=== PATIENT | female | born 1955 | race Caucasian/White ===

== ENCOUNTER 2023-01-25 12:10 | Emergency (ER) | payer MEDICARE, OTHER, SELFPAY ==
[2023-01-25 12:13] VITALS: PULSE 81; RESP 20; TEMP 36.8; O2SAT 97; BMI 51.2
[2023-01-25 12:25] VITALS: BP 180/98
[2023-01-25 12:45] VITALS: O2SAT 97
[2023-01-25 12:46] VITALS: RESP 16; O2SAT 97
--- NOTE | 2023-01-25 12:47 | PC.NURSE ---
THIS NURSE ATTEMPTS TO ELEVATE LEGS IN BED PT REFUSES TO LAY DOWN DUE TO HIP PAIN PT REQUESTING TO SIT AT SIDE OF BED WHEELED CHAIR PLACED AND FEET ELEVATED
--- NOTE | 2023-01-25 14:23 | ED.GENADUL1 ---
HPI - General Adult General Chief complaint: Extremity Problem, Nontraumatic Stated complaint: leg swelling Time Seen by Provider: 01/25/23 14:23 Source: patient Mode of arrival: walk-in Limitations: no limitations History of Present Illness HPI narrative: Patient is a Chronic bilateral peripheral edema/venous stasis dermatitis. Patient is not happy with her physician. Patient sees Dr. Jordin Mathew, [facility]. . All systems are negative except as noted/marked. All systems reviewed and otherwise negative. . Nurses note and vital signs reviewed and patient is not hypoxic. General: The patient appears well and in no apparent distress. Patient is resting comfortably on cart. Patient is not toxic, lethargic, or listless Skin: Warm, dry, no pallor noted. There is no rash noted. No petechiae, purpura. Patient has chronic mild venous stasis dermatitis discoloration to bilateral lower extremities Head: Normocephalic, atraumatic Eye: Normal conjunctiva, no drainage, EOMI. PERRL Ears, Nose, Mouth, and Throat: oral mucosa is moist. Nares patent. Mouth without vesicles. Cardiovascular: Regular Rate and Rhythm, no murmur, gallop, rub Respiratory: Patient is in no distress, no accessory muscle use, lungs are clear to auscultation, no wheezing, rales or rhonchi Back: non-tender, no CVA tenderness bilaterally to percussion. No CT LS midline pain GI: soft, obese, no tenderness to palpation, no masses appreciated. No rebound, guarding, or rigidity noted. No flank pain bilateral, No distention Musculoskeletal: Patient has full range of motion of all of the extremities, no motor, sensory, or focal neurological deficits. Patient has chronic bilateral lower show many peripheral edema, left greater than right. Patient has no pain to the posterior aspect of bilateral posterior thighs, popliteal fossa, or bilateral calves. Patient has no evidence of cellulitis to bilateral lower extremities, no lymphangitis, pelvic from his or not warm, hot, no signs of infection or venous ulcers. Neurological: A&O x3, normal speech Psychiatric: Cooperative Related Data Home Medications Medication Instructions Recorded Confirmed atorvastatin 10 mg tablet 10 mg PO DAILY 01/25/23 01/25/23 cholecalciferol (vitamin D3) 125 125 mcg PO DAILY 01/25/23 01/25/23 mcg (5,000 unit) capsule esomeprazole magnesium 20 mg 20 mg PO DAILY 01/25/23 01/25/23 capsule,delayed release (Nexium) furosemide 20 mg tablet 20 mg PO DAILY 01/25/23 01/25/23 losartan 50 mg tablet (Cozaar) 50 mg PO DAILY 01/25/23 01/25/23 metoprolol tartrate 50 mg tablet 50 mg PO BID 01/25/23 01/25/23 multivitamin 1 tab PO DAILY 01/25/23 01/25/23 potassium chloride 10 mEq 10 meq PO DAILY 01/25/23 01/25/23 capsule,extended release Allergies Allergy/AdvReac Type Severity Reaction Status Date / Time fentanyl Allergy Intermediate Verified 01/25/23 12:18 Sulfa (Sulfonamide Allergy Intermediate Verified 01/25/23 12:18 Antibiotics) adhesive tape AdvReac Intermediate Verified 01/25/23 12:18 Exam Constitutional: Vital Signs, click to edit/add: Vital Signs - 24 hr 01/25/23 12:13 01/25/23 12:45 01/25/23 12:46 Temperature 98.2 F Pulse Rate [Monito r] 81 Respiratory Rate 20 16 Blood Pressure Pulse Oximetry 97 97 97 Oxygen Delivery Me thod Room Air Room Air 01/25/23 12:25 Temperature Pulse Rate [Monito r] Respiratory Rate Blood Pressure 180/98 H Pulse Oximetry Oxygen Delivery Me thod Course Vital Signs Vital signs: Vital Signs Temperature 98.2 F 01/25/23 12:13 Pulse Rate 81 01/25/23 12:13 Respiratory Rate 20 01/25/23 12:13 Pulse Oximetry 97 01/25/23 12:13 Temperature 98.2 F 01/25/23 12:13 Pulse Rate 81 01/25/23 12:13 Respiratory Rate 16 01/25/23 12:46 Blood Pressure 180/98 H 01/25/23 12:25 Pulse Oximetry 97 01/25/23 12:46 Oxygen Delivery Method Room Air 01/25/23 12:46 Medical Decision Making MDM Narrative Medical decision making narrative: Patient has chronic bilateral lower show any peripheral edema, chronic lower extremity venous stasis dermatitis. Patient was told to increase her Lasix 20 mg a day to 40 mg a day for the next 3-5 days. Patient is frustrated with her PCP, a new PCP list was given. Patient is only someone messaged her railway signal electrician through my chart to the [facility], she called a few times last week and was on hold for lengthy amount of time and gave up. Patient was encouraged to call again incident of the messaged to my chart to follow-up with her railway signal electrician they can have manage her chronic bilateral peripheral edema and venous stasis. No acute indication for any testing in the Emergency Room at this time, patient has multiple chronic complaints. Patient was told to come to the Emergency Room by her PCP and urgent care, but there is no acute symptoms today, these are all chronic ongoing issues that need to be medically managed. Patient agrees, thankful for help and encouragement increase Lasix for the next 3-5 days and follow-up Discharge Plan Discharge Chief Complaint: Extremity Problem, Nontraumatic Clinical Impression: Chronic venous stasis dermatitis Patient Disposition: Home, Self-Care Time of Disposition Decision: 14:26 Prescriptions / Home Meds: No Action losartan [Cozaar] 50 mg tablet 50 mg PO DAILY esomeprazole magnesium [Nexium] 20 mg capsule,delayed release(DR/EC) 20 mg PO DAILY metoprolol tartrate 50 mg tablet 50 mg PO BID atorvastatin 10 mg tablet 10 mg PO DAILY multivitamin Tablet 1 tab PO DAILY cholecalciferol (vitamin D3) 125 mcg (5,000 unit) capsule 125 mcg PO DAILY furosemide 20 mg tablet 20 mg PO DAILY potassium chloride 10 mEq capsule, extended release 10 meq PO DAILY Instructions: Stasis Dermatitis (ED), Edema (ED) Additional Instructions: Double dose of Lasix to 40 mg once a day For the next 3-5 days. Call your railway signal electrician today to make a follow-up appointment at the [facility]. Also sent another message through my chart tear railway signal electrician at the clinic clinic for follow-up to help with chronic bilateral peripheral edema. Stand Alone Forms: Portal Instructions Referrals: Sheila Terry MD [Primary Care Provider] - 1 week Discharge Date/Time: 01/25/23 14:32
== END 2023-01-25 14:32 | disposition home or self-care (01) ==
PROVIDERS: Emergency Provider Emergency Medicine; PCP Specialist
DX: I87.2 Venous insufficiency (chronic) (peripheral) (principal); Z79.899 Other long term (current) drug therapy
CPT/HCPCS: 99281

== ENCOUNTER 2023-04-23 07:23 | Emergency (ER) | payer MEDICARE, OTHER, SELFPAY ==
[2023-04-23 07:28] VITALS: BP 170/100; PULSE 70; RESP 18; TEMP 36.6; O2SAT 97; BMI 48.4
--- NOTE | 2023-04-23 07:40 | XR_ITS ---
The [address] [address] Patient Name: MINAL CAPUTO MRN: [id number] date: 1955 Sex: F Assigned Patient Location: ER Current Patient Location: ER Accession/Order Number: [id number] Exam Date: 04/23/2023 08:00 Report Date: 04/23/2023 08:23 At the request of: RICCO ROSEN Procedure: XR hip LT 2V w/ pelvis XR hip LT 2V w/ pelvis, 04/23/2023 8:00 AM EDT, OH001 INDICATION: pain COMPARISON: None. TECHNIQUE: 2 views of the hip obtained. An AP view of the pelvis included. FINDINGS: The osseous structures appear intact. There is normal alignment. There is marked narrowing of the left hip joint space with marginal osteophyte formation. There are no obvious blastic or lytic lesions. Note is made of marked levocurvature in the lower lumbar spine with evidence of posterior fusion at L4-L5. XR/XR hip LT 2V w/ pelvis IMPRESSION: No acute osseous injury with normal alignment. Advanced degenerative change in the left hip joint. Electronically authenticated by: BENITEZ LOPEZ Date: 04/23/2023 08:23
--- NOTE | 2023-04-23 07:43 | ED.LOWEXI1 ---
HPI - Extremity Injury (Lower) General Chief Complaint: Extremity Injury, Lower Stated Complaint: LOWER EXTREMITY PAIN LEFT HIP Time Seen by Provider: 04/23/23 07:43 Source: patient Mode of arrival: walk-in Limitations: no limitations History of Present Illness HPI Narrative: This document has been composed with a new electronic medical record and dragging voice recognition system. This document may not fully inaccurately reflect the entirety of the patient encounter.this patient's here with chief complaint of left hip pain. She's been fully evaluated by orthopedics at the [facility] roughly 1 year ago. They suggested that she needed surgery but unfortunately because of her obesity the were not able to perform the surgery and they advised her to lose weight. 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 She does not have pain acutely today in her low back there is no radiculopathy in her lumbar area she says the pain is primarily over the left lateral hip area. There is no tingling or numbness at this time in her leg. However she also has secondary complaint of pain in her neck that radiates down her right arm. That was also evaluated [facility] and they did not suggest surgery at that time. She's not had any new injuries to the neck area. She does take Celebrex daily basis. She does have a primary care doctor in the community. She has not been offered weight loss medications and I suggest that she talk to her primary care doctor about that possibility. Related Data Home Medications Medication Instructions Recorded Confirmed atorvastatin 10 mg tablet 10 mg PO DAILY 01/25/23 01/25/23 cholecalciferol (vitamin D3) 125 125 mcg PO DAILY 01/25/23 01/25/23 mcg (5,000 unit) capsule esomeprazole magnesium 20 mg 20 mg PO DAILY 01/25/23 01/25/23 capsule,delayed release (Nexium) furosemide 20 mg tablet 20 mg PO DAILY 01/25/23 01/25/23 losartan 50 mg tablet (Cozaar) 50 mg PO DAILY 01/25/23 01/25/23 metoprolol tartrate 50 mg tablet 50 mg PO BID 01/25/23 01/25/23 multivitamin 1 tab PO DAILY 01/25/23 01/25/23 potassium chloride 10 mEq 10 meq PO DAILY 01/25/23 01/25/23 capsule,extended release celecoxib 100 mg capsule (Celebrex) 100 mg PO DAILY 04/23/23 04/23/23 Allergies Allergy/AdvReac Type Severity Reaction Status Date / Time fentanyl Allergy Intermediate Verified 01/25/23 12:18 Sulfa (Sulfonamide Allergy Intermediate Verified 01/25/23 12:18 Antibiotics) adhesive tape AdvReac Intermediate Verified 01/25/23 12:18 PFSH PFSH Social History Smoking status: Never smoker Exam Narrative Exam Narrative: patient awake alert pleasant is able to stand and bear weight. Points to her lateral hip as being the area discomfort. She prefers to sit in a chair rather than on the bed. Overall she's pleasant cooperative she has a host of medical problems are being managed by her primary care doctor. She's had at least two back surgeries done at the [facility] and has been evaluated for her hip at that institution as well. Weight loss seems to be the main challenge and problem as able do surgery until she loses the wait. I suggested she talk to her primary care doctor about prescribing one of the new medications for weight loss and appetite suppression. They are exxtremely effective and may be helpful. Constitutional Vital Signs, click to edit/add: Last Vital Signs Temp 98 F 04/23/23 07:28 Pulse 70 04/23/23 07:28 Resp 18 04/23/23 07:28 BP 170/100 H 04/23/23 07:28 Pulse Ox 97 04/23/23 07:28 O2 Del Method Room Air 04/23/23 07:28 Course Vital Signs Vital signs: Vital Signs Temperature 98 F 04/23/23 07:28 Pulse Rate 70 04/23/23 07:28 Respiratory Rate 18 04/23/23 07:28 Blood Pressure 170/100 H 04/23/23 07:28 Pulse Oximetry 97 04/23/23 07:28 Oxygen Delivery Method Room Air 04/23/23 07:28 Temperature 98 F 04/23/23 07:28 Pulse Rate 70 04/23/23 07:28 Respiratory Rate 18 04/23/23 07:28 Blood Pressure 170/100 H 04/23/23 07:28 Pulse Oximetry 97 04/23/23 07:28 Oxygen Delivery Method Room Air 04/23/23 07:28 MDM - Extremity Injury (Lower) MDM Narrative Medical decision making narrative: x-rays were done to make sure there is no occult fracture in fact there is none. However she is bone on bone in that left hip joint. As discuss earlier on the advised her to follow up with PCP to consider weight loss medication so she is a candidate to have his hip fixed. She also has a history of stasis dermatitis with her legs and she's not wearing her support stockings, I suggested that she go to a medical supply house to get her stockings back on to prevent any developing cellulitis. Discharge Plan Discharge Chief Complaint: Extremity Injury, Lower Clinical Impression: Degenerative joint disease of left hip Patient Disposition: Home, Self-Care Time of Disposition Decision: 09:10 Prescriptions / Home Meds: No Action losartan [Cozaar] 50 mg tablet 50 mg PO DAILY esomeprazole magnesium [Nexium] 20 mg capsule,delayed release(DR/EC) 20 mg PO DAILY metoprolol tartrate 50 mg tablet 50 mg PO BID atorvastatin 10 mg tablet 10 mg PO DAILY multivitamin Tablet 1 tab PO DAILY cholecalciferol (vitamin D3) 125 mcg (5,000 unit) capsule 125 mcg PO DAILY furosemide 20 mg tablet 20 mg PO DAILY potassium chloride 10 mEq capsule, extended release 10 meq PO DAILY celecoxib [Celebrex] 100 mg capsule 100 mg PO DAILY Additional Instructions: prednisone burst for nine days. Off work today and tomorrow, follow-up with primary care doctor to discuss weight loss medication Stand Alone Forms: Portal Instructions Referrals: Physician,Non-Staff, [Primary Care Provider] - 1 week
== END 2023-04-23 09:17 | disposition home or self-care (01) ==
PROVIDERS: Emergency Provider Emergency Medicine Emergency Medical Services
DX: M16.12 Unilateral primary osteoarthritis, left hip (principal); E66.9 Obesity, unspecified; Z68.42 Body mass index [BMI] 45.0-49.9, adult; Z79.899 Other long term (current) drug therapy
CPT/HCPCS: 73502; 99283

== ENCOUNTER 2023-11-05 19:30 | Inpatient (IN) | payer MEDICARE, OTHER, SELFPAY ==
[2023-11-05] VITALS (21 sets, daily range): BP systolic 157–202; BP diastolic 61–85; PULSE 74–93; RESP 12–22; TEMP 36.6; O2SAT 90–97; BMI 48.5; BMI 26.0
--- NOTE | 2023-11-05 19:51 | XR_ITS ---
The [address] [address] Patient Name: MINAL CAPUTO MRN: [id number] date: 1955 Sex: F Assigned Patient Location: ER Current Patient Location: ER Accession/Order Number: [id number] Exam Date: 11/05/2023 19:58 Report Date: 11/05/2023 21:05 At the request of: TAWANA PALMA Procedure: XR chest 1V EXAM: XR chest 1V HISTORY: short of breath COMPARISON: 12/09/[address] chest and chest x-ray. TECHNIQUE: AP portable upright chest x-ray. FINDINGS: Assessment limited due to patient size and body habitus. Cardiac silhouette enlarged but unchanged. No definite infiltrate or edema seen lungs although lung base assessment compromised by overlying soft tissues. Appears similar to previous. MediPort catheter noted on the right tip probably in the area of the proximal SVC. No definite pleural effusion or pneumothorax. Slight spinal hardware/Valadez rods partially imaged similar to previous. XR/XR chest 1V IMPRESSION: Chest x-ray appears stable without new or increasing lung density or pleural effusion. Electronically authenticated by: GALLO VÁSQUEZ Date: 11/05/2023 21:05
--- NOTE | 2023-11-05 19:51 | ECG_ITS ---
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
--- NOTE | 2023-11-05 20:00 | ED.SOB1 ---
HPI - SOB/Dyspnea General Chief Complaint: Shortness of Breath/Dyspnea Stated Complaint: Low Oxygen Count Time Seen by Provider: 11/05/23 19:45 Source: patient Mode of arrival: Wheelchair Limitations: no limitations History of Present Illness HPI Narrative: past history of HTN, hyperlipidemia and breast CA. S/P left mastectomy 08/17. Has port in place and is receiving chemo. Chronic lower extremity edema bilat for past year or longer. Short of breath over past 4-5 days. Received infusion today. While there complained about increased effort to breathe and out patient CTA chest ordered. Patient called natasha and informed she has PE and now she presents to be seen. No chest pain or nausea.No fever. CTA report available and demonstrates filling defects are seen within lobar and segmental branches to the right upper and lower lobes. No saddle emboli Related Data Home Medications Medication Instructions Recorded Confirmed atorvastatin 10 mg tablet 10 mg PO DAILY 01/25/23 11/05/23 cholecalciferol (vitamin D3) 125 125 mcg PO DAILY 01/25/23 11/05/23 mcg (5,000 unit) capsule esomeprazole magnesium 20 mg 20 mg PO DAILY 01/25/23 11/05/23 capsule,delayed release (Nexium) furosemide 20 mg tablet 20 mg PO DAILY 01/25/23 11/05/23 losartan 50 mg tablet (Cozaar) 50 mg PO DAILY 01/25/23 11/05/23 metoprolol tartrate 50 mg tablet 50 mg PO BID 01/25/23 11/05/23 multivitamin 1 tab PO DAILY 01/25/23 11/05/23 potassium chloride 10 mEq 10 meq PO DAILY 01/25/23 11/05/23 capsule,extended release celecoxib 100 mg capsule (Celebrex) 100 mg PO DAILY 04/23/23 04/23/23 docusate sodium 100 mg capsule 100 mg PO DAILY 11/06/23 11/06/23 (Dulcolax Stool Softener (docusate)) Allergies Allergy/AdvReac Type Severity Reaction Status Date / Time fentanyl Allergy Intermediate Verified 11/05/23 19:42 Sulfa (Sulfonamide Allergy Intermediate Verified 11/05/23 19:42 Antibiotics) adhesive tape AdvReac Intermediate Verified 11/05/23 19:42 Review of Systems ROS Status of ROS 10 or more systems reviewed and unremarkable except as noted in history and below [facility] Medical History (Updated 11/06/23 @ 02:06 by Sofia Godfrey RN) Lymph node cancer ?C77.9 - Secondary and unspecified malignant neoplasm of lymph node, unspecified (ICD-10) Numbness and tingling of both lower extremities ?R20.0 - Anesthesia of skin (ICD-10) ?R20.2 - Paresthesia of skin (ICD-10) 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 - Postmastectomy lymphedema syndrome (ICD-10) Rheumatoid arthritis ?M06.9 - Rheumatoid arthritis, unspecified (ICD-10) Spinal stenosis ?M48.00 - Spinal stenosis, site unspecified (ICD-10) Kidney stones ?N20.0 - Calculus of kidney (ICD-10) Heart murmur ?R01.1 - Cardiac murmur, unspecified (ICD-10) Scoliosis ?M41.9 - Scoliosis, unspecified (ICD-10) Hyperlipemia ?E78.5 - Hyperlipidemia, unspecified (ICD-10) Obesity ?E66.9 - Obesity, unspecified (ICD-10) Borderline diabetes ?R73.03 - Prediabetes (ICD-10) Breast cancer ?C50.919 - Malignant neoplasm of unspecified site of unspecified female breast (ICD-10) Edema ?R60.9 - Edema, unspecified (ICD-10) GERD (gastroesophageal reflux disease) ?K21.9 - Gastro-esophageal reflux disease without esophagitis (ICD-10) COPD (chronic obstructive pulmonary disease) ?J44.9 - Chronic obstructive pulmonary disease, unspecified (ICD-10) HTN (hypertension) ?I10 - Essential (primary) hypertension (ICD-10) Surgical History (Updated 11/06/23 @ 01:32 by Sofia Godfrey RN) History of total left knee replacement ?Z96.652 - Presence of left artificial knee joint (ICD-10) History of total right knee replacement ?Z96.651 - Presence of right artificial knee joint (ICD-10) History of back surgery ?Z98.890 - Other specified postprocedural states (ICD-10) Family History (Updated 11/06/23 @ 01:37 by Sofia Godfrey RN) Father Family history of CHF (congestive heart failure) Family history of cancer Sister Family history of stroke Mother Family history of cancer Social History (Updated 11/05/23 @ 22:45 by Sofia Godfrey RN) Within the past year, how often did you have a drink containing alcohol: never Score interpretation: A score less than 3 is consistent with normal alcohol consumption. Smoking status: Never smoker Non-prescribed substance use: denies use Previous occupational history: none Known occupational exposures/hazards: No Highest level of school completed/degree received: some college, no degree Are you now , , , , never or living with a partner: don't know In a typical week, how many times do you talk on the telephone with family, friends, or neighbors: 3 or more times per week How often do you get together with friends or relatives: once per week How often do you attend zoroastrian or adventism services: never Do you belong to any clubs or organizations such as zoroastrian groups unions, [employer] or athletic groups, or school groups: no Total score: 1 Score interpretation: A score of less than or equal to 1 indicates the most socially isolated. Little interest or pleasure in doing things: not at all Feeling down, depressed, or hopeless: not at all Feel stressed/tense/nervous/anxious/difficulty sleeping: to some extent Life stressors: other Life stressor details: diagnosis with breast cancer Do you think of yourself as: decline to answer Gender Identity: decline to answer Exam Constitutional Vital Signs, click to edit/add: Last Vital Signs Temp 97.8 F 11/06/23 04:00 Pulse 67 11/06/23 06:00 Resp 20 11/06/23 04:00 BP 149/63 H 11/06/23 04:00 Pulse Ox 95 11/06/23 06:00 O2 Del Method Nasal Cannula 11/06/23 04:06 O2 Flow Rate 2 11/06/23 04:06 Common normals: no apparent distress (mild resp distress), oriented x3, alert and well nourished HENSD Common normals: normocephalic and head/scalp atraumatic Eye Common normals: EOMs intact bilaterally and conjunctivae normal Respiratory Common normals: normal respiratory effort (mild distress), no retractions, no use of accessory muscles and clear to auscultation bilaterally Cardio Common normals: regular rate, regular rhythm, S1 normal heart sound and S2 normal heart sound GI Common normals: Normal to inspection, nondistended, normoactive bowel sounds present and soft to palpation Extremity Other: bilat lower ext. swelling. Neuro Common normals: oriented x3, CN's II-XII intact bilaterally, moves all extremities, no focal motor deficits and no sensory deficits noted Psych Appearance: grossly normal Course Vital Signs Vital signs: Vital Signs Pulse Oximetry 90 L 11/05/23 19:38 Temperature 97.8 F 11/06/23 04:00 Pulse Rate 67 11/06/23 06:00 Respiratory Rate 20 11/06/23 04:00 Blood Pressure 149/63 H 11/06/23 04:00 Pulse Oximetry 95 11/06/23 06:00 Oxygen Delivery Method Nasal Cannula 11/06/23 04:06 Oxygen Delivery Flow Rate 2 11/06/23 04:06 MDM - SOB/Dyspnea MDM Narrative Medical decision making narrative: patient being treated for breast cancer. Receiving infusion. s/p left mastectomy 08/17. Short of breath past 4-5 days. At infusion center today informed them she was short of breath and out patient CTA ordered and returned positive for multiple PEs. She was called at home and presents here. CTA results obtained and confirm PEs. BP also elevated and treated with catapres. She does have chronic lower ext. edema for past year for which she is prescribed lasix. RBS 237 Troponin neg. Normal EKG. Heparin bolus and drip ordered. Hospitalist paged Lab Data Labs: Lab Results 11/05/23 Range/Units 20:00 WBC 9.1 (4.0-11.0) 10^3/uL RBC 3.69 L (4.20-5.40) 10^6/uL Hgb 11.3 L (12.0-16.0) g/dL Hct 35.5 L (36.0-48.0) % MCV 96.2 (81.0-99.0) fL MCH 30.6 (26.7-34.0) pg MCHC 31.8 (29.9-35.2) g/dL RDW 14.5 (11.0-15.0) % Plt Count 419 (150-450) 10^3/uL MPV 10.4 (9.5-13.5) fL Seg Neuts % (Manual) 82.0 Band Neutrophils % 3.0 (0-5) % Lymphocytes % (Manual) 6.0 L (20.5-60.0) % Atypical Lymphs % (Man) 4.0 % Monocytes % (Manual) 4.0 (1.7-12.0) % Eosinophils % (Manual) 0.0 L (0.9-7.0) % Basophils % (Manual) 0.0 L (0.2-2.0) % Promyelocytes % 1.0 Neutrophils # (Manual) 7.46 H (1.4-6.5) 10^3/uL Band Neutrophils # 0.3 (0.0-0.3) 10^3/uL Lymphocytes # (Manual) 0.54 L (1.20-3.80) 10^3/uL Abs Atypical Lymphs Man 0.36 Monocytes # (Manual) 0.36 (0.30-0.80) 10^3/uL Eosinophils # (Manual) 0.00 (0.00-0.70) 10^3/uL Basophils # (Manual) 0.00 (0.00-0.10) 10^3/uL Promyelocytes # 0.09 PT 10.8 (9.0-11.6) sec INR 1.02 APTT 28.5 (22.3-36.2) sec Sodium 141 (136-145) mmol/L Potassium 4.1 (3.5-5.1) mmol/L Chloride 106 (98-107) mmol/L Carbon Dioxide 23.4 (21.0-32.0) mmol/L Anion Gap 15.7 BUN 11.0 (7.0-18.0) mg/dL Creatinine 1.20 H (0.55-1.02) mg/dL Est GFR ( Amer) 54 L (>=60) Est GFR (Non-Af Amer) 45 L (>=60) BUN/Creatinine Ratio 9.2 Glucose 237 H (74-106) mg/dL Calcium 8.3 L (8.5-10.1) mg/dL Troponin I High Sens 14.5 (4.0-51.3) pg/mL Discharge Plan Discharge Chief Complaint: Shortness of Breath/Dyspnea Clinical Impression: Pulmonary embolism on right Patient Disposition: Admitted As Inpatient Discharge Date/Time: 11/05/23 21:54
--- NOTE | 2023-11-05 20:05 | PC.NURSE ---
Pt is s/p mastectomy August 17 and has started chemotherapy, receiving her second one today. She has been SOB and her Dr ordered a CTA of her chest, which she had done this morning after her chemo. She was called and told to go to the hospital as she has a PE.
[2023-11-05 20:11] LABS: Hematocrit 35.5 % (36.0-48.0); Hemoglobin 11.3 g/dL (12.0-16.0); Mean Corpuscular HGB Conc 31.8 g/dL (29.9-35.2); Mean Corpuscular Hemoglobin 30.6 pg (26.7-34.0); Mean Corpuscular Volume 96.2 fL (81.0-99.0); Mean Platelet Volume 10.4 fL (9.5-13.5); Platelet Count 419 10^3/uL (150-450); Red Blood Count 3.69 10^6/uL (4.20-5.40); Red Cell Distribution Width 14.5 % (11.0-15.0); White Blood Count 9.1 10^3/uL (4.0-11.0)
[2023-11-05 20:28] LABS: Anion Gap 15.7; BUN Creatinine Ratio 9.2; Calcium 8.3 mg/dL (8.5-10.1); Carbon Dioxide 23.4 mmol/L (21.0-32.0); Chloride 106 mmol/L (98-107); Estimated GFR (African America 54 (>=60); Estimated GFR (Non-African Ame 45 (>=60); Glucose 237 mg/dL (74-106); Potassium 4.1 mmol/L (3.5-5.1); Sodium 141 mmol/L (136-145); Troponin I High Sensitivity 14.5 pg/mL (4.0-51.3)
[2023-11-05 21:02] LABS: Atypical Lymphocytes Abs Man 0.36; Band Neutrophils Absolute 0.3 10^3/uL (0.0-0.3); Lymphocytes Absolute Manual 0.54 10^3/uL (1.20-3.80); Monocytes Absolute Manual 0.36 10^3/uL (0.30-0.80); Promyelocytes Absolute Manual 0.09; Segmented Neut Absolute Manual 7.46 10^3/uL (1.4-6.5)
[2023-11-05] MEDS: HEPARIN SODIUM (PORCINE) 5,000 UNIT/ML VIAL 6200 UNIT IV (21:06)
[2023-11-05] MEDS: HEPARIN SODIUM,PORCINE/D5W 25,000 UNIT/500 ML IV.SOLN 28.1159999999999997 UNIT IV (21:07)
[2023-11-05] MEDS: CLONIDINE HCL 0.1 MG TABLET 0.100000000000000006 MG PO (21:15)
[2023-11-05 22:04] LABS: INR 1.02; Partial Thromboplastin Time 28.5 sec (22.3-36.2); Prothrombin Time 10.8 sec (9.0-11.6)
[2023-11-05] MEDS: INSULIN ASPART 300 UNIT/3 ML PEN SUBQ (23:19)
[2023-11-05] MEDS: FAMOTIDINE/PF 20 MG/2 ML VIAL IV (23:19)
[2023-11-05] MEDS: 0.9 % SODIUM CHLORIDE 1,000 ML 75 ML IV (23:20)
[2023-11-05 23:26] LABS: Glucometer 236 mg/dL (74-106)
[2023-11-05 23:40] LABS: Bilirubin Urine NEGATIVE (NEGATIVE); Blood Urine NEGATIVE (NEGATIVE); Clarity Urine CLEAR (CLEAR); Color Urine YELLOW (YELLOW); Glucose Urine UA 500 mg/dL (NEGATIVE); Ketones Urine TRACE mg/dL (NEGATIVE); Leukocyte Esterase Urine NEGATIVE (NEGATIVE); Nitrite Urine NEGATIVE (NEGATIVE); Protein Urine TRACE mg/dL (NEG/TRACE); Specific Gravity Urine 1.025 (1.005-1.025); Urobilinogen Urine 0.2 EU/dL (0.2-1.0); pH Urine 5.5 (5.0-9.0)
[2023-11-05 23:51] LABS: Bacteria Urine NONE SEEN #/HPF (NONE SEEN); Mucus Urine NONE SEEN (NONE SEEN); RBC Urine NONE SEEN #/HPF (0-2); Squamous Epithelial Cell Urine MODERATE #/LPF (NONE/RARE); WBC Urine 0-2 #/HPF (NONE SEEN)
[2023-11-05] MEDS: HYDRALAZINE HCL 20 MG/ML VIAL 10 MG IVP (23:51)
[2023-11-05 23:52] LABS: Amorphous Sediment Urine FEW; Crystals Seen? None Seen #/HPF (None Seen)
[2023-11-05 23:53] LABS: Cast Seen? NONE SEEN #/LPF (NONE SEEN)
[2023-11-06] VITALS (118 sets, daily range): BP systolic 149–181; BP diastolic 63–79; PULSE 58–97; RESP 10–34; TEMP 36.4–36.9; O2SAT 84–99
[2023-11-06 03:32] LABS: Basophils Absolute Auto 0.1 10^3/uL (0.0-0.1); Basophils Percent Auto 0.5 % (0.2-2.0); Hematocrit 32.3 % (36.0-48.0); Hemoglobin 10.2 g/dL (12.0-16.0); Immature Granulocytes Abs Auto 0.65 10^3/uL (0.00-0.03); Immature Granulocytes Pct Auto 6.5 % (0.0-0.5); Lymphocytes Absolute Auto 0.9 10^3/uL (1.2-3.8); Lymphocytes Percent Auto 8.9 % (20.5-60.0); Mean Corpuscular HGB Conc 31.6 g/dL (29.9-35.2); Mean Corpuscular Hemoglobin 30.4 pg (26.7-34.0); Mean Corpuscular Volume 96.4 fL (81.0-99.0); Mean Platelet Volume 10.4 fL (9.5-13.5); Monocytes Absolute Auto 0.7 10^3/uL (0.3-0.8); Monocytes Percent Auto 7.1 % (1.7-12.0); Neutrophils Absolute Auto 7.7 10^3/uL (1.4-6.5); Platelet Count 419 10^3/uL (150-450); Red Blood Count 3.35 10^6/uL (4.20-5.40); Red Cell Distribution Width 14.3 % (11.0-15.0)
[2023-11-06 03:51] LABS: PCO2 VBG 41.8 mmHg (40.0-52.0); pH VBG 7.365 (7.330-7.430)
[2023-11-06 04:08] LABS: PTT Heparin Monitor 85.1 sec (48.2-68.6)
[2023-11-06 04:22] LABS: Alanine Aminotransferase 51 U/L (14-59); Albumin Globulin Ratio 0.7; Albumin Level 2.5 g/dL (3.4-5.0); Alkaline Phosphatase 112 U/L (46-116); Anion Gap 12.5; Aspartate Amino Transferase 25 U/L (15-37); BUN Creatinine Ratio 16.1; Bilirubin Total 0.3 mg/dL (0.2-1.0); Calcium 8.1 mg/dL (8.5-10.1); Carbon Dioxide 24.4 mmol/L (21.0-32.0); Chloride 108 mmol/L (98-107); Estimated GFR (African America >60 (>=60); Estimated GFR (Non-African Ame >60 (>=60); Globulin 3.4 g/dL; Glucose 237 mg/dL (74-106); Potassium 3.9 mmol/L (3.5-5.1); Sodium 141 mmol/L (136-145); Total Protein 5.9 g/dL (6.4-8.2); Troponin I High Sensitivity 9.3 pg/mL (4.0-51.3)
[2023-11-06 04:37] LABS: INR 1.13; Prothrombin Time 11.9 sec (9.0-11.6)
[2023-11-06 07:45] LABS: Glucometer 195 mg/dL (74-106)
--- NOTE | 2023-11-06 07:52 | US_ITS ---
The [address] [address] Patient Name: MINAL CAPUTO MRN: [id number] date: 1955 Sex: F Assigned Patient Location: ICU Current Patient Location: ICU Accession/Order Number: [id number] Exam Date: 11/06/2023 07:15 Report Date: 11/06/2023 18:52 At the request of: BARRINGTON BARBOSA Procedure: US venous doppler LE BI EXAM: US venous doppler LE BI HISTORY: R/o DVT; Hx Chronic leg edema/venous stasis COMPARISON: None. TECHNIQUE: Bilateral duplex venous ultrasound with compression right and left leg deep veins groin to calf. Saphenous vein also evaluated in the groin/proximal thigh area. FINDINGS: Right leg: Deep veins well visualized demonstrate normal color flow and are fully compressible without thrombus or occlusion. Normal appearance of the saphenous vein in the groin. No focal fluid collection. Left leg: Deep veins well visualized demonstrate normal color flow and are fully compressible without thrombus or occlusion. Normal flow and compressibility the saphenous vein in the groin to proximal thigh area. Subcutaneous edema noted without focal fluid collection. US/US venous doppler LE BI IMPRESSION: 1. Negative for DVT right or left leg. 2. Negative for saphenous thrombus right and left groin/ proximal thigh. 3. Subcutaneous edema left leg. Electronically authenticated by: GALLO VÁSQUEZ Date: 11/06/2023 18:52
[2023-11-06] MEDS: ATORVASTATIN CALCIUM 10 MG TABLET PO (09:21)
[2023-11-06] MEDS: OMEPRAZOLE 20 MG CAPSULE.DR PO (09:22)
[2023-11-06] MEDS: LOSARTAN POTASSIUM 50 MG TABLET PO ×2 (09:22→12:53)
[2023-11-06] MEDS: CHOLECALCIFEROL (VITAMIN D3) 125 MCG/5,000 UNIT TABLET PO (09:22)
[2023-11-06] MEDS: FUROSEMIDE 20 MG TABLET PO (09:23)
[2023-11-06] MEDS: POTASSIUM CHLORIDE 10 MEQ ER TABLET PO (09:23)
[2023-11-06] MEDS: METOPROLOL TARTRATE 50 MG TABLET PO ×2 (09:23→22:12)
[2023-11-06] MEDS: MULTIVITAMIN TABLET 1 TAB PO (09:23)
[2023-11-06] MEDS: FAMOTIDINE/PF 20 MG/2 ML VIAL IV ×2 (09:24→22:11)
--- NOTE | 2023-11-06 09:57 | CA_ITS ---
Patient Name: MINAL CAPUTO MR#: [id number] : 1955 Exam Date: 11/06/2023 Ordering Doctor: Shaikh Kianna Walker . ECHOCARDIOGRAM REPORT PROCEDURE: CA ECHO DOPPLER COMPLETE INDICATIONS: PE, assess for right heart strain COMPARISON: None. DESCRIPTION: COMPLETE ECHOCARDIOGRAM Real-time transthoracic echocardiography with 2D, M-mode, spectral and color flow Doppler performed. QUALITY: Technical quality was good. LEFT VENTRICLE: Normal chamber size. Thickened septal wall. LV EF: Global left ventricular systolic function is normal. Calculated left ventricular ejection fraction is 59%. No significant wall motion abnormalities. DIASTOLIC: Grade II diastolic dysfunction. ATRIAL SEPTUM: Inadequately seen. LEFT ATRIUM: Mild dilatation. RIGHT ATRIUM: Normal chamber size. RIGHT VENTRICLE: Normal chamber size. Normal right ventricular systolic function. TRICUSPID VALVE: Normal mobility and thickness. No stenosis with trivial regurgitation. Moderate pulmonary hypertension. RVSP 56mmHg MITRAL VALVE: Normal mobility and thickness. No evidence of mitral valve stenosis. Mild mitral regurgitation. AORTIC VALVE: Normal trileaflet appearance. No visible sclerosis. Normal leaflet mobility. No evidence of aortic valve stenosis. AORTIC ROOT: Normal diameter and appearance. PULMONIC VALVE: Normal thickness and mobility. No stenosis. Trivial regurgitation. PERICARDIUM: Anterior free space; trivial effusion versus fat pad. IVC: Mild dilatation. Measuring 2.3cm with no collapse. CONCLUSION: 1. Global left ventricular systolic function is normal; visually estimated ejection fraction is 55 to 60% 2. The right ventricle is normal in size and systolic function 3. Mild left atrial dilatation 4. Grade 2 diastolic dysfunction 5. Moderately elevated right ventricular systolic pressure; RVSP 56 mmHg 6. Mild mitral regurgitation 7. Anterior free space; trivial effusion versus fat pad Adult Echocardiography Procedure Report Left Ventricle LVEDD (3.7 - 5.6 cm): 4.24 cm LVESD (2.2 - 4.0 cm): 2.54 cm LVIVS thickness (0.6 - 1.2 cm): 1.39 cm LVPW thickness (0.5 - 1.0 cm): 1.07 cm e': 0.06 m/s E - e': 18.72 LVOT Max Gradient: 4.89 mm[Hg] LVOT Area (cm2): 1.11 m/s Peak Velocity (LVOT): 1.11 m/s Mean Velocity (LVOT): 0.76 m/s LVOT Diameter 1.89 cm Left Ventricular Ejection Fraction: 59.42 % Left Atrium LA Volume Index (2D A2C): 42.34 ml/m2 Left Atrium Systolic Dimension: 4.34 cm Mitral Valve MV E to A Ratio: 0.97 Mitral Valve A-Wave Peak Velocity: 1.07 m/s Mitral Valve E-Wave Peak Velocity: 1.03 m/s Right Ventricle RV Internal Diastolic Dimension: 3.19 cm Aorta AO Root Diam: 2.82 cm Ascending Ao Diam: 2.69 cm Aortic Valve AoV Area (Peak Donnie): 1.84 cm2, 1.84 cm2 AoV Area (VTI): 1.62 cm2, 1.62 cm2 Peak Velocity(Antegrade Flow): 1.69 m/s Peak Gradient(Antegrade Flow): 11.36 mm[Hg] Mean Velocity(Antegrade Flow): 1.17 m/s Mean Gradient(Antegrade Flow): 6.26 mm[Hg] Velocity Time Integral: 42.09 cm Tricuspid Valve Peak Velocity (Regurgitant Flow): 3.19 m/s, 2.90 m/s, 3.06 m/s Pulmonic Valve Mean Gradient: 3.98 mm[Hg] Mean Velocity: 0.94 m/s Peak Velocity: 1.41 m/s, 1.32 m/s Peak Gradient: 6.97 mm[Hg], 7.91 mm[Hg] Right Atrium Right Atrium Systolic Pressure: 37.63 ml, 37.63 ml Dictated by: Skyler Vaughan M.D. on 11/07/2023 at 09:35 Approved by: Skyler Vaughan M.D. on 11/07/2023 at 09:38
--- NOTE | 2023-11-06 10:01 | SWNOTE1 ---
SW received message from case management and pt is current with Efrain KHAN.
--- NOTE | 2023-11-06 10:21 | P.HP_ITS ---
HPI H&P: HPI History of Present Illness Chief complaint: Low Oxygen Count, PE Narrative: 68 y o female with hx of right breast cancer, s/p mastectomy in 08/17 and currently in treatment for it, had her 2nd dose of chemo yesterday and mentioned it to her oncologist that she is experiencing worsening SOB x 1-2 weeks. She got an outpatient CTA that showed multiple right pum embolism with pulm infarcation. She was instructed to go to ED. Patient presented to [facility] ED last night, her vitals were stable with no resp compromise and basic labs that were unremarkable. She was admitted acute Pulm Embolism and was started on IV heparin. Her pulse Ox was borderline low but no documentation of hypoxia in EMR. She is currently on RA. She reports shortness of breath at baseline that has worsened over past 1-2 weeks. Upon further questioning, she reported LLE swelling and mild erythema that had developed over past 1-2 weeks. patient denies prior hx of VTE but has fhx of factor 5 mutation. She denies CP, palpitations, leg pain. Opioid HPI Opioid Management Most Recent Opioid Data: Last Pain Assessment 11/06/23 07:46 Last ORT Total Score 0 11/05/23 22:10 Last ORT Risk Category Low Risk 11/05/23 22:10 Review of Systems ROS Status of ROS 10 or more systems reviewed and unremark able except as noted in history and below [facility] Medical History (Updated 11/06/23 @ 10:31 by Shaikh Aaron MD) Lymph node cancer ?C77.9 - Secondary and unspecified malignant neoplasm of lymph node, unspecified (ICD-10) Numbness and tingling of both lower extremities ?R20.0 - Anesthesia of skin (ICD-10) ?R20.2 - Paresthesia of skin (ICD-10) 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 - Postmastectomy lymphedema syndrome (ICD-10) Rheumatoid arthritis ?M06.9 - Rheumatoid arthritis, unspecified (ICD-10) Spinal stenosis ?M48.00 - Spinal stenosis, site unspecified (ICD-10) Kidney stones ?N20.0 - Calculus of kidney (ICD-10) Heart murmur ?R01.1 - Cardiac murmur, unspecified (ICD-10) Scoliosis ?M41.9 - Scoliosis, unspecified (ICD-10) Hyperlipemia ?E78.5 - Hyperlipidemia, unspecified (ICD-10) Obesity ?E66.9 - Obesity, unspecified (ICD-10) Borderline diabetes ?R73.03 - Prediabetes (ICD-10) Breast cancer ?C50.919 - Malignant neoplasm of unspecified site of unspecified female breast (ICD-10) Edema ?R60.9 - Edema, unspecified (ICD-10) GERD (gastroesophageal reflux disease) ?K21.9 - Gastro-esophageal reflux disease without esophagitis (ICD-10) COPD (chronic obstructive pulmonary disease) ?J44.9 - Chronic obstructive pulmonary disease, unspecified (ICD-10) HTN (hypertension) ?I10 - Essential (primary) hypertension (ICD-10) Surgical History (Updated 11/06/23 @ 01:32 by Sofia Godfrey RN) History of total left knee replacement ?Z96.652 - Presence of left artificial knee joint (ICD-10) History of total right knee replacement ?Z96.651 - Presence of right artificial knee joint (ICD-10) History of back surgery ?Z98.890 - Other specified postprocedural states (ICD-10) Family History (Updated 11/06/23 @ 01:37 by Sofia Godfrey RN) Father Family history of CHF (congestive heart failure) Family history of cancer Sister Family history of stroke Mother Family history of cancer Social History (Updated 11/05/23 @ 22:45 by Sofia Godfrey RN) Within the past year, how often did you have a drink containing alcohol: never Score interpretation: A score less than 3 is consistent with normal alcohol consumption. Smoking status: Never smoker Non-prescribed substance use: denies use Previous occupational history: none Known occupational exposures/hazards: No Highest level of school completed/degree received: some college, no degree Are you now , , , , never or living with a partner: don't know In a typical week, how many times do you talk on the telephone with family, friends, or neighbors: 3 or more times per week How often do you get together with friends or relatives: once per week How often do you attend orthodox or rastafari services: never Do you belong to any clubs or organizations such as orthodox groups unions, fraMeasureful or athletic groups, or school groups: no Total score: 1 Score interpretation: A score of less than or equal to 1 indicates the most socially isolated. Little interest or pleasure in doing things: not at all Feeling down, depressed, or hopeless: not at all Feel stressed/tense/nervous/anxious/difficulty sleeping: to some extent Life stressors: other Life stressor details: diagnosis with breast cancer Do you think of yourself as: decline to answer Gender Identity: decline to answer Meds Home Medications and Allergies Home Medications Medication Instructions Recorded Confirmed Type atorvastatin 10 mg tablet 10 mg PO DAILY 01/25/23 11/05/23 History cholecalciferol (vitamin D3) 125 125 mcg PO DAILY 01/25/23 11/05/23 History mcg (5,000 unit) capsule esomeprazole magnesium 20 mg 20 mg PO DAILY 01/25/23 11/05/23 History capsule,delayed release (Nexium) furosemide 20 mg tablet 20 mg PO DAILY 01/25/23 11/05/23 History losartan 50 mg tablet (Cozaar) 50 mg PO DAILY 01/25/23 11/05/23 History metoprolol tartrate 50 mg tablet 50 mg PO BID 01/25/23 11/05/23 History multivitamin 1 tab PO DAILY 01/25/23 11/05/23 History potassium chloride 10 mEq 10 meq PO DAILY 01/25/23 11/05/23 History capsule,extended release celecoxib 100 mg capsule (Celebrex) 100 mg PO DAILY 04/23/23 04/23/23 History docusate sodium 100 mg capsule 100 mg PO DAILY 11/06/23 11/06/23 History (Dulcolax Stool Softener (docusate)) Allergies Allergy/AdvReac Type Severity Reaction Status Date / Time fentanyl Allergy Intermediate Verified 11/05/23 19:42 Sulfa (Sulfonamide Allergy Intermediate Verified 11/05/23 19:42 Antibiotics) adhesive tape AdvReac Intermediate Verified 11/05/23 19:42 Exam Constitutional Vital Signs, click to edit/add: Last Vital Signs Temp 98.0 F 11/06/23 07:46 Pulse 84 11/06/23 09:50 Resp 27 H 11/06/23 09:50 BP 181/79 H 11/06/23 09:47 Pulse Ox 96 11/06/23 09:50 O2 Del Method Nasal Cannula 11/06/23 07:46 O2 Flow Rate 2 11/06/23 07:46 Documenting provider has reviewed patient's vital signs: yes Common normals: no apparent distress and oriented x3 Nutritional appearance: obese HENMT Common normals: normocephalic and head/scalp atraumatic Respiratory Common normals: normal respiratory effort, no use of accessory muscles and clear to auscultation bilaterally Effort & inspection: able to speak in complete sentences Cardio Common normals: no JVD, regular rate, regular rhythm, S1 normal heart sound and S2 normal heart sound GI Common normals: Normal to inspection, nondistended, normoactive bowel sounds present, soft to palpation, non-tender and no hepatosplenomegaly Extremity General: edema (+3 LLE edema, alongwith erythema) Neuro Common normals: oriented x3, CN's II-XII intact bilaterally, moves all extremities, no focal motor deficits and no sensory deficits noted Psych Common normals: mental status grossly normal, thought process normal, denies homicidal ideation and denies suicidal ideation Results Labs Labs: Short CBC 11/05/23 11/06/23 Range/Units 20:00 03:07 WBC 9.1 10.0 (4.0-11.0) 10^3/uL Hgb 11.3 L 10.2 L (12.0-16.0) g/dL Hct 35.5 L 32.3 L (36.0-48.0) % Plt Count 419 419 (150-450) 10^3/uL BMP 11/05/23 11/06/23 20:00 03:07 Sodium 141 141 Potassium 4.1 3.9 Chloride 106 108 H Carbon Dioxide 23.4 24.4 BUN 11.0 14.0 Creatinine 1.20 H 0.87 Glucose 237 H 237 H Calcium 8.3 L 8.1 L Liver Function 11/06/23 Range/Units 03:07 Total Bilirubin 0.3 (0.2-1.0) mg/dL AST 25 (15-37) U/L ALT 51 (14-59) U/L Alkaline Phosphatase 112 (46-116) U/L Albumin 2.5 L (3.4-5.0) g/dL Urine 11/05/23 Range/Units 22:15 Urine Color Yellow (YELLOW) Urine Clarity Clear (CLEAR) Urine pH 5.5 (5.0-9.0) Ur Specific [place] 1.025 (1.005-1.025) Urine Protein Trace (NEG/TRACE) mg/dL Urine Glucose (UA) 500 A (NEGATIVE) mg/dL ABG ABG results: 11/06/23 03:07 VBG pH 7.365 VBG pCO2 41.8 Assessment and Plan Assessment and Plan (1) Pulmonary embolism and infarction: Assessment and Plan: Multiple lobar, segmental filling defects in right upper and middle lobe with small area of pulm infarction. No evidence of right heart strain. Check BNP, Trop. ECHO to assess cardiac structure and r/o right heart strain On IV hepatin. Stable hemodynamics and no evidencce of resp compromise She has subjective sob and feels worse on minimal exertion C/w inpatient monitoring as high risk of mortality due to hx of cancer, multiple PEs, evidence of pulm infarction Possible d/c if remains hemodynamically stable. There is fhx of factor 5 mutation - will order to check if patient has it or not. LLE US was already performed - result pending. (2) Shortness of breath: Assessment and Plan: Due to PE. Borderline hypoxia on presentation with pulse ox down to 90s Improved from overnight. (3) Breast cancer, right: Assessment and Plan: S/p mastectoymy followed by lymph node resection on left. Currently in treatment. Received 2nd dose of chemo on 11/05/23 Qualifiers: Breast location: unspecified site of breast Estrogen receptor status: unspecified Patient sex: female Qualified Code(s): C50.911 - Malignant neoplasm of unspecified site of right female breast (4) HTN (hypertension): Assessment and Plan: Poorly controlled. Increased losartan to 100 mg. C/w lopressor. Qualifiers: Hypertension type: primary hypertension Qualified Code(s): I10 - Essential (primary) hypertension (5) GERD (gastroesophageal reflux disease): Assessment and Plan: Cw PPI Qualifiers: Esophagitis presence: without esophagitis Qualified Code(s): K21.9 - Gastro-esophageal reflux disease without esophagitis (6) Obesity: Assessment and Plan: Will benefit from weight loss. Outpatient treatment recommended Qualifiers: Obesity classification: unspecified obesity classification Obesity type: due to excess calories Serious obesity comorbidity presence: without serious comorbidity Qualified Code(s): E66.09 - Other obesity due to excess calories (7) Hyperlipemia: Assessment and Plan: C/w lipitor. Qualifiers: Hyperlipidemia type: unspecified Qualified Code(s): E78.5 - Hyperlipidemia, unspecified
[2023-11-06 10:24] LABS: PTT Heparin Monitor 96.5 sec (48.2-68.6)
--- NOTE | 2023-11-06 10:28 | PHOTOS ---
bilateral lower leg
[2023-11-06 11:05] LABS: Troponin I High Sensitivity 9.1 pg/mL (4.0-51.3)
--- NOTE | 2023-11-06 11:11 | W.PM.WC ---
Wound Consult Note Assessment and Plan (1) Pulmonary embolism and infarction: (2) Shortness of breath: (3) Breast cancer, right: Qualifiers: Breast location: unspecified site of breast Estrogen receptor status: unspecified Patient sex: female Qualified Code(s): C50.911 - Malignant neoplasm of unspecified site of right female breast (4) HTN (hypertension): Qualifiers: Hypertension type: primary hypertension Qualified Code(s): I10 - Essential (primary) hypertension (5) GERD (gastroesophageal reflux disease): Qualifiers: Esophagitis presence: without esophagitis Qualified Code(s): K21.9 - Gastro-esophageal reflux disease without esophagitis (6) Obesity: Qualifiers: Obesity type: due to excess calories Obesity classification: unspecified obesity classification Serious obesity comorbidity presence: without serious comorbidity Qualified Code(s): E66.09 - Other obesity due to excess calories (7) Hyperlipemia: Qualifiers: Hyperlipidemia type: unspecified Qualified Code(s): E78.5 - Hyperlipidemia, unspecified Plan Consult: Bilateral lower leg abrasions, redness, edema Consulted to see patient due to BLE abrasions. Patient currently sitting up in chair with legs elevated. Legs are dry, intact. No drainage or open ulcerations noted. Patient does have a red, warm patch of skin on her left lateral leg that is very dry and cracked. Recommendations: Moisturizer of choice to bilateral lower legs every shift. Keep legs elevated. No open ulcers noted. Will sign off for now. Please reconsult if any additional concerns arise. Carlos Eid, ROXYN, RN, CWON
--- NOTE | 2023-11-06 11:24 | CM.NOTE ---
Rounds made with Dr. Walker, discussed reason for hospital admission and educated pt on plan of care. Pt will have cardiac echo today. Discussed and educated pt on new medication that she will start, Eliquis. Pt provided card for 30 day free trial.
--- NOTE | 2023-11-06 11:26 | CM.NOTE ---
Important Message From Medicare discussed with pt, pt verbalizes understanding and signs paper. Original given to pt and copy placed in pt's chart.
[2023-11-06 12:59] LABS: Glucometer 137 mg/dL (74-106)
[2023-11-06 15:47] LABS: PTT Heparin Monitor 70.5 sec (48.2-68.6)
[2023-11-06] MEDS: HEPARIN SODIUM,PORCINE/D5W 25,000 UNIT/500 ML IV.SOLN 22 UNIT IV (15:50)
[2023-11-06] MEDS: FUROSEMIDE 20 MG/2 ML VIAL IVP (16:34)
--- NOTE | 2023-11-06 17:47 | PC.NURSE ---
Patient was sleeping with bilateral chest rise noted. SPO2 decreased to 82% while resting. 2LNC Oxygen was applied to patient and appropriate rise in SPO2 was noted. Patient states that she has been told that she needs to have a sleep study done but will not wear a mask. Will continue to monitor patient.
[2023-11-06 18:06] LABS: Glucometer 194 mg/dL (74-106)
--- NOTE | 2023-11-06 19:37 | RESP.RT ---
titrated down to 2L
[2023-11-06 21:48] LABS: PTT Heparin Monitor 58.1 sec (48.2-68.6)
[2023-11-06 22:19] LABS: Glucometer 141 mg/dL (74-106)
[2023-11-07] VITALS (26 sets, daily range): BP systolic 150–231; BP diastolic 65–91; PULSE 56–104; RESP 16–18; TEMP 36.7–36.9; O2SAT 84–99
--- NOTE | 2023-11-07 00:06 | PC.NURSE ---
Patient removed oxygen while up to bathroom. Upon returning to bed from bathroom, SPO2 83% when initially returning to bed. Oxygen reapplied at 2 LNC and SPO2 increased to 98% in 90 second timeframe. SOB resolved with rest. Denies chest pain or others symptoms during activity.
[2023-11-07 04:24] LABS: Basophils Percent Auto 0.3 % (0.2-2.0); Eosinophils Percent Auto 0.1 % (0.9-7.0); Hematocrit 31.6 % (36.0-48.0); Hemoglobin 9.9 g/dL (12.0-16.0); Immature Granulocytes Abs Auto 0.15 10^3/uL (0.00-0.03); Immature Granulocytes Pct Auto 1.5 % (0.0-0.5); Lymphocytes Absolute Auto 1.7 10^3/uL (1.2-3.8); Lymphocytes Percent Auto 17.1 % (20.5-60.0); Mean Corpuscular HGB Conc 31.3 g/dL (29.9-35.2); Mean Corpuscular Hemoglobin 30.1 pg (26.7-34.0); Mean Platelet Volume 10.1 fL (9.5-13.5); Monocytes Absolute Auto 0.4 10^3/uL (0.3-0.8); Monocytes Percent Auto 3.5 % (1.7-12.0); Neutrophils Absolute Auto 7.8 10^3/uL (1.4-6.5); Neutrophils Percent Auto 77.5 % (43.0-75.0); Platelet Count 488 10^3/uL (150-450); Red Blood Count 3.29 10^6/uL (4.20-5.40); Red Cell Distribution Width 14.5 % (11.0-15.0)
[2023-11-07 04:35] LABS: Alanine Aminotransferase 52 U/L (14-59); Albumin Globulin Ratio 0.8; Albumin Level 2.5 g/dL (3.4-5.0); Alkaline Phosphatase 103 U/L (46-116); Anion Gap 12.8; Aspartate Amino Transferase 22 U/L (15-37); BUN Creatinine Ratio 21.4; Bilirubin Total 0.2 mg/dL (0.2-1.0); Calcium 8.3 mg/dL (8.5-10.1); Carbon Dioxide 27.1 mmol/L (21.0-32.0); Chloride 105 mmol/L (98-107); Estimated GFR (African America >60 (>=60); Estimated GFR (Non-African Ame >60 (>=60); Glucose 140 mg/dL (74-106); Potassium 3.9 mmol/L (3.5-5.1); Sodium 141 mmol/L (136-145); Total Protein 5.5 g/dL (6.4-8.2)
[2023-11-07 04:38] LABS: PTT Heparin Monitor 66.4 sec (48.2-68.6)
[2023-11-07 07:36] LABS: Glucometer 139 mg/dL (74-106)
[2023-11-07] MEDS: ATORVASTATIN CALCIUM 10 MG TABLET PO (08:00)
[2023-11-07] MEDS: CHOLECALCIFEROL (VITAMIN D3) 125 MCG/5,000 UNIT TABLET PO (08:01)
[2023-11-07] MEDS: OMEPRAZOLE 20 MG CAPSULE.DR PO (08:01)
[2023-11-07] MEDS: POTASSIUM CHLORIDE 10 MEQ ER TABLET PO (08:01)
[2023-11-07] MEDS: MULTIVITAMIN TABLET 1 TAB PO (08:01)
[2023-11-07] MEDS: FUROSEMIDE 20 MG TABLET PO (08:01)
[2023-11-07] MEDS: METOPROLOL TARTRATE 50 MG TABLET PO ×2 (08:01→21:18)
[2023-11-07] MEDS: FAMOTIDINE/PF 20 MG/2 ML VIAL IV ×2 (09:03→21:18)
[2023-11-07] MEDS: LOSARTAN POTASSIUM 50 MG TABLET 100 MG PO (09:03)
[2023-11-07] MEDS: APIXABAN 5 MG TABLET 10 MG PO ×2 (09:28→21:20)
--- NOTE | 2023-11-07 10:18 | CM.NOTE ---
Rounds made with Dr. Walker, pt will discharge to home today. RN will do walk test to determine need for home oxygen. Pt is established with [facility] .
[2023-11-07] MEDS: FUROSEMIDE 40 MG/4 ML VIAL IVP ×2 (10:20→21:18)
--- NOTE | 2023-11-07 10:51 | P.IMPN_ITS ---
Progress Note: A&P Assessment and Plan (1) Pulmonary embolism and infarction: Assessment and Plan: Switched to PO eliquis. First dose given earlier today. No evidence of right heart strain on ECHO Normal Trop, BNP Provoked PE - has oncology following her - who will determine appropriate dura tion of anticoagulation . (2) Acute on chronic diastolic heart failure: Assessment and Plan: Grade 2 diastolic dysfunction - volume overload on exam, will start on IV lasix 40 q12. Monitor UO, daily weights. (3) Acute respiratory failure with hypoxia: Assessment and Plan: Hypoxic on ambulation - likely multifactorial and sec to PE and acute on chronic diastolic HF. Wean off O2 as tolerated Treat underlying CHF and PE (4) Shortness of breath: Assessment and Plan: Due to PE and acute CHF (5) Breast cancer, right: Assessment and Plan: S/p mastectomy, on chemo Qualifiers: Breast location: unspecified site of breast Estrogen receptor status: unspecified Patient sex: female Qualified Code(s): C50.911 - Malignant neoplasm of unspecified site of right female breast (6) HTN (hypertension): Assessment and Plan: Poorly controlled - Increaseed losartan to 100. Added aldactone. Qualifiers: Hypertension type: primary hypertension Qualified Code(s): I10 - Essential (primary) hypertension (7) GERD (gastroesophageal reflux disease): Assessment and Plan: C/w nexium Qualifiers: Esophagitis presence: without esophagitis Qualified Code(s): K21.9 - Gastro-esophageal reflux disease without esophagitis (8) Obesity: Qualifiers: Obesity classification: unspecified obesity classification Obesity type: due to excess calories Serious obesity comorbidity presence: without serious comorbidity Qualified Code(s): E66.09 - Other obesity due to excess calories (9) Hyperlipemia: Assessment and Plan: c/w statin Qualifiers: Hyperlipidemia type: unspecified Qualified Code(s): E78.5 - Hyperlipidemia, unspecified Plan Needs continued inpatient management, as hypoxic due to acute on chronic diastolic HF - requiring IV diuretics. Internal Medicine - PN: Subj Subjective Interval history: Seen and examined. Patient develops hypoxia with pulse Ox down to 82 % upon ambulation. She is still quite short of breath. She is complaining of b/l LE edema Exam Constitutional Vital Signs, click to edit/add: Last Vital Signs Temp 98.4 F 11/07/23 07:00 Pulse 71 11/07/23 08:00 Resp 16 11/07/23 08:00 BP 166/76 H 11/06/23 23:59 Pulse Ox 95 11/07/23 04:44 O2 Del Method Nasal Cannula 11/07/23 04:44 O2 Flow Rate 2 11/07/23 04:44 Common normals: no apparent distress, average body habitus and oriented x3 Nutritional appearance: obese HENMT Common normals: normocephalic and head/scalp atraumatic Eye Common normals: PERRL and EOMs intact bilaterally Respiratory Common normals: normal respiratory effort and no use of accessory muscles Auscultation: crackles and diminished lung sounds Cardio Common normals: no JVD, regular rate, regular rhythm, S1 normal heart sound and S2 normal heart sound GI Common normals: Normal to inspection, nondistended, normoactive bowel sounds present, soft to palpation, non-tender and no hepatosplenomegaly Extremity General: edema Neuro Common normals: oriented x3, moves all extremities, no focal motor deficits and no sensory deficits noted Psych Common normals: mental status grossly normal and thought process normal Internal Medicine - PN: Obj Da Labs Labs: Laboratory Results - last 24 hr 11/06/23 11/06/23 11/06/23 10:33 12:57 14:52 WBC RBC Hgb Hct MCV MCH MCHC RDW Plt Count MPV Neut % (Auto) Lymph % (Auto) [place] % (Auto) Eos % (Auto) Baso % (Auto) Neut # (Auto) Lymph # (Auto) [place] # (Auto) Eos # (Auto) Baso # (Auto) Abs Immat Gran (auto) Imm/Tot Granulo (auto) PTT (Heparin Absorb) 70.5 H* Sodium Potassium Chloride Carbon Dioxide Anion Gap BUN Creatinine Est GFR ( Amer) Est GFR (Non-Af Amer) BUN/Creatinine Ratio Glucose Calcium Total Bilirubin AST ALT Alkaline Phosphatase Troponin I High Sens 9.1 NT-Pro-B Natriuret Pep 598.0 Total Protein Albumin Globulin Albumin/Globulin Ratio POC Glucose 137 H 11/06/23 11/06/23 11/06/23 18:05 21:16 22:17 WBC RBC Hgb Hct MCV MCH MCHC RDW Plt Count MPV Neut % (Auto) Lymph % (Auto) [place] % (Auto) Eos % (Auto) Baso % (Auto) Neut # (Auto) Lymph # (Auto) [place] # (Auto) Eos # (Auto) Baso # (Auto) Abs Immat Gran (auto) Imm/Tot Granulo (auto) PTT (Heparin Absorb) 58.1 Sodium Potassium Chloride Carbon Dioxide Anion Gap BUN Creatinine Est GFR ( Amer) Est GFR (Non-Af Amer) BUN/Creatinine Ratio Glucose Calcium Total Bilirubin AST ALT Alkaline Phosphatase Troponin I High Sens NT-Pro-B Natriuret Pep Total Protein Albumin Globulin Albumin/Globulin Ratio POC Glucose 194 H 141 H 11/07/23 11/07/23 03:45 07:29 WBC 10.0 RBC 3.29 L Hgb 9.9 L Hct 31.6 L MCV 96.0 MCH 30.1 MCHC 31.3 RDW 14.5 Plt Count 488 H MPV 10.1 Neut % (Auto) 77.5 H Lymph % (Auto) 17.1 L [place] % (Auto) 3.5 Eos % (Auto) 0.1 L Baso % (Auto) 0.3 Neut # (Auto) 7.8 H Lymph # (Auto) 1.7 [place] # (Auto) 0.4 Eos # (Auto) 0.0 Baso # (Auto) 0.0 Abs Immat Gran (auto) 0.15 H Imm/Tot Granulo (auto) 1.5 H PTT (Heparin Absorb) 66.4 Sodium 141 Potassium 3.9 Chloride 105 Carbon Dioxide 27.1 Anion Gap 12.8 BUN 18.0 Creatinine 0.84 Est GFR ( Amer) >60 Est GFR (Non-Af Amer) >60 BUN/Creatinine Ratio 21.4 Glucose 140 H Calcium 8.3 L Total Bilirubin 0.2 AST 22 ALT 52 Alkaline Phosphatase 103 Troponin I High Sens NT-Pro-B Natriuret Pep Total Protein 5.5 L Albumin 2.5 L Globulin 3.0 Albumin/Globulin Ratio 0.8 POC Glucose 139 H
[2023-11-07] MEDS: SPIRONOLACTONE 25 MG TABLET 50 MG PO (11:05)
[2023-11-07 13:09] LABS: Glucometer 115 mg/dL (74-106)
[2023-11-07 16:03] LABS: Glucometer 248 mg/dL (74-106)
[2023-11-07 21:18] LABS: Glucometer 167 mg/dL (74-106)
--- NOTE | 2023-11-07 22:12 | RESP.RT ---
increased to 2 lpm
[2023-11-08] VITALS (16 sets, daily range): BP systolic 103–154; BP diastolic 52–85; PULSE 73–100; RESP 16–20; TEMP 36.6–36.9; O2SAT 85–97
[2023-11-08 04:58] LABS: Basophils Percent Auto 0.2 % (0.2-2.0); Eosinophils Percent Auto 0.5 % (0.9-7.0); Hematocrit 34.3 % (36.0-48.0); Hemoglobin 10.8 g/dL (12.0-16.0); Immature Granulocytes Abs Auto 0.04 10^3/uL (0.00-0.03); Immature Granulocytes Pct Auto 0.5 % (0.0-0.5); Lymphocytes Absolute Auto 1.8 10^3/uL (1.2-3.8); Lymphocytes Percent Auto 21.4 % (20.5-60.0); Mean Corpuscular HGB Conc 31.5 g/dL (29.9-35.2); Mean Corpuscular Hemoglobin 29.9 pg (26.7-34.0); Mean Platelet Volume 10.2 fL (9.5-13.5); Monocytes Absolute Auto 0.1 10^3/uL (0.3-0.8); Monocytes Percent Auto 0.7 % (1.7-12.0); Neutrophils Absolute Auto 6.4 10^3/uL (1.4-6.5); Neutrophils Percent Auto 76.7 % (43.0-75.0); Platelet Count 565 10^3/uL (150-450); Red Blood Count 3.61 10^6/uL (4.20-5.40); Red Cell Distribution Width 14.5 % (11.0-15.0); White Blood Count 8.3 10^3/uL (4.0-11.0)
[2023-11-08 05:11] LABS: Partial Thromboplastin Time 26.1 sec (22.3-36.2)
[2023-11-08 05:57] LABS: Alanine Aminotransferase 56 U/L (14-59); Albumin Globulin Ratio 0.9; Alkaline Phosphatase 116 U/L (46-116); Anion Gap 13.5; Aspartate Amino Transferase 18 U/L (15-37); BUN Creatinine Ratio 21.4; Bilirubin Total 0.4 mg/dL (0.2-1.0); Calcium 8.5 mg/dL (8.5-10.1); Carbon Dioxide 29.3 mmol/L (21.0-32.0); Chloride 101 mmol/L (98-107); Estimated GFR (African America >60 (>=60); Estimated GFR (Non-African Ame 56 (>=60); Globulin 3.2 g/dL; Glucose 123 mg/dL (74-106); Potassium 3.8 mmol/L (3.5-5.1); Sodium 140 mmol/L (136-145); Total Protein 6.2 g/dL (6.4-8.2)
[2023-11-08] MEDS: FUROSEMIDE 40 MG/4 ML VIAL IVP (09:11)
[2023-11-08] MEDS: FAMOTIDINE/PF 20 MG/2 ML VIAL IV (09:11)
[2023-11-08] MEDS: POTASSIUM CHLORIDE 10 MEQ ER TABLET PO (09:12)
[2023-11-08] MEDS: SPIRONOLACTONE 25 MG TABLET 50 MG PO (09:12)
[2023-11-08] MEDS: METOPROLOL TARTRATE 50 MG TABLET PO (09:13)
[2023-11-08] MEDS: LOSARTAN POTASSIUM 50 MG TABLET 100 MG PO (09:13)
[2023-11-08] MEDS: APIXABAN 5 MG TABLET 10 MG PO (09:13)
[2023-11-08] MEDS: ATORVASTATIN CALCIUM 10 MG TABLET PO (09:13)
[2023-11-08] MEDS: CHOLECALCIFEROL (VITAMIN D3) 125 MCG/5,000 UNIT TABLET PO (09:13)
[2023-11-08] MEDS: MULTIVITAMIN TABLET 1 TAB PO (09:13)
[2023-11-08] MEDS: OMEPRAZOLE 20 MG CAPSULE.DR PO (09:23)
--- NOTE | 2023-11-08 10:31 | P.DS_ITS ---
DS: Providers Provider Date of admission: 11/05/23 21:54 Primary care physician: Non-Staff Physician, Consults: 11/06/23 08:00 Consult to Wound Care ONCE Consulting Provider: Carlos Eid Reason for consultation: rash/abrasions to bilat lateral shins. reddened and edematous Attending physician on discharge: Shaikh Aaron Discharging clinician: Shaikh Aaron Anticipated date of discharge: 11/08/23 DS: Diagnosis Discharge Diagnosis (1) Pulmonary embolism and infarction: Assessment and plan: Provoked pulmonary embolism likely secondary to cancer. Stable for discharge on Eliquis. Follow-up with oncology as outpatient (2) Acute on chronic diastolic heart failure: Assessment and plan: New Diagnosis of diastolic dysfunction and heart failure. Patient required IV diuresis while inpatient. She is improved and feeling better from respiratory point of view. Her blood pressure is poorly controlled and will benefit from changing her blood pressure regimen. will also increase her Lasix from 20 mg to 40 mg once daily. (3) Acute respiratory failure with hypoxia: Assessment and plan: Not requiring oxygen at rest. I asked the nurses to do a six minute walk test to make sure she will not need oxygen on exertion. Secondary to pulmonary embolism and acute on chronic diastolic heart failure. Improved significantly from admission (4) Shortness of breath: Assessment and plan: Secondary to PE and acute on chronic diastolic heart failure. Improved. (5) Breast cancer, right: Assessment and plan: Status post mastectomy and axillary lymph node removal. Patient currently going [facility] and immunotherapy Qualifiers: Breast location: unspecified site of breast Estrogen receptor status: unspecified Patient sex: female Qualified Code(s): C50.911 - Malignant neoplasm of unspecified site of right female breast (6) HTN (hypertension): Assessment and plan: Poorly controlled. Will discharge on increased dose of losartan. Added Aldactone. Increase Lasix to 40 mg. Patient will need to follow-up with her PCP for management of her high blood pressure. Qualifiers: Hypertension type: primary hypertension Qualified Code(s): I10 - Essential (primary) hypertension (7) GERD (gastroesophageal reflux disease): Assessment and plan: Continue with Nexium Qualifiers: Esophagitis presence: without esophagitis Qualified Code(s): K21.9 - Gastro-esophageal reflux disease without esophagitis (8) Obesity: Assessment and plan: Patient would benefit from weight loss. Qualifiers: Obesity type: due to excess calories Obesity classification: unspecified obesity classification Serious obesity comorbidity presence: without serious comorbidity Qualified Code(s): E66.09 - Other obesity due to excess calories (9) Hyperlipemia: Assessment and plan: Continue with statin. Qualifiers: Hyperlipidemia type: unspecified Qualified Code(s): E78.5 - Hyperlipidemia, unspecified DS: Summary Hospital Course Hospital Course: 68-year-old female with history of breast cancer, currently undergoing chemotherapy and outpatient CTA chest and she reported shortness of breath to her oncologist. On CTA chest she was noted to have numerous pulmonary emboli involving her right lung. She was admitted through Emergency Room and was started on IV heparin drip. Patient will transition to by mouth Eliquis on 11/07/2023. 2-D echo was ordered to rule out right heart strain and revealed chronic diastolic dysfunction along with evidence of volume overload for which she was started on IV diuresis. Of note, patient was hypoxic during the course of admission requiring oxygen supplementation via nasal cannula has improved with IV diuresis and treatment of her pulmonary embolism. She is not needing oxygen at rest currently but I am waiting for a six minute walk test that will indicate whether she needs it on exertion or not. Patient's blood pressure is poorly controlled and her regimen was adjusted. She will need to follow with her PCP as outpatient. Patient educated on worrisome signs and symptoms that should prompt her to seek urgent medical care. She is stable medically for discharge. Follow-up with PCP in 1-2 weeks and follow-up [facility] oncology in 2-3 weeks. Status at Discharge Functional status at discharge: independent ambulation Overall status at discharge: patient is back to baseline Time Spent with Patient Time attestation: Total time spent providing and/or coordinating discharge services: Time spent: greater than 30 minutes Exam Constitutional Vital Signs, click to edit/add: Last Vital Signs Temp 98.5 F 11/08/23 09:00 Pulse 99 H 11/08/23 09:58 Resp 16 11/08/23 09:00 BP 103/52 11/08/23 09:13 Pulse Ox 92 L 11/08/23 09:00 O2 Del Method Room Air 11/08/23 09:00 O2 Flow Rate 2 11/08/23 05:13 Common normals: no apparent distress, average body habitus and oriented x3 Nutritional appearance: obese HENMT Common normals: normocephalic and head/scalp atraumatic Eye Common normals: PERRL and EOMs intact bilaterally Respiratory Common normals: normal respiratory effort and no use of accessory muscles Auscultation: crackles and diminished lung sounds Cardio Common normals: no JVD, regular rate, regular rhythm, S1 normal heart sound and S2 normal heart sound GI Common normals: Normal to inspection, nondistended, normoactive bowel sounds present, soft to palpation, non-tender and no hepatosplenomegaly Extremity General: edema Neuro Common normals: oriented x3, moves all extremities, no focal motor deficits and no sensory deficits noted Psych Common normals: mental status grossly normal and thought process normal DS: Data Data Completed and Pending Labs on day of discharge: Labs from last 24 hours 11/08/23 11/07/23 11/07/23 04:30 21:17 16:02 WBC 8.3 RBC 3.61 L Hgb 10.8 L Hct 34.3 L MCV 95.0 MCH 29.9 MCHC 31.5 RDW 14.5 Plt Count 565 H MPV 10.2 Neut % (Auto) 76.7 H Lymph % (Auto) 21.4 Stewart % (Auto) 0.7 L Eos % (Auto) 0.5 L Baso % (Auto) 0.2 Neut # (Auto) 6.4 Lymph # (Auto) 1.8 Stewart # (Auto) 0.1 L Eos # (Auto) 0.0 Baso # (Auto) 0.0 Abs Immat Gran (auto) 0.04 H Imm/Tot Granulo (auto) 0.5 APTT 26.1 Sodium 140 Potassium 3.8 Chloride 101 Carbon Dioxide 29.3 Anion Gap 13.5 BUN 21.0 H Creatinine 0.98 Est GFR ( Amer) >60 Est GFR (Non-Af Amer) 56 L BUN/Creatinine Ratio 21.4 Glucose 123 H Calcium 8.5 Total Bilirubin 0.4 AST 18 ALT 56 Alkaline Phosphatase 116 Total Protein 6.2 L Albumin 3.0 L Globulin 3.2 Albumin/Globulin Ratio 0.9 POC Glucose 167 H 248 H 11/07/23 13:05 WBC RBC Hgb Hct MCV MCH MCHC RDW Plt Count MPV Neut % (Auto) Lymph % (Auto) Stewart % (Auto) Eos % (Auto) Baso % (Auto) Neut # (Auto) Lymph # (Auto) Stewart # (Auto) Eos # (Auto) Baso # (Auto) Abs Immat Gran (auto) Imm/Tot Granulo (auto) APTT Sodium Potassium Chloride Carbon Dioxide Anion Gap BUN Creatinine Est GFR ( Amer) Est GFR (Non-Af Amer) BUN/Creatinine Ratio Glucose Calcium Total Bilirubin AST ALT Alkaline Phosphatase Total Protein Albumin Globulin Albumin/Globulin Ratio POC Glucose 115 H Discharge Plan Discharge Disposition: Home, Self-Care Discharge Medications: New spironolactone [Aldactone] 25 mg tablet 25 mg PO DAILY Qty: 30 0RF Eliquis 5 mg tablet 5 mg PO Q12H 30 Days Qty: 72 0RF Rx Instructions: use 2 pills twice a day for 6 days, take 1 pill twice a day for 24 days. Continued docusate sodium [Dulcolax Stool Softener (dss)] 100 mg capsule 100 mg PO DAILY folic acid 1 mg tablet esomeprazole magnesium [Nexium] 20 mg capsule,delayed release(DR/EC) 20 mg PO DAILY metoprolol tartrate 50 mg tablet 50 mg PO BID atorvastatin 10 mg tablet 10 mg PO DAILY multivitamin Tablet 1 tab PO DAILY cholecalciferol (vitamin D3) 125 mcg (5,000 unit) capsule 125 mcg PO DAILY potassium chloride 10 mEq capsule, extended release 10 meq PO DAILY Changed losartan [Cozaar] 50 mg tablet 100 mg PO DAILY Qty: 0 0RF furosemide 20 mg tablet 40 mg PO DAILY Qty: 0 0RF Discontinued celecoxib [Celebrex] 100 mg capsule 100 mg PO DAILY Activity: increase activity as tolerated Diet: advance to your usual diet Forms: Portal Instructions Follow Up Appointments: Follow up with Tristan at Dr. Jenkins's office 11/14/2023 3pm Follow up with Oncology in 2-3 weeks Needs outpatient cardiology follow up for new diagnosis of chronic diastolic HF - will defer to patient's PCP
--- NOTE | 2023-11-08 11:18 | CM.NOTE ---
Rounds made with Dr. Walker. Patient to have a walk test today and depending on that, plan is for pt to be discharged home today with or without O2. Patient is already established with Ef[facility]HAN
[2023-11-08] MEDS: HEPARIN SODIUM (PORCINE) PF LOCK FLUSH 500 UNIT/5 ML SYRINGE INJ (11:46)
--- NOTE | 2023-11-08 12:26 | SWNOTE1 ---
SW checked with nurse and pt does not need home oxygen, she did well with 6 minute walk test, only dropped to 91%. MATHIEU sent dc med rec and CRF to [facility].
--- NOTE | 2023-11-11 14:25 | CM.DCFOLLOWU ---
11/10- 1st attempt no answer
--- NOTE | 2023-11-12 12:45 | CM.DCFOLLOWU ---
Person spoke with: Yue How are you feeling? Still can't breathe and they should not of sent me home without oxygen. Discussed with pt about pulse ox- she has one at home and her oxygen levels decrease to low 80's. Talked with pt about returning to ER to get set-up with oxygen. pt states Not now Im not. How is your pain? No pain Did you understand your discharge instructions? Yes Do you have any questions about your discharge instructions? My medication, cholesterol medication does is incorrect. Discussed with pt to confirm at her PCP appt on Were you given any prescriptions at discharge? Yes Were you able to get your prescriptions filled? Yes Do you understand how to take your medications as ordered? Yes Do you have any questions about your follow up appointment and do you plan to keep your follow up appointment? No its scheduled Is there anything else that you would like to discuss? No Questions/Comments/Concerns/Other:
--- NOTE | 2023-11-12 14:51 | PC.NURSE ---
11/12/2023 1350 Contacted Yue with concerns from case management about her having a low SpO2 at home. Yue stated that she felt she was discharged to soon. I encouraged her to go to the emergency room for her SpO2 in the 70's where we could assist with getting her home oxygen. The risks of low SpO2 were also reviewed. She stated that she did not want to go and would talk to her home health provider tomorrow.
== END 2023-11-08 11:49 | disposition home health service (06) | DRG 175 ==
LOC: ER 21:37 → ICU 22:07 → MS 11-07 14:20
PROVIDERS: Nurse Practitioner Acute Care; Admitting Provider Internal Medicine; Emergency Provider Internal Medicine; Visit Provider Internal Medicine
DX: I26.94 Multiple subsegmental thrombotic pulmonary emboli without acute cor pulmonale (principal); I50.33 Acute on chronic diastolic (congestive) heart failure; J96.01 Acute respiratory failure with hypoxia; Z68.43 Body mass index [BMI] 50.0-59.9, adult; I11.0 Hypertensive heart disease with heart failure; E78.5 Hyperlipidemia, unspecified; R21 Rash and other nonspecific skin eruption; C50.911 Malignant neoplasm of unspecified site of right female breast; I97.2 Postmastectomy lymphedema syndrome; M06.9 Rheumatoid arthritis, unspecified; E66.09 Other obesity due to excess calories; K21.9 Gastro-esophageal reflux disease without esophagitis; J44.9 Chronic obstructive pulmonary disease, unspecified; S80.812A Abrasion, left lower leg, initial encounter; S80.811A Abrasion, right lower leg, initial encounter; X58.XXXA Exposure to other specified factors, initial encounter; Z96.652 Presence of left artificial knee joint; Z96.651 Presence of right artificial knee joint; Z82.3 Family history of stroke; Z82.49 Family history of ischemic heart disease and other diseases of the circulatory system; Z87.442 Personal history of urinary calculi; Z90.12 Acquired absence of left breast and nipple; Z79.899 Other long term (current) drug therapy; Z88.5 Allergy status to narcotic agent; Z88.2 Allergy status to sulfonamides; Z91.048 Other nonmedicinal substance allergy status; Z79.1 Long term (current) use of non-steroidal anti-inflammatories (NSAID); Z83.2 Family history of diseases of the blood and blood-forming organs and certain disorders involving the immune mechanism
CPT/HCPCS: 36415; 36591; 36592; 71045; 80048; 80053; 81001; 82800; 82948; 83880; 84484; 85007; 85025; 85027; 85610; 85730; 93005; 93306; 93970; 94761; 96365; 96366; 96375; 96376; 99285

== ENCOUNTER 2023-11-16 04:40 | Inpatient (IN) | payer MEDICARE, OTHER, SELFPAY ==
[2023-11-16] VITALS (32 sets, daily range): BP systolic 121–185; BP diastolic 61–83; PULSE 77–110; RESP 12–24; TEMP 36.8–39.4; O2SAT 93–99; BMI 48.5; BMI 49.0
--- OUTSIDE RECORDS SUMMARY | 2023-11-16 04:46 | XMS_ITS | CCD ---
Author Organization [facility] Care Team Providers Care Supervisor Title Name Role Phone DONTE MOFFETT Referring Unavailable DONTE MOFFETT Admitting Unavailable DONTE MOFFETT Attending Unavailable ADY ARAGON Consulting Unavailable DONTE MOFFETT Referring Unavailable DONTE MOFFETT Referring Unavailable Rita Amanda Primary Care Provider Gilma DO, Janet Flaquita Unavailable Debbie Ramirez Unavailable Rita Amanda Primary Care Provider Gilma DO, Janet Flaquita Unavailable HENRIK Perez Attending Provider LENA Benson Referring Provider [phone] Gilma, DO Janet G Primary Care Provider Dayanna Schumacher Unavailable Gilma, DO Janet G Primary Care Provider DO Kaylene Lilly Attending Provider DEEPA Schumacher Attending Provider Rita Amanda Primary Care Provider Gilma DO, Janet Flaquita Unavailable NO FAMILY, PHYSICIAN Primary Care Provider Unava ilable Gilma, DO Janet G Primary Care Provider DO Nikko Astorga Attending Provider Karen Parrish Unavailable GABBY GREY Consulting Unavailable EMMANUEL ., DR GERBER Admitting Unavailable MIS, DR PENALOZA Primary Care Unavailable EMMANUEL ., DR GERBER Attending Unavailable LUIS ., SHANKAR Consulting Unavailable LOUIE, TAWANA Consulting Unavailable RAM, YARI Consulting Unavailable SOLARES, RAKESH Consulting Unavailable SAID, CHRISTINE Consulting Unavailable Padma, Cristina Consulting Unavailable CUELLAR ., DR DONTE Patel Consulting [facility] DR PENALOZA Primary Care Unavailable CUELLAR ., DR DONTE Patel Admitting Unavailable CUELLAR ., DR DONTE Patel Attending Unavailable [facility], DR RICCO Anthony Consulting Unavailkathie SON, DONALDO Consulting Unavailable LAWRENCE LOPEZ Consulting Unavailable Janet Dillard DO Unavailable DO Janet Dillard Primary Care Provider DO Nikko Astorga Attending Provider [phone] Janet Dillard Primary Care Unavailable Kaylene Lilly Admitting Unavailable Kaylene Lilly Attending Unavailable Dayanna Schumacher Admitting Unavailable Dayanna Schumacher Attending Unavailable NO FAMILY, PHYSICIAN Primary Care Unavailable Nikko Astorga Admitting Unavailable Nikko Astorga Attending Unavailable Janet Dillard Primary Care Unavailable Nikko Astorga Admitting Unavailable Nikko Astorga Attending Unavailable Janet Dillard Primary Care Unavailable Sunny Jenkins MD Primary Care Provider [phone] BYRON MOORE Referring Unavailable SUNNY JENKINS Primary Care Unavailable GABBY URBINA Attending Unavailable SUNNY JENKINS Primary Care Unavailable KISHAN ASIF Referring Unavailable Sunny Jenkins MD Primary Care Provider Yvonne Baumann RN Unavailable [phone] Mitch Garcia MD Unavailable Catyh Templeton PA-C Unavailable [phone] Deepika Krueger Unavailable Unavailable PROVIDER, UNKNOWN Admitting Unavailable SUNNY JENKINS Primary Care Unavailable PROVIDER, UNKNOWN Attending Unavailable RITA AMANDA Primary Care UnavailNELL Bowman Referring Unavailable YOAN RIVAS Attending Unavailable LEO GERARD Attending Unavailable VIRGINIA, MUHAMID M Referring Unavailable VIRGINIA, MUHAMID M Primary Care Unavailable Monie RD, Nona Unavailable [phone] BRIANNA RENNER Referring Unavailable [place]IRGINIA, MUHAMID M Primary Care Unavailable KARAMLOU, MITCH Referring Unavailable [place]IRGINIA, MUHAMID M Primary Care Unavailable KARAMLOU, MITCH Referring Unavailable [place], MUHAMID M Primary Care Unavailable [place]IR[place]IA, MUHAMID M Primary Care Unavailable TREASURE, RITA CHA Primary Care Unavailabl e MICAH SON Attending Unavailable TREASURE, RITA CHA Primary Care Unavailabl e VIRGINIA, MUHAMID M Primary Care Unavailable GABBY URBINA Attending Unavailable ALHILLI, HEATHER Attending Unavailable VIRGINIA, MUHAMID M Primary Care Unavailable [place]IRGINIA, MUHAMID M Primary Care Unavailable IBIS KARUNAKARANGEL Referring Unava ilable VIRGINIA, MUHAMID M Primary Care Unavailable DARON, MITCH Attending Unavailable [place], MUHAMID M Primary Care Unavailable TREASURE, RITA CHA Primary Care Unavailabl e ALHILLI, HEATHER Attending Unavailable ALHILLI, HEATHER Admitting Unavailable ALHILLI, HEATHER Referring Unavailable TREASURE, RITA CHA Primary Care Unavailabl e PRINCESS BEGUM JR Referring Unavailable TREASURE, RITA CHA Primary Care Unavailabl e JOHN DC Referring Unavailable TREASURE, RITA CHA Primary Care Unavailabl e TREASURE, RITA CHA Primary Care Unavailabl e MENDOZA YANG Attending Unavailable TREASURE, RITA CHA Primary Care Unavailabl e ALHILLI, HEATHER Referring Unavailable TREASURE, RITA CHA Primary Care Unavailabl e ALHILLI, HEATHER Referring Unavailable TREASURE, RITA CHA Primary Care Unavailabl e ALHILLI, HEATHER Referring Unavailable TREASURE, RITA CHA Primary Care Unavailabl e PRINCESS BEGUM JR Referring Unavailable VIRGINIA, MUHAMID M Primary Care Unavailable MENDOZA YANG Attending Unavailable [place], MUHAMID M Primary Care Unavailable RADHA GARCIARA Attending Unavailable MENDOZA YANG Referring Unavailable [place], MUHAMID M Primary Care Unavailable TREASURE, RTIA CHA Primary Care Unavailabl e MENDOZA YANG Attending Unavailable RITA AMANDA Primary Care Unavailabl e EV CAI Attending Unavailable TREASURE, RITA CHA Primary Care Unavailabl e JOHN DC Referring Unavailable JOHN DC Attending Unavailable VIRGINIA, MUHAMID M Primary Care Unavailable YOKASTA, CATHY M Referring Unavailable NONA CANNON Attending Unavailabl e VIRGINIA, MUHAMID M Primary Care Unavailable VIRGINIA, MUHAMID M Primary Care Unavailable MITCH GARCIA Referring Unavailable [place]IRGINIA, MUHAMID M Primary Care Unavailable DANTE REHMAN LAW Attending Unavailable ALHILLI, HEATHER Referring Unavailable [place]IR[place]IA, MUHAMID M Primary Care Unavailable TREASURERITA SWANN Primary Care Unavailabl e ALHILLI, HEATHER Attending Unavailable ALHILLI, HEATHER Admitting Unavailable TREASURERITA SWANN Primary Care Unavailabl e ALHILLI, HEATHER Referring Unavailable TREASURERITA SWANN Primary Care Unavailabl e ALHILLI, HEATHER Attending Unavailable TREASURERITA SWANN CHA Primary Care Unavailabl e ALHILLI, HEATHER Referring Unavailable DANTE REHMAN LAW Attending Unavailable TREASURE, RITA CHA Primary Care Unavailabl e ALHILLI, HEATHER Referring Unavailable EBONI REHMANAG LAW Attending Unavailable VIRGINIA, MUHAMID M Primary Care Unavailable GABBY URBINA Attending Unavailable [place]IRGINIA, MUHAMID M Primary Care Unavailable BRIANNA RENNER Attending Unavailable VIRGINIA, MUHAMID M Primary Care Unavailable Unavailable Unavailable Unavailable Allergies Allergy Classification Reported Allergen(s) Allergy Type Date of Onset Reaction(s) Facility (20 sources) fentaNYL; Translations: [FENTANYL] Drug Allergy 04-01-20 18 Other: See Comments, Intolerance [facility] Repository (1 source) Penicillins; Translations: [PENICILLINS] Propensity to adverse reactions to drug (disorder) 03-08-20 07 [facility] Repository (20 sources) Sulfonamides (Antibiotic); Translations: [SULFA (SULFONAMIDE ANTIBIOTICS)] Propensity to adverse reactions to drug (disorder) 03-08-20 07 Unknown, Rash [facility] Repository (3 sources) OTHER; Translations: [OTHER] Propensity to adverse reactions (disorder) 05-06-20 07 [facility] Other [place] [facility] (20 sources) ADHESIVE BANDAGES [Other] Propensity to adverse reactions 05-06-20 [facility] Work Phone: (4 sources) Sulfacetamide Drug Allergy rash [facility] Other (1 source) Adhesive bandage Drug allergy (disorder) 12-04-19 [facility] Repository (1 source) Sulfonamides (Antibiotic) Drug allergy (disorder) 12-04-19 [facility] Repository (11 sources) Adhesive agent; Translations: [adhesive] Allergy to substance 02-29-20 Other (See Comments) [facility] (20 sources) Adhesive Tape-Silicones; Translations: [ADHESIVE TAPE-SILICONES] Drug Intolerance 07-29-20 [facility] Work Phone: Medications Current Medications Medication Drug Class(es) Dates Sig (Normalized) Sig (Original) acetaminophen 500 mg oral tablet (9 sources) Start: 07-16-2023 End: 09-01-2023 take 2 tablets by mouth every six hours as needed for pain acetaminophen (TYLENOL EXTRA STRENGTH) 500 mg tablet Take 2 tablets (1,000 mg total) by mouth every 6 (six) hours as needed for pain. 100 tablet 1 07/16/2023 Active Comment on above: Take 2 tablets by mo uth every 6 hours for 3 days, THEN 2 tablets every 6 hours as needed for pain. Do not take more than 4000mg in 24 hrs (includes Tylenol/Acetaminophen in other medications e.g. [place]). [id number] 200 actuat albuterol 0.09 mg/actuat metered dose inhaler (4 sources) beta2-Adrenergic Agonist Start: 12-03-2022 take 2 puff(s) by inhalation every four to six hours as needed Albuterol Sulfate HFA 108 (90 Base) MCG/ACT 2 puffs as needed Inhalation every 4-6 hours for 14 days Nov, Active Start: 06-17-2022 take 2 puff(s) by in halation every four hours as needed Albuterol Sulfate HFA 108 (90 Base) MCG/ACT 2 puffs as needed Inhalation every 4 hrs May, Active Start: 04-25-2019 Albuterol Sulf ate (2.5 MG/3ML) 0.083% 1 dose as directed Inhalation every 6 hrs Mar, Active apixaban 5 mg oral tablet (8 sources) Factor Xa Inhibitor Start: 11-11-2023 End: 02-09-2024 take 1 tablet by mouth twice daily apixaban (ELIQUIS) 5 mg tab(s) Take 1 tablet by mouth two times a day. 60 tablet 2 11/11/2023 02/09/2024 Active Start: 11-05-2023 take 2 tablets by mo uth twice daily, then take 1 tablet by mouth twice daily apixaban (ELIQUIS DVT-PE TREAT 30D START) 5 mg (74 tabs) tablets,dose pack tablet Indications: 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 (CMS-HCC) Take 2 tablets by mouth twice daily for 7 days, then take 1 tablet twice daily 74 tablet 0 11/05/2023 Active Start: 11-05-2023 End: 12-05-2023 take 2 tablets by mouth twice daily, then take 1 tablet by mouth twice daily apixaban (ELIQUIS DVT-PE TREAT D START) 5 mg (74 tabs) Take 2 tablets (10 mg) by mouth twice daily for 7 days. Then take 1 tablet (5 mg) by mouth twice daily for 23 days 74 tablet 0 11/05/2023 12/05/2023 Active Comment on above: Take 2 tablets (10 m g) by mouth twice daily for 7 days. Then take 1 tablet (5 mg) by mouth twice daily for 23 days Take 1 tablet by eamon two times a day. aspirin 81 mg delayed release oral tablet (1 source) Platelet Aggregation Inhibitor, Nonsteroidal Anti-inflammatory Drug Start: 03-31-20 End: 12-09-19 take 1 tablet by mouth twice daily aspirin, enteric coated (ECOTRIN LOW STRENGTH) 81 mg EC tablet Indications: Arthritis of both knees Take 1 tablet by mouth twice daily for 28 days. 56 tablet 0 03/31/2018 12/08/2021 Discontinued (Course of therapy completed) Comment on above: Take 1 tablet by eamon th twice daily for 28 days. atorvastatin 40 mg oral tablet (20 sources) HMG-CoA Reductase Inhibitor Start: 05-14-20 End: 11-01-19 24 take 1 tablet by mouth in the morning atorvastatin (LIPITOR) 40 mg tablet Indications: ASCVD (arteriosclerotic cardiovascular disease) Take 1 tablet (40 mg total) by mouth in the morning. 90 tablet 2 11/01/2023 Active Start: 02-28-2023 take 10 mg by mouth at bedtime Atorvastatin Active 10 MG PO Bedtime February 28, 2023 12:00am Start: 12-08-2021 End: 06-14-2022 take 1 tablet by mouth once daily atorvastatin (LIPITOR) 20 mg tablet Take 1 tablet by mouth once daily. 30 tablet 2 03/16/2022 Active Comment on above: Take 20 mg by mouth once daily. Take 1 tablet by eamon th once daily. benzonatate 100 mg oral capsule (2 sources) Non-narcotic Antitussive Start: take 1 capsule by mouth every eight hours Tessalon Perles 100 MG 1 capsule as needed Orally Three times a day for 7 days Nov, Active cefdinir 300 mg oral capsule (1 source) Cephalosporin Antibacterial Start: End: take 1 capsule by mouth in the morning, then take 1 capsule by mouth at bedtime cefDINIR (OMNICEF) 300 mg capsule Take 1 capsule (300 mg total) by mouth in the morning and 1 capsule (300 mg total) before bedtime. Do all this for 7 days. 14 capsule 0 10/09/2023 10/16/2023 Active cetirizine hydrochloride 10 mg oral tablet (12 sources) Histamine-1 Receptor Antagonist Start: take 1 tablet by mouth in the morning cetirizine (ZyrTEC) 10 mg tablet Take 1 tablet (10 mg total) by mouth in the morning. 30 tablet 1 10/09/2023 Active Comment on above: TAKE 1 TABLET (10 MG TOTAL) BY MOUTH IN THE MORNING cholecalciferol 0.125 mg oral tablet (8 sources) Vitamin D Start: take 1 tablet by mouth once daily Cholecalciferol (Vitamin D3) (Vitamin D3) 125 mcg (5,000 unit) Tablet Active 125 MCG PO Daily February 28, 2023 12:00am take 1 tablet by mouth in the mo rning cholecalciferol, vitamin D3, 5,000 units tablet Take 1 tablet (5,000 Units total) by mouth in the morning. 0 Active ciprofloxacin 500 mg oral tablet (6 sources) Quinolone Antimicrobial Start: 11-05-2023 End: 11-12-2023 take 1 tablet by mouth twice daily ciprofloxacin HCl (CIPRO) 500 mg tablet Take 1 tablet by mouth two times a day for 7 days. 14 tablet 0 11/05/2023 11/12/2023 Active Comment on above: Take 1 tablet by eamon two times a day for 7 days. dexamethasone 4 mg oral tablet (11 sources) Corticosteroid Start: 10-22-2023 End: 11-07-2023 dexAMETHasone (DECADRON) 4 mg tablet Take 1 tablet by mouth two times a day with meals for 2 days. Day 1 and 2 after chemo only 4 tablet 3 10/22/2023 11/07/2023 Active Start: 12-07-2022 DEXAMETHASONE Nov, 10 mg Comment on above: Take 1 tablet by eamon two times a day with meals for 2 days. Day 1 and 2 after chemo only dextromethorphan hydrobromide 1.5 mg/ml / pyrilamine maleate 1.5 mg/ml oral solution (2 sources) Uncompetitive A-qlisvh-V-aspartate Receptor Antagonist, Sigma-1 Agonist Start: 06-17-2022 Center DM 7.5-7.5 MG/5ML 10 ml Orally every 6-8 hours as needed for 8 days May, Active Start: 04-25-2019 Center DM 7.5- 7.5 MG/5ML 10 ml Orally every 6-8 hours as needed for 8 days Mar, Active doxycycline hyclate 100 mg oral tablet (2 sources) Tetracycline-class Drug Start: 12-07-2022 take 1 tablet by mouth every twelve hours Doxycycline Hyclate 100 MG 1 tablet Orally Twice a day for 10 day(s) Nov, Active Start: 04-25-2019 take 1 capsule by mo [facility] every twelve hours Doxycycline Monohydrate 100 MG 1 capsule Orally every 12 hrs for 10 days Mar, Active esomeprazole 20 mg delayed release oral capsule (20 sources) Proton Pump Inhibitor Start: 02-28-2023 take 1 capsule by mouth at bedtime Esomeprazole Magnesium (Nexium) 20 mg Capsule,Delayed Release(Dr/Ec) Active 20 MG PO Bedtime February 28, 2023 12:00am take 20 mg by mouth once daily e someprazole magnesium (NEXIUM ORAL) Take 20 mg by mouth once daily. 0 Active NexIUM Active Comment on above: Take 20 mg by mouth once daily. fluticasone propionate 0.05 mg/actuat metered dose nasal spray (8 sources) Corticosteroid Start: 08-12-20 End: 10-09-19 take 1 spray(s) nasal route in the morning fluticasone propionate (FLONASE) 50 mcg/actuation nasal spray SPRAY 1 SPRAY INTO EACH NOSTRIL IN THE MORNING 24 mL 1 10/09/2023 Active folic acid 1 mg oral tablet (20 sources) Start: 06-05-20 take 1 tablet by mouth once daily in the morning folic acid (FOLVITE) 1 mg tablet Take 1 tablet (1 mg total) by mouth in the morning. Except the days of taking methotrexate. 90 tablet 1 06/05/2023 Active Comment on above: Take 1 mg by mouth o nce daily. furosemide 20 mg oral tablet (20 sources) Loop Diuretic Start: 11-13-19 take 2 tablets by mouth once daily furosemide (LASIX) 20 mg tablet Take 2 tablets (40 mg total) by mouth daily. 90 tablet 3 11/13/2023 Active Start: 02-28-2023 End: 11-11-2023 take 20 mg by mouth once daily Furosemide Active 20 MG PO Daily February 28, 2023 12:00am Start: 03-13-2018 take 1 tablet by eamon th once daily furosemide (LASIX) 40 mg tablet Take 40 mg by mouth once daily. 0 03/13/2018 Active Comment on above: Take 40 mg by mouth once daily. 80 mg every other day. Take 40 mg by mouth once daily. letrozole 2.5 mg oral tablet (14 sources) Aromatase Inhibitor Start: 3 End: 4 take 1 tablet by mouth once daily letrozole (FEMARA) 2.5 mg chemo tablet Take 1 tablet by mouth daily 90 tablet 3 06/28/2023 06/22/2024 Active Comment on above: Take 1 tablet by eamon th once daily. methotrexate 2.5 mg oral tablet (20 sources) Folate Analog Metabolic Inhibitor Start: 4 methotrexate 2.5 mg chemo tablet TAKE 6 TABLETS ONCE A WEEK. 6 tablet 0 10/08/2023 Active Start: 07-22-2023 methotrexate 2 .5 mg tablet Take 15 mg by mouth every Saturday. 0 07/22/2023 Active Start: 07-22-2023 take 6 tablets by mo uth every week methotrexate 2.5 mg chemo tablet TAKE 6 TABLETS BY MOUTH ONCE WEEKLY 72 tablet 1 07/22/2023 Active Start: 07-22-2023 take 1 tablet by eamon th six times weekly methotrexate 2.5 mg tablet Take 2.5 mg by mouth six times a week. 0 07/22/2023 Active Comment on above: Take 2.5 mg by mouth six times a week. Take 15 mg by mouth every Saturday. methylPREDNISolone 4 mg oral tablet (13 sources) Corticosteroid Start: 06-17-20 methylPREDNISolone 4 MG as directed Orally Once a day for 6 days May, Active Start: 03-19-2022 methylPREDNISo lone (MEDROL DOSE-PACK) 4 mg Dose-Pack Indications: Cervical disc disorder with radiculopathy As Instructed per package 1 Package 0 03/19/2022 Active Start: 04-25-2019 Medrol (Stewart) 4 MG half of daily dose in the morning with food and the rest at night with food Orally Mar, Active Comment on above: As Instructed per olamide hahn metoprolol tartrate 50 mg oral tablet (20 sources) beta-Adrenergic Rajan Start: 02-28-2023 take 50 mg by mouth twice daily Metoprolol Tartrate Active 50 MG PO Twice daily February 28, 2023 12:00am Start: 06-01-2008 METOPROLOL 100 MG TAB Take 50 mg by mouth two times a day. 0 0 06/01/2008 Active Start: 06-01-2008 METOPROLOL 100 MG TAB Take one(1) tablet daily. 0 0 06/01/2008 Active take 0.5 tablet by m outh twice daily at mealtime Metoprolol Tartrate 100 MG 1/2 tablet with food Orally Twice a day Active Metoprolol Tartr ate Active Comment on above: Take one(1) tablet d aily. Take 50 mg by mouth two times a day. Multivitamin Adults - (4 sources) Multivitamin Otto lts - Orally Active Multivitamin preparation (1 source) Start: 02-29-20 take 1 tablet by mouth once daily Multivitamin Active 1 TAB PO Daily February 28, 2023 12:00am Nebulizer Machine & Supplies (1 source) Start: 04-25-20 Nebulizer Machine & Supplies As directed Mar, Active nystatin 100 unt/mg / triamcinolone acetonide 0.001 mg/mg topical ointment (7 sources) Polyene Antifungal, Corticosteroid Start: 05-14-20 nystatin-triamcinolo ne (MYCOLOG II) ointment Indications: Jessica infection Apply 1 Application topically in the morning and 1 Application before bedtime. 30 g 0 05/14/2023 Active pantoprazole 20 mg delayed release oral tablet (1 source) Proton Pump Inhibitor Start: 03-31-20 18 End: 12-09-19 take 1 tablet by mouth once daily pantoprazole DR (PROTONIX) 20 mg tablet Indications: Arthritis of both knees Take 1 tablet by mouth once daily for 14 days. 14 tablet 0 03/31/2018 12/08/2021 Discontinued (Course of therapy completed) Comment on above: Take 1 tablet by eamon th once daily for 14 days. perflutren lipid microspheres 1.3 mL in NaCl (PF) 0.9% 10 mL injection (DEFINITY) (16 sources) Start: 12-09-19 End: 03-09-20 perflutren lipid microspheres 1.3 mL in NaCl (PF) 0.9% 10 mL injection (DEFINITY) polyethylene glycol 3350 [id number] mg / potassium chloride 2970 mg / sodium bicarbonate 6740 mg / sodium chloride 5860 mg / sodium sulfate 62167 mg powder for oral solution (1 source) Osmotic Laxative Start: 09-19-19 End: 09-19-19 peg 3350-Electrolytes (GOLYTELY) 236-22.74-6.74 -5.86 gram suspension Indications: Screening for colon cancer Take 4,000 mL by mouth one time only for 1 dose. Refer to printed prep instructions from your provider. 4000 mL 0 09/19/2022 09/19/2022 Active Comment on above: Take 4,000 mL by eamon th one time only for 1 dose. Refer to printed prep instructions from your provider. potassium chloride 10 meq extended release oral tablet (20 sources) Start: 02-29-20 take 10 mEq by mouth once daily Potassium Chloride Active 10 MEQ PO Daily February 28, 2023 12:00am take 1 tablet by mouth [facility] chloride (K-DUR,KLOR-CON) 10 MEQ CR tablet Take 1 tablet (10 mEq total) by mouth in the morning and 1 tablet (10 mEq total) before bedtime. 0 Active take 1 tablet by mouth twice gayathri ly potassium chloride (K-TAB) 10 mEq tablet Take 10 mEq by mouth twice daily. 0 Active take 1 capsule by [facility] every twenty-four hours Potassium Chloride ER 10 MEQ 1 tablet wi th food Orally Once a day for 90 Active Comment on above: Take 10 mEq by mouth twice daily. Take 10 mEq by mouth once daily. 125 ml sodium chloride 9 mg/ml prefilled syringe (16 sources) Start: 12-08-2021 End: 03-09-2023 sodium chloride 0.9 % (flush) 10 mL (BD POSIFLUSH) triamcinolone acetonide 5 mg/ml topical cream (18 sources) Corticosteroid Start: 05-14-2023 triamcinolone (KENALOG) 0.5 % cream Indications: Contact dermatitis, unspecified contact dermatitis type, unspecified trigger Apply 1 Application topically in the morning and 1 Application before bedtime. 30 g 0 05/14/2023 Active Start: 09-06-2022 End: 09-06-2022 triamcinolone acetonide 40 m g injection (KeNALog 40) Start: 12-19-2021 End: 12-19-2021 triamcinolone acetonide 40 m g injection (KeNALog 40) Start: 12-31-2017 Kenalog -40 mg December, 10 mg Start: 03-20-2015 KENALOG - 10 m g Feb, 40 mg Vitamin D3 125 MCG (5000 UT) (3 sources) take 1 tablet by [facility] once daily Vitamin D3 125 MCG (5000 UT) 1 tablet Orally Once a day Active Vitamin D3 26585 UNIT (1 source) Vitamin D3 22401 UNIT 1 tablet Orally Active Completed/Discontinued Medications Medication Drug Class(es) Dates Sig (Normalized) Sig (Original) cefuroxime 500 mg oral tablet (2 sources) Cephalosporin Antibacterial Start: 08-12-2022 take 1 tablet by mouth every twelve hours Cefuroxime Axetil 500 MG 1 tablet Orally every 12 hrs for 7 days Jul, Not-Taking iv contrast (will be provided with radiology test) (4 sources) Start: 11-05-2023 End: 11-06-2023 iv contrast (will be provided with radiology test) CT Chest PE -Inject, intravenously, once for 1 dose.No IV access, insert saline lock prior to the beginning of sedation, infusion, injection of imaging exam. Discontinue saline lock post exam. If Pt. has a central line or IVAD, may access for administration according to line specific nursing protocol. Once exam is complete flush line and de-access according to line specific nursing protocol in the CT contrast administration guidelines link. 1 Each 0 11/05/2023 11/06/2023 Start: 11-05-2023 End: 11-06-2023 iv contrast (will be provide d with radiology test) CT Chest PE -Inject, intravenously, once for 1 dose.No IV access, insert saline lock prior to the beginning of sedation, infusion, injection of imaging exam. Discontinue saline lock post exam. If Pt. has a central line or IVAD, may access for administration according to line specific nursing protocol. Once exam is complete flush line and de-access according to line specific nursing protocol in the CT contrast administration guidelines link. 1 Each 0 11/05/2023 11/06/2023 Active Start: 07-17-2023 End: 07-17-2023 iv contrast (will be provide d with radiology test) Indications: Malignant neoplasm of left female breast, unspecified estrogen receptor status, unspecified site of breast (HCC) MRI Breast CATY Inject, intravenously, once for 1 dose. No IV access, insert saline lock prior to the beginning of sedation, infusion, injection of imaging exam. Discontinue saline lock post exam. If Pt has a central line or IVAD, may access for administration according to line specific nursing protocol. Once exam is complete flush line and de-access according to line specific nursing protocol in the MR contrast administration guidelines link 1 Each 0 07/17/2023 07/17/2023 Discontinued Comment on above: MRI Breast CATY Injec t, intravenously, once for 1 dose. No IV access, insert saline lock prior to the beginning of sedation, infusion, injection of imaging exam. Discontinue saline lock post exam. If Pt has a central line or IVAD, may access for administration according to line specific nursing protocol. Once exam is complete flush line and de-access according to line specific nursing protocol in the MR contrast administration guidelines link CT Chest PE -Inject, intravenously, once for 1 dose.No IV access, insert saline lock prior to the beginning of sedation, infusion, injection of imaging exam. Discontinue saline lock post exam. If Pt. has a central line or IVAD, may access for administration according to line specific nursing protocol. Once exam is complete flush line and de-access according to line specific nursing protocol in the CT contrast administration guidelines link. 10 ml lidocaine hydrochloride 10 mg/ml injection (2 sources) Antiarrhythmic, Amide Local Anesthetic Start: 09-06-2022 End: 09-06-2022 lidocaine (PF) 10 mg/mL (1 %) 4 mL injection (XYLOCAINE) Start: 12-19-2021 End: 12-19-2021 lidocaine (PF) 10 mg/mL (1 % ) 4 mL injection (XYLOCAINE) losartan potassium 50 mg oral tablet (20 sources) Angiotensin 2 Receptor Rajan Start: 08-24-2021 take 1 tablet by mouth once daily losartan (COZAAR) 50 mg tablet Take 50 mg by mouth once daily. 0 08/24/2021 Active Comment on above: Take 50 mg by mouth once daily. MULTIVITAMIN ORAL (20 sources) take 1 dose by mouth once daily MULTIVITAMIN ORAL Take 1 Dose by mouth once daily. 0 Active MULTIVITAMIN ORA L Take by mouth. 0 Suspended MULTIVITAMIN ORA L Take by mouth. 0 Active Comment on above: Take by mouth. Take 1 Dose by mouth once daily. naproxen 500 mg oral tablet (20 sources) Nonsteroidal Anti-inflammatory Drug Start: 2 take 1 tablet by mouth twice daily as needed naproxen (NAPROSYN) 500 mg tablet Indications: Cervical disc disorder with radiculopathy Take 1 tablet by mouth twice daily as needed. Take with food. 60 tablet 1 03/19/2022 Active Comment on above: Take 1 tablet by eamon th twice daily as needed. Take with food. ondansetron 8 mg oral tablet (20 sources) Serotonin-3 Receptor Antagonist Start: 4 take 1 tablet by mouth every eight hours as needed ondansetron (ZOFRAN) 8 mg tablet Take 1 tablet by mouth every 8 hours as needed for nausea/vomiting. 90 tablet 2 09/23/2023 Active Start: 07-30-2023 take 1 tablet by eamno th every eight hours as needed ondansetron (ZOFRAN) 4 mg tablet Take 1 tablet by mouth every 8 hours as needed for nausea/vomiting. 6 tablet 0 07/30/2023 Active Comment on above: Take 1 tablet by eamon th every 8 hours as needed for nausea/vomiting. oxyCODONE hydrochloride 5 mg oral tablet (2 sources) Opioid Agonist Start: 023 End: take 1 tablet by mouth every six hours as needed for pain oxyCODONE IR (ROXICODONE) 5 mg immediate release tablet Indications: Invasive lobular carcinoma of breast in female (HCC) Take 1 tablet by mouth every 6 hours as needed for pain for up to 7 days. 10 tablet 0 07/30/2023 08/06/2023 Comment on above: Take 1 tablet by eamon th every 6 hours as needed for pain for up to 7 days. phenazopyridine hydrochloride 200 mg oral tablet (2 sources) Start: take 1 tablet by mouth every eight hours Pyridium 200 MG 1 tablet after meals Orally Three times a day for 2 day(s) Jul, Not-Taking predniSONE 20 mg oral tablet (20 sources) Start: End: take 3 tablets by mouth once daily, then take 2 tablets by mouth once daily, then take 1 tablet by mouth once daily, then take 0.5 tablet by mouth once daily predniSONE (DELTASONE) 20 mg tablet Take 3 tablets by mouth once daily for 4 days, THEN 2 tablets once daily for 4 days, THEN 1 tablet once daily for 4 days, THEN 0.5 tablets once daily for 4 days. 26 tablet 0 10/07/2023 10/22/2023 Discontinued (Course of therapy completed) Start: 06-05-2023 predniSONE (DE LTASONE) 10 mg tablet 30 mg daily for 5 days, 20 mg daily for 5 days, 15 mg daily for 5 days, 10 mg daily for 5 days, 5 mg daily for 5 days 40 tablet 0 06/05/2023 Active Start: 12-03-2022 take 1 tablet by eamon th every twelve hours prednisone 20 MG 1 tablet Orally BID for 5 days Nov, Active Start: 09-26-2018 End: 03-19-2022 predniSONE (DELTASONE) 10 mg tablet Comment on above: Take 3 tablets by mo [facility] once daily for 4 days, THEN 2 tablets once daily for 4 days, THEN 1 tablet once daily for 4 days, THEN 0.5 tablets once daily for 4 days. prochlorperazine 10 mg oral tablet (20 sources) Phenothiazine Start: 024 take 1 tablet by mouth every six hours as needed prochlorperazine (COMPAZINE) 10 mg tablet Take 1 tablet by mouth every 6 hours as needed. 100 tablet 2 09/23/2023 Active Comment on above: Take 1 tablet by [facility] every 6 hours as needed. Problems Active Problems Problem Classification Problem Date Documented Date Episodic/Chronic Asthma (1 source) Unspecified asthma, uncomplicated; Translations: [UNSPECIFIED ASTHMA UNCOMPLICATED] Onset: 12-13-2022 Chronic Cancer of breast (20 sources) Malignant neoplasm of female breast; Translations: [Malignant neoplasm of unspecified site of left female breast] Onset: 06-28-2023 07-17-2023 Chronic Chronic obstructive pulmonary disease and bronchiectasis (20 sources) Chronic bronchitis; Translations: [Unspecified chronic bronchitis] Onset: 06-01-2020 Resolved: 04-02-2023 03-15-2022 Chronic Chronic obstructive pulmonary disease and bronchiectasis (2 sources) Bronchitis, not specified as acute or chronic Episodic Coronary atherosclerosis and other heart disease (1 source) Arteriosclerotic vascular disease; Translations: [Atherosclerotic heart disease of [place] coronary artery without angina pectoris] 11-01-2023 Chronic Diabetes mellitus with complications (1 source) Hyperglycemia due to type 2 diabetes mellitus; Translations: [Type 2 diabetes mellitus with hyperglycemia] Chronic Disorders of lipid metabolism (20 sources) Mixed hyperlipidemia; Translations: [Mixed hyperlipidemia] Onset: 03-19-2018 03-19-2018 Chronic Esophageal disorders (20 sources) Gastroesophageal reflux disease; Translations: [Gastro-esophageal reflux disease without esophagitis] Onset: 02-08-2022 03-15-2022 Chronic Essential hypertension (20 sources) Essential (primary) hypertension; Translations: [Essential hypertension] Onset: 12-13-2022 01-31-2023 Chronic Fever of unknown origin (1 source) Fever Onset: 10-09-2023 Episodic Heart valve disorders (20 sources) Rheumatic mitral valve disease, unspecified; Translations: [Mitral valve disorders] Onset: 05-08-2007 05-08-2007 Chronic Nonmalignant breast conditions (1 source) Other specified disorders of breast; Translations: [Other specified disorders of breast] Onset: 09-20-2023 Episodic Nonspecific chest pain (3 sources) Other chest pain; Translations: [Chest pain, unspecified] Onset: 03-15-2022 11-05-2023 Episodic Osteoarthritis (20 sources) Bilateral primary osteoarthritis of knee; Translations: [Primary gonarthrosis, bilateral] Onset: 12-23-2017 12-23-2017 Chronic Other aftercare (1 source) Other [facility] (current[facility] drug therapy; Translations: [OTH SNF CURRENT DRUG THERAPY] Onset: 12-13-2022 Episodic Other bone disease and musculoskeletal deformities (20 sources) Idiopathic kyphoscoliosis; Translations: [Other idiopathic scoliosis, site unspecified] Onset: 12-16-2007 12-16-2007 Chronic Other circulatory disease (1 source) Personal history of other diseases of the circulatory system; Translations: [PERSONAL HISTORY OTH DZ CIRC SYSTEM] Onset: 12-13-2022 Episodic Other connective tissue disease (1 source) Presence of artificial knee joint, bilateral; Translations: [Presence of artificial knee joint, bilateral] Onset: 05-19-2018 Chronic Other connective tissue disease (20 sources) History of total knee arthroplasty; Translations: [Presence of artificial knee joint, bilateral] Onset: 04-21-2018 04-21-2018 Chronic Other connective tissue disease (20 sources) History of bilateral total knee replacement; Translations: [Presence of artificial knee joint, bilateral] Onset: 05-19-2018 05-19-2018 Chronic Other connective tissue disease (10 sources) Weakness of right arm; Translations: [Other symptoms and signs involving the musculoskeletal system] Onset: 03-14-2022 Episodic Other diseases of veins and lymphatics (1 source) Lymphedema, not elsewhere classified; Translations: [Lymphedema] Onset: 09-20-2023 Chronic Other lower respiratory disease (1 source) Other disorders of lung; Translations: [OTHER DISORDERS OF LUNG] Onset: 12-13-2022 Episodic Other lower respiratory disease (1 source) Cough Onset: 10-09-2023 Episodic Other nervous system disorders (1 source) Other acute postprocedural pain; Translations: [Post-op pain] Onset: 09-04-2023 Episodic Other nutritional; endocrine; and metabolic disorders (20 sources) Obesity; Translations: [Obesity, unspecified] 05-06-2007 Chronic Other nutritional; endocrine; and metabolic disorders (20 sources) Body mass index 40+ - severely obese; Translations: [Morbid (severe) obesity due to excess calories] Onset: 12-23-2017 12-23-2017 Chronic Other nutritional; endocrine; and metabolic disorders (1 source) Obesity, unspecified; Translations: [OBESITY UNSPECIFIED] Onset: 03-15-2022 Chronic Other nutritional; endocrine; and metabolic disorders (2 sources) Body mass index (BMI) 50.0-59.9, adult; Translations: [BODY MASS INDEX BMI 50.0-59.9 ADULT] Onset: 03-15-2022 Chronic Other nutritional; endocrine; and metabolic disorders (20 sources) Morbid obesity; Translations: [Morbid (severe) obesity due to excess calories] Onset: 12-23-2017 07-26-2023 Chronic Other nutritional; endocrine; and metabolic disorders (1 source) Other specified hyperalimentation; Translations: [Other specified hyperalimentation] Onset: 07-26-2023 Chronic Other nutritional; endocrine; and metabolic disorders (1 source) Morbid (severe) obesity due to excess calories; Translations: [Morbid obesity with BMI of 50.0-59.9, adult (HCC)] Onset: 01-31-2023 Chronic Other upper respiratory disease (1 source) Pain in throat Onset: 10-09-2023 Episodic Other upper respiratory infections (5 sources) Acute upper respiratory infection, unspecified; Translations: [Recurrent acute sinusitis] Onset: 10-09-2023 Episodic Otitis media and related conditions (2 sources) Non-suppurative otitis media; Translations: [Unspecified nonsuppurative otitis media, right ear] Onset: 10-09-2023 10-09-2023 Episodic Pneumonia (except that caused by tuberculosis or sexually transmitted disease) (3 sources) Pneumonia, unspecified organism; Translations: [Human metapneumovirus pneumonia] Onset: 12-10-2022 Episodic Pulmonary heart disease (1 source) Pulmonary embolism; Translations: [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] 11-05-2023 Episodic Residual codes; unclassified (1 source) Personal history of other specified conditions; Translations: [PERSONAL HISTORY OTH SPEC CONDITION] Onset: 12-13-2022 Episodic Residual codes; unclassified (1 source) History of left mastectomy; Translations: [Acquired absence of left breast and nipple] 08-08-2023 Episodic Residual codes; unclassified (1 source) Other specified postprocedural states; Translations: [Post-operative state] Onset: 09-20-2023 Episodic Residual codes; unclassified (1 source) Postoperative state; Translations: [Other specified postprocedural states] 10-24-2023 Episodic Residual codes; unclassified (1 source) Generalized edema; Translations: [Generalized edema] Onset: 09-18-2023 Episodic Residual codes; unclassified (1 source) Edema, generalized; Translations: [Generalized edema] 11-05-2023 Episodic Residual codes; unclassified (1 source) Pain, unspecified; Translations: [Pain, unspecified] Onset: 02-24-2018 Rheumatoid arthritis and related disease (20 sources) Rheumatoid arthritis; Translations: [Rheumatoid arthritis, unspecified] Onset: 07-26-2023 07-26-2023 Chronic Thyroid disorders (6 sources) Thyroid nodule; Translations: [Nontoxic single thyroid nodule] Onset: 10-02-2022 Chronic Unclassified (20 sources) ASA CLASS II Onset: 05-06-2007 05-06-2007 Unclassified (1 source) CONTACT W/AND (SUSP) EXPOS COVID-19; Translations: [CONTACT W/AND (SUSP) EXPOS COVID-19] Onset: 12-13-2022 Unclassified (1 source) PERSONAL HISTORY OF COVID-19; Translations: [PERSONAL HISTORY OF COVID-19] Onset: 12-13-2022 Unclassified (1 source) Sinus Problem Onset: 10-09-2023 Past or Other Problems Problem Classification Problem Date Documented Date Episodic/Chronic Abdominal hernia (3 sources) Hiatal hernia; Translations: [Diaphragmatic hernia without obstruction or gangrene] Onset: 12-13-2022 Episodic Calculus of urinary tract (7 sources) Kidney stone; Translations: [Calculus of kidney] Onset: 07-06-2021 04-02-2023 Episodic Cardiac dysrhythmias (20 sources) Paroxysmal atrial fibrillation; Translations: [Paroxysmal atrial fibrillation] Onset: 12-08-2021 Resolved: 04-02-2023 Chronic Cardiac dysrhythmias (20 sources) Palpitations; Translations: [Palpitations] Onset: 02-05-2023 02-05-2023 Episodic Diabetes mellitus without complication (7 sources) Abnormal glucose level; Translations: [Other abnormal glucose] Onset: 04-24-2023 04-24-2023 Episodic Genitourinary symptoms and ill-defined conditions (3 sources) Dysuria; Translations: [Dysuria] Onset: 08-12-2022 Episodic Heart valve disorders (20 sources) Heart murmur; Translations: [Cardiac murmur, unspecified] Onset: 05-06-2007 05-06-2007 Episodic Immunizations and screening for infectious disease (1 source) Contact with and (suspected) exposure to other viral communicable diseases Onset: 07-07-2021 Resolved: 07-07-2021 Episodic Malaise and fatigue (1 source) Weakness; Translations: [WEAKNESS] Onset: 03-15-2022 Episodic Mood disorders (7 sources) Mood disorders Onset: 05-14-2023 05-14-2023 Nausea and vomiting (1 source) Nausea; Translations: [NAUSEA] Onset: 03-15-2022 Episodic Other connective tissue disease (20 sources) Other symptoms and signs involving the musculoskeletal system; Translations: [Other musculoskeletal symptoms referable to limbs] Onset: 03-14-2022 03-15-2022 Episodic Other lower respiratory disease (1 source) Shortness of breath; Translations: [SHORTNESS OF BREATH] Onset: 03-15-2022 Episodic Other lower respiratory disease (20 sources) Dyspnea on exertion; Translations: [Other forms of dyspnea] Onset: 01-31-2023 01-31-2023 Episodic Other lower respiratory disease (1 source) Dyspnea, unspecified; Translations: [Dyspnea, unspecified] Onset: 07-02-2022 Episodic Other lower respiratory disease (1 source) Other forms of dyspnea; Translations: [PETERSON (dyspnea on exertion)] Onset: 01-31-2023 Episodic Other nervous system disorders (20 sources) Acute postoperative pain; Translations: [Other acute postprocedural pain] Onset: 04-21-2018 04-21-2018 Episodic Other non-traumatic joint disorders (7 sources) Hip pain; Translations: [Pain in left hip] Onset: 04-24-2023 04-24-2023 Episodic Other nutritional; endocrine; and metabolic disorders (7 sources) Overweight; Translations: [Overweight] Onset: 04-24-2023 04-24-2023 Episodic Other screening for suspected conditions (not mental disorders or infectious disease) (9 sources) Patient encounter status; Translations: [Encounter for screening for malignant neoplasm of colon] Onset: 09-12-2020 Episodic Residual codes; unclassified (20 sources) Edema; Translations: [Edema, unspecified] Onset: 01-31-2023 01-31-2023 Episodic Residual codes; unclassified (7 sources) Edema of lower leg ; Translations: [Localized edema] Onset: 04-24-2023 04-24-2023 Episodic Residual codes; unclassified (7 sources) Generalized chronic body pains; Translations: [Pain, unspecified] Onset: 04-24-2023 04-24-2023 Episodic Residual codes; unclassified (1 source) Estrogen receptor positive status [ER+]; Translations: [Malignant neoplasm of left breast in female, estrogen receptor positive, unspecified site of breast (HCC)] Onset: 07-29-2023 Episodic Spondylosis; intervertebral disc disorders; other back problems (20 sources) Spinal stenosis other than cervical; Translations: [Spinal stenosis, site unspecified] Onset: 03-13-2022 05-06-2007 Episodic Unclassified (1 source) Cough R05.9 Unclassified (1 source) Contact with and (suspected) exposure to covid-19 Z20.822 Viral infection (1 source) COVID-19 Results Test Name Value Interpretation Reference Range Facility [facility] 11-11-2023 [facility] Normal [facility] 11-06-2023 [facility] Normal [facility] CBC W Auto Differential pane l (Bld)on 11-05-2023 Anisocytosis Ql (Bld) Present Normal [facility] Comment on above: Order Comment: Speci men Type: BLOOD SPECIMENOrdering Facility: [facility] Address: [address] [place] [address] Performed By: #### 5 7021-8 ####[facility] LABCLIA [id number] [place], [place] [id number] LABCL[facility] [id number] [place] [address] [place] Basophils (Bld) [#/Vol] 0.00 10*3/uL Normal <0.11 [facility] Comment on above: Order Comment: Speci men Type: BLOOD SPECIMENOrdering Facility: [facility] Address: [address] [place] [address] Performed By: #### 5 7021-8 ####[facility] LABCLIA [id number] [address] LABCLIA [id number] [place] [address] [place] Basophils/100 WBC (Bld) 0.0 % Normal [facility] Comment on above: Order Comment: Speci men Type: BLOOD SPECIMENOrdering Facility: [facility] Address: [address] [place] [address] Performed By: #### 5 7021-8 ####[facility] LABCLIA [id number] [address] LABCLIA [id number] [place] [address] [place] Differential cell count method Nom (Bld) Manual Normal [facility] Comment on above: Order Comment: Speci men Type: BLOOD SPECIMENOrdering Facility: [facility] Address: [address] [place] [address] Performed By: #### 5 7021-8 ####[facility] LABCLIA [id number] [address] LABCLIA [id number] [place] [address] [place] Eosinophils (Bld) [#/Vol] 0.06 10*3/uL Normal <0.46 [facility] Comment on above: Order Comment: Speci men Type: BLOOD SPECIMENOrdering Facility: [facility] Address: [address] [place] [address] Performed By: #### 5 7021-8 ####[facility] LABCLIA [id number] [place] [id number] LABCLIA [id number] [place] [address] [place] Eosinophils/100 WBC (Bld) 0.9 % Normal [facility] Comment on above: Order Comment: Speci men Type: BLOOD SPECIMENOrdering Facility: [facility] Address: [address] [place] [address] Performed By: #### 5 7021-8 ####[facility] LABCLIA [id number] [address] LABCLIA [id number] [place] [address] [place] Erythrocyte distribution width (RBC) [Ratio] 14.6 % Normal 11.5-15.0 [facility] Comment on above: Order Comment: Speci men Type: BLOOD SPECIMENOrdering Facility: [facility] Address: [address] [place] [address] Performed By: #### 5 7021-8 ####[facility] LABCLIA [id number] [address] LABCLIA [id number] [place] [address] [place] Giant platelets LM Ql (Bld) Occasional Normal [facility] Comment on above: Order Comment: Speci men Type: BLOOD SPECIMENOrdering Facility: [facility] Address: [address] [place] [address] Performed By: #### 5 7021-8 ####[facility] LABCLIA [id number] [address] LABCLIA [id number] [place] [address] [place] Hematocrit (Bld) [Volume fraction] 36.1 % Normal 36.0-46.0 [facility] Comment on above: Order Comment: Speci men Type: BLOOD SPECIMENOrdering Facility: [facility] Address: [address] [place] [address] Performed By: #### 5 7021-8 ####[facility] LABCLIA [id number] [address] LABCLIA [id number] [place] [address] [place] Hemoglobin (Bld) [Mass/Vol] 11.9 g/dL Normal 11.5-15.5 [facility] Comment on above: Order Comment: Speci men Type: BLOOD SPECIMENOrdering Facility: [facility] Address: [address] [place] [address] Performed By: #### 5 7021-8 ####[facility] LABCLIA [id number] [address] LABCLIA [id number] [place] [address] [place] Lymphocytes (Bld) [#/Vol] 1.82 10*3/uL Normal 1.00-4.00 [facility] Comment on above: Order Comment: Speci men Type: BLOOD SPECIMENOrdering Facility: [facility] Address: [address] [place] [address] Performed By: #### 5 7021-8 ####[facility] LABCLIA [id number] [address] LABCLIA [id number] [place] [address] [place] Lymphocytes/100 WBC (Bld) 26.1 % Normal [facility] Comment on above: Order Comment: Speci men Type: BLOOD SPECIMENOrdering Facility: [facility] Address: [address] [place] [address] Performed By: #### 5 7021-8 ####[facility] LABCLIA [id number] [address] LABCLIA [id number] [place] [address] [place] MCH (RBC) [Entitic mass] 30.7 pg Normal 26.0-34.0 [facility] Comment on above: Order Comment: Speci men Type: BLOOD SPECIMENOrdering Facility: [facility] Address: [address] [place] [address] Performed By: #### 5 7021-8 ####[facility] LABCLIA [id number] [address] LABCLIA [id number] [place] [address] [place] MCHC (RBC) [Mass/Vol] 33.0 g/dL Normal 30.5-36.0 [facility] Comment on above: Order Comment: Speci men Type: BLOOD SPECIMENOrdering Facility: [facility] Address: [address] [place] [address] Performed By: #### 5 7021-8 ####[facility] LABCLIA [id number] [address] LABCLIA [id number] [place] [address] [place] MCV (RBC) [Entitic vol] 93.3 fL Normal 80.0-100.0 [facility] Comment on above: Order Comment: Speci men Type: BLOOD SPECIMENOrdering Facility: [facility] Address: [address] [place] [address] Performed By: #### 5 7021-8 ####[facility] LABCLIA [id number] [address] LABCLIA [id number] [place] [address] [place] Metamyelocytes/100 WBC (Bld) 2.7 % Normal [facility] Comment on above: Order Comment: Speci men Type: BLOOD SPECIMENOrdering Facility: [facility] Address: [address] [place] [address] Performed By: #### 5 7021-8 ####[facility] LABCLIA [id number] [address] LABCLIA [id number] [place] [address] [place] Monocytes (Bld) [#/Vol] 0.38 10*3/uL Normal <0.87 [facility] Comment on above: Order Comment: Speci men Type: BLOOD SPECIMENOrdering Facility: [facility] Address: [address] [place] [address] Performed By: #### 5 7021-8 ####[facility] LABCLIA [id number] [address] LABCLIA [id number] [place] [address] [place] Monocytes/100 WBC (Bld) 5.4 % Normal [facility] Comment on above: Order Comment: Speci men Type: BLOOD SPECIMENOrdering Facility: [facility] Address: [address] [place] [address] Performed By: #### 5 7021-8 ####[facility] LABCLIA [id number] [address] LABCLIA [id number] [place] [address] [place] MYELO% 0.9 % Normal [facility] Comment on above: Order Comment: Speci men Type: BLOOD SPECIMENOrdering Facility: [facility] Address: [address] [place] [address] Performed By: #### 5 7021-8 ####[facility] LABCLIA [id number] [address] LABCLIA [id number] [place] [address] [place] Neutrophils (Bld) [#/Vol] 4.45 10*3/uL Normal 1.45-7.50 [facility] Comment on above: Order Comment: Speci men Type: BLOOD SPECIMENOrdering Facility: [facility] Address: [address] [place] [address] Performed By: #### 5 7021-8 ####[facility] LABCLIA [id number] [address] LABCLIA [id number] [place] [address] [place] Neutrophils/100 WBC (Bld) 64.0 % Normal [facility] Comment on above: Order Comment: Speci men Type: BLOOD SPECIMENOrdering Facility: [facility] Address: [address] [place] [address] Performed By: #### 5 7021-8 ####[facility] LABCLIA [id number] [address] LABCLIA [id number] [place] [address] [place] Nucleated RBC (Bld) [#/Vol] 10*3/uL Normal <0.01 [facility] Comment on above: Order Comment: Speci men Type: BLOOD SPECIMENOrdering Facility: [facility] Address: [address] [place] [address] Performed By: #### 5 7021-8 ####[facility] LABCLIA [id number] [address] LABCLIA [id number] [place] [address] [place] Nucleated RBC/100 WBC (Bld) [Ratio] 0.0 /100 WBC Normal [facility] Comment on above: Order Comment: Speci men Type: BLOOD SPECIMENOrdering Facility: [facility] Address: [address] [place] [address] Performed By: #### 5 7021-8 ####[facility] LABCLIA [id number] [address] LABCLIA [id number] [place] [address] [place] Ovalocytes LM Ql (Bld) Few Normal [facility] Comment on above: Order Comment: Speci men Type: BLOOD SPECIMENOrdering Facility: [facility] Address: [address] [place] [address] Performed By: #### 5 7021-8 ####[facility] LABCLIA [id number] [address] LABCLIA [id number] [place] [address] [place] Platelet mean volume (Bld) [Entitic vol] 10.3 fL Normal 9.0-12.7 [facility] Comment on above: Order Comment: Speci men Type: BLOOD SPECIMENOrdering Facility: [facility] Address: [address] [place] [address] Performed By: #### 5 7021-8 ####[facility] LABCLIA [id number] [address] LABCLIA [id number] [place] [address] [place] Platelets (Bld) [#/Vol] 382 10*3/uL Normal 150-400 [facility] Comment on above: Order Comment: Speci men Type: BLOOD SPECIMENOrdering Facility: [facility] Address: [address] [place] [address] Performed By: #### 5 7021-8 ####[facility] LABCLIA [id number] [address] LABCLIA [id number] [place] [address] [place] Platelets Estimate (Bld) [#/Vol] Adequate Normal [facility] Comment on above: Order Comment: Speci men Type: BLOOD SPECIMENOrdering Facility: [facility] Address: [address] [place] [address] Performed By: #### 5 7021-8 ####[facility] LABCLIA [id number] [place] [id number] LABCLIA [id number] [place] [address] [place] Polychromasia LM Ql (Bld) Slight Normal [facility] Comment on above: Order Comment: Speci men Type: BLOOD SPECIMENOrdering Facility: [facility] Address: [address] [place] [address] Performed By: #### 5 7021-8 ####[facility] LABCLIA [id number] [address] LABCLIA [id number] [place] [address] [place] RBC (Bld) [#/Vol] 3.87 10*6/uL Low 3.90-5.20 [facility] Comment on above: Order Comment: Speci men Type: BLOOD SPECIMENOrdering Facility: [facility] Address: [address] [place] [address] Performed By: #### 5 7021-8 ####[facility] LABCLIA [id number] [address] LABCLIA [id number] [place] [address] [place] RBC FRAGMENTS Few Abnormal None Seen [facility] Comment on above: Order Comment: Speci men Type: BLOOD SPECIMENOrdering Facility: [facility] Address: [address] [place] [address] Performed By: #### 5 7021-8 ####[facility] LABCLIA [id number] [address] LABCLIA [id number] [place] [address] [place] RED CELL MORPH Reviewed: see result s of individual morphologies Normal [facility] Comment on above: Order Comment: Speci men Type: BLOOD SPECIMENOrdering Facility: [facility] Address: [address] [place] [address] Performed By: #### 5 7021-8 ####[facility] LABCLIA [id number] [address] LABCLIA [id number] [place] [address] [place] WBC (Bld) [#/Vol] 6.96 10*3/uL Normal 3.70-11.00 [facility] Comment on above: Order Comment: Speci men Type: BLOOD SPECIMENOrdering Facility: [facility] Address: [address] [place] [address] Performed By: #### 5 7021-8 ####[facility] LABCLIA [id number] [place] [id number] LABCLIA [id number] [place] [address] [place] WBC Left Shift Ql (Bld) Present Normal [facility] Comment on above: Order Comment: Speci men Type: BLOOD SPECIMENOrdering Facility: [facility] Address: [address] [place] [address] Performed By: #### 5 7021-8 ####[facility] LABCLIA [id number] [place] [id number] LABCLIA [id number] [place] [address] [place] CNOVSPon 11-05-2023 CNOVSP Normal [facility] CNPNon 11-05-2023 CNPN Normal [facility] CT CTA CHESTon 11-05-[address] CTA CHEST CTA CHEST COMPARISON: 03/12/2016 HISTORY: Chest pain. TECHNIQUE: 100 mL of Omnipaque 350 nonionic contrast injected intravenously without reported complication. Thin section axial images of the thorax obtained with multiplanar reformatted 3-D MIP images of the thorax generated under concurrent physician supervision and reviewed. Automatic exposure control (AEC) was utilized. FINDINGS: Filling defects are seen within lobar and segmental branches to the right upper middle and lower lobe. No saddle emboli seen. Mean pulmonary artery is not dilated. There is some reflux into the hepatic veins which can be seen with right heart dysfunction There is no pleural pericardial effusion. Right lower lobe small focus of consolidation which could resent a small pulmonary infarction. Subsegmental atelectasis is seen. There is no pneumothorax IMPRESSION: Lobar and segmental pulmonary emboli to the right upper, middle, and lower lobe No evidence of right heart strain. Possible small pulmonary infarction right lower lobe Reflux into the hepatic veins which can be seen with right heart dysfunction. Main pulmonary artery is not dilated Results of the study were called to the patient's physician on 11/05/[address] scans at this facility use dose modulation, iterative reconstruction, and/or weight based dosing when appropriate to reduce radiation dose to as low as reasonably achievable. Finalized by Adelaide Garza DO on 11/05/2023 3:07 PM Normal [facility] Comprehensive metabolic 2000 panelon 11-05-2023 Albumin [Mass/Vol] 3.9 g/dL Normal 3.9-4.9 [facility] Comment on above: Order Comment: Speci men Type: BLOOD SPECIMENOrdering Facility: [facility] Address: [address] [place] [address] Performed By: #### 2 4323-8 ####[facility] LABCLIA [id number] [place] [address] ALP [Catalytic activity/Vol] 124 U/L High 34-123 [facility] Comment on above: Order Comment: Speci men Type: BLOOD SPECIMENOrdering Facility: [facility] Address: [address] [place] [address] Performed By: #### 2 4323-8 ####[facility] LABCLIA [id number] [place] [address] ALT [Catalytic activity/Vol] 29 U/L Normal 7-38 [facility] Comment on above: Order Comment: Speci men Type: BLOOD SPECIMENOrdering Facility: [facility] Address: [address] [place] [address] Performed By: #### 2 4323-8 ####[facility] LABCLIA [id number] [place] [address] Anion gap [Moles/Vol] 15 mmol/L Normal 9-18 [facility] Comment on above: Order Comment: Speci men Type: BLOOD SPECIMENOrdering Facility: [facility] Address: [address] [place] [address] Performed By: #### 2 4323-8 ####[facility] LABCLIA [id number] [place] [address] AST [Catalytic activity/Vol] 18 U/L Normal 13-35 [facility] Comment on above: Order Comment: Speci men Type: BLOOD SPECIMENOrdering Facility: [facility] Address: [address] [place] [address] Performed By: #### 2 4323-8 ####[facility] LABCLIA [id number] [place] [address] Bilirubin [Mass/Vol] 0.3 mg/dL Normal 0.2-1.3 [facility] Comment on above: Order Comment: Speci men Type: BLOOD SPECIMENOrdering Facility: [facility] Address: [address] [place] [address] Performed By: #### 2 4323-8 ####[facility] LABCLIA [id number] [place] [address] Calcium [Mass/Vol] 9.0 mg/dL Normal 8.5-10.2 [facility] Comment on above: Order Comment: Speci men Type: BLOOD SPECIMENOrdering Facility: [facility] Address: [address] [place] [address] Performed By: #### 2 4323-8 ####[facility] LABCLIA [id number] [place] [address] Chloride [Moles/Vol] 105 mmol/L Normal 97-105 [facility] Comment on above: Order Comment: Speci men Type: BLOOD SPECIMENOrdering Facility: [facility] Address: [address] [place] [address] Performed By: #### 2 4323-8 ####[facility] LABCLIA [id number] [place] [address] CO2 [Moles/Vol] 22 mmol/L Normal 22-30 [facility] Comment on above: Order Comment: Speci men Type: BLOOD SPECIMENOrdering Facility: [facility] Address: [address] [place] [address] Performed By: #### 2 4323-8 ####[facility] LABCLIA [id number] [place] [address] Creatinine [Mass/Vol] 0.90 mg/dL Normal 0.58-0.96 [facility] Comment on above: Order Comment: Speci men Type: BLOOD SPECIMENOrdering Facility: [facility] Address: [address] [place] [address] Performed By: #### 2 4323-8 ####[facility] LABCLIA [id number] [place] [address] Creatinine and Glomerular filtration rate.predicted panel (S/P/Bld) 69 mL/min/1.73m??? Normal >=60 [facility] Comment on above: Order Comment: Speci men Type: BLOOD SPECIMENOrdering Facility: [facility] Address: [address] [place] [address] Result Comment: Cristal mated Glomerular Filtration Rate (eGFR) is calculated using the 2020 CKD-EPI creatinine equation. This equation utilizes serum creatinine, sex, and age as parameters. The creatinine assay has traceable calibration to isotope dilution-mass spectrometry. Refer to KDIGO guidelines for clinical interpretation. In patients with unstable renal function, e.g. those with acute kidney injury, the eGFR may not accurately reflect actual GFR. Performed By: #### 2 4323-8 ####[facility] LABCLIA [id number] [place] [address] Glucose [Mass/Vol] 186 mg/dL High 74-99 [facility] Comment on above: Order Comment: Alison mccain Type: BLOOD SPECIMENOrdering Facility: [facility] Address: [address] [place] [address] Result Comment: The [place] Diabetes Association (ADA) provides guidance for cutoff values for fasting glucose and random glucose. The ADA defines fasting as no caloric intake for at least 8 hours. Fasting plasma glucose results between 100 to 125 mg/dL indicate increased risk for diabetes (prediabetes).Fasting plasma glucose results greater than or equal to 126 mg/dL meet the criteria for diagnosis of diabetes. In the absence of unequivocal hyperglycemia, results should be confirmed by repeat testing. In a patient with classic symptoms of hyperglycemia or hyperglycemic crisis, random plasma glucose results greater than or equal to 200 mg/dL meet the criteria for diagnosis of diabetes.Reference: Standards of Medical Care in Diabetes 2016, Canadian Diabetes Association. Diabetes Care. 2016.39(Suppl 1). Performed By: #### 2 4323-8 ####[facility] LABCLIA [id number] [place] [address] Potassium [Moles/Vol] 4.1 mmol/L Normal 3.7-5.1 [facility] Comment on above: Order Comment: Alison mccain Type: BLOOD SPECIMENOrdering Facility: [facility] Address: [address] [place] [address] Performed By: #### 2 4323-8 ####[facility] LABCLIA [id number] [place] [address] Protein [Mass/Vol] 6.4 g/dL Normal 6.3-8.0 [facility] Comment on above: Order Comment: Alison mccain Type: BLOOD SPECIMENOrdering Facility: [facility] Address: [address] [place] [address] Performed By: #### 2 4323-8 ####[facility] LABCLIA [id number] [place] [address] Sodium [Moles/Vol] 142 mmol/L Normal 136-144 [facility] Comment on above: Order Comment: Speci men Type: BLOOD SPECIMENOrdering Facility: [facility] Address: [address] [place] [address] Performed By: #### 2 4323-8 ####[facility] LABCLIA [id number] [place] [id number] Urea nitrogen [Mass/Vol] 12 mg/dL Normal 7-21 [facility] Comment on above: Order Comment: Speci men Type: BLOOD SPECIMENOrdering Facility: [facility] Address: [address] [place] [address] Performed By: #### 2 4323-8 ####[facility] LABCLIA [id number] [place] [id number] Albumin [Mass/Vol] 3.9 g/dL 3.9 - 4.9 g/dL [facility] ALP [Catalytic activity/Vol] 124 U/L High 34 - 123 U/L [facility] ALT [Catalytic activity/Vol] 29 U/L 7 - 38 U/L [facility] Anion gap [Moles/Vol] 15 mmol/L 9 - 18 mmol/L [facility] AST [Catalytic activity/Vol] 18 U/L 13 - 35 U/L [facility] Bilirubin [Mass/Vol] 0.3 mg/dL 0.2 - 1 .3 mg/dL [facility] Calcium [Mass/Vol] 9.0 mg/dL 8.5 - 10. 2 mg/dL [facility] Chloride [Moles/Vol] 105 mmol/L 97 - 10 5 mmol/L [facility] CO2 [Moles/Vol] 22 mmol/L 22 - 30 mmol/L [facility] Creatinine [Mass/Vol] 0.90 mg/dL 0.58 - 0.96 mg/dL [facility] Estimated Glomerular Filtration Rate 69 mL/min/1.73m >=60 mL/min/1.7 3m [facility] Glucose [Mass/Vol] 186 mg/dL High 74 - 99 mg/dL [facility] Potassium [Moles/Vol] 4.1 mmol/L 3.7 - 5.1 mmol/L [facility] Protein [Mass/Vol] 6.4 g/dL 6.3 - 8.0 g/dL [facility] Sodium [Moles/Vol] 142 mmol/L 136 - 144 mmol/L [facility] Urea nitrogen [Mass/Vol] 12 mg/dL 7 - 21 mg/dL [facility] CNPNon 10-25-2023 CNPN Normal [facility] CBC W Auto Differential pane l (Bld)on 10-22-2023 Basophils (Bld) [#/Vol] 0.04 10*3/uL Normal <0.11 [facility] Comment on above: Order Comment: Speci men Type: BLOOD SPECIMENOrdering Facility: [facility] Address: [address] [place] [address] Performed By: #### 5 7021-8 ####[facility] LABCLIA [id number] [place] [address] Basophils/100 WBC (Bld) 0.3 % Normal [facility] Comment on above: Order Comment: Speci men Type: BLOOD SPECIMENOrdering Facility: [facility] Address: [address] [place] [address] Performed By: #### 5 7021-8 ####[facility] LABCLIA [id number] [place] [address] Differential cell count method Nom (Bld) Auto Normal [facility] Comment on above: Order Comment: Speci men Type: BLOOD SPECIMENOrdering Facility: [facility] Address: [address] [place] [address] Performed By: #### 5 7021-8 ####[facility] LABCLIA [id number] [place] [address] Eosinophils (Bld) [#/Vol] 0.19 10*3/uL Normal <0.46 [facility] Comment on above: Order Comment: Speci men Type: BLOOD SPECIMENOrdering Facility: [facility] Address: [address] [place] [address] Performed By: #### 5 7021-8 ####[facility] LABCLIA [id number] [place] [address] Eosinophils/100 WBC (Bld) 1.6 % Normal [facility] Comment on above: Order Comment: Speci men Type: BLOOD SPECIMENOrdering Facility: [facility] Address: [address] [place] [address] Performed By: #### 5 7021-8 ####[facility] LABCLIA [id number] [place] [address] Erythrocyte distribution width (RBC) [Ratio] 14.3 % Normal 11.5-15.0 [facility] Comment on above: Order Comment: Speci men Type: BLOOD SPECIMENOrdering Facility: [facility] Address: [address] [place] [address] Performed By: #### 5 7021-8 ####[facility] LABCLIA [id number] [place] [address] Hematocrit (Bld) [Volume fraction] 42.8 % Normal 36.0-46.0 [facility] Comment on above: Order Comment: Speci men Type: BLOOD SPECIMENOrdering Facility: [facility] Address: [address] [place] [address] Performed By: #### 5 7021-8 ####[facility] LABCLIA [id number] [place] [address] Hemoglobin (Bld) [Mass/Vol] 14.0 g/dL Normal 11.5-15.5 [facility] Comment on above: Order Comment: Speci men Type: BLOOD SPECIMENOrdering Facility: [facility] Address: [address] [place] [address] Performed By: #### 5 7021-8 ####[facility] LABCLIA [id number] [place] [address] Immature granulocytes (Bld) [#/Vol] 0.05 10*3/uL Normal <0.10 [facility] Comment on above: Order Comment: Speci men Type: BLOOD SPECIMENOrdering Facility: [facility] Address: [address] [place] [address] Performed By: #### 5 7021-8 ####[facility] LABCLIA [id number] [place] [address] Immature granulocytes/100 WBC (Bld) 0.4 % Normal [facility] Comment on above: Order Comment: Speci men Type: BLOOD SPECIMENOrdering Facility: [facility] Address: [address] [place] [address] Performed By: #### 5 7021-8 ####[facility] LABCLIA [id number] [place] [address] Lymphocytes (Bld) [#/Vol] 2.04 10*3/uL Normal 1.00-4.00 [facility] Comment on above: Order Comment: Speci men Type: BLOOD SPECIMENOrdering Facility: [facility] Address: [address] [place] [address] Performed By: #### 5 7021-8 ####[facility] LABCLIA [id number] [place] [address] Lymphocytes/100 WBC (Bld) 16.8 % Normal [facility] Comment on above: Order Comment: Speci men Type: BLOOD SPECIMENOrdering Facility: [facility] Address: [address] [place] [address] Performed By: #### 5 7021-8 ####[facility] LABCLIA [id number] [place] [address] MCH (RBC) [Entitic mass] 30.8 pg Normal 26.0-34.0 [facility] Comment on above: Order Comment: Speci men Type: BLOOD SPECIMENOrdering Facility: [facility] Address: [address] [place] [address] Performed By: #### 5 7021-8 ####[facility] LABCLIA [id number] [place] [address] MCHC (RBC) [Mass/Vol] 32.7 g/dL Normal 30.5-36.0 [facility] Comment on above: Order Comment: Speci men Type: BLOOD SPECIMENOrdering Facility: [facility] Address: [address] [place] [address] Performed By: #### 5 7021-8 ####[facility] LABCLIA [id number] [place] [address] MCV (RBC) [Entitic vol] 94.1 fL Normal 80.0-100.0 [facility] Comment on above: Order Comment: Speci men Type: BLOOD SPECIMENOrdering Facility: [facility] Address: [address] [place] [address] Performed By: #### 5 7021-8 ####[facility] LABIA [id number] [place] [address] Monocytes (Bld) [#/Vol] 0.54 10*3/uL Normal <0.87 [facility] Comment on above: Order Comment: Speci men Type: BLOOD SPECIMENOrdering Facility: [facility] Address: [address] [place] [address] Performed By: #### 5 7021-8 ####[facility] LABCLIA [id number] [place] [address] Monocytes/100 WBC (Bld) 4.4 % Normal [facility] Comment on above: Order Comment: Speci men Type: BLOOD SPECIMENOrdering Facility: [facility] Address: [address] [place] [address] Performed By: #### 5 7021-8 ####[facility] LABCLIA [id number] [place] [address] Neutrophils (Bld) [#/Vol] 9.30 10*3/uL High 1.45-7.50 [facility] Comment on above: Order Comment: Speci men Type: BLOOD SPECIMENOrdering Facility: [facility] Address: [address] [place] [address] Performed By: #### 5 7021-8 ####[facility] LABCLIA [id number] [place] [address] Neutrophils/100 WBC (Bld) 76.5 % Normal [facility] Comment on above: Order Comment: Speci men Type: BLOOD SPECIMENOrdering Facility: [facility] Address: [address] [place] [address] Performed By: #### 5 7021-8 ####[facility] LABCLIA [id number] [place] [address] Nucleated RBC (Bld) [#/Vol] 10*3/uL Normal <0.01 [facility] Comment on above: Order Comment: Speci men Type: BLOOD SPECIMENOrdering Facility: [facility] Address: [address] [place] [address] Performed By: #### 5 7021-8 ####[facility] LABCLIA [id number] [place] [address] Nucleated RBC/100 WBC (Bld) [Ratio] 0.0 /100 WBC Normal [facility] Comment on above: Order Comment: Speci men Type: BLOOD SPECIMENOrdering Facility: [facility] Address: [address] [place] [address] Performed By: #### 5 7021-8 ####[facility] LABCLIA [id number] [place] [address] Platelet mean volume (Bld) [Entitic vol] 9.7 fL Normal 9.0-12.7 [facility] Comment on above: Order Comment: Speci men Type: BLOOD SPECIMENOrdering Facility: [facility] Address: [address] [place] [address] Performed By: #### 5 7021-8 ####[facility] LABCLIA [id number] [place] [address] Platelets (Bld) [#/Vol] 300 10*3/uL Normal 150-400 [facility] Comment on above: Order Comment: Speci men Type: BLOOD SPECIMENOrdering Facility: [facility] Address: [address] [place] [address] Performed By: #### 5 7021-8 ####[facility] LABCLIA [id number] [place] [address] RBC (Bld) [#/Vol] 4.55 10*6/uL Normal 3.90-5.20 [facility] Comment on above: Order Comment: Speci men Type: BLOOD SPECIMENOrdering Facility: [facility] Address: [address] [place] [address] Performed By: #### 5 7021-8 ####[facility] LABCLIA [id number] [place] [address] WBC (Bld) [#/Vol] 12.16 10*3/uL High 3.70-11.00 [facility] Comment on above: Order Comment: Speci men Type: BLOOD SPECIMENOrdering Facility: [facility] Address: [address] [place] [address] Performed By: #### 5 7021-8 ####[facility] LABCLIA [id number] [place] [address] Basophils (Bld) [#/Vol] 0.04 10*3/uL <0.11 k/uL [facility] Basophils/100 WBC (Bld) 0.3 % [facility] Differential cell count method Nom (Bld) Auto [facility] Eosinophils (Bld) [#/Vol] 0.19 10*3/uL <0.46 k/uL [facility] Eosinophils/100 WBC (Bld) 1.6 % [facility] Erythrocyte distribution width (RBC) [Ratio] 14.3 % 11.5 - 15.0 % [facility] Hematocrit (Bld) [Volume fraction] 42.8 % 36.0 - 46.0 % [facility] Hemoglobin (Bld) [Mass/Vol] 14.0 g/dL 11.5 - 15.5 g/dL [facility] Immature granulocytes (Bld) [#/Vol] 0.05 10*3/uL <0.10 k/uL [facility] Immature granulocytes/100 WBC (Bld) 0.4 % [facility] Lymphocytes (Bld) [#/Vol] 2.04 10*3/uL 1.00 - 4.00 k/uL [facility] Lymphocytes/100 WBC (Bld) 16.8 % [facility] MCH (RBC) [Entitic mass] 30.8 pg 26.0 - 34.0 pg [facility] MCHC (RBC) [Mass/Vol] 32.7 g/dL 30.5 - 36.0 g/dL [facility] MCV (RBC) [Entitic vol] 94.1 fL 80.0 - 100.0 fL [facility] Monocytes (Bld) [#/Vol] 0.54 10*3/uL <0.87 k/uL [facility] Monocytes/100 WBC (Bld) 4.4 % [facility] Neutrophils (Bld) [#/Vol] 9.30 10*3/uL High 1.45 - 7.50 k/uL [facility] Neutrophils/100 WBC (Bld) 76.5 % [facility] Nucleated RBC (Bld) [#/Vol] <0.01 k/uL [facility] Nucleated RBC/100 WBC (Bld) [Ratio] 0.0 /100 WBC [facility] Platelet mean volume (Bld) [Entitic vol] 9.7 fL 9.0 - 12.7 fL [facility] Platelets (Bld) [#/Vol] 300 10*3/uL 150 - 400 k/uL [facility] RBC (Bld) [#/Vol] 4.55 10*6/uL 3.90 - 5.20 m/uL [facility] WBC (Bld) [#/Vol] 12.16 10*3/uL High 3.70 - 11.00 k/uL [facility] CNCNPATEDon 10-22-2023 CNCNPATED Normal [facility] CNOVSPon 10-22-2023 CNOVSP Normal [facility] CNPNon 10-22-2023 CNPN Normal [facility] Comprehensive metabolic 2000 panelon 10-22-2023 Albumin [Mass/Vol] 4.1 g/dL Normal 3.9-4.9 [facility] Comment on above: Order Comment: Speci men Type: BLOOD SPECIMENOrdering Facility: [facility] Address: [address] [place] [address] Performed By: #### 2 4323-8 ####[facility] LABCLIA [id number] [place] [address] ALP [Catalytic activity/Vol] 117 U/L Normal 34-123 [facility] Comment on above: Order Comment: Speci men Type: BLOOD SPECIMENOrdering Facility: [facility] Address: [address] [place] [address] Performed By: #### 2 4323-8 ####[facility] LABCLIA [id number] [place] [address] ALT [Catalytic activity/Vol] 32 U/L Normal 7-38 [facility] Comment on above: Order Comment: Speci men Type: BLOOD SPECIMENOrdering Facility: [facility] Address: [address] [place] [address] Performed By: #### 2 4323-8 ####[facility] LABCLIA [id number] [place] [address] Anion gap [Moles/Vol] 11 mmol/L Normal 9-18 [facility] Comment on above: Order Comment: Speci men Type: BLOOD SPECIMENOrdering Facility: [facility] Address: [address] [place] [address] Performed By: #### 2 4323-8 ####[facility] LABCLIA [id number] [place] [address] AST [Catalytic activity/Vol] 17 U/L Normal 13-35 [facility] Comment on above: Order Comment: Speci men Type: BLOOD SPECIMENOrdering Facility: [facility] Address: [address] [place] [address] Performed By: #### 2 4323-8 ####[facility] LABCLIA [id number] [place] [address] Bilirubin [Mass/Vol] 0.8 mg/dL Normal 0.2-1.3 [facility] Comment on above: Order Comment: Speci men Type: BLOOD SPECIMENOrdering Facility: [facility] Address: [address] [place] [address] Performed By: #### 2 4323-8 ####[facility] LABCLIA [id number] [place] [address] Calcium [Mass/Vol] 9.5 mg/dL Normal 8.5-10.2 [facility] Comment on above: Order Comment: Speci men Type: BLOOD SPECIMENOrdering Facility: [facility] Address: [address] [place] [address] Performed By: #### 2 4323-8 ####[facility] LABCLIA [id number] [place] [address] Chloride [Moles/Vol] 108 mmol/L High 97-105 [facility] Comment on above: Order Comment: Speci men Type: BLOOD SPECIMENOrdering Facility: [facility] Address: [address] [place] [address] Performed By: #### 2 4323-8 ####[facility] LABCLIA [id number] [place] [address] CO2 [Moles/Vol] 27 mmol/L Normal 22-30 [facility] Comment on above: Order Comment: Speci men Type: BLOOD SPECIMENOrdering Facility: [facility] Address: [address] [place] [address] Performed By: #### 2 4323-8 ####[facility] LABCLIA [id number] [place] [address] Creatinine [Mass/Vol] 1.01 mg/dL High 0.58-0.96 [facility] Comment on above: Order Comment: Speci men Type: BLOOD SPECIMENOrdering Facility: [facility] Address: [address] [place] [address] Performed By: #### 2 4323-8 ####[facility] LABCLIA [id number] [place] [address] Creatinine and Glomerular filtration rate.predicted panel (S/P/Bld) 61 mL/min/1.73m??? Normal >=60 [facility] Comment on above: Order Comment: Alison men Type: BLOOD SPECIMENOrdering Facility: [facility] Address: [address] [place] [address] Result Comment: Cristal mated Glomerular Filtration Rate (eGFR) is calculated using the 2020 CKD-EPI creatinine equation. This equation utilizes serum creatinine, sex, and age as parameters. The creatinine assay has traceable calibration to isotope dilution-mass spectrometry. Refer to KDIGO guidelines for clinical interpretation. In patients with unstable renal function, e.g. those with acute kidney injury, the eGFR may not accurately reflect actual GFR. Performed By: #### 2 4323-8 ####[facility] LABCLIA [id number] [place] [address] Glucose [Mass/Vol] 130 mg/dL High 74-99 [facility] Comment on above: Order Comment: Alison mccain Type: BLOOD SPECIMENOrdering Facility: [facility] Address: [address] [place] [address] Result Comment: The [place] Diabetes Association (ADA) provides guidance for cutoff values for fasting glucose and random glucose. The ADA defines fasting as no caloric intake for at least 8 hours. Fasting plasma glucose results between 100 to 125 mg/dL indicate increased risk for diabetes (prediabetes).Fasting plasma glucose results greater than or equal to 126 mg/dL meet the criteria for diagnosis of diabetes. In the absence of unequivocal hyperglycemia, results should be confirmed by repeat testing. In a patient with classic symptoms of hyperglycemia or hyperglycemic crisis, random plasma glucose results greater than or equal to 200 mg/dL meet the criteria for diagnosis of diabetes.Reference: Standards of Medical Care in Diabetes 2016, Canadian Diabetes Association. Diabetes Care. 2016.39(Suppl 1). Performed By: #### 2 4323-8 ####[facility] LABCLIA [id number] [place] [address] Potassium [Moles/Vol] 4.2 mmol/L Normal 3.7-5.1 [facility] Comment on above: Order Comment: Speci men Type: BLOOD SPECIMENOrdering Facility: [facility] Address: [address] [place] [address] Performed By: #### 2 4323-8 ####[facility] LABCLIA [id number] [place] [address] Protein [Mass/Vol] 6.4 g/dL Normal 6.3-8.0 [facility] Comment on above: Order Comment: Speci men Type: BLOOD SPECIMENOrdering Facility: [facility] Address: [address] [place] [address] Performed By: #### 2 4323-8 ####[facility] LABCLIA [id number] [place] [address] Sodium [Moles/Vol] 146 mmol/L High 136-144 [facility] Comment on above: Order Comment: Speci men Type: BLOOD SPECIMENOrdering Facility: [facility] Address: [address] [place] [address] Performed By: #### 2 4323-8 ####[facility] LABCLIA [id number] [place] [address] Urea nitrogen [Mass/Vol] 21 mg/dL Normal 7-21 [facility] Comment on above: Order Comment: Speci men Type: BLOOD SPECIMENOrdering Facility: [facility] Address: [address] [place] [address] Performed By: #### 2 4323-8 ####[facility] LABCLIA [id number] [place] [address] Albumin [Mass/Vol] 4.1 g/dL 3.9 - 4.9 g/dL [facility] ALP [Catalytic activity/Vol] 117 U/L 34 - 123 U/L [facility] ALT [Catalytic activity/Vol] 32 U/L 7 - 38 U/L [facility] Anion gap [Moles/Vol] 11 mmol/L 9 - 18 mmol/L [facility] AST [Catalytic activity/Vol] 17 U/L 13 - 35 U/L [facility] Bilirubin [Mass/Vol] 0.8 mg/dL 0.2 - 1 .3 mg/dL [facility] Calcium [Mass/Vol] 9.5 mg/dL 8.5 - 10. 2 mg/dL [facility] Chloride [Moles/Vol] 108 mmol/L High 97 - 10 5 mmol/L [facility] CO2 [Moles/Vol] 27 mmol/L 22 - 30 mmol/L [facility] Creatinine [Mass/Vol] 1.01 mg/dL High 0.58 - 0.96 mg/dL [facility] Estimated Glomerular Filtration Rate 61 mL/min/1.73m >=60 mL/min/1.7 3m [facility] Glucose [Mass/Vol] 130 mg/dL High 74 - 99 mg/dL [facility] Potassium [Moles/Vol] 4.2 mmol/L 3.7 - 5.1 mmol/L [facility] Protein [Mass/Vol] 6.4 g/dL 6.3 - 8.0 g/dL [facility] Sodium [Moles/Vol] 146 mmol/L High 136 - 144 mmol/L [facility] Urea nitrogen [Mass/Vol] 21 mg/dL 7 - 21 mg/dL [facility] 10-14-2023 CNPN Normal [facility] 10-11-20[facility] 10-10-[address] [facility] ANES POSTPROC EVALon 024 ANES POSTPROC EVAL HNO ID: [id number] Author: VIRGILIO BALDWIN MD Service: Anesthesiology Author Type: Physician Type: Anesthesia Postprocedure Evaluation Filed: 09/27/2023 14:47 Note Text: POST ANESTHESIA EVALUATION NOTE : 1955 Procedure Summary Date: 09/27/23 Room / Location: IR01 / IR Anesthesia Start: 1323 Anesthesia Stop: 1445 Procedure: INSERTION PORT VENOUS ACCESS ADULT (Pending) Diagnosis: Invasive lobular carcinoma of breast in female (HCC) (Invasive lobular carcinoma of breast in female (HCC) [C50.919]) Surgeons: Hui Villafuerte MD Responsible Provider: Virgilio Baldwin MD Anesthesia Type: MAC ASA Status: 3 Anesthesia Type: MAC Last Vitals Vitals Value Taken Time BP 148/78 09/27/23 1440 Temp 36.1 ?C (97 ?F) 09/27/23 1432 Pulse 63 09/27/23 1447 Resp 13 09/27/23 1447 SpO2 99 % 09/27/23 1447 Vitals shown include unfiled device data. Post Anesthesia Patient Status Patient Evaluation: PACU. PACU/ICU Patient Condition: stable. Anticipated Disposition: phase 2 then home. Neurological Status: aware and responsive. Pulmonary Status: breathing comfortably on room air Airway Control: returned to baseline unsupported. Cardiovascular Status: stable. Pain Management: satisfactory to patient Postoperative Hydration: acceptable. Intraoperative Events: no significant anesthesia events Recommendation: continue current plan of care. Anesthesia Observations No Documentation SIGNATURE: Virgilio Baldwin MD PATIENT NAME: Minal Caputo DATE: September 27, 2023 TIME: 2:47 PM CSN: [id number] [facility] ANES PRE-OPon 09-27-2023 ANES PRE-OP HNO ID: [id number] Author: VIRGILIO BALDWIN MD Service: Anesthesiology Author Type: Physician Type: Anesthesia Preprocedure Evaluation Filed: 09/27/2023 12:47 Note Text: ANESTHESIOLOGY DAY OF SURGERY NOTE : 1955 Procedure Information Date/Time: 09/27/23 1300 Procedure: INSERTION PORT VENOUS ACCESS ADULT (Pending) Location: AV IR01 / AV IR Surgeons: Hui Villafuerte MD Estimated body mass index is 50.12 kg/m? as calculated from the following: Height as of this encounter: 157.5 cm (5' 2 ). Weight as of this encounter: 124.3 kg (274 lb). Most recent hematocrit and potassium results: Hematocrit 46.1 09/20/2023 Potassium 4.2 09/20/2023 Relevant Problems CARDIO (+) [place] (dyspnea on exertion) (+) Primary hypertension (+) Undiagnosed cardiac murmurs GI (+) GERD (gastroesophageal reflux disease) PULMONARY (+) COPD (chronic obstructive pulmonary disease) ([facility]) (+) [place] (dyspnea on exertion) Other (+) Arthritis of both knees (+) RA (rheumatoid arthritis) ([facility]) I - PHYSICAL EVALUATION AIRWAY Patient intubated: No. Tracheostomy tube not present Mallampati: II. TM distance: >3 FB. Neck ROM: full. Mouth opening: adequate. Short neck: no. Thick neck: no Beltran present: no DENTAL Normal dental observations. Dental findings: teeth intact. Additional exam findings: no II - ANESTHESIA PLAN ASA Score: 3 Anesthetic Plan: MAC NPO Status: adequate Beta Rajan Monitoring Plan Monitoring plan: Standard ASA. Post Procedure Analgesic Plan Postoperative analgesic plan: parenteral or oral opioids. Informed Consent Anesthetic risks, benefits, alternatives, personnel and consent discussed: yes. Patient / Responsible [employer] Party agrees to proceed: yes Patient / Surrogate agrees to blood products: blood products not planned Significant changes in the patient condition since the History and Physical, not otherwise documented in primary service progress note: no. Potential Anesthesia issues that may suggest increased risk of complications or contraindication to planned procedure: none. Vitals Value Taken Time BP 166/80 09/27/23 1242 Pulse 71 09/27/23 1242 Resp 16 09/27/23 1242 Temp 36.6 ?C (97.8 ?F) 09/27/23 1242 SpO2 97 % 09/27/23 1242 No current facility-administered medications on file as of 09/27/2023. Outpatient Medications as of 09/27/2023 Medication Sig - methotrexate 2.5 mg tablet Take 15 mg by mouth every Saturday. - folic acid 1 mg tablet Take 1 mg by mouth once daily. - losartan (COZAAR) 50 mg tablet Take 50 mg by mouth once daily. - esomeprazole magnesium (NEXIUM ORAL) Take 20 mg by mouth once daily. - furosemide (LASIX) 40 mg tablet Take 40 mg by mouth once daily. - METOPROLOL 100 MG TAB Take 50 mg by mouth two times a day. - [] acetaminophen (TYLENOL) 325 mg tablet Take 2 tablets by mouth every 6 hours for 5 days, THEN 2 tablets every 6 hours as needed for pain for up to 14 days. - atorvastatin (LIPITOR) 20 mg tablet Take 1 tablet by mouth once daily. - MULTIVITAMIN ORAL Take 1 Dose by mouth once daily. - potassium chloride (K-TAB) 10 mEq tablet Take 10 mEq by mouth once daily. I have interviewed and examined the patient. I have reviewed the medical record and/or the pre-anesthesia evaluation, pertinent labs, and test results. This contains updated information obtained within 48 hours of Surgery/Procedure. SIGNATURE: Virgilio Baldwin MD PATIENT NAME: Minal Caputo DATE: September 27, 2023 TIME: 12:47 PM CSN: [id number] [facility] CNPNon 09-27-2023 [facility] IR FLU GD ALE CVA PLACEon IR FLU GD ALE CVA PLACE * * *Final Report* * * DATE OF EXAM: Sep 27 2023 2:31PM [facility] 7444 - IR FLU GD ALE CVA PLACE / PROCEDURE REASON: breast cancer * * * * Physician Interpretation * * * * PROCEDURE: PORTED CATHETER INSERTION HISTORY: Left breast cancer; s/p resection. Needs this for chemotherapy CONSENT: Risks, benefits, treatment options, potential complications and personnel to be involved were discussed (including the risks of radiation exposure, contrast and anesthesia administration, and any equipment needed for the procedure to ensure best possible outcome) with the patient and all questions were answered and consent was obtained prior to procedure. MEDICATION RECONCILIATION: The patient's medications and allergies were reviewed in the electronic medical record and reconciled to the proposed procedure/treatment. SWATHI-PROCEDURE DISCUSSION: The appropriate elements of the pre-procedure discussion, safety check list and sign-out were performed. TIME OUT: A time out was performed immediately prior to procedure start with the nursing, and interventional team, correctly identifying the name, date of , procedure, anatomy (including marking of site and side if applicable), patient position, procedure consent form, relevant diagnostic and radiology test results, antibiotic administration if applicable, safety precautions, and procedure-specific equipment needs. Start of procedure: 1359 End of procedure: 1420 Patient position: Supine Anesthesia: MAC Intra-service time (monitoring for moderate sedation): MAC minutes Patient monitoring: MAC Local anesthesia: 2 % lidocaine ANTIBIOTICS: Ancef Antibiotic infusion start time: 1340 CONTRAST DOSE: None IMAGE GUIDANCE: Fluoroscopic and sonographic guidance was used. Ultrasound demonstrated patency of the target vein without filling defects. Access was obtained under direct sonographic visualization. A sonographic image of the vessel was obtained and placed into the permanent archive for documentation. FLUOROSCOPIC RADIATION SUMMARY: Plane A, Air Kerma: 11.0 mGy Dose Area Product (DAP): Fluoro Time: 0:36 min:sec Radiation dose exceed 5 Gy: No If radiation dose exceeded 5 Gy, was counseling and instructional brochure provided: N/A TECHNIQUE: The patient was prepped and draped using all elements of maximal sterile barrier technique (cap, mask, sterile gown, sterile gloves, a large sterile sheet, hand hygiene and cutaneous antisepsis), sterile ultrasound gel and sterile ultrasound probe covers. Sponge counts were made. After local anesthesia, access was obtained into the vein using a 21 G needle micropuncture set. Needle was exchanged over guide wire for a peel away sheath. Small incision and pocket was made for the reservoir. Hemostasis was obtained using gauze. The catheter was tunneled to the venous access site from the pocket. The catheter was trimmed to appropriate length and placed through the peel away sheath under fluoroscopic guidance. The catheter was connected to the reservoir. The reservoir was placed into the pocket and secured with absorbable sutures. The port was accessed and demonstrated good blood draw and flush. The port was flushed with saline without heparin. The pocket incision was closed with interrupted absorbable sutures and absorbable subcuticular suture. Exofin was used to close the skin and dressing was applied. Sponge count was verified and all sponge were accounted. [facility] Central Line Insertion checklist, attached to the Central Line-Associated Bloodstream Infection Prevention Policy, was utilized during this procedure. RESULT: Ultrasound demonstrated patency of the chosen vein. Tip of the catheter terminated in the distal superior vena cava-right atrial junction. ACCESS: Right internal jugular vein INDWELLING DEVICE: 8 F PowerPort by [employer] (distal valved) silicone catheter with pressure injectable titanium port. This catheter requires normal saline flushes. Recommend flush interval of 90 days when not being used. The patient tolerated the procedure well. There were no significant complications and no other complications during the procedure. CONCLUSION: The patient was comfortable and was transferred to the recovery room in stable condition. Estimated Blood Loss: Minimal Number and Type of Removed Specimens: None ATTENDING RADIOLOGIST: Hui Villafuerte M.D. FLOOR COVERING INSTALLER: None The procedure was performed by the: attending radiologist, without an life science research assistant. The attending radiologist performed the following procedural activities: Entire procedure IMPRESSION: SUCCESSFUL PLACEMENT OF PORTED CATHETER VIA RIGHT IJV. THE CATHETER IS READY FOR USE. PLEASE NOTE: This catheter requires normal saline flushes. Recommend flush interval of 90 days when not being used. Dance Coach: BEA Transcribe Date/Time: Sep 27 2023 2:34P Dictated b (more content not included)... Normal [facility] IR PORTOCATH PLACEMENTon IR PORTOCATH PLACEMENT * * *Final Report* * * DATE OF EXAM: Sep 27 2023 2:31PM [facility] 8966 - IR PORTOCATH PLACEMENT / PROCEDURE REASON: breast cancer * * * * Physician Interpretation * * * * PROCEDURE: PORTED CATHETER INSERTION HISTORY: Left breast cancer; s/p resection. Needs this for chemotherapy CONSENT: Risks, benefits, treatment options, potential complications and personnel to be involved were discussed (including the risks of radiation exposure, contrast and anesthesia administration, and any equipment needed for the procedure to ensure best possible outcome) with the patient and all questions were answered and consent was obtained prior to procedure. MEDICATION RECONCILIATION: The patient's medications and allergies were reviewed in the electronic medical record and reconciled to the proposed procedure/treatment. SWATHI-PROCEDURE DISCUSSION: The appropriate elements of the pre-procedure discussion, safety check list and sign-out were performed. TIME OUT: A time out was performed immediately prior to procedure start with the nursing, and interventional team, correctly identifying the name, date of , procedure, anatomy (including marking of site and side if applicable), patient position, procedure consent form, relevant diagnostic and radiology test results, antibiotic administration if applicable, safety precautions, and procedure-specific equipment needs. Start of procedure: 1359 End of procedure: 1420 Patient position: Supine Anesthesia: MAC Intra-service time (monitoring for moderate sedation): MAC minutes Patient monitoring: MAC Local anesthesia: 2 % lidocaine ANTIBIOTICS: Ancef Antibiotic infusion start time: 1340 CONTRAST DOSE: None IMAGE GUIDANCE: Fluoroscopic and sonographic guidance was used. Ultrasound demonstrated patency of the target vein without filling defects. Access was obtained under direct sonographic visualization. A sonographic image of the vessel was obtained and placed into the permanent archive for documentation. FLUOROSCOPIC RADIATION SUMMARY: Plane A, Air Kerma: 11.0 mGy Dose Area Product (DAP): Fluoro Time: 0:36 min:sec Radiation dose exceed 5 Gy: No If radiation dose exceeded 5 Gy, was counseling and instructional brochure provided: N/A TECHNIQUE: The patient was prepped and draped using all elements of maximal sterile barrier technique (cap, mask, sterile gown, sterile gloves, a large sterile sheet, hand hygiene and cutaneous antisepsis), sterile ultrasound gel and sterile ultrasound probe covers. Sponge counts were made. After local anesthesia, access was obtained into the vein using a 21 G needle micropuncture set. Needle was exchanged over guide wire for a peel away sheath. Small incision and pocket was made for the reservoir. Hemostasis was obtained using gauze. The catheter was tunneled to the venous access site from the pocket. The catheter was trimmed to appropriate length and placed through the peel away sheath under fluoroscopic guidance. The catheter was connected to the reservoir. The reservoir was placed into the pocket and secured with absorbable sutures. The port was accessed and demonstrated good blood draw and flush. The port was flushed with saline without heparin. The pocket incision was closed with interrupted absorbable sutures and absorbable subcuticular suture. Exofin was used to close the skin and dressing was applied. Sponge count was verified and all sponge were accounted. [facility] Central Line Insertion checklist, attached to the Central Line-Associated Bloodstream Infection Prevention Policy, was utilized during this procedure. RESULT: Ultrasound demonstrated patency of the chosen vein. Tip of the catheter terminated in the distal superior vena cava-right atrial junction. ACCESS: Right internal jugular vein INDWELLING DEVICE: 8 F PowerPort by [employer] - [facility] (distal valved) silicone catheter with pressure injectable titanium port. This catheter requires normal saline flushes. Recommend flush interval of 90 days when not being used. The patient tolerated the procedure well. There were no significant complications and no other complications during the procedure. CONCLUSION: The patient was comfortable and was transferred to the recovery room in stable condition. Estimated Blood Loss: Minimal Number and Type of Removed Specimens: None ATTENDING RADIOLOGIST: Hui Villafuerte M.D. FLOOR COVERING INSTALLER: None The procedure was performed by the: attending radiologist, without an life science research assistant. The attending radiologist performed the following procedural activities: Entire procedure IMPRESSION: SUCCESSFUL PLACEMENT OF PORTED CATHETER VIA RIGHT IJV. THE CATHETER IS READY FOR USE. PLEASE NOTE: This catheter requires normal saline flushes. Recommend flush interval of 90 days when not being used. Dance Coach: BEA Transcribe Date/Time: Sep 27 2023 2:34P Dictated by (more content not included)... [facility] IR US VASCULAR ACCESS GUIDEo n 09-27-2023 IR US VASCULAR ACCESS GUIDE * * *Final Report* * * DATE OF EXAM: Sep 27 2023 2:31PM [facility] 7765 - IR US VASCULAR ACCESS GUIDE / PROCEDURE REASON: breast cancer * * * * Physician Interpretation * * * * PROCEDURE: PORTED CATHETER INSERTION HISTORY: Left breast cancer; s/p resection. Needs this for chemotherapy CONSENT: Risks, benefits, treatment options, potential complications and personnel to be involved were discussed (including the risks of radiation exposure, contrast and anesthesia administration, and any equipment needed for the procedure to ensure best possible outcome) with the patient and all questions were answered and consent was obtained prior to procedure. MEDICATION RECONCILIATION: The patient's medications and allergies were reviewed in the electronic medical record and reconciled to the proposed procedure/treatment. SWATHI-PROCEDURE DISCUSSION: The appropriate elements of the pre-procedure discussion, safety check list and sign-out were performed. TIME OUT: A time out was performed immediately prior to procedure start with the nursing, and interventional team, correctly identifying the name, date of , procedure, anatomy (including marking of site and side if applicable), patient position, procedure consent form, relevant diagnostic and radiology test results, antibiotic administration if applicable, safety precautions, and procedure-specific equipment needs. Start of procedure: 1359 End of procedure: 1420 Patient position: Supine Anesthesia: MAC Intra-service time (monitoring for moderate sedation): MAC minutes Patient monitoring: MAC Local anesthesia: 2 % lidocaine ANTIBIOTICS: Ancef Antibiotic infusion start time: 1340 CONTRAST DOSE: None IMAGE GUIDANCE: Fluoroscopic and sonographic guidance was used. Ultrasound demonstrated patency of the target vein without filling defects. Access was obtained under direct sonographic visualization. A sonographic image of the vessel was obtained and placed into the permanent archive for documentation. FLUOROSCOPIC RADIATION SUMMARY: Plane A, Air Kerma: 11.0 mGy Dose Area Product (DAP): Fluoro Time: 0:36 min:sec Radiation dose exceed 5 Gy: No If radiation dose exceeded 5 Gy, was counseling and instructional brochure provided: N/A TECHNIQUE: The patient was prepped and draped using all elements of maximal sterile barrier technique (cap, mask, sterile gown, sterile gloves, a large sterile sheet, hand hygiene and cutaneous antisepsis), sterile ultrasound gel and sterile ultrasound probe covers. Sponge counts were made. After local anesthesia, access was obtained into the vein using a 21 G needle micropuncture set. Needle was exchanged over guide wire for a peel away sheath. Small incision and pocket was made for the reservoir. Hemostasis was obtained using gauze. The catheter was tunneled to the venous access site from the pocket. The catheter was trimmed to appropriate length and placed through the peel away sheath under fluoroscopic guidance. The catheter was connected to the reservoir. The reservoir was placed into the pocket and secured with absorbable sutures. The port was accessed and demonstrated good blood draw and flush. The port was flushed with saline without heparin. The pocket incision was closed with interrupted absorbable sutures and absorbable subcuticular suture. Exofin was used to close the skin and dressing was applied. Sponge count was verified and all sponge were accounted. [facility] Central Line Insertion checklist, attached to the Central Line-Associated Bloodstream Infection Prevention Policy, was utilized during this procedure. RESULT: Ultrasound demonstrated patency of the chosen vein. Tip of the catheter terminated in the distal superior vena cava-right atrial junction. ACCESS: Right internal jugular vein INDWELLING DEVICE: 8 F PowerPort by [employer] [place] (distal valved) silicone catheter with pressure injectable titanium port. This catheter requires normal saline flushes. Recommend flush interval of 90 days when not being used. The patient tolerated the procedure well. There were no significant complications and no other complications during the procedure. CONCLUSION: The patient was comfortable and was transferred to the recovery room in stable condition. Estimated Blood Loss: Minimal Number and Type of Removed Specimens: None ATTENDING RADIOLOGIST: Hui Villafuerte M.D. FLOOR COVERING INSTALLER: None The procedure was performed by the: attending radiologist, without an life science research assistant. The attending radiologist performed the following procedural activities: Entire procedure IMPRESSION: SUCCESSFUL PLACEMENT OF PORTED CATHETER VIA RIGHT IJV. THE CATHETER IS READY FOR USE. PLEASE NOTE: This catheter requires normal saline flushes. Recommend flush interval of 90 days when not being used. Dance Coach: PSCB Transcribe Date/Time: Sep 27 2023 2:34P Dictat (more content not included)... Normal [facility] HISTORY PHYSICALon HISTORY PHYSICAL Normal [facility] CNNURSEon 09-24-2023 CNNURSE Normal [facility] CNPNon 09-23-2023 CNPN Telephone (AVXRPR) -- MINAL CAPUTO ([id number]) 1955 F Date Time Provider Department 09/23/23 MASTER CROWLEY AVXRPR During your visit today, we recorded the following information about you: Master Crowley RN 09/23/2023 12:22 PM Signed You are scheduled for a Mediport Placement, On 09/27/2023. You are to arrive at 12:00 pm and Report to [facility]: Enter through [facility] entrance. Proceed to the 2nd floor Surgical Services Desk for check in. Diet: Do not eat any solid food after MIDNIGHT the day of/night before your procedure. You may drink clear liquids until 11:00 am, which means black coffee, apple juice, black tea, or water only. Medications: Ok to take your cardiac, blood pressure, anti-seizure, and chronic pain medications with a sip of water, please take prior to arrival. Bring your current medication list. Labs: Lab-work needs to be drawn? No. Roadability Machine Operator/Transportation: How will you be arriving for your procedure? Private car. You will need a responsible adult to accompany you to and from the procedure. Your interstate bus driver is required to stay with you until you are taken into the procedure room. If you have any questions please call [phone] Allergies As of Date: 09/23/2023 Noted Allergy Reaction FENTANYL 04/01/2018 5 - Intolerance Comments: Drop in RR and drop in pulse ox to 70% ADHESIVE TAPE-SILICONES 07/29/2023 2 - Rash SULFA (SULFONAMIDE ANTIBIOTICS) 03/08/2007 16 - Unknown Date Reviewed: 09/20/2023 Reviewed by: Jackelyn Beavers MA - Fully Assessed Reason for Visit: Radiology Pre Procedure Instructions [1506] Prescriptions as of 09/23/2023 - methotrexate 2.5 mg tablet Take 2.5 mg by mouth six times a week. - letrozole (FEMARA) 2.5 mg tablet Take 1 tablet by mouth once daily. - folic acid 1 mg tablet Take 1 mg by mouth once daily. - atorvastatin (LIPITOR) 20 mg tablet Take 1 tablet by mouth once daily. - losartan (COZAAR) 50 mg tablet Take 50 mg by mouth once daily. - esomeprazole magnesium (NEXIUM ORAL) Take 20 mg by mouth once daily. - furosemide (LASIX) 40 mg tablet Take 40 mg by mouth once daily. 80 mg every other day. - MULTIVITAMIN ORAL Take by mouth. - potassium chloride (K-TAB) 10 mEq tablet Take 10 mEq by mouth twice daily. - METOPROLOL 100 MG TAB Take one(1) tablet daily. Problem List As Of Date 09/23/2023 Noted Resolved SPINAL STENOSIS NOS [M48.00] Mixed hyperlipidemia [E78.2] Obesity, unspecified [E66.9] UNDIAGNOSED CARDIAC MURMURS [R01.1] 05/06/2007 ASA CLASS II [1001] 05/06/2007 Disorder of mitral valve [I05.9] 05/08/2007 Idiopathic scoliosis and kyphoscoliosis [M41.20]12/16/2007 Primary osteoarthritis of both knees [M17.0] 12/23/2017 Morbid obesity (HCC) [E66.01] 12/23/2017 Arthritis of both knees [M17.0] 02/24/2018 OA (osteoarthritis) of knee [M17.9] 03/31/2018 Acute post-operative pain [G89.18] 04/21/2018 S/P TKR (total knee replacement) using cement, *04/21/2018 H/O total knee replacement, bilateral [Z96.653] 05/19/2018 AF (paroxysmal atrial fibrillation) (HCC) [I48.*12/08/2021 03/14/2022 Right arm weakness [R29.898] 03/14/2022 Atrial tachycardia, paroxysmal (HCC) [I47.19] 03/14/2022 02/05/2023 Hypertensive urgency [I16.0] 03/14/2022 03/15/2022 COPD (chronic obstructive pulmonary disease) (H*03/14/2022 GERD (gastroesophageal reflux disease) [K21.9] 03/14/2022 Primary hypertension [I10] 01/31/2023 [place]ERSON (dyspnea on exertion) [R06.09] 01/31/2023 Edema [R60.9] 01/31/2023 Palpitations [R00.2] 02/05/2023 Invasive lobular carcinoma of breast in female *07/23/2023 RA (rheumatoid arthritis) (HCC) [M06.9] 07/26/2023 Obesity, Class III, BMI >= 40 [E66.01] 07/29/2023 Encounter Status:Closed by MASTER CROWLEY on 09/23/23 [facility] CNPN Normal [facility] CBC W Auto Differential pane l (Bld)on 09-20-2023 Basophils (Bld) [#/Vol] 0.04 10*3/uL Normal <0.11 [facility] Comment on above: Order Comment: Alison mccain Type: BLOOD SPECIMEN Ordering Facility: [facility] Address: [address] [place] [address] Performed By: #### 5 7021-8 #### [facility] CLIA [id number] [address] [place] [address] [place] Basophils/100 WBC (Bld) 0.5 % Normal [facility] Comment on above: Order Comment: Alison mccain Type: BLOOD SPECIMEN Ordering Facility: [facility] Address: [address] [place] [address] Performed By: #### 5 7021-8 #### [facility] CLIA [id number] [address] [place] [address] [place] Differential cell count method Nom (Bld) Auto Normal [facility] Comment on above: Order Comment: Speci men Type: BLOOD SPECIMEN Ordering Facility: [facility] Address: [address] [place] [address] Performed By: #### 5 7021-8 #### [facility] CLIA [id number] [address] [place] [address] [place] Eosinophils (Bld) [#/Vol] 0.28 10*3/uL Normal <0.46 [facility] Comment on above: Order Comment: Speci men Type: BLOOD SPECIMEN Ordering Facility: [facility] Address: [address] [place] [address] Performed By: #### 5 7021-8 #### [facility] CLIA [id number] [address] [place] [address] [place] Eosinophils/100 WBC (Bld) 3.7 % Normal [facility] Comment on above: Order Comment: Speci men Type: BLOOD SPECIMEN Ordering Facility: [facility] Address: [address] [place] [address] Performed By: #### 5 7021-8 #### [facility] CLIA [id number] [address] [place] [address] [place] Erythrocyte distribution width (RBC) [Ratio] 14.1 % Normal 11.5-15.0 [facility] Comment on above: Order Comment: Speci men Type: BLOOD SPECIMEN Ordering Facility: [facility] Address: [address] [place] [address] Performed By: #### 5 7021-8 #### [facility] CLIA [id number] [address] [place] [address] [place] Hematocrit (Bld) [Volume fraction] 46.1 % High 36.0-46.0 [facility] Comment on above: Order Comment: Speci men Type: BLOOD SPECIMEN Ordering Facility: [facility] Address: [address] [place] [address] Performed By: #### 5 7021-8 #### [facility] CLIA [id number] [address] [place] [address] [place] Hemoglobin (Bld) [Mass/Vol] 14.8 g/dL Normal 11.5-15.5 [facility] Comment on above: Order Comment: Speci men Type: BLOOD SPECIMEN Ordering Facility: [facility] Address: [address] [place] [address] Performed By: #### 5 7021-8 #### [facility] CLIA [id number] [address] [place] [address] [place] Immature granulocytes (Bld) [#/Vol] 0.04 10*3/uL Normal <0.10 [facility] Comment on above: Order Comment: Speci men Type: BLOOD SPECIMEN Ordering Facility: [facility] Address: [address] [place] [address] Performed By: #### 5 7021-8 #### [facility] CLIA [id number] [address] [place] [address] [place] Immature granulocytes/100 WBC (Bld) 0.5 % Normal [facility] Comment on above: Order Comment: Speci men Type: BLOOD SPECIMEN Ordering Facility: [facility] Address: [address] [place] [address] Performed By: #### 5 7021-8 #### [facility] CLIA [id number] [address] [place] [address] [place] Lymphocytes (Bld) [#/Vol] 1.63 10*3/uL Normal 1.00-4.00 [facility] Comment on above: Order Comment: Speci men Type: BLOOD SPECIMEN Ordering Facility: [facility] Address: [address] [place] [address] Performed By: #### 5 7021-8 #### [facility] CLIA [id number] [address] [place] [address] [place] Lymphocytes/100 WBC (Bld) 21.4 % Normal [facility] Comment on above: Order Comment: Speci men Type: BLOOD SPECIMEN Ordering Facility: [facility] Address: [address] [place] [address] Performed By: #### 5 7021-8 #### [facility] CLIA [id number] [address] [place] [address] [place] MCH (RBC) [Entitic mass] 31.1 pg Normal 26.0-34.0 [facility] Comment on above: Order Comment: Speci men Type: BLOOD SPECIMEN Ordering Facility: [facility] Address: [address] [place] [address] Performed By: #### 5 7021-8 #### [facility] CLIA [id number] [address] [place] [address] [place] MCHC (RBC) [Mass/Vol] 32.1 g/dL Normal 30.5-36.0 [facility] Comment on above: Order Comment: Speci men Type: BLOOD SPECIMEN Ordering Facility: [facility] Address: [address] [place] [address] Performed By: #### 5 7021-8 #### [facility] CLIA [id number] [address] [place] [address] [place] MCV (RBC) [Entitic vol] 96.8 fL Normal 80.0-100.0 [facility] Comment on above: Order Comment: Speci men Type: BLOOD SPECIMEN Ordering Facility: [facility] Address: [address] [place] [address] Performed By: #### 5 7021-8 #### [facility] CLIA [id number] [address] [place] [address] [place] Monocytes (Bld) [#/Vol] 0.52 10*3/uL Normal <0.87 [facility] Comment on above: Order Comment: Speci men Type: BLOOD SPECIMEN Ordering Facility: [facility] Address: [address] [place] [address] Performed By: #### 5 7021-8 #### [facility] CLIA [id number] [address] [place] [address] [place] Monocytes/100 WBC (Bld) 6.8 % Normal [facility] Comment on above: Order Comment: Speci men Type: BLOOD SPECIMEN Ordering Facility: [facility] Address: [address] [place] [address] Performed By: #### 5 7021-8 #### [facility] CLIA [id number] [address] [place] [address] [place] Neutrophils (Bld) [#/Vol] 5.11 10*3/uL Normal 1.45-7.50 [facility] Comment on above: Order Comment: Speci men Type: BLOOD SPECIMEN Ordering Facility: [facility] Address: [address] [place] [address] Performed By: #### 5 7021-8 #### [facility] CLIA [id number] [address] [place] [address] [place] Neutrophils/100 WBC (Bld) 67.1 % Normal [facility] Comment on above: Order Comment: Speci men Type: BLOOD SPECIMEN Ordering Facility: [facility] Address: [address] [place] [address] Performed By: #### 5 7021-8 #### [facility] CLIA [id number] [address] [place] [address] [place] Nucleated RBC (Bld) [#/Vol] 10*3/uL Normal <0.01 [facility] Comment on above: Order Comment: Speci men Type: BLOOD SPECIMEN Ordering Facility: [facility] Address: [address] [place] [address] Performed By: #### 5 7021-8 #### [facility] CLIA [id number] [address] [place] [address] [place] Nucleated RBC/100 WBC (Bld) [Ratio] 0.0 /100 WBC Normal [facility] Comment on above: Order Comment: Speci men Type: BLOOD SPECIMEN Ordering Facility: [facility] Address: [facility] [place] [address] Performed By: #### 5 7021-8 #### [facility] CLIA [id number] [address] [place] [address] [place] Platelet mean volume (Bld) [Entitic vol] 10.2 fL Normal 9.0-12.7 [facility] Comment on above: Order Comment: Speci men Type: BLOOD SPECIMEN Ordering Facility: [facility] Address: [address] [place] [address] Performed By: #### 5 7021-8 #### [facility] CLIA [id number] [address] [place] [address] [place] Platelets (Bld) [#/Vol] 304 10*3/uL Normal 150-400 [facility] Comment on above: Order Comment: Speci men Type: BLOOD SPECIMEN Ordering Facility: [facility] Address: [address] [place] [address] Performed By: #### 5 7021-8 #### [facility] CLIA [id number] [address] [place] [address] [place] RBC (Bld) [#/Vol] 4.76 10*6/uL Normal 3.90-5.20 [facility] Comment on above: Order Comment: Speci men Type: BLOOD SPECIMEN Ordering Facility: [facility] Address: [address] [place] [address] Performed By: #### 5 7021-8 #### [facility] CLIA [id number] [address] [place] [address] [place] WBC (Bld) [#/Vol] 7.62 10*3/uL Normal 3.70-11.00 [facility] Comment on above: Order Comment: Speci men Type: BLOOD SPECIMEN Ordering Facility: [facility] Address: [address] [place] [address] Performed By: #### 5 7021-8 #### [facility] CLIA [id number] [address] [place] [address] [place] CNOVon 09-20-2023 CNOV Office Visit ([facility] ) -- MINAL CAPUTO ([id number]) 1955 F Date Time Provider Department 09/20/23 11:00 AM GABBY URBINA During your visit today, we recorded the following information about you: Temperature 98.3 degrees Gabby Urbina MD 09/23/2023 10:48 AM Signed Plastic Surgery Note CC: Post op HPI: Minal is a 67 year old female, s/p: Date of Surgery: 09/04/2023 Surgery: Left axillary immediate lymphatic reconstruction with 2 lymphatics via an intussusception 0.4mm and 0.3 mm lymphatic into 1mm vein flow confirmed with milk test 22 modifier given the added complexity via the small size as well as surgical duration for these procedures as well as given the patient's body habitus. Adjacent tissue rearrangement left chest 34x4cm Time Postop: 16 days S: Pain control is good with medication. -Recording CASSIDY drain output x 1, more than 50 cc daily for 2 consecutive days. O: Left upper extremity w/ swelling, no evidence of hematoma or seroma Left breast incisions well approximated, no erythema, no drainage, no s/s of infection No symptoms or signs of infection Temp 36.8 ?C (98.3 ?F) (Temporal) LMP 08/26/2006 (Approximate) A/P: -Expected post operative course -Continue to record CASSIDY drain output. Criteria for removal is less than 20-25 cc daily for 2 consecutive days. -Shower regularly to keep the incisions clean and inspect for signs of infection. -Walking is encouraged, this helps reduce swelling and lowers the chance of blood clots. -Activity restrictions reviewed with patient. Okay to raise arm above head at 2 weeks if all drains have been removed and you do not have any wound healing issues. -No lifting/pushing/pulling greater than 10 lbs for 4 weeks after surgery. Do not perform construction assistant such as laundry and vacuuming. Do not perform yard work or gardening. -Continue to wear surgical bra for 6 weeks following surgery, okay for soft, front closing sports bra at 2 weeks. -No water submersion/baths until all incisions are fully healed, typically this takes 6 weeks. -Okay for tylenol alternating with ibuprofen for pain control (do not exceed 4 g tylenol in a 24 hour period, okay for ibuprofen 600-800 mg every 8 hours as needed for pain). -Okay for driving if you're not taking any narcotic pain medication and all drains have been removed and you feel you can safely maneuver a motor vehicle. -Okay to sleep on your back and lie flat, do not sleep on the surgical side 3-4 weeks after recent procedure. -Consult to lymphedema therapy placed. Please call [phone] to schedule, change, cancel or confirm an appointment. -Return to clinic in when CASSIDY drain meets criteria for removal, okay for home health to remove drain. -Follow up w/ Dr. Urbina in 4 weeks. -If experiencing wound complications or have any questions or concerns during business hours call [phone], option 3 or after hours (after 5 pm or on the weekend) call [phone] and ask for the plastic surgery resident / fellow director of physical education for further instructions. If you have increasing swelling or bruising, particularly one side greater than the other. If swelling and redness persists after a few days. If you have increased redness along the incision. If you have severe or increased pain not relieved by medication. If you have an oral temperature of 100.4 degrees or higher. If you have any yellow or greenish drainage from the incisions or notice a foul smell. If you have bleeding from the incisions that is difficult to control with light pressure. Clinically the patient is doing well. His drain does not quite meet criteria for removal. Will have the patient follow-up for drain removal or have this be removed by her home health team. Will begin referral to our lymphedema therapy team for observation management. Patient is no evidence of lymphedema at this time. However patient may benefit from a short duration of compression therapy to allow the lymphatic reconstruction to function. Patient can follow-up in 4 weeks. The patient is seen and examined by Dr. Urbina and the following reflects his service. Scribed by Elida Cordoba RN I agree with the Chief Complaint, ROS, and Past Histories independently gathered by the clinical support analyst and the remaining scribed note accurately describes my personal service to the patient. Referring Provider: BYRON JUNE [[id number]] Allergies As of Date: 09/20/2023 Noted Allergy Reaction FENTANYL 04/01/2018 5 - Intolerance Comments: Drop in RR and drop in pulse ox to 70% ADHESIVE TAPE-SILICONES 07/29/2023 2 - Rash SULFA (SULFONAMIDE ANTIBIOTICS) 03/08/2007 16 - Unknown Date Reviewed: 09/20/2023 Reviewed by: Jackelyn Beavers MA - Fully Assessed Reason for Visit: Post Op [174] Primary Visit Diagnosis:Lymphedema [I89.0] Other Visit (more content not included)... Normal [facility] CNPNon 09-20-2023 CNPN Normal [facility] metabolic 2000 panelon 09-20-2023 Albumin [Mass/Vol] 3.9 g/dL Normal 3.9-4.9 [facility] Comment on above: Order Comment: Speci men Type: BLOOD SPECIMEN Ordering Facility: [facility] Address: [address] [place] [address] Performed By: #### 2 4323-8 #### [facility] CLIA [id number] [address] [place] [address] [place] ALP [Catalytic activity/Vol] 124 U/L High 34-123 [facility] Comment on above: Order Comment: Speci men Type: BLOOD SPECIMEN Ordering Facility: [facility] Address: [address] [place] [address] Performed By: #### 2 4323-8 #### [facility] CLIA [id number] [address] [place] [address] [place] ALT [Catalytic activity/Vol] 37 U/L Normal 7-38 [facility] Comment on above: Order Comment: Speci men Type: BLOOD SPECIMEN Ordering Facility: [facility] Address: [address] [place] [address] Performed By: #### 2 4323-8 #### [facility] CLIA [id number] [address] [place] [address] [place] Anion gap [Moles/Vol] 17 mmol/L Normal 9-18 [facility] Comment on above: Order Comment: Speci men Type: BLOOD SPECIMEN Ordering Facility: [facility] Address: [address] [place] [address] Performed By: #### 2 4323-8 #### [facility] CLIA [id number] [address] [place] [address] [place] AST [Catalytic activity/Vol] 31 U/L Normal 13-35 [facility] Comment on above: Order Comment: Speci men Type: BLOOD SPECIMEN Ordering Facility: [facility] Address: [address] [place] [address] Performed By: #### 2 4323-8 #### [facility] CLIA [id number] [address] [place] [address] [place] Bilirubin [Mass/Vol] 0.4 mg/dL Normal 0.2-1.3 [facility] Comment on above: Order Comment: Speci men Type: BLOOD SPECIMEN Ordering Facility: [facility] Address: [address] [place] [address] Performed By: #### 2 4323-8 #### [facility] CLIA [id number] [address] [place] [address] [place] Calcium [Mass/Vol] 9.1 mg/dL Normal 8.5-10.2 [facility] Comment on above: Order Comment: Speci men Type: BLOOD SPECIMEN Ordering Facility: [facility] Address: [address] [place] [address] Performed By: #### 2 4323-8 #### [facility] CLIA [id number] [address] [place] [address] [place] Chloride [Moles/Vol] 104 mmol/L Normal 97-105 [facility] Comment on above: Order Comment: Speci men Type: BLOOD SPECIMEN Ordering Facility: [facility] Address: [address] [place] [address] Performed By: #### 2 4323-8 #### [facility] CLIA [id number] [address] [place] [address] [place] CO2 [Moles/Vol] 21 mmol/L Low 22-30 [facility] Comment on above: Order Comment: Speci men Type: BLOOD SPECIMEN Ordering Facility: [facility] Address: [address] [place] [address] Performed By: #### 2 4323-8 #### [facility] CLIA [id number] [address] [place] [address] [place] Creatinine [Mass/Vol] 0.82 mg/dL Normal 0.58-0.96 [facility] Comment on above: Order Comment: Alison mccain Type: BLOOD SPECIMEN Ordering Facility: [facility] Address: [address] [place] [address] Performed By: #### 2 4323-8 #### [facility] IA [id number] [address] [place] [address] [place] Creatinine and Glomerular filtration rate.predicted panel (S/P/Bld) 78 mL/min/1.73m??? Normal >=60 [facility] Comment on above: Order Comment: Alison mccain Type: BLOOD SPECIMEN Ordering Facility: [facility] Address: [address] [place] [address] Result Comment: [facility] Glomerular Filtration Rate (eGFR) is calculated using the 2020 CKD-EPI creatinine equation. This equation utilizes serum creatinine, sex, and age as parameters. The creatinine assay has traceable calibration to isotope dilution-mass spectrometry. Refer to KDIGO guidelines for clinical interpretation. In patients with unstable renal function, e.g. those with acute kidney injury, the eGFR may not accurately reflect actual GFR. Performed By: #### 2 4323-8 #### [facility] CLIA [id number] [address] [place] [address] [place] Glucose [Mass/Vol] 117 mg/dL High 74-99 [facility] Comment on above: Order Comment: Alison mccain Type: BLOOD SPECIMEN Ordering Facility: [facility] Address: [address] [place] [address] Result Comment: The Canadian Diabetes Association (ADA) provides guidance for cutoff values for fasting glucose and random glucose. The ADA defines fasting as no caloric intake for at least 8 hours. Fasting plasma glucose results between 100 to 125 mg/dL indicate increased risk for diabetes (prediabetes). Fasting plasma glucose results greater than or equal to 126 mg/dL meet the criteria for diagnosis of diabetes. In the absence of unequivocal hyperglycemia, results should be confirmed by repeat testing. In a patient with classic symptoms of hyperglycemia or hyperglycemic crisis, random plasma glucose results greater than or equal to 200 mg/dL meet the criteria for diagnosis of diabetes. Reference: Standards of Medical Care in Diabetes 2016, Canadian Diabetes Association. Diabetes Care. 2016.39(Suppl 1). Performed By: #### 2 4323-8 #### [facility] CLIA [id number] [address] [place] [address] [place] Potassium [Moles/Vol] 4.2 mmol/L Normal 3.7-5.1 [facility] Comment on above: Order Comment: Alison mccain Type: BLOOD SPECIMEN Ordering Facility: [facility] Address: [address] [place] [address] Performed By: #### 2 4323-8 #### [facility] CLIA [id number] [address] [place] [address] [place] Protein [Mass/Vol] 6.8 g/dL Normal 6.3-8.0 [facility] Comment on above: Order Comment: Alison mccain Type: BLOOD SPECIMEN Ordering Facility: [facility] Address: [address] [place] [address] Performed By: #### 2 4323-8 #### [facility] CLIA [id number] [address] [place] [address] [place] Sodium [Moles/Vol] 142 mmol/L Normal 136-144 [facility] Comment on above: Order Comment: Alison mccain Type: BLOOD SPECIMEN Ordering Facility: [facility] Address: [address] [place] [address] Performed By: #### 2 4323-8 #### [facility] CLIA [id number] [address] [place] [address] [place] Urea nitrogen [Mass/Vol] 9 mg/dL Normal 7-21 [facility] Comment on above: Order Comment: Alison mccain Type: BLOOD SPECIMEN Ordering Facility: [facility] Address: [address] [place] [address] Performed By: #### 2 4323-8 #### [facility] CLIA [id number] [address] [place] PT panel Coag (PPP)on 2023 INR Coag (PPP) [Relative time] 1.0 {INR} Normal 0.9-1.3 [facility] Comment on above: Order Comment: Alison mccain Type: BLOOD SPECIMEN Ordering Facility: [facility] Address: [address] [place] [address] Result Comment: Rosalinda min K Antagonist (VKA) Therapeutic Range: INR 2 to 3 (Target INR of 2.5) Note: For patients treated with VKA drugs, such as warfarin, the [employer] College [employer] 2012 Guideline recommends a therapeutic INR range of 2 to 3 (target INR of 2.5). This recommendation includes high-risk patients with antiphospholipid syndrome with previous arterial or venous thromboembolism, current-generation mechanical or bioprosthetic aortic heart valve replacement. Note: Patients with mechanical aortic valve replacement and additional risk factors for thromboembolic events (atrial fibrillation, previous thromboembolism, LV dysfunction, hypercoagulable conditions) or an older generation mechanical AVR (i.e., ball in-Cage) or any mechanical MVR should have a INR therapeutic range of 2.5 to 3.5 (target INR of 3). Mariusz GH, et al. Chest 2012, 141:7S-47S Tim RA, et al. [facility] 2017, 70: 252-289 Performed By: #### 3 4528-0 #### [facility] CLIA [id number] [address] [place] [address] [place] PT Coag (PPP) [Time] 10.9 s Normal 9.7-13.0 [facility] Comment on above: Order Comment: Alison mccain Type: BLOOD SPECIMEN Ordering Facility: [facility] Address: [address] [place] [address] Performed By: #### 3 4528-0 #### [facility] CLIA [id number] [address] [place] [address] [place] Natasha 09-19-2023 [facility] Telephone (AVXRPR) -- MINAL CAPUTO ([id number]) 1955 F Date Time Provider Department 09/19/23 [facility]BB[facility] JOLLY (RN) [facility] During your visit today, we recorded the following information about you: Abby Jolly RN 09/19/2023 1:27 PM Signed You are scheduled for a Port Placement, On 09/25/2023. You are to arrive at 1230 PM and Report to [facility]: Enter through [facility] entrance. Proceed to the 2nd floor Surgical Services Desk for check in. You can expect to be here for 4 hours. Diet: Do not eat any solid food after midnight the day of/night before your procedure. You may drink clear liquids until 1130 AM, which means black coffee, apple juice, black tea, or water only. Medications: Ok to take your cardiac, blood pressure, anti-seizure, and chronic pain medications with a sip of water, please take prior to arrival. Bring your current medication list. Special concerns: Do you have any attached medical devices? No Insulin pumps must be removed before entering the procedure room. Do you wear Neulasta Onpro? No. If yes, the device must be removed before entering the procedure room. Do you use CPAP or BPAP? No. Labs: Lab-work needs to be drawn? Yes, PT INR labs need to be drawn at least one day prior to procedure. Please bring a copy of the results if they are not done at a [facility] facility. . Roadability Machine Operator/Transportation: How will you be arriving for your procedure? Private car. If you have any questions, please call [phone] Allergies As of Date: 09/19/2023 Noted Allergy Reaction FENTANYL 04/01/2018 5 - Intolerance Comments: Drop in RR and drop in pulse ox to 70% ADHESIVE TAPE-SILICONES 07/29/2023 2 - Rash SULFA (SULFONAMIDE ANTIBIOTICS) 03/08/2007 16 - Unknown Date Reviewed: 09/17/2023 Reviewed by: Vannessa Liz MA - Fully Assessed Reason for Visit: Radiology Pre Procedure Instructions [1506] Prescriptions as of 09/19/2023 - acetaminophen (TYLENOL) 325 mg tablet Take 2 tablets by mouth every 6 hours for 5 days, THEN 2 tablets every 6 hours as needed for pain for up to 14 days. - methotrexate 2.5 mg tablet Take 2.5 mg by mouth six times a week. - letrozole (FEMARA) 2.5 mg tablet Take 1 tablet by mouth once daily. - folic acid 1 mg tablet Take 1 mg by mouth once daily. - atorvastatin (LIPITOR) 20 mg tablet Take 1 tablet by mouth once daily. - losartan (COZAAR) 50 mg tablet Take 50 mg by mouth once daily. - esomeprazole magnesium (NEXIUM ORAL) Take 20 mg by mouth once daily. - furosemide (LASIX) 40 mg tablet Take 40 mg by mouth once daily. 80 mg every other day. - MULTIVITAMIN ORAL Take by mouth. - potassium chloride (K-TAB) 10 mEq tablet Take 10 mEq by mouth twice daily. - METOPROLOL 100 MG TAB Take one(1) tablet daily. Problem List As Of Date 09/19/2023 Noted Resolved SPINAL STENOSIS NOS [M48.00] Mixed hyperlipidemia [E78.2] Obesity, unspecified [E66.9] UNDIAGNOSED CARDIAC MURMURS [R01.1] 05/06/2007 ASA CLASS II [1001] 05/06/2007 Disorder of mitral valve [I05.9] 05/08/2007 Idiopathic scoliosis and kyphoscoliosis [M41.20]12/16/2007 Primary osteoarthritis of both knees [M17.0] 12/23/2017 Morbid obesity (HCC) [E66.01] 12/23/2017 Arthritis of both knees [M17.0] 02/24/2018 OA (osteoarthritis) of knee [M17.9] 03/31/2018 Acute post-operative pain [G89.18] 04/21/2018 S/P TKR (total knee replacement) using cement, *04/21/2018 H/O total knee replacement, bilateral [Z96.653] 05/19/2018 AF (paroxysmal atrial fibrillation) (HCC) [I48.*12/08/2021 03/14/2022 Right arm weakness [R29.898] 03/14/2022 Atrial tachycardia, paroxysmal (HCC) [I47.19] 03/14/2022 02/05/2023 Hypertensive urgency [I16.0] 03/14/2022 03/15/2022 COPD (chronic obstructive pulmonary disease) (H*03/14/2022 GERD (gastroesophageal reflux disease) [K21.9] 03/14/2022 Primary hypertension [I10] 01/31/2023 [place]ERSON (dyspnea on exertion) [R06.09] 01/31/2023 Edema [R60.9] 01/31/2023 Palpitations [R00.2] 02/05/2023 Invasive lobular carcinoma of breast in female *07/23/2023 RA (rheumatoid arthritis) (HCC) [M06.9] 07/26/2023 Obesity, Class III, BMI >= 40 [E66.01] 07/29/2023 Encounter Status:Closed by ABBY [facility] CN[facility]SP[facility]-17-2023 CNOVSP [facility] CNPNon 09-17-2023 CNPN [facility] CNOVon 09-13-2023 CNOV [facility] CNOVSPon 09-13-2023 CNOVSP [facility] CNPNon 09-13-2023 [facility] Telephone (YADIRA) -- MINAL CAPUTO ([id number]) 1955 F Date Time Provider Department 09/13/23 STEVO OLIVA During your visit today, we recorded the following information about you: Stevo Oliva, ISELA 09/13/2023 1:42 PM Signed Was not able to leave a message her voice mail is not set up Allergies As of Date: 09/13/2023 Noted Allergy Reaction FENTANYL 04/01/2018 5 - Intolerance Comments: Drop in RR and drop in pulse ox to 70% ADHESIVE TAPE-SILICONES 07/29/2023 2 - Rash SULFA (SULFONAMIDE ANTIBIOTICS) 03/08/2007 16 - Unknown Date Reviewed: 09/13/2023 Reviewed by: Isadora Bowers LPN - Fully Assessed Reason for Visit: Post Op Follow Up [3947] Prescriptions as of 09/13/2023 - oxyCODONE IR (ROXICODONE) 5 mg immediate release tablet Take 1 tablet by mouth every 6 hours as needed for pain for up to 5 days. - acetaminophen (TYLENOL) 325 mg tablet Take 2 tablets by mouth every 6 hours for 5 days, THEN 2 tablets every 6 hours as needed for pain for up to 14 days. - ondansetron (ZOFRAN) 4 mg tablet Take 1 tablet by mouth every 8 hours as needed for nausea/vomiting. - methotrexate 2.5 mg tablet Take 2.5 mg by mouth six times a week. - letrozole (FEMARA) 2.5 mg tablet Take 1 tablet by mouth once daily. - folic acid 1 mg tablet Take 1 mg by mouth once daily. - naproxen (NAPROSYN) 500 mg tablet Take 1 tablet by mouth twice daily as needed. Take with food. - atorvastatin (LIPITOR) 20 mg tablet Take 1 tablet by mouth once daily. - losartan (COZAAR) 50 mg tablet Take 50 mg by mouth once daily. - esomeprazole magnesium (NEXIUM ORAL) Take 20 mg by mouth once daily. - furosemide (LASIX) 40 mg tablet Take 40 mg by mouth once daily. 80 mg every other day. - MULTIVITAMIN ORAL Take by mouth. - potassium chloride (K-TAB) 10 mEq tablet Take 10 mEq by mouth twice daily. - METOPROLOL 100 MG TAB Take one(1) tablet daily. Problem List As Of Date 09/13/2023 Noted Resolved SPINAL STENOSIS NOS [M48.00] Mixed hyperlipidemia [E78.2] Obesity, unspecified [E66.9] UNDIAGNOSED CARDIAC MURMURS [R01.1] 05/06/2007 ASA CLASS II [1001] 05/06/2007 Disorder of mitral valve [I05.9] 05/08/2007 Idiopathic scoliosis and kyphoscoliosis [M41.20]12/16/2007 Primary osteoarthritis of both knees [M17.0] 12/23/2017 Morbid obesity (HCC) [E66.01] 12/23/2017 Arthritis of both knees [M17.0] 02/24/2018 OA (osteoarthritis) of knee [M17.9] 03/31/2018 Acute post-operative pain [G89.18] 04/21/2018 S/P TKR (total knee replacement) using cement, *04/21/2018 H/O total knee replacement, bilateral [Z96.653] 05/19/2018 AF (paroxysmal atrial fibrillation) (HCC) [I48.*12/08/2021 03/14/2022 Right arm weakness [R29.898] 03/14/2022 Atrial tachycardia, paroxysmal (HCC) [I47.19] 03/14/2022 02/05/2023 Hypertensive urgency [I16.0] 03/14/2022 03/15/2022 COPD (chronic obstructive pulmonary disease) (H*03/14/2022 GERD (gastroesophageal reflux disease) [K21.9] 03/14/2022 Primary hypertension [I10] 01/31/2023 [place]ERSON (dyspnea on exertion) [R06.09] 01/31/2023 Edema [R60.9] 01/31/2023 Palpitations [R00.2] 02/05/2023 Invasive lobular carcinoma of breast in female *07/23/2023 RA (rheumatoid arthritis) (HCC) [M06.9] 07/26/2023 Obesity, Class III, BMI >= 40 [E66.01] 07/29/2023 Encounter Status:Closed by STEVO OLIVA on 09/13/23 [facility] Basic metabolic 2000 panelon 09-05-2023 Anion gap [Moles/Vol] 13 mmol/L Normal 9-18 [facility] Comment on above: Order Comment: Speci men Type: BLOOD SPECIMENOrdering Facility: [facility] Address: [address] [place] [address] Performed By: #### 2 4321-2 ####[facility] [id number] [facility] [address] [address] [place] Calcium [Mass/Vol] 8.7 mg/dL Normal 8.5-10.2 [facility] Comment on above: Order Comment: Speci men Type: BLOOD SPECIMENOrdering Facility: [facility] Address: [address] [place] [address] Performed By: #### 2 4321-2 ####[facility] [id number] [place] [address] [place] Chloride [Moles/Vol] 104 mmol/L Normal 97-105 [facility] Comment on above: Order Comment: Speci men Type: BLOOD SPECIMENOrdering Facility: [facility] Address: [address] [place] [address] Performed By: #### 2 4321-2 ####[facility] [id number] [place] [address] [place] CO2 [Moles/Vol] 24 mmol/L Normal 22-30 [facility] Comment on above: Order Comment: Speci men Type: BLOOD SPECIMENOrdering Facility: [facility] Address: [address] [place] [address] Performed By: #### 2 4321-2 ####[facility] [id number] [place] [address] [place] Creatinine [Mass/Vol] 1.04 mg/dL High 0.58-0.96 [facility] Comment on above: Order Comment: Speci men Type: BLOOD SPECIMENOrdering Facility: [facility] Address: [address] [place] [address] Performed By: #### 2 4321-2 ####[facility] [id number] [place] [address] [place] Creatinine and Glomerular filtration rate.predicted panel (S/P/Bld) 59 mL/min/1.73m??? Low >=60 [facility] Comment on above: Order Comment: Speci men Type: BLOOD SPECIMENOrdering Facility: [facility] Address: [address] [place] [address] Result Comment: Cristal [facility] Glomerular Filtration Rate (eGFR) is calculated using the 2020 CKD-EPI creatinine equation. This equation utilizes serum creatinine, sex, and age as parameters. The creatinine assay has traceable calibration to isotope dilution-mass spectrometry. Refer to KDIGO guidelines for clinical interpretation. In patients with unstable renal function, e.g. those with acute kidney injury, the eGFR may not accurately reflect actual GFR. Performed By: #### 2 4321-2 ####[facility] [id number] [place] [address] [place] Glucose [Mass/Vol] 169 mg/dL High 74-99 [facility] Comment on above: Order Comment: Alison mccain Type: BLOOD SPECIMENOrdering Facility: [facility] Address: [address] [place] [address] Result Comment: The Canadian Diabetes Association (ADA) provides guidance for cutoff values for fasting glucose and random glucose. The ADA defines fasting as no caloric intake for at least 8 hours. Fasting plasma glucose results between 100 to 125 mg/dL indicate increased risk for diabetes (prediabetes).Fasting plasma glucose results greater than or equal to 126 mg/dL meet the criteria for diagnosis of diabetes. In the absence of unequivocal hyperglycemia, results should be confirmed by repeat testing. In a patient with classic symptoms of hyperglycemia or hyperglycemic crisis, random plasma glucose results greater than or equal to 200 mg/dL meet the criteria for diagnosis of diabetes.Reference: Standards of Medical Care in Diabetes 2016, Canadian Diabetes Association. Diabetes Care. 2016.39(Suppl 1). Performed By: #### 2 4321-2 ####[facility] [id number] [place] [address] [place] Potassium [Moles/Vol] 4.2 mmol/L Normal 3.7-5.1 [facility] Comment on above: Order Comment: Speci men Type: BLOOD SPECIMENOrdering Facility: [facility] Address: [address] [place] [address] Performed By: #### 2 4321-2 ####[facility] [id number] [address] [address] [place] Sodium [Moles/Vol] 141 mmol/L Normal 136-144 [facility] Comment on above: Order Comment: Speci men Type: BLOOD SPECIMENOrdering Facility: [facility] Address: [address] [place] [address] Performed By: #### 2 4321-2 ####[facility] [id number] [place] [address] [place] Urea nitrogen [Mass/Vol] 17 mg/dL Normal 7-21 [facility] Comment on above: Order Comment: Speci men Type: BLOOD SPECIMENOrdering Facility: [facility] Address: [address] [place] [address] Performed By: #### 2 4321-2 ####[facility] LABIA [id number] [place] [address] [place] CBC panel Auto (Bld)on 09-05 Erythrocyte distribution width (RBC) [Ratio] 13.9 % Normal 11.5-15.0 [facility] Comment on above: Order Comment: Speci men Type: BLOOD SPECIMENOrdering Facility: [facility] Address: [address] [place] [address] Performed By: #### 5 8410-2 ####[facility] LABIA [id number] [place] [address] [place] Hematocrit (Bld) [Volume fraction] 39.4 % Normal 36.0-46.0 [facility] Comment on above: Order Comment: Speci men Type: BLOOD SPECIMENOrdering Facility: [facility] [facility] Address: [address] [place] [address] Performed By: #### 5 8410-2 ####[facility] LABCLIA [id number] [place] [address] [place] Hemoglobin (Bld) [Mass/Vol] 13.0 g/dL Normal 11.5-15.5 [facility] Comment on above: Order Comment: Speci men Type: BLOOD SPECIMENOrdering Facility: [facility] Address: [address] [place] [address] Performed By: #### 5 8410-2 ####[facility] LABIA [id number] [place] [address] [place] MCH (RBC) [Entitic mass] 31.0 pg Normal 26.0-34.0 [facility] Comment on above: Order Comment: Speci men Type: BLOOD SPECIMENOrdering Facility: [facility] Address: [address] [place] [address] Performed By: #### 5 8410-2 ####[facility] LABIA [id number] [place] [address] [place] MCHC (RBC) [Mass/Vol] 33.0 g/dL Normal 30.5-36.0 [facility] Comment on above: Order Comment: Speci men Type: BLOOD SPECIMENOrdering Facility: [facility] Address: [address] [place] [address] Performed By: #### 5 8410-2 ####[facility] [id number] [place] [address] [place] MCV (RBC) [Entitic vol] 93.8 fL Normal 80.0-100.0 [facility] Comment on above: Order Comment: Speci men Type: BLOOD SPECIMENOrdering Facility: [facility] Address: [address] [place] [address] Performed By: #### 5 8410-2 ####[facility] LABIA [id number] [place] [address] [place] Nucleated RBC (Bld) [#/Vol] 10*3/uL Normal <0.01 [facility] Comment on above: Order Comment: Speci men Type: BLOOD SPECIMENOrdering Facility: [facility] Address: [address] [place] [address] Performed By: #### 5 8410-2 ####[facility] LABIA [id number] [place] [address] [place] Platelet mean volume (Bld) [Entitic vol] 10.3 fL Normal 9.0-12.7 [facility] Comment on above: Order Comment: Speci men Type: BLOOD SPECIMENOrdering Facility: [facility] Address: [address] [place] [address] Performed By: #### 5 8410-2 ####[facility] LABCLIA [id number] [place] [address] [place] Platelets (Bld) [#/Vol] 276 10*3/uL Normal 150-400 [facility] Comment on above: Order Comment: Speci men Type: BLOOD SPECIMENOrdering Facility: [facility] Address: [address] [place] [address] Performed By: #### 5 8410-2 ####[facility] LABIA [id number] [place] [address] [place] RBC (Bld) [#/Vol] 4.20 10*6/uL Normal 3.90-5.20 [facility] Comment on above: Order Comment: Speci men Type: BLOOD SPECIMENOrdering Facility: [facility] Address: [address] [place] [address] Performed By: #### 5 8410-2 ####[facility] LABIA [id number] [place] [address] [place] WBC (Bld) [#/Vol] 13.45 10*3/uL High 3.70-11.00 [facility] Comment on above: Order Comment: Speci men Type: BLOOD SPECIMENOrdering Facility: [facility] Address: [address] [place] [address] Performed By: #### 5 8410-2 ####[facility] LABIA [id number] [place] [address] [place] ANES POSTPROC EVALon 024 ANES POSTPROC EVAL Normal [facility] ANES PRE-OPon 01-10-2024 ANES PRE-OP Normal [facility] BRIEF OP NOTon 09-04-2023 BRIEF OP NOT Normal [facility] NURSING PROGon 09-04-2023 NURSING PROG Normal [facility] OPERATIVE NOon 09-04-2023 OPERATIVE NO Normal [facility] SURGICAL PATHOLOGYon 024 CASE REPORT Normal [facility] Comment on above: Order Comment: Speci men Type: TISSUE SPECIMENOrdering Facility: [facility] Address: [address] [place] [address] Result Comment: Surg ica Pathology Report Case: [id number] Provider: Heather Castillo MD Collected: 09/04/2023 09:44 AMOrdering Location: Admitting Received: 09/04/2023 02:23 PMPathologist: Maria Alejandra Haro MDSpecimens: A) - AXILLARY CONTENTS LEFT B) - SKIN EXCISION, additional left breast skin Performed By: #### S ####[facility] [id number] [address] [place] CLINICAL HISTORY Normal [facility] Comment on above: Order Comment: Speci men Type: TISSUE SPECIMENOrdering Facility: [facility] Address: [address] [place] [address] Result Comment: Pre- op diagnosis:Invasive lobular carcinoma of breast in female (HCC) [C50.919] Performed By: #### S ####[facility] [id number] [address] [place] FINAL DIAGNOSIS Normal [facility] Comment on above: Order Comment: Speci men Type: TISSUE SPECIMENOrdering Facility: [facility] Address: [address] [place] [address] Result Comment: A. L eft axilla, dissection of axillary contents:- 25 out of 33 lymph nodes positive for metastatic carcinoma (25/33).- Largest tumor deposit measures 16 mm in greatest dimension.- Extranodal extension is present (greater than 2 mm).- Changes consistent with prior procedure site.B. Additional left breast skin, excision:- Skin and subcutaneous tissue with changes consistent with prior procedure site. Performed By: #### S ####[facility] LABCLIA [id number] [place] [address] [place] FINAL PERFORMING LAB Normal [facility] Comment on above: Order Comment: Speci men Type: TISSUE SPECIMENOrdering Facility: [facility] Address: [address] [place] [address] Result Comment: Diag nostic interpretation performed at [facility], [address] [address] CLIA# [id number] Director: Amor Eisenberg M.D. Performed By: #### S ####[facility] LABCLIA [id number] [address] [place] GROSS DESCRIPTION Normal [facility] Comment on above: Order Comment: Speci men Type: TISSUE SPECIMENOrdering Facility: [facility] Address: [address] [place] [address] Result Comment: A. A XILLARY CONTENTS LEFTReceived fresh labeled axillary contents left are multiple parker, soft fibroadipose tissue segments aggregating to 9 x 6.5 x 2.4 cm. Palpation and dissection reveals multiple possible lymph nodes ranging from 0.2 x 0.2 x 0.2 cm to 4 x 2.3 x 1.7 cm. Salvage Cutter sections, to include all possible lymph nodes, are submitted as follows:A1 10 intact possible lymph nodes;A2 6 intact possible lymph nodes;A3 5 intact possible lymph nodes;A41 bisected possible lymph nodes;A5 3 intact possible lymph nodes;A6 1 trisected possible lymph node;A7 1 trisected possible lymph node;A8 1 trisected possible lymph node;A9 1 bisected possible lymph node;A10 1 serially section possible lymph node;A 11 1 serially sectioned possible lymph node;A 12-A13 1 serially section possible lymph node;A 14 1 trisected possible lymph node;A 15 1 bisected possible lymph node;A 16 1 serially sectioned possible lymph node;A 17 1 serially section possible lymph node;A 18-A20 1 serially section possible lymph node;A 21 1 trisected possible lymph node;A22-A24 1 serially section possible lymph node.The specimen is removed from the patient 9:44 AM on 09/04/2023 and placed in formalin at 3:30 PM on 09/04/2023.B. SKIN EXCISIONReceived fresh labeled additional left breast skin is an unoriented segment of fibroadipose tissue, partially surfaced by lightly pigmented skin measuring 15.4 x 9.5 x 2 cm, weighing 158.3 g. The wrinkled skin surface is grossly unremarkable. Sectioning reveals parker, glistening predominantly fatty cut surfaces with some interspersing fibrous tissue. No lesions are grossly appreciated. Salvage Cutter sections, to include skin, are submitted in 2 cassettes. The specimen is removed from the patient 12:21 PM on 09/04/2023 and placed in formalin at 3:37 PM on 09/04/2023.Gross examination performed at [facility], [address] [place] [address] CLIA#[id number] September 04, 2023 3:38 PM Performed By: #### S ####[facility] [id number] [place] [address] [place] VENOUS BLOOD GASES WITH IONI ZED MAGNESIUMon 09-04-2023 Base excess Calc (BldV) [Moles/Vol] 0 mmol/L Normal 0-2 [facility] Comment on above: Order Comment: Speci men Type: VENOUS BLOOD SPECIMENOrdering Facility: [facility] Address: [address] [place] [address] Performed By: #### V ALLMG ####[facility] LABIA [id number] [place] [address] [place] Calcium.ionized (Bld) [Mass/Vol] 1.15 mmol/L Normal 1.08-1.30 [facility] Comment on above: Order Comment: Speci men Type: VENOUS BLOOD SPECIMENOrdering Facility: [facility] Address: [address] [place] [address] Performed By: #### V ALLMG ####[facility] LABIA [id number] [place] [address] [place] Calcium.ionized adjusted to pH 7.4 (BldA) [Moles/Vol] 1.11 mmol/L Normal 1.08-1.30 [facility] Comment on above: Order Comment: Speci men Type: VENOUS BLOOD SPECIMENOrdering Facility: [facility] Address: [address] [place] [address] Performed By: #### V ALLMG ####[facility] LABIA [id number] [place] [address] [place] Carboxyhemoglobin (BldV) [Mass fraction] 1.4 % Normal 0.0-2.0 [facility] Comment on above: Order Comment: Speci men Type: VENOUS BLOOD SPECIMENOrdering Facility: [facility] Address: [address] [place] [address] Result Comment: Carb oxyhemoglobin Reference Range for Smokers: 2.0-8.0% Performed By: #### V ALLMG ####[facility] LABCLIA [id number] [place] [address] [place] CO2 (BldV) [Partial pressure] 50 mm[Hg] Normal 42-55 [facility] Comment on above: Order Comment: Speci men Type: VENOUS BLOOD SPECIMENOrdering Facility: [facility] Address: [address] [place] [address] Performed By: #### V ALLMG ####[facility] LABCLIA [id number] [place] [address] [place] CO2 adjusted to patient's actual temperature (BldV) [Partial pressure] 50 mmHg Normal 42-55 [facility] Comment on above: Order Comment: Speci men Type: VENOUS BLOOD SPECIMENOrdering Facility: [facility] Address: [address] [place] [address] Performed By: #### V ALLMG ####[facility] LABCLIA [id number] [place] [address] [place] Glucose [Mass/Vol] 186 mg/dL High 60-105 [facility] Comment on above: Order Comment: Speci men Type: VENOUS BLOOD SPECIMENOrdering Facility: [facility] Address: [address] [place] [address] Performed By: #### V ALLMG ####[facility] LABCLIA [id number] [place] [address] [place] HCO3 (Bld) [Moles/Vol] 26 mmol/L Normal 24-28 [facility] Comment on above: Order Comment: Speci men Type: VENOUS BLOOD SPECIMENOrdering Facility: [facility] Address: [address] [place] [address] Performed By: #### V ALLMG ####[facility] LABCLIA [id number] [place] [address] [place] Hematocrit (Bld) [Volume fraction] 47.0 % High 36.0-46.0 [facility] Comment on above: Order Comment: Speci men Type: VENOUS BLOOD SPECIMENOrdering Facility: [facility] Address: [address] [place] [address] Performed By: #### V ALLMG ####[facility] LABCLIA [id number] [place] [address] [place] Hemoglobin (Bld) [Mass/Vol] 15.3 g/dL Normal 11.5-15.5 [facility] Comment on above: Order Comment: Speci men Type: VENOUS BLOOD SPECIMENOrdering Facility: [facility] Address: [address] [place] [address] Performed By: #### V ALLMG ####[facility] LABCLIA [id number] [place] [address] [place] Lactate [Moles/Vol] 2.4 mmol/L High 0.5-2.2 [facility] Comment on above: Order Comment: Speci men Type: VENOUS BLOOD SPECIMENOrdering Facility: [facility] Address: [address] [place] [address] Performed By: #### V ALLMG ####[facility] LABCLIA [id number] [place] [address] [place] Magnesium [Moles/Vol] 0.53 mmol/L Normal 0.45-0.60 [facility] Comment on above: Order Comment: Speci men Type: VENOUS BLOOD SPECIMENOrdering Facility: [facility] Address: [address] [place] [address] Performed By: #### V ALLMG ####[facility] LABCLIA [id number] [place] [address] [place] Methemoglobin (Bld) [Mass fraction] 0.8 % Normal 0.0-1.5 [facility] Comment on above: Order Comment: Speci men Type: VENOUS BLOOD SPECIMENOrdering Facility: [facility] Address: [address] [place] [address] Performed By: #### V ALLMG ####[facility] LABCLIA [id number] [place] [address] [place] Oxygen (BldV) [Partial pressure] 50 mm[Hg] High 35-45 [facility] Comment on above: Order Comment: Speci men Type: VENOUS BLOOD SPECIMENOrdering Facility: [facility] Address: [address] [place] [address] Performed By: #### V ALLMG ####[facility] LABCLIA [id number] [place] [address] [place] Oxygen adjusted to patient's actual temperature (BldV) [Partial pressure] 50 mmHg High 35-45 [facility] Comment on above: Order Comment: Speci men Type: VENOUS BLOOD SPECIMENOrdering Facility: [facility] Address: [address] [place] [address] Performed By: #### V ALLMG ####[facility] LABCLIA [id number] [place] [address] [place] Oxygen saturation in Venous blood 81 % Normal 60-85 [facility] Comment on above: Order Comment: Speci men Type: VENOUS BLOOD SPECIMENOrdering Facility: [facility] Address: [address] [place] [address] Performed By: #### V ALLMG ####[facility] LABCLIA [id number] [address] [address] [place] Oxyhemoglobin (BldV) [Mass fraction] 79 % Normal 60-85 [facility] Comment on above: Order Comment: Speci men Type: VENOUS BLOOD SPECIMENOrdering Facility: [facility] Address: [address] [place] [address] Performed By: #### V ALLMG ####[facility] LABCLIA [id number] [place] [address] [place] pH (BldV) 7.33 [pH] Normal 7.32-7.42 [facility] Comment on above: Order Comment: Speci men Type: VENOUS BLOOD SPECIMENOrdering Facility: [facility] Address: [address] [place] [address] Performed By: #### V ALLMG ####[facility] LABCLIA [id number] [place] [address] [place] pH adjusted to patient's actual temperature (BldV) 7.33 Normal 7.32-7.42 [facility] Comment on above: Order Comment: Speci men Type: VENOUS BLOOD SPECIMENOrdering Facility: [facility] Address: [address] [place] [address] Performed By: #### V ALLMG ####[facility] LABCLIA [id number] [place] [address] [place] Potassium [Moles/Vol] 3.7 mmol/L Normal 3.5-5.0 [facility] Comment on above: Order Comment: Speci men Type: VENOUS BLOOD SPECIMENOrdering Facility: [facility] Address: [address] [place] [address] Performed By: #### V ALLMG ####[facility] LABCLIA [id number] [place] [address] [place] Sodium [Moles/Vol] 138 mmol/L Normal 136-144 [facility] Comment on above: Order Comment: Speci men Type: VENOUS BLOOD SPECIMENOrdering Facility: [facility] Address: [address] [place] [address] Performed By: #### V ALLMG ####[facility] LABCLIA [id number] [place] [address] [place] CNOVon 08-29-2023 CNOV Normal [facility] CNPNon 08-16-2023 CNPN Normal [facility] CNPNon 08-12-2023 CNPN Normal [facility] CNPNon 08-09-2023 CNPN Normal [facility] CNOVon 08-06-2023 CNOV Normal [facility] CNOV Normal [facility] CNOVSPon 08-06-2023 CNOVSP Normal [facility] CASE MANAGEMon 07-30-2023 CASE MANAGEM Normal [facility] CASE MGT INIT ASSESon 2022 CASE MGT INIT ASSES Normal [facility] ANES POSTPROC EVALon 023 ANES POSTPROC EVAL Normal [facility] ANES PRE-OPon 07-29-2023 ANES PRE-OP Normal [facility] NM INJ SENT NODE BREAST LTon 07-29-2023 NM INJ SENT NODE BREAST LT Normal [facility] NM INJ SENTINEL NODE BREAST LEFTon 07-29-2023 [facility] NURSING PROGon 07-29-2023 NURSING PROG Normal [facility] OPERATIVE NOon 07-29-2023 OPERATIVE NO Normal [facility] SURGICAL PATHOLOGYon 023 BLOCK FOR ADDITIONAL BIOMARKERS/MOLECULAR STUDIES A7 Normal [facility] Comment on above: Order Comment: Speci men Type: TISSUE SPECIMENOrdering Facility: [facility] Address: [address] [place] [address] Performed By: #### S ####[facility] [id number] [address] [place] CASE REPORT Normal [facility] Comment on above: Order Comment: Speci men Type: TISSUE SPECIMENOrdering Facility: [facility] Address: [address] [place] [address] Result Comment: Surg ica Pathology Report Case: [id number] Provider: Heather Castillo MD Collected: 07/29/2023 11:29 AMOrdering Location: Admitting Received: 07/29/2023 11:57 AMPathologist: Saravanan Danielle MD, PhDSpecimens: A) - BREAST MASTECTOMY LEFT, stitch: one long lateral, one short superior, nipple anterior B) - SENTINEL LYMPH NODE LEFT, axillary node #1 C) - SENTINEL LYMPH NODE LEFT, axillary node #2 D) - SENTINEL LYMPH NODE LEFT, axillary node #3 E) - SENTINEL LYMPH NODE LEFT, axillary node #4 F) - BREAST MARGIN LEFT, medial breast tissue, long lateral, short superior G) - SKIN EXCISION, left breast skin Performed By: #### S ####[facility] LABIA [id number] [address] [place] CLINICAL HISTORY Normal [facility] Comment on above: Order Comment: Speci men Type: TISSUE SPECIMENOrdering Facility: [facility] Address: [address] [place] [address] Result Comment: Pre- op diagnosis:Invasive lobular carcinoma of breast in female (HCC) [C50.919] Performed By: #### S ####[facility] LABIA [id number] [address] [place] DIAGNOSIS COMMENT Normal [facility] Comment on above: Order Comment: Speci men Type: TISSUE SPECIMENOrdering Facility: [facility] Address: [address] [place] [address] Result Comment: The following immunohistochemical stains were performed to help establish the diagnosis:- Keratin AE1/3 (block E1): Highlights isolated tumor cells in lymph nodeThe preliminary findings were communicated to Dr. Celia Donaldson, Dr. Law Rehman, and Juliet Cai SEPARATOR OPERATOR by Dr. Saravanan Danielle via secure email on 16/07/2023 at 10:11 a.m.Laboratory Developed Test (LDT) Disclaimer:Performance characteristics of immunohistochemical, immunofluorescent and chromogenic in-situ hybridization tests have been determined by the performing laboratory within [facility]???s [facility] [place] ([facility], [facility], [facility], [facility], [facility], [facility], or [facility]) in a manner consistent with CLIA requirements. One or more of these tests have not been cleared or approved by the FDA. [facility] is regulated under CLIA as qualified to perform high-complexity testing. These tests are used for clinical purposes. They should not be regarded as investigational or for research. Positive and negative controls stain appropriately. Performed By: #### S ####[facility] LABCLIA [id number] [place] [address] [place] FINAL DIAGNOSIS Normal [facility] Comment on above: Order Comment: Speci men Type: TISSUE SPECIMENOrdering Facility: [facility] Address: [address] [place] [address] Result Comment: A. L eft breast, mastectomy:- Invasive lobular carcinoma, Angela grade 2, at least 63 mm, negative margins; see synoptic comment.- Lobular carcinoma in situ, classic type.- Atypical ductal hyperplasia, multifocal.- Complex sclerosing lesion, involved by invasive lobular carcinoma.- Fibrocystic changes, including usual ductal hyperplasia, apocrine metaplasia, columnar cell change, micropapillomas, and cysts.- Duct ectasia.- Nipple and skin, not involved by carcinoma.- Skeletal muscle, not involved by carcinoma.- Calcifications in association with atypical ductal hyperplasia and benign ducts.B. Left axillary sentinel lymph node #1, excision:Metastatic carcinoma in one lymph node, 14 mm, with extranodal extension (/).C. Left axillary sentinel lymph node #2, excision:Metastatic carcinoma in one lymph node, 4 mm (/).D. 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 Left axillary sentinel lymph node #4, excision:Isolated tumor cells in one lymph node (i+/1).F. Left breast, medial tissue, excision:Benign skin and fibroadipose tissue, negative for carcinoma.G. Left breast skin, excision:Benign skin, negative for carcinoma. Performed By: #### S ####[facility] LABCLIA [id number] [address] [place] FINAL PERFORMING LAB Normal [facility] Comment on above: Order Comment: Speci men Type: TISSUE SPECIMENOrdering Facility: [facility] Address: [address] [place] [address] Result Comment: Diag nostic interpretation performed at [facility], [address] [address] CLIA# [id number] Director: Amor Eisenberg M.D. Performed By: #### S ####[facility] LABIA [id number] [address] GROSS DESCRIPTION Normal [facility] Comment on above: Order Comment: Speci men Type: TISSUE SPECIMENOrdering Facility: [facility] Address: [address] [place] [address] Result Comment: A. B REAST MASTECTOMY LEFTReceived in formalin labeled breast mastectomy left is an oriented left mastectomy specimen weighing 1060 g and measuring 18.2 cm from medial to lateral by 14.8 cm from superior to inferior by 14.5 cm from anterior to posterior. The specimen is oriented per the requisition as short suture chacon the superior aspect and a long suture chacon the lateral aspect. There are no segments of muscle. There is an unremarkable excision of skin on the radial margin measuring 13.4 cm medial to lateral by 14.7 cm superior to inferior. The unremarkable nipple areolar complex measures 3.2 cm in greatest diameter. The inverted nipple measures 2 x 1.5 x 0.7 cm. The specimen is imaged to reveal no clips. The superior radial margin is inked blue, the inferior radial margin is inked green, the area under the nipple is inked orange, and the deep margin is inked black. The breast is serially sectioned to reveal 1 mass.The mass is stellate and firm, with cystic hemorrhage and necrosis, measuring 5.6 cm medial to lateral by 4.5 cm superior to inferior by 3.4 cm anterior to posterior. The mass is situated in the lower outer quadrant at the 4:00 region approximately 4 cm from the nipple. The lesion is 1 cm from the closest inferior radial margin, 1.4 cm from the deep margin, and 5.7 cm from the closest superior radial margin.The remaining breast parenchyma is soft adipose tissue with dense fibrous tissue. Dissection does not reveal any lymph nodes.The specimen was removed from patient on 07/29/2023 at 11:56 AM and was placed in formalin at 12:50 PM.Salvage Cutter sections are submitted as follows:A1-A13: mass in lower outer quadrant section along the longest linear dimension from lateral to medial (nonmarginal)A14: Mass to closest deep xvkcmhH37: Mass to closest inferior radial jkgdctI85: Closest superior radial rodrdxS91: Salvage Cutter slice lateral to mass (nonmarginal)A18: Salvage Cutter slice medial to mass (additional inferior radial margin)A19: Nonmarginal upper outer eoalftqqI41: Nonmarginal lower outer kdbqxmjfR72: Nonmarginal upper inner ghtmjdexS59: Nonmarginal lower inner pmbttvnyX32-I90: Nipple, entirely submittedGross examination performed at [facility], [address] [place] [address] CLIA#[id number] 07/30/23 11:06 AMAfter initial microscopic evaluation, additional sections are submitted as follows:A27-29 nonmarginal tissue directly lateral to mass, lower outer quadrant (submitted in sequence from most medial to most lateral)A30-32 nonmarginal tissue directly medial to mass, lower inner quadrant (submitted in sequence from most lateral to the most medial)[facility] August 01, 2023 4:10 PMGross examination performed at [facility], [address] [place], [place] [address]After microscopic evaluation, additional sections are submitted as follows:A33-A34: Consecutive sections medial to N35V03-Z04: Additional sections of posterior margin near iqaroM53-C66: Additional sections of anterior margin near tumor, inferior to skinGross examination performed at [facility], [address], [place] [id number] CLIA#[id number] 08/05/23 3:55 PMB. SENTINEL LYMPH NODE LEFTReceived in formalin labeled axillary node #1 is an excision of rubbery fibroadipose tissue measuring 5 x 3 x 2 cm with a lobulated, parker-pink, rubbery lymph node measuring 4.5 x 2 x 1.3 cm. The cut surfaces are rubbery and glistening.Entirely submitted as follows:B1-B4: Entire sectioned lymph nodeB5: Residual adipose tissueALM July 29, 2023 1:27 PMGross examination performed at [facility], [address] [place] [id number]. SENTINEL LYMPH NODE LEFTReceived in formalin labeled axillary node #2 is an excision of rubbery fibroadipose tissue measuring 3.6 x 3.4 x 1.5 cm with an ovoid, pink-yellow, rubbery lymph node measuring 3 x 2.1 x 0.4 cm. The cut surfaces are rubbery and glistening.Entirely submitted as follows:C1-C2: Entire sectioned lymph nodeC3: Residual adipose tissueALM July 29, 2023 1:30 PMGross examination performed at [facility], [address] [place] [id number]. SENTINEL LYMPH NODE LEFTReceived in formalin labeled axillary node #3 is an excision of rubbery fibroadipose tissue measuring 3.7 x 3 x 0.9 cm with an irregularly shaped, pink-yellow, rubbery lymph node measuring 2.1 x 1.8 x 1.1 cm. The cut surfaces are rubbery and glistening.Entirely submitted as follows:D1-D2: Entire sectioned lymph nodeD3: Residual adipose tissueALM July 29, 2023 1:32 PMGross examination performed at [facility], [address] [place] [id number]. SENTINEL LYMPH NODE LEFTReceived in formalin labeled axillary node #4 is an excision of rubbery fibroadipose tissue measuring 2.2 x 1.5 x 0.4 cm with an irregularly shaped, pink-yellow, rubbery lymph node measuring 1.4 x 1 x 0.6 cm. The cut surfaces are rubbery and glistening.Entirely submitted as follows:E1: Entire sectioned lymph nodeE2: Residual adipose tissueALM July 29, 2023 1:35 PMGross examination performed at [facility], [facility] [place] [id number]. BREAST MARGIN LEFTReceived in formalin labeled medial breast tissue is an oriented excision of fibroadipose tissue measuring 5.3 cm (medial-lateral) by 3 cm (anterior-posterior) by 2.3 cm (superior-inferior) and weighing 8.3 g. The specimen is partially surfaced on the anterior margin by a parker unremarkable skin ellipse measuring 4.5 cm (medial-lateral) by 1.3 cm (superior-inferior). The specimen is oriented per the requisition as short suture-superior and long suture-lateral. The specimen is inked as follows: Superior margin-blue, inferior margin-green, medial margin-orange, lateral margin-red, anterior margin-yellow, posterior margin-black. The specimen radiograph reveals no prior biopsy sites. The specimen is sectioned from medial to lateral into 10 slices.The cut surfaces are composed of soft unremarkable adipose tissue interspersed by minimal fibrous tissue. There are no masses or lesions.Entirely submitted as follows:F1: Slice 1 lateral marginF2: Slice 2 anterior, posterior, superior, inferior marginsF3: Slice 3 anterior, posterior, superior, inferior marginsF4: Slice 4 anterior, posterior, superior, inferior marginsF5: Slice 5 anterior, posterior, superior, inferior marginsF6: Slice 6 anterior, posterior, superior, inferior marginsF7: Slice 7 anterior, posterior, superior, inferior marginsF8: Slice 8 anterior, posterior, superior, inferior marginsF9: Slice 9 anterior, posterior, superior, inferior stsloumW61: Slice 10 lateral marginALM July 29, 2023 1:56 PMGross examination performed at [facility], [address] [place], [place] [address]W. SKIN EXCISIONReceived in formalin labeled left breast skin are multiple irregularly shaped, pink-parker, soft skin excisions aggregating to 3.5 x 2.3 x 0.4 cm. There are no obvious skin lesions. Salvage Cutter sections are submitted in cassettes G1-G2.BRUCE July 29, 2023 1:59 PMGross examination performed at [facility], [address] [place] [address] Performed By: #### S ####[facility] LABCLIA [id number] [facility] [id number] [address] [place] SYNOPTIC REPORT Normal [facility] Comment on above: Order Comment: Speci men Type: TISSUE SPECIMENOrdering Facility: [facility] Address: [address] [place] [address] Result Comment: INVA SIVE CARCINOMA OF THE BREAST: ResectionINVASIVE CARCINOMA OF THE BREAST: EXCISION - All [id number] Edition - Protocol posted: 11/14/2022SPECIMEN Procedure: Total mastectomy Specimen Laterality: LeftTUMOR Tumor Site: Lower outer quadrant to central Histologic Type: Invasive lobular carcinoma Histologic Grade (Angeal Histologic Score): Glandular (Acinar) / Tubular Differentiation: Score 3 Nuclear Pleomorphism: Score 2 Mitotic Rate: Score 1 Overall Grade: Grade 2 (scores of 6 or 7) Tumor Size: Greatest dimension of largest invasive focus (Millimeters): At least 63 mm Tumor Focality: Single focus of invasive carcinoma Ductal Carcinoma In Situ (DCIS): Not identified Lymphatic and / or Vascular Invasion: Present : Focal Microcalcifications: Present in non-neoplastic tissue Microcalcifications: Present in atypical ductal hyperplasia Treatment Effect in the Breast: No known presurgical therapyMARGINS Margin Status for Invasive Carcinoma: All margins negative for invasive carcinoma Distance from Invasive Carcinoma to Closest Margin: 5 mm Closest Margin(s) to Invasive Carcinoma: PosteriorREGIONAL LYMPH NODES Regional Lymph Node Status: : Tumor present in regional lymph node(s) Number of Lymph Nodes with Macrometastases: 3 Number of Lymph Nodes with Micrometastases: 0 Number of Lymph Nodes with Isolated Tumor Cells: 1 Size of Largest Charlie Metastatic Deposit: 18 mm Extranodal Extension: Present, greater than 2 mm Total Number of Lymph Nodes Examined (sentinel and non-sentinel): 4 Number of Refugio Nodes Examined: 4pTNM CLASSIFICATION (AJCC 8th Edition) Reporting of pT, pN, and (when applicable) pM categories is based on information available to the pathologist at the time the report is issued. As per the AJCC (Chapter 1, 8th Ed.) it is the managing physician???s responsibility to establish the final pathologic stage based upon all pertinent information, including but potentially not limited to this pathology report. pT Category: pT3 pN Category: pN1a N Suffix: (sn)SPECIAL STUDIES Testing Performed on (outside case, slides reviewed at the [facility]) Comment(s): Invasive lobular carcinoma is present in 21 consecutive sampled sections in the medial-lateral dimension, measuring at least 63 mm. Performed By: #### S ####[facility] LABCLIA [id number] [place] [address] [place] 25(OH)D3 [facility] 25-hydroxyvitamin D3 [Mass/Vol] 69.2 ng/mL Normal 31.0-80.0 [facility] Comment on above: Order Comment: Speci men Type: BLOOD SPECIMENOrdering Facility: [facility] Address: [address] [place] [address] Result Comment: Clas sification of 25 [place] Vitamin D status:Deficiency/Insufficiency: < or = 30 ng/ml.Sufficiency/Optimal Levels: 31-80 ng/mLToxicity: > 100 ng/mL.Test performed by chemiluminescent immunoassay. Performed By: #### 1 989-3 ####[facility] LABIA [id number] [place] [address] [place] CBC W Auto Differential pane l (Bld)on 07-26-2023 Basophils (Bld) [#/Vol] 0.03 10*3/uL Normal <0.11 [facility] Comment on above: Order Comment: Speci men Type: BLOOD SPECIMENOrdering Facility: [facility] Address: [address] [place] [address] Performed By: #### 5 7021-8 ####[facility] LABIA [id number] [place] [address] [place] Basophils/100 WBC (Bld) 0.4 % Normal [facility] Comment on above: Order Comment: Speci men Type: BLOOD SPECIMENOrdering Facility: [facility] Address: [address] [place] [address] Performed By: #### 5 7021-8 ####[facility] LABCLIA [id number] [place] [address] [place] Differential cell count method Nom (Bld) Auto Normal [facility] Comment on above: Order Comment: Speci men Type: BLOOD SPECIMENOrdering Facility: [facility] Address: [address] [place] [address] Performed By: #### 5 7021-8 ####[facility] LABCLIA [id number] [place] [address] [place] Eosinophils (Bld) [#/Vol] 0.21 10*3/uL Normal <0.46 [facility] Comment on above: Order Comment: Speci men Type: BLOOD SPECIMENOrdering Facility: [facility] Address: [address] [place] [address] Performed By: #### 5 7021-8 ####[facility] LABCLIA [id number] [place] [address] [place] Eosinophils/100 WBC (Bld) 2.5 % Normal [facility] Comment on above: Order Comment: Speci men Type: BLOOD SPECIMENOrdering Facility: [facility] Address: [address] [place] [address] Performed By: #### 5 7021-8 ####[facility] LABCLIA [id number] [place] [address] [place] Erythrocyte distribution width (RBC) [Ratio] 14.8 % Normal 11.5-15.0 [facility] Comment on above: Order Comment: Speci men Type: BLOOD SPECIMENOrdering Facility: [facility] Address: [address] [place] [address] Performed By: #### 5 7021-8 ####[facility] LABCLIA [id number] [place] [address] [place] Hematocrit (Bld) [Volume fraction] 43.2 % Normal 36.0-46.0 [facility] Comment on above: Order Comment: Speci men Type: BLOOD SPECIMENOrdering Facility: [facility] Address: [address] [place] [address] Performed By: #### 5 7021-8 ####[facility] LABCLIA [id number] [place] [address] [place] Hemoglobin (Bld) [Mass/Vol] 14.1 g/dL Normal 11.5-15.5 [facility] Comment on above: Order Comment: Speci men Type: BLOOD SPECIMENOrdering Facility: [facility] Address: [address] [place] [address] Performed By: #### 5 7021-8 ####[facility] LABCLIA [id number] [place] [address] [place] Immature granulocytes (Bld) [#/Vol] 0.03 10*3/uL Normal <0.10 [facility] Comment on above: Order Comment: Speci men Type: BLOOD SPECIMENOrdering Facility: [facility] Address: [address] [place] [address] Performed By: #### 5 7021-8 ####[facility] LABCLIA [id number] [place] [address] [place] Immature granulocytes/100 WBC (Bld) 0.4 % Normal [facility] Comment on above: Order Comment: Speci men Type: BLOOD SPECIMENOrdering Facility: [facility] Address: [address] [place] [address] Performed By: #### 5 7021-8 ####[facility] LABCLIA [id number] [place] [address] [place] Lymphocytes (Bld) [#/Vol] 1.90 10*3/uL Normal 1.00-4.00 [facility] Comment on above: Order Comment: Speci men Type: BLOOD SPECIMENOrdering Facility: [facility] Address: [address] [place] [address] Performed By: #### 5 7021-8 ####[facility] LABCLIA [id number] [place] [address] [place] Lymphocytes/100 WBC (Bld) 22.3 % Normal [facility] Comment on above: Order Comment: Speci men Type: BLOOD SPECIMENOrdering Facility: [facility] Address: [address] [place] [address] Performed By: #### 5 7021-8 ####[facility] LABIA [id number] [place] [address] [place] MCH (RBC) [Entitic mass] 30.9 pg Normal 26.0-34.0 [facility] Comment on above: Order Comment: Speci men Type: BLOOD SPECIMENOrdering Facility: [facility] Address: [address] [place] [address] Performed By: #### 5 7021-8 ####[facility] LABIA [id number] [place] [address] [place] MCHC (RBC) [Mass/Vol] 32.6 g/dL Normal 30.5-36.0 [facility] Comment on above: Order Comment: Speci men Type: BLOOD SPECIMENOrdering Facility: [facility] Address: [address] [place] [address] Performed By: #### 5 7021-8 ####[facility] LABIA [id number] [place] [address] [place] MCV (RBC) [Entitic vol] 94.7 fL Normal 80.0-100.0 [facility] Comment on above: Order Comment: Speci men Type: BLOOD SPECIMENOrdering Facility: [facility] Address: [address] [place] [address] Performed By: #### 5 7021-8 ####[facility] LABIA [id number] [place] [address] [place] Monocytes (Bld) [#/Vol] 0.65 10*3/uL Normal <0.87 [facility] Comment on above: Order Comment: Speci men Type: BLOOD SPECIMENOrdering Facility: [facility] Address: [address] [place] [address] Performed By: #### 5 7021-8 ####[facility] LABCLIA [id number] [place] [address] [place] Monocytes/100 WBC (Bld) 7.6 % Normal [facility] Comment on above: Order Comment: Speci men Type: BLOOD SPECIMENOrdering Facility: [facility] Address: [address] [place] [address] Performed By: #### 5 7021-8 ####[facility] LABCLIA [id number] [place] [address] [place] Neutrophils (Bld) [#/Vol] 5.69 10*3/uL Normal 1.45-7.50 [facility] Comment on above: Order Comment: Speci men Type: BLOOD SPECIMENOrdering Facility: [facility] Address: [address] [place] [address] Performed By: #### 5 7021-8 ####[facility] LABCLIA [id number] [place] [address] [place] Neutrophils/100 WBC (Bld) 66.8 % Normal [facility] Comment on above: Order Comment: Speci men Type: BLOOD SPECIMENOrdering Facility: [facility] Address: [address] [place] [address] Performed By: #### 5 7021-8 ####[facility] LABCLIA [id number] [place] [address] [place] Nucleated RBC (Bld) [#/Vol] 10*3/uL Normal <0.01 [facility] Comment on above: Order Comment: Speci men Type: BLOOD SPECIMENOrdering Facility: [facility] Address: [address] [place] [address] Performed By: #### 5 7021-8 ####[facility] LABCLIA [id number] [place] [address] [place] Nucleated RBC/100 WBC (Bld) [Ratio] 0.0 /100 WBC Normal [facility] Comment on above: Order Comment: Speci men Type: BLOOD SPECIMENOrdering Facility: [facility] Address: [address] [place] [address] Performed By: #### 5 7021-8 ####[facility] LABCLIA [id number] [place] [address] [place] Platelet mean volume (Bld) [Entitic vol] 10.1 fL Normal 9.0-12.7 [facility] Comment on above: Order Comment: Speci men Type: BLOOD SPECIMENOrdering Facility: [facility] Address: [address] [place] [address] Performed By: #### 5 7021-8 ####[facility] LABCLIA [id number] [place] [address] [place] Platelets (Bld) [#/Vol] 314 10*3/uL Normal 150-400 [facility] Comment on above: Order Comment: Speci men Type: BLOOD SPECIMENOrdering Facility: [facility] Address: [address] [place] [address] Performed By: #### 5 7021-8 ####[facility] LABCLIA [id number] [place] [address] [place] RBC (Bld) [#/Vol] 4.56 10*6/uL Normal 3.90-5.20 [facility] Comment on above: Order Comment: Speci men Type: BLOOD SPECIMENOrdering Facility: [facility] Address: [address] [place] [address] Performed By: #### 5 7021-8 ####[facility] LABCLIA [id number] [place] [address] [place] WBC (Bld) [#/Vol] 8.51 10*3/uL Normal 3.70-11.00 [facility] Comment on above: Order Comment: Speci men Type: BLOOD SPECIMENOrdering Facility: [facility] Address: [address] [place] [address] Performed By: #### 5 7021-8 ####[facility] LABCLIA [id number] [address] [address] [place] Comprehensive metabolic 2000 panelon 07-26-2023 Albumin [Mass/Vol] 4.2 g/dL Normal 3.9-4.9 [facility] Comment on above: Order Comment: Speci men Type: BLOOD SPECIMENOrdering Facility: [facility] Address: [address] [place] [address] Performed By: #### 2 4323-8 ####[facility] LABCLIA [id number] [place] [address] [place] ALP [Catalytic activity/Vol] 95 U/L Normal 34-123 [facility] Comment on above: Order Comment: Speci men Type: BLOOD SPECIMENOrdering Facility: [facility] Address: [address] [place] [address] Performed By: #### 2 4323-8 ####[facility] LABCLIA [id number] [place] [address] [place] ALT [Catalytic activity/Vol] 31 U/L Normal 7-38 [facility] Comment on above: Order Comment: Speci men Type: BLOOD SPECIMENOrdering Facility: [facility] Address: [address] [place] [address] Performed By: #### 2 4323-8 ####[facility] LABCLIA [id number] [place] [address] [place] Anion gap [Moles/Vol] 13 mmol/L Normal 9-18 [facility] Comment on above: Order Comment: Speci men Type: BLOOD SPECIMENOrdering Facility: [facility] Address: [address] [place] [address] Performed By: #### 2 4323-8 ####[facility] LABCLIA [id number] [place] [id number] [place] AST [Catalytic activity/Vol] 24 U/L Normal 13-35 [facility] Comment on above: Order Comment: Speci men Type: BLOOD SPECIMENOrdering Facility: [facility] Address: [address] [place] [address] Performed By: #### 2 4323-8 ####[facility] LABCLIA [id number] [place] [address] [place] Bilirubin [Mass/Vol] 0.5 mg/dL Normal 0.2-1.3 [facility] Comment on above: Order Comment: Speci men Type: BLOOD SPECIMENOrdering Facility: [facility] Address: [address] [place] [address] Performed By: #### 2 4323-8 ####[facility] LABCLIA [id number] [place] [address] [place] Calcium [Mass/Vol] 9.5 mg/dL Normal 8.5-10.2 [facility] Comment on above: Order Comment: Speci men Type: BLOOD SPECIMENOrdering Facility: [facility] Address: [address] [place] [address] Performed By: #### 2 4323-8 ####[facility] LABCLIA [id number] [place] [address] [place] Chloride [Moles/Vol] 104 mmol/L Normal 97-105 [facility] Comment on above: Order Comment: Speci men Type: BLOOD SPECIMENOrdering Facility: [facility] Address: [address] [place] [address] Performed By: #### 2 4323-8 ####[facility] LABCLIA [id number] [place] [address] [place] CO2 [Moles/Vol] 24 mmol/L Normal 22-30 [facility] Comment on above: Order Comment: Speci men Type: BLOOD SPECIMENOrdering Facility: [facility] Address: [address] [place] [address] Performed By: #### 2 4323-8 ####[facility] LABIA [id number] [place] [address] [place] Creatinine [Mass/Vol] 0.79 mg/dL Normal 0.58-0.96 [facility] Comment on above: Order Comment: Alison men Type: BLOOD SPECIMENOrdering Facility: [facility] Address: [address] [place] [address] Performed By: #### 2 4323-8 ####[facility] LABIA [id number] [place] [address] [place] Creatinine and Glomerular filtration rate.predicted panel (S/P/Bld) 82 mL/min/1.73m??? Normal >=60 [facility] Comment on above: Order Comment: Alison men Type: BLOOD SPECIMENOrdering Facility: [facility] Address: [address] [place] [address] Result Comment: Cristal mated Glomerular Filtration Rate (eGFR) is calculated using the 2020 CKD-EPI creatinine equation. This equation utilizes serum creatinine, sex, and age as parameters. The creatinine assay has traceable calibration to isotope dilution-mass spectrometry. Refer to KDIGO guidelines for clinical interpretation. In patients with unstable renal function, e.g. those with acute kidney injury, the eGFR may not accurately reflect actual GFR. Performed By: #### 2 4323-8 ####[facility] LABIA [id number] [place] [address] [place] Glucose [Mass/Vol] 101 mg/dL High 74-99 [facility] Comment on above: Order Comment: Joelbirgit men Type: BLOOD SPECIMENOrdering Facility: [facility] Address: [address] [place] [address] Result Comment: The [place] Diabetes Association (ADA) provides guidance for cutoff values for fasting glucose and random glucose. The ADA defines fasting as no caloric intake for at least 8 hours. Fasting plasma glucose results between 100 to 125 mg/dL indicate increased risk for diabetes (prediabetes).Fasting plasma glucose results greater than or equal to 126 mg/dL meet the criteria for diagnosis of diabetes. In the absence of unequivocal hyperglycemia, results should be confirmed by repeat testing. In a patient with classic symptoms of hyperglycemia or hyperglycemic crisis, random plasma glucose results greater than or equal to 200 mg/dL meet the criteria for diagnosis of diabetes.Reference: Standards of Medical Care in Diabetes 2016, Canadian Diabetes Association. Diabetes Care. 2016.39(Suppl 1). Performed By: #### 2 4323-8 ####[facility] LABCLIA [id number] [place] [address] [place] Potassium [Moles/Vol] 4.0 mmol/L Normal 3.7-5.1 [facility] Comment on above: Order Comment: Speci men Type: BLOOD SPECIMENOrdering Facility: [facility] Address: [address] [place] [address] Performed By: #### 2 4323-8 ####[facility] LABCLIA [id number] [place] [address] [place] Protein [Mass/Vol] 6.7 g/dL Normal 6.3-8.0 [facility] Comment on above: Order Comment: Speci men Type: BLOOD SPECIMENOrdering Facility: [facility] Address: [address] [place] [address] Performed By: #### 2 4323-8 ####[facility] LABCLIA [id number] [place] [address] [place] Sodium [Moles/Vol] 141 mmol/L Normal 136-144 [facility] Comment on above: Order Comment: Speci men Type: BLOOD SPECIMENOrdering Facility: [facility] Address: [address] [place] [address] Performed By: #### 2 4323-8 ####[facility] LABCLIA [id number] [place] [address] [place] Urea nitrogen [Mass/Vol] 15 mg/dL Normal 7-21 [facility] Comment on above: Order Comment: Speci men Type: BLOOD SPECIMENOrdering Facility: [facility] Address: [address] [place] [address] Performed By: #### 2 4323-8 ####[facility] LABCLIA [id number] [address] [id number] [address] [place] HISTORY PHYSICALon HISTORY PHYSICAL Normal [facility] MISC SEND OUT TST 1on 2022 REFERRAL LAB 1 [employer] Normal [facility] Comment on above: Order Comment: Speci men Type: BLOOD SPECIMENOrdering Facility: [facility] Address: [address] [place] [address] Performed By: #### M ISC1 ####NON-INTERFACED REF LABSCLIA SEE SCANNED RESULTS TEST 1 Multi Cancer Panel Normal [facility] Comment on above: Order Comment: Speci men Type: BLOOD SPECIMENOrdering Facility: [facility] Address: [address] [place] [address] Performed By: #### M ISC1 ####NON-INTERFACED REF LABSCLIA SEE SCANNED RESULTS TEST RESULTS 1 View results in Scan isela Documents link when available. Normal [facility] Comment on above: Order Comment: Speci men Type: BLOOD SPECIMENOrdering Facility: [facility] Address: [address] [place] [address] Performed By: #### M ISC1 ####NON-INTERFACED REF LABSCLIA SEE SCANNED RESULTS CNPNon 07-24-2023 CNPN Normal [facility] CNCNPATEDon 07-23-2023 CNCNPATED Normal [facility] CNOVon 07-23-2023 CNOV Normal [facility] CNOVSPon 07-23-2023 CNOVSP Normal [facility] CNPNon 07-23-2023 CNPN Normal [facility] TINO US AXILLA ONLY LTon 06-27 TINO US AXILLA ONLY LT Normal [facility] US AXILLA ONLY LEFTon 2022 [facility] OUTSIDE SURG PATH SLIDE REVI EWon 07-19-2023 CASE REPORT Normal [facility] Comment on above: Order Comment: Speci men Type: FORMALIN-FIXED PARAFFIN-EMBEDDED TISSUE SPECIMENOrdering Facility: AP Outside Review Address: , , Result Comment: Surg ical Pathology Report Case: [id number] Provider: Mendoza Yang MD Collected: 07/19/2023 04:11 PMOrdering Location: [facility] Received: 07/19/2023 04:10 PM [facility] LaboratoryPathologist: Arash Perez MDSpecimen: SLIDE(S), 9 SLIDES [id number] Performed By: #### L [id number] ####[facility] LABCLIA [id number] [address] DIAGNOSIS COMMENT Normal [facility] Comment on above: Order Comment: Speci kalyn Type: FORMALIN-FIXED PARAFFIN-EMBEDDED TISSUE SPECIMENOrdering Facility: AP Outside Review Address: , , Result Comment: Immu noperoxidase studies for estrogen receptor (ER), progesterone receptor (AR), and HER2 were performed at an outside institution and provided for review. Immunostain results for the invasive carcinoma cells are as follows:ER: POSITIVE (80%, strong)AR: POSITIVE (5%, moderate)HER2 IHC: NEGATIVE (0)Controls react as expected Performed By: #### L [id number] ####[facility] LABCLIA [id number] [address] FINAL DIAGNOSIS Normal [facility] Comment on above: Order Comment: Speci men Type: FORMALIN-FIXED PARAFFIN-EMBEDDED TISSUE SPECIMENOrdering Facility: AP Outside Review Address: , , Result Comment: aJiro lopez, left, core biopsy ([id number]; 06/19/2023):---Invasive lobular carcinoma, preliminary Delevan grade 1 (of 3), measuring at least 4.5 mm in greatest dimension.---Please see comment. Performed By: #### L [id number] ####[facility] LABCLIA [id number] [address] [address] [place] FINAL PERFORMING LAB Normal [facility] Comment on above: Order Comment: Speci men Type: FORMALIN-FIXED PARAFFIN-EMBEDDED TISSUE SPECIMENOrdering Facility: AP Outside Review Address: , , Result Comment: Diag nostic interpretation performed at [facility], [address] [facility] [address] CLIA# [id number] Director: Amor Eisenberg M.D. Performed By: #### L [id number] ####[facility] LABCLIA [id number] [place] [id number] [place] CNPNon 07-12-2023 CNPN Normal [facility] Activated partial thrombopla stin time (aPTT) in platelet poor plasma by coagulation aOrdered By: Janet Dillard on 02-28-2023 aPTT Coag (PPP) [Time] 27.6 s 25.1-36.5 [facility] Coagulation Profileon 2022 aPTT Coag (Bld) [Time] 27.6 s Normal 25.1-36.5 [facility] Comment on above: Result Comment: PERF ORMED BY: [address] [place] [address] PATHOLOGIST RETURNED TELE[employer]ONE EQUIPMENT APPRAISER SOLANGE ANN M.D. Performed By: #### P P, PLT #### [facility] [address] INR Coag (PPP) [Relative time] 1.0 {INR} Normal [facility] Comment on above: Result Comment: INR Therapeutic Range A) Pre- and Peroperative OAT started two weeks before surgery. NOT HIP SURGERY: 1.5 - 2.5 HIP SURGERY: 2 - 3 B) Primary and secondary prevention of venous THROMBOSIS: 2 - 3 C) Active venous thrombosis, pulmonary embolism and prevention of recurrent venous thrombosis: 2 - 3 D) Prevention of arterial thromboembolism including patients with mechanical heart valves: 3 - 4.5 Performed By: #### P P, PLT #### [facility] [address] PT Coag (PPP) [Time] 12.1 s Normal 9.0-12.9 [facility] Comment on above: Performed By: #### P P, PLT #### [address] [address] [facility] Lito 02-28-2023 L ------ Specimen: [id number] Received: 02/28/23 Status: MELODIE Larkindulce Num: [id number] Spec Type: Cytology Subm Dr: Pat Roberts MD Tissues: A FNA SLIDES PATH (RIGHT THYROID LOBE) Procedures: HE/2, -, DIFF QWIK/5, PAPSTN/6 Age/ Patient Sex Location Account Attending Physician Minal Caputo 67/F [id number] Nikko Astorga DO SPEC NUM: [id number] RECD: 02/28/23 STATUS: MELODIE BARTON NUM: [id number] KATERINE: 02/28/[address] [facility] [address]: Pat Roberts MD ENTERED: 02/28/[address] [facility] [address]: Nikko Astorga DO SPEC TYPE: Cytology DEPT: CNG ENTERED BY: [id number] RECV BY: [id number] ORDERED: HE/2, -, DIFF QWIK/5, PAPSTN/6 ORDERED: HE/2, -, DIFF QWIK/5, PAPSTN/6 Pathological Diagnosis Thyroid nodule, right ultrasound-guided FNA and cytology: - Acellular specimen without follicular cells/groups, nondiagnostic specimen due to insufficient cellularity - [place] category I (TBS I). Clinical Information Thyroid nodule; right thyroid lobe biopsy Gross Description Received is 25 ml of red, cloudy, fixed fluid for cytology said to have been obtained as right thyroid lobe biopsy. ThinPrep and cell block preparations are prepared for microscopic examination. (RS/tomasa) Immediate Evaluation Inadequate for diagnosis. Blood only. Negative for follicular cells. Additional material requested. Dr. Felipe was notified RKS at 11:58AM March 01, 2023 Specimen: [id number] Received: 02/28/23 Status: MELODIE Barton Num: [id number] Spec Type: Cytology Subm Dr: Pat Roberts MD Tissues: A FNA SLIDES PATH (RIGHT THYROID LOBE) Procedures: HE/2, -, DIFF QWIK/5, PAPSTN/6 Patient: ChiquitamauriceMinal brizuela Andres [id number] (Continued) Specimen: [id number] Received: 02/28/23 (Continued) Signed (signature on file) Tequila Sousa MD 03/01/23 1031 Specimen: [id number] Received: 02/28/23 Status: MELODIE Barton Num: [id number] Spec Type: Cytology Subm Dr: Pat Roberts MD Tissues: A FNA SLIDES PATH (RIGHT THYROID LOBE) Procedures: HE/2, -, DIFF QWIK/5, PAPSTN/6 Patient: Minal Caputo [id number] (Continued) Specimen: [id number] Received: 02/28/23 (Continued) Microscopic Description Two H E cell block slides reviewed. Ten smear slides and one ThinPrep slide received. Microscopic examination confirms the above diagnosis. CPT Codes 98445, 39234, 46669 Specimen: [id number] Received: 02/28/23 Status: MELODIE Barton Num: [id number] Spec Type: Cytology Subm Dr: Pat Roberts MD Tissues: A FNA SLIDES PATH (RIGHT THYROID LOBE) Procedures: HE/2, -, DIFF QWIK/5, PAPSTN/6 Patient: Minal Caputo [id number] (Continued) Signed (signature on file) Tequila Sousa MD 03/01/[address] [facility] - CoagulationOrde red By: Janet Dillard on 02-28-2023 PT Coag (PPP) [Time] 12.1 s 9.0-12.9 [facility] Platelet Counton 02-28-2023 Platelets (Bld) [#/Vol] 304 10*3/uL Normal 150-450 [facility] Comment on above: Result Comment: PERF ORMED BY: [place] [address] PATHOLOGIST RETURNED TELE[employer] EQUIPMENT APPRAISER SOLANGE ANN M.D. Performed By: #### P P, PLT #### [address] Platelet poor plasma interna tional normalized ratio (INR) by coagulation assay (relatOrdered By: Janet Dillard on 02-28-2023 INR Coag (PPP) [Relative time] 1.0 {INR} [facility] Comment on above: INR Therapeutic Rang e A) Pre- and Peroperative OAT started two weeks before surgery. NOT HIP SURGERY: 1.5 - 2.5 HIP SURGERY: 2 - 3B) Primary and secondary prevention of venous THROMBOSIS: 2 - 3C) Active venous thrombosis, pulmonary embolismand prevention of recurrent venous thrombosis: 2 - 3D) Prevention of arterial thromboembolismincluding patients with mechanical heart valves: 3 - 4.5 Platelets Auto (Bld) [#/Vol] Ordered By: Janet Dillard on 02-28-2023 Platelets (Bld) [#/Vol] 304 10*3/uL 150-450 [facility] US needle aspirationon 02-28 US needle aspiration [facility] [place] [id number] Ultrasound Report Signed Patient: Minal Caputo MR#: [id number] : 1955 Acct:[id number] Age/Sex: 67 / F ADM Date: 02/28/23 Loc: Room: Type: [facility] Attending Dr: Nikko Astorga DO Ordering Provider: Nikko Astorga DO Date of Service: 02/28/23 US/US needle aspiration: E04.1 Copies to: Nikko Astorga DO ULTRASOUND-GUIDED RIGHT THYROID NODULE BIOPSY CLINICAL DATA: Bilateral thyroid nodules on previous outside imaging COMPARISON: 03/29/2022 from [facility]. Real-time ultrasound evaluation of the thyroid was performed. There is a large, nearly isoechoic nodule at the midportion of the right thyroid lobe that has some smaller hypoechoic components. It measures at least 3.5 x 1.6 x 2.2 cm in size. There is prominent peripheral blood flow. At the inferior pole on the left there is a small residual hypoechoic nodular area measuring 8 x 6 x 6 mm. At the time of the comparison this area measured 2.0 x 1.6 x 1.2 cm. Because of the significant decrease in size of the left thyroid lesion, only the right nodule was biopsied. The procedure was discussed with the patient and consent was obtained. Following sterile preparation and local anesthesia with lidocaine, three 22-gauge fine-needle aspiration specimens were obtained under direct ultrasound visualization. Samples were submitted to pathology for preliminary analysis. The samples were predominantly blood. Two additional samples were subsequently obtained for cellblock. This lesion was previously biopsied October 02, 2022. At that time, there were similar results with predominantly blood and rare follicular groups. There were no immediate complications however patient was observed for a short period of time after the procedure due to elevated blood pressure. Patient did not take her blood pressure medication today. US/US needle aspiration IMPRESSION: STATUS POST ULTRASOUND-GUIDED BIOPSY OF A RIGHT THYROID NODULE. INTERVAL DECREASE IN SIZE OF NODULE SEEN PREVIOUSLY AT THE INFERIOR LEFT THYROID LOBE. Impression dictated by: Pat Roberts M.D.02/28/2023 3:33 PM Dictation Location: [place] [address] Tech: Betty Payne Transcribed By: ZULAY 02/28/23 1533 Dictated By: Pat Roberts MD 02/28/23 1524 Signed By: 02/28/23 1533 [facility] ANES POSTPROC EVALon 023 ANES POSTPROC EVAL HNO ID: [id number] Author: Suzanne Jacome MD Service: Anesthesiology Author Type: Anesthesiologist Type: Anesthesia Postprocedure Evaluation Filed: 02/11/2023 11:42 AM Note Text: POST ANESTHESIA EVALUATION NOTE : 1955 Procedure Summary Date: 02/11/23 Room / Location: Procedures Anesthesia Start: 1054 Anesthesia Stop: 1124 Procedures: COLONOSCOPY SCREENING EGD DIAGNOSTIC Diagnosis: Screening for colon cancer Gastroesophageal reflux disease, unspecified whether esophagitis present Hiatal hernia (High risk colon cancer surveillance: Personal history of colonic polyps) (Follow-up of gastro-esophageal reflux disease) Scheduled Providers: Princess Begum Jr., MD; Suzanne Jacome MD; Yoan Rivas APRN.DIETARY TECH; Judy Galdamez RN Responsible Provider: Suzanne Jacome MD Anesthesia Type: MAC ASA Status: 3 Anesthesia Type: MAC Last Vitals Vitals Value Taken Time BP 137/57 02/11/23 1132 Temp 36.1 ?C (97 ?F) 02/11/23 1122 HR SpO2 65 02/11/23 1132 Resp 13 02/11/23 1132 SpO2 94 % 02/11/23 1132 Post Anesthesia Patient Status Patient Evaluation: PACU. Neurological Status: aware and responsive. Pulmonary Status: breathing comfortably on room air Airway Control: returned to baseline unsupported. Cardiovascular Status: stable. Pain Management: clinically adequate Postoperative Hydration: acceptable. Intraoperative Events: no significant anesthesia events Post Operative Nausea/Vomiting Status: no significant post operative nausea or vomiting Recommendation: continue current plan of care. Anesthesia Observations No Documentation SIGNATURE: SUZANNE JACOME MD PATIENT NAME: Minal Caputo DATE: February 11, 2023 TIME: 11:41 AM CSN: [id number] [facility] ANES PRE-OPon 02-11-2023 ANE PRE-OP HNO ID: [id number] Author: Suzanne Jacome MD Service: Anesthesiology Author Type: Anesthesiologist Type: Anesthesia Preprocedure Evaluation Filed: 02/11/2023 10:02 AM Note Text: ANESTHESIOLOGY DAY OF SURGERY NOTE : 1955 Procedure Information Date/Time: 02/11/23 1030 Scheduled providers: Princess Begum Jr., MD; Suzanne Jacome MD; Yoan Rivas APRN.DIETARY TECH; Judy Galdamez RN Procedures: COLONOSCOPY SCREENING EGD DIAGNOSTIC Location: Procedures Estimated body mass index is 49.6 kg/m? as calculated from the following: Height as of 02/05/23: 160 cm (5' 3 ). Weight as of 02/05/23: 127 kg (280 lb). Most recent hematocrit and potassium results: Hematocrit 42.7 03/16/2022 Potassium 4.3 03/16/2022 Relevant Problems CARDIO (+) [place] (dyspnea on exertion) (+) Primary hypertension (+) Undiagnosed cardiac murmurs GI (+) GERD (gastroesophageal reflux disease) PULMONARY (+) COPD (chronic obstructive pulmonary disease) (HCC) (+) [place] (dyspnea on exertion) Musculoskeletal (+) Spinal stenosis, unspecified region other than cervical Other (+) Arthritis of both knees (+) Mitral valve disorders(424.0) (+) Morbid obesity with BMI of 50.0-59.9, adult (HCC) I - PHYSICAL EVALUATION AIRWAY Patient intubated: No. Tracheostomy tube not present Mallampati: II. TM distance: >3 FB. Neck ROM: full ROM without neurological symptoms. Mouth opening: adequate. Short neck: no. Thick neck: no DENTAL Normal dental observations. Dental findings: teeth intact. Additional exam findings: yes. CARDIOVASCULAR Rhythm: regular Rate: normal PULMONARY Breath sounds clear to auscultation. II - ANESTHESIA PLAN ASA Score: 3 Anesthetic Plan: MAC NPO Status: adequate Beta Rajan Monitoring Plan Monitoring plan: Standard ASA. Post Procedure Analgesic Plan Postoperative analgesic plan: parenteral or oral opioids and multimodal analgesia. Informed Consent Anesthetic risks, benefits, alternatives, personnel and consent discussed: yes. Patient / Responsible Green Party agrees to proceed: yes Patient / Surrogate agrees to blood products: blood products not planned DNR status not reviewed with patient and/or family prior to surgery. Significant changes in the patient condition since the History and Physical, not otherwise documented in primary service progress note: no. Potential Anesthesia issues that may suggest increased risk of complications or contraindication to planned procedure: none. No vitals data found for the desired time range. Outpatient Medications as of 02/11/2023 Medication Sig - naproxen (NAPROSYN) 500 mg tablet Take 1 tablet by mouth twice daily as needed. Take with food. - atorvastatin (LIPITOR) 20 mg tablet Take 1 tablet by mouth once daily. - losartan (COZAAR) 50 mg tablet Take 50 mg by mouth once daily. - esomeprazole magnesium (NEXIUM ORAL) Take 20 mg by mouth once daily. - furosemide (LASIX) 40 mg tablet Take 40 mg by mouth once daily. 80 mg every other day. - MULTIVITAMIN ORAL Take by mouth. - potassium chloride (K-TAB) 10 mEq tablet Take 10 mEq by mouth twice daily. - METOPROLOL 100 MG TAB Take one(1) tablet daily. Facility-Administered Medications as of 02/11/2023 Medication Dose Route Frequency - perflutren lipid microspheres 1.3 mL in NaCl (PF) 0.9% 10 mL injection (DEFINITY) INTRAVENOUS DIRECTED PRN - sodium chloride 0.9 % (flush) 10 mL (BD POSIFLUSH) 10 mL INTRAVENOUS DIRECTED PRN I have interviewed and examined the patient. I have reviewed the medical record and/or the pre-anesthesia evaluation, pertinent labs, and test results. This contains updated information obtained within 48 hours of Surgery/Procedure. SIGNATURE: SUZANNE JACOME MD PATIENT NAME: Minal Caputo DATE: February 11, 2023 TIME: 10:02 AM CSN: [id number] Normal [facility] Colonoscopyon 02-11-2023 Colonoscopy [facility] Gastrointestinal Endoscopy Patient Name: Minal Caputo Procedure Date: 02/11/2023 10:45 AM Date of : 1955 Admit Type: Outpatient Age: 67 Room: [place] [address] Gender: Female Note Status: Finalized Attending MD: Princess Begum Jr, MD Procedure: Colonoscopy Indications: High risk colon cancer surveillance: Personal history of colonic polyps Providers: Princess Begum Jr, MD Patient Profile: Last Colonoscopy: June 2016. Referring Physician: Nell Trujillo CNP (Referring MD) Medicines: Monitored Anesthesia Care Complications: No immediate complications. Requesting Provider: Procedure: Pre-Anesthesia Assessment: - Prior to the procedure, a History and Physical was performed, and patient medications and allergies were reviewed. The patient's tolerance of previous anesthesia was also reviewed. The risks and benefits of the procedure and the sedation options and risks were discussed with the patient. All questions were answered, and informed consent was obtained. Prior Anticoagulants: The patient has taken no anticoagulant or antiplatelet agents. ASA Grade Assessment: II - A patient with mild systemic disease. After reviewing the risks and benefits, the patient was deemed in satisfactory condition to undergo the procedure. After I obtained informed consent, the scope was passed under direct vision. Throughout the procedure, the patient's blood pressure, pulse, and oxygen saturations were monitored continuously. The Colonoscope was introduced through the anus and advanced to the cecum, identified by appendiceal orifice and ileocecal valve. The colonoscopy was performed with ease. The patient tolerated the procedure well. The quality of the bowel preparation was good. The ileocecal valve, appendiceal orifice, and rectum were photographed. Scope Withdrawal Time: 0 hours 6 minutes 32 seconds Moderate Sedation: MAC anesthesia was administered by the anesthesia team. Total Procedure Duration: 0 hours 9 minutes 40 seconds Findings: No masses on digital rectal exam Scattered diverticula were found in the entire colon. Non-bleeding internal hemorrhoids were found. The hemorrhoids were small. The exam was otherwise normal throughout the examined colon. Impression: - Diverticulosis in the entire examined colon. - Non-bleeding internal hemorrhoids. - No specimens collected. Recommendation: - Repeat colonoscopy in 10 years for screening purposes. - Patient has a contact number available for emergencies. The signs and symptoms of potential delayed complications were discussed with the patient. Return to normal activities tomorrow. Written discharge instructions were provided to the patient. - Continue present medications. - Resume previous diet. Procedure Code(s): --- Professional --- G0105, Colorectal cancer screening; colonoscopy on individual at high risk Diagnosis Code(s): --- Professional --- Z12.11, Encounter for screening for malignant neoplasm of colon Z86.010, Personal history of colonic polyps K64.8, Other hemorrhoids K57.30, Diverticulosis of large intestine without perforation or abscess without bleeding CPT copyright 2020 [employer]. All rights reserved. The codes documented in this report are preliminary and upon psychiatry resident review may be revised to meet current compliance requirements. Attending Participation: I personally performed the entire procedure. Scope In: 11:10:24 AM Scope Out: 11:20:04 AM MD Princess Schumacher Jr, MD 02/11/2023 11:22:51 AM This report has been signed electronically by Princess Begum Jr, MD Number of Addenda: 0 Note Initiated On: 02/11/2023 10:45 AM Estimated Blood Loss: Estimated blood loss: none. [facility] SURGICAL PATHOLOGYon 023 CASE REPORT [facility] Comment on above: Order Comment: Speci kalyn Type: TISSUE SPECIMEN Ordering Facility: [facility] Address: [address] [place] [address] Result Comment: Surg [facility] Pathology Report Case: [id number] Authorizing Provider: Princess Begum Jr., MD Collected: 02/11/2023 11:03 AM Ordering Location: Procedures Received: 02/11/2023 01:14 PM Pathologist: Davin Herzog MD Specimen: FUNDUS (STOMACH) BIOPSY, fundic gland polyps Performed By: #### S #### [employer] [facility] CLIA [id number] FINAL DIAGNOSIS Normal [facility] ital Comment on above: Order Comment: Speci men Type: TISSUE SPECIMEN Ordering Facility: [facility] Address: [address] Result Comment: Stom ach, polyps, biopsies: - Fundic gland polyps. JEL 02/12/2023 Performed By: #### S #### [employer] [facility] CLIA [id number] FINAL PERFORMING LAB [facility] Comment on above: Order Comment: Speci men Type: TISSUE SPECIMEN Ordering Facility: [facility] Address: [address] [place] [address] Result Comment: Diag nostic interpretation performed at [facility], [address] [place] [address] CLIA# [id number] [employer] Repairer: Jaleel Garza M.D. Performed By: #### S #### [facility] CLIA [id number] [address] [place] [address] GROSS DESCRIPTION Normal [facility] spital Comment on above: Order Comment: Speci men Type: TISSUE SPECIMEN Ordering Facility: [facility] Address: [address] [address] Result Comment: A. F UNDUS (STOMACH) BIOPSY Received in formalin are two pieces of parker, soft tissue aggregating to 0.7 x 0.2 x 0.2 cm. Totally submitted in one cassette. February 11, 2023 4:29 PM Gross examination performed at [facility], [address] [place] [address] Performed By: #### S #### [facility] CLIA [id number] [address] [place] [address] STATES OF [facility] Upper GI endoscopyon 023 Upper GI endoscopy [facility] Gastrointestinal Endoscopy Patient Name: Minal Caputo Procedure Date: 02/11/2023 10:48 AM Date of : 1955 Admit Type: Outpatient Age: 67 Room: [place] [address] Gender: Female Note Status: Finalized Attending MD: Princess Begum Jr, MD Procedure: Upper GI endoscopy Indications: Follow-up of gastro-esophageal reflux disease Providers: Princess Begum Jr, MD Referring Physician: Nell Trujillo CNP (Referring MD) Medicines: Monitored Anesthesia Care Complications: No immediate complications. Requesting Provider: Procedure: Pre-Anesthesia Assessment: - Prior to the procedure, a History and Physical was performed, and patient medications and allergies were reviewed. The patient's tolerance of previous anesthesia was also reviewed. The risks and benefits of the procedure and the sedation options and risks were discussed with the patient. All questions were answered, and informed consent was obtained. Prior Anticoagulants: The patient has taken no anticoagulant or antiplatelet agents. ASA Grade Assessment: II - A patient with mild systemic disease. After reviewing the risks and benefits, the patient was deemed in satisfactory condition to undergo the procedure. After obtaining informed consent, the endoscope was passed under direct vision. Throughout the procedure, the patient's blood pressure, pulse, and oxygen saturations were monitored continuously. The 3389 EGD was introduced through the mouth, and advanced to the second part of duodenum. The upper GI endoscopy was accomplished with ease. The patient tolerated the procedure well. Moderate Sedation: MAC anesthesia was administered by the anesthesia team. Total Procedure Duration: 0 hours 4 minutes 23 seconds Findings: A 3 cm hiatal hernia was present. The exam of the esophagus was otherwise normal. Multiple small sessile polyps were found in the gastric body. Biopsies were taken with a cold forceps for histology. The exam of the stomach was otherwise normal. The examined duodenum was normal. Impression: - 3 cm hiatal hernia. - Multiple gastric polyps. Biopsied. - Normal examined duodenum. Recommendation: - Await pathology results. Procedure Code(s): --- Professional --- 55150, Esophagogastroduodenoscopy , flexible, transoral; with biopsy, single or multiple Diagnosis Code(s): --- Professional --- K44.9, Diaphragmatic hernia without obstruction or gangrene K31.7, Polyp of stomach and duodenum K21.9, Gastro-esophageal reflux disease without esophagitis CPT copyright 2020 [employer]. All rights reserved. The codes documented in this report are preliminary and upon psychiatry resident review may be revised to meet current compliance requirements. Attending Participation: I personally performed the entire procedure. Scope In: 11:01:22 AM Scope Out: 11:05:45 AM MD Princess Schumacher Jr, MD 02/11/2023 11:08:03 AM This report has been signed electronically by Princess Begum Jr, MD Number of Addenda: 0 Note Initiated On: 02/11/2023 10:48 AM Estimated Blood Loss: Estimated blood loss: none. Normal [facility] CNOVon 02-07-2023 CNOV Normal [facility] CNOVon 02-05-2023 CNOV Normal [facility] ECG COMPLETEon 02-05-2023 ECG COMPLETE Normal [facility] HISTORY PHYSICALon 3 HISTORY PHYSICAL Normal [facility] CNPNon 01-30-2023 CNPN Normal [facility] HISTORY PHYSICALon 3 HISTORY PHYSICAL Normal [facility] CBC AUTO DIFFon 12-11-2022 BASO # 0.0 103/ul Normal 0[facility]0-0[facility]1 [facility] Comment on above: Performed By: #### C BC #### [facility] [address] [address] [address] Jessica Fall Basophils/100 WBC (Bld) 0.1 % Critically low 0.2-2.0 [facility] Comment on above: Performed By: #### C BC #### [facility] [address] [address] [address] Jessica Fall EO # 0.0 103/ul Normal 0.0-0.7 [facility] Comment on above: Performed By: #### C BC #### [facility] [address] [address] [address] Jessica Fall Eosinophils/100 WBC (Bld) 0.0 % Critically low 0.9-7.0 [facility] Comment on above: Performed By: #### C BC #### [facility] [address] [address] [address] Jessica Fall Erythrocyte distribution width (RBC) [Ratio] 13.9 % Normal 11.0-15.0 [facility] Comment on above: Performed By: #### C BC #### [facility] [address] [address] [address] Jessica Fall Hematocrit (Bld) [Volume fraction] 43.5 % Normal 36.0-48.0 [facility] Comment on above: Performed By: #### C BC #### [facility] [address] [place] [address] Dr. Jessica Fall Hemoglobin (Bld) [Mass/Vol] 14.6 g/dL Normal 12.0-16.0 [facility] Comment on above: Performed By: #### C BC #### [facility] [address] [address] [address] Jessica Fall IG # 0.18 10e3/ul Critically high 0.00-0.03 [facility] Comment on above: Performed By: #### C BC #### [facility] [address] [address] [address] Jessica Fall IG % 1.0 % Critically high 0.0-0.5 [facility] Comment on above: Performed By: #### C BC #### [facility] [address] [address] [address] Jessica Fall LYMPH # 1.5 103/ul Normal 1.2-3.8 [facility] Comment on above: Performed By: #### C BC #### [facility] [address] [place] [address] Dr. Jessica Fall Lymphocytes/100 WBC (Bld) 8.3 % Critically low 20.5-60.0 [facility] Comment on above: Performed By: #### C BC #### [facility] [address] [place] [address] Dr. Jessica Fall MANUAL DIFF REQ NO Normal [facility] Comment on above: Performed By: #### C BC #### [facility] [address] [place] [address] Dr. Jessica Fall MCH (RBC) [Entitic mass] 29.6 pg Normal 26.7-34.0 [facility] Comment on above: Performed By: #### C BC #### [facility] [address] [address] [address] Jessica Fall MCHC (RBC) [Mass/Vol] 33.6 g/dL Normal 29.9-35.2 [facility] Comment on above: Performed By: #### C BC #### [facility] [address] [place] [address] Dr. Jessica Fall MCV (RBC) [Entitic vol] 88.1 fL Normal 81.0-99.0 [facility] Comment on above: Performed By: #### C BC #### [facility] [address] [place], [place] [id number] Dr. Jessica Fall MONO # 0.7 103/ul Normal 0.3-0.8 [facility] Comment on above: Performed By: #### C BC #### [facility] [address] [place] [address] Dr. Jessica Fall Monocytes/100 WBC (Bld) 3.7 % Normal 1.7-12.0 [facility] Comment on above: Performed By: #### C BC #### [facility] [address] [place] [address] Dr. Jessica Fall NEUT # 15.6 103/ul Critically high 1.4-6.5 [facility] Comment on above: Performed By: #### C BC #### [facility] [address] [place] [address] Dr. Jessica Fall Neutrophils/100 WBC (Bld) 86.9 % Critically high 43.0-75.0 [facility] Comment on above: Performed By: #### C BC #### [facility] [address] [place] [address] Dr. Jessica Fall Platelet mean volume (Bld) [Entitic vol] 9.7 fL Normal 9.5-13.5 [facility] Comment on above: Performed By: #### C BC #### [facility] [address] [place] [address] Dr. Jessica Fall PLT 372 103/ul Normal 150-450 [facility] Comment on above: Performed By: #### C BC #### [facility] [address] [place] [address] Dr. Jessica Fall RBC 4.94 106/ul Normal 4.20-5.40 [facility] Comment on above: Performed By: #### C BC #### [facility] [address] [place] [address] Dr. Jessica Fall WBC 17.9 103/ul Critically high 4.0-11.0 [facility] Comment on above: Performed By: #### C BC #### [facility] [address] [place] [address] Dr. Jessica Fall PROF CHEM 8 (BAS METB)on Anion gap [Moles/Vol] 13.8 mmol/L Normal [facility] Comment on above: Performed By: #### B MP #### [facility] [address] [address] [address] Jessica Fall Calcium [Mass/Vol] 8.8 mg/dL Normal 8.5-10.1 [facility] Comment on above: Performed By: #### B MP #### [facility] [address] [address] [address] Jessica Fall Chloride [Moles/Vol] 104 mmol/L Normal 98-107 [facility] Comment on above: Performed By: #### B MP #### [facility] [address] [address] [address] Jessica Fall CO2 [Moles/Vol] 26.5 mmol/L Normal 21.0-32.0 [facility] Comment on above: Performed By: #### B MP #### [facility] [address] [place] [address] Dr. Jessica Fall Creatinine [Mass/Vol] 0.95 mg/dL Normal 0.55-1.02 [facility] Comment on above: Performed By: #### B MP #### [facility] [address] [place] [address] Dr. Jessica Fall EGFR-AF SPANISH >60 Normal >=60 [facility] Comment on above: Performed By: #### B MP #### [facility] [address] [address] [address] Jessica Fall EGFR-NON AF SPANISH 58 mL/min/1.73m2 Critically low >=60 [facility] Comment on above: Performed By: #### B MP #### [facility] [address] [address] [address] Jessica Fall Glucose [Mass/Vol] 246 mg/dL Critically high 74-106 [facility] Comment on above: Performed By: #### B MP #### [facility] [address] [address] [address] Jessica Fall Potassium [Moles/Vol] 4.3 mmol/L Normal 3.5-5.1 [facility] Comment on above: Performed By: #### B MP #### [facility] [address] [place] [address] Dr. Jessica Fall Sodium [Moles/Vol] 140 mmol/L Normal 136-145 [facility] Comment on above: Performed By: #### B MP #### [facility] [address] [place] [address] Dr. Jessica Fall Urea nitrogen [Mass/Vol] 19.0 mg/dL Critically high 7.0-18.0 [facility] Comment on above: Performed By: #### B MP #### [facility] [address] [place] [address] Dr. Jessica Fall Urea nitrogen/Creatinine [Mass ratio] 20.0 mg/mg Normal [facility] Comment on above: Performed By: #### B MP #### [facility] [address] [place] [address] Dr. Jessica Fall CBC AUTO DIFFon 12-10-2022 BASO # 0.0 103/ul Normal 0.0-0.1 [facility] Comment on above: Performed By: #### C BC #### [facility] [address] [place] [address] Dr. Jessica Fall Basophils/100 WBC (Bld) 0.2 % Normal 0.2-2.0 [facility] Comment on above: Performed By: #### C BC #### [facility] [address] [place] [address] Dr. Jessica Fall EO # 0.0 103/ul Normal 0.0-0.7 [facility] Comment on above: Performed By: #### C BC #### [facility] [address] [place] [address] Dr. Jessica Fall Eosinophils/100 WBC (Bld) 0.0 % Critically low 0.9-7.0 [facility] Comment on above: Performed By: #### C BC #### [facility] [address] [place] [address] Dr. Jessica Fall Erythrocyte distribution width (RBC) [Ratio] 14.2 % Normal 11.0-15.0 [facility] Comment on above: Performed By: #### C BC #### [facility] [address] [place] [address] Dr. Jessica Fall Hematocrit (Bld) [Volume fraction] 44.9 % Normal 36.0-48.0 [facility] Comment on above: Performed By: #### C BC #### [facility] [address] [place] [address] Dr. Jessica Fall Hemoglobin (Bld) [Mass/Vol] 14.9 g/dL Normal 12.0-16.0 [facility] Comment on above: Performed By: #### C BC #### [facility] [address] [place] [address] Dr. Jessica Fall IG # 0.08 10e3/ul Critically high 0.00-0.03 [facility] Comment on above: Performed By: #### C BC #### [facility] [address] [place] [address] Dr. Jessica Fall IG % 0.8 % Critically high 0.0-0.5 [facility] Comment on above: Performed By: #### C BC #### [facility] [address] [place] [address] Dr. Jessica Fall LYMPH # 1.3 103/ul Normal 1.2-3.8 [facility] Comment on above: Performed By: #### C BC #### [facility] [address] [place] [address] Dr. Jessica Fall Lymphocytes/100 WBC (Bld) 12.1 % Critically low 20.5-60.0 [facility] Comment on above: Performed By: #### C BC #### [facility] [address] [place] [address] Dr. Jessica Fall MANUAL DIFF REQ NO Normal [facility] Comment on above: Performed By: #### C BC #### [facility] [address] [place] [address] Dr. Jessica Fall MCH (RBC) [Entitic mass] 29.7 pg Normal 26.7-34.0 [facility] Comment on above: Performed By: #### C BC #### [facility] [address] [address] [address] Jessica Fall MCHC (RBC) [Mass/Vol] 33.2 g/dL Normal 29.9-35.2 [facility] Comment on above: Performed By: #### C BC #### [facility] [address] [address] [address] Jessica Fall MCV (RBC) [Entitic vol] 89.4 fL Normal 81.0-99.0 [facility] Comment on above: Performed By: #### C BC #### [facility] [address] [address] [address] Jessica Fall MONO # 0.1 103/ul Critically low 0.3-0.8 [facility] Comment on above: Performed By: #### C BC #### [facility] [address] [address] [address] Jessica Fall Monocytes/100 WBC (Bld) 1.2 % Critically low 1.7-12.0 [facility] Comment on above: Performed By: #### C BC #### [facility] [address] [place] [address] Dr. Jessica Fall NEUT # 8.9 103/ul Critically high 1.4-6.5 [facility] Comment on above: Performed By: #### C BC #### [facility] [address] [address] [address] Jessica Fall Neutrophils/100 WBC (Bld) 85.7 % Critically high 43.0-75.0 [facility] Comment on above: Performed By: #### C BC #### [facility] [address] [address] [address] Jessica Fall Platelet mean volume (Bld) [Entitic vol] 9.8 fL Normal 9.5-13.5 [facility] Comment on above: Performed By: #### C BC #### [facility] [address] [address] [address] Jessica Fall PLT 337 103/ul Normal 150-450 [facility] Comment on above: Performed By: #### C BC #### [facility] [address] [address] [address] Jessica Fall RBC 5.02 106/ul Normal 4.20-5.40 [facility] Comment on above: Performed By: #### C BC #### [facility] [address] [place] [address] Dr. Jessica Fall WBC 10.4 103/ul Normal 4.0-11.0 [facility] Comment on above: Performed By: #### C BC #### [facility] [address] [place] [address] Dr. Jessica Fall GLYCOHEMOGLOBIN A1Con 2022 ADA RECOMMENDATION SEE BELOW Normal [facility] Comment on above: Result Comment: ADA RECOMMENDED LIMIT 4.0 - 6.0 ADA THERAPEUTIC TARGET < 7.0 ACTION SUGGESTED > 7.0 Performed By: #### A 1C #### [facility] [address] [place] [address] Dr. Jessica Fall Glucose [Mass/Vol] 134 mg/dL Normal [facility] Comment on above: Performed By: #### A 1C #### [facility] [address] [place] [address] Dr. Jessica Fall HbA1c (Bld) [Mass fraction] 6.3 % Critically high 4.5-6.2 [facility] Comment on above: Performed By: #### A 1C #### [facility] [address] [place] [address] Dr. Jessica Fall PROF CHEM 8 (BAS METB)on Anion gap [Moles/Vol] 12.8 mmol/L [facility] Comment on above: Performed By: #### C BC #### [facility] [address] [place] [address] Dr. Jessica Fall Calcium [Mass/Vol] 8.8 mg/dL Normal 8.5-10.1 [facility] Comment on above: Performed By: #### C BC #### [facility] [address] [place] [address] Dr. Jessica Fall Chloride [Moles/Vol] 102 mmol/L Normal 98-107 [facility] Comment on above: Performed By: #### C BC #### [facility] [address] [place] [address] Dr. Jessica Fall CO2 [Moles/Vol] 26.2 mmol/L Normal 21.0-32.0 [facility] Comment on above: Performed By: #### C BC #### [facility] [address] [place] [address] Dr. Jessica Fall Creatinine [Mass/Vol] 1.01 mg/dL Normal 0.55-1.02 [facility] Comment on above: Performed By: #### C BC #### [facility] [address] [place] [address] Dr. Jessica Fall EGFR-AF SPANISH >60 Normal >=60 [facility] Comment on above: Performed By: #### C BC #### [facility] [address] [place] [address] Dr. Jessica Fall EGFR-NON AF SPANISH 55 mL/min/1.73m2 Critically low >=60 [facility] Comment on above: Performed By: #### C BC #### [facility] [address] [place] [address] Dr. Jessica Fall Glucose [Mass/Vol] 219 mg/dL Critically high 74-106 [facility] Comment on above: Performed By: #### C BC #### [facility] [address] [place] [address] Dr. Jessica Fall Potassium [Moles/Vol] 4.0 mmol/L Normal 3.5-5.1 [facility] Comment on above: Performed By: #### C BC #### [facility] [address] [place] [address] Dr. Jessica Fall Sodium [Moles/Vol] 137 mmol/L Normal 136-145 [facility] Comment on above: Performed By: #### C BC #### [facility] [address] [place] [address] Dr. Jessica Fall Urea nitrogen [Mass/Vol] 22.0 mg/dL Critically high 7.0-18.0 [facility] Comment on above: Performed By: #### C BC #### [facility] [address] [place] [address] Dr. Jessica Fall Urea nitrogen/Creatinine [Mass ratio] 21.8 mg/mg Normal [facility] Comment on above: Performed By: #### C BC #### [facility] [address] [place] [address] Dr. Jessica Fall BNPon 12-09-2022 Natriuretic peptide B (Bld) [Mass/Vol] 77.0 pg/mL Normal <=900.0 [facility] Comment on above: Performed By: #### C BC #### [facility] [address] [place] [address] Dr. Jessica Fall CBC AUTO DIFFon 12-09-2022 BASO # 0.1 103/ul Normal 0.0-0.1 [facility] Comment on above: Performed By: #### C BC #### [facility] [address] [place] [address] Dr. Jessica Fall Basophils/100 WBC (Bld) 0.5 % Normal 0.2-2.0 [facility] Comment on above: Performed By: #### C BC #### [facility] [address] [place] [address] Dr. Jessica Fall EO # 0.1 103/ul Normal 0.0-0.7 [facility] Comment on above: Performed By: #### C BC #### [facility] [address] [place] [address] Dr. Jessica Fall Eosinophils/100 WBC (Bld) 0.5 % Critically low 0.9-7.0 [facility] Comment on above: Performed By: #### C BC #### [facility] [address] [place] [address] Dr. Jessica Fall Erythrocyte distribution width (RBC) [Ratio] 14.1 % Normal 11.0-15.0 [facility] Comment on above: Performed By: #### C BC #### [facility] [address] [place] [address] Dr. Jessica Fall Hematocrit (Bld) [Volume fraction] 46.5 % Normal 36.0-48.0 [facility] Comment on above: Performed By: #### C BC #### [facility] [address] [place] [address] Dr. Jessica Fall Hemoglobin (Bld) [Mass/Vol] 15.6 g/dL Normal 12.0-16.0 [facility] Comment on above: Performed By: #### C BC #### [facility] [address] [place] [address] Dr. Jessica Fall IG # 0.07 10e3/ul Critically high 0.00-0.03 [facility] Comment on above: Performed By: #### C BC #### [facility] [address] [place] [address] Dr. Jessica Fall IG % 0.6 % Critically high 0.0-0.5 [facility] Comment on above: Performed By: #### C BC #### [facility] [address] [place] [address] Dr. Jessica Fall LYMPH # 4.5 103/ul Critically high 1.2-3.8 [facility] Comment on above: Performed By: #### C BC #### [facility] [address] [place] [address] Dr. Jessica Fall Lymphocytes/100 WBC (Bld) 40.1 % Normal 20.5-60.0 [facility] Comment on above: Performed By: #### C BC #### [facility] [address] [place] [address] Dr. Jessica Fall MANUAL DIFF REQ NO Normal [facility] Comment on above: Performed By: #### C BC #### [facility] [address] [place] [address] Dr. Jessica Fall MCH (RBC) [Entitic mass] 29.7 pg Normal 26.7-34.0 [facility] Comment on above: Performed By: #### C BC #### [facility] [address] [place] [address] Dr. Jessica Fall MCHC (RBC) [Mass/Vol] 33.5 g/dL Normal 29.9-35.2 [facility] Comment on above: Performed By: #### C BC #### [facility] [address] [place] [address] Dr. Jessica Fall MCV (RBC) [Entitic vol] 88.4 fL Normal 81.0-99.0 [facility] Comment on above: Performed By: #### C BC #### [facility] [address] [place] [address] Dr. Jessica Fall MONO # 0.8 103/ul Normal 0.3-0.8 [facility] Comment on above: Performed By: #### C BC #### [facility] [address] [place] [address] Dr. Jessica Fall Monocytes/100 WBC (Bld) 7.0 % Normal 1.7-12.0 [facility] Comment on above: Performed By: #### C BC #### [facility] [address] [place] [address] Dr. Jessica Fall NEUT # 5.8 103/ul Normal 1.4-6.5 [facility] Comment on above: Performed By: #### C BC #### [facility] [address] [place] [address] Dr. Jessica Fall Neutrophils/100 WBC (Bld) 51.3 % Normal 43.0-75.0 [facility] Comment on above: Performed By: #### C BC #### [facility] [address] [place] [address] Dr. Jessica Fall Platelet mean volume (Bld) [Entitic vol] 9.4 fL Critically low 9.5-13.5 [facility] Comment on above: Performed By: #### C BC #### [facility] [address] [place] [address] Dr. Jessica Fall PLT 354 103/ul Normal 150-450 [facility] Comment on above: Performed By: #### C BC #### [facility] [address] [place] [address] Dr. Jessica Fall RBC 5.26 106/ul Normal 4.20-5.40 [facility] Comment on above: Performed By: #### C BC #### [facility] [address] [address] [address] Jessica Fall WBC 11.3 103/ul Critically high 4.0-11.0 [facility] Comment on above: Performed By: #### C BC #### [facility] [address] [place], [place] [address] Dr. Jessica Fall CTA CHEST WO W CONon 023 CTA CHEST WO W CON EXAMINATION: CTA BASIM ST WO W CON HISTORY: SHORTNESS OF BREATH COMPARISON: None. TECHNIQUE: CT angiography of the pulmonary arteries following the administration of intravenous contrast. Coronal and sagittal MIP (maximum intensity projection) images were performed. Dose reduction techniques were achieved by using automated exposure control and/or adjustment of mA and/or kV according to patient size and/or use of iterative reconstruction technique. FINDINGS: VASCULATURE: No visible pulmonary arterial thrombus or attenuation. AORTA: Early calcification within the wall. No aneurysm or dissection. LUNGS/PLEURA: Left basilar atelectasis adjacent to a large hiatal hernia. Scattered fibrotic changes. No lobar or segmental consolidation.. YANETH: Normal. No mass or adenopathy. MEDIASTINUM: Normal. No mass or adenopathy. CARDIAC: No enlargement, pericardial thickening, or significant calcification. CHEST WALL: No mass or axillary adenopathy. LIMITED ABD: Limited images of the upper abdomen are unremarkable. BONES: Valadez rods bridge a right convexity thoracic scoliotic curve. No bony lesion or fracture. OTHER: Negative. CONCLUSION: Large hiatal hernia with associated left lower lobe atelectasis. No evidence for pulmonary embolism. Electronically authenticated by: Dharmesh LOPEZ Date: 2022-12-09 21:04 Normal [facility] INFLUENZA A AND B AGon 12-09 INFLUANEGH SEE BELOW Normal [facility] Comment on above: Result Comment: Nega tive for Flu A protein angiten. Infection due to Flu A cannot be ruled out. Flu A angiten in the sample may be below the detection limit of the test. Performed By: #### D DIM #### [facility] [address] [address] [address] Jessica Fall INFLUBNEGH SEE BELOW [facility] Comment on above: Result Comment: Nega tive for Flu B protein antigen. Infection due to Flu B cannot be ruled out. Flu B antigen in the sample may be below the detection limit of the test. Performed By: #### D DIM #### [facility] [address] [place] [address] Dr. Jessica Fall INFLUENZA A AG Negative Normal NEGATIVE SEE COMMENT [facility] Comment on above: Performed By: #### D DIM #### [facility] [address] [place] [address] Dr. Jessica Fall INFLUENZA B AG Negative Normal NEGATIVE SEE COMMENT [facility] Comment on above: Performed By: #### D DIM #### [facility] [address] [place] [address] Dr. Jessica Fall PROF CHEM 8 (BAS METB)on Anion gap [Moles/Vol] 15.6 mmol/L [facility] Comment on above: Performed By: #### C BC #### [facility] [address] [place] [address] Dr. Jessica Fall Calcium [Mass/Vol] 8.8 mg/dL Normal 8.5-10.1 [facility] Comment on above: Performed By: #### C BC #### [facility] [address] [place] [address] Dr. Jessica Fall Chloride [Moles/Vol] 104 mmol/L Normal 98-107 [facility] Comment on above: Performed By: #### C BC #### [facility] [address] [place] [address] Dr. Jessica Fall CO2 [Moles/Vol] 26.4 mmol/L Normal 21.0-32.0 [facility] Comment on above: Performed By: #### C BC #### [facility] [address] [place] [address] Dr. Jessica Fall Creatinine [Mass/Vol] 1.15 mg/dL Critically high 0.55-1.02 [facility] Comment on above: Performed By: #### C BC #### [facility] [address] [place] [address] Dr. Jessica Fall EGFR-AF SPANISH 57 mL/min/1.73m2 Critically low >=60 [facility] Comment on above: Performed By: #### C BC #### [facility] [address] [address] [address] Jessica Fall EGFR-NON AF SPANISH 47 mL/min/1.73m2 Critically low >=60 [facility] Comment on above: Performed By: #### C BC #### [facility] [address] [address] [address] Jessica Fall Glucose [Mass/Vol] 126 mg/dL Critically high 74-106 T [facility] Comment on above: Performed By: #### C BC #### [facility] [address] [place] [address] Dr. Jessica Fall Potassium [Moles/Vol] 4.0 mmol/L Normal 3.5-5.1 [facility] Comment on above: Performed By: #### C BC #### [facility] [address] [address] [address] Jessica Fall Sodium [Moles/Vol] 142 mmol/L Normal 136-145 [facility] Comment on above: Performed By: #### C BC #### [facility] [address] [place] [address] Dr. Jessica Fall Urea nitrogen [Mass/Vol] 25.0 mg/dL Critically high 7.0-18.0 [facility] Comment on above: Performed By: #### C BC #### [facility] [address] [place] [address] Dr. Jessica Fall Urea nitrogen/Creatinine [Mass ratio] 21.7 mg/mg [facility] Comment on above: Performed By: #### C BC #### [facility] [address] [place] [address] Dr. Jessica Fall RESPIRATORY PANEL PLUSon Adenovirus Not detected Normal NOT DETECTED [facility] Comment on above: Performed By: #### R SPLUS #### [facility] [address] [place] [address] Dr. Jessica Fall B. Parapertusis Not detected Normal NOT DETECTED [facility] Comment on above: Performed By: #### R SPLUS #### [facility] [address] [place] [address] Dr. Jessica Ferrara. Pertussis Not detected Normal NOT DETECTED [facility] Comment on above: Performed By: #### R SPLUS #### [facility] [address] [place] [address] Dr. Jessica Fall Chlamydia Pneumoniae Not detected Normal NOT DETECTED [facility] Comment on above: Performed By: #### R SPLUS #### [facility] [address] [place] [address] Dr. Jessica Fall Coronavirus 229E Not detected Normal NOT DETECTED [facility] Comment on above: Performed By: #### R SPLUS #### [facility] [address] [place] [address] Dr. Jessica Fall Coronavirus HKU1 Not detected Normal NOT DETECTED [facility] Comment on above: Performed By: #### R SPLUS #### [facility] [address] [place] [address] Dr. Jessica Fall Coronavirus NL63 Not detected Normal NOT DETECTED [facility] Comment on above: Performed By: #### R SPLUS #### [facility] [address] [place] [address] Dr. Jessica Fall Coronavirus OC43 Not detected Normal NOT DETECTED [facility] Comment on above: Performed By: #### R SPLUS #### [facility] [address] [place] [address] Dr. Jessica Fall Influenza A H1 Not detected Normal NOT DETECTED [facility] Comment on above: Performed By: #### R SPLUS #### [facility] [address] [place] [address] Dr. Jessica Fall Influenza A H1 2009 Not detected Normal NOT DETECTED [facility] Comment on above: Performed By: #### R SPLUS #### [facility] [address] [place] [address] Dr. Jessica Fall Influenza A H3 Not detected Normal NOT DETECTED [facility] Comment on above: Performed By: #### R SPLUS #### [facility] [address] [place] [address] Dr. Jessica Fall Influenza B Not detected Normal NOT DETECTED [facility] Comment on above: Performed By: #### R SPLUS #### [facility] [address] [place] [address] Dr. Jessica Fall Metapneumovirus Detected Abnormal NOT DETECTED [facility] Comment on above: Performed By: #### R SPLUS #### [facility] [address] [place] [address] Dr. Jessica Fall Mycoplas. Pneumoniae Not detected Normal NOT DETECTED [facility] Comment on above: Performed By: #### R SPLUS #### [facility] [address] [place] [address] Dr. Jessica Fall Parainfluenza 1 Not detected Normal NOT DETECTED [facility] Comment on above: Performed By: #### R SPLUS #### [facility] [address] [place] [address] Dr. Jessica Fall Parainfluenza 2 Not detected Normal NOT DETECTED [facility] Comment on above: Performed By: #### R SPLUS #### [facility] [address] [place] [address] Dr. Jessica Fall Parainfluenza 3 Not detected Normal NOT DETECTED [facility] Comment on above: Performed By: #### R SPLUS #### [facility] [address] [place] [address] Dr. Jessica Fall Parainfluenza 4 Not detected Normal NOT DETECTED [facility] Comment on above: Performed By: #### R SPLUS #### [facility] [address] [place] [address] Dr. Jessica Fall Rhino/Enterovirus Not detected Normal NOT DETECTED [facility] Comment on above: Performed By: #### R SPLUS #### [facility] [address] [place] [address] Dr. Jessica Fall RP2 Header 1 RESPIRATORY PANEL: VIRUSES Normal [facility] Comment on above: Performed By: #### R SPLUS #### [facility] [address] [place] [address] Dr. Jessica Fall RP2 Header 2 RESPIRATORY PANEL: BACTERIA Normal [facility] Comment on above: Performed By: #### R SPLUS #### [facility] [address] [place] [address] Dr. Jessica Fall RSV Not detected Normal NOT DETECTED [facility] Comment on above: Performed By: #### R SPLUS #### [facility] [address] [place] [address] Dr. Jessica Fall SARS-CoV-2 (COVID-19) RNA NORAH+probe Ql (Unsp spec) Not detected Normal NOT DETECTED [facility] Comment on above: Performed By: #### R SPLUS #### [facility] [address] [place] [address] Dr. Jessica Fall TROPONIN, HIGH SENSITIVITYon 12-09-2022 HSTROP 9.3 pg/mL Normal 4.0-51.3 [facility] Comment on above: Result Comment: CUT- OFF POINTS HAVE BEEN ESTABLISHED BASED ON THE FOURTH UNIVERSAL DEFINITIONS OF MYOCARDIAL INFARCTION. THE UPPER REFERENCE LIMIT (URL) OF TROPONIN, DEFINED THE 99TH PERCENTILE OF cTnI DISTRIBUTION IN A REFERENCE POPULATION, HAS BEEN CONFIRMED THE DECISION THRESHOLD FOR [place] DIAGNOSIS. Performed By: #### C BC #### [facility] [address] [place] [address] Dr. Jessica Fall XR CHEST 1 Von 12-09-2022 XR CHEST 1 V EXAM: XR CHEST 1 V HISTORY: cough COMPARISON: 03/13/2022 TECHNIQUE: AP portable study FINDINGS: Penetration is limited by body habitus. There is a left basilar infiltrate. The right lung is clear. Hazy density at the left lung base suggests a superimposed small left pleural effusion. Cardiomegaly is noted, stable in appearance. Valadez rods bridge a right convexity scoliotic curve of the lower thoracic spine. IMPRESSION: Cardiomegaly Left basilar infiltrate. Differential considerations include atelectasis versus pneumonia. Probable small left pleural effusion. Electronically authenticated by: Dharmesh LOPEZ Date: 2022-12-09 18:44 Normal [facility] COVID + FLU Quick Testingon 12-03-2022 SARS-CoV-2 (COVID-19) RNA NORAH+probe Ql (Unsp spec) Negative [facility] Other COVID + FLU Quick Testing Negative [facility] Other Lito 10-02-2022 L ------ Specimen: [id number] Received: 10/02/22 Status: MELODIE Barton Num: [id number] Spec Type: Cytology Subm Dr: Nikko Astorga DO Tissues: A FNA SLIDES NOPATH (RT THYROID NOD) B FNA SLIDES NOPATH (LT THYROID NOD) Procedures: HE/4, Cyto Int and Re/2, PAPSTN/34 Age/ Patient Sex Location Account Attending Physician Minal Caputo 66/F RONNY [id number] Nikko Astorga DO SPEC NUM: [id number] RECD: 10/02/22 STATUS: MELODIE BARTON NUM: [id number] KATERINE: 10/02/[address] [facility] [address]: Nikko Astorga DO ENTERED: 10/02/[address] [facility] DR: SPEC TYPE: Cytology DEPT: CNG ENTERED BY: [id number] RECV BY: [id number] ORDERED: HE/4, Cyto Int and Re/2, PAPSTN/34 ORDERED: HE/4, Cyto Int and Re/2, PAPSTN/34 Pathological Diagnosis A. Right thyroid, fine needle aspiration: - Nondiagnostic. - Predominantly blood, rare bland follicular group identified. - [place] Category I. B. Left thyroid, fine needle aspiration: - Nondiagnostic. - Virtually entirely blood, rare possible follicular group identified. - [place] Category I. Clinical Information Thyroid Nodule Gross Description Received is A. (right) 15 ml red cloudy unfixed fluid for cytology said to have been obtained as FNA (Fine Needle Aspiration)of Left Thyroid. ThinPrep and cell block preparations are prepared for microscopic examination. Also received are 16 smeared slides for microscopic examination.(WK/de) Received is B. (left) 15 ml red slightly cloudy unfixed fluid for cytology said to have been obtained as FNA (Fine Needle Aspiration) of Right Thyroid. ThinPrep and cell block Specimen: [id number] Received: 10/02/22 Status: MELODIE Barton Num: [id number] Spec Type: Cytology Subm Dr: Nikko Astorga DO Tissues: A FNA SLIDES NOPATH (RT THYROID NOD) B FNA SLIDES NOPATH (LT THYROID NOD) Procedures: HE/4, Cyto Int and Re/2, PAPSTN/34 Patient: Minal Caputo Andres [id number] (Continued) Specimen: [id number] Received: 10/02/22 (Continued) Gross Description (Continued) Signed (signature on file) Remberto Ayon MD 10/04/22 1538 Specimen: [id number] Received: 10/02/22 Status: MELODIE Barton Num: [id number] Spec Type: Cytology Subm Dr: Nikko Astorga DO Tissues: A FNA SLIDES TARAN (RT THYROID NOD) B FNA SLIDES NOPATH (LT THYROID NOD) Procedures: HE/4, Cyto Int and Re/2, PAPSTN/34 Patient: Minal Caputo [id number] (Continued) Specimen: [id number] Received: 10/02/22 (Continued) Gross Description (Continued) preparations are prepared for microscopic examination. Also received are 16 smeared slides for microscopic examination. (WK/nh) Microscopic Description A. Sixteen Pap stained smears, one Pap stained ThinPrep slide, and two H E stained cell block slides reviewed. B. Sixteen Pap stained smears, one Pap stained ThinPrep slide, and two H E stained cell block slides reviewed. Microscopic examination confirms the diagnosis. CPT Codes 90138 x 2, 05800 x 2 Specimen: [id number] Received: 10/02/22 Status: MELODIE Barton Num: [id number] Spec Type: Cytology Subm Dr: Nikko Astorga DO Tissues: A FNA SLIDES NOPATH (RT THYROID NOD) B FNA SLIDES NOPATH (LT THYROID NOD) Procedures: HE/4, Cyto Int and Re/2, PAPSTN/34 Patient: Mianl Caputo [id number] (Continued) Signed (signature on file) Remberto Ayon MD 10/04/22 1538 [facility] Urine Cultureon 08-12-2022 Bacteria identified Cx Nom (U) Reason for Exam Dysuria Urine ORGANISM: Escherichia coli (O:ESCCOL) Lyons Count >100,000 Aerobic JOSE Charge ([id number]) SUSCEPTIBILITY ORGANISM: O:ESCCOL ANTIBIOTIC INTERPRETATION JOSE Amikacin S <16 Amoxacillin/K Clavulanate S <8 Ampicillin S <8 Ampicillin/Sulbactam S <4 Aztreonam S <4 Cefazolin S <2 Cefepime S <2 Ceftazidime S <1 Ceftazidime/Avibactam S <4 Ceftolozane/Tazobactam S <2 Ceftriaxone S <1 Cefuroxime S <4 Ciprofloxacin S <0.25 Ertapenem S <0.5 Gentamicin S <2 Levofloxacin S <0.5 Meropenem S <1 Meropenem/Vaborbactam S <2 Nitrofurantoin S <32 Piperacillin/Tazobactam S <8 Tetracycline R >8 Tobramycin S <2 Trimethoprim/Sulfamethoxaz ole S <0.5 S = SUSCEPTIBLE I = INTERMEDIATE R = RESISTANT BLANK = DATA NOT AVAILABLE, OR DRUG NOT ADVISABLE OR TESTED R* = RESISTANCE DUE TO EXTENDED SPECTRUM BETA-LACTAMASES ESBL = EXTENDED SPECTRUM BETA-LACTAMASE TFG = THYMIDINE-DEPENDENT STRAIN LONNIE = BETA-LACTAMASE POSITIVE IB = INDUCIBLE BETA-LACTAMASE. APPEARS IN PLACE OF 'S' WITH SPECIES KNOWN TO POSSESS INDUCIBLE BETA-LACTAMASES. POTENTIALLY THEY MAY BECOME RESISTANT TO ALL B-LACTAM DRUGS. PERFORMED BY: [place] [address] PATHOLOGIST [employer]URNED [employer] APPRAISER SOLANGE ANN M.D. Normal [facility] Comment on above: Performed By: #### C UU #### [address] Urine culture routineOrdered By: DAYANNA SCHUMACHER on 08-12-2022 Bacteria identified Cx Nom (U) Escherichia coli [facility] ECH echo transthoracicon ECH echo transthoracic [facility] [place] [address] [place] [address] Echocardiogram Signed Patient: Minal Caputo MR#: [id number] : 1955 Acct:[id number] Age/Sex: 66 / F ADM Date: 07/02/22 Loc: Room: Type: [facility] Attending Dr: Kaylene Lilly DO Ordering Provider: Kaylene Lilly DO Date of Service: 07/02/2203/16/1546 ECH/ECH echo transthoracic: dyspnea;Dyspnea Copies to: Kaylene Fox MD Weight: 280 lb Performed By: Emerald Wallace RDCS BSA: 2.2 m2 HR: 82 Reason For Study: dyspnea;Dyspnea History: Afib. Murmur. HTN. HLD. COVID-19 (May 2022). Family history: Father-CHF. Interpretation Summary The left ventricular wall motion is normal. Mild concentric left ventricular hypertrophy. Ejection Fraction = 60-65%. A variety of Doppler measurements indicate impaired left ventricular relaxation, which is associated with grade I/IV or mild diastolic dysfunction. There is trace mitral regurgitation. There is no comparison study available. Procedure/Quality: A two-dimensional transthoracic echocardiogram with color flow and Doppler was performed. The study was technically good in quality. Left Ventricle: The left ventricular size is normal. Mild concentric left ventricular hypertrophy. Ejection Fraction = 60-65%. A variety of Doppler measurements indicate impaired left ventricular relaxation, which is associated with grade I/IV or mild diastolic dysfunction. The left ventricular wall motion is normal. Left Atrium: The left atrium appears normal in size. Right Atrium: The right atrium appears normal in size. Right Ventricle: The right ventricular size, thickness and function are normal. Aortic Valve: The aortic valve is normal in structure and function. No aortic regurgitation is present. Mitral Valve: The mitral valve is normal in structure and function. There is trace mitral regurgitation. Tricuspid Valve: The tricuspid valve is normal in structure and function. No tricuspid regurgitation. Pulmonic Valve: The pulmonic valve is normal in structure and function. Arteries: The aortic root is normal size. Pericardium/Pleura: No pericardial effusion seen. There is no pleural effusion. IVC/Hepatic Viens: The inferior vena cava is normal in size, with a normal collapsibility index. Measurements with Normals IVSd: 1.3 cm (0.7-1.1 cm)LVIDd: 3.4 cm (3.7-5.4 cm) LVPWd: 1.3 cm (0.7-1.1 cm)LVIDs: 2.2 cm (2.3-3.6 cm) LA dimension: 3.6 cm (2.3-4.0 cm)Ao root diam: 2.9 cm(2.0-3.6 cm) asc Aorta Diam: 3.2 cm(2.1-3.4cm) Doppler with Normals LV V1 max: 115.1 cm/sec (0.7-1.7m/s)MV E max tricia: 78.5 cm/sec(0.8-1.3m/s) MV A max tricia: 123.7 cm/sec(0.0-0.0m/s) MV E/A: 0.63 (<1.5) MMode/2D Measurements Calculations TAPSE: 1.9 cm FS: 33.4 % Ao root area: LVOT diam: 1.9 cm RV S Tricia: EDV(Teich): 6.7 cm2 LVOT area: 2.7 cm2 16.7 cm/sec 46.0 ml ESV(Teich): 16.9 ml EF(Teich): 63.3 % __ LVLd ap4: 7.4 cm SV(MOD-sp4): LAV(MOD-sp4): LA A2 area: 16.2 cm2 EDV(MOD-sp4): 29.8 ml 58.1 ml 54.1 ml LAV(MOD-sp2): LA A4 area: 21.5 cm2 LVLs ap4: 6.0 cm 40.6 ml LA length (vol): ESV(MOD-sp4): 6.5 cm 24.3 ml LA vol: 45.3 ml EF(MOD-sp4): 55.1 % LA vol index: 20.6 ml/m2 Doppler Measurements Calculations MV dec time: MV max PG: E/E' lat: 13.9 MV dec slope: 0.24 sec 32.0 mmHg E/E' med: 14.7 323.2 cm/sec2 __ Ao V2 max: LV V1 max PG: MR max tricia: RAP systole: 3.0 mmHg 136.3 cm/sec 5.3 mmHg 283.5 cm/sec Ao max PG: LV V1 mean PG: MR max P.4 mmHg 3.9 mmHg 32.2 mmHg Ao mean PG: LV V1 mean: 4.2 mmHg 96.1 cm/sec Ao V2 mean: LV V1 VTI: 20.6 cm 95.1 cm/sec Ao V2 VTI: 26.1 cm ANDRA(I,D): 2.1 cm2 ANDRA(V,D): 2.3 cm2 Transcribed By: BRIAN Performed At: 07/02/22 1556 Signed By: Kenzie Avina MD 07/02/[address] [facility] COVID Quick Testingon 2021 Result Positive [facility] Other XR HIP GENERAL 3V PELV/AP/LA T LEFTon 03-23-2022 [facility] CARDIAC JALEEL 3-6on 2 CK [Catalytic activity/Vol] 57 U/L Normal 26-192 [facility] Comment on above: Performed By: #### C BC #### [facility] [address] [address] [address] Jessica Fall CK.MB [Mass/Vol] 0.63 ng/mL Normal <=3.60 [facility] Comment on above: Performed By: #### C BC #### [facility] [address] [address] [address] Jessica Fall HSTROP 9.7 pg/mL Normal 4.0-51.3 [facility] Comment on above: Result Comment: CUT- OFF POINTS HAVE BEEN ESTABLISHED BASED ON THE FOURTH UNIVERSAL DEFINITIONS OF MYOCARDIAL INFARCTION. THE UPPER REFERENCE LIMIT (URL) OF TROPONIN, DEFINED THE 99TH PERCENTILE OF cTnI DISTRIBUTION IN A REFERENCE POPULATION, HAS BEEN CONFIRMED THE DECISION THRESHOLD FOR [place] DIAGNOSIS. Performed By: #### C BC #### [facility] [address] [address] [address] CSPINE WO CONon 2 CT CSPINE WO CON EXAM: CT CSPINE WO C ON 03/14/2022 12:42 AM EDT OH001 CLINICAL STATEMENT: pain COMPARISON: No prior studies are available at the time of dictation. TECHNIQUE: Helically acquired images were obtained of the cervical spine without contrast. AEC is utilized. 2D reformatted images were reviewed FINDINGS: Multilevel degenerative changes are noted. Posterior disc osteophyte complex with uncovertebral hypertrophy at C3-C4, C4-C5, C5-C6 and C6-C7. There is no acute fracture or subluxation. There is normal anatomic alignment. There is no prevertebral soft tissue swelling. Luschka joint and facet joint hypertrophy is noted. The visualized portions of the lung apices are clear. The visualized portions of the skull base are intact. IMPRESSION: Multilevel degenerative changes without evidence of acute fracture or subluxation. Posterior disc osteophyte complex with uncovertebral hypertrophy at C3-C4, C4-C5, C5-C6 and C6-C7. FOLLOW-UP: Follow-up as clinically indicated. Electronically authenticated by: CHRISTINE AVILES Date: 2022-03-14 01:54 Normal [facility] CT HEAD WO CONon 03-14-2022 CT HEAD WO CON EXAMINATION: CT HEAD WO CON HISTORY: WEAKNESS COMPARISON: None. TECHNIQUE: CT examination of the head without IV contrast. Dose reduction techniques were achieved by using automated exposure control and/or adjustment of mA and/or kV according to patient size and/or use of iterative reconstruction technique. FINDINGS: The cerebral sulci and ventricles are normal in size and shape. The density of the cerebrum, brainstem, and cerebellum is unremarkable. There is no evidence of intracranial hemorrhage, mass, or midline shift. No extra-axial fluid collection is seen. The brainstem and cerebellum are normal in appearance. There is mild mucosal thickening in the left sphenoid sinus. Otherwise, the visualized paranasal sinuses and mastoid air cells are clear. No skull abnormalities are identified. IMPRESSION: 1. No acute intracranial abnormality. Electronically authenticated by: Palomo RAM Date: 2022-03-14 03:31 Normal [facility] CT TSPINE WO CONon 2 CT TSPINE WO CON INDICATION: 66 years old; Female. Symptom/Location/Duration: Pain. TECHNIQUE: CT of the thoracic spine was performed. Axial, coronal, sagittal reformats were performed and reviewed. 3-D reformats were performed and reviewed for better evaluation of thoracic spine alignment. COMPARISON: Images from a CT the chest dated 03/12/2016. FINDINGS: POSTOPERATIVE CHANGES: There is redemonstration of extensive postoperative changes noted with diffuse fusion associated with Valadez ru fixation with laminar hooks. There is solid trabeculated bony fusion of the posterior elements as well as multilevel fusion across the disc spaces at the level of postsurgical change. Scoliosis is noted which is fused secondary to the postsurgical changes. Above and below the construct, there are expected degenerative changes with facet degeneration, disc space narrowing, endplate osteophyte formation, vacuum disc degeneration, and multilevel facet degeneration. These findings are all stable as compared to the prior study. No evidence of disruption of the construct is seen. The laminar hooks are in place at both ends of the construct. There is bony overgrowth covering the laminar hooks. Multilevel foraminal stenosis is seen secondary to the scoliosis. The appearance of the canal is unchanged although the cord is not evaluated in the CT examination. ALIGNMENT: Extensive scoliosis with postsurgical changes consistent with surgery and fusion. No acute subluxation. VERTEBRAE: No gross evidence of acute fracture is seen. No bone destruction is noted. No lytic or blastic lesions. DISC LEVELS: Disc are poorly evaluated due to the scoliosis. As noted in the post operative section, at the levels of fusion, the disc spaces are fused. Degenerative changes with disc space narrowing is seen above and below the fusion levels. SOFT TISSUES: Postsurgical changes in the posterior paraspinal soft tissues. There is worsened appearance of consolidation, scarring, or atelectasis in the left lower lobe associated with elevation of the hemidiaphragm. Cardiac enlargement is also noted. Vascular calcifications are seen. The study is not optimized for complete evaluation of the pulmonary parenchyma. OTHER: None. IMPRESSION: 1. Stable appearance of extensive postsurgical changes associated with scoliosis surgery with multilevel fusion and Valadez ru fixation. There is multiple levels of disc fusion. 2. Degenerative changes at multiple levels above and below the construct, consistent with long-standing fusion. 2. No fracture or bony displacement. Electronically authenticated by: RAKESH SOLARES Date: 2022-03-14 03:40 [facility] CHEST WO W CONon 022 CTA CHEST WO W CON EXAMINATION: CTA [facility] WO W CON HISTORY: CHEST PAIN, UNSPECIFIED , elevated d-dimer, posterior right chest and shoulder pain COMPARISON: CT abdomen pelvis 06/27/2021, CT thorax 03/12/2016 TECHNIQUE: Multi-planar CT images were created with IV contrast. Axial, Coronal, and Sagittal images. Dose reduction techniques were achieved by using automated exposure control and/or adjustment of mA and/or kV according to patient size and/or use of iterative reconstruction technique. 3-D reconstruction was performed on a separate workstation. FINDINGS: VASCULATURE: No pulmonary embolism or abnormal opacity. LUNGS: Mild passive atelectasis within posterior left lung base secondary to large hiatal hernia. PLEURA: No mass, effusion, or pneumothorax. YANETH: No mass or adenopathy. MEDIASTINUM: Large hiatal hernia within posterior mediastinum with majority of stomach and large amount of fat above the diaphragm. CARDIAC: No enlargement, pericardial effusion, or pericardial thickening. AORTA: No aneurysm or dissection. CHEST WALL: Bilateral thyroid nodules, largest on right, 1.5 cm. BONES: Scoliotic curvature thoracic spine with bilateral Valadez rods. LIMITED ABDOMEN: No suspicious findings. Limited images of the upper abdomen. OTHER: Negative. IMPRESSION: 1. No pulmonary embolism. 2. No acute pulmonary infiltrates. Mild passive atelectasis within left lung base secondary to a chronic large hiatal hernia. 3. Nonspecific bilateral thyroid nodules. Consider nonemergent ultrasound evaluation. Electronically authenticated by: GABBY GREY Date: 2022-03-13 22:22 Normal [facility] Covid-19 PCR (CVDTB)on 02-24 SARS-CoV-2 (COVID-19) RNA NORAH+probe Ql (Unsp spec) Not detected Normal NOT DETECTED [facility] Comment on above: Result Comment: When diagnostic testing is negative, the possibility of a false negative should be considered in the context of a patient's recent exposures and the presence of clinical signs and symptoms consistent with SARS-CoV-2. This test is not yet approved or cleared by the [place] FDA. When there are no FDA-approved or cleared tests available, and other criteria are met, FDA can make tests available under an emergency access mechanism called an Emergency Use Authorization (EUA). The EUA for this test is supported by the [employer] of Health and Human Service's declaration that circumstances exist to justify the emergency use of in vitro diagnostics for the detection and/or diagnosis of the virus that causes COVID-19. This EUA will remain in effect for the duration of the COVID-19 declaration justifying emergency of IVDs, unless it is terminated or revoked by the FDA (after which the test may no longer be used). Performed By: #### C VDTBH #### [facility] [address] [place] [address] Dr. Jessica Fall BNPon 03-13-2022 Natriuretic peptide B (Bld) [Mass/Vol] 87.0 pg/mL Normal <=900.0 [facility] Comment on above: Performed By: #### C MP, BNP, HSTROPN #### [facility] [address] [place] [address] Dr. Jessica Fall CARDIAC JALEEL 3-6on 2 CK [Catalytic activity/Vol] 61 U/L Normal 26-192 [facility] Comment on above: Performed By: #### D DIM #### [facility] [address] [place] [address] Dr. Jessica Fall CK.MB [Mass/Vol] 0.57 ng/mL Normal <=3.60 [facility] Comment on above: Performed By: #### D DIM #### [facility] [address] [place] [address] Dr. Jessica Fall HSTROP 8.9 pg/mL Normal 4.0-51.3 [facility] Comment on above: Result Comment: CUT- OFF POINTS HAVE BEEN ESTABLISHED BASED ON THE FOURTH UNIVERSAL DEFINITIONS OF MYOCARDIAL INFARCTION. THE UPPER REFERENCE LIMIT (URL) OF TROPONIN, DEFINED THE 99TH PERCENTILE OF cTnI DISTRIBUTION IN A REFERENCE POPULATION, HAS BEEN CONFIRMED THE DECISION THRESHOLD FOR [place] DIAGNOSIS. Performed By: #### D DIM #### [facility] [address] [place] [address] Dr. Jessica Fall CBC AUTO DIFFon 03-13-2022 BASO # 0.1 103/ul Normal 0.0-0.1 [facility] Comment on above: Performed By: #### C BC #### [facility] [address] [place] [address] Dr. Jessica Fall Basophils/100 WBC (Bld) 0.6 % Normal 0.2-2.0 [facility] Comment on above: Performed By: #### C BC #### [facility] [address] [place] [address] Dr. Jessica Fall EO # 0.2 103/ul Normal 0.0-0.7 [facility] Comment on above: Performed By: #### C BC #### [facility] [address] [place] [address] Dr. Jessica Fall Eosinophils/100 WBC (Bld) 2.6 % Normal 0.9-7.0 [facility] Comment on above: Performed By: #### C BC #### [facility] [address] [place] [address] Dr. Jessica Fall Erythrocyte distribution width (RBC) [Ratio] 13.3 % Normal 11.0-15.0 [facility] Comment on above: Performed By: #### C BC #### [facility] [address] [place] [address] Dr. Jessica Fall Hematocrit (Bld) [Volume fraction] 44.1 % Normal 36.0-48.0 [facility] Comment on above: Performed By: #### C BC #### [facility] [address] [place] [address] Dr. Jessica Fall Hemoglobin (Bld) [Mass/Vol] 14.6 g/dL Normal 12.0-16.0 [facility] Comment on above: Performed By: #### C BC #### [facility] [address] [place] [address] Dr. Jessica Fall IG # 0.02 10e3/ul Normal 0.00-0.03 [facility] Comment on above: Performed By: #### C BC #### [facility] [address] [place] [address] Dr. Jessica Fall IG % 0.2 % Normal 0.0-0.5 [facility] Comment on above: Performed By: #### C BC #### [facility] [address] [place] [address] Dr. Jessica Fall LYMPH # 2.5 103/ul Normal 1.2-3.8 [facility] Comment on above: Performed By: #### C BC #### [facility] [address] [place] [address] Dr. eJssica Fall Lymphocytes/100 WBC (Bld) 28.8 % Normal 20.5-60.0 [facility] Comment on above: Performed By: #### C BC #### [facility] [address] [place] [address] Dr. Jessica Fall MANUAL DIFF REQ NO Normal [facility] Comment on above: Performed By: #### C BC #### [facility] [address] [place] [address] Dr. Jessica Fall MCH (RBC) [Entitic mass] 30.2 pg Normal 26.7-34.0 [facility] Comment on above: Performed By: #### C BC #### [facility] [address] [place] [address] Dr. Jessica Fall MCHC (RBC) [Mass/Vol] 33.1 g/dL Normal 29.9-35.2 [facility] Comment on above: Performed By: #### C BC #### [facility] [address] [place] [address] Dr. Jessica Fall MCV (RBC) [Entitic vol] 91.1 fL Normal 81.0-99.0 [facility] Comment on above: Performed By: #### C BC #### [facility] [address] [place] [address] Dr. Jessica Fall MONO # 0.8 103/ul Normal 0.3-0.8 [facility] Comment on above: Performed By: #### C BC #### [facility] [address] [place] [address] Dr. Jessica Fall Monocytes/100 WBC (Bld) 8.8 % Normal 1.7-12.0 [facility] Comment on above: Performed By: #### C BC #### [facility] [address] [place] [address] Dr. Jessica Fall NEUT # 5.2 103/ul Normal 1.4-6.5 [facility] Comment on above: Performed By: #### C BC #### [facility] [address] [place] [address] Dr. Jessica Flal Neutrophils/100 WBC (Bld) 59.0 % Normal 43.0-75.0 [facility] Comment on above: Performed By: #### C BC #### [facility] [address] [place] [address] Dr. Jessica Fall Platelet mean volume (Bld) [Entitic vol] 10.1 fL Normal 9.5-13.5 [facility] Comment on above: Performed By: #### C BC #### [facility] [address] [address] [address] Jessica Fall PLT 301 103/ul Normal 150-450 [facility] Comment on above: Performed By: #### C BC #### [facility] [address] [place] [address] Dr. Jessica Fall RBC 4.84 106/ul Normal 4.20-5.40 [facility] Comment on above: Performed By: #### C BC #### [facility] [address] [place] [address] Dr. Jessica Fall WBC 8.8 103/ul Normal 4.0-11.0 [facility] Comment on above: Performed By: #### C BC #### [facility] [address] [place] [address] Dr. Jessica Fall D-DIMERon 03-13-2022 D-DIMER 0.82 mg/L FEU Critically high <=0.59 [facility] Comment on above: Performed By: #### D DIM #### [facility] [address] [place] [address] Dr. Jessica Fall D-DIMER COMMENTS SEE BELOW Normal [facility] Comment on above: Result Comment: Incr eases in D-Dimer concentration observed with thromboembolic events can be variable due to localization, size, and age of the thrombus. Therefore, a thromboembolic event cannot be diagnosed with certainty on the basis of the reference range. D-Dimers may also be elevated for a variety of disorders including: advanced age, , coronary disease, cancer, liver disease, infection, inflammation, hematoma, DIC, trauma, post-surgery, diabetes, thrombolytic or anticoagulant therapy, stress, and generalized hospitalization. Performed By: #### D DIM #### [facility] [address] [place] [address] Dr. Jessica Fall PROF 14(COMP METB)on 022 Albumin [Mass/Vol] 3.7 g/dL Normal 3.4-5.0 [facility] Comment on above: Performed By: #### C MP, BNP, HSTROPN #### [facility] [address] [place] [address] Dr. Jessica Fall Albumin/Globulin [Mass ratio] 1.1 {ratio} [facility] Comment on above: Performed By: #### C MP, BNP, HSTROPN #### [facility] [address] [place] [address] Dr. Jessica Fall ALP [Catalytic activity/Vol] 94 U/L Normal 46-116 [facility] Comment on above: Performed By: #### C MP, BNP, HSTROPN #### [facility] [address] [place] [address] Dr. Jessica Fall ALT [Catalytic activity/Vol] 50 U/L Normal 14-59 [facility] Comment on above: Performed By: #### C MP, BNP, HSTROPN #### [facility] [address] [place] [address] Dr. Jessica Fall Anion gap [Moles/Vol] 14.1 mmol/L [facility] Comment on above: Performed By: #### C MP, BNP, HSTROPN #### [facility] [address] [place] [address] Dr. Jessica Fall AST [Catalytic activity/Vol] 18 U/L Normal 15-37 [facility] Comment on above: Performed By: #### C MP, BNP, HSTROPN #### [facility] [address] [place] [address] Dr. Jessica Fall Bilirubin [Mass/Vol] 0.4 mg/dL Normal 0.2-1.0 [facility] Comment on above: Performed By: #### C MP, BNP, HSTROPN #### [facility] [address] [place] [address] Dr. Jessica Fall Calcium [Mass/Vol] 9.0 mg/dL Normal 8.5-10.1 [facility] Comment on above: Performed By: #### C MP, BNP, HSTROPN #### [facility] [address] [place] [address] Dr. Jessica Fall Chloride [Moles/Vol] 103 mmol/L Normal 98-107 [facility] Comment on above: Performed By: #### C MP, BNP, HSTROPN #### [facility] [address] [place] [address] Dr. Jessica Fall CO2 [Moles/Vol] 26.7 mmol/L Normal 21.0-32.0 [facility] Comment on above: Performed By: #### C MP, BNP, HSTROPN #### [facility] [address] [place] [address] Dr. Jessica Fall Creatinine [Mass/Vol] 1.17 mg/dL Critically high 0.55-1.02 [facility] Comment on above: Performed By: #### C MP, BNP, HSTROPN #### [facility] [address] [place] [address] Dr. Jessica Fall EGFR-AF SPANISH 56 mL/min/1.73m2 Critically low >=60 [facility] Comment on above: Performed By: #### C MP, BNP, HSTROPN #### [facility] [address] [place] [address] Dr. Jessica Fall EGFR-NON AF SPANISH 46 mL/min/1.73m2 Critically low >=60 [facility] Comment on above: Performed By: #### C MP, BNP, HSTROPN #### [facility] [address] [place] [address] Dr. Jessica Fall Globulin (S) [Mass/Vol] 3.4 g/dL [facility] Comment on above: Performed By: #### C MP, BNP, HSTROPN #### [facility] [address] [place] [address] Dr. Jessica Fall Glucose [Mass/Vol] 132 mg/dL Critically high 74-106 [facility] Comment on above: Performed By: #### C MP, BNP, HSTROPN #### [facility] [address] [place] [address] Dr. Jessica Fall Potassium [Moles/Vol] 3.8 mmol/L Normal 3.5-5.1 [facility] Comment on above: Performed By: #### C MP, BNP, HSTROPN #### [facility] [address] [place], [place] [id number] Dr. Jessica Fall Protein [Mass/Vol] 7.1 g/dL Normal 6.4-8.2 [facility] Comment on above: Performed By: #### C MP, BNP, HSTROPN #### [facility] [address] [place] [address] Dr. Jessica Fall Sodium [Moles/Vol] 140 mmol/L Normal 136-145 [facility] Comment on above: Performed By: #### C MP, BNP, HSTROPN #### [facility] [address] [address] [address] Jessica Fall Urea nitrogen [Mass/Vol] 17.0 mg/dL Normal 7.0-18.0 [facility] Comment on above: Performed By: #### C MP, BNP, HSTROPN #### [facility] [address] [place] [address] Dr. Jessica Fall Urea nitrogen/Creatinine [Mass ratio] 14.5 mg/mg [facility] Comment on above: Performed By: #### C MP, BNP, HSTROPN #### [facility] [address] [place] [address] Dr. Jessica Fall TROPONIN, HIGH SENSITIVITYon 03-13-2022 HSTROP 8.1 pg/mL Normal 4.0-51.3 [facility] Comment on above: Result Comment: CUT- OFF POINTS HAVE BEEN ESTABLISHED BASED ON THE FOURTH UNIVERSAL DEFINITIONS OF MYOCARDIAL INFARCTION. THE UPPER REFERENCE LIMIT (URL) OF TROPONIN, DEFINED THE 99TH PERCENTILE OF cTnI DISTRIBUTION IN A REFERENCE POPULATION, HAS BEEN CONFIRMED THE DECISION THRESHOLD FOR [place] DIAGNOSIS. Performed By: #### C MP, BNP, HSTROPN #### [facility] [address] [place] [address] Dr. Jessica Fall XR CHEST 1 Von 03-13-2022 XR CHEST 1 V EXAM: XR CHEST 1 V a t 1907 hours HISTORY: SHORTNESS OF BREATH COMPARISON: 11/18/2015 TECHNIQUE: AP upright portable chest x-ray FINDINGS: The study is technically limited, in part related to the patient's body habitus. The cardiac silhouette is enlarged without vascular congestion. The left lung base is obscured. The left upper and the right lung are clear. Scoliosis and hardware are noted in the spine. IMPRESSION: Limited study. The heart appears enlarged without overt cardiac decompensation. The left lung base is obscured. A definite infiltrate is not identified. Electronically authenticated by: CRISTINA FARIAS Date: 2022-03-13 19:44 Normal [facility] SCREENING MAMMOGRAM W/SULMA, BILATERAL*on 02-08-2022 SCREENING MAMMOGRAM W/SULMA, BILATERAL* COMPARISON: September 12, 2020, August 11, 2019 TECHNIQUE: 2D and 3D Tomosynthesis of the right and left breasts was performed. FINDINGS: Breast composition demonstrates scattered fibroglandular densities. RIGHT BREAST: Slight increase in size right outer periareolar 1.5 x 1.5 cm equal density mass, 5.5-6.0 cm from the nipple. Well-defined, irregular margins. No distortion or suspicious microcalcifications. LEFT BREAST: Increased distortion is seen about the identified left central breast asymmetry from the prior exam, current area of asymmetry also increased, 2.0 x 2.0 cm, epicenter 9 cm from the nipple. It is not clear whether this has been biopsied, as there are no interval examinations or history subsequent to the September 12, 2020 examination, which labeled as a Category 0 Incomplete Evaluation . No significant axillary lymphadenopathy. IMPRESSION: BIRADS 0: Additional imaging evaluation needed. Bilateral breast findings described above. If the patient's left breast has not had tissue sampling since the September 12, 2020 mammogram, at this time breast MRI may be of assistance to evaluate both breasts. Asymmetry: Visible on only one projection. Asymmetries that porcelain turner to be summation artifact are benign (BI-RADS 2). The BI-RADS [place] offers guidance regarding the other categories of asymmetries. Focal Asymmetry: Visible on two projections, involves less than one quadrant, lacks convex-outwards borders or is interspersed with fat. A solitary focal asymmetry (without architectural distortion, calcification, or underlying mass identified on diagnostic mammography and ultrasound) is assessed as BI-RADS 3 (likely benign). Developing Asymmetry: Focal asymmetry that is new, larger, or more conspicuous than on prior examinations. A developing asymmetry, unless shown to be characteristically benign such as a cyst on ultrasound, is assessed BI-RADS 4 (suspicious). An exception would be if there is a clear benign explanation, such as recent surgery, trauma, or infection at that site. Global Asymmetry: Visible on two projections, involves more than one quadrant. Global asymmetry, in the absence of palpable correlate, is assessed BI-RADS 2 (benign). Board Certified Radiologist. Accredited by the ACR and FDA. MAMMOGRAPHY IS VERY IMPORTANT TO YOUR HEALTH. THE CURRENT [place] [employer] GUIDELINES RECOMMENDS ANNUAL MAMMOGRAPHY BEGINNING AT AGE 40 THIS FACILITY USES A REMINDER SYSTEM TO ENSURE ALL PATIENTS RECEIVE REMINDER NOTIFICATIONS AT THE APPROPRIATE TIME BASED ON THE RECOMMENDATIONS OF THIS EXAM. Report reported and signed by Crow Tompkins on 02/09/2022 0728 Normal [facility] Specialist XR Chest 2 Views*on 08-24-20 XR Chest 2 Views* FINDINGS: Comparison made with prior examination of April 22, 2019. No new infiltrates, mass, or pulmonary edema. Mild linear density right peripheral/subpleural location of the mid/lower chest. Increased lung volumes consistent with COPD accentuated by thoracolumbar scoliosis. Thoracic scoliotic rods. IMPRESSION: COPD changes, mild increase in right lateral mid chest subsegmental atelectasis subpleural location may represent post-inflammatory sequela, appearance of which non-aggressive, unlikely acute Report reported and signed by Crow Tompkins on 08/28/2021 0724 Normal [facility] Specialist XR Hip Complete Left*on 07-28 XR Hip Complete Left* FINDINGS: Moderate bilateral superior medial hip joint space reduction is seen. Bilateral pincer deformities, left greater than right, with left sided acetabular overcoverage. No significant CAM deformities. Asymmetric thickening left femoral neck. No cortical or stress fracture is identified. Pelvic ring and sacral struts are intact. Soft tissues are relatively unremarkable. Lumbar scoliosis, distal fusion hardware. IMPRESSION: Moderate to severe osteoarthritis, left greater than the right Report reported and signed by Crow Tompkins on 08/28/2021 0727 Normal [facility] [employer] Inspector Reminderson 08-02-2021 Reminders - From: Jeannie Patten To: Yessi Brown; Sent: 07/03/2021 12:02:12 EST Show up: 07/17/2021 12:01:00 EST Subject: Reminder Message Reminder Message Please Remember to:_ PATIENT RELATED REMINDER:_ ( X ) Call Patient to schedule Renal US prior to next appointment at [facility] (08/02/2021) ( ) Ask Patient to ( ) Call Relative ( ) Schedule Patient ( ) Follow up on Results ( ) Other: PROVIDER RELATED REMINDER:_ ( ) Fire Alarm Technician ( ) Call Pharmacy ( ) Call Lab ( ) Other: Special Instructions:_ Comments:_ patient cancelled her 12-8 appointment and did not wish to reschedule, no need to track Normal [facility] COVID Quick Testingon 2020 Result Negative [employer]cam Other Coding Summary.on 07-07-2021 Coding Summary. CD:[id number] Gh0bWw +PGhlYWQ+UL8CEQPdG05kfKHcm T1OZ3hFTV4GNSTHWDXXWP5YNF9 koOT9HYbwR5IjbbLt ZxcyzPYjTI61UXn4XET7zHrgWM phvD7maMXqA2p1ElSrDU82hQ21 XPogHSHxWiI0RiUqdcyjbIJf T6cpKiBpaXEgKms+PHRhYmxlIH lsYXUkIPhyKXZwYsRfjTegRD8h Lb4sPAUfMCFpqGmmcKOjJbLn t9xyNKQmKSabIA0brDpzJ7RcmV B2EMOqz7p9Vl05mNB+PHRkIHN0 mXvjFQnef938AkLjg0zfSNF7 bSQqMJbqFIJ4O35kz4J0JLLaWL JpHMR6jKG7qV9teZdoiacmO3Gm cLRnFsK4YRK7iCCynI4guKsq edrfyE9wAey+I80KSF1PMVRNFE 0FRou6G6HaIsqshFB+YF21KNRx JP97tBDblTDsj3upbSz0GwEk CMBvCNI2gKnkANrzo8NdQEKaT2 7vtBHbr5X8LEUxyEutnBCjBrIc ySV3xT5qRHetmlqeo9wdnslk Vzggr9cmth45gJ66B65pWRljPK XfPTX1GHWfRYMjdUelrv4kvB0e Ii8+GWgdw6bap8clxZi1QbAm MIGzxzHmzGyuRWI7n2RxIw96C5 VgcKofl8BlLej6mq32oOGax4X0 iLE9UWvaNQCnjI5tRIipDwO5 XJOgVzXpiM47rFGrXJulPd2enN ywcKwoSN4wDOMsbfldUZQjsG9r HJIjyKVqmOdzUP0mPQStpdgf g210CtCuCNI2WOHppUYqG7OmnV 5sLzNyKDCiZHGnS5PcsSRoMAix C477FTcjKmO7WLRrkkCyB4Nf BOLjtQovZiV2i8F8Ci1Lk2Hcbz idMLM9GCbvOZSjNpWtKjLlJmA0 C1ZaVqv3VMYjhVvgTV9lY3Vg QXKsdhxasiifhVB0FBJaLFOdfN 14mMVvKKaeHr5fe5R8l656HCSs HQKmpO52Ae7eiLteNDZtwZIC cC4ozdcmz2zweezrSxVvYOJjRE m6WTm1XIDsrCupApWuQHS5DfB2 TOU3nSGedP4ncWgiqahkkQ2v Oyc+C31tmQ9mERI3CUS3xlhjAA XicmUpKT53LT63L2QcLbmwvTJg bGU+DXDyncGufDyoTC1aReFl j9seh4ErNRpsU0NdTPWwOLgpFy x7VKTwPXC5xEH0sU5zSHVsMJov s8A8sJU3I2CrnaIpya3bq4vm CMLnJFxwB43fwWLzu4Q5PRVwpE U0QTPgtPasJmErsH95Ksu+PGNv mIlkh8FuCvmol1otm3wkhQl4 JsXrNPFvtqOzyXptEPC7m2DsNr 01C17wAZsmYKVrQTAzZPAqIFEy xDdbah8hmH3wUk8+PGNvbCB3 oHX8gC5aNTKwDdB1MRynZ042Tn UluKIrWisaq4poa2eetPu6PoCf ICJaepEumZbmBOH5f6MtFw31 R38rODaaNGImTPKlMJEbLLJyvE piqp3adG6vFj6+TR6be5dgqi45 yZ97bZZ+UHVoTTX4tNkmEApm PIHefL9kTIfmPoW9KGSqRiClmM 94oMAiPVahUx6foMjdjBezYP0m WFIrxzldm574YfPgy3pmFEUv sHGeLTnaSIV0J05xj0V1ZBMyFB BhDUC4vFT8xJ9clRchgoxnuPEn sTydthNaeYhaPUquCXfcE232 IHRvcDsnPlBhdGllbnQgTmFtZT p8J5YrLdg8LVEowAzqUA9lrGHc HJbvXq8exPgqgCmiQW0iJIDr padyt538QlIak1wlCXPxaZBeQC kfBPT4K88kv6P8FTZhPEPeRZG3 vPP9yK5cxRygvwiijGZgrVzn txPmjMxcGPslUJeuC080BNPpzG uoCgFmadLyMKLfjPP9SJ71ZB46 bXNnr6F0qPX9P2QiJTUeslwa bxsyjIF9HRMfUKAwqL91Sy8dxJ plEh9iFYHjXDM7CDWzyJXeM5Gm mL3gPfRnDZDgUCEdI1YtlLEd NIvcO853HRunJrN8WSQswhCmE4 UuDMPcwLwcEnG1l6O0Jg3JH4W6 BF50LM03gMTkb7R3mID8R9It OUJklqpvdvcoeHM9TLXqDHMccA 87Xr0umHtuGb6zGUYwZNI9NCPl sTOfB7RkcX0nJzGfBLGhJIXl A3CxoYPrHPjwM327MDvjRyG9UD BlodNzA7QsYTRgdDxvTwK1j5K4 Em4MKRd8QK92QH85tRIjy2S6 oKC7M6XjBIMnmgtitrquhRL3UN KmDYGwkD39Ul2lbNzxNh7jUWAk NIN1XEPuzIAeG9QofD1fRkTf XKNdWTJuM3JkkAIjCDtrC981BQ obLyO6LHEkbiTgD4ZgUCJbdSis ZyX1g6W1Ih7SUWEyVA23WHK4 ySH0JD78AN88I7FjCfzqsVJgcG U+PHRhYmxlIHdpZHRoPScxMDAl DuSolQqpHB9kAb0uUPJbGDPp qMftnOCoHjAdq0xsPUCxAUvdLA 3gvQlcY1PdzGI7SSWfq4v8Nn60 B90uK8PjjQQ+TYMnqWZ3sNA5 sT3uDpIdQoZ4NQusY397ZcGfyT MiZjqda9zxg2lxrQn6NyN9QFGo fqJswXoeIJV9e1NdLc15I50t IHdpZHRoPSIxNSUiIHZhbGlnbj 7xpL4iOe8+ZWTzeTP0cMT0xM5z BmFqPsN2TFonR207TmHlvJZl Evowc4kcc2sfwDc5EpSaTHXcpe BipLwfKTU3q2FeGa79U1HzxVoa i5ViXps7xh26gGJjs5Z0tYU6 M7IcQHYrmjgybEFmkLudCT5tFZ ReyyayPVHmvB4eULDuP1b7RxRp VdZ4ROtaO5FzntN7HMIdgAGf CLecVDP1Z07xr8A3UKRgLUAoAR H6qEP6lJ8xrGkylxgzfDWvwXiz mvKfrOcvHOvzWUjmF876TTMp cEqkBERknW4tGYPkhJYowBnsPK 4wNTBpbjsnPldPTExFTlNMRUdF TCwgRElBTkEgSjwvdGQ+PHRk EIF4rPwkXHweQXYhwC4qBUCaG3 n6RuNkPwE3OSlxW7HpMRBirlsh Wa33nV8kJuVeKjY8GCzsH3Cb tpU4GNJwdAYnEOqxDQB6B86lh9 Z9SLAjZROhFIZ8cNJ5lM1yhPnv bjogbGVmdDsgdmVydGljYWwt EGoqJ911JLXbzWvzIiPjMzGdBx L6PQG9T6OuVmr5NXRmqYwrIN7j dKMvRJdsBf5gaOgivDmqNL3v FXTkvkeuNYGalR0mIMUmxUFwnJ hkZM5xZYSycutsf859PuDoAMH4 PJTkcSRcM1LdgT2oPoKzFJHg EUTlO4ZxvEDfECheY608VFhmBd J6YRDvwxLcH8IeLYUzwNhlUwR5 o8H2Jv68CmAPBAIvtlfuuAO+ HMBiVAM6mPqwVPleALPopK2xWW LgN7p5TgQbXoG9HKhdX6KfQXRx ekzhBw06zV9jEoAgBlL3OHrn B8AxdmU9FAAjqPKaKAevLEU4I3 8qv0X3XUXnMPXyGPT4nUZ9dE4k bGlnbjogbGVmdDsgdmVydGlj DGaiUGtuU570AABsxYowJxGaiL FsZTwvdGQ+OVBmBZG4bSgoZCid PNQavU2gTLNyV0j9EyZoYmZ1 HNwuB8PgVWKchzuyNi51gX5cIs ZtDbL0LRkkW7FuolR6AIHciGKw QSreNZV9A76bo0E1XUGcOJIj AXB8cIG0sR6yhWeyfjqzdIBhdO qlavPlcTwvCEtdFIqwW806APSs xCddKj1uy8BvfqW3nK3lIB32 PP50M2YhJvefcGJzoWH+PHRhYm xlIHdpZHRoPScxMDAlJyBzdHls FZ8sGl5kGERvQUJshSwkzODm RiQvu7shEGKuCBakYX2oxFlvP0 TezSF4GXWxb6o9Oh16Z13fP4Gw dXA+SEIwrEM4bNI7wL7bVnQu VmM3QRmbA934WwLijWSlCpawq0 lep1geeWb6NbPhCERhntUluSek ORX3g4FbFc17V96lSMmyGCLg EQCgVILxNLJbbKuntl9omG1oTp 8+ZRAmgFC2jVR4sW3iSqEqPyY8 PWgjS164RlIogZBqBkhgI51b Q0ByaPB+GHFlRid2IIEdpMsuRY 6moMCxSGqnZk5bIOS8VnNjUcWr WSzfT5WqXQRhukrpxevpfGT0 EHNnGOLjwG84Pr7liAkkDe6cKK LaFLC0UCPkiPFjD7XkrT1aQzHb BHQsNIVnL0WzkSMeQGiqG648 LQanNaU2OWOsapBmO8XlSABkeC zbQbR4j7F4Sz9AsLfkwAGrLW2k IlFmMSs4A2CuLto0PWBprQee NH3nsEAfJSonAq6yjYkcgGpvUM 3qJYNhpyxou651BvIcd8ywLGUk iFCjNTkbZIG1J08ve7T4MIYn ERVwXQE2kEC5aY3lnZgderagwM ZulEgutgMsgDitFEhiXUonF648 YLZoaOueKlIKXxu9V5RiOzn0 SRCzpJirCZ5ofMIfEWdbEn9ovI nfzHakFJ8nSVUuwpkld848LlXf r9uyOCQoeWLmLGfkHSU0P55r l5Q1TBMzPPEjXZO1tNY4fT1otF lnbjogbGVmdDsgdmVydGljYWwt NRdlC861LVOzvQiiYh8GZim2 X4ZuNaz9GUKktVgiCC9kiZWfZQ leMw2rgKelaJkwZA2jBWWxyftc p733VuTfy2alYRMxpODmBNey YEV8X94wk0D4NTGuCSCxMBW0kZ G1sW0mpZjlggflbNVptKtrlqVs jRszNCrfUOdyE739KKWgjUjf PlBheWVyOjwvdGQ+LT53rj81Z8 PqCjiaEpp1NIWkXMM6gDM9cO3v ONSlSDfml0F9oWK2W5SjhnCg ci1j (more content not included)... Normal [facility] Coding Summary. CD:[id number]:[id number] Gh0bWw +PGhlYWQ+EN2BYSRyD66ctAYek Y9BD0pLBX9RBYFWZJBODX2JEP1 zeRW3PNbbK4VsfbAw IupjkNMyVB76EHm2MBB9eJadVN eovQ4qpYJsF2w7MmIqZS93zN67 BShxRDEfTyC2XqXohtvyyUWo W4caQiPtwTCwPap+PHRhYmxlIH liCDKeISfgJQZaWeYzjXgwOB0j Mf9xSRVxAXOupXqoeYYuNbMc o3xiBNLaFCadML4scBvvD3DcvM J5MJCud4j6Ir23eLJ+PHRkIHN0 oPdoGKqqx464HmRqs2cjEOZ7 dPAfJJfgWIO1M46oe2W3MCQnSY UpJFM3hUC5wX1idClikceoU1Ny wWCgWsF9CFJ3kHNnvV9usPpz goqeaS2tOvc+Q55BSE8EXJVQMH 0DBgb1C9TaKdrcaVX+KI67XQWo EB35tOSegCFbp4fkzJq8YgOp PQUmPRN6eRegZGwax1EzZZDzY4 8ieNWjg9F3FZWjgOkqcKLrAuGq eAG6xT0rMJvltkixx3ssfvtb Hzarb3sutt70pM17A49uHEqqSD UrBCE8FTAqLPXezUskxf7kbV6x Ii8+FHxho5bqp8hbgUp3NuSj KETtwdRchGjqHIL6k1AuSb73T9 IpqMovw7KoZak4rp76cNMdq1W4 nXT1MPlbSETzoM0tNDqxOnU8 ZGPgBfEbiG13dNWbMTvdEs9qkI vniIbsYO8fPRWmaunaSQEwwC0r EOUfnPSfpVvmWA2tOXWomaiu n750HeCoOFZ6VSXnsZMeE2VxaZ 1zGeMuNKOkZFYcQ6XdmVHaCWll A497RNozIqR0CBKaunOsB0Mx DVFyvHkeGtS0a3P2Up5Jf5Cfga ihLTB4VQwlNLDzUzL3ZuAgVvU7 C3HeTyv1QNAvnOguPT5cW5Sv OFGydgiltqvxhPR4EPPlLDQnzD 49tUMtDKpwFm9ub0V6o968YBFb BLEqgP68Ym7bfGmrTWXkuJKV hV5zxiwls7maogoxNfAzCOFiQV z4VOo5NQBcuXbcLyLtQHR1ZoY8 UNC1iNWeuG1iaDgskkbiyG3f Oyc+K31zxW4cDEM3DKD2bgxeGB AxyaTwME74UK87M0ThSpggzBAo bGU+GCXgisKtmGrtPO6zPoMy g4ofj6UvEQdkM9VpAHEaVKgjEc c4LKJnQLZ8hVZ4oC5wGUSgNKmw j4S2gQT7A6BzipCjwn1xd1cg CPKuCSvrB55mnCPgq9C6FTWvnH E3WKEfuSvxWcMdaV83Tqy+PGNv sBxbu6GkDupcv9qul7bctJs2 JhZoLQQbkyRloUqhULH2f9YfYi 54E73oGWplBVGbWCLoXFWvYICz tWumbc9qlC3mGb0+PGNvbCB3 wAJ7xE8tIWEfPmV9XMqzV984Oq ZbbRUwDcazf9kql0yplEk5OfGk ECQsiaEcnVttFKO4h4LgBd78 W35zHEjbJZRvYUDxUQGvSAZqjG npsm6shU8tYz7+PG7sw6tera18 pW01qXM+JBZaUAT0bLhqQRnm RMKdsY4xCVpnSbX4PBHyNqXrfQ 74bLKsXCqoOd3vmXihyFlbEK1j GKRhmapqr581ZbUkz9ntZPVd lJDwTEdeWMY0X27dh3O3CUCkAS XwEVE1vXW2eN4dhApthgeuwBXk xApyfeHdxPfkJTzoTFghB834 IHRvcDsnPlBhdGllbnQgTmFtZT i7I3ZpOkk2RRDtpQnuMF7umIPb ZJerMc0weFlsmMmnEI4aUTFp xjpeg700UtLxy8hwBKBycVHtLH iyUIA7Z28fw1S7SIDoBBTzIUS3 hPT1hQ9qoOpjpqaglBGdnRbp jsKpzRrbQLgdNXpjX941FSPjjW uzGkVnjsNsYKTapMC2HS57CK93 rIVzc5T1bVD0R7IeZOUttefj tvjviUJ2QDCtSBQzvJ70Hh7dhQ yxQs2pIZIeVKY8SBQeuYMeS3Qo cD9zVvAtLLPwXZOeW3XedDJg DAajJ737KPrrVhY7FTCwkbCeS7 IyUIPlmDlnJaI1x4R3Ie5TS0W2 LE64NT78zTRsl1J5uIJ5L3Py KHHdkoaqyllgtSI6JFUxEMOuvP 20Ro7zfPmbDh6uRBXyEWT4JFWd jTOqA9NbaW6qBkCiLPYeEJKa X7PrsMUjNKorH885ODraSoK3SZ McbtLfB8SvCIOosYezAmH9r8O4 Ab4JKFa7IY77KO67qUAxg0J2 wIS8P2JbMRGbwlntzxkljWC1PI PnEVXwbD15Ky5usCefLe6lILTu KOG4ISRzvFJxG7MwyM7cQmYb PBDhLSPjW0SqjJSfUAitI199LV fxUgX3BMRbcgHaF6SxNWAotKvi CgF6m9O5Xy9WLQHoTZ02YWC9 iMC3TQ65NB98D4MvImpwhAQthS U+PHRhYmxlIHdpZHRoPScxMDAl SdRapLiiSV1mBe5sLUHfJEMd vSzjqSUmVfZbp5ljZCRtCBfgLH 9axGzaK6YvjZQ6DRInr7a4Bw43 Y33gP0SzvEL+QLHhjUN2vUM7 zN9bWsCaYzE1AUdxD210RbIyrH BwYxgzp7wdz3xofOz3OcT4MJQt igCtbSzzTKE1r4DwEy96I50n IHdpZHRoPSIxNSUiIHZhbGlnbj 9mxG2tUq4+VWTkbDB1eLT8cM7d FxLcTrO9BIugZ734EuUxwGHb Stott1lfd7uvkNl9HqSxPARavg LkvMkwGOU4y0XuOv91Y9ThsRji c7JgTyx6sj37sKWxo3Z1uVB2 O1IvWJNaohabbQObqKnmYF9tKD MkmxdlREJkbC7dTURjU5z2PrFn CvY7LOuqW8YlunM6XANdoJBl JYlvBYZ3C54co5X5KGVqVVXvEM T1zOR5yG5xaVzsiktaaFFhpFux wjHqnDgiCUhlGMcsB761WKWf tPwaEUDjhH4mKZQtjJAzvOfxHP 4wNTBpbjsnPldPTExFTlNMRUdF TCwgRElBTkEgSjwvdGQ+PHRk OWV5cXgbJYpyEBQwkK7gAIRuD0 f7ZvHhVdW1MGejK0GpVNTkxyxd Ey87dM7bOjMjXaX4RSsvG5Ms ymI9DOLgiRDpBTmrYSX4C04si3 L3GCMgNHOkNFR9dGP2nX0jzWbc bjogbGVmdDsgdmVydGljYWwt PMllY590BLTnuUirBmUaFlDrKy M6SAU4I9UyQhv3QEYmlSpoEO0e jJLvLKboQw2vpEblhPhtHB0n TAHxsdlsKMTtuR6uLFNzsHDknV ivCD4sNNQiicrml888NwUkBNF9 UTFsuPBkP5OkzO4mKzCwONZh CABzU0KujGRcBOroV044QSslLt P8ZHYmhtYuQ9MfILPshAmbUgA5 i2A2Xa64KqEPSQVtxhxjzUA+ JCUwSRK8eEzoIZfdTJWdvA7aOB LaJ1c7KeNlXdC4AJnhK4FaIZZq gxapSq57pC0zMaWwUyF0GOfb K9DwsbN7OMTvfKEmXTshHQM0K8 6zk0M9WEYvTHPsOEN3wJD1yE7n bGlnbjogbGVmdDsgdmVydGlj PSyuUJlyL088IFEzgCvaExJurV FsZTwvdGQ+OUXqFEK8iXqkDIlo LVJipX8lLWHwC4x4YkJiSjG3 UDcgZ8IaSVKsgajsVp32pR5oVs XlPtS1NImuV8GtfzD0FCFdzXYo QCpdTNJ3T25tf2A1BSEbTATr OKS3jCR9xZ7uvVvrkjxjsCCkvD uuiyFwaQtfICreWWfmB986QCCt aHveVl5dj1MxgpI1qL4pWB57 YI68O3AdGligqPOexZR+PHRhYm xlIHdpZHRoPScxMDAlJyBzdHls OC6dAe6eWZTdJFYfqLibaUMb HuGlj2ozYLLoLNaiAC5jbPsaG8 SuhVO1NKAvr3j0Av72F42eZ8Wt dXA+TLXzfCL0gWB8tV6kIuXj LgD7FLfyW147RuMdaWHmLcvxf1 xvv7kxsBk5IqPoQPJtfeXxyTkz SHA8q4AbNn68Y38zVOjfTKDc LSGdFUSyRIVltYqeuk6ypA6kLx 8+HBMvfND4mJQ8fE1dKkQwZtP0 NFdeM724AtHsuYHuInvxG87x Z1ZptCI+NTMjIvm2RSEftVahFB 7zvUWbOGwkYp1hERC6KcUeVfAf KDgpV6OlYDXdymmagvodoBM9 HRNsOELagA84Sn7krUzoHa5mRH PnFRL2BPXbvLTxN4QakY5fDuVy BOOhICBiB9OfxYLhLIfgS774 UYizEsC2YFFklgCwQ3FrFODvoW qrLyL3l1O0Mc4PlBcgaTAlGD9b QzSlPYp3A3DsQcy0OQOhmKdm EK0onQUcQRvpPf5abXcmgZxdQR 1cGXBrpgjns105ZgSch3fsXEWz nDIoQOqkISH8S28pz7P1VPJh BFMpBED4gTQ6yB5qhUvecfrefL TbrAjsjmKcyDyjPOfoBPkcD726 DOLteWcnMtFCAsl0Y0NqDcy0 FCPhkUiaQT2uqZQfRNtuWk8luC wvqYrgBD8mZYFdboclc609OmOg q7xyVXGsjZMcZRwwYVY3T18p g8K9NBVeSTAoTSE6eGV3iL3pwW lnbjogbGVmdDsgdmVydGljYWwt HQkfQ526JPOyfCraHg2MRpx0 O8AeQne6AWCjdShzEP1tiTKgCH zdEg8owOcjpIrsPE2cKMBfsvcj y799GfNxh5zkVQBzaKXsKKsp ITY2O93qe0S4YBYgPSLxWMU2oM W0yC3teBxpokjyeEQdcUbkdmLl eImxGLykSNcgF600VTOnfZjz PlBheWVyOjwvdGQ+AA87yd01L8 OhPklyYzh6PTOdPYG3yZS9xW9h DVIaKTiuy0G7aVH4F6AyarOt ci1j (more content not included)... Normal [facility] Coding Summary. CD:[id number] Gh0bWw +PGhlYWQ+JW1ERRUtS18cvVNev L0TE3zGEH3XDUQXAJFSEJ4QGS1 cjDY5SQpoD6GvigTg OaskeKXuLC08LKe6DVP5eYtdNZ qsjL9brOTyW2v6QvCqVP40fC43 DDsgMBUtYcE1CbOnmaiedSVs G3zlGsVygBJeVdd+PHRhYmxlIH biFJUhMFlsBDWiBgHqrNvcMP9d Kr5nZFJvVTOfePfscRPjDyOr i0wmLIWtMAcsYI0ulYxbT4QvuP E8KATld8x2Wh93lFD+PHRkIHN0 yGnkGWfkq534BhJgt2viCIT3 tDHgLBdcTFB9O13on8G6FPRpPW ZgTFM8aXL7nU1fcAuqftdwQ5Ws fKQxAdM2JST3zPNdcH2zwCls fsuscS9bKba+W49SQW0WIPVBET 7TUox6D4LrWczvkAV+CF85XYKq GZ69yAWkxEPxm8rbeUo2SsDo JMAiLEK8wGsgFUdml2YnBAIfF6 3qcEDxu3I3XMHyeMifrWSeQcCo aRU3uP4vVIgquzzrg7eqpzhw Bsxim1pneg73wR56E91tFEenDD AmAOB5COLdYGOyzBqpju0xcK9h Ii8+ZZxpj2miz5ybmYt2TgUi MEAskiLvkRjvDCE0s5RuMk98Q8 DycQusq9VhAlz9zz20zTCqa1V4 vEQ3QRerOUVzyF8mBMqqTaQ0 JYFyYnHlkM57xELtXBqeXq0hfK gnvIasKE6rZZQntdnpTMLkcH2r XIYynOTjpSeyNG0wFDCfaojv e059NxAmLRW5GPAnjJLtL0JbcB 3jWbKrSJEgJVAmF0PrlIKhMJyv K414JOgaLdA9GOGssaHoV2Oe VTQgbWfaKyO2v7E1Fq6Js1Uujv lwGHS5ASanCLHnLsJbTwNcWeV5 M2FtPzv6VECslZkyCM3pB5Sp UOAuggzoxxkbwYV1CGPdWGNmkK 15gTOlDUomBm1lm3L4g995BKGp XWAzdY74Oa2jeWvzMIRkhVDG yE6bztbqg6gsahuaBmCxNMYiQF g4VTk6MUWyuNfbWhCyZZK4LxG9 ZSE5hNVcpG9dsFzexbyepC2r Oyc+A11pdO3dIWP3PII3igzqGL BijdTwEX76ZO97Z5YlSofuhETg bGU+FOIlvhVbdFtoRT7yRsIi r8tbk2BgPMspA1PuIKIlGEjxYi n7ADNuMCN5tWA8mR9wWMTkMDen c7L1vDD9G1CsamBuur2wx4gc VUOxESzrD81vbQTfo1C2EGFmhK D3VIMwlGilHoRcmZ92Bns+PGNv xUqvh9BtWgnoo7pla2ihxKz6 RiFkVNPpfxTlfYzySHC1h5ExRp 60I68hIXhlBIItHPGeHMIlJUOu gPqesr7tsM6sSk7+PGNvbCB3 bKR6cW0bAXNtBsP7CFswY195Ye RmpBReOzmmz2blt8yhhQu9ZwSs ZOKfbvLmuFwgIEH7i1VaZi86 N38iBSlkIGJjNNBjXFFcYZGqfH rlkc9nvL2kXs8+WG5tf0iwlf24 cO38lZE+LKMzDTV9mHpwMZhu QEBttU3iHOhtVoN1DNEzGtUvzN 33eEJpHRojDc2ftTumjJcqRZ7e CQVbzrdix111TrWne1dqSFFn dSCjQBvpAHW9T59jt6Y8JXYzIC YtGQY5fYV6zW7mdUxpeudljQYi nMfgrbMjmXiuCGqvIAhoC345 IHRvcDsnPlBhdGllbnQgTmFtZT l8Q3BkVym3JFKhzBjrQU9enGMt XWuhRw4ypDnktPndQY7xZYNm bcsnp818HgGsd2mmOWHdmPAbQX uqRBL4D38oi0H5CWTfQYEsVBE5 lYG4vN5ouYndpsfheSNzvCkr goFdtUwkLSpxCYzeZ712EYNotX okGhAczuCsHOHivFE4JA57YV46 pKCgn9Y9zNW0Q5FkHMHefghc nlojhOS3KZJaTIHjaV40Ex5rsJ asGf0zBFMpGKD1ZTBdyDWhY8Vr aC5rCsFxBOFzGLPnL0OghAUu QLpnK807AQxcHgL1KYKojdCpW2 OeUIBshYgmHnL0m4D6Di3QM3F5 MW09YS24sBMrj6M0sPH9T2Oc YCEddwutgynyvNF5DAUgSLEpoB 27Lm0efMwtCb2uBLNkELX2KNOs eVUpX6MblX1fZfIhZBUdYLQn U5WewIUpUJfhN584BRjhCmY3MZ QmtcQsT7FdIONvpBazDsT5u6V9 Gb8TEMb0XI00FX10gXCgi4B1 uNP2G7QdCYEgrsypgibafVW8YW WgOERneQ59Kr3khFwiTe7jEFJb EWU7IMKodTKzF5SbkW0jJeEj BCFrOWUpW1IxoWXvZHdyE427OS flYxV5BKPlwxAiF1KxFUGsvLpp TcF5v6G8Qv9IYPAgBH13NHB0 aTM6AP60EY54K7AfWzexfEPczM U+PHRhYmxlIHdpZHRoPScxMDAl AvZznUyoDN7iTx3bFZUaJVYb vVoajLQdHnOfx8xoKYDhIAouYS 1juWakE8AtrGR0NKGfo6w8Cj92 J62vH8KkvTB+UQProPS7kRY2 yC1kYxCbGkY7HDpnR456ZaQpmE EmUfetw6kwi0ysaAc7OhY7IVRo uoNdeQnhNAR6v1IaWy71V99y IHdpZHRoPSIxNSUiIHZhbGlnbj 4peC6tQs5+LYQwqOP5gDP8jV4v YmGfWuJ5GRdbZ703UvWlpGRo Xsdne0anx7peiXk3LyFeGTFtfz JmbPrnETO1r0FoJh32E9UsvRqm f9AzGct2wy03rEMip9W7hUZ2 M6TtBHTiqmzanXSczDdiMX2dNY KyxuulKSXldJ7oADQzT5r9FoFw VyT9SEacP0VpraS6EZAsgTIs FYtnKKA1G84el4S2OROsOQVbPT M7cYT6zL7kdMcpkohhuIBajSzy icJxoTecKUreIPqvS454ZHPx tRuvRJFfbN5oOKXtoUTqkFqcTF 4wNTBpbjsnPldPTExFTlNMRUdF TCwgRElBTkEgSjwvdGQ+PHRk XEP7qXbsTGhgTVHxvM5aAFLrL0 v8SrHjRmQ6NSaqN2WjHOEhvgao Zo73hE7gPiPbJpT8JCqeR6Ic wbD7TJZjjAYfABzmSKL1G73zh2 X7DIWhDGArBQF5rRH3hA6feAvs bjogbGVmdDsgdmVydGljYWwt RUhqJ458VBDxbGrxRjUuOfPbYd V4DLV9O2TuRzs4XZUmySiaCR7z xBFbZEedUh5trChgkJehPR5k HHZbtfyvVWJtbR5kUQWijQFroM ofXW4gLRCyofuyj317PdMsEYA7 HYCioZAvU5AjzX6aFdZvOJFq WJIcS8ObxCFwGNetT565RYooUa J9RYFrkiFmA1AqBXMmaTisJfJ9 y9F8Rw95TuQVMOAflnsbzKP+ MLHeWVP9kMvlBUhkXMHqnX7yUG NqE5v4NrVgAoF2DBjrA4YyKXRq fehyMd40gP2bFxSjXsK6YRun C9FlbjS5SJVtjCQlQIsvSOL7B0 9ro8L5TETkBWKzLXC4nWK5yU9r bGlnbjogbGVmdDsgdmVydGlj JJmhZHktZ929WLLphEbqBuTeeV FsZTwvdGQ+JJNlHSD3pOmdATep OFPoyD2gIVDfI4s3YiLjIlG2 FLshH2CsNQZaeltpKc52eP7hYh JoOqF7GJmlB4JkogQ3RUPrwVXt EVscYYV6M65kn8P3FXDiHGPv YJB8gNS7fZ1zpLswxgkabXLgdM eikaMtoGsgEHumLFviF699DVDj sHdpQrLyWaOoORGpszanL5Fh ZTPCIRpxG1YuT7YmuPaxcPG+PC 79tt40R3FbMantGre4KDMsYFM1 lVX1sB8fAFYdREvld9N2hFD1 X1PbhsTnko1fs3giHTBePHcsM2 7piDAzv6D7JKJwnFE1JKGisXzr AqEtzF33Qcm+AKOgcUfqt3Dg Opryi8mto2kckVb9JrVpIAEsuz IyrIezMKF2o3BrIe72M06zQAej TBItEFYyBXHhWONsfFgizo0p cI4cQl1+HXUsqNH5sYZ2vX0gLy WfZgK7SMsyK848LbYyzYPfTbhf d3qzz3qtrXd1HiBfUDQdstTr wBwnRBS4k9WjMo59N9MfwUuvu6 CiMov6pl68yALng8Q0eNC5H8Ba KNThrcgifCJpzRcyQA9iVUEq zfqxFXFfbB8dRZHaF0i3OzIcGw X4ETrlA3BcihB9XDPsaWTmSIMo iICLoW1fthsuo1owkzdwCoGq JKJcUXq3MDd2GQKzoZumKiNoYF V5TgF3DEJ0yULvsU8krDxojenn aW1cGjq+LHa5g9vyzEMiSI2h iNZ1MB37AL09wNHdc1J0eAP3X1 IlVZMmwrbriwivzOT9PJAdPKHz pA87Jz5wqMhqXu0sVTHzHVD6 MFWkxSRrP4IpnQ7eDwRjJETbAL CyH9QsxOMwSHumM462CZauGcL3 UOCoajIfN5WaALFhqQdmZkH3 d7O7Qk5KNV87ZZ29SU22tAYul7 H6eKG9F3LoKKDhgirqhbnqkDH3 LHWsXSYzvQ09Gq3qrZzgVs6o YBIbAWM4NSCwiPZeB6SrsS5bAc BeUVWyEZLbI6ZiyPJvAZdjV701 VCfrCfI6DLZtjzLgO4ErHQJj iGxgXqT8h6M3Gb5RQz01ZT51SA 44vLJtc3R8fSW6R1RgCKPucsyf htlorYR5MHFtKGQspG44Is6a mVcfCp4hKDLmFWG8BVSqoHMkG2 LpjH7lQqXoYHHoVIHdE6OndKOt KMykM856UNwsHaW4BVNcznSd O4TpZOZyrVroCjF2f8S5Vx1WFH yazxa6C7CdQcziqIJ+QN26VMXw MN79qFTdoDJoe9pqyFt6FcNn MCUn (more content not included)... Normal [facility] Discharge Instructionson Discharge Instructions [id number]#[id number]:[address] [facility] Lab Reportson 06-30-2021 Lab Reports [id number]#[id number]:[address] [facility] Message from Medicare Message from Medicare [id number]#[id number]:[address] [facility] RAD - CT Reporton 06-30-2021 RAD - CT Report [id number]#1.00CD:[address] [facility] BMPon 06-29-2021 Anion gap [Moles/Vol] 15 mmol/L Normal 6-16 [facility] Comment on above: Performed By: #### 2 [id number], [id number] #### [facility] [address] [place] [address] Calcium [Mass/Vol] 8.6 mg/dL Low 8.9-11.1 [facility] Comment on above: Performed By: #### 2 [id number], [id number] #### [facility] [address] [place] [address] Chloride [Moles/Vol] 104 mmol/L Normal 101-111 [facility] Comment on above: Performed By: #### 2 [id number], [id number] #### [facility] [address] [place] [address] CO2 [Moles/Vol] 23 mmol/L Normal 21-31 [facility] Comment on above: Performed By: #### 2 [id number], [id number] #### [facility] [address] [place] [address] Creatinine [Mass/Vol] 1.0 mg/dL Normal 0.5-1.3 [facility] Comment on above: Performed By: #### 2 [id number], [id number] #### [facility] [address] [place] [address] Glucose [Mass/Vol] 107 mg/dL Normal 55-199 [facility] Comment on above: Result Comment: If t his glucose result represents a fasting glucose, interpretation should refer to the following reference range: 55-99 mg/dL Performed By: #### 2 [id number], [id number] #### [facility] [address] [place] [address] Potassium [Moles/Vol] 4.5 mmol/L Normal 3.5-5.3 [facility] Comment on above: Performed By: #### 2 [id number], [id number] #### [facility] [address] [place] [address] Sodium [Moles/Vol] 137 mmol/L Normal 135-145 [facility] Comment on above: Performed By: #### 2 [id number], [id number] #### [facility] [address] [place] [address] Urea nitrogen [Mass/Vol] 21 mg/dL Normal 5-21 [facility] Comment on above: Performed By: #### 2 [id number], [id number] #### [facility] [address] [place] [address] Urea nitrogen/Creatinine [Mass ratio] 21 No Units High 10-20 [facility] Comment on above: Performed By: #### 2 [id number], [id number] #### [facility] [address] [place] [address] Inpatient Clinical Summaryon 06-29-2021 Inpatient Clinical Summary [address] [address] Clinical Summary Person Information: Name: MINAL CAPUTO Age: 65 Years : 1955 Sex: Female PCP: EFREN AMANDA MD Marital Status: Race: White Ethnicity: Non- or Language: Singaporean Visit Id: Visit Reason: New onset afib Speciality: Acuity: Enc Type: Observation Med Service: Medical Arrival: 06/28/2021 15:07:59 Discharge: Dispo Type: Address: [address] [place] [id number] Provider Notes: Diagnosis: 1:Premature atrial beat; 2:Kidney stone; 3:COPD mixed type; 4:Hypertension; 5:Acid reflux; 6:DVT prophylaxis Problems Active Menopause Acid reflux Back pain Afib Kidney stone Feeling of incomplete bladder emptying Abdominal pain Hydronephrosis with obstructing calculus Hypertension COPD mixed type Arthritis Smoking Status: Never Smoker Functional Status: Sensory Deficits: History of Falls: Mobility Assistance Prior to Admission: Independent ADLs: Independent Current Level of Assistance for Self-Care/Mobility: Cognitive Status: Oriented x 3 Allergies sulfa drugs (Rash) Adhesive Bandage (Rash) fentaNYL (difficult to arouse) Measurements: Height: Weight: 129.6 kg Blood Pressure: 177 mmHg / 91 mmHg BMI: Procedures No Procedures Documented Immunizations No Immunizations Documented This Visit Final Med List: acetaminophen (acetaminophen 325 mg Tab) 2 Tablets By Mouth every 6 hours as needed Pain. atorvastatin (atorvastatin 20 mg Tab) 1 Tablets By Mouth every day. cholecalciferol (Vitamin D3) unknown dose By Mouth every day. docusate (Colace 100 mg Cap) 1 Capsules By Mouth 2 times a day. esomeprazole (Nexium 20 mg Cap-DR) 1 Capsules By Mouth every day. furosemide (furosemide 20 mg Tab) 1 Tablets By Mouth every day. metoprolol (metoprolol 100 mg ER Tab) 1 Tablets By Mouth every day. multivitamin with minerals (Multivitamins and Minerals) one tab By Mouth every day. potassium chloride (Klor Con 10 mEq Cap-ER) 1 Tablets By Mouth every day. tamsulosin 0.4 Milligram By Mouth every day. Care Team Members: Attending Physician: Terrell IVY MD Consulting Physician: Ignacio HATHAWAY, Judy Black Referring Physician: Follow up: With: Address: When: EFREN AMANDA [address] [place] [address] Business (1) Within 5 to 7 days Type Location Start [facility] Surgery [facility] Surgical Services 06/29/2021 5:00 PM 06/29/2021 5:46 PM Confirmed Patient Education Information: Kidney Stones, Subz-[id number]-Ooyl Normal [facility] Inpatient Patient Summaryon 06-29-2021 Inpatient Patient Summary [address] [address] Patient Discharge Instructions PERSON INFORMATION Name: MINAL CAPUTO Date of : 1955 Current Date: 06/29/2021 17:34:14 PHYSICIANS Admitting Physician: Terrell IVY MD Primary Care Physician: EFREN AMANDA MD PCP Comment: Discharge Diagnosis: 1:Premature atrial beat; 2:Kidney stone; 3:COPD mixed type; 4:Hypertension; 5:Acid reflux; 6:DVT prophylaxis Condition at Discharge: Improved MINAL CAPUTO has been given the following list of follow-up instructions, prescriptions, and patient education materials: PATIENT FOLLOW-UP INFORMATION Diet: Regular, Fat Modified- Low cholesterol, Low Sodium- 2000 mg Discharge Activity: Ambulate as tolerated, Activity as tolerated Discharge Restrictions: No restrictions Wound Care Instructions: Remove Your Dressing In Days Call Your Doctor For: IF UNABLE TO CONTACT YOUR PHYSICIAN AND YOU FEEL IT IS AN EMERGENCY, GO TO THE NEAREST EMERGENCY ROOM OR CALL 911 Home Treatment: Devices/Equipment: Special Services: Additional Instructions: Follow up with PCP Stay well hydrated with water Primary Care Physician to provide the following pending test results: Follow up: With: Address: When: EFREN AMANDA [address] [place] [address] Business (1) Within 5 to 7 days In the event that this physician does not participate in your insurance network, please consult with your insurance company to find a nearby participating provider. Type Location [facility] Surgical Services 06/29/2021 5:00 PM 06/29/2021 5:46 PM Confirmed Comment: IPATITO DIANA J, have received the attached patient education materials/instructions and have verbalized understanding: Patient Signature __ Date Clinican/Nurse Signature Date HERE ARE THE MEDICATION CHANGES THAT OCCURRED DURING YOUR HOSPITAL STAY New Medications Other Medications acetaminophen (acetaminophen 325 mg Tab) 2 Tablets By Mouth every 6 hours as needed Pain. Last Dose: N ext Dose: docusate (Colace 100 mg Cap) 1 Capsules By Mouth 2 times a day. Last Dose: N ext Dose: Medications to Continue with No Changes Other Medications atorvastatin (atorvastatin 20 mg Tab) 1 Tablets By Mouth every day. Last Dose: N ext Dose: cholecalciferol (Vitamin D3) unknown dose By Mouth every day. Last Dose: N ext Dose: esomeprazole (Nexium 20 mg Cap-DR) 1 Capsules By Mouth every day. Last Dose: N ext Dose: furosemide (furosemide 20 mg Tab) 1 Tablets By Mouth every day. Last Dose: N ext Dose: metoprolol (metoprolol 100 mg ER Tab) 1 Tablets By Mouth every day. Last Dose: N ext Dose: multivitamin with minerals (Multivitamins and Minerals) one tab By Mouth every day. Last Dose: N ext Dose: potassium chloride (Klor Con 10 mEq Cap-ER) 1 Tablets By Mouth every day. Last Dose: N ext Dose: tamsulosin 0.4 Milligram By Mouth every day. Last Dose: N ext Dose: No Longer Take the Following Medications acetaminophen-oxycodone (Percocet 5 mg-325 mg oral tablet) 1 Tablets By Mouth every 6 hours as needed as needed for pain. ketorolac unknown dose By Mouth every 6 hours as needed as needed for pain. Comment: MEDICATION LIST PROVIDED FOR YOU IS A LIST OF YOUR CURRENT MEDICATIONS. PLEASE CARRY THIS WITH YOU AT ALL TIMES. acetaminophen (acetaminophen 325 mg Tab) 2 Tablets By Mouth every 6 hours as needed Pain. atorvastatin (atorvastatin 20 mg Tab) 1 Tablets By Mouth every day. cholecalciferol (Vitamin D3) unknown dose By Mouth every day. docusate (Colace 100 mg Cap) 1 Capsules By Mouth 2 times a day. esomeprazole (Nexium 20 mg Cap-DR) 1 Capsules By Mouth every day. furosemide (furosemide 20 mg Tab) 1 Tablets By Mouth every day. metoprolol (metoprolol 100 mg ER Tab) 1 Tablets By Mouth every day. multivitamin with minerals (Multivitamins and Minerals) one tab By Mouth every day. potassium chloride (Klor Con 10 mEq Cap-ER) 1 Tablets By Mouth every day. tamsulosin 0.4 Milligram By Mouth every day. Pharmacy Information: Other: [facility] Comment: PATIENT EDUCATION INFORMATION Instructions: Kidney Stones Kidney stones are rock-like masses that form inside of the kidneys. Kidneys are organs that make pee (urine). A kidney stone may move into other parts of the u (more content not included)... Normal [facility] Interdisciplinary Note - Yariel e Manageron 06-29-2021 Interdisciplinary Note - Media Relations Associate RENAY spoke with patient in room. Patient is alert and oriented and participates in discharge planning. No family in room. Patient white board updated, and RENAY contact information provided. patient states Dr Cande saw her today and plan is to have surgery today as was planed yesterday when she was admitted. Patient verified PCP, insurance and DME. Patient lives alone and a friend or family will transport. she denies any needs at discharge. Will wait for urology for cysto with stent to be placed. [facility] Comment on above: Result Comment: Elec tronically Signed By: Teddy ESPANA, Tequila\.br\Date and Time Signed: 06/29/21 11:22 EDT Monitor Recordon 06-29-2021 Monitor Record [id number]#[id number]:127 [facility] Monitor Record [id number]#1.00CD:127 [facility] Monitor Record [id number]#1.00CD:127 [facility] Monitor Record [id number]#1.00CD:127 [facility] Monitor Record [id number]#1.00CD:127 [facility] Outside Recordson 06-29-2021 Outside Records [id number]#1.00CD:127 [facility] Patient Education - Texton 1 08-29-2020 Patient Education - Text Nephrology Kidney Stones Kidney stones are rock-like masses that form inside of the kidneys. Kidneys are organs that make pee (urine). A kidney stone may move into other parts of the urinary tract, including: ? The tubes that connect the kidneys to the bladder (ureters). ? The bladder. ? The tube that carries urine out of the body (urethra). Kidney stones can cause very bad pain and can block the flow of pee. The stone usually leaves your body (passes) through your pee. You may need to have a doctor take out the stone. What are the causes? Kidney stones may be caused by: ? A condition in which certain glands make too much parathyroid hormone (primary hyperparathyroidism). ? A buildup of a type of crystals in the bladder made of a chemical called uric acid. The body makes uric acid when you eat certain foods. ? Narrowing (stricture) of one or both of the ureters. ? A kidney blockage that you were born with. ? Past surgery on the kidney or the ureters, such as gastric bypass surgery. What increases the risk? You are more likely to develop this condition if: ? You have had a kidney stone in the past. ? You have a family history of kidney stones. ? You do not drink enough water. ? You eat a diet that is high in protein, salt (sodium), or sugar. ? You are overweight or very overweight (obese). What are the signs or symptoms? Symptoms of a kidney stone may include: ? Pain in the side of the belly, right below the ribs (flank pain). Pain usually spreads (radiates) to the groin. ? Needing to pee often or right away (urgently). ? Pain when going pee (urinating). ? Blood in your pee (hematuria). ? Feeling like you may vomit (nauseous). ? Vomiting. ? Fever and chills. How is this treated? Treatment depends on the size, location, and makeup of the kidney stones. The stones will often pass out of the body through peeing. You may need to: ? Drink more fluid to help pass the stone. In some cases, you may be given fluids through an IV tube put into one of your veins at the hospital. ? Take medicine for pain. ? Make changes in your diet to help keep kidney stones from coming back. Sometimes, medical procedures are needed to remove a kidney stone. This may involve: ? A procedure to break up kidney stones using a beam of light (laser) or shock waves. ? Surgery to remove the kidney stones. Follow these instructions at home: Medicines ? Take fesz-bni-qnutoqg and prescription medicines only as told by your doctor. ? Ask your doctor if the medicine prescribed to you requires you to avoid driving or using heavy machinery. Eating and drinking ? Drink enough fluid to keep your pee pale yellow. You may be told to drink at least 8?10 glasses of water each day. This will help you pass the stone. ? If told by your doctor, change your diet. This may include: ? Limiting how much salt you eat. ? Eating more fruits and vegetables. ? Limiting how much meat, poultry, fish, and eggs you eat. ? Follow instructions from your doctor about eating or drinking restrictions. General instructions ? Collect pee samples as told by your doctor. You may need to collect a pee sample: ? 24 hours after a stone comes out. ? 8?12 weeks after a stone comes out, and every 6?12 months after that. ? Strain your pee every time you pee (urinate), for as long as told. Use the strainer that your doctor recommends. ? Do not throw out the stone. Keep it so that it can be tested by your doctor. ? Keep all follow-up visits as told by your doctor. This is important. You may need follow-up tests. How is this prevented? To prevent another kidney stone: ? Drink enough fluid to keep your pee pale yellow. This is the best way to prevent kidney stones. ? Eat healthy foods. ? Avoid certain foods as told by your doctor. You may be told to eat less protein. ? Stay at a healthy weight. Where to find more information ? National Kidney Foundation (NKF): www.kidney.org ? [employer] (UCF): www.urologyhealth.org Contact a doctor if: ? You have pain that gets worse or does not get better with medicine. Get help right away if: ? You have a fever or chills. ? You get very bad pain. ? You get new pain in your belly (abdomen). ? You pass out (faint). ? You cannot pee. Summary ? Kidney stones are rock-like masses that form inside of the kidneys. ? Kidney stones can cause very bad pain and can block the flow of pee. ? The stones will often pass out of the body through peeing. ? Drink enough fluid to keep your pee pale yellow. This information is not intended to replace advice given to you by your health care provider. Make sure you discuss any questions you have with your health care provider. Document Released: 01/28/2009 Document Revised: 12/29/2019 Document Reviewed: 12/29/2019 Elsevier Patient Education ? 2019 [employer] [facility] Progress Note-Physicianon Progress Note-Physician Basic Information 65-year-old white female past medical history of obesity, COPD, hypertension, GERD and nephrolithiasis who was admitted as direct admission for possible A. fib. Patient was scheduled to have cystoscopy and possible stent for obstructing kidney stone. EKG read as having A. fib so she was directed to the hospital for admission. [1] Subjective Doing much better No more abdominal pain No nausea vomiting Review of Systems Constitutional: no fever, no chills, no sweats, no weakness Respiratory: no shortness of breath, no cough, no orthopnea, no wheezing Cardiovascular: no chest pain, no palpitations, no edema Additional ROS info: Except as noted in the above Review of Systems and in the History of Present Illness all other systems have been reviewed and are negative or noncontributory. Objective Vitals & Measurements T: 36.5 ?C (Oral) TMIN: 36.5 ?C (Oral) TMAX: 36.9 ?C (Oral) HR: 68(Apical) RR: 18 BP: 159/78 SpO2: 95% WT: 129.6 kg WT: 129.6 kg Intake & Output This visit (24 hour periods starting at 07:00 EDT) 06/29/21 * 06/28/21 06/27/21 Total Summary Intake mL -- 51 -- Output mL 600 200 -- Fluid Balance -600 -149 -- Intake (2) Sodium Chloride 0.9%, ceftriaxone mL -- 50 -- morphine mL -- 1 -- Total -- 51 -- Output (2) Urine Output Initial mL -- 200 -- Urine Voided mL 600 -- -- Total 600 200 -- Counts (0) * This column has not completed the indicated time period. Physical Exam General: alert, no acute distress Skin: warm, dry Head: no trauma, normocephalic Neck: Trachea midline, no adenopathy, no tenderness Eye: normal conjunctiva, sclera clear ENMT: TM's clear, oral mucosa moist, no pharyngeal erythema or exudate Cardiovascular: regular rate and rhythm, normal peripheral perfusion Respiratory: Lungs CTA, respirations non labored Chest wall: no deformity. Gastrointestinal: soft, non distended, no tenderness, no guarding. Back: No tenderness, Normal ROM, Normal alignment. Extremities: no deformity, no trauma Neurological: oriented x 4, LOC appropriate for age, CN II-XII intact, motor strength equal & normal bilaterally, sensation equal & normal bilaterally, speech normal Psychiatric: cooperative, affect appropriate for age, normal judgement, normal psychiatric thoughts. Lab Results WBC: 9.2 E9/L (06/28/21 16:48:00) RBC: 4.6 E12/L (06/28/21 16:48:00) HGB: 13.6 gm/dL (06/28/21 16:48:00) Hct: 41.3 % (06/28/21 16:48:00) MCV: 90 fL (06/28/21 16:48:00) MCH: 29.7 pg (06/28/21 16:48:00) MCHC: 32.9 gm/dL (06/28/21 16:48:00) RDW: 14.3 % High (06/28/21 16:48:00) Platelet: 300 E9/L (06/28/21 16:48:00) MPV: 7.7 fL (06/28/21 16:48:00) Neutro Auto: 72 % (06/28/21 16:48:00) Lymph Auto: 16.9 % (06/28/21 16:48:00) [place] Auto: 8.3 % (06/28/21 16:48:00) Eos Auto: 2.4 % (06/28/21 16:48:00) Basophil Auto: 0.4 % (06/28/21 16:48:00) Neutro Absolute: 6.6 E9/L (06/28/21 16:48:00) Lymph Absolute: 1.6 E9/L (06/28/21 16:48:00) [place] Absolute: 0.8 E9/L (06/28/21 16:48:00) Eos Absolute: 0.2 E9/L (06/28/21 16:48:00) Basophil Absolute: 0 E9/L (06/28/21 16:48:00) Glucose Lvl: 121 mg/dL (06/28/21 16:48:00) BUN: 25 mg/dL High (06/28/21 16:48:00) Creatinine: 1.5 mg/dL High (06/28/21 16:48:00) eGFR: 35 mL/min/1.73 m2 Low (06/28/21 16:48:00) eGFR AA: 42 mL/min/1.73 m2 Low (06/28/21 16:48:00) BUN/Creat Ratio: 17 (06/28/21 16:48:00) Sodium Lvl: 139 mmol/L (06/28/21 16:48:00) Potassium Lvl: 3.8 mmol/L (06/28/21 16:48:00) Chloride: 102 mmol/L (06/28/21 16:48:00) CO2: 27 mmol/L (06/28/21 16:48:00) AGAP: 14 mEq/L (06/28/21 16:48:00) Calcium Lvl: 8.7 mg/dL Low (06/28/21 16:48:00) Magnesium: 1.9 mg/dL (06/28/21 16:48:00) Troponin: 2.9 pg/mL Low (06/29/21 01:27:00) UA Spec Desc: Daniel (06/28/21 15:45:00) UA Color: Yellow2 (06/28/21 15:45:00) UA Clarity: Clear2 (06/28/21 15:45:00) UA Spec Grav: >=1.030 (06/28/21 15:45:00) UA pH: 5.5 (06/28/21 15:45:00) UA Protein: NEGATIVE1 (06/28/21 15:45:00) UA Glucose: NEGATIVE1 (06/28/21 15:45:00) UA Ketones: 1+ Abnormal (06/28/21 15:45:00) UA Bili: NEGATIVE1 (06/28/21 15:45:00) UA Blood: 2+ Abnormal (06/28/21 15:45:00) UA Nitrite: NEGATIVE1 (06/28/21 15:45:00) UA Urobilinogen: 0.2 (06/28/21 15:45:00) UA Leuk Est: NEGATIVE1 (06/28/21 15:45:00) UA RBC: 21-30 Abnormal (06/28/21 15:45:00) UA Squam Epithelial: 3-4 (06/28/21 15:45:00) UA WBC: 0-5 (06/28/21 15:45:00) UA Bacteria: Trace2 (06/28/21 15:45:00) UA CA Ox Crystal: Present (06/28/21 15:45:00) UA Amorph Ronel: Present (06/28/21 15:45:00) UA Mucous: 1+ (06/28/21 15:45:00) Images (06/28/2021 12:56 EDT XR Abdomen 1 View) IMPRESSION: No distinct collecting system calculi radiographically. EXAMINATION/TECHNIQUE: XR Abdomen 1 View HISTORY: Preoperative evaluation for left-sided kidney stone. COMPARISON: None RESULT: Limitations from patient body habitus and scoliosis. (more content not included)... Normal [facility] Comment on above: Result Comment: Elec tronically Signed By: CANDE HATHAWAY, Terrell\.br\Date and Time Signed: 06/29/21 11:13 EDT Troponin 6 Hr.on 06-29-2021 Troponin I.cardiac [Mass/Vol] 2.70 pg/mL Low 10.10-27.[address] [facility] Comment on above: Result Comment: The 95% CI (Confidence Interval) PPV (Positive Predictive Value) for myocardial infarction in females is 38 pg/mL, in males 51 pg/mL. The results should be used in conjunction with clinical conditions of myocardial infarction. (Access High Sensitivity Troponin I Instructions For Use, Compute[employer], March 2018) Performed By: #### 1 [id number] #### [facility] [address] [place] [address] Troponin 9 Hr.on 06-29-2021 Troponin I.cardiac [Mass/Vol] 2.90 pg/mL Low 10.10-27.[address] [facility] Comment on above: Result Comment: The 95% CI (Confidence Interval) PPV (Positive Predictive Value) for myocardial infarction in females is 38 pg/mL, in males 51 pg/mL. The results should be used in conjunction with clinical conditions of myocardial infarction. (Access High Sensitivity Troponin I Instructions For Use, [employer], March 2018) Performed By: #### 1 [id number] #### [facility] [address] [place] [address] US Renalon 06-29-2021 US Renal Exam Date/Time: 06/29/2021 15:04 EDT Reason for Exam: renal stones;Other (please specify) Report IMPRESSION: THERE ARE NO FOCAL LESIONS, THERE IS NO HYDRONEPHROSIS ON EITHER SIDE. CLINICAL HISTORY: renal stones. COMPARISON: NONE. COMMENT: The right kidney measures approximately 10.8 cm in length, with renal cortical thickness of approximately 1.4 cm. The left kidney measures approximately 10.8 cm in length, with renal cortical thickness of approximately 1.8 cm. Both kidneys have a normal sonographic appearance. No renal masses nor cysts are seen. There is no hydronephrosis. There are small bilateral hypoechoic areas which may represent nonobstructing intrarenal stones versus vascular calcifications. FINAL REPORT Dictated: 06/29/2021 3:30 pm Joseph Aquino MD, V. Signed (Electronic Signature): 06/29/2021 3:30 pm Signed by: Joseph Aquino MD, V. Transcribed by: BOOGIE Technologist: JOSE GUADALUPE Caceres [facility] XR Abdomen 1 Viewon 06-29-20 21 XR Abdomen 1 View Exam Date/Time: 06/29/2021 14:57 EDT Reason for Exam: Kidney stone Report IMPRESSION: THERE ARE NO ACUTE INTRA-ABDOMINAL CHANGES. CLINICAL HISTORY: Kidney stone COMPARISON: NONE. FINDINGS: The bowel gas pattern is unremarkable. There are no dilated loops of bowel. There is retained fecal material throughout the colon, constipation pattern There are no definite suspicious calcifications. Evaluation for renal stones is limited due to overlying bowel gas. There is severe thoracolumbar scoliosis. There has been prior Valadez ru fixation of the thoracic spine and there is fusion of the lower lumbar spine. FINAL REPORT Dictated: 06/29/2021 3:07 pm Joseph Aquino MD, V. Signed (Electronic Signature): 06/29/2021 3:07 pm Signed by: Joseph Aquino MD, V. Transcribed by: BOOGIE Technologist: CHECO Normal [facility] eGFRon 06-29-2021 GFR/1.73 sq M.predicted among blacks MDRD (S/P/Bld) [Vol rate/Area] mL/min/{1.73_m2} Normal >=59 [facility] Comment on above: Order Comment: Order added by Discern Expert. Result Comment: eGFR is race adjusted. AA=. Performed By: #### 2 [id number], [id number] #### [facility] [address] [place] [address] GFR/1.73 sq M.predicted among non-blacks MDRD (S/P/Bld) [Vol rate/Area] 55 mL/min/1.73 m2 Low >=59 [facility] Comment on above: Order Comment: Order added by Discern Expert. Result Comment: Market Editor renetta kidney disease could be indicated at eGFR's of less than 60 mL/min/1.73m2. Kidney failure is indicated at less than 15 mL/min/1.73m2. Performed By: #### 2 195064, [id number] #### [facility] [address] [place] [address] Ambulatory Clinical Summaryo n 06-28-2021 Ambulatory Clinical Summary {[id number]}CD: [id number] Normal [facility] Auto Diffon 06-28-2021 Basophils/100 WBC (Bld) 0.4 % Normal 0.0-2.0 [facility] Comment on above: Order Comment: Order Added by Discern Expert. Performed By: #### 2 537453, 7355342, 6028420, 17516072, 04591031, 8436581 ####[facility] [address] [place] [address] Basophils/Leukocytes Auto (Bld) [Pure # fraction] 0.0 E9/L Normal 0.0-0.2 [facility] Comment on above: Order Comment: Order Added by Discern Expert. Performed By: #### 2 743479, 8107000, 5214988, 27909826, 43915155, 2276427 ####[facility] [address] [place] [address] Eosinophils/100 WBC (Bld) 2.4 % Normal 0.0-8.0 [facility] Comment on above: Order Comment: Order Added by Discern Expert. Performed By: #### 2 329893, 3602109, 5615512, 77233398, 34972667, 1404189 ####[address] [address] Eosinophils/Leukocyt es Auto (Bld) [Pure # fraction] 0.2 E9/L Normal 0.0-0.5 [facility] Comment on above: Order Comment: Order Added by Discern Expert. Performed By: #### 2 014132, 4405655, 1335047, 53950428, 61624255, 2607383 ####[address] [address] Lymphocytes/100 WBC (Bld) 16.9 % Normal 14.0-50.0 [facility] Comment on above: Order Comment: Order Added by Discern Expert. Performed By: #### 2 086768, 0589424, 9642289, 68529443, 23255963, 7295056 ####[address] [address] Lymphocytes/Leukocyt es Auto (Bld) [Pure # fraction] 1.6 E9/L Normal 1.0-4.0 [facility] Comment on above: Order Comment: Order Added by Discern Expert. Performed By: #### 2 949178, 2625861, 1864013, 64628038, 11510581, 6772351 ####[address] [address] Monocytes/100 WBC (Bld) 8.3 % Normal 4.0-14.0 [facility] Comment on above: Order Comment: Order Added by Discern Expert. Performed By: #### 2 431806, 0797244, 2465984, 74502941, 55070934, 3554088 ####[address] [address] Monocytes/Leukocytes Auto (Bld) [Pure # fraction] 0.8 E9/L Normal 0.2-1.0 [facility] Comment on above: Order Comment: Order Added by Discern Expert. Performed By: #### 2 264379, 8430588, 5507089, 42479709, 28817942, 4950218 ####[facility] [address] [place] [address] Neutrophils/100 WBC (Bld) 72.0 % Normal 36.0-75.0 [facility] Comment on above: Order Comment: Order Added by Discern Expert. Performed By: #### 2 438268, 8801437, 2176435, 41221299, 57793243, 8643747 ####[facility] [address] [place] [address] Neutrophils/Leukocyt es Auto (Bld) [Pure # fraction] 6.6 E9/L Normal 2.0-7.5 [facility] Comment on above: Order Comment: Order Added by Discern Expert. Performed By: #### 2 690326, 5293800, 3358071, 75575037, 11241430, 2805166 ####[facility] [address] [place] [address] BMPon 06-28-2021 Creatinine [Mass/Vol] 1.5 mg/dL High 0.5-1.3 [facility] Comment on above: Performed By: #### 2 649198, 2668021, 9286041, 20340129, 44240768, 4223287 ####[facility] [address] [place] [address] Urea nitrogen [Mass/Vol] 25 mg/dL High 5-21 [facility] Comment on above: Performed By: #### 2 712016, 1508150, 1339705, 08833489, 18814021, 9945365 ####[facility] [address] [place] [address] Urea nitrogen/Creatinine [Mass ratio] 17 No Units Normal 10-20 [facility] Comment on above: Performed By: #### 2 410471, 1574342, 1294718, 25650914, 72803899, 0545589 ####[facility] [address] [place] [address] Anion gap [Moles/Vol] 14 mmol/L Normal 6-16 [facility] Comment on above: Performed By: #### 2 609978, 2420304, 6467808, 22326246, 97950523, 3942667 ####[facility] [address] [place] [address] Calcium [Mass/Vol] 8.7 mg/dL Low 8.9-11.1 [facility] Comment on above: Performed By: #### 2 687313, 6074151, 7147254, 04022149, 35408050, 1057263 ####[facility] [address] [facility] [place] [place] [address] Chloride [Moles/Vol] 102 mmol/L Normal 101-111 [facility] Comment on above: Performed By: #### 2 003279, 5508391, 4859195, 43464725, 59840123, 1516578 ####[facility] [address] [place] [place] [address] CO2 [Moles/Vol] 27 mmol/L Normal 21-31 [facility] Comment on above: Performed By: #### 2 970984, 2185938, 0872417, 57793679, 65943848, 9163045 ####[facility] [address] [facility] [place] [place] [address] Glucose [Mass/Vol] 121 mg/dL Normal 55-199 [facility] Comment on above: Result Comment: If t his glucose result represents a fasting glucose, interpretation should refer to the following reference range: 55-99 mg/dL Performed By: #### 2 400129, 8019522, 3403015, 20602645, 15604169, 5986351 ####[facility] [address] [place] [place] [address] Potassium [Moles/Vol] 3.8 mmol/L Normal 3.5-5.3 [facility] Comment on above: Performed By: #### 2 718583, 9268300, 7750802, 24083826, 86996726, 4297660 ####[facility] [address] [place] [address] Sodium [Moles/Vol] 139 mmol/L Normal 135-145 [facility] Comment on above: Performed By: #### 2 326992, 6462723, 2452099, 85894419, 43408906, 7503249 ####[facility] [address] [place] [address] BUNon 06-28-2021 Urea nitrogen [Mass/Vol] 25 mg/dL High 5-21 [facility] Comment on above: Performed By: #### 2 907270, 9176884, 9984571, 11957342, 6183269, 4985621 ####[facility] [address] [place] [address] CBC w/ Auto Diffon Erythrocyte distribution width (RBC) [Ratio] 14.3 % High 10.9-14.2 [facility] Comment on above: Performed By: #### 2 698975, 3970606, 8067175, 94726679, 05170334, 4902230 ####[facility] [address] [place] [address] Hematocrit (Bld) [Volume fraction] 41.3 % Normal 34.0-46.0 [facility] Comment on above: Performed By: #### 2 692824, 3459644, 4616733, 52140360, 55605480, 4994654 ####[facility] [address] [place] [address] Hemoglobin (Bld) [Mass/Vol] 13.6 g/dL Normal 12.0-16.0 [facility] Comment on above: Performed By: #### 2 385283, 6233600, 8548859, 17042501, 60689327, 2685150 ####[facility] [address] [place] [address] MCH (RBC) [Entitic mass] 29.7 pg Normal 27.0-34.0 [facility] Comment on above: Performed By: #### 2 433225, 8978109, 5525593, 01975329, 74126358, 1246003 ####[facility] [address] [place] [address] MCHC (RBC) [Mass/Vol] 32.9 g/dL Normal 31.4-36.0 [facility] Comment on above: Performed By: #### 2 802500, 8544677, 9477961, 08031440, 96296064, 1439901 ####[address] [address] MCV (RBC) [Entitic vol] 90.0 fL Normal 80.0-100.0 [facility] Comment on above: Performed By: #### 2 129703, 1242154, 8402104, 64426133, 24162400, 4908199 ####[address] [address] Platelet mean volume (Bld) [Entitic vol] 7.7 fL Normal 6.4-10.8 [facility] Comment on above: Performed By: #### 2 220184, 3681212, 5937216, 16464652, 56910951, 6859587 ####[address] [address] Platelets (Bld) [#/Vol] 300.0 E9/L Normal 150.0-500. 0 [facility] Comment on above: Performed By: #### 2 514314, 0094616, 3286036, 38803695, 30295757, 1829166 ####[address] [address] RBC (Bld) [#/Vol] 4.6 E12/L Normal 4.3-5.9 [facility] Comment on above: Performed By: #### 2 533566, 1051552, 5143140, 12996667, 01574395, 0487203 ####[address] [address] WBC corrected for nucl RBC Auto (Bld) [#/Vol] 9.2 E9/L Normal 4.0-11.0 [facility] Comment on above: Performed By: #### 2 386447, 2128272, 6739150, 33180279, 58007694, 5093624 ####[facility] [address] [place] [address] CBC w/Indiceson 06-28-2021 Erythrocyte distribution width (RBC) [Ratio] 14.2 % Normal 10.9-14.2 [facility] Comment on above: Performed By: #### 2 077480, 6518768, 8125032, 78346410, 7131260, 5512753 ####[address] [place] [address] Hematocrit (Bld) [Volume fraction] 44.1 % Normal 34.0-46.0 [facility] Comment on above: Performed By: #### 2 482278, 9952106, 9525385, 35795628, 1236290, 8320123 ####[address] [address] Hemoglobin (Bld) [Mass/Vol] 14.5 g/dL Normal 12.0-16.0 [facility] Comment on above: Performed By: #### 2 581991, 8732013, 5765779, 80054112, 2291806, 8860757 ####[address] [place] [address] MCH (RBC) [Entitic mass] 29.7 pg Normal 27.0-34.0 [facility] Comment on above: Performed By: #### 2 004864, 8216438, 2853211, 20696523, 8070635, 8879858 ####[address] [place] [address] MCHC (RBC) [Mass/Vol] 32.9 g/dL Normal 31.4-36.0 [facility] Comment on above: Performed By: #### 2 038750, 9304658, 3078952, 26648758, 4326212, 8259611 ####[facility] [address] [place] [address] MCV (RBC) [Entitic vol] 90.5 fL Normal 80.0-100.0 [facility] Comment on above: Performed By: #### 2 947839, 1811091, 6997793, 04945733, 3282461, 8423463 ####[address] [place] [address] Platelet mean volume (Bld) [Entitic vol] 7.9 fL Normal 6.4-10.8 [facility] Comment on above: Performed By: #### 2 [id number], 8146985, 2144557, [id number], 3072251, 8348864 ####[address] [address] Platelets (Bld) [#/Vol] 289.0 E9/L Normal 150.0-500. 0 [facility] Comment on above: Performed By: #### 2 925047, 8562178, 7344700, [id number], 3532846, 6336779 ####[address] [address] RBC (Bld) [#/Vol] 4.9 E12/L Normal 4.3-5.9 [facility] Comment on above: Performed By: #### 2 764121, 9636403, 3519093, 43784618, 8995202, 3898662 ####[address] [address] WBC corrected for nucl RBC Auto (Bld) [#/Vol] 9.5 E9/L Normal 4.0-11.0 [facility] Comment on above: Performed By: #### 2 193000, 0106861, 6635320, 57046269, 6956269, 4115495 ####[address] [place] [address] Consent for Procedure/Surger yon 06-28-2021 Consent for Procedure/Surgery [id number]:[address] [facility] Consultation Noteon 06-28-20 Consultation Note Patient: MINAL TAMAYO Age: 65 years Sex: Female : 1955 Associated Diagnoses: None Author: Ignacio HATHAWAY, Judy Black Basic Information Time Seen: Date & Time 06/28/2021 14:31:00. Source of history: Medical personnel, Medical record, Patient. History limitation: None. History of Present Illness 65 yo F with hx of nephrolithiasis who presented to the [facility] ER yesterday with LLQ pain and findings of a 6 mm L UVJ stone with mild hydronephrosis on CT scan 06/27/21. Labs wnl (Cr 1.0), afebrile, UA neg for UTI. She was scheduled for outpatient follow up next week but due to intractable pain despite toradol and percocet, she was seen in the [facility] office today for further evaluation. After discussion of treatment options, she elected to proceed with left ureteroscopy, laser lithotripsy, possible stent placement. However, pre-op EKG x 2 noted new onset Afib, HR 85. CXR wnl. She denies palpitations or chest pain but does note shortness of breath. Patient denies known cardiac hx and has never seen a hearing aid technician. Father hx CHF. Currently denies fever, chills, dysuria or flank pain. Last ate this AM. History of L URS, laser lithotripsy, stent by Dr Gallagher 11/2019. . Review of Systems Constitutional: No fever, No chills. Eye: No recent visual problem, No discharge. Ear/Nose/Mouth/Throat: No nasal congestion, No sore throat. Respiratory: Shortness of breath, No cough. Cardiovascular: No chest pain, No palpitations. Gastrointestinal: Nausea, No vomiting, No diarrhea, No constipation. Genitourinary: Negative except as documented in history of present illness, No dysuria, No hematuria, No urethral discharge. Hematology/Lymphatics: No bruising tendency, No bleeding tendency. Endocrine: No excessive thirst, No polyuria. Immunologic: Not immunocompromised, No recurrent fevers, No recurrent infections. Musculoskeletal: No back pain, No decreased range of motion. Integumentary: No rash, No abrasions. Neurologic: Alert and oriented X4, No confusion. Psychiatric: Anxiety, No depression. ROS reviewed as documented in chart Health Status Allergies: Allergic Reactions (Selected) Severity Not Documented Adhesive Bandage- Rash. FentaNYL- Unknown. Sulfa drugs- Rash., Allergies (3) Active Reaction Adhesive Bandage Rash fentaNYL Unknown sulfa drugs Rash Current medications: (Selected) Inpatient Medications Ordered Dilaudid 1 mg/mL injectable solution: 0.5 mg = 0.5 mL, Injection, IV Push, q20min PRN Pain 4-7, Routine, Start date 06/28/21 13:55:00 EDT, up to 2mg Lactated Ringers IV Marielena 1000 mL 1,000 mL: 1,000 mL, IV, 150 mL/hr, Routine, Start date 06/28/21 12:23:00 EDT, 6.7 hour(s), Total volume (mL): 1,000, 121 kg, 2.3, m2 cefazolin additive + Premix Sodium Chloride 0.9% 100 mL: 3 gram = 100 mL, Soln-IV, IV Piggyback, PREOP, Routine, Start date 06/28/21 13:41:00 EDT, 200 mL/hr, Infuse over 30 minute(s) ketorolac 15 mg/mL Inj: 15 mg = 1 mL, Injection, IV Push, q6hr PRN Pain for 5 day(s), Stop date 07/03/21 14:08:00 EST, Routine, Start date 06/28/21 14:09:00 EDT, 06/28/21 14:09:00 EDT Documented Medications Documented Klor Con 10 mEq Cap-ER: 10 mEq = 1 tab(s), Oral, Daily, Refills(s) 0, Prophylaxis Multivitamins and Minerals: one tab, Oral, Daily, Refill(s) 0 Nexium 20 mg Cap-DR: 20 mg = 1 cap(s), Oral, Daily, Refills(s) 0, Control of stomach acid Vitamin D3: unknown dose, Oral, Daily, Refills(s) 0, Prophylaxis atorvastatin 20 mg Tab: 20 mg = 1 tab(s), Oral, Daily, Refills(s) 0, High cholesterol furosemide 20 mg Tab: 20 mg = 1 tab(s), Oral, Daily, Refills(s) 0, diuretic/water pill ketorolac: unknown dose, Oral, q6hr, PRN as needed for pain metoprolol 100 mg ER Tab: 100 mg = 1 tab(s), Oral, Daily, Refills(s) 0, High blood pressure oxycodone: unknown dose, Oral, q12hr, PRN as needed for pain, Refills(s) 0 tamsulosin: unknown dose, Oral, Daily, Urinary discomfort, Medications (4) Active Scheduled: (1) ceFAZolin + Premix Sodium Chloride 0.9% Diluent 100 mL 3 gram 100 mL, IV Piggyback, PREOP Continuous: (1) Lactated Ringers 1,000 mL 1,000 mL, IV, 150 mL/hr PRN: (2) HYDROmorphone 1 mg/mL SOLN [F] 0.5 mg 0.5 mL, IV Push, q20min ketorolac 15 mg/mL Inj [F] 15 mg 1 mL, IV Push, q6hr Problem list: All Problems Abdominal pain / SNOMED CT 21851039 / Confirmed Arthritis / SNOMED CT 6761219 / Confirmed COPD mixed type / SNOMED CT 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 Normal [facility] Comment on above: Result Comment: Elec tronically Signed By: Ignacio HATHAWAY, Judy Acevedo.br\Date and Time Signed: 06/28/21 14:54 EDT Creatinineon 06-28-2021 Creatinine [Mass/Vol] 1.5 mg/dL High 0.5-1.3 [facility] Comment on above: Performed By: #### 2 875620, 5718547, 3496442, 49072586, 7456218, 6644229 ####[facility] [address] [place] [address] Glu Fastingon 06-28-2021 Glucose [Mass/Vol] 102 mg/dL High 55-99 [facility] Comment on above: Performed By: #### 2 712626, 4997551, 4931188, 20072270, 9610729, 9449558 ####[facility] [address] [place] [address] Immunization Recordson 06-28 Immunization Records [id number]:[address] [facility] Lyteson 06-28-2021 Anion gap [Moles/Vol] 15 mmol/L Normal 6-16 [facility] Comment on above: Performed By: #### 2 973279, 6790800, 5790880, 08003590, 1840467, 4224627 ####[facility] [address] [place] [address] Chloride [Moles/Vol] 101 mmol/L Normal 101-111 [facility] Comment on above: Performed By: #### 2 044066, 2620642, 0281431, 46018700, 6839390, 0658392 ####[facility] [address] [place] [address] CO2 [Moles/Vol] 27 mmol/L Normal 21-31 [facility] Comment on above: Performed By: #### 2 205584, 7724394, 3742589, 90364560, 4423381, 8067255 ####[facility] [address] [place] [address] Potassium [Moles/Vol] 3.7 mmol/L Normal 3.5-5.3 [facility] Comment on above: Performed By: #### 2 492173, 9248778, 0331602, 11807383, 8016378, 8536477 ####[facility] [address] [place] [address] Sodium [Moles/Vol] 139 mmol/L Normal 135-145 [facility] Comment on above: Performed By: #### 2 689718, 2426530, 0804610, 12317903, 1473673, 7085234 ####[facility] [address] [place] [address] Magnesiumon 06-28-2021 Magnesium [Mass/Vol] 1.9 mg/dL Normal 1.3-2.4 [facility] Comment on above: Performed By: #### 2 891716, 5606284, 2111853, 32024806, 49893931, 9112743 ####[facility] [address] [place] [address] Outside Radiologyon 06-28-20 Outside Radiology [id number]:[address] [facility] Patient Educationon 06-28-20 21 Patient Education Urology Hydronephrosis Hydronephrosis is the swelling of one or both kidneys due to a blockage that stops urine from flowing out of the body. Kidneys filter waste from the blood and produce urine. This condition can lead to kidney failure and may become life threatening if not treated promptly. What are the causes? Common causes of this condition include: ? Problems that occur when a baby is developing in the womb (congenital defect). These can include problems: ? In the kidneys. ? In the tubes that drain urine from the kidneys into the bladder (ureters). ? Kidney stones. ? Bladder infection. ? An enlarged prostate gland. ? Scar tissue from a previous surgery or injury. ? A blood clot. ? A tumor or cyst in the abdomen or pelvis. ? Cancer of the prostate, bladder, uterus, ovary, or colon. What are the signs or symptoms? Symptoms of this condition include: ? Pain or discomfort in your side (flank). ? Pain and swelling in your abdomen. ? Nausea and vomiting. ? Fever. ? Pain when passing urine. ? Feelings of urgency when you need to urinate. ? Urinating more often than normal. In some cases, you may not have any symptoms. How is this diagnosed? This condition may be diagnosed based on: ? Your symptoms and medical history. ? A physical exam. ? Blood and urine tests. ? Imaging tests, such as an ultrasound, CT scan, or MRI. ? A procedure in which a scope is inserted into the urethra and used to view parts of the urinary tract and bladder (cystoscopy). How is this treated? Treatment for this condition depends on where the blockage is, how long it has been there, and what caused it. The goal of treatment is to remove the blockage. Treatment may include: ? Antibiotic medicines to treat or prevent infection. ? A procedure to place a small, thin tube (stent) into a blocked ureter. The stent will keep the ureter open so that urine can drain through it. ? A nonsurgical procedure that crushes kidney stones with shock waves (extracorporeal shock wave lithotripsy). ? If kidney failure occurs, treatment may include dialysis or a kidney transplant. Follow these instructions at home: ? Take hhjx-qku-saxbiem and prescription medicines only as told by your health care provider. ? Rest and return to your normal activities as told by your health care provider. Ask your health care provider what activities are safe for you. ? Drink enough fluid to keep your urine pale yellow. ? If you were prescribed an antibiotic medicine, take it exactly as told by your health care provider. Do not stop taking the antibiotic even if you start to feel better. ? Keep all follow-up visits as told by your health care provider. This is important. Contact a health care provider if: ? You continue to have symptoms after treatment. ? You develop new symptoms. ? Your urine becomes cloudy or bloody. ? You have a fever. Get help right away if: ? You have severe flank or abdominal pain. ? You cannot drink fluids without vomiting. Summary ? Hydronephrosis is the swelling of one or both kidneys due to a blockage that stops urine from flowing out of the body. ? Hydronephrosis can lead to kidney failure and may become life threatening if not treated promptly. ? The goal of treatment is to treat the cause of the blockage. It may include insertion of stent into a blocked ureter, a procedure to treat kidney stones, and antibiotic medicines. ? Follow your health care provider's instructions for taking care of yourself at home, including instructions about drinking fluids, taking medicines, and limiting activities. This information is not intended to replace advice given to you by your health care provider. Make sure you discuss any questions you have with your health care provider. Document Released: 06/08/2008 Document Revised: 08/23/2018 Document Reviewed: 08/23/2018 [employer] Patient Education ? 2019 [employer] Normal [facility] Troponin 0 Hr.on 06-28-2021 Troponin I.cardiac [Mass/Vol] 2.70 pg/mL Low 10.10-27.[address] [facility] Comment on above: Result Comment: The 95% CI (Confidence Interval) PPV (Positive Predictive Value) for myocardial infarction in females is 38 pg/mL, in males 51 pg/mL. The results should be used in conjunction with clinical conditions of myocardial infarction. (Access High Sensitivity Troponin I Instructions For Use, [employer], March 2018) Performed By: #### 2 961048, 4015191, 4580784, 13794837, 22355531, 3399334 ####[facility] [address] [place] [address] Troponin 3 Hr.on 06-28-2021 Troponin I.cardiac [Mass/Vol] 3.00 pg/mL Low 10.10-27.[address] [facility] Comment on above: Result Comment: The 95% CI (Confidence Interval) PPV (Positive Predictive Value) for myocardial infarction in females is 38 pg/mL, in males 51 pg/mL. The results should be used in conjunction with clinical conditions of myocardial infarction. (Access High Sensitivity Troponin I Instructions For Use, [employer], March 2018) Performed By: #### 1 [id number] ####[facility] [address] [place] [address] UA With Cult Reflexon 2020 Bacteria LM Ql (Urine sed) TRACE Normal Trace [facility] Comment on above: Order Comment: Urina ry Catheter Insertion triggered Urinalysis With Culture Reflex order by discern. Performed By: #### 1 [id number] #### [facility] [address] [place] [address] Bilirubin Ql (U) Negative Normal Negative [facility] Comment on above: Order Comment: Urina ry Catheter Insertion triggered Urinalysis With Culture Reflex order by discern. Performed By: #### 1 0719162 #### [facility] [address] [place] [address] Calcium oxalate crystals LM Ql (Urine sed) Present Normal [facility] Comment on above: Order Comment: Urina ry Catheter Insertion triggered Urinalysis With Culture Reflex order by discern. Performed By: #### 1 7343689 #### [facility] [address] [place] [address] Clarity (U) CLEAR Normal Clear [facility] Comment on above: Order Comment: Urina ry Catheter Insertion triggered Urinalysis With Culture Reflex order by discern. Performed By: #### 1 7432519 #### [facility] [address] [place] [address] Color (U) YELLOW Normal Yellow [facility] Comment on above: Order Comment: Urina ry Catheter Insertion triggered Urinalysis With Culture Reflex order by discern. Performed By: #### 1 1163937 #### [facility] [address] [place] [address] Crystals LM Ql (Urine sed) Present Normal [facility] Comment on above: Order Comment: Urina ry Catheter Insertion triggered Urinalysis With Culture Reflex order by discern. Performed By: #### 1 7186777 #### [facility] [address] [place] [address] Epithelial cells.squamous LM.HPF (Urine sed) [#/Area] 3-4 Normal 0-2 [facility] Comment on above: Order Comment: Urina ry Catheter Insertion triggered Urinalysis With Culture Reflex order by discern. Performed By: #### 1 1762358 #### [facility] [address] [place] [address] Glucose Test strip (U) [Mass/Vol] Negative Normal Negative [facility] Comment on above: Order Comment: Urina ry Catheter Insertion triggered Urinalysis With Culture Reflex order by discern. Performed By: #### 1 [id number] #### [facility] [address] [place] [address] Hemoglobin Ql (U) 2+ Abnormal Negative [facility] Comment on above: Order Comment: Urina ry Catheter Insertion triggered Urinalysis With Culture Reflex order by discern. Performed By: #### 1 0595082 #### [facility] [address] [place] [address] Ketones (U) [Mass/Vol] 1+ Abnormal Negative [facility] Comment on above: Order Comment: Urina ry Catheter Insertion triggered Urinalysis With Culture Reflex order by discern. Performed By: #### 1 9786045 #### [facility] [address] [place] [address] [place].plasma/Lithi um.RBC (Bld) [Mass ratio] 21-30 Abnormal 0-3 [facility] Comment on above: Order Comment: Urina ry Catheter Insertion triggered Urinalysis With Culture Reflex order by discern. Performed By: #### 1 7000103 #### [facility] [address] [place] [address] Mucus Ql (Urine sed) 1+ Normal [facility] Comment on above: Order Comment: Urina ry Catheter Insertion triggered Urinalysis With Culture Reflex order by discern. Performed By: #### 1 [id number] #### [facility] [address] [place] [address] Nitrite Ql (U) Negative Normal Negative [facility] Comment on above: Order Comment: Urina ry Catheter Insertion triggered Urinalysis With Culture Reflex order by discern. Performed By: #### 1 [id number] #### [facility] [address] [place] [address] pH (U) 5.5 [pH] Invalid Interpretation Code 5.0-9.0 [facility] Comment on above: Order Comment: Urina ry Catheter Insertion triggered Urinalysis With Culture Reflex order by discern. Performed By: #### 1 [id number] #### [facility] [address] [place] [address] Protein (U) [Mass/Vol] Negative Normal Negative [facility] Comment on above: Order Comment: Urina ry Catheter Insertion triggered Urinalysis With Culture Reflex order by discern. Performed By: #### 1 [id number] #### [facility] [address] [place] [address] Specific gravity (U) [Rel density] >=1.030 Invalid Interpretation Code 1.005-1.[address] [facility] Comment on above: Order Comment: Urina ry Catheter Insertion triggered Urinalysis With Culture Reflex order by discern. Performed By: #### 1 [id number] #### [facility] [address] [place] [address] Type of Urine collection method Daniel Normal [facility] Comment on above: Order Comment: Urina ry Catheter Insertion triggered Urinalysis With Culture Reflex order by discern. Performed By: #### 1 [id number] #### [facility] [address] [place] [address] Urobilinogen Qn (U) 0.2 {Gerber'U}/dL Normal 0.0-1.0 [facility] Comment on above: Order Comment: Urina ry Catheter Insertion triggered Urinalysis With Culture Reflex order by discern. Performed By: #### 1 [id number] #### [facility] [address] [place] [address] WBC Auto Ql (U) Negative Normal Negative [facility] Comment on above: Order Comment: Urina ry Catheter Insertion triggered Urinalysis With Culture Reflex order by discern. Performed By: #### 1 [id number] #### [facility] [id number] WBC LM.HPF (Urine sed) [#/Area] 0-5 Normal 0-5 [facility] Comment on above: Order Comment: Urina ry Catheter Insertion triggered Urinalysis With Culture Reflex order by discern. Performed By: #### 1 [id number] #### [facility] [address] [place] [address] Urology Office/Clinic Noteon 06-28-2021 Urology Office/Clinic Note Chief Complaint Pt is here for kidney stone HPI Staff Minal is a 65 y.o. female here for hydronephrosis. Previous Dx: abdominal pain, feeling of incomplete bladder emptying, hydronephrosis w/ obstructing calculus, kidney stone. S/P cystoscopic removal of ureteric stent done on 12/15/19. CT done on 06/27/21 showed 6mm stone left ureteral vesicle junction w/ mild associated obstructive uropathy. Dysuria: denies Incomplete bladder emptying: denies Hematuria: denies Frequency: yes Urgency: yes Nocturia: 2x a night Stream: steady stream Leaking: denies Post void dripping: denies Wearing pads/ Depends: denies Urge incontinence: denies Stress incontinence: denies Incontinence without Sensory Awareness: denies Abdominal pain: denies Flank pain: left flank pain Sexual complaints: _ History of Present Illness staff HPI reviewed and agree. Review of Systems PHQ Score Initial Depression Screen Score: 0 no fever, chills, malaise, myalgia. no chest pain, palpitations, or SOB. Physical Exam Vitals & Measurements HR: 77(Peripheral) BP: 140/86 HT: 157.0 cm HT: 157 cm WT: 121.0 kg WT: 121 kg BMI: 49.09 General: nontoxic, appears in pain/uncomfortable Mouth: moist mucosa Lungs: normal respiratory effort Cardio: regular rate, good distal perfusion Abdomen: nondistended, no suprapubic distention or tenderness, + left CVA tenderness Neurologic: Grossly normal Skin: No rashes or suspicious lesions Assessment/Plan 1. Hydronephrosis with obstructing calculus (N13.2: Hydronephrosis with renal and ureteral calculous obstruction) 6mm L UVJ stone with hydro on CT yesterday [facility] ER. pt continues to have severe pain despite toradol and percocet. pt's last po intake was a cracker at 5 am and a few sips of water around 8 am. no fever today. UA in clinic shows blood only. case discussed with Dr Pierre (director of physical education MD). Will schedule cysto with possible stent placement, possible basket extraction, possible laser litho. The procedural risks, benefits, details, and treatment alternatives have been discussed with the patient. These include bleeding, infection, inability to break or retrieve all of the stone, injury to the ureter (the tube which connects the kidney to the bladder), injury to the kidney scarring of the ureter, and need for repeat procedures, among others. Full informed consent has been obtained. Will order General anesthesia. pt to proceed directly to [facility] for surgery. Ordered: Office Visit Level 5 Est 90619 Urnls Dip Stick Auto w/o Microscopy POC 47986 Follow-up With When Contact Information TREASURE HATHAWAY, EFREN [address] [address]- Additional Instructions: Patient Education Hydronephrosis Problem List/Past Medical History Ongoing Abdominal pain Arthritis COPD mixed type Feeling of incomplete bladder emptying Hydronephrosis with obstructing calculus Hypertension Kidney stone Historical No qualifying data Procedure/Surgical History Cystoscopic insertion of ureteric stent (12/04/2019), Arthroplasty of knee, Colonoscopy, Cystoscopy. Medications acetaminophen-hydrocodone 325 mg-5 mg oral tablet, Oral, q6hr atorvastatin 20 mg Tab, Oral, Daily furosemide 20 mg Tab, 20 mg= 1 tab(s), Oral, Daily Klor Con 10 mEq Cap-ER, Oral, BID Levsin 0.125 mg SL Tab, 0.125 mg= 1 tab(s), Oral, TID, 1 refills metoprolol 100 mg ER Tab, Oral, Daily Multivitamins and Minerals Nexium 20 mg Cap-DR, Oral, Daily [place] 325 mg-5 mg oral tablet, 1 tab(s), Oral, q6hr, PRN Vitamin D3 Allergies Adhesive Bandage (Unknown) fentaNYL (Unknown) sulfa drugs (Unknown) Social History Alcohol - Denies Alcohol Use, 12/04/2019 Tobacco - Denies Tobacco Use, 12/04/2019 Never (less than 100 in lifetime) Tobacco Use:. Never Smokeless Tobacco Use:., 06/28/2021 Never (less than 100 in lifetime) Tobacco Use:. Cigarettes, 12/04/2019 Family History Arthritis: Mother and Father. Cancer: Brother. Heart disease: Father. High cholesterol: Mother and Father. Hypertension: Mother and Father. Immunizations Vaccine Date Status Comments SARS-CoV-2 (COVID-19) Ad26 vaccine 11/23/2020 Recorded influenza virus vaccine, live, trivalent - Not Given Patient Refuses Lab Results Ambulatory Point of Care Results Bilirubin Urine Dipstick: 1+ Small (06/28/21 11:25:00) Blood Urine Dipstick: 2+ Moderate (06/28/21 11:25:00) Glucose Urine Dipstick: Negative (06/28/21 11:25:00) Ketones Urine Dipstick: Negative (06/28/21 11:25:00) Leukocytes Urine Dipstick: Negative (06/28/21 11:25:00) Nitrite Urine Dipstick: Negative (06/28/21 11:25:00) Protein Urine Dipstick: Trace (06/28/21 11:25:00) Specific [place] Urine Dipstick: >=1.030 (06/28/21 11:25:00) Urine Appearance Urine Dipstick: Clear (06/28/21 11:25:00) Urine Color Urine Dipstick: Yellow (06/28/21 11:25:00) Urobilinogen Urine Dipstick: Normal 0.2-1 EU/dl (06/28/21 11:25:00) pH Urine Dipstick: 5.5 (06/28/21 11:25:00) Normal [facility] Comment on above: Result Comment: Elec tronically Signed By: PERLA TOBIAS PA-C\Date and Time Signed: 06/28/21 11:50 EDT XR Abdomen 1 Viewon 06-28-20 XR Abdomen 1 View Exam Date/Time: 06/28/2021 12:56 EDT Reason for Exam: Kidney stone Report IMPRESSION: No distinct collecting system calculi radiographically. EXAMINATION/TECHNIQUE: XR Abdomen 1 View HISTORY: Preoperative evaluation for left-sided kidney stone. COMPARISON: None RESULT: Limitations from patient body habitus and scoliosis. No distinct collecting system calculi radiographically. Nonspecific nondilated bowel gas pattern. Elevation of the left hemidiaphragm. Right lung bases unremarkable. Severe levoscoliosis within the spine with postsurgical changes. Degenerative changes. No other significant abnormality. FINAL REPORT Dictated: 06/28/2021 2:42 pm Farooq Mendiola MD Signed (Electronic Signature): 06/28/2021 2:42 pm Signed by: Farooq Mendiola MD Transcribed by: BOOGIE Technologist: SHANI Normal [facility] XR Chest 2 Viewson XR Chest 2 Views Exam Date/Time: 06/28/2021 12:56 EDT Reason for Exam: P.A.T. Report IMPRESSION: NO EVIDENCE OF ACUTE CHEST DISEASE. CLINICAL HISTORY: P.A.T.. COMPARISON: 04/23/2005. COMMENT: The heart is normal in size. There is a hiatal hernia projecting into the left base medially. The mediastinum is otherwise unremarkable. There are mildly accentuated lung markings bilaterally. No superimposed infiltration nor pleural effusion is evident. There is thoracic dextroscoliosis. There is metallic surgical hardware associated with the thoracic spine. No significant change is noted when compared to the prior exam. FINAL REPORT Dictated: 06/28/2021 1:24 pm Remberto Garber M.D. Signed (Electronic Signature): 06/28/2021 1:24 pm Signed by: Remberto Garber M.D. Transcribed by: BOOGIE Technologist: SHANI Normal [facility] eGFRon 06-28-2021 GFR/1.73 sq M.predicted among blacks MDRD (S/P/Bld) [Vol rate/Area] 42 mL/min/1.73 m2 Low >=59 [facility] Comment on above: Order Comment: Order added by Discern Expert. Result Comment: eGFR is race adjusted. AA=. Performed By: #### 2 [id number], [id number], [id number], [id number], [id number], [id number] ####[facility] [address] [place] [address] GFR/1.73 sq M.predicted among non-blacks MDRD (S/P/Bld) [Vol rate/Area] 35 mL/min/1.73 m2 Low >=59 [facility] Comment on above: Order Comment: Order added by Discern Expert. Result Comment: Market Editor renetta kidney disease could be indicated at eGFR's of less than 60 mL/min/1.73m2. Kidney failure is indicated at less than 15 mL/min/1.73m2. Performed By: #### 2 [id number], [id number], [id number], [id number], [id number], [id number] ####[facility] [address] [place] [address] GFR/1.73 sq M.predicted among blacks MDRD (S/P/Bld) [Vol rate/Area] 42 mL/min/1.73 m2 Low >=59 [facility] Comment on above: Order Comment: Order added by Discern Expert. Result Comment: eGFR is race adjusted. AA=. Performed By: #### 2 [id number], [id number], [id number], [id number], [id number], [id number] ####[facility] [address] [place] [address] GFR/1.73 sq M.predicted among non-blacks MDRD (S/P/Bld) [Vol rate/Area] 35 mL/min/1.73 m2 Low >=59 [facility] Comment on above: Order Comment: Order added by Discern Expert. Result Comment: Market Editor renetta kidney disease could be indicated at eGFR's of less than 60 mL/min/1.73m2. Kidney failure is indicated at less than 15 mL/min/1.73m2. Performed By: #### 2 [id number], [id number], [id number], [id number], [id number], [id number] ####[facility] [address] [place] [address] XR KNEE 3V AP/LAT/MERCHANT L Ton 10-02-2018 XR KNEE 3V AP/LAT/MERCHANT LT * * *Final Report* * * DATE OF EXAM: Oct 02 2018 9:41AM LUX 5208 - XR KNEE 3V AP/LAT/MERCHANT LT / PROCEDURE REASON: H/O total knee replacement, bilateral * * * * Physician Interpretation * * * * Knee radiographs HISTORY: 62 years old Clinical information: H/O total knee replacement, bilateral bilateral knee arthroplasty TECHNIQUE: Images: XR KNEE 3V AP/LAT/MERCHANT RT, XR KNEE 3V AP/LAT/MERCHANT LT Comparison: May 19, 2018. Left knee RESULT: Knee arthroplasty. No perihardware osteolysis. No findings of hardware fracture. No osseous fracture or dislocation. Right knee RESULT: Knee arthroplasty. Threaded screws extending into the posterior medial tibial plateau. No perihardware osteolysis. No hardware fracture. No osseous fracture or dislocation. IMPRESSION: 1. Postsurgical change. No complication identified.. Dance Coach: PSCB Transcribe Date/Time: Oct 02 2018 10:08A Dictated by : JEANA HAWKINS MD This examination was interpreted and the report reviewed and electronically signed by: JEANA HAWKINS MD on Oct 02 2018 10:09AM EST [id number] [facility] XR KNEE 3V AP/LAT/MERCHANT R Ton 10-02-2018 XR KNEE 3V AP/LAT/MERCHANT RT * * *Final Report* * * DATE OF EXAM: Oct 02 2018 9:41AM LUX 5209 - XR KNEE 3V AP/LAT/MERCHANT RT / PROCEDURE REASON: H/O total knee replacement, bilateral * * * * Physician Interpretation * * * * Knee radiographs HISTORY: 62 years old Clinical information: H/O total knee replacement, bilateral bilateral knee arthroplasty TECHNIQUE: Images: XR KNEE 3V AP/LAT/MERCHANT RT, XR KNEE 3V AP/LAT/MERCHANT LT Comparison: May 19, 2018. Left knee RESULT: Knee arthroplasty. No perihardware osteolysis. No findings of hardware fracture. No osseous fracture or dislocation. Right knee RESULT: Knee arthroplasty. Threaded screws extending into the posterior medial tibial plateau. No perihardware osteolysis. No hardware fracture. No osseous fracture or dislocation. IMPRESSION: 1. Postsurgical change. No complication identified.. Dance Coach: BEA Transcribe Date/Time: Oct 02 2018 10:08A Dictated by : JEANA HAWKINS MD This examination was interpreted and the report reviewed and electronically signed by: JEANA HAWKINS MD on Oct 02 2018 10:09AM EST [id number] [facility] XR KNEE 3V AP/LAT/MERCHANT L Ton 05-19-2018 XR KNEE 3V AP/LAT/MERCHANT LT * * *Final Report* * * DATE OF EXAM: May 19 2018 10:00AM LUX 5208 - XR KNEE 3V AP/LAT/MERCHANT LT / PROCEDURE REASON: Presence of artificial knee joint, bilateral * * * * Physician Interpretation * * * * History: Artificial knee joint FINDINGS: AP, PA, merchant, and lateral views of both knees have been obtained. Patient has had placement of bilateral total knee arthroplasties, hardware intact and alignment satisfactory. No evidence of prosthetic loosening or acute bony abnormality is seen. Patient has had bilateral patellar resurfacing. There may be a small right suprapatellar effusion. IMPRESSION: Postsurgical changes without interval complication. Small right-sided joint effusion suspected. Dance Coach: BEA Transcribe Date/Time: May 19 2018 12:19P Dictated by : MAYITO MCDONALD MD This examination was interpreted and the report reviewed and electronically signed by: MAYITO MCDONALD MD on May 19 2018 12:26PM EST [id number] [facility] XR KNEE 3V AP/LAT/MERCHANT R Ton 05-19-2018 XR KNEE 3V AP/LAT/MERCHANT RT * * *Final Report* * * DATE OF EXAM: May 19 2018 10:00AM LUX 5209 - XR KNEE 3V AP/LAT/MERCHANT RT / PROCEDURE REASON: Presence of artificial knee joint, bilateral * * * * Physician Interpretation * * * * History: Artificial knee joint FINDINGS: AP, PA, merchant, and lateral views of both knees have been obtained. Patient has had placement of bilateral total knee arthroplasties, hardware intact and alignment satisfactory. No evidence of prosthetic loosening or acute bony abnormality is seen. Patient has had bilateral patellar resurfacing. There may be a small right suprapatellar effusion. IMPRESSION: Postsurgical changes without interval complication. Small right-sided joint effusion suspected. Dance Coach: BEA Transcribe Date/Time: May 19 2018 12:19P Dictated by : MAYITO MCDONALD MD This examination was interpreted and the report reviewed and electronically signed by: MAYITO MCDONALD MD on May 19 2018 12:26PM EST [id number] [facility] CASE MANAGEMon 04-03-2018 CASE MANAGEM HNO ID: [id number] Author: Tracie JulianRn) MALORIE Hancock Service: Care Management Author Type: Registered Nurse Type: Care Mgt Progress Note Filed: 04/03/2018 12:18 PM Note Text: CARE MANAGEMENT DISCHARGE NOTE SERVICE DATE: 04/03/2018 SERVICE TIME: 04-03-18 LOS: 1 day Admission Date: 03/31/2018 DISCHARGE ARRANGEMENT (list agency and phone number) FDC facility: Was an expedited discharge program used? No Provider: [facility] CAREGIVER ASSESSMENT: Caregiver is ready, willing and able to meet the patient's needs as recommended by the inter-professional team? Yes Patient's transition needs and plan for meeting these needs: going to SNF Does the patient have an acute stroke diagnosis, or has the patient had a stroke during this admission? No HANDOFF COMMUNICATION: Dr. Moffett via [employer] faxed DC instructions TRANSPORTATION ARRANGEMENTS: Mode of Transportation: [employer] Agency and Phone #: Javier Durant [phone] . Date of Trip: 04-03-18 Type of Service: BLS Non-emergency Is Patient Medicaid Pending: No Discussion of financial coverage occurred with Patient - she paid $402.00 up front via [employer] Card to Javier Durant . Bleach Machine Operator Location: [facility] Destination: [facility] Financial Care Management Responsibility: None Estimated Charge: N/A Approving Recreational Director: N/A ADDITIONAL CONTACT RESOURCES: Discharge Information Row Name Patient Update from 02/24/2018 in Orthopaedics Admission (Current) from 03/31/2018 in [facility] 5D Medical Follow-Up Appointment Specialty ? [facility] Provider Name ? Poornima Mcknight RN Address ? [address] [place] [address], [address], [facility] ? [place] [address] Phone Number ? [phone] Appointment Date ? 04/21/18 Appointment Time ? 2:00PM Additonal Instructions ? Patient should bring the following to appointment: Picture ID, Insurance Card, Copay (if applicable), Medications/Med List. Please provide a minimum of 24 hours' notice for cancelations/rescheduling. Needs Prior to Discharge: Ready for Discharge SIGNATURE: Tracie Hancock RN PATIENT NAME: Minal Caputo DATE: April 03, 2018 TIME: 12:13 PM PAGER/CONTACT #: [phone] [facility] CONSULT PROGon 04-03-2018 Protein mass conc HNO ID: [id number] Author: Jose Velasco (Pa) Service: Pain Management Author Type: Physician Demand Planner Type: Consult Progress Note Filed: 04/03/2018 10:49 AM Note Text: INPATIENT ACUTE PAIN MGMT PROGRESS NOTES Patient Name: Minal Caputo SERVICE DATE: April 03, 2018 SERVICE TIME: 10:46 AM PRIMARY SERVICE: Ortho and Spine Consult by Dr Moffett for acute post operative pain INTERVAL HPI: Is the patient having any pain? Yes LOCATION: bilateral knee PAIN SCALE: 0 on a scale of 0-10 PAIN CHARACTER: aching FREQUENCY: (How often does the pain occur?) occurs intermittently 62yr W F cc bilateral knee pain Post surgery Pain only with moving/walking PERTINENT ROS: denies fever, chills, diarrhea, constipation, nausea, vomiting, CP, SOB, weakness, numbness, tingling or loss of bladder bowel control Denies muscle tightness All other reviewed and negative other than HPI. PAST MEDICAL HISTORY Diagnosis Date - GERD (gastroesophageal reflux disease) - Hiatal hernia - HLD (hyperlipidemia) - HTN (hypertension) - Obesity, unspecified - Other and unspecified hyperlipidemia - Scoliosis - Spinal stenosis, unspecified region other than cervical PAST SURGICAL HISTORY Procedure Laterality Date - , CLASSIC, IN-HOSP CARE 1980 - [facility] AFTER DELIVERY - PAST SURGICAL HISTORY OF 1986 spinal instrumentation (Valadez rods) - PAST SURGICAL HISTORY OF 2006 lumbar laminectomy FAMILY HISTORY Problem Relation Age of Onset - Cancer Father prostate - Heart Father chf - Lipids Father - Lipids Mother - Hypertension Father Social History Marital status: Spouse name: Years of education: Number of children: Social History Main Topics Smoking status: Never Smoker Smokeless tobacco: Never Used Alcohol use: Yes Comment: socially- couple times per year Drug use: No MEDICATIONS: Current hospital medications: cyclobenzaprine 5 mg tab(s) (FLEXERIL) 5 mg ORAL TID PRN ketorolac 30 mg injection (TORADOL) 30 mg INTRAVENOUS q 6 H lidocaine 10 mg/mL (1 %) 1-2 mg injection (XYLOCAINE) 0.1-0.2 mL INTRADERMAL PRN lactated ringers infusion 5-30 mL/hr INTRAVENOUS CONTINUOUS atorvastatin 20 mg tab(s) (LIPITOR) 20 mg ORAL DAILY metoprolol tartrate (short acting) 50 mg tab(s) (LOPRESSOR) 50 mg ORAL q 12 H furosemide 40 mg tab(s) (LASIX) 40 mg ORAL DAILY potassium chloride ER 10 mEq tab(s) (K-DUR, KLOR-CON) 10 mEq ORAL BID 0.9% NaCl 2-10 mL 2-10 mL INTRAVENOUS q 12 H morphine 2 mg injection 2 mg INTRAVENOUS q 2 H PRN oxyCODONE IR 5-10 mg tab(s) (ROXICODONE) 5-10 mg ORAL q 3 H PRN acetaminophen 1,000 mg tab(s) (TYLENOL) 1,000 mg ORAL q 8 H ondansetron 4 mg tab(s) (ZOFRAN) 4 mg ORAL q 6 H PRN ondansetron (PF) 4 mg injection (ZOFRAN) 4 mg INTRAVENOUS q 6 H PRN metoclopramide HCl 10 mg injection (REGLAN) 10 mg INTRAVENOUS q 6 H PRN magnesium hydroxide 400 mg/5 mL 30 mL (MOM) 30 mL ORAL DAILY PRN bisacodyl EC 10 mg tab(s) (DULCOLAX) 10 mg ORAL DAILY aluminum-magnesium hydroxide-simethicone 200-200-20 mg/5 mL 30 mL (MAALOX,MYLANTA,MAG-AL PLUS) 30 mL ORAL q 2 H PRN ascorbic acid (vitamin C) 500 mg tab(s) (VITAMIN C) 500 mg ORAL BID w MEALS docusate sodium 100 mg cap(s) (COLACE) 100 mg ORAL BID aspirin, enteric coated 81 mg tab(s) (ASPIRIN, ENTERIC COATED) 81 mg ORAL BID PHYSICAL EXAM: Blood pressure 155/69, pulse 80, temperature 36.7 ?C (98 ?F), temperature source Oral, resp. rate 16, height 160 cm (5' 2.99 ), weight 117 kg (257 lb 15 oz), last menstrual period 08/26/2006, SpO2 96 %. There is no height or weight on file to calculate BMI. GENERAL: Morbidly Obese, Alert, Mild Distress, Cooperative SKIN: Skin color, texture, turgor normal. No rashes or lesions. HEAD/SINUSES: No significant findings EYES: PERRLA, EOMI Heart: RRR without murmur, gallop, or rubs. No ectopy Lungs: Lungs clear to auscultation. No wheezing, rhonchi, rales, lungs clear to auscultation, no wheezing or rhonchi Abdomen: Abdomen soft, non-tender. Bowel sounds normal. No masses, organomegaly EXTREMITIES: bandaged knees NEURO: Motor and Sensory intact DATA: Diagnostic tests reviewed for today's visit: Most recent labs Glucose (mg/dL) Date Value 04/02/2018 129 Potassium (mmol/L) Date Value 04/02/2018 4.1 Sodium (mmol/L) Date Value 04/02/2018 136 Chloride (mmol/L) Date Value 04/02/2018 100 CO2 (mmol/L) Date Value 04/02/2018 25 Creatinine (mg/dL) Date Value 04/02/2018 0.83 BUN (mg/dL) Date Value 04/02/2018 16 Anion Gap (mmol/L) Date Value 04/02/2018 11 Calcium (mg/dL) Date Value 04/02/2018 8.2 WBC (k/uL) Date Value 04/02/2018 12.08 (H) RBC (m/uL) Date Value 04/02/2018 3.37 (L) Hemoglobin (g/dL) Date Value 04/02/2018 10.2 (L) Hematocrit (%) Date Value 04/02/2018 31.7 (L) MCV (fL) Date Value 04/02/2018 94.1 MCH (pG) Date Value 04/02/2018 30.3 MCHC (g/dL) Date Value 04/02/2018 32.2 RDW-CV (%) Date Value 04/02/2018 13.9 Platelet Count (k/uL) Date Value 04/02/2018 263 MPV (fL) Date Value 04/02/2018 10.9 ASSESSMENT AND PLAN: 62 year old WF s/p Bilateral TKA pod2 Pain stable Impression Acute post operative pain Acute bilateral knee pain Plan Continue tylenol continue flexeril 5mg tid prn for muscle spasm continue oxyir prn continue iv toradol 30mg q 6hrs If no relief with iv toradol then add MScontin 15mg bid But so far, patient is not requesting an increase. Discuss with Dr. Figueroa SIGNATURE: Jose Velasco PA-C DATE: April 03, 2018 TIME: 10:46 AM [facility] NURSING PROGon 04-03-2018 Protein mass conc HNO ID: [id number] Author: Radha (Rn) France RN Service: Nursing Author Type: Registered Nurse Type: Nursing Progress Note Filed: 04/03/2018 3:07 PM Note Text: Nursing Progress Note Patient Name: Minal Caputo Patient Location: [facility]-[id number] Daily Note:Report called to LENIN Duncan at [phone] This note was completed by: Radha Hough, MALORIE [facility] PROGRESSon 04-03-2018 Protein mass conc HNO ID: [id number] Author: Elaine Weathers) Fredrick Service: Orthopaedic Surgery Author Type: Resident Type: Progress Notes Filed: 04/03/2018 8:50 AM Note Text: ORTHOPAEDIC SURGERY PROGRESS NOTE Procedure: Procedure(s) and Anesthesia Type: * ARTHROPLASTY REPLACE JOINT TOTAL KNEE BILATERAL - General (Date: 03/31/2018) Subjective: No complaints. Vitals: BP 155/69 Pulse 80 Temp 36.7 ?C (98 ?F) (Oral) Resp 16 Ht 160 cm (5' 2.99 ) Wt 117 kg (257 lb 15 oz) LMP 08/26/2006 (Approximate) SpO2 96% BMI 45.70 kg/m? Intake/Output Summary (Last 24 hours) at 04/03/18 0850 Last data filed at 04/02/18 1800 Gross per 24 hour Intake 360 ml Output 900 ml Net -540 ml Physical Examination: General: alert/oriented x3, in no apparent distress Lower Ext: LLE: 5/5 ankle plantar/dorsiflex/EHL RLE: 5/5 ankle plantar/dorsiflex/EHL SILT saphenous, sural, DP, SP, plantar Palp DP; <2sec CR Lab: CBC, Coags, BMP, Mg, Phos Recent Labs 04/02/18 0426 04/01/18 0450 WBC 12.08* 15.94* HB 10.2* 11.1* HCT 31.7* 34.0* PLT 263 290 NA 136 138 K 4.1 4.0 CHLOR 100 102 CO2 25 24 BUN 16 16 CREAT 0.83 0.86 GLUC 129* 152* CA 8.2* 8.3* Impression/Plan: POD3 s/p bilateral TKA - Physical Therapy: wbat - Diet: reg - Pain control: po - Dressing management: maintain - Daniel: n/a - DVT prophylaxis: IPCD and asa - Antibiotic: Periop - Case management for discharge planning - Disposition: Discharge to SNF today. Elaine Alcala MD Resident, Orthopaedic Surgery [id number] April 03, 2018 [facility] THERAPY NTon 04-03-2018 THERAPY NT HNO ID: [id number] Author: Elsa (Pt) Bradford Service: Physical Therapy Author Type: Physical Therapist Type: Therapy (PT/OT/Speech/Resp) Filed: 04/03/2018 2:28 PM Note Text: Physical Therapy Treatment SERVICE DATE: 04/03/2018 SERVICE TIME: 1134 to 1205 ROOM: [place] [address] Recommended Discharge Disposition: Subacute/SNF Justification For Post Acute Needs: Anticipate that patient will require daily (5x/wk) skilled therapy in a post-acute facility setting at the time of acute hospital discharge;Willing to participate;Living the community premorbidly Anticipated Discharge Needs: Undetermined Recommended Discharge Equipment: No equipment needs anticipated PT Recommendations to Nursing: Ambulate with device;To bathroom;In halls;OOB for Meals;With assist of 1 person Device: Wheeled Walker PT 6 Clicks Score: 15 Precautions/Activity Restrictions: Total Knee Replacement;Weight Bearing Restrictions;Lines/Tubes/D rains Extremity With Weight Bearing Restricted: Left Lower Extremity;Right Lower Extremity Left Lower Extremity Weight Bearing Status: WBAT Right Lower Extremity Weight Bearing Status: WBAT ASSESSMENT : Patient progressing as expected. Pt participated in supine and seated TKR exercises and OOB mobility this session. Pt required Min-Mod A x1 for all OOB mobility. Pt continues to require VC for posture and proper use of wheeled walker. Continue to recommend PT at SNF level to improve functional mobility and safety prior to returning home. Patient Disposition at Start of Session: Supine in Bed;Call Myers in Reach Patient Disposition at End of Session: OOB in Chair;Call Myers in Reach Tolerance Limited By Pain Physical Therapy Problem List: Pain;Safety Deficits;Impaired Self Care;Decreased Activity Tolerance;Decreased Range Of Motion;Decreased Strength;Functional Mobility Impairment;Balance Impaired Patient /Caregiver Goals: Go To Rehab Goals for Plan of Care: Able to perform HEP with: Set Up Rolling with: Minimal Assistance Transfer supine to/from sit with: Minimal Assistance Transfer sit to/from stand with: Minimal Assistance Ambulate with: Contact Guard Assistance Distance: 50 feet Device: Wheeled Walker Progress Toward Goals: Progressing as expected Due To: pain Rehab Potential: Good PLAN: Treatment Frequency (times per week): 7 Current admission Treatment Interventions: Education;Self Care / Home Management;Energy Conservation Training;Joint Mobility;Strengthening;Fun ctional Mobility Training;Balance Training;Modalities Modalities: Ice Plan of Care developed with: Patient TREATMENT INTERVENTIONS: Therapy Diagnosis: Reduced mobility-other Interventions Provided: Therapeutic Exercise (98250);Gait Training (03990) Therapeutic Exercise (62901) Treatment Minutes: 21 1 unit Skilled Intervention(s): Instruction in therapeutic exercise anti-embolitics and TKR exercises. Verbal and tactile cuing provided . Education in TKR precautions, HEP, POC, nonpharm pain management, and importance of repositioning/activity. Performed anti-embolitics and TKR exercises bilaterally ([id number]). Gait Training (76191) Treatment Minutes: 10 1 unit Skilled Intervention(s): Instruction in sit to stand technique with proper hand placement and body positioning at edge of bed/chair, Instruction in stand to sit technique with LE's touching chair/bed and reaching back for surface, Instruction in sequencing, gait pattern, Instruction in correction of gait deviations, Instruction in WB precautions and Instruction in use of equipment, cues for sequence and pattern Total Timed Code Treatment Minutes: 31 Total Treatment Time (minutes): 31 FUNCTIONAL G CODE: PT 6 Clicks Score: 15 (04/03/18 1134) $ Mobility: Walking and Moving Around Current Status (G8978): CL (04/01/18 1358) $ Mobility: Walking and Moving Around Goal Status (G8979): CK (04/01/18 1358) Based on clinical assessment and the score on the 6 Clicks Functional Assessment Tool, the G code and corresponding severity modifiers are documented above. Physician signature certifies treatment plan of care established above for the period of 04/03/2018 through 04/17/2018. SUBJECTIVE: Current Hospital Course: Chart reviewed and no significant medical updates relevant to therapy were noted Reason for Physical Therapy Consult : s/p B TKR Relevant Past Medical History: OA, HLD, HTN, obesity, lumbar stenosis, scoliosis s/p valadez rods 1987 Patient Report: I'm leaving here at 3, so I'll be out of your hair. Getting in/out of bed is getting easier. Home Environment Patient Lives With: Self/Alone Assistance Available: None Entry To Home: Stairs;With Rail Number Of Stairs Into Home: 3 Number Of Stairs To Bed/Bath: 0 Tub/Shower Type: walk in shower Laundry: on main floor Equipment Owned: Commode-Raised;Wheeled Walker;Shower Chair;Grab Bars-Shower;Hand Held Shower Prior Functional Level: Within Functional Limits (ambulated with crutches for community distances) OBJECTIVE: CURRENT FUNCTIONAL STATUS: Current Functional Mobility Assist Level Additional Information Rolling Minimal Assistance Supine to Sit Minimal Assistance (with elevated HOB) Sit to Supine Moderate Assistance (assist with B LE) Scooting Minimal Assistance (at EOB) Sit to Stand Moderate Assistance (elevated bed) Stand to Sit Minimal Assistance Bed to Chair Maximal Assistance ( from elevated HOB) Bed To Chair Transfer Type: Stand Pivot Bed To Chair Transfer Equipment: Wheeled Walker Toilet/Commode Maximal Assistance ( to/from elevated HOB) Gait Minimal Assistance Gait Device: Wheeled Walker Gait Distance (feet): 5 feet x 2 (forward x 5', backpedal x5') Stairs Curb Step Car Transfer Gait Deviations Right Lower Extremity: Weight bearing decreased;Stance time decreased;Heel strike during initial stance decreased;Push-off during terminal stance decreased;Knee flexion during stance increased;Step length decreased Gait Deviations Left Lower Extremity: Weight bearing decreased;Stance time decreased;Heel strike during initial stance decreased;Push-off during terminal stance decreased;Knee flexion during stance increased;Step length decreased General Gait Deviations: Za decreased;Step length decreased;Flexed trunk posture;Shuffling Gait;Difficulty changing direction/turning;Non-func tional gait speed Please see discipline specific clinical documentation flowsheet for complete details for this therapy evaluation/treatment. SIGNATURE: CRISTOPHER Rico PATIENT NAME: Minal Caputo DATE: April 03, 2018 TIME: 12:17 PM I reviewed and agree with the documentation corresponding to this therapy visit. SIGNATURE: Elsa Felder PT DATE: April 03, 2018 TIME: 2:28 PM [facility] Basic Metabolic Panlon 04-02 Anion gap molar conc 11 mmol/L Normal 05-13 [facility] Comment on above: Performed By: #### T SCR30 #### [place] [address] Calcium mass conc 8.2 mg/dL Low 8.5-10.2 [facility] Comment on above: Performed By: #### T SCR30 #### [place] [address] Chloride molar conc 100 mmol/L Normal 97-105 [facility] Comment on above: Performed By: #### T SCR30 #### [place] [address] CO2 molar conc 25 mmol/L Normal 22-30 [facility] Comment on above: Performed By: #### T SCR30 #### [place] [address] Creatinine mass conc 0.83 mg/dL Normal 0.58-0.96 [facility] Comment on above: Performed By: #### T SCR30 #### [place] [address] eGFR- Amer. >60 Normal >60 [facility] Comment on above: Performed By: #### T SCR30 #### [place] [address] GFR/1.73 sq M predicted among non-blacks MDRD vol rate/area (S/P/Bld) mL/min/{1.73_m2} Normal >60 [facility] Comment on above: Performed By: #### T SCR30 #### [place] [address] Glucose mass conc 129 mg/dL High 74-99 [facility] Comment on above: Performed By: #### T SCR30 #### [place] [address] Potassium molar conc 4.1 mmol/L Normal 3.7-5.1 [facility] Comment on above: Performed By: #### T SCR30 #### [place] [id number] Sodium molar conc 136 mmol/L Normal 136-144 [facility] Comment on above: Performed By: #### T SCR30 #### [place] [address] Urea nitrogen mass conc 16 mg/dL Normal 7-21 [facility] Comment on above: Performed By: #### T SCR30 #### [place] [address] CASE MANAGEMon 04-02-2018 CASE MANAGEM HNO ID: [id number] Author: Tracie (Rn) MALORIE Hancock Service: Care Management Author Type: Registered Nurse Type: Care Mgt Progress Note Filed: 04/02/2018 9:17 AM Note Text: CARE MANAGEMENT PROGRESS NOTE SERVICE DATE: 04/02/2018 SERVICE TIME: 9:16 am LOS: 1 day Observation letter given to Minal Patito on 04-01-18 SIGNATURE: Tracie Hancock RN PATIENT NAME: Minal Caputo DATE: April 02, 2018 TIME: 9:16 AM PAGER/CONTACT #: [phone] [facility] CBC and Differentialon 04-02 Abs Baso <0.03 Normal <0.11 [facility] Comment on above: Performed By: #### T SCR30 #### [place] [address] Abs [place] 1.54 k/uL High <0.87 [facility] Comment on above: Performed By: #### T SCR30 #### [place] [address] Abs Neut 7.77 k/uL High 1.45-7.50 [facility] Comment on above: Performed By: #### T SCR30 #### [place] [address] Basophils/100 WBC (Bld) 0.2 % [facility] Comment on above: Performed By: #### T SCR30 #### [place] [address] Eosinophils #/vol (Bld) 0.07 10*3/uL Normal <0.46 [facility] Comment on above: Performed By: #### T SCR30 #### [place] [address] Eosinophils/100 WBC (Bld) 0.6 % Normal [facility] Comment on above: Performed By: #### T SCR30 #### [place] [address] Erythrocyte distribution width Ratio (RBC) 13.9 % Normal 11.5-15.0 [facility] Comment on above: Performed By: #### T SCR30 #### [place] [address] Hematocrit Volume Fraction (Bld) 31.7 % Low 36.0-46.0 [facility] Comment on above: Performed By: #### T SCR30 #### [place] [address] Hemoglobin mass conc (Bld) 10.2 g/dL Low 11.5-15.5 [facility] Comment on above: Performed By: #### T SCR30 #### [place] [address] Lymphocytes #/vol (Bld) 2.68 10*3/uL Normal 1.00-4.00 [facility] Comment on above: Performed By: #### T SCR30 #### [place] [address] Lymphocytes/100 WBC (Bld) 22.2 % Normal [facility] Comment on above: Performed By: #### T SCR30 #### [place] [address] MCH Entitic mass (RBC) 30.3 pG Normal 26.0-34.0 [facility] Comment on above: Performed By: #### T SCR30 #### [place] [address] MCHC mass conc (RBC) 32.2 g/dL Normal 30.5-36.0 [facility] Comment on above: Performed By: #### T SCR30 #### [place] [address] MCV Entitic volume (RBC) 94.1 fL Normal 80.0-100.0 [facility] Comment on above: Performed By: #### T SCR30 #### [place] [address] Monocytes/100 WBC (Bld) 12.7 % Normal [facility] Comment on above: Performed By: #### T SCR30 #### [place] [address] Neutrophils/100 WBC (Bld) 64.3 % [facility] Comment on above: Performed By: #### T SCR30 #### [place] [address] NRBCs 0.0 /100 WBC Normal 0 [facility] Comment on above: Performed By: #### T SCR30 #### [place] [address] Platelet mean volume Entitic volume (Bld) 10.9 fL Normal 9.0-12.7 [facility] Comment on above: Performed By: #### T SCR30 #### [place] [address] Platelets #/vol (Bld) 263 10*3/uL Normal 150-400 [facility] Comment on above: Performed By: #### T SCR30 #### [place] [address] RBC #/vol (Bld) 3.37 10*6/uL Low 3.90-5.20 [facility] Comment on above: Performed By: #### T SCR30 #### [place] [address] WBC #/vol (Bld) 12.08 10*3/uL High 3.70-11.00 [facility] Comment on above: Performed By: #### T SCR30 #### [facility] [address] [place] [address] CONSULTon 04-02-2018 CONSULT HNO ID: [id number] Author: Jose Velasco (Pa) Service: Pain Management Author Type: Physician Demand Planner Type: Consults Filed: 04/02/2018 3:15 PM Note Text: INPATIENT ACUTE PAIN MGMT consult Patient Name: Minal Caputo SERVICE DATE: April 02, 2018 SERVICE TIME: 3:08 PM PRIMARY SERVICE: Ortho and Spine Consult by Dr Moffett for acute post operative pain INTERVAL HPI: Is the patient having any pain? Yes LOCATION: bilateral knee PAIN SCALE: 3 on a scale of 0-10 at rest but 10/10 while walking PAIN CHARACTER: aching FREQUENCY: (How often does the pain occur?) occurs constantly PERTINENT ROS: denies fever, chills, diarrhea, constipation, nausea, vomiting, CP, SOB, weakness, numbness, tingling or loss of bladder bowel control Denies muscle tightness All other reviewed and negative other than HPI. PAST MEDICAL HISTORY Diagnosis Date - GERD (gastroesophageal reflux disease) - Hiatal hernia - HLD (hyperlipidemia) - HTN (hypertension) - Obesity, unspecified - Other and unspecified hyperlipidemia - Scoliosis - Spinal stenosis, unspecified region other than cervical PAST SURGICAL HISTORY Procedure Laterality Date - , CLASSIC, IN-HOSP CARE 1980 - [facility] AFTER DELIVERY - PAST SURGICAL HISTORY OF 1986 spinal instrumentation (Valadez rods) - PAST SURGICAL HISTORY OF 2006 lumbar laminectomy FAMILY HISTORY Problem Relation Age of Onset - Cancer Father prostate - Heart Father chf - Lipids Father - Lipids Mother - Hypertension Father Social History Marital status: Spouse name: Years of education: Number of children: Social History Main Topics Smoking status: Never Smoker Smokeless tobacco: Never Used Alcohol use: Yes Comment: socially- couple times per year Drug use: No MEDICATIONS: Current hospital medications: cyclobenzaprine 10 mg tab(s) (FLEXERIL) 10 mg ORAL TID PRN lidocaine 10 mg/mL (1 %) 1-2 mg injection (XYLOCAINE) 0.1-0.2 mL INTRADERMAL PRN lactated ringers infusion 5-30 mL/hr INTRAVENOUS CONTINUOUS atorvastatin 20 mg tab(s) (LIPITOR) 20 mg ORAL DAILY metoprolol tartrate (short acting) 50 mg tab(s) (LOPRESSOR) 50 mg ORAL q 12 H furosemide 40 mg tab(s) (LASIX) 40 mg ORAL DAILY potassium chloride ER 10 mEq tab(s) (K-DUR, KLOR-CON) 10 mEq ORAL BID 0.9% NaCl 2-10 mL 2-10 mL INTRAVENOUS q 12 H morphine 2 mg injection 2 mg INTRAVENOUS q 2 H PRN oxyCODONE IR 5-10 mg tab(s) (ROXICODONE) 5-10 mg ORAL q 3 H PRN acetaminophen 1,000 mg tab(s) (TYLENOL) 1,000 mg ORAL q 8 H ondansetron 4 mg tab(s) (ZOFRAN) 4 mg ORAL q 6 H PRN ondansetron (PF) 4 mg injection (ZOFRAN) 4 mg INTRAVENOUS q 6 H PRN metoclopramide HCl 10 mg injection (REGLAN) 10 mg INTRAVENOUS q 6 H PRN magnesium hydroxide 400 mg/5 mL 30 mL (MOM) 30 mL ORAL DAILY PRN bisacodyl EC 10 mg tab(s) (DULCOLAX) 10 mg ORAL DAILY aluminum-magnesium hydroxide-simethicone 200-200-20 mg/5 mL 30 mL (MAALOX,MYLANTA,MAG-AL PLUS) 30 mL ORAL q 2 H PRN ascorbic acid (vitamin C) 500 mg tab(s) (VITAMIN C) 500 mg ORAL BID w MEALS docusate sodium 100 mg cap(s) (COLACE) 100 mg ORAL BID aspirin, enteric coated 81 mg tab(s) (ASPIRIN, ENTERIC COATED) 81 mg ORAL BID PHYSICAL EXAM: Blood pressure 160/73, pulse 90, temperature 37.1 ?C (98.8 ?F), temperature source Oral, resp. rate 18, height 160 cm (5' 2.99 ), weight 117 kg (257 lb 15 oz), last menstrual period 08/26/2006, SpO2 96 %. There is no height or weight on file to calculate BMI. GENERAL: Morbidly Obese, Alert, Mild Distress, Cooperative SKIN: Skin color, texture, turgor normal. No rashes or lesions. HEAD/SINUSES: No significant findings EYES: PERRLA, EOMI Heart: RRR without murmur, gallop, or rubs. No ectopy Lungs: Lungs clear to auscultation. No wheezing, rhonchi, rales, lungs clear to auscultation, no wheezing or rhonchi Abdomen: Abdomen soft, non-tender. Bowel sounds normal. No masses, organomegaly EXTREMITIES: bandaged knees NEURO: Motor and Sensory intact DATA: Diagnostic tests reviewed for today's visit: Most recent labs Glucose (mg/dL) Date Value 04/02/2018 129 Potassium (mmol/L) Date Value 04/02/2018 4.1 Sodium (mmol/L) Date Value 04/02/2018 136 Chloride (mmol/L) Date Value 04/02/2018 100 CO2 (mmol/L) Date Value 04/02/2018 25 Creatinine (mg/dL) Date Value 04/02/2018 0.83 BUN (mg/dL) Date Value 04/02/2018 16 Anion Gap (mmol/L) Date Value 04/02/2018 11 Calcium (mg/dL) Date Value 04/02/2018 8.2 WBC (k/uL) Date Value 04/02/2018 12.08 (H) RBC (m/uL) Date Value 04/02/2018 3.37 (L) Hemoglobin (g/dL) Date Value 04/02/2018 10.2 (L) Hematocrit (%) Date Value 04/02/2018 31.7 (L) MCV (fL) Date Value 04/02/2018 94.1 MCH (pG) Date Value 04/02/2018 30.3 MCHC (g/dL) Date Value 04/02/2018 32.2 RDW-CV (%) Date Value 04/02/2018 13.9 Platelet Count (k/uL) Date Value 04/02/2018 263 MPV (fL) Date Value 04/02/2018 10.9 ASSESSMENT AND PLAN: 62 year old WF s/p Bilateral TKA pod1 Pain not controlled Impression Acute post operative pain Acute bilateral knee pain Plan Continue tylenol Will decrease flexeril 5mg tid prn for muscle spasm continue oxyir prn Will add iv toradol 30mg q 6hrs If no relief with iv toradol then add MScontin 15mg bid Discuss with Dr. Walker SIGNATURE: Jose Vleasco PA-C DATE: April 02, 2018 TIME: 3:08 PM [facility] PROGRESSon 04-02-2018 Protein mass conc HNO ID: [id number] Author: Jennifer JulianMaster Ship-Bc) David Service: Hospital Medicine Author Type: Nurse Practitioner Type: Progress Notes Filed: 04/02/2018 4:25 PM Note Text: s/p BTKR POD#2 -pain issues; pain mgt consult -multicare team rounds in am -PT/OT -Needs SNF, d/c Thurs $ambulette? -wbc trending down, IS, needs lots of motivation To mobilize Anemia, acute blood loss -stable BP 160/73 Pulse 90 Temp 37.1 ?C (98.8 ?F) (Oral) Resp 18 Ht 160 cm (5' 2.99 ) Wt 117 kg (257 lb 15 oz) LMP 08/26/2006 (Approximate) SpO2 96% BMI 45.70 kg/m? WBC (k/uL) Date Value 04/02/2018 12.08 (H) RBC (m/uL) Date Value 04/02/2018 3.37 (L) Hemoglobin (g/dL) Date Value 04/02/2018 10.2 (L) Hematocrit (%) Date Value 04/02/2018 31.7 (L) MCV (fL) Date Value 04/02/2018 94.1 MCH (pG) Date Value 04/02/2018 30.3 MCHC (g/dL) Date Value 04/02/2018 32.2 RDW-CV (%) Date Value 04/02/2018 13.9 Platelet Count (k/uL) Date Value 04/02/2018 263 MPV (fL) Date Value 04/02/2018 10.9 Glucose (mg/dL) Date Value 04/02/2018 129 (H) BUN (mg/dL) Date Value 04/02/2018 16 Creatinine (mg/dL) Date Value 04/02/2018 0.83 Sodium (mmol/L) Date Value 04/02/2018 136 Potassium (mmol/L) Date Value 04/02/2018 4.1 Chloride (mmol/L) Date Value 04/02/2018 100 CO2 (mmol/L) Date Value 04/02/2018 25 Protein, Total (g/dL) Date Value 03/19/2018 6.8 Albumin (g/dL) Date Value 03/19/2018 4.2 Calcium (mg/dL) Date Value 04/02/2018 8.2 (L) Alkaline Phosphatase (U/L) Date Value 03/19/2018 107 Bilirubin, Total (mg/dL) Date Value 03/19/2018 0.5 AST (U/L) Date Value 03/19/2018 27 ALT (U/L) Date Value 03/19/2018 38 I spent 15 minutes in the visit, with more than 50% of the total [id number] time of the visit in counseling / coordination of care. [facility] Protein mass conc HNO ID: [id number] Author: Ady Aragon Service: General Internal Medicine Author Type: Physician Type: Progress Notes Filed: 04/02/2018 3:43 PM Note Text: INPATIENT PROGRESS NOTE SERVICE DATE: 04/02/2018 SERVICE TIME: 3:40 PM PRIMARY SERVICE: ortho Subjective CHIEF COMPLAINT: post op pain INTERVAL HPI: seen for medical follow up. Reporting bilateral knee pain. No SOB. No chest pain Current hospital medications: cyclobenzaprine 5 mg tab(s) (FLEXERIL) 5 mg ORAL TID PRN ketorolac 30 mg injection (TORADOL) 30 mg INTRAVENOUS q 6 H lidocaine 10 mg/mL (1 %) 1-2 mg injection (XYLOCAINE) 0.1-0.2 mL INTRADERMAL PRN lactated ringers infusion 5-30 mL/hr INTRAVENOUS CONTINUOUS atorvastatin 20 mg tab(s) (LIPITOR) 20 mg ORAL DAILY metoprolol tartrate (short acting) 50 mg tab(s) (LOPRESSOR) 50 mg ORAL q 12 H furosemide 40 mg tab(s) (LASIX) 40 mg ORAL DAILY potassium chloride ER 10 mEq tab(s) (K-DUR, KLOR-CON) 10 mEq ORAL BID 0.9% NaCl 2-10 mL 2-10 mL INTRAVENOUS q 12 H morphine 2 mg injection 2 mg INTRAVENOUS q 2 H PRN oxyCODONE IR 5-10 mg tab(s) (ROXICODONE) 5-10 mg ORAL q 3 H PRN acetaminophen 1,000 mg tab(s) (TYLENOL) 1,000 mg ORAL q 8 H ondansetron 4 mg tab(s) (ZOFRAN) 4 mg ORAL q 6 H PRN ondansetron (PF) 4 mg injection (ZOFRAN) 4 mg INTRAVENOUS q 6 H PRN metoclopramide HCl 10 mg injection (REGLAN) 10 mg INTRAVENOUS q 6 H PRN magnesium hydroxide 400 mg/5 mL 30 mL (MOM) 30 mL ORAL DAILY PRN bisacodyl EC 10 mg tab(s) (DULCOLAX) 10 mg ORAL DAILY aluminum-magnesium hydroxide-simethicone 200-200-20 mg/5 mL 30 mL (MAALOX,MYLANTA,MAG-AL PLUS) 30 mL ORAL q 2 H PRN ascorbic acid (vitamin C) 500 mg tab(s) (VITAMIN C) 500 mg ORAL BID w MEALS docusate sodium 100 mg cap(s) (COLACE) 100 mg ORAL BID aspirin, enteric coated 81 mg tab(s) (ASPIRIN, ENTERIC COATED) 81 mg ORAL BID Objective PHYSICAL EXAM: BP 160/73 Pulse 90 Temp (Src) 98.8 (Oral) Resp 18 Ht 5' 2.992 (1.60m) Wt 257 lb 15 oz (117.0kg) SpO2 96% LMP 08/26/2006 BMI 45.70 kg/(m2). Physical Exam Performed GENERAL: Mild Distress LUNGS: clear CARDIAC: Rhythm: regular rate and rhythm ABDOMEN: Soft, nontender DATA: Diagnostic tests reviewed for today's visit: Most recent labs Assessment/Plan Principal Problem: Arthritis of both knees POA: Unknown Assessment AND Plan: POD #2 HTN. BP up a bit today. Back on home meds Will continue to monitor and consider adjusting BP meds if needed Medication and Non-Pharmacologic VTE Prophylaxis/Anticoagulants Anticoagulant AND Antiplatelet Medications Start Dose Route Frequency Ordered Stop 04/01/18 0900 aspirin, enteric coated 81 mg tab(s) (ASPIRIN, ENTERIC COATED) (Orthopedic High Risk ) 81 mg ORAL 2 TIMES DAILY 03/31/182023 -- 03/31/18 0000 aspirin, enteric coated (ECOTRIN LOW STRENGTH) 81 mg EC tablet 81 mg ORAL 2 TIMES DAILY 03/31/18 1139 04/28/18 2359 03/31/18 2030 pneumatic compression stockings ([place]) 03/31/182029 activity - mobilize patient [place] 03/31/18 1030 graduated compression stockings ([place]) VTE Prophylaxis: VTE prophylaxis appropriate SIGNATURE: Ady Argaon MD PATIENT NAME: Minal Caputo DATE: April 02, 2018 TIME: 3:40 PM PAGER: [phone] [facility] Protein mass conc HNO ID: [id number] Author: Elaine Alcala Service: Orthopaedic Surgery Author Type: Resident Type: Progress Notes Filed: 04/03/2018 8:50 AM Note Text: ORTHOPAEDIC SURGERY PROGRESS NOTE Procedure: Procedure(s) and Anesthesia Type: * ARTHROPLASTY REPLACE JOINT TOTAL KNEE BILATERAL - General (Date: 03/31/2018) Subjective: No complaints. Vitals: BP 155/52 Pulse 86 Temp 36.9 ?C (98.4 ?F) (Oral) Resp 16 Ht 160 cm (5' 2.99 ) Wt 117 kg (257 lb 15 oz) LMP 08/26/2006 (Approximate) SpO2 95% BMI 45.70 kg/m? Intake/Output Summary (Last 24 hours) at 04/02/18 1037 Last data filed at 04/02/18 0800 Gross per 24 hour Intake 2340 ml Output 775 ml Net 1565 ml Physical Examination: General: alert/oriented x3, in no apparent distress Lower Ext: LLE: 5/5 ankle plantar/dorsiflex/EHL RLE: 5/5 ankle plantar/dorsiflex/EHL SILT saphenous, sural, DP, SP, plantar Palp DP; <2sec CR Lab: CBC, Coags, BMP, Mg, Phos Recent Labs 04/02/18 0426 04/01/18 0450 WBC 12.08* 15.94* HB 10.2* 11.1* HCT 31.7* 34.0* PLT 263 290 NA 136 138 K 4.1 4.0 CHLOR 100 102 CO2 25 24 BUN 16 16 CREAT 0.83 0.86 GLUC 129* 152* CA 8.2* 8.3* Impression/Plan: POD2 s/p bilateral TKA - Physical Therapy: wbat - Diet: reg - Pain control: po - Dressing management: maintain - Daniel: n/a - DVT prophylaxis: IPCD and asa - Antibiotic: Periop - Case management for discharge planning - Disposition: SNF today. Elaine Alcala MD Resident, Orthopaedic Surgery [id number] April 02, 2018 10:37 AM Normal [facility] THERAPY NTon 04-02-2018 THERAPY NT HNO ID: [id number] Author: Elsa (Pt) Bradford Service: Physical Therapy Author Type: Physical Therapist Type: Therapy (PT/OT/Speech/Resp) Filed: 04/02/2018 4:54 PM Note Text: Physical Therapy Treatment SERVICE DATE: 04/02/2018 SERVICE TIME: 1536 to 1610 ROOM: [place] [address] Recommended Discharge Disposition: Subacute/SNF Justification For Post Acute Needs: Anticipate that patient will require daily (5x/wk) skilled therapy in a post-acute facility setting at the time of acute hospital discharge;Willing to participate;Living the community premorbidly Anticipated Discharge Needs: Undetermined Recommended Discharge Equipment: No equipment needs anticipated PT Recommendations to Nursing: Ambulate with device;To bathroom;In halls;OOB for Meals;With assist of 1 person Device: Wheeled Walker PT 6 Clicks Score: 13 Precautions/Activity Restrictions: Total Knee Replacement;Weight Bearing Restrictions;Lines/Tubes/D rains Extremity With Weight Bearing Restricted: Left Lower Extremity;Right Lower Extremity Left Lower Extremity Weight Bearing Status: WBAT Right Lower Extremity Weight Bearing Status: WBAT ASSESSMENT : Patient willing to participate in OOB mobility this session. Pt demonstrates hesitancy to WB through BLE and inefficient use of BUE on wheeled walker. Pt required Mod/Max A x2 for all OOB mobility with frequent VC for posture, use of wheeled walker, and encouragement. Pt up in bedside chair at end of session. Continue to recommend PT at SNF level for improvement of functional mobility and safety prior to returning home. Patient Disposition at Start of Session: Supine in Bed;Call Myers in Reach Patient Disposition at End of Session: OOB in Chair;Call Myers in Reach Tolerance Limited By Pain Physical Therapy Problem List: Pain;Safety Deficits;Impaired Self Care;Decreased Strength;Decreased Activity Tolerance;Decreased Range Of Motion;Functional Mobility Impairment;Balance Impaired Patient /Caregiver Goals: Go To Rehab Goals for Plan of Care: Able to perform HEP with: Set Up Rolling with: Minimal Assistance Transfer supine to/from sit with: Minimal Assistance Transfer sit to/from stand with: Minimal Assistance Ambulate with: Contact Guard Assistance Distance: 50 feet Device: Wheeled Walker Progress Toward Goals: Progressing as expected Due To: pain Rehab Potential: Good PLAN: Treatment Frequency (times per week): 7 Current admission Treatment Interventions: Education;Self Care / Home Management;Energy Conservation Training;Joint Mobility;Strengthening;Fun ctional Mobility Training;Balance Training;Modalities Modalities: Ice Plan of Care developed with: Patient TREATMENT INTERVENTIONS: Therapy Diagnosis: Reduced mobility-other Interventions Provided: Therapeutic Exercise (75502);Therapeutic Activity (84304) Therapeutic Exercise (92442) Treatment Minutes: 14 1 unit Skilled Intervention(s): Instruction in therapeutic exercise seated TKR exercises. Verbal and tactile cuing provided . Education in HEP, POC, nonpharm pain management and importance of repositioning/activity. Performed seated TKR exercises ([id number]). Therapeutic Activity (97541) Treatment Minutes: 20 1 unit Skilled Intervention(s): Instructed patient in supine to sit pushing with upper extremities to sit up Instructed patient in sit to supine using safe, effective technique Instruction in stand to sit technique with lower extremities touching chair/bed and reaching back for surface Instruction in sit to and from stand technique with proper hand placement and body positioning at edge of bed/chair Education with commode/toilet transfer and management, stand-pivot transfer from EOB to chair with wheeled walker. Total Timed Code Treatment Minutes: 34 Total Treatment Time (minutes): 34 FUNCTIONAL G CODE: PT 6 Clicks Score: 13 (04/02/18 1536) $ Mobility: Walking and Moving Around Current Status (G8978): CL (04/01/18 1358) $ Mobility: Walking and Moving Around Goal Status (G8979): CK (04/01/18 1358) Based on clinical assessment and the score on the 6 Clicks Functional Assessment Tool, the G code and corresponding severity modifiers are documented above. Physician signature certifies treatment plan of care established above for the period of 04/02/2018 through 04/16/2018. SUBJECTIVE: Current Hospital Course: Chart reviewed and no significant medical updates relevant to therapy were noted Reason for Physical Therapy Consult : s/p B TKR Relevant Past Medical History: OA, HLD, HTN, obesity, lumbar stenosis, scoliosis s/p valadez rods 1987 Patient Report: The bed is more comfortable than the chair. Home Environment Patient Lives With: Self/Alone Assistance Available: None Entry To Home: Stairs;With Rail Number Of Stairs Into Home: 3 Number Of Stairs To Bed/Bath: 0 Tub/Shower Type: walk in shower Laundry: on main floor Equipment Owned: Commode-Raised;Wheeled Walker;Shower Chair;Grab Bars-Shower;Hand Held Shower Prior Functional Level: Within Functional Limits (ambulated with crutches for community distances) OBJECTIVE: CURRENT FUNCTIONAL STATUS: Current Functional Mobility Assist Level Additional Information Rolling Minimal Assistance Supine to Sit Moderate Assistance (LE management) Sit to Supine Moderate Assistance (assist with B LE) Scooting Minimal Assistance Sit to Stand Maximal Assistance (x2 from elevated HOB) Stand to Sit Minimal Assistance (x2) Bed to Chair Maximal Assistance (x2 from elevated HOB) Bed To Chair Transfer Type: Stand Pivot Bed To Chair Transfer Equipment: Wheeled Walker Toilet/Commode Maximal Assistance (x2 to/from elevated HOB) Gait Minimal Assistance (x2) Gait Device: Wheeled Walker Gait Distance (feet): 2 feet x 4 Stairs Curb Step Car Transfer Gait Deviations Right Lower Extremity: Weight bearing decreased;Stance time decreased;Heel strike during initial stance decreased;Push-off during terminal stance decreased;Knee flexion during stance increased;Step length decreased Gait Deviations Left Lower Extremity: Weight bearing decreased;Stance time decreased;Heel strike during initial stance decreased;Push-off during terminal stance decreased;Knee flexion during stance increased;Step length decreased General Gait Deviations: Za decreased;Step length decreased;Flexed trunk posture;Difficulty changing direction/turning;Non-func tional gait speed Please see discipline specific clinical documentation flowsheet for complete details for this therapy evaluation/treatment. SIGNATURE: CRISTOPHER Rico PATIENT NAME: Minal Caputo DATE: April 02, 2018 TIME: 4:25 PM I reviewed and agree with the documentation corresponding to this therapy visit. SIGNATURE: Elsa Felder, PT DATE: April 02, 2018 TIME: 4:53 PM [facility] THERAPY NT HNO ID: [id number] Author: Elsa Felder Service: Physical Therapy Author Type: Physical Therapist Type: Therapy (PT/OT/Speech/Resp) Filed: 04/02/2018 2:03 PM Note Text: Physical Therapy Treatment SERVICE DATE: 04/02/2018 SERVICE TIME: 1055 to 1118 ROOM: [address] Recommended Discharge Disposition: Subacute/SNF Justification For Post Acute Needs: Anticipate that patient will require daily (5x/wk) skilled therapy in a post-acute facility setting at the time of acute hospital discharge;Willing to participate;Living the community premorbidly Anticipated Discharge Needs: Undetermined Recommended Discharge Equipment: No equipment needs anticipated PT Recommendations to Nursing: Ambulate with device;To bathroom;In halls;OOB for Meals;With assist of 1 person Device: Wheeled Walker PT 6 Clicks Score: 13 Precautions/Activity Restrictions: Total Knee Replacement;Weight Bearing Restrictions;Lines/Tubes/D rains Extremity With Weight Bearing Restricted: Left Lower Extremity;Right Lower Extremity Left Lower Extremity Weight Bearing Status: WBAT Right Lower Extremity Weight Bearing Status: WBAT ASSESSMENT : Pt FOB elevated upon PT presentation, pt educated to keep FOB flat and legs straight when in bed. Pt only tolerated TKR bed exercises bilaterally this session. Patient declined OOB mobility this session, becoming tearful and stating I don't think I'm going to eat lunch. I don't feel good, I haven't slept, and I'm in a lot of pain and that she would get up later. Pt educated on importance of repositioning and OOB mobility for functional mobility progression and recovery. Continue to recommend PT at SNF level. Patient Disposition at Start of Session: Supine in Bed;Call Myers in Reach Patient Disposition at End of Session: Call Myers in Reach;SCDs (sidelying in bed) Tolerance Limited By Pain Physical Therapy Problem List: Pain;Safety Deficits;Impaired Self Care;Decreased Activity Tolerance;Decreased Range Of Motion;Decreased Strength;Functional Mobility Impairment;Balance Impaired Patient /Caregiver Goals: Go To Rehab Goals for Plan of Care: Able to perform HEP with: Set Up Rolling with: Minimal Assistance Transfer supine to/from sit with: Minimal Assistance Transfer sit to/from stand with: Minimal Assistance Ambulate with: Contact Guard Assistance Distance: 50 feet Device: Wheeled Walker Progress Toward Goals: Progressing slower than expected Due To: pain Rehab Potential: Good PLAN: Treatment Frequency (times per week): 7 Current admission Treatment Interventions: Education;Self Care / Home Management;Energy Conservation Training;Joint Mobility;Strengthening;Fun ctional Mobility Training;Balance Training;Modalities Modalities: Ice Plan of Care developed with: Patient TREATMENT INTERVENTIONS: Therapy Diagnosis: Reduced mobility-other Interventions Provided: Therapeutic Exercise (64986) Therapeutic Exercise (91087) Treatment Minutes: 23 2 units Skilled Intervention(s): Instruction in therapeutic exercise anti-embolitics and TKR exercises. Verbal and tactile cuing provided . Education in HEP, POC, nonpharm pain management, and importance of repositioning/activity. Performed anti-embolitics and supine TKR exercises ([id number] bilat). Total Timed Code Treatment Minutes: 23 Total Treatment Time (minutes): 23 FUNCTIONAL G CODE: PT 6 Clicks Score: 13 (04/02/18 1055) $ Mobility: Walking and Moving Around Current Status (G8978): CL (04/01/18 1358) $ Mobility: Walking and Moving Around Goal Status (G8979): CK (04/01/18 1358) Based on clinical assessment and the score on the 6 Clicks Functional Assessment Tool, the G code and corresponding severity modifiers are documented above. Physician signature certifies treatment plan of care established above for the period of 04/02/2018 through 04/16/2018. SUBJECTIVE: Current Hospital Course: Chart reviewed and no significant medical updates relevant to therapy were noted Reason for Physical Therapy Consult : s/p B TKR Relevant Past Medical History: OA, HLD, HTN, obesity, lumbar stenosis, scoliosis s/p valadez rods 1986 Patient Report: I don't know who lifted the legs of the bed up. I'll do it later. Home Environment Patient Lives With: Self/Alone Assistance Available: None Entry To Home: Stairs;With Rail Number Of Stairs Into Home: 3 Number Of Stairs To Bed/Bath: 0 Tub/Shower Type: walk in shower Laundry: on main floor Equipment Owned: Commode-Raised;Wheeled Walker;Shower Chair;Grab Bars-Shower;Hand Held Shower Prior Functional Level: Within Functional Limits (ambulated with crutches for community distances) OBJECTIVE: CURRENT FUNCTIONAL STATUS: Current Functional Mobility Assist Level Additional Information Rolling Minimal Assistance Supine to Sit Sit to Supine Scooting Sit to Stand Stand to Sit Bed to Chair Toilet/Commode Gait Stairs Curb Step Car Transfer Gait Deviations Right Lower Extremity: Weight bearing decreased;Stance time decreased;Step length decreased;Knee flexion during stance increased Gait Deviations Left Lower Extremity: Weight bearing decreased;Stance time decreased;Knee flexion during stance increased;Step length decreased General Gait Deviations: Za decreased;Flexed trunk posture;Shuffling Gait;Non-functional gait speed;Wide base of support Please see discipline specific clinical documentation flowsheet for complete details for this therapy evaluation/treatment. SIGNATURE: CRISTOPHER Rico PATIENT NAME: Minal Caputo DATE: April 02, 2018 TIME: 11:28 AM I reviewed and agree with the documentation corresponding to this therapy visit. SIGNATURE: Elsa Felder PT DATE: April 02, 2018 TIME: 2:02 PM [facility] THERAPY NT HNO ID: [id number] Author: Zacarias Reardon (Ot/L) Nasim Service: Occupational Therapy Author Type: Occupational Therapist Type: Therapy (PT/OT/Speech/Resp) Filed: 04/02/2018 9:45 AM Note Text: Occupational Therapy Treatment SERVICE DATE: 04/02/2018 SERVICE TIME: 853 to 921 ROOM: [place] [address] Recommended Discharge Disposition: Subacute/SNF Justification For Post Acute Needs: Living the community premorbidly;Medically complex;May not tolerate higher intensity programing;Anticipate that patient will require daily (5x/wk) skilled therapy in a post-acute facility setting at the time of acute hospital discharge Anticipated Discharge Needs: Undetermined Recommended Discharge Equipment: To Be Determined OT Recommendations to Nursing: ADL?s in chair;Bedside Commode for Toileting;OOB for meals;Edge of bed ADL?s;With assist of 2 people Equipment: Wheeled Walker OT 6 Clicks Score: 18 Precautions/Activity Restrictions: Total Knee Replacement;Weight Bearing Restrictions;Lines/Tubes/D rains Extremity With Weight Bearing Restricted: Left Lower Extremity;Right Lower Extremity Left Lower Extremity Weight Bearing Status: WBAT Right Lower Extremity Weight Bearing Status: WBAT ASSESSMENT: Patient presents with decreased pain tolerance, impaired sitting dynamic balance, standing static and dynamic balance impacting functional mobility and self-care. Patient will benefit from additional skilled OT services in the SNF setting to maximize independence with ADLs and self-care. Patient will require stretcher transfer via ambulette to the SNF setting due to increased fatigue and decreased strength. Patient Disposition at Start of Session: Supine in Bed;Call Myers in Reach;SCDs Patient Disposition at End of Session: OOB in Chair;Call Myers in Reach;SCDs Tolerated Full Session Occupational Therapy Problem List: Education Deficit;Pain;Safety Deficits;Decreased Activity Tolerance;Impaired Self Care;Decreased Strength;Functional Mobility Impairment;Balance Impaired Patient /Caregiver Goals: Go To Rehab Goals for Plan of Care: Lower Body Bathing with: Minimal Assistance Lower Body Dressing with: Minimal Assistance Toilet Hygiene with: Minimal Assistance Toilet Transfer with: Minimal Assistance Demonstrate Competence With Education with: Modified Independent Progress Toward Goals: Progressing slower than expected Due To: secondary to pain and lack of sleep Rehab Potential: Good PLAN: Treatment Frequency (times per week): 5 Current admission Treatment Interventions: Education;Self Care / Home Management;Energy Conservation Training;Functional Mobility Training;Balance Training;Pain Management Plan of Care developed with: Patient TREATMENT INTERVENTIONS: Therapy Diagnosis: Reduced mobility-other;Decreased activities of daily living (ADL) Interventions Provided: Therapeutic Activity (83474);Self Residential Management (67468) Self Residential Management (97469) Treatment Minutes: 14 1 unit Skilled Intervention(s): Educated patient on POC, and discharge plan. Educated patient on need for stretcher transfer to the SNF setting for safety. Facilitated patient completion of upper and lower body bathing and dressing while adhering to knee precautions. Educated patient on importance of functional mobility and positive benefits on pain management. Facilitated patient completion of rolling, supine to sit, EOB to BSC, and BSC to chair while adhering to post-op knee precautions. Total Timed Code Treatment Minutes: 28 Total Treatment Time (minutes): 28 FUNCTIONAL G CODE: OT 6 Clicks Score: 18 (04/02/18 0854) Self Care Current Status (G8987): CK (04/01/18 1125) Self Care Goal Status (G8988): CJ (04/01/18 1125) Based on clinical assessment and the score on the 6 Clicks Functional Assessment Tool, the G code and corresponding severity modifiers are documented above. SUBJECTIVE: Current Hospital Course: Chart reviewed and no significant medical updates relevant to therapy were noted Reason for Occupational Therapy Consult: s/p bilateral TKR Relevant Past Medical History: GERD, hiatal hernia, HLD, HTN, scoliosis, spinal stenosis, lumbar laminectomy Patient Report: Patient stated she did not sleep last night due to back pain. Home Environment Patient Lives With: Self/Alone Assistance Available: None Entry To Home: Stairs;With Rail Number Of Stairs Into Home: 3 Number Of Stairs To Bed/Bath: 0 Tub/Shower Type: walk in shower Laundry: on main floor Equipment Owned: Commode-Raised;Wheeled Walker;Shower Chair;Grab Bars-Shower;Hand Held Shower Prior Functional Level: Within Functional Limits (ambulated with crutches for community distances) OBJECTIVE: CURRENT FUNCTIONAL STATUS: Current Activities of Daily Living Assist Level Feeding Independent Grooming Independent Bathing Upper Body Independent Bathing Lower Body Maximal Assistance Dressing Upper Body Supervision Dressing Lower Body Maximal Assistance Toileting Maximal Assistance Functional Mobility Assist Level Rolling Minimal Assistance Supine to Sit Minimal Assistance Sit to Supine Maximal Assistance Scooting Contact Guard Assistance Sit to Stand Maximal Assistance Stand to Sit Contact Guard Assistance Bed to Chair Maximal Assistance Stand Pivot Wheeled Walker Toilet/Commode Maximal Assistance Functional Mobility Maximal Assistance Wheeled Walker Balance: Static Standing;Dynamic Standing Dynamic Sitting Balance: Stand By Assistance Static Standing Balance: Maximal Assistance Dynamic Standing Balance: Maximal Assistance Please see discipline specific clinical documentation flowsheet for complete details for this therapy evaluation/treatment. SIGNATURE: Teodora Quach/OT PATIENT NAME: Minal Caputo DATE: April 02, 2018 TIME: 9:35 AM I reviewed and agree with the documentation corresponding to this therapy visit. SIGNATURE: Zacarias Rouse OTR/L DATE: April 02, 2018 TIME: 9:43 AM Normal [facility] Basic Metabolic Panlon 04-01 Anion gap molar conc 12 mmol/L Normal 9-18 [facility] Comment on above: Performed By: #### C BC, BMP ####[place] [address] [address] Calcium mass conc 8.3 mg/dL Low 8.5-10.2 [facility] Comment on above: Performed By: #### C BC, BMP ####[place] [address] [address] Chloride molar conc 102 mmol/L Normal 97-105 [facility] Comment on above: Performed By: #### C BC, BMP ####[facility] CO2 molar conc 24 mmol/L Normal 22-30 [facility] Comment on above: Performed By: #### C BC, BMP ####[place] [id number] Creatinine mass conc 0.86 mg/dL Normal 0.58-0.96 [facility] Comment on above: Performed By: #### C BC, BMP ####[place] [id number] eGFR- Amer. >60 Normal >60 [facility] Comment on above: Performed By: #### C BC, BMP ####[place] [id number] GFR/1.73 sq M predicted among non-blacks MDRD vol rate/area (S/P/Bld) mL/min/{1.73_m2} Normal >60 [facility] Comment on above: Performed By: #### C BC, BMP ####[place] [id number] Glucose mass conc 152 mg/dL High 74-99 [facility] Comment on above: Performed By: #### C BC, BMP ####[place] [id number] Potassium molar conc 4.0 mmol/L Normal 3.7-5.1 [facility] Comment on above: Performed By: #### C BC, BMP ####[place] [id number] Sodium molar conc 138 mmol/L Normal 136-144 [facility] Comment on above: Performed By: #### C BC, BMP ####[place] [id number] Urea nitrogen mass conc 16 mg/dL Normal 7-21 [facility] Comment on above: Performed By: #### C BC, BMP ####[place] [id number] CASE MANAGEMon 04-01-2018 CASE MANAGEM HNO ID: [id number] Author: Tracie JulianRn) MALORIE Hancock Service: Care Management Author Type: Registered Nurse Type: Care Mgt Progress Note Filed: 04/01/2018 10:03 AM Note Text: MULTIDISCIPLINARY ROUNDS SERVICE DATE: 04/01/2018 ADMISSION DATE: 03/31/2018 SERVICE TIME: 10:02 AM ANTICIPATED D/C DATE: 04-03-18 Problem List: ACTIVE PROBLEM LIST Spinal Stenosis, Unspecified Region Other Than Cervical Mixed Hyperlipidemia Obesity, Unspecified 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), Idiopathic Primary Osteoarthritis of Both Knees Obesity, Class III, BMI >= 40 E66.01 Arthritis of Both Knees Oa (Osteoarthritis) of Knee Attendees Present at Rounds: Strap Cutter: Nurse Recreational Director/Demand Planner Nurse Recreational Director: Patient: Minal Caputo Pharmacy: Physical Therapy: Provider: Staff Nurse: Needs Discussed on Rounds: Mobility Pain Plan of Care Anticipated Discharge Disposition: home vs rehab TBD Last Vitals: BP 152/79 Pulse 84 Temp (Src) 99.3 (Oral) Resp 18 SpO2 96% LMP 08/26/2006 s/p ARTHROPLASTY REPLACE JOINT TOTAL KNEE BILATERAL (Bilateral) on 03-31-18 Nursing: Risk for Infection Intervention(s) Plan: Assess and Administer Medications;Assess Vital Signs;Assess Signs/Symptom of Infection;Maintain Hand Hygiene;Monitor Labs and Cultures;Provide Urinary Catheter Care Risk for Infection Goals/Outcomes: Patient Without Signs/Symptoms of Infections Risk For Infection Goal Target Achievement Date: 04/01/18 Knowledge Deficit Intervention(s) Plan: Encourage Verbalization of Questions and Concerns Knowledge Deficit Goals/Outcomes: Participate in Learning Process Knowledge Deficit Goal Target Achievement Date: 04/01/18 Mobility Goal Target Achievement Date: 04/01/18 Pain Intervention(s) Plan: Pain Assessment, Management, Reassessment Per Scoring Tool;Provide Quiet and Restful Environment;Review Current Medication and Medication History and Administer Medications as Ordered;Utilize Pain Modalities;Utilize Leisure Activities Pain Goals/Outcomes: Decrease in Pain Level per Scoring Tool;Patient Verbalizes Acceptable Level of Comfort and is Able to Carry Out Activities of Daily Living Pain Goal Target Achievement Date: 04/01/18 DOCUMENTED BY: Tracie Hancock RN PATIENT NAME: Minal Caputo DATE: April 01, 2018 TIME: 10:02 AM CSN: [id number] [facility] CASE MGT INIT [facility] 2017 CASE MGT INHELADIO MCCRACKEN HNO ID: [id number] Author: Tracie (Rn) MALORIE Hancock Service: Care Management Author Type: Registered Nurse Type: Care Mgt Initial Assessment Filed: 04/01/2018 10:12 AM Note Text: CARE MANAGEMENT: ASSESSMENT AND DISCHARGE PLAN SERVICE DATE: 04/01/2018 SERVICE TIME: 10:05 am PRIMARY CARE PHYSICIAN: Rita Amanda MD ADMISSION STATUS: Inpatient Needs Prior to Discharge: OT/PT Evaluation;Other: See Comment (home vs rehab TBD) 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 No Advance Directive: Current Advance Directive: None Health Literacy: 1. How often do you need to have someone help you when you read instructions, pamphlets, or other written material from your doctor or pharmacy? Never - 1 2. How confident are you filling out medical forms by yourself? Extremely - 1 If Patient scores > 3 on either question, the following interventions were put into place: Patient did not score > 3 FUNCTIONAL AND COGNITIVE/BEHAVIORAL PRIOR TO ADMISSION: Baseline Mental Status: Alert AND Oriented, Person, Place , Time and Situation Functional Status: Independent Does Patient Currently Receive Any Community Services or Home Care? None Equipment Prior to Admission: None Does have a wheeled walker to use at home Has the Patient Been in a Penitentiary Facility in the Past 30 days? No SOCIAL: Living Arrangement: Home Lives With: Alone Financial Resources: N/A Primary Contact: Extended Emergency Contact Information Primary Emergency Contact: Ivory Stokes Relation: Sister Supportive: Yes Other Important Patient Contacts: None Caregiver Assessment: Caregiver is ready, willing and able to meet the patient's needs as recommended by the inter-professional team? Yes Patient's transition needs and plan for meeting these needs: PT / OT evals Does the patient have an acute stroke diagnosis, or has the patient had a stroke during this admission? No Medication Adherence: I am convinced of the importance of my prescription medication: Agree completely - 0 I worry that my prescription medication will do more harm than good to me Disagree completely - 0 I feel financially burdened by my [id number]-nhhtwk expenses for my prescription medication: Disagree completely - 0 Patient is categorized as low risk < 2 Are you interested in bedside delivery of your medications? Yes if goes home Food Concerns: In the Last Month, Have You had Trouble Getting Food? No trouble getting food During the Last Month, Have You Worried Whether Your Food Would Run Out Before You Had Enough Money to Buy More? No Is the Patient Psychosocially Complex? No ASSESSMENT AND PLAN: Medical Needs: None Psychosocial Needs: None FREEDOM OF CHOICE EXPLAINED: Yes Minal Caputo Financial Disclosure Provided POTENTIAL TRANSITION PLANS Home Care Penitentiary Facility/Intermediate Care Facility To Be Determined Care Management Department will continue to follow. SIGNATURE: Tracie Hancock RN PATIENT NAME: Minal Caputo DATE: April 01, 2018 TIME: 10:05 AM PAGER/CONTACT #: [phone] [facility] CBCon 04-01-2018 Erythrocyte distribution width Ratio (RBC) 14.0 % Normal 11.5-15.0 [facility] Comment on above: Performed By: #### C BC, BMP ####[place] [id number] Hematocrit Volume Fraction (Bld) 34.0 % Low 36.0-46.0 [facility] Comment on above: Performed By: #### C BC, BMP ####[place] [id number] Hemoglobin mass conc (Bld) 11.1 g/dL Low 11.5-15.5 [facility] Comment on above: Performed By: #### C BC, BMP ####[address] MCH Entitic mass (RBC) 30.4 pG Normal 26.0-34.0 [facility] Comment on above: Performed By: #### C BC, BMP ####[address] MCHC mass conc (RBC) 32.6 g/dL Normal 30.5-36.0 [facility] Comment on above: Performed By: #### C BC, BMP ####[address] MCV Entitic volume (RBC) 93.2 fL Normal 80.0-100.0 [facility] Comment on above: Performed By: #### C BC, BMP ####[address] Platelet mean volume Entitic volume (Bld) 10.9 fL Normal 9.0-12.7 [facility] Comment on above: Performed By: #### C BC, BMP ####[address] Platelets #/vol (Bld) 290 10*3/uL Normal 150-400 [facility] Comment on above: Performed By: #### C BC, BMP ####[address] RBC #/vol (Bld) 3.65 10*6/uL Low 3.90-5.20 [facility] Comment on above: Performed By: #### C BC, BMP ####[address] WBC #/vol (Bld) 15.94 10*3/uL High 3.70-11.00 [facility] Comment on above: Performed By: #### C BC, BMP ####[address] CONSULTon 04-01-2018 CONSULT HNO ID: [id number] Author: Ady Aragon Service: General Internal Medicine Author Type: Physician Type: Consults Filed: 04/01/2018 8:57 AM Note Text: CONSULT: MEDICAL SERVICE SERVICE DATE: 04/01/2018 SERVICE TIME: 8:53 AM REASON FOR CONSULT: post op medical care REQUESTING PHYSICIAN: Uriel PRIMARY CARE PHYSICIAN: Rita Amanda MD Subjective Ms. Caputo is a 62 year old female who presents for bilateral TKA. I was asked to see the pt for post op medical care. Pt seen and chart reviewed. At this time, the pt reports post op pain. She has a past hx of HTn, hyperlipidemia. Currently she denies SOB. No chest pain. FUNCTIONAL STATUS: Independent PAST MEDICAL HISTORY Diagnosis Date - GERD (gastroesophageal reflux disease) - Hiatal hernia - HLD (hyperlipidemia) - HTN (hypertension) - Obesity, unspecified - Other and unspecified hyperlipidemia - Scoliosis - Spinal stenosis, unspecified region other than cervical PAST SURGICAL HISTORY Procedure Laterality Date - , CLASSIC, IN-HOSP CARE 1980 - [facility] AFTER DELIVERY - PAST SURGICAL HISTORY OF 1986 spinal instrumentation (Valadez rods) - PAST SURGICAL HISTORY OF 2006 lumbar laminectomy FAMILY HISTORY Problem Relation Age of Onset - Cancer Father prostate - Heart Father chf - Lipids Father - Lipids Mother - Hypertension Father Social History Substance Use Topics - Smoking status: Never Smoker - Smokeless tobacco: Never Used - Alcohol use Yes Comment: socially- couple times per year Prescriptions Prior to Admission: diclofenac, EC, (VOLTAREN) 75 mg EC tablet Disp: Rfl: 03/30/2018 at 1500 furosemide (LASIX) 40 mg tablet Disp: Rfl: 03/30/2018 at 1500 MULTIVITAMIN ORAL Take by mouth. Disp: Rfl: 03/30/2018 at 0800 potassium chloride (K-TAB) 10 mEq tablet Take 10 mEq by mouth twice daily. Disp: Rfl: 03/30/2018 at 0800 atorvastatin calcium(LIPITOR 20 MG TAB) Take one(1) tablet daily. Disp: 0 Rfl: 0 03/29/2018 at 2200 METOPROLOL 100 MG TAB Take one(1) tablet daily. Disp: 0 Rfl: 0 03/31/2018 at 1115 Current hospital medications: lidocaine 10 mg/mL (1 %) 1-2 mg injection (XYLOCAINE) 0.1-0.2 mL INTRADERMAL PRN lactated ringers infusion 5-30 mL/hr INTRAVENOUS CONTINUOUS atorvastatin 20 mg tab(s) (LIPITOR) 20 mg ORAL DAILY metoprolol tartrate (short acting) 50 mg tab(s) (LOPRESSOR) 50 mg ORAL q 12 H furosemide 40 mg tab(s) (LASIX) 40 mg ORAL DAILY potassium chloride ER 10 mEq tab(s) (K-DUR, KLOR-CON) 10 mEq ORAL BID NaCl 0.9% iv infusion 100 mL/hr INTRAVENOUS CONTINUOUS 0.9% NaCl 2-10 mL 2-10 mL INTRAVENOUS q 12 H morphine 2 mg injection 2 mg INTRAVENOUS q 2 H PRN oxyCODONE IR 5-10 mg tab(s) (ROXICODONE) 5-10 mg ORAL q 3 H PRN acetaminophen 1,000 mg tab(s) (TYLENOL) 1,000 mg ORAL q 8 H ondansetron 4 mg tab(s) (ZOFRAN) 4 mg ORAL q 6 H PRN ondansetron (PF) 4 mg injection (ZOFRAN) 4 mg INTRAVENOUS q 6 H PRN metoclopramide HCl 10 mg injection (REGLAN) 10 mg INTRAVENOUS q 6 H PRN magnesium hydroxide 400 mg/5 mL 30 mL (MOM) 30 mL ORAL DAILY PRN [START ON 04/02/2018] bisacodyl EC 10 mg tab(s) (DULCOLAX) 10 mg ORAL DAILY aluminum-magnesium hydroxide-simethicone 200-200-20 mg/5 mL 30 mL (MAALOX,MYLANTA,MAG-AL PLUS) 30 mL ORAL q 2 H PRN ascorbic acid (vitamin C) 500 mg tab(s) (VITAMIN C) 500 mg ORAL BID w MEALS docusate sodium 100 mg cap(s) (COLACE) 100 mg ORAL BID aspirin, enteric coated 81 mg tab(s) (ASPIRIN, ENTERIC COATED) 81 mg ORAL BID Allergies As of Date: 02/24/2018 Allergen Noted Reaction ADHESIVE BANDAGES [OTHER] 05/06/2007 Rash PENICILLINS 03/08/2007 Unknown SULFA (SULFONAMIDE ANTIBIOTICS) 03/08/2007 Fully Assessed 02/24/2018 COMPLETE REVIEW OF SYSTEMS: GENERAL: no recent illness RESPIRATORY: denies SOB CARDIOVASCULAR: no chest pain GI: No nausea, vomiting, or diarrhea : Daniel in place MUSCULOSKELETAL: positive for arthritis Objective PHYSICAL EXAM: Physical Exam Performed: GENERAL: Alert, no distress, cooperative HEAD/SINUSES: No significant findings OROPHARYNX: MM slt dry LUNGS: clear CARDIAC: Rhythm: regular rate and rhythm ABDOMEN: Soft, nontender BP 152/79 Pulse 84 Temp (Src) 99.3 (Oral) Resp 18 SpO2 96% LMP 08/26/2006 DATA: Diagnostic tests reviewed for today's visit: Most recent labs CBC with diff: WBC 15.94 04/01/2018 RBC 3.65 04/01/2018 Hemoglobin 11.1 04/01/2018 Hematocrit 34.0 04/01/2018 MCV 93.2 04/01/2018 MCH 30.4 04/01/2018 MCHC 32.6 04/01/2018 RDW-CV 14.0 04/01/2018 Platelet Count 290 04/01/2018 MPV 10.9 04/01/2018 Neut% 55.6 03/19/2018 Lymph% 31.7 03/19/2018 [place]% 6.4 03/19/2018 Eosin% 5.5 03/19/2018 Baso% 0.8 03/19/2018 Abs Neut (ANC) 4.39 03/19/2018 Abs [place] 0.51 03/19/2018 Abs Eosin 0.44 03/19/2018 Abs Baso 0.06 03/19/2018 Glucose (mg/dL) Date Value 04/01/2018 152 Potassium (mmol/L) Date Value 04/01/2018 4.0 Sodium (mmol/L) Date Value 04/01/2018 138 Chloride (mmol/L) Date Value 04/01/2018 102 CO2 (mmol/L) Date Value 04/01/2018 24 Creatinine (mg/dL) Date Value 04/01/2018 0.86 BUN (mg/dL) Date Value 04/01/2018 16 Anion Gap (mmol/L) Date Value 04/01/2018 12 Calcium (mg/dL) Date Value 04/01/2018 8.3 Impression/Recommendations Principal Problem: Arthritis of both knees POA: Unknown Assessment AND Plan: POD #1 Hx of HTN. Will monitor BP. Plan to continue Metoprolol. Hyperlipidemia. Will continue Statin. ASA for DVT prophylaxis. Will follow. Thanks. SIGNATURE: Ady Aragon MD PATIENT NAME: Minal Caputo DATE: April 01, 2018 TIME: 8:53 AM PAGER: [phone] [facility] NURSING PROGon 04-01-2018 Protein mass conc HNO ID: [id number] Author: Pat Newman (Acn) RN Service: (none) Author Type: Advance Clinical Nurse Type: Nursing Progress Note Filed: 04/01/2018 3:43 PM Note Text: Nursing Progress Note Patient Name: Minal Caputo Patient Location: /[id number] Daily Note: Reviewed isometric and incentive spirometry exercises, and she needs to be working on them every few hours throughout the day. Reviewed goals with the patient about getting up in chair today. Patient educated that her outcome will be based on her level of following through with the exercises to get a good outcome with the surgery. Patient also told the amount of time at rehab is also dependent on how well she does. Patient told also that the hospital does not pay for transportation to rehab. She will need to be able to go to in a car or that If not she will need to pay for transportation.patient aware she will go to rehab once the precert from the insurance comes through. Patient states she understands the plan of care. This note was completed by: Pat Newman RN [facility] Protein mass conc HNO ID: [id number] Author: Romana (Rn) MALORIE Goldman Service: (none) Author Type: Registered Nurse Type: Nursing Progress Note Filed: 03/31/2018 10:37 PM Note Text: Nursing Progress Note Patient Name: Minal Caputo Patient Location: [id number] Daily Note:2045 pt drowsy, pt VSS at this time. Pt placed on continuous pulse ox in room, on 3L/O2 at 97% NC. Pt has strong and equal p/p, no N/T, no N/V, with good sensation and pulse. Call light within reach. This note was completed by: Romana Goldman, RN [facility] PROGRESSon 04-01-2018 Protein mass conc HNO ID: [id number] Author: Jennifer Calvo ([facility]-) David Service: Hospital Medicine Author Type: Nurse Practitioner Type: Progress Notes Filed: 04/01/2018 5:11 PM Note Text: s/p BTKR. POD#1 -pain uncontrolled, added flexeril for pain control -multicare team rounds done in am -reeval daily for home vs rehab Isolated elevated WBC -cont mobilize AND IS Anemia, acute blood loss -stable/asymp PAST MEDICAL HISTORY Diagnosis Date - GERD (gastroesophageal reflux disease) - Hiatal hernia - HLD (hyperlipidemia) - HTN (hypertension) - Obesity, unspecified - Other and unspecified hyperlipidemia - Scoliosis - Spinal stenosis, unspecified region other than cervical BP 143/52 Pulse 79 Temp 37 ?C (98.6 ?F) (Oral) Resp 18 LMP 08/26/2006 (Approximate) SpO2 96% WBC (k/uL) Date Value 04/01/2018 15.94 (H) RBC (m/uL) Date Value 04/01/2018 3.65 (L) Hemoglobin (g/dL) Date Value 04/01/2018 11.1 (L) Hematocrit (%) Date Value 04/01/2018 34.0 (L) MCV (fL) Date Value 04/01/2018 93.2 MCH (pG) Date Value 04/01/2018 30.4 MCHC (g/dL) Date Value 04/01/2018 32.6 RDW-CV (%) Date Value 04/01/2018 14.0 Platelet Count (k/uL) Date Value 04/01/2018 290 MPV (fL) Date Value 04/01/2018 10.9 Glucose (mg/dL) Date Value 04/01/2018 152 (H) BUN (mg/dL) Date Value 04/01/2018 16 Creatinine (mg/dL) Date Value 04/01/2018 0.86 Sodium (mmol/L) Date Value 04/01/2018 138 Potassium (mmol/L) Date Value 04/01/2018 4.0 Chloride (mmol/L) Date Value 04/01/2018 102 CO2 (mmol/L) Date Value 04/01/2018 24 Protein, Total (g/dL) Date Value 03/19/2018 6.8 Albumin (g/dL) Date Value 03/19/2018 4.2 Calcium (mg/dL) Date Value 04/01/2018 8.3 (L) Alkaline Phosphatase (U/L) Date Value 03/19/2018 107 Bilirubin, Total (mg/dL) Date Value 03/19/2018 0.5 AST (U/L) Date Value 03/19/2018 27 ALT (U/L) Date Value 03/19/2018 38 I spent 15 minutes in the visit, with more than 50% of the total nyeq-ne-oerx time of the visit in counseling / coordination of care. [facility] Protein mass conc HNO ID: [id number] Author: Elaine Alcala Service: Orthopaedic Surgery Author Type: Resident Type: Progress Notes Filed: 04/01/2018 12:21 PM Note Text: ORTHOPAEDIC SURGERY PROGRESS NOTE April 01, 2018 12:21 PM Procedure: Procedure(s) and Anesthesia Type: * ARTHROPLASTY REPLACE JOINT TOTAL KNEE BILATERAL - General (Date: 03/31/2018) Subjective: Pain controlled, no nausea/vomiting, no chest pain, no shortness of breath. Vitals: BP (!) 149/47 Pulse 80 Temp 36.6 ?C (97.9 ?F) (Tympanic) Resp 18 LMP 08/26/2006 (Approximate) SpO2 97% Intake/Output Summary (Last 24 hours) at 04/01/18 1221 Last data filed at 04/01/18 1100 Gross per 24 hour Intake 4870 ml Output 965 ml Net 3905 ml Physical Examination: General: alert/oriented x3, in no apparent distress Lower Ext: LLE: 5/5 ankle plantar/dorsiflex/EHL RLE: 5/5 ankle plantar/dorsiflex/EHL SILT saphenous, sural, DP, SP, plantar Palp DP; <2sec CR Lab: CBC, Coags, BMP, Mg, Phos Recent Labs 04/01/18 0450 WBC 15.94* HB 11.1* HCT 34.0* PLT 290 NA 138 K 4.0 CHLOR 102 CO2 24 BUN 16 CREAT 0.86 GLUC 152* CA 8.3* Impression/Plan: POD 1 s/p bilateral TKA - Physical Therapy: wbat - Diet: reg - Pain control: po - Dressing management: maintain - Daniel: n/a - DVT prophylaxis: IPCD and asa - Antibiotic: Periop - Case management for discharge planning - Disposition: Home tomorrow. Elaine Alcala MD Resident, Orthopaedic Surgery [id number] 04/01/2018 12:21 PM Please page [phone]) from 5p-6a and on weekends for any issues. [facility] THERAPY NTon 04-01-2018 THERAPY NT HNO ID: [id number] Author: Elsa (Pt) Bradford Service: Physical Therapy Author Type: Physical Therapist Type: Therapy (PT/OT/Speech/Resp) Filed: 04/01/2018 4:00 PM Note Text: Physical Therapy Evaluation SERVICE DATE: 04/01/2018 SERVICE TIME: 1358 to 1501 ROOM: [id number] Recommended Discharge Disposition: Subacute/SNF Justification For Post Acute Needs: Anticipate that patient will require daily (5x/wk) skilled therapy in a post-acute facility setting at the time of acute hospital discharge;Willing to participate;Living the community premorbidly Recommended Discharge Equipment: No equipment needs anticipated PT Recommendations to Nursing: Ambulate with device;To bathroom;In halls;OOB for Meals;With assist of 1 person Device: Wheeled Walker PT 6 Clicks Score: 12 Precautions/Activity Restrictions: Total Knee Replacement;Weight Bearing Restrictions;Lines/Tubes/D rains Extremity With Weight Bearing Restricted: Left Lower Extremity;Right Lower Extremity Left Lower Extremity Weight Bearing Status: WBAT Right Lower Extremity Weight Bearing Status: WBAT ASSESSMENT :Pt presents with impaired tolerance to activity functional mobility and B knee strength/ROM following B TKR. Pt requires skilled PT for postop TKR education, exercises and progression of mobility. Pt required much encouragement and education to participate. Pt with FOB in flexion on arrival. Educated on importance of knee extension while in bed. Pt became tearful and reports she needs her knees flexed to reduce low back pain. Educated on nonpharm pain control technique and frequent repositioning. Towel placed behind back while in bed with HOB elevated approx 80*. Nurse notified of pt complaints. Pt required Max/Mod A of 2 persons for mobility. Much encouragement and increased time to complete sit to stand. Vcs for effective use of UE on walker for support and posture. Pt would benefit from continued PT at SNF level to progress HEP and independent mobility to facilitate safe return home. Patient Disposition at Start of Session: Supine in Bed Patient Disposition at End of Session: Supine in Bed;Call Myers in Reach Tolerance Limited By Pain Physical Therapy Problem List: Pain;Safety Deficits;Impaired Self Care;Decreased Activity Tolerance;Decreased Range Of Motion;Decreased Strength;Balance Impaired;Functional Mobility Impairment Patient /Caregiver Goals: Go To Rehab Goals for Plan of Care: Able to perform HEP with: Set Up Rolling with: Minimal Assistance Transfer supine to/from sit with: Minimal Assistance Transfer sit to/from stand with: Minimal Assistance Ambulate with: Contact Guard Assistance Distance: 50 feet Device: Wheeled Walker Rehab Potential: Good PLAN: Treatment Frequency (times per week): 7 Current admission Treatment Interventions: Education;Self Care / Home Management;Energy Conservation Training;Joint Mobility;Strengthening;Fun ctional Mobility Training;Balance Training Plan of Care developed with: Patient TREATMENT INTERVENTIONS: Therapy Diagnosis: Reduced mobility-other Interventions Provided: Evaluation;Therapeutic Exercise (25163);Therapeutic Activity (73637);Gait Training (05652) $ Evaluation-Low (07557) Billed Units: 1 unit Therapeutic Exercise (39203) Treatment Minutes: 20 1 unit Skilled Intervention(s): Instruction in therapeutic exercise supine TKR exercises Verbal and tactile cuing provided . Education in HEp and TKR booklet Therapeutic Activity (23014) Treatment Minutes: 10 1 unit Skilled Intervention(s): Instructed patient in supine to sit pushing with upper extremities to sit up Instructed patient in sit to supine using safe, effective technique Education with POC, precuations, nonpharm pain control techniques Gait Training (31280) Treatment Minutes: 10 1 unit Skilled Intervention(s): Instruction in sit to stand technique with proper hand placement and body positioning at edge of bed/chair, Instruction in stand to sit technique with LE's touching chair/bed and reaching back for surface, Instruction in sequencing, gait pattern, Instruction in correction of gait deviations, Instruction in use of equipment, cues for sequence and pattern and posture, balance, safety, equipment, benefits of mobility/repositioning and use of call light for staff assist as tolerated Total Timed Code Treatment Minutes: 40 Total Treatment Time (minutes): 63 FUNCTIONAL G CODE: PT 6 Clicks Score: 12 (04/01/18 9370) $ Mobility: Walking and Moving Around Current Status (G8978): CL (04/01/18 1358) $ Mobility: Walking and Moving Around Goal Status (G8979): CK (04/01/18 5141) Based on clinical assessment and the score on the 6 Clicks Functional Assessment Tool, the G code and corresponding severity modifiers are documented above. Physician signature certifies treatment plan of care established above for the period of 04/01/2018 through 04/15/2018. SUBJECTIVE: Current Hospital Course: Chart reviewed; 62 y.o female admitted 03/31/18 s/p B TKR Reason for Physical Therapy Consult : s/p B TKR Relevant Past Medical History: OA, HLD, HTN, obesity, lumbar stenosis, scoliosis s/p valadez rods 1986 Patient Report: I need to have something under my knees to help with my back pain What are you going to do about my back pain? Home Environment Patient Lives With: Self/Alone Assistance Available: None Entry To Home: Stairs;With Rail Number Of Stairs Into Home: 3 Number Of Stairs To Bed/Bath: 0 Tub/Shower Type: walk in shower Laundry: on main floor Equipment Owned: Commode-Raised;Wheeled Walker;Shower Chair;Grab Bars-Shower;Hand Held Shower Prior Functional Level: Within Functional Limits (ambulated with crutches for community distances) OBJECTIVE: CURRENT FUNCTIONAL STATUS: Current Functional Mobility Assist Level Additional Information Rolling Supine to Sit Maximal Assistance (increased time required with HOB elevated 80*) Sit to Supine Moderate Assistance (assist with B LE) Scooting Minimal Assistance (to scoot to EOb in sitting. increased time/effort required) Sit to Stand Maximal Assistance (x 2 persons. increased time and encouragement to complete) Stand to Sit Minimal Assistance (VCs for safe technique) Bed to Chair Toilet/Commode Gait Minimal Assistance (x 2 persons) Gait Device: Wheeled Walker Gait Distance (feet): 2 feet x 1 Stairs Curb Step Car Transfer Gait Deviations Right Lower Extremity: Weight bearing decreased;Stance time decreased;Step length decreased;Knee flexion during stance increased Gait Deviations Left Lower Extremity: Weight bearing decreased;Stance time decreased;Knee flexion during stance increased;Step length decreased General Gait Deviations: Za decreased;Flexed trunk posture;Shuffling Gait;Non-functional gait speed;Wide base of support Please see discipline specific clinical documentation flowsheet for complete details for this therapy evaluation/treatment. SIGNATURE: Elsa Felder PT PATIENT NAME: Minal Caputo DATE: April 01, 2018 TIME: 3:47 PM Physician signature certifies treatment plan of care established above for the period of 04/01/2018 through 04/15/2018. [facility] THERAPY NT HNO ID: [id number] Author: Zacarias JulianOt/L) Nasim Service: Occupational Therapy Author Type: Occupational Therapist Type: Therapy (PT/OT/Speech/Resp) Filed: 04/01/2018 1:22 PM Note Text: Occupational Therapy Evaluation SERVICE DATE: 04/01/2018 SERVICE TIME: 1125 to 1202 ROOM: [place] [address] Recommended Discharge Disposition: Subacute/SNF Justification For Post Acute Needs: Living the community premorbidly;Willing to participate;Motivated;May not tolerate higher intensity programing;Anticipate that patient will require daily (5x/wk) skilled therapy in a post-acute facility setting at the time of acute hospital discharge Recommended Discharge Equipment: To Be Determined OT Recommendations to Nursing: Encourage patient participation with in-bed ADL?s;Edge of bed ADL?s;With assist of 1 person Equipment: Wheeled Walker OT 6 Clicks Score: 17 Precautions/Activity Restrictions: Total Knee Replacement;Weight Bearing Restrictions;Lines/Tubes/D rains Extremity With Weight Bearing Restricted: Left Lower Extremity;Right Lower Extremity Left Lower Extremity Weight Bearing Status: WBAT Right Lower Extremity Weight Bearing Status: WBAT ASSESSMENT: Patient presents with decreased dynamic sitting balance, decreased activity tolerance, and decreased safety awareness impacting ability to complete ADLs and functional mobility tasks. Patient will benefit from additional skilled OT intervention in the SNF setting to maximize her independence with self-care and functional transfers. At this time, it is likely patient will require wheelchair ambulette for transition to SNF setting. Patient Disposition at Start of Session: Supine in Bed;Call Myers in Reach;SCDs Patient Disposition at End of Session: Supine in Bed;Call Myers in Reach;SCDs Tolerated Full Session Occupational Therapy Problem List: Pain;Education Deficit;Safety Deficits;Impaired Self Care;Decreased Activity Tolerance;Functional Mobility Impairment;Balance Impaired Patient /Caregiver Goals: Go To Rehab Goals for Plan of Care: Lower Body Bathing with: Minimal Assistance Lower Body Dressing with: Minimal Assistance Toilet Hygiene with: Minimal Assistance Toilet Transfer with: Minimal Assistance Demonstrate Competence With Education with: Modified Independent Progress Toward Goals: Progressing as expected Rehab Potential: Good PLAN: Treatment Frequency (times per week): 5 Current admission Treatment Interventions: Education;Self Care / Home Management;Energy Conservation Training;Functional Mobility Training;Balance Training;Pain Management Plan of Care developed with: Patient TREATMENT INTERVENTIONS: Therapy Diagnosis: Reduced mobility-other;Decreased activities of daily living (ADL) Interventions Provided: Evaluation;Self Residential Management (72497) $ Evaluation-Low (69460) Billed Units: 1 unit Self Residential Management (07675) Treatment Minutes: 22 1 unit Skilled Intervention(s): Educated patient on role of OT in acute setting, POC, and discharge plan. Educated patient, via therapist demonstration and handout on walker safety. Facilitated bed mobility tasks including rolling, and scooting. Facilitated patient attempt at sit to stand functional transfer without success this session. Facilitated patient completion of upper and lower body bathing and dressing while adhering to knee post-op precautions. Educated patient on importance of mobility, and it's positive impact on pain reduction in the future. Total Timed Code Treatment Minutes: 22 Total Treatment Time (minutes): 37 FUNCTIONAL G CODE: OT 6 Clicks Score: 17 (04/01/18 1125) Self Care Current Status (G8987): CK (04/01/18 1125) Self Care Goal Status (G8988): CJ (04/01/18 1125) Based on clinical assessment and the score on the 6 Clicks Functional Assessment Tool, the G code and corresponding severity modifiers are documented above. SUBJECTIVE: Current Hospital Course: Chart reviewed; see below Reason for Occupational Therapy Consult: s/p bilateral TKR Relevant Past Medical History: GERD, hiatal hernia, HLD, HTN, scoliosis, spinal stenosis, lumbar laminectomy Patient Report: patient reported in more pain when moving from supine to sit. Home Environment Patient Lives With: Self/Alone Assistance Available: None Entry To Home: Stairs;With Rail Number Of Stairs Into Home: 2 Number Of Stairs To Bed/Bath: 0 Tub/Shower Type: walk in shower Laundry: on main floor Equipment Owned: Commode-Raised;Wheeled Walker;Shower Chair;Grab Bars-Shower;Hand Held Shower Prior Functional Level: Within Functional Limits OBJECTIVE: CURRENT FUNCTIONAL STATUS: Current Activities of Daily Living Assist Level Feeding Independent Grooming Independent Bathing Upper Body Independent Bathing Lower Body Maximal Assistance Dressing Upper Body Modified Independent Dressing Lower Body Maximal Assistance Toileting Total Assistance (daniel) Functional Mobility Assist Level Rolling Minimal Assistance Supine to Sit Moderate Assistance Sit to Supine Maximal Assistance Scooting Contact Guard Assistance Sit to Stand (unable to acheive full stand with assist of 2) Stand to Sit Bed to Chair Toilet/Commode Functional Mobility Balance: Dynamic Sitting Dynamic Sitting Balance: Contact Guard Assistance Please see discipline specific clinical documentation flowsheet for complete details for this therapy evaluation/treatment. SIGNATURE: Teodora Quach/OT PATIENT NAME: Minal Caputo DATE: April 01, 2018 TIME: 12:49 PM I reviewed and agree with the documentation corresponding to this therapy visit. SIGNATURE: Zacarias Rouse OTR/L DATE: April 01, 2018 TIME: 1:22 PM [facility] THERAPY NT HNO ID: [id number] Author: Elsa Felder Service: Physical Therapy Author Type: Physical Therapist Type: Therapy (PT/OT/Speech/Resp) Filed: 04/01/2018 11:59 AM Note Text: PHYSICAL THERAPY MISSED VISIT SERVICE DATE: 04/01/2018 SERVICE TIME: 1145 to 1145 ROOM: [place] [address] Attempted Evaluation. Patient not seen due to Another service at bedside. OT bedside SIGNATURE: Elsa Felder, PT PATIENT NAME: Minal Caputo DATE: April 01, 2018 TIME: 11:58 AM [facility] ANES Angel 03-31-2018 ANES POST HNO ID: [id number] Author: Day Walker Service: Anesthesiology Author Type: Anesthesiologist Type: Anesthesia PostOp Filed: 03/31/2018 5:16 PM Note Text: POST ANESTHESIA EVALUATION NOTE SERVICE DATE: 03/31/2018 SERVICE TIME: 5:16 PM : 1955 Vitals: 03/31/18 1031 03/31/18 1651 Temp: 37.1 ?C (98.8 ?F) 37 ?C (98.6 ?F) 03/31/18 1250 03/31/18 1255 03/31/18 1651 03/31/18 1700 BP: 126/84 82/60 150/99 158/108 03/31/18 1250 03/31/18 1255 03/31/18 1651 03/31/18 1700 Pulse: 62 62 70 69 03/31/18 1250 03/31/18 1255 03/31/18 1651 03/31/18 1700 Resp: 16 16 16 16 03/31/18 1250 03/31/18 1255 03/31/18 1651 03/31/18 1700 SpO2: 98% 98% 100% 100% Validated Vital Signs: Yes POST ANES STATUS: No apparent anesthetic complications. The patient is appropriately hydrated with stable respiratory and cardiovascular status. Patient has safe and adequate airway control. The patient has appropriate pain relief and no significant post operative nausea or vomiting. The patient has achieved baseline mental status. Further assessment by Anesthesia Service: None Other Remarks: SIGNATURE: Day Walker MD PATIENT NAME: Minal Caputo DATE: March 31, 2018 TIME: 5:16 PM PAGER/CONTACT #: [facility] ANES PREOPon 03-31-2018 ANES PREOP HNO ID: [id number] Author: Skye An Service: Anesthesiology Author Type: Anesthesiologist Type: Anesthesia PreOp Filed: 03/31/2018 12:10 PM Note Text: ANESTHESIOLOGY DAY OF SURGERY NOTE SERVICE DATE: 03/31/2018 SERVICE TIME: 12:06 : 1955 Procedure(s) (LRB): ARTHROPLASTY REPLACE JOINT TOTAL KNEE BILATERAL (Bilateral) Surgeon(s): Donte Moffett Estimated body mass index is 47.17 kg/m? as calculated from the following: Height as of 03/19/18: 160 cm (5' 3 ). Weight as of 03/27/18: 120.8 kg (266 lb 4.8 oz). 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), Idiopathic Primary Osteoarthritis of Both Knees Obesity, Class III, BMI >= 40 E66.01 Arthritis of Both Knees Oa (Osteoarthritis) of Knee PAST MEDICAL HISTORY Diagnosis Date - GERD (gastroesophageal reflux disease) - Hiatal hernia - HLD (hyperlipidemia) - HTN (hypertension) - Obesity, unspecified - Other and unspecified hyperlipidemia - Scoliosis - Spinal stenosis, unspecified region other than cervical PAST SURGICAL HISTORY Procedure Laterality Date - , CLASSIC, IN-HOSP CARE 1980 - [facility] AFTER DELIVERY - PAST SURGICAL HISTORY OF 1986 spinal instrumentation (Valadez rods) - PAST SURGICAL HISTORY OF 2006 lumbar laminectomy FAMILY HISTORY Problem Relation Age of Onset - Cancer Father prostate - Heart Father chf - Lipids Father - Lipids Mother - Hypertension Father Social History: Social History Substance Use Topics - Smoking status: Never Smoker - Smokeless tobacco: Never Used - Alcohol use Yes Comment: socially- couple times per year No current facility-administered medications on file prior to encounter. Current Outpatient Prescriptions on File Prior to Encounter: MULTIVITAMIN ORAL Take by mouth. potassium chloride (K-TAB) 10 mEq tablet Take 10 mEq by mouth twice daily. atorvastatin calcium(LIPITOR 20 MG TAB) Take one(1) tablet daily. METOPROLOL 100 MG TAB Take one(1) tablet daily. Current Facility-Administered Medications: lidocaine 10 mg/mL (1 %) 1-2 mg injection (XYLOCAINE) 0.1-0.2 mL INTRADERMAL PRN Donte L [place] lactated ringers infusion 5-30 mL/hr INTRAVENOUS CONTINUOUS Donte L Uriel Last Rate: 30 mL/hr at 03/31/18 1150 30 mL/hr at 03/31/18 1150 celecoxib 200 mg cap(s) (CeleBREX) 200 mg ORAL Pre-Op Once Donte L [place] ceFAZolin 3 g in D5W 100 mL (ANCEF) 3 g INTRAVENOUS ONCE Donte L [place] Allergies: ALLERGIES Allergen Reactions - Adhesive Bandages [* Rash ADHESIVE BANDAGES.. RASH - Sulfa (Sulfonamide * DOS EXAM: Adequate NPO Status: Yes Anesthetic Risks, Benefits, Alternatives, Personnel and Consent Discussed: Yes Patient agrees to proceed: Yes Previous Anesthesia: No history of adverse event Airway Assessment: MP 3; Neck ROM: Full ROM without neurologic symptoms; Airway Evaluation: No significant abnormalities Symptoms of Sleep Apnea: None Dentition: Teeth intact Additional Physical Exam: Lungs: Patient health status unchanged since recent history and physical. See history and physical for exam findings. Cardiac: Patient health status unchanged since recent history and physical. See history and physical for exam findings. Additional Pertinent Findings: N/A Blood Products: Will accept Blood/Blood Products Anesthetic Plan: spinal vs general Anesthetic Monitoring: Standard ASA Monitors Pain Management Plan: Parenteral or Oral and Peripheral Nerve Block ASA Class: 3 Other Medical Problems: None Chronic Beta Rajan medication administered within 24 hours: yes I have interviewed and examined the patient. I have reviewed the medical record and/or the pre-anesthesia evaluation, pertinent labs, and test results. Significant changes in the patient's condition since the History and Physical, not otherwise documented in primary service progress notes: No This contains updated information obtained within 48 hours of Surgery/Procedure. SIGNATURE: Skye An MD PATIENT NAME: Minal Caputo DATE: March 31, 2018 TIME: 12:06 PM CSN: [id number] [facility] BRIEF OP NOTon 03-31-2018 BRIEF OP NOT HNO ID: [id number] Author: Donte Moffett Service: Orthopaedic Surgery Author Type: Physician Type: Brief Op Note Filed: 03/31/2018 4:59 PM Note Text: BRIEF OP NOTE LOG ID: [id number] Surgery/Procedure Date: 03/31/2018 Incision/Procedure Start Time: 1:54 PM Incision Close/Procedure End Time: 4:40 PM Surgeon(s)/Proceduralist(s ) and Demand Planner(s): Surgeon(s) and Role: * Donte Moffett - Primary * Elaine (Eddie Alcala - Resident - Assisting * Froylan (ResStan Walker - Resident - Assisting Procedure(s): bilateral TKAs Anesthesia: General Findings: DJD Estimated Blood Loss: 100 mls Specimens: None Complications: Fx medial tibial plateau right tibia Pre-Op/Pre-Procedure Diagnosis: As below Post-Op/Post-Procedure Diagnosis: Arthritis of both knees [M17.0] SIGNATURE: Elaine Alcala MD PATIENT NAME: Minal Fentongelacio DATE: March 31, 2018 TIME: 4:50 PM PAGER/CONTACT #: [facility] NURSING PROGon 03-31-2018 Protein mass conc HNO ID: [id number] Author: Amy JulianRn) MALORIE Mcdonnell Service: (none) Author Type: Registered Nurse Type: Nursing Progress Note Filed: 03/31/2018 6:33 PM Note Text: Nursing Progress Note Patient Name: [facility]inal Caputo [facility] Daily Note: Patient with decreased respirations and O2 sat of 70-80%'s. here nasal and oral airways inserted. Narcan given as ordered patient bagged at this time. 1758 Second dose of narcan given as ordered. Patient continues to be bagged by 1802 O2 sat remains 80'-90's third dose of Narcan given as ordered. 1814 More awake moaning Oral airway out per patient Nasal airway remains in place. 1803 O2 sat 90's respirations 10 to 12, fourth dose of Narcan given as ordered. 1830 Family in PACU to see patient and aware of delay in PACU for two hours. Patient shivering warm blankets applied. This note was completed by: Amy Mcdonnell RN [facility] Protein mass conc HNO ID: [id number] Author: Rosa JulianRn) Haroldo, MALORIE Service: Nursing Author Type: Registered Nurse Type: Nursing Progress Note Filed: 03/31/2018 4:54 PM Note Text: Discharge Status: Patient is Awakening, and is extubated. Skin condition was warm. Transported to recovery room via bed with siderails up. Accompanied by cartridge loader and resident. [facility] Protein mass conc HNO ID: [id number] Author: Rosa JulianRn) Haroldo, MALORIE Service: Nursing Author Type: Registered Nurse Type: Nursing Progress Note Filed: 03/31/2018 2:33 PM Note Text: Patient transported to the OR via cart, accompanied by /DR. AN. Level of consciousness: Alert and Oriented x 3 Emotional Status:Calm Sensory Impairments: No Language Barrier: No Mobility Impairments: Yes, BLOCKS IN PLACE Addressed any patient concerns regarding consents, OR environment, and anesthetics. Body temperature maintained by maintaining OR room temperature between 68-72 degrees F, providing patient with warm bath blankets, limiting areas of exposure and providing warm irrigation fluid. [facility] Protein mass conc HNO ID: [id number] Author: Lolis (Rn) MALORIE Jin Service: (none) Author Type: Registered Nurse Type: Nursing Progress Note Filed: 03/31/2018 11:48 AM Note Text: Nursing Progress Note Patient Name: Minal Caputo [facility] Daily Note: Pt aware of procedure. Alert and oriented x 3. Pt states just discomfort in bilateral knees while lying in the bed. 2+ dp/pt pulses to bilateral feet. Adequate push/pulls to bilateral feet. IV tolerated well. IV fluids running. Safety maintained. This note was completed by: Lolis Jin RN [facility] OPERATIVE NOon 03-31-2018 OPERATIVE NO HNO ID: [id number] Author: Donte Moffett Service: Orthopaedic Surgery Author Type: Physician Type: Operative Report Filed: 03/31/2018 5:40 PM Note Text: OPERATIVE/PROCEDURE REPORT LOG ID: [id number] Surgery/Procedure Date: 03/31/2018 Incision/Procedure Start Time: 1:54 PM Incision Close/Procedure End Time: 4:40 PM Surgeon(s)/Proceduralist(s ) and Demand Planner(s): Surgeon(s) and Role: * Donte Moffett - Primary * Elaine (Res) Fredrick - Resident - Assisting * Froylan (Res) Denise - Resident - Assisting Procedure(s): Procedure(s) (LRB): ARTHROPLASTY REPLACE JOINT TOTAL KNEE BILATERAL (Bilateral) Anesthesia: General Findings: The medial compartment was severely eburnated with bone loss on the posterior medial tibia and posterior medial femoral condyles Preop Diagnosis: Pre-Op Diagnosis Codes: * Arthritis of both knees [M17.0] Postop Diagnosis: Pre-Op Diagnosis Codes: * Arthritis of both knees [M17.0] IMPLANTS: Implant Name Type Inv. Item Serial No. Engineering Assistant Lot No. LRB Model Num No. Used CEMENT SIMPLEX P BONE RADIOPAQUE FULL DOSE - [id number] Cement / Putty CEMENT SIMPLEX P BONE RADIOPAQUE FULL DOSE ANTONI [id number] Right [id number] CEMENT SIMPLEX P BONE RADIOPAQUE FULL DOSE - [id number] Cement / Putty CEMENT SIMPLEX P BONE RADIOPAQUE FULL DOSE ANTONI [id number] Left [id number] BASEPLATE TRIATHLON 4 UNIVERSAL COCR TIBIAL TOTAL STABILIZE CEMENTED KNEE - [id number] Plate BASEPLATE TRIATHLON 4 UNIVERSAL COCR TIBIAL TOTAL STABILIZE CEMENTED KNEE STRY/[employer] [id number] Left [id number] 1 COMPONENT TRIATHLON 33MM X3 9MM PATELLAR SYMMETRIC KNEE SUPERIOR - [id number] Joint - Knee COMPONENT TRIATHLON 33MM X3 9MM PATELLAR SYMMETRIC KNEE SUPERIOR STRY/[employer] [id number] Left 2580-L-339 1 COMPONENT TRIATHLON 4 FEMORAL CEMENTED POSTERIOR STABILIZE KNEE LEFT - [id number] Joint COMPONENT TRIATHLON 4 FEMORAL CEMENTED POSTERIOR STABILIZE KNEE LEFT STRY/[employer] [id number] Left [id number] 1 INSERT TRIATHLON 4 X3 11MM TIBIAL BEARING POSTERIOR STABILIZE KNEE - [id number] Joint - Knee INSERT TRIATHLON 4 X3 11MM TIBIAL BEARING POSTERIOR STABILIZE KNEE STRY/[employer] [id number] Left [id number] 1 CEMENT SIMPLEX P BONE RADIOPAQUE FULL DOSE - [id number] Cement / Putty CEMENT SIMPLEX P BONE RADIOPAQUE FULL DOSE ANTONI [id number] Right [id number] 1 COMPONENT TRIATHLON 33MM X3 9MM PATELLAR SYMMETRIC KNEE SUPERIOR - [id number] Joint - Knee COMPONENT TRIATHLON 33MM X3 9MM PATELLAR SYMMETRIC KNEE SUPERIOR STRY/[employer] [id number] Right 8600-L-339 1 BASEPLATE TRIATHLON 4 UNIVERSAL COCR TIBIAL TOTAL STABILIZE CEMENTED KNEE - [id number] Plate BASEPLATE TRIATHLON 4 UNIVERSAL COCR TIBIAL TOTAL STABILIZE CEMENTED KNEE [facility] [id number] Right [id number] 1 COMPONENT TRIATHLON 4 FEMORAL CEMENTED POSTERIOR STABILIZE KNEE RIGHT - [id number] Joint - Knee COMPONENT TRIATHLON 4 FEMORAL CEMENTED POSTERIOR STABILIZE KNEE RIGHT [facility] [id number] Right [id number] 1 STEM TRIATHLON 12MM COCR 50MM FEMORAL CEMENTED TOTAL STABILIZED KNEE - [id number] Joint - Knee STEM TRIATHLON 12MM COCR 50MM FEMORAL CEMENTED TOTAL STABILIZED KNEE [facility] [id number] Right [id number] 1 SCREW LCP 6.5MM 8MM PARTIAL THREAD STAINLESS STEEL 45MM 32MM BONE LARGE - [id number] Screw SCREW LCP 6.5MM 8MM PARTIAL THREAD STAINLESS STEEL 45MM 32MM BONE LARGE SY[employer]ES INC SYNTHES [facility] Right 217.045 1 WASHER LCP 13MM 6.6MM STAINLESS STEEL ORTHOPEDIC 4.5-7.3MM SCREW NONSTERILE - [id number] Screw WASHER LCP 13MM 6.6MM STAINLESS STEEL ORTHOPEDIC 4.5-7.3MM SCREW NONSTERILE [employer] SYNTHES [facility] Right 219.99 2 SCREW LCP 6.5MM 8MM FULL THREAD STAINLESS STEEL 35MM BONE LARGE HEXAGONAL - [id number] Screw SCREW LCP 6.5MM 8MM FULL THREAD STAINLESS STEEL 35MM BONE LARGE HEXAGONAL [employer] INC SY[employer]THES [facility] Right 218.035 1 INSERT TRIATHLON 4 X3 9MM TIBIAL POSTERIOR STABILIZE KNEE - [id number] Joint - Knee INSERT TRIATHLON 4 X3 9MM TIBIAL POSTERIOR STABILIZE KNEE [facility] [id number] Right [id number] 1 PROBLEM LIST: ACTIVE PROBLEM LIST Spinal Stenosis, Unspecified Region Other Than Cervical Mixed Hyperlipidemia Obesity, Unspecified 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), Idiopathic Primary Osteoarthritis of Both Knees Obesity, Class III, BMI >= 40 E66.01 Arthritis of Both Knees Oa (Osteoarthritis) of Knee OPERATIVE INDICATIONS: The patient has a long history of progressivebilateralknee pain, arthritis, and degeneration. They have developed varus deformity in the bilateral knee from predominantly medial wear and bone loss. Non-operative treatment and Physical Therapy have been attempted , but have not improved or controlled the symptoms and pain that occurs during normal daily activities. Knee motion has also become limited and is restricting the patient. bilateraltotal knee arthroplasty was recommended. The risks, benefits and potential complications of the arthroplasty surgery were discussed with the patient in detail. Specific details of the surgical procedure, hospitalization, recovery, rehabilitation, and long-term precautions were also presented. Pre-operative teaching was provided. Implant/prosthesis selection was outlined, and the many options available were explained; the final choice will be made at the time of the procedure to match the anatomy and condition of the bone, ligaments, tendons, and muscles. The patient was seen by [facility] for pre-operative optimization, and risk assessment. Swathi-operative blood management and the potential for blood transfusion were discussed with risks and options clearly outlined. Understanding of all topics was conveyed to me by the patient pre-operatively, and patient consent was given to proceed with thebilateral total knee replacement. OPERATIVE PROCEDURE: The patient was taken to the operating room and after satisfactory general anesthesia, was placed supine on the operating table and the bilateral lower extremity was prepped and draped in the usual sterile fashion. The leg was elevated. It was exsanguinated with an Esmarch. The tourniquet was inflated to 300 mmHg. An 8 inch incision was made over the anterior aspect of the knee. Dissection was carried down to the extensor mechanism and a medial parapatellar arthrotomy was performed. The patella was everted. The knee was flexed. The medial and lateral menisci were excised. The anterior cruciate ligament was sectioned. An intramedullary ru was passed through a drill hole in the distal femur and the distal femur was cut in 6 degrees of valgus. The sizing guide was placed on the anterior distal femur and then the anterior, posterior, and chamfer cuts were made for the femoral component. stave cutter was used to remove notch bone.Attention was then turned to the tibia, which was subluxed forward with a Marshall retractor. The proximal tibia was cut to resect minimal bone from the more affected medial side. Template was inserted on the top of the tibia and then the center hole and keel slots were made for the tibial component. The medial tibial plateau was very sclerotic and sustained a non displaced fracture when broaching. Two 6.5 cancellous screws with washers were placed to buttress the plateau. We used a 50mm cemented stem on the right tibial component.The trials were inserted with a 9/11PS polyethylene insert and the knee was taken through a full range of motion and was stable. Attention was then turned to the patella, which was calipered, and 7.5 mm of bone were resected from the undersurface of the patella using the patellar reaming system set for a 33 patella. The trials were removed. The ends of the bone were pulsatile lavaged and dried and 2 batches of cement were mixed and all 3 components were cemented simultaneously with a 9/11PS polyethylene insert in place to allow pressurization of the cement as the cement was allowed to harden. All excess cement was removed and the final size 9/11PS poly was impacted on the top of the tibia. The wound was copiously irrigated with antibiotic solution and closure was begun. The tourniquet was deflated. All excess bleeding was cauterized. The extensor mechanism was repaired with an 0 suture. The subcutaneous tissues were closed with 2-0 suture. The skin was closed with subcuticular suture. Sterile dressing was applied. The patient was taken to the recovery room in satisfactory condition. The arthritis was primary osteoarthritis. Estimated Blood Loss: 250 mls Specimens: none Drains: None Complications: None The primary surgeon/proceduralist performed the procedure with assistance. I performed the procedure with assistance. The residents and PA assisted with exposure and closure. SIGNATURE: Donte Moffett MD PATIENT NAME: Minal Caputo DATE: March 31, 2018 TIME: 5:01 PM PAGER/CONTACT #: [facility] PT EDon 03-31-2018 PT ED HNO ID: [id number] Author: Karly JulianRnStan Mendoza RN Service: Nursing Author Type: Registered Nurse Type: Patient Education Filed: 03/31/2018 10:33 AM Note Text: PATIENT EDUCATION TOPIC: PROCEDURE / SURGERY: Pre-op Teaching: Logistics PATIENT NAME: Minal Caputo PATIENT LOCATION: -OPERATING ROOM [facility]/* READINESS TO LEARN COGNITIVE ABILITY: Alert and oriented MOTIVATION TO LEARN: Eager FAMILY SUPPORT: High - Very involved in pt care INSTRUCTION PROVIDED TO: Patient and family member PATIENT LEARNS BEST BY: Verbal Instruction FACTORS AFFECTING LEARNING: None PHYSICAL LIMITATIONS AFFECTING LEARNING: None LEARNING RESPONSE PATIENT/FAMILY RESPONSE: Verbalizes understanding of: PRE-OPERATIVE INSTRUCTIONS-Correct action to take to follow pre-operative instructions METHOD OF INSTRUCTION: Verbal instruction FOLLOW-UP PLAN: Complete - No need for follow-up INSTRUCTIONAL AIDS USED: NA SUPPLEMENTAL MATERIAL PROVIDED TO PATIENT: None REFERRAL (RECOMMENDATION): None Electronically Signed By: Karly Mendoza RN [facility] XR KNEE 2V AP/LAT RTon 03-31 XR KNEE 2V AP/LAT RT * * *Final Report* * * DATE OF EXAM: Mar 31 2018 6:05PM LUX [id number] - XR KNEE 2V AP/LAT RT / PROCEDURE REASON: Post-operative / post-procedure assessment, asymptomatic * * * * Physician Interpretation * * * * EXAMINATION: XR KNEE 2V AP/LAT RT CLINICAL HISTORY: Postop Comparison: 02/24/2018 RESULT: Total knee replacement is seen. Prosthetic components appear in good position and alignment. No fracture or loosening. Suprapatellar effusion is seen. Soft tissue air is consistent with recent surgery. IMPRESSION: Satisfactory postoperative right knee. Dance Coach: PSCB Transcribe Date/Time: Mar 31 2018 6:26P Dictated by : GARRETT REYES MD This examination was interpreted and the report reviewed and electronically signed by: GARRETT REYES MD on Mar 31 2018 6:27PM EST [id number] [facility] NURSING PROGon 03-26-2018 Protein mass conc HNO ID: [id number] Author: Poornima (Rn) MALORIE Vance Service: (none) Author Type: Registered Nurse Type: Nursing Progress Note Filed: 03/28/2018 9:32 AM Note Text: PACC Nurse Progress Note History AND Physical: PACC Visit Date: 03/19/18 Original HANDP Date: N/A ED visit Date: N/A Outside HANDP Scanned Date: N/A Labs Within Last 6 Months: CBC: Date 03/19/18 BMP/CMP: Date 03/19/18 STAAMP: Date 03/19/18 neg. TYPE AND SCREEN: Date 03/19/18 OTHER TEST: iron studies, ferritin, Date 03/19/18 acceptable labs Imaging Within Last 12 Months: X-ray knee 02/24/18 Cardiac Testing: EKG in last 12 Months: Yes: Date: 03/19/18, Comment: in epic Last Menstrual Period: LMP Date: N/A Postmenopausal >1yr: Yes, S/P Hysterectomy: N/A BMI Percentile (PEDS): 46 Risk Assessment: N/A Anesthesia Review: N/A Narrative: Awaiting allergy consult for pcn. appt. 03/27/18 730am Pre-op Considerations: N/A Chart Check: IN PROGRESS Jennifer Pack RN March 26, 2018 12:34 PM See epic encounters (03/27/18) for office visit with Dr. Roldan, note in [facility] includes the followin. Patient was informed of the skin testing result. Since she also has (-) oral challenge, she has no penicillin allergy Chart check complete. MGreiciusRN Normal [facility] Type and SCR (30D)on 018 ABO/RH(D) Positive [facility] Comment on above: Performed By: #### T [id number] #### [facility] [address] [place] [address] HOSPon 02-24-2018 HOSP Patient:Minal Caputo MRN: Height:5' 3 (1.6 m) Weight:266 lb 4.8 oz (120.793 kg) Outpatient Medications as of 03/31/18: aspirin, enteric coated (ECOTRIN LOW STRENGTH) 81 mg EC tablet docusate sodium (COLACE) 100 mg capsule meloxicam (MOBIC) 7.5 mg tablet oxyCODONE IR (ROXICODONE) 5 mg immediate release tablet pantoprazole DR (PROTONIX) 20 mg tablet diclofenac, EC, (VOLTAREN) 75 mg EC tablet furosemide (LASIX) 40 mg tablet MULTIVITAMIN ORAL potassium chloride (K-TAB) 10 mEq tablet atorvastatin calcium(LIPITOR 20 MG TAB) METOPROLOL 100 MG TAB Admission/Clinic Administered Medications as of 03/31/18: lidocaine 10 mg/mL (1 %) 1-2 mg injection (XYLOCAINE) lactated ringers infusion celecoxib 200 mg cap(s) (CeleBREX) ceFAZolin 3 g in D5W 100 mL (ANCEF) Problem List: Spinal stenosis, unspecified region other than cervical [M48.00] Mixed hyperlipidemia [E78.2] Obesity, unspecified [E66.9] Undiagnosed cardiac murmurs [R01.1] ASA CLASS II [1001] Mitral valve disorders(424.0) [I05.9] Scoliosis (and kyphoscoliosis), idiopathic [M41.20] Primary osteoarthritis of both knees [M17.0] Obesity, Class III, BMI >= 40 E66.01 [E66.01] Arthritis of both knees [M17.0] OA (osteoarthritis) of knee [M17.10] Allergies: ADHESIVE BANDAGES [Other] Sulfa (Sulfonamide Antibiotics) Date Verified: 03/31/18 Lab Values Lab Value Units Date High Low POTA* 3.9 mmol/L 03/19/2018 5.1 3.7 ADOLFO* 43.6 % 03/19/2018 46.0 36.0 Progress Notes ([facility]): Wilfredo Roldan MD 03/27/2018 1:26 PM Signed PATIENT NAME: Minal Caputo CCF: # [id number] DATE: 1955 AGE: [age] year old SEX: female DATE OF SERVICE: March 27, 2018 CONSULTING PHYSICIAN: Steff Ram PA-C REASON(S) FOR CONSULTATION: Evaluation of Penicillin Allergy Minal Caputo is a 62 year old year old female who presented with history of Penicillin Allergy when she was a baby . No information as to what medication was give and what kind of reaction occurred. She has since avoid taking penicillin and it's derivatives. 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 She is referred here for Penicillin testing before her bilateral knee replacement next Mar 31. PAST MEDICAL HISTORY Diagnosis Date - GERD (gastroesophageal reflux disease) - Hiatal hernia - HLD (hyperlipidemia) - HTN (hypertension) - Obesity, unspecified - Other and unspecified hyperlipidemia - Scoliosis - Spinal stenosis, unspecified region other than cervical PAST SURGICAL HISTORY Procedure Laterality Date - , CLASSIC, IN-HOSP CARE 1980 - [facility] AFTER DELIVERY - PAST SURGICAL HISTORY OF 1986 spinal instrumentation (Valadez rods) - PAST SURGICAL HISTORY OF 2006 lumbar laminectomy ALLERGIES: ALLERGIES Allergen Reactions - Adhesive Bandages [* Rash ADHESIVE BANDAGES.. RASH - Penicillins Hives - Sulfa (Sulfonamide * CURRENT MEDICATIONS: diclofenac, EC, (VOLTAREN) 75 mg EC tablet furosemide (LASIX) 40 mg tablet MULTIVITAMIN ORAL Take by mouth. potassium chloride (K-TAB) 10 mEq tablet Take 10 mEq by mouth twice daily. atorvastatin calcium(LIPITOR 20 MG TAB) Take one(1) tablet daily. METOPROLOL 100 MG TAB Take one(1) tablet daily. No current facility-administered medications on file prior to visit. Social History Marital status: Spouse name: Years of education: Number of children: Social History Main Topics Smoking status: Never Smoker Smokeless tobacco: Never Used Alcohol use: Yes Comment: socially- couple times per year Drug use: No FAMILY HISTORY Problem Relation Age of Onset - Cancer Father prostate - Heart Father chf - Lipids Father - Lipids Mother - Hypertension Father REVIEW OF SYSTEM: General: No weight loss or abnormal weight gain. no chillness or fevers. HEENT: Negative for significant headaches. No nose bleeds. Denies persistent sore throat. Neck: Negative for lumps, goiter. No pain. Resp: Denies for cough, wheezing and shortness of breath CV: Negative for palpitations and cyanosis. GI: Negative for nausea, vomiting, abdominal discomfort, blood in stools or change in bowel habits. (+) GERD. : Negative for dysuria, frequency. Neuro: Denies weakness, or dizziness. MusculoskeletalL: joints pain. to have knee replacement. Psych: Denies any anxiety or depression. Endocrine: Negative for cold or heat intolerance, polyuria, polydipsia and goiter. All other review of systems negative except for those listed above: PHYSICAL EXAMINATION: Blood pressure 138/80, pulse 69, resp. rate 20, weight 120.8 kg (266 lb 4.8 oz), last menstrual period 08/26/2006, SpO2 97 %. Appearance: well appearing, in no acute distress, alert Eyes: sclera non-icteric, conjunctiva non-injected. Ears: External ears normal. Canals clear. TM's normal. Nose: Nares normal. Septum midline. Mucosa normal. No drainage or sinus tenderness. Oropharynx: Lips, tongue normal. Oropharynx clear. Throat: No erythema Neck: supple, no adenopathy Lung: Good air exchange and normal breathing effort. Clear to auscultation Skin: Skin color, texture, turgor normal. No rashes or lesions. Rest of exam not done. LAB ANDDIAGNOSTIC STUDIES: Penicillin Allergy skin testing (-) - for test result please refer to nurse note. ASSESSMENT AND PLAN: (Z88.0) History of penicillin allergy (primary encounter diagnosis) Comment: History of Penicillin allergy as a baby with no detail information. (-) Penicillin allergy skin testing and oral challenge with Amoxacillin. Plan: 1. Patient was informed of the skin testing result. Since she also has (-) oral challenge, she has no penicillin allergy. However she was informed that the skin testing detects IgE mediated allergy and does not predict non-IgE mediated reaction. Patient voiced understanding. 2. Update patient's record to delete Penicillin allergy from her allergy list. All questions answered and patient/parents is agreeable to above plan. Will call if have any questions or problems. Follow-up PRN. Wilfredo Roldan MD Forwarded to: JAZZY Hernandez LPN 03/27/2018 10:47 AM Signed Penicillin G Sodium Lot #[id number] Exp. 03/27/18 [employer] NDC: 9103-7428-31 Prepen Lot #[id number] Exp. 06/13 [employer] NDC: 27248-852-80 0.9% Sodium chloride Inj Lot# [id number] Exp. 07/26/2019 [facility] NDC:9430-2227-96 Skin testing at 15 minute intervals. Prick test with undiluted Prepen, Penicillin G Sodium 10,000 u/ml, with Negative and Positive controls in right forearm. Intradermal injection 0.02ml Penicillin G Sodium 10,000 u/ml, undiluted Prepen,and Negative Control in right forearm. Patient tolerated procedure well. Denied any complaints. Testing: ? EPICUTANEOUS: Time applied: 0745 Time read: ??0800?Penicillin G 10,000 U/ml: ?0/0 ??Pre pen Undiluted: ?0/0 ??CONTROL: ?0/0 ??HISTAMINE: ?7/9? INTRADERMAL TESTING: Time applied: 0805 Time read: ?? 0820 Penicillin G 10,000 U/ml: ?0/0 Pre pen Undiluted: ?0/0 CONTROL: ?0/0 ORAL Antibiotic?Challenge ? Amoxicillin 250mg/5ml Lot: [id number] Exp: 04/03/2018 ? Given at 0830 Dose:?250 mg/5ml Observed for 60 minutes. Patient denies any symptoms of adverse reaction (rash/hives/itching/swelli ng/breathing difficulties). ? Patient was evaluated by physician and discharged from clinic at 0930. [facility] XR KNEE 4V AP/PA BOTH+LAT/ME R LTon 02-24-2018 XR KNEE 4V AP/PA BOTH+LAT/JENNA LT * * *Final Report* * * DATE OF EXAM: Feb 24 2018 7:55AM LUX 5202 - XR KNEE 4V AP/PA BOTH+LAT/JENNA LT / PROCEDURE REASON: Pain, unspecified * * * * Physician Interpretation * * * * History: Pain FINDINGS: AP, PA, and merchant views of both knees, and a lateral view of each knee have been obtained. There are moderate degenerative changes bilaterally. There is narrowing of the femoral-tibial joint space of each knee medially, slightly more pronounced on the left, with associated marginal spurring. There is bilateral femoral patellar narrowing with osteophyte formation. There is slight lateral tilt of each patella relative to the femur. No acute process is seen. There is no joint effusion. IMPRESSION: Degenerative changes with no acute process seen. Dance Coach: BEA Transcribe Date/Time: Feb 24 2018 11:07A Dictated by : MAYITO MCDONALD MD This examination was interpreted and the report reviewed and electronically signed by: MAYITO MCDONALD MD on Feb 24 2018 12:22PM EST [id number] [facility] XR KNEE 4V AP/PA BOTH+LAT/ME R RTon 02-24-2018 XR KNEE 4V AP/PA BOTH+LAT/JENNA RT * * *Final Report* * * DATE OF EXAM: Feb 24 2018 7:55AM LUX 5203 - XR KNEE 4V AP/PA BOTH+LAT/JENNA RT / PROCEDURE REASON: Pain, unspecified * * * * Physician Interpretation * * * * History: Pain FINDINGS: AP, PA, and merchant views of both knees, and a lateral view of each knee have been obtained. There are moderate degenerative changes bilaterally. There is narrowing of the femoral-tibial joint space of each knee medially, slightly more pronounced on the left, with associated marginal spurring. There is bilateral femoral patellar narrowing with osteophyte formation. There is slight lateral tilt of each patella relative to the femur. No acute process is seen. There is no joint effusion. IMPRESSION: Degenerative changes with no acute process seen. Dance Coach: PSCB Transcribe Date/Time: Feb 24 2018 11:07A Dictated by : MAYITO MCDONALD MD This examination was interpreted and the report reviewed and electronically signed by: MAYITO MCDONALD MD on Feb 24 2018 12:22PM EST [id number] [facility] No Panel Information [facility] Vital Signs Date Time Vital Sign Value Performing Clinician Facility 11-05-2023 10:44-0400 SaO2% (BldA) [Mass fraction] 90 % Brianna Renner APRN.ANESTHESIOLOGY RESIDENT Work Phone: [facility] 11-05-2023 10:42-0400 Diastolic blood pressure 77 mm[Hg] Chair Francine Work Phone: [facility] 11-05-2023 10:42-0400 Systolic blood pressure 143 mm[Hg] Chair Mcminn Work Phone: [facility] 11-05-2023 09:44-0400 Body height 153.8 cm Brianna Renner APRN.ANESTHESIOLOGY RESIDENT Work Phone: [facility] 11-05-2023 09:44-0400 Body temperature 97.3 [degF] Brianna Renner APRN.ANESTHESIOLOGY RESIDENT Work Phone: [facility] 11-05-2023 09:44-0400 Body weight 123.8 kg Brianna Renner APRN.ANESTHESIOLOGY RESIDENT Work Phone: [facility] 11-05-2023 09:44-0400 Diastolic blood pressure 78 mm[Hg] Brianna Renner SPRAYING MACHINE OPERATOR.ANESTHESIOLOGY RESIDENT Work Phone: [facility] 11-05-2023 09:44-0400 Heart rate 84 /min Brianna Renner SPRAYING MACHINE OPERATOR.ANESTHESIOLOGY RESIDENT Work Phone: [facility] 11-05-2023 09:44-0400 Respiratory rate 24 /min Brianna Renner SPRAYING MACHINE OPERATOR.ANESTHESIOLOGY RESIDENT Work Phone: [facility] 11-05-2023 09:44-0400 Systolic blood pressure 168 mm[Hg] Brianna Renner SPRAYING MACHINE OPERATOR.ANESTHESIOLOGY RESIDENT Work Phone: [facility] 10-23-2023 13:38-0500 Body temperature 97.9 [degF] [facility] [place] Work Phone: [facility] 10-23-2023 13:38-0500 Diastolic blood pressure 84 mm[Hg] [facility] Work Phone: [facility] 10-23-2023 13:38-0500 Heart rate 71 /min [facility] [place] Work Phone: [facility] 10-23-2023 13:38-0500 Respiratory rate 18 /min [facility] Work Phone: [facility] 10-23-2023 13:38-0500 SaO2% (BldA) [Mass fraction] 95 % [facility] Work Phone: [facility] 10-23-2023 13:38-0500 Systolic blood pressure 211 mm[Hg] [facility] [place] Work Phone: [facility] 10-22-2023 09:09-0500 Body height 153.8 cm Mitch Garcia MD Work Phone: [facility] 10-22-2023 09:09-0500 Body temperature 97.9 [degF] Mitch Garcia MD Work Phone: [facility] 10-22-2023 09:09-0500 Body weight 121.7 kg Mitch Garcia MD Work Phone: [facility] 10-22-2023 09:09-0500 Diastolic blood pressure 66 mm[Hg] Mitch Garcia MD Work Phone: [facility] 10-22-2023 09:09-0500 Heart rate 72 /min Mitch Garcia MD Work Phone: [facility] 10-22-2023 09:09-0500 Respiratory rate 16 /min Mitch Garcia MD Work Phone: [facility] 10-22-2023 09:09-0500 SaO2% (BldA) [Mass fraction] 95 % Mitch Garcia MD Work Phone: [facility] 10-22-2023 09:09-0500 Systolic blood pressure 185 mm[Hg] Mitch Garcia MD Work Phone: [facility] 10-09-2023 10:28-0500 Body height 157.5 cm Leo Gerard SPRAYING MACHINE OPERATOR-ANESTHESIOLOGY RESIDENT Work Phone: [facility] 10-09-2023 10:28-0500 Body mass index (BMI) [Ratio] 51.03 kg/m2 Leo Gerard SPRAYING MACHINE OPERATOR-ANESTHESIOLOGY RESIDENT Work Phone: [facility] 10-09-2023 10:28-0500 Body temperature 98.4 [degF] Leo Gerard SPRAYING MACHINE OPERATOR-ANESTHESIOLOGY RESIDENT Work Phone: [facility] 10-09-2023 10:28-0500 Body weight 126.55 kg Leo Gerard SPRAYING MACHINE OPERATOR-ANESTHESIOLOGY RESIDENT Work Phone: [facility] 10-09-2023 10:28-0500 Diastolic blood pressure 78 mm[Hg] Leo Gerard SPRAYING MACHINE OPERATOR-ANESTHESIOLOGY RESIDENT Work Phone: [facility] 10-09-2023 10:28-0500 Heart rate 83 /min Leo Gerard SPRAYING MACHINE OPERATOR-ANESTHESIOLOGY RESIDENT Work Phone: [facility] 10-09-2023 10:28-0500 SaO2% (BldA) [Mass fraction] 98 % Leo Gerard SPRAYING MACHINE OPERATOR-ANESTHESIOLOGY RESIDENT Work Phone: [facility] 10-09-2023 10:28-0500 Systolic blood pressure 158 mm[Hg] Leo Gerard APRN-ANESTHESIOLOGY RESIDENT Work Phone: [facility] 09-26-2023 08:04-0500 Body height 157.5 cm Pacc 1 Work Phone: [facility] 09-26-2023 08:04-0500 Body temperature 98.4 [degF] Pacc 1 Work Phone: [facility] 09-26-2023 08:04-0500 Body weight 124.5 kg Pacc 1 Work Phone: [facility] 09-26-2023 08:04-0500 Diastolic blood pressure 56 mm[Hg] Pacc 1 Work Phone: [facility] 09-26-2023 08:04-0500 Heart rate 74 /min Pacc 1 Work Phone: [facility] 09-26-2023 08:04-0500 Respiratory rate 20 /min Pacc 1 Work Phone: [facility] 09-26-2023 08:04-0500 SaO2% (BldA) [Mass fraction] 94 % Pacc 1 Work Phone: [facility] 09-26-2023 08:04-0500 Systolic blood pressure 152 mm[Hg] Pacc 1 Work Phone: [facility] 08-06-2023 08:35-0500 Body temperature 96.8 [degF] Mendoza Yang MD Work Phone: [facility] 08-06-2023 08:35-0500 Body weight 123.78 kg Mendoza Yang MD Work Phone: [facility] 08-06-2023 08:35-0500 Diastolic blood pressure 63 mm[Hg] Mendoza Yang MD Work Phone: [facility] 08-06-2023 08:35-0500 Heart rate 65 /min Mendoza Yang MD Work Phone: [facility] 08-06-2023 08:35-0500 Respiratory rate 20 /min Mendoza Yang MD Work Phone: [facility] 08-06-2023 08:35-0500 SaO2% (BldA) [Mass fraction] 96 % Mendoza Yang MD Work Phone: [facility] 08-06-2023 08:35-0500 Systolic blood pressure 169 mm[Hg] Mendoza Yang MD Work Phone: [facility] 07-26-2023 11:55-0500 Body height 160 cm Pacc 4 Work Phone: [facility] 07-26-2023 11:55-0500 Body temperature 97.81 [degF] Pacc 4 Work Phone: [facility] 07-26-2023 11:55-0500 Body weight 126.8 kg Pacc 4 Work Phone: [facility] 07-26-2023 11:55-0500 Diastolic blood pressure 74 mm[Hg] Pacc 4 Work Phone: [facility] 07-26-2023 11:55-0500 Heart rate 69 /min Pacc 4 Work Phone: [facility] 07-26-2023 11:55-0500 Respiratory rate 17 /min Pacc 4 Work Phone: [facility] 07-26-2023 11:55-0500 SaO2% (BldA) [Mass fraction] 95 % Pacc 4 Work Phone: [facility] 07-26-2023 11:55-0500 Systolic blood pressure 174 mm[Hg] Pacc 4 Work Phone: [facility] 02-28-2023 12:30-0400 Diastolic blood pressure 80 mm[Hg] DO Janet Dillard Work Phone: [facility] 02-28-2023 12:30-0400 Heart rate 62 /min DO Janet Gilma Work Phone: [facility] 02-28-2023 12:30-0400 Respiratory rate 16 /min DO Janet Gilma Work Phone: [facility] 02-28-2023 12:30-0400 SaO2% (BldA) [Mass fraction] 100 % DO Janet Gilma Work Phone: [facility] 02-28-2023 12:30-0400 Systolic blood pressure 184 mm[Hg] DO Janet Gilma Work Phone: [facility] 02-28-2023 09:53-0400 Body height 157.48 cm DO Janet Gilma Work Phone: [facility] 02-28-2023 09:53-0400 Body weight 127 kg DO Janet Gilma Work Phone: [facility] 12-07-2022 17:10-0400 Body height 154.94 cm Debbie Ramirez Other [employer] Other 12-07-2022 17:10-0400 Body mass index (BMI) [Ratio] 52.22 kg/m2 Debbie Ramirez Other [employer] Other 12-07-2022 17:10-0400 Body temperature 100 [degF] Debbie Ramirez Other [employer] Other 12-07-2022 17:10-0400 Body weight 125.38 kg Debbie Ramirez Other [employer] Other 12-07-2022 17:10-0400 Diastolic blood pressure 93 mm[Hg] Debbie Ramirez Other [employer] Other 12-07-2022 17:10-0400 Respiratory rate 20 /min Debbie Ramirez Other [employer] Other 12-07-2022 17:10-0400 SaO2% (BldA) [Mass fraction] 95 % Debbie Ramirez Other [employer] Other 12-07-2022 17:10-0400 Systolic blood pressure 142 mm[Hg] Debbie Ramirez Other [employer] Other 12-03-2022 18:30-0400 Body height 154.94 cm Karen Parrish Other [employer] Other 12-03-2022 18:30-0400 Body mass index (BMI) [Ratio] 52.9 kg/m2 Karen Parrish Other [employer] Other 12-03-2022 18:30-0400 Body temperature 100 [degF] Karen Parrish Other [employer] Other 12-03-2022 18:30-0400 Body weight 127.01 kg Karen Parrish Other [employer] Other 12-03-2022 18:30-0400 Diastolic blood pressure 97 mm[Hg] Karen Parrish Other [employer] Other 12-03-2022 18:30-0400 Respiratory rate 20 /min Karen Parrish Other [employer] Other 12-03-2022 18:30-0400 SaO2% (BldA) [Mass fraction] 93 % Karen Parrish Other [employer] Other 12-03-2022 18:30-0400 Systolic blood pressure 189 mm[Hg] Karen Parrish Other [employer] Other 06-17-2022 10:25-0400 Body height 154.94 cm Dayanna Endy Other [employer] Other 06-17-2022 10:25-0400 Body mass index (BMI) [Ratio] 52.9 kg/m2 Dayanna Mikeault Other [employer] Other 06-17-2022 10:25-0400 Body temperature 98.6 [degF] Dayanna Endy Other [employer] Other 06-17-2022 10:25-0400 Body weight 127.01 kg Dayanna Mikeault Other [employer] Other 06-17-2022 10:25-0400 Diastolic blood pressure 90 mm[Hg] Dayanna Endy Other [employer] Other 06-17-2022 10:25-0400 Respiratory rate 20 /min Dayanna Endy Other [employer] Other 06-17-2022 10:25-0400 SaO2% (BldA) [Mass fraction] 98 % Dayanna Endy Other [employer] Other 06-17-2022 10:25-0400 Systolic blood pressure 190 mm[Hg] Dayanna Endy Other [employer] Other 04-03-2022 13:17-0400 Body height 157.5 cm Shailesh Izquierdo MD Work Phone: [facility] 04-03-2022 13:17-0400 Body weight 127.01 kg Shailesh Izquierdo MD Work Phone: [facility] 03-19-2022 15:23-0400 Body weight 125.83 kg Alberto Monsalve DO Work Phone: [facility] 03-19-2022 15:23-0400 Diastolic blood pressure 81 mm[Hg] Alberto Mendis DO Work Phone: [facility] 03-19-2022 15:23-0400 Heart rate 104 /min Alberto Mendis DO Work Phone: [facility] 03-19-2022 15:23-0400 Systolic blood pressure 174 mm[Hg] Alberto Mendis DO Work Phone: [facility] 12-08-2021 08:25-0400 Body height 157.5 cm John Dc MD Work Phone: [facility] 12-08-2021 08:25-0400 Body weight 124.74 kg John Dc MD Work Phone: [facility] 12-08-2021 08:25-0400 Diastolic blood pressure 79 mm[Hg] John Dc MD Work Phone: [facility] 12-08-2021 08:25-0400 Heart rate 73 /min John Dc MD Work Phone: [facility] 12-08-2021 08:25-0400 Systolic blood pressure 128 mm[Hg] John Dc MD Work Phone: [facility] Encounters Encounter Date Encounter Type Care Provider Facility Start: 11-11-2023 Telephone encounter Yvonne Baumann RN Work Phone: Hematology/Oncology Comment on above: Care Coordination (H ospital d/c follow up call) Care Coordination (M edication update) Start: 11-06-2023 Telephone encounter Steph Rendon CMA [facility] Comment on above: Care Coordination (H ospital update) Start: 11-05-2023 End: 11-06-2023 ambulatory BRIANNA Lucas JUD [facility] Start: 11-05-2023 Telephone encounter Yvonne Baumann RN Work Phone: Hematology/Oncology Comment on above: Care Coordination (P E) Multiple subsegmenta l pulmonary emboli without acute cor pulmonale (CMS-HCC) (Primary Dx) Start: 11-05-2023 End: 11-05-2023 ambulatory [facility] Facility:[facility] Start: 11-05-2023 End: 11-05-2023 Patient encounter procedure Brianna Jud SPRAYING MACHINE OPERATOR.ANESTHESIOLOGY RESIDENT Work Phone: [facility] Start: 11-05-2023 End: 11-05-2023 ambulatory [facility] Francine Work Phone: Hematology/Oncology Comment on above: Invasive lobular car cinoma of breast in female (HCC) Invasive lobular car cinoma of breast in female (HCC) (Primary Dx) Chest pain, unspecif ied type (Primary Dx); Invasive lobular carcinoma of breast in female (HCC); Generalized edema Start: 11-01-2023 Refill Merary Resendiz CNA [facility] Comment on above: ASCVD (arteriosclero tic cardiovascular disease) Start: 10-24-2023 End: 10-24-2023 [facility] Start: 10-24-2023 End: 10-24-2023 Postop follow up visit related to original px Gabby Urbina MD Work Phone: Plastic Surgery Comment on above: Invasive lobular car cinoma of breast in female (HCC) (Primary Dx); Post-operative state Start: 10-23-2023 End: 10-23-2023 ambulatory MITCH GARCIA Facility:[facility] Start: 10-23-2023 End: 10-23-2023 ambulatory [facility] Mcminn Work Phone: Hematology/Oncology Comment on above: Invasive lobular car cinoma of breast in female (HCC) (Primary Dx) Start: 10-22-2023 End: 10-22-[address] RD Work Phone: Nutrition Therapy Comment on above: Nutrition Assessment Start: 10-22-2023 Telephone encounter Mitch beebe MD Work Phone: Hematology/Oncology Comment on above: Disability Madi Start: 10-22-2023 End: 10-22-2023 ambulatory MUROMANID M [place] Facility:[facility] Start: 10-22-2023 End: 10-22-2023 Patient encounter procedure Mitch Garcia MD Work Phone: [facility] Start: 10-22-2023 End: 10-22-2023 ambulatory [facility] Franc[place] Work Phone: Hematology/Oncology Comment on above: Invasive lobular car cinoma of breast in female (HCC) Invasive lobular car cinoma of breast in female (HCC) (Primary Dx) Start: 10-14-2023 Telephone encounter Yvonne Baumann RN Work Phone: Hematology/Oncology Comment on above: Care Coordination (T reatment reschedule) Start: 10-11-2023 Telephone encounter Mitch beebe MD Work Phone: Hematology/Oncology Comment on above: Lab Orders Start: 10-10-2023 Telephone encounter Kendal griffin RN Work Phone: Hematology/Oncology Comment on above: Care Coordination (C linical Information Request) Start: 10-09-2023 End: 10-09-2023 ambulatory [facility] Start: 10-09-2023 End: 10-09-2023 Office outpatient visit 10 minutes [facility] SPRAYING MACHINE OPERATOR-ANESTHESIOLOGY RESIDENT Work Phone: [facility] Comment on above: Right non-suppurativ e otitis media (Primary Dx); Acute recurrent sinusitis, unspecified location; Acute rhinitis Start: 10-07-2023 Telephone encounter Eliceo Mejia RN An mike Comment on above: Patient Question Start: 09-27-2023 End: 09-27-2023 ambulatory UNKNOWN PROVIDER [facility] Start: 09-27-2023 Telephone encounter Yvonne Baumann RN Work Phone: Hematology/Oncology Comment on above: Care Coordination (a ppointments) Start: 09-26-2023 End: 09-26-2023 ambulatory HUI ROBERTSSAMY Facility:[facility] Start: 09-26-2023 End: 09-26-2023 [facility] Work Phone: Pre Anesthesia Comment on above: Preoperative clearan ce (Primary Dx); Mixed hyperlipidemia; Primary hypertension; Palpitations; PETERSON (dyspnea on exertion); Disorder of mitral valve; Morbid obesity (HCC); Edema, unspecified type; Idiopathic scoliosis and kyphoscoliosis; Rheumatoid arthritis, involving unspecified site, unspecified whether rheumatoid factor present (HCC) Start: 09-26-2023 End: 09-26-2023 Preoperative state [facility] 1 Work Phone: [facility] Work Phone: Start: 09-25-2023 Telephone encounter Citlali Sanchez [facility] General Surgery Start: 09-24-2023 End: 10-25-2023 ambulatory [facility] Start: 09-20-2023 End: 09-21-2023 ambulatory BHARATHID M [place] Facility:[facility] Start: 09-18-2023 End: 09-19-2023 ambulatory [facility] Start: 09-17-2023 End: 09-17-2023 ambulatory MUROMANID M [place] Facility:[facility] Start: 09-13-2023 End: 09-14-2023 ambulatory MUHAMID M [place] Facility:[facility] Start: 09-13-2023 End: 09-13-2023 ambulatory HEATHER CASTILLO Facility:[facility] Start: 09-05-2023 End: 09-05-2023 ambulatory MUHAMID M [place] Facility:[facility] Start: 09-04-2023 End: 09-05-2023 ambulatory RITA AMANDA Facility:[facility] Start: 08-29-2023 End: 08-30-2023 ambulatory SUNNY JENKINS Facility:[facility] Start: 08-23-2023 Telephone encounter [facility] Start: 08-06-2023 End: 08-06-2023 ambulatory RITA AMANDA Facility:[facility] Start: 08-06-2023 End: 08-06-2023 Patient encounter procedure Ev Cai APRN.CNP Work Phone: Breast Center Comment on above: Invasive lobular car cinoma of left breast in female (HCC) (Primary Dx); S/P left mastectomy Start: 08-06-2023 End: 08-06-2023 ambulatory RITA AMANDA Facility:[facility] Start: 08-06-2023 End: 08-06-2023 ambulatory Mendoza Yang MD Work Phone: Hematology/Oncology Comment on above: Invasive lobular car cinoma of breast in female (HCC) (Primary Dx) Start: 08-06-2023 End: 08-06-2023 Patient encounter procedure Mendoza Yang MD Work Phone: [facility] Start: 07-30-2023 End: 07-30-2023 ambulatory RITA AMANDA Facility:[facility] Start: 07-29-2023 End: 07-30-2023 ambulatory RITA AMANDA Facility:[facility] Start: 07-29-2023 End: 07-29-2023 Patient encounter status Rita Amanda Work Phone: [facility] Start: 07-29-2023 End: 07-29-2023 Subsequent hospital visit by physician [facility] Work Phone: Molecular Imaging Comment on above: Invasive lobular car cinoma of breast in female (HCC) [C50.919] Start: 07-26-2023 End: 07-26-2023 ambulatory RITA AMANDA Facility:[facility] Start: 07-26-2023 Encounter for other preprocedural examination SUNNY JENKINS [facility] Start: 07-26-2023 End: 07-26-2023 [facility] Work Phone: Pre Anesthesia Comment on above: Preop examination (P rimary Dx); Mixed hyperlipidemia; Primary hypertension; Palpitations; PETERSON (dyspnea on exertion); Gastroesophageal reflux disease, unspecified whether esophagitis present; Disorder of mitral valve; Morbid obesity (HCC); Edema, unspecified type; Idiopathic scoliosis and kyphoscoliosis; Rheumatoid arthritis, involving unspecified site, unspecified whether rheumatoid factor present (HCC) Start: 07-26-2023 End: 07-26-2023 Preprocedural examination done [facility] Work Phone: [facility] Work Phone: Start: 07-24-2023 Telephone encounter Leatha tillman RN Work Phone: Breast [facility] Comment on above: Drop Count Associate - O ther (methotrexate) Start: 07-23-2023 End: 07-24-2023 ambulatory RITA AMANDA Facility:[facility] Start: 07-23-2023 End: 07-23-2023 Patient encounter procedure Dante Rehman MD Work Phone: Radiation Oncology Comment on above: Invasive lobular car cinoma of breast in female (HCC) (Primary Dx) Start: 07-23-2023 End: 07-23-2023 Subsequent hospital visit by physician [facility] Work Phone: Mammography Comment on above: Malignant neoplasm o f left female breast, unspecified estrogen receptor status, unspecified site of breast (HCC) [C50.912] Start: 07-17-2023 Orders Only Heather Castillo MD Work Phone: Breast Center Comment on above: Malignant neoplasm o f left female breast, unspecified estrogen receptor status, unspecified site of breast (HCC) (Primary Dx) Start: 07-12-2023 Telephone encounter Milton Mcintosh RN [facility] Start: 02-28-2023 End: 02-28-2023 ambulatory Nikko Astorga Facility:[facility] Start: 02-28-2023 End: 02-28-2023 Admission to same day surgery center DO Janet Dillard Work Phone: [facility] [place] Work Phone: Start: 02-28-2023 End: 02-28-2023 ambulatory DO Janet Dillard Work Phone: [facility] Work Phone: Start: 02-11-2023 ambulatory RITA FORD TREASURE Fa cility:[facility] Start: 02-08-2023 ambulatory Micah Albarran Son DO Work Phone: Orthopaedics Start: 02-08-2023 E-mail encounter fro m caregiver Micah Albarran Son DO Work Phone: [facility] Start: 02-07-2023 End: 02-07-2023 ambulatory RITAGABINO POWELLLER Facility:[facility] Start: 02-05-2023 End: 02-05-2023 ambulatory RITA CHAAvis AMANDA Facility:[facility] Start: 01-31-2023 End: 01-31-2023 ambulatory RITA AMANDA Facility:[facility] Start: 01-31-2023 Encounter for other preprocedural examination SUNNY JENKINS [facility] Start: 01-30-2023 Telephone encounter Elida jurado PA-C Work Phone: Pre Anesthesia Comment on above: Reschedule PACC Start: 01-29-2023 End: 01-29-2023 Evaluation and management of inpatient RITA POWELLLER Facility:[facility] Start: 01-29-2023 End: 01-29-2023 Admission to establishment [facility] [place] [facility] Work Phone: [facility] Start: 01-29-2023 End: 01-29-2023 ambulatory [facility] [place] [facility] Work Phone: Pre Anesthesia Comment on above: Canceled (CC cx: Equ ipment, Prep, Appropriateness) Start: 12-10-2022 End: 12-11-2022 Evaluation and management of inpatient DR DONTE CUELLAR . Facility: Start: 12-07-2022 End: 12-07-2022 ambulatory Debbie Ramirez Other [employer] Other Start: 12-07-2022 Office outpatient vi sit 15 minutes Debbie Ramirez [facility] Start: 12-03-2022 End: 12-03-2022 ambulatory aKren Parrish Other [employer] Other Start: 12-03-2022 Office outpatient vi sit 25 minutes Karen Parrish [facility] Start: 10-02-2022 End: 10-02-2022 ambulatory Nikko Astorga Facility:[facility] Start: 10-02-2022 End: 10-02-2022 ambulatory PHYSICIAN NO [facility] Work Phone: Start: 10-02-2022 End: 10-02-2022 Departed Referred PHYSICIAN [facility] [place] Work Phone: Start: 09-19-2022 End: 09-19-2022 ambulatory Nell Trujillo SPRAYING MACHINE OPERATOR.ANESTHESIOLOGY RESIDENT Work Phone: Gastroenterology Comment on above: Gastroesophageal ref lux disease, unspecified whether esophagitis present (Primary Dx); Screening for colon cancer; Hiatal hernia Start: 09-19-2022 End: 09-19-2022 Telemedicine consultation with patient Nell Trujillo SPRAYING MACHINE OPERATOR.ANESTHESIOLOGY RESIDENT Work Phone: [facility] Start: 09-06-2022 End: 09-06-2022 Patient encounter procedure Micah Son DO Work Phone: Orthopaedics Comment on above: 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 (Primary Dx) Start: 08-12-2022 End: 08-12-2022 ambulatory DO Janet Dillard Work Phone: [facility] Work Phone: Start: 08-12-2022 End: 08-12-2022 Departed Referred DO Janet Dillard Work Phone: [facility] [place] Start: 07-03-2022 ambulatory Facility:[facility] Start: 07-02-2022 End: 07-02-2022 ambulatory Janet Dillard Facility:[id number] Start: 07-02-2022 End: 07-02-2022 ambulatory DO Jnaet Dillard Work Phone: [facility] Work Phone: Start: 07-02-2022 End: 07-02-2022 Patient encounter procedure DO Janet Dillard Work Phone: [facility]Electrodiagnostics Start: 06-17-2022 End: 06-17-2022 ambulatory Dayanna Schumacher Other [employer] Other Start: 06-17-2022 Office outpatient vi sit 15 minutes Dayanna Schumacher [facility] Start: 05-02-2022 End: 05-02-2022 Patient encounter procedure HENRIK Perez Work Phone: [facility] [place] Start: 04-03-2022 End: 04-03-2022 Orders Only Lopez Salmon DO Work Phone: Neurology Comment on above: Thyroid nodule (Prim parker Dx) BMI 50.0-59.9, adult (HCC) (Primary Dx); Primary osteoarthritis of left hip; Type 2 diabetes mellitus with hyperglycemia, unspecified whether [facility] insulin use (HCC) Start: 03-29-2022 End: 03-29-2022 Subsequent hospital visit by physician [facility] Work Phone: [facility] Radiology Ultrasound Comment on above: Thyroid nodule [E04. 1] Start: 03-26-2022 Telephone encounter Lopez gurrola DO Work Phone: Neurology Comment on above: Orders Start: 03-23-2022 End: 03-23-2022 Orders Only Lopez Salmon DO Work Phone: Neurology Comment on above: Neck pain (Primary D x) 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 (Primary Dx) Start: 03-19-2022 End: 03-19-2022 Patient encounter procedure Alberto Monsalve DO Work Phone: Spine Medicine Comment on above: Cervical disc disord er with radiculopathy (Primary Dx); Weakness of right upper extremity Start: 03-15-2022 Orders Only Meño Cadena DO Work Phone: Endovascular Center Comment on above: Right arm weakness ( Primary Dx) Start: 03-13-2022 End: 03-14-2022 ambulatory GABBY Junior GALEASFLY Facility: Start: 12-19-2021 End: 12-19-2021 Patient encounter procedure Micah Son DO Work Phone: Orthopaedics Comment on above: 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 (Primary Dx) Start: 12-15-2021 Telephone encounter Nayan Yan DO Work Phone: [address] [place] [address] Comment on above: Results Start: 12-08-2021 End: 12-08-2021 ambulatory [facility] Work Phone: Cardiology Comment on above: Event (Zio patch) Start: 12-08-2021 End: 12-08-2021 Patient encounter procedure John Dc MD Work Phone: Cardiology Comment on above: AF (paroxysmal atria l fibrillation) (HCC) (Primary Dx) Start: 07-07-2021 End: 07-07-2021 ambulatory Debbie Ramirez Other [employer] Other Start: 07-07-2021 Nursing evaluation o f patient and report Debbie Ramirez [facility] Start: 10-02-2018 Patient encounter procedure [facility] Start: 05-19-2018 Patient encounter procedure [facility] Start: 03-31-2018 End: 04-03-2018 Patient encounter procedure [facility] Start: 02-24-2018 Patient encounter procedure [facility] Procedures Date Procedure Procedure Detail Performing Clinician Start: 11-05-2023 CBC + DIFF Mitch beebe MD Work Phone: Start: 11-05-2023 Comprehensive metabo lic panel Mitch Garcia MD Work Phone: Start: 10-22-2023 Blood count complete auto&auto difrntl wbc Cathy M Yokasta PURCELL Work Phone: Start: 07-29-2023 Lymphatics & lymph n odes imaging Heather Castillo MD Work Phone: Start: 07-23-2023 Us lmtd joint/oth no nvasc xtr strux r-t w/img Heather Castillo MD Work Phone: Start: 05-14-2023 Adult depression scr eening assessment Kalyani Rachel CMA Start: 04-24-2023 Lipid 1996 panel - S [place] or Plasma Milton Mcintosh RN Start: 02-11-2023 Colonoscopy Milton torres RN Start: 09-06-2022 Arthrocentesis aspir &/inj major jt/bursa w/us Micah D Say DO Work Phone: Start: 08-12-2022 Urine culture PHYSICIAN NO FAMILY Start: 03-29-2022 Us soft tissue head & neck real time imge docm Meño Cadena DO Work Phone: Start: 02-08-2022 Mammography Lopez gurrola DO Work Phone: Start: 12-19-2021 End: 12-19-2021 Arthrocentesis aspir&/inj major jt/bursa w/us Micah Avis Son DO Work Phone: Start: 09-12-2020 Mammography Meño rod DO Work Phone: Start: 03-19-2018 Antibody screen DONTE MARCOS Comment on above: Performed By: #### T [id number] #### [place] [id number] Start: 07-23-2016 Colonoscopy John torres MD Work Phone: Start: 01-10-2010 Adult depression scr eening assessment John Dc MD Work Phone: Plan of Treatment Date Care Activity Detail Author Start: 04-24-2028 Lipid 1996 panel - Serum or Plasma Lipid Screening [facility] Start: 04-24-2028 Lipid panel Lipid Screening [facility] Start: 02-12-2028 Colonoscopy Colonoscopy [facility] Start: 02-12-2028 Colorectal Cancer Screening Colorectal Cancer Screening [facility] Start: 02-12-2028 Screening for malignant neoplasm of colon [facility] Start: 11-09-2027 LIPID SCREEN LIPID SCREEN [facility] Start: 11-04-2026 Diabetes Screening Diabetes Screening [facility] Start: 10-22-2026 Diabetes Screening Diabetes Screening [facility] Start: 09-20-2026 Diabetes Screening Diabetes Screening [facility] Start: 07-26-2026 Diabetes Screening Diabetes Screening [facility] Start: 04-24-2026 Diabetes Screening Diabetes Screening [facility] Start: 11-08-2025 DIABETES SCREEN DIABETES SCREEN [facility] Start: 03-16-2025 DIABETES SCREEN DIABETES SCREEN [facility] Start: 03-15-2025 DIABETES SCREEN DIABETES SCREEN [facility] Start: 10-09-2024 Adult BMI Screening Adult BMI Screening [facility] Start: 10-09-2024 Tobacco Screening Tobacco Screening [facility] Start: 09-18-2024 Adult BMI Screening Adult BMI Screening [facility] Start: 08-07-2024 Adult BMI Screening Adult BMI Screening [facility] Start: 08-07-2024 Tobacco Screening Tobacco Screening [facility] Start: 05-19-2024 End: 05-19-2024 Patient encounter procedure 05/19/2024 3:30 PM EDT Office Visit [facility] [address] [place] [address] [place] [address] Sunny Jenkins MD [address] [facility] [place], [place] [address] [facility] Start: 05-14-2024 Depression Screening Depression Screening [facility] Start: 05-14-2024 Fall Risk Screening Fall Risk Screening [facility] Start: 05-14-2024 Medicare Annual Wellness Visit Medicare Annual Wellness Visit [facility] Start: 04-30-2024 Screening for malignant neoplasm of breast Mammogram Screening [facility] Start: 11-14-2023 End: 11-14-2023 Patient encounter procedure 11/14/2023 3:00 PM EDT Office Visit [facility] [address] [facility] [facility] [address] Leo Gerard, SPRAYING MACHINE OPERATOR-ANESTHESIOLOGY RESIDENT [address], [place] [address] [facility] Start: 11-11-2023 End: 02-10-2024 CBC W Auto Differential panel - Blood CBC + DIFF Lab Routine Chest pain, unspecified type Invasive lobular carcinoma of breast in female (HCC) Generalized edema Expected: 11/11/2023, Expires: 02/10/2024 [facility] Work Phone: Comment on above: Expected: 11/11/2023, Expires: Start: 11-11-2023 End: 02-10-2024 Comprehensive metabolic 2000 panel - Serum or Plasma COMP METABOLIC PANEL Lab Routine Chest pain, unspecified type Invasive lobular carcinoma of breast in female (HCC) Generalized edema Expected: 11/11/2023, Expires: 02/10/2024 [facility] Work Phone: Comment on above: Expected: 11/11/2023, Expires: Start: 11-05-2023 End: 02-04-2024 CBC W Auto Differential panel - Blood [facility] Work Phone: Comment on above: Expected: 11/05/2023 (Approximate), Expi res: 02/04/2024 Start: 11-05-2023 End: 02-04-2024 Comprehensive metabolic 2000 panel - Serum or Plasma COMP METABOLIC PANEL Lab Routine Invasive lobular carcinoma of breast in female (HCC) Expected: 11/05/2023 (Approximate), Expires: 02/04/2024 [facility] Work Phone: Comment on above: Expected: 11/05/2023 (Approximate), Expi res: 02/04/2024 Start: 10-08-2023 End: 10-08-2023 Patient encounter procedure 10/08/2023 9:00 AM EST Appointment [facility] [place] [address] Arrived [facility] Comment on above: Arrived Start: 08-26-2023 Advance Directive Discussion Advance Directive Discussion [facility] Start: 08-26-2023 Depression Assessment Depression Assessment [facility] Start: 04-26-2023 Covid-19 Vaccine () Covid-19 Vaccine () [facility] Start: 04-26-2023 Influenza vaccination [facility] Start: 02-28-2023 [facility] Start: 02-28-[address] [facility] Start: 02-08-2023 Mammography [facility] Start: 02-08-2023 Screening for malignant neoplasm of breast Mammogram Screening [facility] Start: 02-03-2023 COVID-19 VACCINE (4 - Booster for Romina series) COVID-19 VACCINE (4 - Booster for Romina series) [facility] Start: 08-26-2022 ADVANCE DIRECTIVE DISCUSSION ADVANCE DIRECTIVE DISCUSSION [facility] Start: 08-26-2022 DEPRESSION ASSESSMENT DEPRESSION ASSESSMENT [facility] Start: 04-26-2022 Influenza vaccination [facility] Start: 11-16-2021 COVID-19 VACCINE (3 - Booster for Romina series) COVID-19 VACCINE (3 - Booster for Romina series) [facility] Start: 09-13-2021 COVID-19 VACCINE (3 - Booster for Romina series) COVID-19 VACCINE (3 - Booster for Romina series) [facility] Start: 09-12-2021 Mammography MAMMOGRAM [facility] Start: 08-26-2021 ADVANCE DIRECTIVE DISCUSSION ADVANCE DIRECTIVE DISCUSSION [facility] Start: 07-23-2021 Colonoscopy COLONOSCOPY [facility] Start: 07-23-2021 COLORECTAL CANCER SCREENING COLORECTAL CANCER SCREENING [facility] Start: 04-02-2021 DIABETES SCREEN DIABETES SCREEN [facility] Start: 11-04-2019 BONE DENSITY BONE DENSITY [facility] Start: 11-04-2019 Bone Density Screening Bone Density Screening [facility] Start: 11-04-2019 PNEUMOVAX AGE 65 AND OVER WITH 5YR LOOKBACK (#1) PNEUMOVAX AGE 65 AND OVER WITH 5YR LOOKBACK (#1) [facility] Start: 11-04-2019 Screening for osteoporosis Bone Density Screening [facility] Start: 2014 RSV Vaccine (1 - 1-dose 60+ series) RSV Vaccine (1 - 1-dose 60+ series) [facility] Start: 01-10-2011 Adult depression screening assessment DEPRESSION SCREENING [facility] Start: 2004 SHINGRIX VACCINE (1 of 2) SHINGRIX VACCINE (1 of 2) [facility] Start: 11-04-1999 COLOGUARD (FIT-DNA) COLOGUARD (FIT-DNA) [facility] Start: 11-04-[address] COLONOGRAPHY [facility] Start: 11-04-1999 FECAL OCCULT BLOOD FECAL OCCULT BLOOD [facility] Start: 11-04-1999 LIPID SCREEN LIPID SCREEN [facility] Start: 11-04-1999 Screening for malignant neoplasm of colon [facility] Start: 11-04-1999 SIGMOIDOSCOPY SIGMOIDOSCOPY [facility] Start: 1994 Mammography MAMMOGRAM [facility] Start: 1994 Screening for malignant neoplasm of breast Mammogram Screening [facility] Start: 1984 Zoledronic acid therapy ALPHA-1 ANTITRYPSIN DEFICIENCY SCREENING [facility] Start: 1973 DTaP,Tdap and Td Vaccines (1 - Tdap) DTaP,Tdap and Td Vaccines (1 - Tdap) [facility] Start: 1973 Urine microalbumin profile [facility] Start: 1972 Adult BMI Follow Up Plan Adult BMI Follow Up Plan [facility] Start: 1972 ANNUAL PCP TEAM CHRONIC DISEASE VISIT ANNUAL PCP TEAM CHRONIC DISEASE VISIT [facility] Start: 1972 BP CONTROLLED (<130/80) BP CONTROLLED (<130/80) [facility] Start: 1972 HEPATITIS C SCREENING HEPATITIS C SCREENING [facility] Start: 1972 Hepatitis C screening Hepatitis C Screening [facility] Start: 1972 SPIROMETRY SPIROMETRY [facility] Start: 1960 PNEUMOCOCCAL: 65+ (1 - PCV) PNEUMOCOCCAL: 65+ (1 - PCV) [facility] Bacteria identified in Urine by Culture Urine Culture [facility] End: 12-04-2024 CTA Pulmonary arteries for pulmonary embolus W contrast IV CT CHEST W IVCON PE Radiology STAT Chest pain, unspecified type 1 Occurrences starting 11/05/2023 until 12/04/2024 [facility] Work Phone: Comment on above: 1 Occurrences starting 11/05/2023 until 12/04/2024 End: 12-08-2022 Echocardiography ECHO Cardiology Routine AF (paroxysmal atrial fibrillation) (HCC) 1 Occurrences starting 12/08/2021 until 12/08/2022 [facility] Work Phone: Comment on above: 1 Occurrences starting 12/08/2021 until 12/08/2022 End: 09-19-2023 EGD DIAGNOSTIC EGD DIAGNOSTIC Endoscopy Routine Gastroesophageal reflux disease, unspecified whether esophagitis present Hiatal hernia 1 Occurrences starting 09/19/2022 until 09/19/2023 [facility] Work Phone: Comment on above: 1 Occurrences starting 09/19/2022 until 09/19/2023 OUTSIDE VENDOR CARDI AC OUTPATIENT EXTENDED RHYTHM RECORDING (WITHOUT TELEMETRY) OUTSIDE VENDOR CARDIAC OUTPATIENT EXTENDED RHYTHM RECORDING (WITHOUT TELEMETRY) Holter Routine AF (paroxysmal atrial fibrillation) (HCC) Ordered: 12/08/2021 [facility] Work Phone: Comment on above: Ordered: 12/08/2021 Patient Education [facility] Need le Biopsy, Thyroid [facility] Work Phone: End: 09-19-2023 Screening colonoscopy COLONOSCOPY SCREENING Endoscopy Routine Screening for colon cancer 1 Occurrences starting 09/19/2022 until 09/19/2023 [facility] Work Phone: Comment on above: 1 Occurrences starting 09/19/2022 until 09/19/2023 End: 08-15-2024 US AXILLA ONLY LEFT US AXILLA ONLY LEFT Radiology Routine Malignant neoplasm of left female breast, unspecified estrogen receptor status, unspecified site of breast (HCC) 1 Occurrences starting 07/17/2023 until 08/15/2024 [facility] Work Phone: Comment on above: 1 Occurrences starting 07/17/2023 until 08/15/2024 US HIP-INJECTION LT (POC) KELLY USE ONLY US HIP-INJECTION LT (POC) KELLY USE ONLY Imaging Procedures Routine Primary osteoarthritis of left hip Ordered: 09/06/2022 [facility] Work Phone: Comment on above: Ordered: 09/06/2022 Us soft tissue head & neck real time imge docm US THYROID/PARATHYROID Radiology Routine Thyroid nodule 03/29/2022 4:34 PM EDT [facility] Work Phone: [facility] Immunizations Immunization Date Immunization Notes Care Provider Fa cility 12-09-2022 COVID-19, mRNA, LNP- S, PF, 100mcg/0.5mL Dose Kalyani Rachel [facility] 04-28-2022 zoster vaccine recombinant Kalyani Rachel [facility] 12-31-2021 pneumococcal polysaccharide vaccine, 23 valent Kalyanitesfaye Rachel [facility] 02-14-2021 pneumococcal conjuga te vaccine, 13 valent Kalyani Virginie [facility] 02-14-2021 zoster vaccine recombinant Kalyanitesfaye Rachel [facility] 08-04-2016 pneumococcal conjuga te vaccine, 13 valent Kalyani Virginie [facility] Payers Date Payer Category Payer Self-pay [id number] 2021 Unknown [employer] [facility] MEDICARE SUPPLEMENT [id number] 2021-Present [phone] [id number] [place] [address] [facility] [id number] 2021 Unknown [id number] 2021 Unknown [id number] 2019 Medicare MEDICARE MEDICAR E A AND B [id number] 2019-Present [phone] [address] [address] [place] [address] Medicare [id number] 2019 Medicare [id number] 1959 Medicare [id number] 1959 Unknown [id number] 1954 Unknown [id number] 1954 Unknown [id number] 1954 Unknown [id number] 1954 Unknown [id number] 1954 Unknown [id number] 1954 Unknown [id number] 1954 Unknown [id number] Unknown [id number] Unknown Hardik BC/BS [id number] Unknown [id number] Unknown [id number] Unknown [id number] Unknown [id number] Social History Date Type Detail Facility Tobacco smoking stat us KYIS Unknown if ever smoked [facility] Start: 1955 Sex Assigned At Female F [facility] Start: 04-03-2022 End: 04-02-2023 Tobacco smoking status NHIS Never smoked tobacco [facility] Start: 12-08-2021 End: 10-09-2023 Alcohol intake Current drinker of alcohol (finding) [facility] Start: 03-19-2018 History SDOH Alcohol Comment socially- couple times per year [facility] Start: 1955 Sex Assigned At Not on file [facility] Start: 11-28-2021 End: 04-03-2022 Exposure to SARS-CoV-2 (event) Not sure [facility] Start: 10-06-2020 End: 07-12-2023 Sex Assigned At [facility] Start: 03-14-2022 History SDOH Financial 5 [facility] Start: 03-14-2022 History SDOH Food Worry 1 [facility] Start: 03-14-2022 History SDOH Transpo rt Med 2 [facility] Start: 04-03-2022 End: 04-02-2023 Tobacco use and exposure Smokeless tobacco non-user [facility] Work Phone: Start: 10-06-2020 End: 07-12-2023 History of Social function [facility] How hard is it for y ou to pay for the very basics like food, housing, medical care, and heating Not hard at all [facility] (I/We) worried mignon er (my/our) food would run out before (I/we) got money to buy more. Never true [facility] In the past 12 month s, was there a time when you were not able to pay the mortgage or rent on time? No [facility] Start: 04-02-2023 Alcohol Comment rare [facility] Medical Equipment Procedure Code Equipment Code Equipment Origin al Text Equipment Identifier Dates Cement Simplex P Bone Radiopaque Full Dose - [id number] Start: 03-31-2018 Cement Simplex P Bone Radiopaque Full Dose - [id number] Start: 03-31-2018 Cement Simplex P Bone Radiopaque Full Dose - [id number] Start: 03-31-2018 Stem Triathlon 1 2mm Cocr 50mm Femoral Cemented Total Stabilized Knee - [id number] Start: 03-31-2018 Insert Triathlon 4 X3 9mm Tibial Posterior Stabilize Knee - [id number] Start: 03-31-2018 Component Triath lito 33mm X3 9mm Patellar Symmetric Knee Superior - [id number] Start: 03-31-2018 Insert Triathlon 4 X3 11mm Tibial Bearing Posterior Stabilize Knee - [id number] Start: 03-31-2018 Component Triath lito 33mm X3 9mm Patellar Symmetric Knee Superior - [id number] Start: 03-31-2018 Component Triath lito 4 Femoral Cemented Posterior Stabilize Knee Right - [id number] Start: 03-31-2018 Component Triath lito 4 Femoral Cemented Posterior Stabilize Knee Left - [id number] Start: 03-31-2018 Baseplate Triath lito 4 [place] Cocr Tibial Total Stabilize Cemented Knee - [id number] Start: 03-31-2018 Baseplate Triath lito 4 [place] Cocr Tibial Total Stabilize Cemented Knee - [id number] Start: 03-31-2018 Screw Lcp 6.5mm 8mm Partial Thread Stainless Steel 45mm 32mm Bone Large - [id number] Start: 03-31-2018 Washer Lcp 13mm 6.6mm Stainless Steel Orthopedic 4.5-7.3mm Screw Nonsterile - [id number] Start: 03-31-2018 Screw Lcp 6.5mm 8mm Full Thread Stainless Steel 35mm Bone Large Hexagonal - [id number] Start: 03-31-2018 Goals Date Patient Goal Desired Activity /State Clinical Notes 06-28-2021 to 11-11-2023 Telephone Encounter - Yvonne Baumann RN - 11/11/2023 3:51 PM EDTTelephone Encounter - Yvonne Baumann RN - 11/11/2023 3:00 PM EDTTelephone Encounter - Will CorralpalomoKELLEY - 11/11/2023 9:11 AM EDT Note Date & Type Note Facility 11-11-2023 Miscellaneous Notes Spoke with patient regarding her hospitalization. Pt states she was able to get eliquis filled from a month free voucher. Pt states her monthly copay will be >$500. Pt agreeable for a script to be sent to our pharmacy to see what they're able to do. Please sign script for pt Thanks Yvonne Baumann RN documented in this encounter [facility] 11-11-2023 Miscellaneous Notes DISCHARGE CALL BACK Today's date: November 11, 2023 Notified of Pt discharge by: previous telephone encounter Patient discharged on 11/08/23 from [facility] to Home Primary Cancer Diagnosis: Breast Cancer Admitting Diagnosis: PE, acute on chronic diastolic hear failure Discharge Summary/SBAR reviewed: Yes Handoff Discussed with Transitional Drop Count Associate: No, unavailable Psychosocial Risk Factors: None If patient discharged to SNF/Rehab Facility, phone call completed to reinforce discharge instructions and follow up: N/A Call Disposition: Called patient and spoke with patient Patient identified by name and date of . YES Patient with symptom issues: Yes, continues to have quite a bit of shortness of breath and her heart races at times. Pt states she feels this is maybe a little bit better, but not much. States she feels she was discharged way too soon. Pain: No=0 (pain 0 on a scale of 0-10). Is patient followed by Palliative Medicine? No Palliative Medicine follow up: N/A Any new barriers to care identified? No Any new referrals needed? No Social Work Follow-Up visit scheduled? No Does the patient need interventions yes or same day appointment: No will send new script of eliquis to pharmacy so they can begin authorization process. MEDICATION ADHERENCE Patient discharged with prescriptions? Yes, eliquis and spironolactone Discharge prescriptions filled: Yes Patient understands when to take prescriptions: Yes FOLLOW UP Patient scheduled for follow-up appointment within 5 business days of discharge? No, Other: previous appointment already scheduled for 11/19/23. Dr Garcia will not be in the office until 11/18. Patient reminded of follow-up appointment with [facility] provider, Dr Garcia on 11/19/23: Yes Discussed with pt how she is feeling as stated above. Pt will continue to monitor her symptoms and is aware that she will need to go back to the ER if her shortness of breath worsens at all. Pt has PCP follow up appointment on this week. PATIENT EDUCATION / REINFORCEMENT Patient verbalizes understanding of when to seek Medical Attention? YES Patient verbalizes understanding of after hours and weekend phone number? YES Yvnone Baumann RN documented in this encounter [facility] 11-11-2023 Miscellaneous Notes D/C summary scanned. Pt has been discharged. Nel: can you get d/c summary please. Thanks Yvonne Baumann RN Spoke with Harlan, bedside nurse. He states pt is doing well and is asking about a couple of meds. Med list reviewed with nurse. Nurse states pt did not receive any steroids yesterday or today post chemo infusion. No further questions Yvonne Baumann RN Spoke with Nery, bedside nurse who states pt is doing well. Pt currently on a heparin drip. Pt's sats are normal on room air. Denies any concerns at this time. Yvonne Baumann RN documented in this encounter [facility] 11-11-2023 Miscellaneous Notes Patient requesting refill. Patient stated [facility] requested her to double her current dose of 20 mg. Minal called to inform she is out of medication and needs this today. documented in this encounter [facility] 11-11-2023 Telephone encounter Note Patient requesting refill. Patient stated [facility] requested her to double her current dose of [address] [facility] 11-11-2023 Telephone encounter Note Minal called to inform she is out of medication and needs this today. [facility] 11-06-2023 Miscellaneous Notes ----- Message from Sunny Jenkins MD sent at 11/05/2023 8:24 PM EDT ----- Abnormal result. CT Angio concerning ofr segmental Pulmonary Embolism, patient should initiate Eliquis for a minimum of 3 months WALLACE. Please call and schedule appointment with any provider to review. I will prescribe the medicine which patient should start. SUNNY JENKINS MD Called patient and informed her. She stated understanding and also informed us she is currently in [facility] and was admitted. The nurse was in the room at the time I explained results and they went ahead and scheduled a SHEBA and at that time would like to discuss results. documented in this encounter [facility] 11-06-2023 Telephone encounter Note ----- Message from Sunny Jenkins MD sent at 11/05/2023 8:24 PM EDT ----- Abnormal result. CT Angio concerning ofr segmental Pulmonary Embolism, patient should initiate Eliquis for a minimum of 3 months WALLACE. Please call and schedule appointment with any provider to review. I will prescribe the medicine which patient should start. SUNNY JENKINS MD [facility] 11-06-2023 Telephone encounter Note Called patient and informed her. She stated understanding and also informed us she is currently in [facility] and was admitted. The nurse was in the room at the time I explained results and they went ahead and scheduled a SHEBA and at that time would like to discuss results. 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 Yvonne Baumann RN Dr Garcia received a call from radiologist stating pt has a PE on scan. Dr Garcia would like to start pt on Eliquis Please sign pending script. Yvonne Baumann RN documented in this encounter [facility] 11-05-2023 Note [facility] 11-05-2023 History of Present illness Narrative PATIENT NAME: Minal Caputo [facility] NO.: [id number] ATTENDING PHYSICIAN: Mitch Garcia MD DATE OF SERVICE: November 05, 2023 Some of the elements of this note have been copied from Dr. Garcia's previous progress note dated 10/22/2203. All the information has been reviewed carefully. Dear Dr. Mendoza Yang here is an update on a follow up visit on female Minal Caputo at the clinic October 22, 2023. Diagnosis: L Breast Cancer: pT3,N3,M0, Grade 2 ILC, 6.3 cm, LVI present, Margins Negative, ER 80%, AR 5% and Her-2 IHC-0. Germline testing 07/2023: A variant of uncertain significance (VUS) was detected in BAP1 (c.[id number]>T). ECHO 08/2023: EF 55-60% and normal wall motion. Treatment History: July 29, 2023: Left mastectomy and left axillary sentinel lymph node biopsy. Left axillary lymph node dissection, left axillary lymphatic or venous bypass, left axillary immediate lymphatic reconstruction with 2 lymphatics via an intussusception technique, September 04, 2023. DDAC started 10/22/2023. HPI: Minal Caputo is a 68 year old year old female here for follow up and continued treatment. Briefly, Minal felt a lump in her breast few months prior to her presentation. She did undergo a mammogram in January 2022 which demonstrated increased distortion about the left central breast, current area of asymmetry appeared to have increased. Last exam prior to that was in August 2020. No significant adenopathy was seen and an MRI and potential biopsy was recommended. A breast MRI was recommended. Left breast sonogram demonstrated distortion and shadowing 2 x 3 cm area at 4:00 location corresponding to the mammographic finding. Patient states that she had other things going on and since she had previous mammograms felt that no further workup was needed, until she felt a lump in her left breast. This led to additional workup including a diagnostic mammogram in April 2023. This demonstrated a persistent distortion deep central breast with greater fatty replacement. Patient underwent a left breast biopsy June 2023 which demonstrated a grade 1 invasive lobular carcinoma ER 80%, AR 5% and HER2/akash with IHC 0. A PET scan was subsequently completed on July 08, 2023 which demonstrated irregular FDG avid mass in the left breast. There are at least 3 FDG avid metastatic lymph nodes in the left axilla. There were no additional evidence of distant metastasis. An MRI of the breast was attempted but the examination was terminated. Of note a MammaPrint was also sent on the original biopsy which returned as luminal type A, low risk based on MammaPrint. The patient elected to transfer her care to the [facility] and underwent a L breast mastectomy and SLN biopsy on 07/29/2023/ Path demonstrated an invasive lobular carcinoma, grade 2, 6.3 cm, negative margins. Multifocal ADH, 4 sentinel lymph nodes 3 with macrometastasis and extranodal extension and 1 with an isolated tumor cell. After discussion the patient underwent completion left axillary dissection on 06/14/2024 and 25 out of 33 lymph nodes were positive for metastatic carcinoma, largest tumor deposit 16 mm with extranodal extension. Additional left breast skin without any abnormalities. Interval History: Minal Caputo returns for scheduled follow-up and cycle 2 Adriamycin and Cytoxan. After her last treatment she states that she had fevers for 10 to 11 days. Her highest fever being 103.5. She noticed increasing shortness of breath. Intermittent headaches. Bloating with constipation and takes medical last. She has heartburn. She takes Nexium twice daily. Today she questions why I am going through this . PAST MEDICAL HISTORY Diagnosis Date Atrial fibrillation (HCC) GERD (gastroesophageal reflux disease) Hiatal hernia HLD (hyperlipidemia) HTN (hypertension) Obesity, unspecified Other and unspecified hyperlipidemia Scoliosis Spinal stenosis, unspecified region other than cervical Social History Tobacco Use Smoking status: Never Smokeless tobacco: Never Vaping Use Vaping Use: Never used Substance Use Topics Alcohol use: Yes Comment: socially- couple times per year Drug use: Never FAMILY HISTORY Problem Relation Age of Onset Hypertension Mother Lipids Mother Cancer Father prostate Heart Father chf Lipids Father Hypertension Father Prostate Cancer Father 70 Rectal Cancer Sister 71 Stroke Sister 28 Breast Cancer Paternal Aunt 60 - 69 Difficulty with anesthesia No Family History Past medical, social and family history reviewed without any changes. REVIEW OF SYSTEMS General: No weight loss, malaise or fevers. No night sweats. HEENT: Negative for headaches, No changes in hearing or vision, no nose bleeds or other nasal problems. Respiratory: Negative for cough, wheezing and shortness of breath. Cardiovascular: Negative for chest pain, leg swelling and palpitations. GI: Negative for abdominal discomfort, blood in stools or black stools and change in bowel habits. : Negative for dysuria, frequency and incontinence. Musculoskeletal: Negative for joint pain or swelling, back pain, and muscle pain. Skin: Negative for lesions, rash, and itching. Hematology/Lymphology: Negative for prolonged bleeding, bruising easily, and swollen nodes. Neuro: Negative for numbness or tingling of hands/feet. No weakness. PHYSICAL EXAMINATION: BP 168/78 Pulse 84 Temp (Src) 97.3 (Temporal) Resp 24 Ht 5' .551 (1.54m) Wt 272 lb 14.9 oz (123.8kg) SpO2 92% LMP 08/26/2006 BMI 52.34 kg/(m^2). General appearance:ECOG PERFORMANCE STATUS: 0- Fully active, able to carry on all pre-disease performance w/o restriction. Patient in NAD. Exam limited to gross visualization where appropriate. Gen.: This is an age-appropriate patient in no acute distress. Head: Appears atraumatic with no visible lesions. Eyes: Pupils equally round and reactive to light, extraocular muscles are intact. Neck: Supple. Respiratory: Appears to be respiring comfortably. Neurologic: Nonfocal to gross visualization. Alert and oriented 3. Psychiatric: No evidence of inappropriate anxiety or depression. Skin: Visible areas of skin without rash, lesions, wounds or petechiae. LABS: Glucose (mg/dL) Date Value 11/05/2023 186 04/02/2018 129 Potassium (mmol/L) Date Value 11/05/2023 4.1 04/02/2018 4.1 Sodium (mmol/L) Date Value 11/05/2023 142 04/02/2018 136 Chloride (mmol/L) Date Value 11/05/2023 105 04/02/2018 100 CO2 (mmol/L) Date Value 11/05/2023 22 04/02/2018 25 Creatinine (mg/dL) Date Value 11/05/2023 0.90 04/02/2018 0.83 BUN (mg/dL) Date Value 11/05/2023 12 04/02/2018 16 Anion Gap (mmol/L) Date Value 11/05/2023 15 04/02/2018 11 Calcium (mg/dL) Date Value 04/02/2018 8.2 Calcium, Total (mg/dL) Date Value 11/05/2023 9.0 Protein, Total (g/dL) Date Value 11/05/2023 6.4 03/19/2018 6.8 Albumin (g/dL) Date Value 11/05/2023 3.9 03/19/2018 4.2 Bilirubin, Total (mg/dL) Date Value 11/05/2023 0.3 03/19/2018 0.5 Alkaline Phosphatase (U/L) Date Value 11/05/2023 124 03/19/2018 107 AST (U/L) Date Value 11/05/2023 18 03/19/2018 27 ALT (U/L) Date Value 11/05/2023 29 03/19/2018 38 WBC Date Value Ref Range Status 11/05/2023 6.96 3.70 - 11.00 k/uL Final RBC Date Value Ref Range Status 11/05/2023 3.87 (L) 3.90 - 5.20 m/uL Final Hemoglobin Date Value Ref Range Status 11/05/2023 11.9 11.5 - 15.5 g/dL Final Hematocrit Date Value Ref Range Status 11/05/2023 36.1 36.0 - 46.0 % Final MCV Date Value Ref Range Status 11/05/2023 93.3 80.0 - 100.0 fL Final MCH Date Value Ref Range Status 11/05/2023 30.7 26.0 - 34.0 pg Final MCHC Date Value Ref Range Status 11/05/2023 33.0 30.5 - 36.0 g/dL Final RDW-CV Date Value Ref Range Status 11/05/2023 14.6 11.5 - 15.0 % Final Platelet Count Date Value Ref Range Status 11/05/2023 382 150 - 400 k/uL Final MPV Date Value Ref Range Status 11/05/2023 10.3 9.0 - 12.7 fL Final Abs Neut (Segs + Bands) Date Value Ref Range Status 11/05/2023 4.45 1.45 - 7.50 k/uL Final Lymphocytes % Date Value Ref Range Status 11/05/2023 26.1 % Final Abs Lymph (Normal + Reactive) Date Value Ref Range Status 11/05/2023 1.82 1.00 - 4.00 k/uL Final Monocytes % Date Value Ref Range Status 11/05/2023 5.4 % Final Abs [place] Date Value Ref Range Status 11/05/2023 0.38 <0.87 k/uL Final Eosin% Date Value Ref Range Status 11/05/2023 0.9 % Final Abs Eosin Date Value Ref Range Status 11/05/2023 0.06 <0.46 k/uL Final Basophils % Date Value Ref Range Status 11/05/2023 0.0 % Final Abs Baso Date Value Ref Range Status 11/05/2023 0.00 <0.11 k/uL Final PATH: Left Breast Lumpectomy and SLN Biopsy 07/2023: INVASIVE CARCINOMA OF THE BREAST: Resection 8th Edition - Protocol posted: 11/14/2022 INVASIVE CARCINOMA OF THE BREAST: EXCISION - All Specimens SPECIMEN Procedure Total mastectomy Specimen Laterality Left TUMOR Tumor Site Lower outer quadrant to central Histologic Type Invasive lobular carcinoma Histologic Grade (Angela Histologic Score) Glandular (Acinar) / Tubular Differentiation Score 3 Nuclear Pleomorphism Score 2 Mitotic Rate Score 1 Overall Grade Grade 2 (scores of 6 or 7) Tumor Size Greatest dimension of largest invasive focus (Millimeters): At least 63 mm Tumor Focality Single focus of invasive carcinoma Ductal Carcinoma In Situ (DCIS) Not identified Lymphatic and / or Vascular Invasion Present Focal Microcalcifications Present in non-neoplastic tissue Present in atypical ductal hyperplasia Treatment Effect in the Breast No known presurgical therapy MARGINS Margin Status for Invasive Carcinoma All margins negative for invasive carcinoma Distance from Invasive Carcinoma to Closest Margin 5 mm Closest Margin(s) to Invasive Carcinoma Posterior REGIONAL LYMPH NODES Regional Lymph Node Status Tumor present in regional lymph node(s) Number of Lymph Nodes with Macrometastases 3 Number of Lymph Nodes with Micrometastases 0 Number of Lymph Nodes with Isolated Tumor Cells 1 Size of Largest Charlie Metastatic Deposit 18 mm Extranodal Extension Present, greater than 2 mm Total Number of Lymph Nodes Examined (sentinel and non-sentinel) 4 Number of [place] Nodes Examined 4 pTNM CLASSIFICATION (AJCC 8th Edition) Reporting of pT, pN, and (when applicable) pM categories is based on information available to the pathologist at the time the report is issued. As per the AJCC (Chapter 1, 8th Ed.) it is the managing physician s responsibility to establish the final pathologic stage based upon all pertinent information, including but potentially not limited to this pathology report. pT Category pT3 pN Category pN1a N Suffix (sn) Left Axillary Dissection 08/2023: A. Left axilla, dissection of axillary contents: - 25 out of 33 lymph nodes positive for metastatic carcinoma (25/33). - Largest tumor deposit measures 16 mm in greatest dimension. - Extranodal extension is present (greater than 2 mm). - Changes consistent with prior procedure site. Imaging: PET Scan 06/2023: * FDG avid left breast mass compatible with known primary breast malignancy with at least three mildly FDG avid metastatic lymph nodes in the left axilla. * No evidence of FDG avid distant metastatic disease. Assessment and Plan: Minal Caputo is a 68 year old year old female here for follow up and continued treatment. Postmenopausal female with a T3, N3, M0, invasive lobular carcinoma, grade 2, ER 80%, AR 5% and HER2/akash negative, IHC 0, cancer of the left breast. LVI was present. 28/37 lymph nodes were involved. She initially underwent a mastectomy and sentinel lymph node biopsy in July 2023 and had a completion axillary dissection on the left side in August 2023. Stated that at this time we would recommend adjuvant chemotherapy with Adriamycin and cyclophosphamide followed by weekly paclitaxel. We had a lengthy discussion in regards to hormonal therapy plus CDK 4 6 inhibitors as well. We also discussed the role of zoledronic acid. Here to continue DDAC and discussed adverse events in detail and she hasdsigned consent and proceed with therapy. Dex for delayed nausea as well. Will proceed with cycle 2 Adriamycin and Cytoxan. We will see her back in 2 weeks for follow-up and continued treatment. I discussed with Dr. Garcia patient's concerns regarding continued treatment. For the patient's intermittent fevers will prescribe Cipro 500 mg twice daily x 7 days. For her increasing shortness of breath we will also order a CT scan of her chest to rule out PE. Thank you for the kind referral. If there are any questions and or concerns please do not hesitate [facility] [phone]. Brianna eRnner APRN.NEY Hematology/Medical Oncology [facility] CC: Sunny Jenkins MD I spent a total of 30 minutes on the date of the service which included preparing to see the patient, [id number] patient care, completing clinical documentation, obtaining and/or reviewing separately obtained history, performing a medically appropriate examination, counseling and educating the patient/family/caregiver, ordering medications, tests, or procedures, independently interpreting results (not separately reported), and communicating results to the patient/family/caregiver. documented in this encounter [facility] 11-05-2023 Nurse Note Patient is very winded. She states that she is all the time now. Started a few days ago. documented in this encounter [facility] 11-01-2023 Miscellaneous Notes She requested a refill on her losartan, also. Which is not on the patient list. documented in this encounter [facility] 11-01-2023 Telephone encounter Note She requested a refill on her losartan, also. Which is not on the patient list. [facility] 10-24-2023 Note [facility] 10-24-2023 History of Present illness Narrative Plastic Surgery Note CC: Post op This visit was conducted as a virtual visit via phone call with the patient's consent. HPI: Minal is a 67 year old female, s/p: Date of Surgery: 09/04/2023 Surgery: Left axillary immediate lymphatic reconstruction with 2 lymphatics via an intussusception 0.4mm and 0.3 mm lymphatic into 1mm vein flow confirmed with milk test 22 modifier given the added complexity via the small size as well as surgical duration for these procedures as well as given the patient's body habitus. Adjacent tissue rearrangement left chest 34x4cm Patient states she went to lymphedema therapy a few weeks ago and the size comparison between her two arms were only slightly different per their measurements. Patient is having a hard time wearing her blank wrap, next week she is going to get measured for a lymphedema sleeve at therapy. Patient denies any heaviness in her arm. Patient has chemo treatment November 04, unknown when radiation is going to start. Time post op: 7 weeks S: Pain control is good Denies any heaviness feeling of arm O: Limited due to virtual visit Incisions seem to be healing well LMP 08/26/2006 (Approximate) A/P: -Expected post operative course -Patient to follow up with lymphedema therapist in a few months -Recommended patient holds off on getting fitted for a lymphedema sleeve at this time -Patient to reach out if she feels any pulling or heaviness in her arm -Continue massage and exercise -Discussed breast reconstruction would need to be at least 6 months post radiation therapy completion -Follow up: at conclusion of radiation therapy Exam is limited due to video visit. That being said incision is clean dry intact. Patient had a concern for a standing cone deformity. I discussed that I can be addressed at a later date after she completes her additional treatment which includes chemotherapy as well as radiation. She does not have any subjective symptoms of lymphedema. I encouraged her to delay her fitting of a compression sleeve as she may not need this at this time. I encouraged her to follow-up with her lymphedema team as well as us in 2 to 3 months for reassessment without any compression therapy at this time. She currently is asymptomatic. I encouraged her that if she feels a sensation of arm heaviness or swelling to reach out to us and her lymphedema therapy team sooner and we can reassess the need for compression garment at that time. Patient can follow-up with conclusion of her radiation therapy. The patient is seen and examined by Dr. Urbina and the following reflects his service. Scribed by Ivy Christina RN I agree with the Chief Complaint, ROS, and Past Histories independently gathered by the clinical support analyst and the remaining scribed note accurately describes my personal service to the patient. documented in this encounter [facility] 10-23-2023 Note [facility] 10-23-2023 Miscellaneous Notes Paperwork faex to Lydia @ [phone]. Viky Lowry STD paperwork for Lydia has been completed and placed in folder to be signed. Viky Lowry documented in this encounter [facility] 10-23-2023 History of Present illness Narrative SOCIAL WORK FOLLOW UP NOTE: [facility] Date of service:10/23/23 Minal Caputo is being seen for a follow up social work visit. Today's visit includes: patient TOPICS ADDRESSED: wig fitting PLAN: Continue follow up as needed Assigned SW listed in Care Team tab: Yes Patient was in today for a wig fitting. Patient was able to find a wig from the complementary wig bank. No other needs or concerns were identified. SW will remain available and will follow up as appropriate. BABS Canales documented in this encounter [facility] 10-22-2023 Note [facility] 10-22-2023 History of Present illness Narrative SOCIAL WORK FOLLOW UP NOTE: [facility] Date of service:10/22/23 Minal Caputo is being seen for a follow up social work visit. Today's visit includes: patient TOPICS ADDRESSED: wig fitting appointment PLAN: Continue follow up as needed F/U APPOINTMENT: 10/23/23 after Neulasta injection Assigned SW listed in Care Team tab: Yes SW met with Patient in the infusion room. Patient is interested in a wig fitting. Appointment made for 10/23. No other needs, questions or concerns were identified. SW will remain available and will follow up as appropriate. Deepika Jose, FURNITURE SERVICER-S documented in this encounter [facility] 10-22-2023 Note [facility] 10-22-2023 Note [facility] 10-22-2023 Note [facility] 10-22-2023 History of Present illness Narrative Summary: Doxorubicin administration Doxorubicin administered via right chest infusaport without complications. Doxorubicin administered via free flowing normal saline with positive blood return maintained throughout infusion. Pt denied any pain or discomfort at site. Lilia Cid RN,BSN,OCN documented in this encounter [facility] 10-22-2023 History of Present illness Narrative PATIENT NAME: Minal Caputo CLINIC NO.: [id number] ATTENDING PHYSICIAN: Mitch Garcia MD DATE OF SERVICE: October 22, 2023 Some of the elements of this note have been copied from my previous progress note dated 09/17/2203. All the information has been reviewed carefully. Dear Dr. Mendoza Yang here is an update on a follow up visit on female Minal Caputo at the clinic October 22, 2023 Diagnosis: L Breast Cancer: pT3,N3,M0, Grade 2 ILC, 6.3 cm, LVI present, Margins Negative, ER 80%, AR 5% and Her-2 IHC-0 Germline testing 07/2023: A variant of uncertain significance (VUS) was detected in BAP1 (c.[id number]>T). ECHO 08/2023: EF 55-60% and normal wall motion Treatment History: July 29, 2023: Left mastectomy and left axillary sentinel lymph node biopsy. Left axillary lymph node dissection, left axillary lymphatic or venous bypass, left axillary immediate lymphatic reconstruction with 2 lymphatics via an intussusception technique, September 04, 2023 DDAC started 10/22/2023 HPI: Minal Caputo is a 67 year old year old female here for follow up. Briefly, Minal felt a lump in her breast few months prior to her presentation. She did undergo a mammogram in January 2022 which demonstrated increased distortion about the left central breast, current area of asymmetry appeared to have increased. Last exam prior to that was in August 2020. No significant adenopathy was seen and an MRI and potential biopsy was recommended. A breast MRI was recommended. Left breast sonogram demonstrated distortion and shadowing 2 x 3 cm area at 4:00 location corresponding to the mammographic finding. Patient states that she had other things going on and since she had previous mammograms felt that no further workup was needed, until she felt a lump in her left breast. This led to additional workup including a diagnostic mammogram in April 2023. This demonstrated a persistent distortion deep central breast with greater fatty replacement. Patient underwent a left breast biopsy June 2023 which demonstrated a grade 1 invasive lobular carcinoma ER 80%, AR 5% and HER2/akash with IHC 0. A PET scan was subsequently completed on July 08, 2023 which demonstrated irregular FDG avid mass in the left breast. There are at least 3 FDG avid metastatic lymph nodes in the left axilla. There were no additional evidence of distant metastasis. An MRI of the breast was attempted but the examination was terminated. Of note a MammaPrint was also sent on the original biopsy which returned as luminal type A, low risk based on MammaPrint. The patient elected to transfer her care to the [facility] and underwent a L breast mastectomy and SLN biopsy on 07/29/2023/ Path demonstrated an invasive lobular carcinoma, grade 2, 6.3 cm, negative margins. Multifocal ADH, 4 sentinel lymph nodes 3 with macrometastasis and extranodal extension and 1 with an isolated tumor cell. After discussion the patient underwent completion left axillary dissection on 06/14/2024 and 25 out of 33 lymph nodes were positive for metastatic carcinoma, largest tumor deposit 16 mm with extranodal extension. Additional left breast skin without any abnormalities. Interval History: She is here to start Adjuvant chemo and doing well overall. Denies any diarrhea and also sinus infection has improved PAST MEDICAL HISTORY Diagnosis Date Atrial fibrillation (HCC) GERD (gastroesophageal reflux disease) Hiatal hernia HLD (hyperlipidemia) HTN (hypertension) Obesity, unspecified Other and unspecified hyperlipidemia Scoliosis Spinal stenosis, unspecified region other than cervical Social History Tobacco Use Smoking status: Never Smokeless tobacco: Never Vaping Use Vaping Use: Never used Substance Use Topics Alcohol use: Yes Comment: socially- couple times per year Drug use: Never FAMILY HISTORY Problem Relation Age of Onset Hypertension Mother Lipids Mother Cancer Father prostate Heart Father chf Lipids Father Hypertension Father Prostate Cancer Father 70 Rectal Cancer Sister 71 Stroke Sister 28 Breast Cancer Paternal Aunt 60 - 69 Difficulty with anesthesia No Family History Past medical, social and family history reviewed without any changes. REVIEW OF SYSTEMS GENERAL: No weight loss, malaise or fevers. No night sweats. HEENT: Negative for headaches, No changes in hearing or vision, no nose bleeds or other nasal problems. RESPIRATORY: Negative for cough, wheezing and shortness of breath CARDIOVASCULAR: Negative for chest pain, leg swelling and palpitations GI: Negative for abdominal discomfort, blood in stools or black stools and change in bowel habits : Negative for dysuria, frequency and incontinence MUSCULOSKELETAL: Negative for joint pain or swelling, back pain, and muscle pain. SKIN: Negative for lesions, rash, and itching. HEMATOLOGY/LYMPHOLOGY Negative for prolonged bleeding, bruising easily, and swollen nodes. NEURO: Negative for numbness or tingling of hands/feet. No weakness. PHYSICAL EXAMINATION: BP 185/66 Pulse 72 Temp (Src) 97.9 (Temporal) Resp 16 Ht 5' .551 [verified by 2 caregivers/ shoes off[ (1.54m) Wt 268 lb 4.8 oz (121.7kg) SpO2 95% LMP 08/26/2006 BMI 51.45 kg/(m^2). Wt 125.2 kg (276 lb 0.3 oz) BMI 50.47 kg/m2 Last 3 Encounter Wt Readings: Date: Wt: 09/17/2023 125.2 kg (276 lb 0.3 oz) 09/13/2023 124.4 kg (274 lb 4 oz) 08/29/2023 123.4 kg (272 lb) General appearance:ECOG PERFORMANCE STATUS: 0- Fully active, able to carry on all pre-disease performance w/o restriction. Patient in NAD. Skin: Skin color, texture, turgor normal. No rashes or lesions. Eyes: Anicteric sclera. Pupils are equally round and reactive to light. Extraocular movements are intact. Lymph Nodes: No cervical, supraclavicular, axillary or inguinal adenopathy. Oropharynx: Lips, mucosa, and tongue normal. Back: No pain to percussion. Negative SLR test Lungs clear to auscultation, No wheezing or rhonchi Heart: RRR without murmur, gallop, or rubs. Abdomen soft, non-tender. No masses, organomegaly Extremities: No deformities. No edema Neuro: Gait and speech normal. Reflexes normal and symmetric. Muscular strength intact. Sensation grossly intact. Rectal: Deferred : Deferred LABS: Glucose (mg/dL) Date Value 10/22/2023 130 04/02/2018 129 Potassium (mmol/L) Date Value 10/22/2023 4.2 04/02/2018 4.1 Sodium (mmol/L) Date Value 10/22/2023 146 04/02/2018 136 Chloride (mmol/L) Date Value 10/22/2023 108 04/02/2018 100 CO2 (mmol/L) Date Value 10/22/2023 27 04/02/2018 25 Creatinine (mg/dL) Date Value 10/22/2023 1.01 04/02/2018 0.83 BUN (mg/dL) Date Value 10/22/2023 21 04/02/2018 16 Anion Gap (mmol/L) Date Value 10/22/2023 11 04/02/2018 11 Calcium (mg/dL) Date Value 04/02/2018 8.2 Calcium, Total (mg/dL) Date Value 10/22/2023 9.5 Protein, Total (g/dL) Date Value 10/22/2023 6.4 03/19/2018 6.8 Albumin (g/dL) Date Value 10/22/2023 4.1 03/19/2018 4.2 Bilirubin, Total (mg/dL) Date Value 10/22/2023 0.8 03/19/2018 0.5 Alkaline Phosphatase (U/L) Date Value 10/22/2023 117 03/19/2018 107 AST (U/L) Date Value 10/22/2023 17 03/19/2018 27 ALT (U/L) Date Value 10/22/2023 32 03/19/2018 38 WBC Date Value Ref Range Status 10/22/2023 12.16 (H) 3.70 - 11.00 k/uL Final RBC Date Value Ref Range Status 10/22/2023 4.55 3.90 - 5.20 m/uL Final Hemoglobin Date Value Ref Range Status 10/22/2023 14.0 11.5 - 15.5 g/dL Final Hematocrit Date Value Ref Range Status 10/22/2023 42.8 36.0 - 46.0 % Final MCV Date Value Ref Range Status 10/22/2023 94.1 80.0 - 100.0 fL Final MCH Date Value Ref Range Status 10/22/2023 30.8 26.0 - 34.0 pg Final MCHC Date Value Ref Range Status 10/22/2023 32.7 30.5 - 36.0 g/dL Final RDW-CV Date Value Ref Range Status 10/22/2023 14.3 11.5 - 15.0 % Final Platelet Count Date Value Ref Range Status 10/22/2023 300 150 - 400 k/uL Final MPV Date Value Ref Range Status 10/22/2023 9.7 9.0 - 12.7 fL Final Abs Neut Date Value Ref Range Status 10/22/2023 9.30 (H) 1.45 - 7.50 k/uL Final Lymphocytes % Date Value Ref Range Status 10/22/2023 16.8 % Final Abs Lymph Date Value Ref Range Status 10/22/2023 2.04 1.00 - 4.00 k/uL Final Monocytes % Date Value Ref Range Status 10/22/2023 4.4 % Final Abs [place] Date Value Ref Range Status 10/22/2023 0.54 <0.87 k/uL Final Abs Eosin Date Value Ref Range Status 10/22/2023 0.19 <0.46 k/uL Final Basophils % Date Value Ref Range Status 10/22/2023 0.3 % Final Abs Baso Date Value Ref Range Status 10/22/2023 0.04 <0.11 k/uL Final PATH: L Breast Lumpectomy and SLN Biopsy 07/2023: INVASIVE CARCINOMA OF THE BREAST: Resection 8th Edition - Protocol posted: 11/14/2022 INVASIVE CARCINOMA OF THE BREAST: EXCISION - All Specimens SPECIMEN Procedure Total mastectomy Specimen Laterality Left TUMOR Tumor Site Lower outer quadrant to central Histologic Type Invasive lobular carcinoma Histologic Grade (Delevan Histologic Score) Glandular (Acinar) / Tubular Differentiation Score 3 Nuclear Pleomorphism Score 2 Mitotic Rate Score 1 Overall Grade Grade 2 (scores of 6 or 7) Tumor Size Greatest dimension of largest invasive focus (Millimeters): At least 63 mm Tumor Focality Single focus of invasive carcinoma Ductal Carcinoma In Situ (DCIS) Not identified Lymphatic and / or Vascular Invasion Present Focal Microcalcifications Present in non-neoplastic tissue Present in atypical ductal hyperplasia Treatment Effect in the Breast No known presurgical therapy MARGINS Margin Status for Invasive Carcinoma All margins negative for invasive carcinoma Distance from Invasive Carcinoma to Closest Margin 5 mm Closest Margin(s) to Invasive Carcinoma Posterior REGIONAL LYMPH NODES Regional Lymph Node Status Tumor present in regional lymph node(s) Number of Lymph Nodes with Macrometastases 3 Number of Lymph Nodes with Micrometastases 0 Number of Lymph Nodes with Isolated Tumor Cells 1 Size of Largest Charlie Metastatic Deposit 18 mm Extranodal Extension Present, greater than 2 mm Total Number of Lymph Nodes Examined (sentinel and non-sentinel) 4 Number of [place] Nodes Examined 4 pTNM CLASSIFICATION (AJCC 8th Edition) Reporting of pT, pN, and (when applicable) pM categories is based on information available to the pathologist at the time the report is issued. As per the AJCC (Chapter 1, 8th Ed.) it is the managing physician s responsibility to establish the final pathologic stage based upon all pertinent information, including but potentially not limited to this pathology report. pT Category pT3 pN Category pN1a N Suffix (sn) L Axillary Dissection 08/2023: A. Left axilla, dissection of axillary contents: - 25 out of 33 lymph nodes positive for metastatic carcinoma (25/33). - Largest tumor deposit measures 16 mm in greatest dimension. - Extranodal extension is present (greater than 2 mm). - Changes consistent with prior procedure site. Imaging: PET Scan 06/2023: * FDG avid left breast mass compatible with known primary breast malignancy with at least three mildly FDG avid metastatic lymph nodes in the left axilla. * No evidence of FDG avid distant metastatic disease. Assessment and Plan: Minal Caputo is a 67 year old year old female here for follow up. Postmenopausal female with a T3, N3, M0, invasive lobular carcinoma, grade 2, ER 80%, AR 5% and HER2/akash negative, IHC 0, cancer of the left breast. LVI was present. 28/37 lymph nodes were involved. She initially underwent a mastectomy and sentinel lymph node biopsy in July 2023 and had a completion axillary dissection on the left side in August 2023. Stated that at this time we would recommend adjuvant chemotherapy with Adriamycin and cyclophosphamide followed by weekly paclitaxel. We had a lengthy discussion in regards to hormonal therapy plus CDK 4 6 inhibitors as well. We also discussed the role of zoledronic acid. Here to start DDAC and discussed adverse events in detail and she has signed consent and proceed with therapy Dex for delayed nausea as well. Thank you for the kind referral. If there are any questions and or concerns please do not hesitate to contact me at [phone]. Mitch Garcia MD Hematology/Medical Oncology [facility] spent a total of 30 minutes on the date of the service which included preparing to see the patient, [id number] patient care, completing clinical documentation, obtaining and/or reviewing separately obtained history, performing a medically appropriate examination, and counseling and educating the patient/family/caregiver. CC: Sunny Jenkins MD documented in this encounter [facility] 10-22-2023 History of Present illness Narrative Oncology Nutrition Therapy Initial Assessment RECOMMENDED MALNUTRITION DIAGNOSIS: NO MALNUTRITION IDENTIFIED Nutriscore: Patient Score : 0 Nutrition Diagnosis: Behavioral-Environmental: Food and nutrition related knowledge deficit, related to, lack of prior exposure to information , as evidenced by client has no prior knowledge of need for food and nutrition - related information Nutrition Intervention: -encouraged weight maintenance during treatment -aim for at least 3 meals per day plus snack(s) as needed -aim for overall healthy balanced diet focusing on lean proteins, whole grains, beans/legumes, fruits, vegetables, low fat dairy foods, healthy fats -encouraged adequate hydration -aim for at least 60-64 ounces non-caffeine containing fluids -provider contact information provided for further questions/concerns Nutrition Monitoring & Evaluation: -PO Intake -Wt status -BM's -Biochemical Markers -Plan of care Patient's symptoms are: None Cancer Diagnosis: breast cancer Current Treatment: Adriamycin, Cytoxan, Neulasta, Zometa Previous Treatment(s): s/p mastectomy Brief visit with patient in treatment room. Today is her first chemotherapy. Pt denies any chewing/swallowing issues, denies current N/V/D/C. Pt denies food allergies/intolerances. Patient endorses good appetite and intakes. She is somewhat reluctant to discuss typical intakes. She does state she had a banana split yesterday. Reviewed with pt importance of adequate calories/protein and preserving lean muscle mass. Reviewed above interventions, problem solved with pt on ways to meet recommendations, and answered all of patient's questions. Thank you for allowing me to participate in the care of this pt. Readiness to Learn: Cognitive ability: Alert and oriented Motivation to learn: Interested Family support: High - Very involved in pt care Instruction provided to: Patient and family member Patient learns best by: Individual Instruction Factors affecting learning: None Physical limitations affecting learning: None Educational materials provided: none this visit Anthropometrics: Height: Last 1 Encounter Ht Readings: Date: Ht: 10/22/2023 153.8 cm (5' 0.55 ) Current weight: Last 1 Encounter Wt Readings: Date: Wt: 10/22/2023 121.7 kg (268 lb 4.8 oz) Estimated body mass index is 51.45 kg/m as calculated from the following: Height as of an earlier encounter on 10/22/23: 153.8 cm (5' 0.55 ). Weight as of an earlier encounter on 10/22/23: 121.7 kg (268 lb 4.8 oz). Resting Metabolic Rate: 1681 Weight Change: -3.5kg (2.8%) x 1 mo, not considered clinically significant Comments: weight fluctuations expected given diuretic therapy [facility] Body Weight: 46.9kg Estimated kilocalorie needs: 5821-6303 kilocalories determined by 30-35 kcal/kg Estimated protein needs: 47-70 grams determined by 1.0-1.5 g/kg [facility] weight Estimated fluid needs: ~2568-4904 milliliters based on 1 mL per kcal (unless otherwise indicated) Nutrition Focused Physical Exam: Unable to perform exam due to potential for patient discomfort (physical/emotional), will re-attempt during reassessment. Potential Signs of Inflammation: chronic condition Allergies: Fentanyl, Adhesive Tape-Silicones, and Sulfa (Sulfonamide Antibiotics) Medications: Current Outpatient Medications Medication Sig Dispense Refill predniSONE (DELTASONE) 20 mg tablet Take 3 tablets by mouth once daily for 4 days, THEN 2 tablets once daily for 4 days, THEN 1 tablet once daily for 4 days, THEN 0.5 tablets once daily for 4 days. 26 tablet 0 prochlorperazine (COMPAZINE) 10 mg tablet Take 1 tablet by mouth every 6 hours as needed. 100 tablet 2 ondansetron (ZOFRAN) 8 mg tablet Take 1 tablet by mouth every 8 hours as needed for nausea/vomiting. 90 tablet 2 methotrexate 2.5 mg tablet Take 15 mg by mouth every Saturday. folic acid 1 mg tablet Take 1 mg by mouth once daily. atorvastatin (LIPITOR) 20 mg tablet Take 1 tablet by mouth once daily. 30 tablet 2 losartan (COZAAR) 50 mg tablet Take 50 mg by mouth once daily. esomeprazole magnesium (NEXIUM ORAL) Take 20 mg by mouth once daily. furosemide (LASIX) 40 mg tablet Take 40 mg by mouth once daily. MULTIVITAMIN ORAL Take 1 Dose by mouth once daily. potassium chloride (K-TAB) 10 mEq tablet Take 10 mEq by mouth once daily. METOPROLOL 100 MG TAB Take 50 mg by mouth two times a day. 0 0 No current facility-administered medications for this visit. Need for Follow up: will continue to follow Referred by: Yokasta RILEY Billing Type: Initial Assess/15 min 1 unit Time Spent with Patient: 15 minutes Signed by: Nona Cannon MS, RDN, LD documented in this encounter [facility] 10-14-2023 Miscellaneous Notes Patient has been rescheduled to 10/22 and notified. Thanks! Nery Simeon Pt calls stating she's due to start treatment tomorrow but she needs to reschedule it because she's sick right now. Pt is audibly wheezing over the phone and short of breath. States she saw her PCP last week and was put on antibiotics. Pt notes that she is feeling a little better, but it's taking a while to fight what she has. Pt denies needs from our office stating she just needs to push her treatment back a week. PSS: please call pt and reschedule tomorrows appointments to next Saturday. Nel: please get records from PCP. Thanks Yvonne Baumann RN documented in this encounter [facility] 10-11-[address] labs for appt/tx on 10/15. Viky Lowry documented in this encounter [facility] 10-10-2023 Miscellaneous Notes Crystal from [facility] notes that they received an order from Dr Garcia for a compression sleeve. Requesting clinical documentation. Office notes from 09/20/23 (Plastic Surgery) and 09/17/23 (Dr Garcia) faxed to [phone]. Kendal Watts RN documented in this encounter [facility] 10-09-2023 History of Present illness Narrative Subjective Patient ID: Minal Caputo is a 67 y.o. female. LA Turner presents to the office for sick visit. Patient's past medical history is significant for right breast mass, positive for ILC grade 1 carcinoma, she is following with [facility] and will begin chemotherapy for invasive malignant neoplasm of left breast. Minal reports she was supposed to begin treatment today, but it was postponed until next week d/t illness. Following with rheumatology, currently on methotrexate. Minal states she is also currently on a steroid d/t rash from port insertion. Minal reports she has sinus infection, she states she gets one around this time every year. She reports she had low grade temperature, sinus pressure, some ear discomfort, cough, runny nose, post nasal drip, sore throat, myalgias for 3-4 days. Minal reports she is no longer having fever. Minal denies any recent sick contacts. The following portions of the patient's history were reviewed and updated as appropriate: allergies, current medications, past family history, past medical history, past social history, past surgical history, and problem list. Review of Systems Constitutional: Positive for fatigue and fever. HENT: Positive for congestion, postnasal drip, rhinorrhea, sinus pressure and sore throat. Respiratory: Positive for cough. Negative for chest tightness, shortness of breath and wheezing. Cardiovascular: Negative for chest pain and palpitations. Genitourinary: Negative. Musculoskeletal: Positive for arthralgias, back pain and myalgias. Neurological: Negative for syncope. Objective Physical Exam Vitals and nursing note reviewed. Constitutional: General: She is not in acute distress. Appearance: Normal appearance. She is not ill-appearing. HENT: Head: Normocephalic and atraumatic. Right Ear: Ear canal and external ear normal. Tympanic membrane is erythematous. Left Ear: Tympanic membrane, ear canal and external ear normal. Nose: Right Sinus: No maxillary sinus tenderness or frontal sinus tenderness. Left Sinus: No maxillary sinus tenderness or frontal sinus tenderness. Mouth/Throat: Pharynx: Posterior oropharyngeal erythema present. No oropharyngeal exudate. Comments: Mild erythema to posterior oropharynx. Eyes: Extraocular Movements: Extraocular movements intact. Conjunctiva/sclera: Conjunctivae normal. Pupils: Pupils are equal, round, and reactive to light. Neck: Vascular: No carotid bruit. Cardiovascular: Rate and Rhythm: Normal rate and regular rhythm. Pulses: Normal pulses. Heart sounds: Normal heart sounds. Musculoskeletal: Cervical back: Normal range of motion and neck supple. No rigidity or tenderness. Lymphadenopathy: Cervical: No cervical adenopathy. Skin: General: Skin is warm and dry. Findings: No erythema or rash. Neurological: Mental Status: She is alert. Assessment/Plan I recommend testing for covid/flu, Minal declines. However, she has redness to right ear, I will treat with antibiotic which will also treat sinusitis. She can also use flonase and zyrtec for the rhinitis. Minal will call the office if symptoms persist. Minal was seen today for sinus problem, fever, cough and sore throat. Diagnoses and all orders for this visit: Right non-suppurative otitis media Acute recurrent sinusitis, unspecified location Acute rhinitis Other orders - fluticasone propionate (FLONASE) 50 mcg/actuation nasal spray; SPRAY 1 SPRAY INTO EACH NOSTRIL IN THE MORNING - cetirizine (ZyrTEC) 10 mg tablet; Take 1 tablet (10 mg total) by mouth in the morning. - cefDINIR (OMNICEF) 300 mg capsule; Take 1 capsule (300 mg total) by mouth in the morning and 1 capsule (300 mg total) before bedtime. Do all this for 7 days. MIR Sheppard 10/09/23 1253 documented in this encounter [facility] 10-07-2023 Miscellaneous Notes Received call from Minal with concerns of extensive itching and redness around the port she had placed on September 27. Had patient send picture to IR coordinator email and reviewed image and concerns with Dr. Villafuerte, who originally placed port at [facility]. Dr. CLARK spoke with patient's oncologist, Dr. Garcia, and plan was put in place to postpone chemo treatment and take oral steroids for one week to see if rash and itching improves. Patient updated and agreeable to plan of care. documented in this encounter [facility] 09-27-2023 Miscellaneous Notes Patient is scheduled for her Neulasta injection on , 10/10 at 8:30am. I notified Deepika Garcia, who will meet with her during her treatment on Saturday, 10/09 to discuss wigs. ThanksYessi Pt is agreeable to coming in day 2 for neulasta injection. She would also like to schedule an appointment with Deepika on 10/09 during her treatment for a wig. PSS: please add pt to fast track schedule at 0830 on 10/10 for Neulast. Pt is aware. Please add pt to Deepika's schedule at some time on 10/09, possibly at 10 when she gets up and running for her treatment. She really wants to meet with Deepika at this visit so she can be fitted for a wig and Deepika can see her actual hair color to get something similar. Thanks Yvonne Baumann RN documented in this encounter [facility] 09-26-2023 Instructions Nell Martin PA-C - 09/26/2023 8:02 AM EST PATIENT PREOPERATIVE INSTRUCTIONS GiuseppecorbinLynda oscar* has scheduled you for your procedure at this surgery center: [facility]: [phone] --[id number] [place] [address]. Please enter through the entrance closest to [facility]. Please read below carefully for your personalized instructions. Dietary Restrictions: - No solid food after midnight. - You may have 12 ounces of clear liquids (water, clear juices such as apple juice or gatorade, carbonated beverages, clear tea, black coffee, jello) until 2 hours before scheduled arrival at facility. Medications: Unless instructed differently below, stay on all of your medications until your surgery. Approved medications to take the morning of surgery with a sip of water: METOPROLOL, NEXIUM PLEASE HOLD LOSARTAN FOR 24 HOURS PRIOR TO PROCEDURE If you start any new medications after today's visit, please contact the surgeon's office. Blood Thinning Medications: - Stop NSAIDS (Ibuprofen, Advil, Aleve, Motrin, Celebrex, Mobic, etc.) 7 days before surgery, as directed by your surgeon. - Stop Aspirin 7 days before surgery, as directed by your surgeon. - Stop Vitamin E, ALL multi-vitamins, herbals and dietary supplements 7 days before surgery. - You may take Tylenol (Acetaminophen) or any of your pain medications that do not contain aspirin or NSAIDS as needed. Important Reminders: - Candy, mints, and tobacco products are NOT permitted the morning of surgery. - Hearing aids, dentures and glasses may be worn the morning of surgery. - NO jewelry, body piercings, makeup, hairpins or contacts are to be worn the day of surgery. If you develop symptoms such as a fever, cold, or flu, or have other changes to your health within TWO DAYS of scheduled surgery or the morning of surgery, please contact the surgery center above. Personal Belongings: -Please have photo ID and insurance cards. -If you do not have a copy of advance directives on file with us, please bring a copy with you on the day of surgery. - Leave ALL valuables and money at home or with family members. For Outpatient Procedures: - YOU MUST HAVE A RESPONSIBLE STUNT WOMAN TAKE YOU HOME. A PRODUCER ASSISTANT OR TOOL KEEPER CANNOT BE MADE A RESPONSIBLE STUNT WOMAN. - We recommend that a responsible person stays with you overnight to take care of you. - You cannot stay in a hotel alone after outpatient surgery. You will not be permitted to have your surgery, if you do not have someone to take care of you. Arrival Time for Surgery: - The Surgery Center or hospital where you are having surgery will call the afternoon before surgery (or Saturday for Saturday surgery) with a scheduled arrival time. - If you have not heard by 4 pm, please contact the surgery center above. Please be aware that emergency situations arise, which may delay or change your surgical time. If this happens, we will notify you as soon as possible and regret any inconvenience. If you already have an Advance Directive, please fax a copy to [phone] or email to for it to be added to your chart. If you do not have an Advance Directive, you can find the appropriate form and more information at [email or web address]. We recommend that you complete the Advance Directive form found on the website and bring it with you the day of your surgery. It can be witnessed and scanned into your chart that day. documented in this encounter [facility] 09-26-2023 History and physical note HISTORY AND PHYSICAL EXAMINATION SERVICE DATE: 09/26/2023 SERVICE TIME: 8:11 AM PRIMARY CARE PHYSICIAN: Sunny Jenkins MD REASON FOR VISIT: Minal Caputo is a 67 year old female who is scheduled for Pending - INSERTION PORT VENOUS ACCESS ADULT at the request of Dr. Hui Villafuerte for consultation. My final recommendation will be communicated back to the requesting physician by way of shared medical record or letter. 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 Primary Osteoarthritis of Both Knees Morbid Obesity (Hcc) Arthritis of Both Knees Oa (Osteoarthritis) of Knee Acute Post-Operative Pain S/P Tkr (Total Knee Replacement) Using Cement, Bilateral H/O Total Knee Replacement, Bilateral Right Arm Weakness Copd (Chronic Obstructive Pulmonary Disease) (Hcc) Gerd (Gastroesophageal Reflux Disease) Primary Hypertension Peterson (Dyspnea On Exertion) Edema Palpitations Invasive Lobular Carcinoma of Breast in Female (Hcc) Ra (Rheumatoid Arthritis) (Hcc) Obesity, Class III, BMI >= 40 Subjective CHIEF COMPLAINT: Pre op exam HPI: Patient is a 67 year old female here for PACC. Patient with h/o abnormal mammogram with subsequent evaluation identifying invasive lobular carcinoma of breast in female. She is status post left mastectomy and left axillary lymph node biopsy on 07/29/2023 and status post left axillary lymph node dissection 09/04/2023. Patient has been recommended for procedure listed above; electing to proceed. PAST MEDICAL HISTORY Diagnosis Date Atrial fibrillation (HCC) GERD (gastroesophageal reflux disease) Hiatal hernia HLD (hyperlipidemia) HTN (hypertension) Obesity, unspecified Other and unspecified hyperlipidemia Scoliosis Spinal stenosis, unspecified region other than cervical PAST SURGICAL HISTORY Procedure Laterality Date , CLASSIC, IN-HOSP CARE 1980 COLONOSCOPY CURETTAGE EGD PAST SURGICAL HISTORY OF 1986 spinal instrumentation (Valadez rods) PAST SURGICAL HISTORY OF 2006 lumbar laminectomy PAST SURGICAL HISTORY OF hysteroscopy with removal of fibroid, cyst, polyps PAST SURGICAL HISTORY OF Bilateral total knee arthroplasty FAMILY HISTORY Problem Relation Age of Onset Hypertension Mother Lipids Mother Cancer Father prostate Heart Father chf Lipids Father Hypertension Father Prostate Cancer Father 70 Rectal Cancer Sister 71 Stroke Sister 28 Breast Cancer Paternal Aunt 60 - 69 Difficulty with anesthesia No Family History SOCIAL HISTORY: Social History Tobacco Use Smoking status: Never Smokeless tobacco: Never Vaping Use Vaping Use: Never used Substance Use Topics Alcohol use: Yes Comment: socially- couple times per year Drug use: Never Prior to Admission medications as of 09/26/23 0842 Medication Sig Last Dose Taking prochlorperazine (COMPAZINE) 10 mg tablet Take 1 tablet by mouth every 6 hours as needed. Yes ondansetron (ZOFRAN) 8 mg tablet Take 1 tablet by mouth every 8 hours as needed for nausea/vomiting. Yes methotrexate 2.5 mg tablet Take 15 mg by mouth every Saturday. Taking Yes folic acid 1 mg tablet Take 1 mg by mouth once daily. Taking Yes atorvastatin (LIPITOR) 20 mg tablet Take 1 tablet by mouth once daily. Yes losartan (COZAAR) 50 mg tablet Take 50 mg by mouth once daily. Taking Yes esomeprazole magnesium (NEXIUM ORAL) Take 20 mg by mouth once daily. Taking Yes furosemide (LASIX) 40 mg tablet Take 40 mg by mouth once daily. Taking Yes MULTIVITAMIN ORAL Take 1 Dose by mouth once daily. Taking Yes potassium chloride (K-TAB) 10 mEq tablet Take 10 mEq by mouth once daily. Taking Yes METOPROLOL 100 MG TAB Take 50 mg by mouth two times a day. Taking Yes No medication comments found. ALLERGIES Allergen Reactions Fentanyl Intolerance Drop in RR and drop in pulse ox to 70% Adhesive Tape-Silic* Rash Sulfa (Sulfonamide * Unknown COVID VACCINATION STATUS: Fully vaccinated REVIEW OF SYSTEMS: PAIN ASSESSMENT: General: No weight loss, malaise or fevers. Neuro: No history of TIA's, stroke, CORPORATE TUTOR tumor, impaired sensorium, hemiplegia, paraplegia or quadraplegia. No neurological symptoms or problems. Respiratory: No history of current cough or pneumonia in the past 6 weeks. 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 Endocrine: (+) borderline diabetic, thyroid nodule- monitored Hematology: No history of bleeding or clotting disorder. Pt is not taking anti-coagulation or platelet medications. No history of hematological symptoms or problems. Oncology: No history of CA metastasis, chemo within 30 days, or radiotherapy within 90 days. Has not lost 10% of body wt in 6 months. No history of oncological symptoms or problems. Psych: No history of psychiatric symptoms or problems. Musculoskeletal: Joint pain, RA Skin: Negative for lesions, rash and itching. Objective PHYSICAL EXAM: VITALS: BP 152/56 Pulse 74 Temp (Src) 98.4 (Temporal Artery) Resp 20 Ht 5' 2 (1.58m) Wt 274 lb 7.6 oz (124.5kg) SpO2 94% LMP 08/26/2006 BMI 50.19 kg/(m^2). General: Alert and oriented, No acute distress, Obese Skin: Normal color, no rash, no lesions. HEENT: EOM, pupils equal, round and reactive. Neck Supple Cardiovascular: Normal S1 & S2, 2/6 ANN MARIE at LSB. no rubs or gallops. No JVD. Pulse regular. Lungs: Normal breath sounds, no wheezes or crackles. Extremities: No deformity, or tenderness, no joint swelling or clubbing. +1 BLE edema No erythema or ulcers Neurological: Normal cognition and motor skills. Pulses: Carotid and radial pulses normal +2. Diagnostic tests reviewed for today's visit: Lab Value Units Date High Low HB 14.8 g/dL 09/20/2023 15.5 11.5 HCT 46.1 % 09/20/2023 46.0 36.0 WBC 7.62 k/uL 09/20/2023 11.00 3.70 PLT 304 k/uL 09/20/2023 400 150 NA 142 mmol/L 09/20/2023 144 136 K 4.2 mmol/L 09/20/2023 5.1 3.7 GLUC 117 mg/dL 09/20/2023 99 74 BUN 9 mg/dL 09/20/2023 21 7 CREAT 0.82 mg/dL 09/20/2023 0.96 0.58 PTSEC 10.9 sec 09/20/2023 13.0 9.7 INR 1.0 no uni* 09/20/2023 1.3 0.9 APTT No results within date range. ALT 37 U/L 09/20/2023 38 7 AST 31 U/L 09/20/2023 35 13 TBILI 0.4 mg/dL 09/20/2023 1.3 0.2 TSH No results within date range. Hemoglobin A1C (%) Date Value 03/14/2022 6.3 EKG Procedure Date : Feb 05 2023 13:26:17 Edit Date : Feb 06 2023 10:07:04 Diagnosis: NORMAL SINUS RHYTHM NORMAL ECG Type of Monitor: Extended Monitoring-Zio Patch Enrollment Dates: 12/08/2021-12/09/2021 Patient had a min HR of 60 bpm, max HR of 123 bpm, and avg HR of 82bpm. Predominant underlying rhythm was Sinus Rhythm. 1 run of Supraventricular Tachycardia occurred lasting 6 beats with a max rate of102 bpm (avg 93 bpm). Episode of Supraventricular Tachycardia may bepossible Atrial Tachycardia with variable block. Isolated SVEs were rare(<1.0%), SVE Couplets were rare (<1.0%), and SVE Triplets were rare(<1.0%). Isolated VEs were rare (<1.0%), and no VE Couplets or VETriplets were present. No AF. 0 patient triggered events ZioPatch monitoring rhythm strips and any patient triggered events were reviewed. I agree with findings summarized above. John Dc MD ECHO Obtained from outside source and scanned into [employer] Date: 09/18/2023 Result: LV systolic function normal with EF 55-60% FULL REPORT UNDER CARDIAC TAB, dated 09/23/2023 Assessment/Plan Mixed hyperlipidemia Assessment: Managed with Statin Monitored by PCP Primary hypertension Assessment: Managed with med, acceptable for surgery BP in office 09/26/2023: 152/56 Monitored by PCP Palpitations Assessment: evaluated for possible atrial fibrillation on metoprolol Follows with Dr. John Dc ( Cardiology, Last office visit 02/05/2023) :No additional treatment is needed at this time. Pt. is currently Asymptomatic PETERSON (dyspnea on exertion) Assessment: Chronic, denies any worsening from baseline Does not use any inhalers SpO2 94% on RA Disorder of mitral valve Assessment: trace mitral regurgitation per 08/2023 ECHO (+) systolic cardiac murmur Morbid obesity (HCC) Assessment: BMI 50.20 Edema Assessment: +1 BLE edema No erythema or ulcers Managed with Lasix Idiopathic scoliosis and kyphoscoliosis Assessment: s/p surgical correction, per 01/02/2023 CXR:Thoracic dextroscoliosis in fusion rods again noted RA (rheumatoid arthritis) (HCC) Assessment: sero positive RA methotrexate and folic acid Follows with Dr. Celia Lewis METS: Do light work around the house, such as dusting or washing dishes (2.70 METs) Take care of self; that is eating, dressing, bathing, using the toilet (2.75 METs) Limited most or all of the time (uses scooter, mobility device) ANESTHESIA FINDINGS: Intubation History: No history of difficult intubation Significant Anesthesia Considerations: difficulty with IV/Vein access Airway Exam: General : Obese appearance Mallampati Score is CLASS III ULBT: Class II - Lower incisors can bite the upper lip below the case line Neck: Short thick neck, FROM Distance from hyoid to mentum during neck extension is at least 3 finger breaths Mouth: Normal tongue size and Mouth opening greater than 2 finger breaths Dentition: Intact Airway History: No abnormal airway history PLAN This patient is optimally prepared for surgery. CONSULTS: Patient does not require consults for optimization at this time. The Following Tests/Procedures Have Been Initiated: Labs not indicated per PACC protocol, EKG not indicated per PACC protocol Planned Anesthetic: Per anesthesia choice Instructions Given to Patient: Instructions located in the after visit summary. Patient given verbal and written preop instructions and voices comprehension and compliance. SIGNATURE: Nell Martin PA-C PATIENT NAME: Minal Caputo DATE: September 26, 2023 TIME: 7:57 AM documented in this encounter [facility] 09-25-2023 Miscellaneous Notes Spoke with patient regarding NM HMT Molecular breast imaging localization test that Dr. Soto ordered on 07/10/23. Patient originally had it scheduled with [facility] on 08/08/23 but patient had cancelled it through her MyChart. Patient stated today that she went to [facility] instead and has already had a Mastectomy. Will inform Dr. Soto. documented in this encounter [facility] 09-25-2023 Telephone encounter Note Spoke with patient regarding NM HMT Molecular breast imaging localization test that Dr. Soto ordered on 07/10/23. Patient originally had it scheduled with [facility] on 08/08/23 but patient had cancelled it through her MyChart. Patient stated today that she went to [facility] instead and has already had a Mastectomy. Will inform Dr. Soto. [facility] 09-24-2023 Note [facility] 09-24-2023 Note [facility] 09-24-2023 Note [facility] 09-20-2023 Note HNO ID: [id number] Author: GABBY URBINA MD Service: ? Author Type: Physician Type: Progress Notes Filed: 09/23/2023 10:48 Note Text: Plastic Surgery Note CC: Post op HPI: Minal is a 67 year old female, s/p: Date of Surgery: 09/04/2023 Surgery: Left axillary immediate lymphatic reconstruction with 2 lymphatics via an intussusception 0.4mm and 0.3 mm lymphatic into 1mm vein flow confirmed with milk test 22 modifier given the added complexity via the small size as well as surgical duration for these procedures as well as given the patient's body habitus. Adjacent tissue rearrangement left chest 34x4cm Time Postop: 16 days S: Pain control is good with medication. -Recording CASSIDY drain output x 1, more than 50 cc daily for 2 consecutive days. O: Left upper extremity w/ swelling, no evidence of hematoma or seroma Left breast incisions well approximated, no erythema, no drainage, no s/s of infection No symptoms or signs of infection Temp 36.8 ?C (98.3 ?F) (Temporal) LMP 08/26/2006 (Approximate) A/P: -Expected post operative course -Continue to record CASSIDY drain output. Criteria for removal is less than 20-25 cc daily for 2 consecutive days. -Shower regularly to keep the incisions clean and inspect for signs of infection. -Walking is encouraged, this helps reduce swelling and lowers the chance of blood clots. -Activity restrictions reviewed with patient. Okay to raise arm above head at 2 weeks if all drains have been removed and you do not have any wound healing issues. -No lifting/pushing/pulling greater than 10 lbs for 4 weeks after surgery. Do not perform construction assistant such as laundry and vacuuming. Do not perform yard work or gardening. -Continue to wear surgical bra for 6 weeks following surgery, okay for soft, front closing sports bra at 2 weeks. -No water submersion/baths until all incisions are fully healed, typically this takes 6 weeks. -Okay for tylenol alternating with ibuprofen for pain control (do not exceed 4 g tylenol in a 24 hour period, okay for ibuprofen 600-800 mg every 8 hours as needed for pain). -Okay for driving if you're not taking any narcotic pain medication and all drains have been removed and you feel you can safely maneuver a motor vehicle. -Okay to sleep on your back and lie flat, do not sleep on the surgical side 3-4 weeks after recent procedure. -Consult to lymphedema therapy placed. Please call [phone] to schedule, change, cancel or confirm an appointment. -Return to clinic in when CASSIDY drain meets criteria for removal, okay for home health to remove drain. -Follow up w/ Dr. Urbina in 4 weeks. -If experiencing wound complications or have any questions or concerns during business hours call [phone], option 3 or after hours (after 5 pm or on the weekend) call [phone] and ask for the plastic surgery resident / fellow director of physical education for further instructions. If you have increasing swelling or bruising, particularly one side greater than the other. If swelling and redness persists after a few days. If you have increased redness along the incision. If you have severe or increased pain not relieved by medication. If you have an oral temperature of 100.4 degrees or higher. If you have any yellow or greenish drainage from the incisions or notice a foul smell. If you have bleeding from the incisions that is difficult to control with light pressure. Clinically the patient is doing well. His drain does not quite meet criteria for removal. Will have the patient follow-up for drain removal or have this be removed by her home health team. Will begin referral to our lymphedema therapy team for observation management. Patient is no evidence of lymphedema at this time. However patient may benefit from a short duration of compression therapy to allow the lymphatic reconstruction to function. Patient can follow-up in 4 weeks. The patient is seen and examined by Dr. Urbina and the following reflects his service. Scribed by Elida Cordoba RN I agree with the Chief Complaint, ROS, and Past Histories independently gathered by the clinical support analyst and the remaining scribed note accurately describes my personal service to the patient. [facility] 09-17-2023 Note [facility] 09-13-2023 Note [facility] 09-13-2023 Note [facility] 09-13-2023 Note [facility] 09-05-2023 Note [facility] 09-05-2023 Note [facility] 09-04-2023 Note HNO ID: [id number] Author: ELICEO ANDRADE RN Service: ? Author Type: Registered Nurse Type: Nursing Progress Note Filed: 09/04/2023 17:21 Note Text: Plastics paged about pt BP of 165/110. [facility] 09-04-2023 Note [facility] 09-04-2023 Note [facility] 08-29-2023 Note [facility] 08-29-2023 Note [facility] 08-23-2023 Miscellaneous Notes Doris from [facility] called into the office and just wanted to make you aware of pts blood pressure has been running between 150-180 for her diastolic number. And has also had increased edema in her legs. documented in this encounter [facility] 08-23-2023 Telephone encounter Note Doris from [facility] called into the office and just wanted to make you aware of pts blood pressure has been running between 150-180 for her diastolic number. And has also had increased edema in her legs. [facility] 08-06-2023 Note [facility] 08-06-2023 Note [facility] 08-06-2023 History of Present illness Narrative BREAST CANCER POST OPERATIVE FOLLOW-UP SERVICE DATE: 08/06/2023 SURGERY DATE: 07/29/2023 POSTOPERATIVE VISIT #1 SUBJECTIVE: Minal Caputo, 67 year old female presents today status post left breast mastectomy and left axillary sentinel lymph node biopsy. She was given oxycodone postoperatively and took 0 pills. She has not had much pain since surgery, she used Tylenol the day of surgery but has not needed anything since. She denies any erythema, fever, chills or other signs of infection. CASSIDY drain still putting out 60-80 cc daily. Pathology: SURGICAL PATHOLOGY: [id number] Order: [id number] Collected 07/29/2023 11:29 AM Status: Final result Visible to patient: No (scheduled for 08/11/2023 4:46 PM) Dx: Invasive lobular carcinoma of breast ... 0 Result Notes Component FINAL DIAGNOSIS A. Left breast, mastectomy: - Invasive lobular carcinoma, Angela grade 2, at least 63 mm, negative margins; see synoptic comment. - Lobular carcinoma in situ, classic type. - Atypical ductal hyperplasia, multifocal. - Complex sclerosing lesion, involved by invasive lobular carcinoma. - Fibrocystic changes, including usual ductal hyperplasia, apocrine metaplasia, columnar cell change, micropapillomas, and cysts. - Duct ectasia. - Nipple and skin, not involved by carcinoma. - Skeletal muscle, not involved by carcinoma. - Calcifications in association with atypical ductal hyperplasia and benign ducts. B. Left axillary sentinel lymph node #1, excision: Metastatic carcinoma in one lymph node, 14 mm, with extranodal extension (1/). C. Left axillary sentinel lymph node #2, excision: Metastatic carcinoma in one lymph node, 4 mm (1/). D. Left axillary sentinel lymph node #3, excision: Metastatic carcinoma in one lymph node, 18 mm, with extranodal extension (1/). E. Left axillary sentinel lymph node #4, excision: Isolated tumor cells in one lymph node (i+/1). F. Left breast, medial tissue, excision: Benign skin and fibroadipose tissue, negative for carcinoma. G. Left breast skin, excision: Benign skin, negative for carcinoma. Diagnosis Comment The following immunohistochemical stains were performed to help establish the diagnosis: - Keratin AE1/3 (block E1): Highlights isolated tumor cells in lymph node The preliminary findings were communicated to Dr. Celia Donaldson, Dr. Law Rehman, and Juliet Cai NP by Dr. Saravanan Danielle via secure email on 16/07/2023 at 10:11 a.m. Laboratory Developed Test (LDT) Disclaimer: Performance characteristics of immunohistochemical, immunofluorescent and chromogenic in-situ hybridization tests have been determined by the performing laboratory within [facility] [place] ([facility], [facility], [facility], [facility], [facility], [facility], or [facility]) in a manner consistent with CLIA requirements. One or more of these tests have not been cleared or approved by the FDA. [facility] is regulated under CLIA as qualified to perform high-complexity testing. These tests are used for clinical purposes. They should not be regarded as investigational or for research. Positive and negative controls stain appropriately. Block for additional Biomarkers/Molecular studies A7 Synoptic Report INVASIVE CARCINOMA OF THE BREAST: Resection 8th Edition - Protocol posted: 11/14/2022 INVASIVE CARCINOMA OF THE BREAST: EXCISION - All Specimens SPECIMEN Procedure Total mastectomy Specimen Laterality Left TUMOR Tumor Site Lower outer quadrant to central Histologic Type Invasive lobular carcinoma Histologic Grade (Angela Histologic Score) Glandular (Acinar) / Tubular Differentiation Score 3 Nuclear Pleomorphism Score 2 Mitotic Rate Score 1 Overall Grade Grade 2 (scores of 6 or 7) Tumor Size Greatest dimension of largest invasive focus (Millimeters): At least 63 mm Tumor Focality Single focus of invasive carcinoma Ductal Carcinoma In Situ (DCIS) Not identified Lymphatic and / or Vascular Invasion Present Focal Microcalcifications Present in non-neoplastic tissue Present in atypical ductal hyperplasia Treatment Effect in the Breast No known presurgical therapy MARGINS Margin Status for Invasive Carcinoma All margins negative for invasive carcinoma Distance from Invasive Carcinoma to Closest Margin 5 mm Closest Margin(s) to Invasive Carcinoma Posterior REGIONAL LYMPH NODES Regional Lymph Node Status Tumor present in regional lymph node(s) Number of Lymph Nodes with Macrometastases 3 Number of Lymph Nodes with Micrometastases 0 Number of Lymph Nodes with Isolated Tumor Cells 1 Size of Largest Charlie Metastatic Deposit 18 mm Extranodal Extension Present, greater than 2 mm Total Number of Lymph Nodes Examined (sentinel and non-sentinel) 4 Number of [place]ugio Nodes Examined 4 pTNM CLASSIFICATION (AJCC 8th Edition) Reporting of pT, pN, and (when applicable) pM categories is based on information available to the pathologist at the time the report is issued. As per the AJCC (Chapter 1, 8th Ed.) it is the managing physician s responsibility to establish the final pathologic stage based upon all pertinent information, including but potentially not limited to this pathology report. pT Category pT3 pN Category pN1a N Suffix (sn) SPECIAL STUDIES Testing Performed on (outside case, slides reviewed at the [facility]) Comment(s) Invasive lobular carcinoma is present in 21 consecutive sampled sections in the medial-lateral dimension, measuring at least 63 mm. OBJECTIVE: PHYSICAL EXAM: Incision healing without signs of infection. Extensive bruising superiorly to the incision. CASSIDY to suction. Output 60-80 cc. Serosanguinous drainage. POST OPERATIVE STATUS OR LEFT BREAST: Uncomplicated post-operative course, Assessment ASSESSMENT: Minal Caputo, 67 year old female, status post left breast mastectomy and left axillary sentinel lymph node biopsy. Doing well since surgery with minimal pain. Drain still putting out 60-80 cc of serosanguineous fluid, dressing changed. Discussed not wrapping herself as tight with the BLANK wrap or switching to a bra. Discussed pathology with patient and her friend. Discussed need for further surgery, agreed upon by Dr. Castillo. Patient signed consent in office. PLAN: Continue with previously scheduled consults. Seeing Dr. Yang and Dr. Rehman today. Reviewed pathology and need for additional surgery Discussed not wrapping her BLANK as tightly or switching to a bra Will touch base on Saturday to see how much output she is still having from her drain. Plan to have her return to clinic to have drain pulled once the output is less then 30 cc a day All questions were answered; patient has no further concerns. Ev Cai APRN.NEY documented in this encounter [facility] 08-06-2023 Note [facility] 08-06-2023 Nurse Note Reviewed and confirmed with patient that there were no changes in the the nursing assessment and vitals that were completed on August 06, 2023 during previous provider appointment. Shannan Schulz documented in this encounter [facility] 08-06-2023 Nurse Note Additional intake questions: Has the patient had fever, nausea, vomiting, diarrhea, constipation, fatigue for > 1 week? No Does the patient have a decreased appetite? No Does patient want to see a Manager [place]? No (yes to any of above refer patient to schedulers for dietitian appointment) ) Does patient have any new or increased numbness or tingling of extremities? No Is patient interested in fertility information? No Does patient need any prescription refills? No Does patient have an advanced directive in place? No, Patient referred to [facility] documented in this encounter [facility] 08-06-2023 History of Present illness Narrative BREAST CANCER FOLLOW UP NOTE SERVICE DATE: August 05, 2023 Oncology History Overview Note Prev callbacks, no prev biopsies. [place] a right breast lump few months prior to presentation 04/30/23: MMG (breast heterogenously dense). R breast, masses in the UO breast at anterior depth, central to the nipple at middle depth, and upper inner R breast at middle depth, stable and fluctuated compared to priors, favoring benign etiologies. Diffuse round and punctate calcs are not significantly changed compared to 2019. There is a large area of architectural disortion in the celtral left breast 6.0 x 5.4 x 4.0cm. There is redemonstration of diffuse round and and punctate calcs. 04/30/23: left breast US - left breast 4:00, region of a palpable abnormality, there is a 4.5 x 2.5 x 3.3cm irregular hypoechoic mass with angular margins and posterior acoustic shadowing. Imaging appears to indicate that this is approximately 1.2cm from the nipple. Other cysts are imaged. Also skin thickening anteriorly, axilla wasn't imaged 06/19/23: left breast core biopsy ILC grade 1, ER 80% AR 5% HER2 IHC 0 07/08/23: PET: fdg avid mass in left breast SUV max 4.5. Mildly fdg avid left axillary lymph nodes with max suv of 2.5. No other sites of fdg avid metastatic disease 07/23/23: US axilla left: negative study no LAD noted 07/29/23: left mastectomy at least 6cm of G2 ILC, assoc with classic LCIS. Margins pending, first 3 sentinel nodes are positive with STEVEN, 4th SLN with ITCs Invasive lobular carcinoma of breast in female (HCC) 07/23/2023 Initial Diagnosis Invasive lobular carcinoma of breast in female (HCC) 07/23/2023 Cancer Staged Staging form: Breast, AJCC 8th Edition - Clinical stage from 07/23/2023: Stage IB (cT2, cN0, cM0, G1, ER+, AR+, HER2-) - Signed by Mendoza Yang MD on 07/23/2023 08/06/2023 Cancer Staged Staging form: Breast, AJCC 8th Edition - Pathologic stage from 08/06/2023: pT3, pN1a, G2, ER+, AR+, HER2- - Signed by Mendoza Yang MD on 08/06/2023 HISTORY OF PRESENT ILLNESS: Minal is here with friend. She is here for a pt detected left breast ILC. No prev biopsies. Baseline needs a walker for short distances, wheelchair for long, due to need for hip replacement 2/2 likely osteoarthritis. REVIEW OF SYSTEMS: Negative unless noted PHYSICAL EXAM: BP 169/63 Pulse 65 Temp 36 C (96.8 F) (Temporal) Resp 20 Wt 123.8 kg (272 lb 14.2 oz) SpO2 96% BMI 48.34 kg/m2 Body mass index is 48.34 kg/m . Estimated body surface area is 2.35 meters squared as calculated from the following: Height as of 07/26/23: 160 cm (5' 3 ). Weight as of this encounter: 123.8 kg (272 lb 14.2 oz). ECO- Restricted in physically strenuous activity. Carries out light duty. GENERAL:well-nourished, healthy, alert and oriented x 3 SKIN:warm, dry, skin color, texture, turgor normal HEAD/EYES:normocephalic, atraumatic, and anicteric NECK:supple, symmetrical, no thyromegly LUNGS: Chest symmetrical with respirations, non labored HEART: regular rate and rhythm, No murmur asculated., and Equal peripheral pulses ABDOMEN: soft, nondistended. No hepatomegly., No masses MUSCULOSKELETALl: Upper extremities with normal range of motion, no lymphedema BREAST (LEFT): drain with serosanguinous discharge; surgical site is intact LABS: CBC Latest Ref Rng & Units 07/26/2023 WBC 3.70 - 11.00 k/uL 8.51 RBC 3.90 - 5.20 m/uL 4.56 HEMOGLOBIN 11.5 - 15.5 g/dL 14.1 HEMATOCRIT 36.0 - 46.0 % 43.2 MCV 80.0 - 100.0 fL 94.7 MCH 26.0 - 34.0 pg 30.9 MCHC 30.5 - 36.0 g/dL 32.6 RDW-CV 11.5 - 15.0 % 14.8 PLATELETS 150 - 400 k/uL 314 MPV 9.0 - 12.7 fL 10.1 BASO% % 0.4 ABS NEUT (ANC) 1.45 - 7.50 k/uL 5.69 ABS LYMPH 1.00 - 4.00 k/uL 1.90 ABS MONO <0.87 k/uL 0.65 ABS EOSIN <0.46 k/uL 0.21 ABS BASO <0.11 k/uL 0.03 NRBC /100 WBC 0.0 DIFF TYPE - - CMP Latest Ref Rng & Units 07/26/2023 SODIUM 136 - 144 mmol/L 141 POTASSIUM 3.7 - 5.1 mmol/L 4.0 CHLORIDE 97 - 105 mmol/L 104 CO2 22 - 30 mmol/L 24 GLUCOSE 74 - 99 mg/dL 101(H) BUN 7 - 21 mg/dL 15 CREATININE 0.58 - 0.96 mg/dL 0.79 EGFR >=60 mL/min/1.73m 82 EGFR-ALL OTHER RACES >60 . - EGFR- >60 - PROTEIN, TOTAL 6.3 - 8.0 g/dL 6.7 ALBUMIN 3.9 - 4.9 g/dL 4.2 CALCIUM, TOTAL 8.5 - 10.2 mg/dL 9.5 BILIRUBIN, TOTAL 0.2 - 1.3 mg/dL 0.5 AST 13 - 35 U/L 24 ALT 7 - 38 U/L 31 ALKALINE PHOSPHATASE 34 - 123 U/L 95 IMPRESSION: Minal Caputo is a 67 year old female diagnosed with STAGE: Cancer Staging Invasive lobular carcinoma of breast in female (HCC) Staging form: Breast, AJCC 8th Edition - Clinical stage from 07/23/2023: Stage IB (cT2, cN0, cM0, G1, ER+, AR+, HER2-) - Signed by Mendoza Yang MD on 07/23/2023 - Pathologic stage from 08/06/2023: pT3, pN1a, G2, ER+, AR+, HER2- - Signed by Mendoza Yang MD on 08/06/2023 PLAN: Stage IIIA pT3N1a? left ILC: - her final path is pending but we did receive email from path that tumor is around 6cm, margins pending finalization, and 3 SLNs involved, and ITCs in 4th lymph node - MP came back low on her biopsy. Noted - pts needs ax dissection, to be planned by surgery. Rad onc planning axillary charlie radiation likely - in terms of chemotherapy, I discussed with pt that she is unlikely to derive a great chemo benefit but I did have a long discussion about caveats of existing published data: robust randomized controlled data has historically featured up to 3 Lns (MINDACT with mammaprint, and Rxponder with oncotype) - we could consider it if she gets ax dissection for local therapy and if she had several involved lymph nodes (chemotherapy benefit in ABC trials with potential adriamycin addition). To be discussed postop - vit D 07/26/23 69.2 RTC: 1 week postop Mendoza Yang MD Associate Staff Breast Medical Oncology [facility] cc: Rita Amanda MD I spent a total of 45 minutes on the date of the service which included preparing to see the patient, [id number] patient care, completing clinical documentation, obtaining and/or reviewing separately obtained history, and performing a medically appropriate examination. documented in this encounter [facility] 07-30-2023 Note [facility] 07-29-2023 Note [facility] 07-29-2023 Note [facility] 07-29-2023 Note [facility] 07-29-2023 History of Present illness Narrative RADIOLOGY SERVICE PROGRESS NOTE SERVICE DATE: 07/29/2023 SERVICE TIME: 8:30 AM PATIENT IDENTITY VERIFICATION COMPLETED USING TWO (2) STANDARD IDENTIFIERS: Name and Date of confirmed by patient verbally and Name and Date of confirmed by identification band FALL SCREENING: Has the patient had 2 falls in the last year or 1 fall with injury or currently using an Ambulatory Assistive Device (Walker, Cane, Wheelchair, Crutches, etc.)? Yes, Patient High Risk for Falls What interventions were put in place to prevent falls during this visit? [place] Risk Wristband Applied and Instructed Patient to Call for Help if Needed PATIENT GENDER DATA: .female : No ALLERGIES: Reviewed and unchanged MEDICATIONS REVIEWED: Yes PATIENT RELEVANT IMPLANT DATA REVIEWED: Not Applicable CREATININE: Creatinine Date Value Ref Range Status 07/26/2023 0.79 0.58 - 0.96 mg/dL Final 03/16/2022 0.97 (H) 0.58 - 0.96 mg/dL Final 03/15/2022 0.92 0.58 - 0.96 mg/dL Final Estimated Glomerular Filtration Rate Date Value Ref Range Status 07/26/2023 82 >=60 mL/min/1.73m Final Comment: Estimated Glomerular Filtration Rate (eGFR) is calculated using the 2020 CKD-EPI creatinine equation. This equation utilizes serum creatinine, sex, and age as parameters. The creatinine assay has traceable calibration to isotope dilution-mass spectrometry. Refer to KDIGO guidelines for clinical interpretation. In patients with unstable renal function, e.g. those with acute kidney injury, the eGFR may not accurately reflect actual GFR. eGFR- Date Value Ref Range Status 04/02/2018 >60 >60 Final P.O.C.T. RESULTS: N/A July 29, [address] PERFORMED: No IV SITE: NM only - not applicable, oral or physician administered agents given to patient POST EXAM PIV STATUS: Not applicable PROCEDURE TYPE: NM INJECT: NM SENTINEL LYMPH NODE LEFT. 437 microcuries Tc99m SULFUR COLLOID . No other medications given.. INJECTED INTO LEFT BREAST BY DR VALENCIA ADMINISTRATION TIME: 8:22AM PATIENT DISCHARGED TO: Ambulatory patient, left [place] department area. A Diagnostic radioactive procedure has taken place, with no further precautions necessary other than routine body substance precautions. More information regarding radiation safety can be found using this link: [email or web address] SIGNATURE: RT Nick(R) PATIENT NAME: Minal Caputo DATE: July 29, 2023 TIME: 8:30 AM PAGER/CONTACT #: documented in this encounter [facility] 07-26-2023 History and physical note HISTORY AND PHYSICAL EXAMINATION SERVICE DATE: 07/26/2023 SERVICE TIME: 12:03 PM PRIMARY CARE PHYSICIAN: Rita Amanda MD REASON FOR VISIT: Minal Caputo is a 67 year old female who is scheduled for Procedure(s) (LRB): INTRAOPERATIVE ID OF SENTINEL LYMPH NODE(S) INCL'D INJECTION OF NON-RAD DYE WHEN PERFORMED (Left) BIOPSY NODE SENTINEL AXILLARY (Left) MASTECTOMY SIMPLE (Left) at the request of Dr. Heather Castillo for consultation. My final recommendation will be communicated back to the requesting physician by way of shared medical record or letter. Subjective CHIEF COMPLAINT: surgery HPI: Pt. presenting with history of abnormal mammogram with subsequent evaluation identifying Invasive lobular carcinoma of breast in female ; Pt. is recommended for surgery. Pt. currently denies any breast pain or skin changes; she reports left breast distortion and nipple displacement. PAST MEDICAL HISTORY Diagnosis Date Atrial fibrillation (HCC) GERD (gastroesophageal reflux disease) Hiatal hernia HLD (hyperlipidemia) HTN (hypertension) Obesity, unspecified Other and unspecified hyperlipidemia Scoliosis Spinal stenosis, unspecified region other than cervical PAST SURGICAL HISTORY Procedure Laterality Date , CLASSIC, IN-HOSP CARE 1980 COLONOSCOPY CURETTAGE EGD PAST SURGICAL HISTORY OF 1986 spinal instrumentation (Valadez rods) PAST SURGICAL HISTORY OF 2006 lumbar laminectomy PAST SURGICAL HISTORY OF hysteroscopy with removal of fibroid, cyst, polyps PAST SURGICAL HISTORY OF Bilateral total knee arthroplasty FAMILY HISTORY Problem Relation Age of Onset Hypertension Mother Lipids Mother Cancer Father prostate Heart Father chf Lipids Father Hypertension Father Prostate Cancer Father 70 Rectal Cancer Sister 71 Stroke Sister 28 Breast Cancer Paternal Aunt 60 - 69 Difficulty with anesthesia No Family History SOCIAL HISTORY: Social History Tobacco Use Smoking status: Never Smokeless tobacco: Never Vaping Use Vaping Use: Never used Substance Use Topics Alcohol use: Yes Comment: socially- couple times per year Drug use: No Prior to Admission medications as of 07/26/23 1214 Medication Sig Last Dose Taking atorvastatin (LIPITOR) 20 mg tablet Take 1 tablet by mouth once daily. Taking Yes losartan (COZAAR) 50 mg tablet Take 50 mg by mouth once daily. Taking Yes esomeprazole magnesium (NEXIUM ORAL) Take 20 mg by mouth once daily. Taking Yes furosemide (LASIX) 40 mg tablet Take 40 mg by mouth once daily. 80 mg every other day. Taking Yes MULTIVITAMIN ORAL Take by mouth. Taking Yes potassium chloride (K-TAB) 10 mEq tablet Take 10 mEq by mouth twice daily. Taking Yes METOPROLOL 100 MG TAB Take one(1) tablet daily. Taking Yes methotrexate 2.5 mg tablet Take 2.5 mg by mouth six times a week. Patient not taking: Reported on 07/26/2023 Not Taking letrozole (FEMARA) 2.5 mg tablet Take 1 tablet by mouth once daily. Patient not taking: Reported on 07/26/2023 Not Taking folic acid 1 mg tablet Take 1 mg by mouth once daily. Patient not taking: Reported on 07/26/2023 Not Taking naproxen (NAPROSYN) 500 mg tablet Take 1 tablet by mouth twice daily as needed. Take with food. Patient not taking: Reported on 07/26/2023 Not Taking No medication comments found. ALLERGIES Allergen Reactions Fentanyl Other: See Comments Drop in RR and drop in pulse ox to 70% Adhesive Bandages [* Rash ADHESIVE BANDAGES.. RASH Sulfa (Sulfonamide * COVID VACCINATION STATUS: Fully vaccinated REVIEW OF SYSTEMS: PAIN ASSESSMENT: General: No weight loss, malaise or fevers. Neuro: No history of TIA's, stroke, CORPORATE TUTOR tumor, impaired sensorium, hemiplegia, paraplegia or quadraplegia. No neurological symptoms or problems. Respiratory: No history of current cough or pneumonia in the past 6 weeks. 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 Endocrine: (+) borderline diabetic, thyroid nodule- monitored Hematology: No history of bleeding or clotting disorder. Pt is not taking anti-coagulation or platelet medications. No history of hematological symptoms or problems. Oncology: No history of CA metastasis, chemo within 30 days, or radiotherapy within 90 days. Has not lost 10% of body wt in 6 months. No history of oncological symptoms or problems. Psych: No history of psychiatric symptoms or problems. Musculoskeletal: Joint pain, RA Skin: Negative for lesions, rash and itching. Objective PHYSICAL EXAM: VITALS: BP 174/74 Pulse 69 Temp 97.8 Resp 17 Ht 5' 3 (1.60m) Wt 279 lb 8.7 oz (126.8kg) SpO2 95% LMP 08/26/2006 BMI 49.53 kg/(m^2). General: Alert and oriented, No acute distress, Obese Skin: Normal color, no rash, no lesions. HEENT: EOM, pupils equal, round and reactive. Oropharynx clear. Neck Supple Cardiovascular: Normal S1 & S2, 2/6 ANN MARIE at LSB. no rubs or gallops. No JVD. Pulse regular. Lungs: Normal breath sounds, no wheezes or crackles. Abdomen: Soft, non-tender, no rigidity. Extremities: No deformity, or tenderness, no joint swelling or clubbing. +1 BLE edema, chronic vascular discoloration to mid andujar No erythema or ulcers Neurological: Normal cognition and motor skills. LIM 5/5, Antalgic gait Pulses: Carotid and radial pulses normal +2. Diagnostic tests reviewed for today's visit: Lab Value Units Date High Low HB No results within date range. HCT No results within date range. WBC No results within date range. PLT No results within date range. NA No results within date range. K No results within date range. GLUC No results within date range. BUN No results within date range. CREAT No results within date range. PTSEC No results within date range. INR No results within date range. APTT No results within date range. ALT No results within date range. AST No results within date range. TBILI No results within date range. TSH No results within date range. Lab Value Units Date High Low HCGQT No results within date range. UHCG No results within date range. HCG, BODY* No results within date range. Lab Value Units Date High Low ABORHD No results within date range. ABSCREEN No results within date range. Hemoglobin A1C (%) Date Value 03/14/2022 6.3 Recent Results (from the past 8760 hour(s)) ECG COMPLETE Collection Time: 02/05/23 1:26 PM Result Value Ventricular Rate 68 Atrial Rate 68 P-R Interval 204 QRS Duration 80 QT Interval 418 QTC Calculation (Bazett) 444 Calculated P [place] 30 Calculated R [place] 13 Calculated T [place] 40 Impression NORMAL SINUS RHYTHM NORMAL ECG Confirmed by LAMINE ALY MD ([id number]) on 02/06/2023 10:07:03 AM Type of Monitor: Extended Monitoring-Zio Patch Enrollment Dates: 12/08/2021-12/09/2021 Patient had a min HR of 60 bpm, max HR of 123 bpm, and avg HR of 82bpm. Predominant underlying rhythm was Sinus Rhythm. 1 run of Supraventricular Tachycardia occurred lasting 6 beats with a max rate of102 bpm (avg 93 bpm). Episode of Supraventricular Tachycardia may bepossible Atrial Tachycardia with variable block. Isolated SVEs were rare(<1.0%), SVE Couplets were rare (<1.0%), and SVE Triplets were rare(<1.0%). Isolated VEs were rare (<1.0%), and no VE Couplets or VETriplets were present. No AF. 0 patient triggered events ZioPatch monitoring rhythm strips and any patient triggered events were reviewed. I agree with findings summarized above. John Dc MD CARE EVERYWHERE 07/02/2022 ECHO: Scan on 07/02/2022: ECHOCARDIOGRAM Interpretation Summary The left ventricular wall motion is normal. Mild concentric left ventricular hypertrophy. Ejection Fraction = 60-65%. A variety of Doppler measurements indicate impaired left ventricular relaxation, which is associated with grade I/IV or mild diastolic dysfunction. There is trace mitral regurgitation. There is no comparison study available. Procedure/Quality: A two-dimensional transthoracic echocardiogram with color flow and Doppler was performed. The study was technically good in quality. Left Ventricle: The left ventricular size is normal. Mild concentric left ventricular hypertrophy. Ejection Fraction = 60-65%. A variety of Doppler measurements indicate impaired left ventricular relaxation, which is associated with grade I/IV or mild diastolic dysfunction. The left ventricular wall motion is normal. Left Atrium: The left atrium appears normal in size. Right Atrium: The right atrium appears normal in size. Right Ventricle: The right ventricular size, thickness and function are normal. Aortic Valve: The aortic valve is normal in structure and function. No aortic regurgitation is present. Mitral Valve: The mitral valve is normal in structure and function. There is trace mitral regurgitation. Tricuspid Valve: The tricuspid valve is normal in structure and function. No tricuspid regurgitation. Pulmonic Valve: The pulmonic valve is normal in structure and function. Arteries: The aortic root is normal size. Pericardium/Pleura: No pericardial effusion seen. There is no pleural effusion. IVC/Hepatic Viens: The inferior vena cava is normal in size, with a normal collapsibility index. Measurements with Normals IVSd: 1.3 cm (0.7-1.1 cm)LVIDd: 3.4 cm (3.7-5.4 cm) LVPWd: 1.3 cm (0.7-1.1 cm)LVIDs: 2.2 cm (2.3-3.6 cm) LA dimension: 3.6 cm (2.3-4.0 cm)Ao root diam: 2.9 cm(2.0-3.6 cm) asc Aorta Diam: 3.2 cm(2.1-3.4cm) Assessment/Plan Mixed hyperlipidemia Assessment: Managed with Statin Monitored by PCP Primary hypertension Assessment: Managed with med, acceptable for surgery Date: BP: 07/26/2023 174/74 07/23/2023 181/84 02/11/2023 112/56 Monitored by PCP Palpitations Assessment: evaluated for possible atrial fibrillation on metoprolol Follows with Dr. John Dc ( Cardiology, Last office visit 02/05/2023) :No additional treatment is needed at this time. Pt. is currently Asymptomatic PETERSON (dyspnea on exertion) Assessment: Chronic, denies any worsening from baseline Does not use any inhalers RA 07/26/23 1155 SpO2: 95% GERD (gastroesophageal reflux disease) Assessment: Pt. reports symptoms controlled with medication Disorder of mitral valve Assessment: trace mitral regurgitation per 2021 ECHO (+) systolic cardiac murmur Morbid obesity (HCC) Assessment: Body mass index is 49.52 kg/m . Weight reduction encouraged. Edema Assessment: +1 BLE edema, chronic vascular discoloration to mid andujar No erythema or ulcers Managed with Lasix Idiopathic scoliosis and kyphoscoliosis Assessment: s/p surgical correction, per 01/02/2023 CXR:Thoracic dextroscoliosis in fusion rods again noted. RA (rheumatoid arthritis) ([facility]) Assessment: sero positive RA methotrexate and folic acid currently on hold Follows with Dr. Celia Lewis ( Rheumatology) METS: Walk indoors, such as around the house (1.75 METs) Do light work around the house, such as dusting or washing dishes (2.70 METs) Take care of self; that is eating, dressing, bathing, using the toilet (2.75 METs) Patient denies any chest pain or undue shortness of breath with the above physical activity. ANESTHESIA FINDINGS: Intubation History: No history of difficult intubation Significant Anesthesia Considerations: None Airway Exam: General : Obese appearance Mallampati Score is CLASS III ULBT: Class II - Lower incisors can bite the upper lip below the case line Neck: Short thick neck, FROM Distance from hyoid to mentum during neck extension is at least 3 finger breaths Mouth: Normal tongue size and Mouth opening greater than 2 finger breaths Dentition: Intact Airway History: No abnormal airway history 01/27/2023 Sleep Apnea Probability Snores loudly: No Tired, fatigued or sleepy in daytime: No Stops breathing or choking/gasping during sleep: No High blood pressure: Yes Sleep Apnea Probability Score: (Recommend sleep study) Sleep Apnea Probability Score 01/27/2023 Sleep Apnea Screen V2 56 (Recommend sleep study) PLAN This patient is optimally prepared for surgery. CONSULTS: Patient does not require consults for optimization at this time. The Following Tests/Procedures Have Been Initiated: labs per Surgeon( dated 07/23/2023) EKG not indicated per [facility] protocol See above for additional results Planned Anesthetic: Per anesthesia choice Instructions Given to Patient: Instructions located in the after visit summary. Patient given verbal and written preop instructions and voices comprehension and compliance. SIGNATURE: Maria M Mari APRN.CNP PATIENT NAME: Minal Caputo DATE: July 26, 2023 TIME: 12:03 PM documented in this encounter [facility] 07-26-2023 Instructions Maria M Mari APRN.CNP - 07/26/2023 11:17 AM EST PATIENT PREOPERATIVE INSTRUCTIONS Heather Castillo MD has scheduled you for your procedure at this surgery center: [facility] Scheduling Office: [phone] --[address] [place] [address]. Please read below carefully for your personalized instructions. Dietary Restrictions: - No solid food after midnight. - You may have 12 ounces of clear liquids (water, clear juices such as apple juice or gatorade, carbonated beverages, clear tea, black coffee -NO CREAM OR SUGAR ) until 4 hours before scheduled arrival at facility. Medications: Unless instructed differently below, stay on all of your prescription medications until your surgery. Approved medications to take the morning of surgery with a sip of water: METOPROLOL DO NOT TAKE YOUR losartan (COZAAR) THE NIGHT BEFORE OR MORNING OF SURGERY If you start any new medications after today's visit, please contact the surgeon's office. Blood Thinning Medications: - Stop NSAIDS (Ibuprofen, Advil, Aleve, Motrin, Celebrex, Mobic, etc.) 7 days before surgery, as directed by your surgeon. - Stop Aspirin 7 days before surgery, as directed by your surgeon. - Stop Vitamin E, ALL multi-vitamins, herbals and dietary supplements 7 days before surgery. - You may take Tylenol (Acetaminophen) or any of your pain medications that do not contain aspirin or NSAIDS as needed. Important Reminders: - Candy, mints, and tobacco products are NOT permitted the morning of surgery. - Hearing aids, dentures and glasses may be worn the morning of surgery. - NO jewelry, body piercings, makeup, hairpins or contacts are to be worn the day of surgery. If you develop symptoms such as a fever, cold, or flu, or have other changes to your health within TWO DAYS of scheduled surgery or the morning of surgery, please contact the surgery center above. Personal Belongings: -Please have photo ID and insurance cards. -If you do not have a copy of advance directives on file with us, please bring a copy with you on the day of surgery. - Leave ALL valuables and money at home or with family members. For Outpatient Procedures: - YOU MUST HAVE A RESPONSIBLE STUNT WOMAN TAKE YOU HOME. A PRODUCER ASSISTANT OR TOOL KEEPER CANNOT BE MADE A RESPONSIBLE STUNT WOMAN. - We recommend that a responsible person stays with you overnight to take care of you. - You cannot stay in a hotel alone after outpatient surgery. You will not be permitted to have your surgery, if you do not have someone to take care of you. Arrival Time for Surgery: - To obtain your arrival time for surgery, call your physician's office the day before your surgery. - If your surgery is scheduled for Saturday, call the Saturday before. Your surgeon s title closer will tell you what time to call the office. - If you have not reached the departmental title closer by 5 P.M., call [phone] after 5 P.M. the day before your surgery. Please be aware that emergency situations arise, which may delay or change your surgical time. If this happens, we will notify you as soon as possible and regret any inconvenience. If you already have an Advance Directive, please fax a copy to [phone] or email to for it to be added to your chart. If you do not have an Advance Directive, you can find the appropriate form and more information at [email or web address]. We recommend that you complete the Advance Directive form found on the website and bring it with you the day of your surgery. It can be witnessed and scanned into your chart that day. documented in this encounter [facility] 07-24-2023 Miscellaneous Notes Received call back from patient's remnants cutter. Recommend holding methotrexate 07/28 and resuming 08/04. Patient notified. Leatha York RN July 24, 2023 9:25 AM documented in this encounter [facility] 07-23-2023 Note [facility] 07-23-2023 Note [facility] 07-23-2023 Note [facility] 07-23-2023 Note [facility] 07-23-2023 Note [facility] 07-23-2023 Nurse Note Reviewed and confirmed with patient that there were no changes in the the nursing assessment and vitals that were completed on 07/23/2023 during previous provider appointment. Clarissa Tang LPN documented in this encounter [facility] 07-23-2023 History of Present illness Narrative Radiation Oncology - New Patient/Consult Note PATIENT NAME: Minal Caputo PATIENT REQUESTING PROVIDER: Heather Castillo MD DIAGNOSIS: 67 year old female with infiltrating lobular carcinoma of the Left breast, centrally located, clinical stage T2N0, ER-positive (80%), AR-positive (5%), and Her2/akash not amplified, s/p biopsy. Cancer Staging No matching staging information was found for the patient. HPI: 67 year old female who presents with above diagnosis, for an opinion regarding the role of radiation therapy in the management of the patient's disease. Final recommendations will be communicated back to the requesting physician by way of the shared medical record, or letter to requesting physician via US mail. The patient reports on self exam she was found to have located in the Left breast. Mammogram demonstrated: In the right breast, there are masses in the upper outer breast at anterior depth, central to the nipple at middle depth, and upper inner right breast at middle depth, which are stable and fluctuated compared to priors, favoring benign etiologies. Diffuse round and punctate calcifications are not significantly changed compared to 2019. There is a large area of architectural distortion/asymmetry in the central left breast measuring approximately 6.0 x 5.4 x 4.0 cm. There is redemonstration of diffuse round and punctate calcifications. Left breast ultrasound 04/30/2023: Limited imaging of the left breast provided for review. Of note, no images specifically identify the distance from the nipple at which they were obtained. At the left breast 4:00 axis, in the region of a palpable abnormality (indicated by the images), there is a 4.5 x 2.5 x 3.3 cm irregular, hypoechoic mass with angular margins and posterior acoustic shadowing. The imaging appears to indicate that this is approximately 1.2 cm from the nipple, although this is not definitively labeled. Other cysts are imaged. Additional hypoechoic areas are also imaged. The images provided are limited. It is likely that there is one large mass in the central breast, which is imaged at different times throughout the study from different areas. There is also skin thickening anteriorly. The axilla was not imaged. Left breast core biopsy on 06/19/2023 revealed: FINAL DIAGNOSIS A. Breast, left, core biopsy ([id number]; 06/19/2023): ---Invasive lobular carcinoma, preliminary Angela grade 1 (of 3), measuring at least 4.5 mm in greatest dimension. ---Please see comment. ER: POSITIVE (80%, strong) AR: POSITIVE (5%, moderate) HER2 IHC: NEGATIVE (0) Additional workup has included PET performed on 07/08/23 at OSH. This demonstrated: IMPRESSION: * FDG avid left breast mass compatible with known primary breast malignancy with at least three mildly FDG avid metastatic lymph nodes in the left axilla. * No evidence of FDG avid distant metastatic disease. The patient has been referred to us for consideration of radiotherapy options in the management of her disease. The patient denies any other masses, skin changes or nipple discharge. She otherwise feels well with no other complaints. Prior radiation therapy or collagen vascular disease: Yes- she has RA and takes MTX 2.5 once a week. status: Post-menopausal. ALLERGIES Allergen Reactions Fentanyl Other: See Comments Drop in RR and drop in pulse ox to 70% Adhesive Bandages [* Rash ADHESIVE BANDAGES.. RASH Sulfa (Sulfonamide * PAST MEDICAL HISTORY Diagnosis Date Atrial fibrillation (HCC) GERD (gastroesophageal reflux disease) Hiatal hernia HLD (hyperlipidemia) HTN (hypertension) Obesity, unspecified Other and unspecified hyperlipidemia Scoliosis Spinal stenosis, unspecified region other than cervical PAST SURGICAL HISTORY Procedure Laterality Date , CLASSIC, IN-HOSP CARE 1980 COLONOSCOPY CURETTAGE EGD PAST SURGICAL HISTORY OF 1986 spinal instrumentation (Valadez rods) PAST SURGICAL HISTORY OF 2006 lumbar laminectomy FAMILY HISTORY Problem Relation Age of Onset Hypertension Mother Lipids Mother Cancer Father prostate Heart Father chf Lipids Father Hypertension Father Prostate Cancer Father 70 Rectal Cancer Sister 71 Stroke Sister 28 Breast Cancer Paternal Aunt 60 - 69 Difficulty with anesthesia No Family History IRONWORKER APPRENTICE SHOP HISTORY: OB History T1 L0 SAB0 IAB0 Ectopic0 Multiple0 Live Births0 COMPLETE REVIEW OF SYSTEMS: See HPI. Complete ROS negative except as otherwise noted. PHYSICAL EXAM: General Appearance: Alert and oriented. No acute distress. HEENT: NCAT. Sclera anicteric. EOMI. Neck: Normal ROM. Chest: No respiratory distress. Musculoskeletal: No edema. Normal ROM in extremities. Neuro: Speech fluent. No focal deficits. Skin: No rashes noted ASSESSMENT AND PLAN: The clinical history, imaging findings, and pathology results were reviewed in detail with Minal Caputo and her family. The general treatment paradigm of Stage II breast cancer was discussed, with an emphasis on the role of radiation. We discussed the role of postoperative radiation therapy in the setting of a mastectomy versus breast conservation. She is going to proceed with a mastectomy without reconstruction. To provide further detail, the rationale, logistics, benefits, risks, side effects, and alternatives of radiotherapy were reviewed. We will see her again after surgery to review the pathology and finalize a radiation treatment plan. Emerald Nichols MD Radiation Oncology Resident PGY-3 Attending Note: I agree with the resident's finding and plan with the following revisions and/or additions. I have reviewed and affirmed the diagnosis. Planning on mastectomy. I discussed indications for PMRT. The logistics of radiation were discussed including acute, subacute, and chronic toxicities. The risks, benefits, alternatives, consent and personnel of radiation therapy were fully discussed with the patient. Dante Rehman MD Medical Decision Making: Problems: High: Illness/injury w/ threat to life/body function Data: Unique test result(s) reviewed: 3+ Independent interpretation of test from other physician/QHCP Risk: Moderate: Moderate risk from testing/treatment Medical Decision Making Level: 5 - High cc: Rita Amanda MD ([facility]) [address] [place] [address] Heather Castillo [address] [facility] [address] documented in this encounter [facility] 07-23-2023 Note [facility] 07-23-2023 History of Present illness Narrative Radiology Service Progress Note PATIENT NAME: Minal Caputo DATE OF SERVICE: July 23, 2023 TIME: 11:48 AM PATIENT IDENTITY VERIFICATION COMPLETED USING TWO (2) IDENTIFIERS: Name and Date of confirmed by patient verbally. FALL SCREENING: Has the patient had 2 falls in the last year or 1 fall with injury or currently using an Ambulatory Assistive Device (Walker, Cane, Wheelchair, Crutches, etc.)? No PATIENT GENDER DATA: Female. status: : No status: NO. PATIENT RELEVANT IMPLANT DATA REVIEWED: Yes RADIOLOGY DEPARTMENT: Mammography PERIPHERAL IV DATA: Not applicable SIGNED BY: RT Jeff(R) July 23, 2023 11:48 AM documented in this encounter [facility] 07-17-2023 Miscellaneous Notes Addended by: LEATHA YORK on: 07/17/2023 12:12 PM Modules accepted: Orders documented in this encounter [facility] 07-12-2023 Miscellaneous Notes July 12, 2023 Message sent to [employer], patient is interested in having done. Milton Mcintosh RN July 12, 2023 Requested imaging/path slides from: left detailed message requesting a callback for imaging FACILITY: [facility] [employer] [facility] [address] [place] [address] Pathology Request date: July 12, 2023 FEDEX#: [id number] breast imaging requested [facility] [address] [facility] [address] [place] [id number] July 12, 2023 Spoke with orlando Lynn via telephone and obtained the following information pertinent to upcoming appointment. Diagnosis: Final Pathologic Diagnosis Left breast core biopsy: INVASIVE MAMMARY CARCINOMA. Histologic Delevan grade 2 (tubule formation 3, nuclear pleomorphism 2, mitotic activity 1; total score 6/9). See comments. Date of Diagnosis: 06/19/23 [facility] [employer] [facility] [address] [place] [address] Referring Physician: Rita Amanda MD Breast MRI: patient was unable to complete due to being handicap was told to have a MBI Obstetric/Gynecological History: updated in chart Bra size 50B Medical History: updated in chart Surgical History: updated in chart Family History: updated in chart Family History Problem Relation Age of Onset Hypertension Mother Lipids Mother Cancer Father prostate Heart Father chf Lipids Father Hypertension Father Prostate Cancer Father 70 Rectal Cancer Sister 71 Stroke Sister 28 Breast Cancer Paternal Aunt 60 - 69 Difficulty with anesthesia No Family History Medication History: updated in chart Current Health History (past 2 weeks): Have you had any of the following symptoms: Unintentional weight loss no Headache no Vision Changes: no Chest Pain: no Shortness of Breath: no Cough: no Swelling in leg(s): no Ashkenazi Tenriism Decent? No History of genetic testing? No genetic testing done, patient is interested Message was sent to Jesus Otoole to add patient for an appointment. Notes/Comments: Milton Mcintosh RN July 12, 2023 documented in this encounter [facility] 02-08-2023 Miscellaneous Notes Greetings, Dr. Son reached out to Dr. Crow Sousa. He used to be with us as a total joint replacement doctor and moved his practice over to [facility]. He is willing to see you and do evaluation. His office number is [phone]. His office address is [place] [id number]. He does also go to a office on [address] in [place] just confirm with them what office you will be at. Let us know if there is anything else we can help you with. Stay safe and well. Thank you Leslie with Dr. Son documented in this encounter [facility] 02-07-2023 Note [facility] 02-05-2023 Note [facility] 01-30-2023 History and physical note Patient notes a recent ED visit. Her heart rate has been ranging from 23-127 bpm. She has been trying to get in to cardiology but was told there were no appointments until July 2023. I have called her hearing aid technician's office and have secured her an appointment for next week. She is aware of the appointment. Message sent to [facility] schedulers to cancel virtual [facility] appointment and reschedule to an in-person appointment. Patient also provided schedulers number. Thank you, Elida Craft PA-C [facility] documented in this encounter [facility] 01-30-2023 Miscellaneous Notes Rigoberto, Please cancel her virtual [facility] appointment and reschedule her for an in-person [facility] visit due to her significant heart rate variations of 23-127 bpm. I have helped secure her a cardiology appointment prior to her procedure. DOS: 02/11/2023 Thank you, Elida Craft PA-C [facility] documented in this encounter [facility] 12-07-2022 Evaluation note Encounter Date Diagnosis Assessment Notes Nov, Bronchitis (ICD-10 - J40) Acute bronchitis material was printed Drink plenty fluids, get plenty of rest. Take the doxycycline as prescribed until gone. Continue home medications as prescribed. Follow-up with your family physician if no improvement in 2 to 3 days. Go to the ER for worsening symptoms or concerns. [employer] Other 04-10-2023 Evaluation note* Encounter Date Diagnosis Assessment Notes Treatment Notes Treatment Clinical Notes Nov, Contact with and (suspected) exposure to covid-19 (ICD-10 - Z20.822) Nov, Viral URI with cough (ICD-10 - J06.9) Advised patient that rapid COVID/Influenza A/B test was negative today. Patient reports that she saw her PCP and was being treated as a COPD exacerbation. Advised that we will send in Rx of prednisone, albuterol inhaler, and Tessalon Perles to use as directed. Advised that often you do not get fevers with COPD exacerbations, advised that we will treat as viral URI. Advised that symptoms may last 7 to 10 days, antibiotics are not indicated at this time. Supportive care as directed, increase fluids and rest, Tylenol/Motrin as directed, OTC cough/cold remedies as directed on packaging, cool mist humidifier, throat lozenges. Discussed infection control practices such as good hand washing and mask wearing. Patient to follow up with PCP if symptoms persist or worsen despite treatment. Work note provided, may extend x1 day if needed. Immediate eval for SOB, difficulty breathing, chest pain, fevers that do not break with antipyretic or any other concerning symptoms as reviewed on patient education handout. Patient verbalizes understanding and is agreeable to treatment plan. Patient left in stable condition. [facility] Other 01-25-2023 Instructions* Patient Instructions* Nell Trujillo APRN.ANESTHESIOLOGY RESIDENT - 09/19/2022 7:13 AM EST Images from the original note were not included. Thank you for seeing me in clinic today. As we discussed, my recommendations are as follows: 1.EGD 2.Colonoscopy 3.Continue Nexium If you have any questions about the above treatment plan, please do not hesitate to call the officeor send me a [employer] message. Bowel Preparation Instructions for: Golytely, Nulytely, Trilyte or Colyte (polyethylene glycol 3350and electrolytes) IF YOU DO NOT FOLLOW THESE DIRECTIONS, YOUR COLONOSCOPY WILL BE CANCELLED. Barnes Instructions: Your bowel must be empty so that your doctor can clearly view your colon. Follow all of the instructions in this handout EXACTLY as they are written. Do NOT eat any solid food the ENTIRE day before your colonoscopy. Drink only clear liquids. Buy your bowel preparation at least 5 days before your colonoscopy. TRANSPORTATION on the Day of Your Exam A responsible person MUST be present with you at Check In prior to your colonoscopy and REMAIN in the endoscopy area until you are discharged. You are NOT ALLOWED to drive, take a taxi or bus, or leave the Endoscopy Center ALONE. If you do not have a responsible interstate bus driver (family member or friend) with you to take you home, your exam cannot be done with sedation and will be cancelled. Please bring a list of all of your current medications, including any Over-the Counter medications with you. Medications If you take insulin, diabetic medications or blood thinners such as Coumadin (warfarin), Plavix (clopidogrel), Ticlid (ticlopidine hydrochloride), Agrylin (anagrelide), Xarelto (Rivaroxaban), Pradaxa(Dabigatran), Eliquis (Apixaban), and Effient (Prasugrel). You MUST call the doctors who orders those medicines for instructions on altering the dosage before your colonoscopy. All other medications should be taken the day of the exam with a sip of water including ASPIRIN. Five (5) Days Before Your Colonoscopy Do NOT take medicines that stop diarrhea - such as Imodium, Kaopectate, or Pepto Bismol. Do NOT take fiber supplements - such as Metamucil, Citrucel, or Perdiem. Do NOT take products that contain iron - such as multi-vitamins (the label lists what is in the products). Do NOT take Vitamin E. Buy the prescription bowel preparation solution at your local pharmacy or drugstore pharmacy. 07/2019 Bowel Preparation Instructions for: Golytely, Nulytely, Trilyte or Colyte (polyethylene glycol 3350and electrolytes) Three (3) Days Before Your Colonoscopy Do NOT eat high-fiber foods - such as popcorn, beans, seeds (flax, sunflower, quinoa), multigrain bread, nuts, salad/vegetables, or fresh and dried fruit. One (1) Day Before Your Colonoscopy Only drink clear liquids the ENTIRE DAY before your colonoscopy. Do NOT eat any solid foods. Drink at least 8 ounces of clear liquids every hour after waking up. The clear liquids you can drink include: Clear Liquid (NO RED LIQUIDS) DO NOT DRINK Gatorade, Pedialyte or Powerade Clear broth or bouillon Coffee or tea (no milk or non-dairy creamer) Carbonated and non-carbonated soft drinks Conner-Aid or other fruit flavored drinks Strained fruit juices (no pulp) Jell-O, popsicles, hard candy Water Alcohol Milk or non-dairy creamers Noodles or vegetables in soup Juice with pulp Liquid you cannot see through Do not use tobacco/vaping products The bowel preparation solution will be consumed in two parts. Mix the solution the evening before your colonoscopy and refrigerate before drinking. You may add the flavor pack that came with the bowel preparation. Do NOT add ice, sugar or any other flavorings to the solution. Part 1 At 6:00 PM - Evening before your colonoscopy Drink an 8-oz glass of bowel preparation every 10 minutes for a total of 8 glasses. You may continue to drink clear liquids until midnight. Part 2 On the day of your colonoscopy you may drink clear liquids up to (three) 3 hours before your procedure. 4 1/2 hours before your colonoscopy Drink an 8-oz glass of bowel preparation every 10 minutes for a total of 8 glasses. Fifteen (15) minutes later, drink an 8-oz glass of clear liquids every 15 minutes for a total of 2 glasses. You may continue to drink clear liquids up to (three) 3 hours before your exam. 2 07/2019 [facility] History and physical note * Nell Trujillo APRN.CNP - 09/19/2022 7:00 AM EST DISTANCE HEALTH VISIT This Team Access Model visit is a virtual encounter. It required patient- provider interaction for the medical decision making as documented below. REASON FOR VISIT: GERD and screening for colon cancer HPI: Minal Caputo is a 66 year old female who presents for GERD and screening for colon cancer. She admits to longstanding history of heartburn and reflux that is well controlled on Nexium OTC 20 mg daily. Her last endoscopy was in 2016 and revealed a 3 cm hiatal hernia. She states she is very concerned regarding her hiatal hernia as she was told after her last endoscopy that it was very largeand she would eventually need surgery. She denies smoking and endorses social alcohol intake. She does take naproxen approximately 2-3 times per month. She is due for a colonoscopy for CRC screening. Her last colonoscopy was in 2016 and revealed hemorrhoids and benign polyps. She denies family history of colon cancer. She denies unintentional weightloss, hematochezia, melena, nausea and vomiting. Past Clinical Work-Up: COLON 07/23/2016: - Non-thrombosed external hemorrhoids and internal hemorrhoids (Grade I) found on perianal exam. - The examined portion of the ileum was normal. - One 4 mm polyp in the cecum. Resected and retrieved. - One 4 mm polyp in the ascending colon. Resected and retrieved. - Diverticulosis in the sigmoid colon, in the descending colon, at the splenic flexure, in the transverse colon, at the hepatic flexure, in the ascending colon and in the cecum. Path: 1. Cecal polyp, biopsy (A) - Colonic mucosa with intramucosal lymphoid aggregate (see comment). 2. Ascending colon polyp, biopsy (B) - Hyperplastic polyp. 3. Stomach, fundus, polyp, biopsy (C) - Fundic gland polyp, negative for dysplasia. LABS: Component Latest Ref Rng & Units 03/16/2022 WBC 3.70 - 11.00 k/uL 8.66 RBC 3.90 - 5.20 m/uL 4.65 Hemoglobin 11.5 - 15.5 g/dL 14.2 Hematocrit 36.0 - 46.0 % 42.7 MCV 80.0 - 100.0 fL 91.8 MCH 26.0 - 34.0 pg 30.5 MCHC 30.5 - 36.0 g/dL 33.3 RDW-CV 11.5 - 15.0 % 13.8 Platelet Count 150 - 400 k/uL 263 MPV 9.0 - 12.7 fL 9.9 Neut% % 44.7 Abs Neut (ANC) 1.45 - 7.50 k/uL 3.88 Lymph% % 44.0 Abs Lymph 1.00 - 4.00 k/uL 3.81 [place]% % 7.9 Abs [place] <0.87 k/uL 0.68 Eosin% % 2.4 Abs Eosin <0.46 k/uL 0.21 Baso% % 0.5 Abs Baso <0.11 k/uL 0.04 Immature Gran % % 0.5 IMMATURE GRANS (ABS) <0.10 k/uL 0.04 NRBC /100 WBC 0.0 Absolute nRBC <0.01 k/uL <0.01 DTYPE Auto Glucose 74 - 99 mg/dL 107 (H) BUN 7 - 21 mg/dL 24 (H) Creatinine 0.58 - 0.96 mg/dL 0.97 (H) Sodium 136 - 144 mmol/L 142 Potassium 3.7 - 5.1 mmol/L 4.3 Chloride 97 - 105 mmol/L 104 CO2 22 - 30 mmol/L 24 Anion Gap 9 - 18 mmol/L 14 Calcium 8.5 - 10.2 mg/dL 8.4 (L) eGFR >=60 mL/min/1.73m 64 ALLERGIES Allergen Reactions Fentanyl Other: See Comments Drop in RR and drop in pulse ox to 70% Adhesive Bandages [* Rash ADHESIVE BANDAGES.. RASH Sulfa (Sulfonamide * PAST MEDICAL HISTORY Diagnosis Date Atrial fibrillation (HCC) GERD (gastroesophageal reflux disease) Hiatal hernia HLD (hyperlipidemia) HTN (hypertension) Obesity, unspecified Other and unspecified hyperlipidemia Scoliosis Spinal stenosis, unspecified region other than cervical PAST SURGICAL HISTORY Procedure Laterality Date , CLASSIC, IN-HOSP CARE 1980 CURETTAGE PAST SURGICAL HISTORY OF 1986 spinal instrumentation (Valadez rods) PAST SURGICAL HISTORY OF 2006 lumbar laminectomy FAMILY HISTORY Problem Relation Age of Onset Hypertension Mother Lipids Mother Cancer Father prostate Heart Father chf Lipids Father Hypertension Father Social History Tobacco Use Smoking status: Never Smokeless tobacco: Never Vaping Use Vaping Use: Never used Substance Use Topics Alcohol use: Yes Comment: socially- couple times per year Drug use: No Current Outpatient Medications Medication Sig methylPREDNISolone (MEDROL DOSE-PACK) 4 mg Dose-Pack As Instructed per package naproxen (NAPROSYN) 500 mg tablet Take 1 tablet by mouth twice daily as needed. Take with food. atorvastatin (LIPITOR) 20 mg tablet Take 1 tablet by mouth once daily. losartan (COZAAR) 50 mg tablet Take 50 mg by mouth once daily. esomeprazole magnesium (NEXIUM ORAL) Take 20 mg by mouth once daily. furosemide (LASIX) 40 mg tablet MULTIVITAMIN ORAL Take by mouth. potassium chloride (K-TAB) 10 mEq tablet Take 10 mEq by mouth twice daily. METOPROLOL 100 MG TAB Take one(1) tablet daily. Current Facility-Administered Medications Medication Dose Route Frequency perflutren lipid microspheres 1.3 mL in NaCl (PF) 0.9% 10 mL injection (DEFINITY) INTRAVENOUS DIRECTED PRN sodium chloride 0.9 % (flush) 10 mL (BD POSIFLUSH) 10 mL INTRAVENOUS DIRECTED PRN I have confirmed and edited, if necessary, the PFSH obtained by others. REVIEW OF SYSTEMS: GENERAL: No weight loss, malaise or fevers RESPIRATORY: Negative for cough, wheezing and hemoptysis + SOB on exertion CARDIOVASCULAR: Negative for chest pain, leg swelling, hypertension, CHF or palpitations GI: No nausea, vomiting, or diarrhea PHYSICAL EXAM: Patient reported height 62 in and weight 280 lbs General - Normal, cooperative, in no acute distress, obese Able to interact verbally by video conference Psych - ORIENTATION: normal to time place, person and situation Mood/Affect: AFFECT AND MOOD: Normal Head/Neuro - Normal size and shape Facial appearance normal Pulmonary - respiratory effort normal Cardiovascular - patient describes extremities normal, warm, no cyanosis,no clubbing, and no edema Abdominal - Not performed Skin - abnormal lesions not visualized Motor - patient seen sitting with Normal appearing strength and coordination ASSESSMENT/PLAN: Ms. Caputo is a 66 year old female with a history of A. fib, GERD, HLD, HTN, obesity and scoliosis presents for colonoscopy consult and GERD. She admits that her GERD is well controlled on Nexium 20 mg OTC daily. She is requesting EGD for further evaluation of her hiatal hernia as she was told in the past that it is very large and will eventually require surgery. Her last EGD was in 2016 and revealed a 3 cm hiatal hernia. A colonoscopy was also ordered as she is due for CRC screening. Procedure/risks were discussed with the patient in great detail including the risk of sedation and bleeding. Patient is agreeable with proceeding and instructed to call with any questions or concerns. ASSESSMENT/PLAN: 1. Gastroesophageal reflux disease, unspecified whether esophagitis present - ICD9: 530.81, ICD10: K21.9 (primary diagnosis) - Discussed lifestyle modifications including losing weight, limiting caffeine, no meals three hours before sleep, and head of bed elevation - EGD DIAGNOSTIC -Continue Nexium 20 mg OTC daily 2. Screening for colon cancer - ICD9: V76.51, ICD10: Z12.11 - PEG 3350-ELECTROLYTES 236 GRAM-22.74 GRAM-6.74 GRAM-5.86 GRAM SOLUTION - COLONOSCOPY SCREENING 3. Hiatal hernia - ICD9: 553.3, ICD10: K44.9 - EGD DIAGNOSTIC -Continue Nexium 20 mg OTC daily I spent more than 30 minutes [id number] with the patient and over half the time was devoted to counseling and/or coordination of care. This note was dictated using [employer] speech recognition software and may contain some errors that were a result of the program not accurately transcribing what was dictated. Nell Trujillo APRN.CNP documented in this encounterChildren'S [facility] Rehabilitation01-12-2023 History of Present illness Narrative* Micah Son DO - 09/06/2022 3:10 PM ESTAssociated Order(s): Large Joint Arthro/Inj: L hip joint Post-Procedure Diagnose(s): Primary osteoarthritis of left hip Patient presents for a left hip injection. Large Joint Arthro/Inj: L hip joint Informed Consent Consent Obtained: Verbal [place] Protocol A moment to CARE was completed. SIGN IN Personnel directly involved with the procedure wore the appropriate PPE. Special Equipment: N/A Patient/Surrogate Stated/Verified: Patient name, Date of , Relevant allergies and Intended procedure TIME OUT Intended patient and procedure match the source document(s). Consent documented and matches the intended procedure. No relevant labs, photos, and/or imaging studies were applicable for review. Correct side/site marked and visible. Medications required for procedure verified. No fire risk assessment and interventions applicable. No implant(s) inserted. 09/06/2022 3:10 PM The procedure site was prepped in the usual sterile fashion. Site: L hip joint Details:Musculoskeletal ultrasound was utilized to successfully localize placement of the injectionneedle at the appropriate site. Ultrasound images demonstrating local vasculature and demonstratinginjection of solution were saved. Medications: 40 mg triamcinolone acetonide 40 mg/mL Anesthetics: 4 mL lidocaine (PF) 10 mg/mL (1 %) Outcome: Tolerated well, no immediate complications Post-injection instructions were reviewed with the patient and the patient voiced understanding of these instructions. SIGN OUT No specimen collected. No instruments, equipment or retained foreign bodies applicable. Post-procedure follow-up management communicated and Plan of Care Visit completed when applicable (M16.12) Primary osteoarthritis of left hip (primary encounter diagnosis) Micah Son DO 09/06/2022 documented in this encounterChildren'S [facility]10-23-2022 Evaluation note* Encounter Date Diagnosis Assessment Notes Treatment Notes Treatment Clinical Notes May, Cough (ICD-10 - R05.9) May, COVID-19 (ICD-10 - U07.1) Today you tested positive for the COVID virus. This mean you need to follow all CDC quarantine guidelines [email or web address] It is important to rest, increase fluids, and stay at home. Recommend contacting primary care provider and discussing best course of action if you have chronic health conditions. COVID POSITIVE education handout discharge instructions. given., Discharge Instructions for COVID-19 (Suspected or Confirmed ) material was printed May, Bronchitis (ICD-10 - J40) Take medications as directed. Rest and increase fluid intake. Take meds with food to prevent stomach upset. Use inhaler as needed for coughing spells and SOB. It is better to use inhaler a few times a day over the next 2-3 days. Follow up with primary care provider if symptoms do not improve with treatment plan, although it may take a few weeks for the cough to go away [employer] Other 08-09-2022 History of Present illness Narrative* Shailesh Izquierdo MD - 04/03/2022 1:24 PM EDT Patient presents with: Left Hip - New, Pain HPI: Location: Left Hip Duration: 1 year Intensity severe /10 Quality dull radiates to groin Better or Worse: worse with activity better with rest PAST MEDICAL HISTORY Diagnosis Date Atrial fibrillation (HCC) GERD (gastroesophageal reflux disease) Hiatal hernia HLD (hyperlipidemia) HTN (hypertension) Obesity, unspecified Other and unspecified hyperlipidemia Scoliosis Spinal stenosis, unspecified region other than cervical PAST SURGICAL HISTORY Procedure Laterality Date , CLASSIC, IN-HOSP CARE 1980 CURETTAGE PAST SURGICAL HISTORY OF 1986 spinal instrumentation (Valadez rods) PAST SURGICAL HISTORY OF 2006 lumbar laminectomy Current Outpatient Medications Medication Sig Dispense Refill methylPREDNISolone (MEDROL DOSE-PACK) 4 mg Dose-Pack As Instructed per package 1 Package 0 naproxen (NAPROSYN) 500 mg tablet Take 1 tablet by mouth twice daily as needed. Take with food. 60 tablet 1 atorvastatin (LIPITOR) 20 mg tablet Take 1 tablet by mouth once daily. 30 tablet 2 losartan (COZAAR) 50 mg tablet Take 50 mg by mouth once daily. esomeprazole magnesium (NEXIUM ORAL) Take 20 mg by mouth once daily. furosemide (LASIX) 40 mg tablet MULTIVITAMIN ORAL Take by mouth. potassium chloride (K-TAB) 10 mEq tablet Take 10 mEq by mouth twice daily. METOPROLOL 100 MG TAB Take one(1) tablet daily. 0 0 Current Facility-Administered Medications Medication Dose Route Frequency Provider Last Rate Last Admin perflutren lipid microspheres 1.3 mL in NaCl (PF) 0.9% 10 mL injection (DEFINITY) INTRAVENOUS DIRECTED PRN John Dc MD sodium chloride 0.9 % (flush) 10 mL (BD POSIFLUSH) 10 mL INTRAVENOUS DIRECTED PRN John Dc MD FAMILY HISTORY Problem Relation Age of Onset Hypertension Mother Lipids Mother Cancer Father prostate Heart Father chf Lipids Father Hypertension Father ROS: + for arthritis limp limb pain no fevers chills CP or SOB. PE: General: well developed well nourished appears stated age Resp: nonlabored Abd: nontender Left Hip: is stable on vexam ROM 5 to 90 degrees DF PF EHL intact DP PT 2 + Edema no Effusion no Gait: limp + severe uses a wheelchair Mood: euthymic Coordination: normal 04/03/22 1317 Weight: 127 kg (280 lb) Height: 157.5 cm (5' 2 ) Imaging: reveals severe left hip OA. I have reviewed and interpreted films personally Labs: Hemoglobin A1C (%) Date Value 03/14/2022 6.3 No results found for: CRP AP: 66 year old woman with severe left hip pain and osteoarthritis. I have asked the patient to consider serious weight loss before pursuing surgery due to risk of infection or early failure. documented in this encounterChildren'S [facility]08-04-2022 History of Present illness Narrative* Kristin Franz RDMS, RVT - 03/29/2022 4:15 PM EDT Radiology Service Progress Note PATIENT NAME: Minal Caputo DATE OF SERVICE: March 29, 2022 TIME: 4:31 PM PATIENT IDENTITY VERIFICATION COMPLETED USING TWO (2) IDENTIFIERS: Name and Date of confirmedby patient verbally and Name and Date of confirmed by identification band. FALL SCREENING: Has the patient had 2 falls in the last year or 1 fall with injury or currently using an Ambulatory Assistive Device (Walker, Cane, Wheelchair, Crutches, etc.)? Yes, Patient High Riskfor Falls What interventions were put in place to prevent falls during this visit? [place] Falls Risk Wristband Applied, Instructed Patient to Call for Help if Needed, Offered Assistance with Transfers/Clothing and Instructed Patient to Remain Seated (Not on Exam Table) Until Exam PATIENT GENDER DATA: Female. status: Unknown status: N/A PATIENT RELEVANT IMPLANT DATA REVIEWED: Not Applicable RADIOLOGY DEPARTMENT: Ultrasound PERIPHERAL IV DATA: Not applicable SIGNED BY: Kristin Franz RDMS, LUIS March 29, 2022 4:31 PM documented in this encounterChildren'S [facility] Rehabilitation08-01-2022 Miscellaneous Notes* Telephone Encounter - Nikko Brown - 03/26/2022 12:00 PM EDT Physical therapy order sent to [facility] via fax. documented in this encounterChildren'S [facility]07-29-2022 History of Present illness Narrative* Nayan Yan, - 03/23/2022 3:42 PM EDT SERVICE DATE: March 23, 2022 PCP: Rita Amanda MD Patient was self-referred. Subjective Patient ID: Minal is a 66 year old female. Here today with complaints of continued left hip pain. She unfortunately got short-term relief from her intra- articular corticosteroid injections. Her pain now is affecting all of her activities of daily living and she has marked difficulty in even going up and down stairs or getting up and out out of a chair. All of her pain is in her left groin. 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 Osteoarthritis of Both Knees Obesity, Class III, BMI >= 40 E66.01 Arthritis of Both Knees Oa (Osteoarthritis) of Knee Acute Post-Operative Pain S/P Tkr (Total Knee Replacement) Using Cement, Bilateral H/O Total Knee Replacement, Bilateral Right Arm Weakness Atrial Tachycardia, Paroxysmal (Hcc) Copd (Chronic Obstructive Pulmonary Disease) (Hcc) Gerd (Gastroesophageal Reflux Disease) PAST MEDICAL HISTORY Diagnosis Date Atrial fibrillation (HCC) GERD (gastroesophageal reflux disease) Hiatal hernia HLD (hyperlipidemia) HTN (hypertension) Obesity, unspecified Other and unspecified hyperlipidemia Scoliosis Spinal stenosis, unspecified region other than cervical PAST SURGICAL HISTORY Procedure Laterality Date , CLASSIC, IN-HOSP CARE 1980 CURETTAGE PAST SURGICAL HISTORY OF 1986 spinal instrumentation (Valadez rods) PAST SURGICAL HISTORY OF 2006 lumbar laminectomy FAMILY HISTORY Problem Relation Age of Onset Hypertension Mother Lipids Mother Cancer Father prostate Heart Father chf Lipids Father Hypertension Father Social History Tobacco Use Smoking status: Never Smoker Smokeless tobacco: Never Used Vaping Use Vaping Use: Never used Substance Use Topics Alcohol use: Yes Comment: socially- couple times per year Drug use: No ALLERGIES Allergen Reactions Fentanyl Other: See Comments Drop in RR and drop in pulse ox to 70% Adhesive Bandages [* Rash ADHESIVE BANDAGES.. RASH Sulfa (Sulfonamide * MEDICATIONS: methylPREDNISolone (MEDROL DOSE-PACK) 4 mg Dose-Pack As Instructed per package naproxen (NAPROSYN) 500 mg tablet Take 1 tablet by mouth twice daily as needed. Take with food. atorvastatin (LIPITOR) 20 mg tablet Take 1 tablet by mouth once daily. losartan (COZAAR) 50 mg tablet Take 50 mg by mouth once daily. esomeprazole magnesium (NEXIUM ORAL) Take 20 mg by mouth once daily. furosemide (LASIX) 40 mg tablet MULTIVITAMIN ORAL Take by mouth. potassium chloride (K-TAB) 10 mEq tablet Take 10 mEq by mouth twice daily. METOPROLOL 100 MG TAB Take one(1) tablet daily. Allergies, medications, past surgical history, family history and past medical history were reviewed per this encounter. Objective Ortho Exam alert pleasant female oriented x3. She has no increase in flexion its in from sitting position she cannot flex past 90. She has 10 degrees of internal and external rotation at 90 degrees flexion. Markedly positive for very Meño's noted. She has very little abduction and adduction. Neurovascular is otherwise intact into her left lower extremity with satisfactory range of motion of her knee and ankle. Assessment/Plan ASSESSMENT Diagnosis (M16.12) Primary osteoarthritis of left hip (primary encounter diagnosis) Plan: XR HIP GENERAL 3V PELV/AP/LAT LEFT, CONSULT TO ORTHOPAEDICS Office Visit on 03/23/22 XR HIP GENERAL 3V PELV/AP/LAT LEFT CONSULT TO ORTHOPAEDICS PLAN I recommend she be seen by an arthroplasty surgeon. FOLLOW-UP: Return Call to orthopedics. I reviewed the information obtained and documented by the me. I examined the patient and evaluated all available films and pertinent documents. We discussed the case and I agree with the plans as outlined in this note. SIGNATURE: Nayan Yan DO PATIENT NAME: Minal Caputo DATE: March 23, 2022 TIME: 3:48 PM documented in this encounterChildren'S [facility]07-25-2022 Instructions* Patient Instructions* Alberto Monsalve DO - 03/19/2022 4:28 PM EDT Do not take Naproxen or other NSAIDs while taking the oral steroid Medrol dose pack. Call [phone] to schedule appointment with Spine Surgery. documented in this encounterChildren'S [facility]07-25-2022 History of Present illness Narrative* Alberto Monsalve DO - 03/19/2022 3:37 PM EDT Images from the original note were not included. [facility] Spine Initial Exam SUBJECTIVE HISTORY OF PRESENT ILLNESS: Minal Caputo is a 66 year old female who presents with a chief complaint of neck and arm pain and is seen in consultation requested by Dr. Lopez Salmon for an opinion regarding cervical spine. My final recommendations will be communicated back to the requesting physician by way of shared medical record or letter via US mail. Pain began 03/12/22 located right shoulder blade without inciting event. The next day pain was radiating to the RUE and then developed weakness. Denies prior episodes. She was seen in local hospital 03/13/22 and transferred to [facility] on 03/14/22. Since then the right arm is not as weak, but he right hand is still weak. Difficulty holding pen or straightening fingers. Difficulty moving right hand and digits. Now has pain posterior neck distally, right shoulder blade, intermittent pain right arm posteriorlyshoulder to elbow, denies pain in forearm. Denies any left sided symptoms. Denies any balance impairment. She has plans to start PT, OT outpatient local to her next week. Denies bowel/bladder incontinence or saddle anesthesia. PAIN EVALUATION No data found in the last 1 encounters. Current Treatment: Medications none Therapies none Prior Treatment: Medications 125mg of solumedrol in the ED 03/13/22 Therapies none Prior spine interventions: -h/o lumbar injections prior to surgery Prior spine surgery: -05/07/07 Dr. Baker: L4-5 laminectomy and PSF -Thoracic scoliosis surgery Previously treated by: -Neurology Dr. Salmon while hospitalized February 2022. -Spine Surgery Dr. Baker. PMH: Scoliosis CTS right hand, wears resting splint at night A-fib HTN, HLD COPD h/o cancer: denies PSH: BL TKA 03/31/18 Dr. 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 Higher percentile rankings indicate better function/quality of life. 50th percentile is the average of the general population and indicates half of respondents had a worse score. Depression Screening: PHQ-9 01/10/2010 Score 4 PHQ-9 Self-Harm (Item 9) response options: 0 Not at all 1 Several days 2 More than half the days 3 Nearly every day PHQ-9 Levels: 0-4 No - mild depression 5-9 Mild depression 10-14 Moderate depression 15-19 Moderately severe depression 20-27 Severe depression ACTIVE PROBLEM LIST Spinal Stenosis, Unspecified Region Other Than Cervical Mixed Hyperlipidemia Obesity, unspecified Undiagnosed Cardiac Murmurs Asa Class II Mitral Valve Disorders(424.0) Idiopathic Scoliosis and Kyphoscoliosis Primary Osteoarthritis of Both Knees Obesity, Class III, BMI >= 40 E66.01 Arthritis of Both Knees Oa (Osteoarthritis) of Knee Acute Post-Operative Pain S/P Tkr (Total Knee Replacement) Using Cement, Bilateral H/O Total Knee Replacement, Bilateral Right Arm Weakness Atrial Tachycardia, Paroxysmal (Hcc) Copd (Chronic Obstructive Pulmonary Disease) (Hcc) Gerd (Gastroesophageal Reflux Disease) PAST MEDICAL HISTORY Diagnosis Date Atrial fibrillation (HCC) GERD (gastroesophageal reflux disease) Hiatal hernia HLD (hyperlipidemia) HTN (hypertension) Obesity, unspecified Other and unspecified hyperlipidemia Scoliosis Spinal stenosis, unspecified region other than cervical PAST SURGICAL HISTORY Procedure Laterality Date , CLASSIC, IN-HOSP CARE 1980 CURETTAGE PAST SURGICAL HISTORY OF 1986 spinal instrumentation (Valadez rods) PAST SURGICAL HISTORY OF 2006 lumbar laminectomy Social History Tobacco Use Smoking status: Never Smoker Smokeless tobacco: Never Used Vaping Use Vaping Use: Never used Substance Use Topics Alcohol use: Yes Comment: socially- couple times per year Drug use: No FAMILY HISTORY Problem Relation Age of Onset Hypertension Mother Lipids Mother Cancer Father prostate Heart Father chf Lipids Father Hypertension Father ALLERGIES Allergen Reactions Fentanyl Other: See Comments Drop in RR and drop in pulse ox to 70% Adhesive Bandages [* Rash ADHESIVE BANDAGES.. RASH Sulfa (Sulfonamide * CURRENT MEDICATIONS: atorvastatin (LIPITOR) 20 mg tablet Take 1 tablet by mouth once daily. losartan (COZAAR) 50 mg tablet Take 50 mg by mouth once daily. esomeprazole magnesium (NEXIUM ORAL) Take 20 mg by mouth once daily. furosemide (LASIX) 40 mg tablet MULTIVITAMIN ORAL Take by mouth. potassium chloride (K-TAB) 10 mEq tablet Take 10 mEq by mouth twice daily. METOPROLOL 100 MG TAB Take one(1) tablet daily. predniSONE (DELTASONE) 10 mg tablet REVIEW OF SYSTEMS: 14 systems reviewed and otherwise negative unless mentioned above. OBJECTIVE: PHYSICAL EXAM BP 174/81 Pulse 104 Wt 125.8 kg (277 lb 6.4 oz) LMP 08/26/2006 (Approximate) BMI 50.74 kg/m GENERAL APPEARANCE: Well nourished, well developed, and no apparent distress. NEURO PSYCH: Patient oriented to person, place, and time. Mood pleasant. Benign affect. CARDIOVASCULAR: Palpable pulses. No edema noted. RESPIRATORY: non-labored breathing, no grunting/flaring/retractions SKIN: Head, neck, trunk, and extremities dry, intact and without lesions. MUSCULOSKELETAL VISUAL INSPECTION Posture: normal posture and alignment PALPATION: tenderness to palpation midline cervicothoracic junction and right scapular region is severe SPINE ROM: CERVICAL ROM: WFL MUSCLE BULK: Normal and symmetrical in the upper & lower extremities. MUSCLE TONE: Normal. MOTOR: 4+/5 right wrist flexion and 5-/5 right wrist extension, both 5/5 on the left. 3/5 right hand seo professional strength, 5/5 on the left Remnants Cutter strength significantly weaker on right compare to le 5/5 bilateral shoulder abduction, elbow flexion, elbow extension, wrist extension, wrist flexion, digit abduction, seo professional strength. SENSORY: sensation intact to light touch BUE (notes from hospitalization February 2022 noted sensory loss right hand digits 1-3 and pinprick lateral arm) REFLEXES: 2+ bilateral UE, LE. LONG TRACT SIGNS: No Hoffmans. GAIT: Bent forward, Antalgic favoring LLE. Able to stand on toes and heels. Able to perform tandem gait. PERIPHERAL JOINT ROM: SHOULDER ROM: WFL L'HERMITTES SIGN: Negative. SPURLING'S TEST: Negative. Data Review: All images/reports listed below were personally reviewed by me unless otherwise indicated. [facility] records independently reviewed 03/15/22 MRI cervical spine wo contrast: Counting reference: Craniocervical junction. Anatomic Variants: None. Alignment: Straightening of the normal cervical lordosis. Craniocervical junction: Craniocervical junction is normal. Cord: The cervical spinal cord is within normal limits of signal intensity and morphology. No evidence of abnormal intradural enhancement following contrast administration. Bone marrow signal/fracture: No evidence of confluent abnormal marrow replacement or an acute fracture. Advanced multilevel endplate degenerative changes. Severe disc space narrowing most notable at C5-C6. Moderate C4 vertebral body height loss and mild C5 and C6 vertebral body height loss. T3 intraosseous hemangioma. Cervical soft tissues: The cervical prevertebral and paraspinal soft tissues are within normal limits. 3.5 cm right thyroid nodule. C2-C3: Canal and foramina are patent. C3-C4: Moderate spinal canal stenosis secondary to disc bulging, dorsal osteophytic endplate spurring and dorsal ligamentous buckling. Facet and uncovertebral joint degenerative changes contribute to moderate left greater than right foraminal stenosis. C4-C5: Mild spinal canal stenosis secondary to annular bulging indenting the ventral thecal sac. Moderate right and mild left foraminal stenosis C5-C6: Mild spinal canal stenosis secondary to left eccentric dorsal osteophytic endplate spurring. Mild to moderate bilateral foraminal stenosis. C6-C7: Mild spinal canal stenosis secondary to disc bulging with superimposed right central protrusion and dorsal osteophytic endplate spurring. Facet and uncovertebral joint degenerative changes contributes to severe right and mild to moderate left foraminal stenosis. C7-T1: Spinal canal is patent. Annular bulging indents the ventral thecal sac. Mild to moderate bilateral foraminal stenosis, greater on the right. Incompletely imaged thoracic scoliotic hardware. IMPRESSION: Cervical spondylosis with up to moderate spinal canal stenosis at C3-C4. Varying degrees of up to severe foraminal stenosis on the right at C6-C7. 3.5 cm right thyroid nodule. 03/15/22 CT brain wo contrast No evidence of an acute intracranial process. 10/02/18 XR knee bilateral: Left - Knee arthroplasty. No perihardware osteolysis. No findings of hardware fracture. No osseous fracture or dislocation. Right - Knee arthroplasty. Threaded screws extending into the posterior medial tibial plateau. No perihardware osteolysis.No hardware fracture. No osseous fracture or dislocation. ASSESSMENT/PLAN DIAGNOSIS: M50.10 Cervical disc disorder with radiculopathy (primary encounter diagnosis) R29.898 Weakness of right upper extremity ASSESSMENT: Minal Caputo is a 66 year old female with PMH of Scoliosis, Right CTS, Afib, COPD, presenting with pain and weakness. Pain is now distal posterior neck, right scapula, intermittently in right arm posteriorly shoulder to elbow, denies pain in forearm. Denies any left sided symptoms. She has weakness in the RUE. The right arm has been improving, but the right hand has not. Difficulty moving right hand, holding pen, straightening fingers. Exam showsRUE weakness, minimal proximally, but significant distally in right hand/digits. CVA could not be r/o as Pt could not tolerate lying with head flat for MRI brain. MRI cervcial spine shows multilevel stenosis, most notably moderate in central canal at C3-4 and severe foraminal at C6-7. Unclear if her weakness is due to cervical spine. Peripheral nerve involvement is possible. Workup and treatment options discussed with patient per plan below. PLAN: 1) Imaging/Diagnostic Studies: -Agree with EMG/NCS to evaluate for neuromuscular cause of weakness in RUE, test is already orderedand patient should schedule for test at least 2 weeks post symptom onset. -US thyroid is already ordered to investigate thyroid nodule seen on MRI cervical. Pt informed and instructed to complete. -MRI cervical spine reviewed -Imaging reviewed as above. 2) Therapy/Rehabilitation: -Agree with PT and OT, which patient states she is already scheduled to begin local to her. -Activities and exercise as tolerated. 3) Pharmacological Management: -Medrol dose pack. Do not use NSAIDs while taking Medrol. -Naproxen to trial after Medrol for 5-7 days then use PRN. Risks discussed. -Discussed option for Gabapentin, but patient defers at this time. 4) Spine/MSK Interventions: -Discussed option for DEBORA, but patient defers at this time. 5) Consultations: -Consult Neurosurgery for cervical spine and RUE weakness. Can postpone or cancel if RUE strength improves. -Patient instructed to get US thyroid and discuss findings with her PCP. 6) Follow -up: -As needed. -Patient instructed to call/seek urgent medical care with worsening of symptoms or change of neurological status. 7) Future treatment considerations: -Gabapentin -DEBORA I spent a total of 60 minutes on the date of the service which included preparing to see the patient, [id number] patient care, completing clinical documentation, obtaining and/or reviewing separately obtained history, performing a medically appropriate examination, counseling and educating the pat ient/family/caregiver, ordering medications, tests, or procedures, independently interpreting results (not separately reported), and communicating results to the patient/family/caregiver. SIGNATURE: Alberto Monsalve DO PATIENT NAME: Minal Caputo DATE: March 19, 2022 TIME: 3:37 PM [facility] History of Past illness Narrative* Problem Noted Date Resolved Date Hypertensive urgency 03/14/2022 03/15/2022 AF (paroxysmal atrial fibrillation) 12/08/2021 03/14/2022 documented as of this encounter (statuses as of 03/15/2022) [facility] of Past illness Narrative* Problem Noted Date Resolved Date Hypertensive urgency 03/14/2022 03/15/2022 AF (paroxysmal atrial fibrillation) 12/08/2021 03/14/2022 documented as of this encounter (statuses as of 03/23/2022) [facility] of Past illness Narrative* Problem Noted Date Resolved Date Hypertensive urgency 03/14/2022 03/15/2022 AF (paroxysmal atrial fibrillation) 12/08/2021 03/14/2022 documented as of this encounter (statuses as of 03/23/2022) [address]20-2022 History of Past illness Narrative* Problem Noted Date Resolved Date Hypertensive urgency 03/14/2022 03/15/2022 AF (paroxysmal atrial fibrillation) 12/08/2021 03/14/2022 documented as of this encounter (statuses as of 03/26/2022) [facility] of Past illness Narrative* Problem Noted Date Resolved Date Hypertensive urgency 03/14/2022 03/15/2022 AF (paroxysmal atrial fibrillation) 12/08/2021 03/14/2022 documented as of this encounter (statuses as of 03/30/2022) [address]20-2022 History of Past illness Narrative* Problem Noted Date Resolved Date Hypertensive urgency 03/14/2022 03/15/2022 AF (paroxysmal atrial fibrillation) 12/08/2021 03/14/2022 documented as of this encounter (statuses as of 04/03/2022) [address]20-2022 History of Past illness Narrative* Problem Noted Date Resolved Date Hypertensive urgency 03/14/2022 03/15/2022 AF (paroxysmal atrial fibrillation) 12/08/2021 03/14/2022 documented as of this encounter (statuses as of 04/03/2022) [address]20-2022 History of Past illness Narrative* Problem Noted Date Resolved Date Hypertensive urgency 03/14/2022 03/15/2022 AF (paroxysmal atrial fibrillation) 12/08/2021 03/14/2022 documented as of this encounter (statuses as of 04/05/2022) [address]20-2022 History of Past illness Narrative* Problem Noted Date Resolved Date Hypertensive urgency 03/14/2022 03/15/2022 AF (paroxysmal atrial fibrillation) 12/08/2021 03/14/2022 documented as of this encounter (statuses as of 09/06/2022) [facility] Past illness Narrative* Problem Noted Date Resolved Date Hypertensive urgency 03/14/2022 03/15/2022 AF (paroxysmal atrial fibrillation) 12/08/2021 03/14/2022 documented as of this encounter (statuses as of 09/19/2022) [address]20-2022 History of Past illness Narrative* Problem Noted Date Resolved Date Hypertensive urgency 03/14/2022 03/15/2022 AF (paroxysmal atrial fibrillation) 12/08/2021 03/14/2022 documented as of this encounter (statuses as of 01/30/2023) [facility] Past [facility] Narrative* Problem Noted Date Resolved Date Hypertensive urgency 03/14/2022 03/15/2022 AF (paroxysmal atrial fibrillation) 12/08/2021 03/14/2022 documented as of this encounter (statuses as of 01/30/2023) [address]20-2022 History of Past illness Narrative* Problem Noted Date Resolved Date Atrial tachycardia, paroxysmal 03/14/2022 0 02/05/2023 Last Assessment & Plan: Assessment: patient states that she had AFIB in past-- on Metoprolol Follows with Dr. Dc States HR 25-120 at home at pulse ox, denies chest pain or palpitations RRR on exam today Hypertensive urgency 03/14/2022 03/15/2022 AF (paroxysmal atrial fibrillation) 12/08/2021 03/14/2022 documented as of this encounter (statuses as of 02/08/2023) [address]20-2022 History of Past illness Narrative* Problem Noted Date Diagnosed Date Resolved Date Atrial tachycardia, paroxysmal 03/14/2022 02/05/2023 Last Assessment & Plan: Assessment: patient states that she had AFIB in past-- on Metoprolol Follows with Dr. Dao Ortiz HR 25-120 at home at pulse ox, denies chest pain or palpitations RRR on exam today Hypertensive urgency 03/14/2022 022 AF (paroxysmal atrial fibrillation) 12/08/2021 03/14/2022 documented as of this encounter (statuses as of 07/12/2023) [facility] Past illness Narrative* Problem Noted Date Diagnosed Date Resolved Date Atrial tachycardia, paroxysmal 03/14/2022 02/05/2023 Last Assessment & Plan: Assessment: patient states that she had AFIB in past-- on Metoprolol Follows with Dr. Dao Ortiz HR 25-120 at home at pulse ox, denies chest pain or palpitations RRR on exam today Hypertensive urgency 03/14/2022 022 AF (paroxysmal atrial fibrillation) 12/08/2021 03/14/2022 documented as of this encounter (statuses as of 07/17/2023) [facility] Past illness Narrative* Problem Noted Date Diagnosed Date Resolved Date Atrial tachycardia, paroxysmal 03/14/2022 02/05/2023 Last Assessment & Plan: Assessment: patient states that she had AFIB in past-- on Metoprolol Follows with Dr. Dao Ortiz HR 25-120 at home at pulse ox, denies chest pain or palpitations RRR on exam today Hypertensive urgency 03/14/2022 022 AF (paroxysmal atrial fibrillation) 12/08/2021 03/14/2022 documented as of this encounter (statuses as of 07/24/2023) [facility] Narrative* Problem Noted Date Diagnosed Date Resolved Date Atrial tachycardia, paroxysmal 03/14/2022 02/05/2023 Last Assessment & Plan: Assessment: patient states that she had AFIB in past-- on Metoprolol Follows with Dr. Dao Ortiz HR 25-120 at home at pulse ox, denies chest pain or palpitations RRR on exam today Hypertensive urgency 03/14/2022 022 AF (paroxysmal atrial fibrillation) 12/08/2021 03/14/2022 documented as of this encounter (statuses as of 07/24/2023) [facility] of Past illness Narrative* Problem Noted Date Diagnosed Date Resolved Date Atrial tachycardia, paroxysmal 03/14/2022 02/05/2023 Last Assessment & Plan: Assessment: patient states that she had AFIB in past-- on Metoprolol Follows with Dr. Dc States HR 25-120 at home at pulse ox, denies chest pain or palpitations RRR on exam today Hypertensive urgency 03/14/2022 022 AF (paroxysmal atrial fibrillation) 12/08/2021 03/14/2022 documented as of this encounter (statuses as of 07/24/2023) [facility] Past illness Narrative* Problem Noted Date Diagnosed Date Resolved Date Atrial tachycardia, paroxysmal 03/14/2022 02/05/2023 Last Assessment & Plan: Assessment: patient states that she had AFIB in past-- on Metoprolol Follows with Dr. Dc States HR 25-120 at home at pulse ox, denies chest pain or palpitations RRR on exam today Hypertensive urgency 03/14/2022 022 AF (paroxysmal atrial fibrillation) 12/08/2021 03/14/2022 documented as of this encounter (statuses as of 07/26/2023) [facility] Past illness Narrative* Problem Noted Date Diagnosed Date Resolved Date Atrial tachycardia, paroxysmal 03/14/2022 02/05/2023 Last Assessment & Plan: Assessment: patient states that she had AFIB in past-- on Metoprolol Follows with Dr. Dao Ortiz HR 25-120 at home at pulse ox, denies chest pain or palpitations RRR on exam today Hypertensive urgency 03/14/2022 022 AF (paroxysmal atrial fibrillation) 12/08/2021 03/14/2022 documented as of this encounter (statuses as of 07/30/2023) [facility] Past illness Narrative* Problem Noted Date Diagnosed Date Resolved Date Atrial tachycardia, paroxysmal 03/14/2022 02/05/2023 Last Assessment & Plan: Assessment: patient states that she had AFIB in past-- on Metoprolol Follows with Dr. Dc States HR 25-120 at home at pulse ox, denies chest pain or palpitations RRR on exam today Hypertensive urgency 03/14/2022 022 AF (paroxysmal atrial fibrillation) 12/08/2021 03/14/2022 documented as of this encounter (statuses as of 08/07/2023) [facility] Past illness Narrative* Problem Noted Date Diagnosed Date Resolved Date Atrial tachycardia, paroxysmal 03/14/2022 02/05/2023 Last Assessment & Plan: Assessment: patient states that she had AFIB in past-- on Metoprolol Follows with Dr. Dao Ortiz HR 25-120 at home at pulse ox, denies chest pain or palpitations RRR on exam today Hypertensive urgency 03/14/2022 022 AF (paroxysmal atrial fibrillation) 12/08/2021 03/14/2022 documented as of this encounter (statuses as of 08/09/2023) [facility] of Past illness Narrative* Problem Noted Date Diagnosed Date Resolved Date Atrial tachycardia, paroxysmal 03/14/2022 02/05/2023 Last Assessment & Plan: Assessment: patient states that she had AFIB in past-- on Metoprolol Follows with Dr. Dao Ortiz HR 25-120 at home at pulse ox, denies chest pain or palpitations RRR on exam today Hypertensive urgency 03/14/2022 022 AF (paroxysmal atrial fibrillation) 12/08/2021 03/14/2022 documented as of this encounter (statuses as of 09/26/2023) [address]20-2022 History of Past illness Narrative* Problem Noted Date Diagnosed Date Resolved Date Atrial tachycardia, paroxysmal 03/14/2022 02/05/2023 Last Assessment & Plan: Assessment: patient states that she had AFIB in past-- on Metoprolol Follows with Dr. Dao Ortiz HR 25-120 at home at pulse ox, denies chest pain or palpitations RRR on exam today Hypertensive urgency 03/14/2022 022 AF (paroxysmal atrial fibrillation) 12/08/2021 03/14/2022 documented as of this encounter (statuses as of 09/27/2023) [facility] Past illness Narrative* Problem Noted Date Diagnosed Date Resolved Date Atrial tachycardia, paroxysmal 03/14/2022 02/05/2023 Last Assessment & Plan: Assessment: patient states that she had AFIB in past-- on Metoprolol Follows with Dr. Dao Ortiz HR 25-120 at home at pulse ox, denies chest pain or palpitations RRR on exam today Hypertensive urgency 03/14/2022 022 AF (paroxysmal atrial fibrillation) 12/08/2021 03/14/2022 documented as of this encounter (statuses as of 10/08/2023) [facility] of Past illness Narrative* Problem Noted Date Diagnosed Date Resolved Date Atrial tachycardia, paroxysmal 03/14/2022 02/05/2023 Last Assessment & Plan: Assessment: patient states that she had AFIB in past-- on Metoprolol Follows with Dr. Dao Ortiz HR 25-120 at home at pulse ox, denies chest pain or palpitations RRR on exam today Hypertensive urgency 03/14/2022 022 AF (paroxysmal atrial fibrillation) 12/08/2021 03/14/2022 documented as of this encounter (statuses as of 10/10/2023) [facility] History of Past illness Narrative* Problem Noted Date Diagnosed Date Resolved Date Atrial tachycardia, paroxysmal 03/14/2022 02/05/2023 Last Assessment & Plan: Assessment: patient states that she had AFIB in past-- on Metoprolol Follows with Dr. Dao Ortiz HR 25-120 at home at pulse ox, denies chest pain or palpitations RRR on exam today Hypertensive urgency 03/14/2022 022 AF (paroxysmal atrial fibrillation) 12/08/2021 03/14/2022 documented as of this encounter (statuses as of 10/14/2023) [facility] of Past illness Narrative* Problem Noted Date Diagnosed Date Resolved Date Atrial tachycardia, paroxysmal 03/14/2022 02/05/2023 Last Assessment & Plan: Assessment: patient states that she had AFIB in past-- on Metoprolol Follows with Dr. Dc States HR 25-120 at home at pulse ox, denies chest pain or palpitations RRR on exam today Hypertensive urgency 03/14/2022 022 AF (paroxysmal atrial fibrillation) 12/08/2021 03/14/2022 documented as of this encounter (statuses as of 10/22/2023) [facility] of Past illness Narrative* Problem Noted Date Diagnosed Date Resolved Date Atrial tachycardia, paroxysmal 03/14/2022 02/05/2023 Last Assessment & Plan: Assessment: patient states that she had AFIB in past-- on Metoprolol Follows with Dr. Dc States HR 25-120 at home at pulse ox, denies chest pain or palpitations RRR on exam today Hypertensive urgency 03/14/2022 022 AF (paroxysmal atrial fibrillation) 12/08/2021 03/14/2022 documented as of this encounter (statuses as of 10/22/2023) [facility] of Past illness Narrative* Problem Noted Date Diagnosed Date Resolved Date Atrial tachycardia, paroxysmal 03/14/2022 02/05/2023 Last Assessment & Plan: Assessment: patient states that she had AFIB in past-- on Metoprolol Follows with Dr. Dao Ortiz HR 25-120 at home at pulse ox, denies chest pain or palpitations RRR on exam today Hypertensive urgency 03/14/2022 022 AF (paroxysmal atrial fibrillation) 12/08/2021 03/14/2022 documented as of this encounter (statuses as of 10/23/2023) [facility] of Past illness Narrative* Problem Noted Date Diagnosed Date Resolved Date Atrial tachycardia, paroxysmal 03/14/2022 02/05/2023 Last Assessment & Plan: Assessment: patient states that she had AFIB in past-- on Metoprolol Follows with Dr. Dc States HR 25-120 at home at pulse ox, denies chest pain or palpitations RRR on exam today Hypertensive urgency 03/14/2022 022 AF (paroxysmal atrial fibrillation) 12/08/2021 03/14/2022 documented as of this encounter (statuses as of 10/23/2023) [facility] of Past illness Narrative* Problem Noted Date Diagnosed Date Resolved Date Atrial tachycardia, paroxysmal 03/14/2022 02/05/2023 Last Assessment & Plan: Assessment: patient states that she had AFIB in past-- on Metoprolol Follows with Dr. Dao Ortiz HR 25-120 at home at pulse ox, denies chest pain or palpitations RRR on exam today Hypertensive urgency 03/14/2022 022 AF (paroxysmal atrial fibrillation) 12/08/2021 03/14/2022 documented as of this encounter (statuses as of 10/23/2023) [facility] Past illness Narrative* Problem Noted Date Diagnosed Date Resolved Date Atrial tachycardia, paroxysmal 03/14/2022 02/05/2023 Last Assessment & Plan: Assessment: patient states that she had AFIB in past-- on Metoprolol Follows with Dr. Dao Ortiz HR 25-120 at home at pulse ox, denies chest pain or palpitations RRR on exam today Hypertensive urgency 03/14/2022 022 AF (paroxysmal atrial fibrillation) 12/08/2021 03/14/2022 documented as of this encounter (statuses as of 10/24/2023) [address]20-2022 History of Past illness Narrative* Problem Noted Date Diagnosed Date Resolved Date Atrial tachycardia, paroxysmal 03/14/2022 02/05/2023 Last Assessment & Plan: Assessment: patient states that she had AFIB in past-- on Metoprolol Follows with Dr. Dao Ortiz HR 25-120 at home at pulse ox, denies chest pain or palpitations RRR on exam today Hypertensive urgency 03/14/2022 022 AF (paroxysmal atrial fibrillation) 12/08/2021 03/14/2022 documented as of this encounter (statuses as of 10/24/2023) [facility] of Past illness Narrative* Problem Noted Date Diagnosed Date Resolved Date Atrial tachycardia, paroxysmal 03/14/2022 02/05/2023 Last Assessment & Plan: Assessment: patient states that she had AFIB in past-- on Metoprolol Follows with Dr. Dao Ortiz HR 25-120 at home at pulse ox, denies chest pain or palpitations RRR on exam today Hypertensive urgency 03/14/2022 022 AF (paroxysmal atrial fibrillation) 12/08/2021 03/14/2022 documented as of this encounter (statuses as of 10/24/2023) [facility] of Past illness Narrative* Problem Noted Date Diagnosed Date Resolved Date Atrial tachycardia, paroxysmal 03/14/2022 02/05/2023 Last Assessment & Plan: Assessment: patient states that she had AFIB in past-- on Metoprolol Follows with Dr. Dao Ortiz HR 25-120 at home at pulse ox, denies chest pain or palpitations RRR on exam today Hypertensive urgency 03/14/2022 022 AF (paroxysmal atrial fibrillation) 12/08/2021 03/14/2022 documented as of this encounter (statuses as of 10/24/2023) [facility] of Past illness Narrative* Problem Noted Date Diagnosed Date Resolved Date Atrial tachycardia, paroxysmal 03/14/2022 02/05/2023 Last Assessment & Plan: Assessment: patient states that she had AFIB in past-- on Metoprolol Follows with Dr. Dao Ortiz HR 25-120 at home at pulse ox, denies chest pain or palpitations RRR on exam today Hypertensive urgency 03/14/2022 022 AF (paroxysmal atrial fibrillation) 12/08/2021 03/14/2022 documented as of this encounter (statuses as of 11/05/2023) [facility] Past illness Narrative* Problem Noted Date Diagnosed Date Resolved Date Atrial tachycardia, paroxysmal 03/14/2022 02/05/2023 Last Assessment & Plan: Assessment: patient states that she had AFIB in past-- on Metoprolol Follows with Dr. Dc States HR 25-120 at home at pulse ox, denies chest pain or palpitations RRR on exam today Hypertensive urgency 03/14/2022 022 AF (paroxysmal atrial fibrillation) 12/08/2021 03/14/2022 documented as of this encounter (statuses as of 11/05/2023) [facility] Past illness Narrative* Problem Noted Date Diagnosed Date Resolved Date Atrial tachycardia, paroxysmal 03/14/2022 02/05/2023 Last Assessment & Plan: Assessment: patient states that she had AFIB in past-- on Metoprolol Follows with Dr. Dc States HR 25-120 at home at pulse ox, denies chest pain or palpitations RRR on exam today Hypertensive urgency 03/14/2022 022 AF (paroxysmal atrial fibrillation) 12/08/2021 03/14/2022 documented as of this encounter (statuses as of 11/06/2023) [facility] History of Past illness Narrative* Problem Noted Date Diagnosed Date Resolved Date Atrial tachycardia, paroxysmal 03/14/2022 02/05/2023 Last Assessment & Plan: Assessment: patient states that she had AFIB in past-- on Metoprolol Follows with Dr. Dao Ortiz HR 25-120 at home at pulse ox, denies chest pain or palpitations RRR on exam today Hypertensive urgency 03/14/2022 022 AF (paroxysmal atrial fibrillation) 12/08/2021 03/14/2022 documented as of this encounter (statuses as of 11/06/2023) [facility] History of Past illness Narrative* Problem Noted Date Diagnosed Date Resolved Date Atrial tachycardia, paroxysmal 03/14/2022 02/05/2023 Last Assessment & Plan: Assessment: patient states that she had AFIB in past-- on Metoprolol Follows with Dr. Dc States HR 25-120 at home at pulse ox, denies chest pain or palpitations RRR on exam today Hypertensive urgency 03/14/2022 022 AF (paroxysmal atrial fibrillation) 12/08/2021 03/14/2022 documented as of this encounter (statuses as of 11/11/2023) [facility] History of Past illness Narrative* Problem Noted Date Diagnosed Date Resolved Date Atrial tachycardia, paroxysmal 03/14/2022 02/05/2023 Last Assessment & Plan: Assessment: patient states that she had AFIB in past-- on Metoprolol Follows with Dr. Dao Ortiz HR 25-120 at home at pulse ox, denies chest pain or palpitations RRR on exam today Hypertensive urgency 03/14/2022 022 AF (paroxysmal atrial fibrillation) 12/08/2021 03/14/2022 documented as of this encounter (statuses as of 11/12/2023) [facility] History of Past illness Narrative* Problem Noted Date Diagnosed Date Resolved Date Atrial tachycardia, paroxysmal 03/14/2022 02/05/2023 Last Assessment & Plan: Assessment: patient states that she had AFIB in past-- on Metoprolol Follows with Dr. Dao Ortiz HR 25-120 at home at pulse ox, denies chest pain or palpitations RRR on exam today Hypertensive urgency 03/14/2022 022 AF (paroxysmal atrial fibrillation) 12/08/2021 03/14/2022 documented as of this encounter (statuses as of 11/12/2023) [address]20-2022 History of Past illness Narrative* Problem Noted Date Diagnosed Date Resolved Date Atrial tachycardia, paroxysmal 03/14/2022 02/05/2023 Last Assessment & Plan: Assessment: patient states that she had AFIB in past-- on Metoprolol Follows with Dr. Dc States HR 25-120 at home at pulse ox, denies chest pain or palpitations RRR on exam today Hypertensive urgency 03/14/2022 022 AF (paroxysmal atrial fibrillation) 12/08/2021 03/14/2022 documented as of this encounter (statuses as of 11/12/2023) [facility] History of Present illness Narrative* Micah Son, DO - 12/19/2021 3:45 PM EDT Associated Order(s): Large Joint Arthro/Inj: L hip joint Post-Procedure Diagnose(s): Primary osteoarthritis of left hip Images from the original note were not included. Minal Caputo is a patient of Rita Amanda MD. CHIEF COMPLAINT: Minal Caputo is a 66 year old female who presents today for new evaluationof left hip pain. CONSULTATION NOTE Correspondence will be shared today via the [facility] electronic health record or through regular mail, where applicable. HISTORY OF PRESENT ILLNESS: PAIN EVALUATION 12/19/2021 1535 Pain Level: 0 more with standing Pain Location: Hip-Left Description: Aching;Sore;Dull Duration Units: Months Frequency: Intermittent Intervention/Comfort measure: Relaxation;Reposition I personally reviewed previous notes by the referring physician regarding this complaint. SOCIAL HISTORY: Tobacco Use: Never PHYSICAL EXAMINATION: Antalgic gait Pain with hip motion Unable to straighten leg CLINICAL IMPRESSION / ASSESSMENT: (M16.12) Primary osteoarthritis of left hip (primary encounter diagnosis) RECOMMENDATION / PLAN: Injection performed as detailed below in PROCEDURE NOTE Follow up: Per consulting physician. Large Joint Arthro/Inj: L hip joint Informed Consent Consent Obtained: Verbal [place] Protocol A moment to CARE was completed. SIGN IN Personnel directly involved with the procedure wore the appropriate PPE. Special Equipment: N/A Patient/Surrogate Stated/Verified: Patient name, Date of , Relevant allergies and Intended procedure TIME OUT Intended patient and procedure match the source document(s). Consent documented and matches the intended procedure. No relevant labs, photos, and/or imaging studies were applicable for review. Correct side/site marked and visible. Medications required for procedure verified. No fire risk assessment and interventions applicable. No implant(s) inserted. 12/19/2021 3:54 PM The procedure site was prepped in the usual sterile fashion. Site: L hip joint Details:Musculoskeletal ultrasound was utilized to successfully localize placement of the injectionneedle at the appropriate site. Ultrasound images demonstrating local vasculature and demonstratinginjection of solution were saved. Medications: 40 mg triamcinolone acetonide 40 mg/mL Anesthetics: 4 mL lidocaine (PF) 10 mg/mL (1 %) Outcome: Tolerated well, no immediate complications Post-injection instructions were reviewed with the patient and the patient voiced understanding of these instructions. SIGN OUT No specimen collected. No instruments, equipment or retained foreign bodies applicable. Post-procedure follow-up management communicated and Plan of Care Visit completed when applicable Micah Son DO [facility] Miscellaneous Notes* Telephone Encounter - Kristin Berry MA - 12/18/2021 1:38 PM EDT Left detailed message advising pt to keep follow up appt. * Telephone Encounter - Nayan Yan DO - 12/18/2021 12:21 PM EDT Yes she should get her hip injected * Telephone Encounter - Jaye Sauer - 12/15/2021 2:57 PM EDT Minal Caputo called today. : 1955 Allergies: Fentanyl, Adhesive Bandages [Other], and Sulfa (Sulfonamide Antibiotics) (home) [phone] (cell) Reason for call: patient checking to see if provider received disk with images from [facility] in [facility]. Please call to discuss if hip injections would be beneficial. Has appointment for injection this coming Tuesday 12/19 and wants to know if she should keep this appointment. Patient last appointment: Visit date not found The patients preferred pharmacy has been captured for this encounter? no Jaye Sauer documented [facility] this [facility] History of Present illness Narrative* Janine Canales - 12/08/2021 9:36 AM EDT EVENT MONITOR DISPOSABLE PATCH INSTRUCTIONS Patient Name: Minal Caputo Clinic Number: [id number] Skin prepped and cleansed with alcohol Patch secured to prepped area Monitor Activated Serial #: [id number] Patient Instructed: 1.) Prescribed order timeframe 2.) Bathing guidelines 3.) Usage of event button and diary documentation 4.) Return of monitor at the end of prescribed order 5.) Call with problems [phone] or [phone] ext. [phone] Patient expresses a good understanding of instructions Janine Canales documented in this encounterChildren[facility] History of Present illness Narrative* John Dc MD - 12/08/2021 8:15 AM EDT Images from the original note were not included. [facility] [place] Department of Cardiovascular Medicine SECTION OF CARDIAC PACING and ELECTROPHYSIOLOGY OUTPATIENT VISIT DATE December 08, 2021 OUTPATIENT VISIT TYPE NEW PRIMARY CARE PHYSICIAN: Rita Amanda MD ([facility]) [address] [place] [address] REFERRING PHYSICIAN: SELF CHIEF COMPLAINT: Self referral for possible AF on monitor HISTORY OF PRESENT ILLNESS/NURSING INTAKE HISTORY: Ms. Caputo is a 66 year old female who presents today who presents for evaluation of atrial fibrillation. She has a past medical history of obesity, COPD, hypertension, GERD, HLD, and atrial fibrillation. She presented to an OSH in 06/2021 for nephrolithiasis and was found to be in AF. She was directed to the hospital for admission (EKG unavailable). Per OSH note, unclear if she was in AF or SR w/ PACs. She has never had any testing or treatment for atrial fibrillation. She does not snore and has never been diagnosed with CHIKA. She reports SOB related to COPD. She denies chest pain, orthopnea, cough, edema, palpitations, PND, lightheadedness or syncope. PAST MEDICAL HISTORY Diagnosis Date Atrial fibrillation (HCC) GERD (gastroesophageal reflux disease) Hiatal hernia HLD (hyperlipidemia) HTN (hypertension) Obesity, unspecified Other and unspecified hyperlipidemia Scoliosis Spinal stenosis, unspecified region other than cervical PAST SURGICAL HISTORY Procedure Laterality Date , CLASSIC, IN-HOSP CARE 1980 CURETTAGE PAST SURGICAL HISTORY OF 1986 spinal instrumentation (Valadez rods) PAST SURGICAL HISTORY OF 2006 lumbar laminectomy SOCIAL HISTORY Social History Tobacco Use Smoking status: Never Smoker Smokeless tobacco: Never Used Vaping Use Vaping Use: Never used Substance Use Topics Alcohol use: Yes Comment: socially- couple times per year Drug use: No FAMILY HISTORY Problem Relation Age of Onset Hypertension Mother Lipids Mother Cancer Father prostate Heart Father chf Lipids Father Hypertension Father ALLERGIES: ALLERGIES Allergen Reactions Fentanyl Other: See Comments Drop in RR and drop in pulse ox to 70% Adhesive Bandages [* Rash ADHESIVE BANDAGES.. RASH Sulfa (Sulfonamide * MEDICATIONS: losartan (COZAAR) 50 mg tablet Take 50 mg by mouth once daily. esomeprazole magnesium (NEXIUM ORAL) Take 20 mg by mouth once daily. furosemide (LASIX) 40 mg tablet MULTIVITAMIN ORAL Take by mouth. potassium chloride (K-TAB) 10 mEq tablet Take 10 mEq by mouth twice daily. atorvastatin calcium(LIPITOR 20 MG TAB) Take 20 mg by mouth once daily. METOPROLOL 100 MG TAB Take one(1) tablet daily. predniSONE (DELTASONE) 10 mg tablet REVIEW OF SYSTEMS: General, constitutional: Weight loss or gain- No, Fever or chills-No, Weakness- No, Trouble sleeping-No. Head, Eyes, Ears, Mouth: Headache, head injury-No, Glasses or contact lenses-No, Pain-No, Impaired vision-No, Decreased hearing-No, Ringing in ears-No, Nose bleeds-No, Dental difficulties-No, Bleeding gums-No, Dentures-No. Neck: Swelling-No, Pain-No, Stiffness-No. Respiratory: Cough-No, Spitting up blood-No, Shortness of breath-No, Wheezing or asthma-No. Musculoskeletal: Muscle or joint pain or stiffness-No, Joint swelling-No. Gastrointestinal: Difficulty swallowing-No, Heartburn-No, Change in bowel habits-No, Blood in stool, Dark black stools-No. Neurological/Psychiatric: Weakness, paralysis-No, Numbness-No, Tingling-No, Tremor-No, Nervousness or anxiety-No, Depressed mood-No, Memory loss-No. Skin: Rash-No, Itching-No. Hematological: Easy bruising-No, Easy bleeding-No. Endocrine: Heat or cold intolerance-No, Excessive sweating-No, Frequent urination-No, Frequent thirst-No. Leo Ballrad RN PHYSICAL EXAMINATION: [facility] 08/26/2006 (Approximate) Physical Exam Constitutional: General: She is not in acute distress. Appearance: She is well-developed. She is not diaphoretic. HENT: Head: Normocephalic and atraumatic. Mouth/Throat: Pharynx: No oropharyngeal exudate. Eyes: General: No scleral icterus. Left eye: No discharge. Conjunctiva/sclera: Conjunctivae normal. Pupils: Pupils are equal, round, and reactive to light. Neck: Thyroid: No thyromegaly. Vascular: No JVD. Cardiovascular: Rate and Rhythm: Normal rate and regular rhythm. Pulses: Intact distal pulses. Heart sounds: Normal heart sounds. No murmur heard. No friction rub. No gallop. Pulmonary: Effort: Pulmonary effort is normal. No respiratory distress. Breath sounds: Normal breath sounds. No wheezing or rales. Chest: Chest wall: No tenderness. Abdominal: General: Bowel sounds are normal. There is no distension. Palpations: Abdomen is soft. Tenderness: There is no abdominal tenderness. There is no rebound. Musculoskeletal: General: No tenderness. Normal range of motion. Cervical back: Normal range of motion and neck supple. Skin: General: Skin is warm and dry. Findings: No erythema. Neurological: Mental Status: She is alert and oriented to person, place, and time. Cranial Nerves: No cranial nerve deficit. Coordination: Coordination normal. Psychiatric: Thought Content: Thought content normal. CARDIOVASCULAR MEDICINE TESTING: EKG: nsr IMPRESSION: Ms. Caputo is a 66 year old female who presents as self-referral with possible atrial fibrillation by EKG. Patient reports she presented for work-up with likely kidney stone and was told that she may have atrial fibrillation. EKG is not available for review at this time. Patient denies any associated symptoms and has never had heart rhythm or other cardiac problems. Plan to further evaluatewith 2-week event monitor and transthoracic echo. PLAN AND RECOMMENDATIONS: Orders Placed This Encounter OUTSIDE VENDOR CARDIAC OUTPATIENT EXTENDED RHYTHM RECORDING (WITHOUT TELEMETRY) Order Specific Question: Vendor Answer: [employer]IO Order Specific Question: ICD/Pacemaker? Answer: Yes Order Specific Question: Duration Answer: 14 Days losartan (COZAAR) 50 mg tablet Sig: Take 50 mg by mouth once daily. esomeprazole magnesium (NEXIUM ORAL) Sig: Take 20 mg by mouth once daily. perflutren lipid microspheres 1.3 mL in NaCl (PF) 0.9% 10 mL injection (DEFINITY) sodium chloride 0.9 % (flush) 10 mL (BD POSIFLUSH) ECHO Standing Status: Future Standing Expiration Date: 12/08/2022 Order Specific Question: Disease / Condition: Answer: Arrhythmia Order Specific Question: Indication: Answer: Sustained atrial fibrillation I personally interviewed, confirmed and edited the above information as obtained by others. CONTACT INFORMATION: John Dc MD documented in this encounterChildren[facility] Evaluation note* Encounter Date Diagnosis Assessment Notes Treatment Notes Treatment Clinical Notes Jun, Contact with and (suspected) exposure to other viral communicable diseases (ICD-10 - Z20.828) Jun, Other Additional time spent conducting pre-visit phone call, screening for symptoms, instructions on social distancing, application and removal of PPE, and cleaning of examination room, equipment and supplies was preformed. Patient education given for testing methodology and results. Patient care instructions given in writting by [facility] At Home document. [employer] Other 11-05-2021 NoteAdmission Information Admitting Physician - CANDE HATHAWAY, Terrell Consulting Physician - Ignacio HATHAWAY, Judy Black Admitting Diagnoses: obstructing kidney stone Hospital Course Significant Findings 65-year-old white female past medical history of obesity, COPD, hypertension, GERD and nephrolithiasis who was admitted as direct admission for possible A. fib. Patient was scheduled to have cystoscopy and possible stent for obstructing kidney stone. EKG read as having A. fib so she was directed [facility] for admission. Patient in the EKG looks normal sinus rhythm with some APCs. Patient complaining of left flank pain. Pain is sharp in nature. It is 10/10 intensity. Associated with nauseano vomiting. No gross hematuria. No fever chills. No diarrhea. Denies having chest pain. She is complaining of shortness of breath. No palpitations. She denies having cough. she was admitted for observation. Treated with IVF and pain medication. Urology was consulted. EKG sinus rhythm with APCs notafib. Toprol Xl was resumed. She passed her Stone and her pain resolved. She was dc home in stable condition Procedures and Treatment Provided none Physical Exam Vitals & Measurements T: 36.7 ?C (Oral) HR: 63(Monitored) RR: 16 BP: 177/91 SpO2: 97% Constitutional: no fever, no chills, no sweats, no weakness Skin: no Jaundice, no rash, no lesions, nopetechiae ENMT: no ear pain, no sore throat, no congestion, no hoarseness Respiratory: no shortness of breath, no cough, no orthopnea, no wheezing Cardiovascular: no chest pain, no palpitations, no edema Gastrointestinal: no nausea, no vomiting, no diarrhea, no GI bleeding Genitourinary: no dysuria, no hematuria, no discharge, no pain Musculoskeletal: no back pain, no trauma Neurologic: no headache, no dizziness, no numbness, no weakness Psychiatric: no sleeping problems, no irritability, no mood swings/depression. Heme/Lymph: no bleeding tendency, no bruising tendency, no petechiae, no swollen nodes Allergy/Immunologic: no seasonal allergies, no food allergies, no recurrent infections, no impairedimmunity Additional ROS info: Except as noted in the above Review of Systems and in the History of Present Illness all other systems have been reviewed and are negative or noncontributory. Discharge Plan Discharge Date/Time:06/29/2021 18:48 1. Premature atrial beat (I49.1: Atrial premature depolarization) 2. Kidney stone (N20.0: Calculus of kidney) 3. COPD mixed type (J44.9: Chronic obstructive pulmonary disease, unspecified) 4. Hypertension (I10: Essential (primary) hypertension) 5. Acid reflux (K21.9: Gastro-esophageal reflux disease without esophagitis) 6. DVT prophylaxis (Z29.9: Encounter for prophylactic measures, unspecified) Patient Discharge Condition good Discharge Disposition Home Discharge Medication List Prescriptions No active prescription medications Home acetaminophen 325 mg Tab, 650 mg= 2 tab(s), Oral, q6hr, PRN atorvastatin 20 mg Tab, 20 mg= 1 tab(s), Oral, Daily Colace 100 mg Cap, 100 mg= 1 cap(s), Oral, BID furosemide 20 mg Tab, 20 mg= 1 tab(s), Oral, Daily Klor Con 10 mEq Cap-ER, 10 mEq= 1 tab(s), Oral, Daily metoprolol 100 mg ER Tab, 100 mg= 1 tab(s), Oral, Daily Multivitamins and Minerals, one tab, Oral, Daily Nexium 20 mg Cap-DR, 20 mg= 1 cap(s), Oral, Daily tamsulosin, 0.4 mg, Oral, Daily Vitamin D3, unknown dose, Oral, Daily Follow-up With When Contact Information EFREN AMANDA Within 5 to 7 days [facility] [facility] (1) Additional Instructions: Patient Education Kidney Stones, [id number] [1] Admission H & P; Terrell IVY MD 06/28/2021 16:34 [facility] ShawComment [facility] above:Result Comment: Electronically Signed By: Terrell IVY MD\.br\Date and Time Signed: 06/30/21 14:[id number] NoteBasic Information Admit Date/Time:06/28/2021 16:05 Chief Complaint aFIB History of Present Illness 65-year-old white female past medical history of obesity, COPD, hypertension, GERD and nephrolithiasis who was admitted as direct admission for possible A. fib. Patient was scheduled to have cystoscopy and possible stent for obstructing kidney stone. EKG read as having A. fib so she was directed [facility] for admission. Patient in the EKG looks normal sinus rhythm with some APCs. Patient complaining of left flank pain. Pain is sharp in nature. It is 10/10 intensity. Associated with nauseano vomiting. No gross hematuria. No fever chills. No diarrhea. Denies having chest pain. She is complaining of shortness of breath. No palpitations. She denies having cough. Review of Systems Constitutional: no fever, no chills, no sweats, no weakness Skin: no Jaundice, no rash, no lesions, nopetechiae ENMT: no ear pain, no sore throat, no congestion, no hoarseness Respiratory: no shortness of breath, no cough, no orthopnea, no wheezing Cardiovascular: no chest pain, no palpitations, no edema Gastrointestinal: moderate nausea, no vomiting, no diarrhea, no GI bleeding Genitourinary: no dysuria, no hematuria, no discharge, no pain Musculoskeletal: no back pain, no trauma Neurologic: no headache, no dizziness, no numbness, no weakness Psychiatric: no sleeping problems, no irritability, no mood swings/depression. Heme/Lymph: no bleeding tendency, no bruising tendency, no petechiae, no swollen nodes Allergy/Immunologic: no seasonal allergies, no food allergies, no recurrent infections, no impairedimmunity Additional ROS info: Except as noted in the above Review of Systems and in the History of Present Illness all other systems have been reviewed and are negative or noncontributory. Physical Exam General: alert, no acute distress Skin: warm, dry Head: no trauma, normocephalic Neck: Trachea midline, no adenopathy, no tenderness Eye: normal conjunctiva, sclera clear ENMT: TM's clear, oral mucosa moist, no pharyngeal erythema or exudate Cardiovascular: regular rate and rhythm, normal peripheral perfusion Respiratory: Lungs CTA, respirations non labored Chest wall: no deformity. Gastrointestinal: soft, non distended, no tenderness, no guarding. Back: No tenderness, Normal ROM, Normal alignment. Extremities: no deformity, no trauma Neurological: oriented x 4, LOC appropriate for age, CN II-XII intact, motor strength equal & normal bilaterally, sensation equal & normal bilaterally, speech normal Psychiatric: cooperative, affect appropriate for age, normal judgement, normal psychiatric thoughts. Lab Results No qualifying data available. Diagnostic Results (06/28/2021 12:56 EDT XR Abdomen 1 View) IMPRESSION: No distinct collecting system calculi radiographically. EXAMINATION/TECHNIQUE: XR Abdomen 1 View HISTORY: Preoperative evaluation for left-sided kidney stone. COMPARISON: None RESULT: Limitations from patient body habitus and scoliosis. No distinct collecting system calculi radiographically. Nonspecific nondilated bowel gas pattern. Elevation of the left hemidiaphragm. Right lung bases unremarkable. Severe levoscoliosis within the spine with postsurgical changes. Degenerative changes. No other significant abnormality. [1] Assessment/Plan 1. Premature atrial beat (I49.1: Atrial premature depolarization) 23-hour observation Cardiac telemetry: Sinus rhythm with PVCs BMP stat Magnesium stat CBC stat Chest x-ray Repeat EKG Echocardiogram in the morning Troponin x3 Resume Toprol XL daily PPI 2. Kidney stone (N20.0: Calculus of kidney) Morphine IV every 4 hours Zofran IV every 4 hours Rocephin 1 g daily Urology consult 3. COPD mixed type (J44.9: Chronic obstructive pulmonary disease, unspecified) Albuterol and Atrovent nebulizer as needed 4. Hypertension (I10: Essential (primary) hypertension) Resume Toprol-XL daily PPI 5. Acid reflux (K21.9: Gastro-esophageal reflux disease without esophagitis) PPI 6. DVT prophylaxis (Z29.9: Encounter for prophylactic measures, unspecified) SCDs Orders: acetaminophen, 650 mg = 2 tab(s), Tab, Oral, q6hr PRN Pain, Routine, Start date 06/28/21 16:27:00 EDT, 06/28/21 16:27:00 EDT docusate, 100 mg = 1 cap(s), Cap, Oral, BID, Routine, Start date 06/28/21 21:00:00 EDT, 06/28/21 16:27:00 EDT morphine, 2 mg = 1 mL, Injection, IV Push, q4hr PRN Pain for 5 day(s), Stop date 07/03/21 16:26:00 EST, Routine, Start date 06/28/21 16:27:00 EDT, 06/28/21 16:27:00 EDT ondansetron, 4 mg = 2 mL, Injection, IV Push, q6hr PRN Nausea, Routine, Start date 06/28/21 16:27:00 EDT, 06/28/21 16:27:00 EDT senna, 17.2 mg = 2 tab(s), Tab, Oral, BID PRN Other (see comment), Routine, Start date 06/28/21 16:27:00 EDT, 06/28/21 16:27:00 EDT zolpidem, 5 mg = 1 tab(s), Tab, Oral, Bedtime PRN Sleep, Routine, Start date 06/28/21 16:27:00 EDT,06/28/21 16:27:00 ED (more content not included)...[facility]Result Comment: Electronically Signed By: CANDE HATHAWAY, Terrell\.br\Date and Time Signed: 06/28/21 16:[id number] Note [id number]:127[facility]* Diagnosis AF (paroxysmal atrial fibrillation) (HCC)- Primary Atrial fibrillation [facility] Diagnosis Paroxysmal atrial fibrillation (HCC)- Primary Atrial fibrillation [facility] Diagnosis Primary osteoarthritis of left hip- Primary Primary localized osteoarthrosis, pelvic region and thigh [facility]* Diagnosis Right arm weakness- Primary Other musculoskeletal symptoms referable to limbs [facility] Diagnosis Neck pain- Primary Cervicalgia [facility] Diagnosis Primary osteoarthritis of left hip- Primary Primary localized osteoarthrosis, pelvic region and thigh [facility] Diagnosis Thyroid nodule Nontoxic uninodular goiter [facility] Diagnosis Thyroid nodule- Primary Nontoxic uninodular goiter [facility]* Diagnosis BMI 50.0-59.9, adult (HCC)- Primary Body Mass Index 50.0-59.9, adult Primary osteoarthritis of left hip Primary localized osteoarthrosis, pelvic region and thigh Type 2 diabetes mellitus with hyperglycemia, unspecified whether [place] [facility] ([facility]) [facility] Diagnosis Cervical disc disorder with radiculopathy- Primary Brachial neuritis or radiculitis nos Weakness of right upper extremity Other musculoskeletal symptoms referable to limbs [facility]: Evaluation note* Diagnosis Primary osteoarthritis of left hip- Primary Primary localized osteoarthrosis, pelvic region and thigh [facility]* Diagnosis Gastroesophageal reflux disease, unspecified whether esophagitis present- Primary Screening for colon cancer Special screening for malignant neoplasms, colon Hiatal hernia Diaphragmatic hernia without mention of obstruction or gangrene [facility]* Diagnosis Onset Date Resolution Status Multiple thyroid nodules acu te [facility] Work Phone: Evaluation note* Diagnosis Malignant neoplasm of left female breast, unspecified estrogen receptor status, unspecified site of breast (HCC)- Primary [facility] Diagnosis Malignant neoplasm of left female breast, unspecified estrogen receptor status, unspecified site of breast (HCC) Invasive lobular carcinoma of breast in female (HCC) [facility]* Diagnosis Invasive lobular carcinoma of breast in female (HCC)- Primary Invasive lobular carcinoma of breast in female (HCC) [facility]* Diagnosis Preop examination- Primary Preoperative examination, unspecified Mixed hyperlipidemia Primary hypertension Unspecified essential hypertension Palpitations PETERSON (dyspnea on exertion) Other dyspnea and respiratory abnormality Gastroesophageal reflux disease, unspecified whether esophagitis present Disorder of mitral valve Mitral valve disorders Morbid obesity (HCC) Morbid obesity Edema, unspecified type 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), idiopathic Rheumatoid arthritis, involving unspecified site, unspecified whether rheumatoid factor present (HCC) Invasive lobular carcinoma of breast in female (HCC) [facility] Diagnosis Invasive lobular carcinoma of breast in female (HCC) Malignant neoplasm of left breast in female, estrogen receptor positive, unspecified site of breast (HCC) Pre-op testing Preoperative examination, unspecified [facility] Diagnosis Invasive lobular carcinoma of breast in female (HCC)- Primary [facility]* Diagnosis 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)- Primary S/P left mastectomy Acquired absence of breast and nipple Invasive lobular carcinoma of breast in female (HCC) [facility]* Diagnosis Preoperative clearance- Primary Preoperative examination, unspecified Mixed hyperlipidemia Primary hypertension Unspecified essential hypertension Palpitations PETERSON (dyspnea on exertion) Other dyspnea and respiratory abnormality Disorder of mitral valve Mitral valve disorders Morbid obesity (HCC) Morbid obesity Edema, unspecified type 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), idiopathic Rheumatoid arthritis, involving unspecified site, unspecified whether rheumatoid factor present (HCC) Invasive lobular carcinoma of breast in female (HCC) documented [facility]* Diagnosis Right non-suppurative otitis media- Primary Nonsuppurative otitis media, not specified as acute or chronic Acute recurrent sinusitis, unspecified location Acute rhinitis Acute nasopharyngitis (common cold) [facility]* Diagnosis Invasive lobular carcinoma of breast in female (HCC) [facility] Diagnosis Invasive lobular carcinoma of breast in female (HCC)- Primary [facility]* Diagnosis Invasive lobular carcinoma of breast in female (HCC) [facility]* Diagnosis Invasive lobular carcinoma of breast in female (HCC)- Primary [facility]* Diagnosis Invasive lobular carcinoma of breast in female (HCC)- Primary [facility]* Diagnosis Invasive lobular carcinoma of breast in female (HCC)- Primary Post-operative state Other postprocedural status [facility]* Diagnosis ASCVD (arteriosclerotic cardiovascular disease) Unspecified cardiovascular disease documented in this encounter [facility]* Diagnosis Invasive lobular carcinoma of breast in female (HCC)- Primary [facility] Diagnosis Invasive lobular carcinoma of breast in female (HCC) [facility]* Diagnosis Invasive lobular carcinoma of breast in female (HCC)- Primary [facility]* Diagnosis 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 (CMS-HCC)- Primary documented in this encounter [facility]* Diagnosis Chest pain, unspecified type- Primary Invasive lobular carcinoma of breast in female (HCC) Generalized edema Edema documented in this encounter [facility] Narrative - Reported* Type Description Date Medical History acid reflux Medical History Hypertension Medical History hypercholesterolemia Medical History Scoliosis Surgical History back surgery x2 Surgical History C section Surgical History kidney stone Surgical History knee replacement bilateral Hospitalization History see above [employer] Other InstructionsNot on filedocumented in this encounter [facility] filedocumented in this [facility] on filedocumented in this encounter [facility] on filedocumented in this [facility]ructionsNot on filedocumented in this encounter [facility] SystemReason for referral (narrative)* Outpatient Procedure (Routine) - Pending Review Specialty Diagnoses / Procedures Referred By Binu fontanez Referred To Contact [facility] Diagnoses AF (paroxysmal atrial fibrillation) (HCC) Procedures ECHO ECHO TTHRC R-T 2D W/WOM-MODE COMPL SPEC&COLR D John Dc MD [address] [place] [address] [address] Referral ID Status Reason Start Date Expiration Date Visits Requested Visits Authorized [id number] Pending Review Auto-Generat ed Referral 12/08/2021 12/08/2022 1 1 [facility] for referral (narrative)* Diagnostic Procedure Only (Routine) - Closed Specialty Diagnoses / Procedures Referred By Binu fontanez Referred To Contact [facility] Diagnoses Thyroid nodule Procedures US THYROID/PARATHYROID US SOFT TISSUE HEAD & NECK REAL TIME IMGE Lopez Servin DO [address] [place] [address] [facility] Referral ID Status Reason Start Date Expiration Date V isits Requested Visits Authorized [id number] Closed Auto-Generate d Referral 03/15/2022 04/14/2023 1 1 [facility] for referral (narrative)* Outpatient Procedure (Routine) - Authorized Specialty Diagnoses / Procedures Referred By Binu t Referred To Contact [facility] Diagnoses Gastroesophageal reflux disease, unspecified whether esophagitis present Hiatal hernia Procedures EGD DIAGNOSTIC ESOPHAGOGASTRODUODENOSC OPY TRANSORAL DIAGNOSTIC Nell Trujillo APRN.ANESTHESIOLOGY RESIDENT [address] [facility] [place] [address] [facility] [place] [address] [place] [address] Referral ID Status Reason Start Date Expiration Date Visits Requested Visits Authorized [id number] Authorized Auto-Generat ed Referral 09/19/2022 09/19/2023 1 1 * Outpatient Procedure (Routine) - Authorized Specialty Diagnoses / Procedures [facility] Referred To Contact [facility] Diagnoses Screening for colon cancer Procedures COLONOSCOPY SCREENING COLONOSCOPY FLX DX W/COLLJ SPEC WHEN PFRMD Nell Trujillo APRN.CNP [address] [facility] [place] [address] [facility] [address] [place] [address] Referral ID Status Reason Start Date Expiration Date Visits Requested Visits Authorized [id number] Authorized Auto-Generat ed Referral 09/19/2022 09/19/2023 1 1 [facility] for referral (narrative)* Diagnostic Procedure Only (Routine) - Pending Review Specialty Diagnoses / Procedures Referred By Binu t Referred To Contact [facility] Diagnoses Malignant neoplasm of left female breast, unspecified estrogen receptor status, unspecified site of breast (HCC) Procedures US AXILLA ONLY LEFT US LMTD JOINT/OTH NONVASC XTR STRUX R-T W/[place] [address] [place] [address] [facility] [address] [place] [address] Referral ID Status Reason Start Date Expiration Date Visits Requested Visits Authorized [id number] Pending Review Auto-Generat ed Referral 08/15/2024 1 1 [facility] for referral (narrative)* Diagnostic Procedure Only (Routine) - Closed Specialty Diagnoses / Procedures Referred By Binu fontanez Referred To Contact [facility] Diagnoses Malignant neoplasm of left female breast, unspecified estrogen receptor status, unspecified site of breast (HCC) Procedures US AXILLA ONLY LEFT US LMTD JOINT/OTH NONVASC XTR STRUX R-T W/[place] [address] [place] [address] [facility] [address] [place] [address] Referral ID Status Reason Start Date Expiration Date V isits Requested Visits Authorized [id number] Closed Auto-Generate d Referral 07/17/2023 08/15/2024 1 1 [facility] for visit Narrative* Diagnostic Procedure Only (Routine) - Closed Specialty Diagnoses / Procedures Referred By Binu fontanez Referred To Contact US IMAGING Diagnoses Thyroid nodule Procedures US THYROID/PARATHYROID US SOFT TISSUE HEAD & NECK REAL TIME IMGE Lopez Servin DO [address] [place] [address] [facility] Imaging Referral ID Status Reason Start Date Expiration Date V isits Requested Visits Authorized [id number] Closed Auto-Generate d Referral 03/15/2022 04/14/2023 1 1 [facility] Summary Purpose Family History No Family History Records FoundNo Family History Records FoundNo Family History Records FoundNo Family History Records FoundNo Family History Records FoundNo Family History Records FoundNo Family History Records FoundNo Family History Records FoundNo Family History Records FoundNo Family History Records FoundNo Family History Records Found Advance Directives Documents on File Type Date Recorded 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 Advance Directive(s) 12/22/2017 6:24 PM Documents on File Type Date Recorded 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 Advance Directive(s) 12/22/2017 6:24 PM Documents on File Type Date Recorded 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 Advance Directive(s) 03/15/2022 12:45 PM Advance Directive(s) 12/22/2017 6:24 PM Documents on File Type Date Recorded 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 Advance Directive(s) 03/15/2022 12:45 PM Advance Directive(s) 12/22/2017 6:24 PM Advance Directive Response Recorded Date/ Time Advance Directives No January 04 9:04am Advance Directive Response Recorded Date/ Time Advance Directives No June 28, 2022 10:08am Advance Directive Response Recorded Date/ Time Advance Directives No June 28, 2022 11:08am Hospital Course Note HNO ID: [id number] Author: Tam willis (Res) Fredrick Service: Orthopaedic Surgery Author Type: Resident Type: Discharge Summaries Filed: 04/03/2018 8:50 AM Note Text: DISCHARGE SUMMARY PATIENT NAME: Minal Caputo ADMISSION DATE: 03/31/2018 DISCHARGE DATE: April 03, 2018 Attending Physician: Donte Moffett Reason for Hospitalization: Principal Problem: Arthritis of both knees Active Problems: OA (osteoarthritis) of knee Resolved Problems: * No resolved hospital problems. * Admitting Diagnosis: Knee Advanced Degenerative Joint Disease Discharge Diagnosis: Same as admitting Operations During Hospitalization: bilateral TKAs Consultations: Physical Therapy Case Management Internal Medicine Hospital Course: Electively admitted for above surgery. Surgery without complication. PT/OT on the floor. PO Pain control obtained. Discharged after clearance from Medicine. Patient was hemodynamically stable postoperatively. Recent Labs: Relevant labs included: Hemoglobin (g/dL) Date Value (more content not included)... Assessments No Assessments Information Available Medications Administered Section Inactive Administered Medications - up to 3 most recent administrations Medication Order MAR Action Action Date Dose Rate Site lidocaine (PF) 10 mg/mL (1 %) 4 mL injection (XYLOCAINE) 4 mL, Injection - FOR ORTHO USE ONLY, ONE TIME INJECTION, 1 dose, Starting on Sat12/19/21 at 1554, Until Sat12/19/21 at 1554 Given 12/19/2021 3:54 PM EDT 4 mL triamcinolone acetonide 40 mg injection (KeNALog 40) 40 mg, Injection - FOR ORTHO USE ONLY, ONE TIME INJECTION, 1 dose, Starting on Sat12/19/21 at 1554, Until Sat12/19/21 at 1554 Given 12/19/2021 3:54 PM EDT 40 mg Inactive Administered Medications - up to 3 most recent administrations Medication Order MAR Action Action Date Dose Rate Site lidocaine (PF) 10 mg/mL (1 %) 4 mL injection (XYLOCAINE) 4 mL, Injection - FOR ORTHO USE ONLY, ONE TIME INJECTION, 1 dose, Starting on Sat09/06/22 at 1510, Until Sat09/06/22 at 1510 Given 09/06/2022 3:10 PM EST 4 mL Hi p, Left triamcinolone acetonide 40 mg injection (KeNALog 40) 40 mg, Injection - FOR ORTHO USE ONLY, ONE TIME INJECTION, 1 dose, Starting on Sat09/06/22 at 1510, Until Sat09/06/22 at 1510 Given 09/06/2022 3:10 PM EST 40 mg Hi p, Left Reason for Referral Specialty Diagnoses / Procedures Referred By Binu fontanez Referred To Contact CT IMAGING Diagnoses Chest pain, unspecified type Procedures CT CHEST W IVCON PE DIAGNOSTIC COMPUTED TOMOGRAPHY THORAX W/CONTRAST Brianna Renner, SPRAYING MACHINE OPERATOR.ANESTHESIOLOGY RESIDENT [address] [place] [address] [place] [address] [place] [address] Referral ID Status Reason Start Date Expiration Date Visits Requested Visits Authorized [id number] Pending Review Auto-Generat ed Referral 11/05/2023 12/04/2024 1 1 Specialty Diagnoses / Procedures Referred By Binu t Referred To Contact Diagnoses Cervical disc disorder with radiculopathy Weakness of right upper extremity Procedures CONSULT TO SPINE SURGERY OFFICE/OUTPATIENT [facility] 60-74 MINUTES Alberto Monsalve DO [address] [place] [address] Referral ID Status Reason Start Date Expiration Date Visits Requested Visits Authorized [id number] Authorized PCP Requested Referral 03/19/2022 03/19/2023 1 1 Specialty Diagnoses / Procedures Referred By Binu t Referred To Contact Nutrition Diagnoses BMI 50.0-59.9, adult (HCC) Type 2 diabetes mellitus with hyperglycemia, 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) Procedures CONSULT TO NUTRITION THERAPY OFFICE/OUTPATIENT [facility] 60-[place] [address] [place] [address] Referral ID Status Reason Start Date Expiration Date Visits Requested Visits Authorized [id number] Authorized PCP Requested Referral 04/03/2022 04/03/2023 1 1 Specialty Diagnoses / Procedures Referred By Contac t Referred To Contact Endocrinology Diagnoses Thyroid nodule Procedures CONSULT TO ENDOCRINOLOGY OFFICE/OUTPATIENT [facility] 60-74 MINUTES Lopez Salmon DO [address] [place] [address] Referral ID Status Reason Start Date Expiration Date Visits Requested Visits Authorized [id number] Authorized PCP Requested Referral 04/03/2022 04/03/2023 1 1 Specialty Diagnoses / Procedures Referred By Contac t Referred To Contact Orthopedics Diagnoses Primary osteoarthritis of left hip Procedures CONSULT TO ORTHOPAEDICS OFFICE/OUTPATIENT [facility] 60-74 MINUTES Nayan Yan DO [facility] [address] [place] [address] Referral ID Status Reason Start Date Expiration Date Visits Requested Visits Authorized [id number] Authorized PCP Requested Referral 03/23/2022 03/23/2023 1 1 Specialty Diagnoses / Procedures Referred By Contac t Referred To Contact XR IMAGING Diagnoses Primary osteoarthritis of left hip Procedures XR HIP GENERAL 3V PELV/AP/LAT LEFT RADEX HIP UNILATERAL WITH PELVIS 2-3 VIEWS Nayan Yan DO [facility] [place] [id number] Xr Imaging Referral ID Status Reason Start Date Expiration Date V isits Requested Visits Authorized [id number] Closed Auto-Generate d Referral 03/23/2022 04/22/2023 1 1 Specialty Diagnoses / Procedures Referred By Contac t Referred To Contact [facility] Diagnoses Neck pain Procedures CONSULT TO PHYSICAL THERAPY PHYSICAL THERAPY EVALUATION HIGH COMPLEX 45 MINS Lopez Salmon DO [address] [place] [address] [facility] [address] [address] Referral ID Status Reason Start Date Expiration Date Visits Requested Visits Authorized [id number] Authorized PCP Requested Referral Auto-Generate d Referral 03/23/2022 03/23/2023 99 99 Specialty Diagnoses / Procedures Referred By Contac t Referred To Contact [facility] Diagnoses Right arm weakness Procedures CONSULT TO SPIRAL WEAVER OCCUPATIONAL THERAPY EVAL HIGH COMPLEX 60 MINS Lopez Salmon DO [address] [place] [address] [facility] [address] [address] Referral ID Status Reason Start Date Expiration Date Visits Requested Visits Authorized [id number] Authorized PCP Requested Referral Auto-Generate d Referral 03/15/2022 03/15/2023 99 99 Specialty Diagnoses / Procedures Referred By Contac t Referred To Contact [facility] Diagnoses Right arm weakness Procedures CONSULT TO PHYSICAL THERAPY PHYSICAL THERAPY EVALUATION HIGH COMPLEX 45 MINS Lopez Salmon DO [address] [place] [address] [facility] [address] [address] Referral ID Status Reason Start Date Expiration Date Visits Requested Visits Authorized [id number] Authorized PCP Requested Referral Auto-Generate d Referral 03/15/2022 03/15/2023 99 99 Chief Complaint and Reason for Visit Chief Complaint R92.8 Chief Complaint R06.00 Chief Complaint R06.00 Dysuria Chief Complaint R30.0 Chief Complaint e04.1 Reason for Visit Multiple thyroid nod ules Additional Source Comments INFORMATION SOURCE (unrecogn ized section and content) DATE CREATED AUTHOR 10/15/2018 [facility] DATE CREATED AUTHOR AUTHOR'S ORGANIZ ATION 08/03/2021 [facility] DATE CREATED AUTHOR AUTHOR'S ORGANIZ ATION 02/10/2022 [facility] Specialist DATE CREATED AUTHOR AUTHOR'S ORGANIZ ATION 07/06/2022 [facility] DATE CREATED AUTHOR AUTHOR'S ORGANIZ ATION 12/13/2022 [facility] DATE CREATED AUTHOR AUTHOR'S ORGANIZ ATION 03/02/2023 [facility] DATE CREATED AUTHOR AUTHOR'S ORGANIZ ATION 09/23/2023 [facility] DATE CREATED AUTHOR AUTHOR'S ORGANIZ ATION 09/28/2023 [facility] DATE CREATED AUTHOR AUTHOR'S ORGANIZ ATION 10/11/2023 [facility] DATE CREATED AUTHOR AUTHOR'S ORGANIZ ATION 11/06/2023 [facility] DATE CREATED AUTHOR AUTHOR'S ORGANIZ ATION 11/13/2023 [facility] Source Comments (unrecognize d section and content) In the event this informatio n is protected by the Federal Confidentiality of Alcohol and Drug Abuse Patient Records regulations: The Federal rules restrict any use of the information to criminally investigate or prosecute any alcohol or drug abuse patient.[facility] the event this information is protected by the Federal Confidentiality of Alcohol and Drug Abuse Patient Records regulations: The Federal rules restrict any use of the information to criminally investigate or prosecute any alcohol or drug abuse patient.[facility] Rehabilitation[facility] the event this information is protected by the Federal Confidentiality of Alcohol and Drug Abuse Patient Records regulations: The Federal rules restrict any use of the information to criminally investigate or prosecute any alcohol or drug abuse patient.[facility] Rehabilitation[facility] the event this information is protected by the Federal Confidentiality of Alcohol and Drug Abuse Patient Records regulations: The Federal rules restrict any use of the information to criminally investigate or prosecute any alcohol or drug abuse patient.[facility] RehabilitationIn the event this information is protected by the Federal Confidentiality of Alcohol and Drug Abuse Patient Records regulations: The Federal rules restrict any use of the information to criminally investigate or prosecute any alcohol or drug abuse patient.[facility] RehabilitationIn the event this information is protected by the Federal Confidentiality of Alcohol and Drug Abuse Patient Records regulations: The Federal rules restrict any use of the information to criminally investigate or prosecute any alcohol or drug abuse patient.[facility] RehabilitationIn the event this information is protected by the Federal Confidentiality of Alcohol and Drug Abuse Patient Records regulations: The Federal rules restrict any use of the information to criminally investigate or prosecute any alcohol or drug abuse patient.[facility] RehabilitationIn the event this information is protected by the Federal Confidentiality of Alcohol and Drug Abuse Patient Records regulations: The Federal rules restrict any use of the information to criminally investigate or prosecute any alcohol or drug abuse patient.[facility] RehabilitationIn the event this information is protected by the Federal Confidentiality of Alcohol and Drug Abuse Patient Records regulations: The Federal rules restrict any use of the information to criminally investigate or prosecute any alcohol or drug abuse patient.[facility] RehabilitationIn the event this information is protected by the Federal Confidentiality of Alcohol and Drug Abuse Patient Records regulations: The Federal rules restrict any use of the information to criminally investigate or prosecute any alcohol or drug abuse patient.[facility] RehabilitationIn the event this information is protected by the Federal Confidentiality of Alcohol and Drug Abuse Patient Records regulations: The Federal rules restrict any use of the information to criminally investigate or prosecute any alcohol or drug abuse patient.[facility] RehabilitationIn the event this information is protected by the Federal Confidentiality of Alcohol and Drug Abuse Patient Records regulations: The Federal rules restrict any use of the information to criminally investigate or prosecute any alcohol or drug abuse patient.[facility] RehabilitationIn the event this information is protected by the Federal Confidentiality of Alcohol and Drug Abuse Patient Records regulations: The Federal rules restrict any use of the information to criminally investigate or prosecute any alcohol or drug abuse patient.[facility] RehabilitationIn the event this information is protected by the Federal Confidentiality of Alcohol and Drug Abuse Patient Records regulations: The Federal rules restrict any use of the information to criminally investigate or prosecute any alcohol or drug abuse patient.[facility] RehabilitationIn the event this information is protected by the Federal Confidentiality of Alcohol and Drug Abuse Patient Records regulations: The Federal rules restrict any use of the information to criminally investigate or prosecute any alcohol or drug abuse patient.[facility] RehabilitationIn the event this information is protected by the Federal Confidentiality of Alcohol and Drug Abuse Patient Records regulations: The Federal rules restrict any use of the information to criminally investigate or prosecute any alcohol or drug abuse patient.[facility] RehabilitationIn the event this information is protected by the Federal Confidentiality of Alcohol and Drug Abuse Patient Records regulations: The Federal rules restrict any use of the information to criminally investigate or prosecute any alcohol or drug abuse patient.[facility] RehabilitationIn the event this information is protected by the Federal Confidentiality of Alcohol and Drug Abuse Patient Records regulations: The Federal rules restrict any use of the information to criminally investigate or prosecute any alcohol or drug abuse patient.[facility] RehabilitationIn the event this information is protected by the Federal Confidentiality of Alcohol and Drug Abuse Patient Records regulations: The Federal rules restrict any use of the information to criminally investigate or prosecute any alcohol or drug abuse patient.[facility] RehabilitationIn the event this information is protected by the Federal Confidentiality of Alcohol and Drug Abuse Patient Records regulations: The Federal rules restrict any use of the information to criminally investigate or prosecute any alcohol or drug abuse patient.[facility] RehabilitationIn the event this information is protected by the Federal Confidentiality of Alcohol and Drug Abuse Patient Records regulations: The Federal rules restrict any use of the information to criminally investigate or prosecute any alcohol or drug abuse patient.[facility] RehabilitationIn the event this information is protected by the Federal Confidentiality of Alcohol and Drug Abuse Patient Records regulations: The Federal rules restrict any use of the information to criminally investigate or prosecute any alcohol or drug abuse patient.[facility] RehabilitationIn the event this information is protected by the Federal Confidentiality of Alcohol and Drug Abuse Patient Records regulations: The Federal rules restrict any use of the information to criminally investigate or prosecute any alcohol or drug abuse patient.[facility] RehabilitationIn the event this information is protected by the Federal Confidentiality of Alcohol and Drug Abuse Patient Records regulations: The Federal rules restrict any use of the information to criminally investigate or prosecute any alcohol or drug abuse patient.[facility] RehabilitationIn the event this information is protected by the Federal Confidentiality of Alcohol and Drug Abuse Patient Records regulations: The Federal rules restrict any use of the information to criminally investigate or prosecute any alcohol or drug abuse patient.[facility] RehabilitationIn the event this information is protected by the Federal Confidentiality of Alcohol and Drug Abuse Patient Records regulations: The Federal rules restrict any use of the information to criminally investigate or prosecute any alcohol or drug abuse patient.[facility] RehabilitationIn the event this information is protected by the Federal Confidentiality of Alcohol and Drug Abuse Patient Records regulations: The Federal rules restrict any use of the information to criminally investigate or prosecute any alcohol or drug abuse patient.[facility] RehabilitationIn the event this information is protected by the Federal Confidentiality of Alcohol and Drug Abuse Patient Records regulations: The Federal rules restrict any use of the information to criminally investigate or prosecute any alcohol or drug abuse patient.[facility] RehabilitationIn the event this information is protected by the Federal Confidentiality of Alcohol and Drug Abuse Patient Records regulations: The Federal rules restrict any use of the information to criminally investigate or prosecute any alcohol or drug abuse patient.[facility] RehabilitationIn the event this information is protected by the Federal Confidentiality of Alcohol and Drug Abuse Patient Records regulations: The Federal rules restrict any use of the information to criminally investigate or prosecute any alcohol or drug abuse patient.[facility] RehabilitationIn the event this information is protected by the Federal Confidentiality of Alcohol and Drug Abuse Patient Records regulations: The Federal rules restrict any use of the information to criminally investigate or prosecute any alcohol or drug abuse patient.[facility] RehabilitationIn the event this information is protected by the Federal Confidentiality of Alcohol and Drug Abuse Patient Records regulations: The Federal rules restrict any use of the information to criminally investigate or prosecute any alcohol or drug abuse patient.[facility] RehabilitationIn the event this information is protected by the Federal Confidentiality of Alcohol and Drug Abuse Patient Records regulations: The Federal rules restrict any use of the information to criminally investigate or prosecute any alcohol or drug abuse patient.[facility] RehabilitationIn the event this information is protected by the Federal Confidentiality of Alcohol and Drug Abuse Patient Records regulations: The Federal rules restrict any use of the information to criminally investigate or prosecute any alcohol or drug abuse patient.[facility] RehabilitationIn the event this information is protected by the Federal Confidentiality of Alcohol and Drug Abuse Patient Records regulations: The Federal rules restrict any use of the information to criminally investigate or prosecute any alcohol or drug abuse patient.[facility] RehabilitationIn the event this information is protected by the Federal Confidentiality of Alcohol and Drug Abuse Patient Records regulations: The Federal rules restrict any use of the information to criminally investigate or prosecute any alcohol or drug abuse patient.[facility] RehabilitationIn the event this information is protected by the Federal Confidentiality of Alcohol and Drug Abuse Patient Records regulations: The Federal rules restrict any use of the information to criminally investigate or prosecute any alcohol or drug abuse patient.[facility] RehabilitationIn the event this information is protected by the Federal Confidentiality of Alcohol and Drug Abuse Patient Records regulations: The Federal rules restrict any use of the information to criminally investigate or prosecute any alcohol or drug abuse patient.[facility] RehabilitationIn the event this information is protected by the Federal Confidentiality of Alcohol and Drug Abuse Patient Records regulations: The Federal rules restrict any use of the information to criminally investigate or prosecute any alcohol or drug abuse patient.[facility] RehabilitationIn the event this information is protected by the Federal Confidentiality of Alcohol and Drug Abuse Patient Records regulations: The Federal rules restrict any use of the information to criminally investigate or prosecute any alcohol or drug abuse patient.[facility] RehabilitationIn the event this information is protected by the Federal Confidentiality of Alcohol and Drug Abuse Patient Records regulations: The Federal rules restrict any use of the information to criminally investigate or prosecute any alcohol or drug abuse patient.[facility] RehabilitationIn the event this information is protected by the Federal Confidentiality of Alcohol and Drug Abuse Patient Records regulations: The Federal rules restrict any use of the information to criminally investigate or prosecute any alcohol or drug abuse patient.[facility] RehabilitationIn the event this information is protected by the Federal Confidentiality of Alcohol and Drug Abuse Patient Records regulations: The Federal rules restrict any use of the information to criminally investigate or prosecute any alcohol or drug abuse patient.[facility] RehabilitationIn the event this information is protected by the Federal Confidentiality of Alcohol and Drug Abuse Patient Records regulations: The Federal rules restrict any use of the information to criminally investigate or prosecute any alcohol or drug abuse patient.[facility] RehabilitationIn the event this information is protected by the Federal Confidentiality of Alcohol and Drug Abuse Patient Records regulations: The Federal rules restrict any use of the information to criminally investigate or prosecute any alcohol or drug abuse patient.[facility] RehabilitationIn the event this information is protected by the Federal Confidentiality of Alcohol and Drug Abuse Patient Records regulations: The Federal rules restrict any use of the information to criminally investigate or prosecute any alcohol or drug abuse patient.[facility] RehabilitationIn the event this information is protected by the Federal Confidentiality of Alcohol and Drug Abuse Patient Records regulations: The Federal rules restrict any use of the information to criminally investigate or prosecute any alcohol or drug abuse patient.[facility] RehabilitationIn the event this information is protected by the Federal Confidentiality of Alcohol and Drug Abuse Patient Records regulations: The Federal rules restrict any use of the information to criminally investigate or prosecute any alcohol or drug abuse patient.[facility] Care Teams (unrecognized sec tion and content) Team Status: Active Member Role Status Dates Janet Dillard , DO Primary Care Provider Active Team Status: Inactive Member Role Status Dates Janet Dillard , DO Primary Care Provider Active Nikko Astorga , DO Attending Provider Active Team Status: Inactive Member Role Status Dates DEEPA Ann Attending Provider Active Team Status: Inactive Member Role Status Dates Janet Dillard , DO Primary Care Provider Active Kaylene Lilly , DO Attending Provider Active Supervisor Title Relationship Specialty Start Date End Date Rita Amanda PCP - General 01/28/07 Janet Dillard, DO [address] [place] [address] Referring Family Practice 07/14/21 Supervisor Title Relationship Specialty Start Date End Date Rita Amanda PCP - General 01/28/07 Janet Dillard, DO [address] [place] [address] Referring Family Practice 07/14/21 Supervisor Title Relationship Specialty Start Date End Date Rita Amanda PCP - General 01/28/07 Janet Dillard, DO [address] [place] [address] Referring Family Practice 07/14/21 Supervisor Title Relationship Specialty Start Date End Date Rita Amanda PCP - General 01/28/07 Janet Dillard, DO [address] [place] [address] Referring Family Practice 07/14/21 Supervisor Title Relationship Specialty Start Date End Date Rita Amanda PCP - General 01/28/07 Janet Dillard, DO [address] [place] [address] Referring Family Practice 07/14/21 Supervisor Title Relationship Specialty Start Date End Date Rita Amanda PCP - General 01/28/07 Janet Dillard, DO [address] [place] [address] Referring Family Practice 07/14/21 Supervisor Title Relationship Specialty Start Date End Date Rita Amandad PCP - General 01/28/07 Janet Dillard, DO [address] [facility] [address] Referring Family Practice 07/14/21 Supervisor Title Relationship Specialty Start Date End Date Rita Amandad PCP - General 01/28/07 Janet Dillard, DO [address] [place] [address] Referring Family Practice 07/14/21 Supervisor Title Relationship Specialty Start Date End Date Kelly Amandatate Cha PCP - General 01/28/07 Janet Dillard, DO [address] [facility] [place] [address] Referring Family Practice 07/14/21 Supervisor Title Relationship Specialty Start Date End Date Rita Amandad PCP - General 01/28/07 Janet Dillard, DO [address] [place] [address] Referring Family Practice 07/14/21 Team Status: Inactive Member Role Status Dates HENRIK Haas Attending Provider Active Emily Benson APRN Referring Provider Active Janet Dillard DO Primary Care Provider Active Supervisor Title Relationship Specialty Start Date End Date Kelly Amandatate Cha PCP - General 01/28/07 Janet Dillard, DO [address] [place] [address] Referring Family Medicine 07/14/21 Supervisor Title Relationship Specialty Start Date End Date Rita Amanda PCP - General 01/28/07 Janet Dillard, DO [address] [place] [address] Referring Family Medicine 07/14/21 Team Status: Inactive Member Role Status Dates DEEPA Ann Attending Provider Active PHYSICIAN NO FAMILY Primary Care Provider Active Supervisor Title Relationship Specialty Start Date End Date Rita Amanda PCP - General 01/28/07 Janet Dillard, DO [address] [facility] [place] [address] Referring Family Medicine 07/14/21 Supervisor Title Relationship Specialty Start Date End Date Rita Amanda PCP - General 01/28/07 Janet Dillard, DO [address] [place] [address] Referring Family Medicine 07/14/21 Supervisor Title Relationship Specialty Start Date End Date Rita Amanda PCP - General 01/28/07 Janet Dillard, DO [address] [place] [address] Referring Family Medicine 07/14/21 Supervisor Title Relationship Specialty Start Date End Date Rita Amanda PCP - General 01/28/07 Janet Dillard, DO [address] [place] [address] Referring Family Medicine 07/14/21 Supervisor Title Relationship Specialty Start Date End Date Rita Amanda PCP - General 01/28/07 Janet Dillard, DO [address] [facility] [address] Referring Family Medicine 07/14/21 Supervisor Title Relationship Specialty Start Date End Date Rita Amanda PCP - General 01/28/07 Janet Dillard, DO [address] [place] [address] Referring Family Medicine 07/14/21 Supervisor Title Relationship Specialty Start Date End Date Rita Amanda PCP - General 01/28/07 Janet Dillard, DO [address] [place] [address] Referring Family Medicine 07/14/21 Supervisor Title Relationship Specialty Start Date End Date IngramRita swann PCP - General 01/28/07 Janet Dillard, DO [address] [facility] [address] Referring Family Medicine 07/14/21 Supervisor Title Relationship Specialty Start Date End Date Rita Amandad PCP - General 01/28/07 Janet Dillard, DO [address] [place] [address] Referring Family Medicine 07/14/21 Supervisor Title Relationship Specialty Start Date End Date IngramRita swann PCP - General 01/28/07 Janet Dillard DO [address] [facility] [place] [address] Referring Family Medicine 07/14/21 Supervisor Title Relationship Specialty Start Date End Date TreasureRita swannd PCP - General 01/28/07 Janet Dillard DO [address] [place] [address] Referring Family Medicine 07/14/21 Supervisor Title Relationship Specialty Start Date End Date Sunny Jenkins MD [address] [place] [address] PCP - General Internal Medicine 04/02/23 Supervisor Title Relationship Specialty Start Date End Date Sunny Jenkins MD [address] [place] [address] PCP - General Internal Medicine 04/02/23 Supervisor Title Relationship Specialty Start Date End Date Sunny Jenkins MD [address] [facility] [place] [address] PCP - General Internal Medicine 08/22/23 Janet Dillard DO [address] [place] [address] Referring Family Medicine 07/14/21 Yvonne Baumann RN [address] [place], [place] [id number] Specialty Drop Count Associate Hematology/Oncology 09/23/23 Mitch Garcia MD [address] [place] [address] Physician Hematology/Oncology 09/23/23 Cathy Templeton PA-C [address] [facility] [place] [address] Physician Demand Planner Hematology/Oncology 09/23/23 Deepika Garcia, DRY PLACER MACHINE OPERATOR Educational Diagnostician 09/24/23 Supervisor Title Relationship Specialty Start Date End Date Sunny Jenkins MD [address] [facility] [place] [address] PCP - General Internal Medicine 08/22/23 Janet Dillard DO [address] [place] [address] Referring Family Medicine 07/14/21 Yvonne Baumann RN [address] [facility] [place] [address] Specialty Drop Count Associate Hematology/Oncology 09/23/23 Mitch Garcia MD [address] [facility] [place] [address] Physician Hematology/Oncology 09/23/23 Cathy Templeton PA-C [address] [facility] [place] [address] Physician Demand Planner Hematology/Oncology 09/23/23 Deepika Garcia, [facility] Educational Diagnostician 09/24/23 Supervisor Title Relationship Specialty Start Date End Date Sunny Jenkins MD [address] [place] [address] PCP - General Internal Medicine 08/22/23 Janet Dillard DO [address] [place] [address] Referring Family Medicine 07/14/21 Yvonne Baumann RN [address] [facility] [place] [address] Specialty Drop Count Associate Hematology/Oncology 09/23/23 Mitch Garcia MD [address] [facility] [place] [address] Physician Hematology/Oncology 09/23/23 Cathy Templeton, PALeonelC [address] [facility] [place] [address] Physician Demand Planner Hematology/Oncology 09/23/23 Deepika Garcia, [facility] Educational Diagnostician 09/24/23 Supervisor Title Relationship Specialty Start Date End Date Sunny Jenkins MD [address] [place] [address] PCP - General Internal Medicine 04/02/23 Supervisor Title Relationship Specialty Start Date End Date Sunny Jenkins MD [address] [place] [address] PCP - General Internal Medicine 08/22/23 Janet Dillard DO [address] [place] [address] Referring Family Medicine 07/14/21 Yvonne Baumann RN [address] [facility] [place] [address] Specialty Drop Count Associate Hematology/Oncology 09/23/23 Mitch Garcia MD [address] [facility] [place] [address] Physician Hematology/Oncology 09/23/23 Cathy Templeton PA-C [address] [place] [address] [place] [address] Physician Demand Planner Hematology/Oncology 09/23/23 Deepika Garcia LSW Educational Diagnostician 09/24/[address] [place] [address] [place] [address] Registered Dietitian Nutrition 10/22/23 Supervisor Title Relationship Specialty Start Date End Date Sunny Jenkins MD [address] [place] [address] PCP - General Internal Medicine 08/22/23 Janet Dillard DO [address] [place] [address] Referring Family Medicine 07/14/21 Yvonne Baumann RN [address] [place] [address] Specialty Drop Count Associate Hematology/Oncology 09/23/23 Mitch Garcia MD [address] [facility] [place] [address] Physician Hematology/Oncology 09/23/23 Cathy Templeton PA-C [address] [place] [address] [place] [address] Physician Demand Planner Hematology/Oncology 09/23/23 Deepika Garcia, DRY PLACER MACHINE OPERATOR Educational Diagnostician 09/24/[address] [place] [address] Registered Dietitian Nutrition 10/22/23 Supervisor Title Relationship Specialty Start Date End Date Sunny Jenkins MD [address], [place], [place] [id number] PCP - General Internal Medicine 08/22/23 Janet Dillard DO [address] [place] [place], [place] [address] Referring Family Medicine 07/14/21 Yvonne Baumann RN [address] [place] [address] Specialty Drop Count Associate Hematology/Oncology 09/23/23 Mitch Garcia MD [address] [place] [address] [place] [address] Physician Hematology/Oncology 09/23/23 Cathy Templeton, PALeonelC [address] [place] [address] Physician Demand Planner Hematology/Oncology 09/23/23 Deepika Garcia, [facility] Educational Diagnostician 09/24/[address] [place] [address] Registered Dietitian Nutrition 10/22/23 Supervisor Title Relationship Specialty Start Date End Date Sunny Jenkins MD [address], [place] [address] PCP - General Internal Medicine 08/22/23 Janet Dillard DO [address] [facility] [place] [address] Referring Family Medicine 07/14/21 Yvonne Baumann, RN [address] [place] [address] Specialty Drop Count Associate Hematology/Oncology 09/23/23 Mitch Garcia MD [address] [place] [address] [place] [address] Physician Hematology/Oncology 09/23/23 Cathy Templeton, PA-C [address] [place] [address] [place], [place] [id number] Physician Demand Planner Hematology/Oncology 09/23/23 Deepika Garcia LSW Educational Diagnostician 09/24/[address] [place] [address] [place] [address] Registered Dietitian Nutrition 10/22/23 Supervisor Title Relationship Specialty Start Date End Date Sunny Jenkins MD [address] [facility] [place] [address] PCP - General Internal Medicine 08/22/23 Janet Dillard DO [address] [facility] [place] [address] Referring Family Medicine 07/14/21 Yvonne Baumann RN [address] [place] [address] Specialty Drop Count Associate Hematology/Oncology 09/23/23 Mitch Garcia MD [address] [place] [address] [place] [address] Physician Hematology/Oncology 09/23/23 Cathy Templeton PA-C [address] [place] [address] [place] [address] Physician Demand Planner Hematology/Oncology 09/23/23 Deepika Garcia, DRY PLACER MACHINE OPERATOR Educational Diagnostician 09/24/[address] [place] [address] Registered Dietitian Nutrition 10/22/23 Supervisor Title Relationship Specialty Start Date End Date Sunny Jenkins MD [address] [place] [address] PCP - General Internal Medicine 08/22/23 Janet Dillard DO [address] [place] [address] Referring Family Medicine 07/14/21 Yvonne Baumann, RN [address] [place] [address] Specialty Drop Count Associate Hematology/Oncology 09/23/23 Mitch Garcia MD [address] [place] [address] [place] [address] Physician Hematology/Oncology 09/23/23 Cathy Templeton PA-C [address] [place] [address] [place] [address] Physician Demand Planner Hematology/Oncology 09/23/23 Deepika Garcia LSW Educational Diagnostician 09/24/[address] [place] [address] [place] [address] Registered Dietitian Nutrition 10/22/23 Supervisor Title Relationship Specialty Start Date End Date Sunny Jenkins MD [address] [place], [place] [id number] PCP - General Internal Medicine 08/22/23 Janet Dillard DO [address] [place] [address] Referring Family Medicine 07/14/21 Yvonne Baumann RN [address] [facility] [place] [address] Specialty Drop Count Associate Hematology/Oncology 09/23/23 Mitch Garcia MD [address] [facility] [place] [address] Physician Hematology/Oncology 09/23/23 Cathy Templeton, VERNELLC [address] [facility] [place] [address] Physician Demand Planner Hematology/Oncology 09/23/23 Deepika Garcia LSW Educational Diagnostician 09/24/[address] [place], [place] [address] [facility] [place] [address] Registered Dietitian Nutrition 10/22/23 Supervisor Title Relationship Specialty Start Date End Date Sunny Jenkins MD [address] [place] [address] PCP - General Internal Medicine 08/22/23 Janet Dillard DO [address] [place] [address] Referring Family Medicine 07/14/21 Yvonne Baumann RN [address] [facility] [place] [address] Specialty Drop Count Associate Hematology/Oncology 09/23/23 Mitch Garcia MD [address] [place] [address] [place] [address] Physician Hematology/Oncology 09/23/23 Cathy Templeton PA-C [address] [place] [address] [place] [address] Physician Demand Planner Hematology/Oncology 09/23/23 Deepika Garcia LSW Educational Diagnostician 09/24/[address] [place] [address] Registered Dietitian Nutrition 10/22/23 Supervisor Title Relationship Specialty Start Date End Date Sunny Jenkins MD [address] [place], [place] [id number] PCP - General Internal Medicine 04/02/23 Supervisor Title Relationship Specialty Start Date End Date Sunny Jenkins MD [address] [place] [address] PCP - General Internal Medicine 08/22/23 Janet Dillard DO [address] [facility] [place] [address] Referring Family Medicine 07/14/21 Yvonne Baumann, RN [address] [place] [address] Specialty Drop Count Associate Hematology/Oncology 09/23/23 Mitch Garcia MD [address] [place] [address] [place] [address] Physician Hematology/Oncology 09/23/23 Cathy Templeton PA-C [address] [place] [address] [place] [address] Physician Demand Planner Hematology/Oncology 09/23/23 Deepika Garcia, DRY PLACER MACHINE OPERATOR Educational Diagnostician 09/24/[address] [place] [address] [place] [address] Registered Dietitian Nutrition 10/22/23 Supervisor Title Relationship Specialty Start Date End Date Sunny Jenkins MD [address] [place] [address] PCP - General Internal Medicine 08/22/23 Janet Dillard DO [address] [place], [place] [id number] Referring Family Medicine 07/14/21 Yvonne Baumann RN [address] [place], [place] [id number] Specialty Drop Count Associate Hematology/Oncology 09/23/23 Mitch Garcia MD [address] [place] [address] [place] [address] Physician Hematology/Oncology 09/23/23 Cathy Templeton PA-C [address] [place] [address] [place] [address] Physician Demand Planner Hematology/Oncology 09/23/23 Deepika Garcia, [facility] Educational Diagnostician 09/24/[address] [place] [address] [place] [address] Registered Dietitian Nutrition 10/22/23 Supervisor Title Relationship Specialty Start Date End Date Sunny Jenkins MD [address] [place] [place] [id number] PCP - General Internal Medicine 08/22/23 Janet Dillard DO [address] [place], [place] [id number] Referring Family Medicine 07/14/21 Yvonne Baumann, RN [address] [place] [address] [place] [address] Specialty Drop Count Associate Hematology/Oncology 09/23/23 Mitch Garcia MD [address] [place] [address] [place] [address] Physician Hematology/Oncology 09/23/23 Cathy Templeton, PA-C [address] [place] [address] [place] [address] Physician Demand Planner Hematology/Oncology 09/23/23 Deepika Garcia LSW Educational Diagnostician 09/24/[address] [place] [address] [place] [address] Registered Dietitian Nutrition 10/22/23 Supervisor Title Relationship Specialty Start Date End Date Sunny Jenkins MD [address] [place] [address] PCP - General Internal Medicine 04/02/23 Supervisor Title Relationship Specialty Start Date End Date Sunyn Jenkins MD [address] [place] [address] PCP - General Internal Medicine 04/02/23 Supervisor Title Relationship Specialty Start Date End Date Sunny Jenkins MD [address] [place] [id number] PCP - General Internal Medicine 08/22/23 Janet Dillard DO [address] [facility] [place] [address] Referring Family Medicine 07/14/21 Yvonne Baumann, RN [address] [place] [address] Specialty Drop Count Associate Hematology/Oncology 09/23/23 Mitch Garica MD [address] [place] [address] [place], [place] [id number] Physician Hematology/Oncology 09/23/23 Cathy Templeton PA-C [address] [place] [address] [place] [address] Physician Demand Planner Hematology/Oncology 09/23/23 Deepika Garcia LSW Educational Diagnostician 09/24/[address] [place] [address] [place] [address] Registered Dietitian Nutrition 10/22/23 Supervisor Title Relationship Specialty Start Date End Date Sunny Jenkins MD [address] [facility] [place] [address] PCP - General Internal Medicine 08/22/23 Janet Dillard DO [address] [facility] [place] [address] Referring Family Medicine 07/14/21 Yvonne Baumann RN [address] [place] [address] Specialty Drop Count Associate Hematology/Oncology 09/23/23 Mitch Garcia MD [address] [place] [address] [place] [address] Physician Hematology/Oncology 09/23/23 Cathy Templeton PA-C [address] [place] [address] [place] [address] Physician Demand Planner Hematology/Oncology 09/23/23 Deepika Garcia LSW Educational Diagnostician 09/24/[address] [place] [address] Registered Dietitian Nutrition 10/22/23 Reason for Visit (unrecogniz ed section and content) Reason Comments Event Zio patch Reason Comments Results Reason Comments Pain Reason Comments Established Patient Pain Reason Comments Orders Reason Comments New Pain Specialty Diagnoses / Procedures Referred By Contac t Referred To Contact Orthopedics Diagnoses Primary osteoarthritis of left hip Procedures CONSULT TO ORTHOPAEDICS OFFICE/OUTPATIENT NEW HIGH MDM 60-74 MINUTES Nayan Yan, [facility] [address] [place] [address] Referral ID Status Reason Start Date Expiration Date V isits Requested Visits Authorized [id number] Closed PCP Requested Referral 03/23/2022 03/23/2023 1 1 Reason Comments New Patient Evaluation Reason Comments Established Patient Left Hip Pain Reason Comments GERD Reason Comments Reschedule PACC Reason Comments Radiology Mammogram Specialty Diagnoses / Procedures Referred By Contac t Referred To Contact BR IMAGING Diagnoses Malignant neoplasm of left female breast, unspecified estrogen receptor status, unspecified site of breast (HCC) Procedures US AXILLA ONLY LEFT US LMTD JOINT/OTH NONVASC XTR STRUX R-T W/[place] [address] [place] [address] Br Imaging [address] [place] [address] Referral ID Status Reason Start Date Expiration Date V isits Requested Visits Authorized [id number] Closed Auto-Generate d Referral 07/17/2023 08/15/2024 1 1 Reason Comments Consult Reason Comments Drop Count Associate - Other methotrexate Reason Comments Radiology NM Reason Comments Established Patient Reason Comments Care Coordination appointments Reason Comments Patient Question Reason Comments Sinus Problem Fever Cough Sore Throat Reason Comments Care Coordination Clinical Information Request Reason Comments Care Coordination Treatment reschedule Reason Comments Breast Cancer OTV Reason Comments Nutrition Assessment Specialty Diagnoses / Procedures Referred By Contdanita t Referred To Contact Diagnoses Invasive lobular carcinoma of breast in female (HCC) Mitch Garcia MD [address] [facility] [place] [address] Adolfo Treat Francine [address] [place] [address] Referral ID Status Reason Start Date Expiration Date V isits Requested Visits Authorized [id number] Authorized 09/17/2023 12/16/2023 99 99 Reason Comments Disability Madi Reason Comments Post Op Reason Onset Date Comments Med Refill 11/01/2023 Reason Comments Lab Orders Reason Comments Care Coordination PE Reason Comments Breast Cancer Reason Comments Care Coordination Hospital update Reason Comments Care Coordination Hospital d/c follow up call Reason Comments Care Coordination Medication update Goals (unrecognized section and content) Goals may be documented in a n alternate section Inactive Administered Medications - up to 3 most recent administrations Administered Medications (un recognized section and content) Medication Order MAR Action Action Date Dose Rate Site cycloPHOSphamide 1,404 mg in NaCl 0.9% 345.2 mL (CYTOXAN) 1,404 mg (600 mg/m2 2.34 m2 Treatment Plan BSA from Recorded weight), INTRAVENOUS, Administer over 30 Minutes, ONCE, 1 dose, On Sat10/22/23 at 1030, EXP:_ 0130 10/23/23 Hazardous Chemotherapy Drug: Use appropriate PPE. New Bag/Syringe/Bottle 10/22/2023 11:52 AM EST 1,404 mg dexAMETHasone 10 mg in NaCl 0.9% 50 mL (DECADRON) 10 mg, INTRAVENOUS, ONCE, 1 dose, On Sat10/22/23 at 1030, Refrigerate. New Bag/Syringe/Bottle 10/22/2023 10:33 AM EST 10 mg DOXOrubicin 140.4 mg injection (ADRIAMYCIN) 140.4 mg (60 mg/m2 2.34 m2 Treatment Plan BSA from Recorded weight), INTRAVENOUS, ONCE, 1 dose, On Sat10/22/23 at 1030, CAUTION: vesicant -- EXP:0920 10/23/23 Administer total dose over 15 minutes. Hazardous Chemotherapy Drug: Use appropriate PPE. Antineoplastic Vesicant. Given 10/22/2023 11:29 AM EST 140.4 mg fosaprepitant 150 mg in NaCl 0.9% 250 mL (EMEND) 150 mg, INTRAVENOUS, Administer over 30 Minutes, ONCE, 1 dose, On Sat10/22/23 at 1030, Approximate Total Volume = 280 mL Mix in non-DEHP bag - Refrigerate New Bag/Syringe/Bottle 10/22/2023 10:52 AM EST 150 mg palonosetron 0.25 mg injection (ALOXI) 0.25 mg, INTRAVENOUS, ONCE, 1 dose, On Sat10/22/23 at 1030, Flush IV line with NS prior to and following administration. Given 10/22/2023 10:33 AM EST 0.25 mg Inactive Administered Medications - up to 3 most recent administrations Medication Order MAR Action Action Date Dose Rate Site pegfilgrastim-jmdb 6 mg injection (FULPHILA) 6 mg, SUBCUTANEOUS, ONCE, 1 dose, On Sat10/23/23 at 1400, Refrigerate - Protect From Light - Do Not Shake - Allow prefilled syringe to reach room temperature for at least 30 minutes prior to injection. Given 10/23/2023 1:48 PM EST 6 mg Arm, Right Inactive Administered Medications - up to 3 most recent administrations Medication Order MAR Action Action Date Dose Rate Site cycloPHOSphamide 1,404 mg in NaCl 0.9% 345.2 mL (CYTOXAN) 1,404 mg (600 mg/m2 2.34 m2 Treatment Plan BSA from Recorded weight), INTRAVENOUS, Administer over 30 Minutes, ONCE, 1 dose, On Sat11/05/23 at 1100, EXP: 1100 11/06/23 Hazardous Chemotherapy Drug: Use appropriate PPE. New Bag/Syringe/Bottle 11/05/2023 12:21 PM EDT 1,404 mg dexAMETHasone 10 mg in NaCl 0.9% 50 mL (DECADRON) 10 mg, INTRAVENOUS, ONCE, 1 dose, On Sat11/05/23 at 1100, Refrigerate. New Bag/Syringe/Bottle 11/05/2023 10:56 AM EDT 10 mg DOXOrubicin 140.4 mg injection (ADRIAMYCIN) 140.4 mg (60 mg/m2 2.34 m2 Treatment Plan BSA from Recorded weight), INTRAVENOUS, ONCE, 1 dose, On Sat11/05/23 at 1100, CAUTION: vesicant -- EXP: 1100 11/06/23 Administer total dose over 15 minutes. Hazardous Chemotherapy Drug: Use appropriate PPE. Antineoplastic Vesicant. Given 11/05/2023 12:00 PM EDT 140.4 mg fosaprepitant 150 mg in NaCl 0.9% 250 mL (EMEND) 150 mg, INTRAVENOUS, Administer over 30 Minutes, ONCE, 1 dose, On Sat11/05/23 at 1100, Approximate Total Volume = 280 mL Mix in non-DEHP bag - Refrigerate New Bag/Syringe/Bottle 11/05/2023 11:18 AM EDT 150 mg palonosetron 0.25 mg injection (ALOXI) 0.25 mg, INTRAVENOUS, ONCE, 1 dose, On Sat11/05/23 at 1100, Flush IV line with NS prior to and following administration. Given 11/05/2023 10:53 AM EDT 0.25 mg FOR RECORDS PERTAINING TO PATIENTS WHO ARE OR HAVE BEEN ENROLLED IN A CHEMICAL DEPENDENCY/SUBSTANCEABUSE PROGRAM, SOME INFORMATION MAY BE OMITTED. This clinical summary was aggregated from multiple sources. Caution should be exercised in using it in the provision of clinical care. This summary normalizes information from multiple sources, and as a consequence, information in this document may materially change the coding, format and clinical context of patient data. In addition, data may be omitted in some cases. CLINICAL DECISIONS SHOULD BE BASED ON THE PRIMARY CLINICAL RECORDS. [employer] [facility] provides no warranty or guarantee of the accuracy or completeness of information in this document.
[2023-11-16 05:01] LABS: Bilirubin Urine NEGATIVE (NEGATIVE); Blood Urine NEGATIVE (NEGATIVE); Clarity Urine CLEAR (CLEAR); Color Urine DK. YELLOW (YELLOW); Glucose Urine UA NEGATIVE (NEGATIVE); Ketones Urine NEGATIVE (NEGATIVE); Leukocyte Esterase Urine TRACE (NEGATIVE); Nitrite Urine POSITIVE (NEGATIVE); Protein Urine 30 mg/dL (NEG/TRACE); Specific Gravity Urine >=1.030 (1.005-1.025); Urine Microscopic Indicated YES; pH Urine 5.5 (5.0-9.0)
--- NOTE | 2023-11-16 05:05 | XR_ITS ---
The [address] [address] Patient Name: MINAL CAPUTO MRN: [id number] date: 1955 Sex: F Assigned Patient Location: ER Current Patient Location: Accession/Order Number: [id number] Exam Date: 11/16/2023 05:25 Report Date: 11/16/2023 05:50 At the request of: ROBINSON WHITEHEAD Procedure: XR chest 1V EXAMINATION: XR chest 1V HISTORY: Fever, chemotherapy COMPARISON: 11/05/2023 FINDINGS: Stable cardiomegaly. Stable left basilar airspace opacity. No pulmonary edema. No pneumothorax. Right-sided port with tip in the superior vena cava. Posterior fusion hardware in the spine. XR/XR chest 1V IMPRESSION: Stable airspace opacities in the left lung base which could represent atelectasis and less likely pneumonia/pleural effusion. No new airspace infiltrates. Electronically authenticated by: COURTNEY PISANO Date: 11/16/2023 05:50
--- NOTE | 2023-11-16 05:06 | ED_ITS ---
HPI - Fever General Chief Complaint: Fever Stated Complaint: FEVER Time Seen by Provider: 11/16/23 04:58 Source: patient Mode of arrival: walk-in Limitations: no limitations History of Present Illness HPI Narrative: 68-year-old female presents for fever. She states she has had it for a few days and she thinks she may have a UTI. She has had some burning and dysuria. No cough or chest pain or abdominal pain. No vomiting. She is undergoing chemotherapy. Related Data Home Medications ?Medication ?Instructions ?Recorded ?Confirmed atorvastatin 10 mg tablet 10 mg PO DAILY 01/25/23 11/16/23 cholecalciferol (vitamin D3) 125 125 mcg PO DAILY 01/25/23 11/16/23 mcg (5,000 unit) capsule esomeprazole magnesium 20 mg 20 mg PO DAILY 01/25/23 11/05/23 capsule,delayed release (Nexium) metoprolol tartrate 50 mg tablet 50 mg PO BID 01/25/23 11/16/23 multivitamin 1 tab PO DAILY 01/25/23 11/16/23 potassium chloride 10 mEq 10 meq PO DAILY 01/25/23 11/16/23 capsule,extended release folic acid 1 mg tablet 11/06/23 methotrexate sodium 2.5 mg tablet mg 11/16/23 Previous Rx's ?Medication ?Instructions ?Recorded apixaban 5 mg tablet (Eliquis) 5 mg PO Q12H 30 days #72 tabs 11/08/23 furosemide 20 mg tablet 40 mg (2 x 20 mg) PO DAILY #0 tabs 11/08/23 losartan 50 mg tablet (Cozaar) 100 mg (2 x 50 mg) PO DAILY #0 tabs 11/08/23 spironolactone 25 mg tablet 25 mg PO DAILY #30 tabs 11/08/23 (Aldactone) Allergies Allergy/AdvReac Type Severity Reaction Status Date / Time fentanyl Allergy Intermediate Verified 11/16/23 04:53 Sulfa (Sulfonamide Allergy Intermediate Verified 11/16/23 04:53 Antibiotics) adhesive tape AdvReac Intermediate Verified 11/16/23 04:53 Review of Systems ROS Narrative A ten point review of systems is negative except as noted above. [facility] Medical History (Updated 11/16/23 @ 06:27 by Giuseppe Mccurdy MD) Pulmonary embolism and infarction ?I26.99 - Other pulmonary embolism without acute cor pulmonale (ICD-10) Breast cancer, right ?C50.911 - Malignant neoplasm of unspecified site of right female breast (ICD-10) Pulmonary embolism on right ?I26.99 - Other pulmonary embolism without acute cor pulmonale (ICD-10) Lymph node cancer ?C77.9 - Secondary and unspecified malignant neoplasm of lymph node, unspecified (ICD-10) Numbness and tingling of both lower extremities ?R20.0 - Anesthesia of skin (ICD-10) ?R20.2 - Paresthesia of skin (ICD-10) 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 - Postmastectomy lymphedema syndrome (ICD-10) Rheumatoid arthritis ?M06.9 - Rheumatoid arthritis, unspecified (ICD-10) Spinal stenosis ?M48.00 - Spinal stenosis, site unspecified (ICD-10) Kidney stones ?N20.0 - Calculus of kidney (ICD-10) Heart murmur ?R01.1 - Cardiac murmur, unspecified (ICD-10) Scoliosis ?M41.9 - Scoliosis, unspecified (ICD-10) Hyperlipemia ?E78.5 - Hyperlipidemia, unspecified (ICD-10) Obesity ?E66.9 - Obesity, unspecified (ICD-10) Borderline diabetes ?R73.03 - Prediabetes (ICD-10) Breast cancer ?C50.919 - Malignant neoplasm of unspecified site of unspecified female breast (ICD-10) Edema ?R60.9 - Edema, unspecified (ICD-10) GERD (gastroesophageal reflux disease) ?K21.9 - Gastro-esophageal reflux disease without esophagitis (ICD-10) COPD (chronic obstructive pulmonary disease) ?J44.9 - Chronic obstructive pulmonary disease, unspecified (ICD-10) HTN (hypertension) ?I10 - Essential (primary) hypertension (ICD-10) Surgical History (Updated 11/06/23 @ 01:32 by Sofia Godfrey RN) History of total left knee replacement ?Z96.652 - Presence of left artificial knee joint (ICD-10) History of total right knee replacement ?Z96.651 - Presence of right artificial knee joint (ICD-10) History of back surgery ?Z98.890 - Other specified postprocedural states (ICD-10) Family History (Updated 11/06/23 @ 01:37 by Sofia Godfrey RN) Father Family history of CHF (congestive heart failure) Family history of cancer Sister Family history of stroke Mother Family history of cancer Social History (Updated 11/05/23 @ 22:45 by Sofia Godfrey RN) Within the past year, how often did you have a drink containing alcohol: never Score interpretation: A score less than 3 is consistent with normal alcohol consumption. Smoking status: Never smoker Non-prescribed substance use: denies use Previous occupational history: none Known occupational exposures/hazards: No Highest level of school completed/degree received: some college, no degree Are you now , , , , never or living with a partner: don't know In a typical week, how many times do you talk on the telephone with family, friends, or neighbors: 3 or more times per week How often do you get together with friends or relatives: once per week How often do you attend jehovah's witness or yazdanism services: never Do you belong to any clubs or organizations such as jehovah's witness groups unions, [employer] or athletic groups, or school groups: no Total score: 1 Score interpretation: A score of less than or equal to 1 indicates the most socially isolated. Little interest or pleasure in doing things: not at all Feeling down, depressed, or hopeless: not at all Feel stressed/tense/nervous/anxious/difficulty sleeping: to some extent Life stressors: other Life stressor details: diagnosis with breast cancer Do you think of yourself as: decline to answer Gender Identity: decline to answer Exam Narrative Exam Narrative: Nurses note and vital signs reviewed and patient is not hypoxic. General: The patient appears well and in no apparent distress. Patient is resting comfortably on cart. Skin: Warm, dry, no pallor noted. There is no rash noted. Port site in her right upper chest has no erythema. Head: Normocephalic, atraumatic Eye: Normal conjunctiva, no drainage Ears, Nose, Mouth, and Throat: oral mucosa is moist. Nares patent. Mouth without vesicles. Cardiovascular: Regular Rate and Rhythm Respiratory: Patient is in no distress, no accessory muscle use, lungs are clear to auscultation, no wheezing, rales or rhonchi Back: non-tender GI: Obese soft and nontender Musculoskeletal: The patient has no evidence of calf tenderness, no pitting edema, symmetrical pulses noted bilaterally Neurological: A&O, normal speech Psychiatric: Cooperative Constitutional Vital Signs, click to edit/add: Last Vital Signs Temp 98.7 F 11/16/23 04:44 Pulse 87 11/16/23 04:44 Resp 20 11/16/23 04:44 BP 142/61 H 11/16/23 04:44 Pulse Ox 99 11/16/23 04:44 O2 Del Method Room Air 11/16/23 04:44 Course Vital Signs Vital signs: Vital Signs Temperature 98.7 F 11/16/23 04:44 Pulse Rate 87 11/16/23 04:44 Respiratory Rate 20 11/16/23 04:44 Blood Pressure 142/61 H 11/16/23 04:44 Pulse Oximetry 99 11/16/23 04:44 Oxygen Delivery Method Room Air 11/16/23 04:44 Temperature 98.7 F 11/16/23 04:44 Pulse Rate 87 11/16/23 04:44 Respiratory Rate 20 11/16/23 04:44 Blood Pressure 142/61 H 11/16/23 04:44 Pulse Oximetry 99 11/16/23 04:44 Oxygen Delivery Method Room Air 11/16/23 04:44 MDM - Fever MDM Narrative Medical decision making narrative: .The patient has neutropenic fever and what appears to be a urinary tract infection. WBC is 1.0 with an ANC of 160. Blood cultures were obtained as well as a urine culture. I spoke to Dr. Melendrez on-call for her oncologist who recommends Zosyn. She is hemodynamically stable and is being admitted. Treatment diagnosis and disposition were discussed with the patient. Differential Diagnosis Differential diagnosis: Likely community acquired pneumonia, pyelonephritis, viral infection, sepsis, influenza and other (COVID, pneumonia, urinary tract infection) Lab Data Attestation: I reviewed the patient's lab results. Labs: Lab Results 11/16/23 11/16/23 Range/Units 04:50 05:20 WBC 1.0 L* (4.0-11.0) 10^3/uL RBC 3.18 L (4.20-5.40) 10^6/uL Hgb 9.9 L (12.0-16.0) g/dL Hct 30.3 L (36.0-48.0) % MCV 95.3 (81.0-99.0) fL MCH 31.1 (26.7-34.0) pg MCHC 32.7 (29.9-35.2) g/dL RDW 13.9 (11.0-15.0) % Plt Count 183 (150-450) 10^3/uL MPV 10.5 (9.5-13.5) fL Seg Neuts % (Manual) 16.0 Band Neutrophils % 4.0 (0-5) % Lymphocytes % (Manual) 58.0 (20.5-60.0) % Atypical Lymphs % (Man) 4.0 % Monocytes % (Manual) 6.0 (1.7-12.0) % Eosinophils % (Manual) 4.0 (0.9-7.0) % Basophils % (Manual) 6.0 H (0.2-2.0) % Metamyelocytes % 2.0 Neutrophils # (Manual) 0.16 L (1.4-6.5) 10^3/uL Band Neutrophils # 0.0 (0.0-0.3) 10^3/uL Lymphocytes # (Manual) 0.58 L (1.20-3.80) 10^3/uL Abs Atypical Lymphs Man 0.04 Monocytes # (Manual) 0.06 L (0.30-0.80) 10^3/uL Eosinophils # (Manual) 0.04 (0.00-0.70) 10^3/uL Basophils # (Manual) 0.06 (0.00-0.10) 10^3/uL Metamyelocytes # 0.02 Sodium 136 (136-145) mmol/L Potassium 3.6 (3.5-5.1) mmol/L Chloride 101 (98-107) mmol/L Carbon Dioxide 25.6 (21.0-32.0) mmol/L Anion Gap 13.0 BUN 10.0 (7.0-18.0) mg/dL Creatinine 0.93 (0.55-1.02) mg/dL Est GFR ( Amer) >60 (>=60) Est GFR (Non-Af Amer) 60 (>=60) BUN/Creatinine Ratio 10.8 Glucose 136 H (74-106) mg/dL Calcium 8.3 L (8.5-10.1) mg/dL Urine Color Dk. yellow (YELLOW) Urine Clarity Clear (CLEAR) Urine pH 5.5 (5.0-9.0) Ur Specific Campbell >=1.030 A (1.005-1.025) Urine Protein 30 A (NEG/TRACE) mg/dL Urine Glucose (UA) Negative (NEGATIVE) mg/dL Urine Ketones Negative (NEGATIVE) mg/dL Urine Occult Blood Negative (NEGATIVE) Urine Nitrite Positive A (NEGATIVE) Urine Bilirubin Negative (NEGATIVE) Urine Urobilinogen 1.0 (0.2-1.0) EU/dL Ur Leukocyte Esterase Trace A (NEGATIVE) Urine RBC 0-2 (0-2) #/HPF Urine WBC 10-20 A (NONE SEEN) #/HPF Ur Squamous Epith Cells Few A (NONE/RARE) #/LPF Urine Crystals Seen A (None Seen) #/HPF Amorphous Sediment Few Urine Bacteria Moderate A (NONE SEEN) #/HPF Urine Casts None seen (NONE SEEN) #/LPF Urine Mucus Moderate A (NONE SEEN) Urine Yeast Seen A (NONE SEEN) Ur Culture Indicated? Yes Influenza Type A Ag Negative Influenza Type B Ag Negative SARS-CoV-2 Ag (CV2AG) Negative (NEGATIVE) Imaging Data Chest x-ray: Radiologist's impression: ITS Impressions Chest X-Ray 11/16/23 05:05 IMPRESSION: Stable airspace opacities in the left lung base which could represent atelectasis and less likely pneumonia/pleural effusion. No new airspace infiltrates. Electronically authenticated by: COURTNEY PISANO Date: 11/16/2023 05:50 Discharge Plan Discharge Chief Complaint: Fever Clinical Impression: Urinary tract infection, Neutropenic fever Patient Disposition: Admitted as Observation Time of Disposition Decision: 06:27 Condition: Good
[2023-11-16 05:10] LABS: Amorphous Sediment Urine FEW; Bacteria Urine MODERATE #/HPF (NONE SEEN); Cast Seen? NONE SEEN #/LPF (NONE SEEN); Crystals Seen? Seen #/HPF (None Seen); Mucus Urine MODERATE (NONE SEEN); RBC Urine 0-2 #/HPF (0-2); Squamous Epithelial Cell Urine FEW #/LPF (NONE/RARE)
[2023-11-16 05:11] LABS: Urine Culture Indicated YES
[2023-11-16 05:42] LABS: Hematocrit 30.3 % (36.0-48.0); Hemoglobin 9.9 g/dL (12.0-16.0); Mean Corpuscular HGB Conc 32.7 g/dL (29.9-35.2); Mean Corpuscular Hemoglobin 31.1 pg (26.7-34.0); Mean Corpuscular Volume 95.3 fL (81.0-99.0); Mean Platelet Volume 10.5 fL (9.5-13.5); Platelet Count 183 10^3/uL (150-450); Red Blood Count 3.18 10^6/uL (4.20-5.40); Red Cell Distribution Width 13.9 % (11.0-15.0)
[2023-11-16 05:48] LABS: BUN Creatinine Ratio 10.8; Calcium 8.3 mg/dL (8.5-10.1); Carbon Dioxide 25.6 mmol/L (21.0-32.0); Chloride 101 mmol/L (98-107); Estimated GFR (African America >60 (>=60); Estimated GFR (Non-African Ame 60 (>=60); Glucose 136 mg/dL (74-106); Potassium 3.6 mmol/L (3.5-5.1); Sodium 136 mmol/L (136-145)
[2023-11-16 05:51] LABS: Influenza Virus A Antigen Negative; Influenza Virus B Antigen Negative; Internal Control Within Normal Limits; SARS-CoV-2 Ag NEGATIVE (NEGATIVE)
[2023-11-16 06:08] LABS: Basophils Abs Manual 0.06 10^3/uL (0.00-0.10); Eosinophils Absolute Manual 0.04 10^3/uL (0.00-0.70); Monocytes Absolute Manual 0.06 10^3/uL (0.30-0.80); Segmented Neut Absolute Manual 0.16 10^3/uL (1.4-6.5)
[2023-11-16 06:09] LABS: Atypical Lymphocytes Abs Man 0.04; Lymphocytes Absolute Manual 0.58 10^3/uL (1.20-3.80); Metamyelocytes Absolute Manual 0.02
--- NOTE | 2023-11-16 06:25 | ECG_ITS ---
[facility] Test Date: 2023-11-16 Pat Name: MINAL CAPUTO Department: Room: [facility] Gender: Female Manager Export: : 1955 Requested By: [id number] Order Number: [id number] Reading MD: MARIO NICOLE Measurements Intervals [place] Rate: 76 P: 129 KS: 200 QRS: 139 QRSD: 74 T: 127 QT: 380 QTc: 411 Interpretive Statements Sinus rhythm 3534 Lateral myocardial infarction, age undetermined 5120 Possible right ventricular hypertrophy 0101 Possible arm leads reversed, check lead requested 9150 abnormal ECG Electronically Signed On 11-17-2023 7:26:47 EDT by MARIO NICOLE
[2023-11-16] MEDS: PIPERACILLIN SODIUM/TAZOBACTAM 3.375 GM in 0.9 % SODIUM CHLORIDE 50 ML IV ×3 (06:48→21:32)
[2023-11-16 06:49] LABS: Lactate/Lactic Acid 2.5 mmol/L (0.4-2.0)
[2023-11-16 07:01] LABS: PROCALCITONIN <0.05 ng/mL (0.00-0.50)
--- NOTE | 2023-11-16 07:25 | P.HP_ITS ---
HPI H&P: HPI History of Present Illness Chief complaint: FEVER Neutropenic Fever UTI Narrative: patient is a 68-year-old female with past medical history of right breast cancer status post mastectomy and lymph node dissection and chemotherapy. Last chemotherapy was on 11/05/23. Since that time patient has been treated for a right pulmonary embolus and was placed on Eliquis. Patient notes that she started feeling bad again several days ago with some fevers but also some urina ry symptoms.. She presented to the Emergency Room last night with neutropenia with a white blood cell count of 1.0 and a positive urinalysis. Patient was admitted for neutropenic fever and urinary tract infection. Patient's viral cultures have been negative. The case was also discussed with Dr. Melendrez who is on-call for her oncologist. He recommended placing patient on Zosyn, and starting Neupogen. And fortunately we do not carry that medication here so it has to come from an outside facility and she will not receive her 1st dose until later this evening. He instructed to continue this daily until white blood cell count is greater than three. Patients temperature 102.4 sepsis protocol was initiated. Due to patient's history of congestive heart failure fluid bolus was not obtained but just started on a rate as I did not want to cause a acute congestive heart failure exacerbation. Lactate 2.1, another set of blood cultures obtained. Full viral panel pending. Patient just notes chills, no other issues or complaints other than she wants to go home. Opioid HPI Opioid Management Most Recent Opioid Data: Last Pain Assessment 11/16/23 15:50 Last MAR Pain Assessment 11/16/23 14:45 Last ORT Total Score 0 11/16/23 10:35 Last ORT Risk Category Low Risk 11/16/23 10:35 Review of Systems ROS Narrative ROS: a complete review of systems were reviewed with patient and are positive as below or listed in History of Chief Complaint. General:fever, chills, night sweats Head: no headache, trauma, visual changes, nausea or vomiting Skin: no reported rashes, itching or sores Eyes: no blurriness of vision Ears: no reported hearing loss, vertigo, earache, or tinnitus Throat: no sore throat, hoarseness, swelling of neck, or tongue pain Heart: no chest pain Lungs: no shortness of breath or cough GI: no diarrhea or vomiting/nausea Urinary: urinary urgency, frequency no pain Neuro: no numbness or tingling HEM: no bleeding issues or bruising ENDO: no thyroid problems Psych: no anxiety or depression PFSH PFSH Medical History (Updated 11/16/23 @ 16:23 by Suzanne Diez DO) Pulmonary embolism and infarction ?I26.99 - Other pulmonary embolism without acute cor pulmonale (ICD-10) Breast cancer, right ?C50.911 - Malignant neoplasm of unspecified site of right female breast (ICD-10) Pulmonary embolism on right ?I26.99 - Other pulmonary embolism without acute cor pulmonale (ICD-10) Lymph node cancer ?C77.9 - Secondary and unspecified malignant neoplasm of lymph node, unspecified (ICD-10) Numbness and tingling of both lower extremities ?R20.0 - Anesthesia of skin (ICD-10) ?R20.2 - Paresthesia of skin (ICD-10) 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 - Postmastectomy lymphedema syndrome (ICD-10) Rheumatoid arthritis ?M06.9 - Rheumatoid arthritis, unspecified (ICD-10) Spinal stenosis ?M48.00 - Spinal stenosis, site unspecified (ICD-10) Kidney stones ?N20.0 - Calculus of kidney (ICD-10) Heart murmur ?R01.1 - Cardiac murmur, unspecified (ICD-10) Scoliosis ?M41.9 - Scoliosis, unspecified (ICD-10) Hyperlipemia ?E78.5 - Hyperlipidemia, unspecified (ICD-10) Obesity ?E66.9 - Obesity, unspecified (ICD-10) Borderline diabetes ?R73.03 - Prediabetes (ICD-10) Breast cancer ?C50.919 - Malignant neoplasm of unspecified site of unspecified female breast (ICD-10) Edema ?R60.9 - Edema, unspecified (ICD-10) GERD (gastroesophageal reflux disease) ?K21.9 - Gastro-esophageal reflux disease without esophagitis (ICD-10) COPD (chronic obstructive pulmonary disease) ?J44.9 - Chronic obstructive pulmonary disease, unspecified (ICD-10) HTN (hypertension) ?I10 - Essential (primary) hypertension (ICD-10) Surgical History History of total left knee replacement ?Z96.652 - Presence of left artificial knee joint (ICD-10) History of total right knee replacement ?Z96.651 - Presence of right artificial knee joint (ICD-10) History of back surgery ?Z98.890 - Other specified postprocedural states (ICD-10) Family History Father Family history of CHF (congestive heart failure) Family history of cancer Family history of hypertension Sister Family history of stroke Mother Family history of cancer Family history of hypertension Social History Within the past year, how often did you have a drink containing alcohol: never Within the past year, how many standard drinks containing alcohol did you have on a typical day: 1 or 2 Within the past year, how often did you have six or more drinks on one occasion: never Total score: 0 Score interpretation: A score less than 3 is consistent with normal alcohol consumption. Smoking status: Never smoker Second hand tobacco smoke exposure: No Non-prescribed substance use: denies use Previous occupational history: none Known occupational exposures/hazards: No Highest level of school completed/degree received: some college, no degree Do you want help with school or training: No Are you now , , , , never or living with a partner: don't know In a typical week, how many times do you talk on the telephone with family, friends, or neighbors: 3 or more times per week How often do you get together with friends or relatives: once per week How often do you attend presybeterian or jainism services: never Do you belong to any clubs or organizations such as presybeterian groups unions, fraternal or athletic groups, or school groups: no Total score: 1 Score interpretation: A score of less than or equal to 1 indicates the most socially isolated. Little interest or pleasure in doing things: not at all Feeling down, depressed, or hopeless: not at all Feel stressed/tense/nervous/anxious/difficulty sleeping: to some extent Life stressors: other Life stressor details: diagnosis with breast cancer Due to disability, difficulty making decisions: No Do you think of yourself as: decline to answer Gender Identity: decline to answer Meds Home Medications and Allergies Home Medications ?Medication ?Instructions ?Recorded ?Confirmed ?Type cholecalciferol (vitamin D3) 125 125 mcg PO DAILY 01/25/23 11/16/23 History mcg (5,000 unit) capsule metoprolol tartrate 50 mg tablet 50 mg PO BID 01/25/23 11/16/23 History multivitamin 1 tab PO DAILY 01/25/23 11/16/23 History potassium chloride 10 mEq 10 meq PO DAILY 01/25/23 11/16/23 History capsule,extended release folic acid 1 mg tablet 1 mg PO .QD 11/06/23 11/16/23 History apixaban 5 mg tablet (Eliquis) 5 mg PO Q12H 30 days #72 tabs 11/08/23 11/16/23 Rx furosemide 20 mg tablet 40 mg (2 x 20 mg) PO DAILY #0 tabs 11/08/23 11/16/23 Rx spironolactone 25 mg tablet 25 mg PO DAILY #30 tabs 11/08/23 11/16/23 Rx (Aldactone) atorvastatin 40 mg tablet 40 mg PO .QHS 11/16/23 11/16/23 History losartan 50 mg tablet (Cozaar) 50 mg PO DAILY 11/16/23 11/16/23 History methotrexate sodium 2.5 mg tablet 15 mg PO .Saturday11/16/23 11/16/23 History Allergies Allergy/AdvReac Type Severity Reaction Status Date / Time fentanyl Allergy Intermediate Verified 11/16/23 04:53 Sulfa (Sulfonamide Allergy Intermediate Verified 11/16/23 04:53 Antibiotics) adhesive tape AdvReac Intermediate Verified 11/16/23 04:53 Exam Narrative Exam Narrative: General: Patient is alert, and oriented to person, place and time with normal affect, proper hygiene Head: atraumatic, acephalic Eyes: PERRLA, no nystagmus present, conjunctiva clear, no scleral icterus Ears: normal gross auditory acuity Heart: Normal rate and rhythm, no murmurs/rubs/gallops Lungs: no audible wheezes, crackles and normal breath sounds all lung harrell Musculoskeletal: no swelling bilateral lower extremities Neuro: CN II-X grossly intact Constitutional Vital Signs, click to edit/add: Last Vital Signs Temp 99.6 F 11/16/23 06:56 Pulse 78 11/16/23 06:50 Resp 24 11/16/23 06:50 BP 142/61 H 11/16/23 04:44 Pulse Ox 99 11/16/23 04:44 O2 Del Method Room Air 11/16/23 04:44 Results Labs Labs: Short CBC 11/16/23 Range/Units 05:20 WBC 1.0 L* (4.0-11.0) 10^3/uL Hgb 9.9 L (12.0-16.0) g/dL Hct 30.3 L (36.0-48.0) % Plt Count 183 (150-450) 10^3/uL BMP 11/16/23 05:20 Sodium 136 Potassium 3.6 Chloride 101 Carbon Dioxide 25.6 BUN 10.0 Creatinine 0.93 Glucose 136 H Calcium 8.3 L Urine 11/16/23 Range/Units 04:50 Urine Color Dk. yellow (YELLOW) Urine Clarity Clear (CLEAR) Urine pH 5.5 (5.0-9.0) Ur Specific [place] >=1.030 A (1.005-1.025) Urine Protein 30 A (NEG/TRACE) mg/dL Urine Glucose (UA) Negative (NEGATIVE) mg/dL Assessment and Plan Assessment and Plan (1) Neutropenic fever: Assessment and Plan: start Neupogen daily until WBC's >3, patient placed in neutropenic cautions. Continue Zosyn and added vancomycin. (2) Sepsis: Assessment and Plan: temp of 102, elevated lactate, broad-spectrum antibiotics initiated, started on IV fluids, not given fluid bolus secondary to history of congestive heart f ailure on recent echocardiogram. Lim cultures pending. acute Respiratory panel pending (3) Urinary tract infection: Assessment and Plan: awaiting urine culture Qualifiers: Urinary tract infection type: acute cystitis Hematuria presence: without hematuria Qualified Code(s): N30.00 - Acute cystitis without hematuria (4) Pulmonary embolism and infarction: Assessment and Plan: continue eliquis (5) Breast cancer, right: Assessment and Plan: has a port, currently undergoing chemotherapy Qualifiers: Breast location: unspecified site of breast Estrogen receptor status: unspecified Patient sex: female Qualified Code(s): C50.911 - Malignant neoplasm of unspecified site of right female breast (6) Hyperlipemia: Assessment and Plan: continue atorvastatin Qualifiers: Hyperlipidemia type: unspecified Qualified Code(s): E78.5 - Hyperlipidemia, unspecified (7) Obesity: Qualifiers: Obesity type: due to excess calories Obesity classification: unspecified obesity classification Serious obesity comorbidity presence: without serious comorbidity Qualified Code(s): E66.09 - Other obesity due to excess calories (8) GERD (gastroesophageal reflux disease): Assessment and Plan: continue home medications Qualifiers: Esophagitis presence: without esophagitis Qualified Code(s): K21.9 - Gastro-esophageal reflux disease without esophagitis (9) HTN (hypertension): Assessment and Plan: continue losartan, metoprolol, aldactone Qualifiers: Hypertension type: primary hypertension Qualified Code(s): I10 - Essential (primary) hypertension Plan patient is a full code Patient is in inpatient status, and is expected to cross 2 midnights for medically necessary hospital care mercedes gilbert
--- OUTSIDE RECORDS SUMMARY | 2023-11-16 08:01 | XMS_ITS | CCD ---
Author Organization [facility] Care Team Providers Care Line Runner Name Role Phone DONTE MOFFETT Referring Unavailable DONTE MOFFETT Admitting Unavailable DONTE MOFFETT Attending Unavailable ADY ARAGON Consulting Unavailable DONTE MOFFETT Referring Unavailable DONTE MOFFETT Referring Unavailable Rita Amanda Primary Care Provider Gilma DO, Janet Flaquita Unavailable Debbie Ramirez Unavailable Rita Amanda Primary Care Provider Gilma DO, Janet Flaquita Unavailable HENRIK Perez Attending Provider LENA Benson Referring Provider [phone] Gilma DO Janet G Primary Care Provider Dayanna Schumacher Unavailable Gilma, DO Janet G Primary Care Provider DO Kaylene Lilly Attending Provider DEEPA Schumacher Attending Provider [phone] Rita Amanda Primary Care Provider [phone] Gilma DO, Janet Flaquita Unavailable NO FAMILY, PHYSICIAN Primary Care Provider Unava ilable Gilma DO Janet G Primary Care Provider DO Nikko Astorga Attending Provider Karen Parrish Unavailable GABBY GREY Consulting Unavailable EMMANUEL ., DR GERBER Admitting Unavailable MISC, DR PENALOZA Primary Care Unavailable EMMANUEL ., DR GERBER Attending Unavailable LUIS ., SHANKAR Consulting Unavailable LOUIE, TAWANA Consulting Unavailable RAM, YARI Consulting Unavailable SOLARES, RAKESH Consulting Unavailable SAID, CHRISTINE Consulting Unavailable Nefcy, Cristina Consulting Unavailable CUELLAR ., DR DONTE Patel Consulting Unavailable MISC, DR PENALOZA Primary Care Unavailable CUELLAR ., DR DONTE Patel Admitting Unavailable CUELLAR ., DR DONTE Patel Attending Unavailable PETERECK, DR RICCO Anthony Consulting Unavailkathie SON, DONALDO Consulting Unavailable LAWRENCE LOPEZ Consulting Unavailable GilmaJanet saha DO Unavailable DO Janet Dillard Primary Care Provider DO Nikko Astorga Attending Provider [phone] Janet Dillard Primary Care Unavailable Kaylene Lilly Admitting Unavailable Kaylene Lilly Attending Unavailable Dayanna Schumacher Admitting Unavailable Dayanna Schumacher Attending Unavailable NO FAMILY, PHYSICIAN Primary Care Unavailable Nikko Astorga Admitting Unavailable Nikko Astorga Attending Unavailable Janet Dillard Primary Care Unavailable Nikko Astorga Admitting Unavailable Nikko Astorga Attending Unavailable Janet Dillard Primary Care Unavailable Sunny Jenkins MD Primary Care Provider BYRON MOORE Referring Unavailable VIRGINIASUNNY Johnson Primary Care Unavailable GABBY URBINA Attending Unavailable SUNNY JENKINS Primary Care Unavailable KISHAN ASIF Referring Unavailable Sunny Jenkins MD Primary Care Provider Pastor ESPANA, Yvonne Anthony Unavailable Mitch Garcia MD Unavailable [phone] Cathy Templeton PA-C Unavailable [phone] Deepika Krueger Unavailable Unavailable PROVIDER, UNKNOWN Admitting Unavailable SUNNY JENKINS Primary Care Unavailable PROVIDER, UNKNOWN Attending Unavailable RITA AMANDA Primary Care Unavailabl amanda TRUJILLO, NELL Referring Unavailable YOAN RIVAS Attending Unavailable Nona Cannon RD Unavailable BRIANNA RENNER Referring Unavailable VIRGINIA, MUHAMID M [...] Unavailable VIRGINIA, MUHAMID M Primary Care Unavailable KARUPPASAMY, KARUNAKARAVEL Referring Unava ilable VIRGINIA, MUHAMID M Primary Care Unavailable KARAMLOU, MITCH Attending Unavailable VIRGINIA, MUHAMID M Primary [...] RITA CHA Primary Care Unavailabl e ALHILLI, HEATEHR Referring Unavailable TREASURE, RITA CHA Primary Care Unavailabl e ALHILLI, HEATHER Referring Unavailable TREASURE, RITA CHA Primary Care Unavailabl e PRINCESS BEGUM JR Referring Unavailable VIRGINIA, MUHAMID M Primary Care Unavailable PHILIP YANGKA Attending Unavailable VIRGINIA, MUHAMID M Primary Care Unavailable KARAMLOU, MITCH Attending Unavailable PHILIP YANGKA Referring Unavailable VIRGINIA, MUHAMID M Primary Care Unavailable TREASURE, RITA CHA Primary Care Unavailabl e MENDOZA YANG Attending Unavailable TREASURE, RITA CHA Primary Care Unavailabl e EV CAI Attending Unavailable TREASURE, RITA CHA Primary Care Unavailabl e JOHN DC Referring Unavailable JOHN DC Attending Unavailable VIRGINIA, MUHAMID M Primary Care Unavailable YOKASTA CATHY M Referring Unavailable NONA CANNON Attending Unavailabl e VIRGINIA, MUHAMID M Primary Care Unavailable VIRGINIA, MUHAMID M Primary Care Unavailable MITCH GARCIA Referring Unavailable VIRGINIA, MUHAMID M Primary Care Unavailable DANTE REHMAN Attending Unavailable ALHILLI, HEATHER Referring Unavailable VIRGINIA, MUHAMID M Primary Care Unavailable RITA AMANDA Primary Care Unavailabl e ALHILLI, HEATHER Attending Unavailable ALHILLI, HEATHER Admitting Unavailable TREASURERITA CHA Primary Care Unavailabl e ALHILLI, HEATHER Referring Unavailable TREASURERITA CHA Primary Care Unavailabl e ALHILLI, HEATHER Attending Unavailable TREASURERITA CORDERO CHA Primary Care Unavailabl e ALHILLI, HEATHER Referring Unavailable DANTE REHMAN Attending Unavailable TREASURERITA CHA Primary Care Unavailabl e ALHILLI, HEATHER Referring Unavailable DANTE REHMAN Attending Unavailable VIRGINIA, MUHAMID M Primary Care Unavailable GABBY URBINA Attending Unavailable VIRGINIA, MUHAMID M Primary Care Unavailable BRIANNA RENNER Attending Unavailable VIRGINIA, MUHAMID M Primary Care Unavailable LEO GERARD Attending Unavailable VIRGINIA, MUHAMID M Referring Unavailable VIRGINIA, MUHAMID M Primary Care Unavailable LEO GERARD Attending Unavailable VIRGINIA, MUHAMID M Referring Unavailable VIRGINIA, MUHAMID M Primary Care Unavailable Unavailable Unavailable Unavailable Allergies Allergy Classification Reported Allergen(s) Allergy Type Date of Onset Reaction(s) Facility (20 sources) fentaNYL; Translations: [FENTANYL] Drug Allergy 04-01-20 18 Other: See Comments, Intolerance [facility] Repository (1 source) Penicillins; Translations: [PENICILLINS] Propensity to adverse reactions to drug (disorder) 03-08-[address] [facility] Repository (20 sources) Sulfonamides (Antibiotic); Translations: [SULFA (SULFONAMIDE ANTIBIOTICS)] Propensity to adverse reactions to drug (disorder) 03-08-20 07 Unknown, Rash [facility] Repository (3 sources) OTHER; Translations: [OTHER] Propensity to adverse reactions (disorder) 05-06-20 Other [place] Repository (20 sources) ADHESIVE BANDAGES [Other] Propensity to adverse reactions 05-06-20 [facility] Work Phone: (4 sources) Sulfacetamide Drug Allergy rash iMusician Other (1 source) Adhesive bandage Drug allergy (disorder) 12-04-19 [facility] Repository (1 source) Sulfonamides (Antibiotic) Drug allergy (disorder) 12-04-19 [facility] Repository (11 sources) Adhesive agent; Translations: [adhesive] Allergy to substance 02-29-20 Other (See Comments) [facility] (20 sources) Adhesive Tape-Silicones; Translations: [ADHESIVE TAPE-SILICONES] Drug Intolerance 07-29-20 [facility] Work Phone: Medications Current Medications Medication Drug [...] hrs (includes Tylenol/Acetaminophen in other medications e.g. [place]). [id number] 200 actuat albuterol 0.09 mg/actuat metered dose [...] Start: 11-05-2023 take 2 tablets by [facility] twice daily, then take 1 tablet by [...] TREAT 30D START) 5 mg (74 tabs) Take 2 [...] on above: Take 1 tablet by eamon twice daily for 28 days. atorvastatin 40 mg oral tablet (20 sources) HMG-CoA Reductase Inhibitor Start: 05-14-20 End: 11-01-19 take 1 tablet by mouth in the [...] Comment on above: Take 1 tablet by [facility] two times a day for 7 days. [...] Comment on above: Take 1 tablet by [facility] two times a day with meals for 2 days. Day 1 and 2 after chemo only dextromethorphan hydrobromide 1.5 mg/ml / pyrilamine maleate 1.5 mg/ml oral solution (2 sources) Uncompetitive X-pvscrc-O-aspartate Receptor Antagonist, Sigma-1 Agonist Start: 06-17-2022 [place] DM 7.5-7.5 MG/5ML 10 ml Orally every 6-8 hours as needed for 8 days May, Active Start: 04-25-2019 [place] DM 7.5- 7.5 MG/5ML 10 ml Orally every 6-8 hours as needed for 8 days Mar, Active doxycycline hyclate 100 mg oral tablet (2 sources) Tetracycline-class Drug Start: 12-07-2022 take 1 tablet by mouth every twelve hours Doxycycline Hyclate 100 MG 1 tablet Orally Twice a day for 10 day(s) Nov, Active Start: 04-25-2019 take 1 capsule by mo [facility] every twelve hours Doxycycline Monohydrate 100 MG [...] Start: 07-22-2023 take 6 tablets by mo alh every week methotrexate 2.5 mg chemo tablet TAKE 6 TABLETS BY MOUTH ONCE WEEKLY 72 tablet 1 07/22/2023 Active Start: 07-22-2023 take 1 tablet by eamon six times weekly methotrexate 2.5 mg tablet [...] (1 source) Proton Pump Inhibitor Start: 03-31-20 End: 12-09-19 take 1 tablet [...] 10 mL injection (DEFINITY) polyethylene glycol 3350 337999 mg / potassium chloride 2970 mg / sodium bicarbonate 6740 mg / sodium chloride 5860 mg / sodium sulfate 61958 mg powder for oral solution (1 source) [...] 1 tablet [facility] potassium chloride (K-DUR,KLOR-CON) 10 MEQ CR tablet Take 1 tablet (10 mEq total) by mouth in the morning and 1 tablet (10 mEq total) before bedtime. 0 Active take 1 tablet by mouth twice gayathri ly potassium chloride (K-TAB) 10 mEq tablet Take 10 mEq by mouth twice daily. 0 Active take 1 capsule by [facility] every twenty-four hours Potassium Chloride ER [...] UT) (3 sources) take 1 tablet by eamon once daily Vitamin D3 125 MCG (5000 UT) 1 tablet Orally Once a day Active Vitamin D3 51975 UNIT (1 source) Vitamin D3 67178 UNIT 1 tablet Orally Active Completed/Discontinued Medications [...] Active Start: 07-30-2023 take 1 tablet by eamon th every eight hours as needed ondansetron (ZOFRAN) 4 mg tablet Take 1 tablet by mouth every 8 hours as needed for nausea/vomiting. 6 tablet 0 07/30/2023 Active Comment on above: Take 1 tablet by eamon th every 8 hours as needed for nausea/vomiting. oxyCODONE hydrochloride 5 mg oral tablet (2 sources) Opioid Agonist Start: End: take 1 tablet by mouth every [...] on above: Take 3 tablets by mo [facility] once daily for 4 days, THEN 2 tablets once daily for 4 days, THEN 1 tablet once daily for 4 days, THEN 0.5 tablets once daily for 4 days. prochlorperazine 10 mg oral tablet (20 sources) Phenothiazine Start: take 1 tablet by mouth every six hours as needed prochlorperazine (COMPAZINE) 10 mg tablet Take 1 tablet by mouth every 6 hours as needed. 100 tablet 2 09/23/2023 Active Comment on above: Take 1 tablet by eamon every 6 hours as needed. 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] Onset: 12-13-2022 Episodic Other [...] [Morbid obesity with BMI of 50.0-59.9, adult ([facility])] Onset: 01-31-2023 Chronic Other upper respiratory disease [...] OF COVID-19] Onset: 12-13-2022 Unclassified (1 source) transistional care Onset: 11-14-2023 Unclassified (1 source) Sinus Problem Onset: 10-09-2023 [...] [Other abnormal glucose] Onset: 04-24-2023 04-24-2023 Episodic Heart valve disorders (20 sources) Heart [...] Test Name Value Interpretation Reference Range Facility [facility] 11-11-2023 [facility] Normal [facility] CBC W Auto Differential pane l (Bld)on 11-05-2023 Anisocytosis Ql (Bld) Present Normal [facility] Comment on above: Order Comment: Speci men Type: BLOOD SPECIMENOrdering Facility: [facility] Address: [address] [place] [address] Performed By: #### 5 7021-8 ####[facility] LABCLIA [id number] [place], [place] [address]GMKC[facility] LABCLIA [id number] [place] [address] [place] Basophils (Bld) [#/Vol] 0.00 10*3/uL Normal <0.11 [facility] Comment on above: Order Comment: Speci men Type: BLOOD SPECIMENOrdering Facility: [facility] Address: [address] [place] [address] Performed By: #### 5 7021-8 ####[facility] LABCLIA [id number] [address] LABCLIA [id number] [place] [address] [place] Basophils/100 WBC (Bld) 0.0 % Normal [facility] Comment on above: Order Comment: Speci men Type: BLOOD SPECIMENOrdering Facility: [facility] Address: [address] [place] [address] Performed By: #### 5 7021-8 ####[facility] LABCLIA [id number] [address] LABCLIA [id number] [place] [address] [place] Differential cell count method Nom (Bld) Manual Normal [facility] Comment on above: Order Comment: Speci men Type: BLOOD SPECIMENOrdering Facility: [facility] Address: [address] [place] [address] Performed By: #### 5 7021-8 ####[facility] LABCLIA [id number] [address] LABCLIA [id number] [place] [address] [place] Eosinophils (Bld) [#/Vol] 0.06 10*3/uL Normal <0.46 [facility] Comment on above: Order Comment: Speci men Type: BLOOD SPECIMENOrdering Facility: [facility] Address: [address] [place] [address] Performed By: #### 5 7021-8 ####[facility] LABCLIA [id number] [address] LABCLIA [id number] [place] [address] [place] Eosinophils/100 WBC (Bld) 0.9 % Normal [facility] Comment on above: Order Comment: Speci men Type: BLOOD SPECIMENOrdering Facility: [facility] Address: [address] [place] [address] Performed By: #### 5 7021-8 ####[facility] LABCLIA [id number] [address] LABCLIA [id number] [place] [address] [place] Erythrocyte distribution width (RBC) [Ratio] 14.6 % Normal 11.5-15.0 [facility] Comment on above: Order Comment: Speci men Type: BLOOD SPECIMENOrdering Facility: [facility] Address: [address] [place] [address] Performed By: #### 5 7021-8 ####[facility] LABCLIA [id number] [address] LABCLIA [id number] [place] [address] [place] Giant platelets LM Ql (Bld) Occasional Normal [facility] Comment on above: Order Comment: Speci men Type: BLOOD SPECIMENOrdering Facility: [facility] Address: [address] [place] [address] Performed By: #### 5 7021-8 ####[facility] LABCLIA [id number] [address] LABCLIA [id number] [place] [address] [place] Hematocrit (Bld) [Volume fraction] 36.1 % Normal 36.0-46.0 [facility] Comment on above: Order Comment: Speci men Type: BLOOD SPECIMENOrdering Facility: [facility] Address: [address] [place] [address] Performed By: #### 5 7021-8 ####[facility] LABCLIA [id number] [address] LABCLIA [id number] [place] [address] [place] Hemoglobin (Bld) [Mass/Vol] 11.9 g/dL Normal 11.5-15.5 [facility] Comment on above: Order Comment: Speci men Type: BLOOD SPECIMENOrdering Facility: [facility] Address: [address] [place] [address] Performed By: #### 5 7021-8 ####[facility] LABCLIA [id number] [address] LABCLIA [id number] [place] [address] [place] Lymphocytes (Bld) [#/Vol] 1.82 10*3/uL Normal 1.00-4.00 [facility] Comment on above: Order Comment: Speci men Type: BLOOD SPECIMENOrdering Facility: [facility] Address: [address] [place] [address] Performed By: #### 5 7021-8 ####[facility] LABCLIA [id number] [address] LABCLIA [id number] [place] [address] [place] Lymphocytes/100 WBC (Bld) 26.1 % Normal [facility] Comment on above: Order Comment: Speci men Type: BLOOD SPECIMENOrdering Facility: [facility] Address: [address] [place] [address] Performed By: #### 5 7021-8 ####[facility] LABCLIA [id number] [place] [id number] LABCLIA [id number] [place] [address] [place] MCH (RBC) [Entitic mass] 30.7 pg Normal 26.0-34.0 [facility] Comment on above: Order Comment: Speci men Type: BLOOD SPECIMENOrdering Facility: [facility] Address: [address] [place] [address] Performed By: #### 5 7021-8 ####[facility] LABCLIA [id number] [address] LABCLIA [id number] [place] [address] [place] MCHC (RBC) [Mass/Vol] 33.0 g/dL Normal 30.5-36.0 [facility] Comment on above: Order Comment: Speci men Type: BLOOD SPECIMENOrdering Facility: [facility] Address: [address] [place] [address] Performed By: #### 5 7021-8 ####[facility] LABCLIA [id number] [address] LABCLIA [id number] [place] [address] [place] MCV (RBC) [Entitic vol] 93.3 fL Normal 80.0-100.0 [facility] Comment on above: Order Comment: Speci men Type: BLOOD SPECIMENOrdering Facility: [facility] Address: [address] [place] [address] Performed By: #### 5 7021-8 ####[facility] LABCLIA [id number] [address] LABCLIA [id number] [place] [address] [place] Metamyelocytes/100 WBC (Bld) 2.7 % Normal [facility] Comment on above: Order Comment: Speci men Type: BLOOD SPECIMENOrdering Facility: [facility] Address: [address] [place] [address] Performed By: #### 5 7021-8 ####[facility] LABCLIA [id number] [address] LABCLIA [id number] [place] [address] [place] Monocytes (Bld) [#/Vol] 0.38 10*3/uL Normal <0.87 [facility] Comment on above: Order Comment: Speci men Type: BLOOD SPECIMENOrdering Facility: [facility] Address: [address] [place] [address] Performed By: #### 5 7021-8 ####[facility] LABCLIA [id number] [address] LABCLIA [id number] [place] [address] [place] Monocytes/100 WBC (Bld) 5.4 % Normal [facility] Comment on above: Order Comment: Speci men Type: BLOOD SPECIMENOrdering Facility: [facility] Address: [address] [place] [address] Performed By: #### 5 7021-8 ####[facility] LABCLIA [id number] [address] LABCLIA [id number] [place] [address] [place] MYELO% 0.9 % Normal [facility] Comment on above: Order Comment: Speci men Type: BLOOD SPECIMENOrdering Facility: [facility] Address: [address] [place] [address] Performed By: #### 5 7021-8 ####[facility] LABCLIA [id number] [address] [facility] LABCLIA [id number] [address] [address] [place] Neutrophils (Bld) [#/Vol] 4.45 10*3/uL Normal 1.45-7.50 [facility] Comment on above: Order Comment: Speci men Type: BLOOD SPECIMENOrdering Facility: [facility] Address: [address] [place] [address] Performed By: #### 5 7021-8 ####[facility] LABCLIA [id number] [address] LABCLIA [id number] [place] [address] [place] Neutrophils/100 WBC (Bld) 64.0 % Normal [facility] Comment on above: Order Comment: Speci men Type: BLOOD SPECIMENOrdering Facility: [facility] Address: [address] [place] [address] Performed By: #### 5 7021-8 ####[facility] LABCLIA [id number] [address] LABCLIA [id number] [place] [address] [place] Nucleated RBC (Bld) [#/Vol] 10*3/uL Normal <0.01 [facility] Comment on above: Order Comment: Speci men Type: BLOOD SPECIMENOrdering Facility: [facility] Address: [address] [place] [address] Performed By: #### 5 7021-8 ####[facility] LABCLIA [id number] [address] LABCLIA [id number] [place] [address] [place] Nucleated RBC/100 WBC (Bld) [Ratio] 0.0 /100 WBC Normal [facility] Comment on above: Order Comment: Speci men Type: BLOOD SPECIMENOrdering Facility: [facility] Address: [address] [place] [address] Performed By: #### 5 7021-8 ####[facility] LABCLIA [id number] [address] LABCLIA [id number] [place] [address] [place] Ovalocytes LM Ql (Bld) Few Normal [facility] Comment on above: Order Comment: Speci men Type: BLOOD SPECIMENOrdering Facility: [facility] Address: [address] [place] [address] Performed By: #### 5 7021-8 ####[facility] LABCLIA [id number] [address] LABCLIA [id number] [place] [address] [place] Platelet mean volume (Bld) [Entitic vol] 10.3 fL Normal 9.0-12.7 [facility] Comment on above: Order Comment: Speci men Type: BLOOD SPECIMENOrdering Facility: [facility] Address: [address] [place] [address] Performed By: #### 5 7021-8 ####[facility] LABCLIA [id number] [address] LABCLIA [id number] [place] [address] [place] Platelets (Bld) [#/Vol] 382 10*3/uL Normal 150-400 [facility] Comment on above: Order Comment: Speci men Type: BLOOD SPECIMENOrdering Facility: [facility] Address: [address] [place] [address] Performed By: #### 5 7021-8 ####[facility] LABCLIA [id number] [address] LABCLIA [id number] [place] [address] [place] Platelets Estimate (Bld) [#/Vol] Adequate Normal [facility] Comment on above: Order Comment: Speci men Type: BLOOD SPECIMENOrdering Facility: [facility] Address: [address] [place] [address] Performed By: #### 5 7021-8 ####[facility] LABCLIA [id number] [address] LABCLIA [id number] [place] [address] [place] Polychromasia LM Ql (Bld) Slight Normal [facility] Comment on above: Order Comment: Speci men Type: BLOOD SPECIMENOrdering Facility: [facility] Address: [address] [place] [address] Performed By: #### 5 7021-8 ####[facility] LABCLIA [id number] [address] LABCLIA [id number] [place] [address] [place] RBC (Bld) [#/Vol] 3.87 10*6/uL Low 3.90-5.20 [facility] Comment on above: Order Comment: Speci men Type: BLOOD SPECIMENOrdering Facility: [facility] Address: [address] [place] [address] Performed By: #### 5 7021-8 ####[facility] LABCLIA [id number] [address] LABCLIA [id number] [place] [address] [place] RBC FRAGMENTS Few Abnormal None Seen [facility] Comment on above: Order Comment: Speci men Type: BLOOD SPECIMENOrdering Facility: [facility] Address: [address] [place] [address] Performed By: #### 5 7021-8 ####[facility] LABCLIA [id number] [place] [id number] LABCLIA [id number] [place] [address] [place] RED CELL MORPH Reviewed: see result s of individual morphologies Normal [facility] Comment on above: Order Comment: Speci men Type: BLOOD SPECIMENOrdering Facility: [facility] Address: [address] [place] [address] Performed By: #### 5 7021-8 ####[facility] LABCLIA [id number] [address] LABCLIA [id number] [place] [address] [place] WBC (Bld) [#/Vol] 6.96 10*3/uL Normal 3.70-11.00 [facility] Comment on above: Order Comment: Speci men Type: BLOOD SPECIMENOrdering Facility: [facility] Address: [address] [place] [address] Performed By: #### 5 7021-8 ####[facility] LABCLIA [id number] [place] [id number] LABCLIA [id number] [place] [address] [place] WBC Left Shift Ql (Bld) Present Normal [facility] Comment on above: Order Comment: Speci men Type: BLOOD SPECIMENOrdering Facility: [facility] Address: [address] [place], [place] [address] Performed By: #### 5 7021-8 ####[facility] LABCLIA [id number] [place] [id number] LABCLIA [id number] [place] [address] [place] CNOVSPon 11-05-2023 CNOVSP Normal [facility] CNPNon 03-12-2024 CNPN Normal [facility] CT CTA CHESTon 11-05-2023 CT CTA [...] Garza DO on 11/05/2023 3:07 PM Normal [facility] Comprehensive metabolic 2000 panelon 11-05-2023 Albumin [Mass/Vol] 3.9 g/dL Normal 3.9-4.9 [facility] Comment on above: Order Comment: Speci men Type: BLOOD SPECIMENOrdering Facility: [facility] Address: [address] [place] [address] Performed By: #### 2 4323-8 ####[facility] LABIA [id number] [place] [address] ALP [Catalytic activity/Vol] 124 U/L High 34-123 [facility] Comment on above: Order Comment: Speci men Type: BLOOD SPECIMENOrdering Facility: [facility] Address: [address] [place] [address] Performed By: #### 2 4323-8 ####[facility] LABCLIA [id number] [place] [address] ALT [Catalytic activity/Vol] 29 U/L Normal 7-38 [facility] Comment on above: Order Comment: Speci men Type: BLOOD SPECIMENOrdering Facility: [facility] Address: [address] [place] [address] Performed By: #### 2 4323-8 ####[facility] LABCLIA [id number] [place] [address] Anion gap [Moles/Vol] 15 mmol/L Normal 9-18 [facility] Comment on above: Order Comment: Speci men Type: BLOOD SPECIMENOrdering Facility: [facility] Address: [address] [place] [address] Performed By: #### 2 4323-8 ####[facility] LABCLIA [id number] [place] [address] AST [Catalytic activity/Vol] 18 U/L Normal 13-35 [facility] Comment on above: Order Comment: Speci men Type: BLOOD SPECIMENOrdering Facility: [facility] Address: [address] [place] [address] Performed By: #### 2 4323-8 ####[facility] LABCLIA [id number] [place] [address] Bilirubin [Mass/Vol] 0.3 mg/dL Normal 0.2-1.3 [facility] Comment on above: Order Comment: Speci men Type: BLOOD SPECIMENOrdering Facility: [facility] Address: [address] [place] [address] Performed By: #### 2 4323-8 ####[facility] LABCLIA [id number] [place] [address] Calcium [Mass/Vol] 9.0 mg/dL Normal 8.5-10.2 [facility] Comment on above: Order Comment: Speci men Type: BLOOD SPECIMENOrdering Facility: [facility] Address: [address] [place] [address] Performed By: #### 2 4323-8 ####[facility] LABCLIA [id number] [place] [address] Chloride [Moles/Vol] 105 mmol/L Normal 97-105 [facility] Comment on above: Order Comment: Speci men Type: BLOOD SPECIMENOrdering Facility: [facility] Address: [address] [place] [address] Performed By: #### 2 4323-8 ####[facility] LABCLIA [id number] [place] [address] CO2 [Moles/Vol] 22 mmol/L Normal 22-30 [facility] Comment on above: Order Comment: Speci men Type: BLOOD SPECIMENOrdering Facility: [facility] Address: [address] [place] [address] Performed By: #### 2 4323-8 ####[facility] LABCLIA [id number] [place] [address] Creatinine [Mass/Vol] 0.90 mg/dL Normal 0.58-0.96 [facility] Comment on above: Order Comment: Speci men Type: BLOOD SPECIMENOrdering Facility: [facility] Address: [address] [place] [address] Performed By: #### 2 4323-8 ####[facility] LABCLIA [id number] [place] [address] Creatinine and Glomerular filtration rate.predicted panel (S/P/Bld) 69 mL/min/1.73m??? Normal >=60 [facility] Comment on above: Order Comment: Speci men Type: BLOOD SPECIMENOrdering Facility: [facility] Address: [address] [place] [address] Result Comment: Cristal mated Glomerular Filtration Rate [...] actual GFR. Performed By: #### 2 4323-8 ####[facility] LABCLIA [id number] [place] [address] Glucose [Mass/Vol] 186 mg/dL High 74-99 [facility] Comment on above: Order Comment: Speci men Type: BLOOD SPECIMENOrdering Facility: [facility] Address: [address] [place] [address] Result Comment: The [place] Diabetes Association (ADA) provides guidance for cutoff [...] Standards of Medical Care in Diabetes 2016, [place] [employer]. Diabetes Care. 2016.39(Suppl 1). Performed By: #### 2 4323-8 ####[facility] LABCLIA [id number] [place] [address] Potassium [Moles/Vol] 4.1 mmol/L Normal 3.7-5.1 [facility] Comment on above: Order Comment: Speci men Type: BLOOD SPECIMENOrdering Facility: [facility] Address: [address] [place] [address] Performed By: #### 2 4323-8 ####[facility] LABCLIA [id number] [place] [address] Protein [Mass/Vol] 6.4 g/dL Normal 6.3-8.0 [facility] Comment on above: Order Comment: Speci men Type: BLOOD SPECIMENOrdering Facility: [facility] Address: [address] [place] [address] Performed By: #### 2 4323-8 ####[facility] LABCLIA [id number] [place] [address] Sodium [Moles/Vol] 142 mmol/L Normal 136-144 [facility] Comment on above: Order Comment: Speci men Type: BLOOD SPECIMENOrdering Facility: [facility] Address: [address] [place] [address] Performed By: #### 2 4323-8 ####[facility] LABCLIA [id number] [place] [address] Urea nitrogen [Mass/Vol] 12 mg/dL Normal 7-21 [facility] Comment on above: Order Comment: Speci men Type: BLOOD SPECIMENOrdering Facility: [facility] Address: [address] [place] [address] Performed By: #### 2 4323-8 ####[facility] LABCLIA [id number] [place] [address] Albumin [Mass/Vol] 3.9 g/dL 3.9 - 4.9 g/dL ALP [Catalytic activity/Vol] 124 U/L High 34 - 123 U/L ALT [Catalytic activity/Vol] 29 U/L 7 - 38 U/L Anion gap [Moles/Vol] 15 mmol/L 9 - 18 mmol/L AST [Catalytic activity/Vol] 18 U/L 13 - 35 U/L Bilirubin [Mass/Vol] 0.3 mg/dL 0.2 - 1 .3 mg/dL Calcium [Mass/Vol] 9.0 mg/dL 8.5 - 10. 2 mg/dL Chloride [Moles/Vol] 105 mmol/L 97 - 10 5 mmol/L CO2 [Moles/Vol] 22 mmol/L 22 - 30 mmol/L Creatinine [Mass/Vol] 0.90 mg/dL 0.58 - 0.96 mg/dL Estimated Glomerular Filtration Rate 69 mL/min/1.73m >=60 mL/min/1.7 3m Glucose [Mass/Vol] 186 mg/dL High 74 - 99 mg/dL Potassium [Moles/Vol] 4.1 mmol/L 3.7 - 5.1 mmol/L Protein [Mass/Vol] 6.4 g/dL 6.3 - 8.0 g/dL Sodium [Moles/Vol] 142 mmol/L 136 - 144 mmol/L Urea nitrogen [Mass/Vol] 12 mg/dL 7 - 21 mg/dL CNPNon 10-25-2023 CNPN Normal [facility] CBC W Auto Differential pane l (Bld)on 10-22-2023 Basophils (Bld) [#/Vol] 0.04 10*3/uL Normal <0.11 [facility] Comment on above: Order Comment: Speci men Type: BLOOD SPECIMENOrdering Facility: [facility] Address: [address] [place] [address] Performed By: #### 5 7021-8 ####[facility] LABCLIA [id number] [place] [address] Basophils/100 WBC (Bld) 0.3 % Normal [facility] Comment on above: Order Comment: Speci men Type: BLOOD SPECIMENOrdering Facility: [facility] Address: [address] [place] [address] Performed By: #### 5 7021-8 ####[facility] LABCLIA [id number] [place] [address] Differential cell count method Nom (Bld) Auto Normal [facility] Comment on above: Order Comment: Speci men Type: BLOOD SPECIMENOrdering Facility: [facility] Address: [address] [place] [address] Performed By: #### 5 7021-8 ####[facility] LABCLIA [id number] [place] [address] Eosinophils (Bld) [#/Vol] 0.19 10*3/uL Normal <0.46 [facility] Comment on above: Order Comment: Speci men Type: BLOOD SPECIMENOrdering Facility: [facility] Address: [address] [place] [address] Performed By: #### 5 7021-8 ####[facility] LABCLIA [id number] [place] [address] Eosinophils/100 WBC (Bld) 1.6 % Normal [facility] Comment on above: Order Comment: Speci men Type: BLOOD SPECIMENOrdering Facility: [facility] Address: [address] [place] [address] Performed By: #### 5 7021-8 ####[facility] LABCLIA [id number] [place] [address] Erythrocyte distribution width (RBC) [Ratio] 14.3 % Normal 11.5-15.0 [facility] Comment on above: Order Comment: Speci men Type: BLOOD SPECIMENOrdering Facility: [facility] Address: [address] [place] [address] Performed By: #### 5 7021-8 ####[facility] LABCLIA [id number] [place] [address] Hematocrit (Bld) [Volume fraction] 42.8 % Normal 36.0-46.0 [facility] Comment on above: Order Comment: Speci men Type: BLOOD SPECIMENOrdering Facility: [facility] Address: [address] [place] [address] Performed By: #### 5 7021-8 ####[facility] LABCLIA [id number] [place] [address] Hemoglobin (Bld) [Mass/Vol] 14.0 g/dL Normal 11.5-15.5 [facility] Comment on above: Order Comment: Speci men Type: BLOOD SPECIMENOrdering Facility: [facility] Address: [address] [place] [address] Performed By: #### 5 7021-8 ####[facility] LABCLIA [id number] [place] [address] Immature granulocytes (Bld) [#/Vol] 0.05 10*3/uL Normal <0.10 [facility] Comment on above: Order Comment: Speci men Type: BLOOD SPECIMENOrdering Facility: [facility] Address: [address] [place] [address] Performed By: #### 5 7021-8 ####[facility] LABCLIA [id number] [place] [address] Immature granulocytes/100 WBC (Bld) 0.4 % Normal [facility] Comment on above: Order Comment: Speci men Type: BLOOD SPECIMENOrdering Facility: [facility] Address: [address] [place] [address] Performed By: #### 5 7021-8 ####[facility] LABCLIA [id number] [place] [address] Lymphocytes (Bld) [#/Vol] 2.04 10*3/uL Normal 1.00-4.00 [facility] Comment on above: Order Comment: Speci men Type: BLOOD SPECIMENOrdering Facility: [facility] Address: [address] [place] [address] Performed By: #### 5 7021-8 ####[facility] LABCLIA [id number] [place] [address] Lymphocytes/100 WBC (Bld) 16.8 % Normal [facility] Comment on above: Order Comment: Speci men Type: BLOOD SPECIMENOrdering Facility: [facility] Address: [address] [place] [address] Performed By: #### 5 7021-8 ####[facility] LABCLIA [id number] [place] [address] MCH (RBC) [Entitic mass] 30.8 pg Normal 26.0-34.0 [facility] Comment on above: Order Comment: Speci men Type: BLOOD SPECIMENOrdering Facility: [facility] Address: [address] [place] [address] Performed By: #### 5 7021-8 ####[facility] LABCLIA [id number] [place] [address] MCHC (RBC) [Mass/Vol] 32.7 g/dL Normal 30.5-36.0 [facility] Comment on above: Order Comment: Speci men Type: BLOOD SPECIMENOrdering Facility: [facility] Address: [address] [place] [address] Performed By: #### 5 7021-8 ####[facility] LABCLIA [id number] [place] [address] MCV (RBC) [Entitic vol] 94.1 fL Normal 80.0-100.0 [facility] Comment on above: Order Comment: Speci men Type: BLOOD SPECIMENOrdering Facility: [facility] Address: [address] [place] [address] Performed By: #### 5 7021-8 ####[facility] LABCLIA [id number] [place] [address] Monocytes (Bld) [#/Vol] 0.54 10*3/uL Normal <0.87 [facility] Comment on above: Order Comment: Speci men Type: BLOOD SPECIMENOrdering Facility: [facility] Address: [address] [place] [address] Performed By: #### 5 7021-8 ####[facility] LABCLIA [id number] [place] [address] Monocytes/100 WBC (Bld) 4.4 % Normal [facility] Comment on above: Order Comment: Speci men Type: BLOOD SPECIMENOrdering Facility: [facility] Address: [address] [place] [address] Performed By: #### 5 7021-8 ####[facility] LABCLIA [id number] [place] [address] Neutrophils (Bld) [#/Vol] 9.30 10*3/uL High 1.45-7.50 [facility] Comment on above: Order Comment: Speci men Type: BLOOD SPECIMENOrdering Facility: [facility] Address: [address] [place] [address] Performed By: #### 5 7021-8 ####[facility] LABCLIA [id number] [place] [address] Neutrophils/100 WBC (Bld) 76.5 % Normal [facility] Comment on above: Order Comment: Speci men Type: BLOOD SPECIMENOrdering Facility: [facility] Address: [address] [place] [address] Performed By: #### 5 7021-8 ####[facility] LABCLIA [id number] [place] [address] Nucleated RBC (Bld) [#/Vol] 10*3/uL Normal <0.01 [facility] Comment on above: Order Comment: Speci men Type: BLOOD SPECIMENOrdering Facility: [facility] Address: [address] [place] [address] Performed By: #### 5 7021-8 ####[facility] LABCLIA [id number] [place] [address] Nucleated RBC/100 WBC (Bld) [Ratio] 0.0 /100 WBC Normal [facility] Comment on above: Order Comment: Speci men Type: BLOOD SPECIMENOrdering Facility: [facility] Address: [address] [place] [address] Performed By: #### 5 7021-8 ####[facility] LABCLIA [id number] [place] [address] Platelet mean volume (Bld) [Entitic vol] 9.7 fL Normal 9.0-12.7 [facility] Comment on above: Order Comment: Speci men Type: BLOOD SPECIMENOrdering Facility: [facility] Address: [address] [place] [address] Performed By: #### 5 7021-8 ####[facility] LABCLIA [id number] [place] [address] Platelets (Bld) [#/Vol] 300 10*3/uL Normal 150-400 [facility] Comment on above: Order Comment: Speci men Type: BLOOD SPECIMENOrdering Facility: [facility] Address: [address] [place] [address] Performed By: #### 5 7021-8 ####[facility] LABCLIA [id number] [place] [address] RBC (Bld) [#/Vol] 4.55 10*6/uL Normal 3.90-5.20 [facility] Comment on above: Order Comment: Speci men Type: BLOOD SPECIMENOrdering Facility: [facility] Address: [address] [place] [address] Performed By: #### 5 7021-8 ####[facility] LABCLIA [id number] [place] [address] WBC (Bld) [#/Vol] 12.16 10*3/uL High 3.70-11.00 [facility] Comment on above: Order Comment: Speci men Type: BLOOD SPECIMENOrdering Facility: [facility] Address: [address] [place] [address] Performed By: #### 5 7021-8 ####[facility] LABCLIA [id number] [place] [address] Basophils (Bld) [#/Vol] 0.04 10*3/uL <0.11 k/uL Basophils/100 WBC (Bld) 0.3 % Differential cell count method Nom (Bld) Auto Eosinophils (Bld) [#/Vol] 0.19 10*3/uL <0.46 k/uL Eosinophils/100 WBC (Bld) 1.6 % Erythrocyte distribution width (RBC) [Ratio] 14.3 % 11.5 - 15.0 % Hematocrit (Bld) [Volume fraction] 42.8 % 36.0 - 46.0 % Hemoglobin (Bld) [Mass/Vol] 14.0 g/dL 11.5 - 15.5 g/dL Immature granulocytes (Bld) [#/Vol] 0.05 10*3/uL <0.10 k/uL Immature granulocytes/100 WBC (Bld) 0.4 % Lymphocytes (Bld) [#/Vol] 2.04 10*3/uL 1.00 - 4.00 k/uL Lymphocytes/100 WBC (Bld) 16.8 % MCH (RBC) [Entitic mass] 30.8 pg 26.0 - 34.0 pg MCHC (RBC) [Mass/Vol] 32.7 g/dL 30.5 - 36.0 g/dL MCV (RBC) [Entitic vol] 94.1 fL 80.0 - 100.0 fL Monocytes (Bld) [#/Vol] 0.54 10*3/uL <0.87 k/uL Monocytes/100 WBC (Bld) 4.4 % Neutrophils (Bld) [#/Vol] 9.30 10*3/uL High 1.45 - 7.50 k/uL Neutrophils/100 WBC (Bld) 76.5 % Nucleated RBC (Bld) [#/Vol] <0.01 k/uL Nucleated RBC/100 WBC (Bld) [Ratio] 0.0 /100 WBC Platelet mean volume (Bld) [Entitic vol] 9.7 fL 9.0 - 12.7 fL Platelets (Bld) [#/Vol] 300 10*3/uL 150 - 400 k/uL RBC (Bld) [#/Vol] 4.55 10*6/uL 3.90 - 5.20 m/uL WBC (Bld) [#/Vol] 12.16 10*3/uL High 3.70 - 11.00 k/uL CNCNPATEDon 10-22-2023 CNCNPATED Normal [facility] CNOVSPon 10-22-2023 CNOVSP Normal [facility] CNPNon 10-22-2023 CNPN Normal [facility] Comprehensive metabolic 2000 panelon 10-22-2023 Albumin [Mass/Vol] 4.1 g/dL Normal 3.9-4.9 [facility] Comment on above: Order Comment: Speci men Type: BLOOD SPECIMENOrdering Facility: [facility] Address: [address] [place] [address] Performed By: #### 2 4323-8 ####[facility] LABCLIA [id number] [place] [address] ALP [Catalytic activity/Vol] 117 U/L Normal 34-123 [facility] Comment on above: Order Comment: Speci men Type: BLOOD SPECIMENOrdering Facility: [facility] Address: [address] [place] [address] Performed By: #### 2 4323-8 ####[facility] LABCLIA [id number] [place] [address] ALT [Catalytic activity/Vol] 32 U/L Normal 7-38 [facility] Comment on above: Order Comment: Speci men Type: BLOOD SPECIMENOrdering Facility: [facility] Address: [address] [place] [address] Performed By: #### 2 4323-8 ####[facility] LABCLIA [id number] [place] [address] Anion gap [Moles/Vol] 11 mmol/L Normal 9-18 [facility] Comment on above: Order Comment: Speci men Type: BLOOD SPECIMENOrdering Facility: [facility] Address: [address] [place] [address] Performed By: #### 2 4323-8 ####[facility] LABIA [id number] [place] [address] AST [Catalytic activity/Vol] 17 U/L Normal 13-35 [facility] Comment on above: Order Comment: Speci men Type: BLOOD SPECIMENOrdering Facility: [facility] Address: [address] [place] [address] Performed By: #### 2 4323-8 ####[facility] LABCLIA [id number] [place] [address] Bilirubin [Mass/Vol] 0.8 mg/dL Normal 0.2-1.3 [facility] Comment on above: Order Comment: Speci men Type: BLOOD SPECIMENOrdering Facility: [facility] Address: [address] [place] [address] Performed By: #### 2 4323-8 ####[facility] LABCLIA [id number] [place] [address] Calcium [Mass/Vol] 9.5 mg/dL Normal 8.5-10.2 [facility] Comment on above: Order Comment: Speci men Type: BLOOD SPECIMENOrdering Facility: [facility] Address: [address] [place] [address] Performed By: #### 2 4323-8 ####[facility] LABCLIA [id number] [place] [address] Chloride [Moles/Vol] 108 mmol/L High 97-105 [facility] Comment on above: Order Comment: Speci men Type: BLOOD SPECIMENOrdering Facility: [facility] Address: [address] [place] [address] Performed By: #### 2 4323-8 ####[facility] LABCLIA [id number] [place] [address] CO2 [Moles/Vol] 27 mmol/L Normal 22-30 [facility] Comment on above: Order Comment: Speci men Type: BLOOD SPECIMENOrdering Facility: [facility] Address: [address] [place] [address] Performed By: #### 2 4323-8 ####[facility] LABCLIA [id number] [place] [address] Creatinine [Mass/Vol] 1.01 mg/dL High 0.58-0.96 [facility] Comment on above: Order Comment: Alison mccain Type: BLOOD SPECIMENOrdering Facility: [facility] Address: [address] [id number] Performed By: #### 2 4323-8 ####[facility] LABCLIA [id number] [place] [address] Creatinine and Glomerular filtration rate.predicted panel (S/P/Bld) 61 mL/min/1.73m??? Normal >=60 [facility] Comment on above: Order Comment: Specbirgit mccain Type: BLOOD SPECIMENOrdering Facility: [facility] Address: [address] [place] [address] Result Comment: Cristal mated Glomerular Filtration Rate [...] actual GFR. Performed By: #### 2 4323-8 ####[facility] LABCLIA [id number] [place] [address] Glucose [Mass/Vol] 130 mg/dL High 74-99 [facility] Comment on above: Order Comment: Alison kalyn Type: BLOOD SPECIMENOrdering Facility: [facility] Address: [address] [id number] Result Comment: The [place] [employer] (ADA) provides guidance for cutoff [...] Standards of Medical Care in Diabetes 2016, [place] [employer]. Diabetes Care. 2016.39(Suppl 1). Performed By: #### 2 4323-8 ####[facility] LABCLIA [id number] [place] [address] Potassium [Moles/Vol] 4.2 mmol/L Normal 3.7-5.1 [facility] Comment on above: Order Comment: Speci men Type: BLOOD SPECIMENOrdering Facility: [facility] Address: [address] [place] [address] Performed By: #### 2 4323-8 ####[facility] LABCLIA [id number] [place] [address] Protein [Mass/Vol] 6.4 g/dL Normal 6.3-8.0 [facility] Comment on above: Order Comment: Speci men Type: BLOOD SPECIMENOrdering Facility: [facility] Address: [address] [place] [address] Performed By: #### 2 4323-8 ####[facility] LABCLIA [id number] [place] [address] Sodium [Moles/Vol] 146 mmol/L High 136-144 [facility] Comment on above: Order Comment: Speci men Type: BLOOD SPECIMENOrdering Facility: [facility] Address: [address] [place] [address] Performed By: #### 2 4323-8 ####[facility] LABCLIA [id number] [place] [address] Urea nitrogen [Mass/Vol] 21 mg/dL Normal 7-21 [facility] Comment on above: Order Comment: Speci men Type: BLOOD SPECIMENOrdering Facility: [facility] Address: [address] [place] [address] Performed By: #### 2 4323-8 ####[facility] LABCLIA [id number] [place] [address] Albumin [Mass/Vol] 4.1 g/dL 3.9 - 4.9 g/dL ALP [Catalytic activity/Vol] 117 U/L 34 - 123 U/L ALT [Catalytic activity/Vol] 32 U/L 7 - 38 U/L Anion gap [Moles/Vol] 11 mmol/L 9 - 18 mmol/L AST [Catalytic activity/Vol] 17 U/L 13 - 35 U/L Bilirubin [Mass/Vol] 0.8 mg/dL 0.2 - 1 .3 mg/dL Calcium [Mass/Vol] 9.5 mg/dL 8.5 - 10. 2 mg/dL Chloride [Moles/Vol] 108 mmol/L High 97 - 10 5 mmol/L CO2 [Moles/Vol] 27 mmol/L 22 - 30 mmol/L Creatinine [Mass/Vol] 1.01 mg/dL High 0.58 - 0.96 mg/dL Estimated Glomerular Filtration Rate 61 mL/min/1.73m >=60 mL/min/1.7 3m Glucose [Mass/Vol] 130 mg/dL High 74 - 99 mg/dL Potassium [Moles/Vol] 4.2 mmol/L 3.7 - 5.1 mmol/L Protein [Mass/Vol] 6.4 g/dL 6.3 - 8.0 g/dL Sodium [Moles/Vol] 146 mmol/L High 136 - 144 mmol/L Urea nitrogen [Mass/Vol] 21 mg/dL 7 - 21 mg/dL CNPNon 10-14-2023 CNPN Normal [facility] CNPNon 10-11-2023 CNPN Normal [facility] CNPNon 10-10-2023 CNPN Normal [facility] CNPNon 10-07-2023 CNPN Normal [facility] ANES POSTPROC EVALon 024 ANES POSTPROC EVAL HNO ID: [id number] Author: VIRGILIO BALDWIN MD Service: Anesthesiology Author Type: Physician Type: Anesthesia Postprocedure Evaluation Filed: 09/27/2023 14:47 Note Text: POST ANESTHESIA EVALUATION NOTE : 1955 Procedure Summary Date: 09/27/23 Room / Location: AV IR01 / AV IR Anesthesia Start: 1323 Anesthesia Stop: 1445 [...] September 27, 2023 TIME: 2:47 PM CSN: [id number] [facility] ANES PRE-OPon 09-27-2023 ANES PRE-OP HNO ID: [id number] Author: VIRGILIO BALDWIN MD Service: Anesthesiology Author [...] PULMONARY (+) COPD (chronic obstructive pulmonary disease) ([facility]) (+) PETERSON (dyspnea on exertion) Other (+) Arthritis of both knees (+) RA (rheumatoid arthritis) ([facility]) I - PHYSICAL EVALUATION AIRWAY Patient [...] and consent discussed: yes. Patient / Responsible Republican agrees to proceed: yes Patient / Surrogate [...] September 27, 2023 TIME: 12:47 PM CSN: [id number] [facility] 09-27-2023 [facility] IR FLU GD ALE CVA PLACEon IR FLU GD ALE CVA PLACE * * *Final Report* * * DATE OF EXAM: Sep 27 2023 2:31PM A [id number] - IR FLU GD ALE CVA [...] verified and all sponge were accounted. The Central Line Insertion checklist, attached to the Central Line-Associated Bloodstream Infection Prevention Policy, was utilized during this procedure. RESULT: Ultrasound demonstrated patency of the chosen vein. Tip of the catheter terminated in the distal superior vena cava-right atrial junction. ACCESS: Right internal jugular vein INDWELLING DEVICE: 8 F PowerPort by [employer] [facility] (distal valved) silicone catheter with pressure [...] Specimens: None ATTENDING RADIOLOGIST: Hui Villafuerte M.D. DIRECTOR ADVERTISING: None The procedure was performed by the: attending radiologist, without an financial planning assistant. The attending radiologist performed the following procedural activities: Entire procedure IMPRESSION: SUCCESSFUL PLACEMENT OF PORTED CATHETER VIA RIGHT IJV. THE CATHETER IS READY FOR USE. PLEASE NOTE: This catheter requires normal saline flushes. Recommend flush interval of 90 days when not being used. Grass Farm Laborer: BEA Transcribe Date/Time: Sep 27 2023 2:34P Dictated b (more content not included)... Normal [facility] IR PORTOCATH PLACEMENTon IR PORTOCATH PLACEMENT * * *Final Report* * * DATE OF EXAM: Sep 27 2023 2:31PM [facility] 8966 - IR PORTOCATH PLACEMENT / PROCEDURE [...] verified and all sponge were accounted. The Central Line Insertion checklist, attached to the Central Line-Associated Bloodstream Infection Prevention Policy, was utilized during this procedure. RESULT: Ultrasound demonstrated patency of the chosen vein. Tip of the catheter terminated in the distal superior vena cava-right atrial junction. ACCESS: Right internal jugular vein INDWELLING DEVICE: 8 F PowerPort by [employer] [facility] (distal valved) silicone catheter with pressure injectable [...] Specimens: None ATTENDING RADIOLOGIST: Hui Villafuerte M.D. DIRECTOR ADVERTISING: None The procedure was performed by the: attending radiologist, without an financial planning assistant. The attending radiologist performed the following procedural activities: Entire procedure IMPRESSION: SUCCESSFUL PLACEMENT OF PORTED CATHETER VIA RIGHT IJV. THE CATHETER IS READY FOR USE. PLEASE NOTE: This catheter requires normal saline flushes. Recommend flush interval of 90 days when not being used. Grass Farm Laborer: BEA Transcribe Date/Time: Sep 27 2023 2:34P Dictated by (more content not included)... [facility] IR US VASCULAR ACCESS GUIDEo n 09-27-2023 IR US VASCULAR ACCESS GUIDE * * *Final Report* * * DATE OF EXAM: Sep 27 2023 2:31PM [facility] 7765 - IR US VASCULAR ACCESS GUIDE [...] verified and all sponge were accounted. The Central Line Insertion checklist, attached to the Central Line-Associated Bloodstream Infection Prevention Policy, was utilized during this procedure. RESULT: Ultrasound demonstrated patency of the chosen vein. Tip of the catheter terminated in the distal superior vena cava-right atrial junction. ACCESS: Right internal jugular vein INDWELLING DEVICE: 8 F PowerPort by [employer] [facility] (distal valved) silicone catheter with pressure injectable [...] Specimens: None ATTENDING RADIOLOGIST: Hui Villafuerte M.D. DIRECTOR ADVERTISING: None The procedure was performed by the: attending radiologist, without an financial planning assistant. The attending radiologist performed the following procedural activities: Entire procedure IMPRESSION: SUCCESSFUL PLACEMENT OF PORTED CATHETER VIA RIGHT IJV. THE CATHETER IS READY FOR USE. PLEASE NOTE: This catheter requires normal saline flushes. Recommend flush interval of 90 days when not being used. Grass Farm Laborer: BEA Transcribe Date/Time: Sep 27 2023 2:34P Dictat (more content not included)... Normal [facility] HISTORY PHYSICALon HISTORY PHYSICAL Normal [facility] CNNURSEon 09-24-2023 CNNURSE Normal [facility] CNPNon 09-23-2023 CNPN Telephone (AVXRPR) -- MINAL CAPUTO ([id number]) 1955 F Date Time Provider Department 09/23/23 MASTER CROWLEYXRFRED During your visit today, we recorded the following information about you: Master Crowley RN 09/23/2023 12:22 PM Signed You are scheduled for a Mediport Placement, On 09/27/2023. You are to arrive at 12:00 pm and Report to [facility]: Enter through [facility] entrance. Proceed [...] Labs: Lab-work needs to be drawn? No. Administrative Assistant Data Entry/Transportation: How will you be arriving for your procedure? Private car. You will need a responsible adult to accompany you to and from the procedure. Your oil transport driver is required to stay with you until you are taken into the procedure room. If you have any questions please call [phone] Allergies As of Date: 09/23/2023 Noted Allergy [...] Encounter Status:Closed by MASTER CROWLEY on 09/23/23 [facility] CNPN [facility] CBC W Auto Differential pane l (Bld)on 09-20-2023 Basophils (Bld) [#/Vol] 0.04 10*3/uL Normal <0.11 [facility] Comment on above: Order Comment: Speci men Type: BLOOD SPECIMEN Ordering Facility: [facility] Address: [address] [place] [address] Performed By: #### 5 7021-8 #### [facility] CLIA [id number] [address] [place] [address] [place] Basophils/100 WBC (Bld) 0.5 % Normal [facility] Comment on above: Order Comment: Speci men Type: BLOOD SPECIMEN Ordering Facility: [facility] Address: [address] [place] [address] Performed By: #### 5 7021-8 #### [facility] CLIA [id number] [address] [place] [address] [place] Differential cell count method Nom (Bld) Auto Normal [facility] Comment on above: Order Comment: Speci men Type: BLOOD SPECIMEN Ordering Facility: [facility] Address: [address] [place] [address] Performed By: #### 5 7021-8 #### [facility] CLIA [id number] [address] [place] [address] [place] Eosinophils (Bld) [#/Vol] 0.28 10*3/uL Normal <0.46 [facility] Comment on above: Order Comment: Speci men Type: BLOOD SPECIMEN Ordering Facility: [facility] Address: [address] [place] [address] Performed By: #### 5 7021-8 #### [facility] CLIA [id number] [address] [place] [address] [place] Eosinophils/100 WBC (Bld) 3.7 % Normal [facility] Comment on above: Order Comment: Speci men Type: BLOOD SPECIMEN Ordering Facility: [facility] Address: [address] [place] [address] Performed By: #### 5 7021-8 #### [facility] CLIA [id number] [address] [place] [address] [place] Erythrocyte distribution width (RBC) [Ratio] 14.1 % Normal 11.5-15.0 [facility] Comment on above: Order Comment: Speci men Type: BLOOD SPECIMEN Ordering Facility: [facility] Address: [address] [place] [address] Performed By: #### 5 7021-8 #### [facility] CLIA [id number] [address] [place] [address] [place] Hematocrit (Bld) [Volume fraction] 46.1 % High 36.0-46.0 [facility] Comment on above: Order Comment: Speci men Type: BLOOD SPECIMEN Ordering Facility: [facility] Address: [address] [place] [address] Performed By: #### 5 7021-8 #### [facility] CLIA [id number] [address] [place] [address] [place] Hemoglobin (Bld) [Mass/Vol] 14.8 g/dL Normal 11.5-15.5 [facility] Comment on above: Order Comment: Speci men Type: BLOOD SPECIMEN Ordering Facility: [facility] Address: [address] [place] [address] Performed By: #### 5 7021-8 #### [facility] CLIA [id number] [address] [place] [address] [place] Immature granulocytes (Bld) [#/Vol] 0.04 10*3/uL Normal <0.10 [facility] Comment on above: Order Comment: Speci men Type: BLOOD SPECIMEN Ordering Facility: [facility] Address: [address] [place] [address] Performed By: #### 5 7021-8 #### [facility] CLIA [id number] [address] [place] [address] [place] Immature granulocytes/100 WBC (Bld) 0.5 % Normal [facility] Comment on above: Order Comment: Speci men Type: BLOOD SPECIMEN Ordering Facility: [facility] Address: [address] [place] [address] Performed By: #### 5 7021-8 #### [facility] CLIA [id number] [address] [place] [address] [place] Lymphocytes (Bld) [#/Vol] 1.63 10*3/uL Normal 1.00-4.00 [facility] Comment on above: Order Comment: Speci men Type: BLOOD SPECIMEN Ordering Facility: [facility] Address: [address] [place] [address] Performed By: #### 5 7021-8 #### [facility] CLIA [id number] [address] [place] [address] [place] Lymphocytes/100 WBC (Bld) 21.4 % Normal [facility] Comment on above: Order Comment: Speci men Type: BLOOD SPECIMEN Ordering Facility: [facility] Address: [address] [place] [address] Performed By: #### 5 7021-8 #### [facility] CLIA [id number] [address] [place] [address] [place] MCH (RBC) [Entitic mass] 31.1 pg Normal 26.0-34.0 [facility] Comment on above: Order Comment: Speci men Type: BLOOD SPECIMEN Ordering Facility: [facility] Address: [address] [place] [address] Performed By: #### 5 7021-8 #### [facility] CLIA [id number] [address] [place] [address] [place] MCHC (RBC) [Mass/Vol] 32.1 g/dL Normal 30.5-36.0 [facility] Comment on above: Order Comment: Speci men Type: BLOOD SPECIMEN Ordering Facility: [facility] Address: [address] [place] [address] Performed By: #### 5 7021-8 #### [facility] CLIA [id number] [address] [place] [address] [place] MCV (RBC) [Entitic vol] 96.8 fL Normal 80.0-100.0 [facility] Comment on above: Order Comment: Speci men Type: BLOOD SPECIMEN Ordering Facility: [facility] Address: [address] [place] [address] Performed By: #### 5 7021-8 #### [facility] CLIA [id number] [address] [place] [address] [place] Monocytes (Bld) [#/Vol] 0.52 10*3/uL Normal <0.87 [facility] Comment on above: Order Comment: Speci men Type: BLOOD SPECIMEN Ordering Facility: [facility] Address: [facility] [place] [address] Performed By: #### 5 7021-8 #### [facility] CLIA [id number] [address] [place] [address] [place] Monocytes/100 WBC (Bld) 6.8 % Normal [facility] Comment on above: Order Comment: Speci men Type: BLOOD SPECIMEN Ordering Facility: [facility] Address: [address] [place] [address] Performed By: #### 5 7021-8 #### [facility] CLIA [id number] [address] [place] [address] [place] Neutrophils (Bld) [#/Vol] 5.11 10*3/uL Normal 1.45-7.50 [facility] Comment on above: Order Comment: Speci men Type: BLOOD SPECIMEN Ordering Facility: [facility] Address: [address] [place] [address] Performed By: #### 5 7021-8 #### [facility] CLIA [id number] [address] [place] [address] [place] Neutrophils/100 WBC (Bld) 67.1 % Normal [facility] Comment on above: Order Comment: Speci men Type: BLOOD SPECIMEN Ordering Facility: [facility] Address: [address] [place] [address] Performed By: #### 5 7021-8 #### [facility] CLIA [id number] [address] [place] [address] [place] Nucleated RBC (Bld) [#/Vol] 10*3/uL Normal <0.01 [facility] Comment on above: Order Comment: Speci men Type: BLOOD SPECIMEN Ordering Facility: [facility] Address: [address] [place] [address] Performed By: #### 5 7021-8 #### [facility] CLIA [id number] [address] [place] [address] [place] Nucleated RBC/100 WBC (Bld) [Ratio] 0.0 /100 WBC Normal [facility] Comment on above: Order Comment: Speci men Type: BLOOD SPECIMEN Ordering Facility: [facility] Address: [address] [place] [address] Performed By: #### 5 7021-8 #### [facility] CLIA [id number] [address] [place] [address] [place] Platelet mean volume (Bld) [Entitic vol] 10.2 fL Normal 9.0-12.7 [facility] Comment on above: Order Comment: Alison mccain Type: BLOOD SPECIMEN Ordering Facility: [facility] Address: [address] [place] [address] Performed By: #### 5 7021-8 #### [facility] CLIA [id number] [address] [place] [address] [place] Platelets (Bld) [#/Vol] 304 10*3/uL Normal 150-400 [facility] Comment on above: Order Comment: Joeli kalyn Type: BLOOD SPECIMEN Ordering Facility: [facility] Address: [address] [place] [address] Performed By: #### 5 7021-8 #### [facility] CLIA [id number] [address] [place] [address] [place] RBC (Bld) [#/Vol] 4.76 10*6/uL Normal 3.90-5.20 [facility] Comment on above: Order Comment: Joeli kalyn Type: BLOOD SPECIMEN Ordering Facility: [facility] Address: [address] [place] [address] Performed By: #### 5 7021-8 #### [facility] CLIA [id number] [address] [place] [address] [place] WBC (Bld) [#/Vol] 7.62 10*3/uL Normal 3.70-11.00 [facility] Comment on above: Order Comment: Joeli men Type: BLOOD SPECIMEN Ordering Facility: [facility] Address: [address] [place] [address] Performed By: #### 5 7021-8 #### [facility] CLIA [id number] [address] [place] [address] [place] CNOVon 09-20-2023 CNOV Office Visit (PLAS ) -- MINAL CAPUTO ([id number]) 1955 F Date Time Provider Department 09/20/23 [...] 4 weeks after surgery. 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 Do not [...] -Consult to lymphedema therapy placed. Please call [phone] to schedule, change, cancel or confirm an appointment. -Return to clinic in when CASSIDY drain meets criteria for removal, okay for home health to remove drain. -Follow up w/ Dr. Urbina in 4 weeks. -If experiencing wound complications or have any questions or concerns during business hours call [phone], option 3 or after hours (after 5 pm or on the weekend) call [phone] and ask for the plastic surgery resident / fellow home service demonstrator for further instructions. If you have increasing [...] Past Histories independently gathered by the clinical academic support assistant and the remaining scribed note accurately describes my personal service to the patient. Referring Provider: BYRON JUNE [[id number]] Allergies As of Date: 09/20/2023 Noted Allergy [...] Other Visit (more content not included)... Normal [facility] CNPNon 09-20-2023 CNPN Normal [facility] metabolic 2000 panelon 09-20-2023 Albumin [Mass/Vol] 3.9 g/dL Normal 3.9-4.9 [facility] Comment on above: Order Comment: Speci men Type: BLOOD SPECIMEN Ordering Facility: [facility] Address: [address] [place] [address] Performed By: #### 2 4323-8 #### [facility] CLIA [id number] [address] [place] [address] [place] ALP [Catalytic activity/Vol] 124 U/L High 34-123 [facility] Comment on above: Order Comment: Speci men Type: BLOOD SPECIMEN Ordering Facility: [facility] Address: [address] [place] [address] Performed By: #### 2 4323-8 #### [facility] CLIA [id number] [address] [place] [address] [place] ALT [Catalytic activity/Vol] 37 U/L Normal 7-38 [facility] Comment on above: Order Comment: Speci men Type: BLOOD SPECIMEN Ordering Facility: [facility] Address: [address] [place] [address] Performed By: #### 2 4323-8 #### [facility] CLIA [id number] [address] [place] [address] [place] Anion gap [Moles/Vol] 17 mmol/L Normal 9-18 [facility] Comment on above: Order Comment: Speci men Type: BLOOD SPECIMEN Ordering Facility: [facility] Address: [address] [place] [address] Performed By: #### 2 4323-8 #### [facility] CLIA [id number] [address] [place] [address] [place] AST [Catalytic activity/Vol] 31 U/L Normal 13-35 [facility] Comment on above: Order Comment: Speci men Type: BLOOD SPECIMEN Ordering Facility: [facility] Address: [address] [place] [address] Performed By: #### 2 4323-8 #### [facility] CLIA [id number] [address] [place] [address] [place] Bilirubin [Mass/Vol] 0.4 mg/dL Normal 0.2-1.3 [facility] Comment on above: Order Comment: Speci men Type: BLOOD SPECIMEN Ordering Facility: [facility] Address: [address] [place] [address] Performed By: #### 2 4323-8 #### [facility] CLIA [id number] [address] [place] [address] [place] Calcium [Mass/Vol] 9.1 mg/dL Normal 8.5-10.2 [facility] Comment on above: Order Comment: Speci men Type: BLOOD SPECIMEN Ordering Facility: [facility] Address: [address] [place] [address] Performed By: #### 2 4323-8 #### [facility] CLIA [id number] [address] [place] [address] [place] Chloride [Moles/Vol] 104 mmol/L Normal 97-105 [facility] Comment on above: Order Comment: Speci men Type: BLOOD SPECIMEN Ordering Facility: [facility] Address: [address] [place] [address] Performed By: #### 2 4323-8 #### [facility] CLIA [id number] [address] [place] [address] [place] CO2 [Moles/Vol] 21 mmol/L Low 22-30 [facility] Comment on above: Order Comment: Speci men Type: BLOOD SPECIMEN Ordering Facility: [facility] Address: [address] [place] [address] Performed By: #### 2 4323-8 #### [facility] CLIA [id number] [address] [place] [address] [place] Creatinine [Mass/Vol] 0.82 mg/dL Normal 0.58-0.96 [facility] Comment on above: Order Comment: Alison kalyn Type: BLOOD SPECIMEN Ordering Facility: [facility] Address: [address] [place] [address] Performed By: #### 2 4323-8 #### [facility] CLIA [id number] [address] [place] [address] [place] Creatinine and Glomerular filtration rate.predicted panel (S/P/Bld) 78 mL/min/1.73m??? Normal >=60 [facility] Comment on above: Order Comment: Alison kalyn Type: BLOOD SPECIMEN Ordering Facility: [facility] Address: [address] [place] [address] Result Comment: Cristal mated Glomerular Filtration Rate [...] GFR. Performed By: #### 2 4323-8 #### [facility] CLIA [id number] [address] [place] [address] [place] Glucose [Mass/Vol] 117 mg/dL High 74-99 [facility] Comment on above: Order Comment: Alison kalyn Type: BLOOD SPECIMEN Ordering Facility: [facility] Address: [address] [place] [address] Result Comment: The [place] [employer] (ADA) provides guidance for cutoff [...] Standards of Medical Care in Diabetes 2016, [place] [employer]. Diabetes Care. 2016.39(Suppl 1). Performed By: #### 2 4323-8 #### [facility] CLIA [id number] [address] [place] [address] [place] Potassium [Moles/Vol] 4.2 mmol/L Normal 3.7-5.1 [facility] Comment on above: Order Comment: Alison mccain Type: BLOOD SPECIMEN Ordering Facility: [facility] Address: [address] [place] [address] Performed By: #### 2 4323-8 #### [facility] CLIA [id number] [address] [place] [address] [place] Protein [Mass/Vol] 6.8 g/dL Normal 6.3-8.0 [facility] Comment on above: Order Comment: Alison mccain Type: BLOOD SPECIMEN Ordering Facility: [facility] Address: [address] [place] [address] Performed By: #### 2 4323-8 #### [facility] CLIA [id number] [address] [place] [address] [place] Sodium [Moles/Vol] 142 mmol/L Normal 136-144 [facility] Comment on above: Order Comment: Alison mccain Type: BLOOD SPECIMEN Ordering Facility: [facility] Address: [address] [place] [address] Performed By: #### 2 4323-8 #### [facility] CLIA [id number] [address] [place] [address] [place] Urea nitrogen [Mass/Vol] 9 mg/dL Normal 7-21 [facility] Comment on above: Order Comment: Alison mccain Type: BLOOD SPECIMEN Ordering Facility: [facility] Address: [address] [place] [address] Performed By: #### 2 4323-8 #### [facility] CLIA [id number] [address] [place] [address] [place] PT panel Coag (PPP)on 2023 INR Coag (PPP) [Relative time] 1.0 {INR} Normal 0.9-1.3 [facility] Comment on above: Order Comment: Alison mccain Type: BLOOD SPECIMEN Ordering Facility: [facility] Address: [address] [place] [address] Result Comment: Rosalinda min K Antagonist (VKA) Therapeutic Range: INR 2 to 3 (Target INR of 2.5) Note: For patients treated with VKA drugs, such as warfarin, the [place] [employer] 2012 Guideline recommends [...] GH, et al. Chest 2012, 141:7S-47S Tim RA et al. [facility] 2017, 70: 252-289 Performed By: #### 3 4528-0 #### [facility] CLIA [id number] [address] [place] [address] STATES [facility] PT Coag (PPP) [Time] 10.9 s Normal 9.7-13.0 [facility] Comment on above: Order Comment: Alison mccain Type: BLOOD SPECIMEN Ordering Facility: [facility] Address: [address] [place] [address] Performed By: #### 3 4528-0 #### [facility] CLIA [id number] [address] [place] [address] [place] CNPDanii 09-19-2023 CNPN Telephone (AVXRPR) -- MINAL CAPUTO ([id number]) 1955 F Date Time Provider Department 09/19/23 ABBY JOLLY (RN) [facility] During your visit today, we recorded the following information about you: Abby Jolly RN 09/19/2023 1:27 PM Signed You are scheduled for a Port Placement, On 09/25/2023. You are to arrive at 1230 PM and Report to [facility]: Enter through [facility] entrance. Proceed [...] if they are not done at a facility. . Administrative Assistant Data Entry/Transportation: How will you be arriving for your procedure? Private car. If you have any questions, please call [phone] Allergies As of Date: 09/19/2023 Noted Allergy [...] by ABBY JOLLY on 09/19/23 [facility] CNPN [facility]23 C[facility]N [facility] CNOVon 09-13-2023 CNOV [facility] CN[facility]SPon 09-13-[facility] 09-13-2023 [facility] Telephone (YADIRA) -- MINAL CAPUTO ([id number]) 1955 F Date Time Provider Department 09/13/23 STEVO OLIVA During your visit today, we recorded the following information about you: Stevo Oliva, PSS 09/13/2023 1:42 PM Signed Was not able [...] Encounter Status:Closed by STEVO OLIVA on 09/13/23 [facility] Basic metabolic 2000 panelon 09-05-2023 Anion gap [Moles/Vol] 13 mmol/L Normal 9-18 [facility] Comment on above: Order Comment: Speci men Type: BLOOD SPECIMENOrdering Facility: [facility] Address: [address] [place] [address] Performed By: #### 2 4321-2 ####[facility] LABCLIA [id number] [facility] [id number] [address] [place] Calcium [Mass/Vol] 8.7 mg/dL Normal 8.5-10.2 [facility] Comment on above: Order Comment: Speci men Type: BLOOD SPECIMENOrdering Facility: [facility] Address: [address] [place] [address] Performed By: #### 2 4321-2 ####[facility] LABCLIA [id number] [place] [address] [place] Chloride [Moles/Vol] 104 mmol/L Normal 97-105 [facility] Comment on above: Order Comment: Speci men Type: BLOOD SPECIMENOrdering Facility: [facility] Address: [address] [place] [address] Performed By: #### 2 4321-2 ####[facility] LABCLIA [id number] [place] [address] [place] CO2 [Moles/Vol] 24 mmol/L Normal 22-30 [facility] Comment on above: Order Comment: Speci men Type: BLOOD SPECIMENOrdering Facility: [facility] Address: [address] [place] [address] Performed By: #### 2 4321-2 ####[facility] LABCLIA [id number] [place] [address] [place] Creatinine [Mass/Vol] 1.04 mg/dL High 0.58-0.96 [facility] Comment on above: Order Comment: Speci men Type: BLOOD SPECIMENOrdering Facility: [facility] Address: [address] [place] [address] Performed By: #### 2 4321-2 ####[facility] LABCLIA [id number] [place] [address] [place] Creatinine and Glomerular filtration rate.predicted panel (S/P/Bld) 59 mL/min/1.73m??? Low >=60 [facility] Comment on above: Order Comment: Speci men Type: BLOOD SPECIMENOrdering Facility: [facility] Address: [address] [place] [address] Result Comment: Cristal mated Glomerular Filtration Rate [...] actual GFR. Performed By: #### 2 4321-2 ####[facility] LABIA [id number] [place] [address] [place] Glucose [Mass/Vol] 169 mg/dL High 74-99 [facility] Comment on above: Order Comment: Speci men Type: BLOOD SPECIMENOrdering Facility: [facility] Address: [address] [place] [address] Result Comment: The [place] Diabetes Association (ADA) provides guidance for cutoff [...] Standards of Medical Care in Diabetes 2016, [place] [employer]. Diabetes Care. 2016.39(Suppl 1). Performed By: #### 2 4321-2 ####[facility] LABIA [id number] [place] [address] [place] Potassium [Moles/Vol] 4.2 mmol/L Normal 3.7-5.1 [facility] Comment on above: Order Comment: Speci men Type: BLOOD SPECIMENOrdering Facility: [facility] Address: [address] [place] [address] Performed By: #### 2 4321-2 ####[facility] LABIA [id number] [place] [id number] [place] Sodium [Moles/Vol] 141 mmol/L Normal 136-144 [facility] Comment on above: Order Comment: Speci men Type: BLOOD SPECIMENOrdering Facility: [facility] Address: [address] [place] [address] Performed By: #### 2 4321-2 ####[facility] LABCLIA [id number] [place] [address] [place] Urea nitrogen [Mass/Vol] 17 mg/dL Normal 7-21 [facility] Comment on above: Order Comment: Speci men Type: BLOOD SPECIMENOrdering Facility: [facility] Address: [address] [place] [address] Performed By: #### 2 4321-2 ####[facility] LABCLIA [id number] [place] [address] [place] CBC panel Auto (Bld)on 09-05 Erythrocyte distribution width (RBC) [Ratio] 13.9 % Normal 11.5-15.0 [facility] Comment on above: Order Comment: Speci men Type: BLOOD SPECIMENOrdering Facility: [facility] Address: [address] [place] [address] Performed By: #### 5 8410-2 ####[facility] LABCLIA [id number] [place] [address] [place] Hematocrit (Bld) [Volume fraction] 39.4 % Normal 36.0-46.0 [facility] Comment on above: Order Comment: Speci men Type: BLOOD SPECIMENOrdering Facility: [facility] Address: [address] [place] [address] Performed By: #### 5 8410-2 ####[facility] LABCLIA [id number] [place] [address] [place] Hemoglobin (Bld) [Mass/Vol] 13.0 g/dL Normal 11.5-15.5 [facility] Comment on above: Order Comment: Speci men Type: BLOOD SPECIMENOrdering Facility: [facility] Address: [address] [place] [address] Performed By: #### 5 8410-2 ####[facility] LABIA [id number] [place] [address] [place] MCH (RBC) [Entitic mass] 31.0 pg Normal 26.0-34.0 [facility] Comment on above: Order Comment: Speci men Type: BLOOD SPECIMENOrdering Facility: [facility] Address: [address] [place] [address] Performed By: #### 5 8410-2 ####[facility] LABIA [id number] [place] [address] [place] MCHC (RBC) [Mass/Vol] 33.0 g/dL Normal 30.5-36.0 [facility] Comment on above: Order Comment: Speci men Type: BLOOD SPECIMENOrdering Facility: [facility] Address: [address] [place] [address] Performed By: #### 5 8410-2 ####[facility] LABIA [id number] [place] [address] [place] MCV (RBC) [Entitic vol] 93.8 fL Normal 80.0-100.0 [facility] Comment on above: Order Comment: Speci men Type: BLOOD SPECIMENOrdering Facility: [facility] Address: [address] [place] [address] Performed By: #### 5 8410-2 ####[facility] LABCLIA [id number] [place] [address] [place] Nucleated RBC (Bld) [#/Vol] 10*3/uL Normal <0.01 [facility] Comment on above: Order Comment: Speci men Type: BLOOD SPECIMENOrdering Facility: [facility] Address: [address] [place] [address] Performed By: #### 5 8410-2 ####[facility] LABCLIA [id number] [place] [address] [place] Platelet mean volume (Bld) [Entitic vol] 10.3 fL Normal 9.0-12.7 [facility] Comment on above: Order Comment: Speci men Type: BLOOD SPECIMENOrdering Facility: [facility] Address: [address] [place] [address] Performed By: #### 5 8410-2 ####[facility] LABIA [id number] [place] [address] [place] Platelets (Bld) [#/Vol] 276 10*3/uL Normal 150-400 [facility] Comment on above: Order Comment: Speci men Type: BLOOD SPECIMENOrdering Facility: [facility] Address: [address] [place] [address] Performed By: #### 5 8410-2 ####[facility] LABIA [id number] [place] [address] [place] RBC (Bld) [#/Vol] 4.20 10*6/uL Normal 3.90-5.20 [facility] Comment on above: Order Comment: Speci men Type: BLOOD SPECIMENOrdering Facility: [facility] Address: [address] [place] [address] Performed By: #### 5 8410-2 ####[facility] LABIA [id number] [place] [address] [place] WBC (Bld) [#/Vol] 13.45 10*3/uL High 3.70-11.00 [facility] Comment on above: Order Comment: Speci men Type: BLOOD SPECIMENOrdering Facility: [facility] Address: [address] [place] [address] Performed By: #### 5 8410-2 ####[facility] LABIA [id number] [place] [address] [place] ANES POSTPROC EVALon 024 ANES POSTPROC EVAL Normal [facility] ANES PRE-OPon 09-04-2023 ANES PRE-OP Normal [facility] BRIEF OP NOTon 09-04-2023 BRIEF OP NOT Normal [facility] NURSING PROGon 09-04-2023 NURSING PROG Normal [facility] OPERATIVE NOon 09-04-2023 OPERATIVE NO Normal [facility] SURGICAL PATHOLOGYon 024 CASE REPORT Normal [facility] Comment on above: Order Comment: Speci men Type: TISSUE SPECIMENOrdering Facility: [facility] Address: [address] [place] [address] Result Comment: Surg ical Pathology Report Case: [id number] Provider: Heather Castillo MD Collected: 09/04/2023 09:44 AMOrdering Location: Admitting Received: 09/04/2023 02:23 PMPathologist: Maria Alejandra Haro MDSpecimens: A) - AXILLARY CONTENTS LEFT B) - SKIN EXCISION, additional left breast skin Performed By: #### S ####[facility] LABIA [id number] [place] [address] [place] CLINICAL HISTORY Normal [facility] Comment on above: Order Comment: Alison mccain Type: TISSUE SPECIMENOrdering Facility: [facility] Address: [address] [place] [address] Result Comment: Pre- op diagnosis:Invasive lobular carcinoma of breast in female (HCC) [C50.919] Performed By: #### S ####[facility] LABCLIA [id number] [place] [address] [place] FINAL DIAGNOSIS Normal [facility] Comment on above: Order Comment: Speci kalyn Type: TISSUE SPECIMENOrdering Facility: [facility] Address: [address] [place] [address] Result Comment: A. L eft axilla, dissection [...] prior procedure site. Performed By: #### S ####[facility] LABCLIA [id number] [address] OF [facility] FINAL PERFORMING LAB Normal [facility] Comment on above: Order Comment: Speci men Type: TISSUE SPECIMENOrdering Facility: [facility] Address: [address] [place] [address] Result Comment: Diag nostic interpretation performed at , [facility] [place] [address] CLIA# [id number] Director: Amor Eisenberg M.D. Performed By: #### S ####[facility] LABCLIA [id number] [address] GROSS DESCRIPTION Normal [facility] Comment on above: Order Comment: Speci men Type: TISSUE SPECIMENOrdering Facility: [facility] Address: [address] [place] [address] Result Comment: A. A XILLARY CONTENTS LEFTReceived fresh labeled axillary contents left are multiple parekr, soft fibroadipose tissue segments aggregating to 9 x 6.5 x 2.4 cm. Palpation and dissection reveals multiple possible lymph nodes ranging from 0.2 x 0.2 x 0.2 cm to 4 x 2.3 x 1.7 cm. [employer]ning [employer]airer sections, to include all possible lymph nodes, [...] fibrous tissue. No lesions are grossly appreciated. [employer] Awning [employer]airer sections, to include skin, are submitted in 2 cassettes. The specimen is removed from the patient 12:21 PM on 09/04/2023 and placed in formalin at 3:37 PM on 09/04/2023.Gross examination performed at , [facility] [place] [address] CLIA#[id number] September 04, 2023 3:38 PM Performed By: #### S ####[facility] [id number] [place] [address] [place] VENOUS BLOOD GASES WITH IONI ZED MAGNESIUMon 09-04-2023 Base excess Calc (BldV) [Moles/Vol] 0 mmol/L Normal 0-2 [facility] Comment on above: Order Comment: Speci men Type: VENOUS BLOOD SPECIMENOrdering Facility: [facility] Address: [address] [place] [address] Performed By: #### V ALLMG ####[facility] LABIA [id number] [place] [address] [place] Calcium.ionized (Bld) [Mass/Vol] 1.15 mmol/L Normal 1.08-1.30 [facility] Comment on above: Order Comment: Speci men Type: VENOUS BLOOD SPECIMENOrdering Facility: [facility] Address: [address] [place] [address] Performed By: #### V ALLMG ####[facility] LABCLIA [id number] [place] [address] [place] Calcium.ionized adjusted to pH 7.4 (BldA) [Moles/Vol] 1.11 mmol/L Normal 1.08-1.30 [facility] Comment on above: Order Comment: Speci men Type: VENOUS BLOOD SPECIMENOrdering Facility: [facility] Address: [address] [place] [address] Performed By: #### V ALLMG ####[facility] LABCLIA [id number] [place] [address] [place] Carboxyhemoglobin (BldV) [Mass fraction] 1.4 % Normal 0.0-2.0 [facility] Comment on above: Order Comment: Speci men Type: VENOUS BLOOD SPECIMENOrdering Facility: [facility] Address: [address] [place] [address] Result Comment: Carb oxyhemoglobin Reference Range for Smokers: 2.0-8.0% Performed By: #### V ALLMG ####[facility] LABCLIA [id number] [place] [address] [place] CO2 (BldV) [Partial pressure] 50 mm[Hg] Normal 42-55 [facility] Comment on above: Order Comment: Speci men Type: VENOUS BLOOD SPECIMENOrdering Facility: [facility] Address: [address] [place] [address] Performed By: #### V ALLMG ####[facility] LABCLIA [id number] [place] [address] [place] CO2 adjusted to patient's actual temperature (BldV) [Partial pressure] 50 mmHg Normal 42-55 [facility] Comment on above: Order Comment: Speci men Type: VENOUS BLOOD SPECIMENOrdering Facility: [facility] Address: [address] [place] [address] Performed By: #### V ALLMG ####[facility] LABCLIA [id number] [place] [address] [place] Glucose [Mass/Vol] 186 mg/dL High 60-105 [facility] Comment on above: Order Comment: Speci men Type: VENOUS BLOOD SPECIMENOrdering Facility: [facility] Address: [address] [place] [address] Performed By: #### V ALLMG ####[facility] LABCLIA [id number] [place] [address] [place] HCO3 (Bld) [Moles/Vol] 26 mmol/L Normal 24-28 [facility] Comment on above: Order Comment: Speci men Type: VENOUS BLOOD SPECIMENOrdering Facility: [facility] Address: [address] [place] [address] Performed By: #### V ALLMG ####[facility] LABCLIA [id number] [place] [address] [place] Hematocrit (Bld) [Volume fraction] 47.0 % High 36.0-46.0 [facility] Comment on above: Order Comment: Speci men Type: VENOUS BLOOD SPECIMENOrdering Facility: [facility] Address: [address] [place] [address] Performed By: #### V ALLMG ####[facility] LABCLIA [id number] [place] [address] [place] Hemoglobin (Bld) [Mass/Vol] 15.3 g/dL Normal 11.5-15.5 [facility] Comment on above: Order Comment: Speci men Type: VENOUS BLOOD SPECIMENOrdering Facility: [facility] Address: [address] [place] [address] Performed By: #### V ALLMG ####[facility] LABCLIA [id number] [place] [address] [place] Lactate [Moles/Vol] 2.4 mmol/L High 0.5-2.2 [facility] Comment on above: Order Comment: Speci men Type: VENOUS BLOOD SPECIMENOrdering Facility: [facility] Address: [address] [place] [address] Performed By: #### V ALLMG ####[facility] LABCLIA [id number] [place] [address] [place] Magnesium [Moles/Vol] 0.53 mmol/L Normal 0.45-0.60 [facility] Comment on above: Order Comment: Speci men Type: VENOUS BLOOD SPECIMENOrdering Facility: [facility] Address: [address] [place] [address] Performed By: #### V ALLMG ####[facility] LABCLIA [id number] [place] [address] [place] Methemoglobin (Bld) [Mass fraction] 0.8 % Normal 0.0-1.5 [facility] Comment on above: Order Comment: Speci men Type: VENOUS BLOOD SPECIMENOrdering Facility: [facility] Address: [address] [place] [address] Performed By: #### V ALLMG ####[facility] LABCLIA [id number] [place] [address] [place] Oxygen (BldV) [Partial pressure] 50 mm[Hg] High 35-45 [facility] Comment on above: Order Comment: Speci men Type: VENOUS BLOOD SPECIMENOrdering Facility: [facility] Address: [address] [place] [address] Performed By: #### V ALLMG ####[facility] LABCLIA [id number] [place] [address] [place] Oxygen adjusted to patient's actual temperature (BldV) [Partial pressure] 50 mmHg High 35-45 [facility] Comment on above: Order Comment: Speci men Type: VENOUS BLOOD SPECIMENOrdering Facility: [facility] Address: [address] [place] [address] Performed By: #### V ALLMG ####[facility] LABCLIA [id number] [place] [address] [place] Oxygen saturation in Venous blood 81 % Normal 60-85 [facility] Comment on above: Order Comment: Speci men Type: VENOUS BLOOD SPECIMENOrdering Facility: [facility] Address: [address] [place] [address] Performed By: #### V ALLMG ####[facility] LABCLIA [id number] [place] [address] [place] Oxyhemoglobin (BldV) [Mass fraction] 79 % Normal 60-85 [facility] Comment on above: Order Comment: Speci men Type: VENOUS BLOOD SPECIMENOrdering Facility: [facility] Address: [address] [place] [address] Performed By: #### V ALLMG ####[facility] LABCLIA [id number] [place] [address] [place] pH (BldV) 7.33 [pH] Normal 7.32-7.42 [facility] Comment on above: Order Comment: Speci men Type: VENOUS BLOOD SPECIMENOrdering Facility: [facility] Address: [address] [place] [address] Performed By: #### V ALLMG ####[facility] LABCLIA [id number] [place] [address] [place] pH adjusted to patient's actual temperature (BldV) 7.33 Normal 7.32-7.42 [facility] Comment on above: Order Comment: Speci men Type: VENOUS BLOOD SPECIMENOrdering Facility: [facility] Address: [address] [place] [address] Performed By: #### V ALLMG ####[facility] LABCLIA [id number] [place] [address] [place] Potassium [Moles/Vol] 3.7 mmol/L Normal 3.5-5.0 [facility] Comment on above: Order Comment: Speci men Type: VENOUS BLOOD SPECIMENOrdering Facility: [facility] Address: [facility] [place] [address] Performed By: #### V ALLMG ####[facility] LABCLIA [id number] [place] [address] [place] Sodium [Moles/Vol] 138 mmol/L Normal 136-144 [facility] Comment on above: Order Comment: Speci men Type: VENOUS BLOOD SPECIMENOrdering Facility: [facility] Address: [address] [place] [address] Performed By: #### V ALLMG ####[facility] LABCLIA [id number] [place] [address] [place] CNOVon 08-29-2023 CNOV Normal [facility] CNPNon 08-16-2023 CNPN Normal [facility] CNPNon 08-12-2023 CNPN Normal [facility] CNPNon 08-09-2023 CNPN Normal [facility] CNOVon 08-06-2023 CNOV Normal [facility] CNOV Normal [facility] CNOVSPon 08-06-2023 CNOVSP Normal [facility] CASE MANAGEMon 07-30-2023 CASE MANAGEM Normal [facility] CASE MGT INIT ASSESon 2022 CASE MGT INIT ASSES Normal [facility] ANES POSTPROC EVALon 023 ANES POSTPROC EVAL Normal [facility] ANES PRE-OPon 07-29-2023 ANES PRE-OP Normal [facility] NM INJ SENT NODE BREAST LTon 07-29-2023 NM INJ SENT NODE BREAST LT Normal [facility] NM INJ SENTINEL NODE BREAST LEFTon 07-29-2023 NURSING PROGon 07-29-2023 NURSING PROG Normal [facility] OPERATIVE NOon 07-29-2023 OPERATIVE NO Normal [facility] SURGICAL PATHOLOGYon 023 BLOCK FOR ADDITIONAL BIOMARKERS/MOLECULAR STUDIES A7 Normal [facility] Comment on above: Order Comment: Speci men Type: TISSUE SPECIMENOrdering Facility: [facility] Address: [address] [place] [address] Performed By: #### S ####[facility] LABCLIA [id number] [place] [address] [place] CASE REPORT Normal [facility] Comment on above: Order Comment: Speci men Type: TISSUE SPECIMENOrdering Facility: [facility] Address: [address] [place] [address] Result Comment: Surg ica Pathology Report Case: [id number] Provider: Heather Castillo MD Collected: 07/29/2023 11:29 [...] left breast skin Performed By: #### S ####[facility] LABIA [id number] [place] [address] [place] CLINICAL HISTORY Normal [facility] Comment on above: Order Comment: Speci men Type: TISSUE SPECIMENOrdering Facility: [facility] Address: [address] [place] [address] Result Comment: Pre- op diagnosis:Invasive lobular carcinoma of breast in female (HCC) [C50.919] Performed By: #### S ####[facility] LABIA [id number] [place] [address] [place] DIAGNOSIS COMMENT Normal [facility] Comment on above: Order Comment: Speci men Type: TISSUE SPECIMENOrdering Facility: [facility] Address: [address] [place] [address] Result Comment: The following immunohistochemical stains were performed to help establish the diagnosis:- Keratin AE1/3 (block E1): Highlights isolated tumor cells in lymph nodeThe preliminary findings were communicated to Dr. Celia Donaldson, Dr. Sandro Rehman, and Juliet Cai NP by Dr. Saravanan Danielle via secure email on 16/07/2023 at 10:11 a.m.Laboratory Developed Test (LDT) Disclaimer:Performance characteristics of immunohistochemical, immunofluorescent and chromogenic in-situ hybridization tests have been determined by the performing laboratory within ???s [facility] [place] ([facility], [facility], [facility], [facility], [facility], [facility], or [facility]) in a manner consistent with CLIA requirements. One or more of these tests have not been cleared or approved by the FDA. [facility] is regulated under CLIA as qualified to perform high-complexity testing. These tests are used for clinical purposes. They should not be regarded as investigational or for research. Positive and negative controls stain appropriately. Performed By: #### S ####[facility] LABCLIA [id number] [place] [address] [place] FINAL DIAGNOSIS Normal [facility] Comment on above: Order Comment: Speci men Type: TISSUE SPECIMENOrdering Facility: [facility] Address: [address] [place] [address] Result Comment: A. L eft breast, mastectomy:- [...] lymph node, 14 mm, with extranodal extension (08/26).C. Left axillary sentinel lymph node #2, excision:Metastatic carcinoma in one lymph node, 4 mm (1/1).D. Left axillary sentinel lymph node #3, excision:Metastatic carcinoma in one lymph node, 18 mm, with extranodal extension (1/1).E. Left axillary sentinel lymph node #4, excision:Isolated tumor cells in one lymph node (i+/1).F. Left breast, medial tissue, excision:Benign skin and fibroadipose tissue, negative for carcinoma.G. Left breast skin, excision:Benign skin, negative for carcinoma. Performed By: #### S ####[facility] LABCLIA [id number] [address] OF [facility] FINAL PERFORMING LAB Normal [facility] Comment on above: Order Comment: Speci men Type: TISSUE SPECIMENOrdering Facility: [facility] Address: [address] [place] [address] Result Comment: Diag nostic interpretation performed at , [address] [address] CLIA# [id number] Director: Amor Eisenberg M.D. Performed By: #### S ####[facility] [id number] [address] GROSS DESCRIPTION Normal [facility] Comment on above: Order Comment: Speci men Type: TISSUE SPECIMENOrdering Facility: [facility] Address: [address] [place] [address] Result Comment: A. B REAST MASTECTOMY LEFTReceived [...] and was placed in formalin at 12:50 PM.[employer] Awning [employer]airer sections are submitted as follows:A1-A13: mass in lower outer quadrant section along the longest linear dimension from lateral to medial (nonmarginal)A14: Mass to closest deep exjfpcZ70: Mass to closest inferior radial getesiD63: Closest superior radial xzujgbD86: Fabric Awning Repairer slice lateral to mass (nonmarginal)A18: Fabric Awning Repairer slice medial to mass (additional inferior radial margin)A19: Nonmarginal upper outer jtsexemuV71: Nonmarginal lower outer eychbmihN67: Nonmarginal upper inner mhsfhtoyR64: Nonmarginal lower inner axhekwwtS20-M74: Nipple, entirely submittedGross examination performed at [facility], [facility] [place]#[id number] 07/30/23 11:06 AMAfter initial microscopic evaluation, additional sections are submitted as follows:A27-29 nonmarginal tissue directly lateral to mass, lower outer quadrant (submitted in sequence from most medial to most lateral)A30-32 nonmarginal tissue directly medial to mass, lower inner quadrant (submitted in sequence from most lateral to the most medial)[facility] August 01, 2023 4:10 PMGross examination performed at , [facility] [place] [address]After microscopic evaluation, additional sections are submitted as follows:A33-A34: Consecutive sections medial to Z39S20-E34: Additional sections of posterior margin near rjbzjC36-E11: Additional sections of anterior margin near tumor, inferior to skinGross examination performed at [facility], [facility] [place] [address] CLIA#[id number] 08/05/23 3:55 PMB. SENTINEL LYMPH NODE LEFTReceived [...] 29, 2023 1:27 PMGross examination performed at , [facility] [place], [place] [address]C. SENTINEL LYMPH NODE LEFTReceived in formalin labeled axillary node #2 is an excision of rubbery fibroadipose tissue measuring 3.6 x 3.4 x 1.5 cm with an ovoid, pink-yellow, rubbery lymph node measuring 3 x 2.1 x 0.4 cm. The cut surfaces are rubbery and glistening.Entirely submitted as follows:C1-C2: Entire sectioned lymph nodeC3: Residual adipose tissueALM July 29, 2023 1:30 PMGross examination performed at , [facility] [facility], [place] [address]D. SENTINEL LYMPH NODE LEFTReceived in formalin labeled [...] 29, 2023 1:32 PMGross examination performed at , [facility] [place], [place] [address]E. SENTINEL LYMPH NODE LEFTReceived in formalin labeled [...] 29, 2023 1:35 PMGross examination performed at , [facility], [place] [address]A. BREAST MARGIN LEFTReceived in formalin labeled medial [...] marginsF9: Slice 9 anterior, posterior, superior, inferior shkwjgmE93: Slice 10 lateral marginALM July 29, 2023 1:56 PMGross examination performed at , [address] [place], [place] [address]U. SKIN EXCISIONReceived in formalin labeled left breast skin are multiple irregularly shaped, pink-parker, soft skin excisions aggregating to 3.5 x 2.3 x 0.4 cm. There are no obvious skin lesions. [employer]airer sections are submitted in cassettes G1-G2.BRUCE July 29, 2023 1:59 PMGross examination performed at , [address] [place] [address] Performed By: #### S ####[facility] LABCLIA [id number] [address]YA[id number] [address] [place] SYNOPTIC REPORT Normal [facility] Comment on above: Order Comment: Speci men Type: TISSUE SPECIMENOrdering Facility: [facility] Address: [address] [place] [address] Result Comment: INVA SIVE CARCINOMA OF THE BREAST: ResectionINVASIVE CARCINOMA OF THE BREAST: EXCISION - All Uvznybxna4sn Edition - Protocol posted: 11/14/2022SPECIMEN Procedure: Total mastectomy Specimen Laterality: LeftTUMOR Tumor Site: Lower outer quadrant to central Histologic Type: Invasive lobular carcinoma Histologic Grade (Angela Histologic Score): Glandular (Acinar) / Tubular Differentiation: [...] Examined (sentinel and non-sentinel): 4 Number of [place] Nodes Examined: 4pTNM CLASSIFICATION (AJCC 8th Edition) [...] on (outside case, slides reviewed at the ) Comment(s): Invasive lobular carcinoma is present in 21 consecutive sampled sections in the medial-lateral dimension, measuring at least 63 mm. Performed By: #### S ####[facility] LABIA [id number] [place] [address] [place] 25(OH)D3 [facility] 2022 25-hydroxyvitamin D3 [Mass/Vol] 69.2 ng/mL Normal 31.0-80.0 [facility] Comment on above: Order Comment: Speci men Type: BLOOD SPECIMENOrdering Facility: [facility] Address: [address] [place] [address] Result Comment: Clas sification of 25 [place] Vitamin D status:Deficiency/Insufficiency: < or = 30 ng/ml.Sufficiency/Optimal Levels: 31-80 ng/mLToxicity: > 100 ng/mL.Test performed by chemiluminescent immunoassay. Performed By: #### 1 989-3 ####[facility] [id number] [place] [address] [place] CBC W Auto Differential pane l (Bld)on 07-26-2023 Basophils (Bld) [#/Vol] 0.03 10*3/uL Normal <0.11 [facility] Comment on above: Order Comment: Speci men Type: BLOOD SPECIMENOrdering Facility: [facility] Address: [address] [place] [address] Performed By: #### 5 7021-8 ####[facility] [id number] [place] [address] [place] Basophils/100 WBC (Bld) 0.4 % Normal [facility] Comment on above: Order Comment: Speci men Type: BLOOD SPECIMENOrdering Facility: [facility] Address: [address] [place] [address] Performed By: #### 5 7021-8 ####[facility] LABCLIA [id number] [place] [address] [place] Differential cell count method Nom (Bld) Auto Normal [facility] Comment on above: Order Comment: Speci men Type: BLOOD SPECIMENOrdering Facility: [facility] Address: [address] [place] [address] Performed By: #### 5 7021-8 ####[facility] LABCLIA [id number] [place] [address] [place] Eosinophils (Bld) [#/Vol] 0.21 10*3/uL Normal <0.46 [facility] Comment on above: Order Comment: Speci men Type: BLOOD SPECIMENOrdering Facility: [facility] Address: [address] [place] [address] Performed By: #### 5 7021-8 ####[facility] LABCLIA [id number] [place] [address] [place] Eosinophils/100 WBC (Bld) 2.5 % Normal [facility] Comment on above: Order Comment: Speci men Type: BLOOD SPECIMENOrdering Facility: [facility] Address: [address] [place] [address] Performed By: #### 5 7021-8 ####[facility] LABCLIA [id number] [place] [address] [place] Erythrocyte distribution width (RBC) [Ratio] 14.8 % Normal 11.5-15.0 [facility] Comment on above: Order Comment: Speci men Type: BLOOD SPECIMENOrdering Facility: [facility] Address: [address] [place] [address] Performed By: #### 5 7021-8 ####[facility] LABCLIA [id number] [place] [address] [place] Hematocrit (Bld) [Volume fraction] 43.2 % Normal 36.0-46.0 [facility] Comment on above: Order Comment: Speci men Type: BLOOD SPECIMENOrdering Facility: [facility] Address: [address] [place] [address] Performed By: #### 5 7021-8 ####[facility] LABCLIA [id number] [place] [address] [place] Hemoglobin (Bld) [Mass/Vol] 14.1 g/dL Normal 11.5-15.5 [facility] Comment on above: Order Comment: Speci men Type: BLOOD SPECIMENOrdering Facility: [facility] Address: [address] [place] [address] Performed By: #### 5 7021-8 ####[facility] LABIA [id number] [place] [address] [place] Immature granulocytes (Bld) [#/Vol] 0.03 10*3/uL Normal <0.10 [facility] Comment on above: Order Comment: Speci men Type: BLOOD SPECIMENOrdering Facility: [facility] Address: [address] [place] [address] Performed By: #### 5 7021-8 ####[facility] LABIA [id number] [place] [address] [place] Immature granulocytes/100 WBC (Bld) 0.4 % Normal [facility] Comment on above: Order Comment: Speci men Type: BLOOD SPECIMENOrdering Facility: [facility] Address: [address] [place] [address] Performed By: #### 5 7021-8 ####[facility] LABIA [id number] [place] [address] [place] Lymphocytes (Bld) [#/Vol] 1.90 10*3/uL Normal 1.00-4.00 [facility] Comment on above: Order Comment: Speci men Type: BLOOD SPECIMENOrdering Facility: [facility] Address: [address] [place] [address] Performed By: #### 5 7021-8 ####[facility] LABCLIA [id number] [place] [address] [place] Lymphocytes/100 WBC (Bld) 22.3 % Normal [facility] Comment on above: Order Comment: Speci men Type: BLOOD SPECIMENOrdering Facility: [facility] Address: [address] [place] [address] Performed By: #### 5 7021-8 ####[facility] LABCLIA [id number] [place] [address] [place] MCH (RBC) [Entitic mass] 30.9 pg Normal 26.0-34.0 [facility] Comment on above: Order Comment: Speci men Type: BLOOD SPECIMENOrdering Facility: [facility] Address: [address] [place] [address] Performed By: #### 5 7021-8 ####[facility] LABIA [id number] [place] [address] [place] MCHC (RBC) [Mass/Vol] 32.6 g/dL Normal 30.5-36.0 [facility] Comment on above: Order Comment: Speci men Type: BLOOD SPECIMENOrdering Facility: [facility] Address: [address] [place] [address] Performed By: #### 5 7021-8 ####[facility] LABIA [id number] [place] [address] [place] MCV (RBC) [Entitic vol] 94.7 fL Normal 80.0-100.0 [facility] Comment on above: Order Comment: Speci men Type: BLOOD SPECIMENOrdering Facility: [facility] Address: [address] [place] [address] Performed By: #### 5 7021-8 ####[facility] LABIA [id number] [place] [address] [place] Monocytes (Bld) [#/Vol] 0.65 10*3/uL Normal <0.87 [facility] Comment on above: Order Comment: Speci men Type: BLOOD SPECIMENOrdering Facility: [facility] Address: [address] [place] [address] Performed By: #### 5 7021-8 ####[facility] LABCLIA [id number] [place] [address] [place] Monocytes/100 WBC (Bld) 7.6 % Normal [facility] Comment on above: Order Comment: Speci men Type: BLOOD SPECIMENOrdering Facility: [facility] Address: [address] [place] [address] Performed By: #### 5 7021-8 ####[facility] LABCLIA [id number] [place] [address] [place] Neutrophils (Bld) [#/Vol] 5.69 10*3/uL Normal 1.45-7.50 [facility] Comment on above: Order Comment: Speci men Type: BLOOD SPECIMENOrdering Facility: [facility] Address: [address] [place] [address] Performed By: #### 5 7021-8 ####[facility] LABCLIA [id number] [place] [address] [place] Neutrophils/100 WBC (Bld) 66.8 % Normal [facility] Comment on above: Order Comment: Speci men Type: BLOOD SPECIMENOrdering Facility: [facility] Address: [address] [place] [address] Performed By: #### 5 7021-8 ####[facility] LABCLIA [id number] [place] [address] [place] Nucleated RBC (Bld) [#/Vol] 10*3/uL Normal <0.01 [facility] Comment on above: Order Comment: Speci men Type: BLOOD SPECIMENOrdering Facility: [facility] Address: [address] [place] [address] Performed By: #### 5 7021-8 ####[facility] LABCLIA [id number] [place] [address] [place] Nucleated RBC/100 WBC (Bld) [Ratio] 0.0 /100 WBC Normal [facility] Comment on above: Order Comment: Speci men Type: BLOOD SPECIMENOrdering Facility: [facility] Address: [address] [place] [address] Performed By: #### 5 7021-8 ####[facility] LABCLIA [id number] [place] [address] [place] Platelet mean volume (Bld) [Entitic vol] 10.1 fL Normal 9.0-12.7 [facility] Comment on above: Order Comment: Speci men Type: BLOOD SPECIMENOrdering Facility: [facility] Address: [address] [place] [address] Performed By: #### 5 7021-8 ####[facility] LABIA [id number] [place] [address] [place] Platelets (Bld) [#/Vol] 314 10*3/uL Normal 150-400 [facility] Comment on above: Order Comment: Speci men Type: BLOOD SPECIMENOrdering Facility: [facility] Address: [address] [place] [address] Performed By: #### 5 7021-8 ####[facility] LABIA [id number] [place] [address] [place] RBC (Bld) [#/Vol] 4.56 10*6/uL Normal 3.90-5.20 [facility] Comment on above: Order Comment: Speci men Type: BLOOD SPECIMENOrdering Facility: [facility] Address: [address] [place] [address] Performed By: #### 5 7021-8 ####[facility] LABIA [id number] [place] [address] [place] WBC (Bld) [#/Vol] 8.51 10*3/uL Normal 3.70-11.00 [facility] Comment on above: Order Comment: Speci men Type: BLOOD SPECIMENOrdering Facility: [facility] Address: [address] [place] [address] Performed By: #### 5 7021-8 ####[facility] LABCLIA [id number] [place] [address] [place] Comprehensive metabolic 2000 panelon 07-26-2023 Albumin [Mass/Vol] 4.2 g/dL Normal 3.9-4.9 [facility] Comment on above: Order Comment: Speci men Type: BLOOD SPECIMENOrdering Facility: [facility] Address: [address] [place] [address] Performed By: #### 2 4323-8 ####[facility] LABCLIA [id number] [place] [address] [place] ALP [Catalytic activity/Vol] 95 U/L Normal 34-123 [facility] Comment on above: Order Comment: Speci men Type: BLOOD SPECIMENOrdering Facility: [facility] Address: [address] [place] [address] Performed By: #### 2 4323-8 ####[facility] LABCLIA [id number] [place] [address] [place] ALT [Catalytic activity/Vol] 31 U/L Normal 7-38 [facility] Comment on above: Order Comment: Speci men Type: BLOOD SPECIMENOrdering Facility: [facility] Address: [address] [place] [address] Performed By: #### 2 4323-8 ####[facility] LABCLIA [id number] [place] [address] [place] Anion gap [Moles/Vol] 13 mmol/L Normal 9-18 [facility] Comment on above: Order Comment: Speci men Type: BLOOD SPECIMENOrdering Facility: [facility] Address: [address] [place] [address] Performed By: #### 2 4323-8 ####[facility] LABCLIA [id number] [place] [address] [place] AST [Catalytic activity/Vol] 24 U/L Normal 13-35 [facility] Comment on above: Order Comment: Speci men Type: BLOOD SPECIMENOrdering Facility: [facility] Address: [address] [place] [address] Performed By: #### 2 4323-8 ####[facility] LABCLIA [id number] [place] [address] [place] Bilirubin [Mass/Vol] 0.5 mg/dL Normal 0.2-1.3 [facility] Comment on above: Order Comment: Speci men Type: BLOOD SPECIMENOrdering Facility: [facility] Address: [address] [place] [address] Performed By: #### 2 4323-8 ####[facility] LABCLIA [id number] [place] [address] [place] Calcium [Mass/Vol] 9.5 mg/dL Normal 8.5-10.2 [facility] Comment on above: Order Comment: Speci men Type: BLOOD SPECIMENOrdering Facility: [facility] Address: [address] [place] [address] Performed By: #### 2 4323-8 ####[facility] LABCLIA [id number] [place] [address] [place] Chloride [Moles/Vol] 104 mmol/L Normal 97-105 [facility] Comment on above: Order Comment: Speci men Type: BLOOD SPECIMENOrdering Facility: [facility] Address: [address] [place] [address] Performed By: #### 2 4323-8 ####[facility] LABCLIA [id number] [place] [address] [place] CO2 [Moles/Vol] 24 mmol/L Normal 22-30 [facility] Comment on above: Order Comment: Speci men Type: BLOOD SPECIMENOrdering Facility: [facility] Address: [address] [place] [address] Performed By: #### 2 4323-8 ####[facility] LABCLIA [id number] [place] [address] [place] Creatinine [Mass/Vol] 0.79 mg/dL Normal 0.58-0.96 [facility] Comment on above: Order Comment: Speci men Type: BLOOD SPECIMENOrdering Facility: [facility] Address: [address] [place] [address] Performed By: #### 2 4323-8 ####[facility] LABCLIA [id number] [place] [address] [place] Creatinine and Glomerular filtration rate.predicted panel (S/P/Bld) 82 mL/min/1.73m??? Normal >=60 [facility] Comment on above: Order Comment: Speci men Type: BLOOD SPECIMENOrdering Facility: [facility] Address: [address] [place] [address] Result Comment: Cristal mated Glomerular Filtration Rate [...] actual GFR. Performed By: #### 2 4323-8 ####[facility] LABCLIA [id number] [place] [address] [place] Glucose [Mass/Vol] 101 mg/dL High 74-99 [facility] Comment on above: Order Comment: Speci men Type: BLOOD SPECIMENOrdering Facility: [facility] Address: [address] [place] [address] Result Comment: The [place] [employer] (ADA) provides guidance for cutoff [...] Standards of Medical Care in Diabetes 2016, [place] [employer]. Diabetes Care. 2016.39(Suppl 1). Performed By: #### 2 4323-8 ####[facility] LABCLIA [id number] [place] [address] [place] Potassium [Moles/Vol] 4.0 mmol/L Normal 3.7-5.1 [facility] Comment on above: Order Comment: Speci men Type: BLOOD SPECIMENOrdering Facility: [facility] Address: [address] [place] [address] Performed By: #### 2 4323-8 ####[facility] LABCLIA [id number] [place] [address] [place] Protein [Mass/Vol] 6.7 g/dL Normal 6.3-8.0 [facility] Comment on above: Order Comment: Speci men Type: BLOOD SPECIMENOrdering Facility: [facility] Address: [address] [place] [address] Performed By: #### 2 4323-8 ####[facility] LABCLIA [id number] [place] [address] [place] Sodium [Moles/Vol] 141 mmol/L Normal 136-144 [facility] Comment on above: Order Comment: Speci men Type: BLOOD SPECIMENOrdering Facility: [facility] Address: [address] [place] [address] Performed By: #### 2 4323-8 ####[facility] LABCLIA [id number] [place] [address] [place] Urea nitrogen [Mass/Vol] 15 mg/dL Normal 7-21 [facility] Comment on above: Order Comment: Speci men Type: BLOOD SPECIMENOrdering Facility: [facility] Address: [address] [place] [address] Performed By: #### 2 4323-8 ####[facility] LABCLIA [id number] [place] [id number] [place] HISTORY PHYSICALon HISTORY PHYSICAL Normal [facility] MISC SEND OUT TST 1on 2022 REFERRAL LAB 1 [employer] Normal [facility] Comment on above: Order Comment: Speci men Type: BLOOD SPECIMENOrdering Facility: [facility] Address: [address] [place] [address] Performed By: #### M ISC1 ####NON-INTERFACED REF LABSCLIA SEE SCANNED RESULTS TEST 1 Multi Cancer Panel Normal [facility] Comment on above: Order Comment: Speci men Type: BLOOD SPECIMENOrdering Facility: [facility] Address: [address] [place] [address] Performed By: #### M ISC1 ####NON-INTERFACED REF LABSCLIA SEE SCANNED RESULTS TEST RESULTS 1 View results in Scan isela Documents link when available. Normal [facility] Comment on above: Order Comment: Speci men Type: BLOOD SPECIMENOrdering Facility: [facility] Address: [address] [place] [address] Performed By: #### M [id number] ####NON-INTERFACED REF LABSCLIA SEE SCANNED RESULTS CNPNon 07-24-2023 CNPN Normal [facility] CNCNPATEDon 07-23-2023 CNCNPATED Normal [facility] CNOVon 07-23-2023 CNOV Normal [facility] CNOVSPon 07-23-2023 CNOVSP Normal [facility] CNPNon 07-23-2023 CNPN Normal [facility] TINO US AXILLA ONLY LTon 11-2 TINO US AXILLA ONLY LT Normal [facility] US AXILLA ONLY LEFTon 2022 OUTSIDE SURG PATH SLIDE REVI EWon 07-19-2023 CASE REPORT Normal [facility] Comment on above: Order Comment: Alison mccain Type: FORMALIN-FIXED PARAFFIN-EMBEDDED TISSUE SPECIMENOrdering Facility: AP Outside Review Address: , , Result Comment: Surg ical Pathology Report Case: [id number] Provider: Mendoza Yang MD Collected: 07/19/2023 04:11 PMOrdering Location: [facility] Received: 07/19/2023 04:10 PM [facility] LaboratoryPathologist: Arash Perez MDSpecimen: SLIDE(S), 9 SLIDES [id number] Performed By: #### L [id number] ####[facility] [id number] [address] DIAGNOSIS COMMENT Normal [facility] Comment on above: Order Comment: Alison mccain Type: FORMALIN-FIXED PARAFFIN-EMBEDDED TISSUE SPECIMENOrdering Facility: AP Outside Review Address: , , Result Comment: Immu noperoxidase studies for estrogen receptor (ER), progesterone receptor (MA), and HER2 were performed at an outside institution and provided for review. Immunostain results for the invasive carcinoma cells are as follows:ER: POSITIVE (80%, strong)MA: POSITIVE (5%, moderate)HER2 IHC: NEGATIVE (0)Controls react as expected Performed By: #### L [id number] ####[facility] LABIA [id number] [address] OF [facility] FINAL DIAGNOSIS Normal [facility] Comment on above: Order Comment: Speci men Type: FORMALIN-FIXED PARAFFIN-EMBEDDED TISSUE SPECIMENOrdering Facility: AP Outside Review Address: , , Result Comment: nereyda Monreal, core biopsy ([id number]; 06/19/2023):---Invasive lobular carcinoma, preliminary Angela grade 1 (of 3), measuring at least 4.5 mm in greatest dimension.---Please see comment. Performed By: #### L [id number] ####[facility] LABCLIA [id number] [address] STATES OF [facility] FINAL PERFORMING LAB Normal [facility] Comment on above: Order Comment: Speci men Type: FORMALIN-FIXED PARAFFIN-EMBEDDED TISSUE SPECIMENOrdering Facility: Outside Review Address: , , Result Comment: Diag nostic interpretation performed at , [address] [address] CLIA# [id number] Director: Amor Eisenberg M.D. Performed By: #### L [id number] ####[facility] LABCLIA [id number] [address] CNPNon 07-12-2023 CNPN Normal [facility] Activated partial thrombopla stin time (aPTT) in platelet poor plasma by coagulation aOrdered By: Janet Dillard on 02-28-2023 aPTT Coag (PPP) [Time] 27.6 s 25.1-36.5 [facility] Coagulation Profileon 2022 aPTT Coag (Bld) [Time] 27.6 s Normal 25.1-36.5 [facility] Comment on above: Result Comment: PERF ORMED BY: [address] [place] [address] PATHOLOGIST [employer] SOLANGE ANN M.D. Performed By: #### P P, PLT #### [address] INR Coag (PPP) [Relative time] 1.0 {INR} Normal [facility] Comment on above: Result Comment: INR [...] Performed By: #### P P, PLT #### [facility] [address] [place] [address] [place] PT Coag (PPP) [Time] 12.1 s Normal 9.0-12.9 [facility] Comment on above: Performed By: #### P P, PLT #### [facility] [address] [place] [address] [place] Lito 02-28-2023 L ------ Specimen: [id number] Received: 02/28/23 Status: MELODIE Barton Num: [id number] Spec Type: Cytology Subm Dr: Pat Roberts MD Tissues: A FNA SLIDES PATH (RIGHT THYROID LOBE) Procedures: HE/2, -, DIFF QWIK/5, PAPSTN/6 Age/ Patient Sex Location Account Attending Physician Minal Caputo 67/F [id number] Nikko Astorga DO SPEC NUM: [id number] RECD: 02/28/23 STATUS: MELODIE BARTON NUM: [id number] KATERINE: 02/28/23 [facility] DR: Pat Roberts MD ENTERED: 02/28/23 [facility] DR: Nikko Astorga DO SPEC TYPE: Cytology DEPT: CNG ENTERED BY: [id number] RECV BY: [id number] ORDERED: HE/2, -, DIFF QWIK/5, PAPSTN/6 ORDERED: HE/2, -, DIFF QWIK/5, PAPSTN/6 Pathological Diagnosis Thyroid nodule, right ultrasound-guided FNA and cytology: - Acellular specimen without follicular cells/groups, nondiagnostic specimen due to insufficient cellularity - [place] category I (TBS I). Clinical Information Thyroid [...] [id number] Received: 02/28/23 Status: MELODIE Barton Num: [id number] Spec Type: Cytology Subm Dr: Pat Roberts MD Tissues: A FNA SLIDES PATH (RIGHT THYROID LOBE) Procedures: HE/2, -, DIFF QWIK/5, PAPSTN/6 Patient: NessalucieMinal [id number] (Continued) Specimen: [id number] Received: 02/28/23 (Continued) Signed (signature on file) Tequila Sousa MD 03/01/23 1031 Specimen: [id number] Received: 02/28/23 Status: MELODIE Barton Num: [id number] Spec Type: Cytology Subm Dr: Pat Roberts MD Tissues: A FNA SLIDES PATH (RIGHT THYROID LOBE) Procedures: HE/2, -, DIFF QWIK/5, PAPSTN/6 Patient: Minal Caputo [id number] (Continued) Specimen: [id number] Received: 02/28/23 (Continued) Microscopic Description Two H E cell block slides reviewed. Ten smear slides and one ThinPrep slide received. Microscopic examination confirms the above diagnosis. CPT Codes 71113, 04984, 68900 Specimen: [id number] Received: 02/28/23 Status: MELODIE Barton Num: [id number] Spec Type: Cytology Subm Dr: Pat Roberts MD Tissues: A FNA SLIDES PATH (RIGHT THYROID LOBE) Procedures: HE/2, -, DIFF QWIK/5, PAPSTN/6 Patient: Minal Caputo [id number] (Continued) Signed (signature on file) Tequila Sousa MD 03/01/[address] [facility] Laboratory - CoagulationOrde red By: Janet Dillard on 02-28-2023 PT Coag (PPP) [Time] 12.1 s 9.0-12.9 [facility] Platelet Counton 02-28-2023 Platelets (Bld) [#/Vol] 304 10*3/uL Normal 150-450 [facility] Comment on above: Result Comment: PERF ORMED BY: [place] [address] PATHOLOGIST [employer] SOLANGE ANN M.D. Performed By: #### P P, PLT #### [address] Platelet poor plasma interna tional normalized ratio (INR) by coagulation assay (relatOrdered By: Janet Dillard on 02-28-2023 INR Coag (PPP) [Relative time] 1.0 {INR} [facility] Comment on above: INR Therapeutic Rang [...] Platelets (Bld) [#/Vol] 304 10*3/uL 150-450 [facility] US needle aspirationon 02-28 US needle aspiration [facility] [place] [address] [place] [address] Ultrasound Report Signed Patient: Minal Caputo MR#: [id number] : 1955 Acct:[id number] Age/Sex: 67 / F ADM Date: 02/28/23 Loc: Room: Type: [facility] Attending Dr: Nikko Astorga DO Ordering Provider: Nikko Astorga DO Date of Service: 02/28/23 US/US needle aspiration: E04.1 Copies to: Nikko Astorga DO ULTRASOUND-GUIDED RIGHT THYROID NODULE BIOPSY CLINICAL DATA: Bilateral thyroid nodules on previous outside imaging COMPARISON: 03/29/2022 from . Real-time ultrasound evaluation of the thyroid was [...] Pat Roberts M.D.02/28/2023 3:33 PM Dictation Location: [place] [address] Tech: Betty Payne Transcribed By: ZULAY 02/28/23 1533 Dictated By: Pat Roberts MD 02/28/23 1524 Signed By: 02/28/23 1533 [facility] ANES POSTPROC EVALon 023 ANES POSTPROC EVAL HNO ID: [id number] Author: Suzanne Jacome MD Service: Anesthesiology Author [...] Jr., MD; Suzanne Jacome MD; Yoan Rivas APRN.CHANNEL MARKETING MANAGER; Judy Galdamez RN Responsible Provider: Suzanne Jacome [...] February 11, 2023 TIME: 11:41 AM CSN: [id number] [facility] ANES PRE-OPon 02-11-2023 ANES PRE-OP HNO ID: [id number] Author: Suzanne Jacome MD Service: Anesthesiology Author Type: Anesthesiologist Type: Anesthesia Preprocedure Evaluation Filed: 02/11/2023 10:02 AM Note Text: ANESTHESIOLOGY DAY OF SURGERY NOTE : 1955 Procedure Information Date/Time: 02/11/23 1030 Scheduled providers: Princess Begum Jr., MD; Suzanne Jacome MD; Yoan Rivas APRN.CHANNEL MARKETING MANAGER; Judy Galdamez RN Procedures: COLONOSCOPY SCREENING EGD [...] and consent discussed: yes. Patient / Responsible Republican agrees to proceed: yes Patient / Surrogate [...] February 11, 2023 TIME: 10:02 AM CSN: [id number] Normal [facility] Colonoscopyon 02-11-2023 Colonoscopy [facility] Gastrointestinal Endoscopy Patient Name: Minal Caputo Procedure Date: 02/11/2023 10:45 AM Date of : 1955 Admit Type: Outpatient Age: 67 Room: [facility] 02 Gender: Female Note Status: Finalized Attending MD: [...] or abscess without bleeding CPT copyright 2020 [employer]. All rights reserved. The codes documented in this report are preliminary and upon medical records coder review may be revised to meet current compliance requirements. Attending Participation: I personally performed the entire procedure. Scope In: 11:10:24 AM Scope Out: 11:20:04 AM MD Princess Schumacher Jr, MD 02/11/2023 11:22:51 AM This report has been signed electronically by Princess Begum Jr, MD Number of Addenda: 0 Note Initiated On: 02/11/2023 10:45 AM Estimated Blood Loss: Estimated blood loss: none. [facility] SURGICAL PATHOLOGYon 023 CASE REPORT [facility] Comment on above: Order Comment: Speci men Type: TISSUE SPECIMEN [facility] Address: [address] [place] [address] Result Comment: Surg ica Pathology Report Case: [id number] Authorizing Provider: Princess Begum Jr., MD Collected: 02/11/2023 11:03 AM Ordering Location: Procedures Received: 02/11/2023 01:14 PM Pathologist: Davin Herzog MD Specimen: FUNDUS (STOMACH) BIOPSY, fundic gland polyps Performed By: #### S #### [facility] CLIA [id number] [address] [place] [address] FINAL DIAGNOSIS Normal [facility] Comment on above: Order Comment: Speci men Type: TISSUE SPECIMEN [facility] Address: [address] [place] [address] Result Comment: Stom ach, polyps, biopsies: - Fundic gland polyps. JEL 02/12/2023 Performed By: #### S #### [facility] CLIA [id number] [address] [place] [address] STATES OF [place] FINAL PERFORMING LAB Normal [facility] Comment on above: Order Comment: Speci men Type: TISSUE SPECIMEN [facility] Address: [address] [address] Result Comment: Diag nostic interpretation performed at [facility], [address] [place] [address] CLIA# [id number] Overhead Worker: Jaleel Garza M.D. Performed By: #### S #### [facility] CLIA [id number] [address] [place] [address] GROSS DESCRIPTION Normal [facility] Comment on above: Order Comment: Speci men Type: TISSUE SPECIMEN [facility] Address: [address] [place] [address] Result Comment: A. F UNDUS (STOMACH) BIOPSY Received in formalin are two pieces of parker, soft tissue aggregating to 0.7 x 0.2 x 0.2 cm. Totally submitted in one cassette. February 11, 2023 4:29 PM Gross examination performed at , [address] [place] [address] Performed By: #### S #### [facility] CLIA [id number] [address] [place] [address] OF [place] Upper GI endoscopyon -19-2 023 Upper GI endoscopy [facility] Gastrointestinal Endoscopy Patient Name: Minal Caputo Procedure Date: 02/11/2023 10:48 AM Date of : 1955 Admit Type: Outpatient Age: 67 Room: [facility] 02 Gender: Female Note Status: Finalized Attending MD: [...] pathology results. Procedure Code(s): --- Professional --- 14267, Esophagogastroduodenoscopy , flexible, transoral; with biopsy, single or multiple Diagnosis Code(s): --- Professional --- K44.9, Diaphragmatic hernia without obstruction or gangrene K31.7, Polyp of stomach and duodenum K21.9, Gastro-esophageal reflux disease without esophagitis CPT copyright 202 [employer]. All rights reserved. The codes documented in this report are preliminary and upon medical records coder review may be revised to meet current compliance requirements. Attending Participation: I personally performed the entire procedure. Scope In: 11:01:22 AM Scope Out: 11:05:45 AM MD Princess Schumacher Jr, MD 02/11/2023 11:08:03 AM This report has been signed electronically by Princess Begum Jr, MD Number of Addenda: 0 Note Initiated On: 02/11/2023 10:48 AM Estimated Blood Loss: Estimated blood loss: none. [facility] 02-07-2023 CNOV Normal [facility] CNOVon 02-05-2023 CNOV Normal [facility] ECG COMPLETEon 02-05-2023 ECG COMPLETE Normal [facility] HISTORY PHYSICALon 3 HISTORY PHYSICAL Normal [facility] CNPNon 01-30-2023 CNPN Normal [facility] HISTORY PHYSICALon 3 HISTORY PHYSICAL Normal [facility] CBC AUTO DIFFon 12-11-2022 BASO # 0.0 103/ul Normal 0.0-0.1 [facility] Comment on above: Performed By: #### C BC #### [facility] [address] [address] [address] Jessica Fall Basophils/100 WBC (Bld) 0.1 % Critically low 0.2-2.0 [facility] Comment on above: Performed By: #### C BC #### [facility] [address] [address] [address] Jessica Fall EO # 0.0 103/ul Normal 0.0-0.7 [facility] Comment on above: Performed By: #### C BC #### [facility] [address] [address] [address] Jessica Fall Eosinophils/100 WBC (Bld) 0.0 % Critically low 0.9-7.0 [facility] Comment on above: Performed By: #### C BC #### [facility] [address] [address] [address] Jessica Fall Erythrocyte distribution width (RBC) [Ratio] 13.9 % Normal 11.0-15.0 [facility] Comment on above: Performed By: #### C BC #### [facility] [address] [address] [address] Jessica Fall Hematocrit (Bld) [Volume fraction] 43.5 % Normal 36.0-48.0 [facility] Comment on above: Performed By: #### C BC #### [facility] [address] [address] [address] Jessica Fall Hemoglobin (Bld) [Mass/Vol] 14.6 g/dL Normal 12.0-16.0 [facility] Comment on above: Performed By: #### C BC #### [facility] [address] [place] [address] Dr. Jessica Fall IG # 0.18 10e3/ul Critically high 0.00-0.03 [facility] Comment on above: Performed By: #### C BC #### [facility] [address] [place] [address] Dr. Jessica Fall IG % 1.0 % Critically high 0.0-0.5 [facility] Comment on above: Performed By: #### C BC #### [facility] [address] [place] [address] Dr. Jessica Fall LYMPH # 1.5 103/ul Normal 1.2-3.8 [facility] Comment on above: Performed By: #### C BC #### [facility] [address] [place] [address] Dr. Jessica Fall Lymphocytes/100 WBC (Bld) 8.3 % Critically low 20.5-60.0 [facility] Comment on above: Performed By: #### C BC #### [facility] [address] [place] [address] Dr. Jessica Fall MANUAL DIFF REQ NO Normal [facility] Comment on above: Performed By: #### C BC #### [facility] [address] [place] [address] Dr. Jessica Fall MCH (RBC) [Entitic mass] 29.6 pg Normal 26.7-34.0 [facility] Comment on above: Performed By: #### C BC #### [facility] [address] [place] [address] Dr. Jessica Fall MCHC (RBC) [Mass/Vol] 33.6 g/dL Normal 29.9-35.2 [facility] Comment on above: Performed By: #### C BC #### [facility] [address] [place] [address] Dr. Jessica Fall MCV (RBC) [Entitic vol] 88.1 fL Normal 81.0-99.0 [facility] Comment on above: Performed By: #### C BC #### [facility] [address] [address] [address] Jessica Fall MONO # 0.7 103/ul Normal 0.3-0.8 [facility] Comment on above: Performed By: #### C BC #### [facility] [address] [place] [address] Dr. Jessica Fall Monocytes/100 WBC (Bld) 3.7 % Normal 1.7-12.0 [facility] Comment on above: Performed By: #### C BC #### [facility] [address] [place] [address] Dr. Jessica Fall NEUT # 15.6 103/ul Critically high 1.4-6.5 [facility] Comment on above: Performed By: #### C BC #### [facility] [address] [place] [address] Dr. Jessica Fall Neutrophils/100 WBC (Bld) 86.9 % Critically high 43.0-75.0 [facility] Comment on above: Performed By: #### C BC #### [facility] [address] [place] [address] Dr. Jessica Fall Platelet mean volume (Bld) [Entitic vol] 9.7 fL Normal 9.5-13.5 [facility] Comment on above: Performed By: #### C BC #### [facility] [address] [place] [address] Dr. Jessica Fall PLT 372 103/ul Normal 150-450 [facility] Comment on above: Performed By: #### C BC #### [facility] [address] [place] [address] Dr. Jessica Fall RBC 4.94 106/ul Normal 4.20-5.40 [facility] Comment on above: Performed By: #### C BC #### [facility] [address] [place] [address] Dr. Jessica Fall WBC 17.9 103/ul Critically high 4.0-11.0 [facility] Comment on above: Performed By: #### C BC #### [facility] [address] [address] [address] Jessica Fall PROF CHEM 8 (BAS METB)on Anion gap [Moles/Vol] 13.8 mmol/L Normal [facility] Comment on above: Performed By: #### B MP #### [facility] [address] [address] [address] Jessica Fall Calcium [Mass/Vol] 8.8 mg/dL Normal 8.5-10.1 [facility] Comment on above: Performed By: #### B MP #### [facility] [address] [address] [address] Jessica Fall Chloride [Moles/Vol] 104 mmol/L Normal 98-107 [facility] Comment on above: Performed By: #### B MP #### [facility] [address] [address] [address] Jessica Fall CO2 [Moles/Vol] 26.5 mmol/L Normal 21.0-32.0 [facility] Comment on above: Performed By: #### B MP #### [facility] [address] [address] [address] Jessica Fall Creatinine [Mass/Vol] 0.95 mg/dL Normal 0.55-1.02 [facility] Comment on above: Performed By: #### B MP #### [facility] [address] [address] [address] Jessica Fall EGFR-AF CYMRAES >60 Normal >=60 [facility] Comment on above: Performed By: #### B MP #### [facility] [address] [address] [address] Jessica Fall EGFR-NON AF CYMRAES 58 mL/min/1.73m2 Critically low >=60 [facility] Comment on above: Performed By: #### B MP #### [facility] [address] [address] [address] Jessica Fall Glucose [Mass/Vol] 246 mg/dL Critically high 74-106 [facility] Comment on above: Performed By: #### B MP #### [facility] [address] [address] [address] Jessica Fall Potassium [Moles/Vol] 4.3 mmol/L Normal 3.5-5.1 [facility] Comment on above: Performed By: #### B MP #### [facility] [address] [place] [address] Dr. Jessica Fall Sodium [Moles/Vol] 140 mmol/L Normal 136-145 [facility] Comment on above: Performed By: #### B MP #### [facility] [address] [place] [address] Dr. Jessica Fall Urea nitrogen [Mass/Vol] 19.0 mg/dL Critically high 7.0-18.0 [facility] Comment on above: Performed By: #### B MP #### [facility] [address] [place] [address] Dr. Jessica Fall Urea nitrogen/Creatinine [Mass ratio] 20.0 mg/mg Normal [facility] Comment on above: Performed By: #### B MP #### [facility] [address] [place] [address] Dr. Jessica Fall CBC AUTO DIFFon 12-10-2022 BASO # 0.0 103/ul Normal 0.0-0.1 [facility] Comment on above: Performed By: #### C BC #### [facility] [address] [place] [address] Dr. Jessica Fall Basophils/100 WBC (Bld) 0.2 % Normal 0.2-2.0 [facility] Comment on above: Performed By: #### C BC #### [facility] [address] [place] [address] Dr. Jessica Fall EO # 0.0 103/ul Normal 0.0-0.7 [facility] Comment on above: Performed By: #### C BC #### [facility] [address] [place] [address] Dr. Jessica Fall Eosinophils/100 WBC (Bld) 0.0 % Critically low 0.9-7.0 [facility] Comment on above: Performed By: #### C BC #### [facility] [address] [place] [address] Dr. Jessica Fall Erythrocyte distribution width (RBC) [Ratio] 14.2 % Normal 11.0-15.0 [facility] Comment on above: Performed By: #### C BC #### [facility] [address] [place] [address] Dr. Jessica Fall Hematocrit (Bld) [Volume fraction] 44.9 % Normal 36.0-48.0 [facility] Comment on above: Performed By: #### C BC #### [facility] [address] [place] [address] Dr. Jessica Fall Hemoglobin (Bld) [Mass/Vol] 14.9 g/dL Normal 12.0-16.0 [facility] Comment on above: Performed By: #### C BC #### [facility] [address] [place] [address] Dr. Jessica Fall IG # 0.08 10e3/ul Critically high 0.00-0.03 [facility] Comment on above: Performed By: #### C BC #### [facility] [address] [place] [address] Dr. Jessica Fall IG % 0.8 % Critically high 0.0-0.5 [facility] Comment on above: Performed By: #### C BC #### [facility] [address] [place] [address] Dr. Jessica Fall LYMPH # 1.3 103/ul Normal 1.2-3.8 [facility] Comment on above: Performed By: #### C BC #### [facility] [address] [place] [address] Dr. Jessica Fall Lymphocytes/100 WBC (Bld) 12.1 % Critically low 20.5-60.0 [facility] Comment on above: Performed By: #### C BC #### [facility] [address] [place] [address] Dr. Jessica Fall MANUAL DIFF REQ NO Normal [facility] Comment on above: Performed By: #### C BC #### [facility] [address] [place], [place] [address] Dr. Jessica Fall MCH (RBC) [Entitic mass] 29.7 pg Normal 26.7-34.0 [facility] Comment on above: Performed By: #### C BC #### [facility] [address] [place] [address] Dr. Jessica Fall MCHC (RBC) [Mass/Vol] 33.2 g/dL Normal 29.9-35.2 [facility] Comment on above: Performed By: #### C BC #### [facility] [address] [place] [address] Dr. Jessica Fall MCV (RBC) [Entitic vol] 89.4 fL Normal 81.0-99.0 [facility] Comment on above: Performed By: #### C BC #### [facility] [address] [place] [address] Dr. Jessica Fall MONO # 0.1 103/ul Critically low 0.3-0.8 [facility] Comment on above: Performed By: #### C BC #### [facility] [address] [place] [address] Dr. Jessica Fall Monocytes/100 WBC (Bld) 1.2 % Critically low 1.7-12.0 [facility] Comment on above: Performed By: #### C BC #### [facility] [address] [place] [address] Dr. Jessica Fall NEUT # 8.9 103/ul Critically high 1.4-6.5 [facility] Comment on above: Performed By: #### C BC #### [facility] [address] [place] [address] Dr. Jessica Fall Neutrophils/100 WBC (Bld) 85.7 % Critically high 43.0-75.0 [facility] Comment on above: Performed By: #### C BC #### [facility] [address] [place] [address] Dr. Jessica Fall Platelet mean volume (Bld) [Entitic vol] 9.8 fL Normal 9.5-13.5 [facility] Comment on above: Performed By: #### C BC #### [facility] [address] [address] [address] Jessica Fall PLT 337 103/ul Normal 150-450 [facility] Comment on above: Performed By: #### C BC #### [facility] [address] [address] [address] Jessica Fall RBC 5.02 106/ul Normal 4.20-5.40 [facility] Comment on above: Performed By: #### C BC #### [facility] [address] [address] [address] Jessica Fall WBC 10.4 103/ul Normal 4.0-11.0 [facility] Comment on above: Performed By: #### C BC #### [facility] [address] [place] [address] Dr. Jessica Fall GLYCOHEMOGLOBIN A1Con 2022 ADA RECOMMENDATION SEE BELOW Normal [facility] Comment on above: Result Comment: ADA RECOMMENDED LIMIT 4.0 - 6.0 ADA THERAPEUTIC TARGET < 7.0 ACTION SUGGESTED > 7.0 Performed By: #### A 1C #### [facility] [address] [place] [address] Dr. Jessica Fall Glucose [Mass/Vol] 134 mg/dL Normal [facility] Comment on above: Performed By: #### A 1C #### [facility] [address] [place] [address] Dr. Jessica Fall HbA1c (Bld) [Mass fraction] 6.3 % Critically high 4.5-6.2 [facility] Comment on above: Performed By: #### A 1C #### [facility] [address] [place] [address] Dr. Jessica Fall PROF CHEM 8 (BAS METB)on Anion gap [Moles/Vol] 12.8 mmol/L Normal [facility] Comment on above: Performed By: #### C BC #### [facility] [address] [place] [address] Dr. Jessica Fall Calcium [Mass/Vol] 8.8 mg/dL Normal 8.5-10.1 [facility] Comment on above: Performed By: #### C BC #### [facility] [address] [address] [address] Jessica Fall Chloride [Moles/Vol] 102 mmol/L Normal 98-107 [facility] Comment on above: Performed By: #### C BC #### [facility] [address] [address] [address] Jessica Fall CO2 [Moles/Vol] 26.2 mmol/L Normal 21.0-32.0 [facility] Comment on above: Performed By: #### C BC #### [facility] [address] [address] [address] Jessica Fall Creatinine [Mass/Vol] 1.01 mg/dL Normal 0.55-1.02 [facility] Comment on above: Performed By: #### C BC #### [facility] [address] [place] [address] Dr. Jessica Fall EGFR-AF CYMRAES >60 Normal >=60 [facility] Comment on above: Performed By: #### C BC #### [facility] [address] [address] [address] Jessica Fall EGFR-NON AF CYMRAES 55 mL/min/1.73m2 Critically low >=60 [facility] Comment on above: Performed By: #### C BC #### [facility] [address] [address] [address] Jessica Fall Glucose [Mass/Vol] 219 mg/dL Critically high 74-106 [facility] Comment on above: Performed By: #### C BC #### [facility] [address] [address] [address] Jessica Fall Potassium [Moles/Vol] 4.0 mmol/L Normal 3.5-5.1 [facility] Comment on above: Performed By: #### C BC #### [facility] [address] [address] [address] Jessica Fall Sodium [Moles/Vol] 137 mmol/L Normal 136-145 [facility] Comment on above: Performed By: #### C BC #### [facility] [address] [place] [address] Dr. Jessica Fall Urea nitrogen [Mass/Vol] 22.0 mg/dL Critically high 7.0-18.0 [facility] Comment on above: Performed By: #### C BC #### [facility] [address] [place] [address] Dr. Jessica Fall Urea nitrogen/Creatinine [Mass ratio] 21.8 mg/mg Normal [facility] Comment on above: Performed By: #### C BC #### [facility] [address] [place] [address] Dr. Jessica Fall BNPon 12-09-2022 Natriuretic peptide B (Bld) [Mass/Vol] 77.0 pg/mL Normal <=900.0 [facility] Comment on above: Performed By: #### C BC #### [facility] [address] [place] [address] Dr. Jessica Fall CBC AUTO DIFFon 12-09-2022 BASO # 0.1 103/ul Normal 0.0-0.1 [facility] Comment on above: Performed By: #### C BC #### [facility] [address] [place] [address] Dr. Jessica Fall Basophils/100 WBC (Bld) 0.5 % Normal 0.2-2.0 [facility] Comment on above: Performed By: #### C BC #### [facility] [address] [place] [address] Dr. Jessica Fall EO # 0.1 103/ul Normal 0.0-0.7 [facility] Comment on above: Performed By: #### C BC #### [facility] [address] [place] [address] Dr. Jessica Fall Eosinophils/100 WBC (Bld) 0.5 % Critically low 0.9-7.0 [facility] Comment on above: Performed By: #### C BC #### [facility] [address] [place] [address] Dr. Jessica Fall Erythrocyte distribution width (RBC) [Ratio] 14.1 % Normal 11.0-15.0 [facility] Comment on above: Performed By: #### C BC #### [facility] [address] [address] [address] Jessica Fall Hematocrit (Bld) [Volume fraction] 46.5 % Normal 36.0-48.0 [facility] Comment on above: Performed By: #### C BC #### [facility] [address] [place] [address] Dr. Jessica Fall Hemoglobin (Bld) [Mass/Vol] 15.6 g/dL Normal 12.0-16.0 [facility] Comment on above: Performed By: #### C BC #### [facility] [address] [place] [address] Dr. Jessica Fall IG # 0.07 10e3/ul Critically high 0.00-0.03 [facility] Comment on above: Performed By: #### C BC #### [facility] [address] [place] [address] Dr. Jessica Fall IG % 0.6 % Critically high 0.0-0.5 [facility] Comment on above: Performed By: #### C BC #### [facility] [address] [place] [address] Dr. Jessica Fall LYMPH # 4.5 103/ul Critically high 1.2-3.8 [facility] Comment on above: Performed By: #### C BC #### [facility] [address] [place] [address] Dr. Jessica Fall Lymphocytes/100 WBC (Bld) 40.1 % Normal 20.5-60.0 [facility] Comment on above: Performed By: #### C BC #### [facility] [address] [place] [address] Dr. Jessica Fall MANUAL DIFF REQ NO Normal [facility] Comment on above: Performed By: #### C BC #### [facility] [address] [place] [address] Dr. Jessica Fall MCH (RBC) [Entitic mass] 29.7 pg Normal 26.7-34.0 [facility] Comment on above: Performed By: #### C BC #### [facility] [address] [address] [address] Jessica Flal MCHC (RBC) [Mass/Vol] 33.5 g/dL Normal 29.9-35.2 [facility] Comment on above: Performed By: #### C BC #### [facility] [address] [address] [address] Jessica Fall MCV (RBC) [Entitic vol] 88.4 fL Normal 81.0-99.0 [facility] Comment on above: Performed By: #### C BC #### [facility] [address] [address] [address] Jessica Fall MONO # 0.8 103/ul Normal 0.3-0.8 [facility] Comment on above: Performed By: #### C BC #### [facility] [address] [place] [address] Dr. Jessica Fall Monocytes/100 WBC (Bld) 7.0 % Normal 1.7-12.0 [facility] Comment on above: Performed By: #### C BC #### [facility] [address] [place] [address] Dr. Jessica Fall NEUT # 5.8 103/ul Normal 1.4-6.5 [facility] Comment on above: Performed By: #### C BC #### [facility] [address] [place] [address] Dr. Jessica Fall Neutrophils/100 WBC (Bld) 51.3 % Normal 43.0-75.0 [facility] Comment on above: Performed By: #### C BC #### [facility] [address] [place] [address] Dr. Jessica Fall Platelet mean volume (Bld) [Entitic vol] 9.4 fL Critically low 9.5-13.5 [facility] Comment on above: Performed By: #### C BC #### [facility] [address] [place] [address] Dr. Jessica Fall PLT 354 103/ul Normal 150-450 [facility] Comment on above: Performed By: #### C BC #### [facility] [address] [place], [place] [address] Dr. Jessica Fall RBC 5.26 106/ul Normal 4.20-5.40 [facility] Comment on above: Performed By: #### C BC #### [facility] [address] [place], [place] [address] Dr. Jessica Fall WBC 11.3 103/ul Critically high 4.0-11.0 [facility] Comment on above: Performed By: #### C BC #### [facility] [address] [place], [place] [address] Dr. Jessica Fall CTA CHEST WO W [...] Dharmesh LOPEZ Date: 2022-12-09 21:04 Normal [facility] INFLUENZA A AND B AGon 12-09 INFLUANEGH SEE BELOW Normal [facility] Comment on above: Result Comment: Nega tive for Flu A protein angiten. Infection due to Flu A cannot be ruled out. Flu A angiten in the sample may be below the detection limit of the test. Performed By: #### D DIM #### [facility] [address] [place] [address] Dr. Jessica Fall [facility] SEE BELOW Normal [facility] Comment on above: Result Comment: Nega tive for Flu B protein antigen. Infection due to Flu B cannot be ruled out. Flu B antigen in the sample may be below the detection limit of the test. Performed By: #### D DIM #### [facility] [address] [place] [address] Dr. Jessica Fall INFLUENZA A AG Negative Normal NEGATIVE SEE COMMENT [facility] Comment on above: Performed By: #### D DIM #### [facility] [address] [place] [address] Dr. Jessica Fall INFLUENZA B AG Negative Normal NEGATIVE SEE COMMENT [facility] Comment on above: Performed By: #### D DIM #### [facility] [address] [place] [address] Dr. Jsesica Fall PROF CHEM 8 (BAS METB)on Anion gap [Moles/Vol] 15.6 mmol/L Normal [facility] Comment on above: Performed By: #### C BC #### [facility] [address] [place] [address] Dr. Jessica Fall Calcium [Mass/Vol] 8.8 mg/dL Normal 8.5-10.1 [facility] Comment on above: Performed By: #### C BC #### [facility] [address] [place] [address] Dr. Jessica Fall Chloride [Moles/Vol] 104 mmol/L Normal 98-107 [facility] Comment on above: Performed By: #### C BC #### [facility] [address] [place] [address] Dr. Jessica Fall CO2 [Moles/Vol] 26.4 mmol/L Normal 21.0-32.0 [facility] Comment on above: Performed By: #### C BC #### [facility] [address] [place] [address] Dr. Jessica Fall Creatinine [Mass/Vol] 1.15 mg/dL Critically high 0.55-1.02 [facility] Comment on above: Performed By: #### C BC #### [facility] [address] [address] [address] Jessica Fall EGFR-AF CYMRAES 57 mL/min/1.73m2 Critically low >=60 [facility] Comment on above: Performed By: #### C BC #### [facility] [address] [address] [address] Jessica Fall EGFR-NON AF CYMRAES 47 mL/min/1.73m2 Critically low >=60 [facility] Comment on above: Performed By: #### C BC #### [facility] [address] [address] [address] Jessica Fall Glucose [Mass/Vol] 126 mg/dL Critically high 74-106 [facility] Comment on above: Performed By: #### C BC #### [facility] [address] [address] [address] Jessica Fall Potassium [Moles/Vol] 4.0 mmol/L Normal 3.5-5.1 [facility] Comment on above: Performed By: #### C BC #### [facility] [address] [address] [address] Jessica Fall Sodium [Moles/Vol] 142 mmol/L Normal 136-145 [facility] Comment on above: Performed By: #### C BC #### [facility] [address] [address] [address] Jessica Fall Urea nitrogen [Mass/Vol] 25.0 mg/dL Critically high 7.0-18.0 [facility] Comment on above: Performed By: #### C BC #### [facility] [address] [address] [address] Jessica Fall Urea nitrogen/Creatinine [Mass ratio] 21.7 mg/mg Normal [facility] Comment on above: Performed By: #### C BC #### [facility] [address] [address] [address] Jessica Fall RESPIRATORY PANEL PLUSon Adenovirus Not detected Normal NOT DETECTED [facility] Comment on above: Performed By: #### R SPLUS #### [facility] [address] [place] [address] Dr. Jessica Thomas Parapertusis Not detected Normal NOT DETECTED [facility] Comment on above: Performed By: #### R SPLUS #### [facility] [address] [place] [address] Dr. Jessica Thomas Pertussis Not detected Normal NOT DETECTED [facility] Comment on above: Performed By: #### R SPLUS #### [facility] [address] [place] [address] Dr. Jessica Fall Chlamydia Pneumoniae Not detected Normal NOT DETECTED [facility] Comment on above: Performed By: #### R SPLUS #### [facility] [address] [place] [address] Dr. Jessica Fall Coronavirus 229E Not detected Normal NOT DETECTED [facility] Comment on above: Performed By: #### R SPLUS #### [facility] [address] [place] [address] Dr. Jessica Fall Coronavirus HKU1 Not detected Normal NOT DETECTED [facility] Comment on above: Performed By: #### R SPLUS #### [facility] [address] [place] [address] Dr. Jessica Fall Coronavirus NL63 Not detected Normal NOT DETECTED [facility] Comment on above: Performed By: #### R SPLUS #### [facility] [address] [place] [address] Dr. Jessica Fall Coronavirus OC43 Not detected Normal NOT DETECTED [facility] Comment on above: Performed By: #### R SPLUS #### [facility] [address] [place] [address] Dr. Jessica Fall Influenza A H1 Not detected Normal NOT DETECTED [facility] Comment on above: Performed By: #### R SPLUS #### [facility] [address] [place] [address] Dr. Jessica Fall Influenza A H1 2009 Not detected Normal NOT DETECTED [facility] Comment on above: Performed By: #### R SPLUS #### [facility] [address] [place] [address] Dr. Jessica Fall Influenza A H3 Not detected Normal NOT DETECTED [facility] Comment on above: Performed By: #### R SPLUS #### [facility] [address] [place] [address] Dr. Jessica Fall Influenza B Not detected Normal NOT DETECTED [facility] Comment on above: Performed By: #### R SPLUS #### [facility] [address] [place] [address] Dr. Jessica Fall Metapneumovirus Detected Abnormal NOT DETECTED [facility] Comment on above: Performed By: #### R SPLUS #### [facility] [address] [place] [address] Dr. Jessica Fall Mycoplas. Pneumoniae Not detected Normal NOT DETECTED [facility] Comment on above: Performed By: #### R SPLUS #### [facility] [address] [place] [address] Dr. Jessica Fall Parainfluenza 1 Not detected Normal NOT DETECTED [facility] Comment on above: Performed By: #### R SPLUS #### [facility] [address] [place] [address] Dr. Jessica Fall Parainfluenza 2 Not detected Normal NOT DETECTED [facility] Comment on above: Performed By: #### R SPLUS #### [facility] [address] [place] [address] Dr. Jessica Fall Parainfluenza 3 Not detected Normal NOT DETECTED [facility] Comment on above: Performed By: #### R SPLUS #### [facility] [address] [place] [address] Dr. Jessica Fall Parainfluenza 4 Not detected Normal NOT DETECTED [facility] Comment on above: Performed By: #### R SPLUS #### [facility] [address] [place] [address] Dr. Jessica Fall Rhino/Enterovirus Not detected Normal NOT DETECTED [facility] Comment on above: Performed By: #### R SPLUS #### [facility] [address] [place] [address] Dr. Jessica Fall RP2 Header 1 RESPIRATORY PANEL: VIRUSES Normal [facility] Comment on above: Performed By: #### R SPLUS #### [facility] [address] [address] [address] Jessica Fall RP2 Header 2 RESPIRATORY PANEL: BACTERIA Normal [facility] Comment on above: Performed By: #### R SPLUS #### [facility] [address] [place] [address] Dr. Jessica Fall RSV Not detected Normal NOT DETECTED [facility] Comment on above: Performed By: #### R SPLUS #### [facility] [address] [place] [address] Dr. Jessica Fall SARS-CoV-2 (COVID-19) RNA NORAH+probe Ql (Unsp spec) Not detected Normal NOT DETECTED [facility] Comment on above: Performed By: #### R SPLUS #### [facility] [address] [place] [address] Dr. Jessica Fall TROPONIN, HIGH SENSITIVITYon 12-09-2022 HSTROP 9.3 pg/mL Normal 4.0-51.3 [facility] Comment on above: Result Comment: CUT- OFF POINTS HAVE BEEN ESTABLISHED BASED ON THE FOURTH UNIVERSAL DEFINITIONS OF MYOCARDIAL INFARCTION. THE UPPER REFERENCE LIMIT (URL) OF TROPONIN, DEFINED THE 99TH PERCENTILE OF cTnI DISTRIBUTION IN A REFERENCE POPULATION, HAS BEEN CONFIRMED THE DECISION THRESHOLD FOR PR DIAGNOSIS. Performed By: #### C BC #### [facility] [address] [place] [address] Dr. Jessica Fall XR CHEST 1 Von [...] Dharmesh LOPEZ Date: 2022-12-09 18:44 Normal [facility] COVID + FLU Quick Testingon 12-03-2022 SARS-CoV-2 (COVID-19) RNA NORAH+probe Ql (Unsp spec) Negative [employer] Other COVID + FLU Quick Testing Negative [employer] Other Lito 10-02-2022 L ------ Specimen: [id number] Received: 10/02/22 Status: MELODIE Larkindulce Num: [id number] Spec Type: Cytology Subm Dr: Nikko Astorga DO Tissues: A FNA SLIDES NOPATH (RT THYROID NOD) B FNA SLIDES NOPATH (LT THYROID NOD) Procedures: HE/4, Cyto Int and Re/2, PAPSTN/34 Age/ Patient Sex Location Account Attending Physician Minal Caputo 66/F RONNY [id number] Nikko Astorga DO SPEC NUM: [id number] RECD: 10/02/22 STATUS: MELODIE BARTON NUM: [id number] KATERINE: 10/02/22 [facility] DR: Nikko Astorga DO ENTERED: 10/02/22 [facility] DR: SPEC TYPE: Cytology DEPT: CNG ENTERED BY: [id number] RECV BY: [id number] ORDERED: HE/4, Cyto Int and Re/2, PAPSTN/34 ORDERED: HE/4, Cyto Int and Re/2, PAPSTN/34 Pathological Diagnosis A. Right thyroid, fine needle aspiration: - Nondiagnostic. - Predominantly blood, rare bland follicular group identified. - [place] Category I. B. Left thyroid, fine needle aspiration: - Nondiagnostic. - Virtually entirely blood, rare possible follicular group identified. - [place] Category I. Clinical Information Thyroid Nodule Gross Description Received is A. (right) 15 ml red cloudy unfixed fluid for cytology said to have been obtained as FNA (Fine Needle Aspiration)of Left Thyroid. ThinPrep and cell block preparations are prepared for microscopic examination. Also received are 16 smeared slides for microscopic examination.(WK/nh) Received is B. (left) 15 ml red slightly cloudy unfixed fluid for cytology said to have been obtained as FNA (Fine Needle Aspiration) of Right Thyroid. ThinPrep and cell block Specimen: [id number] Received: 10/02/22 Status: MELODIE Barton Num: [id number] Spec Type: Cytology Subm Dr: Nikko Astorga DO Tissues: A FNA SLIDES NOPATH (RT THYROID NOD) B FNA SLIDES NOPATH (LT THYROID NOD) Procedures: HE/4, Cyto Int and Re/2, PAPSTN/34 Patient: Minal Caputo Andres [id number] (Continued) Specimen: [id number] Received: 10/02/22 (Continued) Gross Description (Continued) Signed (signature on file) Remberto Ayon MD 10/04/22 1538 Specimen: [id number] Received: 10/02/22 Status: MELODIE Barton Num: [id number] Spec Type: Cytology Subm Dr: Nikko Astorga DO Tissues: A FNA SLIDES NOPATH (RT THYROID NOD) B FNA SLIDES NOPATH (LT THYROID NOD) Procedures: HE/4, Cyto Int and Re/2, PAPSTN/34 Patient: Minal Caputo [id number] (Continued) Specimen: [id number] Received: 10/02/22 (Continued) Gross [...] Microscopic examination confirms the diagnosis. CPT Codes 32765 x 2, 32978 x 2 Specimen: [id number] Received: 10/02/22 Status: MELODIE Barton Num: [id number] Spec Type: Cytology Subm Dr: Nikko Astorga DO Tissues: A FNA SLIDES NOPATH (RT THYROID NOD) B FNA SLIDES NOPATH (LT THYROID NOD) Procedures: HE/4, Cyto Int and Re/2, PAPSTN/34 Patient: Minal Caputo [id number] (Continued) Signed (signature on file) Remberto Ayon MD 10/04/22 1538 [facility] Urine Cultureon 08-12-2022 Bacteria identified Cx Nom (U) Reason for Exam Dysuria Urine ORGANISM: Escherichia coli (O:ESCCOL) [place] Count >100,000 Aerobic JOSE Charge (NMIC56) SUSCEPTIBILITY [...] RESISTANT TO ALL B-LACTAM DRUGS. PERFORMED BY: [place] [address] PATHOLOGIST [employer] SOLANGE ANN M.D. [facility] Comment on above: Performed By: #### C UU #### [address] Urine culture routineOrdered By: DAYANNA SCHUMACHER on 08-12-2022 Bacteria identified Cx Nom (U) Escherichia coli [facility] ECH echo transthoracicon ECH echo transthoracic [facility] [place] [address] [place] [address] Echocardiogram Signed Patient: Minal Caputo MR#: [id number] : 1955 Acct:[id number] Age/Sex: 66 / F ADM Date: 07/02/22 Loc: Room: Type: [facility] Attending Dr: Kaylene Lilly DO Ordering Provider: [...] 2.1 cm2 ANDRA(V,D): 2.3 cm2 Transcribed By: SCV Performed At: 07/02/22 1556 Signed By: Kenzie Avina MD 07/02/22 1729 [facility] COVID Quick Testingon 2021 Result Positive [employer] Other XR HIP GENERAL 3V PELV/AP/LA T LEFTon 03-23-2022 CARDIAC JALEEL 3-6on 2 CK [Catalytic activity/Vol] 57 U/L Normal 26-192 [facility] Comment on above: Performed By: #### C BC #### [facility] [address] [address] [address] Jessica Fall CK.MB [Mass/Vol] 0.63 ng/mL Normal <=3.60 [facility] Comment on above: Performed By: #### C BC #### [facility] [address] [address] [address] Jessica Fall HSTROP 9.7 pg/mL Normal 4.0-51.3 [facility] Comment on above: Result Comment: CUT- OFF POINTS HAVE BEEN ESTABLISHED BASED ON THE FOURTH UNIVERSAL DEFINITIONS OF MYOCARDIAL INFARCTION. THE UPPER REFERENCE LIMIT (URL) OF TROPONIN, DEFINED THE 99TH PERCENTILE OF cTnI DISTRIBUTION IN A REFERENCE POPULATION, HAS BEEN CONFIRMED THE DECISION THRESHOLD FOR PR DIAGNOSIS. Performed By: #### C BC #### [facility] [address] [address] [address] CSPINE WO CONon [...] CHRISTINE AVILES Date: 2022-03-14 01:54 Normal [facility] CT HEAD WO CONon 03-14-2022 CT [...] Palomo RAM Date: 2022-03-14 03:31 Normal [facility] CT TSPINE WO CONon 2 CT [...] by: RAKESH SOLARES Date: 2022-03-14 03:40 Normal [facility] CTA CHEST WO W CONon 022 CTA CHEST WO W CON EXAMINATION: CTA BASIM ST WO W CON HISTORY: CHEST PAIN, [...] GABBY GREY Date: 2022-03-13 22:22 Normal [facility] Covid-19 PCR (CVDTBH)on 02-24 SARS-CoV-2 (COVID-19) RNA NORAH+probe Ql (Unsp spec) Not detected Normal NOT DETECTED [facility] Comment on above: Result Comment: When [...] for this test is supported by the Instructor Modeling of Health and Human Service's declaration that [...] longer be used). Performed By: #### C VDTB #### [facility] [address] [place] [address] Dr. Jessica Fall BNPon 03-13-2022 Natriuretic peptide B (Bld) [Mass/Vol] 87.0 pg/mL Normal <=900.0 [facility] Comment on above: Performed By: #### C MP, BNP, HSTROPN #### [facility] [address] [place] [address] Dr. Jessica Fall CARDIAC JALEEL 3-6on 2 CK [Catalytic activity/Vol] 61 U/L Normal 26-192 [facility] Comment on above: Performed By: #### D DIM #### [facility] [address] [place] [address] Dr. Jessica Fall CK.MB [Mass/Vol] 0.57 ng/mL Normal <=3.60 [facility] Comment on above: Performed By: #### D DIM #### [facility] [address] [place] [address] Dr. Jessica Fall HSTROP 8.9 pg/mL Normal 4.0-51.3 [facility] Comment on above: Result Comment: CUT- OFF POINTS HAVE BEEN ESTABLISHED BASED ON THE FOURTH UNIVERSAL DEFINITIONS OF MYOCARDIAL INFARCTION. THE UPPER REFERENCE LIMIT (URL) OF TROPONIN, DEFINED THE 99TH PERCENTILE OF cTnI DISTRIBUTION IN A REFERENCE POPULATION, HAS BEEN CONFIRMED THE DECISION THRESHOLD FOR PR DIAGNOSIS. Performed By: #### D DIM #### [facility] [address] [place] [address] Dr. Jessica Fall CBC AUTO DIFFon 03-13-2022 BASO # 0.1 103/ul Normal 0.0-0.1 [facility] Comment on above: Performed By: #### C BC #### [facility] [address] [place] [address] Dr. Jessica Fall Basophils/100 WBC (Bld) 0.6 % Normal 0.2-2.0 [facility] Comment on above: Performed By: #### C BC #### [facility] [address] [place] [address] Dr. Jessica Fall EO # 0.2 103/ul Normal 0.0-0.7 [facility] Comment on above: Performed By: #### C BC #### [facility] [address] [place] [address] Dr. Jessica Fall Eosinophils/100 WBC (Bld) 2.6 % Normal 0.9-7.0 [facility] Comment on above: Performed By: #### C BC #### [facility] [address] [place] [address] Dr. Jessica Fall Erythrocyte distribution width (RBC) [Ratio] 13.3 % Normal 11.0-15.0 [facility] Comment on above: Performed By: #### C BC #### [facility] [address] [place] [address] Dr. Jessica Fall Hematocrit (Bld) [Volume fraction] 44.1 % Normal 36.0-48.0 [facility] Comment on above: Performed By: #### C BC #### [facility] [address] [place] [address] Dr. Jessica Fall Hemoglobin (Bld) [Mass/Vol] 14.6 g/dL Normal 12.0-16.0 [facility] Comment on above: Performed By: #### C BC #### [facility] [address] [place] [address] Dr. Jessica Fall IG # 0.02 10e3/ul Normal 0.00-0.03 [facility] Comment on above: Performed By: #### C BC #### [facility] [address] [place] [address] Dr. Jessica Fall IG % 0.2 % Normal 0.0-0.5 [facility] Comment on above: Performed By: #### C BC #### [facility] [address] [place] [address] Dr. Jessica Fall LYMPH # 2.5 103/ul Normal 1.2-3.8 [facility] Comment on above: Performed By: #### C BC #### [facility] [address] [place] [address] Dr. Jessica Fall Lymphocytes/100 WBC (Bld) 28.8 % Normal 20.5-60.0 [facility] Comment on above: Performed By: #### C BC #### [facility] [address] [place] [address] Dr. Jessica Fall MANUAL DIFF REQ NO Normal [facility] Comment on above: Performed By: #### C BC #### [facility] [address] [place] [address] Dr. Jessica Fall MCH (RBC) [Entitic mass] 30.2 pg Normal 26.7-34.0 [facility] Comment on above: Performed By: #### C BC #### [facility] [address] [place] [address] Dr. Jessica Fall MCHC (RBC) [Mass/Vol] 33.1 g/dL Normal 29.9-35.2 [facility] Comment on above: Performed By: #### C BC #### [facility] [address] [place] [address] Dr. Jessica Fall MCV (RBC) [Entitic vol] 91.1 fL Normal 81.0-99.0 [facility] Comment on above: Performed By: #### C BC #### [facility] [address] [place] [address] Dr. Jessica Fall MONO # 0.8 103/ul Normal 0.3-0.8 [facility] Comment on above: Performed By: #### C BC #### [facility] [address] [place] [address] Dr. Jessica Fall Monocytes/100 WBC (Bld) 8.8 % Normal 1.7-12.0 [facility] Comment on above: Performed By: #### C BC #### [facility] [address] [place] [address] Dr. Jessica Fall NEUT # 5.2 103/ul Normal 1.4-6.5 [facility] Comment on above: Performed By: #### C BC #### [facility] [address] [place] [address] Dr. Jessica Fall Neutrophils/100 WBC (Bld) 59.0 % Normal 43.0-75.0 [facility] Comment on above: Performed By: #### C BC #### [facility] [address] [place] [address] Dr. Jessica Fall Platelet mean volume (Bld) [Entitic vol] 10.1 fL Normal 9.5-13.5 [facility] Comment on above: Performed By: #### C BC #### [facility] [address] [place] [address] Dr. Jessica Fall PLT 301 103/ul Normal 150-450 [facility] Comment on above: Performed By: #### C BC #### [facility] [address] [place] [address] Dr. Jessica Fall RBC 4.84 106/ul Normal 4.20-5.40 [facility] Comment on above: Performed By: #### C BC #### [facility] [address] [place] [address] Dr. Jessica Fall WBC 8.8 103/ul Normal 4.0-11.0 [facility] Comment on above: Performed By: #### C BC #### [facility] [address] [place] [address] Dr. Jessica Fall D-DIMERon 03-13-2022 D-DIMER 0.82 mg/L FEU Critically high <=0.59 [facility] Comment on above: Performed By: #### D DIM #### [facility] [address] [place] [address] Dr. Jessica Fall D-DIMER COMMENTS SEE BELOW Normal [facility] Comment on above: Result Comment: Incr eases [...] hospitalization. Performed By: #### D DIM #### [facility] [address] [place] [address] Dr. Jessica Fall PROF 14(COMP METB)on 022 Albumin [Mass/Vol] 3.7 g/dL Normal 3.4-5.0 [facility] Comment on above: Performed By: #### C MP, BNP, HSTROPN #### [facility] [address] [address] [address] Jessica Fall Albumin/Globulin [Mass ratio] 1.1 {ratio} Normal [facility] Comment on above: Performed By: #### C MP, BNP, HSTROPN #### [facility] [address] [address] [address] Jessica Fall ALP [Catalytic activity/Vol] 94 U/L Normal 46-116 [facility] Comment on above: Performed By: #### C MP, BNP, HSTROPN #### [facility] [address] [place] [address] Dr. Jessica Fall ALT [Catalytic activity/Vol] 50 U/L Normal 14-59 [facility] Comment on above: Performed By: #### C MP, BNP, HSTROPN #### [facility] [address] [place] [address] Dr. Jessica Fall Anion gap [Moles/Vol] 14.1 mmol/L Normal [facility] Comment on above: Performed By: #### C MP, BNP, HSTROPN #### [facility] [address] [place] [address] Dr. Jessica Fall AST [Catalytic activity/Vol] 18 U/L Normal 15-37 [facility] Comment on above: Performed By: #### C MP, BNP, HSTROPN #### [facility] [address] [place] [address] Dr. Jessica Fall Bilirubin [Mass/Vol] 0.4 mg/dL Normal 0.2-1.0 [facility] Comment on above: Performed By: #### C MP, BNP, HSTROPN #### [facility] [address] [place] [address] Dr. Jessica Fall Calcium [Mass/Vol] 9.0 mg/dL Normal 8.5-10.1 [facility] Comment on above: Performed By: #### C MP, BNP, HSTROPN #### [facility] [address] [place] [address] Dr. Jessica Fall Chloride [Moles/Vol] 103 mmol/L Normal 98-107 [facility] Comment on above: Performed By: #### C MP, BNP, HSTROPN #### [facility] [address] [place] [address] Dr. Jessica Fall CO2 [Moles/Vol] 26.7 mmol/L Normal 21.0-32.0 [facility] Comment on above: Performed By: #### C MP, BNP, HSTROPN #### [facility] [address] [place] [address] Dr. eJssica Fall Creatinine [Mass/Vol] 1.17 mg/dL Critically high 0.55-1.02 [facility] Comment on above: Performed By: #### C MP, BNP, HSTROPN #### [facility] [address] [place] [address] Dr. Jessica Fall EGFR-AF CYMRAES 56 mL/min/1.73m2 Critically low >=60 [facility] Comment on above: Performed By: #### C MP, BNP, HSTROPN #### [facility] [address] [place] [address] Dr. Jessica Fall EGFR-NON AF CYMRAES 46 mL/min/1.73m2 Critically low >=60 [facility] Comment on above: Performed By: #### C MP, BNP, HSTROPN #### [facility] [address] [place] [address] Dr. Jessica Fall Globulin (S) [Mass/Vol] 3.4 g/dL Normal [facility] Comment on above: Performed By: #### C MP, BNP, HSTROPN #### [facility] [address] [place] [address] Dr. Jessica Fall Glucose [Mass/Vol] 132 mg/dL Critically high 74-106 [facility] Comment on above: Performed By: #### C MP, BNP, HSTROPN #### [facility] [address] [place] [address] Dr. Jessica Fall Potassium [Moles/Vol] 3.8 mmol/L Normal 3.5-5.1 [facility] Comment on above: Performed By: #### C MP, BNP, HSTROPN #### [facility] [address] [address] [address] Jessica Fall Protein [Mass/Vol] 7.1 g/dL Normal 6.4-8.2 [facility] Comment on above: Performed By: #### C MP, BNP, HSTROPN #### [facility] [address] [address] [address] Jessica Fall Sodium [Moles/Vol] 140 mmol/L Normal 136-145 [facility] Comment on above: Performed By: #### C MP, BNP, HSTROPN #### [facility] [address] [place] [address] Dr. Jessica Fall Urea nitrogen [Mass/Vol] 17.0 mg/dL Normal 7.0-18.0 [facility] Comment on above: Performed By: #### C MP, BNP, HSTROPN #### [facility] [address] [address] [address] Jessica Fall Urea nitrogen/Creatinine [Mass ratio] 14.5 mg/mg Normal [facility] Comment on above: Performed By: #### C MP, BNP, HSTROPN #### [facility] [address] [place] [address] Dr. Jessica Fall TROPONIN, HIGH SENSITIVITYon 03-13-2022 HSTROP 8.1 pg/mL Normal 4.0-51.3 [facility] Comment on above: Result Comment: CUT- OFF POINTS HAVE BEEN ESTABLISHED BASED ON THE FOURTH UNIVERSAL DEFINITIONS OF MYOCARDIAL INFARCTION. THE UPPER REFERENCE LIMIT (URL) OF TROPONIN, DEFINED THE 99TH PERCENTILE OF cTnI DISTRIBUTION IN A REFERENCE POPULATION, HAS BEEN CONFIRMED THE DECISION THRESHOLD FOR PR DIAGNOSIS. Performed By: #### C MP, BNP, HSTROPN #### [facility] [address] [place] [address] Dr. Jessica Fall XR CHEST 1 Von [...] CRISTINA FARIAS Date: 2022-03-13 19:44 Normal [facility] SCREENING MAMMOGRAM W/SULMA, BILATERAL*on 02-08-2022 SCREENING [...] Visible on only one projection. Asymmetries that engine turner to be summation artifact are benign (BI-RADS 2). The BI-RADS [place] offers guidance regarding the other categories of [...] VERY IMPORTANT TO YOUR HEALTH. THE CURRENT [employer] OF [employer] AND N[employer] COMPREHENSIVE CANC[employer] NETWORK GUIDELINES RECOMMENDS ANNUAL MAMMOGRAPHY BEGINNING AT AGE 40 THIS FACILITY USES A REMINDER SYSTEM TO ENSURE ALL PATIENTS RECEIVE REMINDER NOTIFICATIONS AT THE APPROPRIATE TIME BASED ON THE RECOMMENDATIONS OF THIS EXAM. Report reported and signed by Crow Tompkins on 02/09/2022 0728 Normal [facility] Direct Sales Professional XR Chest 2 Views*on 08-24-20 21 XR Chest 2 Views* FINDINGS: Comparison made [...] by Crow Tompkins on 08/28/2021 0724 Normal [facility] Direct Sales Professional XR Hip Complete Left*on 07-28 XR Hip [...] by Crow Tompkins on 08/28/2021 0727 Normal [facility] Direct Sales Professional Reminderson 08-02-2021 Reminders - From: Jeannie Patten To: Yessi Brown; Sent: 07/03/2021 12:02:12 EST Show up: 07/17/2021 12:01:00 EST Subject: Reminder Message Reminder Message Please Remember to:_ PATIENT RELATED REMINDER:_ ( X ) Call Patient to schedule Renal US prior to next appointment at [facility] (08/02/2021) ( ) Ask Patient to ( ) Call Relative ( ) Schedule Patient ( ) Follow up on Results ( ) Other: PROVIDER RELATED REMINDER:_ ( ) 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 [id number] Gh0bWw +PGhlYWQ+DL9OMNJwR07thZKkk S0MG8tCFG5XLTZINEOUMS1PZW7 yeRU1ZXjwX3BtgbHr RldpnUOzKG01HEb5HNO7jGafZQ lhjU5odGPvP8i0WrBbVQ45uH12 HYqcJMPiPnO4EqPyhymqoPPm N5flVtZoyWIgWsw+PHRhYmxlIH lnZKUiZIvrFYRpHdYgiFqhBT6o Po4uYTRlRISxbIbjxFEiSbVb p5kzHTDlTUsfVD4dhGgsD4RtgR X0KZXas0y2Jx52uIW+PHRkIHN0 xFxwNShjn008JwUrv8xoPKR1 cSTgUJviPKG7Q18nj7O9SVNsDX AaSLT9yLV1gL2phCshioxiZ6Zr sMDyUmT5OXE1dWMwzI1zwQct kwgfzW6yYgm+F05FSM6FHSAJYB 0SZal4E8YgRlfhfHW+WQ84KGTs TI26bQXjoSEsi6eyoQz7ZbZl QJZjTJA8qXvyAIfui5RnPKTiT9 2oaTDqo4O1ZYNsoDdkiTCtGcHd qML9aE4dIZsjwrtwv4lsudtr Huzrc4qbqz09aP54P28hPRhzUH QaMLC3ZQYwHSFdcYfldq9eiC8a Ii8+DTtjd2acs1mjyPc3QoEe BMCskaBfiYroHBU4c6MpYd74S1 BrbFndn6KnFhm2cv36qJCjw2W5 mGB5ULgjLFCkgY4sKKntDsO3 ANJhTxXzdB14gWUdGCubVu9uiF kmmLfcYR3fHQGazzleWESnxC1r DIDjlGCmyDwzZM0zYDQdsthp t305BkTqRIY8GIOmrYZgB3NvuZ 0hZkLyYNUvDVZsT6SkaAQpJWua O053EVzeSgG9TFGdqxQqN7Vb JBWbvTlsQaI1r3L4Wk2Oe4Bofj ohFQJ9OZcyXLKeReIjRvRkMpP1 F1IiFwc0JDXyrWhzQD1bY8Jx XTEogzitbgkymPG8HLZlMVHxnI 98dKNyZFpgSv0uy4J6b911XISt BEDljR95Em2ulXijUICmlBAQ cU7qndttc0yuxvuaTdUdVNGoBN y6ALa3FXKmfYgzXpUpVTF8WmB6 FQC7fVKtwL7qzNinpadllQ4w Oyc+L62bqG8jXSH2EXC8wvjwAD CrquReKH26HE99N7QcKmorgNDi bGU+SMUugqIviRusKD7iEwQh q4nsu8MhOCyuA4QxZSMpXNisHy g8JSTeLCQ3hZA5hX6oCYZaCPho k9F7rQN5F4JhnfNzxy6iq9ta MVJlNDonN76ovFXsa4C5HPLaxJ H0TOHsnYciEqQaqQ45Kfv+PGNv zNzjk5JeDnqku2jfh4jwuUo9 EhZfGLZqqxExqUvrRVP4v2SyXn 28L07zOOlkAMMbLBGsUBLtIHEu qHmxfu1alY5ePh5+PGNvbCB3 vFS6jX1vDYQwQlA3KZtsN708Rg SkpHFfFkbir4unl0uitIq6SjLe LFJuyfVcqNtcWXN8c6MyMn61 N66sIQssSHWqABYyMIFoYDUbwR rgpb5rbT6zXh1+NH4ir2xdwh68 pJ87jGQ+YYBwVPG9zRxmFTfn VRQcsR7lHZwoAvN8YBMxEsVreX 52mFZeWIyoTm7jnEkdjYmtHD3i XLHsshlht294AeBwc2pdIDYp xZGkHMchYUC9C13ls3A1QSYcNC XeBTU3eHA7rR7afAdxfgrghIUb lJkoiiSjsVyaCFptDVoxT776 IHRvcDsnPlBhdGllbnQgTmFtZT j7A6ViBal3LQLreKzjOT9kgFCt FTvxJo8jlCsgzLauIN8vVPDe ttrcv670EfNur8abWHXplSZnOK utWNA2O81dc7I0VQNeRSJuFAJ2 iQI2dY9teBisbxfhiJLtzYgh jbLsiTcuREjgKNnlP440VXYuvB dwGySkyaTeNZTrmAZ6KJ57ZO00 pANsm1B8nMG6R2YaFUWzbzpi flxvtKS2ZKDoGNYybH16Lx7ofF dlBw4qTNFuZNB9SZGwtVMhE4Ms zK0dWsHeNJUrDBYlS3EkgOKh RPscV008GYbtFhM8KWZpnrXlF3 DwRQPyiMmxKeT0s3L2Ub1BT6P3 CN10HH55kURnq8H4xRR9J9Tl JHYeleurawxwcQR8HNIaWTInnC 37Hm9gwYvnYa6nNOZhDGG7IKEb kPAqC7UtvU0uWjQeIFObRSEv P1XrdHDqNCcoP563DMkgOyC9HA JlyhOiV4YdHMLclEgfPjQ3k3Y6 Cm3TZQo0JX96AO29kHGmc6B6 eUR3S6EgFFOlueyfqsnlhYW5AG WlVERgtC76Yd2kmCkwIx1yRZWp OZA2QWUpcDVeG2WxaG1nEoRs MAUnBJObY2ZsdDRdRYmrG606NF ahAwT7BMDuxeZdW1FsCKKjxVht AkL2c2W9Xh3GKPRuMU01EHA8 hBM1KY34ND55F2OqKxllpWTzmU U+PHRhYmxlIHdpZHRoPScxMDAl UkKmsDgxHS8uFj8bQPAyLGXk mLvosFYlEzSvw5eoZSPkLNltNE 2szKrwN6RcxUH5EKScd2o0Ea99 J84zW0RyqUE+BFLtwYF1gYT9 gC3aTzWkCpW0FGvqT741RfFbgL ZxKtreh5sdp1ftlXa2DoL9CVYx asAxxMuaJCT3e1MfLb77W94p IHdpZHRoPSIxNSUiIHZhbGlnbj 8jtL9aXr6+RLCteLJ6sGV5eO6n YwLbBhA8BUauB280IwGgzJZu Oivak5jmn8kbvAs7XqHqXFFskv AhcKwdALD0o4ZpOp61M5HmnVmn c2LzPij4hd51dKFoi3L9aKZ3 N9XmUTWoiobflAVsyEkkUR0eHO HrngprWUUyjV0pPXEmZ3f5KeXu OhH1QQhmJ8FadrE1UUFwxFDu MHebEBH3H62xo6P7DMPzXDMlJC M9qIO8sT4voVmkywoccERjpSea lgZqjOjyQPsvRBioR423QWRs bCkoEVUndM0mFJJrdUDvgXlpXP 4wNTBpbjsnPldPTExFTlNMRUdF TCwgRElBTkEgSjwvdGQ+PHRk NNB8nDtgFYeqRPGlxN6oJHCsG1 w0FjRuVkU5UJbvS3JwBAGaxsrs Ph95sT0pJcHoKdZ2IFjdR9Eo bgI8UAXceBZuHQkxKYB7Y30fa5 G2PCWkDECqUKM3nYA1xP9kbQwq bjogbGVmdDsgdmVydGljYWwt EAesF969YBDbtThwDxJnHbUzRb A5ROA5Y5GgLaj4UXGktNxhJW3e fRVjVFctMj7knMglwWvhWF1j OBLsmqrlVZJqdX0jIPXogEMwbH wvCE6mYGArgwpeb931OvAhKTO0 NYNxkZMrI7CtjG1jGbCnPCRt BOOgE3MquUKoBKdzV271CUcxXa E2INBkjbZtT3MrTLEyrDxuDnK5 d9L7Sa39IvFUBNQbnwoyuMZ+ QPVgAGN8eOedJZdyLAUrdX6sIQ LdO8p0FpJvOuN2BPvoC3HgYQGp rmbmNo19fE7kEmMpIjH0KNvx K8EeqdR2RPVltYKjYGckGHD1D1 8kv3T9YCNdROMwHHJ9iMW5cU8l bGlnbjogbGVmdDsgdmVydGlj GAwbUEncA833TMAurLcpYtOzoO FsZTwvdGQ+GKHpZMS5gRpxDRpm PCIieX2jEAPjZ3l8TqQnDsG4 MOoeV5TqUILvexzdYv75mR9nVk CoJdE5PHnkH1JkitF4JRXqbLMy YUcnULM5K47ah8P8RTGoBFJe RHB6sKW4iX2cjDgrkagidNVnpM kunhNjhXvkYZhdZZqbY109QEEy gBiuTr0su0WtbfE7wA6lVU18 RZ07S2QjYrzmvZIjzEH+PHRhYm xlIHdpZHRoPScxMDAlJyBzdHls PO1uPj6qHYAdZECxwRdmzLTf ZtXoh0icAPYgXNgwDX6vcQvcC2 OfeJA9YXAlp7p7Vf00E57yO4Fj dXA+WHYhcMU6cGV9oI9qZkRr VzF1CGahE425CiDpdUDvBwgau5 fxj0pbxSe7JiDfJUOvaeAjhUdp OAJ7f1UbIi05D63rYYcxUFBz VFLoCXFyPUOnnYxlic3gcY8hQf 8+YFIcyJH4sKY7sB7gDnZhGrN7 WZqsA647CgUpeIEtYbvgV51a D8EadQB+RBJcMvc3HKYzoSbtBM 7faTBiBQhiSd9dFEW5ZbDhKgXm DNwzU4XfDXMyszyqmntlcEI6 SGKzMEGzaC88Tj5ivFmcIi2vYR XgSTC5QQMlqYNxH3LlzO0rMgPr QUKnLVVnZ4FpqSHpIXpoO377 BKtyZaJ4WFLnjgJiV9IzQHGrvR edTjW3n9A3Ob5PrBpchKEzRC0c WlTmTBm6U0YbBdk1RLEclPyn RD8bnCMyAEkqSv4uaIyirSzhUY 5eHWOzxhojo348AhPyf5ivBKRk tRPlAKnlJBN6Q30vt2H8NUQe ODZgFMS0xQA5pZ7ddJycxwanuT InnMdsidLtoHgvIExoSBmdG260 LFLcgZeuKdODGsl9Q8LoUax9 CWMduUdcJZ3xyPAbMZcqRt6idC tvoQpcOY5lIBXtplskr410OeBu q9hzSCYyvHUhYFadRYA6L91a b5B7KVDxHRQkDAR1eUF7hN0clD lnbjogbGVmdDsgdmVydGljYWwt PWzjE917SWSemXksWf8LJqb1 X6TwXnu9YDDrbJztTQ9rqXPlUI dgAw3fpRvnaPjuLF3gRZMkfgql j177DlXci1dyZIXzcDQzYGjp PKC6F09dm3V2YIZfGLDrHXP1mU W4qT6ocZnvzbpbsANnzRivznEn xCozMUczGQlxU468CFGwzFak PlBheWVyOjwvdGQ+GT60wq21S1 ZeSplkJkj6PXMoWEH4tJE7qV6p HGFxXIibp1K9wND2U9AxwuTk ci1j (more content not included)... Normal [facility] Coding Summary. [id number] Gh0bWw +PGhlYWQ+LE3JBJPiT76gsLJcx I5KI0sDLR1SLMMCNWWNYR0ONB5 pvVE7QPaoS5DrpdRz BqwkjELxWU69GRo4HGU3mIqpHA vqvN7msMUuA0k1DuEeKC25gK49 ENjfWGJzQdS8RtGmbouuwRAn S0jpZwToaHCaDae+PHRhYmxlIH afYLXeTIerEZTsAgHruOvwAM4l Tq0pFUHfFEUgaAupaKVwUjUk e6quNEBrHFmwZH1mcFiiJ7CjpD Z7XEIss7l7Cc19xPN+PHRkIHN0 wQgtVHrjc918JtUlv4ngJYH0 hZIuKApiPUX9L49nu7G2BSWsNT SvABQ0xNC7bO8chJekjhkiY2Lp mHVlIfJ8CLV8uRSfsY7nwSaz niixdI3dHne+S46RDB4JXENWNP 5QHuz1F6PcNwnzdJE+WA21NPBd OE39pFMorYPqz4tmpYh3RrAl MZIhJJS9wCgcQXpvh8PwIPUeB5 9rwUAmd9Q8CWIpqXvwhIGwPtUc fKP1aQ2nRCxuudnoe7poenzj Nresu3qfbp78hM30R36wSBxvXV QmSHX9VKKpPOSrbLxaov8mfO1f Ii8+AZyxd0vkp6qjrEq4OaXl PGCfdyRkbZkaZRQ2f6DiFd68O3 XqvKpou2HfNlr9le36hWGhb1S4 tKE5GPyrOOFzbK4nZSvrDdV7 AKAfDfArzO91mMOhZNsfRe0rrM peoDckLZ1rGAZdiynqCJXljJ0o SWAhkJGnrTdsNE4xRWQbsqme p019XrQqGKY3CVQeiSAuS6JtrS 0xMiDcFQXbBOHhU7ZphILcWHzg C873YBwlAkG9AOUytnEqF4Xi FRWvlRndXyE0h7K7Ig8Gl2Zmlj wlOPN6VMkpSMYwXiX8ZcJgHeR0 T1ZrAlo8FNVqdEllAJ4fB3Dz JCHkrmtgliifsWX8GFDiWZLtuJ 47zDQlZCfaSj1ps7D3g671XBOg QIExkJ95Bt4ndDnzLZWbkALI fT7zwasdz0mguhorWlRhSACdKF a5UZa2MQLnqSdoClGkJWX1NvI2 DFN2bORhfA2xdNqxxcekuR0l Oyc+N42udQ7vJXK3YSL4ugkqYF KilxXsTF10ZD51M4DwIdnknZBy bGU+YTFldzPwlBnpIK0nNjAq z0nwg2LuYWelA1LaCXMhXYmyNb q3JMWpGVI5tYM3rF2lBYBcHWdd u9N3pYT2R0TaciKvac1eh6gc WBVuYTrjM22mtIMyf6H9WDLbjA U0IRHuiLabLpZeuI73Okx+PGNv aKtkx1NvJgkgr5vss3kjuHw7 AcAbVUYamnEtvGaiMMF0l4BwCq 63T45uUIkzVYJkRMEeHSHrSFGh sVbcyx2pzG3tGf8+PGNvbCB3 mIW5zD3zQTOyHcC4QBroB212Sg CvlGCaTujio4buj0dsaOq5JvWd HAJqyuSixFijMQF7l5ElXb97 V39uHZhaESAwFONdSMReIAKukB zbpy6fzS5kYr4+AK1pn7bucd87 tK79eCV+LSLaFSW0aVrlOPtv KHBhnT9nLMupYpQ0KKRnYwEpuV 37fKKsYDrsHn2izOwseSrjRQ5n PHLcyrncm751KuImc7jdXBWa lBAwONpeMOR5Y09pt7T5AZLcJI RkSIR2zHM7tP5aiHcyuxfnfGUy uGssxoUiqEyeOVhwKWphT128 IHRvcDsnPlBhdGllbnQgTmFtZT s6A2MqDws2JXSbkRtkNZ6joZEs RMetBb5pkNiubSqaWS5jAXSg szqsc406FdBqn1ulCIEedKYtZL jiFAY4Q27xg7C9DGAdDDKiDNT6 vXM5fH3nfZhbvolezOKwpYfx kgJkaRhiLQyyLBzmJ922XLQgmD xpLcSzplYdMYJbdLV0FB53BH53 lDGjc5L0gWV8T0ErKRJwkxsm gjbjcLP2MMLiHWSdpF66Iq3woU afYb4zPORoRER6YMLynSYpX2Gh aQ5gVvVfUCDfESNzZ9VhvGHf ZWxvI482MJetRsX7FZElfjGgP5 XiTIHifLeiOhP4a6O2Ip2NG0S9 DA49QX07dPBjx4Y0cJW3R6Ba YIWbwretdwdrtJD6RAJbQWZgvZ 92Vd5pfVlwKn6iVEPhEON2XEMi mXFqS2GnoV4nSnGsIYNaGLAj A1CwxQHdLHmmD935UYztJqI3ZF MfyfOzS0LbDUDqvKcuTrN9o0C4 Zm0HYEm3PZ32VH57tCLxj8D6 yIV7K0QoTODrldsthobxuDK5QU SyPDIjtH61Mx9xnFqcJb8pTTQs MOS9VRMcyEFoR4MzsM1cAeZz NYDbAEAbJ6HvgOScRAbfI829PK yjEmH5YLEytxTvT2XqLMIkwLjr DxF7r1U1Xt7PXWJbJQ36VRY3 qQT4AT72PV74S7FbIcnmlWEofY U+PHRhYmxlIHdpZHRoPScxMDAl CaWcqTguKG6cVm8eFMTzIWNg vNlwfZZkNwIqn2gpNHCpUCkoJR 6ipXiiQ2BfrBL1XMUnb3e5Zs56 N10mQ4NtwZS+XDLkeCR5wPT5 mD1gDvRhOnJ4ZDktA002BvKctN VoShwsn5tqt1yuiQt1HqB3ASKh xkIufPhnKCX2x4LnOx38T47n IHdpZHRoPSIxNSUiIHZhbGlnbj 2otH6nHl1+QIEgjKR0oFB5sQ2v AoClHxX0EUbsR528DkFzrSGz Lqyna8fwg7snyCl1JiRsNINcbo GvbKoaBRB9r2RvHb36N4IpoWhn s0YtZjv2xn42uUClx4Y8iPZ3 B2SgTFWkvdwanZGasPwmKV8xTH VohssxUALjiF4wOSPyI6e5AxVt LhO7HAznH3QsnjO7EOQsfKHy VNmaPQO9T90vj8B9WDTwEIClGC Y5aAQ4nM0xvAmnjlmyoISqhHil wfLayOnrJGwcWKzsX347NEMi kXrzGZApfO4pUNZwjXRwkKkhUX 4wNTBpbjsnPldPTExFTlNMRUdF TCwgRElBTkEgSjwvdGQ+PHRk MIQ7nYbqPIscZWHngZ5tKUGpY1 i6LhJfZgU4MXjuA8IrYKYepeiu Sv69xU6wUoTeMjG3DIhfQ0Hm vhK3KGAdzVLmHDobNQC5Y54hx5 T4RVCwATSwELK1cNW8zL6cfKws bjogbGVmdDsgdmVydGljYWwt LNpzY247RQNzuFgjQbYfEdZsQg S4JNE0Y0CnQcl1WURcdLjkBB2e yWZzTWimIb8maJazzOveRL3r TGCixcfuYIXtvC0zLBBxsVSkuN naUE1nDZMylqgvr029RqAlLYA7 KDUqnOFlT5AgjC3vFxOoMPZm APCtJ4MafLQcIBilA938SQivYx N5FTGliaTvR7KlJXJmaJlbBzC6 g1E0Zr66XiPWGDLqsmqjqFU+ DYFvIQG4xEqgNRofBKTqkS1hWS WbP7n5RiHmWjK8KLhxY3ApJKNd uyniDj04fG1rEcYkUrB0SWqp D3SvxdF2EXHcgDTuZYkiDEU0V1 5ug7V3ZSIrCKJgYRL4iOM5qG6n bGlnbjogbGVmdDsgdmVydGlj MFmuBOsmC850ACJhmErbEdCnbQ FsZTwvdGQ+TTXgDQQ8eCioKJey CPYozU1rFEIlK5f4QzXpFnO9 LHewP2WuFSLnglomDk47fQ0bEv ChCtU3FTehO3TeakO7CECvbVYp LEgxWHJ0M26im9Z6ZKNfPNOl OBI1wPU6zH6cfUagmxzcdSThlW djpjTrzDgbHHeqEXtgB772AIKy mRtmDa5xv6TswaL5xM6ePB13 IT74X0XiAydirUSnwWT+PHRhYm xlIHdpZHRoPScxMDAlJyBzdHls MP3xJq2ePLEpOVRwmPejsFXk UwEuw6ddIXPpNRrtRQ2jfVrjS2 AstZU2WVKjb6q4Ro81J25zV3Il dXA+UVVxjWY9jFD9wP6bJdRu QgS3YBmkL031UrWjbVKbZhvdt8 gkt6rwbBr7HlEcCDAzlbOcjZko DDS5n5OmTg98N88fAWlzNREc SEJpGVXeFHMjeAatnb1bcG2nKw 8+DQOyuRR6fOK8fO5pXcLmOgF8 VSksY364NlBclXZlWfaqK59e L8NobZA+UCIaKcb0WRXhlDlwWY 7jwIEjUHutJg2qZYB1VoEyUuLs EAjdJ2OjPOPesncaptdcsCH5 JWCyHNVenX62Sg8rqPzqJm2dWB BwCLR6RUApqOOxN8NunC9tJvGj RGTaALOfQ1QlwIJiUOcrK411 SFgkHrA4PVZkosOeN9SeRRVboU snSuK2r4B6Wu6EzZtdzCNbQF3i IpGuIXa1C9UdPgr2OALsoHwn UI9niHNcXQxtSj1zoWpetEjmZU 2aGPIwlojsm476BxAxi5erKOTc wOZpHHtdLLX9M88tz8E8ZATg WQJlGMR8qKY5lA6ahIpcchwpxN ZthOuwnaDefMqeVGjzXEthL274 VYMivZruZpRBKhk3E8NcNln1 JJIgeRqvAX1hgLPeURkyNj6nyJ hgjZydYW4sVHYpdqjbp325NdRr u7ojMFEsfTFyHTlmAXJ4J47t p4X0QNWwIPQcQRE0wRC4tN5weO lnbjogbGVmdDsgdmVydGljYWwt DMplV365SXSzoNukPf4QWak5 O2IeJik7PZAwrLfvIG4edRXfCL xqBp9nqPdyuMagCP4wVVGwkyby b187IdTpn0qoONVcsUItIKro UQV5B22rz1M1DXSoFTIyHVM5lC B4pU3ygYvphwvxlUWokZgdavLv pTjhHKjzFJjxU386HMLslFeg PlBheWVyOjwvdGQ+CN39an00S9 OlSvlkTtb6QFQxKFQ6zZZ7hK4j UVEvXXovu4T5iRY5I6TyviZp ci1j (more content not included)... Normal [facility] Coding Summary. CD:[id number] Gh0bWw +PGhlYWQ+DK5UVADjL32ciOBgq C7DL8tYXW2UBXPKDMJHPE9KFW9 klMM8XXllE5UjxdIp LnovsHPzKT61AWi4AAY4kZokJS czkX0aqFKoP7z5LrPxEA43xK28 IWpyMDRuEpN4ChYgqyttrSFg E6inJhJyzYRvOoh+PHRhYmxlIH doOHVwGAyzWYMwFbFeiHtkCU4z Tc5eQSPlVPWrfTmraUCnQpWd q5lfDKUxGTvaAD0irNxpA5KohW O6ZBWno0x4Kw72wHU+PHRkIHN0 uJbzMIeyi337KiZat0umREJ8 tLMeTWicOTJ2B94cc7J2COYmSH VaGDJ3xRK1uW4qsRvldpnzJ1Ii uFCgHoO0LUX6oWHefX3atYxy ldeedR2cSfl+M35MPP0XEDMBYP 1GSxb9M5VoNbbxtMO+EO42GCYh XM64hXQokPSbx6kyjDr5SoNg GHKnMBE6pCvlKBnfs8MyEDFpP6 2wdEXwi3A1SUVphMzorQWvNxAs bQZ5eX7zUXbgokpkp6zzjyla Ihqll3tiiu96hP36O25iBKsrKP GbRIK8OKJhEMGhrJdrtw7kqQ1a Ii8+ORpdm6iml7lfnSl5VqTp PFSgbnPnlMtpYNZ0k2WhTs98U2 JuiKbaj2IxYgo2zo87kFKhn8O8 hIS3DZeyPCKxzG6oNNdiVxK9 WNVeCcNfqH67yOUpWQwwNn4skX mmpImgMG1gVIPxbrtoQFBhyV6e NJMtoBPcjMyiTQ6wWMYrqlby b388HqJgCWW1SRTkjOPfR3EecI 5iDfDsGPVkGCKrZ2MloNFwSOhf H420DIbbVgH4UFXyuxMgD2Se SUJfvUynHuX3x3W7La5Mu7Agii voATM2HQhaEDSlIoTtFwAeEgF2 T9ToFzp9NXCsvMbdVU8eE1Wn UIGhytcqrgandCS5NJWiHZJypF 33hCUsLAgwAc5cr2E4z497JAOc UGYgkG79Tx5lwLgpAAXaiHEH jR8jvnwim7txvpueDuEaJJMiOA k3HYg6GIBltTasMpKuDVP3YpK5 HLS4hSPlgQ7ifDipjelukC1o Oyc+S76stH1lRDJ0KEC5iienNW UuqyXsWP41XW81D5RwBpffgVXr bGU+ECEhenYusWgaMS9iAkRl d8osf2GmVEieF0NuAVFmNJlxTh c7YNGdOOX7fBD6aS8yTKQxESre v8C0pLA8B2DqjyIfkr1xu0dr TYVuXRxiS34wrJJvi2V2JITsoZ Z0PLEcbEscOlBjnV86Gcz+PGNv iZlps3UyCafoz3jza1rekYp6 IvUtEPWnjsEqoWtuLIA4y6MrYj 49J92qWYyzJDStMCLlEGWqOFOi hTnyyh7uaH3wQe1+PGNvbCB3 wAL5kJ8uCCNfKeZ5XRxfI055Px XciPRkEklxe9hes6voaBg2SpWk VTZrkfLlhYqmNYD5b7ThCx01 V05zFWpwHBJdXCSxKBQsEBZbdU vope7fiC7gKf3+PQ4ba6aczn02 pQ26lII+ONEsYRI8fYnhIJeo AXAscK2eKUdlXvR6KEKbGtRjdR 73gHKgQKmrWc9kkBjqtNrzBT0d PIImmdkny726EyJbi8icSTWa dAVvUReaVLC9Z78op9F8XSSoAE LsAEI5lHT8mS9plHzavfhoyVRc bZqnpaSuvKcjXGpxIQnuF463 IHRvcDsnPlBhdGllbnQgTmFtZT x0V7EaKcl3GOBagIgoNF3vgFOb QLhfFj5xpAoktQwhAI6vIMLx xlqrj499RcBbt4bdJHDpwWQxDX obFHD5M22zd9K7SJSwAGRrQJP7 wVC7bX7buMcyheqmgGSfeZkt tfJcaVsfIFboTZzoY553KOPluL zxKcMqgtYwLNIpbPH2OO38PU37 uHGrv9F2aDI9F8PaRMKghzdz jpooxNV5XTZpKIQqjD44Zc2hhI zgBr8qTEDdPNO4RHXhuDLhO0Zo pM6rIiIsNWNmZFJvV5OazPSv JTxaJ248KSiyChU8QYPctvDwW5 IvWMSseOnlAmX8r1M5Rp4FL3Z4 ZG59IT23pZIdb0T5nGW1Q8Ix VYRcwzdtapqliYJ4SWNpCOEroQ 20Kl4qeQjaSy5rLULyATR3CTMs cAVyT9HrhZ1oEoWuXIOdTQUx R6NveXDsWYkaN600GZygIfP7QM UdnaHnH0DwICDlvWxeZrE2g8J3 Ag0TSVi7IH73WE92lERbr3Z8 nVG6B9ZlMSIbkqvrsgtkdKI3FK IgOABasO51An3ntIhqSp3fAIDx EDC8VLRsuZWwY4JivL7qYiYg ZUEwUIVoI0FvlOWmTUugA298LH jdBnS1FTTyxrFdG9CrEOYhuXng MuM4l7J6Sx1SUOLfBH13HPS6 yUA9AS99RS59T1QpNzcokIEesN U+PHRhYmxlIHdpZHRoPScxMDAl EfZfyYljZO0sWx5lNHDqOXEm aNiyoCHnKtDwp5dwEFWtFGyyGL 7wgKryB0IanHU9WCOwb4j5Gy41 B26pC2KozUM+YMUahQQ6kWY9 iY3oJjKvPmL7FOsiD559EdNojQ HfSnzwe0gva4wrxRs2HlX7PZVd hgShnSutXTT8l9FqSn82D99w IHdpZHRoPSIxNSUiIHZhbGlnbj 8lfN5iAl2+FAIheUT1oQJ0iC8t WgWvIxW7KEvfR401MjBdxUJx Ngfbc3ryd6pxfJo7KrXbABEpof AedCunEUM7r1KeEn43W8JgtNub e5IkJgs0tu53gEHbd8T3yIG4 H4SoDWFgtkjzeECueZktQT6hFP FrpmbjFTRqdQ0dJQTyB5z4XgWp MfN4VRppP2VocgJ0YGDuyYFh EBhuZRE3L07ia1U9CBLxMOSpKK M6oPV4zT1zuBcnnuypeGRaqTfa zxEgwHfwXHicPScnL710MSJw pRvvGMDftV1tHHAzpPFepEhxGY 4wNTBpbjsnPldPTExFTlNMRUdF TCwgRElBTkEgSjwvdGQ+PHRk XAV2oVcePFjqDEWdxY7oRSNxI1 z6RmNeClG1XNxdS7IcXRZwpxtb Wg53tF6uYwOrRjD0DTvoY7Jy nuG5BUKptEZxVNlxHAK4D35bb7 G6OJVqEQRrGPE0iUH6dR3oiDja bjogbGVmdDsgdmVydGljYWwt SQdhT495CJEbeWerKhSaNrFtYz Z3BGY0S9KvQhx1VDSpfGumDH7c xWTlZMxnHs0acMlaxRemGK4x AVObltttKJAqpX6kRJJbmLLvfO amFH5mOJWctanic343QtHwFBX4 GGWcoLTfA7AfaO4hHvNoHBZf SOLwE7PzrAWcJGmmB839IQufMa K7RBJhcbVpW4GpPGJshOdbYdF1 m8R2Sv54LlICTNGjmvzpsQF+ SBPrINH0xSjdDSjfUBOycJ0pJV YpM8q9AhCoMcJ7KLzqN0KaWHFw hbfnUs60aY4gQnUrArJ0NWqm D9PfxaJ8QPPubUKlEWtrOAQ2U0 5wf4P8ULHgMPJhVEL5bEO9rI5a bGlnbjogbGVmdDsgdmVydGlj QXqpBVlxP420WQZzbWhvIbDekV FsZTwvdGQ+RTStWMR5eCcoFDng CBZxxV0hQATbJ6c2BdBeIxR5 JEsjF6PfQPFtjkfnLf78eY5fEk BdFnO3HBmzI0KkmkO8OQVwzDNo BUzbNWY5I57zu4G9AUJvJDQd ZVE4gQT9kY7zxKnynhicuMVxdP zrloBezZxhCLniZBkwE199VPBu dJbkXjQkNoFvAZXluhfuI3Dg AJMMZWhxI7RkL7YxzZsgvOV+PC 42rr82X6VcXmyqQgy8WPNrIFY0 dNP3nV0tYFDbURbec0R2bOL7 Z2IkbiMnca7ia0qeZGVrWNqjT3 9jpIMoh4K1QVTagPT0CYEflThi KuPxyW03Eka+TPIicRzln1Kl Nspia8qxc8wvoIa5PdAcFQUdmb OowLnaRUZ6c1ZkNt93I51hDTiz XIYvFARsWZAoQEHfbXhjfw3v vP2xCi9+JGRnrLQ2vFD1yJ3rQx UjUrJ7BMmqE487UgFgkCYiSard w7osu4odpIb9RpDzBOMdkvKt tFyzGXJ5z9NgEz10B1MvhEhhr3 AuTxy4lh68zEUls6O3hFD6X0Ix FDUitqdqjHUyoStcHU6vQESc zvlyQGNodL8gYXMrZ9w1RrCqNz N5PGocY5FzyiF9JXUeoYLfZPFf cKHMbY7xvmvhd0csvkvcExIt BYBwKNq1VDd1LDOmhRbbDgCdHS C9DtG9BTM4fFEnxM7rlNpgkrgu aA5pTvz+EEw3p7mguKMbQD8s iIP7PA98FY10zGQri8I0dTL0F1 CuHCYmuachvaxigAN1MJVkVQEl kQ05Nd2nwTorId9zSASsYFP6 AOAwjDEnP2NhbV9yYaLiLPTaGY TyT6MeaPFdROcfO485DQzpGlQ3 ZHGjleJbI7SvKUOpxFdfFeA9 m2K8Vv3QHU82VA39OX24xVWqx3 M1lNI0Z5CbTHRnljmkvrkzdAZ4 XFChZBUwiU02Jk2mdRclDs3d KTJlEJA6FPTofPGyM4HabZ4dSm RsXQLfMDBhZ9CehTNkVDdbG158 TYjxKlV2REIhywSwC2KwZXIy eWsnDhR1c2E3Xh8OUl15SD74NG 89uMHpn5Z5rHN0Z8HsHCTlnidx bmnmrPW4LYPuIYEgnN20Cg7z cCyxUo8pNBEgAUY7TBHiaTMyI7 WltA4sOaMkUSIkKWUaL0LxbSTj YHgkH293WKwlRbJ0FCCvdcGo D3RiWLXyfRtoDdG6i8N7Nj1FAD rijvy7T4NiEoxomLN+FM48OUEs IO24lJYmzTNdq7gfaTo5UdLy MCUn (more content not included)... Normal [facility] Discharge Instructionson Discharge Instructions [id number]#[id number]:127 Normal [facility] Lab Reportson 06-30-2021 Lab Reports [id number]#1.00CD:127 Normal [facility] Message from Medicareon Message from Medicare [id number]#1.00CD:127 Normal [facility] RAD - CT Reporton 06-30-2021 RAD - CT Report [id number]#1.00CD:127 Normal [facility] BMPon 06-29-2021 Anion gap [Moles/Vol] 15 mmol/L Normal 6-16 [facility] Comment on above: Performed By: #### 2 [id number], [id number] #### [facility] [address] [place] [address] Calcium [Mass/Vol] 8.6 mg/dL Low 8.9-11.1 [facility] Comment on above: Performed By: #### 2 786021, [id number] #### [facility] [address] [place] [address] Chloride [Moles/Vol] 104 mmol/L Normal 101-111 [facility] Comment on above: Performed By: #### 2 749159, [id number] #### [facility] [address] [place] [address] CO2 [Moles/Vol] 23 mmol/L Normal 21-31 [facility] Comment on above: Performed By: #### 2 687594, [id number] #### [facility] [address] [place] [address] Creatinine [Mass/Vol] 1.0 mg/dL Normal 0.5-1.3 [facility] Comment on above: Performed By: #### 2 549351, [id number] #### [facility] [address] [place] [address] Glucose [Mass/Vol] 107 mg/dL Normal 55-199 [facility] Comment on above: Result Comment: If t his glucose result represents a fasting glucose, interpretation should refer to the following reference range: 55-99 mg/dL Performed By: #### 2 627510, [id number] #### [facility] [address] [place] [address] Potassium [Moles/Vol] 4.5 mmol/L Normal 3.5-5.3 [facility] Comment on above: Performed By: #### 2 199147, [id number] #### [facility] [address] [place] [address] Sodium [Moles/Vol] 137 mmol/L Normal 135-145 [facility] Comment on above: Performed By: #### 2 750519, [id number] #### [facility] [address] [place] [address] Urea nitrogen [Mass/Vol] 21 mg/dL Normal 5-21 [facility] Comment on above: Performed By: #### 2 554683, [id number] #### [facility] [address] [place] [address] Urea nitrogen/Creatinine [Mass ratio] 21 No Units High 10-20 [facility] Comment on above: Performed By: #### 2 322812, [id number] #### [facility] [address] [place] [address] Inpatient Clinical Summaryon 06-29-2021 Inpatient Clinical Summary [address] [address] Clinical Summary Person Information: Name: MINAL CAPUTO Age: 65 Years : 1955 Sex: Female PCP: EFREN AMANDA MD Marital Status: Race: White Ethnicity: Non- or Language: Irish Visit Id: Visit Reason: New onset afib Speciality: Acuity: Enc Type: Observation Med Service: Medical Arrival: 06/28/2021 15:07:59 Discharge: Dispo Type: Address: [address] [place] [id number] Provider Notes: Diagnosis: 1:Premature atrial beat; 2:Kidney [...] day. Care Team Members: Attending Physician: Terrell CASTELLON MD Consulting Physician: Judy Pierre MD Referring Physician: Follow up: With: Address: When: EFREN AMANDA [address] [address] Business (1) Within 5 to 7 days Type Location Start [facility] Services 06/29/2021 5:00 PM 06/29/2021 5:46 PM Confirmed Patient Education Information: Kidney Stones, Jvsc-bu-Klpe Normal [facility] Inpatient Patient Summaryon 06-29-2021 Inpatient Patient Summary [address] [address] Patient Discharge Instructions PERSON INFORMATION Name: MINAL CAPUTO Date of : 1955 Current Date: 06/29/2021 17:34:14 PHYSICIANS Admitting Physician: BIJU HATHAWAY, Terrell Primary Care Physician: EFREN AMANDA MD PCP Comment: Discharge Diagnosis: 1:Premature atrial beat; 2:Kidney stone; 3:COPD mixed type; 4:Hypertension; 5:Acid reflux; 6:DVT prophylaxis Condition at Discharge: Improved MINAL CAPUTO Andres has been given the following list of [...] Follow up: With: Address: When: EFREN AMANDA [address] [place] [address] Business (1) Within 5 to 7 days In the event that this physician does not participate in your insurance network, please consult with your insurance company to find a nearby participating provider. Type Location [facility] Surgical Services 06/29/2021 5:00 PM 06/29/2021 5:46 PM Confirmed Comment: PATITO Hightower DIANA J, have received the attached patient [...] By Mouth every day. Pharmacy Information: Other: [facility] Comment: PATIENT EDUCATION INFORMATION Instructions: Kidney Stones Kidney stones are rock-like masses that form inside of the kidneys. Kidneys are organs that make pee (urine). A kidney stone may move into other parts of the u (more content not included)... Normal [facility] Interdisciplinary Note - Yariel e Manageron 06-29-2021 Interdisciplinary Note - Clinical Tech CRM spoke with patient in room. Patient is alert and oriented and participates in discharge planning. No family in room. Patient white board updated, and CRM contact information provided. patient states Dr Castellon saw her today and plan is to have surgery today as was planed yesterday when she was admitted. Patient verified PCP, insurance and DME. Patient lives alone and a friend or family will transport. she denies any needs at discharge. Will wait for urology for cysto with stent to be placed. [facility] Comment on above: Result Comment: Elec tronically Signed By: Teddy ESPANA, Tequila\.br\Date and Time Signed: 06/29/21 11:22 EDT Monitor Recordon 06-29-2021 Monitor Record [id number]#1.00CD:127 [facility] Monitor Record [id number]#1.00CD:127 [facility] Monitor Record [id number]#1.00CD:127 [facility] Monitor Record [id number]#1.00CD:127 [facility] Monitor Record [id number]#1.00CD:127 [facility] Outside Recordson 06-29-2021 Outside Records [id number]#1.00CD:127 [facility] Patient Education - [employer] 1 08-29-2020 Patient [...] these instructions at home: Medicines ? Take xfyp-psi-hdmyhjj and prescription medicines only as told by [...] Reviewed: 12/29/2019 Elsevier Patient Education ? 2019 [employer] Nicki Tracy [facility] Progress Note-Physicianon Progress Note-Physician Basic Information 65-year-old [...] 16:48:00) Lymph Auto: 16.9 % (06/28/21 16:48:00) [place] Auto: 8.3 % (06/28/21 16:48:00) Eos Auto: 2.4 % (06/28/21 16:48:00) Basophil Auto: 0.4 % (06/28/21 16:48:00) Neutro Absolute: 6.6 E9/L (06/28/21 16:48:00) Lymph Absolute: 1.6 E9/L (06/28/21 16:48:00) [place] Absolute: 0.8 E9/L (06/28/21 16:48:00) Eos Absolute: [...] and scoliosis. (more content not included)... Normal [facility] Comment on above: Result Comment: Elec tronically Signed By: BIJU HATHAWAY, Terrell\.br\Date and Time Signed: 06/29/21 11:13 EDT Troponin 6 Hr.on 06-29-2021 Troponin I.cardiac [Mass/Vol] 2.70 pg/mL Low 10.10-27.1 0 [facility] Comment on above: Result Comment: The 95% CI (Confidence Interval) PPV (Positive Predictive Value) for myocardial infarction in females is 38 pg/mL, in males 51 pg/mL. The results should be used in conjunction with clinical conditions of myocardial infarction. (Access High Sensitivity Troponin I Instructions For Use, Lucky Oyster, March 2018) Performed By: #### 1 [id number] #### [facility] [address] [place] [address] Troponin 9 Hr.on 06-29-2021 Troponin I.cardiac [Mass/Vol] 2.90 pg/mL Low 10.10-27.1 0 [facility] Comment on above: Result Comment: The 95% CI (Confidence Interval) PPV (Positive Predictive Value) for myocardial infarction in females is 38 pg/mL, in males 51 pg/mL. The results should be used in conjunction with clinical conditions of myocardial infarction. (Access High Sensitivity Troponin I Instructions For Use, Lucky Oyster, March 2018) Performed By: #### 1 [id number] #### [facility] [address] [place] [address] US Renalon 06-29-2021 US Renal Exam Date/Time: [...] Transcribed by: BOOGIE Technologist: JOSE GUADALUPE Caceres [facility] XR Abdomen 1 Viewon 06-29-20 21 XR [...] V. Transcribed by: BOOGIE Technologist: CHECO Normal [facility] eGFRon 06-29-2021 GFR/1.73 sq M.predicted among blacks MDRD (S/P/Bld) [Vol rate/Area] mL/min/{1.73_m2} Normal >=59 [facility] Comment on above: Order Comment: Order added by Discern Expert. Result Comment: eGFR is race adjusted. AA=. Performed By: #### 2 204139, [id number] #### [facility] [address] [place] [address] GFR/1.73 sq M.predicted among non-blacks MDRD (S/P/Bld) [Vol rate/Area] 55 mL/min/1.73 m2 Low >=59 [facility] Comment on above: Order Comment: Order added by Discern Expert. Result Comment: Yard Assistant renetta kidney disease could be indicated at eGFR's of less than 60 mL/min/1.73m2. Kidney failure is indicated at less than 15 mL/min/1.73m2. Performed By: #### 2 928134, [id number] #### [facility] [address] [place] [address] Ambulatory Clinical Summaryo n 06-28-2021 Ambulatory Clinical Summary {[id number]}CD: [id number] Normal [facility] Auto Diffon 06-28-2021 Basophils/100 WBC (Bld) 0.4 % Normal 0.0-2.0 [facility] Comment on above: Order Comment: Order Added by Discern Expert. Performed By: #### 2 611664, 2538550, 0995110, 45578034, 46164590, 0090867 ####[facility] [address] [place] [address] Basophils/Leukocytes Auto (Bld) [Pure # fraction] 0.0 E9/L Normal 0.0-0.2 [facility] Comment on above: Order Comment: Order Added by Discern Expert. Performed By: #### 2 109916, 7092583, 4840946, 07349434, 38503728, 5305039 ####[facility] [address] [place] [address] Eosinophils/100 WBC (Bld) 2.4 % Normal 0.0-8.0 [facility] Comment on above: Order Comment: Order Added by Discern Expert. Performed By: #### 2 166428, 7276492, 7329917, 73033806, 31192028, 9975659 ####[facility] [address] [place] [address] Eosinophils/Leukocyt es Auto (Bld) [Pure # fraction] 0.2 E9/L Normal 0.0-0.5 [facility] Comment on above: Order Comment: Order Added by Discern Expert. Performed By: #### 2 559784, 4945689, 6618600, 70890061, 21177354, 6024418 ####[address] [address] Lymphocytes/100 WBC (Bld) 16.9 % Normal 14.0-50.0 [facility] Comment on above: Order Comment: Order Added by Discern Expert. Performed By: #### 2 620926, 2841102, 3084033, 81769897, 90588481, 2075860 ####[address] [address] Lymphocytes/Leukocyt es Auto (Bld) [Pure # fraction] 1.6 E9/L Normal 1.0-4.0 [facility] Comment on above: Order Comment: Order Added by Discern Expert. Performed By: #### 2 742361, 1370736, 6257220, 46242965, 77605410, 3827879 ####[facility] [address] [place] [address] Monocytes/100 WBC (Bld) 8.3 % Normal 4.0-14.0 [facility] Comment on above: Order Comment: Order Added by Discern Expert. Performed By: #### 2 570595, 1879178, 5236558, 18854991, 16129460, 6039676 ####[facility] [address] [place] [address] Monocytes/Leukocytes Auto (Bld) [Pure # fraction] 0.8 E9/L Normal 0.2-1.0 [facility] Comment on above: Order Comment: Order Added by Discern Expert. Performed By: #### 2 637152, 1423842, 0564867, 95208029, 39173698, 3094606 ####[facility] [address] [place] [address] Neutrophils/100 WBC (Bld) 72.0 % Normal 36.0-75.0 [facility] Comment on above: Order Comment: Order Added by Discern Expert. Performed By: #### 2 405244, 5664300, 2997415, 14337631, 66114771, 1768883 ####[facility] [address] [place] [address] Neutrophils/Leukocyt es Auto (Bld) [Pure # fraction] 6.6 E9/L Normal 2.0-7.5 [facility] Comment on above: Order Comment: Order Added by Discern Expert. Performed By: #### 2 344759, 1654910, 1514210, 72395079, 57296560, 9177212 ####[facility] [address] [place] [address] BMPon 06-28-2021 Creatinine [Mass/Vol] 1.5 mg/dL High 0.5-1.3 [facility] Comment on above: Performed By: #### 2 814157, 7671239, 9009769, 93438677, 72734044, 0856125 ####[facility] [address] [place] [address] Urea nitrogen [Mass/Vol] 25 mg/dL High 5-21 [facility] Comment on above: Performed By: #### 2 872619, 1831980, 8763296, 84207832, 72350666, 7278311 ####[facility] [address] [place] [address] Urea nitrogen/Creatinine [Mass ratio] 17 No Units Normal 10-20 [facility] Comment on above: Performed By: #### 2 452545, 1334887, 6067787, 85564797, 32994683, 0093144 ####[facility] [address] [place] [address] Anion gap [Moles/Vol] 14 mmol/L Normal 6-16 [facility] Comment on above: Performed By: #### 2 982491, 1310956, 3134450, 64031635, 92234988, 7674063 ####[facility] [address] [place] [address] Calcium [Mass/Vol] 8.7 mg/dL Low 8.9-11.1 [facility] Comment on above: Performed By: #### 2 274352, 9101507, 7024936, 70149346, 46158024, 7610361 ####[facility] [address] [place] [address] Chloride [Moles/Vol] 102 mmol/L Normal 101-111 [facility] Comment on above: Performed By: #### 2 766468, 6998594, 8859788, 47493094, 33390446, 2194658 ####[facility] [address] [place] [address] CO2 [Moles/Vol] 27 mmol/L Normal 21-31 [facility] Comment on above: Performed By: #### 2 069341, 2078366, 2858703, 66325179, 05136205, 5467757 ####[facility] [address] [place] [address] Glucose [Mass/Vol] 121 mg/dL Normal 55-199 [facility] Comment on above: Result Comment: If t his glucose result represents a fasting glucose, interpretation should refer to the following reference range: 55-99 mg/dL Performed By: #### 2 794406, 3531364, 2837216, 02327294, 11197524, 5755864 ####[facility] [address] [facility] [place] [address] Potassium [Moles/Vol] 3.8 mmol/L Normal 3.5-5.3 [facility] Comment on above: Performed By: #### 2 620392, 1798821, 1400068, 95931834, 42826779, 5092414 ####[facility] [address] [place] [address] Sodium [Moles/Vol] 139 mmol/L Normal 135-145 [facility] Comment on above: Performed By: #### 2 239144, 4418024, 1403786, 50950870, 55410384, 7164672 ####[facility] [address] [place] [address] BUNon 06-28-2021 Urea nitrogen [Mass/Vol] 25 mg/dL High 5-21 [facility] Comment on above: Performed By: #### 2 898232, 1781399, 2506231, 06126562, 9381244, 3259182 ####[facility] [address] [place] [address] CBC w/ Auto Diffon Erythrocyte distribution width (RBC) [Ratio] 14.3 % High 10.9-14.2 [facility] Comment on above: Performed By: #### 2 275312, 2206932, 3284820, 46557922, 60876725, 4358321 ####[facility] [address] [place] [address] Hematocrit (Bld) [Volume fraction] 41.3 % Normal 34.0-46.0 [facility] Comment on above: Performed By: #### 2 300015, 8172391, 4690120, 93173196, 25811103, 4322232 ####[facility] [address] [place] [address] Hemoglobin (Bld) [Mass/Vol] 13.6 g/dL Normal 12.0-16.0 [facility] Comment on above: Performed By: #### 2 080735, 7492351, 7825936, 41080415, 97130434, 6423872 ####[facility] [address] [place] [address] MCH (RBC) [Entitic mass] 29.7 pg Normal 27.0-34.0 [facility] Comment on above: Performed By: #### 2 744241, 1825319, 6064635, 37196289, 04690235, 1529300 ####[facility] [address] [place] [address] MCHC (RBC) [Mass/Vol] 32.9 g/dL Normal 31.4-36.0 [facility] Comment on above: Performed By: #### 2 087183, 5269407, 9978144, 77428455, 84778903, 0614044 ####[address] [place] [address] MCV (RBC) [Entitic vol] 90.0 fL Normal 80.0-100.0 [facility] Comment on above: Performed By: #### 2 502317, 4410894, 0914969, 60038828, 91449474, 2900291 ####[address] [address] Platelet mean volume (Bld) [Entitic vol] 7.7 fL Normal 6.4-10.8 [facility] Comment on above: Performed By: #### 2 267747, 3123055, 9797277, 12230653, 68129538, 4346896 ####[address] [address] Platelets (Bld) [#/Vol] 300.0 E9/L Normal 150.0-500. 0 [facility] Comment on above: Performed By: #### 2 631742, 1101231, 8400613, 73085776, 12081309, 2194390 ####[address] [address] RBC (Bld) [#/Vol] 4.6 E12/L Normal 4.3-5.9 [facility] Comment on above: Performed By: #### 2 281922, 1358760, 5007072, 29958528, 98376153, 6728995 ####[facility] [address] [place] [address] WBC corrected for nucl RBC Auto (Bld) [#/Vol] 9.2 E9/L Normal 4.0-11.0 [facility] Comment on above: Performed By: #### 2 734312, 3138781, 1018183, 45719669, 85980953, 7749524 ####[address] [place] [address] CBC w/Indiceson 06-28-2021 Erythrocyte distribution width (RBC) [Ratio] 14.2 % Normal 10.9-14.2 [facility] Comment on above: Performed By: #### 2 828929, 4440669, 6788804, 92677795, 0007606, 5797457 ####[address] [address] Hematocrit (Bld) [Volume fraction] 44.1 % Normal 34.0-46.0 [facility] Comment on above: Performed By: #### 2 499566, 5524309, 0779064, 58734728, 7028162, 3194524 ####[address] [address] Hemoglobin (Bld) [Mass/Vol] 14.5 g/dL Normal 12.0-16.0 [facility] Comment on above: Performed By: #### 2 821141, 5520867, 4544898, 53645376, 3583961, 1072117 ####[facility] [address] [place] [address] MCH (RBC) [Entitic mass] 29.7 pg Normal 27.0-34.0 [facility] Comment on above: Performed By: #### 2 578014, 7623599, 8591080, 62585290, 3029304, 1355372 ####[address] [place] [address] MCHC (RBC) [Mass/Vol] 32.9 g/dL Normal 31.4-36.0 [facility] Comment on above: Performed By: #### 2 495652, 4641396, 2125057, 08116921, 3999068, 5049596 ####[address] [place] [address] MCV (RBC) [Entitic vol] 90.5 fL Normal 80.0-100.0 [facility] Comment on above: Performed By: #### 2 640184, 3551372, 6761597, 59636677, 1141738, 5604486 ####[address] [place] [address] Platelet mean volume (Bld) [Entitic vol] 7.9 fL Normal 6.4-10.8 [facility] Comment on above: Performed By: #### 2 772179, 2129257, 1637656, 65873520, 0444503, 9576606 ####[address] [address] Platelets (Bld) [#/Vol] 289.0 E9/L Normal 150.0-500. 0 [facility] Comment on above: Performed By: #### 2 962085, 7741054, 7816406, 92688540, 2466482, 2336894 ####[address] [address] RBC (Bld) [#/Vol] 4.9 E12/L Normal 4.3-5.9 [facility] Comment on above: Performed By: #### 2 321945, 7839958, 2038364, 96838765, 6825735, 4276643 ####[address] [place] [address] WBC corrected for nucl RBC Auto (Bld) [#/Vol] 9.5 E9/L Normal 4.0-11.0 [facility] Comment on above: Performed By: #### 2 358365, 5512534, 3610255, 73941889, 0985985, 9440934 ####[address] [address] Consent for Procedure/Surger yon 06-28-2021 Consent for Procedure/Surgery [id number]:127 Normal [facility] Consultation Noteon 06-28-20 Consultation Note Patient: MINAL TAMAYO Age: 65 years Sex: Female : 1955 Associated Diagnoses: None Author: Ignacio HATHAWAY, Judy Black Basic Information Time Seen: Date & Time 06/28/2021 14:31:00. Source of history: Medical personnel, Medical record, Patient. History limitation: None. History of Present Illness 65 yo F with hx of nephrolithiasis who presented to the [facility] ER yesterday with LLQ pain and findings [...] cardiac hx and has never seen a asset availability leader. Father hx CHF. Currently denies fever, chills, [...] All Problems Abdominal pain / SNOMED CT 05243896 / Confirmed Arthritis / SNOMED CT 6241808 / Confirmed COPD mixed type / SNOMED CT 73157905 / Confirmed Feeling of incomplete bladder emptying / SNOMED CT 740744484 / Confirmed Hydronephrosis with obstructing calculus / SNOMED CT 52639557 / Confirmed Hypertension / SNOMED CT 0157840370 / Confirmed Kidney stone / SNOMED CT 343156430 / Confirmed left kidney, Active Problems (7) Abdominal pain Arthritis COPD mixed type Feeling of incomplete bladder emptying Hydronephrosis with obstructing calculus Hypertension Kidney stone Histories Past Medical History: No active or resolved past medical his (more content not included)... Normal [facility] Comment on above: Result Comment: Elec tronically Signed By: Ignacio HATHAWAY, Judy Black\.br\Date and Time Signed: 06/28/21 14:54 EDT Creatinineon 06-28-2021 Creatinine [Mass/Vol] 1.5 mg/dL High 0.5-1.3 [facility] Comment on above: Performed By: #### 2 132485, 6048081, 8378629, 05167106, 4376926, 0830458 ####[facility] [address] [place] [address] Glu Fastingon 06-28-2021 Glucose [Mass/Vol] 102 mg/dL High 55-99 [facility] Comment on above: Performed By: #### 2 447000, 2477001, 9851513, 56189920, 6572747, 0795224 ####[facility] [address] [place] [address] Immunization Recordson 06-28 Immunization Records [id number]#[id number]:127 Normal [facility] Lyteson 06-28-2021 Anion gap [Moles/Vol] 15 mmol/L Normal 6-16 [facility] Comment on above: Performed By: #### 2 530319, 8538299, 6146452, 74503432, 9146696, 2130492 ####[facility] [address] [place] [address] Chloride [Moles/Vol] 101 mmol/L Normal 101-111 [facility] Comment on above: Performed By: #### 2 973328, 5838464, 5485427, 55375555, 1860622, 5178953 ####[facility] [address] [place] [address] CO2 [Moles/Vol] 27 mmol/L Normal 21-31 [facility] Comment on above: Performed By: #### 2 534593, 9650436, 6478966, 24709301, 3007643, 0463286 ####[facility] [address] [place] [address] Potassium [Moles/Vol] 3.7 mmol/L Normal 3.5-5.3 [facility] Comment on above: Performed By: #### 2 933168, 9398573, 0623102, 64928430, 0749510, 2117313 ####[facility] [address] [place] [address] Sodium [Moles/Vol] 139 mmol/L Normal 135-145 [facility] Comment on above: Performed By: #### 2 606677, 7062255, 1079650, 38871083, 2338099, 1593054 ####[facility] [address] [place] [address] Magnesiumon 06-28-2021 Magnesium [Mass/Vol] 1.9 mg/dL Normal 1.3-2.4 [facility] Comment on above: Performed By: #### 2 017286, 5082439, 8218265, 17558656, 77798024, 4258107 ####[facility] [address] [place] [address] Outside Radiologyon 06-28-20 Outside Radiology [id number]#[id number]:127 Normal [facility] Patient Educationon 06-28-20 21 Patient Education Urology [...] Follow these instructions at home: ? Take gjtj-wxy-wcjeyvw and prescription medicines only as told by [...] 06/08/2008 Document Revised: 08/23/2018 Document Reviewed: 08/23/2018 [employer] Patient Education ? 2019 [employer] Normal [facility] Troponin 0 Hr.on 06-28-2021 Troponin I.cardiac [Mass/Vol] 2.70 pg/mL Low 10.10-27.1 0 [facility] Comment on above: Result Comment: The 95% CI (Confidence Interval) PPV (Positive Predictive Value) for myocardial infarction in females is 38 pg/mL, in males 51 pg/mL. The results should be used in conjunction with clinical conditions of myocardial infarction. (Access High Sensitivity Troponin I Instructions For Use, [employer], March 2018) Performed By: #### 2 544962, 5794833, 2258899, 60421645, 05505721, 6749012 ####[facility] [address] [place] [address] Troponin 3 Hr.on 06-28-2021 Troponin I.cardiac [Mass/Vol] 3.00 pg/mL Low 10.10-27.1 0 [facility] Comment on above: Result Comment: The 95% CI (Confidence Interval) PPV (Positive Predictive Value) for myocardial infarction in females is 38 pg/mL, in males 51 pg/mL. The results should be used in conjunction with clinical conditions of myocardial infarction. (Access High Sensitivity Troponin I Instructions For Use, [employer], March 2018) Performed By: #### 1 5587789 ####[facility] [address] [place] [address] UA With Cult Reflexon 2020 Bacteria LM Ql (Urine sed) TRACE Normal Trace [facility] Comment on above: Order Comment: Urina ry Catheter Insertion triggered Urinalysis With Culture Reflex order by discern. Performed By: #### 1 9302297 #### [facility] [address] [place] [address] Bilirubin Ql (U) Negative Normal Negative [facility] Comment on above: Order Comment: Urina ry Catheter Insertion triggered Urinalysis With Culture Reflex order by discern. Performed By: #### 1 9682124 #### [facility] [address] [place] [address] Calcium oxalate crystals LM Ql (Urine sed) Present Normal [facility] Comment on above: Order Comment: Urina ry Catheter Insertion triggered Urinalysis With Culture Reflex order by discern. Performed By: #### 1 3098771 #### [facility] [address] [place] [address] Clarity (U) CLEAR Normal Clear [facility] Comment on above: Order Comment: Urina ry Catheter Insertion triggered Urinalysis With Culture Reflex order by discern. Performed By: #### 1 5711001 #### [facility] [address] [place] [address] Color (U) YELLOW Normal Yellow [facility] Comment on above: Order Comment: Urina ry Catheter Insertion triggered Urinalysis With Culture Reflex order by discern. Performed By: #### 1 0806998 #### [facility] [address] [place] [address] Crystals LM Ql (Urine sed) Present Normal [facility] Comment on above: Order Comment: Urina ry Catheter Insertion triggered Urinalysis With Culture Reflex order by discern. Performed By: #### 1 2692352 #### [facility] [address] [place] [address] Epithelial cells.squamous LM.HPF (Urine sed) [#/Area] 3-4 Normal 0-2 [facility] Comment on above: Order Comment: Urina ry Catheter Insertion triggered Urinalysis With Culture Reflex order by discern. Performed By: #### 1 5133963 #### [facility] [address] [place] [address] Glucose Test strip (U) [Mass/Vol] Negative Normal Negative [facility] Comment on above: Order Comment: Urina ry Catheter Insertion triggered Urinalysis With Culture Reflex order by discern. Performed By: #### 1 0771818 #### [facility] [address] [place] [address] Hemoglobin Ql (U) 2+ Abnormal Negative [facility] Comment on above: Order Comment: Urina ry Catheter Insertion triggered Urinalysis With Culture Reflex order by discern. Performed By: #### 1 8051739 #### [facility] [address] [place] [address] Ketones (U) [Mass/Vol] 1+ Abnormal Negative [facility] Comment on above: Order Comment: Urina ry Catheter Insertion triggered Urinalysis With Culture Reflex order by discern. Performed By: #### 1 7034341 #### [facility] [address] [place] [address] [place].plasma/Lithi um.RBC (Bld) [Mass ratio] 21-30 Abnormal 0-3 [facility] Comment on above: Order Comment: Urina ry Catheter Insertion triggered Urinalysis With Culture Reflex order by discern. Performed By: #### 1 7404671 #### [facility] [address] [place] [address] Mucus Ql (Urine sed) 1+ Normal [facility] Comment on above: Order Comment: Urina ry Catheter Insertion triggered Urinalysis With Culture Reflex order by discern. Performed By: #### 1 4184522 #### [facility] [address] [place] [address] Nitrite Ql (U) Negative Normal Negative [facility] Comment on above: Order Comment: Urina ry Catheter Insertion triggered Urinalysis With Culture Reflex order by discern. Performed By: #### 1 2741298 #### [facility] [address] [place] [address] pH (U) 5.5 [pH] Invalid Interpretation Code 5.0-9.0 [facility] Comment on above: Order Comment: Urina ry Catheter Insertion triggered Urinalysis With Culture Reflex order by discern. Performed By: #### 1 4252751 #### [facility] [address] [place] [address] Protein (U) [Mass/Vol] Negative Normal Negative [facility] Comment on above: Order Comment: Urina ry Catheter Insertion triggered Urinalysis With Culture Reflex order by discern. Performed By: #### 1 5152628 #### [facility] [address] [place] [address] Specific gravity (U) [Rel density] >=1.030 Invalid Interpretation Code 1.005-1.03 0 [facility] Comment on above: Order Comment: Urina ry Catheter Insertion triggered Urinalysis With Culture Reflex order by discern. Performed By: #### 1 9856395 #### [facility] [address] [place] [address] Type of Urine collection method Daniel Normal [facility] Comment on above: Order Comment: Urina ry Catheter Insertion triggered Urinalysis With Culture Reflex order by discern. Performed By: #### 1 1891175 #### [facility] [address] [place] [address] Urobilinogen Qn (U) 0.2 {Gerber'U}/dL Normal 0.0-1.0 [facility] Comment on above: Order Comment: Urina ry Catheter Insertion triggered Urinalysis With Culture Reflex order by discern. Performed By: #### 1 6839605 #### [facility] [address] WBC Auto Ql (U) Negative Normal Negative [facility] Comment on above: Order Comment: Urina ry Catheter Insertion triggered Urinalysis With Culture Reflex order by discern. Performed By: #### 1 8972861 #### [facility] [address] [place] [address] WBC LM.HPF (Urine sed) [#/Area] 0-5 Normal 0-5 [facility] Comment on above: Order Comment: Urina ry Catheter Insertion triggered Urinalysis With Culture Reflex order by discern. Performed By: #### 1 8502086 #### [facility] [address] [place] [address] Urology Office/Clinic Noteon 06-28-2021 Urology Office/Clinic Note [...] UVJ stone with hydro on CT yesterday [facility] ER. pt continues to have severe pain despite toradol and percocet. pt's last po intake was a cracker at 5 am and a few sips of water around 8 am. no fever today. UA in clinic shows blood only. case discussed with Dr Pierre (home service demonstrator MD). Will schedule cysto with possible stent [...] General anesthesia. pt to proceed directly to [facility] for surgery. Ordered: Office Visit Level 5 Est 40642 Urnls Dip Stick Auto w/o Microscopy POC 87695 Follow-up With When Contact Information EFREN AMANDA MD [address] [place] [address]- Additional Instructions: Patient Education Hydronephrosis Problem List/Past [...] Minerals Nexium 20 mg Cap-DR, Oral, Daily [place] 325 mg-5 mg oral tablet, 1 tab(s), [...] Protein Urine Dipstick: Trace (06/28/21 11:25:00) Specific Keller Urine Dipstick: >=1.030 (06/28/21 11:25:00) Urine Appearance Urine Dipstick: Clear (06/28/21 11:25:00) Urine Color Urine Dipstick: Yellow (06/28/21 11:25:00) Urobilinogen Urine Dipstick: Normal 0.2-1 EU/dl (06/28/21 11:25:00) pH Urine Dipstick: 5.5 (06/28/21 11:25:00) Normal [facility] Comment on above: Result Comment: Elec tronically [...] FINAL REPORT Dictated: 06/28/2021 2:42 pm Farooq Medniola MD. Signed (Electronic Signature): 06/28/2021 2:42 pm Signed by: Farooq Mendiola MD Transcribed by: BOOGIE Technologist: SHANI Normal [facility] XR Chest 2 Viewson XR Chest 2 [...] M.D. Transcribed by: BOOGIE Technologist: SHANI Normal [facility] eGFRon 06-28-2021 GFR/1.73 sq M.predicted among blacks MDRD (S/P/Bld) [Vol rate/Area] 42 mL/min/1.73 m2 Low >=59 [facility] Comment on above: Order Comment: Order added by Discern Expert. Result Comment: eGFR is race adjusted. AA=. Performed By: #### 2 768773, 5390445, 6075266, 62204478, 95303601, 6695926 ####[facility] [address] [place] [address] GFR/1.73 sq M.predicted among non-blacks MDRD (S/P/Bld) [Vol rate/Area] 35 mL/min/1.73 m2 Low >=59 [facility] Comment on above: Order Comment: Order added by Discern Expert. Result Comment: Yard Assistant renetta kidney disease could be indicated at eGFR's of less than 60 mL/min/1.73m2. Kidney failure is indicated at less than 15 mL/min/1.73m2. Performed By: #### 2 852235, 0787316, 3198469, 60278079, 78401808, 1751197 ####[facility] [address] [place] [address] GFR/1.73 sq M.predicted among blacks MDRD (S/P/Bld) [Vol rate/Area] 42 mL/min/1.73 m2 Low >=59 [facility] Comment on above: Order Comment: Order added by Discern Expert. Result Comment: eGFR is race adjusted. AA=. Performed By: #### 2 194387, 8353421, 1288176, 36496432, 9037997, 2802017 ####[facility] [address] [place] [address] GFR/1.73 sq M.predicted among non-blacks MDRD (S/P/Bld) [Vol rate/Area] 35 mL/min/1.73 m2 Low >=59 [facility] Comment on above: Order Comment: Order added by Discern Expert. Result Comment: Yard Assistant renetta kidney disease could be indicated at eGFR's of less than 60 mL/min/1.73m2. Kidney failure is indicated at less than 15 mL/min/1.73m2. Performed By: #### 2 929100, 4467059, 3585057, 54817545, 3865996, 0887119 ####[facility] [address] [place] [address] XR KNEE 3V AP/LAT/MERCHANT L Ton 10-02-2018 [...] IMPRESSION: 1. Postsurgical change. No complication identified.. Grass Farm Laborer: BEA Transcribe Date/Time: Oct 02 2018 10:08A Dictated by : JEANA HAWKINS MD This examination was interpreted and the report reviewed and electronically signed by: JEANA HAWKINS MD on Oct 02 2018 10:09AM EST [id number] [facility] XR KNEE 3V AP/LAT/MERCHANT R Ton [...] IMPRESSION: 1. Postsurgical change. No complication identified.. 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 Small right-sided joint effusion suspected. Grass Farm Laborer: PSCAlem Transcribe Date/Time: May 19 2018 12:19P Dictated by : MAYITO MCDONALD MD This examination was interpreted and the report reviewed and electronically signed by: MAYITO MCDONALD MD on May 19 2018 12:26PM EST [id number] [facility] XR KNEE 3V AP/LAT/MERCHANT R Ton [...] interval complication. Small right-sided joint effusion suspected. Grass Farm Laborer: [facility] Transcribe Date/Time: May 19 2018 12:19P Dictated by : MAYITO MCDONALD MD This examination was interpreted and the report reviewed and electronically signed by: MAYITO MCDONALD MD on May 19 2018 12:26PM EST [id number] [facility] CASE MANAGEMon 04-03-2018 CASE MANAGEM HNO ID: [id number] Author: Tracie (Rn) MALORIE Hancock Service: Care Management Author Type: Registered Nurse Type: Care Mgt Progress Note Filed: 04/03/2018 12:18 PM Note Text: CARE MANAGEMENT DISCHARGE NOTE SERVICE DATE: 04/03/2018 SERVICE TIME: 04-03-18 LOS: 1 day Admission Date: 03/31/2018 DISCHARGE ARRANGEMENT (list agency and phone number) alf facility: Was an expedited discharge program used? No Provider: [facility] CAREGIVER ASSESSMENT: Caregiver is ready, willing and able to meet the patient's needs as recommended by the inter-professional team? Yes Patient's transition needs and plan for meeting these needs: going to SNF Does the patient have an acute stroke diagnosis, or has the patient had a stroke during this admission? No HANDOFF COMMUNICATION: Dr. Moffett via [employer] faxed DC instructions TRANSPORTATION ARRANGEMENTS: Mode of Transportation: [employer] and Phone #: Javier Durant [phone] . Date of Trip: 04-03-18 Type of Service: BLS Non-emergency Is Patient Medicaid Pending: No Discussion of financial coverage occurred with Patient - she paid $402.00 up front via [employer] Card to Javier Durant . Computer Systems Technology Instructor Location: [facility] Financial Care Management Responsibility: None Estimated Charge: N/A Approving Steam And Power Superintendent: N/A ADDITIONAL CONTACT RESOURCES: Discharge Information Row Name Patient Update from 02/24/2018 in Orthopaedics Admission (Current) from 03/31/2018 in [facility] 5D Medical Follow-Up Appointment Specialty ? Christianity Ortho Provider Name ? Poornima Mcknight RN Address ? [address] [place] [address], [address], [facility] ? [place] [address] Phone Number ? [phone] Appointment Date ? 04/21/18 Appointment Time ? 2:00PM Additonal Instructions ? Patient should bring the following to appointment: Picture ID, Insurance Card, Copay (if applicable), Medications/Med List. Please provide a minimum of 24 hours' notice for cancelations/rescheduling. Needs Prior to Discharge: Ready for Discharge SIGNATURE: Tracie Hancock RN PATIENT NAME: Minal Caputo DATE: April 03, 2018 TIME: 12:13 PM PAGER/CONTACT #: [phone] [facility] CONSULT PROGon 04-03-2018 Protein mass conc HNO ID: [id number] Author: Jose Velasco (Pa) Service: Pain Management Author Type: Physician Mortgage Or Loan Underwriter Type: Consult Progress Note Filed: 04/03/2018 10:49 [...] - , CLASSIC, IN-HOSP CARE 1980 - [facility] AFTER DELIVERY - PAST SURGICAL HISTORY [...] DATE: April 03, 2018 TIME: 10:46 AM [facility] NURSING PROGon 04-03-2018 Protein mass conc HNO ID: [id number] Author: Radha (Rn) MALORIE Hough Service: Nursing Author Type: Registered Nurse Type: Nursing Progress Note Filed: 04/03/2018 3:07 PM Note Text: Nursing Progress Note Patient Name: Minal Caputo Patient Location: [id number] Daily Note:Report called to LENIN Duncan at [phone] This note was completed by: Radha Hough RN [facility] PROGRESSon 04-03-2018 Protein mass conc HNO ID: [id number] Author: Elaine Weathers) Fredrick Service: Orthopaedic Surgery [...] today. Elaine Alcala MD Resident, Orthopaedic Surgery [id number] April 03, 2018 [facility] THERAPY NTon 04-03-2018 THERAPY NT HNO ID: [id number] Author: Elsa (Pt) Bradford Service: Physical Therapy Author Type: Physical Therapist Type: Therapy (PT/OT/Speech/Resp) Filed: 04/03/2018 2:28 PM Note Text: Physical Therapy Treatment SERVICE DATE: 04/03/2018 SERVICE TIME: 1134 to 1205 ROOM: [place] [address] Recommended Discharge Disposition: Subacute/SNF Justification For Post [...] Diagnosis: Reduced mobility-other Interventions Provided: Therapeutic Exercise (71428);Gait Training (45417) Therapeutic Exercise (36244) Treatment Minutes: 21 1 unit Skilled Intervention(s): Instruction in therapeutic exercise anti-embolitics and TKR exercises. Verbal and tactile cuing provided . Education in TKR precautions, HEP, POC, nonpharm pain management, and importance of repositioning/activity. Performed anti-embolitics and TKR exercises bilaterally ([id number]). Gait Training (92038) Treatment Minutes: 10 1 unit Skilled Intervention(s): [...] scoliosis s/p valadez rods 1986 Patient Report: I'm leaving here at 3, [...] DATE: April 03, 2018 TIME: 2:28 PM [facility] Basic Metabolic Panlon 04-02 Anion gap molar conc 11 mmol/L Normal 9-18 [facility] Comment on above: Performed By: #### [address] #### [place] [address] Calcium mass conc 8.2 mg/dL Low 8.5-10.2 [facility] Comment on above: Performed By: #### T [address] #### [place] [address] Chloride molar conc 100 mmol/L Normal 97-105 [facility] Comment on above: Performed By: #### T [address] #### [place] [address] CO2 molar conc 25 mmol/L Normal 22-30 [facility] Comment on above: Performed By: #### [address] #### [place] [address] Creatinine mass conc 0.83 mg/dL Normal 0.58-0.96 [facility] Comment on above: Performed By: #### [address] #### [place] [address] eGFR- Amer. >60 Normal >60 [facility] Comment on above: Performed By: #### T [address] #### [place] [address] GFR/1.73 sq M predicted among non-blacks MDRD vol rate/area (S/P/Bld) mL/min/{1.73_m2} Normal >60 [facility] Comment on above: Performed By: #### [address] #### [place] [address] Glucose mass conc 129 mg/dL High 74-99 [facility] Comment on above: Performed By: #### T [address] #### [place] [address] Potassium molar conc 4.1 mmol/L Normal 3.7-5.1 [facility] Comment on above: Performed By: #### T [address] #### [place] [address] Sodium molar conc 136 mmol/L Normal 136-144 [facility] Comment on above: Performed By: #### T SCR30 #### [place] [address] Urea nitrogen mass conc 16 mg/dL Normal 7-21 [facility] Comment on above: Performed By: #### T SCR30 #### [place] [address] CASE MANAGEMon 04-02-2018 CASE MANAGEM HNO ID: [id number] Author: Tracie (Rn) MALORIE Hancock Service: Care Management Author Type: Registered Nurse Type: Care Mgt Progress Note Filed: 04/02/2018 9:17 AM Note Text: CARE MANAGEMENT PROGRESS NOTE SERVICE DATE: 04/02/2018 SERVICE TIME: 9:16 am LOS: 1 day Observation letter given to Minal Caputo on 04-01-18 SIGNATURE: Tracie Hancock RN PATIENT NAME: Minal Caputo DATE: April 02, 2018 TIME: 9:16 AM PAGER/CONTACT #: [phone] [facility] CBC and Differentialon 04-02 Abs Baso <0.03 Normal <0.11 [facility] Comment on above: Performed By: #### T SCR30 #### [place] [address] Abs [place] 1.54 k/uL High <0.87 [facility] Comment on above: Performed By: #### T SCR30 #### [place] [address] Abs Neut 7.77 k/uL High 1.45-7.50 [facility] Comment on above: Performed By: #### T SCR30 #### [place] [address] Basophils/100 WBC (Bld) 0.2 % [facility] Comment on above: Performed By: #### T SCR30 #### [place] [address] Eosinophils #/vol (Bld) 0.07 10*3/uL Normal <0.46 [facility] Comment on above: Performed By: #### T SCR30 #### [place] [address] Eosinophils/100 WBC (Bld) 0.6 % Normal [facility] Comment on above: Performed By: #### T SCR30 #### [place] [address] Erythrocyte distribution width Ratio (RBC) 13.9 % Normal 11.5-15.0 [facility] Comment on above: Performed By: #### T SCR30 #### [place] [address] Hematocrit Volume Fraction (Bld) 31.7 % Low 36.0-46.0 [facility] Comment on above: Performed By: #### T SCR30 #### [place] [address] Hemoglobin mass conc (Bld) 10.2 g/dL Low 11.5-15.5 [facility] Comment on above: Performed By: #### T SCR30 #### [place] [address] Lymphocytes #/vol (Bld) 2.68 10*3/uL Normal 1.00-4.00 [facility] Comment on above: Performed By: #### T SCR30 #### [place] [address] Lymphocytes/100 WBC (Bld) 22.2 % Normal [facility] Comment on above: Performed By: #### T SCR30 #### [place] [address] MCH Entitic mass (RBC) 30.3 pG Normal 26.0-34.0 [facility] Comment on above: Performed By: #### T SCR30 #### [place] [address] MCHC mass conc (RBC) 32.2 g/dL Normal 30.5-36.0 [facility] Comment on above: Performed By: #### T SCR30 #### [place] [address] MCV Entitic volume (RBC) 94.1 fL Normal 80.0-100.0 [facility] Comment on above: Performed By: #### T SCR30 #### [place] [address] Monocytes/100 WBC (Bld) 12.7 % Normal [facility] Comment on above: Performed By: #### T SCR30 #### [place] [address] Neutrophils/100 WBC (Bld) 64.3 % Normal [facility] Comment on above: Performed By: #### T SCR30 #### [place] [address] NRBCs 0.0 /100 WBC Normal 0 [facility] Comment on above: Performed By: #### T SCR30 #### [place] [address] Platelet mean volume Entitic volume (Bld) 10.9 fL Normal 9.0-12.7 [facility] Comment on above: Performed By: #### T SCR30 #### [place] [address] Platelets #/vol (Bld) 263 10*3/uL Normal 150-400 [facility] Comment on above: Performed By: #### T SCR30 #### [place] [address] RBC #/vol (Bld) 3.37 10*6/uL Low 3.90-5.20 [facility] Comment on above: Performed By: #### T SCR30 #### [place] [address] WBC #/vol (Bld) 12.08 10*3/uL High 3.70-11.00 [facility] Comment on above: Performed By: #### T SCR30 #### [facility] [address] [address] CONSULTon 04-02-2018 CONSULT HNO ID: [id number] Author: Jose Velasco (Pa) Service: Pain Management Author Type: Physician Mortgage Or Loan Underwriter Type: Consults Filed: 04/02/2018 3:15 PM Note [...] - , CLASSIC, IN-HOSP CARE 1980 - [facility] AFTER DELIVERY - PAST SURGICAL HISTORY [...] bid Discuss with Dr. Walker SIGNATURE: Jose Velasco PA-C DATE: April 02, 2018 TIME: 3:08 PM [facility] PROGRESSon 04-02-2018 Protein mass conc HNO ID: [id number] Author: Jennifer Calvo ([facility]-) David Service: Hospital Medicine Author Type: Nurse [...] with more than 50% of the total rysd-ve-rrnh time of the visit in counseling / coordination of care. [facility] Protein mass conc HNO ID: [id number] Author: Ady Aragon Service: General Internal Medicine [...] ) 81 mg ORAL 2 TIMES DAILY 03/31/184 -- 03/31/18 0000 aspirin, enteric coated (ECOTRIN LOW STRENGTH) 81 mg EC tablet 81 mg ORAL 2 TIMES DAILY 03/31/18 1139 04/28/18 2359 03/31/182029 pneumatic compression stockings (wy,az) 03/31/18 2030 activity - mobilize patient (wy,az) 03/31/18 1030 graduated compression stockings ([place] VTE Prophylaxis: VTE prophylaxis appropriate SIGNATURE: Ady Aragon MD PATIENT NAME: Minal Caputo DATE: April 02, 2018 TIME: 3:40 PM PAGER: [phone] [facility] Protein mass conc HNO ID: [id number] Author: Elaine Alcala Service: Orthopaedic Surgery Author [...] today. Elaine Alcala MD Resident, Orthopaedic Surgery [id number] April 02, 2018 10:37 AM [facility] THERAPY NTon 04-02-2018 THERAPY NT HNO ID: [id number] Author: Elsa (Pt) Bradford Service: Physical Therapy Author Type: Physical Therapist Type: Therapy (PT/OT/Speech/Resp) Filed: 04/02/2018 4:54 PM Note Text: Physical Therapy Treatment SERVICE DATE: 04/02/2018 SERVICE TIME: 1536 to 1610 ROOM: [place] [address] Recommended Discharge Disposition: Subacute/SNF Justification For Post [...] Diagnosis: Reduced mobility-other Interventions Provided: Therapeutic Exercise (24560);Therapeutic Activity (66041) Therapeutic Exercise (31452) Treatment Minutes: 14 1 unit Skilled Intervention(s): Instruction in therapeutic exercise seated TKR exercises. Verbal and tactile cuing provided . Education in HEP, POC, nonpharm pain management and importance of repositioning/activity. Performed seated TKR exercises ([id number]). Therapeutic Activity (04563) Treatment Minutes: 20 1 unit Skilled Intervention(s): [...] Felder PT DATE: April 02, 2018 TIME: 4:53 PM [facility] THERAPY NT HNO ID: [id number] Author: Elsa Felder Service: Physical Therapy Author Type: Physical Therapist Type: Therapy (PT/OT/Speech/Resp) Filed: 04/02/2018 2:03 PM Note Text: Physical Therapy Treatment SERVICE DATE: 04/02/2018 SERVICE TIME: 1055 to 1118 ROOM: [place] [address] Recommended Discharge Disposition: Subacute/SNF Justification For Post [...] Diagnosis: Reduced mobility-other Interventions Provided: Therapeutic Exercise (26049) Therapeutic Exercise (63707) Treatment Minutes: 23 2 units Skilled Intervention(s): Instruction in therapeutic exercise anti-embolitics and TKR exercises. Verbal and tactile cuing provided . Education in HEP, POC, nonpharm pain management, and importance of repositioning/activity. Performed anti-embolitics and supine TKR exercises ([id number] bilat). Total Timed Code Treatment Minutes: 23 [...] DATE: April 02, 2018 TIME: 2:02 PM [facility] THERAPY NT HNO ID: [id number] Author: Zacarias Reardon (Ot/L) Nasim Service: Occupational Therapy Author Type: Occupational Therapist Type: Therapy (PT/OT/Speech/Resp) Filed: 04/02/2018 9:45 AM Note Text: Occupational Therapy Treatment SERVICE DATE: 04/02/2018 SERVICE TIME: 853 to 921 ROOM: [place] [address] Recommended Discharge Disposition: Subacute/SNF Justification For Post [...] daily living (ADL) Interventions Provided: Therapeutic Activity (03117);Self Assisted Management (58441) Self Assisted Management (92226) Treatment Minutes: 14 1 unit Skilled Intervention(s): [...] details for this therapy evaluation/treatment. SIGNATURE: Teodora Quach/OMAR PATIENT NAME: Minal Caputo DATE: April 02, 2018 TIME: 9:35 AM I reviewed and agree with the documentation corresponding to this therapy visit. SIGNATURE: LAMAR English/Belle DATE: April 02, 2018 TIME: 9:43 AM Normal [facility] Basic Metabolic Panlon 04-01 Anion gap molar conc 12 mmol/L Normal 9-18 [facility] Comment on above: Performed By: #### C GUIDO BMP ####[place] [address] [phone] Calcium mass conc 8.3 mg/dL Low 8.5-10.2 [facility] Comment on above: Performed By: #### C GUIDO BMP ####[place] [address] [phone] Chloride molar conc 102 mmol/L Normal 97-105 [facility] Comment on above: Performed By: #### C GUIDO BMP ####[place] [address] CO2 molar conc 24 mmol/L Normal 22-30 [facility] Comment on above: Performed By: #### C BC, BMP ####[place] [id number] Creatinine mass conc 0.86 mg/dL Normal 0.58-0.96 [facility] Comment on above: Performed By: #### C BC, BMP ####[place] [id number] eGFR- Amer. >60 Normal >60 [facility] Comment on above: Performed By: #### C BC, BMP ####[place] [id number] GFR/1.73 sq M predicted among non-blacks MDRD vol rate/area (S/P/Bld) mL/min/{1.73_m2} Normal >60 [facility] Comment on above: Performed By: #### C BC, BMP ####[place] [id number] Glucose mass conc 152 mg/dL High 74-99 [facility] Comment on above: Performed By: #### C BC, BMP ####[place] [id number] Potassium molar conc 4.0 mmol/L Normal 3.7-5.1 [facility] Comment on above: Performed By: #### C BC, BMP ####[place] [id number] Sodium molar conc 138 mmol/L Normal 136-144 [facility] Comment on above: Performed By: #### C BC, BMP ####[place] [id number] Urea nitrogen mass conc 16 mg/dL Normal 7-21 [facility] Comment on above: Performed By: #### C BC, BMP ####[place] [id number] CASE MANAGEMon 04-01-2018 CASE MANAGEM HNO ID: [id number] Author: Tracie (Rn) MALORIE Hancock Service: Care [...] (Osteoarthritis) of Knee Attendees Present at Rounds: Retirement Consultant: Nurse Steam And Power Superintendent/Mortgage Or Loan Underwriter Nurse Steam And Power Superintendent: Patient: Minal Caputo Pharmacy: Physical Therapy: Provider: [...] April 01, 2018 TIME: 10:02 AM CSN: [id number] [facility] CASE MGT INIT Alison 2017 CASE MGT INIT KAYKAY HNO ID: [id number] Author: Tracie JulianRn) MALORIE Hancock Service: Care Management Author Type: Registered Nurse Type: Care Mgt Initial Assessment Filed: 04/01/2018 10:12 AM Note Text: CARE MANAGEMENT: ASSESSMENT AND DISCHARGE PLAN SERVICE DATE: 04/01/2018 SERVICE TIME: 10:05 am PRIMARY CARE PHYSICIAN: Rita Amanda MD ADMISSION STATUS: Inpatient Needs Prior to Discharge: OT/PT Evaluation;Other: See Comment (home vs rehab TBD) 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 No [...] 0 I feel financially burdened by my [id number] expenses for my prescription medication: Disagree completely [...] Disclosure Provided POTENTIAL TRANSITION PLANS Home Care Group Home Facility/Intermediate Care Facility To Be Determined Care Management Department will continue to follow. SIGNATURE: Tracie Hancock RN PATIENT NAME: Minal Caputo DATE: April 01, 2018 TIME: 10:05 AM PAGER/CONTACT #: [phone] Normal [facility] CBCon 04-01-2018 Erythrocyte distribution width Ratio (RBC) 14.0 % Normal 11.5-15.0 [facility] Comment on above: Performed By: #### C GUIDO, BMP ####[place] [id number] Hematocrit Volume Fraction (Bld) 34.0 % Low 36.0-46.0 [facility] Comment on above: Performed By: #### C BC, BMP ####[place] [id number] Hemoglobin mass conc (Bld) 11.1 g/dL Low 11.5-15.5 [facility] Comment on above: Performed By: #### C BC, BMP ####[place] [id number] MCH Entitic mass (RBC) 30.4 pG Normal 26.0-34.0 [facility] Comment on above: Performed By: #### C BC, BMP ####[place] [id number] MCHC mass conc (RBC) 32.6 g/dL Normal 30.5-36.0 [facility] Comment on above: Performed By: #### C BC, BMP ####[address] MCV Entitic volume (RBC) 93.2 fL Normal 80.0-100.0 [facility] Comment on above: Performed By: #### C BC, BMP ####[place] [id number] Platelet mean volume Entitic volume (Bld) 10.9 fL Normal 9.0-12.7 [facility] Comment on above: Performed By: #### C BC, BMP ####[address] Platelets #/vol (Bld) 290 10*3/uL Normal 150-400 [facility] Comment on above: Performed By: #### C BC, BMP ####[address] RBC #/vol (Bld) 3.65 10*6/uL Low 3.90-5.20 [facility] Comment on above: Performed By: #### C BC, BMP ####[address] WBC #/vol (Bld) 15.94 10*3/uL High 3.70-11.00 [facility] Comment on above: Performed By: #### C BC, BMP ####[address] CONSULTon 04-01-2018 CONSULT HNO ID: [id number] Author: Ady Aragon Service: General Internal Medicine [...] - , CLASSIC, IN-HOSP CARE 1980 - [facility] AFTER DELIVERY - PAST SURGICAL HISTORY [...] 04/01/2018 Neut% 55.6 03/19/2018 Lymph% 31.7 03/19/2018 [place]% 6.4 03/19/2018 Eosin% 5.5 03/19/2018 Baso% 0.8 03/19/2018 Abs Neut (ANC) 4.39 03/19/2018 Abs [place] 0.51 03/19/2018 Abs Eosin 0.44 03/19/2018 Abs [...] April 01, 2018 TIME: 8:53 AM PAGER: [phone] [facility] NURSING PROGon 04-01-2018 Protein mass conc HNO ID: [id number] Author: Pat Newman (Acn) RN Service: (none) Author Type: Advance Clinical Nurse Type: Nursing Progress Note Filed: 04/01/2018 3:43 PM Note Text: Nursing Progress Note Patient Name: Minal Caputo Patient Location: / Daily Note: Reviewed isometric and incentive spirometry [...] care. This note was completed by: Pat Newman, RN [facility] Protein mass conc HNO ID: [id number] Author: Romana Goldman RN Service: (none) Author Type: Registered Nurse Type: Nursing Progress Note Filed: 03/31/2018 10:37 PM Note Text: Nursing Progress Note Patient Name: Minal Caputo Patient Location: / Daily Note:2045 pt drowsy, pt VSS at this time. Pt placed on continuous pulse ox in room, on 3L/O2 at 97% NC. Pt has strong and equal p/p, no N/T, no N/V, with good sensation and pulse. Call light within reach. This note was completed by: Romana Goldman RN [facility] PROGRESSon 04-01-2018 Protein mass conc HNO ID: [id number] Author: Jennifer Calvo ([employer]-) David Service: Hospital Medicine Author Type: Nurse [...] with more than 50% of the total uhel-gm-cydn time of the visit in counseling / coordination of care. [facility] Protein mass conc HNO ID: [id number] Author: Elaine Alcala Service: Orthopaedic Surgery Author [...] tomorrow. Elaine Alcala MD Resident, Orthopaedic Surgery [id number] 04/01/2018 12:21 PM Please page 2BONE ([phone]) from 5p-6a and on weekends for any issues. [facility] THERAPY NTon 04-01-2018 THERAPY NT HNO ID: [id number] Author: Elsa (Pt) Bradford Service: Physical Therapy Author Type: Physical Therapist Type: Therapy (PT/OT/Speech/Resp) Filed: 04/01/2018 4:00 PM Note Text: Physical Therapy Evaluation SERVICE DATE: 04/01/2018 SERVICE TIME: 1358 to 1501 ROOM: [place] [address] Recommended Discharge Disposition: Subacute/SNF Justification For Post [...] Diagnosis: Reduced mobility-other Interventions Provided: Evaluation;Therapeutic Exercise (18206);Therapeutic Activity (05361);Gait Training (51016) $ Evaluation-Low (12338) Billed Units: 1 unit Therapeutic Exercise (18227) Treatment Minutes: 20 1 unit Skilled Intervention(s): Instruction in therapeutic exercise supine TKR exercises Verbal and tactile cuing provided . Education in HEp and TKR booklet Therapeutic Activity (40029) Treatment Minutes: 10 1 unit Skilled Intervention(s): Instructed patient in supine to sit pushing with upper extremities to sit up Instructed patient in sit to supine using safe, effective technique Education with POC, precuations, nonpharm pain control techniques Gait Training (24741) Treatment Minutes: 10 1 unit Skilled Intervention(s): [...] CODE: PT 6 Clicks Score: 12 (04/01/18 1358) $ Mobility: Walking and Moving Around Current [...] for the period of 04/01/2018 through 04/15/2018. [facility] THERAPY NT HNO ID: [id number] Author: Zacarias Reardon (Ot/L) Nasim Service: Occupational Therapy Author Type: Occupational Therapist Type: Therapy (PT/OT/Speech/Resp) Filed: 04/01/2018 1:22 PM Note Text: Occupational Therapy Evaluation SERVICE DATE: 04/01/2018 SERVICE TIME: 1125 to 1202 ROOM: [place] [address] Recommended Discharge Disposition: Subacute/SNF Justification For Post [...] of daily living (ADL) Interventions Provided: Evaluation;Self Assisted Management (20050) $ Evaluation-Low (64218) Billed Units: 1 unit Self Assisted Management (67124) Treatment Minutes: 22 1 unit Skilled Intervention(s): [...] CODE: OT 6 Clicks Score: 17 (04/01/18 112) Self Care Current Status (G8987): CK (04/01/18 112) Self Care Goal Status (G8988): CJ (04/01/18 112) Based on clinical assessment and the score [...] documentation corresponding to this therapy visit. SIGNATURE: LAMAR English/Belle DATE: April 01, 2018 TIME: 1:22 PM [facility] THERAPY NT HNO ID: [id number] Author: Elsa JulianPtStan Felder Service: Physical Therapy Author Type: Physical Therapist Type: Therapy (PT/OT/Speech/Resp) Filed: 04/01/2018 11:59 AM Note Text: PHYSICAL THERAPY MISSED VISIT SERVICE DATE: 04/01/2018 SERVICE TIME: 1145 to 1145 ROOM: [place] [address] Attempted Evaluation. Patient not seen due to Another service at bedside. OT bedside SIGNATURE: Elsa Felder PT PATIENT NAME: Minal Caputo DATE: April 01, 2018 TIME: 11:58 AM [facility] ANES Angel 03-31-2018 ANES POST HNO ID: [id number] Author: Day Walker Service: Anesthesiology Author Type: [...] 31, 2018 TIME: 5:16 PM PAGER/CONTACT #: [facility] ANES PREOPon 03-31-2018 ANES PREOP HNO ID: [id number] Author: Skye An Service: Anesthesiology Author Type: [...] - , CLASSIC, IN-HOSP CARE 1980 - [facility] AFTER DELIVERY - PAST SURGICAL HISTORY OF [...] (XYLOCAINE) 0.1-0.2 mL INTRADERMAL PRN Donte L Onley lactated ringers infusion 5-30 mL/hr INTRAVENOUS CONTINUOUS Donte L Onley Last Rate: 30 mL/hr at 03/31/18 1150 30 mL/hr at 03/31/18 1150 celecoxib 200 mg cap(s) (CeleBREX) 200 mg ORAL Pre-Op Once Donte L Uriel ceFAZolin 3 g in D5W 100 mL (ANCEF) 3 g INTRAVENOUS ONCE Donte L Onley Allergies: ALLERGIES Allergen Reactions - Adhesive Bandages [...] March 31, 2018 TIME: 12:06 PM CSN: [id number] [facility] BRIEF OP NOTon 03-31-2018 BRIEF OP NOT HNO ID: [id number] Author: Donte Moffett Service: Orthopaedic Surgery Author Type: Physician Type: Brief Op Note Filed: 03/31/2018 4:59 PM Note Text: BRIEF OP NOTE LOG ID: [id number] Surgery/Procedure Date: 03/31/2018 Incision/Procedure Start Time: 1:54 PM Incision Close/Procedure End Time: 4:40 PM Surgeon(s)/Proceduralist(s ) and Mortgage Or Loan Underwriter(s): Surgeon(s) and Role: * Donte Moffett - Primary * Elaine Alcala - Resident - Assisting * Froylan Walker - Resident - Assisting Procedure(s): bilateral TKAs Anesthesia: General Findings: DJD Estimated Blood Loss: 100 mls Specimens: None Complications: Fx medial tibial plateau right tibia Pre-Op/Pre-Procedure Diagnosis: As below Post-Op/Post-Procedure Diagnosis: Arthritis of both knees [M17.0] SIGNATURE: Elaine Alcala MD PATIENT NAME: Minal Caputo DATE: March 31, 2018 TIME: 4:50 PM PAGER/CONTACT #: [facility] NURSING PROGon 03-31-2018 Protein mass conc HNO ID: [id number] Author: Amy JulianRn) MALORIE Mcdonnell Service: (none) Author Type: Registered Nurse Type: Nursing Progress Note Filed: 03/31/2018 6:33 PM Note Text: Nursing Progress Note Patient Name: [facility]inal Caputo [facility] [place] Daily Note: Patient with decreased respirations and [...] note was completed by: Amy Mcdonnell RN [facility] Protein mass conc HNO ID: [id number] Author: Rosa JulianRn) MALORIE Zarco Service: Nursing Author Type: Registered Nurse Type: Nursing Progress Note Filed: 03/31/2018 4:54 PM Note Text: Discharge Status: Patient is Awakening, and is extubated. Skin condition was warm. Transported to recovery room via bed with siderails up. Accompanied by bistro attendant and resident. [facility] Protein mass conc HNO ID: [id number] Author: Rosa JulianRn) ZarcoMALORIE rodas Service: Nursing Author Type: Registered Nurse Type: [...] of exposure and providing warm irrigation fluid. [facility] Protein mass conc HNO ID: [id number] Author: Lolis JulianRn) MALORIE Jin Service: (none) Author Type: Registered Nurse Type: Nursing Progress Note Filed: 03/31/2018 11:48 AM Note Text: Nursing Progress Note Patient Name: Minal Caputo [facility] Daily Note: Pt aware of procedure. Alert and oriented x 3. Pt states just discomfort in bilateral knees while lying in the bed. 2+ dp/pt pulses to bilateral feet. Adequate push/pulls to bilateral feet. IV tolerated well. IV fluids running. Safety maintained. This note was completed by: Lolis Jin RN [facility] OPERATIVE NOon 03-31-2018 OPERATIVE NO HNO ID: [id number] Author: Donte Moffett Service: Orthopaedic Surgery Author Type: Physician Type: Operative Report Filed: 03/31/2018 5:40 PM Note Text: OPERATIVE/PROCEDURE REPORT LOG ID: [id number] Surgery/Procedure Date: 03/31/2018 Incision/Procedure Start Time: 1:54 PM Incision Close/Procedure End Time: 4:40 PM Surgeon(s)/Proceduralist(s ) and Mortgage Or Loan Underwriter(s): Surgeon(s) and Role: * Donte Moffett - [...] Implant Name Type Inv. Item Serial No. Envelope Press Operator Lot No. LRB Model Num No. Used CEMENT SIMPLEX P BONE RADIOPAQUE FULL DOSE - [id number] Cement / Putty CEMENT SIMPLEX P BONE RADIOPAQUE FULL DOSE ANTONI [id number] Right [id number] CEMENT SIMPLEX P BONE RADIOPAQUE FULL DOSE - [id number] Cement / Putty CEMENT SIMPLEX P BONE RADIOPAQUE FULL DOSE ANTONI [id number] Left [id number] BASEPLATE TRIATHLON 4 UNIVERSAL COCR TIBIAL TOTAL STABILIZE CEMENTED KNEE - [id number] Plate BASEPLATE TRIATHLON 4 UNIVERSAL COCR TIBIAL TOTAL STABILIZE CEMENTED KNEE STRY/[employer] [id number] Left [id number] COMPONENT TRIATHLON 33MM X3 9MM PATELLAR SYMMETRIC KNEE SUPERIOR - [id number] Joint - Knee COMPONENT TRIATHLON 33MM X3 9MM PATELLAR SYMMETRIC KNEE SUPERIOR STRY/[employer] [id number] Left [id number] COMPONENT TRIATHLON 4 FEMORAL CEMENTED POSTERIOR STABILIZE KNEE LEFT - [id number] Joint COMPONENT TRIATHLON 4 FEMORAL CEMENTED POSTERIOR STABILIZE KNEE LEFT STRY/[employer] [id number] Left [id number] INSERT TRIATHLON 4 X3 11MM TIBIAL BEARING POSTERIOR STABILIZE KNEE - [id number] Joint - Knee INSERT TRIATHLON 4 X3 11MM TIBIAL BEARING POSTERIOR STABILIZE KNEE STRY/[facility] [id number] Left [id number] 1 CEMENT SIMPLEX P BONE RADIOPAQUE FULL DOSE - [id number] Cement / Putty CEMENT SIMPLEX P BONE RADIOPAQUE FULL DOSE ANTONI [id number] Right [id number] COMPONENT TRIATHLON 33MM X3 9MM PATELLAR SYMMETRIC KNEE SUPERIOR - [id number] Joint - Knee COMPONENT TRIATHLON 33MM X3 9MM PATELLAR SYMMETRIC KNEE SUPERIOR STRY/[facility] [id number] Right [id number] BASEPLATE TRIATHLON 4 UNIVERSAL COCR TIBIAL TOTAL STABILIZE CEMENTED KNEE - [id number] Plate BASEPLATE TRIATHLON 4 UNIVERSAL COCR TIBIAL TOTAL STABILIZE CEMENTED KNEE [facility] [id number] Right [id number] 1 COMPONENT TRIATHLON 4 FEMORAL CEMENTED POSTERIOR STABILIZE KNEE RIGHT - [id number] Joint - Knee COMPONENT TRIATHLON 4 FEMORAL CEMENTED POSTERIOR STABILIZE KNEE RIGHT [facility] [id number] Right [id number] 1 STEM TRIATHLON 12MM COCR 50MM FEMORAL CEMENTED TOTAL STABILIZED KNEE - [id number] Joint - Knee STEM TRIATHLON 12MM COCR 50MM FEMORAL CEMENTED TOTAL STABILIZED KNEE [facility] [id number] Right [id number] 1 SCREW LCP 6.5MM 8MM PARTIAL THREAD STAINLESS STEEL 45MM 32MM BONE LARGE - [id number] Screw SCREW LCP 6.5MM 8MM PARTIAL THREAD STAINLESS STEEL 45MM 32MM BONE LARGE [employer] Right 217.045 1 WASHER LCP 13MM 6.6MM ST[employer] 4.5-7.3MM SCREW NONSTERILE - [id number] Screw WASHER LCP 13MM 6.6MM ST[employer] 4.5-7.3MM SCREW NONSTERILE [employer] Right 219.99 2 SCREW LCP 6.5MM 8MM FULL THREAD STAINLESS STEEL 35MM BONE LARGE HEXAGONAL - [id number] Screw SCREW LCP 6.5MM 8MM FULL THREAD STAINLESS STEEL 35MM BONE LARGE HEXAGONAL [employer] Right 218.035 1 INSERT TRIATHLON 4 X3 9MM TIBIAL POSTERIOR STABILIZE KNEE - [id number] Joint - Knee INSERT TRIATHLON 4 X3 9MM TIBIAL POSTERIOR STABILIZE KNEE [facility] [id number] Right [id number] 1 PROBLEM LIST: ACTIVE PROBLEM LIST Spinal [...] cuts were made for the femoral component. rubber cutter and shape carver was used to remove notch bone.Attention was [...] 31, 2018 TIME: 5:01 PM PAGER/CONTACT #: [facility] PT EDon 03-31-2018 PT ED HNO ID: [id number] Author: Karly (Rn) MALORIE Mendoza Service: Nursing Author Type: Registered Nurse Type: Patient Education Filed: 03/31/2018 10:33 AM Note Text: PATIENT EDUCATION TOPIC: PROCEDURE / SURGERY: Pre-op Teaching: Logistics PATIENT NAME: Minal Caputo PATIENT LOCATION: [facility] RO[facility] POOL/L* READINESS TO LEARN COGNITIVE ABILITY: Alert and [...] None Electronically Signed By: Karly Mendoza RN [facility] XR KNEE 2V AP/LAT RTon 03-31 [...] recent surgery. IMPRESSION: Satisfactory postoperative right knee. Grass Farm Laborer: PSCAlem Transcribe Date/Time: Mar 31 2018 6:26P Dictated by : GARRETT REYES MD This examination was interpreted and the report reviewed and electronically signed by: GARRETT REYES MD on Mar 31 2018 6:27PM EST [id number] [facility] NURSING PROGon 03-26-2018 Protein mass conc HNO ID: [id number] Author: Poornima (Rn) MALORIE Vance Service: (none) [...] 12 Months: Yes: Date: 03/19/18, Comment: in [facility] Last Menstrual Period: LMP Date: N/A Postmenopausal >1yr: Yes, S/P Hysterectomy: N/A BMI Percentile (PEDS): 46 Risk Assessment: N/A Anesthesia Review: N/A Narrative: Awaiting allergy consult for pcn. appt. 03/27/18 730am Pre-op Considerations: N/A Chart Check: IN PROGRESS Jennifer Pack RN March 26, 2018 12:34 PM See epic encounters (03/27/18) for office visit with Dr. Roldan, note in [facility] includes the followin. Patient was informed of the skin testing result. Since she also has (-) oral challenge, she has no penicillin allergy Chart check complete. MGreiciusRN [facility] Type and SCR (30D)on 018 ABO/RH(D) Positive [facility] Comment on above: Performed By: #### T SCR30 #### [facility] [address] [id number] HOSPon 02-24-2018 HOSP Patient:Minal Caputo MRN: Height:5' [...] % 03/19/2018 46.0 36.0 Progress Notes ([facility] SHERRI): Wilfredo Roldan MD 03/27/2018 1:26 PM Signed PATIENT NAME: Minal Caputo CCF: # [id number] DATE: 1955 AGE: [age] year old SEX: [...] history of reaction to sulfa that she pediatric cns out in hives. She is referred here [...] - , CLASSIC, IN-HOSP CARE 1980 - DANDC AFTER DELIVERY - PAST SURGICAL HISTORY OF [...] Wilfredo Roldan MD Forwarded to: JAZZY Hernandez ROD MILL OPERATOR 03/27/2018 10:47 AM Signed Penicillin G Sodium Lot #[id number] Exp. 03/27/18 [facility] NDC: 3694-6117-61 Prepen Lot #[id number] Exp. 06/13 [employer] NDC: 58978-599-15 0.9% Sodium chloride Inj Lot# [id number] Exp. 07/26/2019 [facility] NDC:3828-7191-71 Skin testing at 15 minute intervals. Prick [...] ?0/0 ORAL Antibiotic?Challenge ? Amoxicillin 250mg/5ml Lot: [id number] Exp: 04/03/2018 ? Given at 0830 Dose:?250 mg/5ml Observed for 60 minutes. Patient denies any symptoms of adverse reaction (rash/hives/itching/swelli ng/breathing difficulties). ? Patient was evaluated by physician and discharged from clinic at 0930. [facility] XR KNEE 4V AP/PA BOTH+LAT/ME R [...] Degenerative changes with no acute process seen. Grass Farm Laborer: PSCB Transcribe Date/Time: Feb 24 2018 11:07A Dictated by : MAYITO MCDONALD MD This examination was interpreted and the report reviewed and electronically signed by: MAYITO MCDONALD MD on Feb 24 2018 12:22PM EST [id number] [facility] XR KNEE 4V AP/PA BOTH+LAT/ME R [...] Degenerative changes with no acute process seen. Grass Farm Laborer: BEA Transcribe Date/Time: Feb 24 2018 11:07A Dictated by : MAYITO MCDONALD MD This examination was interpreted and the report reviewed and electronically signed by: MAYITO MCDONALD MD on Feb 24 2018 12:22PM EST [id number] [facility] No Panel Information Vital Signs Date Time Vital Sign Value Performing Clinician Facility 11-05-2023 10:44-0400 SaO2% (BldA) [Mass fraction] 90 % Brianna Renner APRN.NEY Work Phone: 11-05-2023 10:42-0400 Diastolic blood pressure 77 mm[Hg] [facility] Work Phone: 11-05-2023 10:42-0400 Systolic blood pressure 143 mm[Hg] [facility] Work Phone: 11-05-2023 09:44-0400 Body height 153.8 cm Brianna Renner APRN.CNP Work Phone: 11-05-2023 09:44-0400 Body temperature 97.3 [degF] Brianna Renner APRN.CNP Work Phone: 11-05-2023 09:44-0400 Body weight 123.8 kg Brianna Renner BACK TENDER PAPER MACHINE.DIETARY SERVICES DIRECTOR Work Phone: 11-05-2023 09:44-0400 Diastolic blood pressure 78 mm[Hg] Brianna Renner BACK TENDER PAPER MACHINE.DIETARY SERVICES DIRECTOR Work Phone: 11-05-2023 09:44-0400 Heart rate 84 /min Brianna Renner BACK TENDER PAPER MACHINE.DIETARY SERVICES DIRECTOR Work Phone: 11-05-2023 09:44-0400 Respiratory rate 24 /min Brianna Renner BACK TENDER PAPER MACHINE.DIETARY SERVICES DIRECTOR Work Phone: 11-05-2023 09:44-0400 Systolic blood pressure 168 mm[Hg] Brianna Renner BACK TENDER PAPER MACHINE.DIETARY SERVICES DIRECTOR Work Phone: 10-23-2023 13:38-0500 Body temperature 97.9 [degF] [facility] [place] Work Phone: 10-23-2023 13:38-0500 Diastolic blood pressure 84 mm[Hg] [facility] [place] Work Phone: 10-23-2023 13:38-0500 Heart rate 71 /min [facility] [place] Work Phone: 10-23-2023 13:38-0500 Respiratory rate 18 /min [facility] [place] Work Phone: 10-23-2023 13:38-0500 SaO2% (BldA) [Mass fraction] 95 % [facility] [place] Work Phone: 10-23-2023 13:38-0500 Systolic blood pressure 211 mm[Hg] [facility] Work Phone: 10-22-2023 09:09-0500 Body height 153.8 cm Mitch Garcia MD Work Phone: 10-22-2023 09:09-0500 Body temperature 97.9 [degF] Mitch Garcia MD Work Phone: 10-22-2023 09:09-0500 Body weight 121.7 kg Mitch Garcia MD Work Phone: 10-22-2023 09:09-0500 Diastolic blood pressure 66 mm[Hg] Mitch Garcia MD Work Phone: 10-22-2023 09:09-0500 Heart rate 72 /min Mitch Garcia MD Work Phone: 10-22-2023 09:09-0500 Respiratory rate 16 /min Mitch Garcia MD Work Phone: 10-22-2023 09:09-0500 SaO2% (BldA) [Mass fraction] 95 % Mitch Garcia MD Work Phone: 10-22-2023 09:09-0500 Systolic blood pressure 185 mm[Hg] Mitch Garcia MD Work Phone: 10-09-2023 10:28-0500 Body height 157.5 cm Leo Gerard APRN-DIETARY SERVICES DIRECTOR Work Phone: [facility] 10-09-2023 10:28-0500 Body mass index (BMI) [Ratio] 51.03 kg/m2 Leo Gerard APRN-DIETARY SERVICES DIRECTOR Work Phone: [facility] 10-09-2023 10:28-0500 Body temperature 98.4 [degF] Leo Gerard APRN-DIETARY SERVICES DIRECTOR Work Phone: [facility] 10-09-2023 10:28-0500 Body weight 126.55 kg Leo Gerard APRN-DIETARY SERVICES DIRECTOR Work Phone: [facility] 10-09-2023 10:28-0500 Diastolic blood pressure 78 mm[Hg] Leo Gerard APRN-DIETARY SERVICES DIRECTOR Work Phone: [facility] 10-09-2023 10:28-0500 Heart rate 83 /min Leo Gerard BACK TENDER PAPER MACHINE-DIETARY SERVICES DIRECTOR Work Phone: [facility] 10-09-2023 10:28-0500 SaO2% (BldA) [Mass fraction] 98 % Leo Gerard BACK TENDER PAPER MACHINE-DIETARY SERVICES DIRECTOR Work Phone: [facility] 10-09-2023 10:28-0500 Systolic blood pressure 158 mm[Hg] Leo Gerard BACK TENDER PAPER MACHINE-DIETARY SERVICES DIRECTOR Work Phone: [facility] 09-26-2023 08:04-0500 Body height 157.5 cm Pacc 1 Work Phone: 09-26-2023 08:04-0500 Body temperature 98.4 [degF] Pacc 1 Work Phone: 09-26-2023 08:04-0500 Body weight 124.5 kg Pacc 1 Work Phone: 09-26-2023 08:04-0500 Diastolic blood pressure 56 mm[Hg] Pacc 1 Work Phone: 09-26-2023 08:04-0500 Heart rate 74 /min P[facility] 1 Work Phone: 09-26-2023 08:04-0500 Respiratory rate 20 /min P[facility] 1 Work Phone: 09-26-2023 08:04-0500 SaO2% (BldA) [Mass fraction] 94 % [facility] 1 Work Phone: 09-26-2023 08:04-0500 Systolic blood pressure 152 mm[Hg] Pacc 1 Work Phone: 08-06-2023 08:35-0500 Body temperature 96.8 [degF] Mendoza Yang MD Work Phone: 08-06-2023 08:35-0500 Body weight 123.78 kg Mendoza Yang MD Work Phone: 08-06-2023 08:35-0500 Diastolic blood pressure 63 mm[Hg] Mendoza Yang MD Work Phone: 08-06-2023 08:35-0500 Heart rate 65 /min Mendoza Yang MD Work Phone: 08-06-2023 08:35-0500 Respiratory rate 20 /min Mendoza Yang MD Work Phone: 08-06-2023 08:35-0500 SaO2% (BldA) [Mass fraction] 96 % Mendoza Yang MD Work Phone: 08-06-2023 08:35-0500 Systolic blood pressure 169 mm[Hg] Mendoza Yang MD Work Phone: 07-26-2023 11:55-0500 Body height 160 cm Pacc 4 Work Phone: 07-26-2023 11:55-0500 Body temperature 97.81 [degF] Pacc 4 Work Phone: 07-26-2023 11:55-0500 Body weight 126.8 kg Pacc 4 Work Phone: 07-26-2023 11:55-0500 Diastolic blood pressure 74 mm[Hg] Pacc 4 Work Phone: 07-26-2023 11:55-0500 Heart rate 69 /min Pacc 4 Work Phone: 07-26-2023 11:55-0500 Respiratory rate 17 /min Pacc 4 Work Phone: 07-26-2023 11:55-0500 SaO2% (BldA) [Mass fraction] 95 % Pacc 4 Work Phone: 07-26-2023 11:55-0500 Systolic blood pressure 174 mm[Hg] Pacc 4 Work Phone: 02-28-2023 12:30-0400 Diastolic blood pressure 80 mm[Hg] DO Janet Gilma Work Phone: [facility] 02-28-2023 12:30-0400 Heart rate 62 /min DO Janet Gilma Work Phone: [facility] 02-28-2023 12:30-0400 Respiratory rate 16 /min DO Janet Gilma Work Phone: [facility] 02-28-2023 12:30-0400 SaO2% (BldA) [Mass fraction] 100 % DO Janet Gilma Work Phone: [facility] 02-28-2023 12:30-0400 Systolic blood pressure 184 mm[Hg] DO Janet Gilma Work Phone: [facility] 02-28-2023 09:53-0400 Body height 157.48 cm DO Janet Gilma Work Phone: [facility] 02-28-2023 09:53-0400 Body weight 127 kg DO Janet Gilma Work Phone: [facility] 12-07-2022 17:10-0400 Body height 154.94 cm Debbie Ramirez Other [employer] Other 12-07-2022 17:10-0400 Body mass index (BMI) [Ratio] 52.22 kg/m2 Debbie Ramirez Other [employer] Other 12-07-2022 17:10-0400 Body temperature 100 [degF] Debbie Ramirez Other [employer] Other 12-07-2022 17:10-0400 Body weight 125.38 kg Debbie Ramirez Other [employer] Other 12-07-2022 17:10-0400 Diastolic blood pressure 93 mm[Hg] Debbie Ramirez Other [employer] Other 12-07-2022 17:10-0400 Respiratory rate 20 /min Debbie Ramirez Other [employer] Other 12-07-2022 17:10-0400 SaO2% (BldA) [Mass fraction] 95 % Debbie Ramirez Other [employer] Other 12-07-2022 17:10-0400 Systolic blood pressure 142 mm[Hg] Debbie Ramirez Other [employer] Other 12-03-2022 18:30-0400 Body height 154.94 cm Karen Parrish Other [employer] Other 12-03-2022 18:30-0400 Body mass index (BMI) [Ratio] 52.9 kg/m2 Karen Parrish Other [employer] Other 12-03-2022 18:30-0400 Body temperature 100 [degF] Karen Parrish Other [employer] Other 12-03-2022 18:30-0400 Body weight 127.01 kg Karen Parrish Other [employer] Other 12-03-2022 18:30-0400 Diastolic blood pressure 97 mm[Hg] Karen Parrish Other [employer] Other 12-03-2022 18:30-0400 Respiratory rate 20 /min Karen Parrish Other [employer] Other 12-03-2022 18:30-0400 SaO2% (BldA) [Mass fraction] 93 % Karen Parrish Other [employer] Other 12-03-2022 18:30-0400 Systolic blood pressure 189 mm[Hg] Karen Parrish Other [employer] Other 06-17-2022 10:25-0400 Body height 154.94 cm Dayanna Mikeault Other [employer] Other 06-17-2022 10:25-0400 Body mass index (BMI) [Ratio] 52.9 kg/m2 Dayanna Endy Other [employer] Other 06-17-2022 10:25-0400 Body temperature 98.6 [degF] Dayanna Endy Other [employer] Other 06-17-2022 10:25-0400 Body weight 127.01 kg Dayanna Mikeault Other [employer] Other 06-17-2022 10:25-0400 Diastolic blood pressure 90 mm[Hg] Dayanna Endy Other [employer] Other 06-17-2022 10:25-0400 Respiratory rate 20 /min Dayanna Endy Other [employer] Other 06-17-2022 10:25-0400 SaO2% (BldA) [Mass fraction] 98 % Dayanna Endy Other [employer] Other 06-17-2022 10:25-0400 Systolic blood pressure 190 mm[Hg] Dayanna Endy Other [employer] Other 04-03-2022 13:17-0400 Body height 157.5 cm Shailesh Izquierdo MD Work Phone: 04-03-2022 13:17-0400 Body weight 127.01 kg Shailesh Izquierdo MD Work Phone: 03-19-2022 15:23-0400 Body weight 125.83 kg Alberto Monsalve DO Work Phone: 03-19-2022 15:23-0400 Diastolic blood pressure 81 mm[Hg] Alberto Monsalve DO Work Phone: 03-19-2022 15:23-0400 Heart rate 104 /min Alberto Monsalve DO Work Phone: 03-19-2022 15:23-0400 Systolic blood pressure 174 mm[Hg] Alberto Monsalve DO Work Phone: 12-08-2021 08:25-0400 Body height 157.5 cm John Dc MD Work Phone: 12-08-2021 08:25-0400 Body weight 124.74 kg John Dc MD Work Phone: 12-08-2021 08:25-0400 Diastolic blood pressure 79 mm[Hg] John Dc MD Work Phone: 12-08-2021 08:25-0400 Heart rate 73 /min John Dc MD Work Phone: 12-08-2021 08:25-0400 Systolic blood pressure 128 mm[Hg] John Dc MD Work Phone: Encounters Encounter Date Encounter Type Care Provider Facility Start: 11-14-2023 End: 11-14-2023 ambulatory [facility] Start: 11-11-2023 Telephone encounter Yvonne Baumann RN Work Phone: Hematology/Oncology Comment on above: Care Coordination (H ospital d/c follow up call) Care Coordination (M edication update) Start: 11-06-2023 Telephone encounter Steph Rendon CMA [facility] Comment on above: Care Coordination (H ospital update) Start: 11-05-2023 End: 11-06-2023 ambulatory BRIANNA RENNER [facility] Start: 11-05-2023 Telephone encounter Yvonne Baumann RN Work Phone: Hematology/Oncology Comment on above: Care Coordination (P E) Multiple subsegmenta l pulmonary emboli without acute cor pulmonale (CMS-HCC) (Primary Dx) Start: 11-05-2023 End: 11-05-2023 ambulatory SUNNY Lucas [facility] Facility:[facility] Start: 11-05-2023 End: 11-05-2023 Patient encounter procedure Brianna Renner APRN.CNP Work Phone: [facility] Start: 11-05-2023 End: 11-05-2023 [...] cardiovascular disease) Start: 10-24-2023 End: 10-24-2023 ambulatory SUNNY Zavala [facility] Facility:[facility] Start: 10-24-2023 End: 10-24-2023 Postop follow up visit related to original px Gabby Urbina MD Work Phone: Plastic Surgery Comment on above: Invasive lobular car cinoma of breast in female (HCC) (Primary Dx); Post-operative state Start: 10-23-2023 End: 10-23-2023 ambulatory MITCH GARCIA Facility:[facility] Start: 10-23-2023 End: 10-23-2023 ambulatory [facility] [place] [place] Work Phone: Hematology/Oncology Comment on above: Invasive lobular car cinoma of breast in female (HCC) (Primary Dx) Start: 10-22-2023 End: 10-22-[address] Work Phone: Nutrition Therapy Comment on above: Nutrition Assessment Start: 10-22-2023 Telephone encounter Mitch beebe MD Work Phone: Hematology/Oncology Comment on above: Disability Madi Start: 10-22-2023 End: 10-22-2023 ambulatory [place]HAMID M [place] Facility:[facility] Start: 10-22-2023 End: 10-22-2023 Patient encounter procedure Mitch Garcia MD Work Phone: [facility] Start: 10-22-2023 End: 10-22-2023 ambulatory [facility] [place] [place] Work Phone: Hematology/Oncology Comment on above: Invasive [...] Information Request) Start: 10-09-2023 End: 10-09-2023 ambulatory [facility] Start: 10-09-2023 End: 10-09-2023 Office outpatient visit 10 minutes [facility] BACK TENDER PAPER MACHINE-DIETARY SERVICES DIRECTOR Work Phone: [facility] Comment on above: Right non-suppurativ e otitis media (Primary Dx); Acute recurrent sinusitis, unspecified location; Acute rhinitis Start: 10-07-2023 Telephone encounter Eliceo Roberts mike Comment on above: Patient Question Start: 09-27-2023 End: 09-27-2023 ambulatory UNKNOWN PROVIDER Facility[facility] Start: 09-27-2023 Telephone encounter Yvonne Baumann RN Work Phone: Hematology/Oncology Comment on above: Care Coordination (a ppointments) Start: 09-26-2023 End: 09-26-2023 ambulatory KARUNAKARAVEL KARUPPASAMY Facility:[facility] Start: 09-26-2023 End: 09-26-2023 [facility] Work Phone: Pre Anesthesia Comment on above: Preoperative clearan ce (Primary Dx); Mixed hyperlipidemia; Primary hypertension; Palpitations; PETERSON (dyspnea on exertion); Disorder of mitral valve; Morbid obesity (HCC); Edema, unspecified type; Idiopathic scoliosis and kyphoscoliosis; Rheumatoid arthritis, involving unspecified site, unspecified whether rheumatoid factor present (HCC) Start: 09-26-2023 End: 09-26-[address] [facility] 1 Work Phone: Work Phone: Start: 09-25-2023 Telephone encounter [facility] General Surgery Start: 09-24-2023 End: 10-25-2023 ambulatory [facility] Start: 09-20-2023 End: 09-21-2023 ambulatory [facility] Facility:[facility] Start: 09-18-2023 End: 09-19-2023 ambulatory [facility] Start: 09-17-2023 End: 09-17-2023 ambulatory [facility] Facility:[facility] Start: 09-13-2023 End: 09-14-2023 ambulatory [facility] [place] Facility:[facility] Start: 09-13-2023 End: 09-13-2023 ambulatory HEATHER CASTILLO Facility:[facility] Start: 09-05-2023 End: 09-05-2023 ambulatory SUNNY Lucas [place] Facility:[facility] Start: 09-04-2023 End: 09-05-2023 ambulatory RITA CHAAvis AMANDA Facility:[facility] Start: 08-29-2023 End: 08-30-2023 ambulatory SUNNY Zavala [place] Facility:[facility] Start: 08-23-2023 Telephone encounter [facility] Start: 08-06-2023 End: 08-06-2023 ambulatory RITA CHAAvis AMANDA Facility:[facility] Start: 08-06-2023 End: 08-06-2023 Patient encounter procedure Ev Cai APRN.CNP Work Phone: Breast Center Comment on above: Invasive lobular car cinoma of left breast in female (HCC) (Primary Dx); S/P left mastectomy Start: 08-06-2023 End: 08-06-2023 ambulatory RITA AMANDA Facility:[facility] Start: 08-06-2023 End: 08-06-2023 ambulatory Mendoza Yang MD Work Phone: Hematology/Oncology Comment on above: Invasive lobular car cinoma of breast in female (HCC) (Primary Dx) Start: 08-06-2023 End: 08-06-2023 Patient encounter procedure Mendoza Yang MD Work Phone: [facility] Start: 07-30-2023 End: 07-30-2023 ambulatory RITA AMANDA Facility:[facility] Start: 07-29-2023 End: 07-30-2023 ambulatory RITA AMANDA Facility:[facility] Start: 07-29-2023 End: 07-29-2023 Patient encounter status Rita Amanda Work Phone: Start: 07-29-2023 End: 07-29-2023 Subsequent hospital visit by physician [facility] Work Phone: Molecular Imaging Comment on above: Invasive lobular car cinoma of breast in female (HCC) [C50.919] Start: 07-26-2023 End: 07-26-2023 ambulatory RITA AMANDA Facility:[facility] Start: 07-26-2023 Encounter for other preprocedural examination ALISSAANISA JENKINS [facility] Start: 07-26-2023 End: 07-26-2023 PAT [facility] 4 Work Phone: Pre Anesthesia Comment on above: Preop examination (P rimary Dx); Mixed hyperlipidemia; Primary hypertension; Palpitations; PETERSON (dyspnea on exertion); Gastroesophageal reflux disease, unspecified whether esophagitis present; Disorder of mitral valve; Morbid obesity (HCC); Edema, unspecified type; Idiopathic scoliosis and kyphoscoliosis; Rheumatoid arthritis, involving unspecified site, unspecified whether rheumatoid factor present (HCC) Start: 07-26-2023 End: 07-26-2023 Preprocedural examination done [facility] Work Phone: Work Phone: Start: 07-24-2023 Telephone encounter Leatha tillman RN Work Phone: Breast Center Comment on above: 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 Start: 07-23-2023 End: 07-23-2023 Patient encounter procedure [...] (HCC) (Primary Dx) Start: 07-12-2023 Telephone encounter Cymbre Arnaldo RN Breast Center Start: 02-28-2023 End: 02-28-2023 ambulatory Nikko Astorga Facility:[facility] Start: 02-28-2023 End: 02-28-2023 Admission to same day surgery center DO Janet Dillard Work Phone: [facility] [place] Work Phone: Start: 02-28-2023 End: 02-28-2023 ambulatory DO Janet Dillard Work Phone: [facility] Work Phone: Start: 02-11-2023 ambulatory RITA CHAAvis AMANDA Fa cility:[facility] Start: 02-08-2023 ambulatory Micah Son DO Work Phone: Orthopaedics Start: 02-08-2023 E-mail encounter fro m caregiver Micah Albarran Son DO Work Phone: NAYAN HO[facility] Start: 02-07-2023 End: 02-07-2023 ambulatory RITA CHAAvis AMANDA Facility:[facility] Start: 02-05-2023 End: 02-05-2023 ambulatory RITA CHAAivs AMANDA Facility:[facility] Start: 01-31-2023 End: 01-31-2023 ambulatory RITA CHAAvis AMANDA Facility:[facility] Start: 01-31-2023 Encounter for other preprocedural examination SUNNY JENKINS [facility] Start: 01-30-2023 Telephone encounter Elida jurado PA-C Work Phone: Pre Anesthesia Comment on above: Reschedule [facility] Start: 01-29-2023 End: 01-29-2023 Evaluation and management of inpatient RITA CHAAvis AMANDA Facility:[facility] Start: 01-29-2023 End: 01-29-2023 Admission to establishment [facility] [place] [facility] Work Phone: [facility] Start: 01-29-2023 End: 01-29-2023 ambulatory [facility] [place] [facility] Work Phone: Pre Anesthesia Comment on above: Canceled (CC cx: Equ ipment, Prep, Appropriateness) Start: 12-10-2022 End: 12-11-2022 Evaluation and management of inpatient DR DONTE CUELLAR . Facility: Start: 12-07-2022 End: 12-07-2022 ambulatory Debbie Ramirez Other [facility] [employer] Other Start: 12-07-2022 Office outpatient vi sit 15 minutes Debbie Ramirez [facility] Start: 12-03-2022 End: 12-03-2022 ambulatory Karen Parrish Other [facility] [employer] Other Start: 12-03-2022 Office outpatient vi sit 25 minutes Karen Parrish [facility] Start: 10-02-2022 End: 10-02-2022 ambulatory Nikko Astorga Facility:[facility] Start: 10-02-2022 End: 10-02-2022 ambulatory PHYSICIAN NO [facility] Work Phone: Start: 10-02-2022 End: 10-02-2022 Departed Referred PHYSICIAN NO [facility] [place] Work Phone: Start: 09-19-2022 End: 09-19-2022 ambulatory Nell Ronnie BACK TENDER PAPER MACHINE.DIETARY SERVICES DIRECTOR Work Phone: Gastroenterology Comment on above: Gastroesophageal ref lux disease, unspecified whether esophagitis present (Primary Dx); Screening for colon cancer; Hiatal hernia Start: 09-19-2022 End: 09-19-2022 Telemedicine consultation with patient Nell Trujillo BACK TENDER PAPER MACHINE.DIETARY SERVICES DIRECTOR Work Phone: [facility] Start: 09-06-2022 End: 09-06-2022 Patient encounter procedure Micah Son DO Work Phone: Orthopaedics Comment on above: 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 (Primary Dx) Start: 08-12-2022 End: 08-12-2022 ambulatory DO Janet Dillard Work Phone: [facility] Work Phone: Start: 08-12-2022 End: 08-12-2022 Departed Referred DO Janet Dillard Work Phone: [facility] [place] Start: 07-03-2022 ambulatory Facility:[facility] Start: 07-02-2022 End: 07-02-2022 ambulatory Janet G Gilma Facility:[id number] Start: 07-02-2022 End: 07-02-2022 ambulatory DO Janet Raj Dillard Work Phone: [facility] Work Phone: Start: 07-02-2022 End: 07-02-2022 Patient encounter procedure DO Janet Dillard Work Phone: [facility]-Electrodiagnostics Start: 06-17-2022 End: 06-17-2022 ambulatory Dayanna Schumacher Other [employer] Other Start: 06-17-2022 Office outpatient vi sit 15 minutes Dayanna Schumacher [facility] Start: 05-02-2022 End: 05-02-2022 Patient encounter procedure HENRIK Perez Work Phone: [facility] [place] Start: 04-03-2022 End: 04-03-2022 Orders Only Lopez Salmon DO Work Phone: Neurology Comment on above: Thyroid nodule (Prim parker Dx) BMI 50.0-59.9, adult (HCC) (Primary Dx); Primary osteoarthritis of left hip; Type 2 diabetes mellitus with hyperglycemia, unspecified whether retirement insulin use (HCC) Start: 03-29-2022 End: 03-29-2022 Subsequent hospital visit by physician [facility] Work Phone: [facility] Radiology Ultrasound Comment on above: Thyroid [...] Dx) Start: 03-13-2022 End: 03-14-2022 ambulatory GABBY GREY Facility: Start: 12-19-2021 End: 12-19-2021 Patient encounter procedure Micah Son DO Work Phone: Orthopaedics Comment on above: 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 (Primary Dx) Start: 12-15-2021 Telephone encounter Nayan Yan DO Work Phone: [address] [place] [address] Comment on above: Results Start: 12-08-2021 End: 12-08-2021 ambulatory [facility] Work Phone: Cardiology Comment on above: Event (Zio patch) Start: 12-08-2021 End: 12-08-2021 Patient encounter procedure John Dc MD Work Phone: Cardiology Comment on above: AF (paroxysmal atria l fibrillation) (HCC) (Primary Dx) Start: 07-07-2021 End: 07-07-2021 ambulatory Debbie Ramirez Other [employer] Other Start: 07-07-2021 Nursing evaluation o f patient and report Debbie Ramirez [facility] Start: 10-02-2018 Patient encounter procedure [facility] Start: 05-19-2018 Patient encounter procedure [facility] Start: 03-31-2018 End: 04-03-2018 Patient encounter procedure [facility] Start: 02-24-2018 Patient encounter procedure DONTE Odonnell [facility] Procedures Date Procedure Procedure Detail Performing Clinician Start: 11-05-2023 CBC + DIFF Mitch beebe MD Work Phone: Start: 11-05-2023 Comprehensive metabo lic panel Mitch Garcia MD Work Phone: Start: 10-22-2023 Blood count complete auto&auto difrntl wbc Cathy Lucas Templeton PA-C Work Phone: Start: 07-29-2023 Lymphatics & lymph n odes imaging Heather Castillo MD Work Phone: Start: 07-23-2023 Us lmtd joint/oth no nvasc xtr strux r-t w/img Heather Castillo MD Work Phone: Start: 05-14-2023 Adult depression scr eening assessment Kalyani Rachel CMA Start: 04-24-2023 Lipid 1996 panel - S [place] or Plasma Cymbre Arnaldo RN Start: 02-11-2023 Colonoscopy Cymbre Brennen torres RN Start: 09-06-2022 Arthrocentesis aspir &/inj major jt/bursa w/us Micah Son DO Work Phone: Start: 08-12-2022 Urine culture PHYSICIAN NO FAMILY Start: 03-29-2022 Us soft tissue head & neck real time imge docm Meño Cadena DO Work Phone: Start: 02-08-2022 Mammography Lopez gurrola DO Work Phone: Start: 12-19-2021 End: 12-19-2021 Arthrocentesis aspir&/inj major jt/bursa w/us Micah Son DO Work Phone: Start: 09-12-2020 Mammography Meño rod DO Work Phone: Start: 03-19-2018 Antibody screen DONTE MEEK DOLLY Comment on above: Performed By: #### T SCR30 #### [address] [address] Start: 07-23-2016 Colonoscopy John torres MD Work Phone: Start: 01-10-2010 Adult depression scr eening assessment John Dc MD Work Phone: Plan of Treatment Date Care Activity Detail Author Start: 04-24-2028 Lipid 1996 panel - Serum or Plasma Lipid Screening Start: 04-24-2028 Lipid panel Lipid Screening Start: 02-12-2028 Colonoscopy Colonoscopy Start: 02-12-2028 Colorectal Cancer Screening Colorectal Cancer Screening Start: 02-12-2028 Screening for malignant neoplasm of colon Start: 11-09-2027 LIPID SCREEN LIPID SCREEN Start: 11-04-2026 Diabetes Screening Diabetes Screening Start: 10-22-2026 Diabetes Screening Diabetes Screening Start: 09-20-2026 Diabetes Screening Diabetes Screening Start: 07-26-2026 Diabetes Screening Diabetes Screening Start: 04-24-2026 Diabetes Screening Diabetes Screening Start: 11-08-2025 DIABETES SCREEN DIABETES SCREEN Start: 03-16-2025 DIABETES SCREEN DIABETES SCREEN Start: 03-15-2025 DIABETES SCREEN DIABETES SCREEN Start: 10-09-2024 Adult BMI Screening Adult BMI Screening [facility] Start: 10-09-2024 Tobacco Screening Tobacco Screening [facility] Start: 09-18-2024 Adult BMI Screening Adult BMI Screening [facility] Start: 08-07-2024 Adult BMI Screening Adult BMI Screening [facility] Start: 08-07-2024 Tobacco Screening Tobacco Screening [facility] Start: 05-19-2024 End: 05-19-2024 Patient encounter procedure 05/19/2024 3:30 PM EDT Office Visit [facility] [address] [place] [address] [place] [address] Sunny Jenkins MD [address], [place] [address] [facility] Start: 05-14-2024 Depression Screening Depression Screening [facility] Start: 05-14-2024 Fall Risk Screening Fall Risk Screening [facility] Start: 05-14-2024 Medicare Annual Wellness Visit Medicare Annual Wellness Visit [facility] Start: 04-30-2024 Screening for malignant neoplasm of breast Mammogram Screening Start: 11-14-2023 End: 11-14-2023 Patient encounter procedure 11/14/2023 3:00 PM EDT Office Visit [facility] [address] [place] [address] Leo Gerard, BACK TENDER PAPER MACHINE-DIETARY SERVICES DIRECTOR [address] [place] [address], [place] [address] [facility] Start: 11-11-2023 End: 02-10-2024 CBC W Auto Differential panel - Blood CBC + DIFF Lab Routine Chest pain, unspecified type Invasive lobular carcinoma of breast in female (HCC) Generalized edema Expected: 11/11/2023, Expires: 02/10/2024 [facility] Work Phone: Comment on above: Expected: 11/11/2023, Expires: 4 Start: 11-11-2023 End: 02-10-2024 Comprehensive metabolic 2000 panel - Serum or Plasma COMP METABOLIC PANEL Lab Routine Chest pain, unspecified type Invasive lobular carcinoma of breast in female (HCC) Generalized edema Expected: 11/11/2023, Expires: 02/10/2024 [facility] Work Phone: Comment on above: Expected: 11/11/2023, Expires: 4 Start: 11-05-2023 End: 02-04-2024 CBC W Auto Differential panel - Blood [facility] Work Phone: Comment on above: Expected: 11/05/2023 (Approximate), Expi res: 02/04/2024 Start: 11-05-2023 End: 02-04-2024 Comprehensive metabolic 2000 panel - Serum or Plasma COMP METABOLIC PANEL Lab Routine Invasive lobular carcinoma of breast in female (HCC) Expected: 11/05/2023 (Approximate), Expires: 02/04/2024 [facility] Work Phone: Comment on above: Expected: 11/05/2023 (Approximate), Expi res: 02/04/2024 Start: 10-08-2023 End: 10-08-2023 Patient encounter procedure 10/08/2023 9:00 AM EST Appointment [facility] [address] [place] [id number] Arrived [facility] Comment on above: Arrived Start: 08-26-2023 Advance Directive Discussion Advance Directive Discussion Start: 08-26-2023 Depression Assessment Depression Assessment Start: 04-26-2023 Covid-19 Vaccine () Covid-19 Vaccine () Start: 04-26-2023 Influenza vaccination Start: 02-28-2023 [facility] Start: 02-28-[address] [facility] Start: 02-08-2023 Mammography Start: 02-08-2023 Screening for malignant neoplasm of breast Mammogram Screening Start: 02-03-2023 COVID-19 VACCINE (4 - Booster for Romina series) COVID-19 VACCINE (4 - Booster for Romina series) Start: 08-26-2022 ADVANCE DIRECTIVE DISCUSSION ADVANCE DIRECTIVE DISCUSSION Start: 08-26-2022 DEPRESSION ASSESSMENT DEPRESSION ASSESSMENT Start: 04-26-2022 Influenza vaccination Start: 11-16-2021 COVID-19 VACCINE (3 - Booster for Romina series) COVID-19 VACCINE (3 - Booster for Romina series) Start: 09-13-2021 COVID-19 VACCINE (3 - Booster for Romina series) COVID-19 VACCINE (3 - Booster for Romina series) Start: 09-12-2021 Mammography MAMMOGRAM Start: 08-26-2021 ADVANCE DIRECTIVE DISCUSSION ADVANCE DIRECTIVE DISCUSSION Start: 07-23-2021 Colonoscopy COLONOSCOPY Start: 07-23-2021 COLORECTAL CANCER SCREENING COLORECTAL CANCER SCREENING Start: 04-02-2021 DIABETES SCREEN DIABETES SCREEN Start: 11-04-2019 BONE DENSITY BONE DENSITY Start: 11-04-2019 Bone Density Screening Bone Density Screening [facility] Start: 11-04-2019 PNEUMOVAX AGE 65 AND OVER WITH 5YR LOOKBACK (#1) PNEUMOVAX AGE 65 AND OVER WITH 5YR LOOKBACK (#1) Start: 11-04-2019 Screening for osteoporosis Bone Density Screening Start: 2014 RSV Vaccine (1 - 1-dose 60+ series) RSV Vaccine (1 - 1-dose 60+ series) Start: 01-10-2011 Adult depression screening assessment DEPRESSION SCREENING Start: 2004 SHINGRIX VACCINE (1 of 2) SHINGRIX VACCINE (1 of 2) [facility] Start: 11-04-1999 COLOGUARD (FIT-DNA) COLOGUARD (FIT-DNA) Start: 11-04-[address] COLONOGRAPHY Start: 11-04-1999 FECAL OCCULT BLOOD FECAL OCCULT BLOOD Start: 11-04-1999 LIPID SCREEN LIPID SCREEN Start: 11-04-1999 Screening for malignant neoplasm of colon Start: 11-04-1999 SIGMOIDOSCOPY SIGMOIDOSCOPY Start: 1994 Mammography MAMMOGRAM Start: 1994 Screening for malignant neoplasm of breast Mammogram Screening Start: 1984 Zoledronic acid therapy ALPHA-1 ANTITRYPSIN DEFICIENCY SCREENING Start: 1973 DTaP,Tdap and Td Vaccines (1 - Tdap) DTaP,Tdap and Td Vaccines (1 - Tdap) [facility] Start: 1973 Urine microalbumin profile Start: 1972 Adult BMI Follow Up Plan Adult BMI Follow Up Plan [facility] Start: 1972 ANNUAL PCP TEAM CHRONIC DISEASE VISIT ANNUAL PCP TEAM CHRONIC DISEASE VISIT Start: 1972 BP CONTROLLED (<130/80) BP CONTROLLED (<130/80) [facility] Start: 1972 HEPATITIS C SCREENING HEPATITIS C SCREENING Start: 1972 Hepatitis C screening Hepatitis C Screening Start: 1972 SPIROMETRY SPIROMETRY Start: 1960 PNEUMOCOCCAL: 65+ (1 - PCV) PNEUMOCOCCAL: 65+ (1 - PCV) Bacteria identified in Urine by Culture Urine Culture [facility] End: 12-04-2024 CTA Pulmonary arteries for pulmonary embolus W contrast IV CT CHEST W IVCON PE Radiology STAT Chest pain, unspecified type 1 Occurrences starting 11/05/2023 until 12/04/2024 [facility] Work Phone: Comment on above: 1 Occurrences starting 11/05/2023 until 12/04/2024 End: 12-08-2022 Echocardiography ECHO Cardiology Routine AF (paroxysmal atrial fibrillation) (HCC) 1 Occurrences starting 12/08/2021 until 12/08/2022 [facility] Work Phone: Comment on above: 1 Occurrences starting 12/08/2021 until 12/08/2022 End: 09-19-2023 EGD DIAGNOSTIC EGD DIAGNOSTIC Endoscopy Routine Gastroesophageal reflux disease, unspecified whether esophagitis present Hiatal hernia 1 Occurrences starting 09/19/2022 until 09/19/2023 [facility] Work Phone: Comment on above: 1 Occurrences starting 09/19/2022 until 09/19/2023 OUTSIDE VENDOR CARDI AC OUTPATIENT EXTENDED RHYTHM RECORDING (WITHOUT TELEMETRY) OUTSIDE VENDOR CARDIAC OUTPATIENT EXTENDED RHYTHM RECORDING (WITHOUT TELEMETRY) Holter Routine AF (paroxysmal atrial fibrillation) (HCC) Ordered: 12/08/2021 [facility] Work Phone: Comment on above: Ordered: 12/08/2021 Patient Education [facility] Need le Biopsy, Thyroid [facility] Work Phone: End: 09-19-2023 Screening colonoscopy COLONOSCOPY SCREENING Endoscopy Routine Screening for colon cancer 1 Occurrences starting 09/19/2022 until 09/19/2023 [facility] Work Phone: Comment on above: 1 Occurrences starting 09/19/2022 until 09/19/2023 End: 08-15-2024 US AXILLA ONLY LEFT US AXILLA ONLY LEFT Radiology Routine Malignant neoplasm of left female breast, unspecified estrogen receptor status, unspecified site of breast (HCC) 1 Occurrences starting 07/17/2023 until 08/15/2024 [facility] Work Phone: Comment on above: 1 Occurrences starting 07/17/2023 until 08/15/2024 US HIP-INJECTION LT (POC) KELLY USE ONLY US HIP-INJECTION LT (POC) KELLY USE ONLY Imaging Procedures Routine Primary osteoarthritis of left hip Ordered: 09/06/2022 [facility] Work Phone: Comment on above: Ordered: 09/06/2022 Us soft tissue head & neck real time imge docm US THYROID/PARATHYROID Radiology Routine Thyroid nodule 03/29/2022 4:34 PM EDT [facility] Work Phone: [facility] Immunizations Immunization Date Immunization Notes Care Provider Lucian bonds 12-09-2022 COVID-19, mRNA, LNP- S, PF, 100mcg/0.5mL Dose Kalyani Rachel [facility] 04-28-2022 zoster vaccine recombinant Kalyani Rachel [facility] 12-31-2021 pneumococcal polysaccharide vaccine, 23 valent Kalyani Rachel [facility] 02-14-2021 pneumococcal conjuga te vaccine, 13 valent Kalyani Rachel [facility] 02-14-2021 zoster vaccine recombinant Kalyani Rachel [facility] 08-04-2016 pneumococcal conjuga te vaccine, 13 valent Kalyani Rachel [facility] Payers Date Payer Category Payer Self-pay [id number] 2021 Unknown [employer] SUPPLEMENT [id number] 2021-Present [phone] [id number] [employer] [facility] [place] [address] Indemnity [id number] 2021 Unknown [id number] 2021 Unknown [id number] 2019 Medicare MEDICARE MEDICAR E A AND B [id number] 2019-Present [phone] [place] [address] Medicare [id number] 2019 Medicare [id number]. [id number] 1959 Medicare [id number] 1959 Unknown [id number] 1954 Unknown [id number] 1954 Unknown [id number] 1954 Unknown [id number] 1954 Unknown [id number] [id number] 1954 Unknown [id number] [id number] 1954 Unknown [id number] [id number] 1954 Unknown [id number] 1954 Unknown [id number] [id number] Unknown [id number] Unknown Hardik BC/BS [id number] Unknown [id number] Unknown [id number] Unknown [id number] Unknown [id number] Social History Date Type Detail Facility Tobacco smoking stat us NEIS Unknown if ever smoked [facility] Start: 1955 Sex Assigned At Female F [facility] Start: 04-03-2022 End: 04-02-2023 Tobacco smoking status NHIS Never smoked tobacco Start: 12-08-2021 End: 10-09-2023 Alcohol intake Current drinker of alcohol (finding) Start: 03-19-2018 History SDOH Alcohol Comment socially- couple times per year Start: 1955 Sex Assigned At Not on file [facility] Start: 11-28-2021 End: 04-03-2022 Exposure to SARS-CoV-2 (event) Not sure Start: 10-06-2020 End: 07-12-2023 Sex Assigned At Start: 03-14-2022 History SDOH Financial 5 Start: 03-14-2022 History SDOH Food Worry 1 Start: 03-14-2022 History SDOH Transpo rt Med 2 Start: 04-03-2022 End: 04-02-2023 Tobacco use and exposure Smokeless tobacco non-user Work Phone: Start: 10-06-2020 End: 07-12-2023 History of Social function How hard is it for y ou to pay for the very basics like food, housing, medical care, and heating Not hard at all (I/We) worried wheth er (my/our) food would run out before (I/we) got money to buy more. Never true In the past 12 month s, was there a time when you were not able to pay the mortgage or rent on time? No Start: 04-02-2023 Alcohol Comment rare [facility] Medical Equipment Procedure Code Equipment Code Equipment Origin al Text Equipment Identifier Dates Cement Simplex P Bone Radiopaque Full Dose - [id number] Start: 03-31-2018 Cement Simplex P Bone Radiopaque Full Dose - [id number] Start: 03-31-2018 Cement Simplex P Bone Radiopaque Full Dose - [id number] Start: 03-31-2018 Stem Triathlon 1 2mm Cocr 50mm Femoral Cemented Total Stabilized Knee - [id number] Start: 03-31-2018 Insert Triathlon 4 X3 9mm Tibial Posterior Stabilize Knee - [id number] Start: 03-31-2018 Component Triath lito 33mm X3 9mm Patellar Symmetric Knee Superior - [id number] Start: 03-31-2018 Insert Triathlon 4 X3 11mm Tibial Bearing Posterior Stabilize Knee - [id number] Start: 03-31-2018 Component Triath lito 33mm X3 9mm Patellar Symmetric Knee Superior - [id number] Start: 03-31-2018 Component Triath lito 4 Femoral Cemented Posterior Stabilize Knee Right - [id number] Start: 03-31-2018 Component Triath lito 4 Femoral Cemented Posterior Stabilize Knee Left - [id number] Start: 03-31-2018 Baseplate Triath lito 4 [place] Cocr Tibial Total Stabilize Cemented Knee - [id number] Start: 03-31-2018 Baseplate Triath lito 4 [place] Cocr Tibial Total Stabilize Cemented Knee - [id number] Start: 03-31-2018 Screw Lcp 6.5mm 8mm Partial Thread Stainless Steel 45mm 32mm Bone Large - [id number] Start: 03-31-2018 Washer Lcp 13mm 6.6mm Stainless Steel Orthopedic 4.5-7.3mm Screw Nonsterile - [id number] Start: 03-31-2018 Screw Lcp 6.5mm 8mm Full Thread Stainless Steel 35mm Bone Large Hexagonal - [id number] Start: 03-31-2018 Goals Date Patient Goal Desired Activity /State Clinical Notes 06-28-2021 to 11-11-2023 Telephone Encounter - Yvonne Baumann RN - 11/11/2023 3:51 PM EDTTelephone Encounter - Yvonne Baumann RN - 11/11/2023 3:00 PM EDTTelephone Encounter - Will Dean CMA - 11/11/2023 9:11 AM EDT Note Date [...] Yvonne Baumann RN documented in this encounter 11-11-2023 Miscellaneous Notes DISCHARGE CALL BACK Today's date: November 11, 2023 Notified of Pt discharge by: previous telephone encounter Patient discharged on 11/08/23 [facility] [place] Primary Cancer Diagnosis: Breast Cancer Admitting Diagnosis: PE, acute on chronic diastolic hear failure Discharge Summary/SBAR reviewed: Yes Handoff Discussed with [employer] Electric Refrigerator Servicer: No, unavailable Psychosocial Risk Factors: None If [...] 11/18. Patient reminded of follow-up appointment with [facility] provider, Dr Garcia on 11/19/23: Yes Discussed [...] after hours and weekend phone number? YES Yvonne Baumann RN documented in this encounter 11-11-2023 Miscellaneous Notes D/C summary scanned. Pt has been discharged. Nel: can you get d/c summary please. Thanks Yvonne Baumann RN Spoke with Harlan bedside nurse. He states pt is doing well and is asking about a couple of meds. Med list reviewed with nurse. Nurse states pt did not receive any steroids yesterday or today post chemo infusion. No further questions Yvonne Baumann RN Spoke with Nery bedside nurse who states pt is doing well. Pt currently on a heparin drip. Pt's sats are normal on room air. Denies any concerns at this time. Yvonne Baumann RN documented in this encounter 11-11-2023 Miscellaneous Notes Patient requesting refill. Patient stated [facility] requested her to double her current dose of 20 mg. Mnial called to inform she is out of medication and needs this today. documented in this encounter [facility] 11-11-2023 Telephone encounter Note Patient requesting refill. Patient stated [facility] requested her to double her current dose of 20 mg. [facility] 11-11-2023 Telephone encounter Note Minal called to inform she is out of medication and needs this today. [facility] 11-06-2023 Miscellaneous Notes ----- Message from [...] also informed us she is currently in [facility] and was admitted. The nurse was in the room at the time I explained results and they went ahead and scheduled a SHEBA and at that time would like to discuss results. documented in this encounter [facility] 11-06-2023 Telephone encounter Note ----- Message from Sunny Jenkins MD sent at 11/05/2023 8:24 PM EDT ----- Abnormal result. CT Angio concerning ofr segmental Pulmonary Embolism, patient should initiate Eliquis for a minimum of 3 months WALLACE. Please call and schedule appointment with any provider to review. I will prescribe the medicine which patient should start. SUNNY JENKINS MD [facility] 11-06-2023 Telephone encounter Note Called patient and informed her. She stated understanding and also informed us she is currently in [facility] and was admitted. The nurse was in the room at the time I explained results and they went ahead and scheduled a SHEBA and at that time would like to discuss results. [facility] 11-05-2023 Miscellaneous Notes Pt notified of scan results and will picker medication today. Yvonne G Egan, RN Dr Garcia received a call from radiologist stating pt has a PE on scan. Dr Garcia would like to start pt on Eliquis Please sign pending script. Yvonne Baumann RN documented in this encounter 11-05-2023 Note [facility] 11-05-2023 History of Present illness Narrative PATIENT NAME: Minal Caputo CLINIC NO.: [id number] ATTENDING PHYSICIAN: Mitch Garcia MD DATE OF [...] cm, LVI present, Margins Negative, ER 80%, MA 5% and Her-2 IHC-0. Germline testing 07/2023: [...] grade 1 invasive lobular carcinoma ER 80%, MA 5% and HER2/akash with IHC 0. A [...] elected to transfer her care to the [facility] and underwent a L breast mastectomy and [...] Range Status 11/05/2023 5.4 % Final Abs [place] Date Value Ref Range Status 11/05/2023 0.38 [...] Examined (sentinel and non-sentinel) 4 Number of [place] Nodes Examined 4 pTNM CLASSIFICATION (AJCC 8th [...] invasive lobular carcinoma, grade 2, ER 80%, MA 5% and HER2/akash negative, IHC 0, cancer [...] please do not hesitate to contact Mitch Giuseppeyelenadusty, [facility] [phone]. Brianna Renner APRN.NEY Hematology/Medical Oncology [facility] CC: Sunny Jenkins MD I spent a total of 30 minutes on the date of the service which included preparing to see the patient, [id number] patient care, completing clinical documentation, obtaining and/or reviewing separately obtained history, performing a medically appropriate examination, counseling and educating the patient/family/caregiver, ordering medications, tests, or procedures, independently interpreting results (not separately reported), and communicating results to the patient/family/caregiver. documented in this encounter 11-05-2023 Nurse Note Patient is very winded. She states that she is all the time now. Started a few days ago. documented in this encounter 11-01-2023 Miscellaneous Notes She requested a refill on her losartan, also. Which is not on the patient list. documented in this encounter [facility] 11-01-2023 Telephone encounter Note She requested a refill on her losartan, also. Which is not on the patient list. [facility] 10-24-2023 Note [facility] 10-24-2023 History of Present illness Narrative [...] Past Histories independently gathered by the clinical academic support assistant and the remaining scribed note accurately describes my personal service to the patient. documented in this encounter 10-23-2023 Note [facility] 10-23-2023 Miscellaneous Notes Paperwork faex to Lydia @ [phone]. Viky Lowry STD paperwork for Lydia has been completed and placed in folder to be signed. Viky Lowry documented in this encounter 10-23-2023 History of Present illness Narrative SOCIAL WORK FOLLOW UP NOTE: [facility] Date of service:10/23/23 Minal Campos Nessalucie is being seen for a follow up [...] appropriate. BABS Canales documented in this encounter 10-22-2023 Note [facility] 10-22-2023 History of Present illness Narrative SOCIAL WORK FOLLOW UP NOTE: [facility] Date of service:10/22/23 Minal Porrasbrandonlucie is being seen for a follow up [...] appropriate. BABS Canales documented in this encounter 10-22-2023 Note [facility] 10-22-2023 Note [facility] 10-22-2023 Note [facility] 10-22-2023 History of Present illness Narrative Summary: Doxorubicin administration Doxorubicin administered via right chest infusaport without complications. Doxorubicin administered via free flowing normal saline with positive blood return maintained throughout infusion. Pt denied any pain or discomfort at site. Lilia Cid RN,BSN,OCN documented in this encounter 10-22-2023 History of Present illness Narrative PATIENT NAME: Minal Caputo CLINIC NO.: [id number] ATTENDING PHYSICIAN: Mitch Garcia MD DATE OF [...] cm, LVI present, Margins Negative, ER 80%, MA 5% and Her-2 IHC-0 Germline testing 07/2023: [...] grade 1 invasive lobular carcinoma ER 80%, MA 5% and HER2/akash with IHC 0. A [...] elected to transfer her care to the [facility] and underwent a L breast mastectomy and [...] Range Status 10/22/2023 4.4 % Final Abs [place] Date Value Ref Range Status 10/22/2023 0.54 [...] Examined (sentinel and non-sentinel) 4 Number of [place] Nodes Examined 4 pTNM CLASSIFICATION (AJCC 8th [...] invasive lobular carcinoma, grade 2, ER 80%, MA 5% and HER2/akash negative, IHC 0, cancer [...] do not hesitate to contact me at [phone]. Mitch Garcia MD Hematology/Medical Oncology [facility] Hightower spent a total of 30 minutes on the date of the service which included preparing to see the patient, [id number] patient care, completing clinical documentation, obtaining and/or reviewing separately obtained history, performing a medically appropriate examination, and counseling and educating the patient/family/caregiver. CC: Sunny Jenkins MD documented in this encounter 10-22-2023 History of Present illness Narrative Oncology [...] Comments: weight fluctuations expected given diuretic therapy [place] Body Weight: 46.9kg Estimated kilocalorie needs: 8309-0204 kilocalories determined by 30-35 kcal/kg Estimated protein needs: 47-70 grams determined by 1.0-1.5 g/kg [place] weight Estimated fluid needs: ~8834-1415 milliliters based on 1 mL per kcal [...] MS, RDN, LD documented in this encounter 10-14-2023 Miscellaneous Notes Patient has been rescheduled [...] please get records from PCP. Thanks Yvonne Baumann, RN documented in this encounter 10-11-[address] labs for appt/tx on 10/15. Viky Lowry documented in this encounter 10-10-2023 Miscellaneous Notes Crystal from [facility] notes that they received an order from Dr Garcia for a compression sleeve. Requesting clinical documentation. Office notes from 09/20/23 (Plastic Surgery) and 09/17/23 (Dr Garcia) faxed to [phone]. Kendal Watts RN documented in this encounter 10-09-2023 History of Present illness Narrative Subjective Patient ID: Minal Caputo is a 67 y.o. female. LA Turner presents to the office for sick visit. Patient's past medical history is significant for right breast mass, positive for ILC grade 1 carcinoma, she is following with and will begin chemotherapy for invasive malignant [...] this for 7 days. MIR Sheppard 10/09/23 6411 documented in this encounter [facility] 10-07-2023 Miscellaneous Notes Received call from Minal with concerns of extensive itching and redness around the port she had placed on September 27. Had patient send picture to IR coordinator email and reviewed image and concerns with Dr. Villafuerte, who originally placed port at [place]. Dr. CLARK spoke with patient's oncologist, Dr. Garcia, and plan was put in place to postpone chemo treatment and take oral steroids for one week to see if rash and itching improves. Patient updated and agreeable to plan of care. documented in this encounter 09-27-2023 Miscellaneous Notes Patient is scheduled for her Neulasta injection on , 10/10 at 8:30am. I notified Deepika Garcia, who will meet with her during her treatment on Saturday, 10/09 to discuss wigs. Thanks, Yessi Caban Pt is agreeable to coming in day [...] Yvonne Baumann RN documented in this encounter 09-26-2023 Instructions Nell Martin PA-C - 09/26/2023 8:02 AM EST PATIENT PREOPERATIVE INSTRUCTIONS Lynda Villafuerte* has scheduled you for your procedure at this surgery center: [facility]: [phone] --[address] [place] [address]. Please enter through the entrance closest to [...] Procedures: - YOU MUST HAVE A RESPONSIBLE POCKET MAKER TAKE YOU HOME. A TELETRAY OPERATOR OR COIL FINISHER CANNOT BE MADE A RESPONSIBLE POCKET MAKER. - We recommend that a responsible person [...] Advance Directive, please fax a copy to [phone] or email to for it to be [...] chart that day. documented in this encounter 09-26-2023 History and physical note HISTORY AND [...] fevers. Neuro: No history of TIA's, stroke, PATENT ENGINEER tumor, impaired sensorium, hemiplegia, paraplegia or quadraplegia. [...] or incontinence,, stones or chronic kidney disease JOB LITHOGRAPHER: See HPI : N/A, Patient's last menstrual [...] Obtained from outside source and scanned into [employer] Date: 09/18/2023 Result: LV systolic function normal [...] TIME: 7:57 AM documented in this encounter 09-25-2023 Miscellaneous Notes Spoke with patient regarding NM HMT Molecular breast imaging localization test that Dr. Soto ordered on 07/10/23. Patient originally had it scheduled with [facility] on 08/08/23 but patient had cancelled it through her MyChart. Patient stated today that she went to instead and has already had a Mastectomy. Will inform Dr. Soto. documented in this encounter [facility] 09-25-2023 Telephone encounter Note Spoke with patient regarding NM HMT Molecular breast imaging localization test that Dr. Soto ordered on 07/10/23. Patient originally had it scheduled with [facility] on 08/08/23 but patient had cancelled it through her MyChart. Patient stated today that she went to instead and has already had a Mastectomy. Will inform Dr. Soto. [facility] 09-24-2023 Note [facility] 09-24-2023 Note [facility] 09-24-2023 Note [facility] 09-20-2023 Note HNO ID: [id number] Author: GABBY URBINA MD Service: ? Author [...] 4 weeks after surgery. 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 Do not [...] -Consult to lymphedema therapy placed. Please call [phone] to schedule, change, cancel or confirm an appointment. -Return to clinic in when CASSIDY drain meets criteria for removal, okay for home health to remove drain. -Follow up w/ Dr. Urbina in 4 weeks. -If experiencing wound complications or have any questions or concerns during business hours call [phone], option 3 or after hours (after 5 pm or on the weekend) call [phone] and ask for the plastic surgery resident / fellow home service demonstrator for further instructions. If you have increasing [...] Past Histories independently gathered by the clinical academic support assistant and the remaining scribed note accurately describes my personal service to the patient. [facility] 09-17-2023 Note [facility] 09-13-2023 Note [facility] 09-13-2023 Note [facility] 09-13-2023 Note [facility] 09-05-2023 Note [facility] 09-05-2023 Note [facility] 09-04-2023 Note HNO ID: [id number] Author: ELICEO ANDRADE RN Service: ? Author Type: Registered Nurse Type: Nursing Progress Note Filed: 09/04/2023 17:21 Note Text: Plastics paged about pt BP of 165/110. [facility] 09-04-2023 Note [facility] 09-04-2023 Note [facility] 08-29-2023 Note [facility] 08-29-2023 Note [facility] 08-23-2023 Miscellaneous Notes Doris from Home Health called into the office and just wanted to make you aware of pts blood pressure has been running between 150-180 for her diastolic number. And has also had increased edema in her legs. documented in this encounter [facility] 08-23-2023 Telephone encounter Note [place] from Home Health called into the office and just wanted to make you aware of pts blood pressure has been running between 150-180 for her diastolic number. And has also had increased edema in her legs. [facility] 08-06-2023 Note [facility] 08-06-2023 Note [facility] 08-06-2023 History of Present illness Narrative [...] out 60-80 cc daily. Pathology: SURGICAL PATHOLOGY: [id number] Order: [id number] Collected 07/29/2023 11:29 AM Status: Final result Visible to patient: No (scheduled for 08/11/2023 4:46 PM) Dx: Invasive lobular carcinoma of breast ... 0 Result Notes Component FINAL DIAGNOSIS A. Left breast, mastectomy: - Invasive lobular carcinoma, [place] grade 2, at least 63 mm, negative [...] were communicated to Dr. Celia Donaldson, Dr. Sandro Rehman, and Juliet Cai NP by Dr. Saravanan Danielle via secure email on 16/07/2023 at 10:11 a.m. Laboratory Developed Test (LDT) Disclaimer: Performance characteristics of immunohistochemical, immunofluorescent and chromogenic in-situ hybridization tests have been determined by the performing laboratory within [facility] Pathology and Laboratory Medicine [place] ([facility], [facility], [facility], [facility], [facility], [facility], or [facility]) in a manner consistent with CLIA [...] Examined (sentinel and non-sentinel) 4 Number of [place] Nodes Examined 4 pTNM CLASSIFICATION (AJCC 8th [...] on (outside case, slides reviewed at the ) Comment(s) Invasive lobular carcinoma is present in [...] patient has no further concerns. Ev Cai APRN.CNP documented in this encounter 08-06-2023 Note [facility] 08-06-2023 Nurse Note Reviewed and confirmed with patient that there were no changes in the the nursing assessment and vitals that were completed on August 06, 2023 during previous provider appointment. Shannan Schulz documented in this encounter 08-06-2023 Nurse Note Additional intake questions: Has the patient had fever, nausea, vomiting, diarrhea, constipation, fatigue for > 1 week? No Does the patient have a decreased appetite? No Does patient want to see a Hardwood Floor Installer? No (yes to any of above refer patient to schedulers for dietitian appointment) ) Does patient have any new or increased numbness or tingling of extremities? No Is patient interested in fertility information? No Does patient need any prescription refills? No Does patient have an advanced directive in place? No, Patient referred to [facility] documented in this encounter 08-06-2023 History of Present illness Narrative BREAST CANCER FOLLOW UP NOTE SERVICE DATE: August 05, 2023 Oncology History Overview Note Prev callbacks, no prev biopsies. [place] a right breast lump few months prior [...] core biopsy ILC grade 1, ER 80% MA 5% HER2 IHC 0 07/08/23: PET: fdg [...] Stage IB (cT2, cN0, cM0, G1, ER+, MA+, HER2-) - Signed by Mendoza Yang MD on 07/23/2023 08/06/2023 Cancer Staged Staging form: Breast, AJCC 8th Edition - Pathologic stage from 08/06/2023: pT3, pN1a, G2, ER+, MA+, HER2- - Signed by Mendoza Yang MD [...] Stage IB (cT2, cN0, cM0, G1, ER+, MA+, HER2-) - Signed by Mendoza Yang MD on 07/23/2023 - Pathologic stage from 08/06/2023: pT3, pN1a, G2, ER+, MA+, HER2- - Signed by Mendoza Yang MD [...] Yang MD Associate Staff Breast Medical Oncology [facility] cc: Rita Amanda MD I spent a total of 45 minutes on the date of the service which included preparing to see the patient, [id number] patient care, completing clinical documentation, obtaining and/or reviewing separately obtained history, and performing a medically appropriate examination. documented in this encounter 07-30-2023 Note [facility] 07-29-2023 Note [facility] 07-29-2023 Note [facility] 07-29-2023 Note [facility] 07-29-2023 History of Present illness Narrative [...] 8:22AM PATIENT DISCHARGED TO: Ambulatory patient, left [place] department area. A Diagnostic radioactive procedure has taken place, with no further precautions necessary other than routine body substance precautions. More information regarding radiation safety can be found using this link: [email or web address] SIGNATURE: RT Nick(Junior) PATIENT NAME: Minal Caputo DATE: July 29, 2023 TIME: 8:30 AM PAGER/CONTACT #: documented in this encounter 07-26-2023 History and physical note HISTORY AND [...] fevers. Neuro: No history of TIA's, stroke, PATENT ENGINEER tumor, impaired sensorium, hemiplegia, paraplegia or quadraplegia. [...] or incontinence,, stones or chronic kidney disease JOB LITHOGRAPHER: See HPI : N/A, Patient's last menstrual [...] 418 QTC Calculation (Bazett) 444 Calculated P [place] 30 Calculated R [place] 13 Calculated T [place] 40 Impression NORMAL SINUS RHYTHM NORMAL ECG Confirmed by LAMINE ALY MD ([id number]) on 02/06/2023 10:07:03 AM Type of Monitor: [...] fusion rods again noted. RA (rheumatoid arthritis) ([facility]) Assessment: sero positive RA methotrexate and [...] TIME: 12:03 PM documented in this encounter 07-26-2023 Instructions Maria M Mari APRN.NEY - 07/26/2023 11:17 AM EST PATIENT PREOPERATIVE INSTRUCTIONS Heather Castillo MD has scheduled you for your procedure at this surgery center: [facility] Scheduling Office: [phone] --[address] [place] [address]. Please read below carefully for your personalized [...] Procedures: - YOU MUST HAVE A RESPONSIBLE POCKET MAKER TAKE YOU HOME. A TELETRAY OPERATOR OR COIL FINISHER CANNOT BE MADE A RESPONSIBLE POCKET MAKER. - We recommend that a responsible person [...] call the Saturday before. Your surgeon s solar lab technician will tell you what time to call the office. - If you have not reached the departmental solar lab technician by 5 P.M., call [phone] after 5 P.M. the day before your surgery. Please be aware that emergency situations arise, which may delay or change your surgical time. If this happens, we will notify you as soon as possible and regret any inconvenience. If you already have an Advance Directive, please fax a copy to [phone] or email to for it to be [...] chart that day. documented in this encounter 07-24-2023 Miscellaneous Notes Received call back from patient's fabric awning repairer. Recommend holding methotrexate 07/28 and resuming 08/04. Patient notified. Leatha York RN July 24, 2023 9:25 AM documented in this encounter 07-23-2023 Note [facility] 07-23-2023 Note [facility] 07-23-2023 Note [facility] 07-23-2023 Note [facility] 07-23-2023 Note [facility] 07-23-2023 Nurse Note Reviewed and confirmed with patient that there were no changes in the the nursing assessment and vitals that were completed on 07/23/2023 during previous provider appointment. Clarissa Tang LPN documented in this encounter 07-23-2023 History of Present illness Narrative Radiation Oncology - New Patient/Consult Note PATIENT NAME: Minal Caputo PATIENT REQUESTING PROVIDER: Heather Castillo MD DIAGNOSIS: 67 year old female with infiltrating lobular carcinoma of the Left breast, centrally located, clinical stage T2N0, ER-positive (80%), MA-positive (5%), and Her2/akash not amplified, s/p biopsy. [...] FINAL DIAGNOSIS A. Breast, left, core biopsy ([id number]; 06/19/2023): ---Invasive lobular carcinoma, preliminary Angela grade 1 (of 3), measuring at least 4.5 mm in greatest dimension. ---Please see comment. ER: POSITIVE (80%, strong) MA: POSITIVE (5%, moderate) HER2 IHC: NEGATIVE (0) [...] 68 Difficulty with anesthesia No Family History JOB LITHOGRAPHER HISTORY: OB History T1 L0 SAB0 IAB0 [...] 5 - High cc: Rita Amanda MD ([facility]) [address] [place] [address] Heather KitchenLynda [address] [facility] [id number] documented in this encounter 07-23-2023 Note [facility] 07-23-2023 History of Present illness Narrative [...] 2023 11:48 AM documented in this encounter 07-17-2023 Miscellaneous Notes Addended by: LEATHA YORK on: 07/17/2023 12:12 PM Modules accepted: Orders documented in this encounter 07-12-2023 Miscellaneous Notes July 12, 2023 Message sent to [employer], patient is interested in having done. Milton Mcintosh RN July 12, 2023 Requested imaging/path slides from: left detailed message requesting a callback for imaging [facility] [address] [place] [address] Pathology Request date: July 12, 2023 FEDEX#: [id number] breast imaging requested [facility] [address] [place] [address] July 12, 2023 Spoke with orlando Lynn via telephone and obtained the following information pertinent to upcoming appointment. Diagnosis: Final Pathologic Diagnosis Left breast core biopsy: INVASIVE MAMMARY CARCINOMA. Histologic Angela grade 2 (tubule formation 3, nuclear pleomorphism 2, mitotic activity 1; total score 6/9). See comments. Date of Diagnosis: 06/19/23 Institution/Location of Diagnosis: [facility] [address] [place] [address] Referring Physician: Rita Amanda MD Breast MRI: [...] Cough: no Swelling in leg(s): no Ashkenazi Sabianist Decent? No History of genetic testing? No genetic testing done, patient is interested Message was sent to Jesus Otoole to add patient for an appointment. Notes/Comments: Milton Mcintosh RN July 12, 2023 documented in this encounter 02-08-2023 Miscellaneous Notes Greetings, Dr. Son reached out to Dr. Crow Sousa. He used to be with us as a total joint replacement doctor and moved his practice over to [facility]. He is willing to see you and do evaluation. His office number is [phone]. His office address is [place] [id number]. He does also go to a office on [address] in [place] just confirm with them what office you will be at. Let us know if there is anything else we can help you with. Stay safe and well. Thank you Leslie with Dr. Son documented in this encounter 02-07-2023 Note [facility] 02-05-2023 Note [facility] 01-30-2023 History and physical note Patient notes a recent ED visit. Her heart rate has been ranging from 23-127 bpm. She has been trying to get in to cardiology but was told there were no appointments until July 2023. 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 She is aware of the appointment. Message sent to [facility] schedulers to cancel virtual [facility] appointment and reschedule to an in-person appointment. Patient also provided schedulers number. Thank you, Elida Craft PA-C [facility] documented in this encounter 01-30-2023 Miscellaneous Notes Rigoberto, Please cancel her virtual [facility] appointment and reschedule her for an in-person [facility] visit due to her significant heart rate variations of 23-127 bpm. I have helped secure her a cardiology appointment prior to her procedure. DOS: 02/11/2023 Thank you, Elida Craft PA-C [facility] documented in this encounter 12-07-2022 Evaluation note Encounter Date Diagnosis Assessment Notes Nov, Bronchitis (ICD-10 - J40) Acute bronchitis material was printed Drink plenty fluids, get plenty of rest. Take the doxycycline as prescribed until gone. Continue home medications as prescribed. Follow-up with your family physician if no improvement in 2 to 3 days. Go to the ER for worsening symptoms or concerns. [employer] [facility] 04-10-2023 Evaluation note* Encounter Date Diagnosis [...] treatment plan. Patient left in stable condition. [employer] [facility] 01-25-2023 Instructions* Patient Instructions* Nell Trujillo APRN.DIETARY SERVICES DIRECTOR - 09/19/2022 7:13 AM EST Images from the original note were not included. Thank you for seeing me in clinic today. As we discussed, my recommendations are as follows: 1.EGD 2.Colonoscopy 3.Continue Nexium If you have any questions about the above treatment plan, please do not hesitate to call the officeor send me a [employer] message. Bowel Preparation Instructions for: Golytely, Nulytely, [...] If you do not have a responsible oil transport driver (family member or friend) with you [...] your exam. 2 07/2019 documented in this encounter01-25-2023 History and physical note * Nell Trujillo [...] mg daily. Her last endoscopy was in 2015 and revealed a 3 cm hiatal hernia. [...] CRC screening. Her last colonoscopy was in 2015 and revealed hemorrhoids and benign polyps. She [...] Abs Lymph 1.00 - 4.00 k/uL 3.81 [place]% % 7.9 Abs [place] <0.87 k/uL 0.68 [place]% % 2.4 Abs [...] daily I spent more than 30 minutes aqqb-ht-mvgb with the patient and over half the time was devoted to counseling and/or coordination of care. This note was dictated using Server[employer]ilot speech recognition software and may contain some errors that were a result of the program not accurately transcribing what was dictated. Nell Trujillo APRN.CNP documented in this encounter01-12-2023 History of Present illness Narrative* Micah Son DO - 09/06/2022 3:10 PM ESTAssociated Order(s): Large Joint Arthro/Inj: L hip joint Post-Procedure Diagnose(s): Primary osteoarthritis of left hip Patient presents for a left hip injection. Large Joint Arthro/Inj: L hip joint Informed Consent Consent Obtained: Verbal [place] Protocol A moment to CARE was completed. [...] Micah Son DO 09/06/2022 documented in this encounter10-23-2022 Evaluation note* Encounter Date Diagnosis Assessment Notes Treatment Notes Treatment Clinical Notes May, Cough (ICD-10 - R05.9) May, COVID-19 (ICD-10 - U07.1) Today you tested positive for the COVID virus. This mean you need to follow all CDC quarantine guidelines found at [email or web address] v. It is important to rest, increase [...] weeks for the cough to go away [employer] Other 08-09-2022 History of Present illness Narrative* [...] Procedure Laterality Date , CLASSIC, IN-HOSP CARE 1981 CURETTAGE PAST SURGICAL HISTORY OF 1986 spinal [...] infection or early failure. [place] [address] History of Present illness Narrative* Kristin Franz [...] Not applicable SIGNED BY: Kristin Franz RDMS, RVT March 29, 2022 4:31 PM documented in this encounter08-01-2022 Miscellaneous Notes* Telephone Encounter - Nikko Brown - 03/26/2022 12:00 PM EDT Physical therapy order sent to [facility] via fax. documented in this encounter07-29-2022 History of Present illness Narrative* Nayan Yan DO - 03/23/2022 3:42 PM EDT SERVICE DATE: [...] 2022 TIME: 3:48 PM documented in this encounter07-25-2022 Instructions* Patient Instructions* Alberto Monsalve DO - 03/19/2022 4:28 PM EDT Do not take Naproxen or other NSAIDs while taking the oral steroid Medrol dose pack. Call [phone] to schedule appointment with Spine Surgery. documented in this encounter07-25-2022 History of Present illness Narrative* Alberto Monsalve DO - 03/19/2022 3:37 PM EDT Images from the original note were not included. [facility] [place] [facility] Medical [...] in local hospital 03/13/22 and transferred to [facility] on 03/14/22. Since then the right arm [...] L4-5 laminectomy and PSF -Thoracic scoliosis surgery 1990s Previously treated by: -Neurology Dr. Salmon while hospitalized February 2022. -Spine Surgery Dr. Baker. PMH: Scoliosis CTS right hand, wears resting splint at night A-fib HTN, HLD COPD h/o cancer: denies PSH: BL TKA 03/31/18 Dr. 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 3/5 right hand power transmission engineer strength, 5/5 on the left Salesperson [employer] strength significantly weaker on right compare to le 5/5 bilateral shoulder abduction, elbow flexion, elbow extension, wrist extension, wrist flexion, digit abduction, power transmission engineer strength. SENSORY: sensation intact to light touch [...] which included preparing to see the patient, [id number] patient care, completing clinical documentation, obtaining and/or reviewing separately obtained history, performing a medically appropriate examination, counseling and educating the pat ient/family/caregiver, ordering medications, tests, or procedures, independently interpreting results (not separately reported), and communicating results to the patient/family/caregiver. SIGNATURE: Alberto Monsalve DO PATIENT NAME: Minal Caputo DATE: March 19, 2022 TIME: 3:37 PM documented in this encounter07-20-2022 History of Past illness Narrative* Problem Noted Date Resolved Date Hypertensive urgency 03/14/2022 03/15/2022 AF (paroxysmal atrial fibrillation) 12/08/2021 03/14/2022 documented as of this encounter (statuses as of 03/15/2022) 07-20-2022 History of Past illness Narrative* Problem Noted Date Resolved Date Hypertensive urgency 03/14/2022 03/15/2022 AF (paroxysmal atrial fibrillation) 12/08/2021 03/14/2022 documented as of this encounter (statuses as of 03/23/2022) 07-20-2022 History of Past illness Narrative* Problem Noted Date Resolved Date Hypertensive urgency 03/14/2022 03/15/2022 AF (paroxysmal atrial fibrillation) 12/08/2021 03/14/2022 documented as of this encounter (statuses as of 03/23/2022) 07-20-2022 History of Past illness Narrative* Problem Noted Date Resolved Date Hypertensive urgency 03/14/2022 03/15/2022 AF (paroxysmal atrial fibrillation) 12/08/2021 03/14/2022 documented as of this encounter (statuses as of 03/26/2022) 07-20-2022 History of Past illness Narrative* Problem Noted Date Resolved Date Hypertensive urgency 03/14/2022 03/15/2022 AF (paroxysmal atrial fibrillation) 12/08/2021 03/14/2022 documented as of this encounter (statuses as of 03/30/2022) 07-20-2022 History of Past illness Narrative* Problem Noted Date Resolved Date Hypertensive urgency 03/14/2022 03/15/2022 AF (paroxysmal atrial fibrillation) 12/08/2021 03/14/2022 documented as of this encounter (statuses as of 04/03/2022) [address]20-2022 History of Past illness Narrative* Problem Noted Date Resolved Date Hypertensive urgency 03/14/2022 03/15/2022 AF (paroxysmal atrial fibrillation) 12/08/2021 03/14/2022 documented as of this encounter (statuses as of 04/03/2022) [address]20-2022 History of Past illness Narrative* Problem Noted Date Resolved Date Hypertensive urgency 03/14/2022 03/15/2022 AF (paroxysmal atrial fibrillation) 12/08/2021 03/14/2022 documented as of this encounter (statuses as of 04/05/2022) [address]20-2022 History of Past illness Narrative* Problem Noted Date Resolved Date Hypertensive urgency 03/14/2022 03/15/2022 AF (paroxysmal atrial fibrillation) 12/08/2021 03/14/2022 documented as of this encounter (statuses as of 09/06/2022) [address]20-2022 History of Past illness Narrative* Problem Noted Date Resolved Date Hypertensive urgency 03/14/2022 03/15/2022 AF (paroxysmal atrial fibrillation) 12/08/2021 03/14/2022 documented as of this encounter (statuses as of 09/19/2022) [address]20-2022 History of Past illness Narrative* Problem Noted Date Resolved Date Hypertensive urgency 03/14/2022 03/15/2022 AF (paroxysmal atrial fibrillation) 12/08/2021 03/14/2022 documented as of this encounter (statuses as of 01/30/2023) [address]20-2022 History of Past illness Narrative* Problem Noted Date Resolved Date Hypertensive urgency 03/14/2022 03/15/2022 AF (paroxysmal atrial fibrillation) 12/08/2021 03/14/2022 documented as of this encounter (statuses as of 01/30/2023) [address]20-2022 History of Past illness Narrative* Problem [...] of this encounter (statuses as of 02/08/2023) 07-20-2022 History of Past illness Narrative* Problem Noted [...] of this encounter (statuses as of 07/12/2023) 07-20-2022 History of Past illness Narrative* Problem Noted [...] of this encounter (statuses as of 07/17/2023) 07-20-2022 History of Past illness Narrative* Problem Noted [...] of this encounter (statuses as of 07/24/2023) [address]20-2022 History of Past illness Narrative* Problem [...] of this encounter (statuses as of 07/24/2023) 07-20-2022 History of Past illness Narrative* Problem Noted [...] of this encounter (statuses as of 07/24/2023) 07-20-2022 History of Past illness Narrative* Problem Noted [...] of this encounter (statuses as of 07/26/2023) [address]20-2022 History of Past illness Narrative* Problem [...] of this encounter (statuses as of 07/30/2023) [address]20-2022 History of Past illness Narrative* Problem [...] of this encounter (statuses as of 08/07/2023) [address]20-2022 History of Past illness Narrative* Problem [...] of this encounter (statuses as of 08/09/2023) [address]20-2022 History of Past illness Narrative* Problem [...] of this encounter (statuses as of 09/26/2023) [address]20-2022 History of Past illness Narrative* Problem [...] of this encounter (statuses as of 09/27/2023) 07-20-2022 History of Past illness Narrative* Problem Noted [...] of this encounter (statuses as of 10/08/2023) [address]20-2022 History of Past illness Narrative* Problem [...] of this encounter (statuses as of 10/10/2023) [address]20-2022 History of Past illness Narrative* Problem [...] of this encounter (statuses as of 10/14/2023) [address]20-2022 History of Past illness Narrative* Problem [...] of this encounter (statuses as of 10/22/2023) [address]20-2022 History of Past illness Narrative* Problem [...] of this encounter (statuses as of 10/22/2023) [address]20-2022 History of Past illness Narrative* Problem [...] of this encounter (statuses as of 10/23/2023) [address]20-2022 History of Past illness Narrative* Problem [...] of this encounter (statuses as of 10/23/2023) [address]20-2022 History of Past illness Narrative* Problem [...] of this encounter (statuses as of 10/23/2023) [address]20-2022 History of Past illness Narrative* Problem [...] of this encounter (statuses as of 10/24/2023) [address]20-2022 History of Past illness Narrative* Problem [...] of this encounter (statuses as of 10/24/2023) 07-20-2022 History of Past illness Narrative* Problem Noted [...] of this encounter (statuses as of 10/24/2023) 07-20-2022 History of Past illness Narrative* Problem Noted [...] of this encounter (statuses as of 10/24/2023) [address]20-2022 History of Past illness Narrative* Problem [...] of this encounter (statuses as of 11/05/2023) [address]20-2022 History of Past illness Narrative* Problem [...] of this encounter (statuses as of 11/05/2023) [address]20-2022 History of Past illness Narrative* Problem [...] of this encounter (statuses as of 11/06/2023) [address]20-2022 History of Past illness Narrative* Problem [...] of this encounter (statuses as of 11/06/2023) [address]20-2022 History of Past illness Narrative* Problem [...] of this encounter (statuses as of 11/11/2023) [address]20-2022 History of Past illness Narrative* Problem [...] of this encounter (statuses as of 11/12/2023) [address]20-2022 History of Past illness Narrative* Problem [...] of this encounter (statuses as of 11/12/2023) 07-20-2022 History of Past illness Narrative* Problem Noted [...] of this encounter (statuses as of 11/12/2023) 04-26-2022 History of Present illness Narrative* Micah Son, [...] Correspondence will be shared today via the [employer] electronic health record or through regular mail, [...] hip joint Informed Consent Consent Obtained: Verbal [place] Protocol A moment to CARE was completed. [...] Plan of Care Visit completed when applicable iMcah Son DO documented in this encounter04-25-2022 Miscellaneous Notes* Telephone Encounter - Kristin Berry [...] Bandages [Other], and Sulfa (Sulfonamide Antibiotics) (home) [phone] (cell) Reason for call: patient checking to see if provider received disk with images from [facility] in [facility]. Please call to discuss if hip injections would be beneficial. Has appointment for injection this coming Tuesday 12/19 and wants to know if she should keep this appointment. Patient last appointment: Visit date not found The patients preferred pharmacy has been captured for this encounter? no Jaye Sauer documented in this encounter04-15-2022 History of Present illness Narrative* Janine Canales - 12/08/2021 9:36 AM EDT EVENT MONITOR DISPOSABLE PATCH INSTRUCTIONS Patient Name: Minal Caputo Clinic Number: [id number] Skin prepped and cleansed with alcohol Patch secured to prepped area Monitor Activated Serial #: [id number] Patient Instructed: 1.) Prescribed order timeframe 2.) Bathing guidelines 3.) Usage of event button and diary documentation 4.) Return of monitor at the end of prescribed order 5.) Call with problems [phone] or [phone] ext. [phone] Patient expresses a good understanding of instructions Janine Canales documented in this encounter04-15-2022 History of Present illness Narrative* John Dc MD - 12/08/2021 8:15 AM EDT Images from the original note were not included. [facility] [place] Department of Cardiovascular Medicine SECTION OF CARDIAC PACING and ELECTROPHYSIOLOGY OUTPATIENT VISIT DATE December 08, 2021 OUTPATIENT VISIT TYPE NEW PRIMARY CARE PHYSICIAN: Rita Amanda MD (Dr) [address] [place] [address] REFERRING PHYSICIAN: SELF CHIEF COMPLAINT: Self referral [...] Excessive sweating-No, Frequent urination-No, Frequent thirst-No. Leo Ballard RN PHYSICAL EXAMINATION: [facility] 08/26/2006 (Approximate) Physical Exam Constitutional: General: She [...] INFORMATION: John Dc MD documented in this encounter11-12-2021 Evaluation note* Encounter Date Diagnosis Assessment Notes [...] Patient care instructions given in writting by [facility] Care At Home document. [employer] Other 11-05-2021 NoteAdmission Information Admitting Physician - Terrell CASTELLON MD Consulting Physician - Judy Pierre MD Admitting Diagnoses: obstructing kidney stone Hospital Course Significant Findings 65-year-old white female past medical history of obesity, COPD, hypertension, GERD and nephrolithiasis who was admitted as direct admission for possible A. fib. Patient was scheduled to have cystoscopy and possible stent for obstructing kidney stone. EKG read as having A. fib so she was directed [facility] for admission. Patient in the EKG [...] EFREN AMANDA Within 5 to [address] [address]- [facility] (1) Additional Instructions: Patient Education Kidney Stones, [id number] [1] Admission H & P; Terrell CASTELLON MD 06/28/2021 16:34 EDTFFostoria City HospitalComment on above:Result Comment: Electronically Signed By: Terrell CASTELLON MD\.br\Date and Time Signed: 06/30/21 14:[id number] NoteBasic Information Admit Date/Time:06/28/2021 16:05 Chief Complaint aFIB History of Present Illness 65-year-old white female past medical history of obesity, COPD, hypertension, GERD and nephrolithiasis who was admitted as direct admission for possible A. fib. Patient was scheduled to have cystoscopy and possible stent for obstructing kidney stone. EKG read as having A. fib so she was directed [facility] for admission. Patient in the EKG [...] 16:27:00 EDT,06/28/21 16:27:00 ED (more content not included)...[facility]Result Comment: Electronically Signed By: BIJU HATHAWAY, Terrell\.br\Date and Time Signed: 06/28/21 16:[id number] Note [id number]:127[facility] Evaluation [facility]* Diagnosis AF (paroxysmal atrial fibrillation) (HCC)- Primary Atrial fibrillation documented in this encounter [facility]* Diagnosis Paroxysmal atrial fibrillation (HCC)- Primary Atrial fibrillation [facility] Diagnosis Primary osteoarthritis of left hip- Primary Primary localized osteoarthrosis, pelvic region and thigh [facility] this encounter [facility]* Diagnosis Right arm weakness- Primary Other musculoskeletal symptoms referable to limbs documented in this encounter [facility]* Diagnosis Neck pain- Primary Cervicalgia documented in this encounter [facility]* Diagnosis Primary osteoarthritis of left hip- Primary Primary localized osteoarthrosis, pelvic region and thigh documented in this encounter [facility]* Diagnosis Thyroid nodule Nontoxic uninodular goiter documented in this encounter [facility]* Diagnosis Thyroid nodule- Primary Nontoxic uninodular goiter [facility] BMI 50.0-59.9, adult (HCC)- Primary Body Mass Index 50.0-59.9, adult Primary osteoarthritis of left hip Primary localized osteoarthrosis, pelvic region and thigh Type 2 diabetes mellitus with hyperglycemia, unspecified whether retirement insulin use (HCC) documented in this encounter Evaluation note* Diagnosis Cervical disc disorder with radiculopathy- Primary Brachial neuritis or radiculitis nos Weakness of right upper extremity Other musculoskeletal symptoms referable to limbs [facility] this [facility] noteNo [facility] information [facility] Work Phone: Evaluation note* Diagnosis Primary osteoarthritis of left hip- Primary Primary localized osteoarthrosis, pelvic region and thigh [facility]* Diagnosis Gastroesophageal reflux disease, unspecified whether esophagitis present- Primary Screening for colon cancer Special screening for malignant neoplasms, colon Hiatal hernia Diaphragmatic hernia without mention of obstruction or gangrene [facility]* Diagnosis Onset Date Resolution Status Multiple thyroid nodules acu te [facility] Work Phone: Evaluation note* Diagnosis Malignant neoplasm of left female breast, unspecified estrogen receptor status, unspecified site of breast (HCC)- Primary documented in this encounter Evaluation note* Diagnosis Malignant neoplasm of left female breast, unspecified estrogen receptor status, unspecified site of breast (HCC) Invasive lobular carcinoma of breast in female (HCC) documented in this encounter [facility]* Diagnosis Invasive lobular carcinoma of breast in female (HCC)- Primary Invasive lobular carcinoma of breast in female (HCC) [facility]* Diagnosis Preop examination- Primary Preoperative [...] in female (HCC) [facility] Invasive lobular carcinoma of breast in female (HCC) Malignant neoplasm of left breast in female, estrogen receptor positive, unspecified site of breast (HCC) Pre-op testing Preoperative examination, unspecified [facility]* Diagnosis Invasive lobular carcinoma of breast in female (HCC)- Primary [facility]* Diagnosis 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)- Primary S/P left mastectomy Acquired absence of breast and nipple Invasive lobular carcinoma of breast in female (HCC) [facility]* Diagnosis Preoperative clearance- Primary Preoperative examination, [...] in female (HCC) documented in this encounter Evaluation note* Diagnosis Right non-suppurative otitis media- Primary Nonsuppurative otitis media, not specified as acute or chronic Acute recurrent sinusitis, unspecified location Acute rhinitis Acute nasopharyngitis (common cold) [facility] Diagnosis Invasive lobular carcinoma of breast in female (HCC) [facility] Diagnosis Invasive lobular carcinoma of breast in female (HCC)- Primary [facility] Diagnosis Invasive lobular carcinoma of breast in female (HCC) [facility]* Diagnosis Invasive lobular carcinoma of breast in female (HCC)- Primary [facility] Diagnosis Invasive lobular carcinoma of breast in female (HCC)- Primary [facility]* Diagnosis Invasive lobular carcinoma of breast in female (HCC)- Primary Post-operative state Other postprocedural status [facility]* Diagnosis ASCVD (arteriosclerotic cardiovascular disease) Unspecified cardiovascular disease [facility]* Diagnosis Invasive lobular carcinoma of breast in female (HCC)- Primary [facility]* Diagnosis Invasive lobular carcinoma of breast in female (HCC) documented in this encounter [facility]* Diagnosis Invasive lobular carcinoma of breast in female (HCC)- Primary [facility] encounter [facility]* Diagnosis 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 (CMS-HCC)- Primary [facility] this encounter [facility]* Diagnosis Chest pain, unspecified type- Primary Invasive lobular carcinoma of breast in female (HCC) Generalized edema Edema documented in this encounter [facility] general Narrative - Reported* Type Description Date Medical History acid reflux Medical History Hypertension Medical History hypercholesterolemia Medical History Scoliosis Surgical History back surgery x2 Surgical History C section Surgical History kidney stone Surgical History knee replacement bilateral Hospitalization History see above [employer] Other InstructionsNot on filedocumented in this encounter [facility] filedocumented in [facility] encounter [facility] on filedocumented in this encounter [facility]Not on filedocumented in this encounter [facility] on filedocumented in this [facility] SystemInstructionsNot on filedocumented in this encounter [facility] Outpatient Procedure (Routine) - Pending Review Specialty Diagnoses / Procedures Referred By Binu fontanez Referred To [facility] Diagnoses AF (paroxysmal atrial fibrillation) (HCC) Procedures ECHO ECHO TTHRC R-T 2D W/WOM-MODE COMPL SPEC&COLR D John Dc MD [address] [place] [address] Formerly Named [facility] Vascular [address] [address] Referral ID Status Reason Start Date Expiration Date Visits Requested Visits Authorized [id number] Pending Review Auto-Generat ed Referral 12/08/2021 12/08/2022 1 1 [facility] Diagnostic Procedure Only (Routine) - Closed Specialty Diagnoses / Procedures Referred By Binu fontanez Referred To Contact [facility] Diagnoses Thyroid nodule Procedures US THYROID/PARATHYROID US SOFT TISSUE HEAD & NECK REAL TIME IMGE Lopez Servin DO [address] [place] [address] Us Imaging Referral ID Status Reason Start Date Expiration Date V isits Requested Visits Authorized [id number] Closed Auto-Generate d Referral 03/15/2022 04/14/2023 1 1 [facility] for referral (narrative)* Outpatient Procedure (Routine) - Authorized Specialty Diagnoses / Procedures [facility] Referred To Contact [facility] [place] Diagnoses Gastroesophageal reflux disease, unspecified whether esophagitis present Hiatal hernia Procedures EGD DIAGNOSTIC ESOPHAGOGASTRODUODENOSC OPY TRANSORAL DIAGNOSTIC Nell Trujillo APRN.DIETARY SERVICES DIRECTOR [address] [facility] [place] [address] [facility] [address] [place] [id number] Referral ID Status Reason Start Date Expiration Date Visits Requested Visits Authorized [id number] Authorized Auto-Generat ed Referral 09/19/2022 09/19/2023 1 1 * Outpatient Procedure (Routine) - Authorized Specialty Diagnoses / Procedures Referred By Binu t Referred To Contact [facility] [place] Diagnoses Screening for colon cancer Procedures COLONOSCOPY SCREENING COLONOSCOPY FLX DX W/COLLJ SPEC WHEN PFRMD Nell Trujillo APRN.DIETARY SERVICES DIRECTOR [address] [place] [address] [facility] [address] [place] [id number] Referral ID Status Reason Start Date Expiration Date Visits Requested Visits Authorized [id number] Authorized Auto-Generat ed Referral 09/19/2022 09/19/2023 1 1 [facility] for referral (narrative)* Diagnostic Procedure Only (Routine) - Pending Review Specialty Diagnoses / Procedures Referred By Binu t Referred To Contact [facility] Diagnoses Malignant neoplasm of left female breast, unspecified estrogen receptor status, unspecified site of breast (HCC) Procedures US AXILLA ONLY LEFT US LMTD JOINT/OTH NONVASC XTR STRUX R-T W/[place] [address] [place] [address] [facility] [address] [place] [address] Referral ID Status Reason Start Date Expiration Date Visits Requested Visits Authorized [id number] Pending Review Auto-Generat ed Referral 08/15/2024 1 1 [facility] for referral (narrative)* Diagnostic Procedure Only (Routine) - Closed Specialty Diagnoses / Procedures Referred By Binu fontanez Referred To Contact BR IMAGING Diagnoses Malignant neoplasm of left female breast, unspecified estrogen receptor status, unspecified site of breast (HCC) Procedures US AXILLA ONLY LEFT US LMTD JOINT/OTH NONVASC XTR STRUX R-T W/[place] [address] [place] [address] [facility] [address] [place] [address] Referral ID Status Reason Start Date Expiration Date V isits Requested Visits Authorized [id number] Closed Auto-Generate d Referral 07/17/2023 08/15/2024 1 1 [facility] for visit Narrative* Diagnostic Procedure Only (Routine) - Closed Specialty Diagnoses / Procedures Referred By Binu fontanez Referred To Contact US IMAGING Diagnoses Thyroid nodule Procedures US THYROID/PARATHYROID US SOFT TISSUE HEAD & NECK REAL TIME IMGE Lopez Servin DO [address] [place] [address] [facility] Referral ID Status Reason Start Date Expiration Date V isits Requested Visits Authorized [id number] Closed Auto-Generate d Referral 03/15/2022 04/14/2023 1 1 Summary Purpose Family History No Family History Records FoundNo Family History Records FoundNo Family History Records FoundNo Family History Records FoundNo Family History Records FoundNo Family History Records FoundNo Family History Records FoundNo Family History Records FoundNo Family History Records FoundNo Family History Records FoundNo Family History Records Found Advance Directives No Advanced Directives Records FoundDocuments on File Type Date Recorded 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 Awning Repairer Expl anation Advance Directive(s) 12/22/2017 6:24 PM Documents on File Type Date Recorded 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 Awning Repairer Expl anation Advance Directive(s) 12/22/2017 6:24 PM Documents on File Type Date Recorded 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 Awning Repairer Expl anation Advance Directive(s) 03/15/2022 12:45 PM Advance Directive(s) 12/22/2017 6:24 PM Documents on File Type Date Recorded 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 Awning Repairer Expl anation Advance Directive(s) 03/15/2022 12:45 PM Advance Directive(s) 12/22/2017 6:24 PM Advance Directive Response Recorded Date/ Time Advance Directives No January 04 9:04am Advance Directive Response Recorded Date/ Time Advance Directives No June 28, 2022 10:08am Advance Directive Response Recorded Date/ Time Advance Directives No June 28, 2022 11:08am Hospital Course Note HNO ID: [id number] Author: Tam willis (Benoit) Fredrick Service: Orthopaedic Surgery Author Type: Resident [...] Relevant labs included: Hemoglobin (g/dL) Date Value 08 (more content not included)... Assessments No Assessments [...] ONE TIME INJECTION, 1 dose, Starting on Talisha 09/06/22 at 1510, Until Talisha 09/06/22 at 1510 Given 09/06/2022 3:10 PM EST 4 mL Hi p, Left triamcinolone acetonide 40 mg injection (KeNALog 40) 40 mg, Injection - FOR ORTHO USE ONLY, ONE TIME INJECTION, 1 dose, Starting on Talisha 09/06/22 at 1510, Until Talisha 09/06/22 at 1510 Given 09/06/2022 3:10 PM EST 40 mg Hi p, Left Reason for Referral Specialty Diagnoses / Procedures Referred By Binu fontanez Referred To Contact CT IMAGING Diagnoses Chest pain, unspecified type Procedures CT CHEST W IVCON PE DIAGNOSTIC COMPUTED TOMOGRAPHY THORAX W/CONTRAST Brianna Renner, BACK TENDER PAPER MACHINE.[address] [place] [address] Ct Imaging [id number] Referral ID Status Reason Start Date Expiration Date Visits Requested Visits Authorized [id number] Pending Review Auto-Generat ed Referral 11/05/2023 12/04/2024 1 1 Specialty Diagnoses / Procedures Referred By Binu fontanez Referred To Contact Diagnoses Cervical disc disorder with radiculopathy Weakness of right upper extremity Procedures CONSULT TO SPINE SURGERY OFFICE/OUTPATIENT [facility] 60-74 MINUTES Alberto Monsalve, DO [address] [place] [address] Referral ID Status Reason Start Date Expiration Date Visits Requested Visits Authorized [id number] Authorized PCP Requested Referral 03/19/2022 03/19/2023 1 1 Specialty Diagnoses / Procedures Referred By Contac t Referred To Contact Nutrition Diagnoses BMI 50.0-59.9, adult (HCC) Type 2 diabetes mellitus with hyperglycemia, unspecified whether retirement insulin use (HCC) Procedures CONSULT TO NUTRITION THERAPY OFFICE/OUTPATIENT [facility] 60-[place] [address] [place] [address] Referral ID Status Reason Start Date Expiration Date Visits Requested Visits Authorized [id number] Authorized PCP Requested Referral 04/03/2022 04/03/2023 1 1 Specialty Diagnoses / Procedures Referred By Contac t Referred To Contact Endocrinology Diagnoses Thyroid nodule Procedures CONSULT TO ENDOCRINOLOGY OFFICE/OUTPATIENT [facility] 60-74 MINUTES Lopez Salmon DO [address] [place] [address] Referral ID Status Reason Start Date Expiration Date Visits Requested Visits Authorized [id number] Authorized PCP Requested Referral 04/03/2022 04/03/2023 1 1 Specialty Diagnoses / Procedures Referred By Contac t Referred To Contact Orthopedics Diagnoses Primary osteoarthritis of left hip Procedures CONSULT TO ORTHOPAEDICS OFFICE/OUTPATIENT [facility] 60-74 MINUTES Nayan Yan, [facility] [address] [place] [address] Referral ID Status Reason Start Date Expiration Date Visits Requested Visits Authorized [id number] Authorized PCP Requested Referral 03/23/2022 03/23/2023 1 1 Specialty Diagnoses / Procedures Referred By Contac t Referred To Contact XR IMAGING Diagnoses Primary osteoarthritis of left hip Procedures XR HIP GENERAL 3V PELV/AP/LAT LEFT RADEX HIP UNILATERAL WITH PELVIS 2-3 VIEWS Nayan Yan DO [facility] [address] [place] [address] Xr Imaging Referral ID Status Reason Start Date Expiration Date V isits Requested Visits Authorized [id number] Closed Auto-Generate d Referral 03/23/2022 04/22/2023 1 1 Specialty Diagnoses / Procedures Referred By Contac t Referred To Contact [facility] Diagnoses Neck pain Procedures CONSULT TO PHYSICAL THERAPY PHYSICAL THERAPY EVALUATION HIGH COMPLEX 45 MINS Lopez Salmon DO [address] [place] [address] [facility] [place] [phone] Referral ID Status Reason Start Date Expiration Date Visits Requested Visits Authorized [id number] Authorized PCP Requested Referral Auto-Generate d Referral 03/23/2022 03/23/2023 99 99 Specialty Diagnoses / Procedures Referred By Contac t Referred To Contact [facility] Diagnoses Right arm weakness Procedures CONSULT TO HR SPECIALIST OCCUPATIONAL THERAPY EVAL HIGH COMPLEX 60 MINS Lopez Salmon, [address] [place] [address] [place] [phone] Referral ID Status Reason Start Date Expiration Date Visits Requested Visits Authorized [id number] Authorized PCP Requested Referral Auto-Generate d Referral 03/15/2022 03/15/2023 99 99 Specialty Diagnoses / Procedures Referred By Contac t Referred To Contact [facility] Diagnoses Right arm weakness Procedures CONSULT TO PHYSICAL THERAPY PHYSICAL THERAPY EVALUATION HIGH COMPLEX 45 MINS Lopez Salmon, DO [address] [place] [address] [address] Referral ID Status Reason Start Date Expiration Date Visits Requested Visits Authorized [id number] Authorized PCP Requested Referral Auto-Generate d Referral 03/15/2022 03/15/2023 99 99 Chief Complaint and Reason for Visit Chief Complaint R92.8 Chief Complaint R06.00 Chief Complaint R06.00 Dysuria Chief Complaint R30.0 Chief Complaint e04.1 Reason for Visit Multiple thyroid nod ules Additional Source Comments INFORMATION SOURCE (unrecogn ized section and content) DATE CREATED AUTHOR 10/15/2018 [facility] DATE CREATED AUTHOR AUTHOR'S ORGANIZ ATION 08/03/2021 [facility] DATE CREATED AUTHOR AUTHOR'S ORGANIZ ATION 02/10/2022 [facility] dical Specialist DATE CREATED AUTHOR AUTHOR'S ORGANIZ ATION 07/06/2022 [facility] Center DATE CREATED AUTHOR AUTHOR'S ORGANIZ ATION 12/13/2022 [facility] DATE CREATED AUTHOR AUTHOR'S ORGANIZ ATION 03/02/2023 [facility] DATE CREATED AUTHOR AUTHOR'S ORGANIZ ATION 09/23/2023 [facility] DATE CREATED AUTHOR AUTHOR'S ORGANIZ ATION 09/28/2023 [facility] DATE CREATED AUTHOR AUTHOR'S ORGANIZ ATION 11/06/2023 [facility] DATE CREATED AUTHOR AUTHOR'S ORGANIZ ATION 11/13/2023 [facility] DATE CREATED AUTHOR AUTHOR'S ORGANIZ ATION 11/16/2023 [facility] Source Comments (unrecognize d section and content) In the event this informatio n is protected by the Federal Confidentiality of Alcohol and Drug Abuse Patient Records regulations: The Federal rules restrict any use of the information to criminally investigate or prosecute any alcohol or drug abuse patient.In the event this information is protected by the Federal Confidentiality of Alcohol and Drug Abuse Patient Records regulations: The Federal rules restrict any use of the information to criminally investigate or prosecute any alcohol or drug abuse patient.In the event this information is protected by the Federal Confidentiality of Alcohol and Drug Abuse Patient Records regulations: The Federal rules restrict any use of the information to criminally investigate or prosecute any alcohol or drug abuse patient.In the event this information is protected by the Federal Confidentiality of Alcohol and Drug Abuse Patient Records regulations: The Federal rules restrict any use of the information to criminally investigate or prosecute any alcohol or drug abuse patient.In the event this information is protected by the Federal Confidentiality of Alcohol and Drug Abuse Patient Records regulations: The Federal rules restrict any use of the information to criminally investigate or prosecute any alcohol or drug abuse patient.In the event this information is protected by the Federal Confidentiality of Alcohol and Drug Abuse Patient Records regulations: The Federal rules restrict any use of the information to criminally investigate or prosecute any alcohol or drug abuse patient.In the event this information is protected by the Federal Confidentiality of Alcohol and Drug Abuse Patient Records regulations: The Federal rules restrict any use of the information to criminally investigate or prosecute any alcohol or drug abuse patient.In the event this information is protected by the Federal Confidentiality of Alcohol and Drug Abuse Patient Records regulations: The Federal rules restrict any use of the information to criminally investigate or prosecute any alcohol or drug abuse patient.In the event this information is protected by the Federal Confidentiality of Alcohol and Drug Abuse Patient Records regulations: The Federal rules restrict any use of the information to criminally investigate or prosecute any alcohol or drug abuse patient.In the event this information is protected by the Federal Confidentiality of Alcohol and Drug Abuse Patient Records regulations: The Federal rules restrict any use of the information to criminally investigate or prosecute any alcohol or drug abuse patient.In the event this information is protected by the Federal Confidentiality of Alcohol and Drug Abuse Patient Records regulations: The Federal rules restrict any use of the information to criminally investigate or prosecute any alcohol or drug abuse patient.In the event this information is protected by the Federal Confidentiality of Alcohol and Drug Abuse Patient Records regulations: The Federal rules restrict any use of the information to criminally investigate or prosecute any alcohol or drug abuse patient.In the event this information is protected by the Federal Confidentiality of Alcohol and Drug Abuse Patient Records regulations: The Federal rules restrict any use of the information to criminally investigate or prosecute any alcohol or drug abuse patient.In the event this information is protected by the Federal Confidentiality of Alcohol and Drug Abuse Patient Records regulations: The Federal rules restrict any use of the information to criminally investigate or prosecute any alcohol or drug abuse patient.In the event this information is protected by the Federal Confidentiality of Alcohol and Drug Abuse Patient Records regulations: The Federal rules restrict any use of the information to criminally investigate or prosecute any alcohol or drug abuse patient.In the event this information is protected by the Federal Confidentiality of Alcohol and Drug Abuse Patient Records regulations: The Federal rules restrict any use of the information to criminally investigate or prosecute any alcohol or drug abuse patient.In the event this information is protected by the Federal Confidentiality of Alcohol and Drug Abuse Patient Records regulations: The Federal rules restrict any use of the information to criminally investigate or prosecute any alcohol or drug abuse patient.In the event this information is protected by the Federal Confidentiality of Alcohol and Drug Abuse Patient Records regulations: The Federal rules restrict any use of the information to criminally investigate or prosecute any alcohol or drug abuse patient.In the event this information is protected by the Federal Confidentiality of Alcohol and Drug Abuse Patient Records regulations: The Federal rules restrict any use of the information to criminally investigate or prosecute any alcohol or drug abuse patient.In the event this information is protected by the Federal Confidentiality of Alcohol and Drug Abuse Patient Records regulations: The Federal rules restrict any use of the information to criminally investigate or prosecute any alcohol or drug abuse patient.In the event this information is protected by the Federal Confidentiality of Alcohol and Drug Abuse Patient Records regulations: The Federal rules restrict any use of the information to criminally investigate or prosecute any alcohol or drug abuse patient.In the event this information is protected by the Federal Confidentiality of Alcohol and Drug Abuse Patient Records regulations: The Federal rules restrict any use of the information to criminally investigate or prosecute any alcohol or drug abuse patient.In the event this information is protected by the Federal Confidentiality of Alcohol and Drug Abuse Patient Records regulations: The Federal rules restrict any use of the information to criminally investigate or prosecute any alcohol or drug abuse patient.In the event this information is protected by the Federal Confidentiality of Alcohol and Drug Abuse Patient Records regulations: The Federal rules restrict any use of the information to criminally investigate or prosecute any alcohol or drug abuse patient.In the event this information is protected by the Federal Confidentiality of Alcohol and Drug Abuse Patient Records regulations: The Federal rules restrict any use of the information to criminally investigate or prosecute any alcohol or drug abuse patient.In the event this information is protected by the Federal Confidentiality of Alcohol and Drug Abuse Patient Records regulations: The Federal rules restrict any use of the information to criminally investigate or prosecute any alcohol or drug abuse patient.In the event this information is protected by the Federal Confidentiality of Alcohol and Drug Abuse Patient Records regulations: The Federal rules restrict any use of the information to criminally investigate or prosecute any alcohol or drug abuse patient.In the event this information is protected by the Federal Confidentiality of Alcohol and Drug Abuse Patient Records regulations: The Federal rules restrict any use of the information to criminally investigate or prosecute any alcohol or drug abuse patient.In the event this information is protected by the Federal Confidentiality of Alcohol and Drug Abuse Patient Records regulations: The Federal rules restrict any use of the information to criminally investigate or prosecute any alcohol or drug abuse patient.In the event this information is protected by the Federal Confidentiality of Alcohol and Drug Abuse Patient Records regulations: The Federal rules restrict any use of the information to criminally investigate or prosecute any alcohol or drug abuse patient.In the event this information is protected by the Federal Confidentiality of Alcohol and Drug Abuse Patient Records regulations: The Federal rules restrict any use of the information to criminally investigate or prosecute any alcohol or drug abuse patient.In the event this information is protected by the Federal Confidentiality of Alcohol and Drug Abuse Patient Records regulations: The Federal rules restrict any use of the information to criminally investigate or prosecute any alcohol or drug abuse patient.In the event this information is protected by the Federal Confidentiality of Alcohol and Drug Abuse Patient Records regulations: The Federal rules restrict any use of the information to criminally investigate or prosecute any alcohol or drug abuse patient.In the event this information is protected by the Federal Confidentiality of Alcohol and Drug Abuse Patient Records regulations: The Federal rules restrict any use of the information to criminally investigate or prosecute any alcohol or drug abuse patient.In the event this information is protected by the Federal Confidentiality of Alcohol and Drug Abuse Patient Records regulations: The Federal rules restrict any use of the information to criminally investigate or prosecute any alcohol or drug abuse patient.In the event this information is protected by the Federal Confidentiality of Alcohol and Drug Abuse Patient Records regulations: The Federal rules restrict any use of the information to criminally investigate or prosecute any alcohol or drug abuse patient.In the event this information is protected by the Federal Confidentiality of Alcohol and Drug Abuse Patient Records regulations: The Federal rules restrict any use of the information to criminally investigate or prosecute any alcohol or drug abuse patient.In the event this information is protected by the Federal Confidentiality of Alcohol and Drug Abuse Patient Records regulations: The Federal rules restrict any use of the information to criminally investigate or prosecute any alcohol or drug abuse patient.In the event this information is protected by the Federal Confidentiality of Alcohol and Drug Abuse Patient Records regulations: The Federal rules restrict any use of the information to criminally investigate or prosecute any alcohol or drug abuse patient.In the event this information is protected by the Federal Confidentiality of Alcohol and Drug Abuse Patient Records regulations: The Federal rules restrict any use of the information to criminally investigate or prosecute any alcohol or drug abuse patient.In the event this information is protected by the Federal Confidentiality of Alcohol and Drug Abuse Patient Records regulations: The Federal rules restrict any use of the information to criminally investigate or prosecute any alcohol or drug abuse patient.In the event this information is protected by the Federal Confidentiality of Alcohol and Drug Abuse Patient Records regulations: The Federal rules restrict any use of the information to criminally investigate or prosecute any alcohol or drug abuse patient.In the event this information is protected by the Federal Confidentiality of Alcohol and Drug Abuse Patient Records regulations: The Federal rules restrict any use of the information to criminally investigate or prosecute any alcohol or drug abuse patient.In the event this information is protected by the Federal Confidentiality of Alcohol and Drug Abuse Patient Records regulations: The Federal rules restrict any use of the information to criminally investigate or prosecute any alcohol or drug abuse patient.In the event this information is protected by the Federal Confidentiality of Alcohol and Drug Abuse Patient Records regulations: The Federal rules restrict any use of the information to criminally investigate or prosecute any alcohol or drug abuse patient.In the event this information is protected by the Federal Confidentiality of Alcohol and Drug Abuse Patient Records regulations: The Federal rules restrict any use of the information to criminally investigate or prosecute any alcohol or drug abuse patient.In the event this information is protected by the Federal Confidentiality of Alcohol and Drug Abuse Patient Records regulations: The Federal rules restrict any use of the information to criminally investigate or prosecute any alcohol or drug abuse patient.In the event this information is protected by the Federal Confidentiality of Alcohol and Drug Abuse Patient Records regulations: The Federal rules restrict any use of the information to criminally investigate or prosecute any alcohol or drug abuse patient. Care Teams (unrecognized sec tion and content) Team Status: Active Member Role Status Dates Janet Dillard DO Primary Care Provider Active Team Status: Inactive Member Role Status Dates Jante G Gilma , DO Primary Care Provider Active Nikko Astorga , DO Attending Provider Active Team Status: Inactive Member Role Status Dates DEEPA Ann Attending Provider Active Team Status: Inactive Member Role Status Dates Janet Dillard , DO Primary Care Provider Active Kaylene Lilly , DO Attending Provider Active Line Runner Relationship Specialty Start Date End Date Rita Amanda PCP - General 01/28/07 Janet Dillard, DO [address] [place] [address] Referring Family Practice 07/14/21 Line Runner Relationship Specialty Start Date End Date Rita Amanda PCP - General 01/28/07 Janet Dillard, DO [address] [place] [address] Referring Family Practice 07/14/21 Line Runner Relationship Specialty Start Date End Date Rita Amnada PCP - General 01/28/07 Janet Dillard, DO [address] [place] [address] Referring Family Practice 07/14/21 Line Runner Relationship Specialty Start Date End Date Rita Amanda PCP - General 01/28/07 Janet Dillard, DO [address] [place] [address] Referring Family Practice 07/14/21 Line Runner Relationship Specialty Start Date End Date Rita Amanda PCP - General 01/28/07 Janet Dillard, DO [address] [place] [address] Referring Family Practice 07/14/21 Line Runner Relationship Specialty Start Date End Date Treasure Rita Cha PCP - General 01/28/07 Janet Dillard, DO [address] [facility] [place] [address] Referring Family Practice 07/14/21 Line Runner Relationship Specialty Start Date End Date Rita Amanda PCP - General 01/28/07 Janet Dillard, DO [address] [place] [address] Referring Family Practice 07/14/21 Line Runner Relationship Specialty Start Date End Date Rita Amanda PCP - General 01/28/07 Janet Dillard, DO [address] [place] [address] Referring Family Practice 07/14/21 Line Runner Relationship Specialty Start Date End Date Rita Amanda PCP - General 01/28/07 Janet Dillard, DO [address] [place] [address] Referring Family Practice 07/14/21 Line Runner Relationship Specialty Start Date End Date Rita Amanda PCP - General 01/28/07 Janet Dillard, DO [address] [place] [address] Referring Family Practice 07/14/21 Team Status: Inactive Member Role Status Dates Lorenza Perez , TECHNICAL SERVICES CONSULTANT-C Attending Provider Active Emily Benson , BACK TENDER PAPER MACHINE Referring Provider Active Janet Dillard , Primary Care Provider Active Line Runner Relationship Specialty Start Date End Date Rita Amanda PCP - General 01/28/07 Janet Dillard, DO [address] [place] [address] Referring Family Medicine 07/14/21 Line Runner Relationship Specialty Start Date End Date Rita Amanda PCP - General 01/28/07 Janet Dillard, DO [address] [place] [address] Referring Family Medicine 07/14/21 Team Status: Inactive Member Role Status EDEPA Bowen Attending Provider Active PHYSICIAN NO [facility] Primary Care Provider Active Line Runner Relationship Specialty Start Date End Date Voca Rita Cha PCP - General 01/28/07 Janet Dillard, DO [address] [place] [address] Referring Family Medicine 07/14/21 Line Runner Relationship Specialty Start Date End Date Rita Amanda PCP - General 01/28/07 Janet Dillard, DO [address] [place] [address] Referring Family Medicine 07/14/21 Line Runner Relationship Specialty Start Date End Date Rita Amanda PCP - General 01/28/07 Janet Dillard, DO [address] [place] [address] Referring Family Medicine 07/14/21 Line Runner Relationship Specialty Start Date End Date Rita Amanda PCP - General 01/28/07 Janet Dillard, DO [address] [facility] [place] [address] Referring Family Medicine 07/14/21 Line Runner Relationship Specialty Start Date End Date Rita Amanda PCP - General 01/28/07 Janet Dillard, DO [address] [place] [address] Referring Family Medicine 07/14/21 Line Runner Relationship Specialty Start Date End Date Rita Amanda PCP - General 01/28/07 Janet Dillard, DO [address] [place] [address] Referring Family Medicine 07/14/21 Line Runner Relationship Specialty Start Date End Date Rita Amandad PCP - General 01/28/07 Janet Dillard, DO [address] [facility] [place] [address] Referring Family Medicine 07/14/21 Line Runner Relationship Specialty Start Date End Date Rita Amandad PCP - General 01/28/07 Janet Dillard, DO [address] [facility] [place] [address] Referring Family Medicine 07/14/21 Line Runner Relationship Specialty Start Date End Date Riat Amanda PCP - General 01/28/07 Janet Dillard, DO [address] [facility] [place] [address] Referring Family Medicine 07/14/21 Line Runner Relationship Specialty Start Date End Date Rita Amanda PCP - General 01/28/07 Janet Dillard, DO [address] [place] [place] [address] Referring Family Medicine 07/14/21 Line Runner Relationship Specialty Start Date End Date Rita Amanda PCP - General 01/28/07 Janet Dillard, DO [address] [facility] [place] [address] Referring Family Medicine 07/14/21 Line Runner Relationship Specialty Start Date End Date Sunny Jenkins MD [address] [place] [address] PCP - General Internal Medicine 04/02/23 Line Runner Relationship Specialty Start Date End Date Sunny Jenkins MD [address] [place] [address] PCP - General Internal Medicine 04/02/23 Line Runner Relationship Specialty Start Date End Date Sunny Jenkins MD [address] [place] [address] PCP - General Internal Medicine 08/22/23 Janet Dillard DO [address] [place] [address] Referring Family Medicine 07/14/21 Yvonne Baumann, RN [address] [place] [address] Specialty Electric Refrigerator Servicer Hematology/Oncology 09/23/23 Mitch Garcia MD [address] [place] [address] Physician Hematology/Oncology 09/23/23 Cathy Templeton, PALeonelC [address] [place] [address] Physician Mortgage Or Loan Underwriter Hematology/Oncology 09/23/23 Deepika Garcia LSW Social And Human Services Assistant 09/24/23 Line Runner Relationship Specialty Start Date End Date Sunny Jenkins MD [address] [place] [address] PCP - General Internal Medicine 08/22/23 Janet Dillard, [address] [facility] [place] [address] Referring Family Medicine 07/14/21 Yvonne Baumann, RN [address] [place] [address] Specialty Electric Refrigerator Servicer Hematology/Oncology 09/23/23 Mitch Garcia MD [address] [place] [address] Physician Hematology/Oncology 09/23/23 Cathy Templeton PA-C [address] [place] [address] [place] [address] Physician Mortgage Or Loan Underwriter Hematology/Oncology 09/23/23 Deepika Garcia LSW Social And Human Services Assistant 09/24/23 Line Runner Relationship Specialty Start Date End Date Sunny Jenkins MD [address], [place] [address] PCP - General Internal Medicine 08/22/23 Janet Dillard DO [address] [place], [place] [address] Referring Family Medicine 07/14/21 Yvonne Baumann, RN [address] [facility] [place] [address] Specialty Electric Refrigerator Servicer Hematology/Oncology 09/23/23 Mitch Garcia MD [address] [place] [address] Physician Hematology/Oncology 09/23/23 Cathy Templeton PA-C [address] [place] [address] [place] [address] Physician Mortgage Or Loan Underwriter Hematology/Oncology 09/23/23 Deepika Garcia LSW Social And Human Services Assistant 09/24/23 Line Runner Relationship Specialty Start Date End Date Sunny Jenkins MD [address], [place] [address] PCP - General Internal Medicine 04/02/23 Line Runner Relationship Specialty Start Date End Date Sunny Jenkins MD [address] [place] [address] PCP - General Internal Medicine 08/22/23 Janet Dillard DO [address] [place] [address] Referring Family Medicine 07/14/21 Yvonne Baumann, RN [address] [facility] [place] [address] Specialty Electric Refrigerator Servicer Hematology/Oncology 09/23/23 Mitch Garcia MD [address] [place] [address] [place] [address] Physician Hematology/Oncology 09/23/23 Cathy Templeton, PA-C [address] [place] [address] [place] [address] Physician Mortgage Or Loan Underwriter Hematology/Oncology 09/23/23 Deepika Garcia LSW Social And Human Services Assistant 09/24/[address] [place] [address] [place] [address] Registered Dietitian Nutrition 10/22/23 Line Runner Relationship Specialty Start Date End Date Sunny Jenkins MD [address] [place] [address] PCP - General Internal Medicine 08/22/23 Janet Dillard DO [address] [place], [place] [address] Referring Family Medicine 07/14/21 Yvonne Baumann RN [address] [facility] [place] [address] Specialty Electric Refrigerator Servicer Hematology/Oncology 09/23/23 Mitch Garcia MD [address] [facility] [place] [address] Physician Hematology/Oncology 09/23/23 Cathy Templeton PA-C [address] [facility] [place] [address] Physician Mortgage Or Loan Underwriter Hematology/Oncology 09/23/23 Deepika Garcia, STORE SALES CONSULTANT Social And Human Services Assistant 09/24/[address] [facility] [place] [address] Registered Dietitian Nutrition 10/22/23 Line Runner Relationship Specialty Start Date End Date Sunny Jenkins MD [address] [facility] [place] [address] PCP - General Internal Medicine 08/22/23 Janet Dillard DO [address] [place] [address] Referring Family Medicine 07/14/21 Yvonne Baumann, RN [address] [facility] [place] [address] Specialty Electric Refrigerator Servicer Hematology/Oncology 09/23/23 Mitch Garcia MD [address] [facility] [place] [address] Physician Hematology/Oncology 09/23/23 Cathy Templeton PA-C [address] [facility] [place] [address] Physician Mortgage Or Loan Underwriter Hematology/Oncology 09/23/23 Deepika Garcia, STORE SALES CONSULTANT Social And Human Services Assistant 09/24/[address] [facility] [place] [address] Registered Dietitian Nutrition 10/22/23 Line Runner Relationship Specialty Start Date End Date Sunny Jenkins MD [address] [place] [address] PCP - General Internal Medicine 08/22/23 Janet Dillard DO [address] [place] [address] Referring Family Medicine 07/14/21 Yvonne Baumann, RN [address] [facility] [place] [address] Specialty Electric Refrigerator Servicer Hematology/Oncology 09/23/23 Mitch Garcia MD [address] [place] [address] [place] [address] Physician Hematology/Oncology 09/23/23 Cathy Templeton, PALeonelC [address] [place] [address] [place] [address] Physician Mortgage Or Loan Underwriter Hematology/Oncology 09/23/23 Deepika Garcia LSW Social And Human Services Assistant 09/24/[address] [place] [address] [place] [address] Registered Dietitian Nutrition 10/22/23 Line Runner Relationship Specialty Start Date End Date Sunny Jenkins MD [address] [place] [address] PCP - General Internal Medicine 08/22/23 Janet Dillard DO [address] [place] [address] Referring Family Medicine 07/14/21 Yvonne Baumann RN [address] [facility] [place] [address] Specialty Electric Refrigerator Servicer Hematology/Oncology 09/23/23 Mitch Garcia MD [address] [place] [address] Physician Hematology/Oncology 09/23/23 Cathy Templeton PA-C [address] [place] [address] [place] [address] Physician Mortgage Or Loan Underwriter Hematology/Oncology 09/23/23 Deepika Garcia LSW Social And Human Services Assistant 09/24/[address] [facility] [place] [address] Registered Dietitian Nutrition 10/22/23 Line Runner Relationship Specialty Start Date End Date Sunny Jenkins MD [address] [place] [address] PCP - General Internal Medicine 08/22/23 Janet Dillard DO [address] [place] [address] Referring Family Medicine 07/14/21 Yvonne Baumann RN [address] [facility] [place] [address] Specialty Electric Refrigerator Servicer Hematology/Oncology 09/23/23 Mitch Garcia MD [address] [facility] [place] [address] Physician Hematology/Oncology 09/23/23 Cathy Templeton PA-C [address] [place] [address] [place] [address] Physician Mortgage Or Loan Underwriter Hematology/Oncology 09/23/23 Deepika Garcia LSW Social And Human Services Assistant 09/24/[address] [facility] [place] [address] Registered Dietitian Nutrition 10/22/23 Line Runner Relationship Specialty Start Date End Date Sunny Jenkins MD [address], [place], [place] [address] PCP - General Internal Medicine 08/22/23 Janet Dillard DO [address] [place], [place] [address] Referring Family Medicine 07/14/21 Yvonne Baumann, RN [address] [facility] [address] [place], [place] [address] Specialty Electric Refrigerator Servicer Hematology/Oncology 09/23/23 Mitch Garcia MD [address] [place], [place] [address]ry [facility] [place] [address] Physician Hematology/Oncology 09/23/23 Cathy Templeton, PALeonelC [address] [facility] [place] [address] Physician Mortgage Or Loan Underwriter Hematology/Oncology 09/23/23 Deepika Garcia [facility] Social And Human Services Assistant 09/24/[address] [facility] [place] [address] Registered Dietitian Nutrition 10/22/23 Line Runner Relationship Specialty Start Date End Date Sunny Jenkins MD [address], [place] [id number] PCP - General Internal Medicine 08/22/23 Janet Dillard DO [address] [facility] [place], [place] [address] Referring Family Medicine 07/14/21 Yvonne Baumann, MALORIE [address] [facility] [place] [address] Specialty Electric Refrigerator Servicer Hematology/Oncology 09/23/23 Mitch Garcia MD [address] [place] [address] [place] [address] Physician Hematology/Oncology 09/23/23 Cathy Templeton, PA-C [address] [place] [address] [place] [address] Physician Mortgage Or Loan Underwriter Hematology/Oncology 09/23/23 Deepika Garcia LSW Social And Human Services Assistant 09/24/[address] [place] [address] [place] [address] Registered Dietitian Nutrition 10/22/23 Line Runner Relationship Specialty Start Date End Date Sunny Jenkins MD [address] [place] [address] PCP - General Internal Medicine 04/02/23 Line Runner Relationship Specialty Start Date End Date Sunny Jenkins MD [address] [place] [address] PCP - General Internal Medicine 08/22/23 Janet Dillard DO [address] [facility] [place], [place] [address] Referring Family Medicine 07/14/21 Yvonne Baumann RN [address] [facility] [place] [address] Specialty Electric Refrigerator Servicer Hematology/Oncology 09/23/23 Mitch Garcia MD [address] [facility] [place] [address] Physician Hematology/Oncology 09/23/23 Cathy Templeton PA-C [address] [facility] [place] [address] Physician Mortgage Or Loan Underwriter Hematology/Oncology 09/23/23 Deepika Garcia, STORE SALES CONSULTANT Social And Human Services Assistant 09/24/[address] [place] [address] [place] [address] Registered Dietitian Nutrition 10/22/23 Line Runner Relationship Specialty Start Date End Date Sunny Jenkins MD [address] [facility] [place] [address] PCP - General Internal Medicine 08/22/23 Janet Dillard DO [address] [place] [address] Referring Family Medicine 07/14/21 Yvonne Baumann, RN [address] [facility] [place] [address] Specialty Electric Refrigerator Servicer Hematology/Oncology 09/23/23 Mitch Garcia MD [address] [place] [address] [place] [address] Physician Hematology/Oncology 09/23/23 Cathy Templeton PA-C [address] [facility] [place] [address] Physician Mortgage Or Loan Underwriter Hematology/Oncology 09/23/23 Deepika Garcia, STORE SALES CONSULTANT Social And Human Services Assistant 09/24/[address] [place] [address] [place] [address] Registered Dietitian Nutrition 10/22/23 Line Runner Relationship Specialty Start Date End Date Sunny Jenkins MD [address] [place] [address] PCP - General Internal Medicine 08/22/23 Janet Dillard DO [address] [place], [place] [address] Referring Family Medicine 07/14/21 Yvonne Baumann, RN [address] [facility] [place] [address] Specialty Electric Refrigerator Servicer Hematology/Oncology 09/23/23 Mitch Garcia MD [address] [place] [address] [place] [id number] Physician Hematology/Oncology 09/23/23 Cathy Templeton, PA-C [address] [place] [address] [place] [address] Physician Mortgage Or Loan Underwriter Hematology/Oncology 09/23/23 Deepika Garcia LSW Social And Human Services Assistant 09/24/[address] [place] [address] [place] [address] Registered Dietitian Nutrition 10/22/23 Line Runner Relationship Specialty Start Date End Date Sunny Jenkins MD [address] [place], [place] [id number] PCP - General Internal Medicine 04/02/23 Line Runner Relationship Specialty Start Date End Date Sunny Jenkins MD [address] [place], [place] [address] PCP - General Internal Medicine 04/02/23 Line Runner Relationship Specialty Start Date End Date Sunny Jenkins MD [address] [place] [address] PCP - General Internal Medicine 08/22/23 Janet Dillard DO [address] [place] [address] Referring Family Medicine 07/14/21 Yvonne Baumann, RN [address] [facility] [place] [address] Specialty Electric Refrigerator Servicer Hematology/Oncology 09/23/23 Mitch Garcia MD [address] [place] [address] [place] [address] Physician Hematology/Oncology 09/23/23 Cathy Templeton, JAZZY [address] [place] [address] [place] [address] Physician Mortgage Or Loan Underwriter Hematology/Oncology 09/23/23 Deepika Garcia LSW Social And Human Services Assistant 09/24/[address] [place] [address] [place] [address] Registered Dietitian Nutrition 10/22/23 Line Runner Relationship Specialty Start Date End Date Sunny Jenkins MD [address] [place] [address] PCP - General Internal Medicine 08/22/23 Janet Dillard DO [address] [place] [address] Referring Family Medicine 07/14/21 Yvonne Baumann, RN [address] [place] [address] [place] [address] Specialty Electric Refrigerator Servicer Hematology/Oncology 09/23/23 Mitch Garcia MD [address] [place] [address] [place] [address] Physician Hematology/Oncology 09/23/23 Cathy Templeton, VERNELLC [address] [place] [address] [place] [address] Physician Mortgage Or Loan Underwriter Hematology/Oncology 09/23/23 Deepika Garcia LSW Social And Human Services Assistant 09/24/[address] [place] [address] [place] [address] Registered Dietitian Nutrition 10/22/23 Reason for Visit [...] NEW HIGH MDM 60-74 MINUTES Nayan Yan, [facility] [address] [place] [address] Referral ID Status Reason Start Date Expiration Date V isits Requested Visits Authorized [id number] Closed PCP Requested Referral 03/23/2022 03/23/2023 1 [...] XTR STRUX R-T W/[place] [address] [place] [address] [facility] Imaging [address] [place] [address] Referral ID Status Reason Start Date Expiration Date V isits Requested Visits Authorized [id number] Closed Auto-Generate d Referral 07/17/2023 08/15/2024 1 1 Reason Comments Consult Reason Comments Electric Refrigerator Servicer - Other methotrexate Reason Comments Radiology NM Reason Comments Established Patient Reason Comments Care Coordination appointments Reason Comments Patient Question Reason Comments Sinus Problem Fever Cough Sore Throat Reason Comments Care Coordination Clinical Information Request Reason Comments Care Coordination Treatment reschedule Reason Comments Breast Cancer OTV Reason Comments Nutrition Assessment Specialty Diagnoses / Procedures Referred By Contac t Referred To Contact Diagnoses Invasive lobular carcinoma of breast in female (HCC) Mitch Garcia MD [address] [place] [address] Adolfo Treat [facility] [address] [facility] [place] [address] Referral ID Status Reason Start Date Expiration Date V isits Requested Visits Authorized [id number] Authorized 09/17/2023 12/16/2023 99 99 Reason Comments [...] 1 dose, On Sat10/22/23 at 1030, EXP:_ 01310/23/23 Hazardous Chemotherapy Drug: Use appropriate PPE. New [...] On Sat10/22/23 at 1030, CAUTION: vesicant -- EXP:0910/23/23 Administer total dose over 15 minutes. Hazardous [...] BE BASED ON THE PRIMARY CLINICAL RECORDS. [employer] provides no warranty or guarantee of the accuracy or completeness of information in this document.
--- NOTE | 2023-11-16 08:44 | PC.NURSE ---
ppatient refused tico hose and states she was told not to wear tioc hose due to previous blood clot
[2023-11-16 08:53] LABS: Lactate/Lactic Acid 2.3 mmol/L (0.4-2.0)
[2023-11-16] MEDS: APIXABAN 5 MG TABLET PO ×2 (10:26→21:32)
[2023-11-16] MEDS: OMEPRAZOLE 40 MG CAPSULE.DR PO (10:26)
[2023-11-16 12:08] LABS: Lactate/Lactic Acid 2.4 mmol/L (0.4-2.0)
[2023-11-16] MEDS: ACETAMINOPHEN 325 MG TABLET 650 MG PO ×3 (13:55→23:55)
[2023-11-16] MEDS: LACTATED RINGER'S SOLUTION 1,000 ML 125 ML IV (14:26)
[2023-11-16 15:08] LABS: Lactate/Lactic Acid 2.1 mmol/L (0.4-2.0)
[2023-11-16 15:17] LABS: PROCALCITONIN <0.05 ng/mL (0.00-0.50)
--- NOTE | 2023-11-16 15:44 | PC.NURSE ---
1445 patient temperature recheck is 102.9. ice packs placed under armpits and groin. cold wash cloth applied to forehead. patient only has sheet on at this time. physician notified. no new orders at this time.
[2023-11-16] MEDS: FILGRASTIM 480 MCG/1.6 ML VIAL SUBQ (15:53)
[2023-11-16] MEDS: FOLIC ACID 1 MG TABLET PO (15:56)
[2023-11-16 16:25] LABS: Adenovirus NOT DETECTED (NOT DETECTE); Bordetella parapertussis NOT DETECTED (NOT DETECTE); Coronavirus 229E NOT DETECTED (NOT DETECTE); Coronavirus HKU1 NOT DETECTED (NOT DETECTE); Coronavirus NL63 NOT DETECTED (NOT DETECTE); Coronavirus OC43 NOT DETECTED (NOT DETECTE); Human Metapneumovirus NOT DETECTED (NOT DETECTE); Human Rhinovirus/Enterovirus NOT DETECTED (NOT DETECTE); Influenza A NOT DETECTED (NOT DETECTE); Influenza B NOT DETECTED (NOT DETECTE); Mycoplasma pneumoniae NOT DETECTED (NOT DETECTE); Parainfluenza Virus 1 NOT DETECTED (NOT DETECTE); Parainfluenza Virus 2 NOT DETECTED (NOT DETECTE); Parainfluenza Virus 3 NOT DETECTED (NOT DETECTE); Parainfluenza Virus 4 NOT DETECTED (NOT DETECTE); Respiratory Syncytial Virus NOT DETECTED (NOT DETECTE); SARS-CoV-2 NOT DETECTED (NOT DETECTE)
[2023-11-16 18:08] LABS: Lactate/Lactic Acid 0.9 mmol/L (0.4-2.0)
[2023-11-16] MEDS: VANCOMYCIN HCL 1,000 MG in 0.9 % SODIUM CHLORIDE 250 ML 250 MG IV (18:11)
--- NOTE | 2023-11-16 19:01 | PC.NURSE ---
patient refusing ice packs. patient covered up with only sheet.
[2023-11-16] MEDS: METOPROLOL TARTRATE 50 MG TABLET PO (21:31)
[2023-11-16] MEDS: ATORVASTATIN CALCIUM 40 MG TABLET PO (21:32)
[2023-11-17] VITALS (28 sets, daily range): BP systolic 120–150; BP diastolic 64–73; PULSE 74–92; RESP 16–22; TEMP 36.8–38.8; O2SAT 92–94
[2023-11-17] MEDS: VANCOMYCIN HCL 1,000 MG in 0.9 % SODIUM CHLORIDE 250 ML 250 MG IV ×2 (04:45→17:50)
[2023-11-17 05:25] LABS: Hematocrit 27.9 % (36.0-48.0); Mean Corpuscular HGB Conc 32.3 g/dL (29.9-35.2); Mean Corpuscular Hemoglobin 30.3 pg (26.7-34.0); Mean Corpuscular Volume 93.9 fL (81.0-99.0); Mean Platelet Volume 10.7 fL (9.5-13.5); Platelet Count 147 10^3/uL (150-450); Red Blood Count 2.97 10^6/uL (4.20-5.40); Red Cell Distribution Width 13.8 % (11.0-15.0); White Blood Count 1.6 10^3/uL (4.0-11.0)
[2023-11-17 05:42] LABS: Alanine Aminotransferase 24 U/L (14-59); Albumin Globulin Ratio 0.8; Albumin Level 2.5 g/dL (3.4-5.0); Alkaline Phosphatase 80 U/L (46-116); Anion Gap 13.9; Aspartate Amino Transferase 10 U/L (15-37); BUN Creatinine Ratio 7.9; Bilirubin Total 0.5 mg/dL (0.2-1.0); Carbon Dioxide 25.9 mmol/L (21.0-32.0); Chloride 101 mmol/L (98-107); Estimated GFR (African America >60 (>=60); Estimated GFR (Non-African Ame 54 (>=60); Globulin 3.1 g/dL; Glucose 113 mg/dL (74-106); Potassium 3.8 mmol/L (3.5-5.1); Sodium 137 mmol/L (136-145); Total Protein 5.6 g/dL (6.4-8.2)
[2023-11-17] MEDS: PIPERACILLIN SODIUM/TAZOBACTAM 3.375 GM in 0.9 % SODIUM CHLORIDE 50 ML IV ×3 (05:52→21:55)
[2023-11-17] MEDS: OMEPRAZOLE 40 MG CAPSULE.DR PO (06:06)
[2023-11-17 06:55] LABS: Segmented Neut Absolute Manual 0.12 10^3/uL (1.4-6.5)
[2023-11-17 06:56] LABS: Atypical Lymphocytes Abs Man 0.11; Band Neutrophils Absolute 0.1 10^3/uL (0.0-0.3); Eosinophils Absolute Manual 0.04 10^3/uL (0.00-0.70); Lymphocytes Absolute Manual 0.92 10^3/uL (1.20-3.80); Monocytes Absolute Manual 0.32 10^3/uL (0.30-0.80)
[2023-11-17] MEDS: FUROSEMIDE 20 MG TABLET 40 MG PO (08:39)
[2023-11-17] MEDS: LOSARTAN POTASSIUM 50 MG TABLET PO (08:39)
[2023-11-17] MEDS: SPIRONOLACTONE 25 MG TABLET PO (08:39)
[2023-11-17] MEDS: METOPROLOL TARTRATE 50 MG TABLET PO ×2 (08:39→21:55)
[2023-11-17] MEDS: POTASSIUM CHLORIDE 10 MEQ ER TABLET PO (08:39)
[2023-11-17] MEDS: ACETAMINOPHEN 325 MG TABLET 650 MG PO ×2 (08:39→14:23)
[2023-11-17] MEDS: APIXABAN 5 MG TABLET PO ×2 (08:39→21:55)
[2023-11-17] MEDS: CHOLECALCIFEROL (VITAMIN D3) 125 MCG/5,000 UNIT TABLET PO (08:40)
--- NOTE | 2023-11-17 08:44 | P.PN_ITS ---
Progress Note: Subjective Subjective Interval history: Patient overall feeling better today. Still with fever off and on overnight but improvement this morning. She denies any n/v/d. No current complaints. Did get dose of Neupogen last evening. WBC's up to 1.6 from 1.0 this morning. Exam Narrative Exam Narrative: General: Patient is alert, and oriented to person, place and time with normal affect, proper hygiene Head: atraumatic, acephalic Eyes: PERRLA, no nystagmus present, conjunctiva clear, no scleral icterus Ears: normal gross auditory acuity Heart: Normal rate and rhythm, no murmurs/rubs/gallops Lungs: no audible wheezes, crackles and normal breath sounds all lung harrell Musculoskeletal: 1 + swelling bilateral lower extremities Neuro: CN II-X grossly intact Constitutional Vital Signs, click to edit/add: Last Vital Signs Temp 101.8 F H 11/17/23 08:39 Pulse 92 H 11/17/23 08:00 Resp 22 11/17/23 08:00 BP 149/73 H 11/17/23 08:00 Pulse Ox 92 L 11/17/23 08:00 O2 Del Method Room Air 11/17/23 08:00 Progress Note: Objective Labs Labs: Short CBC 11/17/23 Range/Units 04:35 WBC 1.6 L (4.0-11.0) 10^3/uL Hgb 9.0 L (12.0-16.0) g/dL Hct 27.9 L (36.0-48.0) % Plt Count 147 L (150-450) 10^3/uL BMP 11/17/23 04:35 Sodium 137 Potassium 3.8 Chloride 101 Carbon Dioxide 25.9 BUN 8.0 Creatinine 1.01 Glucose 113 H Calcium 8.0 L Liver Function 11/17/23 Range/Units 04:35 Total Bilirubin 0.5 (0.2-1.0) mg/dL AST 10 L (15-37) U/L ALT 24 (14-59) U/L Alkaline Phosphatase 80 (46-116) U/L Albumin 2.5 L (3.4-5.0) g/dL Progress Note: A&P Assessment and Plan (1) Neutropenic fever: Assessment and Plan: Neupogen daily until WBC's >3, patient placed in neutropenic cautions. Continue Zosyn and vancomycin. awaiting cultures. (2) Sepsis: Assessment and Plan: temp of 102 yesterday, elevated lactate which is now normal range, broad- spectrum antibiotics initiated, started on IV fluids, not given fluid bolus secondary to history of congestive heart failure on recent echocardiogram. Lim cultures pending. acute Respiratory panel negative (3) Urinary tract infection: Assessment and Plan: awaiting urine culture; so far E.coli Qualifiers: Hematuria presence: without hematuria Urinary tract infection type: acute cystitis Qualified Code(s): N30.00 - Acute cystitis without hematuria (4) Pulmonary embolism and infarction: Assessment and Plan: continue eliquis (5) Breast cancer, right: Assessment and Plan: has a port, currently undergoing chemotherapy; will call her oncologist and discuss tomorrow. Qualifiers: Breast location: unspecified site of breast Estrogen receptor status: unspecified Patient sex: female Qualified Code(s): C50.911 - Malignant neoplasm of unspecified site of right female breast (6) Hyperlipemia: Assessment and Plan: continue atorvastatin Qualifiers: Hyperlipidemia type: unspecified Qualified Code(s): E78.5 - Hyperlipidemia, unspecified (7) Obesity: Assessment and Plan: ications Qualifiers: Obesity classification: unspecified obesity classification Obesity type: due to excess calories Serious obesity comorbidity presence: without serious comorbidity Qualified Code(s): E66.09 - Other obesity due to excess calories (8) GERD (gastroesophageal reflux disease): Assessment and Plan: continue home meds Qualifiers: Esophagitis presence: without esophagitis Qualified Code(s): K21.9 - Gastro-esophageal reflux disease without esophagitis (9) HTN (hypertension): Assessment and Plan: continue losartan, metoprolol, aldactone Qualifiers: Hypertension type: primary hypertension Qualified Code(s): I10 - Essential (primary) hypertension Plan continue eliquis patient is a full code
--- NOTE | 2023-11-17 08:49 | PC.NURSE ---
patient temperature 101.8. tylenol given. attempted to remove blankets from patient and admin ice packs to help reduce temperature. patient refused ice packs and to have her blanket removed. pt states give me the tylenol and more blankets so i can sweat it out thats what i do at home. video games storywriter and RN educated patient on potential risks of prolonged increased temperature and encouraged patient to at least remove blanket and keep sheet on if pt doesnt want ice packs. pt states she will get dressed in sweat pants and swet shirt if blanket is removed. notified physician. no new orders at this time.
[2023-11-17] MEDS: METHOTREXATE SODIUM 2.5 MG TABLET 15 MG PO (09:27)
[2023-11-17 13:40] LABS: A. calcoaceticus-baumannii Cpx NOT DETECTED (NOT DETECTE); Bacteroides fragilis NOT DETECTED (NOT DETECTE); Candida albicans NOT DETECTED (NOT DETECTE); Candida auris NOT DETECTED (NOT DETECTE); Candida glabrata NOT DETECTED (NOT DETECTE); Candida krusei NOT DETECTED (NOT DETECTE); Candida parapsilosis NOT DETECTED (NOT DETECTE); Candida tropicalis NOT DETECTED (NOT DETECTE); Cryptococcus neoformans/gattii NOT DETECTED (NOT DETECTE); Enterobacter cloacae complex NOT DETECTED (NOT DETECTE); Enterobacterales NOT DETECTED (NOT DETECTE); Enterococcus faecalis NOT DETECTED (NOT DETECTE); Enterococcus faecium NOT DETECTED (NOT DETECTE); Haemophilus influenzae NOT DETECTED (NOT DETECTE); Klebsiella aerogenes NOT DETECTED (NOT DETECTE); Klebsiella pneumoniae group NOT DETECTED (NOT DETECTE); Listeria monocytogenes NOT DETECTED (NOT DETECTE); Neisseria meningitidis NOT DETECTED (NOT DETECTE); Proteus spp. NOT DETECTED (NOT DETECTE); Pseudomonas aeruginosa NOT DETECTED (NOT DETECTE); Salmonella spp. NOT DETECTED (NOT DETECTE); Serratia marcescens NOT DETECTED (NOT DETECTE); Staphylococcus lugdunensis NOT DETECTED (NOT DETECTE); Stenotrophomonas maltophilia NOT DETECTED (NOT DETECTE); Streptococcus agalactiae NOT DETECTED (NOT DETECTE); Streptococcus pneumoniae NOT DETECTED (NOT DETECTE); Streptococcus pyogenes NOT DETECTED (NOT DETECTE); Streptococcus spp. NOT DETECTED (NOT DETECTE)
[2023-11-17 14:53] LABS: mecA/C DETECTED (NOT DETECTE)
[2023-11-17 14:54] LABS: Source BLOOD; Staphylococcus epidermidis DETECTED (NOT DETECTE); Staphylococcus spp. DETECTED (NOT DETECTE)
[2023-11-17] MEDS: FILGRASTIM 480 MCG/1.6 ML VIAL SUBQ (15:42)
[2023-11-17] MEDS: ATORVASTATIN CALCIUM 40 MG TABLET PO (21:55)
[2023-11-18] VITALS (18 sets, daily range): BP systolic 112–152; BP diastolic 66–75; PULSE 73–94; RESP 16; TEMP 36.5–37.3; O2SAT 91–94
[2023-11-18 04:35] LABS: Basophils Absolute Auto 0.1 10^3/uL (0.0-0.1); Basophils Percent Auto 2.1 % (0.2-2.0); Eosinophils Absolute Auto 0.1 10^3/uL (0.0-0.7); Eosinophils Percent Auto 2.1 % (0.9-7.0); Hematocrit 31.2 % (36.0-48.0); Hemoglobin 10.2 g/dL (12.0-16.0); Immature Granulocytes Abs Auto 0.04 10^3/uL (0.00-0.03); Immature Granulocytes Pct Auto 1.4 % (0.0-0.5); Lymphocytes Absolute Auto 0.7 10^3/uL (1.2-3.8); Lymphocytes Percent Auto 24.6 % (20.5-60.0); Mean Corpuscular HGB Conc 32.7 g/dL (29.9-35.2); Mean Corpuscular Hemoglobin 30.6 pg (26.7-34.0); Mean Corpuscular Volume 93.7 fL (81.0-99.0); Mean Platelet Volume 10.4 fL (9.5-13.5); Monocytes Absolute Auto 0.2 10^3/uL (0.3-0.8); Monocytes Percent Auto 7.8 % (1.7-12.0); Neutrophils Absolute Auto 1.7 10^3/uL (1.4-6.5); Platelet Count 152 10^3/uL (150-450); Red Blood Count 3.33 10^6/uL (4.20-5.40); Red Cell Distribution Width 14.1 % (11.0-15.0); White Blood Count 2.8 10^3/uL (4.0-11.0)
[2023-11-18 04:47] LABS: Alanine Aminotransferase 22 U/L (14-59); Albumin Globulin Ratio 0.8; Albumin Level 2.4 g/dL (3.4-5.0); Alkaline Phosphatase 79 U/L (46-116); Anion Gap 11.5; Aspartate Amino Transferase 12 U/L (15-37); BUN Creatinine Ratio 7.7; Bilirubin Total 0.4 mg/dL (0.2-1.0); Calcium 8.1 mg/dL (8.5-10.1); Carbon Dioxide 28.9 mmol/L (21.0-32.0); Chloride 104 mmol/L (98-107); Estimated GFR (African America >60 (>=60); Estimated GFR (Non-African Ame 53 (>=60); Globulin 3.1 g/dL; Glucose 105 mg/dL (74-106); Potassium 3.4 mmol/L (3.5-5.1); Sodium 141 mmol/L (136-145); Total Protein 5.5 g/dL (6.4-8.2)
[2023-11-18 05:05] LABS: Vancomycin Trough 9.9 ug/mL (5.0-20.0)
[2023-11-18] MEDS: VANCOMYCIN HCL 1,000 MG in 0.9 % SODIUM CHLORIDE 250 ML 250 MG IV (05:10)
[2023-11-18] MEDS: PIPERACILLIN SODIUM/TAZOBACTAM 3.375 GM in 0.9 % SODIUM CHLORIDE 50 ML IV ×3 (06:40→22:08)
[2023-11-18] MEDS: OMEPRAZOLE 40 MG CAPSULE.DR PO (06:40)
[2023-11-18] MEDS: FUROSEMIDE 20 MG TABLET 40 MG PO (08:10)
[2023-11-18] MEDS: FOLIC ACID 1 MG TABLET PO (08:10)
[2023-11-18] MEDS: SPIRONOLACTONE 25 MG TABLET PO (08:10)
[2023-11-18] MEDS: APIXABAN 5 MG TABLET PO ×2 (08:10→22:08)
[2023-11-18] MEDS: POTASSIUM CHLORIDE 10 MEQ ER TABLET PO (08:10)
[2023-11-18] MEDS: CHOLECALCIFEROL (VITAMIN D3) 125 MCG/5,000 UNIT TABLET PO (08:10)
[2023-11-18] MEDS: METOPROLOL TARTRATE 50 MG TABLET PO ×2 (08:10→22:08)
[2023-11-18] MEDS: LOSARTAN POTASSIUM 50 MG TABLET PO (08:10)
--- NOTE | 2023-11-18 08:36 | PM.PN ---
Progress Note: Subjective Subjective Interval history: Patient overall feeling better today. afebrile overnight. She denies any n/v/d. No current complaints. continues to get daily Neupogen. WBC's up to 2.8. Exam Narrative Exam Narrative: General: Patient is alert, and oriented to person, place and time with normal affect, proper hygiene Head: atraumatic, acephalic Eyes: PERRLA, no nystagmus present, conjunctiva clear, no scleral icterus Ears: normal gross auditory acuity Heart: Normal rate and rhythm, no murmurs/rubs/gallops Lungs: no audible wheezes, crackles and normal breath sounds all lung harrell Musculoskeletal: 1 + swelling bilateral lower extremities Neuro: CN II-X grossly intact Constitutional Vital Signs, click to edit/add: Last Vital Signs Temp 98.7 F 11/18/23 08:00 Pulse 77 11/18/23 08:00 Resp 16 11/18/23 08:00 BP 140/75 11/18/23 08:00 Pulse Ox 93 L 11/18/23 08:00 O2 Del Method Room Air 11/18/23 08:00 Progress Note: Objective Labs Labs: Short CBC 11/18/23 Range/Units 04:20 WBC 2.8 L (4.0-11.0) 10^3/uL Hgb 10.2 L (12.0-16.0) g/dL Hct 31.2 L (36.0-48.0) % Plt Count 152 (150-450) 10^3/uL BMP 11/18/23 04:20 Sodium 141 Potassium 3.4 L Chloride 104 Carbon Dioxide 28.9 BUN 8.0 Creatinine 1.04 H Glucose 105 Calcium 8.1 L Liver Function 11/18/23 Range/Units 04:20 Total Bilirubin 0.4 (0.2-1.0) mg/dL AST 12 L (15-37) U/L ALT 22 (14-59) U/L Alkaline Phosphatase 79 (46-116) U/L Albumin 2.4 L (3.4-5.0) g/dL Progress Note: A&P Assessment and Plan (1) Neutropenic fever: Assessment and Plan: Neupogen daily until WBC's >3, patient placed in neutropenic cautions. Continue Zosyn and vancomycin. awaiting cultures. (2) Sepsis: Assessment and Plan: resolved. Qualifiers: Sepsis type: Escherichia coli Sepsis acute organ dysfunction status: without acute organ dysfunction Qualified Code(s): A41.51 - Sepsis due to Escherichia coli [E. coli] (3) Urinary tract infection: Assessment and Plan: E.coli Qualifiers: Hematuria presence: without hematuria Urinary tract infection type: acute cystitis Qualified Code(s): N30.00 - Acute cystitis without hematuria (4) Pulmonary embolism and infarction: Assessment and Plan: continue eliquis (5) Breast cancer, right: Assessment and Plan: has a port, currently undergoing chemotherapy, spoke with MALORIE Russell of Dr. Garcia her hem/onc doctor. They are on board with plan. Qualifiers: Breast location: unspecified site of breast Estrogen receptor status: unspecified Patient sex: female Qualified Code(s): C50.911 - Malignant neoplasm of unspecified site of right female breast (6) Hyperlipemia: Assessment and Plan: continue atorvastatin Qualifiers: Hyperlipidemia type: unspecified Qualified Code(s): E78.5 - Hyperlipidemia, unspecified (7) Obesity: Qualifiers: Obesity classification: unspecified obesity classification Obesity type: due to excess calories Serious obesity comorbidity presence: without serious comorbidity Qualified Code(s): E66.09 - Other obesity due to excess calories (8) GERD (gastroesophageal reflux disease): Assessment and Plan: continue home meds Qualifiers: Esophagitis presence: without esophagitis Qualified Code(s): K21.9 - Gastro-esophageal reflux disease without esophagitis (9) HTN (hypertension): Assessment and Plan: continue losartan, metoprolol, aldactone Qualifiers: Hypertension type: primary hypertension Qualified Code(s): I10 - Essential (primary) hypertension Plan continue eliquis patient is a full code
--- NOTE | 2023-11-18 11:43 | CM.NOTE ---
Rounds made with Dr. Diez, no discharge today. Dr. Diez will speak with pt's oncologist for further recommendations.
--- NOTE | 2023-11-18 11:49 | CM.NOTE ---
Important Message From Medicare discussed with pt, pt verbalizes understanding and signs paper. Original given to pt and copy placed in pt's chart.
--- NOTE | 2023-11-18 16:04 | PT.DAILY ---
Physical Therapy Daily Note PT Daily Note/Assess Start: 11/18/23 16:01 Freq: Status: Active Protocol: Document 11/18/23 16:01 MARIA ANTONIA (Rec: 11/18/23 16:04 MARIA ANTONIA [id number]) Visit Not Completed Visit Not Completed Visit Not Completed Due to: Pt refusing Other Reason Visit Not Completed Pt refused 2x today. States I DON'T NEED THAT. Follow up tomorrow - if still uncooperative plan dc from PT case load? Physical Therapy Daily Note/Assessment Time In/Time Out Time In 16:00 Time Out 16:00 GG. Functional Abilities and Goals-Complete for Swing Bed Patients Only [id number]. Self-Care [id number]. Mobility
[2023-11-18] MEDS: FILGRASTIM 480 MCG/1.6 ML VIAL SUBQ (17:09)
[2023-11-18] MEDS: VANCOMYCIN HCL 1,250 MG in 0.9 % SODIUM CHLORIDE 250 ML 250 MG IV (17:09)
[2023-11-18] MEDS: ATORVASTATIN CALCIUM 40 MG TABLET PO (22:07)
[2023-11-19] VITALS (11 sets, daily range): BP systolic 129–146; BP diastolic 74–81; PULSE 78–90; RESP 16–18; TEMP 36.7–36.8; O2SAT 94–95
[2023-11-19] MEDS: VANCOMYCIN HCL 1,250 MG in 0.9 % SODIUM CHLORIDE 250 ML 250 MG IV (04:56)
[2023-11-19 05:26] LABS: Hematocrit 29.4 % (36.0-48.0); Hemoglobin 9.5 g/dL (12.0-16.0); Mean Corpuscular HGB Conc 32.3 g/dL (29.9-35.2); Mean Corpuscular Hemoglobin 30.3 pg (26.7-34.0); Mean Corpuscular Volume 93.6 fL (81.0-99.0); Mean Platelet Volume 10.3 fL (9.5-13.5); Platelet Count 239 10^3/uL (150-450); Red Blood Count 3.14 10^6/uL (4.20-5.40); Red Cell Distribution Width 14.4 % (11.0-15.0); White Blood Count 8.8 10^3/uL (4.0-11.0)
[2023-11-19 06:00] LABS: Eosinophils Absolute Manual 0.08 10^3/uL (0.00-0.70); Monocytes Absolute Manual 0.44 10^3/uL (0.30-0.80); Promyelocytes Absolute Manual 0.08
[2023-11-19 06:01] LABS: Hypochromasia 2+; Schistocytes 3+; Toxic Granulation 4+
[2023-11-19 06:18] LABS: Alanine Aminotransferase 24 U/L (14-59); Albumin Globulin Ratio 0.9; Albumin Level 2.7 g/dL (3.4-5.0); Alkaline Phosphatase 101 U/L (46-116); Anion Gap 13.1; Aspartate Amino Transferase 17 U/L (15-37); BUN Creatinine Ratio 9.5; Bilirubin Total 0.3 mg/dL (0.2-1.0); Calcium 8.3 mg/dL (8.5-10.1); Carbon Dioxide 26.6 mmol/L (21.0-32.0); Chloride 105 mmol/L (98-107); Estimated GFR (African America 56 (>=60); Estimated GFR (Non-African Ame 46 (>=60); Globulin 3.1 g/dL; Glucose 113 mg/dL (74-106); Potassium 3.7 mmol/L (3.5-5.1); Sodium 141 mmol/L (136-145); Total Protein 5.8 g/dL (6.4-8.2)
[2023-11-19] MEDS: PIPERACILLIN SODIUM/TAZOBACTAM 3.375 GM in 0.9 % SODIUM CHLORIDE 50 ML IV (06:24)
[2023-11-19] MEDS: OMEPRAZOLE 40 MG CAPSULE.DR PO (06:35)
--- NOTE | 2023-11-19 06:56 | PC.NURSE ---
pt had a 6 beat run of V-tach at 0637. pt has no complaints of pain or discomfort. Pt in sinus rhythm HR 77. Dr. Diez aware
--- NOTE | 2023-11-19 08:48 | P.DS_ITS ---
DS: Providers Provider Date of admission: 11/16/23 07:55 Primary care physician: Non-Staff Physician, Admitting clinician: Suzanne Diez Consults: 11/16/23 07:16 Physical Therapy Eval and Treat Routine Reason for consultation: weakness Has provider been notified: No Discharging clinician: Suzanne Diez DS: Diagnosis Discharge Diagnosis (1) Neutropenic fever: (2) Sepsis: Qualifiers: Sepsis acute organ dysfunction status: without acute organ dysfunction Sepsis type: Escherichia coli Qualified Code(s): A41.51 - Sepsis due to Escherichia coli [E. coli] (3) Pulmonary embolism and infarction: (4) Hyperlipemia: Qualifiers: Hyperlipidemia type: unspecified Qualified Code(s): E78.5 - Hyperlipidemia, unspecified (5) Obesity: Qualifiers: Obesity classification: unspecified obesity classification Obesity type: due to excess calories Serious obesity comorbidity presence: without seri ous comorbidity Qualified Code(s): E66.09 - Other obesity due to excess calories (6) GERD (gastroesophageal reflux disease): Qualifiers: Esophagitis presence: without esophagitis Qualified Code(s): K21.9 - Gastro-esophageal reflux disease without esophagitis (7) HTN (hypertension): Qualifiers: Hypertension type: primary hypertension Qualified Code(s): I10 - Essential (primary) hypertension (8) Breast cancer, left breast: Qualifiers: Breast location: unspecified site of breast Estrogen receptor status: unspecified (9) Sepsis due to Staphylococcus epidermidis: (10) E-coli UTI: DS: Summary Hospital Course Hospital Course: patient is a 68-year-old female with past medical history of left breast cancer status post mastectomy and lymph node dissection and chemotherapy. Last chemotherapy was on 11/05/23. Since that time patient has been treated for a right pulmonary embolus and was placed on Eliquis. Patient notes that she started feeling bad again several days ago with some fevers but also some urinary symptoms.. She presented to the Emergency Room and found to have neutropenia with a white blood cell count of 1.0 and a positive urinalysis. Patient was admitted for neutropenic fever and urinary tract infection. Patient's viral cultures have been negative. The case was also discussed with Dr. Melendrez who is on-call for her oncologist. He recommended placing patient on Zosyn, and starting Neupogen. Patients temperature 102.4 sepsis protocol was initiated. Due to patient's history of congestive heart failure fluid bolus was not obtained but just started on a rate as I did not want to cause a acute congestive heart failure exacerbation. Lactate 2.1, another set of blood cultures obtained. Full viral panel negative, Also started on Vancomycin. At the time of discharge patient's WBC's are 8.8 from the daily Neupogen, she has remained afebrile. She has no complaints on exam. Her Urine is growing out Ecoli sensitive to Cefzolin and will placed on 500mg BID x 10 days. Blood cultures are negative 3/ with one growing methicillin resistant staph epi, sensitive to tetracyclines. I feel this is a contaminant but given her immunocompromised s elizabeth will place on doxycycline as well at 100mg BID x 10 days. I have discussed all plan of care with Dr. Garcia's (hem/onc) nurse Yvonne and they will contact patient for a follow up appt next week. She will have a follow up also with her PCP. She is to resume all other home medications. Please return to the ER with any worsening signs or symptoms. Status at Discharge Overall status at discharge: patient is back to baseline Time Spent with Patient Time attestation: Total time spent providing and/or coordinating discharge services: Time spent: greater than 30 minutes Exam Narrative Exam Narrative: General: Patient is alert, and oriented to person, place and time with normal affect, proper hygiene Head: atraumatic, acephalic Eyes: PERRLA, no nystagmus present, conjunctiva clear, no scleral icterus Ears: normal gross auditory acuity Heart: Normal rate and rhythm, no murmurs/rubs/gallops Lungs: no audible wheezes, crackles and normal breath sounds all lung harrell Musculoskeletal: 1 + swelling bilateral lower extremities Neuro: CN II-X grossly intact Constitutional Vital Signs, click to edit/add: Last Vital Signs Temp 98.3 F 11/19/23 07:24 Pulse 90 11/19/23 08:00 Resp 18 11/19/23 07:26 BP 146/81 H 11/19/23 07:24 Pulse Ox 94 L 11/19/23 07:24 O2 Del Method Room Air 11/19/23 07:24 DS: Data Data Completed and Pending Labs on day of discharge: Labs from last 24 hours 11/19/23 05:06 WBC 8.8 RBC 3.14 L Hgb 9.5 L Hct 29.4 L MCV 93.6 MCH 30.3 MCHC 32.3 RDW 14.4 Plt Count 239 MPV 10.3 Seg Neuts % (Manual) 66.0 Band Neutrophils % 11.0 H Lymphocytes % (Manual) 16.0 L Monocytes % (Manual) 5.0 Eosinophils % (Manual) 1.0 Basophils % (Manual) 0.0 L Promyelocytes % 1.0 Neutrophils # (Manual) 5.80 Band Neutrophils # 1.0 H Lymphocytes # (Manual) 1.40 Monocytes # (Manual) 0.44 Eosinophils # (Manual) 0.08 Basophils # (Manual) 0.00 Promyelocytes # 0.08 Toxic Granulation 4+ Hypochromasia 2+ Schistocytes 3+ Sodium 141 Potassium 3.7 Chloride 105 Carbon Dioxide 26.6 Anion Gap 13.1 BUN 11.0 Creatinine 1.16 H Est GFR ( Amer) 56 L Est GFR (Non-Af Amer) 46 L BUN/Creatinine Ratio 9.5 Glucose 113 H Calcium 8.3 L Total Bilirubin 0.3 AST 17 ALT 24 Alkaline Phosphatase 101 Total Protein 5.8 L Albumin 2.7 L Globulin 3.1 Albumin/Globulin Ratio 0.9 Preliminary micro results at discharge 11/16/23 14:39 - Preliminary Blood NO GROWTH AT 36-48 HOURS. FINAL TO FOLLOW. 11/16/23 14:32 Blood Culture Result 1 - Preliminary Blood NO GROWTH AT 36-48 HOURS. FINAL TO FOLLOW. 11/16/23 05:32 - Preliminary Blood NO GROWTH AT 36-48 HOURS. FINAL TO FOLLOW. 11/16/23 05:20 Blood Culture Result 1 - Preliminary Blood NO GROWTH AT 36-48 HOURS. FINAL TO FOLLOW. Discharge Plan Discharge Disposition: Home Health Service Condition: Good Discharge Medications: New doxycycline hyclate 100 mg tablet 100 mg PO BID 10 Days Qty: 20 0RF cefprozil 500 mg tablet 500 mg PO BID 10 Days Qty: 20 0RF Continued folic acid 1 mg tablet 1 mg PO .QD Rx Instructions: EXCEPT ON SATURDAY spironolactone [Aldactone] 25 mg tablet 25 mg PO DAILY Qty: 30 0RF Eliquis 5 mg tablet 5 mg PO Q12H 30 Days Qty: 72 0RF Rx Instructions: use 2 pills twice a day for 6 days, take 1 pill twice a day for 24 days. furosemide 20 mg tablet 40 mg PO DAILY Qty: 0 0RF metoprolol tartrate 50 mg tablet 50 mg PO BID multivitamin Tablet 1 tab PO DAILY cholecalciferol (vitamin D3) 125 mcg (5,000 unit) capsule 125 mcg PO DAILY potassium chloride 10 mEq capsule, extended release 10 meq PO DAILY methotrexate sodium 2.5 mg tablet 15 mg PO .SATURDAY losartan [Cozaar] 50 mg tablet 50 mg PO DAILY atorvastatin 40 mg tablet 40 mg PO .QHS Activity: increase activity as tolerated Diet: advance to your usual diet Print Language: Chinese Forms: Portal Instructions Follow Up Appointments: November 20 @ 11:30am with Dr. Jenkins [phone] Dr. Garcia office will call patient for follow up next week Discharge location: Home with Home Health
[2023-11-19] MEDS: FUROSEMIDE 20 MG TABLET 40 MG PO (09:49)
[2023-11-19] MEDS: APIXABAN 5 MG TABLET PO (09:50)
[2023-11-19] MEDS: FOLIC ACID 1 MG TABLET PO (09:50)
[2023-11-19] MEDS: POTASSIUM CHLORIDE 10 MEQ ER TABLET PO (09:50)
[2023-11-19] MEDS: CHOLECALCIFEROL (VITAMIN D3) 125 MCG/5,000 UNIT TABLET PO (09:50)
[2023-11-19] MEDS: SPIRONOLACTONE 25 MG TABLET PO (09:50)
[2023-11-19] MEDS: LOSARTAN POTASSIUM 50 MG TABLET PO (09:50)
[2023-11-19] MEDS: METOPROLOL TARTRATE 50 MG TABLET PO (09:50)
--- NOTE | 2023-11-19 10:55 | SWNOTE1 ---
SW received message from case management and pt is current with [facility] . Pt did refuse physical therapy on 11/18/23, but did work with them on 11/16/23 but voiced she felt she did not need any further therapy. SW to resume her skilled nurse at home with [facility] at discharge.
--- NOTE | 2023-11-19 11:47 | CM.NOTE ---
Rounds made with Dr. Diez, pt will discharge to home today and f/u with PCP and oncology. Pt will continue with [facility] at discharge.
--- NOTE | 2023-11-19 12:55 | SWNOTE1 ---
Pt is current with [facility]. SW sent face sheet, ED note, physician notes, dc summary, dc med rec, and PT notes to [facility]. Pt will resume her home health.
--- NOTE | 2023-11-20 12:39 | CM.DCFOLLOWU ---
Person spoke with: Yue How are you feeling? Still having low grade fevers How is your pain? No pain Did you understand your discharge instructions? Yes Do you have any questions about your discharge instructions? No Were you given any prescriptions at discharge? Yes Were you able to get your prescriptions filled? Yes Do you understand how to take your medications as ordered? Yes Do you have any questions about your follow up appointment and do you plan to keep your follow up appointment? No and yes will keep appt Is there anything else that you would like to discuss? No Questions/Comments/Concerns/Other:
== END 2023-11-19 14:23 | disposition home health service (06) | DRG 871 ==
LOC: ER 06:38 → MS 07:58
PROVIDERS: Admitting Provider Family Medicine; Emergency Provider Emergency Medicine; Visit Provider Family Medicine
DX: A41.9 Sepsis, unspecified organism (principal); I26.99 Other pulmonary embolism without acute cor pulmonale; N30.00 Acute cystitis without hematuria; Z68.42 Body mass index [BMI] 45.0-49.9, adult; B96.20 Unspecified Escherichia coli [E. coli] as the cause of diseases classified elsewhere; C50.912 Malignant neoplasm of unspecified site of left female breast; D70.9 Neutropenia, unspecified; E78.5 Hyperlipidemia, unspecified; E66.09 Other obesity due to excess calories; I11.0 Hypertensive heart disease with heart failure; I50.9 Heart failure, unspecified; J44.9 Chronic obstructive pulmonary disease, unspecified; K21.9 Gastro-esophageal reflux disease without esophagitis; M06.9 Rheumatoid arthritis, unspecified; M48.00 Spinal stenosis, site unspecified; Z95.828 Presence of other vascular implants and grafts; Z79.01 Long term (current) use of anticoagulants; Z79.899 Other long term (current) drug therapy; Z90.12 Acquired absence of left breast and nipple; Z87.442 Personal history of urinary calculi; Z96.653 Presence of artificial knee joint, bilateral; Z98.890 Other specified postprocedural states
CPT/HCPCS: 0202U; 36415; 36591; 71045; 80048; 80053; 80202; 81001; 83605; 84145; 85007; 85025; 85027; 87040; 87086; 87150; 87186; 87804; 87811; 93005; 94761; 96365; 96366; 96367; 96368; 97161; 97530; 99285; J1442; J3370

== ENCOUNTER 2024-01-08 10:46 | Emergency (ER) | payer MEDICARE, OTHER, SELFPAY ==
[2024-01-08 10:51] VITALS: BP 167/69; PULSE 104; TEMP 36.3; O2SAT 95; BMI 47.6
--- NOTE | 2024-01-08 10:59 | CT_ITS ---
The [address] [address] Patient Name: MINAL CAPUTO MRN: [id number] date: 1955 Sex: F Assigned Patient Location: ER Current Patient Location: Accession/Order Number: [id number] Exam Date: 01/08/2024 11:39 Report Date: 01/08/2024 12:29 At the request of: NENO MANN Procedure: CT abdomen pelvis w con EXAM: CT abdomen pelvis w con HISTORY: rlq abd pain, breast ca COMPARISON: None. TECHNIQUE: Following intravenous administration of 99 mL Omnipaque 350, axial soft tissue windows of the abdomen and pelvis were sagittal reformats. CT dose reduction technique was used including Automated Exposure Control. Findings: Partially visualized right breast lesion. Partially visualized large hiatal hernia. ABDOMEN: There is fatty infiltration of the liver. The gallbladder, spleen, pancreas, and adrenal glands are unremarkable. Minimal nonspecific bilateral perinephric fat stranding. Punctate nonobstructing bilateral renal stones. No renal collecting system dilatation. Left renal low-attenuation lesions, too small to characterize. The visualized portions of the bilateral ureters are nondilated. Evaluation of the bowel is limited given the absence of oral contrast. There are colonic diverticula. There is mild stranding of the fat adjacent to a diverticulum involving the descending colon concerning for acute diverticulitis. There are similar findings involving a diverticulum involving the proximal transverse colon. No bowel obstruction. The appendix is nondilated. The aorta is normal caliber. Mild atherosclerotic disease. No enlarged abdominal lymph nodes or free abdominal fluid. Small to moderate fat-containing umbilicus hernia. Pelvis: Unremarkable bladder. Off the uterus is present and unremarkable within the limits of CT. No enlarged pelvic lymph nodes or free pelvic fluid. No aggressive sclerotic or lytic osseous lesions. L4-L5 fusion. Severe levoconvex scoliosis with multilevel degenerative spondylosis. CT/CT abdomen pelvis w con IMPRESSION: 1. Acute diverticulitis 2. Nonobstructing bilateral renal stones. 3. Fatty liver. 4. Large hiatal hernia. 5. Other nonemergent findings, as described above. Electronically authenticated by: JAVI NG Date: 01/08/2024 12:29
--- NOTE | 2024-01-08 10:59 | ECG_ITS ---
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
--- NOTE | 2024-01-08 11:08 | ED.ABDPAIN1 ---
HPI - Abdominal Pain General Chief Complaint: Abdominal Pain Stated Complaint: ABDOMINAL PAIN Time Seen by Provider: 01/08/24 10:47 Source: patient Mode of arrival: Wheelchair Limitations: no limitations History of Present Illness HPI narrative: Patient presents to ED Complaining of right-sided abdominal pain. She said it started yesterday and it has been worsening into today. Slight nausea but no vomiting. The pain is in the right side and gets worse with deep breathing. Patient has a history of breast cancer and she is undergoing chemo. She however did not have her chemo yesterday because she has a cyst in her vaginal area that they are going to I&D, so they skipped chemo this week. She said that is not really bothering her and that it is not the reason for her emergency room visit today however the right-sided abdominal pain is pretty uncomfortable. She does still have her gallbladder and her appendix. She denies diarrhea or constipation. No blood in the stool. She has a port in her right chest. Patient reports feeling bloated and reports abdominal distention Related Data Home Medications ?Medication ?Instructions ?Recorded ?Confirmed cholecalciferol (vitamin D3) 125 125 mcg PO DAILY 01/25/23 11/16/23 mcg (5,000 unit) capsule metoprolol tartrate 50 mg tablet 50 mg PO BID 01/25/23 11/16/23 multivitamin 1 tab PO DAILY 01/25/23 11/16/23 potassium chloride 10 mEq 10 meq PO DAILY 01/25/23 11/16/23 capsule,extended release folic acid 1 mg tablet 1 mg PO .QD 11/06/23 11/16/23 atorvastatin 40 mg tablet 40 mg PO .QHS 11/16/23 11/16/23 losartan 50 mg tablet (Cozaar) 50 mg PO DAILY 11/16/23 11/16/23 methotrexate sodium 2.5 mg tablet 15 mg PO .Saturday11/16/23 11/16/23 Previous Rx's ?Medication ?Instructions ?Recorded apixaban 5 mg tablet (Eliquis) 5 mg PO Q12H 30 days #72 tabs 11/08/23 furosemide 20 mg tablet 40 mg (2 x 20 mg) PO DAILY #0 tabs 11/08/23 spironolactone 25 mg tablet 25 mg PO DAILY #30 tabs 11/08/23 (Aldactone) cefprozil 500 mg tablet 500 mg PO BID 10 days #20 tabs 11/19/23 doxycycline hyclate 100 mg tablet 100 mg PO BID 10 days #20 tabs 11/19/23 ciprofloxacin HCl 500 mg tablet 500 mg PO BID 10 days #20 tabs 01/08/24 (Cipro) fluconazole 150 mg tablet 150 mg PO Q3D 2 doses #2 tabs 01/08/24 metronidazole 500 mg tablet 500 mg PO Q12H 10 days #20 tabs 01/08/24 oxycodone-acetaminophen 5 mg-325 1 tab PO Q6H #14 tabs 01/08/24 mg tablet (Percocet) Allergies Allergy/AdvReac Type Severity Reaction Status Date / Time fentanyl Allergy Intermediate Verified 11/16/23 04:53 Sulfa (Sulfonamide Allergy Intermediate Verified 11/16/23 04:53 Antibiotics) adhesive tape AdvReac Intermediate Verified 11/16/23 04:53 Review of Systems ROS Status of ROS 10 or more systems reviewed and unremarkable except as noted in history and below [facility] Medical History (Updated 01/08/24 @ 13:06 by Meliza Negrete DO) Breast cancer, left breast ?C50.912 - Malignant neoplasm of unspecified site of left female breast (ICD-10) Pulmonary embolism and infarction ?I26.99 - Other pulmonary embolism without acute cor pulmonale (ICD-10) Pulmonary embolism on right ?I26.99 - Other pulmonary embolism without acute cor pulmonale (ICD-10) Lymph node cancer ?C77.9 - Secondary and unspecified malignant neoplasm of lymph node, unspecified (ICD-10) Numbness and tingling of both lower extremities ?R20.0 - Anesthesia of skin (ICD-10) ?R20.2 - Paresthesia of skin (ICD-10) 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 - Postmastectomy lymphedema syndrome (ICD-10) Rheumatoid arthritis ?M06.9 - Rheumatoid arthritis, unspecified (ICD-10) Spinal stenosis ?M48.00 - Spinal stenosis, site unspecified (ICD-10) Kidney stones ?N20.0 - Calculus of kidney (ICD-10) Heart murmur ?R01.1 - Cardiac murmur, unspecified (ICD-10) Scoliosis ?M41.9 - Scoliosis, unspecified (ICD-10) Hyperlipemia ?E78.5 - Hyperlipidemia, unspecified (ICD-10) Obesity ?E66.9 - Obesity, unspecified (ICD-10) Borderline diabetes ?R73.03 - Prediabetes (ICD-10) Breast cancer ?C50.919 - Malignant neoplasm of unspecified site of unspecified female breast (ICD-10) Edema ?R60.9 - Edema, unspecified (ICD-10) GERD (gastroesophageal reflux disease) ?K21.9 - Gastro-esophageal reflux disease without esophagitis (ICD-10) COPD (chronic obstructive pulmonary disease) ?J44.9 - Chronic obstructive pulmonary disease, unspecified (ICD-10) HTN (hypertension) ?I10 - Essential (primary) hypertension (ICD-10) Surgical History (Updated 11/16/23 @ 19:07 by Perla Ayers LPN) History of mastectomy ?Z90.10 - Acquired absence of unspecified breast and nipple (ICD-10) History of total left knee replacement ?Z96.652 - Presence of left artificial knee joint (ICD-10) History of total right knee replacement ?Z96.651 - Presence of right artificial knee joint (ICD-10) History of back surgery ?Z98.890 - Other specified postprocedural states (ICD-10) Family History Father Family history of CHF (congestive heart failure) Family history of cancer Family history of hypertension Sister Family history of stroke Mother Family history of cancer Family history of hypertension Social History Within the past year, how often did you have a drink containing alcohol: never Within the past year, how many standard drinks containing alcohol did you have on a typical day: 1 or 2 Within the past year, how often did you have six or more drinks on one occasion: never Total score: 0 Score interpretation: A score less than 3 is consistent with normal alcohol consumption. Smoking status: Never smoker Second hand tobacco smoke exposure: No Non-prescribed substance use: denies use Previous occupational history: none Known occupational exposures/hazards: No Highest level of school completed/degree received: some college, no degree Do you want help with school or training: No Are you now , , , , never or living with a partner: don't know In a typical week, how many times do you talk on the telephone with family, friends, or neighbors: 3 or more times per week How often do you get together with friends or relatives: once per week How often do you attend gnosticist or anabaptism services: never Do you belong to any clubs or organizations such as gnosticist groups unions, fraternal or athletic groups, or school groups: no Total score: 1 Score interpretation: A score of less than or equal to 1 indicates the most socially isolated. Little interest or pleasure in doing things: not at all Feeling down, depressed, or hopeless: not at all Feel stressed/tense/nervous/anxious/difficulty sleeping: to some extent Life stressors: other Life stressor details: diagnosis with breast cancer Due to disability, difficulty making decisions: No Do you think of yourself as: decline to answer Gender Identity: decline to answer Exam Narrative Exam Narrative: Time Seen: [] Vital Signs: [Per nurse's notes.] General: [Alert] Skin: [Warm, dry, no rash.] Head: [Normocephalic, atraumatic.] Neck: [Supple, trachea midline.] Eye: [Pupils are equal, round and reactive to light, extraocular movements are intact, normal conjunctiva.] Ears, nose, mouth and throat: oral mucosa moist. Cardiovascular: [Regular rate and rhythm, no murmur.] Respiratory: [Lungs are clear to auscultation, respirations are non-labored, breath sounds are equal.] Chest wall: [No tenderness, no deformity.] Gastrointestinal: [Soft, Tenderness in the right upper quadrant and right lower quadrant of her abdomen., Mildly distended, normal bowel sounds.] MSK: 5 out of 5 muscle strength x 4 extremities no calf pain or edema Lymphatics: [No lymphadenopathy.] Psychiatric: [Cooperative, appropriate mood & affect.] Neurological: [Alert and oriented to person, place, time, and situation, no focal neurological deficit observed.] Constitutional Vital Signs, click to edit/add: Last Vital Signs Temp 97.4 F L 01/08/24 10:51 Pulse 83 01/08/24 12:22 Resp 18 01/08/24 12:22 BP 151/83 H 01/08/24 12:22 Pulse Ox 97 01/08/24 12:22 O2 Del Method Room Air 01/08/24 12:22 Course Vital Signs Vital signs: Vital Signs Temperature 97.4 F L 01/08/24 10:51 Pulse Rate 104 H 01/08/24 10:51 Respiratory Rate 18 01/08/24 10:51 Blood Pressure 167/69 H 01/08/24 10:51 Pulse Oximetry 95 01/08/24 10:51 Oxygen Delivery Method Room Air 01/08/24 10:51 Temperature 97.4 F L 01/08/24 10:51 Pulse Rate 83 01/08/24 12:22 Respiratory Rate 18 01/08/24 12:22 Blood Pressure 151/83 H 01/08/24 12:22 Pulse Oximetry 97 01/08/24 12:22 Oxygen Delivery Method Room Air 01/08/24 12:22 MDM - Abdominal Pain MDM Narrative Medical decision making narrative: Patient's labs are nonacute. Patient CT scan shows acute diverticulitis. I told her to call her oncologist right away to inform them that she will need to be on antibiotics. She also does get yeast infection so I will send her home with Diflucan. I will also send her home with something for pain. She is to return to ED if worsening pain nausea vomiting fevers or shaking chills. Patient is comfortable care plan for home. Differential Diagnosis Differential diagnosis: Likely abdominal pain, acute appendicitis, calculus of kidney, diverticulitis, gastroenteritis and small bowel obstruction Medical Records Attestation: I reviewed the patient's medical records. Lab Data Attestation: I reviewed the patient's lab results. Labs: Lab Results 01/08/24 Range/Units 11:00 WBC 5.8 (4.0-11.0) 10^3/uL RBC 3.38 L (4.20-5.40) 10^6/uL Hgb 11.0 L (12.0-16.0) g/dL Hct 32.9 L (36.0-48.0) % MCV 97.3 (81.0-99.0) fL MCH 32.5 (26.7-34.0) pg MCHC 33.4 (29.9-35.2) g/dL RDW 17.6 H (11.0-15.0) % Plt Count 325 (150-450) 10^3/uL MPV 9.7 (9.5-13.5) fL Neut % (Auto) 69.9 (43.0-75.0) % Lymph % (Auto) 19.0 L (20.5-60.0) % Summers % (Auto) 7.2 (1.7-12.0) % Eos % (Auto) 2.9 (0.9-7.0) % Baso % (Auto) 0.5 (0.2-2.0) % Neut # (Auto) 4.1 (1.4-6.5) 10^3/uL Lymph # (Auto) 1.1 L (1.2-3.8) 10^3/uL Summers # (Auto) 0.4 (0.3-0.8) 10^3/uL Eos # (Auto) 0.2 (0.0-0.7) 10^3/uL Baso # (Auto) 0.0 (0.0-0.1) 10^3/uL Abs Immat Gran (auto) 0.03 (0.00-0.03) 10^3/uL Imm/Tot Granulo (auto) 0.5 (0.0-0.5) % Sodium 138 (136-145) mmol/L Potassium 3.9 (3.5-5.1) mmol/L Chloride 101 (98-107) mmol/L Carbon Dioxide 28.4 (21.0-32.0) mmol/L Anion Gap 12.5 BUN 19.0 H (7.0-18.0) mg/dL Creatinine 1.14 H (0.55-1.02) mg/dL Est GFR ( Amer) 57 L (>=60) Est GFR (Non-Af Amer) 47 L (>=60) BUN/Creatinine Ratio 16.7 Glucose 133 H (74-106) mg/dL Calcium 9.2 (8.5-10.1) mg/dL Total Bilirubin 0.8 (0.2-1.0) mg/dL AST 18 (15-37) U/L ALT 36 (14-59) U/L Alkaline Phosphatase 94 (46-116) U/L Total Protein 6.7 (6.4-8.2) g/dL Albumin 3.1 L (3.4-5.0) g/dL Globulin 3.6 g/dL Albumin/Globulin Ratio 0.9 Lipase 36.0 (16.0-77.0) U/L Imaging Data CT scan - abdomen: Radiologist's impression: ITS Impressions Abdomen/Pelvis CT 01/08/24 10:59 IMPRESSION: 1. Acute diverticulitis 2. Nonobstructing bilateral renal stones. 3. Fatty liver. 4. Large hiatal hernia. 5. Other nonemergent findings, as described above. Electronically authenticated by: JAVI NG Date: 01/08/2024 12:29 ECG Data Attestation: I personally reviewed and interpreted this ECG as follows: Interpretation: EKG INTERPRETATION Time: []1056 Rate: []95 Rhythm: _ [] ST segments: _ [] T waves: _ [] Ectopy: _ [] P wave/LA interval: _ [] QRS interval: _ [] QT interval: _ [] Comparison: _ [] Comparison EKG date: [] Performed by: [self]Normal sinus rhythm no acute ST elevation or depression normal axis Discharge Plan Discharge Stand Alone Forms: Portal Instructions Chief Complaint: Abdominal Pain Clinical Impression: Diverticulitis Patient Disposition: Home, Self-Care Time of Disposition Decision: 13:06 Condition: Good Mode of Transportation: Private Vehicle Prescriptions / Home Meds: New oxycodone-acetaminophen [Percocet] 5-325 mg tablet 1 tab PO Q6H Qty: 14 0RF ciprofloxacin HCl [Cipro] 500 mg tablet 500 mg PO BID 10 Days Qty: 20 0RF metronidazole 500 mg tablet 500 mg PO Q12H 10 Days Qty: 20 0RF fluconazole 150 mg tablet 150 mg PO Q3D Qty: 2 0RF No Action folic acid 1 mg tablet 1 mg PO .QD Rx Instructions: EXCEPT ON SATURDAY spironolactone [Aldactone] 25 mg tablet 25 mg PO DAILY Qty: 30 0RF Eliquis 5 mg tablet 5 mg PO Q12H 30 Days Qty: 72 0RF Rx Instructions: use 2 pills twice a day for 6 days, take 1 pill twice a day for 24 days. furosemide 20 mg tablet 40 mg PO DAILY Qty: 0 0RF metoprolol tartrate 50 mg tablet 50 mg PO BID multivitamin Tablet 1 tab PO DAILY cholecalciferol (vitamin D3) 125 mcg (5,000 unit) capsule 125 mcg PO DAILY potassium chloride 10 mEq capsule, extended release 10 meq PO DAILY methotrexate sodium 2.5 mg tablet 15 mg PO .SATURDAY losartan [Cozaar] 50 mg tablet 50 mg PO DAILY atorvastatin 40 mg tablet 40 mg PO .QHS doxycycline hyclate 100 mg tablet 100 mg PO BID 10 Days Qty: 20 0RF cefprozil 500 mg tablet 500 mg PO BID 10 Days Qty: 20 0RF Print Language: [place] Instructions: Diverticulitis (ED) Referrals: Sunny Jenkins ND [Primary Care Provider] - 1 week
[2024-01-08 11:10] LABS: Basophils Percent Auto 0.5 % (0.2-2.0); Eosinophils Absolute Auto 0.2 10^3/uL (0.0-0.7); Eosinophils Percent Auto 2.9 % (0.9-7.0); Hematocrit 32.9 % (36.0-48.0); Immature Granulocytes Abs Auto 0.03 10^3/uL (0.00-0.03); Immature Granulocytes Pct Auto 0.5 % (0.0-0.5); Lymphocytes Absolute Auto 1.1 10^3/uL (1.2-3.8); Mean Corpuscular HGB Conc 33.4 g/dL (29.9-35.2); Mean Corpuscular Hemoglobin 32.5 pg (26.7-34.0); Mean Corpuscular Volume 97.3 fL (81.0-99.0); Mean Platelet Volume 9.7 fL (9.5-13.5); Monocytes Absolute Auto 0.4 10^3/uL (0.3-0.8); Monocytes Percent Auto 7.2 % (1.7-12.0); Neutrophils Absolute Auto 4.1 10^3/uL (1.4-6.5); Neutrophils Percent Auto 69.9 % (43.0-75.0); Platelet Count 325 10^3/uL (150-450); Red Blood Count 3.38 10^6/uL (4.20-5.40); Red Cell Distribution Width 17.6 % (11.0-15.0); White Blood Count 5.8 10^3/uL (4.0-11.0)
[2024-01-08] MEDS: 0.9 % SODIUM CHLORIDE 1,000 ML 1000 ML IV (11:15)
[2024-01-08] MEDS: KETOROLAC TROMETHAMINE 30 MG/ML VIAL 15 MG IVP (11:15)
[2024-01-08] MEDS: ONDANSETRON PF 4 MG/2 ML VIAL IV (11:15)
[2024-01-08 11:29] LABS: Alanine Aminotransferase 36 U/L (14-59); Albumin Globulin Ratio 0.9; Albumin Level 3.1 g/dL (3.4-5.0); Alkaline Phosphatase 94 U/L (46-116); Anion Gap 12.5; Aspartate Amino Transferase 18 U/L (15-37); BUN Creatinine Ratio 16.7; Bilirubin Total 0.8 mg/dL (0.2-1.0); Calcium 9.2 mg/dL (8.5-10.1); Carbon Dioxide 28.4 mmol/L (21.0-32.0); Chloride 101 mmol/L (98-107); Estimated GFR (African America 57 (>=60); Estimated GFR (Non-African Ame 47 (>=60); Globulin 3.6 g/dL; Glucose 133 mg/dL (74-106); Potassium 3.9 mmol/L (3.5-5.1); Sodium 138 mmol/L (136-145); Total Protein 6.7 g/dL (6.4-8.2)
[2024-01-08 12:22] VITALS: BP 151/83; PULSE 83; O2SAT 97
[2024-01-08] MEDS: HEPARIN SODIUM (PORCINE) PF LOCK FLUSH 500 UNIT/5 ML SYRINGE IV (14:01)
[2024-01-08 14:05] VITALS: BP 155/57; PULSE 77; O2SAT 96
== END 2024-01-08 14:05 | disposition home or self-care (01) ==
PROVIDERS: Emergency Provider Emergency Medicine; PCP Student in an Organized Health Care Education/Training Program
DX: K57.32 Diverticulitis of large intestine without perforation or abscess without bleeding (principal); C50.912 Malignant neoplasm of unspecified site of left female breast; M06.9 Rheumatoid arthritis, unspecified; M41.9 Scoliosis, unspecified; E78.5 Hyperlipidemia, unspecified; R73.03 Prediabetes; E66.9 Obesity, unspecified; K21.9 Gastro-esophageal reflux disease without esophagitis; J44.9 Chronic obstructive pulmonary disease, unspecified; I10 Essential (primary) hypertension; Z90.10 Acquired absence of unspecified breast and nipple; Z87.442 Personal history of urinary calculi; Z79.899 Other long term (current) drug therapy; Z86.711 Personal history of pulmonary embolism; Z96.652 Presence of left artificial knee joint; Z98.890 Other specified postprocedural states; Z79.01 Long term (current) use of anticoagulants; Z68.42 Body mass index [BMI] 45.0-49.9, adult
CPT/HCPCS: 36415; 74177; 80053; 83690; 85025; 93005; 96374; 96375; 99285; Q9967

== ENCOUNTER 2024-05-04 15:50 | Emergency (ER) | payer MEDICARE, OTHER, SELFPAY ==
[2024-05-04 15:54] VITALS: BP 170/79; PULSE 88; TEMP 36.6; O2SAT 100; BMI 50.3
--- NOTE | 2024-05-04 16:07 | ED_ITS ---
HPI - Abdominal Pain General Chief Complaint: Abdominal Pain Stated Complaint: Abdominal Pain Time Seen by Provider: 05/04/24 15:59 Source: patient Mode of arrival: walk-in Limitations: no limitations History of Present Illness HPI narrative: 68 year old female presents to the ED for LLQ pain. Onset was 1-2 days ago. Denies fever, emesis, diarrhea, urinary sx. Reports chills. She has concern for diverticulitis. She is driving today which limits her pain treatment options here. Related Data Home Medications ?Medication ?Instructions ?Recorded ?Confirmed cholecalciferol (vitamin D3) 125 125 mcg PO DAILY 01/25/23 11/16/23 mcg (5,000 unit) capsule metoprolol tartrate 50 mg tablet 50 mg PO BID 01/25/23 11/16/23 multivitamin 1 tab PO DAILY 01/25/23 11/16/23 potassium chloride 10 mEq 10 meq PO DAILY 01/25/23 11/16/23 capsule,extended release folic acid 1 mg tablet 1 mg PO .QD 11/06/23 11/16/23 atorvastatin 40 mg tablet 40 mg PO .QHS 11/16/23 11/16/23 losartan 50 mg tablet (Cozaar) 50 mg PO DAILY 11/16/23 11/16/23 methotrexate sodium 2.5 mg tablet 15 mg PO .Saturday11/16/23 11/16/23 Previous Rx's ?Medication ?Instructions ?Recorded apixaban 5 mg tablet (Eliquis) 5 mg PO Q12H 30 days #72 tabs 11/08/23 furosemide 20 mg tablet 40 mg (2 x 20 mg) PO DAILY #0 tabs 11/08/23 spironolactone 25 mg tablet 25 mg PO DAILY #30 tabs 11/08/23 (Aldactone) cefprozil 500 mg tablet 500 mg PO BID 10 days #20 tabs 11/19/23 doxycycline hyclate 100 mg tablet 100 mg PO BID 10 days #20 tabs 11/19/23 ciprofloxacin HCl 500 mg tablet 500 mg PO BID 10 days #20 tabs 01/08/24 (Cipro) fluconazole 150 mg tablet 150 mg PO Q3D 2 doses #2 tabs 01/08/24 metronidazole 500 mg tablet 500 mg PO Q12H 10 days #20 tabs 01/08/24 oxycodone-acetaminophen 5 mg-325 1 tab PO Q6H #14 tabs 01/08/24 mg tablet (Percocet) ciprofloxacin HCl 500 mg tablet 500 mg PO Q12H 10 days #20 tabs 05/04/24 (Cipro) metronidazole 500 mg tablet 500 mg PO Q8H 10 days #30 tabs 05/04/24 oxycodone-acetaminophen 5 mg-325 1 tab PO Q8H PRN pain 4 days #12 05/04/24 mg tablet (Percocet) tabs Allergies Allergy/AdvReac Type Severity Reaction Status Date / Time fentanyl Allergy Intermediate Verified 11/16/23 04:53 Sulfa (Sulfonamide Allergy Intermediate Verified 11/16/23 04:53 Antibiotics) adhesive tape AdvReac Intermediate Verified 11/16/23 04:53 Review of Systems ROS Constitutional Reports: chills; Denies: fever Cardiovascular Denies: chest pain Respiratory Denies: shortness of breath or cough Gastrointestinal Reports: abdominal pain and nausea; Denies: vomiting, diarrhea or blood in stool Genitourinary Denies: painful urination, urinary frequency or urinary urgency Musculoskeletal Denies: back pain or neck pain Integumentary/Breast Denies: rash Neurological Denies: headache PFSH PFSH Medical History (Updated 05/04/24 @ 20:47 by Lucille Mooney) Breast cancer, left breast ?C50.912 - Malignant neoplasm of unspecified site of left female breast (ICD- 10) Pulmonary embolism and infarction ?I26.99 - Other pulmonary embolism without acute cor pulmonale (ICD-10) Pulmonary embolism on right ?I26.99 - Other pulmonary embolism without acute cor pulmonale (ICD-10) Lymph node cancer ?C77.9 - Secondary and unspecified malignant neoplasm of lymph node, un specified (ICD-10) Numbness and tingling of both lower extremities ?R20.0 - Anesthesia of skin (ICD-10) ?R20.2 - Paresthesia of skin (ICD-10) 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 - Postmastectomy lymphedema syndrome (ICD-10) Rheumatoid arthritis ?M06.9 - Rheumatoid arthritis, unspecified (ICD-10) Spinal stenosis ?M48.00 - Spinal stenosis, site unspecified (ICD-10) Kidney stones ?N20.0 - Calculus of kidney (ICD-10) Heart murmur ?R01.1 - Cardiac murmur, unspecified (ICD-10) Scoliosis ?M41.9 - Scoliosis, unspecified (ICD-10) Hyperlipemia ?E78.5 - Hyperlipidemia, unspecified (ICD-10) Obesity ?E66.9 - Obesity, unspecified (ICD-10) Borderline diabetes ?R73.03 - Prediabetes (ICD-10) Breast cancer ?C50.919 - Malignant neoplasm of unspecified site of unspecified female breast (ICD-10) Edema ?R60.9 - Edema, unspecified (ICD-10) GERD (gastroesophageal reflux disease) ?K21.9 - Gastro-esophageal reflux disease without esophagitis (ICD-10) COPD (chronic obstructive pulmonary disease) ?J44.9 - Chronic obstructive pulmonary disease, unspecified (ICD-10) HTN (hypertension) ?I10 - Essential (primary) hypertension (ICD-10) Surgical History (Updated 11/16/23 @ 19:07 by Perla Ayers LPN) History of mastectomy ?Z90.10 - Acquired absence of unspecified breast and nipple (ICD-10) History of total left knee replacement ?Z96.652 - Presence of left artificial knee joint (ICD-10) History of total right knee replacement ?Z96.651 - Presence of right artificial knee joint (ICD-10) History of back surgery ?Z98.890 - Other specified postprocedural states (ICD-10) Family History Father Family history of CHF (congestive heart failure) Family history of cancer Family history of hypertension Sister Family history of stroke Mother Family history of cancer Family history of hypertension Social History Within the past year, how often did you have a drink containing alcohol: never Within the past year, how many standard drinks containing alcohol did you have on a typical day: 1 or 2 Within the past year, how often did you have six or more drinks on one occasion: never Total score: 0 Score interpretation: A score less than 3 is consistent with normal alcohol consumption. Smoking status: Never smoker Second hand tobacco smoke exposure: No Non-prescribed substance use: denies use Previous occupational history: none Known occupational exposures/hazards: No Highest level of school completed/degree received: some college, no degree Do you want help with school or training: No Are you now , , , , never or living with a partner: don't know In a typical week, how many times do you talk on the telephone with family, friends, or neighbors: 3 or more times per week How often do you get together with friends or relatives: once per week How often do you attend presybeterian or gnosticism services: never Do you belong to any clubs or organizations such as [employer] groups unions, [employer] or athletic groups, or school groups: no Total score: 1 Score interpretation: A score of less than or equal to 1 indicates the most socially isolated. Little interest or pleasure in doing things: not at all Feeling down, depressed, or hopeless: not at all Feel stressed/tense/nervous/anxious/difficulty sleeping: to some extent Life stressors: other Life stressor details: diagnosis with breast cancer Due to disability, difficulty making decisions: No Do you think of yourself as: decline to answer Gender Identity: decline to answer Exam Constitutional Vital Signs, click to edit/add: Last Vital Signs Temp 97.9 F 05/04/24 15:54 Pulse 88 05/04/24 15:54 Resp 18 05/04/24 15:54 BP 170/79 H 05/04/24 15:54 Pulse Ox 100 05/04/24 15:54 Common normals: no apparent distress and oriented x3 General appearance: cooperative HENMT Mouth: oral and palatal mucosa normal and lip normal Eye Common normals: conjunctivae normal and no scleral icterus Neck & C-Spine Common normals: supple Chest Chest: symmetrical chest wall rise Respiratory Common normals: normal respiratory effort Effort & inspection: symmetric chest movement Cardio Common normals: regular rate and regular rhythm GI Common normals: soft to palpation Auscultation: normoactive bowel sounds Palpation: tender Details: LLQ Neuro Common normals: oriented x3 and moves all extremities Sensorium/orientation: awake and alert Speech: speech normal Course Vital Signs Vital signs: Vital Signs Temperature 97.9 F 05/04/24 15:54 Pulse Rate 88 05/04/24 15:54 Respiratory Rate 18 05/04/24 15:54 Blood Pressure 170/79 H 05/04/24 15:54 Pulse Oximetry 100 05/04/24 15:54 Temperature 97.9 F 05/04/24 15:54 Pulse Rate 88 05/04/24 15:54 Respiratory Rate 18 05/04/24 15:54 Blood Pressure 170/79 H 05/04/24 15:54 Pulse Oximetry 100 05/04/24 15:54 MDM - Abdominal Pain MDM Narrative Medical decision making narrative: WBC count was 11, BUN 19, creatinine 1.42. CT scan was pending; there was a delay with the results. The patient no longer wanted to be in the ED. She left AMA. The benefits of staying and risks of leaving were explained to the patient; she declined to stay and wait for the results. She was advised prescriptions would be sent to her pharmacy for antibiotics if indicated. CT scan report was reviewed after the patient's departure. It showed acute diverticulitis. OARRS was reviewed. Prescriptions were sent to her pharmacy for Cipro, Flagyl, and Percocet. She was called an notified of the results. Differential Diagnosis Differential diagnosis: Likely abdominal pain, calculus of kidney, diverticulitis, gastroenteritis and small bowel obstruction Medical Records Attestation: I reviewed the patient's medical records. Lab Data Attestation: I reviewed the patient's lab results. Labs: Lab Results 05/04/24 Range/Units 16:21 WBC 11.0 (4.0-11.0) 10^3/uL RBC 3.92 L (4.20-5.40) 10^6/uL Hgb 12.0 (12.0-16.0) g/dL Hct 37.9 (36.0-48.0) % MCV 96.7 (81.0-99.0) fL MCH 30.6 (26.7-34.0) pg MCHC 31.7 (29.9-35.2) g/dL RDW 13.4 (11.0-15.0) % Plt Count 329 (150-450) 10^3/uL MPV 9.0 L (9.5-13.5) fL Neut % (Auto) 71.1 (43.0-75.0) % Lymph % (Auto) 9.5 L (20.5-60.0) % Valley % (Auto) 12.8 H (1.7-12.0) % Eos % (Auto) 5.8 (0.9-7.0) % Baso % (Auto) 0.5 (0.2-2.0) % Neut # (Auto) 7.8 H (1.4-6.5) 10^3/uL Lymph # (Auto) 1.0 L (1.2-3.8) 10^3/uL Valley # (Auto) 1.4 H (0.3-0.8) 10^3/uL Eos # (Auto) 0.6 (0.0-0.7) 10^3/uL Baso # (Auto) 0.1 (0.0-0.1) 10^3/uL Abs Immat Gran (auto) 0.03 (0.00-0.03) 10^3/uL Imm/Tot Granulo (auto) 0.3 (0.0-0.5) % Sodium 141 (136-145) mmol/L Potassium 4.1 (3.5-5.1) mmol/L Chloride 106 (98-107) mmol/L Carbon Dioxide 26.2 (21.0-32.0) mmol/L Anion Gap 12.9 BUN 19.0 H (7.0-18.0) mg/dL Creatinine 1.42 H (0.55-1.02) mg/dL Est GFR ( Amer) 44 L (>=60) Est GFR (Non-Af Amer) 37 L (>=60) BUN/Creatinine Ratio 13.4 Glucose 116 H (74-106) mg/dL Calcium 8.8 (8.5-10.1) mg/dL Total Bilirubin 0.6 (0.2-1.0) mg/dL AST 17 (15-37) U/L ALT 27 (14-59) U/L Alkaline Phosphatase 124 H (46-116) U/L Total Protein 6.3 L (6.4-8.2) g/dL Albumin 3.4 (3.4-5.0) g/dL Globulin 2.9 g/dL Albumin/Globulin Ratio 1.[address] scan - abdomen: Attestation: I have reviewed the pertinent imaging results. Radiologist's impression: ITS Impressions Abdomen/Pelvis CT 05/04/24 17:23 IMPRESSION: 1. Acute focal sigmoid diverticulitis. No abscess or free air perforation at this time. No complicating features. Recommend treatment and follow-up with follow-up endoscopy in approximately 2 months after symptoms have resolved. 2. Other stable chronic findings as discussed above. Electronically authenticated by: BARTOLO OQUENDO Date: 05/04/2024 21:30 Discharge Plan Discharge Stand Alone Forms: Portal Instructions Chief Complaint: Abdominal Pain Clinical Impression: Abdominal pain, Left against medical advice Patient Disposition: Left Against Medical Advice Time of Disposition Decision: 21:01 Condition: Good Mode of Transportation: Private Vehicle Prescriptions / Home Meds: New ciprofloxacin HCl [Cipro] 500 mg tablet 500 mg PO Q12H 10 Days Qty: 20 0RF metronidazole 500 mg tablet 500 mg PO Q8H 10 Days Qty: 30 0RF oxycodone-acetaminophen [Percocet] 5-325 mg tablet 1 tab PO Q8H PRN (Reason: pain) 4 Days Qty: 12 0RF No Action folic acid 1 mg tablet 1 mg PO .QD Rx Instructions: EXCEPT ON SATURDAY spironolactone [Aldactone] 25 mg tablet 25 mg PO DAILY Qty: 30 0RF Eliquis 5 mg tablet 5 mg PO Q12H 30 Days Qty: 72 0RF Rx Instructions: use 2 pills twice a day for 6 days, take 1 pill twice a day for 24 days. furosemide 20 mg tablet 40 mg PO DAILY Qty: 0 0RF metoprolol tartrate 50 mg tablet 50 mg PO BID multivitamin Tablet 1 tab PO DAILY cholecalciferol (vitamin D3) 125 mcg (5,000 unit) capsule 125 mcg PO DAILY potassium chloride 10 mEq capsule, extended release 10 meq PO DAILY methotrexate sodium 2.5 mg tablet 15 mg PO .SATURDAY losartan [Cozaar] 50 mg tablet 50 mg PO DAILY atorvastatin 40 mg tablet 40 mg PO .QHS doxycycline hyclate 100 mg tablet 100 mg PO BID 10 Days Qty: 20 0RF cefprozil 500 mg tablet 500 mg PO BID 10 Days Qty: 20 0RF oxycodone-acetaminophen [Percocet] 5-325 mg tablet 1 tab PO Q6H Qty: 14 0RF ciprofloxacin HCl [Cipro] 500 mg tablet 500 mg PO BID 10 Days Qty: 20 0RF metronidazole 500 mg tablet 500 mg PO Q12H 10 Days Qty: 20 0RF fluconazole 150 mg tablet 150 mg PO Q3D Qty: 2 0RF Print Language: Danish Referrals: Sunny Jenkins ND [Primary Care Provider] - 1 week
[2024-05-04 16:28] LABS: Basophils Absolute Auto 0.1 10^3/uL (0.0-0.1); Basophils Percent Auto 0.5 % (0.2-2.0); Eosinophils Absolute Auto 0.6 10^3/uL (0.0-0.7); Eosinophils Percent Auto 5.8 % (0.9-7.0); Hematocrit 37.9 % (36.0-48.0); Immature Granulocytes Abs Auto 0.03 10^3/uL (0.00-0.03); Immature Granulocytes Pct Auto 0.3 % (0.0-0.5); Lymphocytes Percent Auto 9.5 % (20.5-60.0); Mean Corpuscular HGB Conc 31.7 g/dL (29.9-35.2); Mean Corpuscular Hemoglobin 30.6 pg (26.7-34.0); Mean Corpuscular Volume 96.7 fL (81.0-99.0); Monocytes Absolute Auto 1.4 10^3/uL (0.3-0.8); Monocytes Percent Auto 12.8 % (1.7-12.0); Neutrophils Absolute Auto 7.8 10^3/uL (1.4-6.5); Neutrophils Percent Auto 71.1 % (43.0-75.0); Platelet Count 329 10^3/uL (150-450); Red Blood Count 3.92 10^6/uL (4.20-5.40); Red Cell Distribution Width 13.4 % (11.0-15.0)
[2024-05-04] MEDS: 0.9 % SODIUM CHLORIDE 1,000 ML 100 ML IV (16:37)
[2024-05-04 16:43] LABS: Alanine Aminotransferase 27 U/L (14-59); Albumin Globulin Ratio 1.2; Albumin Level 3.4 g/dL (3.4-5.0); Alkaline Phosphatase 124 U/L (46-116); Anion Gap 12.9; Aspartate Amino Transferase 17 U/L (15-37); BUN Creatinine Ratio 13.4; Bilirubin Total 0.6 mg/dL (0.2-1.0); Calcium 8.8 mg/dL (8.5-10.1); Carbon Dioxide 26.2 mmol/L (21.0-32.0); Chloride 106 mmol/L (98-107); Estimated GFR (African America 44 (>=60); Estimated GFR (Non-African Ame 37 (>=60); Globulin 2.9 g/dL; Glucose 116 mg/dL (74-106); Potassium 4.1 mmol/L (3.5-5.1); Sodium 141 mmol/L (136-145); Total Protein 6.3 g/dL (6.4-8.2)
--- NOTE | 2024-05-04 17:23 | CT_ITS ---
The [address] [address] Patient Name: MINAL CAPUTO MRN: [id number] date: 1955 Sex: F Assigned Patient Location: ER Current Patient Location: ED.MAIN Accession/Order Number: [id number] Exam Date: 05/04/2024 17:10 Report Date: 05/04/2024 21:30 At the request of: CAREN MAZARIEGOS Procedure: CT abdomen pelvis w con CT OF THE ABDOMEN AND PELVIS WITH CONTRAST: 05/04/2024 5:10 PM EDT CLINICAL HISTORY: Left lower quadrant pain. COMPARISONS: 01/08/2024. TECHNIQUE: Thin section axial CT images were obtained from the lung bases to the pubis symphysis. This CT exam was performed using one or more of the following dose reduction techniques: Automated exposure control, adjustment of the mA and/or kV according to patient size, or use of iterative reconstruction technique. Thin section coronal and sagittal images were reconstructed from the axial data set. All images were reviewed and interpreted. CONTRAST: 100 mL Omnipaque 300 FINDINGS: LUNG BASES: Moderate to large sliding-type hiatal hernia. Stomach displays cephalad to the left lower lobe. Stable from previous. LIVER: Hepatic steatosis. Tiny cystic lesion right hepatic lobe, too small to characterize measuring 4 mm statistically benign. Liver otherwise negative. GALLBLADDER: Normal. BILIARY TREE: No ductal dilatation. PANCREAS: Normal. SPLEEN: Normal. ADRENALS: Normal. KIDNEYS: There are 2 tiny subcentimeter cysts within the left kidney, anterior mid to lower pole unchanged dating back to 01/08/2024. Both kidneys otherwise unremarkable. No hydronephrosis. No intrarenal or ureteral calculi are seen currently. URINARY BLADDER: Grossly unremarkable. PELVIC STRUCTURES: Unremarkable. SMALL BOWEL: No evidence of obstruction, gross mass, or inflammatory change. LARGE BOWEL: There is scattered mostly descending and sigmoid diverticulosis with findings of acute focal diverticulitis within the proximal sigmoid colon left lower quadrant with some pericolonic inflammation along the mesenteric border with inflamed diverticuli and focal wall thickening. Remainder of large bowel both proximal and distal to this area otherwise unremarkable. Area of focal inflammation extends approximately 3 cm in length. No large bowel obstruction. APPENDIX: No active disease with normal appendix. LYMPH NODES: No pathologically enlarged lymph nodes identified. PERITONEUM: No intraperitoneal free air. No free intraperitoneal fluid. MESENTERY: Unremarkable. RETROPERITONEUM: The retroperitoneum is unremarkable. AORTA: Normal in caliber. BODY WALL: No body wall mass. OSSEOUS STRUCTURES: Severe levoscoliotic curvature of the lumbar spine with the lower lumbar spine fixation hardware posterior L4-5 and lower thoracic posterior fixation hardware. Fused facet joints. No acute fracture. No lytic or blastic bone lesion. CT/CT abdomen pelvis w con IMPRESSION: 1. Acute focal sigmoid diverticulitis. No abscess or free air perforation at this time. No complicating features. Recommend treatment and follow-up with follow-up endoscopy in approximately 2 months after symptoms have resolved. 2. Other stable chronic findings as discussed above. Electronically authenticated by: BARTOLO OQUENDO Date: 05/04/2024 21:30
[2024-05-04] MEDS: HEPARIN SODIUM (PORCINE) PF LOCK FLUSH 500 UNIT/5 ML SYRINGE IV (21:14)
[2024-05-04] MEDS: OXYCODONE HCL/ACETAMINOPHEN 5MG/325MG 1 TAB PO (21:15)
--- NOTE | 2024-05-04 21:54 | PC.NURSE ---
Pt left AMA while this nurse was in another patient's room Shoshana ESPANA discharged pt as well as had her sign AMA paperwork and medicated her At this time her CT results have populated, Dr. Rodriguez called and spoke with the pt giving her test results while Vonda VANCE sent prescriptions electronically to pt's pharmacy Pt made aware of this by Dr. Rodriguez
== END 2024-05-04 21:55 | disposition left against medical advice (07) ==
PROVIDERS: Nurse Practitioner Family; Emergency Provider Emergency Medicine; PCP Student in an Organized Health Care Education/Training Program
DX: R10.32 Left lower quadrant pain (principal); K57.32 Diverticulitis of large intestine without perforation or abscess without bleeding; Z53.29 Procedure and treatment not carried out because of patient's decision for other reasons
CPT/HCPCS: 36415; 74177; 80053; 85025; 99285; J1642; Q9967

== ENCOUNTER 2024-07-25 15:52 | Emergency (ER) | payer MEDICARE, OTHER, SELFPAY ==
[2024-07-25] VITALS (30 sets, daily range): BP systolic 120–176; BP diastolic 66–79; PULSE 71–101; TEMP 36.7; O2SAT 96–99; BMI 51.2
--- OUTSIDE RECORDS SUMMARY | 2024-07-25 16:04 | XMS_ITS | CCD ---
Author Organization [facility] Care Team Providers Care Multi Sensor Operator Name Role Phone DONTE TREVINO Referring Unavailable DONTE TREVINO Admitting Unavailable DONTE TREVINO Attending Unavailable ADY BRIZUELA Consulting Unavailable DONTE TREVINO Referring Unavailable DONTE TREVINO Referring Unavailable Rita Amanda Primary Care Provider Gilma DO, Janet Flaquita Unavailable Debbie Ramirez Unavailable Rita Amanda Primary Care Provider Gilma DO, Janet Flaquita Unavailable [phone] HENRIK Perez Attending Provider LENA Benson Referring Provider Gilma DO Janet G Primary Care Provider Dayanna Schumacher Unavailable Gilma, DO Janet G Primary Care Provider DO Kaylene Lilly Attending Provider [phone] DEEPA Schumacher Attending Provider [phone] Rita Amanda Primary Care Provider [phone] Gilma DO, Janet Flaquita Unavailable [phone] NO FAMILY, PHYSICIAN Primary Care Provider Unava ilable Gilma DO Janet G Primary Care Provider DO Nikko Astorga Attending Provider Karen Parrish Unavailable GABBY GREY Consulting Unavailable EMMANUEL Blakely, DR GERBER Admitting Unavailable MIS, DR PENALOZA Primary Care Unavailable EMMANUEL ., DR GERBER Attending Unavailable LUIS ., FAVIOLA Consulting Unavailable LOUIE, TAWANA Consulting Unavailable RAM, YARI Consulting Unavailable SOLARES, RAKESH Consulting Unavailable TRACI, CHRISTINE Consulting Unavailable Padma, Cristina Consulting Unavailable CUELLAR ., DR DONTE Patel Consulting Unavailable MISC, DR PENALOZA Primary Care Unavailable CUELLAR ., DR DONTE Patel Admitting Unavailable CUELLAR ., DR DONTE Patel Attending Unavailable JESSIKA, DR RICCO Anthony Consulting Unavailkathie SON, DONALDO Consulting Unavailable LAWRENCE LOPEZ Consulting Unavailable Janet Dillard DO Unavailable DO Janet Dillard Primary Care Provider DO Nikko Astorga Attending Provider [phone] Sunny Jenkins MD Primary Care Provider BYRON MOORE Referring Unavailable SUNNY JENKINS Primary Care Unavailable GABBY COBIAN Attending Unavailable SUNNY JENKINS Primary Care Unavailable MUNA ASIF Referring Unavailable Sunny Jenkins MD Primary Care Provider Yvonne Baumann RN Unavailable Mitch Neri MD Unavailable [phone] Cathy Templeton PA-C Unavailable [phone] Deepika Krueger Unavailable Unavailable PROVIDER, UNKNOWN Admitting Unavailable SUNNY JENKINS Primary Care Unavailable PROVIDER, UNKNOWN Attending Unavailable RITA AMANDA Primary Care UnavailNELL Bowman Referring Unavailable YOAN RIVAS Attending Unavailable Nona Cannon RD Unavailable Sunny Jenkins MD Primary Care Provider Sunny Jenkins MD Primary Care Provider MADAY PRIETO Attending Unavailable MITCH NERI Referring Unavailable CATHY TEMPLETON Referring Unavailable Yvonne Baumann RN Unavailable [phone] Cathy Templeton PA-C Unavailable Nia Snider RN Unavailable Unavailable Gregory Sunny HATHAWAY Primary Care Provider [phone] Rita Amanda Primary Care Provider Josef Austin Attending Unavailable Josef Austin Admitting Unavailable Gregory, Muhamid Primary Care Unavailable LEO GERARD Attending Unavailable GREGORY, MUHAMID M Referring Unavailable GREGORY, MUHAMID M Primary Care Unavailable LEO GERARD Attending Unavailable GREGORY, MUHAMID M Referring Unavailable GREGORY, MUHAMID M Primary Care Unavailable LEO GERARD Attending Unavailable GREGORY, MUHAMID M Referring Unavailable GREGORY, MUHAMID M Primary Care Unavailable GREGORY, MUHAMID M Attending Unavailable GREGORY, MUHAMID M Referring Unavailable GREGORY, MUHAMID M Primary Care Unavailable GREGORY, MUHAMID M Attending Unavailable GREGORY, MUHAMID M Referring Unavailable GREGORY, MUHAMID M Primary Care Unavailable GREGORY, MUHAMID M Attending Unavailable GREGORY, MUHAMID M Referring Unavailable GREGORY, MUHAMID M Primary Care Unavailable BRIANNA RENNER Referring Unavailable GREGORY, MUHAMID M Primary Care Unavailable CATHY TEMPLETON Referring Unavailable GREGORY, MUHAMID M Primary Care Unavailable GREGORY, MUHAMID M Referring Unavailable GREGORY, MUHAMID M Primary Care Unavailable OLLIE APONTE Attending Unavailable GREGORY, MUHAMID M Referring Unavailable GREGORY, MUHAMID M Primary Care Unavailable OLLIE APONTE Referring Unavailable GREGORY, MUHAMID M Primary Care Unavailable GREGORY, MUHAMID M Attending Unavailable GREGORY, MUHAMID M Referring Unavailable GREGORY, MUHAMID M Primary Care Unavailable MADYSONAMCHARLEE MITCH Referring Unavailable GREGORY, MUHAMID M Primary Care Unavailable FRANCESCO MITCH Referring Unavailable GREGORY, MUHAMID M Primary Care Unavailable GREGORY, MUHAMID M Attending Unavailable GREGORY, MUHAMID M Referring Unavailable GREGORY, MUHAMID M Primary Care Unavailable GREGORY, MUHAMID M Referring Unavailable GREGORY, MUHAMID M Primary Care Unavailable GREGORY, MUHAMID M Referring Unavailable GREGORY, MUHAMID M Primary Care Unavailable GREGORY, MUHAMID M Primary Care Unavailable JOHANNE FITZGERALD Referring Unavailable GREGORY, MUHAMID M Primary Care Unavailable GREGORY, MUHAMID M Primary Care Unavailable GREGORY, MUHAMID M Primary Care Unavailable FITZGERALD, JOHANNE Referring Unavailable FITZGERALDPEACEA Attending Unavailable GREGORY, MUHAMID M Primary Care Unavailable MADYSONAMLOU, MITCH Attending Unavailable GREGORY, MUHAMID M Primary Care Unavailable KARAMLOU, MITCH Referring Unavailable GREGORY, MUHAMID M Primary Care Unavailable TREASURE, RITA CHA Primary Care Unavailabl e TREASURE, RITA CHA Primary Care Unavailabl e MENDOZA YANG Attending Unavailable CATHY TEMPLETON Attending Unavailable KARAMLOU, MITCH Referring Unavailable GREGORY, MUHAMID M Primary Care Unavailable KARAMLOU, MITCH Referring Unavailable GREGORY, MUHAMID M Primary Care Unavailable KARAMLOU, MITCH Attending Unavailable KARAMLOU, MITCH Referring Unavailable GREGORY, MUHAMID M Primary Care Unavailable KARAMLOU, MITCH Referring Unavailable GREGORY, MUHAMID M Primary Care Unavailable KARAMLOU, MITCH Referring Unavailable GREGORY, MUHAMID M Primary Care Unavailable GREGORY, MUHAMID M Primary Care Unavailable FITZGERALD, JOHANNE Referring Unavailable FITZGERALDPEACEA Attending Unavailable FITZGERALD, JOHANNE Admitting Unavailable GREGORY, MUHAMID M Primary Care Unavailable FITZGERALD, JOHANNE Referring Unavailable PHILLIP FITZGERALDAPURNA Attending Unavailable FITZGERALD, JOHANNE Admitting Unavailable RITA AMANDA Primary Care Unavailabl e AL-HILLI, HEATHER Attending Unavailable AL-HILLI, HEATHER Admitting Unavailable TREASURERITA SWANN CHA Primary Care Unavailabl e AL-HILLI, HEATHER Attending Unavailable AL-HILLI, HEATHER Admitting Unavailable AL-HILLI, HEATHER Referring Unavailable GREGORY, MUHAMID M Primary Care Unavailable GREGORY, MUHAMID M Primary Care Unavailable BRIANNA RENNER Attending Unavailable GREGORY, MUHAMID M Primary Care Unavailable EV CAI Attending Unavailable AL-HILLI, HEATHER Referring Unavailable GREGORY, MUHAMID M Primary Care Unavailable GREGORY, MUHAMID M Primary Care Unavailable FITZGERALD, JOHANNE Referring Unavailable KARAMLOU, MITCH Attending Unavailable AL-HILLI, HEATHER Referring Unavailable DANTE REHMAN Attending Unavailable GREGORY, MUHAMID M Primary Care Unavailable GREGORY, MUHAMID M Primary Care Unavailable MENDOZA YANG Attending Unavailable GREGORY, MUHAMID M Primary Care Unavailable JOSEF AUSTIN Attending Unavailable GREGORY, MUHAMID M Primary Care Unavailable RITA AMANDA Primary Care Unavailabl e EV CAI Attending Unavailable RITA AMANDA Primary Care Unavailabl e AL-CHLOEI, HEATHER Referring Unavailable DANTE REHMAN Attending Unavailable GREGORY, MUHAMID M Primary Care Unavailable JOSEF AUSTIN Attending Unavailable GREGORY, MUHAMID M Primary Care Unavailable JOSEF AUSTIN Attending Unavailable AL-HILLI, HEATHER Attending Unavailable GREGORY, MUHAMID M Primary Care Unavailable MADYSON VILLAFUERTEUNAPINKY Referring Unava ilable GREGORY, MUHAMID M Primary Care Unavailable GREGORY, MUHAMID M Primary Care Unavailable GREGORY, MUHAMID M Primary Care Unavailable MITCH NERI Attending Unavailable CATHY TEMPLETON Referring Unavailable GREGORY, MUHAMID M Primary Care Unavailable NONA CANNON Attending Unavailabl e GREGORY, MUHAMID M Primary Care Unavailable FRANCESCO MITCH Referring Unavailable GREGORY, MUHAMID M Primary Care Unavailable GREGORY, MUHAMID M Primary Care Unavailable GABBY COBIAN Attending Unavailable GREGORY, MUHAMID M Primary Care Unavailable BRIANNA RENNER Attending Unavailable GREGORY, MUHAMID M Primary Care Unavailable GREGORY, MUHAMID M Primary Care Unavailable GREGORY, MUHAMID M Primary Care Unavailable GREGORY, MUHAMID M Primary Care Unavailable GREGORY, MUHAMID M Primary Care Unavailable GREGORY, MUHAMID M Primary Care Unavailable GREGORY, MUHAMID M Primary Care Unavailable LASHIN, OSSAMA M Referring Unavailable LASHIN, OSSAMA M Attending Unavailable GREGORY, MUHAMID M Primary Care Unavailable RADHA NERIRA Attending Unavailable GABBY COBIAN Attending Unavailable GREGORY, MUHAMID M Primary Care Unavailable GREGORY, MUHAMID M Primary Care Unavailable MITCH NERI Attending Unavailable CARAU, MITCH Referring Unavailable GREGORY, MUHAMID M Primary Care Unavailable MADYSONAMLOU MITCH Referring Unavailable GREGORY, MUHAMID M Primary Care Unavailable GREGORY, MUHAMID M Primary Care Unavailable GREGORY, MUHAMID M Primary Care Unavailable GREGORY, MUHAMID M Primary Care Unavailable GREGORY, MUHAMID M Primary Care Unavailable GREGORY, MUHAMID M Primary Care Unavailable GREGORY, MUHAMID M Primary Care Unavailable MITCH NERI Attending Unavailable GREGORY, MUHAMID M Primary Care Unavailable NONA CANNON Attending Unavailabl e GREGORY, MUHAMID M Primary Care Unavailable GREGORY, MUHAMID M Primary Care Unavailable MENDOZA YANG Referring Unavailable MITCH NERI Attending Unavailable TREASURERITA SWANN CHA Primary Care Unavailabl e AL-HILLI, HEATHER Referring Unavailable TREASURERITA CHA Primary Care Unavailabl e AL-HILLI, HEATHER Referring Unavailable TREASURE, RITA CHA Primary Care Unavailabl e AL-HILLI, HEATHER Referring Unavailable GREGORY, MUHAMID M Primary Care Unavailable CATHY TEMPLETON Attending Unavailable GREGORY, MUHAMID M Primary Care Unavailable GREGORY, MUHAMID M Primary Care Unavailable GREGORY, MUHAMID M Primary Care Unavailable RAKESH PALMA Attending Unavailable LIA, JOHANNE Referring Unavailable GREGORY, MUHAMID M Primary Care Unavailable GREGORY, MUHAMID M Primary Care Unavailable GREGORY, MUHAMID M Primary Care Unavailable MITCH NERI Attending Unavailable GREGORY, MUHAMID M Primary Care Unavailable GREGORY, MUHAMID M Primary Care Unavailable GREGORY, MUHAMID M Primary Care Unavailable JOSEF AUSTIN Attending Unavailable GREGORY, MUHAMID M Primary Care Unavailable GREGORY, MUHAMID M Primary Care Unavailable GREGORY, MUHAMID M Primary Care Unavailable JHOANNE FITZGERALD Attending Unavailable GREGORY, MUHAMID M Primary Care Unavailable GREGORY, MUHAMID M Primary Care Unavailable GREGORY, MUHAMID M Primary Care Unavailable LIA, JOHANNE Referring Unavailable RAKESH PALMA Attending Unavailable GREGORY, MUHAMID M Primary Care Unavailable RAKESH PALMA Attending Unavailable LIA, JOHANNE Referring Unavailable GREGORY, MUHAMID M Primary Care Unavailable SANDY MCGREGOR Referring Unavailable GREGORY, MUHAMID M Primary Care Unavailable RAKESH PALMA Attending Unavailable JOHANNE FITZGERALD Referring Unavailable GREGORY, MUHAMID M Primary Care Unavailable FRANCESCO MITHC Referring Unavailable GREGORY, MUHAMID M Primary Care Unavailable JOSEF AUSTIN Attending Unavailable FRANCESCO MITCH Referring Unavailable GREGORY, MUHAMID M Primary Care Unavailable GREGORY, MUHAMID M Primary Care Unavailable NORMANJOSEF Attending Unavailable GREGORY, MUHAMID M Primary Care Unavailable SELF Referring Unavailable KARAMLOU, MITCH Attending Unavailable GREGORY, MUHAMID M Primary Care Unavailable GREGORY, MUHAMID M Primary Care Unavailable KARAMLOU, MITCH Referring Unavailable SANDY MCGREGOR Attending Unavailable GREGORY, MUHAMID M Primary Care Unavailable KARAMLOU, MITCH Referring Unavailable GREGORY, MUHAMID M Primary Care Unavailable GREGORY, MUHAMID M Primary Care Unavailable SELF Referring Unavailable KARAMLOU, MITCH Referring Unavailable GREGORY, MUHAMID M Primary Care Unavailable GREGORY, MUHAMID M Primary Care Unavailable FITZGERALD, JOHANNE Referring Unavailable Unavailable Unavailable Unavailable Allergies Allergy Classification Reported Allergen(s) Allergy Type Date of Onset Reaction(s) Facility Opioid [facility]onists (4 sources) fentaNYL Drug Allergy 04-01-20 18 Intolerance [facility] Sulfonamides (antibiotic) (4 sources) Sulfonamides (Antibiotic) Drug Allergy 03-08-20 07 [facility] (20 sources) fentaNYL; Translations: [FENTANYL] Drug Allergy 04-01-20 18 Other: See Comments, Intolerance [facility] (1 source) Penicillins; Translations: [PENICILLINS] Propensity to adverse reactions to drug (disorder) 03-08-20 07 [facility] (20 sources) Sulfonamides (Antibiotic); Translations: [SULFA (SULFONAMIDE ANTIBIOTICS)] Propensity to adverse reactions to drug (disorder) 03-08-20 07 Unknown, Rash [facility] (3 sources) OTHER; Translations: [OTHER] Propensity to adverse reactions (disorder) 05-06-20 07 [facility] (20 sources) ADHESIVE BANDAGES [Other] Propensity to adverse reactions 05-06-[address] [facility] Work Phone: (5 sources) Sulfacetamide Drug Allergy 01-06-20 24 [facility] (1 source) Adhesive bandage Drug allergy (disorder) 12-04-19 20 [facility] (1 source) Sulfonamides (Antibiotic) Drug allergy (disorder) 12-04-19 [facility] (20 sources) Adhesive agent; Translations: [adhesive] Allergy to substance 02-29-20 23 Other (See Comments) [facility] (20 sources) Adhesive Tape-Silicones; Translations: [ADHESIVE TAPE-SILICONES] Drug Intolerance 07-29-20 Rash [facility] Work Phone: (1 source) Sulfacetamide Drug Allergy 01-06-20 24 [facility] Medications Current Medications Medication Drug Class(es) Dates Sig (Normalized) Sig (Original) acetaminophen 500 mg oral tablet (19 sources) Start: 07-16-2023 End: 09-01-2023 take 2 [...] hrs (includes Tylenol/Acetaminophen in other medications e.g. [facility]). [id number] 200 actuat albuterol 0.09 mg/actuat metered dose [...] directed Inhalation every 6 hrs Mar, Active anastrozole 1 mg oral tablet (20 sources) Aromatase Inhibitor Start: 04-21-2024 End: 07-20-2024 take 1 tablet by mouth once daily anastrozole (ARIMIDEX) 1 mg tablet TAKE 1 TABLET BY MOUTH EVERY DAY 90 tablet 07/20/2024 Active apixaban 5 mg oral tablet (20 sources) Factor Xa Inhibitor Start: 11-11-2023 End: 06-10-2024 take 1 tablet by mouth in the morning, then take 1 tablet by mouth at bedtime apixaban (ELIQUIS) 5 mg tablet Indications: 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 (CMS-HCC) Take 1 tablet (5 mg total) by mouth in the morning and 1 tablet (5 mg total) before bedtime. Do all this for 180 days. 180 tablet 1 12/13/2023 06/10/2024 Active Start: 11-05-2023 End: 12-03-2023 take 2 tablets by mouth twice daily, then take 1 tablet by mouth twice daily apixaban (ELIQUIS DVT-PE TREAT 30D START) 5 mg (74 tabs) Take 2 tablets (10 mg) by mouth twice daily for 7 days. Then take 1 tablet (5 mg) by mouth twice daily for 23 days 74 tablet 0 11/05/2023 12/03/2023 Discontinued (Duplicate Entry) Start: 11-05-2023 take 2 tablets by mo [facility] twice daily, then take 1 tablet by [...] for 23 days [facility] 81 mg [...] eamon twice daily for 28 days. atorvastatin 10 mg oral tablet (20 sources) HMG-CoA Reductase Inhibitor Start: 01-06-20 take 40 mg by mouth at bedtime Atorvastatin Active 40 MG PO Bedtime January 06, 2024 10:24am Start: 05-14-2023 End: 11-01-2023 take 1 tablet by mouth in the morning atorvastatin (LIPITOR) 40 mg tablet Indications: ASCVD (arteriosclerotic cardiovascular disease) Take 1 tablet (40 mg total) by mouth in the morning. 90 tablet 2 11/01/2023 Active Start: 02-28-2023 End: 01-06-2024 take 10 mg by mouth at bedtime Atorvastatin Discontinued 10 MG PO Bedtime February 28, 2023 12:00am January 06, 2024 10:27am Start: 12-08-2021 End: 06-14-2022 take 1 tablet by mouth once daily atorvastatin (LIPITOR) 20 mg tablet Take 1 tablet by mouth once daily. 30 tablet 2 03/16/2022 Active Comment on above: Take 20 mg by mouth once daily. Take 1 tablet by eamon once daily. benoxinate hydrochloride 4 mg/ml / fluorescein sodium 3 mg/ml ophthalmic solution (5 sources) Diagnostic Dye Start: 07-14-2024 End: 07-14-2024 fluorescein-benoxi fela 0.3-0.4 % 1 Drop (FLURESS) Start: 06-23-2024 End: 06-23-2024 fluorescein-benoxinate 0.3-0 .4 % 1 Drop (FLURESS) Start: 06-18-2024 End: 06-18-2024 fluorescein-benoxinate 0.3-0 .4 % 1 Drop (FLURESS) Start: 06-09-2024 End: 06-09-2024 fluorescein-benoxinate 0.3-0 .4 % 1 Drop (FLURESS) benzonatate 100 mg oral capsule (2 sources) Non-narcotic Antitussive Start: 12-03-2022 take 1 capsule by mouth every eight hours Tessalon Perles 100 MG 1 capsule as needed Orally Three times a day for 7 days Nov, Active cefdinir 300 mg oral capsule (1 source) Cephalosporin Antibacterial Start: 10-09-2023 End: 10-16-2023 take 1 capsule by mouth in the morning, then take 1 capsule by mouth at bedtime cefDINIR (OMNICEF) 300 mg capsule Take 1 capsule (300 mg total) by mouth in the morning and 1 capsule (300 mg total) before bedtime. Do all this for 7 days. 14 capsule 0 10/09/2023 10/16/2023 Active cholecalciferol 0.125 mg oral tablet (20 sources) Vitamin D Start: 02-28-2023 take 1 tablet by mouth once daily Cholecalciferol (Vitamin D3) (Vitamin D3) 125 mcg (5,000 unit) Tablet Active 125 MCG PO Daily February 28, 2023 12:00am take 1 tablet by mouth in the mo rning cholecalciferol, vitamin D3, 5,000 units tablet Take 1 tablet (5,000 Units total) by mouth in the morning. Active take 1 tablet by mouth once ankur y cholecalciferol (VITAMIN D-3) 5,000 unit tab Take 5,000 Units by mouth once daily. Active dexamethasone 4 mg oral tablet (11 sources) Corticosteroid Start: 10-22-2023 End: 11-07-2023 dexAMETHasone (DECADRON) 4 mg tablet Take 1 tablet by mouth two times a day with meals for 2 days. Day 1 and 2 after chemo only 4 tablet 3 10/22/2023 11/07/2023 Active Start: 12-07-2022 DEXAMETHASONE Nov, 10 mg Comment on above: Take 1 tablet by eamon th two times a day with meals for 2 days. Day 1 and 2 after chemo only dextromethorphan hydrobromide 1.5 mg/ml / pyrilamine maleate 1.5 mg/ml oral solution (2 sources) Uncompetitive K-owtlfw-V-aspartate Receptor Antagonist, Sigma-1 Agonist Start: 06-17-2022 [place] DM 7.5-7.5 MG/5ML 10 ml Orally every 6-8 hours as needed for 8 days May, Active Start: 04-25-2019 [place] DM 7.5- 7.5 MG/5ML 10 ml Orally every 6-8 hours as needed for 8 days Mar, Active esomeprazole 20 mg delayed release oral capsule (20 sources) Proton Pump Inhibitor Start: 02-28-2023 take 1 capsule by mouth at bedtime Esomeprazole Magnesium (Nexium) 20 mg Capsule,Delayed Release(Dr/Ec) Active 20 MG PO Bedtime February 28, 2023 12:00am take 20 mg by mouth once daily e someprazole magnesium (NEXIUM ORAL) Take 20 mg by mouth once daily. Active NexIUM Active Comment on above: Take 20 mg by mouth once daily. fluconazole 150 mg oral tablet (20 sources) Azole Antifungal Start: 01-06-2024 End: 02-17-2024 fluconazole (DIFLUCAN) 150 mg tablet TAKE 1 TABLET BY MOUTH EVERY 3 DAYS 01/06/2024 Active Start: 01-06-2024 take 150 mg by mouth once ankur y Fluconazole Active 150 MG PO Daily January 06, 2024 12:00am Start: 11-27-2023 End: 01-14-2024 fluconazole (DIFLUCAN) 100 m g tablet Take 150 mg by mouth as directed. Every 3 days 0 11/27/2023 01/14/2024 Discontinued Start: 11-27-2023 End: 12-11-2023 take 1 tablet by mouth in the morning fluconazole (DIFLUCAN) 100 mg tablet TAKE 1 TABLET (100 MG TOTAL) BY MOUTH IN THE MORNING FOR 14 DAYS. 0 11/27/2023 Active Comment on above: TAKE 1 TABLET (100 M G TOTAL) BY MOUTH IN THE MORNING FOR 14 DAYS. fluticasone propionate 0.05 mg/actuat metered dose nasal spray (11 sources) Corticosteroid Start: 08-12-20 End: 10-09-19 take 1 spray(s) nasal route in the morning fluticasone propionate (FLONASE) 50 mcg/actuation nasal spray SPRAY 1 SPRAY INTO EACH NOSTRIL IN THE MORNING 24 mL 1 10/09/2023 Active folic acid 1 mg oral tablet (20 sources) Start: 06-05-20 End: 03-03-20 take 1 tablet by mouth once daily in the morning folic acid (FOLVITE) 1 mg tablet TAKE 1 TABLET BY MOUTH IN THE MORNING. EXCEPT THE DAYS OF TAKING METHOTREXATE. 90 tablet 1 12/31/2023 Active Comment on above: Take 1 mg by mouth o nce daily. furosemide 20 mg oral tablet (20 sources) Loop Diuretic Start: 12-13-19 take 1 tablet by mouth twice daily before mealtime furosemide (LASIX) 20 mg tablet Indications: Edema, unspecified type Take 1 tablet (20 mg total) by mouth 2 (two) times a day before meals. 180 tablet 1 12/13/2023 Active Start: 11-14-2023 End: 11-28-2023 take 1 tablet by mouth twice daily before mealtime furosemide (LASIX) 40 mg tablet Indications: Diuresis Take 1 tablet (40 mg total) by mouth 2 (two) times a day before meals for 14 days. 28 tablet 0 11/14/2023 11/28/2023 Active Start: 11-13-2023 take 2 tablets by mo [facility] once daily furosemide (LASIX) 20 mg tablet Take 2 tablets (40 mg total) by mouth daily. 90 tablet 3 11/13/2023 Active Start: 03-13-2018 End: 11-11-2023 take 1 tablet by mouth once daily furosemide (LASIX) 20 mg tablet Take 20 mg by mouth once daily. 03/13/2018 Active Start: 03-13-2018 take 1 tablet by eamon once daily furosemide (LASIX) 40 mg tablet Take 40 mg by mouth once daily. 0 03/13/2018 Active Comment on above: Take 40 mg by mouth once daily. 80 mg every other day. Take 40 mg by mouth once daily. lactobacillus acidophilus [id number] unt oral tablet (20 sources) Lactobacillus ac idophilus 500 million cell tablet Take by mouth daily. Active End: 03-03-2024 Lactobacillus acidophilus (A CIDOPHILUS ORAL) Take 20 Billion Units by mouth once daily. 03/03/2024 Discontinued (Discontinued by Patient) End: 03-03-2024 Lactobacillus acidophilus (A CIDOPHILUS ORAL) Take 20 Billion Units by mouth once daily. 0 03/03/2024 Discontinued (Discontinued by Patient) Lactobacillus ac idophilus (ACIDOPHILUS ORAL) Take 20 Billion Units by mouth once daily. 0 Active letrozole 2.5 mg oral tablet (20 sources) Aromatase Inhibitor Start: 06-28-2023 End: 06-22-2024 take 1 tablet by mouth once daily letrozole (FEMARA) 2.5 mg chemo tablet Take 1 tablet by mouth daily 90 tablet 3 06/28/2023 06/22/2024 Active Comment on above: Take 1 tablet by eamon once daily. losartan potassium 50 mg oral tablet (20 sources) Angiotensin 2 Receptor Rajan Start: 07-22-2024 take 1 tablet by mouth in the morning losartan (COZAAR) 50 mg tablet Indications: Hypertension, unspecified type Take 1 tablet (50 mg total) by mouth in the morning. 180 tablet 2 07/22/2024 Active Start: 08-24-2021 End: 07-22-2024 take 1 tablet by mouth in the morning losartan (COZAAR) 50 mg tablet Indications: Hypertension, unspecified type Take 1 tablet (50 mg total) by mouth in the morning. 180 tablet 2 01/28/2024 07/22/2024 Discontinued (Reorder) Comment on above: Take 50 mg by mouth once daily. methotrexate 2.5 mg/ml oral solution (20 sources) Folate Analog Metabolic Inhibitor Start: take 2.5 mg by mouth every week Methotrexate Active 2.5 MG PO every week January 06, 2024 12:00am Start: 10-08-2023 methotrexate 2 .5 mg chemo tablet TAKE 6 TABLETS ONCE A WEEK. 6 tablet 10/08/2023 Active Start: 07-22-2023 End: 03-03-2024 methotrexate 2.5 mg tablet T xiao 15 mg by mouth every Saturday. 07/22/2023 03/03/2024 Discontinued (Discontinued by Patient) Start: 07-22-2023 take 6 tablets by mo [facility] every week methotrexate 2.5 mg chemo tablet TAKE 6 TABLETS BY MOUTH ONCE WEEKLY 72 tablet 1 07/22/2023 Active Start: 07-22-2023 take 1 tablet [address] [facility] six times weekly methotrexate 2.5 mg tablet [...] oral tablet (20 sources) beta-Adrenergic Rajan Start: 4 End: 4 take 1 tablet by mouth in the morning, then take 1 tablet by mouth at bedtime metoprolol tartrate (LOPRESSOR) 50 mg tablet Indications: Hypertension, unspecified type Take 1 tablet (50 mg total) by mouth in the morning and 1 tablet (50 mg total) before bedtime. 180 tablet 2 06/04/2024 Active Start: 02-28-2023 take 50 mg by mouth twice ankur y Metoprolol Tartrate Active 50 MG PO Twice [...] sources) Multivitamin Otto lts - Orally Active MULTIVITAMIN ORAL (20 sources) take 1 dose by mouth once daily MULTIVITAMIN ORAL Take 1 Dose by mouth once daily. Active take 1 dose by mouth once daily MULTIVITAMIN ORAL Take 1 Dose by mouth once daily. 0 Active MULTIVITAMIN ORA L Take by mouth. 0 Suspended MULTIVITAMIN ORA L Take by mouth. 0 Active Comment on above: Take by mouth. Take 1 Dose by mouth once daily. Multivitamin preparation (2 sources) Start: 02-29-20 23 take 1 tablet by mouth once daily Multivitamin Active 1 TAB PO Daily February 28, 2023 12:00am naproxen 500 mg oral tablet (20 sources) Nonsteroidal Anti-inflammatory Drug Start: 04-13-20 24 End: 07-16-20 24 take 1 tablet by mouth at bedtime naproxen (NAPROSYN) 500 mg tablet Indications: Hip pain, unspecified laterality TAKE 1 TABLET (500 MG TOTAL) BY MOUTH IN THE MORNING AND BEFORE BEDTIME 60 tablet 2 07/16/2024 Active Start: 03-19-2022 take 1 tablet by eamon th twice daily as needed naproxen (NAPROSYN) 500 mg tablet Indications: Cervical disc disorder with radiculopathy Take 1 tablet by mouth twice daily as needed. Take with food. 60 tablet 1 03/19/2022 Active NAPROXEN ORAL Ta ke by mouth two times a day. Active NAPROXEN ORAL Ta ke by mouth two times a day. 0 Active Comment on above: Take 1 tablet by eamon th twice daily as needed. Take with food. Nebulizer Machine & Supplies (1 source) Start: Nebulizer Machine & Supplies As directed Mar, Active nystatin 100 unt/mg / triamcinolone acetonide 0.001 mg/mg topical ointment (17 sources) Polyene Antifungal, Corticosteroid Start: nystatin-triamcinol one (MYCOLOG II) ointment Indications: Jessica infection Apply 1 Application topically in the morning and 1 Application before bedtime. 30 g 05/14/2023 Active pantoprazole 20 mg delayed release oral tablet (1 source) Proton Pump Inhibitor Start: End: take 1 tablet by mouth once daily [...] 10 mL injection (DEFINITY) (16 sources) Start: End: perflutren lipid microspheres 1.3 mL in NaCl (PF) 0.9% 10 mL injection (DEFINITY) polyethylene glycol 3350 102750 mg / potassium chloride 2970 mg / sodium bicarbonate 6740 mg / sodium chloride 5860 mg / sodium sulfate 98177 mg powder for oral solution (1 source) Osmotic Laxative Start: End: peg 3350-Electrolytes (GOLYTELY) 236-22.74-6.74 -5.86 gram suspension Indications: Screening for colon cancer Take 4,000 mL by mouth one time only for 1 dose. Refer to printed prep instructions from your provider. 4000 mL 0 09/19/2022 09/19/2022 Active Comment on above: Take 4,000 mL by eamon th one time only for 1 dose. Refer to printed prep instructions from your provider. microencapsulated potassium chloride 10 meq extended release oral tablet (20 sources) Start: End: take 1 tablet by mouth in the morning KLOR-CON M10 10 mEq CR tablet Indications: Edema, unspecified type TAKE 1 TABLET (10 MEQ TOTAL) BY MOUTH IN THE MORNING AND 1 TABLET (10 MEQ TOTAL) BEFORE BEDTIME. 180 tablet 1 06/21/2024 Active Start: 11-14-2023 End: 11-14-2023 take 1 tablet by mouth in the morning potassium chloride (K-TAB,KLOR-CON) 10 MEQ CR tablet Take 1 tablet (10 mEq total) by mouth in the morning and 1 tablet (10 mEq total) before bedtime. 30 tablet 2 11/14/2023 Active Start: 02-28-2023 take 10 mEq by mouth once daily Potassium Chloride Active 10 MEQ PO Daily February 28, 2023 12:00am take 1 tablet by eamon twice daily potassium chloride (K-TAB) 10 mEq tablet Take 10 mEq by mouth twice daily. 0 Active take 1 capsule by mo [facility] every twenty-four hours Potassium Chloride ER 10 MEQ 1 tablet with food Orally Once a day for 90 Active Comment on above: Take 10 mEq by mouth twice daily. Take 10 mEq by mouth once daily. prednisoLONE acetate 10 mg/ml ophthalmic suspension (20 sources) Corticosteroid Start: 06-02-2024 prednisoLONE acetate (PRED FORTE) 1 % ophthalmic suspension Use 1 Drop in the right eye as directed. Starting TOMORROW place one drop in operative eye four times a day. 06/17/2024 Active predniSONE 5 mg oral tablet (20 sources) Start: 06-10-2024 predniSONE 5 mg tablets,dose pack Indications: Seropositive rheumatoid arthritis (CMS-HCC) , Hip pain, unspecified laterality , Polyarthralgia One tab in the morning and one evening in the evening. 60 each 06/10/2024 Active Start: 10-07-2023 End: 10-23-2023 take 3 tablets by mouth once daily, [...] Start: 12-03-2022 take 1 tablet by eamon every twelve hours prednisone 20 MG 1 tablet Orally BID for 5 days Nov, Active Start: 09-26-2018 End: 03-19-2022 predniSONE (DELTASONE) 10 mg tablet Comment on above: Take 3 tablets by mo [facility] once daily for 4 days, THEN 2 tablets once daily for 4 days, THEN 1 tablet once daily for 4 days, THEN 0.5 tablets once daily for 4 days. ribociclib (4 sources) Start: Ribociclib 400 mg/day (200 mg X 2) tablets (KISQALI) Indications: Invasive lobular carcinoma of breast in female (HCC) Take 2 tablets (400 mg) by mouth once daily for 21 days. Then take a 7-day rest period to complete a 28-day treatment cycle. Discard after 60 days from fill date. 21 tablet 3 07/16/2024 Active 125 ml sodium chloride 9 mg/ml prefilled syringe (16 sources) Start: End: sodium chloride 0.9 % (flush) 10 mL (BD POSIFLUSH) spironolactone 25 mg oral tablet (20 sources) Aldosterone Antagonist Start: take 1 tablet by mouth in the morning spironolactone (ALDACTONE) 25 mg tablet Indications: Edema, unspecified type Take 1 tablet (25 mg total) by mouth in the morning. 90 tablet 2 12/13/2023 Active Comment on above: Take 1 tablet by eamon th every afternoon. triamcinolone acetonide 5 mg/ml topical cream (20 sources) Corticosteroid Start: 023 triamcinolone (KENALOG) 0.5 % cream Indications: Contact [...] (3 sources) take 1 tablet by eamon th once daily Vitamin D3 125 MCG (5000 UT) 1 tablet Orally Once a day Active Vitamin D3 18445 UNIT (1 source) Vitamin D3 33469 UNIT 1 tablet Orally Active Completed/Discontinued Medications Medication Drug Class(es) Dates Sig (Normalized) Sig (Original) abemaciclib 100 mg oral tablet (20 sources) Start: 06-03-2024 End: 07-16-2024 take 1 tablet by mouth twice daily abemaciclib (VERZENIO) 100 mg tablet Take 1 tablet (100 mg) by mouth two times a day. 60 tablet 5 06/03/2024 07/16/2024 Discontinued Start: 04-21-2024 End: 06-03-2024 take 1 tablet by mouth twice daily abemaciclib (VERZENIO) 150 mg tablet Take 1 tablet (150 mg) by mouth two times a day. 56 tablet 5 04/21/2024 06/03/2024 Discontinued betamethasone 0.5 mg/ml / clotrimazole 10 mg/ml topical cream (18 sources) Azole Antifungal, Corticosteroid Start: 11-27-2023 End: 01-14-2024 clotrimazole-betamethasone (LOTRISONE) cream two times a day. 0 11/27/2023 01/14/2024 Discontinued (Discontinued by Patient) Start: 11-27-2023 End: 12-11-2023 clotrimazole-betamethasone ( LOTRISONE) cream Apply 1 Application topically in the morning and 1 Application before bedtime. Do all this for 14 days. Apply to affected area 2 times daily. 15 g 1 11/27/2023 12/11/2023 Active Comment on above: two times a day. cefprozil 500 mg oral tablet (3 sources) Cephalosporin Antibacterial Start: 11-19-19 End: 12-03-19 take 1 tablet by mouth every twelve hours cefprozil (CEFZIL) 500 mg tablet Take 1 tablet by mouth every 12 hours. 0 11/19/2023 12/03/2023 Discontinued (Discontinued by Patient) Comment on above: Take 1 tablet by eamon th every 12 hours. cefuroxime 500 mg oral tablet (2 sources) Cephalosporin Antibacterial Start: 08-12-20 take 1 tablet by mouth every twelve hours Cefuroxime Axetil 500 MG 1 tablet Orally every 12 hrs for 7 days Jul, Not-Taking cephalexin 500 mg oral capsule (4 sources) Cephalosporin Antibacterial Start: 01-06-20 End: 01-14-20 cephALEXin (KEFLEX) 500 mg capsule cetirizine hydrochloride 10 mg oral tablet (20 sources) Histamine-1 Receptor Antagonist Start: 10-09-19 End: 01-14-20 take 1 tablet by mouth in the morning cetirizine (ZYRTEC) 10 mg tablet TAKE 1 TABLET (10 MG TOTAL) BY MOUTH IN THE MORNING 0 10/09/2023 01/14/2024 Discontinued (Discontinued by Patient) Comment on above: TAKE 1 TABLET (10 MG TOTAL) BY MOUTH IN THE MORNING ciprofloxacin 500 mg oral tablet (20 sources) Quinolone Antimicrobial Start: 01-08-20 End: 05-19-20 take 1 tablet by mouth every twelve hours ciprofloxacin HCl (CIPRO) 500 mg tablet Take 1 tablet by mouth every 12 hours. 01/08/2024 02/17/2024 Discontinued (Course of therapy completed) Start: 11-05-2023 End: 11-12-2023 take 1 tablet by mouth twice daily ciprofloxacin HCl (CIPRO) 500 mg tablet Take 1 tablet by mouth two times a day for 7 days. 14 tablet 0 11/05/2023 11/12/2023 Active Comment on above: Take 1 tablet by eamon two times a day for 7 days. dexAMETHasone 10 mg in NaCl 0.9% 50 mL (DECADRON) (1 source) Start: 12-31-19 End: 12-31-19 dexAMETHasone 10 mg in NaCl 0.9% 50 mL (DECADRON) diphenhydrAMINE (1 source) Histamine-1 Receptor Antagonist Start: 12-31-19 End: 12-31-19 diphenhydrAMINE 25 mg injection (BENADRYL) doxycycline hyclate 100 mg oral tablet (5 sources) Tetracycline-class Drug Start: 11-19-19 End: 12-03-19 take 1 tablet by mouth every twelve hours doxycycline (VIBRA-TABS) 100 mg tablet Take 1 tablet by mouth every 12 hours. 0 11/19/2023 12/03/2023 Discontinued (Discontinued by Patient) Start: 12-07-2022 take 1 tablet by eamon every twelve hours Doxycycline Hyclate 100 MG 1 tablet Orally Twice a day for 10 day(s) Nov, Active Start: 04-25-2019 take 1 capsule by [facility] every twelve hours Doxycycline Monohydrate 100 MG 1 capsule Orally every 12 hrs for 10 days Mar, Active take 1 capsule by mo [facility] in the morning, then take 1 capsule by mouth at bedtime doxycycline (VIBRAMYCIN) 100 mg capsule Take 1 capsule (100 mg total) by mouth in the morning and 1 capsule (100 mg total) before bedtime. 0 Active Comment on above: Take [address] [facility] every 12 hours. ergocalciferol, vitamin D2, (VITAMIN D2 ORAL) (20 sources) End: 02-17-2024 ergocalciferol, vitamin D2, (VITAMIN D2 ORAL) Take by mouth. 02/17/2024 Discontinued (Erroneous entry) End: 02-17-2024 ergocalciferol, vitamin D2, (VITAMIN D2 ORAL) Take by mouth. 0 02/17/2024 Discontinued (Erroneous entry) ergocalciferol, vitamin D2, (VITAMIN D2 ORAL) Take by mouth. 0 Active Comment on above: Take by mouth. 2 ml famotidine 10 mg/ml injection (1 source) Histamine-2 Receptor Antagonist Start: 12-31-2023 End: 12-31-2023 famotidine 20 mg injection (PEPCID) Start: 12-31-2023 End: 12-31-2023 famotidine 20 mg injection ( PEPCID) iv contrast (will be provide d with radiology test) (4 sources) Start: 11-05-2023 [...] (1 % ) 4 mL injection (XYLOCAINE) metroNIDAZOLE 500 mg oral tablet (20 sources) Nitroimidazole Antimicrobial Start: 01-08-2024 End: 03-23-2024 take 1 tablet by mouth every twelve hours metroNIDAZOLE (FLAGYL) 500 mg tablet Take 1 tablet by mouth every 12 hours. 01/08/2024 03/23/2024 Discontinued End: 05-19-2024 take 1 tablet by mouth every eight hours metroNIDAZOLE (FLAGYL) 500 mg tablet Take 500 mg by mouth every 8 hours. 05/19/2024 Discontinued ondansetron 8 mg oral tablet (20 sources) Serotonin-3 Receptor Antagonist Start: 09-23-2023 End: 12-25-2023 take 1 tablet by mouth every eight hours as needed ondansetron (ZOFRAN) 8 mg tablet Take 1 tablet by mouth every 8 hours as needed for nausea/vomiting. 90 tablet 2 09/23/2023 12/25/2023 Discontinued (Course of therapy completed) Start: 07-30-2023 take 1 tablet by eamon th every eight hours as needed ondansetron (ZOFRAN) 4 mg tablet Take 1 tablet by mouth every 8 hours as needed for nausea/vomiting. 6 tablet 0 07/30/2023 Active Comment on above: Take 1 tablet by eamon th every 8 hours as needed for nausea/vomiting. oxyCODONE hydrochloride 5 mg oral tablet (2 sources) Opioid Agonist Start: 2022 End: 2022 take 1 tablet by mouth every six [...] for pain for up to 7 days. PACLitaxel 179.2 mg in NaCl 0.9% 304.8667 mL (TAXOL) (1 source) Start: 2023 End: 2023 PACLitaxel 179.2 mg in NaCl 0.9% 304.8667 mL (TAXOL) phenazopyridine hydrochloride 200 mg oral tablet (2 sources) Start: 2021 take 1 tablet by mouth every eight hours Pyridium 200 MG 1 tablet after meals Orally Three times a day for 2 day(s) Jul, Not-Taking prochlorperazine 10 mg oral tablet (20 sources) Phenothiazine Start: 2023 End: 2023 take 1 tablet by mouth every six hours as needed prochlorperazine (COMPAZINE) 10 mg tablet Take 1 tablet by mouth every 6 hours as needed. 100 tablet 2 09/23/2023 12/25/2023 Discontinued (Course of therapy completed) Comment on above: Take 1 tablet by eamon th every 6 hours as needed. zoledronic acid 3.5 mg in NaCl 0.9% 100 mL (ZOMETA) (1 source) Start: 2023 End: 2023 3.5 mg, INTRAVENOUS, Administer over 15 Minutes, ONCE, 1 dose, On Sat04/21/24 at 1130, Hazardous Potential Reproductive Risk Drug: Use appropriate PPE. Refrigerate. Problems Active Problems Problem Classification Problem Date Documented Date Episodic/Chronic Asthma (1 source) Unspecified asthma, uncomplicated; Translations: [UNSPECIFIED ASTHMA UNCOMPLICATED] Onset: 12-13-2022 Chronic Cancer of breast (20 sources) Malignant neoplasm of female breast; Translations: [Malignant neoplasm of unspecified site of left female breast] Onset: 06-28-2023 07-17-2023 Chronic Cataract (20 sources) Bilateral senile combined form cataracts of eyes; Translations: [Combined forms of age-related cataract, bilateral] Onset: 06-02-2024 03-23-2024 Chronic Chronic kidney disease (20 sources) Chronic kidney disease stage 3A ; Translations: [Stage 3a chronic kidney disease] Onset: 12-24-2023 12-24-2023 Chronic Chronic obstructive pulmonary disease and bronchiectasis (20 sources) Chronic bronchitis; Translations: [Unspecified chronic bronchitis] Onset: 06-01-2020 Resolved: 04-02-2023 03-15-2022 Chronic Chronic obstructive pulmonary disease and bronchiectasis (2 sources) Bronchitis, not specified as acute or chronic Episodic Congestive heart failure; nonhypertensive (1 source) Diastolic dysfunction; Translations: [Acute on chronic diastolic (congestive) heart failure] 11-17-2023 Chronic Coronary atherosclerosis and other heart disease (1 source) Arteriosclerotic vascular disease; Translations: [Atherosclerotic heart disease of [place] coronary artery without angina pectoris] 11-01-2023 Chronic Diabetes mellitus with complications (1 source) Hyperglycemia due to type 2 diabetes mellitus; Translations: [Type 2 diabetes mellitus with hyperglycemia] Chronic Disorders of lipid metabolism (20 sources) Mixed hyperlipidemia; Translations: [Mixed hyperlipidemia] Onset: 03-19-2018 03-19-2018 Chronic Diverticulosis and diverticulitis (1 source) Diverticulitis; Translations: [Diverticulitis of intestine, part unspecified, without perforation or abscess without bleeding] 01-14-2024 Chronic Esophageal disorders (20 sources) Gastroesophageal reflux disease; Translations: [Gastro-esophageal reflux disease without esophagitis] Onset: 02-08-2022 03-15-2022 Chronic Essential hypertension (20 sources) Essential (primary) hypertension; Translations: [Essential hypertension] Onset: 12-13-2022 01-31-2023 Chronic Heart valve disorders (20 sources) Rheumatic mitral valve disease, unspecified; Translations: [Mitral valve disorders] Onset: 05-08-2007 05-08-2007 Chronic Mycoses (5 sources) Candidiasis; Translations: [Candidiasis, unspecified] 11-27-2023 Episodic Osteoarthritis (20 sources) Bilateral primary osteoarthritis of knee; Translations: [Primary gonarthrosis, bilateral] Onset: 12-23-2017 12-23-2017 Chronic Other aftercare (1 source) 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; Translations: [OTH LONGTERM CURRENT DRUG THERAPY] Onset: 12-13-2022 Episodic Other aftercare (1 source) Post-discharge follow-up; Translations: [Encounter for follow-up examination after completed treatment for conditions other than malignant neoplasm] 11-17-2023 Episodic Other aftercare (1 source) Surgical follow-up; Translations: [Encounter for follow-up examination after completed treatment for conditions other than malignant neoplasm] 06-03-2024 Episodic Other bone disease and musculoskeletal deformities [...] Episodic Other diseases of veins and lymphatics (2 sources) Lymphedema, not elsewhere classified; Translations: [Lymphedema] Onset: 09-20-2023 Chronic Other eye disorders (20 sources) H/O: L cataract extraction; Translations: [Cataract extraction status, left eye] Onset: 06-09-2024 06-09-2024 Episodic Other eye disorders (18 sources) H/O: R cataract extraction; Translations: [Cataract extraction status, right eye] Onset: 06-18-2024 4 Episodic Other eye disorders (1 source) Cataract extraction status, right eye; Translations: [Status post cataract surgery, right] Onset: 06-18-2024 Episodic Other eye disorders (1 source) Cataract extraction status, left eye; Translations: [Status post cataract surgery, left] Onset: 06-09-2024 Episodic Other inflammatory condition of skin (1 source) Intertrigo; Translations: [Erythema intertrigo] 11-27-2023 Episodic Other liver diseases (1 source) Enzyme level - finding; Translations: [Elevated transaminase level] 01-21-2024 Episodic Other lower respiratory disease (1 source) Other disorders of lung; Translations: [OTHER DISORDERS OF LUNG] Onset: 12-13-2022 Episodic Other non-traumatic joint disorders (1 source) Multiple joint pain; Translations: [Pain in unspecified joint] 06-10-2024 Episodic Other non-traumatic joint disorders (1 source) Pain in unspecified hip; Translations: [Pain in unspecified hip] Onset: 06-10-2024 Episodic Other non-traumatic joint disorders (1 source) Pain in unspecified joint; Translations: [Pain in unspecified joint] Onset: 06-10-2024 Episodic Other nutritional; endocrine; and metabolic disorders [...] nutritional; endocrine; and metabolic disorders (1 source) Body mass index (BMI) 50.0-59.9, adult; Translations: [BODY MASS INDEX BMI 50.0-59.9 ADULT] Onset: 03-15-2022 Chronic Other nutritional; endocrine; and metabolic disorders (20 sources) Morbid obesity; Translations: [Morbid (severe) obesity due to excess calories] Onset: 12-23-2017 07-26-2023 Chronic Other nutritional; endocrine; and metabolic disorders (2 sources) Morbid (severe) obesity due to excess calories; Translations: [Morbid (severe) obesity due to excess calories] Onset: 04-02-2023 Chronic Other nutritional; endocrine; and metabolic disorders (1 source) Other specified hyperalimentation; Translations: [Other specified hyperalimentation] Onset: 07-26-2023 Chronic Otitis media and related conditions (3 sources) Non-suppurative otitis media; Translations: [Unspecified nonsuppurative otitis media, right ear] Onset: 10-09-2023 10-09-2023 Episodic Pneumonia (except that caused by tuberculosis or sexually transmitted disease) (3 sources) Pneumonia, unspecified organism; Translations: [Human metapneumovirus pneumonia] Onset: 12-10-2022 Episodic Pulmonary heart disease (20 sources) Pulmonary embolism; Translations: [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] Onset: 11-05-2023 11-05-2023 Episodic Residual codes; unclassified (1 source) Personal history of other specified conditions; Translations: [PERSONAL HISTORY OTH SPEC CONDITION] Onset: 12-13-2022 Episodic Residual codes; unclassified (2 sources) History of left mastectomy; Translations: [Acquired absence of left breast and nipple] 08-08-2023 Episodic Residual codes; unclassified (1 source) Other specified postprocedural states; Translations: [Post-operative state] Onset: 09-20-2023 Episodic Residual codes; unclassified (1 source) Postoperative state; Translations: [Other specified postprocedural states] 10-24-2023 Episodic Residual codes; unclassified (2 sources) Edema, generalized; Translations: [Generalized edema] 11-05-2023 Episodic Residual codes; unclassified (1 source) Postmenopausal state; Translations: [Asymptomatic menopausal state] 03-03-2024 Episodic Residual codes; unclassified (1 source) Pain, unspecified; Translations: [Pain, unspecified] Onset: 02-24-2018 Rheumatoid arthritis and related disease (20 sources) Rheumatoid arthritis; Translations: [Rheumatoid arthritis, unspecified] Onset: 07-26-2023 07-26-2023 Chronic Skin and subcutaneous tissue infections (3 sources) Abscess of groin; Translations: [Cutaneous abscess of groin] 01-07-2024 Episodic Thyroid disorders (20 sources) Thyroid nodule; Translations: [Nontoxic single thyroid nodule] Onset: 05-18-2024 Chronic Unclassified (20 sources) ASA CLASS II Onset: 05-06-2007 05-06-2007 Unclassified (1 source) CONTACT W/AND (SUSP) EXPOS COVID-19; Translations: [CONTACT W/AND (SUSP) EXPOS COVID-19] Onset: 12-13-2022 Unclassified (1 source) PERSONAL HISTORY OF COVID-19; Translations: [PERSONAL HISTORY OF COVID-19] Onset: 12-13-2022 Unclassified (1 source) Annual Exam Onset: 06-10-2024 Unclassified (1 source) Results Onset: 04-13-2024 Unclassified (2 sources) 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; Translations: [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] Onset: 01-28-2024 Unclassified (1 source) transistional care Onset: 11-14-2023 Unclassified (1 source) Sinus Problem Onset: 10-09-2023 Past or Other Problems Problem Classification Problem Date Documented Date Episodic/Chronic Abdominal hernia (3 sources) Hiatal hernia; Translations: [Diaphragmatic hernia without obstruction or gangrene] Onset: 12-13-2022 Episodic Calculus of urinary tract (17 sources) Kidney stone; Translations: [Calculus of kidney] Onset: 07-06-2021 04-02-2023 Episodic Cardiac dysrhythmias (20 sources) Paroxysmal atrial fibrillation; Translations: [Paroxysmal atrial fibrillation] Onset: 12-08-2021 Resolved: 04-02-2023 Chronic Cardiac dysrhythmias (20 sources) Palpitations; Translations: [Palpitations] Onset: 02-05-2023 02-05-2023 Episodic Diabetes mellitus without complication (17 sources) Abnormal glucose level; Translations: [Other abnormal glucose] Onset: 04-24-2023 04-24-2023 Episodic Fever of unknown origin (1 source) Fever Onset: 10-09-2023 Episodic Genitourinary symptoms and ill-defined conditions (4 sources) Dysuria; Translations: [Dysuria] Onset: 11-14-2023 11-17-2023 Episodic Heart valve disorders (20 sources) Heart murmur; Translations: [Cardiac murmur, unspecified] Onset: 05-06-2007 05-06-2007 Episodic Hypertension with complications and secondary hypertension (20 sources) Hypertensive urgency ; Translations: [Hypertensive urgency] Onset: 03-14-2022 Resolved: 03-15-2022 03-15-2022 Chronic Immunizations and screening for infectious disease (1 source) Contact with and (suspected) exposure to other viral communicable diseases Onset: 07-07-2021 Resolved: 07-07-2021 Episodic Malaise and fatigue (1 source) Weakness; Translations: [WEAKNESS] Onset: 03-15-2022 Episodic Mood disorders (17 sources) Mood disorders Onset: 05-14-2023 Resolved: 06-10-2024 05-14-2023 Nausea and vomiting (1 source) Nausea; Translations: [NAUSEA] Onset: 03-15-2022 Episodic Nonmalignant breast conditions (4 sources) Other specified disorders of breast; Translations: [Lump in right breast] Onset: 09-20-2023 01-14-2024 Episodic Nonspecific chest pain (4 sources) Other chest pain; Translations: [Chest pain] Onset: 03-15-2022 11-05-2023 Episodic Other connective tissue disease (20 sources) Other symptoms and signs involving the musculoskeletal system; Translations: [Other musculoskeletal symptoms referable to limbs] Onset: 03-14-2022 03-15-2022 Episodic Other inflammatory condition of skin (1 source) Erythema intertrigo; Translations: [Erythema intertrigo] Onset: 11-27-2023 Episodic Other lower respiratory disease (1 source) Shortness of breath; Translations: [SHORTNESS OF BREATH] Onset: 03-15-2022 Episodic Other lower respiratory disease (20 sources) Dyspnea on exertion; Translations: [Other forms of dyspnea] Onset: 01-31-2023 01-31-2023 Episodic Other lower respiratory disease (1 source) Cough Onset: 10-09-2023 Episodic Other lower respiratory disease (1 source) Other forms of dyspnea; Translations: [PETERSON (dyspnea on exertion)] Onset: 01-31-2023 Episodic Other nervous system disorders (20 sources) Acute postoperative pain; Translations: [Other acute postprocedural pain] Onset: 04-21-2018 04-21-2018 Episodic Other nervous system disorders (1 source) Other acute postprocedural pain; Translations: [Post-op pain] Onset: 09-04-2023 Episodic Other non-traumatic joint disorders (19 sources) Hip pain; Translations: [Pain in left hip] Onset: 04-24-2023 04-24-2023 Episodic Other nutritional; endocrine; and metabolic disorders (17 sources) Overweight; Translations: [Overweight] Onset: 04-24-2023 04-24-2023 Episodic Other screening for suspected conditions (not mental disorders or infectious disease) (20 sources) Patient encounter status; Translations: [Encounter for screening for malignant neoplasm of colon] Onset: 09-12-2020 Episodic Other upper respiratory disease (1 source) Pain in throat Onset: 10-09-2023 Episodic Other upper respiratory infections (5 sources) Acute upper respiratory infection, unspecified; Translations: [Recurrent acute sinusitis] Onset: 10-09-2023 Episodic Residual codes; unclassified (20 sources) Edema; Translations: [Edema, unspecified] Onset: 01-31-2023 01-31-2023 Episodic Residual codes; unclassified (17 sources) Edema of lower leg ; Translations: [Localized edema] Onset: 04-24-2023 04-24-2023 Episodic Residual codes; unclassified (17 sources) Generalized chronic body pains; Translations: [Pain, unspecified] Onset: 04-24-2023 04-24-2023 Episodic Residual codes; unclassified (1 source) Generalized edema; Translations: [Generalized edema] Onset: 09-18-2023 Episodic Residual codes; unclassified (1 source) Acquired absence of left breast and nipple; 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, left] Onset: 12-24-2023 Episodic Residual codes; unclassified (1 source) Estrogen [...] Test Name Value Interpretation Reference Range Facility CNNURSEon 07-17-2024 CNNURSE Normal [facility] CNOVSPon 07-16-2024 CNOVSP Normal [facility] CNOVon 07-15-2024 CNOV Normal [facility] CYTOLOGY NON-GYNon CASE REPORT Normal [facility] Comment on above: Order Comment: Speci men Type: SPECIMEN OBTAINED BY ASPIRATIONOrdering Facility: [facility] Address: [address] [place] [address] Result Comment: [facility] Cytology Report Case: [id number] Provider: Sandy Mcgregor MD, PhD Collected: 07/15/2024 02:32 PMOrdering Location: Endocrinology Received: 07/15/2024 03:30 PMPathologist: Torri Nunez MDSpecimen: Thyroid, Right, Lobe, Mid Performed By: #### C YTONON ####[facility] LABCLIA [id number] [place] [address] [place] CLINICAL HISTORY Thyroid Nodules Normal [facility] Comment on above: Order Comment: Speci men Type: SPECIMEN OBTAINED BY ASPIRATIONOrdering Facility: [facility] Address: [address] [place] [address] Result Comment: Destiny ma sample received Performed By: #### C YTONON ####[facility] LABCLIA [id number] [address] [place] FINAL DIAGNOSIS Normal [facility] Comment on above: Order Comment: Speci men Type: SPECIMEN OBTAINED BY ASPIRATIONOrdering Facility: [facility] Address: [address] [place] [address] Result Comment: A - Thyroid, Right Lobe, Fine Needle Aspirate - Mid Non-diagnostic aspirate sample. Insufficient thyroid follicular epithelial cells present for evaluation.The following cell blocks were associated with this case:A1 Cell Block, Alcohol Fixed Performed By: #### C YTONON ####[facility] LABCLIA [id number] [address] [place] FINAL PERFORMING LAB Normal [facility] Comment on above: Order Comment: Speci men Type: SPECIMEN OBTAINED BY ASPIRATIONOrdering Facility: [facility] Address: [address] [place] [address] Result Comment: Tech nical component, block press operator screening performed at [facility], [address] [place] [address] CLIA# [id number] interpretation performed at [facility], [address] [place] [address] CLIA# [id number] Director: Amor Eisenberg M.D. Performed By: #### C YTONON ####[facility] LABIA [id number] [address] GROSS DESCRIPTION Normal [facility] Comment on above: Order Comment: Speci men Type: SPECIMEN OBTAINED BY ASPIRATIONOrdering Facility: [facility] Address: [address] [place] [address] Result Comment: A. T hyroid, Right, Lobe30 cc hazy pink fluid with particles. ThinPrep and Cell Block prepared and 2 smears. Afirma sample received Performed By: #### C YTONON ####[facility] LABCLIA [id number] [address] [place] FNA BIOPSYon 07-15-2024 Sandy Mcgregor MD , PhD 07/15/2024 2:41 PM [facility] BIOPSY Referring Physician: Sandy Mcgregor MD, P* Primary Care Physician: Sunny Jenkins MD Patient on anti-platelet or anticoagulant drugs: No. The risks, benefits and anticipated outcomes of the procedure, the risks and benefits of the alternatives to the procedure, and the roles and tasks of the personnel to be involved, were discussed with the patient. Informed Consent Consent Obtained: Written [place] Protocol A moment to CARE was completed. SIGN IN Personnel directly involved with the procedure wore the appropriate PPE. Patient/Surrogate Stated/Verified: Patient name, Date of and Intended procedure TIME OUT Intended patient and procedure match the source document(s). Consent documented and matches the intended procedure. Relevant labs, photos, and/or imaging studies have been reviewed. She was positioned in decubitus with neck in extension. The skin was prepped in the usual aseptic manner. Procedure: Fine Needle Aspiration of 1 Thyroid Nodule(s). The first nodule is located in the middle right lobe. The second nodule is located in the middle left lobe. Ice pack used to numb the skin overlying the area of the nodule. through target nodule using 25 G needle(s) with ultrasound guidance. Aspirate character: a small drop of blood. Afirma sample sent. Pressure was held on to the area until hemostasis was obtained. Band aid applied to the area. Outcome: tolerated well, no immediate complications Was told to go the emergency room if there is severe pain or swelling in the neck area. Follow up will be determined once FNA cytology results are available. Follow up with referring physician. [facility] US THYROID FNA (POC) ENDO US E ONLYon 07-15-2024 [facility] Basic metabolic 2000 panelon 07-14-2024 Anion gap [Moles/Vol] 15 mmol/L Normal 8-15 [facility] Comment on above: Order Comment: Speci men Type: BLOOD SPECIMENOrdering Facility: [facility] Address: [address] [place] [address] Performed By: #### 2 4321-2 ####[facility] [id number] [place] [address] [place] Calcium [Mass/Vol] 9.8 mg/dL Normal 8.5-10.2 [facility] Comment on above: Order Comment: Speci men Type: BLOOD SPECIMENOrdering Facility: [facility] Address: [address] [place] [address] Performed By: #### 2 4321-2 ####[facility] LABIA [id number] [place] [address] [place] Chloride [Moles/Vol] 103 mmol/L Normal 98-107 [facility] Comment on above: Order Comment: Speci men Type: BLOOD SPECIMENOrdering Facility: [facility] Address: [address] [place] [address] Performed By: #### 2 4321-2 ####[facility] LABCLIA [id number] [place] [address] [place] CO2 [Moles/Vol] 23 mmol/L Normal 22-30 [facility] Comment on above: Order Comment: Speci men Type: BLOOD SPECIMENOrdering Facility: [facility] Address: [address] [place] [address] Performed By: #### 2 4321-2 ####[facility] LABCLIA [id number] [place] [address] [place] Creatinine [Mass/Vol] 1.72 mg/dL High 0.58-0.96 [facility] Comment on above: Order Comment: Speci men Type: BLOOD SPECIMENOrdering Facility: [facility] Address: [address] [place] [address] Performed By: #### 2 4321-2 ####[facility] LABCLIA [id number] [place] [address] [place] Creatinine and Glomerular filtration rate.predicted panel (S/P/Bld) 32 mL/min/1.73m??? Low >=60 [facility] Comment on above: Order Comment: Speci men Type: BLOOD SPECIMENOrdering Facility: [facility] Address: [address] [place] [address] Result Comment: Cristal mated Glomerular Filtration Rate [...] actual GFR. Performed By: #### 2 4321-2 ####[facility] LABCLIA [id number] [place] [address] [place] Glucose [Mass/Vol] 149 mg/dL High 74-99 [facility] Comment on above: Order Comment: Speci men Type: BLOOD SPECIMENOrdering Facility: [facility] Address: [address] [place] [address] Result Comment: The [place] Diabetes Association (ADA) provides guidance for cutoff [...] Standards of Medical Care in Diabetes 2016, [place] [employer]. Diabetes Care. 2016.39(Suppl 1). Performed By: #### 2 4321-2 ####[facility] LABCLIA [id number] [place] [address] [place] Potassium [Moles/Vol] 4.5 mmol/L Normal 3.7-5.1 [facility] Comment on above: Order Comment: Speci men Type: BLOOD SPECIMENOrdering Facility: [facility] Address: [address] [place] [address] Performed By: #### 2 4321-2 ####[facility] LABCLIA [id number] [place] [address] [place] Sodium [Moles/Vol] 141 mmol/L Normal 136-144 [facility] Comment on above: Order Comment: Speci men Type: BLOOD SPECIMENOrdering Facility: [facility] Address: [address] [place] [address] Performed By: #### 2 4321-2 ####[facility] LABCLIA [id number] [place] [address] [place] Urea nitrogen [Mass/Vol] 20 mg/dL Normal 7-21 [facility] Comment on above: Order Comment: Speci men Type: BLOOD SPECIMENOrdering Facility: [facility] Address: [address] [place] [address] Performed By: #### 2 4321-2 ####[facility] LABCLIA [id number] [place] [address] [place] CBC W Auto Differential pane l (Bld)on 07-06-2024 Basophils (Bld) [#/Vol] 0.03 10*3/uL [place] Basophils/100 WBC (Bld) 0.5 % [facility] Differential cell count method Nom (Bld) Auto [facility] Eosinophils (Bld) [#/Vol] 0.38 10*3/uL [place] Eosinophils/100 WBC (Bld) 6.9 % [facility] Erythrocyte distribution width (RBC) [Ratio] 15.8 % High 11.5 - 15.0 % [facility] Hematocrit (Bld) [Volume fraction] 33.9 % Low 36.0 - 46.0 % [facility] Hemoglobin (Bld) [Mass/Vol] 11.4 g/dL Low 11.5 - 15.5 g/dL [facility] Immature granulocytes (Bld) [#/Vol] 0.03 10*3/uL [place] Immature granulocytes/100 WBC (Bld) 0.5 % [facility] Interpretation and review of laboratory results Abnormal [facility] Lymphocytes (Bld) [#/Vol] 0.94 10*3/uL Low [facility] Lymphocytes/100 WBC (Bld) 17.1 % [facility] MCH (RBC) [Entitic mass] 32.8 pg 26.0 - 34.0 pg [facility] MCHC (RBC) [Mass/Vol] 33.6 g/dL 30.5 - 36.0 g/dL [facility] MCV (RBC) [Entitic vol] 97.4 fL 80.0 - 100.0 fL [facility] Monocytes (Bld) [#/Vol] 0.25 10*3/uL [place] Monocytes/100 WBC (Bld) 4.5 % [facility] Neutrophils (Bld) [#/Vol] 3.87 10*3/uL [facility] Neutrophils/100 WBC (Bld) 70.5 % [facility] Nucleated RBC (Bld) [#/Vol] NINF [facility] Nucleated RBC/100 WBC (Bld) [Ratio] 0.0 % /100 WBC [facility] Platelet mean volume (Bld) [Entitic vol] 8.9 fL Low 9.0 - 12.7 fL [facility] Platelets (Bld) [#/Vol] 255 10*3/uL [facility] RBC (Bld) [#/Vol] 3.48 10*6/uL Low 3.90 - 5.20 m/uL [facility] WBC (Bld) [#/Vol] 5.50 10*3/uL [facility] Basophils (Bld) [#/Vol] 0.03 10*3/uL Normal <0.11 [facility] Comment on above: Order Comment: Speci men Type: BLOOD SPECIMENOrdering Facility: [facility] Address: [address] [place] [address] Performed By: #### 5 7021-8 ####[facility] LABCLIA [id number] [place] [address] Basophils/100 WBC (Bld) 0.5 % Normal [facility] Comment on above: Order Comment: Speci men Type: BLOOD SPECIMENOrdering Facility: [facility] Address: [address] [place] [address] Performed By: #### 5 7021-8 ####[facility] LABCLIA [id number] [place] [address] Differential cell count method Nom (Bld) Auto Normal [facility] Comment on above: Order Comment: Speci men Type: BLOOD SPECIMENOrdering Facility: [facility] Address: [address] [place] [address] Performed By: #### 5 7021-8 ####[facility] LABCLIA [id number] [place] [address] Eosinophils (Bld) [#/Vol] 0.38 10*3/uL Normal <0.46 [facility] Comment on above: Order Comment: Speci men Type: BLOOD SPECIMENOrdering Facility: [facility] Address: [address] [place] [address] Performed By: #### 5 7021-8 ####[facility] LABCLIA [id number] [place] [address] Eosinophils/100 WBC (Bld) 6.9 % Normal [facility] Comment on above: Order Comment: Speci men Type: BLOOD SPECIMENOrdering Facility: [facility] Address: [address] [place] [address] Performed By: #### 5 7021-8 ####[facility] LABCLIA [id number] [place] [address] Erythrocyte distribution width (RBC) [Ratio] 15.8 % High 11.5-15.0 [facility] Comment on above: Order Comment: Speci men Type: BLOOD SPECIMENOrdering Facility: [facility] Address: [address] [place] [address] Performed By: #### 5 7021-8 ####[facility] LABCLIA [id number] [place] [address] Hematocrit (Bld) [Volume fraction] 33.9 % Low 36.0-46.0 [facility] Comment on above: Order Comment: Speci men Type: BLOOD SPECIMENOrdering Facility: [facility] Address: [address] [place] [address] Performed By: #### 5 7021-8 ####[facility] LABCLIA [id number] [place] [address] Hemoglobin (Bld) [Mass/Vol] 11.4 g/dL Low 11.5-15.5 [facility] Comment on above: Order Comment: Speci men Type: BLOOD SPECIMENOrdering Facility: [facility] Address: [address] [place] [address] Performed By: #### 5 7021-8 ####[facility] LABCLIA [id number] [place] [address] Immature granulocytes (Bld) [#/Vol] 0.03 10*3/uL Normal <0.10 [facility] Comment on above: Order Comment: Speci men Type: BLOOD SPECIMENOrdering Facility: [facility] Address: [address] [place] [address] Performed By: #### 5 7021-8 ####[facility] LABCLIA [id number] [place] [address] Immature granulocytes/100 WBC (Bld) 0.5 % Normal [facility] Comment on above: Order Comment: Speci men Type: BLOOD SPECIMENOrdering Facility: [facility] Address: [address] [place] [address] Performed By: #### 5 7021-8 ####[facility] LABCLIA [id number] [place] [address] Lymphocytes (Bld) [#/Vol] 0.94 10*3/uL Low 1.00-4.00 [facility] Comment on above: Order Comment: Speci men Type: BLOOD SPECIMENOrdering Facility: [facility] Address: [address] [place] [address] Performed By: #### 5 7021-8 ####[facility] LABCLIA [id number] [place] [address] Lymphocytes/100 WBC (Bld) 17.1 % Normal [facility] Comment on above: Order Comment: Speci men Type: BLOOD SPECIMENOrdering Facility: [facility] Address: [address] [place] [address] Performed By: #### 5 7021-8 ####[facility] LABCLIA [id number] [place] [address] MCH (RBC) [Entitic mass] 32.8 pg Normal 26.0-34.0 [facility] Comment on above: Order Comment: Speci men Type: BLOOD SPECIMENOrdering Facility: [facility] Address: [address] [place] [address] Performed By: #### 5 7021-8 ####[facility] LABCLIA [id number] [place] [address] MCHC (RBC) [Mass/Vol] 33.6 g/dL Normal 30.5-36.0 [facility] Comment on above: Order Comment: Speci men Type: BLOOD SPECIMENOrdering Facility: [facility] Address: [address] [place] [address] Performed By: #### 5 7021-8 ####[facility] LABCLIA [id number] [place] [address] MCV (RBC) [Entitic vol] 97.4 fL Normal 80.0-100.0 [facility] Comment on above: Order Comment: Speci men Type: BLOOD SPECIMENOrdering Facility: [facility] Address: [address] [place] [address] Performed By: #### 5 7021-8 ####[facility] LABCLIA [id number] [place] [address] Monocytes (Bld) [#/Vol] 0.25 10*3/uL Normal <0.87 [facility] Comment on above: Order Comment: Speci men Type: BLOOD SPECIMENOrdering Facility: [facility] Address: [address] [place] [address] Performed By: #### 5 7021-8 ####[facility] LABCLIA [id number] [place] [address] Monocytes/100 WBC (Bld) 4.5 % Normal [facility] Comment on above: Order Comment: Speci men Type: BLOOD SPECIMENOrdering Facility: [facility] Address: [address] [place] [address] Performed By: #### 5 7021-8 ####[facility] LABCLIA [id number] [place] [address] Neutrophils (Bld) [#/Vol] 3.87 10*3/uL Normal 1.45-7.50 [facility] Comment on above: Order Comment: Speci men Type: BLOOD SPECIMENOrdering Facility: [facility] Address: [address] [place] [address] Performed By: #### 5 7021-8 ####[facility] LABCLIA [id number] [place] [address] Neutrophils/100 WBC (Bld) 70.5 % Normal [facility] Comment on above: Order Comment: Speci men Type: BLOOD SPECIMENOrdering Facility: [facility] Address: [address] [place] [address] Performed By: #### 5 7021-8 ####[facility] LABCLIA [id number] [place] [address] Nucleated RBC (Bld) [#/Vol] 10*3/uL Normal <0.01 [facility] Comment on above: Order Comment: Speci men Type: BLOOD SPECIMENOrdering Facility: [facility] Address: [address] [place] [address] Performed By: #### 5 7021-8 ####[facility] LABCLIA [id number] [place] [address] Nucleated RBC/100 WBC (Bld) [Ratio] 0.0 /100 WBC Normal [facility] Comment on above: Order Comment: Speci men Type: BLOOD SPECIMENOrdering Facility: [facility] Address: [address] [place] [address] Performed By: #### 5 7021-8 ####[facility] LABCLIA [id number] [place] [address] Platelet mean volume (Bld) [Entitic vol] 8.9 fL Low 9.0-12.7 [facility] Comment on above: Order Comment: Speci men Type: BLOOD SPECIMENOrdering Facility: [facility] Address: [address] [place] [address] Performed By: #### 5 7021-8 ####[facility] LABCLIA [id number] [place] [address] Platelets (Bld) [#/Vol] 255 10*3/uL Normal 150-400 [facility] Comment on above: Order Comment: Speci men Type: BLOOD SPECIMENOrdering Facility: [facility] Address: [address] [place] [address] Performed By: #### 5 7021-8 ####[facility] LABIA [id number] [place] [address] RBC (Bld) [#/Vol] 3.48 10*6/uL Low 3.90-5.20 [facility] Comment on above: Order Comment: Speci men Type: BLOOD SPECIMENOrdering Facility: [facility] Address: [address] [place] [address] Performed By: #### 5 7021-8 ####[facility] LABCLIA [id number] [place] [address] WBC (Bld) [#/Vol] 5.50 10*3/uL Normal 3.70-11.00 [facility] Comment on above: Order Comment: Speci men Type: BLOOD SPECIMENOrdering Facility: [facility] Address: [address] [place] [address] Performed By: #### 5 7021-8 ####[facility] LABIA [id number] [place] [address] CYSTATIN Con 07-06-2024 Cystatin C [Mass/Vol] 1.66 mg/L High 0.61 - 0.95 mg/L [facility] Cystatin C eGFR 36 Low - PINF [facility] Comment on above: Estimated Glomerular Filtration Rate (eGFR) is calculated using the 2012 CKD-EPI cystatin C equation. This equation utilizes serum cystatin C, sex, and age as parameters. The cystatin C assay has traceable calibration to the ERM-DA471/IF reference material. Refer to KDIGO guidelines for clinical interpretation. In patients with unstable renal function, e.g. those with acute kidney injury, the eGFR may not accurately reflect actual GFR. Interpretation and review of laboratory results Abnormal [facility] Cystatin C [Mass/Vol] 1.66 mg/L High 0.61-0.95 [facility] Comment on above: Order Comment: Speci kalyn Type: BLOOD SPECIMENOrdering Facility: [facility] Address: [address] [place] [address] Performed By: #### C YSTC ####[facility] LABCLIA [id number] [address] [facility] CYSTATIN C EGFR 36 mL/min/1.73m??? Low >=60 C [facility] Comment on above: Order Comment: Speci men Type: BLOOD SPECIMENOrdering Facility: [facility] Address: [address] [place] [address] Result Comment: Cristal mated Glomerular Filtration Rate (eGFR) is calculated using the 2012 CKD-EPI cystatin C equation. This equation utilizes serum cystatin C, sex, and age as parameters. The cystatin C assay has traceable calibration to the ERM-DA471/[facility] reference material. Refer to KDIGO guidelines for clinical interpretation. In patients with unstable renal function, e.g. those with acute kidney injury, the eGFR may not accurately reflect actual GFR. Performed By: #### C YSTC ####[facility] LABCLIA [id number] [address] [place] Comprehensive metabolic 2000 panelOrdered By: Jennifer Rosa on 07-06-2024 Albumin [Mass/Vol] 4.0 g/dL 3.9 - 4.9 g/dL [facility] ALP [Catalytic activity/Vol] 75 U/L 34 - 123 U/L [facility] ALT [Catalytic activity/Vol] 11 U/L 7 - 38 U/L [facility] Anion gap [Moles/Vol] 14 mmol/L 8 - 15 mmol/L [facility] AST [Catalytic activity/Vol] 10 U/L Low 13 - 35 U/L [facility] Bilirubin [Mass/Vol] 0.3 mg/dL 0.2 - 1 .3 mg/dL [facility] Calcium [Mass/Vol] 9.5 mg/dL 8.5 - 10. 2 mg/dL [facility] Chloride [Moles/Vol] 108 mmol/L High 98 - 10 7 mmol/L [facility] CO2 [Moles/Vol] 21 mmol/L Low 22 - 30 mmol/L [facility] Creatinine [Mass/Vol] 2.17 mg/dL High 0.58 - 0.96 mg/dL [facility] GFR/1.73 sq M.predicted among non-blacks MDRD (S/P/Bld) [Vol rate/Area] 24 mL/min/{1.73_m2} Low - PINF [facility] Comment on above: Estimated Glomerular Filtration Rate (eGFR) is calculated using the 2020 CKD-EPI creatinine equation. This equation utilizes serum creatinine, sex, and age as parameters. The creatinine assay has traceable calibration to isotope dilution-mass spectrometry. Refer to KDIGO guidelines for clinical interpretation. In patients with unstable renal function, e.g. those with acute kidney injury, the eGFR may not accurately reflect actual GFR. Glucose [Mass/Vol] 127 mg/dL High 74 - 99 mg/dL [facility] Comment on above: The [place] Diabete s Association (ADA) provides guidance for cutoff values [...] Standards of Medical Care in Diabetes 2016, [place] Diabetes Association. Diabetes Care. 2016.39(Suppl 1). Interpretation and review of laboratory results Abnormal [facility] Potassium [Moles/Vol] 4.4 mmol/L 3.7 - 5.1 mmol/L [facility] Protein [Mass/Vol] 6.7 g/dL 6.3 - 8.0 g/dL [facility] Sodium [Moles/Vol] 143 mmol/L 136 - 144 mmol/L [facility] Urea nitrogen [Mass/Vol] 28 mg/dL High 7 - 21 mg/dL [facility] Comprehensive metabolic 2000 panelon 07-06-2024 Albumin [Mass/Vol] 4.0 g/dL Normal 3.9-4.9 [facility] Comment on above: Order Comment: Speci men Type: BLOOD SPECIMENOrdering Facility: [facility] Address: [address] [place] [address] Performed By: #### 2 4323-8 ####[facility] LABCLIA [id number] [place] [address] ALP [Catalytic activity/Vol] 75 U/L Normal 34-123 [facility] Comment on above: Order Comment: Speci men Type: BLOOD SPECIMENOrdering Facility: [facility] Address: [address] [place] [address] Performed By: #### 2 4323-8 ####[facility] LABCLIA [id number] [place] [address] ALT [Catalytic activity/Vol] 11 U/L Normal 7-38 [facility] Comment on above: Order Comment: Speci men Type: BLOOD SPECIMENOrdering Facility: [facility] Address: [address] [place] [address] Performed By: #### 2 4323-8 ####[facility] LABCLIA [id number] [place] [address] Anion gap [Moles/Vol] 14 mmol/L Normal 8-15 [facility] Comment on above: Order Comment: Speci men Type: BLOOD SPECIMENOrdering Facility: [facility] Address: [address] [place] [address] Performed By: #### 2 4323-8 ####[facility] LABCLIA [id number] [place] [address] AST [Catalytic activity/Vol] 10 U/L Low 13-35 [facility] Comment on above: Order Comment: Speci men Type: BLOOD SPECIMENOrdering Facility: [facility] Address: [address] [place] [address] Performed By: #### 2 4323-8 ####[facility] LABCLIA [id number] [place] [address] Bilirubin [Mass/Vol] 0.3 mg/dL Normal 0.2-1.3 [facility] Comment on above: Order Comment: Speci men Type: BLOOD SPECIMENOrdering Facility: [facility] Address: [address] [place] [address] Performed By: #### 2 4323-8 ####[facility] LABCLIA [id number] [place] [address] Calcium [Mass/Vol] 9.5 mg/dL Normal 8.5-10.2 [facility] Comment on above: Order Comment: Speci men Type: BLOOD SPECIMENOrdering Facility: [facility] Address: [address] [place] [address] Performed By: #### 2 4323-8 ####[facility] LABCLIA [id number] [place] [address] Chloride [Moles/Vol] 108 mmol/L High 98-107 [facility] Comment on above: Order Comment: Speci men Type: BLOOD SPECIMENOrdering Facility: [facility] Address: [address] [place] [address] Performed By: #### 2 4323-8 ####[facility] LABCLIA [id number] [place] [address] CO2 [Moles/Vol] 21 mmol/L Low 22-30 [facility] Comment on above: Order Comment: Speci men Type: BLOOD SPECIMENOrdering Facility: [facility] Address: [address] [place] [address] Performed By: #### 2 4323-8 ####[facility] LABCLIA [id number] [place] [address] Creatinine [Mass/Vol] 2.17 mg/dL High 0.58-0.96 [facility] Comment on above: Order Comment: Speci men Type: BLOOD SPECIMENOrdering Facility: [facility] Address: [address] [place] [address] Performed By: #### 2 4323-8 ####[facility] LABCLIA [id number] [place] [address] Creatinine and Glomerular filtration rate.predicted panel (S/P/Bld) 24 mL/min/1.73m??? Low >=60 [facility] Comment on above: Order Comment: Speci men Type: BLOOD SPECIMENOrdering Facility: [facility] Address: [address] [place] [address] Result Comment: Cristal mated Glomerular Filtration Rate [...] actual GFR. Performed By: #### 2 4323-8 ####[facility] LABIA [id number] [place] [address] Glucose [Mass/Vol] 127 mg/dL High 74-99 [facility] Comment on above: Order Comment: Speci men Type: BLOOD SPECIMENOrdering Facility: [facility] Address: [address] [place] [address] Result Comment: The [place] Diabetes Association (ADA) provides guidance for cutoff [...] Standards of Medical Care in Diabetes 2016, [place] Diabetes Association. Diabetes Care. 2016.39(Suppl 1). Performed By: #### 2 4323-8 ####[facility] LABIA [id number] [place] [address] Potassium [Moles/Vol] 4.4 mmol/L Normal 3.7-5.1 [facility] Comment on above: Order Comment: Speci men Type: BLOOD SPECIMENOrdering Facility: [facility] Address: [address] [place] [address] Performed By: #### 2 4323-8 ####[facility] LABCLIA [id number] [place] [address] Protein [Mass/Vol] 6.7 g/dL Normal 6.3-8.0 [facility] Comment on above: Order Comment: Speci men Type: BLOOD SPECIMENOrdering Facility: [facility] Address: [address] [place] [address] Performed By: #### 2 4323-8 ####[facility] LABCLIA [id number] [place] [address] Sodium [Moles/Vol] 143 mmol/L Normal 136-144 [facility] Comment on above: Order Comment: Speci men Type: BLOOD SPECIMENOrdering Facility: [facility] Address: [address] [place] [address] Performed By: #### 2 4323-8 ####[facility] LABCLIA [id number] [place] [address] Urea nitrogen [Mass/Vol] 28 mg/dL High 7-21 [facility] Comment on above: Order Comment: Speci men Type: BLOOD SPECIMENOrdering Facility: [facility] Address: [address] [place] [address] Performed By: #### 2 4323-8 ####[facility] LABCLIA [id number] [place] [address] CNPNon 06-23-2024 CNPN Normal [facility] US THYROID/PARATHYROIDon US THYROID/PARATHYROID Normal [facility] ANES POSTPROC EVALon 024 ANES POSTPROC EVAL Normal [facility] ANES PRE-OPon 06-17-2024 ANES PRE-OP Normal [facility] OPERATIVE NOon 06-17-2024 OPERATIVE NO Normal [facility] CNOVSPon 06-03-2024 CNOVSP Normal [facility] CNPNon 06-03-2024 CNPN Normal [facility] ANES POSTPROC EVALon 024 ANES POSTPROC EVAL Normal [facility] ANES PRE-OPon 06-02-2024 ANES PRE-OP Normal [facility] OPERATIVE NOon 06-02-2024 OPERATIVE NO Normal [facility] CBC W Auto Differential pane l (Bld)on 06-01-2024 Basophils (Bld) [#/Vol] 0.04 10*3/[facility] Basophils/100 WBC (Bld) 0.9 % [facility] Differential cell count method Nom (Bld) Auto [facility] Eosinophils (Bld) [#/Vol] 0.43 10*3/uL [place] Eosinophils/100 WBC (Bld) 9.8 % [facility] Erythrocyte distribution width (RBC) [Ratio] 14.0 % 11.5 - 15.0 % [facility] Hematocrit (Bld) [Volume fraction] 36.5 % 36.0 - 46.0 % [facility] Hemoglobin (Bld) [Mass/Vol] 12.1 g/dL 11.5 - 15.5 g/dL [facility] Immature granulocytes (Bld) [#/Vol] [facility] Immature granulocytes/100 WBC (Bld) 0.5 % [facility] Interpretation and review of laboratory results Abnormal [facility] Lymphocytes (Bld) [#/Vol] 0.92 10*3/uL Low [facility] Lymphocytes/100 WBC (Bld) 20.9 % [facility] MCH (RBC) [Entitic mass] 31.6 pg 26.0 - 34.0 pg [facility] MCHC (RBC) [Mass/Vol] 33.2 g/dL 30.5 - 36.0 g/dL [facility] MCV (RBC) [Entitic vol] 95.3 fL 80.0 - 100.0 fL [facility] Monocytes (Bld) [#/Vol] 0.24 10*3/uL [facility] Monocytes/100 WBC (Bld) 5.5 % [facility] Neutrophils (Bld) [#/Vol] 2.75 10*3/uL [facility] Neutrophils/100 WBC (Bld) 62.4 % [facility] Nucleated RBC (Bld) [#/Vol] NINF [facility] Nucleated RBC/100 WBC (Bld) [Ratio] 0.0 % /100 WBC [facility] Platelet mean volume (Bld) [Entitic vol] 9.0 fL 9.0 - 12.7 fL [facility] Platelets (Bld) [#/Vol] 237 10*3/uL [facility] RBC (Bld) [#/Vol] 3.83 10*6/uL Low 3.90 - 5.20 m/uL [facility] WBC (Bld) [#/Vol] 4.40 10*3/uL [facility] Basophils (Bld) [#/Vol] 0.04 10*3/uL Normal <0.11 [facility] Comment on above: Order Comment: Speci men Type: BLOOD SPECIMENOrdering Facility: [facility] Address: [address] [place] [address] Performed By: #### 5 7021-8 ####[facility] LABCLIA [id number] [place] [address] Basophils/100 WBC (Bld) 0.9 % Normal [facility] Comment on above: Order Comment: Speci men Type: BLOOD SPECIMENOrdering Facility: [facility] Address: [address] [place] [address] Performed By: #### 5 7021-8 ####[facility] LABCLIA [id number] [place] [address] Differential cell count method Nom (Bld) Auto Normal [facility] Comment on above: Order Comment: Speci men Type: BLOOD SPECIMENOrdering Facility: [facility] Address: [address] [place] [address] Performed By: #### 5 7021-8 ####[facility] LABCLIA [id number] [place] [address] Eosinophils (Bld) [#/Vol] 0.43 10*3/uL Normal <0.46 [facility] Comment on above: Order Comment: Speci men Type: BLOOD SPECIMENOrdering Facility: [facility] Address: [address] [place] [address] Performed By: #### 5 7021-8 ####[facility] LABCLIA [id number] [place] [address] Eosinophils/100 WBC (Bld) 9.8 % Normal [facility] Comment on above: Order Comment: Speci men Type: BLOOD SPECIMENOrdering Facility: [facility] Address: [address] [place] [address] Performed By: #### 5 7021-8 ####[facility] LABCLIA [id number] [place] [address] Erythrocyte distribution width (RBC) [Ratio] 14.0 % Normal 11.5-15.0 [facility] Comment on above: Order Comment: Speci men Type: BLOOD SPECIMENOrdering Facility: [facility] Address: [address] [place] [address] Performed By: #### 5 7021-8 ####[facility] LABCLIA [id number] [place] [address] Hematocrit (Bld) [Volume fraction] 36.5 % Normal 36.0-46.0 [facility] Comment on above: Order Comment: Speci men Type: BLOOD SPECIMENOrdering Facility: [facility] Address: [address] [place] [address] Performed By: #### 5 7021-8 ####[facility] LABCLIA [id number] [place] [address] Hemoglobin (Bld) [Mass/Vol] 12.1 g/dL Normal 11.5-15.5 [facility] Comment on above: Order Comment: Speci men Type: BLOOD SPECIMENOrdering Facility: [facility] Address: [address] [place] [address] Performed By: #### 5 7021-8 ####[facility] LABCLIA [id number] [place] [address] Immature granulocytes (Bld) [#/Vol] 10*3/uL Normal <0.10 [facility] Comment on above: Order Comment: Speci men Type: BLOOD SPECIMENOrdering Facility: [facility] Address: [address] [place] [address] Performed By: #### 5 7021-8 ####[facility] LABCLIA [id number] [place] [address] Immature granulocytes/100 WBC (Bld) 0.5 % Normal [facility] Comment on above: Order Comment: Speci men Type: BLOOD SPECIMENOrdering Facility: [facility] Address: [address] [place] [address] Performed By: #### 5 7021-8 ####[facility] LABCLIA [id number] [place] [address] Lymphocytes (Bld) [#/Vol] 0.92 10*3/uL Low 1.00-4.00 [facility] Comment on above: Order Comment: Speci men Type: BLOOD SPECIMENOrdering Facility: [facility] Address: [address] [place] [address] Performed By: #### 5 7021-8 ####[facility] LABCLIA [id number] [place] [address] Lymphocytes/100 WBC (Bld) 20.9 % Normal [facility] Comment on above: Order Comment: Speci men Type: BLOOD SPECIMENOrdering Facility: [facility] Address: [address] [place] [address] Performed By: #### 5 7021-8 ####[facility] LABCLIA [id number] [place] [address] MCH (RBC) [Entitic mass] 31.6 pg Normal 26.0-34.0 [facility] Comment on above: Order Comment: Speci men Type: BLOOD SPECIMENOrdering Facility: [facility] Address: [address] [place] [address] Performed By: #### 5 7021-8 ####[facility] LABCLIA [id number] [place] [address] MCHC (RBC) [Mass/Vol] 33.2 g/dL Normal 30.5-36.0 [facility] Comment on above: Order Comment: Speci men Type: BLOOD SPECIMENOrdering Facility: [facility] Address: [address] [place] [address] Performed By: #### 5 7021-8 ####[facility] LABCLIA [id number] [place] [address] MCV (RBC) [Entitic vol] 95.3 fL Normal 80.0-100.0 [facility] Comment on above: Order Comment: Speci men Type: BLOOD SPECIMENOrdering Facility: [facility] Address: [address] [place] [address] Performed By: #### 5 7021-8 ####[facility] LABCLIA [id number] [place] [address] Monocytes (Bld) [#/Vol] 0.24 10*3/uL Normal <0.87 [facility] Comment on above: Order Comment: Speci men Type: BLOOD SPECIMENOrdering Facility: [facility] Address: [address] [place] [address] Performed By: #### 5 7021-8 ####[facility] LABCLIA [id number] [place] [address] Monocytes/100 WBC (Bld) 5.5 % Normal [facility] Comment on above: Order Comment: Speci men Type: BLOOD SPECIMENOrdering Facility: [facility] Address: [address] [place] [address] Performed By: #### 5 7021-8 ####[facility] LABCLIA [id number] [place] [address] Neutrophils (Bld) [#/Vol] 2.75 10*3/uL Normal 1.45-7.50 [facility] Comment on above: Order Comment: Speci men Type: BLOOD SPECIMENOrdering Facility: [facility] Address: [address] [place] [address] Performed By: #### 5 7021-8 ####[facility] LABCLIA [id number] [place] [address] Neutrophils/100 WBC (Bld) 62.4 % Normal [facility] Comment on above: Order Comment: Speci men Type: BLOOD SPECIMENOrdering Facility: [facility] Address: [address] [place] [address] Performed By: #### 5 7021-8 ####[facility] LABCLIA [id number] [place] [address] Nucleated RBC (Bld) [#/Vol] 10*3/uL Normal <0.01 [facility] Comment on above: Order Comment: Speci men Type: BLOOD SPECIMENOrdering Facility: [facility] Address: [address] [place] [address] Performed By: #### 5 7021-8 ####[facility] LABCLIA [id number] [place] [address] Nucleated RBC/100 WBC (Bld) [Ratio] 0.0 /100 WBC Normal [facility] Comment on above: Order Comment: Speci men Type: BLOOD SPECIMENOrdering Facility: [facility] Address: [address] [place] [address] Performed By: #### 5 7021-8 ####[facility] LABCLIA [id number] [place] [address] Platelet mean volume (Bld) [Entitic vol] 9.0 fL Normal 9.0-12.7 [facility] Comment on above: Order Comment: Speci men Type: BLOOD SPECIMENOrdering Facility: [facility] Address: [address] [place] [address] Performed By: #### 5 7021-8 ####[facility] LABCLIA [id number] [place] [address] Platelets (Bld) [#/Vol] 237 10*3/uL Normal 150-400 [facility] Comment on above: Order Comment: Speci men Type: BLOOD SPECIMENOrdering Facility: [facility] Address: [address] [place] [address] Performed By: #### 5 7021-8 ####[facility] LABCLIA [id number] [place] [address] RBC (Bld) [#/Vol] 3.83 10*6/uL Low 3.90-5.20 [facility] Comment on above: Order Comment: Speci men Type: BLOOD SPECIMENOrdering Facility: [facility] Address: [address] [place] [address] Performed By: #### 5 7021-8 ####[facility] LABCLIA [id number] [place] [address] WBC (Bld) [#/Vol] 4.40 10*3/uL Normal 3.70-11.00 [facility] Comment on above: Order Comment: Speci men Type: BLOOD SPECIMENOrdering Facility: [facility] Address: [address] [place] [address] Performed By: #### 5 7021-8 ####[facility] LABCLIA [id number] [place] [address] Comprehensive metabolic 2000 panelOrdered By: Lebron Pederson on 06-01-2024 Albumin [Mass/Vol] 4.0 g/dL 3.9 - 4.9 g/dL [facility] ALP [Catalytic activity/Vol] 90 U/L 34 - 123 U/L [facility] ALT [Catalytic activity/Vol] 18 U/L 7 - 38 U/L [facility] Anion gap [Moles/Vol] 8 mmol/L 8 - 15 mmol/L [facility] AST [Catalytic activity/Vol] 17 U/L 13 - 35 U/L [facility] Bilirubin [Mass/Vol] 0.3 mg/dL 0.2 - 1 .3 mg/dL [facility] Calcium [Mass/Vol] 9.8 mg/dL 8.5 - 10. 2 mg/dL [facility] Chloride [Moles/Vol] 104 mmol/L 98 - 10 7 mmol/L [facility] CO2 [Moles/Vol] 26 mmol/L 22 - 30 mmol/L [facility] Creatinine [Mass/Vol] 1.92 mg/dL High 0.58 - 0.96 mg/dL [facility] GFR/1.73 sq M.predicted among non-blacks MDRD (S/P/Bld) [Vol rate/Area] 28 mL/min/{1.73_m2} Low - PINF [facility] Comment on above: Estimated Glomerular Filtration Rate (eGFR) is calculated using the 2020 CKD-EPI creatinine equation. This equation utilizes serum creatinine, sex, and age as parameters. The creatinine assay has traceable calibration to isotope dilution-mass spectrometry. Refer to KDIGO guidelines for clinical interpretation. In patients with unstable renal function, e.g. those with acute kidney injury, the eGFR may not accurately reflect actual GFR. Glucose [Mass/Vol] 146 mg/dL High 74 - 99 mg/dL [facility] Comment on above: The [place] Diabete s Association (ADA) provides guidance for cutoff values [...] Standards of Medical Care in Diabetes 2016, [place] [employer]. Diabetes Care. 2016.39(Suppl 1). Interpretation and review of laboratory results Abnormal [facility] Potassium [Moles/Vol] 4.5 mmol/L 3.7 - 5.1 mmol/L [facility] Protein [Mass/Vol] 6.7 g/dL 6.3 - 8.0 g/dL [facility] Sodium [Moles/Vol] 138 mmol/L 136 - 144 mmol/L [facility] Urea nitrogen [Mass/Vol] 29 mg/dL High 7 - 21 mg/dL [facility] Comprehensive metabolic 2000 panelon 06-01-2024 Albumin [Mass/Vol] 4.0 g/dL Normal 3.9-4.9 [facility] Comment on above: Order Comment: Speci men Type: BLOOD SPECIMENOrdering Facility: [facility] Address: [address] [place] [address] Performed By: #### 2 4323-8 ####[facility] LABCLIA [id number] [place] [address] ALP [Catalytic activity/Vol] 90 U/L Normal 34-123 [facility] Comment on above: Order Comment: Speci men Type: BLOOD SPECIMENOrdering Facility: [facility] Address: [address] [place] [address] Performed By: #### 2 4323-8 ####[facility] LABCLIA [id number] [place] [address] ALT [Catalytic activity/Vol] 18 U/L Normal 7-38 [facility] Comment on above: Order Comment: Speci men Type: BLOOD SPECIMENOrdering Facility: [facility] Address: [address] [place] [address] Performed By: #### 2 4323-8 ####[facility] LABCLIA [id number] [place] [address] Anion gap [Moles/Vol] 8 mmol/L Normal 8-15 [facility] Comment on above: Order Comment: Speci men Type: BLOOD SPECIMENOrdering Facility: [facility] Address: [address] [place] [address] Performed By: #### 2 4323-8 ####[facility] LABCLIA [id number] [place] [address] AST [Catalytic activity/Vol] 17 U/L Normal 13-35 [facility] Comment on above: Order Comment: Speci men Type: BLOOD SPECIMENOrdering Facility: [facility] Address: [address] [place] [address] Performed By: #### 2 4323-8 ####[facility] LABCLIA [id number] [place] [address] Bilirubin [Mass/Vol] 0.3 mg/dL Normal 0.2-1.3 [facility] Comment on above: Order Comment: Speci men Type: BLOOD SPECIMENOrdering Facility: [facility] Address: [address] [place] [address] Performed By: #### 2 4323-8 ####[facility] LABCLIA [id number] [place] [address] Calcium [Mass/Vol] 9.8 mg/dL Normal 8.5-10.2 [facility] Comment on above: Order Comment: Speci men Type: BLOOD SPECIMENOrdering Facility: [facility] Address: [address] [place] [address] Performed By: #### 2 4323-8 ####[facility] LABCLIA [id number] [place] [address] Chloride [Moles/Vol] 104 mmol/L Normal 98-107 [facility] Comment on above: Order Comment: Speci men Type: BLOOD SPECIMENOrdering Facility: [facility] Address: [address] [place] [address] Performed By: #### 2 4323-8 ####[facility] LABCLIA [id number] [place] [address] CO2 [Moles/Vol] 26 mmol/L Normal 22-30 [facility] Comment on above: Order Comment: Speci men Type: BLOOD SPECIMENOrdering Facility: [facility] Address: [address] [place] [address] Performed By: #### 2 4323-8 ####[facility] LABCLIA [id number] [place] [address] Creatinine [Mass/Vol] 1.92 mg/dL High 0.58-0.96 [facility] Comment on above: Order Comment: Alison mccain Type: BLOOD SPECIMENOrdering Facility: [facility] Address: [address] [place], [place] [id number] Performed By: #### 2 4323-8 ####[facility] LABCLIA [id number] [place] [address] Creatinine and Glomerular filtration rate.predicted panel (S/P/Bld) 28 mL/min/1.73m??? Low >=60 [facility] Comment on above: Order Comment: Alison mccain Type: BLOOD SPECIMENOrdering Facility: [facility] Address: [address] [place] [address] Result Comment: Cristal mated Glomerular Filtration Rate [...] actual GFR. Performed By: #### 2 4323-8 ####[facility] LABCLIA [id number] [place] [address] Glucose [Mass/Vol] 146 mg/dL High 74-99 [facility] Comment on above: Order Comment: Alison mccain Type: BLOOD SPECIMENOrdering Facility: [facility] Address: [address] [place], [place] [address] Result Comment: The [place] Diabetes Association (ADA) provides guidance for cutoff [...] Standards of Medical Care in Diabetes 2016, [place] Diabetes Association. Diabetes Care. 2016.39(Suppl 1). Performed By: #### 2 4323-8 ####[facility] LABCLIA [id number] [place] [address] Potassium [Moles/Vol] 4.5 mmol/L Normal 3.7-5.1 [facility] Comment on above: Order Comment: Speci men Type: BLOOD SPECIMENOrdering Facility: [facility] Address: [address] [place] [address] Performed By: #### 2 4323-8 ####[facility] LABCLIA [id number] [place] [address] Protein [Mass/Vol] 6.7 g/dL Normal 6.3-8.0 [facility] Comment on above: Order Comment: Speci men Type: BLOOD SPECIMENOrdering Facility: [facility] Address: [address] [place] [address] Performed By: #### 2 4323-8 ####[facility] LABCLIA [id number] [place] [address] Sodium [Moles/Vol] 138 mmol/L Normal 136-144 [facility] Comment on above: Order Comment: Speci men Type: BLOOD SPECIMENOrdering Facility: [facility] Address: [address] [place] [address] Performed By: #### 2 4323-8 ####[facility] LABCLIA [id number] [place] [address] Urea nitrogen [Mass/Vol] 29 mg/dL High 7-21 [facility] Comment on above: Order Comment: Speci men Type: BLOOD SPECIMENOrdering Facility: [facility] Address: [address] [place] [address] Performed By: #### 2 4323-8 ####[facility] LABCLIA [id number] [place] [address] TSH SerPl-aCncon 06-01-2024 TSH Qn 4.750 m[IU]/L High 0.270-4.20 0 [facility] Comment on above: Order Comment: Speci men Type: BLOOD SPECIMENOrdering Facility: [facility] Address: [address] [place] [address] Performed By: #### 3 016-3 ####[facility] LABCLIA [id number] [place] [address] [place] HISTORY PHYSICALon HISTORY PHYSICAL Normal [facility] CNCNPATEDon 05-15-2024 CNCNPATED Normal [facility] CBC W Auto Differential pane l (Bld)on 05-05-2024 Basophils (Bld) [#/Vol] 0.04 10*3/uL Normal <0.11 [facility] Comment on above: Order Comment: Speci men Type: BLOOD SPECIMENOrdering Facility: [facility] Address: [address] [place] [address] Performed By: #### 5 7021-8 ####[facility] LABCLIA [id number] [place] [address] [place] Basophils/100 WBC (Bld) 0.6 % Normal [facility] Comment on above: Order Comment: Speci men Type: BLOOD SPECIMENOrdering Facility: [facility] Address: [address] [place] [address] Performed By: #### 5 7021-8 ####[facility] LABCLIA [id number] [place] [address] [place] Differential cell count method Nom (Bld) Auto Normal [facility] Comment on above: Order Comment: Speci men Type: BLOOD SPECIMENOrdering Facility: [facility] Address: [address] [place] [address] Performed By: #### 5 7021-8 ####[facility] LABCLIA [id number] [place] [address] [place] Eosinophils (Bld) [#/Vol] 0.48 10*3/uL High <0.46 [facility] Comment on above: Order Comment: Speci men Type: BLOOD SPECIMENOrdering Facility: [facility] Address: [address] [place] [address] Performed By: #### 5 7021-8 ####[facility] LABCLIA [id number] [place] [address] [place] Eosinophils/100 WBC (Bld) 6.9 % Normal [facility] Comment on above: Order Comment: Speci men Type: BLOOD SPECIMENOrdering Facility: [facility] Address: [address] [place] [address] Performed By: #### 5 7021-8 ####[facility] LABCLIA [id number] [place] [address] [place] Erythrocyte distribution width (RBC) [Ratio] 13.4 % Normal 11.5-15.0 [facility] Comment on above: Order Comment: Speci men Type: BLOOD SPECIMENOrdering Facility: [facility] Address: [address] [place] [address] Performed By: #### 5 7021-8 ####[facility] LABCLIA [id number] [place] [address] [place] Hematocrit (Bld) [Volume fraction] 37.0 % Normal 36.0-46.0 [facility] Comment on above: Order Comment: Speci men Type: BLOOD SPECIMENOrdering Facility: [facility] Address: [address] [place] [address] Performed By: #### 5 7021-8 ####[facility] LABCLIA [id number] [place] [address] [place] Hemoglobin (Bld) [Mass/Vol] 11.8 g/dL Normal 11.5-15.5 [facility] Comment on above: Order Comment: Speci men Type: BLOOD SPECIMENOrdering Facility: [facility] Address: [address] [place] [address] Performed By: #### 5 7021-8 ####[facility] LABCLIA [id number] [place] [address] [place] Immature granulocytes (Bld) [#/Vol] 10*3/uL Normal <0.10 [facility] Comment on above: Order Comment: Speci men Type: BLOOD SPECIMENOrdering Facility: [facility] Address: [address] [place] [address] Performed By: #### 5 7021-8 ####[facility] LABCLIA [id number] [address] [place] Immature granulocytes/100 WBC (Bld) 0.3 % Normal [facility] Comment on above: Order Comment: Speci men Type: BLOOD SPECIMENOrdering Facility: [facility] Address: [address] [place] [address] Performed By: #### 5 7021-8 ####[facility] LABCLIA [id number] [place] [address] [place] Lymphocytes (Bld) [#/Vol] 1.07 10*3/uL Normal 1.00-4.00 [facility] Comment on above: Order Comment: Speci men Type: BLOOD SPECIMENOrdering Facility: [facility] Address: [address] [place] [address] Performed By: #### 5 7021-8 ####[facility] LABCLIA [id number] [place] [address] [place] Lymphocytes/100 WBC (Bld) 15.4 % Normal [facility] Comment on above: Order Comment: Speci men Type: BLOOD SPECIMENOrdering Facility: [facility] Address: [address] [place] [address] Performed By: #### 5 7021-8 ####[facility] LABCLIA [id number] [place] [address] [place] MCH (RBC) [Entitic mass] 31.1 pg Normal 26.0-34.0 [facility] Comment on above: Order Comment: Speci men Type: BLOOD SPECIMENOrdering Facility: [facility] Address: [address] [place] [address] Performed By: #### 5 7021-8 ####[facility] LABCLIA [id number] [place] [address] [place] MCHC (RBC) [Mass/Vol] 31.9 g/dL Normal 30.5-36.0 [facility] Comment on above: Order Comment: Speci men Type: BLOOD SPECIMENOrdering Facility: [facility] Address: [address] [place] [address] Performed By: #### 5 7021-8 ####[facility] LABIA [id number] [place] [address] [place] MCV (RBC) [Entitic vol] 97.4 fL Normal 80.0-100.0 [facility] Comment on above: Order Comment: Speci men Type: BLOOD SPECIMENOrdering Facility: [facility] Address: [address] [place] [address] Performed By: #### 5 7021-8 ####[facility] LABIA [id number] [place] [address] [place] Monocytes (Bld) [#/Vol] 0.97 10*3/uL High <0.87 [facility] Comment on above: Order Comment: Speci men Type: BLOOD SPECIMENOrdering Facility: [facility] Address: [address] [place] [address] Performed By: #### 5 7021-8 ####[facility] LABCLIA [id number] [address] [place] Monocytes/100 WBC (Bld) 13.9 % Normal [facility] Comment on above: Order Comment: Speci men Type: BLOOD SPECIMENOrdering Facility: [facility] Address: [address] [place] [address] Performed By: #### 5 7021-8 ####[facility] LABCLIA [id number] [place] [address] [place] Neutrophils (Bld) [#/Vol] 4.38 10*3/uL Normal 1.45-7.50 [facility] Comment on above: Order Comment: Speci men Type: BLOOD SPECIMENOrdering Facility: [facility] Address: [address] [place] [address] Performed By: #### 5 7021-8 ####[facility] LABCLIA [id number] [place] [address] [place] Neutrophils/100 WBC (Bld) 62.9 % Normal [facility] Comment on above: Order Comment: Speci men Type: BLOOD SPECIMENOrdering Facility: [facility] Address: [address] [place] [address] Performed By: #### 5 7021-8 ####[facility] LABCLIA [id number] [place] [address] [place] Nucleated RBC (Bld) [#/Vol] 10*3/uL Normal <0.01 [facility] Comment on above: Order Comment: Speci men Type: BLOOD SPECIMENOrdering Facility: [facility] Address: [address] [place] [address] Performed By: #### 5 7021-8 ####[facility] LABCLIA [id number] [place] [address] [place] Nucleated RBC/100 WBC (Bld) [Ratio] 0.0 /100 WBC Normal [facility] Comment on above: Order Comment: Speci men Type: BLOOD SPECIMENOrdering Facility: [facility] Address: [address] [place] [address] Performed By: #### 5 7021-8 ####[facility] LABCLIA [id number] [place] [address] [place] Platelet mean volume (Bld) [Entitic vol] 9.8 fL Normal 9.0-12.7 [facility] Comment on above: Order Comment: Speci men Type: BLOOD SPECIMENOrdering Facility: [facility] Address: [address] [place] [address] Performed By: #### 5 7021-8 ####[facility] LABIA [id number] [place] [address] [place] Platelets (Bld) [#/Vol] 318 10*3/uL Normal 150-400 [facility] Comment on above: Order Comment: Speci men Type: BLOOD SPECIMENOrdering Facility: [facility] Address: [address] [place] [address] Performed By: #### 5 7021-8 ####[facility] LABIA [id number] [place] [address] [place] RBC (Bld) [#/Vol] 3.80 10*6/uL Low 3.90-5.20 [facility] Comment on above: Order Comment: Speci men Type: BLOOD SPECIMENOrdering Facility: [facility] Address: [address] [place] [address] Performed By: #### 5 7021-8 ####[facility] LABIA [id number] [place] [address] [place] WBC (Bld) [#/Vol] 6.96 10*3/uL Normal 3.70-11.00 [facility] Comment on above: Order Comment: Speci men Type: BLOOD SPECIMENOrdering Facility: [facility] Address: [address] [place] [address] Performed By: #### 5 7021-8 ####[facility] LABCLIA [id number] [place] [id number] [place] CNOVon 05-05-2024 CNOV Normal [facility] metabolic 2000 panelon 05-05-2024 Albumin [Mass/Vol] 3.6 g/dL Low 3.9-4.9 [facility] Comment on above: Order Comment: Speci men Type: BLOOD SPECIMENOrdering Facility: [facility] Address: [address] [place] [address] Performed By: #### 2 4323-8 ####[facility] LABCLIA [id number] [place] [address] [place] ALP [Catalytic activity/Vol] 111 U/L Normal 34-123 [facility] Comment on above: Order Comment: Speci men Type: BLOOD SPECIMENOrdering Facility: [facility] Address: [address] [place] [address] Performed By: #### 2 4323-8 ####[facility] LABCLIA [id number] [place] [address] [place] ALT [Catalytic activity/Vol] 20 U/L Normal 7-38 [facility] Comment on above: Order Comment: Speci men Type: BLOOD SPECIMENOrdering Facility: [facility] Address: [address] [place] [address] Performed By: #### 2 4323-8 ####[facility] LABCLIA [id number] [place] [address] [place] Anion gap [Moles/Vol] 12 mmol/L Normal 8-15 [facility] Comment on above: Order Comment: Speci men Type: BLOOD SPECIMENOrdering Facility: [facility] Address: [address] [place] [address] Performed By: #### 2 4323-8 ####[facility] LABCLIA [id number] [place] [address] [place] AST [Catalytic activity/Vol] 18 U/L Normal 13-35 [facility] Comment on above: Order Comment: Speci men Type: BLOOD SPECIMENOrdering Facility: [facility] Address: [address] [place] [address] Performed By: #### 2 4323-8 ####[facility] LABCLIA [id number] [place] [address] [place] Bilirubin [Mass/Vol] 0.3 mg/dL Normal 0.2-1.3 [facility] Comment on above: Order Comment: Speci men Type: BLOOD SPECIMENOrdering Facility: [facility] Address: [address] [place] [address] Performed By: #### 2 4323-8 ####[facility] LABCLIA [id number] [place] [address] [place] Calcium [Mass/Vol] 8.6 mg/dL Normal 8.5-10.2 [facility] Comment on above: Order Comment: Speci men Type: BLOOD SPECIMENOrdering Facility: [facility] Address: [address] [place] [address] Performed By: #### 2 4323-8 ####[facility] LABCLIA [id number] [place] [address] [place] Chloride [Moles/Vol] 104 mmol/L Normal 98-107 [facility] Comment on above: Order Comment: Speci men Type: BLOOD SPECIMENOrdering Facility: [facility] Address: [address] [place] [address] Performed By: #### 2 4323-8 ####[facility] LABCLIA [id number] [place] [address] [place] CO2 [Moles/Vol] 23 mmol/L Normal 22-30 [facility] Comment on above: Order Comment: Speci men Type: BLOOD SPECIMENOrdering Facility: [facility] Address: [address] [place] [address] Performed By: #### 2 4323-8 ####[facility] LABCLIA [id number] [place] [address] [place] Creatinine [Mass/Vol] 1.13 mg/dL High 0.58-0.96 [facility] Comment on above: Order Comment: Alison mccain Type: BLOOD SPECIMENOrdering Facility: [facility] Address: [address] [place] [address] Performed By: #### 2 4323-8 ####[facility] LABCLIA [id number] [place] [address] [place] Creatinine and Glomerular filtration rate.predicted panel (S/P/Bld) 53 mL/min/1.73m??? Low >=60 [facility] Comment on above: Order Comment: Alison mccain Type: BLOOD SPECIMENOrdering Facility: [facility] Address: [address] [place] [address] Result Comment: Cristal mated Glomerular Filtration Rate [...] actual GFR. Performed By: #### 2 4323-8 ####[facility] LABCLIA [id number] [place] [address] [place] Glucose [Mass/Vol] 147 mg/dL High 74-99 [facility] Comment on above: Order Comment: Alison mccain Type: BLOOD SPECIMENOrdering Facility: [facility] Address: [address] [place] [address] Result Comment: The [place] Diabetes Association (ADA) provides guidance for cutoff [...] Standards of Medical Care in Diabetes 2016, [place] [employer]. Diabetes Care. 2016.39(Suppl 1). Performed By: #### 2 4323-8 ####[facility] LABCLIA [id number] [place] [address] [place] Potassium [Moles/Vol] 4.3 mmol/L Normal 3.7-5.1 [facility] Comment on above: Order Comment: Speci men Type: BLOOD SPECIMENOrdering Facility: [facility] Address: [address] [place] [address] Performed By: #### 2 4323-8 ####[facility] LABCLIA [id number] [place] [address] [place] Protein [Mass/Vol] 6.0 g/dL Low 6.3-8.0 [facility] Comment on above: Order Comment: Speci men Type: BLOOD SPECIMENOrdering Facility: [facility] Address: [address] [place] [address] Performed By: #### 2 4323-8 ####[facility] LABCLIA [id number] [place] [address] [place] Sodium [Moles/Vol] 139 mmol/L Normal 136-144 [facility] Comment on above: Order Comment: Speci men Type: BLOOD SPECIMENOrdering Facility: [facility] Address: [address] [place] [address] Performed By: #### 2 4323-8 ####[facility] LABCLIA [id number] [place] [address] [place] Urea nitrogen [Mass/Vol] 15 mg/dL Normal 7-21 [facility] Comment on above: Order Comment: Speci men Type: BLOOD SPECIMENOrdering Facility: [facility] Address: [address] [place] [address] Performed By: #### 2 4323-8 ####[facility] LABCLIA [id number] [place] [address] [place] CNPNon 04-30-2024 CNPN Normal [facility] 25(OH)D3 Elizabethl-Michael 2023 25-hydroxyvitamin D3 [Mass/Vol] 62.4 ng/mL Normal 31.0-80.0 [facility] Comment on above: Order Comment: Speci men Type: BLOOD SPECIMENOrdering Facility: [facility] Address: [facility] [address] [place] [address] Result Comment: Clas sification of 25 [place] Vitamin D status:Deficiency/Insufficiency: < or = 30 ng/ml.Sufficiency/Optimal Levels: 31-80 ng/mLToxicity: > 100 ng/mL.Test performed by chemiluminescent immunoassay. Performed By: #### 1 989-3 ####[facility] LABCLIA [id number] [place] [address] [place] 25-hydroxyvitamin D3 [Mass/V ol]on 04-21-2024 Interpretation and review of laboratory results Normal [facility] The reference range interval was based on an analysis of samples from healthy adults and may not pertain to children from 0-18 years old. [facility] CBC W Auto Differential pane l (Bld)on 04-21-2024 Basophils (Bld) [#/Vol] 0.05 10*3/uL [place] Basophils/100 WBC (Bld) 0.8 % [facility] Differential cell count method Nom (Bld) Auto [facility] Eosinophils (Bld) [#/Vol] 0.68 10*3/uL [facility] Eosinophils/100 WBC (Bld) 10.6 % [facility] Erythrocyte distribution width (RBC) [Ratio] 13.3 % 11.5 - 15.0 % [facility] Hematocrit (Bld) [Volume fraction] 39.4 % 36.0 - 46.0 % [facility] Hemoglobin (Bld) [Mass/Vol] 13.0 g/dL 11.5 - 15.5 g/dL [facility] Immature granulocytes (Bld) [#/Vol] NINF [facility] Immature granulocytes/100 WBC (Bld) 0.3 % [facility] Interpretation and review of laboratory results Abnormal [facility] Lymphocytes (Bld) [#/Vol] 0.86 10*3/uL Low [facility] Lymphocytes/100 WBC (Bld) 13.4 % [facility] MCH (RBC) [Entitic mass] 31.8 pg 26.0 - 34.0 pg [facility] MCHC (RBC) [Mass/Vol] 33.0 g/dL 30.5 - 36.0 g/dL [facility] MCV (RBC) [Entitic vol] 96.3 fL 80.0 - 100.0 fL [facility] Monocytes (Bld) [#/Vol] 0.50 10*3/uL [facility] Monocytes/100 WBC (Bld) 7.8 % [facility] Neutrophils (Bld) [#/Vol] 4.33 10*3/uL [facility] Neutrophils/100 WBC (Bld) 67.1 % [facility] Nucleated RBC (Bld) [#/Vol] NINF [facility] Nucleated RBC/100 WBC (Bld) [Ratio] 0.0 % /100 WBC [facility] Platelet mean volume (Bld) [Entitic vol] 9.0 fL 9.0 - 12.7 fL [facility] Platelets (Bld) [#/Vol] 320 10*3/uL [facility] RBC (Bld) [#/Vol] 4.09 10*6/uL 3.90 - 5.20 m/uL [facility] WBC (Bld) [#/Vol] 6.44 10*3/uL [facility] Basophils (Bld) [#/Vol] 0.05 10*3/uL Normal <0.11 [facility] Comment on above: Order Comment: Speci men Type: BLOOD SPECIMENOrdering Facility: [facility] Address: [address] [place] [address] Performed By: #### 5 7021-8 ####[facility] LABORATORYCLIA [id number] [place] [id number] [place] [facility] Basophils/100 WBC (Bld) 0.8 % Normal [facility] Comment on above: Order Comment: Speci men Type: BLOOD SPECIMENOrdering Facility: [facility] Address: [address] [place] [address] Performed By: #### 5 7021-8 ####[facility] LABORATORYIA [id number] [place] [address] [place] Differential cell count method Nom (Bld) Auto Normal [facility] Comment on above: Order Comment: Speci men Type: BLOOD SPECIMENOrdering Facility: [facility] Address: [address] [place] [address] Performed By: #### 5 7021-8 ####[facility] [id number] [facility] [place] [address] [place] Eosinophils (Bld) [#/Vol] 0.68 10*3/uL High <0.46 [facility] Comment on above: Order Comment: Speci men Type: BLOOD SPECIMENOrdering Facility: [facility] Address: [address] [place] [address] Performed By: #### 5 7021-8 ####[facility]ITAL[facility] [id number] [place] [address] [place] Eosinophils/100 WBC (Bld) 10.6 % Normal [facility] Comment on above: Order Comment: Speci men Type: BLOOD SPECIMENOrdering Facility: [facility] Address: [address] [place] [address] Performed By: #### 5 7021-8 ####[facility]ITAL[facility] [id number] [place] [address] [place] Erythrocyte distribution width (RBC) [Ratio] 13.3 % Normal 11.5-15.0 [facility] Comment on above: Order Comment: Speci men Type: BLOOD SPECIMENOrdering Facility: [facility] Address: [address] [place] [address] Performed By: #### 5 7021-8 ####[facility] [id number] [place] [address] [place] Hematocrit (Bld) [Volume fraction] 39.4 % Normal 36.0-46.0 [facility] Comment on above: Order Comment: Speci men Type: BLOOD SPECIMENOrdering Facility: [facility] Address: [address] [place] [address] Performed By: #### 5 7021-8 ####[facility] [id number] [place] [address] [place] Hemoglobin (Bld) [Mass/Vol] 13.0 g/dL Normal 11.5-15.5 [facility] Comment on above: Order Comment: Speci men Type: BLOOD SPECIMENOrdering Facility: [facility] Address: [address] [place] [address] Performed By: #### 5 7021-8 ####[facility] [id number] [place] [address] [place] Immature granulocytes (Bld) [#/Vol] 10*3/uL Normal <0.10 [facility] Comment on above: Order Comment: Speci men Type: BLOOD SPECIMENOrdering Facility: [facility] Address: [address] [place] [address] Performed By: #### 5 7021-8 ####[facility] [id number] [place] [address] [place] [place] Immature granulocytes/100 WBC (Bld) 0.3 % Normal [facility] Comment on above: Order Comment: Speci men Type: BLOOD SPECIMENOrdering Facility: [facility] Address: [address] [place] [address] Performed By: #### 5 7021-8 ####[facility] [id number] [place] [address] [place] Lymphocytes (Bld) [#/Vol] 0.86 10*3/uL Low 1.00-4.00 [facility] Comment on above: Order Comment: Speci men Type: BLOOD SPECIMENOrdering Facility: [facility] Address: [address] [place] [address] Performed By: #### 5 7021-8 ####[facility] LABORATORYIA [id number] [place] [address] [place] Lymphocytes/100 WBC (Bld) 13.4 % Normal [facility] Comment on above: Order Comment: Speci men Type: BLOOD SPECIMENOrdering Facility: [facility] Address: [address] [place] [address] Performed By: #### 5 7021-8 ####[facility] [id number] [place] [address] [place] MCH (RBC) [Entitic mass] 31.8 pg Normal 26.0-34.0 [facility] Comment on above: Order Comment: Speci men Type: BLOOD SPECIMENOrdering Facility: [facility] Address: [address] [place] [address] Performed By: #### 5 7021-8 ####[facility] [id number] [place] [address] [place] MCHC (RBC) [Mass/Vol] 33.0 g/dL Normal 30.5-36.0 [facility] Comment on above: Order Comment: Speci men Type: BLOOD SPECIMENOrdering Facility: [facility] Address: [address] [place] [address] Performed By: #### 5 7021-8 ####[facility] [id number] [place] [address] [place] MCV (RBC) [Entitic vol] 96.3 fL Normal 80.0-100.0 [facility] Comment on above: Order Comment: Speci men Type: BLOOD SPECIMENOrdering Facility: [facility] Address: [address] [place] [address] Performed By: #### 5 7021-8 ####[facility] [id number] [place] [id number] [place] Monocytes (Bld) [#/Vol] 0.50 10*3/uL Normal <0.87 [facility] Comment on above: Order Comment: Speci men Type: BLOOD SPECIMENOrdering Facility: [facility] Address: [address] [place] [address] Performed By: #### 5 7021-8 ####[facility] [id number] [place] [address] [place] Monocytes/100 WBC (Bld) 7.8 % Normal [facility] Comment on above: Order Comment: Speci men Type: BLOOD SPECIMENOrdering Facility: [facility] Address: [address] [place] [address] Performed By: #### 5 7021-8 ####[facility] [id number] [place] [address] [place] Neutrophils (Bld) [#/Vol] 4.33 10*3/uL Normal 1.45-7.50 [facility] Comment on above: Order Comment: Speci men Type: BLOOD SPECIMENOrdering Facility: [facility] Address: [address] [place] [address] Performed By: #### 5 7021-8 ####[facility] [id number] [facility] [place] [address] [place] Neutrophils/100 WBC (Bld) 67.1 % Normal [facility] Comment on above: Order Comment: Speci men Type: BLOOD SPECIMENOrdering Facility: [facility] Address: [address] [place] [address] Performed By: #### 5 7021-8 ####[facility] [id number] [place] [address] [place] Nucleated RBC (Bld) [#/Vol] 10*3/uL Normal <0.01 [facility] Comment on above: Order Comment: Speci men Type: BLOOD SPECIMENOrdering Facility: [facility] Address: [address] [place] [address] Performed By: #### 5 7021-8 ####[facility] [id number] [place] [address] [place] Nucleated RBC/100 WBC (Bld) [Ratio] 0.0 /100 WBC Normal [facility] Comment on above: Order Comment: Speci men Type: BLOOD SPECIMENOrdering Facility: [facility] Address: [address] [place] [address] Performed By: #### 5 7021-8 ####[facility] [id number] [place] [address] [place] Platelet mean volume (Bld) [Entitic vol] 9.0 fL Normal 9.0-12.7 [facility] Comment on above: Order Comment: Speci men Type: BLOOD SPECIMENOrdering Facility: [facility] Address: [address] [place] [address] Performed By: #### 5 7021-8 ####[facility] [id number] [place] [address] [place] Platelets (Bld) [#/Vol] 320 10*3/uL Normal 150-400 [facility] Comment on above: Order Comment: Speci men Type: BLOOD SPECIMENOrdering Facility: [facility] Address: [address] [place] [address] Performed By: #### 5 7021-8 ####[facility] [id number] [place] [address] [place] RBC (Bld) [#/Vol] 4.09 10*6/uL Normal 3.90-5.20 [facility] Comment on above: Order Comment: Speci men Type: BLOOD SPECIMENOrdering Facility: [facility] Address: [address] [place] [address] Performed By: #### 5 7021-8 ####[facility] [id number] [place] [address] [place] WBC (Bld) [#/Vol] 6.44 10*3/uL Normal 3.70-11.00 [facility] Comment on above: Order Comment: Speci men Type: BLOOD SPECIMENOrdering Facility: [facility] Address: [address] [place] [address] Performed By: #### 5 7021-8 ####[facility] LABORATORYCLIA [id number] [facility] [place] [address] [place] CNOVSPon 04-21-2024 CNOVSP Normal [facility] CNPNon 04-21-2024 CNPN Normal [facility] Comprehensive metabolic 2000 panelon 04-21-2024 Albumin [Mass/Vol] 3.8 g/dL Low 3.9 - 4.9 g/dL [facility] ALP [Catalytic activity/Vol] 117 U/L 34 - 123 U/L [facility] ALT [Catalytic activity/Vol] 23 U/L 7 - 38 U/L [facility] Anion gap [Moles/Vol] 12 mmol/L 8 - 15 mmol/L [facility] AST [Catalytic activity/Vol] 20 U/L 13 - 35 U/L [facility] Bilirubin [Mass/Vol] 0.4 mg/dL 0.2 - 1 .3 mg/dL [facility] Calcium [Mass/Vol] 9.2 mg/dL 8.5 - 10. 2 mg/dL [facility] Chloride [Moles/Vol] 102 mmol/L 98 - 10 7 mmol/L [facility] CO2 [Moles/Vol] 28 mmol/L 22 - 30 mmol/L [facility] Creatinine [Mass/Vol] 1.13 mg/dL High 0.58 - 0.96 mg/dL [facility] GFR/1.73 sq M.predicted among non-blacks MDRD (S/P/Bld) [Vol rate/Area] 53 mL/min/{1.73_m2} Low - PINF [facility] Comment on above: Estimated Glomerular Filtration Rate (eGFR) is calculated using the 2020 CKD-EPI creatinine equation. This equation utilizes serum creatinine, sex, and age as parameters. The creatinine assay has traceable calibration to isotope dilution-mass spectrometry. Refer to KDIGO guidelines for clinical interpretation. In patients with unstable renal function, e.g. those with acute kidney injury, the eGFR may not accurately reflect actual GFR. Glucose [Mass/Vol] 148 mg/dL High 74 - 99 mg/dL [facility] Comment on above: The [place] Diabete s Association (ADA) provides guidance for cutoff values [...] Standards of Medical Care in Diabetes 2016, [place] Diabetes Association. Diabetes Care. 2016.39(Suppl 1). Interpretation and review of laboratory results Abnormal [facility] Potassium [Moles/Vol] 4.6 mmol/L 3.7 - 5.1 mmol/L [facility] Protein [Mass/Vol] 6.4 g/dL 6.3 - 8.0 g/dL [facility] Sodium [Moles/Vol] 142 mmol/L 136 - 144 mmol/L [facility] Urea nitrogen [Mass/Vol] 23 mg/dL High 7 - 21 mg/dL [facility] Albumin [Mass/Vol] 3.8 g/dL Low 3.9-4.9 [facility] Comment on above: Order Comment: Speci men Type: BLOOD SPECIMENOrdering Facility: [facility] Address: [address] [place] [address] Performed By: #### 2 4323-8 ####[facility] [id number] [place] [address] [place] ALP [Catalytic activity/Vol] 117 U/L Normal 34-123 [facility] Comment on above: Order Comment: Speci men Type: BLOOD SPECIMENOrdering Facility: [facility] Address: [address] [place] [address] Performed By: #### 2 4323-8 ####[facility] [id number] [place] [address] [place] ALT [Catalytic activity/Vol] 23 U/L Normal 7-38 [facility] Comment on above: Order Comment: Speci men Type: BLOOD SPECIMENOrdering Facility: [facility] Address: [address] [place] [address] Performed By: #### 2 4323-8 ####[facility] [id number] [place] [address] [place] Anion gap [Moles/Vol] 12 mmol/L Normal 8-15 [facility] Comment on above: Order Comment: Speci men Type: BLOOD SPECIMENOrdering Facility: [facility] Address: [address] [place] [address] Performed By: #### 2 4323-8 ####[facility] [id number] [place] [address] [place] AST [Catalytic activity/Vol] 20 U/L Normal 13-35 [facility] Comment on above: Order Comment: Speci men Type: BLOOD SPECIMENOrdering Facility: [facility] Address: [address] [place] [address] Performed By: #### 2 4323-8 ####[facility] [id number] [place] [address] [place] Bilirubin [Mass/Vol] 0.4 mg/dL Normal 0.2-1.3 [facility] Comment on above: Order Comment: Speci men Type: BLOOD SPECIMENOrdering Facility: [facility] Address: [address] [place] [address] Performed By: #### 2 4323-8 ####[facility] [id number] [place] [address] [place] Calcium [Mass/Vol] 9.2 mg/dL Normal 8.5-10.2 [facility] Comment on above: Order Comment: Speci men Type: BLOOD SPECIMENOrdering Facility: [facility] Address: [address] [place] [address] Performed By: #### 2 4323-8 ####[facility] [id number] [place] [address] [place] Chloride [Moles/Vol] 102 mmol/L Normal 98-107 [facility] Comment on above: Order Comment: Speci men Type: BLOOD SPECIMENOrdering Facility: [facility] Address: [address] [place] [address] Performed By: #### 2 4323-8 ####[facility] [id number] [place] [address] [place] CO2 [Moles/Vol] 28 mmol/L Normal 22-30 [facility] Comment on above: Order Comment: Speci men Type: BLOOD SPECIMENOrdering Facility: [facility] Address: [address] [place] [address] Performed By: #### 2 4323-8 ####[facility] [id number] [place] [address] [place] Creatinine [Mass/Vol] 1.13 mg/dL High 0.58-0.96 [facility] Comment on above: Order Comment: Speci men Type: BLOOD SPECIMENOrdering Facility: [facility] Address: [address] [place] [address] Performed By: #### 2 4323-8 ####[facility] [id number] [place] [address] [place] Creatinine and Glomerular filtration rate.predicted panel (S/P/Bld) 53 mL/min/1.73m??? Low >=60 [facility] Comment on above: Order Comment: Speci men Type: BLOOD SPECIMENOrdering Facility: [facility] Address: [address] [place] [address] Result Comment: Cristal mated Glomerular Filtration Rate [...] actual GFR. Performed By: #### 2 4323-8 ####[facility] LABORATORYIA [id number] [facility] [place] [address] [place] Glucose [Mass/Vol] 148 mg/dL High 74-99 [facility] Comment on above: Order Comment: Alison mccain Type: BLOOD SPECIMENOrdering Facility: [facility] Address: [address] [place] [address] Result Comment: The [place] Diabetes Association (ADA) provides guidance for cutoff [...] Standards of Medical Care in Diabetes 2016, [place] Diabetes Association. Diabetes Care. 2016.39(Suppl 1). Performed By: #### 2 4323-8 ####[facility] [id number] [place] [address] [place] Potassium [Moles/Vol] 4.6 mmol/L Normal 3.7-5.1 [facility] Comment on above: Order Comment: Alison mccain Type: BLOOD SPECIMENOrdering Facility: [facility] Address: [address] [place], [place] [address] Performed By: #### 2 4323-8 ####[facility] [id number] [place] [address] [place] Protein [Mass/Vol] 6.4 g/dL Normal 6.3-8.0 [facility] Comment on above: Order Comment: Alison mccain Type: BLOOD SPECIMENOrdering Facility: [facility] Address: [address] [place] [address] Performed By: #### 2 4323-8 ####[facility] [id number] [place] [address] [place] Sodium [Moles/Vol] 142 mmol/L Normal 136-144 [facility] Comment on above: Order Comment: Joeli men Type: BLOOD SPECIMENOrdering Facility: [facility] Address: [address] [place] [address] Performed By: #### 2 4323-8 ####[facility] LABORATORYCLIA [id number] [facility] [place] [address] [place] Urea nitrogen [Mass/Vol] 23 mg/dL High 7-21 [facility] Comment on above: Order Comment: Speci men Type: BLOOD SPECIMENOrdering Facility: [facility] Address: [address] [address] Performed By: #### 2 4323-8 ####[facility] LABORATORYCLIA [id number] [facility] [place] [address] [place] VITAMIN D 25 HYDROXYon 04-21 25-hydroxyvitamin D3 [Mass/Vol] 62.4 ng/mL 31.0 - 80.0 ng/mL [facility] Comment on above: Classification of 25 [place] Vitamin D status: Deficiency/Insufficiency: < or = 30 ng/ml. Sufficiency/Optimal Levels: 31-80 ng/mL Toxicity: > 100 ng/mL. Test performed by chemiluminescent immunoassay. CORNEAL TOPOGRAPHY PENTACAM OU (BOTH EYES)on 03-23-2024 [facility] Radiology Study observation (narrative) [facility] OCT MACULA CIRRUS OU (BOTH E YES)on 03-23-2024 [facility] Radiology Study observation (narrative) [facility] CNOVon 03-19-2024 CNOV Normal [facility] CNOVon 03-11-2024 CNOV Normal [facility] CNPNon 03-04-2024 CNPN Normal [facility] CBC W Auto Differential pane l (Bld)on 03-03-2024 Basophils (Bld) [#/Vol] 0.04 10*3/[facility] Basophils/100 WBC (Bld) 0.5 % [facility] Differential cell count method Nom (Bld) Auto [facility] Eosinophils (Bld) [#/Vol] 0.55 10*3/uL High NINF [facility] Eosinophils/100 WBC (Bld) 7.1 % [facility] Erythrocyte distribution width (RBC) [Ratio] 13.0 % 11.5 - 15.0 % [facility] Hematocrit (Bld) [Volume fraction] 41.7 % 36.0 - 46.0 % [facility] Hemoglobin (Bld) [Mass/Vol] 13.5 g/dL 11.5 - 15.5 g/dL [facility] Immature granulocytes (Bld) [#/Vol] NINF [facility] Immature granulocytes/100 WBC (Bld) 0.3 % [facility] Interpretation and review of laboratory results Abnormal [facility] Lymphocytes (Bld) [#/Vol] 1.93 10*3/uL [facility] Lymphocytes/100 WBC (Bld) 25.1 % [facility] MCH (RBC) [Entitic mass] 32.2 pg 26.0 - 34.0 pg [facility] MCHC (RBC) [Mass/Vol] 32.4 g/dL 30.5 - 36.0 g/dL [facility] MCV (RBC) [Entitic vol] 99.5 fL 80.0 - 100.0 fL [facility] Monocytes (Bld) [#/Vol] 0.65 10*3/uL NINF [facility] Monocytes/100 WBC (Bld) 8.4 % [facility] Neutrophils (Bld) [#/Vol] 4.51 10*3/uL [facility] Neutrophils/100 WBC (Bld) 58.6 % [facility] Nucleated RBC (Bld) [#/Vol] NINF [facility] Nucleated RBC/100 WBC (Bld) [Ratio] 0.0 % /100 WBC [facility] Platelet mean volume (Bld) [Entitic vol] 9.6 fL 9.0 - 12.7 fL [facility] Platelets (Bld) [#/Vol] 291 10*3/uL [facility] RBC (Bld) [#/Vol] 4.19 10*6/uL 3.90 - 5.20 m/uL [facility] WBC (Bld) [#/Vol] 7.70 10*3/uL [facility] Basophils (Bld) [#/Vol] 0.04 10*3/uL Normal <0.11 [facility] Comment on above: Order Comment: Speci men Type: BLOOD SPECIMENOrdering Facility: [facility] Address: [address] [place] [address] Performed By: #### 5 7021-8 ####[facility] LABCLIA [id number] [place] [address] Basophils/100 WBC (Bld) 0.5 % Normal [facility] Comment on above: Order Comment: Speci men Type: BLOOD SPECIMENOrdering Facility: [facility] Address: [address] [place] [address] Performed By: #### 5 7021-8 ####[facility] LABCLIA [id number] [place] [address] Differential cell count method Nom (Bld) Auto Normal [facility] Comment on above: Order Comment: Speci men Type: BLOOD SPECIMENOrdering Facility: [facility] Address: [address] [place] [address] Performed By: #### 5 7021-8 ####[facility] LABCLIA [id number] [place] [address] Eosinophils (Bld) [#/Vol] 0.55 10*3/uL High <0.46 [facility] Comment on above: Order Comment: Speci men Type: BLOOD SPECIMENOrdering Facility: [facility] Address: [address] [place] [address] Performed By: #### 5 7021-8 ####[facility] LABCLIA [id number] [place] [address] Eosinophils/100 WBC (Bld) 7.1 % Normal [facility] Comment on above: Order Comment: Speci men Type: BLOOD SPECIMENOrdering Facility: [facility] Address: [address] [place] [address] Performed By: #### 5 7021-8 ####[facility] LABCLIA [id number] [place] [address] Erythrocyte distribution width (RBC) [Ratio] 13.0 % Normal 11.5-15.0 [facility] Comment on above: Order Comment: Speci men Type: BLOOD SPECIMENOrdering Facility: [facility] Address: [address] [place] [address] Performed By: #### 5 7021-8 ####[facility] LABCLIA [id number] [place] [address] Hematocrit (Bld) [Volume fraction] 41.7 % Normal 36.0-46.0 [facility] Comment on above: Order Comment: Speci men Type: BLOOD SPECIMENOrdering Facility: [facility] Address: [address] [place] [address] Performed By: #### 5 7021-8 ####[facility] LABCLIA [id number] [place] [address] Hemoglobin (Bld) [Mass/Vol] 13.5 g/dL Normal 11.5-15.5 [facility] Comment on above: Order Comment: Speci men Type: BLOOD SPECIMENOrdering Facility: [facility] Address: [address] [place] [address] Performed By: #### 5 7021-8 ####[facility] LABCLIA [id number] [place] [address] Immature granulocytes (Bld) [#/Vol] 10*3/uL Normal <0.10 [facility] Comment on above: Order Comment: Speci men Type: BLOOD SPECIMENOrdering Facility: [facility] Address: [address] [place] [address] Performed By: #### 5 7021-8 ####[facility] LABCLIA [id number] [place] [address] Immature granulocytes/100 WBC (Bld) 0.3 % Normal [facility] Comment on above: Order Comment: Speci men Type: BLOOD SPECIMENOrdering Facility: [facility] Address: [address] [place] [address] Performed By: #### 5 7021-8 ####[facility] LABCLIA [id number] [place] [address] Lymphocytes (Bld) [#/Vol] 1.93 10*3/uL Normal 1.00-4.00 [facility] Comment on above: Order Comment: Speci men Type: BLOOD SPECIMENOrdering Facility: [facility] Address: [address] [place] [address] Performed By: #### 5 7021-8 ####[facility] LABCLIA [id number] [place] [address] Lymphocytes/100 WBC (Bld) 25.1 % Normal [facility] Comment on above: Order Comment: Speci men Type: BLOOD SPECIMENOrdering Facility: [facility] Address: [address] [place] [address] Performed By: #### 5 7021-8 ####[facility] LABCLIA [id number] [place] [address] MCH (RBC) [Entitic mass] 32.2 pg Normal 26.0-34.0 [facility] Comment on above: Order Comment: Speci men Type: BLOOD SPECIMENOrdering Facility: [facility] Address: [address] [place] [address] Performed By: #### 5 7021-8 ####[facility] LABCLIA [id number] [place] [address] MCHC (RBC) [Mass/Vol] 32.4 g/dL Normal 30.5-36.0 [facility] Comment on above: Order Comment: Speci men Type: BLOOD SPECIMENOrdering Facility: [facility] Address: [address] [place] [address] Performed By: #### 5 7021-8 ####[facility] LABCLIA [id number] [place] [address] MCV (RBC) [Entitic vol] 99.5 fL Normal 80.0-100.0 [facility] Comment on above: Order Comment: Speci men Type: BLOOD SPECIMENOrdering Facility: [facility] Address: [address] [place] [address] Performed By: #### 5 7021-8 ####[facility] LABCLIA [id number] [place] [address] Monocytes (Bld) [#/Vol] 0.65 10*3/uL Normal <0.87 [facility] Comment on above: Order Comment: Speci men Type: BLOOD SPECIMENOrdering Facility: [facility] Address: [address] [place] [address] Performed By: #### 5 7021-8 ####[facility] LABCLIA [id number] [place] [address] Monocytes/100 WBC (Bld) 8.4 % Normal [facility] Comment on above: Order Comment: Speci men Type: BLOOD SPECIMENOrdering Facility: [facility] Address: [address] [place] [address] Performed By: #### 5 7021-8 ####[facility] LABCLIA [id number] [place] [address] Neutrophils (Bld) [#/Vol] 4.51 10*3/uL Normal 1.45-7.50 [facility] Comment on above: Order Comment: Speci men Type: BLOOD SPECIMENOrdering Facility: [facility] Address: [address] [place] [address] Performed By: #### 5 7021-8 ####[facility] LABCLIA [id number] [place] [address] Neutrophils/100 WBC (Bld) 58.6 % Normal [facility] Comment on above: Order Comment: Speci men Type: BLOOD SPECIMENOrdering Facility: [facility] Address: [address] [place] [address] Performed By: #### 5 7021-8 ####[facility] LABIA [id number] [place] [address] Nucleated RBC (Bld) [#/Vol] 10*3/uL Normal <0.01 [facility] Comment on above: Order Comment: Speci men Type: BLOOD SPECIMENOrdering Facility: [facility] Address: [address] [place] [address] Performed By: #### 5 7021-8 ####[facility] LABCLIA [id number] [place] [address] Nucleated RBC/100 WBC (Bld) [Ratio] 0.0 /100 WBC Normal [facility] Comment on above: Order Comment: Speci men Type: BLOOD SPECIMENOrdering Facility: [facility] Address: [address] [place] [address] Performed By: #### 5 7021-8 ####[facility] LABCLIA [id number] [place] [address] Platelet mean volume (Bld) [Entitic vol] 9.6 fL Normal 9.0-12.7 [facility] Comment on above: Order Comment: Speci men Type: BLOOD SPECIMENOrdering Facility: [facility] Address: [address] [place] [address] Performed By: #### 5 7021-8 ####[facility] LABCLIA [id number] [place] [address] Platelets (Bld) [#/Vol] 291 10*3/uL Normal 150-400 [facility] Comment on above: Order Comment: Speci men Type: BLOOD SPECIMENOrdering Facility: [facility] Address: [address] [place] [address] Performed By: #### 5 7021-8 ####[facility] LABCLIA [id number] [place] [address] RBC (Bld) [#/Vol] 4.19 10*6/uL Normal 3.90-5.20 [facility] Comment on above: Order Comment: Speci men Type: BLOOD SPECIMENOrdering Facility: [facility] Address: [address] [place] [address] Performed By: #### 5 7021-8 ####[facility] LABCLIA [id number] [place] [address] WBC (Bld) [#/Vol] 7.70 10*3/uL Normal 3.70-11.00 [facility] Comment on above: Order Comment: Speci men Type: BLOOD SPECIMENOrdering Facility: [facility] Address: [address] [place] [address] Performed By: #### 5 7021-8 ####[facility] LABCLIA [id number] [place] [address] CNOVSPon 03-03-2024 CNOVSP Normal [facility] CNPNon 03-03-2024 CNPN Normal [facility] Comprehensive metabolic 2000 panelon 03-03-2024 Albumin [Mass/Vol] 4.4 g/dL Normal 3.9-4.9 [facility] Comment on above: Order Comment: Speci men Type: BLOOD SPECIMENOrdering Facility: [facility] Address: [address] [place] [address] Performed By: #### 2 4323-8 ####[facility] LABCLIA [id number] [place] [address] ALP [Catalytic activity/Vol] 113 U/L Normal 34-123 [facility] Comment on above: Order Comment: Speci men Type: BLOOD SPECIMENOrdering Facility: [facility] Address: [address] [place] [address] Performed By: #### 2 4323-8 ####[facility] LABCLIA [id number] [place] [address] ALT [Catalytic activity/Vol] 35 U/L Normal 7-38 [facility] Comment on above: Order Comment: Speci men Type: BLOOD SPECIMENOrdering Facility: [facility] Address: [address] [place] [address] Performed By: #### 2 4323-8 ####[facility] LABCLIA [id number] [place] [address] Anion gap [Moles/Vol] 12 mmol/L Normal 8-15 [facility] Comment on above: Order Comment: Speci men Type: BLOOD SPECIMENOrdering Facility: [facility] Address: [address] [place] [address] Performed By: #### 2 4323-8 ####[facility] LABCLIA [id number] [place] [address] AST [Catalytic activity/Vol] 24 U/L Normal 13-35 [facility] Comment on above: Order Comment: Speci men Type: BLOOD SPECIMENOrdering Facility: [facility] Address: [address] [place] [address] Performed By: #### 2 4323-8 ####[facility] LABCLIA [id number] [place] [address] Bilirubin [Mass/Vol] 0.3 mg/dL Normal 0.2-1.3 [facility] Comment on above: Order Comment: Speci men Type: BLOOD SPECIMENOrdering Facility: [facility] Address: [address] [place] [address] Performed By: #### 2 4323-8 ####[facility] LABCLIA [id number] [place] [address] Calcium [Mass/Vol] 10.2 mg/dL Normal 8.5-10.2 [facility] Comment on above: Order Comment: Speci men Type: BLOOD SPECIMENOrdering Facility: [facility] Address: [address] [place] [address] Performed By: #### 2 4323-8 ####[facility] LABCLIA [id number] [place] [address] Chloride [Moles/Vol] 107 mmol/L Normal 98-107 [facility] Comment on above: Order Comment: Speci men Type: BLOOD SPECIMENOrdering Facility: [facility] Address: [address] [place] [address] Performed By: #### 2 4323-8 ####[facility] LABCLIA [id number] [place] [address] CO2 [Moles/Vol] 27 mmol/L Normal 22-30 [facility] Comment on above: Order Comment: Speci men Type: BLOOD SPECIMENOrdering Facility: [facility] Address: [address] [place] [address] Performed By: #### 2 4323-8 ####[facility] LABCLIA [id number] [place] [address] Creatinine [Mass/Vol] 1.25 mg/dL High 0.58-0.96 [facility] Comment on above: Order Comment: Speci men Type: BLOOD SPECIMENOrdering Facility: [facility] Address: [address] [place] [address] Performed By: #### 2 4323-8 ####[facility] LABCLIA [id number] [place] [address] Creatinine and Glomerular filtration rate.predicted panel (S/P/Bld) 47 mL/min/1.73m??? Low >=60 [facility] Comment on above: Order Comment: Speci men Type: BLOOD SPECIMENOrdering Facility: [facility] Address: [address] [place] [address] Result Comment: Cristal mated Glomerular Filtration Rate [...] actual GFR. Performed By: #### 2 4323-8 ####[facility] LABCLIA [id number] [place] [address] Glucose [Mass/Vol] 113 mg/dL High 74-99 [facility] Comment on above: Order Comment: Speci men Type: BLOOD SPECIMENOrdering Facility: [facility] Address: [address] [place] [address] Result Comment: The [place] Diabetes Association (ADA) provides guidance for cutoff [...] Standards of Medical Care in Diabetes 2016, [place] [employer]. Diabetes Care. 2016.39(Suppl 1). Performed By: #### 2 4323-8 ####[facility] LABCLIA [id number] [place] [address] Potassium [Moles/Vol] 4.9 mmol/L Normal 3.7-5.1 [facility] Comment on above: Order Comment: Speci men Type: BLOOD SPECIMENOrdering Facility: [facility] Address: [address] [place] [address] Performed By: #### 2 4323-8 ####[facility] LABCLIA [id number] [place] [address] Protein [Mass/Vol] 6.9 g/dL Normal 6.3-8.0 [facility] Comment on above: Order Comment: Speci men Type: BLOOD SPECIMENOrdering Facility: [facility] Address: [address] [place] [address] Performed By: #### 2 4323-8 ####[facility] LABCLIA [id number] [place] [address] Sodium [Moles/Vol] 146 mmol/L High 136-144 [facility] Comment on above: Order Comment: Speci men Type: BLOOD SPECIMENOrdering Facility: [facility] Address: [address] [place] [address] Performed By: #### 2 4323-8 ####[facility] LABCLIA [id number] [place] [address] Urea nitrogen [Mass/Vol] 19 mg/dL Normal 7-21 [facility] Comment on above: Order Comment: Speci men Type: BLOOD SPECIMENOrdering Facility: [facility] Address: [place] [address] Performed By: #### 2 4323-8 ####[facility] LABCLIA [id number] [place] [address] CT CTA CHESTon 02-15-[address] CTA CHEST CLINICAL HISTORY: A 68-year-old female with the history of the multiple segmental pulmonary emboli and COPD. Complaining of shortness of breath. High probability of PE. The PE is suspected. TECHNIQUE: Multidetector spiral CT scan of chest is performed by using PE protocol . Patient received 100 cc of Omnipaque [address] pulmonary angiogram is performed. Multiplanar and 3-D reconstruction images are reformatted. COMPARISON: Comparison is made with the CT pulmonary angiogram of the 11/05/2023. FINDINGS: There is satisfactory opacification of the pulmonary arteries and their branches. There is no evidence of filling defects in the pulmonary arteries and their branches to suggest pulmonary embolization. The thoracic aorta is normal in caliber without evidence of dissection. Great vessels of the aortic arch are patent. The heart is normal in size. There is no evidence of pericardial effusion. Both lungs are free of pulmonary infiltrates or acute pulmonary pathology. There is no vascular congestion. Minimal atelectasis is seen in the left lower lung field. There is a large hiatal hernia. No mediastinal lymphadenopathy seen. Central tracheobronchial tree is unremarkable. Scan continued through the upper abdomen demonstrates no focal mass or acute pathology. Fatty infiltration of the liver. There is a severe scoliosis in the thoracolumbar spine with spinal fusion surgery by rods and and clips. IMPRESSION: 1. No evidence of pulmonary embolization on CT pulmonary angiogram . 2. No evidence of dissection or aneurysm of the thoracic aorta. 3. No evidence of pulmonary infiltrates or acute pulmonary pathology is seen. Minimal left lower lobe atelectasis. 4. Large hiatal hernia. All CT scans at this facility use dose modulation, iterative reconstruction, and/or weight based dosing when appropriate to reduce radiation dose to as low as reasonably achievable. Finalized by Joshua Son MD on 02/15/2024 8:48 PM Normal [facility] CNPNon 02-13-2024 CNPN Normal [facility] CNCNPATEDon 02-07-2024 CNCNPATED Normal [facility] CNOVon 02-07-2024 CNOV Normal [facility] CNPNon 02-06-2024 CNPN Normal [facility] BI MAMMOGRAM DIAGNOSTIC SULMA SYNTHESIS RIGHTon 01-24-2024 BI MAMMOGRAM DIAGNOSTIC TOMOSYNTHESIS RIGHT This is a summary report. The complete report is available in the patient's medical record. If you cannot access the medical record, please contact the sending organization for a detailed fax or copy. EXAMINATION: BI MAMMOGRAM DIAGNOSTIC TOMOSYNTHESIS RIGHT CLINICAL HISTORY:mamm COMPARISON: April 30, 2023. RESULT: Digital and 3D tomosynthesis mammography of the right breast was performed Density: Scattered fibroglandular density [2] No persistent distortion with associated mass within the right breast. Please see ultrasound report. IMPRESSION: BIRADS 2 - Benign. Follow-up: Routine Screening Mamm Board Certified Radiologists. Accredited by the ACR and FDA. MAMMOGRAPHY IS VERY IMPORTANT TO YOUR HEALTH. THE [employer] GUIDELINES RECOMMEND THAT WOMEN 40 YEARS OF AGE AND OLDER SHOULD HAVE A MAMMOGRAM EVERY YEAR. A REMINDER LETTER WILL BE SENT AT THE APPROPRIATE TIME. THIS FACILITY UTILIZES A REMINDER SYSTEM TO ENSURE ALL PATIENTS RECEIVE REMINDER NOTIFICATIONS AT THE APPROPRIATE TIME BASED ON THE RECOMMENDATIONS OF THIS EXAM. THIS INCLUDES REMINDERS FOR ROUTINE SCREENING MAMMOGRAMS, DIAGNOSTIC MAMMOGRAMS IN WHICH THE PATIENT IS ASKED TO RETURN FOR ADDITIONAL VIEWS, OR OTHER BREAST IMAGING INTERVENTIONS WHEN APPROPRIATE. THE PATIENT WILL BE PLACED IN THE APPROPRIATE REMINDER SYSTEM INCLUDING A REMINDER AT THE APPROPRIATE TIME FOR ANY PENDING ADDITIONAL VIEWS. TRANSCRIBED BY: ELECTRONICALLY SIGNED BY: Crow Tompkins MD Normal Not Available BI US BREAST LIMITED RIGHTon 01-24-2024 BI US BREAST LIMITED RIGHT This is a summary report. The complete report is available in the patient's medical record. If you cannot access the medical record, please contact the sending organization for a detailed fax or copy. FINDINGS: Sonographic evaluation of the right breast was performed, correlation made with the same day mammogram and prior mammogram and ultrasound of April 30, 2023. Benign cysts account for the mammogram findings, largest 9 o'clock 1.5 x 1.8 x 1.0 cm. No suspicious nodule. IMPRESSION: BIRADS 2 - Benign TRANSCRIBED BY: ELECTRONICALLY SIGNED BY: Crow Tompkins MD Normal Not Available CNPNon 01-22-2024 CNPN Normal [facility] BILIRUBIN, CONJUGATEDon 12-25 Bilirubin.conjugated [Mass/Vol] mg/dL [facility] mg/dL [facility] Bilirub Conj SerPl-mCncon Bilirubin.conjugated [Mass/Vol] mg/dL Normal <0.2 [facility] Comment on above: Order Comment: Speci men Type: BLOOD SPECIMENOrdering Facility: [facility] Address: [address] [place] [address] Performed By: #### 1 5152-2, 47200-4 ####[facility] LABCLIA [id number] [place] [address] Bilirubin.conjugated [Mass/V ol]on 01-21-2024 Interpretation and review of laboratory results Normal [facility] CBC W Auto Differential pane l (Bld)on 01-21-2024 Basophils (Bld) [#/Vol] 0.03 10*3/uL [place] Basophils/100 WBC (Bld) 0.5 % [facility] Differential cell count method Nom (Bld) Auto [facility] Eosinophils (Bld) [#/Vol] 0.13 10*3/uL [place] Eosinophils/100 WBC (Bld) 2.0 % [facility] Erythrocyte distribution width (RBC) [Ratio] 18.0 % High 11.5 - 15.0 % [facility] Hematocrit (Bld) [Volume fraction] 38.5 % 36.0 - 46.0 % [facility] Hemoglobin (Bld) [Mass/Vol] 12.5 g/dL 11.5 - 15.5 g/dL [facility] Immature granulocytes (Bld) [#/Vol] 0.03 10*3/uL [place] Immature granulocytes/100 WBC (Bld) 0.5 % [facility] Interpretation and review of laboratory results Abnormal [facility] Lymphocytes (Bld) [#/Vol] 1.59 10*3/uL [facility] Lymphocytes/100 WBC (Bld) 24.9 % [facility] MCH (RBC) [Entitic mass] 32.1 pg 26.0 - 34.0 pg [facility] MCHC (RBC) [Mass/Vol] 32.5 g/dL 30.5 - 36.0 g/dL [facility] MCV (RBC) [Entitic vol] 99.0 fL 80.0 - 100.0 fL [facility] Monocytes (Bld) [#/Vol] 0.52 10*3/uL [place] Monocytes/100 WBC (Bld) 8.2 % [facility] Neutrophils (Bld) [#/Vol] 4.08 10*3/uL [facility] Neutrophils/100 WBC (Bld) 63.9 % [facility] Nucleated RBC (Bld) [#/Vol] [facility] Nucleated RBC/100 WBC (Bld) [Ratio] 0.0 % /100 WBC [facility] Platelet mean volume (Bld) [Entitic vol] 9.0 fL 9.0 - 12.7 fL [facility] Platelets (Bld) [#/Vol] 449 10*3/uL High [facility] RBC (Bld) [#/Vol] 3.89 10*6/uL Low 3.90 - 5.20 m/uL [facility] WBC (Bld) [#/Vol] 6.38 10*3/uL [facility] Basophils (Bld) [#/Vol] 0.03 10*3/uL Normal <0.11 [facility] Comment on above: Order Comment: Speci men Type: BLOOD SPECIMENOrdering Facility: [facility] Address: [address] [place] [address] Performed By: #### 5 7021-8 ####[facility] LABCLIA [id number] [place] [address] Basophils/100 WBC (Bld) 0.5 % Normal [facility] Comment on above: Order Comment: Speci men Type: BLOOD SPECIMENOrdering Facility: [facility] Address: [address] [place] [address] Performed By: #### 5 7021-8 ####[facility] LABCLIA [id number] [place] [address] Differential cell count method Nom (Bld) Auto Normal [facility] Comment on above: Order Comment: Speci men Type: BLOOD SPECIMENOrdering Facility: [facility] Address: [address] [place] [address] Performed By: #### 5 7021-8 ####[facility] LABCLIA [id number] [place] [address] Eosinophils (Bld) [#/Vol] 0.13 10*3/uL Normal <0.46 [facility] Comment on above: Order Comment: Speci men Type: BLOOD SPECIMENOrdering Facility: [facility] Address: [address] [place] [address] Performed By: #### 5 7021-8 ####[facility] LABCLIA [id number] [place] [address] Eosinophils/100 WBC (Bld) 2.0 % Normal [facility] Comment on above: Order Comment: Speci men Type: BLOOD SPECIMENOrdering Facility: [facility] Address: [address] [place] [address] Performed By: #### 5 7021-8 ####[facility] LABCLIA [id number] [place] [address] Erythrocyte distribution width (RBC) [Ratio] 18.0 % High 11.5-15.0 [facility] Comment on above: Order Comment: Speci men Type: BLOOD SPECIMENOrdering Facility: [facility] Address: [address] [place] [address] Performed By: #### 5 7021-8 ####[facility] LABCLIA [id number] [place] [address] Hematocrit (Bld) [Volume fraction] 38.5 % Normal 36.0-46.0 [facility] Comment on above: Order Comment: Speci men Type: BLOOD SPECIMENOrdering Facility: [facility] Address: [address] [place] [address] Performed By: #### 5 7021-8 ####[facility] LABCLIA [id number] [place] [address] Hemoglobin (Bld) [Mass/Vol] 12.5 g/dL Normal 11.5-15.5 [facility] Comment on above: Order Comment: Speci men Type: BLOOD SPECIMENOrdering Facility: [facility] Address: [address] [place] [address] Performed By: #### 5 7021-8 ####[facility] LABCLIA [id number] [place] [address] Immature granulocytes (Bld) [#/Vol] 0.03 10*3/uL Normal <0.10 [facility] Comment on above: Order Comment: Speci men Type: BLOOD SPECIMENOrdering Facility: [facility] Address: [address] [place] [address] Performed By: #### 5 7021-8 ####[facility] LABCLIA [id number] [place] [address] Immature granulocytes/100 WBC (Bld) 0.5 % Normal [facility] Comment on above: Order Comment: Speci men Type: BLOOD SPECIMENOrdering Facility: [facility] Address: [address] [place] [address] Performed By: #### 5 7021-8 ####[facility] LABCLIA [id number] [place] [address] Lymphocytes (Bld) [#/Vol] 1.59 10*3/uL Normal 1.00-4.00 [facility] Comment on above: Order Comment: Speci men Type: BLOOD SPECIMENOrdering Facility: [facility] Address: [address] [place] [address] Performed By: #### 5 7021-8 ####[facility] LABCLIA [id number] [place] [address] Lymphocytes/100 WBC (Bld) 24.9 % Normal [facility] Comment on above: Order Comment: Speci men Type: BLOOD SPECIMENOrdering Facility: [facility] Address: [address] [place] [address] Performed By: #### 5 7021-8 ####[facility] LABCLIA [id number] [place] [address] MCH (RBC) [Entitic mass] 32.1 pg Normal 26.0-34.0 [facility] Comment on above: Order Comment: Speci men Type: BLOOD SPECIMENOrdering Facility: [facility] Address: [address] [place] [address] Performed By: #### 5 7021-8 ####[facility] LABIA [id number] [place] [address] MCHC (RBC) [Mass/Vol] 32.5 g/dL Normal 30.5-36.0 [facility] Comment on above: Order Comment: Speci men Type: BLOOD SPECIMENOrdering Facility: [facility] Address: [address] [place] [address] Performed By: #### 5 7021-8 ####[facility] LABIA [id number] [place] [address] MCV (RBC) [Entitic vol] 99.0 fL Normal 80.0-100.0 [facility] Comment on above: Order Comment: Speci men Type: BLOOD SPECIMENOrdering Facility: [facility] Address: [address] [place] [address] Performed By: #### 5 7021-8 ####[facility] LABIA [id number] [place] [address] Monocytes (Bld) [#/Vol] 0.52 10*3/uL Normal <0.87 [facility] Comment on above: Order Comment: Speci men Type: BLOOD SPECIMENOrdering Facility: [facility] Address: [address] [place] [address] Performed By: #### 5 7021-8 ####[facility] LABCLIA [id number] [place] [address] Monocytes/100 WBC (Bld) 8.2 % Normal [facility] Comment on above: Order Comment: Speci men Type: BLOOD SPECIMENOrdering Facility: [facility] Address: [address] [place] [address] Performed By: #### 5 7021-8 ####[facility] LABCLIA [id number] [place] [address] Neutrophils (Bld) [#/Vol] 4.08 10*3/uL Normal 1.45-7.50 [facility] Comment on above: Order Comment: Speci men Type: BLOOD SPECIMENOrdering Facility: [facility] Address: [address] [place] [address] Performed By: #### 5 7021-8 ####[facility] LABCLIA [id number] [place] [address] Neutrophils/100 WBC (Bld) 63.9 % Normal [facility] Comment on above: Order Comment: Speci men Type: BLOOD SPECIMENOrdering Facility: [facility] Address: [address] [place] [address] Performed By: #### 5 7021-8 ####[facility] LABCLIA [id number] [place] [address] Nucleated RBC (Bld) [#/Vol] 10*3/uL Normal <0.01 [facility] Comment on above: Order Comment: Speci men Type: BLOOD SPECIMENOrdering Facility: [facility] Address: [address] [place] [address] Performed By: #### 5 7021-8 ####[facility] LABIA [id number] [place] [address] Nucleated RBC/100 WBC (Bld) [Ratio] 0.0 /100 WBC Normal [facility] Comment on above: Order Comment: Speci men Type: BLOOD SPECIMENOrdering Facility: [facility] Address: [address] [place] [address] Performed By: #### 5 7021-8 ####[facility] LABCLIA [id number] [place] [address] Platelet mean volume (Bld) [Entitic vol] 9.0 fL Normal 9.0-12.7 [facility] Comment on above: Order Comment: Speci men Type: BLOOD SPECIMENOrdering Facility: [facility] Address: [address] [place] [address] Performed By: #### 5 7021-8 ####[facility] LABCLIA [id number] [place] [address] Platelets (Bld) [#/Vol] 449 10*3/uL High 150-400 [facility] Comment on above: Order Comment: Speci men Type: BLOOD SPECIMENOrdering Facility: [facility] Address: [address] [place] [address] Performed By: #### 5 7021-8 ####[facility] LABCLIA [id number] [place] [address] RBC (Bld) [#/Vol] 3.89 10*6/uL Low 3.90-5.20 [facility] Comment on above: Order Comment: Speci men Type: BLOOD SPECIMENOrdering Facility: [facility] Address: [address] [place] [address] Performed By: #### 5 7021-8 ####[facility] LABCLIA [id number] [place] [address] WBC (Bld) [#/Vol] 6.38 10*3/uL Normal 3.70-11.00 [facility] Comment on above: Order Comment: Speci men Type: BLOOD SPECIMENOrdering Facility: [facility] Address: [address] [place] [address] Performed By: #### 5 7021-8 ####[facility] LABCLIA [id number] [place] [address] CNOVSPon 01-21-2024 CNOVSP Normal [facility] CNPNon 01-21-2024 CNPN Normal [facility] Comprehensive metabolic 2000 panelOrdered By: Faviola Moreno on 01-21-2024 Albumin [Mass/Vol] 4.3 g/dL 3.9 - 4.9 g/dL [facility] ALP [Catalytic activity/Vol] 97 U/L 34 - 123 U/L [facility] ALT [Catalytic activity/Vol] 83 U/L High 7 - 38 U/L [facility] Anion gap [Moles/Vol] 11 mmol/L 9 - 18 mmol/L [facility] AST [Catalytic activity/Vol] 47 U/L High 13 - 35 U/L [facility] Bilirubin [Mass/Vol] 0.4 mg/dL 0.2 - 1 .3 mg/dL [facility] Calcium [Mass/Vol] 10.2 mg/dL 8.5 - 10. 2 mg/dL [facility] Chloride [Moles/Vol] 104 mmol/L 97 - 10 5 mmol/L [facility] [facility] CO2 [Moles/Vol] 25 mmol/L 22 - 30 mmol/L [facility] Creatinine [Mass/Vol] 1.13 mg/dL High 0.58 - 0.96 mg/dL [facility] GFR/1.73 sq M.predicted among non-blacks MDRD (S/P/Bld) [Vol rate/Area] 53 mL/min/{1.73_m2} Low - PINF [facility] Comment on above: Estimated Glomerular Filtration Rate (eGFR) is calculated using the 2020 CKD-EPI creatinine equation. This equation utilizes serum creatinine, sex, and age as parameters. The creatinine assay has traceable calibration to isotope dilution-mass spectrometry. Refer to KDIGO guidelines for clinical interpretation. In patients with unstable renal function, e.g. those with acute kidney injury, the eGFR may not accurately reflect actual GFR. Glucose [Mass/Vol] 154 mg/dL High 74 - 99 mg/dL [facility] Comment on above: The [place] Diabete s Association (ADA) provides guidance for cutoff values [...] Standards of Medical Care in Diabetes 2016, [place] Diabetes Association. Diabetes Care. 2016.39(Suppl 1). Interpretation and review of laboratory results Abnormal [facility] Potassium [Moles/Vol] 4.2 mmol/L 3.7 - 5.1 mmol/L [facility] Protein [Mass/Vol] 7.1 g/dL 6.3 - 8.0 g/dL [facility] Sodium [Moles/Vol] 140 mmol/L 136 - 144 mmol/L [facility] Urea nitrogen [Mass/Vol] 17 mg/dL 7 - 21 mg/dL [facility] Comprehensive metabolic 2000 panelon 01-21-2024 Albumin [Mass/Vol] 4.3 g/dL Normal 3.9-4.9 [facility] Comment on above: Order Comment: Speci men Type: BLOOD SPECIMENOrdering Facility: [facility] Address: [address] [place] [address] Performed By: #### 1 5152-2, 34032-6 ####[facility] LABCLIA [id number] [place] [address] ALP [Catalytic activity/Vol] 97 U/L Normal 34-123 [facility] Comment on above: Order Comment: Speci men Type: BLOOD SPECIMENOrdering Facility: [facility] Address: [address] [place] [address] Performed By: #### 1 5152-2, 60659-1 ####[facility] LABCLIA [id number] [place] [address] ALT [Catalytic activity/Vol] 83 U/L High 7-38 [facility] Comment on above: Order Comment: Speci men Type: BLOOD SPECIMENOrdering Facility: [facility] Address: [address] [place] [address] Performed By: #### 1 5152-2, ####[facility] LABCLIA [id number] [place] [address] Anion gap [Moles/Vol] 11 mmol/L Normal 9-18 [facility] Comment on above: Order Comment: Speci men Type: BLOOD SPECIMENOrdering Facility: [facility] Address: [address] [place] [address] Performed By: #### 1 5152-2, ####[facility] LABCLIA [id number] [place] [address] AST [Catalytic activity/Vol] 47 U/L High 13-35 [facility] Comment on above: Order Comment: Speci men Type: BLOOD SPECIMENOrdering Facility: [facility] Address: [address] [place] [address] Performed By: #### 1 5152-2, ####[facility] LABCLIA [id number] [place] [address] Bilirubin [Mass/Vol] 0.4 mg/dL Normal 0.2-1.3 [facility] Comment on above: Order Comment: Speci men Type: BLOOD SPECIMENOrdering Facility: [facility] Address: [address] [place] [address] Performed By: #### 1 5152-2, ####[facility] LABCLIA [id number] [place] [address] Calcium [Mass/Vol] 10.2 mg/dL Normal 8.5-10.2 [facility] Comment on above: Order Comment: Speci men Type: BLOOD SPECIMENOrdering Facility: [facility] Address: [address] [place] [address] Performed By: #### 1 5152-2, ####[facility] LABCLIA [id number] [place] [address] Chloride [Moles/Vol] 104 mmol/L Normal 97-105 [facility] Comment on above: Order Comment: Speci men Type: BLOOD SPECIMENOrdering Facility: [facility] Address: [address] [place] [address] Performed By: #### 1 5152-2, ####[facility] LABCLIA [id number] [place] [address] CO2 [Moles/Vol] 25 mmol/L Normal 22-30 [facility] Comment on above: Order Comment: Speci men Type: BLOOD SPECIMENOrdering Facility: [facility] Address: [address] [place] [address] Performed By: #### 1 5152-2, ####[facility] LABCLIA [id number] [place] [address] Creatinine [Mass/Vol] 1.13 mg/dL High 0.58-0.96 [facility] Comment on above: Order Comment: Speci men Type: BLOOD SPECIMENOrdering Facility: [facility] Address: [address] [place] [address] Performed By: #### 1 5152-2, 30390-4 ####[facility] LABCLIA [id number] [place] [address] Creatinine and Glomerular filtration rate.predicted panel (S/P/Bld) 53 mL/min/1.73m??? Low >=60 [facility] Comment on above: Order Comment: Speci men Type: BLOOD SPECIMENOrdering Facility: [facility] Address: [address] [place] [address] Result Comment: Cristal mated Glomerular Filtration Rate [...] accurately reflect actual GFR. Performed By: #### 1 5152-2, 97309-9 ####[facility] LABCLIA [id number] [place] [address] Glucose [Mass/Vol] 154 mg/dL High 74-99 [facility] Comment on above: Order Comment: Speci men Type: BLOOD SPECIMENOrdering Facility: [facility] Address: [address] [place], [place] [id number] Result Comment: The [place] Diabetes Association (ADA) provides guidance for cutoff [...] Standards of Medical Care in Diabetes 2016, [place] Diabetes Association. Diabetes Care. 2016.39(Suppl 1). Performed By: #### 1 5152-2, 81975-1 ####[facility] LABCLIA [id number] [place] [address] Potassium [Moles/Vol] 4.2 mmol/L Normal 3.7-5.1 [facility] Comment on above: Order Comment: Speci men Type: BLOOD SPECIMENOrdering Facility: [facility] Address: [address] [place] [address] Performed By: #### 1 5152-2, 04871-5 ####[facility] LABCLIA [id number] [place] [address] Protein [Mass/Vol] 7.1 g/dL Normal 6.3-8.0 [facility] Comment on above: Order Comment: Speci men Type: BLOOD SPECIMENOrdering Facility: [facility] Address: [address] [place], [place] [address] Performed By: #### 1 5152-2, 03415-9 ####[facility] LABCLIA [id number] [place] [address] Sodium [Moles/Vol] 140 mmol/L Normal 136-144 [facility] Comment on above: Order Comment: Speci men Type: BLOOD SPECIMENOrdering Facility: [facility] Address: [address] [place] [address] Performed By: #### 1 5152-2, 32879-7 ####[facility] LABCLIA [id number] [place] [address] Urea nitrogen [Mass/Vol] 17 mg/dL Normal 7-21 [facility] Comment on above: Order Comment: Speci men Type: BLOOD SPECIMENOrdering Facility: [facility] Address: [address] [place] [address] Performed By: #### 1 5152-2, 74572-7 ####[facility] LABCLIA [id number] [place] [address] Ferritin SerPl-[facility] Serviceson 2023 Ferritin [Mass/Vol] 292.0 ng/mL High 14.7-205.1 [facility] Comment on above: Order Comment: Speci men Type: BLOOD SPECIMENOrdering Facility: [facility] Address: [address] [place] [address] Performed By: #### 5 0190-8, 2276-4 ####[facility] LABCLIA [id number] [place] [address] [place] HBV core Ab Ser Qlon 024 HBV core Ab Ql (S) Negative Normal Negative [facility] Comment on above: Order Comment: Speci men Type: BLOOD SPECIMENOrdering Facility: [facility] Address: [address] [place] [address] Result Comment: No e vidence of current or past infection with Hepatitis B virus. Should recent infection be suspected, repeat testing may be considered 3-4 weeks after this draw. Performed By: #### 2 2322-2, 5195-3, 77550-1 ####[facility] LABCLIA [id number] [place] [address] [place] HBV surface Ab Ql (S)on 12-25 HBV surface Ab Qn (S) <8.00 Normal [facility] Comment on above: Order Comment: Speci men Type: BLOOD SPECIMENOrdering Facility: [facility] Address: [address] [place] [address] Result Comment: <8 m IU/mL: No serological evidence of immunity to Hepatitis B Virus.>/= 8 to <12 mIU/mL: No serological evidence of immunity to Hepatitis B Virus.>/= 12 mIU/mL: Consistent with serological evidence of immunity to Hepatitis B Virus. Performed By: #### 2 2322-2, 5195-3, 87400-9 ####[facility] LABCLIA [id number] [place] [address] [place] HBV surface Ab Ser Qlon 12-25 HBV surface Ab Ql (S) Negative Normal [facility] Comment on above: Order Comment: Speci men Type: BLOOD SPECIMENOrdering Facility: [facility] Address: [address] [place] [address] Result Comment: No s erological evidence of immunity to Hepatitis B Virus. Performed By: #### 2 2322-2, 5195-3, 17615-5 ####[facility] LABCLIA [id number] [place] [address] [place] HBV surface Ag Ser Qlon 12-25 HBV surface Ag Ql (S) Negative Normal Negative [facility] Comment on above: Order Comment: Speci men Type: BLOOD SPECIMENOrdering Facility: [facility] Address: [address] [place] [address] Performed By: #### 2 2322-2, 5195-3, 16553-4 ####[facility] LABCLIA [id number] [place] [address] [place] HCV Ab Ser Qlon 05-28-2024 HCV Ab Ql (S) Negative Normal Negative [facility] Comment on above: Order Comment: Speci men Type: BLOOD SPECIMENOrdering Facility: [facility] Address: [address] [place] [address] Result Comment: The result suggests no evidence of active infection with Hepatitis C virus. Should recent infection be suspected, repeat testing may be considered 4-6 weeks after this draw. Performed By: #### 1 6128-1 ####[facility] LABCLIA [id number] [place] [address] [place] Iron and Iron binding capaci ty panelon 01-21-2024 Iron [Mass/Vol] 97 ug/dL Normal 41-186 [facility] Comment on above: Order Comment: Speci men Type: BLOOD SPECIMENOrdering Facility: [facility] Address: [address] [place] [address] Performed By: #### 5 0190-8, 6-4 ####[facility] LABCLIA [id number] [place] [address] [place] Iron binding capacity [Mass/Vol] 267 ug/dL Normal 232-386 [facility] Comment on above: Order Comment: Speci men Type: BLOOD SPECIMENOrdering Facility: [facility] Address: [address] [place] [address] Performed By: #### 5 0190-8, 6-4 ####[facility] LABCLIA [id number] [place] [address] [place] Iron/TIBC [Molar ratio] 36.3 % Normal 15.0-57.0 [facility] Comment on above: Order Comment: Speci men Type: BLOOD SPECIMENOrdering Facility: [facility] Address: [address] [place] [address] Performed By: #### 5 0190-8, 6-4 ####[facility] LABCLIA [id number] [place] [address] [place] COMPREHENSIVE METABOLIC PANE Lito 01-17-2024 Albumin [Mass/Vol] 4.0 g/dL Normal 3.2-5.3 [facility] Comment on above: Performed By: #### C MP #### [facility] ([id number]) [address], [address] [place] [address] ALP [Catalytic activity/Vol] 82 U/L Normal 39-130 [facility] Comment on above: Performed By: #### C MP #### [facility] ([id number]) [address], [address] [place] [address] ALT [Catalytic activity/Vol] 107 U/L High 0-31 [facility] Comment on above: Performed By: #### C MP #### [facility] ([id number]) [address], [address] [place] [address] Anion gap [Moles/Vol] 12 mmol/L Normal 5-15 [facility] Comment on above: Performed By: #### C MP #### [facility] ([id number]) [address], [address] [place] [address] AST [Catalytic activity/Vol] 46 U/L High 0-41 [facility] Comment on above: Performed By: #### C MP #### [facility] ([id number]) [address], [address] [place] [address] Bilirubin [Mass/Vol] 0.3 mg/dL Normal 0.3-1.2 [facility] Comment on above: Performed By: #### C MP #### [facility] ([id number]) [address], [address] [place] [address] Calcium [Mass/Vol] 9.3 mg/dL Normal 8.5-10.5 [facility] Comment on above: Performed By: #### C MP #### [facility] ([id number]) [address], [address] [place] [address] Chloride [Moles/Vol] 104 mmol/L Normal 98-109 [facility] Comment on above: Performed By: #### C MP #### [facility] ([id number]) [address] [place] [address] CO2 [Moles/Vol] 25 mmol/L Normal 22-32 [facility] Comment on above: Performed By: #### C MP #### [facility] ([id number]) [address] [place] [address] Creatinine [Mass/Vol] 1.08 mg/dL High 0.40-1.00 [facility] Comment on above: Result Comment: METH OD TRACEABLE TO IDMS STANDARD Performed By: #### C MP #### [facility] ([id number]) [address] [place] [address] GFR/1.73 sq M.predicted among non-blacks MDRD (S/P/Bld) [Vol rate/Area] 56 mL/min/{1.73_m2} Low >59 [facility] Comment on above: Result Comment: Reported eGFR is based on the CKD-EPI 2020 equation that does not use a race coefficient. Performed By: #### C MP #### [facility] ([id number]) [address], [address] [place] [address] Glucose [Mass/Vol] 134 mg/dL High 65-99 [facility] Comment on above: Performed By: #### C MP #### [facility] ([id number]) [address] [place] [address] Potassium [Moles/Vol] 4.0 mmol/L Normal 3.5-5.0 [facility] Comment on above: Performed By: #### C MP #### [facility] ([id number]) [address] [place] [address] Protein [Mass/Vol] 6.6 g/dL Normal 6.0-8.0 [facility] Comment on above: Performed By: #### C MP #### [facility] ([id number]) [address], [address] [place] [address] Sodium [Moles/Vol] 141 mmol/L Normal 134-146 [facility] Comment on above: Performed By: #### C MP #### [facility] ([id number]) [address] [place] [address] Urea nitrogen [Mass/Vol] 14 mg/dL Normal 5-27 [facility] Comment on above: Performed By: #### C MP #### [facility] ([id number]) [address], [address] [place] [address] CNPNon 01-15-2024 CNPN Normal [facility] CBC W Auto Differential pane l (Bld)on 01-14-2024 Basophils (Bld) [#/Vol] 0.04 10*3/uL [place] Basophils/100 WBC (Bld) 0.9 % [facility] Differential cell count method Nom (Bld) Auto [facility] Eosinophils (Bld) [#/Vol] 0.13 10*3/uL [place] Eosinophils/100 WBC (Bld) 3.0 % [facility] Erythrocyte distribution width (RBC) [Ratio] 17.6 % High 11.5 - 15.0 % [facility] Hematocrit (Bld) [Volume fraction] 35.4 % Low 36.0 - 46.0 % [facility] Hemoglobin (Bld) [Mass/Vol] 11.4 g/dL Low 11.5 - 15.5 g/dL [facility] Immature granulocytes (Bld) [#/Vol] [facility] Immature granulocytes/100 WBC (Bld) 0.5 % [facility] Interpretation and review of laboratory results Abnormal [facility] Lymphocytes (Bld) [#/Vol] 1.27 10*3/uL [facility] Lymphocytes/100 WBC (Bld) 28.9 % [facility] MCH (RBC) [Entitic mass] 31.6 pg 26.0 - 34.0 pg [facility] MCHC (RBC) [Mass/Vol] 32.2 g/dL 30.5 - 36.0 g/dL [facility] MCV (RBC) [Entitic vol] 98.1 fL 80.0 - 100.0 fL [facility] Monocytes (Bld) [#/Vol] 0.35 10*3/uL [facility] Monocytes/100 WBC (Bld) 8.0 % [facility] Neutrophils (Bld) [#/Vol] 2.58 10*3/uL [facility] Neutrophils/100 WBC (Bld) 58.7 % [facility] Nucleated RBC (Bld) [#/Vol] NINF [facility] Nucleated RBC/100 WBC (Bld) [Ratio] 0.0 % /100 WBC [facility] Platelet mean volume (Bld) [Entitic vol] 9.4 fL 9.0 - 12.7 fL [facility] Platelets (Bld) [#/Vol] 397 10*3/uL [facility] RBC (Bld) [#/Vol] 3.61 10*6/uL Low 3.90 - 5.20 m/uL [facility] WBC (Bld) [#/Vol] 4.39 10*3/uL [facility] Basophils (Bld) [#/Vol] 0.04 10*3/uL Normal <0.11 [facility] Comment on above: Order Comment: Speci men Type: BLOOD SPECIMENOrdering Facility: [facility] Address: [address] [place] [address] Performed By: #### 5 7021-8 ####[facility] LABCLIA [id number] [place] [address] Basophils/100 WBC (Bld) 0.9 % Normal [facility] Comment on above: Order Comment: Speci men Type: BLOOD SPECIMENOrdering Facility: [facility] Address: [address] [place] [address] Performed By: #### 5 7021-8 ####[facility] LABCLIA [id number] [place] [address] Differential cell count method Nom (Bld) Auto Normal [facility] Comment on above: Order Comment: Speci men Type: BLOOD SPECIMENOrdering Facility: [facility] Address: [address] [place] [address] Performed By: #### 5 7021-8 ####[facility] LABCLIA [id number] [place] [address] Eosinophils (Bld) [#/Vol] 0.13 10*3/uL Normal <0.46 [facility] Comment on above: Order Comment: Speci men Type: BLOOD SPECIMENOrdering Facility: [facility] Address: [address] [place] [address] Performed By: #### 5 7021-8 ####[facility] LABCLIA [id number] [place] [address] Eosinophils/100 WBC (Bld) 3.0 % Normal [facility] Comment on above: Order Comment: Speci men Type: BLOOD SPECIMENOrdering Facility: [facility] Address: [address] [place] [address] Performed By: #### 5 7021-8 ####[facility] LABCLIA [id number] [place] [address] Erythrocyte distribution width (RBC) [Ratio] 17.6 % High 11.5-15.0 [facility] Comment on above: Order Comment: Speci men Type: BLOOD SPECIMENOrdering Facility: [facility] Address: [address] [place] [address] Performed By: #### 5 7021-8 ####[facility] LABCLIA [id number] [place] [address] Hematocrit (Bld) [Volume fraction] 35.4 % Low 36.0-46.0 [facility] Comment on above: Order Comment: Speci men Type: BLOOD SPECIMENOrdering Facility: [facility] Address: [address] [place] [address] Performed By: #### 5 7021-8 ####[facility] LABCLIA [id number] [place] [address] Hemoglobin (Bld) [Mass/Vol] 11.4 g/dL Low 11.5-15.5 [facility] Comment on above: Order Comment: Speci men Type: BLOOD SPECIMENOrdering Facility: [facility] Address: [address] [place] [address] Performed By: #### 5 7021-8 ####[facility] LABCLIA [id number] [place] [address] Immature granulocytes (Bld) [#/Vol] 10*3/uL Normal <0.10 [facility] Comment on above: Order Comment: Speci men Type: BLOOD SPECIMENOrdering Facility: [facility] Address: [address] [place] [address] Performed By: #### 5 7021-8 ####[facility] LABCLIA [id number] [place] [address] Immature granulocytes/100 WBC (Bld) 0.5 % Normal [facility] Comment on above: Order Comment: Speci men Type: BLOOD SPECIMENOrdering Facility: [facility] Address: [address] [place] [address] Performed By: #### 5 7021-8 ####[facility] LABCLIA [id number] [place] [address] Lymphocytes (Bld) [#/Vol] 1.27 10*3/uL Normal 1.00-4.00 [facility] Comment on above: Order Comment: Speci men Type: BLOOD SPECIMENOrdering Facility: [facility] Address: [address] [place] [address] Performed By: #### 5 7021-8 ####[facility] LABCLIA [id number] [place] [address] Lymphocytes/100 WBC (Bld) 28.9 % Normal [facility] Comment on above: Order Comment: Speci men Type: BLOOD SPECIMENOrdering Facility: [facility] Address: [address] [place] [address] Performed By: #### 5 7021-8 ####[facility] LABCLIA [id number] [place] [address] MCH (RBC) [Entitic mass] 31.6 pg Normal 26.0-34.0 [facility] Comment on above: Order Comment: Speci men Type: BLOOD SPECIMENOrdering Facility: [facility] Address: [address] [place] [address] Performed By: #### 5 7021-8 ####[facility] LABCLIA [id number] [place] [address] MCHC (RBC) [Mass/Vol] 32.2 g/dL Normal 30.5-36.0 [facility] Comment on above: Order Comment: Speci men Type: BLOOD SPECIMENOrdering Facility: [facility] Address: [address] [place] [address] Performed By: #### 5 7021-8 ####[facility] LABCLIA [id number] [place] [address] MCV (RBC) [Entitic vol] 98.1 fL Normal 80.0-100.0 [facility] Comment on above: Order Comment: Speci men Type: BLOOD SPECIMENOrdering Facility: [facility] Address: [address] [place] [address] Performed By: #### 5 7021-8 ####[facility] LABCLIA [id number] [place] [address] Monocytes (Bld) [#/Vol] 0.35 10*3/uL Normal <0.87 [facility] Comment on above: Order Comment: Speci men Type: BLOOD SPECIMENOrdering Facility: [facility] Address: [address] [place] [address] Performed By: #### 5 7021-8 ####[facility] LABCLIA [id number] [place] [address] Monocytes/100 WBC (Bld) 8.0 % Normal [facility] Comment on above: Order Comment: Speci men Type: BLOOD SPECIMENOrdering Facility: [facility] Address: [address] [place] [address] Performed By: #### 5 7021-8 ####[facility] LABCLIA [id number] [place] [address] Neutrophils (Bld) [#/Vol] 2.58 10*3/uL Normal 1.45-7.50 [facility] Comment on above: Order Comment: Speci men Type: BLOOD SPECIMENOrdering Facility: [facility] Address: [address] [place] [address] Performed By: #### 5 7021-8 ####[facility] LABCLIA [id number] [place] [address] Neutrophils/100 WBC (Bld) 58.7 % Normal [facility] Comment on above: Order Comment: Speci men Type: BLOOD SPECIMENOrdering Facility: [facility] Address: [address] [place] [address] Performed By: #### 5 7021-8 ####[facility] LABCLIA [id number] [place] [address] Nucleated RBC (Bld) [#/Vol] 10*3/uL Normal <0.01 [facility] Comment on above: Order Comment: Speci men Type: BLOOD SPECIMENOrdering Facility: [facility] Address: [address] [place] [address] Performed By: #### 5 7021-8 ####[facility] LABCLIA [id number] [place] [address] Nucleated RBC/100 WBC (Bld) [Ratio] 0.0 /100 WBC Normal [facility] Comment on above: Order Comment: Speci men Type: BLOOD SPECIMENOrdering Facility: [facility] Address: [address] [place] [address] Performed By: #### 5 7021-8 ####[facility] LABCLIA [id number] [place] [address] Platelet mean volume (Bld) [Entitic vol] 9.4 fL Normal 9.0-12.7 [facility] Comment on above: Order Comment: Speci men Type: BLOOD SPECIMENOrdering Facility: [facility] Address: [address] [place] [address] Performed By: #### 5 7021-8 ####[facility] LABIA [id number] [place] [address] Platelets (Bld) [#/Vol] 397 10*3/uL Normal 150-400 [facility] Comment on above: Order Comment: Speci men Type: BLOOD SPECIMENOrdering Facility: [facility] Address: [address] [place] [address] Performed By: #### 5 7021-8 ####[facility] LABIA [id number] [place] [address] RBC (Bld) [#/Vol] 3.61 10*6/uL Low 3.90-5.20 [facility] Comment on above: Order Comment: Speci men Type: BLOOD SPECIMENOrdering Facility: [facility] Address: [address] [place] [address] Performed By: #### 5 7021-8 ####[facility] LABIA [id number] [place] [address] WBC (Bld) [#/Vol] 4.39 10*3/uL Normal 3.70-11.00 [facility] Comment on above: Order Comment: Speci men Type: BLOOD SPECIMENOrdering Facility: [facility] Address: [address] [place] [address] Performed By: #### 5 7021-8 ####[facility] LABIA [id number] [place] [address] CNOVSPon 01-14-2024 CNOVSP Normal [facility] metabolic 2000 panelOrdered By: Lebron Pederson on 01-14-2024 Albumin [Mass/Vol] 3.9 g/dL 3.9 - 4.9 g/dL [facility] ALP [Catalytic activity/Vol] 91 U/L 34 - 123 U/L [facility] ALT [Catalytic activity/Vol] 139 U/L High 7 - 38 U/L [facility] Anion gap [Moles/Vol] 11 mmol/L 9 - 18 mmol/L [facility] AST [Catalytic activity/Vol] 118 U/L High 13 - 35 U/L [facility] Bilirubin [Mass/Vol] 0.2 mg/dL 0.2 - 1 .3 mg/dL [facility] Calcium [Mass/Vol] 9.6 mg/dL 8.5 - 10. 2 mg/dL [facility] Chloride [Moles/Vol] 103 mmol/L 97 - 10 5 mmol/L [facility] CO2 [Moles/Vol] 24 mmol/L 22 - 30 mmol/L [facility] Creatinine [Mass/Vol] 1.15 mg/dL High 0.58 - 0.96 mg/dL [facility] GFR/1.73 sq M.predicted among non-blacks MDRD (S/P/Bld) [Vol rate/Area] 52 mL/min/{1.73_m2} Low - PINF [facility] Comment on above: Estimated Glomerular Filtration Rate (eGFR) is calculated using the 2020 CKD-EPI creatinine equation. This equation utilizes serum creatinine, sex, and age as parameters. The creatinine assay has traceable calibration to isotope dilution-mass spectrometry. Refer to KDIGO guidelines for clinical interpretation. In patients with unstable renal function, e.g. those with acute kidney injury, the eGFR may not accurately reflect actual GFR. Glucose [Mass/Vol] 169 mg/dL High 74 - 99 mg/dL [facility] Comment on above: The [place] Diabete s Association (ADA) provides guidance for cutoff values [...] Standards of Medical Care in Diabetes 2016, [place] Diabetes Association. Diabetes Care. 2016.39(Suppl 1). Interpretation and review of laboratory results Abnormal [facility] Potassium [Moles/Vol] 4.3 mmol/L 3.7 - 5.1 mmol/L [facility] Protein [Mass/Vol] 6.4 g/dL 6.3 - 8.0 g/dL [facility] Sodium [Moles/Vol] 138 mmol/L 136 - 144 mmol/L [facility] Urea nitrogen [Mass/Vol] 16 mg/dL 7 - 21 mg/dL [facility] Comprehensive metabolic 2000 panelon 01-14-2024 Albumin [Mass/Vol] 3.9 g/dL Normal 3.9-4.9 [facility] Comment on above: Order Comment: Speci men Type: BLOOD SPECIMENOrdering Facility: [facility] Address: [address] [place] [address] Performed By: #### 2 4323-8 ####[facility] LABCLIA [id number] [place] [address] ALP [Catalytic activity/Vol] 91 U/L Normal 34-123 [facility] Comment on above: Order Comment: Speci men Type: BLOOD SPECIMENOrdering Facility: [facility] Address: [address] [place] [address] Performed By: #### 2 4323-8 ####[facility] LABCLIA [id number] [place] [address] ALT [Catalytic activity/Vol] 139 U/L High 7-38 [facility] Comment on above: Order Comment: Speci men Type: BLOOD SPECIMENOrdering Facility: [facility] Address: [address] [place] [address] Performed By: #### 2 4323-8 ####[facility] LABCLIA [id number] [place] [address] Anion gap [Moles/Vol] 11 mmol/L Normal 9-18 [facility] Comment on above: Order Comment: Speci men Type: BLOOD SPECIMENOrdering Facility: [facility] Address: [address] [place] [address] Performed By: #### 2 4323-8 ####[facility] LABCLIA [id number] [place] [address] AST [Catalytic activity/Vol] 118 U/L High 13-35 [facility] Comment on above: Order Comment: Speci men Type: BLOOD SPECIMENOrdering Facility: [facility] Address: [address] [place] [address] Performed By: #### 2 4323-8 ####[facility] LABCLIA [id number] [place] [address] Bilirubin [Mass/Vol] 0.2 mg/dL Normal 0.2-1.3 [facility] Comment on above: Order Comment: Speci men Type: BLOOD SPECIMENOrdering Facility: [facility] Address: [address] [place] [address] Performed By: #### 2 4323-8 ####[facility] LABCLIA [id number] [place] [address] Calcium [Mass/Vol] 9.6 mg/dL Normal 8.5-10.2 [facility] Comment on above: Order Comment: Speci men Type: BLOOD SPECIMENOrdering Facility: [facility] Address: [address] [place] [address] Performed By: #### 2 4323-8 ####[facility] LABCLIA [id number] [place] [address] Chloride [Moles/Vol] 103 mmol/L Normal 97-105 [facility] Comment on above: Order Comment: Speci men Type: BLOOD SPECIMENOrdering Facility: [facility] Address: [address] [place] [address] Performed By: #### 2 4323-8 ####[facility] LABCLIA [id number] [place] [address] CO2 [Moles/Vol] 24 mmol/L Normal 22-30 [facility] Comment on above: Order Comment: Speci men Type: BLOOD SPECIMENOrdering Facility: [facility] Address: [address] [place] [address] Performed By: #### 2 4323-8 ####[facility] LABCLIA [id number] [place] [address] Creatinine [Mass/Vol] 1.15 mg/dL High 0.58-0.96 [facility] Comment on above: Order Comment: Speci men Type: BLOOD SPECIMENOrdering Facility: [facility] Address: [address] [place] [address] Performed By: #### 2 4323-8 ####[facility] LABCLIA [id number] [place] [address] Creatinine and Glomerular filtration rate.predicted panel (S/P/Bld) 52 mL/min/1.73m??? Low >=60 [facility] Comment on above: Order Comment: Speci men Type: BLOOD SPECIMENOrdering Facility: [facility] Address: [address] [place] [address] Result Comment: Cristal mated Glomerular Filtration Rate [...] actual GFR. Performed By: #### 2 4323-8 ####[facility] LABCLIA [id number] [place] [address] Glucose [Mass/Vol] 169 mg/dL High 74-99 [facility] Comment on above: Order Comment: Speci men Type: BLOOD SPECIMENOrdering Facility: [facility] Address: [address] [place] [address] Result Comment: The [place] Diabetes Association (ADA) provides guidance for cutoff [...] Standards of Medical Care in Diabetes 2016, [place] Diabetes Association. Diabetes Care. 2016.39(Suppl 1). Performed By: #### 2 4323-8 ####[facility] LABCLIA [id number] [place] [address] Potassium [Moles/Vol] 4.3 mmol/L Normal 3.7-5.1 [facility] Comment on above: Order Comment: Speci men Type: BLOOD SPECIMENOrdering Facility: [facility] Address: [address] [place] [address] Performed By: #### 2 4323-8 ####[facility] LABCLIA [id number] [place] [address] Protein [Mass/Vol] 6.4 g/dL Normal 6.3-8.0 [facility] Comment on above: Order Comment: Speci men Type: BLOOD SPECIMENOrdering Facility: [facility] Address: [address] [place] [address] Performed By: #### 2 4323-8 ####[facility] LABCLIA [id number] [place] [address] Sodium [Moles/Vol] 138 mmol/L Normal 136-144 [facility] Comment on above: Order Comment: Speci men Type: BLOOD SPECIMENOrdering Facility: [facility] Address: [address] [place] [address] Performed By: #### 2 4323-8 ####[facility] LABCLIA [id number] [place] [address] Urea nitrogen [Mass/Vol] 16 mg/dL Normal 7-21 [facility] Comment on above: Order Comment: Speci men Type: BLOOD SPECIMENOrdering Facility: [facility] Address: [address] [place] [address] Performed By: #### 2 4323-8 ####[facility] LABCLIA [id number] [place] [address] CBC W Auto Differential pane l (Bld)on 01-07-2024 Basophils (Bld) [#/Vol] 0.03 10*3/uL [place] Basophils/100 WBC (Bld) 0.4 % [facility] Differential cell count method Nom (Bld) Auto [facility] Eosinophils (Bld) [#/Vol] 0.24 10*3/uL [place] Eosinophils/100 WBC (Bld) 3.2 % [facility] Erythrocyte distribution width (RBC) [Ratio] 18.1 % High 11.5 - 15.0 % [facility] Hematocrit (Bld) [Volume fraction] 33.5 % Low 36.0 - 46.0 % [facility] Hemoglobin (Bld) [Mass/Vol] 11.0 g/dL Low 11.5 - 15.5 g/dL [facility] Immature granulocytes (Bld) [#/Vol] 0.03 10*3/uL [place] Immature granulocytes/100 WBC (Bld) 0.4 % [facility] Interpretation and review of laboratory results Abnormal [facility] Lymphocytes (Bld) [#/Vol] 0.98 10*3/uL Low [facility] Lymphocytes/100 WBC (Bld) 13.0 % [facility] MCH (RBC) [Entitic mass] 31.9 pg 26.0 - 34.0 pg [facility] MCHC (RBC) [Mass/Vol] 32.8 g/dL 30.5 - 36.0 g/dL [facility] MCV (RBC) [Entitic vol] 97.1 fL 80.0 - 100.0 fL [facility] Monocytes (Bld) [#/Vol] 0.31 10*3/uL [place] Monocytes/100 WBC (Bld) 4.1 % [facility] Neutrophils (Bld) [#/Vol] 5.93 10*3/uL [facility] Neutrophils/100 WBC (Bld) 78.9 % [facility] Nucleated RBC (Bld) [#/Vol] NINF [facility] Nucleated RBC/100 WBC (Bld) [Ratio] 0.0 % /100 WBC [facility] Platelet mean volume (Bld) [Entitic vol] 9.8 fL 9.0 - 12.7 fL [facility] Platelets (Bld) [#/Vol] 320 10*3/uL [facility] RBC (Bld) [#/Vol] 3.45 10*6/uL Low 3.90 - 5.20 m/uL [facility] WBC (Bld) [#/Vol] 7.52 10*3/uL [facility] Basophils (Bld) [#/Vol] 0.03 10*3/uL Normal <0.11 [facility] Comment on above: Order Comment: Speci men Type: BLOOD SPECIMENOrdering Facility: [facility] Address: [address] [place] [address] Performed By: #### 5 7021-8 ####[facility] LABCLIA [id number] [place] [address] Basophils/100 WBC (Bld) 0.4 % Normal [facility] Comment on above: Order Comment: Speci men Type: BLOOD SPECIMENOrdering Facility: [facility] Address: [address] [place] [address] Performed By: #### 5 7021-8 ####[facility] LABCLIA [id number] [place] [address] Differential cell count method Nom (Bld) Auto Normal [facility] Comment on above: Order Comment: Speci men Type: BLOOD SPECIMENOrdering Facility: [facility] Address: [address] [place] [address] Performed By: #### 5 7021-8 ####[facility] LABCLIA [id number] [place] [address] Eosinophils (Bld) [#/Vol] 0.24 10*3/uL Normal <0.46 [facility] Comment on above: Order Comment: Speci men Type: BLOOD SPECIMENOrdering Facility: [facility] Address: [address] [place] [address] Performed By: #### 5 7021-8 ####[facility] LABCLIA [id number] [place] [address] Eosinophils/100 WBC (Bld) 3.2 % Normal [facility] Comment on above: Order Comment: Speci men Type: BLOOD SPECIMENOrdering Facility: [facility] Address: [address] [place] [address] Performed By: #### 5 7021-8 ####[facility] LABCLIA [id number] [place] [address] Erythrocyte distribution width (RBC) [Ratio] 18.1 % High 11.5-15.0 [facility] Comment on above: Order Comment: Speci men Type: BLOOD SPECIMENOrdering Facility: [facility] Address: [address] [place] [address] Performed By: #### 5 7021-8 ####[facility] LABCLIA [id number] [place] [address] Hematocrit (Bld) [Volume fraction] 33.5 % Low 36.0-46.0 [facility] Comment on above: Order Comment: Speci men Type: BLOOD SPECIMENOrdering Facility: [facility] Address: [address] [place] [address] Performed By: #### 5 7021-8 ####[facility] LABCLIA [id number] [place] [address] Hemoglobin (Bld) [Mass/Vol] 11.0 g/dL Low 11.5-15.5 [facility] Comment on above: Order Comment: Speci men Type: BLOOD SPECIMENOrdering Facility: [facility] Address: [address] [place] [address] Performed By: #### 5 7021-8 ####[facility] LABCLIA [id number] [place] [address] Immature granulocytes (Bld) [#/Vol] 0.03 10*3/uL Normal <0.10 [facility] Comment on above: Order Comment: Speci men Type: BLOOD SPECIMENOrdering Facility: [facility] Address: [address] [place] [address] Performed By: #### 5 7021-8 ####[facility] LABCLIA [id number] [place] [address] Immature granulocytes/100 WBC (Bld) 0.4 % Normal [facility] Comment on above: Order Comment: Speci men Type: BLOOD SPECIMENOrdering Facility: [facility] Address: [address] [place] [address] Performed By: #### 5 7021-8 ####[facility] LABIA [id number] [place] [address] Lymphocytes (Bld) [#/Vol] 0.98 10*3/uL Low 1.00-4.00 [facility] Comment on above: Order Comment: Speci men Type: BLOOD SPECIMENOrdering Facility: [facility] Address: [address] [place] [address] Performed By: #### 5 7021-8 ####[facility] LABCLIA [id number] [place] [address] Lymphocytes/100 WBC (Bld) 13.0 % Normal [facility] Comment on above: Order Comment: Speci men Type: BLOOD SPECIMENOrdering Facility: [facility] Address: [address] [place] [address] Performed By: #### 5 7021-8 ####[facility] LABIA [id number] [place] [address] MCH (RBC) [Entitic mass] 31.9 pg Normal 26.0-34.0 [facility] Comment on above: Order Comment: Speci men Type: BLOOD SPECIMENOrdering Facility: [facility] Address: [address] [place] [address] Performed By: #### 5 7021-8 ####[facility] LABCLIA [id number] [place] [address] MCHC (RBC) [Mass/Vol] 32.8 g/dL Normal 30.5-36.0 [facility] Comment on above: Order Comment: Speci men Type: BLOOD SPECIMENOrdering Facility: [facility] Address: [address] [place] [address] Performed By: #### 5 7021-8 ####[facility] LABCLIA [id number] [place] [address] MCV (RBC) [Entitic vol] 97.1 fL Normal 80.0-100.0 [facility] Comment on above: Order Comment: Speci men Type: BLOOD SPECIMENOrdering Facility: [facility] Address: [address] [place] [address] Performed By: #### 5 7021-8 ####[facility] LABCLIA [id number] [place] [address] Monocytes (Bld) [#/Vol] 0.31 10*3/uL Normal <0.87 [facility] Comment on above: Order Comment: Speci men Type: BLOOD SPECIMENOrdering Facility: [facility] Address: [address] [place] [address] Performed By: #### 5 7021-8 ####[facility] LABCLIA [id number] [place] [address] Monocytes/100 WBC (Bld) 4.1 % Normal [facility] Comment on above: Order Comment: Speci men Type: BLOOD SPECIMENOrdering Facility: [facility] Address: [address] [place] [address] Performed By: #### 5 7021-8 ####[facility] LABCLIA [id number] [place] [address] Neutrophils (Bld) [#/Vol] 5.93 10*3/uL Normal 1.45-7.50 [facility] Comment on above: Order Comment: Speci men Type: BLOOD SPECIMENOrdering Facility: [facility] Address: [address] [place] [address] Performed By: #### 5 7021-8 ####[facility] LABCLIA [id number] [place] [address] Neutrophils/100 WBC (Bld) 78.9 % Normal [facility] Comment on above: Order Comment: Speci men Type: BLOOD SPECIMENOrdering Facility: [facility] Address: [address] [place] [address] Performed By: #### 5 7021-8 ####[facility] LABCLIA [id number] [place] [address] Nucleated RBC (Bld) [#/Vol] 10*3/uL Normal <0.01 [facility] Comment on above: Order Comment: Speci men Type: BLOOD SPECIMENOrdering Facility: [facility] Address: [address] [place] [address] Performed By: #### 5 7021-8 ####[facility] LABCLIA [id number] [place] [address] Nucleated RBC/100 WBC (Bld) [Ratio] 0.0 /100 WBC Normal [facility] Comment on above: Order Comment: Speci men Type: BLOOD SPECIMENOrdering Facility: [facility] Address: [address] [place] [address] Performed By: #### 5 7021-8 ####[facility] LABCLIA [id number] [place] [address] Platelet mean volume (Bld) [Entitic vol] 9.8 fL Normal 9.0-12.7 [facility] Comment on above: Order Comment: Speci men Type: BLOOD SPECIMENOrdering Facility: [facility] Address: [address] [place] [address] Performed By: #### 5 7021-8 ####[facility] LABCLIA [id number] [place] [address] Platelets (Bld) [#/Vol] 320 10*3/uL Normal 150-400 [facility] Comment on above: Order Comment: Speci men Type: BLOOD SPECIMENOrdering Facility: [facility] Address: [address] [place] [address] Performed By: #### 5 7021-8 ####[facility] LABIA [id number] [place] [address] RBC (Bld) [#/Vol] 3.45 10*6/uL Low 3.90-5.20 [facility] Comment on above: Order Comment: Speci men Type: BLOOD SPECIMENOrdering Facility: [facility] Address: [address] [place] [address] Performed By: #### 5 7021-8 ####[facility] LABIA [id number] [place] [address] WBC (Bld) [#/Vol] 7.52 10*3/uL Normal 3.70-11.00 [facility] Comment on above: Order Comment: Speci men Type: BLOOD SPECIMENOrdering Facility: [facility] Address: [address] [place] [address] Performed By: #### 5 7021-8 ####[facility] LABIA [id number] [place] [address] CNOVSPon 01-07-2024 CNOVSP Normal [facility] CNPNon 01-07-2024 CNPN Normal [facility] Comprehensive metabolic 2000 panelOrdered By: Jennifer Rosa on 01-07-2024 Albumin [Mass/Vol] 4.0 g/dL 3.9 - 4.9 g/dL [facility] ALP [Catalytic activity/Vol] 100 U/L 34 - 123 U/L [facility] ALT [Catalytic activity/Vol] 29 U/L 7 - 38 U/L [facility] Anion gap [Moles/Vol] 9 mmol/L 9 - 18 mmol/L [facility] AST [Catalytic activity/Vol] 16 U/L 13 - 35 U/L [facility] Bilirubin [Mass/Vol] 0.4 mg/dL 0.2 - 1 .3 mg/dL [facility] Calcium [Mass/Vol] 9.7 mg/dL 8.5 - 10. 2 mg/dL [facility] Chloride [Moles/Vol] 101 mmol/L 97 - 10 5 mmol/L [facility] CO2 [Moles/Vol] 28 mmol/L 22 - 30 mmol/L [facility] Creatinine [Mass/Vol] 1.23 mg/dL High 0.58 - 0.96 mg/dL [facility] GFR/1.73 sq M.predicted among non-blacks MDRD (S/P/Bld) [Vol rate/Area] 48 mL/min/{1.73_m2} Low - PINF [facility] Comment on above: Estimated Glomerular Filtration Rate (eGFR) is calculated using the 2020 CKD-EPI creatinine equation. This equation utilizes serum creatinine, sex, and age as parameters. The creatinine assay has traceable calibration to isotope dilution-mass spectrometry. Refer to KDIGO guidelines for clinical interpretation. In patients with unstable renal function, e.g. those with acute kidney injury, the eGFR may not accurately reflect actual GFR. Glucose [Mass/Vol] 154 mg/dL High 74 - 99 mg/dL [facility] Comment on above: The [place] Diabete s Association (ADA) provides guidance for cutoff values [...] Standards of Medical Care in Diabetes 2016, [place] [employer]. Diabetes Care. 2016.39(Suppl 1). Interpretation and review of laboratory results Abnormal [facility] Potassium [Moles/Vol] 4.5 mmol/L 3.7 - 5.1 mmol/L [facility] Protein [Mass/Vol] 6.8 g/dL 6.3 - 8.0 g/dL [facility] Sodium [Moles/Vol] 138 mmol/L 136 - 144 mmol/L [facility] Urea nitrogen [Mass/Vol] 25 mg/dL High 7 - 21 mg/dL [facility] Comprehensive metabolic 2000 panelon 01-07-2024 Albumin [Mass/Vol] 4.0 g/dL Normal 3.9-4.9 [facility] Comment on above: Order Comment: Speci men Type: BLOOD SPECIMENOrdering Facility: [facility] Address: [address] [place] [address] Performed By: #### 2 4323-8 ####[facility] LABCLIA [id number] [place] [address] ALP [Catalytic activity/Vol] 100 U/L Normal 34-123 [facility] Comment on above: Order Comment: Speci men Type: BLOOD SPECIMENOrdering Facility: [facility] Address: [address] [place] [address] Performed By: #### 2 4323-8 ####[facility] LABCLIA [id number] [place] [address] ALT [Catalytic activity/Vol] 29 U/L Normal 7-38 [facility] Comment on above: Order Comment: Speci men Type: BLOOD SPECIMENOrdering Facility: [facility] Address: [address] [place] [address] Performed By: #### 2 4323-8 ####[facility] LABCLIA [id number] [place] [address] Anion gap [Moles/Vol] 9 mmol/L Normal 9-18 [facility] Comment on above: Order Comment: Speci men Type: BLOOD SPECIMENOrdering Facility: [facility] Address: [address] [place] [address] Performed By: #### 2 4323-8 ####[facility] LABCLIA [id number] [place] [address] AST [Catalytic activity/Vol] 16 U/L Normal 13-35 [facility] Comment on above: Order Comment: Speci men Type: BLOOD SPECIMENOrdering Facility: [facility] Address: [address] [place] [address] Performed By: #### 2 4323-8 ####[facility] LABCLIA [id number] [place] [address] Bilirubin [Mass/Vol] 0.4 mg/dL Normal 0.2-1.3 [facility] Comment on above: Order Comment: Speci men Type: BLOOD SPECIMENOrdering Facility: [facility] Address: [address] [place] [address] Performed By: #### 2 4323-8 ####[facility] LABCLIA [id number] [place] [address] Calcium [Mass/Vol] 9.7 mg/dL Normal 8.5-10.2 [facility] Comment on above: Order Comment: Speci men Type: BLOOD SPECIMENOrdering Facility: [facility] Address: [address] [place] [address] Performed By: #### 2 4323-8 ####[facility] LABCLIA [id number] [place] [address] Chloride [Moles/Vol] 101 mmol/L Normal 97-105 [facility] Comment on above: Order Comment: Speci men Type: BLOOD SPECIMENOrdering Facility: [facility] Address: [address] [place] [address] Performed By: #### 2 4323-8 ####[facility] LABCLIA [id number] [place] [address] CO2 [Moles/Vol] 28 mmol/L Normal 22-30 [facility] Comment on above: Order Comment: Speci men Type: BLOOD SPECIMENOrdering Facility: [facility] Address: [address] [place] [address] Performed By: #### 2 4323-8 ####[facility] LABCLIA [id number] [place] [address] Creatinine [Mass/Vol] 1.23 mg/dL High 0.58-0.96 [facility] Comment on above: Order Comment: Alison mccain Type: BLOOD SPECIMENOrdering Facility: [facility] Address: [address] [place] [address] Performed By: #### 2 4323-8 ####[facility] LABIA [id number] [place] [address] Creatinine and Glomerular filtration rate.predicted panel (S/P/Bld) 48 mL/min/1.73m??? Low >=60 [facility] Comment on above: Order Comment: Alison mccain Type: BLOOD SPECIMENOrdering Facility: [facility] Address: [address] [place] [address] Result Comment: Cristal mated Glomerular Filtration Rate [...] actual GFR. Performed By: #### 2 4323-8 ####[facility] LABCLIA [id number] [place] [address] Glucose [Mass/Vol] 154 mg/dL High 74-99 [facility] Comment on above: Order Comment: Alison mccain Type: BLOOD SPECIMENOrdering Facility: [facility] Address: [address] [place] [address] Result Comment: The [place] Diabetes Association (ADA) provides guidance for cutoff [...] Standards of Medical Care in Diabetes 2016, [place] Diabetes Association. Diabetes Care. 2016.39(Suppl 1). Performed By: #### 2 4323-8 ####[facility] LABCLIA [id number] [place] [address] Potassium [Moles/Vol] 4.5 mmol/L Normal 3.7-5.1 [facility] Comment on above: Order Comment: Speci men Type: BLOOD SPECIMENOrdering Facility: [facility] Address: [address] [place] [address] Performed By: #### 2 4323-8 ####[facility] LABCLIA [id number] [place] [address] Protein [Mass/Vol] 6.8 g/dL Normal 6.3-8.0 [facility] Comment on above: Order Comment: Speci men Type: BLOOD SPECIMENOrdering Facility: [facility] Address: [address] [place] [address] Performed By: #### 2 4323-8 ####[facility] LABCLIA [id number] [place] [address] Sodium [Moles/Vol] 138 mmol/L Normal 136-144 [facility] Comment on above: Order Comment: Speci men Type: BLOOD SPECIMENOrdering Facility: [facility] Address: [address] [place] [address] Performed By: #### 2 4323-8 ####[facility] LABCLIA [id number] [place] [address] Urea nitrogen [Mass/Vol] 25 mg/dL High 7-21 [facility] Comment on above: Order Comment: Speci men Type: BLOOD SPECIMENOrdering Facility: [facility] Address: [address] [place] [address] Performed By: #### 2 4323-8 ####[facility] LABCLIA [id number] [place] [address] CBC W Auto Differential pane l (Bld)on 12-31-2023 Basophils (Bld) [#/Vol] 0.03 10*3/uL [place] Basophils/100 WBC (Bld) 0.5 % [facility] Differential cell count method Nom (Bld) Auto [facility] Eosinophils (Bld) [#/Vol] 0.21 10*3/uL [place] Eosinophils/100 WBC (Bld) 3.8 % [facility] Erythrocyte distribution width (RBC) [Ratio] 18.6 % High 11.5 - 15.0 % [facility] Hematocrit (Bld) [Volume fraction] 36.5 % 36.0 - 46.0 % [facility] Hemoglobin (Bld) [Mass/Vol] 12.2 g/dL 11.5 - 15.5 g/dL [facility] Immature granulocytes (Bld) [#/Vol] 0.03 10*3/uL [place] Immature granulocytes/100 WBC (Bld) 0.5 % [facility] Interpretation and review of laboratory results Abnormal [facility] Lymphocytes (Bld) [#/Vol] 1.16 10*3/uL [facility] Lymphocytes/100 WBC (Bld) 20.9 % [facility] MCH (RBC) [Entitic mass] 32.0 pg 26.0 - 34.0 pg [facility] MCHC (RBC) [Mass/Vol] 33.4 g/dL 30.5 - 36.0 g/dL [facility] MCV (RBC) [Entitic vol] 95.8 fL 80.0 - 100.0 fL [facility] Monocytes (Bld) [#/Vol] 0.44 10*3/uL [place] Monocytes/100 WBC (Bld) 7.9 % [facility] Neutrophils (Bld) [#/Vol] 3.68 10*3/uL [facility] Neutrophils/100 WBC (Bld) 66.4 % [facility] Nucleated RBC (Bld) [#/Vol] [place] Nucleated RBC/100 WBC (Bld) [Ratio] 0.0 % /100 WBC [facility] Platelet mean volume (Bld) [Entitic vol] 9.2 fL 9.0 - 12.7 fL [facility] Platelets (Bld) [#/Vol] 320 10*3/uL [facility] RBC (Bld) [#/Vol] 3.81 10*6/uL Low 3.90 - 5.20 m/uL [facility] WBC (Bld) [#/Vol] 5.55 10*3/uL [facility] Basophils (Bld) [#/Vol] 0.03 10*3/uL Normal <0.11 [facility] Comment on above: Order Comment: Speci men Type: BLOOD SPECIMENOrdering Facility: [facility] Address: [address] [place] [address] Performed By: #### 5 7021-8 ####[facility] LABCLIA [id number] [place] [address] Basophils/100 WBC (Bld) 0.5 % Normal [facility] Comment on above: Order Comment: Speci men Type: BLOOD SPECIMENOrdering Facility: [facility] Address: [address] [place] [address] Performed By: #### 5 7021-8 ####[facility] LABCLIA [id number] [place] [address] Differential cell count method Nom (Bld) Auto Normal [facility] Comment on above: Order Comment: Speci men Type: BLOOD SPECIMENOrdering Facility: [facility] Address: [address] [place] [address] Performed By: #### 5 7021-8 ####[facility] LABCLIA [id number] [place] [address] Eosinophils (Bld) [#/Vol] 0.21 10*3/uL Normal <0.46 [facility] Comment on above: Order Comment: Speci men Type: BLOOD SPECIMENOrdering Facility: [facility] Address: [address] [place] [address] Performed By: #### 5 7021-8 ####[facility] LABCLIA [id number] [place] [address] Eosinophils/100 WBC (Bld) 3.8 % Normal [facility] Comment on above: Order Comment: Speci men Type: BLOOD SPECIMENOrdering Facility: [facility] Address: [address] [place] [address] Performed By: #### 5 7021-8 ####[facility] LABCLIA [id number] [place] [address] Erythrocyte distribution width (RBC) [Ratio] 18.6 % High 11.5-15.0 [facility] Comment on above: Order Comment: Speci men Type: BLOOD SPECIMENOrdering Facility: [facility] Address: [address] [place] [address] Performed By: #### 5 7021-8 ####[facility] LABCLIA [id number] [place] [address] Hematocrit (Bld) [Volume fraction] 36.5 % Normal 36.0-46.0 [facility] Comment on above: Order Comment: Speci men Type: BLOOD SPECIMENOrdering Facility: [facility] Address: [address] [place] [address] Performed By: #### 5 7021-8 ####[facility] LABCLIA [id number] [place] [address] Hemoglobin (Bld) [Mass/Vol] 12.2 g/dL Normal 11.5-15.5 [facility] Comment on above: Order Comment: Speci men Type: BLOOD SPECIMENOrdering Facility: [facility] Address: [address] [place] [address] Performed By: #### 5 7021-8 ####[facility] LABCLIA [id number] [place] [address] Immature granulocytes (Bld) [#/Vol] 0.03 10*3/uL Normal <0.10 [facility] Comment on above: Order Comment: Speci men Type: BLOOD SPECIMENOrdering Facility: [facility] Address: [address] [place] [address] Performed By: #### 5 7021-8 ####[facility] LABCLIA [id number] [place] [address] Immature granulocytes/100 WBC (Bld) 0.5 % Normal [facility] Comment on above: Order Comment: Speci men Type: BLOOD SPECIMENOrdering Facility: [facility] Address: [address] [place] [address] Performed By: #### 5 7021-8 ####[facility] LABCLIA [id number] [place] [address] Lymphocytes (Bld) [#/Vol] 1.16 10*3/uL Normal 1.00-4.00 [facility] Comment on above: Order Comment: Speci men Type: BLOOD SPECIMENOrdering Facility: [facility] Address: [address] [place] [address] Performed By: #### 5 7021-8 ####[facility] LABCLIA [id number] [place] [address] Lymphocytes/100 WBC (Bld) 20.9 % Normal [facility] Comment on above: Order Comment: Speci men Type: BLOOD SPECIMENOrdering Facility: [facility] Address: [address] [place] [address] Performed By: #### 5 7021-8 ####[facility] LABCLIA [id number] [place] [address] MCH (RBC) [Entitic mass] 32.0 pg Normal 26.0-34.0 [facility] Comment on above: Order Comment: Speci men Type: BLOOD SPECIMENOrdering Facility: [facility] Address: [address] [place] [address] Performed By: #### 5 7021-8 ####[facility] LABCLIA [id number] [place] [address] MCHC (RBC) [Mass/Vol] 33.4 g/dL Normal 30.5-36.0 [facility] Comment on above: Order Comment: Speci men Type: BLOOD SPECIMENOrdering Facility: [facility] Address: [address] [place] [address] Performed By: #### 5 7021-8 ####[facility] LABCLIA [id number] [place] [address] MCV (RBC) [Entitic vol] 95.8 fL Normal 80.0-100.0 [facility] Comment on above: Order Comment: Speci men Type: BLOOD SPECIMENOrdering Facility: [facility] Address: [address] [place] [address] Performed By: #### 5 7021-8 ####[facility] LABCLIA [id number] [place] [address] Monocytes (Bld) [#/Vol] 0.44 10*3/uL Normal <0.87 [facility] Comment on above: Order Comment: Speci men Type: BLOOD SPECIMENOrdering Facility: [facility] Address: [address] [place] [address] Performed By: #### 5 7021-8 ####[facility] LABCLIA [id number] [place] [address] Monocytes/100 WBC (Bld) 7.9 % Normal [facility] Comment on above: Order Comment: Speci men Type: BLOOD SPECIMENOrdering Facility: [facility] Address: [address] [place] [address] Performed By: #### 5 7021-8 ####[facility] LABCLIA [id number] [place] [address] Neutrophils (Bld) [#/Vol] 3.68 10*3/uL Normal 1.45-7.50 [facility] Comment on above: Order Comment: Speci men Type: BLOOD SPECIMENOrdering Facility: [facility] Address: [address] [place] [address] Performed By: #### 5 7021-8 ####[facility] LABCLIA [id number] [place] [address] Neutrophils/100 WBC (Bld) 66.4 % Normal [facility] Comment on above: Order Comment: Speci men Type: BLOOD SPECIMENOrdering Facility: [facility] Address: [address] [place] [address] Performed By: #### 5 7021-8 ####[facility] LABCLIA [id number] [place] [address] Nucleated RBC (Bld) [#/Vol] 10*3/uL Normal <0.01 [facility] Comment on above: Order Comment: Speci men Type: BLOOD SPECIMENOrdering Facility: [facility] Address: [address] [place] [address] Performed By: #### 5 7021-8 ####[facility] LABCLIA [id number] [place] [address] Nucleated RBC/100 WBC (Bld) [Ratio] 0.0 /100 WBC Normal [facility] Comment on above: Order Comment: Speci men Type: BLOOD SPECIMENOrdering Facility: [facility] Address: [address] [place] [address] Performed By: #### 5 7021-8 ####[facility] LABCLIA [id number] [place] [address] Platelet mean volume (Bld) [Entitic vol] 9.2 fL Normal 9.0-12.7 [facility] Comment on above: Order Comment: Speci men Type: BLOOD SPECIMENOrdering Facility: [facility] Address: [address] [place] [address] Performed By: #### 5 7021-8 ####[facility] LABCLIA [id number] [place] [address] Platelets (Bld) [#/Vol] 320 10*3/uL Normal 150-400 [facility] Comment on above: Order Comment: Speci men Type: BLOOD SPECIMENOrdering Facility: [facility] Address: [address] [place], [place] [address], [place] [address] Performed By: #### 5 7021-8 ####[facility] LABCLIA [id number] [place] [address] RBC (Bld) [#/Vol] 3.81 10*6/uL Low 3.90-5.20 [facility] Comment on above: Order Comment: Speci men Type: BLOOD SPECIMENOrdering Facility: [facility] Address: [address] [place], [place] [address]K[place] [address] Performed By: #### 5 7021-8 ####[facility] LABCLIA [id number] [place] [address] WBC (Bld) [#/Vol] 5.55 10*3/uL Normal 3.70-11.00 [facility] Comment on above: Order Comment: Speci men Type: BLOOD SPECIMENOrdering Facility: [facility] Address: [address] [place], [place] [address] [address] Performed By: #### 5 7021-8 ####[facility] LABCLIA [id number] [place] [address] Comprehensive metabolic 2000 panelOrdered By: Jennifer Rosa on 12-31-2023 Albumin [Mass/Vol] 4.1 g/dL 3.9 - 4.9 g/dL [facility] ALP [Catalytic activity/Vol] 99 U/L 34 - 123 U/L [facility] ALT [Catalytic activity/Vol] 37 U/L 7 - 38 U/L [facility] Anion gap [Moles/Vol] 10 mmol/L 9 - 18 mmol/L [facility] AST [Catalytic activity/Vol] 22 U/L 13 - 35 U/L [facility] Bilirubin [Mass/Vol] 0.6 mg/dL 0.2 - 1 .3 mg/dL [facility] Calcium [Mass/Vol] 9.3 mg/dL 8.5 - 10. 2 mg/dL [facility] Chloride [Moles/Vol] 103 mmol/L 97 - 10 5 mmol/L [facility] CO2 [Moles/Vol] 27 mmol/L 22 - 30 mmol/L [facility] Creatinine [Mass/Vol] 1.16 mg/dL High 0.58 - 0.96 mg/dL [facility] GFR/1.73 sq M.predicted among non-blacks MDRD (S/P/Bld) [Vol rate/Area] 51 mL/min/{1.73_m2} Low - PINF [facility] Comment on above: Estimated Glomerular Filtration Rate (eGFR) is calculated using the 2020 CKD-EPI creatinine equation. This equation utilizes serum creatinine, sex, and age as parameters. The creatinine assay has traceable calibration to isotope dilution-mass spectrometry. Refer to KDIGO guidelines for clinical interpretation. In patients with unstable renal function, e.g. those with acute kidney injury, the eGFR may not accurately reflect actual GFR. Glucose [Mass/Vol] 131 mg/dL High 74 - 99 mg/dL [facility] Comment on above: The [place] Diabete s Association (ADA) provides guidance for cutoff values [...] Standards of Medical Care in Diabetes 2016, [place] Diabetes Association. Diabetes Care. 2016.39(Suppl 1). Interpretation and review of laboratory results Abnormal [facility] Potassium [Moles/Vol] 4.1 mmol/L 3.7 - 5.1 mmol/L [facility] Protein [Mass/Vol] 6.5 g/dL 6.3 - 8.0 g/dL [facility] Sodium [Moles/Vol] 140 mmol/L 136 - 144 mmol/L [facility] Urea nitrogen [Mass/Vol] 23 mg/dL High 7 - 21 mg/dL [facility] Comprehensive metabolic 2000 panelon 12-31-2023 Albumin [Mass/Vol] 4.1 g/dL Normal 3.9-4.9 [facility] Comment on above: Order Comment: Speci men Type: BLOOD SPECIMENOrdering Facility: [facility] Address: [address] [place] [id number] Performed By: #### 2 4323-8 ####[facility] LABCLIA [id number] [place] [address] ALP [Catalytic activity/Vol] 99 U/L Normal 34-123 [facility] Comment on above: Order Comment: Speci men Type: BLOOD SPECIMENOrdering Facility: [facility] Address: [address] [place] [address] Performed By: #### 2 4323-8 ####[facility] LABCLIA [id number] [place] [address] ALT [Catalytic activity/Vol] 37 U/L Normal 7-38 [facility] Comment on above: Order Comment: Speci men Type: BLOOD SPECIMENOrdering Facility: [facility] Address: [address] [place] [address] Performed By: #### 2 4323-8 ####[facility] LABCLIA [id number] [place] [address] Anion gap [Moles/Vol] 10 mmol/L Normal 9-18 [facility] Comment on above: Order Comment: Speci men Type: BLOOD SPECIMENOrdering Facility: [facility] Address: [address] [place] [address] Performed By: #### 2 4323-8 ####[facility] LABCLIA [id number] [place] [address] AST [Catalytic activity/Vol] 22 U/L Normal 13-35 [facility] Comment on above: Order Comment: Speci men Type: BLOOD SPECIMENOrdering Facility: [facility] Address: [address] [place] [address] Performed By: #### 2 4323-8 ####[facility] LABCLIA [id number] [place] [address] Bilirubin [Mass/Vol] 0.6 mg/dL Normal 0.2-1.3 [facility] Comment on above: Order Comment: Speci men Type: BLOOD SPECIMENOrdering Facility: [facility] Address: [address] [place] [address] Performed By: #### 2 4323-8 ####[facility] LABCLIA [id number] [place] [address] Calcium [Mass/Vol] 9.3 mg/dL Normal 8.5-10.2 [facility] Comment on above: Order Comment: Speci men Type: BLOOD SPECIMENOrdering Facility: [facility] Address: [address] [place] [address] Performed By: #### 2 4323-8 ####[facility] LABCLIA [id number] [place] [address] Chloride [Moles/Vol] 103 mmol/L Normal 97-105 [facility] Comment on above: Order Comment: Speci men Type: BLOOD SPECIMENOrdering Facility: [facility] Address: [address] [place] [address] Performed By: #### 2 4323-8 ####[facility] LABCLIA [id number] [place] [address] CO2 [Moles/Vol] 27 mmol/L Normal 22-30 [facility] Comment on above: Order Comment: Speci men Type: BLOOD SPECIMENOrdering Facility: [facility] Address: [address] [place] [address] Performed By: #### 2 4323-8 ####[facility] LABCLIA [id number] [place] [address] Creatinine [Mass/Vol] 1.16 mg/dL High 0.58-0.96 [facility] Comment on above: Order Comment: Speci men Type: BLOOD SPECIMENOrdering Facility: [facility] Address: [address] [place] [address] Performed By: #### 2 4323-8 ####[facility] LABCLIA [id number] [place] [address] Creatinine and Glomerular filtration rate.predicted panel (S/P/Bld) 51 mL/min/1.73m??? Low >=60 [facility] Comment on above: Order Comment: Alison mccain Type: BLOOD SPECIMENOrdering Facility: [facility] Address: [address] [place] [address] Result Comment: Cristal mated Glomerular Filtration Rate [...] actual GFR. Performed By: #### 2 4323-8 ####[facility] LABCLIA [id number] [place] [address] Glucose [Mass/Vol] 131 mg/dL High 74-99 [facility] Comment on above: Order Comment: Alison mccain Type: BLOOD SPECIMENOrdering Facility: [facility] Address: [address] [place] [address] Result Comment: The [place] Diabetes Association (ADA) provides guidance for cutoff [...] Standards of Medical Care in Diabetes 2016, [place] Diabetes [employer]. Diabetes Care. 2016.39(Suppl 1). Performed By: #### 2 4323-8 ####[facility] LABCLIA [id number] [place] [address] Potassium [Moles/Vol] 4.1 mmol/L Normal 3.7-5.1 [facility] Comment on above: Order Comment: Speci men Type: BLOOD SPECIMENOrdering Facility: [facility] Address: [address] [place] [address] Performed By: #### 2 4323-8 ####[facility] LABCLIA [id number] [place] [address] Protein [Mass/Vol] 6.5 g/dL Normal 6.3-8.0 [facility] Comment on above: Order Comment: Speci men Type: BLOOD SPECIMENOrdering Facility: [facility] Address: [address] [place] [address] Performed By: #### 2 4323-8 ####[facility] LABCLIA [id number] [place] [address] Sodium [Moles/Vol] 140 mmol/L Normal 136-144 [facility] Comment on above: Order Comment: Speci men Type: BLOOD SPECIMENOrdering Facility: [facility] Address: [address] [place] [address] Performed By: #### 2 4323-8 ####[facility] LABCLIA [id number] [place] [address] Urea nitrogen [Mass/Vol] 23 mg/dL High 7-21 [facility] Comment on above: Order Comment: Speci men Type: BLOOD SPECIMENOrdering Facility: [facility] Address: [address] [place] [address] Performed By: #### 2 4323-8 ####[facility] LABCLIA [id number] [place] [address] CBC W Auto Differential pane l (Bld)on 12-24-2023 Basophils (Bld) [#/Vol] 0.04 10*3/uL [place] Basophils/100 WBC (Bld) 0.7 % [facility] Differential cell count method Nom (Bld) Auto [facility] Eosinophils (Bld) [#/Vol] 0.18 10*3/uL [place] Eosinophils/100 WBC (Bld) 3.0 % [facility] Erythrocyte distribution width (RBC) [Ratio] 18.4 % High 11.5 - 15.0 % [facility] Hematocrit (Bld) [Volume fraction] 35.8 % Low 36.0 - 46.0 % [facility] Hemoglobin (Bld) [Mass/Vol] 11.9 g/dL 11.5 - 15.5 g/dL [facility] Immature granulocytes (Bld) [#/Vol] NINF [facility] [facility] Immature granulocytes/100 WBC (Bld) 0.3 % [facility] Interpretation and review of laboratory results Abnormal [facility] Lymphocytes (Bld) [#/Vol] 1.25 10*3/uL [facility] Lymphocytes/100 WBC (Bld) 20.6 % [facility] MCH (RBC) [Entitic mass] 31.6 pg 26.0 - 34.0 pg [facility] MCHC (RBC) [Mass/Vol] 33.2 g/dL 30.5 - 36.0 g/dL [facility] MCV (RBC) [Entitic vol] 95.2 fL 80.0 - 100.0 fL [facility] Monocytes (Bld) [#/Vol] 0.57 10*3/uL NINF [facility] Monocytes/100 WBC (Bld) 9.4 % [facility] Neutrophils (Bld) [#/Vol] 4.02 10*3/uL [facility] Neutrophils/100 WBC (Bld) 66.0 % [facility] Nucleated RBC (Bld) [#/Vol] NINF [facility] Nucleated RBC/100 WBC (Bld) [Ratio] 0.0 % /100 WBC [facility] Platelet mean volume (Bld) [Entitic vol] 9.2 fL 9.0 - 12.7 fL [facility] Platelets (Bld) [#/Vol] 322 10*3/uL [facility] RBC (Bld) [#/Vol] 3.76 10*6/uL Low 3.90 - 5.20 m/uL [facility] WBC (Bld) [#/Vol] 6.08 10*3/uL [facility] Basophils (Bld) [#/Vol] 0.04 10*3/uL Normal <0.11 [facility] Comment on above: Order Comment: Speci men Type: BLOOD SPECIMENOrdering Facility: [facility] Address: [address] [place] [address] Performed By: #### 5 7021-8 ####[facility] LABCLIA [id number] [place] [address] Basophils/100 WBC (Bld) 0.7 % Normal [facility] Comment on above: Order Comment: Speci men Type: BLOOD SPECIMENOrdering Facility: [facility] Address: [address] [place] [address] Performed By: #### 5 7021-8 ####[facility] LABCLIA [id number] [place] [address] Differential cell count method Nom (Bld) Auto Normal [facility] Comment on above: Order Comment: Speci men Type: BLOOD SPECIMENOrdering Facility: [facility] Address: [address] [place] [address] Performed By: #### 5 7021-8 ####[facility] LABCLIA [id number] [place] [address] Eosinophils (Bld) [#/Vol] 0.18 10*3/uL Normal <0.46 [facility] Comment on above: Order Comment: Speci men Type: BLOOD SPECIMENOrdering Facility: [facility] Address: [address] [place] [address] Performed By: #### 5 7021-8 ####[facility] LABCLIA [id number] [place] [address] Eosinophils/100 WBC (Bld) 3.0 % Normal [facility] Comment on above: Order Comment: Speci men Type: BLOOD SPECIMENOrdering Facility: [facility] Address: [address] [place] [address] Performed By: #### 5 7021-8 ####[facility] LABCLIA [id number] [place] [address] Erythrocyte distribution width (RBC) [Ratio] 18.4 % High 11.5-15.0 [facility] Comment on above: Order Comment: Speci men Type: BLOOD SPECIMENOrdering Facility: [facility] Address: [address] [place] [address] Performed By: #### 5 7021-8 ####[facility] LABCLIA [id number] [place] [address] Hematocrit (Bld) [Volume fraction] 35.8 % Low 36.0-46.0 [facility] Comment on above: Order Comment: Speci men Type: BLOOD SPECIMENOrdering Facility: [facility] Address: [address] [place] [address] Performed By: #### 5 7021-8 ####[facility] LABCLIA [id number] [place] [address] Hemoglobin (Bld) [Mass/Vol] 11.9 g/dL Normal 11.5-15.5 [facility] Comment on above: Order Comment: Speci men Type: BLOOD SPECIMENOrdering Facility: [facility] Address: [address] [place] [address] Performed By: #### 5 7021-8 ####[facility] LABCLIA [id number] [place] [address] Immature granulocytes (Bld) [#/Vol] 10*3/uL Normal <0.10 [facility] Comment on above: Order Comment: Speci men Type: BLOOD SPECIMENOrdering Facility: [facility] Address: [address] [place] [address] Performed By: #### 5 7021-8 ####[facility] LABCLIA [id number] [place] [address] Immature granulocytes/100 WBC (Bld) 0.3 % Normal [facility] Comment on above: Order Comment: Speci men Type: BLOOD SPECIMENOrdering Facility: [facility] Address: [address] [place] [address] Performed By: #### 5 7021-8 ####[facility] LABCLIA [id number] [place] [address] Lymphocytes (Bld) [#/Vol] 1.25 10*3/uL Normal 1.00-4.00 [facility] Comment on above: Order Comment: Speci men Type: BLOOD SPECIMENOrdering Facility: [facility] Address: [address] [place] [address] Performed By: #### 5 7021-8 ####[facility] LABCLIA [id number] [place] [address] Lymphocytes/100 WBC (Bld) 20.6 % Normal [facility] Comment on above: Order Comment: Speci men Type: BLOOD SPECIMENOrdering Facility: [facility] Address: [address] [place] [address] Performed By: #### 5 7021-8 ####[facility] LABCLIA [id number] [place] [address] MCH (RBC) [Entitic mass] 31.6 pg Normal 26.0-34.0 [facility] Comment on above: Order Comment: Speci men Type: BLOOD SPECIMENOrdering Facility: [facility] Address: [address] [place] [address] Performed By: #### 5 7021-8 ####[facility] LABCLIA [id number] [place] [address] MCHC (RBC) [Mass/Vol] 33.2 g/dL Normal 30.5-36.0 [facility] Comment on above: Order Comment: Speci men Type: BLOOD SPECIMENOrdering Facility: [facility] Address: [address] [place] [address] Performed By: #### 5 7021-8 ####[facility] LABIA [id number] [place] [address] MCV (RBC) [Entitic vol] 95.2 fL Normal 80.0-100.0 [facility] Comment on above: Order Comment: Speci men Type: BLOOD SPECIMENOrdering Facility: [facility] Address: [address] [place] [address] Performed By: #### 5 7021-8 ####[facility] LABCLIA [id number] [place] [address] Monocytes (Bld) [#/Vol] 0.57 10*3/uL Normal <0.87 [facility] Comment on above: Order Comment: Speci men Type: BLOOD SPECIMENOrdering Facility: [facility] Address: [address] [place] [address] Performed By: #### 5 7021-8 ####[facility] LABCLIA [id number] [place] [address] Monocytes/100 WBC (Bld) 9.4 % Normal [facility] Comment on above: Order Comment: Speci men Type: BLOOD SPECIMENOrdering Facility: [facility] Address: [address] [place] [address] Performed By: #### 5 7021-8 ####[facility] LABCLIA [id number] [place] [address] Neutrophils (Bld) [#/Vol] 4.02 10*3/uL Normal 1.45-7.50 [facility] Comment on above: Order Comment: Speci men Type: BLOOD SPECIMENOrdering Facility: [facility] Address: [address] [place] [address] Performed By: #### 5 7021-8 ####[facility] LABCLIA [id number] [place] [address] Neutrophils/100 WBC (Bld) 66.0 % Normal [facility] Comment on above: Order Comment: Speci men Type: BLOOD SPECIMENOrdering Facility: [facility] Address: [address] [place] [address] Performed By: #### 5 7021-8 ####[facility] LABCLIA [id number] [place] [address] Nucleated RBC (Bld) [#/Vol] 10*3/uL Normal <0.01 [facility] Comment on above: Order Comment: Speci men Type: BLOOD SPECIMENOrdering Facility: [facility] Address: [address] [place] [address] Performed By: #### 5 7021-8 ####[facility] LABCLIA [id number] [place] [address] Nucleated RBC/100 WBC (Bld) [Ratio] 0.0 /100 WBC Normal [facility] Comment on above: Order Comment: Speci men Type: BLOOD SPECIMENOrdering Facility: [facility] Address: [address] [place] [address] Performed By: #### 5 7021-8 ####[facility] LABCLIA [id number] [place] [address] Platelet mean volume (Bld) [Entitic vol] 9.2 fL Normal 9.0-12.7 [facility] Comment on above: Order Comment: Speci men Type: BLOOD SPECIMENOrdering Facility: [facility] Address: [address] [place] [address] Performed By: #### 5 7021-8 ####[facility] LABIA [id number] [place] [address] Platelets (Bld) [#/Vol] 322 10*3/uL Normal 150-400 [facility] Comment on above: Order Comment: Speci men Type: BLOOD SPECIMENOrdering Facility: [facility] Address: [address] [place] [address] Performed By: #### 5 7021-8 ####[facility] LABIA [id number] [place] [address] RBC (Bld) [#/Vol] 3.76 10*6/uL Low 3.90-5.20 [facility] Comment on above: Order Comment: Speci men Type: BLOOD SPECIMENOrdering Facility: [facility] Address: [address] [place] [address] Performed By: #### 5 7021-8 ####[facility] LABCLIA [id number] [place] [address] WBC (Bld) [#/Vol] 6.08 10*3/uL Normal 3.70-11.00 [facility] Comment on above: Order Comment: Speci men Type: BLOOD SPECIMENOrdering Facility: [facility] Address: [address] [place], [place] [address] [address] Performed By: #### 5 7021-8 ####[facility] LABCLIA [id number] [place] [address] CNOVSPon 12-24-2023 CNOVSP Normal [facility] Comprehensive metabolic 2000 panelOrdered By: Lebron Pederson on 12-24-2023 Albumin [Mass/Vol] 4.1 g/dL 3.9 - 4.9 g/dL [facility] ALP [Catalytic activity/Vol] 98 U/L 34 - 123 U/L [facility] ALT [Catalytic activity/Vol] 39 U/L High 7 - 38 U/L [facility] Anion gap [Moles/Vol] 12 mmol/L 9 - 18 mmol/L [facility] AST [Catalytic activity/Vol] 26 U/L 13 - 35 U/L [facility] Bilirubin [Mass/Vol] 0.4 mg/dL 0.2 - 1 .3 mg/dL [facility] Calcium [Mass/Vol] 9.4 mg/dL 8.5 - 10. 2 mg/dL [facility] Chloride [Moles/Vol] 104 mmol/L 97 - 10 5 mmol/L [facility] CO2 [Moles/Vol] 27 mmol/L 22 - 30 mmol/L [facility] Creatinine [Mass/Vol] 1.12 mg/dL High 0.58 - 0.96 mg/dL [facility] GFR/1.73 sq M.predicted among non-blacks MDRD (S/P/Bld) [Vol rate/Area] 53 mL/min/{1.73_m2} Low - PINF [facility] Comment on above: Estimated Glomerular Filtration Rate (eGFR) is calculated using the 2020 CKD-EPI creatinine equation. This equation utilizes serum creatinine, sex, and age as parameters. The creatinine assay has traceable calibration to isotope dilution-mass spectrometry. Refer to KDIGO guidelines for clinical interpretation. In patients with unstable renal function, e.g. those with acute kidney injury, the eGFR may not accurately reflect actual GFR. Glucose [Mass/Vol] 152 mg/dL High 74 - 99 mg/dL [facility] Comment on above: The [place] Diab[employer] s Association (ADA) provides guidance for cutoff values [...] Standards of Medical Care in Diabetes 2016, [place] [employer]. Diabetes Care. 2016.39(Suppl 1). Interpretation and review of laboratory results Abnormal [facility] Potassium [Moles/Vol] 4.0 mmol/L 3.7 - 5.1 mmol/L [facility] Protein [Mass/Vol] 6.7 g/dL 6.3 - 8.0 g/dL [facility] Sodium [Moles/Vol] 143 mmol/L 136 - 144 mmol/L [facility] Urea nitrogen [Mass/Vol] 23 mg/dL High 7 - 21 mg/dL [facility] Comprehensive metabolic 2000 panelon 12-24-2023 Albumin [Mass/Vol] 4.1 g/dL Normal 3.9-4.9 [facility] Comment on above: Order Comment: Speci kalyn Type: BLOOD SPECIMENOrdering Facility: [facility] Address: [address] [place] [address] Performed By: #### 2 4323-8 ####[facility] LABCLIA [id number] [place] [address] ALP [Catalytic activity/Vol] 98 U/L Normal 34-123 [facility] Comment on above: Order Comment: Joeli kalyn Type: BLOOD SPECIMENOrdering Facility: [facility] Address: [address] [place] [address] Performed By: #### 2 4323-8 ####[facility] LABCLIA [id number] [place] [address] ALT [Catalytic activity/Vol] 39 U/L High 7-38 [facility] Comment on above: Order Comment: Speci men Type: BLOOD SPECIMENOrdering Facility: [facility] Address: [address] [place] [address] Performed By: #### 2 4323-8 ####[facility] LABCLIA [id number] [place] [address] Anion gap [Moles/Vol] 12 mmol/L Normal 9-18 [facility] Comment on above: Order Comment: Speci men Type: BLOOD SPECIMENOrdering Facility: [facility] Address: [address] [place] [address] Performed By: #### 2 4323-8 ####[facility] LABCLIA [id number] [place] [address] AST [Catalytic activity/Vol] 26 U/L Normal 13-35 [facility] Comment on above: Order Comment: Speci men Type: BLOOD SPECIMENOrdering Facility: [facility] Address: [address] [place] [address] Performed By: #### 2 4323-8 ####[facility] LABCLIA [id number] [place] [address] Bilirubin [Mass/Vol] 0.4 mg/dL Normal 0.2-1.3 [facility] Comment on above: Order Comment: Speci men Type: BLOOD SPECIMENOrdering Facility: [facility] Address: [address] [place], [place] [address] Performed By: #### 2 4323-8 ####[facility] LABCLIA [id number] [place] [address] Calcium [Mass/Vol] 9.4 mg/dL Normal 8.5-10.2 [facility] Comment on above: Order Comment: Speci men Type: BLOOD SPECIMENOrdering Facility: [facility] Address: [address] [place] [address] Performed By: #### 2 4323-8 ####[facility] LABCLIA [id number] [place] [address] Chloride [Moles/Vol] 104 mmol/L Normal 97-105 [facility] Comment on above: Order Comment: Speci men Type: BLOOD SPECIMENOrdering Facility: [facility] Address: [address] [place] [address] Performed By: #### 2 4323-8 ####[facility] LABCLIA [id number] [place] [address] CO2 [Moles/Vol] 27 mmol/L Normal 22-30 [facility] Comment on above: Order Comment: Speci men Type: BLOOD SPECIMENOrdering Facility: [facility] Address: [address] [place] [address] Performed By: #### 2 4323-8 ####[facility] LABCLIA [id number] [place] [address] Creatinine [Mass/Vol] 1.12 mg/dL High 0.58-0.96 [facility] Comment on above: Order Comment: Speci men Type: BLOOD SPECIMENOrdering Facility: [facility] Address: [address] [place] [address] Performed By: #### 2 4323-8 ####[facility] LABCLIA [id number] [place] [address] Creatinine and Glomerular filtration rate.predicted panel (S/P/Bld) 53 mL/min/1.73m??? Low >=60 [facility] Comment on above: Order Comment: Speci men Type: BLOOD SPECIMENOrdering Facility: [facility] Address: [address] [place] [address] Result Comment: Cristal mated Glomerular Filtration Rate [...] actual GFR. Performed By: #### 2 4323-8 ####[facility] LABCLIA [id number] [place] [address] Glucose [Mass/Vol] 152 mg/dL High 74-99 [facility] Comment on above: Order Comment: Speci men Type: BLOOD SPECIMENOrdering Facility: [facility] Address: [address] [place] [address] Result Comment: The [place] Diabetes Association (ADA) provides guidance for cutoff [...] Standards of Medical Care in Diabetes 2016, [place] Diabetes Association. Diabetes Care. 2016.39(Suppl 1). Performed By: #### 2 4323-8 ####[facility] LABCLIA [id number] [place] [address] Potassium [Moles/Vol] 4.0 mmol/L Normal 3.7-5.1 [facility] Comment on above: Order Comment: Speci men Type: BLOOD SPECIMENOrdering Facility: [facility] Address: [address] [place] [address] Performed By: #### 2 4323-8 ####[facility] LABCLIA [id number] [place] [address] Protein [Mass/Vol] 6.7 g/dL Normal 6.3-8.0 [facility] Comment on above: Order Comment: Speci men Type: BLOOD SPECIMENOrdering Facility: [facility] Address: [address] [place] [address] Performed By: #### 2 4323-8 ####[facility] LABCLIA [id number] [place] [address] Sodium [Moles/Vol] 143 mmol/L Normal 136-144 [facility] Comment on above: Order Comment: Speci men Type: BLOOD SPECIMENOrdering Facility: [facility] Address: [address] [place] [address] Performed By: #### 2 4323-8 ####[facility] LABCLIA [id number] [place] [address] Urea nitrogen [Mass/Vol] 23 mg/dL High 7-21 [facility] Comment on above: Order Comment: Speci men Type: BLOOD SPECIMENOrdering Facility: [facility] Address: [address] [place] [address] Performed By: #### 2 4323-8 ####[facility] LABCLIA [id number] [place] [address] CBC W Auto Differential pane l (Bld)on 12-10-2023 Basophils (Bld) [#/Vol] 0.06 10*3/uL <0.11 k/uL [facility] Basophils/100 WBC (Bld) 0.8 % [facility] Differential cell count method Nom (Bld) Auto [facility] Eosinophils (Bld) [#/Vol] 0.69 10*3/uL High <0.46 k/uL [facility] Eosinophils/100 WBC (Bld) 9.1 % [facility] Erythrocyte distribution width (RBC) [Ratio] 16.7 % High 11.5 - 15.0 % [facility] Hematocrit (Bld) [Volume fraction] 33.6 % Low 36.0 - 46.0 % [facility] Hemoglobin (Bld) [Mass/Vol] 11.0 g/dL Low 11.5 - 15.5 g/dL [facility] Immature granulocytes (Bld) [#/Vol] 0.04 10*3/uL <0.10 k/uL [facility] Immature granulocytes/100 WBC (Bld) 0.5 % [facility] Lymphocytes (Bld) [#/Vol] 1.35 10*3/uL 1.00 - 4.00 k/uL [facility] Lymphocytes/100 WBC (Bld) 17.9 % [facility] MCH (RBC) [Entitic mass] 30.6 pg 26.0 - 34.0 pg [facility] MCHC (RBC) [Mass/Vol] 32.7 g/dL 30.5 - 36.0 g/dL [facility] MCV (RBC) [Entitic vol] 93.6 fL 80.0 - 100.0 fL [facility] Monocytes (Bld) [#/Vol] 0.32 10*3/uL <0.87 k/uL [facility] Monocytes/100 WBC (Bld) 4.2 % [facility] Neutrophils (Bld) [#/Vol] 5.10 10*3/uL 1.45 - 7.50 k/uL [facility] Neutrophils/100 WBC (Bld) 67.5 % [facility] Nucleated RBC (Bld) [#/Vol] <0.01 k/uL [facility] Nucleated RBC/100 WBC (Bld) [Ratio] 0.0 /100 WBC [facility] Platelet mean volume (Bld) [Entitic vol] 9.9 fL 9.0 - 12.7 fL [facility] Platelets (Bld) [#/Vol] 335 10*3/uL 150 - 400 k/uL [facility] RBC (Bld) [#/Vol] 3.59 10*6/uL Low 3.90 - 5.20 m/uL [facility] WBC (Bld) [#/Vol] 7.56 10*3/uL 3.70 - 11.00 k/uL [facility] Basophils (Bld) [#/Vol] 0.06 10*3/uL Normal <0.11 [facility] Comment on above: Order Comment: Speci men Type: BLOOD SPECIMENOrdering Facility: [facility] Address: [address] [place] [address] Performed By: #### 5 7021-8 ####[facility] LABCLIA [id number] [place] [address] Basophils/100 WBC (Bld) 0.8 % Normal [facility] Comment on above: Order Comment: Speci men Type: BLOOD SPECIMENOrdering Facility: [facility] Address: [address] [place] [address] Performed By: #### 5 7021-8 ####[facility] LABCLIA [id number] [place] [address] Differential cell count method Nom (Bld) Auto Normal [facility] Comment on above: Order Comment: Speci men Type: BLOOD SPECIMENOrdering Facility: [facility] Address: [address] [place] [address] Performed By: #### 5 7021-8 ####[facility] LABCLIA [id number] [place] [address] Eosinophils (Bld) [#/Vol] 0.69 10*3/uL High <0.46 [facility] Comment on above: Order Comment: Speci men Type: BLOOD SPECIMENOrdering Facility: [facility] Address: [address] [place] [address] Performed By: #### 5 7021-8 ####[facility] LABCLIA [id number] [place] [address] Eosinophils/100 WBC (Bld) 9.1 % Normal [facility] Comment on above: Order Comment: Speci men Type: BLOOD SPECIMENOrdering Facility: [facility] Address: [address] [place] [address] Performed By: #### 5 7021-8 ####[facility] LABCLIA [id number] [place] [address] Erythrocyte distribution width (RBC) [Ratio] 16.7 % High 11.5-15.0 [facility] Comment on above: Order Comment: Speci men Type: BLOOD SPECIMENOrdering Facility: [facility] Address: [address] [place] [address] Performed By: #### 5 7021-8 ####[facility] LABCLIA [id number] [place] [address] Hematocrit (Bld) [Volume fraction] 33.6 % Low 36.0-46.0 [facility] Comment on above: Order Comment: Speci men Type: BLOOD SPECIMENOrdering Facility: [facility] Address: [address] [place] [address] Performed By: #### 5 7021-8 ####[facility] LABCLIA [id number] [place] [address] Hemoglobin (Bld) [Mass/Vol] 11.0 g/dL Low 11.5-15.5 [facility] Comment on above: Order Comment: Speci men Type: BLOOD SPECIMENOrdering Facility: [facility] Address: [address] [place] [address] Performed By: #### 5 7021-8 ####[facility] LABCLIA [id number] [place] [address] Immature granulocytes (Bld) [#/Vol] 0.04 10*3/uL Normal <0.10 [facility] Comment on above: Order Comment: Speci men Type: BLOOD SPECIMENOrdering Facility: [facility] Address: [address] [place] [address] Performed By: #### 5 7021-8 ####[facility] LABCLIA [id number] [place] [address] Immature granulocytes/100 WBC (Bld) 0.5 % Normal [facility] Comment on above: Order Comment: Speci men Type: BLOOD SPECIMENOrdering Facility: [facility] Address: [address] [place] [address] Performed By: #### 5 7021-8 ####[facility] LABIA [id number] [place] [address] Lymphocytes (Bld) [#/Vol] 1.35 10*3/uL Normal 1.00-4.00 [facility] Comment on above: Order Comment: Speci men Type: BLOOD SPECIMENOrdering Facility: [facility] Address: [address] [place] [address] Performed By: #### 5 7021-8 ####[facility] LABCLIA [id number] [place] [address] Lymphocytes/100 WBC (Bld) 17.9 % Normal [facility] Comment on above: Order Comment: Speci men Type: BLOOD SPECIMENOrdering Facility: [facility] Address: [address] [place] [address] Performed By: #### 5 7021-8 ####[facility] LABCLIA [id number] [place] [address] MCH (RBC) [Entitic mass] 30.6 pg Normal 26.0-34.0 [facility] Comment on above: Order Comment: Speci men Type: BLOOD SPECIMENOrdering Facility: [facility] Address: [address] [place] [address] Performed By: #### 5 7021-8 ####[facility] LABCLIA [id number] [place] [address] MCHC (RBC) [Mass/Vol] 32.7 g/dL Normal 30.5-36.0 [facility] Comment on above: Order Comment: Speci men Type: BLOOD SPECIMENOrdering Facility: [facility] Address: [address] [place] [address] Performed By: #### 5 7021-8 ####[facility] LABCLIA [id number] [place] [address] MCV (RBC) [Entitic vol] 93.6 fL Normal 80.0-100.0 [facility] Comment on above: Order Comment: Speci men Type: BLOOD SPECIMENOrdering Facility: [facility] Address: [address] [place] [address] Performed By: #### 5 7021-8 ####[facility] LABCLIA [id number] [place] [address] Monocytes (Bld) [#/Vol] 0.32 10*3/uL Normal <0.87 [facility] Comment on above: Order Comment: Speci men Type: BLOOD SPECIMENOrdering Facility: [facility] Address: [address] [place] [address] Performed By: #### 5 7021-8 ####[facility] LABCLIA [id number] [place] [address] Monocytes/100 WBC (Bld) 4.2 % Normal [facility] Comment on above: Order Comment: Speci men Type: BLOOD SPECIMENOrdering Facility: [facility] Address: [address] [place] [address] Performed By: #### 5 7021-8 ####[facility] LABCLIA [id number] [place] [address] Neutrophils (Bld) [#/Vol] 5.10 10*3/uL Normal 1.45-7.50 [facility] Comment on above: Order Comment: Speci men Type: BLOOD SPECIMENOrdering Facility: [facility] Address: [address] [place] [address] Performed By: #### 5 7021-8 ####[facility] LABCLIA [id number] [place] [address] Neutrophils/100 WBC (Bld) 67.5 % Normal [facility] Comment on above: Order Comment: Speci men Type: BLOOD SPECIMENOrdering Facility: [facility] Address: [address] [place] [address] Performed By: #### 5 7021-8 ####[facility] LABCLIA [id number] [place] [address] Nucleated RBC (Bld) [#/Vol] 10*3/uL Normal <0.01 [facility] Comment on above: Order Comment: Speci men Type: BLOOD SPECIMENOrdering Facility: [facility] Address: [address] [place] [address] Performed By: #### 5 7021-8 ####[facility] LABCLIA [id number] [place] [address] Nucleated RBC/100 WBC (Bld) [Ratio] 0.0 /100 WBC Normal [facility] Comment on above: Order Comment: Speci men Type: BLOOD SPECIMENOrdering Facility: [facility] Address: [address] [place] [address] Performed By: #### 5 7021-8 ####[facility] LABCLIA [id number] [place] [address] Platelet mean volume (Bld) [Entitic vol] 9.9 fL Normal 9.0-12.7 [facility] Comment on above: Order Comment: Speci men Type: BLOOD SPECIMENOrdering Facility: [facility] Address: [address] [place] [address] Performed By: #### 5 7021-8 ####[facility] LABCLIA [id number] [place] [address] Platelets (Bld) [#/Vol] 335 10*3/uL Normal 150-400 [facility] Comment on above: Order Comment: Speci men Type: BLOOD SPECIMENOrdering Facility: [facility] Address: [address] [place] [address] Performed By: #### 5 7021-8 ####[facility] LABCLIA [id number] [place] [address] RBC (Bld) [#/Vol] 3.59 10*6/uL Low 3.90-5.20 [facility] Comment on above: Order Comment: Speci men Type: BLOOD SPECIMENOrdering Facility: [facility] Address: [address] [place] [address] Performed By: #### 5 7021-8 ####[facility] LABCLIA [id number] [place] [address] WBC (Bld) [#/Vol] 7.56 10*3/uL Normal 3.70-11.00 [facility] Comment on above: Order Comment: Speci men Type: BLOOD SPECIMENOrdering Facility: [facility] Address: [address] [place] [address] Performed By: #### 5 7021-8 ####[facility] LABCLIA [id number] [place] [address] CNOVSPon 12-10-2023 CNOVSP Normal [facility] Comprehensive metabolic 2000 panelon 12-10-2023 Albumin [Mass/Vol] 4.0 g/dL 3.9 - 4.9 g/dL [facility] ALP [Catalytic activity/Vol] 101 U/L 34 - 123 U/L [facility] ALT [Catalytic activity/Vol] 28 U/L 7 - 38 U/L [facility] Anion gap [Moles/Vol] 12 mmol/L 9 - 18 mmol/L [facility] AST [Catalytic activity/Vol] 17 U/L 13 - 35 U/L [facility] Bilirubin [Mass/Vol] 0.3 mg/dL 0.2 - 1 .3 mg/dL [facility] Calcium [Mass/Vol] 10.0 mg/dL 8.5 - 10. 2 mg/dL [facility] Chloride [Moles/Vol] 107 mmol/L High 97 - 10 5 mmol/L [facility] CO2 [Moles/Vol] 24 mmol/L 22 - 30 mmol/L [facility] Creatinine [Mass/Vol] 1.25 mg/dL High 0.58 - 0.96 mg/dL [facility] Estimated Glomerular Filtration Rate 47 mL/min/1.73m Low >=60 mL/min/1.7 3m [facility] Glucose [Mass/Vol] 159 mg/dL High 74 - 99 mg/dL [facility] Potassium [Moles/Vol] 5.0 mmol/L 3.7 - 5.1 mmol/L [facility] Protein [Mass/Vol] 6.6 g/dL 6.3 - 8.0 g/dL [facility] Sodium [Moles/Vol] 143 mmol/L 136 - 144 mmol/L [facility] Urea nitrogen [Mass/Vol] 28 mg/dL High 7 - 21 mg/dL [facility] Albumin [Mass/Vol] 4.0 g/dL Normal 3.9-4.9 [facility] Comment on above: Order Comment: Speci men Type: BLOOD SPECIMENOrdering Facility: [facility] Address: [address] [place] [address] Performed By: #### 2 4323-8 ####[facility] LABCLIA [id number] [place] [address] ALP [Catalytic activity/Vol] 101 U/L Normal 34-123 [facility] Comment on above: Order Comment: Speci men Type: BLOOD SPECIMENOrdering Facility: [facility] Address: [address] [place] [address] Performed By: #### 2 4323-8 ####[facility] LABCLIA [id number] [place] [address] ALT [Catalytic activity/Vol] 28 U/L Normal 7-38 [facility] Comment on above: Order Comment: Speci men Type: BLOOD SPECIMENOrdering Facility: [facility] Address: [address] [place] [address] Performed By: #### 2 4323-8 ####[facility] LABCLIA [id number] [place] [address] Anion gap [Moles/Vol] 12 mmol/L Normal 9-18 [facility] Comment on above: Order Comment: Speci men Type: BLOOD SPECIMENOrdering Facility: [facility] Address: [address] [place] [address] Performed By: #### 2 4323-8 ####[facility] LABCLIA [id number] [place] [address] AST [Catalytic activity/Vol] 17 U/L Normal 13-35 [facility] Comment on above: Order Comment: Speci men Type: BLOOD SPECIMENOrdering Facility: [facility] Address: [address] [place] [address] Performed By: #### 2 4323-8 ####[facility] LABCLIA [id number] [place] [address] Bilirubin [Mass/Vol] 0.3 mg/dL Normal 0.2-1.3 [facility] Comment on above: Order Comment: Speci men Type: BLOOD SPECIMENOrdering Facility: [facility] Address: [address] [place] [address] Performed By: #### 2 4323-8 ####[facility] LABCLIA [id number] [place] [address] Calcium [Mass/Vol] 10.0 mg/dL Normal 8.5-10.2 [facility] Comment on above: Order Comment: Speci men Type: BLOOD SPECIMENOrdering Facility: [facility] Address: [address] [place] [address] Performed By: #### 2 4323-8 ####[facility] LABCLIA [id number] [place] [address] Chloride [Moles/Vol] 107 mmol/L High 97-105 [facility] Comment on above: Order Comment: Speci men Type: BLOOD SPECIMENOrdering Facility: [facility] Address: [address] [place] [address] Performed By: #### 2 4323-8 ####[facility] LABCLIA [id number] [place] [address] CO2 [Moles/Vol] 24 mmol/L Normal 22-30 [facility] Comment on above: Order Comment: Speci men Type: BLOOD SPECIMENOrdering Facility: [facility] Address: [address] [place] [address] Performed By: #### 2 4323-8 ####[facility] LABCLIA [id number] [place] [address] Creatinine [Mass/Vol] 1.25 mg/dL High 0.58-0.96 [facility] Comment on above: Order Comment: Speci men Type: BLOOD SPECIMENOrdering Facility: [facility] Address: [address] [place] [address] Performed By: #### 2 4323-8 ####[facility] LABCLIA [id number] [place] [address] Creatinine and Glomerular filtration rate.predicted panel (S/P/Bld) 47 mL/min/1.73m??? Low >=60 [facility] Comment on above: Order Comment: Alison mccain Type: BLOOD SPECIMENOrdering Facility: [facility] Address: [address] [place] [address] Result Comment: Cristal mated Glomerular Filtration Rate [...] actual GFR. Performed By: #### 2 4323-8 ####[facility] LABCLIA [id number] [place] [address] Glucose [Mass/Vol] 159 mg/dL High 74-99 [facility] Comment on above: Order Comment: Alison mccain Type: BLOOD SPECIMENOrdering Facility: [facility] Address: [address] [place] [address] Result Comment: The [place] [employer] (ADA) provides guidance for cutoff [...] Standards of Medical Care in Diabetes 2016, [place] [employer]. Diabetes Care. 2016.39(Suppl 1). Performed By: #### 2 4323-8 ####[facility] LABCLIA [id number] [place] [address] Potassium [Moles/Vol] 5.0 mmol/L Normal 3.7-5.1 [facility] Comment on above: Order Comment: Speci men Type: BLOOD SPECIMENOrdering Facility: [facility] Address: [address] [place] [address] Performed By: #### 2 4323-8 ####[facility] LABCLIA [id number] [place] [address] Protein [Mass/Vol] 6.6 g/dL Normal 6.3-8.0 [facility] Comment on above: Order Comment: Speci men Type: BLOOD SPECIMENOrdering Facility: [facility] Address: [address] [place] [address] Performed By: #### 2 4323-8 ####[facility] LABCLIA [id number] [place] [address] Sodium [Moles/Vol] 143 mmol/L Normal 136-144 [facility] Comment on above: Order Comment: Speci men Type: BLOOD SPECIMENOrdering Facility: [facility] Address: [address] [place] [address] Performed By: #### 2 4323-8 ####[facility] LABCLIA [id number] [place] [address] Urea nitrogen [Mass/Vol] 28 mg/dL High 7-21 [facility] Comment on above: Order Comment: Speci men Type: BLOOD SPECIMENOrdering Facility: [facility] Address: [address] [place] [address] Performed By: #### 2 4323-8 ####[facility] LABIA [id number] [place] [address] CNPNon 12-09-2023 CNPN Normal [facility] CBC W Auto Differential pane l (Bld)on 12-03-2023 Basophils (Bld) [#/Vol] 0.11 10*3/uL High <0.11 k/uL [facility] Basophils/100 WBC (Bld) 1.9 % [facility] Differential cell count method Nom (Bld) Auto [facility] Eosinophils (Bld) [#/Vol] 0.21 10*3/uL <0.46 k/uL [facility] Eosinophils/100 WBC (Bld) 3.6 % [facility] Erythrocyte distribution width (RBC) [Ratio] 16.6 % High 11.5 - 15.0 % [facility] Hematocrit (Bld) [Volume fraction] 33.9 % Low 36.0 - 46.0 % [facility] Hemoglobin (Bld) [Mass/Vol] 11.3 g/dL Low 11.5 - 15.5 g/dL [facility] Immature granulocytes (Bld) [#/Vol] 0.03 10*3/uL <0.10 k/uL [facility] Immature granulocytes/100 WBC (Bld) 0.5 % [facility] Lymphocytes (Bld) [#/Vol] 1.19 10*3/uL 1.00 - 4.00 k/uL [facility] Lymphocytes/100 WBC (Bld) 20.4 % [facility] MCH (RBC) [Entitic mass] 31.0 pg 26.0 - 34.0 pg [facility] MCHC (RBC) [Mass/Vol] 33.3 g/dL 30.5 - 36.0 g/dL [facility] MCV (RBC) [Entitic vol] 92.9 fL 80.0 - 100.0 fL [facility] Monocytes (Bld) [#/Vol] 0.54 10*3/uL <0.87 k/uL [facility] Monocytes/100 WBC (Bld) 9.2 % [facility] Neutrophils (Bld) [#/Vol] 3.76 10*3/uL 1.45 - 7.50 k/uL [facility] Neutrophils/100 WBC (Bld) 64.4 % [facility] Nucleated RBC (Bld) [#/Vol] <0.01 k/uL [facility] Nucleated RBC/100 WBC (Bld) [Ratio] 0.0 /100 WBC [facility] Platelet mean volume (Bld) [Entitic vol] 9.3 fL 9.0 - 12.7 fL [facility] Platelets (Bld) [#/Vol] 556 10*3/uL High 150 - 400 k/uL [facility] RBC (Bld) [#/Vol] 3.65 10*6/uL Low 3.90 - 5.20 m/uL [facility] WBC (Bld) [#/Vol] 5.84 10*3/uL 3.70 - 11.00 k/uL [facility] Basophils (Bld) [#/Vol] 0.11 10*3/uL High <0.11 [facility] Comment on above: Order Comment: Speci men Type: BLOOD SPECIMENOrdering Facility: [facility] Address: [address] [place] [address] Performed By: #### 5 7021-8 ####[facility] LABCLIA [id number] [place] [address] Basophils/100 WBC (Bld) 1.9 % Normal [facility] Comment on above: Order Comment: Speci men Type: BLOOD SPECIMENOrdering Facility: [facility] Address: [address] [place] [address] Performed By: #### 5 7021-8 ####[facility] LABCLIA [id number] [place] [address] Differential cell count method Nom (Bld) Auto Normal [facility] Comment on above: Order Comment: Speci men Type: BLOOD SPECIMENOrdering Facility: [facility] Address: [address] [place] [address] Performed By: #### 5 7021-8 ####[facility] LABCLIA [id number] [place] [address] Eosinophils (Bld) [#/Vol] 0.21 10*3/uL Normal <0.46 [facility] Comment on above: Order Comment: Speci men Type: BLOOD SPECIMENOrdering Facility: [facility] Address: [address] [place] [address] Performed By: #### 5 7021-8 ####[facility] LABCLIA [id number] [place] [address] Eosinophils/100 WBC (Bld) 3.6 % Normal [facility] Comment on above: Order Comment: Speci men Type: BLOOD SPECIMENOrdering Facility: [facility] Address: [address] [place] [address] Performed By: #### 5 7021-8 ####[facility] LABCLIA [id number] [place] [address] Erythrocyte distribution width (RBC) [Ratio] 16.6 % High 11.5-15.0 [facility] Comment on above: Order Comment: Speci men Type: BLOOD SPECIMENOrdering Facility: [facility] Address: [address] [place] [address] Performed By: #### 5 7021-8 ####[facility] LABCLIA [id number] [place] [address] Hematocrit (Bld) [Volume fraction] 33.9 % Low 36.0-46.0 [facility] Comment on above: Order Comment: Speci men Type: BLOOD SPECIMENOrdering Facility: [facility] Address: [address] [place] [address] Performed By: #### 5 7021-8 ####[facility] LABCLIA [id number] [place] [address] Hemoglobin (Bld) [Mass/Vol] 11.3 g/dL Low 11.5-15.5 [facility] Comment on above: Order Comment: Speci men Type: BLOOD SPECIMENOrdering Facility: [facility] Address: [address] [place] [address] Performed By: #### 5 7021-8 ####[facility] LABCLIA [id number] [place] [address] Immature granulocytes (Bld) [#/Vol] 0.03 10*3/uL Normal <0.10 [facility] Comment on above: Order Comment: Speci men Type: BLOOD SPECIMENOrdering Facility: [facility] Address: [address] [place] [address] Performed By: #### 5 7021-8 ####[facility] LABCLIA [id number] [place] [address] Immature granulocytes/100 WBC (Bld) 0.5 % Normal [facility] Comment on above: Order Comment: Speci men Type: BLOOD SPECIMENOrdering Facility: [facility] Address: [address] [place] [address] Performed By: #### 5 7021-8 ####[facility] LABCLIA [id number] [place] [address] Lymphocytes (Bld) [#/Vol] 1.19 10*3/uL Normal 1.00-4.00 [facility] Comment on above: Order Comment: Speci men Type: BLOOD SPECIMENOrdering Facility: [facility] Address: [address] [place] [address] Performed By: #### 5 7021-8 ####[facility] LABCLIA [id number] [place] [address] Lymphocytes/100 WBC (Bld) 20.4 % Normal [facility] Comment on above: Order Comment: Speci men Type: BLOOD SPECIMENOrdering Facility: [facility] Address: [address] [place] [address] Performed By: #### 5 7021-8 ####[facility] LABCLIA [id number] [place] [address] MCH (RBC) [Entitic mass] 31.0 pg Normal 26.0-34.0 [facility] Comment on above: Order Comment: Speci men Type: BLOOD SPECIMENOrdering Facility: [facility] Address: [address] [place] [address] Performed By: #### 5 7021-8 ####[facility] LABIA [id number] [place] [address] MCHC (RBC) [Mass/Vol] 33.3 g/dL Normal 30.5-36.0 [facility] Comment on above: Order Comment: Speci men Type: BLOOD SPECIMENOrdering Facility: [facility] Address: [address] [place] [address] Performed By: #### 5 7021-8 ####[facility] LABIA [id number] [place] [address] MCV (RBC) [Entitic vol] 92.9 fL Normal 80.0-100.0 [facility] Comment on above: Order Comment: Speci men Type: BLOOD SPECIMENOrdering Facility: [facility] Address: [address] [place] [address] Performed By: #### 5 7021-8 ####[facility] LABIA [id number] [place] [address] Monocytes (Bld) [#/Vol] 0.54 10*3/uL Normal <0.87 [facility] Comment on above: Order Comment: Speci men Type: BLOOD SPECIMENOrdering Facility: [facility] Address: [address] [place] [address] Performed By: #### 5 7021-8 ####[facility] LABIA [id number] [place] [address] Monocytes/100 WBC (Bld) 9.2 % Normal [facility] Comment on above: Order Comment: Speci men Type: BLOOD SPECIMENOrdering Facility: [facility] Address: [address] [place] [address] Performed By: #### 5 7021-8 ####[facility] LABIA [id number] [place] [address] Neutrophils (Bld) [#/Vol] 3.76 10*3/uL Normal 1.45-7.50 [facility] Comment on above: Order Comment: Speci men Type: BLOOD SPECIMENOrdering Facility: [facility] Address: [address] [place] [address] Performed By: #### 5 7021-8 ####[facility] LABIA [id number] [place] [address] Neutrophils/100 WBC (Bld) 64.4 % Normal [facility] Comment on above: Order Comment: Speci men Type: BLOOD SPECIMENOrdering Facility: [facility] Address: [address] [place] [address] Performed By: #### 5 7021-8 ####[facility] LABCLIA [id number] [place] [address] Nucleated RBC (Bld) [#/Vol] 10*3/uL Normal <0.01 [facility] Comment on above: Order Comment: Speci men Type: BLOOD SPECIMENOrdering Facility: [facility] Address: [address] [place] [address] Performed By: #### 5 7021-8 ####[facility] LABCLIA [id number] [place] [address] Nucleated RBC/100 WBC (Bld) [Ratio] 0.0 /100 WBC Normal [facility] Comment on above: Order Comment: Speci men Type: BLOOD SPECIMENOrdering Facility: [facility] Address: [address] [place] [address] Performed By: #### 5 7021-8 ####[facility] LABCLIA [id number] [place] [address] Platelet mean volume (Bld) [Entitic vol] 9.3 fL Normal 9.0-12.7 [facility] Comment on above: Order Comment: Speci men Type: BLOOD SPECIMENOrdering Facility: [facility] Address: [address] [place] [address] Performed By: #### 5 7021-8 ####[facility] LABCLIA [id number] [place] [address] Platelets (Bld) [#/Vol] 556 10*3/uL High 150-400 [facility] Comment on above: Order Comment: Speci men Type: BLOOD SPECIMENOrdering Facility: [facility] Address: [address] [place] [address] Performed By: #### 5 7021-8 ####[facility] LABCLIA [id number] [place] [address] RBC (Bld) [#/Vol] 3.65 10*6/uL Low 3.90-5.20 [facility] Comment on above: Order Comment: Speci men Type: BLOOD SPECIMENOrdering Facility: [facility] Address: [address] [place] [address] Performed By: #### 5 7021-8 ####[facility] LABCLIA [id number] [place] [address] WBC (Bld) [#/Vol] 5.84 10*3/uL Normal 3.70-11.00 [facility] Comment on above: Order Comment: Speci men Type: BLOOD SPECIMENOrdering Facility: [facility] Address: [address] [place] [address] Performed By: #### 5 7021-8 ####[facility] LABIA [id number] [place] [address] CNNURSEon 12-03-2023 CNNURSE Normal [facility] CNOVSPon 12-03-2023 CNOVSP Normal [facility] Comprehensive metabolic 2000 panelon 12-03-2023 Albumin [Mass/Vol] 4.4 g/dL 3.9 - 4.9 g/dL [facility] ALP [Catalytic activity/Vol] 104 U/L 34 - 123 U/L [facility] ALT [Catalytic activity/Vol] 31 U/L 7 - 38 U/L [facility] Anion gap [Moles/Vol] 13 mmol/L 9 - 18 mmol/L [facility] AST [Catalytic activity/Vol] 25 U/L 13 - 35 U/L [facility] Bilirubin [Mass/Vol] 0.3 mg/dL 0.2 - 1 .3 mg/dL [facility] Calcium [Mass/Vol] 10.0 mg/dL 8.5 - 10. 2 mg/dL [facility] Chloride [Moles/Vol] 100 mmol/L 97 - 10 5 mmol/L [facility] CO2 [Moles/Vol] 27 mmol/L 22 - 30 mmol/L [facility] Creatinine [Mass/Vol] 1.59 mg/dL High 0.58 - 0.96 mg/dL [facility] Estimated Glomerular Filtration Rate 35 mL/min/1.73m Low >=60 mL/min/1.7 3m [facility] Glucose [Mass/Vol] 156 mg/dL High 74 - 99 mg/dL [facility] Potassium [Moles/Vol] 4.4 mmol/L 3.7 - 5.1 mmol/L [facility] Protein [Mass/Vol] 7.0 g/dL 6.3 - 8.0 g/dL [facility] Sodium [Moles/Vol] 140 mmol/L 136 - 144 mmol/L [facility] Urea nitrogen [Mass/Vol] 33 mg/dL High 7 - 21 mg/dL [facility]. [facility] Albumin [Mass/Vol] 4.4 g/dL Normal 3.9-4.9 [facility] Comment on above: Order Comment: Speci men Type: BLOOD SPECIMENOrdering Facility: [facility] Address: [address] [place] [address] Performed By: #### 2 4323-8 ####[facility] LABCLIA [id number] [place] [address] ALP [Catalytic activity/Vol] 104 U/L Normal 34-123 [facility] Comment on above: Order Comment: Speci men Type: BLOOD SPECIMENOrdering Facility: [facility] Address: [address] [place] [address] Performed By: #### 2 4323-8 ####[facility] LABCLIA [id number] [place] [address] ALT [Catalytic activity/Vol] 31 U/L Normal 7-38 [facility] Comment on above: Order Comment: Speci men Type: BLOOD SPECIMENOrdering Facility: [facility] Address: [address] [place] [address] Performed By: #### 2 4323-8 ####[facility] LABCLIA [id number] [place] [address] Anion gap [Moles/Vol] 13 mmol/L Normal 9-18 [facility] Comment on above: Order Comment: Speci men Type: BLOOD SPECIMENOrdering Facility: [facility] Address: [address] [place] [address] Performed By: #### 2 4323-8 ####[facility] LABCLIA [id number] [place] [address] AST [Catalytic activity/Vol] 25 U/L Normal 13-35 [facility] Comment on above: Order Comment: Speci men Type: BLOOD SPECIMENOrdering Facility: [facility] Address: [address] [place] [address] Performed By: #### 2 4323-8 ####[facility] LABCLIA [id number] [place] [address] Bilirubin [Mass/Vol] 0.3 mg/dL Normal 0.2-1.3 [facility] Comment on above: Order Comment: Speci men Type: BLOOD SPECIMENOrdering Facility: [facility] Address: [address] [place] [address] Performed By: #### 2 4323-8 ####[facility] LABCLIA [id number] [place] [address] Calcium [Mass/Vol] 10.0 mg/dL Normal 8.5-10.2 [facility] Comment on above: Order Comment: Speci men Type: BLOOD SPECIMENOrdering Facility: [facility] Address: [address] [place] [address] Performed By: #### 2 4323-8 ####[facility] LABCLIA [id number] [place] [address] Chloride [Moles/Vol] 100 mmol/L Normal 97-105 [facility] Comment on above: Order Comment: Speci men Type: BLOOD SPECIMENOrdering Facility: [facility] Address: [address] [place] [address] Performed By: #### 2 4323-8 ####[facility] LABCLIA [id number] [place] [address] CO2 [Moles/Vol] 27 mmol/L Normal 22-30 [facility] Comment on above: Order Comment: Speci men Type: BLOOD SPECIMENOrdering Facility: [facility] Address: [address] [place] [address] Performed By: #### 2 4323-8 ####[facility] LABCLIA [id number] [place] [address] Creatinine [Mass/Vol] 1.59 mg/dL High 0.58-0.96 [facility] Comment on above: Order Comment: Speci men Type: BLOOD SPECIMENOrdering Facility: [facility] Address: [address] [place] [address] Performed By: #### 2 4323-8 ####[facility] LABCLIA [id number] [place] [address] Creatinine and Glomerular filtration rate.predicted panel (S/P/Bld) 35 mL/min/1.73m??? Low >=60 [facility] Comment on above: Order Comment: Speci men Type: BLOOD SPECIMENOrdering Facility: [facility] Address: [address] [place] [address] Result Comment: Cristal mated Glomerular Filtration Rate [...] actual GFR. Performed By: #### 2 4323-8 ####[facility] LABCLIA [id number] [place] [address] Glucose [Mass/Vol] 156 mg/dL High 74-99 [facility] Comment on above: Order Comment: Speci men Type: BLOOD SPECIMENOrdering Facility: [facility] Address: [address] [place] [address] Result Comment: The [place] Diabetes Association (ADA) provides guidance for cutoff [...] Standards of Medical Care in Diabetes 2016, [place] Diabetes Association. Diabetes Care. 2016.39(Suppl 1). Performed By: #### 2 4323-8 ####[facility] LABCLIA [id number] [place] [address] Potassium [Moles/Vol] 4.4 mmol/L Normal 3.7-5.1 [facility] Comment on above: Order Comment: Speci men Type: BLOOD SPECIMENOrdering Facility: [facility] Address: [address] [place] [address] Performed By: #### 2 4323-8 ####[facility] LABCLIA [id number] [place] [address] Protein [Mass/Vol] 7.0 g/dL Normal 6.3-8.0 [facility] Comment on above: Order Comment: Speci men Type: BLOOD SPECIMENOrdering Facility: [facility] Address: [address] [place] [address] Performed By: #### 2 4323-8 ####[facility] LABCLIA [id number] [place] [address] Sodium [Moles/Vol] 140 mmol/L Normal 136-144 [facility] Comment on above: Order Comment: Speci men Type: BLOOD SPECIMENOrdering Facility: [facility] Address: [address] [place] [address] Performed By: #### 2 4323-8 ####[facility] LABCLIA [id number] [place] [id number] Urea nitrogen [Mass/Vol] 33 mg/dL High 7-21 [facility] Comment on above: Order Comment: Speci men Type: BLOOD SPECIMENOrdering Facility: [facility] Address: [address] [place], [place] [address] Performed By: #### 2 4323-8 ####[facility] LABCLIA [id number] [place] [id number] CBC W Auto Differential pane l (Bld)on 11-26-2023 Basophils (Bld) [#/Vol] 0.07 10*3/uL <0.11 k/uL [facility] Basophils/100 WBC (Bld) 1.0 % [facility] Differential cell count method Nom (Bld) Auto [facility] Eosinophils (Bld) [#/Vol] 0.05 10*3/uL <0.46 k/uL [facility] Eosinophils/100 WBC (Bld) 0.7 % [facility] Erythrocyte distribution width (RBC) [Ratio] 16.2 % High 11.5 - 15.0 % [facility] Hematocrit (Bld) [Volume fraction] 32.4 % Low 36.0 - 46.0 % [facility] Hemoglobin (Bld) [Mass/Vol] 10.6 g/dL Low 11.5 - 15.5 g/dL [facility] Immature granulocytes (Bld) [#/Vol] 0.04 10*3/uL <0.10 k/uL [facility] Immature granulocytes/100 WBC (Bld) 0.6 % [facility] Lymphocytes (Bld) [#/Vol] 1.04 10*3/uL 1.00 - 4.00 k/uL [facility] Lymphocytes/100 WBC (Bld) 15.2 % [facility] MCH (RBC) [Entitic mass] 30.6 pg 26.0 - 34.0 pg [facility] MCHC (RBC) [Mass/Vol] 32.7 g/dL 30.5 - 36.0 g/dL [facility] MCV (RBC) [Entitic vol] 93.6 fL 80.0 - 100.0 fL [facility] Monocytes (Bld) [#/Vol] 0.47 10*3/uL <0.87 k/uL [facility] Monocytes/100 WBC (Bld) 6.9 % [facility] Neutrophils (Bld) [#/Vol] 5.18 10*3/uL 1.45 - 7.50 k/uL [facility] Neutrophils/100 WBC (Bld) 75.6 % [facility] Nucleated RBC (Bld) [#/Vol] <0.01 k/uL [facility] Nucleated RBC/100 WBC (Bld) [Ratio] 0.0 /100 WBC [facility] Platelet mean volume (Bld) [Entitic vol] 9.0 fL 9.0 - 12.7 fL [facility] Platelets (Bld) [#/Vol] 513 10*3/uL High 150 - 400 k/uL [facility] RBC (Bld) [#/Vol] 3.46 10*6/uL Low 3.90 - 5.20 m/uL [facility] WBC (Bld) [#/Vol] 6.85 10*3/uL 3.70 - 11.00 k/uL [facility] Basophils (Bld) [#/Vol] 0.07 10*3/uL Normal <0.11 [facility] Comment on above: Order Comment: Speci men Type: BLOOD SPECIMENOrdering Facility: [facility] Address: [address] [place] [address] Performed By: #### 5 7021-8 ####[facility] LABCLIA [id number] [place] [address] Basophils/100 WBC (Bld) 1.0 % Normal [facility] Comment on above: Order Comment: Speci men Type: BLOOD SPECIMENOrdering Facility: [facility] Address: [address] [place] [address] Performed By: #### 5 7021-8 ####[facility] LABCLIA [id number] [place] [address] Differential cell count method Nom (Bld) Auto Normal [facility] Comment on above: Order Comment: Speci men Type: BLOOD SPECIMENOrdering Facility: [facility] Address: [address] [place] [address] Performed By: #### 5 7021-8 ####[facility] LABCLIA [id number] [place] [address] Eosinophils (Bld) [#/Vol] 0.05 10*3/uL Normal <0.46 [facility] Comment on above: Order Comment: Speci men Type: BLOOD SPECIMENOrdering Facility: [facility] Address: [address] [place] [address] Performed By: #### 5 7021-8 ####[facility] LABCLIA [id number] [place] [address] Eosinophils/100 WBC (Bld) 0.7 % Normal [facility] Comment on above: Order Comment: Speci men Type: BLOOD SPECIMENOrdering Facility: [facility] Address: [address] [place] [address] Performed By: #### 5 7021-8 ####[facility] LABCLIA [id number] [place] [address] Erythrocyte distribution width (RBC) [Ratio] 16.2 % High 11.5-15.0 [facility] Comment on above: Order Comment: Speci men Type: BLOOD SPECIMENOrdering Facility: [facility] Address: [address] [place] [address] Performed By: #### 5 7021-8 ####[facility] LABCLIA [id number] [place] [address] Hematocrit (Bld) [Volume fraction] 32.4 % Low 36.0-46.0 [facility] Comment on above: Order Comment: Speci men Type: BLOOD SPECIMENOrdering Facility: [facility] Address: [address] [place] [address] Performed By: #### 5 7021-8 ####[facility] LABCLIA [id number] [place] [address] Hemoglobin (Bld) [Mass/Vol] 10.6 g/dL Low 11.5-15.5 [facility] Comment on above: Order Comment: Speci men Type: BLOOD SPECIMENOrdering Facility: [facility] Address: [address] [place] [address] Performed By: #### 5 7021-8 ####[facility] LABCLIA [id number] [place] [address] Immature granulocytes (Bld) [#/Vol] 0.04 10*3/uL Normal <0.10 [facility] Comment on above: Order Comment: Speci men Type: BLOOD SPECIMENOrdering Facility: [facility] Address: [address] [place] [address] Performed By: #### 5 7021-8 ####[facility] LABCLIA [id number] [place] [address] Immature granulocytes/100 WBC (Bld) 0.6 % Normal [facility] Comment on above: Order Comment: Speci men Type: BLOOD SPECIMENOrdering Facility: [facility] Address: [address] [place] [address] Performed By: #### 5 7021-8 ####[facility] LABCLIA [id number] [place] [address] Lymphocytes (Bld) [#/Vol] 1.04 10*3/uL Normal 1.00-4.00 [facility] Comment on above: Order Comment: Speci men Type: BLOOD SPECIMENOrdering Facility: [facility] Address: [address] [place] [address] Performed By: #### 5 7021-8 ####[facility] LABCLIA [id number] [place] [address] Lymphocytes/100 WBC (Bld) 15.2 % Normal [facility] Comment on above: Order Comment: Speci men Type: BLOOD SPECIMENOrdering Facility: [facility] Address: [address] [place] [address] Performed By: #### 5 7021-8 ####[facility] LABCLIA [id number] [place] [address] MCH (RBC) [Entitic mass] 30.6 pg Normal 26.0-34.0 [facility] Comment on above: Order Comment: Speci men Type: BLOOD SPECIMENOrdering Facility: [facility] Address: [address] [place] [address] Performed By: #### 5 7021-8 ####[facility] LABCLIA [id number] [place] [address] MCHC (RBC) [Mass/Vol] 32.7 g/dL Normal 30.5-36.0 [facility] Comment on above: Order Comment: Speci men Type: BLOOD SPECIMENOrdering Facility: [facility] Address: [address] [place] [address] Performed By: #### 5 7021-8 ####[facility] LABIA [id number] [place] [address] MCV (RBC) [Entitic vol] 93.6 fL Normal 80.0-100.0 [facility] Comment on above: Order Comment: Speci men Type: BLOOD SPECIMENOrdering Facility: [facility] Address: [address] [place] [address] Performed By: #### 5 7021-8 ####[facility] LABIA [id number] [place] [address] Monocytes (Bld) [#/Vol] 0.47 10*3/uL Normal <0.87 [facility] Comment on above: Order Comment: Speci men Type: BLOOD SPECIMENOrdering Facility: [facility] Address: [address] [place] [address] Performed By: #### 5 7021-8 ####[facility] LABIA [id number] [place] [address] Monocytes/100 WBC (Bld) 6.9 % Normal [facility] Comment on above: Order Comment: Speci men Type: BLOOD SPECIMENOrdering Facility: [facility] Address: [address] [place] [address] Performed By: #### 5 7021-8 ####[facility] LABCLIA [id number] [place] [address] Neutrophils (Bld) [#/Vol] 5.18 10*3/uL Normal 1.45-7.50 [facility] Comment on above: Order Comment: Speci men Type: BLOOD SPECIMENOrdering Facility: [facility] Address: [address] [place] [address] Performed By: #### 5 7021-8 ####[facility] LABCLIA [id number] [place] [address] Neutrophils/100 WBC (Bld) 75.6 % Normal [facility] Comment on above: Order Comment: Speci men Type: BLOOD SPECIMENOrdering Facility: [facility] Address: [address] [place] [address] Performed By: #### 5 7021-8 ####[facility] LABCLIA [id number] [place] [address] Nucleated RBC (Bld) [#/Vol] 10*3/uL Normal <0.01 [facility] Comment on above: Order Comment: Speci men Type: BLOOD SPECIMENOrdering Facility: [facility] Address: [address] [place] [address] Performed By: #### 5 7021-8 ####[facility] LABCLIA [id number] [place] [address] Nucleated RBC/100 WBC (Bld) [Ratio] 0.0 /100 WBC Normal [facility] Comment on above: Order Comment: Speci men Type: BLOOD SPECIMENOrdering Facility: [facility] Address: [address] [place] [address] Performed By: #### 5 7021-8 ####[facility] LABCLIA [id number] [place] [address] Platelet mean volume (Bld) [Entitic vol] 9.0 fL Normal 9.0-12.7 [facility] Comment on above: Order Comment: Speci men Type: BLOOD SPECIMENOrdering Facility: [facility] Address: [address] [place] [address] Performed By: #### 5 7021-8 ####[facility] LABCLIA [id number] [place] [address] Platelets (Bld) [#/Vol] 513 10*3/uL High 150-400 [facility] Comment on above: Order Comment: Speci men Type: BLOOD SPECIMENOrdering Facility: [facility] Address: [address] [place] [address] Performed By: #### 5 7021-8 ####[facility] LABIA [id number] [place] [address] RBC (Bld) [#/Vol] 3.46 10*6/uL Low 3.90-5.20 [facility] Comment on above: Order Comment: Speci men Type: BLOOD SPECIMENOrdering Facility: [facility] Address: [address] [place] [address] Performed By: #### 5 7021-8 ####[facility] LABIA [id number] [place] [address] WBC (Bld) [#/Vol] 6.85 10*3/uL Normal 3.70-11.00 [facility] Comment on above: Order Comment: Speci men Type: BLOOD SPECIMENOrdering Facility: [facility] Address: [address] [place] [address] Performed By: #### 5 7021-8 ####[facility] LABIA [id number] [place] [address] CNCNPATEDon 11-26-2023 CNCNPATED Normal [facility] CNOVSPon 11-26-2023 CNOVSP Normal [facility] Comprehensive metabolic 2000 panelon 11-26-2023 Albumin [Mass/Vol] 4.1 g/dL 3.9 - 4.9 g/dL [facility] ALP [Catalytic activity/Vol] 105 U/L 34 - 123 U/L [facility] ALT [Catalytic activity/Vol] 24 U/L 7 - 38 U/L [facility] Anion gap [Moles/Vol] 14 mmol/L 9 - 18 mmol/L [facility] AST [Catalytic activity/Vol] 20 U/L 13 - 35 U/L [facility] Bilirubin [Mass/Vol] 0.2 mg/dL 0.2 - 1 .3 mg/dL [facility] Calcium [Mass/Vol] 10.0 mg/dL 8.5 - 10. 2 mg/dL [facility] Chloride [Moles/Vol] 105 mmol/L 97 - 10 5 mmol/L [facility] CO2 [Moles/Vol] 28 mmol/L 22 - 30 mmol/L [facility] Creatinine [Mass/Vol] 1.35 mg/dL High 0.58 - 0.96 mg/dL [facility] Estimated Glomerular Filtration Rate 43 mL/min/1.73m Low >=60 mL/min/1.7 3m [facility] Glucose [Mass/Vol] 160 mg/dL High 74 - 99 mg/dL [facility] Potassium [Moles/Vol] 4.5 mmol/L 3.7 - 5.1 mmol/L [facility] Protein [Mass/Vol] 6.5 g/dL 6.3 - 8.0 g/dL [facility] Sodium [Moles/Vol] 147 mmol/L High 136 - 144 mmol/L [facility] Urea nitrogen [Mass/Vol] 18 mg/dL 7 - 21 mg/dL [facility] Albumin [Mass/Vol] 4.1 g/dL Normal 3.9-4.9 [facility] Comment on above: Order Comment: Speci men Type: BLOOD SPECIMENOrdering Facility: [facility] Address: [address] [place] [address] Performed By: #### 2 4323-8 ####[facility] LABCLIA [id number] [place] [address] ALP [Catalytic activity/Vol] 105 U/L Normal 34-123 [facility] Comment on above: Order Comment: Speci men Type: BLOOD SPECIMENOrdering Facility: [facility] Address: [address] [place] [address] Performed By: #### 2 4323-8 ####[facility] LABCLIA [id number] [place] [address] ALT [Catalytic activity/Vol] 24 U/L Normal 7-38 [facility] Comment on above: Order Comment: Speci men Type: BLOOD SPECIMENOrdering Facility: [facility] Address: [address] [place] [address] Performed By: #### 2 4323-8 ####[facility] LABCLIA [id number] [place] [address] Anion gap [Moles/Vol] 14 mmol/L Normal 9-18 [facility] Comment on above: Order Comment: Speci men Type: BLOOD SPECIMENOrdering Facility: [facility] Address: [address] [place] [address] Performed By: #### 2 4323-8 ####[facility] LABCLIA [id number] [place] [address] AST [Catalytic activity/Vol] 20 U/L Normal 13-35 [facility] Comment on above: Order Comment: Speci men Type: BLOOD SPECIMENOrdering Facility: [facility] Address: [address] [place] [address] Performed By: #### 2 4323-8 ####[facility] LABCLIA [id number] [place] [address] Bilirubin [Mass/Vol] 0.2 mg/dL Normal 0.2-1.3 [facility] Comment on above: Order Comment: Speci men Type: BLOOD SPECIMENOrdering Facility: [facility] Address: [address] [place] [address] Performed By: #### 2 4323-8 ####[facility] LABCLIA [id number] [place] [address] Calcium [Mass/Vol] 10.0 mg/dL Normal 8.5-10.2 [facility] Comment on above: Order Comment: Speci men Type: BLOOD SPECIMENOrdering Facility: [facility] Address: [address] [place] [address] Performed By: #### 2 4323-8 ####[facility] LABCLIA [id number] [place] [address] Chloride [Moles/Vol] 105 mmol/L Normal 97-105 [facility] Comment on above: Order Comment: Speci men Type: BLOOD SPECIMENOrdering Facility: [facility] Address: [address] [place] [address] Performed By: #### 2 4323-8 ####[facility] LABCLIA [id number] [place] [address] CO2 [Moles/Vol] 28 mmol/L Normal 22-30 [facility] Comment on above: Order Comment: Speci men Type: BLOOD SPECIMENOrdering Facility: [facility] Address: [address] [place] [address] Performed By: #### 2 4323-8 ####[facility] LABCLIA [id number] [place] [address] Creatinine [Mass/Vol] 1.35 mg/dL High 0.58-0.96 [facility] Comment on above: Order Comment: Speci men Type: BLOOD SPECIMENOrdering Facility: [facility] Address: [address] [place] [address] Performed By: #### 2 4323-8 ####[facility] LABCLIA [id number] [place] [address] Creatinine and Glomerular filtration rate.predicted panel (S/P/Bld) 43 mL/min/1.73m??? Low >=60 [facility] Comment on above: Order Comment: Speci men Type: BLOOD SPECIMENOrdering Facility: [facility] Address: [address] [place] [address] Result Comment: Cristal mated Glomerular Filtration Rate (eGFR) is calculated using the 2021 CKD-EPI creatinine equation. This equation utilizes serum creatinine, sex, and age as parameters. The creatinine assay has traceable calibration to isotope dilution-mass spectrometry. Refer to KDIGO guidelines for clinical interpretation. In patients with unstable renal function, e.g. those with acute kidney injury, the eGFR may not accurately reflect actual GFR. Performed By: #### 2 4323-8 ####[facility] LABCLIA [id number] [place] [address] Glucose [Mass/Vol] 160 mg/dL High 74-99 [facility] Comment on above: Order Comment: Speci men Type: BLOOD SPECIMENOrdering Facility: [facility] Address: [address] [place], [place] [address] Result Comment: The [place] [employer] (ADA) provides guidance for cutoff [...] Standards of Medical Care in Diabetes 2016, [place] [employer]. Diabetes Care. 2016.39(Suppl 1). Performed By: #### 2 4323-8 ####[facility] LABCLIA [id number] [place] [address] Potassium [Moles/Vol] 4.5 mmol/L Normal 3.7-5.1 [facility] Comment on above: Order Comment: Speci men Type: BLOOD SPECIMENOrdering Facility: [facility] Address: [address] [place] [address] Performed By: #### 2 4323-8 ####[facility] LABCLIA [id number] [place] [address] Protein [Mass/Vol] 6.5 g/dL Normal 6.3-8.0 [facility] Comment on above: Order Comment: Speci men Type: BLOOD SPECIMENOrdering Facility: [facility] Address: [address] [place] [address] Performed By: #### 2 4323-8 ####[facility] LABCLIA [id number] [place] [address] Sodium [Moles/Vol] 147 mmol/L High 136-144 [facility] Comment on above: Order Comment: Speci men Type: BLOOD SPECIMENOrdering Facility: [facility] Address: [address] [place], [place] [id number] Performed By: #### 2 4323-8 ####[facility] LABCLIA [id number] [place] [address] Urea nitrogen [Mass/Vol] 18 mg/dL Normal 7-21 [facility] Comment on above: Order Comment: Speci men Type: BLOOD SPECIMENOrdering Facility: [facility] Address: [address] [place] [address] Performed By: #### 2 4323-8 ####[facility] LABCLIA [id number] [place] [address] CNPNon 11-21-2023 CNPN Normal [facility] CNPNon 11-18-2023 CNPN Normal [facility] CNPNon 11-11-2023 CNPN Normal [facility] CNPNon 11-06-2023 CNPN Normal [facility] CBC W Auto Differential pane l (Bld)on 11-05-2023 Anisocytosis Ql (Bld) Present Normal [facility] Comment on above: Order Comment: Speci men Type: BLOOD SPECIMENOrdering Facility: [facility] Address: [address] [address] Performed By: #### 5 7021-8 ####[facility] LABCLIA [id number] [place], [place] [address] LABCLIA [id number] [place] [address] [place] Basophils (Bld) [#/Vol] 0.00 10*3/uL Normal <0.11 [facility] Comment on above: Order Comment: Speci men Type: BLOOD SPECIMENOrdering Facility: [facility] Address: [address] [place] [address] Performed By: #### 5 7021-8 ####[facility] LABCLIA [id number] [address] LABCLIA [id number] [place] [address] [place] Basophils/100 WBC (Bld) 0.0 % Normal [facility] Comment on above: Order Comment: Speci men Type: BLOOD SPECIMENOrdering Facility: [facility] Address: [address] [place] [address] Performed By: #### 5 7021-8 ####[facility] LABCLIA [id number] [address] LABCLIA [id number] [place] [address] [place] Differential cell count method Nom (Bld) Manual Normal [facility] Comment on above: Order Comment: Speci men Type: BLOOD SPECIMENOrdering Facility: [facility] Address: [address] [place] [address] Performed By: #### 5 7021-8 ####[facility] LABCLIA [id number] [address] LABCLIA [id number] [place] [address] [place] Eosinophils (Bld) [#/Vol] 0.06 10*3/uL Normal <0.46 [facility] Comment on above: Order Comment: Speci men Type: BLOOD SPECIMENOrdering Facility: [facility] Address: [address] [place] [address] Performed By: #### 5 7021-8 ####[facility] LABCLIA [id number] [place] [id number] LABCLIA [id number] [place] [address] [place] Eosinophils/100 WBC (Bld) 0.9 % Normal [facility] Comment on above: Order Comment: Speci men Type: BLOOD SPECIMENOrdering Facility: [facility] Address: [address] [place] [address] Performed By: #### 5 7021-8 ####[facility] LABCLIA [id number] [address] LABCLIA [id number] [place] [address] [place] Erythrocyte distribution width (RBC) [Ratio] 14.6 % Normal 11.5-15.0 [facility] Comment on above: Order Comment: Speci men Type: BLOOD SPECIMENOrdering Facility: [facility] Address: [address] [place] [address] Performed By: #### 5 7021-8 ####[facility] LABCLIA [id number] [address] LABCLIA [id number] [place] [address] [place] Giant platelets LM Ql (Bld) Occasional Normal [facility] Comment on above: Order Comment: Speci men Type: BLOOD SPECIMENOrdering Facility: [facility] Address: [address] [place] [address] Performed By: #### 5 7021-8 ####[facility] LABCLIA [id number] [address] LABCLIA [id number] [place] [address] [place] Hematocrit (Bld) [Volume fraction] 36.1 % Normal 36.0-46.0 [facility] Comment on above: Order Comment: Speci men Type: BLOOD SPECIMENOrdering Facility: [facility] Address: [address] [place] [address] Performed By: #### 5 7021-8 ####[facility] LABCLIA [id number] [address] LABCLIA [id number] [place] [address] [place] Hemoglobin (Bld) [Mass/Vol] 11.9 g/dL Normal 11.5-15.5 [facility] Comment on above: Order Comment: Speci men Type: BLOOD SPECIMENOrdering Facility: [facility] Address: [address] [place] [address] Performed By: #### 5 7021-8 ####[facility] LABCLIA [id number] [address] LABCLIA [id number] [place] [address] [place] Lymphocytes (Bld) [#/Vol] 1.82 10*3/uL Normal 1.00-4.00 [facility] Comment on above: Order Comment: Speci men Type: BLOOD SPECIMENOrdering Facility: [facility] Address: [address] [place] [address] Performed By: #### 5 7021-8 ####[facility] LABCLIA [id number] [address] LABCLIA [id number] [place] [address] [place] Lymphocytes/100 WBC (Bld) 26.1 % Normal [facility] Comment on above: Order Comment: Speci men Type: BLOOD SPECIMENOrdering Facility: [facility] Address: [address] [place] [address] Performed By: #### 5 7021-8 ####[facility] LABCLIA [id number] [place] [id number] LABCLIA [id number] [place] [address] [place] MCH (RBC) [Entitic mass] 30.7 pg Normal 26.0-34.0 [facility] Comment on above: Order Comment: Speci men Type: BLOOD SPECIMENOrdering Facility: [facility] Address: [address] [place] [address] Performed By: #### 5 7021-8 ####[facility] LABCLIA [id number] [address] LABCLIA [id number] [place] [address] [place] MCHC (RBC) [Mass/Vol] 33.0 g/dL Normal 30.5-36.0 [facility] Comment on above: Order Comment: Speci men Type: BLOOD SPECIMENOrdering Facility: [facility] Address: [address] [place] [address] Performed By: #### 5 7021-8 ####[facility] LABCLIA [id number] [address] LABCLIA [id number] [place] [address] [place] MCV (RBC) [Entitic vol] 93.3 fL Normal 80.0-100.0 [facility] Comment on above: Order Comment: Speci men Type: BLOOD SPECIMENOrdering Facility: [facility] Address: [address] [place] [address] Performed By: #### 5 7021-8 ####[facility] LABCLIA [id number] [address] LABCLIA [id number] [place] [address] [place] Metamyelocytes/100 WBC (Bld) 2.7 % Normal [facility] Comment on above: Order Comment: Speci men Type: BLOOD SPECIMENOrdering Facility: [facility] Address: [address] [place] [address] Performed By: #### 5 7021-8 ####[facility] LABCLIA [id number] [address] LABCLIA [id number] [place] [address] [place] Monocytes (Bld) [#/Vol] 0.38 10*3/uL Normal <0.87 [facility] Comment on above: Order Comment: Speci men Type: BLOOD SPECIMENOrdering Facility: [facility] Address: [address] [place] [address] Performed By: #### 5 7021-8 ####[facility] LABCLIA [id number] [address] LABCLIA [id number] [place] [address] [place] Monocytes/100 WBC (Bld) 5.4 % Normal [facility] Comment on above: Order Comment: Speci men Type: BLOOD SPECIMENOrdering Facility: [facility] Address: [address] [place] [address] Performed By: #### 5 7021-8 ####[facility] LABCLIA [id number] [address] LABCLIA [id number] [place] [address] [place] MYELO% 0.9 % Normal [facility] Comment on above: Order Comment: Speci men Type: BLOOD SPECIMENOrdering Facility: [facility] Address: [address] [place] [address] Performed By: #### 5 7021-8 ####[facility] LABCLIA [id number] [address] LABCLIA [id number] [place] [address] [place] Neutrophils (Bld) [#/Vol] 4.45 10*3/uL Normal 1.45-7.50 [facility] Comment on above: Order Comment: Speci men Type: BLOOD SPECIMENOrdering Facility: [facility] Address: [address] [place] [address] Performed By: #### 5 7021-8 ####[facility] LABCLIA [id number] [address] LABCLIA [id number] [place] [address] [place] Neutrophils/100 WBC (Bld) 64.0 % Normal [facility] Comment on above: Order Comment: Speci men Type: BLOOD SPECIMENOrdering Facility: [facility] Address: [address] [place] [address] Performed By: #### 5 7021-8 ####[facility] LABCLIA [id number] [address] LABCLIA [id number] [place] [address] [place] Nucleated RBC (Bld) [#/Vol] 10*3/uL Normal <0.01 [facility] Comment on above: Order Comment: Speci men Type: BLOOD SPECIMENOrdering Facility: [facility] Address: [address] [place] [address] Performed By: #### 5 7021-8 ####[facility] LABCLIA [id number] [address] LABCLIA [id number] [place] [address] [place] Nucleated RBC/100 WBC (Bld) [Ratio] 0.0 /100 WBC Normal [facility] Comment on above: Order Comment: Speci men Type: BLOOD SPECIMENOrdering Facility: [facility] Address: [address] [place] [address] Performed By: #### 5 7021-8 ####[facility] LABCLIA [id number] [address] LABCLIA [id number] [place] [address] [place] Ovalocytes LM Ql (Bld) Few Normal [facility] Comment on above: Order Comment: Speci men Type: BLOOD SPECIMENOrdering Facility: [facility] Address: [address] [place] [address] Performed By: #### 5 7021-8 ####[facility] LABCLIA [id number] [address] LABCLIA [id number] [place] [address] [place] Platelet mean volume (Bld) [Entitic vol] 10.3 fL Normal 9.0-12.7 [facility] Comment on above: Order Comment: Speci men Type: BLOOD SPECIMENOrdering Facility: [facility] Address: [address] [place] [address] Performed By: #### 5 7021-8 ####[facility] LABCLIA [id number] [address] LABCLIA [id number] [place] [address] [place] Platelets (Bld) [#/Vol] 382 10*3/uL Normal 150-400 [facility] Comment on above: Order Comment: Speci men Type: BLOOD SPECIMENOrdering Facility: [facility] Address: [address] [place] [address] Performed By: #### 5 7021-8 ####[facility] LABCLIA [id number] [address] LABCLIA [id number] [place] [address] [place] Platelets Estimate (Bld) [#/Vol] Adequate Normal [facility] Comment on above: Order Comment: Speci men Type: BLOOD SPECIMENOrdering Facility: [facility] Address: [address] [place] [address] Performed By: #### 5 7021-8 ####[facility] LABCLIA [id number] [address] LABCLIA [id number] [place] [address] [place] Polychromasia LM Ql (Bld) Slight Normal [facility] Comment on above: Order Comment: Speci men Type: BLOOD SPECIMENOrdering Facility: [facility] Address: [address] [place] [address] Performed By: #### 5 7021-8 ####[facility] LABCLIA [id number] [address] LABCLIA [id number] [place] [address] [place] RBC (Bld) [#/Vol] 3.87 10*6/uL Low 3.90-5.20 [facility] Comment on above: Order Comment: Speci men Type: BLOOD SPECIMENOrdering Facility: [facility] Address: [address] [place] [address] Performed By: #### 5 7021-8 ####[facility] LABCLIA [id number] [address] LABCLIA [id number] [place] [address] [place] RBC FRAGMENTS Few Abnormal None Seen [facility] Comment on above: Order Comment: Speci men Type: BLOOD SPECIMENOrdering Facility: [facility] Address: [address] [place] [address] Performed By: #### 5 7021-8 ####[facility] LABCLIA [id number] [address] [facility] LABCLIA [id number] [place] [address] [place] RED CELL MORPH Reviewed: see result s of individual morphologies Normal [facility] Comment on above: Order Comment: Speci men Type: BLOOD SPECIMENOrdering Facility: [facility] Address: [address] [place] [address] Performed By: #### 5 7021-8 ####[facility] LABCLIA [id number] [address] LABCLIA [id number] [place] [address] [place] WBC (Bld) [#/Vol] 6.96 10*3/uL Normal 3.70-11.00 [facility] Comment on above: Order Comment: Speci men Type: BLOOD SPECIMENOrdering Facility: [facility] Address: [address] [place] [address] Performed By: #### 5 7021-8 ####[facility] LABCLIA [id number] [address] LABCLIA [id number] [place] [address] [place] WBC Left Shift Ql (Bld) Present Normal [facility] Comment on above: Order Comment: Speci men Type: BLOOD SPECIMENOrdering Facility: [facility] Address: [address] [place] [address] Performed By: #### 5 7021-8 ####[facility] LABCLIA [id number] [address] LABCLIA [id number] [place] [address] [place] CNOVSPon 11-05-2023 CNOVSP Normal [facility] CNPNon 11-05-2023 CNPN Normal [facility] CT CTA CHESTon 11-05-2023 CT CTA [...] Garza DO on 11/05/2023 3:07 PM Normal [facility] Comprehensive metabolic 2000 panelon 11-05-2023 Albumin [Mass/Vol] 3.9 g/dL 3.9 - 4.9 g/dL [facility] ALP [Catalytic activity/Vol] 124 U/L High 34 - 123 U/L [facility] ALT [Catalytic activity/Vol] 29 U/L 7 - 38 U/L [facility] Anion gap [Moles/Vol] 15 mmol/L 9 - 18 mmol/L [facility] AST [Catalytic activity/Vol] 18 U/L 13 - 35 U/L [facility] Bilirubin [Mass/Vol] 0.3 mg/dL 0.2 - 1 .3 mg/dL [facility] Calcium [Mass/Vol] 9.0 mg/dL 8.5 - 10. 2 mg/dL [facility] Chloride [Moles/Vol] 105 mmol/L 97 - 10 5 mmol/L [facility] CO2 [Moles/Vol] 22 mmol/L 22 - 30 mmol/L [facility] Creatinine [Mass/Vol] 0.90 mg/dL 0.58 - 0.96 mg/dL [facility] Estimated Glomerular Filtration Rate 69 mL/min/1.73m >=60 mL/min/1.7 3m [facility] Glucose [Mass/Vol] 186 mg/dL High 74 - 99 mg/dL [facility] Potassium [Moles/Vol] 4.1 mmol/L 3.7 - 5.1 mmol/L [facility] Protein [Mass/Vol] 6.4 g/dL 6.3 - 8.0 g/dL [facility] Sodium [Moles/Vol] 142 mmol/L 136 - 144 mmol/L [facility] Urea nitrogen [Mass/Vol] 12 mg/dL 7 - 21 mg/dL [facility] Albumin [Mass/Vol] 3.9 g/dL Normal 3.9-4.9 [facility] Comment on above: Order Comment: Speci men Type: BLOOD SPECIMENOrdering Facility: [facility] Address: [address] [place] [address] Performed By: #### 2 4323-8 ####[facility] LABCLIA [id number] [place] [address] ALP [Catalytic activity/Vol] 124 U/L High 34-123 [facility] Comment on above: Order Comment: Speci men Type: BLOOD SPECIMENOrdering Facility: [facility] Address: [address] [place] [address] Performed By: #### 2 4323-8 ####[facility] LABCLIA [id number] [place] [address] ALT [Catalytic activity/Vol] 29 U/L Normal 7-38 [facility] Comment on above: Order Comment: Speci men Type: BLOOD SPECIMENOrdering Facility: [facility] Address: [address] [place] [address] Performed By: #### 2 4323-8 ####[facility] LABCLIA [id number] [place] [address] Anion gap [Moles/Vol] 15 mmol/L Normal 9-18 [facility] Comment on above: Order Comment: Speci men Type: BLOOD SPECIMENOrdering Facility: [facility] Address: [address] [place] [address] Performed By: #### 2 4323-8 ####[facility] LABCLIA [id number] [place] [address] AST [Catalytic activity/Vol] 18 U/L Normal 13-35 [facility] Comment on above: Order Comment: Speci men Type: BLOOD SPECIMENOrdering Facility: [facility] Address: [address] [place] [address] Performed By: #### 2 4323-8 ####[facility] LABCLIA [id number] [place] [address] Bilirubin [Mass/Vol] 0.3 mg/dL Normal 0.2-1.3 [facility] Comment on above: Order Comment: Speci men Type: BLOOD SPECIMENOrdering Facility: [facility] Address: [address] [place] [address] Performed By: #### 2 4323-8 ####[facility] LABCLIA [id number] [place] [address] Calcium [Mass/Vol] 9.0 mg/dL Normal 8.5-10.2 [facility] Comment on above: Order Comment: Speci men Type: BLOOD SPECIMENOrdering Facility: [facility] Address: [address] [place] [address] Performed By: #### 2 4323-8 ####[facility] LABCLIA [id number] [place] [address] Chloride [Moles/Vol] 105 mmol/L Normal 97-105 [facility] Comment on above: Order Comment: Speci men Type: BLOOD SPECIMENOrdering Facility: [facility] Address: [address] [place] [address] Performed By: #### 2 4323-8 ####[facility] LABCLIA [id number] [place] [address] CO2 [Moles/Vol] 22 mmol/L Normal 22-30 [facility] Comment on above: Order Comment: Speci men Type: BLOOD SPECIMENOrdering Facility: [facility] Address: [address] [place] [address] Performed By: #### 2 4323-8 ####[facility] LABIA [id number] [place] [address] Creatinine [Mass/Vol] 0.90 mg/dL Normal 0.58-0.96 [facility] Comment on above: Order Comment: Speci men Type: BLOOD SPECIMENOrdering Facility: [facility] Address: [address] [place] [address] Performed By: #### 2 4323-8 ####[facility] LABIA [id number] [place] [address] Creatinine and Glomerular filtration rate.predicted panel (S/P/Bld) 69 mL/min/1.73m??? Normal >=60 [facility] Comment on above: Order Comment: Speci men Type: BLOOD SPECIMENOrdering Facility: [facility] Address: [address] [place] [address] Result Comment: Cristal mated Glomerular Filtration Rate [...] actual GFR. Performed By: #### 2 4323-8 ####[facility] LABIA [id number] [place] [address] Glucose [Mass/Vol] 186 mg/dL High 74-99 [facility] Comment on above: Order Comment: Speci men Type: BLOOD SPECIMENOrdering Facility: [facility] Address: [address] [place] [address] Result Comment: The [place] [employer] (ADA) provides guidance for cutoff [...] Standards of Medical Care in Diabetes 2016, [place] [employer]. Diabetes Care. 2016.39(Suppl 1). Performed By: #### 2 4323-8 ####[facility] LABCLIA [id number] [place] [address] Potassium [Moles/Vol] 4.1 mmol/L Normal 3.7-5.1 [facility] Comment on above: Order Comment: Speci men Type: BLOOD SPECIMENOrdering Facility: [facility] Address: [address] [place] [address] Performed By: #### 2 4323-8 ####[facility] LABCLIA [id number] [place] [address] Protein [Mass/Vol] 6.4 g/dL Normal 6.3-8.0 [facility] Comment on above: Order Comment: Speci men Type: BLOOD SPECIMENOrdering Facility: [facility] Address: [address] [place] [address] Performed By: #### 2 4323-8 ####[facility] LABCLIA [id number] [place] [address] Sodium [Moles/Vol] 142 mmol/L Normal 136-144 [facility] Comment on above: Order Comment: Speci men Type: BLOOD SPECIMENOrdering Facility: [facility] Address: [address] [place] [address] Performed By: #### 2 4323-8 ####[facility] LABCLIA [id number] [place] [address] Urea nitrogen [Mass/Vol] 12 mg/dL Normal 7-21 [facility] Comment on above: Order Comment: Speci men Type: BLOOD SPECIMENOrdering Facility: [facility]: [address] [address] Performed By: #### 2 4323-8 ####[facility] LABCLIA [id number] [place] [address] CNPNon 10-25-2023 CNPN Normal [facility] CBC W Auto Differential pane l (Bld)on 10-22-2023 Basophils (Bld) [#/Vol] 0.04 10*3/uL <0.11 k/uL [facility] Basophils/100 WBC (Bld) 0.3 % [facility] Differential cell count method Nom (Bld) Auto [facility] Eosinophils (Bld) [#/Vol] 0.19 10*3/uL <0.46 k/uL [facility] Eosinophils/100 WBC (Bld) 1.6 % [facility] Erythrocyte distribution width (RBC) [Ratio] 14.3 % 11.5 - 15.0 % [facility] Hematocrit (Bld) [Volume fraction] 42.8 % 36.0 - 46.0 % [facility] Hemoglobin (Bld) [Mass/Vol] 14.0 g/dL 11.5 - 15.5 g/dL [facility] Immature granulocytes (Bld) [#/Vol] 0.05 10*3/uL <0.10 k/uL [facility] Immature granulocytes/100 WBC (Bld) 0.4 % [facility] Lymphocytes (Bld) [#/Vol] 2.04 10*3/uL 1.00 - 4.00 k/uL [facility] Lymphocytes/100 WBC (Bld) 16.8 % [facility] MCH (RBC) [Entitic mass] 30.8 pg 26.0 - 34.0 pg [facility] MCHC (RBC) [Mass/Vol] 32.7 g/dL 30.5 - 36.0 g/dL [facility] MCV (RBC) [Entitic vol] 94.1 fL 80.0 - 100.0 fL [facility] Monocytes (Bld) [#/Vol] 0.54 10*3/uL <0.87 k/uL [facility] Monocytes/100 WBC (Bld) 4.4 % [facility] Neutrophils (Bld) [#/Vol] 9.30 10*3/uL High 1.45 - 7.50 k/uL [facility] Neutrophils/100 WBC (Bld) 76.5 % [facility] Nucleated RBC (Bld) [#/Vol] <0.01 k/uL [facility] Nucleated RBC/100 WBC (Bld) [Ratio] 0.0 /100 WBC [facility] Platelet mean volume (Bld) [Entitic vol] 9.7 fL 9.0 - 12.7 fL [facility] Platelets (Bld) [#/Vol] 300 10*3/uL 150 - 400 k/uL [facility] RBC (Bld) [#/Vol] 4.55 10*6/uL 3.90 - 5.20 m/uL [facility] WBC (Bld) [#/Vol] 12.16 10*3/uL High 3.70 - 11.00 k/uL [facility] Basophils (Bld) [#/Vol] 0.04 10*3/uL Normal <0.11 [facility] Comment on above: Order Comment: Speci men Type: BLOOD SPECIMENOrdering Facility: [facility] Address: [address] [place] [address] Performed By: #### [id number] 7021-8 ####[facility] LABCLIA [id number] [place] [address] Basophils/100 WBC (Bld) 0.3 % Normal [facility] Comment on above: Order Comment: Speci men Type: BLOOD SPECIMENOrdering Facility: [facility] Address: [address] [place] [address] Performed By: #### [id number] 7021-8 ####[facility] LABCLIA [id number] [place] [address] Differential cell count method Nom (Bld) Auto Normal [facility] Comment on above: Order Comment: Speci men Type: BLOOD SPECIMENOrdering Facility: [facility] Address: [address] [place], [place] [address] Performed By: #### 5 7021-8 ####[facility] LABCLIA [id number] [place] [address] Eosinophils (Bld) [#/Vol] 0.19 10*3/uL Normal <0.46 [facility] Comment on above: Order Comment: Speci men Type: BLOOD SPECIMENOrdering Facility: [facility] Address: [address] [place] [address] Performed By: #### 5 7021-8 ####[facility] LABCLIA [id number] [place] [address] Eosinophils/100 WBC (Bld) 1.6 % Normal [facility] Comment on above: Order Comment: Speci men Type: BLOOD SPECIMENOrdering Facility: [facility] Address: [address] [place] [address] Performed By: #### 5 7021-8 ####[facility] LABCLIA [id number] [place] [address] Erythrocyte distribution width (RBC) [Ratio] 14.3 % Normal 11.5-15.0 [facility] Comment on above: Order Comment: Speci men Type: BLOOD SPECIMENOrdering Facility: [facility] Address: [address] [place] [address] Performed By: #### 5 7021-8 ####[facility] LABCLIA [id number] [place] [address] Hematocrit (Bld) [Volume fraction] 42.8 % Normal 36.0-46.0 [facility] Comment on above: Order Comment: Speci men Type: BLOOD SPECIMENOrdering Facility: [facility] Address: [address] [place] [address] Performed By: #### 5 7021-8 ####[facility] LABCLIA [id number] [place] [address] Hemoglobin (Bld) [Mass/Vol] 14.0 g/dL Normal 11.5-15.5 [facility] Comment on above: Order Comment: Speci men Type: BLOOD SPECIMENOrdering Facility: [facility] Address: [address] [place] [address] Performed By: #### 5 7021-8 ####[facility] LABCLIA [id number] [place] [address] Immature granulocytes (Bld) [#/Vol] 0.05 10*3/uL Normal <0.10 [facility] Comment on above: Order Comment: Speci men Type: BLOOD SPECIMENOrdering Facility: [facility] Address: [address] [place] [address] Performed By: #### 5 7021-8 ####[facility] LABCLIA [id number] [place] [address] Immature granulocytes/100 WBC (Bld) 0.4 % Normal [facility] Comment on above: Order Comment: Speci men Type: BLOOD SPECIMENOrdering Facility: [facility] Address: [address] [place] [address] Performed By: #### 5 7021-8 ####[facility] LABCLIA [id number] [place] [address] Lymphocytes (Bld) [#/Vol] 2.04 10*3/uL Normal 1.00-4.00 [facility] Comment on above: Order Comment: Speci men Type: BLOOD SPECIMENOrdering Facility: [facility] Address: [address] [place] [address] Performed By: #### 5 7021-8 ####[facility] LABCLIA [id number] [place] [address] Lymphocytes/100 WBC (Bld) 16.8 % Normal [facility] Comment on above: Order Comment: Speci men Type: BLOOD SPECIMENOrdering Facility: [facility] Address: [address] [place] [address] Performed By: #### 5 7021-8 ####[facility] LABCLIA [id number] [place] [address] MCH (RBC) [Entitic mass] 30.8 pg Normal 26.0-34.0 [facility] Comment on above: Order Comment: Speci men Type: BLOOD SPECIMENOrdering Facility: [facility] Address: [address] [place] [address] Performed By: #### 5 7021-8 ####[facility] LABIA [id number] [place] [address] MCHC (RBC) [Mass/Vol] 32.7 g/dL Normal 30.5-36.0 [facility] Comment on above: Order Comment: Speci men Type: BLOOD SPECIMENOrdering Facility: [facility] Address: [address] [place] [address] Performed By: #### 5 7021-8 ####[facility] LABIA [id number] [place] [address] MCV (RBC) [Entitic vol] 94.1 fL Normal 80.0-100.0 [facility] Comment on above: Order Comment: Speci men Type: BLOOD SPECIMENOrdering Facility: [facility] Address: [address] [place] [address] Performed By: #### 5 7021-8 ####[facility] LABIA [id number] [place] [address] Monocytes (Bld) [#/Vol] 0.54 10*3/uL Normal <0.87 [facility] Comment on above: Order Comment: Speci men Type: BLOOD SPECIMENOrdering Facility: [facility] Address: [address] [place] [address] Performed By: #### 5 7021-8 ####[facility] LABIA [id number] [place] [address] Monocytes/100 WBC (Bld) 4.4 % Normal [facility] Comment on above: Order Comment: Speci men Type: BLOOD SPECIMENOrdering Facility: [facility] Address: [address] [place] [address] Performed By: #### 5 7021-8 ####[facility] LABCLIA [id number] [place] [address] Neutrophils (Bld) [#/Vol] 9.30 10*3/uL High 1.45-7.50 [facility] Comment on above: Order Comment: Speci men Type: BLOOD SPECIMENOrdering Facility: [facility] Address: [address] [place] [address] Performed By: #### 5 7021-8 ####[facility] LABCLIA [id number] [place] [address] Neutrophils/100 WBC (Bld) 76.5 % Normal [facility] Comment on above: Order Comment: Speci men Type: BLOOD SPECIMENOrdering Facility: [facility] Address: [address] [place] [address] Performed By: #### 5 7021-8 ####[facility] LABCLIA [id number] [place] [address] Nucleated RBC (Bld) [#/Vol] 10*3/uL Normal <0.01 [facility] Comment on above: Order Comment: Speci men Type: BLOOD SPECIMENOrdering Facility: [facility] Address: [address] [place] [address] Performed By: #### 5 7021-8 ####[facility] LABCLIA [id number] [place] [address] Nucleated RBC/100 WBC (Bld) [Ratio] 0.0 /100 WBC Normal [facility] Comment on above: Order Comment: Speci men Type: BLOOD SPECIMENOrdering Facility: [facility] Address: [address] [place] [address] Performed By: #### 5 7021-8 ####[facility] LABCLIA [id number] [place] [address] Platelet mean volume (Bld) [Entitic vol] 9.7 fL Normal 9.0-12.7 [facility] Comment on above: Order Comment: Speci men Type: BLOOD SPECIMENOrdering Facility: [facility] Address: [address] [place] [address] Performed By: #### 5 7021-8 ####[facility] LABIA [id number] [place] [address] Platelets (Bld) [#/Vol] 300 10*3/uL Normal 150-400 [facility] Comment on above: Order Comment: Speci men Type: BLOOD SPECIMENOrdering Facility: [facility] Address: [address] [place] [address] Performed By: #### 5 7021-8 ####[facility] [id number] [place] [address] RBC (Bld) [#/Vol] 4.55 10*6/uL Normal 3.90-5.20 [facility] Comment on above: Order Comment: Speci men Type: BLOOD SPECIMENOrdering Facility: [facility] Address: [address] [place] [address] Performed By: #### 5 7021-8 ####[facility] LABIA [id number] [place] [address] WBC (Bld) [#/Vol] 12.16 10*3/uL High 3.70-11.00 [facility] Comment on above: Order Comment: Speci men Type: BLOOD SPECIMENOrdering Facility: [facility] Address: [address] [place] [address] Performed By: #### 5 7021-8 ####[facility] LABIA [id number] [place] [address] CNCNPATEDon 10-22-2023 CNCNPATED Normal [facility] CNOVSPon 10-22-2023 CNOVSP Normal [facility] CNPNon 10-22-2023 CNPN Normal [facility] Comprehensive metabolic 2000 panelon 10-22-2023 Albumin [Mass/Vol] 4.1 g/dL 3.9 - 4.9 g/dL [facility] ALP [Catalytic activity/Vol] 117 U/L 34 - 123 U/L [facility] ALT [Catalytic activity/Vol] 32 U/L 7 - 38 U/L [facility] Anion gap [Moles/Vol] 11 mmol/L 9 - 18 mmol/L [facility] AST [Catalytic activity/Vol] 17 U/L 13 - 35 U/L [facility] Bilirubin [Mass/Vol] 0.8 mg/dL 0.2 - 1 .3 mg/dL [facility] Calcium [Mass/Vol] 9.5 mg/dL 8.5 - 10. 2 mg/dL [facility] Chloride [Moles/Vol] 108 mmol/L High 97 - 10 5 mmol/L [facility] CO2 [Moles/Vol] 27 mmol/L 22 - 30 mmol/L [facility] Creatinine [Mass/Vol] 1.01 mg/dL High 0.58 - 0.96 mg/dL [facility] Estimated Glomerular Filtration Rate 61 mL/min/1.73m >=60 mL/min/1.7 3m [facility] Glucose [Mass/Vol] 130 mg/dL High 74 - 99 mg/dL [facility] Potassium [Moles/Vol] 4.2 mmol/L 3.7 - 5.1 mmol/L [facility] Protein [Mass/Vol] 6.4 g/dL 6.3 - 8.0 g/dL [facility] Sodium [Moles/Vol] 146 mmol/L High 136 - 144 mmol/L [facility] Urea nitrogen [Mass/Vol] 21 mg/dL 7 - 21 mg/dL [facility] Albumin [Mass/Vol] 4.1 g/dL Normal 3.9-4.9 [facility] Comment on above: Order Comment: Speci men Type: BLOOD SPECIMENOrdering Facility: [facility] Address: [address] [place] [address] Performed By: #### 2 4323-8 ####[facility] LABCLIA [id number] [place] [address] ALP [Catalytic activity/Vol] 117 U/L Normal 34-123 [facility] Comment on above: Order Comment: Speci men Type: BLOOD SPECIMENOrdering Facility: [facility] Address: [address] [place] [address] Performed By: #### 2 4323-8 ####[facility] LABCLIA [id number] [place] [address] ALT [Catalytic activity/Vol] 32 U/L Normal 7-38 [facility] Comment on above: Order Comment: Speci men Type: BLOOD SPECIMENOrdering Facility: [facility] Address: [address] [place] [address] Performed By: #### 2 4323-8 ####[facility] LABCLIA [id number] [place] [address] Anion gap [Moles/Vol] 11 mmol/L Normal 9-18 [facility] Comment on above: Order Comment: Speci men Type: BLOOD SPECIMENOrdering Facility: [facility] Address: [address] [place] [address] Performed By: #### 2 4323-8 ####[facility] LABCLIA [id number] [place] [address] AST [Catalytic activity/Vol] 17 U/L Normal 13-35 [facility] Comment on above: Order Comment: Speci men Type: BLOOD SPECIMENOrdering Facility: [facility] Address: [address] [place] [address] Performed By: #### 2 4323-8 ####[facility] LABCLIA [id number] [place] [address] Bilirubin [Mass/Vol] 0.8 mg/dL Normal 0.2-1.3 [facility] Comment on above: Order Comment: Speci men Type: BLOOD SPECIMENOrdering Facility: [facility] Address: [address] [place] [address] Performed By: #### 2 4323-8 ####[facility] LABCLIA [id number] [place] [address] Calcium [Mass/Vol] 9.5 mg/dL Normal 8.5-10.2 [facility] Comment on above: Order Comment: Speci men Type: BLOOD SPECIMENOrdering Facility: [facility] Address: [address] [place] [address] Performed By: #### 2 4323-8 ####[facility] LABCLIA [id number] [place] [address] Chloride [Moles/Vol] 108 mmol/L High 97-105 [facility] Comment on above: Order Comment: Speci men Type: BLOOD SPECIMENOrdering Facility: [facility] Address: [address] [place] [address] Performed By: #### 2 4323-8 ####[facility] LABCLIA [id number] [place] [address] CO2 [Moles/Vol] 27 mmol/L Normal 22-30 [facility] Comment on above: Order Comment: Speci men Type: BLOOD SPECIMENOrdering Facility: [facility] Address: [address] [place] [address] Performed By: #### 2 4323-8 ####[facility] LABCLIA [id number] [place] [address] Creatinine [Mass/Vol] 1.01 mg/dL High 0.58-0.96 [facility] Comment on above: Order Comment: Speci men Type: BLOOD SPECIMENOrdering Facility: [facility] Address: [address] [place] [address] Performed By: #### 2 4323-8 ####[facility] LABCLIA [id number] [place] [address] Creatinine and Glomerular filtration rate.predicted panel (S/P/Bld) 61 mL/min/1.73m??? Normal >=60 [facility] Comment on above: Order Comment: Speci men Type: BLOOD SPECIMENOrdering Facility: [facility] Address: [address] [place] [address] Result Comment: Cristal mated Glomerular Filtration Rate [...] actual GFR. Performed By: #### 2 4323-8 ####[facility] LABCLIA [id number] [place] [address] Glucose [Mass/Vol] 130 mg/dL High 74-99 [facility] Comment on above: Order Comment: Speci men Type: BLOOD SPECIMENOrdering Facility: [facility] Address: [address] [place] [id number] Result Comment: The [place] Diabetes Association (ADA) provides guidance for cutoff [...] Standards of Medical Care in Diabetes 2016, [place] [employer]. Diabetes Care. 2016.39(Suppl 1). Performed By: #### 2 4323-8 ####[facility] LABCLIA [id number] [place] [address] Potassium [Moles/Vol] 4.2 mmol/L Normal 3.7-5.1 [facility] Comment on above: Order Comment: Joeli kalyn Type: BLOOD SPECIMENOrdering Facility: [facility] Address: [address] [place] [address] Performed By: #### 2 4323-8 ####[facility] LABCLIA [id number] [place] [address] Protein [Mass/Vol] 6.4 g/dL Normal 6.3-8.0 [facility] Comment on above: Order Comment: Speci men Type: BLOOD SPECIMENOrdering Facility: [facility] Address: [address] [place] [address] Performed By: #### 2 4323-8 ####[facility] LABCLIA [id number] [place] [address] Sodium [Moles/Vol] 146 mmol/L High 136-144 [facility] Comment on above: Order Comment: Speci men Type: BLOOD SPECIMENOrdering Facility: [facility] Address: [address] [place] [address] Performed By: #### 2 4323-8 ####[facility] LABCLIA [id number] [place] [address] Urea nitrogen [Mass/Vol] 21 mg/dL Normal 7-21 [facility] Comment on above: Order Comment: Speci men Type: BLOOD SPECIMENOrdering Facility: [facility] Address: [address] [place] [address] Performed By: #### 2 4323-8 ####[facility] LABCLIA [id number] [place] [address] CNPNon 10-14-2023 CNPN Normal [facility] CNPNon 10-11-2023 CNPN Normal [facility] CNPNon 10-10-2023 CNPN Normal [facility] CNPNon 10-07-2023 CNPN Normal [facility] ANES POSTPROC EVALon 024 ANES POSTPROC EVAL HNO ID: [id number] Author: VIRGILIO [place] MD Service: Anesthesiology Author [...] September 27, 2023 TIME: 2:47 PM CSN: [id number] [facility] ANES PRE-OPon 09-27-2023 ANES PRE-OP HNO ID: [id number] Author: VIRGILIO [place] MD Service: Anesthesiology Author [...] PULMONARY (+) COPD (chronic obstructive pulmonary disease) ([facility]) (+) [place] (dyspnea on exertion) Other (+) Arthritis of both knees (+) RA (rheumatoid arthritis) ([facility]) I - PHYSICAL EVALUATION AIRWAY Patient intubated: [...] and consent discussed: yes. Patient / Responsible [employer] Party agrees to proceed: yes Patient / [...] September 27, 2023 TIME: 12:47 PM CSN: [id number] [facility] IR FLU GD ALE CVA PLACEon IR FLU GD ALE CVA PLACE * * *Final Report* * * DATE OF EXAM: Sep 27 2023 2:31PM [facility] 7444 - IR FLU GD ALE CVA [...] verified and all sponge were accounted. The [facility] Central Line Insertion checklist, attached to the Central Line-Associated Bloodstream Infection Prevention Policy, was utilized during this procedure. RESULT: Ultrasound demonstrated patency of the chosen vein. Tip of the catheter terminated in the distal superior vena cava-right atrial junction. ACCESS: Right internal jugular vein INDWELLING DEVICE: 8 F PowerPort by [facility] (distal valved) silicone catheter with pressure injectable [...] Specimens: None ATTENDING RADIOLOGIST: Hui Villafuerte M.D. THIRD RIGGER: None The procedure was performed by the: attending radiologist, without an client account assistant. The attending radiologist performed the following procedural activities: Entire procedure IMPRESSION: SUCCESSFUL PLACEMENT OF PORTED CATHETER VIA RIGHT IJV. THE CATHETER IS READY FOR USE. PLEASE NOTE: This catheter requires normal saline flushes. Recommend flush interval of 90 days when not being used. Home Visitor: BEA Transcribe Date/Time: Sep 27 2023 2:34P Dictated b (more content not included)... Normal [facility] IR PORTOCATH PLACEMENTon IR PORTOCATH PLACEMENT * * *Final Report* * * DATE OF EXAM: Sep 27 2023 2:31PM [facility] 8966 - IR PORTOCATH PLACEMENT / [...] verified and all sponge were accounted. The [facility] Central Line Insertion checklist, attached to the Central Line-Associated Bloodstream Infection Prevention Policy, was utilized during this procedure. RESULT: Ultrasound demonstrated patency of the chosen vein. Tip of the catheter terminated in the distal superior vena cava-right atrial junction. ACCESS: Right internal jugular vein INDWELLING DEVICE: 8 F PowerPort by [facility] (distal valved) silicone catheter with pressure injectable [...] Specimens: None ATTENDING RADIOLOGIST: Hui Villafuerte M.D. THIRD RIGGER: None The procedure was performed by the: attending radiologist, without an client account assistant. The attending radiologist performed the following procedural activities: Entire procedure IMPRESSION: SUCCESSFUL PLACEMENT OF PORTED CATHETER VIA RIGHT IJV. THE CATHETER IS READY FOR USE. PLEASE NOTE: This catheter requires normal saline flushes. Recommend flush interval of 90 days when not being used. Home Visitor: BEA Transcribe Date/Time: Sep 27 2023 2:34P Dictated by (more content not included)... [facility] IR US VASCULAR ACCESS GUIDEo n 09-27-2023 IR US VASCULAR ACCESS GUIDE * * *Final Report* * * DATE OF EXAM: Sep 27 2023 2:31PM [facility] 7765 - IR US VASCULAR ACCESS [...] verified and all sponge were accounted. The [facility] Central Line Insertion checklist, attached to the Central Line-Associated Bloodstream Infection Prevention Policy, was utilized during this procedure. RESULT: Ultrasound demonstrated patency of the chosen vein. Tip of the catheter terminated in the distal superior vena cava-right atrial junction. ACCESS: Right internal jugular vein INDWELLING DEVICE: 8 F PowerPort by [facility] (distal valved) silicone catheter with [...] Specimens: None ATTENDING RADIOLOGIST: Hui Villafuerte M.D. THIRD RIGGER: None The procedure was performed by the: attending radiologist, without an client account assistant. The attending radiologist performed the following procedural activities: Entire procedure IMPRESSION: SUCCESSFUL PLACEMENT OF PORTED CATHETER VIA RIGHT IJV. THE CATHETER IS READY FOR USE. PLEASE NOTE: This catheter requires normal saline flushes. Recommend flush interval of 90 days when not being used. Home Visitor: BEA Transcribe Date/Time: Sep 27 2023 2:34P Dictat (more content not included)... Normal [facility] HISTORY PHYSICALon HISTORY PHYSICAL Normal Clevelan krista [facility] CNNURSEon 09-24-2023 CNNURSE Normal [facility] CNPNon 09-23-2023 CNPN Telephone (AVXRPR) -- MINAL CAPUTO ([id number]) 1955 F Date Time Provider Department 09/23/23 MASTER CROWLEY AVXRFRED During your visit today, we recorded the following information about you: Master Crowley RN 09/23/2023 12:22 PM Signed You are scheduled for a Mediport Placement, On 09/27/2023. You are to arrive at 12:00 pm and Report to [facility]: Enter through [facility] entrance. Proceed to [...] Labs: Lab-work needs to be drawn? No. Lead Injection Mold Technician/Transportation: How will you be arriving for your procedure? Private car. You will need a responsible adult to accompany you to and from the procedure. Your tanker truck driver is required to stay with you until you are taken into the procedure room. If you have any questions please call [phone] Allergies As of Date: 09/23/2023 Noted Allergy [...] Encounter Status:Closed by MASTER CROWLEY on 09/23/23 [facility] CNPN Normal [facility] CBC W Auto Differential pane l (Bld)on 09-20-2023 Basophils (Bld) [#/Vol] 0.04 10*3/uL Normal <0.11 [facility] Comment on above: Order Comment: Alison mccain Type: BLOOD SPECIMEN [facility] Address: [address] [place] [address] Performed By: #### 5 7021-8 #### [facility] CLIA [id number] [address] [place] [address] [place] Basophils/100 WBC (Bld) 0.5 % Normal [facility] Comment on above: Order Comment: Alison mccain Type: BLOOD SPECIMEN [facility] Address: [address] [place] [address] Performed By: #### 5 7021-8 #### [facility] CLIA [id number] [address] [place] [address] [place] Differential cell count method Nom (Bld) Auto Normal [facility] Comment on above: Order Comment: Speci men Type: BLOOD SPECIMEN [facility] Address: [address] [place] [address] Performed By: #### 5 7021-8 #### [facility] CLIA [id number] [address] [place] [address] [place] Eosinophils (Bld) [#/Vol] 0.28 10*3/uL Normal <0.46 [facility] Comment on above: Order Comment: Speci men Type: BLOOD SPECIMEN [facility] Address: [address] [place] [address] Performed By: #### 5 7021-8 #### [facility] CLIA [id number] [address] [place] [address] [place] Eosinophils/100 WBC (Bld) 3.7 % Normal [facility] Comment on above: Order Comment: Speci men Type: BLOOD SPECIMEN [facility] Address: [address] [place] [address] Performed By: #### 5 7021-8 #### [facility] CLIA [id number] [address] [place] [address] [place] Erythrocyte distribution width (RBC) [Ratio] 14.1 % Normal 11.5-15.0 [facility] Comment on above: Order Comment: Speci men Type: BLOOD SPECIMEN [facility] Address: [address] [place] [address] Performed By: #### 5 7021-8 #### [facility] CLIA [id number] [address] [place] [address] [place] Hematocrit (Bld) [Volume fraction] 46.1 % High 36.0-46.0 [facility] Comment on above: Order Comment: Speci men Type: BLOOD SPECIMEN [facility] Address: [address] [place] [address] Performed By: #### 5 7021-8 #### [facility] CLIA [id number] [address] [address] [place] Hemoglobin (Bld) [Mass/Vol] 14.8 g/dL Normal 11.5-15.5 [facility] Comment on above: Order Comment: Speci men Type: BLOOD SPECIMEN Ordering Facility: [facility] Address: [address] [place] [address] Performed By: #### 5 7021-8 #### [facility] CLIA [id number] [address] [place] [address] [place] Immature granulocytes (Bld) [#/Vol] 0.04 10*3/uL Normal <0.10 [facility] Comment on above: Order Comment: Speci men Type: BLOOD SPECIMEN Ordering Facility: [facility] Address: [address] [place] [address] Performed By: #### 5 7021-8 #### [facility] CLIA [id number] [address] [place] [address] [place] Immature granulocytes/100 WBC (Bld) 0.5 % Normal [facility] Comment on above: Order Comment: Speci men Type: BLOOD SPECIMEN Ordering Facility: [facility] Address: [address] [place] [address] Performed By: #### 5 7021-8 #### [facility] CLIA [id number] [address] [place] [address] [place] Lymphocytes (Bld) [#/Vol] 1.63 10*3/uL Normal 1.00-4.00 [facility] Comment on above: Order Comment: Speci men Type: BLOOD SPECIMEN Ordering Facility: [facility] Address: [address] [place] [address] Performed By: #### 5 7021-8 #### [facility] CLIA [id number] [address] [place] [address] [place] Lymphocytes/100 WBC (Bld) 21.4 % Normal [facility] Comment on above: Order Comment: Speci men Type: BLOOD SPECIMEN Ordering Facility: [facility] Address: [address] [place] [address] Performed By: #### 5 7021-8 #### [facility] CLIA [id number] [address] [place] [address] [place] MCH (RBC) [Entitic mass] 31.1 pg Normal 26.0-34.0 [facility] Comment on above: Order Comment: Speci men Type: BLOOD SPECIMEN Ordering Facility: [facility] Address: [address] [place] [address] Performed By: #### 5 7021-8 #### [facility] CLIA [id number] [address] [place] [address] [place] MCHC (RBC) [Mass/Vol] 32.1 g/dL Normal 30.5-36.0 [facility] Comment on above: Order Comment: Speci men Type: BLOOD SPECIMEN Ordering Facility: [facility] Address: [address] [place] [address] Performed By: #### 5 7021-8 #### [facility] IA [id number] [address] [place] [address] [place] MCV (RBC) [Entitic vol] 96.8 fL Normal 80.0-100.0 [facility] Comment on above: Order Comment: Speci men Type: BLOOD SPECIMEN Ordering Facility: [facility] Address: [address] [place] [address] Performed By: #### 5 7021-8 #### [facility] IA [id number] [address] [place] [address] [place] Monocytes (Bld) [#/Vol] 0.52 10*3/uL Normal <0.87 [facility] Comment on above: Order Comment: Speci men Type: BLOOD SPECIMEN Ordering Facility: [facility] Address: [address] [place] [address] Performed By: #### 5 7021-8 #### [facility] CLIA [id number] [address] [place] [address] [place] Monocytes/100 WBC (Bld) 6.8 % Normal [facility] Comment on above: Order Comment: Speci men Type: BLOOD SPECIMEN Ordering Facility: [facility] Address: [address] [place] [address] Performed By: #### 5 7021-8 #### [facility] CLIA [id number] [address] [place] [address] [place] Neutrophils (Bld) [#/Vol] 5.11 10*3/uL Normal 1.45-7.50 [facility] Comment on above: Order Comment: Speci men Type: BLOOD SPECIMEN Ordering Facility: [facility] Address: [address] [place] [address] Performed By: #### 5 7021-8 #### [facility] CLIA [id number] [address] [place] [address] [place] Neutrophils/100 WBC (Bld) 67.1 % Normal [facility] Comment on above: Order Comment: Speci men Type: BLOOD SPECIMEN Ordering Facility: [facility] Address: [address] [place] [address] Performed By: #### 5 7021-8 #### [facility] CLIA [id number] [address] [place] [address] [place] Nucleated RBC (Bld) [#/Vol] 10*3/uL Normal <0.01 [facility] Comment on above: Order Comment: Speci men Type: BLOOD SPECIMEN Ordering Facility: [facility] Address: [address] [place] [address] Performed By: #### 5 7021-8 #### [facility] CLIA [id number] [address] [place] [address] [place] Nucleated RBC/100 WBC (Bld) [Ratio] 0.0 /100 WBC Normal [facility] Comment on above: Order Comment: Speci men Type: BLOOD SPECIMEN Ordering Facility: [facility] Address: [address] [place] [address] Performed By: #### 5 7021-8 #### [facility] CLIA [id number] [address] [place] [address] [place] Platelet mean volume (Bld) [Entitic vol] 10.2 fL Normal 9.0-12.7 [facility] Comment on above: Order Comment: Speci men Type: BLOOD SPECIMEN Ordering Facility: [facility] Address: [address] [place] [address] Performed By: #### 5 7021-8 #### [facility] CLIA [id number] [address] [place] [address] [place] Platelets (Bld) [#/Vol] 304 10*3/uL Normal 150-400 [facility] Comment on above: Order Comment: Speci men Type: BLOOD SPECIMEN Ordering Facility: [facility] Address: [address] [place] [address] Performed By: #### 5 7021-8 #### [facility] IA [id number] [address] [place] [address] [place] RBC (Bld) [#/Vol] 4.76 10*6/uL Normal 3.90-5.20 [facility] Comment on above: Order Comment: Speci men Type: BLOOD SPECIMEN Ordering Facility: [facility] Address: [address] [place] [address] Performed By: #### 5 7021-8 #### [facility] IA [id number] [address] [place] [address] [place] WBC (Bld) [#/Vol] 7.62 10*3/uL Normal 3.70-11.00 [facility] Comment on above: Order Comment: Speci men Type: BLOOD SPECIMEN Ordering Facility: [facility] Address: [address] [place] [address] Performed By: #### 5 7021-8 #### [facility] IA [id number] [address] [place] [address] OF [place]RIAN CNOVon 09-20-2023 CNOV Office Visit ([facility] ) -- MINAL CAPUTO ([id number]) 1955 F Date Time Provider Department 09/20/23 11:00 AM GABBY COBIAN During your visit today, we recorded the following information about you: Temperature 98.3 degrees Gabby Cobian MD 09/23/2023 10:48 AM Signed Plastic Surgery [...] 4 weeks after surgery. Do not perform medical assistant secretary such as laundry and vacuuming. Do not [...] -Consult to lymphedema therapy placed. Please call [phone] to schedule, change, cancel or confirm an appointment. -Return to clinic in when CASSIDY drain meets criteria for removal, okay for home health to remove drain. -Follow up w/ Dr. Cobian in 4 weeks. -If experiencing wound complications or have any questions or concerns during business hours call [phone], option 3 or after hours (after 5 pm or on the weekend) call [phone] and ask for the plastic surgery resident / fellow cotton presser for further instructions. If you have increasing [...] patient is seen and examined by Dr. Cobian and the following reflects his service. Scribed by Elida Cordoba RN I agree with the Chief Complaint, ROS, and Past Histories independently gathered by the clinical network support engineer and the remaining scribed note accurately describes my personal service to the patient. Referring Provider: BYRON JUNE [[id number]] Allergies As of Date: 09/20/2023 Noted Allergy [...] Other Visit (more content not included)... Normal [facility] CNPNon 09-20-2023 CNPN Normal [facility] metabolic 2000 panelon 09-20-2023 Albumin [Mass/Vol] 3.9 g/dL Normal 3.9-4.9 [facility] Comment on above: Order Comment: Speci men Type: BLOOD SPECIMEN Ordering Facility: [facility] Address: [address] [place] [address] Performed By: #### 2 4323-8 #### [facility] CLIA [id number] [address] [place] [address] [place] ALP [Catalytic activity/Vol] 124 U/L High 34-123 [facility] Comment on above: Order Comment: Speci men Type: BLOOD SPECIMEN Ordering Facility: [facility] Address: [address] [place] [address] Performed By: #### 2 4323-8 #### [facility] CLIA [id number] [address] [place] [address] [place] ALT [Catalytic activity/Vol] 37 U/L Normal 7-38 [facility] Comment on above: Order Comment: Speci men Type: BLOOD SPECIMEN Ordering Facility: [facility] Address: [address] [place] [address] Performed By: #### 2 4323-8 #### [facility] CLIA [id number] [address] [place] [address] [place] Anion gap [Moles/Vol] 17 mmol/L Normal 9-18 [facility] Comment on above: Order Comment: Speci men Type: BLOOD SPECIMEN Ordering Facility: [facility] Address: [address] [place] [address] Performed By: #### 2 4323-8 #### [facility] CLIA [id number] [address] [place] [address] [place] AST [Catalytic activity/Vol] 31 U/L Normal 13-35 [facility] Comment on above: Order Comment: Speci men Type: BLOOD SPECIMEN Ordering Facility: [facility] Address: [address] [place] [address] Performed By: #### 2 4323-8 #### [facility] CLIA [id number] [address] [place] [address] [place] Bilirubin [Mass/Vol] 0.4 mg/dL Normal 0.2-1.3 [facility] Comment on above: Order Comment: Speci men Type: BLOOD SPECIMEN Ordering Facility: [facility] Address: [address] [place] [address] Performed By: #### 2 4323-8 #### [facility] CLIA [id number] [address] [place] [address] [place] Calcium [Mass/Vol] 9.1 mg/dL Normal 8.5-10.2 [facility] Comment on above: Order Comment: Speci men Type: BLOOD SPECIMEN Ordering Facility: [facility] Address: [address] [place] [address] Performed By: #### 2 4323-8 #### [facility] CLIA [id number] [address] [place] [address] [place] Chloride [Moles/Vol] 104 mmol/L Normal 97-105 [facility] Comment on above: Order Comment: Speci men Type: BLOOD SPECIMEN Ordering Facility: [facility] Address: [address] [place] [address] Performed By: #### 2 4323-8 #### [facility] CLIA [id number] [address] [place] [address] [place] CO2 [Moles/Vol] 21 mmol/L Low 22-30 [facility] Comment on above: Order Comment: Speci men Type: BLOOD SPECIMEN Ordering Facility: [facility] Address: [address] [place] [address] Performed By: #### 2 4323-8 #### [facility] CLIA [id number] [address] [place] [address] [place] Creatinine [Mass/Vol] 0.82 mg/dL Normal 0.58-0.96 [facility] Comment on above: Order Comment: Alison mccain Type: BLOOD SPECIMEN Ordering Facility: [facility] Address: [address] [place] [address] Performed By: #### 2 4323-8 #### [facility] CLIA [id number] [address] [place] [address] [place] Creatinine and Glomerular filtration rate.predicted panel (S/P/Bld) 78 mL/min/1.73m??? Normal >=60 [facility] Comment on above: Order Comment: Alison mccain Type: BLOOD SPECIMEN Ordering Facility: [facility] Address: [address] [place] [address] Result Comment: Cristal [facility] Glomerular Filtration Rate (eGFR) is calculated using [...] GFR. Performed By: #### 2 4323-8 #### [facility] CLIA [id number] [address] [place] [address] [place] Glucose [Mass/Vol] 117 mg/dL High 74-99 [facility] Comment on above: Order Comment: Alison mccain Type: BLOOD SPECIMEN Ordering Facility: [facility] Address: [address] [place] [address] Result Comment: The [place] Diabetes Association (ADA) provides guidance for cutoff [...] Standards of Medical Care in Diabetes 2016, [place] [employer]. Diabetes Care. 2016.39(Suppl 1). Performed By: #### 2 4323-8 #### [facility] CLIA [id number] [address] [place] [address] [place] Potassium [Moles/Vol] 4.2 mmol/L Normal 3.7-5.1 [facility] Comment on above: Order Comment: Alison mccain Type: BLOOD SPECIMEN Ordering Facility: [facility] Address: [address] [place] [address] Performed By: #### 2 4323-8 #### [facility] CLIA [id number] [address] [place] [address] [place] Protein [Mass/Vol] 6.8 g/dL Normal 6.3-8.0 [facility] Comment on above: Order Comment: Joeli men Type: BLOOD SPECIMEN Ordering Facility: [facility] Address: [address] [place] [address] Performed By: #### 2 4323-8 #### [facility] CLIA [id number] [address] [place] [address] [place] Sodium [Moles/Vol] 142 mmol/L Normal 136-144 [facility] Comment on above: Order Comment: Joeli men Type: BLOOD SPECIMEN Ordering Facility: [facility] Address: [address] [place] [address] Performed By: #### 2 4323-8 #### [facility] CLIA [id number] [address] [place] [address] [place] Urea nitrogen [Mass/Vol] 9 mg/dL Normal 7-21 [facility] Comment on above: Order Comment: Joeli men Type: BLOOD SPECIMEN Ordering Facility: [facility] Address: [address] [place] [address] Performed By: #### 2 4323-8 #### [facility] CLIA [id number] [address] [place] [address] [place] PT panel Coag (PPP)on 2023 INR Coag (PPP) [Relative time] 1.0 {INR} Normal 0.9-1.3 [facility] Comment on above: Order Comment: Alison mccain Type: BLOOD SPECIMEN Ordering Facility: [facility] Address: [address] [place] [address] Result Comment: Rosalinda min K Antagonist (VKA) Therapeutic Range: INR 2 to 3 (Target INR of 2.5) Note: For patients treated with VKA drugs, such as warfarin, the [place] [employer] 2012 Guideline recommends [...] 2.5 to 3.5 (target INR of 3). Mahamedtt GH, et al. Chest 2012, 141:7S-47S Tim RA, et al. [facility] 2017, 70: 252-289 Performed By: #### 3 4528-0 #### [facility] IA [id number] [address] [place] [address] [place] PT Coag (PPP) [Time] 10.9 s Normal 9.7-13.0 [facility] Comment on above: Order Comment: Alison mccain Type: BLOOD SPECIMEN Ordering Facility: [facility] Address: [address] [place] [id number] Performed By: #### 3 4528-0 #### [facility] IA [id number] [address] [place] [address] [place] Natasha 09-19-2023 [facility] Telephone (AVXRPR) -- PATITOMINAL Andres ([id number]) 1955 F Date Time Provider Department 09/19/23 ABBY JOLLY (RN) AVXRKS During your visit today, we recorded the following information about you: Abby Jolly RN 09/19/2023 1:27 PM Signed You are scheduled for a Port Placement, On 09/25/2023. You are to arrive at 1230 PM and Report to [facility]: Enter through [facility] entrance. Proceed to [...] if they are not done at a [facility] facility. . Lead Injection Mold Technician/Transportation: How will you be arriving for your procedure? Private car. If you have any questions, please call [phone] Allergies As of Date: 09/19/2023 Noted Allergy [...] Encounter Status:Closed by ABBY JOLLY on 09/19/23 [facility] CNOVSPon 09-17-2023 CNOVSP [facility] CNPNon 09-17-2023 [facility]N [facility] CNOVon 09-13-2023 CNOV [facility]2023 [facility] Telephone (YADIRA) -- MINAL CAPUTO ([id number]) 1955 F Date Time Provider Department 09/13/23 [...] Encounter Status:Closed by STEVO OLIVA on 09/13/23 [facility] Basic metabolic 2000 panelon 09-05-2023 Anion gap [Moles/Vol] 13 mmol/L Normal 9-18 [facility] Comment on above: Order Comment: Alison mccain Type: BLOOD SPECIMENOrdering Facility: [facility] Address: [address] [place] [address] Performed By: #### 2 4321-2 ####[facility] [id number] [facility] [id number] [address] [place] Calcium [Mass/Vol] 8.7 mg/dL Normal 8.5-10.2 [facility] Comment on above: Order Comment: Speci men Type: BLOOD SPECIMENOrdering Facility: [facility] Address: [address] [place] [address] Performed By: #### 2 4321-2 ####[facility] [id number] [place] [address] [place] Chloride [Moles/Vol] 104 mmol/L Normal 97-105 [facility] Comment on above: Order Comment: Speci men Type: BLOOD SPECIMENOrdering Facility: [facility] Address: [address] [place] [address] Performed By: #### 2 4321-2 ####[facility] [id number] [place] [address] [place] CO2 [Moles/Vol] 24 mmol/L Normal 22-30 [facility] Comment on above: Order Comment: Speci men Type: BLOOD SPECIMENOrdering Facility: [facility] Address: [address] [place] [address] Performed By: #### 2 4321-2 ####[facility] [id number] [place] [address] [place] Creatinine [Mass/Vol] 1.04 mg/dL High 0.58-0.96 [facility] Comment on above: Order Comment: Speci men Type: BLOOD SPECIMENOrdering Facility: [facility] Address: [address] [place] [address] Performed By: #### 2 4321-2 ####[facility] [id number] [place] [address] [place] Creatinine and Glomerular filtration rate.predicted panel (S/P/Bld) 59 mL/min/1.73m??? Low >=60 [facility] Comment on above: Order Comment: Speci men Type: BLOOD SPECIMENOrdering Facility: [facility] Address: [address] [place] [address] Result Comment: Cristal mated Glomerular Filtration Rate [...] actual GFR. Performed By: #### 2 4321-2 ####[facility] [id number] [place] [address] [place] Glucose [Mass/Vol] 169 mg/dL High 74-99 [facility] Comment on above: Order Comment: Alison mccain Type: BLOOD SPECIMENOrdering Facility: [facility] Address: [address] [place] [address] Result Comment: The [place] Diabetes Association (ADA) provides guidance for cutoff [...] Standards of Medical Care in Diabetes 2016, [place] [employer]. Diabetes Care. 2016.39(Suppl 1). Performed By: #### 2 4321-2 ####[facility] [id number] [place] [address] [place] Potassium [Moles/Vol] 4.2 mmol/L Normal 3.7-5.1 [facility] Comment on above: Order Comment: Alison mccain Type: BLOOD SPECIMENOrdering Facility: [facility] Address: [address] [place] [address] Performed By: #### 2 4321-2 ####[facility] [id number] [place] [id number] [place] Sodium [Moles/Vol] 141 mmol/L Normal 136-144 [facility] Comment on above: Order Comment: Speci men Type: BLOOD SPECIMENOrdering Facility: [facility] Address: [address] [place] [address] Performed By: #### 2 4321-2 ####[facility] [id number] [place] [address] [place] Urea nitrogen [Mass/Vol] 17 mg/dL Normal 7-21 [facility] Comment on above: Order Comment: Speci men Type: BLOOD SPECIMENOrdering Facility: [facility] Address: [address] [place] [address] Performed By: #### 2 4321-2 ####[facility] [id number] [place] [address] [place] CBC panel Auto (Bld)on 09-05 Erythrocyte distribution width (RBC) [Ratio] 13.9 % Normal 11.5-15.0 [facility] Comment on above: Order Comment: Speci men Type: BLOOD SPECIMENOrdering Facility: [facility] Address: [address] [place] [address] Performed By: #### 5 8410-2 ####[facility] [id number] [place] [address] [place] Hematocrit (Bld) [Volume fraction] 39.4 % Normal 36.0-46.0 [facility] Comment on above: Order Comment: Speci men Type: BLOOD SPECIMENOrdering Facility: [facility] Address: [address] [place] [address] Performed By: #### 5 8410-2 ####[facility] [id number] [place] [address] [place] Hemoglobin (Bld) [Mass/Vol] 13.0 g/dL Normal 11.5-15.5 [facility] Comment on above: Order Comment: Speci men Type: BLOOD SPECIMENOrdering Facility: [facility] Address: [address] [place] [address] Performed By: #### 5 8410-2 ####[facility] [id number] [place] [address] [place] MCH (RBC) [Entitic mass] 31.0 pg Normal 26.0-34.0 [facility] Comment on above: Order Comment: Speci men Type: BLOOD SPECIMENOrdering Facility: [facility] Address: [address] [place] [address] Performed By: #### 5 8410-2 ####[facility] [id number] [place] [address] [place] MCHC (RBC) [Mass/Vol] 33.0 g/dL Normal 30.5-36.0 [facility] Comment on above: Order Comment: Speci men Type: BLOOD SPECIMENOrdering Facility: [facility] Address: [address] [place] [address] Performed By: #### 5 8410-2 ####[facility] [id number] [place] [address] [place] MCV (RBC) [Entitic vol] 93.8 fL Normal 80.0-100.0 [facility] Comment on above: Order Comment: Speci men Type: BLOOD SPECIMENOrdering Facility: [facility] Address: [address] [place] [address] Performed By: #### 5 8410-2 ####[facility] [id number] [place] [address] [place] Nucleated RBC (Bld) [#/Vol] 10*3/uL Normal <0.01 [facility] Comment on above: Order Comment: Speci men Type: BLOOD SPECIMENOrdering Facility: [facility] Address: [address] [place] [address] Performed By: #### 5 8410-2 ####[facility] [id number] [place] [address] [place] Platelet mean volume (Bld) [Entitic vol] 10.3 fL Normal 9.0-12.7 [facility] Comment on above: Order Comment: Speci men Type: BLOOD SPECIMENOrdering Facility: [facility] Address: [address] [place] [address] Performed By: #### 5 8410-2 ####[facility] [id number] [place] [address] [place] Platelets (Bld) [#/Vol] 276 10*3/uL Normal 150-400 [facility] Comment on above: Order Comment: Speci men Type: BLOOD SPECIMENOrdering Facility: [facility] Address: [address] [place] [address] Performed By: #### 5 8410-2 ####[facility]IA [id number] [place] [address] [place] RBC (Bld) [#/Vol] 4.20 10*6/uL Normal 3.90-5.20 [facility] Comment on above: Order Comment: Speci men Type: BLOOD SPECIMENOrdering Facility: [facility] [facility] Address: [address] [place] [address] Performed By: #### 5 8410-2 ####[facility] LABIA [id number] [place] [address] [place] WBC (Bld) [#/Vol] 13.45 10*3/uL High 3.70-11.00 [facility] Comment on above: Order Comment: Speci men Type: BLOOD SPECIMENOrdering Facility: [facility] Address: [address] [place] [address] Performed By: #### 5 8410-2 ####[facility] LABCLIA [id number] [place] [address] [place] ANES POSTPROC EVALon 024 ANES POSTPROC EVAL Normal [facility] ANES PRE-OPon 09-04-2023 ANES PRE-OP Normal [facility] BRIEF OP NOTon 09-04-2023 BRIEF OP NOT Normal [facility] NURSING PROGon 09-04-2023 NURSING PROG Normal [facility] OPERATIVE NOon 09-04-2023 OPERATIVE NO Normal [facility] SURGICAL PATHOLOGYon 024 CASE REPORT Normal [facility] Comment on above: Order Comment: Speci men Type: TISSUE SPECIMENOrdering Facility: [facility] Address: [address] [place] [address] Result Comment: Surg ica Pathology Report Case: [id number] Provider: Heather Castillo MD Collected: 09/04/2023 09:44 AMOrdering Location: Admitting Received: 09/04/2023 02:23 PMPathologist: Maria Alejandra Haro MDSpecimens: A) - AXILLARY CONTENTS LEFT B) - SKIN EXCISION, additional left breast skin Performed By: #### S ####[facility] [id number] [place] [address] [place] CLINICAL HISTORY Normal [facility] Comment on above: Order Comment: Speci men Type: TISSUE SPECIMENOrdering Facility: [facility] Address: [address] [place] [address] Result Comment: Pre- op diagnosis:Invasive lobular carcinoma of breast in female (HCC) [C50.919] Performed By: #### S ####[facility] [id number] [address] [place] FINAL DIAGNOSIS Normal [facility] Comment on above: Order Comment: Speci men Type: TISSUE SPECIMENOrdering Facility: [facility] Address: [address] [place] [address] Result Comment: A. L eft axilla, dissection [...] prior procedure site. Performed By: #### S ####[facility] LABCLIA [id number] [place] [address] [place] FINAL PERFORMING LAB Normal [facility] Comment on above: Order Comment: Speci men Type: TISSUE SPECIMENOrdering Facility: [facility] Address: [address] [place] [address] Result Comment: Diag nostic interpretation performed at [facility], [address] [place] [address] CLIA# [id number] Director: Amor Eisenberg M.D. Performed By: #### S ####[facility] LABCLIA [id number] [address] STATES [facility] GROSS DESCRIPTION Normal [facility] Comment on above: Order Comment: Speci men Type: TISSUE SPECIMENOrdering Facility: [facility] Address: [address] [place] [address] Result Comment: A. A XILLARY CONTENTS LEFTReceived fresh labeled axillary contents left are multiple parker, soft fibroadipose tissue segments aggregating to 9 x 6.5 x 2.4 cm. Palpation and dissection reveals multiple possible lymph nodes ranging from 0.2 x 0.2 x 0.2 cm to 4 x 2.3 x 1.7 cm. [employer] sections, to include all possible lymph nodes, [...] fibrous tissue. No lesions are grossly appreciated. [employer] sections, to include skin, are submitted in 2 cassettes. The specimen is removed from the patient 12:21 PM on 09/04/2023 and placed in formalin at 3:37 PM on 09/04/2023.Gross examination performed at [facility], [facility] [address] CLIA#[id number] September 04, 2023 3:38 PM Performed By: #### S ####[facility] LABIA [id number] [place] [address] [place] VENOUS BLOOD GASES WITH IONI ZED MAGNESIUMon 09-04-2023 Base excess Calc (BldV) [Moles/Vol] 0 mmol/L Normal 0-2 [facility] Comment on above: Order Comment: Speci men Type: VENOUS BLOOD SPECIMENOrdering Facility: [facility] Address: [address] [place] [address] Performed By: #### V ALLMG ####[facility] LABCLIA [id number] [place] [address] [place] Calcium.ionized (Bld) [Mass/Vol] 1.15 mmol/L Normal 1.08-1.30 [facility] Comment on above: Order Comment: Speci men Type: VENOUS BLOOD SPECIMENOrdering Facility: [facility] Address: [address] [place] [address] Performed By: #### V ALLMG ####[facility] LABCLIA [id number] [place] [address] [place] Calcium.ionized adjusted to pH 7.4 (BldA) [Moles/Vol] 1.11 mmol/L Normal 1.08-1.30 [facility] Comment on above: Order Comment: Speci men Type: VENOUS BLOOD SPECIMENOrdering Facility: [facility] Address: [address] [place] [address] Performed By: #### V ALLMG ####[facility] LABIA [id number] [place] [address] [place] Carboxyhemoglobin (BldV) [Mass fraction] 1.4 % Normal 0.0-2.0 [facility] Comment on above: Order Comment: Speci men Type: VENOUS BLOOD SPECIMENOrdering Facility: [facility] Address: [address] [place] [address] Result Comment: Carb oxyhemoglobin Reference Range for Smokers: 2.0-8.0% Performed By: #### V ALLMG ####[facility] [id number] [place] [address] [place] CO2 (BldV) [Partial pressure] 50 mm[Hg] Normal 42-55 [facility] Comment on above: Order Comment: Speci men Type: VENOUS BLOOD SPECIMENOrdering Facility: [facility] Address: [address] [place] [address] Performed By: #### V ALLMG ####[facility] LABIA [id number] [place] [address] [place] CO2 adjusted to patient's actual temperature (BldV) [Partial pressure] 50 mmHg Normal 42-55 [facility] Comment on above: Order Comment: Speci men Type: VENOUS BLOOD SPECIMENOrdering Facility: [facility] Address: [address] [place] [address] Performed By: #### V ALLMG ####[facility] [id number] [place] [address] [place] Glucose [Mass/Vol] 186 mg/dL High 60-105 [facility] Comment on above: Order Comment: Speci men Type: VENOUS BLOOD SPECIMENOrdering Facility: [facility] Address: [address] [place] [address] Performed By: #### V ALLMG ####[facility] LABCLIA [id number] [place] [address] [place] HCO3 (Bld) [Moles/Vol] 26 mmol/L Normal 24-28 [facility] Comment on above: Order Comment: Speci men Type: VENOUS BLOOD SPECIMENOrdering Facility: [facility] Address: [address] [place] [address] Performed By: #### V ALLMG ####[facility] LABCLIA [id number] [place] [address] [place] Hematocrit (Bld) [Volume fraction] 47.0 % High 36.0-46.0 [facility] Comment on above: Order Comment: Speci men Type: VENOUS BLOOD SPECIMENOrdering Facility: [facility] Address: [address] [place] [address] Performed By: #### V ALLMG ####[facility] LABCLIA [id number] [place] [address] [place] Hemoglobin (Bld) [Mass/Vol] 15.3 g/dL Normal 11.5-15.5 [facility] Comment on above: Order Comment: Speci men Type: VENOUS BLOOD SPECIMENOrdering Facility: [facility] Address: [address] [place] [address] Performed By: #### V ALLMG ####[facility] LABCLIA [id number] [place] [address] [place] Lactate [Moles/Vol] 2.4 mmol/L High 0.5-2.2 [facility] Comment on above: Order Comment: Speci men Type: VENOUS BLOOD SPECIMENOrdering Facility: [facility] Address: [address] [place] [address] Performed By: #### V ALLMG ####[facility] LABCLIA [id number] [place] [address] [place] Magnesium [Moles/Vol] 0.53 mmol/L Normal 0.45-0.60 [facility] Comment on above: Order Comment: Speci men Type: VENOUS BLOOD SPECIMENOrdering Facility: [facility] Address: [address] [place] [address] Performed By: #### V ALLMG ####[facility] LABCLIA [id number] [place] [address] [place] Methemoglobin (Bld) [Mass fraction] 0.8 % Normal 0.0-1.5 [facility] Comment on above: Order Comment: Speci men Type: VENOUS BLOOD SPECIMENOrdering Facility: [facility] Address: [address] [place] [address] Performed By: #### V ALLMG ####[facility] LABCLIA [id number] [place] [address] [place] Oxygen (BldV) [Partial pressure] 50 mm[Hg] High 35-45 [facility] Comment on above: Order Comment: Speci men Type: VENOUS BLOOD SPECIMENOrdering Facility: [facility] Address: [address] [place] [address] Performed By: #### V ALLMG ####[facility] LABCLIA [id number] [place] [address] [place] Oxygen adjusted to patient's actual temperature (BldV) [Partial pressure] 50 mmHg High 35-45 [facility] Comment on above: Order Comment: Speci men Type: VENOUS BLOOD SPECIMENOrdering Facility: [facility] Address: [address] [place] [address] Performed By: #### V ALLMG ####[facility] LABCLIA [id number] [place] [address] [place] Oxygen saturation in Venous blood 81 % Normal 60-85 [facility] Comment on above: Order Comment: Speci men Type: VENOUS BLOOD SPECIMENOrdering Facility: [facility] Address: [address] [place] [address] Performed By: #### V ALLMG ####[facility] LABCLIA [id number] [address] [address] [place] Oxyhemoglobin (BldV) [Mass fraction] 79 % Normal 60-85 [facility] Comment on above: Order Comment: Speci men Type: VENOUS BLOOD SPECIMENOrdering Facility: [facility] Address: [address] [place] [address] Performed By: #### V ALLMG ####[facility] LABCLIA [id number] [place] [address] [place] pH (BldV) 7.33 [pH] Normal 7.32-7.42 [facility] Comment on above: Order Comment: Speci men Type: VENOUS BLOOD SPECIMENOrdering Facility: [facility] Address: [address] [place] [address] Performed By: #### V ALLMG ####[facility] LABCLIA [id number] [place] [address] [place] pH adjusted to patient's actual temperature (BldV) 7.33 Normal 7.32-7.42 [facility] Comment on above: Order Comment: Speci men Type: VENOUS BLOOD SPECIMENOrdering Facility: [facility] Address: [address] [place] [address] Performed By: #### V ALLMG ####[facility] LABCLIA [id number] [place] [address] [place] Potassium [Moles/Vol] 3.7 mmol/L Normal 3.5-5.0 [facility] Comment on above: Order Comment: Speci men Type: VENOUS BLOOD SPECIMENOrdering Facility: [facility] Address: [address] [place] [address] Performed By: #### V ALLMG ####[facility] LABCLIA [id number] [place] [address] [place] Sodium [Moles/Vol] 138 mmol/L Normal 136-144 [facility] Comment on above: Order Comment: Speci men Type: VENOUS BLOOD SPECIMENOrdering Facility: [facility] Address: [address] [place] [address] Performed By: #### V ALLMG ####[facility] LABCLIA [id number] [place] [address] [place] CNOVon 08-29-2023 CNOV Normal [facility] CNPNon 08-16-2023 CNPN Normal [facility] CNPNon 08-12-2023 CNPN Normal [facility] CNPNon 08-09-2023 CNPN Normal [facility] CNOVon 08-06-2023 CNOV Normal [facility] CNOV Normal [facility] CNOVSPon 08-06-2023 CNOVSP Normal [facility] CASE MANAGEMon 07-30-2023 CASE MANAGEM Normal [facility] CASE MGT INIT ASSESon 2022 CASE MGT INIT ASSES Normal [facility] ANES POSTPROC EVALon 023 ANES POSTPROC EVAL Normal [facility] ANES PRE-OPon 07-29-2023 ANES PRE-OP Normal [facility] NM INJ SENT NODE BREAST LTon 07-29-2023 NM INJ SENT NODE BREAST LT Normal [facility] NM INJ SENTINEL NODE BREAST LEFTon 07-29-2023 [facility] NURSING PROGon 07-29-2023 NURSING PROG Normal [facility] OPERATIVE NOon 07-29-2023 OPERATIVE NO Normal [facility] SURGICAL PATHOLOGYon 023 BLOCK FOR ADDITIONAL BIOMARKERS/MOLECULAR STUDIES A7 Normal [facility] Comment on above: Order Comment: Speci men Type: TISSUE SPECIMENOrdering Facility: [facility] Address: [address] [place] [address] Performed By: #### S ####[facility] LABCLIA [id number] [place] [address] [place] CASE REPORT Normal [facility] Comment on above: Order Comment: Speci men Type: TISSUE SPECIMENOrdering Facility: [facility] Address: [address] [place] [address] Result Comment: Surg ica Pathology Report Case: [id number] Provider: Heather Castillo MD Collected: 07/29/2023 11:29 [...] left breast skin Performed By: #### S ####[facility] [id number] [place] [address] [place] CLINICAL HISTORY Normal [facility] Comment on above: Order Comment: Speci men Type: TISSUE SPECIMENOrdering Facility: [facility] Address: [address] [place] [address] Result Comment: Pre- op diagnosis:Invasive lobular carcinoma of breast in female (HCC) [C50.919] Performed By: #### S ####[facility] [id number] [place] [address] [place] DIAGNOSIS COMMENT Normal [facility] Comment on above: Order Comment: Speci men Type: TISSUE SPECIMENOrdering Facility: [facility] Address: [address] [place] [address] Result Comment: The following immunohistochemical stains were performed to help establish the diagnosis:- Keratin AE1/3 (block E1): Highlights isolated tumor cells in lymph nodeThe preliminary findings were communicated to Dr. Celia Donaldson, Dr. Sandro Rehman, and Juliet Cai SURFACE BOSS by Dr. Saravanan Danielle via secure email on 16/07/2023 at 10:11 a.m.Laboratory Developed Test (LDT) Disclaimer:Performance characteristics of immunohistochemical, immunofluorescent and chromogenic in-situ hybridization tests have been determined by the performing laboratory within [facility]???s [facility] Pathology and Laboratory Medicine [place] ([facility], [facility], [facility], [facility], [facility], [facility], or [facility]) in a manner consistent with CLIA requirements. One or more of these tests have not been cleared or approved by the FDA. [facility] is regulated under CLIA as qualified to perform high-complexity testing. These tests are used for clinical purposes. They should not be regarded as investigational or for research. Positive and negative controls stain appropriately. Performed By: #### S ####[facility] LABCLIA [id number] [facility] [id number] [place] [address] [place] FINAL DIAGNOSIS Normal [facility] Comment on above: Order Comment: Speci men Type: TISSUE SPECIMENOrdering Facility: [facility] Address: [address] [place] [address] Result Comment: A. L eft breast, mastectomy:- [...] carcinoma in one lymph node, 4 mm (08/26).D. 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 Left axillary sentinel lymph node #4, excision:Isolated tumor cells in one lymph node (i+/1).F. Left breast, medial tissue, excision:Benign skin and fibroadipose tissue, negative for carcinoma.G. Left breast skin, excision:Benign skin, negative for carcinoma. Performed By: #### S ####[facility] LABCLIA [id number] [address] STATES OF [facility] FINAL PERFORMING LAB Normal [facility] Comment on above: Order Comment: Speci men Type: TISSUE SPECIMENOrdering Facility: [facility] Address: [address] [place] [address] Result Comment: Diag nostic interpretation performed at [facility], [address] [address] CLIA# [id number] Director: Amor Eisenberg M.D. Performed By: #### S ####[facility] LABCLIA [id number] [address] GROSS DESCRIPTION Normal [facility] Comment on above: Order Comment: Speci men Type: TISSUE SPECIMENOrdering Facility: [facility] Address: [address] [place] [address] Result Comment: A. B REAST MASTECTOMY LEFTReceived [...] and was placed in formalin at 12:50 PM.[employer] sections are submitted as follows:A1-A13: mass in lower outer quadrant section along the longest linear dimension from lateral to medial (nonmarginal)A14: Mass to closest deep adhbsuT47: Mass to closest inferior radial nikyniX08: Closest superior radial vazuhkH06: [employer] slice lateral to mass (nonmarginal)A18: [employer] slice medial to mass (additional inferior radial margin)A19: Nonmarginal upper outer wtbqknqsS48: Nonmarginal lower outer vmefksnbY97: Nonmarginal upper inner irrdrutwS92: Nonmarginal lower inner dvgwulkgO34-U05: Nipple, entirely submittedGross examination performed at [facility], [address] [place] [address] CLIA#[id number] 07/30/23 11:06 AMAfter initial microscopic evaluation, additional sections are submitted as follows:A27-29 nonmarginal tissue directly lateral to mass, lower outer quadrant (submitted in sequence from most medial to most lateral)A30-32 nonmarginal tissue directly medial to mass, lower inner quadrant (submitted in sequence from most lateral to the most medial)[facility] August 01, 2023 4:10 PMGross examination performed at [facility], [address] [place], [place] [address]After microscopic evaluation, additional sections are submitted as follows:A33-A34: Consecutive sections medial to U43R07-E05: Additional sections of posterior margin near tubqxO84-G40: Additional sections of anterior margin near tumor, inferior to skinGross examination performed at [facility], [address], [place] [address] CLIA#[id number] 08/05/23 3:55 PMB. SENTINEL LYMPH NODE LEFTReceived [...] 29, 2023 1:27 PMGross examination performed at [facility], [address] [place], [place] [address]C. SENTINEL LYMPH NODE LEFTReceived in formalin labeled axillary node #2 is an excision of rubbery fibroadipose tissue measuring 3.6 x 3.4 x 1.5 cm with an ovoid, pink-yellow, rubbery lymph node measuring 3 x 2.1 x 0.4 cm. The cut surfaces are rubbery and glistening.Entirely submitted as follows:C1-C2: Entire sectioned lymph nodeC3: Residual adipose tissueALM July 29, 2023 1:30 PMGross examination performed at [facility], [address] [place], [place] [address]D. SENTINEL LYMPH NODE LEFTReceived in formalin labeled [...] 29, 2023 1:32 PMGross examination performed at [facility], [employer] [place] [id number]. SENTINEL LYMPH NODE LEFTReceived in formalin labeled [...] 29, 2023 1:35 PMGross examination performed at [facility], [employer] [place] [id number]. BREAST MARGIN LEFTReceived in formalin labeled medial [...] marginsF9: Slice 9 anterior, posterior, superior, inferior jjmjgulN07: Slice 10 lateral marginALM July 29, 2023 1:56 PMGross examination performed at [facility], [address] [place], [place] [address]Q. SKIN EXCISIONReceived in formalin labeled left breast skin are multiple irregularly shaped, pink-parker, soft skin excisions aggregating to 3.5 x 2.3 x 0.4 cm. There are no obvious skin lesions. [employer] sections are submitted in cassettes G1-G2.BRUCE July 29, 2023 1:59 PMGross examination performed at [facility], [place] [address] Performed By: #### S ####[facility] LABCLIA [id number] [address] [id number] [address] [place] SYNOPTIC REPORT Normal [facility] Comment on above: Order Comment: Speci men Type: TISSUE SPECIMENOrdering Facility: [facility] Address: [address] [place] [address] Result Comment: INVA SIVE CARCINOMA OF THE BREAST: ResectionINVASIVE CARCINOMA OF THE BREAST: EXCISION - All Poqnlpfve0yl Edition - Protocol posted: 11/14/2022SPECIMEN Procedure: Total [...] Examined (sentinel and non-sentinel): 4 Number of Kirby Nodes Examined: 4pTNM CLASSIFICATION (AJCC 8th Edition) [...] on (outside case, slides reviewed at the [facility]) Comment(s): Invasive lobular carcinoma is present in 21 consecutive sampled sections in the medial-lateral dimension, measuring at least 63 mm. Performed By: #### S ####[facility] LABIA [id number] [place] [address] [place] 25(OH)D3 [facility] 20[facility] 25-hydroxyvitamin D3 [Mass/Vol] 69.2 ng/mL Normal 31.0-80.0 [facility] Comment on above: Order Comment: Speci men Type: BLOOD SPECIMENOrdering Facility: [facility] Address: [address] [place] [address] Result Comment: Clas sification of 25 [place] Vitamin D status:Deficiency/Insufficiency: < or = 30 ng/ml.Sufficiency/Optimal Levels: 31-80 ng/mLToxicity: > 100 ng/mL.Test performed by chemiluminescent immunoassay. Performed By: #### 1 989-3 ####[facility] [id number] [place] [address] [place] CBC W Auto Differential pane l (Bld)on 07-26-2023 Basophils (Bld) [#/Vol] 0.03 10*3/uL Normal <0.11 [facility] Comment on above: Order Comment: Speci men Type: BLOOD SPECIMENOrdering Facility: [facility] Address: [address] [place] [address] Performed By: #### 5 7021-8 ####[facility] LABIA [id number] [place] [address] [place] Basophils/100 WBC (Bld) 0.4 % Normal [facility] Comment on above: Order Comment: Speci men Type: BLOOD SPECIMENOrdering Facility: [facility] Address: [address] [place] [address] Performed By: #### 5 7021-8 ####[facility] LABCLIA [id number] [place] [address] [place] Differential cell count method Nom (Bld) Auto Normal [facility] Comment on above: Order Comment: Speci men Type: BLOOD SPECIMENOrdering Facility: [facility] Address: [address] [place] [address] Performed By: #### 5 7021-8 ####[facility] LABCLIA [id number] [place] [address] [place] Eosinophils (Bld) [#/Vol] 0.21 10*3/uL Normal <0.46 [facility] Comment on above: Order Comment: Speci men Type: BLOOD SPECIMENOrdering Facility: [facility] Address: [address] [place] [address] Performed By: #### 5 7021-8 ####[facility] LABCLIA [id number] [place] [address] [place] Eosinophils/100 WBC (Bld) 2.5 % Normal [facility] Comment on above: Order Comment: Speci men Type: BLOOD SPECIMENOrdering Facility: [facility] Address: [address] [place] [address] Performed By: #### 5 7021-8 ####[facility] LABCLIA [id number] [place] [address] [place] Erythrocyte distribution width (RBC) [Ratio] 14.8 % Normal 11.5-15.0 [facility] Comment on above: Order Comment: Speci men Type: BLOOD SPECIMENOrdering Facility: [facility] Address: [address] [place] [address] Performed By: #### 5 7021-8 ####[facility] LABCLIA [id number] [place] [address] [place] Hematocrit (Bld) [Volume fraction] 43.2 % Normal 36.0-46.0 [facility] Comment on above: Order Comment: Speci men Type: BLOOD SPECIMENOrdering Facility: [facility] Address: [address] [place] [address] Performed By: #### 5 7021-8 ####[facility] LABCLIA [id number] [place] [address] [place] Hemoglobin (Bld) [Mass/Vol] 14.1 g/dL Normal 11.5-15.5 [facility] Comment on above: Order Comment: Speci men Type: BLOOD SPECIMENOrdering Facility: [facility] Address: [address] [place] [address] Performed By: #### 5 7021-8 ####[facility] LABCLIA [id number] [place] [address] [place] Immature granulocytes (Bld) [#/Vol] 0.03 10*3/uL Normal <0.10 [facility] Comment on above: Order Comment: Speci men Type: BLOOD SPECIMENOrdering Facility: [facility] Address: [address] [place] [address] Performed By: #### 5 7021-8 ####[facility] LABCLIA [id number] [place] [address] [place] Immature granulocytes/100 WBC (Bld) 0.4 % Normal [facility] Comment on above: Order Comment: Speci men Type: BLOOD SPECIMENOrdering Facility: [facility] Address: [address] [place] [address] Performed By: #### 5 7021-8 ####[facility] LABCLIA [id number] [place] [address] [place] Lymphocytes (Bld) [#/Vol] 1.90 10*3/uL Normal 1.00-4.00 [facility] Comment on above: Order Comment: Speci men Type: BLOOD SPECIMENOrdering Facility: [facility] Address: [address] [place] [address] Performed By: #### 5 7021-8 ####[facility] LABCLIA [id number] [place] [address] [place] Lymphocytes/100 WBC (Bld) 22.3 % Normal [facility] Comment on above: Order Comment: Speci men Type: BLOOD SPECIMENOrdering Facility: [facility] Address: [address] [place] [address] Performed By: #### 5 7021-8 ####[facility] LABCLIA [id number] [place] [address] [place] MCH (RBC) [Entitic mass] 30.9 pg Normal 26.0-34.0 [facility] Comment on above: Order Comment: Speci men Type: BLOOD SPECIMENOrdering Facility: [facility] Address: [address] [place] [address] Performed By: #### 5 7021-8 ####[facility] LABCLIA [id number] [place] [address] [place] MCHC (RBC) [Mass/Vol] 32.6 g/dL Normal 30.5-36.0 [facility] Comment on above: Order Comment: Speci men Type: BLOOD SPECIMENOrdering Facility: [facility] Address: [address] [place] [address] Performed By: #### 5 7021-8 ####[facility] LABIA [id number] [place] [address] [place] MCV (RBC) [Entitic vol] 94.7 fL Normal 80.0-100.0 [facility] Comment on above: Order Comment: Speci men Type: BLOOD SPECIMENOrdering Facility: [facility] Address: [address] [place] [address] Performed By: #### 5 7021-8 ####[facility] LABCLIA [id number] [place] [address] [place] Monocytes (Bld) [#/Vol] 0.65 10*3/uL Normal <0.87 [facility] Comment on above: Order Comment: Speci men Type: BLOOD SPECIMENOrdering Facility: [facility] Address: [address] [place] [address] Performed By: #### 5 7021-8 ####[facility] LABCLIA [id number] [place] [address] [place] Monocytes/100 WBC (Bld) 7.6 % Normal [facility] Comment on above: Order Comment: Speci men Type: BLOOD SPECIMENOrdering Facility: [facility] Address: [address] [place] [address] Performed By: #### 5 7021-8 ####[facility] LABCLIA [id number] [place] [address] [place] Neutrophils (Bld) [#/Vol] 5.69 10*3/uL Normal 1.45-7.50 [facility] Comment on above: Order Comment: Speci men Type: BLOOD SPECIMENOrdering Facility: [facility] Address: [address] [place] [address] Performed By: #### 5 7021-8 ####[facility] LABCLIA [id number] [place] [address] [place] Neutrophils/100 WBC (Bld) 66.8 % Normal [facility] Comment on above: Order Comment: Speci men Type: BLOOD SPECIMENOrdering Facility: [facility] Address: [address] [place] [address] Performed By: #### 5 7021-8 ####[facility] LABCLIA [id number] [place] [address] [place] Nucleated RBC (Bld) [#/Vol] 10*3/uL Normal <0.01 [facility] Comment on above: Order Comment: Speci men Type: BLOOD SPECIMENOrdering Facility: [facility] Address: [address] [place] [address] Performed By: #### 5 7021-8 ####[facility] LABCLIA [id number] [place] [address] [place] Nucleated RBC/100 WBC (Bld) [Ratio] 0.0 /100 WBC Normal [facility] Comment on above: Order Comment: Speci men Type: BLOOD SPECIMENOrdering Facility: [facility] Address: [address] [place] [address] Performed By: #### 5 7021-8 ####[facility] LABIA [id number] [place] [address] [place] Platelet mean volume (Bld) [Entitic vol] 10.1 fL Normal 9.0-12.7 [facility] Comment on above: Order Comment: Speci men Type: BLOOD SPECIMENOrdering Facility: [facility] Address: [address] [place] [address] Performed By: #### 5 7021-8 ####[facility] LABIA [id number] [place] [address] [place] Platelets (Bld) [#/Vol] 314 10*3/uL Normal 150-400 [facility] Comment on above: Order Comment: Speci men Type: BLOOD SPECIMENOrdering Facility: [facility] Address: [address] [place] [address] Performed By: #### 5 7021-8 ####[facility] LABIA [id number] [place] [address] [place] RBC (Bld) [#/Vol] 4.56 10*6/uL Normal 3.90-5.20 [facility] Comment on above: Order Comment: Speci men Type: BLOOD SPECIMENOrdering Facility: [facility] Address: [address] [place] [address] Performed By: #### 5 7021-8 ####[facility] LABCLIA [id number] [place] [address] [place] WBC (Bld) [#/Vol] 8.51 10*3/uL Normal 3.70-11.00 [facility] Comment on above: Order Comment: Speci men Type: BLOOD SPECIMENOrdering Facility: [facility] Address: [address] [place] [address] Performed By: #### 5 7021-8 ####[facility] LABCLIA [id number] [address] [address] [place] Comprehensive metabolic 2000 panelon 07-26-2023 Albumin [Mass/Vol] 4.2 g/dL Normal 3.9-4.9 [facility] Comment on above: Order Comment: Speci men Type: BLOOD SPECIMENOrdering Facility: [facility] Address: [address] [place] [address] Performed By: #### 2 4323-8 ####[facility] LABCLIA [id number] [place] [address] [place] ALP [Catalytic activity/Vol] 95 U/L Normal 34-123 [facility] Comment on above: Order Comment: Speci men Type: BLOOD SPECIMENOrdering Facility: [facility] Address: [address] [place] [address] Performed By: #### 2 4323-8 ####[facility] LABCLIA [id number] [place] [address] [place] ALT [Catalytic activity/Vol] 31 U/L Normal 7-38 [facility] Comment on above: Order Comment: Speci men Type: BLOOD SPECIMENOrdering Facility: [facility] Address: [address] [place] [address] Performed By: #### 2 4323-8 ####[facility] LABCLIA [id number] [place] [id number] [place] Anion gap [Moles/Vol] 13 mmol/L Normal 9-18 [facility] Comment on above: Order Comment: Speci men Type: BLOOD SPECIMENOrdering Facility: [facility] Address: [address] [place] [address] Performed By: #### 2 4323-8 ####[facility] LABCLIA [id number] [address] [address] [place] AST [Catalytic activity/Vol] 24 U/L Normal 13-35 [facility] Comment on above: Order Comment: Speci men Type: BLOOD SPECIMENOrdering Facility: [facility] Address: [address] [place] [address] Performed By: #### 2 4323-8 ####[facility] LABCLIA [id number] [place] [address] [place] Bilirubin [Mass/Vol] 0.5 mg/dL Normal 0.2-1.3 [facility] Comment on above: Order Comment: Speci men Type: BLOOD SPECIMENOrdering Facility: [facility] Address: [address] [place] [address] Performed By: #### 2 4323-8 ####[facility] LABCLIA [id number] [place] [address] [place] Calcium [Mass/Vol] 9.5 mg/dL Normal 8.5-10.2 [facility] Comment on above: Order Comment: Speci men Type: BLOOD SPECIMENOrdering Facility: [facility] Address: [address] [place] [address] Performed By: #### 2 4323-8 ####[facility] LABCLIA [id number] [place] [address] [place] Chloride [Moles/Vol] 104 mmol/L Normal 97-105 [facility] Comment on above: Order Comment: Speci men Type: BLOOD SPECIMENOrdering Facility: [facility] Address: [address] [place] [address] Performed By: #### 2 4323-8 ####[facility] LABCLIA [id number] [place] [id number] [place] CO2 [Moles/Vol] 24 mmol/L Normal 22-30 [facility] Comment on above: Order Comment: Speci men Type: BLOOD SPECIMENOrdering Facility: [facility] Address: [address] [place] [address] Performed By: #### 2 4323-8 ####[facility] LABIA [id number] [place] [address] [place] Creatinine [Mass/Vol] 0.79 mg/dL Normal 0.58-0.96 [facility] Comment on above: Order Comment: Speci men Type: BLOOD SPECIMENOrdering Facility: [facility] Address: [address] [place] [address] Performed By: #### 2 4323-8 ####[facility] LABIA [id number] [place] [address] [place] Creatinine and Glomerular filtration rate.predicted panel (S/P/Bld) 82 mL/min/1.73m??? Normal >=60 [facility] Comment on above: Order Comment: Speci men Type: BLOOD SPECIMENOrdering Facility: [facility] Address: [address] [place] [address] Result Comment: Cristal mated Glomerular Filtration Rate [...] actual GFR. Performed By: #### 2 4323-8 ####[facility] LABIA [id number] [place] [address] [place] Glucose [Mass/Vol] 101 mg/dL High 74-99 [facility] Comment on above: Order Comment: Speci men Type: BLOOD SPECIMENOrdering Facility: [facility] Address: [address] [place] [address] Result Comment: The [employer] Association (ADA) provides guidance for cutoff [...] Standards of Medical Care in Diabetes 2016, [employer]. Diabetes Care. 2016.39(Suppl 1). Performed By: #### 2 4323-8 ####[facility] LABCLIA [id number] [place] [address] [place] Potassium [Moles/Vol] 4.0 mmol/L Normal 3.7-5.1 [facility] Comment on above: Order Comment: Alison mccain Type: BLOOD SPECIMENOrdering Facility: [facility] Address: [address] [place] [address] Performed By: #### 2 4323-8 ####[facility] LABCLIA [id number] [place] [address] [place] Protein [Mass/Vol] 6.7 g/dL Normal 6.3-8.0 [facility] Comment on above: Order Comment: Alison mccain Type: BLOOD SPECIMENOrdering Facility: [facility] Address: [address] [place] [address] Performed By: #### 2 4323-8 ####[facility] LABCLIA [id number] [place] [address] [place] Sodium [Moles/Vol] 141 mmol/L Normal 136-144 [facility] Comment on above: Order Comment: Alison mccain Type: BLOOD SPECIMENOrdering Facility: [facility] Address: [address] [place] [address] Performed By: #### 2 4323-8 ####[facility] LABCLIA [id number] [place] [address] [place] Urea nitrogen [Mass/Vol] 15 mg/dL Normal 7-21 [facility] Comment on above: Order Comment: Speci men Type: BLOOD SPECIMENOrdering Facility: [facility] Address: [address] [place] [address] Performed By: #### 2 4323-8 ####[facility] LABCLIA [id number] [facility] HOSPITALKrista [facility]OS[facility]ITALK [id number] [id number] [place] HISTORY PHYSICALon HISTORY PHYSICAL Normal [facility] MISC SEND OUT TST 1on 2022 REFERRAL LAB 1 [facility] Normal [facility] Comment on above: Order Comment: Speci men Type: BLOOD SPECIMENOrdering Facility: [facility] Address: [address] [place] [address] Performed By: #### M ISC1 ####NON-INTERFACED REF LABSCLIA SEE SCANNED RESULTS TEST 1 Multi Cancer Panel Normal [facility] Comment on above: Order Comment: Speci men Type: BLOOD SPECIMENOrdering Facility: [facility] Address: [address] [place] [address] Performed By: #### M ISC1 ####NON-INTERFACED REF LABSCLIA SEE SCANNED RESULTS TEST RESULTS 1 View results in Scan isela Documents link when available. Normal [facility] Comment on above: Order Comment: Speci men Type: BLOOD SPECIMENOrdering Facility: [facility] Address: [address] [place] [address] Performed By: #### M ISC1 ####NON-INTERFACED REF LABSCLIA SEE SCANNED RESULTS US AXILLA ONLY LEFTon 2022 [facility] Activated partial thrombopla stin time (aPTT) in platelet poor plasma by coagulation aOrdered By: Janet Dillard on 02-28-2023 aPTT Coag (PPP) [Time] 27.6 s 25.1-36.5 [facility] - CoagulationOrde red By: Janet Dillard on 02-28-2023 PT Coag (PPP) [Time] 12.1 s 9.0-12.9 [facility] Platelet poor plasma interna tional normalized ratio (INR) by coagulation assay (relatOrdered By: Janet Dillard on 02-28-2023 INR Coag (PPP) [Relative time] 1.0 {INR} [facility] Comment on above: INR Therapeutic Rang [...] 02-28-2023 Platelets (Bld) [#/Vol] 304 10*3/uL 150-450 [facility] ANES POSTPROC EVALon 023 ANES POSTPROC EVAL HNO ID: [id number] Author: Suzanne Gutierrez MD Service: Anesthesiology Author Type: Anesthesiologist Type: [...] (Follow-up of gastro-esophageal reflux disease) Scheduled Providers: Lincoln Jordan Jr., MD; Suzanne Gutierrez MD; Yoan Rivas APRN.CLINICAL EDUCATION SPECIALIST; Judy Galdamez RN Responsible Provider: Suzanne Gutierrez MD Anesthesia Type: MAC ASA Status: 3 [...] care. Anesthesia Observations No Documentation SIGNATURE: SUZANNE GUTIERREZ MD PATIENT NAME: Minal Caputo DATE: February 11, 2023 TIME: 11:41 AM CSN: [id number] [facility] ANES PRE-OPon 02-11-2023 ANES PRE-OP HNO ID: [id number] Author: Suzanne Gutierrez MD Service: Anesthesiology Author Type: Anesthesiologist Type: Anesthesia Preprocedure Evaluation Filed: 02/11/2023 10:02 AM Note Text: ANESTHESIOLOGY DAY OF SURGERY NOTE : 1955 Procedure Information Date/Time: 02/11/23 1030 Scheduled providers: Lincoln Jordan Jr., MD; Suzanne Gutierrez MD; Yoan Rivas APRN.CLINICAL EDUCATION SPECIALIST; Judy Galdamez RN Procedures: COLONOSCOPY SCREENING EGD [...] and consent discussed: yes. Patient / Responsible [employer] Party agrees to proceed: yes Patient / [...] within 48 hours of Surgery/Procedure. SIGNATURE: SUZANNE GUTIERREZ MD PATIENT NAME: Minal Caputo DATE: February 11, 2023 TIME: 10:02 AM CSN: [id number] Normal [facility] Colonoscopyon 02-11-2023 Colonoscopy [facility] Gastrointestinal Endoscopy Patient Name: Minal Caputo Procedure Date: 02/11/2023 10:45 AM Date of : 1955 Admit Type: Outpatient Age: 67 Room: [place] [address] Gender: Female Note Status: Finalized Attending MD: Lincoln Jordan Jr, MD Procedure: Colonoscopy Indications: High risk colon cancer surveillance: Personal history of colonic polyps Providers: Lincoln Jordan Jr, MD Patient Profile: Last Colonoscopy: June [...] or abscess without bleeding CPT copyright 2020 [employer]. All rights reserved. The codes documented in this report are preliminary and upon funeral home attendant review may be revised to meet current compliance requirements. Attending Participation: I personally performed the entire procedure. Scope In: 11:10:24 AM Scope Out: 11:20:04 AM MD Lincoln Schumacher Jr, MD 02/11/2023 11:22:51 AM This report has been signed electronically by Lincoln Jordan Jr, MD Number of Addenda: 0 Note Initiated On: 02/11/2023 10:45 AM Estimated Blood Loss: Estimated blood loss: none. [facility] SURGICAL PATHOLOGYon 023 CASE REPORT [facility] Comment on above: Order Comment: Speci kalyn Type: TISSUE SPECIMEN [facility] Address: [address] [place] [address] Result Comment: Surg [facility] Pathology Report Case: [id number] Authorizing Provider: Lincoln Jordan Jr., MD Collected: 02/11/2023 11:03 AM Ordering Location: Procedures Received: 02/11/2023 01:14 PM Pathologist: Davin Herzog MD Specimen: FUNDUS (STOMACH) BIOPSY, fundic gland polyps Performed By: #### S #### [facility] CLIA [id number] [address] [place] [address] OF [facility] FINAL DIAGNOSIS Normal [facility] Comment on above: Order Comment: Speci men Type: TISSUE SPECIMEN [facility] Address: [address] [place] [address] Result Comment: Stom ach, polyps, biopsies: - Fundic gland polyps. JEL 02/12/2023 Performed By: #### S #### [facility] CLIA [id number] [address] [place] [address] OF [facility] FINAL PERFORMING LAB Normal [facility] Comment on above: Order Comment: Speci men Type: TISSUE SPECIMEN [facility] Address: [address] [place] [address] Result Comment: Diag nostic interpretation performed at [facility], [address] [place] [address] CLIA# [id number] Lithographer Helper: Jaleel Garza M.D. Performed By: #### S #### [facility] CLIA [id number] [address] [place] [address] GROSS DESCRIPTION Normal [facility] spital Comment on above: Order Comment: Speci men Type: TISSUE SPECIMEN [facility] Address: [address] [place] [address] Result Comment: A. F UNDUS (STOMACH) BIOPSY Received in formalin are two pieces of parker, soft tissue aggregating to 0.7 x 0.2 x 0.2 cm. Totally submitted in one cassette. February 11, 2023 4:29 PM Gross examination performed at [facility], [address] [place] [address] Performed By: #### S #### [facility] CLIA [id number] [address] [place] [address] Upper GI endoscopyon 023 Upper GI endoscopy [facility] Gastrointestinal Endoscopy Patient Name: Minal Caputo Procedure Date: 02/11/2023 10:48 AM Date of : 1955 Admit Type: Outpatient Age: 67 Room: [place] [address] Gender: Female Note Status: Finalized Attending MD: Lincoln Jordan Jr, MD Procedure: Upper GI endoscopy Indications: Follow-up of gastro-esophageal reflux disease Providers: Lincoln Jordan Jr, MD Referring Physician: Nell Trujillo CNP [...] pathology results. Procedure Code(s): --- Professional --- 65179, Esophagogastroduodenoscopy , flexible, transoral; with biopsy, single or multiple Diagnosis Code(s): --- Professional --- K44.9, Diaphragmatic hernia without obstruction or gangrene K31.7, Polyp of stomach and duodenum K21.9, Gastro-esophageal reflux disease without esophagitis CPT copyright 2020 [employer]. All rights reserved. The codes documented in this report are preliminary and upon funeral home attendant review may be revised to meet current compliance requirements. Attending Participation: I personally performed the entire procedure. Scope In: 11:01:22 AM Scope Out: 11:05:45 AM MD Lincoln Schumacher Jr, MD 02/11/2023 11:08:03 AM This report has been signed electronically by Lincoln Jordan Jr, MD Number of Addenda: 0 Note Initiated On: 02/11/2023 10:48 AM Estimated Blood Loss: Estimated blood loss: none. Normal [facility] CBC AUTO DIFFon 12-11-2022 BASO # 0.0 103/ul Normal 0.0-0.1 [facility] Comment on above: Performed By: #### C BC #### [facility] [address] [place] [address] Dr. Jessica Fall Basophils/100 WBC (Bld) 0.1 % Critically low 0.2-2.0 [facility] Comment on above: Performed By: #### C BC #### [facility] [address] [place] [address] Dr. Jessica Fall EO # 0.0 103/ul Normal 0.0-0.7 [facility] Comment on above: Performed By: #### C BC #### [facility] [address] [place] [address] Dr. Jessica Fall Eosinophils/100 WBC (Bld) 0.0 % Critically low 0.9-7.0 [facility] Comment on above: Performed By: #### C BC #### [facility] [address] [place] [address] Dr. Jessica Fall Erythrocyte distribution width (RBC) [Ratio] 13.9 % Normal 11.0-15.0 [facility] Comment on above: Performed By: #### C BC #### [facility] [address] [place] [address] Dr. Jessica Fall Hematocrit (Bld) [Volume fraction] 43.5 % Normal 36.0-48.0 [facility] Comment on above: Performed By: #### C BC #### [facility] [address] [place] [address] Dr. Jessica Fall Hemoglobin (Bld) [Mass/Vol] 14.6 g/dL Normal 12.0-16.0 [facility] Comment on above: Performed By: #### C BC #### [facility] [address] [place] [address] Dr. Jessica Fall IG # 0.18 10e3/ul Critically high 0.00-0.03 [facility] Comment on above: Performed By: #### C BC #### [facility] [address] [place] [address] Dr. Jessica Fall IG % 1.0 % Critically high 0.0-0.5 [facility] Comment on above: Performed By: #### C BC #### [facility] [address] [place] [address] Dr. Jessica Fall LYMPH # 1.5 103/ul Normal 1.2-3.8 [facility] Comment on above: Performed By: #### C BC #### [facility] [address] [place] [address] Dr. Jessica Fall Lymphocytes/100 WBC (Bld) 8.3 % Critically low 20.5-60.0 [facility] Comment on above: Performed By: #### C BC #### [facility] [address] [place] [address] Dr. Jessica Fall MANUAL DIFF REQ NO Normal [facility] Comment on above: Performed By: #### C BC #### [facility] [address] [place] [address] Dr. Jessica Fall MCH (RBC) [Entitic mass] 29.6 pg Normal 26.7-34.0 [facility] Comment on above: Performed By: #### C BC #### [facility] [address] [place] [address] Dr. Jessica Fall MCHC (RBC) [Mass/Vol] 33.6 g/dL Normal 29.9-35.2 [facility] Comment on above: Performed By: #### C BC #### [facility] [address] [place] [address] Dr. Jessica Fall MCV (RBC) [Entitic vol] 88.1 fL Normal 81.0-99.0 [facility] Comment on above: Performed By: #### C BC #### [facility] [address] [place] [address] Dr. Jessica Fall MONO # 0.7 103/ul Normal 0.3-0.8 [facility] Comment on above: Performed By: #### C BC #### [facility] [address] [place] [address] Dr. Jessica Fall Monocytes/100 WBC (Bld) 3.7 % Normal 1.7-12.0 [facility] Comment on above: Performed By: #### C BC #### [facility] [address] [address] [address] Jessica Fall NEUT # 15.6 103/ul Critically high 1.4-6.5 [facility] Comment on above: Performed By: #### C BC #### [facility] [address] [place] [address] Dr. Jessica Fall Neutrophils/100 WBC (Bld) 86.9 % Critically high 43.0-75.0 [facility] Comment on above: Performed By: #### C BC #### [facility] [address] [place] [address] Dr. Jessica Fall Platelet mean volume (Bld) [Entitic vol] 9.7 fL Normal 9.5-13.5 [facility] Comment on above: Performed By: #### C BC #### [facility] [address] [place] [address] Dr. Jessica Fall PLT 372 103/ul Normal 150-450 [facility] Comment on above: Performed By: #### C BC #### [facility] [address] [place] [address] Dr. Jessica Fall RBC 4.94 106/ul Normal 4.20-5.40 [facility] Comment on above: Performed By: #### C BC #### [facility] [address] [place] [address] Dr. Jessica Fall WBC 17.9 103/ul Critically high 4.0-11.0 [facility] Comment on above: Performed By: #### C BC #### [facility] [address] [place] [address] Dr. Jessica Fall PROF CHEM 8 (BAS METB)on Anion gap [Moles/Vol] 13.8 mmol/L Normal [facility] Comment on above: Performed By: #### B MP #### [facility] [address] [address] [address] Jessica Fall Calcium [Mass/Vol] 8.8 mg/dL Normal 8.5-10.1 [facility] Comment on above: Performed By: #### B MP #### [facility] [address] [address] [address] Jessica Fall Chloride [Moles/Vol] 104 mmol/L Normal 98-107 [facility] Comment on above: Performed By: #### B MP #### [facility] [address] [address] [address] Jessica Fall CO2 [Moles/Vol] 26.5 mmol/L Normal 21.0-32.0 [facility] Comment on above: Performed By: #### B MP #### [facility] [address] [address] [address] Jessica Fall Creatinine [Mass/Vol] 0.95 mg/dL Normal 0.55-1.02 [facility] Comment on above: Performed By: #### B MP #### [facility] [address] [address] [address] Jessica Fall EGFR-AF MAURITIAN >60 Normal >=60 [facility] Comment on above: Performed By: #### B MP #### [facility] [address] [address] [address] Jessica Fall EGFR-NON AF MAURITIAN 58 mL/min/1.73m2 Critically low >=60 [facility] Comment on above: Performed By: #### B MP #### [facility] [address] [address] [address] Jessica Fall Glucose [Mass/Vol] 246 mg/dL Critically high 74-106 [facility] Comment on above: Performed By: #### B MP #### [facility] [address] [address] [address] Jessica Fall Potassium [Moles/Vol] 4.3 mmol/L Normal 3.5-5.1 [facility] Comment on above: Performed By: #### B MP #### [facility] [address] [place] [address] Dr. Jessica Fall Sodium [Moles/Vol] 140 mmol/L Normal 136-145 [facility] Comment on above: Performed By: #### B MP #### [facility] [address] [place] [address] Dr. Jessica Fall Urea nitrogen [Mass/Vol] 19.0 mg/dL Critically high 7.0-18.0 [facility] Comment on above: Performed By: #### B MP #### [facility] [address] [place] [address] Dr. Jessica Fall Urea nitrogen/Creatinine [Mass ratio] 20.0 mg/mg Normal [facility] Comment on above: Performed By: #### B MP #### [facility] [address] [place] [address] Dr. Jessica Fall CBC AUTO DIFFon 12-10-2022 BASO # 0.0 103/ul Normal 0.0-0.1 [facility] Comment on above: Performed By: #### C BC #### [facility] [address] [place] [address] Dr. Jessica Fall Basophils/100 WBC (Bld) 0.2 % Normal 0.2-2.0 [facility] Comment on above: Performed By: #### C BC #### [facility] [address] [place] [address] Dr. Jessica Fall EO # 0.0 103/ul Normal 0.0-0.7 [facility] Comment on above: Performed By: #### C BC #### [facility] [address] [place] [address] Dr. Jessica Fall Eosinophils/100 WBC (Bld) 0.0 % Critically low 0.9-7.0 [facility] Comment on above: Performed By: #### C BC #### [facility] [address] [place] [address] Dr. Jessica Fall Erythrocyte distribution width (RBC) [Ratio] 14.2 % Normal 11.0-15.0 [facility] Comment on above: Performed By: #### C BC #### [facility] [address] [address] [address] Jessica Fall Hematocrit (Bld) [Volume fraction] 44.9 % Normal 36.0-48.0 [facility] Comment on above: Performed By: #### C BC #### [facility] [address] [place] [address] Dr. Jessica Fall Hemoglobin (Bld) [Mass/Vol] 14.9 g/dL Normal 12.0-16.0 [facility] Comment on above: Performed By: #### C BC #### [facility] [address] [place] [address] Dr. Jessica Fall IG # 0.08 10e3/ul Critically high 0.00-0.03 [facility] Comment on above: Performed By: #### C BC #### [facility] [address] [place] [address] Dr. Jessica Fall IG % 0.8 % Critically high 0.0-0.5 [facility] Comment on above: Performed By: #### C BC #### [facility] [address] [place] [address] Dr. Jessica Fall LYMPH # 1.3 103/ul Normal 1.2-3.8 [facility] Comment on above: Performed By: #### C BC #### [facility] [address] [place] [address] Dr. Jessica Fall Lymphocytes/100 WBC (Bld) 12.1 % Critically low 20.5-60.0 [facility] Comment on above: Performed By: #### C BC #### [facility] [address] [place] [address] Dr. Jessica Fall MANUAL DIFF REQ NO Normal [facility] Comment on above: Performed By: #### C BC #### [facility] [address] [place] [address] Dr. Jessica Fall MCH (RBC) [Entitic mass] 29.7 pg Normal 26.7-34.0 [facility] Comment on above: Performed By: #### C BC #### [facility] [address] [address] [address] Jessica Fall MCHC (RBC) [Mass/Vol] 33.2 g/dL Normal 29.9-35.2 [facility] Comment on above: Performed By: #### C BC #### [facility] [address] [address] [address] Jessica Fall MCV (RBC) [Entitic vol] 89.4 fL Normal 81.0-99.0 [facility] Comment on above: Performed By: #### C BC #### [facility] [address] [address] [address] Jessica Fall MONO # 0.1 103/ul Critically low 0.3-0.8 [facility] Comment on above: Performed By: #### C BC #### [facility] [address] [address] [address] Jessica Fall Monocytes/100 WBC (Bld) 1.2 % Critically low 1.7-12.0 [facility] Comment on above: Performed By: #### C BC #### [facility] [address] [address] [address] Jessica Fall NEUT # 8.9 103/ul Critically high 1.4-6.5 [facility] Comment on above: Performed By: #### C BC #### [facility] [address] [address] [address] Jessica Fall Neutrophils/100 WBC (Bld) 85.7 % Critically high 43.0-75.0 [facility] Comment on above: Performed By: #### C BC #### [facility] [address] [address] [address] Jessica Fall Platelet mean volume (Bld) [Entitic vol] 9.8 fL Normal 9.5-13.5 [facility] Comment on above: Performed By: #### C BC #### [facility] [address] [address] [address] Jessica Fall PLT 337 103/ul Normal 150-450 [facility] Comment on above: Performed By: #### C BC #### [facility] [address] [address] [address] Jessica Fall RBC 5.02 106/ul Normal 4.20-5.40 [facility] Comment on above: Performed By: #### C BC #### [facility] [address] [address] [address] Jessica Fall WBC 10.4 103/ul Normal 4.0-11.0 [facility] Comment on above: Performed By: #### C BC #### [facility] [address] [place] [address] Dr. Jessica Fall GLYCOHEMOGLOBIN A1Con 2022 ADA RECOMMENDATION SEE BELOW Normal [facility] Comment on above: Result Comment: ADA RECOMMENDED LIMIT 4.0 - 6.0 ADA THERAPEUTIC TARGET < 7.0 ACTION SUGGESTED > 7.0 Performed By: #### A 1C #### [facility] [address] [place] [address] Dr. Jessica Fall Glucose [Mass/Vol] 134 mg/dL Normal [facility] Comment on above: Performed By: #### A 1C #### [facility] [address] [place] [address] Dr. Jessica Fall HbA1c (Bld) [Mass fraction] 6.3 % Critically high 4.5-6.2 [facility] Comment on above: Performed By: #### A 1C #### [facility] [address] [place] [address] Dr. Jessica Fall PROF CHEM 8 (BAS METB)on Anion gap [Moles/Vol] 12.8 mmol/L Normal [facility] Comment on above: Performed By: #### C BC #### [facility] [address] [place] [address] Dr. Jessica Fall Calcium [Mass/Vol] 8.8 mg/dL Normal 8.5-10.1 [facility] Comment on above: Performed By: #### C BC #### [facility] [address] [place] [address] Dr. Jessica Fall Chloride [Moles/Vol] 102 mmol/L Normal 98-107 [facility] Comment on above: Performed By: #### C BC #### [facility] [address] [address] [address] Jessica Fall CO2 [Moles/Vol] 26.2 mmol/L Normal 21.0-32.0 [facility] Comment on above: Performed By: #### C BC #### [facility] [address] [address] [address] Jessica Fall Creatinine [Mass/Vol] 1.01 mg/dL Normal 0.55-1.02 [facility] Comment on above: Performed By: #### C BC #### [facility] [address] [address] [address] Jessica Fall EGFR-AF MAURITIAN >60 Normal >=60 [facility] Comment on above: Performed By: #### C BC #### [facility] [address] [address] [address] Jessica Fall EGFR-NON AF MAURITIAN 55 mL/min/1.73m2 Critically low >=60 [facility] Comment on above: Performed By: #### C BC #### [facility] [address] [address] [address] Jessica Fall Glucose [Mass/Vol] 219 mg/dL Critically high 74-106 [facility] Comment on above: Performed By: #### C BC #### [facility] [address] [address] [address] Jessica Fall Potassium [Moles/Vol] 4.0 mmol/L Normal 3.5-5.1 [facility] Comment on above: Performed By: #### C BC #### [facility] [address] [address] [address] Jessica Fall Sodium [Moles/Vol] 137 mmol/L Normal 136-145 [facility] Comment on above: Performed By: #### C BC #### [facility] [address] [address] [address] Jessica Fall Urea nitrogen [Mass/Vol] 22.0 mg/dL Critically high 7.0-18.0 [facility] Comment on above: Performed By: #### C BC #### [facility] [address] [place] [address] Dr. Jessica Fall Urea nitrogen/Creatinine [Mass ratio] 21.8 mg/mg Normal [facility] Comment on above: Performed By: #### C BC #### [facility] [address] [place] [address] Dr. Jessica Fall BNPon 12-09-2022 Natriuretic peptide B (Bld) [Mass/Vol] 77.0 pg/mL Normal <=900.0 [facility] Comment on above: Performed By: #### C BC #### [facility] [address] [place] [address] Dr. Jessica Fall CBC AUTO DIFFon 12-09-2022 BASO # 0.1 103/ul Normal 0.0-0.1 [facility] Comment on above: Performed By: #### C BC #### [facility] [address] [place] [address] Dr. Jessica Fall Basophils/100 WBC (Bld) 0.5 % Normal 0.2-2.0 [facility] Comment on above: Performed By: #### C BC #### [facility] [address] [place] [address] Dr. Jessica Fall EO # 0.1 103/ul Normal 0.0-0.7 [facility] Comment on above: Performed By: #### C BC #### [facility] [address] [place] [address] Dr. Jessica Fall Eosinophils/100 WBC (Bld) 0.5 % Critically low 0.9-7.0 [facility] Comment on above: Performed By: #### C BC #### [facility] [address] [place] [address] Dr. Jessica Fall Erythrocyte distribution width (RBC) [Ratio] 14.1 % Normal 11.0-15.0 [facility] Comment on above: Performed By: #### C BC #### [facility] [address] [place] [address] Dr. Jessica Fall Hematocrit (Bld) [Volume fraction] 46.5 % Normal 36.0-48.0 [facility] Comment on above: Performed By: #### C BC #### [facility] [address] [address] [address] Jessica Fall Hemoglobin (Bld) [Mass/Vol] 15.6 g/dL Normal 12.0-16.0 [facility] Comment on above: Performed By: #### C BC #### [facility] [address] [address] [address] Jessica Fall IG # 0.07 10e3/ul Critically high 0.00-0.03 [facility] Comment on above: Performed By: #### C BC #### [facility] [address] [place] [address] Dr. Jessica Fall IG % 0.6 % Critically high 0.0-0.5 [facility] Comment on above: Performed By: #### C BC #### [facility] [address] [place] [address] Dr. Jessica Fall LYMPH # 4.5 103/ul Critically high 1.2-3.8 [facility] Comment on above: Performed By: #### C BC #### [facility] [address] [place] [address] Dr. Jessica Fall Lymphocytes/100 WBC (Bld) 40.1 % Normal 20.5-60.0 [facility] Comment on above: Performed By: #### C BC #### [facility] [address] [place] [address] Dr. Jessica Fall MANUAL DIFF REQ NO Normal [facility] Comment on above: Performed By: #### C BC #### [facility] [address] [place] [address] Dr. Jessica Fall MCH (RBC) [Entitic mass] 29.7 pg Normal 26.7-34.0 [facility] Comment on above: Performed By: #### C BC #### [facility] [address] [place] [address] Dr. Jessica Fall MCHC (RBC) [Mass/Vol] 33.5 g/dL Normal 29.9-35.2 [facility] Comment on above: Performed By: #### C BC #### [facility] [address] [address] [address] Jessica Fall MCV (RBC) [Entitic vol] 88.4 fL Normal 81.0-99.0 [facility] Comment on above: Performed By: #### C BC #### [facility] [address] [address] [address] Jessica Fall MONO # 0.8 103/ul Normal 0.3-0.8 [facility] Comment on above: Performed By: #### C BC #### [facility] [address] [address] [address] Jessica Fall Monocytes/100 WBC (Bld) 7.0 % Normal 1.7-12.0 [facility] Comment on above: Performed By: #### C BC #### [facility] [address] [place] [address] Dr. Jessica Fall NEUT # 5.8 103/ul Normal 1.4-6.5 [facility] Comment on above: Performed By: #### C BC #### [facility] [address] [place] [address] Dr. Jessica Fall Neutrophils/100 WBC (Bld) 51.3 % Normal 43.0-75.0 [facility] Comment on above: Performed By: #### C BC #### [facility] [address] [place] [address] Dr. Jessica Fall Platelet mean volume (Bld) [Entitic vol] 9.4 fL Critically low 9.5-13.5 [facility] Comment on above: Performed By: #### C BC #### [facility] [address] [place] [address] Dr. Jessica Fall PLT 354 103/ul Normal 150-450 [facility] Comment on above: Performed By: #### C BC #### [facility] [address] [address] [address] Jessica Fall RBC 5.26 106/ul Normal 4.20-5.40 [facility] Comment on above: Performed By: #### C BC #### [facility] [address] [place], [place] [address] Dr. Jessica Fall WBC 11.3 103/ul Critically high 4.0-11.0 [facility] Comment on above: Performed By: #### C BC #### [facility] [address] [place], [place] [address] Dr. Jessica Fall CTA CHEST WO W [...] Dharmesh LOPEZ Date: 2022-12-09 21:04 Normal [facility] INFLUENZA A AND B AGon 12-09 INFLUANEGH SEE BELOW Normal [facility] Comment on above: Result Comment: Nega tive for Flu A protein angiten. Infection due to Flu A cannot be ruled out. Flu A angiten in the sample may be below the detection limit of the test. Performed By: #### D DIM #### [facility] [address] [place], [place] [address] Dr. Jessica Fall INFLUBNEGH SEE BELOW Normal [facility] Comment on above: Result Comment: Nega tive for Flu B protein antigen. Infection due to Flu B cannot be ruled out. Flu B antigen in the sample may be below the detection limit of the test. Performed By: #### D DIM #### [facility] [address] [place] [address] Dr. Jessica Fall INFLUENZA A AG Negative Normal NEGATIVE SEE COMMENT [facility] Comment on above: Performed By: #### D DIM #### [facility] [address] [place] [address] Dr. Jessica Fall INFLUENZA B AG Negative Normal NEGATIVE SEE COMMENT [facility] Comment on above: Performed By: #### D DIM #### [facility] [address] [place] [address] Dr. Jessica Fall PROF CHEM 8 (BAS METB)on Anion gap [Moles/Vol] 15.6 mmol/L Normal [facility] Comment on above: Performed By: #### C BC #### [facility] [address] [place] [address] Dr. Jessica Fall Calcium [Mass/Vol] 8.8 mg/dL Normal 8.5-10.1 [facility] Comment on above: Performed By: #### C BC #### [facility] [address] [place] [address] Dr. Jessica Fall Chloride [Moles/Vol] 104 mmol/L Normal 98-107 [facility] Comment on above: Performed By: #### C BC #### [facility] [address] [place] [address] Dr. Jessica Fall CO2 [Moles/Vol] 26.4 mmol/L Normal 21.0-32.0 [facility] Comment on above: Performed By: #### C BC #### [facility] [address] [place] [address] Dr. Jessica Fall Creatinine [Mass/Vol] 1.15 mg/dL Critically high 0.55-1.02 [facility] Comment on above: Performed By: #### C BC #### [facility] [address] [place] [address] Dr. Jessica Fall EGFR-AF MAURITIAN 57 mL/min/1.73m2 Critically low >=60 [facility] Comment on above: Performed By: #### C BC #### [facility] [address] [address] [address] Jessica Fall EGFR-NON AF MAURITIAN 47 mL/min/1.73m2 Critically low >=60 [facility] Comment on above: Performed By: #### C BC #### [facility] [address] [address] [address] Jessica Fall Glucose [Mass/Vol] 126 mg/dL Critically high 74-106 [facility] Comment on above: Performed By: #### C BC #### [facility] [address] [address] [address] Jessica Fall Potassium [Moles/Vol] 4.0 mmol/L Normal 3.5-5.1 [facility] Comment on above: Performed By: #### C BC #### [facility] [address] [address] [address] Jessica Fall Sodium [Moles/Vol] 142 mmol/L Normal 136-145 [facility] Comment on above: Performed By: #### C BC #### [facility] [address] [address] [address] Jessica Fall Urea nitrogen [Mass/Vol] 25.0 mg/dL Critically high 7.0-18.0 [facility] Comment on above: Performed By: #### C BC #### [facility] [address] [address] [address] Jessica Fall Urea nitrogen/Creatinine [Mass ratio] 21.7 mg/mg Normal [facility] Comment on above: Performed By: #### C BC #### [facility] [address] [address] [address] Jessica Fall RESPIRATORY PANEL PLUSon Adenovirus Not detected Normal NOT DETECTED [facility] Comment on above: Performed By: #### R SPLUS #### [facility] [address] [address] [address] Jessica Fall B. Parapertusis Not detected Normal NOT DETECTED [facility] Comment on above: Performed By: #### R SPLUS #### [facility] [address] [place] [address] Dr. Jessica Thomas Pertussis Not detected Normal NOT DETECTED [facility] Comment on above: Performed By: #### R SPLUS #### [facility] [address] [place] [address] Dr. Jessica Fall Chlamydia Pneumoniae Not detected Normal NOT DETECTED [facility] Comment on above: Performed By: #### R SPLUS #### [facility] [address] [place] [address] Dr. Jessica Fall Coronavirus 229E Not detected Normal NOT DETECTED [facility] Comment on above: Performed By: #### R SPLUS #### [facility] [address] [place] [address] Dr. Jessica Fall Coronavirus HKU1 Not detected Normal NOT DETECTED [facility] Comment on above: Performed By: #### R SPLUS #### [facility] [address] [place] [address] Dr. Jessica Fall Coronavirus NL63 Not detected Normal NOT DETECTED [facility] Comment on above: Performed By: #### R SPLUS #### [facility] [address] [place] [address] Dr. Jessica Fall Coronavirus OC43 Not detected Normal NOT DETECTED [facility] Comment on above: Performed By: #### R SPLUS #### [facility] [address] [place] [address] Dr. Jessica Fall Influenza A H1 Not detected Normal NOT DETECTED [facility] Comment on above: Performed By: #### R SPLUS #### [facility] [address] [place] [address] Dr. Jessica Fall Influenza A H1 2009 Not detected Normal NOT DETECTED [facility] Comment on above: Performed By: #### R SPLUS #### [facility] [address] [place] [address] Dr. Jessica Fall Influenza A H3 Not detected Normal NOT DETECTED [facility] Comment on above: Performed By: #### R SPLUS #### [facility] [address] [place] [address] Dr. Jessica Fall Influenza B Not detected Normal NOT DETECTED [facility] Comment on above: Performed By: #### R SPLUS #### [facility] [address] [place] [address] Dr. Jessica Fall Metapneumovirus Detected Abnormal NOT DETECTED [facility] Comment on above: Performed By: #### R SPLUS #### [facility] [address] [place] [address] Dr. Jessica Fall Mycoplas. Pneumoniae Not detected Normal NOT DETECTED [facility] Comment on above: Performed By: #### R SPLUS #### [facility] [address] [place] [address] Dr. Jessica Fall Parainfluenza 1 Not detected Normal NOT DETECTED [facility] Comment on above: Performed By: #### R SPLUS #### [facility] [address] [place] [address] Dr. Jessica Fall Parainfluenza 2 Not detected Normal NOT DETECTED [facility] Comment on above: Performed By: #### R SPLUS #### [facility] [address] [place] [address] Dr. Jessica Fall Parainfluenza 3 Not detected Normal NOT DETECTED [facility] Comment on above: Performed By: #### R SPLUS #### [facility] [address] [place] [address] Dr. Jessica Fall Parainfluenza 4 Not detected Normal NOT DETECTED [facility] Comment on above: Performed By: #### R SPLUS #### [facility] [address] [place] [address] Dr. Jessica Fall Rhino/Enterovirus Not detected Normal NOT DETECTED [facility] Comment on above: Performed By: #### R SPLUS #### [facility] [address] [place] [address] Dr. Jessica POP Header 1 RESPIRATORY PANEL: VIRUSES Normal [facility] Comment on above: Performed By: #### R SPLUS #### [facility] [address] [place] [address] Dr. Jessica POP Header 2 RESPIRATORY PANEL: BACTERIA Normal [facility] Comment on above: Performed By: #### R SPLUS #### [facility] [address] [address] [address] Jessica Fall RSV Not detected Normal NOT DETECTED [facility] Comment on above: Performed By: #### R SPLUS #### [facility] [address] [place], [place] [address] Dr. Jessica Fall SARS-CoV-2 (COVID-19) RNA NORAH+probe Ql (Unsp spec) Not detected Normal NOT DETECTED [facility] Comment on above: Performed By: #### R SPLUS #### [facility] [address] [address] [address] Jessica Fall TROPONIN, HIGH SENSITIVITYon 12-09-2022 HSTROP 9.3 pg/mL Normal 4.0-51.3 [facility] Comment on above: Result Comment: CUT- OFF POINTS HAVE BEEN ESTABLISHED BASED ON THE FOURTH UNIVERSAL DEFINITIONS OF MYOCARDIAL INFARCTION. THE UPPER REFERENCE LIMIT (URL) OF TROPONIN, DEFINED THE 99TH PERCENTILE OF cTnI DISTRIBUTION IN A REFERENCE POPULATION, HAS BEEN CONFIRMED THE DECISION THRESHOLD FOR IN DIAGNOSIS. Performed By: #### C BC #### [facility] [address] [address] [address] Jessica Fall XR CHEST 1 Von [...] by: Dharmesh LOPEZ Date: 2022-12-09 18:44 Normal [facility] COVID + FLU Quick Testingon 12-03-2022 SARS-CoV-2 (COVID-19) RNA NORAH+probe Ql (Unsp spec) Negative [employer] Other COVID + FLU Quick Testing Negative [employer] Other Urine culture routineOrdered By: DAYANNA SCHUMACHER on 08-12-2022 Bacteria identified Cx Nom (U) Escherichia coli [facility] COVID Quick Testingon 2021 Result Positive [employer] Other XR HIP GENERAL 3V PELV/AP/LA T LEFTon 03-23-2022 [facility] XR Pelvis and Hip - left AP and Lateral frogon 03-23-2022 IMPRESSION: No appreciable change in the advanced left hip degenerative arthritis. Home Visitor: [employer] Transcribe Date/Time: Mar 23 2022 4:32P Dictated by : LESA LESTER MD This examination was interpreted and the report reviewed and electronically signed by: LESA LSETER MD on Mar 23 2022 4:34PM EST [email or web address]_US E_DIVISION OF RADIOLOGY * * *Final Report* * * DATE OF EXAM: Mar 23 2022 4:02PM [id number] 5351 - XR HIP 3V PELV+ AP/LAT LT / PROCEDURE REASON: Primary osteoarthritis of left hip * * * * Physician Interpretation * * * * HISTORY: Primary osteoarthritis of left hip . TECHNIQUE: XR HIP 3V PELV+ AP/LAT LT Laterality: LEFT Number of different views (projections): 3 COMPARISON: Outside radiographs dated 08/24/2021 RESULT: There is partial visualization of the spinal fusion hardware. There is no acute fracture or dislocation. There has been no appreciable change in the left hip degenerative arthritis with marked joint space narrowing and marginal osteophytes. No other significant abnormality. [email or web address] E_DIVISION OF RADIOLOGY Provider, Chance Holliday - 03/23/2022 * * *Final Report* * * DATE OF EXAM: Mar 23 2022 4:02PM LZX 5351 - XR HIP 3V PELV+ AP/LAT LT / PROCEDURE REASON: Primary osteoarthritis of left hip * * * * Physician Interpretation * * * * HISTORY: Primary osteoarthritis of left hip . TECHNIQUE: XR HIP 3V PELV+ AP/LAT LT Laterality: LEFT Number of different views (projections): 3 COMPARISON: Outside radiographs dated 08/24/2021 RESULT: There is partial visualization of the spinal fusion hardware. There is no acute fracture or dislocation. There has been no appreciable change in the left hip degenerative arthritis with marked joint space narrowing and marginal osteophytes. No other significant abnormality. IMPRESSION IMPRESSION: No appreciable change in the advanced left hip degenerative arthritis. Home Visitor: [employer] Transcribe Date/Time: Mar 23 2022 4:32P Dictated by : LESA LESTER MD This examination was interpreted and the report reviewed and electronically signed by: LESA LESTER MD on Mar 23 2022 4:34PM EST [facility] Radiology Study observation (narrative) [facility] XR Pelvis and Hip - left AP and Lateral frogOrdered By: Ccf Provider on 03-23-2022 [facility] CARDIAC JALEEL 3-6on 2 CK [Catalytic activity/Vol] 57 U/L Normal 26-192 [facility] Comment on above: Performed By: #### C BC #### [facility] [address] [place] [address] Dr. Jessica Fall CK.MB [Mass/Vol] 0.63 ng/mL Normal <=3.60 [facility] Comment on above: Performed By: #### C BC #### [facility] [address] [address] [address] Jessica Fall HSTROP 9.7 pg/mL Normal 4.0-51.3 [facility] Comment on above: Result Comment: CUT- OFF POINTS HAVE BEEN ESTABLISHED BASED ON THE FOURTH UNIVERSAL DEFINITIONS OF MYOCARDIAL INFARCTION. THE UPPER REFERENCE LIMIT (URL) OF TROPONIN, DEFINED THE 99TH PERCENTILE OF cTnI DISTRIBUTION IN A REFERENCE POPULATION, HAS BEEN CONFIRMED THE DECISION THRESHOLD FOR IN DIAGNOSIS. Performed By: #### C BC #### [facility] [address] [address] [address] CSPINE WO CONon 2 CT CSPINE WO CON EXAM: CT VLADISLAV WO C ON 03/14/2022 12:42 AM EDT [...] by: CHRISTINE AVILES Date: 2022-03-14 01:54 Normal [facility] CT HEAD WO CONon 03-14-2022 CT [...] by: Palomo RAM Date: 2022-03-14 03:31 Normal [facility] CT TSPINE WO CONon 2 CT [...] by: RAKESH SOLARES Date: 2022-03-14 03:40 Normal [facility] CTA CHEST WO W CONon 022 [...] GABBY GREY Date: 2022-03-13 22:22 Normal [facility] Covid-19 PCR (CVDTB)on 02-24 SARS-CoV-2 (COVID-19) RNA NORAH+probe Ql (Unsp spec) Not detected Normal NOT DETECTED [facility] Comment on above: Result Comment: When diagnostic [...] for this test is supported by the [place] of [employer] and Human Service's declaration that [...] used). Performed By: #### C VDTBH #### [facility] [address] [place] [address] Dr. Jessica Fall BNPon 03-13-2022 Natriuretic peptide B (Bld) [Mass/Vol] 87.0 pg/mL Normal <=900.0 [facility] Comment on above: Performed By: #### C MP, BNP, HSTROPN #### [facility] [address] [place] [address] Dr. Jessica Fall CARDIAC JALEEL 3-6on 2 CK [Catalytic activity/Vol] 61 U/L Normal 26-192 [facility] Comment on above: Performed By: #### D DIM #### [facility] [address] [place] [address] Dr. Jessica Fall CK.MB [Mass/Vol] 0.57 ng/mL Normal <=3.60 [facility] Comment on above: Performed By: #### D DIM #### [facility] [address] [place] [address] Dr. Jessica Fall HSTROP 8.9 pg/mL Normal 4.0-51.3 [facility] Comment on above: Result Comment: CUT- OFF POINTS HAVE BEEN ESTABLISHED BASED ON THE FOURTH UNIVERSAL DEFINITIONS OF MYOCARDIAL INFARCTION. THE UPPER REFERENCE LIMIT (URL) OF TROPONIN, DEFINED THE 99TH PERCENTILE OF cTnI DISTRIBUTION IN A REFERENCE POPULATION, HAS BEEN CONFIRMED THE DECISION THRESHOLD FOR IN DIAGNOSIS. Performed By: #### D DIM #### [facility] [address] [place] [address] Dr. Jessica Fall CBC AUTO DIFFon 03-13-2022 BASO # 0.1 103/ul Normal 0.0-0.1 [facility] Comment on above: Performed By: #### C BC #### [facility] [address] [place] [address] Dr. Jessica Fall Basophils/100 WBC (Bld) 0.6 % Normal 0.2-2.0 [facility] Comment on above: Performed By: #### C BC #### [facility] [address] [place] [address] Dr. Jessica Fall EO # 0.2 103/ul Normal 0.0-0.7 [facility] Comment on above: Performed By: #### C BC #### [facility] [address] [place] [address] Dr. Jessica Fall Eosinophils/100 WBC (Bld) 2.6 % Normal 0.9-7.0 [facility] Comment on above: Performed By: #### C BC #### [facility] [address] [place] [address] Dr. Jessica Fall Erythrocyte distribution width (RBC) [Ratio] 13.3 % Normal 11.0-15.0 [facility] Comment on above: Performed By: #### C BC #### [facility] [address] [place] [address] Dr. Jessica Fall Hematocrit (Bld) [Volume fraction] 44.1 % Normal 36.0-48.0 [facility] Comment on above: Performed By: #### C BC #### [facility] [address] [place] [address] Dr. Jessica Fall Hemoglobin (Bld) [Mass/Vol] 14.6 g/dL Normal 12.0-16.0 [facility] Comment on above: Performed By: #### C BC #### [facility] [address] [place] [address] Dr. Jessica Fall IG # 0.02 10e3/ul Normal 0.00-0.03 [facility] Comment on above: Performed By: #### C BC #### [facility] [address] [place] [address] Dr. Jessica Fall IG % 0.2 % Normal 0.0-0.5 [facility] Comment on above: Performed By: #### C BC #### [facility] [address] [place] [address] Dr. Jessica Fall LYMPH # 2.5 103/ul Normal 1.2-3.8 [facility] Comment on above: Performed By: #### C BC #### [facility] [address] [place] [address] Dr. Jessica Fall Lymphocytes/100 WBC (Bld) 28.8 % Normal 20.5-60.0 [facility] Comment on above: Performed By: #### C BC #### [facility] [address] [place] [address] Dr. Jessica Fall MANUAL DIFF REQ NO [facility] Comment on above: Performed By: #### C BC #### [facility] [address] [place] [address] Dr. Jessica Fall MCH (RBC) [Entitic mass] 30.2 pg Normal 26.7-34.0 [facility] Comment on above: Performed By: #### C BC #### [facility] [address] [place] [address] Dr. Jessica Fall MCHC (RBC) [Mass/Vol] 33.1 g/dL Normal 29.9-35.2 [facility] Comment on above: Performed By: #### C BC #### [facility] [address] [place] [address] Dr. Jessica Fall MCV (RBC) [Entitic vol] 91.1 fL Normal 81.0-99.0 [facility] Comment on above: Performed By: #### C BC #### [facility] [address] [place] [address] Dr. Jessica Fall MONO # 0.8 103/ul Normal 0.3-0.8 [facility] Comment on above: Performed By: #### C BC #### [facility] [address] [place] [address] Dr. Jessica Fall Monocytes/100 WBC (Bld) 8.8 % Normal 1.7-12.0 [facility] Comment on above: Performed By: #### C BC #### [facility] [address] [place] [address] Dr. Jessica Fall NEUT # 5.2 103/ul Normal 1.4-6.5 [facility] Comment on above: Performed By: #### C BC #### [facility] [address] [address] [address] Jessica Fall Neutrophils/100 WBC (Bld) 59.0 % Normal 43.0-75.0 [facility] Comment on above: Performed By: #### C BC #### [facility] [address] [address] [address] Jessica Fall Platelet mean volume (Bld) [Entitic vol] 10.1 fL Normal 9.5-13.5 [facility] Comment on above: Performed By: #### C BC #### [facility] [address] [place] [address] Dr. Jessica Fall PLT 301 103/ul Normal 150-450 [facility] Comment on above: Performed By: #### C BC #### [facility] [address] [place] [address] Dr. Jessica Fall RBC 4.84 106/ul Normal 4.20-5.40 [facility] Comment on above: Performed By: #### C BC #### [facility] [address] [address] [address] Jessica Fall WBC 8.8 103/ul Normal 4.0-11.0 [facility] Comment on above: Performed By: #### C BC #### [facility] [address] [place] [address] Dr. Jessica Fall D-DIMERon 03-13-2022 D-DIMER 0.82 mg/L FEU Critically high <=0.59 [facility] Comment on above: Performed By: #### D DIM #### [facility] [address] [place] [address] Dr. Jessica Fall D-DIMER COMMENTS SEE BELOW Normal [facility] Comment on above: Result Comment: Incr [...] hospitalization. Performed By: #### D DIM #### [facility] [address] [place] [address] Dr. Jessica Fall PROF 14(COMP METB)on 022 Albumin [Mass/Vol] 3.7 g/dL Normal 3.4-5.0 [facility] Comment on above: Performed By: #### C MP, BNP, HSTROPN #### [facility] [address] [place] [address] Dr. Jessica Fall Albumin/Globulin [Mass ratio] 1.1 {ratio} Normal [facility] Comment on above: Performed By: #### C MP, BNP, HSTROPN #### [facility] [address] [place] [address] Dr. Jessica Fall ALP [Catalytic activity/Vol] 94 U/L Normal 46-116 [facility] Comment on above: Performed By: #### C MP, BNP, HSTROPN #### [facility] [address] [place] [address] Dr. Jessica Fall ALT [Catalytic activity/Vol] 50 U/L Normal 14-59 [facility] Comment on above: Performed By: #### C MP, BNP, HSTROPN #### [facility] [address] [place] [address] Dr. Jessica Fall Anion gap [Moles/Vol] 14.1 mmol/L Normal [facility] Comment on above: Performed By: #### C MP, BNP, HSTROPN #### [facility] [address] [place] [address] Dr. Jessica Fall AST [Catalytic activity/Vol] 18 U/L Normal 15-37 [facility] Comment on above: Performed By: #### C MP, BNP, HSTROPN #### [facility] [address] [place] [address] Dr. Jessica Fall Bilirubin [Mass/Vol] 0.4 mg/dL Normal 0.2-1.0 [facility] Comment on above: Performed By: #### C MP, BNP, HSTROPN #### [facility] [address] [place] [address] Dr. Jessica Fall Calcium [Mass/Vol] 9.0 mg/dL Normal 8.5-10.1 [facility] Comment on above: Performed By: #### C MP, BNP, HSTROPN #### [facility] [address] [place] [address] Dr. Jessica Fall Chloride [Moles/Vol] 103 mmol/L Normal 98-107 [facility] Comment on above: Performed By: #### C MP, BNP, HSTROPN #### [facility] [address] [place] [address] Dr. Jessica Fall CO2 [Moles/Vol] 26.7 mmol/L Normal 21.0-32.0 [facility] Comment on above: Performed By: #### C MP, BNP, HSTROPN #### [facility] [address] [place] [address] Dr. Jessica Fall Creatinine [Mass/Vol] 1.17 mg/dL Critically high 0.55-1.02 [facility] Comment on above: Performed By: #### C MP, BNP, HSTROPN #### [facility] [address] [place] [address] Dr. Jessica Fall EGFR-AF MAURITIAN 56 mL/min/1.73m2 Critically low >=60 [facility] Comment on above: Performed By: #### C MP, BNP, HSTROPN #### [facility] [address] [place] [address] Dr. Jessica Fall EGFR-NON AF MAURITIAN 46 mL/min/1.73m2 Critically low >=60 [facility] Comment on above: Performed By: #### C MP, BNP, HSTROPN #### [facility] [address] [place] [address] Dr. Jessica Fall Globulin (S) [Mass/Vol] 3.4 g/dL Normal [facility] Comment on above: Performed By: #### C MP, BNP, HSTROPN #### [facility] [address] [place] [address] Dr. Jessica Fall Glucose [Mass/Vol] 132 mg/dL Critically high 74-106 [facility] Comment on above: Performed By: #### C MP, BNP, HSTROPN #### [facility] [address] [place] [address] Dr. Jessica Fall Potassium [Moles/Vol] 3.8 mmol/L Normal 3.5-5.1 [facility] Comment on above: Performed By: #### C MP, BNP, HSTROPN #### [facility] [address] [place] [address] Dr. Jessica Fall Protein [Mass/Vol] 7.1 g/dL Normal 6.4-8.2 [facility] Comment on above: Performed By: #### C MP, BNP, HSTROPN #### [facility] [address] [place] [address] Dr. Jessica Fall Sodium [Moles/Vol] 140 mmol/L Normal 136-145 [facility] Comment on above: Performed By: #### C MP, BNP, HSTROPN #### [facility] [address] [place] [address] Dr. Jessica Fall Urea nitrogen [Mass/Vol] 17.0 mg/dL Normal 7.0-18.0 [facility] Comment on above: Performed By: #### C MP, BNP, HSTROPN #### [facility] [address] [place] [address] Dr. Jessica Fall Urea nitrogen/Creatinine [Mass ratio] 14.5 mg/mg Normal [facility] Comment on above: Performed By: #### C MP, BNP, HSTROPN #### [facility] [address] [place] [address] Dr. Jessica Fall TROPONIN, HIGH SENSITIVITYon 03-13-2022 HSTROP 8.1 pg/mL Normal 4.0-51.3 [facility] Comment on above: Result Comment: CUT- OFF POINTS HAVE BEEN ESTABLISHED BASED ON THE FOURTH UNIVERSAL DEFINITIONS OF MYOCARDIAL INFARCTION. THE UPPER REFERENCE LIMIT (URL) OF TROPONIN, DEFINED THE 99TH PERCENTILE OF cTnI DISTRIBUTION IN A REFERENCE POPULATION, HAS BEEN CONFIRMED THE DECISION THRESHOLD FOR IN DIAGNOSIS. Performed By: #### C MP, BNP, HSTROPN #### [facility] [address] [place], [place] [address] Dr. Jessica Fall XR CHEST 1 Von [...] CRISTINA FARIAS Date: 2022-03-13 19:44 Normal [facility] SCREENING MAMMOGRAM W/SLUMA, BILATERAL*on 02-08-2022 SCREENING MAMMOGRAM W/SULMA, BILATERAL* COMPARISON: [...] Visible on only one projection. Asymmetries that last turner to be summation artifact are benign (BI-RADS 2). The BI-RADS [place] offers guidance regarding the other categories of [...] VERY IMPORTANT TO YOUR HEALTH. THE CURRENT [place] [employer] AND [employer] GUIDELINES RECOMMENDS ANNUAL MAMMOGRAPHY BEGINNING AT AGE 40 THIS FACILITY USES A REMINDER SYSTEM TO ENSURE ALL PATIENTS RECEIVE REMINDER NOTIFICATIONS AT THE APPROPRIATE TIME BASED ON THE RECOMMENDATIONS OF THIS EXAM. Report reported and signed by Crow Tompkins on 02/09/2022 0728 Normal [facility] Gunnery/Ordnance Officer XR Chest 2 Views*on 08-24-20 21 XR [...] Crow Tompkins on 08/28/2021 0724 Normal [facility] Gunnery/Ordnance Officer XR Hip Complete Left*on 07-28 XR Hip [...] Crow Tompkins on 08/28/2021 0727 Normal [facility] Gunnery/Ordnance Officer Reminderson 08-02-2021 Reminders - From: Jeannie Patten To: Yessi Brown; Sent: 07/03/2021 12:02:12 EST Show up: 07/17/2021 12:01:00 EST Subject: Reminder Message Reminder Message Please Remember to:_ PATIENT RELATED REMINDER:_ ( X ) Call Patient to schedule Renal US prior to next appointment at [facility] (08/02/2021) ( ) Ask Patient to ( ) Call Relative ( ) Schedule Patient ( ) Follow up on Results ( ) Other: PROVIDER RELATED REMINDER:_ ( ) 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 [id number] Gh0bWw +PGhlYWQ+TM5UOQRjF87nuSYeq S0TG8nVEV4KTBFYOCXQRS6TEL0 fpTL9QEikK9MbdhEv YhagqWPiRC69JUl3HGC5sWwcXG nvgH1qhEDiU5h4ZlQfHN51cW59 DTzrMKCoWrD0WoWflgkruVVg G9abCaJvoFOsYsw+PHRhYmxlIH siSBEhZGfcBOJzCrLkkRauTC1q Ms1pZKPqRYUlkIfxpPBaCaBf h8enNFXpTMbdYN5cnBgiY3UnsO G2UMTbl0a5Fr94mSG+PHRkIHN0 gPxcASglz274NmVye5qlFND0 oOVvVOzwATR6S59jr6L8PPWkXG KrGAO2oRZ1rY6apQieoahbO5Ng zWKhDkA3WGU5yUQbpZ5yqBid sltacC0uZnd+O78QBO8OREAZHX 4FSlg1K5VhBcmxgHV+FB70YLUs TG83qGNdsHUjo9hgrYb1EzMm FHSdQYP9jZwcSYaoa6MrWUZaF7 5znBZed5D3LRThvIamyRXjQmWr qTU6hL4cUEphzcbld3fxkddn Jewjw4posp81kB13A91eRNnrOQ LlWNI8DBNtHIFfkVroni5wlS9f Ii8+SMtaf0hdt5zkkLe2DvJw NMTvmjGhfYswWHC7g8KdAl04Z3 WgeSqfi6DrHxc1wz26nQWmk3O9 oMR5PGikFJBwbS9rZLhkSbO4 TBOmIlExoI69pZMmNBeqKi5udP tgeDhqMC1zEQHqwnzxXZOftR1h VLIxdDTahUhxSX7qULWabafc o145GiUdGFL3NUYtwIEgO7XshJ 9jIpDeEXJhTEBhX2GbsFOsDPqm E909KRzgTfZ6QYSnhyPkO0Dj MTDvnImkToZ8b9I5Uu8Hx8Kskq nzNIE3VVdbUYHkOuXeUtHzOoU0 X4XhHgr2IFAuqTzvFL7cU1Fm MWRnpcvveacjbLB9ZVAyNTFoiL 08cFNlDHmdTi2tx2Z1q124OXJg TACvfT12Wq8bhRixSCPwnEET wG5zuladc4rpgvvfTjFqHEIjZP e5XRd7PCYdoVhhEjSjJOL8FtC2 YVM9zCScyM9xuGrygcqxtL0i Oyc+U65kgP6yZKR8PDQ7crsjJW VdifJmTX12JW59U2KkZrbnzNYd bGU+WPHmbvHdxNuhMO2nLzBl b5xfb3AkGYqwV5DvCPOcBHbjKe s6TZFrQJV8xUT9uN0vKXHySPly x7K4mLY9C8GsoeJogq1eg3nc CIRxDXugP82srUVds1O3TASnwH V3HRXroWhiLdTcjY78Rkl+PGNv fKmko9PdZzcxj3oqw4spiIg0 SvNkMZIewxWvnEfdXWQ2r0UwWr 54A21kPZltEAOnTIKzQVWrZLDg uZxiwm1hyH9qSz7+PGNvbCB3 iRS7tF0vKZPkQaM8QDtdE233Tc XmuJIpOsgis5bbq8myhSh9SnTv YIGxfiWesCaaHTF4p1OqUx83 J34oXHolSETvDDQyFBGsVCGhuD hodf0asA8ySv2+BZ6hz0qlzj82 gR50wIC+BNVbGOE7fFjbXAkh DCOwcZ6cBXwyMrS0TIGdKyMofV 28wDYrKQntRd6yrLcukDdnFZ6v XNDwbzjep824XmIvz5kjVEQf tHKxJAmqTZF2F38jj6J1KKImJO BaNIP7tQF7hS0gtIhjlitlnLLw zBlhufVgmUodNIenPFvfS003 IHRvcDsnPlBhdGllbnQgTmFtZT u9G6XqMum1ADPwjUdiQJ5chEHe JQaxMl5irRzmxYfsKN6qQBJm uatif972IqCpu0clNAMiyNYhON oeZGD0E03uk2O9FTMnLXFfFEL7 rNM4rH1nvDwetxhemYBmaSrg sfBrhAelTTbnUBuhR414EGAgkH gvYiWeujHgPTQdvQU6YE38SO90 kOCun5M2aSL8I9IqHDZuepte ychepHL4NMBqGLTnoE83Cl7ueA kfOf9xFHNkBOF6GZDzvBHwG7Tw iM0tLwRiZCFtRPSdD6UexRYe YOwaY868ZRubYnH4PIGkjxVjR1 FrEXNtnLbjNfY3z9F9Bi5UB5U9 YR69OL87vGKlr8C5wPW6N7Ii SNOulctubskptVN0FDIwENWisC 30Xd3rdQraFi3lSCSyULQ1PFZy mJSmY4NtzE2gPwFjDMYyFBRi Y2YokOYtRWjgD631UZeyVdI4TJ UphcInF8OnNBAimAgpIpV9n9S2 Rp6JWVg9ES90FS48jTKwk6Y5 jJI5G5NsKYYkvbyncvnkiPO2VP ElQPIinC75Ui9vnFkuSk4qNOHs VJP2BFCukCMnZ3PkeK9yMkIg CAZkWCIeB6NuyPRxOQwkQ967UE atArF8TWMncnNcK6WvOLBzqMuh IxU6u2U5Jg4TQQOgUE33USP7 wPG1HY80QW89Y1XvAgysvDOfhR U+PHRhYmxlIHdpZHRoPScxMDAl OwKgyKavGJ8gGl5xENOyTPCw oOajyLXyAqWhh1omQJZhTQhfDX 7ssGkdI2KydEN7HRZes4z5Fp71 E70tN7UpjKQ+BSTcaUW5cUA8 iG9eQuXgDcA4EIzwX384ZiWlkA XkCepru8vyo7dntTv6SnX9BQLv cySkxSthYNH5r3JtOo40B67d IHdpZHRoPSIxNSUiIHZhbGlnbj 0aiY3cGx4+THIltHR9tMC7dK5b SgFdQoC0YRwpU850CjGbtBUp Siqdb5fqt2jkvQc7AdSgPYJado EfyCxuYTM9n0RlBt51Y9QusJqx s5VeHzj5cj06iKOji9I7nIX5 X9JyFLOauczucGObnCtqHZ2fRZ OrxrkqKUJclR9nCPGhZ8n1FyLi TpY4MKvbK4IuvmC5XQWaaBFq YOafYCY7K74ze6L7PZRuBSMhDI G6dRC3cG3itHenzjabgJTtxUkv arTvnOfbOXwgSZuxV336MYVf gTacKTRpfD7rBIGncOAucOjsRA 4wNTBpbjsnPldPTExFTlNMRUdF TCwgRElBTkEgSjwvdGQ+PHRk TES7xDwzROolBFTlvQ4eSJItM3 e3GrOeFrN1XHdiC9SsXGRbuzrc Zk09eJ5hOeMrYjG8BMsqS8Wp xkO9JRVxoJHrETanRVG5F75jk5 S5BWZdFQMoWUD1zLK1vQ7xuToo bjogbGVmdDsgdmVydGljYWwt ICyuK048HLPhwTqmKnVmKvLzIn T5JUD0T8SaGsw0BERavRnmGB3h xFPkRMaoSu9lbWqnnTuzGP1f UONfohohWTZtpP9oINPffKTesL ljWQ4sAAAdbnywr192ClPuTER8 OXMuiGYiL8JtpB2jBhJhHDIi VKLfD4FfdSGwQQjaJ659WQomMs M0HBSdryQrA8CwRLMweEbzClZ7 h1X4Eq63HzMUXKEewgodxWE+ TUJeXJM8lYllBHaeBHYaoB0vCO LdP1t1DsSxFgT5OOdqP4IbGTYy wfgjAj79gP4tOqFjCzZ9YMtz D0XqbsJ7OBAevXNhBJdaINT6Z6 9nn5D8EQMeSENbVFO3rEL5lV6j bGlnbjogbGVmdDsgdmVydGlj AHapJDmaG235PXTmxUpcTiIofT FsZTwvdGQ+QEHlZJI3bGnfZRuk VRAdgV6yDWLiS6d2ZvHqPqY1 TQdxT4PvLRLmudmzYz19lI4mDx BgBiD0YUnxB0XwegZ8CAZwgQBv RMjcUWM5H63cf6C0TBMuFRSe AYW6uGY4wN7ilPcrlibaaQGrfI ytkkHyfOnvXBxxZKiiK559SAXu wJidKx3xq9TrlqP2lP6nWS79 TL14O7WuZdvvbYNkeDG+PHRhYm xlIHdpZHRoPScxMDAlJyBzdHls TV7fOp7pMRDfYLCfuPycmOEn GwKve8hhXDRqCCfiQT1crFvtX7 AqiJE7ETGvu2r5As46T57wB4Iv dXA+KCHkgRC6cLT2aT8qVmQi WwZ4TRmsM325NhPlsSTyAhnnq2 aoh9skzZv1GxOeRDKwgzDswFdp RAL4h8LvTm56U06hYGbsBWZm ICIaANUxUTNpoHbmnl1xjD3uTo 8+VEMwhQI2iWL4bB4wQbTtBrL6 FMxpL701TsFxfPRrPeygK87v W6ViqOQ+RWEhEoc0JKGwgAvoCH 9jrJJoCYslVo3lRHV1XrZeIgZx SOryU1CnAHOvorrzqgmhmAT3 KZFyTDUfpG06Aa8afWxqSo6mHA GxTIF8PASwmRAhD3UwlH4mUbMz QQCoEGMkF5JdhEKrTWecA106 LCtqFmU7UFBboyZaE5UfDOVxjN hnFdI8r2W0Bw3CmUqaaGGtUT3y YzUmYVl9N6TrTha1TKFthTrw RZ7glVReMEkaRt7bjCkeqPckJO 6dGLPfivgtf849FuBgu2beCBXg nUCeEOhzWLL5E06hj5M9YSUh PVDrHTI6vSL3hN0anBkzkcvxuJ JucXevuyFzzLvyGAixVShnY998 WUMuuWfqDfEYEcm0D6AuEgn3 LZGtmKskZV4tsQOiDYmgEc3pzV dfqGeyII6aAYOjqjlfv705ElCw f1jkSUIlwAAlVMkwXMZ9N81j k5B2EMLfMIGxFLK8eGT8kW7uxB lnbjogbGVmdDsgdmVydGljYWwt ACyuY956ZYHtwDxsFt8JPhx4 V8ZzZhp6CKXetKdbSK2jvDVpKH hfBq7igAxftQwlZU1uDACnxiev i537LhXrn7yrCMEivBMvJQiu JAC9N80fu0L6RQFkMSVzXOJ3bE S2hU2qhRlghpsrsGUegCubxaUt cUiiKJwtVDwaG872IZRxxGvb PlBheWVyOjwvdGQ+TP40uh30O5 CzAwhqGsm0MBLkAXK1zRD9lE6u DIVsPGslx0W1sVT0W0YypiXc ci1j (more content not included)... [facility] Coding Summary. CD:[id number]:[id number] Gh0bWw +PGhlYWQ+ES8NFGOuY91ueKRav Y8VI5lNUY8LAZWQALBWST7PHN2 ocHL6ZOmbY5BgnqHb XiplwWGkAY36POh4KDZ5cNfjXX zgaR5hjYHlP8h8XfXxEJ33pA66 KEssCJDqGdH5RwWsuvccpHQg P1ybUvUzpMLaEja+PHRhYmxlIH stYLShTMxrLSYeJlMqeNxwHL0s Zv3vOHVyRVTlaTebcFEfVgXu w8utKYGbJUekHU4ysIapW5GipM X8ZPOzm2k2Gm62bBC+PHRkIHN0 iRvcQGypo212VwMtk4wgRPD9 dEMqDDigLSV6Y28uj3M8XXWuAY ExODA9oKA0sA9zgZbfcbfoD4Rb eHIvUfG4LPG0yXLoyI4yqEla rmcaeA3mVly+H14NKB9UFRWHQF 7ZDkh6T1McPpheyPG+HZ39LRNo GP68tJCbaEJdy6tkaGg8XlWg NIPqSPE0fZwuUWpho1ZwMHMlF1 2yhNKeb4L9UVVeoCditOUtFzDe oIH0gM7zTAxrumday3fxzlgd Biwsh9fmbf79xO32D56eABgdEI QsFUQ9MONtYHLzhAyqrf3gkD9r Ii8+MXkgz8tdk2zpoYd5BiAa MVThxpBjzRcsCCN2k0EaZx84U0 NwqUknv4OeGdx8fc03bULvl5I2 hOP2TEjhXOXkyA4hAIwoRoA3 TIVvKhUswF98wTQgANbpUu7ckQ wfhRwaRK9mLIQbqcduPCGzwO6p GGQuePFywDphSA4qQLJudjqp o860ZaPvFRY5ZYCjsZXlP5DiqV 0lBhJuJSKgZCLuU3LdrXKqXIbu V299PNcqZaZ9IYOrgbTwB1Nt KUMegRmmAfY2f4R9Ie5Li2Adso toFOF4ZUrvSIEbExE6NmMwBwZ5 X8HdMvj3UWZwnNtgGB0kM9Ox UURbiddkafaojRZ3NRDyGLNesM 69pWPsYNdcPp0un2L4n711PEVq SFKxxG99Iv2dqBcoXDXlhNZS vU4gzcbds6nwjwqsFsNoSETxXZ j8UAa8GUYdkAbnOeJiFTQ9WeP8 JXY6cKXijE6gzFkeiphmzN1y Oyc+I58kmB0dXCS5PTN9mvvkFD PubhWmTN19TW73T4KqTlmyvWQe bGU+AXYslpLwmVzfDO6yVwXc t6ifu7CoLEkxO7HcALYcPAgpNe b6UEMdZCF2lEI0mN6oGWWtDCtj s9X1tBN4M6DawkSlns2qx4pt JXEkYUnfG58quFMvn5L4ZTGhiV Z7ZVXuwUqgJsPblU95Onk+PGNv bWujw0AeEifho1gdo5rzpYz6 OkEmOHTpdoLqiJngLCL0y4QeZa 43O04kGMlcVMBuCXGlRTWyMOZk vSzois1ppC3gYd0+PGNvbCB3 gUU6eF8cFVJxSxQ6XHnwI494Vs VugTBpEtzzs5gxn5frhQf2BpZy SSTijrTuoSvhORW5t8WpKl02 E91uQRiiGGIoMEOmRZRyOKSuyW xexb5ymM5vZd1+SG2ta6xdfr36 tH08sZK+BNCxYBN6hOhcPYta UZHupL6vTNnxWfC7TPMtAjNjrZ 82eSRtKWpaMl1orLlyiLpbZA3q WPEsuhjov721FeXvb1brGRIe dNWzYOcoGJK1H50lx1K7EBIyBT XnXQN0gMK2xU8gsVzmbpjabKNm bEgvyoPcnDbsIPjuNKktH621 IHRvcDsnPlBhdGllbnQgTmFtZT i6J4PdVgu0NCUlxEhrVK7oaOQv RJiwEe5vhFejjQvjJG0tNCZz ojsyl985FmOsy1geMUAwyKCcSL mvLWR0X14wk7R4OTEoLXYcUQF9 tWE0xY4lsUnxxjzwgPVlxNic clEyiRwlZVblMPcpF781IILvqU cdKmLqplGiALDuhCZ5PV16OI24 pFKux5A3cQB1S7FcEUYfryqb usafnOC8VDRvYMKqbY19Lr9tlB jsTi7dXUFlTSB7MKMsfQYrQ3Nd tL4dWvJdMKUgWYBzV7QcjPCz NUsbL478RPbeCiR5IFQaetSkC4 DkVRQvpByvBwL1p3V2Ys1OT5Y2 KC54TU96aFIqy3H2cBN0T7Ad IVXrbxaphvomxMP0JDSpRDPuaL 84Wj0faQveUi0zWUXrOPN7EMYp cXUvH6KvcA1fLiJzZGLlQWFn K0QvhVCiGDrxX759TRqlCrZ5SL RdqxVaF3QmMHWesIteVgA0j5G4 Th9KVSl5JK88IY79lQJzx1H9 oAC5T9CfPUGvgcsrqdcbeBF4DF JnNBFmtK96Wl5kwPjsXe2yBWOw SKS4HGSawTAiY5NcyU9xTxJm KDMzHDFlQ9DoiUNzACpgV100WV nxWkF5OUThtoMmB5HpSRIthHgg PwR1z1Z0Nx1QDIGaZB40ACH6 wUN4DE82LL64E6QvKttvqBDmgO U+PHRhYmxlIHdpZHRoPScxMDAl JtKwoNrkLJ3qTi3nHBBjIHWv gJwwyHVmHvVjn8kwZUSvDFtmXV 9xjXjmR1SkpPG6BLWcd2c0Yl92 N36kI6SmrOW+RCCddHV1pPI8 tG2fCxFeZyI6HKtqB714QcCkrR TvAxepb6qzi8fdnPk5OrM4WWKw gpExkVzbSFU2q3QzRs17M60u IHdpZHRoPSIxNSUiIHZhbGlnbj 1wdX1uFd7+AVVfzBM4yCT4wN4e GoRvHjX4XNtgW764UzSjfDRy Qbiuo3yxd9pgdNo7VhUmTTOtyk RwoZmsHSP4q1XpYt43L5AczTqs o0DuYma8su55qFQtf7Q3fKH7 X5OpBJIcxgdvxHFlmYbtNF6oZJ OwnkzsHFCkgH0hYMAzN9x5QlQv ShP5ZVuvK2UspxV3CSAoxMFs MFzeMAI8A03cv9T8NINfLUVoSC T9tGJ0rK6hjAzoiiuqfXYqsAny eiEveXkgRTisSVxjT498LRTz qEmeVWKdlN7tYJTweDFbgIarKO 4wNTBpbjsnPldPTExFTlNMRUdF TCwgRElBTkEgSjwvdGQ+PHRk CIE7uMjoVQscQEQhiT6eBIAnB3 r0VrPeEqQ5RFygN3EwJYZegxil Au83bN2gNdJxLuR4VCxgY7Qw rhR4NMDynBDnWApsYHP3U66mi3 O2QCTqKNFkOPD0pRM4cG3ouEie bjogbGVmdDsgdmVydGljYWwt CYxdY126VQYdvAiqMkLwKdWrJg F1JPX7A5OsKdz1LLJqzWcvIK8c wLUxGWnwPw9koXtvyDhqWR6n QCWonjsxTXFtgF8bPJYufLBeaT rhOY8mSTUsnpmnq857MtBqALJ4 UKPklYOtF0NsdY5pOiExAYMw SLEwQ6SxwJKtCZjnZ317FIyqXn L7YFKugqZoS1VxOJIomSgfHfG6 g6D8Hd76QnIBTGCymjryeOO+ BOIjCZQ2zMnrGFsgCCFalR6sSP JmE1s0VxPgArF0FKkwI2JgDCXw oidzCz82gX6jZuXhRoI1FRbo S3BtsqZ5FJJfzQUeOCnuAOX2P7 9yk6Q7FDNwWSRfIIQ5lKF3yF8d bGlnbjogbGVmdDsgdmVydGlj HEluIIxhQ835PCPcuJeePcMfuD FsZTwvdGQ+EZQfJAI7iKoeVBli UEKswO0xUFEmL8b2KbXtXkC1 PRemP3KeOAYryjfnXw32fA9sUe RpTaE5CKjoN7UihhZ3UJCvbVZk AFvaLXB0J19mj0X1CHHeNDUr KQV3eNV7sH7xcRakptehhGApbN qaltWsoBnfSLinEXezK351QSNu wYolXm4yq1MivgI0sM0jWW98 ID14B5JzSnwacFZfePT+PHRhYm xlIHdpZHRoPScxMDAlJyBzdHls QO6gNe4aYZIkAWJakTckrPTv HpVnv6qdFRCoVPpnFX9ajXmbZ7 StbOJ7CYAgs3a4Nn51L08vI2Px dXA+CFQsaHB7hKL9dO3xUqUv WbO3LNdgU675DpVssTLkMgogy4 qoj4wozGa0YvXgRWSibrXjiXcz DHE1s0AcKf46B22kYBqyTVHm JKXiMWMmEXCuaPfjde5rgZ8pYz 8+BMNzsHR4hWJ0wS2lSqCzXxZ4 XTawG710QwOeqMDfAmqyW92s Y1BpoCH+CIDrZwk6CXEsmXqgFK 8ptISfXXsbUb8vAZW3KnQpIpIg OLabS9OeVEPjpkqwzwpyuHY8 CNXoJZUshR22Da6qiFrcMn1ySR PqRQQ1NJRsjNHwQ4MkwR8uChOh LAMoWEMpG8RuhJXmKEybP829 WGciKgH9QTGiupOkR2NvZMCjhA mvDwM8s5F6Wb4LeRkloNJqCL2l DmFaYXn0H6TzRut3IADqsXms TV8kpWAfPOuvBi5rhTvydQrhKC 0xHQSxnxbrd148RlEta6jcJUCf lMKhRKouTYS3Y81zj0C2VUCx HQFeDFG0xOZ9zB5ucRuwlhqzcY GdvWasrdJoeOjxTImtZMohY386 ZZHjsRjqHgEFHfk3W6RsBcf5 CCJpiIseFZ5lwPXfXDgbUe8suQ krdMoyTF0uKGBkvldwd374IcVw m8ytYFGgkHKhEHcmAKC0D22b e7J8YLWpATVlWQY3fOL2lF3iyR lnbjogbGVmdDsgdmVydGljYWwt VYlvJ199PXStqVatCg0GTuf1 L9YeShh0VJYksIrrEF7gbRKtLW nqLt3avIdbzJojAQ1nQNTbnpmw u795BsRic9gpTVZqeGUlDAxo XQJ6D27ds1H7MENtWZNaQZZ9aH H2fF6zoRcgdfcqhARwaGyfitRb bWtkEBboAUmvY602HGVaxKru PlBheWVyOjwvdGQ+UY84au30Q8 IkHfwnFvf3CQEcIOJ9tRC7oJ3i INLeSOvyd3Y9tID0E4DrzpDh ci1j (more content not included)... [facility] Coding Summary. CD:[id number] Gh0bWw +PGhlYWQ+PJ8YAOBlI61izDFfr Y1CM4jIXT7BNCGXSTSNVX4VFD3 owKL2EWqtN3UxoxWs QozcxAQqZG51KFq6CIM7vZdsJE yetI8xwWBbG6d6VbUlGW86xM22 HNzcTCTsMgN9CjBqwkuzjVZs J4lqXnNpfGEvRzg+PHRhYmxlIH mfDWFwLAtoEWCrXkThfTbcTJ4h Bj5sORYcVNJlkTcjmBSqVuSe n2yjNLChWXvxYY6qmUtfO0XymX P4RTLmf0r1Lm18fES+PHRkIHN0 aMhbNKlvs724VnOcp5srDSU4 hVJgIFwnDIK6D33rk6X2LRBeGI ItIMD6kGS3uI9wlOmtkpyiP4Ob pTCjGcR7QVP1aSDmfS3ctJjb dwaubJ3jHrm+J09YUX8DJLQUHY 3ISsb0K7ToMccwgIR+ZN71QPLy MK93kLOogBMcg9itvBi2JxEn WAHvZRG8wKqfGMqzb2ZpXYWrX6 5tdZLlh8L3OWPwmGnjsMXpLzLc iJI6uL2pOGrszbrhy5gasprt Nncgw7zduj25dJ66M63dBEdsUE DlZCV9UCVtNYMdaDluvy4vzU7g Ii8+UOkiz2arr3qjuCo7EmAt GJQhjqSftUjmJGC2u8EtDd74J0 UnuVuuz0BeEje9yk14pWYzn4R0 mCL6TNttCKXpoT5zVXrhLqM8 XKBzYfHkpT73hTVeEXnlJk3giY afqOheGG9gJPUzhxhmZTHrdH2a JVDlfTLapDbaXX2kBGHabexw s925KnQlZDR6EOExoZOnB9UojW 8aTwPcCNJnUBSoA4GfgLShFFec S110PGunOzJ4AISuajSdU6Jy DLCalKxnChH0s0K4Rh9Ho8Mpng bmXGD2DHraTCLfGbAdIpNlGvV1 S6OwHxb3YVBhgVogPW6mL4Ri JODkojbztozajYP5GJMuKLQoxT 33oRNiERwcIe2kj8O2o973YRKi XOTbcF54Bi0jdZudGZStsFCI iD1fxwstx0kgeefmIoGyODSlOA y4GPe3SWThqYplGbAgEWU3UxQ6 BZA8hXMtfM8agZgkyowjeB0p Oyc+H71dkS8qQMV0YDY6sxwwJV NepcTnUN65TS26I3HnHvsgzICd bGU+CBVhxxIrjUgoYB4sQhGy p1zyl2LoWLfeK5WwJEQeTIjcAn p2RPQgHWA7kHW2sA0pMUUnFGsx d1X4nXT8Y0LkexMwzm9tp2ju AUYrHRydX99noKRrp2U2BWOnqK F1CFDehAngUiAjlE77Wyy+PGNv aZewh2RzEzpqk0ljj2ialUf9 VnWiKXJbjzHjvWlcCAQ3u1YtLp 53R42kHWooCWDwSCBoDGBhYZJi mBuhub2ugI8xUa9+PGNvbCB3 lQM0gX9pKXVxTrJ9NHhbD119Jo OasTAaKjsry1kra2gckTs9MwHx GMFhqpNipBrqCSJ7s9MkZh78 N34pIBdyBBOvOAJwQXKzGNKzqT aozu0nmP2wAt5+WR0ru0zdur07 uJ12pSI+TNVuGYX1vAonDUly VRWbzZ0oOMzdSnH5SWQiQpLenQ 57dVQaEMleZr2tvXcaaIhqOX9s EKWtrgiun716UrYir0fuPXGd sSIfFFxhMZH1Q28kd4A3HYPaNK QhAJL0yEF3eM7txAjwkkhjkCKn dXkyszEvsXemJEhyRBeaI630 IHRvcDsnPlBhdGllbnQgTmFtZT v6Q2VlJoe7ABSnaOqxTN8qpUPp WAebSm5gsFxgjZhkJJ6bIVZm olzjh874UyWyz8gnJNHmdUIxFJ qoCZK6F05xw4L3JDTyMYKmDAW6 gZH0uH3gdXzcdusluVOawGrk rnAtyNfnFHrbTBzkD040APFeyN yjTnUgmoOePJObnQT6VS56LL93 nIVcz7Q3lVG0X8BiNSAffqpv llsdjFO7FYAfQASmbW99Ze6raR wlFr2sLROhZMF3HZStjRCuF1Oi vJ8vQyOoLLOlENVqB5YxkNBn JUobZ715NTzuEwK7JDVzrnSbR9 HzPRUbuHzoDjL8u4P1Lp4GS3Y0 GK41JG35pTPwk6Z4eVW6L3Of XDBebkrjpuejtED5WSXrOCTygL 85Ep8ugBfxXs6vGFVyCSR8UYVc iSRhY4VgvF7cDwPxSJYoTERc R3LelGUqLCzgI987AOgxVhI9NO NqwaUkH8LtHQHrcKrqNsK5x9P3 Dh7HUZg6YP20CV92wSExm2P1 vAR4I1LfBOHchalpyrnzmUE6UT YdGWAbqH86Xc8rtZfhIy7wQSHu UZS6PYUetLAyB1HeqG6eXmTl VMAeZJZpF9WmzSAiNUyuG951AW nsRhK1NFTdtxGwD2QcNUQgtWou UvB4h2M4Rs2RLRZeAI73XAK1 gCM9RS57QT14D8JzSodxrNXfgE U+PHRhYmxlIHdpZHRoPScxMDAl WrKxmLmgZN8aAs1mDADpJDAl jZpqmKUrDsVnd5qgLJSvSAlyZC 5ljJheG0NmpGB1HNAni2z6Lr66 Z13jX1HrrQC+CQZakJT4dBC9 qS8jKqWvIaL3KZgnR984AbCtsC AgAmdgf1xcp5nafNp9IyG6AEQa xxMnfThkDPH9z2AhAb07V47u IHdpZHRoPSIxNSUiIHZhbGlnbj 0siC0rIu8+OIFpwOU4tVD5rX8f XjRoWtE1SBzmY137CaXycDOr Lbmxm4hye8nhvRd3ViOrMGHfot AkwMtqPQA9s4YgDo08O0OiwPsx i5XwGhd1dg77cTSdm9X4wLK4 K5LsTDKyiykjcUCklBtzNJ6cVD UigjylTZZkiI9hSHKtF5c0GxMa CyJ4OVdkQ4UtdhE7OIUsnYNt KAknSXB4Y08wu9I0VWCsCMEyDK F1cWP2lK3ksIroxvttrDMiwFcm ayIpdPduWDmwBYacZ625YOWg sGmjMNOhzG5kZSEgjFNbzWreUP 4wNTBpbjsnPldPTExFTlNMRUdF TCwgRElBTkEgSjwvdGQ+PHRk ZTO8pAxfACvwFVJjaZ3pKNUsF4 e5UyNkBpL2VJldM5EeLDNcesth Sw32pO8gAgJcOoV9VSaiI7Co mgG9EDOzaQOdJCfiVGY0S26sh3 R1UDHpPTVuJBH1tCZ5qF6wwKih bjogbGVmdDsgdmVydGljYWwt WStoD757WMBisMitFlRiYzMsYd I6VNF9O5PxVhg8KCNlsDwcKE9y bFInMNibJk1qgGgwbZckIL5c HVCvyvgqYNHlzV8cHLAqcBRdbG paMH9kSJUflpcsl497OzEhZTR6 WXUpcAOcP3DpoN1wJaYdYHTc MPJcG6GalGVqWGdzP339TSzhBl L5QPTwobMcE7FuSXYmkTpmUqD8 c9K7Am29OfNDMHYjnkjkyXM+ WGEbLIC9gRhhUDfxTSWqgI5vHC FuJ0e8GxDvHxZ4IWpfK0QbMVXf dxihJx10cZ6fUaWfVlH2EYhz H4OrlqD8CHNieTPpEXpdGRN2A7 8ls5Y0AYIdTZJvZIY2tSH4aI4u bGlnbjogbGVmdDsgdmVydGlj DXfmYOtwO629VDWuuMbrSeXifS FsZTwvdGQ+PCOnZGZ5uCyqNGbj QRRdtJ4gOOBcR8o5OnVmTsY2 LCphY7AmRJJwbvnpUl80dM6xNe CoTtQ5DByqD1IoupF7TCMbfQPc PEvxDNP7S41ms5H3UNLlTFIa NEC3yGT8mU1wkZvnbgxfmCUeeR vynaYfxRisMVknKTjmV256QEQy iQjlHsYrXeCrKSOmjjguP9Xw UEWIXHlwW6GtV4TdqYypgAZ+PC 74ph53O6UfCnmaSjg3RIEnEVO9 gSZ5mT5eWVSpVMdqz1D9xFC3 O9ZqykZqrp7be1jgDIOgKQsoZ7 4wwKBrc9I1APHfcZP4MFEwoYkg JtMoiW41Qhx+MROcjZfyg0Cq Hxsuv7rgz8feiPk2WzGoNIUckl LhySouFHB0w3SdVt14H09zGOnk KBStWNOlRHVxHXTpwXvwec1v sO4eXm3+LCUzsHF3zJD1xE4uYg GoDlA0TMauD541SjSakCDcSour u3quv4oyxBy5SvZzMZNwroCi gFhsRJN8r7BrAw73X9NweFipr4 PuDsj3nh47xNSyu8D6eZZ6V0Uz JOAsubzvpWVqcDfyJQ4eAWHo ntvwUEAbxK0mTSQcB5h1YeFjIi J5UWfoF4BxiuZ0VRNqsZZaNVSq jIJJvP3yosdpe9iacwpfAqYk LNJjBFq5FAa6EQVaqHntReYhYL F7IrK2NYF4rTTnuY9gtOqneekg xD0xGkn+WYb2k3njiBJtUW9r rHL9CF59JU13qBPkj1V5lCO2M3 JmUIViqotueofrfHU8XTYnKYNx jO50Sm0tcCmxQg6pISNwIJB3 CAYmxGKzG5AfeE3yGvAbOJXmYC NmP2ApzEPcGIgsH824IPwqCxM8 PGPujlRzT4LrVYNkkKgtVaU8 j7H8Iq5FSS55GB33RN10dBUig6 M1eOZ3D3OiXWOdjjapplsnhQJ9 UIRhLSMibF36Jd1dpRtoZm4a YPJuCUJ8NVIbxINeU4JsfF5bFd BnFXSzDUPaG8XafZVgLIqxD370 IPewNmP0VTZhqwMtW5MoPVRy mCzhRiW1x0F5Wf6EHc13TW58AQ 81nYRkm5N9pYD5T3EaVSKnprns vljtjQT2BTGwCNEqdH53Iw6q tGppEz3wUPXpHPH0VESuyXLkU2 YadT3iDuPdJCPuBAYhD7PtyNQo CYifE148OPcdUjG0TMBzjsEk E1PzHPYkbXhbWnP2d4C5Fe7HSL riolu1S8HlUrpwyKQ+SJ95KUMa VP67lPDtqVJhs4valQn2BuHr Bhavani (more content not included)... Normal [facility] Discharge Instructionson Discharge Instructions [id number]#1.00CD:127 Normal [facility] Lab Reportson 06-30-2021 Lab Reports [id number]#1.00CD:127 Normal [facility] Message from Medicareon Message from Medicare [id number]#1.00CD:127 Normal [facility] RAD - CT Reporton 06-30-2021 RAD - CT Report [id number]#1.00CD:127 Normal [facility] BMPon 06-29-2021 Anion gap [Moles/Vol] 15 mmol/L Normal 6-16 [facility] Comment on above: Performed By: #### 2 [id number], [id number] #### [facility] [address] [place] [address] Calcium [Mass/Vol] 8.6 mg/dL Low 8.9-11.1 [facility] Comment on above: Performed By: #### 2 362593, [id number] #### [facility] [address] [place] [address] Chloride [Moles/Vol] 104 mmol/L Normal 101-111 [facility] Comment on above: Performed By: #### 2 898398, [id number] #### [facility] [address] [place] [address] CO2 [Moles/Vol] 23 mmol/L Normal 21-31 [facility] Comment on above: Performed By: #### 2 116896, [id number] #### [facility] [address] [place] [address] Creatinine [Mass/Vol] 1.0 mg/dL Normal 0.5-1.3 [facility] Comment on above: Performed By: #### 2 712496, [id number] #### [facility] [address] [place] [address] Glucose [Mass/Vol] 107 mg/dL Normal 55-199 [facility] Comment on above: Result Comment: If t his glucose result represents a fasting glucose, interpretation should refer to the following reference range: 55-99 mg/dL Performed By: #### 2 295885, [id number] #### [facility] [address] [place] [address] Potassium [Moles/Vol] 4.5 mmol/L Normal 3.5-5.3 [facility] Comment on above: Performed By: #### 2 961703, [id number] #### [facility] [address] [place] [address] Sodium [Moles/Vol] 137 mmol/L Normal 135-145 [facility] Comment on above: Performed By: #### 2 858234, [id number] #### [facility] [address] [place] [address] Urea nitrogen [Mass/Vol] 21 mg/dL Normal 5-21 [facility] Comment on above: Performed By: #### 2 932330, [id number] #### [facility] [address] [place] [address] Urea nitrogen/Creatinine [Mass ratio] 21 No Units High 10-20 [facility] Comment on above: Performed By: #### 2 857734, [id number] #### [facility] [address] [place] [address] Inpatient Clinical Summaryon 06-29-2021 Inpatient Clinical Summary [address] [address] Clinical Summary Person Information: Name: MINAL CAPUTO Age: 65 Years : 1955 Sex: Female PCP: EFREN AMANDA MD Marital Status: Race: White Ethnicity: Non- or Language: Taiwanese Visit Id: Visit Reason: New onset afib Speciality: Acuity: Enc Type: Observation Med Service: Medical Arrival: 06/28/2021 15:07:59 Discharge: Dispo Type: Address: [address] [place] [id number] Provider Notes: Diagnosis: 1:Premature atrial beat; 2:Kidney [...] Attending Physician: Terrell IVY MD Consulting Physician: Judy Pierre MD Referring Physician: Follow up: With: Address: When: EFREN AMANDA [address] [place], [place] [id number] Business (1) Within 5 to 7 days Type Location Start [facility] 06/29/2021 5:00 PM 06/29/2021 5:46 PM Confirmed Patient Education Information: Kidney Stones, Wbwh-sc-Npbi Normal [facility] Inpatient Patient Summaryon 06-29-2021 Inpatient Patient Summary [address] [address] Patient Discharge Instructions PERSON INFORMATION [...] Follow up: With: Address: When: EFREN AMANDA [address] [place], [place] [id number] Business (1) Within 5 to 7 days In the event that this physician does not participate in your insurance network, please consult with your insurance company to find a nearby participating provider. Type Location [facility] 06/29/2021 [...] Mouth every day. Pharmacy Information: Other: [facility] Comment: PATIENT EDUCATION INFORMATION Instructions: Kidney Stones Kidney stones are rock-like masses that form inside of the kidneys. Kidneys are organs that make pee (urine). A kidney stone may move into other parts of the u (more content not included)... Normal [facility] Interdisciplinary Note - Yariel e Manageron 06-29-2021 Interdisciplinary Note - Monitoring Engineer CRM spoke with patient in room. Patient is alert and oriented and participates in discharge planning. No family in room. Patient white board updated, and CRM contact information provided. patient states Dr Changsilvanodevante saw her today and plan is to have surgery today as was planed yesterday when she was admitted. Patient verified PCP, insurance and DME. Patient lives alone and a friend or family will transport. she denies any needs at discharge. Will wait for urology for cysto with stent to be placed. [facility] Comment on above: Result Comment: Elec tronically Signed By: Teddy ESPANA, Tequila\.br\Date and Time Signed: 06/29/21 11:22 EDT Monitor Recordon 06-29-2021 Monitor Record [id number]#1.00CD:127 [facility] Monitor Record [id number]#1.00CD:127 [facility] Monitor Record [id number]#1.00CD:127 [facility] Monitor Record [id number]#1.00CD:127 [facility] Monitor Record [id number]#1.00CD:127 [facility] Outside Recordson 06-29-2021 Outside Records [id number]#1.00CD:127 [facility] Patient Education - [employer] 1 08-29-2020 Patient [...] these instructions at home: Medicines ? Take oqvl-aqt-owfjwhd and prescription medicines only as told by [...] 01/28/2009 Document Revised: 12/29/2019 Document Reviewed: 12/29/2019 [employer] Patient Education ? 2019 [place]. [facility] Progress Note-Physicianon Progress Note-Physician Basic [...] 16:48:00) Lymph Auto: 16.9 % (06/28/21 16:48:00) [place] Auto: 8.3 % (06/28/21 16:48:00) Eos Auto: 2.4 % (06/28/21 16:48:00) Basophil Auto: 0.4 % (06/28/21 16:48:00) Neutro Absolute: 6.6 E9/L (06/28/21 16:48:00) Lymph Absolute: 1.6 E9/L (06/28/21 16:48:00) [place] Absolute: 0.8 E9/L (06/28/21 16:48:00) Eos Absolute: [...] pg/mL Low (06/29/21 01:27:00) UA Spec Desc: Merino (06/28/21 15:45:00) UA Color: Yellow2 (06/28/21 15:45:00) [...] and scoliosis. (more content not included)... Normal [facility] Comment on above: Result Comment: Elec tronically Signed By: BIJU HATHAWAY, Terrell\.br\Date and Time Signed: 06/29/21 11:13 EDT Troponin 6 Hr.on 06-29-2021 Troponin I.cardiac [Mass/Vol] 2.70 pg/mL Low 10.10-27.1 0 [facility] Comment on above: Result Comment: The 95% CI (Confidence Interval) PPV (Positive Predictive Value) for myocardial infarction in females is 38 pg/mL, in males 51 pg/mL. The results should be used in conjunction with clinical conditions of myocardial infarction. (Access High Sensitivity Troponin I Instructions For Use, Rosalee Washington, March 2018) Performed By: #### 1 [id number] #### [facility] [address] [place] [address] Troponin 9 Hr.on 06-29-2021 Troponin I.cardiac [Mass/Vol] 2.90 pg/mL Low 10.10-27.1 0 [facility] Comment on above: Result Comment: The 95% CI (Confidence Interval) PPV (Positive Predictive Value) for myocardial infarction in females is 38 pg/mL, in males 51 pg/mL. The results should be used in conjunction with clinical conditions of myocardial infarction. (Access High Sensitivity Troponin I Instructions For Use, Rosalee Sumeet, March 2018) Performed By: #### 1 [id number] #### [facility] [address] [place] [address] US Renalon 06-29-2021 US Renal Exam Date/Time: [...] by: Joseph Aquino MD, V. Transcribed by: OBOGIE Technologist: JOSE GUADALUPE Caceres [facility] XR Abdomen 1 Viewon [...] V. Transcribed by: BOOGIE Technologist: CHECO Normal [facility] eGFRon 06-29-2021 GFR/1.73 sq M.predicted among blacks MDRD (S/P/Bld) [Vol rate/Area] mL/min/{1.73_m2} Normal >=59 [facility] Comment on above: Order Comment: Order added by Discern Expert. Result Comment: eGFR is race adjusted. AA=. Performed By: #### 2 471789, [id number] #### [facility] [address] [place] [address] GFR/1.73 sq M.predicted among non-blacks MDRD (S/P/Bld) [Vol rate/Area] 55 mL/min/1.73 m2 Low >=59 [facility] Comment on above: Order Comment: Order added by Discern Expert. Result Comment: [employer] renetta kidney disease could be indicated at eGFR's of less than 60 mL/min/1.73m2. Kidney failure is indicated at less than 15 mL/min/1.73m2. Performed By: #### 2 338631, [id number] #### [facility] [address] [place] [address] Ambulatory Clinical Summaryo n 06-28-2021 Ambulatory Clinical Summary {[id number]}CD: [id number] Normal [facility] Auto Diffon 06-28-2021 Basophils/100 WBC (Bld) 0.4 % Normal 0.0-2.0 [facility] Comment on above: Order Comment: Order Added by Discern Expert. Performed By: #### 2 587582, 6455043, 6573474, [id number], [id number], [id number] ####[address] [address] Basophils/Leukocytes Auto (Bld) [Pure # fraction] 0.0 E9/L Normal 0.0-0.2 [facility] Comment on above: Order Comment: Order Added by Discern Expert. Performed By: #### 2 005194, 1947873, 3003666, [id number], [id number], [id number] ####[address] [address] Eosinophils/100 WBC (Bld) 2.4 % Normal 0.0-8.0 [facility] Comment on above: Order Comment: Order Added by Discern Expert. Performed By: #### 2 067623, 6688418, 0645991, 06810088, [id number], [id number] ####[address] [address] Eosinophils/Leukocyt es Auto (Bld) [Pure # fraction] 0.2 E9/L Normal 0.0-0.5 [facility] Comment on above: Order Comment: Order Added by Discern Expert. Performed By: #### 2 946164, 9492496, 9871767, [id number], [id number], 4606930 ####[address] [address] Lymphocytes/100 WBC (Bld) 16.9 % Normal 14.0-50.0 [facility] Comment on above: Order Comment: Order Added by Discern Expert. Performed By: #### 2 413783, 2813275, 2371550, 57297732, 33312854, 1316835 ####[address] [address] Lymphocytes/Leukocyt es Auto (Bld) [Pure # fraction] 1.6 E9/L Normal 1.0-4.0 [facility] Comment on above: Order Comment: Order Added by Discern Expert. Performed By: #### 2 234101, 7338018, 5735058, 77821547, [id number], 2000134 ####[address] [place] [address] Monocytes/100 WBC (Bld) 8.3 % Normal 4.0-14.0 [facility] Comment on above: Order Comment: Order Added by Discern Expert. Performed By: #### 2 487973, 9496992, 3308070, [id number], [id number], 9632880 ####[address] [address] Monocytes/Leukocytes Auto (Bld) [Pure # fraction] 0.8 E9/L Normal 0.2-1.0 [facility] Comment on above: Order Comment: Order Added by Discern Expert. Performed By: #### 2 684946, 6914186, 6087269, 44662267, 23703751, 5973841 ####[address] [address] [address] Neutrophils/100 WBC (Bld) 72.0 % Normal 36.0-75.0 [facility] Comment on above: Order Comment: Order Added by Discern Expert. Performed By: #### 2 800110, 8026352, 6503248, 76896473, 52059368, 2466662 ####[address] [address] Neutrophils/Leukocyt es Auto (Bld) [Pure # fraction] 6.6 E9/L Normal 2.0-7.5 [facility] Comment on above: Order Comment: Order Added by Discern Expert. Performed By: #### 2 073848, 6586926, 4496936, 57477066, 32063909, 5371763 ####[facility] [address] [place] [address] BMPon 06-28-2021 Creatinine [Mass/Vol] 1.5 mg/dL High 0.5-1.3 [facility] Comment on above: Performed By: #### 2 883239, 1943327, 2671337, 30126263, 58125735, 1714280 ####[address] [address] Urea nitrogen [Mass/Vol] 25 mg/dL High 5-21 [facility] Comment on above: Performed By: #### 2 231778, 8346874, 4932558, 77026648, 92730342, 9968753 ####[facility] [address] [place] [address] Urea nitrogen/Creatinine [Mass ratio] 17 No Units Normal 10-20 [facility] Comment on above: Performed By: #### 2 660332, 7120518, 5747246, 46776734, 96043881, 8221423 ####[facility] [address] [place] [address] Anion gap [Moles/Vol] 14 mmol/L Normal 6-16 [facility] Comment on above: Performed By: #### 2 018830, 5401213, 3577441, 84194293, 74554942, 5236701 ####[facility] [address] [place] [address] Calcium [Mass/Vol] 8.7 mg/dL Low 8.9-11.1 [facility] Comment on above: Performed By: #### 2 515736, 6011852, 5332395, 65390720, 57696122, 7800095 ####[facility] [address] [place] [address] Chloride [Moles/Vol] 102 mmol/L Normal 101-111 [facility] Comment on above: Performed By: #### 2 081620, 9222470, 9796289, 68153195, 30335418, 5480263 ####[facility] [address] [place] [place] [address] CO2 [Moles/Vol] 27 mmol/L Normal 21-31 [facility] Comment on above: Performed By: #### 2 504929, 8817846, 7930576, 25407896, 53406601, 6882479 ####[facility] [address] [place] [address] Glucose [Mass/Vol] 121 mg/dL Normal 55-199 [facility] Comment on above: Result Comment: If t his glucose result represents a fasting glucose, interpretation should refer to the following reference range: 55-99 mg/dL Performed By: #### 2 279547, 3577993, 0522306, 33010900, 00482605, 2167903 ####[facility] [address] [place] [address] Potassium [Moles/Vol] 3.8 mmol/L Normal 3.5-5.3 [facility] Comment on above: Performed By: #### 2 641431, 3039231, 2474837, 98834476, 20327496, 6635015 ####[facility] [address] [place] [address] Sodium [Moles/Vol] 139 mmol/L Normal 135-145 [facility] Comment on above: Performed By: #### 2 888178, 7846247, 6001860, 66362816, 47412728, 2040367 ####[facility] [address] [place] [address] BUNon 06-28-2021 Urea nitrogen [Mass/Vol] 25 mg/dL High 5-21 [facility] Comment on above: Performed By: #### 2 613538, 6902674, 9448643, 25904544, 6960077, 6424574 ####[facility] [address] [place] [address] CBC w/ Auto Diffon Erythrocyte distribution width (RBC) [Ratio] 14.3 % High 10.9-14.2 [facility] Comment on above: Performed By: #### 2 146283, 4136164, 2497047, 07612901, 90373324, 7787795 ####[facility] [address] [place] [address] Hematocrit (Bld) [Volume fraction] 41.3 % Normal 34.0-46.0 [facility] Comment on above: Performed By: #### 2 142052, 9529579, 0184826, 67590130, 96541087, 1692054 ####[facility] [address] [place] [address] Hemoglobin (Bld) [Mass/Vol] 13.6 g/dL Normal 12.0-16.0 [facility] Comment on above: Performed By: #### 2 268372, 0106701, 8949533, 33734050, 10138919, 6523739 ####[address] [address] MCH (RBC) [Entitic mass] 29.7 pg Normal 27.0-34.0 [facility] Comment on above: Performed By: #### 2 151554, 5680643, 2001885, 23465785, 82830646, 9780561 ####[address] [address] MCHC (RBC) [Mass/Vol] 32.9 g/dL Normal 31.4-36.0 [facility] Comment on above: Performed By: #### 2 043707, 4024687, 0002337, 46277103, 00560150, 7792844 ####[address] [address] MCV (RBC) [Entitic vol] 90.0 fL Normal 80.0-100.0 [facility] Comment on above: Performed By: #### 2 327419, 6877887, 3477894, 62615140, 23607021, 5664014 ####[address] [address] Platelet mean volume (Bld) [Entitic vol] 7.7 fL Normal 6.4-10.8 [facility] Comment on above: Performed By: #### 2 555970, 0879968, 2238171, 18663293, 34976261, 7387324 ####[address] [address] Platelets (Bld) [#/Vol] 300.0 E9/L Normal 150.0-500. 0 [facility] Comment on above: Performed By: #### 2 719140, 2065411, 8283370, 44687582, 33603675, 0396844 ####[facility] [address] [place] [address] RBC (Bld) [#/Vol] 4.6 E12/L Normal 4.3-5.9 [facility] Comment on above: Performed By: #### 2 087771, 0587739, 7680912, 81530819, 51815922, 5470238 ####[address] [place] [address] WBC corrected for nucl RBC Auto (Bld) [#/Vol] 9.2 E9/L Normal 4.0-11.0 [facility] Comment on above: Performed By: #### 2 223475, 4875660, 8883990, 80538876, 59663420, 3747725 ####[address] [address] CBC w/Indiceson 06-28-2021 Erythrocyte distribution width (RBC) [Ratio] 14.2 % Normal 10.9-14.2 [facility] Comment on above: Performed By: #### 2 937077, 5791845, 2821123, 26093357, 0566473, 5335274 ####[address] [address] Hematocrit (Bld) [Volume fraction] 44.1 % Normal 34.0-46.0 [facility] Comment on above: Performed By: #### 2 179988, 5519718, 3711497, 35445450, 8308668, 3186115 ####[address] [place] [address] Hemoglobin (Bld) [Mass/Vol] 14.5 g/dL Normal 12.0-16.0 [facility] Comment on above: Performed By: #### 2 298154, 2903465, 5778349, 73993564, 6653368, 7773386 ####[address] [place] [address] MCH (RBC) [Entitic mass] 29.7 pg Normal 27.0-34.0 [facility] Comment on above: Performed By: #### 2 074978, 8381206, 2027708, 10281638, 0870532, 9475814 ####[address] [address] MCHC (RBC) [Mass/Vol] 32.9 g/dL Normal 31.4-36.0 [facility] Comment on above: Performed By: #### 2 387073, 9378559, 6391276, 68610441, 4162380, 6449557 ####[address] [address] MCV (RBC) [Entitic vol] 90.5 fL Normal 80.0-100.0 [facility] Comment on above: Performed By: #### 2 775423, 4121942, 6734001, 74752226, 7747247, 7203197 ####[address] [address] Platelet mean volume (Bld) [Entitic vol] 7.9 fL Normal 6.4-10.8 [facility] Comment on above: Performed By: #### 2 203681, 3510685, 9960172, 69435656, 3765188, 9331456 ####[address] [address] Platelets (Bld) [#/Vol] 289.0 E9/L Normal 150.0-500. 0 [facility] Comment on above: Performed By: #### 2 098448, 2408708, 8067470, 59491770, 9447703, 9582667 ####[address] [address] RBC (Bld) [#/Vol] 4.9 E12/L Normal 4.3-5.9 [facility] Comment on above: Performed By: #### 2 965069, 7263129, 1755964, 68025129, 7418846, 9265705 ####[facility] [address] [place] [address] WBC corrected for nucl RBC Auto (Bld) [#/Vol] 9.5 E9/L Normal 4.0-11.0 [facility] Comment on above: Performed By: #### 2 889078, 3606637, 9023312, 02932905, 0368784, 6737034 ####[facility] [address] [place] [address] Consent for Procedure/Surger yon 06-28-2021 Consent for Procedure/Surgery [id number]:127 Normal [facility] Consultation Noteon 06-28-20 Consultation Note Patient: MINAL TAMAYO Age: 65 years Sex: Female : 1955 Associated Diagnoses: None Author: Ignacio HAHTAWAY, Judy Black Basic Information Time Seen: Date & Time 06/28/2021 14:31:00. Source of history: Medical personnel, Medical record, Patient. History limitation: None. History of Present Illness 65 yo F with hx of nephrolithiasis who presented to the [facility] ER yesterday with LLQ pain and findings [...] cardiac hx and has never seen a inbound sales manager. Father hx CHF. Currently denies fever, chills, [...] All Problems Abdominal pain / SNOMED CT 05071808 / Confirmed Arthritis / SNOMED CT 7126367 / Confirmed COPD mixed type / SNOMED CT 84681151 / Confirmed Feeling of incomplete bladder emptying / SNOMED CT 612544003 / Confirmed Hydronephrosis with obstructing calculus / SNOMED CT 23940534 / Confirmed Hypertension / SNOMED CT 9087872332 / Confirmed Kidney stone / SNOMED CT 185860964 / Confirmed left kidney, Active Problems (7) Abdominal pain Arthritis COPD mixed type Feeling of incomplete bladder emptying Hydronephrosis with obstructing calculus Hypertension Kidney stone Histories Past Medical History: No active or resolved past medical his (more content not included)... Normal [facility] Comment on above: Result Comment: Elec tronically Signed By: Ignacio HATHAWAY, Judy Acevedo.br\Date and Time Signed: 06/28/21 14:54 EDT Creatinineon 06-28-2021 Creatinine [Mass/Vol] 1.5 mg/dL High 0.5-1.3 [facility] Comment on above: Performed By: #### 2 201623, 0848341, 3120524, 15521181, 5013902, 8926095 ####[facility] [address] [place] [address] Glu Fastingon 06-28-2021 Glucose [Mass/Vol] 102 mg/dL High 55-99 [facility] Comment on above: Performed By: #### 2 090678, 5406363, 0292982, 84000585, 9619752, 6156237 ####[facility] [address] [place] [address] Immunization Recordson 06-28 Immunization Records [id number]:127 Normal [facility] Lyteson 06-28-2021 Anion gap [Moles/Vol] 15 mmol/L Normal 6-16 [facility] Comment on above: Performed By: #### 2 689547, 4206448, 4583267, 01179902, 8200219, 7278492 ####[facility] [address] [place] [address] Chloride [Moles/Vol] 101 mmol/L Normal 101-111 [facility] Comment on above: Performed By: #### 2 577098, 7277857, 2667923, 37428352, 6815754, 7881700 ####[facility] [address] [place] [address] CO2 [Moles/Vol] 27 mmol/L Normal 21-31 [facility] Comment on above: Performed By: #### 2 004784, 3916568, 5164263, 69751385, 8418337, 9987054 ####[facility] [address] [place] [address] Potassium [Moles/Vol] 3.7 mmol/L Normal 3.5-5.3 [facility] Comment on above: Performed By: #### 2 630744, 7668102, 1704875, 98100090, 6614499, 0946680 ####[facility] [address] [place] [address] Sodium [Moles/Vol] 139 mmol/L Normal 135-145 [facility] Comment on above: Performed By: #### 2 613436, 5178466, 7382854, 81298230, 1684262, 7736103 ####[facility] [address] [place] [address] Magnesiumon 06-28-2021 Magnesium [Mass/Vol] 1.9 mg/dL Normal 1.3-2.4 [facility] Comment on above: Performed By: #### 2 085241, 3625010, 2248369, 01881067, 57854070, 2005490 ####[facility] [address] [place] [address] Outside Radiologyon 06-28-20 21 Outside Radiology [id number]:127 Normal [facility] Patient Educationon 06-28-20 21 [...] Follow these instructions at home: ? Take zgwl-qao-ubepbjk and prescription medicines only as told by [...] 06/08/2008 Document Revised: 08/23/2018 Document Reviewed: 08/23/2018 [employer] Patient Education ? 2019 [place]. Normal [facility] Troponin 0 Hr.on 06-28-2021 Troponin I.cardiac [Mass/Vol] 2.70 pg/mL Low 10.10-27.1 0 [facility] Comment on above: Result Comment: The 95% CI (Confidence Interval) PPV (Positive Predictive Value) for myocardial infarction in females is 38 pg/mL, in males 51 pg/mL. The results should be used in conjunction with clinical conditions of myocardial infarction. (Access High Sensitivity Troponin I Instructions For Use, bubl, March 2018) Performed By: #### 2 345640, 2715907, 2050806, 27857873, 46002408, 2753449 ####[facility] [address] [place] [address] Troponin 3 Hr.on 06-28-2021 Troponin I.cardiac [Mass/Vol] 3.00 pg/mL Low 10.10-27.1 0 [facility] Comment on above: Result Comment: The 95% CI (Confidence Interval) PPV (Positive Predictive Value) for myocardial infarction in females is 38 pg/mL, in males 51 pg/mL. The results should be used in conjunction with clinical conditions of myocardial infarction. (Access High Sensitivity Troponin I Instructions For Use, bubl, March 2018) Performed By: #### 1 8079512 ####[facility] [address] [place] [address] UA With Cult Reflexon 2020 Bacteria LM Ql (Urine sed) TRACE Normal Trace [facility] Comment on above: Order Comment: Urina ry Catheter Insertion triggered Urinalysis With Culture Reflex order by discern. Performed By: #### 1 8801149 #### [facility] [address] [place] [address] Bilirubin Ql (U) Negative Normal Negative [facility] Comment on above: Order Comment: Urina ry Catheter Insertion triggered Urinalysis With Culture Reflex order by discern. Performed By: #### 1 7685403 #### [facility] [address] [place] [address] Calcium oxalate crystals LM Ql (Urine sed) Present Normal [facility] Comment on above: Order Comment: Urina ry Catheter Insertion triggered Urinalysis With Culture Reflex order by discern. Performed By: #### 1 3696449 #### [facility] [address] [place] [address] Clarity (U) CLEAR Normal Clear [facility] Comment on above: Order Comment: Urina ry Catheter Insertion triggered Urinalysis With Culture Reflex order by discern. Performed By: #### 1 9056559 #### [facility] [address] [place] [address] Color (U) YELLOW Normal Yellow [facility] Comment on above: Order Comment: Urina ry Catheter Insertion triggered Urinalysis With Culture Reflex order by discern. Performed By: #### 1 6041163 #### [facility] [address] [place] [address] Crystals LM Ql (Urine sed) Present Normal [facility] Comment on above: Order Comment: Urina ry Catheter Insertion triggered Urinalysis With Culture Reflex order by discern. Performed By: #### 1 0153960 #### [facility] [address] [place] [address] Epithelial cells.squamous LM.HPF (Urine sed) [#/Area] 3-4 Normal 0-2 [facility] Comment on above: Order Comment: Urina ry Catheter Insertion triggered Urinalysis With Culture Reflex order by discern. Performed By: #### 1 1998432 #### [facility] [address] [place] [address] Glucose Test strip (U) [Mass/Vol] Negative Normal Negative [facility] Comment on above: Order Comment: Urina ry Catheter Insertion triggered Urinalysis With Culture Reflex order by discern. Performed By: #### 1 0518483 #### [facility] [address] [place] [address] Hemoglobin Ql (U) 2+ Abnormal Negative [facility] Comment on above: Order Comment: Urina ry Catheter Insertion triggered Urinalysis With Culture Reflex order by discern. Performed By: #### 1 8075874 #### [facility] [address] [place] [address] Ketones (U) [Mass/Vol] 1+ Abnormal Negative [facility] Comment on above: Order Comment: Urina ry Catheter Insertion triggered Urinalysis With Culture Reflex order by discern. Performed By: #### 1 8240776 #### [facility] [address] [place] [address] [place].plasma/Lithi um.RBC (Bld) [Mass ratio] 21-30 Abnormal 0-3 [facility] Comment on above: Order Comment: Urina ry Catheter Insertion triggered Urinalysis With Culture Reflex order by discern. Performed By: #### 1 7953862 #### [facility] [address] [place] [address] Mucus Ql (Urine sed) 1+ Normal [facility] Comment on above: Order Comment: Urina ry Catheter Insertion triggered Urinalysis With Culture Reflex order by discern. Performed By: #### 1 8204371 #### [facility] [address] [place] [address] Nitrite Ql (U) Negative Normal Negative [facility] Comment on above: Order Comment: Urina ry Catheter Insertion triggered Urinalysis With Culture Reflex order by discern. Performed By: #### 1 7074572 #### [facility] [address] [place] [address] pH (U) 5.5 [pH] Invalid Interpretation Code 5.0-9.0 [facility] Comment on above: Order Comment: Urina ry Catheter Insertion triggered Urinalysis With Culture Reflex order by discern. Performed By: #### 1 2558535 #### [facility] [address] [place] [address] Protein (U) [Mass/Vol] Negative Normal Negative [facility] Comment on above: Order Comment: Urina ry Catheter Insertion triggered Urinalysis With Culture Reflex order by discern. Performed By: #### 1 0409702 #### [facility] [address] [place] [address] Specific gravity (U) [Rel density] >=1.030 Invalid Interpretation Code 1.005-1.03 0 [facility] Comment on above: Order Comment: Urina ry Catheter Insertion triggered Urinalysis With Culture Reflex order by discern. Performed By: #### 1 0955995 #### [facility] [address] [place] [address] Type of Urine collection method Merino Normal [facility] Comment on above: Order Comment: Urina ry Catheter Insertion triggered Urinalysis With Culture Reflex order by discern. Performed By: #### 1 6269586 #### [facility] [address] [place] [address] Urobilinogen Qn (U) 0.2 {Gerber'U}/dL Normal 0.0-1.0 [facility] Comment on above: Order Comment: Urina ry Catheter Insertion triggered Urinalysis With Culture Reflex order by discern. Performed By: #### 1 1777496 #### [facility] [address] [place] [address] WBC Auto Ql (U) Negative Normal Negative [facility] Comment on above: Order Comment: Urina ry Catheter Insertion triggered Urinalysis With Culture Reflex order by discern. Performed By: #### 1 3517434 #### [facility] [address] [place] [address] WBC LM.HPF (Urine sed) [#/Area] 0-5 Normal 0-5 [facility] Comment on above: Order Comment: Urina ry Catheter Insertion triggered Urinalysis With Culture Reflex order by discern. Performed By: #### 1 7684231 #### [facility] [address] [place] [address] Urology Office/Clinic Noteon 06-28-2021 Urology Office/Clinic Note [...] UVJ stone with hydro on CT yesterday [facility] ER. pt continues to have severe pain despite toradol and percocet. pt's last po intake was a cracker at 5 am and a few sips of water around 8 am. no fever today. UA in clinic shows blood only. case discussed with Dr Pierre (cotton presser MD). Will schedule cysto with possible stent [...] General anesthesia. [place] [facility] [place]. Ordered: Office Visit Level 5 Est 95394 Urnls Dip Stick Auto w/o Microscopy POC 50558 Follow-up With When Contact Information EFREN AMANDA MD [address] [facility] [address] [place] [address]- Additional Instructions: Patient Education Hydronephrosis Problem List/Past [...] Minerals Nexium 20 mg Cap-DR, Oral, Daily Marshall 325 mg-5 mg oral tablet, 1 tab(s), [...] Protein Urine Dipstick: Trace (06/28/21 11:25:00) Specific [place] Urine Dipstick: >=1.030 (06/28/21 11:25:00) Urine Appearance Urine Dipstick: Clear (06/28/21 11:25:00) Urine Color Urine Dipstick: Yellow (06/28/21 11:25:00) Urobilinogen Urine Dipstick: Normal 0.2-1 EU/dl (06/28/21 11:25:00) pH Urine Dipstick: 5.5 (06/28/21 11:25:00) Normal [facility] Comment on above: Result Comment: Elec tronically Signed By: PERLA TOBIAS PA-C.aubrey\Date and Time Signed: 06/28/21 11:50 EDT XR [...] abnormality. FINAL REPORT Dictated: 06/28/2021 2:42 pm Marlena HATHAWAY, Farooq Wellington Signed (Electronic Signature): 06/28/2021 2:42 pm Signed by: Farooq Mendiola MD Transcribed by: BOOGIE Technologist: SHANI Normal [facility] XR Chest 2 Viewson [...] M.D. Transcribed by: BOOGIE Technologist: SHANI Normal [facility] eGFRon 06-28-2021 GFR/1.73 sq M.predicted among blacks MDRD (S/P/Bld) [Vol rate/Area] 42 mL/min/1.73 m2 Low >=59 [facility] Comment on above: Order Comment: Order added by Discern Expert. Result Comment: eGFR is race adjusted. AA=. Performed By: #### 2 803419, 8065247, 4257378, 69742172, 69403997, 4477093 ####[facility] [address] [place] [address] GFR/1.73 sq M.predicted among non-blacks MDRD (S/P/Bld) [Vol rate/Area] 35 mL/min/1.73 m2 Low >=59 [facility] Comment on above: Order Comment: Order added by Discern Expert. Result Comment: [employer] renetta kidney disease could be indicated at eGFR's of less than 60 mL/min/1.73m2. Kidney failure is indicated at less than 15 mL/min/1.73m2. Performed By: #### 2 862746, 6876426, 9521000, 19447664, 66751707, 2613205 ####[facility] [address] [place] [address] GFR/1.73 sq M.predicted among blacks MDRD (S/P/Bld) [Vol rate/Area] 42 mL/min/1.73 m2 Low >=59 [facility] Comment on above: Order Comment: Order added by Discern Expert. Result Comment: eGFR is race adjusted. AA=. Performed By: #### 2 036294, 1042276, 8530006, 58369522, 1849349, 6582339 ####[facility] [address] [place] [address] GFR/1.73 sq M.predicted among non-blacks MDRD (S/P/Bld) [Vol rate/Area] 35 mL/min/1.73 m2 Low >=59 [facility] Comment on above: Order Comment: Order added by Discern Expert. Result Comment: [employer] renetta kidney disease could be indicated at eGFR's of less than 60 mL/min/1.73m2. Kidney failure is indicated at less than 15 mL/min/1.73m2. Performed By: #### 2 924424, 0109374, 6759698, 03319472, 8639986, 0807906 ####[facility] [address] [place] [address] XR KNEE 3V AP/LAT/MERCHANT L Ton 10-02-2018 [...] IMPRESSION: 1. Postsurgical change. No complication identified.. Home Visitor: [facility] Transcribe Date/Time: Oct 02 2018 10:08A Dictated by : JEANA HAWKINS MD This examination was interpreted and the report reviewed and electronically signed by: JEANA HAWKNIS MD on Oct 02 2018 10:09AM EST [id number] 3V AP/LAT/MERCHANT R Ton [...] IMPRESSION: 1. Postsurgical change. No complication identified.. Home Visitor: [facility] Transcribe Date/Time: Oct 02 2018 10:08A Dictated by : JEANA HAWKINS MD This examination was interpreted and the report reviewed and electronically signed by: JEANA HAWKINS MD on Oct 02 2018 10:09AM EST [id number] XR KNEE 3V AP/LAT/MERCHANT L Ton [...] interval complication. Small right-sided joint effusion suspected. Home Visitor: [facility] Transcribe Date/Time: May 19 2018 12:19P Dictated by : MAYITO MCDONALD MD This examination was interpreted and the report reviewed and electronically signed by: MAYITO MCDONALD MD on May 19 2018 12:26PM EST [id number] [facility] XR KNEE 3V AP/LAT/MERCHANT R [...] interval complication. Small right-sided joint effusion suspected. Home Visitor: [facility] Transcribe Date/Time: May 19 2018 12:19P Dictated by : MAYITO MCDONALD MD This examination was interpreted and the report reviewed and electronically signed by: MAYITO MCDONALD MD on May 19 2018 12:26PM EST [id number] [facility] CASE MANAGEMon 04-03-2018 CASE MANAGEM HNO ID: [id number] Author: Tracie JulianRn) PRINCE Hancock Service: Care Management Author Type: Registered Nurse Type: Care Mgt Progress Note Filed: 04/03/2018 12:18 PM Note Text: CARE MANAGEMENT DISCHARGE NOTE SERVICE DATE: 04/03/2018 SERVICE TIME: 04-03-18 LOS: 1 day Admission Date: 03/31/2018 DISCHARGE ARRANGEMENT (list agency and phone number) [facility] facility: Was an expedited discharge program used? No Provider: [facility] CAREGIVER ASSESSMENT: Caregiver is ready, willing and able to meet the patient's needs as recommended by the inter-professional team? Yes Patient's transition needs and plan for meeting these needs: going to SNF Does the patient have an acute stroke diagnosis, or has the patient had a stroke during this admission? No HANDOFF COMMUNICATION: Dr. Trevino via [employer] faxed DC instructions TRANSPORTATION ARRANGEMENTS: Mode of Transportation: [email or web address] Transportation Agency and Phone #: Javier Durant [phone] . Date of Trip: 04-03-18 Type of Service: BLS Non-emergency Is Patient Medicaid Pending: No Discussion of financial coverage occurred with Patient - she paid $402.00 up front via [email or web address] Card to Javier Carleen . Tile Ditcher Location: [facility] Destination: [facility] Financial Care Management Responsibility: None Estimated Charge: N/A Approving Mustanger: N/A ADDITIONAL CONTACT RESOURCES: Discharge Information Row Name Patient Update from 02/24/2018 in Orthopaedics Admission (Current) from 03/31/[address] [facility] 5D Medical Follow-Up Appointment Specialty ? [facility] Provider Name ? Poornima Mcknight RN Address ? [address] [place] [address], [facility] ? [place] [address] Phone Number ? [phone] Appointment Date ? 04/21/18 Appointment Time ? 2:00PM Additonal Instructions ? Patient should bring the following to appointment: Picture ID, Insurance Card, Copay (if applicable), Medications/Med List. Please provide a minimum of 24 hours' notice for cancelations/rescheduling. Needs Prior to Discharge: Ready for Discharge SIGNATURE: Tracie Hancock RN PATIENT NAME: Minal Caputo DATE: April 03, 2018 TIME: 12:13 PM PAGER/CONTACT #: [phone] [facility] CONSULT PROGon 04-03-2018 Protein mass conc HNO ID: [id number] Author: Jose Velasco (Pa) Service: Pain Management Author Type: Physician Fws Faculty Assistant Type: Consult Progress Note Filed: 04/03/2018 10:49 AM Note Text: INPATIENT ACUTE PAIN MGMT PROGRESS NOTES Patient Name: Minal Caputo SERVICE DATE: April 03, 2018 SERVICE TIME: 10:46 AM PRIMARY SERVICE: Ortho and Spine Consult by Dr Trevino for acute post operative pain INTERVAL HPI: [...] DATE: April 03, 2018 TIME: 10:46 AM [facility] NURSING PROGon 04-03-2018 Protein mass conc HNO ID: [id number] Author: Radha Spring) PRINCE Hough Service: Nursing Author Type: Registered Nurse Type: Nursing Progress Note Filed: 04/03/2018 3:07 PM Note Text: Nursing Progress Note Patient Name: Minal Caputo Patient Location: [address]/[id number]- Daily Note:Report called to LENIN Duncan at [phone] This note was completed by: Radha Hough RN [facility] PROGRESSon 04-03-2018 Protein mass conc HNO ID: [id number] Author: Elaine Alcala Service: Orthopaedic Surgery Author [...] control: po - Dressing management: maintain - Merino: n/a - DVT prophylaxis: IPCD and asa - Antibiotic: Periop - Case management for discharge planning - Disposition: Discharge to SNF today. Elaine lAcala MD Resident, Orthopaedic Surgery [id number] April 03, 2018 [facility] THERAPY NTon 04-03-2018 THERAPY NT HNO ID: [id number] Author: Elsa (Pt) Bradford Service: Physical Therapy Author Type: Physical Therapist Type: Therapy (PT/OT/Speech/Resp) Filed: 04/03/2018 2:28 PM Note Text: Physical Therapy Treatment SERVICE DATE: 04/03/2018 SERVICE TIME: 1134 to 1205 ROOM: [place] [address] Recommended Discharge Disposition: Subacute/SNF Justification For Post [...] at Start of Session: Supine in Bed;Call Meyrs in Reach Patient Disposition at End of [...] Diagnosis: Reduced mobility-other Interventions Provided: Therapeutic Exercise (31385);Gait Training (07913) Therapeutic Exercise (49132) Treatment Minutes: 21 1 unit Skilled Intervention(s): Instruction in therapeutic exercise anti-embolitics and TKR exercises. Verbal and tactile cuing provided . Education in TKR precautions, HEP, POC, nonpharm pain management, and importance of repositioning/activity. Performed anti-embolitics and TKR exercises bilaterally ([id number]). Gait Training (12799) Treatment Minutes: 10 1 unit Skilled Intervention(s): [...] Moving Around Current Status (G8978): CL (04/01/18 3295) $ Mobility: Walking and Moving Around Goal Status (G8979): CK (04/01/18 2110) Based on clinical assessment and the score [...] complete details for this therapy evaluation/treatment. SIGNATURE: Rupesh Anthony, SPT PATIENT NAME: Minal Caputo DATE: April 03, 2018 TIME: 12:17 PM I reviewed and agree with the documentation corresponding to this therapy visit. SIGNATURE: Elsa Felder, PT DATE: April 03, 2018 TIME: 2:[address] [facility] Basic Metabolic Panlon 04-02 Anion gap molar conc 11 mmol/L Normal -18 [facility] Comment on above: Performed By: #### T SCR30 #### [place] [address] Calcium mass conc 8.2 mg/dL Low 8.5-10.2 [facility] Comment on above: Performed By: #### T SCR30 #### [place] [address] Chloride molar conc 100 mmol/L Normal 97-105 [facility] Comment on above: Performed By: #### T SCR30 #### [place] [address] CO2 molar conc 25 mmol/L Normal 22-30 [facility] Comment on above: Performed By: #### T SCR30 #### [place] [address] Creatinine mass conc 0.83 mg/dL Normal 0.58-0.96 [facility] Comment on above: Performed By: #### T SCR30 #### [place] [address] eGFR- Amer. >60 Normal >60 [facility] Comment on above: Performed By: #### T SCR30 #### [place] [address] GFR/1.73 sq M predicted among non-blacks MDRD vol rate/area (S/P/Bld) mL/min/{1.73_m2} Normal >60 [facility] Comment on above: Performed By: #### T SCR30 #### [place] [address] Glucose mass conc 129 mg/dL High 74-99 [facility] Comment on above: Performed By: #### T SCR30 #### [place] [address] Potassium molar conc 4.1 mmol/L Normal 3.7-5.1 [facility] Comment on above: Performed By: #### T SCR30 #### [place] [address] Sodium molar conc 136 mmol/L Normal 136-144 [facility] Comment on above: Performed By: #### T SCR30 #### [place] [address] Urea nitrogen mass conc 16 mg/dL Normal 7-21 [facility] Comment on above: Performed By: #### T SCR30 #### [place] [address] CASE MANAGEMon 04-02-2018 CASE MANAGEM HNO ID: [id number] Author: Tracie (Rn) PRINCE Hancock Service: Care Management Author Type: Registered Nurse Type: Care Mgt Progress Note Filed: 04/02/2018 9:17 AM Note Text: CARE MANAGEMENT PROGRESS NOTE SERVICE DATE: 04/02/2018 SERVICE TIME: 9:16 am LOS: 1 day Observation letter given to Minal Caputo on 04-01-18 SIGNATURE: Tracie Hancock RN PATIENT NAME: Minal Caputo DATE: April 02, 2018 TIME: 9:16 AM PAGER/CONTACT #: [phone] [facility] CBC and Differentialon 04-02 Abs Baso <0.03 Normal <0.11 [facility] Comment on above: Performed By: #### T SCR30 #### [place] [address] Abs [place] 1.54 k/uL High <0.87 [facility] Comment on above: Performed By: #### T SCR30 #### [place] [address] Abs Neut 7.77 k/uL High 1.45-7.50 [facility] Comment on above: Performed By: #### T SCR30 #### [place] [address] Basophils/100 WBC (Bld) 0.2 % Normal [facility] Comment on above: Performed By: #### T SCR30 #### [place] [address] Eosinophils #/vol (Bld) 0.07 10*3/uL Normal <0.46 [facility] Comment on above: Performed By: #### T SCR30 #### [place] [address] Eosinophils/100 WBC (Bld) 0.6 % Normal [facility] Comment on above: Performed By: #### T SCR30 #### [place] [address] Erythrocyte distribution width Ratio (RBC) 13.9 % Normal 11.5-15.0 [facility] Comment on above: Performed By: #### T SCR30 #### [place] [address] Hematocrit Volume Fraction (Bld) 31.7 % Low 36.0-46.0 [facility] Comment on above: Performed By: #### T SCR30 #### [place] [address] Hemoglobin mass conc (Bld) 10.2 g/dL Low 11.5-15.5 [facility] Comment on above: Performed By: #### T SCR30 #### [place] [address] Lymphocytes #/vol (Bld) 2.68 10*3/uL Normal 1.00-4.00 [facility] Comment on above: Performed By: #### T SCR30 #### [place] [address] Lymphocytes/100 WBC (Bld) 22.2 % Normal [facility] Comment on above: Performed By: #### T SCR30 #### [place] [address] MCH Entitic mass (RBC) 30.3 pG Normal 26.0-34.0 [facility] Comment on above: Performed By: #### T SCR30 #### [place] [address] MCHC mass conc (RBC) 32.2 g/dL Normal 30.5-36.0 [facility] Comment on above: Performed By: #### T SCR30 #### [place] [address] MCV Entitic volume (RBC) 94.1 fL Normal 80.0-100.0 [facility] Comment on above: Performed By: #### T SCR30 #### [place] [address] Monocytes/100 WBC (Bld) 12.7 % Normal [facility] Comment on above: Performed By: #### T SCR30 #### [place] [address] Neutrophils/100 WBC (Bld) 64.3 % Normal [facility] Comment on above: Performed By: #### T SCR30 #### [place] [address] NRBCs 0.0 /[address] [facility] Comment on above: Performed By: #### T SCR30 #### [place] [address] Platelet mean volume Entitic volume (Bld) 10.9 fL Normal 9.0-12.7 [facility] Comment on above: Performed By: #### T SCR30 #### [place] [address] Platelets #/vol (Bld) 263 10*3/uL Normal 150-400 [facility] Comment on above: Performed By: #### T SCR30 #### [address] RBC #/vol (Bld) 3.37 10*6/uL Low 3.90-5.20 [facility] Comment on above: Performed By: #### T SCR30 #### [address] WBC #/vol (Bld) 12.08 10*3/uL High 3.70-11.00 [facility] Comment on above: Performed By: #### T SCR30 #### [address] CONSULTon 04-02-2018 CONSULT HNO ID: [id number] Author: Jose Velasco (Pa) Service: Pain Management Author Type: Physician Fws Faculty Assistant Type: Consults Filed: 04/02/2018 3:15 PM Note Text: INPATIENT ACUTE PAIN MGMT consult Patient Name: Minal Caputo SERVICE DATE: April 02, 2018 SERVICE TIME: 3:08 PM PRIMARY SERVICE: Ortho and Spine Consult by Dr Trevino for acute post operative pain INTERVAL HPI: [...] (Valadez rods) - PAST SURGICAL HISTORY OF 2007 lumbar laminectomy FAMILY HISTORY Problem Relation Age [...] DATE: April 02, 2018 TIME: 3:08 PM [facility] PROGRESSon 04-02-2018 Protein mass conc HNO ID: [id number] Author: Jennifer Calvo (Service Tester-) David Service: Hospital Medicine Author Type: Nurse [...] with more than 50% of the total qkeb-ff-vfna time of the visit in counseling / coordination of care. [facility] Protein mass conc HNO ID: [id number] Author: Ady Brizuela Service: General Internal Medicine Author Type: Physician [...] 1139 04/28/18 2359 03/31/182029 pneumatic compression stockings (ma,ct) 03/31/18 2030 activity - mobilize patient ([place]) 03/31/18 1030 graduated compression stockings ([place]) VTE Prophylaxis: VTE prophylaxis appropriate SIGNATURE: Ady Brizuela MD PATIENT NAME: Minal Caputo DATE: April 02, 2018 TIME: 3:40 PM PAGER: [phone] [facility] Protein mass conc HNO ID: [id number] Author: Elaine Alcala Service: Orthopaedic Surgery Author [...] control: po - Dressing management: maintain - Merino: n/a - DVT prophylaxis: IPCD and asa - Antibiotic: Periop - Case management for discharge planning - Disposition: SNF today. Elaine Alcala MD Resident, Orthopaedic Surgery [id number] April 02, 2018 10:37 AM [facility] THERAPY NTon 04-02-2018 THERAPY NT HNO ID: [id number] Author: Elsa (Pt) Bradford Service: Physical Therapy Author Type: Physical Therapist Type: Therapy (PT/OT/Speech/Resp) Filed: 04/02/2018 4:54 PM Note Text: Physical Therapy Treatment SERVICE DATE: 04/02/2018 SERVICE TIME: 1536 to 1610 ROOM: [place] [address] Recommended Discharge Disposition: Subacute/SNF Justification For Post [...] Diagnosis: Reduced mobility-other Interventions Provided: Therapeutic Exercise (27121);Therapeutic Activity (51983) Therapeutic Exercise (67878) Treatment Minutes: 14 1 unit Skilled Intervention(s): Instruction in therapeutic exercise seated TKR exercises. Verbal and tactile cuing provided . Education in HEP, POC, nonpharm pain management and importance of repositioning/activity. Performed seated TKR exercises ([id number]). Therapeutic Activity (73775) Treatment Minutes: 20 1 unit Skilled Intervention(s): [...] CODE: PT 6 Clicks Score: 13 (04/02/18 6116) $ Mobility: Walking and Moving Around Current Status (G8978): CL (04/01/18 1358) $ Mobility: Walking and Moving Around Goal Status (G8979): CK (04/01/18 3878) Based on clinical assessment and the score [...] scoliosis s/p valadez rods 1986 Patient Report: The bed is more comfortable [...] DATE: April 02, 2018 TIME: 4:53 PM [facility] THERAPY NT HNO ID: [id number] Author: Elsa (Pt) Bradford Service: Physical Therapy Author Type: Physical Therapist Type: Therapy (PT/OT/Speech/Resp) Filed: 04/02/2018 2:03 PM Note Text: Physical Therapy Treatment SERVICE DATE: 04/02/2018 SERVICE TIME: 1055 to 1118 ROOM: [place] [address] Recommended Discharge Disposition: Subacute/SNF Justification For Post [...] Diagnosis: Reduced mobility-other Interventions Provided: Therapeutic Exercise (47791) Therapeutic Exercise (68067) Treatment Minutes: 23 2 units Skilled Intervention(s): Instruction in therapeutic exercise anti-embolitics and TKR exercises. Verbal and tactile cuing provided . Education in HEP, POC, nonpharm pain management, and importance of repositioning/activity. Performed anti-embolitics and supine TKR exercises ([id number] bilat). Total Timed Code Treatment Minutes: 23 [...] DATE: April 02, 2018 TIME: 2:02 PM [facility] THERAPY NT HNO ID: [id number] Author: Zacarias JulianOt/Mychal Rouse Service: Occupational Therapy Author Type: Occupational Therapist Type: Therapy (PT/OT/Speech/Resp) Filed: 04/02/2018 9:45 AM Note Text: Occupational Therapy Treatment SERVICE DATE: 04/02/2018 SERVICE TIME: 853 ROOM: [place] [address] Recommended Discharge Disposition: Subacute/SNF Justification For Post [...] daily living (ADL) Interventions Provided: Therapeutic Activity (52267);Self Snf Management (28464) Self Snf Management (52933) Treatment Minutes: 14 1 unit Skilled Intervention(s): [...] CODE: OT 6 Clicks Score: 18 (04/02/18 0822) Self Care Current Status (G8987): CK (04/01/18 [...] complete details for this therapy evaluation/treatment. SIGNATURE: Aide Sheehan S/OT PATIENT NAME: Minal Caputo DATE: April 02, 2018 TIME: 9:35 AM I reviewed and agree with the documentation corresponding to this therapy visit. SIGNATURE: LAMAR English/Belle DATE: April 02, 2018 TIME: 9:43 AM [facility] Basic Metabolic Panlon 04-01 Anion gap molar conc 12 mmol/L Normal 05-13 [facility] Comment on above: Performed By: #### C BC, BMP ####[place] [id number] Calcium mass conc 8.3 mg/dL Low 8.5-10.2 [facility] Comment on above: Performed By: #### C BC, BMP ####[place] [id number] Chloride molar conc 102 mmol/L Normal 97-105 [facility] Comment on above: Performed By: #### C BC, BMP ####[place] [id number] CO2 molar conc 24 mmol/L Normal 22-30 [facility] Comment on above: Performed By: #### C BC, BMP ####[place] [id number] Creatinine mass conc 0.86 mg/dL Normal 0.58-0.96 [facility] Comment on above: Performed By: #### C BC, BMP ####[place] [id number] eGFR- Amer. >60 Normal >60 [facility] Comment on above: Performed By: #### C BC, BMP ####[place] [id number] GFR/1.73 sq M predicted among non-blacks MDRD vol rate/area (S/P/Bld) mL/min/{1.73_m2} Normal >60 [facility] Comment on above: Performed By: #### C BC, BMP ####[place] [id number] Glucose mass conc 152 mg/dL High 74-99 [facility] Comment on above: Performed By: #### C BC, BMP ####[place] [id number] Potassium molar conc 4.0 mmol/L Normal 3.7-5.1 [facility] Comment on above: Performed By: #### C BC, BMP ####[place] [id number] Sodium molar conc 138 mmol/L Normal 136-144 [facility] Comment on above: Performed By: #### C BC, BMP ####[facility] [phone] Urea nitrogen mass conc 16 mg/dL Normal 7- [facility] Comment on above: Performed By: #### C BC, BMP ####[facility] [phone] CASE MANAGEMon 04-01-2018 CASE MANAGEM HNO ID: [id number] Author: Tracie (Rn) PRINCE Hancock Service: Care Management Author Type: Registered [...] (Osteoarthritis) of Knee Attendees Present at Rounds: Clinical Leader: Nurse Mustanger/Fws Faculty Assistant Nurse Mustanger: Patient: Minal Caputo Pharmacy: Physical Therapy: Provider: [...] April 01, 2018 TIME: 10:02 AM CSN: [id number] [facility] HNO ID: [id number] Author: Tracie (Prince) PRINCE Hancock Service: Care Management Author Type: Registered Nurse Type: Care Mgt Initial Assessment Filed: 04/01/2018 10:12 AM Note Text: CARE MANAGEMENT: ASSESSMENT AND DISCHARGE PLAN SERVICE DATE: 04/01/2018 SERVICE TIME: 10:05 am PRIMARY CARE PHYSICIAN: Rita Amanda MD ADMISSION STATUS: Inpatient Needs Prior to Discharge: OT/PT Evaluation;Other: See Comment (home vs rehab TBD) 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 No [...] 0 I feel financially burdened by my [place] expenses for my prescription medication: Disagree completely [...] Disclosure Provided POTENTIAL TRANSITION PLANS Home Care [facility] Facility/Intermediate Care Facility To Be Determined Care Management Department will continue to follow. SIGNATURE: Tracie Hancock RN PATIENT NAME: Minal Caputo DATE: April 01, 2018 TIME: 10:05 AM PAGER/CONTACT #: [phone] [facility] CBCon 04-01-2018 Erythrocyte distribution width Ratio (RBC) 14.0 % Normal 11.5-15.0 [facility] Comment on above: Performed By: #### C GUIDO BMP ####[facility] [phone] Hematocrit Volume Fraction (Bld) 34.0 % Low 36.0-46.0 [facility] Comment on above: Performed By: #### C GUIDO BMP ####[facility] [phone] Hemoglobin mass conc (Bld) 11.1 g/dL Low 11.5-15.5 [facility] Comment on above: Performed By: #### C BC, BMP ####[address] MCH Entitic mass (RBC) 30.4 pG Normal 26.0-34.0 [facility] Comment on above: Performed By: #### C BC, BMP ####[address] MCHC mass conc (RBC) 32.6 g/dL Normal 30.5-36.0 [facility] Comment on above: Performed By: #### C BC, BMP ####[address] MCV Entitic volume (RBC) 93.2 fL Normal 80.0-100.0 [facility] Comment on above: Performed By: #### C BC, BMP ####[address] Platelet mean volume Entitic volume (Bld) 10.9 fL Normal 9.0-12.7 [facility] Comment on above: Performed By: #### C BC, BMP ####[address] Platelets #/vol (Bld) 290 10*3/uL Normal 150-400 [facility] Comment on above: Performed By: #### C BC, BMP ####[address] RBC #/vol (Bld) 3.65 10*6/uL Low 3.90-5.20 [facility] Comment on above: Performed By: #### C BC, BMP ####[address] WBC #/vol (Bld) 15.94 10*3/uL High 3.70-11.00 [facility] Comment on above: Performed By: #### C BC, BMP ####[address] [phone] CONSULTon 04-01-2018 CONSULT HNO ID: [id number] Author: Ady Brizuela Service: General Internal Medicine Author Type: Physician [...] - , CLASSIC, IN-HOSP CARE 1980 - [facility] AFTER DELIVERY - PAST SURGICAL HISTORY OF [...] GI: No nausea, vomiting, or diarrhea : Merino in place MUSCULOSKELETAL: positive for arthritis Objective [...] 04/01/2018 Neut% 55.6 03/19/2018 Lymph% 31.7 03/19/2018 [place]% 6.4 03/19/2018 Eosin% 5.5 03/19/2018 Baso% 0.8 03/19/2018 Abs Neut (ANC) 4.39 03/19/2018 Abs [place] 0.51 03/19/2018 Abs Eosin 0.44 03/19/2018 Abs [...] DVT prophylaxis. Will follow. Thanks. SIGNATURE: Ady Brizuela MD PATIENT NAME: Minal Caputo DATE: April 01, 2018 TIME: 8:53 AM PAGER: [phone] [facility] NURSING PROGon 04-01-2018 Protein mass conc HNO ID: [id number] Author: Pat Newman (Acn) RN Service: (none) Author Type: Advance Clinical Nurse Type: Nursing Progress Note Filed: 04/01/2018 3:43 PM Note Text: Nursing Progress Note Patient Name: Minal Caputo Patient Location: [address]/[place] [address] Daily Note: Reviewed isometric and incentive spirometry [...] note was completed by: Pat Newman RN [facility] Protein mass conc HNO ID: [id number] Author: Romana Goldman RN Service: (none) Author Type: Registered Nurse Type: Nursing Progress Note Filed: 03/31/2018 10:37 PM Note Text: Nursing Progress Note Patient Name: Minal Caputo Patient [facility]: [id number]- Daily Note:2045 pt drowsy, pt VSS at this time. Pt placed on continuous pulse ox in room, on 3L/O2 at 97% NC. Pt has strong and equal p/p, no N/T, no N/V, with good sensation and pulse. Call light within reach. This note was completed by: Romana Goldman RN [facility] PROGRESSon 04-01-2018 Protein mass conc HNO ID: [id number] Author: Jennifer Calvo (Service Tester-) David Service: Hospital Medicine Author Type: Nurse [...] with more than 50% of the total nxlu-sk-wpnw time of the visit in counseling / coordination of care. [facility] Protein mass conc HNO ID: [id number] Author: Elaine Alcala Service: Orthopaedic Surgery Author [...] control: po - Dressing management: maintain - Merino: n/a - DVT prophylaxis: IPCD and asa - Antibiotic: Periop - Case management for discharge planning - Disposition: Home tomorrow. Elaine Alcala MD Resident, Orthopaedic Surgery [id number] 04/01/2018 12:21 PM Please page 2BONE ([phone]) from 5p-6a and on weekends for any issues. [facility] THERAPY NTon 04-01-2018 THERAPY NT HNO ID: [id number] Author: Elsa (PtStan Felder Service: Physical Therapy Author Type: Physical Therapist Type: Therapy (PT/OT/Speech/Resp) Filed: 04/01/2018 4:00 PM Note Text: Physical Therapy Evaluation SERVICE DATE: 04/01/2018 SERVICE TIME: 1358 to 1501 ROOM: [place] [address] Recommended Discharge Disposition: Subacute/SNF Justification For Post [...] Diagnosis: Reduced mobility-other Interventions Provided: Evaluation;Therapeutic Exercise (59805);Therapeutic Activity (38940);Gait Training (40778) $ Evaluation-Low (42463) Billed Units: 1 unit Therapeutic Exercise (74350) Treatment Minutes: 20 1 unit Skilled Intervention(s): Instruction in therapeutic exercise supine TKR exercises Verbal and tactile cuing provided . Education in HEp and TKR booklet Therapeutic Activity (64826) Treatment Minutes: 10 1 unit Skilled Intervention(s): Instructed patient in supine to sit pushing with upper extremities to sit up Instructed patient in sit to supine using safe, effective technique Education with POC, precuations, nonpharm pain control techniques Gait Training (39555) Treatment Minutes: 10 1 unit Skilled Intervention(s): [...] for the period of 04/01/2018 through 04/15/2018. [facility] THERAPY NT HNO ID: [id number] Author: Zacarias JulianOt/LStan Rouse Service: Occupational Therapy Author Type: Occupational Therapist Type: Therapy (PT/OT/Speech/Resp) Filed: 04/01/2018 1:22 PM Note Text: Occupational Therapy Evaluation SERVICE DATE: 04/01/2018 SERVICE TIME: 1125 to 1202 ROOM: [place] [address] Recommended Discharge Disposition: Subacute/SNF Justification For Post [...] of daily living (ADL) Interventions Provided: Evaluation;Self Snf Management (52096) $ Evaluation-Low (31824) Billed Units: 1 unit Self Snf Management (16411) Treatment Minutes: 22 1 unit Skilled Intervention(s): [...] G CODE: OT 6 Clicks Score: 17 (04/01/181124) Self Care Current Status (G8987): CK (04/01/181124) Self Care Goal Status (G8988): CJ (04/01/181124) Based on clinical assessment and the score [...] Lower Body Maximal Assistance Toileting Total Assistance (merino) Functional Mobility Assist Level Rolling Minimal Assistance [...] complete details for this therapy evaluation/treatment. SIGNATURE: Aide Sheehan S/OT PATIENT NAME: Minal Caputo DATE: April 01, 2018 TIME: 12:49 PM I reviewed and agree with the documentation corresponding to this therapy visit. SIGNATURE: LAMAR English/Belle DATE: April 01, 2018 TIME: 1:22 PM [facility] THERAPY NT HNO ID: [id number] Author: Elsa (PtStan Felder Service: Physical Therapy Author Type: Physical Therapist Type: Therapy (PT/OT/Speech/Resp) Filed: 04/01/2018 11:59 AM Note Text: PHYSICAL THERAPY MISSED VISIT SERVICE DATE: 04/01/2018 SERVICE TIME: 1145 to 1145 ROOM: [id number]-5X-570G- Attempted Evaluation. Patient not seen due to Another service at bedside. OT bedside SIGNATURE: Elsa Felder PT PATIENT NAME: Minal Caputo DATE: April 01, 2018 TIME: 11:58 AM [facility] ANES Angel 03-31-2018 ANES POST HNO ID: [id number] Author: Day Walker Service: Anesthesiology Author Type: [...] 31, 2018 TIME: 5:16 PM PAGER/CONTACT #: [facility] ANES PREOPon 03-31-2018 ANES PREOP HNO ID: [id number] Author: Skye An Service: Anesthesiology Author Type: Anesthesiologist Type: Anesthesia PreOp Filed: 03/31/2018 12:10 PM Note Text: ANESTHESIOLOGY DAY OF SURGERY NOTE SERVICE DATE: 03/31/2018 SERVICE TIME: 12:06 : 1955 Procedure(s) (LRB): ARTHROPLASTY REPLACE JOINT TOTAL KNEE BILATERAL (Bilateral) Surgeon(s): Donte Trevino Estimated body mass index is 47.17 kg/m? [...] - , CLASSIC, IN-HOSP CARE 1980 - [facility] AFTER DELIVERY - PAST SURGICAL HISTORY OF [...] injection (XYLOCAINE) 0.1-0.2 mL INTRADERMAL PRN Donte Trevino lactated ringers infusion 5-30 mL/hr INTRAVENOUS CONTINUOUS Donte Belle Goode Last Rate: 30 mL/hr at 03/31/18 1150 30 mL/hr at 03/31/18 1150 celecoxib 200 mg cap(s) (CeleBREX) 200 mg ORAL Pre-Op Once Donte L Goode ceFAZolin 3 g in D5W 100 mL (ANCEF) 3 g INTRAVENOUS ONCE Donte Belle Goode Allergies: ALLERGIES Allergen Reactions - Adhesive Bandages [...] March 31, 2018 TIME: 12:06 PM CSN: [id number] [facility] BRIEF OP NOTon 03-31-2018 BRIEF OP NOT HNO ID: [id number] Author: Donte Trevino Service: Orthopaedic Surgery Author Type: Physician Type: Brief Op Note Filed: 03/31/2018 4:59 PM Note Text: BRIEF OP NOTE LOG ID: [id number] Surgery/Procedure Date: 03/31/2018 Incision/Procedure Start Time: 1:54 PM Incision Close/Procedure End Time: 4:40 PM Surgeon(s)/Proceduralist(s ) and Fws Faculty Assistant(s): Surgeon(s) and Role: * Donte Trevino - Primary * Elaine Alcala - Resident [...] 31, 2018 TIME: 4:50 PM PAGER/CONTACT #: [facility] NURSING PROGon 03-31-2018 Protein mass conc HNO ID: [id number] Author: Amy JulianRn) PRINCE Mcdonnell Service: (none) Author Type: Registered Nurse Type: Nursing Progress Note Filed: 03/31/2018 6:33 PM Note Text: Nursing Progress Note Patient Name: Minal Caputo [facility] Daily Note: Patient with decreased respirations and O2 sat of 70-80%'s. here nasal and oral airways inserted. Narcan given as ordered patient bagged at this time. 175 Second dose of narcan given as ordered. Patient continues to be bagged by 180 O2 sat remains 80'-90's third dose of Narcan given as ordered. 1813 More awake moaning Oral airway out per patient Nasal airway remains in place. 180 O2 sat 90's respirations 10 to 12, fourth dose of Narcan given as ordered. 183 Family in PACU to see patient and aware of delay in PACU for two hours. Patient shivering warm blankets applied. This note was completed by: Amy Mcdonnell RN [facility] Protein mass conc HNO ID: [id number] Author: Rosa JulianRn) PRINCE Zarco Service: Nursing Author Type: Registered Nurse Type: Nursing Progress Note Filed: 03/31/2018 4:54 PM Note Text: Discharge Status: Patient is Awakening, and is extubated. Skin condition was warm. Transported to recovery room via bed with siderails up. Accompanied by automation engineering manager and resident. [facility] Protein mass conc HNO ID: [id number] Author: Rosa (Rn) PRINCE Zarco Service: Nursing Author Type: Registered Nurse [...] of exposure and providing warm irrigation fluid. [facility] Protein mass conc HNO ID: [id number] Author: Lolis JulianRn) PRINCE Jin Service: (none) Author Type: Registered Nurse Type: Nursing Progress Note Filed: 03/31/2018 11:48 AM Note Text: Nursing Progress Note Patient Name: Minal Caputo Patient Location: -OPERATING ROOM [place]/* Daily Note: Pt aware of procedure. Alert and oriented x 3. Pt states just discomfort in bilateral knees while lying in the bed. 2+ dp/pt pulses to bilateral feet. Adequate push/pulls to bilateral feet. IV tolerated well. IV fluids running. Safety maintained. This note was completed by: Lolis Jin RN [facility] OPERATIVE NOon 03-31-2018 OPERATIVE NO HNO ID: [id number] Author: Donte Trevino Service: Orthopaedic Surgery Author Type: Physician Type: Operative Report Filed: 03/31/2018 5:40 PM Note Text: OPERATIVE/PROCEDURE REPORT LOG ID: [id number] Surgery/Procedure Date: 03/31/2018 Incision/Procedure Start Time: 1:54 PM Incision Close/Procedure End Time: 4:40 PM Surgeon(s)/Proceduralist(s ) and Fws Faculty Assistant(s): Surgeon(s) and Role: * Donte Trevino - Primary * Elaine (Res) Fredrick - [...] Implant Name Type Inv. Item Serial No. National Sales Associate Lot No. LRB Model Num No. Used CEMENT SIMPLEX P BONE RADIOPAQUE FULL DOSE - [id number] Cement / Putty CEMENT SIMPLEX P BONE RADIOPAQUE FULL DOSE ANTONI [id number] Right [id number] CEMENT SIMPLEX P BONE RADIOPAQUE FULL DOSE - [id number] Cement / Putty CEMENT SIMPLEX P BONE RADIOPAQUE FULL DOSE ANTONI [id number] Left [id number] BASEPLATE TRIATHLON 4 UNIVERSAL COCR TIBIAL TOTAL STABILIZE CEMENTED KNEE - [id number] Plate BASEPLATE TRIATHLON 4 UNIVERSAL COCR TIBIAL TOTAL STABILIZE CEMENTED KNEE STRY/[employer] [id number] Left [id number] COMPONENT TRIATHLON 33MM X3 9MM PATELLAR SYMMETRIC KNEE SUPERIOR - [id number] Joint - Knee COMPONENT TRIATHLON 33MM X3 9MM PATELLAR SYMMETRIC KNEE SUPERIOR STRY/[employer] [id number] Left 5550-L-339 1 COMPONENT TRIATHLON 4 FEMORAL CEMENTED POSTERIOR STABILIZE KNEE LEFT - [id number] Joint COMPONENT TRIATHLON 4 FEMORAL CEMENTED POSTERIOR STABILIZE KNEE LEFT STRY/[employer] [id number] Left [id number] 1 INSERT TRIATHLON 4 X3 11MM TIBIAL BEARING POSTERIOR STABILIZE KNEE - [id number] Joint - Knee INSERT TRIATHLON 4 X3 11MM TIBIAL BEARING POSTERIOR STABILIZE KNEE STRY/[employer] [id number] Left [id number] 1 CEMENT SIMPLEX P BONE RADIOPAQUE FULL DOSE - [id number] Cement / Putty CEMENT SIMPLEX P BONE RADIOPAQUE FULL DOSE ANTONI [id number] Right [id number] 1 COMPONENT TRIATHLON 33MM X3 9MM PATELLAR SYMMETRIC KNEE SUPERIOR - [id number] Joint - Knee COMPONENT TRIATHLON 33MM X3 9MM PATELLAR SYMMETRIC KNEE SUPERIOR STRY/[employer] [id number] Right 5550-L-339 1 BASEPLATE TRIATHLON 4 UNIVERSAL COCR TIBIAL TOTAL STABILIZE CEMENTED KNEE - [id number] Plate BASEPLATE TRIATHLON 4 UNIVERSAL COCR TIBIAL TOTAL STABILIZE CEMENTED KNEE STRY/[employer] [id number] Right [id number] 1 COMPONENT TRIATHLON 4 FEMORAL CEMENTED POSTERIOR STABILIZE KNEE RIGHT - [id number] Joint - Knee COMPONENT TRIATHLON 4 FEMORAL CEMENTED POSTERIOR STABILIZE KNEE RIGHT STRY/[employer] [id number] Right [id number] 1 STEM TRIATHLON 12MM COCR 50MM FEMORAL CEMENTED TOTAL STABILIZED KNEE - [id number] Joint - Knee STEM TRIATHLON 12MM COCR 50MM FEMORAL CEMENTED TOTAL STABILIZED KNEE STRY/[employer] [id number] Right [id number] 1 SCREW LCP 6.5MM 8MM PARTIAL THREAD STAINLESS STEEL 45MM 32MM BONE LARGE - [id number] Screw SCREW LCP 6.5MM 8MM PARTIAL THREAD STAINLESS STEEL 45MM 32MM BONE LARGE [employer] Right 217.045 1 WASHER LCP 13MM 6.6MM STAINLESS STEEL ORTHOPEDIC 4.5-7.3MM SCREW NONSTERILE - [id number] Screw WASHER LCP 13MM 6.6MM STAINLESS STEEL ORTHOPEDIC 4.5-7.3MM SCREW NONSTERILE [employer] Right 219.99 2 SCREW LCP 6.5MM 8MM FULL THREAD STAINLESS STEEL 35MM BONE LARGE HEXAGONAL - [id number] Screw SCREW LCP 6.5MM 8MM FULL THREAD STAINLESS STEEL 35MM BONE LARGE HEXAGONAL [employer] Right 218.035 1 INSERT TRIATHLON 4 X3 9MM TIBIAL POSTERIOR STABILIZE KNEE - [id number] Joint - Knee INSERT TRIATHLON 4 X3 9MM TIBIAL POSTERIOR STABILIZE KNEE STRY/[employer] [id number] Right [id number] 1 PROBLEM LIST: ACTIVE PROBLEM LIST Spinal [...] cuts were made for the femoral component. rib cutter was used to remove notch bone.Attention [...] assisted with exposure and closure. SIGNATURE: Donte Trevino MD PATIENT NAME: Minal Caputo DATE: March 31, 2018 TIME: 5:01 PM PAGER/CONTACT #: [facility] PT EDon 03-31-2018 PT ED HNO ID: [id number] Author: Karly JulianRn) PRINCE Mendoza Service: Nursing Author Type: Registered Nurse [...] None Electronically Signed By: Karly Mendoza RN [facility] XR KNEE 2V AP/LAT RTon [...] recent surgery. IMPRESSION: Satisfactory postoperative right knee. Home Visitor: PSCB Transcribe Date/Time: Mar 31 2018 6:26P Dictated by : GARRETT REYES MD This examination was interpreted and the report reviewed and electronically signed by: GARRETT REYES MD on Mar 31 2018 6:27PM EST [id number] [facility] NURSING PROGon 03-26-2018 Protein mass conc HNO ID: [id number] Author: Poornima JulianRnStan Vance RN Service: (none) Author Type: Registered Nurse [...] office visit with Dr. Roldan, [facility] includes the followin. Patient was informed of the skin testing result. Since she also has (-) oral challenge, she has no penicillin allergy Chart check complete. MGreiciusRN Normal [facility] Type and SCR (30D)on 018 ABO/RH(D) Positive Normal [facility] Comment on above: Performed By: #### T SCR30 #### 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 She is referred here [...] - , CLASSIC, IN-HOSP CARE 1980 - [facility] AFTER DELIVERY - PAST SURGICAL HISTORY OF [...] 10:47 AM Signed Penicillin G Sodium Lot #[id number] Exp. 03/27/18 [employer] NDC: 5444-8457-76 Prepen Lot #[id number] Exp. 06/13 [employer] NDC: 67711-811-83 0.9% Sodium chloride Inj Lot# [id number] Exp. 07/26/2019 [facility] NDC:1096-1272-65 Skin testing at 15 minute intervals. Prick [...] ?0/0 ORAL Antibiotic?Challenge ? Amoxicillin 250mg/5ml Lot: [id number] Exp: 04/03/2018 ? Given at 0830 Dose:?250 mg/5ml Observed for 60 minutes. Patient denies any symptoms of adverse reaction (rash/hives/itching/swelli ng/breathing difficulties). ? Patient was evaluated by physician and discharged from clinic at 0930. [facility] XR KNEE 4V AP/PA BOTH+LAT/ME [...] Degenerative changes with no acute process seen. Home Visitor: BEA Transcribe Date/Time: Feb 24 2018 11:07A Dictated by : MAYITO MCDONALD MD This examination was interpreted and the report reviewed and electronically signed by: MAYITO MCDONALD MD on Feb 24 2018 12:22PM EST [id number] [facility] XR KNEE 4V AP/PA BOTH+LAT/ME [...] Degenerative changes with no acute process seen. Home Visitor: BEA Transcribe Date/Time: Feb 24 2018 11:07A Dictated by : MAYITO MCDONALD MD This examination was interpreted and the report reviewed and electronically signed by: MAYITO MCDONALD MD on Feb 24 2018 12:22PM EST [id number] [facility] No Panel Information [facility] Vital Signs Date Time Vital Sign Value Performing Clinician Facility 07-16-2024 08:33-0500 Body height 157.5 cm Mitch Neri MD Work Phone: [facility] 07-16-2024 08:33-0500 Body mass index (BMI) [Ratio] 51.33 kg/m2 Mitch Neri MD Work Phone: [facility] 07-16-2024 08:33-0500 Body temperature 98.1 [degF] Mitch Neri MD Work Phone: [facility] 07-16-2024 08:33-0500 Body weight 127.3 kg Mitch Neri MD Work Phone: [facility] 07-16-2024 08:33-0500 Diastolic blood pressure 42 mm[Hg] Mitch Neri MD Work Phone: [facility] 07-16-2024 08:33-0500 Heart rate 73 /min Mitch Neri MD Work Phone: [facility] 07-16-2024 08:33-0500 Respiratory rate 18 /min Mitch Neri MD Work Phone: [facility] 07-16-2024 08:33-0500 SaO2% (BldA) [Mass fraction] 99 % Mitch Neri MD Work Phone: [facility] 07-16-2024 08:33-0500 Systolic blood pressure 121 mm[Hg] Mitch Neri MD Work Phone: [facility] 07-15-2024 14:03-0500 Diastolic blood pressure 72 mm[Hg] Sandy Mcrgegor MD, PhD Work Phone: [facility] 07-15-2024 14:03-0500 Heart rate 77 /min Sandy Mcgregor MD, PhD Work Phone: [facility] 07-15-2024 14:03-0500 Systolic blood pressure 126 mm[Hg] Sandy Mcgregor MD, PhD Work Phone: [facility] 06-10-2024 09:21-0400 Body height 157.5 cm Sunny Jenkins MD Work Phone: [facility] 06-10-2024 09:21-0400 Body mass index (BMI) [Ratio] 50.85 kg/m2 Sunny Jenkins MD Work Phone: [facility] 06-10-2024 09:21-0400 Body temperature 98.2 [degF] Sunny Jenkins MD Work Phone: [facility] 06-10-2024 09:21-0400 Body weight 126.1 kg Sunny Jenkins MD Work Phone: [facility] 06-10-2024 09:21-0400 Diastolic blood pressure 68 mm[Hg] Sunny Jenkins MD Work Phone: [facility] 06-10-2024 09:21-0400 Heart rate 72 /min Sunny Jenkins MD Work Phone: [facility] 06-10-2024 09:21-0400 SaO2% (BldA) [Mass fraction] 98 % Sunny Jenkins MD Work Phone: [facility] 06-10-2024 09:21-0400 Systolic blood pressure 128 mm[Hg] Sunny Jenkins MD Work Phone: [facility] 06-03-2024 13:03-0400 Body height 157.5 cm Mitch Neri MD Work Phone: [facility] 06-03-2024 13:03-0400 Body mass index (BMI) [Ratio] 50.12 kg/m2 Mitch Neri MD Work Phone: [facility] 06-03-2024 13:03-0400 Body temperature 97.9 [degF] Mitch Neri MD Work Phone: [facility] 06-03-2024 13:03-0400 Body weight 124.3 kg Mitch Neri MD Work Phone: [facility] 06-03-2024 13:03-0400 Diastolic blood pressure 83 mm[Hg] Mitch Neri MD Work Phone: [facility] 06-03-2024 13:03-0400 Heart rate 72 /min Mitch Neri MD Work Phone: [facility] 06-03-2024 13:03-0400 Respiratory rate 18 /min Mitch Neri MD Work Phone: [facility] 06-03-2024 13:03-0400 SaO2% (BldA) [Mass fraction] 96 % Mitch Neri MD Work Phone: [facility] 06-03-2024 13:03-0400 Systolic blood pressure 142 mm[Hg] Mitch Neri MD Work Phone: [facility] 05-19-2024 14:01-0400 Body height 157.5 cm Pacc 1 Work Phone: [facility] 05-19-2024 14:01-0400 Body mass index (BMI) [Ratio] 50.81 kg/m2 Pacc 1 Work Phone: [facility] 05-19-2024 14:01-0400 Body temperature 98.2 [degF] Pacc 1 Work Phone: [facility] 05-19-2024 14:01-0400 Body weight 126 kg Pacc 1 Work Phone: [facility] 05-19-2024 14:01-0400 Diastolic blood pressure 82 mm[Hg] Pacc 1 Work Phone: [facility] 05-19-2024 14:01-0400 Heart rate 81 /min Pacc 1 Work Phone: [facility] 05-19-2024 14:01-0400 Respiratory rate 16 /min Pacc 1 Work Phone: [facility] 05-19-2024 14:01-0400 SaO2% (BldA) [Mass fraction] 96 % Pacc 1 Work Phone: [facility] 05-19-2024 14:01-0400 Systolic blood pressure 145 mm[Hg] Pacc 1 Work Phone: [facility] 05-05-2024 14:06-0400 Body mass index (BMI) [Ratio] 54.87 kg/m2 Sandy Mcgregor MD, PhD Work Phone: [facility] 05-05-2024 14:06-0400 Body weight 128.1 kg Sandy Mcgregor MD, PhD Work Phone: [facility] 05-05-2024 14:06-0400 Diastolic blood pressure 56 mm[Hg] Sandy Mcgregor MD, PhD Work Phone: [facility] 05-05-2024 14:06-0400 Heart rate 72 /min Sandy Mcgregor MD, PhD Work Phone: [facility] 05-05-2024 14:06-0400 Systolic blood pressure 120 mm[Hg] Sandy Mcgregor MD, PhD Work Phone: [facility] 04-21-2024 09:37-0400 Body height 152.8 cm Mitch Neri MD Work Phone: [facility] 04-21-2024 09:37-0400 Body mass index (BMI) [Ratio] 54.25 kg/m2 Mitch Neri MD Work Phone: [facility] 04-21-2024 09:37-0400 Body temperature 97.7 [degF] Mitch Neri MD Work Phone: [facility] 04-21-2024 09:37-0400 Body weight 126.65 kg Mitch Neri MD Work Phone: [facility] 04-21-2024 09:37-0400 Diastolic blood pressure 64 mm[Hg] Mitch Neri MD Work Phone: [facility] 04-21-2024 09:37-0400 Heart rate 78 /min Mitch Neri MD Work Phone: [facility] 04-21-2024 09:37-0400 Respiratory rate 18 /min Mitch Neri MD Work Phone: [facility] 04-21-2024 09:37-0400 SaO2% (BldA) [Mass fraction] 95 % Mitch Neri MD Work Phone: [facility] 04-21-2024 09:37-0400 Systolic blood pressure 141 mm[Hg] Mitch Neri MD Work Phone: [facility] 03-19-2024 09:01-0400 Body mass index (BMI) [Ratio] 52.73 kg/m2 Josef Austin MD Work Phone: [facility] 03-19-2024 09:01-0400 Body temperature 97.2 [degF] Josef Austin MD Work Phone: [facility] 03-19-2024 09:01-0400 Body weight 123.1 kg Josef Austin MD Work Phone: [facility] 03-19-2024 09:01-0400 Diastolic blood pressure 71 mm[Hg] Josef Austin MD Work Phone: [facility] 03-19-2024 09:01-0400 Heart rate 72 /min Josef Austin MD Work Phone: [facility] 03-19-2024 09:01-0400 Respiratory rate 18 /min Josef Austin MD Work Phone: [facility] 03-19-2024 09:01-0400 SaO2% (BldA) [Mass fraction] 99 % Josef Austin MD Work Phone: [facility] 03-19-2024 09:01-0400 Systolic blood pressure 159 mm[Hg] Josef Austin MD Work Phone: [facility] 03-11-2024 09:16-0400 Body mass index (BMI) [Ratio] 52.47 kg/m2 Josef Austin MD Work Phone: [facility] 03-11-2024 09:16-0400 Body temperature 97.9 [degF] Josef Austin MD Work Phone: [facility] 03-11-2024 09:16-0400 Body weight 122.5 kg Josef Austin MD Work Phone: [facility] 03-11-2024 09:16-0400 Diastolic blood pressure 80 mm[Hg] Josef Austin MD Work Phone: [facility] 03-11-2024 09:16-0400 Heart rate 70 /min Josef Austin MD Work Phone: [facility] 03-11-2024 09:16-0400 Respiratory rate 18 /min Josef Austin MD Work Phone: [facility] 03-11-2024 09:16-0400 SaO2% (BldA) [Mass fraction] 98 % Josef Austin MD Work Phone: [facility] 03-11-2024 09:16-0400 Systolic blood pressure 141 mm[Hg] Josef Austin MD Work Phone: [facility] 03-03-2024 15:58-0400 Body height 152.8 cm Mitch Neri MD Work Phone: [facility] 03-03-2024 15:58-0400 Body mass index (BMI) [Ratio] 52.85 kg/m2 Mitch Neri MD Work Phone: [facility] 03-03-2024 15:58-0400 Body temperature 98.01 [degF] Mitch Neri MD Work Phone: [facility] 03-03-2024 15:58-0400 Body weight 123.4 kg Mitch Neri MD Work Phone: [facility] 03-03-2024 15:58-0400 Diastolic blood pressure 83 mm[Hg] Mitch Neri MD Work Phone: [facility] 03-03-2024 15:58-0400 Heart rate 71 /min Mitch Neri MD Work Phone: [facility] 03-03-2024 15:58-0400 Respiratory rate 16 /min Mitch Neri MD Work Phone: [facility] 03-03-2024 15:58-0400 SaO2% (BldA) [Mass fraction] 96 % Mitch Neri MD Work Phone: [facility] 03-03-2024 15:58-0400 Systolic blood pressure 157 mm[Hg] Mitch Neri MD Work Phone: [facility] 02-07-2024 10:06-0400 Body mass index (BMI) [Ratio] 51.61 kg/m2 Josef Austin MD Work Phone: [facility] 02-07-2024 10:06-0400 Body temperature 96.91 [degF] Josef Austin MD Work Phone: [facility] 02-07-2024 10:06-0400 Body weight 120.5 kg Josef Austin MD Work Phone: [facility] 02-07-2024 10:06-0400 Diastolic blood pressure 57 mm[Hg] Josef Austin MD Work Phone: [facility] 02-07-2024 10:06-0400 Heart rate 75 /min Josef Austin MD Work Phone: [facility] 02-07-2024 10:06-0400 Respiratory rate 18 /min Josef Austin MD Work Phone: [facility] 02-07-2024 10:06-0400 SaO2% (BldA) [Mass fraction] 96 % Josef Austin MD Work Phone: [facility] 02-07-2024 10:06-0400 Systolic blood pressure 105 mm[Hg] Josef Austin MD Work Phone: [facility] 01-21-2024 13:53-0400 Body height 152.8 cm Mitch Neri MD Work Phone: [facility] 01-21-2024 13:53-0400 Body mass index (BMI) [Ratio] 51.14 kg/m2 Mitch Neri MD Work Phone: [facility] 01-21-2024 13:53-0400 Body temperature 97.7 [degF] Mitch Neri MD Work Phone: [facility] 01-21-2024 13:53-0400 Body weight 119.4 kg Mitch Neri MD Work Phone: [facility] 01-21-2024 13:53-0400 Diastolic blood pressure 75 mm[Hg] Mitch Neri MD Work Phone: [facility] 01-21-2024 13:53-0400 Heart rate 109 /min Mitch Neri MD Work Phone: [facility] 01-21-2024 13:53-0400 Respiratory rate 16 /min Mitch Neri MD Work Phone: [facility] 01-21-2024 13:53-0400 SaO2% (BldA) [Mass fraction] 98 % Mitch Neri MD Work Phone: [facility] 01-21-2024 13:53-0400 Systolic blood pressure 131 mm[Hg] Mitch Neri MD Work Phone: [facility] 01-14-2024 12:55-0400 Body height 152.8 cm Cathy Yokasta PA-C Work Phone: [facility] 01-14-2024 12:55-0400 Body mass index (BMI) [Ratio] 51.57 kg/m2 Cathy Yokasta PA-C Work Phone: [facility] 01-14-2024 12:55-0400 Body temperature 97.7 [degF] Cathy Yokasta PA-C Work Phone: [facility] 01-14-2024 12:55-0400 Body weight 120.4 kg Cathy Yokasta PA-C Work Phone: [facility] 01-14-2024 12:55-0400 Diastolic blood pressure 71 mm[Hg] Cathy Yokasta PA-C Work Phone: [facility] 01-14-2024 12:55-0400 Heart rate 82 /min Cathy Yokasta PA-C Work Phone: [facility] 01-14-2024 12:55-0400 Respiratory rate 16 /min Cathy Yokasta PA-C Work Phone: [facility] 01-14-2024 12:55-0400 SaO2% (BldA) [Mass fraction] 100 % Cathy Yokasta PA-C Work Phone: [facility] 01-14-2024 12:55-0400 Systolic blood pressure 128 mm[Hg] Cathy Yokasta PA-C Work Phone: [facility] 01-07-2024 12:51-0400 Body mass index (BMI) [Ratio] 51.05 kg/m2 Mitch Neri MD Work Phone: [facility] 01-07-2024 12:51-0400 Body temperature 97.9 [degF] Mitch Neri MD Work Phone: [facility] 01-07-2024 12:51-0400 Body weight 119.2 kg Mitch Neri MD Work Phone: [facility] 01-07-2024 12:51-0400 Diastolic blood pressure 44 mm[Hg] Mitch Neri MD Work Phone: [facility] 01-07-2024 12:51-0400 Heart rate 86 /min Mitch Neri MD Work Phone: [facility] 01-07-2024 12:51-0400 Respiratory rate 18 /min Mitch Neri MD Work Phone: [facility] 01-07-2024 12:51-0400 SaO2% (BldA) [Mass fraction] 97 % Mitch Neri MD Work Phone: [facility] 01-07-2024 12:51-0400 Systolic blood pressure 116 mm[Hg] Mitch Neri MD Work Phone: [facility] 01-06-2024 10:20-0400 Body height 157.48 cm [facility] 01-06-2024 10:20-0400 Body mass index (BMI) [Ratio] 47.7 kg/m2 [facility] 01-06-2024 10:20-0400 Body temperature 97.2 [degF] [facility] 01-06-2024 10:20-0400 Body weight 118.44 kg [facility] 01-06-2024 10:20-0400 Diastolic blood pressure 91 mm[Hg] [facility] 01-06-2024 10:20-0400 Heart rate 118 /min [facility] 01-06-2024 10:20-0400 Respiratory rate 20 /min [facility] 01-06-2024 10:20-0400 SaO2% (BldA) [Mass fraction] 98 % [facility] 01-06-2024 10:20-0400 Systolic blood pressure 146 mm[Hg] [facility] 12-31-2023 11:20-0400 Body temperature 98.29 [degF] Chair Francine Work Phone: [facility] 12-31-2023 11:20-0400 Diastolic blood pressure 82 mm[Hg] Chair Francine Work Phone: [facility] 12-31-2023 11:20-0400 Heart rate 75 /min Chair Butterfield Work Phone: [facility] 12-31-2023 11:20-0400 Respiratory rate 16 /min Chair Francine Work Phone: [facility] 12-31-2023 11:20-0400 SaO2% (BldA) [Mass fraction] 94 % Chair Francine Work Phone: [facility] 12-31-2023 11:20-0400 Systolic blood pressure 120 mm[Hg] Chair Butterfield Work Phone: [facility] 12-24-2023 10:01-0400 Body height 152.8 cm Mitch Neri MD Work Phone: [facility] 12-24-2023 10:01-0400 Body mass index (BMI) [Ratio] 51.01 kg/m2 Mitch Neri MD Work Phone: [facility] 12-24-2023 10:01-0400 Body temperature 97.11 [degF] Mitch Neri MD Work Phone: [facility] 12-24-2023 10:01-0400 Body weight 119.1 kg Mitch Neri MD Work Phone: [facility] 12-24-2023 10:01-0400 Diastolic blood pressure 60 mm[Hg] Mitch Neri MD Work Phone: [facility] 12-24-2023 10:01-0400 Heart rate 72 /min Mitch Neri MD Work Phone: [facility] 12-24-2023 10:01-0400 Respiratory rate 16 /min Mitch Neri MD Work Phone: [facility] 12-24-2023 10:01-0400 SaO2% (BldA) [Mass fraction] 96 % Mitch Neri MD Work Phone: [facility] 12-24-2023 10:01-0400 Systolic blood pressure 129 mm[Hg] Mitch Neri MD Work Phone: [facility] 12-10-2023 09:51-0400 Body height 152.8 cm Brianna Renner COOKER TENDER.[employer]CI[employer] Work Phone: [facility] 12-10-2023 09:51-0400 Body temperature 97.81 [degF] Brianna Renner APRN.HOTEL CONCIERGE Work Phone: [facility] 12-10-2023 09:51-0400 Body weight 118.1 kg Brianna Renner APRN.HOTEL CONCIERGE Work Phone: [facility] 12-10-2023 09:51-0400 Diastolic blood pressure 80 mm[Hg] Brianna Renner COOKER TENDER.[employer] CONCIER[employer] Work Phone: [facility] 12-10-2023 09:51-0400 Heart rate 97 /min Brianna Renner COOKER TENDER.[employer]CI[employer] Work Phone: [facility] 12-10-2023 09:51-0400 Respiratory rate 18 /min Brianna Renner COOKER TENDER.[employer]CI[employer] Work Phone: [facility] 12-10-2023 09:51-0400 SaO2% (BldA) [Mass fraction] 95 % Brianna Renner COOKER TENDER.[employer]CI[employer] Work Phone: [facility] 12-10-2023 09:51-0400 Systolic blood pressure 133 mm[Hg] Brianna Renner COOKER TENDER.[employer]CI[employer] Work Phone: [facility] 12-03-2023 10:35-0400 Body height 152.8 cm Cathy Yokasta PA-C Work Phone: [facility] 12-03-2023 10:35-0400 Body temperature 97.39 [degF] Cathy Yokasta PA-C Work Phone: [facility] 12-03-2023 10:35-0400 Body weight 117.5 kg Cathy Yokasta PA-C Work Phone: [facility] 12-03-2023 10:35-0400 Diastolic blood pressure 67 mm[Hg] Cathy Yokasta PA-C Work Phone: [facility] 12-03-2023 10:35-0400 Heart rate 77 /min Cathy Yokasta PA-C Work Phone: [facility] 12-03-2023 10:35-0400 Respiratory rate 16 /min Cathy Yokasta PA-C Work Phone: [facility] 12-03-2023 10:35-0400 SaO2% (BldA) [Mass fraction] 95 % Cathy Yokasta PA-C Work Phone: [facility] 12-03-2023 10:35-0400 Systolic blood pressure 137 mm[Hg] Cathy Templeton PA-C Work Phone: [facility] 11-27-2023 14:54-0400 Body height 157.5 cm Leo Gerard COOKER TENDER-[employer]CI[employer]GE Work Phone: [facility] 11-27-2023 14:54-0400 Body mass index (BMI) [Ratio] 48.05 kg/m2 Leo Gerard [employer] TENDER[employer] Work Phone: [facility] 11-27-2023 14:54-0400 Body temperature 99 [degF] Leo Gerard C[employer] TENDER[employer]CI[employer]GE Work Phone: [facility] 11-27-2023 14:54-0400 Body weight 119.2 kg Leo Gerard [employer] TENDER[employer] Work Phone: [facility] 11-27-2023 14:54-0400 Diastolic blood pressure 78 mm[Hg] Leo Gerard [employer] TENDER[employer]CI[employer]GE Work Phone: [facility] 11-27-2023 14:54-0400 Heart rate 75 /min Leo Gerard [employer] T[employer]ER[employer] Work Phone: [facility] 11-27-2023 14:54-0400 SaO2% (BldA) [Mass fraction] 96 % Leo Gerard [employer] T[employer]ER[employer] Work Phone: [facility] 11-27-2023 14:54-0400 Systolic blood pressure 138 mm[Hg] Leo Gerard COOKER TENDER[employer]CI[employer] Work Phone: [facility] 11-26-2023 11:14-0400 Body height 153.8 cm Mitch Neri MD Work Phone: [facility] 11-26-2023 11:14-0400 Body temperature 98.01 [degF] Mitch Neri MD Work Phone: [facility] 11-26-2023 11:14-0400 Body weight 119.7 kg Mitch Neri MD Work Phone: [facility] 11-26-2023 11:14-0400 Diastolic blood pressure 60 mm[Hg] Mitch Neri MD Work Phone: [facility] 11-26-2023 11:14-0400 Heart rate 84 /min Mitch Neri MD Work Phone: [facility] 11-26-2023 11:14-0400 Respiratory rate 16 /min Mitch Neri MD Work Phone: [facility] 11-26-2023 11:140400 SaO2% (BldA) [Mass fraction] 98 % Mitch Neri MD Work Phone: [facility] 11-26-2023 11:14-0400 Systolic blood pressure 123 mm[Hg] Mitch Neri MD Work Phone: [facility] 11-14-2023 15:19-0400 Body height 157.5 cm Leo Gerard [employer] T[employer]ER[employer] Work Phone: [facility] 11-14-2023 15:19-0400 Body mass index (BMI) [Ratio] 49.01 kg/m2 Leo Gerard COOK[employer] TENDER[employer] Work Phone: [facility] 11-14-2023 15:19-0400 Body temperature 98.2 [degF] Leo Gerard COOKER TENDER[employer]CIER[employer] Work Phone: [facility] 11-14-2023 15:19-0400 Body weight 121.56 kg Leo Gerard C[employer] TENDER[employer] Work Phone: [facility] 11-14-2023 15:19-0400 Diastolic blood pressure 80 mm[Hg] Leo Gerard COOK[employer] TENDER[employer] Work Phone: [facility] 11-14-2023 15:19-0400 Heart rate 82 /min Leo Gerard [employer] T[employer]ER[employer] Work Phone: [facility] 11-14-2023 15:19-0400 SaO2% (BldA) [Mass fraction] 93 % Leo Gerard COOK[employer] T[employer]ER[employer] Work Phone: [facility] 11-14-2023 15:19-0400 Systolic blood pressure 140 mm[Hg] Leo Gerard C[employer] TENDER[employer]CIER[employer] Work Phone: [facility] 11-05-2023 10:44-0400 SaO2% (BldA) [Mass fraction] 90 % Brianna Renner APRN.HOTEL CONCIERGE Work Phone: [facility] 11-05-2023 10:42-0400 Diastolic blood pressure 77 mm[Hg] Chair Francine Work Phone: [facility] 11-05-2023 10:42-0400 Systolic blood pressure 143 mm[Hg] Chair Francine Work Phone: [facility] 11-05-2023 09:44-0400 Body height 153.8 cm Brianna Renner APRN.H[employer] CONCIERGE Work Phone: [facility] 11-05-2023 09:44-0400 Body temperature 97.3 [degF] Brianna Renner APRN.HOTEL CONCIERGE Work Phone: [facility] 11-05-2023 09:44-0400 Body weight 123.8 kg Brianna Renner APRN.HOTEL CONCIERGE Work Phone: [facility] 11-05-2023 09:44-0400 Diastolic blood pressure 78 mm[Hg] Brianna Renner APRN.HOTEL CONCIERGE Work Phone: [facility] 11-05-2023 09:44-0400 Heart rate 84 /min Brianna Renner APRN.HOTEL CONCIERGE Work Phone: [facility] 11-05-2023 09:44-0400 Respiratory rate 24 /min Brianna Renner APRN.HOT[employer] CONCIERGE Work Phone: [facility] 11-05-2023 09:44-0400 Systolic blood pressure 168 mm[Hg] Brianna Renner APRN.CNP Work Phone: [facility] 10-23-2023 13:38-0500 Body temperature 97.9 [degF] Lab[facility] [place] Work Phone: [facility] 10-23-2023 13:38-0500 Diastolic blood pressure 84 mm[Hg] [facility] [place] Work Phone: [facility] 10-23-2023 13:38-0500 Heart rate 71 /min Lab[facility] [place] Work Phone: [facility] 10-23-2023 13:38-0500 Respiratory rate 18 /min [facility] [place] Work Phone: [facility] 10-23-2023 13:38-0500 SaO2% (BldA) [Mass fraction] 95 % [facility] [place] Work Phone: [facility] 10-23-2023 13:38-0500 Systolic blood pressure 211 mm[Hg] [facility] [place] Work Phone: [facility] 10-22-2023 09:09-0500 Body height 153.8 cm Mitch Neri MD Work Phone: [facility] 10-22-2023 09:09-0500 Body temperature 97.9 [degF] Mitch Neri MD Work Phone: [facility] 10-22-2023 09:09-0500 Body weight 121.7 kg Mitch Neri MD Work Phone: [facility] 10-22-2023 09:09-0500 Diastolic blood pressure 66 mm[Hg] Mitch Neri MD Work Phone: [facility] 10-22-2023 09:09-0500 Heart rate 72 /min Mitch Neri MD Work Phone: [facility] 10-22-2023 09:09-0500 Respiratory rate 16 /min Mitch Neri MD Work Phone: [facility] 10-22-2023 09:09-0500 SaO2% (BldA) [Mass fraction] 95 % Mitch Neri MD Work Phone: [facility] 10-22-2023 09:09-0500 Systolic blood pressure 185 mm[Hg] Mitch Neri MD Work Phone: [facility] 10-09-2023 10:28-0500 Body height 157.5 cm Leo Gerard C[employer] TENDER-[employer]GE Work Phone: [facility] 10-09-2023 10:28-0500 Body mass index (BMI) [Ratio] 51.03 kg/m2 Leo Gerard COOKER TENDER-[employer] CON[employer]ERGE Work Phone: [facility] 10-09-2023 10:28-0500 Body temperature 98.4 [degF] Leo Emersons COOKER TENDER-[employer] CONCIERGE Work Phone: [facility] 10-09-2023 10:28-0500 Body weight 126.55 kg Leo Emersons C[employer] TENDER[employer]ERGE Work Phone: [facility] 10-09-2023 10:28-0500 Diastolic blood pressure 78 mm[Hg] Leo Gerard COOKER TENDER-H[employer] CONCIERGE Work Phone: [facility] 10-09-2023 10:28-0500 Heart rate 83 /min Leo Gerard COOK[employer] TENDER[employer] Work Phone: [facility] 10-09-2023 10:28-0500 SaO2% (BldA) [Mass fraction] 98 % Leo Gerard COOK[employer] TENDER[employer]CIERGE Work Phone: [facility] 10-09-2023 10:28-0500 Systolic blood pressure 158 mm[Hg] Leo Gerard COOKER TENDER-H[employer] CONCIERGE Work Phone: [facility] 09-26-2023 08:04-0500 Body height 157.5 cm [facility] 1 Work Phone: [facility] 09-26-2023 08:04-0500 Body temperature 98.4 [degF] Pacc 1 Work Phone: [facility] 09-26-2023 08:04-0500 Body weight 124.5 kg Pacc 1 Work Phone: [facility] 09-26-2023 08:04-0500 Diastolic blood pressure 56 mm[Hg] Pacc 1 Work Phone: [facility] 09-26-2023 08:04-0500 Heart rate 74 /min Pacc 1 Work Phone: [facility] 09-26-2023 08:04-0500 Respiratory rate 20 /min Pacc 1 Work Phone: [facility] 09-26-2023 08:04-0500 SaO2% (BldA) [Mass fraction] 94 % Pacc 1 Work Phone: [facility] 09-26-2023 08:04-0500 Systolic blood pressure 152 mm[Hg] Pacc 1 Work Phone: [facility] 08-06-2023 08:35-0500 Body temperature 96.8 [degF] Mendoza Yang MD Work Phone: [facility] 08-06-2023 08:35-0500 Body weight 123.78 kg Mendoza Yang MD Work Phone: [facility] 08-06-2023 08:35-0500 Diastolic blood pressure 63 mm[Hg] Mendoza Yang MD Work Phone: [facility] 08-06-2023 08:35-0500 Heart rate 65 /min Mendoza Yang MD Work Phone: [facility] 08-06-2023 08:35-0500 Respiratory rate 20 /min Mendoza Yang MD Work Phone: [facility] 08-06-2023 08:35-0500 SaO2% (BldA) [Mass fraction] 96 % Mendoza Yang MD Work Phone: [facility] 08-06-2023 08:35-0500 Systolic blood pressure 169 mm[Hg] Mendoza Yang MD Work Phone: [facility] 07-26-2023 11:55-0500 Body height 160 cm Pacc 4 Work Phone: [facility] 07-26-2023 11:55-0500 Body temperature 97.81 [degF] Pacc 4 Work Phone: [facility] 07-26-2023 11:55-0500 Body weight 126.8 kg Pacc 4 Work Phone: [facility] 07-26-2023 11:55-0500 Diastolic blood pressure 74 mm[Hg] Pacc 4 Work Phone: [facility] 07-26-2023 11:55-0500 Heart rate 69 /min Pacc 4 Work Phone: [facility] 07-26-2023 11:55-0500 Respiratory rate 17 /min Pacc 4 Work Phone: [facility] 07-26-2023 11:55-0500 SaO2% (BldA) [Mass fraction] 95 % Pacc 4 Work Phone: [facility] 07-26-2023 11:55-0500 Systolic blood pressure 174 mm[Hg] Pacc 4 Work Phone: [facility] 02-28-2023 12:30-0400 Diastolic blood pressure 80 mm[Hg] DO Janet Gilma Work Phone: [facility] 02-28-2023 12:30-0400 Heart rate 62 /min DO Janet Gilma Work Phone: [facility] 02-28-2023 12:30-0400 Respiratory rate 16 /min DO Janet Gilma Work Phone: [facility] 02-28-2023 12:30-0400 SaO2% (BldA) [Mass fraction] 100 % DO Janet Gilma Work Phone: [facility] 02-28-2023 12:30-0400 Systolic blood pressure 184 mm[Hg] DO Janet Gilma Work Phone: [facility] 02-28-2023 09:53-0400 Body height 157.48 cm DO Janet Gilma Work Phone: [facility] 02-28-2023 09:53-0400 Body weight 127 kg DO Janet Gilma Work Phone: [facility] 12-07-2022 17:10-0400 Body height 154.94 cm Debbie Ashley Other [employer] Other 12-07-2022 17:10-0400 Body mass index (BMI) [Ratio] 52.22 kg/m2 Dbebie Ashley Other [employer] Other 12-07-2022 17:10-0400 Body temperature 100 [degF] Debbie Ashley Other [employer] Other 12-07-2022 17:10-0400 Body weight 125.38 kg Debbie Antoinemond Other [employer] Other 12-07-2022 17:10-0400 Diastolic blood pressure 93 mm[Hg] Debbie Ashley Other [employer] Other 12-07-2022 17:10-0400 Respiratory rate 20 /min Debbie Ashley Other [employer] Other 12-07-2022 17:10-0400 SaO2% (BldA) [Mass fraction] 95 % Debbie Ashley Other [employer] Other 12-07-2022 17:10-0400 Systolic blood pressure 142 mm[Hg] Debbie Ramirez Other [employer] Other 12-03-2022 18:30-0400 Body height 154.94 cm Karen Parrish Other [employer] Other 12-03-2022 18:30-0400 Body mass index (BMI) [Ratio] 52.9 kg/m2 Karen Parrish Other [employer] Other 12-03-2022 18:30-0400 Body temperature 100 [degF] Karen Parrish Other [employer] Other 12-03-2022 18:30-0400 Body weight 127.01 kg Karen Parrish Other [employer] Other 12-03-2022 18:30-0400 Diastolic blood pressure 97 mm[Hg] Karen Parrish Other [employer] Other 12-03-2022 18:30-0400 Respiratory rate 20 /min Karen Parrish Other [employer] Other 12-03-2022 18:30-0400 SaO2% (BldA) [Mass fraction] 93 % Karen Parrish Other [employer] Other 12-03-2022 18:30-0400 Systolic blood pressure 189 mm[Hg] Karen Parrish Other [employer] Other 06-17-2022 10:25-0400 Body height 154.94 cm Dayanna Schumacher Other [employer] Other 06-17-2022 10:25-0400 Body mass index (BMI) [Ratio] 52.9 kg/m2 Dayanna Schumacher Other [employer] Other 06-17-2022 10:25-0400 Body temperature 98.6 [degF] Dayanna Schumacher Other [employer] Other 06-17-2022 10:25-0400 Body weight 127.01 kg Dayanna Schumacher Other [employer] Other 06-17-2022 10:25-0400 Diastolic blood pressure 90 mm[Hg] Dayanna Schumacher Other [employer] Other 06-17-2022 10:25-0400 Respiratory rate 20 /min Dayanna Schumacher Other [employer] Other 06-17-2022 10:25-0400 SaO2% (BldA) [Mass fraction] 98 % Dayanna Schumacher Other [employer] Other 06-17-2022 10:25-0400 Systolic blood pressure 190 mm[Hg] Dayanna Schumacher Other [employer] Other 04-03-2022 13:17-0400 Body height 157.5 cm Shailesh Izquierdo MD Work Phone: [facility] 04-03-2022 13:17-0400 Body weight 127.01 kg Shailesh Izquierdo MD Work Phone: [facility] 03-19-2022 15:23-0400 Body weight 125.83 kg Alberto Monsalve DO Work Phone: [facility] 03-19-2022 15:23-0400 Diastolic blood pressure 81 mm[Hg] Alberto Monsalve DO Work Phone: [facility] 03-19-2022 15:23-0400 Heart rate 104 /min Alberto Monsalve DO Work Phone: [facility] 03-19-2022 15:23-0400 Systolic blood pressure 174 mm[Hg] Alberto Monsalve DO Work Phone: [facility] 12-08-2021 08:25-0400 Body height 157.5 cm John Dc MD Work Phone: [facility] 12-08-2021 08:25-0400 Body weight 124.74 kg John Dc MD Work Phone: [facility] 12-08-2021 08:25-0400 Diastolic blood pressure 79 mm[Hg] John Dc MD Work Phone: [facility] 12-08-2021 08:25-0400 Heart rate 73 /min John Dc MD Work Phone: [facility] 12-08-2021 08:25-0400 Systolic blood pressure 128 mm[Hg] John Dc MD Work Phone: [facility] Encounters Encounter Date Encounter Type Care Provider Facility Start: 07-22-2024 End: 07-22-2024 Refill Sunny Jenkins MD Work Phone: [facility] Comment on above: Hypertension, unspec ified type Start: 07-18-2024 End: 07-20-2024 Refill Mitch Neri MD Work Phone: Hematology Comment on above: Refill Request Start: 07-17-2024 End: 07-17-2024 ambulatory MITCH NERI Facility:[facility] Start: 07-17-2024 Encounter for other preprocedural examination SUNNY JENKINS [facility] Start: 07-17-2024 End: 07-17-2024 Nursing evaluation of patient and report Irma Solano Work Phone: Hematology/Oncology Comment on above: Pre-op testing Start: 07-17-2024 End: 07-17-2024 Patient encounter status Irma Solano Work Phone: [facility] Start: 07-16-2024 End: 07-16-2024 ambulatory Muna Fox [facility] Start: 07-16-2024 End: 07-16-2024 Patient encounter procedure Mitch Neri MD Work Phone: Hematology Comment on above: Invasive lobular car cinoma of breast in female (HCC) (Primary Dx) SPP Oral Oncology/he matology - Treatment Referral (Kisqali 400 mg); Insurance Authorization ([place] pending) Start: 07-15-2024 End: 07-15-2024 ambulatory SUNNY JENKINS Facility:[facility] Start: 07-15-2024 End: 07-15-2024 Patient encounter procedure Sandy Mcgregor MD, PhD Work Phone: Endocrinology Comment on above: Multiple thyroid nod ules (Primary Dx) Start: 07-14-2024 End: 07-14-2024 Patient encounter procedure Rakesh Palma OD Work Phone: Ophthalmology Comment on above: Status post cataract surgery, right (Primary Dx); Status post cataract surgery, left Start: 07-14-2024 End: 07-14-2024 ambulatory Rheu Chair 2 Peg Work Phone: Infusion Comment on above: Invasive lobular car cinoma of breast in female (HCC) Start: 07-11-2024 End: 07-16-2024 Refill Sunny Jenkins MD Work Phone: [facility] Comment on above: Hip pain, unspecifie d laterality Start: 07-06-2024 End: 07-07-2024 Patient encounter procedure Mitch Neri MD Work Phone: Hematology Comment on above: Bloodwork results Start: 07-06-2024 End: 07-07-2024 ambulatory Lab/[facility] Escamilla Work Phone: Hematology/Oncology Comment on above: Invasive lobular car cinoma of breast in female (HCC) Start: 06-30-2024 End: 07-01-2024 ambulatory Sandy Mcgregor MD, PhD Work Phone: Endocrinology Comment on above: Thyroid ultrasound Start: 06-23-2024 End: 06-23-2024 Telephone encounter Marlee Myers RN Hematology Comment on above: Results; Orders Start: 06-23-2024 End: 06-23-2024 ambulatory SUNNY Lucas [facility] Facility:[facility] Start: 06-23-2024 End: 06-23-2024 Patient encounter procedure Rakesh Palma OD Work Phone: Ophthalmology Comment on above: Status post cataract surgery, right (Primary Dx); Status post cataract surgery, left Start: 06-21-2024 End: 06-21-2024 Refill Sunny Jenkins MD Work Phone: [facility] Comment on above: Edema, unspecified t ype Start: 06-18-2024 End: 06-18-2024 Subsequent hospital visit by physician [facility] Comment on above: Multiple thyroid nod ules [E04.2] Start: 06-18-2024 End: 06-18-2024 ambulatory Poonam Oglesby RT(R) Radiology Comment on above: Radiology US Start: 06-18-2024 End: 06-18-2024 Patient encounter procedure Rakesh Palma OD Work Phone: Ophthalmology Comment on above: Status post cataract surgery, right (Primary Dx); Status post cataract surgery, left Start: 06-17-2024 End: 06-17-2024 ambulatory SUNNY Saunders [facility] Facility:[facility] Start: 06-10-2024 End: 06-14-2024 Telephone encounter Merary Resendiz CNA [facility] Comment on above: Referral Start: 06-10-2024 End: 06-10-2024 Patient encounter procedure Sunny Jenkins MD Work Phone: [facility] Comment on above: Medicare annual well ness visit, subsequent (Primary Dx); Seropositive rheumatoid arthritis ([facility]); Hip pain, unspecified laterality; Polyarthralgia Start: 06-10-2024 End: 06-10-2024 ambulatory ANISA Saunders [facility] Start: 06-10-2024 Encounter for genera l adult medical examination without abnormal findings [facility] Start: 06-09-2024 End: 06-09-2024 ambulatory [facility] Facility:[facility] Start: 06-09-2024 End: 06-09-2024 Patient encounter procedure Rakesh Palma OD Work Phone: Ophthalmology Comment on above: Status post cataract surgery, left (Primary Dx); Combined forms of age-related cataract of right eye Start: 06-03-2024 End: 06-04-2024 Telephone encounter Nia Snider RN Hematology Comment on above: Medication Dosage Ad justment (Verzenio) Hypertension, unspec ified type Start: 06-03-2024 End: 06-03-2024 Patient encounter procedure Mitch Neri MD Work Phone: Hematology Comment on above: Invasive lobular car cinoma of breast in female (HCC) (Primary Dx) Start: 06-03-2024 End: 06-03-2024 ambulatory [facility] Facility:[facility] Start: 06-03-2024 End: 06-03-2024 ambulatory [facility] Facility:[facility] Start: 06-03-2024 End: 06-03-2024 Patient encounter procedure Johanne Fitzgerald MD Work Phone: Ophthalmology Comment on above: Follow-up examinatio n following surgery (Primary Dx) Start: 06-02-2024 End: 06-02-2024 ambulatory [facility] Facility:[facility] Start: 06-01-2024 End: 06-01-2024 Refill Kalyani Rachel [facility] Comment on above: Hypertension, unspec ified type Invasive lobular car cinoma of breast in female (HCC) (Primary Dx); Multiple thyroid nodules Start: 05-27-2024 ambulatory Josfe Austin Facility:[facility] Start: 05-26-2024 ambulatory [facility] Start: 05-19-2024 Encounter for other preprocedural examination [facility] Start: 05-19-2024 End: 05-19-2024 PAT [facility] 1 Work Phone: Pre Anesthesia Comment on above: Pre-op evaluation (P rimary Dx); Morbid obesity (HCC); Multiple thyroid nodules; Pulmonary embolism, other, unspecified chronicity, unspecified whether acute cor pulmonale present (HCC); Invasive lobular carcinoma of breast in female (HCC); Primary hypertension; Mixed hyperlipidemia; Palpitations; PETERSON (dyspnea on exertion); Disorder of mitral valve; Rheumatoid arthritis, involving unspecified site, unspecified whether rheumatoid factor present (HCC); Gastroesophageal reflux disease, unspecified whether esophagitis present Combined forms of ag e-related cataract of both eyes (Primary Dx) Start: 05-19-2024 End: 05-19-2024 Preprocedural examination done [facility] 1 Work Phone: [facility] Work Phone: Start: 05-15-2024 End: 05-15-2024 ambulatory Chemo Ed [facility] Rej Hematology Start: 05-15-2024 End: 05-15-2024 Patient encounter procedure Chemo Rej Hematology Comment on above: Oral Anti-cancer Age nt Education (Verzenio) Start: 05-05-2024 End: 05-05-2024 Patient encounter procedure Sandy Mcgregor MD, PhD Work Phone: Endocrinology Comment on above: Multiple thyroid nod ules (Primary Dx) Start: 05-05-2024 End: 05-05-2024 ambulatory Rheu Chair 4 Peg Work Phone: Infusion Comment on above: Invasive lobular car cinoma of breast in female (HCC) Start: 04-30-2024 End: 05-07-2024 Telephone encounter Josef Austin MD Work Phone: Radiation Oncology Comment on above: medical records Start: 04-23-2024 End: 04-24-2024 ambulatory Mitch Neri MD Work Phone: Hematology Start: 04-23-2024 End: 04-24-2024 Patient encounter procedure Mitch Neri MD Work Phone: Hematology Comment on above: Verzimio prescriptio n Start: 04-22-2024 End: 04-22-2024 ambulatory Muna [facility] Plan[facility]ef[facility] Start: 04-22-2024 End: 04-22-2024 Patient encounter procedure Muna Ruddy [facility] Comment on above: SPP Oral Oncology/he matology - Treatment Referral (Verzenio 150mg); Insurance Authorization ([place] pending) Start: 04-21-2024 End: 04-22-2024 Telephone encounter Isadora Wright RN Radiation Oncology Comment on above: Patient Update (Post Radiation Nurse Call ) Start: 04-21-2024 End: 04-21-2024 ambulatory Treatment 11 Adolfo Rej Work Phone: Hematology Start: 04-21-2024 End: 04-21-2024 Patient encounter procedure Mitch Neri MD Work Phone: Hematology Comment on above: Invasive lobular car cinoma of breast in female (HCC) (Primary Dx) Invasive lobular car cinoma of breast in female (HCC) (Primary Dx); Body mass index (BMI) 50.0-59.9, adult (HCC) Start: 04-13-2024 End: 04-13-2024 ambulatory [facility] Start: 03-24-2024 Patient encounter procedure Josef Austin MD Work Phone: Radiation Oncology Start: 03-24-2024 Radiation Oncology Note Josef velazco MD Work Phone: Radiation Oncology Comment on above: Completion Note Start: 03-24-2024 End: 03-24-2024 ambulatory [facility] Facility:[facility] Start: 03-23-2024 End: 03-23-2024 [facility] Facility:[facility] Start: 03-23-2024 End: 03-23-2024 Patient encounter procedure Johanne Fitzgerald MD Work Phone: Ophthalmology Comment on above: Combined forms of ag e-related cataract of both eyes (Primary Dx) Start: 03-23-2024 End: 03-23-2024 ambulatory [facility] Facility:[facility] Start: 03-20-2024 End: 03-20-2024 ambulatory MUHAMID M GREGORY Facility:[facility] Start: 03-19-2024 End: 03-19-2024 Patient encounter procedure Josef Austin MD Work Phone: Radiation Oncology Comment on above: Invasive lobular car cinoma of breast in female (HCC) (Primary Dx) Start: 03-19-2024 End: 03-19-2024 ambulatory MUHAMID M GREGORY Facility:[facility] Start: 03-18-2024 End: 03-18-2024 ambulatory MUHAMID M GREGORY Facility:[facility] Start: 03-17-2024 End: 03-17-2024 ambulatory MUHAMID M GREGORY Facility:[facility] Start: 03-16-2024 End: 03-16-2024 ambulatory MUHAMID M GREGORY Facility:[facility] Start: 03-13-2024 End: 03-13-2024 ambulatory MUHAMID M GREGORY Facility:[facility] Start: 03-12-2024 End: 03-12-2024 ambulatory MUHAMID M GREGORY Facility:[facility] Start: 03-11-2024 End: 03-11-2024 Patient encounter procedure Josef Austin MD Work Phone: Radiation Oncology Comment on above: Invasive lobular car cinoma of breast in female (HCC) (Primary Dx) Start: 03-11-2024 End: 03-11-2024 ambulatory JOSEF AUSTIN Facility:[facility] Start: 03-10-2024 End: 03-10-2024 ambulatory MUHAMID M GREGORY Facility:[facility] Start: 03-09-2024 End: 03-09-2024 ambulatory MUHAMID M GREGORY Facility:[facility] Start: 03-06-2024 End: 03-06-2024 ambulatory MUHAMID M GREGORY Facility:[facility] Start: 03-05-2024 End: 03-05-2024 ambulatory MUHAMID M GREGORY Facility:[facility] Start: 03-04-2024 Telephone encounter Yvonne Baumann RN Work Phone: Hematology/Oncology Comment on above: Care Coordination (T ransition of care) Start: 03-04-2024 End: 03-04-2024 ambulatory [facility] Facility:[facility] Start: 03-03-2024 End: 03-03-2024 Patient encounter procedure Mitch Neri MD Work Phone: Hematology/Oncology Start: 03-03-2024 End: 03-03-2024 ambulatory Lab/Port Adolfo Escamilla Work Phone: Hematology/Oncology Comment on above: Invasive lobular car cinoma of breast in female (HCC) Invasive lobular car cinoma of breast in female (HCC) (Primary Dx); Body mass index (BMI) 50.0-59.9, adult (HCC); Encounter for screening for osteoporosis; Asymptomatic postmenopausal status Start: 03-03-2024 Telephone encounter Mitch beebe MD Work Phone: Cancer [facility] Comment on above: Appointment Start: 02-13-2024 Telephone encounter Josef Austin MD Work Phone: Radiation Oncology Start: 02-12-2024 End: 02-12-2024 ambulatory [facility] Start: 02-11-2024 End: 03-26-2024 ambulatory OLLIE A[facility] Start: 02-07-2024 End: 02-10-2024 ambulatory Windy Jiang [facility] Radiation Oncology Comment on above: Patient Education Start: 02-07-2024 End: 02-07-2024 Patient encounter procedure Josef Austin MD Work Phone: Radiation Oncology Comment on above: Invasive lobular car cinoma of breast in female (HCC) (Primary Dx) Start: 02-07-2024 Radiation Oncology Note Josef velazco MD Work Phone: Radiation Oncology Comment on above: Simulation Note Treatment Planning Start: 02-07-2024 End: 02-07-2024 Subsequent hospital visit by physician Josef Austin MD Work Phone: Radiology Pet CT Start: 02-06-2024 Telephone encounter Yvonne Baumann RN Work Phone: Hematology/Oncology Comment on above: Care Coordination (C hange in treatment plan) Start: 01-29-2024 ambulatory Mitch Neri MD Work Phone: Hematology/Oncology Comment on above: Question on my radia tion schedule Start: 01-28-2024 End: 01-28-[address] [facility] Start: 01-28-2024 End: 01-28-[address] [facility] Start: 01-28-2024 End: 01-28-2024 ambulatory [facility] Start: 01-24-2024 End: 01-24-2024 ambulatory CATHY TEMPLETON Not Available Start: 01-22-2024 Telephone encounter Yvonne Baumann RN Work Phone: Hematology/Oncology Comment on above: Care Coordination (L ab results) Start: 01-21-2024 End: 01-21-2024 Patient encounter procedure Mitch Neri MD Work Phone: Hematology/Oncology Start: 01-21-2024 End: 01-21-2024 ambulatory Lab/Port [facility]fo Butterfield Work Phone: Hematology/Oncology Comment on above: Mass of right breast , unspecified quadrant; Invasive lobular carcinoma of breast in female (HCC); Other abnormal and inconclusive findings on diagnostic imaging of breast; Elevated transaminase level Invasive lobular car cinoma of breast in female (HCC) (Primary Dx) Couple of questions Start: 01-21-2024 Telephone encounter Mitch beebe MD Work Phone: Cancer [facility] Comment on above: Referral Information (Radiation) Start: 01-17-2024 End: 01-17-2024 ambulatory CATHY TEMPLETON [facility] Start: 01-15-2024 Telephone encounter Yvonne Baumann RN Work Phone: Hematology/Oncology Comment on above: Care Coordination (G eneral surgery consult) Start: 01-15-2024 End: 01-15-2024 ambulatory MADAY PRIETO Not Available Start: 01-14-2024 End: 01-14-2024 Office outpatient visit 25 minutes Cathy Templeton PA-C Work Phone: Hematology/Oncology Comment on above: Invasive lobular car cinoma of breast in female (HCC) (Primary Dx); Mass of right breast, unspecified quadrant; Other abnormal and inconclusive findings on diagnostic imaging of breast; Jessica infection; Diverticulitis; Cutaneous abscess of groin Start: 01-14-2024 End: 01-14-2024 ambulatory Lab/Port Ad[facility]fo Francine Work Phone: Hematology/Oncology Comment on above: Invasive lobular car cinoma of breast in female (HCC) (Primary Dx); Cutaneous abscess of groin Start: 01-07-2024 Telephone encounter Mitch beebe MD Work Phone[facility] Comment on above: Referral Information Start: 01-07-2024 End: 01-07-2024 Patient encounter procedure Mitch Neri MD Work Phone: Hematology/Oncology Start: 01-07-2024 End: 01-07-2024 ambulatory Lab/[facility]fo Francine Work Phone: Hematology/Oncology Comment on above: Invasive lobular car cinoma of breast in female (HCC) Invasive lobular car cinoma of breast in female (HCC) (Primary Dx); Cutaneous abscess of groin Start: 01-06-2024 End: 01-06-[address] [facility] Work Phone: Start: 01-06-2024 End: 01-06-2024 Patient encounter procedure [facility] Alex Work Phone: Start: 12-31-2023 Chart abstracting Mary awan RN Work Phone: Hematology/Oncology Comment on above: Research (IRB [id number] Informed Consent) Start: 12-31-2023 End: 01-01-2024 ambulatory Chair 20 Francine Work Phone: Hematology/Oncology Comment on above: Invasive lobular car cinoma of breast in female (HCC) (Primary Dx) Start: 12-24-2023 End: 12-24-2023 ambulatory Ev Cai COOKER TENDER.HOTEL CONCIERGE Work Phone: [facility] Comment on above: Invasive lobular car cinoma of breast in female (HCC) (Primary Dx); S/P mastectomy, left Start: 12-24-2023 End: 12-24-2023 Telemedicine consultation with patient Ev Cai COOKER TENDER[employer] CONCIERGE Work Phone: [facility] Start: 12-24-2023 End: 12-24-2023 Patient encounter procedure Mitch Neri MD Work Phone: Hematology/Oncology Start: 12-24-2023 End: 12-24-2023 ambulatory Lab/[facility]fo Francine Work Phone: Hematology/Oncology Comment on above: Invasive lobular car cinoma of breast in female (HCC); Jessica infection Invasive lobular car cinoma of breast in female (HCC) (Primary Dx); Stage 3a chronic kidney disease (HCC) Start: 12-24-2023 End: 12-24-2023 ambulatory EV CAI Facility:[facility] Start: 12-10-2023 End: 12-10-2023 Patient encounter procedure Brianna Renner APRN.HOTEL CONCIERGE Work Phone: FR[facility] Start: 12-10-2023 End: 12-10-2023 ambulatory Lab/Port Ad[facility]fo Francine Work Phone: Hematology/Oncology Comment on above: Invasive lobular car cinoma of breast in female (HCC) Invasive lobular car cinoma of breast in female (HCC) (Primary Dx); Jessica infection Start: 12-09-2023 Telephone encounter Yvonne Baumann RN Work Phone: Hematology/Oncology Comment on above: Care Coordination (C 1D1 treatment follow up call) Care Coordination (C linical update) Start: 12-03-2023 End: 12-03-2023 ambulatory Chair Melissa Escamilla Work Phone: Hematology/Oncology Comment on above: Invasive lobular car cinoma of breast in female (HCC) (Primary Dx) Start: 12-03-2023 End: 12-03-2023 Nursing evaluation of patient and report Yvonne Baumann RN Work Phone: Hematology/Oncology Comment on above: Invasive lobular car cinoma of breast in female (HCC) (Primary Dx) Start: 12-03-2023 End: 12-03-2023 Office outpatient visit 25 minutes Cathy Templeton PA-C Work Phone: Hematology/Oncology Comment on above: Invasive lobular car cinoma of breast in female (HCC) (Primary Dx); Jessica infection Start: 12-03-2023 End: 12-03-2023 ambulatory Lab/[facility] Ad[facility]fo Butterfield Work Phone: Hematology/Oncology Comment on above: Invasive lobular car cinoma of breast in female (HCC) Start: 11-27-2023 End: 11-27-2023 Office outpatient visit 10 minutes Leo Gerard COOKER TENDER-HOTEL CONCIERGE Work Phone: [facility] Comment on above: Intertrigo (Primary Dx); Jessica infection Start: 11-27-2023 End: 11-27-2023 ambulatory [facility] Start: 11-26-2023 End: 11-26-[address]ona [address] RD Work Phone: Nutrition Therapy Comment on above: Nutrition Assessment Start: 11-26-2023 End: 11-26-2023 Patient encounter procedure Mitch Neri MD Work Phone: [employer] Start: 11-26-2023 End: 11-26-2023 ambulatory Lab/[facility] Ad[facility]fo Francine Work Phone: Hematology/Oncology Comment on above: Chest pain, unspecif ied type; Invasive lobular carcinoma of breast in female (HCC); Generalized edema Invasive lobular car cinoma of breast in female (HCC) (Primary Dx) Start: 11-19-2023 Telephone encounter Merary Resendiz [facility] Comment on above: HomeHealth Start: 11-14-2023 End: 11-14-2023 Transitional care manage srvc 7 day discharge Leo Gerard COOKER TENDER-HOTEL CONCIERGE Work Phone: [facility] Comment on above: Multiple subsegmenta l pulmonary emboli without acute cor pulmonale (CMS-HCC) (Primary Dx); Diuresis; Hospital discharge follow-up; Diastolic dysfunction with acute on chronic heart failure (CMS-HCC); Primary hypertension; Primary invasive malignant neoplasm of female breast, left (CMS-HCC) Start: 11-14-2023 End: 11-14-2023 ambulatory [facility] Start: 11-11-2023 Telephone encounter Yvonne Baumann RN Work Phone: Hematology/Oncology Comment on above: Care Coordination (H ospital d/c follow up call) Care Coordination (M edication update) Start: 11-06-2023 Telephone encounter [facility] Comment on above: Care Coordination (H ospital update) Start: 11-05-2023 End: 11-05-2023 ambulatory BRIANNA RENNER [facility] Start: 11-05-2023 Telephone encounter Yvonne Baumann RN Work Phone: Hematology/Oncology Comment on above: Care Coordination (P E) Multiple subsegmenta l pulmonary emboli without acute cor pulmonale ([facility]-HCC) (Primary Dx) Start: 11-05-2023 End: 11-05-2023 Patient encounter procedure Brianna Renner COOKER TENDER.HOTEL CONCIERGE Work Phone: FRANCINE Start: 11-05-2023 End: 11-05-2023 [...] tic cardiovascular disease) Start: 10-24-2023 End: 10-24-2023 Postop follow up visit related to original px Gabby Cobian MD Work Phone: Plastic Surgery Comment on above: Invasive lobular car cinoma of breast in female (HCC) (Primary Dx); Post-operative state Start: 10-24-2023 End: 10-24-2023 ambulatory SUNNY Saunders GREGORY Facility:[facility] Start: 10-23-2023 End: 10-23-2023 ambulatory Lab/[facility] Ad[facility]fo Butterfield Work Phone: Hematology/Oncology Comment on above: Invasive lobular car cinoma of breast in female (HCC) (Primary Dx) Start: 10-22-2023 End: 10-22-[address] Work Phone: Nutrition Therapy Comment on above: Nutrition Assessment Start: 10-22-2023 Telephone encounter Mitch beebe MD Work Phone: Hematology/Oncology Comment on above: Disability Madi Start: 10-22-2023 End: 10-22-2023 Patient encounter procedure Mitch Neri MD Work Phone: [employer] Start: 10-22-2023 End: 10-22-2023 ambulatory Lab/Port Adolfo Butterfield Work Phone: Hematology/Oncology Comment on above: Invasive [...] linical Information Request) Start: 10-09-2023 End: 10-09-2023 Office outpatient visit 10 minutes Leo Gerard APRN-HOTEL CONCIERGE Work Phone: [facility] Comment on above: Right non-suppurativ e otitis media (Primary Dx); Acute recurrent sinusitis, unspecified location; Acute rhinitis Start: 10-09-2023 End: 10-09-2023 ambulatory [facility] Start: 10-07-2023 Telephone encounter Eliceo Roberts mike Comment on above: Patient Question Start: 09-27-2023 End: 09-27-2023 ambulatory UNKNOWN PROVIDER Facility:[facility] Start: 09-27-2023 Telephone encounter Yvonne Baumann RN Work Phone: Hematology/Oncology Comment on above: Care Coordination (a ppointments) Start: 09-26-2023 End: 09-26-2023 [facility] 1 Work Phone: Pre Anesthesia Comment on above: Preoperative clearan ce (Primary Dx); Mixed hyperlipidemia; Primary hypertension; Palpitations; PETERSON (dyspnea on exertion); Disorder of mitral valve; Morbid obesity (HCC); Edema, unspecified type; Idiopathic scoliosis and kyphoscoliosis; Rheumatoid arthritis, involving unspecified site, unspecified whether rheumatoid factor present ([facility]) Start: 09-26-2023 End: 09-26-2023 Preoperative state [facility] 1 Work Phone: [facility] Work Phone: Start: 09-25-2023 Telephone encounter [facility] Start: 09-24-2023 End: 10-25-2023 ambulatory [facility] Start: 09-20-2023 End: 09-21-2023 ambulatory [facility] Facility:[facility] Start: 09-18-2023 End: 09-18-2023 ambulatory [facility] Start: 09-17-2023 End: 09-17-2023 ambulatory [facility] Facility:[facility] Start: 09-13-2023 End: 09-14-2023 ambulatory [facility] Facility:[facility] Start: 09-13-2023 End: 09-13-2023 ambulatory HEATHER TAPIA Facility:[facility] Start: 09-05-2023 End: 09-05-2023 ambulatory SUNNY JENKINS Facility:[facility] Start: 09-04-2023 End: 09-05-2023 ambulatory RITA AMANDA Facility:[facility] Start: 08-29-2023 End: 08-29-2023 ambulatory GABBY COBIAN Facility:[facility] Start: 08-23-2023 Telephone [facility] Start: 08-06-2023 End: 08-06-2023 ambulatory RITA AMANDA Facility:[facility] Start: 08-06-2023 End: 08-06-2023 Patient encounter procedure Ev Cai APRN.CNP Work Phone: Breast Center Comment on above: Invasive lobular car cinoma of left breast in female (HCC) (Primary Dx); S/P left mastectomy Start: 08-06-2023 End: 08-06-2023 ambulatory Mendoza Yang MD Work Phone: Hematology/Oncology Comment on above: Invasive lobular car cinoma of breast in female (HCC) (Primary Dx) Start: 08-06-2023 End: 08-06-2023 Patient encounter procedure Mendoza Yang MD Work Phone: [facility] Start: 07-30-2023 End: 07-30-2023 ambulatory RITA AMANDA Facility:[facility] Start: 07-29-2023 End: 07-29-2023 Patient encounter status Rita Amanda Work Phone: [facility] Start: 07-29-2023 End: 07-29-2023 Subsequent hospital visit by physician [employer] Work Phone: Molecular Imaging Comment on above: Invasive lobular car cinoma of breast in female (HCC) [C50.919] Start: 07-29-2023 End: 07-30-2023 ambulatory RITA AMANDA Facility:[facility] Start: 07-26-2023 Encounter for other preprocedural examination SUNNY JENKINS [facility] Start: 07-26-2023 End: 07-26-2023 [place] [id number] Work Phone: Pre Anesthesia Comment on above: Preop examination (P rimary Dx); Mixed hyperlipidemia; Primary hypertension; Palpitations; PETERSON (dyspnea on exertion); Gastroesophageal reflux disease, unspecified whether esophagitis present; Disorder of mitral valve; Morbid obesity (HCC); Edema, unspecified type; Idiopathic scoliosis and kyphoscoliosis; Rheumatoid arthritis, involving unspecified site, unspecified whether rheumatoid factor present (HCC) Start: 07-26-2023 End: 07-26-2023 Preprocedural examination done [facility] Work Phone: [facility] Work Phone: Start: 07-24-2023 Telephone encounter Leatha tillman RN Work Phone: Breast Center Comment on above: Automatic Glove Former - O ther (methotrexate) Start: 07-23-2023 End: 07-23-2023 Patient encounter procedure [...] Start: 07-12-2023 Telephone encounter Milton Mcintosh RN Breast Center Start: 02-28-2023 End: 02-28-2023 Admission to same day surgery center DO Janet Dillard Work Phone: [facility] [place] Work Phone: Start: 02-28-2023 End: 02-28-2023 ambulatory DO Janet Dillard Work Phone: [facility] Work Phone: Start: 02-11-2023 ambulatory RITA AMANDA Facility:[facility] Start: 02-08-2023 ambulatory Micah Son DO Work Phone: Orthopaedics Start: 02-08-2023 E-mail encounter jacqui saunders caregiver Micah Son DO Work Phone: [facility] Start: 01-30-2023 Telephone encounter Elida jurado PA-C Work Phone: Pre Anesthesia Comment on above: Reschedule PACC Start: 01-29-2023 End: 01-29-2023 Admission to establishment [facility] Work Phone: [facility] Start: 01-29-2023 End: 01-29-2023 ambulatory P[facility] Work Phone: Pre Anesthesia Comment on above: Canceled (CC cx: Equ ipment, Prep, Appropriateness) Start: 12-10-2022 End: 12-11-2022 Evaluation and management of inpatient DR DONTE CUELLAR . Facility: Start: 12-07-2022 End: 12-07-2022 ambulatory Debbie Ramirez Other [employer] Other Start: 12-07-2022 Office outpatient vi sit 15 minutes Debbie Ramirez [facility] Start: 12-03-2022 End: 12-03-2022 ambulatory Karen Parrish Other [employer] Other Start: 12-03-2022 Office outpatient vi sit 25 minutes Karen Parrish [facility] Start: 10-02-2022 End: 10-02-[address] [facility] Work Phone: Start: 10-02-2022 End: 10-02-2022 Departed Referred PHYSICIAN NO [facility] [place] Work Phone: Start: 09-19-2022 End: 09-19-2022 ambulatory Nell Trujillo COOKER TENDER[employer]EL CONCIERGE Work Phone: Gastroenterology Comment on above: Gastroesophageal ref lux disease, unspecified whether esophagitis present (Primary Dx); Screening for colon cancer; Hiatal hernia Start: 09-19-2022 End: 09-19-2022 Telemedicine consultation with patient Nell Trujillo APRN.HOTEL CONCIERGE Work Phone: [facility] Start: 09-06-2022 End: 09-06-2022 Patient encounter procedure Micah Son DO Work Phone: Orthopaedics Comment on above: 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 (Primary Dx) Start: 08-12-2022 End: 08-12-2022 ambulatory DO Janet G Gilma Work Phone: [facility] Work Phone: Start: 08-12-2022 End: 08-12-2022 Departed Referred DO Janet Gilma Work Phone: [facility] [place] Start: 07-03-2022 ambulatory Facility:U Start: 07-02-2022 ambulatory Facility:[id number] Start: 07-02-2022 End: 07-02-2022 ambulatory DO Janet G Gilma Work Phone: [facility] Work Phone: Start: 07-02-2022 End: 07-02-2022 Patient encounter procedure DO Janet Gilma Work Phone: [facility]Electro[facility] Start: 06-17-2022 End: 06-17-2022 ambulatory Dayanna Schumacher Other [employer] Other Start: 06-17-2022 Office outpatient vi sit 15 minutes Dayanna Schumacher [facility] Start: 05-02-2022 End: 05-02-2022 Patient encounter procedure HENRIK Perez Work Phone: [facility] [place] Start: 04-03-2022 End: 04-03-2022 Orders Only Lopez Salmon DO Work Phone: Neurology Comment on above: Thyroid nodule (Prim parker Dx) BMI 50.0-59.9, adult (HCC) (Primary Dx); Primary osteoarthritis of left hip; Type 2 diabetes mellitus with hyperglycemia, 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 1] Start: 03-26-2022 Telephone encounter Lopez Alyse galileo DO Work Phone: Neurology Comment on above: Orders Start: 03-23-2022 End: 03-23-2022 Orders Only Lopez Salmon DO Work Phone: Neurology Comment on above: Neck pain (Primary D x) 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 (Primary Dx) 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 [M16.12] Start: 03-19-2022 End: 03-19-2022 Patient encounter procedure [...] Telephone encounter Nayan Yan DO Work Phone: [address] [place] [address] Comment on above: Results Start: 12-08-2021 End: 12-08-2021 ambulatory Arrhythmia Monitoring Lab Work Phone: Cardiology Comment on above: Event (Zio patch) Start: 12-08-2021 End: 12-08-2021 Patient encounter procedure John Dc MD Work Phone: Cardiology Comment on above: AF (paroxysmal atria l fibrillation) (HCC) (Primary Dx) Start: 07-07-2021 End: 07-07-2021 ambulatory Debbie Ramirez Other [employer] Other Start: 07-07-2021 Nursing evaluation o f patient and report Debbie Ramirez [facility] Start: 10-02-2018 Patient encounter procedure [facility] Start: 05-19-2018 Patient encounter procedure [facility] Start: 03-31-2018 End: 04-03-2018 Patient encounter procedure [facility] Start: 02-24-2018 Patient encounter procedure [facility] Procedures Date Procedure Procedure Detail Performing Clinician Start: 07-17-2024 Ecg routine ecg w/le ast 12 lds i&r only Heather Castillo MD Work Phone: Start: 07-15-2024 Fine needle aspirati on bx w/us gdn 1st lesion Sandy Mcgregor MD, PhD Work Phone: Start: 07-15-2024 Us soft tissue head & neck real time imge docm Sandy Mcgregor MD, PhD Work Phone: Start: 07-06-2024 Blood count complete auto&auto difrntl wbc Mitch Neri MD Work Phone: Start: 06-10-2024 Adult depression scr eening assessment Sunny Jenkins MD Work Phone: Start: 06-01-2024 Blood count complete auto&auto difrntl wbc Mitch Neri MD Work Phone: Start: 04-21-2024 Blood count complete auto&auto difrntl wbc Mitch Neri MD Work Phone: Start: 03-23-2024 End: 03-23-2024 Computerized ophthalmic imaging retina Johanne Fitzgerald MD Work Phone: Start: 03-03-2024 Blood count complete auto&auto difrntl wbc Mitch Neri MD Work Phone: Start: 01-28-2024 Follow-up visit Follow-up BHARATHMARIA A Saunders GREGORY Start: 01-21-2024 Bilirubin direct Cathy Templeton PA-C Work Phone: Start: 01-14-2024 Blood count complete auto&auto difrntl wbc Mitch Neri MD Work Phone: Start: 01-07-2024 Blood count complete auto&auto difrntl wbc Mitch Neri MD Work Phone: Start: 12-31-2023 Blood count complete auto&auto difrntl wbc Mitch Neri MD Work Phone: Start: 12-24-2023 Blood count complete auto&auto difrntl wbc Brianna Renner COOKER TENDER.HOTEL CONCIERGE Work Phone: Start: 12-10-2023 Blood count complete auto&auto difrntl wbc Cathy Templeton PA-C Work Phone: Start: 12-03-2023 Blood count complete auto&auto difrntl wbc Mitch Neri MD Work Phone: Start: 11-26-2023 Blood count complete auto&auto difrntl wbc Brianna Renner COOKER TENDER.HOTEL CONCIERGE Work Phone: Start: 11-05-2023 CBC + DIFF Mitch beebe MD Work Phone: Start: 11-05-2023 Comprehensive metabo lic panel Mitch Neri MD Work Phone: Start: 10-22-2023 Blood count complete auto&auto difrntl wbc Cathy Templeton PA-C Work Phone: Start: 07-29-2023 Lymphatics & lymph n odes imaging Heather Castillo MD Work Phone: Start: 07-23-2023 Us lmtd joint/oth no nvasc xtr strux r-t w/img Heather Castillo MD Work Phone: Start: 05-14-2023 Adult depression scr eening assessment Kalyani Rachel MANUFACTURING ANALYST Start: 04-24-2023 Lipid 1996 panel - S [place] or Plasma Cymbre Arnaldo RN Start: 02-11-2023 Colonoscopy Cymbre Brennen torres RN Start: 09-06-2022 Arthrocentesis aspir &/inj major jt/bursa w/us Micah D Son DO Work Phone: Start: 08-12-2022 Urine culture PHYSICIAN NO FAMILY Start: 03-29-2022 Us soft tissue head & neck real time imge docm Meño Cadena DO Work Phone: Start: 03-23-2022 Radex hip unilateral with pelvis 2-3 views Nayan Yan DO Work Phone: Start: 02-08-2022 Mammography Lopez gurrola DO Work Phone: Start: 12-19-2021 End: 12-19-2021 Arthrocentesis aspir&/inj major jt/bursa w/us Micah D Son DO Work Phone: Start: 09-12-2020 Mammography Meño rod DO Work Phone: Start: 03-19-2018 Antibody screen DONTE MARCOS Comment on above: Performed By: #### T [id number] #### [place] [address] Start: 07-23-2016 Colonoscopy John torres MD Work Phone: Start: 01-10-2010 Adult depression scr eening assessment John Dc MD Work Phone: Plan of Treatment Date Care Activity Detail Author Start: 04-24-2028 Lipid 1996 panel - Serum or Plasma Lipid Screening [facility] Start: 04-24-2028 Lipid panel Lipid Screening [facility] Start: 02-12-2028 Colonoscopy Colonoscopy [facility] Start: 02-12-2028 Colorectal Cancer Screening Colorectal Cancer Screening [facility] Start: 02-12-2028 Screening for malignant neoplasm of colon [facility] Start: 11-09-2027 LIPID SCREEN LIPID SCREEN [facility] Start: 07-14-2027 Diabetes Screening Diabetes Screening [facility] Start: 07-06-2027 Diabetes Screening Diabetes Screening [facility] Start: 06-01-2027 Diabetes Screening Diabetes Screening [facility] Start: 05-05-2027 Diabetes Screening Diabetes Screening [facility] Start: 04-21-2027 Diabetes Screening Diabetes Screening [facility] Start: 03-03-2027 Diabetes Screening Diabetes Screening [facility] Start: 01-20-2027 Diabetes Screening Diabetes Screening [facility] Start: 01-16-2027 Diabetes Screening Diabetes Screening [facility] Start: 01-13-2027 Diabetes Screening Diabetes Screening [facility] Start: 01-06-2027 Diabetes Screening Diabetes Screening [facility] Start: 12-30-2026 Diabetes Screening Diabetes Screening [facility] Start: 12-23-2026 Diabetes Screening Diabetes Screening [facility] Start: 12-09-2026 Diabetes Screening Diabetes Screening [facility] Start: 12-02-2026 Diabetes Screening Diabetes Screening [facility] Start: 11-25-2026 Diabetes Screening Diabetes Screening [facility] Start: 11-04-2026 Diabetes Screening Diabetes Screening [facility] Start: 10-22-2026 Diabetes Screening Diabetes Screening [facility] Start: 09-20-2026 Diabetes Screening Diabetes Screening [facility] Start: 07-26-2026 Diabetes Screening Diabetes Screening [facility] Start: 04-24-2026 Diabetes Screening Diabetes Screening [facility] Start: 11-08-2025 DIABETES SCREEN DIABETES SCREEN [facility] Start: 07-16-2025 BP Controlled (<130/80) BP Controlled (<130/80) [facility] Start: 07-15-2025 BP Controlled (<130/80) BP Controlled (<130/80) [facility] Start: 07-14-2025 Creatinine measurement Serum Creatinine [facility] Start: 07-06-2025 Complete blood count Hemoglobin/Hematocrit [facility] Start: 07-06-2025 Creatinine measurement Serum Creatinine [facility] Start: 06-10-2025 Adult BMI Screening Adult BMI Screening [facility] Start: 06-10-2025 Depression Screening Depression Screening [facility] Start: 06-10-2025 Fall Risk Screening Fall Risk Screening [facility] Start: 06-10-2025 Medicare Annual Wellness Visit Medicare Annual Wellness Visit [facility] Start: 06-10-2025 Tobacco Screening Tobacco Screening [facility] Start: 06-01-2025 Complete blood count Hemoglobin/Hematocrit [facility] Start: 06-01-2025 Creatinine measurement Serum Creatinine [facility] Start: 05-05-2025 BP Controlled (<130/80) BP Controlled (<130/80) [facility] Start: 05-05-2025 Complete blood count Hemoglobin/Hematocrit [facility] Start: 05-05-2025 Creatinine measurement Serum Creatinine [facility] Start: 05-05-2025 End: 08-04-2025 Thyrotropin [Units/volume] in Serum or Plasma THYROID STIMULATING HORMONE Lab Routine Multiple thyroid nodules Expected: 05/05/2025, Expires: 08/04/2025 [facility] Work Phone: Comment on above: Expected: 05/05/2025, Expires: Start: 04-21-2025 Complete blood count Hemoglobin/Hematocrit [facility] Start: 04-21-2025 Creatinine measurement Serum Creatinine [facility] Start: 04-13-2025 Tobacco Screening Tobacco Screening [facility] Start: 03-16-2025 DIABETES SCREEN DIABETES SCREEN [facility] Start: 03-15-2025 DIABETES SCREEN DIABETES SCREEN [facility] Start: 03-03-2025 Complete blood count Hemoglobin/Hematocrit [facility] Start: 03-03-2025 Creatinine measurement Serum Creatinine [facility] Start: 02-06-2025 BP Controlled (<130/80) BP Controlled (<130/80) [facility] Start: 01-27-2025 Adult BMI Screening Adult BMI Screening [facility] Start: 01-20-2025 Complete blood count Hemoglobin/Hematocrit [facility] Start: 01-20-2025 Creatinine measurement Serum Creatinine [facility] Start: 01-16-2025 Creatinine measurement Serum Creatinine [facility] Start: 01-13-2025 BP Controlled (<130/80) BP Controlled (<130/80) [facility] Start: 01-13-2025 Complete blood count Hemoglobin/Hematocrit [facility] Start: 01-13-2025 Creatinine measurement Serum Creatinine [facility] Start: 01-06-2025 BP Controlled (<130/80) BP Controlled (<130/80) [facility] Start: 01-06-2025 Complete blood count Hemoglobin/Hematocrit [facility] Start: 01-06-2025 Creatinine measurement Serum Creatinine [facility] Start: 12-30-2024 Complete blood count Hemoglobin/Hematocrit [facility] Start: 12-30-2024 Creatinine measurement Serum Creatinine [facility] Start: 12-23-2024 BP Controlled (<130/80) BP Controlled (<130/80) [facility] Start: 12-23-2024 Complete blood count Hemoglobin/Hematocrit [facility] Start: 12-23-2024 Creatinine measurement Serum Creatinine [facility] Start: 11-26-2024 Adult BMI Screening Adult BMI Screening [facility] Start: 11-26-2024 Tobacco Screening Tobacco Screening [facility] Start: 11-25-2024 BP Controlled (<130/80) BP Controlled (<130/80) [facility] Start: 11-16-2024 Tobacco Screening Tobacco Screening [facility] Start: 11-13-2024 Adult BMI Screening Adult BMI Screening [facility] Start: 10-09-2024 Adult BMI Screening Adult BMI Screening [facility] Start: 10-09-2024 Tobacco Screening Tobacco Screening [facility] Start: 09-18-2024 Adult BMI Screening Adult BMI Screening [facility] Start: 09-14-2024 End: 09-14-2024 Patient encounter procedure 09/14/2024 2:00 PM EST Office Visit Radiation Oncology [address] [facility] [place] [address] Josef Austin MD [address] [address] 6 month rv Radiation Oncology Comment on above: 6 month rv Start: 09-10-2024 End: 09-10-2024 Patient encounter procedure 09/10/2024 10:15 AM EST Office Visit [facility] [address] [place] [address] [place] [id number] Sunny Jenkins MD [address] [facility] [place], [place] [id number] [facility] Start: 09-08-2024 End: 09-08-2024 Patient encounter procedure 09/08/2024 8:20 AM EST Appointment Radiology [address] [place] [address] Encounter for screening for osteoporosis [Z13.820] Radiology Comment on above: Encounter for screening for osteoporosis [Z13.820] Start: 08-12-2024 End: 08-12-2024 Patient encounter procedure 08/12/2024 8:40 AM EST Office Visit Endocrinology [address] [place] [address] Sandy Mcgregor MD, PhD [address] [place] [address] Biopsy Endocrinology Comment on above: Biopsy Start: 08-07-2024 Adult BMI Screening Adult BMI Screening [facility] Start: 08-07-2024 Tobacco Screening Tobacco Screening [facility] Start: 08-06-2024 End: 11-05-2024 CBC W Auto Differential panel - Blood COMPLETE BLOOD COUNT AND DIFFERENTIAL Lab Routine Invasive lobular carcinoma of breast in female (HCC) Expected: 08/06/2024 (Approximate), Expires: 11/05/2024 [facility] Comment on above: Expected: 08/06/2024 (Approximate), Expi res: 11/05/2024 Start: 08-06-2024 End: 11-05-2024 Comprehensive metabolic 2000 panel - Serum or Plasma COMPREHENSIVE METABOLIC PANEL Lab Routine Invasive lobular carcinoma of breast in female (HCC) Expected: 08/06/2024 (Approximate), Expires: 11/05/2024 [facility] Comment on above: Expected: 08/06/2024 (Approximate), Expi res: 11/05/2024 Start: 08-06-2024 End: 08-06-2024 Patient encounter procedure 08/06/2024 9:45 AM EST Visit (SP) Office Hematology [address] [place] [address] Mitch Neri MD [address] [place] [address] Schedule Office visit with Dr Culver in 3 weeks Hematology Comment on above: Schedule Office visit with Dr Culver in 3 wee ks Start: 07-21-2024 End: 07-21-2024 Patient encounter procedure 07/21/2024 10:00 AM EST Office Visit [facility] Ophthalmology [address] [place] [address] Rakesh Palma, OD [address] [address] 1 MONTH Ophthalmology Comment on above: 1 MONTH Start: 07-17-2024 End: 07-17-2024 Nursing evaluation of patient and report 07/17/2024 9:15 AM EST Nurse Visit Hematology/Oncology [address] [place] [address] Irma Solano Nurse Adolfo [address] [place] [address] EKG wallace per staff message-[facility] patient Hematology/Oncology Comment on above: EKG wallace per staff message-[facility] patient Start: 07-16-2024 End: 07-16-2024 Patient encounter procedure 07/16/2024 1:45 PM EST Visit (SP) Office Hematology [address] [place] [address] Mitch Neri MD [address] [place] [address] MD exam and labs prior to the visit in 6 weeks Hematology Comment on above: MD exam and labs prior to the visit in 6 weeks Start: 07-16-2024 End: 07-16-2024 Patient encounter procedure Hematology Comment on above: MD exam and labs prior to the visit in 6 weeks BREAST CA Start: 07-15-2024 End: 10-14-2024 CBC W Auto Differential panel - Blood COMPLETE BLOOD COUNT AND DIFFERENTIAL Lab Routine Invasive lobular carcinoma of breast in female (HCC) Expected: 07/15/2024 (Approximate), Expires: 10/14/2024 [facility] Comment on above: Expected: 07/15/2024 (Approximate), Expi res: 10/14/2024 Start: 07-15-2024 End: 10-14-2024 Comprehensive metabolic 2000 panel - Serum or Plasma COMPREHENSIVE METABOLIC PANEL Lab Routine Invasive lobular carcinoma of breast in female (HCC) Expected: 07/15/2024 (Approximate), Expires: 10/14/2024 [facility] Comment on above: Expected: 07/15/2024 (Approximate), Expi res: 10/14/2024 Start: 07-15-2024 End: 07-15-2024 Patient encounter procedure 07/15/2024 2:00 PM EST Office Visit Endocrinology [address] [place] [address] Sandy Mcgregor MD, PhD [address] [place] [address] ok per 06/23 [facility] Comment on above: ok per 06/23 encounter [facility] Start: 07-14-2024 End: 07-14-2024 Patient encounter procedure 07/14/2024 3:30 PM EST Office Visit [facility] Ophthalmology [address] [place] [address] Rakesh Palma, OD [address] [place] [address] 1 MONTH Ophthalmology Comment on above: 1 MONTH Start: 07-09-2024 End: 07-09-2024 Telemedicine consultation with patient 07/09/2024 7:45 AM EST Telemedicine [facility] [address] [facility] [place] [address] Sunny Jenkins MD [address] [facility] [place], [place] [phone] [facility] Start: 06-23-2024 End: 06-23-2024 Patient encounter procedure 06/23/2024 10:30 AM EDT Office Visit [facility] Ophthalmology [address] [place] [address] Rakesh Palma, OD [address] [facility] [place] [address] 1 WEEK Ophthalmology Comment on above: 1 WEEK Start: 06-18-2024 End: 06-18-2024 Patient encounter procedure Ophthalmolog y Comment on above: 1 DAY Multiple thyroid nod ules [E04.2] Checked Start: 06-17-2024 End: 06-17-2024 Admission to same day surgery center Ambulatory Surgery Comment on above: PHACOEMULSIFICATION CATARACT IMPLANT INT RAOCULAR LENS W/O ENDOSCOPIC CYCLOPHOTOCOAGULATION Start: 06-17-2024 End: 06-17-2024 Oph bmtry prtl coher intrfrmtry io lens pwr louise [facility] Start: 06-17-2024 Subsequent hospital visit by physician Ambulatory Surgery Comment on above: 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 Comment on above: Expected: 06/10/2024 (Approximate), Expi res: 09/09/2024 Start: 06-10-2024 End: 09-09-2024 CYSTATIN C CYSTATIN C Lab Routine Invasive lobular carcinoma of breast in female (HCC) Expected: 06/10/2024 (Approximate), Expires: 09/09/2024 [facility] Work Phone: Comment on above: Expected: 06/10/2024 (Approximate), Expi res: 09/09/2024 Start: 06-10-2024 End: 06-10-2024 Patient encounter procedure 06/10/2024 9:30 AM EDT Office Visit [facility] [address] [place] [address] [place] [phone] Sunny Jenkins MD [address] [facility] [place], [place] [phone] [facility] Start: 06-09-2024 End: 06-09-2024 Patient encounter procedure 06/09/2024 10:30 AM EDT Office Visit [facility] Ophthalmology [address] [place] [address] Rakesh Palma, OD [address] [facility] [address] 1 WEEK Ophthalmology Comment on above: 1 WEEK Start: 06-03-2024 End: 06-03-2024 Patient encounter procedure 06/03/2024 1:30 PM EDT Visit (SP) Office Hematology [address] [place] [address] Mitch Neri MD [address] [place] [address] BREAST CA Hematology Comment on above: BREAST CA Start: 06-03-2024 End: 06-03-2024 Patient encounter procedure Ophthalmolog y Comment on above: 1 DAY 1 DAY POST OP Catara ct: Left eye (OS) then Right eye (OD) Start: 06-02-2024 End: 06-02-2024 Admission to same day surgery center Ambulatory Surgery Comment on above: PHACOEMULSIFICATION CATARACT IMPLANT INT RAOCULAR LENS W/O ENDOSCOPIC CYCLOPHOTOCOAGULATION Start: 06-02-2024 End: 06-02-2024 Oph bmtry prtl coher intrfrmtry io lens pwr louise [facility] Start: 06-02-2024 Subsequent hospital visit by physician Ambulatory Surgery Comment on above: 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 Neri in 4 weeks Hematology Comment on above: Follow up with Dr. Neri in 4 weeks Start: 05-19-2024 End: 05-19-2024 Patient encounter procedure [facility] Comment on above: thyroid nodule, 4mm Cataract: Left eye ( OS) then Right eye (OD) Start: 05-19-2024 End: 05-19-2024 Anesthesia consultation 05/19/2024 2:20 PM EDT PAT Pre Anesthesia [address] [place] [address] 1, Pacc [place] [address] [place] [address] Cataract: Left eye (OS) then Right eye (OD) Pre Anesthesia Comment on above: Cataract: Left eye (OS) then Right eye ( OD) Start: 05-19-2024 End: 08-18-2024 CBC W Auto Differential panel - Blood COMPLETE BLOOD COUNT AND DIFFERENTIAL Lab Routine Invasive lobular carcinoma of breast in female (HCC) Expected: 05/19/2024 (Approximate), Expires: 08/18/2024 [facility] Work Phone: Comment on above: Expected: 05/19/2024 (Approximate), Expi res: 08/18/2024 Start: 05-19-2024 End: 08-18-2024 Comprehensive metabolic 2000 panel - Serum or Plasma COMPREHENSIVE METABOLIC PANEL Lab Routine Invasive lobular carcinoma of breast in female (HCC) Expected: 05/19/2024 (Approximate), Expires: 08/18/2024 [facility] Comment on above: Expected: 05/19/2024 (Approximate), Expi res: 08/18/2024 Start: 05-15-2024 End: 05-15-2024 Patient encounter procedure 05/15/2024 12:00 PM EDT Education Hematology [address] [facility] [place] [address] Schedule chemo teach with Nia for Verzenio Hematology Comment on above: Schedule chemo teach with Nia for Verz bashir Start: 05-14-2024 Depression Screening Depression Screening [facility] Start: 05-14-2024 Fall Risk Screening Fall Risk Screening [facility] Start: 05-14-2024 Medicare Annual Wellness Visit Medicare Annual Wellness Visit [facility] Start: 05-05-2024 End: 05-05-2024 Patient encounter procedure 05/05/2024 3:00 PM EDT Office Visit Endocrinology [address] [place] [address] Sandy Mcgregor MD, PhD [address] [place] [address] thyroid nodule, 4mm Endocrinology Comment on above: thyroid nodule, 4mm Start: 04-30-2024 Screening for malignant neoplasm of breast Mammogram Screening [facility] Start: 04-26-2024 Covid-19 Vaccine ( season) Covid-19 Vaccine ( season) [facility] Start: 04-26-2024 Covid-19 Vaccine ( season) Covid-19 Vaccine ( season) [facility] Start: 04-26-2024 Influenza vaccination [facility] Start: 04-21-2024 End: 07-21-2024 25-hydroxyvitamin D3 [Mass/volume] in Serum or Plasma VITAMIN D 25 HYDROXY Lab Routine Invasive lobular carcinoma of breast in female (HCC) Body mass index (BMI) 50.0-59.9, adult (HCC) Expected: 04/21/2024 (Approximate), Expires: 07/21/2024 [facility] Comment on above: Expected: 04/21/2024 (Approximate), Expi res: 07/21/2024 Start: 04-21-2024 End: 07-21-2024 CBC W Auto Differential panel - Blood COMPLETE BLOOD COUNT AND DIFFERENTIAL Lab Routine Invasive lobular carcinoma of breast in female (HCC) Expected: 04/21/2024 (Approximate), Expires: 07/21/2024 [facility] Work Phone: Comment on above: Expected: 04/21/2024 (Approximate), Expi res: 07/21/2024 Start: 04-21-2024 End: 07-21-2024 Comprehensive metabolic 2000 panel - Serum or Plasma COMPREHENSIVE METABOLIC PANEL Lab Routine Invasive lobular carcinoma of breast in female (HCC) Expected: 04/21/2024 (Approximate), Expires: 07/21/2024 [facility] Comment on above: Expected: 04/21/2024 (Approximate), Expi res: 07/21/2024 Start: 04-21-2024 End: 04-21-2024 Patient encounter procedure 04/21/2024 10:00 AM EDT Infusion Center Hematology [address] [place] [address] [facility] Comment on above: [facility] Start: 04-21-2024 End: 04-21-2024 Follow-up encounter 04/21/2024 9:45 AM EDT Visit (SP) Office Hematology [address] [place] [address] Mitch Neri MD [address] [place] [address] 7 week follow up Hematology Comment on above: 7 week follow up Start: 03-24-2024 End: 03-24-2024 Patient encounter procedure Radiation On cology Comment on above: RPM Lt CW [facility] [facility] Start: 03-23-2024 End: 03-23-2024 Patient encounter procedure 03/23/2024 8:45 AM EDT Appointment Radiation Oncology [address] [place] [address] RPM Lt CW Radiation Oncology Comment on above: RPM Lt CW Start: 03-20-2024 End: 03-20-2024 Patient encounter procedure 03/20/2024 8:45 AM EDT Appointment Radiation Oncology [address] [place] [address] RPM Lt CW Radiation Oncology Comment on above: RPM Lt CW Start: 03-19-2024 End: 03-19-2024 Patient encounter procedure 03/19/2024 8:45 AM EDT Appointment Radiation Oncology [address] [place] [address] RPM Lt CW Radiation Oncology Comment on above: RPM Lt CW Start: 03-18-2024 End: 03-18-2024 Patient encounter procedure Radiation On cology Comment on above: RPM Lt CW Location: [facility] Start: 03-17-2024 End: 03-17-2024 Patient encounter procedure 03/17/2024 8:45 AM EDT Appointment Radiation Oncology [address] [place] [address] RPM Lt CW Radiation Oncology Comment on above: RPM Lt CW Start: 03-16-2024 End: 03-16-2024 Patient encounter procedure 03/16/2024 8:45 AM EDT Appointment Radiation Oncology [address] [place] [address] RPM Lt CW Radiation Oncology Comment on above: RPM Lt CW Start: 03-13-2024 End: 03-13-2024 Patient encounter procedure 03/13/2024 8:45 AM EDT Appointment Radiation Oncology [address] [place] [address] RPM Lt CW Radiation Oncology Comment on above: RPM Lt CW Start: 03-12-2024 End: 03-12-2024 Patient encounter procedure 03/12/2024 8:45 AM EDT Appointment Radiation Oncology [address] [place] [address] RPM Lt CW Radiation Oncology Comment on above: RPM Lt CW Start: 03-11-2024 End: 03-11-2024 Patient encounter procedure Radiation On cology Comment on above: RPM Lt CW Location: [facility] Start: 03-10-2024 End: 03-10-2024 Patient encounter procedure 03/10/2024 8:45 AM EDT Appointment Radiation Oncology [address] [place] [address] RPM Lt CW Radiation Oncology Comment on above: RPM Lt CW Start: 03-09-2024 End: 03-09-2024 Patient encounter procedure 03/09/2024 8:45 AM EDT Appointment Radiation Oncology [address] [place] [place] [address] RPM Lt CW Radiation Oncology Comment on above: RPM Lt CW Start: 03-06-2024 End: 03-06-2024 Patient encounter procedure 03/06/2024 8:45 AM EDT Appointment Radiation Oncology [address] [place] [place] [address] RPM Lt CW Radiation Oncology Comment on above: RPM Lt CW Start: 03-05-2024 End: 03-05-2024 Patient encounter procedure 03/05/2024 8:45 AM EDT Appointment Radiation Oncology [address] [place] [place] [address] RPM Lt CW Radiation Oncology Comment on above: RPM Lt CW Start: 03-04-2024 End: 03-04-2024 Patient encounter procedure 03/04/2024 8:45 AM EDT Appointment Radiation Oncology [address] [place] [place] [address] RPM Lt CW Radiation Oncology Comment on above: RPM Lt CW Start: 03-03-2024 End: 03-03-2024 Follow-up encounter Hematology/Oncology Comment on above: 6 week follow up labs Start: 03-03-2024 End: 03-03-2024 Patient encounter procedure Radiation On cology Comment on above: NEW START RPM LT BREAST IMRT RPM LT BREAST - would like am Start: 03-03-2024 End: 06-02-2024 CBC W Auto Differential panel - Blood COMPLETE BLOOD COUNT AND DIFFERENTIAL Lab Routine Invasive lobular carcinoma of breast in female (HCC) Expected: 03/03/2024 (Approximate), Expires: 06/02/2024 [facility] Work Phone: Comment on above: Expected: 03/03/2024 (Approximate), Expi res: 06/02/2024 Start: 03-03-2024 End: 06-02-2024 Comprehensive metabolic 2000 panel - Serum or Plasma [facility] Comment on above: Expected: 03/03/2024 (Approximate), Expi res: 06/02/2024 Start: 02-20-2024 End: 02-20-2024 Patient encounter procedure Radiation On cology Comment on above: NEW START LEFT BREAST RPM NEW START LEFT RPM B REAST-wants mornings Start: 02-07-2024 End: 02-07-2024 Patient encounter procedure 02/07/2024 10:00 AM EDT Office Visit Radiation Oncology [address] [place] [place] [address] Josef Austin MD [address] [place] [place] [address] Dr francesco lott breast cancer Radiation Oncology Comment on above: Dr francesco lott breast cancer Start: 01-28-2024 End: 01-28-2024 Patient encounter procedure 01/28/2024 8:15 AM EDT Office Visit [facility] [address] [place] [address] [place] [address] Sunny Jenkins MD [address], [place] [address] [facility] Start: 01-21-2024 End: 01-21-2024 Follow-up encounter Hematology/Oncology Comment on above: 1 WEEK FOLLOW UP CHEMOTX TAXOL Start: 01-14-2024 End: 04-14-2024 CBC W Auto Differential panel - Blood [facility] Work Phone: Comment on above: Expected: 01/14/2024 (Approximate), Expi res: 04/14/2024 Expected: 01/14/2024 , Expires: 04/14/2024 Start: 01-14-2024 End: 04-14-2024 Comprehensive metabolic 2000 panel - Serum or Plasma COMPREHENSIVE METABOLIC PANEL Lab Routine Mass of right breast, unspecified quadrant Invasive lobular carcinoma of breast in female (HCC) Other abnormal and inconclusive findings on diagnostic imaging of breast Expected: 01/14/2024, Expires: 04/14/2024 [facility] Comment on above: Expected: 01/14/2024, Expires: Start: 01-14-2024 End: 01-14-2024 Follow-up encounter Hematology/Oncology Comment on above: 1 WEEK FOLLOW UP CHEMOTX TAXOL Start: 01-07-2024 End: 01-07-2024 Follow-up encounter Hematology/Oncology Comment on above: 2 WEEK FOLLOW UP CHEMOTX TAXOL Start: 12-31-2023 End: 12-31-2023 Follow-up encounter 12/31/2023 11:30 AM EDT Infusion Center Hematology/Oncology [address] [place] [address] [place] [address] 2 WEEK FOLLOW UP CHEMOTX TAXOL Hematology/Oncology Comment on above: 2 WEEK FOLLOW UP CHEMOTX TAXOL Start: 12-12-2023 End: 03-12-2024 CBC W Auto Differential panel - Blood COMPLETE BLOOD COUNT AND DIFFERENTIAL Lab Routine Invasive lobular carcinoma of breast in female (HCC) Jessica infection Expected: 12/12/2023, Expires: 03/12/2024 [facility] Work Phone: Comment on above: Expected: 12/12/2023, Expires: Start: 12-12-2023 End: 03-12-2024 Comprehensive metabolic 2000 panel - Serum or Plasma COMPREHENSIVE METABOLIC PANEL Lab Routine Invasive lobular carcinoma of breast in female (HCC) Jessica infection Expected: 12/12/2023, Expires: 03/12/2024 [facility] Work Phone: Comment on above: Expected: 12/12/2023, Expires: Start: 12-10-2023 End: 03-10-2024 CBC W Auto Differential panel - Blood CBC + DIFF Lab Routine Invasive lobular carcinoma of breast in female (HCC) Expected: 12/10/2023, Expires: 03/10/2024 [facility] Work Phone: Comment on above: Expected: 12/10/2023, Expires: 4 Start: 12-10-2023 End: 03-10-2024 Comprehensive metabolic 2000 panel - Serum or Plasma COMP METABOLIC PANEL Lab Routine Invasive lobular carcinoma of breast in female (HCC) Expected: 12/10/2023, Expires: 03/10/2024 [facility] Work Phone: Comment on above: Expected: 12/10/2023, Expires: 4 Start: 12-03-2023 End: 03-03-2024 CBC W Auto Differential panel - Blood CBC + DIFF Lab Routine Invasive lobular carcinoma of breast in female (HCC) Expected: 12/03/2023 (Approximate), Expires: 03/03/2024 [facility] Work Phone: Comment on above: Expected: 12/03/2023 (Approximate), Expi res: 03/03/2024 Start: 12-03-2023 End: 03-03-2024 Comprehensive metabolic 2000 panel - Serum or Plasma COMP METABOLIC PANEL Lab Routine Invasive lobular carcinoma of breast in female (HCC) Expected: 12/03/2023 (Approximate), Expires: 03/03/2024 [facility] Work Phone: Comment on above: Expected: 12/03/2023 (Approximate), Expi res: 03/03/2024 Start: 11-28-2023 End: 11-13-2024 Basic metabolic 2000 panel - Serum or Plasma Basic Metabolic Panel Lab Routine Diuresis Expected: 11/28/2023 (Approximate), Expires: 11/13/2024 [facility] Work Phone: Comment on above: Expected: 11/28/2023 (Approximate), Expi res: 11/13/2024 Start: 11-14-2023 End: 11-14-2023 Patient encounter procedure 11/14/2023 3:00 PM EDT Office Visit [facility] [address] [place] [phone] Leo Gerard APRN-HOTEL CONCIERGE [address] [place] [address], [place] [address] [facility] Start: 11-11-2023 End: 02-10-2024 CBC W Auto Differential panel - Blood CBC + DIFF Lab Routine Chest pain, unspecified type Invasive lobular carcinoma of breast in female (HCC) Generalized edema Expected: 11/11/2023, Expires: 02/10/2024 [facility] Work Phone: Comment on above: Expected: 11/11/2023, Expires: Start: 11-11-2023 End: 02-10-2024 Comprehensive metabolic 2000 panel - Serum or Plasma COMP METABOLIC PANEL Lab Routine Chest pain, unspecified type Invasive lobular carcinoma of breast in female (HCC) Generalized edema Expected: 11/11/2023, Expires: 02/10/2024 [facility] Work Phone: Comment on above: Expected: 11/11/2023, Expires: Start: 11-05-2023 End: 02-04-2024 CBC W Auto Differential panel - Blood [facility] Work Phone: Comment on above: Expected: 11/05/2023 (Approximate), Expi res: 02/04/2024 Start: 11-05-2023 End: 02-04-2024 Comprehensive metabolic 2000 panel - Serum or Plasma COMP METABOLIC PANEL Lab Routine Invasive lobular carcinoma of breast in female (HCC) Expected: 11/05/2023 (Approximate), Expires: 02/04/2024 [facility] Work Phone: Comment on above: Expected: 11/05/2023 (Approximate), Expi res: 02/04/2024 Start: 10-08-2023 End: 10-08-2023 Patient encounter procedure 10/08/2023 9:00 AM EST Appointment [facility] [address] [place] [address] Arrived [facility] Comment on above: Arrived Start: 08-26-2023 Advance Directive Discussion Advance Directive Discussion [facility] Start: 08-26-2023 Behavioral Health Screening Behavioral Health Screening [facility] Start: 08-26-2023 Depression Assessment Depression Assessment [facility] Start: 04-26-2023 Covid-19 Vaccine () Covid-19 Vaccine () [facility] Start: 04-26-2023 Influenza vaccination [facility] Start: 02-28-2023 [facility] Start: 02-28-2023 [facility] Start: 02-08-2023 Mammography [facility] Start: 02-08-2023 Screening for malignant neoplasm of breast Mammogram Screening [facility] Start: 02-03-2023 COVID-19 VACCINE (4 - Booster for Romina series) COVID-19 VACCINE (4 - Booster for Romina series) [facility] Start: 08-26-2022 ADVANCE DIRECTIVE DISCUSSION ADVANCE DIRECTIVE DISCUSSION [facility] Start: 08-26-2022 DEPRESSION ASSESSMENT DEPRESSION ASSESSMENT [facility] Start: 04-26-2022 Influenza vaccination [facility] Start: 11-16-2021 COVID-19 VACCINE (3 - Booster for Romina series) COVID-19 VACCINE (3 - Booster for Romina series) [facility] Start: 09-13-2021 COVID-19 VACCINE (3 - Booster for Romina series) COVID-19 VACCINE (3 - Booster for Romina series) [facility] Start: 09-12-2021 Mammography MAMMOGRAM [facility] Start: 08-26-2021 ADVANCE DIRECTIVE DISCUSSION ADVANCE DIRECTIVE DISCUSSION [facility] Start: 07-23-2021 Colonoscopy COLONOSCOPY [facility] Start: 07-23-2021 COLORECTAL CANCER SCREENING COLORECTAL CANCER SCREENING [facility] Start: 04-02-2021 DIABETES SCREEN DIABETES SCREEN [facility] Start: 11-04-2019 BONE DENSITY BONE DENSITY [facility] Start: 11-04-2019 Bone Density Screening Bone Density Screening [facility] Start: 11-04-2019 PNEUMOVAX AGE 65 AND OVER WITH 5YR LOOKBACK (#1) PNEUMOVAX AGE 65 AND OVER WITH 5YR LOOKBACK (#1) [facility] Start: 11-04-2019 Screening for osteoporosis Bone Density Screening [facility] Start: 2014 RSV Vaccine (1 - 1-dose 60+ series) RSV Vaccine (1 - 1-dose 60+ series) [facility] Start: 2014 RSV Vaccine (1 - Risk 60-74 years 1-dose series) RSV Vaccine (1 - Risk 60-74 years 1-dose series) [facility] Start: 01-10-2011 Adult depression screening assessment DEPRESSION SCREENING [facility] Start: 2004 SHINGRIX VACCINE (1 of 2) SHINGRIX VACCINE (1 of 2) [facility] Start: 11-04-1999 COLOGUARD (FIT-DNA) COLOGUARD (FIT-DNA) [facility] Start: 11-04-[address] COLONOGRAPHY [facility] Start: 11-04-1999 FECAL OCCULT BLOOD FECAL OCCULT BLOOD [facility] Start: 11-04-1999 LIPID SCREEN LIPID SCREEN [facility] Start: 11-04-1999 Screening for malignant neoplasm of colon [facility] Start: 11-04-1999 SIGMOIDOSCOPY SIGMOIDOSCOPY [facility] Start: 1994 Mammography MAMMOGRAM [facility] Start: 1994 Screening for malignant neoplasm of breast Mammogram Screening [facility] Start: 1984 Zoledronic acid therapy ALPHA-1 ANTITRYPSIN DEFICIENCY SCREENING [facility] Start: 1973 DTaP,Tdap and Td Vaccines (1 - Tdap) DTaP,Tdap and Td Vaccines (1 - Tdap) [facility] Start: 1973 [facility]rine microalbumin profile [facility] Start: 1972 Adult BMI Follow Up Plan Adult BMI Follow Up Plan [facility] Start: 1972 ANNUAL PCP TEAM CHRONIC DISEASE VISIT ANNUAL PCP TEAM CHRONIC DISEASE VISIT [facility] Start: 1972 Anxiety Screening Anxiety Screening [facility] Start: 1972 BP CONTROLLED (<130/80) BP CONTROLLED (<130/80) [facility] Start: 1972 Depression Screening Depression Screening [facility] Start: 1972 HEPATITIS C SCREENING HEPATITIS C SCREENING [facility] Start: 1972 Hepatitis C screening Hepatitis C Screening [facility] Start: 1972 SPIROMETRY SPIROMETRY [facility] Start: 1965 Screening for malignant neoplasm of cervix Cervical Cancer Screening [facility] Start: 1960 PNEUMOCOCCAL: 65+ (1 - PCV) PNEUMOCOCCAL: 65+ (1 - PCV) [facility] Bacteria identified in Urine by Culture Urine Culture [facility] Basic metabolic 2000 panel - Serum or Plasma BASIC METABOLIC PANEL Lab Routine Invasive lobular carcinoma of breast in female (HCC) 07/14/2024 3:52 PM EST [facility] Work Phone: End: 04-02-2025 BD DXA TRABECULAR BONE SCORE (TBS) BD DXA TRABECULAR BONE SCORE (TBS) Radiology Routine Encounter for screening for osteoporosis Asymptomatic postmenopausal status 1 Occurrences starting 03/03/2024 until 04/02/2025 [facility] Comment on above: 1 Occurrences starting 03/03/2024 until 04/02/2025 End: 12-23-2024 CBC W Auto Differential panel - Blood COMPLETE BLOOD COUNT AND DIFFERENTIAL Lab Routine Invasive lobular carcinoma of breast in female (HCC) Once per week for 2 Occurrences starting 12/24/2023 until 12/23/2024 [facility] Work Phone: Comment on above: Once per week for 2 Occurrences starting 12/24/2023 until 12/23/2024 CBC W Auto Different ial panel - Blood COMPLETE BLOOD COUNT AND DIFFERENTIAL Lab Routine Invasive lobular carcinoma of breast in female (HCC) 05/05/2024 3:22 PM EDT [facility] Work Phone: Chronic hepatitis differentiation between hepatitis B and C virus panel - Serum or Plasma HEP REMOTE PANEL BL Lab Routine Invasive lobular carcinoma of breast in female (HCC) Elevated transaminase level 01/21/2024 1:46 PM EDT [facility] End: 12-23-2024 Comprehensive metabolic 2000 panel - Serum or Plasma COMPREHENSIVE METABOLIC PANEL Lab Routine Invasive lobular carcinoma of breast in female (HCC) Once per week for 2 Occurrences starting 12/24/2023 until 12/23/2024 [facility] Comment on above: Once per week for 2 Occurrences starting 12/24/2023 until 12/23/2024 Comprehensive metabo lic 2000 panel - Serum or Plasma COMPREHENSIVE METABOLIC PANEL Lab Routine Invasive lobular carcinoma of breast in female (HCC) 05/05/2024 3:22 PM EDT [facility] End: 12-04-2024 CTA Pulmonary arteries for pulmonary embolus W contrast IV CT CHEST W IVCON PE Radiology STAT Chest pain, unspecified type 1 Occurrences starting 11/05/2023 until 12/04/2024 [facility] Work Phone: Comment on above: 1 Occurrences starting 11/05/2023 until 12/04/2024 CYTOLOGY NON-BUNCH BREAKER CYTOLOGY NON-GY N Lab Routine Multiple thyroid nodules 07/15/2024 2:32 PM EST [facility] Work Phone: End: 04-02-2025 DXA Skeletal system.axial Views for bone density and vertebral fracture DXA-AXIAL SKELETON WITH VFA Radiology Routine Encounter for screening for osteoporosis Asymptomatic postmenopausal status 1 Occurrences starting 03/03/2024 until 04/02/2025 [facility] Comment on above: 1 Occurrences starting 03/03/2024 until 04/02/2025 End: 07-16-2025 ECG COMPLETE ECG COMPLETE ECG Routine Invasive lobular carcinoma of breast in female (HCC) 1 Occurrences starting 07/16/2024 until 07/16/2025 [facility] Work Phone: Comment on above: 1 Occurrences starting 07/16/2024 until 07/16/2025 ECG COMPLETE ECG COMPLETE ECG Routine Pre-op testing 07/17/2024 9:25 AM EST [facility] Work Phone: End: 12-08-2022 Echocardiography ECHO Cardiology Routine AF (paroxysmal atrial fibrillation) (HCC) 1 Occurrences starting 12/08/2021 until 12/08/2022 [facility] Work Phone: Comment on above: 1 Occurrences starting 12/08/2021 until 12/08/2022 End: 09-19-2023 EGD DIAGNOSTIC EGD DIAGNOSTIC Endoscopy Routine Gastroesophageal reflux disease, unspecified whether esophagitis present Hiatal hernia 1 Occurrences starting 09/19/2022 until 09/19/2023 [facility] Work Phone: Comment on above: 1 Occurrences starting 09/19/2022 until 09/19/2023 Ferritin [Mass/volum e] in Serum or Plasma FERRITIN Lab Routine Invasive lobular carcinoma of breast in female (HCC) Elevated transaminase level 01/21/2024 1:46 PM EDT [facility] Hepatitis B virus co re Ab [Presence] in Serum HEPATITIS B CORE ANTIBODY TOTAL Lab Routine Invasive lobular carcinoma of breast in female (HCC) Elevated transaminase level 01/21/2024 1:46 PM EDT [facility] Hepatitis B virus guido rface Ab [Presence] in Serum HEPATITIS B SURFACE ANTIBODY Lab Routine Invasive lobular carcinoma of breast in female (HCC) Elevated transaminase level 01/21/2024 1:46 PM EDT [facility] Hepatitis B virus guido rface Ag [Presence] in Serum HEPATITIS B SURFACE ANTIGEN Lab Routine Invasive lobular carcinoma of breast in female (HCC) Elevated transaminase level 01/21/2024 1:46 PM EDT [facility] Hepatitis C virus Ab [Presence] in Serum HEPATITIS C ANTIBODY IA WITH CONFIRMATION Lab Routine Invasive lobular carcinoma of breast in female (HCC) Elevated transaminase level 01/21/2024 1:46 PM EDT [facility] IOL BIOMETRY W/ IOL CALC OU (BOTH EYES) IOL BIOMETRY W/ IOL CALC OU (BOTH EYES) OPHT Imaging Routine Combined forms of age-related cataract of both eyes 05/19/2024 2:38 PM EDT [facility] Work Phone: Iron and Iron bindin g capacity panel - Serum or Plasma IRON AND TIBC Lab Routine Invasive lobular carcinoma of breast in female (HCC) Elevated transaminase level 01/21/2024 1:46 PM EDT [facility] Work Phone: End: 02-12-2025 MG Breast - right Diagnostic for implant TINO DIAGNOSTIC RIGHT Radiology Routine Mass of right breast, unspecified quadrant Invasive lobular carcinoma of breast in female (HCC) Other abnormal and inconclusive findings on diagnostic imaging of breast 1 Occurrences starting 01/14/2024 until 02/12/2025 [facility] Work Phone: Comment on above: 1 Occurrences starting 01/14/2024 until 02/12/2025 OUTSIDE VENDOR CARDI AC OUTPATIENT EXTENDED RHYTHM RECORDING (WITHOUT TELEMETRY) OUTSIDE VENDOR CARDIAC OUTPATIENT EXTENDED RHYTHM RECORDING (WITHOUT TELEMETRY) Holter Routine AF (paroxysmal atrial fibrillation) (HCC) Ordered: 12/08/2021 [facility] Work Phone: Comment on above: Ordered: 12/08/2021 Patient Education [facility] Need le Biopsy, Thyroid [facility] Work Phone: End: 09-19-2023 Screening colonoscopy COLONOSCOPY SCREENING Endoscopy Routine Screening for colon cancer 1 Occurrences starting 09/19/2022 until 09/19/2023 [facility] Work Phone: Comment on above: 1 Occurrences starting 09/19/2022 until 09/19/2023 Thyrotropin [Units/v olume] in Serum or Plasma THYROID STIMULATING HORMONE Lab Routine Multiple thyroid nodules 06/01/2024 1:56 PM EDT [facility] Work Phone: End: 08-15-2024 US AXILLA ONLY LEFT US AXILLA ONLY LEFT Radiology Routine Malignant neoplasm of left female breast, unspecified estrogen receptor status, unspecified site of breast (HCC) 1 Occurrences starting 07/17/2023 until 08/15/2024 [facility] Work Phone: Comment on above: 1 Occurrences starting 07/17/2023 until 08/15/2024 End: 02-12-2025 US Breast - right limited US BREAST LTD RIGHT Radiology Routine Mass of right breast, unspecified quadrant Invasive lobular carcinoma of breast in female (HCC) Other abnormal and inconclusive findings on diagnostic imaging of breast 1 Occurrences starting 01/14/2024 until 02/12/2025 [facility] Comment on above: 1 Occurrences starting 01/14/2024 until 02/12/2025 US HIP-INJECTION LT (POC) KELLY USE ONLY US HIP-INJECTION LT (POC) KELLY USE ONLY Imaging Procedures Routine Primary osteoarthritis of left hip Ordered: 09/06/2022 [facility] Work Phone: Comment on above: Ordered: 09/06/2022 Us soft tissue head & neck real time imge docm US THYROID/PARATHYROID Radiology Routine Thyroid nodule 03/29/2022 4:34 PM EDT [facility] Work Phone: End: 06-04-2025 US Thyroid gland US THYROID/PARATHYROID Radiology Routine Multiple thyroid nodules 1 Occurrences starting 05/05/2024 until 06/04/2025 [facility] Comment on above: 1 Occurrences starting 05/05/2024 until 06/04/2025 US Thyroid gland US THYROID/PARA THYROID Radiology Routine Multiple thyroid nodules 06/18/2024 11:24 AM EDT [facility] Work Phone: [facility] Immunizations Immunization Date Immunization Notes Care Provider Lucian bonds 12-09-2022 COVID-19, mRNA, LNP- S, PF, 100mcg/0.5mL Dose Kalyani Rachel [facility] 04-28-2022 zoster vaccine recombinant Kalyani Rachel [facility] 12-31-2021 pneumococcal polysaccharide vaccine, 23 valent Kalyani Rachel [facility] 02-14-2021 pneumococcal conjuga te vaccine, 13 valent Kalyani Rachel [facility] 02-14-2021 zoster vaccine recombinant Kalyani Rachel [facility] 08-04-2016 pneumococcal conjuga te vaccine, 13 valent Kalyani Rachel [facility] Payers Date Payer Category Payer Self-pay [id number] 2021 Managed Care Other (unspecified) [facility] [id number] 2021 Unknown [facility] [place] MEDICARE SUPPLEMENT [id number] 2021-Present [phone] [address] [place] [address] Indemnity [id number] 2021 Unknown [id number] 2021 Unknown [id number] 2019 Medicare MEDICARE MEDICAR E A AND B [id number] 2019-Present [phone] [facility] [id number] [place] [address] Medicare [id number]. [id number] 2019 Medicare [id number] 1.13.159.2. [id number] 1959 Medicare [id number] 2.16.840.1.012182.19 1959 Unknown [id number] 2.16.840.1.191991.19 1954 Unknown [id number] 2.16.840.1.857419.3.579.2. 356 1954 Unknown [id number] 2.16.840.1.169132.3.579.2. 593 1954 Unknown [id number] 2.16.840.1.579935.3.579.2. 593 1954 Unknown [id number] 2.16.840.1.493364.3.579.2. 1259 1954 Unknown [id number] 2.16.840.1.905869.3.579.2. 1259 1954 Unknown [id number] 2.16.840.1.806552.3.579.2. 1259 1954 Unknown [id number] 2.16.840.1.790113.3.579.2. 1286 1954 Unknown [id number] 2.16.840.1.032759.3.579.2. 1286 1954 Unknown [id number] 2.16.840.1.588132.3.579.2. 1286 1954 Unknown [id number] 2.16.840.1.503292.3.579.2. 1286 1954 Unknown [id number] 2.16.840.1.088131.3.579.2. 1286 1954 Unknown [id number] 2.16.840.1.649514.3.579.2. 1285 1954 Unknown [id number] 2.16.840.1.957044.3.579.2. 1285 1954 Unknown [id number] 2.16.840.1.481373.3.579.2. 1285 1954 Unknown [id number] 2.16.840.1.198713.3.579.2. 1285 1954 Unknown [id number] 2.16.840.1.886359.3.579.2. 1285 1954 Unknown [id number] 2.16.840.1.852215.3.579.2. 1285 1954 Unknown [id number] 2.16840.1.693554.3.579.2. 1285 1954 Unknown [id number] 2.840.1.808331.3.579.2. 1285 1954 Unknown [id number] 2.16.840.1.653570.3.579.2. 1285 1954 Unknown [id number] 2.16840.1.247833.3.579.2. 1285 1954 Unknown [id number] 2.16840.1.569231.3.579.2. 1285 1954 Unknown [id number] 2.16840.1.632706.3.579.2. 128 Unknown [id number] Unknown Hardik BC/BS [id number] Unknown [id number] 2.16840.1.530395.3.579.2. 531 Social History Date Type Detail Facility Tobacco smoking stat [facility] Unknown if ever smoked [facility] Start: 1955 Sex Assigned At Female F [facility] Start: 04-03-2022 End: 04-02-2023 Tobacco smoking status NHIS Never smoked tobacco [facility] Start: 12-08-2021 End: 06-10-2024 Alcohol intake Current drinker of alcohol (finding) [facility] Start: 03-19-2018 History SDOH Alcohol Comment socially- couple times per year [facility] Start: 1955 Sex Assigned At Not on file C [facility] Start: 11-28-2021 End: 04-03-2022 Exposure to SARS-CoV-2 (event) Not sure [facility] Start: 10-06-2020 End: 07-12-2023 Sex Assigned At [facility] Start: 03-14-2022 History SDOH Financial 5 [facility] Start: 03-14-2022 History SDOH Food Worry 1 [facility] Start: 03-14-2022 History SDOH Transpo rt Med 2 [facility] Start: 04-03-2022 End: 04-02-2023 Tobacco use and exposure Smokeless tobacco non-user [facility] Work Phone: Start: 10-06-2020 End: 07-12-2023 History of Social function [facility] How hard is it for y ou to pay for the very basics like food, housing, medical care, and heating Not hard at all [facility] (I/We) worried wheth er (my/our) food would run out before (I/we) got money to buy more. Never true [facility] In the past 12 month s, was there a time when you were not able to pay the mortgage or rent on time? No [facility] Start: 04-02-2023 Alcohol Comment rare [facility] Start: 03-31-2015 Sex Female (finding) [facility] Medical Equipment Procedure Code Equipment Code Equipment Origin al Text Equipment Identifier Dates Cement Simplex P Bone Radiopaque Full Dose - [id number] Start: 03-31-2018 Cement Simplex P Bone Radiopaque Full Dose - [id number] Start: 03-31-2018 Cement Simplex P Bone Radiopaque Full Dose - [id number] Start: 03-31-2018 Stem Triathlon 1 2mm Cocr 50mm Femoral Cemented Total Stabilized Knee - [id number] Start: 03-31-2018 Insert Triathlon 4 X3 9mm Tibial Posterior Stabilize Knee - [id number] Start: 03-31-2018 Component Triath lito 33mm X3 9mm Patellar Symmetric Knee Superior - [id number] Start: 03-31-2018 Insert Triathlon 4 X3 11mm Tibial Bearing Posterior Stabilize Knee - [id number] Start: 03-31-2018 Component Triath lito 33mm X3 9mm Patellar Symmetric Knee Superior - [id number] Start: 03-31-2018 Component Triath lito 4 Femoral Cemented Posterior Stabilize Knee Right - [id number] Start: 03-31-2018 Component Triath lito 4 Femoral Cemented Posterior Stabilize Knee Left - [id number] Start: 03-31-2018 Baseplate Triath lito 4 [place] Cocr Tibial Total Stabilize Cemented Knee - [id number] Start: 03-31-2018 Baseplate Triath lito 4 [place] Cocr Tibial Total Stabilize Cemented Knee - [id number] Start: 03-31-2018 Screw Lcp 6.5mm 8mm Partial Thread Stainless Steel 45mm 32mm Bone Large - [id number] Start: 03-31-2018 Washer Lcp 13mm 6.6mm Stainless Steel Orthopedic 4.5-7.3mm Screw Nonsterile - [id number] Start: 03-31-2018 Screw Lcp 6.5mm 8mm Full Thread Stainless Steel 35mm Bone Large Hexagonal - [id number] Start: 03-31-2018 Cca0t0.165 [place] on [facility] - [id number] Start: 06-02-2024 Cca0t0.130 [place] on [facility] - [id number] Start: 06-17-2024 Goals Date Patient Goal Desired Activity /State Clinical Notes 06-28-2021 to 07-17-2024 Laura Lowry MA - 07/17/2024 10:29 AM Halle Deutsch - 07/16/2024 3:30 PM ESTPatient Mitch Graham MD - 07/16/2024 9:05 AM Sandy Edwards MD, PhD - 07/15/2024 2:06 PM EST Note Date & Type Note Facility 07-17-2024 Note HNO ID: [id number] Author: LAURA LOWRY MA Service: ? Author Type: Repairer [employer] Type: Progress Notes Filed: 07/17/2024 10:31 Note Text: Patient identified by 2 identifiers. EKG performed as ordered. Laura Lowry MA [facility] 07-17-2024 History of Presen t illness Narrative Patient identified by 2 identifiers. EKG performed as ordered. Laura Lowry MA documented in this encounter [facility] 07-16-2024 History of Presen t illness Narrative Images from the original note were not included. [facility] received prescription(s) for Kisqali from Dr. Neri's office. Benefits investigation was conducted, indicating that a prior authorization is required by patient's insurance plan with [employer]. Encounter will be updated once prior authorization has been submitted by [facility]. Halle Serrato [facility], Oncology P: / F: documented in this encounter [facility] 07-16-2024 Note [facility] 07-16-2024 Note [facility] 07-16-2024 Note [facility] 07-16-2024 Note [facility] 07-16-2024 Instructions Cinthia Mcintosh LPN - 07/16/2024 9:21 AM EST Schedule EKG wallace (francine) Schedule EKG 1 week after you start Schedule Office visit with Dr Culver in 3 weeks documented in this encounter [facility] 07-16-2024 Note [facility] 07-16-2024 History of Presen t illness Narrative PATIENT NAME: Minal Caputo [facility] NO.: [id number] ATTENDING PHYSICIAN: Mitch Neri MD DATE OF SERVICE: July 16, 2024 Some of the elements of this note have been copied from my previous progress note dated 06/03/2024. All the information has been reviewed carefully. Dear Dr. Mendoza Yang here is an update on a follow up visit on female Minal Caputo at the clinic July 16, 2024 Diagnosis: L Breast Cancer: pT3,N3,M0, Grade 2 ILC, 6.3 cm, LVI present, Margins Negative, ER 80%, KS 5% and Her-2 IHC-0 Germline testing 07/2023: [...] intussusception technique, September 04, 2023 DDAC started 10/22/2023, second cycle 11/05/2023 both complicated by neutropenic fever. After discussion switched to weekly taxol 12/03/2023, requested time off due to fungal skin infection and resumed 12/31/2023-course was again complicated by diverticulitis. After lengthy discussion with the patient elected to stop further chemo. Only received 2 weeks of Taxol in total. PE 11/05/2023 on Eliquis-completed 3 months of anticoagulation. 5. Radiation L chest wall and regional nodes 03/03/2024-03/24/2024 6. Zometa q 6 months started 04/21/2024-next September 2024 7. Arimdex 04/2024 8. Verzinio End of April 2024- required dose reduction due to GI AE.-- 100 mg PO BID- 05/2024- Stopped 06/2024 due to diarrhea. 9. Ribociclib 400 mg 21 out of 28 days started June 2020 HPI: Minal Caputo is a 68 year [...] grade 1 invasive lobular carcinoma ER 80%, KS 5% and HER2/akash with IHC 0. A [...] to transfer her care to the [facility] and underwent a L breast mastectomy [...] skin without any abnormalities. Interval History: She states that she could not tolerate the lower dose Verzenio. She continues to have diarrhea and abdominal cramping. She stopped the Verzenio approximately 3 to 4 days ago and since then she actually states that she is starting to feel better. She denies any nausea or vomiting. She denies any abdominal pain. She did have her thyroid nodule biopsied recently and the results are currently pending. PAST MEDICAL HISTORY Diagnosis Date Atrial fibrillation (HCC) Diverticulitis GERD (gastroesophageal reflux disease) Hiatal hernia HLD (hyperlipidemia) HTN (hypertension) Obesity, unspecified Other and unspecified hyperlipidemia Scoliosis Spinal stenosis, unspecified region other than cervical UTI (urinary tract infection) Social History Tobacco Use Smoking status: Never Smokeless tobacco: Never Vaping Use Vaping status: Never Used Substance Use Topics Alcohol use: Yes Comment: socially- couple times per year Drug use: Never FAMILY HISTORY Problem Relation Age of Onset Cancer Father prostate Heart Father chf Lipids Father Hypertension Father Prostate Cancer Father 70 Cataract Mother Hypertension Mother Lipids Mother Glaucoma Sister Rectal Cancer Sister 71 Stroke Sister 28 Cataract Brother Breast Cancer Paternal Aunt 60 - 69 Macular Degen Other Difficulty with anesthesia No Family History Blindness No Family History Amblyopia No Family History Strabismus No Family History Past medical, social and [...] of hands/feet. No weakness. PHYSICAL EXAMINATION: BP 121/42 Pulse 73 Temp (Src) 98.1 (Temporal Artery) Resp 18 Ht 5' 2 (1.58m) Wt 280 lb 10.3 oz (127.3kg) SpO2 99% LMP 08/26/2006 BMI 51.32 kg/(m^2). Wt 125.2 kg (276 lb 0.3 [...] : Deferred LABS: Glucose (mg/dL) Date Value 07/14/2024 149 04/02/2018 129 Potassium (mmol/L) Date Value 07/14/2024 4.5 04/02/2018 4.1 Sodium (mmol/L) Date Value 07/14/2024 141 04/02/2018 136 Chloride (mmol/L) Date Value 07/14/2024 103 04/02/2018 100 CO2 (mmol/L) Date Value 07/14/2024 23 04/02/2018 25 Creatinine (mg/dL) Date Value 07/14/2024 1.72 04/02/2018 0.83 BUN (mg/dL) Date Value 07/14/2024 20 04/02/2018 16 Anion Gap (mmol/L) Date Value 07/14/2024 15 04/02/2018 11 Calcium (mg/dL) Date Value 04/02/2018 8.2 Calcium, Total (mg/dL) Date Value 07/14/2024 9.8 Protein, Total (g/dL) Date Value 07/06/2024 6.7 03/19/2018 6.8 Albumin (g/dL) Date Value 07/06/2024 4.0 03/19/2018 4.2 Bilirubin, Total (mg/dL) Date Value 07/06/2024 0.3 03/19/2018 0.5 Alkaline Phosphatase (U/L) Date Value 07/06/2024 75 03/19/2018 107 AST (U/L) Date Value 07/06/2024 10 03/19/2018 27 ALT (U/L) Date Value 07/06/2024 11 03/19/2018 38 WBC Date Value Ref Range Status 07/06/2024 5.50 3.70 - 11.00 k/uL Final RBC Date Value Ref Range Status 07/06/2024 3.48 (L) 3.90 - 5.20 m/uL Final Hemoglobin Date Value Ref Range Status 07/06/2024 11.4 (L) 11.5 - 15.5 g/dL Final Hematocrit Date Value Ref Range Status 07/06/2024 33.9 (L) 36.0 - 46.0 % Final MCV Date Value Ref Range Status 07/06/2024 97.4 80.0 - 100.0 fL Final MCH Date Value Ref Range Status 07/06/2024 32.8 26.0 - 34.0 pg Final MCHC Date Value Ref Range Status 07/06/2024 33.6 30.5 - 36.0 g/dL Final RDW-CV Date Value Ref Range Status 07/06/2024 15.8 (H) 11.5 - 15.0 % Final Platelet Count Date Value Ref Range Status 07/06/2024 255 150 - 400 k/uL Final MPV Date Value Ref Range Status 07/06/2024 8.9 (L) 9.0 - 12.7 fL Final Abs Neut Date Value Ref Range Status 07/06/2024 3.87 1.45 - 7.50 k/uL Final Lymphocytes % Date Value Ref Range Status 07/06/2024 17.1 % Final Abs Lymph Date Value Ref Range Status 07/06/2024 0.94 (L) 1.00 - 4.00 k/uL Final Monocytes % Date Value Ref Range Status 07/06/2024 4.5 % Final Abs [place] Date Value Ref Range Status 07/06/2024 0.25 <0.87 k/uL Final Eosin% Date Value Ref Range Status 11/05/2023 0.9 % Final Abs Eosin Date Value Ref Range Status 07/06/2024 0.38 <0.46 k/uL Final Basophils % Date Value Ref Range Status 07/06/2024 0.5 % Final Abs Baso Date Value Ref Range Status 07/06/2024 0.03 <0.11 k/uL Final PATH: L Breast Lumpectomy and SLN Biopsy 07/2023: INVASIVE CARCINOMA OF THE BREAST: Resection 8th Edition - Protocol posted: 11/14/2022 INVASIVE CARCINOMA OF THE BREAST: EXCISION - All Specimens SPECIMEN Procedure Total mastectomy Specimen Laterality Left TUMOR Tumor Site Lower outer quadrant to central Histologic Type Invasive lobular carcinoma Histologic Grade ([place] Histologic Score) Glandular (Acinar) / Tubular Differentiation [...] Examined (sentinel and non-sentinel) 4 Number of Kirby Nodes Examined 4 pTNM CLASSIFICATION (AJCC 8th [...] evidence of FDG avid distant metastatic disease. Mammogram R Breast 12/2023 and US: Negative. Assessment and Plan: Minal Caputo is a 67 year old year old female here for follow up. Postmenopausal female with a T3, N3, M0, invasive lobular carcinoma, grade 2, ER 80%, KS 5% and HER2/akash negative, IHC 0, cancer [...] also discussed the role of zoledronic acid. She started DDAC 10/22/2023 and has had a very hard time with both cycles and is very apprehensive about continuing chemo. I did discuss her hig risk disease and at this time will stop AC and she has agreed to transition to weekly Taxol, which she started 12/02/2022 but she has requested 2 weeks off due to skin fungal infections. I did discuss the rational for dose intensity in managing curative breast cancer to her, She resumed weekly paclitaxel again on 12/31/2023. She was again seen in the emergency room with acute diverticulitis shortly after the chemotherapy. We discussed her course with chemotherapy at great length. She has complications after each cycle of chemotherapy and therefore she has been receiving the chemotherapy rather inconsistently. Certainly she is at high risk with a number of nodes however, she also has invasive lobular carcinoma as well. With her poor tolerance overall of chemotherapy and the fact that the chemotherapy cannot be given on routine cycles we discussed and both agreed to stopping further chemotherapy and her last cycle of weekly Taxol which she only received 2 doses was 12/31/2023. She completed L breast and regional radiation 03/24/2024 Discussed adjuvant hormonal therapy with AI and also Trang in great length discussed the adverse events associated with an aromatase inhibitor including. Bone loss, fracture, vaginal dryness as well as arthralgia. We also discussed the side effects associated with Verzenio including diarrhea and leukopenia and a risk of thrombosis. All her questions were answered to her satisfaction. She was started on anastrozole early April 2024 and appears to be tolerating it well. 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 twice daily. She was unable to tolerate the 100 mg p.o. twice daily and would like to discuss an alternate option. I did discuss the rationale for the addition of the CDK 4/6 inhibitor because of her high normal volume. At this point we will stop the Verzenio and will proceed with Ribociclib at 400 mg 21/out of 28 days for 3 years. I did discuss the side effects of Ribociclib including the risk of thromboembolism, interstitial pneumonitis as well as leukopenia. She understands the requirement for EKG prior to starting therapy and during therapy to monitor her QT interval. Will schedule patient for a bone density study. This has not been completed as of yet. Acute diverticulitis-patient has had diverticulitis in the past improved on antibiotics. 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 PE Completed 3 months of NOAC and was felt to be provoked. CTA 01/2024 was negative Monitor creatinine.. Follow-up on LFTs-resolved Continue PT for lymphedema Started Zometa q 6 months 04/21/2024-next dose September 2024 See back in 3 weeks for follow-up and will also arrange for Ribociclib teaching. Thank you for the kind referral. If there are any questions and or concerns please do not hesitate to contact me at [phone]. Mitch Neri MD Hematology/Medical Oncology [facility] I spent a total of 30 minutes on the date of the service which included preparing to see the patient, [id number] patient care, completing clinical documentation, obtaining and/or reviewing separately obtained history, performing a medically appropriate examination, and counseling and educating the patient/family/caregiver. CC: Sunny Jenkins MD documented in this encounter [facility] 07-15-2024 Note [facility] 07-15-2024 Procedure note Associated Ord er(s): FNA BIOPSY Post-Procedure Diagnose(s): Multiple thyroid nodules FNA BIOPSY Referring Physician: Sandy Mcgregor MD, P* Primary Care Physician: Sunny Jenkins MD Patient on anti-platelet or anticoagulant drugs: No. The risks, benefits and anticipated outcomes of the procedure, the risks and benefits of the alternatives to the procedure, and the roles and tasks of the personnel to be involved, were discussed with the patient. Informed Consent Consent Obtained: Written [place] Protocol A moment to CARE was completed. SIGN IN Personnel directly involved with the procedure wore the appropriate PPE. Patient/Surrogate Stated/Verified: Patient name, Date of and Intended procedure TIME OUT Intended patient and procedure match the source document(s). Consent documented and matches the intended procedure. Relevant labs, photos, and/or imaging studies have been reviewed. She was positioned in decubitus with neck in extension. The skin was prepped in the usual aseptic manner. Procedure: Fine Needle Aspiration of 1 Thyroid Nodule(s). The first nodule is located in the middle right lobe. The second nodule is located in the middle left lobe. Ice pack used to numb the skin overlying the area of the nodule. through target nodule using 25 G needle(s) with ultrasound guidance. Aspirate character: a small drop of blood. Afirma sample sent. Pressure was held on to the area until hemostasis was obtained. Band aid applied to the area. Outcome: tolerated well, no immediate complications Was told to go the emergency room if there is severe pain or swelling in the neck area. Follow up will be determined once FNA cytology results are available. Follow up with referring physician. [facility] 07-15-2024 Procedure note Associated Ord er(s): FNA BIOPSY Post-Procedure Diagnose(s): Multiple thyroid nodules FNA BIOPSY Referring Physician: Sandy Mcgregor MD, P* Primary Care Physician: Sunny Jenkins MD Patient on anti-platelet or anticoagulant drugs: No. The risks, benefits and anticipated outcomes of the procedure, the risks and benefits of the alternatives to the procedure, and the roles and tasks of the personnel to be involved, were discussed with the patient. Informed Consent Consent Obtained: Written [place] Protocol A moment to CARE was completed. SIGN IN Personnel directly involved with the procedure wore the appropriate PPE. Patient/Surrogate Stated/Verified: Patient name, Date of and Intended procedure TIME OUT Intended patient and procedure match the source document(s). Consent documented and matches the intended procedure. Relevant labs, photos, and/or imaging studies have been reviewed. She was positioned in decubitus with neck in extension. The skin was prepped in the usual aseptic manner. Procedure: Fine Needle Aspiration of 1 Thyroid Nodule(s). The first nodule is located in the middle right lobe. The second nodule is located in the middle left lobe. Ice pack used to numb the skin overlying the area of the nodule. through target nodule using 25 G needle(s) with ultrasound guidance. Aspirate character: a small drop of blood. Afirma sample sent. Pressure was held on to the area until hemostasis was obtained. Band aid applied to the area. Outcome: tolerated well, no immediate complications Was told to go the emergency room if there is severe pain or swelling in the neck area. Follow up will be determined once FNA cytology results are available. Follow up with referring physician. documented in this encounter [facility] 07-15-2024 Nurse Note UNIVERSAL PROTOCOL / SAFETY CHECKLIST Procedure to be Performed: .Fine needle aspiration of the Right thyroid nodule. Sign In: A Moment of CARE was completed. Personnel directly involved with the procedure wore the appropriate PPE (Personal Protective Equipment). Patient/Surrogate Stated/Verified: PATIENT VERIFIED(optional for EMERGENT procedures): Patient name, Date of , Relevant allergies, and The intended procedure Time Out Communication: Intended patient and procedure match the source documents. Consent documented and matches the intended procedure. Relevant labs, photos, and/or imaging studies have been reviewed. Correct side/site marked and visible. No medications required for procedure. Fire risk assessed and interventions discussed. No implant(s) inserted. Sign Out: SIGN OUT (optional for EMERGENT procedures): All specimen containers correctly labeled. All instruments, equipment, possible retained foreign bodies accounted for. Post-procedure follow-up management communicated and Plan of Care Visit completed when applicable. Elsa Moore MA [facility] 07-15-2024 Nurse Note UNIVERSAL PROTOCOL / SAFETY CHECKLIST Procedure to be Performed: .Fine needle aspiration of the Right thyroid nodule. Sign In: A Moment of CARE was completed. Personnel directly involved with the procedure wore the appropriate PPE (Personal Protective Equipment). Patient/Surrogate Stated/Verified: PATIENT VERIFIED(optional for EMERGENT procedures): Patient name, Date of , Relevant allergies, and The intended procedure Time Out Communication: Intended patient and procedure match the source documents. Consent documented and matches the intended procedure. Relevant labs, photos, and/or imaging studies have been reviewed. Correct side/site marked and visible. No medications required for procedure. Fire risk assessed and interventions discussed. No implant(s) inserted. Sign Out: SIGN OUT (optional for EMERGENT procedures): All specimen containers correctly labeled. All instruments, equipment, possible retained foreign bodies accounted for. Post-procedure follow-up management communicated and Plan of Care Visit completed when applicable. Elsa Moore MA documented in this encounter [facility] 07-14-2024 Note [facility] 07-14-2024 History of Presen t illness Narrative (Z98.41) Status post cataract surgery, right (primary encounter diagnosis) Comment: 4-5 weeks S/ P PEIOL OD pt happy with improved vision Plan: spec rx given warned symptoms of PCO Follow up in 12 months FULL exam here or in [place] with Dr Millan (Z98.42) Status post cataract surgery, left Comment: 4-5 weeks S/ P PEIOL Os pt reports blur in left without correction discussed cause as uncorrected astigmatism Plan: spec rx given warned symptoms of PCO Follow up in 12 months FULL exam here or in [place] with Dr Millan I have confirmed and edited as necessary the relevant ophthalmic history, ROS, and the neuro exam findings as obtained by others. I have seen and examined this patient. I have discussed the case and the management of this patient's care with the Resident/Fellow, if applicable. I also have reviewed and agree with the assessment and plan as stated above and agree with all of its relevant components. Rakesh Palma OD July 14, 2024 4:46 PM documented in this encounter [facility] 07-07-2024 Telephone encounter Note Spoke with patient to encourage po intake, stop Verzenio-pt states she has stopped last night already and feels better today-will plan on BMP lab 07/15 while at [place] appt and have results for 07/[address] Neri. [facility] 07-07-2024 Miscellaneous Notes Spoke with patient to encourage po intake, stop Verzenio-pt states she has stopped last night already and feels better today-will plan on BMP lab 07/15 while at [place] appt and have results for 07/[address] Neri. I think that she is pre-renal and I have asked her to stop the Verzinio and push fluids and check Creat next week again, I think that she is seeing me 07/16 and we can do labs then documented in this encounter [facility] 07-07-2024 Telephone encounter Note I think that she is pre-renal and I have asked her to stop the Verzinio and push fluids and check Creat next week again, I think that she is seeing me 07/16 and we can do labs then [facility] 07-01-2024 Telephone encounter Note Please see phone encounter 06/23/24 [facility] 07-01-2024 Miscellaneous Notes Please see phone encounter 06/23/24 documented in this encounter [facility] 06-23-2024 Telephone encounter Note Patient was seen by Dr. Mcgregor for thyroid nodules in April 2024. Please advise if he can place FNA order so we can schedule. Otherwise, providers are booking far out for another consult. [facility] 06-23-2024 Miscellaneous Notes Patient was seen by Dr. Mcgregor for thyroid nodules in April 2024. Please advise if he can place FNA order so we can schedule. Otherwise, providers are booking far out for another consult. Care Coordination Triage Note [facility] Situation: Results US thyroid/parathyroid Background: Disease, current pertinent medications/treatments Invasive lobular carcinoma of breast in female Verzenio 100 mg Started Zometa q 6 months 04/21/2024-next dose September 2024 RN made call back to contact number for patient. Discussed results from US and need for biopsy follow up with endocrinology. Impression IMPRESSION: Thyroid nodule(s) is/are present. Fine needle aspiration is recommended if not previously performed. TI-RADS Category: TR4 ACR Recommendation: TI-RADS 4 nodule. FNA is recommended. ACR recommendations are strictly based on the size and imaging appearance at the time of the exam and do not consider stability or previous biopsy results. Recommendations: Per Francesco, patient directed to: -Referral to endocrinology placed to expect biopsy of nodule -Placed scheduling request Patient expressed understanding and agreeable to plan. Office contact number provided. Marlee Myers RN June 23, 2024 11:50 AM Please schedule referral to endocrinology [facility] for biopsy of thyroid nodule found on US. Please notify patient of day/time of appointment, she is expecting a call. documented in this encounter [facility] 06-23-2024 Note [facility] 06-23-2024 History of Presen t illness Narrative (Z98.41) Status post cataract surgery, right (primary encounter diagnosis) Comment 6 days post op cat surgery OD aim plano pt happy with vision Plan follow precautions shield hs, no water in eye, no pressure on eye, no heavy exertion for 2 more days USE PA qid for 2 more days then taper 321 qweekly Follow up in 3 week refract and vata (Z98.42) Status post cataract surgery, left Comment: 3 weeks Post cataract surgery OS healing well pt report achy feeling no inflammation observe no any fb tracking Plan:use PA qid x 2 days and then taper 321 q weekly same schedule as with OD Follow up in 3 weeks Discussed with patient she will need rx to correct astigmatism I have confirmed and edited as necessary the relevant ophthalmic history, ROS, and the neuro exam findings as obtained by others. I have seen and examined this patient. I have discussed the case and the management of this patient's care with the Resident/Fellow, if applicable. I also have reviewed and agree with the assessment and plan as stated above and agree with all of its relevant components. Rakesh Palma, OD June 23, 2024 12:01 PM documented in this encounter [facility] 06-23-2024 Telephone encounter Note Care Coordination Triage Note [facility] [place] Situation: Results US thyroid/parathyroid Background: Disease, current pertinent medications/treatments Invasive lobular carcinoma of breast in female Verzenio 100 mg Started Zometa q 6 months 04/21/2024-next dose September 2024 RN made call back to contact number for patient. Discussed results from US and need for biopsy follow up with endocrinology. Impression IMPRESSION: Thyroid nodule(s) is/are present. Fine needle aspiration is recommended if not previously performed. TI-RADS Category: TR4 ACR Recommendation: TI-RADS 4 nodule. FNA is recommended. ACR recommendations are strictly based on the size and imaging appearance at the time of the exam and do not consider stability or previous biopsy results. Recommendations: Per Francesco, patient directed to: -Referral to endocrinology placed to expect biopsy of nodule -Placed scheduling request Patient expressed understanding and agreeable to plan. Office contact number provided. Marlee Myers RN June 23, 2024 11:50 AM [facility] 06-23-2024 Telephone encounter Note Please schedule referral to endocrinology [facility] for biopsy of thyroid nodule found on US. Please notify patient of day/time of appointment, she is expecting a call. [facility] 06-18-2024 Note [facility] 06-18-2024 History of Presen t illness Narrative (Z98.41) Status post cataract surgery, right (primary encounter diagnosis) Comment 1 days post op cat surgery OD aim plano pt happy with vision Plan follow precautions shield hs, no water in eye, no pressure on eye, no heavy exertion Start PA qid for 1 week then taper 321 qweekly Warned of SS of RD and infection Follow up in 1 week vata (Z98.42) Status post cataract surgery, left Comment: 2 weeks Post cataract surgery OS healing well pt happy with vision Plan: follow tapering schedule with PA a Follow up in 1 week I have confirmed and edited as necessary the relevant ophthalmic history, ROS, and the neuro exam findings as obtained by others. I have seen and examined this patient. I have discussed the case and the management of this patient's care with the Resident/Fellow, if applicable. I also have reviewed and agree with the assessment and plan as stated above and agree with all of its relevant components. Rakesh Palma OD June 18, 2024 11:30 AM documented in this encounter [facility] 06-18-2024 Note [facility] 06-18-2024 History of Presen t illness Narrative Radiology Service Progress Note PATIENT NAME: Minal Caputo DATE OF SERVICE: June 18, 2024 TIME: 11:18 AM PATIENT IDENTITY VERIFICATION COMPLETED USING TWO [...] this visit? [place] Risk Wristband Applied PATIENT GENDER DATA: Female. status: : No status: NO. PATIENT RELEVANT IMPLANT DATA REVIEWED: Not Applicable PATIENT PRESENTS WITH AN IMPLANTABLE OR ATTACHED BLOW TORCH OPERATOR: No RADIOLOGY DEPARTMENT: Ultrasound PERIPHERAL IV DATA: Not applicable SIGNED BY: Poonam Oglesby RDMS, RVT June 18, 2024 11:18 AM documented in this encounter [facility] 06-10-2024 Miscellaneous Notes Minal called to inform provider a new referral for core PT is needed. She stated she talked to provider about it in her appointment. documented in this encounter [facility] 06-10-2024 Telephone encounter Note Minal called to inform provider a new referral for core PT is needed. She stated she talked to provider about it in her appointment. [facility] 06-10-2024 History of Presen t illness Narrative Images from the original note were not included. [address] [place] [id number] Subjective: Minal Caputo is a 68 y.o. female who presents for a Medicare Annual Wellness exam. The following portions of the patient's history were reviewed and updated as appropriate: Health Risk Assessment, allergies, past medical history, past surgical history, social history, family history, and immunization history Lifestyle Assessment Do you smoke or use smokeless tobacco?: No If you smoke or use smokeless tobacco, are you ready to quit?: NA Are you exposed to secondhand smoke?: No On average, how many drinks of alcohol do you consume in a week?: None Do you exercise for 30 or more minutes on average at least 3 days a week?: (!) Never Do you have any tooth, denture, or oral problems?: No Do you snore or has anyone told you that you snore?: No Do you try to eat a balanced diet?: Yes Do you have difficulty performing any of these activities? (check all that apply): (!) Dressing, Getting out of a chair, Walking Do you have difficulty performing any of these activities? (check all that apply): (!) Shopping Fall Risk Fall Risk Assessment Completed?: Yes Have you fallen in the past year?: No Are you worried about falling?: No Do you feel unsteady when standing or walking?: No Risk Stratification: Low Risk Depression Screening Little interest or pleasure in doing things: (!) Nearly every day Feeling down, depressed, or hopeless: Not at all Trouble falling or staying asleep, or sleeping too much: Not at all Feeling tired or having little energy: Not at all Poor appetite or overeating: Not at all Feeling bad about yourself - or that you are a failure or have let yourself or your family down: Not at all Trouble concentrating on things, such as reading the newspaper or watching television: Not at all Moving or speaking so slowly that other people could have noticed. Or the opposite - being so fidgety or restless that you have been moving around a lot more than usual: Not at all Thoughts that you would be better off , or of hurting yourself in some way: Not at all PEG Scale What number best describes your pain on average in the past week?: 5 What number best describes how, during the past week, pain has interfered with your enjoyment of life?: 10 - Completely interferes What number best describes how, during the past week, pain has interfered with your general activity?: 10 - Completely interferes PEG Pain Total Score: 8.33 Safety Assessment Do you have throw rugs on the floor?: (!) Yes Do you feel safe at your home?: Yes Do you feel unsteady when walking?: No Are you having difficulty with driving?: No Do you have trouble seeing?: No What assistive device do you use? (check all that apply): (!) Raised toilet seat, Cane, Walker, Wheelchair Hearing Assessment Do you strain or struggle to hear/understand conversations?: No Do you have trouble hearing the television or radio when others do not?: No Does your family ever voice concerns about your hearing?: No Do you wear hearing aid/s?: No Personal Health During the past 4 weeks, how would you rate your overall health?: (!) Fair Do you understand how to take all of your medications?: Yes How confident are you that you can control and manage most of your health problems?: (!) Somewhat confident In the past 12 months, how many times have you been hospitalized?: (!) 2 or more End of Life Planning Do you have a living will?: Yes Do you have a durable power of finance attorney?: Yes Cognitive Screening Do you have trouble remembering or recalling facts or events?: No Do family members or caregivers report that you have difficulty remembering things?: No Vitals: Vitals: 06/10/24 0921 BP: 128/68 Pulse: 72 Temp: 36.8 C (98.2 F) SpO2: 98% Body mass index is 50.85 kg/m . History: Patient Active Problem List Diagnosis Date Noted Seropositive rheumatoid arthritis ([facility]) 01/28/2024 Cancer of overlapping sites of left breast ([facility]) 07/04/2023 Abnormal glucose 04/24/2023 Severely overweight 04/24/2023 Lower leg edema 04/24/2023 Chronic left hip pain 04/24/2023 Chronic generalized pain 04/24/2023 Spinal stenosis 04/02/2023 Arthritis 04/02/2023 Hypertension 04/02/2023 GERD (gastroesophageal reflux disease) 02/08/2022 Calculus of kidney 07/06/2021 Abnormal mammogram of left breast 09/12/2020 Severe obesity (BMI >= 40) ([facility]) 09/24/2019 Primary osteoarthritis of both knees 12/23/2017 Past Medical History: Diagnosis Date Allergic Arthritis Back pain Breast cancer ([facility]) 06/26/2023 COPD (chronic obstructive pulmonary disease) ([facility]) GERD (gastroesophageal reflux disease) Heart murmur History of blood clots HTN (hypertension) Hyperlipidemia Kidney stones Obesity Pneumonia Primary invasive malignant neoplasm of female breast, left ([facility]) 06/28/2023 Recurrent UTI Rheumatoid arthritis ([facility]) Scoliosis Varicella Visual impairment glasses Past Surgical History: Procedure Laterality Date BACK SURGERY x2 SECTION COLONOSCOPY JOINT REPLACEMENT REPLACEMENT TOTAL KNEE BILATERAL SPINE SURGERY Family History Problem Relation Age of Onset Arthritis Mother Hypertension Mother Prostate cancer Father Arthritis Father Heart disease Father Hypertension Father Heart failure Father Cancer Sister Stroke Sister Rectal cancer Sister Breast cancer Paternal Aunt Diabetes Paternal Aunt Social History Tobacco Use Smoking status: Never Smokeless tobacco: Never Substance Use Topics Alcohol use: Yes Comment: rare Allergies: Allergies Allergen Reactions Adhesive Other (See Comments) Fentanyl Sulfa (Sulfonamide Antibiotics) Rash Current Outpatient Medications Medication Sig Dispense Refill abemaciclib (VERZENIO) 100 mg chemo tablet Take 1 tablet by mouth 2 (two) times a day acetaminophen (TYLENOL EXTRA STRENGTH) 500 mg tablet Take 2 tablets (1,000 mg total) by mouth every 6 (six) hours as needed for pain. 100 tablet 1 anastrozole (ARIMIDEX) 1 mg chemo tablet Take 1 tablet by mouth daily apixaban (ELIQUIS) 5 mg tablet Take 1 tablet (5 mg total) by mouth in the morning and 1 tablet (5 mg total) before bedtime. Do all this for 180 days. 180 tablet 1 atorvastatin (LIPITOR) 40 mg tablet Take 1 tablet (40 mg total) by mouth in the morning. 90 tablet 2 cholecalciferol, vitamin D3, 5,000 units tablet Take 1 tablet (5,000 Units total) by mouth in the morning. fluconazole (DIFLUCAN) 150 mg tablet TAKE 1 TABLET BY MOUTH EVERY 3 DAYS fluconazole (DIFLUCAN) 150 mg tablet Take 1 tablet (150 mg total) by mouth every third day. folic acid (FOLVITE) 1 mg tablet TAKE 1 TABLET BY MOUTH IN THE MORNING. EXCEPT THE DAYS OF TAKING METHOTREXATE. 90 tablet 1 furosemide (LASIX) 20 mg tablet Take 1 tablet (20 mg total) by mouth 2 (two) times a day before meals. 180 tablet 1 Lactobacillus acidophilus 500 million cell tablet Take by mouth daily. losartan (COZAAR) 50 mg tablet Take 1 tablet (50 mg total) by mouth in the morning. 180 tablet 2 methotrexate 2.5 mg chemo tablet TAKE 6 TABLETS ONCE A WEEK. 6 tablet 0 metoprolol tartrate (LOPRESSOR) 50 mg tablet Take 1 tablet (50 mg total) by mouth in the morning and 1 tablet (50 mg total) before bedtime. 180 tablet 2 naproxen (NAPROSYN) 500 mg tablet Take 1 tablet (500 mg total) by mouth in the morning and 1 tablet (500 mg total) before bedtime. 60 tablet 2 nystatin-triamcinolone (MYCOLOG II) ointment Apply 1 Application topically in the morning and 1 Application before bedtime. 30 g 0 potassium chloride (K-TAB,KLOR-CON) 10 MEQ CR tablet Take 1 tablet (10 mEq total) by mouth in the morning and 1 tablet (10 mEq total) before bedtime. 180 tablet 1 spironolactone (ALDACTONE) 25 mg tablet Take 1 tablet (25 mg total) by mouth in the morning. 90 tablet 2 letrozole (FEMARA) 2.5 mg chemo tablet Take 1 tablet by mouth daily (Patient not taking: Reported on 06/10/2024) 90 tablet 3 predniSONE 5 mg tablets,dose pack One tab in the morning and one evening in the evening. 60 each 0 No current facility-administered medications for this visit. Immunization History Administered Date(s) Administered COVID-19 Vaccine, vector-nr, [id number], PF, 0.5mL 11/23/2020 COVID-19, mRNA, LNP-S, PF, 100mcg/0.5mL Dose 07/19/2021, 12/09/2022 Pneumococcal Conjugate 13-Valent 08/04/2016, 02/14/2021 Pneumococcal Polysaccharide 12/31/2021 Zoster Vaccine Recombinant 02/14/2021, 04/28/2022 Cognitive Screening; Clock Drawing Test: Normal Sensory Screening: No results found. Review of Systems: Review of Systems Constitutional: Positive for activity change and fatigue. Negative for appetite change, chills and fever. Respiratory: Negative for cough, chest tightness, shortness of breath and wheezing. Cardiovascular: Negative for chest pain and palpitations. Gastrointestinal: Negative for abdominal pain, nausea and vomiting. Genitourinary: Negative for dysuria, frequency, hematuria and urgency. Musculoskeletal: Positive for arthralgias, back pain and myalgias. Neurological: Positive for weakness. Negative for tremors, seizures and facial asymmetry. Psychiatric/Behavioral: Positive for dysphoric mood. All other systems reviewed and are negative. Objective: Physical Exam Vitals reviewed. Constitutional: General: She is not in acute distress. Appearance: Normal appearance. Eyes: Extraocular Movements: Extraocular movements intact. Pupils: Pupils are equal, round, and reactive to light. Cardiovascular: Rate and Rhythm: Normal rate and regular rhythm. Pulses: Normal pulses. Heart sounds: Normal heart sounds. Pulmonary: Effort: Pulmonary effort is normal. No respiratory distress. Breath sounds: Normal breath sounds. No wheezing or rhonchi. Abdominal: General: Bowel sounds are normal. There is no distension. Palpations: Abdomen is soft. There is no mass. Tenderness: There is no abdominal tenderness. There is no right CVA tenderness, left CVA tenderness or guarding. Musculoskeletal: Cervical back: Normal range of motion and neck supple. Neurological: Mental Status: She is alert and oriented to person, place, and time. Mental status is at baseline. Hospital Outpatient Visit on 01/17/2024 Component Date Value Ref Range Status Sodium 01/17/2024 141 134 - 146 mmol/L Final Potassium, Bld 01/17/2024 4.0 3.5 - 5.0 mmol/L Final Chloride 01/17/2024 104 98 - 109 mmol/L Final CO2 01/17/2024 25 22 - 32 mmol/L Final Anion gap 01/17/2024 12 5 - 15 mmol/L Final BUN 01/17/2024 14 5 - 27 mg/dL Final Creatinine 01/17/2024 1.08 (H) 0.40 - 1.00 mg/dL Final METHOD TRACEABLE TO IDMS STANDARD Glucose 01/17/2024 134 (H) 65 - 99 mg/dL Final Calcium 01/17/2024 9.3 8.5 - 10.5 mg/dL Final Total Protein 01/17/2024 6.6 6.0 - 8.0 g/dL Final Albumin 01/17/2024 4.0 3.2 - 5.3 g/dL Final Alkaline Phosphatase 01/17/2024 82 39 - 130 U/L Final AST 01/17/2024 46 (H) 0 - 41 U/L Final ALT 01/17/2024 107 (H) 0 - 31 U/L Final Total bilirubin 01/17/2024 0.3 0.3 - 1.2 mg/dL Final eGFR (CKD-EPI)non-race dependent 01/17/2024 56 (L) >59 ml/min/1.73sq.m Final Comment: Reported eGFR is based on the CKD-EPI 2020 equation that does not use a race coefficient. Assessment/Plan: Minal Caputo has been seen for a well visit today. Preventative recommendations were reviewed. Any chronic conditions that have been addressed include those listed below. CARE TEAM: -PCP -Oncology - [facility] - Breast Ca and Thyroid nodules - Personalized Prevention Plan Services: Specialty Evaluation Advised:N/A Preventative Programs Recommended: N/A Prevention Counseling and Education Materials:Staying Healthy: Medicare's Preventive Services ([facility]) Diseases: Breast Cancer: What you need to know (CDC), Know the Facts about Heart Disease (CDC), and Osteoporosis: The bone thief ([facility]) Immunizations: Understanding how vaccines work (CDC) Nutrition: Healthy eating after 50 ([facility]) and Common questions ([facility]) Activity/Exercise/Safety/Misc: Road to Independent Driving ([employer]) The above recommendations were discussed with patient Minal was seen today for annual exam. Diagnoses and all orders for this visit: Medicare annual wellness visit, subsequent Seropositive rheumatoid arthritis ([facility]) - predniSONE 5 mg tablets,dose pack; One tab in the morning and one evening in the evening. Hip pain, unspecified laterality - predniSONE 5 mg tablets,dose pack; One tab in the morning and one evening in the evening. Polyarthralgia - predniSONE 5 mg tablets,dose pack; One tab in the morning and one evening in the evening. Female with complicated medical history, currently following Oncology [facility] for breast cancer. She is primarily fixated on her hiatal hernia and hip arthritis which she has had assessed proximally 2 years ago, was reminded to work on losing weight before surgery could be offered, subsequently breast cancer has been diagnosed. Endorses reasonable sleep. Patient was struggling with coping, We had extensive discussion today regarding mood, motivation and her options available to dress her knee and hip pain. She was unwilling to [place] referrals or consult services to consider her options. Refused any pain control medicine. Refused any mood stabilizing medicine. Ultimately settled on prednisone to help with polyarthralgia Patient will follow with Rheumatology in the near future as well to re-initiate DMARDs when safe. There are no Patient Instructions on file for this visit. SNUNY JENKINS MD 06/10/24 documented in this encounter [facility] 06-09-2024 Note [facility] 06-09-2024 History of Presen t illness Narrative (Z98.42) Status post cataract surgery, left (primary encounter diagnosis) Comment: 1 week S/P PEIOL OS healing well pt happy with improved vision Plan: advised follow tapering schedule with PA 3-2-1 (H25.811) Combined forms of age-related cataract of right eye Comment: advanced cataract Plan follow up next Saturday for cat sx OD aim plano I have confirmed and edited as necessary the relevant ophthalmic history, ROS, and the neuro exam findings as obtained by others. I have seen and examined this patient. I have discussed the case and the management of this patient's care with the Resident/Fellow, if applicable. I also have reviewed and agree with the assessment and plan as stated above and agree with all of its relevant components. Rakesh Palma, TRIXIE June 09, 2024 11:23 AM documented in this encounter [facility] 06-03-2024 Instructions Yvonne Marsh LPN - 06/03/2024 2:49 PM EDT Labs in [facility] in 1 week MD exam and labs prior to the visit in 6 weeks documented in this encounter [facility] 06-03-2024 Telephone encounter Note Faxed new verzenio rx with dose reduction along with OV notes today hem/onc for Verzenio 100mg tablet BID to [facility] pharmacy at fax: [phone]. [facility] 06-03-2024 Miscellaneous Notes Faxed new verzenio rx with dose reduction along with OV notes today hem/onc for Verzenio 100mg tablet BID to [facility] pharmacy at fax: [phone]. documented in this encounter [facility] 06-03-2024 Note [facility] 06-03-2024 History of Presen t illness Narrative PATIENT NAME: Minal Porrasbrandonlucie CLINIC NO.: [id number] ATTENDING PHYSICIAN: Mitch Neri MD DATE OF SERVICE: June 03, 2024 Some of the elements of this note have been copied from my previous progress note dated 04/21/2024. All the information has been reviewed carefully. Dear Dr. Mendoza Yang here is an update on a follow up visit on female Minal Caputo at the clinic June 03, 2024 Diagnosis: L Breast Cancer: pT3,N3,M0, Grade 2 ILC, 6.3 cm, LVI present, Margins Negative, ER 80%, KS 5% and Her-2 IHC-0 Germline testing 07/2023: [...] intussusception technique, September 04, 2023 DDAC started 10/22/2023, second cycle 11/05/2023 both complicated by neutropenic fever. After discussion switched to weekly taxol 12/03/2023, requested time off due to fungal skin infection and resumed 12/31/2023-course was again complicated by diverticulitis. After lengthy discussion with the patient elected to stop further chemo. Only received 2 weeks of Taxol in total. PE 11/05/2023 on Eliquis 5. Radiation L chest wall and regional nodes 03/03/2024-03/24/2024 6. Zometa q 6 months started 04/21/2024 7. Arimdex 04/2024 8. Verzinio End of April 2024- required dose reduction due to GI AE.-- 100 mg PO BID- 05/2024 HPI: Minal Caputo is a 68 year [...] grade 1 invasive lobular carcinoma ER 80%, KS 5% and HER2/akash with IHC 0. A [...] to transfer her care to the [facility] and underwent a L breast mastectomy [...] breast skin without any abnormalities. Interval History: Since starting the Verzenio she has noted increasing bloating as well as increasing softer stool 4-6 times per day. She denies nausea vomiting fevers or chills. She believes that she is drinking plenty. Denies any nausea or vomiting. Denies any abdominal pains. Denies any fevers. PAST MEDICAL HISTORY Diagnosis Date Atrial fibrillation (HCC) Diverticulitis GERD (gastroesophageal reflux disease) Hiatal hernia HLD (hyperlipidemia) HTN (hypertension) Obesity, unspecified Other and unspecified hyperlipidemia Scoliosis Spinal stenosis, unspecified region other than cervical UTI (urinary tract infection) Social History Tobacco Use Smoking status: Never Smokeless tobacco: Never Vaping Use Vaping status: Never Used Substance Use Topics Alcohol use: Yes Comment: socially- couple times per year Drug use: Never FAMILY HISTORY Problem Relation Age of Onset Cancer Father prostate Heart Father chf Lipids Father Hypertension Father Prostate Cancer Father 70 Cataract Mother Hypertension Mother Lipids Mother Glaucoma Sister Rectal Cancer Sister 71 Stroke Sister 28 Cataract Brother Breast Cancer Paternal Aunt 60 - 69 Macular Degen Other Difficulty with anesthesia No Family History Blindness No Family History Amblyopia No Family History Strabismus No Family History Past medical, social and [...] tingling of hands/feet. No weakness. PHYSICAL EXAMINATION: LMP 08/26/2006 Wt 125.2 kg (276 lb 0.3 oz) [...] : Deferred LABS: Glucose (mg/dL) Date Value 06/01/2024 146 04/02/2018 129 Potassium (mmol/L) Date Value 06/01/2024 4.5 04/02/2018 4.1 Sodium (mmol/L) Date Value 06/01/2024 138 04/02/2018 136 Chloride (mmol/L) Date Value 06/01/2024 104 04/02/2018 100 CO2 (mmol/L) Date Value 06/01/2024 26 04/02/2018 25 Creatinine (mg/dL) Date Value 06/01/2024 1.92 04/02/2018 0.83 BUN (mg/dL) Date Value 06/01/2024 29 04/02/2018 16 Anion Gap (mmol/L) Date Value 06/01/2024 8 04/02/2018 11 Calcium (mg/dL) Date Value 04/02/2018 8.2 Calcium, Total (mg/dL) Date Value 06/01/2024 9.8 Protein, Total (g/dL) Date Value 06/01/2024 6.7 03/19/2018 6.8 Albumin (g/dL) Date Value 06/01/2024 4.0 03/19/2018 4.2 Bilirubin, Total (mg/dL) Date Value 06/01/2024 0.3 03/19/2018 0.5 Alkaline Phosphatase (U/L) Date Value 06/01/2024 90 03/19/2018 107 AST (U/L) Date Value 06/01/2024 17 03/19/2018 27 ALT (U/L) Date Value 06/01/2024 18 03/19/2018 38 WBC Date Value Ref Range Status 06/01/2024 4.40 3.70 - 11.00 k/uL Final RBC Date Value Ref Range Status 06/01/2024 3.83 (L) 3.90 - 5.20 m/uL Final Hemoglobin Date Value Ref Range Status 06/01/2024 12.1 11.5 - 15.5 g/dL Final Hematocrit Date Value Ref Range Status 06/01/2024 36.5 36.0 - 46.0 % Final MCV Date Value Ref Range Status 06/01/2024 95.3 80.0 - 100.0 fL Final MCH Date Value Ref Range Status 06/01/2024 31.6 26.0 - 34.0 pg Final MCHC Date Value Ref Range Status 06/01/2024 33.2 30.5 - 36.0 g/dL Final RDW-CV Date Value Ref Range Status 06/01/2024 14.0 11.5 - 15.0 % Final Platelet Count Date Value Ref Range Status 06/01/2024 237 150 - 400 k/uL Final MPV Date Value Ref Range Status 06/01/2024 9.0 9.0 - 12.7 fL Final Abs Neut Date Value Ref Range Status 06/01/2024 2.75 1.45 - 7.50 k/uL Final Lymphocytes % Date Value Ref Range Status 06/01/2024 20.9 % Final Abs Lymph Date Value Ref Range Status 06/01/2024 0.92 (L) 1.00 - 4.00 k/uL Final Monocytes % Date Value Ref Range Status 06/01/2024 5.5 % Final Abs [place] Date Value Ref Range Status 06/01/2024 0.24 <0.87 k/uL Final Eosin% Date Value Ref Range Status 11/05/2023 0.9 % Final Abs Eosin Date Value Ref Range Status 06/01/2024 0.43 <0.46 k/uL Final Basophils % Date Value Ref Range Status 06/01/2024 0.9 % Final Abs Baso Date Value Ref Range Status 06/01/2024 0.04 <0.11 k/uL Final PATH: L Breast [...] Examined (sentinel and non-sentinel) 4 Number of Kirby Nodes Examined 4 pTNM CLASSIFICATION (AJCC 8th [...] evidence of FDG avid distant metastatic disease. Mammogram R Breast 12/2023 and US: Negative. Assessment and Plan: Minal Caputo is a 67 year old year old female here for follow up. Postmenopausal female with a T3, N3, M0, invasive lobular carcinoma, grade 2, ER 80%, KS 5% and HER2/akash negative, IHC 0, cancer [...] also discussed the role of zoledronic acid. She started DDAC 10/22/2023 and has had a very hard time with both cycles and is very apprehensive about continuing chemo. I did discuss her hig risk disease and at this time will stop AC and she has agreed to transition to weekly Taxol, which she started 12/02/2022 but she has requested 2 weeks off due to skin fungal infections. I did discuss the rational for dose intensity in managing curative breast cancer to her, She resumed weekly paclitaxel again on 12/31/2023. She was again seen in the emergency room with acute diverticulitis shortly after the chemotherapy. We discussed her course with chemotherapy at great length. She has complications after each cycle of chemotherapy and therefore she has been receiving the chemotherapy rather inconsistently. Certainly she is at high risk with a number of nodes however, she also has invasive lobular carcinoma as well. With her poor tolerance overall of chemotherapy and the fact that the chemotherapy cannot be given on routine cycles we discussed and both agreed to stopping further chemotherapy and her last cycle of weekly Taxol which she only received 2 doses was 12/31/2023. She completed L breast and regional radiation 03/24/2024 Discussed adjuvant hormonal therapy with AI and also Trang in great length discussed the adverse events associated with an aromatase inhibitor including. Bone loss, fracture, vaginal dryness as well as arthralgia. We also discussed the side effects associated with Verzenio including diarrhea and leukopenia and a risk of thrombosis. All her questions were answered to her satisfaction. She was started on anastrozole early April 2024 and appears to be tolerating it well. 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 twice daily. We also discussed symptomatic management of her diarrhea. Will schedule patient for a bone density study. This has not been completed as of yet. Acute diverticulitis-patient has had diverticulitis in the past improved on antibiotics. 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 PE Completed 3 months of NOAC and was felt to be provoked. CTA 01/2024 was negative Increasing creatinine, related to diarrhea. Suggested increase p.o. hydration. It also could be secondary to the Verzenio. As mentioned increase hydration, repeat labs along with Cystatin C in 1 week. Follow-up on LFTs-resolved Continue PT for lymphedema Started Zometa q 6 months 04/21/2024-next dose September 2024 See back in 6 weeks and labs next week. Thank you for the kind referral. If there are any questions and or concerns please do not hesitate to contact me at [phone]. Mitch Neri MD Hematology/Medical Oncology [facility] Francine Katja spent a total of 30 minutes on the date of the service which included preparing to see the patient, [id number] patient care, completing clinical documentation, obtaining and/or reviewing separately obtained history, performing a medically appropriate examination, and counseling and educating the patient/family/caregiver. CC: Sunny Jenkins MD documented in this encounter [facility] 06-03-2024 Note [facility] 06-03-2024 History of Presen t illness Narrative S/P Cataract Surgery with a Posterior Chamber lens implant left eye , AIM PLANO -- Doing Well Pred 1% -- one drop in the operated eye four times a day X 1 week, then three times a day X 1 week, then twice a day X 1 week, then once a day X 1 week, and then D/C No heavy lifting or swimming X two weeks. Wear the protective shield on the operated eye while sleeping X 1 week. Call if any increase in pain, redness or blurred vision develops. I have confirmed and edited as necessary the relevant HPI, ophthalmic history, ROS, and the neuro exam findings as obtained by others. I have seen and examined Minal Caputo. I have discussed the case and the management of this patient's care with the Resident/Fellow, if applicable. I also have reviewed and agree with the assessment and plan as stated above and agree with all of its relevant components. documented in this encounter [facility] 06-03-2024 Miscellaneous Notes Patient called and left voicemail requesting a refill on metoprolol tartrate 50 mg to [facility] pharmacy in [place]. Pended in chart. documented in this encounter [facility] 06-03-2024 Telephone encounter Note Patient called and left voicemail requesting a refill on metoprolol tartrate 50 mg to [facility] pharmacy in [place]. Pended in chart. [facility] 05-19-2024 Note [facility] 05-19-2024 History of Presen t illness Narrative Confirmed Aim: [place] Patient wishes to proceed plano both eyes, understands she will need glasses for near vision. Prior Refractive surgery No Written pre-op instructions regarding eye drops and care reviewed with patient. MARISA Valentine May 19, 2024 2:38 PM documented in this encounter [facility] 05-19-2024 History and physical note Images from the original note were not included. [facility] HISTORY AND PHYSICAL EXAMINATION SERVICE DATE: 05/19/2024 SERVICE TIME: 1:58 PM PRIMARY CARE PHYSICIAN: Sunny Jenkins MD REASON FOR VISIT: Minal Caputo is a 68 year old female who is scheduled for at the request of Dr. Johanne Fitzgerald for consultation. My final recommendation will be communicated back to the requesting physician by way of shared medical record or letter. Assessment Morbid obesity (HCC) Assessmet Body mass index is 50.81 kg/m . Multiple thyroid nodules Assessment: Following with Dr. Mcgregor incidental finding on CT during breast cancer work up. Low risk history for thyroid CA Pulmonary embolism (HCC) Assessment: PE 11/05/2023 was on Eliquis for 3 months Invasive lobular carcinoma of breast in female (HCC) Assessment: History of Left mastectomy with chemo and radiation Radiation L chest wall and regional nodes 03/03/2024-03/24/2024 . Zometa q 6 months started 04/21/2024 Arimdex 04/2024 Verzinio 04/2024 Following with oncology Primary hypertension Assessment: Stable on medication Today 145/82 To take medication morning of surgery Mixed hyperlipidemia Assessment: stable on medication Palpitations Assessment: evaluated for possible atrial fibrillation on metoprolol Follows with Dr. John Dc ( Cardiology, Last office visit 02/05/2023) :No additional treatment is needed at this time. Pt. is currently Asymptomatic PETERSON (dyspnea on exertion) Assessment: Chronic, denies any worsening from baseline Does not use any inhalers, no O2 RA at 96& Clear lungs sounds Disorder of mitral valve Assessment: trace mitral regurgitation per 08/2023 ECHO (+) systolic cardiac murmur RA (rheumatoid arthritis) ([facility]) Assessment: sero positive RA methotrexate and folic acid Follows with Dr. Celia Lewis GERD (gastroesophageal reflux disease) Assessment: stable on Nexium Richardson Activity Status Index: METS: Walk indoors, such as around the house (1.75 METs) Do light work around the house, such as dusting or washing dishes (2.70 METs) Take care of self; that is eating, dressing, bathing, using the toilet (2.75 METs) Walk a block or two on level ground (2.75 METs) DASI Score: 9.95 Patient is limited most or all of the time (uses scooter, mobility device) (walks with walker). Clinical Frailty Scale: 4. Apparently vulnerable STOP-Bang Score: Has or is being treated for high blood pressure BMI greater than 35 kg/m^2 Patient over 50 years old Has a large neck Denies snoring loudly Denies feeling tired, fatigued, or sleepy during the daytime Has not been observed to stop breathing or choking/gasping during sleep Non-male patient STOP-Bang Score: 4 [id number] Score: Age: 65-74 Sex: female CHF history: No Hypertension history: Yes Stroke/TIA/thromboembolism history: No Vascular disease history: No Diabetes history: No [id number] Score: 3 ARISCAT Score: Age: 51-80 Preoperative SpO2: >=96% Respiratory infection in the last month: No Preoperative anemia: No Surgical incision: peripheral Duration of surgery: <2 hrs Emergency procedure: No ARISCAT Score: 3 ANESTHESIA FINDINGS: Intubation History: No history of difficult intubation. No abnormal airway history Significant Anesthesia Considerations: none Airway History: No history of difficult airway No abnormal airway history I - PHYSICAL EVALUATION AIRWAY Patient intubated: No. Tracheostomy tube not present Mallampati: II. TM distance: >3 FB. Neck ROM: limited extension. Mouth opening: adequate. Short neck: yes. Thick neck: yes Lip Bite Test: I Microretrognathia/Micronagthia/R ecessed Chin: No DENTAL Dental findings: teeth intact. II - ANESTHESIA PLAN Anesthetic plan additional comments: *PACC/TCI - anesthesia choice. Beta Rajan Monitoring Plan Post Procedure Analgesic Plan Prepared for surgery: This patient is optimally prepared for surgery CONSULTS: Patient does not require consults for optimization at this time. The Following Tests/Procedures Have Been Initiated: Labs not indicated per PACC protocol, EKG not indicated per PACC protocol Planned Anesthetic: Per anesthesia choice Subjective CHIEF COMPLAINT: Bilateral change of vision HPI: 68 year old female with bilateral change of vision that has been ongoing for 6 months. Patient states she has :blurred Vision,decreased vision,dryness,flashes,floaters, itching . No alleviating factors. NO pain today REVIEW OF SYSTEMS: PAIN ASSESSMENT: General: No weight loss, malaise or fevers. Neuro: No history of TIA's, stroke, CONTROL SUPERVISOR tumor, impaired sensorium, hemiplegia, paraplegia or quadraplegia. No neurological symptoms or problems. Respiratory: Positive for Chronic PETERSON, Negative for Asthma, Bronchitis, Current cough, Tobacco Use, URI < 2 weeks, Wheezing Cardiovascular: Positive for HTN, HLD +Palpitations History of PE was on Eliquis for 3 months no history of angina, CHF, IN, cardiac surgery or stents. Denies rest pain, gangrene or revascularization/amputation for PVD GI: Positive for GERD, Hiatal hernia , Negative for Abdominal pain, Hepatitis, Liver disease, IBS, Colon cancer, Rectal cancer : No difficulty urinating, nocturia > 1 time per night or hematuria, Positive for history of kidney stones BUNCH BREAKER: Negative for abnormal vaginal bleeding, abnormal vaginal discharge. : Denies, Patient's last menstrual period was 08/26/2006 (approximate). Endocrine: + Thyroid Nodules No history of diabetes. Has not taken steroids within the past 30 days. No history of endocrinological symptoms or problems. Hematology: No history of bleeding or clotting disorder. Pt is not taking anti-coagulation or platelet medications. No history of hematological symptoms or problems. Oncology: History of Breast CA s/p mastectomy with chemo and radiation on Arimidex Psych: No history of psychiatric symptoms or problems. Musculoskeletal: Back pain and Joint pain Skin: Negative for lesions, rash and itching. The patient has the following: ACTIVE PROBLEM LIST Spinal Stenosis, Unspecified Region Other Than Cervical Mixed Hyperlipidemia Obesity, unspecified Undiagnosed Cardiac Murmurs Disorder of Mitral Valve Idiopathic Scoliosis and [...] (Hcc) Obesity, Class III, BMI >= 40 Stage 3a Chronic Kidney Disease (Hcc) Multiple Thyroid Nodules Pulmonary Embolism (Hcc) Covid Immunization Dates Overdue - Covid-19 Vaccine () Overdue since 04/26/2024 12/09/2022 Imm Admin: COVID-19 original vaccine, full dose, monovalent (MODERNA) 07/19/2021 Imm Admin: COVID-19 original vaccine, full dose, monovalent (MODERNA) 11/23/2020 Imm Admin: COVID-19 vaccine (ROMINA) PAST MEDICAL HISTORY Diagnosis Date Atrial fibrillation (HCC) Diverticulitis GERD (gastroesophageal reflux disease) Hiatal hernia HLD (hyperlipidemia) HTN (hypertension) Obesity, unspecified Other and unspecified hyperlipidemia Scoliosis Spinal stenosis, unspecified region other than cervical UTI (urinary tract infection) PAST SURGICAL HISTORY Procedure Laterality Date , CLASSIC, IN-HOSP CARE 1980 COLONOSCOPY CURETTAGE EGD MASTECTOMY, SIMPLE, COMPLETE Left PAST SURGICAL HISTORY OF 1986 spinal instrumentation (Valadez rods) PAST SURGICAL HISTORY OF 2006 lumbar laminectomy PAST SURGICAL HISTORY OF hysteroscopy with removal of fibroid, cyst, polyps PAST SURGICAL HISTORY OF Bilateral total knee arthroplasty [place] FAMILY HISTORY Problem Relation Age of Onset Cancer Father prostate Heart Father chf Lipids Father Hypertension Father Prostate Cancer Father 70 Cataract Mother Hypertension Mother Lipids Mother Glaucoma Sister Rectal Cancer Sister 71 Stroke Sister 28 Cataract Brother Breast Cancer Paternal Aunt 60 - 69 Macular Degen Other Difficulty with anesthesia No Family History Blindness No Family History Amblyopia No Family History Strabismus No Family History Social History Tobacco Use Smoking status: Never Smokeless tobacco: Never Vaping Use Vaping status: Never Used Substance Use Topics Alcohol use: Yes Comment: socially- couple times per year Drug use: Never Prior to Admission medications as of 05/19/24 1415 Medication Sig Last Dose Taking anastrozole (ARIMIDEX) 1 mg tablet Take 1 tablet by mouth once daily. Taking Yes abemaciclib (VERZENIO) 150 mg tablet Take 1 tablet (150 mg) by mouth two times a day. Taking Yes NAPROXEN ORAL Take by mouth two times a day. Taking Yes cholecalciferol (VITAMIN D-3) 5,000 unit tab Take 5,000 Units by mouth once daily. Taking Yes spironolactone (ALDACTONE) 25 mg tablet Take 1 tablet by mouth every afternoon. Taking Yes atorvastatin (LIPITOR) 20 mg tablet Take 1 tablet by mouth once daily. Patient taking differently: Take 40 mg by mouth once daily. Taking Yes losartan (COZAAR) 50 mg tablet Take 50 mg by mouth once daily. Taking Yes esomeprazole magnesium (NEXIUM ORAL) Take 20 mg by mouth once daily. Taking Yes furosemide (LASIX) 20 mg tablet Take 20 mg by mouth once daily. [...] Adhesive Tape-Silic* Rash Sulfa (Sulfonamide * Unknown Objective PHYSICAL EXAM: VITALS: BP 145/82 Pulse 81 Temp 98.2 Resp 16 Ht 5' 2 (1.58m) Wt 277 lb 12.5 oz (126.0kg) SpO2 96% LMP 08/26/2006 BMI 50.79 kg/(m^2). General: Alert and oriented, No acute distress, Morbidly obese Skin: Normal color, no rash, no lesions. Cardiovascular: Pulse regular. 2/6 mid systolic low pitched blowing murmur URSB and ULSB Lungs: Normal breath sounds, no wheezes or crackles. Abdomen: Soft, non-tender, no rigidity., Positive bowel sounds Extremities: No deformity, no edema or tenderness, no joint swelling or clubbing. Neurological: Abnormal gait walks with walker Pulses: Carotid and radial pulses normal +2. Diagnostic tests reviewed for today's visit: Lab Value Units Date High Low HB 11.8 g/dL 05/05/2024 15.5 11.5 HCT 37.0 % 05/05/2024 46.0 36.0 WBC 6.96 k/uL 05/05/2024 11.00 3.70 PLT 318 k/uL 05/05/2024 400 150 NA 139 mmol/L 05/05/2024 144 136 K 4.3 mmol/L 05/05/2024 5.1 3.7 GLUC 147 mg/dL 05/05/2024 99 74 BUN 15 mg/dL 05/05/2024 21 7 CREAT 1.13 mg/dL 05/05/2024 0.96 0.58 PTSEC No results within date range. INR No results within date range. APTT No results within date range. ALT 20 U/L 05/05/2024 38 7 AST 18 U/L 05/05/2024 35 13 TBILI 0.3 mg/dL 05/05/2024 1.3 0.2 TSH No results within date range. Lab Value Units Date High Low HCGQT No results within date range. UHCG No results within date range. HCG, BODY* No results within date range. Lab Value Units Date High Low ABORHD No results within date range. ABSCREEN No results within date range. Hemoglobin A1C (%) Date Value 03/14/2022 6.3 Expand All Collapse All HISTORY AND PHYSICAL EXAMINATION SERVICE DATE: 09/26/2023 [...] above; electing to proceed. PAST MEDICAL HISTORY PAST MEDICAL HISTORY Diagnosis Date Atrial fibrillation (HCC) GERD (gastroesophageal reflux disease) Hiatal hernia HLD (hyperlipidemia) HTN (hypertension) Obesity, unspecified Other and unspecified hyperlipidemia Scoliosis Spinal stenosis, unspecified region other than cervical PAST SURGICAL HISTORY PAST SURGICAL HISTORY Procedure Laterality Date , CLASSIC, IN-HOSP CARE 1980 COLONOSCOPY CURETTAGE EGD PAST SURGICAL HISTORY OF 1986 spinal instrumentation (Valadez rods) PAST SURGICAL HISTORY OF 2006 lumbar laminectomy PAST SURGICAL HISTORY OF hysteroscopy with removal of fibroid, cyst, polyps PAST SURGICAL HISTORY OF Bilateral total knee arthroplasty FAMILY HISTORY FAMILY HISTORY Problem Relation Age of Onset Hypertension Mother Lipids Mother Cancer Father prostate Heart Father chf Lipids Father Hypertension Father Prostate Cancer Father 70 Rectal Cancer Sister 71 Stroke Sister 28 Breast Cancer Paternal Aunt 60 - 69 Difficulty with anesthesia No Family History SOCIAL HISTORY: SOCIAL HISTORY Social History Tobacco Use Smoking [...] Taking Yes No medication comments found. ALLERGIES ALLERGIES Allergen Reactions Fentanyl Intolerance Drop in RR and drop in pulse ox to 70% Adhesive Tape-Silic* Rash Sulfa (Sulfonamide * Unknown COVID VACCINATION STATUS: Fully vaccinated REVIEW OF SYSTEMS: PAIN ASSESSMENT: General: No weight loss, malaise or fevers. Neuro: No history of TIA's, stroke, CONTROL SUPERVISOR tumor, impaired sensorium, hemiplegia, paraplegia or quadraplegia. [...] or incontinence,, stones or chronic kidney disease BUNCH BREAKER: See HPI : N/A, Patient's last menstrual [...] Obtained from outside source and scanned into Epic Date: 09/18/2023 Result: LV systolic function normal with EF 55-60% FULL REPORT UNDER CARDIAC TAB, dated 09/23/2023 All in Epic Instructions Given to Patient: Instructions located in the after visit summary. Patient given verbal and written preop instructions and voices comprehension and compliance. SIGNATURE: Mary Lou Singh APRN.CNP PATIENT NAME: Minal Caputo DATE: 05/19/2024 TIME: 2:02 PM [facility] 05-19-2024 History and physical note Images from the original note were not included. [facility] HISTORY AND PHYSICAL EXAMINATION SERVICE DATE: 05/19/2024 SERVICE TIME: 1:58 PM PRIMARY CARE PHYSICIAN: Sunny Jenkins MD REASON FOR VISIT: Minal Caputo is a 68 year old female who is scheduled for at the request of Dr. Johanne Fitzgerald for consultation. My final recommendation will be communicated back to the requesting physician by way of shared medical record or letter. Assessment Morbid obesity (HCC) Assessmet Body mass index is 50.81 kg/m . Multiple thyroid nodules Assessment: Following with Dr. Mcgrgeor incidental finding on CT during breast cancer work up. Low risk history for thyroid CA Pulmonary embolism (HCC) Assessment: PE 11/05/2023 was on Eliquis for 3 months Invasive lobular carcinoma of breast in female (HCC) Assessment: History of Left mastectomy with chemo and radiation Radiation L chest wall and regional nodes 03/03/2024-03/24/2024 . Zometa q 6 months started 04/21/2024 Arimdex 04/2024 Verzinio 04/2024 Following with oncology Primary hypertension Assessment: Stable on medication Today 145/82 To take medication morning of surgery Mixed hyperlipidemia Assessment: stable on medication Palpitations Assessment: evaluated for possible atrial fibrillation on metoprolol Follows with Dr. John Dc ( Cardiology, Last office visit 02/05/2023) :No additional treatment is needed at this time. Pt. is currently Asymptomatic PETERSON (dyspnea on exertion) Assessment: Chronic, denies any worsening from baseline Does not use any inhalers, no O2 RA at 96& Clear lungs sounds Disorder of mitral valve Assessment: trace mitral regurgitation per 08/2023 ECHO (+) systolic cardiac murmur RA (rheumatoid arthritis) (HCC) Assessment: sero positive RA methotrexate and folic acid Follows with Dr. Celia Lewis GERD (gastroesophageal reflux disease) Assessment: stable on Nexium Richardson Activity Status Index: METS: Walk indoors, such as around the house (1.75 METs) Do light work around the house, such as dusting or washing dishes (2.70 METs) Take care of self; that is eating, dressing, bathing, using the toilet (2.75 METs) Walk a block or two on level ground (2.75 METs) DASI Score: 9.95 Patient is limited most or all of the time (uses scooter, mobility device) (walks with walker). Clinical Frailty Scale: 4. Apparently vulnerable STOP-Bang Score: Has or is being treated for high blood pressure BMI greater than 35 kg/m^2 Patient over 50 years old Has a large neck Denies snoring loudly Denies feeling tired, fatigued, or sleepy during the daytime Has not been observed to stop breathing or choking/gasping during sleep Non-male patient STOP-Bang Score: 4 [id number] Score: Age: 65-74 Sex: female CHF history: No Hypertension history: Yes Stroke/TIA/thromboembolism history: No Vascular disease history: No Diabetes history: No [id number] Score: 3 ARISCAT Score: Age: 51-80 Preoperative SpO2: >=96% Respiratory infection in the last month: No Preoperative anemia: No Surgical incision: peripheral Duration of surgery: <2 hrs Emergency procedure: No ARISCAT Score: 3 ANESTHESIA FINDINGS: Intubation History: No history of difficult intubation. No abnormal airway history Significant Anesthesia Considerations: none Airway History: No history of difficult airway No abnormal airway history I - PHYSICAL EVALUATION AIRWAY Patient intubated: No. Tracheostomy tube not present Mallampati: II. TM distance: >3 FB. Neck ROM: limited extension. Mouth opening: adequate. Short neck: yes. Thick neck: yes Lip Bite Test: I Microretrognathia/Micronagthia/R ecessed Chin: No DENTAL Dental findings: teeth intact. II - ANESTHESIA PLAN Anesthetic plan additional comments: *PACC/TCI - anesthesia choice. Beta Rajan Monitoring Plan Post Procedure Analgesic Plan Prepared for surgery: This patient is optimally prepared for surgery CONSULTS: Patient does not require consults for optimization at this time. The Following Tests/Procedures Have Been Initiated: Labs not indicated per PACC protocol, EKG not indicated per PACC protocol Planned Anesthetic: Per anesthesia choice Subjective CHIEF COMPLAINT: Bilateral change of vision HPI: 68 year old female with bilateral change of vision that has been ongoing for 6 months. Patient states she has :blurred Vision,decreased vision,dryness,flashes,floaters, itching . No alleviating factors. NO pain today REVIEW OF SYSTEMS: PAIN ASSESSMENT: General: No weight loss, malaise or fevers. Neuro: No history of TIA's, stroke, CONTROL SUPERVISOR tumor, impaired sensorium, hemiplegia, paraplegia or quadraplegia. No neurological symptoms or problems. Respiratory: Positive for Chronic PETERSON, Negative for Asthma, Bronchitis, Current cough, Tobacco Use, URI < 2 weeks, Wheezing Cardiovascular: Positive for HTN, HLD +Palpitations History of PE was on Eliquis for 3 months no history of angina, CHF, IN, cardiac surgery or stents. Denies rest pain, gangrene or revascularization/amputation for PVD GI: Positive for GERD, Hiatal hernia , Negative for Abdominal pain, Hepatitis, Liver disease, IBS, Colon cancer, Rectal cancer : No difficulty urinating, nocturia > 1 time per night or hematuria, Positive for history of kidney stones BUNCH BREAKER: Negative for abnormal vaginal bleeding, abnormal vaginal discharge. : Denies, Patient's last menstrual period was 08/26/2006 (approximate). Endocrine: + Thyroid Nodules No history of diabetes. Has not taken steroids within the past 30 days. No history of endocrinological symptoms or problems. Hematology: No history of bleeding or clotting disorder. Pt is not taking anti-coagulation or platelet medications. No history of hematological symptoms or problems. Oncology: History of Breast CA s/p mastectomy with chemo and radiation on Arimidex Psych: No history of psychiatric symptoms or problems. Musculoskeletal: Back pain and Joint pain Skin: Negative for lesions, rash and itching. The patient has the following: ACTIVE PROBLEM LIST Spinal Stenosis, Unspecified Region Other Than Cervical Mixed Hyperlipidemia Obesity, unspecified Undiagnosed Cardiac Murmurs Disorder of Mitral Valve Idiopathic Scoliosis and [...] (Hcc) Obesity, Class III, BMI >= 40 Stage 3a Chronic Kidney Disease (Hcc) Multiple Thyroid Nodules Pulmonary Embolism (Hcc) Covid Immunization Dates Overdue - Covid-19 Vaccine ( season) Overdue since 04/26/2024 12/09/2022 Imm Admin: COVID-19 original vaccine, full dose, monovalent (MODERNA) 07/19/2021 Imm Admin: COVID-19 original vaccine, full dose, monovalent (MODERNA) 11/23/2020 Imm Admin: COVID-19 vaccine ([employer]) PAST MEDICAL HISTORY Diagnosis Date Atrial fibrillation (HCC) Diverticulitis GERD (gastroesophageal reflux disease) Hiatal hernia HLD (hyperlipidemia) HTN (hypertension) Obesity, unspecified Other and unspecified hyperlipidemia Scoliosis Spinal stenosis, unspecified region other than cervical UTI (urinary tract infection) PAST SURGICAL HISTORY Procedure Laterality Date , CLASSIC, IN-HOSP CARE 1980 COLONOSCOPY CURETTAGE EGD MASTECTOMY, SIMPLE, COMPLETE Left PAST SURGICAL HISTORY OF 1986 spinal instrumentation (Valadez rods) PAST SURGICAL HISTORY OF 2006 lumbar laminectomy PAST SURGICAL HISTORY OF hysteroscopy with removal of fibroid, cyst, polyps PAST SURGICAL HISTORY OF Bilateral total knee arthroplasty PORT FAMILY HISTORY Problem Relation Age of Onset Cancer Father prostate Heart Father chf Lipids Father Hypertension Father Prostate Cancer Father 70 Cataract Mother Hypertension Mother Lipids Mother Glaucoma Sister Rectal Cancer Sister 71 Stroke Sister 28 Cataract Brother Breast Cancer Paternal Aunt 60 - 69 Macular Degen Other Difficulty with anesthesia No Family History Blindness No Family History Amblyopia No Family History Strabismus No Family History Social History Tobacco Use Smoking status: Never Smokeless tobacco: Never Vaping Use Vaping status: Never Used Substance Use Topics Alcohol use: Yes Comment: socially- couple times per year Drug use: Never Prior to Admission medications as of 05/19/24 0965 Medication Sig Last Dose Taking anastrozole (ARIMIDEX) 1 mg tablet Take 1 tablet by mouth once daily. Taking Yes abemaciclib (VERZENIO) 150 mg tablet Take 1 tablet (150 mg) by mouth two times a day. Taking Yes NAPROXEN ORAL Take by mouth two times a day. Taking Yes cholecalciferol (VITAMIN D-3) 5,000 unit tab Take 5,000 Units by mouth once daily. Taking Yes spironolactone (ALDACTONE) 25 mg tablet Take 1 tablet by mouth every afternoon. Taking Yes atorvastatin (LIPITOR) 20 mg tablet Take 1 tablet by mouth once daily. Patient taking differently: Take 40 mg by mouth once daily. Taking Yes losartan (COZAAR) 50 mg tablet Take 50 mg by mouth once daily. Taking Yes esomeprazole magnesium (NEXIUM ORAL) Take 20 mg by mouth once daily. Taking Yes furosemide (LASIX) 20 mg tablet Take 20 mg by mouth once daily. [...] Adhesive Tape-Silic* Rash Sulfa (Sulfonamide * Unknown Objective PHYSICAL EXAM: VITALS: BP 145/82 Pulse 81 Temp 98.2 Resp 16 Ht 5' 2 (1.58m) Wt 277 lb 12.5 oz (126.0kg) SpO2 96% LMP 08/26/2006 BMI 50.79 kg/(m^2). General: Alert and oriented, No acute distress, Morbidly obese Skin: Normal color, no rash, no lesions. Cardiovascular: Pulse regular. 2/6 mid systolic low pitched blowing murmur URSB and ULSB Lungs: Normal breath sounds, no wheezes or crackles. Abdomen: Soft, non-tender, no rigidity., Positive bowel sounds Extremities: No deformity, no edema or tenderness, no joint swelling or clubbing. Neurological: Abnormal gait walks with walker Pulses: Carotid and radial pulses normal +2. Diagnostic tests reviewed for today's visit: Lab Value Units Date High Low HB 11.8 g/dL 05/05/2024 15.5 11.5 HCT 37.0 % 05/05/2024 46.0 36.0 WBC 6.96 k/uL 05/05/2024 11.00 3.70 PLT 318 k/uL 05/05/2024 400 150 NA 139 mmol/L 05/05/2024 144 136 K 4.3 mmol/L 05/05/2024 5.1 3.7 GLUC 147 mg/dL 05/05/2024 99 74 BUN 15 mg/dL 05/05/2024 21 7 CREAT 1.13 mg/dL 05/05/2024 0.96 0.58 PTSEC No results within date range. INR No results within date range. APTT No results within date range. ALT 20 U/L 05/05/2024 38 7 AST 18 U/L 05/05/2024 35 13 TBILI 0.3 mg/dL 05/05/2024 1.3 0.2 TSH No results within date range. Lab Value Units Date High Low HCGQT No results within date range. UHCG No results within date range. HCG, BODY* No results within date range. Lab Value Units Date High Low ABORHD No results within date range. ABSCREEN No results within date range. Hemoglobin A1C (%) Date Value 03/14/2022 6.3 Expand All Collapse All HISTORY AND PHYSICAL EXAMINATION SERVICE DATE: 09/26/2023 [...] above; electing to proceed. PAST MEDICAL HISTORY PAST MEDICAL HISTORY Diagnosis Date Atrial fibrillation (HCC) GERD (gastroesophageal reflux disease) Hiatal hernia HLD (hyperlipidemia) HTN (hypertension) Obesity, unspecified Other and unspecified hyperlipidemia Scoliosis Spinal stenosis, unspecified region other than cervical PAST SURGICAL HISTORY PAST SURGICAL HISTORY Procedure Laterality Date , CLASSIC, IN-HOSP CARE 1980 COLONOSCOPY CURETTAGE EGD PAST SURGICAL HISTORY OF 1986 spinal instrumentation (Valadez rods) PAST SURGICAL HISTORY OF 2006 lumbar laminectomy PAST SURGICAL HISTORY OF hysteroscopy with removal of fibroid, cyst, polyps PAST SURGICAL HISTORY OF Bilateral total knee arthroplasty FAMILY HISTORY FAMILY HISTORY Problem Relation Age of Onset Hypertension Mother Lipids Mother Cancer Father prostate Heart Father chf Lipids Father Hypertension Father Prostate Cancer Father 70 Rectal Cancer Sister 71 Stroke Sister 28 Breast Cancer Paternal Aunt 60 - 69 Difficulty with anesthesia No Family History SOCIAL HISTORY: SOCIAL HISTORY Social History Tobacco Use Smoking [...] Taking Yes No medication comments found. ALLERGIES ALLERGIES Allergen Reactions Fentanyl Intolerance Drop in RR and drop in pulse ox to 70% Adhesive Tape-Silic* Rash Sulfa (Sulfonamide * Unknown COVID VACCINATION STATUS: Fully vaccinated REVIEW OF SYSTEMS: PAIN ASSESSMENT: General: No weight loss, malaise or fevers. Neuro: No history of TIA's, stroke, CONTROL SUPERVISOR tumor, impaired sensorium, hemiplegia, paraplegia or quadraplegia. [...] or incontinence,, stones or chronic kidney disease BUNCH BREAKER: See HPI : N/A, Patient's last menstrual [...] Obtained from outside source and scanned into [facility] Date: 09/18/2023 Result: LV systolic function normal with EF 55-60% FULL REPORT UNDER CARDIAC TAB, dated 09/23/2023 All in Epic Instructions Given to Patient: Instructions located in the after visit summary. Patient given verbal and written preop instructions and voices comprehension and compliance. SIGNATURE: Mary Lou Singh APRN.CNP PATIENT NAME: Minal Caputo DATE: 05/19/2024 TIME: 2:02 PM documented in this encounter [facility] 05-19-2024 Instructions Mary Lou Singh APRN.CNP - 05/19/2024 2:15 PM EDT Images from the original note were not included. [facility] PATIENT PREOPERATIVE INSTRUCTIONS Johanne Fitzgerald MD has scheduled you for your procedure at this surgery center: [facility]: [phone] --[address] [facility] [address]. Please read below carefully for your personalized instructions. Arrival Time for Surgery: - The Surgery [...] as soon as possible and regret any inconvenience Dietary Restrictions: - No solid food after midnight. - You may have 12 ounces of clear liquids (water, clear juices such as apple juice or gatorade, carbonated beverages, clear tea, black coffee, jello) until 2 hours before scheduled arrival at facility. - no milk / coffee creamer - no pulp juices Medications: Unless instructed differently below, stay on all of your medications until your surgery. Approved medications to take the morning of surgery with a sip of water: Losartan(Cozaar), Atorvastatin(Lipitor), Metoprolol and Nexium If you start any new medications after today's visit, please contact the surgeon's office. Blood Thinning Medications: You do not need to hold blood thinners for cataract surgery Important Reminders: - If you are prescribed inhalers for breathing, continue using them. - Candy, mints, and tobacco products are NOT permitted the morning of surgery. - Hearing aids and glasses may be worn the morning of surgery. - NO jewelry, body piercings, makeup, hairpins or contacts are to be worn the day of surgery. - You may wear your partials/dentures, but you may be asked to remove them prior to you're procedure If you develop symptoms such as a [...] Procedures: - YOU MUST HAVE A RESPONSIBLE OIL FIELD TESTER TAKE YOU HOME. A MAGNETIC TESTER OR WAGE AND SALARY ADMINISTRATOR CANNOT BE MADE A RESPONSIBLE OIL FIELD TESTER. - We recommend that a responsible person stays with you overnight to take care of you. - You cannot stay in a hotel alone after outpatient surgery. You will not be permitted to have your surgery, if you do not have someone to take care of you. If you already have an Advance Directive, please fax a copy to [phone] or email to for it to be [...] and scanned into your chart that day. Mary Lou Singh APRN.HOTEL CONCIERGE documented in this encounter [facility] 05-15-2024 Note [facility] 05-15-2024 History of Presen t illness Narrative ORAL ANTI-CANCER AGENTS EDUCATION patient called today for oral medication education of Verzenio, anastrozole for Breast Cancer Anticipated/Scheduled start date: tbd abemaciclib (VERZENIO) 150 mg tablet 56 tablet 5 04/21/2024 -- Sig: Take 1 tablet (150 mg) by mouth two times a day anastrozole (ARIMIDEX) 1 mg tablet 90 tablet 0 04/21/2024 07/20/2024 Sig: Take 1 tablet by mouth once daily. enrolled to receive free Verzenio through the [employer] with approval dates 05/14/24 through 08/25/24. [employer] program contact number is [phone]. The medication will now ship through their contracted dispensing pharmacy, [facility], phone number [phone]. READINESS TO LEARN Cognitive Ability: Alert and oriented Motivation to Learn: Interested Family Support: Unable to assess - Family not present Instruction Provided to: Patient Patient learns best by: Individual Instruction Verbal Instruction Factors affecting learning: None Physical limitation affecting learning: None BARNES ASSESSMENT: 1.) Verified that patient knows that the oral agents are for cancer and are taken by mouth. Yes 2.) Medication review completed during visit. Yes 3.) Patient is able to swallow pills. Yes 4.) Patient is able to read the drug label/information. Yes 5.) Patient is able to open the medication bottles and packages. Yes 6.) Has patient taken other pills for cancer? No 7.) Is patient experiencing any symptoms that would affect their ability to keep down pills, for example nausea or vomiting? No 8.) Verified that patient understands prescription delivery, benefit investigation and refill process. Yes DRUG-SPECIFIC EDUCATION: 1.) Verified patient knows the drug name. Yes 2.) Verified patient understands the dose and schedule of oral anti cancer agent. Yes 3.) Verified patient knows what to do if a medication dose is missed. Yes 4.) Verified patient understands where to store the drug. Yes 5.) Verified patient understands potential side effects and how to manage them. Yes -reviewed diarrhea management in detail 6.)Verified patient understands handling precautions of oral anti cancer agent. Yes 7.) Verified patient was given written instructions and understands when and whom to call with questions. Yes 8.) Verified patient understands where and how to return drug. Yes 9.) Verified patient received drug specific adult education handout and neutropenic wallet card Yes EVALUATE: The patient demonstrated an understanding of all the above education using the teach-back method. Yes Instructed to call us with any questions, concerns, and/or unresolved symptoms. Will continue to follow up and provide reinforcement of teaching topics as needed. 05/21/[address] Neri labs day prior-will need to move appt due to pt not having medication yet -06/03/24 pt will come after eye appt in [place] as follow up to cataract surgery (Dr. Neri aware) and have labs done in day prior to appt Called [facility] pharmacy [phone] states they just received rx from [facility] [place] and will take 3 business days to contact patient for shipment which is done overnight once account is set up Nia Snider RN documented in this encounter [facility] 05-07-2024 Telephone encounter Note Addended office note faxed as requested. Windy Jiang RN [facility] 05-07-2024 Miscellaneous Notes Addended office note faxed as requested. Windy Jiang RN Emma, with [employer] [facility], called requesting Dr. Norman santamaria his last office note to include that Minal has been diagnosed with lymphedema in order for her insurance to cover the compression sleeve. Please fax the addended office note to [phone] ATTN: Emma. Thanks Windy Jiang RN documented in this encounter [facility] 05-05-2024 Note [facility] 05-05-2024 History of Presen t illness Narrative Ms. Caputo is here today at the request of SELF for my opinion regarding a thyroid problem. Reason for visit: thyroid nodules Radiological imaging with contrast dyes within last 3 months? no Previous laboratory results: Vitamin D 25 Hydroxy (ng/mL) Date Value 04/21/2024 62.4 07/26/2023 69.2 HPI: Minal Caputo is a 68 year old female who is presenting today May 05, 2024 for a Thyroid problem. Thyroid nodules incidentally noted on CT scan during work up for metastatic breast cancer. No thyroid activity noted on PET scan (May 2023). No follow up thyroid US. She saw ENT attempted FNA of 2 hypoechoic nodules in left and right lobes of the thyroid. No pathology report available. Patient reports that she was informed the FNA cytology was insufficient for diagnosis. Neck pressure symptoms. No H/O exposure to ionizing radiation to the head and neck. No H/O Thyroid cancer in one or more first degree relatives. No H/O Prior Thyroid surgery. No Review of Systems: GENERAL: Weight: increased, about 23 lbs since November 2023. ENT: dysphagia about 2 weeks ago. Thyroid Pain: no, Mass Effect: No CV: no palpitations or chest pain. Resp: No cough, hemoptysis, asthma, recent chest infection, wheezing Gyne: Menopause Eyes: No, Dryness, Itching, tearing, and diplopia Skin: Negative M/S: muscle aches Neuro: negative PAST MEDICAL HISTORY No date: Atrial fibrillation (HCC) No date: Diverticulitis No date: GERD (gastroesophageal reflux disease) No date: Hiatal hernia No date: HLD (hyperlipidemia) No date: HTN (hypertension) No date: Obesity, unspecified No date: Other and unspecified hyperlipidemia No date: Scoliosis No date: Spinal stenosis, unspecified region other than cervical No date: UTI (urinary tract infection) Social History: Social History Tobacco Use Smoking status: Never Smokeless tobacco: Never Vaping Use Vaping status: Never Used Substance Use Topics Alcohol use: Yes Comment: socially- couple times per year Drug use: Never FAMILY HISTORY Problem Relation Age of Onset Cancer Father prostate Heart Father chf Lipids Father Hypertension Father Prostate Cancer Father 70 Cataract Mother Hypertension Mother Lipids Mother Glaucoma Sister Rectal Cancer Sister 71 Stroke Sister 28 Cataract Brother Breast Cancer Paternal Aunt 60 - 69 Macular Degen Other Difficulty with anesthesia No Family History Blindness No Family History Amblyopia No Family History Strabismus No Family History Family Hx: Father and sister took thyroid medication. Current Outpatient Medications Medication Sig ciprofloxacin HCl (CIPRO) 500 mg tablet Take 500 mg by mouth every 12 hours. metroNIDAZOLE (FLAGYL) 500 mg tablet Take 500 mg by mouth every 8 hours. anastrozole (ARIMIDEX) 1 mg tablet Take 1 tablet by mouth once daily. abemaciclib (VERZENIO) 150 mg tablet Take 1 tablet (150 mg) by mouth two times a day. NAPROXEN ORAL Take by mouth two times a day. cholecalciferol (VITAMIN D-3) 5,000 unit tab Take 5,000 Units by mouth once daily. spironolactone (ALDACTONE) 25 mg tablet Take 1 tablet by mouth every afternoon. atorvastatin (LIPITOR) 20 mg tablet Take 1 tablet by mouth once daily. (Patient taking differently: Take 40 mg by mouth once daily.) losartan (COZAAR) 50 mg tablet Take 50 mg by mouth once daily. esomeprazole magnesium (NEXIUM ORAL) Take 20 mg by mouth once daily. furosemide (LASIX) 20 mg tablet Take 20 mg by mouth once daily. MULTIVITAMIN ORAL Take 1 Dose by mouth once daily. potassium chloride (K-TAB) 10 mEq tablet Take 10 mEq by mouth once daily. METOPROLOL 100 MG TAB Take 50 mg by mouth two times a day. No current facility-administered medications for this visit. Physical Exam BP 120/56 Pulse 72 Wt 128.1 kg (282 lb 6.6 oz) LMP 08/26/2006 (Approximate) BMI 54.87 kg/m Body mass index is 54.87 kg/m . APPEARANCE: Well appearing, alert, in no acute distress, well-hydrated, well nourished. EYES no thyroid eye signs THYROID No goiter NEURO Awake, alert and oriented x 3 and No involuntary motions. SKIN color, texture, turgor normal, no rashes or lesions Impression and Recommendations: (E04.2) Multiple thyroid nodules (primary encounter diagnosis) Comment: incidental finding on CT during breast cancer work up. Low risk history for thyroid CA Plan: THYROID STIMULATING HORMONE, US THYROID Further management will be determined after results are available. Follow up TBD Sandy Mcgregor MD, PhD documented in this encounter [facility] 04-30-2024 Telephone encounter Note Emma, with [facility] [facility], called requesting Dr. Norman byrdend his last office note to include that Minal has been diagnosed with lymphedema in order for her insurance to cover the compression sleeve. Please fax the addended office note to [phone] ATTN: Emma. Thanks Windy Jiang RN [facility] 04-22-2024 History of Presen t illness Narrative Images from the original note were not included. [facility] received prescription(s) for Verzenio from Dr. Neri's office. Benefits investigation was conducted, indicating that a prior authorization is required by patient's insurance plan with [employer]. Encounter will be updated once prior authorization has been submitted by [facility]. [facility] P: / F: documented in this encounter [facility] 04-22-2024 Note [facility] 04-22-2024 Note [facility] 04-22-2024 Note [facility] 04-22-2024 Note [facility] 04-22-2024 Note [facility] 04-21-2024 Telephone encounter Note Call placed to pt to check status post XRT. Pt states her skin is doing very well. She has dryness, but not anymore than her other skin. She denies redness, open areas or peeling. She does continue to have some fatigue. Other than that, pt is doing well. She had infusion and a visit with Dr Neri today who she follows closely. She will see our office in 6 months and call with questions in between. Isadora Wright RN [facility] 04-21-2024 Miscellaneous Notes Call placed to pt to check status post XRT. Pt states her skin is doing very well. She has dryness, but not anymore than her other skin. She denies redness, open areas or peeling. She does continue to have some fatigue. Other than that, pt is doing well. She had infusion and a visit with Dr Neri today who she follows closely. She will see our office in 6 months and call with questions in between. Isadora Wright, RN documented in this encounter [facility] 04-21-2024 Instructions Yvonne Marsh LPN - 04/21/2024 10:16 AM EDT Reschedule bone density from [facility] to [facility] Schedule chemo teach with Nia for Verzenio Follow up with Dr. Neri in 4 weeks Labs prior documented in this encounter [facility] 04-21-2024 Note [facility] 04-21-2024 History of Presen t illness Narrative PATIENT NAME: Minal Fentontrevonlucie CLINIC NO.: [id number] ATTENDING PHYSICIAN: Mitch Neri MD DATE OF SERVICE: April 21, 2024 Some of the elements of this note have been copied from my previous progress note dated 03/03/2024. All the information has been reviewed carefully. Dear Dr. Mendoza Yang here is an update on a follow up visit on female Minal Caputo at the clinic April 21, 2024 Diagnosis: L Breast Cancer: pT3,N3,M0, Grade 2 ILC, 6.3 cm, LVI present, Margins Negative, ER 80%, KS 5% and Her-2 IHC-0 Germline testing 07/2023: [...] intussusception technique, September 04, 2023 DDAC started 10/22/2023, second cycle 11/05/2023 both complicated by neutropenic fever. After discussion switched to weekly taxol 12/03/2023, requested time off due to fungal skin infection and resumed 12/31/2023-blood course was again complicated by diverticulitis. After lengthy discussion with the patient elected to stop further chemo. Only received 2 weeks of Taxol in total. PE 11/05/2023 on Eliquis 5. Radiation L chest wall and regional nodes 03/03/2024-03/24/2024 6. Zometa q 6 months started 04/21/2024 7. Arimdex 04/2024 8. Verzinio 04/2024 HPI: Minal Caputo is a 68 year [...] grade 1 invasive lobular carcinoma ER 80%, KS 5% and HER2/akash with IHC 0. A [...] to transfer her care to the [facility] and underwent a L breast mastectomy [...] skin without any abnormalities. Interval History: She still gets tired but has been eating better and also scheduled to start PT in 2-3 weeks. She did see lymphedema clinic and they will send her an arm sleeve as well. Denies any rashes and also denies any BAHENA and or abdominal pain. Still with some neuropathy in the legs as well. PAST MEDICAL HISTORY No date: Atrial fibrillation (HCC) No date: Diverticulitis No date: GERD (gastroesophageal reflux disease) No date: Hiatal hernia No date: HLD (hyperlipidemia) No date: HTN (hypertension) No date: Obesity, unspecified No date: Other and unspecified hyperlipidemia No date: Scoliosis No date: Spinal stenosis, unspecified region other than cervical No date: UTI (urinary tract infection) Social History Tobacco Use Smoking status: Never Smokeless tobacco: Never Vaping Use Vaping status: Never Used Substance Use Topics Alcohol use: Yes Comment: socially- couple times per year Drug use: Never FAMILY HISTORY Problem Relation Age of Onset Cancer Father prostate Heart Father chf Lipids Father Hypertension Father Prostate Cancer Father 70 Cataract Mother Hypertension Mother Lipids Mother Glaucoma Sister Rectal Cancer Sister 71 Stroke Sister 28 Cataract Brother Breast Cancer Paternal Aunt 60 - 69 Macular Degen Other Difficulty with anesthesia No Family History Blindness No Family History Amblyopia No Family History Strabismus No Family History Past medical, social and [...] of hands/feet. No weakness. PHYSICAL EXAMINATION: BP 141/64 Pulse 78 Temp (Src) 97.7 (Temporal Artery) Resp 18 Ht 5' .157 (1.53m) Wt 279 lb 3.4 oz (126.7kg) SpO2 95% LMP 08/26/2006 BMI 54.24 kg/(m^2). Wt 125.2 kg (276 lb 0.3 [...] : Deferred LABS: Glucose (mg/dL) Date Value 03/03/2024 113 04/02/2018 129 Potassium (mmol/L) Date Value 03/03/2024 4.9 04/02/2018 4.1 Sodium (mmol/L) Date Value 03/03/2024 146 04/02/2018 136 Chloride (mmol/L) Date Value 03/03/2024 107 04/02/2018 100 CO2 (mmol/L) Date Value 03/03/2024 27 04/02/2018 25 Creatinine (mg/dL) Date Value 03/03/2024 1.25 04/02/2018 0.83 BUN (mg/dL) Date Value 03/03/2024 19 04/02/2018 16 Anion Gap (mmol/L) Date Value 03/03/2024 12 04/02/2018 11 Calcium (mg/dL) Date Value 04/02/2018 8.2 Calcium, Total (mg/dL) Date Value 03/03/2024 10.2 Protein, Total (g/dL) Date Value 03/03/2024 6.9 03/19/2018 6.8 Albumin (g/dL) Date Value 03/03/2024 4.4 03/19/2018 4.2 Bilirubin, Total (mg/dL) Date Value 03/03/2024 0.3 03/19/2018 0.5 Alkaline Phosphatase (U/L) Date Value 03/03/2024 113 03/19/2018 107 AST (U/L) Date Value 03/03/2024 24 03/19/2018 27 ALT (U/L) Date Value 03/03/2024 35 03/19/2018 38 WBC Date Value Ref Range Status 03/03/2024 7.70 3.70 - 11.00 k/uL Final RBC Date Value Ref Range Status 03/03/2024 4.19 3.90 - 5.20 m/uL Final Hemoglobin Date Value Ref Range Status 03/03/2024 13.5 11.5 - 15.5 g/dL Final Hematocrit Date Value Ref Range Status 03/03/2024 41.7 36.0 - 46.0 % Final MCV Date Value Ref Range Status 03/03/2024 99.5 80.0 - 100.0 fL Final MCH Date Value Ref Range Status 03/03/2024 32.2 26.0 - 34.0 pg Final MCHC Date Value Ref Range Status 03/03/2024 32.4 30.5 - 36.0 g/dL Final RDW-CV Date Value Ref Range Status 03/03/2024 13.0 11.5 - 15.0 % Final Platelet Count Date Value Ref Range Status 03/03/2024 291 150 - 400 k/uL Final MPV Date Value Ref Range Status 03/03/2024 9.6 9.0 - 12.7 fL Final Abs Neut Date Value Ref Range Status 03/03/2024 4.51 1.45 - 7.50 k/uL Final Lymphocytes % Date Value Ref Range Status 03/03/2024 25.1 % Final Abs Lymph Date Value Ref Range Status 03/03/2024 1.93 1.00 - 4.00 k/uL Final Monocytes % Date Value Ref Range Status 03/03/2024 8.4 % Final Abs [place] Date Value Ref Range Status 03/03/2024 0.65 <0.87 k/uL Final Eosin% Date Value Ref Range Status 11/05/2023 0.9 % Final Abs Eosin Date Value Ref Range Status 03/03/2024 0.55 (H) <0.46 k/uL Final Basophils % Date Value Ref Range Status 03/03/2024 0.5 % Final Abs Baso Date Value Ref Range Status 03/03/2024 0.04 <0.11 k/uL Final PATH: L Breast Lumpectomy and SLN Biopsy 07/2023: INVASIVE CARCINOMA OF THE BREAST: Resection 8th Edition - Protocol posted: 11/14/2022 INVASIVE CARCINOMA OF THE BREAST: EXCISION - All Specimens SPECIMEN Procedure Total mastectomy Specimen Laterality Left TUMOR Tumor Site Lower outer quadrant to central Histologic Type Invasive lobular carcinoma Histologic Grade ([place] Histologic Score) Glandular (Acinar) / Tubular Differentiation [...] Examined (sentinel and non-sentinel) 4 Number of Kirby Nodes Examined 4 pTNM CLASSIFICATION (AJCC 8th [...] invasive lobular carcinoma, grade 2, ER 80%, KS 5% and HER2/akash negative, IHC 0, cancer [...] also discussed the role of zoledronic acid. She started DDAC 10/22/2023 and has had a very hard time with both cycles and is very apprehensive about continuing chemo. I did discuss her hig risk disease and at this time will stop AC and she has agreed to transition to weekly Taxol, which she started 12/02/2022 but she has requested 2 weeks off due to skin fungal infections. I did discuss the rational for dose intensity in managing curative breast cancer to her, She resumed weekly paclitaxel again on 12/31/2023. She was again seen in the emergency room with acute diverticulitis shortly after the chemotherapy. We discussed her course with chemotherapy at great length. She has complications after each cycle of chemotherapy and therefore she has been receiving the chemotherapy rather inconsistently. Certainly she is at high risk with a number of nodes however, she also has invasive lobular carcinoma as well. With her poor tolerance overall of chemotherapy and the fact that the chemotherapy cannot be given on routine cycles we discussed and both agreed to stopping further chemotherapy and her last cycle of weekly Taxol which she only received 2 doses was 12/31/2023. She completed L breast and regional radiation 03/24/2024 Discussed adjuvant hormonal therapy with AI and also Trang in great length discussed the adverse events associated with an aromatase inhibitor including. Bone loss, fracture, vaginal dryness as well as arthralgia. We also discussed the side effects associated with Verzenio including diarrhea and leukopenia and a risk of thrombosis. All her questions were answered to her satisfaction. Will arrange for Verzenio teach. Will also make sure that she gets her baseline bone density which she has not obtained yet. Will try to schedule this at [facility] for her Will schedule patient for a bone density study. Groin abscess resolved on Cipro, which of course was completed Acute diverticulitis-patient has had diverticulitis in the past improved on antibiotics. 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 PE Completed 3 months of NOAC and was felt to be provoked. CTA 01/2024 was negative Monitor Renal Function-stable Follow-up on LFTs-Labs pending today Continue PT for lymphedema Start Zometa q 6 months 04/21/2024 See back in 4 weeks for follow up and arrange verklebernio teach as well. Thank you for the kind referral. If there are any questions and or concerns please do not hesitate to contact me at [phone]. Mitch Neri MD Hematology/Medical Oncology [facility] Francine Katja spent a total of 30 minutes on the date of the service which included preparing to see the patient, [id number] patient care, completing clinical documentation, obtaining and/or reviewing separately obtained history, performing a medically appropriate examination, and counseling and educating the patient/family/caregiver. CC: Sunny Jenkins MD documented in this encounter [facility] 04-21-2024 Note HNO ID: [id number] Author: RANDELL BURNETT MA Service: ? Author Type: Repairer [employer] Type: Progress Notes Filed: 04/21/2024 10:20 Note Text: [facility] 03-24-2024 History of Presen t illness Narrative [facility] Radiation Oncology Department RADIATION ONCOLOGY - COMPLETION NOTE PATIENT: MINAL CAPUTO: 1955 DATES OF TREATMENT: 03/03/2024 to 03/24/24 DIAGNOSIS: Ms. Caputo is a 68-year-old woman with locally advanced breast cancer, [id number], arising from the left breast status post left mastectomy and axillary lymph node dissection on 07/29/2023 and 09/04/[address] Castillo. Pathology revealed a 6.3 cm intermediate grade primary tumor as well as 25+ positive lymph nodes in the axilla with extranodal extension. Started postoperative systemic therapy under the care of Dr. Neri however was discontinued after his second cycle due to poor tolerance of multiple hospitalizations. AREA TREATED: Left Chestwall and Regional Lymph Nodes DELIVERED DOSE: 4,256 cGy in 16 fractions, 2 Harrell, VMAT IMRT, 6MV with daily CBCT guidance TOTAL: 4,256 delivered cGy in 16 fractions ELAPSED TIME: 21 days. CLINICAL SUMMARY: The patient tolerated course of postmastectomy radiation therapy well with mild treatment related fatigue and dermatitis as expected. No other significant issues. The patient was able to complete treatment as intended without break interruption or modification of prescription plan. The patient will be evaluated in 3-4 weeks for postradiation follow-up and follow with Dr. Neri as scheduled for continue evaluation and systemic therapy recommendations. Staff Physician Josef Austin M.D. / WST 2:56 AM Electronically Signed cc: Mitch Neri MD ([facility]) Sunny Jenkins MD [address] [facility] [id number] [address] documented in this encounter [facility] 03-24-2024 Note [facility] 03-23-2024 Note Date of Procedure 03/23/2024. Veterinary Epidemiologist Information Tourist Information Assistant: MARYANNE. Difficult saving and sending . Interpretation Right Eye Normal foveal contour. Left Eye Normal foveal contour. [facility] 03-23-2024 Note Date of Procedure 03/23/2024. Interval Change Right Eye Intial . Left Eye Intial . [facility] 03-23-2024 Note [facility] 03-23-2024 History of Presen t illness Narrative Combined Cataract both eyes - patient wishes to proceed with surgery both eyes Cataract Presurgical Documentation Cataract: Left eye (OS) then Right eye (OD) Aim: -2.25 both eyes Defers Toric + Family H/o Fuchs, protect endothelium Current Visual Acuity Right Eye Distance CC 20/30 Left Eye Distance CC 20/30 Best Corrected Vision Right Eye 20/25 Best Corrected Vision Left Eye 20/25 Glare Testing: Right Eye High 20/50 Left Eye High 20/60 Visual Function: Minal Caputo states that the decline in vision from the cataract impedes her abilities as listed in the HPI, as well as other activities of daily living. Minal Caputo has confirmed that she is no longer able to function adequately on a day-to-day basis because of her current visual condition. Further, it is my medical opinion that the cataract is the primary cause, or at least a significantly contributory cause of her visual dysfunction. With uncomplicated cataract surgery and lens implantation, it is my expectation that her visual function and quality of life will improve, significantly. The risks, benefits, alternatives, personnel and complications of cataract surgery with lens implantation were discussed with Minal Caputo in detail. she appeared to understand and asked that I proceed with plans for surgery. Johanne Fitzgerald MD March 23, 2024 documented in this encounter [facility] 03-19-2024 Note [facility] 03-19-2024 History of Presen t illness Narrative Radiation Oncology - On Treatment Review (OTR) Note PATIENT NAME: Minal Caputo PATIENT Josef Austin MD documented in this encounter [facility] 03-11-2024 Note [facility] 03-11-2024 History of Presen t illness Narrative RADIATION ONCOLOGY- ON TREATMENT REVIEW (OTR) NOTE PATIENT NAME: Minal Caputo PATIENT Signed by: Josef Austin MD documented in this encounter [facility] 03-11-2024 Nurse Note Status: Post-menopausal. [facility] 03-11-2024 Nurse Note Status: Post-menopausal. documented in this encounter [facility] 03-05-2024 Telephone encounter Note Patient called back and is scheduled per below [facility] 03-05-2024 Miscellaneous Notes Patient called back and is scheduled per below LVM/LMC to schedule FU in [address] Neri and Andres, and then a Bone Density Scan. Images from the original note were not included. Swapna: Please contact patient to schedule. Thank you! Nery Siemon documented in this encounter [facility] 03-04-2024 Telephone encounter Note Care Coordination Handoff Report [facility] Situation: Patient is transferring her full care from Dr. Neri in [place] to [place] Next Appointment scheduled: 04/21/24 Background: Diagnosis: Breast Cancer Treatment Regimen (refer to [place] Plan) currently receiving radiation therapy. Received 2 cycles of AC and 2 treatments of Taxol. She did not tolerate treatment very well and they were very inconsistent. Assessment: Ambulation: with walker Patient Education Completed: yes Recommendations: Special Considerations: pt's last treatment was 12/31/23 and currently receiving radiation. Pt is considered high risk for recurrence. CC name/pager/phone number: Yvonne [phone] Yvonne Baumann RN [facility] Work Phone: 03-04-2024 Miscellaneous Notes Care Coordination Handoff Report [facility] Situation: Patient is transferring her full care from Dr. Neri in [place] to [place] Next Appointment scheduled: 04/21/24 Background: Diagnosis: Breast Cancer Treatment Regimen (refer to [place] Plan) currently receiving radiation therapy. Received 2 cycles of AC and 2 treatments of Taxol. She did not tolerate treatment very well and they were very inconsistent. Assessment: Ambulation: with walker Patient Education Completed: yes Recommendations: Special Considerations: pt's last treatment was 12/31/23 and currently receiving radiation. Pt is considered high risk for recurrence. [facility] name/pager/phone number: Yvonne [phone] Yvonne Baumann RN documented in this encounter [facility] 03-04-2024 Telephone encounter Note LVM/LMC to schedule FU in [address] Neri and Andres, and then a Bone Density Scan. [facility] 03-03-2024 Telephone encounter Note Images from the original note were not included. [place]: Please contact patient to schedule. Thank you! Nery Simeon [facility] 03-03-2024 Instructions Mitch Neri MD - 03/03/2024 4:30 PM EDT BONE MINERAL DENSITY PATIENT INSTRUCTIONS ========= Bone mineral density testing measures the amount of calcium in certain parts of your bones. This information determines how strong your bones are. The test is used to detect osteoporosis, a disease in which the bone's mineral content and density are low, increasing a person's risk of fractures. The lumbar spine (lower back) and the hip are the skeletal sites usually examined. For the test, remember that: 1. You cannot take this test if you are . 2. Eat a normal diet on the day of the test. 3. Take your medications as you normally would. 4. DO NOT take calcium supplements (such as Tums) for 24 hours before the test. 5. On the day of the test, leave valuables (jewelry or credit cards) at home. 6. The test should be performed prior to oral, rectal or IV contrast studies, or at least 7 days after any of these studies. For the test, you may be asked to wear a hospital gown. You will lie on your back, on a padded table, in a comfortable position. Generally, you can resume your usual activities immediately. documented in this encounter [facility] 03-03-2024 Note [facility] 03-03-2024 History of Presen t illness Narrative [id number] ATTENDING PHYSICIAN: Mitch Neri MD DATE OF SERVICE: March 03, 2024 Some of the elements of this note have been copied from my previous progress note dated 01/21/2024. All the information has been reviewed carefully. Dear Dr. Mendoza Yang here is an update on a follow up visit on female Minal Caputo at the clinic March 03, 2024 Diagnosis: L Breast Cancer: pT3,N3,M0, Grade 2 ILC, 6.3 cm, LVI present, Margins Negative, ER 80%, KS 5% and Her-2 IHC-0 Germline testing 07/2023: [...] intussusception technique, September 04, 2023 DDAC started 10/22/2023, second cycle 11/05/2023 both complicated by neutropenic fever. After discussion switched to weekly taxol 12/03/2023, requested erin eoff due to fungal skin infection and resumed 12/31/2023-blood course was again complicated by diverticulitis. After lengthy discussion with the patient elected to stop further chemo. PE 11/05/2023 on Eliquis 5. Radiation HPI: Minal Caputo is a 68 year [...] grade 1 invasive lobular carcinoma ER 80%, KS 5% and HER2/akash with IHC 0. A [...] to transfer her care to the [facility] and underwent a L breast mastectomy [...] breast skin without any abnormalities. Interval History: Overall she states that she is feeling better. She has regained strength. She just darted the radiation therapy today. No further episodes of abdominal pain or diverticulitis. PAST MEDICAL HISTORY Diagnosis Date Atrial fibrillation (HCC) Diverticulitis GERD (gastroesophageal reflux disease) Hiatal hernia HLD (hyperlipidemia) HTN (hypertension) Obesity, unspecified Other and unspecified hyperlipidemia Scoliosis Spinal stenosis, unspecified region other than cervical UTI (urinary tract infection) Social History Tobacco Use Smoking status: Never [...] of hands/feet. No weakness. PHYSICAL EXAMINATION: BP 157/83 Pulse 71 Temp (Src) 98 (Temporal) Resp 16 Ht 5' .157 (1.53m) Wt 272 lb 0.8 oz (123.4kg) SpO2 96% LMP 08/26/2006 BMI 52.85 kg/(m^2). Wt 125.2 kg (276 lb 0.3 [...] : Deferred LABS: Glucose (mg/dL) Date Value 01/21/2024 154 04/02/2018 129 Potassium (mmol/L) Date Value 01/21/2024 4.2 04/02/2018 4.1 Sodium (mmol/L) Date Value 01/21/2024 140 04/02/2018 136 Chloride (mmol/L) Date Value 01/21/2024 104 04/02/2018 100 CO2 (mmol/L) Date Value 01/21/2024 25 04/02/2018 25 Creatinine (mg/dL) Date Value 01/21/2024 1.13 04/02/2018 0.83 BUN (mg/dL) Date Value 01/21/2024 17 04/02/2018 16 Anion Gap (mmol/L) Date Value 01/21/2024 11 04/02/2018 11 Calcium (mg/dL) Date Value 04/02/2018 8.2 Calcium, Total (mg/dL) Date Value 01/21/2024 10.2 Protein, Total (g/dL) Date Value 01/21/2024 7.1 03/19/2018 6.8 Albumin (g/dL) Date Value 01/21/2024 4.3 03/19/2018 4.2 Bilirubin, Total (mg/dL) Date Value 01/21/2024 0.4 03/19/2018 0.5 Alkaline Phosphatase (U/L) Date Value 01/21/2024 97 03/19/2018 107 AST (U/L) Date Value 01/21/2024 47 03/19/2018 27 ALT (U/L) Date Value 01/21/2024 83 03/19/2018 38 WBC Date Value Ref Range Status 03/03/2024 7.70 3.70 - 11.00 k/uL Final RBC Date Value Ref Range Status 03/03/2024 4.19 3.90 - 5.20 m/uL Final Hemoglobin Date Value Ref Range Status 03/03/2024 13.5 11.5 - 15.5 g/dL Final Hematocrit Date Value Ref Range Status 03/03/2024 41.7 36.0 - 46.0 % Final MCV Date Value Ref Range Status 03/03/2024 99.5 80.0 - 100.0 fL Final MCH Date Value Ref Range Status 03/03/2024 32.2 26.0 - 34.0 pg Final MCHC Date Value Ref Range Status 03/03/2024 32.4 30.5 - 36.0 g/dL Final RDW-CV Date Value Ref Range Status 03/03/2024 13.0 11.5 - 15.0 % Final Platelet Count Date Value Ref Range Status 03/03/2024 291 150 - 400 k/uL Final MPV Date Value Ref Range Status 03/03/2024 9.6 9.0 - 12.7 fL Final Abs Neut Date Value Ref Range Status 03/03/2024 4.51 1.45 - 7.50 k/uL Final Lymphocytes % Date Value Ref Range Status 03/03/2024 25.1 % Final Abs Lymph Date Value Ref Range Status 03/03/2024 1.93 1.00 - 4.00 k/uL Final Monocytes % Date Value Ref Range Status 03/03/2024 8.4 % Final Abs [place] Date Value Ref Range Status 03/03/2024 0.65 <0.87 k/uL Final Eosin% Date Value Ref Range Status 11/05/2023 0.9 % Final Abs Eosin Date Value Ref Range Status 03/03/2024 0.55 (H) <0.46 k/uL Final Basophils % Date Value Ref Range Status 03/03/2024 0.5 % Final Abs Baso Date Value Ref Range Status 03/03/2024 0.04 <0.11 k/uL Final PATH: L Breast Lumpectomy and SLN Biopsy 07/2023: INVASIVE CARCINOMA OF THE BREAST: Resection 8th Edition - Protocol posted: 11/14/2022 INVASIVE CARCINOMA OF THE BREAST: EXCISION - All Specimens SPECIMEN Procedure Total mastectomy Specimen Laterality Left TUMOR Tumor Site Lower outer quadrant to central Histologic Type Invasive lobular carcinoma Histologic Grade ([place] Histologic Score) Glandular (Acinar) / Tubular Differentiation [...] Examined (sentinel and non-sentinel) 4 Number of Kirby Nodes Examined 4 pTNM CLASSIFICATION (AJCC 8th [...] invasive lobular carcinoma, grade 2, ER 80%, KS 5% and HER2/akash negative, IHC 0, cancer [...] also discussed the role of zoledronic acid. She started DDAC 10/22/2023 and has had a very hard time with both cycles and is very apprehensive about continuing chemo. I did discuss her hig risk disease and at this time will stop AC and she has agreed to transition to weekly Taxol, which she started 12/02/2022 but she has requested 2 weeks off due to skin fungal infections. I did discuss the rational for dose intensity in managing curative breast cancer to her, She resumed weekly paclitaxel again on 12/31/2023. She was again seen in the emergency room with acute diverticulitis shortly after the chemotherapy. We discussed her course with chemotherapy at great length. She has complications after each cycle of chemotherapy and therefore she has been receiving the chemotherapy rather inconsistently. Certainly she is at high risk with a number of nodes however, she also has invasive lobular carcinoma as well. With her poor tolerance overall of chemotherapy and the fact that the chemotherapy cannot be given on routine cycles we discussed and both agreed to stopping further chemotherapy, proceeding with radiation therapy. She has started radiation therapy today March 03, 2024 and has elected to follow at [facility] for radiation rather than closer to home. She is much more comfortable with this decision. We did discuss the role of bisphosphonates, aromatase inhibitors as well as CDK 4 6 inhibitors after completion of radiation therapy. Will schedule patient for a bone density study. Groin abscess resolved on Cipro Acute diverticulitis-patient has had diverticulitis in the past improved on antibiotics. 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 PE continue NOAC Monitor Renal Function-stable Follow-up on LFTs-Labs pending today Has seen PT for lymphedema See patient back in clinic after completion of radiation. Thank you for the kind referral. If there are any questions and or concerns please do not hesitate to contact me at [phone]. Mitch Neri MD Hematology/Medical Oncology [facility] I spent a total of 30 minutes on the date of the service which included preparing to see the patient, [id number] patient care, completing clinical documentation, obtaining and/or reviewing separately obtained history, performing a medically appropriate examination, and counseling and educating the patient/family/caregiver. CC: Sunny Jenkins MD documented in this encounter [facility] 02-13-2024 Telephone encounter Note Sent information over for emerald. Will call to check on it. [facility] 02-13-2024 Miscellaneous Notes Sent information over for emerald. Will call to check on it. Minal called stating she and Dr. Austin discussed referral to the lymphedema clinic. She would like the appointment scheduled at [facility]. She provided their fax [phone]. Dr. Austin order is pending your approval. Yvonne will you please schedule per patient request. She does prefer a.m. appointments but will take any time that is offered. Thanks Windy Jiang RN documented in this encounter [facility] 02-13-2024 Telephone encounter Note Minal called stating she and Dr. Austin discussed referral to the lymphedema clinic. She would like the appointment scheduled at [facility]. She provided their fax [phone]. Dr. Austin order is pending your approval. Yvonne will you please schedule per patient request. She does prefer a.m. appointments but will take any time that is offered. Thanks Windy Jiang RN [facility] 02-07-2024 Note [facility] 02-07-2024 History of Presen t illness Narrative Images from the original note were not included. Radiation Oncology - New Patient/Consult Note PATIENT NAME: Minal Caputo PATIENT Signed: Josef Austin MD I spent a total of 60 minutes on the date of the service which included preparing to see the patient, [id number] patient care, and counseling and educating the patient/family/caregiver. This document has been created with the use of voice recognition technology. It may contain inaccuracies, misspellings, inaccurate syntax or inappropriate word context that are a result of the inadequacies/shortcomings of said technology/software. documented in this encounter [facility] 02-07-2024 Nurse Note Radiation Therapy - Patient Education Note PATIENT NAME: Minal Caputo PATIENT February 07, 2024 [facility] FACILITY/LOCATION: [facility] READINESS TO LEARN Cognitive Ability: Alert and oriented Motivation to learn: Interested Family Support: Unable to assess - Family not present Instruction provide to: Patient Patient learns best by: Multiple Methods Factors effecting learning: None Physical limitations effecting learning: None LEARNING RESPONSE Diagnosis: Pt simulated today for radiation therapy to left chest wall. Education Topic/Teaching Points: Radiation therapy, Side effects, and OTV: Method of instruction: Written instruction/Handouts Verbal instruction Patient /Family response: Patient verbalized understanding of radiation treatments, side effects, OTV, and transportation. Follow-up plan: Patient instructed to call with any further issues Recommend - Recommend continued instruction and follow up as directed Contact information given. Supplemental material: Informational handouts on Breast packet, Fatigue, and Skin changes. Referral (recommendation): None, Pt denied need for social work, van service, and accountancy professor. Patient has an Onbody or Implanted device: No Signed by: Windy Jiang RN [facility] 02-07-2024 Nurse Note Radiation Therapy - Patient Education Note PATIENT NAME: Minal Caputo PATIENT February 07, 2024 [facility] FACILITY/LOCATION: [facility] READINESS TO LEARN Cognitive Ability: Alert and oriented Motivation to learn: Interested Family Support: Unable to assess - Family not present Instruction provide to: Patient Patient learns best by: Multiple Methods Factors effecting learning: None Physical limitations effecting learning: None LEARNING RESPONSE Diagnosis: Pt simulated today for radiation therapy to left chest wall. Education Topic/Teaching Points: Radiation therapy, Side effects, and OTV: Method of instruction: Written instruction/Handouts Verbal instruction Patient /Family response: Patient verbalized understanding of radiation treatments, side effects, OTV, and transportation. Follow-up plan: Patient instructed to call with any further issues Recommend - Recommend continued instruction and follow up as directed Contact information given. Supplemental material: Informational handouts on Breast packet, Fatigue, and Skin changes. Referral (recommendation): None, Pt denied need for social work, van service, and accountancy professor. Patient has an Onbody or Implanted device: No Signed by: Windy Jiang RN documented in this encounter [facility] 02-07-2024 Nurse Note Pacemaker/Defibrillator?N Previous Cancer(s)?N Previous Radiation?N Lupus/Scleroderma?N On body monitoring device?N [facility] 02-07-2024 Nurse Note Pacemaker/Defibrillator?N Previous Cancer(s)?N Previous Radiation?N Lupus/Scleroderma?N On body monitoring device?N documented in this encounter [facility] 02-07-2024 History of Presen t illness Narrative MINAL CAPUTO [id number] 02/07/2024 [facility] Radiation Oncology Department SIMULATION NOTE DATE OF SIMULATION: 02/07/2024 THERAPIST: Vonda Hewitt MACHINE: [employer]us DIAGNOSIS: Malignant neoplasm of [id number] AREA: left cw CONTRAST: None Consent in Epic: Yes PATIENT POSITION: Supine. FIXATION DEVICE: In order to achieve accurate and reproducible treatments, the patient is immobilized with the orfit AIO system and RPM. Custom vacbag used. A time-out was conducted and recorded by the therapist. CT scan was completed for target localization and planning. Field arrangement will be determined after plan has been completed. The patient is scheduled for a verification simulation on the treatment machine to ensure proper set-up and field arrangement is correct prior to the first treatment of primary and boost harrell if applicable. Patient education will be completed per nursing. Electronically Signed Josef Austin M.D. / TANYA 48:54 AM documented in this encounter [facility] 02-07-2024 History of Presen t illness Narrative MINAL CAPUTO [id number] 02/07/2024 [facility] Department of Radiation Oncology Treatment Planning Note For reasons stated in the consult note, Minal Caputo is a candidate for radiation therapy. Based on review and interpretation of the relevant diagnostic studies together with the exam findings, Minal Caputo was simulated on 02/07/2024 at which time the target volume and/or requisite harrell were delineated, as indicated in the simulation note, to be treated according to the prescription. An ITV was created from all the phases of respiratory motion captured by the 4DCT image sets. Motion management allowed for design of patient specific planning target volume and reduced the radiation exposure to normal tissues. The treatment target and organs at risk were contoured on the simulation scan. Special consideration to these and other structures was given in light of the potential for increased toxicities. After reviewing multiple treatment plans with dosimetry, the best plan was approved to deliver the prescribed course of radiation to the target area using inverse planning to allow for the best isodose distribution, treating to the 98.2% isodose line with 6MV and 2 harrell. Custom MLC asym jaws for IMRT were the treatment devices used to shape/modify the beams. Limiting dose to normal tissue was confirmed upon review of the calculated dose volume histogram. IMRT planning was used because it best met the dose/volume constraints for the organs at risk for this patient, better than what could be achieved using conventional or 3D planning. The specific dose requirements for the PTV, organs at risk and dose-volume histograms are contained in this treatment plan and/or elsewhere in the medical record. A completed summary of this plan dated 03/02/2024 incorporated herein by reference includes dose, beam arrangements, energy, blocking, isodose distribution, and/or ports and DVH. Electronically Signed Josef Austin M.D. 44:34 AM documented in this encounter [facility] 02-07-2024 Note [facility] 02-07-2024 Note [facility] 02-06-2024 Telephone encounter Note Nel: can you get records from Vannessa Turk please Thanks Yvonne Baumann RN [facility] Work Phone: 02-06-2024 Miscellaneous Notes Nel: can you get records from Vannessa Turk please Thanks Yvonne Baumann RN Patient is called and scheduled for tommorow. Can you please assist in getting Minal scheduled for radiation therapy here? See note from Yvonne Baumann below. Thanks, Yessi Caban Pt calls stating she is scheduled to start radiation at [facility], however she has changed her mind and would like to come here instead. Please schedule [facility] as back on 01/20 Dr Neri had recommended radiation therapy [facility]. Thanks Yvonne Baumann RN documented in this encounter [facility] 02-06-2024 Telephone encounter Note Patient is called and scheduled for tommorow. [facility] 02-06-2024 Telephone encounter Note Can you please assist in getting Minal scheduled for radiation therapy here? See note from Yvonne Baumann below. Yessi Chris [facility] 02-06-2024 Telephone encounter Note Pt calls stating she is scheduled to start radiation at [facility], however she has changed her mind and would like to come here instead. Please schedule [facility] as back on 01/20 Dr Neri had recommended radiation therapy [facility]. Thanks Yvonne Baumann RN [facility] 01-29-2024 Telephone encounter Note Called [facility] spoke with Lolis. Patient saw Dr Aponte on 01/27 and is scheduled for a SIM and follow up on 02/09. Vonda Ballesteros [facility] 01-29-[address] [facility] spoke with Lolis. Patient saw Dr Aponte on 01/27 and is scheduled for a SIM and follow up on 02/09. Vonda Ballesteros Records faxed to Vannessa Turk. Nel: Information ready for you. Vonda Ballesteros Radiation Referral [facility] Tobi Neumann/Alin: Can you please refer patient and follow up? Closer to home for patient. Thanks! Nery Simeon documented in this encounter [facility] 01-22-2024 Telephone encounter Note Pt notified Yvonne Baumann RN [facility] Work Phone: 01-22-2024 Miscellaneous Notes Pt notified Yvonne Baumann RN ----- Message from Mitch Neri MD sent at 01/21/2024 3:35 PM EDT ----- Please let her know that LFT's are better documented in this encounter [facility] 01-22-2024 Telephone encounter Note ----- Message from Mitch Neri MD sent at 01/21/2024 3:35 PM EDT ----- Please let her know that LFT's are better [facility] 01-22-2024 Telephone encounter Note Records faxed to Vannessa Turk. [facility] 01-22-2024 Telephone encounter Note Nel: Information ready for you. Vonda Ballesteros [facility] 01-21-2024 Telephone encounter Note Radiation Referral [facility] Tobi Neumann/Alin: Can you please refer patient and follow up? Closer to home for patient. Thanks! Nery Simeon [facility] 01-21-2024 Note [facility] 01-21-2024 History of Presen t illness Narrative [facility] [id number] ATTENDING PHYSICIAN: Mitch Neri MD DATE OF SERVICE: January 21, 2024 Some of the elements of this note have been copied from my previous progress note dated 01/07/2024. All the information has been reviewed carefully. Dear Dr. Mendoza Yang here is an update on a follow up visit on female Minal Caputo at the clinic January 21, 2024 Diagnosis: L Breast Cancer: pT3,N3,M0, Grade 2 ILC, 6.3 cm, LVI present, Margins Negative, ER 80%, KS 5% and Her-2 IHC-0 Germline testing 07/2023: [...] intussusception technique, September 04, 2023 DDAC started 10/22/2023, second cycle 11/05/2023 both complicated by neutropenic fever. After discussion switched to weekly taxol 12/03/2023, requested erin eoff due to fungal skin infection and resumed 12/31/2023-blood course was again complicated by diverticulitis. After lengthy discussion with the patient elected to stop further chemo. PE 11/05/2023 on Eliquis HPI: Minal Caputo is a 68 year [...] grade 1 invasive lobular carcinoma ER 80%, KS 5% and HER2/akash with IHC 0. A [...] to transfer her care to the [facility] and underwent a L breast mastectomy [...] skin without any abnormalities. Interval History: She was seen in the ER again had a CT scan which demonstrated acute diverticulitis. Patient was placed on antibiotics including Cipro which has helped substantially. She has no fevers no abdominal pain or diarrhea. The groin lesion which was bothering her has resolved as well. The rash also is improving. She also had elevated LFTs, repeat tests are currently pending. She denies any recent changes to medications. On her CT there was also some questionable abnormality in the right breast and she is scheduled for imaging this week of the right breast. PAST MEDICAL HISTORY Diagnosis Date Atrial fibrillation (HCC) Diverticulitis GERD (gastroesophageal reflux disease) Hiatal hernia HLD (hyperlipidemia) HTN (hypertension) Obesity, unspecified Other and unspecified hyperlipidemia Scoliosis Spinal stenosis, unspecified region other than cervical UTI (urinary tract infection) Social History Tobacco Use Smoking status: Never [...] of hands/feet. No weakness. PHYSICAL EXAMINATION: BP 131/75 Pulse 109 Temp (Src) 97.7 (Temporal) Resp 16 Ht 5' .157 (1.53m) Wt 263 lb 3.7 oz (119.4kg) SpO2 98% LMP 08/26/2006 BMI 51.14 kg/(m^2). Wt 125.2 kg (276 lb 0.3 [...] : Deferred LABS: Glucose (mg/dL) Date Value 01/14/2024 169 04/02/2018 129 Potassium (mmol/L) Date Value 01/14/2024 4.3 04/02/2018 4.1 Sodium (mmol/L) Date Value 01/14/2024 138 04/02/2018 136 Chloride (mmol/L) Date Value 01/14/2024 103 04/02/2018 100 CO2 (mmol/L) Date Value 01/14/2024 24 04/02/2018 25 Creatinine (mg/dL) Date Value 01/14/2024 1.15 04/02/2018 0.83 BUN (mg/dL) Date Value 01/14/2024 16 04/02/2018 16 Anion Gap (mmol/L) Date Value 01/14/2024 11 04/02/2018 11 Calcium (mg/dL) Date Value 04/02/2018 8.2 Calcium, Total (mg/dL) Date Value 01/14/2024 9.6 Protein, Total (g/dL) Date Value 01/14/2024 6.4 03/19/2018 6.8 Albumin (g/dL) Date Value 01/14/2024 3.9 03/19/2018 4.2 Bilirubin, Total (mg/dL) Date Value 01/14/2024 0.2 03/19/2018 0.5 Alkaline Phosphatase (U/L) Date Value 01/14/2024 91 03/19/2018 107 AST (U/L) Date Value 01/14/2024 118 03/19/2018 27 ALT (U/L) Date Value 01/14/2024 139 03/19/2018 38 WBC Date Value Ref Range Status 01/21/2024 6.38 3.70 - 11.00 k/uL Final RBC Date Value Ref Range Status 01/21/2024 3.89 (L) 3.90 - 5.20 m/uL Final Hemoglobin Date Value Ref Range Status 01/21/2024 12.5 11.5 - 15.5 g/dL Final Hematocrit Date Value Ref Range Status 01/21/2024 38.5 36.0 - 46.0 % Final MCV Date Value Ref Range Status 01/21/2024 99.0 80.0 - 100.0 fL Final MCH Date Value Ref Range Status 01/21/2024 32.1 26.0 - 34.0 pg Final MCHC Date Value Ref Range Status 01/21/2024 32.5 30.5 - 36.0 g/dL Final RDW-CV Date Value Ref Range Status 01/21/2024 18.0 (H) 11.5 - 15.0 % Final Platelet Count Date Value Ref Range Status 01/21/2024 449 (H) 150 - 400 k/uL Final MPV Date Value Ref Range Status 01/21/2024 9.0 9.0 - 12.7 fL Final Abs Neut Date Value Ref Range Status 01/21/2024 4.08 1.45 - 7.50 k/uL Final Lymphocytes % Date Value Ref Range Status 01/21/2024 24.9 % Final Abs Lymph Date Value Ref Range Status 01/21/2024 1.59 1.00 - 4.00 k/uL Final Monocytes % Date Value Ref Range Status 01/21/2024 8.2 % Final Abs [place] Date Value Ref Range Status 01/21/2024 0.52 <0.87 k/uL Final Eosin% Date Value Ref Range Status 11/05/2023 0.9 % Final Abs Eosin Date Value Ref Range Status 01/21/2024 0.13 <0.46 k/uL Final Basophils % Date Value Ref Range Status 01/21/2024 0.5 % Final Abs Baso Date Value Ref Range Status 01/21/2024 0.03 <0.11 k/uL Final PATH: L Breast Lumpectomy and SLN Biopsy 07/2023: INVASIVE CARCINOMA OF THE BREAST: Resection 8th Edition - Protocol posted: 11/14/2022 INVASIVE CARCINOMA OF THE BREAST: EXCISION - All Specimens SPECIMEN Procedure Total mastectomy Specimen Laterality Left TUMOR Tumor Site Lower outer quadrant to central Histologic Type Invasive lobular carcinoma Histologic Grade ([place] Histologic Score) Glandular (Acinar) / Tubular Differentiation [...] Examined (sentinel and non-sentinel) 4 Number of Kirby Nodes Examined 4 pTNM CLASSIFICATION (AJCC 8th [...] invasive lobular carcinoma, grade 2, ER 80%, KS 5% and HER2/akash negative, IHC 0, cancer [...] also discussed the role of zoledronic acid. She started DDAC 10/22/2023 and has had a very hard time with both cycles and is very apprehensive about continuing chemo. I did discuss her hig risk disease and at this time will stop AC and she has agreed to transition to weekly Taxol, which she started 12/02/2022 but she has requested 2 weeks off due to skin fungal infections. I did discuss the rational for dose intensity in managing curative breast cancer to her, She resumed weekly paclitaxel again on 12/31/2023. She was again seen in the emergency room with acute diverticulitis shortly after the chemotherapy. We discussed her course with chemotherapy at great length. She has complications after each cycle of chemotherapy and therefore she has been receiving the chemotherapy rather inconsistently. Certainly she is at high risk with a number of nodes however, she also has invasive lobular carcinoma as well. With her poor tolerance overall of chemotherapy and the fact that the chemotherapy cannot be given on routine cycles we discussed and both agreed to stopping further chemotherapy, proceeding with radiation therapy. She would like to receive radiation closer to home in [place]. After radiation therapy we will proceed with hormonal therapy with an aromatase inhibitor plus a CDK 4 6 inhibitor. Groin abscess resolved on Cipro Acute diverticulitis-patient has had diverticulitis in the past improved on antibiotics. Monitor grade 1 neurotoxicity. PE continue NOAC Monitor Renal Function-stable Follow-up on LFTs Suggested PT follow up for lymphedema as well. Refer to Rad onc and see back in 5 weeks Thank you for the kind referral. If there are any questions and or concerns please do not hesitate to contact me at [phone]. Mitch Neri MD Hematology/Medical Oncology [facility] I spent a total of 30 minutes on the date of the service which included preparing to see the patient, [id number] patient care, completing clinical documentation, obtaining and/or reviewing separately obtained history, performing a medically appropriate examination, and counseling and educating the patient/family/caregiver. CC: Sunny Jenkins MD documented in this encounter [facility] 01-15-2024 Telephone encounter Note Note scanned. [facility] 01-15-2024 Miscellaneous Notes Note scanned. Pt is scheduled to see Dr Prieto today at 1 for abscess in her groin. Nel: can you keep an eye on records please. Thanks Yvonne Baumann RN documented in this encounter [facility] 01-15-2024 Telephone encounter Note Pt is scheduled to see Dr Prieto today at 1 for abscess in her groin. Nel: can you keep an eye on records please. Thanks Yvonne Baumann RN [facility] Work Phone: 01-14-2024 Note [facility] 01-14-2024 History of Presen t illness Narrative PATIENT NAME: Minal Caputo [facility] NO.: [id number] ATTENDING PHYSICIAN: Mitch Neri MD DATE OF SERVICE: January 14, 2024 (Elements copied from Dr. Neri's note dated January 07, 2024, have been reviewed and updated where appropriate, and all reflect current assessment and medical decision making during today's encounter, January 14, 2024) CC: Follow up Diagnosis: L Breast Cancer: pT3,N3,M0, Grade 2 ILC, 6.3 cm, LVI present, Margins Negative, ER 80%, KS 5% and Her-2 IHC-0 Germline testing 07/2023: [...] intussusception technique, September 04, 2023 DDAC started 10/22/2023, second cycle 11/05/2023 both complicated by neutropenic fever. After discussion switched to weekly taxol 12/03/2023, requested time off due to fungal skin infection and resumed 12/31/2023, held again 01/07/2024 due to abscess in groin PE 11/05/2023 on Eliquis HPI: Minal Caputo is a 68 year [...] grade 1 invasive lobular carcinoma ER 80%, KS 5% and HER2/akash with IHC 0. A [...] to transfer her care to the [facility] and underwent a L breast mastectomy [...] skin without any abnormalities. Interval History: Minal returns today. She was in the ER on Saturday for Diverticulitis. She was having abdominal pain. No fevers. She is now on cipro and flagyl . She is now also on nystatin cream for her yeast infection which is improving. Her right groin abscess is less pink. It is not draining. She is scheduled to see surgery tomorrow for the groin abscess. Review of CT imaging from ER visit notes partial view of right breast mass. Patient unaware of any mass in her right breast. No images to review. PAST MEDICAL HISTORY Diagnosis Date Atrial fibrillation [...] or swelling, back pain, and muscle pain. SKIN:+right groin mass HEMATOLOGY/LYMPHOLOGY Negative for prolonged bleeding, bruising easily, and swollen nodes. NEURO: Negative for numbness or tingling of hands/feet. No weakness. PHYSICAL EXAMINATION: BP 128/71 Pulse 82 Temp (Src) 97.7 (Temporal) Resp 16 Ht 5' .157 (1.53m) Wt 265 lb 6.9 oz (120.4kg) SpO2 100% LMP 08/26/2006 BMI 51.57 kg/(m^2). ECOG PERFORMANCE STATUS: 0- Fully active, able to carry on all pre-disease performance w/o restriction. General: Alert and oriented, no distress, pleasant and cooperative. Heart: Regular, normal S1 and S2, no murmurs, rubs, or gallops Lungs: Clear to auscultation bilaterally Abdomen: Benign Extremities: Feet/ankles without edema, posterior tibial pulses full and symmetrical Skin: right inner thigh/groin area with opened areas x 2. Appear erythematous and open. Possibly draining. Breast; right breast without palpable mass LABS: Glucose (mg/dL) Date Value 01/14/2024 169 04/02/2018 129 Potassium (mmol/L) Date Value 01/14/2024 4.3 04/02/2018 4.1 Sodium (mmol/L) Date Value 01/14/2024 138 04/02/2018 136 Chloride (mmol/L) Date Value 01/14/2024 103 04/02/2018 100 CO2 (mmol/L) Date Value 01/14/2024 24 04/02/2018 25 Creatinine (mg/dL) Date Value 01/14/2024 1.15 04/02/2018 0.83 BUN (mg/dL) Date Value 01/14/2024 16 04/02/2018 16 Anion Gap (mmol/L) Date Value 01/14/2024 11 04/02/2018 11 Calcium (mg/dL) Date Value 04/02/2018 8.2 Calcium, Total (mg/dL) Date Value 01/14/2024 9.6 Protein, Total (g/dL) Date Value 01/14/2024 6.4 03/19/2018 6.8 Albumin (g/dL) Date Value 01/14/2024 3.9 03/19/2018 4.2 Bilirubin, Total (mg/dL) Date Value 01/14/2024 0.2 03/19/2018 0.5 Alkaline Phosphatase (U/L) Date Value 01/14/2024 91 03/19/2018 107 AST (U/L) Date Value 01/14/2024 118 03/19/2018 27 ALT (U/L) Date Value 01/14/2024 139 03/19/2018 38 WBC Date Value Ref Range Status 01/14/2024 4.39 3.70 - 11.00 k/uL Final RBC Date Value Ref Range Status 01/14/2024 3.61 (L) 3.90 - 5.20 m/uL Final Hemoglobin Date Value Ref Range Status 01/14/2024 11.4 (L) 11.5 - 15.5 g/dL Final Hematocrit Date Value Ref Range Status 01/14/2024 35.4 (L) 36.0 - 46.0 % Final MCV Date Value Ref Range Status 01/14/2024 98.1 80.0 - 100.0 fL Final MCH Date Value Ref Range Status 01/14/2024 31.6 26.0 - 34.0 pg Final MCHC Date Value Ref Range Status 01/14/2024 32.2 30.5 - 36.0 g/dL Final RDW-CV Date Value Ref Range Status 01/14/2024 17.6 (H) 11.5 - 15.0 % Final Platelet Count Date Value Ref Range Status 01/14/2024 397 150 - 400 k/uL Final MPV Date Value Ref Range Status 01/14/2024 9.4 9.0 - 12.7 fL Final Abs Neut Date Value Ref Range Status 01/14/2024 2.58 1.45 - 7.50 k/uL Final Lymphocytes % Date Value Ref Range Status 01/14/2024 28.9 % Final Abs Lymph Date Value Ref Range Status 01/14/2024 1.27 1.00 - 4.00 k/uL Final Monocytes % Date Value Ref Range Status 01/14/2024 8.0 % Final Abs [place] Date Value Ref Range Status 01/14/2024 0.35 <0.87 k/uL Final Eosin% Date Value Ref Range Status 11/05/2023 0.9 % Final Abs Eosin Date Value Ref Range Status 01/14/2024 0.13 <0.46 k/uL Final Basophils % Date Value Ref Range Status 01/14/2024 0.9 % Final Abs Baso Date Value Ref Range Status 01/14/2024 0.04 <0.11 k/uL Final PATH: L Breast [...] Examined (sentinel and non-sentinel) 4 Number of Kirby Nodes Examined 4 pTNM CLASSIFICATION (AJCC 8th [...] invasive lobular carcinoma, grade 2, ER 80%, KS 5% and HER2/akash negative, IHC 0, cancer [...] also discussed the role of zoledronic acid. She started DDAC 10/22/2023 and has had a very hard time with both cycles and is very apprehensive about continuing chemo. I did discuss her hig risk disease and at this time will stop AC and she has agreed to transition to weekly Taxol, which she started 12/02/2022 but she has requested 2 weeks off due to skin fungal infections. I did discuss the rational for dose intensity in managing curative breast cancer to her, She resumed weekly paclitaxel again on 12/31/2023. Now with possible abscess in the groin and diverticulitis. I recommended she see surgery tomorrow as planned for the abscess. Finish antibiotics for her diverticulitis. Return in 1 week to potentially resume treatment. Monitor grade 1 neurotoxicity. PE continue NOAC Monitor Renal Function-stable Ct abnormality in right breast--imaging from recent ER visit shows partial right breast lesion in the report. I do not have the images to review and no mass palpable. Will request images and order mammogram and ultrasound to further examine. Cathy Templeton PA-C CC: Sunny Jenkins MD I spent a total of 33 minutes on the date of the service which included preparing to see the patient, [id number] patient care, completing clinical documentation, obtaining and/or reviewing separately obtained history, performing a medically appropriate examination, counseling and educating the patient/family/caregiver, ordering medications, tests, or procedures, communicating with other HCPs (not separately reported), independently interpreting results (not separately reported), communicating results to the patient/family/caregiver, and care coordination (not separately reported). documented in this encounter [facility] 01-09-2024 Telephone encounter Note [facility]. Patient is scheduled to see Dr Prieto on 01/14 @ 1:30. Vonda Ballesteros [facility] 01-09-2024 Miscellaneous Notes Called [facility] office. Patient is scheduled to see Dr Prieto on 01/14 @ 1:30. Vonda Ballesteros Records faxed to Dr. Valenzuela. Nel: Information ready for you. Vonda Ballesteros Return for Dr. Chen Morris WALLACE skin abscess Nel/Alin: Can you please refer patient and follow up? She will be a new patient. Thanks! Nery Simeon documented in this encounter [facility] 01-08-2024 Telephone encounter Note Records faxed to Dr. Valenzuela. [facility] 01-08-2024 Telephone encounter Note Nel: Information ready for you. Vonda Ballesteros [facility] 01-07-2024 Telephone encounter Note Return for Dr. Chen Morris WALLACE skin abscess Nel/Alin: Can you please refer patient and follow up? She will be a new patient. Thanks! Nery Simeon [facility] 01-07-2024 Note [facility] 01-07-2024 History of Presen t illness Narrative PATIENT NAME: Minal Caputo CLINIC NO.: [id number] ATTENDING PHYSICIAN: Mitch Neri MD DATE OF SERVICE: January 07, 2024 Some of the elements of this note have been copied from my previous progress note dated 12/24/2023. All the information has been reviewed carefully. Dear Dr. Mendoza Yang here is an update on a follow up visit on female Minal Caputo at the clinic January 07, 2024 Diagnosis: L Breast Cancer: pT3,N3,M0, Grade 2 ILC, 6.3 cm, LVI present, Margins Negative, ER 80%, KS 5% and Her-2 IHC-0 Germline testing 07/2023: [...] intussusception technique, September 04, 2023 DDAC started 10/22/2023, second cycle 11/05/2023 both complicated by neutropenic fever. After discussion switched to weekly taxol 12/03/2023, requested erin eoff due to fungal skin infection and resumed 12/31/2023 PE 11/05/2023 on Eliquis HPI: Minal Caputo is a 68 year [...] grade 1 invasive lobular carcinoma ER 80%, KS 5% and HER2/akash with IHC 0. A [...] to transfer her care to the [facility] and underwent a L breast mastectomy [...] skin without any abnormalities. Interval History: She was switched to Keflex and nystatin for her abdominal skin infection. She also has an ongoing pain in her groin with some minimal drainage. She denies any fever chills night sweats. She also has grade 1 neurotoxicity in her lower extremities. PAST MEDICAL HISTORY Diagnosis Date Atrial fibrillation [...] of hands/feet. No weakness. PHYSICAL EXAMINATION: BP 116/44 Pulse 86 Temp (Src) 97.9 (Temporal) Resp 18 Wt 262 lb 12.6 oz (119.2kg) SpO2 97% LMP 08/26/2006 Wt 125.2 kg (276 lb 0.3 oz) [...] : Deferred LABS: Glucose (mg/dL) Date Value 12/31/2023 131 04/02/2018 129 Potassium (mmol/L) Date Value 12/31/2023 4.1 04/02/2018 4.1 Sodium (mmol/L) Date Value 12/31/2023 140 04/02/2018 136 Chloride (mmol/L) Date Value 12/31/2023 103 04/02/2018 100 CO2 (mmol/L) Date Value 12/31/2023 27 04/02/2018 25 Creatinine (mg/dL) Date Value 12/31/2023 1.16 04/02/2018 0.83 BUN (mg/dL) Date Value 12/31/2023 23 04/02/2018 16 Anion Gap (mmol/L) Date Value 12/31/2023 10 04/02/2018 11 Calcium (mg/dL) Date Value 04/02/2018 8.2 Calcium, Total (mg/dL) Date Value 12/31/2023 9.3 Protein, Total (g/dL) Date Value 12/31/2023 6.5 03/19/2018 6.8 Albumin (g/dL) Date Value 12/31/2023 4.1 03/19/2018 4.2 Bilirubin, Total (mg/dL) Date Value 12/31/2023 0.6 03/19/2018 0.5 Alkaline Phosphatase (U/L) Date Value 12/31/2023 99 03/19/2018 107 AST (U/L) Date Value 12/31/2023 22 03/19/2018 27 ALT (U/L) Date Value 12/31/2023 37 03/19/2018 38 WBC Date Value Ref Range Status 01/07/2024 7.52 3.70 - 11.00 k/uL Final RBC Date Value Ref Range Status 01/07/2024 3.45 (L) 3.90 - 5.20 m/uL Final Hemoglobin Date Value Ref Range Status 01/07/2024 11.0 (L) 11.5 - 15.5 g/dL Final Hematocrit Date Value Ref Range Status 01/07/2024 33.5 (L) 36.0 - 46.0 % Final MCV Date Value Ref Range Status 01/07/2024 97.1 80.0 - 100.0 fL Final MCH Date Value Ref Range Status 01/07/2024 31.9 26.0 - 34.0 pg Final MCHC Date Value Ref Range Status 01/07/2024 32.8 30.5 - 36.0 g/dL Final RDW-CV Date Value Ref Range Status 01/07/2024 18.1 (H) 11.5 - 15.0 % Final Platelet Count Date Value Ref Range Status 01/07/2024 320 150 - 400 k/uL Final MPV Date Value Ref Range Status 01/07/2024 9.8 9.0 - 12.7 fL Final Abs Neut Date Value Ref Range Status 01/07/2024 5.93 1.45 - 7.50 k/uL Final Lymphocytes % Date Value Ref Range Status 01/07/2024 13.0 % Final Abs Lymph Date Value Ref Range Status 01/07/2024 0.98 (L) 1.00 - 4.00 k/uL Final Monocytes % Date Value Ref Range Status 01/07/2024 4.1 % Final Abs [place] Date Value Ref Range Status 01/07/2024 0.31 <0.87 k/uL Final Eosin% Date Value Ref Range Status 11/05/2023 0.9 % Final Abs Eosin Date Value Ref Range Status 01/07/2024 0.24 <0.46 k/uL Final Basophils % Date Value Ref Range Status 01/07/2024 0.4 % Final Abs Baso Date Value Ref Range Status 01/07/2024 0.03 <0.11 k/uL Final PATH: L Breast Lumpectomy [...] Examined (sentinel and non-sentinel) 4 Number of Kirby Nodes Examined 4 pTNM CLASSIFICATION (AJCC 8th [...] invasive lobular carcinoma, grade 2, ER 80%, KS 5% and HER2/akash negative, IHC 0, cancer [...] also discussed the role of zoledronic acid. She started DDAC 10/22/2023 and has had a very hard time with both cycles and is very apprehensive about continuing chemo. I did discuss her hig risk disease and at this time will stop AC and she has agreed to transition to weekly Taxol, which she started 12/02/2022 but she has requested 2 weeks off due to skin fungal infections. I did discuss the rational for dose intensity in managing curative breast cancer to her, She resumed weekly paclitaxel again on 12/31/2023. Now with possible abscess in the groin. Will need to hold therapy. I will have her see general surgery right away to see if drainage is required. Monitor grade 1 neurotoxicity. PE continue NOAC Monitor Renal Function-stable See back next week for consideration of chemo. This has been rather difficult and I am not sure if she is going to be able to stay on schedule and complete her chemotherapy with the multitude of complication as she is currently experiencing. Thank you for the kind referral. If there are any questions and or concerns please do not hesitate to contact me at [phone]. Mitch Neri MD Hematology/Medical Oncology [facility] I spent a total of 30 minutes on the date of the service which included preparing to see the patient, [id number] patient care, completing clinical documentation, obtaining and/or reviewing separately obtained history, performing a medically appropriate examination, and counseling and educating the patient/family/caregiver. CC: Sunny Jenkins MD documented in this encounter [facility] 12-31-2023 History of Presen t illness Narrative Summary: IRB [id number] Informed Consent CASE [id number] ([id number]): Tissue and Body Fluid Analysis from Patients with Cancer and Other Risk- Associated Lesions Patient seen in clinic for informed consent of the above mentioned protocol. Patient agrees to participate in the above mentioned research study. The patient has signed a copy of the informed consent. Patient has contact information for the study team and Dr. Mitch Neri M.D. See consent note in Epic. Mary Mckay, MSN, RN Clinical Research Nurse documented in this encounter [facility] 12-31-2023 Note [facility] 12-24-2023 Note [facility] 12-24-2023 History of Presen t illness Narrative PATIENT NAME: Minal Caputo CLINIC NO.: [id number] ATTENDING PHYSICIAN: Mitch Neri MD DATE OF SERVICE: December 24, 2023 Some of the elements of this note have been copied from my previous progress note dated 11/30/2023. All the information has been reviewed carefully. Dear Dr. Mendoza Yang here is an update on a follow up visit on female Minal Caputo at the clinic December 24, 2023 Diagnosis: L Breast Cancer: pT3,N3,M0, Grade 2 ILC, 6.3 cm, LVI present, Margins Negative, ER 80%, KS 5% and Her-2 IHC-0 Germline testing 07/2023: [...] intussusception technique, September 04, 2023 DDAC started 10/22/2023, second cycle 11/05/2023 both complicated by neutropenic fever. After discussion switched to weekly taxol 12/03/2023 PE 11/05/2023 on Eliquis HPI: Minal Caputo is a 67 year [...] grade 1 invasive lobular carcinoma ER 80%, KS 5% and HER2/akash with IHC 0. A [...] to transfer her care to the [facility] and underwent a L breast mastectomy [...] skin without any abnormalities. Interval History: She wanted another week off the chemo as her fungal infection is improving. Grade 1 neuropathy and overall feeling better. PAST MEDICAL HISTORY Diagnosis Date Atrial fibrillation [...] of hands/feet. No weakness. PHYSICAL EXAMINATION: BP 129/60 Pulse 72 Temp (Src) 97.1 (Temporal) Resp 16 Ht 5' .157 (1.53m) Wt 262 lb 9.1 oz (119.1kg) SpO2 96% LMP 08/26/2006 BMI 51.01 kg/(m^2). Wt 125.2 kg (276 lb 0.3 [...] : Deferred LABS: Glucose (mg/dL) Date Value 12/24/2023 152 04/02/2018 129 Potassium (mmol/L) Date Value 12/24/2023 4.0 04/02/2018 4.1 Sodium (mmol/L) Date Value 12/24/2023 143 04/02/2018 136 Chloride (mmol/L) Date Value 12/24/2023 104 04/02/2018 100 CO2 (mmol/L) Date Value 12/24/2023 27 04/02/2018 25 Creatinine (mg/dL) Date Value 12/24/2023 1.12 04/02/2018 0.83 BUN (mg/dL) Date Value 12/24/2023 23 04/02/2018 16 Anion Gap (mmol/L) Date Value 12/24/2023 12 04/02/2018 11 Calcium (mg/dL) Date Value 04/02/2018 8.2 Calcium, Total (mg/dL) Date Value 12/24/2023 9.4 Protein, Total (g/dL) Date Value 12/24/2023 6.7 03/19/2018 6.8 Albumin (g/dL) Date Value 12/24/2023 4.1 03/19/2018 4.2 Bilirubin, Total (mg/dL) Date Value 12/24/2023 0.4 03/19/2018 0.5 Alkaline Phosphatase (U/L) Date Value 12/24/2023 98 03/19/2018 107 AST (U/L) Date Value 12/24/2023 26 03/19/2018 27 ALT (U/L) Date Value 12/24/2023 39 03/19/2018 38 WBC Date Value Ref Range Status 12/24/2023 6.08 3.70 - 11.00 k/uL Final RBC Date Value Ref Range Status 12/24/2023 3.76 (L) 3.90 - 5.20 m/uL Final Hemoglobin Date Value Ref Range Status 12/24/2023 11.9 11.5 - 15.5 g/dL Final Hematocrit Date Value Ref Range Status 12/24/2023 35.8 (L) 36.0 - 46.0 % Final MCV Date Value Ref Range Status 12/24/2023 95.2 80.0 - 100.0 fL Final MCH Date Value Ref Range Status 12/24/2023 31.6 26.0 - 34.0 pg Final MCHC Date Value Ref Range Status 12/24/2023 33.2 30.5 - 36.0 g/dL Final RDW-CV Date Value Ref Range Status 12/24/2023 18.4 (H) 11.5 - 15.0 % Final Platelet Count Date Value Ref Range Status 12/24/2023 322 150 - 400 k/uL Final MPV Date Value Ref Range Status 12/24/2023 9.2 9.0 - 12.7 fL Final Abs Neut Date Value Ref Range Status 12/24/2023 4.02 1.45 - 7.50 k/uL Final Lymphocytes % Date Value Ref Range Status 12/24/2023 20.6 % Final Abs Lymph Date Value Ref Range Status 12/24/2023 1.25 1.00 - 4.00 k/uL Final Monocytes % Date Value Ref Range Status 12/24/2023 9.4 % Final Abs [place] Date Value Ref Range Status 12/24/2023 0.57 <0.87 k/uL Final Eosin% Date Value Ref Range Status 11/05/2023 0.9 % Final Abs Eosin Date Value Ref Range Status 12/24/2023 0.18 <0.46 k/uL Final Basophils % Date Value Ref Range Status 12/24/2023 0.7 % Final Abs Baso Date Value Ref Range Status 12/24/2023 0.04 <0.11 k/uL Final PATH: L Breast [...] Examined (sentinel and non-sentinel) 4 Number of [place] Nodes Examined 4 pTNM CLASSIFICATION (AJCC 8th [...] invasive lobular carcinoma, grade 2, ER 80%, KS 5% and HER2/akash negative, IHC 0, cancer [...] also discussed the role of zoledronic acid. She started DDAC 10/22/2023 and has had a very hard time with both cycles and is very apprehensive about continuing chemo. I did discuss her hig risk disease and at this time will stop AC and she has agreed to transition to weekly Taxol, which she started 12/02/2022 but she has requested 2 weeks off due to skin fungal infections. I did discuss the rational for dose intensity in managing curative breast cancer to her,. See back next week for chemo PE continue NOAC Monitor Renal Function Thank you for the kind referral. If there are any questions and or concerns please do not hesitate to contact me at [phone]. Mitch Neri MD Hematology/Medical Oncology [facility] I spent a total of 30 minutes on the date of the service which included preparing to see the patient, [id number] patient care, completing clinical documentation, obtaining and/or reviewing separately obtained history, performing a medically appropriate examination, and counseling and educating the patient/family/caregiver. CC: Sunny Jenkins MD documented in this encounter [facility] 12-24-2023 Note [facility] 12-24-2023 History of Presen t illness Narrative FOLLOW UP I have communicated my name and active licensure. The patient's identity and physical location were verified at the time of this visit. Either the patient or their legal technical account representative has been informed of the risks and benefits of -- and alternatives to -- treatment through a remote evaluation and consents to proceed with the evaluation remotely. HPI: Minal Caputo is a 68 year old female with a history of left breast ILC ER+, KS low positive and HER2 negative, diagnosed in 06/2023. On 07/29/2023 she underwent a left breast mastectomy and left axillary sentinel lymph node biopsy with . Final pathology yielded; left breast 63 mm of ILC, grade 2, 3 lymph nodes with metastatic carcinoma and one with ITCs. She returned to the OR on 09/04/2023 for left axillary dissection in combination with Dr. Cobian for LVB, final pathology yielded; 25 out of 33 lymph nodes positive for metastatic carcinoma with the largest deposit measuring 16 mm. She elected to proceed with adjuvant chemotherapy closer to home with plans to complete radiation therapy after. She presents today virtually for a three month surgical follow up. She started adjuvant chemo at home but was only able to tolerate two treatments then was hospitalized twice, once for a PE and once for low WBC. She is now on Eliquis for he PE, plan for 3-6 months. Her oncologist at home then started her on weekly treatments x 12 weeks. She had one treatment and then had a bad yeast infection that is still being treated. Plan is to resume treatments once this is resolved. She will then proceed with radiation therapy also closer to home. Today she denies any new masses, skin changes, nipple discharge or inversion. She denies any arm swelling and states her ROM is back to normal. PAST MEDICAL HISTORY Diagnosis Date Atrial fibrillation [...] SURGICAL HISTORY OF Bilateral total knee arthroplasty REVIEW OF SYSTEMS: GENERAL: No weight loss, malaise or fevers NECK: Negative for lumps, goiter, pain and significant neck swelling RESPIRATORY: Negative for cough, hemoptysis, wheezing, COPD, dyspnea or shortness of breath CARDIOVASCULAR: Negative for chest pain, leg swelling, hypertension, CHF or palpitations GI: No nausea, vomiting, or diarrhea +constipation after treatments : No history of dysuria, frequency or incontinence BUNCH BREAKER: Negative for abnormal vaginal bleeding, abnormal vaginal discharge MUSCULOSKELETAL: Negative for joint pain or swelling, back pain or muscle pain SKIN: Negative for lesions, rash, and itching HEMATOLOGY/LYMPHOLOGY: Negative for prolonged bleeding, bruising easily or swollen nodes ENDOCRINE: Negative for cold or heat intolerance, polyuria, polydipsia and goiter PHYSICAL EXAM: Deferred due to virtual visit ASSESSMENT/PLAN: Minal Caputo is a 68 year old female who presents virtually today for three month surgical follow up. She has a history of left breast ILC ER+, KS low positive and HER2 negative, diagnosed in 06/2023. On 07/29/2023 she underwent a left breast mastectomy and left axillary sentinel lymph node biopsy with . Final pathology yielded; left breast 63 mm of ILC, grade 2, 3 lymph nodes with metastatic carcinoma and one with ITCs. She returned to the OR on 09/04/2023 for left axillary dissection in combination with Dr. Cobian for LVB, final pathology yielded; 25 out of 33 lymph nodes positive for metastatic carcinoma with the largest deposit measuring 16 mm. She began adjuvant chemotherapy closer to home but has had some complications including a PE for which she is now on Eliquis. Plan is for her to proceed with adjuvant radiation therapy also closer to home once chemo is complete. She has no concerns today, no palpable masses, skin changes, nipple discharge or inversion. She denies any arm swelling and states her ROM is back to normal. She will continue with treatments at home and follow up with us as needed. Breast awareness discussed Continue treatments with medical oncology closer to home Proceed with radiation therapy once chemotherapy is complete also closer to home Return to the breast center as needed with any new or worsening symptoms or concerns. I spent a total of 20 minutes on the date of the service which included preparing to see the patient, completing clinical documentation, obtaining and/or reviewing separately obtained history, and counseling and educating the patient/family/caregiver. Ev Cai APRN.NEY documented in this encounter [facility] 12-24-2023 Evaluation note Diagnosis Invasive lobular carcinoma of breast in female (HCC)- Primary Stage 3a chronic kidney disease (HCC) documented in this encounter [facility] History of Present illness Narrative* Brianna Renner APRN.CNP - 12/10/2023 9:58 AM EDT PATIENT NAME: Minal Caputo [facility] NO.: [id number] ATTENDING PHYSICIAN: Mitch Neri MD DATE OF SERVICE: December 10, 2023 (Elements copied from Cathy Templeton's note dated December 03, 2023, have been reviewed and updated whereappropriate, and all reflect current assessment and medical decision making during today's encounter, December 10, 2023.) Cc: Follow up and Taxol. Diagnosis: Left Breast Cancer: pT3,N3,M0, Grade 2 ILC, 6.3 cm, LVI present, Margins Negative, ER 80%, KS 5% and Her-2 IHC-0 Germline testing 07/2023: [...] intussusception technique, September 04, 2023. DDAC started 10/22/2023, second cycle 11/05/2023 both complicated by neutropenic fever and discontinued after cycle 2. PE 11/05/2023 on Eliquis. December 03, 2023 weekly taxol started. HPI: Minal Caputo is a 68 year old year old female here for follow up and treatment. Briefly, Minal felt a lump in [...] her left breast. This led to additional workupincluding a diagnostic mammogram in April 2023. This demonstrated a persistent distortion deep central breast with greater fatty replacement. Patient underwent a left breast biopsy June 2023 which demonstrated a grade 1 invasive lobular carcinoma ER 80%, KS 5% and HER2/akash with IHC 0. A [...] to transfer her care to the [facility] and underwent a L breast mastectomy and SLN biopsy on 07/29/2023/ Path demonstrated an invasive lobular carcinoma, grade 2, 6.3 cm, negative margins. Multifocal ADH, 4 sentinel lymph nodes 3 with macrometastasis and extranodal extension and 1 with an isolated tumor cell. After discussion the patient underwent completion left axillarydissection on 06/14/2024 and 25 out of 33 lymph nodes were positive for metastatic carcinoma, largest tumor deposit 16 mm with extranodal extension. Additional left breast skin without any abnormalities. Interval History: Minal Caputo returns for follow-up and continued treatment. She is here for treatment with Taxol. She has an ongoing problem with yeast infection. She denies fevers, chills and signs/symptoms of infection. No bleeding or abnormal bruising. She is eating and drinking well. She is tearful and wishes she never started chemotherapy. PAST MEDICAL HISTORY Diagnosis Date Atrial fibrillation [...] of hands/feet. No weakness. PHYSICAL EXAMINATION: BP 133/80 Pulse 97 Temp (Src) 97.8 (Temporal) Resp 18 Ht 5' .157 (1.53m) Wt 260 lb 5.8 oz (118.1kg) SpO2 95% LMP 08/26/2006 BMI 50.58 kg/(m^2). ECOG PERFORMANCE STATUS: 0- Fully active, able to carry on all pre-disease performance w/o restriction. General: Alert and oriented, no distress, pleasant and cooperative. Using a walker. Heart: Regular, normal S1 and S2, no murmurs, rubs or gallops. Lungs: Clear to auscultation bilaterally. Abdomen: Benign. Extremities: Feet/ankles without edema, posterior tibial pulses full and symmetrical. Skin: Red, yeast rash at waistline. LABS: Glucose (mg/dL) Date Value 12/10/2023 159 04/02/2018 129 Potassium (mmol/L) Date Value 12/10/2023 5.0 04/02/2018 4.1 Sodium (mmol/L) Date Value 12/10/2023 143 04/02/2018 136 Chloride (mmol/L) Date Value 12/10/2023 107 04/02/2018 100 CO2 (mmol/L) Date Value 12/10/2023 24 04/02/2018 25 Creatinine (mg/dL) Date Value 12/10/2023 1.25 04/02/2018 0.83 BUN (mg/dL) Date Value 12/10/2023 28 04/02/2018 16 Anion Gap (mmol/L) Date Value 12/10/2023 12 04/02/2018 11 Calcium (mg/dL) Date Value 04/02/2018 8.2 Calcium, Total (mg/dL) Date Value 12/10/2023 10.0 Protein, Total (g/dL) Date Value 12/10/2023 6.6 03/19/2018 6.8 Albumin (g/dL) Date Value 12/10/2023 4.0 03/19/2018 4.2 Bilirubin, Total (mg/dL) Date Value 12/10/2023 0.3 03/19/2018 0.5 Alkaline Phosphatase (U/L) Date Value 12/10/2023 101 03/19/2018 107 AST (U/L) Date Value 12/10/2023 17 03/19/2018 27 ALT (U/L) Date Value 12/10/2023 28 03/19/2018 38 WBC Date Value Ref Range Status 12/10/2023 7.56 3.70 - 11.00 k/uL Final RBC Date Value Ref Range Status 12/10/2023 3.59 (L) 3.90 - 5.20 m/uL Final Hemoglobin Date Value Ref Range Status 12/10/2023 11.0 (L) 11.5 - 15.5 g/dL Final Hematocrit Date Value Ref Range Status 12/10/2023 33.6 (L) 36.0 - 46.0 % Final MCV Date Value Ref Range Status 12/10/2023 93.6 80.0 - 100.0 fL Final MCH Date Value Ref Range Status 12/10/2023 30.6 26.0 - 34.0 pg Final MCHC Date Value Ref Range Status 12/10/2023 32.7 30.5 - 36.0 g/dL Final RDW-CV Date Value Ref Range Status 12/10/2023 16.7 (H) 11.5 - 15.0 % Final Platelet Count Date Value Ref Range Status 12/10/2023 335 150 - 400 k/uL Final MPV Date Value Ref Range Status 12/10/2023 9.9 9.0 - 12.7 fL Final Abs Neut Date Value Ref Range Status 12/10/2023 5.10 1.45 - 7.50 k/uL Final Lymphocytes % Date Value Ref Range Status 12/10/2023 17.9 % Final Abs Lymph Date Value Ref Range Status 12/10/2023 1.35 1.00 - 4.00 k/uL Final Monocytes % Date Value Ref Range Status 12/10/2023 4.2 % Final Abs [place] Date Value Ref Range Status 12/10/2023 0.32 <0.87 k/uL Final Eosin% Date Value Ref Range Status 11/05/2023 0.9 % Final Abs Eosin Date Value Ref Range Status 12/10/2023 0.69 (H) <0.46 k/uL Final Basophils % Date Value Ref Range Status 12/10/2023 0.8 % Final Abs Baso Date Value Ref Range Status 12/10/2023 0.06 <0.11 k/uL Final PATH: Left Breast Lumpectomy [...] Examined (sentinel and non-sentinel) 4 Number of Kirby Nodes Examined 4 pTNM CLASSIFICATION (AJCC 8th Edition) Reporting of pT, pN, and (when applicable) pM categories is based on information available to the pathologist at the time the report is issued. As per the AJCC (Chapter 1, 8th Ed.) it is the managingphysician s responsibility to establish the final pathologic [...] invasive lobular carcinoma, grade 2, ER 80%, KS 5% and HER2/akash negative, IHC 0, cancer [...] also discussed the role of zoledronic acid. She started DDAC 10/22/2023 and has had a very hard time with both cycles and is very apprehensive about continuing chemo. She has high risk disease and this has been discussed with her. At this time will have elected to stop AC and she has agreed to transition to weekly Taxol. WE reviewed the potential risks of Taxol, including neuropathy, infusion reaction, GI side effects and arthralgia. Patient has consented to treatment and will begin today. Hold treatment today as she doesn't want to proceed. She will return as scheduled. PE continue NOAC Brianna Renner APRN.[employer] CC: Sunny Jenkins MD I spent a total of 30 minutes on the date of the service which included preparing to see the patient, [id number] patient care, completing clinical documentation, obtaining and/or reviewing separately obtained history, performing a medically appropriate examination, counseling and educating the pat ient/family/caregiver, ordering medications, tests, or procedures, independently interpreting results (not separately reported), and communicating results to the patient/family/caregiver. documented in this encounterJ.W. [facility]04-15-2024 Miscellaneous Notes* Telephone Encounter - Mitch Neri MD - 12/09/2023 12:16 PM EDT Thanks for the update * Telephone Encounter - Yvonne Baumann RN - 12/09/2023 11:43 AM EDT Call placed to pt to follow up after treatment last week. Pt states she has some numbness in her fingertips and toes. States she has cramping in her toes, feet, and lower legs mainly when she's sitting down. States her toes go up in the air and it's hard to get them down, she has to force her heel down stop it. Pt states the lower extremity edema that she usually has is much better. Yeast infection is bad again. States she has a couple of fluconazole pills left, is going to get a refill of her cream today. Notes she's having stomach pain on left side of abdomen and bloating. Denies nausea/vomiting. Had constipation but began taking stool softener and had a BM yesterday. Please advise Yvonne Baumann RN documented in this encounterJ.W. [facility]04-15-2024 Miscellaneous Notes* Telephone Encounter - Yvonne Baumann RN - 12/09/2023 11:36 AM EDT CYCLE 1/DAY 1 POST TREATMENT CALL Today's date: December 09, 2023 Treatment Regimen: taxol [id number] Date: 12/03/23 Called patient to follow-up on symptom management. Spoke with patient SYMPTOM ASSESSMENT Neuro: Numbness/Weakness/Tingling pt states she has some numbness in her fingertips and toes. States she has cramping in her toes, feet, and lower legs mainly when she's sitting down. States her toes go up in the air and it's hard to get them down, she has to force her heel down stop it. Pt states the lower extremity edema that she usually has is much better. CV/Resp: Shortness of breath no changes, with activity and Edema: in bilateral lower extremities is much better now GI/: Appetite: has to force herself to eat, Fluid intake: good, Constipation: yes, last BM yesterday andis now taking stool softener, and denies nausea/vomiting, yeast infection is bad again. States she has a couple of fluconazole pills left, is going to get a refill of her cream today. Integument: None Activity: Patient reported decreased energy level Pain: stomach pain on left abdomen and bloating, cramping in her lower legs, feet, and toes bilaterally Fever: No Chills: No Any new referrals needed? No Reinforced CURRENT treatment education based on current and anticipated symptoms. Discussed port/line care and patient verbalizes understanding: Yes Patient instructed to contact office or after hours Hematology/Oncology fellow for: temperature ? 100.4; questions or concerns. Patient verbalized understanding of when to seek medical attention and after hours number protocol. Yvonne Baumann RN documented in this encounterJ.W. [facility]04-09-2024 NoteBethesda [facility]04-09-[facility] History of Present illness Narrative* Yvonne Baumann RN - 12/03/2023 12:29 PM EDT ONCOLOGY PATIENT EDUCATION NOTE TOPIC: Chemotherapy, Medications: taxol READINESS TO LEARN: COGNITIVE ABILITY: Alert and oriented MOTIVATION TO LEARN: Interested FAMILY SUPPORT: High - Very involved in pt care INSTRUCTION PROVIDED TO: Patient and sister INSTRUCTION PROVIDED BY: Nurse Coordinator PATIENT LEARNS BEST BY: Multiple Methods FACTORS AFFECTING LEARNING: None PHYSICAL LIMITATIONS AFFECTING LEARNING: None LEARNING RESPONSE DIAGNOSIS: breast cancer METHOD OF INSTRUCTION: Individual instruction Written instruction - handouts Verbal instruction PATIENT/FAMILY RESPONSE: Verbalizes understanding of: CHEMOTHERAPY-Regimen, toxicity and side effects INFECTION MANAGEMENT-Signs and symptoms of an infection and importance of contacting the physician MEDICAL REGIMEN-Importance of following prescribed medical regimen MEDICATION PRESCRIBED-Accurate knowledge of prescribed medication prior to discharge MEDICATION ROUTE-Correct route for administration of the prescribed medication MEDICATION SIDE EFFECTS-Side effects associated with the medication that warrant a call to the physician PATIENT SAFETY PRINCIPLES SYMPTOM MANAGEMENT-Correct actions to take to manage symptoms associated with his/her disease/illness WORSENING CONDITION-Signs and symptoms of a worsening condition that warrant a call to the physician Information received as demonstrated by interest and questions FOLLOW UP PLAN: Patient instructed to call with any further issues Recommend - Recommend continued instruction and follow up as directed Follow up phone call. Contact information given. SUPPLEMENTAL MATERIAL: Written material was provided at this visit with the following information: - Chemotherapy education was provided by a pharmacist NO - Side effect management information was provided/discussed including but not limited to: abdominaldiscomfort, anemia, appetite changes, arthralgia, bowel habit changes, chest pain, diet, electrolyte disturbances, fatigue, fluid retention, hair loss, headache, hypersensitivity reaction, infection,mucositis, myalgia, nausea/vomitting, neutropenia, peripheral neuropathy, rash, risk for DVT, shortness of breath, skin changes, taste changes, thrombocytopenia YES - Provided important phone numbers and contacts during and after hours. YES - Provided information on symptoms that require immediate assistance. YES - Provided Chemotherapy when to call handouts YES - Preventing infection. YES - Treatment schedule and confirmation of appointment times. YES - Available support groups. NA - The importance of contraception during the course of chemotherapy NA - Neutropenic fever protocol discussed with patient, which included the importance of reporting anyfever of 100.4F (38.0C) or greater to the healthcare team as noted on the provided wallet card and/or magnet. YES - Pt has my journey binder at home from previous treatment - Pt has antiemetics at home from previous treatment Time Spent: 20 minutes REFERRAL (RECOMMENDATION): N/A Yvonne Baumann, RN documented in this encounterJ.W. [facility]04-09-2024 History of Present illness Narrative* Cathy Templeton PA-C - 12/03/2023 11:00 AM EDT PATIENT NAME: Minal Campos [facility] NO.: [id number] ATTENDING PHYSICIAN: Mitch Neri MD DATE OF SERVICE: December 03, 2023 (Elements copied from Dr. Neri's note dated November 30, 2023, have been reviewed and updated whereappropriate, and all reflect current assessment and medical decision making during today's encounter, December 03, 2023) Cc: Follow up to start taxol Diagnosis: L Breast Cancer: pT3,N3,M0, Grade 2 ILC, 6.3 cm, LVI present, Margins Negative, ER 80%, KS 5% and Her-2 IHC-0 Germline testing 07/2023: [...] intussusception technique, September 04, 2023 DDAC started 10/22/2023, second cycle 11/05/2023 both complicated by neutropenic fever and discontinued after cycle 2 PE 11/05/2023 on Eliquis December 03, 2023 weekly taxol started. HPI: Minal Caputo is a 67 year [...] her left breast. This led to additional workupincluding a diagnostic mammogram in April 2023. This demonstrated a persistent distortion deep central breast with greater fatty replacement. Patient underwent a left breast biopsy June 2023 which demonstrated a grade 1 invasive lobular carcinoma ER 80%, KS 5% and HER2/akash with IHC 0. A [...] to transfer her care to the [facility] and underwent a L breast mastectomy and SLN biopsy on 07/29/2023/ Path demonstrated an invasive lobular carcinoma, grade 2, 6.3 cm, negative margins. Multifocal ADH, 4 sentinel lymph nodes 3 with macrometastasis and extranodal extension and 1 with an isolated tumor cell. After discussion the patient underwent completion left axillarydissection on 06/14/2024 and 25 out of 33 lymph nodes were positive for metastatic carcinoma, largest tumor deposit 16 mm with extranodal extension. Additional left breast skin without any abnormalities. Interval History: Minal is here to start Taxol weekly. Her AC was discontinued early after poor tolerance to the 2 cycles she did have. She remains on NOAC as well. She does report a yeast infection at her waistline that she reports she has had off and on for years with her PCP treating it with clortrimazole and betamethasone cream and diflucan 100 mg. PAST MEDICAL HISTORY Diagnosis Date Atrial fibrillation [...] swelling, back pain, and muscle pain. SKIN: +yeast infection HEMATOLOGY/LYMPHOLOGY Negative for prolonged bleeding, bruising easily, and swollen nodes. NEURO: Negative for numbness or tingling of hands/feet. No weakness. PHYSICAL EXAMINATION: BP 137/67 Pulse 77 Temp (Src) 97.4 (Axillary) Resp 16 Ht 5' .157 [verified 2 caregivers-pt unable to stand straight-shoes off[ (1.53m) Wt 259 lb 0.7 oz (117.5kg) SpO2 95% LMP 08/26/2006 BMI 50.33 kg/(m^2). ECOG PERFORMANCE STATUS: 0- Fully active, able to carry on all pre-disease performance w/o restriction. General: Alert and oriented, no distress, pleasant and cooperative. Using a walker Heart: Regular, normal S1 and S2, no murmurs, rubs, or gallops Lungs: Clear to auscultation bilaterally Abdomen: Benign Extremities: Feet/ankles without edema, posterior tibial pulses full and symmetrical Skin: red, yeast rash at waistline LABS: Glucose (mg/dL) Date Value 11/26/2023 160 04/02/2018 129 Potassium (mmol/L) Date Value 11/26/2023 4.5 04/02/2018 4.1 Sodium (mmol/L) Date Value 11/26/2023 147 04/02/2018 136 Chloride (mmol/L) Date Value 11/26/2023 105 04/02/2018 100 CO2 (mmol/L) Date Value 11/26/2023 28 04/02/2018 25 Creatinine (mg/dL) Date Value 11/26/2023 1.35 04/02/2018 0.83 BUN (mg/dL) Date Value 11/26/2023 18 04/02/2018 16 Anion Gap (mmol/L) Date Value 11/26/2023 14 04/02/2018 11 Calcium (mg/dL) Date Value 04/02/2018 8.2 Calcium, Total (mg/dL) Date Value 11/26/2023 10.0 Protein, Total (g/dL) Date Value 11/26/2023 6.5 03/19/2018 6.8 Albumin (g/dL) Date Value 11/26/2023 4.1 03/19/2018 4.2 Bilirubin, Total (mg/dL) Date Value 11/26/2023 0.2 03/19/2018 0.5 Alkaline Phosphatase (U/L) Date Value 11/26/2023 105 03/19/2018 107 AST (U/L) Date Value 11/26/2023 20 03/19/2018 27 ALT (U/L) Date Value 11/26/2023 24 03/19/2018 38 WBC Date Value Ref Range Status 12/03/2023 5.84 3.70 - 11.00 k/uL Final RBC Date Value Ref Range Status 12/03/2023 3.65 (L) 3.90 - 5.20 m/uL Final Hemoglobin Date Value Ref Range Status 12/03/2023 11.3 (L) 11.5 - 15.5 g/dL Final Hematocrit Date Value Ref Range Status 12/03/2023 33.9 (L) 36.0 - 46.0 % Final MCV Date Value Ref Range Status 12/03/2023 92.9 80.0 - 100.0 fL Final MCH Date Value Ref Range Status 12/03/2023 31.0 26.0 - 34.0 pg Final MCHC Date Value Ref Range Status 12/03/2023 33.3 30.5 - 36.0 g/dL Final RDW-CV Date Value Ref Range Status 12/03/2023 16.6 (H) 11.5 - 15.0 % Final Platelet Count Date Value Ref Range Status 12/03/2023 556 (H) 150 - 400 k/uL Final MPV Date Value Ref Range Status 12/03/2023 9.3 9.0 - 12.7 fL Final Abs Neut Date Value Ref Range Status 12/03/2023 3.76 1.45 - 7.50 k/uL Final Lymphocytes % Date Value Ref Range Status 12/03/2023 20.4 % Final Abs Lymph Date Value Ref Range Status 12/03/2023 1.19 1.00 - 4.00 k/uL Final Monocytes % Date Value Ref Range Status 12/03/2023 9.2 % Final Abs [place] Date Value Ref Range Status 12/03/2023 0.54 <0.87 k/uL Final Eosin% Date Value Ref Range Status 11/05/2023 0.9 % Final Abs Eosin Date Value Ref Range Status 12/03/2023 0.21 <0.46 k/uL Final Basophils % Date Value Ref Range Status 12/03/2023 1.9 % Final Abs Baso Date Value Ref Range Status 12/03/2023 0.11 (H) <0.11 k/uL Final PATH: L Breast Lumpectomy and SLN Biopsy 07/2023: INVASIVE CARCINOMA OF THE BREAST: Resection 8th Edition - Protocol posted: 11/14/2022 INVASIVE CARCINOMA OF THE BREAST: EXCISION - All Specimens SPECIMEN Procedure Total mastectomy Specimen Laterality Left TUMOR Tumor Site Lower outer quadrant to central Histologic Type Invasive lobular carcinoma Histologic Grade ([place] Histologic Score) Glandular (Acinar) / Tubular Differentiation [...] Examined (sentinel and non-sentinel) 4 Number of [place] Nodes Examined 4 pTNM CLASSIFICATION (AJCC 8th Edition) Reporting of pT, pN, and (when applicable) pM categories is based on information available to the pathologist at the time the report is issued. As per the AJCC (Chapter 1, 8th Ed.) it is the managingphysician s responsibility to establish the final pathologic [...] invasive lobular carcinoma, grade 2, ER 80%, KS 5% and HER2/akash negative, IHC 0, cancer [...] also discussed the role of zoledronic acid. She started DDAC 10/22/2023 and has had a very hard time with both cycles and is very apprehensive about continuing chemo. She has high risk disease and this has been discussed with her. At this time will have elected to stop AC and she has agreed to transition to weekly Taxol. WE reviewed the potential risks of Taxol, including neuropathy, infusion reaction, GI side effects and arthralgia. Patient has consented to treatment and will begin today. She will return in 1 week for week 2. PE continue NOAC Cathy Templeton PA-C CC: Sunny Jenkins MD I spent a total of 30 minutes on the date of the service which included preparing to see the patient, [id number] patient care, completing clinical documentation, obtaining and/or reviewing separately obtained history, performing a medically appropriate examination, counseling and educating the pat ient/family/caregiver, ordering medications, tests, or procedures, independently interpreting results (not separately reported), and communicating results to the patient/family/caregiver. documented in this encounterJ.W. [facility]04-09-2024 NoteBethesda North Hospital04-03-2024 History of Present illness Narrative* Leo Gerard, LENA- H[employer]EL CONCIERGE - 11/27/2023 2:45 PM EDT Images from the original note were not included. Subjective Patient ID: Minal Caputo is a 68 y.o. female. HPI Minal Caputo reports to the clinic today for a same-day visit for intertrigo. She reports therash has persisted for over a week with no relief. Typically, she takes oral Fluconazole every 3 days and applies her Mycolog ointment and the yeast clears up. (The flucanozole was prescribed by her vania baldwin PCP at [facility]). She has currently taken Fluconazole on Saturday and once today. Minal feels that due to her antibiotics, the yeast infection is not clearing up this time with her routine therapy. She still has two doses of her antibiotic left but she feels that her UTI has cleared. Patient requests to discontinue her antibiotic at this time. Patient declines prescription for Nystatin powderas she reports it gets everywhere and dislikes the method of application. Patient reports extremediscomfort with her open sores from her intertrigo and is willing to try another topical or oral method. She reports her chemo had to get push back until next week, as oncology would like the opportun ity for this to heal. The following portions of the patient's history were reviewed and updated as appropriate: allergies, current medications, past family history, past medical history, past social history, past surgicalhistory, problem list, and medication reconciliation was completed including current medication andpost discharge medication. Review of Systems Constitutional: Negative. HENT: Negative. Eyes: Negative. Respiratory: Negative. Cardiovascular: Negative. Gastrointestinal: Negative. Endocrine: Negative. Genitourinary: Negative. Musculoskeletal: Negative. Skin: Positive for rash. Groin both sides, tummy fold; burning sensation Allergic/Immunologic: Negative. Neurological: Negative. Hematological: Negative. Psychiatric/Behavioral: Negative. Objective Physical Exam Vitals and nursing note reviewed. Exam conducted with a voice coach present. Constitutional: Appearance: Normal appearance. HENT: Head: Normocephalic and atraumatic. Right Ear: Tympanic membrane, ear canal and external ear normal. Left Ear: Tympanic membrane, ear canal and external ear normal. Nose: Nose normal. Mouth/Throat: Mouth: Mucous membranes are moist. Pharynx: Oropharynx is clear. Eyes: Extraocular Movements: Extraocular movements intact. Conjunctiva/sclera: Conjunctivae normal. Pupils: Pupils are equal, round, and reactive to light. Cardiovascular: Rate and Rhythm: Normal rate and regular rhythm. Pulses: Normal pulses. Heart sounds: Normal heart sounds. Pulmonary: Effort: Pulmonary effort is normal. Breath sounds: Normal breath sounds. Abdominal: General: Abdomen is flat. Palpations: Abdomen is soft. Musculoskeletal: General: Normal range of motion. Cervical back: Normal range of motion and neck supple. Skin: General: Skin is warm and dry. Capillary Refill: Capillary refill takes less than 2 seconds. Findings: Erythema and rash present. Comments: Intertrigo in bilateral groin area and under stomach folds Neurological: General: No focal deficit present. Mental Status: She is alert and oriented to person, place, and time. Psychiatric: Mood and Affect: Mood normal. Behavior: Behavior normal. Thought Content: Thought content normal. Judgment: Judgment normal. Assessment/Plan 1.) Discontinue Doxycycline and Cefzil antibiotics (Pt Request) 2.) RX for daily flucanozole and lotrisone sent into patient pharmacy 3.) Next appointment 01/28/24 4.) Minal will call the office if symptoms are not improving. Minal was seen today for open sores. Diagnoses and all orders for this visit: Intertrigo Jessica infection Other orders - fluconazole (DIFLUCAN) 100 mg tablet; Take 1 tablet (100 mg total) by mouth in the morning for 14days. - clotrimazole-betamethasone (LOTRISONE) cream; Apply 1 Application topically in the morning and 1 Application before bedtime. Do all this for 14 days. Apply to affected area 2 times daily. MIR Sheppard 11/27/23 [id number] documented in this encounterMercy [facility] Hospital04-02-2024 History of Present illness Narrative* Suzie Johns RN - 11/26/2023 12:00 PM EDT Pt is not getting treatment today. Pt was de-accessed and sent home. Suzie Johns RN documented in this encounterJ.W. [facility]04-02-2024 NoteHNO ID: [id number] Author: SUZIE JOHNS RN Service: ? Author Type: Registered Nurse Type: Progress Notes Filed: 11/26/2023 12:02 Note Text: Pt is not getting treatment today. Pt was de-accessed and sent home. Suzie Johns, PRINCEBethesda North Hospital04-02-2024 NoteBethesda North Hospital04-02-2024 History of Present illness Narrative* Mitch Neri MD - 11/26/2023 11:42 AM EDT PATIENT NAME: Minal Caputo CLINIC NO.: [id number] ATTENDING PHYSICIAN: Mitch Neri MD DATE OF SERVICE: November 30, 2023 Some of the elements of this note have been copied from my previous progress note dated 10/22/2023. All the information has been reviewed carefully. Dear Dr. Mendoza Yang here is an update on a follow up visit on female Minal Caputo at the clinic November 30, 2023 Diagnosis: L Breast Cancer: pT3,N3,M0, Grade 2 ILC, 6.3 cm, LVI present, Margins Negative, ER 80%, KS 5% and Her-2 IHC-0 Germline testing 07/2023: [...] intussusception technique, September 04, 2023 DDAC started 10/22/2023, second cycle 11/05/2023 both complicated by neutropenic fever. PE 11/05/2023 on Eliquis HPI: Minal Caputo is a 67 year [...] her left breast. This led to additional workupincluding a diagnostic mammogram in April 2023. This demonstrated a persistent distortion deep central breast with greater fatty replacement. Patient underwent a left breast biopsy June 2023 which demonstrated a grade 1 invasive lobular carcinoma ER 80%, KS 5% and HER2/akash with IHC 0. A [...] to transfer her care to the [facility] and underwent a L breast mastectomy and SLN biopsy on 07/29/2023/ Path demonstrated an invasive lobular carcinoma, grade 2, 6.3 cm, negative margins. Multifocal ADH, 4 sentinel lymph nodes 3 with macrometastasis and extranodal extension and 1 with an isolated tumor cell. After discussion the patient underwent completion left axillarydissection on 06/14/2024 and 25 out of 33 lymph nodes were positive for metastatic carcinoma, largest tumor deposit 16 mm with extranodal extension. Additional left breast skin without any abnormalities. Interval History: Patient with significant fatigue and also admitted after both cycles of AC with neutropenic fevers andalso PE 11/05/2023 and breathing has improved on a NOAC. PAST MEDICAL HISTORY Diagnosis Date Atrial fibrillation [...] of hands/feet. No weakness. PHYSICAL EXAMINATION: BP 123/60 Pulse 84 Temp (Src) 98 (Temporal) Resp 16 Ht 5' .551 (1.54m) Wt 263 lb 14.3 oz(119.7kg) SpO2 98% LMP 08/26/2006 BMI 50.60 kg/(m^2). Wt 125.2 kg (276 lb 0.3 [...] : Deferred LABS: Glucose (mg/dL) Date Value 11/26/2023 160 04/02/2018 129 Potassium (mmol/L) Date Value 11/26/2023 4.5 04/02/2018 4.1 Sodium (mmol/L) Date Value 11/26/2023 147 04/02/2018 136 Chloride (mmol/L) Date Value 11/26/2023 105 04/02/2018 100 CO2 (mmol/L) Date Value 11/26/2023 28 04/02/2018 25 Creatinine (mg/dL) Date Value 11/26/2023 1.35 04/02/2018 0.83 BUN (mg/dL) Date Value 11/26/2023 18 04/02/2018 16 Anion Gap (mmol/L) Date Value 11/26/2023 14 04/02/2018 11 Calcium (mg/dL) Date Value 04/02/2018 8.2 Calcium, Total (mg/dL) Date Value 11/26/2023 10.0 Protein, Total (g/dL) Date Value 11/26/2023 6.5 03/19/2018 6.8 Albumin (g/dL) Date Value 11/26/2023 4.1 03/19/2018 4.2 Bilirubin, Total (mg/dL) Date Value 11/26/2023 0.2 03/19/2018 0.5 Alkaline Phosphatase (U/L) Date Value 11/26/2023 105 03/19/2018 107 AST (U/L) Date Value 11/26/2023 20 03/19/2018 27 ALT (U/L) Date Value 11/26/2023 24 03/19/2018 38 WBC Date Value Ref Range Status 11/26/2023 6.85 3.70 - 11.00 k/uL Final RBC Date Value Ref Range Status 11/26/2023 3.46 (L) 3.90 - 5.20 m/uL Final Hemoglobin Date Value Ref Range Status 11/26/2023 10.6 (L) 11.5 - 15.5 g/dL Final Hematocrit Date Value Ref Range Status 11/26/2023 32.4 (L) 36.0 - 46.0 % Final MCV Date Value Ref Range Status 11/26/2023 93.6 80.0 - 100.0 fL Final MCH Date Value Ref Range Status 11/26/2023 30.6 26.0 - 34.0 pg Final MCHC Date Value Ref Range Status 11/26/2023 32.7 30.5 - 36.0 g/dL Final RDW-CV Date Value Ref Range Status 11/26/2023 16.2 (H) 11.5 - 15.0 % Final Platelet Count Date Value Ref Range Status 11/26/2023 513 (H) 150 - 400 k/uL Final MPV Date Value Ref Range Status 11/26/2023 9.0 9.0 - 12.7 fL Final Abs Neut Date Value Ref Range Status 11/26/2023 5.18 1.45 - 7.50 k/uL Final Lymphocytes % Date Value Ref Range Status 11/26/2023 15.2 % Final Abs Lymph Date Value Ref Range Status 11/26/2023 1.04 1.00 - 4.00 k/uL Final Monocytes % Date Value Ref Range Status 11/26/2023 6.9 % Final Abs [place] Date Value Ref Range Status 11/26/2023 0.47 <0.87 k/uL Final Eosin% Date Value Ref Range Status 11/05/2023 0.9 % Final Abs Eosin Date Value Ref Range Status 11/26/2023 0.05 <0.46 k/uL Final Basophils % Date Value Ref Range Status 11/26/2023 1.0 % Final Abs Baso Date Value Ref Range Status 11/26/2023 0.07 <0.11 k/uL Final PATH: L Breast Lumpectomy and SLN Biopsy 07/2023: INVASIVE CARCINOMA OF THE BREAST: Resection 8th Edition - Protocol posted: 11/14/2022 INVASIVE CARCINOMA OF THE BREAST: EXCISION - All Specimens SPECIMEN Procedure Total mastectomy Specimen Laterality Left TUMOR Tumor Site Lower outer quadrant to central Histologic Type Invasive lobular carcinoma Histologic Grade ([place] Histologic Score) Glandular (Acinar) / Tubular Differentiation [...] Examined (sentinel and non-sentinel) 4 Number of Kirby Nodes Examined 4 pTNM CLASSIFICATION (AJCC 8th Edition) Reporting of pT, pN, and (when applicable) pM categories is based on information available to the pathologist at the time the report is issued. As per the AJCC (Chapter 1, 8th Ed.) it is the managingphysician s responsibility to establish the final pathologic [...] invasive lobular carcinoma, grade 2, ER 80%, KS 5% and HER2/akash negative, IHC 0, cancer [...] also discussed the role of zoledronic acid. She started DDAC 10/22/2023 and has had a very hard time with both cycles and is very apprehensive about continuing chemo. I did discuss her hig risk disease and at this time will stop AC and she has agreed to transition to weekly Taxol. Will start next week PE continue NOAC See back nexty week to start Taxol and she will also get teaching as well Thank you for the kind referral. If there are any questions and or concerns please do not hesitate to contact me at [phone]. Mitch Neri MD Hematology/Medical Oncology [facility] I spent a total of 30 minutes on the date of the service which included preparing to see the patient, [id number] patient care, completing clinical documentation, obtaining and/or reviewing separately obtained history, performing a medically appropriate examination, and counseling and educating the patient/family/caregiver. CC: Sunny Jenkins MD documented in this encounterJ.W. [facility]04-02-2024 [facility]04-02-2024 History of Present illness Narrative* Nona Cannon RD - 11/26/2023 11:24 AM EDT Oncology Nutrition Therapy Reassessment Per PSS, patient did not receive treatment today, but did go back to infusion to visit nursing and another patient. Briefly spoke to patient who denies needs at this time and requested follow up at later date. Signed by: Nona Cannon MS, RDN, LD documented in this encounterJ.W. Ruby [facility] Hospital03-26-2024 Miscellaneous Notes* Telephone Encounter - Merary Resendiz CNA - 11/19/2023 4:20 PM EDT Shanel [facility] requested a verbal order to continue Fdc and provider will follow patient? * Telephone Encounter - Sunny Jenkins MD - 11/19/2023 4:20 PM EDT Ok to follow Please call and notify Thanks, SUNNY JENKINS MD 11/20/23 * Telephone Encounter - Merary Resendiz CNA - 11/19/2023 4:20 PM EDT Notified. documented in this encounterMercy [facility] Hospital03-26-2024 Telephone encounter Note* Telephone Encounter - Merary Resendiz CNA - 11/19/2023 4:20 PM EDT Shanel [facility] requested a verbal order to continue Fdc and provider will follow patient? [facility]03-26-[facility] Telephone encounter Note* Telephone Encounter - Sunny Jenkins MD - 11/19/2023 4:20 PM EDT Ok to follow Please call and notify Thanks, SUNNY JENKINS MD 11/20/23 [facility]03-26-20[facility] Telephone encounter Note* Telephone Encounter - Merary Resendiz CNA - 11/19/2023 4:20 PM EDT Notified. [facility]03-21-20[facility] History of Present illness Narrative* MIR Sheppard - 11/14/2023 3:00 PM EDT Subjective Patient ID: Minal Caputo is a 68 y.o. female. The patient is here today for discharge follow up from hospital. Transition of Care Med Rec completed? Yes Discharged medications: Medications have been reviewed and reconciled with the most recent facilitydischarge document. HPI Minal presents to the office for hospital discharge follow up. She was admitted to [facility] on 11/05/2023 for provoked pulmonary embolism likely secondary to cancer. She was also newly diagnosed with diastolic dysfunction and heart failure. She was previously on 20 mg of lasix once da\taurus, but it was increased to 40 mg once daily at discharge from [place]. She was also sent home on 2 tablets of eliquis BID for 7 days, then to continue on one tablet BID for [address] Jenkins recommendedtreatment for at least 3 months. So she will need rx sent when she is d/t to have it filled. CTA chest noted numerous pulmonary embolism to right lung. concerning ofr segmental Pulmonary Embolism. In which she was on heparin drip and then initiated on Eliquis. Echo indicated chronic diastolic dysfunction along with evidenced of volume overload and she was onIV diuresis while in the hospital. EF 59%. When asked if she has followed with cardiology, she reports she followed with them in the past but they did nothing . She is following with Dr. Kramer at [facility] for oncology. She is status post masectomy and axillary lymph node removal and is currently undergoing chemo therapy. Reports next Chemo treatment is Saturday. First 4 treatments every 2 weeks, then weekly. Then she will begin radiation. She continues feeling SOB, since PE. She continues to have some pressure to her chest that occurs throughout the day. She has been taking tylenol PRN. No new concerns today, she would just like to reevaluate lungs at some point to see if the clots have dissolved. The following portions of the patient's history were reviewed and updated as appropriate: allergies, current medications, past family history, past medical history, past social history, past surgicalhistory, problem list, and medication reconciliation was completed including current medication andpost discharge medication. Review of Systems Constitutional: Positive for fatigue and fever. Reports low grade temperature is baseline since starting chemo Respiratory: Positive for shortness of breath. Cardiovascular: Positive for leg swelling. Gastrointestinal: Positive for constipation. Negative for nausea. Neurological: Positive for light-headedness and headaches. Negative for dizziness and syncope. Objective Physical Exam Vitals (Pulse ox 93% RA) and nursing note reviewed. Constitutional: Appearance: Normal appearance. HENT: Head: Normocephalic and atraumatic. Eyes: Extraocular Movements: Extraocular movements intact. Pupils: Pupils are equal, round, and reactive to light. Cardiovascular: Rate and Rhythm: Normal rate and regular rhythm. Pulses: Normal pulses. Heart sounds: Normal heart sounds. No murmur heard. Pulmonary: Effort: Pulmonary effort is normal. Breath sounds: Normal breath sounds. Abdominal: General: Bowel sounds are normal. Palpations: Abdomen is soft. Musculoskeletal: Cervical back: Normal range of motion and neck supple. Right lower le+ Edema present. Left lower le+ Edema present. Skin: Capillary Refill: Capillary refill takes less than 2 seconds. Findings: No erythema or rash. Neurological: Mental Status: She is alert and oriented to person, place, and time. Assessment/Plan Records reviewed. She will let us know when she is almost out of the Eliquis to send in 3 months worth of eliquis 5 mg BID. Coupon card provided today along with [facility] # for support d/t medicare. . She has 2+ pitting edema and SOB, possibly related to CHF, increase Lasix to 40 mg bid for 2 weeks,then resume 40 mg once daily. Labs ordered to be completed when she finishes this two weeks of increased lasix. She will monitor BP and weight. Continue to FU with specialist including cardiology. FU with PCP in 2-3 months. Minal was seen today for transistional care. Diagnoses and all orders for this visit: 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 ([facility]) Diuresis - furosemide (LASIX) 40 mg tablet; Take 1 tablet (40 mg total) by mouth 2 (two) times a day before meals for 14 days. - Basic Metabolic Panel; Future Hospital discharge follow-up Diastolic dysfunction with acute on chronic heart failure (CMS-HCC) Primary hypertension Primary invasive malignant neoplasm of female breast, left ([facility]-H[facility]) Other orders - potassium chloride (K-TAB,KLOR-CON) 10 MEQ CR tablet; Take 1 tablet (10 mEq total) by mouth in the morning and 1 tablet (10 mEq total) before bedtime. MIR Sheppard 11/17/23 [id number] documented in this encounterProMedica Health [id number] Miscellaneous Notes* Telephone Encounter - Yvonne Baumann RN - 11/11/2023 3:51 PM EDT Spoke with patient regarding her hospitalization. Pt states she was able to get eliquis filled froma month free voucher. Pt states her monthly copay will be >$500. Pt agreeable for a script to besent to our pharmacy to see what they're able to do. Please sign script for pt Thanks Yvonne Baumann RN documented in this encounterJ.W. Ruby [facility]03-18-2024 Miscellaneous Notes* Telephone Encounter - Yvonne Baumann RN - 11/11/2023 3:00 PM EDT DISCHARGE CALL BACK Today's date: November 11, 2023 Notified of Pt discharge by: previous telephone encounter [place] [facility] [place] Primary Cancer Diagnosis: Breast Cancer Admitting Diagnosis: PE, acute on chronic diastolic hear failure Discharge Summary/SBAR reviewed: Yes Handoff Discussed with Transitional Automatic Glove Former: No, unavailable Psychosocial Risk Factors: None If [...] appointment: No will send new script of [facility] so they can begin authorization process. MEDICATION ADHERENCE Patient discharged with prescriptions? Yes, eliquis and spironolactone Discharge prescriptions filled: Yes Patient understands when to take prescriptions: Yes FOLLOW UP Patient scheduled for follow-up appointment within 5 business days of discharge? No, Other: previous appointment already scheduled for 11/19/23. Dr Neri will not be in the office until 11/18. Patient reminded of follow-up appointment with [facility] provider, Dr Neri on 11/19/23: Yes Discussed with pt how [...] YES Yvonne Baumann RN documented in this encounterJ.W. Ruby [facility] Hospital03-18-2024 Miscellaneous Notes* Telephone Encounter - Perla Marlow - 11/11/2023 12:41 PM EDT D/C summary scanned. * Telephone Encounter - Yvonne Baumann RN - 11/11/2023 11:54 AM EDT Pt has been discharged. Nel: can you get d/c summary please. Thanks Yvonne Baumann RN * Telephone Encounter - Yvonne Baumann RN - 11/07/2023 1:05 PM EDT Spoke with Harlan, bedside nurse. He states pt is doing well and is asking about a couple of meds. Med list reviewed with nurse. Nurse states pt did not receive any steroids yesterday or today post chemo infusion. No further questions Yvonne Baumann RN * Telephone Encounter - Yvonne Baumann RN - 11/06/2023 9:20 AM EDT Spoke with Nery, bedside nurse who states pt is doing well. Pt currently on a heparin drip. Pt's sats are normal on room air. Denies any concerns at this time. Yvonne Baumann RN documented in this encounterJ.W. Ruby [facility] Hospital03-18-2024 Miscellaneous Notes* Telephone Encounter - Will Dean CMA - 11/11/2023 9:11 AM EDT Patient requesting refill. Patient stated [facility] requested her to double her current dose of 20 mg. * Telephone Encounter - Merary Resendiz CNA - 11/11/2023 9:11 AM EDT Minal called to inform she is out of medication and needs this today. documented in this encounterMercy Memorial Hospital03-18-2024 Telephone encounter Note* Telephone Encounter - Will Dean CMA - 11/11/2023 9:11 AM EDT Patient requesting refill. Patient stated [facility] requested her to double her current dose of 20 mg. [facility]03-18-2024 Telephone encounter Note* Telephone Encounter - Merary Resendiz CNA - 11/11/2023 9:11 AM EDT Minal called to inform she is out of medication and needs this today. [facility]03-13-2024 Miscellaneous Notes* Telephone Encounter - Steph Rendon CMA - 11/06/2023 9:51 AM EDT ----- Message from uSnny Jenkins MD sent at 11/05/2023 8:24 PM EDT ----- Abnormal result. CT Angio concerning ofr segmental Pulmonary Embolism, patient should initiate Eliquis for a minimumof 3 months WALLACE. Please call and schedule appointment with any provider to review. I will prescribe the medicine which patient should start. SUNNY JENKINS MD * Telephone Encounter - Steph Rendon CMA - 11/06/2023 9:51 AM EDT Called patient and informed her. She stated understanding and also informed us she is currently in [facility] and was admitted. The nurse was in the room at the time I explained results and they went ahead and scheduled a SHEBA and at that time would like to discuss results. documented in this encounterAv[facility] [employer] [id number] Telephone encounter Note* Telephone Encounter - Steph Rendon CMA - 11/06/2023 9:51 AM EDT ----- Message from Sunny Jenkins MD sent at 11/05/2023 8:24 PM EDT ----- Abnormal result. CT Angio concerning ofr segmental Pulmonary Embolism, patient should initiate Eliquis for a minimumof 3 months W[place]ACE. Please call and schedule appointment with any provider to review. I will prescribe the medicine which patient should start. SUNNY JENKINS MD [facility]03-13-2024 Telephone encounter Note* Telephone Encounter - Steph Rendon CMA - 11/06/2023 9:51 AM EDT Called patient and informed her. She stated understanding and also informed us she is currently in [facility] and was admitted. The nurse was in the room at the time I explained results and they went ahead and scheduled a SHEBA and at that time would like to discuss results. [facility]03-12-2024 Miscellaneous Notes* Telephone Encounter - Yvonne Baumann RN - 11/05/2023 4:11 PM EDT Pt notified of scan results and will pick up attendant medication today. Yvonne Baumann RN * Telephone Encounter - Yvonne Baumann RN - 11/05/2023 3:[address] Neir received a call from radiologist stating pt has a PE on scan. Dr Neri would like tostart pt on Eliquis Please sign pending script. Yvonne Baumann RN documented in this encounterJ.W. Ruby [facility] Hospital03-12-2024 NoteBethesda North Hospital03-12-2024 History of Present illness Narrative* Brianna Renner APRN.HOTEL CONCIERGE - 11/05/2023 9:56 AM EDT PATIENT NAME: Minal Caputo CLINIC NO.: [id number] ATTENDING PHYSICIAN: Mitch Neri MD DATE OF SERVICE: November 05, 2023 Some of the elements of this note have been copied from Dr. Neri's previous progress note date10/22/2203. All the information has been reviewed carefully. Dear Dr. Mendoza Yang here is an update on a follow up visit on female Minal Caputo at the clinic October 22, 2023. Diagnosis: L Breast Cancer: pT3,N3,M0, Grade 2 ILC, 6.3 cm, LVI present, Margins Negative, ER 80%, KS 5% and Her-2 IHC-0. Germline testing 07/2023: [...] her left breast. This led to additional workupincluding a diagnostic mammogram in April 2023. This demonstrated a persistent distortion deep central breast with greater fatty replacement. Patient underwent a left breast biopsy June 2023 which demonstrated a grade 1 invasive lobular carcinoma ER 80%, KS 5% and HER2/akash with IHC 0. A [...] to [facility] and underwent a L breast mastectomy and SLN biopsy on 07/29/2023/ Path demonstrated an invasive lobular carcinoma, grade 2, 6.3 cm, negative margins. Multifocal ADH, 4 sentinel lymph nodes 3 with macrometastasis and extranodal extension and 1 with an isolated tumor cell. After discussion the patient underwent completion left axillarydissection on 06/14/2024 and 25 out of 33 lymph nodes were positive for metastatic carcinoma, largest tumor deposit 16 mm with extranodal extension. Additional left breast skin without any abnormalities. Interval History: Minal Caputo returns for scheduled follow-up and cycle 2 Adriamycin and Cytoxan. After her last treatment she states that she had fevers for 10 to 11 days. Her highest feverbeing 103.5. She noticed increasing shortness of breath. [...] Range Status 11/05/2023 5.4 % Final Abs [place] Date Value Ref Range Status 11/05/2023 0.38 [...] Histologic Type Invasive lobular carcinoma Histologic Grade ([place] Histologic Score) Glandular (Acinar) / Tubular Differentiation [...] Examined (sentinel and non-sentinel) 4 Number of Kirby Nodes Examined 4 pTNM CLASSIFICATION (AJCC 8th Edition) Reporting of pT, pN, and (when applicable) pM categories is based on information available to the pathologist at the time the report is issued. As per the AJCC (Chapter 1, 8th Ed.) it is the managingphysician s responsibility to establish the final pathologic [...] invasive lobular carcinoma, grade 2, ER 80%, KS 5% and HER2/akash negative, IHC 0, cancer [...] in detail and she hasdsigned consent and proceedwith therapy. Dex for delayed nausea as well. Will proceed with cycle 2 Adriamycin and Cytoxan. We will see her back in 2 weeks for follow-up andcontinued treatment. I discussed with Dr. Neri patient's concerns regarding continued treatment. For the patient's intermittent fevers will prescribe Cipro 500 mg twice daily x 7 days. For her increasing shortness of breath we will also order a CT scan of her chest to rule out PE. Thank you for the kind referral. If there are any questions and or concerns please do not hesitate to contact Mitch Neri [facility] [phone]. Brianna Renner APRN.NEY Hematology/Medical Oncology [facility] CC: Sunny Jenkins MD I spent a total of 30 minutes on the date of the service which included preparing to see the patient, [id number] patient care, completing clinical documentation, obtaining and/or reviewing separately obtained history, performing a medically appropriate examination, counseling and educating the pat ient/family/caregiver, ordering medications, tests, or procedures, independently interpreting results (not separately reported), and communicating results to the patient/family/caregiver. documented in this encounterJ.W. Ruby [facility] Hospital03-12-2024 Nurse Note* Kortney Ho - 11/05/2023 9:50 AM EDT Patient is very winded. She states that she is all the time now. Started a few days ago. documented in this encounterJ.W. Ruby [facility] Hospital03-08-2024 Miscellaneous Notes* Telephone Encounter - Merary Resendiz CNA - 11/01/2023 9:30 AM EST She requested a refill on her losartan, also. Which is not on the patient list. documented in this encounterMercy Memorial Hospital03-08-2024 Telephone encounter Note* Telephone Encounter - Merary Resendiz CNA - 11/01/2023 9:30 AM EST She requested a refill on her losartan, also. Which is not on the patient list. [facility]02-29-20[facility] History of Present illness Narrative* Gabby Cobian MD - 10/24/2023 10:15 AM EST Plastic Surgery Note CC: Post op This visit was conducted as a virtual visit via phone call with the patient's consent. HPI: Minal is a 67 year old female, s/p: Date of Surgery: 09/04/2023 Surgery: Left axillary immediate lymphatic reconstruction with 2 lymphatics via an intussusception 0.4mm and0.3 mm lymphatic into 1mm vein flow confirmed with milk test 22 modifier given the added complexityvia the small size as well as surgical duration for these procedures as well as given the patient'sbody habitus. Adjacent tissue rearrangement left chest 34x4cm [...] as well as radiation. She does not haveany subjective symptoms of lymphedema. I encouraged her [...] patient is seen and examined by Dr. Cobian and the following reflects his service. Scribed by Ivy Christina RN I agree with the Chief Complaint, ROS, and Past Histories independently gathered by the clinical network support engineer and the remaining scribed note accurately describes my personal service to the patient. documented in this encounterJ.W. Ruby [facility] Hospital02-29-2024 NoteBethesda North Hospital02-28-2024 Miscellaneous Notes* Telephone Encounter - Laura Lowry - 10/23/2023 4:40 PM EST Paperwork faex to Lydia @ [phone]. Laura Lowry * Telephone Encounter - Laura Lowry - 10/22/2023 11:18 AM EST STD paperwork for Guardian has been completed and placed in folder to be signed. Laura Lowry documented in this encounterJ.W. Ruby [facility] Hospital02-28-2024 [facility]02-[facility] History of Present illness Narrative* Deepika Garcia LSW - 10/23/2023 3:51 PM EST SOCIAL WORK FOLLOW UP NOTE: [facility] Date of service:10/23/23 Minal Caputo [...] as appropriate. BABS Canales documented in this encounterJ.W. Ruby [facility] Hospital02-27-2024 [facility]02-27-20[facility] History of Present illness Narrative* Deepika Garcia LSW - 10/22/2023 4:04 PM EST SOCIAL WORK FOLLOW UP NOTE: [facility] Date of service:10/22/23 Minal Caputo [...] as appropriate. BABS Canales documented in this encounterJ.W. Ruby [facility] Hospital02-27-2024 NoteBethesda North Hospital02-27-2024 History of Present illness Narrative* Nell Cid RN - 10/22/2023 10:07 AM ESTSummary: Doxorubicin administration Doxorubicin administered via right chest infusaport without complications. Doxorubicin administeredvia free flowing normal saline with positive blood return maintained throughout infusion. Pt deniedany pain or discomfort at site. N Palak RN,BSN,OCN documented in this encounterJ.W. Ruby [facility] Hospital02-27-2024 NoteBethesda North Hospital02-27-2024 History of Present illness Narrative* Mitch Neri MD - 10/22/2023 9:38 AM EST PATIENT NAME: Minal Caputo CLINIC NO.: [id number] ATTENDING PHYSICIAN: Mitch Neri MD DATE OF SERVICE: October 22, 2023 [...] cm, LVI present, Margins Negative, ER 80%, KS 5% and Her-2 IHC-0 Germline testing 07/2023: [...] her left breast. This led to additional workupincluding a diagnostic mammogram in April 2023. This demonstrated a persistent distortion deep central breast with greater fatty replacement. Patient underwent a left breast biopsy June 2023 which demonstrated a grade 1 invasive lobular carcinoma ER 80%, KS 5% and HER2/akash with IHC 0. A [...] to transfer her care to the [facility] and underwent a L breast mastectomy and SLN biopsy on 07/29/2023/ Path demonstrated an invasive lobular carcinoma, grade 2, 6.3 cm, negative margins. Multifocal ADH, 4 sentinel lymph nodes 3 with macrometastasis and extranodal extension and 1 with an isolated tumor cell. After discussion the patient underwent completion left axillarydissection on 06/14/2024 and 25 out of 33 [...] 16 Ht 5' .551 [verified by 2 caregivers/shoes off[ (1.54m) Wt 268 lb 4.8 oz [...] Range Status 10/22/2023 4.4 % Final Abs [place] Date Value Ref Range Status 10/22/2023 0.54 [...] Histologic Type Invasive lobular carcinoma Histologic Grade (Colchester Histologic Score) Glandular (Acinar) / Tubular Differentiation [...] Examined (sentinel and non-sentinel) 4 Number of Kirby Nodes Examined 4 pTNM CLASSIFICATION (AJCC 8th Edition) Reporting of pT, pN, and (when applicable) pM categories is based on information available to the pathologist at the time the report is issued. As per the AJCC (Chapter 1, 8th Ed.) it is the managingphysician s responsibility to establish the final pathologic [...] invasive lobular carcinoma, grade 2, ER 80%, KS 5% and HER2/akash negative, IHC 0, cancer [...] do not hesitate to contact me at [phone]. Mitch Neri MD Hematology/Medical Oncology [facility] Hightower spent a total of 30 minutes on the date of the service which included preparing to see the patient, aqoi-ai-aowy patient care, completing clinical documentation, obtaining and/or reviewing separately obtained history, performing a medically appropriate examination, and counseling and educating the patient/family/caregiver. CC: Sunny Jenkins MD documented in this encounterJ.W. [facility]02-27-2024 NoteBethesda North Hospital02-27-2024 History of Present illness Narrative* Nona Cannon RD - 10/22/2023 9:32 AM EST Oncology Nutrition Therapy Initial Assessment RECOMMENDED MALNUTRITION [...] Comments: weight fluctuations expected given diuretic therapy Liberty Body Weight: 46.9kg Estimated kilocalorie needs: 2385-3276 kilocalories determined by 30-35 kcal/kg Estimated protein needs: 47-70 grams determined by 1.0-1.5 g/kg Liberty weight Estimated fluid needs: ~5384-3348 milliliters based on 1 mL per kcal [...] Cannon MS, RDN, LD documented in this encounterJ.W. Ruby [facility] Hospital02-19-2024 Miscellaneous Notes* Telephone Encounter - Nery Simeon - 10/14/2023 10:14 AM EST Patient has been rescheduled to 10/22 and notified. Thanks! Nery Simeon * Telephone Encounter - Yvonne Baumann RN - 10/14/2023 9:27 AM EST Pt calls stating she's due to start treatment tomorrow but she needs to reschedule it because she'ssick right now. Pt is audibly wheezing over [...] Thanks Yvonne Baumann, RN documented in this encounterJ.W. Ruby [facility] Hospital02-16-2024 Miscellaneous Notes* Telephone Encounter - Laura Lowry - 10/11/2023 12:[address] labs for appt/tx on 10/15. Laura Lowry documented in this encounterJ.W. Ruby [facility] Hospital02-15-2024 Miscellaneous Notes* Telephone Encounter - Kendal Watts RN - 10/10/2023 2:56 PM EST Crystal from [facility] notes that they received an order from Dr Neri for a compression sleeve. Requesting clinical documentation. Office notes from 09/20/23 (Plastic Surgery) and 09/17/23 (Dr Neri) faxed to [phone]. Kendal Watts RN documented in this encounterJ.W. Ruby Memorial Hospital02-14-2024 History of Present illness Narrative* MIR Sheppard - 10/09/2023 10:30 AM EST Subjective Patient ID: Minal Caputo is a 67 y.o. female. LA Turner presents to the office for sick visit. Patient's past medical history is significant for right breast mass, positive for ILC grade 1 carcinoma, she is [facility] and will begin chemotherapy for invasive malignant neoplasm of left breast. Minal reports she was supposed to begin treatment today, but it was postponed until next week d/t illness. Following with rheumatology, currently on methotrexate. Minal states sheis also currently on a steroid d/t rash from port insertion. Minal reports she has sinus infection,she states she gets one around this time [...] past medical history, past social history, past surgicalhistory, and problem list. Review of Systems Constitutional: [...] spray; SPRAY 1 SPRAY INTO EACH NOSTRIL INTHE MORNING - cetirizine (ZyrTEC) 10 mg tablet; Take 1 tablet (10 mg total) by mouth in the morning. - cefDINIR (OMNICEF) 300 mg capsule; Take 1 capsule (300 mg total) by mouth in the morning and 1 capsule (300 mg total) before bedtime. Do all this for 7 days. MIR Sheppard 10/09/23 [id number] documented in this encounterMercy Memorial Hospital02-12-2024 Miscellaneous Notes* Telephone Encounter - Eliceo Mejia RN - 10/07/2023 9:37 AM EST Received call from Minal with concerns of extensive itching and redness around the port she had placed on September 27. Had patient send picture to IR coordinator email and reviewed image and concerns with Dr. Villafuerte, who originally placed port at [place]. Dr. CLARK spoke with patient's oncologist, Dr. Neri, and plan was put in place to postpone chemo treatment and take oral steroids for one week to see if rash and itching improves. Patient updated and agreeable to plan of care. documented in this encounterJ.W. Ruby [facility] Hospital02-02-2024 Miscellaneous Notes* Telephone Encounter - Yessi Caban - 09/27/2023 9:48 AM EST Patient is scheduled for her Neulasta injection on , 10/10 at 8:30am. I notified Deepika Garcia, who will meet with her during her treatment on Saturday, 10/09 to discuss wigs. ThanksYessi * Telephone Encounter - Yvonne Baumann RN - 09/27/2023 9:07 AM EST Pt is agreeable to coming in day [...] Thanks Yvonne Baumann RN documented in this encounterJ.W. Ruby [facility] Hospital02-01-2024 Instructions* Patient Instructions* Nell Martin PA-C - 09/26/2023 8:02 AM EST PATIENT PREOPERATIVE INSTRUCTIONS Lynda Villafuerte* has scheduled you for your procedure at this surgery center: [facility]: [phone] --[address] [place] [address]. Please enter through the entrance closest to [...] Procedures: - YOU MUST HAVE A RESPONSIBLE OIL FIELD TESTER TAKE YOU HOME. A MAGNETIC TESTER OR WAGE AND SALARY ADMINISTRATOR CANNOT BE MADE A RESPONSIBLE OIL FIELD TESTER. - We recommend that a responsible person stays with you overnight to take care of you. - You cannot stay in a hotel alone after outpatient surgery. You will not be permitted to have yoursurgery, if you do not have someone to [...] Advance Directive, please fax a copy to [phone] or email to for it to be added to your chart. If you do not have an Advance Directive, you can find the appropriate form and more information at [email or web address]. We recommend that youcomplete the Advance Directive form found on the website and bring it with you the day of your surgery. It can be witnessed and scanned into your chart that day. documented in this encounterJ.W. Ruby [facility] Hospital02-01-2024 History and physical note * Nell Martin PA-C - 09/26/2023 7:57 AM EST HISTORY AND PHYSICAL EXAMINATION SERVICE DATE: 09/26/2023 [...] fevers. Neuro: No history of TIA's, stroke, CONTROL SUPERVISOR tumor, impaired sensorium, hemiplegia, paraplegia or quadraplegia. [...] or incontinence,, stones or chronic kidney disease BUNCH BREAKER: See HPI : N/A, Patient's last menstrual period was 08/26/2006 (approximate). Endocrine: (+) borderline diabetic, thyroid nodule- monitored Hematology: No history of bleeding or clotting disorder. Pt is not taking anti- coagulation or platelet medications. No history of hematological [...] Obtained from outside source and scanned into [facility] Date: 09/18/2023 Result: LV systolic function normal [...] fusion rods again noted RA (rheumatoid arthritis) ([facility]) Assessment: sero positive RA methotrexate and folic [...] 2023 TIME: 7:57 AM documented in this encounterJ.W. Ruby [facility] Hospital01-31-2024 Miscellaneous Notes* Telephone Encounter - Citlali Sanchez CMA - 09/25/2023 9:59 AM EST Spoke with patient regarding NM HMT Molecular breast imaging localization test that Dr. Soto ordered on 07/10/23. Patient originally had it scheduled with [facility] on 08/08/23 but patient had cancelled it through her MyChart. Patient stated today that she [facility] and has already had a Mastectomy. Will inform Dr. Soto. documented in this encounterMercy Memorial Hospital01-31-2024 Telephone encounter Note* Telephone Encounter - Citlali Sanchez CMA - 09/25/2023 9:59 AM EST Spoke with patient regarding NM HMT Molecular breast imaging localization test that Dr. Soto ordered on 07/10/23. Patient originally had it scheduled with [facility] on 08/08/23 but patient had cancelled it through her MyChart. Patient stated today that she [facility] and has already had a Mastectomy. Will inform Dr. Soto. [facility]01-30-2024 NoteBethesda North Hospital01-30-2024 Note [facility]01-30-2024 NoteBethesda North Hospital01-26-2024 NoteHNO ID: [id number] Author: GABBY COBIAN MD Service: ? Author Type: Physician Type: [...] 4 weeks after surgery. Do not perform medical assistant secretary such as laundry and vacuuming. Do not [...] -Consult to lymphedema therapy placed. Please call [phone] to schedule, change, cancel or confirm an appointment. -Return to clinic in when CASSIDY drain meets criteria for removal, okay for home health to remove drain. -Follow up w/ Dr. Cobian in 4 weeks. -If experiencing wound complications or have any questions or concerns during business hours call [phone], option 3 or after hours (after 5 pm or on the weekend) call [phone] and ask for the plastic surgery resident / fellow cotton presser for further instructions. If you have increasing [...] patient is seen and examined by Dr. Cobian and the following reflects his service. Scribed by Elida Cordoba RN I agree with the Chief Complaint, ROS, and Past Histories independently gathered by the clinical network support engineer and the remaining scribed note accurately describes my personal service to the patient.[facility]01-23-2024 Note [facility]01-19-2024 NoteBethesda North Hospital01-19-2024 NoteBethesda North Hospital01-19-2024 NoteBethes[facility] North Hospital 09-05-2023 NoteBethesda North Hospital01-11-2024 NoteBethesda North Hospital01-10-2024 NoteHNO ID: [id number] Author: ELICEO ANDRADE RN Service: ? Author Type: Registered Nurse Type: Nursing Progress Note Filed: 09/04/2023 17:21 Note Text: Plastics paged about pt BP of 165/110.[facility]01-10-2024 Note [facility]01-10-2024 NoteBethes[facility] North Hospital01-04-2024 NoteBethesda North Hospital01-04-2024 NoteBethes[facility] North Hospital 08-23-2023 Miscellaneous Notes* Telephone Encounter - Kalyani Rachel CMA - 08/23/2023 10:13 AM EST Doris from [facility] called into the office and just wanted to make you aware of pts blood pressure has been running between 150-180 for her diastolic number. And has also had increased edema in herlegs. documented in this encounterMercy Memorial Hospital12-29-2023 Telephone encounter Note* Telephone Encounter - Kalyani Rachel CMA - 08/23/2023 10:13 AM EST Doris from [facility] called into the office and just wanted to make you aware of pts blood pressure has been running between 150-180 for her diastolic number. And has also had increased edema in herlegs. [facility] [employer] [id number] NoteBethesda North Hospital12-12-2023 History of Present illness Narrative* Ev Cai APRN.[facility] - 08/06/2023 10:45 AM EST BREAST CANCER POST OPERATIVE FOLLOW-UP SERVICE DATE: 08/06/2023 SURGERY DATE: 07/29/2023 POSTOPERATIVE VISIT #1 SUBJECTIVE: Minal Caputo, 67 year old female presents today status post left breast mastectomy and leftaxillary sentinel lymph node biopsy. She was given oxycodone postoperatively and took 0 pills. She has not had much pain since surgery, she used Tylenol the day of surgery but has not needed anything since. She denies any erythema, fever, chills or other signs of infection. CASSIDY drain still putting out 60-80 cc daily. Pathology: SURGICAL PATHOLOGY: [id number] Order: [id number] Collected 07/29/2023 11:29 AM Status: Final result Visible to patient: No (scheduled for 08/11/2023 4:46 PM) Dx: Invasive lobular carcinoma of breast ... 0 Result Notes Component FINAL DIAGNOSIS A. Left breast, mastectomy: - Invasive lobular carcinoma, [place] grade 2, at least 63 mm, negative [...] lymph node, 14 mm, with extranodal extension (/). C. Left axillary sentinel lymph node #2, excision: Metastatic carcinoma in one lymph node, 4 mm (1/). D. Left axillary sentinel lymph node #3, excision: Metastatic carcinoma in one lymph node, 18 mm, with extranodal extension (/). E. Left axillary sentinel lymph node #4, [...] been determined by the performing laboratory within [facility] s [facility] Pathology and Laboratory Medicine [place] ([facility], [facility], [facility], [facility], [facility], [facility], or [facility]) in a manner consistent with CLIA requirements. One or more of these tests have not been cleared or approved by the FDA. [facility] is regulated under CLIA as qualified to perform high-complexity testing. These tests are used for clinical purposes. They should not be regarded as invest igational or for research. Positive and negative controls [...] Examined (sentinel and non-sentinel) 4 Number of Kirby Nodes Examined 4 pTNM CLASSIFICATION (AJCC 8th Edition) Reporting of pT, pN, and (when applicable) pM categories is based on information available to the pathologist at the time the report is issued. As per the AJCC (Chapter 1, 8th Ed.) it is the managingphysician s responsibility to establish the final pathologic stage based upon all pertinent information, including but potentially not limited to this pathology report. pT Category pT3 pN Category pN1a N Suffix (sn) SPECIAL STUDIES Testing Performed on (outside case, slides reviewed at the [facility]) Comment(s) Invasive lobular carcinoma is present in [...] minimal pain. Drain still putting out 60-80 ccof serosanguineous fluid, dressing changed. Discussed not wrapping [...] concerns. Ev Cai APRN.NEY documented in this encounterJ.W. Ruby [facility] Hospital12-12-2023 [facility]12-12-2023 Nurse Note* Shannan Schulz - 08/06/2023 8:42 AM EST Reviewed and confirmed with patient that there were no changes in the the nursing assessment and vitals that were completed on August 06, 2023 during previous provider appointment. Shannan Schulz documented in this encounterJ.W. Ruby Memorial Hospital12-12-2023 Nurse Note* Shannan Schulz - 08/06/2023 8:33 AM EST Additional intake questions: Has the patient had fever, nausea, vomiting, diarrhea, constipation, fatigue for > 1 week? No Does the patient have a decreased appetite? No Does patient want to see a Head Holder? No (yes to any of above refer patient to schedulers for dietitian appointment) ) Does patient have any new or increased numbness or tingling of extremities? No Is patient interested in fertility information? No Does patient need any prescription refills? No Does patient have an advanced directive in place? No, Patient referred to [facility] documented in this encounterJ.W. Ruby [facility] Hospital12-12-2023 History of Present illness Narrative* Mendoza Yagn MD - 08/06/2023 8:30 AM EST BREAST CANCER FOLLOW UP NOTE SERVICE DATE: August 05, 2023 Oncology History Overview Note Prev callbacks, no prev biopsies. [place] a right breast lump few months prior [...] abnormality, there is a 4.5 x 2.5 x3.3cm irregular hypoechoic mass with angular margins and posterior acoustic shadowing. Imaging appears to indicate that this is approximately 1.2cm from the nipple. Other cysts are imaged. Also skin t hickening anteriorly, axilla wasn't imaged 06/19/23: left breast core biopsy ILC grade 1, ER 80% KS 5% HER2 IHC 0 07/08/23: PET: fdg [...] Stage IB (cT2, cN0, cM0, G1, ER+, KS+, HER2-) - Signed by Mendoza Yang MD on 07/23/2023 08/06/2023 Cancer Staged Staging form: Breast, AJCC 8th Edition - Pathologic stage from 08/06/2023: pT3, pN1a, G2, ER+, KS+, HER2- - Signed by Mendoza Yang MD [...] Stage IB (cT2, cN0, cM0, G1, ER+, KS+, HER2-) - Signed by Mendoza Yang MD on 07/23/2023 - Pathologic stage from 08/06/2023: pT3, pN1a, G2, ER+, KS+, HER2- - Signed by Mendoza Yang MD [...] trials with potential adriamycin addition). To be discussedpostop - vit D 07/26/23 69.2 RTC: 1 week postop Mendoza Yang MD Associate Staff Breast Medical Oncology [facility] cc: Rita Amanda MD I spent a total of 45 minutes on the date of the service which included preparing to see the patient, [id number] patient care, completing clinical documentation, obtaining and/or reviewing separately obtained history, and performing a medically appropriate examination. documented in this encounterJ.W. Ruby [facility] Hospital12-12-2023 NoteBethesda North Hospital12-05-2023 NoteBethesda North Hospital12-04-2023 NoteBethes[facility] North Hospital12-04-2023 NoteBethesda North Hospital12-04-2023 History of Present illness Narrative* Giovani Gardner, RT(R) - 07/29/2023 7:30 AM EST RADIOLOGY SERVICE PROGRESS NOTE SERVICE DATE: 07/29/2023 [...] creatinine assay has traceable calibration to isotope dilution- mass spectrometry. Refer to KDIGO guidelines for clinical interpretation. In patients with unstable renal function, e.g. those with acute kidney injury, the eGFRmay not accurately reflect actual GFR. eGFR- Date [...] 8:22AM PATIENT DISCHARGED TO: Ambulatory patient, left [place] department area. A Diagnostic radioactive procedure has taken place, with no further precautions necessary other than routine body substance precautions. More information regarding radiation safety can be found usingthis link: [email or web address] SIGNATURE: RT Nick(Junior) PATIENT NAME: Minal Caputo DATE: July 29, 2023 TIME: 8:30 AM PAGER/CONTACT #: documented in this encounterJ.W. Ruby [facility] Hospital12-04-2023 NoteBethesda North Hospital12-01-2023 History and physical note* Maria M Mari APRN.[facility] - 07/26/2023 11:50 AM EST HISTORY AND PHYSICAL EXAMINATION SERVICE DATE: 07/26/2023 [...] is recommended for surgery. Pt. currently denies anybreast pain or skin changes; she reports left [...] fevers. Neuro: No history of TIA's, stroke, CONTROL SUPERVISOR tumor, impaired sensorium, hemiplegia, paraplegia or quadraplegia. [...] or incontinence,, stones or chronic kidney disease BUNCH BREAKER: See HPI : N/A, Patient's last menstrual period was 08/26/2006 (approximate). Endocrine: (+) borderline diabetic, thyroid nodule- monitored Hematology: No history of bleeding or clotting disorder. Pt is not taking anti- coagulation or platelet medications. No history of hematological [...] 418 QTC Calculation (Bazett) 444 Calculated P [place] 30 Calculated R [place] 13 Calculated T [place] 40 Impression NORMAL SINUS RHYTHM NORMAL ECG Confirmed by LAMINE ALY MD ([id number]) on 02/06/2023 10:07:03 AM Type of Monitor: [...] fusion rods again noted. RA (rheumatoid arthritis) ([facility]) Assessment: sero positive RA methotrexate and folic [...] 2023 TIME: 12:03 PM documented in this encounterJ.W. Ruby Memorial Hospital12-01-2023 Instructions* Patient Instructions* Maria M Mari APRN.CNP - 07/26/2023 11:17 AM EST PATIENT PREOPERATIVE INSTRUCTIONS Heather Castillo MD has scheduled you for your procedure at this surgery center: [facility] [place] [facility] Scheduling Office: [phone] --[address] [place] [address]. Please read below carefully for your personalized [...] Procedures: - YOU MUST HAVE A RESPONSIBLE OIL FIELD TESTER TAKE YOU HOME. A MAGNETIC TESTER OR WAGE AND SALARY ADMINISTRATOR CANNOT BE MADE A RESPONSIBLE OIL FIELD TESTER. - We recommend that a responsible person stays with you overnight to take care of you. - You cannot stay in a hotel alone after outpatient surgery. You will not be permitted to have yoursurgery, if you do not have someone to take care of you. Arrival Time for Surgery: - To obtain your arrival time for surgery, call your physician's office the day before your surgery. - If your surgery is scheduled for Saturday, call the Saturday before. Your surgeon s residential treatment staff will tell you what time to call the office. - If you have not reached the departmental residential treatment staff by 5 P.M., call [phone] after 5 P.M. the day before your surgery. Please be aware that emergency situations arise, which may delay or change your surgical time. If this happens, we will notify you as soon as possible and regret any inconvenience. If you already have an Advance Directive, please fax a copy to [phone] or email to for it to be added to your chart. If you do not have an Advance Directive, you can find the appropriate form and more information at [email or web address]. We recommend that youcomplete the Advance Directive form found on the website and bring it with you the day of your surgery. It can be witnessed and scanned into your chart that day. documented in this encounterJ.W. Ruby Memorial Hospital11-29-2023 Miscellaneous Notes* Telephone Encounter - Leatha Ignacio RN - 07/24/2023 9:24 AM EST Received call back from patient's procurement cost coordinator. Recommend holding methotrexate 07/28 and resuming 08/04. Patient notified. Leatha Ignacio RN July 24, 2023 9:25 AM documented in this encounterJ.W. Ruby Memorial Hospital11-28-2023 Nurse Note* Clarissa Tang LPN - 07/23/2023 12:31 PM EST Reviewed and confirmed with patient that there were no changes in the the nursing assessment and vitals that were completed on 07/23/2023 during previous provider appointment. Clarissa Tang LPN documented in this encounterJ.W. Ruby Memorial Hospital11-28-2023 History of Present illness Narrative* Dante Rehmna MD - 07/23/2023 12:00 PM EST Radiation Oncology - New Patient/Consult Note PATIENT NAME: Minal Caputo PATIENT REQUESTING PROVIDER: Heather Castillo MD DIAGNOSIS: 67 year old female with infiltrating lobular carcinoma of the Left breast, centrally located, clinical stage T2N0, ER-positive (80%), KS-positive (5%), and Her2/akash not amplified, s/p biopsy. [...] FINAL DIAGNOSIS A. Breast, left, core biopsy ([id number]; 06/19/2023): ---Invasive lobular carcinoma, preliminary Angela grade 1 (of 3), measuring at least 4.5 mm in greatest dimension. ---Please see comment. ER: POSITIVE (80%, strong) KS: POSITIVE (5%, moderate) HER2 IHC: NEGATIVE (0) [...] 68 Difficulty with anesthesia No Family History BUNCH BREAKER HISTORY: OB History T1 L0 SAB0 IAB0 [...] imaging findings, and pathology results were reviewed indetail with Minal Caputo and her family. The [...] radiotherapy were reviewed. We will see her againafter surgery to review the pathology and finalize [...] 5 - High cc: Rita Amanda MD ([facility]) [facility] [place] [address] Heather Castillo [id number] [facility] [id number] documented in this encounterJ.W. Ruby Memorial Hospital11-28-2023 History of Present illness Narrative* Nell Rosa, (R) - 07/23/2023 10:00 AM EST Radiology Service Progress Note PATIENT NAME: Minal Caputo DATE OF SERVICE: July 23, 2023 TIME: 11:48 AM PATIENT IDENTITY VERIFICATION COMPLETED USING TWO (2) IDENTIFIERS: Name and Date of confirmedby patient verbally. FALL SCREENING: Has the patient [...] 23, 2023 11:48 AM documented in this encounterJ.W. Ruby [facility] Hospital11-22-2023 Miscellaneous Notes* Addendum Note - Leatha Ignacio RN - 07/17/2023 12:12 PM ESTAddended by: LEATHA IGNACIO on: 07/17/2023 12:12 PM Modules accepted: Orders documented in this encounterJ.W. [facility]11-17-2023 Miscellaneous Notes* Telephone Encounter - Milton Mcintosh RN - 07/12/2023 10:37 AM EST July 12, 2023 Message sent to [employer], patient is interested in having done. Milton Mcintosh RN * Telephone Encounter - Milton Mcintosh RN - 07/12/2023 10:25 AM EST July 12, 2023 Requested imaging/path slides from: left detailed message requesting a callback for imaging [facility]AC[facility] [address] [place] [address] Pathology Request date: July 12, 2023 FEDEX#: [id number] breast imaging requested [facility] [address] [place] [address] * Telephone Encounter - Milton Mcintosh RN - 07/12/2023 10:08 AM EST July 12, 2023 Spoke with orlando Lynn via telephone and obtained the following information pertinent to upcoming appointment. Diagnosis: Final Pathologic Diagnosis Left breast core biopsy: INVASIVE MAMMARY CARCINOMA. Histologic [place] grade 2 (tubule formation 3, nuclear pleomorphism 2, mitotic activity 1; total score 6/9). See comments. Date of Diagnosis: 06/19/23 Institution/Location of Diagnosis: [facility] [address] [place] [address] Referring Physician: Rita Amanda MD Breast MRI: [...] Cough: no Swelling in leg(s): no Ashkenazi Scientologist Decent? No History of genetic testing? No genetic testing done, patient is interested Message was sent to Jesus Otoole to add patient for an appointment. Notes/Comments: Milton Mcintosh RN July 12, 2023 documented in this encounterJ.W. Ruby [facility] Hospital06-16-2023 Miscellaneous Notes* Telephone Encounter - Leslie Forrester MA - 02/08/2023 8:53 AM EDT Greetings, Dr. Son reached out to Dr. Crow Sousa. He used to be with us as a total joint replacement doctor and moved his practice over to [facility]. He is willing to see you and do evaluation. His office number is [phone]. His office address is [address] [place] [address]. He does also go to a office on [address] in [place] just confirm with them what office you will be at. Let us know if there is anything else we can help you with. Stay safe and well. Thank you Leslie with Dr. Son documented in this encounterJ.W. Ruby [facility] Hospital06-07-2023 History and physical note * Elida Craft PA-C - 01/30/2023 5:51 AM EDT Patient notes a recent ED visit. Her heart rate has been ranging from 23-127 bpm. She has been trying to get in to cardiology but was told there were no appointments until July 2023. I have called her inbound sales manager's office and have secured her an appointment for next week. She is aware of the appointment. Message sent to PACC schedulers to cancel virtual PACC appointment and reschedule to an in-person appointment. Patient also provided schedulers number. Thank you, Elida Craft PA-C PACC documented in this encounterJ.W. Ruby [facility] Hospital06-07-2023 Miscellaneous Notes* Telephone Encounter - Elida Craft PA-C - 01/30/2023 5:48 AM EDT Rigoberto, Please cancel her virtual PACC appointment and reschedule her for an in-person PACC visit due to her significant heart rate variations of 23-127 bpm. I have helped secure her a cardiology appointment prior to her procedure. DOS: 02/11/2023 Thank you, Elida Craft PA-C PACC documented in this [facility]04-14-2023 Evaluation note* Encounter Date Diagnosis Assessment Notes Treatment Notes Treatment Clinical Notes Nov,3 Bronchitis (ICD-10 - J40) Acute bronchitis material was printed Drink plenty fluids, get plenty of rest. Take the doxycycline as prescribed until gone. Continue home medications as prescribed. Follow-up with your family physician if no improvement in 2 to 3 days. Go to the ER for worsening symptoms or concerns. [employer] Other 04-10-2023 Evaluation note* Encounter Date Diagnosis [...] treatment plan. Patient left in stable condition. [employer] Other 01-25-2023 Instructions* Patient Instructions* Nell Trujillo APRN.CNP - 09/19/2022 7:13 AM EST Images from the original note were not included. Thank you for seeing me in clinic today. As we discussed, my recommendations are as follows: 1.EGD 2.Colonoscopy 3.Continue Nexium If you have any questions about the above treatment plan, please do not hesitate to call the officeor send me a [employer] message. Bowel Preparation Instructions for: Golytely, Nulytely, [...] If you do not have a responsible tanker truck driver (family member or friend) with you [...] your exam. 2 07/2019 documented in this encounterJ.W. Ruby [facility] Hospital01-25-2023 History and physical note * Nell Trujillo [...] Abs Lymph 1.00 - 4.00 k/uL 3.81 [place]% % 7.9 Abs [place] <0.87 k/uL 0.68 Eosin% % 2.4 Abs [...] daily I spent more than 30 minutes [id number] with the patient and over half the time was devoted to counseling and/or coordination of care. This note was dictated using Aisle50 speech recognition software and may contain some errors that were a result of the program not accurately transcribing what was dictated. Nell Trujillo APRN.NEY documented in this encounterJ.W. Ruby [facility] Hospital01-12-2023 History of Present illness Narrative* Micah Son DO - 09/06/2022 3:10 PM ESTAssociated Order(s): Large Joint Arthro/Inj: L hip joint Post-Procedure Diagnose(s): Primary osteoarthritis of left hip Patient presents for a left hip injection. Large Joint Arthro/Inj: L hip joint Informed Consent Consent Obtained: Verbal [place] Protocol A moment to CARE was completed. [...] Micah Son DO 09/06/2022 documented in this encounterJ.W. Ruby [facility] Hospital10-23-2022 Evaluation note* Encounter Date Diagnosis Assessment Notes Treatment Notes Treatment Clinical Notes May, Cough (ICD-10 - R05.9) May, COVID-19 (ICD-10 - U07.1) Today you tested positive for the COVID virus. This mean you need to follow all CDC quarantine guidelines found at coronavirus.[place].go v. It is important to rest, increase [...] weeks for the cough to go away [employer] Other 08-09-2022 History of Present illness Narrative* [...] infection or early failure. documented in this encounterJ.W. Ruby [facility] Hospital08-04-2022 History of Present illness Narrative* Kristin Franz [...] 29, 2022 4:31 PM documented in this encounterJ.W. Ruby [facility] Hospital08-01-2022 Miscellaneous Notes* Telephone Encounter - Nikko Brown - 03/26/2022 12:00 PM EDT Physical therapy order sent to [facility] via fax. documented in this encounterJ.W. Ruby [facility] Hospital07-29-2022 History of Present illness Narrative* Nayan Yan, DO - 03/23/2022 3:42 PM EDT SERVICE [...] 2022 TIME: 3:48 PM documented in this encounterJ.W. Ruby [facility] Hospital07-25-2022 Instructions* Patient Instructions* Alberto Monsalve DO - 03/19/2022 4:28 PM EDT Do not take Naproxen or other NSAIDs while taking the oral steroid Medrol dose pack. Call [phone] to schedule appointment with Spine Surgery. documented in this encounterJ.W. Ruby [facility] Hospital07-25-2022 History of Present illness Narrative* Alberto Monsalve DO - 03/19/2022 3:37 PM EDT Images from the original note were not included. [facility] [...] in local hospital 03/13/22 and transferred to [facility] on 03/14/22. Since then the right arm [...] cancer: denies PSH: BL TKA 03/31/18 Dr. Trevino See below Social Alcohol: occasional Tobacco: denies [...] 5/5 on the left. 3/5 right hand sample wrapper strength, 5/5 on the left Business Development Director strength significantly weaker on right compare to le 5/5 bilateral shoulder abduction, elbow flexion, elbow extension, wrist extension, wrist flexion, digit abduction, sample wrapper strength. SENSORY: sensation intact to light touch [...] disc disorder with radiculopathy (primary encounter diagnosis) R29.892 Weakness of right upper extremity ASSESSMENT: Minal [...] which included preparing to see the patient, [id number] patient care, completing clinical documentation, obtaining and/or reviewing separately obtained history, performing a medically appropriate examination, counseling and educating the pat ient/family/caregiver, ordering medications, tests, or procedures, independently interpreting results (not separately reported), and communicating results to the patient/family/caregiver. SIGNATURE: Alberto Monsalve DO PATIENT NAME: Minal Caputo DATE: March 19, 2022 TIME: 3:37 PM documented in this encounterJ.W. Ruby [facility] Hospital07-20-2022 History of Past illness Narrative* Problem Noted Date Resolved Date Hypertensive urgency 03/14/2022 03/15/2022 AF (paroxysmal atrial fibrillation) 12/08/2021 03/14/2022 documented as of this encounter (statuses as of 03/15/2022) [facility] of Past illness Narrative* Problem Noted Date Resolved Date Hypertensive urgency 03/14/2022 03/15/2022 AF (paroxysmal atrial fibrillation) 12/08/2021 03/14/2022 documented as of this encounter (statuses as of 03/23/2022) [facility] of Past illness Narrative* Problem Noted Date Resolved Date Hypertensive urgency 03/14/2022 03/15/2022 AF (paroxysmal atrial fibrillation) 12/08/2021 03/14/2022 documented as of this encounter (statuses as of 03/23/2022) [facility] of Past illness Narrative* Problem Noted Date Resolved Date Hypertensive urgency 03/14/2022 03/15/2022 AF (paroxysmal atrial fibrillation) 12/08/2021 03/14/2022 documented as of this encounter (statuses as of 03/26/2022) [facility] of Past illness Narrative* Problem Noted Date Resolved Date Hypertensive urgency 03/14/2022 03/15/2022 AF (paroxysmal atrial fibrillation) 12/08/2021 03/14/2022 documented as of this encounter (statuses as of 03/30/2022) [address]20-2022 History of Past illness Narrative* Problem Noted Date Resolved Date Hypertensive urgency 03/14/2022 03/15/2022 AF (paroxysmal atrial fibrillation) 12/08/2021 03/14/2022 documented as of this encounter (statuses as of 04/03/2022) [address]20-2022 History of Past illness Narrative* Problem Noted Date Resolved Date Hypertensive urgency 03/14/2022 03/15/2022 AF (paroxysmal atrial fibrillation) 12/08/2021 03/14/2022 documented as of this encounter (statuses as of 04/03/2022) [address]20-2022 History of Past illness Narrative* Problem Noted Date Resolved Date Hypertensive urgency 03/14/2022 03/15/2022 AF (paroxysmal atrial fibrillation) 12/08/2021 03/14/2022 documented as of this encounter (statuses as of 04/05/2022) [address]20-2022 History of Past illness Narrative* Problem Noted Date Resolved Date Hypertensive urgency 03/14/2022 03/15/2022 AF (paroxysmal atrial fibrillation) 12/08/2021 03/14/2022 documented as of this encounter (statuses as of 09/06/2022) [address]20-2022 History of Past illness Narrative* Problem Noted Date Resolved Date Hypertensive urgency 03/14/2022 03/15/2022 AF (paroxysmal atrial fibrillation) 12/08/2021 03/14/2022 documented as of this encounter (statuses as of 09/19/2022) [address]20-2022 History of Past illness Narrative* Problem Noted Date Resolved Date Hypertensive urgency 03/14/2022 03/15/2022 AF (paroxysmal atrial fibrillation) 12/08/2021 03/14/2022 documented as of this encounter (statuses as of 01/30/2023) [address]20-2022 History of Past illness Narrative* Problem Noted Date Resolved Date Hypertensive urgency 03/14/2022 03/15/2022 AF (paroxysmal atrial fibrillation) 12/08/2021 03/14/2022 documented as of this encounter (statuses as of 01/30/2023) [address]20-2022 History of Past illness Narrative* Problem [...] of this encounter (statuses as of 02/08/2023) [facility] of Past illness Narrative* Problem Noted [...] of this encounter (statuses as of 07/12/2023) [facility] of Past illness Narrative* Problem Noted [...] of this encounter (statuses as of 07/17/2023) [address]20-2022 History of Past illness Narrative* Problem [...] of this encounter (statuses as of 07/24/2023) [facility] Narrative* Problem Noted [...] of this encounter (statuses as of 07/24/2023) [facility] Past illness Narrative* Problem Noted [...] of this encounter (statuses as of 07/24/2023) [facility] of Past illness Narrative* Problem Noted [...] of this encounter (statuses as of 07/26/2023) [facility] Narrative* Problem Noted [...] of this encounter (statuses as of 07/30/2023) [facility] illness Narrative* Problem Noted [...] of this encounter (statuses as of 08/07/2023) [facility] Narrative* Problem Noted [...] of this encounter (statuses as of 08/09/2023) [address]20-2022 History of Past illness Narrative* Problem [...] of this encounter (statuses as of 09/26/2023) [address]20-2022 History of Past illness Narrative* Problem [...] of this encounter (statuses as of 09/27/2023) [facility] Narrative* Problem Noted [...] of this encounter (statuses as of 10/08/2023) [address]20-[address]22 History of Past illness Narrative* Problem [...] of this encounter (statuses as of 10/10/2023) [facility] Narrative* Problem Noted [...] of this encounter (statuses as of 10/14/2023) [facility] Narrative* Problem Noted [...] of this encounter (statuses as of 10/22/2023) [facility] Narrative* Problem Noted [...] of this encounter (statuses as of 10/22/2023) [facility] Narrative* Problem Noted [...] of this encounter (statuses as of 10/23/2023) [facility] Narrative* Problem Noted [...] of this encounter (statuses as of 10/23/2023) [facility] Narrative* Problem Noted [...] of this encounter (statuses as of 10/23/2023) [address]20-[address]22 History of Past illness Narrative* Problem [...] of this encounter (statuses as of 10/24/2023) [facility] Narrative* Problem Noted [...] of this encounter (statuses as of 10/24/2023) [facility] Narrative* Problem Noted [...] of this encounter (statuses as of 10/24/2023) [address]20-[address]22 History of Past illness Narrative* Problem [...] of this encounter (statuses as of 10/24/2023) [facility] Narrative* Problem Noted [...] of this encounter (statuses as of 11/05/2023) [facility] Narrative* Problem Noted [...] of this encounter (statuses as of 11/05/2023) [facility] Narrative* Problem Noted [...] of this encounter (statuses as of 11/06/2023) [facility] Narrative* Problem Noted [...] of this encounter (statuses as of 11/06/2023) [facility] of Past [facility] Narrative* Problem Noted Date Diagnosed Date Resolved Date Atrial tachycardia, paroxysmal 03/14/2022 02/05/2023 Last Assessment & Plan: Assessment: patient states that she had AFIB in past-- on Metoprolol Follows with Dr. Dao Oritz HR 25-120 at home at [facility], denies chest pain or palpitations RRR on exam today Hypertensive urgency 03/14/2022 022 AF (paroxysmal atrial fibrillation) 12/08/2021 03/14/2022 documented as of this encounter (statuses as of 11/11/2023) [facility] Narrative* Problem Noted [...] of this encounter (statuses as of 11/12/2023) [facility] Narrative* Problem Noted [...] of this encounter (statuses as of 11/12/2023) [facility] Narrative* Problem Noted [...] of this encounter (statuses as of 11/12/2023) [facility] Narrative* Problem Noted [...] as of this encounter (statuses as of 11/26/2023) [facility] Narrative* Problem Noted [...] as of this encounter (statuses as of 11/30/2023) [facility] Narrative* Problem Noted [...] as of this encounter (statuses as of 12/04/2023) [facility] Narrative* Problem Noted [...] as of this encounter (statuses as of 12/04/2023) [facility] Narrative* Problem Noted [...] as of this encounter (statuses as of 12/04/2023) [facility] Narrative* Problem Noted [...] as of this encounter (statuses as of 12/04/2023) [facility] Narrative* Problem Noted [...] as of this encounter (statuses as of 12/10/2023) [facility] Narrative* Problem Noted [...] as of this encounter (statuses as of 12/10/2023) [facility] Narrative* Problem Noted [...] as of this encounter (statuses as of 12/13/2023) [facility] History of Present illness Narrative* Micah Son, [...] Correspondence will be shared today via the [facility] electronic health record or through regular [...] hip joint Informed Consent Consent Obtained: Verbal [place] Protocol A moment to CARE was completed. [...] applicable Micah Son DO documented in this encounterJ.W. Ruby [facility] Hospital04-25-2022 Miscellaneous Notes* Telephone Encounter - Kristin Berry [...] Bandages [Other], and Sulfa (Sulfonamide Antibiotics) (home) [phone] (cell) Reason for call: patient checking to see if provider received disk with images from [facility] in [facility]. Please call to discuss if hip injections would be beneficial. Has appointment for injection this coming Tuesday 12/19 and wants to know if she should keep this appointment. Patient last appointment: Visit date not found The patients preferred pharmacy has been captured for this encounter? no Jaye Sauer documented in this encounterJ.W. Ruby [facility]04-15-2022 History of Present illness Narrative* Janine Canales - 12/08/2021 9:36 AM EDT EVENT MONITOR DISPOSABLE PATCH INSTRUCTIONS Patient Name: Minal Caputo Clinic Number: [id number] Skin prepped and cleansed with alcohol Patch secured to prepped area Monitor Activated Serial #: [id number] Patient Instructed: 1.) Prescribed order timeframe 2.) Bathing guidelines 3.) Usage of event button and diary documentation 4.) Return of monitor at the end of prescribed order 5.) Call with problems [phone] or [phone]. [phone] Patient expresses a good understanding of instructions Janine Canales documented in this encounterJ.W. Ruby [facility]04-15-2022 History of Present illness Narrative* John Dc MD - 12/08/2021 8:15 AM EDT Images from the original note were not included. [facility] [place] Department of Cardiovascular Medicine SECTION OF CARDIAC PACING and ELECTROPHYSIOLOGY OUTPATIENT VISIT DATE December 08, 2021 OUTPATIENT VISIT TYPE NEW PRIMARY CARE PHYSICIAN: Rita Amanda MD ([facility]) [address] [place] [id number] REFERRING PHYSICIAN: SELF CHIEF COMPLAINT: Self referral [...] Frequent thirst-No. Leo Ballard RN PHYSICAL EXAMINATION: [facility] 08/26/2006 (Approximate) Physical Exam Constitutional: General: She [...] INFORMATION: John Dc MD documented in this encounterJ.W. Ruby [facility] Hospital11-12-2021 Evaluation note* Encounter Date Diagnosis Assessment Notes [...] Patient care instructions given in writting by [facility] Care At Home document. [employer] Other 11-05-2021 NoteAdmission Information Admitting Physician - Terrell IVY MD Consulting Physician - Judy Pierre MD Admitting Diagnoses: obstructing kidney stone Hospital Course Significant Findings 65-year-old white female past medical history of obesity, COPD, hypertension, GERD and nephrolithiasis who was admitted as direct admission for possible A. fib. Patient was scheduled to have cystoscopy and possible stent for obstructing kidney stone. EKG read as having A. fib so she was directed [facility] for admission. Patient in the EKG [...] Within 5 to 7 days [facility] [address]- Business (1) Additional Instructions: Patient Education Kidney Stones, [id number] [1] Admission H & P; Terrell IVY MD 06/28/2021 16:34 [facility]Comment [facility]:Result Comment: Electronically Signed By: Terrell IVY MD\.br\Date and Time Signed: 06/30/21 14:[id number] NoteBasic Information Admit Date/Time:06/28/2021 16:05 Chief Complaint aFIB History of Present Illness 65-year-old white female past medical history of obesity, COPD, hypertension, GERD and nephrolithiasis who was admitted as direct admission for possible A. fib. Patient was scheduled to have cystoscopy and possible stent for obstructing kidney stone. EKG read as having A. fib so she was directed [facility] for admission. Patient in the EKG [...] 16:27:00 EDT,06/28/21 16:27:00 ED (more content not included)...[facility]:Result Comment: Electronically Signed By: BIJU HATHAWAY, Terrell\.br\Date and Time Signed: 06/28/21 16:[id number] Note [id number]:127[facility]* Diagnosis AF (paroxysmal atrial fibrillation) (HCC)- Primary Atrial fibrillation documented in this encounter [facility]* Diagnosis Paroxysmal atrial fibrillation (HCC)- Primary Atrial fibrillation documented in this encounter [facility]* Diagnosis Primary osteoarthritis of left hip- Primary Primary localized osteoarthrosis, pelvic region and thigh documented in this encounter [facility]* Diagnosis Right arm weakness- Primary Other musculoskeletal symptoms referable to limbs [facility] Neck pain- Primary Cervicalgia [facility] Diagnosis Primary osteoarthritis of left hip- Primary Primary localized osteoarthrosis, pelvic region and thigh documented in this encounter [facility]* Diagnosis Thyroid nodule Nontoxic uninodular goiter [facility] Diagnosis Thyroid nodule- Primary Nontoxic uninodular goiter [facility]* Diagnosis BMI 50.0-59.9, adult (HCC)- Primary Body Mass Index 50.0-59.9, adult Primary osteoarthritis of left hip Primary localized osteoarthrosis, pelvic region and thigh Type 2 diabetes mellitus with hyperglycemia, unspecified whether nursing home insulin use (HCC) documented in this encounter [facility]* Diagnosis Cervical disc disorder with radiculopathy- Primary Brachial neuritis or radiculitis nos Weakness of right upper extremity Other musculoskeletal symptoms referable to limbs documented in this encounter [facility] HospitalEvaluation noteNo assessment information availablePomerene Hospital Ctr Work Phone: evaluation note* Diagnosis Primary osteoarthritis of left hip- Primary Primary localized osteoarthrosis, pelvic region and thigh [facility] Diagnosis Gastroesophageal reflux disease, unspecified whether esophagitis present- Primary Screening for colon cancer Special screening for malignant neoplasms, colon Hiatal hernia Diaphragmatic hernia without mention of obstruction or gangrene [facility] Diagnosis Onset Date Resolution Status Multiple thyroid nodules acu te [facility] Work Phone: evaluation note* Diagnosis Malignant neoplasm of left female breast, unspecified estrogen receptor status, unspecified site of breast (HCC)- Primary [facility] Diagnosis Malignant neoplasm of left female breast, unspecified estrogen receptor status, unspecified site of breast (HCC) Invasive lobular carcinoma of breast in female (HCC) [facility] Diagnosis Invasive lobular carcinoma of breast in female (HCC)- Primary Invasive lobular carcinoma of breast in female (HCC) [facility] Diagnosis Preop examination- Primary Preoperative examination, [...] in female (HCC) [facility] Diagnosis Invasive lobular carcinoma of breast in female (HCC) Malignant neoplasm of left breast in female, estrogen receptor positive, unspecified site of breast (HCC) Pre-op testing Preoperative examination, unspecified 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)- Primary S/P left mastectomy Acquired absence of breast and nipple Invasive lobular carcinoma of breast in female (HCC) [facility] Preoperative clearance- Primary Preoperative [...] in female (HCC) [facility] Right non-suppurative otitis media- Primary Nonsuppurative otitis media, not specified as acute or chronic Acute recurrent sinusitis, unspecified location Acute rhinitis Acute nasopharyngitis (common cold) [facility] Invasive lobular carcinoma of breast in female (HCC) [facility] Invasive lobular carcinoma of breast in female (HCC)- Primary [facility] Diagnosis Invasive lobular carcinoma of breast in female (HCC) [facility] Diagnosis Invasive lobular carcinoma of breast in female (HCC)- Primary [facility] Diagnosis Invasive lobular carcinoma of breast in female (HCC)- Primary [facility] Diagnosis Invasive lobular carcinoma of breast in female (HCC)- Primary Post-operative state Other postprocedural status [facility] Diagnosis ASCVD (arteriosclerotic cardiovascular disease) Unspecified cardiovascular disease [facility] Diagnosis Invasive lobular carcinoma of breast in female (HCC)- Primary [facility] Diagnosis Invasive lobular carcinoma of breast in female (HCC) [facility] Diagnosis Invasive lobular carcinoma of breast in female (HCC)- Primary [facility] Diagnosis 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 (CMS-HCC)- Primary [facility] Diagnosis Chest pain, unspecified type- Primary Invasive lobular carcinoma of breast in female (HCC) Generalized edema Edema [facility] Diagnosis 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 (CMS-HCC)- Primary Diuresis Polyuria Hospital discharge follow-up Other follow-up examination Diastolic dysfunction with acute on chronic heart failure (CMS-HCC) Primary hypertension Unspecified essential hypertension Primary invasive malignant neoplasm of female breast, left (CMS-HCC) [facility] Diagnosis Chest pain, unspecified type Invasive lobular carcinoma of breast in female (HCC) Generalized edema Edema [facility] Invasive lobular carcinoma of breast in female (HCC)- Primary [facility] Diagnosis Intertrigo- Primary Other specified erythematous condition Jessica infection Candidiasis of unspecified site [facility] Diagnosis Invasive lobular carcinoma of breast in female (HCC)- Primary [facility] Diagnosis Invasive lobular carcinoma of breast in female (HCC) [facility] Diagnosis Invasive lobular carcinoma of breast in female (HCC)- Primary Jessica infection Candidiasis of unspecified site [facility] Diagnosis Invasive lobular carcinoma of breast in female (HCC)- Primary [facility] Diagnosis Invasive lobular carcinoma of breast in female (HCC)- Primary [facility] Diagnosis Invasive lobular carcinoma of breast in female (HCC) [facility] Diagnosis Invasive lobular carcinoma of breast in female (HCC)- Primary Jessica infection Candidiasis of unspecified site [facility] Diagnosis Invasive lobular carcinoma of breast in female (HCC) Jessica infection Candidiasis of unspecified site [facility] Diagnosis Invasive lobular carcinoma of breast in female (HCC)- Primary S/P mastectomy, left [facility] Diagnosis Invasive lobular carcinoma of breast in female (HCC)- Primary [facility] Diagnosis Invasive lobular carcinoma of breast in female (HCC) [facility] Diagnosis Invasive lobular carcinoma of breast in female (HCC)- Primary Cutaneous abscess of groin Cellulitis and abscess of trunk [facility] Diagnosis Invasive lobular carcinoma of breast in female (HCC)- Primary Cutaneous abscess of groin Cellulitis and abscess of trunk [facility] Diagnosis Invasive lobular carcinoma of breast in female (HCC)- Primary Mass of right breast, unspecified quadrant Other abnormal and inconclusive findings on diagnostic imaging of breast Jessica infection Candidiasis of unspecified site Diverticulitis Diverticulitis of colon (without mention of hemorrhage) Cutaneous abscess of groin Cellulitis and abscess of trunk [facility] Diagnosis Mass of right breast, unspecified quadrant Invasive lobular carcinoma of breast in female (HCC) Other abnormal and inconclusive findings on diagnostic imaging of breast Elevated transaminase level Nonspecific elevation of levels of transaminase or lactic acid dehydrogenase (LDH) [facility] Diagnosis Invasive lobular carcinoma of breast in female (HCC)- Primary [facility] Diagnosis Invasive lobular carcinoma of breast in female (HCC)- Primary [facility] Diagnosis Invasive lobular carcinoma of breast in female (HCC)- Primary [facility] Diagnosis Invasive lobular carcinoma of breast in female (HCC) [facility] Diagnosis Invasive lobular carcinoma of breast in female (HCC)- Primary Body mass index (BMI) 50.0-59.9, adult ([facility]) Encounter for screening for osteoporosis Special screening for osteoporosis Asymptomatic postmenopausal status [facility] Diagnosis Combined forms of age-related cataract of both eyes- Primary Other and combined forms of senile cataract [facility] Diagnosis Invasive lobular carcinoma of breast in female (HCC)- Primary [facility] Diagnosis Pre-op evaluation- Primary Preoperative examination, unspecified Atrial tachycardia, paroxysmal ([facility]) Paroxysmal supraventricular tachycardia Primary hypertension Unspecified essential hypertension Mixed hyperlipidemia Gastroesophageal reflux disease, unspecified whether esophagitis present Morbid obesity with BMI of 50.0-59.9, adult ([facility]) Morbid obesity PETERSON (dyspnea on exertion) Other dyspnea and respiratory abnormality Preop examination- Primary Preoperative examination, unspecified Mixed [...] site, unspecified whether rheumatoid factor present (HCC) Preoperative clearance- Primary Preoperative examination, unspecified Mixed hyperlipidemia Primary hypertension Unspecified essential hypertension Palpitations PETERSON (dyspnea on exertion) Other dyspnea and respiratory abnormality Disorder of mitral valve Mitral valve disorders Morbid obesity (HCC) Morbid obesity Edema, unspecified type 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), idiopathic Rheumatoid arthritis, involving unspecified site, unspecified whether rheumatoid factor present ([facility]) Invasive lobular carcinoma of breast in female ([facility])- Primary Combined forms of age-related cataract of both eyes Other and combined forms of senile cataract Combined forms of age-related cataract of both eyes Other and combined forms of senile cataract [facility] Diagnosis Pre-op evaluation- Primary Preoperative examination, unspecified Atrial tachycardia, paroxysmal (HCC) Paroxysmal supraventricular tachycardia Primary hypertension Unspecified essential hypertension Mixed hyperlipidemia Gastroesophageal reflux disease, unspecified whether esophagitis present Morbid obesity with BMI of 50.0-59.9, adult ([facility]) Morbid obesity PETERSON (dyspnea on exertion) Other dyspnea and respiratory abnormality Preop examination- Primary Preoperative examination, unspecified Mixed [...] site, unspecified whether rheumatoid factor present (HCC) Preoperative clearance- Primary Preoperative examination, unspecified Mixed [...] Invasive lobular carcinoma of breast in female ([facility])- Primary Body mass index (BMI) 50.0-59.9, adult (HCC) Combined forms of age-related cataract of both eyes Other and combined forms of senile cataract Combined forms of age-related cataract of both eyes Other and combined forms of senile cataract documented in this encounter [facility] note* Diagnosis Pre-op evaluation- Primary Preoperative examination, unspecified Atrial tachycardia, paroxysmal (HCC) Paroxysmal supraventricular tachycardia Primary hypertension Unspecified essential hypertension Mixed hyperlipidemia Gastroesophageal reflux disease, unspecified whether esophagitis present Morbid obesity with BMI of 50.0-59.9, adult (HCC) Morbid obesity PETERSON (dyspnea on exertion) Other dyspnea and respiratory abnormality Preop examination- Primary Preoperative examination, unspecified Mixed hyperlipidemia Primary hypertension Unspecified essential hypertension Palpitations PETERSON (dyspnea on exertion) Other dyspnea and respiratory abnormality Gastroesophageal reflux disease, unspecified whether esophagitis present Disorder of mitral valve Mitral valve disorders Morbid obesity (HCC) Morbid obesity Edema, unspecified type 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), idiopathic Rheumatoid arthritis, involving unspecified site, unspecified whether rheumatoid factor present ([facility]) Preoperative clearance- Primary Preoperative examination, unspecified Mixed hyperlipidemia Primary hypertension Unspecified essential hypertension Palpitations PETERSON (dyspnea on exertion) Other dyspnea and respiratory abnormality Disorder of mitral valve Mitral valve disorders Morbid obesity (HCC) Morbid obesity Edema, unspecified type 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), idiopathic Rheumatoid arthritis, involving unspecified site, unspecified whether rheumatoid factor present ([facility]) Invasive lobular carcinoma of breast in female ([facility])- Primary Combined forms of age-related cataract of both eyes Other and combined forms of senile cataract Combined forms of age-related cataract of both eyes Other and combined forms of senile cataract documented in this encounter [facility] note* Diagnosis Pre-op evaluation- Primary Preoperative examination, unspecified Atrial tachycardia, paroxysmal (HCC) Paroxysmal supraventricular tachycardia Primary hypertension Unspecified essential hypertension Mixed hyperlipidemia Gastroesophageal reflux disease, unspecified whether esophagitis present Morbid obesity with BMI of 50.0-59.9, adult ([facility]) Morbid obesity PETERSON (dyspnea on exertion) Other dyspnea and respiratory abnormality Preop examination- Primary Preoperative examination, unspecified Mixed [...] site, unspecified whether rheumatoid factor present (HCC) Preoperative clearance- Primary Preoperative examination, unspecified Mixed hyperlipidemia Primary hypertension Unspecified essential hypertension Palpitations PETERSON (dyspnea on exertion) Other dyspnea and respiratory abnormality Disorder of mitral valve Mitral valve disorders Morbid obesity (HCC) Morbid obesity Edema, unspecified type 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), idiopathic Rheumatoid arthritis, involving unspecified site, unspecified whether rheumatoid factor present (HCC) Multiple thyroid nodules- Primary Nontoxic multinodular goiter Combined forms of age-related cataract of both eyes Other and combined forms of senile cataract Combined forms of age-related cataract of both eyes Other and combined forms of senile cataract [facility] Diagnosis Pre-op evaluation- Primary Preoperative examination, unspecified Atrial tachycardia, paroxysmal (HCC) Paroxysmal supraventricular tachycardia Primary hypertension Unspecified essential hypertension Mixed hyperlipidemia Gastroesophageal reflux disease, unspecified whether esophagitis present Morbid obesity with BMI of 50.0-59.9, adult (HCC) Morbid obesity PETERSON (dyspnea on exertion) Other dyspnea and respiratory abnormality Preop examination- Primary Preoperative examination, unspecified Mixed [...] site, unspecified whether rheumatoid factor present (HCC) Preoperative clearance- Primary Preoperative examination, unspecified Mixed [...] lobular carcinoma of breast in female (HCC) Combined forms of age-related cataract of both eyes Other and combined forms of senile cataract Combined forms of age-related cataract of both eyes Other and combined forms of senile cataract [facility] Diagnosis Pre-op evaluation- Primary Preoperative examination, unspecified Atrial tachycardia, paroxysmal (HCC) Paroxysmal supraventricular tachycardia Primary hypertension Unspecified essential hypertension Mixed hyperlipidemia Gastroesophageal reflux disease, unspecified whether esophagitis present Morbid obesity with BMI of 50.0-59.9, adult (HCC) Morbid obesity PETERSON (dyspnea on exertion) Other dyspnea and respiratory abnormality Preop examination- Primary Preoperative examination, unspecified Mixed [...] site, unspecified whether rheumatoid factor present (HCC) Preoperative clearance- Primary Preoperative examination, unspecified Mixed hyperlipidemia Primary hypertension Unspecified essential hypertension Palpitations PETERSON (dyspnea on exertion) Other dyspnea and respiratory abnormality Disorder of mitral valve Mitral valve disorders Morbid obesity (HCC) Morbid obesity Edema, unspecified type 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), idiopathic Rheumatoid arthritis, involving unspecified site, unspecified whether rheumatoid factor present (HCC) Pre-op evaluation- Primary Preoperative examination, unspecified Morbid obesity (HCC) Morbid obesity Multiple thyroid nodules Nontoxic multinodular goiter Pulmonary embolism, other, unspecified chronicity, unspecified whether acute cor pulmonale present (HCC) Invasive lobular carcinoma of breast in female (HCC) Primary hypertension Unspecified essential hypertension Mixed hyperlipidemia Palpitations PETERSON (dyspnea on exertion) Other dyspnea and respiratory abnormality Disorder of mitral valve Mitral valve disorders Rheumatoid arthritis, involving unspecified site, unspecified whether rheumatoid factor present (HCC) Gastroesophageal reflux disease, unspecified whether esophagitis present Combined forms of age-related cataract of both eyes Other and combined forms of senile cataract Combined forms of age-related cataract of both eyes Other and combined forms of senile cataract * Assessment & Plan Note - Mary Lou Singh APRN.CNP - 05/18/2024 8:47 AM EDTAssociated Problem(s): GERD (gastroesophageal reflux disease) Assessment: stable on Nexium * Assessment & Plan Note - Mary Lou Singh APRN.CNP - 05/18/2024 8:46 AM EDTAssociated Problem(s): RA (rheumatoid arthritis) (HCC) Assessment: sero positive RA methotrexate and folic acid Follows with Dr. Celia Lewis * Assessment & Plan Note - Mary Lou Singh APRN.CNP - 05/18/2024 8:46 AM EDTAssociated Problem(s): Disorder of mitral valve Assessment: trace mitral regurgitation per 08/2023 ECHO (+) systolic cardiac murmur * Assessment & Plan Note - Mary Lou Singh APRN.CNP - 05/18/2024 8:46 AM EDTAssociated Problem(s): PETERSON (dyspnea on exertion) Assessment: Chronic, denies any worsening from baseline Does not use any inhalers, no O2 RA at 96& Clear lungs sounds * Assessment & Plan Note - Mary Lou Singh APRN.CNP - 05/18/2024 8:46 AM EDTAssociated Problem(s): Palpitations Assessment: evaluated for possible atrial fibrillation on metoprolol Follows with Dr. John Dc ( Cardiology, Last office visit 02/05/2023) :No additional treatment is needed at this time. Pt. is currently Asymptomatic * Assessment & Plan Note - Mary Lou Singh APRN.CNP - 05/18/2024 8:44 AM EDTAssociated Problem(s): Mixed hyperlipidemia Assessment: stable on medication * Assessment & Plan Note - Mary Lou Singh APRN.CNP - 05/18/2024 8:44 AM EDTAssociated Problem(s): Primary hypertension Assessment: Stable on medication Today 145/82 To take medication morning of surgery * Assessment & Plan Note - Mary Lou Singh APRN.CNP - 05/18/2024 8:43 AM EDTAssociated Problem(s): Invasive lobular carcinoma of breast in female (HCC) Assessment: History of Left mastectomy with chemo and radiation Radiation L chest wall and regional nodes 03/03/2024-03/24/2024 . Zometa q 6 months started 04/21/2024 Arimdex 04/2024 Verzinio 04/2024 Following with oncology * Assessment & Plan Note - Mary Lou Singh APRN.CNP - 05/18/2024 8:41 AM EDTAssociated Problem(s): Pulmonary embolism (HCC) Assessment: PE 11/05/2023 was on Eliquis for 3 months * Assessment & Plan Note - Mary Lou Singh APRN.CNP - 05/18/2024 8:39 AM EDTAssociated Problem(s): Multiple thyroid nodules Assessment: Following with Dr. Mcgregor incidental finding on CT during breast cancer work up. Low risk history for thyroid CA * Assessment & Plan Note - Mary Lou Singh APRN.CNP - 05/18/2024 8:39 AM EDTAssociated Problem(s): Morbid obesity (HCC) Assessmet Body mass index is 50.81 kg/m . [facility]* Diagnosis Pre-op evaluation- Primary Preoperative examination, unspecified Atrial tachycardia, paroxysmal (HCC) Paroxysmal supraventricular tachycardia Primary hypertension Unspecified essential hypertension Mixed hyperlipidemia Gastroesophageal reflux disease, unspecified whether esophagitis present Morbid obesity with BMI of 50.0-59.9, adult (HCC) Morbid obesity PETERSON (dyspnea on exertion) Other dyspnea and respiratory abnormality Preop examination- Primary Preoperative examination, unspecified Mixed [...] site, unspecified whether rheumatoid factor present (HCC) Preoperative clearance- Primary Preoperative examination, unspecified Mixed hyperlipidemia Primary hypertension Unspecified essential hypertension Palpitations PETERSON (dyspnea on exertion) Other dyspnea and respiratory abnormality Disorder of mitral valve Mitral valve disorders Morbid obesity (HCC) Morbid obesity Edema, unspecified type 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), idiopathic Rheumatoid arthritis, involving unspecified site, unspecified whether rheumatoid factor present (HCC) Pre-op evaluation- Primary Preoperative examination, unspecified Morbid obesity (HCC) Morbid obesity Multiple thyroid nodules Nontoxic multinodular goiter Pulmonary embolism, other, unspecified chronicity, unspecified whether acute cor pulmonale present (HCC) Invasive lobular carcinoma of breast in female (HCC) Primary hypertension Unspecified essential hypertension Mixed hyperlipidemia Palpitations PETERSON (dyspnea on exertion) Other dyspnea and respiratory abnormality Disorder of mitral valve Mitral valve disorders Rheumatoid arthritis, involving unspecified site, unspecified whether rheumatoid factor present (HCC) Gastroesophageal reflux disease, unspecified whether esophagitis present Combined forms of age-related cataract of both eyes- Primary Other and combined forms of senile cataract Combined forms of age-related cataract of both eyes Other and combined forms of senile cataract Combined forms of age-related cataract of both eyes Other and combined forms of senile cataract [facility] Primary osteoarthritis of left hip Primary localized osteoarthrosis, pelvic region and thigh Pre-op evaluation- Primary Preoperative examination, unspecified Atrial tachycardia, paroxysmal (HCC) Paroxysmal supraventricular tachycardia Primary hypertension Unspecified essential hypertension Mixed hyperlipidemia Gastroesophageal reflux disease, unspecified whether esophagitis present Morbid obesity with BMI of 50.0-59.9, adult (HCC) Morbid obesity PETERSON (dyspnea on exertion) Other dyspnea and respiratory abnormality Preop examination- Primary Preoperative examination, unspecified Mixed [...] site, unspecified whether rheumatoid factor present (HCC) Preoperative clearance- Primary Preoperative examination, unspecified Mixed hyperlipidemia Primary hypertension Unspecified essential hypertension Palpitations PETERSON (dyspnea on exertion) Other dyspnea and respiratory abnormality Disorder of mitral valve Mitral valve disorders Morbid obesity (HCC) Morbid obesity Edema, unspecified type 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), idiopathic Rheumatoid arthritis, involving unspecified site, unspecified whether rheumatoid factor present (HCC) Pre-op evaluation- Primary Preoperative examination, unspecified Morbid obesity (HCC) Morbid obesity Multiple thyroid nodules Nontoxic multinodular goiter Pulmonary embolism, other, unspecified chronicity, unspecified whether acute cor pulmonale present (HCC) Invasive lobular carcinoma of breast in female (HCC) Primary hypertension Unspecified essential hypertension Mixed hyperlipidemia Palpitations PETERSON (dyspnea on exertion) Other dyspnea and respiratory abnormality Disorder of mitral valve Mitral valve disorders Rheumatoid arthritis, involving unspecified site, unspecified whether rheumatoid factor present (HCC) Gastroesophageal reflux disease, unspecified whether esophagitis present Combined forms of age-related cataract of both eyes Other and combined forms of senile cataract Combined forms of age-related cataract of both eyes Other and combined forms of senile cataract [facility], unspecified type [facility] Pre-op evaluation- Primary Preoperative examination, unspecified Atrial tachycardia, paroxysmal (HCC) Paroxysmal supraventricular tachycardia Primary hypertension Unspecified essential hypertension Mixed hyperlipidemia Gastroesophageal reflux disease, unspecified whether esophagitis present Morbid obesity with BMI of 50.0-59.9, adult (HCC) Morbid obesity PETERSON (dyspnea on exertion) Other dyspnea and respiratory abnormality Preop examination- Primary Preoperative examination, unspecified Mixed [...] site, unspecified whether rheumatoid factor present (HCC) Preoperative clearance- Primary Preoperative examination, unspecified Mixed hyperlipidemia Primary hypertension Unspecified essential hypertension Palpitations PETERSON (dyspnea on exertion) Other dyspnea and respiratory abnormality Disorder of mitral valve Mitral valve disorders Morbid obesity (HCC) Morbid obesity Edema, unspecified type 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), idiopathic Rheumatoid arthritis, involving unspecified site, unspecified whether rheumatoid factor present (HCC) Pre-op evaluation- Primary Preoperative examination, unspecified Morbid obesity (HCC) Morbid obesity Multiple thyroid nodules Nontoxic multinodular goiter Pulmonary embolism, other, unspecified chronicity, unspecified whether acute cor pulmonale present (HCC) Invasive lobular carcinoma of breast in female (HCC) Primary hypertension Unspecified essential hypertension Mixed hyperlipidemia Palpitations PETERSON (dyspnea on exertion) Other dyspnea and respiratory abnormality Disorder of mitral valve Mitral valve disorders Rheumatoid arthritis, involving unspecified site, unspecified whether rheumatoid factor present (HCC) Gastroesophageal reflux disease, unspecified whether esophagitis present Invasive lobular carcinoma of breast in female (HCC)- Primary Multiple thyroid nodules Nontoxic multinodular goiter Combined forms of age-related cataract of both eyes Other and combined forms of senile cataract Combined forms of age-related cataract of both eyes Other and combined forms of senile cataract [facility] Pre-op evaluation- Primary Preoperative examination, unspecified Atrial tachycardia, paroxysmal (HCC) Paroxysmal supraventricular tachycardia Primary hypertension Unspecified essential hypertension Mixed hyperlipidemia Gastroesophageal reflux disease, unspecified whether esophagitis present Morbid obesity with BMI of 50.0-59.9, adult (HCC) Morbid obesity PETERSON (dyspnea on exertion) Other dyspnea and respiratory abnormality Preop examination- Primary Preoperative examination, unspecified Mixed [...] site, unspecified whether rheumatoid factor present (HCC) Preoperative clearance- Primary Preoperative examination, unspecified Mixed hyperlipidemia Primary hypertension Unspecified essential hypertension Palpitations PETERSON (dyspnea on exertion) Other dyspnea and respiratory abnormality Disorder of mitral valve Mitral valve disorders Morbid obesity (HCC) Morbid obesity Edema, unspecified type 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), idiopathic Rheumatoid arthritis, involving unspecified site, unspecified whether rheumatoid factor present (HCC) Pre-op evaluation- Primary Preoperative examination, unspecified Morbid obesity (HCC) Morbid obesity Multiple thyroid nodules Nontoxic multinodular goiter Pulmonary embolism, other, unspecified chronicity, unspecified whether acute cor pulmonale present (HCC) Invasive lobular carcinoma of breast in female (HCC) Primary hypertension Unspecified essential hypertension Mixed hyperlipidemia Palpitations PETERSON (dyspnea on exertion) Other dyspnea and respiratory abnormality Disorder of mitral valve Mitral valve disorders Rheumatoid arthritis, involving unspecified site, unspecified whether rheumatoid factor present (HCC) Gastroesophageal reflux disease, unspecified whether esophagitis present Follow-up examination following surgery- Primary Follow-up examination, following unspecified surgery Combined forms of age-related cataract of both eyes Other and combined forms of senile cataract [facility] Pre-op evaluation- Primary Preoperative examination, unspecified Atrial tachycardia, paroxysmal (HCC) Paroxysmal supraventricular tachycardia Primary hypertension Unspecified essential hypertension Mixed hyperlipidemia Gastroesophageal reflux disease, unspecified whether esophagitis present Morbid obesity with BMI of 50.0-59.9, adult (HCC) Morbid obesity PETERSON (dyspnea on exertion) Other dyspnea and respiratory abnormality Preop examination- Primary Preoperative examination, unspecified Mixed [...] site, unspecified whether rheumatoid factor present (HCC) Preoperative clearance- Primary Preoperative examination, unspecified Mixed hyperlipidemia Primary hypertension Unspecified essential hypertension Palpitations PETERSON (dyspnea on exertion) Other dyspnea and respiratory abnormality Disorder of mitral valve Mitral valve disorders Morbid obesity (HCC) Morbid obesity Edema, unspecified type 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), idiopathic Rheumatoid arthritis, involving unspecified site, unspecified whether rheumatoid factor present (HCC) Pre-op evaluation- Primary Preoperative examination, unspecified Morbid obesity (HCC) Morbid obesity Multiple thyroid nodules Nontoxic multinodular goiter Pulmonary embolism, other, unspecified chronicity, unspecified whether acute cor pulmonale present (HCC) Invasive lobular carcinoma of breast in female (HCC) Primary hypertension Unspecified essential hypertension Mixed hyperlipidemia Palpitations PETERSON (dyspnea on exertion) Other dyspnea and respiratory abnormality Disorder of mitral valve Mitral valve disorders Rheumatoid arthritis, involving unspecified site, unspecified whether rheumatoid factor present (HCC) Gastroesophageal reflux disease, unspecified whether esophagitis present Invasive lobular carcinoma of breast in female (HCC)- Primary Combined forms of age-related cataract of both eyes Other and combined forms of senile cataract [facility] Diagnosis Hypertension, unspecified type [facility] Diagnosis Pre-op evaluation- Primary Preoperative examination, unspecified Atrial tachycardia, paroxysmal (HCC) Paroxysmal supraventricular tachycardia Primary hypertension Unspecified essential hypertension Mixed hyperlipidemia Gastroesophageal reflux disease, unspecified whether esophagitis present Morbid obesity with BMI of 50.0-59.9, adult (HCC) Morbid obesity PETERSON (dyspnea on exertion) Other dyspnea and respiratory abnormality Preop examination- Primary Preoperative examination, unspecified Mixed [...] site, unspecified whether rheumatoid factor present (HCC) Preoperative clearance- Primary Preoperative examination, unspecified Mixed hyperlipidemia Primary hypertension Unspecified essential hypertension Palpitations PETERSON (dyspnea on exertion) Other dyspnea and respiratory abnormality Disorder of mitral valve Mitral valve disorders Morbid obesity (HCC) Morbid obesity Edema, unspecified type 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), idiopathic Rheumatoid arthritis, involving unspecified site, unspecified whether rheumatoid factor present (HCC) Pre-op evaluation- Primary Preoperative examination, unspecified Morbid obesity (HCC) Morbid obesity Multiple thyroid nodules Nontoxic multinodular goiter Pulmonary embolism, other, unspecified chronicity, unspecified whether acute cor pulmonale present ([facility]) Invasive lobular carcinoma of breast in female ([facility]) Primary hypertension Unspecified essential hypertension Mixed hyperlipidemia Palpitations PETERSON (dyspnea on exertion) Other dyspnea and respiratory abnormality Disorder of mitral valve Mitral valve disorders Rheumatoid arthritis, involving unspecified site, unspecified whether rheumatoid factor present (HCC) Gastroesophageal reflux disease, unspecified whether esophagitis present Status post cataract surgery, left- Primary Combined forms of age-related cataract of right eye Other and combined forms of senile cataract Combined forms of age-related cataract of both eyes Other and combined forms of senile cataract [facility] Diagnosis Medicare annual wellness visit, subsequent- Primary Seropositive rheumatoid arthritis ([facility]) Hip pain, unspecified laterality Polyarthralgia Pain in joint, multiple sites [facility] Diagnosis Spinal stenosis, unspecified spinal region- Primary Seropositive rheumatoid arthritis ([facility]) Right non-suppurative otitis media Nonsuppurative otitis media, not specified as acute or chronic Primary osteoarthritis of both knees [facility]* Diagnosis Pre-op evaluation- Primary Preoperative examination, unspecified Atrial tachycardia, paroxysmal ([facility]) Paroxysmal supraventricular tachycardia Primary hypertension Unspecified essential hypertension Mixed hyperlipidemia Gastroesophageal reflux disease, unspecified whether esophagitis present Morbid obesity with BMI of 50.0-59.9, adult ([facility]) Morbid obesity PETERSON (dyspnea on exertion) Other dyspnea and respiratory abnormality Preop examination- Primary Preoperative examination, unspecified Mixed hyperlipidemia Primary hypertension Unspecified essential hypertension Palpitations PETERSON (dyspnea on exertion) Other dyspnea and respiratory abnormality Gastroesophageal reflux disease, unspecified whether esophagitis present Disorder of mitral valve Mitral valve disorders Morbid obesity (HCC) Morbid obesity Edema, unspecified type 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), idiopathic Rheumatoid arthritis, involving unspecified site, unspecified whether rheumatoid factor present ([facility]) Preoperative clearance- Primary Preoperative examination, unspecified Mixed hyperlipidemia Primary hypertension Unspecified essential hypertension Palpitations PETERSON (dyspnea on exertion) Other dyspnea and respiratory abnormality Disorder of mitral valve Mitral valve disorders Morbid obesity (HCC) Morbid obesity Edema, unspecified type 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), idiopathic Rheumatoid arthritis, involving unspecified site, unspecified whether rheumatoid factor present (HCC) Pre-op evaluation- Primary Preoperative examination, unspecified Morbid obesity (HCC) Morbid obesity Multiple thyroid nodules Nontoxic multinodular goiter Pulmonary embolism, other, unspecified chronicity, unspecified whether acute cor pulmonale present (HCC) Invasive lobular carcinoma of breast in female (HCC) Primary hypertension Unspecified essential hypertension Mixed hyperlipidemia Palpitations PETERSON (dyspnea on exertion) Other dyspnea and respiratory abnormality Disorder of mitral valve Mitral valve disorders Rheumatoid arthritis, involving unspecified site, unspecified whether rheumatoid factor present (HCC) Gastroesophageal reflux disease, unspecified whether esophagitis present Multiple thyroid nodules Nontoxic multinodular goiter [facility] Diagnosis Pre-op evaluation- Primary Preoperative examination, unspecified Atrial tachycardia, paroxysmal (HCC) Paroxysmal supraventricular tachycardia Primary hypertension Unspecified essential hypertension Mixed hyperlipidemia Gastroesophageal reflux disease, unspecified whether esophagitis present Morbid obesity with BMI of 50.0-59.9, adult (HCC) Morbid obesity PETERSON (dyspnea on exertion) Other dyspnea and respiratory abnormality Preop examination- Primary Preoperative examination, unspecified Mixed [...] site, unspecified whether rheumatoid factor present (HCC) Preoperative clearance- Primary Preoperative examination, unspecified Mixed hyperlipidemia Primary hypertension Unspecified essential hypertension Palpitations PETERSON (dyspnea on exertion) Other dyspnea and respiratory abnormality Disorder of mitral valve Mitral valve disorders Morbid obesity (HCC) Morbid obesity Edema, unspecified type 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), idiopathic Rheumatoid arthritis, involving unspecified site, unspecified whether rheumatoid factor present (HCC) Pre-op evaluation- Primary Preoperative examination, unspecified Morbid obesity (HCC) Morbid obesity Multiple thyroid nodules Nontoxic multinodular goiter Pulmonary embolism, other, unspecified chronicity, unspecified whether acute cor pulmonale present (HCC) Invasive lobular carcinoma of breast in female (HCC) Primary hypertension Unspecified essential hypertension Mixed hyperlipidemia Palpitations PETERSON (dyspnea on exertion) Other dyspnea and respiratory abnormality Disorder of mitral valve Mitral valve disorders Rheumatoid arthritis, involving unspecified site, unspecified whether rheumatoid factor present (HCC) Gastroesophageal reflux disease, unspecified whether esophagitis present Status post cataract surgery, right- Primary Status post cataract surgery, left [facility] Diagnosis Edema, unspecified type [facility] Diagnosis Pre-op evaluation- Primary Preoperative examination, unspecified Atrial tachycardia, paroxysmal (HCC) Paroxysmal supraventricular tachycardia Primary hypertension Unspecified essential hypertension Mixed hyperlipidemia Gastroesophageal reflux disease, unspecified whether esophagitis present Morbid obesity with BMI of 50.0-59.9, adult (HCC) Morbid obesity PETERSON (dyspnea on exertion) Other dyspnea and respiratory abnormality Preop examination- Primary Preoperative examination, unspecified Mixed [...] site, unspecified whether rheumatoid factor present (HCC) Preoperative clearance- Primary Preoperative examination, unspecified Mixed hyperlipidemia Primary hypertension Unspecified essential hypertension Palpitations PETERSON (dyspnea on exertion) Other dyspnea and respiratory abnormality Disorder of mitral valve Mitral valve disorders Morbid obesity (HCC) Morbid obesity Edema, unspecified type 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), idiopathic Rheumatoid arthritis, involving unspecified site, unspecified whether rheumatoid factor present (HCC) Pre-op evaluation- Primary Preoperative examination, unspecified Morbid obesity (HCC) Morbid obesity Multiple thyroid nodules Nontoxic multinodular goiter Pulmonary embolism, other, unspecified chronicity, unspecified whether acute cor pulmonale present (HCC) Invasive lobular carcinoma of breast in female (HCC) Primary hypertension Unspecified essential hypertension Mixed hyperlipidemia Palpitations PETERSON (dyspnea on exertion) Other dyspnea and respiratory abnormality Disorder of mitral valve Mitral valve disorders Rheumatoid arthritis, involving unspecified site, unspecified whether rheumatoid factor present (HCC) Gastroesophageal reflux disease, unspecified whether esophagitis present Status post cataract surgery, right- Primary Status post cataract surgery, left documented in this encounter [facility]* Diagnosis Pre-op evaluation- Primary Preoperative examination, unspecified Atrial tachycardia, paroxysmal (HCC) Paroxysmal supraventricular tachycardia Primary hypertension Unspecified essential hypertension Mixed hyperlipidemia Gastroesophageal reflux disease, unspecified whether esophagitis present Morbid obesity with BMI of 50.0-59.9, adult (HCC) Morbid obesity PETERSON (dyspnea on exertion) Other dyspnea and respiratory abnormality Preop examination- Primary Preoperative examination, unspecified Mixed [...] site, unspecified whether rheumatoid factor present (HCC) Preoperative clearance- Primary Preoperative examination, unspecified Mixed hyperlipidemia Primary hypertension Unspecified essential hypertension Palpitations PETERSON (dyspnea on exertion) Other dyspnea and respiratory abnormality Disorder of mitral valve Mitral valve disorders Morbid obesity (HCC) Morbid obesity Edema, unspecified type 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), idiopathic Rheumatoid arthritis, involving unspecified site, unspecified whether rheumatoid factor present (HCC) Pre-op evaluation- Primary Preoperative examination, unspecified Morbid obesity (HCC) Morbid obesity Multiple thyroid nodules Nontoxic multinodular goiter Pulmonary embolism, other, unspecified chronicity, unspecified whether acute cor pulmonale present (HCC) Invasive lobular carcinoma of breast in female (HCC) Primary hypertension Unspecified essential hypertension Mixed hyperlipidemia Palpitations PETERSON (dyspnea on exertion) Other dyspnea and respiratory abnormality Disorder of mitral valve Mitral valve disorders Rheumatoid arthritis, involving unspecified site, unspecified whether rheumatoid factor present (HCC) Gastroesophageal reflux disease, unspecified whether esophagitis present Invasive lobular carcinoma of breast in female ([facility]) [facility] Diagnosis Pre-op evaluation- Primary Preoperative examination, unspecified Atrial tachycardia, paroxysmal (HCC) Paroxysmal supraventricular tachycardia Primary hypertension Unspecified essential hypertension Mixed hyperlipidemia Gastroesophageal reflux disease, unspecified whether esophagitis present Morbid obesity with BMI of 50.0-59.9, adult (HCC) Morbid obesity PETERSON (dyspnea on exertion) Other dyspnea and respiratory abnormality Preop examination- Primary Preoperative examination, unspecified Mixed [...] site, unspecified whether rheumatoid factor present (HCC) Preoperative clearance- Primary Preoperative examination, unspecified Mixed hyperlipidemia Primary hypertension Unspecified essential hypertension Palpitations PETERSON (dyspnea on exertion) Other dyspnea and respiratory abnormality Disorder of mitral valve Mitral valve disorders Morbid obesity (HCC) Morbid obesity Edema, unspecified type 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), idiopathic Rheumatoid arthritis, involving unspecified site, unspecified whether rheumatoid factor present (HCC) Pre-op evaluation- Primary Preoperative examination, unspecified Morbid obesity (HCC) Morbid obesity Multiple thyroid nodules Nontoxic multinodular goiter Pulmonary embolism, other, unspecified chronicity, unspecified whether acute cor pulmonale present (HCC) Invasive lobular carcinoma of breast in female (HCC) Primary hypertension Unspecified essential hypertension Mixed hyperlipidemia Palpitations PETERSON (dyspnea on exertion) Other dyspnea and respiratory abnormality Disorder of mitral valve Mitral valve disorders Rheumatoid arthritis, involving unspecified site, unspecified whether rheumatoid factor present (HCC) Gastroesophageal reflux disease, unspecified whether esophagitis present Invasive lobular carcinoma of breast in female (HCC) [facility] Pre-op evaluation- Primary Preoperative examination, unspecified Atrial tachycardia, paroxysmal (HCC) Paroxysmal supraventricular tachycardia Primary hypertension Unspecified essential hypertension Mixed hyperlipidemia Gastroesophageal reflux disease, unspecified whether esophagitis present Morbid obesity with BMI of 50.0-59.9, adult (HCC) Morbid obesity PETERSON (dyspnea on exertion) Other dyspnea and respiratory abnormality Preop examination- Primary Preoperative examination, unspecified Mixed [...] site, unspecified whether rheumatoid factor present (HCC) Preoperative clearance- Primary Preoperative examination, unspecified Mixed hyperlipidemia Primary hypertension Unspecified essential hypertension Palpitations PETERSON (dyspnea on exertion) Other dyspnea and respiratory abnormality Disorder of mitral valve Mitral valve disorders Morbid obesity (HCC) Morbid obesity Edema, unspecified type 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), idiopathic Rheumatoid arthritis, involving unspecified site, unspecified whether rheumatoid factor present (HCC) Pre-op evaluation- Primary Preoperative examination, unspecified Morbid obesity (HCC) Morbid obesity Multiple thyroid nodules Nontoxic multinodular goiter Pulmonary embolism, other, unspecified chronicity, unspecified whether acute cor pulmonale present (HCC) Invasive lobular carcinoma of breast in female (HCC) Primary hypertension Unspecified essential hypertension Mixed hyperlipidemia Palpitations PETERSON (dyspnea on exertion) Other dyspnea and respiratory abnormality Disorder of mitral valve Mitral valve disorders Rheumatoid arthritis, involving unspecified site, unspecified whether rheumatoid factor present (HCC) Gastroesophageal reflux disease, unspecified whether esophagitis present Status post cataract surgery, right- Primary Status post cataract surgery, left documented in this encounter [facility] note* Diagnosis Pre-op evaluation- Primary Preoperative examination, unspecified Atrial tachycardia, paroxysmal (HCC) Paroxysmal supraventricular tachycardia Primary hypertension Unspecified essential hypertension Mixed hyperlipidemia Gastroesophageal reflux disease, unspecified whether esophagitis present Morbid obesity with BMI of 50.0-59.9, adult (HCC) Morbid obesity PETERSON (dyspnea on exertion) Other dyspnea and respiratory abnormality Preop examination- Primary Preoperative examination, unspecified Mixed [...] site, unspecified whether rheumatoid factor present (HCC) Preoperative clearance- Primary Preoperative examination, unspecified Mixed hyperlipidemia Primary hypertension Unspecified essential hypertension Palpitations PETERSON (dyspnea on exertion) Other dyspnea and respiratory abnormality Disorder of mitral valve Mitral valve disorders Morbid obesity (HCC) Morbid obesity Edema, unspecified type 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), idiopathic Rheumatoid arthritis, involving unspecified site, unspecified whether rheumatoid factor present (HCC) Pre-op evaluation- Primary Preoperative examination, unspecified Morbid obesity (HCC) Morbid obesity Multiple thyroid nodules Nontoxic multinodular goiter Pulmonary embolism, other, unspecified chronicity, unspecified whether acute cor pulmonale present (HCC) Invasive lobular carcinoma of breast in female (HCC) Primary hypertension Unspecified essential hypertension Mixed hyperlipidemia Palpitations PETERSON (dyspnea on exertion) Other dyspnea and respiratory abnormality Disorder of mitral valve Mitral valve disorders Rheumatoid arthritis, involving unspecified site, unspecified whether rheumatoid factor present (HCC) Gastroesophageal reflux disease, unspecified whether esophagitis present Multiple thyroid nodules- Primary Nontoxic multinodular goiter documented in this encounter [facility] note* Diagnosis Pre-op evaluation- Primary Preoperative examination, unspecified Atrial tachycardia, paroxysmal (HCC) Paroxysmal supraventricular tachycardia Primary hypertension Unspecified essential hypertension Mixed hyperlipidemia Gastroesophageal reflux disease, unspecified whether esophagitis present Morbid obesity with BMI of 50.0-59.9, adult (HCC) Morbid obesity PETERSON (dyspnea on exertion) Other dyspnea and respiratory abnormality Preop examination- Primary Preoperative examination, unspecified Mixed [...] site, unspecified whether rheumatoid factor present (HCC) Preoperative clearance- Primary Preoperative examination, unspecified Mixed hyperlipidemia Primary hypertension Unspecified essential hypertension Palpitations PETERSON (dyspnea on exertion) Other dyspnea and respiratory abnormality Disorder of mitral valve Mitral valve disorders Morbid obesity (HCC) Morbid obesity Edema, unspecified type 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), idiopathic Rheumatoid arthritis, involving unspecified site, unspecified whether rheumatoid factor present (HCC) Pre-op evaluation- Primary Preoperative examination, unspecified Morbid obesity (HCC) Morbid obesity Multiple thyroid nodules Nontoxic multinodular goiter Pulmonary embolism, other, unspecified chronicity, unspecified whether acute cor pulmonale present (HCC) Invasive lobular carcinoma of breast in female (HCC) Primary hypertension Unspecified essential hypertension Mixed hyperlipidemia Palpitations PETERSON (dyspnea on exertion) Other dyspnea and respiratory abnormality Disorder of mitral valve Mitral valve disorders Rheumatoid arthritis, involving unspecified site, unspecified whether rheumatoid factor present (HCC) Gastroesophageal reflux disease, unspecified whether esophagitis present Invasive lobular carcinoma of breast in female (HCC)- Primary [facility] Diagnosis Pre-op evaluation- Primary Preoperative examination, unspecified Atrial tachycardia, paroxysmal (HCC) Paroxysmal supraventricular tachycardia Primary hypertension Unspecified essential hypertension Mixed hyperlipidemia Gastroesophageal reflux disease, unspecified whether esophagitis present Morbid obesity with BMI of 50.0-59.9, adult (HCC) Morbid obesity PETERSON (dyspnea on exertion) Other dyspnea and respiratory abnormality Preop examination- Primary Preoperative examination, unspecified Mixed [...] site, unspecified whether rheumatoid factor present (HCC) Preoperative clearance- Primary Preoperative examination, unspecified Mixed hyperlipidemia Primary hypertension Unspecified essential hypertension Palpitations PETERSON (dyspnea on exertion) Other dyspnea and respiratory abnormality Disorder of mitral valve Mitral valve disorders Morbid obesity (HCC) Morbid obesity Edema, unspecified type 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), idiopathic Rheumatoid arthritis, involving unspecified site, unspecified whether rheumatoid factor present (HCC) Pre-op evaluation- Primary Preoperative examination, unspecified Morbid obesity (HCC) Morbid obesity Multiple thyroid nodules Nontoxic multinodular goiter Pulmonary embolism, other, unspecified chronicity, unspecified whether acute cor pulmonale present (HCC) Invasive lobular carcinoma of breast in female (HCC) Primary hypertension Unspecified essential hypertension Mixed hyperlipidemia Palpitations PETERSON (dyspnea on exertion) Other dyspnea and respiratory abnormality Disorder of mitral valve Mitral valve disorders Rheumatoid arthritis, involving unspecified site, unspecified whether rheumatoid factor present (HCC) Gastroesophageal reflux disease, unspecified whether esophagitis present Invasive lobular carcinoma of breast in female (HCC)- Primary [facility] Hip pain, unspecified laterality [facility] Diagnosis Pre-op evaluation- Primary Preoperative examination, unspecified Atrial tachycardia, paroxysmal (HCC) Paroxysmal supraventricular tachycardia Primary hypertension Unspecified essential hypertension Mixed hyperlipidemia Gastroesophageal reflux disease, unspecified whether esophagitis present Morbid obesity with BMI of 50.0-59.9, adult ([facility]) Morbid obesity PETERSON (dyspnea on exertion) Other dyspnea and respiratory abnormality Preop examination- Primary Preoperative examination, unspecified Mixed [...] site, unspecified whether rheumatoid factor present (HCC) Preoperative clearance- Primary Preoperative examination, unspecified Mixed hyperlipidemia Primary hypertension Unspecified essential hypertension Palpitations PETERSON (dyspnea on exertion) Other dyspnea and respiratory abnormality Disorder of mitral valve Mitral valve disorders Morbid obesity (HCC) Morbid obesity Edema, unspecified type 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), idiopathic Rheumatoid arthritis, involving unspecified site, unspecified whether rheumatoid factor present (HCC) Pre-op evaluation- Primary Preoperative examination, unspecified Morbid obesity (HCC) Morbid obesity Multiple thyroid nodules Nontoxic multinodular goiter Pulmonary embolism, other, unspecified chronicity, unspecified whether acute cor pulmonale present (HCC) Invasive lobular carcinoma of breast in female (HCC) Primary hypertension Unspecified essential hypertension Mixed hyperlipidemia Palpitations PETERSON (dyspnea on exertion) Other dyspnea and respiratory abnormality Disorder of mitral valve Mitral valve disorders Rheumatoid arthritis, involving unspecified site, unspecified whether rheumatoid factor present (HCC) Gastroesophageal reflux disease, unspecified whether esophagitis present Pre-op testing Preoperative examination, unspecified [facility] Diagnosis Hypertension, unspecified type [facility] - [facility]orted* Type Description Date Medical History acid reflux Medical History Hypertension Medical History hypercholesterolemia Medical History Scoliosis Surgical History back surgery x2 Surgical History C section Surgical History kidney stone Surgical History knee replacement bilateral Hospitalization History see above [employer] Other InstructionsNot on filedocumented in this encounter [facility] on filedocumented in this [facility] filedocumented in [facility] filedocumented in [facility] filedocumented in [facility]* Attachments The following attachments cannot be sent through Care Everywhere. * Heart Failure, Adult (Taiwanese) [facility] on file documented in this [facility]ructionsNot on file documented in this [facility] SystemInstructionsNot on file documented in this [facility] System[facility]ructionsNot on file documented in this [facility] SystemInstructionsNot on file documented in this [facility] SystemInstructionsNot on file documented in this encounter[facility] SystemInstructionsNot on file documented in [facility] SystemReason for referral (narrative)* Outpatient Procedure (Routine) - Pending Review Specialty Diagnoses / Procedures Referred By Binu fontanez Referred To [facility] Diagnoses AF (paroxysmal atrial fibrillation) (HCC) Procedures ECHO ECHO TTHRC R-T 2D W/WOM-MODE COMPL SPEC&COLR D John Dc MD [address] [place] [address] [facility] [place] [address] [place] [address] Referral ID Status Reason Start Date Expiration Date Visits Requested Visits Authorized [id number] Pending Review Auto-Generat ed Referral 12/08/2021 12/08/2022 1 1 [facility] for [facility] (narrative)* Diagnostic Procedure Only (Routine) - Closed Specialty Diagnoses / Procedures Referred By Contac t Referred To Contact US IMAGING Diagnoses Thyroid nodule Procedures US THYROID/PARATHYROID US SOFT TISSUE HEAD & NECK REAL TIME IMGE Lopez Servin DO [address] [place] [address] [facility] Imaging Referral ID Status Reason Start Date Expiration Date V isits Requested Visits Authorized [id number] Closed Auto-Generate d Referral 03/15/2022 04/14/2023 1 1 [facility] for referral (narrative)* Outpatient Procedure (Routine) - Authorized Specialty Diagnoses / Procedures Referred By Contac t Referred To Contact [facility] Diagnoses Gastroesophageal reflux disease, unspecified whether esophagitis present Hiatal hernia Procedures EGD DIAGNOSTIC ESOPHAGOGASTRODUODENOSC OPY TRANSORAL DIAGNOSTIC Nell Trujillo APRN.CNP [address] [place] [address] [place] [address] [facility] [address] [place] [address] Referral ID Status Reason Start Date Expiration Date Visits Requested Visits Authorized [id number] Authorized Auto-Generat ed Referral 09/19/2022 09/19/2023 1 1 * Outpatient Procedure (Routine) - Authorized Specialty Diagnoses / Procedures Referred By Contac t Referred To Contact [facility] Diagnoses Screening for colon cancer Procedures COLONOSCOPY SCREENING COLONOSCOPY FLX DX W/COLLJ SPEC WHEN Nell Castillo APRN.CNP [address] [place] [address] [facility] [address] [place] [address] Referral ID Status Reason Start Date Expiration Date Visits Requested Visits Authorized [id number] Authorized Auto-Generat ed Referral 09/19/2022 09/19/2023 [address] [facility] for referral (narrative)* Diagnostic Procedure Only (Routine) - Pending Review Specialty Diagnoses / Procedures Referred By Binu fontanez Referred To Contact BR IMAGING Diagnoses Malignant neoplasm of left female breast, unspecified estrogen receptor status, unspecified site of breast (HCC) Procedures US AXILLA ONLY LEFT US LMTD JOINT/OTH NONVASC XTR STRUX R-T W/[place] [address] [place] [id number] [facility] [address] [place] [id number] Referral ID Status Reason Start Date Expiration Date Visits Requested Visits Authorized [id number] Pending Review Auto-Generat ed Referral 08/15/2024 [address] [facility] for referral (narrative)* Diagnostic Procedure Only (Routine) - Closed Specialty Diagnoses / Procedures Referred By Binu fontanez Referred To Contact BR [facility] Diagnoses Malignant neoplasm of left female breast, unspecified estrogen receptor status, unspecified site of breast (HCC) Procedures US AXILLA ONLY LEFT US LMTD JOINT/OTH NONVASC XTR STRUX R-T W/[place] [address] [place] [address] [facility] [address] [place] [address] Referral ID Status Reason Start Date Expiration Date V isits Requested Visits Authorized [id number] Closed Auto-Generate d Referral 07/17/2023 08/15/2024 1 1 [facility] for [facility] (narrative)* Diagnostic Procedure Only (Routine) - Pending Review Specialty Diagnoses / Procedures Referred By Contac t Referred To Contact BR [facility] Diagnoses Mass of right breast, unspecified quadrant Invasive lobular carcinoma of breast in female (HCC) Other abnormal and inconclusive findings on diagnostic imaging of breast Procedures US BREAST LTD RIGHT US BREAST UNI REAL TIME WITH IMAGE LIMITED Cathy Templeton PA-C [address] [place] [address] [place] [address] [facility] [address] [address] Referral ID Status Reason Start Date Expiration Date Visits Requested Visits Authorized [id number] Pending Review Auto-Generat ed Referral 01/14/2024 02/12/2025 1 1 * Diagnostic Procedure Only (Routine) - Pending Review Specialty Diagnoses / Procedures Referred By Contac t Referred To Contact [facility] Diagnoses Mass of right breast, unspecified quadrant Invasive lobular carcinoma of breast in female (HCC) Other abnormal and inconclusive findings on diagnostic imaging of breast Procedures TINO DIAGNOSTIC RIGHT DIAGNOSTIC MAMMOGRAPHY COMPUTER-AIDED DETCJ UNI Cathy Templeton PA-C [address] [place] [address] [facility] [address] [place] [address] Referral ID Status Reason Start Date Expiration Date Visits Requested Visits Authorized [id number] Pending Review Auto-Generat ed Referral 01/14/2024 02/12/2025 1 1 [facility] for referral (narrative)* Diagnostic Procedure Only (Routine) - Pending Review Specialty Diagnoses / Procedures Referred By Contac t Referred To Contact XR IMAGING Diagnoses Encounter for screening for osteoporosis Asymptomatic postmenopausal status Procedures DXA-AXIAL SKELETON WITH VFA DXA BONE DENSITY STUDY AXIAL SKELETON Mitch Neri MD [address] [place] [address] [place] [address] Referral ID Status Reason Start Date Expiration Date Visits Requested Visits Authorized [id number] Pending Review Auto-Generat ed Referral 03/03/2024 04/02/2025 1 1 [facility] for referral (narrative)* Diagnostic Procedure Only (Routine) - Authorized Specialty Diagnoses / Procedures Referred By Contac t Referred To Contact US IMAGING Diagnoses Multiple thyroid nodules Procedures US THYROID/PARATHYROID US SOFT TISSUE HEAD & NECK REAL TIME IMGE Sandy Hillman MD, PhD [address] [place] [address] [place] [address] Referral ID Status Reason Start Date Expiration Date Visits Requested Visits Authorized [id number] Authorized Auto-Generat ed Referral 05/05/2024 06/04/2025 1 1 [facility] for referral (narrative)* Diagnostic Procedure Only (Routine) - Closed Specialty Diagnoses / Procedures Referred By Contac t Referred To Contact XR IMAGING Diagnoses Primary osteoarthritis of left hip Procedures XR HIP GENERAL 3V PELV/AP/LAT LEFT RADEX HIP UNILATERAL WITH PELVIS 2-3 VIEWS Nayan Yan, [address] [place] [address] [place] [address] Referral ID Status Reason Start Date Expiration Date V isits Requested Visits Authorized [id number] Closed Auto-Generate d Referral 03/23/2022 04/22/2023 1 1 [facility] for referral (narrative)* Outpatient Procedure (Routine) - New Request Specialty Diagnoses / Procedures Referred By Contac t Referred To [facility] Diagnoses Invasive lobular carcinoma of breast in female (HCC) Procedures ECG COMPLETE ECG ROUTINE ECG W/LEAST 12 LDS W/I&R Mitch Neri MD [address] [place] [address] [address] [place] [address] Referral ID Status Reason Start Date Expiration Date Visits Requested Visits Authorized [id number] New Request Auto-Generat ed Referral 4 07/16/2025 1 1 * Outpatient Procedure (Routine) - New Request Specialty Diagnoses / Procedures Referred By Contac t Referred To [facility] Diagnoses Invasive lobular carcinoma of breast in female (HCC) Procedures ECG COMPLETE ECG ROUTINE ECG W/LEAST 12 LDS W/I&R Mitch Neri MD [address] [place] [address] [address] [address] [place] [address] Referral ID Status Reason Start Date Expiration Date Visits Requested Visits Authorized [id number] New Request Auto-Generat ed Referral 4 07/16/2025 1 1 [facility] for visit Narrative* Diagnostic Procedure Only (Routine) - Closed Specialty Diagnoses / Procedures Referred By Contac t Referred To Contact US IMAGING Diagnoses Thyroid nodule Procedures US THYROID/PARATHYROID US SOFT TISSUE HEAD & NECK REAL TIME IMGE Lopez Servin DO [address] [place] [address] Us Imaging Referral ID Status Reason Start Date Expiration Date V isits Requested Visits Authorized [id number] Closed Auto-Generate d Referral 03/15/2022 04/14/2023 1 1 [facility] for visit Narrative* Diagnostic Procedure Only (Routine) - Closed Specialty Diagnoses / Procedures Referred By Contac t Referred To Contact XR IMAGING Diagnoses Primary osteoarthritis of left hip Procedures XR HIP GENERAL 3V PELV/AP/LAT LEFT RADEX HIP UNILATERAL WITH PELVIS 2-3 VIEWS Nayan Yan, DO [address] [place] [address] [place] [address] Referral ID Status Reason Start Date Expiration Date V isits Requested Visits Authorized [id number] Closed Auto-Generate d Referral 03/23/2022 04/22/2023 1 1 [facility] for visit Narrative* Diagnostic Procedure Only (Routine) - Closed Specialty Diagnoses / Procedures Referred By Contac t Referred To Contact [facility] IMAG[facility] Diagnoses Multiple thyroid nodules Procedures US THYROID/PARATHYROID US SOFT TISSUE HEAD & NECK REAL TIME IMGE Sandy Hillman MD, PhD [address] [place] [address] [place] [address] Referral ID Status Reason Start Date Expiration Date V isits Requested Visits Authorized [id number] Closed Auto-Generate d Referral 05/05/2024 06/04/2025 1 1 [facility] for visit Narrative* Outpatient Procedure (Routine) - Closed Specialty Diagnoses / Procedures Referred By Contac t Referred To [facility] Diagnoses Pre-op testing Procedures ECG COMPLETE ECG ROUTINE ECG W/LEAST 12 LDS W/I&[place] [address] [place] [address] [facility] [place] [address] [place] [address] Referral ID Status Reason Start Date Expiration Date V isits Requested Visits Authorized [id number] Closed Auto-Generate d Referral 07/23/2023 07/22/2024 1 1 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 Advance Directive(s) 12/22/2017 6:24 PM Documents on File Type Date Recorded Patient Informatica Architect Expl anation Advance Directive(s) 03/15/2022 12:45 PM Advance Directive(s) 12/22/2017 6:24 PM Documents on File Type Date Recorded Patient Informatica Architect Expl 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 Advance Directive(s) 03/15/2022 12:45 PM Advance Directive(s) 12/22/2017 6:24 PM Advance Directive Response Recorded Date/ Time Advance Directives No January 04 9:04am Advance Directive Response Recorded Date/ Time Advance Directives No June 28, 2022 10:08am Advance Directive Response Recorded Date/ Time Advance Directives No June 28, 2022 11:08am Hospital Course Note HNO ID: [id number] Author: Tam willis (Res) Fredrick Service: Orthopaedic Surgery Author Type: Resident Type: Discharge Summaries Filed: 04/03/2018 8:50 AM Note Text: DISCHARGE SUMMARY PATIENT NAME: Minal Caputo ADMISSION DATE: 03/31/2018 DISCHARGE DATE: April 03, 2018 Attending Physician: Donte Trevino Reason for Hospitalization: Principal Problem: Arthritis of [...] Referral Specialty Diagnoses / Procedures Referred By Contac t Referred To Contact [facility] Diagnoses Invasive lobular carcinoma of breast in female (HCC) Procedures CONSULT TO LYMPHEDEMA THERAPY OFFICE/OUTPATIENT [facility] 60 MINUTES Josef Austin MD [address] [place] [address] [facility] [place] [address] Referral ID Status Reason Start Date Expiration Date Visits Requested Visits Authorized [id number] Authorized Auto-Generat ed Referral 02/13/2024 02/12/2025 99 99 Specialty Diagnoses / Procedures Referred By Contac t Referred To Contact Radiation Oncology Diagnoses Invasive lobular carcinoma of breast in female (HCC) Procedures RAD/ONC CONSULT OFFICE/OUTPATIENT [facility] 60 MINUTES Mitch Neri MD [address] [place] [address] Referral ID Status Reason Start Date Expiration Date Visits Requested Visits Authorized [id number] Authorized PCP Requested Referral 01/21/2024 01/20/2025 1 1 Specialty Diagnoses / Procedures Referred By Contac t Referred To Contact General Surgery Diagnoses Cutaneous abscess of groin Procedures CONSULT TO GENERAL SURGERY OFFICE/OUTPATIENT [facility] 60 MINUTES Mitch Neri MD [address] [place] [address] Referral ID Status Reason Start Date Expiration Date Visits Requested Visits Authorized [id number] Authorized PCP Requested Referral 01/07/2024 01/06/2025 1 1 Specialty Diagnoses / Procedures Referred By Contac t Referred To Contact CT IMAGING Diagnoses Chest pain, unspecified type Procedures CT CHEST W IVCON PE DIAGNOSTIC COMPUTED TOMOGRAPHY THORAX W/CONTRAST Brianna Renner, [employer].[address] [place] [address] [facility] [place] [address] Referral ID Status Reason Start Date Expiration Date Visits Requested Visits Authorized [id number] Pending Review Auto-Generat ed Referral 11/05/2023 12/04/2024 1 1 Specialty Diagnoses / Procedures Referred By Contac t Referred To Contact Diagnoses Cervical disc disorder with radiculopathy Weakness of right upper extremity Procedures CONSULT TO SPINE SURGERY OFFICE/OUTPATIENT [facility] 60-74 MINUTES Alberto Monsalve DO [address] [place] [phone] Referral ID Status Reason Start Date Expiration Date Visits Requested Visits Authorized [id number] Authorized PCP Requested Referral 03/19/2022 03/19/2023 1 1 Specialty Diagnoses / Procedures Referred By Contac t Referred To Contact Nutrition Diagnoses BMI 50.0-59.9, adult (HCC) Type 2 diabetes mellitus with hyperglycemia, 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) Procedures CONSULT TO NUTRITION THERAPY OFFICE/OUTPATIENT [facility] 60-[place] [address] [place] [address] Referral ID Status Reason Start Date Expiration Date Visits Requested Visits Authorized [id number] Authorized PCP Requested Referral 04/03/2022 04/03/2023 1 1 Specialty Diagnoses / Procedures Referred By Contac t Referred To Contact Endocrinology Diagnoses Thyroid nodule Procedures CONSULT TO ENDOCRINOLOGY OFFICE/OUTPATIENT [facility] 60-74 MINUTES Lopez Salmon DO [address] [place] [address] Referral ID Status Reason Start Date Expiration Date Visits Requested Visits Authorized [id number] Authorized PCP Requested Referral 04/03/2022 04/03/2023 1 1 Specialty Diagnoses / Procedures Referred By Contac t Referred To Contact Orthopedics Diagnoses Primary osteoarthritis of left hip Procedures CONSULT TO ORTHOPAEDICS OFFICE/OUTPATIENT [facility] 60-74 MINUTES Nayan Yan, DO [address] [place] [address] Referral ID Status Reason Start Date Expiration Date Visits Requested Visits Authorized [id number] Authorized PCP Requested Referral 03/23/2022 03/23/2023 1 1 Specialty Diagnoses / Procedures Referred By Contac t Referred To Contact XR IMAGING Diagnoses Primary osteoarthritis of left hip Procedures XR HIP GENERAL 3V PELV/AP/LAT LEFT RADEX HIP UNILATERAL WITH PELVIS 2-3 VIEWS Nayan Yan, DO [address] [place] [address] Xr Imaging Referral ID Status Reason Start Date Expiration Date V isits Requested Visits Authorized [id number] Closed Auto-Generate d Referral 03/23/2022 04/22/2023 1 1 Specialty Diagnoses / Procedures Referred By Contac t Referred To Contact [facility] Diagnoses Neck pain Procedures CONSULT TO PHYSICAL THERAPY PHYSICAL THERAPY EVALUATION HIGH COMPLEX 45 MINS Lopez Salmon DO [address] [place] [address] [facility] [address] [address] Referral ID Status Reason Start Date Expiration Date Visits Requested Visits Authorized [id number] Authorized PCP Requested Referral Auto-Generate d Referral 03/23/2022 03/23/2023 99 99 Specialty Diagnoses / Procedures Referred By Contac t Referred To Contact [facility] Diagnoses Right arm weakness Procedures CONSULT TO DIAL MARKER OCCUPATIONAL THERAPY EVMA HIGH COMPLEX 60 MINS Lopez Salmon DO [address] [place] [address] [facility] [address] [address] Referral ID Status Reason Start Date Expiration Date Visits Requested Visits Authorized [id number] Authorized PCP Requested Referral Auto-Generate d Referral 03/15/2022 03/15/2023 99 99 Specialty Diagnoses / Procedures Referred By Contac t Referred To Contact [facility] Diagnoses Right arm weakness Procedures CONSULT TO PHYSICAL THERAPY PHYSICAL THERAPY EVALUATION HIGH COMPLEX 45 MINS Luis Antonio, Lopez, DO [address] [place] [address] [facility] [place] [address] [place] [address] Referral ID Status Reason Start Date Expiration Date Visits Requested Visits Authorized [id number] Authorized PCP Requested Referral Auto-Generate d Referral 03/15/2022 03/15/2023 99 99 Chief Complaint and Reason for Visit Chief Complaint R92.8 Chief Complaint R06.00 Chief Complaint R06.00 Dysuria Chief Complaint R30.0 Chief Complaint e04.1 Reason for Visit Multiple thyroid nod ules Chief Complaint yeast infection Additional Source Comments INFORMATION SOURCE (unrecogn ized section and content) DATE CREATED AUTHOR 10/15/2018 [facility] DATE CREATED AUTHOR AUTHOR'S ORGANIZ ATION 08/03/2021 [facility] DATE CREATED AUTHOR AUTHOR'S ORGANIZ ATION 02/10/2022 [facility] DATE CREATED AUTHOR AUTHOR'S ORGANIZ ATION 07/06/2022 [facility] DATE CREATED AUTHOR AUTHOR'S ORGANIZ ATION 12/13/2022 [facility] DATE CREATED AUTHOR AUTHOR'S ORGANIZ ATION 09/23/2023 [facility] DATE CREATED AUTHOR AUTHOR'S ORGANIZ ATION 09/28/2023 [facility] DATE CREATED AUTHOR AUTHOR'S ORGANIZ ATION 01/28/2024 [facility] DATE CREATED AUTHOR AUTHOR'S ORGANIZ ATION 05/27/2024 [facility] DATE CREATED AUTHOR AUTHOR'S ORGANIZ ATION 06/12/2024 [facility] DATE CREATED AUTHOR AUTHOR'S ORGANIZ ATION 06/12/2024 [facility] DATE CREATED AUTHOR AUTHOR'S ORGANIZ ATION 07/24/2024 [facility] Source Comments (unrecognize d section and content) In the event this informatio n is protected by the Federal Confidentiality of Alcohol and Drug Abuse Patient Records regulations: The Federal rules restrict any use of the information to criminally investigate or prosecute any alcohol or drug abuse patient.[facility] the event this information is protected by the Federal Confidentiality of Alcohol and Drug Abuse Patient Records regulations: The Federal rules restrict any use of the information to criminally investigate or prosecute any alcohol or drug abuse patient.[facility] HospitalIn the event this information is protected by the Federal Confidentiality of Alcohol and Drug Abuse Patient Records regulations: The Federal rules restrict any use of the information to criminally investigate or prosecute any alcohol or drug abuse patient.[facility] HospitalIn the event this information is protected by the Federal Confidentiality of Alcohol and Drug Abuse Patient Records regulations: The Federal rules restrict any use of the information to criminally investigate or prosecute any alcohol or drug abuse patient.[facility] HospitalIn the event this information is protected by the Federal Confidentiality of Alcohol and Drug Abuse Patient Records regulations: The Federal rules restrict any use of the information to criminally investigate or prosecute any alcohol or drug abuse patient.[facility] HospitalIn the event this information is protected by the Federal Confidentiality of Alcohol and Drug Abuse Patient Records regulations: The Federal rules restrict any use of the information to criminally investigate or prosecute any alcohol or drug abuse patient.[facility] HospitalIn the event this information is protected by the Federal Confidentiality of Alcohol and Drug Abuse Patient Records regulations: The Federal rules restrict any use of the information to criminally investigate or prosecute any alcohol or drug abuse patient.[facility] HospitalIn the event this information is protected by the Federal Confidentiality of Alcohol and Drug Abuse Patient Records regulations: The Federal rules restrict any use of the information to criminally investigate or prosecute any alcohol or drug abuse patient.[facility] HospitalIn the event this information is protected by the Federal Confidentiality of Alcohol and Drug Abuse Patient Records regulations: The Federal rules restrict any use of the information to criminally investigate or prosecute any alcohol or drug abuse patient.[facility] HospitalIn the event this information is protected by the Federal Confidentiality of Alcohol and Drug Abuse Patient Records regulations: The Federal rules restrict any use of the information to criminally investigate or prosecute any alcohol or drug abuse patient.[facility] HospitalIn the event this information is protected by the Federal Confidentiality of Alcohol and Drug Abuse Patient Records regulations: The Federal rules restrict any use of the information to criminally investigate or prosecute any alcohol or drug abuse patient.[facility] HospitalIn the event this information is protected by the Federal Confidentiality of Alcohol and Drug Abuse Patient Records regulations: The Federal rules restrict any use of the information to criminally investigate or prosecute any alcohol or drug abuse patient.[facility] HospitalIn the event this information is protected by the Federal Confidentiality of Alcohol and Drug Abuse Patient Records regulations: The Federal rules restrict any use of the information to criminally investigate or prosecute any alcohol or drug abuse patient.[facility] HospitalIn the event this information is protected by the Federal Confidentiality of Alcohol and Drug Abuse Patient Records regulations: The Federal rules restrict any use of the information to criminally investigate or prosecute any alcohol or drug abuse patient.[facility] HospitalIn the event this information is protected by the Federal Confidentiality of Alcohol and Drug Abuse Patient Records regulations: The Federal rules restrict any use of the information to criminally investigate or prosecute any alcohol or drug abuse patient.[facility] HospitalIn the event this information is protected by the Federal Confidentiality of Alcohol and Drug Abuse Patient Records regulations: The Federal rules restrict any use of the information to criminally investigate or prosecute any alcohol or drug abuse patient.[facility] HospitalIn the event this information is protected by the Federal Confidentiality of Alcohol and Drug Abuse Patient Records regulations: The Federal rules restrict any use of the information to criminally investigate or prosecute any alcohol or drug abuse patient.[facility] HospitalIn the event this information is protected by the Federal Confidentiality of Alcohol and Drug Abuse Patient Records regulations: The Federal rules restrict any use of the information to criminally investigate or prosecute any alcohol or drug abuse patient.[facility] HospitalIn the event this information is protected by the Federal Confidentiality of Alcohol and Drug Abuse Patient Records regulations: The Federal rules restrict any use of the information to criminally investigate or prosecute any alcohol or drug abuse patient.[facility] HospitalIn the event this information is protected by the Federal Confidentiality of Alcohol and Drug Abuse Patient Records regulations: The Federal rules restrict any use of the information to criminally investigate or prosecute any alcohol or drug abuse patient.[facility] HospitalIn the event this information is protected by the Federal Confidentiality of Alcohol and Drug Abuse Patient Records regulations: The Federal rules restrict any use of the information to criminally investigate or prosecute any alcohol or drug abuse patient.[facility] HospitalIn the event this information is protected by the Federal Confidentiality of Alcohol and Drug Abuse Patient Records regulations: The Federal rules restrict any use of the information to criminally investigate or prosecute any alcohol or drug abuse patient.[facility] HospitalIn the event this information is protected by the Federal Confidentiality of Alcohol and Drug Abuse Patient Records regulations: The Federal rules restrict any use of the information to criminally investigate or prosecute any alcohol or drug abuse patient.[facility] HospitalIn the event this information is protected by the Federal Confidentiality of Alcohol and Drug Abuse Patient Records regulations: The Federal rules restrict any use of the information to criminally investigate or prosecute any alcohol or drug abuse patient.[facility] HospitalIn the event this information is protected by the Federal Confidentiality of Alcohol and Drug Abuse Patient Records regulations: The Federal rules restrict any use of the information to criminally investigate or prosecute any alcohol or drug abuse patient.[facility] HospitalIn the event this information is protected by the Federal Confidentiality of Alcohol and Drug Abuse Patient Records regulations: The Federal rules restrict any use of the information to criminally investigate or prosecute any alcohol or drug abuse patient.[facility] HospitalIn the event this information is protected by the Federal Confidentiality of Alcohol and Drug Abuse Patient Records regulations: The Federal rules restrict any use of the information to criminally investigate or prosecute any alcohol or drug abuse patient.[facility] HospitalIn the event this information is protected by the Federal Confidentiality of Alcohol and Drug Abuse Patient Records regulations: The Federal rules restrict any use of the information to criminally investigate or prosecute any alcohol or drug abuse patient.[facility] HospitalIn the event this information is protected by the Federal Confidentiality of Alcohol and Drug Abuse Patient Records regulations: The Federal rules restrict any use of the information to criminally investigate or prosecute any alcohol or drug abuse patient.[facility] HospitalIn the event this information is protected by the Federal Confidentiality of Alcohol and Drug Abuse Patient Records regulations: The Federal rules restrict any use of the information to criminally investigate or prosecute any alcohol or drug abuse patient.[facility] HospitalIn the event this information is protected by the Federal Confidentiality of Alcohol and Drug Abuse Patient Records regulations: The Federal rules restrict any use of the information to criminally investigate or prosecute any alcohol or drug abuse patient.[facility] HospitalIn the event this information is protected by the Federal Confidentiality of Alcohol and Drug Abuse Patient Records regulations: The Federal rules restrict any use of the information to criminally investigate or prosecute any alcohol or drug abuse patient.[facility] HospitalIn the event this information is protected by the Federal Confidentiality of Alcohol and Drug Abuse Patient Records regulations: The Federal rules restrict any use of the information to criminally investigate or prosecute any alcohol or drug abuse patient.[facility] HospitalIn the event this information is protected by the Federal Confidentiality of Alcohol and Drug Abuse Patient Records regulations: The Federal rules restrict any use of the information to criminally investigate or prosecute any alcohol or drug abuse patient.[facility] HospitalIn the event this information is protected by the Federal Confidentiality of Alcohol and Drug Abuse Patient Records regulations: The Federal rules restrict any use of the information to criminally investigate or prosecute any alcohol or drug abuse patient.[facility] HospitalIn the event this information is protected by the Federal Confidentiality of Alcohol and Drug Abuse Patient Records regulations: The Federal rules restrict any use of the information to criminally investigate or prosecute any alcohol or drug abuse patient.[facility] HospitalIn the event this information is protected by the Federal Confidentiality of Alcohol and Drug Abuse Patient Records regulations: The Federal rules restrict any use of the information to criminally investigate or prosecute any alcohol or drug abuse patient.[facility] HospitalIn the event this information is protected by the Federal Confidentiality of Alcohol and Drug Abuse Patient Records regulations: The Federal rules restrict any use of the information to criminally investigate or prosecute any alcohol or drug abuse patient.[facility] HospitalIn the event this information is protected by the Federal Confidentiality of Alcohol and Drug Abuse Patient Records regulations: The Federal rules restrict any use of the information to criminally investigate or prosecute any alcohol or drug abuse patient.[facility] HospitalIn the event this information is protected by the Federal Confidentiality of Alcohol and Drug Abuse Patient Records regulations: The Federal rules restrict any use of the information to criminally investigate or prosecute any alcohol or drug abuse patient.[facility] HospitalIn the event this information is protected by the Federal Confidentiality of Alcohol and Drug Abuse Patient Records regulations: The Federal rules restrict any use of the information to criminally investigate or prosecute any alcohol or drug abuse patient.[facility] HospitalIn the event this information is protected by the Federal Confidentiality of Alcohol and Drug Abuse Patient Records regulations: The Federal rules restrict any use of the information to criminally investigate or prosecute any alcohol or drug abuse patient.[facility] HospitalIn the event this information is protected by the Federal Confidentiality of Alcohol and Drug Abuse Patient Records regulations: The Federal rules restrict any use of the information to criminally investigate or prosecute any alcohol or drug abuse patient.[facility] HospitalIn the event this information is protected by the Federal Confidentiality of Alcohol and Drug Abuse Patient Records regulations: The Federal rules restrict any use of the information to criminally investigate or prosecute any alcohol or drug abuse patient.[facility] HospitalIn the event this information is protected by the Federal Confidentiality of Alcohol and Drug Abuse Patient Records regulations: The Federal rules restrict any use of the information to criminally investigate or prosecute any alcohol or drug abuse patient.[facility] HospitalIn the event this information is protected by the Federal Confidentiality of Alcohol and Drug Abuse Patient Records regulations: The Federal rules restrict any use of the information to criminally investigate or prosecute any alcohol or drug abuse patient.[facility] HospitalIn the event this information is protected by the Federal Confidentiality of Alcohol and Drug Abuse Patient Records regulations: The Federal rules restrict any use of the information to criminally investigate or prosecute any alcohol or drug abuse patient.[facility] HospitalIn the event this information is protected by the Federal Confidentiality of Alcohol and Drug Abuse Patient Records regulations: The Federal rules restrict any use of the information to criminally investigate or prosecute any alcohol or drug abuse patient.[facility] HospitalIn the event this information is protected by the Federal Confidentiality of Alcohol and Drug Abuse Patient Records regulations: The Federal rules restrict any use of the information to criminally investigate or prosecute any alcohol or drug abuse patient.[facility] HospitalIn the event this information is protected by the Federal Confidentiality of Alcohol and Drug Abuse Patient Records regulations: The Federal rules restrict any use of the information to criminally investigate or prosecute any alcohol or drug abuse patient.[facility] HospitalIn the event this information is protected by the Federal Confidentiality of Alcohol and Drug Abuse Patient Records regulations: The Federal rules restrict any use of the information to criminally investigate or prosecute any alcohol or drug abuse patient.[facility] HospitalIn the event this information is protected by the Federal Confidentiality of Alcohol and Drug Abuse Patient Records regulations: The Federal rules restrict any use of the information to criminally investigate or prosecute any alcohol or drug abuse patient.[facility] HospitalIn the event this information is protected by the Federal Confidentiality of Alcohol and Drug Abuse Patient Records regulations: The Federal rules restrict any use of the information to criminally investigate or prosecute any alcohol or drug abuse patient.[facility] HospitalIn the event this information is protected by the Federal Confidentiality of Alcohol and Drug Abuse Patient Records regulations: The Federal rules restrict any use of the information to criminally investigate or prosecute any alcohol or drug abuse patient.[facility] HospitalIn the event this information is protected by the Federal Confidentiality of Alcohol and Drug Abuse Patient Records regulations: The Federal rules restrict any use of the information to criminally investigate or prosecute any alcohol or drug abuse patient.[facility] HospitalIn the event this information is protected by the Federal Confidentiality of Alcohol and Drug Abuse Patient Records regulations: The Federal rules restrict any use of the information to criminally investigate or prosecute any alcohol or drug abuse patient.[facility] HospitalIn the event this information is protected by the Federal Confidentiality of Alcohol and Drug Abuse Patient Records regulations: The Federal rules restrict any use of the information to criminally investigate or prosecute any alcohol or drug abuse patient.[facility] HospitalIn the event this information is protected by the Federal Confidentiality of Alcohol and Drug Abuse Patient Records regulations: The Federal rules restrict any use of the information to criminally investigate or prosecute any alcohol or drug abuse patient.[facility] HospitalIn the event this information is protected by the Federal Confidentiality of Alcohol and Drug Abuse Patient Records regulations: The Federal rules restrict any use of the information to criminally investigate or prosecute any alcohol or drug abuse patient.[facility] HospitalIn the event this information is protected by the Federal Confidentiality of Alcohol and Drug Abuse Patient Records regulations: The Federal rules restrict any use of the information to criminally investigate or prosecute any alcohol or drug abuse patient.[facility] HospitalIn the event this information is protected by the Federal Confidentiality of Alcohol and Drug Abuse Patient Records regulations: The Federal rules restrict any use of the information to criminally investigate or prosecute any alcohol or drug abuse patient.[facility] HospitalIn the event this information is protected by the Federal Confidentiality of Alcohol and Drug Abuse Patient Records regulations: The Federal rules restrict any use of the information to criminally investigate or prosecute any alcohol or drug abuse patient.[facility] HospitalIn the event this information is protected by the Federal Confidentiality of Alcohol and Drug Abuse Patient Records regulations: The Federal rules restrict any use of the information to criminally investigate or prosecute any alcohol or drug abuse patient.[facility] HospitalIn the event this information is protected by the Federal Confidentiality of Alcohol and Drug Abuse Patient Records regulations: The Federal rules restrict any use of the information to criminally investigate or prosecute any alcohol or drug abuse patient.[facility] HospitalIn the event this information is protected by the Federal Confidentiality of Alcohol and Drug Abuse Patient Records regulations: The Federal rules restrict any use of the information to criminally investigate or prosecute any alcohol or drug abuse patient.[facility] HospitalIn the event this information is protected by the Federal Confidentiality of Alcohol and Drug Abuse Patient Records regulations: The Federal rules restrict any use of the information to criminally investigate or prosecute any alcohol or drug abuse patient.[facility] HospitalIn the event this information is protected by the Federal Confidentiality of Alcohol and Drug Abuse Patient Records regulations: The Federal rules restrict any use of the information to criminally investigate or prosecute any alcohol or drug abuse patient.[facility] HospitalIn the event this information is protected by the Federal Confidentiality of Alcohol and Drug Abuse Patient Records regulations: The Federal rules restrict any use of the information to criminally investigate or prosecute any alcohol or drug abuse patient.[facility] HospitalIn the event this information is protected by the Federal Confidentiality of Alcohol and Drug Abuse Patient Records regulations: The Federal rules restrict any use of the information to criminally investigate or prosecute any alcohol or drug abuse patient.[facility] HospitalIn the event this information is protected by the Federal Confidentiality of Alcohol and Drug Abuse Patient Records regulations: The Federal rules restrict any use of the information to criminally investigate or prosecute any alcohol or drug abuse patient.[facility] HospitalIn the event this information is protected by the Federal Confidentiality of Alcohol and Drug Abuse Patient Records regulations: The Federal rules restrict any use of the information to criminally investigate or prosecute any alcohol or drug abuse patient.[facility] HospitalIn the event this information is protected by the Federal Confidentiality of Alcohol and Drug Abuse Patient Records regulations: The Federal rules restrict any use of the information to criminally investigate or prosecute any alcohol or drug abuse patient.[facility] HospitalIn the event this information is protected by the Federal Confidentiality of Alcohol and Drug Abuse Patient Records regulations: The Federal rules restrict any use of the information to criminally investigate or prosecute any alcohol or drug abuse patient.[facility] HospitalIn the event this information is protected by the Federal Confidentiality of Alcohol and Drug Abuse Patient Records regulations: The Federal rules restrict any use of the information to criminally investigate or prosecute any alcohol or drug abuse patient.[facility] HospitalIn the event this information is protected by the Federal Confidentiality of Alcohol and Drug Abuse Patient Records regulations: The Federal rules restrict any use of the information to criminally investigate or prosecute any alcohol or drug abuse patient.[facility] HospitalIn the event this information is protected by the Federal Confidentiality of Alcohol and Drug Abuse Patient Records regulations: The Federal rules restrict any use of the information to criminally investigate or prosecute any alcohol or drug abuse patient.[facility] HospitalIn the event this information is protected by the Federal Confidentiality of Alcohol and Drug Abuse Patient Records regulations: The Federal rules restrict any use of the information to criminally investigate or prosecute any alcohol or drug abuse patient.[facility] HospitalIn the event this information is protected by the Federal Confidentiality of Alcohol and Drug Abuse Patient Records regulations: The Federal rules restrict any use of the information to criminally investigate or prosecute any alcohol or drug abuse patient.[facility] HospitalIn the event this information is protected by the Federal Confidentiality of Alcohol and Drug Abuse Patient Records regulations: The Federal rules restrict any use of the information to criminally investigate or prosecute any alcohol or drug abuse patient.[facility] HospitalIn the event this information is protected by the Federal Confidentiality of Alcohol and Drug Abuse Patient Records regulations: The Federal rules restrict any use of the information to criminally investigate or prosecute any alcohol or drug abuse patient.[facility] HospitalIn the event this information is protected by the Federal Confidentiality of Alcohol and Drug Abuse Patient Records regulations: The Federal rules restrict any use of the information to criminally investigate or prosecute any alcohol or drug abuse patient.[facility] HospitalIn the event this information is protected by the Federal Confidentiality of Alcohol and Drug Abuse Patient Records regulations: The Federal rules restrict any use of the information to criminally investigate or prosecute any alcohol or drug abuse patient.[facility] HospitalIn the event this information is protected by the Federal Confidentiality of Alcohol and Drug Abuse Patient Records regulations: The Federal rules restrict any use of the information to criminally investigate or prosecute any alcohol or drug abuse patient.[facility] HospitalIn the event this information is protected by the Federal Confidentiality of Alcohol and Drug Abuse Patient Records regulations: The Federal rules restrict any use of the information to criminally investigate or prosecute any alcohol or drug abuse patient.[facility] HospitalIn the event this information is protected by the Federal Confidentiality of Alcohol and Drug Abuse Patient Records regulations: The Federal rules restrict any use of the information to criminally investigate or prosecute any alcohol or drug abuse patient.[facility] HospitalIn the event this information is protected by the Federal Confidentiality of Alcohol and Drug Abuse Patient Records regulations: The Federal rules restrict any use of the information to criminally investigate or prosecute any alcohol or drug abuse patient.[facility] HospitalIn the event this information is protected by the Federal Confidentiality of Alcohol and Drug Abuse Patient Records regulations: The Federal rules restrict any use of the information to criminally investigate or prosecute any alcohol or drug abuse patient.[facility] HospitalIn the event this information is protected by the Federal Confidentiality of Alcohol and Drug Abuse Patient Records regulations: The Federal rules restrict any use of the information to criminally investigate or prosecute any alcohol or drug abuse patient.[facility] HospitalIn the event this information is protected by the Federal Confidentiality of Alcohol and Drug Abuse Patient Records regulations: The Federal rules restrict any use of the information to criminally investigate or prosecute any alcohol or drug abuse patient.[facility] HospitalIn the event this information is protected by the Federal Confidentiality of Alcohol and Drug Abuse Patient Records regulations: The Federal rules restrict any use of the information to criminally investigate or prosecute any alcohol or drug abuse patient.[facility] HospitalIn the event this information is protected by the Federal Confidentiality of Alcohol and Drug Abuse Patient Records regulations: The Federal rules restrict any use of the information to criminally investigate or prosecute any alcohol or drug abuse patient.[facility] HospitalIn the event this information is protected by the Federal Confidentiality of Alcohol and Drug Abuse Patient Records regulations: The Federal rules restrict any use of the information to criminally investigate or prosecute any alcohol or drug abuse patient.[facility] HospitalIn the event this information is protected by the Federal Confidentiality of Alcohol and Drug Abuse Patient Records regulations: The Federal rules restrict any use of the information to criminally investigate or prosecute any alcohol or drug abuse patient.[facility] HospitalIn the event this information is protected by the Federal Confidentiality of Alcohol and Drug Abuse Patient Records regulations: The Federal rules restrict any use of the information to criminally investigate or prosecute any alcohol or drug abuse patient.[facility] HospitalIn the event this information is protected by the Federal Confidentiality of Alcohol and Drug Abuse Patient Records regulations: The Federal rules restrict any use of the information to criminally investigate or prosecute any alcohol or drug abuse patient.[facility] HospitalIn the event this information is protected by the Federal Confidentiality of Alcohol and Drug Abuse Patient Records regulations: The Federal rules restrict any use of the information to criminally investigate or prosecute any alcohol or drug abuse patient.[facility] HospitalIn the event this information is protected by the Federal Confidentiality of Alcohol and Drug Abuse Patient Records regulations: The Federal rules restrict any use of the information to criminally investigate or prosecute any alcohol or drug abuse patient.[facility] HospitalIn the event this information is protected by the Federal Confidentiality of Alcohol and Drug Abuse Patient Records regulations: The Federal rules restrict any use of the information to criminally investigate or prosecute any alcohol or drug abuse patient.[facility] HospitalIn the event this information is protected by the Federal Confidentiality of Alcohol and Drug Abuse Patient Records regulations: The Federal rules restrict any use of the information to criminally investigate or prosecute any alcohol or drug abuse patient.[facility] HospitalIn the event this information is protected by the Federal Confidentiality of Alcohol and Drug Abuse Patient Records regulations: The Federal rules restrict any use of the information to criminally investigate or prosecute any alcohol or drug abuse patient.[facility] HospitalIn the event this information is protected by the Federal Confidentiality of Alcohol and Drug Abuse Patient Records regulations: The Federal rules restrict any use of the information to criminally investigate or prosecute any alcohol or drug abuse patient.[facility] HospitalIn the event this information is protected by the Federal Confidentiality of Alcohol and Drug Abuse Patient Records regulations: The Federal rules restrict any use of the information to criminally investigate or prosecute any alcohol or drug abuse patient.[facility] HospitalIn the event this information is protected by the Federal Confidentiality of Alcohol and Drug Abuse Patient Records regulations: The Federal rules restrict any use of the information to criminally investigate or prosecute any alcohol or drug abuse patient.[facility] HospitalIn the event this information is protected by the Federal Confidentiality of Alcohol and Drug Abuse Patient Records regulations: The Federal rules restrict any use of the information to criminally investigate or prosecute any alcohol or drug abuse patient.[facility] HospitalIn the event this information is protected by the Federal Confidentiality of Alcohol and Drug Abuse Patient Records regulations: The Federal rules restrict any use of the information to criminally investigate or prosecute any alcohol or drug abuse patient.[facility] HospitalIn the event this information is protected by the Federal Confidentiality of Alcohol and Drug Abuse Patient Records regulations: The Federal rules restrict any use of the information to criminally investigate or prosecute any alcohol or drug abuse patient.[facility] HospitalIn the event this information is protected by the Federal Confidentiality of Alcohol and Drug Abuse Patient Records regulations: The Federal rules restrict any use of the information to criminally investigate or prosecute any alcohol or drug abuse patient.[facility] HospitalIn the event this information is protected by the Federal Confidentiality of Alcohol and Drug Abuse Patient Records regulations: The Federal rules restrict any use of the information to criminally investigate or prosecute any alcohol or drug abuse patient.[facility] HospitalIn the event this information is protected by the Federal Confidentiality of Alcohol and Drug Abuse Patient Records regulations: The Federal rules restrict any use of the information to criminally investigate or prosecute any alcohol or drug abuse patient.[facility] HospitalIn the event this information is protected by the Federal Confidentiality of Alcohol and Drug Abuse Patient Records regulations: The Federal rules restrict any use of the information to criminally investigate or prosecute any alcohol or drug abuse patient.[facility] HospitalIn the event this information is protected by the Federal Confidentiality of Alcohol and Drug Abuse Patient Records regulations: The Federal rules restrict any use of the information to criminally investigate or prosecute any alcohol or drug abuse patient.[facility] HospitalIn the event this information is protected by the Federal Confidentiality of Alcohol and Drug Abuse Patient Records regulations: The Federal rules restrict any use of the information to criminally investigate or prosecute any alcohol or drug abuse patient.[facility] HospitalIn the event this information is protected by the Federal Confidentiality of Alcohol and Drug Abuse Patient Records regulations: The Federal rules restrict any use of the information to criminally investigate or prosecute any alcohol or drug abuse patient.[facility] HospitalIn the event this information is protected by the Federal Confidentiality of Alcohol and Drug Abuse Patient Records regulations: The Federal rules restrict any use of the information to criminally investigate or prosecute any alcohol or drug abuse patient.[facility] HospitalIn the event this information is protected by the Federal Confidentiality of Alcohol and Drug Abuse Patient Records regulations: The Federal rules restrict any use of the information to criminally investigate or prosecute any alcohol or drug abuse patient.[facility] HospitalIn the event this information is protected by the Federal Confidentiality of Alcohol and Drug Abuse Patient Records regulations: The Federal rules restrict any use of the information to criminally investigate or prosecute any alcohol or drug abuse patient.[facility] HospitalIn the event this information is protected by the Federal Confidentiality of Alcohol and Drug Abuse Patient Records regulations: The Federal rules restrict any use of the information to criminally investigate or prosecute any alcohol or drug abuse patient.[facility] HospitalIn the event this information is protected by the Federal Confidentiality of Alcohol and Drug Abuse Patient Records regulations: The Federal rules restrict any use of the information to criminally investigate or prosecute any alcohol or drug abuse patient.[facility] HospitalIn the event this information is protected by the Federal Confidentiality of Alcohol and Drug Abuse Patient Records regulations: The Federal rules restrict any use of the information to criminally investigate or prosecute any alcohol or drug abuse patient.[facility] HospitalIn the event this information is protected by the Federal Confidentiality of Alcohol and Drug Abuse Patient Records regulations: The Federal rules restrict any use of the information to criminally investigate or prosecute any alcohol or drug abuse patient.[facility] HospitalIn the event this information is protected by the Federal Confidentiality of Alcohol and Drug Abuse Patient Records regulations: The Federal rules restrict any use of the information to criminally investigate or prosecute any alcohol or drug abuse patient.[facility] HospitalIn the event this information is protected by the Federal Confidentiality of Alcohol and Drug Abuse Patient Records regulations: The Federal rules restrict any use of the information to criminally investigate or prosecute any alcohol or drug abuse patient.[facility] HospitalIn the event this information is protected by the Federal Confidentiality of Alcohol and Drug Abuse Patient Records regulations: The Federal rules restrict any use of the information to criminally investigate or prosecute any alcohol or drug abuse patient.[facility] Care Teams (unrecognized sec tion and content) [...] Inactive Member Role Status Dates Janet Dillard DO Primary Care Provider Active Kaylene Lilly DO Attending Provider Active Multi Sensor Operator Relationship Specialty Start Date End Date Rita Amanda PCP - General 01/28/07 Janet Dillard, DO [address] [place] [address] Referring Family Practice 07/14/21 Multi Sensor Operator Relationship Specialty Start Date End Date Rita Amanda PCP - General 01/28/07 Janet Dillard, DO [address] [place] [address] Referring Family Practice 07/14/21 Multi Sensor Operator Relationship Specialty Start Date End Date Rita Amanda PCP - General 01/28/07 Janet Dillard, DO [address] [place] [address] Referring Family Practice 07/14/21 Multi Sensor Operator Relationship Specialty Start Date End Date Rita Amanda PCP - General 01/28/07 Janet Dillard, DO [address] [place] [address] Referring Family Practice 07/14/21 Multi Sensor Operator Relationship Specialty Start Date End Date Rita Amanda PCP - General 01/28/07 Janet Dillard, DO [address] [place] [address] Referring Family Practice 07/14/21 Multi Sensor Operator Relationship Specialty Start Date End Date Kelly Amandanathan Semaj PCP - General 01/28/07 Janet Dillard, DO [address] [place] [address] Referring Family Practice 07/14/21 Multi Sensor Operator Relationship Specialty Start Date End Date Kelly Amandatate Cha PCP - General 01/28/07 Janet Dillard, DO [address] [place] [address] Referring Family Practice 07/14/21 Multi Sensor Operator Relationship Specialty Start Date End Date Treasure Rita Cha PCP - General 01/28/07 Janet Dillard, DO [address] [facility] [place] [address] Referring Family Practice 07/14/21 Multi Sensor Operator Relationship Specialty Start Date End Date Treasure Rita Cha PCP - General 01/28/07 Janet Dillard, DO [address] [place] [place] [address] Referring Family Practice 07/14/21 Multi Sensor Operator Relationship Specialty Start Date End Date Kelly Amandatate Cha PCP - General 01/28/07 Janet Dillard, DO [address] [place] [address] Referring Family Practice 07/14/21 Team Status: Inactive Member Role Status Dates HENRIK Haas Attending Provider Active Emily Benson APRN Referring Provider Active Janet Dillard DO Primary Care Provider Active Multi Sensor Operator Relationship Specialty Start Date End Date Rita Amanda PCP - General 01/28/07 Janet Dillard, DO [address] [place] [address] Referring Family Medicine 07/14/21 Multi Sensor Operator Relationship Specialty Start Date End Date Rita Amanda PCP - General 01/28/07 Janet Dillard, DO [address] [place] [address] Referring Family Medicine 07/14/21 Team Status: Inactive Member Role Status Dates DEEPA Ann Attending Provider Active [facility] Primary Care Provider Active Multi Sensor Operator Relationship Specialty Start Date End Date Rita Amanda PCP - General 01/28/07 Janet Dillard, DO [address] [place] [address] Referring Family Medicine 07/14/21 Multi Sensor Operator Relationship Specialty Start Date End Date Rita Amanda PCP - General 01/28/07 Janet Dillard, DO [address] [place] [address] Referring Family Medicine 07/14/21 Multi Sensor Operator Relationship Specialty Start Date End Date Rita Amanda PCP - General 01/28/07 Janet Dillard, DO [address] [place] [address] Referring Family Medicine 07/14/21 Multi Sensor Operator Relationship Specialty Start Date End Date Rita Amanda PCP - General 01/28/07 Janet Dillard DO [address] [place] [address] Referring Family Medicine 07/14/21 Multi Sensor Operator Relationship Specialty Start Date End Date Rita Amandad PCP - General 01/28/07 Janet Dillard, DO [address] [place] [address] Referring Family Medicine 07/14/21 Multi Sensor Operator Relationship Specialty Start Date End Date CastellaRita swannd PCP - General 01/28/07 Janet Dillard, DO [address] [place] [address] Referring Family Medicine 07/14/21 Multi Sensor Operator Relationship Specialty Start Date End Date Rita Amandad PCP - General 01/28/07 Janet Dillard, DO [address] [place] [address] Referring Family Medicine 07/14/21 Multi Sensor Operator Relationship Specialty Start Date End Date Rita Amandad PCP - General 01/28/07 Janet Dillard, DO [address] [place] [facility] [place] [address] Referring Family Medicine 07/14/21 Multi Sensor Operator Relationship Specialty Start Date End Date Rita Amanda PCP - General 01/28/07 Janet Dillard, DO [address] [place] [address] Referring Family Medicine 07/14/21 Multi Sensor Operator Relationship Specialty Start Date End Date Rita Amanda PCP - General 01/28/07 Janet Dillard DO [address] [facility] [place] [address] Referring Family Medicine 07/14/21 Multi Sensor Operator Relationship Specialty Start Date End Date Rita Amanda PCP - General 01/28/07 Janet Dillard DO [address] [place] [address] Referring Family Medicine 07/14/21 Multi Sensor Operator Relationship Specialty Start Date End Date Sunny Jenkins MD [address] [place] [address] PCP - General Internal Medicine 04/02/23 Multi Sensor Operator Relationship Specialty Start Date End Date Sunny Jenkins MD [address] [place] [address] PCP - General Internal Medicine 04/02/23 Multi Sensor Operator Relationship Specialty Start Date End Date Sunny Jenkins MD [address] [place] [address] PCP - General Internal Medicine 08/22/23 Janet Dilladr DO [address] [facility] [place] [address] Referring Family Medicine 07/14/21 Yvonne Baumann, RN [address] [facility] [place] [address] Specialty Automatic Glove Former Hematology/Oncology 09/23/23 Mitch Neri MD [address] [place] [address] Physician Hematology/Oncology 09/23/23 Cathy Templeton, VERNELLC [address] [facility] [place] [address] Physician Fws Faculty Assistant Hematology/Oncology 09/23/23 Deepika Garcia LSW Platen Press Operator 09/24/23 Multi Sensor Operator Relationship Specialty Start Date End Date Sunny Jenkins MD [address] [facility] [place] [place] [address] PCP - General Internal Medicine 08/22/23 Janet Dillard DO [address] [facility] [place] [address] Referring Family Medicine 07/14/21 Yvonne Baumann RN [address] [facility] [place] [address] Specialty Automatic Glove Former Hematology/Oncology 09/23/23 Mitch Neri MD [address] [facility] [place] [address] Physician Hematology/Oncology 09/23/23 Cathy Templeton PA-C [address] [place] [address] [place] [address] Physician Fws Faculty Assistant Hematology/Oncology 09/23/23 Deepika Garcia LSW Platen Press Operator 09/24/23 Multi Sensor Operator Relationship Specialty Start Date End Date Sunny Jenkins MD [address] [place] [address] PCP - General Internal Medicine 08/22/23 Janet Dillard DO [address] [place], [place] [address] Referring Family Medicine 07/14/21 Yvonne Baumann RN [address] [facility] [place] [address] Specialty Automatic Glove Former Hematology/Oncology 09/23/23 Mitch Neri MD [address] [facility] [place] [address] Physician Hematology/Oncology 09/23/23 Cathy Templeton PA-C [address] [facility] [place] [address] Physician Fws Faculty Assistant Hematology/Oncology 09/23/23 Deepika Garcia LSW Platen Press Operator 09/24/23 Multi Sensor Operator Relationship Specialty Start Date End Date Sunny Jenkins MD [address] [place] [address] PCP - General Internal Medicine 04/02/23 Multi Sensor Operator Relationship Specialty Start Date End Date Sunny Jenkins MD [address] [place] [address] PCP - General Internal Medicine 08/22/23 Janet Dillard DO [address] [facility] [place], [place] [address] Referring Family Medicine 07/14/21 Yvonne Baumann, RN [address] [facility] [place] [address] Specialty Automatic Glove Former Hematology/Oncology 09/23/23 Mitch Neri MD [address] [facility] [place], [place] [address] Physician Hematology/Oncology 09/23/23 Cathy Templeton, PA-C [address] [facility] [place] [address] Physician Fws Faculty Assistant Hematology/Oncology 09/23/23 Deepika Garcia LSW Platen Press Operator 09/24/[address] [place], [place] [address] [facility] [place] [address] Registered Dietitian Nutrition 10/22/23 Multi Sensor Operator Relationship Specialty Start Date End Date Sunny Jenkins MD [address], [place], [place] [id number] PCP - General Internal Medicine 08/22/23 Janet Dillard DO [address] [facility] [place] [address] Referring Family Medicine 07/14/21 Yvonne Baumann, RN [address] [facility] [place] [address] Specialty Automatic Glove Former Hematology/Oncology 09/23/23 Mitch Neri MD [address] [facility] [place] [address] Physician Hematology/Oncology 09/23/23 Cathy Templeton PA-C [address] [place] [address] [place] [address] Physician Fws Faculty Assistant Hematology/Oncology 09/23/23 Deepika Garcia, C APPLICATION DEVELOPER Platen Press Operator 09/24/[address] [place] [address] [place] [address] Registered Dietitian Nutrition 10/22/23 Multi Sensor Operator Relationship Specialty Start Date End Date Sunny Jenkins MD [address] [facility] [place], [place] [id number] PCP - General Internal Medicine 08/22/23 Janet Dillard DO [address] [place] [address] Referring Family Medicine 07/14/21 Yvonne Baumann, RN [address] [place] [address] Specialty Automatic Glove Former Hematology/Oncology 09/23/23 Mitch Neri MD [address] [place] [address] [place] [address] Physician Hematology/Oncology 09/23/23 Cathy Templeton PA-C [address] [place] [address] [place] [address] Physician Fws Faculty Assistant Hematology/Oncology 09/23/23 Deepika Garcia, C APPLICATION DEVELOPER Platen Press Operator 09/24/[address] [place] [address] [place] [address] Registered Dietitian Nutrition 10/22/23 Multi Sensor Operator Relationship Specialty Start Date End Date Sunny Jenkins MD [address] [place] [address] PCP - General Internal Medicine 08/22/23 Janet Dillard DO [address] [facility] [place] [address] Referring Family Medicine 07/14/21 Yvonne Baumann, RN [address] [facility] [place] [address] Specialty Automatic Glove Former Hematology/Oncology 09/23/23 Mitch Neri MD [address] [place] [address] [place] [address] Physician Hematology/Oncology 09/23/23 Cathy Templeton, PA-C [address] [place] [address] [place] [address] Physician Fws Faculty Assistant Hematology/Oncology 09/23/23 Deepika Garcia LSW Platen Press Operator 09/24/[address] [place] [address] [place] [address] Registered Dietitian Nutrition 10/22/23 Multi Sensor Operator Relationship Specialty Start Date End Date Sunny Jenkins MD [address] [place] [address] PCP - General Internal Medicine 08/22/23 Janet Dillard DO [address] [place] [address] Referring Family Medicine 07/14/21 Yvonne Baumann RN 417 [facility] [place] [address] Specialty Automatic Glove Former Hematology/Oncology 09/23/23 Mitch Neri MD 417 [facility] [place] [address] Physician Hematology/Oncology 09/23/23 Cathy Templeton PA-C [address] [place] [address] [place] [address] Physician Fws Faculty Assistant Hematology/Oncology 09/23/23 Deepika Garcia, C APPLICATION DEVELOPER Platen Press Operator 09/24/[address] [place] [address] [place] [address] Registered Dietitian Nutrition 10/22/23 Multi Sensor Operator Relationship Specialty Start Date End Date Sunny Jenkins MD 605 [facility] [place], [place] [id number] PCP - General Internal Medicine 08/22/23 Janet Dillard DO [address] [place] [place], [place] 96[address] Referring Family Medicine 07/14/21 Yvonne Baumann, RN [address] [facility] [place] [address] Specialty Automatic Glove Former Hematology/Oncology 09/23/23 Mitch Neri MD [address] [place] [address] [place] [address] Physician Hematology/Oncology 09/23/23 Cathy Templeton PA-C [address] [place] [address] [place] [address] Physician Fws Faculty Assistant Hematology/Oncology 09/23/23 Deepika Garcia, C APPLICATION DEVELOPER Platen Press Operator 09/24/[address] [facility] [place] [address] Registered Dietitian Nutrition 10/22/23 Multi Sensor Operator Relationship Specialty Start Date End Date Sunny Jenkins MD [address] [place] [address] PCP - General Internal Medicine 08/22/23 Janet Dillard DO [address] [place] [address] Referring Family Medicine 07/14/21 Yvonne Baumann RN [address] [facility] [place] [address] Specialty Automatic Glove Former Hematology/Oncology 09/23/23 Mitch Neri MD [address] [place] [address] [place] [address] Physician Hematology/Oncology 09/23/23 Cathy Templeton, PA-C [address] [place] [address] [place] [address] Physician Fws Faculty Assistant Hematology/Oncology 09/23/23 Deepika Garcia LSW Platen Press Operator 09/24/[address] [place] [address] [place] [address] Registered Dietitian Nutrition 10/22/23 Multi Sensor Operator Relationship Specialty Start Date End Date Sunny Jenkins MD [address] [place] [address] PCP - General Internal Medicine 08/22/23 Janet Dillard DO [address] [place] [address] Referring Family Medicine 07/14/21 Yvonne Baumann, RN [address] [facility] [place] [address] Specialty Automatic Glove Former Hematology/Oncology 09/23/23 Mitch Neri MD [address] [facility] [place] [address] Physician Hematology/Oncology 09/23/23 Cathy Templeton, PA-C [address] [facility] [place] [address] Physician Fws Faculty Assistant Hematology/Oncology 09/23/23 Deepika Garcia LSW Platen Press Operator 09/24/[address] [facility] [place] [address] Registered Dietitian Nutrition 10/22/23 Multi Sensor Operator Relationship Specialty Start Date End Date Sunny Jenkins MD [address] [place], [place] [id number] PCP - General Internal Medicine 04/02/23 Multi Sensor Operator Relationship Specialty Start Date End Date Sunny Jenkins MD [address] [place] [address] PCP - General Internal Medicine 08/22/23 Janet Dillard DO [address] [place] 2015920 Referring Family Medicine 07/14/21 Yvonne Baumann RN [address] [facility] [place] [address] Specialty Automatic Glove Former Hematology/Oncology 09/23/23 Mitch Neri MD 417 [facility] [place] [address] Physician Hematology/Oncology 09/23/23 Cathy Templeton PA-C [address] [facility] [address] [place], [place] 6143070 Physician Fws Faculty Assistant Hematology/Oncology 09/23/23 Deepika Garcia, C APPLICATION DEVELOPER Platen Press Operator 09/24/[address] [place] [address] [place] [address] Registered Dietitian Nutrition 10/22/23 Multi Sensor Operator Relationship Specialty Start Date End Date Sunny Jenkins MD [address] [facility] [place], [place] [id number] PCP - General Internal Medicine 08/22/23 Janet Dillard DO [address] [place] [address] Referring Family Medicine 07/14/21 Yvonne Baumann, RN [address] [facility] [address] [place], [place] 4719470 Specialty Automatic Glove Former Hematology/Oncology 09/23/23 Mitch Neri MD [address] [facility] [place] [address] Physician Hematology/Oncology 09/23/23 Cathy Templeton PA-C [address] [facility] [place] [address] Physician Fws Faculty Assistant Hematology/Oncology 09/23/23 Deepika Garcia, C APPLICATION DEVELOPER Platen Press Operator 09/24/[address] [facility] [place] [address] Registered Dietitian Nutrition 10/22/23 Multi Sensor Operator Relationship Specialty Start Date End Date Sunny Jenkins MD [address] [place], [place] 5976220 PCP - General Internal Medicine 08/22/23 Janet DillardDO [address] [place], [place] 5050920 Referring Family Medicine 07/14/21 Yvonne Baumann RN [address] [facility] [place] [address] Specialty Automatic Glove Former Hematology/Oncology 09/23/23 Mitch Neri MD [address] [place] [address] [place] [address] Physician Hematology/Oncology 09/23/23 Cathy Templeton PAShlomo [address] [place] [address] [address] [place], [place] 4818470 Physician Fws Faculty Assistant Hematology/Oncology 09/23/23 Deepika Garcia LSW Platen Press Operator 09/24/[address] [place] [address] [place] [address] Registered Dietitian Nutrition 10/22/23 Multi Sensor Operator Relationship Specialty Start Date End Date Sunny Jenkins MD [address] [place] [address] PCP - General Internal Medicine 04/02/23 Multi Sensor Operator Relationship Specialty Start Date End Date Sunny Jenkins MD [address] [place], [place] [id number] PCP - General Internal Medicine 04/02/23 Multi Sensor Operator Relationship Specialty Start Date End Date Sunny Jenkins MD [address] [place] [address] PCP - General Internal Medicine 08/22/23 Janet Dillard DO [address] [facility] [place] [address] Referring Family Medicine 07/14/21 Yvonne Baumann, RN 417 [facility] [place] [address] Specialty Automatic Glove Former Hematology/Oncology 09/23/23 Mitch Neri MD [address] [place] [address] [place] [address] Physician Hematology/Oncology 09/23/23 Cathy Templeton, PA-C [address] [place] [address] [place] [address] Physician Fws Faculty Assistant Hematology/Oncology 09/23/23 Deepika Garcia LSW Platen Press Operator 09/24/[address] [place] [address] [place] [address] Registered Dietitian Nutrition 10/22/23 Multi Sensor Operator Relationship Specialty Start Date End Date Sunny Jenkins MD [address] [place] [address] PCP - General Internal Medicine 08/22/23 Janet Dillard DO [address] [place] [address] Referring Family Medicine 07/14/21 Yvonne Baumann RN 417 [facility] [place] [address] Specialty Automatic Glove Former Hematology/Oncology 09/23/23 Mitch Neri MD [address] [place] [address] [place] [address] Physician Hematology/Oncology 09/23/23 Cathy Templeton PA-C [address] [place] [address] [place] [address] Physician Fws Faculty Assistant Hematology/Oncology 09/23/23 Deepika Garcia LSW Platen Press Operator 09/24/[address] [place] [address] [place] [address] Registered Dietitian Nutrition 10/22/23 Multi Sensor Operator Relationship Specialty Start Date End Date Sunny Jenkins MD [address] [place] [address] PCP - General Internal Medicine 04/02/23 Multi Sensor Operator Relationship Specialty Start Date End Date Sunny Jenkins MD [address] [place] [address] PCP - General Internal Medicine 04/02/23 Multi Sensor Operator Relationship Specialty Start Date End Date Sunny Jenkins MD [address] [place] [address] PCP - General Internal Medicine 04/02/23 Multi Sensor Operator Relationship Specialty Start Date End Date Sunny Jenkins MD [address] [place] [address] PCP - General Internal Medicine 08/22/23 Janet Dillard DO [address] [place], [place] 5334120 Referring Family Medicine 07/14/21 Yvonne Baumann RN [address] [facility] [place] [address] Specialty Automatic Glove Former Hematology/Oncology 09/23/23 Mitch Neri MD [address] [facility] [place] [address] Physician Hematology/Oncology 09/23/23 Cathy Templeton PA-C [address] [place] [address] [place] [address] Physician Fws Faculty Assistant Hematology/Oncology 09/23/23 Deepika Garcia LSW Platen Press Operator 09/24/[address] [place] [address] [place] [address] Registered Dietitian Nutrition 10/22/23 Multi Sensor Operator Relationship Specialty Start Date End Date Sunny Jenkins MD [address] [place], [place] [id number] PCP - General Internal Medicine 08/22/23 Janet Dillard DO [address] [place], [place] 5363620 Referring Family Medicine 07/14/21 Yvonne Baumann RN [address] [facility] [place] [address] Specialty Automatic Glove Former Hematology/Oncology 09/23/23 Mitch Neri MD 417 [facility] [place] [address] Physician Hematology/Oncology 09/23/23 Cathy Templeton PA-C [address] [place] [address] [place] [address] Physician Fws Faculty Assistant Hematology/Oncology 09/23/23 Deepika Garcia LSW Platen Press Operator 09/24/[address] [place] [address] [place] [address] Registered Dietitian Nutrition 10/22/23 Multi Sensor Operator Relationship Specialty Start Date End Date Sunny Jenkins MD [address] [place] [address] PCP - General Internal Medicine 08/22/23 Janet Dillard DO [address] [place], [place] 1954120 Referring Family Medicine 07/14/21 Yvonne Baumann RN [address] [place] [address] [address] [place], [facility] Specialty Automatic Glove Former Hematology/Oncology 09/23/23 Mitch Neri MD [address] [place] [address] [place] [id number] Physician Hematology/Oncology 09/23/23 Cathy Templeton, PALeonelC [address] [place] [address] [place] [address] Physician Fws Faculty Assistant Hematology/Oncology 09/23/23 Deepika Garcia LSW Platen Press Operator 09/24/[address] [place] [address] [place] [address] Registered Dietitian Nutrition 10/22/23 Multi Sensor Operator Relationship Specialty Start Date End Date Sunny Jenkins MD [address] [place] [address] PCP - General Internal Medicine 08/22/23 Janet Dillard DO 1479 [facility], [place] 2594220 Referring Family Medicine 07/14/21 Yvonne Baumann, RN [address] [facility] [place] [address] Specialty Automatic Glove Former Hematology/Oncology 09/23/23 Mitch Neri MD [address] [facility] [place] [address] Physician Hematology/Oncology 09/23/23 Cathy Templeton, PALeonelC [address] [place], [place] [address] [place] [address] Physician Fws Faculty Assistant Hematology/Oncology 09/23/23 Deepika Garcia LSW Platen Press Operator 09/24/[address] [place], [place] [address] [place] [address] Registered Dietitian Nutrition 10/22/23 Multi Sensor Operator Relationship Specialty Start Date End Date Sunny Jenkins MD [address], [place] [address] PCP - General Internal Medicine 08/22/23 Janet Dillard DO [address] [facility] [place] [address] Referring Family Medicine 07/14/21 Yvonne Baumann, PRINCE [address] [facility] [place] [address] Specialty Automatic Glove Former Hematology/Oncology 09/23/23 Mitch Neri MD [address] [facility] [place] [address] Physician Hematology/Oncology 09/23/23 Cathy Templeton PA-C [address] [facility] [place] [address] Physician Fws Faculty Assistant Hematology/Oncology 09/23/23 Deepika Garcia, C APPLICATION DEVELOPER Platen Press Operator 09/24/[address] [facility] [address] [place], [place] 5286570 Registered Dietitian Nutrition 10/22/23 Multi Sensor Operator Relationship Specialty Start Date End Date Sunny Jenkins MD [address] [place] [address] [place], [place] [id number] PCP - General Internal Medicine 08/22/23 Janet Dillard DO [address] [place] [address] Referring Family Medicine 07/14/21 Yvonne Baumann, RN [address] [facility] [place] [address] Specialty Automatic Glove Former Hematology/Oncology 09/23/23 Mitch Neri MD [address] [facility] [place] [address] Physician Hematology/Oncology 09/23/23 Cathy Templeton PA-C [address] [facility] [place] [address] Physician Fws Faculty Assistant Hematology/Oncology 09/23/23 Deepika Garcia, C APPLICATION DEVELOPER Platen Press Operator 09/24/[address] [place] [place] [address] Registered Dietitian Nutrition 10/22/23 Multi Sensor Operator Relationship Specialty Start Date End Date Sunny Jenkins MD [address] [place] [address] PCP - General Internal Medicine 08/22/23 Janet Dillard DO [address] [place] [address] Referring Family Medicine 07/14/21 Yovnne Baumann, RN [address] [place] [address] [place] [address] Specialty Automatic Glove Former Hematology/Oncology 09/23/23 Mitch Neri MD [address] [place] [address] [place] [address] Physician Hematology/Oncology 09/23/23 Cathy Templeton, PA-C [address] [place] [address] [place] [address] Physician Fws Faculty Assistant Hematology/Oncology 09/23/23 Deepika Garcia LSW Platen Press Operator 09/24/[address] [place] [address] [place] [address] Registered Dietitian Nutrition 10/22/23 Team Status: Inactive Member Role Status Dates Janet Dillard DO Primary Care Provider Active Start: January 06, 2024 End: January 06, 2024 Citlali Strickland APRN Attending Provider Active Start: January 06, 2024 End: January 06, 2024 Multi Sensor Operator Relationship Specialty Start Date End Date Sunny Jenkins MD [address] [place], [place] [id number] PCP - General Internal Medicine 08/22/23 Janet Dillard DO [address] [place], [place] 0037820 Referring Family Medicine 07/14/21 Yvonne Baumann RN [address] [facility] [place] [address] Specialty Automatic Glove Former Hematology/Oncology 09/23/23 Mitch Neri MD 417 [facility] [place] [address] Physician Hematology/Oncology 09/23/23 Ctahy Templeton PA-C [address] [place] [address] [place] [address] Physician Fws Faculty Assistant Hematology/Oncology 09/23/23 Deepika Garcia LSW Platen Press Operator 09/24/[address] [place] [address] [place] [address] Registered Dietitian Nutrition 10/22/23 Multi Sensor Operator Relationship Specialty Start Date End Date Sunny Jenkins MD [address] [place] [facility], [place] 3824120 PCP - General Internal Medicine 08/22/23 Janet Dillard DO [address] [place], [place] [address]23[address]20 Referring Family Medicine 07/14/21 Yvonne Baumann RN [address] [facility] [place] [address] Specialty Automatic Glove Former Hematology/Oncology 09/23/23 Mitch eNri MD [address] [facility] [place] [address] Physician Hematology/Oncology 09/23/23 Cathy Templeton PA-C [address] [place] [address] [place] [address] Physician Fws Faculty Assistant Hematology/Oncology 09/23/23 Deepika Garcia LSW Platen Press Operator 09/24/[address] [place] [address] [place] [address] Registered Dietitian Nutrition 10/22/23 Multi Sensor Operator Relationship Specialty Start Date End Date Sunny Jenkins MD [address] [place] [address] PCP - General Internal Medicine 08/22/23 Janet Dillard DO [address] [place], [place] 8712120 Referring Family Medicine 07/14/21 Yvonne Baumann RN [address] [place] [place] [address] Specialty Automatic Glove Former Hematology/Oncology 09/23/23 Mitch Neri MD [address] [place] [address] [place] 2638170 Physician Hematology/Oncology 09/23/23 Cathy Templeton, PA-C [address] [place] [address] [place] [address] Physician Fws Faculty Assistant Hematology/Oncology 09/23/23 Deepika Garcia LSW Platen Press Operator 09/24/[address] [place] [address] [place] [address] Registered Dietitian Nutrition 10/22/23 Multi Sensor Operator Relationship Specialty Start Date End Date Sunny Jenkins MD [address] [place] [address] PCP - General Internal Medicine 08/22/23 Janet Dillard DO 1479 [facility] [place], [place] 61496[address] Referring Family Medicine 07/14/21 Yvonne Baumann, RN [address] [facility] [place] [address] Specialty Automatic Glove Former Hematology/Oncology 09/23/23 Mitch Neri MD [address] [facility] [place] [address] Physician Hematology/Oncology 09/23/23 Cathy Templeton, PALeonelC [address] [place], [place] [address] [address] [place], [place] [address]45[address]70 Physician Fws Faculty Assistant Hematology/Oncology 09/23/23 Deepika Garcia LSW Platen Press Operator 09/24/[address] [place], [place] [address] [place] [address] Registered Dietitian Nutrition 10/22/23 Multi Sensor Operator Relationship Specialty Start Date End Date Sunny Jenkins MD [address], [place] [address] PCP - General Internal Medicine 08/22/23 Janet Dillard DO [address] [facility] [place] [address] Referring Family Medicine 07/14/21 Yvonne Baumann, PRINCE [address] [facility] [place] [address] Specialty Automatic Glove Former Hematology/Oncology 09/23/23 Mitch Neri MD 417 [facility] [place] [address] Physician Hematology/Oncology 09/23/23 Cathy Templeton PA-C [address] [facility] [place] [address] Physician Fws Faculty Assistant Hematology/Oncology 09/23/23 Deepika Garcia, C APPLICATION DEVELOPER Platen Press Operator 09/24/[address] [facility] [address] [place], [place] 7999970 Registered Dietitian Nutrition 10/22/23 Multi Sensor Operator Relationship Specialty Start Date End Date Sunny Jenkins MD [address] [place] [address] [id number] PCP - General Internal Medicine 08/22/23 Janet Dillard DO [address] [place], [place] 1435820 Referring Family Medicine 07/14/21 Yvonne Baumann, RN [address] [facility] [place] [address] Specialty Automatic Glove Former Hematology/Oncology 09/23/23 Mitch Neri MD [address] [facility] [place] [address] Physician Hematology/Oncology 09/23/23 Cathy Templeton PA-C [address] [facility] [place] [address] Physician Fws Faculty Assistant Hematology/Oncology 09/23/23 Deepika Garcia, C APPLICATION DEVELOPER Platen Press Operator 09/24/[address] [facility] [place] [address] Registered Dietitian Nutrition 10/22/23 Multi Sensor Operator Relationship Specialty Start Date End Date Sunny Jenkins MD [address] [place] [address] PCP - General Internal Medicine 08/22/23 Janet Dillard DO [address] [place] [address] Referring Family Medicine 07/14/21 Yvonne Baumann, RN 417 [facility] [place] [address] Specialty Automatic Glove Former Hematology/Oncology 09/23/23 Mitch Neri MD [address] [place] [address] [place] [address] Physician Hematology/Oncology 09/23/23 Cathy Templeton, PA-C [address] [place] [address] [place] [address] Physician Fws Faculty Assistant Hematology/Oncology 09/23/23 Deepika Garcia LSW Platen Press Operator 09/24/[address] [place] [address] [place] [address] Registered Dietitian Nutrition 10/22/23 Multi Sensor Operator Relationship Specialty Start Date End Date Sunny Jenkins MD [address] [place] [address] PCP - General Internal Medicine 08/22/23 Janet Dillard DO [address] [place] [address] Referring Family Medicine 07/14/21 Yvonne Baumann RN 417 [facility] [place] [address] Specialty Automatic Glove Former Hematology/Oncology 09/23/23 Mitch Neri MD 417 [facility] [place] [address] Physician Hematology/Oncology 09/23/23 Cathy Templeton PA-C [address] [facility] [place] [address] Physician Fws Faculty Assistant Hematology/Oncology 09/23/23 Deepika Garcia, C APPLICATION DEVELOPER Platen Press Operator 09/24/[address] [facility] [place] [address] Registered Dietitian Nutrition 10/22/23 Multi Sensor Operator Relationship Specialty Start Date End Date Sunny Jenkins MD [address] [facility] [address], [place], [place] [id number] PCP - General Internal Medicine 08/22/23 Janet Dillard DO [address] [place] [address] Referring Family Medicine 07/14/21 Yvonne Baumann, RN [address] [place] [address] Specialty Automatic Glove Former Hematology/Oncology 09/23/23 Mitch Neri MD [address] [place] [address] [place] [address] Physician Hematology/Oncology 09/23/23 Cathy Templeton PA-C [address] [facility] [place] [address] Physician Fws Faculty Assistant Hematology/Oncology 09/23/23 Deepika Garcia, C APPLICATION DEVELOPER Platen Press Operator 09/24/[address] [place] [address] [place] [address] Registered Dietitian Nutrition 10/22/23 Multi Sensor Operator Relationship Specialty Start Date End Date Sunny Jenkins MD [address] [place] [address] PCP - General Internal Medicine 08/22/23 Janet Dillard DO [address] [facility] [place] [address] Referring Family Medicine 07/14/21 Yvonne Baumann, RN [address] [place] [address] Specialty Automatic Glove Former Hematology/Oncology 09/23/23 Mitch Neri MD [address] [place] [address] [place] [address] Physician Hematology/Oncology 09/23/23 Cathy Templeton, PA-C [address] [place] [address] [place] [address] Physician Fws Faculty Assistant Hematology/Oncology 09/23/23 Deepika Garcia LSW Platen Press Operator 09/24/[address] [place] [address] [place] [address] Registered Dietitian Nutrition 10/22/23 Multi Sensor Operator Relationship Specialty Start Date End Date Sunny Jenkins MD [address] [place] [address] PCP - General Internal Medicine 08/22/23 Janet Dillard DO [address] [place], [place] [id number] Referring Family Medicine 07/14/21 Yvonne Baumann RN [address] [facility] [place] [address] Specialty Automatic Glove Former Hematology/Oncology 09/23/23 Mitch Neri MD 417 [facility] [place] [address] Physician Hematology/Oncology 09/23/23 Cathy Templeton PA-C [address] [place] [address] [place] [address] Physician Fws Faculty Assistant Hematology/Oncology 09/23/23 Deepika Garcia LSW Platen Press Operator 09/24/[address] [facility] [place] [address] Registered Dietitian Nutrition 10/22/23 Multi Sensor Operator Relationship Specialty Start Date End Date Sunny Jenkins MD [address] [place] [address] PCP - General Internal Medicine 08/22/23 Janet Dillard DO [address] [place] [address] Referring Family Medicine 07/14/21 Yvonne Baumann RN [address] [facility] [place] [address] Specialty Automatic Glove Former Hematology/Oncology 09/23/23 04/21/24 Mitch Neri MD [address] [facility] [place] [address] Physician Hematology/Oncology 09/23/23 Cathy Templeton PA-C [address] [place] [address] [place] [address] Physician Fws Faculty Assistant Hematology/Oncology 09/23/23 Deepika Garcia, C APPLICATION DEVELOPER Platen Press Operator 09/24/[address] [place] [address] Registered Dietitian Nutrition 10/22/23 Nia Snider, PRINCE Specialty Automatic Glove Former Hematology/Oncology 04/22/24 Multi Sensor Operator Relationship Specialty Start Date End Date Sunny Jenkins MD [address], [place] [address] PCP - General Internal Medicine 08/22/23 Janet Dillard DO [address] [place] [address] Referring Family Medicine 07/14/21 Mitch Neri MD [address] [place] [address] [place] [address] Physician Hematology/Oncology 09/23/23 Deepika Garcia, C APPLICATION DEVELOPER Platen Press Operator 09/24/[address] [place] [address] [place] [address] Registered Dietitian Nutrition 10/22/23 Nia Snider, PRINCE Specialty Automatic Glove Former Hematology/Oncology 04/22/24 Multi Sensor Operator Relationship Specialty Start Date End Date Sunny Jenkins MD [address], [place] [address] PCP - General Internal Medicine 08/22/23 Janet Dillard DO [address] [place] [address] Referring Family Medicine 07/14/21 Yvonne Baumann RN [address] [place] [address] [place] [address] Specialty Automatic Glove Former Hematology/Oncology 09/23/23 04/21/24 Mitch Neri MD [address] [place] [address] Physician Hematology/Oncology 09/23/23 Cathy Templeton, PA-C [address] [place] [address] [place] [address] Physician Fws Faculty Assistant Hematology/Oncology 09/23/23 Deepika Garcia LSW Platen Press Operator 09/24/[address] [place] [address] [place] [address] Registered Dietitian Nutrition 10/22/23 Multi Sensor Operator Relationship Specialty Start Date End Date Sunny Jenkins MD [address] [place] [address] PCP - General Internal Medicine 08/22/23 Janet Dillard DO [address] [place], [place] [address] Referring Family Medicine 07/14/21 Mitch Neri MD [address] [place] [address] Physician Hematology/Oncology 09/23/23 Deepika Garcia LSW Platen Press Operator 09/24/[address] [place] [address] [place] [address] Registered Dietitian Nutrition 10/22/23 Nia Snider RN Specialty Automatic Glove Former Hematology/Oncology 04/22/24 Multi Sensor Operator Relationship Specialty Start Date End Date Sunny Jenkins MD [address] [place] [address] PCP - General Internal Medicine 08/22/23 Janet Dillard DO [address] [place] [address] Referring Family Medicine 07/14/21 Mitch Neri MD 417 [facility] [place] [address] Physician Hematology/Oncology 09/23/23 Deepika Garcia, C APPLICATION DEVELOPER Platen Press Operator 09/24/[address] [facility] [place] [address] Registered Dietitian Nutrition 10/22/23 Nia Snider, RN Specialty Automatic Glove Former Hematology/Oncology 04/22/24 Multi Sensor Operator Relationship Specialty Start Date End Date Sunny Jenkins MD [address] [place] [address] PCP - General Internal Medicine 08/22/23 Janet Dillard DO [address] [place] [address] Referring Family Medicine 07/14/21 Mitch Neri MD 417 [facility] [place] [address] Physician Hematology/Oncology 09/23/23 Deepika Garcia, C APPLICATION DEVELOPER Platen Press Operator 09/24/[address] [facility] [place] [address] Registered Dietitian Nutrition 10/22/23 Nia Snider, PRINCE Specialty Automatic Glove Former Hematology/Oncology 04/22/24 Multi Sensor Operator Relationship Specialty Start Date End Date Sunny Jenkins MD [address] [facility] [place] [address] PCP - General Internal Medicine 08/22/23 Janet Dillard DO [address] [facility] [place] [address] Referring Family Medicine 07/14/21 Mitch Neri MD [address] [place] [address] [place] [address] Physician Hematology/Oncology 09/23/23 Deepika Garcia, C APPLICATION DEVELOPER Platen Press Operator 09/24/[address] [place] [address] [place] [address] Registered Dietitian Nutrition 10/22/23 Nia Snider, PRINCE Specialty Automatic Glove Former Hematology/Oncology 04/22/24 Multi Sensor Operator Relationship Specialty Start Date End Date Sunny Jenkins MD [address] [facility] [place] [address] PCP - General Internal Medicine 08/22/23 Janet Dillard DO [address] [facility] [place] [address] Referring Family Medicine 07/14/21 Mitch Neri MD [address] [place] [address] [place] [address] Physician Hematology/Oncology 09/23/23 Deepika Garcia, C APPLICATION DEVELOPER Platen Press Operator 09/24/[address] [place] [address] [place] [address] Registered Dietitian Nutrition 10/22/23 Nia Snider, RN Specialty Automatic Glove Former Hematology/Oncology 04/22/24 Multi Sensor Operator Relationship Specialty Start Date End Date Sunny Jenkins MD [address] [place] [address] PCP - General Internal Medicine 08/22/23 Janet Dillard DO [address] [facility] [place] [address] Referring Family Medicine 07/14/21 Mitch Neri MD [address] [place] [address] [place] [address] Physician Hematology/Oncology 09/23/23 Deepika Garcia LSW Platen Press Operator 09/24/[address] [place] [address] [place] [address] Registered Dietitian Nutrition 10/22/23 Nia Snider, RN Specialty Automatic Glove Former Hematology/Oncology 04/22/24 Multi Sensor Operator Relationship Specialty Start Date End Date Rita Amanda PCP - General 01/28/07 08/21/23 Janet Dillard DO [address] [facility] [place] [address] Referring Family Medicine 07/14/21 Multi Sensor Operator Relationship Specialty Start Date End Date Sunny Jenkins MD [address] [facility] [place] [address] PCP - General Internal Medicine 08/22/23 Janet Dillard DO [address] [facility] [place] [address] Referring Family Medicine 07/14/21 Mitch Neri MD [address] [facility] [address] Physician Hematology/Oncology 09/23/23 Deepika Garcia, C APPLICATION DEVELOPER Platen Press Operator 09/24/[address] [facility] [place] [address] Registered Dietitian Nutrition 10/22/23 Nia Snider, PRINCE Specialty Automatic Glove Former Hematology/Oncology 04/22/24 Multi Sensor Operator Relationship Specialty Start Date End Date Sunny Jenkins MD [address] [facility] [place] [address] PCP - General Internal Medicine 08/22/23 Janet Dillard DO [address] [facility] [place] [address] Referring Family Medicine 07/14/21 Mitch Neri MD [address] [facility] [address] Physician Hematology/Oncology 09/23/23 Deepika Garcia, C APPLICATION DEVELOPER Platen Press Operator 09/24/[address] [facility] [place] [address] Registered Dietitian Nutrition 10/22/23 Nia Snider, PRINCE Specialty Automatic Glove Former Hematology/Oncology 04/22/24 Multi Sensor Operator Relationship Specialty Start Date End Date Sunny Jenkins MD [address] [facility] [place] [address] PCP - General Internal Medicine 08/22/23 Janet Dillard DO [address] [facility] [place] [address] Referring Family Medicine 07/14/21 Mitch Neri MD 417 [facility] [place] [address] Physician Hematology/Oncology 09/23/23 Deepika Garcia, C APPLICATION DEVELOPER Platen Press Operator 09/24/[address] [facility] [place] [address] Registered Dietitian Nutrition 10/22/23 Nia Snider, PRINCE Specialty Automatic Glove Former Hematology/Oncology 04/22/24 Multi Sensor Operator Relationship Specialty Start Date End Date Sunny Jenkins MD [address] [place] [address] PCP - General Internal Medicine 04/02/23 Multi Sensor Operator Relationship Specialty Start Date End Date Sunny Jenkins MD [address] [facility] [place] [address] PCP - General Internal Medicine 08/22/23 Janet Dillard DO [address] [facility] [place] [address] Referring Family Medicine 07/14/21 Mitch Neri MD [address] [facility] [place] [address] Physician Hematology/Oncology 09/23/23 Deepika Garcia, C APPLICATION DEVELOPER Platen Press Operator 09/24/[address] [facility] [place] [address] Registered Dietitian Nutrition 10/22/23 Nia Snider, RN Specialty Automatic Glove Former Hematology/Oncology 04/22/24 Multi Sensor Operator Relationship Specialty Start Date End Date Sunny Jenkins MD [address] [place] [address] PCP - General Internal Medicine 04/02/23 Multi Sensor Operator Relationship Specialty Start Date End Date Sunny Jenkins MD [address] [place] [address] PCP - General Internal Medicine 04/02/23 Multi Sensor Operator Relationship Specialty Start Date End Date Sunny Jenkins MD [address] [facility] [place] [address] PCP - General Internal Medicine 08/22/23 Janet Dillard DO [address] [place] [address] Referring Family Medicine 07/14/21 Mtich Neri MD [address] [place] [address] [place] [address] Physician Hematology/Oncology 09/23/23 Deepika Garcia LSW Platen Press Operator 09/24/[address] [facility] [place] [address] Registered Dietitian Nutrition 10/22/23 Nia Snider, RN Specialty Automatic Glove Former Hematology/Oncology 04/22/24 Multi Sensor Operator Relationship Specialty Start Date End Date Sunny Jenkins MD [address] [facility] [place] [address] PCP - General Internal Medicine 08/22/23 Janet Dillard DO [address] [facility] [place] [address] Referring Family Medicine 07/14/21 Mitch Neri MD [address] [facility] [place] [address] Physician Hematology/Oncology 09/23/23 Deepika Garcia, C APPLICATION DEVELOPER Platen Press Operator 09/24/[address] [facility] [place] [address] Registered Dietitian Nutrition 10/22/23 Nia Snider, PRINCE Specialty Automatic Glove Former Hematology/Oncology 04/22/24 Multi Sensor Operator Relationship Specialty Start Date End Date Sunny Jenkins MD [address] [facility] [place] [address] PCP - General Internal Medicine 08/22/23 Janet Dillard DO 14[address] [facility] [place], [place] [address] Referring Family Medicine 07/14/21 Mitch Neri MD [address] [facility] [place] [address] Physician Hematology/Oncology 09/23/23 Deepika Garcia, C APPLICATION DEVELOPER Platen Press Operator 09/24/[address] [facility] [place] [address] Registered Dietitian Nutrition 10/22/23 Nia Snider, PRINCE Specialty Automatic Glove Former Hematology/Oncology 04/22/24 Multi Sensor Operator Relationship Specialty Start Date End Date Sunny Jenkins MD [address] [facility] [place] [address] PCP - General Internal Medicine 04/02/23 Multi Sensor Operator Relationship Specialty Start Date End Date Sunny Jenkins MD [address] [facility] [place] [address] PCP - General Internal Medicine 08/22/23 Janet Dillard DO [address] [facility] [place] [address] Referring Family Medicine 07/14/21 Mitch Neri MD [address] [place] [address] [place] [address] Physician Hematology/Oncology 09/23/23 Deepika Garcia LSW Platen Press Operator 09/24/[address] [place] [address] [place] [address] Registered Dietitian Nutrition 10/22/23 Nia Snider, PRINCE Specialty Automatic Glove Former Hematology/Oncology 04/22/24 Multi Sensor Operator Relationship Specialty Start Date End Date Sunny Jenkins MD [address] [facility] [place], [place] [address] PCP - General Internal Medicine 08/22/23 Janet Dillard DO [address] [facility] [place], [place] [address] Referring Family Medicine 07/14/21 Mitch Neri MD [address] [place] [address] [place] [address] Physician Hematology/Oncology 09/23/23 Deepika Garcia LSW Platen Press Operator 09/24/[address] [facility] [place] [address] Registered Dietitian Nutrition 10/22/23 Nia Snider, RN Specialty Automatic Glove Former Hematology/Oncology 04/22/24 Multi Sensor Operator Relationship Specialty Start Date End Date Sunny Jenkins MD [address] [place] [address] PCP - General Internal Medicine 08/22/23 Janet Dillard DO [address] [place], [place] [address] Referring Family Medicine 07/14/21 Mitch Neri MD [address] [facility] [place] [address] Physician Hematology/Oncology 09/23/23 Deepika Garcia, C APPLICATION DEVELOPER Platen Press Operator 09/24/[address] [facility] [place] [address] Registered Dietitian Nutrition 10/22/23 Nia Snider, RN Specialty Automatic Glove Former Hematology/Oncology 04/22/24 Multi Sensor Operator Relationship Specialty Start Date End Date Sunny Jenkins MD [address] [facility] [place] [address] PCP - General Internal Medicine 08/22/23 Janet Dillard DO [address] [place], [place] [address] Referring Family Medicine 07/14/21 Mitch Neri MD 417 [facility] [place] [address] Physician Hematology/Oncology 09/23/23 Deepika Garcia, C APPLICATION DEVELOPER Platen Press Operator 09/24/[address] [place], [place] [address] [place] [address] Registered Dietitian Nutrition 10/22/23 Nia Snider, RN Specialty Automatic Glove Former Hematology/Oncology 04/22/24 Multi Sensor Operator Relationship Specialty Start Date End Date Sunny Jenkins MD [address] [place] [address] PCP - General Internal Medicine 08/22/23 Janet Dillard DO [address] [place], [place] [address] Referring Family Medicine 07/14/21 Mitch Neri MD [address] [place] [address] [place] [address] Physician Hematology/Oncology 09/23/23 Deepika Garcia, C APPLICATION DEVELOPER Platen Press Operator 09/24/[address] [place] [address] [place] [address] Registered Dietitian Nutrition 10/22/23 Nia Snider, RN Specialty Automatic Glove Former Hematology/Oncology 04/22/24 Multi Sensor Operator Relationship Specialty Start Date End Date Sunny Jenkins MD [address] [place] [address] PCP - General Internal Medicine 08/22/23 Janet Dillard DO [address] [place], [place] [address] Referring Family Medicine 07/14/21 Mitch Neri MD [address] [place] [address] [place] [address] Physician Hematology/Oncology 09/23/23 Deepika Garcia LSW Platen Press Operator 09/24/[address] [place] [place] [address] Registered Dietitian Nutrition 10/22/23 Nia Snider, RN Specialty Automatic Glove Former Hematology/Oncology 04/22/24 Multi Sensor Operator Relationship Specialty Start Date End Date Sunny Jenkins MD [address], [place] [address] PCP - General Internal Medicine 04/02/23 Multi Sensor Operator Relationship Specialty Start Date End Date Sunny Jenkins MD [address] [place] [address] PCP - General Internal Medicine 08/22/23 Janet Dillard DO [address] [place] [address] Referring Family Medicine 07/14/21 Mitch Neri MD [address] [facility] [place] [address] Physician Hematology/Oncology 09/23/23 Deepika Garcia LSW Platen Press Operator 09/24/[address] [place] [address] Registered Dietitian Nutrition 10/22/23 Nia Snider, PRINCE Specialty Automatic Glove Former Hematology/Oncology 04/22/24 Reason for Visit (unrecogniz ed section and content) Reason Comments Event Zio patch Reason Comments Results Reason Comments Pain Reason Comments Established Patient Pain Reason Comments Orders Reason Comments New Pain Specialty Diagnoses / Procedures Referred By Contac t Referred To Contact Orthopedics Diagnoses Primary osteoarthritis of left hip Procedures CONSULT TO ORTHOPAEDICS OFFICE/OUTPATIENT NEW HIGH MDM 60-74 MINUTES Nayan Yan, [facility] [address] [place] [address] Referral ID Status Reason Start Date Expiration Date V isits Requested Visits Authorized [id number] Closed PCP Requested Referral 03/23/2022 03/23/2023 1 1 Reason Comments New Patient Evaluation Reason Comments Established Patient Left Hip Pain Reason Comments GERD Reason Comments Reschedule PACC Reason Comments Radiology Mammogram Specialty Diagnoses / Procedures [facility] To [facility] Diagnoses Malignant neoplasm of left female breast, unspecified estrogen receptor status, unspecified site of breast (HCC) Procedures US AXILLA ONLY LEFT US LMTD JOINT/OTH NONVASC XTR STRUX R-T W/[place] [address] [place] [address] [facility] [address] [place] [address] Referral ID Status Reason Start Date Expiration Date V isits Requested Visits Authorized [id number] Closed Auto-Generate d Referral 07/17/2023 08/15/2024 1 1 Reason Comments Consult Reason Comments Automatic Glove Former - Other methotrexate Reason Comments Radiology NM Reason Comments Established Patient Reason Comments Care Coordination appointments Reason Comments Patient Question Reason Comments Sinus Problem Fever Cough Sore Throat Reason Comments Care Coordination Clinical Information Request Reason Comments Care Coordination Treatment reschedule Reason Comments Breast Cancer OTV Reason Comments Nutrition Assessment Specialty Diagnoses / Procedures Referred By [facility] Referred To Contact Diagnoses Invasive lobular carcinoma of breast in female (HCC) Mitch Neri MD [address] [place] [address] Adolfo Treat [address] [place] [address] Referral ID Status Reason Start Date Expiration Date V isits Requested Visits Authorized [id number] Authorized 09/17/2023 12/16/2023 99 99 Reason Comments Disability Madi Reason Comments Post Op Reason Onset Date Comments Med Refill 11/01/2023 Reason Comments Lab Orders Reason Comments Care Coordination PE Reason Comments Breast Cancer Reason Comments Care Coordination Hospital update Reason Comments Care Coordination Hospital d/c follow up call Reason Comments Care Coordination Medication update Reason Comments transistional care Reason Onset Date Comments HomeHealth 11/19/2023 Reason Comments open sores Reason Comments Breast Cancer 1 week follow up Reason Comments First Time Treatment Education Reason Comments Care Coordination C1D1 treatment follo w up call Reason Comments Care Coordination Clinical update Reason Comments Breast Cancer Reason Comments Follow Up Reason Comments Research IRB [id number] Case11 z15 Informed Consent Reason Comments Referral Information Reason Comments Breast Cancer OTV Reason Comments Care Coordination General surgery cons ult Reason Comments CVAD Access Reason Comments Breast Cancer OTV Reason Comments Care Coordination Lab results Reason Comments Referral Information Radiation Reason Comments Care Coordination Change in treatment plan Reason Comments Patient Education Reason Comments Breast Cancer Follow up Reason Comments Care Coordination Transition of care Reason Comments Appointment Reason Comments Cataract Evaluation Reason Comments Radiotherapy On-treatment Visit Reason Comments Breast Cancer Treatment visit Referral ID Status Reason Start Date Expiration Date V isits Requested Visits Authorized [id number] Authorized 03/03/2024 06/01/2024 99 99 Reason Onset Date Comments SPP Oral Oncology/hematology - Treatment Referra l 04/22/2024 Verzenio 150mg Insurance Authorization 04/22/2024 PA pendi ng Reason Comments Patient Update Post Radiation Nurse Call Reason Comments New Patient Reason Comments Blood Draw (CVAD) Reason Comments medical records Reason Comments Oral Anti-cancer Agent Education Verzeni o Reason Comments Pre-Op Visit Reason Comments Pre-Op Exam Reason Comments Post-Op Visit Reason Comments Medication Dosage Adjustment Verzenio Reason Comments Post-op Cataract OS Reason Comments Annual Exam MAW Reason Onset Date Comments Referral 06/10/2024 Reason Comments Post-op Cataract OD Reason Comments Radiology US Reason Comments Med Refill Reason Comments Post-op (Ophthalmology) Both Eyes Reason Comments Results Orders Reason Comments Thyroid Problem Reason Comments Established Patient Reason Onset Date Comments SPP Oral Oncology/hematology - Treatment Referra l 07/16/2024 Kisqali 400 mg Insurance Authorization 07/16/2024 PA pendi ng Reason Comments Refill Request Reason Onset Date Comments Med Refill 07/22/2024 Goals (unrecognized section and content) Goals may [...] 1 dose, On Sat11/05/23 at 1100, EXP: 109911/06/23 Hazardous Chemotherapy Drug: Use appropriate PPE. New [...] Sat11/05/23 at 1100, CAUTION: vesicant -- EXP: 109911/06/23 Administer total dose over 15 minutes. Hazardous [...] Given 11/05/2023 10:53 AM EDT 0.25 mg Inactive Administered Medications - up to 3 most recent administrations Medication Order MAR Action Action Date Dose Rate Site dexAMETHasone 10 mg in NaCl 0.9% 50 mL (DECADRON) 10 mg, INTRAVENOUS, ONCE, 1 dose, On Sat12/03/23 at 1200, Administer 30 minutes prior to infusion. Refrigerate. New Bag/Syringe/Bottle 12/03/2023 11:44 AM EDT 10 mg diphenhydrAMINE 25 mg injection (BENADRYL) 25 mg, INTRAVENOUS, ONCE, 1 dose, On Sat12/03/23 at 1200, Give prior to chemotherapy. Given 12/03/2023 11:44 AM EDT 25 mg famotidine 20 mg injection (PEPCID) 20 mg, INTRAVENOUS, ONCE, 1 dose, On Sat12/03/23 at 1200, Give prior to chemotherapy. REFRIGERATE Given 12/03/2023 11:44 AM EDT 20 mg PACLitaxel 180 mg in NaCl 0.9% 305 mL (TAXOL) 180 mg (rounded from 187.2 mg = 80 mg/m2 2.34 m2 Treatment Plan BSA from Recorded weight), INTRAVENOUS, Administer over 1 Hours, ONCE, 1 dose, On Sat12/03/23 at 1200, EXP: 12/04/2023 1740 RT Hazardous Chemotherapy Drug: Use appropriate PPE. Antineoplastic Irritant with Vesicant Potential. Administer with non-DEHP 0.2 micron filter and tubing. New Bag/Syringe/Bottle 12/03/2023 12:19 PM EDT 180 mg FOR RECORDS PERTAINING TO PATIENTS WHO [...] BE BASED ON THE PRIMARY CLINICAL RECORDS. [employer] provides no warranty or guarantee of the accuracy or completeness of information in this document.
--- NOTE | 2024-07-25 16:05 | ECG_ITS ---
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
--- NOTE | 2024-07-25 16:05 | XR_ITS ---
The [address] [address] Patient Name: MINAL CAPUTO MRN: [id number] date: 1955 Sex: F Assigned Patient Location: ER Current Patient Location: Accession/Order Number: [id number] Exam Date: 07/25/2024 16:22 Report Date: 07/25/2024 17:34 At the request of: LUIS VILLA Procedure: XR chest 1V EXAM: CHEST X-RAY HISTORY: Chest pain. Left mastectomy with breast cancer COMPARISON: 11/16/2023 TECHNIQUE: 1 view chest is submitted for review. FINDINGS: Lines and tubes: Port-A-Cath is seen on the right. The lungs are hyperexpanded. No infiltrate. No effusion. The cardiac silhouette is enlarged.. Pulmonary vascularity is unremarkable. Osseous structures demonstrate postoperative changes of the spine from scoliosis. XR/XR chest 1V IMPRESSION: 1. Cardiomegaly with pulmonary edema and trace effusions. 2. Hyperexpanded lungs which can be seen in the setting of COPD. 3. Airspace opacities lung bases. Please correlate for pneumonia versus atelectasis. Electronically authenticated by: NAYAN SOLARES Date: 07/25/2024 17:34
--- NOTE | 2024-07-25 16:15 | ED_ITS ---
HPI HPI - General Adult General Chief complaint: Upper Respiratory Infection Stated complaint: diff breathing Time Seen by Provider: 07/25/24 16:05 Source: patient Mode of arrival: Wheelchair Limitations: no limitations History of Present Illness HPI narrative: 68-year-old female presents to the emergency department with complaint of not feeling well over the past 2-3 days. Patient complains of sinus pressure, nasal drainage, posterior nasal drip. She has had progressively worsening shortness of breath. States she does have history of PE, is not on any anticoagulants. Patient has history of breast cancer and has completed chemo and radiation therapies. Denies any known fevers, chest pain, cough. Quality:?As above Severity:?Moderate Timing:?As above, constant, worsening Context: Normal setting and activity? Modifying factors:?Worse with exertion Associated symptoms: As a Related Data Home Medications ?Medication ?Instructions ?Recorded ?Confirmed cholecalciferol (vitamin D3) 125 125 mcg PO DAILY 01/25/23 11/16/23 mcg (5,000 unit) capsule metoprolol tartrate 50 mg tablet 50 mg PO BID 01/25/23 11/16/23 multivitamin 1 tab PO DAILY 01/25/23 11/16/23 potassium chloride 10 mEq 10 meq PO DAILY 01/25/23 11/16/23 capsule,extended release folic acid 1 mg tablet 1 mg PO .QD 11/06/23 11/16/23 atorvastatin 40 mg tablet 40 mg PO .QHS 11/16/23 11/16/23 losartan 50 mg tablet (Cozaar) 50 mg PO DAILY 11/16/23 11/16/23 methotrexate sodium 2.5 mg tablet 15 mg PO .Saturday11/16/23 11/16/23 Previous Rx's ?Medication ?Instructions ?Recorded apixaban 5 mg tablet (Eliquis) 5 mg PO Q12H 30 days #72 tabs 11/08/23 furosemide 20 mg tablet 40 mg (2 x 20 mg) PO DAILY #0 tabs 11/08/23 spironolactone 25 mg tablet 25 mg PO DAILY #30 tabs 11/08/23 (Aldactone) cefprozil 500 mg tablet 500 mg PO BID 10 days #20 tabs 11/19/23 doxycycline hyclate 100 mg tablet 100 mg PO BID 10 days #20 tabs 11/19/23 ciprofloxacin HCl 500 mg tablet 500 mg PO BID 10 days #20 tabs 01/08/24 (Cipro) fluconazole 150 mg tablet 150 mg PO Q3D 2 doses #2 tabs 01/08/24 metronidazole 500 mg tablet 500 mg PO Q12H 10 days #20 tabs 01/08/24 oxycodone-acetaminophen 5 mg-325 1 tab PO Q6H #14 tabs 01/08/24 mg tablet (Percocet) ciprofloxacin HCl 500 mg tablet 500 mg PO Q12H 10 days #20 tabs 05/04/24 (Cipro) metronidazole 500 mg tablet 500 mg PO Q8H 10 days #30 tabs 05/04/24 oxycodone-acetaminophen 5 mg-325 1 tab PO Q8H PRN pain 4 days #12 05/04/24 mg tablet (Percocet) tabs chlorpheniramine-dextromethorphan 1 tab PO Q6H PRN sinus symptoms 07/25/24 4 mg-30 mg tablet (Coricidin HBP #14 tabs Cough and Cold) doxycycline hyclate 100 mg capsule 100 mg PO BID 7 days #14 caps 07/25/24 Allergies Allergy/AdvReac Type Severity Reaction Status Date / Time fentanyl Allergy Intermediate Verified 11/16/23 04:53 Sulfa (Sulfonamide Allergy Intermediate Verified 11/16/23 04:53 Antibiotics) adhesive tape AdvReac Intermediate Verified 11/16/23 04:53 Opioid HPI Opioid Management Most Recent Opioid Data: Last Pain Scale 8 01/08/24 11:24 01/08/24 Last ORT Total Score 0 11/16/23 10:35 11/16/23 Last ORT Risk Category Low Risk 11/16/23 10:35 11/16/23 Review of Systems ROS Narrative Constitutional: Denies fever, chills, fatigue HENT: + sinus pressure, rhinorrhea, post nasal drip. Denies ear pain, sore throat, diff swallowing, voice change Eyes: Denies discharge, eye redness Respiratory: + shortness of breath. Denies cough Cardiovascular: Denies chest pain, palpitations MS: + leg pain (chronic, unchanged). Feel left arm may have some increased edema. GI: Denies abd pain, n/v Neuro: + headache PFSH PFSH Medical History Breast cancer, left breast ?C50.912 - Malignant neoplasm of unspecified site of left female breast (ICD- 10) Pulmonary embolism and infarction ?I26.99 - Other pulmonary embolism without acute cor pulmonale (ICD-10) Pulmonary embolism on right ?I26.99 - Other pulmonary embolism without acute cor pulmonale (ICD-10) Lymph node cancer ?C77.9 - Secondary and unspecified malignant neoplasm of lymph node, unspecified (ICD-10) Numbness and tingling of both lower extremities ?R20.0 - Anesthesia of skin (ICD-10) ?R20.2 - Paresthesia of skin (ICD-10) 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 - Postmastectomy lymphedema syndrome (ICD-10) Rheumatoid arthritis ?M06.9 - Rheumatoid arthritis, unspecified (ICD-10) Spinal stenosis ?M48.00 - Spinal stenosis, site unspecified (ICD-10) Kidney stones ?N20.0 - Calculus of kidney (ICD-10) Heart murmur ?R01.1 - Cardiac murmur, unspecified (ICD-10) Scoliosis ?M41.9 - Scoliosis, unspecified (ICD-10) Hyperlipemia ?E78.5 - Hyperlipidemia, unspecified (ICD-10) Obesity ?E66.9 - Obesity, unspecified (ICD-10) Borderline diabetes ?R73.03 - Prediabetes (ICD-10) Breast cancer ?C50.919 - Malignant neoplasm of unspecified site of unspecified female breast (ICD-10) Edema ?R60.9 - Edema, unspecified (ICD-10) GERD (gastroesophageal reflux disease) ?K21.9 - Gastro-esophageal reflux disease without esophagitis (ICD-10) COPD (chronic obstructive pulmonary disease) ?J44.9 - Chronic obstructive pulmonary disease, unspecified (ICD-10) HTN (hypertension) ?I10 - Essential (primary) hypertension (ICD-10) Surgical History History of mastectomy ?Z90.10 - Acquired absence of unspecified breast and nipple (ICD-10) History of total left knee replacement ?Z96.652 - Presence of left artificial knee joint (ICD-10) History of total right knee replacement ?Z96.651 - Presence of right artificial knee joint (ICD-10) History of back surgery ?Z98.890 - Other specified postprocedural states (ICD-10) Family History Father Family history of CHF (congestive heart failure) Family history of cancer Family history of hypertension Sister Family history of stroke Mother Family history of cancer Family history of hypertension Social History Within the past year, how often did you have a drink containing alcohol: never Within the past year, how many standard drinks containing alcohol did you have on a typical day: 1 or 2 Within the past year, how often did you have six or more drinks on one occasion: never Total score: 0 Score interpretation: A score less than 3 is consistent with normal alcohol consumption. Smoking status: Never smoker Second hand tobacco smoke exposure: No Non-prescribed substance use: denies use Previous occupational history: none Known occupational exposures/hazards: No Highest level of school completed/degree received: some college, no degree Do you want help with school or training: No Are you now , , , , never or living with a partner: don't know In a typical week, how many times do you talk on the telephone with family, friends, or neighbors: 3 or more times per week How often do you get together with friends or relatives: once per week How often do you attend congregation or denominational services: never Do you belong to any clubs or organizations such as congregation groups unions, fraternal or athletic groups, or school groups: no Total score: 1 Score interpretation: A score of less than or equal to 1 indicates the most socially isolated. Little interest or pleasure in doing things: not at all Feeling down, depressed, or hopeless: not at all Feel stressed/tense/nervous/anxious/difficulty sleeping: to some extent Life stressors: other Life stressor details: diagnosis with breast cancer Due to disability, difficulty making decisions: No Do you think of yourself as: decline to answer Gender Identity: decline to answer Exam Narrative Exam Narrative: Vital signs noted Nurses notes reviewed CONST:? Nontoxic, well appearing, well nourished, in no distress.? HENT: normocephalic, atraumatic.? Normal hearing.? + retracted left TM. No erythema, injection bilat. Normal appearing ext ears, canals. No nasal discharge.? + Posterior oropharyngeal streaking consistent with postnasal drip. Moist mucous membranes, no edema, exudate.? No trismus, maintaining own secretions. EYES: No injection, discharge NECK: supple, no lymphadenopathy CV: normal rate, regular rhythm, no murmur RESP: normal effort, speaking in complete sentences. Lung sounds clear and equal bilat.? No wheezes, rales, rhonchi? NEURO: A&Ox3, steady gait, normal station SKIN: intact, warm, dry, no pallor PSYCHIATRIC: normal mood, affect Constitutional Vital Signs, click to edit/add: Last Vital Signs Temp 98.0 F 07/25/24 15:59 Pulse 73 07/25/24 19:10 Resp 18 07/25/24 19:10 BP 133/66 07/25/24 19:01 Pulse Ox 96 07/25/24 19:10 O2 Del Method Room Air 07/25/24 15:59 Course Vital Signs Vital signs: Vital Signs Temperature 98.0 F 07/25/24 15:59 Pulse Rate 79 07/25/24 15:59 Respiratory Rate 24 H 07/25/24 15:59 Blood Pressure 158/76 H 07/25/24 15:59 Pulse Oximetry 99 07/25/24 15:59 Oxygen Delivery Method Room Air 07/25/24 15:59 Temperature 98.0 F 07/25/24 15:59 Pulse Rate 73 07/25/24 19:10 Respiratory Rate 18 07/25/24 19:10 Blood Pressure 133/66 07/25/24 19:01 Pulse Oximetry 96 07/25/24 19:10 Oxygen Delivery Method Room Air 07/25/24 15:59 Medical Decision Making [facility] Narrative Medical decision making narrative: This is a pleasant 68-year-old female who presented to the emergency department with complaint of sinus pressure and shortness of breath. History of PE in the past, not anticoagulated. Patient with history of breast cancer for which she completed chemotherapy and radiation. Denies chest pain, cough. On arrival, afebrile, vital signs are stable. On exam, nontoxic, well-appearing patient in no distress. Her left TM is retracted, otherwise no injection, erythema noted. Right TM was clear. Throat had posterior oropharyngeal streaking consistent with Post nasal drip. Heart regular rate and rhythm. Lung sounds clear and equal bilaterally. EKG performed which showed no acute or concerning changes IV access established through her port, labs are drawn and sent. Labs reveal no leukocytosis, worsening anemia, thrombocytopenia, electrolyte imbalance. She does have some mild elevation of her creatinine to 1.41. It is improved compared to 05/04/2024 when she was 18 and 1.42, respectively. COVID screen was negative. D-dimer elevated 0.73. Chest x-ray imaging, per radiologist reveals no acute or concerning changes CT chest imaging, per radiologist reveals no large central pulmonary embolism with limited evaluation of the lobar, interlobar, segmental and subsegmental pulmonary arteries due to suboptimal contrast bolus. Patient remained stable during course. She was not tachycardic or hypoxic. Discussed with patient results, plan, and disposition. She is agreeable with plan. Favor sinusitis, nonspecific shortness of breath PE, pneumonia less likely based on imaging History and record review Additional records reviewed: Prior labs: See MDM narrative above Management Independent interpretation: Imaging: Chest x-ray: No infiltrate, edema or other acute findings Additional tests and interventions ECG: See below IV fluids: Hydration Diagnostic testing considered but not performed: Troponins as patient did not have chest pain, lung sounds were clear, vital signs are stable, no concerning changes on EKG. Reevaluation: Vital signs in acceptable range Disposition ? The patient was discharged. Plan: Patient will be discharged to home. Condition at time of disposition: stable Prescription for doxycycline, Coricidin sent to her pharmacy Advised to follow up with primary provider. Advised to return for any wo rsening and/or development of new, concerning signs or symptoms Admission was considered, but she was negative for PE, pneumonia and had stable vital signs. PLEASE NOTE: Portions of the medical record may have been produced using electronic principal examiner and may contain errors with respect to translation of words which may not have been identified prior to finalization of the chart. Medical Records Medical records reviewed: Yes I reviewed the patient's medical records Lab Data Lab results reviewed: Yes I reviewed the patient's lab results Labs: Lab Results 07/25/24 07/25/24 Range/Units 16:05 16:20 WBC 6.3 (4.0-11.0) 10^3/uL RBC 3.38 L (4.20-5.40) 10^6/uL Hgb 11.1 L (12.0-16.0) g/dL Hct 33.3 L (36.0-48.0) % MCV 98.5 (81.0-99.0) fL MCH 32.8 (26.7-34.0) pg MCHC 33.3 (29.9-35.2) g/dL RDW 16.1 H (11.0-15.0) % Plt Count 383 (150-450) 10^3/uL MPV 8.8 L (9.5-13.5) fL Neut % (Auto) 62.8 (43.0-75.0) % Lymph % (Auto) 16.6 L (20.5-60.0) % Miner % (Auto) 13.4 H (1.7-12.0) % Eos % (Auto) 5.8 (0.9-7.0) % Baso % (Auto) 1.1 (0.2-2.0) % Neut # (Auto) 3.9 (1.4-6.5) 10^3/uL Lymph # (Auto) 1.0 L (1.2-3.8) 10^3/uL Miner # (Auto) 0.8 (0.3-0.8) 10^3/uL Eos # (Auto) 0.4 (0.0-0.7) 10^3/uL Baso # (Auto) 0.1 (0.0-0.1) 10^3/uL Abs Immat Gran (auto) 0.02 (0.00-0.03) 10^3/uL Imm/Tot Granulo (auto) 0.3 (0.0-0.5) % PT 10.8 (9.0-11.6) sec INR 1.02 APTT 24.2 (22.3-36.2) sec D-Dimer 0.73 H* (<=0.59) mg/L FEU Sodium 142 (136-145) mmol/L Potassium 4.2 (3.5-5.1) mmol/L Chloride 105 (98-107) mmol/L Carbon Dioxide 26.1 (21.0-32.0) mmol/L Anion Gap 15.1 BUN 15.0 (7.0-18.0) mg/dL Creatinine 1.41 H (0.55-1.02) mg/dL Est GFR ( Amer) 45 L (>=60 mL/min/1.73m^2) Est GFR (Non-Af Amer) 37 L (>=60 mL/min/1.73m^2) BUN/Creatinine Ratio 10.6 Glucose 126 H (74-106) mg/dL Calcium 8.6 (8.5-10.1) mg/dL Magnesium 2.2 (1.8-2.4) mg/dL Total Bilirubin 0.4 (0.2-1.0) mg/dL AST 16 (15-37) U/L ALT 25 (14-59) U/L Alkaline Phosphatase 86 (46-116) U/L Troponin I High Sens 11.9 (4.0-51.3) pg/mL Total Protein 6.5 (6.4-8.2) g/dL Albumin 3.2 L (3.4-5.0) g/dL Globulin 3.3 g/dL Albumin/Globulin Ratio 1.0 SARS-CoV-2 Ag (CV2AG) Negative (NEGATIVE) Imaging Data Chest x-ray, CT chest: Radiologist's impression: ITS Impressions Chest X-Ray 07/25/24 16:05 IMPRESSION: 1. Cardiomegaly with pulmonary edema and trace effusions. 2. Hyperexpanded lungs which can be seen in the setting of COPD. 3. Airspace opacities lung bases. Please correlate for pneumonia versus atelectasis. Electronically authenticated by: NAYAN SOLARES Date: 07/25/2024 17:[address] 07/25/24 17:08 IMPRESSION: 1. No large central pulmonary embolism with limited evaluation of the lobar, interlobar, segmental and subsegmental pulmonary arteries due to suboptimal contrast bolus. 2. Otherwise evidence of acute intrathoracic abnormality. 3. Large hiatal hernia containing most of the stomach. Associated segmental subsegmental atelectasis of the left lower lobe. Electronically authenticated by: DAMIAN LLOYD Date: 07/25/2024 19:12 ECG Data Attestation: I personally reviewed and interpreted this ECG as follows: (EKG performed at 1605 hrs. reveals sinus rhythm at 75 bpm. No ischemia, ectopy, ST elevation noted. No other additional concerning changes noted. Normal axis.) Discharge Plan Discharge Chief Complaint: Upper Respiratory Infection Clinical Impression: Shortness of breath Sinusitis Qualifiers: Sinusitis location: pansinusitis Chronicity: acute Recurrence: not specified as recurrent Qualified Code(s): J01.40 - Acute pansinusitis, unspecified Patient Disposition: Home, Self-Care Time of Disposition Decision: 19:40 Condition: Good Mode of Transportation: Private Vehicle Prescriptions / Home Meds: New doxycycline hyclate 100 mg capsule 100 mg PO BID 7 Days Qty: 14 0RF Coricidin HBP Cough and Cold 4-30 mg tablet 1 tab PO Q6H PRN (Reason: sinus symptoms) Qty: 14 0RF No Action folic acid 1 mg tablet 1 mg PO .QD Rx Instructions: EXCEPT ON SATURDAY spironolactone [Aldactone] 25 mg tablet 25 mg PO DAILY Qty: 30 0RF Eliquis 5 mg tablet 5 mg PO Q12H 30 Days Qty: 72 0RF Rx Instructions: use 2 pills twice a day for 6 days, take 1 pill twice a day for 24 days. furosemide 20 mg tablet 40 mg PO DAILY Qty: 0 0RF ciprofloxacin HCl [Cipro] 500 mg tablet 500 mg PO Q12H 10 Days Qty: 20 0RF metronidazole 500 mg tablet 500 mg PO Q8H 10 Days Qty: 30 0RF oxycodone-acetaminophen [Percocet] 5-325 mg tablet 1 tab PO Q8H PRN (Reason: pain) 4 Days Qty: 12 0RF metoprolol tartrate 50 mg tablet 50 mg PO BID multivitamin Tablet 1 tab PO DAILY cholecalciferol (vitamin D3) 125 mcg (5,000 unit) capsule 125 mcg PO DAILY potassium chloride 10 mEq capsule, extended release 10 meq PO DAILY methotrexate sodium 2.5 mg tablet 15 mg PO .SATURDAY losartan [Cozaar] 50 mg tablet 50 mg PO DAILY atorvastatin 40 mg tablet 40 mg PO .QHS doxycycline hyclate 100 mg tablet 100 mg PO BID 10 Days Qty: 20 0RF cefprozil 500 mg tablet 500 mg PO BID 10 Days Qty: 20 0RF oxycodone-acetaminophen [Percocet] 5-325 mg tablet 1 tab PO Q6H Qty: 14 0RF ciprofloxacin HCl [Cipro] 500 mg tablet 500 mg PO BID 10 Days Qty: 20 0RF metronidazole 500 mg tablet 500 mg PO Q12H 10 Days Qty: 20 0RF fluconazole 150 mg tablet 150 mg PO Q3D Qty: 2 0RF Print Language: Georgian Instructions: Sinusitis (ED), Shortness of Breath (ED) Referrals: Sunny Jenkins ND [Primary Care Provider] - 1 week Discharge Date/Time: 07/25/24 20:00
[2024-07-25 16:25] LABS: Basophils Absolute Auto 0.1 10^3/uL (0.0-0.1); Basophils Percent Auto 1.1 % (0.2-2.0); Eosinophils Absolute Auto 0.4 10^3/uL (0.0-0.7); Eosinophils Percent Auto 5.8 % (0.9-7.0); Hematocrit 33.3 % (36.0-48.0); Hemoglobin 11.1 g/dL (12.0-16.0); Immature Granulocytes Abs Auto 0.02 10^3/uL (0.00-0.03); Immature Granulocytes Pct Auto 0.3 % (0.0-0.5); Lymphocytes Percent Auto 16.6 % (20.5-60.0); Mean Corpuscular HGB Conc 33.3 g/dL (29.9-35.2); Mean Corpuscular Hemoglobin 32.8 pg (26.7-34.0); Mean Corpuscular Volume 98.5 fL (81.0-99.0); Mean Platelet Volume 8.8 fL (9.5-13.5); Monocytes Absolute Auto 0.8 10^3/uL (0.3-0.8); Monocytes Percent Auto 13.4 % (1.7-12.0); Neutrophils Absolute Auto 3.9 10^3/uL (1.4-6.5); Neutrophils Percent Auto 62.8 % (43.0-75.0); Platelet Count 383 10^3/uL (150-450); Red Blood Count 3.38 10^6/uL (4.20-5.40); Red Cell Distribution Width 16.1 % (11.0-15.0); White Blood Count 6.3 10^3/uL (4.0-11.0)
[2024-07-25 16:35] LABS: Magnesium 2.2 mg/dL (1.8-2.4)
[2024-07-25 16:40] LABS: Partial Thromboplastin Time 24.2 sec (22.3-36.2)
[2024-07-25 16:40] LABS: Internal Control Within Normal Limits; SARS-CoV-2 Ag NEGATIVE (NEGATIVE)
[2024-07-25 16:42] LABS: Alanine Aminotransferase 25 U/L (14-59); Albumin Level 3.2 g/dL (3.4-5.0); Alkaline Phosphatase 86 U/L (46-116); Anion Gap 15.1; Aspartate Amino Transferase 16 U/L (15-37); BUN Creatinine Ratio 10.6; Bilirubin Total 0.4 mg/dL (0.2-1.0); Calcium 8.6 mg/dL (8.5-10.1); Carbon Dioxide 26.1 mmol/L (21.0-32.0); Chloride 105 mmol/L (98-107); Estimated GFR (African America 45 (>=60 mL/min/1.73m^2); Estimated GFR (Non-African Ame 37 (>=60 mL/min/1.73m^2); Globulin 3.3 g/dL; Glucose 126 mg/dL (74-106); Potassium 4.2 mmol/L (3.5-5.1); Sodium 142 mmol/L (136-145); Total Protein 6.5 g/dL (6.4-8.2)
[2024-07-25 16:44] LABS: Troponin I High Sensitivity 11.9 pg/mL (4.0-51.3)
[2024-07-25 17:07] LABS: INR 1.02; Prothrombin Time 10.8 sec (9.0-11.6)
[2024-07-25 17:08] LABS: D Dimer 0.73 mg/L FEU (<=0.59)
--- NOTE | 2024-07-25 17:08 | CT_ITS ---
The [address] [address] Patient Name: MINAL CAPUTO MRN: [id number] date: 1955 Sex: F Assigned Patient Location: ER Current Patient Location: Accession/Order Number: [id number] Exam Date: 07/25/2024 17:35 Report Date: 07/25/2024 19:12 At the request of: RAKESH QUEVEDO Procedure: CT chest w con EXAM: CT chest w con HISTORY: elevated d-dimer, short of breath COMPARISON: 11/05/2023 TECHNIQUE: CT angiography of the pulmonary arteries following the administration of intravenous contrast. Coronal and sagittal MIP (maximum intensity projection) images were performed. Dose reduction techniques were achieved by using automated exposure control and/or adjustment of mA and/or kV according to patient size and/or use of iterative reconstruction technique. FINDINGS: The study is technically limited for the diagnosis of pulmonary embolism within the lobar, interlobar, segmental and subsegmental pulmonary arteries. TUBES AND IMPLANTS: Right IJ approach central venous catheter tip seen at the cavoatrial junction. Thoracolumbar spinal rods. CHEST WALL AND LOWER NECK: Right chest wall bilateral port . Postsurgical changes of left mastectomy and axillary lymph node dissection. BONES: Severe dextroconvex scoliosis. UPPER ABDOMEN: No acute findings MEDIASTINUM AND YANETH: Large hiatal hernia containing most of the stomach. AORTA: No aneurysm or dissection. PULMONARY ARTERIES: No large central pulmonary embolism. HEART: Mild cardiomegaly CORONARY ARTERIES: No coronary artery calcifications. LUNG AND AIRWAYS: Segmental/subsegmental atelectasis of the left lower lobe PLEURA: Unremarkable. CT/CT chest w con IMPRESSION: 1. No large central pulmonary embolism with limited evaluation of the lobar, interlobar, segmental and subsegmental pulmonary arteries due to suboptimal contrast bolus. 2. Otherwise evidence of acute intrathoracic abnormality. 3. Large hiatal hernia containing most of the stomach. Associated segmental subsegmental atelectasis of the left lower lobe. Electronically authenticated by: DAMIAN LLOYD Date: 07/25/2024 19:12
[2024-07-25] MEDS: 0.9 % SODIUM CHLORIDE 500 ML IV (17:55)
[2024-07-25] MEDS: HEPARIN SODIUM (PORCINE) PF LOCK FLUSH 500 UNIT/5 ML SYRINGE 250 UNIT IV (19:52)
== END 2024-07-25 20:00 | disposition home or self-care (01) ==
PROVIDERS: Physician Assistant; Emergency Provider Emergency Medicine; PCP Student in an Organized Health Care Education/Training Program
DX: J01.40 Acute pansinusitis, unspecified (principal); R06.02 Shortness of breath; Z86.711 Personal history of pulmonary embolism; Z85.3 Personal history of malignant neoplasm of breast; Z90.12 Acquired absence of left breast and nipple; Z92.21 Personal history of antineoplastic chemotherapy; Z92.3 Personal history of irradiation; Z96.652 Presence of left artificial knee joint; Z96.651 Presence of right artificial knee joint
CPT/HCPCS: 36415; 71045; 71260; 80053; 83735; 84484; 85025; 85378; 85610; 85730; 87811; 93005; 99285; J1642; Q9967

== ENCOUNTER 2024-10-19 09:59 | Observation (INO) | payer MEDICARE, OTHER, SELFPAY ==
[2024-10-19] VITALS (9 sets, daily range): BP systolic 113–130; BP diastolic 49–90; PULSE 61–83; TEMP 36.9–37.2; O2SAT 92–97; BMI 50.3; BMI 49.6
--- NOTE | 2024-10-19 10:43 | ED.GENADUL1 ---
HPI HPI - General Adult General Chief complaint: Upper Respiratory Infection Stated complaint: SOB, COUGH Time Seen by Provider: 10/19/24 10:34 Source: patient Mode of arrival: Wheelchair Limitations: no limitations History of Present Illness HPI narrative: The patient is a 68-year-old female with history of breast cancer and she has been in remission since last year, is coming to us with almost 4 to 5 days history of shortness of breath associated with diarrhea and decreased p.o. intake, the patient lives by herself she has not been able to get up and eat or drink She has been feeling weak and tired The patient also have a cough that is productive Related Data Home Medications ?Medication ?Instructions ?Recorded ?Confirmed cholecalciferol (vitamin D3) 125 125 mcg PO DAILY 01/25/23 10/19/24 mcg (5,000 unit) capsule metoprolol tartrate 50 mg tablet 50 mg PO BID 01/25/23 10/19/24 multivitamin 1 tab PO DAILY 01/25/23 10/19/24 potassium chloride 10 mEq 10 meq PO DAILY 01/25/23 10/19/24 capsule,extended release atorvastatin 40 mg tablet 40 mg PO .QHS 11/16/23 10/19/24 losartan 50 mg tablet (Cozaar) 50 mg PO DAILY 11/16/23 10/19/24 letrozole 2.5 mg tablet 2.5 mg PO QDAY 10/19/24 10/19/24 naproxen 500 mg tablet 500 mg PO Q12H PRN pain 10/19/24 10/19/24 ribociclib 400 mg/day (200 mg x 2) 400 mg PO Q24H 10/19/24 10/19/24 tablets (Kisqali) Previous Rx's ?Medication ?Instructions ?Recorded furosemide 20 mg tablet 40 mg (2 x 20 mg) PO DAILY #0 tabs 11/08/23 spironolactone 25 mg tablet 25 mg PO DAILY #30 tabs 11/08/23 (Aldactone) Allergies Allergy/AdvReac Type Severity Reaction Status Date / Time Sulfa (Sulfonamide Allergy Intermediate Hives Verified 10/19/24 10:18 Antibiotics) adhesive tape AdvReac Intermediate Rash Verified 10/19/24 10:18 fentanyl AdvReac Intermediate bradycardia Verified 10/19/24 10:18 Opioid HPI Opioid Management Most Recent Opioid Data: Last Pain Scale 8 01/08/24 11:24 01/08/24 Last ORT Total Score 0 11/16/23 10:35 11/16/23 Last ORT Risk Category Low Risk 11/16/23 10:35 11/16/23 Review of Systems ROS Status of ROS 10 or more systems reviewed and unremarkable except as noted in history and below [facility] Medical History Breast cancer, left breast ?C50.912 - Malignant neoplasm of unspecified site of left female breast (ICD-10) Pulmonary embolism and infarction ?I26.99 - Other pulmonary embolism without acute cor pulmonale (ICD-10) Pulmonary embolism on right ?I26.99 - Other pulmonary embolism without acute cor pulmonale (ICD-10) Lymph node cancer ?C77.9 - Secondary and unspecified malignant neoplasm of lymph node, unspecified (ICD-10) Numbness and tingling of both lower extremities ?R20.0 - Anesthesia of skin (ICD-10) ?R20.2 - Paresthesia of skin (ICD-10) 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 - Postmastectomy lymphedema syndrome (ICD-10) Rheumatoid arthritis ?M06.9 - Rheumatoid arthritis, unspecified (ICD-10) Spinal stenosis ?M48.00 - Spinal stenosis, site unspecified (ICD-10) Kidney stones ?N20.0 - Calculus of kidney (ICD-10) Heart murmur ?R01.1 - Cardiac murmur, unspecified (ICD-10) Scoliosis ?M41.9 - Scoliosis, unspecified (ICD-10) Hyperlipemia ?E78.5 - Hyperlipidemia, unspecified (ICD-10) Obesity ?E66.9 - Obesity, unspecified (ICD-10) Borderline diabetes ?R73.03 - Prediabetes (ICD-10) Breast cancer ?C50.919 - Malignant neoplasm of unspecified site of unspecified female breast (ICD-10) Edema ?R60.9 - Edema, unspecified (ICD-10) GERD (gastroesophageal reflux disease) ?K21.9 - Gastro-esophageal reflux disease without esophagitis (ICD-10) COPD (chronic obstructive pulmonary disease) ?J44.9 - Chronic obstructive pulmonary disease, unspecified (ICD-10) HTN (hypertension) ?I10 - Essential (primary) hypertension (ICD-10) Surgical History History of mastectomy ?Z90.10 - Acquired absence of unspecified breast and nipple (ICD-10) History of total left knee replacement ?Z96.652 - Presence of left artificial knee joint (ICD-10) History of total right knee replacement ?Z96.651 - Presence of right artificial knee joint (ICD-10) History of back surgery ?Z98.890 - Other specified postprocedural states (ICD-10) Family History Father Family history of CHF (congestive heart failure) Family history of cancer Family history of hypertension Sister Family history of stroke Mother Family history of cancer Family history of hypertension Social History Within the past year, how often did you have a drink containing alcohol: never Within the past year, how many standard drinks containing alcohol did you have on a typical day: 1 or 2 Within the past year, how often did you have six or more drinks on one occasion: never Total score: 0 Score interpretation: A score less than 3 is consistent with normal alcohol consumption. Smoking status: Never smoker Second hand tobacco smoke exposure: No Non-prescribed substance use: denies use Previous occupational history: none Known occupational exposures/hazards: No Highest level of school completed/degree received: some college, no degree Do you want help with school or training: No Are you now , , , , never or living with a partner: don't know In a typical week, how many times do you talk on the telephone with family, friends, or neighbors: 3 or more times per week How often do you get together with friends or relatives: once per week How often do you attend anabaptism or jain services: never Do you belong to any clubs or organizations such as anabaptism groups unions, fraternal or athletic groups, or school groups: no Total score: 1 Score interpretation: A score of less than or equal to 1 indicates the most socially isolated. Little interest or pleasure in doing things: not at all Feeling down, depressed, or hopeless: not at all Feel stressed/tense/nervous/anxious/difficulty sleeping: to some extent Life stressors: other Life stressor details: diagnosis with breast cancer Due to disability, difficulty making decisions: No Do you think of yourself as: decline to answer Gender Identity: decline to answer Exam Narrative Exam Narrative: Nurses notes and vital signs reviewed and patient is not hypoxic. General: Weak and tired Skin: Warm, dry, no pallor noted. No rash. Head: Normocephalic, atraumatic. Neck: Supple, non-tender. Eye: Pupils are equal, round and EOMI. No scleral icterus. Ears, Nose, Mouth, and Throat: TM are clear, no nasal mucosal hypertrophy. Oral mucosa is moist, no posterior oropharynx erythema, uvula is mid-line Cardiovascular: Regular Rate and Rhythm without murmur, gallop or rub. Respiratory: Decreased air entry in the bases Back: No midline thoracic or lumbar vertebral tenderness. No CVA tenderness Musculoskeletal: normal ROM, no calf or popliteal tenderness, no lower extremity edema/swelling GI: Abdomen is soft, non-distended. Normal bowel sounds. No masses appreciated. No tenderness to palpation. No rebound, guarding, or rigidity noted. Neurological: A&O x4. No cranial nerve dysfunction observed. Constitutional Vital Signs, click to edit/add: Last Vital Signs Temp 98.9 F 10/19/24 10:10 Pulse 10/19/24 10:10 Resp 10/19/24 10:10 BP 115/65 10/19/24 10:10 Pulse Ox 94 L 10/19/24 10:10 O2 Del Method Room Air 10/19/24 10:10 Course Vital Signs Vital signs: Vital Signs Temperature 98.9 F 10/19/24 10:10 Pulse Rate 10/19/24 10:10 Respiratory Rate 10/19/24 10:10 Blood Pressure 115/65 10/19/24 10:10 Pulse Oximetry 94 L 10/19/24 10:10 Oxygen Delivery Method Room Air 10/19/24 10:10 Temperature 98.9 F 10/19/24 10:10 Pulse Rate 10/19/24 10:10 Respiratory Rate 10/19/24 10:10 Blood Pressure 115/65 10/19/24 10:10 Pulse Oximetry 94 L 10/19/24 10:10 Oxygen Delivery Method Room Air 10/19/24 10:10 Medical Decision Making MDM Narrative Medical decision making narrative: Patient EKG in the ER showing sinus rhythm with a heart rate of [address] elevation or depression CBC shows leukopenia which mostly secondary to viral infection Chemistry showing acute kidney injury with a creatinine of 2.3 Chest x-ray showed no infiltrate but the patient have some inflammatory reaction bilaterally which mostly secondary to influenza Patient was started on IV fluid 500 cc right now and she will be admitted for observation specially with the fact that she could by itself to be at risk of more deterioration Patient case was discussed with and she agreed to admit the patient for further evaluation Lab Data Labs: Lab Results 10/19/24 10/19/24 Range/Units 10:25 11:15 WBC 2.4 L (4.0-11.0) 10^3/uL RBC 3.67 L (4.20-5.40) 10^6/uL Hgb 12.0 (12.0-16.0) g/dL Hct 35.5 L (36.0-48.0) % MCV 96.7 (81.0-99.0) fL MCH 32.7 (26.7-34.0) pg MCHC 33.8 (29.9-35.2) g/dL RDW 15.9 H (11.0-15.0) % Plt Count 211 (150-450) 10^3/uL MPV 9.2 L (9.5-13.5) fL Neut % (Auto) 65.7 (43.0-75.0) % Lymph % (Auto) 24.4 (20.5-60.0) % [place] % (Auto) 6.2 (1.7-12.0) % Eos % (Auto) 2.9 (0.9-7.0) % Baso % (Auto) 0.8 (0.2-2.0) % Neut # (Auto) 1.6 (1.4-6.5) 10^3/uL Lymph # (Auto) 0.6 L (1.2-3.8) 10^3/uL [place] # (Auto) 0.2 L (0.3-0.8) 10^3/uL Eos # (Auto) 0.1 (0.0-0.7) 10^3/uL Baso # (Auto) 0.0 (0.0-0.1) 10^3/uL Abs Immat Gran (auto) 0.00 (0.00-0.03) 10^3/uL Imm/Tot Granulo (auto) 0.0 (0.0-0.5) % Sodium 135 L (136-145) mmol/L Potassium 4.4 (3.5-5.1) mmol/L Chloride 99 (98-107) mmol/L Carbon Dioxide 26.1 (21.0-32.0) mmol/L Anion Gap 14.3 BUN 22.0 H (7.0-18.0) mg/dL Creatinine 2.37 H (0.55-1.02) mg/dL Est GFR ( Amer) 25 L (>=60 mL/min/1.73m^2) Est GFR (Non-Af Amer) 20 L (>=60 mL/min/1.73m^2) BUN/Creatinine Ratio 9.3 Glucose 110 H (74-106) mg/dL Calcium 8.7 (8.5-10.1) mg/dL Total Bilirubin 0.5 (0.2-1.0) mg/dL AST 24 (15-37) U/L ALT 25 (14-59) U/L Alkaline Phosphatase 86 (46-116) U/L Troponin I High Sens 9.7 (4.0-51.3) pg/mL NT-Pro-B Natriuret Pep 67.0 (<=900.0) pg/mL Total Protein 6.9 (6.4-8.2) g/dL Albumin 3.3 L (3.4-5.0) g/dL Globulin 3.6 g/dL Albumin/Globulin Ratio 0.9 Influenza Type A Ag Positive A Influenza Type B Ag Negative SARS-CoV-2 Ag (CV2AG) Negative (NEGATIVE) Discharge Plan Discharge Chief Complaint: Upper Respiratory Infection Clinical Impression: BEVERLY (acute kidney injury), Flu, Shortness of breath Prescriptions / Home Meds: No Action spironolactone [Aldactone] 25 mg tablet 25 mg PO DAILY Qty: 30 0RF furosemide 20 mg tablet 40 mg PO DAILY Qty: 0 0RF letrozole 2.5 mg tablet 2.5 mg PO QDAY Kisqali 400 mg/day (200 mg x 2) tablet 400 mg PO Q24H Rx Instructions: Pt takes for 3 weeks then is 1week off naproxen 500 mg tablet 500 mg PO Q12H PRN (Reason: pain) metoprolol tartrate 50 mg tablet 50 mg PO BID multivitamin Tablet 1 tab PO DAILY cholecalciferol (vitamin D3) 125 mcg (5,000 unit) capsule 125 mcg PO DAILY potassium chloride 10 mEq capsule, extended release 10 meq PO DAILY losartan [Cozaar] 50 mg tablet 50 mg PO DAILY atorvastatin 40 mg tablet 40 mg PO .[facility] Print Language: Czech Referrals: Sunny Jenkins ND [Primary Care Provider] - 1 week
[2024-10-19 11:08] LABS: Influenza Virus A Antigen Positive; Influenza Virus B Antigen Negative; Internal Control Within Normal Limits; SARS-CoV-2 Ag NEGATIVE (NEGATIVE)
[2024-10-19 11:28] LABS: Basophils Percent Auto 0.8 % (0.2-2.0); Eosinophils Absolute Auto 0.1 10^3/uL (0.0-0.7); Eosinophils Percent Auto 2.9 % (0.9-7.0); Hematocrit 35.5 % (36.0-48.0); Lymphocytes Absolute Auto 0.6 10^3/uL (1.2-3.8); Lymphocytes Percent Auto 24.4 % (20.5-60.0); Mean Corpuscular HGB Conc 33.8 g/dL (29.9-35.2); Mean Corpuscular Hemoglobin 32.7 pg (26.7-34.0); Mean Corpuscular Volume 96.7 fL (81.0-99.0); Mean Platelet Volume 9.2 fL (9.5-13.5); Monocytes Absolute Auto 0.2 10^3/uL (0.3-0.8); Monocytes Percent Auto 6.2 % (1.7-12.0); Neutrophils Absolute Auto 1.6 10^3/uL (1.4-6.5); Neutrophils Percent Auto 65.7 % (43.0-75.0); Platelet Count 211 10^3/uL (150-450); Red Blood Count 3.67 10^6/uL (4.20-5.40); Red Cell Distribution Width 15.9 % (11.0-15.0); White Blood Count 2.4 10^3/uL (4.0-11.0)
[2024-10-19 11:52] LABS: Alanine Aminotransferase 25 U/L (14-59); Albumin Globulin Ratio 0.9; Albumin Level 3.3 g/dL (3.4-5.0); Alkaline Phosphatase 86 U/L (46-116); Anion Gap 14.3; Aspartate Amino Transferase 24 U/L (15-37); BUN Creatinine Ratio 9.3; Bilirubin Total 0.5 mg/dL (0.2-1.0); Calcium 8.7 mg/dL (8.5-10.1); Carbon Dioxide 26.1 mmol/L (21.0-32.0); Chloride 99 mmol/L (98-107); Estimated GFR (African America 25 (>=60 mL/min/1.73m^2); Estimated GFR (Non-African Ame 20 (>=60 mL/min/1.73m^2); Globulin 3.6 g/dL; Glucose 110 mg/dL (74-106); Potassium 4.4 mmol/L (3.5-5.1); Sodium 135 mmol/L (136-145); Total Protein 6.9 g/dL (6.4-8.2)
--- NOTE | 2024-10-19 12:02 | ECG_ITS ---
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
[2024-10-19 12:27] LABS: Troponin I High Sensitivity 9.7 pg/mL (4.0-51.3)
[2024-10-19] MEDS: 0.9 % SODIUM CHLORIDE 1,000 ML 500 ML IV (12:57)
--- NOTE | 2024-10-19 14:46 | P.HP_ITS ---
HPI H&P: HPI History of Present Illness Chief complaint: SOB, COUGH ACUTE KIDNEY INJURY FLU A Narrative: patient is a 68-year-old female with past medical history of left breast cancer status post mastectomy and lymph node dissection and chemotherapy, had a PE about a year ago, [facility]. Also history of CHF, and HTN. She continues to see Dr. Kramer for her hem/onc doctor. She currently takes Letrozole and Kisqali daily. She started with a fever 103 on saturday. Then diarrhea and increased shortness of breath, cough. She came to the ER today for her symptoms. ER findings: positive for influenza A, Cr 2.37, WBC's 2.4. BP 115/65, HR 68, 94% on room air. She was given IV fluid bolus and admitted for acute Kidney injury, dehydration and acute Influenza A. Opioid HPI Opioid Management Most Recent Pain and Opioid Data: Last Pain Scale 0 10/19/24 14:23 10/19/24 Last Pain Assessment 10/19/24 14:23 Last ORT Total Score 0 10/19/24 13:33 10/19/24 Last ORT Risk Category Low Risk 10/19/24 13:33 10/19/24 Review of Systems ROS Narrative ROS: a complete review of systems were reviewed with patient and are positive as below or listed in History of Chief Complaint. General: no fever, chills, night sweats Head: no headache, trauma, visual changes, nausea or vomiting Skin: no reported rashes, itching or sores Eyes: no blurriness of vision Ears: no reported hearing loss, vertigo, earache, or tinnitus Throat: no sore throat, hoarseness, swelling of neck, or tongue pain Heart: no chest pain Lungs:shortness of breath and cough GI: diarrhea and vomiting/nausea Urinary: no urinary urgency, frequency or pain Neuro: no numbness or tingling HEM: no bleeding issues or bruising ENDO: no thyroid problems Psych: no anxiety or depression PFSH PFS Medical History Breast cancer, left breast ?C50.912 - Malignant neoplasm of unspecified site of left female breast (ICD- 10) Pulmonary embolism and infarction ?I26.99 - Other pulmonary embolism without acute cor pulmonale (ICD-10) Pulmonary embolism on right ?I26.99 - Other pulmonary embolism without acute cor pulmonale (ICD-10) Lymph node cancer ?C77.9 - Secondary and unspecified malignant neoplasm of lymph node, unspecified (ICD-10) Numbness and tingling of both lower extremities ?R20.0 - Anesthesia of skin (ICD-10) ?R20.2 - Paresthesia of skin (ICD-10) 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 - Postmastectomy lymphedema syndrome (ICD-10) Rheumatoid arthritis ?M06.9 - Rheumatoid arthritis, unspecified (ICD-10) Spinal stenosis ?M48.00 - Spinal stenosis, site unspecified (ICD-10) Kidney stones ?N20.0 - Calculus of kidney (ICD-10) Heart murmur ?R01.1 - Cardiac murmur, unspecified (ICD-10) Scoliosis ?M41.9 - Scoliosis, unspecified (ICD-10) Hyperlipemia ?E78.5 - Hyperlipidemia, unspecified (ICD-10) Obesity ?E66.9 - Obesity, unspecified (ICD-10) Borderline diabetes ?R73.03 - Prediabetes (ICD-10) Breast cancer ?C50.919 - Malignant neoplasm of unspecified site of unspecified female breast (ICD-10) Edema ?R60.9 - Edema, unspecified (ICD-10) GERD (gastroesophageal reflux disease) ?K21.9 - Gastro-esophageal reflux disease without esophagitis (ICD-10) COPD (chronic obstructive pulmonary disease) ?J44.9 - Chronic obstructive pulmonary disease, unspecified (ICD-10) HTN (hypertension) ?I10 - Essential (primary) hypertension (ICD-10) Surgical History History of mastectomy ?Z90.10 - Acquired absence of unspecified breast and nipple (ICD-10) History of total left knee replacement ?Z96.652 - Presence of left artificial knee joint (ICD-10) History of total right knee replacement ?Z96.651 - Presence of right artificial knee joint (ICD-10) History of back surgery ?Z98.890 - Other specified postprocedural states (ICD-10) Family History Father Family history of CHF (congestive heart failure) Family history of cancer Family history of hypertension Sister Family history of stroke Mother Family history of cancer Family history of hypertension Social History Within the past year, how often did you have a drink containing alcohol: never Within the past year, how many standard drinks containing alcohol did you have on a typical day: 1 or 2 Within the past year, how often did you have six or more drinks on one occasion: never Total score: 0 Score interpretation: A score less than 3 is consistent with normal alcohol consumption. Smoking status: Never smoker Second hand tobacco smoke exposure: No Non-prescribed substance use: denies use Previous occupational history: none Known occupational exposures/hazards: No Highest level of school completed/degree received: high school graduate Do you want help with school or training: No Are you now , , , , never or living with a partner: don't know In a typical week, how many times do you talk on the telephone with family, friends, or neighbors: 3 or more times per week How often do you get together with friends or relatives: once per week How often do you attend scientology or congregational services: never Do you belong to any clubs or organizations such as scientology groups unions, fraternal or athletic groups, or school groups: no Total score: 1 Score interpretation: A score of less than or equal to 1 indicates the most socially isolated. Little interest or pleasure in doing things: not at all Feeling down, depressed, or hopeless: not at all Feel stressed/tense/nervous/anxious/difficulty sleeping: to some extent Life stressors: other Life stressor details: diagnosis with breast cancer Due to disability, difficulty making decisions: No Do you think of yourself as: straight/heterosexual Gender Identity: female Meds Home Medications and Allergies Home Medications ?Medication ?Instructions ?Recorded ?Confirmed ?Type cholecalciferol (vitamin D3) 125 125 mcg PO DAILY 01/25/23 10/19/24 History mcg (5,000 unit) capsule metoprolol tartrate 50 mg tablet 50 mg PO BID 01/25/23 10/19/24 History multivitamin 1 tab PO DAILY 01/25/23 10/19/24 History potassium chloride 10 mEq 10 meq PO DAILY 01/25/23 10/19/24 History capsule,extended release furosemide 20 mg tablet 40 mg (2 x 20 mg) PO DAILY #0 tabs 11/08/23 10/19/24 Rx spironolactone 25 mg tablet 25 mg PO DAILY #30 tabs 11/08/23 10/19/24 Rx (Aldactone) atorvastatin 40 mg tablet 40 mg PO .QHS 11/16/23 10/19/24 History losartan 50 mg tablet (Cozaar) 50 mg PO DAILY 11/16/23 10/19/24 History letrozole 2.5 mg tablet 2.5 mg PO QDAY 10/19/24 10/19/24 History naproxen 500 mg tablet 500 mg PO Q12H PRN pain 10/19/24 10/19/24 History ribociclib 400 mg/day (200 mg x 2) 400 mg PO Q24H 10/19/24 10/19/24 History tablets (Kisqali) Allergies Allergy/AdvReac Type Severity Reaction Status Date / Time Sulfa (Sulfonamide Allergy Intermediate Hives Verified 10/19/24 10:18 Antibiotics) adhesive tape AdvReac Intermediate Rash Verified 10/19/24 10:18 fentanyl AdvReac Intermediate bradycardia Verified 10/19/24 10:18 Exam Narrative Exam Narrative: General: Patient is alert, and oriented to person, place and time with normal affect, proper hygiene Skin: no visible rashes, or ulcers Head: atraumatic, acephalic Eyes: PERRLA, no nystagmus present, conjunctiva clear, no scleral icterus Ears: normal gross auditory acuity Heart: Normal rate and rhythm, no murmurs/rubs/gallops Lungs: no audible wheezes, crackles and normal breath sounds all lung harrell Abdomen: Normal audible bowel sounds, no distension, No palpable masses, no organomegaly, no rebound/guarding/ or rigidity Musculoskeletal: no swelling bilateral lower extremities Neuro: CN II-X grossly intact, normal sensation upper and lower extremities Constitutional Vital Signs, click to edit/add: Last Vital Signs Temp 98.5 F 10/19/24 13:41 Pulse 63 10/19/24 13:41 Resp 22 H 10/19/24 13:41 BP 113/49 10/19/24 13:41 Pulse Ox 97 10/19/24 13:41 O2 Del Method Room Air 10/19/24 13:41 Results Labs Labs: Short CBC 10/19/24 Range/Units 11:15 WBC 2.4 L (4.0-11.0) 10^3/uL Hgb 12.0 (12.0-16.0) g/dL Hct 35.5 L (36.0-48.0) % Plt Count 211 (150-450) 10^3/uL BMP 10/19/24 11:15 Sodium 135 L Potassium 4.4 Chloride 99 Carbon Dioxide 26.1 BUN 22.0 H Creatinine 2.37 H Glucose 110 H Calcium 8.7 Liver Function 10/19/24 Range/Units 11:15 Total Bilirubin 0.5 (0.2-1.0) mg/dL AST 24 (15-37) U/L ALT 25 (14-59) U/L Alkaline Phosphatase 86 (46-116) U/L Albumin 3.3 L (3.4-5.0) g/dL Assessment and Plan Assessment and Plan (1) Influenza A: Assessment and Plan: CrCl 44, start tamiflu 30mg BID. Monitor respiratory and the need for oxygen. PRN Duonebs. Chest Xray negative for secondary pneumonia. 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 Will treat with IVF, recheck in the morning. (3) Breast cancer, left breast: Assessment and Plan: continue letrozole and kisqali Qualifiers: Breast location: unspecified site of breast Estrogen receptor status: unspecified Patient sex: female Qualified Code(s): C50.912 - Malignant neoplasm of unspecified site of left female breast (4) Obesity: Assessment and Plan: would benefit from weight reduction Qualifiers: Obesity type: due to excess calories Obesity classification: unspecified obesity classification Serious obesity comorbidity presence: without serious comorbidity Qualified Code(s): E66.09 - Other obesity due to excess calories (5) HTN (hypertension): Assessment and Plan: continue losartan, metoprolol, lasix and spironolactone. Qualifiers: Hypertension type: primary hypertension Qualified Code(s): I10 - Essential (primary) hypertension Plan Patient is a full code continue heparin for DVT prophylaxis Patient admitted for observation, Given immunocompromised status, has high change of decompensation with influenza A. Is not expected to cross 2 midnights for her hospital necessary treatment.
[2024-10-19] MEDS: LACTATED RINGER'S SOLUTION 1,000 ML 50 ML IV (15:11)
[2024-10-19] MEDS: OSELTAMIVIR PHOSPHATE 30 MG CAPSULE PO ×2 (15:11→21:40)
[2024-10-19] MEDS: HEPARIN SODIUM (PORCINE) 5,000 UNIT/ML VIAL 5000 UNIT SUBQ (15:11)
[2024-10-19] MEDS: ATORVASTATIN CALCIUM 40 MG TABLET PO (21:40)
[2024-10-19] MEDS: METOPROLOL TARTRATE 50 MG TABLET PO (21:40)
[2024-10-20] VITALS (8 sets, daily range): BP systolic 110–125; BP diastolic 53–76; PULSE 67–89; TEMP 37.1–38.3; O2SAT 91
[2024-10-20] MEDS: phenoL 88 SPRAY/177 ML BOTTLE MM (02:39)
[2024-10-20] MEDS: HEPARIN SODIUM (PORCINE) 5,000 UNIT/ML VIAL 5000 UNIT SUBQ (02:40)
[2024-10-20 05:54] LABS: Eosinophils Absolute Auto 0.1 10^3/uL (0.0-0.7); Hematocrit 31.5 % (36.0-48.0); Hemoglobin 10.4 g/dL (12.0-16.0); Immature Granulocytes Abs Auto 0.02 10^3/uL (0.00-0.03); Lymphocytes Absolute Auto 0.6 10^3/uL (1.2-3.8); Lymphocytes Percent Auto 29.4 % (20.5-60.0); Mean Corpuscular Hemoglobin 32.1 pg (26.7-34.0); Mean Corpuscular Volume 97.2 fL (81.0-99.0); Mean Platelet Volume 9.1 fL (9.5-13.5); Monocytes Absolute Auto 0.1 10^3/uL (0.3-0.8); Neutrophils Absolute Auto 1.2 10^3/uL (1.4-6.5); Neutrophils Percent Auto 57.6 % (43.0-75.0); Platelet Count 179 10^3/uL (150-450); Red Blood Count 3.24 10^6/uL (4.20-5.40)
[2024-10-20] MEDS: ACETAMINOPHEN 500 MG TABLET 1000 MG PO (06:06)
[2024-10-20 06:35] LABS: Alanine Aminotransferase 30 U/L (14-59); Albumin Globulin Ratio 0.8; Albumin Level 2.7 g/dL (3.4-5.0); Alkaline Phosphatase 74 U/L (46-116); Anion Gap 11.4; Aspartate Amino Transferase 21 U/L (15-37); BUN Creatinine Ratio 10.3; Bilirubin Total 0.5 mg/dL (0.2-1.0); Calcium 7.7 mg/dL (8.5-10.1); Carbon Dioxide 25.8 mmol/L (21.0-32.0); Chloride 102 mmol/L (98-107); Estimated GFR (African America 33 (>=60 mL/min/1.73m^2); Estimated GFR (Non-African Ame 27 (>=60 mL/min/1.73m^2); Globulin 3.2 g/dL; Glucose 123 mg/dL (74-106); Potassium 4.2 mmol/L (3.5-5.1); Sodium 135 mmol/L (136-145); Total Protein 5.9 g/dL (6.4-8.2)
--- NOTE | 2024-10-20 07:40 | P.DS_ITS ---
DS: Providers Provider Date of admission: 10/19/24 13:24 Primary care physician: Sunny Jenkins ND Attending physician on admission: Suzanne Diez Discharging clinician: Suzanne Diez DS: Diagnosis Discharge Diagnosis (1) Influenza A: (2) BEVERLY (acute kidney injury): (3) Breast cancer, left breast: Qualifiers: Breast location: unspecified site of breast Estrogen receptor status: unspecified Patient sex: female Qualified Code(s): C50.912 - Malignant neoplasm of unspecified site of left female breast (4) Obesity: Qualifiers: Obesity classification: unspecified obesity classification Obesity type: due to excess calories Serious obesity comorbidity presence: without serious comorbidity Qualified Code(s): E66.09 - Other obesity due to excess calories (5) HTN (hypertension): Qualifiers: Hypertension type: primary hypertension Qualified Code(s): I10 - Essential (primary) hypertension DS: Summary Hospital Course Hospital Course: Patient is a 68-year-old female with past medical history of left breast cancer status post mastectomy and lymph node dissection and chemotherapy, had a PE about a year ago, since off eliquis. Also history of CHF, and HTN. She continues to see Dr. Kramer for her hem/onc doctor. She currently takes Letrozole and Kisqali daily. She started with a fever 103 on saturday. Then diarrhea and increased shortness of breath, cough. She came to the ER yesterday for her symptoms. ER findings: positive for influenza A, Cr 2.37, WBC's 2.4. BP 115/65, HR 68, 94% on room air. She was given IV fluid bolus and admitted for acute Kidney injury, dehydration and acute Influenza A. She was started on Tamiflu 30mg BID due to renal impairment and continued on IVF. Cr this morning is much improved to 1.84. She did have a fever of 101 last night. She is 91% on room air, she is in no acute distress this morning. She denies any n/v/d overnight. She wishes to go home. I discussed that she may continue to have fevers as is part of the influenza course. She should complete the full 5 day course of Tamiflu. I discussed that she call her hem/on doctor and let them know she was diagnosed with the flu. She may return to the ER with any worsening signs or symptoms. Patient will be discharged home today with Tamiflu and instructions for symptomatic treatment. Status at Discharge Functional status at discharge: independent ambulation Overall status at discharge: patient is progressing back to baseline Time Spent with Patient Time attestation: Total time spent providing and/or coordinating discharge services: Time spent: greater than 30 minutes Exam Narrative Exam Narrative: General: Patient is alert, and oriented to person, place and time with normal affect, proper hygiene Skin: no visible rashes, or ulcers Head: atraumatic, acephalic Eyes: PERRLA, no nystagmus present, conjunctiva clear, no scleral icterus Ears:normal gross auditory acuity Heart: Normal rate and rhythm, no murmurs/rubs/gallops Lungs: no audible wheezes, crackles on the left Abdomen: Normal audible bowel sounds, no distension, No palpable masses, no organomegaly, no rebound/guarding/ or rigidity Musculoskeletal: mild swelling bilateral lower extremities around the ankles Neuro: CN II-X grossly intact Constitutional Vital Signs, click to edit/add: Last Vital Signs Temp 101.0 F H 10/20/24 06:06 Pulse 70 10/20/24 06:00 Resp 20 10/20/24 04:00 BP 125/74 10/20/24 04:00 Pulse Ox 91 L 10/20/24 06:00 O2 Del Method Room Air 10/20/24 04:00 DS: Data Data Completed and Pending Labs on day of discharge: Labs from last 24 hours 10/20/24 10/19/24 10/19/24 05:30 11:15 10:25 WBC 2.0 L 2.4 L RBC 3.24 L 3.67 L Hgb 10.4 L 12.0 Hct 31.5 L 35.5 L MCV 97.2 96.7 MCH 32.1 32.7 MCHC 33.0 33.8 RDW 16.0 H 15.9 H Plt Count 179 211 MPV 9.1 L 9.2 L Neut % (Auto) 57.6 65.7 Lymph % (Auto) 29.4 24.4 [place] % (Auto) 7.0 6.2 Eos % (Auto) 4.0 2.9 Baso % (Auto) 1.0 0.8 Neut # (Auto) 1.2 L 1.6 Lymph # (Auto) 0.6 L 0.6 L [place] # (Auto) 0.1 L 0.2 L Eos # (Auto) 0.1 0.1 Baso # (Auto) 0.0 0.0 Abs Immat Gran (auto) 0.02 0.00 Imm/Tot Granulo (auto) 1.0 H 0.0 Sodium 135 L 135 L Potassium 4.2 4.4 Chloride 102 99 Carbon Dioxide 25.8 26.1 Anion Gap 11.4 14.3 BUN 19.0 H 22.0 H Creatinine 1.84 H 2.37 H Est GFR ( Amer) 33 L 25 L Est GFR (Non-Af Amer) 27 L 20 L BUN/Creatinine Ratio 10.3 9.3 Glucose 123 H 110 H Calcium 7.7 L 8.7 Total Bilirubin 0.5 0.5 AST 21 24 ALT 30 25 Alkaline Phosphatase 74 86 Troponin I High Sens 9.7 NT-Pro-B Natriuret Pep 67.0 Total Protein 5.9 L 6.9 Albumin 2.7 L 3.3 L Globulin 3.2 3.6 Albumin/Globulin Ratio 0.8 0.9 Influenza Type A Ag Positive A Influenza Type B Ag Negative SARS-CoV-2 Ag (CV2AG) Negative Discharge Plan Discharge Disposition: Home, Self-Care Discharge Medications: New oseltamivir 30 mg Capsule 30 mg PO BID 5 Days Qty: 10 0RF Continued spironolactone [Aldactone] 25 mg tablet 25 mg PO DAILY Qty: 30 0RF furosemide 20 mg tablet 40 mg PO DAILY Qty: 0 0RF letrozole 2.5 mg tablet 2.5 mg PO QDAY Kisqali 400 mg/day (200 mg x 2) tablet 400 mg PO Q24H Rx Instructions: Pt takes for 3 weeks then is 1week off naproxen 500 mg tablet 500 mg PO Q12H PRN (Reason: pain) metoprolol tartrate 50 mg tablet 50 mg PO BID multivitamin Tablet 1 tab PO DAILY cholecalciferol (vitamin D3) 125 mcg (5,000 unit) capsule 125 mcg PO DAILY potassium chloride 10 mEq capsule, extended release 10 meq PO DAILY losartan [Cozaar] 50 mg tablet 50 mg PO DAILY atorvastatin 40 mg tablet 40 mg PO .QHS Activity: increase activity as tolerated and resume usual activities as tolerated Diet: advance to your usual diet Print Language: Vietnamese Patient Instructions: Oseltamivir (By mouth), Influenza (DC) Activity Restrictions/Additional Instructions: May take tylenol for fever; Please complete Tamiflu duration. Forms: Portal Instructions Follow Up Appointments: Follow up with Oncology as scheduled and PCP within 5-7 days
--- NOTE | 2024-10-21 14:37 | CM.DCFOLLOWU ---
Person spoke with:patient How are you feeling?alright, no fever, some diarrhea now How is your pain? none Did you understand your discharge instructions?yes Do you have any questions about your discharge instructions? no Were you given any prescriptions at discharge? yes Were you able to get your prescriptions filled?yes Do you understand how to take your medications as ordered? yes Do you have any questions about your follow up appointment and do you plan to keep your follow up appointment? no questions, reviewed follow ups Is there anything else that you would like to discuss? no Questions/Comments/Concerns/Other: N/A
== END 2024-10-20 08:32 | disposition home or self-care (01) ==
LOC: ER 11:08 → MS 13:28
PROVIDERS: Admitting Provider Family Medicine; Emergency Provider Emergency Medicine; PCP Student in an Organized Health Care Education/Training Program; Visit Provider Family Medicine
DX: E86.0 Dehydration (principal); N17.9 Acute kidney failure, unspecified; J10.1 Influenza due to other identified influenza virus with other respiratory manifestations; Z85.3 Personal history of malignant neoplasm of breast; Z96.653 Presence of artificial knee joint, bilateral; Z90.10 Acquired absence of unspecified breast and nipple; R06.02 Shortness of breath; Z86.711 Personal history of pulmonary embolism; Z92.21 Personal history of antineoplastic chemotherapy; I11.0 Hypertensive heart disease with heart failure; I50.9 Heart failure, unspecified; Z79.899 Other long term (current) drug therapy; E66.09 Other obesity due to excess calories; R50.9 Fever, unspecified; Z68.42 Body mass index [BMI] 45.0-49.9, adult
CPT/HCPCS: 36415; 36591; 71045; 80053; 83880; 84484; 85025; 87804; 87811; 93005; 94667; 96360; 96361; 96372; 99285; G0378; J1644

== ENCOUNTER 2025-04-19 08:26 | Emergency (ER) | payer MEDICARE, OTHER, SELFPAY ==
--- OUTSIDE RECORDS SUMMARY | 2025-04-05 10:00 | XMS_ITS | Encounter Summary ---
Author Organization [facility] Address [address] [place] [id number] Care Team Providers Care Gasoline Finisher Name Role Phone Janet Dillard DO Unavailable Unavailabl Sunny Stone MD Primary Care Provider Mitch Garcia MD Unavailable [phone] Deepika Garcia Unavailable Unavailable Nona Lomax RD Unavailable [phone] Nia Snider RN Unavailable Unavailable Source Comments In the event this information is protected by the Federal Confidentiality of Alcohol and Drug AbusePatient Records regulations: The Federal rules restrict any use of the information to criminally investigate or prosecute any alcohol or drug abuse patient.[facility] Encounter Details Date Type Department Care Team (Latest Contact Info) Description 04/05/2025 10:[address] [facility] Hematology/Oncology [address] [place] [address] [place] [address] Invasive lobular carcinoma of breast in female (HCC) (Primary Dx) Social History Tobacco Use Types Packs/Day Years Used Date Smoking Tobacco: Never Smokeless Tobacco: Never Alcohol Use Standard Drinks/Week Comments Yes 0 (1 standard drink = 0.6 oz pure alcohol) socially- couple times per year Overall Financial Resource Strain (CARDIA) Answe r Date Recorded How hard is it for you to pa y for the very basics like food, housing, medical care, and heating? Not hard at all 07/30/2023 PHQ-2 Answer Date Recorded PHQ-2 score 0 02/11/2025 Hunger Vital Sign Answer Date Recorded Within the past 12 months, y ou worried that your food would run out before you got the money to buy more. Never true 07/30/20 23 Within the past 12 months, t he food you bought just didn't last and you didn't have money to get more. Never true 07/30/2023 PRAPARE - Transportation Answer Date Re corded In the past 12 months, has l ack of transportation kept you from medical appointments or from getting medications? No 12/2022 In the past 12 months, has l ack of transportation kept you from meetings, work, or from getting things needed for daily living? No 07/30/2023 Housing Stability Vital Sign Answer Rafa e Recorded In the last 12 months, was t here a time when you were not able to pay the mortgage or rent on time? No 07/30/2023 Number of Places Lived in the Last Year Not on f ile 07/30/2023 In the last 12 months, was t here a time when you did not have a steady place to sleep or slept in a mcc (including now)? No 07/30/2023 Area Deprivation Index Answer Date Joaquin rded National Score (1-100), lower number is lower ri sk 92 01/29/2023 State Score (1-10), lower number is lower risk 9 01/29/2023 Data from: https://www.neighborhoodatlas.medicine.[facility].edu/. Last address used for calculation Armando Mayen 01/29/2023 Comments No Sex and Gender Information Value Date Recorded Sex Assigned at Female 08/14/2024 10:40 AM EST Legal Sex Female 8:08 AM EST Gender Identity Not on file Sexual Orientation Straight 08/14/2024 10 :40 AM EST documented as of this encounter Functional Status * Are you deaf or do you have serious difficulty hearing? Answer Date of Assessment Author No 09/05/2023 8:47 AM Belle Sandoval RN * Are you blind or do you have serious difficulty seeing, even when wearing glasses? Answer Date of Assessment Author No 09/05/2023 8:47 AM Belle Sandoval RN * Do you have serious difficulty walking or climbing stairs? Answer Date of Assessment Author No 09/05/2023 8:47 AM Belle Sandoval RN * Do you have difficulty dressing or bathing? Answer Date of Assessment Author No 09/05/2023 8:47 AM Belle Sandoval RN * Because of a physical, mental, or emotional condition, do you have difficulty doing errands alone such as visiting a doctor's office or shopping? Answer Date of Assessment Author No 09/05/2023 8:47 AM Belle Sandoval RN documented as of this encounter Mental Status * Because of a physical, mental, or emotional condition, do you have serious difficulty concentrating, remembering, or making decisions? Answer Entry Date Author No 09/05/2023 8:47 AM Belle Sandoval RN documented in this encounter Progress Notes * Halina Hunter RN - 04/05/2025 10:06 AM EDT Pt came in for Activase, however port gave great blood return immediately and flushed with ease. Noneed for activase at this time. Halina Hunter RN documented in this encounter Plan of Treatment Upcoming Encounters Date Type Department Care Team (Late st Contact Info) Description 05/10/2025 7:15 AM EDT Specialty [id number] [place] [address] Pharmacist, [facility] [address] [place] [address] [place] [address] Refill - Kisqali [28DS] C005/1705/17/2025 8:00 AM EDT Procedure Pulmonary Lab [address] [place] [address] Dyspnea and respiratory abnormalities [R06.00, R06.89] 05/17/2025 8:15 AM EDT Procedure Pulmonary Lab [address] [facility] [place] [address] Dyspnea and respiratory abnormalities [R06.00, R06.89] 05/17/2025 8:30 AM EDT Office Visit Pulmonary Medicine [address] [facility] [place] [address] Dayanna Alatorre APRN.EQUIPMENT TECHNICIAN [address] [facility] [place] [address] Return in about 1 month (around 05/17/2025). 06/10/2025 1:30 PM EDT Appointment Procedures [address] [place] [address] Debbie Gunn MD [address] [place], [place] [id number] 07/07/2025 9:00 AM [facility] Infusion Center Hematology/Oncolo gy [address] [place] [address] lab 07/14/2025 9:30 AM [facility] Hematology [address] [place] [address] Mitch Garcia MD [address] [place] [address] Schedule labs prior to Virtual visit with DR Garcia 07/15/2025 9:00 AM [facility] Hematology/Oncolo gy [address] [place] [address] Prolia injection day after RADHA virtual visit per staff message 08/23/2025 10:00 AM EST Office Visit Kidney Medicine [address] [place] [address] Shante Carroll APRN.EQUIPMENT TECHNICIAN [address] [facility] [place] [address] 6 month follow up 11/01/2025 2:00 PM EDT Office Visit Rheumatology [address] [facility] [place] [id number] Nany Bustillos MD [address] [place] [address] RA documented as of this encounter Visit Diagnoses Diagnosis Invasive lobular carcinoma of breast in female (HCC)- Primary documented in this encounter Care Teams Gasoline Finisher Relationship Specialty Start Date End Date Sunny Jenkins MD PCP - General Internal Medicine 08/22/23 Janet Dillard DO Referring Family Medicine 07/14/21 Mitch Garcia MD [address] [place] [address] [place] [address] Physician Hematology/Oncology 09/23/23 Deepika Garcia LSW Older Adult Social Work Specialist 09/24/[address] [place] [address] [place] [address] Registered Dietitian Nutrition 10/22/23 Nia Snider, MALORIE Specialty [facility] Spinner Hematology/Oncology 04/22/24 documented as of this encounter
--- OUTSIDE RECORDS SUMMARY | 2025-04-05 13:00 | XMS_ITS | Encounter Summary ---
Author Organization [facility] Sys tem Address [id number] [address] 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 Name Role Phone Sunny Jenkins MD Primary Care Provider [phone] Reason for Visit * Reason Comments sinus infection Encounter Details Date Type Department Care Team (Late st Contact Info) Description 04/05/2025 1:00 PM EDT Office Visit [facility] [address] [place] [address] [address] [address] Julian Mathew, DO [address] [facility], [address] [place] [address] Acute recurrent pansinusitis (Primary Dx); Vaginal candidiasis; Yeast dermatitis Social History Tobacco Use Types Packs/Day Years Used Date Smoking Tobacco: Never Smokeless Tobacco: Never Tobacco Cessation:Counseling Given: Not Answered Alcohol Use Standard Drinks/Week Comments Not Currently 0 (1 standard drink = 0.6 oz pur e alcohol) rare Overall Financial Resource Strain (CARDIA) Answe r Date Recorded How hard is it for you to pa y for the very basics like food, housing, medical care, and heating? Not hard at all 04/05/2025 PHQ-2 Answer Date Recorded Total Score 0 04/05/2025 PRAPARE - Transportation Answer Date Re corded In the past 12 months, has l ack of transportation kept you from medical appointments or from getting medications? No 03/26 In the past 12 months, has l ack of transportation kept you from meetings, work, or from getting things needed for daily living? No 04/05/2025 Housing Instability Answer Date Recorde d Are you worried or concerned that in the next two months you may not have stable housing that you own, rent or stay in as a part of a household? No 04/05/2025 Childcare Answer Date Recorded Childcare Unknown 02/04/2019 Employment Answer Date Recorded Employment Unknown 02/04/2019 Hunger Screening Answer Date Recorded Within the past 12 months we worried whether our food would run out before we got money to buy more. Never True 04/05/2025 Within the past 12 months th e food we bought just didn't last and we didn't have money to get more. Never True 04/05/2025 Purpose - Life Answer Date Recorded Purpose and direction in life Unknown Comments No Sex and Gender Information Value Date Recorded Sex Assigned at Not on file Legal Sex Female 11:30 AM EDT Gender Identity Not on file Sexual Orientation Not on file documented as of this encounter Last Filed Vital Signs Vital Sign Reading Time Taken Comments Blood Pressure 134/72 04/05/2025 1:07 PM EDT Pulse 66 04/05/2025 1:07 PM EDT Temperature 36.9 C (98.4 F) 04/05/2025 1:07 PM EDT Respiratory Rate - - Oxygen Saturation 96% 04/05/2025 1:07 PM EDT Inhaled Oxygen Concentration - - Weight 120.5 kg (265 lb 9.6 oz) 04/05/2025 1:07 PM EDT Height - - Body Mass Index 48.58 06/10/2024 9:21 AM EDT documented in this encounter Patient Instructions * Patient Instructions* Julian Mathew DO - 04/05/2025 1:00 PM EDT Symptoms consistent with acute sinusitis. Start on antibiotic Cefdinir 300 mg 1 capsule twice dailyfor 7 days. documented in this encounter Progress Notes * Julian Mathew DO - 04/05/2025 1:00 PM EDT Images from the original note were not included. [facility] [address] [place] [address] [place] [address] Patient: Yue Solomon Date of : 1955 Encounter Date: 04/05/2025 Subjective: Chief Complaint Chief Complaint Patient presents with sinus infection History of Present Illness Yue Solomon is a 69 y.o. female, Established patient, that presents to the office for sinus symptoms. History provided by patient. Sinusitis This is a new problem. Episode onset: 1-2 weeks ago with worsening symptom. Cough so severe that she was not able to have EDG Saturday. Maximum temperature: [place] low grade fever. Associated symptoms include congestion, coughing (Primarily dry cough with rare episodes of cleat milky drainage), sinus pr essure, a sore throat and swollen glands. Pertinent negatives include no chills or ear pain. (Having pain on right side of jaw, pressure around eyes, post nasal drainage ) Review of Systems Review of Systems Constitutional: Negative for chills. HENT: Positive for congestion, sinus pressure and sore throat. Negative for ear pain. Respiratory: Positive for cough (Primarily dry cough with rare episodes of cleat milky drainage). Genitourinary: Patient states that she does get yeast infections commonly after antibiotics Skin: Positive for rash (patient states that she has a rash under her skin folds along the left side of her abdomen which she gets repeatedly she uses nystatin cream to help with itching and irritation). Vital Signs BP 134/72 (BP Site: Left Arm, BP Postition: Sitting) Pulse 66 Temp 36.9 ??C (98.4 ??F) (Oral) Wt 120.5 kg (265 lb 9.6 oz) SpO2 96% BMI 48.58 kg/m?? Physical Exam Physical Exam Vitals reviewed. Constitutional: General: She is not in acute distress. Appearance: She is not ill-appearing or toxic-appearing. Comments: Ambulates with assistance of walker with wheels HENT: Head: Normocephalic and atraumatic. Salivary Glands: Right salivary gland is not diffusely enlarged or tender. Left salivary gland is not diffusely enlarged or tender. Comments: Hyper nasal voice Right Ear: No middle ear effusion. Tympanic membrane is not bulging. Left Ear: A middle ear effusion (mucoid) is present. Tympanic membrane is bulging. Tympanic membrane is not erythematous. Nose: Right Sinus: Maxillary sinus tenderness present. No frontal sinus tenderness. Left Sinus: No maxillary sinus tenderness or frontal sinus tenderness. Mouth/Throat: Lips: [place]. No lesions. Comments: Due to positioning and body habitus unable to see pharynx Cardiovascular: Rate and Rhythm: Normal rate and regular rhythm. Heart sounds: No murmur heard. Pulmonary: Effort: No accessory muscle usage or respiratory distress. Breath sounds: Normal breath sounds. No decreased breath sounds, wheezing, rhonchi or rales. Musculoskeletal: Cervical back: Neck supple. Lymphadenopathy: Cervical: No cervical adenopathy. Past Medical, Family, Surgery and Social History Past Medical History: Diagnosis Date Allergic Arthritis Back pain Breast cancer ([facility]) 06/26/2023 Cataract COPD (chronic obstructive pulmonary disease) ([facility]) GERD (gastroesophageal reflux disease) Heart murmur History of blood clots HTN (hypertension) Hyperlipidemia Kidney stones Obesity Pneumonia Primary invasive malignant neoplasm of female breast, left ([facility]) 06/28/2023 Recurrent UTI Rheumatoid arthritis ([facility]) Scoliosis Shingles Varicella Visual impairment glasses Past Surgical History: Procedure Laterality Date BACK SURGERY x2 BREAST BIOPSY SECTION COLONOSCOPY EYE SURGERY JOINT REPLACEMENT LYMPH NODE BIOPSY REPLACEMENT TOTAL KNEE BILATERAL SPINE SURGERY Family History Problem Relation Age of Onset Arthritis Mother Hypertension Mother Prostate cancer Father Arthritis Father Heart disease Father Hypertension Father Heart failure Father Cancer Sister Stroke Sister Rectal cancer Sister Breast cancer Paternal Aunt Diabetes Paternal Aunt Social History Socioeconomic History Marital status: Spouse name: Not on file Number of children: Not on file Years of education: Not on file Highest education level: Not on file Occupational History Not on file Tobacco Use Smoking status: Never Smokeless tobacco: Never Vaping Use Vaping status: Never Used Substance and Sexual Activity Alcohol use: Not Currently Comment: rare Drug use: Never Sexual activity: Not Currently Partners: Male control/protection: None Other Topics Concern Not on file Social History Narrative Not on file Social Drivers of Health Financial Resource Strain: Low Risk (04/05/2025) Overall Financial Resource Strain (CARDIA) Difficulty of Paying Living Expenses: Not hard at all Food Insecurity: No Food Insecurity (04/05/2025) Hunger Screening Food Insecurity - Worry: Never True Food Insecurity - Inability: Never True Transportation Needs: No Transportation Needs (04/05/2025) PRAPARE - Transportation Lack of Transportation (Medical): No Lack of Transportation (Non-Medical): No Physical Activity: Not on file Stress: Not on file Social Connections: Not on file Interpersonal Safety: Not on file Housing Instability: Low Risk (04/05/2025) Housing Instability Housing Instability: No Allergies and Current Medications Allergies Allergen Reactions Adhesive Other (See Comments) Fentanyl Adhesive Tape-Silicones Rash Sulfa (Sulfonamide Antibiotics) Rash Current Outpatient Medications on File Prior to Visit Medication Sig acetaminophen (TYLENOL EXTRA STRENGTH) 500 mg tablet Take 2 tablets (1,000 mg total) by mouth every6 (six) hours as needed for pain. atorvastatin (LIPITOR) 40 mg tablet TAKE 1 TABLET (40 MG TOTAL) BY MOUTH IN THE MORNING cholecalciferol, vitamin D3, 5,000 units tablet Take 1 tablet (5,000 Units total) by mouth in the morning. folic acid (FOLVITE) 1 mg tablet TAKE 1 TABLET BY MOUTH IN THE MORNING. EXCEPT THE DAYS OF TAKING METHOTREXATE. furosemide (LASIX) 20 mg tablet TAKE 1 TABLET BY MOUTH 2 TIMES A DAY BEFORE MEALS. KLOR-CON M10 10 mEq CR tablet TAKE 1 TABLET (10 MEQ TOTAL) BY MOUTH IN THE MORNING AND 1 TABLET (10MEQ TOTAL) BEFORE BEDTIME. Lactobacillus acidophilus 500 million cell tablet Take by mouth in the morning. losartan (COZAAR) 50 mg tablet Take 1 tablet (50 mg total) by mouth in the morning. methotrexate 2.5 mg chemo tablet TAKE 6 TABLETS ONCE A WEEK. metoprolol tartrate (LOPRESSOR) 50 mg tablet Take 1 tablet (50 mg total) by mouth in the morning and 1 tablet (50 mg total) before bedtime. naproxen (NAPROSYN) 500 mg tablet TAKE 1 TABLET (500 MG TOTAL) BY MOUTH IN THE MORNING AND BEFORE BEDTIME nystatin-triamcinolone (MYCOLOG II) ointment Apply 1 Application topically in the morning and 1 Application before bedtime. predniSONE 5 mg tablets,dose pack One tab in the morning and one evening in the evening. spironolactone (ALDACTONE) 25 mg tablet TAKE 1 TABLET (25 MG TOTAL) BY MOUTH IN THE MORNING No current facility-administered medications on file prior to visit. Labs and Imaging Lab Results Component Value Date WBC 6.0 07/16/2023 HGB 14.2 07/16/2023 HCT 42.2 07/16/2023 PLT 296 07/16/2023 CHOL 215 (H) 04/24/2023 TRIG 103 04/24/2023 HDL 63 04/24/2023 ALT 107 (H) 01/17/2024 AST 46 (H) 01/17/2024 K 4.0 01/17/2024 CL 104 01/17/2024 CREATININE 1.08 (H) 01/17/2024 BUN 14 01/17/2024 CO2 25 01/17/2024 TSH 4.64 04/24/2023 HGBA1C 6.3 (H) 04/24/2023 CT angiogram chest CLINICAL HISTORY: A 68-year-old female with the [...] evidence of dissection. Great vessels of the aorticarch are patent. The heart is normal in [...] low as reasonably achievable. Finalized by Joshua Deal MD on 02/15/2024 8:48 PM Assessment/Plan: 1. Acute recurrent pansinusitis - cefDINIR (OMNICEF) 300 mg capsule; Take 1 capsule (300 mg total) by mouth in the morning and 1 capsule (300 mg total) before bedtime. Do all this for 7 days. Dispense: 14 capsule; Refill: 0 2. Vaginal candidiasis - fluconazole (DIFLUCAN) 150 mg tablet; Take 1 tablet (150 mg total) by mouth every 3 (three) days for 2 doses. Start at end of antibiotic Dispense: 2 tablet; Refill: 0 3. Yeast dermatitis - nystatin (MYCOSTATIN) cream; Apply 1 Application topically in the morning and 1 Application before bedtime. Dispense: 30 g; Refill: 1 Patient Instructions Symptoms consistent with acute sinusitis. Start on antibiotic Cefdinir 300 mg 1 capsule twice dailyfor 7 days. Discussed with patient management for recurrent sinusitis which could include referral to ENT for further evaluation or referral to java web engineer to see if certain allergens causing recurrent symptoms Due to history of recurrent vaginal candidiasis prescribed fluconazole 150 mg 1 tablet every 3 daysx2 doses to take at the end of antibiotics course. Apply nystatin cream topically to area of skin irritation twice daily until resolved Follow-up: For acute sinusitis follow-up as needed. Keep June 22, 2025 appointment - Julian Mathew DO 04/05/25 1:42 PM documented in this encounter Plan of Treatment Upcoming Encounters Date Type Department Care Team (Late st Contact Info) Description 06/22/2025 9:00 AM EDT Office Visit [facility] [address] [place] [address] [place] [address] Sunny Jenkins MD [address] [place] [address] [place], [place] [id number] documented as of this encounter Visit Diagnoses Diagnosis Acute recurrent pansinusitis- Primary Vaginal candidiasis Candidiasis of vulva and vagina Yeast dermatitis documented in this encounter Additional Health Concerns Assessment Noted Time PHQ-9 Depression Total Score: 0 04/05/20 25 1:05 PM EDT documented as of this encounter Care Teams Die Casting Machine Maintainer Relationship Specialty Start Date End Date Sunny Jenkins MD [address], [facility] [place] [address] PCP - General Internal Medicine 04/02/23 documented as of this encounter
--- OUTSIDE RECORDS SUMMARY | 2025-04-13 14:30 | XMS_ITS | Encounter Summary ---
Author Organization [facility] Address [address] [place] [address] Care Team Providers Care Occupational Health And Safety Officer Name Role Phone Janet Dillard DO Unavailable Unavailabl Sunny Stone MD Primary Care Provider [phone] Mitch Garcia MD Unavailable [phone] Deepika Garcia COKE PRODUCTION HEATER Unavailable Unavailable Nona Lomax RD Unavailable [phone] Nia Snider RN Unavailable Unavailable Source Comments In the event this information is protected by the Federal Confidentiality of Alcohol and Drug AbusePatient Records regulations: The Federal rules restrict any use of the information to criminally investigate or prosecute any alcohol or drug abuse patient.[facility] Reason for Referral * Physical Therapy/Occupational Therapy (Routine) - Pending Review Specialty Diagnoses / Procedures Referred By Binu t Referred To Contact [facility] Diagnoses Invasive lobular carcinoma of breast in female (HCC) Procedures PHYSICAL THERAPY EVALUATION HIGH COMPLEX 45 MINS OCCUPATIONAL THERAPY EVAL HIGH COMPLEX 60 MINS Mitch Garcia MD [address] [place] [address] Phone: tel: fax: [facility] [address] [place] [address] Referral ID Status Reason Start Date Expiration Date Visits Requested Visits Authorized [id number] Pending Review Auto-Generat ed Referral 04/13/2025 07/12/2025 99 99 Scheduling Instructions For an appointment call [facility]: [phone]. The geek squad agent will assist you in selecting the location and specialty service that will best meet your needs. Order Date: 04/13/2025 Ordering Provider: Cinthia Mcintosh LPN (Signed Electronically in To8to) Reason for Visit * Reason Comments Established Patient Encounter Details Date Type Department Care Team (Latest Contact Info) Description 04/13/2025 2:30 PM EDT Visit (SP) Office Hematology [address] [place] [address] Mitch Garcia MD [address] [place] [address] Invasive lobular carcinoma of breast in female (HCC) (Primary Dx); Bilateral leg edema; Osteopenia of multiple sites Social History Tobacco Use Types Packs/Day Years [...] place to sleep or slept in a fpc (including now)? No 07/30/2023 Area Deprivation Index Answer Date Joaquin rded National Score (1-100), lower number is lower ri sk 92 01/29/2023 State Score (1-10), lower number is lower risk 9 01/29/2023 Data from: https://www.neighborhoodatlas.medicine.[facility].edu/. Last address used for calculation [address] [place] [address] 01/29/2023 Comments No Sex and Gender Information Value Date Recorded Sex Assigned at Female 08/14/2024 10:40 AM EST Legal Sex Female 8:08 AM EST Gender Identity Not on file Sexual Orientation Straight 08/14/2024 10 :40 AM EST documented as of this encounter Last Filed Vital Signs Vital Sign Reading Time Taken Comments Blood Pressure 151/53 04/13/2025 2:43 PM EDT Pulse 72 04/13/2025 2:43 PM EDT Temperature 36.4 C (97.6 F) 04/13/2025 2:43 PM EDT Respiratory Rate 18 04/13/2025 2:43 PM EDT Oxygen Saturation 98% 04/13/2025 2:43 PM EDT Inhaled Oxygen Concentration - - Weight 120 kg (264 lb 7.1 oz) 04/13/2025 2:43 PM EDT Height 157.5 cm (5' 2 ) 04/13/2025 2:43 PM EDT Body Mass Index 48.37 04/13/2025 2:43 PM EDT documented in this encounter Functional Status * Are you deaf or do you have serious difficulty hearing? Answer Date of Assessment Author No 09/05/2023 8:47 AM EST Belle Xiong RN * Are you blind or do [...] Belle Sandoval RN documented in this encounter Patient Instructions * Patient Instructions* Cinthia Mcintosh LPN - 04/13/2025 3:19 PM EDT Schedule labs prior to Virtual visit with DR Garcia 2 months Schedule proliainjection in [place] next day documented in this encounter Progress Notes * Mitch Garcia MD - 04/13/2025 2:41 PM EDT PATIENT NAME: Yue Solomon CLINIC NO.: [id number] ATTENDING PHYSICIAN: Mitch Garcia MD DATE OF SERVICE: April 13, 2025 Some of the elements of this note have been copied from my previous progress note dated 12/30/2024. All the information has been reviewed carefully. Dear Dr. Mendoza Yang here is an update on a follow up visit on female Yue Solomon at the clinic April 13, 2025 Diagnosis: L Breast Cancer: pT3,N3,M0, Grade 2 ILC, 6.3 cm, LVI present, Margins Negative, ER 80%, OK 5% and Her-2 IHC-0 Germline testing 07/2023: A variant of uncertain significance (VUS) was detected in BAP1 (c.1421C>T). ECHO 08/2023: EF 55-60% and normal wall motion Bone mineral density September 2024- normal BMD Treatment History: July 29, 2023: Left mastectomy [...] Zometa q 6 months started 04/21/2024-next September 2024, held secondary to renal function. Resumed 12/30/2024- Switch to Prolia in 06/2025 due to renal functikon 7. Arimdex 04/2024- Stopped 07/2024 due to arthralgia 8. Verzinio End of April 2024- required dose reduction due to GI AE.-- 100 mg PO BID- 05/2024- Stopped 06/2024 due to diarrhea. 9. Ribociclib 400 mg 21 out of 28 days started June 2024 10. Letrozole 08/2024 after resolution of arthralgia from the Arimidex. HPI: Yue Solomon is a 68 year old year old female here for follow up. Briefly, Yue felt a lump in her breast few [...] grade 1 invasive lobular carcinoma ER 80%, OK 5% and HER2/akash with IHC 0. A [...] elected to transfer her care to the [facility] and underwent a L breast mastectomy [...] without any abnormalities. Interval History: She is doing OK with the Femara and also the Kisquali. Denies any nausea and alden denies any diarrhea. She denies any Shortness of Breath and also denies ay rashes. Denies any bony pain. She has beenoff her MTX and wondering if she needs to restart that with her RA. PAST MEDICAL HISTORY Diagnosis Date Atrial fibrillation [...] Abdomen soft, non-tender. No masses, organomegaly Extremities: R arm lymphedema Jake yeahand lower thoracic family yeah no problem also lymphedema yeah in the R axilla Neuro: Gait and speech normal. Reflexes normal and symmetric. Muscular strength intact. Sensation grossly intact. Rectal: Deferred : Deferred LABS: Glucose (mg/dL) Date Value 03/30/2025 140 04/02/2018 129 Potassium (mmol/L) Date Value 03/30/2025 4.5 04/02/2018 4.1 Sodium (mmol/L) Date Value 03/30/2025 137 04/02/2018 136 Chloride (mmol/L) Date Value 03/30/2025 101 04/02/2018 100 CO2 (mmol/L) Date Value 03/30/2025 25 04/02/2018 25 Creatinine (mg/dL) Date Value 03/30/2025 1.48 04/02/2018 0.83 BUN (mg/dL) Date Value 03/30/2025 18 04/02/2018 16 Anion Gap (mmol/L) Date Value 03/30/2025 11 04/02/2018 11 Calcium (mg/dL) Date Value 04/02/2018 8.2 Calcium, Total (mg/dL) Date Value 03/30/2025 9.5 Protein, Total (g/dL) Date Value 03/30/2025 6.9 03/19/2018 6.8 Albumin (g/dL) Date Value 03/30/2025 4.0 03/19/2018 4.2 Bilirubin, Total (mg/dL) Date Value 03/30/2025 0.6 03/19/2018 0.5 Alkaline Phosphatase (U/L) Date Value 03/30/2025 105 03/19/2018 107 AST (U/L) Date Value 03/30/2025 15 03/19/2018 27 ALT (U/L) Date Value 03/30/2025 19 03/19/2018 38 WBC Date Value Ref Range Status 03/30/2025 3.64 (L) 3.70 - 11.00 k/uL Final RBC Date Value Ref Range Status 03/30/2025 3.67 (L) 3.90 - 5.20 m/uL Final Hemoglobin Date Value Ref Range Status 03/30/2025 12.8 11.5 - 15.5 g/dL Final Hematocrit Date Value Ref Range Status 03/30/2025 38.1 36.0 - 46.0 % Final MCV Date Value Ref Range Status 03/30/2025 103.8 (H) 80.0 - 100.0 fL Final MCH Date Value Ref Range Status 03/30/2025 34.9 (H) 26.0 - 34.0 pg Final MCHC Date Value Ref Range Status 03/30/2025 33.6 30.5 - 36.0 g/dL Final RDW-CV Date Value Ref Range Status 03/30/2025 14.6 11.5 - 15.0 % Final Platelet Count Date Value Ref Range Status 03/30/2025 346 150 - 400 k/uL Final MPV Date Value Ref Range Status 03/30/2025 9.0 9.0 - 12.7 fL Final Abs Neut Date Value Ref Range Status 03/30/2025 2.59 1.45 - 7.50 k/uL Final Lymphocytes % Date Value Ref Range Status 03/30/2025 21.2 % Final Abs Lymph Date Value Ref Range Status 03/30/2025 0.77 (L) 1.00 - 4.00 k/uL Final Monocytes % Date Value Ref Range Status 03/30/2025 4.9 % Final Abs Loíza Date Value Ref Range Status 03/30/2025 0.18 <0.87 k/uL Final Eosin% Date Value Ref Range Status 11/05/2023 0.9 % Final Abs Eosin Date Value Ref Range Status 03/30/2025 0.05 <0.46 k/uL Final Basophils % Date Value Ref Range Status 03/30/2025 1.1 % Final Abs Baso Date Value Ref Range Status 03/30/2025 0.04 <0.11 k/uL Final PATH: L Breast [...] Isolated Tumor Cells 1 Size of Largest [place] Metastatic Deposit 18 mm Extranodal Extension Present, greater than 2 mm Total Number of Lymph Nodes Examined (sentinel and non-sentinel) 4 Number of Clawson Nodes Examined 4 pTNM CLASSIFICATION (AJCC 8th Edition) Reporting of pT, pN, and (when applicable) pM categories is based on information available to the pathologist at the time the report is issued. As per the AJCC (Chapter 1, 8th Ed.) it is the managingphysician???s responsibility to establish the final pathologic stage [...] 12/2023 and US: Negative. Assessment and Plan: Yue Solomon is a 67 year old year old female here for follow up. Postmenopausal female with a T3, N3, M0, invasive lobular carcinoma, grade 2, ER 80%, OK 5% and HER2/akash negative, IHC 0, cancer [...] Taxol which she only received 2 doses was12/31/2023. She completed L breast and regional radiation 03/24/2024 Discussed adjuvant hormonal therapy with AI and also Trang in great length discussed the adverseevents associated with an aromatase inhibitor including. Bone loss, fracture, vaginal dryness as well as arthralgia. We also discussed the side effects associated with Verzenio including diarrhea andleukopenia and a risk of thrombosis. All her questions were answered to her satisfaction. She was started on anastrozole early April 2024 and she was having significant arthralgias. Arimidex was stopped in July 2024. Her symptoms almost nearly resolved and after lengthy discussionshe started letrozole August 2024, tolerating well thus far.. Verzenio was started later due to patient reproductive healthcare assistant program in late April 2024 at 150 mg twice daily however, she is having increasing GI adverse events and at this point I suggested reducing the dose to 100 mg p.o. twice daily. Shewas unable to tolerate the 100 mg p.o. twice daily and would like to discuss an alternate option. Idid discuss the rationale for the addition of the CDK 4/6 inhibitor. Her Verzenio was stopped in June 2024 and she was switched to Ribociclib. EKG monitoring did not reveal any QTc prolongation.Continue Femara and also Kisquali. Acute diverticulitis-patient has had diverticulitis in the past improved on antibiotics. No furtherepisodes since stopping chemotherapy Monitor grade 1 neurotoxicity. PE Completed 3 months of NOAC and was felt to be provoked. CTA 01/2024 was negative Monitor creatinine-will refer to nephrology. Follow-up on LFTs-resolved Continue PT for lymphedema - Started Zometa q 6 months 04/21/2024-Held September 2024 dose and resume 12/30/2024 - Next dose in 3 months, but will transition to Prolia given the renal function CRI- Following nephrology Hiatal Hernia- Refer to Dr. Bari Odonnell Hip osteoarthritis- Ortho referral and encouraged weight loss RA- re-establish care with Rheum Will see patient back in 3 months and follow up on labs and also Zometa. Thank you for the kind referral. If there are any questions and or concerns please do not hesitate to contact me at [phone]. Mitch Garcia MD Hematology/Medical Oncology [facility] spent a total of 30 minutes on the date of the service which included preparing to see the patient, [id number] patient care, completing clinical documentation, obtaining and/or reviewing separately obtained history, performing a medically appropriate examination, and counseling and educating the patient/family/caregiver. CC: Sunny Jenkins MD documented in this encounter Plan of Treatment Upcoming Encounters Date Type Department Care Team (Late st Contact Info) Description 05/10/2025 7:15 AM EDT Specialty Pharmacy [facility] [address] [place], [place] [id number]-[address] [place] [address] Pharmacist, [facility] [address] [place] [address] [place] [address] Refill - Kisqali [28DS] C09/22 05/17/2025 8:00 AM EDT Procedure Pulmonary Lab [address] [facility] [place] [address] Dyspnea and respiratory abnormalities [R06.00, R06.89] 05/17/2025 8:15 AM EDT Procedure Pulmonary Lab [address] [facility] [place] [address] Dyspnea and respiratory abnormalities [R06.00, R06.89] 05/17/2025 8:30 AM EDT Office Visit Pulmonary Medicine [address] [facility] [place] [address] Dayanna Alatorre, FORESTRY SUPERVISOR.ROLL CARRIER [address] [facility] [place] [address] Return in about 1 month (around 05/17/2025). 06/10/2025 1:30 PM EDT Appointment Procedures [address] [place] [address] Debbie Gunn MD [address] [place], [place] [id number] 07/07/2025 9:00 AM [facility] Infusion Center Hematology/Oncolo gy [address] [place] [address] lab 07/14/2025 9:30 AM [facility] Hematology [address] [place] [address] Mitch Garcia MD [address] [place] [address] Schedule labs prior to Virtual visit with DR Garcia 07/15/2025 9:00 AM [facility] Infusion Center Hematology/Oncolo gy [address] [place] [address] Prolia injection day after RADHA virtual visit per staff message 08/23/2025 10:00 AM EST Office Visit Kidney Medicine [address] [place] [address] Shante Carroll APRN.ROLL CARRIER [address] [facility] [place] [address] 6 month follow up 11/01/2025 2:00 PM EDT Office Visit Rheumatology [address] [place], [place] [id number] Nany Bustillos MD [address] [place] [address] RA Scheduled Orders Name Type Priority Associated Diagnoses Orde r Schedule COMPLETE BLOOD COUNT AND DIFFERENTIAL Lab Routine Invasive lobular carcinoma of breast in female (HCC) Expected: 07/14/2025 (Approximate), Expires: 10/13/2025 COMPREHENSIVE METABOLIC PANEL Lab Routine Invasive lobular carcinoma of breast in female (HCC) Expected: 07/14/2025 (Approximate), Expires: 10/13/2025 Scheduled Referrals Name Type Priority Associated Diagnoses Orde r Schedule CONSULT TO LYMPHEDEMA THERAPY Referral Routine Invasive lobular carcinoma of breast in female (HCC) 1 Occurrences starting 04/13/2025 documented as of this encounter Visit Diagnoses Diagnosis Invasive lobular carcinoma of breast in female (HCC)- Primary Bilateral leg edema Edema Osteopenia of multiple sites documented in this encounter Care Teams Occupational Health And Safety Officer Relationship Specialty Start Date End Date Sunny Jenkins MD PCP - General Internal Medicine 08/22/23 Janet Dillard DO Referring Family Medicine 07/14/21 Mitch Garcia MD [address] [place] [address] [place] [address] Physician Hematology/Oncology 09/23/23 Deepika Garcia LSW Crosscutter 09/24/[address] [place] [address] Registered Dietitian Nutrition 10/22/23 Nia Snider, MALORIE Specialty Hull Line Crew Member Hematology/Oncology 04/22/24 documented as of this encounter
--- OUTSIDE RECORDS SUMMARY | 2025-04-16 07:30 | XMS_ITS | Encounter Summary ---
Author Organization [facility] Address [facility] [place] [address] Care Team Providers Care Para Operator Name Role Phone Janet Dillard DO Unavailable Unavailabl Sunny Stone MD Primary Care Provider [phone] Mitch Garcia MD Unavailable Deepika Garcia Unavailable Unavailable Noan Lomax RD Unavailable [phone] Nia Snider RN Unavailable Unavailable Source Comments In the event this information is protected by the Federal Confidentiality of Alcohol and Drug AbusePatient Records regulations: The Federal rules restrict any use of the information to criminally investigate or prosecute any alcohol or drug abuse patient.[facility] Reason for Visit * Reason Comments Spirometry * Outpatient Procedure (Routine) - Closed Specialty Diagnoses / Procedures Referred By Contac t Referred To Contact [facility] Diagnoses Dyspnea, unspecified type Procedures SPIROMETRY WITH DILATOR IF OBSTRUCTED BRNCDILAT RSPSE SPMTRY PRE&POST-BRNCDILAT ADMN Boom Mcintosh MD [address] [place] [address] Phone: tel: fax: [facility] [address] [place] [address] Referral ID Status Reason Start Date Expiration Date V isits Requested Visits Authorized [id number] Closed Auto-Generate d Referral 04/14/2025 05/14/2026 1 1 Encounter Details Date Type Department Care Team (Late st Contact Info) Description 04/16/2025 7:30 AM EDT Procedure Pulmonary Lab [address] [place], [place] [id number] Spirometry Social History Tobacco Use Types Packs/Day Years [...] place to sleep or slept in a retirement (including now)? No 07/30/2023 Area Deprivation Index Answer Date Joaquin rded National Score (1-100), lower number is lower ri sk 92 01/29/2023 State Score (1-10), lower number is lower risk 9 01/29/2023 Data from: https://www.neighborhoodatlas.medicine.[facility]/. Last address used for calculation [place] 01/29/2023 Comments No Sex and Gender Information [...] Belle Sandoval RN documented in this encounter Plan of Treatment Upcoming Encounters Date Type Department Care Team (Late st Contact Info) Description 05/10/2025 7:15 AM EDT Specialty Pharmacy [facility] [address] [place], [place] [address]-[address] [place] [address] Pharmacist, [facility] [address] [place] [address] Refill - Kisqali [28DS] C005/1705/17/2025 8:00 AM EDT Procedure Pulmonary Lab [address] [place] [address] Dyspnea and respiratory abnormalities [R06.00, R06.89] 05/17/2025 8:15 AM EDT Procedure Pulmonary Lab [address] [place] [address] Dyspnea and respiratory abnormalities [R06.00, R06.89] 05/17/2025 8:30 AM EDT Office Visit Pulmonary Medicine [address] [place] [address] Dayanna Alatorre, HOSTESS HOST.IMPREGNATING HELPER [address] [facility] [place] [address] Return in about 1 month (around 05/17/2025). 06/10/2025 1:30 PM EDT Appointment Procedures [address] [place] [address] Debbie Gunn MD [address] [place], [place] [id number] 07/07/2025 9:00 AM [facility] Infusion Center Hematology/Oncolo gy [address] [place] [address] lab 07/14/2025 9:30 AM [facility] Hematology [address] [place] [address] Mitch Garcia MD [address] [place] [address] Schedule labs prior to Virtual visit with DR Garcia 07/15/2025 9:00 AM [facility] Infusion Center Hematology/Oncolo gy [address] [place] [address] Prolia injection day after RADHA virtual visit per staff message 08/23/2025 10:00 AM EST Office Visit Kidney Medicine [address] [place] [address] Shante Carroll, HOSTESS HOST.IMPREGNATING HELPER [address] [facility] [place] [address] 6 month follow up 11/01/2025 2:00 PM EDT Office Visit Rheumatology [address] [place], [place] [id number] Nany Bustillos MD [address] [facility] [address] [place] [id number] RA documented as of this encounter Procedures Procedure Name Priority Date/Time Associated Diagnosis Comments SPIROMETRY WITH DILATOR IF OBSTRUCTED Routine 04/16/2025 7:25 AM EDT Dyspnea, unspecified type documented in this encounter Results * SPIROMETRY WITH DILATOR IF OBSTRUCTED (04/16/2025 7:25 AM EDT) FVC PRE (L) 2.06 L PULMONAR Y FUNCTION LAB FVC PREDICTED (L) 2.42 L PULMONARY FUNCTION LAB FVC LLN (L) 1.71 L PULMONAR Y FUNCTION LAB FVC ULN (L) 3.15 L PULMONAR Y FUNCTION LAB FEV1 PRE (L) 1.62 L PULMONA RY FUNCTION LAB FEV1 PREDICTED (L) 1.91 L PULMONARY FUNCTION LAB FEV1 LLN (L) 1.33 L PULMONA RY FUNCTION LAB FEV1 ULN (L) 2.45 L PULMONA RY FUNCTION LAB FEV1/FVC PRE (%) 79 % PULMONARY FUNCTION LAB FEV1/FVC PREDICTED (%) 79 % PULMONARY FUNCTION LAB FEV1/FVC LLN (%) 66 % PULMONARY FUNCTION LAB FEF25% PRE (L/S) 4.14 L/S PULMONARY FUNCTION LAB FEF75% PRE (L/S0 0.45 L/S PULMONARY FUNCTION LAB FEF75% PREDICTED (L/S) 0.41 L/S PULMONARY FUNCTION LAB FEF75% LLN (L/S) 0.15 L/S PULMONARY FUNCTION LAB FEF75% ULN (L/S) 1.09 L/S PULMONARY FUNCTION LAB JOH96-85% PRE (L/S) 1.53 L/S PULMONARY FUNCTION LAB IUD94-20% PREDICTED (L/S) 1.74 L/S PULMONARY FUNCTION LAB HLW16-54% LLN (L/S) 0.80 L/S PULMONARY FUNCTION LAB PEF PRE (L/S) 4.16 L/S PULMON SHANICE FUNCTION LAB PEF LLN (L/S) 3.61 L/S PULMON SHANICE FUNCTION LAB PEF ULN (L/S) 6.72 L/S PULMON SHANICE FUNCTION LAB FET PRE (S) 6.41 S PULMONAR Y FUNCTION LAB 04/16/2025 7:25 AM EDT Narrative PULMONARY FUNCTION LAB - 04/16/2025 9:54 AM EDT [place] [facility] [address] [place] [address] Test Date: 2025-04-16 Pat Name: YUE CAPUTO Department: Room: Gender: Female Labourers: : 1955 Requested By: Melonie Paz MD Order Number: [id number] [place] MD: Melonie Paz MD Interpretive Statements Current ATS/ERS acceptability and repeatability standards for spirometry met. Start of test and EOFE criteria met. //FP IMPRESSION: Spirometry is normal. Electronically Signed On 04-16-2025 09:54:21 EDT by Melonie Paz MD ID: [id number] Name: YUE CAPUTO Race: White Ht: 61.02 in Wt: 260.59 lbs Age: 69 Gender: Female : 1955 Dx: Dyspnea and respiratory abnormalities_ Smoking Hx: Non-smoker Doctor: BOOM MCINTOSH Test Date: 04/16/2025 Site: [facility] Tech: Leonard Cornejo PRE-BRONCH POST-BRONCH Mookie LLN Pred ULN %Pred ZScore Mookie %Pred %Chg ZScore SPIROMETRY FVC 2.06 1.71 2.42 3.15 84 -0.84 FEV1 1.62 1.33 1.91 2.45 84 -0.84 FEV1/FVC 0.79 0.66 0.79 0.90 98 -0.12 FEFMax 4.16 3.61 5.17 6.72 80 -1.06 FEF50 2.52 1.24 2.85 4.46 88 -0.34 FIF50 2.48 FEF50/FIF50 1.01 90-100 FIVC 1.98 FEF91-45 1.53 0.80 1.74 3.07 87 -0.32 ExpiredTime 6.41 TimeToFEFMax 0.13 LESLEY 0.10 VolExtrap% 5 Comments: Current ATS/ERS acceptability and repeatability standards for spirometry met. Start of test and EOFE criteria met. //FP us Boom Mcintosh MD SCHEDULED PROCEDURES Final Resul t PULMONARY FUNCTION LAB [address] [place] [address] documented in this encounter Visit Diagnoses Diagnosis Dyspnea, unspecified type- Primary documented in this encounter Care Teams Para Operator Relationship Specialty Start Date End Date Sunny Jenkins MD PCP - General Internal Medicine 08/22/23 Janet Dillard DO Referring Family Medicine 07/14/21 Mitch Garcia MD [address] [place] [address] Physician Hematology/Oncology 09/23/23 Deepika Garcia LSW Fire Suppression Captain 09/24/[address] [place] [address] [place] [address] Registered Dietitian Nutrition 10/22/23 Nia Snider, MALORIE Specialty Marking Machine Tender Hematology/Oncology 04/22/24 documented as of this encounter
--- OUTSIDE RECORDS SUMMARY | 2025-04-16 08:00 | XMS_ITS | Encounter Summary ---
Author Organization [facility] Address [facility] [place] [address] Care Team Providers Care Locomotive Engineer Name Role Phone Janet Dillard DO Unavailable Unavailabl Sunny Stone MD Primary Care Provider [phone] Mitch Garcia MD Unavailable [phone] Deepika Garcia Unavailable Unavailable Nona Lomax RD Unavailable [phone] Nia Snider RN Unavailable Unavailable Source Comments In the event this information is protected by the Federal Confidentiality of Alcohol and Drug AbusePatient Records regulations: The Federal rules restrict any use of the information to criminally investigate or prosecute any alcohol or drug abuse patient.[facility] Reason for Referral * Outpatient Procedure (Routine) - Authorized Specialty Diagnoses / Procedures Referred By Contac t Referred To Contact [facility] Diagnoses Dyspnea and respiratory abnormalities Procedures LUNG DIFFUSION CAPACITY (DLCO) DIFFUSING CAPACITY Jules Mcintosh MD [address] [place] [address] Phone: tel: fax: [facility] [address] [place] [id number] Referral ID Status Reason Start Date Expiration Date Visits Requested Visits Authorized [id number] Authorized Auto-Generat ed Referral 04/16/2025 05/16/2026 1 1 * Outpatient Procedure (Routine) - Authorized Specialty Diagnoses / Procedures Referred By Contac t Referred To Contact [facility] Diagnoses Dyspnea and respiratory abnormalities Procedures LUNG VOLUMES Jules Mcintosh MD [address] [place] [address] Phone: tel: fax: [facility] [address] [place] [address] Referral ID Status Reason Start Date Expiration Date Visits Requested Visits Authorized [id number] Authorized Auto-Generat ed Referral 04/16/2025 05/16/2026 1 1 Reason for Visit * Reason Comments Difficulty Breathing Encounter Details Date Type Department Care Team (Latest Contact Info) Description 04/16/2025 8:00 AM EDT Office Visit Pulmonary Medicine [address] [place] [address] Jules Mcintosh MD [address] [place] [address] Dyspnea and respiratory abnormalities (Primary Dx); Hiatal hernia; Other idiopathic scoliosis, unspecified spinal region; Class 3 severe obesity with body mass index (BMI) of 45.0 to 49.9 in adult, unspecified obesity type, unspecified whether serious comorbidity present (HCC) Social History Tobacco Use Types Packs/Day Years Used Date Smoking Tobacco: Never Smokeless Tobacco: Never Tobacco Cessation:Counseling Given: Not Answered Alcohol Use Standard Drinks/Week Comments Yes 0 [...] is lower risk 9 01/29/2023 Data from: https://www.neighborhoodatlas.medicine.[facility].edu/. Last address used for calculation Armando Mayen 01/29/2023 Comments No Sex and Gender Information Value Date Recorded Sex Assigned at Female 08/14/2024 10:40 AM EST Legal Sex Female 8:08 AM EST Gender Identity Not on file Sexual Orientation Straight 08/14/2024 10 :40 AM EST documented as of this encounter Last Filed Vital Signs Vital Sign Reading Time Taken Comments Blood Pressure 149/63 04/16/2025 7:46 AM EDT Pulse 81 04/16/2025 7:46 AM EDT Temperature - - Respiratory Rate - - Oxygen Saturation 98% 04/16/2025 7:46 AM EDT Inhaled Oxygen Concentration - - Weight 118.2 kg (260 lb 9.3 oz) 04/16/2025 7:46 AM EDT Height 157.5 cm (5' 2 ) 04/16/2025 7:46 AM EDT Body Mass Index 47.66 04/16/2025 7:46 AM EDT documented in this encounter Functional Status [...] this encounter Patient Instructions * Patient Instructions* Jules Mcintosh MD - 04/16/2025 8:10 AM EDT Today we discussed your breathing and your breathing test today, we will check a couple more in depth breathing tests and have you come back in 1 month. documented in this encounter H&P Notes * Jules Mcintosh MD - 04/16/2025 8:00 AM EDT Images from the original note were not included. . [facility] Note Ms. Solomon is a 69 year old female who presents to the [facility]. Consultation requested by Dr. Gómez Weston for an opinion regarding dyspnea.. My final recommendations/evaluation will be communicated back to the requesting physician by way of shared medical record or letter via US mail. HPI: 69 year old female with L Breast Cancer s/p Mastectomy and RT, RA, Scoliosis, Hiatal Hernia, H/O Provoked PE s/p anticoagulation, and GERD that presents for an eval of difficulty breathing . Recording using ambient [employer] software for draft documentation of the visit was discussed with the patient/authorized automobile sales representative; all questions welcomed and answered. Patient/authorized automobile sales representative agreed to proceed Yue reports a 15-year history of dyspnea, which has progressively worsened. She experiences dyspnea after taking a few steps and even while talking on the phone. She also reports post-nasal drip and throat clearing due to allergies. She denies wheezing, hemoptysis, or a history of asthma. She hasnot used inhalers in the past. She also denies any known lung issues during childhood, but notes that she was unable to participate in long-distance running due to scoliosis. She has a history of a PE, which she attributes to chemotherapy. She was on anticoagulation therapyfor 3 months and denies any other thromboembolic events. She also denies any calf pain. She has a history of a hiatal hernia, which she believes is affecting her lung capacity. She is scheduled for an esophagram. She also has a history of GERD, which is currently well-controlled. She has a history of scoliosis, which she believes is affecting her lung capacity. She also has a history of bilateral knee replacements and is awaiting hip replacement surgery. She reports that her physical activity is limited due to hip pain. She was previously very active, participating in softball, volleyball, bowling, downhill skiing, and walking regularly. She has not been able to participate in these activities for the past 20 years due to knee and hip pain. She reports bilateral lower extremity edema and wears compression socks. She attributes the edema to her knee and hip issues and denies any known cardiac etiology. She denies any history of smoking, e-cigarette use, or vaping. She has a family history of scoliosis, with two cousins affected, one of whom has a collapsed lung due to scoliosis. She denies any known family history of lung issues. She notes some coughing related to sinus drainage but denies any wheezing. Past Medical History: PAST MEDICAL HISTORY Diagnosis Date Atrial fibrillation (HCC) Diverticulitis GERD (gastroesophageal reflux disease) Hiatal hernia HLD (hyperlipidemia) HTN (hypertension) Obesity, unspecified Other and unspecified hyperlipidemia Scoliosis Spinal stenosis, unspecified region other than cervical UTI (urinary tract infection) Past Surgical History: PAST SURGICAL HISTORY Procedure Laterality Date , CLASSIC, IN-HOSP CARE 1980 COLONOSCOPY CURETTAGE EGD MASTECTOMY, SIMPLE, COMPLETE Left PAST SURGICAL HISTORY OF 1986 spinal instrumentation (Valadez rods) PAST SURGICAL HISTORY OF 2006 lumbar laminectomy PAST SURGICAL HISTORY OF hysteroscopy with removal of fibroid, cyst, polyps PAST SURGICAL HISTORY OF Bilateral total knee arthroplasty [place] Work and Social Histories: SOCIAL HISTORY[1] No e cigarettes or vaping Occupation/Exposures: 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 nystatin (MYCOSTATIN) cream Apply 1 application to affected area. ribociclib (KISQALI) 400 mg/day (200 mg x 2) tab Take 2 tablets (400 mg) by mouth once daily for 21days on, then 7 days off to complete a 28-day treatment cycle. Discard after 60 days from fill date. letrozole (FEMARA) 2.5 mg tablet TAKE 1 TABLET BY MOUTH EVERY DAY cholecalciferol (VITAMIN D-3) 5,000 unit tab Take [...] MG TAB Take 50 mg by mouth once daily. PHYSICAL EXAM: BP 149/63 Pulse 81 Ht 5' 2 (1.58m) Wt 260 lb 9.3 oz (118.2kg) SpO2 98% LMP 08/26/2006 BMI 47.65 kg/(m^2). GEN: Alert, comfortable, sitting up in chair, no distress CV: RRR PULM: CTAB, no wheezing or crackles Labs / Imaging / Diagnostic Studies: All radiography listed below personally reviewed by me Data Reviewed from [facility] (in addition to that noted in HPI, and Past histories above): PFT: 04/16/25: Nl anu CT Chest 02/13/24: IMPRESSION: 1. No evidence of pulmonary embolization on CT pulmonary angiogram . 2. No evidence of dissection or aneurysm of the thoracic aorta. 3. No evidence of pulmonary infiltrates or acute pulmonary pathology is seen. Minimal left lower lobe atelectasis. 4. Large hiatal hernia. Echo 11/11/23: Narrative Left Ventricle: Systolic function is normal with an ejection fractionof 55-60%.Normal left ventricular size and systolic function. No significantly abnormal stenotic or regurgitant flows are presentLeft VentricleLeft ventricle appears normal in size. Wall thickness is normal. Systolic function is normal with an ejection fraction of 55-60%. No obvious regional wall motion abnormalities. Normal diastolic function is present. Lateral E' is 6.42 cm/s. Medial E' is 6.31 cm/s.Right VentricleRight ventricle was not well visualized. Systolic function is normal. Normal tricuspid annular plane systolic excursion. Normal systolic excursion velocity by TDI (>9.5 cm/s).Left AtriumLeft atrium volume index is normal. The left atrial volume index is 29.3 mL/m2. The pulmonary veins have normal venous flow.Right AtriumRight atrium was not well visualized.IVC/SVCIVC is not well visualized.Mitral ValveThe mitral valve was not well visualized. There is trace regurgitation. There is no evidence of mitral valve stenosis.Tricuspid ValveThe tricuspid valve was not well visualized. There is trace to mild regurgitation. There is no evidence of tricuspid valve stenosis.Aortic ValveThe aortic valve was not well visualized. There is sclerosis. There is no regurgitation or stenosis.Pulmonic ValveThe pulmonic valve was not well visualized. There is no evidence of pulmonic valve stenosis.Ascending AortaThe aortic root is normal in size.PericardiumPericardium was not well visualized.Study DetailsA complete echo was performed using complete 2D, color flow Doppler and spectral Doppler. Definity study was performed. Overall the study quality was adequate. The study had technical difficulties. The study was difficult due to patient's body habitus and poor acoustic windows. Patient had recent left breast mastectomy and left lymph node surgery with drain tube present. Assessment: Ms. Solomon is a 69 year old female who presents to [facility]. 1. Dyspnea and respiratory abnormalities (R06.00) 2. Hiatal hernia (K44.9) 3. Other idiopathic scoliosis, unspecified spinal region (M41.20) Chronic, progressively worsening dyspnea over 15 years, with significant functional limitation. Recent spirometry is normal, and CT chest from January 2024 shows no intrinsic lung pathology. Etiology ofdyspnea is likely multifactorial, with contributions from severe scoliosis, large hiatal hernia, and deconditioning due to musculoskeletal limitations. - Ordered full pulmonary function testing, including lung volumes, to further evaluate for restrictive or other patterns not detected on screening spirometry. - Educated patient that while hiatal hernia and scoliosis may contribute to dyspnea, normal spirometry and imaging suggest no major intrinsic lung disease; explained that surgical repair of the hernia is unlikely to fully resolve dyspnea, and that deconditioning and musculoskeletal factors are significant contributors. - Advised that increased physical activity and weight loss would provide the most benefit for dyspnea, but acknowledged current limitations due to hip pathology. - Follow-up with CURING ROOM WORKER after completion of full PFTs to review results and reassess. - Will communicate findings and assessment to Dr. Weston. 4. Class 3 severe obesity with body mass index (BMI) of 45.0 to 49.9 in adult, unspecified obesity type, unspecified whether serious comorbidity present (HCC) (E66.813) Obesity is a significant barrier to hip replacement surgery and is likely contributing to dyspnea and deconditioning. - Discussed the potential benefits of weight loss for improving dyspnea and enabling hip surgery; acknowledged the challenges posed by current physical limitations. - Discussed the possibility of weight loss medications; patient noted that prior consideration was interrupted by cancer diagnosis. I spent a total of 35 minutes on the date of the service which included preparing to see the patient, [id number] patient care, completing clinical documentation, obtaining and/or reviewing separately obtained history, performing a medically appropriate examination, counseling and educating the pat ient/family/caregiver, and ordering medications, tests, or procedures. Jules Mcintosh MD Pulmonary Critical Care Staff [1] Social History Tobacco Use Smoking status: Never Smokeless tobacco: Never Vaping Use Vaping status: Never Used Substance Use Topics Alcohol use: Yes Comment: socially- couple times per year Drug use: Never documented in this encounter Plan of Treatment Upcoming Encounters Date Type Department Care Team (Late st Contact Info) Description 05/10/2025 7:15 AM EDT Specialty Pharmacy [facility] [address] [place], [place] [id number][address] [place] [address] Pharmacist, [facility] [address] [place] [address] [address] [place], [place] [id number] Refill - Kisqali [28DS] C005/1705/17/2025 8:00 AM EDT Procedure Pulmonary Lab [address] [place] [address] Dyspnea and respiratory abnormalities [R06.00, R06.89] 05/17/2025 8:15 AM EDT Procedure Pulmonary Lab [address] [facility] [place] [address] Dyspnea and respiratory abnormalities [R06.00, R06.89] 05/17/2025 8:30 AM EDT Office Visit Pulmonary Medicine [address] [facility] [place] [address] Dayanna Alatorre APRN.MANAGER BANKING [address] [place] [address] Return in about 1 month (around 05/17/2025). 06/10/2025 1:30 PM EDT Appointment Procedures [address] [place] [address] Debbie Gunn MD [facility] [address] [place], [place] [id number] 07/07/2025 9:00 AM [facility] Infusion Center Hematology/Oncolo gy [address] [facility] [place] [address] lab 07/14/2025 9:30 AM EST [facility] Hematology [address] [place] [address] Mitch Garcia MD [address] [facility] [place] [address] Schedule labs prior to Virtual visit with DR Garcia 07/15/2025 9:00 AM [facility] Center Hematology/Oncolo gy [address] [place] [address] Prolia injection day after RADHA virtual visit per staff message 08/23/2025 10:00 AM EST Office Visit Kidney Medicine [address] [place] [address] Shante Carroll APRN.MANAGER BANKING [address] [facility] [place] [address] 6 month follow up 11/01/2025 2:00 PM EDT Office Visit Rheumatology [address] [facility] [place], [place] [id number] Nany Bustillos MD [address] [place] [address] RA Scheduled Orders Name Type Priority Associated Diagnoses Orde r Schedule LUNG VOLUMES PFT Routine Dyspnea and respiratory abnormalities 1 Occurrences starting 04/16/2025 until 05/16/2026 LUNG DIFFUSION CAPACITY (DLCO) PFT Routine Dyspnea and respiratory abnormalities 1 Occurrences starting 04/16/2025 until 05/16/2026 documented as of this encounter Visit Diagnoses Diagnosis Dyspnea and respiratory abnormalities- Primary Other dyspnea and respiratory abnormality Hiatal hernia Diaphragmatic hernia without mention of obstruction or gangrene Other idiopathic scoliosis, unspecified spinal region Class 3 severe obesity with body mass index (BMI) of 45.0 to 49.9 in adult, unspecified obesity type, unspecified whether serious comorbidity present (HCC) documented in this encounter Care Teams Locomotive Engineer Relationship Specialty Start Date End Date Sunny Jenkins MD PCP - General Internal Medicine 08/22/23 Janet Dillard DO Referring Family Medicine 07/14/21 Mitch Garcia MD [address] [facility] [place] [address] Physician Hematology/Oncology 09/23/23 Deepika Garcia LSW Floor Renovator 09/24/[address] [facility] [place] [address] Registered Dietitian Nutrition 10/22/23 Nia Snider, RN Specialty Broadcaster Hematology/Oncology 04/22/24 documented as of this encounter
[2025-04-19 08:31] VITALS: BP 138/56; PULSE 71; TEMP 36.6; O2SAT 97; BMI 48.5
--- OUTSIDE RECORDS SUMMARY | 2025-04-19 08:33 | XMS_ITS | Encounter Summary ---
Author Organization [facility] Address [address] [place] [address] Care Team Providers Care Single End Sewer Name Role Phone Janet Dillard DO Unavailable Unavailabl Sunny Stone MD Primary Care Provider [phone] Yvonne Baumann RN Unavailable [phone] Mitch Garcia MD Unavailable [phone] Hilda TempletonC Unavailable [phone] Deepika Garcia Unavailable Unavailable Nona Lomax RD Unavailable [phone] Nia Snider RN Unavailable Unavailable Source Comments In the event this information is protected by the Federal Confidentiality of Alcohol and Drug AbusePatient Records regulations: The Federal rules restrict any use of the information to criminally investigate or prosecute any alcohol or drug abuse patient.[facility] Encounter Details Date Type Department Care Team (Latest Contact Info) Description 11/19/2023 H&P External-NonCCF Provider, External, PA-C Do not enter address information under generic External Provider. Social History Tobacco Use Types Packs/Day Years [...] PHQ-2 Answer Date Recorded PHQ-2 score 0 08/05/2023 Hunger Vital Sign Answer Date Recorded Within [...] place to sleep or slept in a longterm (including now)? No 07/30/2023 Area Deprivation Index Answer Date Joaquin rded National Score (1-100), lower number is lower ri sk 92 01/29/2023 State Score (1-10), lower number is lower risk 9 01/29/2023 Data from: https://www.neighborhoodatlas.medicine.[employer].edu/. Last address used for calculation Armando Mayen [...] AM EDT Specialty Pharmacy [facility] [address] [place], [place] [address] [place] [address] Pharmacist, [facility] [address] [place] [phone] Refill - Kisqali [28DS] C005/1705/17/2025 8:00 AM EDT Procedure Pulmonary Lab [address] [place] [address] Dyspnea and respiratory abnormalities [R06.00, R06.89] 05/17/2025 8:15 AM EDT Procedure Pulmonary Lab [address] [place] [address] Dyspnea and respiratory abnormalities [R06.00, R06.89] 05/17/2025 8:30 AM EDT Office Visit Pulmonary Medicine [address] [place] [address] Dayanna Alatorre, WATCH ASSEMBLY INSPECTOR.CONNIE SCRATCHER [address] [place] [address] Return in about 1 month (around 05/17/2025). 06/10/2025 1:30 PM EDT Appointment Procedures [address] [place] [address] Debbie Gunn MD [address] [facility] [address] [place], [place] [phone]- 07/07/2025 9:00 AM [facility] Infusion Center Hematology/Oncolo gy [address] [facility] [place] [address] lab 07/14/2025 9:30 AM [facility] [address] Hematology [address] [place] [address] Mitch Garcia MD [address] [place] [address] Schedule labs prior to Virtual visit with DR Garcia 07/15/2025 9:00 AM [facility] Center Hematology/Oncolo gy [address] [facility] [place] [address] Prolia injection day after RADHA virtual visit per staff message 08/23/2025 10:00 AM EST Office Visit Kidney Medicine [address] [place] [address] Shante Carroll, WATCH ASSEMBLY INSPECTOR.CONNIE SCRATCHER [address] [facility] [place] [address] 6 month follow up 11/01/2025 2:00 PM EDT Office Visit Rheumatology [address] [facility] [place] [address] Nany Bustillos MD [address] [place] [address] RA documented as of this encounter Visit Diagnoses Not on filedocumented in this encounter Care Teams Single End Sewer Relationship Specialty Start Date End Date Sunny Jenkins MD PCP - General Internal Medicine 08/22/23 Janet Dillard DO Referring Family Medicine 07/14/21 Yvonne Baumann RN [address] [place] [address] [place] [address] Specialty Director Staffing Hematology/Oncology 09/23/23 04/21/24 Mitch Garcia MD [address] [place] [address] [place] [address] Physician Hematology/Oncology 09/23/23 Hilda Templeton PALeonelC [address] [place] [address] [place] [address] Physician Stem Lead Former Hematology/Oncology 09/23/23 Deepika Garcia LSW Sql Programmer 09/24/[address] [place] [address] [place] [address] Registered Dietitian Nutrition 10/22/23 Nia Snider, MALORIE Specialty Director Staffing Hematology/Oncology 04/22/24 documented as of this encounter
--- OUTSIDE RECORDS SUMMARY | 2025-04-19 08:33 | XMS_ITS | Encounter Summary ---
Author Organization [facility] Address [address] [place] [address] Care Team Providers Care Business Operations Manager Name Role Phone Janet Dillard DO Unavailable Unavailabl Sunny Stone MD Primary Care Provider [phone] Mitch Garcia MD Unavailable [phone] Deepika Garcia Unavailable Unavailable Nona Lomax RD Unavailable [phone] Nia Snider RN Unavailable Unavailable Source Comments In the event this information is protected by the Federal Confidentiality of Alcohol and Drug AbusePatient Records regulations: The Federal rules restrict any use of the information to criminally investigate or prosecute any alcohol or drug abuse patient.[facility] Encounter Details Date Type Department Care Team (Late st Contact Info) Description 01/06/2025 Patient [facility] HB-3 [address] [place] [address] Jackelyn Groevr RPh At your next appointment, choose [facility]. Social History Tobacco Use Types Packs/Day Years [...] PHQ-2 Answer Date Recorded PHQ-2 score 0 12/29/2024 Hunger Vital Sign Answer Date Recorded Within [...] place to sleep or slept in a chcf (including now)? No 07/30/2023 Area Deprivation Index Answer Date Joaquin rded National Score (1-100), lower number is lower ri sk 92 01/29/2023 State Score (1-10), lower number is lower risk 9 01/29/2023 Data from: https://www.neighborhoodatlas.medicine.[facility].edu/. Last address used for calculation Armando Mayen [...] AM EDT Specialty Pharmacy [facility] [address] [place], [place] [address]-[address] [place] [address] Pharmacist, [facility] [address] [place] [address] Refill - Kisqali [28DS] C005/1705/17/2025 8:00 AM EDT Procedure Pulmonary Lab [address] [place] [address] Dyspnea and respiratory abnormalities [R06.00, R06.89] 05/17/2025 8:15 AM EDT Procedure Pulmonary Lab [address] [place] [address] Dyspnea and respiratory abnormalities [R06.00, R06.89] 05/17/2025 8:30 AM EDT Office Visit Pulmonary Medicine [address] [place], [place] [id number] Dayanna Alatorre APRN.J2EE SOFTWARE ENGINEER [address] [facility] [place] [address] Return in about 1 month (around 05/17/2025). 06/10/2025 1:30 PM EDT Appointment Procedures [address] [place] [address] Debbie Gunn MD [address] [facility] [address] [place], [place] [address] 07/07/2025 9:00 AM [facility] Infusion Center Hematology/Oncolo gy [address] [place] [address] lab 07/14/2025 9:30 AM [facility] Hematology [address] [place] [address] Mitch Garcia MD [address] [place] [address] Schedule labs prior to Virtual visit with DR Garcia 07/15/2025 9:00 AM [facility] Hematology/Oncolo gy [address] [place] [address] Prolia injection day after RADHA virtual visit per staff message 08/23/2025 10:00 AM EST Office Visit Kidney Medicine [address] [place] [address] Shante Carroll APRN.J2EE SOFTWARE ENGINEER [address] [facility] [place] [address] 6 month follow up 11/01/2025 2:00 PM EDT Office Visit Rheumatology [address] [place] [address] Nany Bustillos MD [address] [facility] [place] [address] RA documented as of this encounter Visit Diagnoses Not on filedocumented in this encounter Care Teams Business Operations Manager Relationship Specialty Start Date End Date Sunny Jenkins MD PCP - General Internal Medicine 08/22/23 Janet Dillard DO Referring Family Medicine 07/14/21 Mtich Garcia MD [address] [facility] [place] [address] Physician Hematology/Oncology 09/23/23 Deepika Garcia LSW Plant Reliability Engineer 09/24/[address] [place] [address] [place] [address] Registered Dietitian Nutrition 10/22/23 Nia Snider, RN Specialty Carbon Paper Machine Operator Hematology/Oncology 04/22/24 documented as of this encounter
--- OUTSIDE RECORDS SUMMARY | 2025-04-19 08:33 | XMS_ITS | Encounter Summary ---
Author Organization [facility] Address [address] [place] [address] Care Team Providers Care Tank Storage Supervisor Name Role Phone Chris Amanda Primary Care Provider [phone] Janet Dillard DO Unavailable UnavailSunny Coates MD Primary Care Provider [phone] Yvonne Baumann RN Unavailable [phone] Mitch Garcia MD Unavailable [phone] Hilda TempletonC Unavailable [phone] Deepika Garcia Unavailable Unavailable Nona Lomax RD Unavailable [phone] Nia Snider RN Unavailable Unavailable Source Comments In the event this information is protected by the Federal Confidentiality of Alcohol and Drug AbusePatient Records regulations: The Federal rules restrict any use of the information to criminally investigate or prosecute any alcohol or drug abuse patient.[facility] Encounter Details Date Type Department Care Team (Late st Contact Info) Description 04/03/2022 Patient Msg Neurology [address] [place] [address] Lopez Salmon DO [address] [place] [address] [place] thyroid Social History Tobacco Use Types Packs/Day Years [...] care, and heating? Not hard at all 03/14/2022 PHQ-2 Answer Date Recorded PHQ2 Score 0 03/31/2018 Hunger Vital Sign Answer Date Recorded Within the past 12 months, y ou worried that your food would run out before you got the money to buy more. Never true 03/14/20 22 Within the past 12 months, t he food you bought just didn't last and you didn't have money to get more. Never true 03/14/2022 PRAPARE - Transportation Answer Date Re corded In the past 12 months, has l ack of transportation kept you from medical appointments or from getting medications? No 02/24 In the past 12 months, has l ack of transportation kept you from meetings, work, or from getting things needed for daily living? No 03/14/2022 Housing Stability Vital Sign Answer Rafa e Recorded In the last 12 months, was t here a time when you were not able to pay the mortgage or rent on time? No 03/14/2022 In the last 12 months, how many places have you lived? 1 03/14/2022 In the last 12 months, was t here a time when you did not have a steady place to sleep or slept in a long-term (including now)? No 03/14/2022 Area Deprivation Index Answer Date Joaquin rded National Score (1-100), lower number is lower ri sk 84 03/23/2022 State Score (1-10), lower number is lower risk N ot on file 03/23/2022 Data from: https://www.neighborhoodatlas.medicine.[facility].edu/. Last address used for calculation Armando You Avmichell 03/23/2022 Comments No Sex and Gender Information Value Date Recorded Sex Assigned at Female 08/14/2024 10:40 AM EST Legal Sex Female 8:08 AM EST Gender Identity Not on file Sexual Orientation Straight 08/14/2024 10 :40 AM EST COVID-19 Exposure Response Date Recorded In the last 10 days, have yo u been in contact with someone who was confirmed or suspected to have Coronavirus/COVID-19? No / Unsure 04/03/2022 12:20 PM EDT documented as of this encounter Functional Status * Are you deaf or do you have serious difficulty hearing? Answer Date of Assessment Author No 03/16/2022 3:33 PM EDT Michell Coffey RN * Are you blind or do you have serious difficulty seeing, even when wearing glasses? Answer Date of Assessment Author No 03/16/2022 3:33 PM EDT Michell Coffey RN * Do you have serious difficulty walking or climbing stairs? Answer Date of Assessment Author No 03/16/2022 3:33 PM Michell Ferrara RN * Do you have difficulty dressing or bathing? Answer Date of Assessment Author No 03/16/2022 3:33 PM EDMichell Zapata RN * Because of a physical, mental, or emotional condition, do you have difficulty doing errands alone such as visiting a doctor's office or shopping? Answer Date of Assessment Author No 03/16/2022 3:33 PM Michell Ferrara RN documented as of this encounter Mental Status * Because of a physical, mental, or emotional condition, do you have serious difficulty concentrating, remembering, or making decisions? Answer Entry Date Author No 03/16/2022 3:33 PM EDMichell Zapata RN documented in this encounter Plan of Treatment Upcoming Encounters Date Type Department Care Team (Late st Contact Info) Description 05/10/2025 7:15 AM EDT Specialty Pharmacy [facility] [address] [place] [address] Pharmacist, [facility] [address] [place] [address] Refill - Kisqali [28DS] C005/1705/17/2025 8:00 AM EDT Procedure Pulmonary Lab [address] [facility] [place] [address] Dyspnea and respiratory abnormalities [R06.00, R06.89] 05/17/2025 8:15 AM EDT Procedure Pulmonary Lab [address] [facility] [place] [address] Dyspnea and respiratory abnormalities [R06.00, R06.89] 05/17/2025 8:30 AM EDT Office Visit Pulmonary Medicine [address] [facility] [place] [address] Dayanna Alatorre APRN.THEATER TEACHER [address] [place] [address] Return in about 1 month (around 05/17/2025). 06/10/2025 1:30 PM EDT Appointment Procedures [address] [place] [address] Debbie Gunn MD [address] [facility] [facility] [address] 07/07/2025 9:00 AM [facility] Infusion Center Hematology/Oncolo gy [address] [facility] [place] [address] lab 07/14/2025 9:30 AM [facility] Hematology [address] [place] [address] Mitch Garcia MD [address] [place] [address] Schedule labs prior to Virtual visit with DR Garcia 07/15/2025 9:00 AM [facility] Infusion Center Hematology/Oncolo gy [address] [facility] [place] [address] Prolia injection day after RADHA virtual visit per staff message 08/23/2025 10:00 AM EST Office Visit Kidney Medicine [address] [place] [address] Shante Carroll APRN.THEATER TEACHER [address] [facility] [place] [address] 6 month follow up 11/01/2025 2:00 PM EDT Office Visit Rheumatology [address] [facility] [address] [place], [place] [address] Nany Bustillos MD [address] [facility] [place] [address] RA documented as of this encounter Visit Diagnoses Not on filedocumented in this encounter Care Teams Tank Storage Supervisor Relationship Specialty Start Date End Date Chris Amanda PCP - General 01/28/07 08/21/23 Sunny Jenkins MD PCP - General Internal Medicine 08/22/23 Janet Dillard DO Referring Family Medicine 07/14/21 Yvonne Baumann RN [address] [place] [address] [place] [address] Specialty Abap Developer Hematology/Oncology 09/23/23 04/21/24 Mitch Garcia MD [address] [place] [address] [place] [address] Physician Hematology/Oncology 09/23/23 Hilda Templeton, PA-C [address] [place] [address] [place] [address] Physician Wireless Sales Representative Hematology/Oncology 09/23/23 Deepika Garcia LSW Acting Teacher 09/24/[address] [place] [address] [place] [address] Registered Dietitian Nutrition 10/22/23 Nia Snider, MALORIE Specialty Abap Developer Hematology/Oncology 04/22/24 documented as of this encounter
--- OUTSIDE RECORDS SUMMARY | 2025-04-19 08:33 | XMS_ITS | Encounter Summary ---
Author Organization [facility] Address [address] [place] [address] Care Team Providers Care Case Folder Name Role Phone Janet Dillard DO Unavailable Unavailabl Sunny Stone MD Primary Care Provider [phone] Yvonne Baumann RN Unavailable [phone] Mitch Garcia MD Unavailable [phone] Hilda TempletonC Unavailable [phone] Deepika Garcia Unavailable Unavailable Nona Lomax RD Unavailable [phone] Nia Snider RN Unavailable Unavailable Source Comments In the event this information is protected by the Federal Confidentiality of Alcohol and Drug AbusePatient Records regulations: The Federal rules restrict any use of the information to criminally investigate or prosecute any alcohol or drug abuse patient.[facility] Encounter Details Date Type Department Care Team (Latest Contact Info) Description 11/06/2023 H&P External-NonCCF Provider, External, PA-C Do not [...] place to sleep or slept in a fci (including now)? No 07/30/2023 Area Deprivation Index [...] AM EDT Specialty Pharmacy [facility] [address] [place], [place] 683364-[address] [place] [address] Pharmacist, [facility] [address] [place] [address] [id number] Refill - Kisqali [28DS] C005/1705/17/2025 8:00 AM EDT Procedure Pulmonary Lab [address] [place] [address] Dyspnea and respiratory abnormalities [R06.00, R06.89] 05/17/2025 8:15 AM EDT Procedure Pulmonary Lab [address] [place] [address] Dyspnea and respiratory abnormalities [R06.00, R06.89] 05/17/2025 8:30 AM EDT Office Visit Pulmonary Medicine [address] [place] [address] Dayanna Alatorre, PARKING ENFORCEMENT SPECIALIST.LABORER POLE CREW [address] [place] [address] Return in about 1 month (around 05/17/2025). 06/10/2025 1:30 PM EDT Appointment Procedures [address] [place] [address] Debbie Gunn MD [address] [facility] [address] [place], [place] [address] 415- 07/07/2025 9:00 AM [facility] Infusion Center Hematology/Oncolo gy [address] [place] [address] lab 07/14/2025 9:30 AM [facility] Hematology [address] [place] [address] Mitch Garcia MD [address] [place] [address] Schedule labs prior to Virtual visit with DR Garcia 07/15/2025 9:00 AM [facility] Hematology/Oncolo gy [address] [facility] [place] [address] Prolia injection day after RADHA virtual visit per staff message 08/23/2025 10:00 AM EST Office Visit Kidney Medicine [address] [place] [address] Shante Carroll, PARKING ENFORCEMENT SPECIALIST.LABORER POLE CREW [address] [facility] [place] [address] 6 month follow up 11/01/2025 2:00 PM EDT Office Visit Rheumatology [address] [place] [address] Nany Bustillos MD [address] [place] [address] RA documented as of this encounter Visit Diagnoses Not on filedocumented in this encounter Care Teams Case Folder Relationship Specialty Start Date End Date Sunny Jenkins MD PCP - General Internal Medicine 08/22/23 Janet Dillard DO Referring Family Medicine 07/14/21 Yvonne Baumann RN [address] [place] [address] [place] [address] Specialty Blow Mold Technician Hematology/Oncology 09/23/23 04/21/24 Mitch Garcia MD [address] [place] [address] [place] [address] Physician Hematology/Oncology 09/23/23 Hilda Templeton PALeonelC [address] [place] [address] [place] [address] Physician Certified Pharmacy Tech Hematology/Oncology 09/23/23 Deepika Garcia LSW Oral And Maxillofacial Surgery Resident 09/24/[address] [place] [address] [place] [address] Registered Dietitian Nutrition 10/22/23 Nia Snider, MALORIE Specialty Blow Mold Technician Hematology/Oncology 04/22/24 documented as of this encounter
--- OUTSIDE RECORDS SUMMARY | 2025-04-19 08:33 | XMS_ITS | Clinical Summary ---
Author Organization [facility] Address [address] [place] [address] Phone Care Team Providers Care Professional Athlete Name Role Phone Unavailable Primary Care Provider Unavailabl e Social History Tobacco Use Types Packs/Day Years Used Date Smoking Tobacco: Never Assessed Comments Unknown Sex and Gender Information Value Date Recorded Sex Assigned at Not on file Legal Sex Female 9:52 AM EST Gender Identity Not on file Sexual Orientation Not on file Plan of Treatment Health Maintenance Due Date Last Done Comments CT Colonography 1954 Colonoscopy 1954 Colorectal Cancer Screening 1954 FIT-DNA (Cologuard) 1954 FIT 1954 Lipid Panel 1954 Sigmoidoscopy 1954 Yearly Adult Physical 1954 MMR Vaccines (1 of 1 - Stand jen series) 11/04/1955 Hepatitis C Screening 1972 DTaP/Tdap/Td Vaccines (1 - Tdap) 1976 Mammogram 1994 Pneumococcal Vaccine (1 of 1 - PCV) 2004 Zoster Vaccines (1 of 2) 2004 Bone Density Scan 11/04/2019 COVID-19 Vaccine (1 - 2023-2 5 season) 2024 Influenza Vaccine (#1) 2025 RSV High Risk: (Elderly (60+ ) or Population) (1 - 1-dose 75+ series) 2029 HIB Vaccines Aged Out No longer eligi ble based on patient's age to complete this topic HPV Vaccines Aged Out No longer eligi ble based on patient's age to complete this topic Hepatitis A Vaccines Aged Out No long er eligible based on patient's age to complete this topic Hepatitis B Vaccines Aged Out No long er eligible based on patient's age to complete this topic IPV Vaccines Aged Out No longer eligi ble based on patient's age to complete this topic Meningococcal Vaccine Aged Out No pravin daniela eligible based on patient's age to complete this topic Rotavirus Vaccines Aged Out No longer eligible based on patient's age to complete this topic
--- OUTSIDE RECORDS SUMMARY | 2025-04-19 08:33 | XMS_ITS | Encounter Summary ---
Author Organization [facility] Address [address] [place] [address] Phone Care Team Providers Care Care Clinician Name Role Phone Unavailable Primary Care Provider Unavailabl e Encounter Details Date Type Department Care Team (Late st Contact Info) Description 03/16/2022 Orders Only [facility] [address] [place] [address] Conversion, Onbase Social History Tobacco Use Types Packs/Day Years Used Date Smoking Tobacco: Never Assessed Comments Unknown Sex and Gender Information Value Date Recorded Sex Assigned at Not on file Legal Sex Female 9:52 AM EST Gender Identity Not on file Sexual Orientation Not on file documented as of this encounter Plan of Treatment Scheduled Orders Name Type Priority Associated Diagnoses Orde r Schedule OUTSIDE LAB SCAN Lab Ordered: 03/16/2022 documented as of this encounter Visit Diagnoses Not on filedocumented in this encounter
--- OUTSIDE RECORDS SUMMARY | 2025-04-19 08:33 | XMS_ITS | Encounter Summary ---
Author Organization [facility] Address [address] [place] [address] Care Team Providers Care Reclamation Worker Name Role Phone Janet Dillard DO Unavailable Unavailabl Sunny Stone MD Primary Care Provider [phone] Mitch Garcia MD Unavailable [phone] Deepika Garcia OUTPATIENT COORDINATOR Unavailable Unavailable Nona Lomax RD Unavailable [phone] Nia Snider RN Unavailable Unavailable Source Comments In the event this information is protected by the Federal Confidentiality of Alcohol and Drug AbusePatient Records regulations: The Federal rules restrict any use of the information to criminally investigate or prosecute any alcohol or drug abuse patient.[facility] Encounter Details Date Type Department Care Team (Late st Contact Info) Description 09/08/2024 Get Medical Advice Hematology [address] [facility] [place] [address] Mitch Garcia MD [address] [place] [address] Called to jury duty Social History Tobacco Use Types Packs/Day Years [...] PHQ-2 Answer Date Recorded PHQ-2 score 0 06/01/2024 Hunger Vital Sign Answer Date Recorded Within [...] is lower risk 9 01/29/2023 Data from: https://www.neighborhoodatlas.medicine.[facility].edu/. Last address used for calculation Armando Mayen [...] AM EDT Specialty Pharmacy [facility] [address] [place], [place] [address]-[address] [place] [address] Pharmacist, [facility] [address] [place] [address] Refill - Kisqali [28DS] C005/1705/17/2025 8:00 AM EDT Procedure Pulmonary Lab [address] [place] [address] Dyspnea and respiratory abnormalities [R06.00, R06.89] 05/17/2025 8:15 AM EDT Procedure Pulmonary Lab [address] [place] [address] Dyspnea and respiratory abnormalities [R06.00, R06.89] 05/17/2025 8:30 AM EDT Office Visit Pulmonary Medicine [address] [facility] [place] [place] [address] Dayanna Alatorre, TELLER.ABALONE DIVER [address] [facility] [place] [place] [address] Return in about 1 month (around 05/17/2025). 06/10/2025 1:30 PM EDT Appointment Procedures [address] [place] [address] Debbie Gunn MD [address] [facility] [place] [address] 07/07/2025 9:00 AM [facility] Infusion Center Hematology/Oncolo gy [address] [facility] [address] [place] [address] lab 07/14/2025 9:30 AM EST [facility] Hematology [address] [place] [address] Mitch Garcia MD [address] [place] [address] Schedule labs prior to Virtual visit with DR Garcia 07/15/2025 9:00 AM [facility] Hematology/Oncolo gy [address] [facility] [address] [place] [address] Prolia injection day after RADHA virtual visit per staff message 08/23/2025 10:00 AM EST Office Visit Kidney Medicine [address] [place] [address] Shante Carroll, TELLER.ABALONE DIVER [address] [facility] [place] [address] 6 month follow up 11/01/2025 2:00 PM EDT Office Visit Rheumatology [address] [facility] [place], [place] [id number] Nany Bustillos MD [address] [facility] [place] [address] RA documented as of this encounter Visit Diagnoses Not on filedocumented in this encounter Care Teams Reclamation Worker Relationship Specialty Start Date End Date Sunny Jenkins MD PCP - General Internal Medicine 08/22/23 Janet Dillard DO Referring Family Medicine 07/14/21 Mitch Garcia MD [address] [facility] [place] [address] Physician Hematology/Oncology 09/23/23 Deepika Garcia LSW Sweatband Perforator 09/24/[address] [facility] [place] [address] Registered Dietitian Nutrition 10/22/23 Nia Snider, RN Specialty Karate Teacher Hematology/Oncology 04/22/24 documented as of this encounter
--- OUTSIDE RECORDS SUMMARY | 2025-04-19 08:33 | XMS_ITS | Encounter Summary ---
Author Organization [facility] Address [address] [place] [address] Care Team Providers Care Retort Condenser Attendant Name Role Phone Janet Dillard DO Unavailable Unavailabl Sunny Stone MD Primary Care Provider [phone] Mitch Garcia MD Unavailable [phone] Deepika Garcia Unavailable Unavailable Nona Lomax RD Unavailable [phone] Nia Snider RN Unavailable Unavailable Source Comments In the event this information is protected by the Federal Confidentiality of Alcohol and Drug AbusePatient Records regulations: The Federal rules restrict any use of the information to criminally investigate or prosecute any alcohol or drug abuse patient.[facility] Encounter Details Date Type Department Care Team (Late st Contact Info) Description 08/12/2024 Patient Msg Nuclear Medicine [address] [place] [address] Provider, [facility]cf Scheduling Social History Tobacco Use Types Packs/Day Years [...] place to sleep or slept in a nursing home (including now)? No 07/30/2023 Area Deprivation Index Answer Date Joaquin rded National Score (1-100), lower number is lower ri sk 92 01/29/2023 State Score (1-10), lower number is lower risk 9 01/29/2023 Data from: https://www.neighborhoodatlas.medicine.[facility].edu/. Last address used for calculation Armando [...] Author No 09/05/2023 8:47 AM EST Belle Xiong, RN * Are you blind or do [...] AM EDT Specialty Pharmacy [facility] [address] [place] [address] Drive [address] [place] [address] Pharmacist, [facility] [address] [place] [address] Refill - Kisqali [28DS] C005/1705/17/2025 8:00 AM EDT Procedure Pulmonary Lab 5700 [place] [address] Dyspnea and respiratory abnormalities [R06.00, R06.89] 05/17/2025 8:15 AM EDT Procedure Pulmonary Lab 5700 [place] [address] Dyspnea and respiratory abnormalities [R06.00, R06.89] 05/17/2025 8:30 AM EDT Office Visit Pulmonary Medicine 57[address] [place] [address] Dayanna Alatorre APRN.BODY MAKE UP ARTIST [address] [place] [address] Return in about 1 month (around 05/17/2025). 06/10/2025 1:30 PM EDT Appointment Procedures [address] [place] [address] Debbie Gunn MD [address] [facility] [address] 07/07/2025 9:00 AM [facility] Infusion Center Hematology/Oncolo gy [address] [place] [address] lab 07/14/2025 9:[address] [facility] Hematology [address] [place] [address] Mitch Garcia MD 417 [place] [address] Schedule labs prior to Virtual visit with DR Garcia 07/15/2025 9:00 AM [facility] Infusion Center Hematology/Oncolo gy [address] [facility] [place] [address] Prolia injection day after RADHA virtual visit per staff message 08/23/2025 10:00 AM EST Office Visit Kidney Medicine [address] [place] [address] Shante Carroll APRN.BODY MAKE UP ARTIST [address] [facility] [address] 6 month follow up 11/01/2025 2:00 PM EDT Office Visit Rheumatology 5700 [facility] [place] [address] Nany Bustillos MD [address]00 [place] [address] RA documented as of this encounter Visit Diagnoses Not on filedocumented in this encounter Care Teams Retort Condenser Attendant Relationship Specialty Start Date End Date Sunny Jenkins MD PCP - General Internal Medicine 08/22/23 Janet Dillard DO Referring Family Medicine 07/14/21 Mitch Garcia MD [address] [facility] [place] [address] Physician Hematology/Oncology 09/23/23 Deepika Garcia LSW Technician Test Systems 09/24/[address] [place] [address] [place] [address] Registered Dietitian Nutrition 10/22/23 Nia Snider, MALORIE Specialty Occupational Therapy Asst Hematology/Oncology 04/22/24 documented as of this encounter
--- OUTSIDE RECORDS SUMMARY | 2025-04-19 08:33 | XMS_ITS | Encounter Summary ---
Author Organization [facility] Address [address] [place] [address] Care Team Providers Care Surveyor Mine Name Role Phone Janet Dillard DO Unavailable Unavailabl Sunny Stone MD Primary Care Provider [phone] Mitch Garcia MD Unavailable [phone] Deepika Garcia Unavailable Unavailable Nona Lomax RD Unavailable [phone] Nia Snider RN Unavailable Unavailable Source Comments In the event this information is protected by the Federal Confidentiality of Alcohol and Drug AbusePatient Records regulations: The Federal rules restrict any use of the information to criminally investigate or prosecute any alcohol or drug abuse patient.[facility] Encounter Details Date Type Department Care Team (Late st Contact Info) Description 01/06/2025 Patient [facility] HB-3 [address] [place] [address] Jackelyn Grover RPh At your next appointment, choose [facility]. Social History Tobacco Use Types Packs/Day [...] place to sleep or slept in a usp (including now)? No 07/30/2023 Area Deprivation Index Answer Date Joaquin rded National Score (1-100), lower number is lower ri sk 92 01/29/2023 State Score (1-10), lower number is lower risk 9 01/29/2023 Data from: https://www.neighborhoodatlas.medicine.[facility].edu/. Last address used for calculation Armando [...] AM EDT Specialty Pharmacy [facility] [address] [place], [place] 331904-[address] [place] [address] Pharmacist, [facility] [address] [place] [address] Refill - Kisqali [28DS] C005/1705/17/2025 8:00 AM EDT Procedure Pulmonary Lab [address] [place] [address] Dyspnea and respiratory abnormalities [R06.00, R06.89] 05/17/2025 8:15 AM EDT Procedure Pulmonary Lab [address] [place] [address] Dyspnea and respiratory abnormalities [R06.00, R06.89] 05/17/2025 8:30 AM EDT Office Visit Pulmonary Medicine [address] [place], [place] [id number] Dayanna Alatorre APRN.DREDGE MATE [address] [facility] [place] [address] Return in about 1 month (around 05/17/2025). 06/10/2025 1:30 PM EDT Appointment Procedures [address] [place] [address] Debbie Gunn MD [address] [facility] [address] [place], [place] [address] 07/07/2025 9:00 AM [facility] Infusion Center Hematology/Oncolo gy [address] [facility] [place] [address] lab 07/14/2025 9:30 AM [facility] Hematology [address] [place] [address] Mitch Garcia MD [address] [place] [address] Schedule labs prior to Virtual visit with DR Gacria 07/15/2025 9:00 AM [facility] Center Hematology/Oncolo gy [address] [facility] [address] Prolia injection day after RADHA virtual visit per staff message 08/23/2025 10:00 AM EST Office Visit Kidney Medicine [address] [place] [address] Shante Carroll APRN.DREDGE MATE [address] [facility] [place] [address] 6 month follow up 11/01/2025 2:00 PM EDT Office Visit Rheumatology 5700 [facility] [place] [address] Nany Bustillos MD [address] [facility] [place] [address] RA documented as of this encounter Visit Diagnoses Not on filedocumented in this encounter Care Teams Surveyor Mine Relationship Specialty Start Date End Date Sunny Jenkins MD PCP - General Internal Medicine 08/22/23 Janet Dillard DO Referring Family Medicine 07/14/21 Mitch Garcia MD [address] [facility] [place] [address] Physician Hematology/Oncology 09/23/23 Deepika Garcia LSW Collection Systems Consultant 09/24/[address] [place] [address] [place] [address] Registered Dietitian Nutrition 10/22/23 Nia Snider, RN Specialty Quality Director Hematology/Oncology 04/22/24 documented as of this encounter
--- OUTSIDE RECORDS SUMMARY | 2025-04-19 08:33 | XMS_ITS | Encounter Summary ---
Author Organization [facility] Address [address] [place] [address] Care Team Providers Care Psychologist Chief Name Role Phone Janet Dillard DO Unavailable Unavailabl Sunny Stone MD Primary Care Provider [phone] Mitch Garcia MD Unavailable [phone] Deepika Garcia Unavailable Unavailable Nona Lomax RD Unavailable Nia Snider RN Unavailable Unavailable Source Comments In the event this information is protected by the Federal Confidentiality of Alcohol and Drug AbusePatient Records regulations: The Federal rules restrict any use of the information to criminally investigate or prosecute any alcohol or drug abuse patient.[facility] Encounter Details Date Type Department Care Team (Late st Contact Info) Description 09/01/2024 Patient Msg Hematology [address] [place] [address] Provider, Ccf Hilariosqali plan Social History Tobacco Use Types Packs/Day Years [...] place to sleep or slept in a detention (including now)? No 07/30/2023 Area Deprivation Index Answer Date Joaquin rded National Score (1-100), lower number is lower ri sk 92 01/29/2023 State Score (1-10), lower number is lower risk 9 01/29/2023 Data from: https://www.neighborhoodatlas.medicine.[facility].edu/. Last address used for calculation Armando You Avmichell 01/29/2023 Comments No Sex and Gender Information [...] AM EDT Specialty Pharmacy [facility] [address] [place] [address] Drive 4[address] [place] [address] Pharmacist, [facility] [address] [place] [address] Refill - Kisqali [28DS] C005/1705/17/2025 8:00 AM EDT Procedure Pulmonary Lab 5700 [place] [address] Dyspnea and respiratory abnormalities [R06.00, R06.89] 05/17/2025 8:15 AM EDT Procedure Pulmonary Lab 5700 [place] [address] Dyspnea and respiratory abnormalities [R06.00, R06.89] 05/17/2025 8:30 AM EDT Office Visit Pulmonary Medicine [address] [place] [address] Dayanna Alatorre APRN.INDUSTRIAL TECHNOLOGY EDUCATION TEACHER 5700 [place] [address] Return in about 1 month (around 05/17/2025). 06/10/2025 1:30 PM EDT Appointment Procedures [address] [place] [address] Debbie Gunn MD [address] [place] [address] 07/07/2025 9:00 AM [facility] Hematology/Oncolo gy [address] [place] [place] [address] lab 07/14/2025 9:[address] [facility] Hematology [address] [place] [address] Mitch Garcia MD 417 [place] [address] Schedule labs prior to Virtual visit with DR Garcia 07/15/2025 9:00 AM [facility] Hematology/Oncolo gy [address] [place] [address] Prolia injection day after RADHA virtual visit per staff message 08/23/2025 10:00 AM EST Office Visit Kidney Medicine [address] [place] [address] Shante Carroll APRN.INDUSTRIAL TECHNOLOGY EDUCATION TEACHER [address] [facility] [place] [address] 6 month follow up 11/01/2025 2:00 PM EDT Office Visit Rheumatology 5700 [place], [place] 454[address]53 Nany Bustillos MD 5700 [place], [place] 8265853 RA documented as of this encounter Visit Diagnoses Not on filedocumented in this encounter Care Teams Psychologist Chief Relationship Specialty Start Date End Date Sunny Jenkins MD PCP - General Internal Medicine 08/22/23 Janet Dillard DO Referring Family Medicine 07/14/21 Mitch Garcia MD [address] [facility] [place] [address] Physician Hematology/Oncology 09/23/23 Deepika Garcia LSW Deputy Insurance Commissioner 09/24/[address] [place] [address] [place] [address] Registered Dietitian Nutrition 10/22/23 Nia Snider, MALORIE Specialty Travel Rn Or Hematology/Oncology 04/22/24 documented as of this encounter
--- OUTSIDE RECORDS SUMMARY | 2025-04-19 08:33 | XMS_ITS | Encounter Summary ---
Author Organization [facility] Address [address] [place] [address] Care Team Providers Care Donor Services Manager Name Role Phone Janet Dillard DO Unavailable Unavailabl Sunny Stone MD Primary Care Provider [phone] Mitch Garcia MD Unavailable Deepika Garcia Unavailable Unavailable Nona Lomax RD Unavailable [phone] Nia Snider RN Unavailable Unavailable Source Comments In the event this information is protected by the Federal Confidentiality of Alcohol and Drug AbusePatient Records regulations: The Federal rules restrict any use of the information to criminally investigate or prosecute any alcohol or drug abuse patient.[facility] Reason for Visit * Reason Comments Radiology Pre Procedure Instructions Encounter Details Date Type Department Care Team (Late st Contact Info) Description 08/24/2024 Telephone [facility] [address] [place] [address] Kishan Barrios, aviation engineer Pre Procedure Instructions Social History Tobacco Use Types Packs/Day Years [...] place to sleep or slept in a custodial (including now)? No 07/30/2023 Area Deprivation Index Answer Date Joaquin rded National Score (1-100), lower number is lower ri sk 92 01/29/2023 State Score (1-10), lower number is lower risk 9 01/29/2023 Data from: https://www.neighborhoodatlas.medicine.[facility].edu/. Last address used for calculation Armando Mayen [...] Belle Sandoval RN documented in this encounter Miscellaneous Notes * Telephone Encounter - Kishan Barrios RN - 08/24/2024 9:06 AM EST You are scheduled for a Thyroid Biopsy, On 09/01/24. You are to arrive at 1130 am and Report to [facility] First Floor Radiology Registration Desk. You can expect to be here for 4-8 hours. Diet: You may eat. Medications: Ok to take your cardiac, blood pressure, anti-seizure, and chronic pain medications with a sip of water, please take prior to arrival. Bring your current medication list. Labs: Lab-work needs to be drawn? No.. Molder Shoulder Pad/Transportation: How will you be arriving for your procedure? Private car. You will need a responsible adult to accompany you to and from the procedure. Your armored car driver is required to stay with you until you are taken into the procedure room. Questions: [phone] documented in this encounter Plan of Treatment Upcoming Encounters Date Type Department Care Team (Late st Contact Info) Description 05/10/2025 7:15 AM EDT Specialty Pharmacy [facility] [address] [facility] [address] [place] [address] Pharmacist, [facility] [address] [place] [address] [place] [id number] Refill - Kisqali [28DS] C005/1705/17/2025 8:00 AM EDT Procedure Pulmonary Lab 5700 [facility] [place] [address] Dyspnea and respiratory abnormalities [R06.00, R06.89] 05/17/2025 8:15 AM EDT Procedure Pulmonary Lab [address]00 [place] [address] Dyspnea and respiratory abnormalities [R06.00, R06.89] 05/17/2025 8:30 AM EDT Office Visit Pulmonary Medicine 5700 [facility] [place] [address] Dayanna Alatorre APRN.LAST SAWYER [address] [place] [address] Return in about 1 month (around 05/17/2025). 06/10/2025 1:30 PM EDT Appointment Procedures [address] [place] [address] Debbie Gunn MD [address] [facility] [place] [address] 07/07/2025 9:00 AM EST Infusion Center Hematology/Oncolo gy [address] [address] lab 07/14/2025 9:30 AM EST [facility] H[facility] [address] [place] [address] Mitch Garcia MD 417 [place] [address] Schedule labs prior to Virtual visit with DR Garcia 07/15/2025 9:00 AM EST Infusion Center Hematology/Oncolo gy [address] [place] [address] Prolia injection day after RADHA virtual visit per staff message 08/23/2025 10:00 AM EST Office Visit Kidney Medicine [address] [facility] [place] [address] Shante Carroll APRN.LAST SAWYER [address] [facility] [place] [address] 6 month follow up 11/01/2025 2:00 PM EDT Office Visit Rheumatology 5700 [facility] [place] [address] Nany Bustillos MD 5700 [facility] [place] [address] RA documented as of this encounter Visit Diagnoses Not on filedocumented in this encounter Care Teams Donor Services Manager Relationship Specialty Start Date End Date Sunny Jenkins MD PCP - General Internal Medicine 08/22/23 Janet Dillard DO Referring Family Medicine 07/14/21 Mitch Garcia MD [address] [place] [address] [place] [address] Physician Hematology/Oncology 09/23/23 Deepika Garcia LSW Gambreler 09/24/[address] [place] [address] [place] [address] Registered Dietitian Nutrition 10/22/23 Nia Snider, RN Specialty Director Of Sports Performance Hematology/Oncology 04/22/24 documented as of this encounter
--- OUTSIDE RECORDS SUMMARY | 2025-04-19 08:34 | XMS_ITS | Encounter Summary ---
Author Organization [facility] Address [address] [place] [address] Care Team Providers Care Services Executive Name Role Phone Janet Dillard DO Primary Care Provider Janet Dillard DO Unavailable [phone] Unallocated, Noms Provider MD Primary Care Provi gaurang Janet Dillard DO Unavailable [phone] Encounter Details Date Type Department Care Team (Late st Contact Info) Description 03/01/2023 Abstract [facility] Family Medicine [address] [place] [address] Janet Dillard DO [address] [phone] Social History Tobacco Use Types Packs/Day Years Used Date Smoking Tobacco: Never Smokeless Tobacco: Never Comments Unknown Sex and Gender Information Value Date Recorded Sex Assigned at Not on file Legal Sex Female 7:36 PM EDT Gender Identity Not on file Sexual Orientation Not on file documented as of this encounter Plan of Treatment Not on file documented as of this encounter Visit Diagnoses Not on filedocumented in this encounter Care Teams Services Executive Relationship Specialty Start Date End Date Janet Dillard DO PCP - General Family Medicine 01/16/23 04/02/23 Janet Dillard DO 17[address] [facility] [address] [place] [phone] PCP - ACO Reach 01/17/23 10/01/24 Unallocated, Noms Provider, [place] [address] PCP - General 04/03/23 Janet Dillard, 1715 [facility] [address] [place] [address] PCP - ACO Reach 10/09/24 11/26/24 documented as of this encounter
--- OUTSIDE RECORDS SUMMARY | 2025-04-19 08:34 | XMS_ITS | Encounter Summary ---
Author Organization [facility] Address [address] [place] [address] Care Team Providers Care Global Sourcing Manager Name Role Phone Janet Dillard DO Unavailable Unavailabl Sunny Stone MD Primary Care Provider [phone] Yvonne Baumann RN Unavailable [phone] Mitch Garcia MD Unavailable [phone] Hilda Templeton PA-C Unavailable [phone] Deepika Garcia ACCESS SERVICE REPRESENTATIVE Unavailable Unavailable Nona Lomax RD Unavailable [phone] Nia Snider RN Unavailable Unavailable Source Comments In the event this information is protected by the Federal Confidentiality of Alcohol and Drug AbusePatient Records regulations: The Federal rules restrict any use of the information to criminally investigate or prosecute any alcohol or drug abuse patient.[facility] Encounter Details Date Type Department Care Team (Late st Contact Info) Description 03/04/2024 Patient Msg Hematology [address] [place] [address] Provider, Ccf Schedule Hematology Appointments Social History Tobacco Use Types Packs/Day Years [...] PHQ-2 Answer Date Recorded PHQ-2 score 0 03/02/2024 Hunger Vital Sign Answer Date Recorded Within [...] place to sleep or slept in a intermediate (including now)? No 07/30/2023 Area Deprivation Index Answer Date Joaquin rded National Score (1-100), lower number is lower ri sk 92 01/29/2023 State Score (1-10), lower number is lower risk 9 01/29/2023 Data from: https://www.neighborhoodatlas.medicine.[facility].edu/. Last address used for calculation Armando [...] AM EDT Specialty Pharmacy [facility] [address] [place], [place] [address]-b-100 [place] [address] Pharmacist, Specialty[facility] [address] [place] [address] Refill - Kisqali [28DS] C005/1705/17/2025 8:00 AM EDT Procedure Pulmonary Lab [address] [facility] [place] [address] Dyspnea and respiratory abnormalities [R06.00, R06.89] 05/17/2025 8:15 AM EDT Procedure Pulmonary Lab [address] [facility] [place] [address] Dyspnea and respiratory abnormalities [R06.00, R06.89] 05/17/2025 8:30 AM EDT Office Visit Pulmonary Medicine 5700 [facility] [place] [place] [address] Dayanna Alatorre, BLASTING COAL MINER.MICROFICHE DUPLICATOR 57[address] [facility] [place] [place] [address] Return in about 1 month (around 05/17/2025). 06/10/2025 1:30 PM EDT Appointment Procedures [address] [place] [address] Debbie Gunn MD [address] [facility] [address] [place], [place] [address] 07/07/2025 9:00 AM [facility] Hematology/Oncolo gy [address] [facility] [address] lab 07/14/2025 9:30 AM EST [facility] Hematology [address] [place] [address] Mitch Garcia MD [address] [place] [address] Schedule labs prior to Virtual visit with DR Garcia 07/15/2025 9:[address] [facility] Center Hematology/Oncolo gy [address] [facility] [address] Prolia injection day after RADHA virtual visit per staff message 08/23/2025 10:00 AM EST Office Visit Kidney Medicine [address] [place] [address] Shante Carroll, BLASTING COAL MINER.MICROFICHE DUPLICATOR [address] [facility] [place] [address] 6 month follow up 11/01/2025 2:00 PM EDT Office Visit Rheumatology 5700 [facility] [place], [place] [address] Nany Bustillos MD 5700 [facility] [address] RA documented as of this encounter Visit Diagnoses Not on filedocumented in this encounter Care Teams Global Sourcing Manager Relationship Specialty Start Date End Date Sunny Jenkins MD PCP - General Internal Medicine 08/22/23 Janet Dillard DO Referring Family Medicine 07/14/21 Yvonne Baumann RN [address] [place] [address] [place] [address] Specialty Vacuum Applicator Operator Hematology/Oncology 09/23/23 04/21/24 Mitch Garcia MD [address] [place] [address] [place] [address] Physician Hematology/Oncology 09/23/23 Hilda Templeton, PA-C [address] [place] [address] [place] [address] Physician Joss House Keeper Hematology/Oncology 09/23/23 Deepika Garcia LSW Fish Housekeeper 09/24/[address] [place] [address] [place] [address] Registered Dietitian Nutrition 10/22/23 Nia Snider, RN Specialty Vacuum Applicator Operator Hematology/Oncology 04/22/24 documented as of this encounter
--- OUTSIDE RECORDS SUMMARY | 2025-04-19 08:34 | XMS_ITS | Encounter Summary ---
Author Organization [facility] Address [address] [place] [address] Care Team Providers Care Fighting Vehicle Infantryman Name Role Phone Chris Amanda Primary Care Provider [phone] Janet Dillard DO Unavailable UnavailSunny Coates MD Primary Care Provider [phone] Yvonne Baumann RN Unavailable [phone] Mitch Garcia MD Unavailable [phone] Hilda TempletonC Unavailable [phone] Deepika Garcia Unavailable Unavailable Nona Lomax RD Unavailable [phone] Nia Snider RN Unavailable Unavailable Source Comments In the event this information is protected by the Federal Confidentiality of Alcohol and Drug AbusePatient Records regulations: The Federal rules restrict any use of the information to criminally investigate or prosecute any alcohol or drug abuse patient.[facility] Encounter Details Date Type Department Care Team (Late st Contact Info) Description 05/22/2016 Patient Msg Medical Records [address] [place] [address] Provider, [facility] Procedure Social History Tobacco Use Types Packs/Day Years Used Date Smoking Tobacco: Never Alcohol Use Standard Drinks/Week Comments No 0 (1 standard drink = 0.6 oz pur e alcohol) socially Comments No Sex and Gender Information Value Date Recorded Sex Assigned at Female 08/14/2024 10:40 AM EST Legal Sex Female 8:08 AM EST Gender Identity Not on file Sexual Orientation Straight 08/14/2024 10 :40 AM EST documented as of this encounter Plan of Treatment Upcoming Encounters Date Type Department Care Team (Late st Contact Info) Description 05/10/2025 7:15 AM EDT Specialty Pharmacy [facility] [address] [place] [address] Pharmacist, [facility] [address] [place] [address] [address] [place] [id number] Refill - Kisqali [28DS] C005/1705/17/2025 8:00 AM EDT Procedure Pulmonary Lab [address] [place] [address] Dyspnea and respiratory abnormalities [R06.00, R06.89] 05/17/2025 8:15 AM EDT Procedure Pulmonary Lab [address] [facility] [place] [address] Dyspnea and respiratory abnormalities [R06.00, R06.89] 05/17/2025 8:30 AM EDT Office Visit Pulmonary Medicine [address] [place] [address] Dayanna Alatorre APRN.SWAT TEAM MEMBER [address] [place] [address] Return in about 1 month (around 05/17/2025). 06/10/2025 1:30 PM EDT Appointment Procedures [address] [facility] [place] [address] Debbie Gunn MD [address] [place], [place] [id number] 07/07/2025 9:00 AM EST Infusion Center Hematology/Oncolo gy [address] [place] [address] [place] [address] lab 07/14/2025 9:30 AM EST [facility] Hematology [address] [place] [address] Mitch Garcia MD [address] [facility] [address] Schedule labs prior to Virtual visit with DR Garcia 07/15/2025 9:00 AM EST Infusion Center Hematology/Oncolo gy [address] [place] [address] [place] [address] Prolia injection day after RADHA virtual visit per staff message 08/23/2025 10:00 AM EST Office Visit Kidney Medicine [address] [place] [address] Shante Carroll APRN.SWAT TEAM MEMBER [address] [facility] [place] [address] 6 month follow up 11/01/2025 2:00 PM EDT Office Visit Rheumatology [address] [place] [address] Nany Bustillos MD [address] [place] [address] RA documented as of this encounter Visit Diagnoses Not on filedocumented in this encounter Additional Health Concerns Infection Onset Date Last Indicated Resolved Time COVID-19 Rule-Out 03/14/2022 03/14/2022 03/14/2022 4:49 PM EDT documented as of this encounter Care Teams Fighting Vehicle Infantryman Relationship Specialty Start Date End Date Chris Amanda PCP - General 01/28/07 08/21/23 Sunny Jenkins MD PCP - General Internal Medicine 08/22/23 Janet Dillard DO Referring Family Medicine 07/14/21 Yvonne Baumann RN [address] [place] [address] [place] [address] Specialty Combination Presser Hematology/Oncology 09/23/23 04/21/24 Mitch Garcia MD [address] [place] [address] [place] [address] Physician Hematology/Oncology 09/23/23 Hilda Templeton, PA-C [address] [place] [address] [place] [address] Physician Photograph Developer Hematology/Oncology 09/23/23 Deepika Garcia LSW Grease Maker Head 09/24/[address] [place] [address] [place] [address] Registered Dietitian Nutrition 10/22/23 Nia Snider, MALORIE Specialty Combination Presser Hematology/Oncology 04/22/24 documented as of this encounter
--- OUTSIDE RECORDS SUMMARY | 2025-04-19 08:34 | XMS_ITS ---
Author Organization [facility] Address [address] [place] [address] Care Team Providers Care Front Desk Manager Name Role Phone Janet Dillard DO Unavailable UnavailSunny Coates MD Primary Care Provider [phone] Mitch Garcia MD Unavailable Deepika Garcia Unavailable Unavailable Nona Lomax RD Unavailable [phone] Nia Snider RN Unavailable Unavailable Active Problems * This document contains information received from the source organization and may not represent a complete record from that organization. Problem Noted Date Diagnosed Date Osteopenia 04/13/2025 Status post cataract surgery, right 06/18/2024 Status post cataract surgery, left 06/09/2024 Combined forms of age-related cataract of right eye 06/09/2024 Multiple thyroid nodules 05/18/2024 Assessment & Plan (05/18/2024 8:39 AM EDT): Assessment: Following with Dr. Bob incidental finding on CT during breast cancer work up. Low risk history for thyroid CA Stage 3a chronic kidney disease 12/24/2023 Assessment & Plan (03/19/2025 10:49 AM EDT): Assessment: BUN Date Value Ref Range Status 12/24/2024 18 7 - 21 mg/dL Final Currently stable Pulmonary embolism 11/05/2023 Assessment & Plan (03/19/2025 10:48 AM EDT): Assessment: PE 11/05/2023 was on Eliquis for 3 months Assessment & Plan (05/19/2024 2:19 PM EDT): Assessment: PE 11/05/2023 was on Eliquis for 3 months Obesity, Class III, BMI >= 40 07/29/2023 RA (rheumatoid arthritis) 07/26/2023 Assessment & Plan (03/19/2025 10:48 AM EDT): Assessment: Follows with Dr. Celia Lewis Assessment & Plan (05/18/2024 8:46 AM EDT): Assessment: sero positive RA methotrexate and folic acid Follows with Dr. Celia Lewis Assessment & Plan (09/26/2023 8:42 AM EST): Assessment: sero positive RA methotrexate and folic acid Follows with Dr. Celia Lewis Assessment & Plan (07/26/2023 12:12 PM EST): Assessment: sero positive RA methotrexate and folic acid currently on hold Follows with Dr. Celia Lewis ( Rheumatology) Invasive lobular carcinoma of breast in female 1 09/22/2022 Cancer Staging:Clinical stage from 07/23/2023:Stage IB(cT2, cN0, cM0, G1, ER+, WV+, HER2-) - Signed by Mendoza Yang MD on 07/23/2023 Pathologic stage from 08/06/2023: pT3, pN3, G2, ER+, WV+, HER2- - Signed by Mendoza Yang MD on 09/12/2023 Assessment & Plan (05/18/2024 8:43 AM EDT): Assessment: History of Left mastectomy with chemo and radiation Radiation L chest wall and regional nodes 03/03/2024-03/24/2024 . Zometa q 6 months started 04/21/2024 Arimdex 04/2024 Verzinio 04/2024 Following with oncology Palpitations 02/05/2023 Assessment & Plan (03/19/2025 10:47 AM EDT): Assessment: evaluated for possible atrial fibrillation on metoprolol Follows with Dr. John Dc ( Cardiology,) currently stable Assessment & Plan (05/18/2024 8:46 AM EDT): Assessment: evaluated for possible atrial fibrillation on metoprolol Follows with Dr. John Dc ( Cardiology, Last office visit 02/05/2023) :No additional treatment is needed at this time. Pt. is currently Asymptomatic Assessment & Plan (09/26/2023 8:39 AM EST): Assessment: evaluated for possible atrial fibrillation on metoprolol Follows with Dr. John Dc ( Cardiology, Last office visit 02/05/2023) :No additional treatment is needed at this time. Pt. is currently Asymptomatic Assessment & Plan (07/26/2023 12:14 PM EST): Assessment: evaluated for possible atrial fibrillation on metoprolol Follows with Dr. John Dc ( Cardiology, Last office visit 02/05/2023) :No additional treatment is needed at this time. Pt. is currently Asymptomatic Primary hypertension 01/31/2023 Assessment & Plan (03/19/2025 10:47 AM EDT): Assessment: takes Metoprolol,Losartan last BP in epic of 02/23/25 156/70 Assessment & Plan (05/19/2024 2:17 PM EDT): Assessment: Stable on medication Today 145/82 To take medication morning of surgery Assessment & Plan (09/26/2023 8:39 AM EST): Assessment: Managed with med, acceptable for surgery BP in office 09/26/2023: 152/56 Monitored by PCP Assessment & Plan (07/26/2023 12:06 PM EST): Assessment: Managed with med, acceptable for surgery Date: BP: 07/26/2023 174/74 07/23/2023 181/84 02/11/2023 112/56 Monitored by PCP Assessment & Plan (01/31/2023 1:06 PM EDT): Assessment: managed on mediation, monitored By PCP BP 146/72 GLOVER (dyspnea on exertion) 01/31/2023 Assessment & Plan (05/19/2024 2:17 PM EDT): Assessment: Chronic, denies any worsening from baseline Does not use any inhalers, no O2 RA at 96& Clear lungs sounds Assessment & Plan (09/26/2023 8:40 AM EST): Assessment: Chronic, denies any worsening from baseline Does not use any inhalers SpO2 94% on RA Assessment & Plan (07/26/2023 12:07 PM EST): Assessment: Chronic, denies any worsening from baseline Does not use any inhalers RA 07/26/23 1155 SpO2: 95% Assessment & Plan (01/31/2023 1:12 PM EDT): Assessment: states increased GLOVER over last few months In wheelchair at visit Lungs CTA, SpO2 95% at rest + orthopnea- sleeps in recliner Edema 01/31/2023 Assessment & Plan (09/26/2023 8:41 AM EST): Assessment: +1 BLE edema No erythema or ulcers Managed with Lasix Assessment & Plan (07/26/2023 12:10 PM EST): Assessment: +1 BLE edema, chronic vascular discoloration to mid andujar No erythema or ulcers Managed with Lasix Assessment & Plan (02/07/2023 8:08 AM EDT): Assessment: 2+ bilateral lower ext edema On Lasix States went to ED at [place] 01/28 ( records requested) for edema and was advised to increase Lasix and follow up with cardiology. Saw Dr. Dc 02/05- note in Epic No JVD noted Right arm weakness 03/14/2022 COPD (chronic obstructive pulmonary disease) Assessment & Plan (03/19/2025 10:45 AM EDT): Assessment: states was told by irrigation system operator that she had SURGERY TECHNICIAN but another told her she did not have it Does not use use inhaler Currently stable Assessment & Plan (01/31/2023 1:08 PM EDT): Assessment: states was told by irrigation system operator that she had SURGERY TECHNICIAN but another told her she did not have it Does use inhaler + GLOVER and orthopnea GERD (gastroesophageal reflux disease) 2 Assessment & Plan (03/19/2025 10:45 AM EDT): Assessment: trace mitral regurgitation per 08/2023 ECHO (+) systolic cardiac murmur Assessment & Plan (05/18/2024 8:47 AM EDT): Assessment: stable on Nexium Assessment & Plan (07/26/2023 12:08 PM EST): Assessment: Pt. reports symptoms controlled with medication Assessment & Plan (01/31/2023 1:10 PM EDT): Assessment: On nexium + hiatal hernia H/O total knee replacement, bilateral 05/19/2018 Acute post-operative pain 04/21/2018 S/P TKR (total knee replacement) using cement, b ilateral 04/21/2018 OA (osteoarthritis) of knee 03/31/2018 Arthritis of both knees 02/24/2018 Overview (02/24/2018): Added automatically from request for surgery [id number] Primary osteoarthritis of both knees 12/23/2017 Morbid obesity 12/23/2017 Assessment & Plan (03/19/2025 10:46 AM EDT): Assessment: BMI 48.8 Assessment & Plan (05/19/2024 2:15 PM EDT): Assessmet Body mass index is 50.81 kg/m . Assessment & Plan (09/26/2023 8:41 AM EST): Assessment: BMI 50.20 Assessment & Plan (07/26/2023 12:10 PM EST): Assessment: Body mass index is 49.52 kg/m . Weight reduction encouraged. Assessment & Plan (01/31/2023 1:10 PM EDT): Assessment: Body mass index is 52.13 kg/m . Idiopathic scoliosis and kyphoscoliosis 12/16/19 08 Assessment & Plan (09/26/2023 8:41 AM EST): Assessment: s/p surgical correction, per 01/02/2023 CXR:Thoracic dextroscoliosis in fusion rods again noted Assessment & Plan (07/26/2023 12:11 PM EST): Assessment: s/p surgical correction, per 01/02/2023 CXR:Thoracic dextroscoliosis in fusion rods again noted. Disorder of mitral valve 05/08/2007 Assessment & Plan (03/19/2025 10:45 AM EDT): Assessment: trace mitral regurgitation per 08/2023 ECHO (+) systolic cardiac murmur Assessment & Plan (05/18/2024 8:46 AM EDT): Assessment: trace mitral regurgitation per 08/2023 ECHO (+) systolic cardiac murmur Assessment & Plan (09/26/2023 8:40 AM EST): Assessment: trace mitral regurgitation per 08/2023 ECHO (+) systolic cardiac murmur Assessment & Plan (07/26/2023 12:09 PM EST): Assessment: trace mitral regurgitation per 2021 ECHO (+) systolic cardiac murmur Assessment & Plan (01/31/2023 1:09 PM EDT): Assessment: Trace mitral regurg on ECHO + systolic murmur Undiagnosed cardiac murmurs 05/06/2007 Spinal stenosis, unspecified region other than c ervical Mixed hyperlipidemia Assessment & Plan (03/19/2025 10:46 AM EDT): Assessment: takes Lipitor,stable Assessment & Plan (05/18/2024 8:44 AM EDT): Assessment: stable on medication Assessment & Plan (09/26/2023 8:38 AM EST): Assessment: Managed with Statin Monitored by PCP Assessment & Plan (07/26/2023 12:05 PM EST): Assessment: Managed with Statin Monitored by PCP Assessment & Plan (01/31/2023 1:09 PM EDT): Assessment: On statin, managed by PCP Obesity, unspecified Current Treatment and Therapy Plans Activase* Plan Start Date:04/05/2025 Plan Provider:Mitch Garcia MD Linked Problems Invasive lobular carcinoma o f breast in female (HCC) Treatment Medications No medications scheduled. AMB BONE MODIFYING AGENT: $$$$ - Q180D IF CrCl IS LESS THAN 30 ML/MIN - DENOSUMAB* Plan Start Date:07/13/2025 Plan Provider:Mitch Garcia MD Linked Problems Osteopenia of multiple sites Invasive lobular carcinoma of breast in female (HCC) Treatment Medications Current Day (Day 1 , Cycle 1 - Planned for 07/13/2025) Next Day (Day 1, Cycle 2 - Planned for 01/09/2026) denosumab (PROLIA) denosumab 60 mg inje ction (PROLIA) denosumab 60 mg injection (PROLIA) Past Treatment and Therapy Plans NON-CHEMO 1 Plan Name Start Date Discontinue Date Treatment Medications Discontinue Reason Plan Provider Cycles AMB BONE MODIFYING AGENT: $ - Q6 MONTHS IF CRCL IS GREATER THAN 30 ML/MIN 04/21/2024 04/13/2025 zoledronic acid (ZOMETA)zoledr onic acid iv piggyback (ZOMETA) Other Mitch Garcia MD 2 of 6 cycles started ONCOLOGY REGIMEN Plan Name Start Date Discontinue Date Treatment Medications Discontinue Reason Plan Provider Cycles AMB AC DOSE DENSE - DOXORUBICIN 60 CYCLOPHOSPHAMIDE 600 D1-Q14D THEN WEEKLY PACLITAXEL X12 10/22/19 24 03/03/2024 cyclophosphamide iv piggyback (CYTOXAN)DOXOrubi sheila (ADRIAMYCIN)fosap repitant (EMEND)PACLitaxel iv piggyback (TAXOL)palonosetr on (ALOXI)pegfilgras erin-jmdb (FULPHILA) Treatment Complete Mitch Garcia MD 3 of 3 cycles started AMB AC DOSE DENSE - DOXORUBICIN 60 CYCLOPHOSPHAMIDE 600 D1-Q14D THEN WEEKLY PACLITAXEL X12 4 09/13/2023 cyclophosphamide iv piggyback (CYTOXAN)DOXOrubi sheila (ADRIAMYCIN)fosap repitant (EMEND)PACLitaxel iv piggyback (TAXOL)palonosetr on (ALOXI)pegfilgras erin (NEULASTA ONPRO) Mendoza March MD Treatment not started Lifetime Dose Tracking * Chemical Lifetime Dose Automatic Entry Manual Entr y doxorubicin 122.622 mg/m2 (280.8 mg) 122.622 mg/m2 (2 80.8 mg) 0 mg/m2 (0 mg) Resolved Problems Problem Noted Date Diagnosed Date Resolved Date Atrial tachycardia, paroxysmal 03/14/2022 02/05/2023 Assessment & Plan (01/31/2023 1:05 PM EDT): Assessment: patient states that she had AFIB in past-- on Metoprolol Follows with Dr. Dc States HR 25-120 at home at pulse ox, denies chest pain or palpitations RRR on exam today Hypertensive urgency 03/14/2022 022 AF (paroxysmal atrial fibrillation) 12/08/2021 03/14/2022
--- OUTSIDE RECORDS SUMMARY | 2025-04-19 08:34 | XMS_ITS | Encounter Summary ---
Author Organization [facility] Address [address] [place] [address] Care Team Providers Care Supervisor Aircraft Cleaning Name Role Phone Chris Amanda Primary Care Provider [phone] Janet Dillard DO Unavailable UnavailSunny Coates MD Primary Care Provider [phone] Yvonne Baumann RN Unavailable [phone] Mitch Garcia MD Unavailable [phone] Hilda TempletonC Unavailable [phone] Deepika Garcia Unavailable Unavailable Nona Lomax RD Unavailable [phone] Nia Snider RN Unavailable Unavailable Source Comments In the event this information is protected by the Federal Confidentiality of Alcohol and Drug AbusePatient Records regulations: The Federal rules restrict any use of the information to criminally investigate or prosecute any alcohol or drug abuse patient.[facility] Encounter Details Date Type Department Care Team (Late st Contact Info) Description 06/14/2022 Patient Msg Orthopaedics [address] [place] [address] Micah Deal DO [address] [place] [address] Request an Appointment Social History Tobacco Use Types Packs/Day Years [...] place to sleep or slept in a senior living (including now)? No 03/14/2022 Area Deprivation Index Answer Date Joaquin rded National Score (1-100), lower number is lower ri sk 84 03/23/2022 State Score (1-10), lower number is lower risk N ot on file 03/23/2022 Data from: https://www.neighborhoodatlas.medicine.[facility].edu/. Last address used for calculation [address] 03/23/2022 Comments No Sex and Gender Information [...] of Assessment Author No 03/16/2022 3:33 PM Amanda Ferrara RN * Are you blind or do you have serious difficulty seeing, even when wearing glasses? Answer Date of Assessment Author No 03/16/2022 3:33 PM Amanda Ferrara RN * Do you have serious difficulty walking or climbing stairs? Answer Date of Assessment Author No 03/16/2022 3:33 PM Yee Ferrara RN * Do you have difficulty dressing or bathing? Answer Date of Assessment Author No 03/16/2022 3:33 PM Amanda Ferrara RN * Because of a physical, mental, or emotional condition, do you have difficulty doing errands alone such as visiting a doctor's office or shopping? Answer Date of Assessment Author No 03/16/2022 3:33 PM Amanda Ferrara RN documented as of this encounter Mental Status * Because of a physical, mental, or emotional condition, do you have serious difficulty concentrating, remembering, or making decisions? Answer Entry Date Author No 03/16/2022 3:33 PM Amanda Ferrara RN documented in this encounter Plan of Treatment Upcoming Encounters Date Type Department Care Team (Late st Contact Info) Description 05/10/2025 7:15 AM EDT Specialty Pharmacy [facility] [address] [place] [address] Pharmacist, Specialtygroup [address] [place] [address] [place] [address] Refill - Kisqali [28DS] C005/1705/17/2025 8:00 AM EDT Procedure Pulmonary Lab [address] [place] [address] Dyspnea and respiratory abnormalities [R06.00, R06.89] 05/17/2025 8:15 AM EDT Procedure Pulmonary Lab [address] [facility] [address] Dyspnea and respiratory abnormalities [R06.00, R06.89] 05/17/2025 8:30 AM EDT Office Visit Pulmonary Medicine [address] [facility] [address] Dayanna Aaltorre APRN.TWISTER FRAME TENDER [address] [facility] [place] [address] Return in about 1 month (around 05/17/2025). 06/10/2025 1:30 PM EDT Appointment Procedures [address] [place] [address] Debbie Gunn MD [address] [place], [place] [id number] 07/07/2025 9:00 AM [facility] Infusion Center Hematology/Oncolo gy [address] [facility] [place] [address] lab 07/14/2025 9:30 AM [facility] Hematology [address] [place] [address] Mitch Garcia MD [address] [place] [address] Schedule labs prior to Virtual visit with DR Garcia 07/15/2025 9:00 AM [facility] Infusion Center Hematology/Oncolo gy [address] [facility] [place] [address] Prolia injection day after RADHA virtual visit per staff message 08/23/2025 10:00 AM EST Office Visit Kidney Medicine [address] [place] [address] Shante Carroll APRN.TWISTER FRAME TENDER [address] [facility] [place] [address] 6 month follow up 11/01/2025 2:00 PM EDT Office Visit Rheumatology [address] [facility] [place] [id number] Nany Bustillos MD [address] [place] [address] RA documented as of this encounter Visit Diagnoses Not on filedocumented in this encounter Care Teams Supervisor Aircraft Cleaning Relationship Specialty Start Date End Date Chris Amanda PCP - General 01/28/07 08/21/23 Sunny Jenkins MD PCP - General Internal Medicine 08/22/23 Janet Dillard DO Referring Family Medicine 07/14/21 Yvonne Baumann RN [address] [place] [address] [place] [address] Specialty Schedule Planning Manager Hematology/Oncology 09/23/23 04/21/24 Mitch Garcia MD [address] [place] [address] [place] [address] Physician Hematology/Oncology 09/23/23 Hilda Templeton, PA-C [address] [place] [address] [place] [address] Physician Biomedical Field Service Engineer Hematology/Oncology 09/23/23 Deepika Garcia LSW Nurse Private Duty 09/24/[address] [place] [address] [place] [address] Registered Dietitian Nutrition 10/22/23 Nia Snider, MALORIE Specialty Schedule Planning Manager Hematology/Oncology 04/22/24 documented as of this encounter
--- OUTSIDE RECORDS SUMMARY | 2025-04-19 08:34 | XMS_ITS | Encounter Summary ---
Author Organization [facility] Address [address] [place] [address] Care Team Providers Care Commercial Relationship Manager Name Role Phone Janet Dillard DO Primary Care Provider [phone] Janet Dillard DO Unavailable [phone] Unallocated, Noms Provider MD Primary Care Provi gaurang Janet Dillard DO Unavailable [phone] Encounter Details Date Type Department Care Team (Late st Contact Info) Description 02/28/2023 External Result Encounter [facility] External Department Unsolicited MereisabellaNikko, DO [address] [place] [address] Social History Tobacco Use Types Packs/Day Years Used Date Smoking Tobacco: Never Smokeless Tobacco: Never Comments Unknown Sex and Gender Information Value Date Recorded Sex Assigned at Not on file Legal Sex Female 7:36 PM EDT Gender Identity Not on file Sexual Orientation Not on file documented as of this encounter Plan of Treatment Not on file documented as of this encounter Procedures Procedure Name Priority Date/Time Associated Diagnosis Comments US NEEDLE ASPIRATION 02/28/2023 3:24 PM EDT documented in this encounter Results * US NEEDLE ASPIRATION (02/28/2023 3:24 PM EDT) Anatomical Region Laterality Modality Radiographic Citlalli ging 02/28/2023 3:24 PM EDT Impressions 03/04/2023 3:39 PM EDT STATUS POST ULTRASOUND-GUIDED BIOPSY OF A RIGHT THYROID NODULE. INTERVAL DECREASE IN SIZE OF NODULE SEEN PREVIOUSLY AT THE INFERIOR LEFT THYROID LOBE. Impression dictated by: Pat Roberts M.D.02/28/2023 3:33 PM Dictation Location: [place] [address] Tech: Betty Payne Transcribed By: ZULAY 02/28/23 1533 Dictated By: Pat Roberts MD 02/28/23 1524 Signed By: <Electronically signed by MD Pat Roberts in OV> 02/28/23 1533 Narrative 03/04/2023 3:39 PM EDT [facility] [address] Ultrasound Report Signed Patient: Yue Solomon MR#: [id number] : 1955 Acct:[id number] Age/Sex: 67 / F ADM Date: 02/28/23 Loc: Room: Type: [facility] Attending Dr: Nikko Astorga DO Ordering Provider: Nikko Astorga DO Date of Service: 02/28/23 US/US needle aspiration: E04.1 Copies to: Nikko Astorga DO ULTRASOUND-GUIDED RIGHT THYROID NODULE BIOPSY CLINICAL DATA: Bilateral thyroid nodules on previous outside imaging COMPARISON: 03/29/2022 from [facility]. Real-time ultrasound evaluation of the thyroid was [...] blood pressure medication today. US/US needle aspiration Procedure Note Radiology, Radiologist, - 03/04/2023 [facility] [place] [address] Ultrasound Report Signed Patient: Yue Solomon JMR#: [id number] : 5Acct:[id number] Age/Sex: 67 / FADM Date: 02/28/23 Loc: Room:Type: [facility] Attending Dr: Nikko Astorga DO Ordering Provider: Nikko Astorga DO Date of Service: 02/28/23 US/US needle aspiration: E04.1 Copies to: Nikko Astorga DO ULTRASOUND-GUIDED RIGHT THYROID NODULE BIOPSY CLINICAL DATA: Bilateral thyroid nodules on previous outside imaging COMPARISON: 03/29/2022 from [facility]. Real-time ultrasound evaluation of the thyroid was performed. There is alarge, nearly isoechoic nodule at the midportion of the right thyroid lobe that has some smallerhypoechoic components. It measures at least 3.5 x 1.6 x 2.2 cm in size. There is prominentperipheral blood flow. At the inferior pole on the left there is a small residual hypoechoic nodulararea measuring 8 x 6 x 6 mm. At the time of the comparison this area measured 2.0 x 1.6 x 1.2 cm.Because of the significant decrease in size of the left thyroid lesion, only the right nodule wasbiopsied. The procedure was discussed with the patient and consent was obtained.Following sterile preparation and local anesthesia with lidocaine, three 84-arypgoujz-hlshoy aspiration specimens were obtained under direct ultrasound visualization. Samples weresubmitted to pathology for preliminary analysis. The samples were predominantly blood. Twoadditional samples were subsequently obtained for cellblock. This lesion was previously biopsiedFe2022. At that time, there were similar results with predominantly blood and rarefollicular groups. There were no immediate complications however patient was observed for a short period oftime after the procedure due to elevated blood pressure. Patient did not take her blood pressuremedication today. US/US needle aspiration IMPRESSION: STATUS POST ULTRASOUND-GUIDED BIOPSY OF A RIGHT THYROID NODULE. INTERVAL DECREASE IN SIZE OF NODULE SEEN PREVIOUSLY AT THE INFERIOR LEFTTHYROID LOBE. Impression dictated by: Pat Roberts M.D.02/28/2023 3:33 PM Dictation Location: [place] [address] Tech: Betty Payne Transcribed By: ZULAY 02/28/23 1533 Dictated By: Pat Roberts MD 02/28/23 1524 Signed By: <Electronically signed by MD Pat Roberts in OV> 02/28/23 1533 us Nikko Astorga DO IMG XR PROCEDURES Final Res ult documented in this encounter Visit Diagnoses Not on filedocumented in this encounter Care Teams Commercial Relationship Manager Relationship Specialty Start Date End Date Janet Dillard DO PCP - General Family Medicine 01/16/23 04/02/23 Janet Dillard DO [address] [facility] [address] [place] [address] PCP - ACO Reach 01/17/23 10/01/24 Unallocated, Noms Provider, MD Kimber [facility] [place] [address] PCP - General 04/03/23 Janet Dillard DO [address] [facility] [address] [place] [id number] PCP - ACO Reach 10/09/24 11/26/24 documented as of this encounter
--- OUTSIDE RECORDS SUMMARY | 2025-04-19 08:34 | XMS_ITS | Clinical Summary ---
Author Organization [facility] Address [address] [place] [address] Care Team Providers Care Gear Nicker Name Role Phone Unallocated, [facility] Provider MD Primary Care Provi gaurang Allergies Active Allergy Reactions Criticality Noted Date Comments Fentanyl Unknown Medium 04/01/2018 Drop in RR and drop in pulse ox to 70% Sulfa Antibiotics Hives,Rash,Unknown Low 03/08/2007 Wound Dressing Adhesive Rash Low 05/06/2007 ADHESIVE BANDAGES.. RASH Medications losartan (Cozaar) 50 MG tabletIndication s:Primary hypertension Take 1 tablet (50 mg) by mouth in the morning. 90 tablet 3 3 Active esomeprazole (NexIUM) [address] capsule Take 20 mg by mouth in the morning. Take before meals. Active Cholecalciferol (Vitamin D3) 483913 UNIT/GM powder Take 1 capsule by mouth 1 (one) time each day at the same time. Active furosemide (Lasix) 20 MG tablet Take 20 mg by mouth in the morning. Active metoprolol tartrate (Lopressor) 100 MG tablet Take 100 mg by mouth every 12 (twelve) hours. Active potassium chloride CR (Klor-Con) 10 MEQ ER tablet Take 10 mEq by mouth in the morning. Active acetaminophen (Tylenol) 500 MG tablet Take 1,000 mg by mouth every 6 (six) hours if needed 3 Active apixaban (Eliquis) 5 MG tablet Take 5 mg by mouth in the morning and 5 mg in the evening. 4 Active ciprofloxacin (Cipro) 500 MG tablet Take 500 mg by mouth in the morning and 500 mg before bedtime. 4 Active metroNIDAZOLE (Flagyl) 500 MG tablet Take 1 tablet by mouth every 12 (twelve) hours 4 Active folic acid (Folvite) 1 MG tablet TAKE 1 TABLET BY MOUTH IN THE MORNING. EXCEPT THE DAYS OF TAKING METHOTREXATE. Active nystatin-triamci nolone (Mycolog II) ointment Apply 1 Application topically in the morning and 1 Application in the evening. 3 Active spironolactone (Aldactone) 25 MG tablet Take 25 mg by mouth Daily Active atorvastatin (Lipitor) 40 MG tablet 4 Active methotrexate 2.5 MG tablet TAKE 6 TABLETS BY MOUTH ONE TIME PER WEEK Active nystatin (Mycostatin) ointment APPLY TOPICALLY 3 TIMES A DAY FOR 10 DAYS 4 Active Active Problems Problem Noted Date Diagnosed Date Skin abscess 01/15/2024 Encounters Date Type Department Care Team Description 03/05/2025 9:00 AM EDT Ancillary Procedure [facility] [address] [facility] [address] [place] [phone] Encounter for screening mammogram for malignant neoplasm of breast 03/05/2025 Travel 03/04/2025 Travel from Last 3 Months Family History Medical History Relation Name Comments CVA Father Heart failure Father Prostate cancer Father Stroke Father Heart disease Father's Brother Heart failure Father's Brother Breast cancer Father's Sister COVID Father's Sister DJD Mother Pneumonia Mother Char Disease Sibling No Known Problems Sister 1 sister C VA . older sister HTN, stroke Colon polyps Neg Hx Ovarian cancer Neg Hx Relation Name Status Comments Brother 3 brothers Daughter Alive 1 daughter Father Father's Brother Father's Sister Mother Sibling Sister 4 sisters Social History Tobacco Use Types Packs/Day Years Used Date Smoking Tobacco: Never Smokeless Tobacco: Never Tobacco Cessation:Counseling Given: Not Answered Alcohol Use Standard Drinks/Week Comments Never 0 (1 standard drink = 0.6 oz pure alcohol) caffeine intake : 1-2 cups per day , soda/pop Comments No Sex and Gender Information Value Date Recorded Sex Assigned at Not on file Legal Sex Female 7:36 PM EDT Gender Identity Not on file Sexual Orientation Not on file Last Filed Vital Signs Vital Sign Reading Time Taken Comments Blood Pressure 156/82 12/27/2022 12:00 PM EDT Pulse - - Temperature - - Respiratory Rate - - Oxygen Saturation - - Inhaled Oxygen Concentration - - Weight 118 kg (260 lb) 01/15/2024 1:27 PM EDT Height 157.5 cm (5' 2 ) 01/15/2024 1:27 PM EDT Body Mass Index 47.55 01/15/2024 1:27 PM EDT Plan of Treatment Health Maintenance Due Date Last Done Comments CT Colonography 1955 FIT-DNA 1955 FIT 1955 FOBT 1955 Sigmoidoscopy 1955 Influenza Vaccine (#1) 2025 Colonoscopy 02/11/2033 02/11/2023, 01/24, 02/11/2023, Additional history exists Colorectal Cancer Screening 02/11/2033 Pneumococcal Vaccine: 65+ Years Completed 12/31/2021, 02/14/2021, 08/04/2016 Mammogram Discontinued 03/05/2025, 12/26, 04/30/2023, Additional history exists Procedures Procedure Name Priority Date/Time Associated Diagnosis Comments BI MAMMOGRAM SCREENING TOMOSYNTHESIS RIGHT Routine 03/05/2025 9:25 AM EDT Encounter for screening mammogram for malignant neoplasm of breast COLONOSCOPY Routine 07/23/2016 12:00 PM EST from Last 3 Months or Most Recently Relevant to Health Maintenance Results * Right screening mammogram with tomosynthesis (03/05/2025 9:25 AM EDT) Anatomical Region Laterality Modality Breast Right Mammography 03/05/2025 1:15 PM EDT Impressions 03/05/2025 1:25 PM EDT No specific evidence of malignancy seen in the right breast. BIRADS 2 - Benign Findings DENSITY: The breasts are heterogeneously dense, which may obscure small masses. FOLLOW-UP: Routine Screening Mammogram Board Certified Radiologists. Accredited by the ACR and FDA. MAMMOGRAPHY IS VERY IMPORTANT TO YOUR HEALTH. THE [place] [employer] SOCIET[employer] GUIDELINES RECOMMEND THAT WOMEN 40 YEARS OF AGE AND OLDER SHOULD HAVE A MAMMOGRAM EVERY YEAR. A REMINDER LETTER WILL BE SENT AT THE APPROPRIATE TIME. ELECTRONICALLY SIGNED BY: Yusuf Staton M.D. Narrative 03/05/2025 1:25 PM EDT EXAMINATION: BI MAMMOGRAM SCREENING TOMOSYNTHESIS RIGHT CLINICAL HISTORY: screening TECHNIQUE: Diagnostic digital mammogram study of the right breast was performed with 2D and 3D tomosynthesis imaging. Study was compared to the diagnostic mammogram study of the right breast dated 01/24/2024 and ultrasound study of the right breast dated 01/24/2024. FINDINGS: A few asymmetric densities are noted which appear similar to the prior study. Largest asymmetric density is noted laterally, similar to the prior study and compatible with a cyst when correlated with the ultrasound study. Mild scattered benign-appearing calcifications. No evidence of interval dominant spiculated mass, grouped microcalcifications or skin thickening which would be suggestive of malignancy. Procedure Note Yusuf Staton MD - 03/05/2025 EXAMINATION: BI MAMMOGRAM SCREENING TOMOSYNTHESIS RIGHT CLINICAL HISTORY: screening TECHNIQUE: Diagnostic digital mammogram study of the right breast wasperformed with 2D and 3D tomosynthesis imaging. Study was compared to thediagnostic mammogram study of the right breast dated 01/24/2024 andultrasound study of the right breast dated 01/24/2024. FINDINGS: A few asymmetric densities are noted which appear similar to theprior study. Largest asymmetric density is noted laterally, similar to theprior study and compatible with a cyst when correlated with the ultrasoundstudy. Mild scattered benign-appearing calcifications. No evidence of interval dominant spiculated mass, groupedmicrocalcifications or skin thickening which would be suggestive ofmalignancy. IMPRESSION: No specific evidence of malignancy seen in the right breast. BIRADS 2 - Benign Findings DENSITY: The breasts are heterogeneously dense, which may obscure smallmasses. FOLLOW-UP: Routine Screening Mammogram Board Certified Radiologists. Accredited by the ACR and FDA. MAMMOGRAPHY IS VERY IMPORTANT TO YOUR HEALTH. THE [place] CANCER SOCIETYGUIDELINES RECOMMEND THAT WOMEN 40 YEARS OF AGE AND OLDER SHOULD HAVE AMAMMOGRAM EVERY YEAR. A REMINDER LETTER WILL BE SENT AT THE APPROPRIATE TIME. ELECTRONICALLY SIGNED BY: Yusuf Staton M.D. us Jesi Gerard MD IMG BI PROCEDURES Final Resul t * Colonoscopy (07/23/2016 12:00 PM EST) Anatomical Region Laterality Modality Endoscopy 07/23/2016 12:0 0 PM EST Narrative 07/23/2016 12:00 PM EST PERFORMED AT [facility] LOCATION:[id number] Procedure Note CONVERSION, GENERIC - 01/10/2023 PERFORMED AT [facility] LOCATION:[id number] Chris Amanda ENDOSCOPY PROCEDURE ORDERABLES Final Result from Last 3 Months or Most Recently Relevant to Health Maintenance Insurance MEDICARE [place] Advance Directives Documents on File Type Date Recorded Patient Rn Case Mgr Expl anation Advance Directives and Living Will 04/08/2018 2018-04-08 full code Care Teams Gear Nicker Relationship Specialty Start Date End Date Unallocated, Noms Provider, [address] [place], [place] [id number] PCP - General 04/03/23
--- OUTSIDE RECORDS SUMMARY | 2025-04-19 08:34 | XMS_ITS | Encounter Summary ---
Author Organization [facility] Address [address] [place] [address] Care Team Providers Care Slip Sheeter Name Role Phone Chris Amanda Primary Care Provider [phone] Janet Dillard DO Unavailable UnavailSunny Coates MD Primary Care Provider [phone] Yvonne Baumann RN Unavailable [phone] Mitch Garcia MD Unavailable [phone] Hilda TempletonC Unavailable [phone] Deepika Garcia Unavailable Unavailable Nona Lomax RD Unavailable [phone] Nia Snider RN Unavailable Unavailable Source Comments In the event this information is protected by the Federal Confidentiality of Alcohol and Drug AbusePatient Records regulations: The Federal rules restrict any use of the information to criminally investigate or prosecute any alcohol or drug abuse patient.[facility] Encounter Details Date Type Department Care Team (Late st Contact Info) Description 02/08/2023 GI Preprocedure Call [facility] Surgery [address] [place] [address] Treasure[employer] [address] [place] [address] Social History Tobacco Use Types Packs/Day Years [...] slept in a usp (including now)? No 03/14/2022 Area Deprivation Index Answer Date Joaquin rded National Score (1-100), lower number is lower ri sk 92 01/29/2023 State Score (1-10), lower number is lower risk 9 01/29/2023 Data from: https://www.neighborhoodatlas.medicine.[facility].edu/. Last address used for calculation Armando You Tiarra 01/29/2023 Comments No Sex and Gender Information [...] of Assessment Author No 03/16/2022 3:33 PM Aamnda Ferrara RN * Do you have serious difficulty walking or climbing stairs? Answer Date of Assessment Author No 03/16/2022 3:33 PM Amanda Ferrara RN * Do you have difficulty [...] AM EDT Specialty Pharmacy [facility] [id number] [place] [address] Pharmacist, [facility] [address] [place] [address] [place] [address] Refill - Kisqali [28DS] C005/1705/17/2025 8:00 AM EDT Procedure Pulmonary Lab [address] [place] [address] Dyspnea and respiratory abnormalities [R06.00, R06.89] 05/17/2025 8:15 AM EDT Procedure Pulmonary Lab [address] [facility] [address] Dyspnea and respiratory abnormalities [R06.00, R06.89] 05/17/2025 8:30 AM EDT Office Visit Pulmonary Medicine [address] [facility] [place] [address] Dayanna Alatorre APRN.PAPER AND PRINTS RESTORER [address] [facility] [address] Return in about 1 month (around 05/17/2025). 06/10/2025 1:30 PM EDT Appointment Procedures [address] [place] [address] Debbie Gunn MD [address] [place] [address] [address] [place], [place] [id number] 07/07/2025 9:00 AM [facility] Infusion Center Hematology/Oncolo gy [address] [facility] [address] [place] [address] lab 07/14/2025 9:30 AM [facility] Hematology [address] [place] [address] Mitch Garcia MD [address] [place] [address] Schedule labs prior to Virtual visit with DR Garcia 07/15/2025 9:00 AM [facility] Hematology/Oncolo gy [address] [facility] [place] [address] Prolia injection day after RADHA virtual visit per staff message 08/23/2025 10:00 AM EST Office Visit Kidney Medicine [address] [place] [address] Shante Carroll APRN.PAPER AND PRINTS RESTORER [address] [facility] [place] [address] 6 month follow up 11/01/2025 2:00 PM EDT Office Visit Rheumatology [address] [facility] [place] [id number] Nany Bustillos MD [address] [place] [address] RA documented as of this encounter Visit Diagnoses Not on filedocumented in this encounter Care Teams Slip Sheeter Relationship Specialty Start Date End Date Chris Amanda PCP - General 01/28/07 08/21/23 Sunny Jenkins MD PCP - General Internal Medicine 08/22/23 Janet Dillard DO Referring Family Medicine 07/14/21 Yvonne Baumann RN [address] [place] [address] [place] [address] Specialty Implant Polisher Hematology/Oncology 09/23/23 04/21/24 Mitch Garcia MD [address] [place] [address] [place] [address] Physician Hematology/Oncology 09/23/23 Hilda Templeton, PA-C [address] [place] [address] [place] [address] Physician News Operations Manager Hematology/Oncology 09/23/23 Deepika Garcia LSW Regional Economist 09/24/[address] [place] [address] [place] [address] Registered Dietitian Nutrition 10/22/23 Nia Snider, MALORIE Specialty Implant Polisher Hematology/Oncology 04/22/24 documented as of this encounter
--- OUTSIDE RECORDS SUMMARY | 2025-04-19 08:34 | XMS_ITS | Encounter Summary ---
Author Organization [facility] Address [address] [place] [address] Care Team Providers Care Bottle Washing Machine Operator Name Role Phone Chris Amanda Primary Care Provider [phone] Janet Dillard DO Unavailable UnavailSunny Coates MD Primary Care Provider [phone] Yvonne Baumann RN Unavailable [phone] Mitch Garcia MD Unavailable [phone] Hilda Templeton-C Unavailable [phone] Deepika Garcia Unavailable Unavailable Nona Lomax RD Unavailable [phone] Nia Snider RN Unavailable Unavailable Source Comments In the event this information is protected by the Federal Confidentiality of Alcohol and Drug AbusePatient Records regulations: The Federal rules restrict any use of the information to criminally investigate or prosecute any alcohol or drug abuse patient.[facility] Encounter Details Date Type Department Care Team (Late st Contact Info) Description 01/18/2023 Patient Msg Gastroenterology [address] [place] [address] Provider, [facility] prep instructions Social History Tobacco Use Types Packs/Day Years [...] place to sleep or slept in a halfway (including now)? No 03/14/2022 Area Deprivation Index Answer Date Joaquin rded National Score (1-100), lower number is lower ri sk 84 09/07/2022 State Score (1-10), lower number is lower risk N ot on file 09/07/2022 Data from: https://www.neighborhoodatlas.medicine.[facility].edu/. Last address used for calculation Armando You Avmcihell 09/07/2022 Comments No Sex and Gender Information Value [...] 03/16/2022 3:33 PM Michell Ferrara RN * Are you blind or do you have serious difficulty seeing, even when wearing glasses? Answer Date of Assessment Author No 03/16/2022 3:33 PM Michell Ferrara RN * Do you have serious difficulty walking or climbing stairs? Answer Date of Assessment Author No 03/16/2022 3:33 PM Michell Ferrara RN * Do you have difficulty dressing or bathing? Answer Date of Assessment Author No 03/16/2022 3:33 PM Michell Ferrara RN * Because of a physical, [...] Entry Date Author No 03/16/2022 3:33 PM Michell Ferrara RN documented in this encounter Plan of Treatment Upcoming Encounters Date Type Department Care Team (Late st Contact Info) Description 05/10/2025 7:15 AM EDT Specialty Pharmacy [facility] [address] [place], [place] [id number] [place] [address] Pharmacist, [facility]ty[facility] [address] [place] [address] [place] [address] Refill - Kisqali [28DS] C005/1705/17/2025 8:00 AM EDT Procedure Pulmonary Lab [address] [place], [place] [id number] Dyspnea and respiratory abnormalities [R06.00, R06.89] 05/17/2025 8:15 AM EDT Procedure Pulmonary Lab [address] [place], [place] [id number] Dyspnea and respiratory abnormalities [R06.00, R06.89] 05/17/2025 8:30 AM EDT Office Visit Pulmonary Medicine [address] [place] [address] Dayanna Alatorre APRN.CONTROL SYSTEM MANAGER [address] [facility] [place] [id number] Return in about 1 month (around 05/17/2025). 06/10/2025 1:30 PM EDT Appointment Procedures [address] [place] [address] Debbie Gunn MD [address] [place] [address] 07/07/2025 9:00 AM [facility] Hematology/Oncolo gy [address] [facility] [place] [address] lab 07/14/2025 9:30 AM [facility] Hematology [address] [place] [address] Mitch Garcia MD [address] [place] [address] Schedule labs prior to Virtual visit with DR Garcia 07/15/2025 9:00 AM [facility] Hematology/Oncolo gy [address] [facility] [place] [address] Prolia injection day after RADHA virtual visit per staff message 08/23/2025 10:00 AM EST Office Visit Kidney Medicine [address] [place] [address] Shante Carroll, SENIOR SYSTEMS ARCHITECT.CONTROL SYSTEM MANAGER [address] [facility] [place] [address] 6 month follow up 11/01/2025 2:00 PM EDT Office Visit Rheumatology [address] [facility] [place] [address] Nany Bustillos MD [address] [facility] [address] RA documented as of this encounter Visit Diagnoses Not on filedocumented in this encounter Care Teams Bottle Washing Machine Operator Relationship Specialty Start Date End Date Chris Amanda PCP - General 01/28/07 08/21/23 Sunny Jenkins MD PCP - General Internal Medicine 08/22/23 Janet Dillard DO Referring Family Medicine 07/14/21 Yvonne Baumann RN [address] [place] [address] [place] [address] Specialty Parts Coordinator Hematology/Oncology 09/23/23 04/21/24 Mitch Garcia MD [address] [place] [address] [place] [address] Physician Hematology/Oncology 09/23/23 Hilda Templeton, PA-C [address] [place] [address] [place] [address] Physician Traffic Engineer Hematology/Oncology 09/23/23 Deepika Garcia LSW Milk Deliverer 09/24/[address] [place] [address] [place] [address] Registered Dietitian Nutrition 10/22/23 Nia Snider, MALORIE Specialty Parts Coordinator Hematology/Oncology 04/22/24 documented as of this encounter
--- OUTSIDE RECORDS SUMMARY | 2025-04-19 08:34 | XMS_ITS | Encounter Summary ---
Author Organization [facility] Address [address] [place] [address] Care Team Providers Care Loss Prevention Representative Name Role Phone Chris Amanda Primary Care Provider [phone] Janet Dillard DO Unavailable UnavailSunny Coates MD Primary Care Provider [phone] Yvonne Baumann RN Unavailable [phone] Mitch Garcia MD Unavailable [phone] Hilda Templeton-C Unavailable [phone] Deepika Garcia Unavailable Unavailable Nona Lomax RD Unavailable [phone] Nia Snider RN Unavailable Unavailable Source Comments In the event this information is protected by the Federal Confidentiality of Alcohol and Drug AbusePatient Records regulations: The Federal rules restrict any use of the information to criminally investigate or prosecute any alcohol or drug abuse patient.[facility] Encounter Details Date Type Department Care Team (Late st Contact Info) Description 01/07/2023 Patient Msg Gastroenterology [address] [id number] Provider, Kaylenef KASEY COLONOSCOPY PREPARATION Social History Tobacco Use Types Packs/Day Years [...] place to sleep or slept in a group home (including now)? No 03/14/2022 Area Deprivation Index Answer Date Joaquin rded National Score (1-100), lower number is lower ri sk 84 09/07/2022 State Score (1-10), lower number is lower risk N ot on file 09/07/2022 Data from: https://www.neighborhoodatlas.medicine.[facility].edu/. Last address used for calculation Armando You Avmichell 09/07/2022 Comments No Sex and Gender Information [...] AM EDT Specialty Pharmacy [facility] [address] [place], [place] [address]164[address] [place] [address] Pharmacist, [facility]ty[facility] [address] [place] [address] [place] [address] Refill - Kisqali [28DS] C005/1705/17/2025 8:00 AM EDT Procedure Pulmonary Lab [address] [place], [place] [id number] Dyspnea and respiratory abnormalities [R06.00, R06.89] 05/17/2025 8:15 AM EDT Procedure Pulmonary Lab [address] [place], [place] [id number] Dyspnea and respiratory abnormalities [R06.00, R06.89] 05/17/2025 8:30 AM EDT Office Visit Pulmonary Medicine 57[address] [facility] [place] [address] Dayanna Alatorre APRN.MOTOR MECHANIC [address] [facility] [address] Return in about 1 month (around 05/17/2025). 06/10/2025 1:30 PM EDT Appointment Procedures [address] [place] [address] Debbie Gunn MD [address] [place] [address] 07/07/2025 9:00 AM [facility] Hematology/Oncolo gy [address] [facility] [facility] [place] [address] lab 07/14/2025 9:30 AM [facility] Hematology [address] [place] [address] Mitch Garcia MD [address] [place] [address] Schedule labs prior to Virtual visit with DR Garcia 07/15/2025 9:00 AM [facility] Hematology/Oncolo gy [address] [facility] [place] [address] Prolia injection day after RADHA virtual visit per staff message 08/23/2025 10:00 AM EST Office Visit Kidney Medicine [address] [place] [address] Shante Carroll, WELLNESS GUIDE.MOTOR MECHANIC [address] [facility] [place] [address] 6 month follow up 11/01/2025 2:00 PM EDT Office Visit Rheumatology 5700 [facility] [place] [address] Nany Bustillos MD [address] [facility] [place] [address] RA documented as of this encounter Visit Diagnoses Not on filedocumented in this encounter Care Teams Loss Prevention Representative Relationship Specialty Start Date End Date Chris Amanda PCP - General 01/28/07 08/21/23 Sunny Jenkins MD PCP - General Internal Medicine 08/22/23 Janet Dillard DO Referring Family Medicine 07/14/21 Yvonne Baumann RN [address] [place] [address] [place] [address] Specialty Cross Country Coach Hematology/Oncology 09/23/23 04/21/24 Mitch Garcia MD [address] [place] [address] [place] [address] Physician Hematology/Oncology 09/23/23 Hilda Templeton, PA-C [address] [place] [address] [place] [address] Physician Financial Accountant Hematology/Oncology 09/23/23 Deepika Garcia LSW Spot Welder Body Assembly 09/24/[address] [place] [address] [place] [address] Registered Dietitian Nutrition 10/22/23 Nia Snider, MALORIE Specialty Cross Country Coach Hematology/Oncology 04/22/24 documented as of this encounter
--- OUTSIDE RECORDS SUMMARY | 2025-04-19 08:34 | XMS_ITS | Encounter Summary ---
Author Organization [facility] Address [address] [place] [address] Care Team Providers Care Roofer Applicator Name Role Phone Janet Dillard DO Primary Care Provider Janet Dillard DO Unavailable Unallocated, Noms Provider MD Primary Care Provi gaurang Janet Dillard DO Unavailable [phone] Encounter Details Date Type Department Care Team (Late st Contact Info) Description 03/15/2023 Abstract [facility] Otolaryngology [address] [place] [address] Nikko Astorga DO [address] [place] [address] Social History Tobacco Use Types Packs/Day Years Used Date Smoking Tobacco: Never Smokeless Tobacco: Never Alcohol Use Standard Drinks/Week Comments Never 0 (1 standard drink = 0.6 oz pure alcohol) caffeine intake : 1-2 cups per day , soda/pop Comments Unknown Sex and Gender Information Value Date Recorded Sex Assigned at Not on file Legal Sex Female 7:36 PM EDT Gender Identity Not on file Sexual Orientation Not on file COVID-19 Exposure Response Date Recorded In the last 10 days, have yo u been in contact with someone who was confirmed or suspected to have Coronavirus/COVID-19? No / Unsure 03/11/2023 9:37 PM EDT documented as of this encounter Plan of Treatment Not on file documented as of this encounter Visit Diagnoses Not on filedocumented in this encounter Care Teams Roofer Applicator Relationship Specialty Start Date End Date Janet Dillard DO PCP - General Family Medicine 01/16/23 04/02/23 Janet Dillard DO [address] [facility] [address] [place] [address] PCP - ACO Reach 01/17/23 10/01/24 Unallocated, Noms Provider, [place] [address] PCP - General 04/03/23 Janet Dillard DO [address] [facility] [address] [place] [address] PCP - ACO Reach 10/09/24 11/26/24 documented as of this encounter
--- OUTSIDE RECORDS SUMMARY | 2025-04-19 08:34 | XMS_ITS | Encounter Summary ---
Author Organization [facility] Address [address] [place] [address] Care Team Providers Care Deck Scaler Name Role Phone Janet Dillard DO Unavailable [phone] Unallocated, Noms Provider Primary Care Provi gaurang Janet Dillard DO Unavailable [phone] Encounter Details Date Type Department Care Team (Late st Contact Info) Description 11/08/2023 Orders Only [facility] [address] [place] [address] Shaikh Walker MD [address] [place] [address] Social History Tobacco Use Types Packs/Day Years [...] Procedure Name Priority Date/Time Associated Diagnosis Comments SCANNED LABS Routine 11/08/2023 10:28 AM EDT documented in this encounter Results * SCANNED LABS (11/08/2023 10:28 AM EDT) us Shaikh Aaron [facility] CHG PERFORMABLES Final Resu lt documented in this encounter Visit Diagnoses Not on filedocumented in this encounter Care Teams Deck Scaler Relationship Specialty Start Date End Date Janet Dillard DO [address] [facility] [address] [place] [phone] PCP - ACO Reach 01/17/23 10/01/24 Unallocated, Noms Provider, [facility] [place] [address] PCP - General 04/03/23 Janet Dillard DO [address] [facility] [address] [place] [address] PCP - ACO Reach 10/09/24 11/26/24 documented as of this encounter
--- OUTSIDE RECORDS SUMMARY | 2025-04-19 08:34 | XMS_ITS | Encounter Summary ---
Author Organization [facility] Address [address] [place] [address] Care Team Providers Care Play Writer Name Role Phone Janet Dillard DO Unavailable Unavailabl Sunny Stone MD Primary Care Provider [phone] Mitch Garcia MD Unavailable [phone] Deepika Garcia DECK MATE Unavailable Unavailable Nona Lomax RD Unavailable [phone] Nia Snider RN Unavailable Unavailable Source Comments In the event this information is protected by the Federal Confidentiality of Alcohol and Drug AbusePatient Records regulations: The Federal rules restrict any use of the information to criminally investigate or prosecute any alcohol or drug abuse patient.[facility] Encounter Details Date Type Department Care Team (Late st Contact Info) Description 03/19/2025 Get Medical Advice Hematology [address] [place] [address] Mitch Garcia MD [address] [place] [address] Bloodwork? Social History Tobacco Use Types Packs/Day Years [...] place to sleep or slept in a fdc (including now)? No 07/30/2023 Area Deprivation Index Answer Date Joaquin rded National Score (1-100), lower number is lower ri sk 92 01/29/2023 State Score (1-10), lower number is lower risk 9 01/29/2023 Data from: https://www.neighborhoodatlas.medicine.[facility].edu/. Last address used for calculation Armando [...] encounter Miscellaneous Notes * Telephone Encounter - Mitch Garcia MD - 03/19/2025 12:20 PM EDT No other testing just thgelabs documented in this encounter Plan of Treatment Upcoming Encounters Date Type Department Care Team (Late st Contact Info) Description 05/10/2025 7:15 AM EDT Specialty Pharmacy [facility] [address] [place] [address] Pharmacist, [facility] [address] [place] [address] [place] [address] Refill - Kisqali [28DS] C09/22 05/17/2025 8:00 AM EDT Procedure Pulmonary Lab 5700 [place] [address] Dyspnea and respiratory abnormalities [R06.00, R06.89] 05/17/2025 8:15 AM EDT Procedure Pulmonary Lab [address] [facility] [place] [address] Dyspnea and respiratory abnormalities [R06.00, R06.89] 05/17/2025 8:30 AM EDT Office Visit Pulmonary Medicine [address] [facility] [place] [address] Dayanna Alatorre APRN.BALLET PROFESSOR [address] [facility] [place] [address] Return in about 1 month (around 05/17/2025). 06/10/2025 1:30 PM EDT Appointment Procedures [address] [place] [address] Debbie Gunn MD [address] [facility] [address] [place], [place] [address] 07/07/2025 9:00 AM [facility] Hematology/Oncolo gy [address] [facility] [address] lab 07/14/2025 9:30 AM [facility] Hematology [address] [place] [address] Mitch Garcia MD [address] [place] [address] Schedule labs prior to Virtual visit with DR Garcia 07/15/2025 9:00 AM [facility] Hematology/Oncolo gy [address] [facility] [place] [address] Prolia injection day after RADHA virtual visit per staff message 08/23/2025 10:00 AM EST Office Visit Kidney Medicine [address] [place] [address] Shante Carroll APRN.BALLET PROFESSOR [address] [place] [address] 6 month follow up 11/01/2025 2:00 PM EDT Office Visit Rheumatology 57[address] [facility] [place] [id number] Nany Bustillos MD [address] [place] [address] RA documented as of this encounter Visit Diagnoses Not on filedocumented in this encounter Care Teams Play Writer Relationship Specialty Start Date End Date Sunny Jenkins MD PCP - General Internal Medicine 08/22/23 Janet Dillard DO Referring Family Medicine 07/14/21 Mitch Garcia MD [address] [place] [address] [place] [address] Physician Hematology/Oncology 09/23/23 Deepika Garcia LSW Rn Ccu 09/24/[address] [place] [address] [place] [address] Registered Dietitian Nutrition 10/22/23 Nia Snider, MALORIE Specialty Roll Trucker Hematology/Oncology 04/22/24 documented as of this encounter
--- OUTSIDE RECORDS SUMMARY | 2025-04-19 08:34 | XMS_ITS | Encounter Summary ---
Author Organization [facility] Address [address] [place] [address] Care Team Providers Care Scrap Charger Name Role Phone Chris Amanda Primary Care Provider [phone] Janet Dillard DO Unavailable UnavailSunny Coates MD Primary Care Provider [phone] Yvonne Baumann RN Unavailable [phone] Mitch Garcia MD Unavailable [phone] Hilda Templeton-C Unavailable [phone] Deepika Garcia Unavailable Unavailable Nona Lomax RD Unavailable [phone] Nia Snider RN Unavailable Unavailable Source Comments In the event this information is protected by the Federal Confidentiality of Alcohol and Drug AbusePatient Records regulations: The Federal rules restrict any use of the information to criminally investigate or prosecute any alcohol or drug abuse patient.[facility] Encounter Details Date Type Department Care Team (Late st Contact Info) Description 07/19/2023 Lab Requisition [facility] Laboratory [address] [place] [address] Mendoza Yang MD [address] [place] [address] Person encountering health services to consult on behalf of another person Social History Tobacco Use Types Packs/Day Years [...] is lower risk 9 01/29/2023 Data from: https://www.neighborhoodatlas.medicine.[facility].edu/. Last address used for calculation Armando You Josemichell 01/29/2023 Comments No Sex and Gender Information [...] AM EDT Specialty Pharmacy [facility] [address] [facility] [address] [place] [address] Pharmacist, [facility] [address] [place] [address] [place] [address] Refill - Kisqali [28DS] C005/1705/17/2025 8:00 AM EDT Procedure Pulmonary Lab 5700 [place] [address] Dyspnea and respiratory abnormalities [R06.00, R06.89] 05/17/2025 8:15 AM EDT Procedure Pulmonary Lab [address] [facility] [place] [address] Dyspnea and respiratory abnormalities [R06.00, R06.89] 05/17/2025 8:30 AM EDT Office Visit Pulmonary Medicine [address] [facility] [address] Dayanna Alatorre APRN.PARANORMAL INVESTIGATOR [address] [facility] [place] [address] Return in about 1 month (around 05/17/2025). 06/10/2025 1:30 PM EDT Appointment Procedures [address] [place] [address] Debbie Gunn MD [address] [facility] [address] [place], [place] [address] 07/07/2025 9:00 AM [facility] Infusion Center Hematology/Oncolo gy [address] [facility] [place] [address] lab 07/14/2025 9:30 AM [facility] Hematology [address] [place] [address] Mitch Garcia MD [address] [place] [address] Schedule labs prior to Virtual visit with DR Garcia 07/15/2025 9:00 AM [facility] Hematology/Oncolo gy [address] [facility] [place] [address] Prolia injection day after RADHA virtual visit per staff message 08/23/2025 10:00 AM EST Office Visit Kidney Medicine [address] [place] [address] Shante Carroll APRN.PARANORMAL INVESTIGATOR [address] [facility] [place] [address] 6 month follow up 11/01/2025 2:00 PM EDT Office Visit Rheumatology 5700 [facility] [address] Nany Bustillos MD [address]40 [place] [address] RA documented as of this encounter Procedures Procedure Name Priority Date/Time Associated Diagnosis Comments OUTSIDE SURG PATH SLIDE REVIEW Routine 07/19/2023 4:11 PM EST Person encountering health services to consult on behalf of another person documented in this encounter Results * OUTSIDE SURG PATH SLIDE REVIEW (07/19/2023 4:11 PM EST) Case Report Surgical Pathology Report Case: [id number] Authorizing Provider: Mendoza Yang MD Collected: 07/19/2023 04:11 PM Ordering Location: [facility] Received: 07/19/2023 04:10 PM [facility] Pathologist: Arash Perez MD Specimen: SLIDE(S), 9 SLIDES [id number] 07/22/2023 12:22 PM EST [facility] FINAL DIAGNOSIS A. Breast, left, core biopsy ([id number]; 06/19/2023): ---Invasive lobular carcinoma, preliminary [place] grade 1 (of 3), measuring at least 4.5 mm in greatest dimension. ---Please see comment. 07/22/2023 12:22 PM [facility] at 1222 EST Diagnosis Comment Immunoperoxidase studies for estrogen receptor (ER), progesterone receptor (PA), and HER2 were performed at an outside institution and provided for review. Immunostain results for the invasive carcinoma cells are as follows: ER: POSITIVE (80%, strong) PA: POSITIVE (5%, moderate) HER2 IHC: NEGATIVE (0) Controls react as expected 07/22/2023 12:22 PM [facility] Performing Lab Diagnostic interpretation performed at [facility], [address] [place] [address] CLIA# [id number] Furnace Reliner: Amor Eisenberg M.D. 07/22/2023 12:22 PM EST [facility] Blocks or Slides MICROSCOPE SLIDE / Unknown 07/19/2023 4:11 PM EST 07/19/2023 4:10 PM EST Mendoza Yang MD SURGICAL PATHOLOGY Final Result [facility] [address] [place] [address], documented in this encounter Visit Diagnoses Diagnosis Person encountering health services to consult on behalf of another person Other person consulting on behalf of another person documented in this encounter Care Teams Scrap Charger Relationship Specialty Start Date End Date Treasure Chris Semaj PCP - General 01/28/07 08/21/23 Sunny Jenkins MD PCP - General Internal Medicine 08/22/23 Janet Dillard DO Referring Family Medicine 07/14/21 Yvonne Baumann RN [address] [place] [address] [place] [address] Specialty Utility Bill Collection Clerk Hematology/Oncology 09/23/23 04/21/24 Mitch Garcia MD [address] [place] [address] [place] [address] Physician Hematology/Oncology 09/23/23 Hilda Templeton PA-C [address] [place] [address] [address] [place], [place] [id number] Physician Nurse Aide Hematology/Oncology 09/23/23 Deepika Garcia LSW Tire Layer 09/24/[address] [place] [address] [place] [address] Registered Dietitian Nutrition 10/22/23 Nia Snider, RN Specialty Utility Bill Collection Clerk Hematology/Oncology 04/22/24 documented as of this encounter
--- OUTSIDE RECORDS SUMMARY | 2025-04-19 08:34 | XMS_ITS | Encounter Summary ---
Author Organization [facility] Address [address] [place] [address] Care Team Providers Care Wash Oil Pump Operator Name Role Phone Janet Dillard DO Unavailable [phone] Unallocated, Noms Provider Primary Care Provi gaurang Janet Dillard DO Unavailable [phone] Encounter Details Date Type Department Care Team (Late st Contact Info) Description 04/24/2023 Abstract [facility] Family Medicine [address] [place] [phone] Janet Dillard DO [address] [facility] [address] [place] [address] Social History Tobacco Use Types Packs/Day Years [...] on filedocumented in this encounter Care Teams Wash Oil Pump Operator Relationship Specialty Start Date End Date Janet Dillard DO [address] [facility] 200 [place] [address] PCP - ACO Reach 01/17/23 10/01/24 Unallocated, Noms Provider, [place] [address] PCP - General 04/03/23 Janet Dillard DO [address] [facility] 200 [place] [address] PCP - ACO Reach 10/09/24 11/26/24 documented as of this encounter
--- OUTSIDE RECORDS SUMMARY | 2025-04-19 08:34 | XMS_ITS | Encounter Summary ---
Author Organization [facility] Address [address] [place] [address] Care Team Providers Care Client Success Specialist Name Role Phone Janet Dillard DO Primary Care Provider [phone] Janet Dillard DO Unavailable [phone] Unallocated, Noms Provider MD Primary Care Provi gaurang Janet Dillard DO Unavailable [phone] Encounter Details Date Type Department Care Team (Late st Contact Info) Description 01/17/2023 Orders Only [facility] Otolaryngology [address] [facility] [place] [phone] Ban Gil MA Thyroid nodule (Primary Dx) Social History Tobacco Use Types [...] Type Priority Associated Diagnoses Orde r Schedule US thyroid Imaging Routine Thyroid nodule Expected: 01/31/2023 (Approximate), Expires: 01/18/2024 documented as of this encounter Visit Diagnoses Diagnosis Thyroid nodule- Primary Nontoxic uninodular goiter documented in this encounter Care Teams Client Success Specialist Relationship Specialty Start Date End Date Janet Dillard DO PCP - General Family Medicine 01/16/23 04/02/23 Janet Dillard DO [address] [facility] [address] [place] [address] PCP - ACO Reach 01/17/23 10/01/24 Unallocated, Noms Provider, [place] [address] PCP - General 04/03/23 Janet Dillard, [address] [facility] [address] [place] [address] PCP - ACO Reach 10/09/24 11/26/24 documented as of this encounter
--- OUTSIDE RECORDS SUMMARY | 2025-04-19 08:34 | XMS_ITS | Encounter Summary ---
Author Organization [facility] Address [address] [place] [address] Care Team Providers Care Raw Stock Dyeing Machine Tender Name Role Phone Chris Amanda Primary Care Provider [phone] Janet Dillard DO Unavailable UnavailSunny Coates MD Primary Care Provider [phone] Yvonne Baumann RN Unavailable [phone] Mitch Garcia MD Unavailable [phone] Hilda Templeton-C Unavailable [phone] Deepika Garcia Unavailable Unavailable Nona Lomax RD Unavailable [phone] Nia Snider RN Unavailable Unavailable Source Comments In the event this information is protected by the Federal Confidentiality of Alcohol and Drug AbusePatient Records regulations: The Federal rules restrict any use of the information to criminally investigate or prosecute any alcohol or drug abuse patient.[facility] Encounter Details Date Type Department Care Team (Late st Contact Info) Description 07/16/2016 Abstract Thoracic Clinic [address] [place] [address] Smith Perez MD [address] [place] [address] Social History Tobacco Use Types Packs/Day Years [...] EDT Specialty Pharmacy [facility] [address] [place] [address] Pharmacist, [facility]ty[facility] [address] [place] [address] [place] [address] Refill - Kisqali [28DS] C005/1705/17/2025 8:00 AM EDT Procedure Pulmonary Lab [address] [place] [address] Dyspnea and respiratory abnormalities [R06.00, R06.89] 05/17/2025 8:15 AM EDT Procedure Pulmonary Lab [address] [place] [address] Dyspnea and respiratory abnormalities [R06.00, R06.89] 05/17/2025 8:30 AM EDT Office Visit Pulmonary Medicine [address] [place] [address] Dayanna Alatorre APRN.CHEMISTRY SPECIALIST [address] [place] [address] Return in about 1 month (around 05/17/2025). 06/10/2025 1:30 PM EDT Appointment Procedures [address] [place] [address] Debbie Gunn MD [address] [facility] [address] [place], [place] [id number] 07/07/2025 9:00 AM EST Infusion Center Hematology/Oncolo gy [address] [facility] [address] lab 07/14/2025 9:30 AM [facility] Hematology [address] [place] [address] Mitch Garcia MD [address] [facility] [place] [address] Schedule labs prior to Virtual visit with DR Garcia 07/15/2025 9:00 AM [facility] Center Hematology/Oncolo gy [address] [facility] [address] Prolia injection day after RADHA virtual visit per staff message 08/23/2025 10:00 AM EST Office Visit Kidney Medicine [address] [place] [address] Shante Carroll APRN.CHEMISTRY SPECIALIST [address] [facility] [place] [address] 6 month follow up 11/01/2025 2:00 PM EDT Office Visit Rheumatology [address] [place], [place] [id number] Nany Bustillos MD [address] [place] [address] RA documented as of this encounter Visit Diagnoses Not on filedocumented in this encounter Additional Health Concerns Infection Onset Date Last Indicated Resolved Time COVID-19 Rule-Out 03/14/2022 03/14/2022 03/14/2022 4:49 PM EDT documented as of this encounter Care Teams Raw Stock Dyeing Machine Tender Relationship Specialty Start Date End Date Chris Amanda PCP - General 01/28/07 08/21/23 Sunny Jenkins MD PCP - General Internal Medicine 08/22/23 Janet Dillard DO Referring Family Medicine 07/14/21 Yvonne Baumann, RN [address] [place] [address] [place] [address] Specialty Corporation Lawyer Hematology/Oncology 09/23/23 04/21/24 Mitch Garcia MD [address] [place] [address] [place] [address] Physician Hematology/Oncology 09/23/23 Hilda Templeton PALeonelC [address] [place] [address] [place] [address] Physician Automotive Refinisher Hematology/Oncology 09/23/23 Deepika Garcia LSW Pad Tufter 09/24/[address] [place] [address] [place] [address] Registered Dietitian Nutrition 10/22/23 Nia Snider, RN Specialty Corporation Lawyer Hematology/Oncology 04/22/24 documented as of this encounter
--- OUTSIDE RECORDS SUMMARY | 2025-04-19 08:34 | XMS_ITS | Encounter Summary ---
Author Organization [facility] Address [address] [place] [address] Care Team Providers Care Prop Attendant Name Role Phone Janet Dillard DO Unavailable Unavailabl Sunny Stone MD Primary Care Provider [phone] Mitch Garcia MD Unavailable [phone] Deepika Garcia Unavailable Unavailable Nona Lomax RD Unavailable [phone] Nia Snider RN Unavailable Unavailable Source Comments In the event this information is protected by the Federal Confidentiality of Alcohol and Drug AbusePatient Records regulations: The Federal rules restrict any use of the information to criminally investigate or prosecute any alcohol or drug abuse patient.[facility] Encounter Details Date Type Department Care Team (Late st Contact Info) Description 03/19/2025 Patient Msg Pre Anesthesia [address] [place], [place] [id number] Hellen Matias APRN.WEB MANAGER [address] [place] [address] Pre Op Instructions Social History Tobacco Use Types Packs/Day [...] risk 9 01/29/2023 Data from: https://www.neighborhoodatlas.medicine.[facility].edu/. Last address used for calculation Armando [...] AM EDT Specialty Pharmacy [facility] [address] [place], [place] 570514-[address] [place] [address] Pharmacist, Specialtygroup [address] [place] [address] [place] [address] Refill - Kisqali [28DS] C005/1705/17/2025 8:00 AM EDT Procedure Pulmonary Lab [address] [facility] [place] [address] Dyspnea and respiratory abnormalities [R06.00, R06.89] 05/17/2025 8:15 AM EDT Procedure Pulmonary Lab [address] [facility] [place] [address] Dyspnea and respiratory abnormalities [R06.00, R06.89] 05/17/2025 8:30 AM EDT Office Visit Pulmonary Medicine [address] [facility] [place] [address] Dayanna Alatorre, LENA.BOAT JOINER [address] [facility] [place] [address] Return in about 1 month (around 05/17/2025). 06/10/2025 1:30 PM EDT Appointment Procedures [address] [place] [address] Debbie Gunn MD [address] [place] [address] [place] [address] 07/07/2025 9:00 AM [facility] Infusion Center Hematology/Oncolo gy [address] [facility] [place] [address] lab 07/14/2025 9:30 AM EST [facility] Hematology [address] [place] [address] Mitch Garcia MD [address] [place] [address] Schedule labs prior to Virtual visit with DR Garcia 07/15/2025 9:00 AM [facility] Infusion Center Hematology/Oncolo gy [address] [facility] [place] [address] Prolia injection day after RADHA virtual visit per staff message 08/23/2025 10:00 AM EST Office Visit Kidney Medicine [address] [place] [address] Shante Carroll, PILOT TEACHER.BOAT JOINER [address] [facility] [place] [place] [address] 6 month follow up 11/01/2025 2:00 PM EDT Office Visit Rheumatology [address] [facility] [place] [address] Nany Bustillos MD [address] [facility] [place] [address] RA documented as of this encounter Visit Diagnoses Not on filedocumented in this encounter Care Teams Prop Attendant Relationship Specialty Start Date End Date Sunny Jenkins MD PCP - General Internal Medicine 08/22/23 Janet Dillard DO Referring Family Medicine 07/14/21 Mitch Garcia MD [address] [place] [address] [place] [address] Physician Hematology/Oncology 09/23/23 Deepika Garcia LSW Preliminary School Psychologist 09/24/[address] [place] [address] [place] [address] Registered Dietitian Nutrition 10/22/23 Nia Snider, RN Specialty Mineralogy Teacher Hematology/Oncology 04/22/24 documented as of this encounter
--- OUTSIDE RECORDS SUMMARY | 2025-04-19 08:34 | XMS_ITS | Encounter Summary ---
Author Organization [facility] Address [address] [place] [address] Care Team Providers Care Supervisor Kosher Dietary Service Name Role Phone Janet Dillard DO Primary Care Provider [phone] Janet Dillard DO Unavailable [phone] Unallocated, Noms Provider MD Primary Care Provi gaurang Janet Dillard DO Unavailable [phone] Encounter Details Date Type Department Care Team (Late st Contact Info) Description 03/13/2023 Abstract [facility] Otol[facility] [address] [place] [phone] Nikko Astorga DO [address] [place] [address] Social History Tobacco Use Types Packs/Day Years [...] filedocumented in this encounter Care Teams Supervisor Kosher Dietary Service Relationship Specialty Start Date End Date Janet Dillard DO PCP - General Family Medicine 01/16/23 04/02/23 Janet Dillard DO [address] [facility] [address] [place] [phone] PCP - ACO Reach 01/17/23 10/01/24 Unallocated, Noms Provider, [place] [address] PCP - General 04/03/23 Janet Dillard DO [address] [facility] [address] [place] [address] PCP - ACO Reach 10/09/24 11/26/24 documented as of this encounter
--- OUTSIDE RECORDS SUMMARY | 2025-04-19 08:34 | XMS_ITS | Encounter Summary ---
Author Organization [facility] Address [address] [place] [address] Care Team Providers Care Drafting Layout Man Name Role Phone Janet Dillard DO Primary Care Provider Janet Dillard DO Unavailable [phone] Unallocated, Noms Provider MD Primary Care Provi gaurang Janet Dillard DO Unavailable [phone] Encounter Details Date Type Department Care Team (Late st Contact Info) Description 03/05/2023 Abstract [facility] Family Medicine [address] [place] [address] Janet Dillard DO [address] [phone] Social History Tobacco Use Types Packs/Day Years [...] on filedocumented in this encounter Care Teams Drafting Layout Man Relationship Specialty Start Date End Date Janet Dillard DO PCP - General Family Medicine 01/16/23 04/02/23 Janet Dillard DO [address] [facility] [address] [place] [phone] PCP - ACO Reach 01/17/23 10/01/24 Unallocated, Noms Provider, [place] [address] PCP - General 04/03/23 Janet Dillard, [address] [facility] [address] [place] [address] PCP - ACO Reach 10/09/24 11/26/24 documented as of this encounter
--- OUTSIDE RECORDS SUMMARY | 2025-04-19 08:34 | XMS_ITS | Encounter Summary ---
Author Organization [facility] tem Address [id number] [address] [place] [address] Care Team Providers Care City Maintenance Manager Name Role Phone Sunny Jenkins MD Primary Care Provider [phone] Encounter Details Date Type Department Care Team (Late st Contact Info) Description 04/30/2023 Telephone [facility] Physicians Family Medicine [address] [place] [address] [place] [address] Will Dean CMA Social History Tobacco Use Types Packs/Day Years Used Date Smoking Tobacco: Never Smokeless Tobacco: Never Alcohol Use Standard Drinks/Week Comments Yes 0 (1 standard drink = 0.6 oz pur e alcohol) rare PHQ-2 Answer Date Recorded Total Score 0 04/24/2023 Childcare Answer Date Recorded Childcare Unknown 02/04/2019 Employment Answer Date Recorded Employment Unknown 02/04/2019 Purpose - Life Answer Date Recorded Purpose and direction in life Unknown Comments Unknown Sex and Gender Information Value Date Recorded Sex Assigned at Not on file Legal Sex Female 11:30 AM EDT Gender Identity Not on file Sexual Orientation Not on file documented as of this encounter Miscellaneous Notes * Telephone Encounter - Will Dean CMA - 04/30/2023 10:32 AM EDT Patient called into office requesting prescription for Naproxen, not on current medication list. Stated that she thinks it was from ED or [facility]. Patient stated she takes it for her hip. Pain scale is a 10 while walking. Please send to [facility] pharmacy is applicable. * Telephone Encounter - Sunny Jenkins MD - 04/30/2023 10:32 AM EDT Rx/order sent to pharmacy Please call and notify patient. SUNNY Chris MD 05/06/23 * Telephone Encounter - Will Dean CMA - 04/30/2023 10:32 AM EDT Patient was called and notified. documented in this encounter Plan of Treatment Upcoming Encounters Date Type Department Care Team (Late st Contact Info) Description 06/22/2025 9:00 AM EDT Office Visit [facility] [address] [place] [phone] Sunny Jenkins MD [address] [place] [address] documented as of this encounter Visit Diagnoses Not on filedocumented in this encounter Additional Health Concerns Assessment Noted Time PHQ-9 Depression Total Score: 0 04/24/20 23 7:45 AM EDT documented as of this encounter Care Teams City Maintenance Manager Relationship Specialty Start Date End Date Sunny Jenkins MD [address] [place] [address] PCP - General Internal Medicine 04/02/23 documented as of this encounter
--- OUTSIDE RECORDS SUMMARY | 2025-04-19 08:34 | XMS_ITS | Encounter Summary ---
Author Organization [facility] Address [address] [place] [address] Care Team Providers Care Lithographic Photographer Name Role Phone Chris Amanda Primary Care Provider [phone] Janet Dillard DO Unavailable UnavailSunny Coates MD Primary Care Provider [phone] Yovnne Baumann RN Unavailable [phone] Mitch Garcia MD Unavailable [phone] Hilda TempletonC Unavailable [phone] Deepika Garcia Unavailable Unavailable Nona Lomax RD Unavailable [phone] Nia Snider RN Unavailable Unavailable Source Comments In the event this information is protected by the Federal Confidentiality of Alcohol and Drug AbusePatient Records regulations: The Federal rules restrict any use of the information to criminally investigate or prosecute any alcohol or drug abuse patient.[facility] Encounter Details Date Type Department Care Team (Late st Contact Info) Description 08/09/2023 Patient [employer] [facility] [address] [place] [address] Jesus Otoole, [place] [address] [place] [address] Genetic Test Result Social History Tobacco Use Types Packs/Day Years [...] in a senior living (including now)? No 07/30/2023 Area Deprivation Index Answer Date Joaquin rded National Score (1-100), lower number is lower ri sk 92 01/29/2023 State Score (1-10), lower number is lower risk 9 01/29/2023 Data from: https://www.neighborhoodatlas.medicine.[facility].edu/. Last address used for calculation [address] 01/29/2023 Comments No Sex and Gender Information Value Date Recorded Sex Assigned at Female 08/14/2024 10:40 AM EST Legal Sex Female 8:08 AM EST Gender Identity Not on file Sexual Orientation Straight 08/14/2024 10 :40 AM EST documented as of this encounter Functional Status * Are you deaf or do you have serious difficulty hearing? Answer Date of Assessment Author No 07/30/2023 11:49 AM Cassia Sandoval RN * Are you blind or do you have serious difficulty seeing, even when wearing glasses? Answer Date of Assessment Author No 07/30/2023 11:49 AM Cassia Sandoval RN * Do you have serious difficulty walking or climbing stairs? Answer Date of Assessment Author No 07/30/2023 11:49 AM Cassia Sandoval RN * Do you have difficulty dressing or bathing? Answer Date of Assessment Author No 07/30/2023 11:49 AM Cassia Sandoval RN * Because of a physical, mental, or emotional condition, do you have difficulty doing errands alone such as visiting a doctor's office or shopping? Answer Date of Assessment Author No 07/30/2023 11:49 AM Cassia Sandoval RN documented as of this encounter Mental Status * Because of a physical, mental, or emotional condition, do you have serious difficulty concentrating, remembering, or making decisions? Answer Entry Date Author No 07/30/2023 11:49 AM Cassia Sandoval RN documented in this encounter Plan of Treatment Upcoming Encounters Date Type Department Care Team (Late st Contact Info) Description 05/10/2025 7:15 AM EDT Specialty Pharmacy [facility] [address] [place] [address] [address] [place] [address] Pharmacist, Specialtygroup [address] [place] [address] Refill - Kisqali [28DS] C005/1705/17/2025 8:00 AM EDT Procedure Pulmonary Lab 5700 [place] [address] Dyspnea and respiratory abnormalities [R06.00, R06.89] 05/17/2025 8:15 AM EDT Procedure Pulmonary Lab [address] [facility] [place] [address] Dyspnea and respiratory abnormalities [R06.00, R06.89] 05/17/2025 8:30 AM EDT Office Visit Pulmonary Medicine [address] [facility] [place] [address] Dayanna Alatorre APRN.HOSPITAL AIDE [address] [facility] [place] [address] Return in about 1 month (around 05/17/2025). 06/10/2025 1:30 PM EDT Appointment Procedures [address] [place] [address] Debbie Gunn MD [address] [place] [address] [place], [place] [id number] 07/07/2025 9:00 AM [facility] Center Hematology/Oncolo gy [address] [facility] [place] [address] lab 07/14/2025 9:30 AM [facility] Hematology [address] [place] [address] Mitch Garcia MD [address] [place] [address] Schedule labs prior to Virtual visit with DR Garcia 07/15/2025 9:00 AM [facility] Hematology/Oncolo gy [address] [facility] [place] [address] Prolia injection day after RADHA virtual visit per staff message 08/23/2025 10:00 AM EST Office Visit Kidney Medicine [address] [place] [address] Shante Carroll, CLIENT MANAGER.HOSPITAL AIDE [address] [facility] [place] [address] 6 month follow up 11/01/2025 2:00 PM EDT Office Visit Rheumatology [address] [facility] [place], [place] [phone] Nany Bustillos MD [address] [place], [place] [address] RA documented as of this encounter Visit Diagnoses Not on filedocumented in this encounter Care Teams Lithographic Photographer Relationship Specialty Start Date End Date Chris Amanda PCP - General 01/28/07 08/21/23 Sunny Jenkins MD PCP - General Internal Medicine 08/22/23 Janet Dillard DO Referring Family Medicine 07/14/21 Yvonne Baumann RN [address] [place] [address] [place] [address] Specialty Profiler Hand Hematology/Oncology 09/23/23 04/21/24 Mitch Garcia MD [address] [place] [address] [place] [address] Physician Hematology/Oncology 09/23/23 Hilda Templeton, PA-C [address] [place] [address] [place] [address] Physician Body Builder Apprentice Hematology/Oncology 09/23/23 Deepika Garcia LSW Gas Turbine Powerplant Mechanic 09/24/[address] [place] [address] [place] [address] Registered Dietitian Nutrition 10/22/23 Nia Snider, MALORIE Specialty Profiler Hand Hematology/Oncology 04/22/24 documented as of this encounter
--- OUTSIDE RECORDS SUMMARY | 2025-04-19 08:34 | XMS_ITS | Encounter Summary ---
Author Organization [facility] Address [address] [place] [address] Care Team Providers Care Mental Measurements Teacher Name Role Phone Chris Amanda Primary Care Provider [phone] Janet Dillard DO Unavailable UnavailSunny Coates MD Primary Care Provider [phone] Yvonne Baumann RN Unavailable [phone] Mitch Garcia MD Unavailable [phone] Hilda TempletonC Unavailable [phone] Deepika Garcia Unavailable Unavailable Nona Lomax RD Unavailable [phone] Nia Snider RN Unavailable Unavailable Source Comments In the event this information is protected by the Federal Confidentiality of Alcohol and Drug AbusePatient Records regulations: The Federal rules restrict any use of the information to criminally investigate or prosecute any alcohol or drug abuse patient.[facility] Encounter Details Date Type Department Care Team (Late st Contact Info) Description 05/11/2016 Patient Msg Medical Records [address] [place] [address] Provider, [facility] Procedure Social [...] EDT Specialty Pharmacy [facility] [address] [facility] [address] [place] [address] Pharmacist, Specialtygroup [address] [place] [address] [address] [place] [id number] Refill - Kisqali [28DS] C005/1705/17/2025 8:00 AM EDT Procedure Pulmonary Lab [address] [place] [address] Dyspnea and respiratory abnormalities [R06.00, R06.89] 05/17/2025 8:15 AM EDT Procedure Pulmonary Lab [address] [facility] [place] [address] Dyspnea and respiratory abnormalities [R06.00, R06.89] 05/17/2025 8:30 AM EDT Office Visit Pulmonary Medicine [address] [place] [address] Dayanna Alatorre APRN.AMERICAN INDIAN POLICY SPECIALIST [address] [place] [address] Return in about 1 month (around 05/17/2025). 06/10/2025 1:30 PM EDT Appointment Procedures [address] [place] [address] Debbie Gunn MD [address] [facility] [address] [place], [place] [id number] 07/07/2025 9:00 AM EST Infusion Center Hematology/Oncolo gy [address] [place] [address] [place] [address] lab 07/14/2025 9:30 AM EST [facility] Hematology [address] [place] [address] Mitch Garcia MD [address] [facility] [place] [address] Schedule labs prior to Virtual visit with DR Garcia 07/15/2025 9:00 AM EST Infusion Center Hematology/Oncolo gy [address] [place] [address] [place] [address] Prolia injection day after RADHA virtual visit per staff message 08/23/2025 10:00 AM EST Office Visit Kidney Medicine [address] [place] [address] Shante Carroll APRN.AMERICAN INDIAN POLICY SPECIALIST [address] [facility] [address] 6 month follow up 11/01/2025 2:00 PM EDT Office Visit Rheumatology 5700 [place] [address] Nany Bustillos MD [address]00 [place] [address] RA documented as of this encounter Visit Diagnoses Not on filedocumented in this encounter Additional Health Concerns Infection Onset Date Last Indicated Resolved Time COVID-19 Rule-Out 03/14/2022 03/14/2022 03/14/2022 4:49 PM EDT documented as of this encounter Care Teams Mental Measurements Teacher Relationship Specialty Start Date End Date Chris Amanda PCP - General 01/28/07 08/21/23 Sunny Jenkins MD PCP - General Internal Medicine 08/22/23 Janet Dillard DO Referring Family Medicine 07/14/21 Yvonne Baumann RN [address] [place] [address] [place] [address] Specialty Tire Changer Hematology/Oncology 09/23/23 04/21/24 Mitch Garcia MD [address] [place] [address] [place] [address] Physician Hematology/Oncology 09/23/23 Hilda Templeton, PA-C [address] [place] [address] [place] [address] Physician Non Licensed Nuclear Plant Operator Hematology/Oncology 09/23/23 Deepika Garcia LSW Process Development Manager 09/24/[address] [place] [address] [place] [address] Registered Dietitian Nutrition 10/22/23 Nia Snider, MALORIE Specialty Tire Changer Hematology/Oncology 04/22/24 documented as of this encounter
--- OUTSIDE RECORDS SUMMARY | 2025-04-19 08:34 | XMS_ITS | Encounter Summary ---
Author Organization [facility] Address [address] [place] [address] Care Team Providers Care Manager Respiratory Name Role Phone Chris Amanda Primary Care Provider [phone] Janet Dillard DO Unavailable UnavailSunny Coates MD Primary Care Provider [phone] Yvonne Baumann RN Unavailable [phone] Mitch Garcia MD Unavailable [phone] Hilda Templeton-C Unavailable [phone] Deepika Garcia Unavailable Unavailable Nona Lomax RD Unavailable [phone] Nia Snider RN Unavailable Unavailable Source Comments In the event this information is protected by the Federal Confidentiality of Alcohol and Drug AbusePatient Records regulations: The Federal rules restrict any use of the information to criminally investigate or prosecute any alcohol or drug abuse patient.[facility] Encounter Details Date Type Department Care Team (Late st Contact Info) Description 02/02/2018 Get Medical Advice Orthopaedics [address] [id number] Chidi Garcia PA-C [address] [place] [address] RE: Visit Follow Up Question Social History Tobacco Use Types Packs/Day Years [...] EDT Specialty Pharmacy [facility] [address] [place] [address] [id number] [place], [place] [id number] Pharmacist, [facility] [address] [place] [address] [place] [address] Refill - Kisqali [28DS] C005/1705/17/2025 8:00 AM EDT Procedure Pulmonary Lab [address] [place] [address] Dyspnea and respiratory abnormalities [R06.00, R06.89] 05/17/2025 8:15 AM EDT Procedure Pulmonary Lab [address] [place] [address] Dyspnea and respiratory abnormalities [R06.00, R06.89] 05/17/2025 8:30 AM EDT Office Visit Pulmonary Medicine [address] [place] [address] Dayanna Alatorre APRN.RETAIL CONSULTANT [address] [place], [place] [id number] Return in about 1 month (around 05/17/2025). 06/10/2025 1:30 PM EDT Appointment Procedures [address] [facility] [address] Debbie Gunn MD [address] [facility] [address] [place], [place] [id number] 07/07/2025 9:00 AM EST Infusion Center Hematology/Oncolo gy [address] [facility] [place] [address] lab 07/14/2025 9:30 AM EST [facility] Hematology [address] [place] [address] Mitch Garcia MD [address] [place] [address] Schedule labs prior to Virtual visit with DR Garcia 07/15/2025 9:00 AM EST Infusion Center Hematology/Oncolo gy [address] [facility] [place] [address] Prolia injection day after RADHA virtual visit per staff message 08/23/2025 10:00 AM EST Office Visit Kidney Medicine [address] [place] [address] Shante Carroll, LENA.RETAIL CONSULTANT [address] [facility] [place] [address] 6 month follow up 11/01/2025 2:00 PM EDT Office Visit Rheumatology 5700 [place] [address] Nany Bustillos MD [address] [place] [address] RA documented as of this encounter Visit Diagnoses Not on filedocumented in this encounter Additional Health Concerns Infection Onset Date Last Indicated Resolved Time COVID-19 Rule-Out 03/14/2022 03/14/2022 03/14/2022 4:49 PM EDT documented as of this encounter Care Teams Manager Respiratory Relationship Specialty Start Date End Date Chris Amanda PCP - General 01/28/07 08/21/23 Sunny Jenkins MD PCP - General Internal Medicine 08/22/23 Janet Dillard DO Referring Family Medicine 07/14/21 Yvonne Baumann, RN [address] [place] [address] [place] [address] Specialty Fire Prevention Chief Hematology/Oncology 09/23/23 04/21/24 Mitch Garcia MD [address] [place] [address] [place] [address] Physician Hematology/Oncology 09/23/23 Hilda Templeton, PA-C [address] [place] [address] [place] [address] Physician Digester Operator Hematology/Oncology 09/23/23 Deepika Garcia LSW Equity Analyst 09/24/[address] [place] [address] [place] [address] Registered Dietitian Nutrition 10/22/23 Nia Snider, RN Specialty Fire Prevention Chief Hematology/Oncology 04/22/24 documented as of this encounter
--- OUTSIDE RECORDS SUMMARY | 2025-04-19 08:34 | XMS_ITS | Encounter Summary ---
Author Organization [facility] Address [address] [place] [address] Care Team Providers Care Securities Counselor Name Role Phone Chris Amanda Primary Care Provider [phone] Janet Dillard DO Unavailable UnavailSunny Coates MD Primary Care Provider [phone] Yvonne Baumann RN Unavailable [phone] Mitch Garcia MD Unavailable [phone] Hilda TempletonC Unavailable [phone] Deepika Garcia Unavailable Unavailable Nona Lomax RD Unavailable [phone] Nia Snider RN Unavailable Unavailable Source Comments In the event this information is protected by the Federal Confidentiality of Alcohol and Drug AbusePatient Records regulations: The Federal rules restrict any use of the information to criminally investigate or prosecute any alcohol or drug abuse patient.[facility] Encounter Details Date Type Department Care Team (Late st Contact Info) Description 05/22/2016 Patient Msg Medical Records [address] [place] [address] Provider, [facility] Procedure Social [...] EDT Specialty Pharmacy [facility] [address] [place] [address] Pharmacist, [facility] [address] [place] [address] [address] [place] [id number] Refill - Kisqali [28DS] C005/1705/17/2025 8:00 AM EDT Procedure Pulmonary Lab [address] [place] [address] Dyspnea and respiratory abnormalities [R06.00, R06.89] 05/17/2025 8:15 AM EDT Procedure Pulmonary Lab [address] [facility] [place] [address] Dyspnea and respiratory abnormalities [R06.00, R06.89] 05/17/2025 8:30 AM EDT Office Visit Pulmonary Medicine [address] [place] [address] Dayanna Alatorre APRN.MANNEQUIN MAKER [address] [place] [address] Return in about 1 month (around 05/17/2025). 06/10/2025 1:30 PM EDT Appointment Procedures [address] [facility] [place] [address] Debbie Gunn MD [address] [facility] [address] [place], [place] [id number] 07/07/2025 9:00 AM EST Infusion Center Hematology/Oncolo gy [address] [place] [address] [place] [address] lab 07/14/2025 9:30 AM EST [facility] Hematology [address] [place] [address] Mitch Garcia MD [address] [facility] [place] [address] Schedule labs prior to Virtual visit with DR Garcia 07/15/2025 9:00 AM EST Infusion Center Hematology/Oncolo gy [address] [place] [address] [place] [address] Prolia injection day after RADHA virtual visit per staff message 08/23/2025 10:00 AM EST Office Visit Kidney Medicine [address] [place] [address] Shante Craroll APRN.MANNEQUIN MAKER [address] [facility] [place] [address] 6 month follow up 11/01/2025 2:00 PM EDT Office Visit Rheumatology 57[address] [place] [address] Nany Bustillos MD [address] [place] [address] RA documented as of this encounter Visit Diagnoses Not on filedocumented in this encounter Additional Health Concerns Infection Onset Date Last Indicated Resolved Time COVID-19 Rule-Out 03/14/2022 03/14/2022 03/14/2022 4:49 PM EDT documented as of this encounter Care Teams Securities Counselor Relationship Specialty Start Date End Date Chris Amanda PCP - General 01/28/07 08/21/23 Sunny Jenkins MD PCP - General Internal Medicine 08/22/23 Janet Dillard DO Referring Family Medicine 07/14/21 Yvonne Baumann RN [address] [place] [address] [place] [address] Specialty Software Packaging Engineer Hematology/Oncology 09/23/23 04/21/24 Mitch Garcia MD [address] [place] [address] [place] [address] Physician Hematology/Oncology 09/23/23 Hilda Templeton, PA-C [address] [place] [address] [place] [address] Physician Volunteer Fire Fighter Hematology/Oncology 09/23/23 Deepika Garcia LSW Plastics Scientist 09/24/[address] [place] [address] [place] [address] Registered Dietitian Nutrition 10/22/23 Nia Snider, MALORIE Specialty Software Packaging Engineer Hematology/Oncology 04/22/24 documented as of this encounter
--- OUTSIDE RECORDS SUMMARY | 2025-04-19 08:34 | XMS_ITS | Clinical Summary ---
Author Organization [employer] Address [facility] [id number] [address] [place] [address] Care Team Providers Care Commercial Representative Name Role Phone Sunny Jenkins MD Primary Care Provider [phone] Allergies Active Allergy Reactions Criticality Noted Date Comments Adhesive Other (See Comments) 04/02/2023 Adhesive Tape-Silicones Rash Low 07/29/2023 Fentanyl 12/20/2018 Sulfa (Sulfonamide Antibiotics) Rash Low 11/25 Medications cholecalciferol, vitamin D3, 5,000 units tablet Take 1 tablet (5,000 Units total) by mouth in the morning. Active nystatin-triamcin olone (MYCOLOG II) ointmentIndicatio ns:Jessica infection Apply 1 Application topically in the morning and 1 Application before bedtime. 30 g 023 Active acetaminophen (TYLENOL EXTRA STRENGTH) 500 mg tablet Take 2 tablets (1,000 mg total) by mouth every 6 (six) hours as needed for pain. 100 tablet 1 023 Active methotrexate 2.5 mg chemo tablet TAKE 6 TABLETS ONCE A WEEK. 6 tablet 024 Active folic acid (FOLVITE) 1 mg tablet TAKE 1 TABLET BY MOUTH IN THE MORNING. EXCEPT THE DAYS OF TAKING METHOTREXATE. 90 tablet 1 024 Active Lactobacillus acidophilus 500 million cell tablet Take by mouth in the morning. Active metoprolol tartrate (LOPRESSOR) 50 mg tabletIndications :Hypertension, unspecified type Take 1 tablet (50 mg total) by mouth in the morning and 1 tablet (50 mg total) before bedtime. 180 tablet 2 024 Active predniSONE 5 mg tablets,dose packIndications:S eropositive rheumatoid arthritis (CMS-HCC),Hip pain, unspecified laterality,Polyar thralgia One tab in the morning and one evening in the evening. 60 each 024 Active losartan (COZAAR) 50 mg tabletIndications :Hypertension, unspecified type Take 1 tablet (50 mg total) by mouth in the morning. 180 tablet 2 024 Active atorvastatin (LIPITOR) 40 mg tabletIndications :ASCVD (arteriosclerotic cardiovascular disease) TAKE 1 TABLET (40 MG TOTAL) BY MOUTH IN THE MORNING 90 tablet 2 024 Active spironolactone (ALDACTONE) 25 mg tabletIndications :Edema, unspecified type TAKE 1 TABLET (25 MG TOTAL) BY MOUTH IN THE MORNING 90 tablet 2 025 Active naproxen (NAPROSYN) 500 mg tabletIndications :Hip pain, unspecified laterality TAKE 1 TABLET (500 MG TOTAL) BY MOUTH IN THE MORNING AND BEFORE BEDTIME 60 tablet 2 025 Active KLOR-CON M10 10 mEq CR tabletIndications :Edema, unspecified type TAKE 1 TABLET (10 MEQ TOTAL) BY MOUTH IN THE MORNING AND 1 TABLET (10 MEQ TOTAL) BEFORE BEDTIME. 180 tablet 1 025 Active furosemide (LASIX) 20 mg tabletIndications :Edema, unspecified type TAKE 1 TABLET BY MOUTH 2 TIMES A DAY BEFORE MEALS. 180 tablet 1 025 Active nystatin (MYCOSTATIN) creamIndications: Yeast dermatitis Apply 1 Application topically in the morning and 1 Application before bedtime. 30 g 1 Active cefDINIR (OMNICEF) 300 mg capsuleIndication s:Acute recurrent pansinusitis Take 1 capsule (300 mg total) by mouth in the morning and 1 capsule (300 mg total) before bedtime. Do all this for 7 days. 14 capsule 025 2024 Active fluconazole (DIFLUCAN) 150 mg tablet 2024 Discontinued fluconazole (DIFLUCAN) 150 mg tablet Take 1 tablet (150 mg total) by mouth every third day. 2024 Discontinued cefDINIR (OMNICEF) 300 mg capsuleIndication s:Acute recurrent pansinusitis Take 1 capsule (300 mg total) by mouth in the morning and 1 capsule (300 mg total) before bedtime. Do all this for 7 days. 14 capsule 025 2024 Discontinued(R eorder) fluconazole (DIFLUCAN) 150 mg tabletIndications :Vaginal candidiasis Take 1 tablet (150 mg total) by mouth every 3 (three) days for 2 doses. Start at end of antibiotic 2 tablet 025 2024 Active Problems Problem Noted Date Diagnosed Date Seropositive rheumatoid arthritis 01/28/2024 Cancer of overlapping sites of left breast 07/04 Cancer Staging:Pathologic stage from 01/24/2024:Stage IIIA(pT3, pN3a, cM0, G2, ER+, SD+, HER2-) - Signed by Brittany Aponte MD on 01/24/2024 Abnormal glucose 04/24/2023 Severely overweight 04/24/2023 Lower leg edema 04/24/2023 Chronic left hip pain 04/24/2023 Chronic generalized pain 04/24/2023 Spinal stenosis 04/02/2023 Arthritis 04/02/2023 Hypertension 04/02/2023 GERD (gastroesophageal reflux disease) 2 Overview (04/02/2023): Last Assessment & Plan: Assessment: On nexium + hiatal hernia Calculus of kidney 07/06/2021 Overview (04/02/2023): left kidney Abnormal mammogram of left breast 09/12/2020 Severe obesity (BMI >= 40) 09/24/2019 Primary osteoarthritis of both knees 12/23/2017 Resolved Problems Problem Noted Date Diagnosed Date Resolved Date Atrial fibrillation 04/02/2023 04/02/20 23 COPD (chronic obstructive pulmonary disease) 0 04/02/2023 Overview (04/02/2023): Last Assessment & Plan: Assessment: states was told by snowboard instructor that she had SENIOR NET APPLICATION DEVELOPER but another told her she did not have it Does use inhaler + GLOVER and orthopnea Encounters Date Type Department Care Team Description 04/12/2025 Orders Only [facility] [address] [phone] Julian Mathew, Acute recurrent pansinusitis 04/12/2025 [facility] [address] [phone] Merary Resendiz CNA Sinusitis 04/05/2025 1:00 PM EDT Office Visit [facility] Medicine [address] [place] [phone] Julian Mathew, Acute recurrent pansinusitis (Primary Dx); Vaginal candidiasis; Yeast dermatitis 04/05/2025 Travel 03/30/2025 Orders Only [facility] [address] [place] [phone] Merary Resendiz CNA Encounter for screening mammogram for malignant neoplasm of breast 02/17/2025 Telephone [facility] [address] [phone] Cristina Kent CNA 02/16/2025 [facility] [address] [place] [phone] Jesi Gerard APRN-NEY Encounter for screening mammogram for malignant neoplasm of breast (Primary Dx) 02/16/2025 Telephone [facility] Medicine [address] [place] [phone] Emerald Myers CMA 01/20/2025 Refill [facility] Family Medicine [address] [place] [phone] Sunny Jenkins MD Edema, unspecified type from Last 3 Months Immunizations Immunization Administration Dates Next Due COVID-19, mRNA, LNP-S, PF, 100mcg/0.5mL Dose Pneumococcal Conjugate 13-Valent 02/14/2021,12 Pneumococcal Polysaccharide 12/31/2021 Zoster Vaccine Recombinant 04/28/2022,02/14/2021 Family History Medical History Relation Name Comments Arthritis Father Dad Heart disease Father Dad Heart failure Father Dad Hypertension Father Dad Prostate cancer Father Dad Arthritis Mother Mom Hypertension Mother Mom Breast cancer Paternal Aunt Aunt Diabetes Paternal Aunt Aunt Cancer Sister Sister Rectal cancer Sister Sister Stroke Sister Sister Relation Name Status Comments Father Dad Mother Mom Paternal Aunt Aunt Sister Sister Alive Social History Tobacco Use Types Packs/Day Years [...] F) 04/05/2025 1:07 PM EDT Respiratory Rate 18 01/28/2024 10:3 2 AM EDT Oxygen Saturation 96% 04/05/2025 1:07 PM EDT Inhaled Oxygen Concentration - - Weight 120.5 kg (265 lb 9.6 oz) 04/05/2025 1:07 PM EDT Height 157.5 cm (5' 2 ) 06/10/2024 9:21 AM EDT Body Mass Index 48.58 06/10/2024 9:21 AM EDT Plan of Treatment Upcoming Encounters Date Type Department Care Team (Late st Contact Info) Description 06/22/2025 9:00 AM EDT Office Visit [facility] Family Medicine [address] [place] [phone] Sunny Jenkins MD [address], [place] [address] Health Maintenance Due Date Last Done Comments Statin Use: Cardiovascular 1955 Adult BMI Follow Up Plan 1972 DTaP,Tdap and Td Vaccines (1 - Tdap) 1973 COVID-19 Vaccine ( - season) 2024 12/09/2022, 07/19/2021, 11/23/2020 Influenza Vaccine 04/26/2025 Fall Risk Screening 06/10/2025 06/10/2024 Medicare Annual Wellness Visit 06/10/2025 06/10/2024 , 05/14/2023 Adult BMI Screening 04/05/2026 04/05/2025 Depression Screening 04/05/2026 04/05/2025 Tobacco Screening 04/05/2026 04/05/2025 Zoster (Shingles) Vaccine Completed 04/28/2022, Medical Devices Not on file Procedures Procedure Name Priority Date/Time Associated Diagnosis Comments MAMM SCREENING BILATERAL W CAD Routine 03/30/2025 11:36 AM EDT Encounter for screening mammogram for malignant neoplasm of breast from Last 3 Months Results * Mammography screening bilateral with CAD (03/30/2025 11:36 AM EDT) Anatomical Region Laterality Modality Breast Bilateral Mammography Jesi Gerard PAPER COUNTER-LENO SEWER IMG MAMMOGRAPHY ORDERAB LES Final Result from Last 3 Months Insurance MEDIC[place] [id number] Care Teams Commercial Representative Relationship Specialty Start Date End Date Sunny Jenkins MD [address] [facility] [place] [address] PCP - General Internal Medicine 04/02/23
--- OUTSIDE RECORDS SUMMARY | 2025-04-19 08:34 | XMS_ITS | Encounter Summary ---
Author Organization [employer] [facility] tem Address [id number] [address] [place] [address] Care Team Providers Care Balancer Name Role Phone Sunny Jenkins MD Primary Care Provider [phone] Encounter Details Date Type Department Care Team (Late st Contact Info) Description 07/11/2023 Orders Only [facility] - Medical Oncology [address] [place] [phone] Juan David Good MD [address] [place] [address] [address] [place] [address] [id number] Social History Tobacco Use Types Packs/Day Years Used Date Smoking Tobacco: Never Smokeless Tobacco: Never Alcohol Use Standard Drinks/Week Comments Yes 0 (1 standard drink = 0.6 oz pur e alcohol) rare PHQ-2 Answer Date Recorded Total Score 3 05/14/2023 Childcare Answer Date Recorded Childcare Unknown 02/04/2019 [...] Description 06/22/2025 9:00 AM EDT Office Visit [facility] Family Medicine [address] [place] [address] [place] [phone] Sunny Jenkins MD [address] [facility] [phone] documented as of this encounter Visit Diagnoses Not on filedocumented in this encounter Additional Health Concerns Assessment Noted Time PHQ-9 Depression Total Score: 3 05/14/20 23 3:00 PM EDT documented as of this encounter Care Teams Balancer Relationship Specialty Start Date End Date Sunny Jenkins MD [address] [facility] [address] PCP - General Internal Medicine 04/02/23 documented as of this encounter
--- OUTSIDE RECORDS SUMMARY | 2025-04-19 08:34 | XMS_ITS | Encounter Summary ---
Author Organization [facility] Address [address] [place] [address] Care Team Providers Care Hand Splitter Name Role Phone Janet Dillard DO Unavailable Unavailabl Sunny Stone MD Primary Care Provider [phone] Yvonne Baumann RN Unavailable [phone] Mitch Garcia MD Unavailable [phone] Hilda Templeton PA-C Unavailable [phone] Deepika Garcia SENIOR DATA WAREHOUSE ARCHITECT Unavailable Unavailable Nona Lomax RD Unavailable [phone] Nia Snider RN Unavailable Unavailable Source Comments In the event this information is protected by the Federal Confidentiality of Alcohol and Drug AbusePatient Records regulations: The Federal rules restrict any use of the information to criminally investigate or prosecute any alcohol or drug abuse patient.[facility] Encounter Details Date Type Department Care Team (Late st Contact Info) Description 02/26/2024 Get Medical Advice Radiation Oncology [address] [place] [address] Josef Austin MD [address] [place] [address] Radiation schedule Social History Tobacco Use Types Packs/Day Years [...] slept in a halfway (including now)? No 07/30/2023 Area Deprivation Index Answer Date Joaquin rded National Score (1-100), lower number is lower ri sk 92 01/29/2023 State Score (1-10), lower number is lower risk 9 01/29/2023 Data from: https://www.neighborhoodatlas.medicine.[facility].edu/. Last address used for calculation Armando You [...] AM EDT Specialty Pharmacy [facility] [address] [place], [place] [id number]-[id number] [place] [address] Pharmacist, [facility]ty[facility] [address] [place] [address] [place] [address] Refill - Kisqali [28DS] C005/1705/17/2025 8:00 AM EDT Procedure Pulmonary Lab [address] [place] [address] Dyspnea and respiratory abnormalities [R06.00, R06.89] 05/17/2025 8:15 AM EDT Procedure Pulmonary Lab [address] [place] [address] Dyspnea and respiratory abnormalities [R06.00, R06.89] 05/17/2025 8:30 AM EDT Office Visit Pulmonary Medicine [address] [facility] [place] [address] Dayanna Alatorre APRN.CLAIM CLINICIAN [address] [place] [address] Return in about 1 month (around 05/17/2025). 06/10/2025 1:30 PM EDT Appointment Procedures [address] [place] [address] Debbie Gunn MD [address] [facility] [address] [place], [place] [phone]- 07/07/2025 9:00 AM [facility] Center Hematology/Oncolo gy [address] [place] [address] lab 07/14/2025 9:30 AM [facility] Hematology [address] [place] [address] Mitch Garcia MD [address] [place] [address] Schedule labs prior to Virtual visit with DR Garcia 07/15/2025 9:00 AM [facility] Center Hematology/Oncolo gy [address] [facility] [address] Prolia injection day after RADHA virtual visit per staff message 08/23/2025 10:00 AM EST Office Visit Kidney Medicine [address] [place] [address] Shante Carroll, SUPERVISOR BACKFILLING.CLAIM CLINICIAN [address] [facility] [place] [address] 6 month follow up 11/01/2025 2:00 PM EDT Office Visit Rheumatology [address] [place] [address] Nany Bustillos MD [address] [facility] [place] [address] RA documented as of this encounter Visit Diagnoses Not on filedocumented in this encounter Care Teams Hand Splitter Relationship Specialty Start Date End Date Sunny Jenkins MD PCP - General Internal Medicine 08/22/23 Janet Dillard DO Referring Family Medicine 07/14/21 Yvonne Baumann, RN [address] [place] [address] [address] [place], [place] [phone] Specialty Pillar Worker Hematology/Oncology 09/23/23 04/21/24 Mitch Garcia MD [address] [place] [address] [place] [address] Physician Hematology/Oncology 09/23/23 Hilda Templeton, PA-C [address] [place] [address] [place] [address] Physician Barber Or Beauty Shop Manager Hematology/Oncology 09/23/23 Deepika Garcia LSW Spindle Maker 09/24/[address] [place] [address] [place] [address] Registered Dietitian Nutrition 10/22/23 Nia Snider, MALORIE Specialty Pillar Worker Hematology/Oncology 04/22/24 documented as of this encounter
--- OUTSIDE RECORDS SUMMARY | 2025-04-19 08:35 | XMS_ITS | Encounter Summary ---
Author Organization [facility] Address [address] [place] [id number] Care Team Providers Care Table Tender Name Role Phone Janet Dillard DO Unavailable Unavailabl Sunny Stone MD Primary Care Provider [phone] Yvonne Baumann RN Unavailable [phone] Mitch Garcia MD Unavailable [phone] Hilda Templeton PA-C Unavailable [phone] Deepika Garcia Unavailable Unavailable Nona Lomax RD Unavailable [phone] Nia Snider RN Unavailable Unavailable Source Comments In the event this information is protected by the Federal Confidentiality of Alcohol and Drug AbusePatient Records regulations: The Federal rules restrict any use of the information to criminally investigate or prosecute any alcohol or drug abuse patient.[facility] Encounter Details Date Type Department Care Team (Late st Contact Info) Description 04/20/2024 Patient Msg Hematology [address] [place] [address] Provider, [facility] Social History Tobacco Use Types Packs/Day Years [...] place to sleep or slept in a care home (including now)? No 07/30/2023 Area Deprivation Index Answer Date Joaquin rded National Score (1-100), lower number is lower ri sk 92 01/29/2023 State Score (1-10), lower number is lower risk 9 01/29/2023 Data from: https://www.neighborhoodatlas.medicine.[facility].edu/. Last address used for calculation [...] of Assessment Author No 09/05/2023 8:47 AM Cassia Sandoval RN * Do you [...] EDT Specialty [facility] [address] [place], [place] [id number] [place] [address] Pharmacist, [facility] [address] [place] [id number] Refill - Kisqali [28DS] 05/17/2025 8:00 AM EDT Procedure Pulmonary Lab [address] [place] [address] Dyspnea and respiratory abnormalities [R06.00, R06.89] 05/17/2025 8:15 AM EDT Procedure Pulmonary Lab [address] [place] [address] Dyspnea and respiratory abnormalities [R06.00, R06.89] 05/17/2025 8:30 AM EDT Office Visit Pulmonary Medicine [address] [place] [address] Dayanna Alatorre, LENA.SALES REPRESENTATIVE [employer] [address] [facility] [address] Return in about 1 month (around 05/17/2025). 06/10/2025 1:30 PM EDT Appointment Procedures [address] [place] [address] Debbie Gunn MD [address] [place] [address] 07/07/2025 9:00 AM [facility]fusion [facility] Hematology/Oncolo gy [address] [place] [address] lab 07/14/2025 9:30 AM [facility] Hematology [id number] [place] [id number] Mitch Garcia MD [address] [place] [address] Schedule labs prior to Virtual visit with DR Garcia 07/15/2025 9:00 AM [facility] Hematology/Oncolo gy [address] [place] [address] Prolia injection day after RADHA virtual visit per staff message 08/23/2025 10:00 AM EST Office Visit Kidney Medicine [id number] [place] [id number] Shante Carroll, CHEF UNDER.SAL[employer] REPRESENT[employer] [address] [facility] [place] [address] 6 month follow up 11/01/2025 2:00 PM EDT Office Visit Rheumatology [address] [facility] [place], [place] [id number] Nany Bustillos MD [address] [facility] [address] RA documented as of this encounter Visit Diagnoses Not on filedocumented in this encounter Care Teams Table Tender Relationship Specialty Start Date End Date Sunny Jenkins MD PCP - General Internal Medicine 08/22/23 Janet Dillard DO Referring Family Medicine 07/14/21 Yvonne Baumann RN [address] [place] [address] [place] [address] Specialty Game Agent Hematology/Oncology 09/23/23 04/21/24 Mitch Garcia MD [address] [place] [address] [place], [place] [id number] Physician Hematology/Oncology 09/23/23 Hilda Templeton, PA-C [address] [place] [address] [place] [address] Physician Product Test Engineer Hematology/Oncology 09/23/23 Deepika Garcia LSW Business Dean 09/24/[address] [place] [address] [place] [address] Registered Dietitian Nutrition 10/22/23 Nia Snider, RN Specialty Game Agent Hematology/Oncology 04/22/24 documented as of this encounter
--- OUTSIDE RECORDS SUMMARY | 2025-04-19 08:35 | XMS_ITS | Clinical Summary ---
Author Organization [facility] Address [address] [place] [address] Care Team Providers Care Living Coach Name Role Phone Janet Dillard DO Unavailable UnavailSunny Coates MD Primary Care Provider Mitch Garcia MD Unavailable [phone] Deepika Garcia CHILD ABUSE WORKER Unavailable Unavailable Nona Lomax RD Unavailable Nia Snider RN Unavailable Unavailable Allergies Active Allergy Reactions Criticality Noted Date Comments Adhesive Tape-Silicones Rash 07/29/2023 Fentanyl Intolerance High 04/01/2018 Drop in RR and drop in pulse ox to 70% Sulfa (Sulfonamide Antibiotics) Unknown 03/08/2007 Medications * This document contains information received from the source organization and may not represent a complete record from that organization. METOPROLOL 100 MG TAB Take 50 mg by mouth once daily. 0 0 06/01/20 08 Active MULTIVITAMIN ORAL Take 1 Dose by mouth once daily. Active potassium chloride (K-TAB) 10 mEq tablet Take 10 mEq by mouth once daily. Active furosemide (LASIX) 20 mg tablet Take 20 mg by mouth once daily. 03/13/20 18 Active losartan (COZAAR) 50 mg tablet Take 50 mg by mouth once daily. 08/24/20 21 Active esomeprazole magnesium (NEXIUM ORAL) Take 20 mg by mouth once daily. Active atorvastatin (LIPITOR) 20 mg tablet Take 1 tablet by mouth once daily. 30 tablet 2 03/16/20 22 Active spironolacton e (ALDACTONE) 25 mg tablet Take 1 tablet by mouth every afternoon. 11/08/19 24 Active cholecalcifer ol (VITAMIN D-3) 5,000 unit tab Take 5,000 Units by mouth once daily. Active letrozole (FEMARA) 2.5 mg tablet TAKE 1 TABLET BY MOUTH EVERY DAY 90 tablet 1 10/20/19 25 Active ribociclib (KISQALI) 400 mg/day (200 mg x 2) tabIndication s:Invasive lobular carcinoma of breast in female (HCC) Take 2 tablets (400 mg) by mouth once daily for 21 days on, then 7 days off to complete a 28-day treatment cycle. Discard after 60 days from fill date. 42 tablet 3 5 11:39 AM EDT 04/10/20 25 Active cefdinir (OMNICEF) 300 mg capsule Take 300 mg by mouth. 04/12/20 25 025 Active nystatin (MYCOSTATIN) cream Apply 1 application to affected area. 04/05/20 25 Active NAPROXEN ORAL Take by mouth two times a day. 025 Discontinued(Co urse of therapy completed) ribociclib (KISQALI) 400 mg/day (200 mg x 2) tabIndication s:Invasive lobular carcinoma of breast in female (HCC) Take 2 tablets (400 mg) by mouth once daily for 21 days on, then 7 days off to complete a 28-day treatment cycle. Discard after 60 days from fill date. 42 tablet 3 5 11:18 AM EDT 12/22/19 25 025 Discontinued Active Problems Problem Noted Date Diagnosed Date Osteopenia 04/13/2025 [...] On Lasix States went to ED at [place] 01/28 ( records requested) for edema and was advised to increase Lasix and follow up with cardiology. Saw Dr. Dc 02/05- note in Epic No JVD noted Right arm weakness 03/14/2022 COPD (chronic obstructive pulmonary disease) Assessment & Plan (03/19/2025 10:45 AM EDT): Assessment: states was told by greens cutter that she had MOBILE PARAMEDICAL EXAMINER but another told her she did not have it Does not use use inhaler Currently stable Assessment & Plan (01/31/2023 1:08 PM EDT): Assessment: states was told by greens cutter that she had MOBILE PARAMEDICAL EXAMINER but another told her she did not have it Does use inhaler + GLOVER and orthopnea GERD (gastroesophageal reflux disease) Assessment & Plan (03/19/2025 10:45 AM [...] (02/24/2018): Added automatically from request for surgery [id number] Primary osteoarthritis of both knees 12/23/2017 Morbid [...] On statin, managed by PCP Obesity, unspecified Resolved Problems Problem Noted Date Diagnosed Date Resolved Date Atrial tachycardia, paroxysmal 03/14/2022 02/05/2023 Assessment & Plan (01/31/2023 1:05 PM EDT): Assessment: patient states that she had AFIB in past-- on Metoprolol Follows with Dr. Dc States HR 25-120 at home at pulse ox, denies chest pain or palpitations RRR on exam today Hypertensive urgency 03/14/2022 07 022 AF (paroxysmal atrial fibrillation) 12/08/2021 03/14/2022 Encounters Date Type Department Care Team Description 04/16/2025 8:00 AM EDT Office Visit Pulmonary Medicine [address] [place] [address] Boom Mcintosh MD Dyspnea and respiratory abnormalities (Primary Dx); Hiatal hernia; Other idiopathic scoliosis, unspecified spinal region; Class 3 severe obesity with body mass index (BMI) of 45.0 to 49.9 in adult, unspecified obesity type, unspecified whether serious comorbidity present ([facility]) 04/16/2025 7:30 AM EDT Procedure Pulmonary Lab [address] [place] [address] Spirometry 04/14/2025 Orders Only Respiratory [place] [address] [place] [address] Boom Mcintosh MD Dyspnea, unspecified type (Primary Dx) 04/13/2025 2:30 PM EDT Visit (SP) Office Hematology [address] [place] [address] Mitch Garcia MD Invasive lobular carcinoma of breast in female (HCC) (Primary Dx); Bilateral leg edema; Osteopenia of multiple sites 04/13/2025 Travel 04/12/2025 Specialty Pharmacy [facility] [address] [place] [address] Muna Fox, [facility] SPP Oral Oncology/hematology - Medication Refill (Kisqali) 04/09/2025 Refill Hematology [address] [place] [address] Mitch Garcia MD Refill Request 04/05/2025 10:00 AM EDT Infusion Center Hematology/Oncolog y [address] [facility] [place] [place] [address] Invasive lobular carcinoma of breast in female (HCC) (Primary Dx) 04/01/2025 8:38 AM EDT - 04/01/2025 11:59 PM EDT Hospital Encounter [facility] Radiology Ultrasound [address] [place] [address] Stage 3 chronic kidney disease, unspecified whether stage 3a or 3b CKD (HCC) [N18.30] Discharge Disposition: Home 04/01/2025 GI Preprocedure Call [facility] Surgery [address] [place] [address] Chris Timmons DO 03/30/2025 8:30 AM EDT Infusion Center Hematology/Oncolog y [address] [facility] [place] [address] Invasive lobular carcinoma of breast in female (HCC) 03/30/2025 Telephone Hematology [address] [place] [address] Mitch Garcia MD Orders (THAT SPECIAL WOMAN (Mastectomy Supplies) ) 03/30/2025 Telephone Hematology/Oncolog y [address] [facility] [place] [address] Perla Salazar, MALORIE Orders 03/26/2025 Telephone Hematology [address] [place] [address] Mitch Garcia MD permision for fitting/DME 03/19/2025 10:30 AM EDT PAT Pre Anesthesia [address] [facility] [address] [place] [address] Pre-op evaluation (Primary Dx); Primary hypertension; Chronic obstructive pulmonary disease, unspecified COPD type (HCC); Gastroesophageal reflux disease, unspecified whether esophagitis present; Stage 3a chronic kidney disease (HCC); Rheumatoid arthritis, involving unspecified site, unspecified whether rheumatoid factor present (HCC); Pulmonary embolism, other, unspecified chronicity, unspecified whether acute cor pulmonale present (HCC); Palpitations; Morbid obesity (HCC); Mixed hyperlipidemia; Disorder of mitral valve 03/19/2025 Get Medical Advice Hematology [address] [place] [address] Mitch Garcia MD Bloodwork? 03/19/2025 Patient Msg Pre Anesthesia [address] [facility] [address] [place] [address] Hellen Matias APRN.TIE CUTTER Pre Op Instructions 03/17/2025 Travel 03/16/2025 Patient Msg Gastroenterology [address] [place] [address] Provider, [facility] Prep Instructions 03/15/2025 Specialty Pharmacy [facility] [address] [place] [address] Muna Fox RP SPP Oral Oncology/hematology - Medication Refill (Kisqali ) 03/05/2025 11:30 AM EDT Office Visit Plastic Surgery [address] [place] [id number] Andres Man MD Inclusion cyst (Primary Dx) 03/04/2025 Telephone Plastic Surgery [address] [place] [address] Andres Man MD Reschedule Post-op 02/23/2025 10:00 AM EDT - 02/23/2025 11:07 AM EDT Surgery [facility] Surgery [address] [place] [address] Andres Man MD EXCISION BENIGN LESION FROM EARS 1.1 - 2.0 CM 02/23/2025 9:09 AM EDT - 02/23/2025 10:45 AM EDT Hospital Encounter [facility] Surgery [address] [place] [address] Andres Man MD Inclusion cyst [L72.0] Discharge Disposition: Home 02/23/2025 Travel 02/22/2025 Results Follow-Up Kidney Medicine [address] [place] [address] Yue Negro DO 02/19/2025 8:20 AM EDT Office Visit Kidney Medicine [address] [place] [address] Yue Negro DO Stage 3 chronic kidney disease, unspecified whether stage 3a or 3b CKD (HCC) (Primary Dx); Primary hypertension; Invasive lobular carcinoma of breast in female (HCC); Abnormal finding of blood chemistry, unspecified 02/17/2025 Telephone General Surgery [address] [address] [place] [address] Gómez Weston MD Orders; Cement Cutter - Other 02/15/2025 11:10 AM EDT Office Visit General Surgery [address] [place], [place] [address] [place] [address] Gómez Weston MD Difficulty breathing (Primary Dx); Hiatal hernia; Class 3 severe obesity due to excess calories with body mass index (BMI) of 50.0 to 59.9 in adult, unspecified whether serious comorbidity present (HCC); Gastroesophageal reflux disease without esophagitis 02/15/2025 9:45 AM EDT - 02/15/2025 11:59 PM EDT Hospital Encounter Radiology [address] [place] [address] Pain in left hip [M25.552] Discharge Disposition: Home 02/15/2025 9:45 AM EDT Office Visit Orthopaedics [address] [place] [address] Micah Deal DO Primary osteoarthritis of left hip (Primary Dx); Pain in left hip 02/15/2025 9:15 AM EDT Office Visit Plastic Surgery [address] [place] [address] Andres Man MD Painful scar (Primary Dx); Excess skin; Inclusion cyst 02/15/2025 Specialty Pharmacy [facility] [address] [place] [address] Muna Fox RPh SPP Oral Oncology/hematology - Medication Refill (Kisqali ) 02/15/2025 Orders Only Plastic Surgery [address] [place] [address] Andres Man MD Inclusion cyst (Primary Dx) 02/11/2025 Travel 01/19/2025 Specialty Pharmacy [facility] [address] [place] [address] Muna Fox RPh SPP Oral Oncology/hematology - Medication Refill (Kisqali ) from Last 3 Months Immunizations Immunization Administration Dates Next Due COVID-19 original vaccine, f ull dose, monovalent (MODERNA) 12/09/2022 pneumococcal conjugate (PCV1 3) vaccine, 13 valent (PREVNAR 13) 02/14/2021,08/04/2016 pneumococcal polysaccharide (PPV23) vaccine, 23 valent (PNEUMOVAX 23) 12/31/2021 zoster (RZV) vaccine, recombinant (SHINGRIX) 10/2021,02/14/2021 Family History Medical History Relation Comments Cataract Brother Cancer Father prostate Heart Father chf Hypertension Father Lipids Father Prostate Cancer Father Cataract Mother Hypertension Mother Lipids Mother Macular Degen Other Breast Cancer Paternal Aunt Glaucoma Sister Rectal Cancer Sister Stroke Sister Amblyopia No Family History Blindness No Family History Difficulty with anesthesia No Family History Strabismus No Family History Relation Status Comments Brother Father Mother Other Paternal Aunt Sister Alive Social History Tobacco Use Types [...] place to sleep or slept in a jail (including now)? No 07/30/2023 Area Deprivation Index [...] Orientation Straight 08/14/2024 10 :40 AM EST Last Filed Vital Signs Vital Sign Reading Time Taken Comments Blood Pressure 149/63 04/16/2025 7:46 AM EDT Pulse 81 04/16/2025 7:46 AM EDT Temperature 36.4 C (97.6 F) 04/13/2025 2:43 PM EDT Respiratory Rate 18 04/13/2025 2:43 PM EDT Oxygen Saturation 98% 04/16/2025 7:46 AM EDT Inhaled Oxygen Concentration - - Weight 118.2 kg (260 lb 9.3 oz) 04/16/2025 7:46 AM EDT Height 157.5 cm (5' 2 ) 04/16/2025 7:46 AM EDT Body Mass Index 47.66 04/16/2025 7:46 AM EDT Plan of Treatment Upcoming Encounters Date Type Department Care Team (Late st Contact Info) Description 05/10/2025 7:15 AM EDT Specialty Pharmacy [facility] [address] [place], [place] [phone] [place], [place] [id number] Pharmacist, [facility] [address] [place] [address] [place], [place] [id number] Refill - Kisqali [28DS] C005/1705/17/2025 8:00 AM EDT Procedure Pulmonary Lab [address] [place], [place] [address] Dyspnea and respiratory abnormalities [R06.00, R06.89] 05/17/2025 8:15 AM EDT Procedure Pulmonary Lab [address] [facility] [place] [address] Dyspnea and respiratory abnormalities [R06.00, R06.89] 05/17/2025 8:30 AM EDT Office Visit Pulmonary Medicine [address] [facility] [place] [address] Dayanna Alatorre APRN.CUPOLA TAPPER HELPER [address] [place], [place] [phone] Return in about 1 month (around 05/17/2025). 06/10/2025 1:30 PM EDT Appointment Procedures [address] [facility] [place] [address] Debbie Gunn MD [address] [facility] [address] [place], [place] [id number] 07/07/2025 9:00 AM EST Infusion Center Hematology/Oncolo gy [address] [place] [address] lab 07/14/2025 9:30 AM EST [facility] Hematology [address] [place] [address] Mitch Garcia MD [address] [place] [address] Schedule labs prior to Virtual visit with DR Garcia 07/15/2025 9:00 AM EST Infusion Center Hematology/Oncolo gy [address] [facility] [place] [address] Prolia injection day after RADHA virtual visit per staff message 08/23/2025 10:00 AM EST Office Visit Kidney Medicine [address] [place] [address] Shante Carroll APRN.CUPOLA TAPPER HELPER [address] [facility] [place] [address] 6 month follow up 11/01/2025 2:00 PM EDT Office Visit Rheumatology [address] [facility] [place] [address] Nany Bustillos MD [address] [place] [address] RA Health Maintenance Due Date Last Done Comments Annual PCP Team Chronic Dise ase Visit 1972 Anxiety Screening 1972 Depression Screening 1972 DTaP,Tdap,Td Vaccine (1 - Tdap) 1973 CT Colonography 11/04/1999 Cologuard (FIT-DNA) 11/04/1999 Fecal Occult Blood 11/04/1999 Sigmoidoscopy 11/04/1999 RSV Vaccine (1 - Risk 60-74 years 1-dose series) 2014 Medicare Annual Wellness Visit 10/25/2019 Bone Density Screening 11/04/2019 Advance Directive Discussion 08/26/2024 Influenza Vaccine (#1) 2025 Hemoglobin/Hematocrit 03/30/2026 03/30/2025 , 12/24/2024, 09/11/2024, Additional history exists Mammogram Screening 03/30/2026 03/30/2025, 03/30/2025, 03/05/2025, Additional history exists Serum Creatinine 03/30/2026 03/30/2025, 08/2024, 09/11/2024, Additional history exists Colonoscopy 02/12/2028 02/11/2023, 06/27, 07/23/2016, Additional history exists Colorectal Cancer Screening 02/12/2028 Diabetes Screening 03/30/2028 03/30/2025, 0 12/24/2024, 09/11/2024, Additional history exists Lipid Screening 04/24/2028 04/24/2023, 11/08/2022 Pneumococcal Vaccine: 50+ Completed 2021, 02/14/2021, 08/04/2016 Shingrix Vaccine Completed 04/28/2022, 02/14/2021 Hepatitis C Screening Completed 01/21/2024 Medical Devices Implanted Type Area Embossed Or Impressed Lettering Painter Device Identifier Shelf Expiration Date Model / Serial / Lot Cement Simplex P Bone Radiopaque Full Dose - [id number] Implanted:Qty : 1 on 03/31/2018 at [facility] Cement / Putty Right: Bone - Knee ANTONI 08/25/2020 [id number] / / [id number] Cement Simplex P Bone Radiopaque Full Dose - [id number] Implanted:Qty : 2 on 03/31/2018 at [facility] Cement / Putty Left: Bone - Knee ANTONI 08/25/2020 [id number] / / [id number] Cement Simplex P Bone Radiopaque Full Dose - [id number] Implanted:Qty : 1 on 03/31/2018 at [facility] Cement / Putty Right: Bone - Knee ANTONI 08/25/2020 [id number] / / [id number] Cca0t0.165 [facility] [id number] Implanted:Qty : 1 on 06/02/2024 by Johanne Shepherd MD at [facility] Intraocular Lens Left: Eye [employer] 11/27/2026 CCA0T0.165 / [id number] Cca0t0.130 Nito Kaba - [id number] Implanted:Qty : 1 on 06/17/2024 at [facility] Intraocular Lens Right: Eye [employer] 11/10/2026 CCA0T0.130 / [id number] / Stem Triathlon 12mm Cocr 50mm Femoral Cemented Total Stabilized Knee - [id number] Implanted:Qty : 1 on 03/31/2018 at [facility] Joint - Knee Right: Bone - Knee [employer] 03/02/2023 [id number] / / [id number] Insert Triathlon 4 X3 9mm Tibial Posterior Stabilize Knee - [id number] Implanted:Qty : 1 on 03/31/2018 at [facility] Joint - Knee Right: Bone - Knee [employer] 09/04/2022 [id number] / / [id number] Component Triathlon 33mm X3 9mm Patellar Symmetric Knee Superior - [id number] Implanted:Qty : 1 on 03/31/2018 at [facility] Joint - Knee Left: Bone - Knee [employer] 10/06/2022 [id number]-[id number]-339 / / [id number] Insert Triathlon 4 X3 11mm Tibial Bearing Posterior Stabilize Knee - [id number] Implanted:Qty : 1 on 03/31/2018 at [facility] Joint - Knee Left: Bone - Knee [employer] 09/11/2022 [id number] / / [id number] Component Triathlon 33mm X3 9mm Patellar Symmetric Knee Superior - [id number] Implanted:Qty : 1 on 03/31/2018 at [facility] Joint - Knee Right: Bone - Knee [employer] 08/08/2022 5550-L-339 / / [id number] Component Triathlon 4 Femoral Cemented Posterior Stabilize Knee Right - [id number] Implanted:Qty : 1 on 03/31/2018 at [facility] Joint - Knee Right: Bone - Knee [employer] 01/07/2023 [id number] / / [id number] Component Triathlon 4 Femoral Cemented Posterior Stabilize Knee Left - [id number] Implanted:Qty : 1 on 03/31/2018 at [facility] Joint Left: Bone - Knee [employer] 12/27/2022 [id number] / / [id number] Baseplate Triathlon 4 Venetia Cocr Tibial Total Stabilize Cemented Knee - [id number] Implanted:Qty : 1 on 03/31/2018 at [facility] Plate Left: Bone - Knee [employer] 02/19/2023 [id number] / / [id number] Baseplate Triathlon 4 Venetia Cocr Tibial Total Stabilize Cemented Knee - [id number] Implanted:Qty : 1 on 03/31/2018 at [facility] Plate Right: Bone - Knee [employer] 01/27/2023 [id number] / / [id number] Screw Lcp 6.5mm 8mm Partial Thread Stainless Steel 45mm 32mm Bone Large - [id number] Implanted:Qty : 1 on 03/31/2018 at [facility] Screw Right: Bone - Knee [employer] [id number] / / Washer Lcp 13mm 6.6mm Stainless Steel Orthopedic 4.5-7.3mm Screw Nonsterile - [id number] Implanted:Qty : 2 on 03/31/2018 at [facility] Screw Right: Bone - Knee [employer] 219.99 / / Screw Lcp 6.5mm 8mm Full Thread Stainless Steel 35mm Bone Large Hexagonal - [id number] Implanted:Qty : 1 on 03/31/2018 at [facility] Screw Right: Bone - Knee [employer] 218.035 / / Procedures Procedure Name Priority Date/Time Associated Diagnosis Comments SPIROMETRY WITH DILATOR IF OBSTRUCTED Routine 04/16/2025 7:25 AM EDT Dyspnea, unspecified type US KIDNEY/BLADDER Routine 04/01/2025 9:2 9 AM EDT Stage 3 chronic kidney disease, unspecified whether stage 3a or 3b CKD (HCC) COMPREHENSIVE METABOLIC PANEL Routine 03/30/2025 9:12 AM EDT Invasive lobular carcinoma of breast in female (HCC) CBC + DIFF Routine 03/30/2025 9:11 AM EDT Invasive lobular carcinoma of breast in female (HCC) PT ED DIGESTIVE DISEASE 03/03/2025 PT ED PATIENT INFORMATION 03/03/2025 SURGICAL PATHOLOGY Routine 02/23/2025 10 :06 AM EDT Inclusion cyst INT REPAIR FACE,EAR,EYE 2.6-5CM 02/23/2025 9:30 AM EDT Inclusion cyst REM LESION FACE,EAR,EYE 1.1-2 CM 02/23/2025 9:30 AM EDT Inclusion cyst PROTEIN CREATININE RATIO Routine 02/19/2025 9:01 AM EDT Stage 3 chronic kidney disease, unspecified whether stage 3a or 3b CKD (HCC) Primary hypertension ALBUMIN/CREATININE RATIO, URINE Routine 02/19/2025 9:01 AM EDT Stage 3 chronic kidney disease, unspecified whether stage 3a or 3b CKD (HCC) Primary hypertension UA DIP, URINE (POC) Routine 02/19/2025 8:22 AM EDT ARTHROCENTESIS ASPIR&/INJ MAJOR JT/BURSA W/US Routine 02/15/2025 2:17 PM EDT Primary osteoarthritis of left hip US HIP-INJECTION LT (POC) KELLY USE ONLY Routine 02/15/2025 10:19 AM EDT Primary osteoarthritis of left hip XR HIP GENERAL 3V PELV/AP/LAT LEFT Routine 02/15/2025 10:02 AM EDT Pain in left hip HEPATITIS C ANTIBODY IA WITH CONFIRMATION Routine 01/21/2024 1:46 PM EDT Invasive lobular carcinoma of breast in female (HCC) Elevated transaminase level COLONOSCOPY SCREENING Routine 02/11/2023 10:45 AM EDT Screening for colon cancer from Last 3 Months or Most Recently Relevant to Health Maintenance Results * SPIROMETRY WITH DILATOR IF OBSTRUCTED [...] ULN (L/S) 1.09 L/S PULMONARY FUNCTION LAB HMQ61-14% PRE (L/S) 1.53 L/S PULMONARY FUNCTION LAB UCZ08-01% PREDICTED (L/S) 1.74 L/S PULMONARY FUNCTION LAB VJW13-03% LLN (L/S) 0.80 L/S PULMONARY FUNCTION LAB PEF PRE (L/S) 4.16 L/S PULMON SHANICE FUNCTION LAB PEF LLN (L/S) 3.61 L/S PULMON SHANICE FUNCTION LAB PEF ULN (L/S) 6.72 L/S PULMON SHANICE FUNCTION LAB FET PRE (S) 6.41 S PULMONAR Y FUNCTION LAB 04/16/2025 7:25 AM EDT Narrative PULMONARY FUNCTION LAB - 04/16/2025 9:54 AM EDT [facility] [address] [facility] [place], [place] [address] Test Date: 2025-04-16 Pat Name: YUE CAPUTO Department: Room: Gender: Female Real Estate Developer: : 1955 Requested By: Melonie Paz MD Order Number: [id number] Reading MD: Melonie Paz MD Interpretive Statements Current ATS/ERS acceptability and repeatability standards for spirometry met. Start of test and EOFE criteria met. //FP IMPRESSION: Spirometry is normal. Electronically Signed On 04-16-2025 09:54:21 EDT by Melonie Paz MD ID: [id number] Name: YUE CAPUTO Race: White Ht: 61.02 in Wt: 260.59 lbs Age: 69 Gender: Female : 1955 Dx: Dyspnea and respiratory abnormalities_ Smoking Hx: Non-smoker Doctor: BOOM MCINTOSH Test Date: 04/16/2025 Site: [facility] Tech: Leonard Cornejo PRE-BRONCH POST-BRONCH Mookie LLN Pred ULN %Pred ZScore Mookie %Pred %Chg ZScore SPIROMETRY FVC 2.06 1.71 2.42 3.15 84 -0.84 FEV1 1.62 1.33 1.91 2.45 84 -0.84 FEV1/FVC 0.79 0.66 0.79 0.90 98 -0.12 FEFMax 4.16 3.61 5.17 6.72 80 -1.06 FEF50 2.52 1.24 2.85 4.46 88 -0.34 FIF50 2.48 FEF50/FIF50 1.01 90-100 FIVC 1.98 IMT77-87 1.53 0.80 1.74 3.07 87 -0.32 ExpiredTime 6.41 TimeToFEFMax 0.13 LESLEY 0.10 VolExtrap% 5 Comments: Current ATS/ERS acceptability and repeatability standards for spirometry met. Start of test and EOFE criteria met. //FP us Boom Mcintosh MD SCHEDULED PROCEDURES Final Resul t PULMONARY FUNCTION LAB [address] [place] [address] * US KIDNEY/BLADDER (04/01/2025 9:29 AM EDT) Anatomical Region Laterality Modality Abdomen Ultrasound 04/01/2025 9:29 AM EDT Impressions 04/04/2025 12:20 PM EDT IMPRESSION: No hydronephrosis. Software Engineer Mobile: BEA Transcribe Date/Time: Apr 04 2025 12:16P Dictated by : LINDA MARCIAL MD This examination was interpreted and the report reviewed and electronically signed by: LINDA MARCIAL MD on Apr 04 2025 12:18PM EST Narrative 04/04/2025 12:20 PM EDT * * *Final Report* * * DATE OF EXAM: Apr 01 2025 9:29AM [facility] 1055 - US KIDNEY/BLADDER / PROCEDURE REASON: Stage 3 chronic kidney disease, unspecified whether stage 3a or 3b CKD (HCC) * * * * Physician Interpretation * * * * EXAMINATION: RENAL ULTRASOUND CLINICAL HISTORY: Stage 3 chronic kidney disease, unspecified whether stage 3a or 3b CKD (HCC) TECHNIQUE: Sonography of the kidneys and urinary bladder was performed. Images were obtained and stored in a permanent archive. MQ: [id number] COMPARISON: Outside hospital CT 01/08/2024 RESULT: Right Kidney: -Renal length: 9.3 cm -Parenchyma: Normal parenchymal echogenicity. Normal parenchymal thickness. -Collecting system: No hydronephrosis. -Calculus: No echogenic, shadowing calculus. -Lesion: None. Left Kidney: -Renal length: 10.3 cm -Parenchyma: Normal parenchymal echogenicity. Normal parenchymal thickness. -Collecting system: No hydronephrosis. -Calculus: No echogenic, shadowing calculus. -Lesion: None. Bladder: Normal sonographic appearance. Procedure Note Provider, [facility] - 04/04/2025 * * *Final Report* * * DATE OF EXAM: Apr 01 2025 9:29AM [facility] 1055 - US KIDNEY/BLADDER / PROCEDURE REASON: Stage 3 chronic kidney disease, unspecified whether stage 3a or 3b CKD (HCC) * * * * Physician Interpretation * * * * EXAMINATION: RENAL ULTRASOUND CLINICAL HISTORY: Stage 3 chronic kidney disease, unspecified whether stage 3a or 3b CKD (HCC) TECHNIQUE: Sonography of the kidneys and urinary bladder was performed. Images were obtained and stored in a permanent archive. MQ: [id number] COMPARISON: Outside hospital CT 01/08/2024 RESULT: Right Kidney: -Renal length: 9.3 cm -Parenchyma: Normal parenchymal echogenicity. Normal parenchymal thickness. -Collecting system: No hydronephrosis. -Calculus: No echogenic, shadowing calculus. -Lesion: None. Left Kidney: -Renal length: 10.3 cm -Parenchyma: Normal parenchymal echogenicity. Normal parenchymal thickness. -Collecting system: No hydronephrosis. -Calculus: No echogenic, shadowing calculus. -Lesion: None. Bladder: Normal sonographic appearance. IMPRESSION IMPRESSION: No hydronephrosis. Software Engineer Mobile: PSCB Transcribe Date/Time: Apr 04 2025 12:16P Dictated by : LINDA MARCIAL MD This examination was interpreted and the report reviewed and electronically signed by: LINDA AMRCIAL MD on Apr 04 2025 12:18PM EST us Yue Negro DO US-PAMA Final Result * (ABNORMAL) COMPREHENSIVE METABOLIC PANEL (03/30/2025 9:12 AM EDT) Protein, Total 6.9 6.3 - 8.0 g/dL 03/30/2025 10:31 AM EDT [facility] Albumin 4.0 3.9 - 4.9 g/dL 03/30/2025 10:31 AM EDT [facility] Calcium, Total 9.5 8.5 - 10.2 mg/dL 03/30/2025 10:31 AM EDT [facility] Bilirubin, Total 0.6 0.2 - 1.3 mg/dL 03/30/2025 10:31 AM EDT [facility] Alkaline Phosphatase 105 34 - 123 U/L 03/30/2025 10:31 AM EDT [facility] AST 15 13 - 35 U/L 03/30/2025 10:31 AM EDT [facility] ALT 19 7 - 38 U/L 03/30/2025 10:31 AM EDT [facility] Glucose 140(H) 74 - 99 mg/dL 03/30/2025 10:31 AM [facility] Comment: The [place] Diabetes Association (ADA) provides guidance for cutoff [...] Standards of Medical Care in Diabetes 2016, [place] Diabetes Association. Diabetes Care. 2016.39(Suppl 1). BUN 18 7 - 21 mg/dL 03/30/2025 10:31 AM [facility] Creatinine 1.48(H) 0.58 - 0.96 mg/dL 03/30/2025 10:31 AM [facility] Sodium 137 136 - 144 mmol/L 03/30/2025 10:31 AM [facility] Potassium 4.5 3.7 - 5.1 mmol/L 03/30/2025 10:31 AM [facility] Chloride 101 98 - 107 mmol/L 03/30/2025 10:31 AM [facility] CO2 25 22 - 30 mmol/L 03/30/2025 10:31 AM [facility] Anion Gap 11 8 - 15 mmol/L 03/30/2025 10:31 AM [facility] Estimated Glomerular Filtration Rate 38(L) >=60 mL/min/1. 73m 03/30/2025 10:31 AM [facility] Comment:Estimated Glomerular Filtration Rate (eGFR) is calculated using the 2020 CKD-EPI creatinine equation. This equation utilizes serum creatinine, sex, and age as parameters. The creatinine assay has traceable calibration to isotope dilution- mass spectrometry. Refer to KDIGO guidelines for clinical interpretation. In patients with unstable renal function, e.g. those with acute kidney injury, the eGFR may not accurately reflect actual GFR. Blood BLOOD SPECIMEN / Unknown Venipuncture / Unknown 03/30/2025 9:12 AM EDT 03/30/2025 9:12 AM EDT us Mitch Garcia MD LABORATORY Final Result [facility] [address] [place] [address] * (ABNORMAL) COMPLETE BLOOD COUNT AND DIFFERENTIAL (03/30/2025 9:11 AM EDT) WBC 3.64(L) 3.70 - 11.00 k/uL 03/30/2025 9:33 AM EDT [facility] RBC 3.67(L) 3.90 - 5.20 m/uL 03/30/2025 9:33 AM EDT [facility] Hemoglobin 12.8 11.5 - 15.5 g/dL 03/30/2025 9:33 AM EDT [facility] Hematocrit 38.1 36.0 - 46.0 % 03/30/2025 9:33 AM EDT [facility] MCV 103.8(H) 80.0 - 100.0 fL 03/30/2025 9:33 AM EDT [facility] MCH 34.9(H) 26.0 - 34.0 pg 03/30/2025 9:33 AM EDT [facility] MCHC 33.6 30.5 - 36.0 g/dL 03/30/2025 9:33 AM EDT [facility] RDW-CV 14.6 11.5 - 15.0 % 03/30/2025 9:33 AM EDT [facility] Platelet Count 346 150 - 400 k/uL 03/30/2025 9:33 AM EDT [facility] MPV 9.0 9.0 - 12.7 fL 03/30/2025 9:33 AM EDT [facility] Neutrophils % 71.1 % 03/30/2025 9:33 AM EDT [facility] Abs Neut 2.59 1.45 - 7.50 k/uL 03/30/2025 9:33 AM EDT [facility] Lymphocytes % 21.2 % 03/30/2025 9:33 AM EDT [facility] Abs Lymph 0.77(L) 1.00 - 4.00 k/uL 03/30/2025 9:33 AM EDT [facility] Monocytes % 4.9 % 03/30/2025 9:33 AM EDT [facility] Abs Sheridan 0.18 <0.87 k/uL 03/30/2025 9:33 AM EDT [facility] Eosinophils % 1.4 % 03/30/2025 9:33 AM EDT [facility] Abs Eosin 0.05 <0.46 k/uL 03/30/2025 9:33 AM EDT [facility] Basophils % 1.1 % 03/30/2025 9:33 AM EDT [facility] Abs Baso 0.04 <0.11 k/uL 03/30/2025 9:33 AM EDT [facility] Immature Granulocytes % 0.3 % 03/30/2025 9:33 AM EDT [facility] Abs Immature Gran <0.03 <0.10 k/uL 03/30/2025 9:33 AM EDT [facility] NRBC 0.0 /100 WBC 03/30/2025 9:33 AM EDT [facility] Absolute nRBC <0.01 <0.01 k/uL 03/30/2025 9:33 AM EDT [facility] Diff Type Auto 03/30/2025 9:33 AM T [facility] Blood BLOOD SPECIMEN / Unknown Venipuncture / Unknown 03/30/2025 9:11 AM EDT 03/30/2025 9:12 AM EDT us Mitch Garcia MD LABORATORY Final Result [facility] [address] [place] [address] * PT ED PATIENT INFORMATION (03/03/2025) 03/03/2025 Narrative ANGELITA - 04/03/2025 Provider UMBEL your patient YUE CAPUTO has not started their Angelita program, time has . Angelita program: PATIENT SAFETY INSTRUCTIONS FOR HEALTHCARE SETTINGS us Chris Timmons DO ANGELITA Final Result Performing Organization Address [facility] Co de Phone Number ANGELITA * PT ED DIGESTIVE DISEASE (03/03/2025) 03/03/2025 Narrative ANGELITA - 04/03/2025 Provider UMBEL your patient YUE CAPUTO has not started their Angelita program, time has . Angelita program: UPPER GI ENDOSCOPY (EGD) us Chris Timmons DO ANGELITA Final Result Performing Organization Address [facility] Co de Phone Number ANGELITA * SURGICAL PATHOLOGY (02/23/2025 10:06 AM EDT) Case Report Surgical Pathology Report Case: [id number] Authorizing Provider: Andres Man MD Collected: 02/23/2025 10:06 AM Ordering Location: [facility] Surgery Received: 02/23/2025 10:10 AM Pathologist: Rosa Whyte MD Specimen: Cyst, Skin, Excision, cyst - left cheek 02/28/2025 11:21 PM EDT [facility] FINAL DIAGNOSIS A. Skin, left cheek, excision: - Epidermal inclusion cyst. MP/kr 02/25/2025 02/28/2025 11:21 PM EDT [facility] at 2321 EDT Gross Description A. Cyst, Skin, Excision Received in formalin is an unoriented elliptical segment of skin and subcutaneous tissue measuring 2.1 x 2.0 x 1.5 cm. The skin surface is grossly unremarkable. The specimen does resemble a ruptured cyst. A insurance service representative section is submitted in one cassette. BC February 23, 2025 1:31 PM Gross examination performed at [facility], [address] [place] [address] 02/28/2025 11:21 PM EDT [facility] Clinical History Pre-op diagnosis: Inclusion cyst [L72.0] 02/28/2025 11:21 PM EDT [facility] Performing Lab Diagnostic interpretation performed at: [facility], [address] [place] [address], [facility] [place] [address] CLIA# [id number] Teacher Theater Arts: Amor Eisenberg MD 02/28/2025 11:21 PM EDT [facility] Disclaimer Laboratory Developed Test (LDT) Disclaimer: Performance characteristics of immunohistochemica l, immunofluorescent, and chromogenic in-situ hybridization tests have been determined by the performing laboratory within [facility]'s [facility] Pathology and Laboratory Medicine Department ([facility], [facility], [facility], [facility], [facility], [facility], or [facility]) in a manner consistent with CLIA requirements. One or more of these tests may not have been cleared or approved by the FDA. [facility] is regulated under CLIA as qualified to perform high-complexity testing. These tests are used for clinical purposes. These should not be regarded as investigational or for research. Positive and negative controls stain appropriately. 02/28/2025 11:21 PM EDT [facility] Tissue EXCISION OF SKIN CYST / Unknown 02/23/2025 10:06 AM EDT 02/23/2025 10:10 AM EDT Comment:Pre-op diagnosis: Inclusion cyst [L72.0] J Adryan Man MD SURGICAL PATHOLOGY Final Re sult [facility] [address] [place] [address] Desk [place] [id number], [place] * (ABNORMAL) PROTEIN / CREATININE RATIO (02/19/2025 9:01 AM EDT) Protein, Urine Random 8 0 - 20 mg/dL 02/19/2025 7:33 PM EDT [facility] Creatinine, Ur Random (UCRR) 52.7 20.0 - 300.0 mg/dL 02/19/2025 7:33 PM EDT [facility] Protein/Creat Ratio 0.15(H) <0.15 mg/mg 02/19/2025 7:33 PM EDT [facility] Comment: Adult Proteinuria Categories: <0.15 mg/mg is considered normal to mildly increased 0.15 - 0.50 mg/mg is considered moderately increased >0.50 mg/mg is considered severely increased KDIGO. (2013). KDIGO 2012 Clinical Practice Guideline for the Evaluation and Management of Chronic Kidney Disease. Official Journal of the International Society of Nephrology, 3(1), 1-150. Urine URINE SPECIMEN / Unknown Non Blood / Unknown 02/19/2025 9:01 AM EDT 02/19/2025 11:29 AM EDT us Yue Negro DO LABORATORY Final Result [facility] [address] [facility] [place] [id number], [place] * ALBUMIN/CREATININE RATIO, URINE (02/19/2025 9:01 AM EDT) Creatinine, Ur Random (UCRR) 52.7 20.0 - 300.0 mg/dL 02/19/2025 7:33 PM EDT [facility] Albumin, Urine Random <12.0 mg/L 02/19/2025 7:33 PM EDT [facility] Albumin/Creat Ratio <23 <30 mg/g 02/19/2025 7:33 PM EDT [facility] Comment: Adult Male and Female Nephrotic Criteria: <30 mg/g is considered normal to mildly increased 30-300 mg/g is considered moderately increased >300 mg/g is considered severely increased KDIGO. (2013). KDIGO 2012 Clinical Practice Guideline for the Evaluation and Management of Chronic Kidney Disease. Official Journal of the International Society of Nephrology, 3(1), 1-150. Urine URINE SPECIMEN / Unknown Non Blood / Unknown 02/19/2025 9:01 AM EDT 02/19/2025 11:29 AM EDT us Yue Deitzer DO LABORATORY Final Result Performing Organization Address City/[facility]/ZIP Co de Phone Number [facility] [address] [address], [place] * (ABNORMAL) UA DIP, URINE (POC) (02/19/2025 8:22 AM EDT) GLUCOSE UA (POCT) Negative Negative mg/dL [facility] BILIRUBIN UA (POCT) Negative Negative [facility] KETONE UA (POCT) Negative Negative mg/dL [facility] SPECIFIC GRAVITY UA (POCT) 1.015 1.005 - 1.030 [facility] HEMOGLOBIN/BLOOD UA (POCT) Negative Negative [facility] PH UA (POCT) 5.5 4.5 - 8.0 [facility] PROTEIN UA (POCT) Negative Negative mg/dL [facility] UROBILINOGEN UA (POCT) 0.2 Normal E.U./dL [facility] NITRITE UA (POCT) Negative Negative [facility] LEUKOCYTES UA (POCT) Small(A) Negative [facility] COLOR UA (POCT) Yellow [facility] CLARITY UA (POCT) Clear [facility] 02/19/2025 8:22 AM EDT Narrative [facility] POINT OF CARE - 02/19/2025 8:22 AM EDT Location:[facility], [address], [place], [place], [address] us Yue Deitzer DO POC TESTING Final Result [facility] POINT OF CARE [facility] [address] [place], [place] * ARTHROCENTESIS ASPIR&/INJ MAJOR JT/BURSA W/US (02/15/2025 2:17 PM EDT) Narrative Micah Deal, - 02/15/2025 2:17 PM EDT Micah Deal, DO 02/15/2025 2:18 PM Large Joint Arthro/Inj: L hip joint 02/15/2025 2:17 PM The procedure site was prepped in the usual sterile fashion. Site: L hip joint Details:Musculoskeletal ultrasound was utilized to successfully localize placement of the injection needle at the appropriate site. Ultrasound images demonstrating local vasculature and demonstrating injection of solution were saved. Medications: 40 mg triamcinolone acetonide 40 mg/mL Anesthetics: 4 mL lidocaine (PF) 10 mg/mL (1 %) Outcome: Tolerated well, no immediate complications Post-injection instructions were reviewed with the patient and the patient voiced understanding of these instructions. Informed Consent Consent Obtained: Verbal Venetia Protocol A moment to CARE was completed. SIGN IN Personnel directly involved with the procedure wore the appropriate PPE. Special Equipment: N/A Patient/Surrogate Stated/Verified: Patient name, Date of , Relevant allergies and Intended procedure TIME OUT Relevant labs, photos, and/or imaging studies have been reviewed. Correct side/site marked and visible. Medications required for procedure verified. No fire risk assessment and interventions applicable. No implant(s) inserted. SIGN OUT No specimen collected. All instruments, equipment, possible retained foreign bodies accounted for. The post-procedure POC has been communicated to the patient or surrogate. No post-procedure POC communication to the patient's multidisciplinary team (including the bedside nurse for hospitalized patients) applicable. us Micah Deal DO PROCEDURE Final Result * US HIP-INJECTION LT (POC) KELLY USE ONLY (02/15/2025 10:19 AM EDT) 02/15/2025 10:1 9 AM EDT us Micah Deal DO IMAGES Final Result [facility] * XR HIP GENERAL 3V PELV/AP/LAT LEFT (02/15/2025 10:02 AM EDT) Anatomical Region Laterality Modality Hip Other 02/15/2025 10:0 2 AM EDT Impressions 02/15/2025 1:09 PM EDT IMPRESSION: Severe left hip osteoarthritis, progressed since 2021. Software Engineer Mobile: BEA Transcribe Date/Time: Feb 15 2025 1:05P Dictated by : ABUNDIO VILLA MD This examination was interpreted and the report reviewed and electronically signed by: ABUNDIO VILLA MD on Feb 15 2025 1:07PM EST Narrative 02/15/2025 1:09 PM EDT * * *Final Report* * * DATE OF EXAM: Feb 15 2025 10:02AM AFR [id number] - XR HIP 3V PELV+ AP/LAT LT / PROCEDURE REASON: Pain in left hip * * * * Physician Interpretation * * * * EXAMINATION: XR HIP 3V PELV+ AP/LAT LT PATIENT/TECHNOLOGIST PROVIDED HISTORY: CHRONIC LEFT HIP PAIN CLINICAL INFORMATION ( PROVIDED BY ORDERING CLINICIAN) : Pain in left hip TECHNIQUE: XR HIP 3V PELV+ AP/LAT LT COMPARISON: 03/23/2022 RESULT: No acute fracture or dislocation. Severe degenerative change of the left hip has progressed since 2021. Mild degenerative change of the right hip. Mild to moderate degenerative change of the SI joints and pubic symphysis. Postoperative and degenerative changes in the lower lumbar spine, incompletely assessed. Procedure Note Provider, [facility] - 02/15/2025 * * *Final Report* * * DATE OF EXAM: Feb 15 2025 10:02AM AFR [id number] - XR HIP 3V PELV+ AP/LAT LT / PROCEDURE REASON: Pain in left hip * * * * Physician Interpretation * * * * EXAMINATION: XR HIP 3V PELV+ AP/LAT LT PATIENT/TECHNOLOGIST PROVIDED HISTORY: CHRONIC LEFT HIP PAIN CLINICAL INFORMATION ( PROVIDED BY ORDERING CLINICIAN) : Pain in left hip TECHNIQUE: XR HIP 3V PELV+ AP/LAT LT COMPARISON: 03/23/2022 RESULT: No acute fracture or dislocation. Severe degenerative change of the left hip has progressed since 2021. Mild degenerative change of the right hip. Mild to moderate degenerative change of the SI joints and pubic symphysis. Postoperative and degenerative changes in the lower lumbar spine, incompletely assessed. IMPRESSION IMPRESSION: Severe left hip osteoarthritis, progressed since 2021. Software Engineer Mobile: PSCB Transcribe Date/Time: Feb 15 2025 1:05P Dictated by : ABUNDIO VILLA MD This examination was interpreted and the report reviewed and electronically signed by: ABUNDIO VILLA MD on Feb 15 2025 1:07PM EST Micah Deal DO RAD-PAMA Final Result * HEPATITIS C ANTIBODY IA WITH CONFIRMATION (01/21/2024 1:46 PM EDT) Hep C Antibody IA Negative Negative 01/22/2024 2:21 PM EDT [facility] Comment:The result suggests no evidence of active infection with Hepatitis C virus. Should recent infection be suspected, repeat testing may be considered 4-6 weeks after this draw. Blood BLOOD SPECIMEN / Unknown Port - Continuous Access Dev. / Unknown 01/21/2024 1:46 PM EDT 01/21/2024 1:48 PM EDT Hilda Templeton PA-C LABORATORY Final Result [facility] [address] * COLONOSCOPY SCREENING (02/11/2023 10:45 AM EDT) Anatomical Region Laterality Modality Other 02/11/2023 10:4 5 AM EDT Narrative 02/11/2023 11:26 AM EDT [facility] Gastrointestinal Endoscopy Patient Name: Yue Caputo Procedure Date: 02/11/2023 10:45 AM Date of : 1955 Admit Type: Outpatient Age: 67 Room: [place] [address] Gender: Female Note Status: Finalized Attending MD: [...] or abscess without bleeding CPT copyright 2020 [employer]. All rights reserved. The codes documented in this report are preliminary and upon night filler review may be revised to meet current compliance requirements. Attending Participation: I personally performed the entire procedure. Scope In: 11:10:24 AM Scope Out: 11:20:04 AM MD Lincoln Schumacher Jr, MD 02/11/2023 11:22:51 AM This report has been signed electronically by Lincoln Jordan Jr, MD Number of Addenda: 0 Note Initiated On: 02/11/2023 10:45 AM Estimated Blood Loss: Estimated blood loss: none. us Nell Pack HASHER MACHINE OPERATOR.CUPOLA TAPPER HELPER DIGESTIVE DISEASE Final Res ult from Last 3 Months or Most Recently Relevant to Health Maintenance Insurance MEDICARE [facility] [place] [id number] Care Teams Living Coach Relationship Specialty Start Date End Date Sunny Jenkins MD PCP - General Internal Medicine 08/22/23 Janet Dillard DO Referring Family Medicine 07/14/21 Mitch Garcia MD [address] [facility] [place] [address] Physician Hematology/Oncology 09/23/23 Deepika Garcia LSW Finish Mixer 09/24/[address] [place] [address] [place] [address] Registered Dietitian Nutrition 10/22/23 Nia Snider, RN Specialty Cement Cutter Hematology/Oncology 04/22/24
--- OUTSIDE RECORDS SUMMARY | 2025-04-19 08:35 | XMS_ITS | Encounter Summary ---
Author Organization [facility] Address [address] [place] [address] Care Team Providers Care Instrumentation And Control Technician Name Role Phone Janet Dillard DO Unavailable Unavailabl Sunny Stone MD Primary Care Provider [phone] Mitch Garcia MD Unavailable [phone] Deepika Garcia Unavailable Unavailable Nona Lomax RD Unavailable [phone] Nia Snider RN Unavailable Unavailable Source Comments In the event this information is protected by the Federal Confidentiality of Alcohol and Drug AbusePatient Records regulations: The Federal rules restrict any use of the information to criminally investigate or prosecute any alcohol or drug abuse patient.[facility] Encounter Details Date Type Department Care Team (Late st Contact Info) Description 04/01/2025 GI Preprocedure Call [facility] Surgery [address] [place] [address] [place] [address] [place] [address] Social History Tobacco Use Types Packs/Day Years [...] place to sleep or slept in a correction (including now)? No 07/30/2023 Area Deprivation Index Answer Date Joaquin rded National Score (1-100), lower number is lower ri sk 92 01/29/2023 State Score (1-10), lower number is lower risk 9 01/29/2023 Data from: https://www.neighborhoodatlas.medicine.[facility].edu/. Last address used for calculation Armando Mayen [...] AM EDT Specialty [facility] [address] [place], [place] [address]134-b-100 [place] [address] Pharmacist, [facility] [address] [place] [address] Refill - Kisqali [28DS] C005/1705/17/2025 8:00 AM EDT Procedure Pulmonary Lab [address] [facility] [place] [address] Dyspnea and respiratory abnormalities [R06.00, R06.89] 05/17/2025 8:15 AM EDT Procedure Pulmonary Lab [address] [facility] [place] [address] Dyspnea and respiratory abnormalities [R06.00, R06.89] 05/17/2025 8:30 AM EDT Office Visit Pulmonary Medicine [address] [facility] [place] [address] Dayanna Alatorre, CUT OFF SAWYER SHINGLE MILL.COILED COIL INSPECTOR [address] [facility] [place] [address] Return in about 1 month (around 05/17/2025). 06/10/2025 1:30 PM EDT Appointment Procedures [address] [place] [address] Debbie Gunn MD [address] [place] [address] 07/07/2025 9:00 AM [facility] Infusion Center Hematology/Oncolo gy [address] [place] [address] lab 07/14/2025 9:30 AM EST [facility] Hematology [address] [place] [address] Mitch Garcia MD [address] [place] [address] Schedule labs prior to Virtual visit with DR Garcia 07/15/2025 9:00 AM EST [facility] Hematology/Oncolo gy [address] [place] [address] Prolia injection day after RADHA virtual visit per staff message 08/23/2025 10:00 AM EST Office Visit Kidney Medicine [address] [place] [address] Shante Carroll, CUT OFF [employer] MILL.COILED COIL INSPECTOR [address] [facility] [place] [address] 6 month follow up 11/01/2025 2:00 PM EDT Office Visit Rheumatology 5700 [facility] [place] [address] Nany Bustillos MD [address] [facility] [place] [address] RA documented as of this encounter Visit Diagnoses Not on filedocumented in this encounter Care Teams Instrumentation And Control Technician Relationship Specialty Start Date End Date Sunny Jenkins MD PCP - General Internal Medicine 08/22/23 Janet Dillard DO Referring Family Medicine 07/14/21 Mitch Garcia MD [address] [facility] [place] [address] Physician Hematology/Oncology 09/23/23 Deepika Garcia LSW Electrical Drafter 09/24/[address] [place] [address] Registered Dietitian Nutrition 10/22/23 Nia Snider, RN Specialty Graphics Programmer Hematology/Oncology 04/22/24 documented as of this encounter
--- OUTSIDE RECORDS SUMMARY | 2025-04-19 08:35 | XMS_ITS | Encounter Summary ---
Author Organization [facility] Address [address] [place] [address] Care Team Providers Care Occupational Health Manager Name Role Phone Janet Dillard DO Unavailable Unavailabl Sunny Stone MD Primary Care Provider [phone] Mitch Garcia MD Unavailable [phone] Deepika Garcia Unavailable Unavailable Nona Lomax RD Unavailable [phone] Nia Snider RN Unavailable Unavailable Source Comments In the event this information is protected by the Federal Confidentiality of Alcohol and Drug AbusePatient Records regulations: The Federal rules restrict any use of the information to criminally investigate or prosecute any alcohol or drug abuse patient.[facility] Encounter Details Date Type Department Care Team (Late st Contact Info) Description 03/16/2025 Patient Msg Gastroenterology [address] [place] [address] Provider, [facility] EGD Prep Instructions Social History Tobacco Use Types Packs/Day [...] place to sleep or slept in a penitentiary (including now)? No 07/30/2023 Area Deprivation Index Answer Date Joaquin rded National Score (1-100), lower number is lower ri sk 92 01/29/2023 State Score (1-10), lower number is lower risk 9 01/29/2023 Data from: https://www.neighborhoodatlas.medicine.[facility].edu/. Last address used for calculation Armando [...] AM EDT Specialty Pharmacy [facility] [address] [place], [place] [address]13024-b-100 [place] [address] Pharmacist, [facility] [address] [place] [address] Refill - Kisqali [28DS] C005/1705/17/2025 8:00 AM EDT Procedure Pulmonary Lab 5700 [place] [address] Dyspnea and respiratory abnormalities [R06.00, R06.89] 05/17/2025 8:15 AM EDT Procedure Pulmonary Lab 5700 [place] [address] Dyspnea and respiratory abnormalities [R06.00, R06.89] 05/17/2025 8:30 AM EDT Office Visit Pulmonary Medicine 5700 [place] [address] Dayanna Alatorre, TRANSIT BUS DRIVER.RESISTANCE WELDING MACHINE OPERATOR 5700 [place] [address] Return in about 1 month (around 05/17/2025). 06/10/2025 1:30 PM EDT Appointment Procedures [address] [place] [address] Debbie Gunn MD [address] [address] 07/07/2025 9:00 AM [facility] Infusion Center Hematology/Oncolo gy [address] [place] [address] lab 07/14/2025 9:30 AM EST [facility] Hematology [address] [place] [address] Mitch Garcia MD 417 [place] [address] Schedule labs prior to Virtual visit with DR Garcia 07/15/2025 9:00 AM [facility] Infusion Center Hematology/Oncolo gy [address] [place] [address] Prolia injection day after RADHA virtual visit per staff message 08/23/2025 10:00 AM EST Office Visit Kidney Medicine [address] [place] [address] Shante Carroll APRN.RESISTANCE WELDING MACHINE OPERATOR [address] [facility] [place] [address] 6 month follow up 11/01/2025 2:00 PM EDT Office Visit Rheumatology 57[address] [facility] [place] [address] Nany Bustillos MD [address] [facility] [place] [address] RA documented as of this encounter Visit Diagnoses Not on filedocumented in this encounter Care Teams Occupational Health Manager Relationship Specialty Start Date End Date Sunny Jenkins MD PCP - General Internal Medicine 08/22/23 Janet Dillard DO Referring Family Medicine 07/14/21 Mitch Garcia MD [address] [place] [address] Physician Hematology/Oncology 09/23/23 Deepika Garcia LSW Manager Country 09/24/[address] [place] [address] [place] [address] Registered Dietitian Nutrition 10/22/23 Nia Snider, MALORIE Specialty Warranty Clerk Hematology/Oncology 04/22/24 documented as of this encounter
--- OUTSIDE RECORDS SUMMARY | 2025-04-19 08:35 | XMS_ITS | Encounter Summary ---
Author Organization [facility] Address [facility] [place] [address] Care Team Providers Care Bureau Director Name Role Phone Janet Dillard DO Unavailable Unavailabl Sunny Stone MD Primary Care Provider [phone] Mitch Garcia MD Unavailable [phone] Deepika Garcia Unavailable Unavailable Nona Lomax RD Unavailable [phone] Nia Snider RN Unavailable Unavailable Source Comments In the event this information is protected by the Federal Confidentiality of Alcohol and Drug AbusePatient Records regulations: The Federal rules restrict any use of the information to criminally investigate or prosecute any alcohol or drug abuse patient.[facility] Reason for Referral * Outpatient Procedure (Routine) - Closed Specialty Diagnoses / Procedures Referred By Contac t Referred To Contact [facility] Diagnoses Dyspnea, unspecified type Procedures SPIROMETRY WITH DILATOR IF OBSTRUCTED BRNCDILAT RSPSE SPMTRY PRE&POST-BRNCDILAT ADMN Boom Mcintosh MD [address] [place] [address] Phone: tel: fax: [facility] [place] [address] [place] [address] Referral ID Status Reason Start Date Expiration Date V isits Requested Visits Authorized [id number] Closed Auto-Generate d Referral 04/14/2025 05/14/2026 1 1 Encounter Details Date Type Department Care Team (Late st Contact Info) Description 04/14/2025 Orders Only [facility] [place] [address] [place] [address] Boom Mcintosh MD [address] [place] [address] Dyspnea, unspecified type (Primary Dx) Social History Tobacco Use Types [...] is lower risk 9 01/29/2023 Data from: https://www.neighborhoodatlas.medicine.[facility].edu/. Last address used for [...] AM EDT Specialty Pharmacy [facility] [address] [place] [address] Pharmacist, [facility] [address] [facility] [place] [address] Refill - Dalia [28DS] C005/1705/17/2025 8:00 AM EDT Procedure Pulmonary Lab [address] [facility] [place] [address] Dyspnea and respiratory abnormalities [R06.00, R06.89] 05/17/2025 8:15 AM EDT Procedure Pulmonary Lab [address] [facility] [place] [address] Dyspnea and respiratory abnormalities [R06.00, R06.89] 05/17/2025 8:30 AM EDT Office Visit Pulmonary Medicine [address] [facility] [place] [address] Dayanna Alatorre APRN.CATALOG LIBRARIAN [address] [facility] [place] [address] Return in about 1 month (around 05/17/2025). 06/10/2025 1:30 PM EDT Appointment Procedures [address] [place] [address] Debbie Gunn MD [address] [place] [address] [place], [place] [id number] 07/07/2025 9:00 AM [facility] Hematology/Oncolo gy [address] [place] [address] lab 07/14/2025 9:30 AM [facility] Hematology [address] [place] [address] Mitch Garcia MD 417 [place] [address] Schedule labs prior to Virtual visit with DR Garcia 07/15/2025 9:00 AM [facility] Hematology/Oncolo gy [address] [facility] [place] [address] Prolia injection day after RADHA virtual visit per staff message 08/23/2025 10:00 AM EST Office Visit Kidney Medicine [address] [facility] [place] [address] Shante Carroll APRN.CATALOG LIBRARIAN [address] [facility] [place] [address] 6 month follow up 11/01/2025 2:00 PM EDT Office Visit Rheumatology [address] [facility] [place] [address] Nany Bustillos MD [address] [place] [address] RA documented as of this encounter Results * SPIROMETRY WITH DILATOR [...] ULN (L/S) 1.09 L/S PULMONARY FUNCTION LAB QHK57-02% PRE (L/S) 1.53 L/S PULMONARY FUNCTION LAB DUJ21-85% PREDICTED (L/S) 1.74 L/S PULMONARY FUNCTION LAB FGY94-62% LLN (L/S) 0.80 L/S PULMONARY FUNCTION LAB PEF PRE (L/S) 4.16 L/S PULMON SHANICE FUNCTION LAB PEF LLN (L/S) 3.61 L/S PULMON SHANICE FUNCTION LAB PEF ULN (L/S) 6.72 L/S PULMON SHANICE FUNCTION LAB FET PRE (S) 6.41 S PULMONAR Y FUNCTION LAB 04/16/2025 7:25 AM EDT Narrative PULMONARY FUNCTION LAB - 04/16/2025 9:54 AM EDT [place] [facility] [address] [facility] [address] [place], [place] [address] Test Date: 2025-04-16 Pat Name: YUE BARTONNIMISHAHE Department: Room: Gender: Female Campaign Marketing Manager: : 1955 Requested By: Melonie Paz MD Order Number: [id number] [place] MD: Melonie Paz MD Interpretive Statements Current ATS/ERS acceptability and repeatability standards for spirometry met. Start of test and EOFE criteria met. //FP IMPRESSION: Spirometry is normal. Electronically Signed On 04-16-2025 09:54:21 EDT by Melonie Paz MD ID: [id number] Name: YUE CAPUTO Race: White Ht: 61.02 in Wt: 260.59 lbs Age: 69 Gender: Female : 1955 Dx: Dyspnea and respiratory abnormalities_ Smoking Hx: Non-smoker Doctor: BOOM MCINTOSH Test Date: 04/16/2025 Site: [facility] Tech: Leonard Cornejo PRE-BRONCH POST-BRONCH Mookie LLN Pred ULN %Pred ZScore Mookie %Pred %Chg ZScore SPIROMETRY FVC 2.06 1.71 2.42 3.15 84 -0.84 FEV1 1.62 1.33 1.91 2.45 84 -0.84 FEV1/FVC 0.79 0.66 0.79 0.90 98 -0.12 FEFMax 4.16 3.61 5.17 6.72 80 -1.06 FEF50 2.52 1.24 2.85 4.46 88 -0.34 FIF50 2.48 FEF50/FIF50 1.01 90-100 FIVC 1.98 UMJ21-49 1.53 0.80 1.74 3.07 87 -0.32 ExpiredTime 6.41 TimeToFEFMax 0.13 LESLEY 0.10 VolExtrap% 5 Comments: Current ATS/ERS acceptability and repeatability standards for spirometry met. Start of test and EOFE criteria met. //FP us Boom Mcintosh MD SCHEDULED PROCEDURES Final Resul t PULMONARY FUNCTION LAB [address] [place] [address] documented in this encounter Visit Diagnoses Diagnosis Dyspnea, unspecified type- Primary Dyspnea, unspecified type- Primary documented in this encounter Care Teams Bureau Director Relationship Specialty Start Date End Date Sunny Jenkins MD PCP - General Internal Medicine 08/22/23 Janet Dillard DO Referring Family Medicine 07/14/21 Mitch Garcia MD [address] [facility] [place] [address] Physician Hematology/Oncology 09/23/23 Deepika Garcia LSW Direct Mail Coordinator 09/24/[address] [facility] [facility] [place] [address] Registered Dietitian Nutrition 10/22/23 Nia Snider, MALORIE Specialty [place] Hematology/Oncology 04/22/24 documented as of this encounter
--- OUTSIDE RECORDS SUMMARY | 2025-04-19 08:35 | XMS_ITS | Encounter Summary ---
Author Organization [facility] Address [id number] [place] [address] Care Team Providers Care Poultry And Fish Butcher Name Role Phone Sunny Jenkins MD Primary Care Provider [phone] Encounter Details Date Type Department Care Team (Late st Contact Info) Description 12/11/2023 [facility] [address] [place] [address] Will Dean CMA Social History [...] got money to buy more. Never True 07/16/2023 Within the past 12 months th e food we bought just didn't last and we didn't have money to get more. Never True 07/16/2023 Purpose - Life Answer Date Recorded Purpose and direction in life Unknown Comments No Sex and Gender Information Value Date Recorded Sex Assigned at Not on file Legal Sex Female 11:30 AM EDT Gender Identity Not on file Sexual Orientation Not on file documented as of this encounter Miscellaneous Notes * Telephone Encounter - Will Dean CMA - 12/11/2023 9:04 AM EDT [facility] into [facility] stating that her prescription for ibrexafungerp is too costly for her to pick up man. Can something else be called in for her yeast infection please. Please advise? * Telephone Encounter - MIR Sheppard - 12/11/2023 9:04 AM EDT New rx sent * Telephone Encounter - Will Dean CMA - 12/11/2023 9:04 AM EDT Patient was called and notified. documented in this encounter Plan of Treatment Upcoming Encounters Date Type Department Care Team (Late st Contact Info) Description 06/22/2025 9:00 AM EDT Office Visit [facility] [address] [place] [phone] Sunny Jenkins MD [address] [place] [address] documented as of this encounter Visit Diagnoses Not on filedocumented in this encounter Additional Health Concerns Assessment Noted Time PHQ-9 Depression Total Score: 3 05/14/20 23 3:00 PM EDT documented as of this encounter Care Teams Poultry And Fish Butcher Relationship Specialty Start Date End Date Sunny Jenkins MD [address] [place] [address] PCP - General Internal Medicine 04/02/23 documented as of this encounter
--- OUTSIDE RECORDS SUMMARY | 2025-04-19 08:35 | XMS_ITS | Encounter Summary ---
Author Organization [facility] Address [address] [place] [address] Care Team Providers Care Real Estate Agency Licensee Name Role Phone Janet Dillard DO Unavailable Unavailabl Sunny Stone MD Primary Care Provider [phone] Mitch Garcia MD Unavailable [phone] Deepika Garcia FREIGHT RATE SPECIALIST Unavailable Unavailable Nona Lomax RD Unavailable [phone] Nia Snider RN Unavailable Unavailable Source Comments In the event this information is protected by the Federal Confidentiality of Alcohol and Drug AbusePatient Records regulations: The Federal rules restrict any use of the information to criminally investigate or prosecute any alcohol or drug abuse patient.[facility] Reason for Visit * Reason Comments Orders THAT [facility] WOMAN ( Mastectomy Supplies) Encounter Details Date Type Department Care Team (Late st Contact Info) Description 03/30/2025 Telephone [facility]ematology [address] [facility] [place], [place] [address] Mitch Garcia MD [address] [place] [address] Orders (THAT SPECIAL WOMAN (Mastectomy Supplies) ) Social History Tobacco Use Types Packs/Day Years [...] is lower risk 9 01/29/2023 Data from: https://www.neighborhoodatlas.medicine.[facility].edu/. Last address used for calculation Armando You [...] encounter Miscellaneous Notes * Telephone Encounter - Michelle Norton MA - 03/30/2025 1:18 PM EDT [employer] [facility] [address] [place] [address] Prescription sign and faxed back. Prescription sent to scanning. documented in this encounter Plan of Treatment Upcoming Encounters Date Type Department Care Team (Late st Contact Info) Description 05/10/2025 7:15 AM EDT Specialty Pharmacy [facility] [address] [place], [place] [address]164-b-100 [place] [address] Pharmacist, [facility] [address] [place] [address] [place] [address] Refill - Kisqali [28DS] C005/1705/17/2025 8:00 AM EDT Procedure Pulmonary Lab [address] [facility] [place] [address] Dyspnea and respiratory abnormalities [R06.00, R06.89] 05/17/2025 8:15 AM EDT Procedure Pulmonary Lab [address] [facility] [place] [address] Dyspnea and respiratory abnormalities [R06.00, R06.89] 05/17/2025 8:30 AM EDT Office Visit Pulmonary Medicine [address] [facility] [place] [address] Dayanna Alatorre APRN.POSTAL TRANSPORTATION CLERK [address] [facility] [place] [address] Return in about 1 month (around 05/17/2025). 06/10/2025 1:30 PM EDT Appointment Procedures [address] [place] [address] Debbie Gunn MD [address] [address] [place], [place] [address] 07/07/2025 9:00 AM [facility] Infusion Center Hematology/Oncolo gy [address] [place] [address] lab 07/14/2025 9:30 AM [facility] Hematology [address] [place] [address] Mitch Garcia MD [address] [place] [address] Schedule labs prior to Virtual visit with DR Garcia 07/15/2025 9:00 AM [facility] Infusion Center Hematology/Oncolo gy [address] [place] [address] Prolia injection day after RADHA virtual visit per staff message 08/23/2025 10:00 AM EST Office Visit Kidney Medicine [address] [place] [address] Shante Carroll, ASSOCIATE GENETICS PROFESSOR.POSTAL TRANSPORTATION CLERK [address] [facility] [place] [address] 6 month follow up 11/01/2025 2:00 PM EDT Office Visit Rheumatology [address] [place] [address] Nany Bustillos MD [address] [facility] [address] [facility] [address] [place], [place] [address] RA documented as of this encounter Visit Diagnoses Not on filedocumented in this encounter Care Teams Real Estate Agency Licensee Relationship Specialty Start Date End Date Sunny Jenkins MD PCP - General Internal Medicine 08/22/23 Janet Dillard DO Referring Family Medicine 07/14/21 Mitch Garcia MD [address] [place] [address] [place] [address] Physician Hematology/Oncology 09/23/23 Deepika Garcia LSW Hr Associate 09/24/[address] [place] [address] [place] [address] Registered Dietitian Nutrition 10/22/23 Nia Snider, MALORIE Specialty Bioinformatics Specialist Hematology/Oncology 04/22/24 documented as of this encounter
--- OUTSIDE RECORDS SUMMARY | 2025-04-19 08:35 | XMS_ITS | Encounter Summary ---
Author Organization [facility] Address [address] [place] [address] Care Team Providers Care Biscuit Packer Name Role Phone Janet Dillard DO Unavailable Unavailabl Sunny Stone MD Primary Care Provider [phone] Mitch Garcia MD Unavailable [phone] Deepika Garcia Unavailable Unavailable Nona Lomax RD Unavailable [phone] Nia Snider RN Unavailable Unavailable Source Comments In the event this information is protected by the Federal Confidentiality of Alcohol and Drug AbusePatient Records regulations: The Federal rules restrict any use of the information to criminally investigate or prosecute any alcohol or drug abuse patient.[facility] Encounter Details Date Type Department Care Team (Latest Contact Info) Description 04/13/2025 Travel Social History Tobacco Use Types Packs/Day Years [...] place to sleep or slept in a skilled nursing (including now)? No 07/30/2023 Area Deprivation Index [...] AM EDT Specialty Pharmacy [facility] [address] [place] [address] [address] [place] [address] Pharmacist, [facility] [address] [place] [address] Refill - Kisqali [28DS] 05/17/2025 8:00 AM EDT Procedure Pulmonary Lab [address] [place] [address] Dyspnea and respiratory abnormalities [R06.00, R06.89] 05/17/2025 8:15 AM EDT Procedure Pulmonary Lab [address] [place] [address] Dyspnea and respiratory abnormalities [R06.00, R06.89] 05/17/2025 8:30 AM EDT Office Visit Pulmonary Medicine [address] [place] [address] Dayanna Alatorre APRN.STUDY ABROAD ADVISOR [address] [place] [address] Return in about 1 month (around 05/17/2025). 06/10/2025 1:30 PM EDT Appointment Procedures [address] [place] [address] Debbie Gunn MD [address] [place], [place] [id number] 07/07/2025 9:00 AM [facility] Hematology/Oncolo gy [address] [place] [address] lab 07/14/2025 9:30 AM [facility] Hematology [address] [place] [address] Mitch Garcia MD [address] [place] [address] Schedule labs prior to Virtual visit with DR Garcia 07/15/2025 9:00 AM [facility] Hematology/Oncolo gy [address] [place] [address] Prolia injection day after RADHA virtual visit per staff message 08/23/2025 10:00 AM EST Office Visit Kidney Medicine [address] [place] [address] Shante Carroll APRN.STUDY ABROAD ADVISOR [address] [facility] [place] [address] 6 month follow up 11/01/2025 2:00 PM EDT Office Visit Rheumatology 57[address] [facility] [place], [place] [id number] Nany Bustillos MD [address] [place] [address] RA documented as of this encounter Visit Diagnoses Not on filedocumented in this encounter Care Teams Biscuit Packer Relationship Specialty Start Date End Date Sunny Jenkins MD PCP - General Internal Medicine 08/22/23 Janet Dillard DO Referring Family Medicine 07/14/21 Mitch Garcia MD [address] [facility] [place] [address] Physician Hematology/Oncology 09/23/23 Deepika Garcia LSW Early Childhood Education Worker 09/24/[address] [place] [address] Registered Dietitian Nutrition 10/22/23 Nia Snider, MALORIE Specialty Flow Nurse Hematology/Oncology 04/22/24 documented as of this encounter
--- OUTSIDE RECORDS SUMMARY | 2025-04-19 08:35 | XMS_ITS | Encounter Summary ---
Author Organization [facility] Address [address] [place] [address] Care Team Providers Care Light Industrial Name Role Phone Chris Amanda Primary Care Provider [phone] Janet Dillard DO Unavailable UnavailSunny Coates MD Primary Care Provider [phone] Yvonne Baumann RN Unavailable [phone] Mitch Garcia MD Unavailable [phone] Hilda Templeton-C Unavailable [phone] Deepika Garcia Unavailable Unavailable Nona Lomax RD Unavailable [phone] Nia Snider RN Unavailable Unavailable Source Comments In the event this information is protected by the Federal Confidentiality of Alcohol and Drug AbusePatient Records regulations: The Federal rules restrict any use of the information to criminally investigate or prosecute any alcohol or drug abuse patient.[facility] Encounter Details Date Type Department Care Team (Late st Contact Info) Description 03/19/2022 Patient Msg Neurology [address] [place] [address] Provider, [facility] Requested [facility]G Appointment Social History Tobacco Use Types Packs/Day [...] N ot on file 03/23/2022 Data from: https://www.neighborhoodatlas.medicine.[facility].edu/. Last address used for calculation Armando Mayen 03/23/2022 Comments No Sex and Gender Information Value Date Recorded Sex Assigned at Female 08/14/2024 10:40 AM EST Legal Sex Female 8:08 AM EST Gender Identity Not on file Sexual Orientation Straight 08/14/2024 10 :40 AM EST COVID-19 Exposure Response Date Recorded In the last 10 days, have gerardo monaco been in contact with someone who was confirmed or suspected to have Coronavirus/COVID-19? No / Unsure 03/19/2022 3:17 PM EDT documented as of this encounter Functional Status * Are you deaf or do you have serious difficulty hearing? Answer Date of Assessment Author No 03/16/2022 3:33 PM EDT Amanda Coffey RN * Are you blind or do you have serious difficulty seeing, even when wearing glasses? Answer Date of Assessment Author No 03/16/2022 3:33 PM EDT Amanda Coffey RN * Do you have serious difficulty walking or climbing stairs? Answer Date of Assessment Author No 03/16/2022 3:33 PM EDT Aamnda Coffey RN * Do you have difficulty dressing or bathing? Answer Date of Assessment Author No 03/16/2022 3:33 PM EDT Amanda Coffey RN * Because of a physical, mental, or emotional condition, do you have difficulty doing errands alone such as visiting a doctor's office or shopping? Answer Date of Assessment Author No 03/16/2022 3:33 PM EDT Amanda Coffey RN documented as of this encounter Mental Status * Because of a physical, mental, or emotional condition, do you have serious difficulty concentrating, remembering, or making decisions? Answer Entry Date Author No 03/16/2022 3:33 PM EDAmanda Zapata RN documented in this encounter Plan of Treatment Upcoming Encounters Date Type Department Care Team (Late st Contact Info) Description 05/10/2025 7:15 AM EDT Specialty Pharmacy [facility] [address] AC[address] [place] [address] Pharmacist, [facility] [address] [place] [address] [place] [address] Refill - Kisqali [28DS] 05/17/2025 8:00 AM EDT Procedure Pulmonary Lab [address] [facility] [place] [address] Dyspnea and respiratory abnormalities [R06.00, R06.89] 05/17/2025 8:15 AM EDT Procedure Pulmonary Lab [address] [facility] [address] Dyspnea and respiratory abnormalities [R06.00, R06.89] 05/17/2025 8:30 AM EDT Office Visit Pulmonary Medicine [address] [facility] [place] [address] Dayanna Alatorre MANAGEMENT AIDE.WAREHOUSE COORDINATOR [address] [facility] [address] Return in about 1 month (around 05/17/2025). 06/10/2025 1:30 PM EDT Appointment Procedures [address] [place] [address] Debbie Gunn MD [address] [place], [place] [id number] 07/07/2025 9:00 AM [facility] Infusion Center Hematology/Oncolo gy [address] [place] [address] lab 07/14/2025 9:30 AM [facility] Hematology [address] [place] [address] Mitch Garcia MD [address] [place] [address] Schedule labs prior to Virtual visit with DR Garcia 07/15/2025 9:00 AM [facility] Infusion Center Hematology/Oncolo gy [address] [place] [address] Prolia injection day after RADHA virtual visit per staff message 08/23/2025 10:00 AM EST Office Visit Kidney Medicine [address] [place] [address] Shante Carroll, MANAGEMENT AIDE.WAREHOUSE COORDINATOR [address] [facility] [place] [address] 6 month follow up 11/01/2025 2:00 PM EDT Office Visit Rheumatology [address] [facility] [place] [address] Nany Bustillos MD [address] [facility] [address] [place], [place] [id number] RA documented as of this encounter Visit Diagnoses Not on filedocumented in this encounter Care Teams Light Industrial Relationship Specialty Start Date End Date TreasureChris PCP - General 01/28/07 08/21/23 Sunny Jenkins MD PCP - General Internal Medicine 08/22/23 Janet Dillard DO Referring Family Medicine 07/14/21 Yvonne Baumann RN [address] [place] [address] Specialty Sheet Metal Apprentice Hematology/Oncology 09/23/23 04/21/24 Mitch Garcia MD [address] [place] [address] [place] [address] Physician Hematology/Oncology 09/23/23 Hilda Templeton PALeonelC [address] [place] [address] [place] [address] Physician Police Magistrate Hematology/Oncology 09/23/23 Deepika Garcia LSW Car Parker 09/24/[address] [place] [address] Registered Dietitian Nutrition 10/22/23 Nia Snider, MALORIE Specialty Sheet Metal Apprentice Hematology/Oncology 04/22/24 documented as of this encounter
--- OUTSIDE RECORDS SUMMARY | 2025-04-19 08:35 | XMS_ITS | Encounter Summary ---
Author Organization [facility] Address [address] [place] [address] Care Team Providers Care Stem Setter Name Role Phone Janet Dillard DO Unavailable Unavailabl Sunny Stone MD Primary Care Provider [phone] Mitch Garcia MD Unavailable [phone] Deepika Garcia STOCKROOM SUPERVISOR Unavailable Unavailable Nona Lomax RD Unavailable [phone] Nia Snider RN Unavailable Unavailable Source Comments In the event this information is protected by the Federal Confidentiality of Alcohol and Drug AbusePatient Records regulations: The Federal rules restrict any use of the information to criminally investigate or prosecute any alcohol or drug abuse patient.[facility] Reason for Visit * Reason Comments Refill Request Encounter Details Date Type Department Care Team (Late st Contact Info) Description 04/09/2025 Refill Hematology [address] [place] [address] Mitch Garcia MD [address] [place] [address] Refill Request Social History Tobacco Use Types Packs/Day Years [...] in a group home (including now)? No 07/30/2023 Area Deprivation [...] AM EDT Specialty Pharmacy [facility] [address] [place], [place] 377564-b-100 [place] [address] Pharmacist, [facility] [address] [place] [address] Refill - Kisqali [28DS] C005/1705/17/2025 8:00 AM EDT Procedure Pulmonary Lab [address] [place] [address] Dyspnea and respiratory abnormalities [R06.00, R06.89] 05/17/2025 8:15 AM EDT Procedure Pulmonary Lab [address] [place] [address] Dyspnea and respiratory abnormalities [R06.00, R06.89] 05/17/2025 8:30 AM EDT Office Visit Pulmonary Medicine [address] [facility] [place] [address] Dayanna Alatorre APRN.MACHINE HAND [address] [facility] [place] [address] Return in about 1 month (around 05/17/2025). 06/10/2025 1:30 PM EDT Appointment Procedures [address] [place] [address] Debbie Gunn MD [address] [place] [address] 07/07/2025 9:00 AM [facility] Infusion Center Hematology/Oncolo gy [address] [facility] [place] [address] lab 07/14/2025 9:30 AM EST [facility] Hematology [address] [place] [address] Mitch Garcia MD [address] [place] [address] Schedule labs prior to Virtual visit with DR Garcia 07/15/2025 9:00 AM [facility] Infusion Center Hematology/Oncolo gy [address] [place] [address] Prolia injection day after RADHA virtual visit per staff message 08/23/2025 10:00 AM EST Office Visit Kidney Medicine [address] [place] [address] Shante Carroll, OVERCASTER.MACHINE HAND [address] [facility] [place] [address] 6 month follow up 11/01/2025 2:00 PM EDT Office Visit Rheumatology 5700 [facility] [place] [id number] Nany Bustillos MD [address] [facility] [address] RA documented as of this encounter Visit Diagnoses Diagnosis Invasive lobular carcinoma of breast in female (HCC) documented in this encounter Care Teams Stem Setter Relationship Specialty Start Date End Date Gregory, Muhamid M, MD PCP - General Internal Medicine 08/22/23 Janet Dillard DO Referring Family Medicine 07/14/21 Mitch Garcia MD [address] [place] [address] [place] [address] Physician Hematology/Oncology 09/23/23 Deepika Garcia LSW News Operations Manager 09/24/[address] [place] [address] [place] [address] Registered Dietitian Nutrition 10/22/23 Nia Snider, RN Specialty Showroom Manager Hematology/Oncology 04/22/24 documented as of this encounter
--- OUTSIDE RECORDS SUMMARY | 2025-04-19 08:35 | XMS_ITS | Encounter Summary ---
Author Organization [facility] Address [facility] [place] [address] Care Team Providers Care Electric System Operator Name Role Phone Janet Dillard DO Unavailable Unavailabl Sunny Stone MD Primary Care Provider Mitch Garcia MD Unavailable [phone] Deepika Garcia Unavailable Unavailable Nona Lomax RD Unavailable [phone] Nia Snider RN Unavailable Unavailable Source Comments In the event this information is protected by the Federal Confidentiality of Alcohol and Drug AbusePatient Records regulations: The Federal rules restrict any use of the information to criminally investigate or prosecute any alcohol or drug abuse patient.[facility] Encounter Details Date Type Department Care Team (Late st Contact Info) Description 02/22/2025 Results Follow-Up Kidney Medicine [address] [place], [place] [id number] Yue Negro DO [address] [place] [address] Social History Tobacco Use Types Packs/Day Years [...] place to sleep or slept in a assisted (including now)? No 07/30/2023 Area Deprivation Index Answer Date Joaquin rded National Score (1-100), lower number is lower ri sk 92 01/29/2023 State Score (1-10), lower number is lower risk 9 01/29/2023 Data from: https://www.neighborhoodatlas.medicine.[facility].edu/. Last address used for calculation Armando Mayen [...] AM EDT Specialty Pharmacy [facility] [address] [place], [place] 131114-b-100 [place] [address] Pharmacist, [facility] [address] [place] [address] Refill - Kisqali [28DS] C005/1705/17/2025 8:00 AM EDT Procedure Pulmonary Lab [address] [place] [address] Dyspnea and respiratory abnormalities [R06.00, R06.89] 05/17/2025 8:15 AM EDT Procedure Pulmonary Lab [address] [place] [address] Dyspnea and respiratory abnormalities [R06.00, R06.89] 05/17/2025 8:30 AM EDT Office Visit Pulmonary Medicine [address] [place] [address] Dayanna Alatorre, LENA.CHAIN OFFBEARER [address] [facility] [place] [address] Return in about 1 month (around 05/17/2025). 06/10/2025 1:30 PM EDT Appointment Procedures [address] [place] [address] Debbie Gunn MD [address] [place] [address] [place] [address] 07/07/2025 9:00 AM [facility] Infusion Center Hematology/Oncolo gy [address] [facility] [place] [address] lab 07/14/2025 9:30 AM [facility] Hematology [address] [place] [address] Mitch Garcia MD [address] [place] [address] Schedule labs prior to Virtual visit with DR Garcia 07/15/2025 9:00 AM [facility] Hematology/Oncolo gy [address] [facility] [place] [address] Prolia injection day after RADHA virtual visit per staff message 08/23/2025 10:00 AM EST Office Visit Kidney Medicine [address] [place] [address] Shante Carroll, MOVIE ACTOR.CHAIN OFFBEARER [address] [facility] [place] [address] 6 month follow up 11/01/2025 2:00 PM EDT Office Visit Rheumatology 5700 [facility] [place] [address] Nany Bustillos MD [address] [facility] [place] [address] RA documented as of this encounter Visit Diagnoses Not on filedocumented in this encounter Care Teams Electric System Operator Relationship Specialty Start Date End Date Sunny Jenkins MD PCP - General Internal Medicine 08/22/23 Janet Dillard DO Referring Family Medicine 07/14/21 Mitch Garcia MD [address] [place] [address] [place] [address] Physician Hematology/Oncology 09/23/23 Deepika Garcia LSW Residential Housekeeper 09/24/[address] [place] [address] [place] [address] Registered Dietitian Nutrition 10/22/23 Nia Snider, RN Specialty Chute Man Hematology/Oncology 04/22/24 documented as of this encounter
--- OUTSIDE RECORDS SUMMARY | 2025-04-19 08:35 | XMS_ITS | Encounter Summary ---
Author Organization [facility] Address [id number] [address] [place] [address] Care Team Providers Care Chief Privacy Officer Name Role Phone Sunny Jenkins MD Primary Care Provider [phone] Reason for Visit * Reason Comments Med Refill Encounter Details Date Type Department Care Team (Late st Contact Info) Description 10/04/2023 Refill [facility] Rheumatology [address] [id number] Celia Lewis MD [address] [address] Social History Tobacco Use Types Packs/Day Years [...] encounter Miscellaneous Notes * Telephone Encounter - Rajani Guerrero CMA - 10/04/2023 12:36 PM EST Please review RX request as Dr. Lewis is out of office until 10/10/23. 1 week supply pended. documented in this encounter Plan of Treatment Upcoming Encounters Date Type Department Care Team (Late st Contact Info) Description 06/22/2025 9:00 AM EDT Office Visit [facility] Family Medicine [address] [place] [address] Sunny Jenkins MD [address] [facility] [place] [address] documented as of this encounter Visit Diagnoses Not on filedocumented in this encounter Additional Health Concerns Assessment Noted Time PHQ-9 Depression Total Score: 3 05/14/20 23 3:00 PM EDT documented as of this encounter Care Teams Chief Privacy Officer Relationship Specialty Start Date End Date Sunny Jenkins MD [address] [facility] [place] [address] PCP - General Internal Medicine 04/02/23 documented as of this encounter
--- OUTSIDE RECORDS SUMMARY | 2025-04-19 08:35 | XMS_ITS | Encounter Summary ---
Author Organization [facility] Address [address] [place] [address] Care Team Providers Care Advertising Assistant Name Role Phone Janet Dillard DO Unavailable Unavailabl Sunny Stone MD Primary Care Provider [phone] Mitch Garcia MD Unavailable [phone] Deepika Garcia Unavailable Unavailable Nona Lomax RD Unavailable [phone] Nia Snider RN Unavailable Unavailable Source Comments In the event this information is protected by the Federal Confidentiality of Alcohol and Drug AbusePatient Records regulations: The Federal rules restrict any use of the information to criminally investigate or prosecute any alcohol or drug abuse patient.[facility] Reason for Visit * Reason Onset Date Comments SPP Oral Oncology/hematology - Medication Refill 04/12/2025 Dahliaqisabel Encounter Details Date Type Department Care Team (Latest Contact Info) Description 04/12/2025 Specialty Pharmacy [facility] [address] [place] [address] Muna Fox RPh SPP Oral Oncology/hematology - Medication Refill (Kisqali) Social History Tobacco Use Types Packs/Day Years [...] documented in this encounter Progress Notes * Citlali Negrete - 04/12/2025 9:26 AM EDT [facility] Refill Assessment Medication(s): Kisqali Reviewed encounter notes since last specialty review. TE 04/12 with external provider reports sinusitis. Cefdinir prescribed. No interaction with Kisqali noted. OV note on 04/13 reviewed. Patient reports she is doing well with Kisqali/Letrozole. She was wondering if she needs to restart Methotrexate for her RA. Advised to follow up with rheumatology. Labs reviewed. Creatinine Date Value Ref Range Status 03/30/2025 1.48 (H) 0.58 - 0.96 mg/dL Final 12/24/2024 1.25 (H) 0.58 - 0.96 mg/dL Final 09/11/2024 1.74 (H) 0.58 - 0.96 mg/dL Final 07/14/2024 1.72 (H) 0.58 - 0.96 mg/dL Final Slight elevation in SrCr noted. Estimated CrCl ~44 mL/min. Will continue to monitor. No dose adjustment needed at this time. Next clinic visit scheduled 07/14. Kisqali Cycles (21 days on / 7 days off): C1D1 - 1 C2D1 - 2 C3D1 - 3 C4D1 - 4 C5D1 - 5 C6D1 - 6 C7D1 - 6 C8D1 - 7 C9D1 - 8 C10D1- 9 ALLERGIES Allergen Reactions Fentanyl Intolerance Drop in RR and drop in pulse ox to 70% Adhesive Tape-Silic* Rash Sulfa (Sulfonamide * Unknown Patient's current medication list and adherence status to current therapy were reviewed by Specialty Pharmacy clinical pharmacist to identify any new drug interactions or non-compliance to therapy. Therapy continues to be appropriate for disease, patient response, and medical condition. Verification of therapeutic benefit and effectiveness with current therapy was completed. Adverse events, barriers in adherence, and side effects were assessed and addressed if applicable. Will proceed with refill with no changes in therapy - patient progressing towards achieving therapeutic goals based on medication- specific laboratory parameters, disease state markers and outcomes. Office/provider notes have been reviewed prior to dispensing the medication. Suzanne Hung [facility] PharmD, [facility] Clinical Pharmacist, Oncology [facility] P: , F: Pool: P [facility] Pool #: [id number] Vehicle Insurance Agent Assessment Patient confirmed: Yes Med/dose confirmed: Yes Supplies needed: No supplies needed Missed doses: No Estimated days supply on hand: 0 Next cycle/dose due: 04/19/25 Copay amount: 0 Delivery method: FedEx Signature required: Waived on patient request Delivery address: [address] [place], [place] [id number] Delivery date: 04/15/25 Questions or concerns for the pharmacist?: No Did you have any side effects believed to be related to this medication, that resulted in hospitalization?: No Current Outpatient Medications on File Prior to Visit Medication Sig ribociclib (KISQALI) 400 mg/day (200 mg x [...] Take 50 mg by mouth once daily. No current facility-administered medications on file prior to visit. [facility] SPECIALTY CLINICAL ASSESSMENT - HEMATOLOGY ONCOLOGY V6: Ivent complete: No Assessment to use: Refill Lab monitoring inclusive of CBC, Chem-7, and other labs as pertinent for therapy: Yes Chemo cycle timing assessment: Yes Assessment of injection issues: N/A Current medication list (including drug interaction assessment): Yes Experience of adverse reactions to the medication: Yes Date of influenza vaccination reminder: 08/28/2024 Date of most recent vaccination assessment: 08/28/2024 Treatment Plan Information: Diagnosis: T3, N3, M0, invasive lobular carcinoma, grade 2, ER 80%, AR 5% and HER2/akash negative, IHC 0 Previous treatment(s): - L breast mastectomy - DDAC (2 cycles c/b neutropenic fever) - Taxol (2 weeks c/b infection and diverticulitis) - RT (03/03/24-03/24/24) - Verzenio (04/2024 - 05/2024 d/t diarrhea) - Arimidex (04/2024 - current) Treatment Plan: Ribociclib + Anastrozole Medication: Kisqali (ribociclib) Sig: Take 2 tablets (400 mg) by mouth once daily for 21 days on, followed by 7 days off. - Dose adjustments: eGFR <30 mL/min or CP class B or C Administration: - Take with or with out food, at about the same time each day - morning is preferred (as QT prolongation risk may be increased when it is taken in the evening d/t bradycardia which naturally occurs during sleep) - Avoid grapefruit - Swallow whole - If a dose is missed, do not administer an additional dose that day Storage: refrigerated in original package. Throw out any remaining tablets after 60 days if stored at room temp Supportive care: - Mod- high emetic potential: anti- emetic therapy recommended Side Effects/Warnings: include but are not limited to alopecia, skin rash, diarrhea > constipation, decreased appetite, gastroenteritis, stomatitis, N/V (moderate), fatigue, arthralgia, elevated SCr Warnings include but not limited to: - BMS - especially neutropenia - G3/4 common (median onset G2 or higher ~16 days, median recovery from G3 or higher ~12 days) - QT prolongation - initiate treatment only if QTcF <450 - Derm Toxicity - Hepatobiliary toxicity: AST/ALT elevations observed (med onset ~85 days, resolution ~22 days) - Pulmonary toxicity Monitoring: - CBC (baseline, every 2 weeks for 2 cycles, beginning of next 4 cycles, and PRN) - LFTs (baseline, every 2 weeks x 2 cycles, beginning of next 4 cycles, and PRN) - Serum electrolytes (K, Mg, Ca, Phos - baseline, before first 6 cycles, and PRN) - ECG (prior to tx, day 14 of cycle 1; before cycle 2, and PRN) - S/S derm toxicity, ILD/pneumonitis - Monitor adherence - Hep B screening Baseline: - ANC 3.87 - eGFR 32 - ALT 11, AST 10 - ECG (07/17/24) QTc 433 - Hep B (01/21/24): Hep B Surf Ab (-), Core Ab (-), Surf Ag (-) Drug-Drug Interactions: 08/28/24 [C] Atorvastatin: ribociclib may increase the serum concentration of atorvastatin - monitor for increased adverse effects (myopathy) Vaccine Recommendations: Td, RSV, covid, flu Est. Tx Plan Start Date: No information available Estimated Start Date Info: Per Dr. Garcia's discretion Est. Estimated Treatment Duration: 3 years Citlali Negrete documented in this encounter Plan of Treatment Upcoming Encounters Date Type Department Care Team (Late st Contact Info) Description 05/10/2025 7:15 AM EDT Specialty Pharmacy [facility] [address] [facility] [address] [place] [address] Pharmacist, [facility] [address] [place] [address] [place] [address] Refill - Kisqali [28DS] C005/1705/17/2025 8:00 AM EDT Procedure Pulmonary Lab [address] [facility] [place] [address] Dyspnea and respiratory abnormalities [R06.00, R06.89] 05/17/2025 8:15 AM EDT Procedure Pulmonary Lab [address] [facility] [place] [address] Dyspnea and respiratory abnormalities [R06.00, R06.89] 05/17/2025 8:30 AM EDT Office Visit Pulmonary Medicine [address] [facility] [place] [address] Dayanna Alatorre APRN.HARPOONER [address] [place] [address] Return in about 1 month (around 05/17/2025). 06/10/2025 1:30 PM EDT Appointment Procedures [address] [place] [address] Debbie Gunn MD [address] [facility] [place] [address] 07/07/2025 9:[address] [facility] Hematology/Oncolo gy [address] [facility] [place] [address] lab 07/14/2025 9:30 AM [facility] Hematology [address] [place] [address] Mitch Garcia MD [address] [place] [address] Schedule labs prior to Virtual visit with DR Garcia 07/15/2025 9:00 AM EST Infusion Center Hematology/Oncolo gy [address] [facility] [place] [place] [address] Prolia injection day after RADHA virtual visit per staff message 08/23/2025 10:00 AM EST Office Visit Kidney Medicine [address] [facility] [place] [address] Shante Carroll APRN.HARPOONER [address] [facility] [place] [address] 6 month follow up 11/01/2025 2:00 PM EDT Office Visit Rheumatology [address] [facility] [address] Nany Bsutillos MD [address] [facility] [address] RA documented as of this encounter Visit Diagnoses Diagnosis Invasive lobular carcinoma of breast in female (HCC)- Primary documented in this encounter Care Teams Advertising Assistant Relationship Specialty Start Date End Date Sunny Jenkins MD PCP - General Internal Medicine 08/22/23 Janet Dillard DO Referring Family Medicine 07/14/21 Mitch Garcia MD [address] [place] [address] [place] [address] Physician Hematology/Oncology 09/23/23 Deepika Garcia LSW Creative Intern 09/24/[address] [place] [address] [place] [address] Registered Dietitian Nutrition 10/22/23 Nia Snider, [facility] Chaplain Hematology/Oncology 04/22/24 documented as of this encounter
--- OUTSIDE RECORDS SUMMARY | 2025-04-19 08:35 | XMS_ITS | Encounter Summary ---
Author Organization [employer] tem Address [id number] [address] [place] [address] Care Team Providers Care Advertising Editor Name Role Phone Sunny Jenkins MD Primary Care Provider [phone] Encounter Details Date Type Department Care Team (Late st Contact Info) Description 11/19/2023 [facility]phone [facility] [address] [place] [address] [place] [address] Sunny Jenkins MD [address] [place] [address] Social History Tobacco Use Types Packs/Day Years [...] encounter Miscellaneous Notes * Telephone Encounter - Lizet Zapata - 11/19/2023 11:14 AM EDT Update* Ritu - please contact for SHEBA. Did not mean to sent to PCP. Patient being discharged from the [facility] 11/19/2023. Patient scheduled for SHEBA appointment with Dr. Jenkins on 11/21/2023 at 11:45 AM. Please contact for SHEBA. Thank you * Telephone Encounter - Ritu Martinez RN - 11/19/2023 11:14 AM EDT Thanks, I wrote it on my list for tomorrow. * Telephone Encounter - Lizet Zapata - 11/19/2023 11:14 AM EDT Called patient to confirm upcoming SHEBA appointment. Patient stated she was not familiar that appointment was scheduled and she does not feel that appointment is needed at this time. Patient elected to cancel appointment. documented in this encounter Plan of Treatment Upcoming Encounters Date Type Department Care Team (Late st Contact Info) Description 06/22/2025 9:00 AM EDT Office Visit [facility] [address] [place] [phone] Sunny Jenkins MD [address] [place] [address] documented as of this encounter Visit Diagnoses Not on filedocumented in this encounter Additional Health Concerns Assessment Noted Time PHQ-9 Depression Total Score: 3 05/14/20 23 3:00 PM EDT documented as of this encounter Care Teams Advertising Editor Relationship Specialty Start Date End Date Sunny Jenkins MD [address], [facility] [place] [address] PCP - General Internal Medicine 04/02/23 documented as of this encounter
--- OUTSIDE RECORDS SUMMARY | 2025-04-19 08:35 | XMS_ITS | Encounter Summary ---
Author Organization [employer] [facility] tem Address [id number] [address] [place] [address] Care Team Providers Care Cream Maker Name Role Phone Sunny Coleman MD Primary Care Provider [phone] Encounter Details Date Type Department Care Team (Late st Contact Info) Description 08/02/2023 [facility] [address] [place] [address] [place] [address] Will Dean CMA Social History [...] Telephone Encounter - Will Dean CMA - 08/02/2023 1:12 PM EST Patient just had mastectomy, is having lots of swelling. Home care is wondering if she should be taking a baby Asprin to help prevent blood clot? Patient is currently unable to wear compression stockings. Please advise * Telephone Encounter - Sunny Coleman MD - 08/02/2023 1:12 PM EST Unclear where swelling is occurring? Legs at mastectomy surgical site? If swelling is one sided on leg, I would like a same day appointment to assess. If swelling is improving since procedure I have no concern. Asprin is insufficient to prevent a DVT, so dont recommended starting that for the swelling. Any questions/concerns other than above we can setup a same day phone call. Thanks, SUNNY COLEMAN MD 08/04/23 * Telephone Encounter - Will Dean CMA - 08/02/2023 1:12 PM EST Patient was called for clarification, no answer and voicemail not set up yet. Home health was also called for clarification, no answer lvm for her to call office. * Telephone Encounter - Will Dean CMA - 08/02/2023 1:12 PM EST Home health called back with clarification of swelling, she stated that the patients bilateral extremities are swelling. Patient was called to set up same day appointment and no answer. Unable to lvm. * Telephone Encounter - Will Dean CMA - 08/02/2023 1:12 PM EST Patient scheduled 08/07/2023. Addition to bilateral edema, rash covering body patient thinks is from laundry detergent from hospital. documented in this encounter Plan of Treatment Upcoming Encounters Date Type Department Care Team (Late st Contact Info) Description 06/22/2025 9:00 AM EDT Office Visit [facility] [address] [place] [phone] Sunny Coleman MD [address] [place], [place] [id number] documented as of this encounter Visit Diagnoses Not on filedocumented in this encounter Additional Health Concerns Assessment Noted Time PHQ-9 Depression Total Score: 3 05/14/20 23 3:00 PM EDT documented as of this encounter Care Teams Cream Maker Relationship Specialty Start Date End Date Sunny Coleman MD [address] [place], [place] [phone] PCP - General Internal Medicine 04/02/23 documented as of this encounter
--- OUTSIDE RECORDS SUMMARY | 2025-04-19 08:35 | XMS_ITS | Encounter Summary ---
Author Organization [employer] Address [facility][id number] [address] [place] [address] Care Team Providers Care Equipment Manager Name Role Phone Sunny Jenkins MD Primary Care Provider [phone] Encounter Details Date Type Department Care Team (Late st Contact Info) Description 11/11/2023 [facility] [address] [place] [address] [address] Will Dean CMA Social History [...] Encounter - Will Dean CMA - 11/11/2023 12:04 PM EDT FYI Home care called to re-instate care, patient went into the hospital and has since been discharged. Patient is a current and up to date patient of provider. GEORGINA gave the okay for provider to follow for home care orders. * Telephone Encounter - Sunny Jenkins MD - 11/11/2023 12:04 PM EDT No action needed, Sounds appropriate. Thanks documented in this encounter Plan of Treatment Upcoming Encounters Date Type Department Care Team (Late st Contact Info) Description 06/22/2025 9:00 AM EDT Office Visit [facility] [address] [place] [phone] Sunny Jenkins MD [address] [place] [address] documented as of this encounter Visit Diagnoses Not on filedocumented in this encounter Additional Health Concerns Assessment Noted Time PHQ-9 Depression Total Score: 3 05/14/20 23 3:00 PM EDT documented as of this encounter Care Teams Equipment Manager Relationship Specialty Start Date End Date Sunny Jenkins MD [address] [facility] [place] [address] PCP - General Internal Medicine 04/02/23 documented as of this encounter
--- OUTSIDE RECORDS SUMMARY | 2025-04-19 08:35 | XMS_ITS | Encounter Summary ---
Author Organization [facility] Address [address] [place] [address] Care Team Providers Care Naturalization Examiner Name Role Phone Janet Dillard DO Unavailable Unavailabl Sunny Stone MD Primary Care Provider Yvonne Baumann RN Unavailable [phone] Mitch Garcia MD Unavailable [phone] Hilda Templeton PA-C Unavailable [phone] Deepika Garcia Unavailable Unavailable Nona Lomax RD Unavailable [phone] Nia Snider RN Unavailable Unavailable Source Comments In the event this information is protected by the Federal Confidentiality of Alcohol and Drug AbusePatient Records regulations: The Federal rules restrict any use of the information to criminally investigate or prosecute any alcohol or drug abuse patient.[facility] Encounter Details Date Type Department Care Team (Late st Contact Info) Description 10/16/2023 Patient Msg Dermatology [facility] Pl[facility] [place] [address] [place] [address] Provider, [facility] APPOINTMENT Social History Tobacco Use Types Packs/Day Years [...] lower risk 9 01/29/2023 Data from: https://www.neighborhoodatlas.medicine.[facility].edu/. Last address used for calculation Armando [...] AM EDT Specialty Pharmacy [facility] [address] [place], [place] [address] [place] [address] Pharmacist, [facility] [address] [place] [address] Refill - Kisqali [28DS] C005/1705/17/2025 8:00 AM EDT Procedure Pulmonary Lab [address] [place] [address] Dyspnea and respiratory abnormalities [R06.00, R06.89] 05/17/2025 8:15 AM EDT Procedure Pulmonary Lab [address] [place] [address] Dyspnea and respiratory abnormalities [R06.00, R06.89] 05/17/2025 8:30 AM EDT Office Visit Pulmonary Medicine [address] [place] [address] Dayanna Alatorre, LENA.BASEBALL CLUB MANAGER [address] [facility] [place] [address] Return in about 1 month (around 05/17/2025). 06/10/2025 1:30 PM EDT Appointment Procedures [address] [place] [address] Debbie uGnn MD [address] [place] [address] [place] [address] 07/07/2025 9:00 AM [facility] Infusion Center Hematology/Oncolo gy [address] [facility] [address] lab 07/14/2025 9:30 AM [facility] Hematology [address] [place] [address] Mitch Garcia MD [address] [place] [address] Schedule labs prior to Virtual visit with DR Garcia 07/15/2025 9:00 AM [facility] Hematology/Oncolo gy [address] [facility] [place] [address] Prolia injection day after RADHA virtual visit per staff message 08/23/2025 10:00 AM EST Office Visit Kidney Medicine [address] [place] [address] Shante [place], POWERHOUSE ELECTRICIAN APPRENTICE.BASEBALL CLUB MANAGER [address] [facility] [place] [address] 6 month follow up 11/01/2025 2:00 PM EDT Office Visit Rheumatology [address] [facility] [address] Nany Bustillos MD [address] [facility] [place] [address] RA documented as of this encounter Visit Diagnoses Not on filedocumented in this encounter Care Teams Naturalization Examiner Relationship Specialty Start Date End Date Sunny Jenkins MD PCP - General Internal Medicine 08/22/23 Janet Dillard DO Referring Family Medicine 07/14/21 Yvonne Baumann RN [address] [place] [address] [place] [address] Specialty Pattern Hanger Hematology/Oncology 09/23/23 04/21/24 Mitch Garcia MD [address] [place] [address] [place] [address] Physician Hematology/Oncology 09/23/23 Hilda Templeton PA-C [address] [place] [address] [place] [address] Physician Granulator Hematology/Oncology 09/23/23 Deepika Garcia LSW Wash House Supervisor 09/24/[address] [place] [address] [place] [address] Registered Dietitian Nutrition 10/22/23 Nia Snider, RN Specialty Pattern Hanger Hematology/Oncology 04/22/24 documented as of this encounter
--- OUTSIDE RECORDS SUMMARY | 2025-04-19 08:35 | XMS_ITS | Encounter Summary ---
Author Organization [facility] Address [address] [place] [address] Care Team Providers Care Farm Crew Member Name Role Phone Janet Dillard DO Unavailable Unavailabl Sunny Stone MD Primary Care Provider [phone] Mitch Garcia MD Unavailable [phone] Deepika Garcia Unavailable Unavailable Nona Lomax RD Unavailable [phone] Nia Snider RN Unavailable Unavailable Source Comments In the event this information is protected by the Federal Confidentiality of Alcohol and Drug AbusePatient Records regulations: The Federal rules restrict any use of the information to criminally investigate or prosecute any alcohol or drug abuse patient.[facility] Reason for Visit * Reason Comments Orders Encounter Details Date Type Department Care Team (Late st Contact Info) Description 03/30/2025 Telephone Hematology/Oncology [address] [place] [address] [place] [address] Perla Salazar, MALORIE Orders Social History Tobacco Use Types Packs/Day Years [...] is lower risk 9 01/29/2023 Data from: https://www.neighborhoodatlas.medicine.[facility].edu/. Last address used for calculation Armando Mayen [...] encounter Miscellaneous Notes * Telephone Encounter - Perla Salazar RN - 04/01/2025 4:33 PM EDT Sure thing! Thanks. PHARM: can you enter this for RADHA? Perla Salazar RN * Telephone Encounter - Mitch Garcia MD - 03/30/2025 10:56 PM EDT Rufino Singh pharmacy place orders. Thans * Telephone Encounter - Perla Salazar RN - 03/30/2025 11:52 AM EDT Pt in for port draw today at the [facility]. Unable to get blood return even with repositioning. Reviewed with patient need for activase and procedure. Pt agreeable to come next week to get activase. RADHA: Please place orders. Pt coming 04/05/25 to [place] office. Thanks. Perla Salazar, RN documented in this encounter Plan of Treatment Upcoming Encounters Date Type Department Care Team (Late st Contact Info) Description 05/10/2025 7:15 AM EDT Specialty Pharmacy [facility] [address] [place] [address] AC4-[id number] [place] [address] Pharmacist, [facility] [address] [place] [address] [place] [id number] Refill - Kisqali [28DS] C005/1705/17/2025 8:00 AM EDT Procedure Pulmonary Lab [address] [place] [address] Dyspnea and respiratory abnormalities [R06.00, R06.89] 05/17/2025 8:15 AM EDT Procedure Pulmonary Lab 5700 [place] [address] Dyspnea and respiratory abnormalities [R06.00, R06.89] 05/17/2025 8:30 AM EDT Office Visit Pulmonary Medicine 5700 [place] [address] Dayanna Alatorre APRN.STITCHER TAPE CONTROLLED MACHINE [address] [place] [address] Return in about 1 month (around 05/17/2025). 06/10/2025 1:30 PM EDT Appointment Procedures [address] [place] [address] Debbie Gunn MD [address] [facility] [place] [address] 07/07/2025 9:00 AM EST Infusion Center Hematology/Oncolo gy [address] [address] lab 07/14/2025 9:30 AM EST [facility] Hematology [address] [place] [address] Mitch Garcia MD [address] [place] [address] Schedule labs prior to Virtual visit with DR Garcia 07/15/2025 9:00 AM EST Infusion Center Hematology/Oncolo gy [address] [place] [address] Prolia injection day after RADHA virtual visit per staff message 08/23/2025 10:00 AM EST Office Visit Kidney Medicine [address] [facility] [place] [address] Shante Carroll APRN.STITCHER TAPE CONTROLLED MACHINE [address] [facility] [place] [address] 6 month follow up 11/01/2025 2:00 PM EDT Office Visit Rheumatology [address] [facility] [address] Nany Bustillos MD [address] [facility] [place], [place] [address] RA documented as of this encounter Visit Diagnoses Not on filedocumented in this encounter Care Teams Farm Crew Member Relationship Specialty Start Date End Date Sunny Jenkins MD PCP - General Internal Medicine 08/22/23 Janet Dillard DO Referring Family Medicine 07/14/21 Mitch Garcia MD [address] [place] [address] [place] [address] Physician Hematology/Oncology 09/23/23 Deepika Garcia LSW Nursery Manager 09/24/[address] [place] [address] [place] [address] Registered Dietitian Nutrition 10/22/23 Nia Snider, RN Specialty Pipe Smoking Machine Operator Hematology/Oncology 04/22/24 documented as of this encounter
--- OUTSIDE RECORDS SUMMARY | 2025-04-19 08:36 | XMS_ITS | Encounter Summary ---
Author Organization [employer] [facility] tem Address [facility]-[id number] [address] [place] [address] Care Team Providers Care Lawn Mower Operator Name Role Phone Sunny Jenkins MD Primary Care Provider Encounter Details Date Type Department Care Team (Late st Contact Info) Description 12/19/2023 [facility]phone [facility] [address] [place] [address] Will Dean CMA Social History [...] Telephone Encounter - Will Dean CMA - 12/19/2023 10:23 AM EDT Patient is requesting refill of her Lotrisone cream for her yeast infection please. Initial prescription ended. Please send to [facility] in [place] * Telephone Encounter - MIR Sheppard - 12/19/2023 10:23 AM EDT I did not see it in her past meds. I sent in a new rx. * Telephone Encounter - Will Dean CMA - 12/19/2023 10:23 AM EDT Patient called and notified documented in this encounter Plan of Treatment Upcoming Encounters Date Type Department Care Team (Late st Contact Info) Description 06/22/2025 9:00 AM EDT Office Visit [facility] [address] [place] [address] [place] [address] Sunny Jenkins MD 605 [place] [address] documented as of this encounter Visit Diagnoses Not on filedocumented in this encounter Additional Health Concerns Assessment Noted Time PHQ-9 Depression Total Score: 3 05/14/20 23 3:00 PM EDT documented as of this encounter Care Teams Lawn Mower Operator Relationship Specialty Start Date End Date Sunny Jenkins MD 605 [place] [address] PCP - General Internal Medicine 04/02/23 documented as of this encounter
--- OUTSIDE RECORDS SUMMARY | 2025-04-19 08:36 | XMS_ITS | Encounter Summary ---
Author Organization [facility] Address [address] [place] [address] Care Team Providers Care Booking Prizer Name Role Phone Janet Dillard DO Unavailable Unavailabl Sunny Stone MD Primary Care Provider [phone] Yvonne Baumann RN Unavailable [phone] Mitch Garcia MD Unavailable [phone] Hilda Templeton PA-C Unavailable [phone] Deepika Garcia Unavailable Unavailable Nona Lomax RD Unavailable [phone] Nia Snider RN Unavailable Unavailable Source Comments In the event this information is protected by the Federal Confidentiality of Alcohol and Drug AbusePatient Records regulations: The Federal rules restrict any use of the information to criminally investigate or prosecute any alcohol or drug abuse patient.[facility] Encounter Details Date Type Department Care Team (Late st Contact Info) Description 09/19/2023 Patient [facility] Radiology Procedure [address] [facility] [place] [address] Provider, [facility] You are scheduled for a Port Placement, On 09/25/2023. Social History Tobacco Use Types Packs/Day Years [...] https://www.neighborhoodatlas.medicine.[place].edu/. Last address used for calculation Armando You [...] AM EDT Specialty Pharmacy [facility] [address] [place] [address] AC4-b-100 [place] [address] Pharmacist, [facility] [address] [place] [address] Refill - Kisqali [28DS] C005/1705/17/2025 8:00 AM EDT Procedure Pulmonary Lab 5700 [place] [address] Dyspnea and respiratory abnormalities [R06.00, R06.89] 05/17/2025 8:15 AM EDT Procedure Pulmonary Lab 5700 [place] [address] Dyspnea and respiratory abnormalities [R06.00, R06.89] 05/17/2025 8:30 AM EDT Office Visit Pulmonary Medicine [address] [place] [address] Dayanna Alatorre APRN.LEGAL COUNSEL [address] [place] [address] Return in about 1 month (around 05/17/2025). 06/10/2025 1:30 PM EDT Appointment Procedures [address] [place] [address] Debbie Gunn MD [address] [facility] [place] [address] 07/07/2025 9:00 AM [facility] Infusion Center Hematology/Oncolo gy [address] [facility] [place] [address] lab 07/14/2025 9:30 AM [facility] Hematology [address] [place] [address] Mitch Garcia MD [address] [place] [address] Schedule labs prior to Virtual visit with DR Garcia 07/15/2025 9:00 AM [facility] Infusion Center Hematology/Oncolo gy [address] [facility] [place] [address] Prolia injection day after RADHA virtual visit per staff message 08/23/2025 10:00 AM EST Office Visit Kidney Medicine [address] [place] [address] Shante Carroll, MARKETING DATABASE COORDINATOR.LEGAL COUNSEL [address] [facility] [place] [address] 6 month follow up 11/01/2025 2:00 PM EDT Office Visit Rheumatology 5700 [facility] [place] [address] Nany Bustillos MD [address] [facility] [place] [address] RA documented as of this encounter Visit Diagnoses Not on filedocumented in this encounter Care Teams Booking Prizer Relationship Specialty Start Date End Date Gregory, Muhamid M, MD PCP - General Internal Medicine 08/22/23 Janet Dillard DO Referring Family Medicine 07/14/21 Yvonne Baumann, RN [address] [place] [address] [place] [address] Specialty Renovation Plant Supervisor Hematology/Oncology 09/23/23 04/21/24 Mitch Garcia MD [address] [place] [address] [place] [address] Physician Hematology/Oncology 09/23/23 Hilda Templeton PALeonelC [address] [place] [address] [place] [address] Physician Preventive Maintenance Engineer Hematology/Oncology 09/23/23 Deepika Garcia LSW Transliterator 09/24/[address] [place] [address] [place] [address] Registered Dietitian Nutrition 10/22/23 Nia Snider, MALORIE Specialty Renovation Plant Supervisor Hematology/Oncology 04/22/24 documented as of this encounter
--- OUTSIDE RECORDS SUMMARY | 2025-04-19 08:36 | XMS_ITS | Encounter Summary ---
Author Organization [employer] Address [id number] [address] [place] [address] Care Team Providers Care Auto Clocks Repairer Name Role Phone Sunny Jenkins MD Primary Care Provider Encounter Details Date Type Department Care Team (Late st Contact Info) Description 04/12/2025 Orders Only [facility] [address] [place] [address] [place] [address] Julian Mathew, DO [address], [address], [place] [address] Acute recurrent pansinusitis Social History Tobacco Use Types Packs/Day Years Used Date Smoking Tobacco: Never Smokeless Tobacco: Never Alcohol Use Standard Drinks/Week Comments Not Currently [...] Office Visit [facility] [address] [place] [address] Sunny Jenkins MD 605 [place], [place] [address] documented as of this encounter Visit Diagnoses Diagnosis Acute recurrent pansinusitis documented in this encounter Additional Health Concerns Assessment Noted Time PHQ-9 Depression Total Score: 0 04/05/20 25 1:05 PM EDT documented as of this encounter Care Teams Auto Clocks Repairer Relationship Specialty Start Date End Date Sunny Jenkins MD [address] [facility] [place], [place] [address] PCP - General Internal Medicine 04/02/23 documented as of this encounter
--- OUTSIDE RECORDS SUMMARY | 2025-04-19 08:36 | XMS_ITS | Encounter Summary ---
Author Organization [facility] Address [address] [place] [address] Care Team Providers Care Classics Professor Name Role Phone Janet Dillard DO Unavailable Unavailabl Sunny Stone MD Primary Care Provider [phone] Yvonne Baumann RN Unavailable [phone] Mitch Garcia MD Unavailable [phone] Hilda TempletonC Unavailable [phone] Deepika Garcia Unavailable Unavailable Nona Lomax RD Unavailable [phone] Nia Snider RN Unavailable Unavailable Source Comments In the event this information is protected by the Federal Confidentiality of Alcohol and Drug AbusePatient Records regulations: The Federal rules restrict any use of the information to criminally investigate or prosecute any alcohol or drug abuse patient.[facility] Encounter Details Date Type Department Care Team (Latest Contact Info) Description 10/14/2023 H&P External-NonCCF Provider, External, PA-C Do not [...] place to sleep or slept in a long term (including now)? No 07/30/2023 Area Deprivation Index Answer Date Joauqin rded National Score (1-100), lower number is [...] EDT Specialty Pharmacy [facility] [address] [place], [place] 561654-b-100 [place] [address] Pharmacist, [facility]ty[facility] [address] [place] [id number] Refill - Kisqali [28DS] C005/1705/17/2025 8:00 AM EDT Procedure Pulmonary Lab 5700 [place] [address] Dyspnea and respiratory abnormalities [R06.00, R06.89] 05/17/2025 8:15 AM EDT Procedure Pulmonary Lab [address] [place] [address] Dyspnea and respiratory abnormalities [R06.00, R06.89] 05/17/2025 8:30 AM EDT Office Visit Pulmonary Medicine 5700 [place] [address] Dayanna Alatorre, PHYSICAL EDUCATION TEACHER.DIRECTOR AIRPORT [address] [place] [address] Return in about 1 month (around 05/17/2025). 06/10/2025 1:30 PM EDT Appointment Procedures [address] [place] [address] Debbie Gunn MD [address] [facility] [address] [place], [place] [address] [phone] 07/07/2025 9:00 AM [facility] Infusion Center Hematology/Oncolo gy [address] [facility] [place] [address] lab 07/14/2025 9:30 AM [facility] Hematology [address] [place] [address] Mitch Garcia MD [address] [place] [address] Schedule labs prior to Virtual visit with DR Garcia 07/15/2025 9:00 AM [facility] Hematology/Oncolo gy [address] [place] [address] Prolia injection day after RADHA virtual visit per staff message 08/23/2025 10:00 AM EST Office Visit Kidney Medicine [address] [place] [address] Shante Carroll, PHYSICAL EDUCATION TEACHER.DIRECTOR AIRPORT [address] [facility] [place] [address] 6 month follow up 11/01/2025 2:00 PM EDT Office Visit Rheumatology 5700 [facility] [place] [address] Nany Bustillos MD [address] [place] [address] RA documented as of this encounter Visit Diagnoses Not on filedocumented in this encounter Care Teams Classics Professor Relationship Specialty Start Date End Date Sunny Jenkins MD PCP - General Internal Medicine 08/22/23 Janet Dillard DO Referring Family Medicine 07/14/21 Yvonne Baumann RN [address] [place] [address] [place] [address] Specialty Automation Engineering Technician Hematology/Oncology 09/23/23 04/21/24 Mitch Garcia MD [address] [place] [address] [place] [address] Physician Hematology/Oncology 09/23/23 Hilda Templeton PALeonelC [address] [place] [address] [place] [address] Physician Sustainability Executive Director Hematology/Oncology 09/23/23 Deepika Garcia LSW Laborer Beam House 09/24/[address] [place] [address] [place] [address] Registered Dietitian Nutrition 10/22/23 Nia Snider, MALORIE Specialty Automation Engineering Technician Hematology/Oncology 04/22/24 documented as of this encounter
--- OUTSIDE RECORDS SUMMARY | 2025-04-19 08:36 | XMS_ITS | Encounter Summary ---
Author Organization [employer] Address [facility][id number] [address] [place] [address] Care Team Providers Care Embossing Tool Setter Name Role Phone Sunny Jenkins MD Primary Care Provider [phone] Encounter Details Date Type Department Care Team (Late st Contact Info) Description 02/10/2024 Telephone [facility] Rhe[facility] 57[address] [facility] [address] [place] [address] Mike Elliott CMA Social History Tobacco Use Types Packs/Day [...] got money to buy more. Never True 01/28/2024 Within the past 12 months th e food we bought just didn't last and we didn't have money to get more. Never True 01/28/2024 Purpose - Life Answer Date Recorded Purpose and direction in life Unknown Comments No Sex and Gender Information Value Date Recorded Sex Assigned at Not on file Legal Sex Female 11:30 AM EDT Gender Identity Not on file Sexual Orientation Not on file documented as of this encounter Miscellaneous Notes * Telephone Encounter - Mike Elliott CMA - 02/10/2024 11:03 AM EDT Patient is on methotrexate. Patient has been diagnosed breast cancer. Radiology doctor told her to discontinue the methotrexate and a different one recommended not to stop it, maybe cut it down. Would you please advise. * Telephone Encounter - Rajani Guerrero CMA - 02/10/2024 11:03 AM EDT Please review message for patient as Dr. Lewis is out of office until 03/02/24. * Telephone Encounter - Errol Barry MD - 02/10/2024 11:03 AM EDT Images from the original note were not included. I reviewed this patient's chart in detail. There is a previous telephone encounter from 01/28/24 regarding this concern. The patient's radiation oncology nurse called on behalf of Dr. Brittany Aponte (radiation oncology doctor) and asked if Dr. Lewis would be agreeable to having the patient stop methotrexate 3-4 weeks prior to radiation and 1 month after it is completed. Dr. Lewis reviewed this message and said that this plan was OK from his standpoint. He noted that if the patient had worsening pain during this period of time she should then contact our office. I copied a screenshot of the encounter below for reference. I don't believe his final recommendations were ever communicated back to the patient or the radiation oncology clinic. Please update the patient and the radiation oncology office of Dr. Lewis's message on 01/28/24. Errol Barry MD, MPH * Telephone Encounter - Leatha Pepper CNA - 02/10/2024 11:03 AM EDT I spoke with Pat on behalf of Dr. Brittany Aponte (radiation oncology) & she stated the patient did not want to undergo radiation. I then called the patient to get information on if she is stillusing MTX (patient is not) and she gave me information on new radiology oncologist ; Dr. Josef Fitzgerald [facility]. I spoke directly to Dr. Austin & he was agreeable to patient holding off onMTX. Dr. Austin stated if patient is having any arthritic flares she could be prescribed a low does of MTX, being that it shouldn't interfere with radiation. * Telephone Encounter - Zeny Urbina CMA - 02/10/2024 11:03 AM EDT Please review results for patient as Dr. Lewis is out of office until 03/02/24 * Telephone Encounter - Errol Barry MD - 02/10/2024 11:03 AM EDT Sounds good, thank you for the update on this. I don't think we need to take further action at thistime unless the patient has issues with increased arthritis symptoms. But it also sounds like her Radiation Oncologist is also prepared to step in and resume methotrexate should she have a flare. Errol Barry MD, MPH documented in this encounter Plan of Treatment Upcoming Encounters Date Type Department Care Team (Late st Contact Info) Description 06/22/2025 9:00 AM EDT Office Visit [facility] [address] [place] [address] [place] [address] Sunny Jenkins MD [address] [facility] [place] [address] documented as of this encounter Visit Diagnoses Not on filedocumented in this encounter Additional Health Concerns Assessment Noted Time PHQ-9 Depression Total Score: 3 05/14/20 23 3:00 PM EDT documented as of this encounter Care Teams Embossing Tool Setter Relationship Specialty Start Date End Date Sunny Jenkins MD [address] [facility] [place] [address] PCP - General Internal Medicine 04/02/23 documented as of this encounter
--- OUTSIDE RECORDS SUMMARY | 2025-04-19 08:36 | XMS_ITS | Encounter Summary ---
Author Organization [employer] [facility] tem Address [facility]-[id number] [address] [place] [address] Care Team Providers Care Pockets And Pieces Necktie Operator Name Role Phone Sunny Coleman MD Primary Care Provider [phone] Encounter Details Date Type Department Care Team (Late st Contact Info) Description 12/12/2023 [facility] [address] [place] [address] Will Dean CMA Social History [...] Telephone Encounter - Will Dean CMA - 12/12/2023 1:13 PM EDT Patient called into office looking to see if provider would like her to continue taking Eliques. She stated it was initially prescribed medication while in the hospital for her blood clot. Prescription does not have and refills and she is out. Please advise * Telephone Encounter - Sunny Coleman MD - 12/12/2023 1:13 PM EDT NEED TO CONTINUE MEDICATION Rx/order sent to pharmacy Please call and notify patient. Thanks, SUNNY COLEMAN MD 12/13/23 * Telephone Encounter - Will Dean CMA - 12/12/2023 1:13 PM EDT Patient was called and notified documented in this encounter Plan of Treatment Upcoming Encounters Date Type Department Care Team (Late st Contact Info) Description 06/22/2025 9:00 AM EDT Office Visit [facility] [address] [place] [phone] Sunny Coleman MD 605 [place] [address] documented as of this encounter Visit Diagnoses Not on filedocumented in this encounter Additional Health Concerns Assessment Noted Time PHQ-9 Depression Total Score: 3 05/14/20 23 3:00 PM EDT documented as of this encounter Care Teams Pockets And Pieces Necktie Operator Relationship Specialty Start Date End Date Sunny Coleman MD 605 [place] [address] PCP - General Internal Medicine 04/02/23 documented as of this encounter
--- OUTSIDE RECORDS SUMMARY | 2025-04-19 08:36 | XMS_ITS | Encounter Summary ---
Author Organization [employer] tem Address [id number] [address] [place] [address] Care Team Providers Care Electrician Apprentice Powerhouse Name Role Phone Sunny Jenkins MD Primary Care Provider [phone] Encounter Details Date Type Department Care Team (Late Contact Info) Description 11/14/2023 Orders Only [facility] [address] [place] [address] [place] [address] External, Scanning Provider Social History Tobacco Use Types Packs/Day Years [...] Encounters Date Type Department Care Team (Late Contact Info) Description 06/22/2025 9:00 AM EDT Office Visit [facility] [address] [place] [address] Sunny Jenkins MD 605 [place], [place] [phone] documented as of this encounter Procedures Procedure Name Priority Date/Time Associated Diagnosis Comments ECHO DOPPLER Routine 11/05/2023 1:57 PM EDT documented in this encounter Visit Diagnoses Not on filedocumented in this encounter Additional Health Concerns Assessment Noted Time PHQ-9 Depression Total Score: 3 05/14/20 3:00 PM EDT documented as of this encounter Care Teams Electrician Apprentice Powerhouse Relationship Specialty Start Date End Date Sunny Jenkins MD [address] [place] [address] PCP - General Internal Medicine 04/02/23 documented as of this encounter
--- OUTSIDE RECORDS SUMMARY | 2025-04-19 08:36 | XMS_ITS | Encounter Summary ---
Author Organization [employer] Address [id number] [address] [place] [address] Care Team Providers Care Show Jumping Instructor Name Role Phone Sunny Jenkins MD Primary Care Provider [phone] Encounter Details Date Type Department Care Team (Late Contact Info) Description 02/17/2025 Telephone [facility] Family Medicine [address] [place] [address] [address] Cristina Kent CNA Social History Tobacco Use Types Packs/Day Years Used Date Smoking Tobacco: Never Smokeless Tobacco: Never Alcohol Use Standard Drinks/Week Comments Yes 0 (1 standard drink = 0.6 oz pur e alcohol) rare PHQ-2 Answer Date Recorded Total Score 3 06/10/2024 Childcare Answer Date Recorded Childcare Unknown 02/04/2019 [...] Family Medicine [address] [place] [address] Sunny Jenkins MD [address] [place] [address] documented as of this encounter Visit Diagnoses Not on filedocumented in this encounter Additional Health Concerns Assessment Noted Time PHQ-9 Depression Total Score: 3 06/10/20 24 9:00 AM EDT documented as of this encounter Care Teams Show Jumping Instructor Relationship Specialty Start Date End Date Sunny Jenkins MD [address] [facility] [place] [address] PCP - General Internal Medicine 04/02/23 documented as of this encounter
--- OUTSIDE RECORDS SUMMARY | 2025-04-19 08:36 | XMS_ITS | Encounter Summary ---
Author Organization [facility] Address [address] [place] [address] Care Team Providers Care Lead Generation Marketing Manager Name Role Phone Janet Dillard DO Unavailable Unavailabl Sunny Stone MD Primary Care Provider [phone] Yvonne Baumann RN Unavailable [phone] Mitch Garcia MD Unavailable [phone] Hilda Templeton PA-C Unavailable [phone] Deepika Garcia Unavailable Unavailable Nona Lomax RD Unavailable [phone] Nia Snider RN Unavailable Unavailable Source Comments In the event this information is protected by the Federal Confidentiality of Alcohol and Drug AbusePatient Records regulations: The Federal rules restrict any use of the information to criminally investigate or prosecute any alcohol or drug abuse patient.[facility] Encounter Details Date Type Department Care Team (Late st Contact Info) Description 09/23/2023 Patient [facility] Radiology Procedure [address] [facility] [place] [address] Provider, [facility] You are scheduled for a Mediport Placement, On 09/27/2023. Social History Tobacco Use Types Packs/Day Years [...] lower risk 9 01/29/2023 Data from: https://www.neighborhoodatlas.medicine.[facility].edu/. Last address used for [...] AM EDT Specialty Pharmacy [facility] [address] [place], [place] 641344-[address] [place], [place] [id number] Pharmacist, [facility] [address] [place] [address] Refill - Kisqali [28DS] C005/1705/17/2025 8:00 AM EDT Procedure Pulmonary Lab [address] [place] [address] Dyspnea and respiratory abnormalities [R06.00, R06.89] 05/17/2025 8:15 AM EDT Procedure Pulmonary Lab [address] [place] [address] Dyspnea and respiratory abnormalities [R06.00, R06.89] 05/17/2025 8:30 AM EDT Office Visit Pulmonary Medicine [address] [facility] [place] [address] Dayanna Alatorre APRN.VITREO RETINAL SURGEON [address] [facility] [place] [place] [address] Return in about 1 month (around 05/17/2025). 06/10/2025 1:30 PM EDT Appointment Procedures [address] [place] [address] Debbie Gunn MD [address] [place] [address] [place] [address] 07/07/2025 9:00 AM [facility] Infusion Center Hematology/Oncolo gy [address] [facility] [address] [place] [address] lab 07/14/2025 9:30 AM [facility] Hematology [address] [place] [address] Mitch Garcia MD [address] [place] [address] Schedule labs prior to Virtual visit with DR Garcia 07/15/2025 9:00 AM [facility] Center Hematology/Oncolo gy [address] [place] [address] Prolia injection day after RADHA virtual visit per staff message 08/23/2025 10:00 AM EST Office Visit Kidney Medicine [address] [place] [address] Shante Carroll, UNION CONTRACT REPRESENTATIVE.VITREO RETINAL SURGEON [address] [facility] [place] [address] 6 month follow up 11/01/2025 2:00 PM EDT Office Visit Rheumatology [address] [facility] [place] [address] Nany Bustillos MD [address] [facility] [place] [address] RA documented as of this encounter Visit Diagnoses Not on filedocumented in this encounter Care Teams Lead Generation Marketing Manager Relationship Specialty Start Date End Date Gregory, Muhamid M, MD PCP - General Internal Medicine 08/22/23 Janet Dillard DO Referring Family Medicine 07/14/21 Yvonne Baumann, RN [address] [place] [address] [place] [address] Specialty Parts Sales Associate Hematology/Oncology 09/23/23 04/21/24 Mitch Garcia MD [address] [place] [address] [place] [address] Physician Hematology/Oncology 09/23/23 Hilda Templeton PALeonelC [address] [place] [address] [place] [address] Physician Zigzag Topstitcher Hematology/Oncology 09/23/23 Deepika Garcia LSW Manager Mining 09/24/[address] [place] [address] [place] [address] Registered Dietitian Nutrition 10/22/23 Nia Snider, MALORIE Specialty Parts Sales Associate Hematology/Oncology 04/22/24 documented as of this encounter
--- OUTSIDE RECORDS SUMMARY | 2025-04-19 08:36 | XMS_ITS | Encounter Summary ---
Author Organization [employer] Address [id number] [address] [place] [address] Care Team Providers Care Arresting Gear Operator Name Role Phone Sunny Jenkins MD Primary Care Provider [phone] Encounter Details Date Type Department Care Team (Late Contact Info) Description 01/10/2024 Orders Only [facility] Family Medicine [address] [place] [address] External, Scanning Provider Social History [...] Family Medicine [address] [address] Sunny Jenkins MD [address] [place], [place] [address] documented as of this encounter Procedures Procedure Name Priority Date/Time Associated Diagnosis Comments ELECTROCARDIOGRAM REPORT Routine 024 12:36 PM EDT documented in this encounter Visit Diagnoses Not on filedocumented in this encounter Additional Health Concerns Assessment Noted Time PHQ-9 Depression Total Score: 3 05/14/20 23 3:00 PM EDT documented as of this encounter Care Teams Arresting Gear Operator Relationship Specialty Start Date End Date Sunny Jenkins MD [address] [place] [address] PCP - General Internal Medicine 04/02/23 documented as of this encounter
--- OUTSIDE RECORDS SUMMARY | 2025-04-19 08:36 | XMS_ITS | Encounter Summary ---
Author Organization [employer] Address [facility][id number] [address] [place] [address] Care Team Providers Care Ironer Machine Name Role Phone Sunny Jenkins MD Primary Care Provider [phone] Encounter Details Date Type Department Care Team (Late Contact Info) Description 02/03/2024 Orders Only [facility] Oncology - Radiation Oncology [address] [place] [phone] Ref Prov, [place] [address] Social History Tobacco Use Types Packs/Day Years [...] Family Medicine [address] [place] [address] [place] [address] Sunny Jenkins MD [address], [place], [place] [address] documented as of this encounter Procedures Procedure Name Priority Date/Time Associated Diagnosis Comments SURGICAL PATHOLOGY Routine 02/03/2024 12:30 PM EDT SURGICAL PATHOLOGY Routine 02/03/2024 12:09 PM EDT SURGICAL PATHOLOGY Routine 02/03/2024 12:01 PM EDT EXTERNAL LAB ORDERS / RESULTS Routine 02/03/2024 11:59 AM EDT SURGICAL PATHOLOGY Routine 02/03/2024 11:[address] ABDOMEN AND PELVIS W CONT Routine 02/03/2024 11:[address] CHEST W CONT Routine 02/03/2024 11:51 AM EDT documented in this encounter Results * Surgical Pathology (02/03/2024 12:30 PM EDT) us Not In System Ref Prov PATHOLOGY/CYTOLOGY ORDERA BLES Final Result * Surgical Pathology (02/03/2024 12:09 PM EDT) us Not In System Ref Prov PATHOLOGY/CYTOLOGY ORDERA BLES Final Result * Surgical Pathology (02/03/2024 12:01 PM EDT) us Not In System Ref Prov PATHOLOGY/CYTOLOGY ORDERA BLES Final Result * External Lab Orders / Results (02/03/2024 11:59 AM EDT) us Not In System Ref Prov LAB ORDERABLES Final Res ult * Surgical Pathology (02/03/2024 11:55 AM EDT) us Not In System Ref Prov PATHOLOGY/CYTOLOGY ORDERA BLES Final Result * CT abdomen and pelvis with contrast (02/03/2024 11:53 AM EDT) Anatomical Region Laterality Modality Body, Abdomen, Body Covera N/A Compu tico Tomography us Not In System Ref Prov IMG CT ORDERABLES Final R esult * CT chest with contrast (02/03/2024 11:51 AM EDT) Anatomical Region Laterality Modality Body, Lung, Chest, Body Covera N/A C omputed Tomography us Not In System Ref Prov IMG CT ORDERABLES Final R esult documented in this encounter Visit Diagnoses Not on filedocumented in this encounter Additional Health Concerns Assessment Noted Time PHQ-9 Depression Total Score: 3 05/14/20 23 3:00 PM EDT documented as of this encounter Care Teams Ironer Machine Relationship Specialty Start Date End Date Sunny Jenkins MD [address] [facility] [address] [facility] [place] [place] [address] PCP - General Internal Medicine 04/02/23 documented as of this encounter
--- OUTSIDE RECORDS SUMMARY | 2025-04-19 08:36 | XMS_ITS | Encounter Summary ---
Author Organization [employer] Address [id number] [address] [place] [address] Care Team Providers Care Customer Support Representative Name Role Phone Sunny Jenkins MD Primary Care Provider [phone] Encounter Details Date Type Department Care Team (Late st Contact Info) Description 01/28/2024 Telephone [facility] Rheumatology [address] [facility] [address] [place] [address] Leatha Pepper CNA Social History Tobacco Use Types Packs/Day [...] encounter Miscellaneous Notes * Telephone Encounter - Leatha Pepper CNA - 01/28/2024 11:26 AM EDT Pat (radiation nurse) from [facility] called on behalf Dr. Brittany Aponte. Pat stated due to possible radiation Dr. Aponte wants the patient to stop using methotrexate 3-4 weeks prior & 1 month after it is completed. Pat asked would Dr. Barry be agreeable with these changes? Any question give their office a call at [phone]. * Telephone Encounter - Errol Barry MD - 01/28/2024 11:26 AM EDT I reviewed this patient's chart, and I believe she follows with Dr. Lewis. Could we route this question to him to review? Thanks- Errol Barry MD, MPH documented in this encounter Plan of Treatment Upcoming Encounters Date Type Department Care Team (Late st Contact Info) Description 06/22/2025 9:00 AM EDT Office Visit [facility] Family Medicine [address] [place] [phone] Sunny Jenkins MD [address] [place] [address] documented as of this encounter Visit Diagnoses Not on filedocumented in this encounter Additional Health Concerns Assessment Noted Time PHQ-9 Depression Total Score: 3 05/14/20 23 3:00 PM EDT documented as of this encounter Care Teams Customer Support Representative Relationship Specialty Start Date End Date Sunny Jenkins MD [address] [place] [address] PCP - General Internal Medicine 04/02/23 documented as of this encounter
--- OUTSIDE RECORDS SUMMARY | 2025-04-19 08:36 | XMS_ITS | Encounter Summary ---
Author Organization [facility] Address [facility][id number] [address] [place] [address] Care Team Providers Care Gasoline Locomotive Crane Operator Name Role Phone Sunny Jenkins MD Primary Care Provider [phone] Reason for Visit * Reason Onset Date Comments Sinusitis 04/12/2025 Encounter Details Date Type Department Care Team (Late st Contact Info) Description 04/12/2025 Telephone [facility] Family Medicine [address] [place] [address] [place] [address] Merary Resendiz CNA Sinusitis Social History Tobacco Use Types Packs/Day Years [...] encounter Miscellaneous Notes * Telephone Encounter - Merary Resendiz CNA - 04/12/2025 8:17 AM EDT Patient was seen on 04/05/2025 for sinusitis and stated she finished antibiotic and would like another antibiotic due still not feeling better. Please advise. * Telephone Encounter - Julian Mathew DO - 04/12/2025 8:17 AM EDT Prescription for cefdinir 300 mg 1 capsule twice daily for 7 days additionally sent into pharmacy to continue to take medication to help with symptoms. Please let patient know. Thank you * Telephone Encounter - Cristina Kent CNA - 04/12/2025 8:17 AM EDT Spoke with patient, she verbalized understanding documented in this encounter Plan of Treatment Upcoming Encounters Date Type Department Care Team (Late st Contact Info) Description 06/22/2025 9:00 AM EDT Office Visit [facility] Family Medicine [address] [place] [address] Sunny Jenkins MD [address] [place] [address] documented as of this encounter Visit Diagnoses Not on filedocumented in this encounter Additional Health Concerns Assessment Noted Time PHQ-9 Depression Total Score: 0 04/05/20 25 1:05 PM EDT documented as of this encounter Care Teams Gasoline Locomotive Crane Operator Relationship Specialty Start Date End Date Sunny Jenkins MD [address] [facility] [place] [place], [place] [address] PCP - General Internal Medicine 04/02/23 documented as of this encounter
--- OUTSIDE RECORDS SUMMARY | 2025-04-19 08:36 | XMS_ITS | Encounter Summary ---
Author Organization [facility] Address [address] [place] [address] Care Team Providers Care Ecological Risk Assessor Name Role Phone Janet Dillard DO Unavailable Unavailabl Sunny Stone MD Primary Care Provider [phone] Mitch Garcia MD Unavailable [phone] Deepika Garcia Unavailable Unavailable Nona Lomax RD Unavailable [phone] Nia Snider RN Unavailable Unavailable Source Comments In the event this information is protected by the Federal Confidentiality of Alcohol and Drug AbusePatient Records regulations: The Federal rules restrict any use of the information to criminally investigate or prosecute any alcohol or drug abuse patient.[facility] Encounter Details Date Type Department Care Team (Late st Contact Info) Description 07/07/2024 Patient [facility] HB-3 [address] [place] [address] Jackelyn Grover RPh At your next appointment, choose [facility]. Social History Tobacco Use Types [...] place to sleep or slept in a half-way (including now)? No 07/30/2023 Area Deprivation Index Answer Date Joaquin rded National Score (1-100), lower number is lower ri sk 92 01/29/2023 State Score (1-10), lower number is lower risk 9 01/29/2023 Data from: https://www.neighborhoodatlas.medicine.[facility].edu/. Last address used for calculation Armando Mayen [...] AM EDT Specialty Pharmacy [facility] [address] [place], [place] [address]-[address] [place] [address] Pharmacist, [facility] [address] [place] [address] Refill - Kisqali [28DS] C005/1705/17/2025 8:00 AM EDT Procedure Pulmonary Lab [address] [place] [address] Dyspnea and respiratory abnormalities [R06.00, R06.89] 05/17/2025 8:15 AM EDT Procedure Pulmonary Lab [address] [place] [address] Dyspnea and respiratory abnormalities [R06.00, R06.89] 05/17/2025 8:30 AM EDT Office Visit Pulmonary Medicine [address] [place], [place] [phone] Dayanna Alatorre APRN.TELECOMMUNICATIONS ANALYST [address] [place] [place] [address] Return in about 1 month (around 05/17/2025). 06/10/2025 1:30 PM EDT Appointment Procedures [address] [place] [address] Debbie Gunn MD [address] [facility] [facility] [address] [place], [place] [address] 07/07/2025 9:00 AM [facility] Infusion Center Hematology/Oncolo gy [address] [place] [address] lab 07/14/2025 9:30 AM [facility] Hematology [address] [place] [address] Mitch Garcia MD [address] [place] [address] Schedule labs prior to Virtual visit with DR Garcia 07/15/2025 9:00 AM [facility] Center Hematology/Oncolo gy [address] [place] [address] Prolia injection day after RADHA virtual visit per staff message 08/23/2025 10:00 AM EST Office Visit Kidney Medicine [address] [place] [address] Shante Carroll APRN.TELECOMMUNICATIONS ANALYST [address] [facility] [place] [address] 6 month follow up 11/01/2025 2:00 PM EDT Office Visit Rheumatology 5700 [facility] [place] [address] Nany Bustillos MD [address] [facility] [place] [address] RA documented as of this encounter Visit Diagnoses Not on filedocumented in this encounter Care Teams Ecological Risk Assessor Relationship Specialty Start Date End Date Sunny Jenkins MD PCP - General Internal Medicine 08/22/23 Janet Dillard DO Referring Family Medicine 07/14/21 Mitch Garcia MD [address] [facility] [place] [address] Physician Hematology/Oncology 09/23/23 Deepika Garcia LSW Button Inspector 09/24/[address] [place] [address] [place] [address] Registered Dietitian Nutrition 10/22/23 Nia Snider, RN Specialty Mechanic Driver Hematology/Oncology 04/22/24 documented as of this encounter
--- OUTSIDE RECORDS SUMMARY | 2025-04-19 08:36 | XMS_ITS | Encounter Summary ---
Author Organization [facility] Address [address] [place] [address] Care Team Providers Care Training Assistant Name Role Phone Chris Amanda Primary Care Provider [phone] Janet Dillard DO Unavailable UnavailSunny Coates MD Primary Care Provider [phone] Yvonne Baumann RN Unavailable [phone] Mitch Garcia MD Unavailable [phone] Hilda Templeton-C Unavailable [phone] Deepika Garcia Unavailable Unavailable Nona Lomax RD Unavailable [phone] Nia Snider RN Unavailable Unavailable Source Comments In the event this information is protected by the Federal Confidentiality of Alcohol and Drug AbusePatient Records regulations: The Federal rules restrict any use of the information to criminally investigate or prosecute any alcohol or drug abuse patient.[facility] Encounter Details Date Type Department Care Team (Late st Contact Info) Description 03/26/2019 Patient Msg Orthopaedics [address] [address] Sheila Trevino MD [address] [place] [id number] Appointment Cancellation Request Social History Tobacco Use Types Packs/Day Years Used Date Smoking Tobacco: Never Smokeless Tobacco: Never Alcohol Use Standard Drinks/Week Comments Yes 0 (1 standard drink = 0.6 oz pure alcohol) socially- couple times per year PHQ-2 Answer Date Recorded PHQ2 Score 0 03/31/2018 Comments No Sex and Gender Information Value Date Recorded Sex Assigned at Female 08/14/2024 10:40 AM EST Legal Sex Female 8:08 AM EST Gender Identity Not on file Sexual Orientation Straight 08/14/2024 10 :40 AM EST documented as of this encounter Functional Status * Are you deaf or do you have serious difficulty hearing? Answer Date of Assessment Author No 04/03/2018 3:28 PM EDT Leisa Hough RN * Are you blind or do you have serious difficulty seeing, even when wearing glasses? Answer Date of Assessment Author No 04/03/2018 3:28 PM EDT Leisa Hough RN * Do you have serious difficulty walking or climbing stairs? Answer Date of Assessment Author Yes 04/03/2018 3:28 PM EDT Leisa Hough RN * Do you have difficulty dressing or bathing? Answer Date of Assessment Author No 04/03/2018 3:28 PM EDT Leisa Hough RN * Because of a physical, mental, or emotional condition, do you have difficulty doing errands alone such as visiting a doctor's office or shopping? Answer Date of Assessment Author No 04/03/2018 3:28 PM EDT Leisa Hough RN documented as of this encounter Mental Status * Because of a physical, mental, or emotional condition, do you have serious difficulty concentrating, remembering, or making decisions? Answer Entry Date Author No 04/03/2018 3:28 PM EDT Leisa Hough RN documented in this encounter Plan of Treatment Upcoming Encounters Date Type Department Care Team (Late st Contact Info) Description 05/10/2025 7:15 AM EDT Specialty Pharmacy [facility] [address] [place] [address] [place] [address] Pharmacist, [facility] 1 [address] [facility] [address] [place] [address] Refill - Dalia [28DS] C005/1705/17/2025 8:00 AM EDT Procedure Pulmonary Lab [address] [facility] [place] [address] Dyspnea and respiratory abnormalities [R06.00, R06.89] 05/17/2025 8:15 AM EDT Procedure Pulmonary Lab [address] [facility] [place] [address] Dyspnea and respiratory abnormalities [R06.00, R06.89] 05/17/2025 8:30 AM EDT Office Visit Pulmonary Medicine [address] [facility] [place] [address] Dayanna Alatorre APRN.TUBE MAKER [address] [facility] [place] [address] Return in about 1 month (around 05/17/2025). 06/10/2025 1:30 PM EDT Appointment Procedures [address] [place] [address] Debbie Gunn MD [address] [facility] [place] [address] 07/07/2025 9:00 AM [facility] Infusion Center Hematology/Oncolo gy [address] [facility] [address] lab 07/14/2025 9:30 AM [facility] Hematology [address] [place] [address] Mitch Garcia MD [address] [place] [address] Schedule labs prior to Virtual visit with DR Garcia 07/15/2025 9:00 AM [facility] Infusion Center Hematology/Oncolo gy [address] [facility] [facility] [address] Prolia injection day after RADHA virtual visit per staff message 08/23/2025 10:00 AM EST Office Visit Kidney Medicine [address] [facility] [place] [address] Shante Carroll APRN.TUBE MAKER [address] [facility] [place] [address] 6 month follow up 11/01/2025 2:00 PM EDT Office Visit Rheumatology [address] [facility] [place] [address] Nany Bustillos MD [address] [facility] [place] [facility] [place] [address] RA documented as of this encounter Visit Diagnoses Not on filedocumented in this encounter Additional Health Concerns Infection Onset Date Last Indicated Resolved Time COVID-19 Rule-Out 03/14/2022 03/14/2022 03/14/2022 4:49 PM EDT documented as of this encounter Care Teams Training Assistant Relationship Specialty Start Date End Date Chris Amanda PCP - General 01/28/07 08/21/23 Sunny Jenkins MD PCP - General Internal Medicine 08/22/23 Janet Dillard DO Referring Family Medicine 07/14/21 Yvonne Baumann RN [address] [facility] [place] [address] Specialty Repair Operator Hematology/Oncology 09/23/23 04/21/24 Mitch Garcia MD [address] [place] [address] [place] [address] Physician Hematology/Oncology 09/23/23 Hilda Templeton, PALeonelC [address] [facility] [place] [address] Physician Greige Goods Inspector Hematology/Oncology 09/23/23 Deepika Garcia LSW Pneumatic Tester Mechanic 09/24/[address] [place] [address] [place] [address] Registered Dietitian Nutrition 10/22/23 Nia Snider, RN Specialty Repair Operator Hematology/Oncology 04/22/24 documented as of this encounter
--- OUTSIDE RECORDS SUMMARY | 2025-04-19 08:36 | XMS_ITS | Encounter Summary ---
Author Organization [employer] tem Address [facility] [id number] [address] [place] [address] Care Team Providers Care Metallographic Technician Name Role Phone Sunny Jenkins MD Primary Care Provider [phone] Encounter Details Date Type Department Care Team (Late Contact Info) Description 01/09/2024 Telephone [facility] [address] [place] [address] [place] [address] Will Dean, KELLEY Social History Tobacco Use Types Packs/Day Years [...] Family Medicine [address] [place] [address] Sunny Jenkins MD [address] [place] [address] documented as of this encounter Visit Diagnoses Not on filedocumented in this encounter Additional Health Concerns Assessment Noted Time PHQ-9 Depression Total Score: 3 05/14/20 23 3:00 PM EDT documented as of this encounter Care Teams Metallographic Technician Relationship Specialty Start Date End Date Sunny Jenkins MD [address] [place] [address] PCP - General Internal Medicine 04/02/23 documented as of this encounter
--- OUTSIDE RECORDS SUMMARY | 2025-04-19 08:36 | XMS_ITS | Encounter Summary ---
Author Organization [employer] tem Address [facility] [place]-[id number] [address] [place] [address] Care Team Providers Care Supervisor Stage Carpentry Name Role Phone Sunny Jenkins MD Primary Care Provider [phone] Encounter Details Date Type Department Care Team (Latest Contact Info) Description 04/05/2025 Travel Social History Tobacco Use Types Packs/Day [...] [facility] [address] [place] [address] Sunny Jenkins MD [address] [facility] [address] documented as of this encounter Visit Diagnoses Not on filedocumented in this encounter Additional Health Concerns Assessment Noted Time PHQ-9 Depression Total Score: 0 04/05/20 25 1:05 PM EDT documented as of this encounter Care Teams Supervisor Stage Carpentry Relationship Specialty Start Date End Date Sunny Jenkins MD [address] [place] [address] PCP - General Internal Medicine 04/02/23 documented as of this encounter
--- OUTSIDE RECORDS SUMMARY | 2025-04-19 08:36 | XMS_ITS | Encounter Summary ---
Author Organization [employer] tem Address [id number] [address] [place] [address] Care Team Providers Care Well Drill Operator Rotary Drill Name Role Phone Sunny Jenkins MD Primary Care Provider [phone] Encounter Details Date Type Department Care Team (Late st Contact Info) Description 12/30/2023 Telephone [facility] [address] [place] [address] [place] [address] Steph Rendon CMA Social History Tobacco Use Types Packs/Day [...] encounter Miscellaneous Notes * Telephone Encounter - Steph Rendon CMA - 12/30/2023 10:55 AM EDT Patient called stating she has been fighting a UTI now for a month and still having symptoms and can't get rid of it. She has done two rounds of medication and has missed two of her chemo treatments.She doesn't know what to do. They told her she has to do treatment tomorrow. Please advise? * Telephone Encounter - Sunny Jenkins MD - 12/30/2023 10:55 AM EDT Patient should set up an appointment to further evaluate. In person with plans for pelvic exam. It may not be a UTI and needs a provider to assess. Can put in with emily if prefers female provider or obgyn consult if needed. ThanksSUNNY MD 12/30/23 * Telephone Encounter - Steph Rendon CMA - 12/30/2023 10:55 AM EDT Called patient and explained. She states its a yeast infection not UTI but does not understand why she needs the exam but would call back to schedule. documented in this encounter Plan of Treatment Upcoming Encounters Date Type Department Care Team (Late st Contact Info) Description 06/22/2025 9:00 AM EDT Office Visit [facility] [address] [place] [address] Sunny Jenkins MD [address] [facility] [address] [place] [address] documented as of this encounter Visit Diagnoses Not on filedocumented in this encounter Additional Health Concerns Assessment Noted Time PHQ-9 Depression Total Score: 3 05/14/20 23 3:00 PM EDT documented as of this encounter Care Teams Well Drill Operator Rotary Drill Relationship Specialty Start Date End Date Sunny Jenkins MD [address] [facility] [place] [address] PCP - General Internal Medicine 04/02/23 documented as of this encounter
--- OUTSIDE RECORDS SUMMARY | 2025-04-19 08:36 | XMS_ITS | Encounter Summary ---
Author Organization [facility] [employer] tem Address [facility] [id number] [address] [place] [address] Care Team Providers Care Gas Engineer Name Role Phone Sunny Jenkins MD Primary Care Provider [phone] Reason for Referral * Physical Therapy (Routine) - Closed Specialty Diagnoses / Procedures Referred By Contdanita t Referred To Contact Rehabilitation Diagnoses Lymphedema Sunny Jenkins MD [address] [place] [address] Phone: tel: fax: Referral ID Status Reason Start Date Expiration Date V isits Requested Visits Authorized [id number] Closed Specialty Services Required 08/12/2024 02/10/2025 1 1 Encounter Details Date Type Department Care Team (Late st Contact Info) Description 08/12/2024 Orders Only [facility] [address] [place] [address] Sunny Jenkins MD [address] [place] [address] Lymphedema (Primary Dx) Social History Tobacco Use Types [...] Office Visit [facility] [address] [place] [phone] Sunny Jenkins MD [address] [place], [place] [id number] Scheduled Referrals Name Type Priority Associated Diagnoses Order Schedule Ambulatory referral to Physical Therapy ([facility]) Outpatient Referral Routine Lymphedema 1 Occurrences starting 08/12/2024 until 08/12/2025 documented as of this encounter Visit Diagnoses Diagnosis Lymphedema- Primary Other noninfectious lymphedema documented in this encounter Additional Health Concerns Assessment Noted Time PHQ-9 Depression Total Score: 3 06/10/20 24 9:00 AM EDT documented as of this encounter Care Teams Gas Engineer Relationship Specialty Start Date End Date Sunny Jenkins MD [address] [place] [address] PCP - General Internal Medicine 04/02/23 documented as of this encounter
--- OUTSIDE RECORDS SUMMARY | 2025-04-19 08:36 | XMS_ITS | Encounter Summary ---
Author Organization [employer] tem Address [facility]-[id number] [address] [place] [address] Care Team Providers Care Monogram And Letter Paster Name Role Phone Sunny Jenkins MD Primary Care Provider [phone] Encounter Details Date Type Department Care Team (Late Contact Info) Description 08/04/2024 Orders Only [facility] [address] [place] [phone] External, Scanning Provider Social History Tobacco Use [...] Family Medicine [address] [address] Sunny Jenkins MD [address] [place], [place] [id number] documented as of this encounter Visit Diagnoses Not on filedocumented in this encounter Additional Health Concerns Assessment Noted Time PHQ-9 Depression Total Score: 3 06/10/20 24 9:00 AM EDT documented as of this encounter Care Teams Monogram And Letter Paster Relationship Specialty Start Date End Date Sunny Jenkins MD [address] [place] [address] PCP - General Internal Medicine 04/02/23 documented as of this encounter
--- OUTSIDE RECORDS SUMMARY | 2025-04-19 08:36 | XMS_ITS | Encounter Summary ---
Author Organization [facility] Address [facility] [id number] [address] [place] [address] Care Team Providers Care Risk Intern Name Role Phone Sunny Jenkins MD Primary Care Provider [phone] Encounter Details Date Type Department Care Team (Late st Contact Info) Description 01/09/2024 Telephone [facility] [address] [place] [address] Will Dean CMA Social History [...] Telephone Encounter - Will Dean CMA - 01/09/2024 11:55 AM EDT Home health called into [place] line with chief complaints by the patient of right upper quadrant pain. She stated patient had a bowel movement yestersay and is experiencing bloating, cramping and is in agreat deal of pain. Nurse notated that patient is currently on a riund of Keflex antibiotics but was not specific on who/what put her on this. Nurse also wanted noted patient did not have her chemo yesterday either. Please advise * Telephone Encounter - MIR Sheppard - 01/09/2024 11:55 AM EDT Recent labs reviewed from earlier this month. I can place an order for CT scan but it would not be urgent. If she is having a lot of pain, ER would be the best option. * Telephone Encounter - Will Dean CMA - 01/09/2024 11:55 AM EDT Patient was called to give notification about the CT scan and ER if pain persists. She explained she is feeling much better but there is still some pain. Patient stated she had been in the ER at [facility] 01/08/2024 (records requested) and was diagnosed with diverticulitis.Patient had questioned being on two doses of antibiotics and if she should be on them both at the same time. She did state that she had a ct preformed at that time also with [place]. Chemo was not preformed due to her having a cyst like area on her abdomen that the Oncologist wanted to be lanced before patient received her next round of chemo. (The with holding of the chemo was not due to her being in any kind of pain) Both records are requested and will be uploaded for provider. * Telephone Encounter - MIR Sheppard - 01/09/2024 11:55 AM EDT Thank you. documented in this encounter Plan of Treatment Upcoming Encounters Date Type Department Care Team (Late st Contact Info) Description 06/22/2025 9:00 AM EDT Office Visit [facility] [address] [place] [address] Sunny Jenkins MD [address] [place] [address] documented as of this encounter Visit Diagnoses Not on filedocumented in this encounter Additional Health Concerns Assessment Noted Time PHQ-9 Depression Total Score: 3 05/14/20 23 3:00 PM EDT documented as of this encounter Care Teams Risk Intern Relationship Specialty Start Date End Date Sunny Jenkins MD [address] [facility] [place] [address] PCP - General Internal Medicine 04/02/23 documented as of this encounter
--- OUTSIDE RECORDS SUMMARY | 2025-04-19 08:36 | XMS_ITS | Encounter Summary ---
Author Organization [facility] Address [address] [place] [address] Care Team Providers Care Chemical Technician Name Role Phone Chris Amanda Primary Care Provider [phone] Janet Dillard DO Unavailable UnavailSunny Coates MD Primary Care Provider [phone] Yvonne Baumann RN Unavailable [phone] Mitch Garcia MD Unavailable [phone] Hilda Templeton PA-C Unavailable [phone] Deepika Garcia Unavailable Unavailable Nona Lomax RD Unavailable [phone] Nia Snider RN Unavailable Unavailable Source Comments In the event this information is protected by the Federal Confidentiality of Alcohol and Drug AbusePatient Records regulations: The Federal rules restrict any use of the information to criminally investigate or prosecute any alcohol or drug abuse patient.[facility] Reason for Visit * Reason Comments Radiology XR Encounter Details Date Type Department Care Team (Late st Contact Info) Description 03/23/2022 Radiology Radiology [address] [place] [address] Codie Rice, RT(R) Radiology XR Social History Tobacco Use Types Packs/Day Years [...] place to sleep or slept in a alf (including now)? No 03/14/2022 Area Deprivation Index Answer Date Joaquin rded National Score (1-100), lower number is lower ri sk 84 03/23/2022 State Score (1-10), lower number is lower risk N ot on file 03/23/2022 Data from: https://www.neighborhoodatlas.medicine.[facility].edu/. Last address used for calculation Armando [...] suspected to have Coronavirus/COVID-19? No / Unsure 03/23/2022 3:54 PM EDT documented as of this encounter [...] 3:33 PM EDT Michell Coffey RN * Because of a physical, mental, or emotional condition, do you have difficulty doing errands alone such as visiting a doctor's office or shopping? Answer Date of Assessment Author No 03/16/2022 3:33 PM Yee Ferrara RN documented as of this encounter Mental Status * Because of a physical, mental, or emotional condition, do you have serious difficulty concentrating, remembering, or making decisions? Answer Entry Date Author No 03/16/2022 3:33 PM Michell Ferrara RN documented in this encounter Progress Notes * Codie Rice, RT(R) - 03/23/2022 4:01 PM EDT Radiology Service Progress Note PATIENT NAME: Yue Solomon DATE OF SERVICE: March 23, 2022 TIME: 4:01 PM PATIENT IDENTITY VERIFICATION COMPLETED USING TWO [...] IMPLANT DATA REVIEWED: Not Applicable RADIOLOGY DEPARTMENT: General X-ray: Exam(s) Completed: Pelvis X-Ray: Pelvis with Hip Right PERIPHERAL IV DATA: Not applicable SIGNED BY: Codie Rice RT(R) March 23, 2022 4:01 PM documented in this encounter Plan of Treatment Upcoming Encounters Date Type Department Care Team (Late st Contact Info) Description 05/10/2025 7:15 AM EDT Specialty Pharmacy [facility] [address] [place], [place] [address]-b-[address] [place] [address] Pharmacist, [facility] [address] [place] [address] [address] [place], [place] [id number] Refill - Kisqali [28DS] C005/1705/17/2025 8:00 AM EDT Procedure Pulmonary Lab [address] [facility] [place] [place] [address] Dyspnea and respiratory abnormalities [R06.00, R06.89] 05/17/2025 8:15 AM EDT Procedure Pulmonary Lab [address] [facility] [place] [address] Dyspnea and respiratory abnormalities [R06.00, R06.89] 05/17/2025 8:30 AM EDT Office Visit Pulmonary Medicine [address] [place] [address] Dayanna Alatorre APRN.GLUE JOINTER OPERATOR [address] [facility] [place] [address] Return in about 1 month (around 05/17/2025). 06/10/2025 1:30 PM EDT Appointment Procedures [address] [place] [address] Debbie Gunn MD [address] [facility] [address] [place], [place] [id number] 07/07/2025 9:00 AM EST Infusion Center Hematology/Oncolo gy [address] [place] [address] lab 07/14/2025 9:30 AM [facility] [address] [place] [address] Mitch Garcia MD [address] [facility] [place] [address] Schedule labs prior to Virtual visit with DR Garcia 07/15/2025 9:00 AM [facility] Hematology/Oncolo gy [address] [place] [address] Prolia injection day after RADHA virtual visit per staff message 08/23/2025 10:00 AM EST Office Visit Kidney Medicine [address] [place] [address] Shante Carroll APRN.GLUE JOINTER OPERATOR [address] [facility] [place] [address] 6 month follow up 11/01/2025 2:00 PM EDT Office Visit Rheumatology [address] [place] [address] Nany Bustillos MD [address] [place] [address] RA documented as of this encounter Visit Diagnoses Not on filedocumented in this encounter Care Teams Chemical Technician Relationship Specialty Start Date End Date Chris Amanda PCP - General 01/28/07 08/21/23 Sunny Jenkins MD PCP - General Internal Medicine 08/22/23 Janet Dillard DO Referring Family Medicine 07/14/21 Yvonne Baumann, RN [address] [place] [address] Specialty Correctional Maintenance Technician Hematology/Oncology 09/23/23 04/21/24 Mitch Garcia MD [address] [facility] [place] [address] Physician Hematology/Oncology 09/23/23 Hilda Templeton PA-C [address] [place] [address] [place] [address] Physician Mold Clamper Hematology/Oncology 09/23/23 Deepika Garcia LSW Clinical Medical Assistant 09/24/[address] [place] [address] [place] [address] Registered Dietitian Nutrition 10/22/23 Nia Snider, RN Specialty Correctional Maintenance Technician Hematology/Oncology 04/22/24 documented as of this encounter
--- NOTE | 2025-04-19 08:41 | XR_ITS ---
The [address] [address] Patient Name: MINAL CAPUTO MRN: [id number] date: 1955 Sex: F Assigned Patient Location: ER Current Patient Location: ER Accession/Order Number: [id number] Exam Date: 04/19/2025 09:00 Report Date: 04/19/2025 09:18 At the request of: JUAN CARLOS CARDENAS DO Procedure: XR hip LT min 2V LEFT HIP - 2 views: CLINICAL HISTORY: Chronic increasing left hip pain after feeling a pop this morning. H/o OA COMPARISON: 04/23/[address] 05/04/2024 AP and frog-lateral views were obtained. There is osteopenia. There is no acute fracture or dislocation. There is increasing narrowing at the superior hip joint space. There is subchondral sclerosis and cystic change. There is also hypertrophy at the periphery of the femoral head and superior acetabulum. Mild sclerosis is again noted at the SI joint. There is levoscoliotic curvature as well as postoperative and degenerative changes involving the lower imaged lumbar spine. There are no significant soft tissue abnormalities. XR/XR hip LT min 2V IMPRESSION: INCREASING DEGENERATIVE CHANGES. NO ACUTE BONY INJURY. Impression dictated by: Pat Roberts M.D. 04/19/2025 9:18 AM Dictation Location: GIVTED Electronically authenticated by: [id number] Y Date: 04/19/2025 09:18
[2025-04-19] MEDS: HYDROCODONE/ACET 5-325 MG TABLET 2 TAB PO (08:47)
--- OUTSIDE RECORDS SUMMARY | 2025-04-19 08:48 | XMS_ITS | CCD ---
Author Organization [facility] Care Team Providers Care Advertising Solicitor Name Role Phone DONTE TREVINO Referring Unavailable DONTE TREVINO Admitting Unavailable DONTE TREVINO Attending Unavailable ADY BRIZUELA Consulting Unavailable DONTE TREVINO Referring Unavailable DONTE TREVINO Referring Unavailable Rita Amanda Primary Care Provider Gilma DO, Janet Flaquita Unavailable Debbie Ramirez Unavailable Rita Amanda Primary Care Provider Gilma DO, Janet Flaquita Unavailable HENRIK Perez Attending Provider LENA Benson Referring Provider Gilma, DO Janet G Primary Care Provider Dayanna Schumacher Unavailable Gilma, DO Janet G Primary Care Provider DO Kaylene Lilly Attending Provider [phone] DEEPA Schumacher Attending Provider [phone] Rita Amanda Primary Care Provider [phone] Gilma DO, Janet Flaquita Unavailable [phone] NO FAMILY, PHYSICIAN Primary Care Provider Unava ilable Gilma, DO Janet G Primary Care Provider [phone] DO Nikko Astorga Attending Provider Karen Parrish [...] CUELLAR ., DR DONTE Patel Attending Unavailable REINECK, DR RICCO Anthony Consulting Unavailkathie SON, DONALDO Consulting Unavailable LAWRENCE LOPEZ Consulting Unavailable Janet Dillard DO Unavailable DO Janet Dillard Primary Care Provider [phone] DO Nikko Astorga Attending Provider BYRON MOORE Referring Unavailable GREGORY, ALISSAHAMID M Primary Care Unavailable GABBY COBIAN Attending Unavailable GREGORY, BHARATHID M Primary Care Unavailable MUNA ASIF Referring Unavailable Gregory Sunny HATHAWAY Primary Care Provider Yvonne Baumann RN Unavailable Mitch Neri MD Unavailable [phone] Cathy Templeton PA-C Unavailable [phone] Deepika Krueger Unavailable Unavailable Monie VELAZQUEZ, Nona Unavailable Sunny Jenkins MD Primary Care Provider Sunny Jenkins MD Primary Care Provider Yvonne Baumann RN Unavailable Cathy Templeton PA-C Unavailable [phone] Nia Snider RN Unavailable Unavailable Sunny Jenkins MD Primary Care Provider Rita Amanda Primary Care Provider BRIANNA RENNER Referring Unavailable GREGORYALISSAHAMMARIA A M Primary Care Unavailable CATHY TEMPLETON Referring Unavailable GREGORYSUNNY Primary Care Unavailable GREGORY, MUHAMID M Referring Unavailable GREGORY, MUHAMID M Primary Care Unavailable OLLIE APONTE Attending Unavailable GREGORY, MUHAMID M Referring Unavailable GREGORY, MUHAMID M Primary Care Unavailable OLLIE APONTE Referring Unavailable GREGORY, MUHAMID M Primary Care Unavailable GREGORY, MUHAMID M Attending Unavailable GREGORY, MUHAMID M Referring Unavailable GREGORY, MUHAMID M Primary Care Unavailable MADYSONAMLOU, MITCH Referring Unavailable GREGORY, MUHAMID M Primary Care Unavailable MADYSONAMLOMITCH Fishman Referring Unavailable GREGORY, MUHAMID M Primary Care Unavailable GREGORY, MUHAMID M Attending Unavailable GREGORY, MUHAMID M Referring Unavailable GREGORY, MUHAMID M Primary Care Unavailable GREGORY, MUHAMID M Referring Unavailable GREGORY, MUHAMID M Primary Care Unavailable GREGORY, MUHAMID M Referring Unavailable GREGORY, MUHAMID M Primary Care Unavailable Gregory Sunny HATHAWAY Primary Care Provider RADHA CABRERA Attending Unavailable RADHA CABRERA Admitting Unavailable GREGORY, MUHAMID M Primary Care Unavailable Gregory Sunny HATHAWAY Primary Care Provider Gregory Sunny HATHAWAY Attending Provider Mitch Neri MD Attending Provider Unavailabl e Gregory Sunny HATHAWAY Primary Care Provider Mitch Neri MD Attending Provider Unavailabl e Gregory Sunny HATHAWAY Attending Provider Gregory, Muhamid Primary Care Unavailable Mitch Neri Attending Unavailable Mitch Neri Admitting Unavailable Gregory, Muhamid Primary Care Unavailable Gregory, Muhamid Admitting Unavailable Gregory, Muhamid Attending Unavailable Gregory, Muhamid Primary Care Unavailable Josef Austin Attending Unavailable Josef Austin Admitting Unavailable Gregory Sunny HATHAWAY Primary Care Provider Janet Dillard DO Unavailable Unavailabl e Gregory Sunny HATHAWAY Primary Care Provider LEO GERARD Referring Unavailable MINAL KHANNA Referring Unavailable GREGORY, MUHAMID M Primary Care Unavailable GREGORY, MUHAMID M Primary Care Unavailable Andres MANN Admitting Unavailable Andres MANN Attending Unavailable GREGORY, MUHAMID M Attending Unavailable GREGORY, MUHAMID M Referring Unavailable GREGORY, MUHAMID M Primary Care Unavailable GREGORY, MUHAMID M Attending Unavailable GREGORY, MUHAMID M Referring Unavailable GREGORY, MUHAMID M Primary Care Unavailable RAKESH LAMB Attending Unavailable GREGORY, MUHAMID M Referring Unavailable GREGORY, MUHAMID M Primary Care Unavailable RAKESH PALMA Attending Unavailable LIA, JOHANNE Referring Unavailable GREGORY, MUHAMID M Primary Care Unavailable GREGORY, MUHAMID M Primary Care Unavailable GREGORY, MUHAMID M Primary Care Unavailable KARAMLOU, MITCH Referring Unavailable GREGORY, MUHAMID M Primary Care Unavailable GREGORY, MUHAMID M Primary Care Unavailable KARAMLOU, MITCH Referring Unavailable MINAL KHANNA Attending Unavailable GREGORY, MUHAMID M Primary Care Unavailable SELF Referring Unavailable GREGORY, MUHAMID M Primary Care Unavailable KARAMLOU, MITCH Referring Unavailable GREGORY, MUHAMID M Primary Care Unavailable KARAMLOU, MITCH Referring Unavailable Andres MANN Attending Unavailable GREGORY, MUHAMID M Primary Care Unavailable KARAMLOU, MITCH Referring Unavailable GREGORY, MUHAMID M Primary Care Unavailable SELF Referring Unavailable Andres MANN Attending Unavailable GREGORY, MUHAMID M Primary Care Unavailable RITA BARBOSA Referring Unavailable GREGORY, MUHAMID M Primary Care Unavailable KARAMLOU, MITCH Referring Unavailable GREGORY, MUHAMID M Primary Care Unavailable SANDY MCGREGOR M Attending Unavailable GREGORY, MUHAMID M Primary Care Unavailable KARAMLOU, MITCH Referring Unavailable GREGORY, MUHAMID M Primary Care Unavailable RAKESH PALMA Attending Unavailable JOHANNE FITZGERALD Referring Unavailable GREGORY, MUHAMID M Primary Care Unavailable GREGORY, MUHAMID M Primary Care Unavailable ELSIEN, MEIRAMA M Attending Unavailable LASHIN, OSSAMA M Referring Unavailable GREGORY, MUHAMID M Primary Care Unavailable KARAMLOU, MITCH Referring Unavailable GREGORY, MUHAMID M Primary Care Unavailable SELF Referring Unavailable KARAMLOU, MITCH Attending Unavailable GREGORY, MUHAMID M Primary Care Unavailable MICAH SON Attending Unavailable KARAMLOU, MITCH Referring Unavailable GREGORY, MUHAMID M Primary Care Unavailable MICAH SON Avis Referring Unavailable GREGORY, MUHAMID M Primary Care Unavailable GÓMEZ BAKER Attending Unavailable KARAMLOU, MITCH Referring Unavailable GREGORY, MUHAMID M Primary Care Unavailable KARAMLOU, MITCH Attending Unavailable GREGORY, MUHAMID M Primary Care Unavailable PEACE FITZGERALDA Attending Unavailable LIA, JOHANNE Referring Unavailable FITZGERALD, JOHANNE Admitting Unavailable FITZGERALD, JOHANNE Admitting Unavailable FITZGERALD, JOHANNE Attending Unavailable FITZGERALD, JOHANNE Referring Unavailable GREGORY, MUHAMID M Primary Care Unavailable GREGORY, MUHAMID M Primary Care Unavailable KARAMLOU, MITCH Referring Unavailable GREGORY, MUHAMID M Primary Care Unavailable KARAMLOU, MITCH Attending Unavailable KARAMLOU, MITCH Referring Unavailable GREGORY, MUHAMID M Primary Care Unavailable GREGORY, MUHAMID M Primary Care Unavailable LASHIN, MEIRAMA M Attending Unavailable LASMEIR GREYAMA M Referring Unavailable GREGORY, MUHAMID M Primary Care Unavailable KARAMLOU, MITCH Referring Unavailable KARAMLOU, MITCH Referring Unavailable GREGORY, MUHAMID M Primary Care Unavailable GREGORY, MUHAMID M Primary Care Unavailable GREGORY, MUHAMID M Primary Care Unavailable KARAMLOU, MITCH Attending Unavailable KARAMLOU, MITCH Referring Unavailable GREGORY, MUHAMID M Primary Care Unavailable GREGORY, MUHAMID M Primary Care Unavailable KARAMLOU, MITCH Attending Unavailable GREGORY, MUHAMID M Primary Care Unavailable PEACE FITZGERALDA Attending Unavailable LIA, JOHANNE Referring Unavailable KARAMLOU, MITCH Attending Unavailable GREGORY, MUHAMID M Primary Care Unavailable FITZGERALD, JOHANNE Referring Unavailable GREGORY, MUHAMID M Primary Care Unavailable FITZGERALD, JOHANNE Referring Unavailable RAKESH PALMA Attending Unavailable GREGORY, MUHAMID M Primary Care Unavailable KARAMLOU, MITCH Referring Unavailable SIERRA ATKINS Attending Unavailable GREGORY, MUHAMID M Primary Care Unavailable GREGORY, MUHAMID M Primary Care Unavailable FITZGERALD, JOHANNE Referring Unavailable GREGORY, MUHAMID M Primary Care Unavailable GREGORY, MUHAMID M Primary Care Unavailable GREGORY, MUHAMID M Primary Care Unavailable GÓMEZ BAKER Referring Unavailable GREGORY, MUHAMID M Primary Care Unavailable GÓMEZ BAKER Referring Unavailable BOOM TIM Attending Unavailable RAKESH PALMA Attending Unavailable FITZGERALD, JOHANNE Referring Unavailable GREGORY, MUHAMID M Primary Care Unavailable GREGORY, MUHAMID M Primary Care Unavailable JOHANNE FITZGERALD Referring Unavailable MITCH NERI Attending Unavailable GREGORY, MUHAMID M Primary Care Unavailable GREGORY, MUHAMID M Primary Care Unavailable SANDY MCGREGOR Referring Unavailable Unavailable Unavailable Unavailable Allergies Allergy Classification Reported Allergen(s) Allergy Type Date of Onset Reaction(s) Facility Opioid Agonists (4 sources) fentaNYL Drug Allergy 04-01-20 18 Intolerance [facility] Sulfonamides (antibiotic) (4 sources) Sulfonamides (Antibiotic) Drug Allergy 03-08-20 07 Unknown [facility] (20 sources) fentaNYL; Translations: [FENTANYL] Drug Allergy 04-01-20 Other: See Comments, Intolerance [facility] (1 source) Penicillins; Translations: [PENICILLINS] Propensity to adverse reactions to drug (disorder) 03-08-[address] [facility] (20 sources) Sulfonamides (Antibiotic); Translations: [SULFA (SULFONAMIDE ANTIBIOTICS)] Propensity to adverse reactions to drug (disorder) 03-08-20 07 Unknown, Rash [facility] (1 source) OTHER; Translations: [OTHER] Propensity to adverse reactions (disorder) 05-06-[address] [facility] (20 sources) ADHESIVE BANDAGES [Other] Propensity to adverse reactions 05-06-20 07 [facility] Work Phone: (7 sources) Sulfacetamide Drug Allergy 01-06-20 [facility] (1 source) Adhesive bandage Drug allergy (disorder) 12-04-19 20 [facility] (1 source) Sulfonamides (Antibiotic) Drug allergy (disorder) 12-04-19 20 [facility] (20 sources) Adhesive agent; Translations: [ADHESIVE] Allergy to substance 02-29-20 Other (See Comments) [facility] (20 sources) Adhesive Tape-Silicones; Translations: [ADHESIVE TAPE-SILICONES] Drug Intolerance 07-29-20 [facility] Work Phone: (1 source) Sulfacetamide Drug Allergy 01-06-20 [facility] Repository Medications Current Medications Medication Drug Class(es) Dates Sig (Normalized) Sig (Original) [id number] 200 actuat albuterol 0.09 mg/actuat metered dose [...] End: 06-10-2024 take 1 tablet by mouth twice daily Apixaban (Eliquis) 5 mg tablet Active 5 MG PO Twice daily January 06, 2024 12:00am Start: 11-05-2023 End: 12-13-2023 take 2 tablets by mouth twice daily, then take 1 tablet by mouth twice daily apixaban (ELIQUIS DVT-PE TREAT 30D START) 5 mg (74 tabs) tablets,dose pack tablet Indications: 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 (CMS-HCC) Take 2 tablets by mouth twice daily for 7 days, then take 1 tablet twice daily 74 tablet 11/05/2023 12/13/2023 Discontinued Start: 11-05-2023 take 2 tablets by [facility] twice daily, then take 1 tablet by mouth twice daily apixaban (ELIQUIS DVT-PE TREAT 30D START) 5 mg (74 tabs) tablets,dose pack tablet Indications: 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 two times a day. aspirin 81 mg delayed release oral tablet (1 source) Platelet Aggregation Inhibitor, Nonsteroidal Anti-inflammatory Drug Start: 03-31-20 End: 12-09-19 22 take 1 tablet by mouth twice daily [...] sources) HMG-CoA Reductase Inhibitor Start: 01-06-20 take 4 tablets by mouth at bedtime Atorvastatin 10 mg tablet Active 40 MG PO Bedtime January 06, 2024 10:24am Start: 01-06-2024 take 40 mg by mouth at bedtime Atorvastatin Active 40 MG PO Bedtime January 06, 2024 10:24am Start: 05-14-2023 End: 07-26-2024 take 1 tablet by mouth in the morning atorvastatin (LIPITOR) 40 mg tablet Indications: ASCVD (arteriosclerotic cardiovascular disease) TAKE 1 TABLET (40 MG TOTAL) BY MOUTH IN THE MORNING 90 tablet 2 07/26/2024 Active Start: 02-28-2023 End: 01-06-2024 take 1 tablet by mouth at bedtime Atorvastatin 10 mg Tablet Discontinued 10 MG PO Bedtime February 28, [...] Nov, Active cefdinir 300 mg oral capsule (8 sources) Cephalosporin Antibacterial Start: 04-05-2025 End: 04-19-2025 cefdinir (OMNICEF) 300 mg capsule Take 300 mg by mouth. 04/12/2025 04/19/2025 Active Start: 10-09-2023 End: 10-16-2023 take 1 capsule [...] 2023 12:00am take 1 tablet by mouth once ankur y cholecalciferol (VITAMIN D-3) 5,000 unit tab Take 5,000 Units by mouth once daily. Active take 1 tablet by mouth in the mo rning cholecalciferol, vitamin D3, 5,000 units tablet Take 1 tablet (5,000 Units total) by mouth in the morning. Active dexamethasone 4 mg oral tablet (11 [...] 1.5 mg/ml oral solution (2 sources) Uncompetitive F-uhxqjx-W-aspartate Receptor Antagonist, Sigma-1 Agonist Start: 06-17-2022 [place] DM 7.5-7.5 MG/5ML 10 ml Orally every 6-8 hours as needed for 8 days May, Active Start: 04-25-2019 [place] DM 7.5- 7.5 MG/5ML 10 ml Orally every 6-8 hours as needed for 8 days Mar, Active esomeprazole 20 mg delayed release oral capsule (20 sources) Proton Pump Inhibitor Start: 02-28-2023 End: 01-28-2024 take 1 capsule by mouth at bedtime [...] (20 sources) Azole Antifungal Start: 01-06-2024 End: 04-09-2025 fluconazole (DIFLUCAN) 150 mg tablet Indications: Vaginal candidiasis Take 1 tablet (150 mg total) by mouth every 3 (three) days for 2 doses. Start at end of antibiotic 2 tablet 04/05/2025 04/09/2025 Active Start: 01-06-2024 End: 04-05-2025 take 1 tablet by mouth once daily Fluconazole 150 mg tablet Active 150 MG PO Daily January 06, 2024 12:00am Start: 01-06-2024 take 1 tablet by eamon th once daily Fluconazole 100 mg tablet Active 100 MG PO Daily 7 January 06, 2024 12:00am Start: 11-27-2023 End: 12-25-2023 take 1 tablet by mouth in the morning fluconazole (DIFLUCAN) 100 mg tablet Take 1 tablet (100 mg total) by mouth in the morning for 14 days. 14 tablet 12/11/2023 12/25/2023 Active Start: 11-27-2023 End: 01-14-2024 fluconazole (DIFLUCAN) 100 m g tablet Take 150 mg by mouth as directed. Every 3 days 0 11/27/2023 01/14/2024 Discontinued Comment on above: TAKE 1 TABLET (100 M G TOTAL) BY MOUTH IN THE MORNING FOR 14 DAYS. fluticasone propionate 0.05 mg/actuat metered dose nasal spray (19 sources) Corticosteroid Start: 08-12-20 End: 01-28-20 24 take 1 spray(s) nasal route in the morning fluticasone propionate (FLONASE) 50 mcg/actuation nasal spray SPRAY 1 SPRAY INTO EACH NOSTRIL IN THE MORNING 24 mL 1 10/09/2023 Active folic acid 1 mg oral tablet (20 sources) Start: 06-05-20 End: 03-03-20 24 take 1 tablet by mouth once daily in the morning folic acid (FOLVITE) 1 mg tablet TAKE 1 TABLET BY MOUTH IN THE MORNING. EXCEPT THE DAYS OF TAKING METHOTREXATE. 90 tablet 1 12/31/2023 Active Comment on above: Take 1 mg by mouth o nce daily. furosemide 20 mg oral tablet (20 sources) Loop Diuretic Start: 12-13-19 End: 01-21-20 take 1 tablet by mouth twice daily before mealtime furosemide (LASIX) 20 mg tablet Indications: Edema, unspecified type TAKE 1 TABLET BY MOUTH 2 TIMES A DAY BEFORE MEALS. 180 tablet 1 01/20/2025 Active Start: 11-14-2023 End: 11-28-2023 take 1 tablet by mouth twice daily before mealtime furosemide (LASIX) 40 mg tablet Indications: Diuresis Take 1 tablet (40 mg total) by mouth 2 (two) times a day before meals for 14 days. 28 tablet 0 11/14/2023 11/28/2023 Active Start: 11-13-2023 End: 12-13-2023 take 2 tablets by mouth once daily furosemide (LASIX) 20 mg tablet Take 2 tablets (40 mg total) by mouth daily. 90 tablet 3 11/13/2023 12/13/2023 Discontinued (Reorder) Start: 03-13-2018 End: 11-11-2023 take 1 tablet [...] mg by mouth once daily. lactobacillus acidophilus [id number] unt oral tablet (20 sources) Lactobacillus ac idophilus 500 million cell tablet Take by mouth in the morning. Active Lactobacillus ac idophilus 500 million cell tablet [...] oral tablet (20 sources) Aromatase Inhibitor Start: 10-20-2024 take 1 tablet by mouth once daily letrozole (FEMARA) 2.5 mg tablet TAKE 1 TABLET BY MOUTH EVERY DAY 90 tablet 1 10/20/2024 Active Start: 09-28-2024 take 1 tablet by eamon th once daily letrozole (FEMARA) 2.5 mg tablet Take 1 tablet by mouth once daily. 30 tablet 09/28/2024 Active Start: 06-28-2023 End: 06-22-2024 take 1 tablet by mouth once daily letrozole (FEMARA) 2.5 mg chemo tablet Take 1 tablet by mouth daily 90 tablet 3 06/28/2023 06/22/2024 Active Comment on above: Take 1 tablet by eamon th once daily. losartan potassium 50 mg oral tablet (20 sources) Angiotensin 2 Receptor Rajan Start: End: take 1 tablet by mouth once daily losartan (COZAAR) 50 mg tablet Take 50 mg by mouth once daily. 08/24/2021 Active Comment on above: Take 50 mg by mouth once daily. methotrexate 2.5 mg/ml oral solution (20 sources) Folate Analog Metabolic Inhibitor Start: 4 take 2.5 mg by mouth every week Methotrexate 2.5 mg/mL solution Active 2.5 MG PO every week January 06, 2024 12:00am Start: 01-06-2024 take 2.5 mg by mouth every wee k Methotrexate Active 2.5 MG PO every week January 06, 2024 12:00am Start: 10-08-2023 methotrexate 2 .5 mg chemo tablet TAKE 6 TABLETS ONCE A WEEK. 6 tablet 10/08/2023 Active Start: 07-22-2023 End: 03-03-2024 methotrexate 2.5 mg tablet T xiao 15 mg by mouth every Saturday. 07/22/2023 03/03/2024 Discontinued (Discontinued by Patient) Start: 07-22-2023 take 6 tablets by mo mth every week methotrexate 2.5 mg chemo tablet [...] Active Comment on above: As Instructed per ramesh hahn metoprolol tartrate 50 mg oral tablet (20 sources) beta-Adrenergic Rajan Start: 3 End: 4 take 1 tablet by mouth in the morning, then take 1 tablet by mouth at bedtime metoprolol tartrate (LOPRESSOR) 50 mg tablet Indications: Hypertension, unspecified type Take 1 tablet (50 mg total) by mouth in the morning and 1 tablet (50 mg total) before bedtime. 180 tablet 2 06/04/2024 Active Start: 06-01-2008 METOPROLOL 100 MG TAB Take 50 mg by mouth once daily. 0 0 06/01/2008 Active Start: 06-01-2008 METOPROLOL [...] once daily. Multivitamin preparation (2 sources) Start: 02-28-2023 take 1 tablet by mouth once daily Multivitamin Active 1 TAB PO Daily February 28, 2023 12:00am Multivitamin Tablet (2 sources) Start: 02-28-2023 take 1 tablet by mouth once daily Multivitamin Tablet Active 1 TAB PO Daily February 28, 2023 12:00am Start: 02-28-2023 take 1 tablet by eamon th once daily Multivitamin Tablet Active 1 TAB PO Daily February 27, 2023 11:00pm naproxen 500 mg oral tablet (20 sources) Nonsteroidal Anti-inflammatory Drug Start: 03-19-2022 End: 10-14-2024 take 1 tablet by mouth at bedtime naproxen (NAPROSYN) 500 mg tablet Indications: Hip pain, unspecified laterality TAKE 1 TABLET (500 MG TOTAL) BY MOUTH IN THE MORNING AND BEFORE BEDTIME 60 tablet 2 10/14/2024 Active NAPROXEN ORAL Ta ke by mouth two times a day. Active NAPROXEN ORAL Ta ke by mouth two times a day. 0 Active Comment on above: Take 1 tablet by eamon th twice daily as needed. Take with food. Nebulizer Machine & Supplies (1 source) Start: 04-25-2019 Nebulizer Machine & Supplies As directed Mar, Active nystatin [id number] unt/ml topical cream (8 sources) Polyene Antifungal Start: 04-05-2025 nystatin (MYCOSTATIN) cream Apply 1 application to affected area. 04/05/2025 Active Start: 04-05-2025 nystatin (MYCO STATIN) cream Indications: Yeast dermatitis Apply 1 Application topically in the morning and 1 Application before bedtime. 30 g 1 04/05/2025 Active Start: 01-06-2024 Nystatin 100,0 00 unit/gram ointment Active 1 APPLIC TOPICAL Three times daily 30 January 06, 2024 12:00am nystatin 100 unt/mg / triamcinolone acetonide 0.001 mg/mg topical ointment (20 sources) Polyene Antifungal, Corticosteroid Start: 05-14-2023 nystatin-triamcinolone (MYCOLOG II) ointment Indications: Jessica infection Apply 1 Application topically in the morning and 1 Application before bedtime. 30 g 05/14/2023 Active pantoprazole 20 mg delayed release oral tablet (1 source) Proton Pump Inhibitor Start: 03-31-2018 End: 12-08-2021 take 1 tablet by mouth once daily [...] 10 mL injection (DEFINITY) (16 sources) Start: 12-08-2021 End: 03-09-2023 perflutren lipid microspheres 1.3 mL in NaCl (PF) 0.9% 10 mL injection (DEFINITY) polyethylene glycol 3350 [id number] mg / potassium chloride 2970 mg / sodium bicarbonate 6740 mg / sodium chloride 5860 mg / sodium sulfate 94528 mg powder for oral solution (1 source) Osmotic Laxative Start: 09-19-2022 End: 09-19-2022 peg 3350-Electrolytes (GOLYTELY) 236-22.74-6.74 -5.86 gram suspension [...] extended release oral tablet (20 sources) Start: 11-14-2023 End: 10-20-2024 take 1 tablet by mouth in the morning KLOR-CON M10 10 mEq CR tablet Indications: Edema, unspecified type TAKE 1 TABLET (10 MEQ TOTAL) BY MOUTH IN THE MORNING AND 1 TABLET (10 MEQ TOTAL) BEFORE BEDTIME. 180 tablet 1 10/20/2024 Active Start: 02-28-2023 take 1 tablet by mouth once da [place] Potassium Chloride 10 mEq Tablet Extended Release Active 10 MEQ PO Daily February 28, 2023 12:00am take 1 tablet by eamon twice daily potassium chloride (K-TAB) 10 mEq tablet Take 10 mEq by mouth twice daily. 0 Active take 1 capsule by [facility] every twenty-four hours Potassium Chloride ER 10 MEQ 1 tablet with food Orally Once a day for 90 Active Comment on above: Take 10 mEq by mouth twice daily. Take 10 mEq by mouth once daily. predniSONE 5 mg oral tablet (20 sources) [...] Discontinued (Course of therapy completed) Start: 06-05-2023 End: 01-28-2024 predniSONE (DELTASONE) 10 mg tablet 30 mg daily for 5 days, 20 mg daily for 5 days, 15 mg daily for 5 days, 10 mg daily for 5 days, 5 mg daily for 5 days 40 tablet 06/05/2023 01/28/2024 Discontinued Start: 12-03-2022 take [address] [facility] every twelve hours prednisone 20 MG 1 tablet Orally BID for 5 days Nov, Active Start: 09-26-2018 End: 03-19-2022 predniSONE (DELTASONE) 10 mg tablet Comment on above: Take 3 tablets by [facility] once daily for 4 days, THEN 2 tablets once daily for 4 days, THEN 1 tablet once daily for 4 days, THEN 0.5 tablets once daily for 4 days. ribociclib (20 sources) Start: 04-10-2025 ribociclib (KISQALI) 400 mg/day (200 mg x 2) tab Indications: Invasive lobular carcinoma of breast in female (HCC) Take 2 tablets (400 mg) by mouth once daily for 21 days on, then 7 days off to complete a 28-day treatment cycle. Discard after 60 days from fill date. 42 tablet 3 04/14/2025 11:39 AM EDT 04/10/2025 Active Start: 04-10-2025 ribociclib (KI SQALI) 400 mg/day (200 mg x 2) tab Indications: Invasive lobular carcinoma of breast in female (HCC) Take 2 tablets (400 mg) by mouth once daily for 21 days on, then 7 days off to complete a 28-day treatment cycle. Discard after 60 days from fill date. 42 tablet 3 04/10/2025 Active Start: 12-21-2024 End: 04-09-2025 ribociclib (KISQALI) 400 mg/ day (200 mg x 2) tab Indications: Invasive lobular carcinoma of breast in female (HCC) Take 2 tablets (400 mg) by mouth once daily for 21 days on, then 7 days off to complete a 28-day treatment cycle. Discard after 60 days from fill date. 42 tablet 3 03/18/2025 11:18 AM EDT 12/21/2024 04/09/2025 Discontinued Start: 12-21-2024 ribociclib (KI SQALI) 400 mg/day (200 mg x 2) tab Indications: Invasive lobular carcinoma of breast in female (HCC) Take 2 tablets (400 mg) by mouth once daily for 21 days on, then 7 days off to complete a 28-day treatment cycle. Discard after 60 days from fill date. 42 tablet 3 03/18/2025 11:18 AM EDT 12/21/2024 Active Start: 12-21-2024 ribociclib (KI SQALI) 400 mg/day (200 mg x 2) tab Indications: Invasive lobular carcinoma of breast in female (HCC) Take 2 tablets (400 mg) by mouth once daily for 21 days. Then take a 7-day rest period to complete a 28-day treatment cycle. Discard after 60 days from fill date. 42 tablet 3 02/18/2025 2:19 PM EDT 12/21/2024 Active Start: 12-21-2024 ribociclib (KI SQALI) 400 mg/day (200 mg x 2) tab Indications: Invasive lobular carcinoma of breast in female (HCC) Take 2 tablets (400 mg) by mouth once daily for 21 days. Then take a 7-day rest period to complete a 28-day treatment cycle. Discard after 60 days from fill date. 42 tablet 3 01/21/2025 1:54 PM EDT 12/21/2024 Active Start: 12-21-2024 ribociclib (KI SQALI) 400 mg/day (200 mg x 2) tab Indications: Invasive lobular carcinoma of breast in female (HCC) Take 2 tablets (400 mg) by mouth once daily for 21 days. Then take a 7-day rest period to complete a 28-day treatment cycle. Discard after 60 days from fill date. 42 tablet 3 12/23/2024 10:26 AM EDT 12/21/2024 Active Start: 12-21-2024 ribociclib (KI SQALI) 400 mg/day (200 mg x 2) tab Indications: Invasive lobular carcinoma of breast in female (HCC) Take 2 tablets (400 mg) by mouth once daily for 21 days. Then take a 7-day rest period to complete a 28-day treatment cycle. Discard after 60 days from fill date. 42 tablet 3 12/21/2024 Active Start: 07-16-2024 Ribociclib 400 mg/day (200 mg X 2) tablets (KISQALI) Indications: Invasive lobular carcinoma of breast in female (HCC) Take 2 tablets (400 mg) by mouth once daily for 21 days. Then take a 7-day rest period to complete a 28-day treatment cycle. Discard after 60 days from fill date. 42 tablet 3 10/29/2024 11:34 AM EST 07/16/2024 Active Start: 07-16-2024 Ribociclib 400 mg/day (200 mg X 2) tablets (KISQALI) Indications: Invasive lobular carcinoma of breast in female (HCC) Take 2 tablets (400 mg) by mouth once daily for 21 days. Then take a 7-day rest period to complete a 28-day treatment cycle. Discard after 60 days from fill date. 42 tablet 3 10/01/2024 10:20 AM EST 07/16/2024 Active Start: 07-16-2024 Ribociclib 400 mg/day (200 mg X 2) tablets (KISQALI) Indications: Invasive lobular carcinoma of breast in female (HCC) Take 2 tablets (400 mg) by mouth once daily for 21 days. Then take a 7-day rest period to complete a 28-day treatment cycle. Discard after 60 days from fill date. 42 tablet 3 07/16/2024 Active Start: 07-16-2024 Ribociclib 400 mg/day (200 mg X 2) tablets (KISQALI) Indications: Invasive lobular carcinoma of breast in female (HCC) Take 2 tablets (400 mg) by mouth once daily for 21 days. Then take a 7-day rest period to complete a 28-day treatment cycle. Discard after 60 days from fill date. 21 tablet 3 07/16/2024 Active spironolactone 25 mg oral tablet (20 sources) Aldosterone Antagonist Start: 11-08-2023 End: 09-13-2024 take 1 tablet by mouth once spironolactone (ALDACTONE) 25 mg tablet Take 1 tablet by mouth every afternoon. 11/08/2023 Active Comment on above: Take 1 tablet by eamon th every afternoon. Vitamin D3 125 MCG (5000 UT) (3 sources) take 1 tablet by mouth once daily Vitamin D3 125 MCG (5000 UT) 1 tablet Orally Once a day Active Vitamin D3 66590 UNIT (1 source) Vitamin D3 55284 UNIT 1 tablet Orally Active Completed/Discontinued Medications [...] day. 56 tablet 5 04/21/2024 06/03/2024 Discontinued acetaminophen 325 mg oral tablet (20 sources) Start: 02-23-2025 End: 02-24-2025 take 1 tablet by mouth every four hours as needed 650 mg, ORAL, EVERY 4 HOURS NEEDED, Starting on Sat02/23/25 at 1029, Until Sat02/24/25 at 0302, breakthrough pain Start: 07-16-2023 End: 09-01-2023 take 2 tablets [...] hrs (includes Tylenol/Acetaminophen in other medications e.g. [place]). betamethasone 0.5 mg/ml / clotrimazole 10 mg/ml topical cream (20 sources) Azole Antifungal, Corticosteroid Start: End: clotrimazole-betameth asone (LOTRISONE) cream Apply 1 Application topically in the morning and 1 Application before bedtime. Apply to affected area 2 times daily. 15 g 1 12/21/2023 01/28/2024 Discontinued Start: 11-27-2023 End: 01-14-2024 clotrimazole-betamethasone ( LOTRISONE) cream two times a day. 0 11/27/2023 01/14/2024 Discontinued (Discontinued by Patient) Start: 11-27-2023 End: 12-11-2023 clotrimazole-betamethasone ( LOTRISONE) cream Apply 1 Application topically in the morning and 1 Application before bedtime. Do all this for 14 days. Apply to affected area 2 times daily. 15 g 1 11/27/2023 12/11/2023 Comment on above: two times a day. cefprozil 500 mg oral tablet (11 sources) Cephalosporin Antibacterial Start: 4 End: take 1 tablet by mouth every twelve hours cefprozil (CEFZIL) 500 mg tablet Take 1 tablet by mouth every 12 hours. 0 11/19/2023 12/03/2023 Discontinued (Discontinued by Patient) Comment on above: Take 1 tablet by eamon th every 12 hours. cefuroxime 500 mg oral tablet (2 sources) Cephalosporin Antibacterial Start: 2 take 1 tablet by mouth every twelve hours Cefuroxime Axetil 500 MG 1 tablet Orally every 12 hrs for 7 days Jul, Not-Taking cephalexin 500 mg oral capsule (13 sources) Cephalosporin Antibacterial Start: 5 End: take 1 capsule by mouth three times daily cephALEXin (KEFLEX) 500 mg capsule Take 1 capsule by mouth three times a day for 3 days. 9 capsule 02/15/2025 02/19/2025 Discontinued (Course of therapy completed) Start: 01-06-2024 End: 01-14-2024 take 1 capsule by mouth three times daily Cephalexin 500 mg capsule Active 500 MG PO Three times daily 30 January 06, 2024 12:00am cetirizine hydrochloride 10 mg oral tablet (20 sources) Histamine-1 Receptor Antagonist Start: 10-09-2023 End: 01-28-2024 take 1 tablet by mouth in the morning cetirizine (ZyrTEC) 10 mg tablet Take 1 tablet (10 mg total) by mouth in the morning. 30 tablet 1 10/09/2023 01/28/2024 Discontinued Comment on above: TAKE 1 TABLET (10 MG TOTAL) BY MOUTH IN THE MORNING ciprofloxacin 500 mg oral tablet (20 sources) Quinolone Antimicrobial Start: 01-08-2024 End: 05-19-2024 take 1 tablet by mouth every twelve [...] by eamon th two times a day for 7 days. dexAMETHasone 10 mg in NaCl 0.9% 50 mL (DECADRON) (1 source) Start: 12-31-19 End: 12-31-19 dexAMETHasone 10 mg in NaCl 0.9% 50 mL (DECADRON) diphenhydrAMINE (1 source) Histamine-1 Receptor Antagonist Start: 12-31-19 End: 12-31-19 diphenhydrAMINE 25 mg injection (BENADRYL) doxycycline hyclate 100 mg oral tablet (13 sources) Tetracycline-class Drug Start: 11-19-19 End: 12-03-19 take 1 tablet by mouth every twelve hours doxycycline (VIBRA-TABS) 100 mg tablet Take 1 tablet by mouth every 12 hours. 0 11/19/2023 12/03/2023 Discontinued (Discontinued by Patient) Start: 12-07-2022 take 1 tablet by eamon th every twelve hours Doxycycline Hyclate 100 MG 1 tablet Orally Twice a day for 10 day(s) Nov, Active Start: 04-25-2019 take 1 capsule by mo [facility] every twelve hours Doxycycline Monohydrate 100 MG 1 capsule Orally every 12 hrs for 10 days Mar, Active End: 01-28-2024 take 1 capsule by mouth in the morning, then take 1 capsule by mouth at bedtime doxycycline (VIBRAMYCIN) 100 mg capsule Take 1 capsule (100 mg total) by mouth in the morning and 1 capsule (100 mg total) before bedtime. 01/28/2024 Discontinued Comment on above: Take 1 tablet by eamon th every 12 hours. ergocalciferol, vitamin D2, (VITAMIN [...] 12-31-2023 famotidine 20 mg injection ( PEPCID) ibrexafungerp 150 mg tablet (3 sources) Start: 12-10-2023 End: 12-11-2023 take 2 tablets by mouth in the morning ibrexafungerp 150 mg tablet Indications: Jessica infection Take 300 mg by mouth in the morning and 300 mg before bedtime. Do all this for 1 day. 4 tablet 12/10/2023 12/11/2023 Start: 12-10-2023 End: 12-11-2023 take 2 tablets by mouth in the morning ibrexafungerp 150 mg tablet Indications: Jessica infection Take 300 mg by mouth in the morning and 300 mg before bedtime. Do all this for 1 day. 4 tablet 12/10/2023 12/11/2023 Active iv contrast (will be provide d with [...] 10 ml lidocaine hydrochloride 10 mg/ml injection (5 sources) Antiarrhythmic, Amide Local Anesthetic Start: 02-23-2025 End: 02-24-2025 1-2 mg (0.1-0.2 mL), INTRADERMAL, NEEDED, 1 dose, Starting on Sat02/23/25 at 1029, Until Sat02/24/25 at 0302, See admin instructions, May use prior to starting IV, Preprocedure Start: 02-15-2025 End: 02-15-2025 lidocaine (PF) 10 mg/mL (1 % ) 4 mL injection (XYLOCAINE) Start: 02-15-2025 End: 02-15-2025 4 mL, Injection - FOR ORTHO USE ONLY, ONCE, 1 dose, Starting on Sat02/15/25 at 1417, Until Sat02/15/25 at 1417 Start: 09-06-2022 End: 09-06-2022 lidocaine (PF) 10 mg/mL (1 % ) 4 mL injection (XYLOCAINE) Start: 12-19-2021 End: [...] oral tablet (2 sources) Opioid Agonist Start: 07-30-20 End: 08-06-20 take 1 tablet by mouth every six [...] 0.9% 304.8667 mL (TAXOL) (1 source) Start: 12-31-19 End: 12-31-19 PACLitaxel 179.2 mg in NaCl 0.9% 304.8667 mL (TAXOL) PENICILLIN V POTASSIUM ORAL (10 sources) End: 12-31-19 PENICILLIN V POTASSIUM ORAL Take by mouth. 12/30/2024 Discontinued PENICILLIN V POT ASSIUM ORAL Take by mouth. Active phenazopyridine hydrochloride 200 mg oral tablet (2 sources) Start: 08-12-2022 take 1 tablet by mouth every eight hours Pyridium 200 MG 1 tablet after meals Orally Three times a day for 2 day(s) Jul, Not-Taking prednisoLONE acetate 10 mg/ml ophthalmic suspension (20 sources) Corticosteroid Start: 06-02-2024 End: 10-02-2024 prednisoLONE acetate (PRED FORTE) 1 % ophthalmic suspension Use 1 Drop in the right eye as directed. Starting TOMORROW place one drop in operative eye four times a day. 06/17/2024 10/02/2024 Discontinued prochlorperazine 10 mg oral tablet (20 sources) Phenothiazine Start: 09-23-2023 End: 12-25-2023 take 1 tablet by mouth every six hours as needed prochlorperazine (COMPAZINE) 10 mg tablet Take 1 tablet by mouth every 6 hours as needed. 100 tablet 2 09/23/2023 12/25/2023 Discontinued (Course of therapy completed) Comment on above: Take 1 tablet by eamon th every 6 hours as needed. 1000 ml sodium chloride 9 mg/ml injection (17 sources) Start: 02-23-2025 End: 02-24-2025 take 30 mL intravenously every hour 30 mL/hr, INTRAVENOUS, CONTINUOUS, Starting on Sat02/23/25 at 1030, Until Sat02/24/25 at 0302, Preprocedure Start: 12-08-2021 End: 03-09-2023 sodium chloride 0.9 % (flush ) 10 mL (BD POSIFLUSH) 1 ml triamcinolone acetonide 40 mg/ml injection (20 sources) Corticosteroid Start: 02-15-2025 End: 02-15-2025 triamcinolone acetonide 40 mg injection (KeNALog 40) Start: 02-15-2025 End: 02-15-2025 40 mg, Injection - FOR ORTHO USE ONLY, ONCE, 1 dose, Starting on Sat02/15/25 at 1417, Until Sat02/15/25 at 1417 Start: 05-14-2023 End: 01-28-2024 triamcinolone (KENALOG) 0.5 % cream Indications: Contact dermatitis, unspecified contact dermatitis type, unspecified trigger Apply 1 Application topically in the morning and 1 Application before bedtime. 30 g 05/14/2023 01/28/2024 Discontinued Start: 09-06-2022 End: 09-06-2022 triamcinolone acetonide 40 m g injection (KeNALog 40) Start: 12-19-2021 End: 12-19-2021 triamcinolone acetonide 40 m g injection (KeNALog 40) Start: 12-31-2017 Kenalog -40 mg December, 10 mg Start: 03-20-2015 KENALOG - 10 m g Feb, 40 mg zoledronic acid 3.5 mg in Na Cl 0.9% 100 mL (ZOMETA) (2 sources) Start: 12-30-2024 End: 12-30-2024 3.5 mg, INTRAVENOUS, Adminis ter over 15 Minutes, ONCE, 1 dose, On Sat12/30/24 at 1030, Hazardous Potential Reproductive Risk Drug: Use appropriate PPE. Refrigerate. Exp: (24 HR) Start: 04-21-2024 End: 04-21-2024 3.5 mg, INTRAVENOUS, Adminis ter over 15 Minutes, ONCE, 1 dose, On Sat04/21/24 at 1130, Hazardous Potential Reproductive Risk Drug: Use appropriate PPE. Refrigerate. Problems Active Problems Problem Classification Problem Date Documented Date Episodic/Chronic Abdominal hernia (9 sources) Hiatal hernia; Translations: [Diaphragmatic hernia without obstruction or gangrene] Onset: 12-13-2022 Episodic Asthma (1 source) Unspecified asthma, uncomplicated; Translations: [...] kidney disease] Onset: 12-24-2023 12-24-2023 Chronic Chronic kidney disease (3 sources) Chronic kidney disease; Translations: [Stage 3 chronic kidney disease, unspecified whether stage 3a or 3b CKD (HCC)] Onset: 12-24-2023 Chronic obstructive pulmonary disease and bronchiectasis (20 sources) Chronic bronchitis; Translations: [Unspecified chronic bronchitis] Onset: 06-01-2020 Resolved: 04-02-2023 03-15-2022 Chronic Chronic obstructive pulmonary disease and bronchiectasis (2 sources) Bronchitis, not specified as acute or chronic Episodic Congestive heart failure; nonhypertensive (1 source) Diastolic dysfunction; Translations: [Acute on chronic diastolic (congestive) heart failure] 11-17-2023 Chronic Coronary atherosclerosis and other heart disease (2 sources) Arteriosclerotic vascular disease; Translations: [Atherosclerotic heart disease of [place] coronary artery without angina pectoris] 11-01-2023 Chronic [...] valve disorders] Onset: 05-08-2007 05-08-2007 Chronic Mycoses (11 sources) Candidiasis; Translations: [Candidiasis, unspecified] Onset: 04-05-2025 12-03-2023 Episodic Osteoarthritis (20 sources) Bilateral primary osteoarthritis of knee; Translations: [Primary gonarthrosis, bilateral] Onset: 12-23-2017 12-23-2017 Chronic Other aftercare (1 source) Other family consumer science teacher (current) drug therapy; Translations: [OTH CARE HOME CURRENT DRUG THERAPY] Onset: 12-13-2022 Episodic Other aftercare (1 source) Surgical follow-up; Translations: [Encounter for follow-up examination after completed treatment for conditions other than malignant neoplasm] 06-03-2024 Episodic Other bone disease and musculoskeletal deformities (20 sources) Idiopathic kyphoscoliosis; Translations: [Other idiopathic scoliosis, site unspecified] Onset: 12-16-2007 12-16-2007 Chronic Other bone disease and musculoskeletal deformities (1 source) Idiopathic scoliosis; Translations: [Other idiopathic scoliosis, site unspecified] 04-16-2025 Chronic Other bone disease and musculoskeletal deformities (1 source) Other idiopathic scoliosis, site unspecified; Translations: [Other idiopathic scoliosis, unspecified spinal region] Onset: 04-16-2025 Chronic Other bone disease and musculoskeletal deformities (4 sources) Osteopenia; Translations: [Other specified disorders of bone density and structure, multiple sites] Onset: 04-13-2025 04-13-2025 Episodic Other bone disease and musculoskeletal deformities (1 source) Other specified disorders of bone density and structure, multiple sites; Translations: [Osteopenia of multiple sites] Onset: 04-13-2025 Episodic Other circulatory disease (1 source) Personal history [...] classified; Translations: [Lymphedema] Onset: 09-20-2023 Chronic Other diseases of veins and lymphatics (1 source) Lymphedema; Translations: [Lymphedema, not elsewhere classified] 10-02-2024 Chronic Other liver diseases (1 source) Enzyme level - finding; Translations: [Elevated transaminase level] 01-21-2024 Episodic Other lower respiratory disease (1 source) Other disorders of lung; Translations: [OTHER DISORDERS OF LUNG] Onset: 12-13-2022 Episodic Other lower respiratory disease (3 sources) Difficulty breathing; Translations: [Other abnormalities of breathing] 02-17-2025 Episodic Other lower respiratory disease (4 sources) Dyspnea; Translations: [Dyspnea, unspecified] 04-16-2025 Episodic Other lower respiratory disease (2 sources) Dyspnea, unspecified; Translations: [Dyspnea and respiratory abnormalities] Onset: 04-16-2025 Episodic Other lower respiratory disease (2 sources) Other abnormalities of breathing; Translations: [Dyspnea and respiratory abnormalities] Onset: 02-15-2025 Episodic Other non-traumatic joint disorders (1 source) Pain in left hip; Translations: [Pain in left hip] Onset: 02-15-2025 Episodic Other nutritional; endocrine; and metabolic disorders [...] nutritional; endocrine; and metabolic disorders (2 sources) Severe obesity; Translations: [Class 3 severe obesity due to excess calories with body mass index (BMI) of 50.0 to 59.9 in adult, unspecified whether serious comorbidity present (HCC)] 02-17-2025 Chronic Other nutritional; endocrine; and metabolic disorders (1 source) Body mass index (BMI) 45.0-49.9, adult; Translations: [Class 3 severe obesity with body mass index (BMI) of 45.0 to 49.9 in adult, unspecified obesity type, unspecified whether serious comorbidity present (HCC)] Onset: 03-15-2022 Chronic Other nutritional; endocrine; and metabolic disorders (1 source) Morbid (severe) obesity due to excess calories; Translations: [Morbid obesity (HCC)] Onset: 07-26-2023 Chronic Other screening for suspected conditions (not mental disorders or infectious disease) (20 sources) Patient encounter status; Translations: [Encounter for screening for malignant neoplasm of colon] Onset: 09-12-2020 Episodic Other skin disorders (1 source) Skin finding; Translations: [Excessive and redundant skin and subcutaneous tissue] 02-15-2025 Episodic Other skin disorders (4 sources) Epidermoid cyst; Translations: [Epidermal cyst] 02-15-2025 Episodic Other skin disorders (2 sources) Epidermal cyst; Translations: [Inclusion cyst] Onset: 02-23-2025 Episodic Other skin disorders (1 source) Scar conditions and fibrosis of skin; Translations: [Painful scar] Onset: 02-15-2025 Episodic Other skin disorders (1 source) Excessive and redundant skin and subcutaneous tissue; Translations: [Excess skin] Onset: 02-15-2025 Episodic Other upper respiratory infections (7 sources) Acute upper respiratory infection, unspecified; Translations: [Recurrent acute sinusitis] Onset: 04-05-2025 Episodic Pneumonia (except that caused by tuberculosis or sexually transmitted disease) (3 sources) Pneumonia, unspecified organism; Translations: [Human metapneumovirus pneumonia] Onset: 12-10-2022 Episodic Residual codes; unclassified (1 source) Personal history of other specified conditions; Translations: [PERSONAL HISTORY OTH SPEC CONDITION] Onset: 12-13-2022 Episodic Residual codes; unclassified (4 sources) History of left mastectomy; Translations: [Acquired [...] 03-03-2024 Episodic Residual codes; unclassified (1 source) Painful scar; Translations: [Pain, unspecified] 02-15-2025 Episodic Residual codes; unclassified (1 source) Bilateral lower limb edema; Translations: [Localized edema] 04-13-2025 Episodic Residual codes; unclassified (1 source) Localized edema; Translations: [Bilateral leg edema] Onset: 04-13-2025 Episodic Residual codes; unclassified (1 source) Pain, unspecified; Translations: [Painful scar] Onset: 02-15-2025 Episodic Residual codes; unclassified (1 source) Pain, unspecified; Translations: [Pain, unspecified] Onset: 02-24-2018 Rheumatoid arthritis and related disease (20 sources) Rheumatoid arthritis; Translations: [Rheumatoid arthritis, unspecified] Onset: 07-26-2023 07-26-2023 Chronic Spondylosis; intervertebral disc disorders; other back problems (20 sources) Spinal stenosis other than cervical; Translations: [Spinal stenosis, site unspecified] Onset: 03-13-2022 05-06-2007 Episodic Thyroid disorders (20 sources) Thyroid nodule; Translations: [Nontoxic single thyroid nodule] Onset: 05-18-2024 Chronic Comment on above: Problem List clean-u p per request of Phys. EHR Cmte Unclassified (20 sources) ASA CLASS II Onset: 05-06-2007 05-06-2007 Unclassified (1 source) CONTACT W/AND (SUSP) EXPOS COVID-19; Translations: [CONTACT W/AND (SUSP) EXPOS COVID-19] Onset: 12-13-2022 Unclassified (1 source) PERSONAL HISTORY OF COVID-19; Translations: [PERSONAL HISTORY OF COVID-19] Onset: 12-13-2022 Unclassified (1 source) 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; Translations: [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] Onset: 02-12-2024 Unclassified (1 source) Acute candidiasis of vulva and vagina; Translations: [Acute candidiasis of vulva and vagina] Onset: 04-05-2025 Unclassified (1 source) Annual Exam Onset: 06-10-2024 Unclassified (1 source) Results Onset: 04-13-2024 Unclassified (1 source) Class 3 severe obesity with body mass index (BMI) of 45.0 to 49.9 in adult, unspecified obesity type, unspecified whether serious comorbidity present (HCC); Translations: [Class 3 severe obesity with body mass index (BMI) of 45.0 to 49.9 in adult, unspecified obesity type, unspecified whether serious comorbidity present (HCC)] Onset: 03-15-2022 Past or Other Problems Problem Classification Problem Date Documented Date Episodic/Chronic Calculus of urinary tract (20 sources) Kidney stone; Translations: [Calculus of kidney] Onset: 07-06-2021 04-02-2023 Episodic Cardiac dysrhythmias (20 sources) Paroxysmal atrial fibrillation; Translations: [Paroxysmal atrial fibrillation] Onset: 12-08-2021 Resolved: 04-02-2023 Chronic Cardiac dysrhythmias (20 sources) Palpitations; Translations: [Palpitations] Onset: 02-05-2023 02-05-2023 Episodic Diabetes mellitus without complication (20 sources) Abnormal glucose level; Translations: [Other abnormal glucose] Onset: 04-24-2023 04-24-2023 Episodic Genitourinary symptoms and ill-defined conditions (3 sources) Dysuria; Translations: [Dysuria] 11-17-2023 Episodic Heart valve disorders (20 sources) [...] Translations: [WEAKNESS] Onset: 03-15-2022 Episodic Mood disorders (20 sources) Mood disorders Onset: 06-10-2024 Resolved: 04-05-2025 06-10-2024 Nausea and vomiting (1 source) Nausea; Translations: [NAUSEA] Onset: 03-15-2022 Episodic Nonmalignant breast conditions (4 sources) Other specified disorders of breast; Translations: [Lump in right breast] Onset: 09-20-2023 01-14-2024 Episodic Nonspecific chest pain (4 sources) Other chest pain; Translations: [Chest pain] Onset: 03-15-2022 11-05-2023 Episodic Other aftercare (1 source) Post-discharge follow-up; Translations: [Encounter for follow-up examination after completed treatment for conditions other than malignant neoplasm] 11-17-2023 Episodic Other connective tissue disease (20 sources) Other symptoms and signs involving the musculoskeletal system; Translations: [Other musculoskeletal symptoms referable to limbs] Onset: 03-14-2022 03-15-2022 Episodic Other eye disorders (20 sources) H/O: L cataract extraction; Translations: [Cataract extraction status, left eye] Onset: 06-09-2024 06-09-2024 Episodic Other eye disorders (20 sources) H/O: R cataract extraction; Translations: [Cataract extraction status, right eye] Onset: 06-18-2024 06-18-2024 Episodic Other eye disorders (1 source) Cataract extraction status, right eye; Translations: [Status post cataract surgery, right] Onset: 06-18-2024 Episodic Other eye disorders (1 source) Cataract extraction status, left eye; Translations: [Status post cataract surgery, left] Onset: 06-09-2024 Episodic Other inflammatory condition of skin (1 source) Intertrigo; Translations: [Erythema intertrigo] 11-27-2023 Episodic Other lower respiratory disease (1 [...] 04-21-2018 04-21-2018 Episodic Other non-traumatic joint disorders (20 sources) Hip pain; Translations: [Pain in left hip] Onset: 04-24-2023 04-24-2023 Episodic Other non-traumatic joint disorders (1 source) Multiple joint pain; Translations: [Pain in unspecified joint] 06-10-2024 Episodic Other non-traumatic joint disorders (1 source) Pain in unspecified hip; Translations: [Pain in unspecified hip] Onset: 06-10-2024 Episodic Other non-traumatic joint disorders (1 source) Pain in unspecified joint; Translations: [Pain in unspecified joint] Onset: 06-10-2024 Episodic Other nutritional; endocrine; and metabolic disorders (20 sources) Overweight; Translations: [Overweight] Onset: 04-24-2023 04-24-2023 Episodic Otitis media and related conditions (2 sources) Non-suppurative otitis media; Translations: [Unspecified nonsuppurative otitis media, right ear] 10-09-2023 Episodic Pulmonary heart disease (20 sources) Pulmonary embolism; Translations: [Other pulmonary embolism without acute cor pulmonale] Onset: 11-05-2023 05-18-2024 Episodic Residual codes; unclassified (20 sources) Edema; Translations: [Edema, unspecified] Onset: 01-31-2023 01-31-2023 Episodic Residual codes; unclassified (1 source) Generalized edema; Translations: [Generalized edema] Onset: 09-18-2023 Episodic Residual codes; unclassified (20 sources) Edema of lower leg ; Translations: [Localized edema] Onset: 04-24-2023 04-24-2023 Episodic Residual codes; unclassified (20 sources) Generalized chronic body pains; Translations: [Pain, unspecified] Onset: 04-24-2023 04-24-2023 Episodic Skin and subcutaneous tissue infections (6 sources) Abscess of groin; Translations: [Cutaneous abscess of groin] Onset: 10-15-2024 01-07-2024 Episodic Unclassified (1 source) Cough R05.9 Unclassified (1 source) Contact with and (suspected) exposure to covid-19 Z20.822 Viral infection (1 source) COVID-19 Results Test Name Value Interpretation Reference Range Facility CNOVon 04-16-2025 CNOV Normal [facility] HISTORY PHYSICALon HISTORY PHYSICAL Normal [facility] SPIROMETRY WITH DILATOR IF O BSTRUCTEDon 04-16-2025 FEF25% PRE (L/S) 4.14 L/S [place] ERT06-38% LLN (L/S) 0.80 L/S [facility] AOW27-02% PRE (L/S) 1.53 L/S [facility] DUI10-03% PREDICTED (L/S) 1.74 L/S [facility] FEF75% LLN (L/S) 0.15 L/S [place] FEF75% PRE (L/S0 0.45 L/S [place] FEF75% PREDICTED (L/S) 0.41 L/S [facility] FEF75% ULN (L/S) 1.09 L/S [place] FET PRE (S) 6.41 S [facility] FEV1 LLN (L) 1.33 L [facility] FEV1 PRE (L) 1.62 L [facility] FEV1 PREDICTED (L) 1.91 L [facility] FEV1 ULN (L) 2.45 L [facility] FEV1/FVC LLN (%) 66 % [place] FEV1/FVC PRE (%) 79 % [place] FEV1/FVC PREDICTED (%) 79 % [facility] FVC LLN (L) 1.71 L [facility] FVC PRE (L) 2.06 L [facility] FVC PREDICTED (L) 2.42 L [facility] FVC ULN (L) 3.15 L [facility] PEF LLN (L/S) 3.61 L/S [facility] PEF PRE (L/S) 4.16 L/S [facility] PEF ULN (L/S) 6.72 L/S [facility] [place] [facility] [address] [place], [place] [address] Test Date: 2025-04-16 Pat Name: MINAL CAPUTO Department: Room: 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 Start of test and EOFE criteria met. //FP IMPRESSION: Spirometry is normal. Electronically Signed On 04-16-2025 09:54:21 EDT by Melonie Paz MD ID: [id number] Name: MINAL CAPUTO Race: White Ht: 61.02 in Wt: 260.59 lbs Age: 69 Gender: Female : 1955 Dx: Dyspnea and respiratory abnormalities_ Smoking Hx: Non-smoker Doctor: BOOM TIM Test Date: 04/16/2025 Site: [facility] Tech: Leonard Cornejo PRE-BRONCH POST-BRONCH Mookie LLN Pred ULN %Pred ZScore Mookie %Pred %Chg ZScore SPIROMETRY FVC 2.06 1.71 2.42 3.15 84 -0.84 FEV1 1.62 1.33 1.91 2.45 84 -0.84 FEV1/FVC 0.79 0.66 0.79 0.90 98 -0.12 FEFMax 4.16 3.61 5.17 6.72 80 -1.06 FEF50 2.52 1.24 2.85 4.46 88 -0.34 FIF50 2.48 FEF50/FIF50 1.01 90-100 FIVC 1.98 YBO45-79 1.53 0.80 1.74 3.07 87 -0.32 ExpiredTime 6.41 TimeToFEFMax 0.13 [place] 0.10 VolExtrap% 5 Comments: Current ATS/ERS acceptability and repeatability standards for spirometry met. Start of test and EOFE criteria met. //FP PULMONARY FUNCTION LAB [facility] SPIROMETRY WITH DILATOR IF OBSTRUCTED Normal [facility] CNOVSPon 04-13-2025 CNOVSP Normal [facility] CNOVSPon 04-01-2025 CNOVSP Normal [facility] US KIDNEY/BLADDERon 04-01-20 25 US KIDNEY/BLADDER * * *Final Report* * * DATE OF EXAM: Apr 01 2025 9:29AM [facility] 1055 - KIDNEY/BLADDER / PROCEDURE REASON: Stage 3 chronic [...] calculus. -Lesion: None. Bladder: Normal sonographic appearance. IMPRESSION: No hydronephrosis. Cryptographic Clerk: BEA Transcribe Date/Time: Apr 04 2025 12:16P Dictated by : LINDA MARCIAL MD This examination was interpreted and the report reviewed and electronically signed by: LINDA MARCIAL MD on Apr 04 2025 12:18PM EST [id number] Normal [facility] CBC W Auto Differential pane l (Bld)on 03-30-2025 Basophils (Bld) [#/Vol] 0.04 10*3/uL [facility] Basophils/100 WBC (Bld) 1.1 % [facility] Differential cell count method Nom (Bld) Auto [facility] Eosinophils (Bld) [#/Vol] 0.05 10*3/uL [facility] Eosinophils/100 WBC (Bld) 1.4 % [facility] Erythrocyte distribution width (RBC) [Ratio] 14.6 % 11.5 - 15.0 % [facility] Hematocrit (Bld) [Volume fraction] 38.1 % 36.0 - 46.0 % [facility] Hemoglobin (Bld) [Mass/Vol] 12.8 g/dL 11.5 - 15.5 g/dL [facility] Immature granulocytes (Bld) [#/Vol] [facility] Immature granulocytes/100 WBC (Bld) 0.3 % [facility] Interpretation and review of laboratory results Abnormal [facility] Lymphocytes (Bld) [#/Vol] 0.77 10*3/uL Low [facility] Lymphocytes/100 WBC (Bld) 21.2 % [facility] MCH (RBC) [Entitic mass] 34.9 pg High 26.0 - 34.0 pg [facility] MCHC (RBC) [Mass/Vol] 33.6 g/dL 30.5 - 36.0 g/dL [facility] MCV (RBC) [Entitic vol] 103.8 fL High 80.0 - 100.0 fL [facility] Monocytes (Bld) [#/Vol] 0.18 10*3/uL [facility] Monocytes/100 WBC (Bld) 4.9 % [facility] Neutrophils (Bld) [#/Vol] 2.59 10*3/uL [facility] Neutrophils/100 WBC (Bld) 71.1 % [facility] Nucleated RBC (Bld) [#/Vol] NINF [facility] Nucleated RBC/100 WBC (Bld) [Ratio] 0 % /100 WBC [facility] Platelet mean volume (Bld) [Entitic vol] 9 fL 9.0 - 12.7 fL [facility] Platelets (Bld) [#/Vol] 346 10*3/uL [facility] RBC (Bld) [#/Vol] 3.67 10*6/uL Low 3.90 - 5.20 m/uL [facility] WBC (Bld) [#/Vol] 3.64 10*3/uL Low [facility] Basophils (Bld) [#/Vol] 0.04 10*3/uL Normal <0.11 [facility] Comment on above: Order Comment: Speci men Type: BLOOD SPECIMENOrdering Facility: [facility] Address: [address] [place] [address] Performed By: #### 5 7021-8 ####[facility] [id number] [place] [address] Basophils/100 WBC (Bld) 1.1 % Normal [facility] Comment on above: Order Comment: Speci men Type: BLOOD SPECIMENOrdering Facility: [facility] Address: [address] [place] [address] Performed By: #### 5 7021-8 ####[facility] [id number] [place] [address] Differential cell count method Nom (Bld) Auto Normal [facility] Comment on above: Order Comment: Speci men Type: BLOOD SPECIMENOrdering Facility: [facility] Address: [address] [place] [address] Performed By: #### 5 7021-8 ####[facility] [id number] [place] [address] Eosinophils (Bld) [#/Vol] 0.05 10*3/uL Normal <0.46 [facility] Comment on above: Order Comment: Speci men Type: BLOOD SPECIMENOrdering Facility: [facility] Address: [address] [place] [address] Performed By: #### 5 7021-8 ####[facility] [id number] [place] [address] Eosinophils/100 WBC (Bld) 1.4 % Normal [facility] Comment on above: Order Comment: Speci men Type: BLOOD SPECIMENOrdering Facility: [facility] Address: [address] [place] [address] Performed By: #### 5 7021-8 ####[facility] [id number] [place] [address] Erythrocyte distribution width (RBC) [Ratio] 14.6 % Normal 11.5-15.0 [facility] Comment on above: Order Comment: Speci men Type: BLOOD SPECIMENOrdering Facility: [facility] Address: [address] [place] [address] Performed By: #### 5 7021-8 ####[facility] [id number] [place] [address] Hematocrit (Bld) [Volume fraction] 38.1 % Normal 36.0-46.0 [facility] Comment on above: Order Comment: Speci men Type: BLOOD SPECIMENOrdering Facility: [facility] Address: [address] [place] [address] Performed By: #### 5 7021-8 ####[facility] [id number] [place] [address] Hemoglobin (Bld) [Mass/Vol] 12.8 g/dL Normal 11.5-15.5 [facility] Comment on above: Order Comment: Speci men Type: BLOOD SPECIMENOrdering Facility: [facility] Address: [address] [place] [address] Performed By: #### 5 7021-8 ####[facility] [id number] [place] [address] Immature granulocytes (Bld) [#/Vol] 10*3/uL Normal <0.10 [facility] Comment on above: Order Comment: Speci men Type: BLOOD SPECIMENOrdering Facility: [facility] Address: [address] [place] [address] Performed By: #### 5 7021-8 ####[facility] [id number] [place] [address] Immature granulocytes/100 WBC (Bld) 0.3 % Normal [facility] Comment on above: Order Comment: Speci men Type: BLOOD SPECIMENOrdering Facility: [facility] Address: [address] [place] [address] Performed By: #### 5 7021-8 ####[facility] [id number] [place] [address] Lymphocytes (Bld) [#/Vol] 0.77 10*3/uL Low 1.00-4.00 [facility] Comment on above: Order Comment: Speci men Type: BLOOD SPECIMENOrdering Facility: [facility] Address: [address] [place] [address] Performed By: #### 5 7021-8 ####[facility] [id number] [place] [address] Lymphocytes/100 WBC (Bld) 21.2 % Normal [facility] Comment on above: Order Comment: Speci men Type: BLOOD SPECIMENOrdering Facility: [facility] Address: [address] [place], [place] [address] Performed By: #### 5 7021-8 ####[facility] [id number] [place] [address] MCH (RBC) [Entitic mass] 34.9 pg High 26.0-34.0 [facility] Comment on above: Order Comment: Speci men Type: BLOOD SPECIMENOrdering Facility: [facility] Address: [address] [place] [address] Performed By: #### 5 7021-8 ####[facility] [id number] [place] [address] MCHC (RBC) [Mass/Vol] 33.6 g/dL Normal 30.5-36.0 [facility] Comment on above: Order Comment: Speci men Type: BLOOD SPECIMENOrdering Facility: [facility] Address: [address] [place] [address] Performed By: #### 5 7021-8 ####[facility] [id number] [place] [address] MCV (RBC) [Entitic vol] 103.8 fL High 80.0-100.0 [facility] Comment on above: Order Comment: Speci men Type: BLOOD SPECIMENOrdering Facility: [facility] Address: [address] [place] [address] Performed By: #### 5 7021-8 ####[facility] [id number] [place] [address] Monocytes (Bld) [#/Vol] 0.18 10*3/uL Normal <0.87 [facility] Comment on above: Order Comment: Speci men Type: BLOOD SPECIMENOrdering Facility: [facility] Address: [address] [place] [address] Performed By: #### 5 7021-8 ####[facility] [id number] [place] [address] Monocytes/100 WBC (Bld) 4.9 % Normal [facility] Comment on above: Order Comment: Speci men Type: BLOOD SPECIMENOrdering Facility: [facility] Address: [address] [place] [address] Performed By: #### 5 7021-8 ####[facility] [id number] [place] [address] Neutrophils (Bld) [#/Vol] 2.59 10*3/uL Normal 1.45-7.50 [facility] Comment on above: Order Comment: Speci men Type: BLOOD SPECIMENOrdering Facility: [facility] Address: [address] [place] [address] Performed By: #### 5 7021-8 ####[facility] [id number] [place] [address] Neutrophils/100 WBC (Bld) 71.1 % Normal [facility] Comment on above: Order Comment: Speci men Type: BLOOD SPECIMENOrdering Facility: [facility] Address: [address] [place] [address] Performed By: #### 5 7021-8 ####[facility] [id number] [place] [address] Nucleated RBC (Bld) [#/Vol] 10*3/uL Normal <0.01 [facility] Comment on above: Order Comment: Speci men Type: BLOOD SPECIMENOrdering Facility: [facility] Address: [address] [place] [address] Performed By: #### 5 7021-8 ####[facility] [id number] [place] [address] Nucleated RBC/100 WBC (Bld) [Ratio] 0.0 /100 WBC Normal [facility] Comment on above: Order Comment: Speci men Type: BLOOD SPECIMENOrdering Facility: [facility] Address: [address] [place] [address] Performed By: #### 5 7021-8 ####[facility] [id number] [place] [address] Platelet mean volume (Bld) [Entitic vol] 9.0 fL Normal 9.0-12.7 [facility] Comment on above: Order Comment: Speci men Type: BLOOD SPECIMENOrdering Facility: [facility] Address: [address] [place] [address] Performed By: #### 5 7021-8 ####[facility] [id number] [place] [address] Platelets (Bld) [#/Vol] 346 10*3/uL Normal 150-400 [facility] Comment on above: Order Comment: Speci men Type: BLOOD SPECIMENOrdering Facility: [facility] Address: [address] [place] [address] Performed By: #### 5 7021-8 ####[facility] [id number] [place] [address] RBC (Bld) [#/Vol] 3.67 10*6/uL Low 3.90-5.20 [facility] Comment on above: Order Comment: Speci men Type: BLOOD SPECIMENOrdering Facility: [facility] Address: [address] [place] [address] Performed By: #### 5 7021-8 ####[facility] [id number] [place] [address] WBC (Bld) [#/Vol] 3.64 10*3/uL Low 3.70-11.00 [facility] Comment on above: Order Comment: Speci men Type: BLOOD SPECIMENOrdering Facility: [facility] Address: [address] [place] [address] Performed By: #### 5 7021-8 ####[facility] [id number] [place] [address] Comprehensive metabolic 2000 panelOrdered By: Jennifer Rosa on 03-30-2025 Albumin [Mass/Vol] 4 g/dL 3.9 - 4.9 g/dL [facility] ALP [Catalytic activity/Vol] 105 U/L 34 - 123 U/L [facility] ALT [Catalytic activity/Vol] 19 U/L 7 - 38 U/L [facility] Anion gap [Moles/Vol] 11 mmol/L 8 - 15 mmol/L [facility] AST [Catalytic activity/Vol] 15 U/L 13 - 35 U/L [facility] Bilirubin [Mass/Vol] 0.6 mg/dL 0.2 - 1 .3 mg/dL [facility] Calcium [Mass/Vol] 9.5 mg/dL 8.5 - 10. 2 mg/dL [facility] Chloride [Moles/Vol] 101 mmol/L 98 - 10 7 mmol/L [facility] CO2 [Moles/Vol] 25 mmol/L 22 - 30 mmol/L [facility] Creatinine [Mass/Vol] 1.48 mg/dL High 0.58 - 0.96 mg/dL [facility] GFR/1.73 sq M.predicted among non-blacks MDRD (S/P/Bld) [Vol rate/Area] 38 mL/min/{1.73_m2} Low - PINF [facility] Comment on above: Estimated Glomerular Filtration [...] not accurately reflect actual GFR. Glucose [Mass/Vol] 140 mg/dL High 74 - 99 mg/dL [facility] Comment on above: The [place] Diab[employer] Association (ADA) provides guidance for [...] Standards of Medical Care in Diabetes 2016, [place] [employer]. Diabetes Care. 2016.39(Suppl 1). Interpretation and review of laboratory results Abnormal [facility] Potassium [Moles/Vol] 4.5 mmol/L 3.7 - 5.1 mmol/L [facility] Protein [Mass/Vol] 6.9 g/dL 6.3 - 8.0 g/dL [facility] Sodium [Moles/Vol] 137 mmol/L 136 - 144 mmol/L [facility] Urea nitrogen [Mass/Vol] 18 mg/dL 7 - 21 mg/dL [facility] Comprehensive metabolic 2000 panelon 03-30-2025 Albumin [Mass/Vol] 4.0 g/dL Normal 3.9-4.9 [facility] Comment on above: Order Comment: Speci men Type: BLOOD SPECIMENOrdering Facility: [facility] Address: [address] [place] [address] Performed By: #### 2 4323-8 ####[facility] [id number] [place] [address] ALP [Catalytic activity/Vol] 105 U/L Normal 34-123 [facility] Comment on above: Order Comment: Joeli kalyn Type: BLOOD SPECIMENOrdering Facility: [facility] Address: [address] [place] [address] Performed By: #### 2 4323-8 ####[facility] [id number] [place] [address] ALT [Catalytic activity/Vol] 19 U/L Normal 7-38 [facility] Comment on above: Order Comment: Joeli men Type: BLOOD SPECIMENOrdering Facility: [facility] Address: [address] [place] [address] Performed By: #### 2 4323-8 ####[facility] [id number] [place] [address] Anion gap [Moles/Vol] 11 mmol/L Normal 8-15 [facility] Comment on above: Order Comment: Speci men Type: BLOOD SPECIMENOrdering Facility: [facility] Address: [address] [place] [address] Performed By: #### 2 4323-8 ####[facility] [id number] [place] [address] AST [Catalytic activity/Vol] 15 U/L Normal 13-35 [facility] Comment on above: Order Comment: Speci men Type: BLOOD SPECIMENOrdering Facility: [facility] Address: [address] [place] [address] Performed By: #### 2 4323-8 ####[facility] [id number] [place] [address] Bilirubin [Mass/Vol] 0.6 mg/dL Normal 0.2-1.3 [facility] Comment on above: Order Comment: Speci men Type: BLOOD SPECIMENOrdering Facility: [facility] Address: [address] [place] [address] Performed By: #### 2 4323-8 ####[facility] [id number] [place] [address] Calcium [Mass/Vol] 9.5 mg/dL Normal 8.5-10.2 [facility] Comment on above: Order Comment: Speci men Type: BLOOD SPECIMENOrdering Facility: [facility] Address: [address] [place] [address] Performed By: #### 2 4323-8 ####[facility] [id number] [place] [address] Chloride [Moles/Vol] 101 mmol/L Normal 98-107 [facility] Comment on above: Order Comment: Speci men Type: BLOOD SPECIMENOrdering Facility: [facility] Address: [address] [place] [address] Performed By: #### 2 4323-8 ####[facility] [id number] [place] [address] CO2 [Moles/Vol] 25 mmol/L Normal 22-30 [facility] Comment on above: Order Comment: Speci men Type: BLOOD SPECIMENOrdering Facility: [facility] Address: [address] [place] [address] Performed By: #### 2 4323-8 ####[facility] [id number] [place] [address] Creatinine [Mass/Vol] 1.48 mg/dL High 0.58-0.96 [facility] Comment on above: Order Comment: Speci men Type: BLOOD SPECIMENOrdering Facility: [facility] Address: [address] [place] [address] Performed By: #### 2 4323-8 ####[facility] [id number] [place] [address] eGFRcr SerPlBld CKD-EPI 2020 38 mL/min/1.73m??? Low >=60 [facility] Comment on above: Order Comment: Speci men Type: BLOOD SPECIMENOrdering Facility: [facility] Address: [address] [place] [address] Result Comment: Cristal mated Glomerular Filtration Rate [...] actual GFR. Performed By: #### 2 4323-8 ####[facility] [id number] [place] [address] Glucose [Mass/Vol] 140 mg/dL High 74-99 [facility] Comment on above: Order Comment: Speci men Type: BLOOD SPECIMENOrdering Facility: [facility] Address: [address] [place] [address] Result Comment: The [place] Diabetes Association (ADA) provides guidance for cutoff [...] Standards of Medical Care in Diabetes 2016, [place] [employer]. Diabetes Care. 2016.39(Suppl 1). Performed By: #### 2 4323-8 ####[facility] [id number] [place] [address] Potassium [Moles/Vol] 4.5 mmol/L Normal 3.7-5.1 [facility] Comment on above: Order Comment: Speci men Type: BLOOD SPECIMENOrdering Facility: [facility] Address: [address] [place] [address] Performed By: #### 2 4323-8 ####[facility] [id number] [place] [address] Protein [Mass/Vol] 6.9 g/dL Normal 6.3-8.0 [facility] Comment on above: Order Comment: Speci men Type: BLOOD SPECIMENOrdering Facility: [facility] Address: [address] [place] [address] Performed By: #### 2 4323-8 ####[facility] [id number] [place] [address] Sodium [Moles/Vol] 137 mmol/L Normal 136-144 [facility] Comment on above: Order Comment: Speci men Type: BLOOD SPECIMENOrdering Facility: [facility] Address: [address] [place] [id number] Performed By: #### 2 4323-8 ####[facility] [id number] [place] [address] Urea nitrogen [Mass/Vol] 18 mg/dL Normal 7-21 [facility] Comment on above: Order Comment: Speci men Type: BLOOD SPECIMENOrdering Facility: [facility] Address: [address] [place] [address] Performed By: #### 2 4323-8 ####[facility] [id number] [place] [address] DBT Breast - bilateral scree ningon 03-30-2025 [facility] Radiology Study observation (narrative) [facility] CNPNon 03-26-2025 CNPN Normal [facility] HISTORY PHYSICALon HISTORY PHYSICAL Normal [facility] BI MAMMOGRAM SCREENING TOMOS YNTHESIS RIGHTon 03-05-2025 BI MAMMOGRAM SCREENING TOMOSYNTHESIS RIGHT This is a summary report. The complete report is available in the patient's medical record. If you cannot access the medical record, please contact the sending organization for a detailed fax or copy. EXAMINATION: BI MAMMOGRAM SCREENING TOMOSYNTHESIS RIGHT CLINICAL [...] thickening which would be suggestive of malignancy. IMPRESSION: No specific evidence of malignancy seen in the right breast. BIRADS 2 - Benign Findings DENSITY: The breasts are heterogeneously dense, which may obscure small masses. FOLLOW-UP: Routine Screening Mammogram Board Certified Radiologists. Accredited by the ACR and FDA. MAMMOGRAPHY IS VERY IMPORTANT TO YOUR HEALTH. THE [place] [employer] GUIDELINES RECOMMEND THAT WOMEN 40 YEARS OF AGE AND OLDER SHOULD HAVE A MAMMOGRAM EVERY YEAR. A REMINDER LETTER WILL BE SENT AT THE APPROPRIATE TIME. ELECTRONICALLY SIGNED BY: Yusuf Staton M.D. Normal Not Available Comment on above: Order Comment: Maste ctomy CNOVon 03-05-2025 CNOV Normal [facility] CNPNon 03-04-2025 CNPN Normal [facility] OPERATIVE NOon 02-23-2025 OPERATIVE NO HNO ID: [id number] Author: Andres MANN MD Service: Plastic Surgery Author Type: Physician Type: Operative Report Filed: 02/23/2025 10:13 Note Text: Minal Caputo [id number] February 23, 2025 Time: 1015 Place: [facility] Preop Diagnosis: Left face inclusion cyst Postop diagnosis:same Procedure: Excision of left face inclusion cyst, 2cm excised; complex repair 3.5 cm (cpt 69962) Anesthesia: Local Surgeon: Dharmesh Mann MD No qualified residents to assist with the procedure Legal Aid: ZEN Brief History: The patient was seen In the office with concerns regarding the ff.: face cyst, increasing in size. I discussed expectant management vs. Surgical removal. I discussed The merits and demertis Of each option. I discussed risks and complications associated with the procedure. Discussed potential need/desire for revisions/reoperatiions. No Guarantees given. The patient elected to go ahead with surgical treatment and signed consent. Details of the procedure: The patient was seen in the preop area and the patient noted the procedure to be done and identified the treatment area. Site Verification: patient identified the treatment area, I marked it, the circ nurse confirmed.. I reviewed the planned procedure. The patient was taken to the operating room and laid: supine position. The circulating nurse reviewed the consent, I Infiltrated the treatment area With local anesthetic, it was then prepped and draped in the usual sterile fashion. Blade used:#15 An Incision was made along the marked area - and the dissection was taken through dermis and subcutaneous tissue, the cyst wall identified, dissected from the surrounding soft tissues and removed from the wound. It was sent for permanent section pathology. Hemostasis was obtained, the wound was then irrigated. Repair: The following was done- The atrophic skin excised with a #15 blade. Extensive undermining was done: Layer: subcutaenous Extent: 2cm each side of the defect, width of defect 2cm Deep Subcutaneous tissue - dermal layer closed with: 3-0 monocryl Skin closed with:5-0 prolene Dressing: ointment The patient tolerated the procedure well, instructions given, patient was then taken to the recovery area in stable condition. EBL: minimal Specimens: face cyst Drains: none Start time: ~1000 End time: ~1015 I did the entire procedure myself and was present the entire procedure. Signed: Dharmesh Mann MD [facility] Pathology biopsy report Inder (Tiss)on 02-23-[address] [facility] Comment on above: Order Comment: Speci men Type: TISSUE SPECIMEN Ordering Facility: [facility] Address: [address] [place] [address] Result Comment: Albert mccray Developed Test (LDT) Disclaimer: Performance characteristics of immunohistochemical, immunofluorescent, and chromogenic in-situ hybridization tests have been determined by the performing laboratory within [facility] Pathology and Laboratory Medicine Department ([facility], [facility], [facility], [facility], [facility], [facility], or [facility]) in a manner consistent with CLIA requirements. One or more of these tests may not have been cleared or approved by the FDA. [facility] is regulated under CLIA as qualified to perform high-complexity testing. These tests are used for clinical purposes. These should not be regarded as investigational or for research. Positive and negative controls stain appropriately. Performed By: #### 6 6121-5 #### [facility] CLIA [id number] [address] [place] [address] [place] CASE REPORT Normal [facility] Comment on above: Order Comment: Speci men Type: TISSUE SPECIMEN Ordering Facility: [facility] Address: [address] [place] [address] Result Comment: Surg ica Pathology Report Case: [id number] Authorizing Provider: Andres Mann MD Collected: 02/23/2025 10:06 AM Ordering Location: [facility] Surgery Received: 02/23/2025 10:10 AM Pathologist: Rosa Whyte MD Specimen: Cyst, Skin, Excision, cyst - left cheek Performed By: #### 6 6121-5 #### [facility] CLIA [id number] [address] [place], [place] [id number] [place] CLINICAL HISTORY Normal [facility] Comment on above: Order Comment: Speci men Type: TISSUE SPECIMEN Ordering Facility: [facility] Address: [address] [place] [address] Result Comment: Pre- op diagnosis: Inclusion cyst [L72.0] Performed By: #### 6 6121-5 #### [facility] CLIA [id number] [address] [place] [address] [place] FINAL DIAGNOSIS [facility] Comment on above: Order Comment: Speci men Type: TISSUE SPECIMEN Ordering Facility: [facility] Address: [address] [place] [address] Result Comment: A. S kin, left cheek, excision: - Epidermal inclusion cyst. NANCY/navarro 02/25/2025 at 2321 EDT Performed By: #### 6 6121-5 #### [facility] CLIA [id number] [address] [place] [address] OF [facility] FINAL PERFORMING LAB Normal [facility] Comment on above: Order Comment: Speci men Type: TISSUE SPECIMEN Ordering Facility: [facility] Address: [address] [place] [address] Result Comment: Diag nostic interpretation performed at: [facility], [address] [place] [address] CLIA# [id number] Housetrailer Servicer: Amor Eisenberg MD Performed By: #### 6 6121-5 #### [facility] CLIA [id number] [address] [place], [place] [id number] [facility] [place] GROSS DESCRIPTION Normal [facility] Comment on above: Order Comment: Speci men Type: TISSUE SPECIMEN Ordering Facility: [facility] Address: [address] [place], [place] [address] Result Comment: Jairo hoangt, Skin, Excision Received in formalin is an unoriented elliptical segment of skin and subcutaneous tissue measuring 2.1 x 2.0 x 1.5 cm. The skin surface is grossly unremarkable. The specimen does resemble a ruptured cyst. A route sales representative section is submitted in one cassette. BC February 23, 2025 1:31 PM Gross examination performed at [facility], [address] [place] [address] Performed By: #### 6 6121-5 #### [facility] CLIA [id number] [address] [place] [address] [place] ALBUMIN/CREATININE RATIO, UR INEon 02-19-2025 Albumin DL <= 20 mg/L (U) [Mass/Vol] mg/dL Normal [facility] Comment on above: Order Comment: Speci men Type: URINE SPECIMENOrdering Facility: [facility] Address: [address] [place] [address] Performed By: #### U ACR, 2890-2 ####[facility] [id number] [address] [place] Albumin/Creatinine (U) [Mass ratio] <23 Normal <30 [facility] Comment on above: Order Comment: Speci men Type: URINE SPECIMENOrdering Facility: [facility] Address: [address] [place] [address] Result Comment: Adul t Male and Female Nephrotic Criteria:<30 mg/g is considered normal to mildly [id number] mg/g is considered moderately increased>300 mg/g is considered severely increasedKDIGO. (2013). KDIGO 2012 Clinical Practice Guideline for the Evaluation and Management of Chronic Kidney Disease. Official Journal of the International Society of Nephrology, 3(1), 1-150. Performed By: #### U ACR, 2890-2 ####[facility] [id number] [address] [place] CNOVon 02-19-2025 CNOV Normal [facility] Prot/Creat Uron 02-19-2025 Creatinine (U) [Mass/Vol] 52.7 mg/dL Normal 20.0-300.0 [facility] Comment on above: Order Comment: Speci men Type: URINE SPECIMENOrdering Facility: [facility] Address: [address] [place] [address] Performed By: #### U ACR, 2890-2 ####[facility] [id number] [place] [address] [place] Protein/Creatinine (U) [Mass ratio] 0.15 mg/mg High <0.15 [facility] Comment on above: Order Comment: Speci men Type: URINE SPECIMENOrdering Facility: [facility] Address: [address] [place] [address] Result Comment: Adul t Proteinuria Categories:<0.15 mg/mg is considered normal to mildly increased0.15 - 0.50 mg/mg is considered moderately increased>0.50 mg/mg is considered severely increasedKDIGO. (2013). KDIGO 2012 Clinical Practice Guideline for the Evaluation and Management of Chronic Kidney Disease. Official Journal of the International Society of Nephrology, 3(1), 1-150. Performed By: #### U ACR, 2889-2 ####[facility] [id number] [place] [address] [place] Protein/Creatinine (U) [Mass ratio]on 02-19-2025 Protein (U) [Mass/Vol] 8 mg/dL Normal 0-20 [facility] Comment on above: Order Comment: Speci men Type: URINE SPECIMENOrdering Facility: [facility] Address: [address] [place] [address] Performed By: #### U ACR, 2889-2 ####[facility] [id number] [place] [address] [place] UA DIP, URINE (POC)on 2024 BILIRUBIN UA (POCT) Negative Negative [facility] CLARITY UA (POCT) Clear [facility] COLOR UA (POCT) Yellow [facility] GLUCOSE UA (POCT) Negative Negative mg/dL [facility] Hemoglobin Ql (U) Negative Negative [facility] Interpretation and review of laboratory results Abnormal [facility] KETONE UA (POCT) Negative Negative mg/dL [facility] LEUKOCYTES UA (POCT) Small Abnormal Negative [facility] NITRITE [facility] (POCT) Negative Negative [facility] PH UA (POCT) 5.5 4.5 - 8.0 [facility] Protein Ql (U) Negative Negative mg/dL [facility] SPECIFIC GRAVITY UA (POCT) 1.015 1.005 - 1.030 [facility] UROBILINOGEN UA (POCT) 0.2 Normal E.U./dL [facility] Location:[facility], [address] , [place], [place], [address] [facility] POINT OF CARE [facility] CNPNon 02-17-2025 CNPN Normal [facility] CNOVon 02-15-2025 CNOV Normal [facility] CNOV Normal [facility] CNOV Normal [facility] Large Joint Arthro/Inj: L hi p jointon 02-15-2025 Micah Son DO 02/15/2025 2:18 PM Large Joint Arthro/Inj: [...] these instructions. Informed Consent Consent Obtained: Verbal [place] Protocol A moment to CARE was completed. [...] the bedside nurse for hospitalized patients) applicable. [facility] US HIP-INJECTION LT (POC) OR I USE ONLYon 02-15-2025 [facility] XR HIP 3V PELV+ AP/LAT LTon 02-15-2025 XR HIP 3V PELV+ AP/LAT LT Normal [facility] XR Pelvis and Hip - left AP and Lateral frogon 02-15-2025 * * *Final Report* * * DATE [...] in the lower lumbar spine, incompletely assessed. DIVISION OF RADIOLOGY Provider, [facility] - 02/15/2025 * * *Final Report* * [...] Severe left hip osteoarthritis, progressed since 2021. Cryptographic Clerk: PSCB Transcribe Date/Time: Feb 15 2025 1:05P Dictated by : ABUNDIO VILLA MD This examination was interpreted and the report reviewed and electronically signed by: ABUNDIO VILLA MD on Feb 15 2025 1:07PM [facility] Radiology Study observation (narrative) [facility] XR Pelvis and Hip - left AP and Lateral frogOrdered By: Ccf Provider on 02-15-2025 [facility] CNOVSPon 12-30-2024 CNOVSP Normal [facility] CBC W Auto Differential pane l (Bld)on 12-24-2024 Basophils (Bld) [#/Vol] 0.05 10*3/uL [facility] Basophils/100 WBC (Bld) 2.2 % [facility] Differential cell count method Nom (Bld) Auto [facility] Eosinophils (Bld) [#/Vol] 0.17 10*3/uL [facility] Eosinophils/100 WBC (Bld) 7.4 % [facility] Erythrocyte distribution width (RBC) [Ratio] 18.3 % High 11.5 - 15.0 % [facility] Hematocrit (Bld) [Volume fraction] 33.5 % Low 36.0 - 46.0 % [facility] Hemoglobin (Bld) [Mass/Vol] 11.4 g/dL Low 11.5 - 15.5 g/dL [facility] Immature granulocytes (Bld) [#/Vol] [facility] Immature granulocytes/100 WBC (Bld) 0 % [facility] Interpretation and review of laboratory results Abnormal [facility] Lymphocytes (Bld) [#/Vol] 0.51 10*3/uL Low [facility] Lymphocytes/100 WBC (Bld) 22.1 % [facility] MCH (RBC) [Entitic mass] 34.5 pg High 26.0 - 34.0 pg [facility] MCHC (RBC) [Mass/Vol] 34 g/dL 30.5 - 36.0 g/dL [facility] MCV (RBC) [Entitic vol] 101.5 fL High 80.0 - 100.0 fL [facility] Monocytes (Bld) [#/Vol] 0.23 10*3/uL [facility] Monocytes/100 WBC (Bld) 10 % [facility] Neutrophils (Bld) [#/Vol] 1.35 10*3/uL Low [facility] Neutrophils/100 WBC (Bld) 58.3 % [facility] Nucleated RBC (Bld) [#/Vol] NINF [facility] Nucleated RBC/100 WBC (Bld) [Ratio] 0 % /100 WBC [facility] Platelet mean volume (Bld) [Entitic vol] 9.1 fL 9.0 - 12.7 fL [facility] Platelets (Bld) [#/Vol] 304 10*3/uL [facility] RBC (Bld) [#/Vol] 3.3 10*6/uL Low 3.90 - 5.20 m/uL [facility] WBC (Bld) [#/Vol] 2.31 10*3/uL Low [facility] Basophils (Bld) [#/Vol] 0.05 10*3/uL Normal <0.11 [facility] Comment on above: Order Comment: Speci men Type: BLOOD SPECIMENOrdering Facility: [facility] Address: [address] [place] [address] Performed By: #### 5 7021-8 ####[facility] [id number] [place] [address] Basophils/100 WBC (Bld) 2.2 % Normal [facility] Comment on above: Order Comment: Speci men Type: BLOOD SPECIMENOrdering Facility: [facility] Address: [address] [place] [address] Performed By: #### 5 7021-8 ####[facility] [id number] [place] [address] Differential cell count method Nom (Bld) Auto Normal [facility] Comment on above: Order Comment: Speci men Type: BLOOD SPECIMENOrdering Facility: [facility] Address: [address] [place] [address] Performed By: #### 5 7021-8 ####[facility] [id number] [place] [address] Eosinophils (Bld) [#/Vol] 0.17 10*3/uL Normal <0.46 [facility] Comment on above: Order Comment: Speci men Type: BLOOD SPECIMENOrdering Facility: [facility] Address: [address] [place] [address] Performed By: #### 5 7021-8 ####[facility] [id number] [place] [address] Eosinophils/100 WBC (Bld) 7.4 % Normal [facility] Comment on above: Order Comment: Speci men Type: BLOOD SPECIMENOrdering Facility: [facility] Address: [address] [place] [address] Performed By: #### 5 7021-8 ####[facility] [id number] [place] [address] Erythrocyte distribution width (RBC) [Ratio] 18.3 % High 11.5-15.0 [facility] Comment on above: Order Comment: Speci men Type: BLOOD SPECIMENOrdering Facility: [facility] Address: [address] [place] [address] Performed By: #### 5 7021-8 ####[facility] [id number] [place] [address] Hematocrit (Bld) [Volume fraction] 33.5 % Low 36.0-46.0 [facility] Comment on above: Order Comment: Speci men Type: BLOOD SPECIMENOrdering Facility: [facility] Address: [address] [place] [address] Performed By: #### 5 7021-8 ####[facility] [id number] [place] [address] Hemoglobin (Bld) [Mass/Vol] 11.4 g/dL Low 11.5-15.5 [facility] Comment on above: Order Comment: Speci men Type: BLOOD SPECIMENOrdering Facility: [facility] Address: [address] [place] [address] Performed By: #### 5 7021-8 ####[facility] [id number] [place] [address] Immature granulocytes (Bld) [#/Vol] 10*3/uL Normal <0.10 [facility] Comment on above: Order Comment: Speci men Type: BLOOD SPECIMENOrdering Facility: [facility] Address: [address] [place] [address] Performed By: #### 5 7021-8 ####[facility] [id number] [place] [address] Immature granulocytes/100 WBC (Bld) 0.0 % Normal [facility] Comment on above: Order Comment: Speci men Type: BLOOD SPECIMENOrdering Facility: [facility] Address: [address] [place] [address] Performed By: #### 5 7021-8 ####[facility] [id number] [place] [address] Lymphocytes (Bld) [#/Vol] 0.51 10*3/uL Low 1.00-4.00 [facility] Comment on above: Order Comment: Speci men Type: BLOOD SPECIMENOrdering Facility: [facility] Address: [address] [place] [address] Performed By: #### 5 7021-8 ####[facility] [id number] [place] [address] Lymphocytes/100 WBC (Bld) 22.1 % Normal [facility] Comment on above: Order Comment: Speci men Type: BLOOD SPECIMENOrdering Facility: [facility] Address: [address] [place] [address] Performed By: #### 5 7021-8 ####[facility] [id number] [place] [address] MCH (RBC) [Entitic mass] 34.5 pg High 26.0-34.0 [facility] Comment on above: Order Comment: Speci men Type: BLOOD SPECIMENOrdering Facility: [facility] Address: [address] [place] [address] Performed By: #### 5 7021-8 ####[facility] [id number] [place] [address] MCHC (RBC) [Mass/Vol] 34.0 g/dL Normal 30.5-36.0 [facility] Comment on above: Order Comment: Speci men Type: BLOOD SPECIMENOrdering Facility: [facility] Address: [address] [place] [address] Performed By: #### 5 7021-8 ####[facility] [id number] [place] [address] MCV (RBC) [Entitic vol] 101.5 fL High 80.0-100.0 [facility] Comment on above: Order Comment: Speci men Type: BLOOD SPECIMENOrdering Facility: [facility] Address: [address] [place] [address] Performed By: #### 5 7021-8 ####[facility] [id number] [place] [address] Monocytes (Bld) [#/Vol] 0.23 10*3/uL Normal <0.87 [facility] Comment on above: Order Comment: Speci men Type: BLOOD SPECIMENOrdering Facility: [facility] Address: [address] [place] [address] Performed By: #### 5 7021-8 ####[facility] [id number] [place] [address] Monocytes/100 WBC (Bld) 10.0 % Normal [facility] Comment on above: Order Comment: Speci men Type: BLOOD SPECIMENOrdering Facility: [facility] Address: [address] [place] [address] Performed By: #### 5 7021-8 ####[facility] [id number] [place] [address] Neutrophils (Bld) [#/Vol] 1.35 10*3/uL Low 1.45-7.50 [facility] Comment on above: Order Comment: Speci men Type: BLOOD SPECIMENOrdering Facility: [facility] Address: [address] [place] [address] Performed By: #### 5 7021-8 ####[facility] [id number] [place] [address] Neutrophils/100 WBC (Bld) 58.3 % Normal [facility] Comment on above: Order Comment: Speci men Type: BLOOD SPECIMENOrdering Facility: [facility] Address: [address] [place] [address] Performed By: #### 5 7021-8 ####[facility] [id number] [place] [address] Nucleated RBC (Bld) [#/Vol] 10*3/uL Normal <0.01 [facility] Comment on above: Order Comment: Speci men Type: BLOOD SPECIMENOrdering Facility: [facility] Address: [address] [place] [address] Performed By: #### 5 7021-8 ####[facility] [id number] [place] [address] Nucleated RBC/100 WBC (Bld) [Ratio] 0.0 /100 WBC Normal [facility] Comment on above: Order Comment: Speci men Type: BLOOD SPECIMENOrdering Facility: [facility] Address: [address] [place] [address] Performed By: #### 5 7021-8 ####[facility] [id number] [place] [address] Platelet mean volume (Bld) [Entitic vol] 9.1 fL Normal 9.0-12.7 [facility] Comment on above: Order Comment: Speci men Type: BLOOD SPECIMENOrdering Facility: [facility] Address: [address] [place] [address] Performed By: #### 5 7021-8 ####[facility] [id number] [place] [address] Platelets (Bld) [#/Vol] 304 10*3/uL Normal 150-400 [facility] Comment on above: Order Comment: Speci men Type: BLOOD SPECIMENOrdering Facility: [facility] Address: [address] [place] [address] Performed By: #### 5 7021-8 ####[facility] [id number] [place] [address] RBC (Bld) [#/Vol] 3.30 10*6/uL Low 3.90-5.20 [facility] Comment on above: Order Comment: Speci men Type: BLOOD SPECIMENOrdering Facility: [facility] Address: [address] [place] [address] Performed By: #### 5 7021-8 ####[facility] [id number] [place] [address] WBC (Bld) [#/Vol] 2.31 10*3/uL Low 3.70-11.00 [facility] Comment on above: Order Comment: Speci men Type: BLOOD SPECIMENOrdering Facility: [facility] Address: [address] [place] [address] Performed By: #### 5 7021-8 ####[facility] [id number] [place] [address] CNNURSEon 12-24-2024 CNNURSE Normal [facility] metabolic 2000 panelOrdered By: Jennifer Rosa on 12-24-2024 Albumin [Mass/Vol] 4 g/dL 3.9 - 4.9 g/dL [facility] ALP [Catalytic activity/Vol] 96 U/L 34 - 123 U/L [facility] ALT [Catalytic activity/Vol] 16 U/L 7 - 38 U/L [facility] Anion gap [Moles/Vol] 12 mmol/L 8 - 15 mmol/L [facility] AST [Catalytic activity/Vol] 18 U/L 13 - 35 U/L [facility] Bilirubin [Mass/Vol] 0.5 mg/dL 0.2 - 1 .3 mg/dL [facility] Calcium [Mass/Vol] 9.3 mg/dL 8.5 - 10. 2 mg/dL [facility] Chloride [Moles/Vol] 105 mmol/L 98 - 10 7 mmol/L [facility] CO2 [Moles/Vol] 25 mmol/L 22 - 30 mmol/L [facility] Creatinine [Mass/Vol] 1.25 mg/dL High 0.58 - 0.96 mg/dL [facility] GFR/1.73 sq M.predicted among non-blacks MDRD (S/P/Bld) [Vol rate/Area] 46 mL/min/{1.73_m2} Low - PINF [facility] Comment on above: Estimated Glomerular Filtration [...] not accurately reflect actual GFR. Glucose [Mass/Vol] 181 mg/dL High 74 - 99 mg/dL [facility] Comment on above: The [place] Diabete [place] Association (ADA) provides guidance for [...] Standards of Medical Care in Diabetes 2016, [place] [employer]. Diabetes Care. 2016.39(Suppl 1). Interpretation and review of laboratory results Abnormal [facility] Potassium [Moles/Vol] 4.3 mmol/L 3.7 - 5.1 mmol/L [facility] Protein [Mass/Vol] 6.7 g/dL 6.3 - 8.0 g/dL [facility] Sodium [Moles/Vol] 142 mmol/L 136 - 144 mmol/L [facility] Urea nitrogen [Mass/Vol] 18 mg/dL 7 - 21 mg/dL [facility] Comprehensive metabolic 2000 panelon 12-24-2024 Albumin [Mass/Vol] 4.0 g/dL Normal 3.9-4.9 [facility] Comment on above: Order Comment: Speci men Type: BLOOD SPECIMENOrdering Facility: [facility] Address: [address] [place] [address] Performed By: #### 2 4323-8 ####[facility] [id number] [place] [address] ALP [Catalytic activity/Vol] 96 U/L Normal 34-123 [facility] Comment on above: Order Comment: Speci men Type: BLOOD SPECIMENOrdering Facility: [facility] Address: [address] [place] [address] Performed By: #### 2 4323-8 ####[facility] [id number] [place] [address] ALT [Catalytic activity/Vol] 16 U/L Normal 7-38 [facility] Comment on above: Order Comment: Speci men Type: BLOOD SPECIMENOrdering Facility: [facility] Address: [address] [place] [place] [address] Performed By: #### 2 4323-8 ####[facility] [id number] [place] [address] Anion gap [Moles/Vol] 12 mmol/L Normal 8-15 [facility] Comment on above: Order Comment: Speci men Type: BLOOD SPECIMENOrdering Facility: [facility] Address: [address] [place] [address] Performed By: #### 2 4323-8 ####[facility] [id number] [place] [address] AST [Catalytic activity/Vol] 18 U/L Normal 13-35 [facility] Comment on above: Order Comment: Speci men Type: BLOOD SPECIMENOrdering Facility: [facility] Address: [address] [place] [address] Performed By: #### 2 4323-8 ####[facility] [id number] [place] [address] Bilirubin [Mass/Vol] 0.5 mg/dL Normal 0.2-1.3 [facility] Comment on above: Order Comment: Speci men Type: BLOOD SPECIMENOrdering Facility: [facility] Address: [address] [place] [address] Performed By: #### 2 4323-8 ####[facility] [id number] [place] [address] Calcium [Mass/Vol] 9.3 mg/dL Normal 8.5-10.2 [facility] Comment on above: Order Comment: Speci men Type: BLOOD SPECIMENOrdering Facility: [facility] Address: [address] [place] [address] Performed By: #### 2 4323-8 ####[facility] [id number] [place] [address] Chloride [Moles/Vol] 105 mmol/L Normal 98-107 [facility] Comment on above: Order Comment: Speci men Type: BLOOD SPECIMENOrdering Facility: [facility] Address: [address] [place] [address] Performed By: #### 2 4323-8 ####[facility] [id number] [place] [address] CO2 [Moles/Vol] 25 mmol/L Normal 22-30 [facility] Comment on above: Order Comment: Speci men Type: BLOOD SPECIMENOrdering Facility: [facility] Address: [address] [place] [address] Performed By: #### 2 4323-8 ####[facility] [id number] [place] [address] Creatinine [Mass/Vol] 1.25 mg/dL High 0.58-0.96 [facility] Comment on above: Order Comment: Alison mccain Type: BLOOD SPECIMENOrdering Facility: [facility] Address: [address] [place] [address] Performed By: #### 2 4323-8 ####[facility] LABIA [id number] [place] [address] Creatinine and Glomerular filtration rate.predicted panel (S/P/Bld) 46 mL/min/1.73m??? Low >=60 [facility] Comment on above: Order Comment: Alison mccain Type: BLOOD SPECIMENOrdering Facility: [facility] Address: [address] [place] [address] Result Comment: Cristal mated Glomerular Filtration Rate [...] actual GFR. Performed By: #### 2 4323-8 ####[facility] [id number] [place] [address] Glucose [Mass/Vol] 181 mg/dL High 74-99 [facility] Comment on above: Order Comment: Alison mccain Type: BLOOD SPECIMENOrdering Facility: [facility] Address: [address] [place] [address] Result Comment: The [place] [employer] (ADA) provides guidance for cutoff [...] Standards of Medical Care in Diabetes 2016, [place] [employer]. Diabetes Care. 2016.39(Suppl 1). Performed By: #### 2 4323-8 ####[facility] [id number] [place] [address] Potassium [Moles/Vol] 4.3 mmol/L Normal 3.7-5.1 [facility] Comment on above: Order Comment: Speci men Type: BLOOD SPECIMENOrdering Facility: [facility] Address: [address] [place] [address] Performed By: #### 2 4323-8 ####[facility] [id number] [place] [address] Protein [Mass/Vol] 6.7 g/dL Normal 6.3-8.0 [facility] Comment on above: Order Comment: Speci men Type: BLOOD SPECIMENOrdering Facility: [facility] Address: [address] [place] [address] Performed By: #### 2 4323-8 ####[facility] [id number] [place] [address] Sodium [Moles/Vol] 142 mmol/L Normal 136-144 [facility] Comment on above: Order Comment: Speci men Type: BLOOD SPECIMENOrdering Facility: [facility] Address: [address] [place] [address] Performed By: #### 2 4323-8 ####[facility] [id number] [place] [address] Urea nitrogen [Mass/Vol] 18 mg/dL Normal 7-21 [facility] Comment on above: Order Comment: Speci men Type: BLOOD SPECIMENOrdering Facility: [facility] Address: [address] [place] [address] Performed By: #### 2 4323-8 ####[facility] [id number] [place] [address] CNPNon 12-22-2024 CNPN Normal [facility] CNPNon 10-16-2024 CNPN Normal [facility] CNOVon 10-15-2024 CNOV Normal [facility] CNPNon 10-13-2024 CNPN Normal [facility] CNOVSPon 10-02-2024 CNOVSP Normal [facility] CNNURSEon 09-29-2024 CNNURSE Normal [facility] CNPNon 09-14-2024 CNPN Normal [facility] CBC W Auto Differential pane l (Bld)on 09-11-2024 Basophils (Bld) [#/Vol] 0.04 10*3/uL [facility] Basophils/100 WBC (Bld) 0.7 % [facility] Differential cell count method Nom (Bld) Auto [facility] Eosinophils (Bld) [#/Vol] 0.53 10*3/uL High [facility] Eosinophils/100 WBC (Bld) 8.8 % [facility] Erythrocyte distribution width (RBC) [Ratio] 13.6 % 11.5 - 15.0 % [facility] Hematocrit (Bld) [Volume fraction] 35.4 % Low 36.0 - 46.0 % [facility] Hemoglobin (Bld) [Mass/Vol] 11.6 g/dL 11.5 - 15.5 g/dL [facility] Immature granulocytes (Bld) [#/Vol] [facility] Immature granulocytes/100 WBC (Bld) 0.2 % [facility] Interpretation and review of laboratory results Abnormal [facility] Lymphocytes (Bld) [#/Vol] 0.80 10*3/uL Low [facility] Lymphocytes/100 WBC (Bld) 13.2 % [facility] MCH (RBC) [Entitic mass] 31.6 pg 26.0 - 34.0 pg [facility] MCHC (RBC) [Mass/Vol] 32.8 g/dL 30.5 - 36.0 g/dL [facility] MCV (RBC) [Entitic vol] 96.5 fL 80.0 - 100.0 fL [facility] Monocytes (Bld) [#/Vol] 0.29 10*3/uL [facility] Monocytes/100 WBC (Bld) 4.8 % [facility] Neutrophils (Bld) [#/Vol] 4.37 10*3/uL [facility] Neutrophils/100 WBC (Bld) 72.3 % [facility] Nucleated RBC (Bld) [#/Vol] NINF [facility] Nucleated RBC/100 WBC (Bld) [Ratio] 0.0 % /100 WBC [facility] Platelet mean volume (Bld) [Entitic vol] 8.8 fL Low 9.0 - 12.7 fL [facility] Platelets (Bld) [#/Vol] 368 10*3/uL [facility] RBC (Bld) [#/Vol] 3.67 10*6/uL Low 3.90 - 5.20 m/uL [facility] WBC (Bld) [#/Vol] 6.04 10*3/uL [facility] Basophils (Bld) [#/Vol] 0.04 10*3/uL Normal <0.11 [facility] Comment on above: Order Comment: Speci men Type: BLOOD SPECIMENOrdering Facility: [facility] Address: [address] [place] [address] Performed By: #### 5 7021-8 ####[facility] LABIA [id number] [place] [address] Basophils/100 WBC (Bld) 0.7 % Normal [facility] Comment on above: Order Comment: Speci men Type: BLOOD SPECIMENOrdering Facility: [facility] Address: [address] [place] [address] Performed By: #### 5 7021-8 ####[facility] [id number] [place] [address] Differential cell count method Nom (Bld) Auto Normal [facility] Comment on above: Order Comment: Speci men Type: BLOOD SPECIMENOrdering Facility: [facility] Address: [address] [place] [address] Performed By: #### 5 7021-8 ####[facility] [id number] [place] [address] Eosinophils (Bld) [#/Vol] 0.53 10*3/uL High <0.46 [facility] Comment on above: Order Comment: Speci men Type: BLOOD SPECIMENOrdering Facility: [facility] Address: [address] [place] [address] Performed By: #### 5 7021-8 ####[facility] [id number] [place] [address] Eosinophils/100 WBC (Bld) 8.8 % Normal [facility] Comment on above: Order Comment: Speci men Type: BLOOD SPECIMENOrdering Facility: [facility] Address: [address] [place] [address] Performed By: #### 5 7021-8 ####[facility] [id number] [place] [address] Erythrocyte distribution width (RBC) [Ratio] 13.6 % Normal 11.5-15.0 [facility] Comment on above: Order Comment: Speci men Type: BLOOD SPECIMENOrdering Facility: [facility] Address: [address] [place] [address] Performed By: #### 5 7021-8 ####[facility] [id number] [place] [address] Hematocrit (Bld) [Volume fraction] 35.4 % Low 36.0-46.0 [facility] Comment on above: Order Comment: Speci men Type: BLOOD SPECIMENOrdering Facility: [facility] Address: [address] [place] [address] Performed By: #### 5 7021-8 ####[facility] [id number] [place] [address] Hemoglobin (Bld) [Mass/Vol] 11.6 g/dL Normal 11.5-15.5 [facility] Comment on above: Order Comment: Speci men Type: BLOOD SPECIMENOrdering Facility: [facility] Address: [address] [place] [address] Performed By: #### 5 7021-8 ####[facility] [id number] [place] [address] Immature granulocytes (Bld) [#/Vol] 10*3/uL Normal <0.10 [facility] Comment on above: Order Comment: Speci men Type: BLOOD SPECIMENOrdering Facility: [facility] Address: [address] [place] [address] Performed By: #### 5 7021-8 ####[facility] [id number] [place] [address] Immature granulocytes/100 WBC (Bld) 0.2 % Normal [facility] Comment on above: Order Comment: Speci men Type: BLOOD SPECIMENOrdering Facility: [facility] Address: [address] [place] [address] Performed By: #### 5 7021-8 ####[facility] [id number] [place] [address] Lymphocytes (Bld) [#/Vol] 0.80 10*3/uL Low 1.00-4.00 [facility] Comment on above: Order Comment: Speci men Type: BLOOD SPECIMENOrdering Facility: [facility] Address: [address] [place] [address] Performed By: #### 5 7021-8 ####[facility] [id number] [place] [address] Lymphocytes/100 WBC (Bld) 13.2 % Normal [facility] Comment on above: Order Comment: Speci men Type: BLOOD SPECIMENOrdering Facility: [facility] Address: [address] [place] [address] Performed By: #### 5 7021-8 ####[facility] [id number] [place] [address] MCH (RBC) [Entitic mass] 31.6 pg Normal 26.0-34.0 [facility] Comment on above: Order Comment: Speci men Type: BLOOD SPECIMENOrdering Facility: [facility] Address: [address] [place] [address] Performed By: #### 5 7021-8 ####[facility] [id number] [place] [address] MCHC (RBC) [Mass/Vol] 32.8 g/dL Normal 30.5-36.0 [facility] Comment on above: Order Comment: Speci men Type: BLOOD SPECIMENOrdering Facility: [facility] Address: [address] [place] [address] Performed By: #### 5 7021-8 ####[facility] [id number] [place] [address] MCV (RBC) [Entitic vol] 96.5 fL Normal 80.0-100.0 [facility] Comment on above: Order Comment: Speci men Type: BLOOD SPECIMENOrdering Facility: [facility] Address: [address] [place] [address] Performed By: #### 5 7021-8 ####[facility] [id number] [place] [address] Monocytes (Bld) [#/Vol] 0.29 10*3/uL Normal <0.87 [facility] Comment on above: Order Comment: Speci men Type: BLOOD SPECIMENOrdering Facility: [facility] Address: [address] [place] [address] Performed By: #### 5 7021-8 ####[facility] [id number] [place] [address] Monocytes/100 WBC (Bld) 4.8 % Normal [facility] Comment on above: Order Comment: Speci men Type: BLOOD SPECIMENOrdering Facility: [facility] Address: [address] [place] [address] Performed By: #### 5 7021-8 ####[facility] [id number] [place] [address] Neutrophils (Bld) [#/Vol] 4.37 10*3/uL Normal 1.45-7.50 [facility] Comment on above: Order Comment: Speci men Type: BLOOD SPECIMENOrdering Facility: [facility] Address: [address] [place] [address] Performed By: #### 5 7021-8 ####[facility] [id number] [place] [address] Neutrophils/100 WBC (Bld) 72.3 % Normal [facility] Comment on above: Order Comment: Speci men Type: BLOOD SPECIMENOrdering Facility: [facility] Address: [address] [place] [address] Performed By: #### 5 7021-8 ####[facility]CL[facility] [id number] [place] [address] Nucleated RBC (Bld) [#/Vol] 10*3/uL Normal <0.01 [facility] Comment on above: Order Comment: Speci men Type: BLOOD SPECIMENOrdering Facility: [facility] Address: [address] [place] [address] Performed By: #### 5 7021-8 ####[facility]CL[facility] [id number] [place] [address] Nucleated RBC/100 WBC (Bld) [Ratio] 0.0 /100 WBC Normal [facility] Comment on above: Order Comment: Speci men Type: BLOOD SPECIMENOrdering Facility: [facility] Address: [address] [place] [address] Performed By: #### 5 7021-8 ####[facility] LABIA [id number] [place] [address] Platelet mean volume (Bld) [Entitic vol] 8.8 fL Low 9.0-12.7 [facility] Comment on above: Order Comment: Speci men Type: BLOOD SPECIMENOrdering Facility: [facility] Address: [address] [place] [address] Performed By: #### 5 7021-8 ####[facility]CL[facility] [id number] [place] [address] Platelets (Bld) [#/Vol] 368 10*3/uL Normal 150-400 [facility] Comment on above: Order Comment: Speci men Type: BLOOD SPECIMENOrdering Facility: [facility] Address: [address] [place] [address] Performed By: #### 5 7021-8 ####[facility]CL[facility] [id number] [place] [address] RBC (Bld) [#/Vol] 3.67 10*6/uL Low 3.90-5.20 [facility] Comment on above: Order Comment: Speci men Type: BLOOD SPECIMENOrdering Facility: [facility] Address: [address] [place] [address] Performed By: #### 5 7021-8 ####[facility]CL[facility] [id number] [place] [address] WBC (Bld) [#/Vol] 6.04 10*3/uL Normal 3.70-11.00 [facility] Comment on above: Order Comment: Speci men Type: BLOOD SPECIMENOrdering Facility: [facility] Address: [address] [place] [address] Performed By: #### 5 7021-8 ####[facility] [id number] [place] [address] Comprehensive metabolic 2000 panelon 09-11-2024 Albumin [Mass/Vol] 3.9 g/dL Normal 3.9-4.9 [facility] Comment on above: Order Comment: Speci men Type: BLOOD SPECIMENOrdering Facility: [facility] Address: [address] [place] [address] Performed By: #### 2 4323-8 ####[facility] LABCLIA [id number] [place] [id number] [place] ALP [Catalytic activity/Vol] 94 U/L Normal 34-123 [facility] Comment on above: Order Comment: Speci men Type: BLOOD SPECIMENOrdering Facility: [facility] Address: [address] [place] [address] Performed By: #### 2 4323-8 ####[facility] LABCLIA [id number] [place] [address] [place] ALT [Catalytic activity/Vol] 15 U/L Normal 7-38 [facility] Comment on above: Order Comment: Speci men Type: BLOOD SPECIMENOrdering Facility: [facility] Address: [address] [place] [address] Performed By: #### 2 4323-8 ####[facility] LABCLIA [id number] [place] [address] [place] Anion gap [Moles/Vol] 16 mmol/L High 8-15 [facility] Comment on above: Order Comment: Speci men Type: BLOOD SPECIMENOrdering Facility: [facility] Address: [address] [place] [address] Performed By: #### 2 4323-8 ####[facility] LABCLIA [id number] [place] [address] [place] AST [Catalytic activity/Vol] 22 U/L Normal 13-35 [facility] Comment on above: Order Comment: Speci men Type: BLOOD SPECIMENOrdering Facility: [facility] Address: [address] [place] [address] Performed By: #### 2 4323-8 ####[facility] LABCLIA [id number] [place] [address] [place] Bilirubin [Mass/Vol] 0.5 mg/dL Normal 0.2-1.3 [facility] Comment on above: Order Comment: Speci men Type: BLOOD SPECIMENOrdering Facility: [facility] Address: [address] [place] [id number] Performed By: #### 2 4323-8 ####[facility] LABCLIA [id number] [address] [address] [place] Calcium [Mass/Vol] 9.3 mg/dL Normal 8.5-10.2 [facility] Comment on above: Order Comment: Speci men Type: BLOOD SPECIMENOrdering Facility: [facility] Address: [address] [place], [place] [address] Performed By: #### 2 4323-8 ####[facility] LABCLIA [id number] [place] [address] [place] Chloride [Moles/Vol] 102 mmol/L Normal 98-107 [facility] Comment on above: Order Comment: Speci men Type: BLOOD SPECIMENOrdering Facility: [facility] Address: [address] [place] [address] Performed By: #### 2 4323-8 ####[facility] LABCLIA [id number] [place] [address] [place] CO2 [Moles/Vol] 22 mmol/L Normal 22-30 [facility] Comment on above: Order Comment: Speci men Type: BLOOD SPECIMENOrdering Facility: [facility] Address: [address] [place], [place] [address] Performed By: #### 2 4323-8 ####[facility] LABCLIA [id number] [place] [address] [place] Creatinine [Mass/Vol] 1.74 mg/dL High 0.58-0.96 [facility] Comment on above: Order Comment: Speci men Type: BLOOD SPECIMENOrdering Facility: [facility] Address: [address] [place], [place] [address] Performed By: #### 2 4323-8 ####[facility] LABCLIA [id number] [place] [address] [place] Creatinine and Glomerular filtration rate.predicted panel (S/P/Bld) 31 mL/min/1.73m??? Low >=60 [facility] Comment on above: Order Comment: Alison mccain Type: BLOOD SPECIMENOrdering Facility: [facility] Address: [address] [place] [address] Result Comment: Cristal mated Glomerular Filtration Rate [...] actual GFR. Performed By: #### 2 4323-8 ####[facility] LABCLIA [id number] [place] [address] [place] Glucose [Mass/Vol] 173 mg/dL High 74-99 [facility] Comment on above: Order Comment: Alison mccain Type: BLOOD SPECIMENOrdering Facility: [facility] Address: [address] [place] [address] Result Comment: The [place] [employer] (ADA) provides guidance for cutoff [...] Standards of Medical Care in Diabetes 2016, [place] [employer]. Diabetes Care. 2016.39(Suppl 1). Performed By: #### 2 4323-8 ####[facility] LABCLIA [id number] [place] [address] [place] Potassium [Moles/Vol] 4.8 mmol/L Normal 3.7-5.1 [facility] Comment on above: Order Comment: Speci men Type: BLOOD SPECIMENOrdering Facility: [facility] Address: [address] [place] [address] Performed By: #### 2 4323-8 ####[facility] LABCLIA [id number] [place] [address] [place] Protein [Mass/Vol] 6.7 g/dL Normal 6.3-8.0 [facility] Comment on above: Order Comment: Speci men Type: BLOOD SPECIMENOrdering Facility: [facility] Address: [address] [place] [address] Result Comment: Resu lt rechecked. Performed By: #### 2 4323-8 ####[facility] LABCLIA [id number] [place] [address] [place] Sodium [Moles/Vol] 140 mmol/L Normal 136-144 [facility] Comment on above: Order Comment: Speci men Type: BLOOD SPECIMENOrdering Facility: [facility] Address: [address] [place] [address] Performed By: #### 2 4323-8 ####[facility] LABCLIA [id number] [place] [address] [place] Urea nitrogen [Mass/Vol] 25 mg/dL High 7-21 [facility] Comment on above: Order Comment: Speci men Type: BLOOD SPECIMENOrdering Facility: [facility] Address: [address] [place] [address] Performed By: #### 2 4323-8 ####[facility] LABCLIA [id number] [place] [address] [place] CNCOon 09-09-2024 CNCO Letter Text Normal [facility] CNPNon 09-02-2024 CNPN Normal [facility] BRIEF OP NOTon 09-01-2024 BRIEF OP NOT HNO ID: [id number] Author: RADHA CABRERA MD Service: Radiology Author Type: Physician Type: Brief Op Note Filed: 09/01/2024 12:58 Note Text: BRIEF OPERATIVE / PROCEDURE NOTE LOG ID: [id number] SURGERY/PROCEDURE DATE: 09/01/2024 INCISION/PROCEDURE START TIME: 12:47 PM INCISION CLOSE/PROCEDURE END TIME: 12:54 PM SURGEON(S)/PROCEDURALIST(S ) AND DIESEL TRUCK TECHNICIAN(S): Surgeons and Role: * Radha Cabrera MD - Primary No Additional Staff SURGERY/PROCEDURE(S): US GUIDED FNA RIGHT MID THYROID NODULE ANESTHESIA: Local FINDINGS: 6 PASSES WITH 25 G NEEDLE INTO LESION UNDER US GUIDANCE, 3 PASSES INTO CYTOLITE AND 3 INTO AFIRMA. NO HEMATOMA. ESTIMATED BLOOD LOSS: 2 mls SPECIMENS: CYTOPATHOLOGY COMPLICATIONS: None PRE-OP/PRE-PROCEDURE DIAGNOSIS: SOLID THYROID NODULE, BREAST CANCER POST-OP/POST-PROCEDURE DIAGNOSIS: Same as Preop SIGNATURE: Radha Cabrera MD PATIENT NAME: Minal Caputo DATE: September 01, 2024 TIME: 12:57 PM [facility] CNCNPATEDon 09-01-2024 CNCNPATED [facility] CYTOLOGY NON-GYNon CASE REPORT [facility] Comment on above: Order Comment: Speci men Type: SPECIMEN OBTAINED BY ASPIRATION [facility] Address: [address] [place] [address] Result Comment: [facility] Cytology Report Case: [id number] Authorizing Provider: Radha Cabrera MD Collected: 09/01/2024 12:49 PM Ordering Location: [facility] Received: 09/01/2024 05:30 PM RADIOLOGY Pathologist: Cash Adler MD Specimen: Thyroid, Right, Lobe, 3.6 RT MID THYROID NODULE Performed By: #### C YTONON #### [facility] CLIA [id number] [address] [place] [address] [place] CLINICAL HISTORY Afirma received Normal [facility] Comment on above: Order Comment: Speci men Type: SPECIMEN OBTAINED BY ASPIRATION [facility] Address: [address] [place] [address] Result Comment: Pre-op diagnosis: Multiple thyroid nodules [E04.2] Performed By: #### C YTONON #### [facility] CLIA [id number] [address] [place] [address] FINAL DIAGNOSIS Normal [facility] Comment on above: Order Comment: Speci men Type: SPECIMEN OBTAINED BY ASPIRATION Ordering Facility: [facility] Address: [address] [place] [address] Result Comment: A - Thyroid, Right, Lobe, FNA - 3.6 RT MID THYROID NODULE Benign. Follicular cells and cyst contents. The following cell blocks were associated with this case: A1 Cell Block, Alcohol Fixed Performed By: #### C YTONON #### [facility] CLIA [id number] [address] [place] [address] FINAL PERFORMING LAB Normal [facility] Comment on above: Order Comment: Speci men Type: SPECIMEN OBTAINED BY ASPIRATION Ordering Facility: [facility] Address: [address] [place] [address] Result Comment: Tech nical component, rod and tube straightener screening performed at [facility], [address] [place] [address] CLIA# [id number] Diagnostic interpretation performed at [facility], [address] [place] [address] CLIA# [id number] Housetrailer Servicer: Jaleel Garza M.D. Performed By: #### C YTONON #### [facility] CLIA [id number] [address] [place] [address] GROSS DESCRIPTION Normal [facility] Comment on above: Order Comment: Speci men Type: SPECIMEN OBTAINED BY ASPIRATION Ordering Facility: [facility] Address: [address] [place] [address] Result Comment: A. T hyroid, Right, Lobe 30 cc cloudy red CytoLyt with particles. ThinPrep and Cell Block prepared. Afirma received Performed By: #### C YTONON #### [facility] CLIA [id number] [address] [place] [address] ORDER COMMENT Normal [facility] Comment on above: Order Comment: Speci men Type: SPECIMEN OBTAINED BY ASPIRATION Ordering Facility: [facility] Address: [address] [place] [address] Result Comment: Pre- op diagnosis: Multiple thyroid nodules [E04.2] Performed By: #### C KYLERONON #### [facility] CLIA [id number] OF [facility] HISTORY PHYSICALon HISTORY PHYSICAL HNO ID: [id number] Author: RADHA CABRERA MD Service: Radiology Author Type: Physician Type: H&P Filed: 09/01/2024 12:39 Note Text: LOCAL PROCEDURE HISTORY AND PHYSICAL EXAM SERVICE DATE: 09/01/2024 SERVICE TIME: 12:37 PM Provisional Diagnosis/Treatment Plan: us guided fna right mid thyroid nodule Subjective HPI: This is a 68 year old female who presents with solid right thyroid nodule. MEDICATIONS: Prior to Admission medications as of 09/01/24 1129 Medication Sig Last Dose Taking anastrozole (ARIMIDEX) 1 mg tablet TAKE 1 TABLET BY MOUTH EVERY DAY Ribociclib 400 mg/day (200 mg X 2) tablets (KISQALI) Take 2 tablets (400 mg) by mouth once daily for 21 days. Then take a 7-day rest period to complete a 28-day treatment cycle. Discard after 60 days from fill date. prednisoLONE acetate (PRED FORTE) 1 % ophthalmic suspension Use 1 Drop in the right eye as directed. Starting TOMORROW place one drop in operative eye four times a day. prednisoLONE acetate (PRED FORTE) 1 % ophthalmic suspension Use 1 Drop in the left eye as directed. Starting TOMORROW place one drop in operative eye four times a day. NAPROXEN ORAL Take by mouth two times a day. cholecalciferol (VITAMIN D-3) 5,000 unit tab Take 5,000 Units by mouth once daily. spironolactone (ALDACTONE) 25 mg tablet Take 1 tablet by mouth every afternoon. atorvastatin (LIPITOR) 20 mg tablet Take 1 tablet by mouth once daily. Patient taking differently: Take 40 mg by mouth once daily. losartan (COZAAR) 50 [...] mg by mouth two times a day. ALLERGIES Allergen Reactions Fentanyl Intolerance Drop in RR and drop in pulse ox to 70% Adhesive Tape-Silic* Rash Sulfa (Sulfonamide * Unknown Objective PHYSICAL EXAM: The remainder of the physical exam is noncontributory. GENERAL: Alert, no distress, cooperative, Morbidly Obese LUNGS: Lungs clear to auscultation, Good diaphragmatic excursion CARDIAC: RRR, murmur LMP 08/26/2006 (Approximate) PAIN ASSESSMENT: Negative for pain, history of chronic pain, or current treatment for a chronic pain condition. Assessment/Plan Active Problems: * No active hospital problems. * Resolved Problems: * No resolved hospital problems. * Morbid Obesity Class 3 Medication and Non-Pharmacologic VTE Prophylaxis/Anticoagulants VTE Prophylaxis: n/a SIGNATURE: Radha Cabrera MD PATIENT NAME: Minal Caputo DATE: September 01, 2024 TIME: 12:37 PM [facility] US FINE NEEDLE ASPIRATIONon 09-01-2024 US FINE NEEDLE ASPIRATION * * *Final Report* * * DATE OF EXAM: Sep 01 2024 1:08PM [facility] 1249 - US FINE NEEDLE ASPIRATION / PROCEDURE REASON: multiple thyroid nodules * * * * Physician Interpretation * * * * PROCEDURE: IMAGE GUIDED THYROID NODULE BIOPSY Procedural Personnel Attending physician(s): Radha Cabrera M.D. Fellow physician(s): None Resident physician(s): None Advanced practice provider(s): None Medical Student(s): None Pre-procedure diagnosis: Solid thyroid nodule Post-procedure diagnosis: Same Indication: Histopathologic diagnosis Previous biopsy of same target (QCDR): Yes- repeat biopsy due to sample inadequacy from prior biopsy at this institution Additional clinical history: History of breast cancer PROCEDURE SUMMARY: - Percutaneous ultrasound guided fine needle aspiration biopsy - Additional procedure(s): None PROCEDURE DETAILS: Pre-procedure Consent: Consent obtained with the patient as documented. Medication reconciliation: Done Swathi-procedure discussion: The appropriate elements of the pre-procedure discussion, safety check list and sign-out were performed. Time out was completed before start of procedure. Preparation: The site was prepared and draped using maximal sterile barrier technique including cutaneous antisepsis. Contrast: Contrast agent: Contrast volume (mL): Image Guidance: Sonographic guidance with digital image storage Radiation/Dose: CT Radiation dose: Integrated Dose-length product (DLP) for this visit = mGy*cm. CT Dose Reduction Employed: Anesthesia/Sedation: Level of anesthesia/sedation: No sedation Anesthesia/sedation administered by: Not applicable Total intra-service sedation time (minutes): Local anesthesia: 2 % lidocaine Meds: Additional med: None Additional med: None Start of procedure: 12:47 End of procedure: 12:54 TECHNIQUE Patient position: Supine Imaging prior to biopsy Initial imaging was performed. Biopsy target: - Maximal diameter (cm): 2 - Location: RIGHT mid thyroid Other findings: None Biopsy Local anesthesia was administered. Under US guidance, the biopsy needle was advanced to the target and biopsy was performed. Coaxial needle: Core needle biopsy device: Core needle size: Number of core specimens: Fine needle aspiration device: 3 cc syringe Fine needle size: 25 gauge Number of FNA specimens: 6, 3 in Cytolite and 3 in Afirma On-site biopsy touch preparation: Additional sampling recommendations: None Preliminary assessment of sample adequacy: Needle removal The biopsy needle was removed and a sterile dressing was applied. Tract embolization: None Imaging following biopsy Immediate post-biopsy imaging was performed. Post-biopsy imaging findings: No hematoma Additional Details Specimens removed: Biopsy samples as detailed above Estimated blood loss (mL): Less than 10 Standardized report: [id number] COMPLICATIONS: No immediate complications CONCLUSION: The patient was comfortable and was discharged home in stable condition. The procedure was performed by the: attending radiologist, without an client account assistant. The attending radiologist performed the following procedural activities: Entire procedure IMPRESSION: Image-guided fine-needle aspiration of RIGHT mid thyroid nodule. Plan: Specimen(s) sent for evaluation. ATTESTATION: Signer name: Radha Cabrera I attest that I was present for the entire procedure. I reviewed the stored images and agree with the report as written. Cryptographic Clerk: PSCAlem Transcribe Date/Time: Sep 01 2024 1:09P Dictated by : RADHA CABRERA MD This examination was interpreted and the report reviewed and electronically signed by: RADHA CARBERA MD on Sep 01 2024 1:11PM EST [id number] Normal [facility] CNOVon 08-12-2024 CNOV Normal [facility] CNPNon 07-20-2024 CNPN Normal [facility] CNNURSEon 07-17-2024 CNNURSE Normal [facility] CNOVSPon 07-16-2024 CNOVSP Normal [facility] CNOVon 07-15-2024 CNOV Normal [facility] CYTOLOGY NON-GYNon CASE REPORT Normal [facility] Comment on above: Order Comment: Speci men Type: SPECIMEN OBTAINED BY ASPIRATIONOrdering Facility: [facility] Address: [address] [place] [address] Result Comment: [facility] Cytology Report Case: [id number] Provider: Sandy Mcgregor MD, PhD Collected: 07/15/2024 02:32 PMOrdering Location: Endocrinology Received: 07/15/2024 03:30 PMPathologist: Torri Nunez MDSpecimen: Thyroid, Right, Lobe, Mid Performed By: #### C YTONON ####[facility] LABIA [id number] [place] [address] [place] CLINICAL HISTORY Thyroid Nodules Normal [facility] Comment on above: Order Comment: Speci men Type: SPECIMEN OBTAINED BY ASPIRATIONOrdering Facility: [facility] Address: [address] [place] [address] Result Comment: Destiny aburto sample received Performed By: #### C YTONON ####[facility] LABCLIA [id number] [place] [address] [place] FINAL DIAGNOSIS Normal [facility] Comment on above: Order Comment: Speci men Type: SPECIMEN OBTAINED BY ASPIRATIONOrdering Facility: [facility] Address: [address] [place] [address] Result Comment: A - Thyroid, Right Lobe, Fine Needle Aspirate - Mid Non-diagnostic aspirate sample. Insufficient thyroid follicular epithelial cells present for evaluation.The following cell blocks were associated with this case:A1 Cell Block, Alcohol Fixed Performed By: #### C YTONON ####[facility] LABCLIA [id number] [place] [address] [place] FINAL PERFORMING LAB Normal [facility] Comment on above: Order Comment: Speci men Type: SPECIMEN OBTAINED BY ASPIRATIONOrdering Facility: [facility] Address: [address] [place] [address] Result Comment: Tech nical component, rod and tube straightener screening performed at [facility], [address] [place] [address] CLIA# [id number] interpretation performed at [facility], [address] [place] [address] CLIA# [id number] Director: Amor Eisenberg M.D. Performed By: #### C YTONON ####[facility] LABIA [id number] [address] STATES OF [facility] GROSS DESCRIPTION Normal [facility] Comment on above: Order Comment: Speci men Type: SPECIMEN OBTAINED BY ASPIRATIONOrdering Facility: [facility] Address: [address] [place] [address] Result Comment: A. T hyroid, Right, Lobe30 cc hazy pink fluid with particles. ThinPrep and Cell Block prepared and 2 smears. Afirma sample received Performed By: #### C YTONON ####[facility] LABCLIA [id number] [address] [place] FNA BIOPSYon 07-15-2024 Sandy Mcgregor MD , [...] the patient. Informed Consent Consent Obtained: Written [place] Protocol A moment to CARE was completed. [...] are available. Follow up with referring physician. [facility] US THYROID FNA (POC) ENDO US E ONLYon 07-15-2024 [facility] Basic metabolic 2000 panelon 07-14-2024 Anion gap [Moles/Vol] 15 mmol/L Normal 8-15 [facility] Comment on above: Order Comment: Speci men Type: BLOOD SPECIMENOrdering Facility: [facility] Address: [address] [place] [address] Performed By: #### 2 4321-2 ####[facility] LABCLIA [id number] [facility] [id number] [address] [place] Calcium [Mass/Vol] 9.8 mg/dL Normal 8.5-10.2 [facility] Comment on above: Order Comment: Speci men Type: BLOOD SPECIMENOrdering Facility: [facility] Address: [address] [place] [address] Performed By: #### 2 4321-2 ####[facility] LABCLIA [id number] [place] [address] [place] Chloride [Moles/Vol] 103 mmol/L Normal 98-107 [facility] Comment on above: Order Comment: Speci men Type: BLOOD SPECIMENOrdering Facility: [facility] Address: [address] [place] [address] Performed By: #### 2 4321-2 ####[facility] LABCLIA [id number] [place] [address] [place] CO2 [Moles/Vol] 23 mmol/L Normal 22-30 [facility] Comment on above: Order Comment: Speci men Type: BLOOD SPECIMENOrdering Facility: [facility] Address: [address] [place] [address] Performed By: #### 2 4321-2 ####[facility] LABIA [id number] [place] [address] [place] Creatinine [Mass/Vol] 1.72 mg/dL High 0.58-0.96 [facility] Comment on above: Order Comment: Speci men Type: BLOOD SPECIMENOrdering Facility: [facility] Address: [address] [place] [address] Performed By: #### 2 4321-2 ####[facility] LABCLIA [id number] [place] [address] [place] Creatinine and Glomerular filtration rate.predicted panel (S/P/Bld) 32 mL/min/1.73m??? Low >=60 [facility] Comment on above: Order Comment: Speci men Type: BLOOD SPECIMENOrdering Facility: [facility] Address: [address] [place] [address] Result Comment: Cristal mated Glomerular Filtration Rate [...] actual GFR. Performed By: #### 2 4321-2 ####[facility] LABCLIA [id number] [place] [address] [place] Glucose [Mass/Vol] 149 mg/dL High 74-99 [facility] Comment on above: Order Comment: Alison mccain Type: BLOOD SPECIMENOrdering Facility: [facility] Address: [address] [place] [address] Result Comment: The [place] [employer] (ADA) provides guidance for cutoff [...] Standards of Medical Care in Diabetes 2016, [place] [employer]. Diabetes Care. 2016.39(Suppl 1). Performed By: #### 2 4321-2 ####[facility] LABCLIA [id number] [place] [id number] [place] Potassium [Moles/Vol] 4.5 mmol/L Normal 3.7-5.1 [facility] Comment on above: Order Comment: Alison mccain Type: BLOOD SPECIMENOrdering Facility: [facility] Address: [address] [place] [address] Performed By: #### 2 4321-2 ####[facility] LABCLIA [id number] [address] [address] [place] Sodium [Moles/Vol] 141 mmol/L Normal 136-144 [facility] Comment on above: Order Comment: Speci men Type: BLOOD SPECIMENOrdering Facility: [facility] Address: [address] [place] [address] Performed By: #### 2 4321-2 ####[facility] LABCLIA [id number] [place] [address] [place] Urea nitrogen [Mass/Vol] 20 mg/dL Normal 7-21 [facility] Comment on above: Order Comment: Speci men Type: BLOOD SPECIMENOrdering Facility: [facility] Address: [address] [place] [address] Performed By: #### 2 4321-2 ####[facility] LABCLIA [id number] [place] [address] [place] CBC W Auto Differential pane l (Bld)on 07-06-2024 Basophils (Bld) [#/Vol] 0.03 10*3/uL [facility] Basophils/100 WBC (Bld) 0.5 % [facility] Differential cell count method Nom (Bld) Auto [facility] Eosinophils (Bld) [#/Vol] 0.38 10*3/uL [facility] Eosinophils/100 WBC (Bld) 6.9 % [facility] Erythrocyte distribution width (RBC) [Ratio] 15.8 % High 11.5 - 15.0 % [facility] Hematocrit (Bld) [Volume fraction] 33.9 % Low 36.0 - 46.0 % [facility] Hemoglobin (Bld) [Mass/Vol] 11.4 g/dL Low 11.5 - 15.5 g/dL [facility] Immature granulocytes (Bld) [#/Vol] 0.03 10*3/uL [facility] Immature granulocytes/100 WBC (Bld) 0.5 % [facility] Interpretation and review of laboratory results Abnormal [facility] Lymphocytes (Bld) [#/Vol] 0.94 10*3/uL Low [facility] Lymphocytes/100 WBC (Bld) 17.1 % [facility] MCH (RBC) [Entitic mass] 32.8 pg 26.0 - 34.0 pg [facility] MCHC (RBC) [Mass/Vol] 33.6 g/dL 30.5 - 36.0 g/dL [facility] MCV (RBC) [Entitic vol] 97.4 fL 80.0 - 100.0 fL [facility] Monocytes (Bld) [#/Vol] 0.25 10*3/uL [facility] Monocytes/100 WBC (Bld) 4.5 % [facility] Neutrophils (Bld) [#/Vol] 3.87 10*3/uL [facility] Neutrophils/100 WBC (Bld) 70.5 % [facility] Nucleated RBC (Bld) [#/Vol] NINF [facility] Nucleated RBC/100 WBC (Bld) [Ratio] 0.0 % /100 WBC [facility] Platelet mean volume (Bld) [Entitic vol] 8.9 fL Low 9.0 - 12.7 fL [facility] Platelets (Bld) [#/Vol] 255 10*3/uL [facility] RBC (Bld) [#/Vol] 3.48 10*6/uL Low 3.90 - 5.20 m/uL [facility] WBC (Bld) [#/Vol] 5.50 10*3/uL [facility] Basophils (Bld) [#/Vol] 0.03 10*3/uL Normal <0.11 [facility] Comment on above: Order Comment: Speci men Type: BLOOD SPECIMENOrdering Facility: [facility] Address: [address] [place] [address] Performed By: #### 5 7021-8 ####[facility] LABCLIA [id number] [place] [id number] Basophils/100 WBC (Bld) 0.5 % Normal [facility] Comment on above: Order Comment: Speci men Type: BLOOD SPECIMENOrdering Facility: [facility] Address: [address] [place] [address] Performed By: #### 5 7021-8 ####[facility] LABCLIA [id number] [place] [address] Differential cell count method Nom (Bld) Auto Normal [facility] Comment on above: Order Comment: Speci men Type: BLOOD SPECIMENOrdering Facility: [facility] Address: [address] [place] [address] Performed By: #### 5 7021-8 ####[facility] LABCLIA [id number] [place] [address] Eosinophils (Bld) [#/Vol] 0.38 10*3/uL Normal <0.46 [facility] Comment on above: Order Comment: Speci men Type: BLOOD SPECIMENOrdering Facility: [facility] Address: [address] [place] [address] Performed By: #### 5 7021-8 ####[facility] LABCLIA [id number] [place] [address] Eosinophils/100 WBC (Bld) 6.9 % Normal [facility] Comment on above: Order Comment: Speci men Type: BLOOD SPECIMENOrdering Facility: [facility] Address: [address] [place] [address] Performed By: #### 5 7021-8 ####[facility] LABCLIA [id number] [place] [address] Erythrocyte distribution width (RBC) [Ratio] 15.8 % High 11.5-15.0 [facility] Comment on above: Order Comment: Speci men Type: BLOOD SPECIMENOrdering Facility: [facility] Address: [address] [place] [address] Performed By: #### 5 7021-8 ####[facility] LABCLIA [id number] [place] [address] Hematocrit (Bld) [Volume fraction] 33.9 % Low 36.0-46.0 [facility] Comment on above: Order Comment: Speci men Type: BLOOD SPECIMENOrdering Facility: [facility] Address: [address] [place] [address] Performed By: #### 5 7021-8 ####[facility] LABCLIA [id number] [place] [address] Hemoglobin (Bld) [Mass/Vol] 11.4 g/dL Low 11.5-15.5 [facility] Comment on above: Order Comment: Speci men Type: BLOOD SPECIMENOrdering Facility: [facility] Address: [address] [place] [address] Performed By: #### 5 7021-8 ####[facility] LABCLIA [id number] [place] [address] Immature granulocytes (Bld) [#/Vol] 0.03 10*3/uL Normal <0.10 [facility] Comment on above: Order Comment: Speci men Type: BLOOD SPECIMENOrdering Facility: [facility] Address: [address] [place] [address] Performed By: #### 5 7021-8 ####[facility] LABCLIA [id number] [place] [address] Immature granulocytes/100 WBC (Bld) 0.5 % Normal [facility] Comment on above: Order Comment: Speci men Type: BLOOD SPECIMENOrdering Facility: [facility] Address: [address] [place] [address] Performed By: #### 5 7021-8 ####[facility] LABCLIA [id number] [place] [address] Lymphocytes (Bld) [#/Vol] 0.94 10*3/uL Low 1.00-4.00 [facility] Comment on above: Order Comment: Speci men Type: BLOOD SPECIMENOrdering Facility: [facility] Address: [address] [place] [address] Performed By: #### 5 7021-8 ####[facility] LABCLIA [id number] [place] [address] Lymphocytes/100 WBC (Bld) 17.1 % Normal [facility] Comment on above: Order Comment: Speci men Type: BLOOD SPECIMENOrdering Facility: [facility] Address: [address] [place] [address] Performed By: #### 5 7021-8 ####[facility] LABCLIA [id number] [place] [address] MCH (RBC) [Entitic mass] 32.8 pg Normal 26.0-34.0 [facility] Comment on above: Order Comment: Speci men Type: BLOOD SPECIMENOrdering Facility: [facility] Address: [address] [place] [address] Performed By: #### 5 7021-8 ####[facility] LABCLIA [id number] [place] [address] MCHC (RBC) [Mass/Vol] 33.6 g/dL Normal 30.5-36.0 [facility] Comment on above: Order Comment: Speci men Type: BLOOD SPECIMENOrdering Facility: [facility] Address: [address] [place] [address] Performed By: #### 5 7021-8 ####[facility] LABIA [id number] [place] [address] MCV (RBC) [Entitic vol] 97.4 fL Normal 80.0-100.0 [facility] Comment on above: Order Comment: Speci men Type: BLOOD SPECIMENOrdering Facility: [facility] Address: [address] [place] [address] Performed By: #### 5 7021-8 ####[facility] LABCLIA [id number] [place] [address] Monocytes (Bld) [#/Vol] 0.25 10*3/uL Normal <0.87 [facility] Comment on above: Order Comment: Speci men Type: BLOOD SPECIMENOrdering Facility: [facility] Address: [address] [place] [address] Performed By: #### 5 7021-8 ####[facility] LABIA [id number] [place] [address] Monocytes/100 WBC (Bld) 4.5 % Normal [facility] Comment on above: Order Comment: Speci men Type: BLOOD SPECIMENOrdering Facility: [facility] Address: [address] [place] [address] Performed By: #### 5 7021-8 ####[facility] LABCLIA [id number] [place] [address] Neutrophils (Bld) [#/Vol] 3.87 10*3/uL Normal 1.45-7.50 [facility] Comment on above: Order Comment: Speci men Type: BLOOD SPECIMENOrdering Facility: [facility] Address: [address] [place] [address] Performed By: #### 5 7021-8 ####[facility] LABCLIA [id number] [place] [address] Neutrophils/100 WBC (Bld) 70.5 % Normal [facility] Comment on above: Order Comment: Speci men Type: BLOOD SPECIMENOrdering Facility: [facility] Address: [address] [place] [address] Performed By: #### 5 7021-8 ####[facility] LABCLIA [id number] [place] [address] Nucleated RBC (Bld) [#/Vol] 10*3/uL Normal <0.01 [facility] Comment on above: Order Comment: Speci men Type: BLOOD SPECIMENOrdering Facility: [facility] Address: [address] [place] [address] Performed By: #### 5 7021-8 ####[facility] LABCLIA [id number] [place] [address] Nucleated RBC/100 WBC (Bld) [Ratio] 0.0 /100 WBC Normal [facility] Comment on above: Order Comment: Speci men Type: BLOOD SPECIMENOrdering Facility: [facility] Address: [address] [place] [address] Performed By: #### 5 7021-8 ####[facility] LABCLIA [id number] [place] [address] Platelet mean volume (Bld) [Entitic vol] 8.9 fL Low 9.0-12.7 [facility] Comment on above: Order Comment: Speci men Type: BLOOD SPECIMENOrdering Facility: [facility] Address: [address] [place] [address] Performed By: #### 5 7021-8 ####[facility] LABCLIA [id number] [place] [address] Platelets (Bld) [#/Vol] 255 10*3/uL Normal 150-400 [facility] Comment on above: Order Comment: Speci men Type: BLOOD SPECIMENOrdering Facility: [facility] Address: [address] [place] [address] Performed By: #### 5 7021-8 ####[facility] LABIA [id number] [place] [address] RBC (Bld) [#/Vol] 3.48 10*6/uL Low 3.90-5.20 [facility] Comment on above: Order Comment: Speci men Type: BLOOD SPECIMENOrdering Facility: [facility] Address: [address] [place] [address] Performed By: #### 5 7021-8 ####[facility] LABIA [id number] [place] [address] WBC (Bld) [#/Vol] 5.50 10*3/uL Normal 3.70-11.00 [facility] Comment on above: Order Comment: Speci men Type: BLOOD SPECIMENOrdering Facility: [facility] Address: [address] [place] [address] Performed By: #### 5 7021-8 ####[facility] LABIA [id number] [place] [address] CYSTATIN Con 07-06-2024 Cystatin C [Mass/Vol] 1.66 mg/L High 0.61 - 0.95 mg/L [facility] Cystatin C eGFR 36 Low - PINF [facility] Comment on above: Estimated Glomerular Filtration Rate (eGFR) is calculated using the 2012 CKD-EPI cystatin C equation. This equation utilizes serum cystatin C, sex, and age as parameters. The cystatin C assay has traceable calibration to the [facility]-DA471/IFCC reference material. Refer to KDIGO guidelines for clinical interpretation. In patients with unstable renal function, e.g. those with acute kidney injury, the eGFR may not accurately reflect actual GFR. Interpretation and review of laboratory results Abnormal [facility] Cystatin C [Mass/Vol] 1.66 mg/L High 0.61-0.95 [facility] Comment on above: Order Comment: Alison mccain Type: BLOOD SPECIMENOrdering Facility: [facility] Address: [address] [place] [address] Performed By: #### C YSTC ####[facility] LABCLIA [id number] [address] CYSTATIN C EGFR 36 mL/min/1.73m??? Low >=60 C [facility] Comment on above: Order Comment: Alison cmcain Type: BLOOD SPECIMENOrdering Facility: [facility] Address: [address] [place] [address] Result Comment: Cristal mated Glomerular Filtration Rate (eGFR) is calculated using the 2012 CKD-EPI cystatin C equation. This equation utilizes serum cystatin C, sex, and age as parameters. The cystatin C assay has traceable calibration to the [facility]-DA471/IFCC reference material. Refer to KDIGO guidelines for clinical interpretation. In patients with unstable renal function, e.g. those with acute kidney injury, the eGFR may not accurately reflect actual GFR. Performed By: #### C YSTC ####[facility] LABIA [id number] [address] [place] Comprehensive metabolic 2000 panelOrdered By: Jennifer Rosa on 07-06-2024 Albumin [Mass/Vol] 4.0 g/dL 3.9 - 4.9 g/dL [facility] ALP [Catalytic activity/Vol] 75 U/L 34 - 123 U/L [facility] ALT [Catalytic activity/Vol] 11 U/L 7 - 38 U/L [facility] Anion gap [Moles/Vol] 14 mmol/L 8 - 15 mmol/L [facility] AST [Catalytic activity/Vol] 10 U/L Low 13 - 35 U/L [facility] Bilirubin [Mass/Vol] 0.3 mg/dL 0.2 - 1 .3 mg/dL [facility] Calcium [Mass/Vol] 9.5 mg/dL 8.5 - 10. 2 mg/dL [facility] Chloride [Moles/Vol] 108 mmol/L High 98 - 10 7 mmol/L [facility] CO2 [Moles/Vol] 21 mmol/L Low 22 - 30 mmol/L [facility] Creatinine [Mass/Vol] 2.17 mg/dL High 0.58 - 0.96 mg/dL [facility] GFR/1.73 sq M.predicted among non-blacks MDRD (S/P/Bld) [Vol rate/Area] 24 mL/min/{1.73_m2} Low - PINF [facility] Comment on above: Estimated Glomerular Filtration [...] 127 mg/dL High 74 - 99 mg/dL [facility] Comment on above: The [place] Diabete s Association (ADA) provides guidance for [...] Standards of Medical Care in Diabetes 2016, [place] [employer]. Diabetes Care. 2016.39(Suppl 1). Interpretation and review of laboratory results Abnormal [facility] Potassium [Moles/Vol] 4.4 mmol/L 3.7 - 5.1 mmol/L [facility] Protein [Mass/Vol] 6.7 g/dL 6.3 - 8.0 g/dL [facility] Sodium [Moles/Vol] 143 mmol/L 136 - 144 mmol/L [facility] Urea nitrogen [Mass/Vol] 28 mg/dL High 7 - 21 mg/dL [facility] Comprehensive metabolic 2000 panelon 07-06-2024 Albumin [Mass/Vol] 4.0 g/dL Normal 3.9-4.9 [facility] Comment on above: Order Comment: Speci men Type: BLOOD SPECIMENOrdering Facility: [facility] Address: [address] [place] [address] Performed By: #### 2 4323-8 ####[facility] LABCLIA [id number] [place] [address] ALP [Catalytic activity/Vol] 75 U/L Normal 34-123 [facility] Comment on above: Order Comment: Speci men Type: BLOOD SPECIMENOrdering Facility: [facility] Address: [address] [place] [address] Performed By: #### 2 4323-8 ####[facility] LABCLIA [id number] [place] [address] ALT [Catalytic activity/Vol] 11 U/L Normal 7-38 [facility] Comment on above: Order Comment: Speci men Type: BLOOD SPECIMENOrdering Facility: [facility] Address: [address] [place] [address] Performed By: #### 2 4323-8 ####[facility] LABCLIA [id number] [place] [address] Anion gap [Moles/Vol] 14 mmol/L Normal 8-15 [facility] Comment on above: Order Comment: Speci men Type: BLOOD SPECIMENOrdering Facility: [facility] Address: [address] [place] [address] Performed By: #### 2 4323-8 ####[facility] LABCLIA [id number] [place] [address] AST [Catalytic activity/Vol] 10 U/L Low 13-35 [facility] Comment on above: Order Comment: Speci men Type: BLOOD SPECIMENOrdering Facility: [facility] Address: [address] [place] [address] Performed By: #### 2 4323-8 ####[facility] LABCLIA [id number] [place] [address] Bilirubin [Mass/Vol] 0.3 mg/dL Normal 0.2-1.3 [facility] Comment on above: Order Comment: Speci men Type: BLOOD SPECIMENOrdering Facility: [facility] Address: [address] [place] [address] Performed By: #### 2 4323-8 ####[facility] LABCLIA [id number] [place] [address] Calcium [Mass/Vol] 9.5 mg/dL Normal 8.5-10.2 [facility] Comment on above: Order Comment: Speci men Type: BLOOD SPECIMENOrdering Facility: [facility] Address: [address] [place] [address] Performed By: #### 2 4323-8 ####[facility] LABCLIA [id number] [place] [address] Chloride [Moles/Vol] 108 mmol/L High 98-107 [facility] Comment on above: Order Comment: Speci men Type: BLOOD SPECIMENOrdering Facility: [facility] Address: [address] [place], [place] [address] Performed By: #### 2 4323-8 ####[facility] LABCLIA [id number] [place] [address] CO2 [Moles/Vol] 21 mmol/L Low 22-30 [facility] Comment on above: Order Comment: Speci men Type: BLOOD SPECIMENOrdering Facility: [facility] Address: [address] [place] [address] Performed By: #### 2 4323-8 ####[facility] LABCLIA [id number] [place] [address] Creatinine [Mass/Vol] 2.17 mg/dL High 0.58-0.96 [facility] Comment on above: Order Comment: Speci men Type: BLOOD SPECIMENOrdering Facility: [facility] Address: [address] [place] [address] Performed By: #### 2 4323-8 ####[facility] LABCLIA [id number] [place] [address] Creatinine and Glomerular filtration rate.predicted panel (S/P/Bld) 24 mL/min/1.73m??? Low >=60 [facility] Comment on above: Order Comment: Speci men Type: BLOOD SPECIMENOrdering Facility: [facility] Address: [address] [place] [address] Result Comment: Cristal mated Glomerular Filtration Rate [...] actual GFR. Performed By: #### 2 4323-8 ####[facility] LABCLIA [id number] [place] [address] Glucose [Mass/Vol] 127 mg/dL High 74-99 [facility] Comment on above: Order Comment: Speci men Type: BLOOD SPECIMENOrdering Facility: [facility] Address: [address] [place], [place] [address] Result Comment: The [place] Diabetes Association (ADA) provides guidance for cutoff [...] Standards of Medical Care in Diabetes 2016, [place] [employer]. Diabetes Care. 2016.39(Suppl 1). Performed By: #### 2 4323-8 ####[facility] LABCLIA [id number] [place] [address] Potassium [Moles/Vol] 4.4 mmol/L Normal 3.7-5.1 [facility] Comment on above: Order Comment: Speci men Type: BLOOD SPECIMENOrdering Facility: [facility] Address: [address] [place] [address] Performed By: #### 2 4323-8 ####[facility] LABCLIA [id number] [place] [address] Protein [Mass/Vol] 6.7 g/dL Normal 6.3-8.0 [facility] Comment on above: Order Comment: Speci men Type: BLOOD SPECIMENOrdering Facility: [facility] Address: [address] [place] [address] Performed By: #### 2 4323-8 ####[facility] LABCLIA [id number] [place] [address] Sodium [Moles/Vol] 143 mmol/L Normal 136-144 [facility] Comment on above: Order Comment: Speci men Type: BLOOD SPECIMENOrdering Facility: [facility] Address: [address] [place] [address] Performed By: #### 2 4323-8 ####[facility] LABCLIA [id number] [place] [address] Urea nitrogen [Mass/Vol] 28 mg/dL High 7-21 [facility] Comment on above: Order Comment: Speci men Type: BLOOD SPECIMENOrdering Facility: [facility] Address: [address] [place] [address] [place] [address] Performed By: #### 2 4323-8 ####[facility] LABIA [id number] [place] [address] CNPNon 06-23-2024 CNPN Normal [facility] US THYROID/PARATHYROIDon US THYROID/PARATHYROID Normal [facility] ANES POSTPROC EVALon 024 ANES POSTPROC EVAL Normal [facility] ANES PRE-OPon 06-17-2024 ANES PRE-OP Normal [facility] OPERATIVE NOon 06-17-2024 OPERATIVE NO Normal [facility] CNOVSPon 06-03-2024 CNOVSP Normal [facility] CNPNon 06-03-2024 CNPN Normal [facility] ANES POSTPROC EVALon 024 ANES POSTPROC EVAL Normal [facility] ANES PRE-OPon 06-02-2024 ANES PRE-OP Normal [facility] OPERATIVE NOon 06-02-2024 OPERATIVE NO Normal [facility] CBC W Auto Differential pane l (Bld)on 06-01-2024 Basophils (Bld) [#/Vol] 0.04 10*3/uL [facility] Basophils/100 WBC (Bld) 0.9 % [facility] Differential cell count method Nom (Bld) Auto [facility] Eosinophils (Bld) [#/Vol] 0.43 10*3/uL [facility] Eosinophils/100 WBC (Bld) 9.8 % [facility] Erythrocyte distribution width (RBC) [Ratio] 14.0 % 11.5 - 15.0 % [facility] Hematocrit (Bld) [Volume fraction] 36.5 % 36.0 - 46.0 % [facility] Hemoglobin (Bld) [Mass/Vol] 12.1 g/dL 11.5 - 15.5 g/dL [facility] Immature granulocytes (Bld) [#/Vol] NINF [facility] Immature granulocytes/100 WBC (Bld) 0.5 % [facility] Interpretation and review of laboratory results Abnormal [facility] Lymphocytes (Bld) [#/Vol] 0.92 10*3/uL Low [facility] Lymphocytes/100 WBC (Bld) 20.9 % [facility] MCH (RBC) [Entitic mass] 31.6 pg 26.0 - 34.0 pg [facility] MCHC (RBC) [Mass/Vol] 33.2 g/dL 30.5 - 36.0 g/dL [facility] MCV (RBC) [Entitic vol] 95.3 fL 80.0 - 100.0 fL [facility] Monocytes (Bld) [#/Vol] 0.24 10*3/uL [facility] Monocytes/100 WBC (Bld) 5.5 % [facility] Neutrophils (Bld) [#/Vol] 2.75 10*3/uL [facility] Neutrophils/100 WBC (Bld) 62.4 % [facility] Nucleated RBC (Bld) [#/Vol] [facility] Nucleated RBC/100 WBC (Bld) [Ratio] 0.0 % /100 WBC [facility] Platelet mean volume (Bld) [Entitic vol] 9.0 fL 9.0 - 12.7 fL [facility] Platelets (Bld) [#/Vol] 237 10*3/uL [facility] RBC (Bld) [#/Vol] 3.83 10*6/uL Low 3.90 - 5.20 m/uL [facility] WBC (Bld) [#/Vol] 4.40 10*3/uL [facility] Basophils (Bld) [#/Vol] 0.04 10*3/uL Normal <0.11 [facility] Comment on above: Order Comment: Speci men Type: BLOOD SPECIMENOrdering Facility: [facility] Address: [address] [place] [address] Performed By: #### 5 7021-8 ####[facility] LABCLIA [id number] [place] [address] Basophils/100 WBC (Bld) 0.9 % Normal [facility] Comment on above: Order Comment: Speci men Type: BLOOD SPECIMENOrdering Facility: [facility] Address: [address] [place] [address] Performed By: #### 5 7021-8 ####[facility] LABCLIA [id number] [place] [address] Differential cell count method Nom (Bld) Auto Normal [facility] Comment on above: Order Comment: Speci men Type: BLOOD SPECIMENOrdering Facility: [facility] Address: [address] [place] [address] Performed By: #### 5 7021-8 ####[facility] LABCLIA [id number] [place] [address] Eosinophils (Bld) [#/Vol] 0.43 10*3/uL Normal <0.46 [facility] Comment on above: Order Comment: Speci men Type: BLOOD SPECIMENOrdering Facility: [facility] Address: [address] [place] [address] Performed By: #### 5 7021-8 ####[facility] LABCLIA [id number] [place] [address] Eosinophils/100 WBC (Bld) 9.8 % Normal [facility] Comment on above: Order Comment: Speci men Type: BLOOD SPECIMENOrdering Facility: [facility] Address: [address] [place] [address] Performed By: #### 5 7021-8 ####[facility] LABCLIA [id number] [place] [address] Erythrocyte distribution width (RBC) [Ratio] 14.0 % Normal 11.5-15.0 [facility] Comment on above: Order Comment: Speci men Type: BLOOD SPECIMENOrdering Facility: [facility] Address: [address] [place] [address] Performed By: #### 5 7021-8 ####[facility] LABIA [id number] [place] [address] Hematocrit (Bld) [Volume fraction] 36.5 % Normal 36.0-46.0 [facility] Comment on above: Order Comment: Speci men Type: BLOOD SPECIMENOrdering Facility: [facility] Address: [address] [place] [address] Performed By: #### 5 7021-8 ####[facility] LABCLIA [id number] [place] [address] Hemoglobin (Bld) [Mass/Vol] 12.1 g/dL Normal 11.5-15.5 [facility] Comment on above: Order Comment: Speci men Type: BLOOD SPECIMENOrdering Facility: [facility] Address: [address] [place] [address] Performed By: #### 5 7021-8 ####[facility] LABCLIA [id number] [place] [address] Immature granulocytes (Bld) [#/Vol] 10*3/uL Normal <0.10 [facility] Comment on above: Order Comment: Speci men Type: BLOOD SPECIMENOrdering Facility: [facility] Address: [address] [place] [address] Performed By: #### 5 7021-8 ####[facility] LABCLIA [id number] [place] [address] Immature granulocytes/100 WBC (Bld) 0.5 % Normal [facility] Comment on above: Order Comment: Speci men Type: BLOOD SPECIMENOrdering Facility: [facility] Address: [address] [place] [address] Performed By: #### 5 7021-8 ####[facility] LABCLIA [id number] [place] [address] Lymphocytes (Bld) [#/Vol] 0.92 10*3/uL Low 1.00-4.00 [facility] Comment on above: Order Comment: Speci men Type: BLOOD SPECIMENOrdering Facility: [facility] Address: [address] [place] [address] Performed By: #### 5 7021-8 ####[facility] LABCLIA [id number] [place] [address] Lymphocytes/100 WBC (Bld) 20.9 % Normal [facility] Comment on above: Order Comment: Speci men Type: BLOOD SPECIMENOrdering Facility: [facility] Address: [address] [place] [address] Performed By: #### 5 7021-8 ####[facility] LABCLIA [id number] [place] [address] MCH (RBC) [Entitic mass] 31.6 pg Normal 26.0-34.0 [facility] Comment on above: Order Comment: Speci men Type: BLOOD SPECIMENOrdering Facility: [facility] Address: [address] [place] [address] Performed By: #### 5 7021-8 ####[facility] LABIA [id number] [place] [address] MCHC (RBC) [Mass/Vol] 33.2 g/dL Normal 30.5-36.0 [facility] Comment on above: Order Comment: Speci men Type: BLOOD SPECIMENOrdering Facility: [facility] Address: [address] [place] [address] Performed By: #### 5 7021-8 ####[facility] LABIA [id number] [place] [address] MCV (RBC) [Entitic vol] 95.3 fL Normal 80.0-100.0 [facility] Comment on above: Order Comment: Speci men Type: BLOOD SPECIMENOrdering Facility: [facility] Address: [address] [place] [address] Performed By: #### 5 7021-8 ####[facility] LABIA [id number] [place] [address] Monocytes (Bld) [#/Vol] 0.24 10*3/uL Normal <0.87 [facility] Comment on above: Order Comment: Speci men Type: BLOOD SPECIMENOrdering Facility: [facility] Address: [address] [place] [address] Performed By: #### 5 7021-8 ####[facility] LABCLIA [id number] [place] [address] Monocytes/100 WBC (Bld) 5.5 % Normal [facility] Comment on above: Order Comment: Speci men Type: BLOOD SPECIMENOrdering Facility: [facility] Address: [address] [place] [address] Performed By: #### 5 7021-8 ####[facility] LABCLIA [id number] [place] [address] Neutrophils (Bld) [#/Vol] 2.75 10*3/uL Normal 1.45-7.50 [facility] Comment on above: Order Comment: Speci men Type: BLOOD SPECIMENOrdering Facility: [facility] Address: [address] [place] [address] Performed By: #### 5 7021-8 ####[facility] LABCLIA [id number] [place] [address] Neutrophils/100 WBC (Bld) 62.4 % Normal [facility] Comment on above: Order Comment: Speci men Type: BLOOD SPECIMENOrdering Facility: [facility] Address: [address] [place] [address] Performed By: #### 5 7021-8 ####[facility] LABCLIA [id number] [place] [address] Nucleated RBC (Bld) [#/Vol] 10*3/uL Normal <0.01 [facility] Comment on above: Order Comment: Speci men Type: BLOOD SPECIMENOrdering Facility: [facility] Address: [address] [place] [address] Performed By: #### 5 7021-8 ####[facility] LABIA [id number] [place] [address] Nucleated RBC/100 WBC (Bld) [Ratio] 0.0 /100 WBC Normal [facility] Comment on above: Order Comment: Speci men Type: BLOOD SPECIMENOrdering Facility: [facility] Address: [address] [place] [address] Performed By: #### 5 7021-8 ####[facility] LABCLIA [id number] [place] [address] Platelet mean volume (Bld) [Entitic vol] 9.0 fL Normal 9.0-12.7 [facility] Comment on above: Order Comment: Speci men Type: BLOOD SPECIMENOrdering Facility: [facility] Address: [address] [place] [address] Performed By: #### 5 7021-8 ####[facility] LABCLIA [id number] [place] [address] Platelets (Bld) [#/Vol] 237 10*3/uL Normal 150-400 [facility] Comment on above: Order Comment: Speci men Type: BLOOD SPECIMENOrdering Facility: [facility] Address: [address] [place] [address] Performed By: #### 5 7021-8 ####[facility] LABCLIA [id number] [place] [address] RBC (Bld) [#/Vol] 3.83 10*6/uL Low 3.90-5.20 [facility] Comment on above: Order Comment: Speci men Type: BLOOD SPECIMENOrdering Facility: [facility] Address: [address] [place] [address] Performed By: #### 5 7021-8 ####[facility] LABCLIA [id number] [place] [address] WBC (Bld) [#/Vol] 4.40 10*3/uL Normal 3.70-11.00 [facility] Comment on above: Order Comment: Speci men Type: BLOOD SPECIMENOrdering Facility: [facility] Address: [address] [place] [address] Performed By: #### 5 7021-8 ####[facility] LABCLIA [id number] [place] [address] Comprehensive metabolic 2000 panelOrdered By: Lebronalyse Pederson on 06-01-2024 Albumin [Mass/Vol] 4.0 g/dL 3.9 - 4.9 g/dL [facility] ALP [Catalytic activity/Vol] 90 U/L 34 - 123 U/L [facility] ALT [Catalytic activity/Vol] 18 U/L 7 - 38 U/L [facility] Anion gap [Moles/Vol] 8 mmol/L 8 - 15 mmol/L [facility] AST [Catalytic activity/Vol] 17 U/L 13 - 35 U/L [facility] Bilirubin [Mass/Vol] 0.3 mg/dL 0.2 - 1 .3 mg/dL [facility] Calcium [Mass/Vol] 9.8 mg/dL 8.5 - 10. 2 mg/dL [facility] Chloride [Moles/Vol] 104 mmol/L 98 - 10 7 mmol/L [facility] CO2 [Moles/Vol] 26 mmol/L 22 - 30 mmol/L [facility] Creatinine [Mass/Vol] 1.92 mg/dL High 0.58 - 0.96 mg/dL [facility] GFR/1.73 sq M.predicted among non-blacks MDRD (S/P/Bld) [Vol rate/Area] 28 mL/min/{1.73_m2} Low - PINF [facility] Comment on above: Estimated Glomerular Filtration [...] 146 mg/dL High 74 - 99 mg/dL [facility] Comment on above: The [place] Diab[employer] Association (ADA) provides guidance for [...] Standards of Medical Care in Diabetes 2016, [place] [employer]. Diabetes Care. 2016.39(Suppl 1). Interpretation and review of laboratory results Abnormal [facility] Potassium [Moles/Vol] 4.5 mmol/L 3.7 - 5.1 mmol/L [facility] Protein [Mass/Vol] 6.7 g/dL 6.3 - 8.0 g/dL [facility] Sodium [Moles/Vol] 138 mmol/L 136 - 144 mmol/L [facility] Urea nitrogen [Mass/Vol] 29 mg/dL High 7 - 21 mg/dL [facility] Comprehensive metabolic 2000 panelon 06-01-2024 Albumin [Mass/Vol] 4.0 g/dL Normal 3.9-4.9 [facility] Comment on above: Order Comment: Speci men Type: BLOOD SPECIMENOrdering Facility: [facility] Address: [address] [place] [address] Performed By: #### 2 4323-8 ####[facility] LABCLIA [id number] [place] [address] ALP [Catalytic activity/Vol] 90 U/L Normal 34-123 [facility] Comment on above: Order Comment: Joeli kalyn Type: BLOOD SPECIMENOrdering Facility: [facility] Address: [address] [place] [address] Performed By: #### 2 4323-8 ####[facility] LABCLIA [id number] [place] [address] ALT [Catalytic activity/Vol] 18 U/L Normal 7-38 [facility] Comment on above: Order Comment: Joeli men Type: BLOOD SPECIMENOrdering Facility: [facility] Address: [address] [place] [address] Performed By: #### 2 4323-8 ####[facility] LABCLIA [id number] [place] [address] Anion gap [Moles/Vol] 8 mmol/L Normal 8-15 [facility] Comment on above: Order Comment: Speci men Type: BLOOD SPECIMENOrdering Facility: [facility] Address: [address] [place] [address] Performed By: #### 2 4323-8 ####[facility] LABCLIA [id number] [place] [address] AST [Catalytic activity/Vol] 17 U/L Normal 13-35 [facility] Comment on above: Order Comment: Speci men Type: BLOOD SPECIMENOrdering Facility: [facility] Address: [address] [place] [address] Performed By: #### 2 4323-8 ####[facility] LABCLIA [id number] [place] [address] Bilirubin [Mass/Vol] 0.3 mg/dL Normal 0.2-1.3 [facility] Comment on above: Order Comment: Speci men Type: BLOOD SPECIMENOrdering Facility: [facility] Address: [address] [place] [address] Performed By: #### 2 4323-8 ####[facility] LABCLIA [id number] [place] [address] Calcium [Mass/Vol] 9.8 mg/dL Normal 8.5-10.2 [facility] Comment on above: Order Comment: Speci men Type: BLOOD SPECIMENOrdering Facility: [facility] Address: [address] [place] [address] Performed By: #### 2 4323-8 ####[facility] LABCLIA [id number] [place] [address] Chloride [Moles/Vol] 104 mmol/L Normal 98-107 [facility] Comment on above: Order Comment: Speci men Type: BLOOD SPECIMENOrdering Facility: [facility] Address: [address] [place] [address] Performed By: #### 2 4323-8 ####[facility] LABCLIA [id number] [place] [address] CO2 [Moles/Vol] 26 mmol/L Normal 22-30 [facility] Comment on above: Order Comment: Speci men Type: BLOOD SPECIMENOrdering Facility: [facility] Address: [address] [place] [address] Performed By: #### 2 4323-8 ####[facility] LABCLIA [id number] [place] [address] Creatinine [Mass/Vol] 1.92 mg/dL High 0.58-0.96 [facility] Comment on above: Order Comment: Speci men Type: BLOOD SPECIMENOrdering Facility: [facility] Address: [address] [place] [address] Performed By: #### 2 4323-8 ####[facility] LABCLIA [id number] [place] [address] Creatinine and Glomerular filtration rate.predicted panel (S/P/Bld) 28 mL/min/1.73m??? Low >=60 [facility] Comment on above: Order Comment: Speci men Type: BLOOD SPECIMENOrdering Facility: [facility] Address: [address] [place] [address] Result Comment: Cristal mated Glomerular Filtration Rate [...] actual GFR. Performed By: #### 2 4323-8 ####[facility] LABCLIA [id number] [place] [address] Glucose [Mass/Vol] 146 mg/dL High 74-99 [facility] Comment on above: Order Comment: Speci men Type: BLOOD SPECIMENOrdering Facility: [facility] Address: [address] [place] [address] Result Comment: The [place] [employer] (ADA) provides guidance for cutoff [...] Standards of Medical Care in Diabetes 2016, [place] [employer]. Diabetes Care. 2016.39(Suppl 1). Performed By: #### 2 4323-8 ####[facility] LABCLIA [id number] [place] [address] Potassium [Moles/Vol] 4.5 mmol/L Normal 3.7-5.1 [facility] Comment on above: Order Comment: Speci men Type: BLOOD SPECIMENOrdering Facility: [facility] Address: [address] [place] [address] Performed By: #### 2 4323-8 ####[facility] LABCLIA [id number] [place] [address] Protein [Mass/Vol] 6.7 g/dL Normal 6.3-8.0 [facility] Comment on above: Order Comment: Speci men Type: BLOOD SPECIMENOrdering Facility: [facility] Address: [address] [place] [address] Performed By: #### 2 4323-8 ####[facility]CLIA [id number] [place] [address] Sodium [Moles/Vol] 138 mmol/L Normal 136-144 [facility] Comment on above: Order Comment: Speci men Type: BLOOD SPECIMENOrdering Facility: [facility] Address: [address] [place] [address] Performed By: #### 2 4323-8 ####[facility] LABCLIA [id number] [place] [address] Urea nitrogen [Mass/Vol] 29 mg/dL High 7-21 [facility] Comment on above: Order Comment: Speci men Type: BLOOD SPECIMENOrdering Facility: [facility] Address: [address] [place] [address] Performed By: #### 2 4323-8 ####[facility] LABCLIA [id number] [place] [id number] TSH SerPl-aCncon 06-01-2024 TSH Qn 4.750 m[IU]/L High 0.270-4.20 0 [facility] Comment on above: Order Comment: Speci men Type: BLOOD SPECIMENOrdering Facility: [facility] Address: [address] [place] [address] Performed By: #### 3 016-3 ####[facility] LABCLIA [id number] [place] [address] [place] HISTORY PHYSICALon HISTORY PHYSICAL Normal [facility] CNCNPATEDon 05-15-2024 CNCNPATED Normal [facility] CBC W Auto Differential pane l (Bld)on 05-05-2024 Basophils (Bld) [#/Vol] 0.04 10*3/uL Normal <0.11 [facility] Comment on above: Order Comment: Speci men Type: BLOOD SPECIMENOrdering Facility: [facility] Address: [address] [place] [address] Performed By: #### 5 7021-8 ####[facility] LABCLIA [id number] [place] [address] [place] Basophils/100 WBC (Bld) 0.6 % Normal [facility] Comment on above: Order Comment: Speci men Type: BLOOD SPECIMENOrdering Facility: [facility] Address: [address] [place] [address] Performed By: #### 5 7021-8 ####[facility] LABCLIA [id number] [place] [address] [place] Differential cell count method Nom (Bld) Auto Normal [facility] Comment on above: Order Comment: Speci men Type: BLOOD SPECIMENOrdering Facility: [facility] Address: [address] [place] [address] Performed By: #### 5 7021-8 ####[facility] LABCLIA [id number] [place] [address] [place] Eosinophils (Bld) [#/Vol] 0.48 10*3/uL High <0.46 [facility] Comment on above: Order Comment: Speci men Type: BLOOD SPECIMENOrdering Facility: [facility] Address: [address] [place] [address] Performed By: #### 5 7021-8 ####[facility] LABCLIA [id number] [place] [address] [place] Eosinophils/100 WBC (Bld) 6.9 % Normal [facility] Comment on above: Order Comment: Speci men Type: BLOOD SPECIMENOrdering Facility: [facility] Address: [address] [place] [address] Performed By: #### 5 7021-8 ####[facility] LABIA [id number] [place] [address] [place] Erythrocyte distribution width (RBC) [Ratio] 13.4 % Normal 11.5-15.0 [facility] Comment on above: Order Comment: Speci men Type: BLOOD SPECIMENOrdering Facility: [facility] Address: [address] [place] [address] Performed By: #### 5 7021-8 ####[facility] LABCLIA [id number] [place] [address] [place] Hematocrit (Bld) [Volume fraction] 37.0 % Normal 36.0-46.0 [facility] Comment on above: Order Comment: Speci men Type: BLOOD SPECIMENOrdering Facility: [facility] Address: [address] [place] [address] Performed By: #### 5 7021-8 ####[facility] LABCLIA [id number] [place] [address] [place] Hemoglobin (Bld) [Mass/Vol] 11.8 g/dL Normal 11.5-15.5 [facility] Comment on above: Order Comment: Speci men Type: BLOOD SPECIMENOrdering Facility: [facility] Address: [address] [place] [address] Performed By: #### 5 7021-8 ####[facility] LABCLIA [id number] [place] [address] [place] Immature granulocytes (Bld) [#/Vol] 10*3/uL Normal <0.10 [facility] Comment on above: Order Comment: Speci men Type: BLOOD SPECIMENOrdering Facility: [facility] Address: [address] [place] [address] Performed By: #### 5 7021-8 ####[facility] LABCLIA [id number] [place] [address] [place] Immature granulocytes/100 WBC (Bld) 0.3 % Normal [facility] Comment on above: Order Comment: Speci men Type: BLOOD SPECIMENOrdering Facility: [facility] Address: [address] [place] [address] Performed By: #### 5 7021-8 ####[facility] LABCLIA [id number] [place] [address] [place] Lymphocytes (Bld) [#/Vol] 1.07 10*3/uL Normal 1.00-4.00 [facility] Comment on above: Order Comment: Speci men Type: BLOOD SPECIMENOrdering Facility: [facility] Address: [address] [place] [address] Performed By: #### 5 7021-8 ####[facility] LABCLIA [id number] [place] [address] [place] Lymphocytes/100 WBC (Bld) 15.4 % Normal [facility] Comment on above: Order Comment: Speci men Type: BLOOD SPECIMENOrdering Facility: [facility] Address: [address] [place] [address] Performed By: #### 5 7021-8 ####[facility] LABIA [id number] [place] [address] [place] MCH (RBC) [Entitic mass] 31.1 pg Normal 26.0-34.0 [facility] Comment on above: Order Comment: Speci men Type: BLOOD SPECIMENOrdering Facility: [facility] Address: [address] [place] [address] Performed By: #### 5 7021-8 ####[facility] LABIA [id number] [place] [address] [place] MCHC (RBC) [Mass/Vol] 31.9 g/dL Normal 30.5-36.0 [facility] Comment on above: Order Comment: Speci men Type: BLOOD SPECIMENOrdering Facility: [facility] Address: [address] [place] [address] Performed By: #### 5 7021-8 ####[facility] LABIA [id number] [place] [address] [place] MCV (RBC) [Entitic vol] 97.4 fL Normal 80.0-100.0 [facility] Comment on above: Order Comment: Speci men Type: BLOOD SPECIMENOrdering Facility: [facility] Address: [address] [place] [address] Performed By: #### 5 7021-8 ####[facility] LABIA [id number] [place] [address] [place] Monocytes (Bld) [#/Vol] 0.97 10*3/uL High <0.87 [facility] Comment on above: Order Comment: Speci men Type: BLOOD SPECIMENOrdering Facility: [facility] Address: [address] [place] [address] Performed By: #### 5 7021-8 ####[facility] LABCLIA [id number] [place] [address] [place] Monocytes/100 WBC (Bld) 13.9 % Normal [facility] Comment on above: Order Comment: Speci men Type: BLOOD SPECIMENOrdering Facility: [facility] Address: [address] [place] [address] Performed By: #### 5 7021-8 ####[facility] LABCLIA [id number] [place] [address] [place] Neutrophils (Bld) [#/Vol] 4.38 10*3/uL Normal 1.45-7.50 [facility] Comment on above: Order Comment: Speci men Type: BLOOD SPECIMENOrdering Facility: [facility] Address: [address] [place] [address] Performed By: #### 5 7021-8 ####[facility] LABCLIA [id number] [place] [address] [place] Neutrophils/100 WBC (Bld) 62.9 % Normal [facility] Comment on above: Order Comment: Speci men Type: BLOOD SPECIMENOrdering Facility: [facility] Address: [address] [place] [address] Performed By: #### 5 7021-8 ####[facility] LABCLIA [id number] [place] [address] [place] Nucleated RBC (Bld) [#/Vol] 10*3/uL Normal <0.01 [facility] Comment on above: Order Comment: Speci men Type: BLOOD SPECIMENOrdering Facility: [facility] Address: [address] [place] [address] Performed By: #### 5 7021-8 ####[facility] LABCLIA [id number] [place] [address] [place] Nucleated RBC/100 WBC (Bld) [Ratio] 0.0 /100 WBC Normal [facility] Comment on above: Order Comment: Speci men Type: BLOOD SPECIMENOrdering Facility: [facility] Address: [address] [place] [address] Performed By: #### 5 7021-8 ####[facility] LABCLIA [id number] [place] [address] [place] Platelet mean volume (Bld) [Entitic vol] 9.8 fL Normal 9.0-12.7 [facility] Comment on above: Order Comment: Speci men Type: BLOOD SPECIMENOrdering Facility: [facility] Address: [address] [place] [address] Performed By: #### 5 7021-8 ####[facility] LABIA [id number] [place] [address] [place] Platelets (Bld) [#/Vol] 318 10*3/uL Normal 150-400 [facility] Comment on above: Order Comment: Speci men Type: BLOOD SPECIMENOrdering Facility: [facility] Address: [address] [place] [address] Performed By: #### 5 7021-8 ####[facility] LABIA [id number] [place] [address] [place] RBC (Bld) [#/Vol] 3.80 10*6/uL Low 3.90-5.20 [facility] Comment on above: Order Comment: Speci men Type: BLOOD SPECIMENOrdering Facility: [facility] Address: [address] [place] [address] Performed By: #### 5 7021-8 ####[facility] LABCLIA [id number] [place] [address] [place] WBC (Bld) [#/Vol] 6.96 10*3/uL Normal 3.70-11.00 [facility] Comment on above: Order Comment: Speci men Type: BLOOD SPECIMENOrdering Facility: [facility] Address: [address] [place] [address] Performed By: #### 5 7021-8 ####[facility] LABCLIA [id number] [place] [address] [place] CNOVon 05-05-2024 CNOV Normal [facility] metabolic 2000 panelon 05-05-2024 Albumin [Mass/Vol] 3.6 g/dL Low 3.9-4.9 [facility] Comment on above: Order Comment: Speci men Type: BLOOD SPECIMENOrdering Facility: [facility] Address: [address] [place] [address] Performed By: #### 2 4323-8 ####[facility] LABCLIA [id number] [place] [address] [place] ALP [Catalytic activity/Vol] 111 U/L Normal 34-123 [facility] Comment on above: Order Comment: Speci men Type: BLOOD SPECIMENOrdering Facility: [facility] Address: [address] [place] [address] Performed By: #### 2 4323-8 ####[facility] LABCLIA [id number] [place] [address] [place] ALT [Catalytic activity/Vol] 20 U/L Normal 7-38 [facility] Comment on above: Order Comment: Speci men Type: BLOOD SPECIMENOrdering Facility: [facility] Address: [address] [place] [address] Performed By: #### 2 4323-8 ####[facility] LABCLIA [id number] [place] [address] [place] Anion gap [Moles/Vol] 12 mmol/L Normal 8-15 [facility] Comment on above: Order Comment: Speci men Type: BLOOD SPECIMENOrdering Facility: [facility] Address: [address] [place] [address] Performed By: #### 2 4323-8 ####[facility] LABCLIA [id number] [place] [address] [place] AST [Catalytic activity/Vol] 18 U/L Normal 13-35 [facility] Comment on above: Order Comment: Speci men Type: BLOOD SPECIMENOrdering Facility: [facility] Address: [address] [place] [address] Performed By: #### 2 4323-8 ####[facility] LABCLIA [id number] [place] [address] [place] Bilirubin [Mass/Vol] 0.3 mg/dL Normal 0.2-1.3 [facility] Comment on above: Order Comment: Speci men Type: BLOOD SPECIMENOrdering Facility: [facility] Address: [address] [place] [address] Performed By: #### 2 4323-8 ####[facility] LABCLIA [id number] [place] [address] [place] Calcium [Mass/Vol] 8.6 mg/dL Normal 8.5-10.2 [facility] Comment on above: Order Comment: Speci men Type: BLOOD SPECIMENOrdering Facility: [facility] Address: [address] [place] [address] Performed By: #### 2 4323-8 ####[facility] LABCLIA [id number] [place] [address] [place] Chloride [Moles/Vol] 104 mmol/L Normal 98-107 [facility] Comment on above: Order Comment: Speci men Type: BLOOD SPECIMENOrdering Facility: [facility] Address: [address] [place] [address] Performed By: #### 2 4323-8 ####[facility] LABCLIA [id number] [place] [address] [place] CO2 [Moles/Vol] 23 mmol/L Normal 22-30 [facility] Comment on above: Order Comment: Speci men Type: BLOOD SPECIMENOrdering Facility: [facility] Address: [address] [place] [address] Performed By: #### 2 4323-8 ####[facility] LABCLIA [id number] [place] [address] [place] Creatinine [Mass/Vol] 1.13 mg/dL High 0.58-0.96 [facility] Comment on above: Order Comment: Speci men Type: BLOOD SPECIMENOrdering Facility: [facility] Address: [address] [place] [address] Performed By: #### 2 4323-8 ####[facility] LABIA [id number] [address] [place] [facility] Creatinine and Glomerular filtration rate.predicted panel (S/P/Bld) 53 mL/min/1.73m??? Low >=60 [facility] Comment on above: Order Comment: Speci men Type: BLOOD SPECIMENOrdering Facility: [facility] Address: [address] [place] [address] Result Comment: Cristal mated Glomerular Filtration Rate [...] actual GFR. Performed By: #### 2 4323-8 ####[facility] LABCLIA [id number] [place] [address] [place] Glucose [Mass/Vol] 147 mg/dL High 74-99 [facility] Comment on above: Order Comment: Speci men Type: BLOOD SPECIMENOrdering Facility: [facility] Address: [address] [place] [address] Result Comment: The [place] [employer] (ADA) provides guidance for cutoff [...] Standards of Medical Care in Diabetes 2016, [place] [employer]. Diabetes Care. 2016.39(Suppl 1). Performed By: #### 2 4323-8 ####[facility] LABIA [id number] [place] [address] [place] Potassium [Moles/Vol] 4.3 mmol/L Normal 3.7-5.1 [facility] Comment on above: Order Comment: Speci men Type: BLOOD SPECIMENOrdering Facility: [facility] Address: [address] [place] [address] Performed By: #### 2 4323-8 ####[facility] LABIA [id number] [place] [address] [place] Protein [Mass/Vol] 6.0 g/dL Low 6.3-8.0 [facility] Comment on above: Order Comment: Speci men Type: BLOOD SPECIMENOrdering Facility: [facility] Address: [address] [place] [address] Performed By: #### 2 4323-8 ####[facility] LABIA [id number] [place] [address] [place] Sodium [Moles/Vol] 139 mmol/L Normal 136-144 [facility] Comment on above: Order Comment: Speci men Type: BLOOD SPECIMENOrdering Facility: [facility] Address: [address] [place] [address] Performed By: #### 2 4323-8 ####[facility] LABCLIA [id number] [address] [address] [place] Urea nitrogen [Mass/Vol] 15 mg/dL Normal 7-21 [facility] Comment on above: Order Comment: Speci men Type: BLOOD SPECIMENOrdering Facility: [facility] Address: [address] [place] [address] Performed By: #### 2 4323-8 ####[facility] LABIA [id number] [place] [id number] [place] CNPNon 04-30-2024 CNPN Normal [facility] 25(OH)D3 SerPl-mCncon 2023 25-hydroxyvitamin D3 [Mass/Vol] 62.4 ng/mL Normal 31.0-80.0 [facility] Comment on above: Order Comment: Speci men Type: BLOOD SPECIMENOrdering Facility: [facility] Address: [address] [place] [address] Result Comment: Clas sification of 25 [place] Vitamin D status:Deficiency/Insufficiency: < or = 30 ng/ml.Sufficiency/Optimal Levels: 31-80 ng/mLToxicity: > 100 ng/mL.Test performed by chemiluminescent immunoassay. Performed By: #### 1 989-3 ####[facility] LABCLIA [id number] [place] [id number] [place] 25-hydroxyvitamin D3 [Mass/V ol]on 04-21-2024 Interpretation and review of laboratory results Normal [facility] The reference range interval was based on an analysis of samples from healthy adults and may not pertain to children from 0-18 years old. [facility] CBC W Auto Differential pane l (Bld)on 04-21-2024 Basophils (Bld) [#/Vol] 0.05 10*3/uL [facility] Basophils/100 WBC (Bld) 0.8 % [facility] Differential cell count method Nom (Bld) Auto [facility] Eosinophils (Bld) [#/Vol] 0.68 10*3/uL High NINF [facility] Eosinophils/100 WBC (Bld) 10.6 % [facility] Erythrocyte distribution width (RBC) [Ratio] 13.3 % 11.5 - 15.0 % [facility] Hematocrit (Bld) [Volume fraction] 39.4 % 36.0 - 46.0 % [facility] Hemoglobin (Bld) [Mass/Vol] 13.0 g/dL 11.5 - 15.5 g/dL [facility] Immature granulocytes (Bld) [#/Vol] [facility] Immature granulocytes/100 WBC (Bld) 0.3 % [facility] Interpretation and review of laboratory results Abnormal [facility] Lymphocytes (Bld) [#/Vol] 0.86 10*3/uL Low [facility] Lymphocytes/100 WBC (Bld) 13.4 % [facility] MCH (RBC) [Entitic mass] 31.8 pg 26.0 - 34.0 pg [facility] MCHC (RBC) [Mass/Vol] 33.0 g/dL 30.5 - 36.0 g/dL [facility] MCV (RBC) [Entitic vol] 96.3 fL 80.0 - 100.0 fL [facility] Monocytes (Bld) [#/Vol] 0.50 10*3/uL [facility] Monocytes/100 WBC (Bld) 7.8 % [facility] Neutrophils (Bld) [#/Vol] 4.33 10*3/uL [facility] Neutrophils/100 WBC (Bld) 67.1 % [facility] Nucleated RBC (Bld) [#/Vol] [facility] Nucleated RBC/100 WBC (Bld) [Ratio] 0.0 % /100 WBC [facility] Platelet mean volume (Bld) [Entitic vol] 9.0 fL 9.0 - 12.7 fL [facility] Platelets (Bld) [#/Vol] 320 10*3/uL [facility] RBC (Bld) [#/Vol] 4.09 10*6/uL 3.90 - 5.20 m/uL [facility] WBC (Bld) [#/Vol] 6.44 10*3/uL [facility] Basophils (Bld) [#/Vol] 0.05 10*3/uL Normal <0.11 [facility] Comment on above: Order Comment: Speci men Type: BLOOD SPECIMENOrdering Facility: [facility] Address: [address] [place] [address] Performed By: #### 5 7021-8 ####[facility] [id number] [place] [address] [place] Basophils/100 WBC (Bld) 0.8 % Normal [facility] Comment on above: Order Comment: Speci men Type: BLOOD SPECIMENOrdering Facility: [facility] Address: [address] [place] [address] Performed By: #### 5 7021-8 ####[facility] [id number] [place] [address] [place] Differential cell count method Nom (Bld) Auto Normal [facility] Comment on above: Order Comment: Speci men Type: BLOOD SPECIMENOrdering Facility: [facility] Address: [address] [place] [address] Performed By: #### 5 7021-8 ####[facility] [id number] [place] [address] [place] Eosinophils (Bld) [#/Vol] 0.68 10*3/uL High <0.46 [facility] Comment on above: Order Comment: Speci men Type: BLOOD SPECIMENOrdering Facility: [facility] Address: [address] [place] [address] Performed By: #### 5 7021-8 ####[facility] [id number] [facility] [place] [address] [place] Eosinophils/100 WBC (Bld) 10.6 % Normal [facility] Comment on above: Order Comment: Speci men Type: BLOOD SPECIMENOrdering Facility: [facility] Address: [address] [place] [address] Performed By: #### 5 7021-8 ####[facility] [id number] [facility] [place] [address] [place] Erythrocyte distribution width (RBC) [Ratio] 13.3 % Normal 11.5-15.0 [facility] Comment on above: Order Comment: Speci men Type: BLOOD SPECIMENOrdering Facility: [facility] Address: [address] [place] [address] Performed By: #### 5 7021-8 ####[facility] [id number] [place] [address] [place] Hematocrit (Bld) [Volume fraction] 39.4 % Normal 36.0-46.0 [facility] Comment on above: Order Comment: Speci men Type: BLOOD SPECIMENOrdering Facility: [facility] Address: [address] [place] [address] Performed By: #### 5 7021-8 ####[facility] [id number] [place] [address] [place] Hemoglobin (Bld) [Mass/Vol] 13.0 g/dL Normal 11.5-15.5 [facility] Comment on above: Order Comment: Speci men Type: BLOOD SPECIMENOrdering Facility: [facility] Address: [address] [place] [address] Performed By: #### 5 7021-8 ####[facility] [id number] [place] [address] [place] Immature granulocytes (Bld) [#/Vol] 10*3/uL Normal <0.10 [facility] Comment on above: Order Comment: Speci men Type: BLOOD SPECIMENOrdering Facility: [facility] Address: [address] [place] [address] Performed By: #### 5 7021-8 ####[facility] [id number] [place] [address] [place] Immature granulocytes/100 WBC (Bld) 0.3 % Normal [facility] Comment on above: Order Comment: Speci men Type: BLOOD SPECIMENOrdering Facility: [facility] Address: [address] [place] [address] Performed By: #### 5 7021-8 ####[facility] [id number] [place] [address] [place] Lymphocytes (Bld) [#/Vol] 0.86 10*3/uL Low 1.00-4.00 [facility] Comment on above: Order Comment: Speci men Type: BLOOD SPECIMENOrdering Facility: [facility] Address: [address] [place] [address] Performed By: #### 5 7021-8 ####[facility] [id number] [place] [address] [place] Lymphocytes/100 WBC (Bld) 13.4 % Normal [facility] Comment on above: Order Comment: Speci men Type: BLOOD SPECIMENOrdering Facility: [facility] Address: [address] [place] [address] Performed By: #### 5 7021-8 ####[facility] [id number] [place] [address] [place] MCH (RBC) [Entitic mass] 31.8 pg Normal 26.0-34.0 [facility] Comment on above: Order Comment: Speci men Type: BLOOD SPECIMENOrdering Facility: [facility] Address: [address] [place] [address] Performed By: #### 5 7021-8 ####[facility] [id number] [place] [address] [place] MCHC (RBC) [Mass/Vol] 33.0 g/dL Normal 30.5-36.0 [facility] Comment on above: Order Comment: Speci men Type: BLOOD SPECIMENOrdering Facility: [facility] Address: [address] [place] [address] Performed By: #### 5 7021-8 ####[facility] [id number] [place] [address] [place] MCV (RBC) [Entitic vol] 96.3 fL Normal 80.0-100.0 [facility] Comment on above: Order Comment: Speci men Type: BLOOD SPECIMENOrdering Facility: [facility] Address: [address] [place] [address] Performed By: #### 5 7021-8 ####[facility] [id number] [place] [address] [place] Monocytes (Bld) [#/Vol] 0.50 10*3/uL Normal <0.87 [facility] Comment on above: Order Comment: Speci men Type: BLOOD SPECIMENOrdering Facility: [facility] Address: [address] [place] [address] Performed By: #### 5 7021-8 ####[facility] [id number] [place] [address] [place] Monocytes/100 WBC (Bld) 7.8 % Normal [facility] Comment on above: Order Comment: Speci men Type: BLOOD SPECIMENOrdering Facility: [facility] Address: [address] [place] [address] Performed By: #### 5 7021-8 ####[facility] [id number] [facility] [place] [address] [place] Neutrophils (Bld) [#/Vol] 4.33 10*3/uL Normal 1.45-7.50 [facility] Comment on above: Order Comment: Speci men Type: BLOOD SPECIMENOrdering Facility: [facility] Address: [address] [place] [address] Performed By: #### 5 7021-8 ####[facility] [id number] [place] [address] [place] Neutrophils/100 WBC (Bld) 67.1 % Normal [facility] Comment on above: Order Comment: Speci men Type: BLOOD SPECIMENOrdering Facility: [facility] Address: [address] [place] [address] Performed By: #### 5 7021-8 ####[facility] [id number] [place] [address] [place] Nucleated RBC (Bld) [#/Vol] 10*3/uL Normal <0.01 [facility] Comment on above: Order Comment: Speci men Type: BLOOD SPECIMENOrdering Facility: [facility] Address: [address] [place] [address] Performed By: #### 5 7021-8 ####[facility] [id number] [place] [address] [place] Nucleated RBC/100 WBC (Bld) [Ratio] 0.0 /100 WBC Normal [facility] Comment on above: Order Comment: Speci men Type: BLOOD SPECIMENOrdering Facility: [facility] Address: [address] [place] [address] Performed By: #### 5 7021-8 ####[facility] [id number] [place] [address] [place] Platelet mean volume (Bld) [Entitic vol] 9.0 fL Normal 9.0-12.7 [facility] Comment on above: Order Comment: Speci men Type: BLOOD SPECIMENOrdering Facility: [facility] Address: [address] [place] [address] Performed By: #### 5 7021-8 ####[facility] [id number] [place] [address] [place] Platelets (Bld) [#/Vol] 320 10*3/uL Normal 150-400 [facility] Comment on above: Order Comment: Speci men Type: BLOOD SPECIMENOrdering Facility: [facility] Address: [address] [place] [address] Performed By: #### 5 7021-8 ####[facility] [id number] [place] [address] [place] RBC (Bld) [#/Vol] 4.09 10*6/uL Normal 3.90-5.20 [facility] Comment on above: Order Comment: Speci men Type: BLOOD SPECIMENOrdering Facility: [facility] Address: [address] [place] [address] Performed By: #### 5 7021-8 ####[facility] LABORATORYCLIA [id number] [place] [address] [place] WBC (Bld) [#/Vol] 6.44 10*3/uL Normal 3.70-11.00 [facility] Comment on above: Order Comment: Speci men Type: BLOOD SPECIMENOrdering Facility: [facility] Address: [address] [place] [address] Performed By: #### 5 7021-8 ####[facility] LABORATORYCLIA [id number] [facility] [place] [address] [place] CNOVSPon 04-21-2024 CNOVSP Normal [facility] CNPNon 04-21-2024 CNPN Normal [facility] Comprehensive metabolic 2000 panelon 04-21-2024 Albumin [Mass/Vol] 3.8 g/dL Low 3.9 - 4.9 g/dL [facility] ALP [Catalytic activity/Vol] 117 U/L 34 - 123 U/L [facility] ALT [Catalytic activity/Vol] 23 U/L 7 - 38 U/L [facility] Anion gap [Moles/Vol] 12 mmol/L 8 - 15 mmol/L [facility] AST [Catalytic activity/Vol] 20 U/L 13 - 35 U/L [facility] Bilirubin [Mass/Vol] 0.4 mg/dL 0.2 - 1 .3 mg/dL [facility] Calcium [Mass/Vol] 9.2 mg/dL 8.5 - 10. 2 mg/dL [facility] Chloride [Moles/Vol] 102 mmol/L 98 - 10 7 mmol/L [facility] CO2 [Moles/Vol] 28 mmol/L 22 - 30 mmol/L [facility] Creatinine [Mass/Vol] 1.13 mg/dL High 0.58 - 0.96 mg/dL [facility] GFR/1.73 sq M.predicted among non-blacks MDRD (S/P/Bld) [Vol rate/Area] 53 mL/min/{1.73_m2} Low - PINF [facility] Comment on above: Estimated Glomerular Filtration [...] 148 mg/dL High 74 - 99 mg/dL [facility] Comment on above: The [place] Diab[employer] Association (ADA) provides guidance for [...] Standards of Medical Care in Diabetes 2016, [place] [employer]. Diabetes Care. 2016.39(Suppl 1). Interpretation and review of laboratory results Abnormal [facility] Potassium [Moles/Vol] 4.6 mmol/L 3.7 - 5.1 mmol/L [facility] Protein [Mass/Vol] 6.4 g/dL 6.3 - 8.0 g/dL [facility] Sodium [Moles/Vol] 142 mmol/L 136 - 144 mmol/L [facility] Urea nitrogen [Mass/Vol] 23 mg/dL High 7 - 21 mg/dL [facility] Albumin [Mass/Vol] 3.8 g/dL Low 3.9-4.9 [facility] Comment on above: Order Comment: Alison mccain Type: BLOOD SPECIMENOrdering Facility: [facility] Address: [address] [place] [address] Performed By: #### 2 4323-8 ####[facility] LABORATORYCLIA [id number] [place] [address] [place] ALP [Catalytic activity/Vol] 117 U/L Normal 34-123 [facility] Comment on above: Order Comment: Alison mccain Type: BLOOD SPECIMENOrdering Facility: [facility] Address: [address] [place] [address] Performed By: #### 2 4323-8 ####[facility] [id number] [place] [address] [place] ALT [Catalytic activity/Vol] 23 U/L Normal 7-38 [facility] Comment on above: Order Comment: Speci men Type: BLOOD SPECIMENOrdering Facility: [facility] Address: [address] [place] [address] Performed By: #### 2 4323-8 ####[facility] [id number] [place] [address] [place] Anion gap [Moles/Vol] 12 mmol/L Normal 8-15 [facility] Comment on above: Order Comment: Speci men Type: BLOOD SPECIMENOrdering Facility: [facility] Address: [address] [place] [address] Performed By: #### 2 4323-8 ####[facility] [id number] [place] [address] [place] AST [Catalytic activity/Vol] 20 U/L Normal 13-35 [facility] Comment on above: Order Comment: Speci men Type: BLOOD SPECIMENOrdering Facility: [facility] Address: [address] [place], [place] [address] Performed By: #### 2 4323-8 ####[facility] [id number] [place] [address] [place] Bilirubin [Mass/Vol] 0.4 mg/dL Normal 0.2-1.3 [facility] Comment on above: Order Comment: Speci men Type: BLOOD SPECIMENOrdering Facility: [facility] Address: [address] [place] [address] Performed By: #### 2 4323-8 ####[facility] [id number] [place] [address] [place] Calcium [Mass/Vol] 9.2 mg/dL Normal 8.5-10.2 [facility] Comment on above: Order Comment: Speci men Type: BLOOD SPECIMENOrdering Facility: [facility] Address: [address] [place] [address] Performed By: #### 2 4323-8 ####[facility] [id number] [place] [address] [place] Chloride [Moles/Vol] 102 mmol/L Normal 98-107 [facility] Comment on above: Order Comment: Speci men Type: BLOOD SPECIMENOrdering Facility: [facility] Address: [address] [place] [address] Performed By: #### 2 4323-8 ####[facility] [id number] [place] [address] [place] CO2 [Moles/Vol] 28 mmol/L Normal 22-30 [facility] Comment on above: Order Comment: Speci men Type: BLOOD SPECIMENOrdering Facility: [facility] Address: [address] [place] [address] Performed By: #### 2 4323-8 ####[facility] [id number] [place] [address] [place] Creatinine [Mass/Vol] 1.13 mg/dL High 0.58-0.96 [facility] Comment on above: Order Comment: Speci men Type: BLOOD SPECIMENOrdering Facility: [facility] Address: [address] [place] [address] Performed By: #### 2 4323-8 ####[facility] [id number] [place] [address] [place] Creatinine and Glomerular filtration rate.predicted panel (S/P/Bld) 53 mL/min/1.73m??? Low >=60 [facility] Comment on above: Order Comment: Speci men Type: BLOOD SPECIMENOrdering Facility: [facility] Address: [address] [place] [address] Result Comment: Cristal mated Glomerular Filtration Rate [...] actual GFR. Performed By: #### 2 4323-8 ####[facility]ENTERCLIA [id number] [place] [address] [place] Glucose [Mass/Vol] 148 mg/dL High 74-99 [facility] Comment on above: Order Comment: Speci men Type: BLOOD SPECIMENOrdering Facility: [facility] Address: [address] [place] [place] [id number] Result Comment: The [place] Diabetes Association (ADA) provides guidance for cutoff [...] Standards of Medical Care in Diabetes 2016, [place] [employer]. Diabetes Care. 2016.39(Suppl 1). Performed By: #### 2 4323-8 ####[facility] LABORATORYCLIA [id number] [place] [address] [place] Potassium [Moles/Vol] 4.6 mmol/L Normal 3.7-5.1 [facility] Comment on above: Order Comment: Speci men Type: BLOOD SPECIMENOrdering Facility: [facility] Address: [address] [place] [address] Performed By: #### 2 4323-8 ####[facility] LABORATORYIA [id number] [place] [address] [place] Protein [Mass/Vol] 6.4 g/dL Normal 6.3-8.0 [facility] Comment on above: Order Comment: Speci men Type: BLOOD SPECIMENOrdering Facility: [facility] Address: [address] [place], [place] [address] Performed By: #### 2 4323-8 ####[facility] [id number] [place] [address] [place] Sodium [Moles/Vol] 142 mmol/L Normal 136-144 [facility] Comment on above: Order Comment: Speci men Type: BLOOD SPECIMENOrdering Facility: [facility] Address: [address] [place] [address] Performed By: #### 2 4323-8 ####[facility] [id number] [place] [address] [place] Urea nitrogen [Mass/Vol] 23 mg/dL High 7-21 [facility] Comment on above: Order Comment: Speci men Type: BLOOD SPECIMENOrdering Facility: [facility] Address: [address] [place] [address] Performed By: #### 2 4323-8 ####[facility] [id number] [place] [address] [place] VITAMIN D 25 HYDROXYon 04-21 25-hydroxyvitamin D3 [Mass/Vol] 62.4 ng/mL 31.0 - 80.0 ng/mL [facility] Comment on above: Classification of 25 [place] Vitamin D status: Deficiency/Insufficiency: < or = 30 ng/ml. Sufficiency/Optimal Levels: 31-80 ng/mL Toxicity: > 100 ng/mL. Test performed by chemiluminescent immunoassay. CORNEAL TOPOGRAPHY PENTACAM OU (BOTH EYES)on 03-23-2024 [facility] Radiology Study observation (narrative) [facility] OCT MACULA CIRRUS OU (BOTH E YES)on 03-23-2024 [facility] Radiology Study observation (narrative) [facility] CBC W Auto Differential pane l (Bld)on 03-03-2024 Basophils (Bld) [#/Vol] 0.04 10*3/uL NINF [facility] Basophils/100 WBC (Bld) 0.5 % [facility] Differential cell count method Nom (Bld) Auto [facility] Eosinophils (Bld) [#/Vol] 0.55 10*3/uL High [facility] Eosinophils/100 WBC (Bld) 7.1 % [facility] Erythrocyte distribution width (RBC) [Ratio] 13.0 % 11.5 - 15.0 % [facility] Hematocrit (Bld) [Volume fraction] 41.7 % 36.0 - 46.0 % [facility] Hemoglobin (Bld) [Mass/Vol] 13.5 g/dL 11.5 - 15.5 g/dL [facility] Immature granulocytes (Bld) [#/Vol] [facility] Immature granulocytes/100 WBC (Bld) 0.3 % [facility] Interpretation and review of laboratory results Abnormal [facility] Lymphocytes (Bld) [#/Vol] 1.93 10*3/uL [facility] Lymphocytes/100 WBC (Bld) 25.1 % [facility] MCH (RBC) [Entitic mass] 32.2 pg 26.0 - 34.0 pg [facility] MCHC (RBC) [Mass/Vol] 32.4 g/dL 30.5 - 36.0 g/dL [facility] MCV (RBC) [Entitic vol] 99.5 fL 80.0 - 100.0 fL [facility] Monocytes (Bld) [#/Vol] 0.65 10*3/uL [facility] Monocytes/100 WBC (Bld) 8.4 % [facility] Neutrophils (Bld) [#/Vol] 4.51 10*3/uL [facility] Neutrophils/100 WBC (Bld) 58.6 % [facility] Nucleated RBC (Bld) [#/Vol] [facility] Nucleated RBC/100 WBC (Bld) [Ratio] 0.0 % /100 WBC [facility] Platelet mean volume (Bld) [Entitic vol] 9.6 fL 9.0 - 12.7 fL [facility] Platelets (Bld) [#/Vol] 291 10*3/uL [facility] RBC (Bld) [#/Vol] 4.19 10*6/uL 3.90 - 5.20 m/uL [facility] WBC (Bld) [#/Vol] 7.70 10*3/uL [facility] CT CTA CHESTon 02-15-2024 CT CTA CHEST [...] Son MD on 02/15/2024 8:48 PM [facility] BILIRUBIN, CONJUGATEDon 12-25 Bilirubin.conjugated [Mass/Vol] mg/dL NINF - 0.2 mg/dL [facility] Bilirubin.conjugated [Mass/V ol]on 01-21-2024 Interpretation and review of laboratory results Normal [facility] CBC W Auto Differential pane l (Bld)on 01-21-2024 Basophils (Bld) [#/Vol] 0.03 10*3/uL [facility] Basophils/100 WBC (Bld) 0.5 % [facility] Differential cell count method Nom (Bld) Auto [facility] Eosinophils (Bld) [#/Vol] 0.13 10*3/uL [facility] Eosinophils/100 WBC (Bld) 2.0 % [facility] Erythrocyte distribution width (RBC) [Ratio] 18.0 % High 11.5 - 15.0 % [facility] Hematocrit (Bld) [Volume fraction] 38.5 % 36.0 - 46.0 % [facility] Hemoglobin (Bld) [Mass/Vol] 12.5 g/dL 11.5 - 15.5 g/dL [facility] Immature granulocytes (Bld) [#/Vol] 0.03 10*3/uL [facility] Immature granulocytes/100 WBC (Bld) 0.5 % [facility] Interpretation and review of laboratory results Abnormal [facility] Lymphocytes (Bld) [#/Vol] 1.59 10*3/uL [facility] Lymphocytes/100 WBC (Bld) 24.9 % [facility] MCH (RBC) [Entitic mass] 32.1 pg 26.0 - 34.0 pg [facility] MCHC (RBC) [Mass/Vol] 32.5 g/dL 30.5 - 36.0 g/dL [facility] MCV (RBC) [Entitic vol] 99.0 fL 80.0 - 100.0 fL [facility] Monocytes (Bld) [#/Vol] 0.52 10*3/uL [facility] Monocytes/100 WBC (Bld) 8.2 % [facility] Neutrophils (Bld) [#/Vol] 4.08 10*3/uL [facility] Neutrophils/100 WBC (Bld) 63.9 % [facility] Nucleated RBC (Bld) [#/Vol] [facility] Nucleated RBC/100 WBC (Bld) [Ratio] 0.0 % /100 WBC [facility] Platelet mean volume (Bld) [Entitic vol] 9.0 fL 9.0 - 12.7 fL [facility] Platelets (Bld) [#/Vol] 449 10*3/uL High [facility] RBC (Bld) [#/Vol] 3.89 10*6/uL Low 3.90 - 5.20 m/uL [facility] WBC (Bld) [#/Vol] 6.38 10*3/uL [facility] Comprehensive metabolic 2000 panelOrdered By: Faviola Moreno on 01-21-2024 Albumin [Mass/Vol] 4.3 g/dL 3.9 - 4.9 g/dL [facility] ALP [Catalytic activity/Vol] 97 U/L 34 - 123 U/L [facility] ALT [Catalytic activity/Vol] 83 U/L High 7 - 38 U/L [facility] Anion gap [Moles/Vol] 11 mmol/L 9 - 18 mmol/L [facility] AST [Catalytic activity/Vol] 47 U/L High 13 - 35 U/L [facility] Bilirubin [Mass/Vol] 0.4 mg/dL 0.2 - 1 .3 mg/dL [facility] Calcium [Mass/Vol] 10.2 mg/dL 8.5 - 10. 2 mg/dL [facility] Chloride [Moles/Vol] 104 mmol/L 97 - 10 5 mmol/L [facility] CO2 [Moles/Vol] 25 mmol/L 22 - 30 mmol/L [facility] Creatinine [Mass/Vol] 1.13 mg/dL High 0.58 - 0.96 mg/dL [facility] GFR/1.73 sq M.predicted among non-blacks MDRD (S/P/Bld) [Vol rate/Area] 53 mL/min/{1.73_m2} Low - PINF [facility] Comment on above: Estimated Glomerular Filtration [...] 154 mg/dL High 74 - 99 mg/dL [facility] Comment on above: The [place] Diabete [place] Association (ADA) provides guidance for [...] Standards of Medical Care in Diabetes 2016, [place] [employer]. Diabetes Care. 2016.39(Suppl 1). Interpretation and review of laboratory results Abnormal [facility] Potassium [Moles/Vol] 4.2 mmol/L 3.7 - 5.1 mmol/L [facility] Protein [Mass/Vol] 7.1 g/dL 6.3 - 8.0 g/dL [facility] Sodium [Moles/Vol] 140 mmol/L 136 - 144 mmol/L [facility] Urea nitrogen [Mass/Vol] 17 mg/dL 7 - 21 mg/dL [facility] COMPREHENSIVE METABOLIC PANE Lito 01-17-2024 Albumin [Mass/Vol] 4.0 g/dL Normal 3.2-5.3 [facility] Comment on above: Performed By: #### C MP #### [facility] ([id number]) [address], [address] [place] [address] ALP [Catalytic activity/Vol] 82 U/L Normal 39-[address] [facility] Comment on above: Performed By: #### C MP #### [facility] ([id number]) [address], [address] [place] [address] ALT [Catalytic activity/Vol] 107 U/L High 0-[address] [facility] Comment on above: Performed By: #### C MP #### [facility] ([id number]) [address], [address] [place] [address] Anion gap [Moles/Vol] 12 mmol/L Normal 5-[address] [facility] Comment on above: Performed By: #### C MP #### [facility] ([id number]) [address], [address] [place] [address] AST [Catalytic activity/Vol] 46 U/L High 0-[address] [facility] Comment on above: Performed By: #### C MP #### [facility] ([id number]) [address], [address] [place] [address] Bilirubin [Mass/Vol] 0.3 mg/dL Normal 0.3-1.2 [facility] Comment on above: Performed By: #### C MP #### [facility] ([id number]) [address] [place] [address] Calcium [Mass/Vol] 9.3 mg/dL Normal 8.5-10.5 [facility] Comment on above: Performed By: #### C MP #### [facility] ([id number]) [address], [address] [place] [address] Chloride [Moles/Vol] 104 mmol/L Normal 98-109 [facility] Comment on above: Performed By: #### C MP #### [facility] ([id number]) [address] [place] [address] CO2 [Moles/Vol] 25 mmol/L Normal 22-[address] [facility] Comment on above: Performed By: #### C MP #### [facility] ([id number]) [address], [address] [place] [address] Creatinine [Mass/Vol] 1.08 mg/dL High 0.40-1.[address] [facility] Comment on above: Result Comment: METH OD TRACEABLE TO IDMS STANDARD Performed By: #### C MP #### [facility] ([id number]) [address] [facility] [address] [place] [address] GFR/1.73 sq M.predicted among non-blacks MDRD (S/P/Bld) [Vol rate/Area] 56 mL/min/{1.73_m2} Low >[address] [facility] Comment on above: Result Comment: Reported eGFR is based on the CKD-EPI 2020 equation that does not use a race coefficient. Performed By: #### C MP #### [facility] ([id number]) [address], [address] [place] [address] Glucose [Mass/Vol] 134 mg/dL High 65-99 [facility] Comment on above: Performed By: #### C MP #### [facility] ([id number]) [address], [address] [place] [address] Potassium [Moles/Vol] 4.0 mmol/L Normal 3.5-5.[address] [facility] Comment on above: Performed By: #### C MP #### [facility] ([id number]) [address], [address] [place] [address] Protein [Mass/Vol] 6.6 g/dL Normal 6.0-8.0 [facility] Comment on above: Performed By: #### C MP #### [facility] ([id number]) [address], [address] [place] [address] Sodium [Moles/Vol] 141 mmol/L Normal 134-146 [facility] Comment on above: Performed By: #### C MP #### [facility] ([id number]) [address], [address] [place] [address] Urea nitrogen [Mass/Vol] 14 mg/dL Normal 5-[address] [facility] Comment on above: Performed By: #### C MP #### [facility] ([id number]) [address], [address] [place] [address] CBC W Auto Differential pane l (Bld)on 01-14-2024 Basophils (Bld) [#/Vol] 0.04 10*3/uL [facility] Basophils/100 WBC (Bld) 0.9 % [facility] Differential cell count method Nom (Bld) Auto [facility] Eosinophils (Bld) [#/Vol] 0.13 10*3/uL [facility] Eosinophils/100 WBC (Bld) 3.0 % [facility] Erythrocyte distribution width (RBC) [Ratio] 17.6 % High 11.5 - 15.0 % [facility] Hematocrit (Bld) [Volume fraction] 35.4 % Low 36.0 - 46.0 % [facility] Hemoglobin (Bld) [Mass/Vol] 11.4 g/dL Low 11.5 - 15.5 g/dL [facility] Immature granulocytes (Bld) [#/Vol] NINF [facility] Immature granulocytes/100 WBC (Bld) 0.5 % [facility] Interpretation and review of laboratory results Abnormal [facility] Lymphocytes (Bld) [#/Vol] 1.27 10*3/uL [facility] Lymphocytes/100 WBC (Bld) 28.9 % [facility] MCH (RBC) [Entitic mass] 31.6 pg 26.0 - 34.0 pg [facility] MCHC (RBC) [Mass/Vol] 32.2 g/dL 30.5 - 36.0 g/dL [facility] MCV (RBC) [Entitic vol] 98.1 fL 80.0 - 100.0 fL [facility] Monocytes (Bld) [#/Vol] 0.35 10*3/uL [facility] Monocytes/100 WBC (Bld) 8.0 % [facility] Neutrophils (Bld) [#/Vol] 2.58 10*3/uL [facility] Neutrophils/100 WBC (Bld) 58.7 % [facility] Nucleated RBC (Bld) [#/Vol] [facility] Nucleated RBC/100 WBC (Bld) [Ratio] 0.0 % /100 WBC [facility] Platelet mean volume (Bld) [Entitic vol] 9.4 fL 9.0 - 12.7 fL [facility] Platelets (Bld) [#/Vol] 397 10*3/uL [facility] RBC (Bld) [#/Vol] 3.61 10*6/uL Low 3.90 - 5.20 m/uL [facility] WBC (Bld) [#/Vol] 4.39 10*3/uL [facility] Comprehensive metabolic 2000 panelOrdered By: Lebron Pederson on 01-14-2024 Albumin [Mass/Vol] 3.9 g/dL 3.9 - 4.9 g/dL [facility] ALP [Catalytic activity/Vol] 91 U/L 34 - 123 U/L [facility] ALT [Catalytic activity/Vol] 139 U/L High 7 - 38 U/L [facility] Anion gap [Moles/Vol] 11 mmol/L 9 - 18 mmol/L [facility] AST [Catalytic activity/Vol] 118 U/L High 13 - 35 U/L [facility] Bilirubin [Mass/Vol] 0.2 mg/dL 0.2 - 1 .3 mg/dL [facility] Calcium [Mass/Vol] 9.6 mg/dL 8.5 - 10. 2 mg/dL [facility] Chloride [Moles/Vol] 103 mmol/L 97 - 10 5 mmol/L [facility] CO2 [Moles/Vol] 24 mmol/L 22 - 30 mmol/L [facility] Creatinine [Mass/Vol] 1.15 mg/dL High 0.58 - 0.96 mg/dL [facility] GFR/1.73 sq M.predicted among non-blacks MDRD (S/P/Bld) [Vol rate/Area] 52 mL/min/{1.73_m2} Low - PINF [facility] Comment on above: Estimated Glomerular Filtration [...] 169 mg/dL High 74 - 99 mg/dL [facility] Comment on above: The [place] [employer] (ADA) provides guidance for [...] Standards of Medical Care in Diabetes 2016, [place] [employer]. Diabetes Care. 2016.39(Suppl 1). Interpretation and review of laboratory results Abnormal [facility] Potassium [Moles/Vol] 4.3 mmol/L 3.7 - 5.1 mmol/L [facility] Protein [Mass/Vol] 6.4 g/dL 6.3 - 8.0 g/dL [facility] Sodium [Moles/Vol] 138 mmol/L 136 - 144 mmol/L [facility] Urea nitrogen [Mass/Vol] 16 mg/dL 7 - 21 mg/dL [facility] CBC W Auto Differential pane l (Bld)on 01-07-2024 Basophils (Bld) [#/Vol] 0.03 10*3/uL [facility] Basophils/100 WBC (Bld) 0.4 % [facility] Differential cell count method Nom (Bld) Auto [facility] Eosinophils (Bld) [#/Vol] 0.24 10*3/uL [facility] Eosinophils/100 WBC (Bld) 3.2 % [facility] Erythrocyte distribution width (RBC) [Ratio] 18.1 % High 11.5 - 15.0 % [facility] Hematocrit (Bld) [Volume fraction] 33.5 % Low 36.0 - 46.0 % [facility] Hemoglobin (Bld) [Mass/Vol] 11.0 g/dL Low 11.5 - 15.5 g/dL [facility] Immature granulocytes (Bld) [#/Vol] 0.03 10*3/uL [facility] Immature granulocytes/100 WBC (Bld) 0.4 % [facility] Interpretation and review of laboratory results Abnormal [facility] Lymphocytes (Bld) [#/Vol] 0.98 10*3/uL Low [facility] Lymphocytes/100 WBC (Bld) 13.0 % [facility] MCH (RBC) [Entitic mass] 31.9 pg 26.0 - 34.0 pg [facility] MCHC (RBC) [Mass/Vol] 32.8 g/dL 30.5 - 36.0 g/dL [facility] MCV (RBC) [Entitic vol] 97.1 fL 80.0 - 100.0 fL [facility] Monocytes (Bld) [#/Vol] 0.31 10*3/uL [facility] Monocytes/100 WBC (Bld) 4.1 % [facility] Neutrophils (Bld) [#/Vol] 5.93 10*3/uL [facility] Neutrophils/100 WBC (Bld) 78.9 % [facility] Nucleated RBC (Bld) [#/Vol] NINF [facility] Nucleated RBC/100 WBC (Bld) [Ratio] 0.0 % /100 WBC [facility] Platelet mean volume (Bld) [Entitic vol] 9.8 fL 9.0 - 12.7 fL [facility] Platelets (Bld) [#/Vol] 320 10*3/uL [facility] RBC (Bld) [#/Vol] 3.45 10*6/uL Low 3.90 - 5.20 m/uL [facility] WBC (Bld) [#/Vol] 7.52 10*3/uL [facility] Comprehensive metabolic 2000 panelOrdered By: Jennifer Rosa on 01-07-2024 Albumin [Mass/Vol] 4.0 g/dL 3.9 - 4.9 g/dL [facility] ALP [Catalytic activity/Vol] 100 U/L 34 - 123 U/L [facility] ALT [Catalytic activity/Vol] 29 U/L 7 - 38 U/L [facility] Anion gap [Moles/Vol] 9 mmol/L 9 - 18 mmol/L [facility] AST [Catalytic activity/Vol] 16 U/L 13 - 35 U/L [facility] Bilirubin [Mass/Vol] 0.4 mg/dL 0.2 - 1 .3 mg/dL [facility] Calcium [Mass/Vol] 9.7 mg/dL 8.5 - 10. 2 mg/dL [facility] Chloride [Moles/Vol] 101 mmol/L 97 - 10 5 mmol/L [facility] CO2 [Moles/Vol] 28 mmol/L 22 - 30 mmol/L [facility] Creatinine [Mass/Vol] 1.23 mg/dL High 0.58 - 0.96 mg/dL [facility] GFR/1.73 sq M.predicted among non-blacks MDRD (S/P/Bld) [Vol rate/Area] 48 mL/min/{1.73_m2} Low - PINF [facility] Comment on above: Estimated Glomerular Filtration [...] 154 mg/dL High 74 - 99 mg/dL [facility] Comment on above: The [place] [employer] (ADA) provides guidance for [...] Standards of Medical Care in Diabetes 2016, [place] [employer]. Diabetes Care. 2016.39(Suppl 1). Interpretation and review of laboratory results Abnormal [facility] Potassium [Moles/Vol] 4.5 mmol/L 3.7 - 5.1 mmol/L [facility] Protein [Mass/Vol] 6.8 g/dL 6.3 - 8.0 g/dL [facility] Sodium [Moles/Vol] 138 mmol/L 136 - 144 mmol/L [facility] Urea nitrogen [Mass/Vol] 25 mg/dL High 7 - 21 mg/dL [facility] CBC W Auto Differential pane l (Bld)on 12-31-2023 Basophils (Bld) [#/Vol] 0.03 10*3/uL [facility] Basophils/100 WBC (Bld) 0.5 % [facility] Differential cell count method Nom (Bld) Auto [facility] Eosinophils (Bld) [#/Vol] 0.21 10*3/uL [facility] Eosinophils/100 WBC (Bld) 3.8 % [facility] Erythrocyte distribution width (RBC) [Ratio] 18.6 % High 11.5 - 15.0 % [facility] Hematocrit (Bld) [Volume fraction] 36.5 % 36.0 - 46.0 % [facility] Hemoglobin (Bld) [Mass/Vol] 12.2 g/dL 11.5 - 15.5 g/dL [facility] Immature granulocytes (Bld) [#/Vol] 0.03 10*3/uL [facility] Immature granulocytes/100 WBC (Bld) 0.5 % [facility] Interpretation and review of laboratory results Abnormal [facility] Lymphocytes (Bld) [#/Vol] 1.16 10*3/uL [facility] Lymphocytes/100 WBC (Bld) 20.9 % [facility] MCH (RBC) [Entitic mass] 32.0 pg 26.0 - 34.0 pg [facility] MCHC (RBC) [Mass/Vol] 33.4 g/dL 30.5 - 36.0 g/dL [facility] MCV (RBC) [Entitic vol] 95.8 fL 80.0 - 100.0 fL [facility] Monocytes (Bld) [#/Vol] 0.44 10*3/uL [facility] Monocytes/100 WBC (Bld) 7.9 % [facility] Neutrophils (Bld) [#/Vol] 3.68 10*3/uL [facility] Neutrophils/100 WBC (Bld) 66.4 % [facility] Nucleated RBC (Bld) [#/Vol] [facility] Nucleated RBC/100 WBC (Bld) [Ratio] 0.0 % /100 WBC [facility] Platelet mean volume (Bld) [Entitic vol] 9.2 fL 9.0 - 12.7 fL [facility] Platelets (Bld) [#/Vol] 320 10*3/uL [facility] RBC (Bld) [#/Vol] 3.81 10*6/uL Low 3.90 - 5.20 m/uL [facility] WBC (Bld) [#/Vol] 5.55 10*3/uL [facility] Comprehensive metabolic 2000 panelOrdered By: Jennifer Rosa on 12-31-2023 Albumin [Mass/Vol] 4.1 g/dL 3.9 - 4.9 g/dL [facility] ALP [Catalytic activity/Vol] 99 U/L 34 - 123 U/L [facility] ALT [Catalytic activity/Vol] 37 U/L 7 - 38 U/L [facility] Anion gap [Moles/Vol] 10 mmol/L 9 - 18 mmol/L [facility] AST [Catalytic activity/Vol] 22 U/L 13 - 35 U/L [facility] Bilirubin [Mass/Vol] 0.6 mg/dL 0.2 - 1 .3 mg/dL [facility] Calcium [Mass/Vol] 9.3 mg/dL 8.5 - 10. 2 mg/dL [facility] Chloride [Moles/Vol] 103 mmol/L 97 - 10 5 mmol/L [facility] CO2 [Moles/Vol] 27 mmol/L 22 - 30 mmol/L [facility] Creatinine [Mass/Vol] 1.16 mg/dL High 0.58 - 0.96 mg/dL [facility] GFR/1.73 sq M.predicted among non-blacks MDRD (S/P/Bld) [Vol rate/Area] 51 mL/min/{1.73_m2} Low - PINF [facility] Comment on above: Estimated Glomerular Filtration [...] 131 mg/dL High 74 - 99 mg/dL [facility] Comment on above: The [place] [employer] (ADA) provides guidance for [...] Standards of Medical Care in Diabetes 2016, [place] [employer]. Diabetes Care. 2016.39(Suppl 1). Interpretation and review of laboratory results Abnormal [facility] Potassium [Moles/Vol] 4.1 mmol/L 3.7 - 5.1 mmol/L [facility] Protein [Mass/Vol] 6.5 g/dL 6.3 - 8.0 g/dL [facility] Sodium [Moles/Vol] 140 mmol/L 136 - 144 mmol/L [facility] Urea nitrogen [Mass/Vol] 23 mg/dL High 7 - 21 mg/dL [facility] CBC W Auto Differential pane l (Bld)on 12-24-2023 Basophils (Bld) [#/Vol] 0.04 10*3/uL [facility] Basophils/100 WBC (Bld) 0.7 % [facility] Differential cell count method Nom (Bld) Auto [facility] Eosinophils (Bld) [#/Vol] 0.18 10*3/uL [facility] Eosinophils/100 WBC (Bld) 3.0 % [facility] Erythrocyte distribution width (RBC) [Ratio] 18.4 % High 11.5 - 15.0 % [facility] Hematocrit (Bld) [Volume fraction] 35.8 % Low 36.0 - 46.0 % [facility] Hemoglobin (Bld) [Mass/Vol] 11.9 g/dL 11.5 - 15.5 g/dL [facility] Immature granulocytes (Bld) [#/Vol] [facility] Immature granulocytes/100 WBC (Bld) 0.3 % [facility] Interpretation and review of laboratory results Abnormal [facility] Lymphocytes (Bld) [#/Vol] 1.25 10*3/uL [facility] Lymphocytes/100 WBC (Bld) 20.6 % [facility] MCH (RBC) [Entitic mass] 31.6 pg 26.0 - 34.0 pg [facility] MCHC (RBC) [Mass/Vol] 33.2 g/dL 30.5 - 36.0 g/dL [facility] MCV (RBC) [Entitic vol] 95.2 fL 80.0 - 100.0 fL [facility] Monocytes (Bld) [#/Vol] 0.57 10*3/uL [facility] Monocytes/100 WBC (Bld) 9.4 % [facility] Neutrophils (Bld) [#/Vol] 4.02 10*3/uL [facility] Neutrophils/100 WBC (Bld) 66.0 % [facility] Nucleated RBC (Bld) [#/Vol] [facility] Nucleated RBC/100 WBC (Bld) [Ratio] 0.0 % /100 WBC [facility] Platelet mean volume (Bld) [Entitic vol] 9.2 fL 9.0 - 12.7 fL [facility] Platelets (Bld) [#/Vol] 322 10*3/uL [facility] RBC (Bld) [#/Vol] 3.76 10*6/uL Low 3.90 - 5.20 m/uL [facility] WBC (Bld) [#/Vol] 6.08 10*3/uL [facility] Comprehensive metabolic 2000 panelOrdered By: Lebron Pederson on 12-24-2023 Albumin [Mass/Vol] 4.1 g/dL 3.9 - 4.9 g/dL [facility] ALP [Catalytic activity/Vol] 98 U/L 34 - 123 U/L [facility] ALT [Catalytic activity/Vol] 39 U/L High 7 - 38 U/L [facility] Anion gap [Moles/Vol] 12 mmol/L 9 - 18 mmol/L [facility] AST [Catalytic activity/Vol] 26 U/L 13 - 35 U/L [facility] Bilirubin [Mass/Vol] 0.4 mg/dL 0.2 - 1 .3 mg/dL [facility] Calcium [Mass/Vol] 9.4 mg/dL 8.5 - 10. 2 mg/dL [facility] Chloride [Moles/Vol] 104 mmol/L 97 - 10 5 mmol/L [facility] CO2 [Moles/Vol] 27 mmol/L 22 - 30 mmol/L [facility] Creatinine [Mass/Vol] 1.12 mg/dL High 0.58 - 0.96 mg/dL [facility] GFR/1.73 sq M.predicted among non-blacks MDRD (S/P/Bld) [Vol rate/Area] 53 mL/min/{1.73_m2} Low - PINF [facility] Comment on above: Estimated Glomerular Filtration [...] 152 mg/dL High 74 - 99 mg/dL [facility] Comment on above: The [place] [employer] (ADA) provides guidance for [...] Standards of Medical Care in Diabetes 2016, [place] [employer]. Diabetes Care. 2016.39(Suppl 1). Interpretation and review of laboratory results Abnormal [facility] Potassium [Moles/Vol] 4.0 mmol/L 3.7 - 5.1 mmol/L [facility] Protein [Mass/Vol] 6.7 g/dL 6.3 - 8.0 g/dL [facility] Sodium [Moles/Vol] 143 mmol/L 136 - 144 mmol/L [facility] Urea nitrogen [Mass/Vol] 23 mg/dL High 7 - 21 mg/dL [facility] CBC W Auto Differential pane l (Bld)on 12-10-2023 Basophils (Bld) [#/Vol] 0.06 10*3/uL <0.11 k/uL [facility] Basophils/100 WBC (Bld) 0.8 % [facility] Differential cell count method Nom (Bld) Auto [facility] Eosinophils (Bld) [#/Vol] 0.69 10*3/uL High <0.46 k/uL [facility] Eosinophils/100 WBC (Bld) 9.1 % [facility] Erythrocyte distribution width (RBC) [Ratio] 16.7 % High 11.5 - 15.0 % [facility] Hematocrit (Bld) [Volume fraction] 33.6 % Low 36.0 - 46.0 % [facility] Hemoglobin (Bld) [Mass/Vol] 11.0 g/dL Low 11.5 - 15.5 g/dL [facility] Immature granulocytes (Bld) [#/Vol] 0.04 10*3/uL <0.10 k/uL [facility] Immature granulocytes/100 WBC (Bld) 0.5 % [facility] Lymphocytes (Bld) [#/Vol] 1.35 10*3/uL 1.00 - 4.00 k/uL [facility] Lymphocytes/100 WBC (Bld) 17.9 % [facility] MCH (RBC) [Entitic mass] 30.6 pg 26.0 - 34.0 pg [facility] MCHC (RBC) [Mass/Vol] 32.7 g/dL 30.5 - 36.0 g/dL [facility] MCV (RBC) [Entitic vol] 93.6 fL 80.0 - 100.0 fL [facility] Monocytes (Bld) [#/Vol] 0.32 10*3/uL <0.87 k/uL [facility] Monocytes/100 WBC (Bld) 4.2 % [facility] Neutrophils (Bld) [#/Vol] 5.10 10*3/uL 1.45 - 7.50 k/uL [facility] Neutrophils/100 WBC (Bld) 67.5 % [facility] Nucleated RBC (Bld) [#/Vol] <0.01 k/uL [facility] Nucleated RBC/100 WBC (Bld) [Ratio] 0.0 /100 WBC [facility] Platelet mean volume (Bld) [Entitic vol] 9.9 fL 9.0 - 12.7 fL [facility] Platelets (Bld) [#/Vol] 335 10*3/uL 150 - 400 k/uL [facility] RBC (Bld) [#/Vol] 3.59 10*6/uL Low 3.90 - 5.20 m/uL [facility] WBC (Bld) [#/Vol] 7.56 10*3/uL 3.70 - 11.00 k/uL [facility] Comprehensive metabolic 2000 panelon 12-10-2023 Albumin [Mass/Vol] 4.0 g/dL 3.9 - 4.9 g/dL [facility] ALP [Catalytic activity/Vol] 101 U/L 34 - 123 U/L [facility] ALT [Catalytic activity/Vol] 28 U/L 7 - 38 U/L [facility] Anion gap [Moles/Vol] 12 mmol/L 9 - 18 mmol/L [facility] AST [Catalytic activity/Vol] 17 U/L 13 - 35 U/L [facility] Bilirubin [Mass/Vol] 0.3 mg/dL 0.2 - 1 .3 mg/dL [facility] Calcium [Mass/Vol] 10.0 mg/dL 8.5 - 10. 2 mg/dL [facility] Chloride [Moles/Vol] 107 mmol/L High 97 - 10 5 mmol/L [facility] CO2 [Moles/Vol] 24 mmol/L 22 - 30 mmol/L [facility] Creatinine [Mass/Vol] 1.25 mg/dL High 0.58 - 0.96 mg/dL [facility] Estimated Glomerular Filtration Rate 47 mL/min/1.73m Low >=60 mL/min/1.7 3m [facility] Glucose [Mass/Vol] 159 mg/dL High 74 - 99 mg/dL [facility] Potassium [Moles/Vol] 5.0 mmol/L 3.7 - 5.1 mmol/L [facility] Protein [Mass/Vol] 6.6 g/dL 6.3 - 8.0 g/dL [facility] Sodium [Moles/Vol] 143 mmol/L 136 - 144 mmol/L [facility] Urea nitrogen [Mass/Vol] 28 mg/dL High 7 - 21 mg/dL [facility] CBC W Auto Differential pane l (Bld)on 12-03-2023 Basophils (Bld) [#/Vol] 0.11 10*3/uL High <0.11 k/uL [facility] Basophils/100 WBC (Bld) 1.9 % [facility] Differential cell count method Nom (Bld) Auto [facility] Eosinophils (Bld) [#/Vol] 0.21 10*3/uL <0.46 k/uL [facility] Eosinophils/100 WBC (Bld) 3.6 % [facility] Erythrocyte distribution width (RBC) [Ratio] 16.6 % High 11.5 - 15.0 % [facility] Hematocrit (Bld) [Volume fraction] 33.9 % Low 36.0 - 46.0 % [facility] Hemoglobin (Bld) [Mass/Vol] 11.3 g/dL Low 11.5 - 15.5 g/dL [facility] Immature granulocytes (Bld) [#/Vol] 0.03 10*3/uL <0.10 k/uL [facility] Immature granulocytes/100 WBC (Bld) 0.5 % [facility] Lymphocytes (Bld) [#/Vol] 1.19 10*3/uL 1.00 - 4.00 k/uL [facility] Lymphocytes/100 WBC (Bld) 20.4 % [facility] MCH (RBC) [Entitic mass] 31.0 pg 26.0 - 34.0 pg [facility] MCHC (RBC) [Mass/Vol] 33.3 g/dL 30.5 - 36.0 g/dL [facility] MCV (RBC) [Entitic vol] 92.9 fL 80.0 - 100.0 fL [facility] Monocytes (Bld) [#/Vol] 0.54 10*3/uL <0.87 k/uL [facility] Monocytes/100 WBC (Bld) 9.2 % [facility] Neutrophils (Bld) [#/Vol] 3.76 10*3/uL 1.45 - 7.50 k/uL [facility] Neutrophils/100 WBC (Bld) 64.4 % [facility] Nucleated RBC (Bld) [#/Vol] <0.01 k/uL [facility] Nucleated RBC/100 WBC (Bld) [Ratio] 0.0 /100 WBC [facility] Platelet mean volume (Bld) [Entitic vol] 9.3 fL 9.0 - 12.7 fL [facility] Platelets (Bld) [#/Vol] 556 10*3/uL High 150 - 400 k/uL [facility] RBC (Bld) [#/Vol] 3.65 10*6/uL Low 3.90 - 5.20 m/uL [facility] WBC (Bld) [#/Vol] 5.84 10*3/uL 3.70 - 11.00 k/uL [facility] Comprehensive metabolic 2000 panelon 12-03-2023 Albumin [Mass/Vol] 4.4 g/dL 3.9 - 4.9 g/dL [facility] ALP [Catalytic activity/Vol] 104 U/L 34 - 123 U/L [facility] ALT [Catalytic activity/Vol] 31 U/L 7 - 38 U/L [facility] Anion gap [Moles/Vol] 13 mmol/L 9 - 18 mmol/L [facility] AST [Catalytic activity/Vol] 25 U/L 13 - 35 U/L [facility] Bilirubin [Mass/Vol] 0.3 mg/dL 0.2 - 1 .3 mg/dL [facility] Calcium [Mass/Vol] 10.0 mg/dL 8.5 - 10. 2 mg/dL [facility] Chloride [Moles/Vol] 100 mmol/L 97 - 10 5 mmol/L [facility] CO2 [Moles/Vol] 27 mmol/L 22 - 30 mmol/L [facility] Creatinine [Mass/Vol] 1.59 mg/dL High 0.58 - 0.96 mg/dL [facility] Estimated Glomerular Filtration Rate 35 mL/min/1.73m Low >=60 mL/min/1.7 3m [facility] Glucose [Mass/Vol] 156 mg/dL High 74 - 99 mg/dL [facility] Potassium [Moles/Vol] 4.4 mmol/L 3.7 - 5.1 mmol/L [facility] Protein [Mass/Vol] 7.0 g/dL 6.3 - 8.0 g/dL [facility] Sodium [Moles/Vol] 140 mmol/L 136 - 144 mmol/L [facility] Urea nitrogen [Mass/Vol] 33 mg/dL High 7 - 21 mg/dL [facility] CBC W Auto Differential pane l (Bld)on 11-26-2023 Basophils (Bld) [#/Vol] 0.07 10*3/uL <0.11 k/uL [facility] Basophils/100 WBC (Bld) 1.0 % [facility] Differential cell count method Nom (Bld) Auto [facility] Eosinophils (Bld) [#/Vol] 0.05 10*3/uL <0.46 k/uL [facility] Eosinophils/100 WBC (Bld) 0.7 % [facility] Erythrocyte distribution width (RBC) [Ratio] 16.2 % High 11.5 - 15.0 % [facility] Hematocrit (Bld) [Volume fraction] 32.4 % Low 36.0 - 46.0 % [facility] Hemoglobin (Bld) [Mass/Vol] 10.6 g/dL Low 11.5 - 15.5 g/dL [facility] Immature granulocytes (Bld) [#/Vol] 0.04 10*3/uL <0.10 k/uL [facility] Immature granulocytes/100 WBC (Bld) 0.6 % [facility] Lymphocytes (Bld) [#/Vol] 1.04 10*3/uL 1.00 - 4.00 k/uL [facility] Lymphocytes/100 WBC (Bld) 15.2 % [facility] MCH (RBC) [Entitic mass] 30.6 pg 26.0 - 34.0 pg [facility] MCHC (RBC) [Mass/Vol] 32.7 g/dL 30.5 - 36.0 g/dL [facility] MCV (RBC) [Entitic vol] 93.6 fL 80.0 - 100.0 fL [facility] Monocytes (Bld) [#/Vol] 0.47 10*3/uL <0.87 k/uL [facility] Monocytes/100 WBC (Bld) 6.9 % [facility] Neutrophils (Bld) [#/Vol] 5.18 10*3/uL 1.45 - 7.50 k/uL [facility] Neutrophils/100 WBC (Bld) 75.6 % [facility] Nucleated RBC (Bld) [#/Vol] <0.01 k/uL [facility] Nucleated RBC/100 WBC (Bld) [Ratio] 0.0 /100 WBC [facility] Platelet mean volume (Bld) [Entitic vol] 9.0 fL 9.0 - 12.7 fL [facility] Platelets (Bld) [#/Vol] 513 10*3/uL High 150 - 400 k/uL [facility] RBC (Bld) [#/Vol] 3.46 10*6/uL Low 3.90 - 5.20 m/uL [facility] WBC (Bld) [#/Vol] 6.85 10*3/uL 3.70 - 11.00 k/uL [facility] Comprehensive metabolic 2000 panelon 11-26-2023 Albumin [Mass/Vol] 4.1 g/dL 3.9 - 4.9 g/dL [facility] ALP [Catalytic activity/Vol] 105 U/L 34 - 123 U/L [facility] ALT [Catalytic activity/Vol] 24 U/L 7 - 38 U/L [facility] Anion gap [Moles/Vol] 14 mmol/L 9 - 18 mmol/L [facility] AST [Catalytic activity/Vol] 20 U/L 13 - 35 U/L [facility] Bilirubin [Mass/Vol] 0.2 mg/dL 0.2 - 1 .3 mg/dL [facility] Calcium [Mass/Vol] 10.0 mg/dL 8.5 - 10. 2 mg/dL [facility] Chloride [Moles/Vol] 105 mmol/L 97 - 10 5 mmol/L [facility] CO2 [Moles/Vol] 28 mmol/L 22 - 30 mmol/L [facility] Creatinine [Mass/Vol] 1.35 mg/dL High 0.58 - 0.96 mg/dL [facility] Estimated Glomerular Filtration Rate 43 mL/min/1.73m Low >=60 mL/min/1.7 3m [facility] Glucose [Mass/Vol] 160 mg/dL High 74 - 99 mg/dL [facility] Potassium [Moles/Vol] 4.5 mmol/L 3.7 - 5.1 mmol/L [facility] Protein [Mass/Vol] 6.5 g/dL 6.3 - 8.0 g/dL [facility] Sodium [Moles/Vol] 147 mmol/L High 136 - 144 mmol/L [facility] Urea nitrogen [Mass/Vol] 18 mg/dL 7 - 21 mg/dL [facility] CT CTA CHESTon 11-05-2023 CT CTA [...] Garza DO on 11/05/2023 3:07 PM Normal [facility] Comprehensive metabolic 2000 panelon 11-05-2023 Albumin [Mass/Vol] 3.9 g/dL 3.9 - 4.9 g/dL [facility] ALP [Catalytic activity/Vol] 124 U/L High 34 - 123 U/L [facility] ALT [Catalytic activity/Vol] 29 U/L 7 - 38 U/L [facility] Anion gap [Moles/Vol] 15 mmol/L 9 - 18 mmol/L [facility] AST [Catalytic activity/Vol] 18 U/L 13 - 35 U/L [facility] Bilirubin [Mass/Vol] 0.3 mg/dL 0.2 - 1 .3 mg/dL [facility] Calcium [Mass/Vol] 9.0 mg/dL 8.5 - 10. 2 mg/dL [facility] Chloride [Moles/Vol] 105 mmol/L 97 - 10 5 mmol/L [facility] CO2 [Moles/Vol] 22 mmol/L 22 - 30 mmol/L [facility] Creatinine [Mass/Vol] 0.90 mg/dL 0.58 - 0.96 mg/dL [facility] Estimated Glomerular Filtration Rate 69 mL/min/1.73m >=60 mL/min/1.7 3m [facility] Glucose [Mass/Vol] 186 mg/dL High 74 - 99 mg/dL [facility] Potassium [Moles/Vol] 4.1 mmol/L 3.7 - 5.1 mmol/L [facility] Protein [Mass/Vol] 6.4 g/dL 6.3 - 8.0 g/dL [facility] Sodium [Moles/Vol] 142 mmol/L 136 - 144 mmol/L [facility] Urea nitrogen [Mass/Vol] 12 mg/dL 7 - 21 mg/dL [facility] CBC W Auto Differential pane l (Bld)on 10-22-2023 Basophils (Bld) [#/Vol] 0.04 10*3/uL <0.11 k/uL [facility] Basophils/100 WBC (Bld) 0.3 % [facility] Differential cell count method Nom (Bld) Auto [facility] Eosinophils (Bld) [#/Vol] 0.19 10*3/uL <0.46 k/uL [facility] Eosinophils/100 WBC (Bld) 1.6 % [facility] Erythrocyte distribution width (RBC) [Ratio] 14.3 % 11.5 - 15.0 % [facility] Hematocrit (Bld) [Volume fraction] 42.8 % 36.0 - 46.0 % [facility] Hemoglobin (Bld) [Mass/Vol] 14.0 g/dL 11.5 - 15.5 g/dL [facility] Immature granulocytes (Bld) [#/Vol] 0.05 10*3/uL <0.10 k/uL [facility] Immature granulocytes/100 WBC (Bld) 0.4 % [facility] Lymphocytes (Bld) [#/Vol] 2.04 10*3/uL 1.00 - 4.00 k/uL [facility] Lymphocytes/100 WBC (Bld) 16.8 % [facility] MCH (RBC) [Entitic mass] 30.8 pg 26.0 - 34.0 pg [facility] MCHC (RBC) [Mass/Vol] 32.7 g/dL 30.5 - 36.0 g/dL [facility] MCV (RBC) [Entitic vol] 94.1 fL 80.0 - 100.0 fL [facility] Monocytes (Bld) [#/Vol] 0.54 10*3/uL <0.87 k/uL [facility] Monocytes/100 WBC (Bld) 4.4 % [facility] Neutrophils (Bld) [#/Vol] 9.30 10*3/uL High 1.45 - 7.50 k/uL [facility] Neutrophils/100 WBC (Bld) 76.5 % [facility] Nucleated RBC (Bld) [#/Vol] <0.01 k/uL [facility] Nucleated RBC/100 WBC (Bld) [Ratio] 0.0 /100 WBC [facility] Platelet mean volume (Bld) [Entitic vol] 9.7 fL 9.0 - 12.7 fL [facility] Platelets (Bld) [#/Vol] 300 10*3/uL 150 - 400 k/uL [facility] RBC (Bld) [#/Vol] 4.55 10*6/uL 3.90 - 5.20 m/uL [facility] WBC (Bld) [#/Vol] 12.16 10*3/uL High 3.70 - 11.00 k/uL [facility] Comprehensive metabolic 2000 panelon 10-22-2023 Albumin [Mass/Vol] 4.1 g/dL 3.9 - 4.9 g/dL [facility] ALP [Catalytic activity/Vol] 117 U/L 34 - 123 U/L [facility] ALT [Catalytic activity/Vol] 32 U/L 7 - 38 U/L [facility] Anion gap [Moles/Vol] 11 mmol/L 9 - 18 mmol/L [facility] AST [Catalytic activity/Vol] 17 U/L 13 - 35 U/L [facility] Bilirubin [Mass/Vol] 0.8 mg/dL 0.2 - 1 .3 mg/dL [facility] Calcium [Mass/Vol] 9.5 mg/dL 8.5 - 10. 2 mg/dL [facility] Chloride [Moles/Vol] 108 mmol/L High 97 - 10 5 mmol/L [facility] CO2 [Moles/Vol] 27 mmol/L 22 - 30 mmol/L [facility] Creatinine [Mass/Vol] 1.01 mg/dL High 0.58 - 0.96 mg/dL [facility] Estimated Glomerular Filtration Rate 61 mL/min/1.73m >=60 mL/min/1.7 3m [facility] Glucose [Mass/Vol] 130 mg/dL High 74 - 99 mg/dL [facility] Potassium [Moles/Vol] 4.2 mmol/L 3.7 - 5.1 mmol/L [facility] Protein [Mass/Vol] 6.4 g/dL 6.3 - 8.0 g/dL [facility] Sodium [Moles/Vol] 146 mmol/L High 136 - 144 mmol/L [facility] Urea nitrogen [Mass/Vol] 21 mg/dL 7 - 21 mg/dL [facility] CBC W Auto Differential pane l (Bld)on 09-20-2023 Basophils (Bld) [#/Vol] 0.04 10*3/uL Normal <0.11 [facility] Comment on above: Order Comment: Speci men Type: BLOOD SPECIMEN Ordering Facility: [facility] Address: [address] [place] [address] Performed By: #### 5 7021-8 #### [facility] CLIA [id number] [address] [place] [address] [place] Basophils/100 WBC (Bld) 0.5 % Normal [facility] Comment on above: Order Comment: Speci men Type: BLOOD SPECIMEN Ordering Facility: [facility] Address: [address] [place] [address] Performed By: #### 5 7021-8 #### [facility] CLIA [id number] [address] [place] [address] [place] Differential cell count method Nom (Bld) Auto Normal [facility] Comment on above: Order Comment: Speci men Type: BLOOD SPECIMEN Ordering Facility: [facility] Address: [address] [place] [address] Performed By: #### 5 7021-8 #### [facility] CLIA [id number] [address] [place] [address] [place] Eosinophils (Bld) [#/Vol] 0.28 10*3/uL Normal <0.46 [facility] Comment on above: Order Comment: Speci men Type: BLOOD SPECIMEN Ordering Facility: [facility] Address: [address] [place] [address] Performed By: #### 5 7021-8 #### [facility] CLIA [id number] [address] [place] [address] [place] Eosinophils/100 WBC (Bld) 3.7 % Normal [facility] Comment on above: Order Comment: Speci men Type: BLOOD SPECIMEN Ordering Facility: [facility] Address: [address] [place] [address] Performed By: #### 5 7021-8 #### [facility] CLIA [id number] [address] [place] [address] [place] Erythrocyte distribution width (RBC) [Ratio] 14.1 % Normal 11.5-15.0 [facility] Comment on above: Order Comment: Speci men Type: BLOOD SPECIMEN Ordering Facility: [facility] Address: [address] [place] [address] Performed By: #### 5 7021-8 #### [facility] CLIA [id number] [address] [place] [address] [place] Hematocrit (Bld) [Volume fraction] 46.1 % High 36.0-46.0 [facility] Comment on above: Order Comment: Speci men Type: BLOOD SPECIMEN Ordering Facility: [facility] Address: [address] [place] [address] Performed By: #### 5 7021-8 #### [facility] CLIA [id number] [address] [place] [address] [place] Hemoglobin (Bld) [Mass/Vol] 14.8 g/dL Normal 11.5-15.5 [facility] Comment on above: Order Comment: Speci men Type: BLOOD SPECIMEN Ordering Facility: [facility] Address: [address] [place] [address] Performed By: #### 5 7021-8 #### [facility] IA [id number] [address] [place] [address] [place] Immature granulocytes (Bld) [#/Vol] 0.04 10*3/uL Normal <0.10 [facility] Comment on above: Order Comment: Speci men Type: BLOOD SPECIMEN Ordering Facility: [facility] Address: [address] [place] [address] Performed By: #### 5 7021-8 #### [facility] CLIA [id number] [address] [place] [address] [place] Immature granulocytes/100 WBC (Bld) 0.5 % Normal [facility] Comment on above: Order Comment: Speci men Type: BLOOD SPECIMEN Ordering Facility: [facility] Address: [address] [place] [address] Performed By: #### 5 7021-8 #### [facility] CLIA [id number] [address] [place] [address] [place] Lymphocytes (Bld) [#/Vol] 1.63 10*3/uL Normal 1.00-4.00 [facility] Comment on above: Order Comment: Speci men Type: BLOOD SPECIMEN Ordering Facility: [facility] Address: [address] [place] [address] Performed By: #### 5 7021-8 #### [facility] CLIA [id number] [address] [place] [address] [place] Lymphocytes/100 WBC (Bld) 21.4 % Normal [facility] Comment on above: Order Comment: Speci men Type: BLOOD SPECIMEN Ordering Facility: [facility] Address: [address] [place] [address] Performed By: #### 5 7021-8 #### [facility] CLIA [id number] [address] [place] [address] [place] MCH (RBC) [Entitic mass] 31.1 pg Normal 26.0-34.0 [facility] Comment on above: Order Comment: Speci men Type: BLOOD SPECIMEN Ordering Facility: [facility] Address: [address] [place] [address] Performed By: #### 5 7021-8 #### [facility] CLIA [id number] [address] [place] [address] [place] MCHC (RBC) [Mass/Vol] 32.1 g/dL Normal 30.5-36.0 [facility] Comment on above: Order Comment: Speci men Type: BLOOD SPECIMEN Ordering Facility: [facility] Address: [address] [place] [address] Performed By: #### 5 7021-8 #### [facility] CLIA [id number] [address] [place] [address] [place] MCV (RBC) [Entitic vol] 96.8 fL Normal 80.0-100.0 [facility] Comment on above: Order Comment: Speci men Type: BLOOD SPECIMEN Ordering Facility: [facility] Address: [address] [place] [address] Performed By: #### 5 7021-8 #### [facility] CLIA [id number] [address] [place] [address] [place] Monocytes (Bld) [#/Vol] 0.52 10*3/uL Normal <0.87 [facility] Comment on above: Order Comment: Speci men Type: BLOOD SPECIMEN Ordering Facility: [facility] Address: [address] [place] [address] Performed By: #### 5 7021-8 #### [facility] CLIA [id number] [address] [place] [address] [place] Monocytes/100 WBC (Bld) 6.8 % Normal [facility] Comment on above: Order Comment: Speci men Type: BLOOD SPECIMEN Ordering Facility: [facility] Address: [address] [place] [address] Performed By: #### 5 7021-8 #### [facility] CLIA [id number] [address] [place] [address] [place] Neutrophils (Bld) [#/Vol] 5.11 10*3/uL Normal 1.45-7.50 [facility] Comment on above: Order Comment: Speci men Type: BLOOD SPECIMEN Ordering Facility: [facility] Address: [address] [place] [address] Performed By: #### 5 7021-8 #### [facility] CLIA [id number] [address] [place] [address] [place] Neutrophils/100 WBC (Bld) 67.1 % Normal [facility] Comment on above: Order Comment: Speci men Type: BLOOD SPECIMEN Ordering Facility: [facility] Address: [address] [place] [address] Performed By: #### 5 7021-8 #### [facility] CLIA [id number] [address] [place] [address] [place] Nucleated RBC (Bld) [#/Vol] 10*3/uL Normal <0.01 [facility] Comment on above: Order Comment: Speci men Type: BLOOD SPECIMEN Ordering Facility: [facility] Address: [address] [place] [address] Performed By: #### 5 7021-8 #### [facility] CLIA [id number] [address] [place] [address] [place] Nucleated RBC/100 WBC (Bld) [Ratio] 0.0 /100 WBC Normal [facility] Comment on above: Order Comment: Speci men Type: BLOOD SPECIMEN Ordering Facility: [facility] Address: [address] [place] [address] Performed By: #### 5 7021-8 #### [facility] CLIA [id number] [address] [place] [address] [place] Platelet mean volume (Bld) [Entitic vol] 10.2 fL Normal 9.0-12.7 [facility] Comment on above: Order Comment: Speci men Type: BLOOD SPECIMEN Ordering Facility: [facility] Address: [address] [place] [address] Performed By: #### 5 7021-8 #### [facility] CLIA [id number] [address] [place] [address] [place] Platelets (Bld) [#/Vol] 304 10*3/uL Normal 150-400 [facility] Comment on above: Order Comment: Speci men Type: BLOOD SPECIMEN Ordering Facility: [facility] Address: [address] [place] [address] Performed By: #### 5 7021-8 #### [facility] CLIA [id number] [address] [place] [address] [place] RBC (Bld) [#/Vol] 4.76 10*6/uL Normal 3.90-5.20 [facility] Comment on above: Order Comment: Speci men Type: BLOOD SPECIMEN Ordering Facility: [facility] Address: [address] [place] [address] Performed By: #### 5 7021-8 #### [facility] CLIA [id number] [address] [place] [address] [place] WBC (Bld) [#/Vol] 7.62 10*3/uL Normal 3.70-11.00 [facility] Comment on above: Order Comment: Speci men Type: BLOOD SPECIMEN Ordering Facility: [facility] Address: [address] [place] [address], [place] [address] Performed By: #### 5 7021-8 #### [facility] [id number] [facility] CNOVon 09-20-2023 CNOV Office Visit (PLASHL ) -- CHIQUITAPRINCESSTREVONMINAL CUTLER ([id number]) 1955 F Date Time Provider Department 09/20/23 [...] 4 weeks after surgery. Do not perform operating room orderly such as laundry and vacuuming. Do not [...] -Consult to lymphedema therapy placed. Please call [phone] to schedule, change, cancel or confirm an appointment. -Return to clinic in when CASSIDY drain meets criteria for removal, okay for home health to remove drain. -Follow up w/ Dr. Cobian in 4 weeks. -If experiencing wound complications or have any questions or concerns during business hours call [phone], option 3 or after hours (after 5 pm or on the weekend) call [phone] and ask for the plastic surgery resident / fellow air support control officer for further instructions. If you have increasing [...] Past Histories independently gathered by the clinical technical support professional and the remaining scribed note accurately describes my personal service to the patient. Referring Provider: BYRON JUNE [[id number]] Allergies As of Date: 09/20/2023 Noted Allergy [...] Other Visit (more content not included)... Normal [facility] Comprehensive metabolic 2000 panelon 09-20-2023 Albumin [Mass/Vol] 3.9 g/dL Normal 3.9-4.9 [facility] Comment on above: Order Comment: Speci kalyn Type: BLOOD SPECIMEN Ordering Facility: [facility] Address: [address] [place] [address] Performed By: #### 2 4323-8 #### [facility] CLIA [id number] [address] [place] [address] [place] ALP [Catalytic activity/Vol] 124 U/L High 34-123 [facility] Comment on above: Order Comment: Joeli kalyn Type: BLOOD SPECIMEN Ordering Facility: [facility] Address: [address] [place] [address] Performed By: #### 2 4323-8 #### [facility] CLIA [id number] [address] [place] [address] [place] ALT [Catalytic activity/Vol] 37 U/L Normal 7-38 [facility] Comment on above: Order Comment: Speci men Type: BLOOD SPECIMEN Ordering Facility: [facility] Address: [address] [place] [address] Performed By: #### 2 4323-8 #### [facility] CLIA [id number] [address] [place] [address] [place] Anion gap [Moles/Vol] 17 mmol/L Normal 9-18 [facility] Comment on above: Order Comment: Speci men Type: BLOOD SPECIMEN Ordering Facility: [facility] Address: [address] [place] [address] Performed By: #### 2 4323-8 #### [facility] CLIA [id number] [address] [place] [address] [place] AST [Catalytic activity/Vol] 31 U/L Normal 13-35 [facility] Comment on above: Order Comment: Speci men Type: BLOOD SPECIMEN Ordering Facility: [facility] Address: [address] [place] [address] Performed By: #### 2 4323-8 #### [facility] CLIA [id number] [address] [place] [address] [place] Bilirubin [Mass/Vol] 0.4 mg/dL Normal 0.2-1.3 [facility] Comment on above: Order Comment: Speci men Type: BLOOD SPECIMEN Ordering Facility: [facility] Address: [address] [place] [address] Performed By: #### 2 4323-8 #### [facility] CLIA [id number] [address] [place] [address] [place] Calcium [Mass/Vol] 9.1 mg/dL Normal 8.5-10.2 [facility] Comment on above: Order Comment: Speci men Type: BLOOD SPECIMEN Ordering Facility: [facility] Address: [address] [place] [address] Performed By: #### 2 4323-8 #### [facility] CLIA [id number] [address] [place] [address] [place] Chloride [Moles/Vol] 104 mmol/L Normal 97-105 [facility] Comment on above: Order Comment: Speci men Type: BLOOD SPECIMEN Ordering Facility: [facility] Address: [address] [place] [address] Performed By: #### 2 4323-8 #### [facility] CLIA [id number] [address] [place] [address] [place] CO2 [Moles/Vol] 21 mmol/L Low 22-30 [facility] Comment on above: Order Comment: Joeli men Type: BLOOD SPECIMEN Ordering Facility: [facility] Address: [address] [place] [address] Performed By: #### 2 4323-8 #### [facility] CLIA [id number] [address] [place] [address] [place] Creatinine [Mass/Vol] 0.82 mg/dL Normal 0.58-0.96 [facility] Comment on above: Order Comment: Speci men Type: BLOOD SPECIMEN Ordering Facility: [facility] Address: [address] [place] [address] Performed By: #### 2 4323-8 #### [facility] CLIA [id number] [address] [place] [address] [place] Creatinine and Glomerular filtration rate.predicted panel (S/P/Bld) 78 mL/min/1.73m??? Normal >=60 [facility] Comment on above: Order Comment: Joeli kalyn Type: BLOOD SPECIMEN Ordering Facility: [facility] Address: [address] [place] [address] Result Comment: Cristal mated Glomerular Filtration Rate [...] GFR. Performed By: #### 2 4323-8 #### [facility] CLIA [id number] [address] [place] [address] [place] Glucose [Mass/Vol] 117 mg/dL High 74-99 [facility] Comment on above: Order Comment: Speci men Type: BLOOD SPECIMEN Ordering Facility: [facility] Address: [address] [place] [address] Result Comment: The [place] [employer] (ADA) provides guidance for cutoff [...] Standards of Medical Care in Diabetes 2016, [place] [employer]. Diabetes Care. 2016.39(Suppl 1). Performed By: #### 2 4323-8 #### [facility] CLIA [id number] [address] [place] [address] [place] Potassium [Moles/Vol] 4.2 mmol/L Normal 3.7-5.1 [facility] Comment on above: Order Comment: Alison mccain Type: BLOOD SPECIMEN Ordering Facility: [facility] Address: [address] [place] [address] Performed By: #### 2 4323-8 #### [facility] CLIA [id number] [address] [place] [address] [place] Protein [Mass/Vol] 6.8 g/dL Normal 6.3-8.0 [facility] Comment on above: Order Comment: Alison mccain Type: BLOOD SPECIMEN Ordering Facility: [facility] Address: [address] [place] [address] Performed By: #### 2 4323-8 #### [facility] CLIA [id number] [address] [place] [address] [place] Sodium [Moles/Vol] 142 mmol/L Normal 136-144 [facility] Comment on above: Order Comment: Alison mccain Type: BLOOD SPECIMEN Ordering Facility: [facility] Address: [address] [place] [address] Performed By: #### 2 4323-8 #### [facility] CLIA [id number] [address] [place] Urea nitrogen [Mass/Vol] 9 mg/dL Normal 7-21 [facility] Comment on above: Order Comment: Alison mccain Type: BLOOD SPECIMEN Ordering Facility: [facility] Address: [address] [place] [address] Performed By: #### 2 4323-8 #### [facility] CLIA [id number] [address] [place] [address] [place] PT panel Coag (PPP)on 2023 INR Coag (PPP) [Relative time] 1.0 {INR} Normal 0.9-1.3 [facility] Comment on above: Order Comment: Alison mccain Type: BLOOD SPECIMEN Ordering Facility: [facility] Address: [address] [place] [address] Result Comment: Rosalinda min K Antagonist (VKA) Therapeutic Range: INR 2 to 3 (Target INR of 2.5) Note: For patients treated with VKA drugs, such as warfarin, the [place] [employer] 2012 Guideline recommends [...] Chest 2012, 141:7S-47S Tim RA, et al. [facility] 2017, 70: 252-289 Performed By: #### 3 4528-0 #### [facility] CLIA [id number] [address] [place] PT Coag (PPP) [Time] 10.9 s Normal 9.7-13.0 [facility] Comment on above: Order Comment: Speci men Type: BLOOD SPECIMEN Ordering Facility: [facility] Address: [address] [place] [address] Performed By: #### 3 4528-0 #### [facility] [id number] [place] [id number] [place] [facility] Natasha 09-13-2023 CNPN Telephone (AUBREYCHI) -- MINAL CAPUTO ([id number]) 1955 F Date Time Provider Department 09/13/23 STEVO OLIVA During your visit today, we recorded the following information about you: Stevo Oliva PSS 09/13/2023 1:42 PM Signed Was not [...] Encounter Status:Closed by STEVO OLIVA on 09/13/23 [facility] INJ SENTINEL NODE BREAST LEFTon 07-29-2023 [facility] US AXILLA ONLY LEFTon 2022 [facility] Activated partial thrombopla stin time (aPTT) in platelet poor plasma by coagulation aOrdered By: Janet Dillard on 02-28-2023 aPTT Coag (PPP) [Time] 27.6 s 25.1-36.5 [facility] - CoagulationOrde red By: Janet Dillard on 02-28-2023 PT Coag (PPP) [Time] 12.1 s 9.0-12.9 [facility] Platelet poor plasma interna tional normalized ratio (INR) by coagulation assay (relatOrdered By: Janet Dillard on 02-28-2023 INR Coag (PPP) [Relative time] 1.0 {INR} [facility] Comment on above: INR Therapeutic Rang [...] 02-28-2023 Platelets (Bld) [#/Vol] 304 10*3/uL 150-450 [facility] CBC AUTO DIFFon 12-11-2022 BASO # 0.0 103/ul Normal 0.0-0.1 [facility] Comment on above: Performed By: #### C BC #### [facility] [address] [address] [address] Jessica Fall Basophils/100 WBC (Bld) 0.1 % Critically low 0.2-2.0 [facility] Comment on above: Performed By: #### C BC #### [facility] [address] [place] [address] Dr. Jessica Fall EO # 0.0 103/ul Normal 0.0-0.7 [facility] Comment on above: Performed By: #### C BC #### [facility] [address] [place] [address] Dr. Jessica Fall Eosinophils/100 WBC (Bld) 0.0 % Critically low 0.9-7.0 [facility] Comment on above: Performed By: #### C BC #### [facility] [address] [place] [address] Dr. Jessica Fall Erythrocyte distribution width (RBC) [Ratio] 13.9 % Normal 11.0-15.0 [facility] Comment on above: Performed By: #### C BC #### [facility] [address] [place] [address] Dr. Jessica Fall Hematocrit (Bld) [Volume fraction] 43.5 % Normal 36.0-48.0 [facility] Comment on above: Performed By: #### C BC #### [facility] [address] [place] [address] Dr. Jessica Fall Hemoglobin (Bld) [Mass/Vol] 14.6 g/dL Normal 12.0-16.0 [facility] Comment on above: Performed By: #### C BC #### [facility] [address] [place] [address] Dr. Jessica Fall IG # 0.18 10e3/ul Critically high 0.00-0.03 [facility] Comment on above: Performed By: #### C BC #### [facility] [address] [place] [address] Dr. Jessica Fall IG % 1.0 % Critically high 0.0-0.5 [facility] Comment on above: Performed By: #### C BC #### [facility] [address] [place] [address] Dr. Jessica Fall LYMPH # 1.5 103/ul Normal 1.2-3.8 [facility] Comment on above: Performed By: #### C BC #### [facility] [address] [place] [address] Dr. Jessica Fall Lymphocytes/100 WBC (Bld) 8.3 % Critically low 20.5-60.0 [facility] Comment on above: Performed By: #### C BC #### [facility] [address] [place] [address] Dr. Jessica Fall MANUAL DIFF REQ NO Normal [facility] Comment on above: Performed By: #### C BC #### [facility] [address] [place] [address] Dr. Jessica Fall MCH (RBC) [Entitic mass] 29.6 pg Normal 26.7-34.0 [facility] Comment on above: Performed By: #### C BC #### [facility] [address] [place] [address] Dr. Jessica Fall MCHC (RBC) [Mass/Vol] 33.6 g/dL Normal 29.9-35.2 [facility] Comment on above: Performed By: #### C BC #### [facility] [address] [place] [address] Dr. Jessica Fall MCV (RBC) [Entitic vol] 88.1 fL Normal 81.0-99.0 [facility] Comment on above: Performed By: #### C BC #### [facility] [address] [place] [address] Dr. Jessica Fall MONO # 0.7 103/ul Normal 0.3-0.8 [facility] Comment on above: Performed By: #### C BC #### [facility] [address] [place] [address] Dr. Jessica Fall Monocytes/100 WBC (Bld) 3.7 % Normal 1.7-12.0 [facility] Comment on above: Performed By: #### C BC #### [facility] [address] [address] [address] Jessica Fall NEUT # 15.6 103/ul Critically high 1.4-6.5 [facility] Comment on above: Performed By: #### C BC #### [facility] [address] [address] [address] Jessica Fall Neutrophils/100 WBC (Bld) 86.9 % Critically high 43.0-75.0 [facility] Comment on above: Performed By: #### C BC #### [facility] [address] [place] [address] Dr. Jessica Fall Platelet mean volume (Bld) [Entitic vol] 9.7 fL Normal 9.5-13.5 [facility] Comment on above: Performed By: #### C BC #### [facility] [address] [place] [address] Dr. Jessica Fall PLT 372 103/ul Normal 150-450 [facility] Comment on above: Performed By: #### C BC #### [facility] [address] [place] [address] Dr. Jessica Fall RBC 4.94 106/ul Normal 4.20-5.40 [facility] Comment on above: Performed By: #### C BC #### [facility] [address] [place] [address] Dr. Jessica Fall WBC 17.9 103/ul Critically high 4.0-11.0 [facility] Comment on above: Performed By: #### C BC #### [facility] [address] [place] [address] Dr. Jessica Fall PROF CHEM 8 (BAS METB)on Anion gap [Moles/Vol] 13.8 mmol/L Normal [facility] Comment on above: Performed By: #### B MP #### [facility] [address] [place] [address] Dr. Jessica Fall Calcium [Mass/Vol] 8.8 mg/dL Normal 8.5-10.1 [facility] Comment on above: Performed By: #### B MP #### [facility] [address] [address] [address] Jessica Fall Chloride [Moles/Vol] 104 mmol/L Normal 98-107 [facility] Comment on above: Performed By: #### B MP #### [facility] [address] [address] [address] Jessica Fall CO2 [Moles/Vol] 26.5 mmol/L Normal 21.0-32.0 [facility] Comment on above: Performed By: #### B MP #### [facility] [address] [address] [address] Jessica Fall Creatinine [Mass/Vol] 0.95 mg/dL Normal 0.55-1.02 [facility] Comment on above: Performed By: #### B MP #### [facility] [address] [address] [address] Jessica Fall EGFR-AF QATARI >60 Normal >=60 [facility] Comment on above: Performed By: #### B MP #### [facility] [address] [address] [address] Jessica Fall EGFR-NON AF QATARI 58 mL/min/1.73m2 Critically low >=60 [facility] Comment on above: Performed By: #### B MP #### [facility] [address] [address] [address] Jessica Fall Glucose [Mass/Vol] 246 mg/dL Critically high 74-106 [facility] Comment on above: Performed By: #### B MP #### [facility] [address] [address] [address] Jessica Fall Potassium [Moles/Vol] 4.3 mmol/L Normal 3.5-5.1 [facility] Comment on above: Performed By: #### B MP #### [facility] [address] [address] [address] Jessica Fall Sodium [Moles/Vol] 140 mmol/L Normal 136-145 [facility] Comment on above: Performed By: #### B MP #### [facility] [address] [place] [address] Dr. Jessica Fall Urea nitrogen [Mass/Vol] 19.0 mg/dL Critically high 7.0-18.0 [facility] Comment on above: Performed By: #### B MP #### [facility] [address] [place] [address] Dr. Jessica Fall Urea nitrogen/Creatinine [Mass ratio] 20.0 mg/mg Normal [facility] Comment on above: Performed By: #### B MP #### [facility] [address] [place] [address] Dr. Jessica Fall CBC AUTO DIFFon 12-10-2022 BASO # 0.0 103/ul Normal 0.0-0.1 [facility] Comment on above: Performed By: #### C BC #### [facility] [address] [place] [address] Dr. Jessica Fall Basophils/100 WBC (Bld) 0.2 % Normal 0.2-2.0 [facility] Comment on above: Performed By: #### C BC #### [facility] [address] [place] [address] Dr. Jessica Fall EO # 0.0 103/ul Normal 0.0-0.7 [facility] Comment on above: Performed By: #### C BC #### [facility] [address] [place] [address] Dr. Jessica Fall Eosinophils/100 WBC (Bld) 0.0 % Critically low 0.9-7.0 [facility] Comment on above: Performed By: #### C BC #### [facility] [address] [place] [address] Dr. Jessica Fall Erythrocyte distribution width (RBC) [Ratio] 14.2 % Normal 11.0-15.0 [facility] Comment on above: Performed By: #### C BC #### [facility] [address] [place] [address] Dr. Jessica Fall Hematocrit (Bld) [Volume fraction] 44.9 % Normal 36.0-48.0 [facility] Comment on above: Performed By: #### C BC #### [facility] [address] [address] [address] Jessica Fall Hemoglobin (Bld) [Mass/Vol] 14.9 g/dL Normal 12.0-16.0 [facility] Comment on above: Performed By: #### C BC #### [facility] [address] [address] [address] Jessica Fall IG # 0.08 10e3/ul Critically high 0.00-0.03 [facility] Comment on above: Performed By: #### C BC #### [facility] [address] [address] [address] Jessica Fall IG % 0.8 % Critically high 0.0-0.5 [facility] Comment on above: Performed By: #### C BC #### [facility] [address] [address] [address] Jessica Fall LYMPH # 1.3 103/ul Normal 1.2-3.8 [facility] Comment on above: Performed By: #### C BC #### [facility] [address] [address] [address] Jessica Fall Lymphocytes/100 WBC (Bld) 12.1 % Critically low 20.5-60.0 [facility] Comment on above: Performed By: #### C BC #### [facility] [address] [place] [address] Dr. Jessica Fall MANUAL DIFF REQ NO Normal [facility] Comment on above: Performed By: #### C BC #### [facility] [address] [address] [address] Jessica Fall MCH (RBC) [Entitic mass] 29.7 pg Normal 26.7-34.0 [facility] Comment on above: Performed By: #### C BC #### [facility] [address] [address] [address] Jessica Fall MCHC (RBC) [Mass/Vol] 33.2 g/dL Normal 29.9-35.2 [facility] Comment on above: Performed By: #### C BC #### [facility] [address] [address] [address] Jessica Fall MCV (RBC) [Entitic vol] 89.4 fL Normal 81.0-99.0 [facility] Comment on above: Performed By: #### C BC #### [facility] [address] [address] [address] Jessica Fall MONO # 0.1 103/ul Critically low 0.3-0.8 [facility] Comment on above: Performed By: #### C BC #### [facility] [address] [address] [address] Jessica Fall Monocytes/100 WBC (Bld) 1.2 % Critically low 1.7-12.0 [facility] Comment on above: Performed By: #### C BC #### [facility] [address] [place] [address] Dr. Jessica Fall NEUT # 8.9 103/ul Critically high 1.4-6.5 [facility] Comment on above: Performed By: #### C BC #### [facility] [address] [place] [address] Dr. Jessica Fall Neutrophils/100 WBC (Bld) 85.7 % Critically high 43.0-75.0 [facility] Comment on above: Performed By: #### C BC #### [facility] [address] [place] [address] Dr. Jessica Fall Platelet mean volume (Bld) [Entitic vol] 9.8 fL Normal 9.5-13.5 [facility] Comment on above: Performed By: #### C BC #### [facility] [address] [place] [address] Dr. Jessica Fall PLT 337 103/ul Normal 150-450 [facility] Comment on above: Performed By: #### C BC #### [facility] [address] [place] [address] Dr. Jessica Fall RBC 5.02 106/ul Normal 4.20-5.40 [facility] Comment on above: Performed By: #### C BC #### [facility] [address] [place] [address] Dr. Jessica Fall WBC 10.4 103/ul Normal 4.0-11.0 [facility] Comment on above: Performed By: #### C BC #### [facility] [address] [address] [address] Jessica Fall GLYCOHEMOGLOBIN A1Con 2022 ADA RECOMMENDATION SEE BELOW Normal [facility] Comment on above: Result Comment: ADA RECOMMENDED LIMIT 4.0 - 6.0 ADA THERAPEUTIC TARGET < 7.0 ACTION SUGGESTED > 7.0 Performed By: #### A 1C #### [facility] [address] [address] [address] Jessica Fall Glucose [Mass/Vol] 134 mg/dL Normal [facility] Comment on above: Performed By: #### A 1C #### [facility] [address] [place] [address] Dr. Jessica Fall HbA1c (Bld) [Mass fraction] 6.3 % Critically high 4.5-6.2 [facility] Comment on above: Performed By: #### A 1C #### [facility] [address] [address] [address] Jessica Fall PROF CHEM 8 (BAS METB)on Anion gap [Moles/Vol] 12.8 mmol/L Normal [facility] Comment on above: Performed By: #### C BC #### [facility] [address] [place] [address] Dr. Jessica Fall Calcium [Mass/Vol] 8.8 mg/dL Normal 8.5-10.1 [facility] Comment on above: Performed By: #### C BC #### [facility] [address] [place] [address] Dr. Jessica Fall Chloride [Moles/Vol] 102 mmol/L Normal 98-107 [facility] Comment on above: Performed By: #### C BC #### [facility] [address] [place] [address] Dr. Jessica Fall CO2 [Moles/Vol] 26.2 mmol/L Normal 21.0-32.0 [facility] Comment on above: Performed By: #### C BC #### [facility] [address] [address] [address] Jessica Fall Creatinine [Mass/Vol] 1.01 mg/dL Normal 0.55-1.02 [facility] Comment on above: Performed By: #### C BC #### [facility] [address] [address] [address] Jessica Fall EGFR-AF QATARI >60 Normal >=60 [facility] Comment on above: Performed By: #### C BC #### [facility] [address] [address] [address] Jessica Fall EGFR-NON AF QATARI 55 mL/min/1.73m2 Critically low >=60 [facility] Comment on above: Performed By: #### C BC #### [facility] [address] [address] [address] Jessica Fall Glucose [Mass/Vol] 219 mg/dL Critically high 74-106 [facility] Comment on above: Performed By: #### C BC #### [facility] [address] [place] [address] Dr. Jessica Fall Potassium [Moles/Vol] 4.0 mmol/L Normal 3.5-5.1 [facility] Comment on above: Performed By: #### C BC #### [facility] [address] [address] [address] Jessica Fall Sodium [Moles/Vol] 137 mmol/L Normal 136-145 [facility] Comment on above: Performed By: #### C BC #### [facility] [address] [address] [address] Jessica Fall Urea nitrogen [Mass/Vol] 22.0 mg/dL Critically high 7.0-18.0 [facility] Comment on above: Performed By: #### C BC #### [facility] [address] [place] [address] Dr. Jessica Fall Urea nitrogen/Creatinine [Mass ratio] 21.8 mg/mg Normal [facility] Comment on above: Performed By: #### C BC #### [facility] [address] [place] [address] Dr. Jessica Fall BNPon 12-09-2022 Natriuretic peptide B (Bld) [Mass/Vol] 77.0 pg/mL Normal <=900.0 [facility] Comment on above: Performed By: #### C BC #### [facility] [address] [place] [address] Dr. Jessica Fall CBC AUTO DIFFon 12-09-2022 BASO # 0.1 103/ul Normal 0.0-0.1 [facility] Comment on above: Performed By: #### C BC #### [facility] [address] [place] [address] Dr. Jessica Fall Basophils/100 WBC (Bld) 0.5 % Normal 0.2-2.0 [facility] Comment on above: Performed By: #### C BC #### [facility] [address] [place] [address] Dr. Jessica Fall EO # 0.1 103/ul Normal 0.0-0.7 [facility] Comment on above: Performed By: #### C BC #### [facility] [address] [place] [address] Dr. Jessica Fall Eosinophils/100 WBC (Bld) 0.5 % Critically low 0.9-7.0 [facility] Comment on above: Performed By: #### C BC #### [facility] [address] [place] [address] Dr. Jessica Fall Erythrocyte distribution width (RBC) [Ratio] 14.1 % Normal 11.0-15.0 [facility] Comment on above: Performed By: #### C BC #### [facility] [address] [place] [address] Dr. Jessica Fall Hematocrit (Bld) [Volume fraction] 46.5 % Normal 36.0-48.0 [facility] Comment on above: Performed By: #### C BC #### [facility] [address] [place] [address] Dr. Jessica Fall Hemoglobin (Bld) [Mass/Vol] 15.6 g/dL Normal 12.0-16.0 [facility] Comment on above: Performed By: #### C BC #### [facility] [address] [address] [address] Jessica Fall IG # 0.07 10e3/ul Critically high 0.00-0.03 [facility] Comment on above: Performed By: #### C BC #### [facility] [address] [address] [address] Jessica Fall IG % 0.6 % Critically high 0.0-0.5 [facility] Comment on above: Performed By: #### C BC #### [facility] [address] [address] [address] Jessica Fall LYMPH # 4.5 103/ul Critically high 1.2-3.8 [facility] Comment on above: Performed By: #### C BC #### [facility] [address] [place] [address] Dr. Jessica Fall Lymphocytes/100 WBC (Bld) 40.1 % Normal 20.5-60.0 [facility] Comment on above: Performed By: #### C BC #### [facility] [address] [address] [address] Jessica Fall MANUAL DIFF REQ NO Normal [facility] Comment on above: Performed By: #### C BC #### [facility] [address] [place] [address] Dr. Jessica Fall MCH (RBC) [Entitic mass] 29.7 pg Normal 26.7-34.0 [facility] Comment on above: Performed By: #### C BC #### [facility] [address] [address] [address] Jessica Fall MCHC (RBC) [Mass/Vol] 33.5 g/dL Normal 29.9-35.2 [facility] Comment on above: Performed By: #### C BC #### [facility] [address] [address] [address] Jessica Fall MCV (RBC) [Entitic vol] 88.4 fL Normal 81.0-99.0 [facility] Comment on above: Performed By: #### C BC #### [facility] [address] [place] [address] Dr. Jessica Fall MONO # 0.8 103/ul Normal 0.3-0.8 [facility] Comment on above: Performed By: #### C BC #### [facility] [address] [address] [address] Jessica Fall Monocytes/100 WBC (Bld) 7.0 % Normal 1.7-12.0 [facility] Comment on above: Performed By: #### C BC #### [facility] [address] [place] [address] Dr. Jessica Fall NEUT # 5.8 103/ul Normal 1.4-6.5 [facility] Comment on above: Performed By: #### C BC #### [facility] [address] [place] [address] Dr. Jessica Fall Neutrophils/100 WBC (Bld) 51.3 % Normal 43.0-75.0 [facility] Comment on above: Performed By: #### C BC #### [facility] [address] [place] [address] Dr. Jessica Fall Platelet mean volume (Bld) [Entitic vol] 9.4 fL Critically low 9.5-13.5 [facility] Comment on above: Performed By: #### C BC #### [facility] [address] [place] [address] Dr. Jessica Fall PLT 354 103/ul Normal 150-450 [facility] Comment on above: Performed By: #### C BC #### [facility] [address] [place] [address] Dr. Jessica Fall RBC 5.26 106/ul Normal 4.20-5.40 [facility] Comment on above: Performed By: #### C BC #### [facility] [address] [place] [address] Dr. Jessica Fall WBC 11.3 103/ul Critically high 4.0-11.0 [facility] Comment on above: Performed By: #### C BC #### [facility] [address] [place], [place] [id number] Dr. Jessica Fall CTA CHEST WO W [...] evidence for pulmonary embolism. Electronically authenticated by: hDarmesh LOPEZ Date: 2022-12-09 21:04 Normal [facility] INFLUENZA A AND B AGon 12-09 INFLUANEGH SEE BELOW Normal [facility] Comment on above: Result Comment: Nega tive for Flu A protein angiten. Infection due to Flu A cannot be ruled out. Flu A angiten in the sample may be below the detection limit of the test. Performed By: #### D DIM #### [facility] [address] [address] [address] Jessica Fall INFLUBNEG SEE BELOW Normal [facility] Comment on above: Result Comment: Nega tive for Flu B protein antigen. Infection due to Flu B cannot be ruled out. Flu B antigen in the sample may be below the detection limit of the test. Performed By: #### D DIM #### [facility] [address] [address] [address] Jessica Fall INFLUENZA A AG Negative Normal NEGATIVE SEE COMMENT [facility] Comment on above: Performed By: #### D DIM #### [facility] [address] [place] [address] Dr. Jessica Fall INFLUENZA B AG Negative Normal NEGATIVE SEE COMMENT [facility] Comment on above: Performed By: #### D DIM #### [facility] [address] [address] [address] Jessica Fall PROF CHEM 8 (BAS METB)on Anion gap [Moles/Vol] 15.6 mmol/L Normal [facility] Comment on above: Performed By: #### C BC #### [facility] [address] [address] [address] Jessica Fall Calcium [Mass/Vol] 8.8 mg/dL Normal 8.5-10.1 [facility] Comment on above: Performed By: #### C BC #### [facility] [address] [address] [address] Jesscia Fall Chloride [Moles/Vol] 104 mmol/L Normal 98-107 [facility] Comment on above: Performed By: #### C BC #### [facility] [address] [address] [address] Jessica Fall CO2 [Moles/Vol] 26.4 mmol/L Normal 21.0-32.0 [facility] Comment on above: Performed By: #### C BC #### [facility] [address] [address] [address] Jessica Fall Creatinine [Mass/Vol] 1.15 mg/dL Critically high 0.55-1.02 [facility] Comment on above: Performed By: #### C BC #### [facility] [address] [address] [address] Jessica Fall EGFR-AF QATARI 57 mL/min/1.73m2 Critically low >=60 [facility] Comment on above: Performed By: #### C BC #### [facility] [address] [address] [address] Jessica Fall EGFR-NON AF QATARI 47 mL/min/1.73m2 Critically low >=60 [facility] Comment on above: Performed By: #### C BC #### [facility] [address] [place] [address] Dr. Jessica Fall Glucose [Mass/Vol] 126 mg/dL Critically high 74-106 [facility] Comment on above: Performed By: #### C BC #### [facility] [address] [place] [address] Dr. Jessica Fall Potassium [Moles/Vol] 4.0 mmol/L Normal 3.5-5.1 [facility] Comment on above: Performed By: #### C BC #### [facility] [address] [place] [address] Dr. Jessica Fall Sodium [Moles/Vol] 142 mmol/L Normal 136-145 [facility] Comment on above: Performed By: #### C BC #### [facility] [address] [place] [address] Dr. Jessica Fall Urea nitrogen [Mass/Vol] 25.0 mg/dL Critically high 7.0-18.0 [facility] Comment on above: Performed By: #### C BC #### [facility] [address] [place] [address] Dr. Jessica Fall Urea nitrogen/Creatinine [Mass ratio] 21.7 mg/mg Normal [facility] Comment on above: Performed By: #### C BC #### [facility] [address] [place] [address] Dr. Jessica Fall RESPIRATORY PANEL PLUSon Adenovirus Not detected Normal NOT DETECTED [facility] Comment on above: Performed By: #### R SPLUS #### [facility] [address] [place] [address] Dr. Jessica Ferrara. Parapertusis Not detected Normal NOT DETECTED [facility] Comment on above: Performed By: #### R SPLUS #### [facility] [address] [place] [address] Dr. Jessica Thomas Pertussis Not detected Normal NOT DETECTED [facility] Comment on above: Performed By: #### R SPLUS #### [facility] [address] [place] [address] Dr. Jessica Fall Chlamydia Pneumoniae Not detected Normal NOT DETECTED [facility] Comment on above: Performed By: #### R SPLUS #### [facility] [address] [place] [address] Dr. Jessica Fall Coronavirus 229E Not detected Normal NOT DETECTED [facility] Comment on above: Performed By: #### R SPLUS #### [facility] [address] [place] [address] Dr. Jessica Fall Coronavirus HKU1 Not detected Normal NOT DETECTED [facility] Comment on above: Performed By: #### R SPLUS #### [facility] [address] [place] [address] Dr. Jessica Fall Coronavirus NL63 Not detected Normal NOT DETECTED [facility] Comment on above: Performed By: #### R SPLUS #### [facility] [address] [place] [address] Dr. Jessica Fall Coronavirus OC43 Not detected Normal NOT DETECTED [facility] Comment on above: Performed By: #### R SPLUS #### [facility] [address] [place] [address] Dr. Jessica Fall Influenza A H1 Not detected Normal NOT DETECTED [facility] Comment on above: Performed By: #### R SPLUS #### [facility] [address] [place] [address] Dr. Jessica Fall Influenza A H1 2009 Not detected Normal NOT DETECTED [facility] Comment on above: Performed By: #### R SPLUS #### [facility] [address] [place] [address] Dr. Jessica Fall Influenza A H3 Not detected Normal NOT DETECTED [facility] Comment on above: Performed By: #### R SPLUS #### [facility] [address] [place] [address] Dr. Jessica Fall Influenza B Not detected Normal NOT DETECTED [facility] Comment on above: Performed By: #### R SPLUS #### [facility] [address] [place] [address] Dr. Jessica Fall Metapneumovirus Detected Abnormal NOT DETECTED [facility] Comment on above: Performed By: #### R SPLUS #### [facility] [address] [place] [address] Dr. Jessica Fall Mycoplas. Pneumoniae Not detected Normal NOT DETECTED [facility] Comment on above: Performed By: #### R SPLUS #### [facility] [address] [place] [address] Dr. Jessica Fall Parainfluenza 1 Not detected Normal NOT DETECTED [facility] Comment on above: Performed By: #### R SPLUS #### [facility] [address] [place] [address] Dr. Jessica Fall Parainfluenza 2 Not detected Normal NOT DETECTED [facility] Comment on above: Performed By: #### R SPLUS #### [facility] [address] [place] [address] Dr. Jessica Fall Parainfluenza 3 Not detected Normal NOT DETECTED [facility] Comment on above: Performed By: #### R SPLUS #### [facility] [address] [place] [address] Dr. Jessica Fall Parainfluenza 4 Not detected Normal NOT DETECTED [facility] Comment on above: Performed By: #### R SPLUS #### [facility] [address] [place] [address] Dr. Jessica Fall Rhino/Enterovirus Not detected Normal NOT DETECTED [facility] Comment on above: Performed By: #### R SPLUS #### [facility] [address] [place] [address] Dr. Jessica Fall RP2 Header 1 RESPIRATORY PANEL: VIRUSES Normal [facility] Comment on above: Performed By: #### R SPLUS #### [facility] [address] [place] [address] Dr. Jessica Fall RP2 Header 2 RESPIRATORY PANEL: BACTERIA Normal [facility] Comment on above: Performed By: #### R SPLUS #### [facility] [address] [place] [address] Dr. Jessica Fall RSV Not detected Normal NOT DETECTED [facility] Comment on above: Performed By: #### R SPLUS #### [facility] [address] [address] [address] Jessica Fall SARS-CoV-2 (COVID-19) RNA NORAH+probe Ql (Unsp spec) Not detected Normal NOT DETECTED [facility] Comment on above: Performed By: #### R SPLUS #### [facility] [address] [address] [address] Jessica Fall TROPONIN, HIGH SENSITIVITYon 12-09-2022 HSTROP 9.3 pg/mL Normal 4.0-51.3 [facility] Comment on above: Result Comment: CUT- OFF POINTS HAVE BEEN ESTABLISHED BASED ON THE FOURTH UNIVERSAL DEFINITIONS OF MYOCARDIAL INFARCTION. THE UPPER REFERENCE LIMIT (URL) OF TROPONIN, DEFINED THE 99TH PERCENTILE OF cTnI DISTRIBUTION IN A REFERENCE POPULATION, HAS BEEN CONFIRMED THE DECISION THRESHOLD FOR [place] DIAGNOSIS. Performed By: #### C BC #### [facility] [address] [address] [address] Jessica Fall XR CHEST 1 Von [...] Dharmesh LOPEZ Date: 2022-12-09 18:44 Normal [facility] COVID + FLU Quick Testingon 12-03-2022 SARS-CoV-2 (COVID-19) RNA NORAH+probe Ql (Unsp spec) Negative [facility] Other COVID + FLU Quick Testing Negative [facility] Other Urine culture routineOrdered By: DAYANNA SCHUMACHER on 08-12-2022 Bacteria identified Cx Nom (U) Escherichia coli [facility] COVID Quick Testingon 2021 Result Positive [facility] Other XR HIP GENERAL 3V PELV/AP/LA T LEFTon 03-23-2022 [facility] XR Pelvis and Hip - left AP and Lateral frogon 03-23-2022 IMPRESSION: No appreciable change in the advanced left hip degenerative arthritis. Cryptographic Clerk: BEA Transcribe Date/Time: Mar 23 2022 4:32P Dictated [...] and marginal osteophytes. No other significant abnormality. [id number] E_DIVISION OF RADIOLOGY Provider, Kaylene uLx [facility] - 03/23/2022 * * *Final Report* * [...] in the advanced left hip degenerative arthritis. Cryptographic Clerk: BEA Transcribe Date/Time: Mar 23 2022 4:32P Dictated by : LESA LESTER MD This examination was interpreted and the report reviewed and electronically signed by: LESA LESTER MD on Mar 23 2022 4:34PM EST [facility] Radiology Study observation (narrative) [facility] XR Pelvis and Hip - left AP and Lateral frogOrdered By: Ccf Provider on 03-23-2022 [facility] CARDIAC JALEEL 3-6on 2 CK [Catalytic activity/Vol] 57 U/L Normal 26-192 [facility] Comment on above: Performed By: #### C BC #### [facility] [address] [address] [address] Jessica Fall CK.MB [Mass/Vol] 0.63 ng/mL Normal <=3.60 [facility] Comment on above: Performed By: #### C BC #### [facility] [address] [address] [address] Jessica Fall HSTROP 9.7 pg/mL Normal 4.0-51.3 [facility] Comment on above: Result Comment: CUT- OFF POINTS HAVE BEEN ESTABLISHED BASED ON THE FOURTH UNIVERSAL DEFINITIONS OF MYOCARDIAL INFARCTION. THE UPPER REFERENCE LIMIT (URL) OF TROPONIN, DEFINED THE 99TH PERCENTILE OF cTnI DISTRIBUTION IN A REFERENCE POPULATION, HAS BEEN CONFIRMED THE DECISION THRESHOLD FOR [place] DIAGNOSIS. Performed By: #### C BC #### [facility] [address] [address] [address] CSPINE WO CONon [...] CHRISTINE AVILES Date: 2022-03-14 01:54 Normal [facility] CT HEAD WO CONon 03-14-2022 CT [...] acute intracranial abnormality. Electronically authenticated by: Palomo ARM Date: 2022-03-14 03:31 Normal [facility] CT TSPINE WO CONon 2 CT [...] by: RAKESH SOLARES Date: 2022-03-14 03:40 Normal [facility] CTA CHEST WO W CONon 022 [...] GABBY GREY Date: 2022-03-13 22:22 Normal [facility] Covid-19 PCR (CVDTB)on 02-24 SARS-CoV-2 (COVID-19) RNA NORAH+probe Ql (Unsp spec) Not detected Normal NOT DETECTED [facility] Comment on above: Result Comment: When [...] for this test is supported by the [place] of Health and Human Service's declaration that [...] longer be used). Performed By: #### [facility] #### [facility] [address] [place] [address] Dr. Jessica Fall BNPon 03-13-2022 Natriuretic peptide B (Bld) [Mass/Vol] 87.0 pg/mL Normal <=900.0 [facility] Comment on above: Performed By: #### C MP, BNP, HSTROPN #### [facility] [address] [place] [address] Dr. Jessica Fall CARDIAC JALEEL 3-6on 2 CK [Catalytic activity/Vol] 61 U/L Normal 26-192 [facility] Comment on above: Performed By: #### D DIM #### [facility] [address] [place] [address] Dr. Jessica Fall CK.MB [Mass/Vol] 0.57 ng/mL Normal <=3.60 [facility] Comment on above: Performed By: #### D DIM #### [facility] [address] [place] [address] Dr. Jessica Fall HSTROP 8.9 pg/mL Normal 4.0-51.3 [facility] Comment on above: Result Comment: CUT- OFF POINTS HAVE BEEN ESTABLISHED BASED ON THE FOURTH UNIVERSAL DEFINITIONS OF MYOCARDIAL INFARCTION. THE UPPER REFERENCE LIMIT (URL) OF TROPONIN, DEFINED THE 99TH PERCENTILE OF cTnI DISTRIBUTION IN A REFERENCE POPULATION, HAS BEEN CONFIRMED THE DECISION THRESHOLD FOR [place] DIAGNOSIS. Performed By: #### D DIM #### [facility] [address] [place] [address] Dr. Jessica Fall CBC AUTO DIFFon 03-13-2022 BASO # 0.1 103/ul Normal 0.0-0.1 [facility] Comment on above: Performed By: #### C BC #### [facility] [address] [place] [address] Dr. Jessica Fall Basophils/100 WBC (Bld) 0.6 % Normal 0.2-2.0 [facility] Comment on above: Performed By: #### C BC #### [facility] [address] [place] [address] Dr. Jessica Fall EO # 0.2 103/ul Normal 0.0-0.7 [facility] Comment on above: Performed By: #### C BC #### [facility] [address] [place] [address] Dr. Jessica Fall Eosinophils/100 WBC (Bld) 2.6 % Normal 0.9-7.0 [facility] Comment on above: Performed By: #### C BC #### [facility] [address] [place] [address] Dr. Jessica Fall Erythrocyte distribution width (RBC) [Ratio] 13.3 % Normal 11.0-15.0 [facility] Comment on above: Performed By: #### C BC #### [facility] [address] [place] [address] Dr. Jessica Fall Hematocrit (Bld) [Volume fraction] 44.1 % Normal 36.0-48.0 [facility] Comment on above: Performed By: #### C BC #### [facility] [address] [place] [address] Dr. Jessica Fall Hemoglobin (Bld) [Mass/Vol] 14.6 g/dL Normal 12.0-16.0 [facility] Comment on above: Performed By: #### C BC #### [facility] [address] [place] [address] Dr. Jessica Fall IG # 0.02 10e3/ul Normal 0.00-0.03 [facility] Comment on above: Performed By: #### C BC #### [facility] [address] [place] [address] Dr. Jessica Fall IG % 0.2 % Normal 0.0-0.5 [facility] Comment on above: Performed By: #### C BC #### [facility] [address] [place] [address] Dr. Jessica Fall LYMPH # 2.5 103/ul Normal 1.2-3.8 [facility] Comment on above: Performed By: #### C BC #### [facility] [address] [place] [address] Dr. Jessica Fall Lymphocytes/100 WBC (Bld) 28.8 % Normal 20.5-60.0 [facility] Comment on above: Performed By: #### C BC #### [facility] [address] [place] [address] Dr. Jessica Fall MANUAL DIFF REQ NO Normal [facility] Comment on above: Performed By: #### C BC #### [facility] [address] [place] [address] Dr. Jessica Fall MCH (RBC) [Entitic mass] 30.2 pg Normal 26.7-34.0 [facility] Comment on above: Performed By: #### C BC #### [facility] [address] [place] [address] Dr. Jessica Flal MCHC (RBC) [Mass/Vol] 33.1 g/dL Normal 29.9-35.2 [facility] Comment on above: Performed By: #### C BC #### [facility] [address] [place] [address] Dr. Jessica Fall MCV (RBC) [Entitic vol] 91.1 fL Normal 81.0-99.0 [facility] Comment on above: Performed By: #### C BC #### [facility] [address] [place] [address] Dr. Jessica Fall MONO # 0.8 103/ul Normal 0.3-0.8 [facility] Comment on above: Performed By: #### C BC #### [facility] [address] [place] [address] Dr. Jessica Fall Monocytes/100 WBC (Bld) 8.8 % Normal 1.7-12.0 [facility] Comment on above: Performed By: #### C BC #### [facility] [address] [place] [address] Dr. Jessica Fall NEUT # 5.2 103/ul Normal 1.4-6.5 [facility] Comment on above: Performed By: #### C BC #### [facility] [address] [place] [address] Dr. Jessica Fall Neutrophils/100 WBC (Bld) 59.0 % Normal 43.0-75.0 [facility] Comment on above: Performed By: #### C BC #### [facility] [address] [place] [address] Dr. Jessica Fall Platelet mean volume (Bld) [Entitic vol] 10.1 fL Normal 9.5-13.5 [facility] Comment on above: Performed By: #### C BC #### [facility] [address] [place] [address] Dr. Jessica Fall PLT 301 103/ul Normal 150-450 [facility] Comment on above: Performed By: #### C BC #### [facility] [address] [place] [address] Dr. Jessica Fall RBC 4.84 106/ul Normal 4.20-5.40 [facility] Comment on above: Performed By: #### C BC #### [facility] [address] [place] [address] Dr. Jessica Fall WBC 8.8 103/ul Normal 4.0-11.0 [facility] Comment on above: Performed By: #### C BC #### [facility] [address] [place] [address] Dr. Jessica Fall D-DIMERon 03-13-2022 D-DIMER 0.82 mg/L FEU Critically high <=0.59 [facility] Comment on above: Performed By: #### D DIM #### [facility] [address] [place] [address] Dr. Jessica Fall D-DIMER COMMENTS SEE BELOW Normal [facility] Comment on above: Result Comment: Incr eases [...] hospitalization. Performed By: #### D DIM #### [facility] [address] [place] [address] Dr. Jessica Fall PROF 14(COMP METB)on 022 Albumin [Mass/Vol] 3.7 g/dL Normal 3.4-5.0 [facility] Comment on above: Performed By: #### C MP, BNP, HSTROPN #### [facility] [address] [place] [address] Dr. Jessica Fall Albumin/Globulin [Mass ratio] 1.1 {ratio} Normal [facility] Comment on above: Performed By: #### C MP, BNP, HSTROPN #### [facility] [address] [place] [address] Dr. Jessica Fall ALP [Catalytic activity/Vol] 94 U/L Normal 46-116 [facility] Comment on above: Performed By: #### C MP, BNP, HSTROPN #### [facility] [address] [place] [address] Dr. Jessica Fall ALT [Catalytic activity/Vol] 50 U/L Normal 14-59 [facility] Comment on above: Performed By: #### C MP, BNP, HSTROPN #### [facility] [address] [place] [address] Dr. Jessica Fall Anion gap [Moles/Vol] 14.1 mmol/L Normal [facility] Comment on above: Performed By: #### C MP, BNP, HSTROPN #### [facility] [address] [place] [address] Dr. Jessica Fall AST [Catalytic activity/Vol] 18 U/L Normal 15-37 [facility] Comment on above: Performed By: #### C MP, BNP, HSTROPN #### [facility] [address] [place] [address] Dr. Jessica Fall Bilirubin [Mass/Vol] 0.4 mg/dL Normal 0.2-1.0 [facility] Comment on above: Performed By: #### C MP, BNP, HSTROPN #### [facility] [address] [place] [address] Dr. Jessica Fall Calcium [Mass/Vol] 9.0 mg/dL Normal 8.5-10.1 [facility] Comment on above: Performed By: #### C MP, BNP, HSTROPN #### [facility] [address] [address] [address] Jessica Fall Chloride [Moles/Vol] 103 mmol/L Normal 98-107 [facility] Comment on above: Performed By: #### C MP, BNP, HSTROPN #### [facility] [address] [place] [address] Dr. Jessica Fall CO2 [Moles/Vol] 26.7 mmol/L Normal 21.0-32.0 [facility] Comment on above: Performed By: #### C MP, BNP, HSTROPN #### [facility] [address] [place] [address] Dr. Jessica Fall Creatinine [Mass/Vol] 1.17 mg/dL Critically high 0.55-1.02 [facility] Comment on above: Performed By: #### C MP, BNP, HSTROPN #### [facility] [address] [place] [address] Dr. Jessica Fall EGFR-AF QATARI 56 mL/min/1.73m2 Critically low >=60 [facility] Comment on above: Performed By: #### C MP, BNP, HSTROPN #### [facility] [address] [place] [address] Dr. Jessica Fall EGFR-NON AF QATARI 46 mL/min/1.73m2 Critically low >=60 [facility] Comment on above: Performed By: #### C MP, BNP, HSTROPN #### [facility] [address] [place] [address] Dr. Jessica Fall Globulin (S) [Mass/Vol] 3.4 g/dL Normal [facility] Comment on above: Performed By: #### C MP, BNP, HSTROPN #### [facility] [address] [place] [address] Dr. Jessica Fall Glucose [Mass/Vol] 132 mg/dL Critically high 74-106 [facility] Comment on above: Performed By: #### C MP, BNP, HSTROPN #### [facility] [address] [address] [address] Jessica Fall Potassium [Moles/Vol] 3.8 mmol/L Normal 3.5-5.1 [facility] Comment on above: Performed By: #### C MP, BNP, HSTROPN #### [facility] [address] [place] [address] Dr. Jessica Fall Protein [Mass/Vol] 7.1 g/dL Normal 6.4-8.2 [facility] Comment on above: Performed By: #### C MP, BNP, HSTROPN #### [facility] [address] [place] [address] Dr. Jessica Fall Sodium [Moles/Vol] 140 mmol/L Normal 136-145 [facility] Comment on above: Performed By: #### C MP, BNP, HSTROPN #### [facility] [address] [place] [address] Dr. Jessica Fall Urea nitrogen [Mass/Vol] 17.0 mg/dL Normal 7.0-18.0 [facility] Comment on above: Performed By: #### C MP, BNP, HSTROPN #### [facility] [address] [place] [address] Dr. Jessica Fall Urea nitrogen/Creatinine [Mass ratio] 14.5 mg/mg Normal [facility] Comment on above: Performed By: #### C MP, BNP, HSTROPN #### [facility] [address] [place] [address] Dr. Jessica Fall TROPONIN, HIGH SENSITIVITYon 03-13-2022 HSTROP 8.1 pg/mL Normal 4.0-51.3 [facility] Comment on above: Result Comment: CUT- OFF POINTS HAVE BEEN ESTABLISHED BASED ON THE FOURTH UNIVERSAL DEFINITIONS OF MYOCARDIAL INFARCTION. THE UPPER REFERENCE LIMIT (URL) OF TROPONIN, DEFINED THE 99TH PERCENTILE OF cTnI DISTRIBUTION IN A REFERENCE POPULATION, HAS BEEN CONFIRMED THE DECISION THRESHOLD FOR [place] DIAGNOSIS. Performed By: #### C MP, BNP, HSTROPN #### [facility] [address] [place] [address] Dr. Jessica Fall XR CHEST 1 Von [...] CRISTINA FARIAS Date: 2022-03-13 19:44 Normal [facility] SCREENING MAMMOGRAM W/SULMA, BILATERAL*on 02-08-2022 SCREENING [...] Visible on only one projection. Asymmetries that turn laster to be summation artifact are benign (BI-RADS 2). The [employer] [place] offers guidance regarding the other categories of [...] VERY IMPORTANT TO YOUR HEALTH. THE CURRENT [employer]LEGE OF RADIOLOGY AND NATIONAL COMPREHENSIVE CANCER NETWORK GUIDELINES RECOMMENDS ANNUAL MAMMOGRAPHY BEGINNING AT AGE 39 THIS FACILITY USES A REMINDER SYSTEM TO ENSURE ALL PATIENTS RECEIVE REMINDER NOTIFICATIONS AT THE APPROPRIATE TIME BASED ON THE RECOMMENDATIONS OF THIS EXAM. Report reported and signed by Crow Tompkins on 02/09/2022 0728 Normal [facility] Specialist XR Chest 2 Views*on 08-24-20 21 XR [...] by Crow Tompkins on 08/28/2021 0724 Normal [facility] Specialist XR Hip Complete Left*on 07-28 [...] by Crow Tompkins on 08/28/2021 0727 Normal [facility]ist Reminderson 08-02-2021 Reminders - From: Jeannie Patten To: Yessi Brown; Sent: 07/03/2021 12:02:12 EST Show up: 07/17/2021 12:01:00 EST Subject: Reminder Message Reminder Message Please Remember to:_ PATIENT RELATED REMINDER:_ ( X ) Call Patient to schedule Renal US prior to next appointment at [facility] (08/02/2021) ( ) Ask Patient to ( ) Call Relative ( ) Schedule Patient ( ) Follow up on Results ( ) Other: PROVIDER RELATED REMINDER:_ ( ) 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 CD:[id number] Gh0bWw +PGhlYWQ+CO4ZIPQvN19ljLKij I6CE2hTVO8IQUPNGLJCLI4KYY9 rrNI6GMdgF6XgooLj ZmnabEAtHQ31TEw2ZSF6mGwxSV ybsG7boWHsK3c0FwNrTV47jZ49 KLjkMCStIgI7ZvVwdzwwoOIm C3kyIaCubPGtJby+PHRhYmxlIH dnJPQjCYuhPGMpJgJchQhtQA8b Si1dFXQhGEAylKqylBWmWkRu c6faYRZwFKgrNO0pwYzjS4AkjV A5NGXci8s6Sc21bFN+PHRkIHN0 sQmsDEyii404PaUgf8hdYWB2 lASjWTwrHUX5E36ce3G8PMLeHQ TiDOA6lYI2nG5giKpxfbxuD2Ju mBYnVzR4AVR7bZYocY1hgBfq hqgoeI0vLla+N59YCO0RUUEBSP 4RXpi5N7YkIklzzAN+PT02MCSc QQ27zLKsgXMzs2fdwXc8OxJt KTLaIDM7sLeiSWmmv6TbPOZnP8 4bbLZpf2Y7QSVsmIutaQAhApTp nYE6zI3xJEfqjukbw1esvljb Nyegl8qrsi83oO34N83nRMycBE UgSIX2RGOiUDMftVcuui2xdA0e Ii8+PAblv7sui1haxIf0BbYn VXYsrkZuwDtmMUM7n9TpZs52D4 WxsVqdq5UcPuw8gx48kFTxq2O0 eLH8HRuaUAWjgX8iNLmrOvK5 LYIfFdQetC13kJVxFFftWh4ncH aadQfzPH3xLEKcsokeYBRagU4o CUFdaOAnfMtbWD8kIFBxlkho s781HjXwFOW4ZISyaDKbL9LseS 4dAyMhPSFwTZAaQ0KdhCGkVGtn J175RUszHeC7PQMkarReJ2Sk YNNkpGtjNcH0l1F4Vb6Eh0Wxoe ojFSL6ZEsoXNXcDhJdRmYgMgB1 L3CbNxg7XERxuTbgFD3uM8Xo GPUqvgnazmuvzIQ4FFTyPTNelQ 51qKFaEQzsNm7xu0T8r702CMMt BOQywM20Nb9rvSqqZYSxxSCK kE3dwddxf0svncyjInBwCULzIC p9LTj4ISLstGqhJrFjLBQ7BkU1 QRF5gXKpfW5geWriuccspU3w Oyc+Z70jrP4zCEN0TTZ5bhdbKX SdxuBeND22RP17R3HuKwkfzYMv bGU+VCBwqeJidAooWC3cIeWb z3mho6QqHMljA0HpEUVtUEaqIi f6HMVvURK1lDT1jB5sUMVwRMhw p6K7tPQ0C7KbpbPyjh2ye0ir QGRtNCjiR62ynTHsg3X8TTAqlH V3ATLcfAeyVnIxkF84Fhc+PGNv eMnab3LhRimvl5vqa4benDj2 ZaHnGWMqwbIiwBwvJER6s8YoYs 63H97oSQcgFTEiRJUsAVJrAYGc tRetuz0pdZ3eTq2+PGNvbCB3 qAJ2yB8yEEUzPnT6DQepS804Hw UinUJoLjxxv2zjm4kgyUo1MlTs GROedfTtcPcmNXJ9c6UkRm71 D96oIBvyVRQdFTHpHIJnRIAliM evml8iuR9uRt3+QS9as4sgbc47 dD63wXD+GCIoHDV8jGztXYmy RVUnbY8hNBwmVzU2PMAiAdAbbB 20pWChHIclCo7bbQmqnPgsIQ2p EGMsrhzqp332WhYpd6mhAHKe bDKkNZkrYLU3N16mt2P9RHWeNK ZxTTX4dYI9vZ2mqQemtfvccTHu iRtkldJxcIerDUkpYJpsP833 IHRvcDsnPlBhdGllbnQgTmFtZT s6E8CcTkc4KPDvtVqlIK4bhQKz IXeuOd8roEdgnAydJC8fZRVd cuied147NeGvd3ekMPMcjHTpGG kzPDH3H40xv7Y1NVTuODVlXFU9 gZI0sX0ecWjmrlkkqUOjbJxo loDneJxgKDreIHuzX046TZXixA kgAqUjetGpJYIleSJ0AA34FR02 tNHtw2N5mUB0C6MoRTVlmfxw cheuuZC0KXJvBVEcfE31Ch8jkK hrBj6lYIQjMLQ0KEApmOQrE8Nq sI0pGeCbHFTbDJVaB5MfuJKp ZAvfJ542PBoyEvM3PDNpttVoI7 FuVBKrhRxlIiS1f0Y3Dj7DZ3O6 JV05YB60iSQfq1F2sZB9J8Ec MVXwugmdagxwyMB4QYVkLMQfnH 52Ws9auItbUd3zRVHaVNP4WKIj qALpP7AjaV6gFtKwXMTuZIFr M4BmbWWnDBxeV684UJtuXfO2YB YfneUsF2BgTEGjdFnpKvK9g1Z5 Rd7EJKz9ZI05QD18wMUbq5H4 fBV5L6RjQBOttjzykeihmIU5AF GmETNoiE89Jk2pzGtsCu2sIXRs FDO5ZXAcvVDgI0RabD4aZjMx CDVyUHSpC8WwuKGbSAdsF881FL thKcG4EHSobrHvV8KzIZGhdUhp YfN4p3P0Ku4RBCYkVZ64FSA6 tCN7XH42UQ85N6IuXrqkcYItcU U+PHRhYmxlIHdpZHRoPScxMDAl LzFhdWtvDJ1jUv8uPNKoSHLw bYzueHMpDxOng4lcHEPoEYyhTV 6kxIufB3UdzWH7ZNIrh3x7Ic59 X13zW2FdbTT+QCVdeRB0jBL0 iF1vHkWaUwZ9URwzB438UaAnnX LqHxpfv3vnb9rybBh6MlA9KGKg iyQqkXakQBZ3z5CjSb62P97r IHdpZHRoPSIxNSUiIHZhbGlnbj 9cdS4rLr8+FGMysDE4cFC2yR3b SfPpOjI0JZbwE930KgNhqBKy Kdmre7une2zpsZm3GrYsLXYpmn SagCvpLDF9e5RpCd56W1HlwCoc f7IwKnm7zq17rPBlw7T8dHK5 G6WsRYSrbinmqXZsuBrsQJ7iQM GcvylzIIPvmB0eEHDhP6u6UyRc WxP8KNmvO5AracT5RGWvtMTn ANlyOEE9J42wm4D4OKBpLBRePV C8oLX3sJ6xeOfrluzdjSVrqGlr axQsmDhlLHtuRGwrK217NHYw lPliUEJbcS0oABTxqAJfcPwaUH 4wNTBpbjsnPldPTExFTlNMRUdF TCwgRElBTkEgSjwvdGQ+PHRk NGD9aZgsEAfiTGNuvD3oZEDcY2 n2SgDsIlG9OWbhV0McCHAgmlvi Ax03kE0uCjFqRcJ1XCeeT0Gd liO6XOKtfIMqKEnaSGJ3U95mm0 K1CSGqGANgYQK7sGT5sU8cgPxe bjogbGVmdDsgdmVydGljYWwt TOtlA366KHXhnIbcZdYzWrDuXg G4WPT0G2IwEkf4HWYvtKliKU1f mORwIItvTw9keKpgrWlbLI2j UJYssjvqEYTugI8bCIUwhNEmzU dmWP0wZYNsssbvu894NiVvTOW9 MURhtXKcT9ScyC6uOuQxLKXu ATDmA8JdqEZcXAafP403DHexAt L5DGZjinZgK5IhYPMktDrsFcS6 p7E1Lf31XfDGHAVpkjiamNL+ RUQyXXK4aXekSUeeGPFapE1fEY IhP8p9KeJbHuB1KFcwD9KnRWXk ahthWp33zX7yMkBdEeA9KAwo D9YoasI4KDYppGXvSFmjAOR3Z9 6yo2I4ATJwIRVcRMU7eJL8lG1e bGlnbjogbGVmdDsgdmVydGlj TCchTNcrG651DLJqaTetGdSczE FsZTwvdGQ+ZRYxBNT4qXetEQho GZGlyL3sJHKhD9k5InQbXjL1 YGruX9DkPWGyavruEa36fZ1qJf VmXnZ8ZEkgJ4WocwK6PLSfnJDx WGqkLVM7C64cb4H1NFMtCEMj JVQ7sZR5kJ1oxCkfjitnyZSheF cmigZvsKllQHcpABmzA334POKt xTfsFt1mu6DsocL0fF3mMT09 PP15Z7FoUclhmXVbyLW+PHRhYm xlIHdpZHRoPScxMDAlJyBzdHls SL1kOl0eNEQoBPXplWjtpJWp NoGpt4giPGFiNRjjZY5lqUzeG6 GxwFI4GHDah4j6Ur52S63zE2Mu dXA+FZRcoAQ9rVT8iF0jXbVo RoY1BSmoS858PoTpkXVyGhzph4 uco6zyzPg5UfNsVQQyccAchXxb MUH8a7HkXc42I83vTHajDMCm YGRvRBRnIAYxlWvqwf3hgT3oPd 8+OUDixOT3kAV3dE6dRjEjOvO7 JUauG008CtAuxFBiSaeuI65k O8JyhZO+XEZuNhl6SGMggTlqYX 7fcKQbAUsiDi7bXOL6UnJqPaJe IYhiF6MmDQXviwipgbvedTY3 SPGkHLGtwS79Zb3poKneFr0jVB ObMUY8OTZniOElT2VfeY5kGlSv XCAsZABbU7LofAMiFBztI056 UGwnQyJ7UYNlqzCtC0OkKJAmvC olPqA0j6P2Yd1RgAkqnBJhGS7l XdVpIPt4X7QbLdm6YJUjjKbw UW6dmIRaCImcFm9seKuxxSqiTB 0aWBDqymlba448OaMdh2cpDPFc bPTuNQwlZSZ3X98yn5S9GFDh QEHtESA5jZN4jY4xnXbyorrimC NxiQmqpeLfpWrtBSkjIOuiG506 OVDppReqQzMWBwo7B6WjQqa7 FUAjkBroKR4yvQDrRHbqVp2seJ zpaIqcYF2oQTQtxfkyk309FkSz i9umNKJkrQWaRTutEXC6T23x z8V4QVDtPIEyUPH8eAU6qX5mpT lnbjogbGVmdDsgdmVydGljYWwt SGhjK265FPNvpYatAw9PQxl5 V9YoWmz8KWSwvQmiNO5oyNMpUF seUk2fgIzefDpuQZ0yKKXrhhku i287RpMhf8ccYORtgRZsKUow UAH4C12ng8C0KFQuJOJqDSY1gX N8sF0xpJlbymyxzSPldTgdmxYp bStbABsgMIdnY517WPKjeElw PlBheWVyOjwvdGQ+AN29zq72L5 MxHkdpJnt0CJEqCGC2nDP4sB0u ODZqAQdaq2R9uQD9N3IaqhKf ci1j (more content not included)... Normal [facility] Coding Summary. CD:[id number] Gh0bWw +PGhlYWQ+RZ6NERFeV00gnLPbz A3QL8sVFA2CRLSAUKSBUG7AWG4 ycGV8OPhiJ3QunuLp JiktlOHdHT02PZw1CEC9iHtlSU ziyT0qsRUoD2x4JtViYN68fV55 QTfsEBJfTpE7EjOwqjospETt E1zrOwPjaDNiGtb+PHRhYmxlIH skEWNiWFhxABAhZuVfwCrtBU6c Og3qAJAlWLWcsKlweNXvAnVh l9nsOGSvUFlpBG0qlGaaF8YdpI I7GNDuo7b5Mg28jTQ+PHRkIHN0 iBfbRKxgh202SgHqh7tlQIG5 jNVgAMmwQGA6H66iw4C2LPVdIN WfNWG1kTP7fQ7vpYtrvmzkN6Ns mFJvFrE4QJH0eSOlqT1ddNpk ghfajH8xLho+H22RUV3BMIWHUC 4XSde2V3ZxHnohxAO+HM37TQXl DC02dLGtpBMci9cadUd5WyDh RVLkUDR4cRhoPMgbf3LpQSXgT6 6hpEVas2S9MGWqfYfquZSiHxUk rHN2qJ5zCNccqbesu7otjkmy Huyjb7sqte49tJ13M61qVLzqHZ KaBNL4OHRpEHGlpIumox5ftX6d Ii8+STpzh7xsu8veaQs7WgAk PEFawcHtxMfbHBW6l9PkGb11K2 WlpIyyy0YdQvh1qi61iUWmp6F8 nZJ3NTzxVARftZ5gZJvcJpH5 GIDxLkUcbI28qMSaBYbzSy9ilP dxpPtlEF5aSJYusqppKBTgsF9s IPFdnMUjtOzaSI6nSBIiqyan c858TzTlLNB2PXJihLQjI9PixE 8pJyIgJJLjYIQbR5UmyKSxTZzg V601OVclRyL1NZSijlAmT1Wj ZRMnnGulAkP6x1I7Ka1Ov6Uwin bmZVQ7WMtuOXUbReX4UkPdNkV0 R2BqKbs3XKMdpYgwSX8rD2Xa KDYauaurfjqrjLF8CUHtCJTmoI 80vVEmCSweYm5xc9T7d955XJNk ECDxcG89Vn8isTpbFCVumJTN oC8jtbkji0rlamllDsGyGCGvDU c9JXo7WQIpqKxqOeFkJNO4BkR7 QOV7xWPgkY4piJtrguqakZ2e Oyc+D62ufU9iCZH1WRF6moexBU SfcvWrPE55JR83L4YiTgnxpCIi bGU+IVJyavOdmAtmAY7dSiMm z7rjs8XxYEuzL5OjIZTnBQsoDk u8SMDkLEI1xDJ5xB2rFANnJSye c1A5oRR4B2GwoeBhrn6zi7go NAYxCQnlN97sqYIna8Z7JIOwfS F5XWBlcOesJoUktZ59Imj+PGNv oKbmw0IrPzzta2nov8cjwRp4 DdBfJPHqgsCnvRvwQHH9t2RaIo 45O49yYOviHXWnNLCpOIHpAMRt xSalxf1iwP1sMo3+PGNvbCB3 rYV0vQ5zINQrLhV8CLjeC744Jy MdxSDtJxyip2ywd5twyQj9CvMh XEUgauVyrInvBGH6x4LzIz79 M10hTGnyDJGhNUJwOOObFHGeoA zovv7frZ8tHu3+JX1xy4hoyp48 fZ04jPH+LIFoLBS4qTxiZDvf IZGvnK1sRVztOnV9EXShRcWvlC 17yJHySNrwHn0cpYnlrTghSU9g AVIhmobtu594YuEse4spGIBv fCNeIJndCBR6A17fu6J7LKZtGN KyAIS9mOA7gM7apMfuwwavlCUu bWcrgwAivTyxWIbnNQuaI279 IHRvcDsnPlBhdGllbnQgTmFtZT r2T4LhIhb5BVNglGegUD8mnHIy ZIbxCk5rnOquzJzcGR6wLHAc pzrcx514PmHpb7vhCHCemGBbZH vzPGT4N06om2E1MTJrIXPeUOF9 mDS8uB6agJczeermrFJraTnq xdFykLluJRdvAEqfX139FJRclP buPoOjvqJmPFMctFC0CH46NQ28 sUDkz0U9cLG5E6TaBBYtrkia rsgoiFY7HZAbWXXtiG39Wc7csT srKv9hEBXxRCL8QOAqqSRqW8La sE4qSuFdDXPwCVVnG5ZrbRRp QDyeL946AZgbDqX4MMQhrrPkC1 PhAYCmbIqhChK9c3J2Wh2ZP7T1 DF61NR11bVHtm8J0uWU1A7Ap ONEbrlccntrmxET5RMVxFWZceA 55Tq3yxQwuUg3tJLTnBJK1CAEh rMTtX4UucL4pPuEcTZQwTFUr K7MyxAPeVQjtQ317EBbrQmJ9EI EpyrAnC6PpWXNcyApfBhI0u8I1 Le8DAOq7NG98IS65qWJpd3U8 bMF9Z2UbYBXgyvakqjgpzRK0WC HtLXLyvO77Cd6biWtpKw7xRUVg WMS1QQZufQWsP1TctW7eEaDp JCAxUPKuK7EwlXNbLCapW428OZ ttCdA5LPKjxcWgG5DgHGJcrDxr FeF7w6A7Db8MISNdML04YCN5 oLO5ZS22NS03Q6LyGpxilDWvvB U+PHRhYmxlIHdpZHRoPScxMDAl JaXutAntWR9jXf2jEIJiYQNy jNnvkABoUoHjg1roFNMmLBslDN 2wfFeqT4BlmVI6ULGqf4g5Fk17 M87mG2XuoUE+YWInjCE8iZV1 rC3mDpIfXkW6NWaqW953JlWubM VfHuffc9sxy4eeoEj5NeO4GVFb fiJtxQfjIGD2j4GmEt72S28u IHdpZHRoPSIxNSUiIHZhbGlnbj 6ttY5uEk2+OJRuyEL2zII6sE8f KoVzBsW7UAfmQ215HaGfnOJg Yycto6ihl7mggVa1AuJcSINage AebLtwYND1o2UsPz02V6NjlClp c7RfMio7pq15bSNhz5F3pGR2 L3HzXQMbxeapjFSbvYemSE5tTV JhxxplPYQuvE3uLCQqC1j0HfZt NiL6KUooY1BlviX6CDTcoLZn ZBilCIJ4N37vn8O6CUJjCZOcJC C8iCX5gY4cyBbkhjbknMMlqTfo iiKqdItfHIuwLObgM488MOEi zXtoSBJvaP2hYDMzbABumQvxJA 4wNTBpbjsnPldPTExFTlNMRUdF TCwgRElBTkEgSjwvdGQ+PHRk WRE4qFavBCrdALHasC4jZWYyY5 l4QrFeUbN7OIzaB5KbCQYymorr Qs16eJ6fZsVwLeC7NKoqJ3Sm ggM6ZFBpgZKlCFgqUGW3A31hd9 R5VXLoMLJyDRK5wJE6dS7efFmx bjogbGVmdDsgdmVydGljYWwt YSizB691RKHgiHfzWgPhDwImCh W7KGY7R4TxMwi9YUGmdIksGA6v fVAaFGlfIh3hiThsrMehPW4k MXUlzccsMGKxgQ6pDTOihTDkmN gkMC0sAYVczvvmh791GgAvPHC8 LIIrpBIgD6NhxJ9fVhTnKKCk RWHwM1HdxYIoRZkhR141LPasAj T3PIPktdJpM3GdYSTooZcjYjI8 o5J2Hn01SaYNDYSlcjlesHH+ VAZpWDU8bNbyPVozGEScuK0mUM VnK0q6HsIdKlH1AIoiN5ZpZXBz rwvpDe01nN6yXwVyRwM3NLrf W8NjxmO7QELiaTGmHDedOUK5Y0 8ar5F9JLOtRFOnOJT3tCU5nK1r bGlnbjogbGVmdDsgdmVydGlj KDpbMPwlZ838MIYxzGjvEzTnhX FsZTwvdGQ+MYGyWBN8vGhnFHht LMOyiM4fAIGfW5a1WwFzFqB5 XEqmG1TwHFStumlgSs41sQ7aGc XkKuS9ABlzW3BbtwZ3KJMnhBAu CNsrMBE4R97vm3N6SHYaYROt DSL0dVU5oJ6goVzczgxohBKlzV hwijEhySmwPSsjQIqxK845NQEg qOfpFb1ht2VxpvU5tV2wKL99 PA54S1EeCndexACsbKV+PHRhYm xlIHdpZHRoPScxMDAlJyBzdHls XD5yUa8dOINlBIOvrFqglMKy RgUgo2qoAYXqXWvpRZ1upThhK7 SxlMM8KWSka5g3Kc08R80yL4Kl dXA+MQLsqXL0vDM8sN3oEsWq PzD7ZUpxK312FcUzvFQsVxtad1 hxj3ozeJj2UyFxPKGkdcFlhLla HBK6w8LiPr19D99vJLjvQCJe JDBfTVXqQGXslCvqvd1fyN6vVe 8+GNSomFM1fYN7uF9lFzMkTsU7 BXbgN118QaAgcZLmRbtcY03p L1EdhND+BLLnNdq1VYCjjZgtXO 4uhACjTCcvNz1lKNH5IuCbWwYe FHqvP3FuKZPxqmijfoktcUZ7 ELXxWRZboK28No2nuArrBk7eKC YxMNY1HULqiHWbY2ThlP5dLeDl LFAdVNWtV1KgkHLyXTyfW916 TOapRsG2XOCtfjDaA4HbSOSpqM dbLfW8f5U2Nl5MzGvnnRXiUK0j VqVdLFb7A2HaWhb8PIRmrSgv ZE2hiWInTMgqNw6yoEyakNkbPO 6gJEAsqewec490UqEpz2xxWZFx kVDnZMbyPLO4K80ko4W2RWNh WOBfOYB3jDC0fR2seUdzuutgbL ZhwTllpvEfcOiuMZgpLPufY196 GZBhrBoxMyOCZlm1X4IzGkj9 VYRkmNzmES9fdACyHHsoUp9riL ingJfkTM0wCDMhsifgf006OuAb p5nvNVOueANfMHtwKNW9P83m k5S4CZOpTOFmBXE5bVH5rO8jkM lnbjogbGVmdDsgdmVydGljYWwt NQvkA263HSGxfTpbNo3QFlb9 S6JnRwh6IHXgkLxxJO2foTBuUF prTk7biFeakPjiIG7zFBSbmdmk a050DqToa3icIGRgnQMjBHpb TRT0Q83uh8D0KSNxNLEqYKX2yW P4wT1vaFvwgldiqJJyyNvuezHc yMynEVlgKCnjO317HRLlgCti PlBheWVyOjwvdGQ+NW31fg04Q4 EiQwkeUqj4FFTkYLK5dKY9eB6b RUJlVNnbb6D4iSK5H7IgtbSc ci1j (more content not included)... [facility] Coding Summary. CD:[id number] Gh0bWw +PGhlYWQ+YN6DPNGlV67ryZWpm C8CF6oRBY6GGXCYOUFVLM7AGH1 hrVN5RQmhJ7FiowAr FczkpUTnUD10ZHx5JRN3fPswGW hczO4olIFhP7p3UcYmHE11nM77 OCczHOXoRuA8PaZgmehfzUEz D5toBnQsmABbMbo+PHRhYmxlIH maXPImXSktBSMsBySsxMlyJZ2y Bc2lSJRjHWOyvLoarXTjRcMl t1gcSWEqNJprOK5jjEalX4WvbK U1TXOvx1n0Ju19qPT+PHRkIHN0 mEulLEbiz402HtWpe2luXPS7 hKSkIDsbAIT4S75dp0K5FNAkIZ HlBNV0tIS4tU0mwLmckefpI9Si qBBcRhT8JUU4gJNllQ0owLpx bbyhaF4gXrl+D51UKG3AEZXKNX 0FXvu5K2XvRiazzTX+TG02RFGq AQ07vZLjeJFty5cygHl5YxVn EVKrDHU4bHsvDSurs4QdUGAwF4 4plGUun4S5EHVgxFfjzLFmUyUq bCP4jH9tAWoieyege2hcfyoq Xoanq7egis70zG78G83hZSqzKD SiWJI8STWbCDUxdGoxfo9uuN8a Ii8+VNihj6ahd3jnqIu6ToLm BBJawaAqdWdqVKL2t6IyMb76X5 XqaCssu8TxSnu5cy93kOWfz4Z5 oBU3EDwwIDTmjA0oGJprKwW4 FLKtYnUoaE64lXImOAmrTc7pkO wwaYrzIO3vHDAkdzezYZDgqS4i MIZdvQWcfOazTP4vWDIwkxiu f798HjKrPHV3ZPCauPTwM3UraF 8qBaOzCLUqWUScR9ZncZDyTWhs T111OCjoZtD3TVWfxqMaG2Kk XLSmiBtxGwA5f4S0Jx3Gy3Tvlg rmHIY3LGrpWZPnTkAmJhBdBsH3 Q3PzYxg1APZduSngNQ2vE3Gc FDIyjlypkxyptPY4LNGhEBDuuA 99jAVoOHnfVn7fr3A6p302TOGw NWYnuM75Bw2rbXjmDCBrtIDD gP3sfbcfm5iviuirAmCvDWQgAV v1GHj6THKjkVjiYjBkXUK1PpJ1 GMY3vOXtzI7lkTarbjdthM4q Oyc+L03akD1tMHR1YXP1viurFF DkygCgSP67KO49D8SzWllzrHRw bGU+XFSdgjIgtKaaUX0oUxIx a9zwb9QeILicZ6KvIZVaXGeuXl z0TWUvFYS4iTM5qA3wOLHgWCag u1C3sOW0S9MatmGaxv8zf0om XAUzKIpiC43uaMRtq1A7YAXigL N4TCFatDirHxCjgF60Qzv+PGNv rUnxu2VvSlyri3ezs4kaxRx1 NlUoYRFnniHagZunBYA2w3LcPs 33E71zSCaaQSMtCXLkWUTjBCZc jIeicu4bfZ6eNs5+PGNvbCB3 eJS0jF1mYQQpWtN4GWfkS373Tt GnqMOnCllzw5zae4roqKm7RmOz DVZudsMnrYjyGTS0g3StKc00 H64lLZekXSKiPVLcGDDuOLQrtD zjld3olI4nPp7+TQ7lh2cphf05 vS36zGC+POJvTVD0hLlyFVqo JUMejD3oDYnrKeC0MXKiLtCrdO 70gOBaFVfxLz1unCsulDmwXH2x JVSyxnkdq465WuVcn5peKDNq aVNyWTdcSOZ6I98io5G1JFJsGI SnNNC5gST7aP1nyAiqrioczCJc wNjfstWbbGfoNOboIUmjQ286 IHRvcDsnPlBhdGllbnQgTmFtZT p3X4YrEkj1SPYccIzlFD9rfPFg UEvfYb9liHgypLbrCC9yXMMb fahnr647HlDhv2cxDIVxkHWsHG nhYQX4O15fq2J5KVHmLAPhRRW0 eJJ8sQ3pfMdsispigXIqoIgu hsDiqYayANphJBbzZ803NMXrhL iqOyYvnvWeLWQdlWX8DL58YZ94 qQUmo2W4mRR2J3GlGSUmxhvs ufamoHO0IGOaUBGalY64Zk2fbA ygPd8cEKVgNMG2RIVslJXgB7Uq aF4fBuPmPFUsNZWwA8LliVKx XRkgN713KWmqHtS5ZDTensImN0 LeYYNsdKehLsS5q2W8Mh7UL7O1 PN14PR58nRLzy8Z3aAG8A0Rm MIWubsrjpzfhfRK5WBXxNDCnsM 61Ji6opKasKe8lSFMvBTP1BUPt tWZiS6FcvD5xLwQqYJZcHRTt X2KntOAwFLqtL162YNcfIyV6TY YhusGaR4HjTXFvuNpgNxG7e2K9 Ab6WPXz6CO70AL77dXDcq9O6 pFJ5L9NfQFFlzhfguchqtAA8OZ PaWFDdjM70Di4eeXanDv7gPQFr OUL7IQPukMNmI0RggN9wWlNx XORiYFYmH7EjxSDrJLlcY683JU biIzK9QVHuguOeK6JkZSRytEso HuT1t5C8Md1YRDXuKX96JTQ1 aWM8GP83DH14K3GrKbjmxXYthD U+PHRhYmxlIHdpZHRoPScxMDAl MhTnrDiiMJ9rGj4lBNVtSFNq zCxcsZQmHdJpp3jvIKRgBRsxIU 4jrQlyS0IzmEI4RQYug5f2Vz41 C93bI8FitVM+CEJnhGG9kGU1 xO3pWkVrFdO2JOdaV979ZdPpuE ZmLjvxa0jdx1juvTl0ZqM3BHSe lwCbuZfmJYP9h5GcWb66D82f IHdpZHRoPSIxNSUiIHZhbGlnbj 3unA2xJr4+IJGxgPU6pVL0bP7d TcDsPnS9MZokC677RxZwaIIu Icdrj7cms1gyrPm6SlPqLBJond UfvLkfPAF6q8SeVc27T1KvgCtb x7XfDxr0zo58lVRsf3D1cGN0 V9MpMDSmgectnGQdjNcaRV1rWA WwpdgdEMTnpP4dXOErB8b9IeVr PaQ8JVsxV4EcriF9EDKsyHDq CNvtKYC1P41gw8I2RQTbSUQpLV G7lCP9zF8uqFhzookkcHAfeIjy xjLveWekLSeiYLucV673RFYp bFjsGFNdpE5kXFAkiKNltRziFS 4wNTBpbjsnPldPTExFTlNMRUdF TCwgRElBTkEgSjwvdGQ+PHRk JYL9dSdyFUzwWYPgtX7dZFOqO7 l4IkQiOkV9DJelY9JzRTLwmscp Iy19rJ3aHcQrPtX2MCdwB1Dv neB2OMHseJUfWZdrOEO6I66qs8 R4RQTeKSVqIBI8hZU0gC4moVcb bjogbGVmdDsgdmVydGljYWwt IPhyD798EMPinNtgDkLgGmBzKz V3TWR2L8RuEit1PWFiaRbvEZ9v gJYwDIunFo6fmLpetZupMT5z LYJqwrzqFISmgB7pXVIexVWzbE qnGR5dIAFzulreq675YpPdWRK8 JNKdyVOaG6UtpJ6uWeJuNXIm ITUqT5ZnjSIrDWckY524WRokFa K7QRNoiwEsR4BhOJBrvRgqLlH0 j9N0Sw88BhUVURPcpqmqnLC+ QMJyHMU2bOrcZRmvZHAhyN6uRA VrB4o1SmLlCoJ1SZpzV0UoIKTp nfnlKi21aQ0hLmVdOgX5DCuj C7FgrmL8OMCpaQIwASnaEFF1V2 5tm8K7ZTYmGYGpBOU2sHE9qW3c bGlnbjogbGVmdDsgdmVydGlj MOfgFYeoO215EBTqkCwxXfElrL FsZTwvdGQ+TQPyHKA3rYybBRfk PKOriB3iRCWaB4p9BgQvCvA1 TKymA4HvPAWiuidmYg28dM7xAq DnNgA2LYdnK7SafxX8INIvoEDp XHbmGAC8X70lo8Y9UIRoGMPf EAH8yDZ2fJ2ceSltwrxuzEZwaT zefuAahWbgODoeCLflG509MHCv qHhuGlUqNhLxHTQtvjgsA4Qm KVKTNMatL7QwT9YorMafaPT+PC 60cv94F0CaKvbaTez7EJMvPNT5 kQC4bE1yOBKvAMslk0W0sIW5 K3NhghStui5vx3nhIQEtQDymK4 4tnIFqv8Z8KKFzmDR1QJAzrPeg FsPrbY08Ldf+UINhxExwm2Ef Cffzr1dgk8gskWc9UnCpCAHqmj BndPfxMWG4v4WsUr12U11kFUfh WIZhBSPgSHCtLDAnsIznbn4m cH3vWw3+FWFxjAZ5sFP5xR1lCa NuWnT3XTkhT504DqYisTKkOsbh m2zym2pboVz2DkFnPYEmipAr fOpsFKR6f7EhSw32C9VhwAyfz7 ToYhr8yf26yMEdy7M7dKM8O4Ns PVTyicfxzGNsoEncGB2vCAFm wtxeJXCciF4dOKYwK8w9BgPkBy K3XDmjA3JdidD5CBPqsNDjLDAn bOFYhH3rndqgn3vruzyyVmOv SPBhACm3QBd2SVYwkFluVfMfOG F8AcZ9BZY4cORhwN8ihWidxbck mQ7sEoe+RZi7u6fddOXsES2g kCC0AN10MD03yXRoh9Z0lDK9N4 ArCFNhmuryozdarAT5JATsUBUx oF52Up1qoBcoTq5qJKXeBNL7 DYDofFEeK7GnzL8pRsOpDMSfVI DrU1MgvSByYEhuQ820JWjdQjY5 VRMexoVnC5EeUQAgxJqaGbB4 v5P4Ie0VAX46XK05EQ02hVByc9 D2mPR5V3GbOFTyxwkjcalqmVT7 IYMcVMStxR17Ej1vsEuyMc0y SHWcPID5TIFvmFYnK9OwtZ6uAf PlAODgBNCmL2ZjbHRiBMgnW365 BIniIqD3QKDdwaHhT1EgWTCg eQrlAwJ9j8N3Lc7BOz26EJ53GL 52xMDeb5I4yAK8I0FtGJSqcroi lhhmeXM2DKQxUFOcrW42Iy7m yCpqHc8hIFZvWQL7CACdeQDaH1 TrbS1lJhGeGAPiFQJlM0IloXKc BZkoF892SQgiDdD2HPFesjIe E8BnFPYkoJmeLkH5m8H7Kb2WFO nxlon4L6FzItvgjHY+KD41GZDx BV22pLWedNQmz8kmdAw5ByJw MCUn (more content not included)... Normal [facility] Discharge Instructionson Discharge Instructions [id number]#1.00CD:127 Normal [facility] Lab Reportson 06-30-2021 Lab Reports [id number]#1.00CD:127 Normal [facility] Message from Medicareon Message from Medicare [id number]#1.00CD:127 Normal [facility] RAD - CT Reporton 06-30-2021 RAD - CT Report [id number]#1.00CD:127 Normal [facility] BMPon 06-29-2021 Anion gap [Moles/Vol] 15 mmol/L Normal 6-16 [facility] Comment on above: Performed By: #### 2 [id number], [id number] #### [facility] Laboratory [address] [place] [address] Calcium [Mass/Vol] 8.6 mg/dL Low 8.9-11.1 [facility] Comment on above: Performed By: #### 2 [id number], [id number] #### [facility] [address] [place] [address] Chloride [Moles/Vol] 104 mmol/L Normal 101-111 [facility] Comment on above: Performed By: #### 2 [id number], [id number] #### [facility] [address] [place] [address] CO2 [Moles/Vol] 23 mmol/L Normal 21-31 [facility] Comment on above: Performed By: #### 2 [id number], [id number] #### [facility] [address] [place] [address] Creatinine [Mass/Vol] 1.0 mg/dL Normal 0.5-1.3 [facility] Comment on above: Performed By: #### 2 [id number], [id number] #### [facility] [address] [place] [address] Glucose [Mass/Vol] 107 mg/dL Normal 55-199 [facility] Comment on above: Result Comment: If t his glucose result represents a fasting glucose, interpretation should refer to the following reference range: 55-99 mg/dL Performed By: #### 2 657904, [id number] #### [facility] [address] [place] [address] Potassium [Moles/Vol] 4.5 mmol/L Normal 3.5-5.3 [facility] Comment on above: Performed By: #### 2 835398, [id number] #### [facility] [address] [place] [address] Sodium [Moles/Vol] 137 mmol/L Normal 135-145 [facility] Comment on above: Performed By: #### 2 141717, [id number] #### [facility] [address] [place] [address] Urea nitrogen [Mass/Vol] 21 mg/dL Normal 5-21 [facility] Comment on above: Performed By: #### 2 [id number], [id number] #### [facility] [address] [place] [address] Urea nitrogen/Creatinine [Mass ratio] 21 No Units High 10-20 [facility] Comment on above: Performed By: #### 2 [id number], [id number] #### [facility] [address] [place] [address] Inpatient Clinical Summaryon 06-29-2021 Inpatient Clinical Summary [address] [address] Clinical Summary Person Information: Name: MINAL CAPUTO Age: 65 Years : 1955 Sex: Female PCP: EFREN AMANDA MD Marital Status: Race: White Ethnicity: Non- or Language: Estonian Visit Id: Visit Reason: New onset afib Speciality: Acuity: Enc Type: Observation Med Service: Medical Arrival: 06/28/2021 15:07:59 Discharge: Dispo Type: Address: Armando MAYEN [facility] [id number] Provider Notes: Diagnosis: 1:Premature atrial beat; 2:Kidney [...] Physician: Follow up: With: Address: When: EFREN MAYEN [address] [id number] Business (1) Within 5 to 7 days Type Location Start [facility] Surgical Services 06/29/2021 5:00 PM 06/29/2021 5:46 PM Confirmed Patient Education Information: Kidney Stones, Irgl-aw-Uslu Normal [facility] Inpatient Patient Summaryon 06-29-2021 Inpatient Patient Summary [address] [address] Patient Discharge Instructions PERSON INFORMATION Name: MINAL CAPUTO Date of : 1955 Current Date: 06/29/2021 17:34:14 PHYSICIANS Admitting Physician: Terrell IVY MD Primary Care Physician: TREASURE HATHAWAY, EFREN PCP Comment: Discharge Diagnosis: 1:Premature atrial beat; [...] Follow up: With: Address: When: EFREN AMANDA [address] [place] [address] Business (1) Within 5 to 7 days In the event that this physician does not participate in your insurance network, please consult with your insurance company to find a nearby participating provider. Type Location Start [facility] Surgical Services 06/29/2021 5:00 PM 06/29/2021 5:46 [...] of the u (more content not included)... [facility] Interdisciplinary Note - Yariel e Manageron 06-29-2021 Interdisciplinary Note - Experimental [employer] CRM spoke with patient in room. Patient is alert and oriented and participates in discharge planning. No family in room. Patient white board updated, and CRM contact information provided. patient states Cande saw her today and plan is to have surgery today as was planed yesterday when she was admitted. Patient verified PCP, insurance and DME. Patient lives alone and a friend or family will transport. she denies any needs at discharge. Will wait for urology for cysto with stent to be placed. [facility] Comment on above: Result Comment: Elec tronically Signed By: Teddy ESPANA, Tequila\.br\Date and Time Signed: 06/29/21 11:22 EDT Monitor Recordon 06-29-2021 Monitor Record [id number]#1.00CD:127 [facility] Monitor Record [id number]#1.00CD:127 [facility] Monitor Record [id number]#1.00CD:127 [facility] Monitor Record [id number]#1.00CD:127 [facility] Monitor Record [id number]#1.00CD:127 [facility] Outside Recordson 06-29-2021 Outside Records [id number]#1.00CD:127 [facility] Patient Education - [employer] 1 08-29-2020 [...] these instructions at home: Medicines ? Take [id number] and prescription medicines only as told by [...] 01/28/2009 Document Revised: 12/29/2019 Document Reviewed: 12/29/2019 [employer] Patient Education ? 2019 [employer] Nicki Tracy [facility] Progress Note-Physicianon Progress Note-Physician Basic Information [...] 16:48:00) Lymph Auto: 16.9 % (06/28/21 16:48:00) Monroe Auto: 8.3 % (06/28/21 16:48:00) Eos Auto: 2.4 % (06/28/21 16:48:00) Basophil Auto: 0.4 % (06/28/21 16:48:00) Neutro Absolute: 6.6 E9/L (06/28/21 16:48:00) Lymph Absolute: 1.6 E9/L (06/28/21 16:48:00) Monroe Absolute: 0.8 E9/L (06/28/21 16:48:00) Eos Absolute: [...] and scoliosis. (more content not included)... Normal [facility] Comment on above: Result Comment: Elec tronically Signed By: CANDE HATHAWAY, Terrell\.br\Date and Time Signed: 06/29/21 11:13 EDT Troponin 6 Hr.on 06-29-2021 Troponin I.cardiac [Mass/Vol] 2.70 pg/mL Low 10.10-27.1 0 [facility] Comment on above: Result Comment: The 95% CI (Confidence Interval) PPV (Positive Predictive Value) for myocardial infarction in females is 38 pg/mL, in males 51 pg/mL. The results should be used in conjunction with clinical conditions of myocardial infarction. (Access High Sensitivity Troponin I Instructions For Use, Rosalee Barrington, March 2018) Performed By: #### 1 [id number] #### [facility] [address] [place] [address] Troponin 9 Hr.on 06-29-2021 Troponin I.cardiac [Mass/Vol] 2.90 pg/mL Low 10.10-27.1 0 [facility] Comment on above: Result Comment: The 95% CI (Confidence Interval) PPV (Positive Predictive Value) for myocardial infarction in females is 38 pg/mL, in males 51 pg/mL. The results should be used in conjunction with clinical conditions of myocardial infarction. (Access High Sensitivity Troponin I Instructions For Use, Rosalee Barrington, March 2018) Performed By: #### 1 [id number] #### [facility] [address] [place] [address] US Renalon 06-29-2021 US Renal Exam Date/Time: [...] Transcribed by: BOOGIE Technologist: JOSE GUADALUPE Caceres [facility] XR Abdomen 1 Viewon 06-29-20 21 [...] V. Transcribed by: BOOGIE Technologist: CHECO Normal [facility] eGFRon 06-29-2021 GFR/1.73 sq M.predicted among blacks MDRD (S/P/Bld) [Vol rate/Area] mL/min/{1.73_m2} Normal >=59 [facility] Comment on above: Order Comment: Order added by Discern Expert. Result Comment: eGFR is race adjusted. AA=. Performed By: #### 2 375342, [id number] #### [facility] [address] [place] [address] GFR/1.73 sq M.predicted among non-blacks MDRD (S/P/Bld) [Vol rate/Area] 55 mL/min/1.73 m2 Low >=59 [facility] Comment on above: Order Comment: Order added by Discern Expert. Result Comment: Cryptological Technician renetta kidney disease could be indicated at eGFR's of less than 60 mL/min/1.73m2. Kidney failure is indicated at less than 15 mL/min/1.73m2. Performed By: #### 2 809314, [id number] #### [facility] [address] [place] [address] Ambulatory Clinical Summaryo n 06-28-2021 Ambulatory Clinical Summary {[id number]}CD: [id number] Normal [facility] Auto Diffon 06-28-2021 Basophils/100 WBC (Bld) 0.4 % Normal 0.0-2.0 [facility] Comment on above: Order Comment: Order Added by Discern Expert. Performed By: #### 2 133594, 4626640, 4242355, 03043577, 18450406, 8927232 ####[facility] [address] [place] [address] Basophils/Leukocytes Auto (Bld) [Pure # fraction] 0.0 E9/L Normal 0.0-0.2 [facility] Comment on above: Order Comment: Order Added by Discern Expert. Performed By: #### 2 103636, 8569493, 3471290, 13726125, 35715434, 2508337 ####[address] [address] Eosinophils/100 WBC (Bld) 2.4 % Normal 0.0-8.0 [facility] Comment on above: Order Comment: Order Added by Discern Expert. Performed By: #### 2 540273, 7860420, 7453081, 93390950, 37487304, 2757501 ####[address] [address] Eosinophils/Leukocyt es Auto (Bld) [Pure # fraction] 0.2 E9/L Normal 0.0-0.5 [facility] Comment on above: Order Comment: Order Added by Discern Expert. Performed By: #### 2 450918, 0108870, 8150120, 75041173, 62801199, 4385655 ####[address] [address] Lymphocytes/100 WBC (Bld) 16.9 % Normal 14.0-50.0 [facility] Comment on above: Order Comment: Order Added by Discern Expert. Performed By: #### 2 945803, 1638007, 1192794, 87014553, 63002269, 5736919 ####[address] [address] Lymphocytes/Leukocyt es Auto (Bld) [Pure # fraction] 1.6 E9/L Normal 1.0-4.0 [facility] Comment on above: Order Comment: Order Added by Discern Expert. Performed By: #### 2 918969, 1878320, 8461443, 49649705, 68554409, 6820340 ####[address] [address] Monocytes/100 WBC (Bld) 8.3 % Normal 4.0-14.0 [facility] Comment on above: Order Comment: Order Added by Discern Expert. Performed By: #### 2 968343, 0622937, 2708898, 43967265, 68350692, 7110070 ####[facility] [address] [place] [address] Monocytes/Leukocytes Auto (Bld) [Pure # fraction] 0.8 E9/L Normal 0.2-1.0 [facility] Comment on above: Order Comment: Order Added by Discern Expert. Performed By: #### 2 160280, 8451387, 4819623, 28983191, 87644465, 9307794 ####[address] [place] [address] Neutrophils/100 WBC (Bld) 72.0 % Normal 36.0-75.0 [facility] Comment on above: Order Comment: Order Added by Discern Expert. Performed By: #### 2 793967, 3033141, 8530802, 50420594, 93949484, 5896198 ####[address] [address] Neutrophils/Leukocyt es Auto (Bld) [Pure # fraction] 6.6 E9/L Normal 2.0-7.5 [facility] Comment on above: Order Comment: Order Added by Discern Expert. Performed By: #### 2 718541, 3252459, 6367445, 77749389, 65733611, 8477145 ####[address] [place] [address] BMPon 06-28-2021 Creatinine [Mass/Vol] 1.5 mg/dL High 0.5-1.3 [facility] Comment on above: Performed By: #### 2 102003, 9851868, 3244832, 28986634, 45369447, 9087352 ####[address] [place] [address] Urea nitrogen [Mass/Vol] 25 mg/dL High 5-21 [facility] Comment on above: Performed By: #### 2 225913, 1311830, 0409405, 03788376, 81134645, 9142468 ####[address] [place] [address] Urea nitrogen/Creatinine [Mass ratio] 17 No Units Normal 10-20 [facility] Comment on above: Performed By: #### 2 460929, 6385564, 9570584, 47931449, 26491344, 3625555 ####[facility] [address] [place] [address] Anion gap [Moles/Vol] 14 mmol/L Normal 6-16 [facility] Comment on above: Performed By: #### 2 822122, 7942384, 5809472, 44328792, 54015234, 2435261 ####[facility] [address] [place] [address] Calcium [Mass/Vol] 8.7 mg/dL Low 8.9-11.1 [facility] Comment on above: Performed By: #### 2 877437, 8248484, 9905393, 90301008, 28660631, 8527592 ####[facility] [address] [place] [address] Chloride [Moles/Vol] 102 mmol/L Normal 101-111 [facility] Comment on above: Performed By: #### 2 971674, 6549700, 7725683, 80884902, 36157341, 0185266 ####[facility] [address] [place] [address] CO2 [Moles/Vol] 27 mmol/L Normal 21-31 [facility] Comment on above: Performed By: #### 2 381955, 9834515, 3067414, 36749137, 13586291, 1442263 ####[facility] [address] [place] [address] Glucose [Mass/Vol] 121 mg/dL Normal 55-199 [facility] Comment on above: Result Comment: If t his glucose result represents a fasting glucose, interpretation should refer to the following reference range: 55-99 mg/dL Performed By: #### 2 757807, 7739510, 3684699, 45114852, 67318111, 0792559 ####[facility] [address] [place] [address] Potassium [Moles/Vol] 3.8 mmol/L Normal 3.5-5.3 [facility] Comment on above: Performed By: #### 2 046974, 1316523, 0265898, 82131424, 09125942, 2751797 ####[facility] [address] [place] [address] Sodium [Moles/Vol] 139 mmol/L Normal 135-145 [facility] Comment on above: Performed By: #### 2 753705, 3887051, 4387831, 16197741, 50145051, 0384667 ####[facility] [address] [place] [address] BUNon 06-28-2021 Urea nitrogen [Mass/Vol] 25 mg/dL High 5-21 [facility] Comment on above: Performed By: #### 2 717002, 2128702, 9353832, 55350663, 0011799, 8018122 ####[facility] [address] [place] [address] CBC w/ Auto Diffon Erythrocyte distribution width (RBC) [Ratio] 14.3 % High 10.9-14.2 [facility] Comment on above: Performed By: #### 2 979798, 3090865, 0697211, 98421476, 55233054, 2843800 ####[address] [place] [address] Hematocrit (Bld) [Volume fraction] 41.3 % Normal 34.0-46.0 [facility] Comment on above: Performed By: #### 2 121018, 0848346, 2365157, 74046689, 65503555, 5642877 ####[facility] [address] [place] [address] Hemoglobin (Bld) [Mass/Vol] 13.6 g/dL Normal 12.0-16.0 [facility] Comment on above: Performed By: #### 2 879655, 7277922, 0615149, 37417488, 68286961, 4928463 ####[facility] [address] [place] [address] MCH (RBC) [Entitic mass] 29.7 pg Normal 27.0-34.0 [facility] Comment on above: Performed By: #### 2 891293, 9287675, 3859518, 86392685, 26202352, 4382817 ####[address] [address] MCHC (RBC) [Mass/Vol] 32.9 g/dL Normal 31.4-36.0 [facility] Comment on above: Performed By: #### 2 732413, 3211438, 0062138, 56295067, 80201996, 4015475 ####[address] [address] MCV (RBC) [Entitic vol] 90.0 fL Normal 80.0-100.0 [facility] Comment on above: Performed By: #### 2 311593, 1994241, 1511284, 75303529, 36683865, 3857093 ####[address] [address] Platelet mean volume (Bld) [Entitic vol] 7.7 fL Normal 6.4-10.8 [facility] Comment on above: Performed By: #### 2 280965, 2516867, 0774506, 36428173, 92779903, 4152485 ####[address] [address] Platelets (Bld) [#/Vol] 300.0 E9/L Normal 150.0-500. 0 [facility] Comment on above: Performed By: #### 2 229384, 6456768, 8855626, 84087288, 57913787, 9842682 ####[address] [address] RBC (Bld) [#/Vol] 4.6 E12/L Normal 4.3-5.9 [facility] Comment on above: Performed By: #### 2 704736, 5599225, 5092379, 83154532, 94736132, 4648247 ####[facility] [address] [place] [address] WBC corrected for nucl RBC Auto (Bld) [#/Vol] 9.2 E9/L Normal 4.0-11.0 [facility] Comment on above: Performed By: #### 2 240246, 5282301, 1436580, 30650525, 44306173, 2951853 ####[facility] [address] [place] [address] CBC w/Indiceson 06-28-2021 Erythrocyte distribution width (RBC) [Ratio] 14.2 % Normal 10.9-14.2 [facility] Comment on above: Performed By: #### 2 378076, 2316236, 6455220, 31451931, 3785312, 4446952 ####[address] [address] Hematocrit (Bld) [Volume fraction] 44.1 % Normal 34.0-46.0 [facility] Comment on above: Performed By: #### 2 928911, 6844871, 7379474, 79203014, 9784553, 5903387 ####[address] [address] Hemoglobin (Bld) [Mass/Vol] 14.5 g/dL Normal 12.0-16.0 [facility] Comment on above: Performed By: #### 2 225057, 0933058, 3698507, 91077497, 0004586, 1029791 ####[facility] [address] [place] [address] MCH (RBC) [Entitic mass] 29.7 pg Normal 27.0-34.0 [facility] Comment on above: Performed By: #### 2 439694, 8395370, 7517523, 77526542, 5628463, 9902604 ####[facility] [address] [place] [address] MCHC (RBC) [Mass/Vol] 32.9 g/dL Normal 31.4-36.0 [facility] Comment on above: Performed By: #### 2 676640, 2149965, 0676801, 54584987, 8642524, 6779697 ####[address] MCV (RBC) [Entitic vol] 90.5 fL Normal 80.0-100.0 [facility] Comment on above: Performed By: #### 2 257639, 2540109, 1199217, 91374019, 8934625, 6364056 ####[address] Platelet mean volume (Bld) [Entitic vol] 7.9 fL Normal 6.4-10.8 [facility] Comment on above: Performed By: #### 2 525753, 4145268, 2573359, 88650797, 6573882, 9282606 ####[address] Platelets (Bld) [#/Vol] 289.0 E9/L Normal 150.0-500. 0 [facility] Comment on above: Performed By: #### 2 077345, 4307123, 7075918, 50949942, 6149052, 3510446 ####[address] RBC (Bld) [#/Vol] 4.9 E12/L Normal 4.3-5.9 [facility] Comment on above: Performed By: #### 2 548134, 1969193, 4226976, 37335647, 2192875, 6158862 ####[address] [address] WBC corrected for nucl RBC Auto (Bld) [#/Vol] 9.5 E9/L Normal 4.0-11.0 [facility] Comment on above: Performed By: #### 2 288360, 3046087, 6694351, 20361687, 5427437, 2764990 ####[facility] [address] [place] [address] Consent for Procedure/Surger yon 06-28-2021 Consent for Procedure/Surgery [id number]:127 Normal [facility] Consultation Noteon 06-28-20 Consultation Note Patient: MINAL TAMAYO Age: 65 years Sex: Female : 1955 Associated Diagnoses: None Author: Ignacio HATHAWAY, Judy Black Basic Information Time Seen: Date & Time 06/28/2021 14:31:00. Source of history: Medical personnel, Medical record, Patient. History limitation: None. History of Present Illness 65 yo F with hx of nephrolithiasis who presented to the [facility] ER yesterday with LLQ pain and findings [...] cardiac hx and has never seen a quality control lead. Father hx CHF. Currently denies fever, chills, [...] All Problems Abdominal pain / SNOMED CT 28827078 / Confirmed Arthritis / SNOMED CT 2376075 / Confirmed COPD mixed type / SNOMED CT 75298702 / Confirmed Feeling of incomplete bladder emptying / SNOMED CT 289902049 / Confirmed Hydronephrosis with obstructing calculus / SNOMED CT 57599292 / Confirmed Hypertension / SNOMED CT 7714963357 / Confirmed Kidney stone / SNOMED CT 172963659 / Confirmed left kidney, Active Problems (7) Abdominal pain Arthritis COPD mixed type Feeling of incomplete bladder emptying Hydronephrosis with obstructing calculus Hypertension Kidney stone Histories Past Medical History: No active or resolved past medical his (more content not included)... Normal [facility] Comment on above: Result Comment: Elec tronically Signed By: Ignacio HATHAWAY, Judy Black\.br\Date and Time Signed: 06/28/21 14:54 EDT Creatinineon 06-28-2021 Creatinine [Mass/Vol] 1.5 mg/dL High 0.5-1.3 [facility] Comment on above: Performed By: #### 2 836046, 3727333, 8713877, 88541256, 2801875, 5094320 ####[facility] [address] [place] [address] Glu Fastingon 06-28-2021 Glucose [Mass/Vol] 102 mg/dL High 55-99 [facility] Comment on above: Performed By: #### 2 663487, 3739151, 1686935, 02908160, 1785089, 4737659 ####[facility] [address] [place] [address] Immunization Recordson 06-28 Immunization Records [id number]:127 Normal [facility] Lyteson 06-28-2021 Anion gap [Moles/Vol] 15 mmol/L Normal 6-16 [facility] Comment on above: Performed By: #### 2 551346, 7365302, 4469859, 35975975, 3144512, 0253474 ####[facility] [address] [place] [address] Chloride [Moles/Vol] 101 mmol/L Normal 101-111 [facility] Comment on above: Performed By: #### 2 390086, 4996292, 9777822, 99902737, 2863281, 7024117 ####[facility] [address] [place] [address] CO2 [Moles/Vol] 27 mmol/L Normal 21-31 [facility] Comment on above: Performed By: #### 2 728603, 0210542, 3356979, 29414070, 6172955, 9853708 ####[facility] [address] [place] [address] Potassium [Moles/Vol] 3.7 mmol/L Normal 3.5-5.3 [facility] Comment on above: Performed By: #### 2 083532, 6711552, 8689324, 60329549, 7371162, 3263272 ####[facility] [address] [place] [address] Sodium [Moles/Vol] 139 mmol/L Normal 135-145 [facility] Comment on above: Performed By: #### 2 306451, 5500437, 1936032, 48937097, 0106506, 7347274 ####[facility] [address] [place] [address] Magnesiumon 06-28-2021 Magnesium [Mass/Vol] 1.9 mg/dL Normal 1.3-2.4 [facility] Comment on above: Performed By: #### 2 127486, 2404725, 9331866, 46142971, 81538582, 0291781 ####[facility] [address] [place] [address] Outside Radiologyon 06-28-20 Outside Radiology [id number]:127 Normal [facility] Patient Educationon 06-28-20 21 Patient Education [...] Follow these instructions at home: ? Take zgsz-nam-kxlowth and prescription medicines only as told by [...] 06/08/2008 Document Revised: 08/23/2018 Document Reviewed: 08/23/2018 [employer] Patient Education ? 2019 [employer] Normal [facility] Troponin 0 Hr.on 06-28-2021 Troponin I.cardiac [Mass/Vol] 2.70 pg/mL Low 10.10-27.1 0 [facility] Comment on above: Result Comment: The 95% CI (Confidence Interval) PPV (Positive Predictive Value) for myocardial infarction in females is 38 pg/mL, in males 51 pg/mL. The results should be used in conjunction with clinical conditions of myocardial infarction. (Access High Sensitivity Troponin I Instructions For Use, [employer], March 2018) Performed By: #### 2 725300, 7000173, 6121169, 05704373, 64164928, 4940671 ####[facility] [address] [place] [address] Troponin 3 Hr.on 06-28-2021 Troponin I.cardiac [Mass/Vol] 3.00 pg/mL Low 10.10-27.1 0 [facility] Comment on above: Result Comment: The 95% CI (Confidence Interval) PPV (Positive Predictive Value) for myocardial infarction in females is 38 pg/mL, in males 51 pg/mL. The results should be used in conjunction with clinical conditions of myocardial infarction. (Access High Sensitivity Troponin I Instructions For Use, [employer], March 2018) Performed By: #### 1 7395142 ####[facility] [address] [place] [address] UA With Cult Reflexon 2020 Bacteria LM Ql (Urine sed) TRACE Normal Trace [facility] Comment on above: Order Comment: Urina ry Catheter Insertion triggered Urinalysis With Culture Reflex order by discern. Performed By: #### 1 5721042 #### [facility] [address] [place] [address] Bilirubin Ql (U) Negative Normal Negative [facility] Comment on above: Order Comment: Urina ry Catheter Insertion triggered Urinalysis With Culture Reflex order by discern. Performed By: #### 1 1030931 #### [facility] [address] [place] [address] Calcium oxalate crystals LM Ql (Urine sed) Present Normal [facility] Comment on above: Order Comment: Urina ry Catheter Insertion triggered Urinalysis With Culture Reflex order by discern. Performed By: #### 1 0876263 #### [facility] [address] [place] [address] Clarity (U) CLEAR Normal Clear [facility] Comment on above: Order Comment: Urina ry Catheter Insertion triggered Urinalysis With Culture Reflex order by discern. Performed By: #### 1 0553557 #### [facility] [address] [place] [address] Color (U) YELLOW Normal Yellow [facility] Comment on above: Order Comment: Urina ry Catheter Insertion triggered Urinalysis With Culture Reflex order by discern. Performed By: #### 1 4570251 #### [facility] [address] [place] [address] Crystals LM Ql (Urine sed) Present Normal [facility] Comment on above: Order Comment: Urina ry Catheter Insertion triggered Urinalysis With Culture Reflex order by discern. Performed By: #### 1 7444667 #### [facility] [address] [place] [address] Epithelial cells.squamous LM.HPF (Urine sed) [#/Area] 3-4 Normal 0-2 [facility] Comment on above: Order Comment: Urina ry Catheter Insertion triggered Urinalysis With Culture Reflex order by discern. Performed By: #### 1 9699731 #### [facility] [address] [place] [address] Glucose Test strip (U) [Mass/Vol] Negative Normal Negative [facility] Comment on above: Order Comment: Urina ry Catheter Insertion triggered Urinalysis With Culture Reflex order by discern. Performed By: #### 1 6107248 #### [facility] [address] [place] [address] Hemoglobin Ql (U) 2+ Abnormal Negative [facility] Comment on above: Order Comment: Urina ry Catheter Insertion triggered Urinalysis With Culture Reflex order by discern. Performed By: #### 1 9639487 #### [facility] [address] [place] [address] Ketones (U) [Mass/Vol] 1+ Abnormal Negative [facility] Comment on above: Order Comment: Urina ry Catheter Insertion triggered Urinalysis With Culture Reflex order by discern. Performed By: #### 1 8925947 #### [facility] [address] [place] [address] [place].plasma/Lithi um.RBC (Bld) [Mass ratio] 21-30 Abnormal 0-3 [facility] Comment on above: Order Comment: Urina ry Catheter Insertion triggered Urinalysis With Culture Reflex order by discern. Performed By: #### 1 2491722 #### [facility] [address] [place] [address] Mucus Ql (Urine sed) 1+ Normal Fish [facility] Comment on above: Order Comment: Urina ry Catheter Insertion triggered Urinalysis With Culture Reflex order by discern. Performed By: #### 1 0711464 #### [facility] [address] [place] [address] Nitrite Ql (U) Negative Normal Negative [facility] Comment on above: Order Comment: Urina ry Catheter Insertion triggered Urinalysis With Culture Reflex order by discern. Performed By: #### 1 6060590 #### [facility] [address] [place] [address] pH (U) 5.5 [pH] Invalid Interpretation Code 5.0-9.0 [facility] Comment on above: Order Comment: Urina ry Catheter Insertion triggered Urinalysis With Culture Reflex order by discern. Performed By: #### 1 2082769 #### [facility] [address] [place] [address] Protein (U) [Mass/Vol] Negative Normal Negative [facility] Comment on above: Order Comment: Urina ry Catheter Insertion triggered Urinalysis With Culture Reflex order by discern. Performed By: #### 1 6805240 #### [facility] [address] [place] [address] Specific gravity (U) [Rel density] >=1.030 Invalid Interpretation Code 1.005-1.03 0 [facility] Comment on above: Order Comment: Urina ry Catheter Insertion triggered Urinalysis With Culture Reflex order by discern. Performed By: #### 1 7379403 #### [facility] [address] [place] [address] Type of Urine collection method Merino Normal [facility] Comment on above: Order Comment: Urina ry Catheter Insertion triggered Urinalysis With Culture Reflex order by discern. Performed By: #### 1 7120048 #### [facility] [address] [place] [address] Urobilinogen Qn (U) 0.2 {Gerber'U}/dL Normal 0.0-1.0 [facility] Comment on above: Order Comment: Urina ry Catheter Insertion triggered Urinalysis With Culture Reflex order by discern. Performed By: #### 1 9934779 #### [facility] [address] [place] [address] WBC Auto Ql (U) Negative Normal Negative [facility] Comment on above: Order Comment: Urina ry Catheter Insertion triggered Urinalysis With Culture Reflex order by discern. Performed By: #### 1 4630170 #### [facility] [address] [place], [place] [address] WBC LM.HPF (Urine sed) [#/Area] 0-5 Normal 0-5 [facility] Comment on above: Order Comment: Urina ry Catheter Insertion triggered Urinalysis With Culture Reflex order by discern. Performed By: #### 1 3747360 #### [facility] [address] [place] [address] Urology Office/Clinic Noteon 06-28-2021 Urology Office/Clinic Note [...] UVJ stone with hydro on CT yesterday [facility]. pt continues to have severe pain despite toradol and percocet. pt's last po intake was a cracker at 5 am and a few sips of water around 8 am. no fever today. UA in clinic shows blood only. case discussed with Dr Pierre (air support control officer MD). Will schedule cysto with possible stent [...] General anesthesia. pt to proceed directly [place] [facility] [place]. Ordered: Office Visit Level 5 Est 36307 Urnls Dip Stick Auto w/o Microscopy POC 31034 Follow-up With When Contact Information TREASURE HATHAWAY, EFREN [address] [facility] [address] [place] [address]- Additional Instructions: Patient Education Hydronephrosis Problem List/Past [...] Minerals Nexium 20 mg Cap-DR, Oral, Daily [place] 325 mg-5 mg oral tablet, 1 tab(s), [...] Protein Urine Dipstick: Trace (06/28/21 11:25:00) Specific [place] Urine Dipstick: >=1.030 (06/28/21 11:25:00) Urine Appearance Urine Dipstick: Clear (06/28/21 11:25:00) Urine Color Urine Dipstick: Yellow (06/28/21 11:25:00) Urobilinogen Urine Dipstick: Normal 0.2-1 EU/dl (06/28/21 11:25:00) pH Urine Dipstick: 5.5 (06/28/21 11:25:00) Normal [facility] Comment on above: Result Comment: Elec tronically Signed By: PERLA TOBIAS PA-C\.aubrey\Date and Time Signed: 06/28/21 11:50 EDT XR [...] REPORT Dictated: 06/28/2021 2:42 pm Farooq Mendiola MD. Signed (Electronic Signature): 06/28/2021 2:42 pm Signed by: Farooq Mendiola MD Transcribed by: BOOGIE Technologist: SHANI Caceres [facility] XR Chest 2 Viewson XR Chest [...] Garber M.D. Transcribed by: BOOGIE Technologist: SHANI Caceres [facility] eGFRon 06-28-2021 GFR/1.73 sq M.predicted among blacks MDRD (S/P/Bld) [Vol rate/Area] 42 mL/min/1.73 m2 Low >=59 [facility] Comment on above: Order Comment: Order added by Discern Expert. Result Comment: eGFR is race adjusted. AA=. Performed By: #### 2 [id number], [id number], 7531471, [id number], [id number], [id number] ####[facility] [address] [place] [address] GFR/1.73 sq M.predicted among non-blacks MDRD (S/P/Bld) [Vol rate/Area] 35 mL/min/1.73 m2 Low >=59 [facility] Comment on above: Order Comment: Order added by Discern Expert. Result Comment: Cryptological Technician renetta kidney disease could be indicated at eGFR's of less than 60 mL/min/1.73m2. Kidney failure is indicated at less than 15 mL/min/1.73m2. Performed By: #### 2 [id number], [id number], 6590783, [id number], [id number], [id number] ####[facility] [address] [place] [address] GFR/1.73 sq M.predicted among blacks MDRD (S/P/Bld) [Vol rate/Area] 42 mL/min/1.73 m2 Low >=59 [facility] Comment on above: Order Comment: Order added by Discern Expert. Result Comment: eGFR is race adjusted. AA=. Performed By: #### 2 137830, 7743526, 6666481, [id number], [id number], [id number] ####[facility] [address] [place] [address] GFR/1.73 sq M.predicted among non-blacks MDRD (S/P/Bld) [Vol rate/Area] 35 mL/min/1.73 m2 Low >=59 [facility] Comment on above: Order Comment: Order added by Discern Expert. Result Comment: Cryptological Technician renetta kidney disease could be indicated at eGFR's of less than 60 mL/min/1.73m2. Kidney failure is indicated at less than 15 mL/min/1.73m2. Performed By: #### 2 876838, 8129613, 9194283, [id number], [id number], [id number] ####[facility] [address] [place] [address] XR KNEE 3V AP/LAT/MERCHANT L Ton 10-02-2018 [...] IMPRESSION: 1. Postsurgical change. No complication identified.. Cryptographic Clerk: BEA Transcribe Date/Time: Oct 02 2018 10:08A Dictated by : JEANA HAWKINS MD This examination was interpreted and the report reviewed and electronically signed by: JEANA HAWKINS MD on Oct 02 2018 10:09AM EST [id number] KNEE 3V AP/LAT/MERCHANT R Ton [...] IMPRESSION: 1. Postsurgical change. No complication identified.. Cryptographic [facility] Transcribe Date/Time: Oct 02 2018 10:08A Dictated by : JEANA HAWKINS MD This examination was interpreted and the report reviewed and electronically signed by: JEANA HAWKINS MD on Oct 02 2018 10:09AM EST [id number] XR KNEE 3V AP/LAT/MERCHANT L Ton [...] interval complication. Small right-sided joint effusion suspected. Cryptographic Clerk: [facility] Transcribe Date/Time: May 19 2018 12:19P Dictated by : MAYITO MCDONALD MD This examination was interpreted and the report reviewed and electronically signed by: MAYITO MCDONALD MD on May 19 2018 12:26PM EST [id number] [facility] XR KNEE 3V AP/LAT/MERCHANT R Ton [...] interval complication. Small right-sided joint effusion suspected. Cryptographic Clerk: [facility] Transcribe Date/Time: May 19 2018 12:19P Dictated by : MAYITO MCDONALD MD This examination was interpreted and the report reviewed and electronically signed by: MAYITO MCDONLAD MD on May 19 2018 12:26PM EST [id number] [facility] CASE MANAGEMon 04-03-2018 CASE MANAGEM HNO ID: [id number] Author: Tracie JulianRn) MALORIE Hancock Service: Care Management Author Type: Registered Nurse Type: Care Mgt Progress Note Filed: 04/03/2018 12:18 PM Note Text: CARE MANAGEMENT DISCHARGE NOTE SERVICE DATE: 04/03/2018 SERVICE TIME: 04-03-18 LOS: 1 day Admission Date: 03/31/2018 DISCHARGE ARRANGEMENT (list agency and phone number) jail facility: Was an expedited discharge program used? No Provider: [facility] CAREGIVER ASSESSMENT: Caregiver is ready, willing and able to meet the patient's needs as recommended by the inter-professional team? Yes Patient's transition needs and plan for meeting these needs: going to SNF Does the patient have an acute stroke diagnosis, or has the patient had a stroke during this admission? No HANDOFF COMMUNICATION: Dr. Trevino via [employer]oint[employer] faxed DC instructions TRANSPORTATION ARRANGEMENTS: Mode of Transportation: [employer] Agency and Phone #: Javier Durant [phone] . Date of Trip: 04-03-18 Type of Service: BLS Non-emergency Is Patient Medicaid Pending: No Discussion of financial coverage occurred with Patient - she paid $402.00 up front via [employer] Card to Javier Durant . Oxygen System Tester Location: [facility] Destination: [facility] Financial Care Management Responsibility: None Estimated Charge: N/A Approving Rcis: N/A ADDITIONAL CONTACT RESOURCES: Discharge Information Row Name Patient Update from 02/24/2018 in Orthopaedics Admission (Current) from 03/31/2018 in [facility] 5D Medical Follow-Up Appointment Specialty ? [facility] Provider Name ? Poornima Mcknight RN Address ? [address], [address], [facility] ? [place] [address] Phone Number ? [phone] Appointment Date ? 04/21/18 Appointment Time ? 2:00PM Additonal Instructions ? Patient should bring the following to appointment: Picture ID, Insurance Card, Copay (if applicable), Medications/Med List. Please provide a minimum of 24 hours' notice for cancelations/rescheduling. Needs Prior to Discharge: Ready for Discharge SIGNATURE: Tracie Hancock RN PATIENT NAME: Minal Caputo DATE: April 03, 2018 TIME: 12:13 PM PAGER/CONTACT #: [phone] [facility] CONSULT PROGon 04-03-2018 Protein mass conc HNO ID: [id number] Author: Jose Velasco (Pa) Service: Pain Management Author Type: Physician Feather Boner Type: Consult Progress Note Filed: 04/03/2018 10:49 [...] - , CLASSIC, IN-HOSP CARE 1980 - [facility] AFTER DELIVERY - PAST SURGICAL HISTORY [...] DATE: April 03, 2018 TIME: 10:46 AM Normal [facility] NURSING PROGon 04-03-2018 Protein mass conc HNO ID: [id number] Author: Radha (Rn) MALORIE Hough Service: Nursing Author Type: Registered Nurse Type: Nursing Progress Note Filed: 04/03/2018 3:07 PM Note Text: Nursing Progress Note Patient Name: Minal Caputo Patient [facility]: [id number] Daily Note:Report called to LENIN Duncan at [phone] This note was completed by: Radha Hough RN [facility] PROGRESSon 04-03-2018 Protein mass conc HNO ID: [id number] Author: Elaine Alcala Service: Orthopaedic Surgery Author [...] today. Elaine Alcala MD Resident, Orthopaedic Surgery [id number] April 03, 2018 [facility] THERAPY NTon 04-03-2018 THERAPY NT HNO ID: [id number] Author: Barbara (Pt) Bradford Service: Physical Therapy Author Type: Physical Therapist Type: Therapy (PT/OT/Speech/Resp) Filed: 04/03/2018 2:28 PM Note Text: Physical Therapy Treatment SERVICE DATE: 04/03/2018 SERVICE TIME: 1134 to 1205 ROOM: [place] [address] Recommended Discharge Disposition: Subacute/SNF Justification For Post [...] Diagnosis: Reduced mobility-other Interventions Provided: Therapeutic Exercise (88533);Gait Training (47709) Therapeutic Exercise (16053) Treatment Minutes: 21 1 unit Skilled Intervention(s): Instruction in therapeutic exercise anti-embolitics and TKR exercises. Verbal and tactile cuing provided . Education in TKR precautions, HEP, POC, nonpharm pain management, and importance of repositioning/activity. Performed anti-embolitics and TKR exercises bilaterally (0q32olmo). Gait Training (83696) Treatment Minutes: 10 1 unit Skilled Intervention(s): [...] documentation corresponding to this therapy visit. SIGNATURE: Barbara Bradford, PT DATE: April 03, 2018 TIME: 2:28 PM Normal [facility] Basic Metabolic Panlon 04-02 Anion gap molar conc 11 mmol/L Normal 9-18 [facility] Comment on above: Performed By: #### T [address]CR[address] #### [place] [address] Calcium mass conc 8.2 mg/dL Low 8.5-10.2 [facility] Comment on above: Performed By: #### T SCR30 #### [place] [address] Chloride molar conc 100 mmol/L Normal 97-105 [facility] Comment on above: Performed By: #### T SCR30 #### [place] [address] CO2 molar conc 25 mmol/L Normal 22-30 [facility] Comment on above: Performed By: #### T SCR30 #### [place] [address] Creatinine mass conc 0.83 mg/dL Normal 0.58-0.96 [facility] Comment on above: Performed By: #### T SCR30 #### [place] [address] eGFR- Amer. >60 Normal >60 [facility] Comment on above: Performed By: #### T [address]CR30 #### [place] [address] GFR/1.73 sq M predicted among non-blacks MDRD vol rate/area (S/P/Bld) mL/min/{1.73_m2} Normal >60 [facility] Comment on above: Performed By: #### T SCR[address] #### [place] [address] Glucose mass conc 129 mg/dL High 74-99 [facility] Comment on above: Performed By: #### T SCR30 #### [place] [address] Potassium molar conc 4.1 mmol/L Normal 3.7-5.1 [facility] Comment on above: Performed By: #### T SCR30 #### [place] [address] Sodium molar conc 136 mmol/L Normal 136-144 [facility] Comment on above: Performed By: #### T SCR30 #### [place] [address] Urea nitrogen mass conc 16 mg/dL Normal 7-21 [facility] Comment on above: Performed By: #### T SCR[address] #### [place] [address] CASE MANAGEMon 04-02-2018 CASE MANAGEM HNO ID: [id number] Author: Tracie (Rn) MALORIE Hancock Service: Care Management Author Type: Registered Nurse Type: Care Mgt Progress Note Filed: 04/02/2018 9:17 AM Note Text: CARE MANAGEMENT PROGRESS NOTE SERVICE DATE: 04/02/2018 SERVICE TIME: 9:16 am LOS: 1 day Observation letter given to Minal Caputo on 04-01-18 SIGNATURE: Tracie Hancock RN PATIENT NAME: Minal Caputo DATE: April 02, 2018 TIME: 9:16 AM PAGER/CONTACT #: [phone] Normal [facility] CBC and Differentialon 04-02 Abs Baso <0.03 Normal <0.11 [facility] Comment on above: Performed By: #### T SCR30 #### [place] [address] Abs [place] 1.54 k/uL High <0.87 [facility] Comment on above: Performed By: #### T SCR30 #### [place] [address] Abs Neut 7.77 k/uL High 1.45-7.50 [facility] Comment on above: Performed By: #### T SCR30 #### [place] [address] Basophils/100 WBC (Bld) 0.2 % Normal [facility] Comment on above: Performed By: #### T SCR30 #### [place] [address] Eosinophils #/vol (Bld) 0.07 10*3/uL Normal <0.46 [facility] Comment on above: Performed By: #### T SCR30 #### [place] [address] Eosinophils/100 WBC (Bld) 0.6 % Normal [facility] Comment on above: Performed By: #### T SCR30 #### [place] [address] Erythrocyte distribution width Ratio (RBC) 13.9 % Normal 11.5-15.0 [facility] Comment on above: Performed By: #### T SCR30 #### [place] [address] Hematocrit Volume Fraction (Bld) 31.7 % Low 36.0-46.0 [facility] Comment on above: Performed By: #### T SCR30 #### [place] [address] Hemoglobin mass conc (Bld) 10.2 g/dL Low 11.5-15.5 [facility] Comment on above: Performed By: #### T SCR30 #### [place] [address] Lymphocytes #/vol (Bld) 2.68 10*3/uL Normal 1.00-4.00 [facility] Comment on above: Performed By: #### T SCR30 #### [place] [address] Lymphocytes/100 WBC (Bld) 22.2 % Normal [facility] Comment on above: Performed By: #### T SCR30 #### [place] [address] MCH Entitic mass (RBC) 30.3 pG Normal 26.0-34.0 [facility] Comment on above: Performed By: #### T SCR30 #### [place] [address] MCHC mass conc (RBC) 32.2 g/dL Normal 30.5-36.0 [facility] Comment on above: Performed By: #### T SCR30 #### [place] [address] MCV Entitic volume (RBC) 94.1 fL Normal 80.0-100.0 [facility] Comment on above: Performed By: #### T SCR30 #### [place] [address] Monocytes/100 WBC (Bld) 12.7 % Normal [facility] Comment on above: Performed By: #### T SCR30 #### [place] [address] Neutrophils/100 WBC (Bld) 64.3 % Normal [facility] Comment on above: Performed By: #### T SCR30 #### [place] [address] NRBCs 0.0 /100 WBC Normal 0 [facility] Comment on above: Performed By: #### T SCR30 #### [place] [address] Platelet mean volume Entitic volume (Bld) 10.9 fL Normal 9.0-12.7 [facility] Comment on above: Performed By: #### T SCR30 #### [place] [address] Platelets #/vol (Bld) 263 10*3/uL Normal 150-400 [facility] Comment on above: Performed By: #### T SCR30 #### [place] [address] RBC #/vol (Bld) 3.37 10*6/uL Low 3.90-5.20 [facility] Comment on above: Performed By: #### T SCR30 #### [place] [address] WBC #/vol (Bld) 12.08 10*3/uL High 3.70-11.00 [facility] Comment on above: Performed By: #### T SCR30 #### [place] [address] CONSULTon 04-02-2018 CONSULT HNO ID: [id number] Author: Jose Velasco (Pa) Service: Pain Management Author Type: Physician Feather Boner Type: Consults Filed: 04/02/2018 3:15 PM Note [...] - , CLASSIC, IN-HOSP CARE 1980 - [facility] AFTER DELIVERY - PAST SURGICAL HISTORY [...] DATE: April 02, 2018 TIME: 3:08 PM [facility] PROGRESSon 04-02-2018 Protein mass conc HNO ID: [id number] Author: Jennifer Calvo (Chicken Catcher-) David Service: Hospital Medicine Author Type: Nurse [...] with more than 50% of the total nhvx-mh-gnnb time of the visit in counseling / coordination of care. [facility] Protein mass conc HNO ID: [id number] Author: Ady Brizuela Service: General Internal Medicine [...] 1139 04/28/18 2359 03/31/182029 pneumatic compression stockings ([place], [place]) 03/31/18 2030 activity - mobilize patient ([place]) 03/31/18 1030 graduated compression stockings ([place]) VTE Prophylaxis: VTE prophylaxis appropriate SIGNATURE: Ady Brizuela MD PATIENT NAME: Minal Caputo DATE: April 02, 2018 TIME: 3:40 PM PAGER: [phone] [facility] Protein mass conc HNO ID: [id number] Author: Elaine Alcala Service: Orthopaedic Surgery Author [...] today. Elaine Alcala MD Resident, Orthopaedic Surgery [id number] April 02, 2018 10:37 AM [facility] THERAPY NTon 04-02-2018 THERAPY NT HNO ID: [id number] Author: Barbara (Pt) Bradford Service: Physical Therapy Author Type: Physical Therapist Type: Therapy (PT/OT/Speech/Resp) Filed: 04/02/2018 4:54 PM Note Text: Physical Therapy Treatment SERVICE DATE: 04/02/2018 SERVICE TIME: 1536 to 1610 ROOM: [place] [address] Recommended Discharge Disposition: Subacute/SNF Justification For Post [...] Diagnosis: Reduced mobility-other Interventions Provided: Therapeutic Exercise (11404);Therapeutic Activity (90158) Therapeutic Exercise (04876) Treatment Minutes: 14 1 unit Skilled Intervention(s): Instruction in therapeutic exercise seated TKR exercises. Verbal and tactile cuing provided . Education in HEP, POC, nonpharm pain management and importance of repositioning/activity. Performed seated TKR exercises (0x30opgm). Therapeutic Activity (65187) Treatment Minutes: 20 1 unit Skilled Intervention(s): [...] documentation corresponding to this therapy visit. SIGNATURE: Barbara Felder PT DATE: April 02, 2018 TIME: 4:53 PM [facility] THERAPY NT HNO ID: [id number] Author: Barbara (Pt) Bradford Service: Physical Therapy Author Type: Physical Therapist Type: Therapy (PT/OT/Speech/Resp) Filed: 04/02/2018 2:03 PM Note Text: Physical Therapy Treatment SERVICE DATE: 04/02/2018 SERVICE TIME: 1055 to 1118 ROOM: [place] [address] Recommended Discharge Disposition: Subacute/SNF Justification For Post [...] Diagnosis: Reduced mobility-other Interventions Provided: Therapeutic Exercise (06429) Therapeutic Exercise (85497) Treatment Minutes: 23 2 units Skilled Intervention(s): Instruction in therapeutic exercise anti-embolitics and TKR exercises. Verbal and tactile cuing provided . Education in HEP, POC, nonpharm pain management, and importance of repositioning/activity. Performed anti-embolitics and supine TKR exercises (6g44xeup bilat). Total Timed Code Treatment Minutes: 23 [...] documentation corresponding to this therapy visit. SIGNATURE: Barbara Felder PT DATE: April 02, 2018 TIME: 2:02 PM [facility] THERAPY NT HNO ID: [id number] Author: Zacarias JulianOt/L) Nasim Service: Occupational Therapy Author Type: Occupational Therapist Type: Therapy (PT/OT/Speech/Resp) Filed: 04/02/2018 9:45 AM Note Text: Occupational Therapy Treatment SERVICE DATE: 04/02/2018 SERVICE TIME: 0854 to 921 ROOM: [id number] Recommended Discharge Disposition: Subacute/SNF Justification For Post [...] daily living (ADL) Interventions Provided: Therapeutic Activity (10621);Self Senior Living Management (23185) Self Senior Living Management (87265) Treatment Minutes: 14 1 unit Skilled Intervention(s): [...] details for this therapy evaluation/treatment. SIGNATURE: Aide Sheehan, S/OT PATIENT NAME: Minal Caputo DATE: April 02, 2018 TIME: 9:35 AM I reviewed and agree with the documentation corresponding to this therapy visit. SIGNATURE: Zacarias Rouse OTR/L DATE: April 02, 2018 TIME: 9:43 AM Normal [facility] Basic Metabolic Panlon 04-01 Anion gap molar conc 12 mmol/L Normal 05-13 [facility] Comment on above: Performed By: #### C GUIDO BMP ####[place] [id number] [phone] Calcium mass conc 8.3 mg/dL Low 8.5-10.2 [facility] Comment on above: Performed By: #### C GUIDO BMP ####[facility] Chloride molar conc 102 mmol/L Normal 97-105 [facility] Comment on above: Performed By: #### C BC, BMP ####[place] [id number] CO2 molar conc 24 mmol/L Normal 22-30 [facility] Comment on above: Performed By: #### C BC, BMP ####[place] [id number] Creatinine mass conc 0.86 mg/dL Normal 0.58-0.96 [facility] Comment on above: Performed By: #### C BC, BMP ####[place] [id number] eGFR- Amer. >60 Normal >60 [facility] Comment on above: Performed By: #### C BC, BMP ####[place] [id number] GFR/1.73 sq M predicted among non-blacks MDRD vol rate/area (S/P/Bld) mL/min/{1.73_m2} Normal >60 [facility] Comment on above: Performed By: #### C BC, BMP ####[place] [id number] Glucose mass conc 152 mg/dL High 74-99 [facility] Comment on above: Performed By: #### C BC, BMP ####[place] [id number] Potassium molar conc 4.0 mmol/L Normal 3.7-5.1 [facility] Comment on above: Performed By: #### C BC, BMP ####[place] [id number] Sodium molar conc 138 mmol/L Normal 136-144 [facility] Comment on above: Performed By: #### C BC, BMP ####[place] [id number] Urea nitrogen mass conc 16 mg/dL Normal 7-21 [facility] Comment on above: Performed By: #### C BC, BMP ####[facility] [phone] CASE MANAGEMon 04-01-2018 CASE MANAGEM HNO ID: [id number] Author: Tracie (Rn) MALORIE Hancock Service: Care [...] (Osteoarthritis) of Knee Attendees Present at Rounds: Assistant Track Coach: Nurse Rcis/Feather Boner Nurse Rcis: Patient: Minal Francoisjalenlucie Pharmacy: Physical Therapy: Provider: Staff Nurse: Needs [...] April 01, 2018 TIME: 10:02 AM CSN: [id number] [facility] CASE MGT INIT Alison 2017 CASE MGT INIT KAYKAY HNO ID: [id number] Author: Tracie (Rn) MALORIE Hancock Service: Care Management Author Type: Registered Nurse Type: Care Mgt Initial Assessment Filed: 04/01/2018 10:12 AM Note Text: CARE MANAGEMENT: ASSESSMENT AND DISCHARGE PLAN SERVICE DATE: 04/01/2018 SERVICE TIME: 10:05 am PRIMARY CARE PHYSICIAN: Riat Amanda MD ADMISSION STATUS: Inpatient Needs Prior to Discharge: OT/PT Evaluation;Other: See Comment (home vs rehab TBD) MEDICAL: 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 No [...] for meeting these needs: PT / OT shantal Does the patient have an acute stroke diagnosis, or has the patient had a stroke during this admission? No Medication Adherence: I am convinced of the importance of my prescription medication: Agree completely - 0 I worry that my prescription medication will do more harm than good to me Disagree completely - 0 I feel financially burdened by my lpt-hs-circsg expenses for my prescription medication: Disagree completely [...] Disclosure Provided POTENTIAL TRANSITION PLANS Home Care Longterm Facility/Intermediate Care Facility To Be Determined Care Management Department will continue to follow. SIGNATURE: Tracie Hancock RN PATIENT NAME: Minal Caputo DATE: April 01, 2018 TIME: 10:05 AM PAGER/CONTACT #: [phone] [facility] CBCon 04-01-2018 Erythrocyte distribution width Ratio (RBC) 14.0 % Normal 11.5-15.0 [facility] Comment on above: Performed By: #### C BC, BMP ####[place] [id number] [address] [phone] Hematocrit Volume Fraction (Bld) 34.0 % Low 36.0-46.0 [facility] Comment on above: Performed By: #### C BC, BMP ####[facility] [phone] Hemoglobin mass conc (Bld) 11.1 g/dL Low 11.5-15.5 [facility] Comment on above: Performed By: #### C BC, BMP ####[facility] [phone] MCH Entitic mass (RBC) 30.4 pG Normal 26.0-34.0 [facility] Comment on above: Performed By: #### C BC, BMP ####[address] MCHC mass conc (RBC) 32.6 g/dL Normal 30.5-36.0 [facility] Comment on above: Performed By: #### C BC, BMP ####[address] MCV Entitic volume (RBC) 93.2 fL Normal 80.0-100.0 [facility] Comment on above: Performed By: #### C BC, BMP ####[address] Platelet mean volume Entitic volume (Bld) 10.9 fL Normal 9.0-12.7 [facility] Comment on above: Performed By: #### C BC, BMP ####[address] Platelets #/vol (Bld) 290 10*3/uL Normal 150-400 [facility] Comment on above: Performed By: #### C BC, BMP ####[address] RBC #/vol (Bld) 3.65 10*6/uL Low 3.90-5.20 [facility] Comment on above: Performed By: #### C BC, BMP ####[address] WBC #/vol (Bld) 15.94 10*3/uL High 3.70-11.00 [facility] Comment on above: Performed By: #### C BC, BMP ####[address] CONSULTon 04-01-2018 CONSULT HNO ID: [id number] Author: Ady Brizuela Service: General Internal Medicine [...] 04/01/2018 Neut% 55.6 03/19/2018 Lymph% 31.7 03/19/2018 [place]% 6.4 03/19/2018 Eosin% 5.5 03/19/2018 Baso% 0.8 03/19/2018 Abs Neut (ANC) 4.39 03/19/2018 Abs [place] 0.51 03/19/2018 Abs Eosin 0.44 03/19/2018 Abs [...] April 01, 2018 TIME: 8:53 AM PAGER: [phone] [facility] NURSING PROGon 04-01-2018 Protein mass conc HNO ID: [id number] Author: Pat Newman (Acn) RN Service: (none) Author Type: Advance Clinical Nurse Type: Nursing Progress Note Filed: 04/01/2018 3:43 PM Note Text: Nursing Progress Note Patient Name: Minal Caputo Patient Location: /[id number] Daily Note: Reviewed isometric and incentive spirometry [...] note was completed by: Pat Newman RN [facility] Protein mass conc HNO ID: [id number] Author: Romana Goldman, RN Service: (none) Author Type: Registered Nurse Type: Nursing Progress Note Filed: 03/31/2018 10:37 PM Note Text: Nursing Progress Note Patient Name: Minal Caputo Patient Location: [facility]/[id number] Daily Note:2045 pt drowsy, pt VSS at this time. Pt placed on continuous pulse ox in room, on 3L/O2 at 97% NC. Pt has strong and equal p/p, no N/T, no N/V, with good sensation and pulse. Call light within reach. This note was completed by: Romana Goldman, RN [facility] PROGRESSon 04-01-2018 Protein mass conc HNO ID: [id number] Author: Jennifer Calvo (Chicken Catcher-) David Service: Hospital Medicine Author Type: Nurse [...] with more than 50% of the total nmxo-cz-iikz time of the visit in counseling / coordination of care. [facility] Protein mass conc HNO ID: [id number] Author: Elaine Alcala Service: Orthopaedic Surgery Author [...] tomorrow. Elaine Alcala MD Resident, Orthopaedic Surgery [id number] 04/01/2018 12:21 PM Please page 2BONE ([phone]) from 5p-6a and on weekends for any issues. [facility] THERAPY NTon 04-01-2018 THERAPY NT HNO ID: [id number] Author: Barbara (Pt) Bradford Service: Physical Therapy Author Type: Physical Therapist Type: Therapy (PT/OT/Speech/Resp) Filed: 04/01/2018 4:00 PM Note Text: Physical Therapy Evaluation SERVICE DATE: 04/01/2018 SERVICE TIME: 1358 to 1501 ROOM: [place] [address] Recommended Discharge Disposition: Subacute/SNF Justification For Post [...] Diagnosis: Reduced mobility-other Interventions Provided: Evaluation;Therapeutic Exercise (41085);Therapeutic Activity (58791);Gait Training (19327) $ Evaluation-Low (25102) Billed Units: 1 unit Therapeutic Exercise (92485) Treatment Minutes: 20 1 unit Skilled Intervention(s): Instruction in therapeutic exercise supine TKR exercises Verbal and tactile cuing provided . Education in HEp and TKR booklet Therapeutic Activity (78274) Treatment Minutes: 10 1 unit Skilled Intervention(s): Instructed patient in supine to sit pushing with upper extremities to sit up Instructed patient in sit to supine using safe, effective technique Education with POC, precuations, nonpharm pain control techniques Gait Training (81430) Treatment Minutes: 10 1 unit Skilled Intervention(s): [...] complete details for this therapy evaluation/treatment. SIGNATURE: Barbara Felder PT PATIENT NAME: Minal Caputo DATE: April 01, 2018 TIME: 3:47 PM Physician signature certifies treatment plan of care established above for the period of 04/01/2018 through 04/15/2018. [facility] THERAPY NT HNO ID: [id number] Author: Zacarias JulianOt/L) Nasim Service: Occupational Therapy Author Type: Occupational Therapist Type: Therapy (PT/OT/Speech/Resp) Filed: 04/01/2018 1:22 PM Note Text: Occupational Therapy Evaluation SERVICE DATE: 04/01/2018 SERVICE TIME: 1125 to 1202 ROOM: [place] [address] Recommended Discharge Disposition: Subacute/SNF Justification For Post [...] of daily living (ADL) Interventions Provided: Evaluation;Self Senior Living Management (02258) $ Evaluation-Low (72523) Billed Units: 1 unit Self Senior Living Management (75754) Treatment Minutes: 22 1 unit Skilled Intervention(s): [...] (04/01/181124) Self Care Current Status (G8987): CK (04/01/18 112) Self Care Goal Status (G8988): CJ (04/01/181124) [...] to this therapy visit. SIGNATURE: Zacarias Rouse OTR/[place] DATE: April 01, 2018 TIME: 1:22 PM [facility] THERAPY NT HNO ID: [id number] Author: Barbara JulianPtStan Felder Service: Physical Therapy Author Type: Physical Therapist Type: Therapy (PT/OT/Speech/Resp) Filed: 04/01/2018 11:59 AM Note Text: PHYSICAL THERAPY MISSED VISIT SERVICE DATE: 04/01/2018 SERVICE TIME: 1145 to 1145 ROOM: [place] [address] Attempted Evaluation. Patient not seen due to Another service at bedside. OT bedside SIGNATURE: Barbara Felder PT PATIENT NAME: Minal Caputo DATE: April 01, 2018 TIME: 11:58 AM [facility] ANES Angel 03-31-2018 ANES POST HNO ID: [id number] Author: Day Walker Service: Anesthesiology Author Type: [...] 31, 2018 TIME: 5:16 PM PAGER/CONTACT #: [facility] ANES PREOPon 03-31-2018 ANES PREOP HNO ID: [id number] Author: Skye An Service: Anesthesiology Author Type: [...] - , CLASSIC, IN-HOSP CARE 1980 - [facility] AFTER DELIVERY - PAST SURGICAL HISTORY [...] (XYLOCAINE) 0.1-0.2 mL INTRADERMAL PRN Donte L [place] lactated ringers infusion 5-30 mL/hr INTRAVENOUS CONTINUOUS Donte L [place] Last Rate: 30 mL/hr at 03/31/18 1150 30 mL/hr at 03/31/18 1150 celecoxib 200 mg cap(s) (CeleBREX) 200 mg ORAL Pre-Op Once Donte L [place] ceFAZolin 3 g in D5W 100 mL (ANCEF) 3 g INTRAVENOUS ONCE Donte Trevino Allergies: ALLERGIES Allergen Reactions - Adhesive Bandages [...] March 31, 2018 TIME: 12:06 PM CSN: [id number] [facility] BRIEF OP NOTon 03-31-2018 BRIEF OP NOT HNO ID: [id number] Author: Donte Trevino Service: Orthopaedic Surgery Author Type: Physician Type: Brief Op Note Filed: 03/31/2018 4:59 PM Note Text: BRIEF OP NOTE LOG ID: [id number] Surgery/Procedure Date: 03/31/2018 Incision/Procedure Start Time: 1:54 PM Incision Close/Procedure End Time: 4:40 PM Surgeon(s)/Proceduralist(s ) and Feather Boner(s): Surgeon(s) and Role: * Donte Trevino - Primary * Elaine (Res) Fredrick - Resident - Assisting * Froylan (Res) Denise - Resident - Assisting Procedure(s): bilateral TKAs Anesthesia: General Findings: DJD Estimated Blood Loss: 100 mls Specimens: None Complications: Fx medial tibial plateau right tibia Pre-Op/Pre-Procedure Diagnosis: As below Post-Op/Post-Procedure Diagnosis: Arthritis of both knees [M17.0] SIGNATURE: Elaine Alcala MD PATIENT NAME: Minal Caputo DATE: March 31, 2018 TIME: 4:50 PM PAGER/CONTACT #: [facility] NURSING PROGon 03-31-2018 Protein mass conc HNO ID: [id number] Author: Amy JulianRn) MALORIE Mcdonnell Service: (none) Author Type: Registered Nurse Type: Nursing Progress Note Filed: 03/31/2018 6:33 PM Note Text: Nursing Progress Note Patient Name: Minal Caputo [facility] Daily Note: Patient with decreased respirations and [...] note was completed by: Amy Mcdonnell RN [facility] Protein mass conc HNO ID: [id number] Author: Rosa JulianRn) MALORIE Zarco Service: Nursing Author Type: Registered Nurse Type: Nursing Progress Note Filed: 03/31/2018 4:54 PM Note Text: Discharge Status: Patient is Awakening, and is extubated. Skin condition was warm. Transported to recovery room via bed with siderails up. Accompanied by body masker and resident. [facility] Protein mass conc HNO ID: [id number] Author: Rosa (Rn) MALORIE Zarco Service: Nursing Author Type: Registered [...] of exposure and providing warm irrigation fluid. [facility] Protein mass conc HNO ID: [id number] Author: Lolis JulianRn) MALORIE Jin Service: (none) Author Type: Registered Nurse Type: Nursing Progress Note Filed: 03/31/2018 11:48 AM Note Text: Nursing Progress Note Patient Name: Minal Caputo [facility] [place] Daily Note: Pt aware of procedure. Alert and oriented x 3. Pt states just discomfort in bilateral knees while lying in the bed. 2+ dp/pt pulses to bilateral feet. Adequate push/pulls to bilateral feet. IV tolerated well. IV fluids running. Safety maintained. This note was completed by: Lolis Jin RN [facility] OPERATIVE NOon 03-31-2018 OPERATIVE NO HNO ID: [id number] Author: Donte Trevino Service: Orthopaedic Surgery Author Type: Physician Type: Operative Report Filed: 03/31/2018 5:40 PM Note Text: OPERATIVE/PROCEDURE REPORT LOG ID: [id number] Surgery/Procedure Date: 03/31/2018 Incision/Procedure Start Time: 1:54 PM Incision Close/Procedure End Time: 4:40 PM Surgeon(s)/Proceduralist(s ) and Feather Boner(s): Surgeon(s) and Role: * Donte Trevino - [...] Implant Name Type Inv. Item Serial No. Dining Room Host Lot No. LRB Model Num No. Used CEMENT SIMPLEX P BONE RADIOPAQUE FULL DOSE - [id number] Cement / Putty CEMENT SIMPLEX P BONE RADIOPAQUE FULL DOSE ANTONI [id number] Right [id number] CEMENT SIMPLEX P BONE RADIOPAQUE FULL DOSE - [id number] Cement / Putty CEMENT SIMPLEX P BONE RADIOPAQUE FULL DOSE ANTONI [id number] Left [id number] BASEPLATE TRIATHLON 4 UNIVERSAL COCR TIBIAL TOTAL STABILIZE CEMENTED KNEE - [id number] Plate BASEPLATE TRIATHLON 4 UNIVERSAL COCR TIBIAL TOTAL STABILIZE CEMENTED KNEE STRY/[employer] [id number] Left [id number] 1 COMPONENT TRIATHLON 33MM X3 9MM PATELLAR SYMMETRIC KNEE SUPERIOR - [id number] Joint - Knee COMPONENT TRIATHLON 33MM X3 9MM PATELLAR SYMMETRIC KNEE SUPERIOR STRY/[employer] [id number] Left 5550-L-339 1 COMPONENT TRIATHLON 4 FEMORAL CEMENTED POSTERIOR STABILIZE KNEE LEFT - [id number] Joint COMPONENT TRIATHLON 4 FEMORAL CEMENTED POSTERIOR STABILIZE KNEE LEFT STRY/[employer] [id number] Left [id number] 1 INSERT TRIATHLON 4 X3 11MM TIBIAL BEARING POSTERIOR STABILIZE KNEE - [id number] Joint - Knee INSERT TRIATHLON 4 X3 11MM TIBIAL BEARING POSTERIOR STABILIZE KNEE STRY/[employer] [id number] Left [id number] 1 CEMENT SIMPLEX P BONE RADIOPAQUE FULL DOSE - [id number] Cement / Putty CEMENT SIMPLEX P BONE RADIOPAQUE FULL DOSE ANTONI [id number] Right [id number] 1 COMPONENT TRIATHLON 33MM X3 9MM PATELLAR SYMMETRIC KNEE SUPERIOR - [id number] Joint - Knee COMPONENT TRIATHLON 33MM X3 9MM PATELLAR SYMMETRIC KNEE SUPERIOR STRY/[employer] [id number] Right 5550-L-339 1 BASEPLATE TRIATHLON 4 UNIVERSAL COCR TIBIAL TOTAL STABILIZE CEMENTED KNEE - [id number] Plate BASEPLATE TRIATHLON 4 UNIVERSAL COCR TIBIAL TOTAL STABILIZE CEMENTED KNEE STRY/[employer] [id number] Right [id number] 1 COMPONENT TRIATHLON 4 FEMORAL CEMENTED POSTERIOR STABILIZE KNEE RIGHT - [id number] Joint - Knee COMPONENT TRIATHLON 4 FEMORAL CEMENTED POSTERIOR STABILIZE KNEE RIGHT STRY/[employer] [id number] Right [id number] 1 STEM TRIATHLON 12MM COCR 50MM FEMORAL CEMENTED TOTAL STABILIZED KNEE - [id number] Joint - Knee STEM TRIATHLON 12MM COCR 50MM FEMORAL CEMENTED TOTAL STABILIZED KNEE STRY/[employer] [id number] Right [id number] 1 SCREW LCP 6.5MM 8MM PARTIAL THREAD STAINLESS STEEL 45MM 32MM BONE LARGE - [id number] Screw SCREW LCP 6.5MM 8MM PARTIAL THREAD STAINLESS STEEL 45MM 32MM BONE LARGE [employer] Right 217.045 1 WASHER LCP 13MM 6.6MM STAINLESS STEEL ORTHOPEDIC 4.5-7.3MM SCREW NONSTERILE - [id number] Screw WASHER LCP 13MM 6.6MM STAINLESS STEEL ORTHOPEDIC 4.5-7.3MM SCREW NONSTERILE [employer] Right 219.99 2 SCREW LCP 6.5MM 8MM FULL THREAD STAINLESS STEEL 35MM BONE LARGE HEXAGONAL - [id number] Screw SCREW LCP 6.5MM 8MM FULL THREAD STAINLESS STEEL 35MM BONE LARGE HEXAGONAL [employer] Right 218.035 1 INSERT TRIATHLON 4 X3 9MM TIBIAL POSTERIOR STABILIZE KNEE - [id number] Joint - Knee INSERT TRIATHLON 4 X3 9MM TIBIAL POSTERIOR STABILIZE KNEE STRY/[employer] [id number] Right [id number] 1 PROBLEM LIST: ACTIVE PROBLEM LIST Spinal [...] cuts were made for the femoral component. straw hat brim cutter operator was used to remove notch bone.Attention was [...] 31, 2018 TIME: 5:01 PM PAGER/CONTACT #: [facility] PT EDon 03-31-2018 PT ED HNO ID: [id number] Author: Karly (Rn) MALORIE Mendoza Service: Nursing [...] None Electronically Signed By: Karly Mendoza RN [facility] XR KNEE 2V AP/LAT RTon 03-31 [...] recent surgery. IMPRESSION: Satisfactory postoperative right knee. Cryptographic Clerk: BEA Transcribe Date/Time: Mar 31 2018 6:26P Dictated by : GARRETT REYES MD This examination was interpreted and the report reviewed and electronically signed by: GARRETT REYES MD on Mar 31 2018 6:27PM EST [id number] [facility] NURSING PROGon 03-26-2018 Protein mass conc HNO ID: [id number] Author: Poornima (Rn) MALORIE Vance Service: (none) [...] 12 Months: Yes: Date: 03/19/18, Comment: in [facility] Last Menstrual Period: LMP Date: N/A Postmenopausal >1yr: Yes, S/P Hysterectomy: N/A BMI Percentile (PEDS): 46 Risk Assessment: N/A Anesthesia Review: N/A Narrative: Awaiting allergy consult for pcn. appt. 03/27/18 730am Pre-op Considerations: N/A Chart Check: IN PROGRESS Jennifer Pack RN March 26, 2018 12:34 PM See [facility] encounters (03/27/18) for office visit with Dr. Roldan, note in [facility] includes the followin. Patient was informed of the skin testing result. Since she also has (-) oral challenge, she has no penicillin allergy Chart check complete. 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 She is referred [...] - , [facility] - PAST SURGICAL HISTORY OF [...] 10:47 AM Signed Penicillin G Sodium Lot #[id number] Exp. 03/27/18 [facility] NDC: 6017-8808-50 Prepen Lot #[id number] Exp. 06/13 [place]: [id number] 0.9% Sodium chloride Inj Lot# [id number] Exp. 07/26/2019 [facility] NDC:7563-2559-12 Skin testing at 15 minute intervals. Prick [...] ?0/0 ORAL Antibiotic?Challenge ? Amoxicillin 250mg/5ml Lot: [id number] Exp: 04/03/2018 ? Given at 0830 Dose:?250 mg/5ml Observed for 60 minutes. Patient denies any symptoms of adverse reaction (rash/hives/itching/swelli ng/breathing difficulties). ? Patient was evaluated by physician and discharged from clinic at 0930. [facility] XR KNEE 4V AP/PA BOTH+LAT/ME R [...] Degenerative changes with no acute process seen. Cryptographic Clerk: BEA Transcribe Date/Time: Feb 24 2018 11:07A Dictated by : MAYITO MCDONALD MD This examination was interpreted and the report reviewed and electronically signed by: MAYITO MCDONALD MD on Feb 24 2018 12:22PM EST [id number] [facility] XR KNEE 4V AP/PA BOTH+LAT/ME R [...] Degenerative changes with no acute process seen. Cryptographic Clerk: BEA Transcribe Date/Time: Feb 24 2018 11:07A Dictated by : MAYITO MCDONALD MD This examination was interpreted and the report reviewed and electronically signed by: MAYITO MCDONALD MD on Feb 24 2018 12:22PM EST [id number] [facility] No Panel Information [facility] Vital Signs Date Time Vital Sign Value Performing Clinician Facility 04-16-2025 07:46-0400 Body height 157.5 cm Boom Tim MD Work Phone: [facility] 04-16-2025 07:46-0400 Body mass index (BMI) [Ratio] 47.66 kg/m2 Boom Tim MD Work Phone: [facility] 04-16-2025 07:46-0400 Body weight 118.2 kg Boom Tmi MD Work Phone: [facility] 04-16-2025 07:46-0400 Diastolic blood pressure 63 mm[Hg] Boom Tim MD Work Phone: [facility] 04-16-2025 07:46-0400 Heart rate 81 /min Boom Tim MD Work Phone: [facility] 04-16-2025 07:46-0400 SaO2% (BldA) [Mass fraction] 98 % Boom Tim MD Work Phone: [facility] 04-16-2025 07:46-0400 Systolic blood pressure 149 mm[Hg] Boom Tim MD Work Phone: [facility] 04-13-2025 14:43-0400 Body height 157.5 cm Mitch Neri MD Work Phone: [facility] 04-13-2025 14:43-0400 Body mass index (BMI) [Ratio] 48.37 kg/m2 Mitch Neri MD Work Phone: [facility] 04-13-2025 14:43-0400 Body temperature 97.59 [degF] Mitch Neri MD Work Phone: [facility] 04-13-2025 14:43-0400 Body weight 119.95 kg Mitch Neri MD Work Phone: [facility] 04-13-2025 14:43-0400 Diastolic blood pressure 53 mm[Hg] Mitch Neri MD Work Phone: [facility] 04-13-2025 14:43-0400 Heart rate 72 /min Mitch Neri MD Work Phone: [facility] 04-13-2025 14:43-0400 Respiratory rate 18 /min Mitch Neri MD Work Phone: [facility] 04-13-2025 14:43-0400 SaO2% (BldA) [Mass fraction] 98 % Mitch Neri MD Work Phone: [facility] 04-13-2025 14:43-0400 Systolic blood pressure 151 mm[Hg] Mitch Neri MD Work Phone: [facility] 04-05-2025 13:07-0400 Body mass index (BMI) [Ratio] 48.58 kg/m2 Rakesh Lamb DO Work Phone: [facility] 04-05-2025 13:070400 Body temperature 98.4 [degF] Rakesh Lamb DO Work Phone: [facility] 04-05-2025 13:07-0400 Body weight 120.47 kg Rakesh Lamb DO Work Phone: [facility] 04-05-2025 13:07-0400 Diastolic blood pressure 72 mm[Hg] Rakesh Lamb DO Work Phone: [facility] 04-05-2025 13:07-0400 Heart rate 66 /min Rakesh Lamb DO Work Phone: [facility] 04-05-2025 13:07-0400 SaO2% (BldA) [Mass fraction] 96 % Rakesh Lamb DO Work Phone: [facility] 04-05-2025 13:07-0400 Systolic blood pressure 134 mm[Hg] Rakesh Lamb DO Work Phone: [facility] 03-19-2025 10:28-0400 Body height 157.5 cm [facility] 03-19-2025 10:28-0400 Body mass index (BMI) [Ratio] 48.83 kg/m2 [facility] 03-19-2025 10:28-0400 Body weight 121.11 kg [facility] 03-19-2025 10:28-0400 Respiratory rate 16 /min [facility] 02-23-2025 10:17-0400 Body temperature 97.2 [degF] ZEN Mann MD Work Phone: [facility] 02-23-2025 10:17-0400 Diastolic blood pressure 70 mm[Hg] ZEN Mann MD Work Phone: [facility] 02-23-2025 10:17-0400 Respiratory rate 18 /min ZEN Mann MD Work Phone: [facility] 02-23-2025 10:17-0400 SaO2% (BldA) [Mass fraction] 97 % NA Donovan HATHAWAY Work Phone: [facility] 02-23-2025 10:17-0400 Systolic blood pressure 156 mm[Hg] NA Donovan HATHAWAY Work Phone: [facility] 02-23-2025 09:23-0400 Heart rate 73 /min NA Donovan HATHAWAY Work Phone: [facility] 02-19-2025 08:20-0400 Body height 157.5 cm Minal Deitzer DO Work Phone: [facility] 02-19-2025 08:20-0400 Body mass index (BMI) [Ratio] 48.95 kg/m2 Minal Deitzer DO Work Phone: [facility] 02-19-2025 08:20-0400 Body weight 121.4 kg Minal Deitzer DO Work Phone: [facility] 02-19-2025 08:20-0400 Diastolic blood pressure 75 mm[Hg] Minal Deitzer DO Work Phone: [facility] 02-19-2025 08:20-0400 Heart rate 71 /min Minal Deitzer DO Work Phone: [facility] 02-19-2025 08:20-0400 Systolic blood pressure 131 mm[Hg] Minal Deitzer DO Work Phone: [facility] 02-15-2025 11:09-0400 Body height 157.5 cm Gómez Baker MD Work Phone: [facility] 02-15-2025 11:09-0400 Body mass index (BMI) [Ratio] 50.83 kg/m2 Gómez Baker MD Work Phone: [facility] 02-15-2025 11:09-0400 Body weight 126.1 kg Gómez Baker MD Work Phone: [facility] 02-15-2025 11:09-0400 Diastolic blood pressure 4 mm[Hg] Gómez Baker MD Work Phone: [facility] 02-15-2025 11:09-0400 Heart rate 71 /min Gómez Baker MD Work Phone: [facility] 02-15-2025 11:09-0400 SaO2% (BldA) [Mass fraction] 97 % Gómez Baker MD Work Phone: [facility] 02-15-2025 11:09-0400 Systolic blood pressure 98 mm[Hg] Gómez Baker MD Work Phone: [facility] 12-30-2024 09:31-0400 Body height 157.5 cm Mitch Neri MD Work Phone: [facility] 12-30-2024 09:31-0400 Body mass index (BMI) [Ratio] 50.99 kg/m2 Mitch Neri MD Work Phone: [facility] 12-30-2024 09:31-0400 Body temperature 97.9 [degF] Mitch Neri MD Work Phone: [facility] 12-30-2024 09:31-0400 Body weight 126.45 kg Mitch Neri MD Work Phone: [facility] 12-30-2024 09:31-0400 Diastolic blood pressure 50 mm[Hg] Mitch Neri MD Work Phone: [facility] 12-30-2024 09:31-0400 Heart rate 72 /min Mitch Neri MD Work Phone: [facility] 12-30-2024 09:31-0400 Respiratory rate 18 /min Mitch Neri MD Work Phone: [facility] 12-30-2024 09:31-0400 SaO2% (BldA) [Mass fraction] 97 % Mitch Neri MD Work Phone: [facility] 12-30-2024 09:31-0400 Systolic blood pressure 124 mm[Hg] Mitch Neri MD Work Phone: [facility] 10-15-2024 08:42-0500 Body mass index (BMI) [Ratio] 50.4 kg/m2 Sierra Atkins MD Work Phone: [facility] 10-15-2024 08:42-0500 Body temperature 97.5 [degF] Sierra Atkins MD Work Phone: [facility] 10-15-2024 08:42-0500 Body weight 125 kg Sierra Atkins MD Work Phone: [facility] 10-15-2024 08:42-0500 Diastolic blood pressure 86 mm[Hg] Sierra Atkins MD Work Phone: [facility] 10-15-2024 08:42-0500 Heart rate 79 /min Sierra Atkins MD Work Phone: [facility] 10-15-2024 08:42-0500 SaO2% (BldA) [Mass fraction] 97 % Sierra Atkins MD Work Phone: [facility] 10-15-2024 08:42-0500 Systolic blood pressure 154 mm[Hg] Sierra Atkins MD Work Phone: [facility] 10-02-2024 13:31-0500 Diastolic blood pressure 69 mm[Hg] Mitch Neri MD Work Phone: [facility] Comment on above: Bp recheck 10-02-2024 13:31-0500 Systolic blood pressure 174 mm[Hg] Mitch Neri MD Work Phone: [facility] Comment on above: Bp recheck 10-02-2024 13:29-0500 Body height 157.5 cm Mitch Neri MD Work Phone: [facility] 10-02-2024 13:29-0500 Body mass index (BMI) [Ratio] 52.06 kg/m2 Mitch Neri MD Work Phone: [facility] 10-02-2024 13:29-0500 Body temperature 97 [degF] Mitch Neri MD Work Phone: [facility] 10-02-2024 13:29-0500 Body weight 129.1 kg Mitch Neri MD Work Phone: [facility] 10-02-2024 13:29-0500 Heart rate 83 /min Mitch Neri MD Work Phone: [facility] 10-02-2024 13:29-0500 Respiratory rate 18 /min Mitch Neri MD Work Phone: [facility] 10-02-2024 13:29-0500 SaO2% (BldA) [Mass fraction] 99 % Mitch Neri MD Work Phone: [facility] 07-16-2024 08:33-0500 Body height 157.5 cm Mitch Neri MD Work Phone: [facility] 07-16-2024 08:33-0500 Body mass index (BMI) [Ratio] 51.33 kg/m2 Mitch Neri MD Work Phone: [facility] 07-16-2024 08:33-0500 Body temperature 98.1 [degF] Mitch Neri MD Work Phone: [facility] 07-16-2024 08:33-0500 Body weight 127.3 kg Mitch Neri MD Work Phone: [facility] 07-16-2024 08:33-0500 Diastolic blood pressure 42 mm[Hg] Mitch Neri MD Work Phone: [facility] 07-16-2024 08:33-0500 Heart rate 73 /min Mitch Neri MD Work Phone: [facility] 07-16-2024 08:33-0500 Respiratory rate 18 /min Mitch Neri MD Work Phone: [facility] 07-16-2024 08:33-0500 SaO2% (BldA) [Mass fraction] 99 % Mitch Neri MD Work Phone: [facility] 07-16-2024 08:33-0500 Systolic blood pressure 121 mm[Hg] Mitch Neri MD Work Phone: [facility] 07-15-2024 14:03-0500 Diastolic blood pressure 72 mm[Hg] Sandy Mcgregor MD, PhD Work Phone: [facility] 07-15-2024 14:03-0500 Heart rate 77 /min Sandy Mcgregor MD, PhD Work Phone: [facility] 07-15-2024 14:03-0500 Systolic blood pressure 126 mm[Hg] Sandy Mcgregor MD, PhD Work Phone: [facility] 06-10-2024 09:21-0400 Body height 157.5 cm Sunny Jenkins MD Work Phone: [facility] 06-10-2024 09:21-0400 Body mass index (BMI) [Ratio] 50.85 kg/m2 Sunny Jenkins MD Work Phone: [facility] 06-10-2024 09:21-0400 Body temperature 98.2 [degF] Sunny Jenkins MD Work Phone: [facility] 06-10-2024 09:21-0400 Body weight 126.1 kg Sunny Jenkins MD Work Phone: [facility] 06-10-2024 09:21-0400 Diastolic blood pressure 68 mm[Hg] Sunny Jenkins MD Work Phone: [facility] 06-10-2024 09:21-0400 Heart rate 72 /min Sunny Jenkins MD Work Phone: [facility] 06-10-2024 09:21-0400 SaO2% (BldA) [Mass fraction] 98 % Sunny Jenkins MD Work Phone: [facility] 06-10-2024 09:21-0400 Systolic blood pressure 128 mm[Hg] Sunny Jenkins MD Work Phone: [facility] 06-03-2024 13:03-0400 Body height 157.5 cm Mitch Neri MD Work Phone: [facility] 06-03-2024 13:03-0400 Body mass index (BMI) [Ratio] 50.12 kg/m2 Mitch Neri MD Work Phone: [facility] 06-03-2024 13:03-0400 Body temperature 97.9 [degF] Mitch Neri MD Work Phone: [facility] 06-03-2024 13:03-0400 Body weight 124.3 kg Mitch Neri MD Work Phone: [facility] 06-03-2024 13:03-0400 Diastolic blood pressure 83 mm[Hg] Mitch Neri MD Work Phone: [facility] 06-03-2024 13:03-0400 Heart rate 72 /min Mitch Neri MD Work Phone: [facility] 06-03-2024 13:03-0400 Respiratory rate 18 /min Mitch Neri MD Work Phone: [facility] 06-03-2024 13:03-0400 SaO2% (BldA) [Mass fraction] 96 % Mitch Neri MD Work Phone: [facility] 06-03-2024 13:03-0400 Systolic blood pressure 142 mm[Hg] Mitch Neri MD Work Phone: [facility] 05-19-2024 14:01-0400 Body height 157.5 cm [facility] 1 Work Phone: [facility] 05-19-2024 14:01-0400 Body mass index (BMI) [Ratio] 50.81 kg/m2 [facility] 1 Work Phone: [facility] 05-19-2024 14:01-0400 Body temperature 98.2 [degF] [facility] 1 Work Phone: [facility] 05-19-2024 14:01-0400 Body weight 126 kg [facility] 1 Work Phone: [facility] 05-19-2024 14:01-0400 Diastolic blood pressure 82 mm[Hg] [facility] 1 Work Phone: [facility] 05-19-2024 14:01-0400 Heart rate 81 /min [facility] 1 Work Phone: [facility] 05-19-2024 14:01-0400 Respiratory rate 16 /min P[facility] 1 Work Phone: [facility] 05-19-2024 14:01-0400 SaO2% (BldA) [Mass fraction] 96 % [facility] 1 Work Phone: [facility] 05-19-2024 14:01-0400 Systolic blood pressure 145 mm[Hg] Pacc 1 Work Phone: [facility] 05-05-2024 14:06-0400 Body mass index (BMI) [Ratio] 54.87 kg/m2 Sandy Mcgregor MD, PhD Work Phone: [facility] 05-05-2024 14:06-0400 Body weight 128.1 kg Sandy Mcgregor MD, PhD Work Phone: [facility] 05-05-2024 14:06-0400 Diastolic blood pressure 56 mm[Hg] Sandy Mcgregor MD, PhD Work Phone: [facility] 05-05-2024 14:06-0400 Heart rate 72 /min Sandy Mcgregor MD, PhD Work Phone: [facility] 05-05-2024 14:06-0400 Systolic blood pressure 120 mm[Hg] Sandy Mcgregor MD, PhD Work Phone: [facility] 04-21-2024 09:37-0400 Body height 152.8 cm Mitch Neri MD Work Phone: [facility] 04-21-2024 09:37-0400 Body mass index (BMI) [Ratio] 54.25 kg/m2 Mitch Neri MD Work Phone: [facility] 04-21-2024 09:37-0400 Body temperature 97.7 [degF] Mitch Neri MD Work Phone: [facility] 04-21-2024 09:37-0400 Body weight 126.65 kg Mitch Neri MD Work Phone: [facility] 04-21-2024 09:37-0400 Diastolic blood pressure 64 mm[Hg] Mitch Neri MD Work Phone: [facility] 04-21-2024 09:37-0400 Heart rate 78 /min Mitch Neri MD Work Phone: [facility] 04-21-2024 09:37-0400 Respiratory rate 18 /min Mitch Neri MD Work Phone: [facility] 04-21-2024 09:37-0400 SaO2% (BldA) [Mass fraction] 95 % Mitch Neri MD Work Phone: [facility] 04-21-2024 09:37-0400 Systolic blood pressure 141 mm[Hg] Mitch Neri MD Work Phone: [facility] 03-19-2024 09:01-0400 Body mass index (BMI) [Ratio] 52.73 kg/m2 Josef Austin MD Work Phone: [facility] 03-19-2024 09:01-0400 Body temperature 97.2 [degF] Josef Austin MD Work Phone: [facility] 03-19-2024 09:01-0400 Body weight 123.1 kg Josef Austin MD Work Phone: [facility] 03-19-2024 09:01-0400 Diastolic blood pressure 71 mm[Hg] Josef Austin MD Work Phone: [facility] 03-19-2024 09:01-0400 Heart rate 72 /min Josef Austin MD Work Phone: [facility] 03-19-2024 09:01-0400 Respiratory rate 18 /min Josef Austin MD Work Phone: [facility] 03-19-2024 09:01-0400 SaO2% (BldA) [Mass fraction] 99 % Josef Austin MD Work Phone: [facility] 03-19-2024 09:01-0400 Systolic blood pressure 159 mm[Hg] Josef Austin MD Work Phone: [facility] 03-11-2024 09:16-0400 Body mass index (BMI) [Ratio] 52.47 kg/m2 Josef Austin MD Work Phone: [facility] 03-11-2024 09:16-0400 Body temperature 97.9 [degF] Josef Austin MD Work Phone: [facility] 03-11-2024 09:16-0400 Body weight 122.5 kg Josef Austin MD Work Phone: [facility] 03-11-2024 09:16-0400 Diastolic blood pressure 80 mm[Hg] Josef Austin MD Work Phone: [facility] 03-11-2024 09:16-0400 Heart rate 70 /min Josef Austin MD Work Phone: [facility] 03-11-2024 09:16-0400 Respiratory rate 18 /min Josef Austin MD Work Phone: [facility] 03-11-2024 09:16-0400 SaO2% (BldA) [Mass fraction] 98 % Josef Austin MD Work Phone: [facility] 03-11-2024 09:16-0400 Systolic blood pressure 141 mm[Hg] Josef Austin MD Work Phone: [facility] 03-03-2024 15:58-0400 Body height 152.8 cm Mitch Neri MD Work Phone: [facility] 03-03-2024 15:58-0400 Body mass index (BMI) [Ratio] 52.85 kg/m2 Mitch Neri MD Work Phone: [facility] 03-03-2024 15:58-0400 Body temperature 98.01 [degF] Mitch Neri MD Work Phone: [facility] 03-03-2024 15:58-0400 Body weight 123.4 kg Mitch Neri MD Work Phone: [facility] 03-03-2024 15:58-0400 Diastolic blood pressure 83 mm[Hg] Mitch Neri MD Work Phone: [facility] 03-03-2024 15:58-0400 Heart rate 71 /min Mitch Neri MD Work Phone: [facility] 03-03-2024 15:58-0400 Respiratory rate 16 /min Mitch Neri MD Work Phone: [facility] 03-03-2024 15:58-0400 SaO2% (BldA) [Mass fraction] 96 % Mitch Neri MD Work Phone: [facility] 03-03-2024 15:58-0400 Systolic blood pressure 157 mm[Hg] Mitch Neri MD Work Phone: [facility] 02-07-2024 10:06-0400 Body mass index (BMI) [Ratio] 51.61 kg/m2 Josef Austin MD Work Phone: [facility] 02-07-2024 10:06-0400 Body temperature 96.91 [degF] Josef Austin MD Work Phone: [facility] 02-07-2024 10:06-0400 Body weight 120.5 kg Josef Austin MD Work Phone: [facility] 02-07-2024 10:06-0400 Diastolic blood pressure 57 mm[Hg] Josef Austin MD Work Phone: [facility] 02-07-2024 10:06-0400 Heart rate 75 /min Josef Austin MD Work Phone: [facility] 02-07-2024 10:06-0400 Respiratory rate 18 /min Josef Austin MD Work Phone: [facility] 02-07-2024 10:06-0400 SaO2% (BldA) [Mass fraction] 96 % Josef Austin MD Work Phone: [facility] 02-07-2024 10:06-0400 Systolic blood pressure 105 mm[Hg] Josef Austin MD Work Phone: [facility] 01-28-2024 08:19-0400 Body height 157.5 cm Sunny Jenkins MD Work Phone: [facility] 01-28-2024 08:19-0400 Body mass index (BMI) [Ratio] 47.74 kg/m2 Sunny Jenkins MD Work Phone: [facility] 01-28-2024 08:19-0400 Body temperature 98.01 [degF] Sunny Jenkins MD Work Phone: [facility] 01-28-2024 08:19-0400 Body weight 118.39 kg Sunny Jenkins MD Work Phone: [facility] 01-28-2024 08:19-0400 Diastolic blood pressure 74 mm[Hg] Sunny Jenkins MD Work Phone: [facility] 01-28-2024 08:19-0400 Heart rate 78 /min Sunny Jenkins MD Work Phone: [facility] 01-28-2024 08:19-0400 SaO2% (BldA) [Mass fraction] 93 % Sunny Jenkins MD Work Phone: [facility] 01-28-2024 08:19-0400 Systolic blood pressure 122 mm[Hg] Sunny Jenkins MD Work Phone: [facility] 01-21-2024 13:53-0400 Body height 152.8 cm Mitch Neri MD Work Phone: [facility] 01-21-2024 13:53-0400 Body mass index (BMI) [Ratio] 51.14 kg/m2 Mitch Neri MD Work Phone: [facility] 01-21-2024 13:53-0400 Body temperature 97.7 [degF] Mitch Neri MD Work Phone: [facility] 01-21-2024 13:53-0400 Body weight 119.4 kg Mitch Neri MD Work Phone: [facility] 01-21-2024 13:53-0400 Diastolic blood pressure 75 mm[Hg] Mitch Neri MD Work Phone: [facility] 01-21-2024 13:53-0400 Heart rate 109 /min Mitch Neri MD Work Phone: [facility] 01-21-2024 13:53-0400 Respiratory rate 16 /min Mitch Neri MD Work Phone: [facility] 01-21-2024 13:53-0400 SaO2% (BldA) [Mass fraction] 98 % Mitch Neri MD Work Phone: [facility] 01-21-2024 13:53-0400 Systolic blood pressure 131 mm[Hg] Mitch Neri MD Work Phone: [facility] 01-14-2024 12:55-0400 Body height 152.8 cm Cathy Templeton PA-C Work Phone: [facility] 01-14-2024 12:55-0400 Body mass index (BMI) [Ratio] 51.57 kg/m2 Cathy Yokasta PA-C Work Phone: [facility] 01-14-2024 12:55-0400 Body temperature 97.7 [degF] Cathy Yokasta PA-C Work Phone: [facility] 01-14-2024 12:55-0400 Body weight 120.4 kg Cathy Yokasta PA-C Work Phone: [facility] 01-14-2024 12:55-0400 Diastolic blood pressure 71 mm[Hg] Cathy Yokasta PA-C Work Phone: [facility] 01-14-2024 12:55-0400 Heart rate 82 /min Cathy Yokasta PA-C Work Phone: [facility] 01-14-2024 12:55-0400 Respiratory rate 16 /min Cathy Yokasta PA-C Work Phone: [facility] 01-14-2024 12:55-0400 SaO2% (BldA) [Mass fraction] 100 % Cathy Yokasta PA-C Work Phone: [facility] 01-14-2024 12:55-0400 Systolic blood pressure 128 mm[Hg] Cathy Yokasta PA-C Work Phone: [facility] 01-07-2024 12:51-0400 Body mass index (BMI) [Ratio] 51.05 kg/m2 Mitch Neri MD Work Phone: [facility] 01-07-2024 12:51-0400 Body temperature 97.9 [degF] Mitch Neri MD Work Phone: [facility] 01-07-2024 12:51-0400 Body weight 119.2 kg Mitch Neri MD Work Phone: [facility] 01-07-2024 12:51-0400 Diastolic blood pressure 44 mm[Hg] Mitch Neri MD Work Phone: [facility] 01-07-2024 12:51-0400 Heart rate 86 /min Mitch Neri MD Work Phone: [facility] 01-07-2024 12:51-0400 Respiratory rate 18 /min Mitch Neri MD Work Phone: [facility] 01-07-2024 12:51-0400 SaO2% (BldA) [Mass fraction] 97 % Mitch Neri MD Work Phone: [facility] 01-07-2024 12:51-0400 Systolic blood pressure 116 mm[Hg] Mitch Neri MD Work Phone: [facility] 01-06-2024 10:20-0400 Body height 157.48 cm [facility] 01-06-2024 10:20-0400 Body mass index (BMI) [Ratio] 47.7 kg/m2 [facility] 01-06-2024 10:20-0400 Body temperature 97.2 [degF] [facility] 01-06-2024 10:20-0400 Body weight 118.44 kg [facility] 01-06-2024 10:20-0400 Diastolic blood pressure 91 mm[Hg] [facility] 01-06-2024 10:20-0400 Heart rate 118 /min [facility] 01-06-2024 10:20-0400 Respiratory rate 20 /min [facility] 01-06-2024 10:20-0400 SaO2% (BldA) [Mass fraction] 98 % [facility] 01-06-2024 10:20-0400 Systolic blood pressure 146 mm[Hg] [facility] 12-31-2023 11:20-0400 Body temperature 98.29 [degF] Chair Francine Work Phone: [facility] 12-31-2023 11:20-0400 Diastolic blood pressure 82 mm[Hg] Chair Darrington Work Phone: [facility] 12-31-2023 11:20-0400 Heart rate 75 /min Chair Francine Work Phone: [facility] 12-31-2023 11:20-0400 Respiratory rate 16 /min Chair Francine Work Phone: [facility] 12-31-2023 11:20-0400 SaO2% (BldA) [Mass fraction] 94 % Chair Francine Work Phone: [facility] 12-31-2023 11:20-0400 Systolic blood pressure 120 mm[Hg] Chair Francine Work Phone: [facility] 12-24-2023 10:01-0400 Body height 152.8 cm Mitch Neri MD Work Phone: [facility] 12-24-2023 10:01-0400 Body mass index (BMI) [Ratio] 51.01 kg/m2 Mitch Neir MD Work Phone: [facility] 12-24-2023 10:01-0400 Body temperature 97.11 [degF] Mitch Neri MD Work Phone: [facility] 12-24-2023 10:01-0400 Body weight 119.1 kg Mitch Neri MD Work Phone: [facility] 12-24-2023 10:01-0400 Diastolic blood pressure 60 mm[Hg] Mitch Neri MD Work Phone: [facility] 12-24-2023 10:01-0400 Heart rate 72 /min Micth Neri MD Work Phone: [facility] 12-24-2023 10:01-0400 Respiratory rate 16 /min Mitch Neri MD Work Phone: [facility] 12-24-2023 10:01-0400 SaO2% (BldA) [Mass fraction] 96 % Mitch Neri MD Work Phone: [facility] 12-24-2023 10:01-0400 Systolic blood pressure 129 mm[Hg] Mitch Neri MD Work Phone: [facility] 12-10-2023 09:51-0400 Body height 152.8 cm Brianna Renner APRN.[employer] Work Phone: [facility] 12-10-2023 09:51-0400 Body temperature 97.81 [degF] Brianna Renner APRN.[employer] Work Phone: [facility] 12-10-2023 09:51-0400 Body weight 118.1 kg Brianna Renner APRN.[employer] Work Phone: [facility] 12-10-2023 09:51-0400 Diastolic blood pressure 80 mm[Hg] Brianna Renner APRN.[employer] Work Phone: [facility] 12-10-2023 09:51-0400 Heart rate 97 /min Brianna Renner APRN.[employer] Work Phone: [facility] 12-10-2023 09:51-0400 Respiratory rate 18 /min Brianna Renner APRN.[employer] Work Phone: [facility] 12-10-2023 09:51-0400 SaO2% (BldA) [Mass fraction] 95 % Brianna Renner APRN.[employer] Work Phone: [facility] 12-10-2023 09:51-0400 Systolic blood pressure 133 mm[Hg] Brianna Renner APRN.[employer] Work Phone: [facility] 12-03-2023 10:35-0400 Body height 152.8 cm Cathy Yokasta PA-C Work Phone: [facility] 12-03-2023 10:35-0400 Body temperature 97.39 [degF] Ctahy Yokasta PA-C Work Phone: [facility] 12-03-2023 10:35-0400 Body weight 117.5 kg Cathy Yokasta PA-C Work Phone: [facility] 12-03-2023 10:35-0400 Diastolic blood pressure 67 mm[Hg] Cathy Yokasta PA-C Work Phone: [facility] 12-03-2023 10:35-0400 Heart rate 77 /min Cathy Leeer PA-C Work Phone: [facility] 12-03-2023 10:35-0400 Respiratory rate 16 /min Cathy Leeer PA-C Work Phone: [facility] 12-03-2023 10:35-0400 SaO2% (BldA) [Mass fraction] 95 % Cathy Leeer PA-C Work Phone: [facility] 12-03-2023 10:35-0400 Systolic blood pressure 137 mm[Hg] Cathy Leeer PA-C Work Phone: [facility] 11-27-2023 14:54-0400 Body height 157.5 cm Leo Rosalesjas SSIS DEVELOPER-[employer] Work Phone: [facility] 11-27-2023 14:54-0400 Body mass index (BMI) [Ratio] 48.05 kg/m2 Leo Rosalesjas SSIS DEVELOPER[employer] Work Phone: [facility] [employer] [facility] 11-27-2023 14:54-0400 Body temperature 99 [degF] Leo Gerard SSIS DEVELOPER[employer] Work Phone: [facility] 11-27-2023 14:54-0400 Body weight 119.2 kg Leo Gerard SSIS DEVELOPER[employer] Work Phone: [facility] 11-27-2023 14:54-0400 Diastolic blood pressure 78 mm[Hg] Leo Gerard SSIS DEVELOPER[employer] Work Phone: [facility] [employer] [facility] 11-27-2023 14:54-0400 Heart rate 75 /min Leo Gerard SSIS DEVELOPER[employer] Work Phone: [facility] 11-27-2023 14:54-0400 SaO2% (BldA) [Mass fraction] 96 % Leo Gerard SSIS DEVELOPER[employer] Work Phone: [facility] 11-27-2023 14:54-0400 Systolic blood pressure 138 mm[Hg] Leo Gerard SSIS DEVELOPER[employer] Work Phone: [facility] 11-26-2023 11:14-0400 Body height 153.8 cm Mitch Neri MD Work Phone: [facility] 11-26-2023 11:14-0400 Body temperature 98.01 [degF] Mitch Neri MD Work Phone: [facility] 11-26-2023 11:14-0400 Body weight 119.7 kg Mitch Neri MD Work Phone: [facility] 11-26-2023 11:14-0400 Diastolic blood pressure 60 mm[Hg] Mitch Neri MD Work Phone: [facility] 11-26-2023 11:14-0400 Heart rate 84 /min Mitch Neri MD Work Phone: [facility] 11-26-2023 11:14-0400 Respiratory rate 16 /min Mitch Neri MD Work Phone: [facility] 11-26-2023 11:14-0400 SaO2% (BldA) [Mass fraction] 98 % Mitch Neri MD Work Phone: [facility] 11-26-2023 11:14-0400 Systolic blood pressure 123 mm[Hg] Mitch Neri MD Work Phone: [facility] 11-14-2023 15:19-0400 Body height 157.5 cm Leo Gerard SSIS DEVELOPER[employer] Work Phone: [facility] 11-14-2023 15:19-0400 Body mass index (BMI) [Ratio] 49.01 kg/m2 Leo Gerard SSIS DEVELOPER[employer] Work Phone: [facility] 11-14-2023 15:19-0400 Body temperature 98.2 [degF] Leo Gerard SSIS DEVELOPER[employer] Work Phone: [facility] 11-14-2023 15:19-0400 Body weight 121.56 kg Leo Gerard SSIS DEVELOPER[employer] Work Phone: [facility] 11-14-2023 15:19-0400 Diastolic blood pressure 80 mm[Hg] Leo Gerard SSIS DEVELOPER-[employer] Work Phone: [facility] 11-14-2023 15:19-0400 Heart rate 82 /min Leo Gerard SSIS DEVELOPER[employer] Work Phone: [facility] 11-14-2023 15:19-0400 SaO2% (BldA) [Mass fraction] 93 % Leo Gerard SSIS DEVELOPER[employer] Work Phone: [facility] 11-14-2023 15:19-0400 Systolic blood pressure 140 mm[Hg] Leo Gerard SSIS DEVELOPER[employer] Work Phone: [facility] 11-05-2023 10:44-0400 SaO2% (BldA) [Mass fraction] 90 % Brianna Renner 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 Work Phone: [facility] 11-05-2023 10:42-0400 Diastolic blood pressure 77 mm[Hg] Chair Darrington Work Phone: [facility] 11-05-2023 10:42-0400 Systolic blood pressure 143 mm[Hg] Chair Francine Work Phone: [facility] 11-05-2023 09:44-0400 Body height 153.8 cm Brianna Renner 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 Work Phone: [facility] 11-05-2023 09:44-0400 Body temperature 97.3 [degF] Brianna Renner 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 Work Phone: [facility] 11-05-2023 09:44-0400 Body weight 123.8 kg Brianna Renner 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 Work Phone: [facility] 11-05-2023 09:44-0400 Diastolic blood pressure 78 mm[Hg] Brianna Renner 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 Work Phone: [facility] 11-05-2023 09:44-0400 Heart rate 84 /min Brianna Renner 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 Work Phone: [facility] 11-05-2023 09:44-0400 Respiratory rate 24 /min Brianna Renner 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 Work Phone: [facility] 11-05-2023 09:44-0400 Systolic blood pressure 168 mm[Hg] Brianna Renner 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 Work Phone: [facility] 10-23-2023 13:38-0500 Body temperature 97.9 [degF] [facility] [place] Work Phone: [facility] 10-23-2023 13:38-0500 Diastolic blood pressure 84 mm[Hg] [facility] [place] Work Phone: [facility] 10-23-2023 13:38-0500 Heart rate 71 /min [facility] [place] Work Phone: [facility] 10-23-2023 13:38-0500 Respiratory rate 18 /min [facility] [place] Work Phone: [facility] 10-23-2023 13:38-0500 SaO2% (BldA) [Mass fraction] 95 % [facility] [place] Work Phone: [facility] 10-23-2023 13:38-0500 Systolic blood pressure 211 mm[Hg] [facility] [place] Work Phone: [facility] 10-22-2023 09:09-0500 Body height 153.8 cm Mitch Neri MD Work Phone: [facility] 10-22-2023 09:09-0500 Body temperature 97.9 [degF] Mitch Neri MD Work Phone: [facility] 10-22-2023 09:09-0500 Body weight 121.7 kg Mitch Neri MD Work Phone: [facility] 10-22-2023 09:09-0500 Diastolic blood pressure 66 mm[Hg] Mitch Neri MD Work Phone: [facility] 10-22-2023 09:09-0500 Heart rate 72 /min Mitch Neri MD Work Phone: [facility] 10-22-2023 09:09-0500 Respiratory rate 16 /min Mitch Neri MD Work Phone: [facility] 10-22-2023 09:09-0500 SaO2% (BldA) [Mass fraction] 95 % Mitch Neri MD Work Phone: [facility] 10-22-2023 09:09-0500 Systolic blood pressure 185 mm[Hg] Mitch Neri MD Work Phone: [facility] 10-09-2023 10:28-0500 Body height 157.5 cm Leo Gerard SSIS DEVELOPER[employer] Work Phone: [facility] 10-09-2023 10:28-0500 Body mass index (BMI) [Ratio] 51.03 kg/m2 Leo Gerard SSIS DEVELOPER[employer] Work Phone: [facility] 10-09-2023 10:28-0500 Body temperature 98.4 [degF] Leo Gerard SSIS DEVELOPER-[employer] Work Phone: [facility] 10-09-2023 10:28-0500 Body weight 126.55 kg Leo Gerard SSIS DEVELOPER-[employer] Work Phone: [facility] 10-09-2023 10:28-0500 Diastolic blood pressure 78 mm[Hg] Leo Gerard SSIS DEVELOPER-[employer] Work Phone: [facility] 10-09-2023 10:28-0500 Heart rate 83 /min Leo Gerard SSIS DEVELOPER-[employer] Work Phone: [facility] 10-09-2023 10:28-0500 SaO2% (BldA) [Mass fraction] 98 % Leo Gerard SSIS DEVELOPER-[employer] Work Phone: [facility] 10-09-2023 10:28-0500 Systolic blood pressure 158 mm[Hg] Leo Gerard SSIS DEVELOPER-[employer] Work Phone: [facility] 09-26-2023 08:04-0500 Body height 157.5 cm Pacc 1 Work Phone: [facility] 09-26-2023 08:04-0500 Body temperature 98.4 [degF] Pacc 1 Work Phone: [facility] 09-26-2023 08:04-0500 Body weight 124.5 kg Pacc 1 Work Phone: [facility] 09-26-2023 08:04-0500 Diastolic blood pressure 56 mm[Hg] Pacc 1 Work Phone: [facility] 09-26-2023 08:04-0500 Heart rate 74 /min Pacc 1 Work Phone: [facility] 09-26-2023 08:04-0500 Respiratory rate 20 /min Pacc 1 Work Phone: [facility] 09-26-2023 08:04-0500 SaO2% (BldA) [Mass fraction] 94 % Pacc 1 Work Phone: [facility] 09-26-2023 08:04-0500 Systolic blood pressure 152 mm[Hg] Pacc 1 Work Phone: [facility] 08-06-2023 08:35-0500 Body temperature 96.8 [degF] Mendoza Yang MD Work Phone: [facility] 08-06-2023 08:35-0500 Body weight 123.78 kg Mendoza Yang MD Work Phone: [facility] 08-06-2023 08:35-0500 Diastolic blood pressure 63 mm[Hg] Mendoza Yang MD Work Phone: [facility] 08-06-2023 08:35-0500 Heart rate 65 /min Mendoza Yang MD Work Phone: [facility] 08-06-2023 08:35-0500 Respiratory rate 20 /min Mendoza Yang MD Work Phone: [facility] 08-06-2023 08:35-0500 SaO2% (BldA) [Mass fraction] 96 % Mendoza Yang MD Work Phone: [facility] 08-06-2023 08:35-0500 Systolic blood pressure 169 mm[Hg] Mendoza Yang MD Work Phone: [facility] 07-26-2023 11:55-0500 Body height 160 cm Pacc 4 Work Phone: [facility] 07-26-2023 11:55-0500 Body temperature 97.81 [degF] Pacc 4 Work Phone: [facility] 07-26-2023 11:55-0500 Body weight 126.8 kg Pacc 4 Work Phone: [facility] 07-26-2023 11:55-0500 Diastolic blood pressure 74 mm[Hg] Pacc 4 Work Phone: [facility] 07-26-2023 11:55-0500 Heart rate 69 /min Pacc 4 Work Phone: [facility] 07-26-2023 11:55-0500 Respiratory rate 17 /min Pacc 4 Work Phone: [facility] 07-26-2023 11:55-0500 SaO2% (BldA) [Mass fraction] 95 % Pacc 4 Work Phone: [facility] 07-26-2023 11:55-0500 Systolic blood pressure 174 mm[Hg] Pacc 4 Work Phone: [facility] 02-28-2023 12:30-0400 Diastolic blood pressure 80 mm[Hg] DO Janet Gilma Work Phone: [facility] 02-28-2023 12:30-0400 Heart rate 62 /min DO Janet Gilma Work Phone: [facility] 02-28-2023 12:30-0400 Respiratory rate 16 /min DO Janet Gilma Work Phone: [facility] 02-28-2023 12:30-0400 SaO2% (BldA) [Mass fraction] 100 % DO Janet Gilma Work Phone: [facility] 02-28-2023 12:30-0400 Systolic blood pressure 184 mm[Hg] DO Janet Gilma Work Phone: [facility] 02-28-2023 09:53-0400 Body height 157.48 cm DO Janet Gilma Work Phone: [facility] 02-28-2023 09:53-0400 Body weight 127 kg DO Janet Gilma Work Phone: [facility] 12-07-2022 17:10-0400 Body height 154.94 cm Debbie Ramirez Other [employer] Other 12-07-2022 17:10-0400 Body mass index (BMI) [Ratio] 52.22 kg/m2 Debbie Ramirez Other [employer] Other 12-07-2022 17:10-0400 Body temperature 100 [degF] Debbie Ramirez Other [employer] Other 12-07-2022 17:10-0400 Body weight 125.38 kg Debbie Ramirez Other [employer] Other 12-07-2022 17:10-0400 Diastolic blood pressure 93 mm[Hg] Debbie Ramirez Other [employer] Other 12-07-2022 17:10-0400 Respiratory rate 20 /min Debbie Ramirez Other [employer] Other 12-07-2022 17:10-0400 SaO2% (BldA) [Mass fraction] 95 % Debbie Ramirez Other [employer] Other 12-07-2022 17:10-0400 Systolic blood pressure 142 mm[Hg] Debbie Ramirez Other [employer] Other 12-03-2022 18:30-0400 Body height 154.94 cm Karen Parrish Other [employer] Other 12-03-2022 18:30-0400 Body mass index (BMI) [Ratio] 52.9 kg/m2 Karen Parrish Other [employer] Other 12-03-2022 18:30-0400 Body temperature 100 [degF] Karen Parrish Other [employer] Other 12-03-2022 18:30-0400 Body weight 127.01 kg Kaern Parrish Other [employer] Other 12-03-2022 18:30-0400 Diastolic blood pressure 97 mm[Hg] Karen Parrish Other [employer] Other 12-03-2022 18:30-0400 Respiratory rate 20 /min Karen Parrish Other [employer] Other 12-03-2022 18:30-0400 SaO2% (BldA) [Mass fraction] 93 % Karen Parrish Other [employer] Other 12-03-2022 18:30-0400 Systolic blood pressure 189 mm[Hg] Karen Parrish Other [employer] Other 06-17-2022 10:25-0400 Body height 154.94 cm Dayanna Endy Other [employer] Other 06-17-2022 10:25-0400 Body mass index (BMI) [Ratio] 52.9 kg/m2 Dayanna Endy Other [employer] Other 06-17-2022 10:25-0400 Body temperature 98.6 [degF] Dayanna Endy Other [employer] Other 06-17-2022 10:25-0400 Body weight 127.01 kg Dayanna Endy Other [employer] Other 06-17-2022 10:25-0400 Diastolic blood pressure 90 mm[Hg] Dayanna Endy Other [employer] Other 06-17-2022 10:25-0400 Respiratory rate 20 /min Dayanna Schumacher Other [employer] Other 06-17-2022 10:25-0400 SaO2% (BldA) [Mass fraction] 98 % Dayanna Schumacher Other [employer] Other 06-17-2022 10:25-0400 Systolic blood pressure 190 mm[Hg] Dayanna Endy Other [employer] Other 04-03-2022 13:17-0400 Body height 157.5 cm Shailehs Izquierdo MD Work Phone: [facility] 04-03-2022 13:17-0400 Body weight 127.01 kg Shailesh Izquierdo MD Work Phone: [facility] 03-19-2022 15:23-0400 Body weight 125.83 kg Alberto Monsalve DO Work Phone: [facility] 03-19-2022 15:23-0400 Diastolic blood pressure 81 mm[Hg] Alberto Mendis DO Work Phone: [facility] 03-19-2022 15:23-0400 Heart rate 104 /min Alberto Cruzis DO Work Phone: [facility] 03-19-2022 15:23-0400 Systolic blood pressure 174 mm[Hg] Alberto Mendis DO Work Phone: [facility] 12-08-2021 08:25-0400 Body height 157.5 cm John Dc MD Work Phone: [facility] 12-08-2021 08:25-0400 Body weight 124.74 kg John Dc MD Work Phone: [facility] 12-08-2021 08:25-0400 Diastolic blood pressure 79 mm[Hg] John Dc MD Work Phone: [facility] 12-08-2021 08:25-0400 Heart rate 73 /min John Dc MD Work Phone: [facility] 12-08-2021 08:25-0400 Systolic blood pressure 128 mm[Hg] John Dc MD Work Phone: [facility] Encounters Encounter Date Encounter Type Care Provider Facility Start: 04-16-2025 End: 04-16-2025 Patient encounter procedure Pulm Lab Sameera Work Phone: Pulmonary Lab Comment on above: Dyspnea and respirat ory abnormalities (Primary Dx); Hiatal hernia; Other idiopathic scoliosis, unspecified spinal region; Class 3 severe obesity with body mass index (BMI) of 45.0 to 49.9 in adult, unspecified obesity type, unspecified whether serious comorbidity present (HCC) Start: 04-16-2025 End: 04-16-2025 ambulatory [facility] Pulmonary Lab Comment on above: Spirometry Start: 04-13-2025 End: 04-13-2025 Patient encounter procedure Mitch Neri MD Work Phone: Hematology Comment on above: Invasive lobular car cinoma of breast in female (HCC) (Primary Dx); Bilateral leg edema; Osteopenia of multiple sites Start: 04-13-2025 End: 04-13-2025 ambulatory SUNNY Saunders GREGORY Facility:[facility] Start: 04-12-2025 End: 04-12-2025 Specialty Pharmacy Muna Fox [facility] Comment on above: SPP Oral Oncology/he matology - Medication Refill (Kisqali) Sinusitis Acute recurrent pans inusitis Start: 04-09-2025 End: 04-10-2025 Refill Mitch Neri MD Work Phone: Hematology Comment on above: Refill Request Start: 04-05-2025 End: 04-05-2025 Office outpatient visit 15 minutes Rakesh Lamb DO Work Phone: [facility] Comment on above: Acute recurrent pans inusitis (Primary Dx); Vaginal candidiasis; Yeast dermatitis Start: 04-05-2025 End: 04-05-2025 ambulatory Chair Renae Escamilla Work Phone: Hematology/Oncology Comment on above: Invasive lobular car cinoma of breast in female (HCC) (Primary Dx) Start: 04-01-2025 ambulatory MINAL KHANNA Facility: [facility] Start: 03-30-2025 End: 03-30-2025 ambulatory Lab/[facility] Francine Work Phone: Hematology/Oncology Comment on above: Invasive lobular car cinoma of breast in female (HCC) Encounter for screen ing mammogram for malignant neoplasm of breast Start: 03-26-2025 End: 03-26-2025 Telephone encounter Mitch Neri MD Work Phone: Hematology Comment on above: permision for fittin g/DME Start: 03-19-2025 End: 03-19-2025 Preprocedural examination done [facility] Work Phone: Start: 03-19-2025 Encounter for other preprocedural examination RAKESH PALMA [facility] Start: 03-19-2025 End: 03-19-2025 [facility] Pre Anesthesia Comment on above: Pre-op evaluation (P rimary Dx); Primary hypertension; Chronic obstructive pulmonary disease, unspecified COPD type (HCC); Gastroesophageal reflux disease, unspecified whether esophagitis present; Stage 3a chronic kidney disease (HCC); Rheumatoid arthritis, involving unspecified site, unspecified whether rheumatoid factor present (HCC); Pulmonary embolism, other, unspecified chronicity, unspecified whether acute cor pulmonale present (HCC); Palpitations; Morbid obesity (HCC); Mixed hyperlipidemia; Disorder of mitral valve Start: 03-15-2025 End: 03-15-2025 Specialty Pharmacy Muna Fox [facility] Comment on above: SPP Oral Oncology/he matology - Medication Refill (Kisqali ) Start: 03-05-2025 End: 03-05-2025 Patient encounter procedure Andres Mann MD Work Phone: Plastic Surgery Comment on above: Inclusion cyst (Prim parker Dx) Start: 03-05-2025 End: 03-05-2025 ambulatory [facility] Facility:[facility] Start: 03-05-2025 End: 03-05-2025 ambulatory LEO GERARD Not Available Start: 03-04-2025 End: 03-04-2025 Telephone encounter Andres Mann MD Work Phone: Plastic Surgery Comment on above: Reschedule Post-op Start: 02-23-2025 ambulatory [facility] Facility :[facility] Start: 02-23-2025 End: 02-23-2025 Subsequent hospital visit by physician Andres Mann MD Work Phone: [facility] Surgery Comment on above: Inclusion cyst [L72. 0] Start: 02-19-2025 End: 02-19-2025 Patient encounter procedure Minal Khanna DO Work Phone: Kidney Medicine Comment on above: Stage 3 chronic kidn ey disease, unspecified whether stage 3a or 3b CKD (HCC) (Primary Dx); Primary hypertension; Invasive lobular carcinoma of breast in female (HCC); Abnormal finding of blood chemistry, unspecified Start: 02-19-2025 End: 02-19-2025 ambulatory SUNNY JENKINS Facility:[facility] Start: 02-17-2025 End: 02-17-2025 Telephone encounter Gómez Baker MD Work Phone: General Surgery Comment on above: Orders; Care Coordin ator - Other Start: 02-16-2025 End: 02-17-2025 Orders Only Leo Gerard APRN-[employer] Work Phone: [facility] Comment on above: Encounter for screen ing mammogram for malignant neoplasm of breast (Primary Dx) Start: 02-15-2025 End: 02-15-2025 Patient encounter procedure Gómez Baker MD Work Phone: General Surgery Comment on above: Difficulty breathing (Primary Dx); Hiatal hernia; Class 3 severe obesity due to excess calories with body mass index (BMI) of 50.0 to 59.9 in adult, unspecified whether serious comorbidity present (HCC); Gastroesophageal reflux disease without esophagitis Start: 02-15-2025 End: 02-15-2025 Subsequent hospital visit by physician Evelin Womack [facility] Rej Work Phone: Radiology Comment on above: Pain in left hip [M2 5.552] Start: 02-15-2025 End: 02-15-2025 Patient encounter procedure Andres Mann MD Work Phone: Plastic Surgery Comment on above: Painful scar (Primar y Dx); Excess skin; Inclusion cyst Inclusion cyst (Prim parker Dx) 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 (Primary Dx); Pain in left hip SPP Oral Oncology/he matology - Medication Refill (Kisqali ) Start: 02-15-2025 End: 02-15-2025 ambulatory Muna Fox [facility] Start: 01-20-2025 End: 01-20-2025 Refill Sunny Jenkins MD Work Phone: [facility] Comment on above: Edema, unspecified t ype Start: 01-19-2025 End: 01-19-2025 Specialty Pharmacy [facility] Comment on above: SPP Oral Oncology/he matology - Medication Refill (Kisqali ) Start: 12-30-2024 End: 12-30-2024 ambulatory Treatment 5 Adolfo Rej Work Phone: Hematology Start: 12-30-2024 End: 12-30-2024 Patient encounter procedure Mitch Neri MD Work Phone: Hematology Comment on above: Invasive lobular car cinoma of breast in female (HCC) (Primary Dx); Hiatal hernia Invasive lobular car cinoma of breast in female (HCC) (Primary Dx) Start: 12-30-2024 End: 12-30-2024 ambulatory SUNNY JENKINS Facility:[facility] Start: 12-24-2024 End: 12-24-2024 Nursing evaluation of patient and report Ma Nurse Adolfo Sand Work Phone: Hematology/Oncology Comment on above: Invasive lobular car cinoma of breast in female (HCC) Start: 12-24-2024 End: 12-24-2024 ambulatory Lab/[facility] Francine Work Phone: Hematology/Oncology Comment on above: Invasive lobular car cinoma of breast in female (HCC) Start: 12-22-2024 End: 12-22-2024 Telephone encounter Marlee Myers RN Hematology Comment on above: Orders; Scheduling Start: 12-21-2024 End: 12-21-2024 Specialty Pharmacy [facility] Comment on above: SPP Oral Oncology/he matology - Medication Refill (Kisqali) Start: 11-23-2024 End: 11-24-2024 Specialty Pharmacy [facility] Comment on above: SPP Oral Oncology/he matology - Medication Refill (Kisqali 400 mg) EKG or bloodwork? Start: 10-26-2024 End: 10-26-2024 Specialty Pharmacy Muna Fox [facility] Comment on above: SPP Oral Oncology/he matology - Medication Refill (Kisqali) Start: 10-20-2024 End: 10-20-2024 Refill Sunny Jenkins MD Work Phone: [facility] Comment on above: Edema, unspecified t ype Start: 10-19-2024 Non-patient / Non-visit Ayaz Jenkins MD [facility] Phone[facility] Work Phone: Start: 10-16-2024 End: 10-16-2024 Telephone encounter Nia Snider RN Hematology Comment on above: Forms Start: 10-15-2024 End: 10-15-2024 ambulatory SUNNY JENKINS Facility:[facility] Start: 10-15-2024 End: 10-15-2024 Office outpatient new 30 minutes Sierra Atkins MD Work Phone: General Surgery Comment on above: H/O left mastectomy (Primary Dx) Start: 10-14-2024 End: 10-14-2024 Refill Christine Conner APRN-[employer] Work Phone: [facility] Comment on above: Hip pain, unspecifie d laterality Start: 10-13-2024 End: 10-13-2024 Telephone encounter Mitch Neri MD Work Phone: Hematology Comment on above: Orders Start: 10-13-2024 End: 10-13-2024 ambulatory Sunny Jenkins MD Work Phone: [facility] Work Phone: Start: 10-13-2024 End: 10-13-2024 Discharged Recurring Sunny Jenkins MD Work Phone: [facility] Start: 10-02-2024 End: 10-02-2024 Patient encounter procedure Mitch Neri MD Work Phone: Hematology Comment on above: Invasive lobular car cinoma of breast in female (HCC) (Primary Dx); Elevated serum creatinine; Lymphedema; Inconclusive mammogram; Encounter for screening mammogram for malignant neoplasm of breast Start: 10-02-2024 End: 11-23-2024 ambulatory SUNNY JENKINS Facility:[facility] Start: 09-30-2024 End: 09-30-2024 Patient encounter procedure Sunny Jenkins MD Work Phone: [facility] Work Phone: Start: 09-30-2024 End: 09-30-2024 ambulatory Sunny Jenkins MD Work Phone: [facility] Work Phone: Start: 09-29-2024 End: 09-29-2024 ambulatory MITCH NERI Facility:[facility] Start: 09-29-2024 End: 09-29-2024 Nursing evaluation of patient and report Ma Nurse Adolfo Solano Work Phone: Hematology/Oncology Comment on above: Invasive lobular car cinoma of breast in female (HCC) Start: 09-29-2024 Registered Recurring Sunny cardona MD Work Phone: [facility] Start: 09-21-2024 End: 09-21-2024 Specialty Pharmacy Suzanne [facility] Comment on above: SPP Oral Oncology/he matology - Medication Refill (Kisqali 400mg) Start: 09-17-2024 End: 09-18-2024 ambulatory Mitch Neri MD Work Phone: Hematology Start: 09-17-2024 End: 09-18-2024 Patient encounter procedure Mitch Neri MD Work Phone: Hematology Comment on above: anastrozole Start: 09-14-2024 End: 09-21-2024 Telephone encounter Torri Ibarra RN Hematology Comment on above: [employer] - O ther (Follow up oral chemo kisquali) Patient Update Start: 09-13-2024 End: 09-13-2024 Refill Sunny Jenkins MD Work Phone: [facility] Comment on above: Edema, unspecified t ype Start: 09-11-2024 End: 09-11-2024 ambulatory Lab/[facility] Francine Work Phone: Hematology/Oncology Comment on above: Invasive lobular car cinoma of breast in female (HCC) Start: 09-02-2024 End: 09-02-2024 Telephone encounter Nia Snider RN Hematology Comment on above: Results, Lab Start: 09-01-2024 End: 09-01-2024 Patient encounter procedure Nia Snider RN Hematology Comment on above: Oral Anti-cancer Age nt Education (Kisqali) Start: 09-01-2024 End: 09-01-2024 ambulatory Nia Snider RN Hematology Start: 08-12-2024 End: 08-12-2024 Patient encounter procedure Sandy Mcgregor MD, PhD Work Phone: Endocrinology Comment on above: Multiple thyroid nod ules (Primary Dx) Start: 08-12-2024 ambulatory SUNNY JENKINS Facility :[facility] Start: 07-28-2024 End: 07-29-2024 ambulatory Mitch Neri MD Work Phone: Hematology Start: 07-28-2024 End: 07-29-2024 Patient encounter procedure Mitch Neri MD Work Phone: Hematology Comment on above: Kisqali prescription Start: 07-26-2024 Non-patient / Non-visit Ayaz Jenkins MD Work Phone: [facility] Work Phone: Start: 07-25-2024 End: 07-26-2024 Refill Sunny Jenkins MD Work Phone: [facility] Comment on above: ASCVD (arteriosclero tic cardiovascular disease); Edema, unspecified type Start: 07-22-2024 End: 07-22-2024 Refill Sunny Jenkins MD Work Phone: [facility] Comment on above: Hypertension, unspec ified type Start: 07-20-2024 End: 07-30-2024 Telephone encounter Sandy Mcgregor MD, PhD Work Phone: Endocrinology Comment on above: Results Start: 07-18-2024 End: 07-20-2024 Refill Mitch Neri MD Work Phone: Hematology Comment on above: Refill Request Start: 07-17-2024 End: 07-17-2024 ambulatory MITCH NERI Facility:[facility] Start: 07-17-2024 Encounter for other preprocedural examination RAKESH PALMA [facility] Start: 07-17-2024 End: 07-17-2024 Nursing evaluation of patient and report Georgina Solano Work Phone: Hematology/Oncology Comment on above: Pre-op testing Start: 07-17-2024 End: 07-17-2024 Patient encounter status Georgina Solano Work Phone: [facility] Start: 07-16-2024 End: 09-08-2024 ambulatory Muna Fox [facility] Start: 07-16-2024 End: 07-16-2024 Patient encounter procedure Mitch Neri MD Work Phone: Hematology Comment on above: Invasive lobular car cinoma of breast in female (HCC) (Primary Dx) SPP Oral Oncology/he matology - Treatment Referral (Kisqali 400 mg); Insurance Authorization ([place] pending) Start: 07-15-2024 End: 07-15-2024 ambulatory SUNNY Saunders GREGORY Facility:[facility] Start: 07-15-2024 End: 07-15-2024 Patient encounter procedure [...] 07-16-2024 Refill Sunny Jenkins MD Work Phone: [facility] Comment on above: Hip pain, unspecifie d laterality Start: 07-06-2024 End: 07-07-2024 Patient encounter procedure Mitch Neri MD Work Phone: Hematology Comment on above: Bloodwork results Start: 07-06-2024 End: 07-07-2024 ambulatory Lab/Port Ad[facility]fo Francine Work Phone: Hematology/Oncology Comment on above: Invasive lobular car cinoma of breast in female (HCC) Start: 06-30-2024 End: 07-01-2024 ambulatory Sandy Mcgregor MD, PhD Work Phone: Endocrinology Comment on above: Thyroid ultrasound Start: 06-23-2024 End: 06-23-2024 Telephone encounter Marlee Myers RN Hematology Comment on above: Results; Orders Start: 06-23-2024 End: 06-23-2024 ambulatory RAKESH PALMA Facility:[facility] Start: 06-23-2024 End: 06-23-2024 Patient encounter procedure Rakesh Palma OD Work Phone: Ophthalmology Comment on above: Status post cataract surgery, right (Primary Dx); Status post cataract surgery, left Start: 06-21-2024 End: 06-21-2024 Refill Sunny Jenkins MD Work Phone: [facility] Comment on above: Edema, unspecified t ype Start: 06-18-2024 End: 06-18-2024 Subsequent hospital visit by physician [facility] Comment on above: Multiple thyroid nod ules [E04.2] Start: 06-18-2024 End: 06-18-2024 ambulatory Poonam Oglesby RT(R) Radiology Comment on above: Radiology US Start: 06-18-2024 End: 06-18-2024 Patient encounter procedure Rakesh Palma OD Work Phone: Ophthalmology Comment on above: Status post cataract surgery, right (Primary Dx); Status post cataract surgery, left Start: 06-17-2024 End: 06-17-2024 ambulatory JOHANNE LIA Facility:[facility] Start: 06-10-2024 End: 06-14-2024 Telephone encounter Merary Resendiz CNA [facility] Comment on above: Referral Start: 06-10-2024 End: 06-10-2024 Patient encounter procedure Sunny Jenkins MD Work Phone: [facility] Comment on above: Medicare annual well ness visit, subsequent (Primary Dx); Seropositive rheumatoid arthritis ([facility]); Hip pain, unspecified laterality; Polyarthralgia Start: 06-10-2024 End: 06-10-2024 ambulatory [facility] Start: 06-10-2024 Encounter for genera l adult medical examination without abnormal findings [facility] Start: 06-09-2024 End: 06-09-2024 ambulatory [facility] Lucas GREGORY Facility:[facility] Start: 06-09-2024 End: 06-09-2024 Patient encounter procedure [...] (Primary Dx) Start: 06-03-2024 End: 06-03-2024 ambulatory MITCH NERI Facility:[facility] Start: 06-03-2024 End: 06-03-2024 ambulatory SUNNY JENKINS Facility:[facility] Start: 06-03-2024 End: 06-03-2024 Patient encounter procedure Johanne Fitzgerald MD Work Phone: Ophthalmology Comment on above: Follow-up examinatio n following surgery (Primary Dx) Start: 06-02-2024 End: 06-02-2024 ambulatory [facility] Facility:[facility] Start: 06-01-2024 End: 06-01-2024 ambulatory Lab/Port Adolfo Escamilla Work Phone: Hematology/Oncology Comment on above: Invasive lobular car cinoma of breast in female (HCC) (Primary Dx); Multiple thyroid nodules Hypertension, unspec ified type Start: 05-27-2024 End: 05-27-2024 ambulatory [facility] Facility:[facility] Start: 05-26-2024 ambulatory [facility] Start: 05-19-2024 End: 05-19-2024 PAT [facility] Cast[facility] 1 Work Phone: Pre Anesthesia Comment on [...] Start: 05-19-2024 End: 05-19-2024 Preprocedural examination done Pac Castile 1 Work Phone: [facility] Work Phone: Start: 05-15-2024 End: 05-15-2024 ambulatory Chemo Ed c Rej Hematology Start: 05-15-2024 End: 05-15-2024 Patient [...] prescriptio n Start: 04-22-2024 End: 04-22-2024 ambulatory Munayakelin Fox [facility] Start: 04-22-2024 End: 04-22-2024 Patient encounter procedure Muna Fox [facility] Comment on above: SPP Oral [...] 50.0-59.9, adult (HCC) Start: 04-13-2024 End: 04-13-2024 Office outpatient visit 25 minutes Sunny Jenkins MD Work Phone: [facility] Comment on above: Seropositive rheumat oid arthritis ([facility]) (Primary Dx); Other acute pulmonary embolism without acute cor pulmonale ([facility]); Edema, unspecified type; Hypertension, unspecified type; Severe obesity (BMI >= 40) ([facility]); Cancer of overlapping sites of left breast ([facility]); Lower leg edema; Hip pain, unspecified laterality Start: 04-13-2024 End: 04-13-2024 [facility] Start: 03-24-2024 Patient encounter procedure Josef Austin MD Work Phone: Radiation Oncology Start: 03-24-2024 Radiation Oncology Note Josef velazco MD Work Phone: Radiation Oncology Comment on above: Completion Note Start: 03-23-2024 End: 03-23-2024 Patient encounter procedure Johanne Fitzgerald MD Work Phone: Ophthalmology Comment on above: Combined forms of ag e-related cataract of both eyes (Primary Dx) Start: 03-19-2024 End: 03-19-2024 Patient encounter procedure Josef Austin MD Work Phone: Radiation Oncology Comment on above: Invasive lobular car cinoma of breast in female (HCC) (Primary Dx) Start: 03-11-2024 End: 03-11-2024 Patient encounter procedure Josef Austin MD Work Phone: Radiation Oncology Comment on above: Invasive lobular car cinoma of breast in female (HCC) (Primary Dx) Start: 03-04-2024 Telephone encounter Yvonne Baumann RN Work Phone: Hematology/Oncology Comment on above: Care Coordination (T ransition of care) Start: 03-03-2024 End: 03-03-2024 Patient encounter procedure [...] encounter [facility] beebe MD [facility] Comment on above: Appointment Start: 02-13-2024 Telephone encounter Josef Austin MD Work Phone: Radiation Oncology Start: 02-12-2024 End: 02-12-2024 ambulatory [facility] Start: 02-11-2024 End: 03-26-2024 ambulatory OLLIE Ferrara [facility] Start: 02-07-2024 ambulatory Windy Jiang [facility] Radia tion Oncology Comment on above: Patient Education Start: [...] Work Phone: Radiology Pet CT Start: 02-06-2024 End: 02-06-2024 Documentation procedure Bhavya Arenas RN [facility] - Radiation Oncology Start: 02-06-2024 Telephone encounter Yvonne Baumann RN Work Phone: Hematology/Oncology Comment on above: Care Coordination (Surinder franklin in treatment plan) Start: 01-29-2024 ambulatory Mitch Neri MD Work Phone: Hematology/Oncology Comment on above: Question on my radia tion schedule Start: 01-28-2024 End: 01-28-2024 ambulatory [facility] Start: 01-28-2024 End: 01-28-2024 Documentation procedure Bhavya Arenas RN [facility] - Radiation Oncology Start: 01-28-2024 End: 01-28-2024 ambulatory SUNNY JENKINS [facility] Start: 01-28-2024 End: 01-28-2024 Office outpatient visit 25 minutes Sunny Jenkins MD Work Phone: [facility] Comment on above: Multiple subsegmenta l pulmonary emboli without acute cor pulmonale (Primary Dx); Seropositive rheumatoid arthritis ([facility]); Severe obesity (BMI >= 40) ([facility]); 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 ([facility]); Hypertension, unspecified type; Other acute pulmonary embolism without acute cor pulmonale ([facility]) Start: 01-22-2024 Telephone encounter Yvonne Baumann RN Work Phone: Hematology/Oncology Comment on above: Care Coordination (L ab results) Start: 01-21-2024 End: 01-21-2024 Patient encounter procedure Mitch Neri MD Work Phone: Hematology/Oncology Start: 01-21-2024 End: 01-21-2024 ambulatory [facility] Work Phone: Hematology/Oncology Comment on above: Mass of right breast , unspecified quadrant; Invasive lobular carcinoma of breast in female (HCC); Other abnormal and inconclusive findings on diagnostic imaging of breast; Elevated transaminase level Invasive lobular car cinoma of breast in female (HCC) (Primary Dx) Couple of questions Start: 01-21-2024 Telephone encounter Mitch beebe MD Work Phone: Cancer [facility] Comment on above: Referral Information (Radiation) Start: 01-17-2024 End: 01-17-2024 [facility] Start: 01-15-2024 Telephone encounter Yvonne Baumann RN Work Phone: Hematology/Oncology Comment on above: Care Coordination (G eneral surgery consult) Start: 01-14-2024 End: 01-14-2024 Office outpatient visit 25 minutes Cathy Templeton PA-C Work Phone: Hematology/Oncology Comment on above: Invasive lobular car cinoma of breast in female (HCC) (Primary Dx); Mass of right breast, unspecified quadrant; Other abnormal and inconclusive findings on diagnostic imaging of breast; Jessica infection; Diverticulitis; Cutaneous abscess of groin Start: 01-14-2024 End: 01-14-2024 ambulatory [facility] Work Phone: Hematology/Oncology Comment on above: Invasive lobular car cinoma of breast in female (HCC) (Primary Dx); Cutaneous abscess of groin Start: 01-07-2024 Telephone encounter Mitch beebe MD Work Phone: Cancer [facility] Comment on above: Referral Information Start: 01-07-2024 End: 01-07-2024 Patient encounter procedure Mitch Neri MD Work Phone: Hematology/Oncology Start: 01-07-2024 End: 01-07-2024 ambulatory [facility] [place] Work Phone: Hematology/Oncology Comment on above: Invasive lobular car cinoma of breast in female (HCC) Invasive lobular car cinoma of breast in female (HCC) (Primary Dx); Cutaneous abscess of groin Start: 01-06-2024 End: 01-06-2024 ambulatory [facility] Work Phone: Start: 01-06-2024 End: 01-06-2024 Patient encounter procedure [facility] Work Phone: Start: 12-31-2023 Chart abstracting Mary awan RN Work Phone: Hematology/Oncology Comment on above: Research (IRB [phone] [id number] Informed Consent) Start: 12-31-2023 End: 12-31-2023 Refill Celia Lewis MD Work Phone: [facility] Start: 12-31-2023 End: 12-31-2023 ambulatory Chair Rashid Escamilla Work Phone: Hematology/Oncology Comment on above: Invasive lobular car cinoma of breast in female (HCC) (Primary Dx) Start: 12-24-2023 End: 12-24-2023 ambulatory Halina Carbajal LENA.VARNISH REMOVER Work Phone: [facility] Comment on above: Invasive lobular car cinoma of breast in female (HCC) (Primary Dx); S/P mastectomy, left Start: 12-24-2023 End: 12-24-2023 Telemedicine consultation with patient Halina Carbajal 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 Work Phone: Breast Center Start: 12-24-2023 End: 12-24-2023 Patient encounter procedure Mitch Neri MD Work Phone: Hematology/Oncology Start: 12-24-2023 End: 12-24-2023 ambulatory [facility] Work Phone: Hematology/Oncology Comment on above: Invasive lobular car cinoma of breast in female (HCC); Jessica infection Invasive lobular car cinoma of breast in female (HCC) (Primary Dx); Stage 3a chronic kidney disease (HCC) Start: 12-21-2023 End: 12-21-2023 Orders Only Leo Gerard SSIS DEVELOPER-[employer]ARNISH REMOVER Work Phone: [facility] Start: 12-13-2023 End: 12-13-2023 Orders Only Sunny Jenkins MD Work Phone: [facility] Comment on above: Edema, unspecified t ype (Primary Dx) Multiple subsegmenta l pulmonary emboli without acute cor pulmonale ([facility]) Start: 12-11-2023 End: 12-11-2023 Orders Only Leo Gerard SSIS DEVELOPER-[employer]ARNISH REMOVER Work Phone: [facility] Start: 12-10-2023 End: 12-10-2023 Telephone encounter Kalyani Rachel CMA [facility] Start: 12-10-2023 End: 12-10-2023 Patient encounter procedure Brianna Renner APRN.VARNISH REMOVER Work Phone: [facility] Start: 12-10-2023 End: 12-10-2023 ambulatory [facility] Work Phone: Hematology/Oncology Comment on above: Invasive lobular car cinoma of breast in female (HCC) Invasive lobular car cinoma of breast in female (HCC) (Primary Dx); Jessica infection Jessica infection (P rimary Dx) Start: 12-09-2023 Telephone encounter Yvonne Baumann RN Work Phone: Hematology/Oncology Comment on above: Care Coordination (C 1D1 treatment follow up call) Care Coordination (C linical update) Start: 12-03-2023 End: 12-03-2023 ambulatory Chair 13 Francine Work Phone: Hematology/Oncology Comment on above: [...] Start: 12-03-2023 End: 12-03-2023 ambulatory [facility] Work Phone: Hematology/Oncology Comment on above: Invasive lobular car cinoma of breast in female (HCC) Start: 11-27-2023 End: 11-27-2023 Office outpatient visit 10 minutes Leo HESTER Work Phone: [facility] Comment on above: Intertrigo (Primary Dx); Jessica infection Start: 11-26-2023 End: 11-26-2023 Nutrition therapy Nona Lomax RD Work Phone: Nutrition Therapy Comment on above: Nutrition Assessment Start: 11-26-2023 End: 11-26-2023 Patient encounter procedure Mitch Neri MD Work Phone: [facility] Start: 11-26-2023 End: 11-26-2023 ambulatory [facility] Work Phone: Hematology/Oncology Comment on above: Chest pain, unspecif ied type; Invasive lobular carcinoma of breast in female (HCC); Generalized edema Invasive lobular car cinoma of breast in female (HCC) (Primary Dx) Start: 11-19-2023 Telephone encounter Merary Resendiz [facility] Comment on above: HomeHealth Start: 11-14-2023 End: 11-14-2023 Transitional care manage srvc 7 day discharge Leo Gerard APRN-[employer]ARNISH REMOVER Work [facility] Comment on above: Multiple subsegmenta l pulmonary emboli without acute cor pulmonale (CMS-HCC) (Primary Dx); Diuresis; Hospital discharge follow-up; Diastolic dysfunction with acute on chronic heart failure (CMS-HCC); Primary hypertension; Primary invasive malignant neoplasm of female breast, left (CMS-HCC) Start: 11-11-2023 Telephone encounter Yvonne Baumann RN Work Phone: Hematology/Oncology Comment on above: Care Coordination (H ospital d/c follow up call) Care Coordination (M edication update) Start: 11-06-2023 Telephone encounter Yvonne Baumann RN Work Phone: Hematology/Oncology Comment on above: Care Coordination (H ospital update) Start: 11-05-2023 End: 11-05-2023 ambulatory BRIANNA RENNER [facility] Start: 11-05-2023 Telephone encounter Yvonne Baumann RN Work Phone: Hematology/Oncology Comment on above: Care Coordination (P E) Multiple subsegmenta l pulmonary emboli without acute cor pulmonale (CMS-HCC) (Primary Dx) Start: 11-05-2023 End: 11-05-2023 Patient encounter procedure Brianna Renner APRN.VARNISH REMOVER Work Phone: [facility] Start: 11-05-2023 End: 11-05-2023 [...] Post-operative state Start: 10-23-2023 End: 10-23-2023 ambulatory [facility] Work Phone: Hematology/Oncology Comment on above: Invasive lobular car cinoma of breast in female (HCC) (Primary Dx) Start: 10-22-2023 End: 10-22-2023 Nutrition therapy Nona Lomax RD Work Phone: Nutrition Therapy Comment on above: Nutrition Assessment Start: 10-22-2023 Telephone encounter Mitch beebe MD Work Phone: Hematology/Oncology Comment on above: Disability Madi Start: 10-22-2023 End: 10-22-2023 Patient encounter procedure Mitch Neri MD Work Phone: [facility] Start: 10-22-2023 End: 10-22-2023 ambulatory [facility] Work Phone: Hematology/Oncology Comment on above: Invasive [...] Office outpatient visit 10 minutes Leo Gerard APRN-VARNISH REMOVER Work Phone: [facility] Comment on above: Right non-suppurativ e otitis media (Primary Dx); Acute recurrent sinusitis, unspecified location; Acute rhinitis Start: 10-07-2023 Telephone encounter Cassia Roberts mike Comment on above: Patient Question Start: 09-27-2023 Telephone encounter Yvonne Baumann RN Work Phone: Hematology/Oncology Comment on above: Care Coordination (a ppointments) Start: 09-26-2023 End: 09-26-2023 [facility] 1 Work Phone: Pre Anesthesia Comment on above: Preoperative clearan ce (Primary Dx); Mixed hyperlipidemia; Primary hypertension; Palpitations; PETERSON (dyspnea on exertion); Disorder of mitral valve; Morbid obesity (HCC); Edema, unspecified type; Idiopathic scoliosis and kyphoscoliosis; Rheumatoid arthritis, involving unspecified site, unspecified whether rheumatoid factor present (HCC) Start: 09-26-2023 End: 09-26-2023 Preoperative state Pac 1 Work Phone: [facility] Work Phone: Start: 09-25-2023 Telephone encounter Citlali Sanchez CMA [facility] Start: 09-24-2023 End: 10-25-2023 ambulatory [facility] Start: 09-20-2023 End: 09-21-2023 ambulatory [facility] Facility:[facility] Start: 09-18-2023 End: 09-18-2023 ambulatory [facility] Start: 08-23-2023 Telephone encounter Kalayni Cadena MA [facility] Start: 08-06-2023 End: 08-06-2023 Patient encounter procedure Halina Carbajal [employer]ARNISH REMOVER Work Phone: [facility] Comment on above: Invasive lobular car cinoma of left breast in female (HCC) (Primary Dx); S/P left mastectomy Start: 08-06-2023 End: 08-06-2023 ambulatory Mendoza Yang MD Work Phone: Hematology/Oncology Comment on above: Invasive lobular car cinoma of breast in female (HCC) (Primary Dx) Start: 08-06-2023 End: 08-06-2023 Patient encounter procedure Mendoza Yang MD Work Phone: [facility] Start: 07-29-2023 End: 07-29-2023 Patient encounter status Rita Amanda Work Phone: [facility] Start: 07-29-2023 End: 07-29-2023 Subsequent hospital visit by physician [facility] Work Phone: Molecular Imaging Comment on above: Invasive lobular car cinoma of breast in female (HCC) [C50.919] Start: 07-26-2023 End: 07-26-2023 [facility] 4 Work Phone: Pre Anesthesia Comment on above: Preop examination (P rimary Dx); Mixed hyperlipidemia; Primary hypertension; Palpitations; PETERSON (dyspnea on exertion); Gastroesophageal reflux disease, unspecified whether esophagitis present; Disorder of mitral valve; Morbid obesity ([facility]); Edema, unspecified type; Idiopathic scoliosis and kyphoscoliosis; Rheumatoid arthritis, involving unspecified site, unspecified whether rheumatoid factor present ([facility]) Start: 07-26-2023 End: 07-26-2023 Preprocedural examination done [facility] 4 Work Phone: [facility] Work Phone: Start: 07-24-2023 Telephone encounter Leatha tillman RN Work Phone: [facility] Comment on above: 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 Crop Duster - O ther (methotrexate) Start: 07-23-2023 End: 07-23-2023 Patient encounter procedure Nishant Sawyer MD Work Phone: Radiation Oncology Comment on [...] (Primary Dx) Start: 07-12-2023 Telephone encounter Milton Tim RN Breast Center Start: 02-28-2023 End: 02-28-2023 Admission to same day surgery center DO Janet Dillard Work Phone: [facility] [place] Work Phone: Start: 02-28-2023 End: 02-28-2023 ambulatory DO Janet Dillard Work Phone: [facility] Work Phone: Start: 02-08-2023 ambulatory Micah Avis Son DO Work Phone: Orthopaedics Start: 02-08-2023 E-mail encounter jacqui saunders caregiver Micah D Son DO Work Phone: [facility] Start: 01-30-2023 Telephone encounter Elida jurado PA-C Work Phone: Pre Anesthesia Comment on above: Reschedule [facility] Start: 01-29-2023 End: 01-29-2023 Admission to establishment [facility] Work Phone: [facility] Start: 01-29-2023 End: 01-29-2023 ambulatory [facility] Work Phone: Pre Anesthesia Comment on above: Canceled (CC cx: Equ ipment, Prep, Appropriateness) Start: 12-10-2022 End: 12-11-2022 Evaluation and management of inpatient DR DONTE CUELLAR . Facility: Start: 12-07-2022 End: 12-07-2022 ambulatory Debbie Ashley Other [employer] Other Start: 12-07-2022 Office outpatient vi sit 15 minutes Debbiesurjit Ramirez [facility] Start: 12-03-2022 End: 12-03-2022 ambulatory Karen Parrish Other [employer] Other Start: 12-03-2022 Office outpatient vi sit 25 minutes Karen Parrish [facility] Start: 10-02-2022 End: 10-02-2022 ambulatory PHYSICIAN NO [facility] Work Phone: Start: 10-02-2022 End: 10-02-2022 Departed Referred PHYSICIAN NO [facility] [place] Work Phone: Start: 09-19-2022 End: 09-19-2022 ambulatory Nell Ronnie GOVEA Work Phone: Gastroenterology Comment on above: Gastroesophageal ref lux disease, unspecified whether esophagitis present (Primary Dx); Screening for colon cancer; Hiatal hernia Start: 09-19-2022 End: 09-19-2022 Telemedicine consultation with patient Nell Trujillo 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 Work Phone: [facility] Start: 09-06-2022 End: 09-06-2022 Patient encounter procedure Micah Son DO Work Phone: Orthopaedics Comment on above: 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 (Primary Dx) Start: 08-12-2022 End: 08-12-2022 ambulatory DO Janet Dillard Work Phone: [facility] Work Phone: Start: 08-12-2022 End: 08-12-2022 Departed Referred DO Janet Dillard Work Phone: [facility] [place] Start: 07-03-2022 ambulatory Facility:[facility] Start: 07-02-2022 ambulatory Facility:[id number] Start: 07-02-2022 End: 07-02-2022 ambulatory DO Janet Dillard Work Phone: [facility] Work Phone: Start: 07-02-2022 End: 07-02-2022 Patient encounter procedure DO Janet Dillard Work Phone: [facility]Electrodiagnostics Start: 06-17-2022 End: 06-17-2022 ambulatory Dayanna Schumacher Other [facility] Other Start: 06-17-2022 Office outpatient vi sit 15 minutes Dayanna Schumacher [facility] Start: 05-02-2022 End: 05-02-2022 Patient encounter procedure HENRIK Perez Work Phone: [facility]MRI [facility] [place] Start: 04-03-2022 End: 04-03-2022 Orders Only Lopez Salmon DO Work Phone: Neurology Comment on above: Thyroid nodule (Prim parker Dx) BMI 50.0-59.9, adult (HCC) (Primary Dx); Primary osteoarthritis of left hip; Type 2 diabetes mellitus with hyperglycemia, unspecified whether family consumer science teacher insulin use (HCC) Start: 03-29-2022 End: 03-29-2022 Subsequent hospital visit by physician [facility] Work Phone: [facility] Ultrasound Comment on above: Thyroid [...] Telephone encounter Nayan Yan DO Work Phone: [address] [place] [address] Comment on above: Results Start: 12-08-2021 End: 12-08-2021 ambulatory [facility] Work Phone: Cardiology Comment on above: Event (Zio patch) Start: 12-08-2021 End: 12-08-2021 Patient encounter procedure John Dc MD Work Phone: Cardiology Comment on above: AF (paroxysmal atria l fibrillation) (HCC) (Primary Dx) Start: 07-07-2021 End: 07-07-2021 ambulatory Debbie Ramirez Other [facility] Other Start: 07-07-2021 Nursing evaluation o f patient and report Debbie Ramirez [facility] Start: 10-02-2018 Patient encounter procedure [facility] Start: 05-19-2018 Patient encounter procedure [facility] Start: 03-31-2018 End: 04-03-2018 Patient encounter procedure [facility] Start: 02-24-2018 Patient encounter procedure [facility] Procedures Date Procedure Procedure Detail Performing Clinician Start: 04-16-2025 Brncdilat rspse spmt ry pre&post-brncdilat admn Boom Tim MD Work Phone: Start: 04-05-2025 Adult depression scr eening assessment Rakesh Lamb DO Work Phone: Start: 03-30-2025 MAMM SCREENING BILAT ERAL W CAD Leo Rojas SSIS DEVELOPER-[employer]ARNISH REMOVER Work Phone: Start: 03-30-2025 End: 03-30-2025 Blood count complete auto&auto difrntl wbc Mitch Neri MD Work Phone: Start: 02-19-2025 Urnls dip stick/tabl et rgnt auto w/o microscopy Minal Deitzer DO Work Phone: Start: 02-15-2025 Arthrocentesis aspir &/inj major jt/bursa w/us Micah D Son DO Work Phone: Start: 02-15-2025 Arthrocentesis aspir &/inj major jt/bursa w/us Micah D Son DO Work Phone: Start: 02-15-2025 Radex hip unilateral with pelvis 2-3 views Micah D Son DO Work Phone: Start: 12-24-2024 Ecg routine ecg w/le ast 12 lds i&r only [facility] Provider Start: 12-24-2024 Blood count complete auto&auto difrntl wbc Mitch Neri MD Work Phone: Start: 09-30-2024 Dual energy X-ray absorptiometry Sunny Jenkins MD Work Phone: Start: 09-11-2024 Blood count complete auto&auto difrntl wbc Mitch Neri MD Work Phone: Start: 07-17-2024 Ecg routine ecg w/le ast [...] wbc Mitch Neri MD Work Phone: Start: 01-21-2024 Bilirubin direct Cathy Templeton PA-C Work Phone: Start: 01-14-2024 Blood count complete auto&auto difrntl wbc Mitch Neri MD Work Phone: Start: 01-07-2024 Blood count complete auto&auto difrntl wbc Mitch Neri MD Work Phone: Start: 12-31-2023 Blood count complete auto&auto difrntl wbc Mitch Neri MD Work Phone: Start: 12-24-2023 Blood count complete auto&auto difrntl wbc Brianna Renner APRN.CNP Work Phone: Start: 12-10-2023 Blood count complete auto&auto difrntl wbc Cathy Saunders Yokasta PA-C Work Phone: Start: 12-03-2023 Blood count complete auto&auto difrntl wbc Mitch Neri MD Work Phone: Start: 11-26-2023 Blood count complete auto&auto difrntl wbc Brianna Renner 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 Work Phone: Start: 11-05-2023 CBC + DIFF Mitch beebe MD Work Phone: Start: 11-05-2023 Comprehensive metabo lic panel Mitch Neri MD Work Phone: Start: 10-22-2023 Blood count complete auto&auto difrntl wbc Cathy Saunders Yokasta CHANDLER-C Work Phone: Start: 07-29-2023 Lymphatics & lymph n odes imaging Heather Castillo MD Work Phone: Start: 07-23-2023 Us lmtd joint/oth no nvasc xtr strux r-t w/img Heather Castillo MD Work Phone: Start: 05-14-2023 Adult depression scr eening assessment Kalyani Rachel [employer]ER[employer] Start: 04-24-2023 Lipid 1996 panel - S [place] or Plasma Cymbre Arnaldo RN Start: 02-11-2023 Colonoscopy Cymbre All en RN Start: 09-06-2022 Arthrocentesis aspir &/inj major jt/bursa w/us Micahallen Son DO Work Phone: Start: 08-12-2022 Urine [...] above: Performed By: #### T [id number] #### [place] [address] Start: 07-23-2016 Colonoscopy John torres MD Work Phone: Start: 01-10-2010 Adult depression scr eening assessment John Dc MD Work Phone: Plan of Treatment Date Care Activity Detail Author Start: 04-24-2028 Lipid 1996 panel - Serum or Plasma Lipid Screening [facility] Start: 04-24-2028 Lipid panel Lipid Screening [facility] Start: 03-30-2028 Diabetes Screening Diabetes Screening [facility] Start: 02-12-2028 Colonoscopy Colonoscopy [facility] Start: 02-12-2028 Colorectal Cancer Screening Colorectal Cancer Screening [facility] Start: 02-12-2028 Screening for malignant neoplasm of colon [facility] Start: 12-25-2027 Diabetes Screening Diabetes Screening [facility] Start: 11-09-2027 LIPID SCREEN LIPID SCREEN [facility] Start: 09-11-2027 Diabetes Screening Diabetes Screening [facility] Start: 07-14-2027 Diabetes Screening Diabetes Screening [facility] Start: 07-06-2027 Diabetes Screening Diabetes Screening [facility] Start: 06-01-2027 Diabetes Screening Diabetes Screening [facility] Start: 05-05-2027 Diabetes Screening Diabetes Screening [facility] Start: 04-21-2027 Diabetes Screening Diabetes Screening [facility] Start: 03-03-2027 Diabetes Screening Diabetes Screening [facility] Start: 01-20-2027 Diabetes Screening Diabetes Screening [facility] Start: 01-16-2027 Diabetes Screening Diabetes Screening [facility] Start: 01-13-2027 Diabetes Screening Diabetes Screening [facility] Start: 01-06-2027 Diabetes Screening Diabetes Screening [facility] Start: 12-30-2026 Diabetes Screening Diabetes Screening [facility] Start: 12-23-2026 Diabetes Screening Diabetes Screening [facility] Start: 12-09-2026 Diabetes Screening Diabetes Screening [facility] Start: 12-02-2026 Diabetes Screening Diabetes Screening [facility] Start: 11-25-2026 Diabetes Screening Diabetes Screening [facility] Start: 11-04-2026 Diabetes Screening Diabetes Screening [facility] Start: 10-22-2026 Diabetes Screening Diabetes Screening [facility] Start: 09-20-2026 Diabetes Screening Diabetes Screening [facility] Start: 07-26-2026 Diabetes Screening Diabetes Screening [facility] Start: 04-24-2026 Diabetes Screening Diabetes Screening [facility] Start: 04-05-2026 Adult BMI Screening Adult BMI Screening [facility] Start: 04-05-2026 Depression Screening Depression Screening [facility] Start: 04-05-2026 Tobacco Screening Tobacco Screening [facility] Start: 03-30-2026 Complete blood count Hemoglobin/Hematocrit [facility] Start: 03-30-2026 Creatinine measurement Serum Creatinine [facility] Start: 03-30-2026 Screening for malignant neoplasm of breast Mammogram Screening [facility] Start: 03-05-2026 Screening for malignant neoplasm of breast Mammogram Screening [facility] Start: 12-30-2025 BP Controlled (<130/80) BP Controlled (<130/80) [facility] Start: 12-24-2025 Complete blood count Hemoglobin/Hematocrit [facility] Start: 12-24-2025 Creatinine measurement Serum Creatinine [facility] Start: 11-08-2025 DIABETES SCREEN DIABETES SCREEN [facility] Start: 11-01-2025 End: 11-01-2025 Patient encounter procedure 11/01/2025 2:00 PM EDT Office Visit Rheumatology [address] [place] [address] Nany Bustillos MD [address] [place] [address] RA Rheumatology Comment on above: RA Start: 09-11-2025 Complete blood count Hemoglobin/Hematocrit [facility] Start: 09-11-2025 Creatinine measurement Serum Creatinine [facility] Start: 08-23-2025 End: 08-23-2025 Patient encounter procedure [facility] in[facility] Comment on above: 6 month follow up Start: 07-16-2025 BP Controlled (<130/80) BP Controlled (<130/80) [facility] Start: 07-15-2025 BP Controlled (<130/80) BP Controlled (<130/80) [facility] Start: 07-15-2025 End: 07-15-2025 ambulatory 07/15/2025 9:00 AM [facility] Hematology/Oncology [address] [place] [address] Prolia injection day after ALLEN virtual visit per staff message Hematology/Oncology Comment on above: Prolia injection day after ALLEN virtual v isit per staff message Start: 07-14-2025 End: 10-13-2025 CBC W Auto Differential panel - Blood COMPLETE BLOOD COUNT AND DIFFERENTIAL Lab Routine Invasive lobular carcinoma of breast in female (HCC) Expected: 07/14/2025 (Approximate), Expires: 10/13/[address] [facility] Work Phone: Comment on above: Expected: 07/14/2025 (Approximate), Expi res: 10/13/2025 Start: 07-14-2025 End: 10-13-2025 Comprehensive metabolic 2000 panel - Serum or Plasma COMPREHENSIVE METABOLIC PANEL Lab Routine Invasive lobular carcinoma of breast in female (HCC) Expected: 07/14/2025 (Approximate), Expires: 10/13/2025 [facility] Comment on above: Expected: 07/14/2025 (Approximate), Expi res: 10/13/2025 Start: 07-14-2025 Creatinine measurement Serum Creatinine [facility] Start: 07-14-2025 End: 07-14-2025 Patient encounter procedure 07/14/2025 9:30 AM [facility] Hematology [address] [place] [address] Mitch Neri MD [address] [place] [address] Schedule labs prior to Virtual visit with DR Neri Hematology Comment on above: Schedule labs prior to Virtual visit wit tam Neri Start: 07-07-2025 End: 07-07-2025 ambulatory 07/07/2025 9:00 AM [facility] Infusion Center Hematology/Oncology [address] [place] [address] [place] [address] lab Hematology/Oncology Comment on above: lab Start: 07-06-2025 Complete blood count Hemoglobin/Hematocrit [facility] Start: 07-06-2025 Creatinine measurement Serum Creatinine [facility] Start: 06-22-2025 End: 06-22-2025 Patient encounter procedure 06/22/2025 9:00 AM EDT Office Visit [facility] [address] [place] [phone] Sunny Jenkins MD [address], [place], [place] [phone] [facility] Start: 06-10-2025 Adult BMI Screening Adult BMI Screening [facility] Start: 06-10-2025 Depression Screening Depression Screening [facility] Start: 06-10-2025 Fall Risk Screening Fall Risk Screening [facility] Start: 06-10-2025 Medicare Annual Wellness Visit Medicare Annual Wellness Visit [facility] Start: 06-10-2025 Tobacco Screening Tobacco Screening [facility] Start: 06-10-2025 End: 06-10-2025 Patient encounter procedure 06/10/2025 1:30 PM EDT Appointment Procedures [address] [place] [address] Debbie Gunn MD [address] [place] [address] [place] [address] Procedures Start: 06-01-2025 Complete blood count Hemoglobin/Hematocrit [facility] Start: 06-01-2025 Creatinine measurement Serum Creatinine [facility] Start: 05-17-2025 End: 05-17-2025 Patient encounter procedure 05/17/2025 8:30 AM EDT Office Visit Pulmonary Medicine [address] [place] [address] Dayanna Alatorre APRN.[employer]OVER [address] [place] [address] Return in about 1 month (around 05/17/2025). Pulmonary Medicine Comment on above: Return in about 1 month (around ). Start: 05-17-2025 End: 05-17-2025 ambulatory Pulmonary Lab Comment on above: Dyspnea and respiratory abnormalities [R 06.00, R06.89] Start: 05-10-2025 End: 05-10-2025 Specialty Pharmacy 05/10/2025 7:15 AM EDT Specialty Pharmacy [facility] [address] [place] [address] Pharmacist, [facility] [address] [place] [address] [address] [place] [id number] Refill - Kisqali [28DS] C005/17 [facility] Comment on above: Refill - Kisqali [28DS] C005/17 Start: 05-05-2025 BP Controlled (<130/80) BP Controlled (<130/80) [facility] Start: 05-05-2025 Complete blood count Hemoglobin/Hematocrit [facility] Start: 05-05-2025 Creatinine measurement Serum Creatinine [facility] Start: 05-05-2025 End: 08-04-2025 Thyrotropin [Units/volume] in Serum or Plasma THYROID STIMULATING HORMONE Lab Routine Multiple thyroid nodules Expected: 05/05/2025, Expires: 08/04/[address] [facility] Work Phone: Comment on above: Expected: 05/05/2025, Expires: Start: 04-26-2025 Influenza vaccination [facility] Start: 04-21-2025 Complete blood count Hemoglobin/Hematocrit [facility] Start: 04-21-2025 Creatinine measurement Serum Creatinine [facility] Start: 04-14-2025 End: 04-14-2025 Specialty Pharmacy 04/14/2025 7:45 AM EDT Specialty Pharmacy [facility] [address] [place], [place] [id number] Pharmacist, [facility] [address] [place] [address] [place] [address] Refill - Kisqali [28DS] - refill rqst 04/09 [facility] Comment on above: Refill - Kisqali [28DS] - refill rqst 04/09 Start: 04-13-2025 End: 04-13-2025 Patient encounter procedure 04/13/2025 2:45 PM EDT Visit (SP) Office Hematology [address] [place] [address] Mitch Neri MD [address] [place] [address] F/U with Dr. Neri Hematology Comment on above: F/U with Dr. Neri Start: 04-13-2025 Tobacco Screening Tobacco Screening [facility] Start: 04-12-2025 End: 04-12-2025 Specialty Pharmacy 04/12/2025 7:30 AM EDT Specialty Pharmacy [facility] [address] [place] [address]-[address] [place] [address] [phone] Pharmacist, [facility] [address] [place] [address] Refill - Kisqali [28DS] [facility] Comment on above: Refill - Kisqali [28DS] C004/19 Start: 04-05-2025 End: 04-05-2025 ambulatory 04/05/2025 10:00 AM EDT [facility] Hematology/Oncology [address] [place] [address] [place] [address] activase per Nel L Hematology/Oncology Comment on above: activase per Nel L Start: 04-02-2025 End: 04-02-2025 Patient encounter procedure Procedures Comment on above: Hiatal hernia [K44.9] Start: 04-01-2025 End: 04-01-2025 Patient encounter procedure 04/01/2025 3:15 PM EDT Office Visit [facility] [address] [place] [address] Sunny Jenkins MD [address] [facility], [place] [address] [facility] Start: 04-01-2025 End: 07-01-2025 CBC W Auto Differential panel - Blood COMPLETE BLOOD COUNT AND DIFFERENTIAL Lab Routine Invasive lobular carcinoma of breast in female (HCC) Expected: 04/01/2025 (Approximate), Expires: 07/01/[address] [facility] Work Phone: Comment on above: Expected: 04/01/2025 (Approximate), Expi res: 07/01/2025 Start: 04-01-2025 End: 07-01-2025 Comprehensive metabolic 2000 panel - Serum or Plasma COMPREHENSIVE METABOLIC PANEL Lab Routine Invasive lobular carcinoma of breast in female (HCC) Expected: 04/01/2025 (Approximate), Expires: 07/01/2025 [facility] Comment on above: Expected: 04/01/2025 (Approximate), Expi res: 07/01/2025 Start: 04-01-2025 End: 04-01-2025 Patient encounter procedure Hematology Comment on above: F/U with Dr. Neri 04/01/25 Stage 3 chronic kidn ey disease, unspecified whether stage 3a or 3b CKD (HCC) [N18.30] Start: 03-19-2025 End: 03-19-2025 Anesthesia consultation 03/19/2025 10:30 AM EDT PAT Pre Anesthesia [address] [place] [address] VV [id number] EGD 04/02 Pre Anesthesia Comment on above: VV [id number] EGD 04/02 Start: 03-16-2025 DIABETES SCREEN DIABETES SCREEN [facility] Start: 03-15-2025 DIABETES SCREEN DIABETES SCREEN [facility] Start: 03-15-2025 End: 03-15-2025 Specialty Pharmacy 03/15/2025 7:15 AM EDT Specialty Pharmacy [facility] [address] [place] [address] Drive [address] [place] [address] Pharmacist, [facility] [address] [place] [address] [place] [address] Refill - Kisqali [28DS] C07/ [facility] Comment on above: Refill - Kisqali [28DS] C07/28 Start: 03-05-2025 End: 03-05-2025 Patient encounter procedure 03/05/2025 11:30 AM EDT Office Visit Plastic Surgery [address] [place] [phone] Andres Mann MD [address] [place] [address] [place], [place] [id number] POST OP Plastic Surgery Comment on above: POST OP Start: 03-04-2025 End: 03-04-2025 Patient encounter procedure 03/04/2025 11:45 AM EDT Office Visit Plastic Surgery [address] [place] [phone] Andres Mann MD [address] [place] [address] [place] [address] POST OP Plastic Surgery Comment on above: POST OP Start: 03-03-2025 Complete blood count Hemoglobin/Hematocrit [facility] Start: 03-03-2025 Creatinine measurement Serum Creatinine [facility] Start: 02-23-2025 End: 02-23-2025 Admission to same day surgery center [facility] Surgery Comment on above: CLOSURE COMPLEX WOUND OF CHEEK(S) 1.1 -> 2.5CM Start: 02-23-2025 End: 02-23-2025 Repair complex f/c/c/m/n/ax/g/h/f 1.1-2.5 cm AV OR Start: 02-23-2025 Subsequent hospital visit by physician [facility] Surgery Comment on above: Inclusion cyst [L72.0] Start: 02-19-2025 End: 05-21-2025 25-hydroxyvitamin D3 [Mass/volume] in Serum or Plasma VITAMIN D 25 HYDROXY Lab Routine Stage 3 chronic kidney disease, unspecified whether stage 3a or 3b CKD (HCC) Primary hypertension Expected: 02/19/2025, Expires: 05/21/2025 [facility] Comment on above: Expected: 02/19/2025, Expires: Start: 02-19-2025 End: 05-21-2025 Hemoglobin A1c in Blood HEMOGLOBIN A1C Lab Routine Stage 3 chronic kidney disease, unspecified whether stage 3a or 3b CKD (HCC) Abnormal finding of blood chemistry, unspecified Expected: 02/19/2025, Expires: 05/21/2025 [facility] Comment on above: Expected: 02/19/2025, Expires: Start: 02-19-2025 End: 05-21-2025 Parathyrin.intact [Mass/volume] in Serum or Plasma PTH INTACT Lab Routine Stage 3 chronic kidney disease, unspecified whether stage 3a or 3b CKD (HCC) Expected: 02/19/2025, Expires: 05/21/2025 [facility] Comment on above: Expected: 02/19/2025, Expires: Start: 02-19-2025 End: 05-21-2025 Renal function 2000 panel - Serum or Plasma RENAL FUNCTION PANEL Lab Routine Stage 3 chronic kidney disease, unspecified whether stage 3a or 3b CKD (HCC) Primary hypertension Expected: 02/19/2025, Expires: 05/21/2025 [facility] Comment on above: Expected: 02/19/2025, Expires: Start: 02-19-2025 End: 02-19-2025 Patient encounter procedure 02/19/2025 8:20 AM EDT Office Visit Kidney Medicine [address] [place], [place] [id number] Minal Khanna DO [address] [place] [address] Elevated serum creatinine [facility]ney Medicine Comment on above: Elevated serum creatinine Start: 02-16-2025 End: 02-16-2026 DBT Breast - bilateral screening Mammography screening bilateral with CAD Imaging Routine Encounter for screening mammogram for malignant neoplasm of breast Expected: 02/16/2025, Expires: 02/16/2026 [facility] Work Phone: Comment on above: Expected: 02/16/2025, Expires: Start: 02-15-2025 End: 02-15-2025 Patient encounter procedure 02/15/2025 11:10 AM EDT Office Visit General Surgery [address] [place] [address] Gó[place] [address] [place] [address] Hiatal hernia [K44.9] General Surgery Comment on above: Hiatal hernia [K44.9] Start: 02-15-2025 End: 02-15-2025 Patient encounter procedure Plastic Surg nat Comment on above: SHEBA ok to add per Nidia Follow up Start: 02-15-2025 End: 02-15-2025 Specialty Pharmacy 02/15/2025 7:15 AM EDT Specialty Pharmacy [facility] [place] [employer] [facility] [place] [address] Pharmacist, [facility] [address] [place] [address] [place], [place] [id number] Refill - Kisqali [28DS] C002/22 [facility] Comment on above: Refill - Kisqali [28DS] C002/22 Start: 02-06-2025 BP Controlled (<130/80) BP Controlled (<130/80) [facility] Start: 01-27-2025 Adult BMI Screening Adult BMI Screening [facility] Start: 01-27-2025 Tobacco Screening Tobacco Screening [facility] Start: 01-23-2025 Screening for malignant neoplasm of breast Mammogram Screening [facility] Start: 01-20-2025 Complete blood count Hemoglobin/Hematocrit [facility] Start: 01-20-2025 Creatinine measurement Serum Creatinine [facility] Start: 01-19-2025 End: 01-19-2025 Specialty Pharmacy 01/19/2025 7:30 AM EDT Specialty Pharmacy [facility] [address] [place], [place] [id number]-[id number] [place] [address] Pharmacist, [facility] [address] [place] [address] [place] [id number] Refill - Kisqali [28DS] C001/25 [facility] Comment on above: Refill - Kisqali [28DS] C06 Start: 01-16-2025 Creatinine measurement Serum Creatinine [facility] Start: 01-13-2025 BP Controlled (<130/80) BP Controlled (<130/80) [facility] Start: 01-13-2025 Complete blood count Hemoglobin/Hematocrit [facility] Start: 01-13-2025 Creatinine measurement Serum Creatinine [facility] Start: 01-11-2025 End: 01-11-2025 Patient encounter procedure 01/11/2025 9:20 AM EDT Office Visit Kidney Medicine [address] [place] [address] [place] [address] [place] [address] Elevated serum creatinine [R79.89] Kidney Medicine Comment on above: Elevated serum creatinine [R79.89] Start: 01-06-2025 BP Controlled (<130/80) BP Controlled (<130/80) [facility] Start: 01-06-2025 Complete blood count Hemoglobin/Hematocrit [facility] Start: 01-06-2025 Creatinine measurement Serum Creatinine [facility] Start: 12-30-2024 End: 03-31-2025 CBC W Auto Differential panel - Blood COMPLETE BLOOD COUNT AND DIFFERENTIAL Lab Routine Invasive lobular carcinoma of breast in female (HCC) Expected: 12/30/2024 (Approximate), Expires: 03/31/2025 [facility] Comment on above: Expected: 12/30/2024 (Approximate), Expi res: 03/31/2025 Start: 12-30-2024 Complete blood count Hemoglobin/Hematocrit [facility] Start: 12-30-2024 End: 03-31-2025 Comprehensive metabolic 2000 panel - Serum or Plasma COMPREHENSIVE METABOLIC PANEL Lab Routine Invasive lobular carcinoma of breast in female (HCC) Expected: 12/30/2024 (Approximate), Expires: 03/31/[address] [facility] Work Phone: Comment on above: Expected: 12/30/2024 (Approximate), Expi res: 03/31/2025 Start: 12-30-2024 Creatinine measurement Serum Creatinine [facility] Start: 12-30-2024 End: 11-01-2025 DBT Breast - bilateral screening TINO SCREENING W [facility] Radiology Routine Invasive lobular carcinoma of breast in female (HCC) Encounter for screening mammogram for malignant neoplasm of breast Expected: 12/30/2024, Expires: 11/01/2025 [facility] Comment on above: Expected: 12/30/2024, Expires: Start: 12-30-2024 End: 12-30-2024 Admission to same day surgery center 12/30/2024 9:45 AM EDT Visit (SP) Office Hematology [address] [place] [address] Mitch Neri MD [address] [place] [address] Schedule consult with plastic surgery Hematology Comment on above: Schedule consult with plastic surgery Start: 12-30-2024 End: 12-30-2024 Patient encounter procedure 12/30/2024 9:45 AM EDT Visit (SP) Office Hematology [address] [place] [address] Mitch Neri MD [address] [place] [address] BREAST CA Hematology Comment on above: BREAST CA Start: 12-24-2024 End: 12-24-2024 ambulatory 12/24/2024 9:00 AM EDT [facility] Hematology/Oncology [address] [place] [address] [place] [address] lab/port Hematology/Oncology Comment on above: lab/port Start: 12-23-2024 BP Controlled (<130/80) BP Controlled (<130/80) [facility] Start: 12-23-2024 Complete blood count Hemoglobin/Hematocrit [facility] Start: 12-23-2024 Creatinine measurement Serum Creatinine [facility] Start: 12-21-2024 End: 12-21-2024 Specialty Pharmacy 12/21/2024 8:00 AM EDT Specialty Pharmacy [facility] [address] [place] [address] [address] [place] [address] Pharmacist, [facility] [address] [place] [address] [place] [address] Refill - Kisqali [28DS] C5/5 [facility] Comment on above: Refill - Kisqali [28DS] C5/5 Start: 11-26-2024 Adult BMI Screening Adult BMI Screening [facility] Start: 11-26-2024 Tobacco Screening Tobacco Screening [facility] Start: 11-25-2024 BP Controlled (<130/80) BP Controlled (<130/80) [facility] Start: 11-25-2024 End: 11-25-2024 Patient encounter procedure 11/25/2024 8:20 AM EDT Office Visit Kidney Medicine [address] [place], [place] [phone] Minal Khanna DO [address] [place], [place] [phone] Elevated serum creatinine [R79.89] Kidney Medicine Comment on above: Elevated serum creatinine [R79.89] Start: 11-24-2024 End: 02-23-2025 CBC W Auto Differential panel - Blood COMPLETE BLOOD COUNT AND DIFFERENTIAL Lab Routine Invasive lobular carcinoma of breast in female (HCC) Expected: 11/24/2024, Expires: 02/23/[address] [facility] Work Phone: Comment on above: Expected: 11/24/2024, Expires: Start: 11-24-2024 End: 02-23-2025 Comprehensive metabolic 2000 panel - Serum or Plasma COMPREHENSIVE METABOLIC PANEL Lab Routine Invasive lobular carcinoma of breast in female (HCC) Expected: 11/24/2024, Expires: 02/23/2025 [facility] Comment on above: Expected: 11/24/2024, Expires: Start: 11-23-2024 End: 11-23-2024 Specialty Pharmacy 11/23/2024 7:15 AM EDT Specialty Pharmacy [facility] [address] [place] [address] Drive [address] [place] [address] Pharmacist, [facility] [address] [place] [address] [place] [address] Refill - Kisqali [28DS] C011/30 [facility] Comment on above: Refill - Kisqali [28DS] C011/30 Start: 11-16-2024 Tobacco Screening Tobacco Screening [facility] Start: 11-13-2024 Adult BMI Screening Adult BMI Screening [facility] Start: 2024 End: 2024 Patient encounter procedure 2024 10:00 AM EDT Office Visit [facility] [address] [place] [address] [place] [phone] Rakesh Lamb, [address] [place] [address], [address], [place] [address] [facility] Start: 10-26-2024 End: 10-26-2024 Specialty Pharmacy 10/26/2024 7:30 AM EST Specialty Pharmacy [facility] [address] [place] [address]-[address] [place] [address] Pharmacist, [facility] [address] [place] [address] [place] [address] Refill - Kisqali [28DS] c011/02 [facility] Comment on above: Refill - Kisqali [28DS] c03 Start: 10-15-2024 End: 10-15-2024 Patient encounter procedure 10/15/2024 9:00 AM EST Office Visit General Surgery [address] [place] [address] Sierra Atkins MD [address] [place] [address] New: cutaneous abscess of groin; ref by Dr. Neri hx breast cancer s/p chemo/radiation; seen by local [facility] for groin cyst in 12/2023; resolved with antibiotics General Surgery Comment on above: New: cutaneous abscess of groin; ref by Dr. Neir hx breast cancer s/p chemo/radiation; seen by local [facility] for groin cyst in 12/2023; resolved with antibiotics Start: 10-09-2024 Adult BMI Screening Adult BMI Screening [facility] Start: 10-09-2024 Tobacco Screening Tobacco Screening [facility] Start: 10-08-2024 End: 10-08-2024 Patient encounter procedure 10/08/2024 9:00 AM EST Office Visit General Surgery [address] [place] [address] Sierra Atkins MD [address] [facility] [address] [place], [place] [phone] Cutaneous abscess of groin [L02.214] General Surgery Comment on above: Cutaneous abscess of groin [L02.214] Start: 10-02-2024 End: 10-02-2024 Patient encounter procedure Hematology Comment on above: BREAST CA zometa Start: 09-29-2024 End: 09-29-2024 Nursing evaluation of patient and report 09/29/2024 9:15 AM EST Nurse Visit Hematology/Oncology [address] [facility] [facility] [address] [place], [place] [phone] Georgina Solano Nurse Adolfo [address] [place] [address] EKG per CC CHART Hematology/Oncology Comment on above: EKG per CC CHART Start: 09-21-2024 End: 09-21-2024 Specialty Pharmacy 09/21/2024 7:45 AM EST Specialty Pharmacy [facility] [address] [place], [place] [address]64[address] [place] [address] Pharmacist, Specialtygroup [address] [place] [address] [place] [address] Refill - Kisqali [28ds] confirm cycle start date - next cycle ~ 09/29 [facility] Comment on above: Refill - Kisqali [28ds] confirm cycle st art date - next cycle ~ 09/29 Start: 09-18-2024 Adult BMI Screening Adult BMI Screening [facility] Start: 09-14-2024 End: 09-14-2024 Patient encounter procedure 09/14/2024 2:00 PM EST Office Visit Radiation Oncology [address] [facility] [place] [address] Josef Austin MD [address] [place] [address] [place] [address] 6 month rv Radiation Oncology Comment on above: 6 month rv Start: 09-10-2024 End: 09-10-2024 Patient encounter procedure 09/10/2024 10:15 AM EST Office Visit [facility] [address] [place] [address] [place] [address] Sunny Jenkins MD [address], [place] [address] [facility] Start: 09-08-2024 End: 09-08-2024 Patient encounter procedure 09/08/2024 8:20 AM EST Appointment Radiology [address] [place] [address] Encounter for screening for osteoporosis [Z13.820] Radiology Comment on above: Encounter for screening for osteoporosis [Z13.820] Start: 09-01-2024 End: 09-01-2024 Biopsy thyroid percutaneous core needle BIOPSY THYROID Multiple thyroid nodules 09/01/2024 2:40 PM EST [facility] Start: 09-01-2024 End: 09-01-2024 Admission to same day surgery center 09/01/2024 12:05 PM EST - 09/01/2024 1:05 PM EST Surgery [facility] [address] [place] [address] [place] [address] [place] [address] BIOPSY THYROID [facility] Comment on above: BIOPSY THYROID Start: 09-01-2024 End: 09-01-2024 Biopsy thyroid percutaneous core needle BIOPSY THYROID Multiple thyroid nodules 09/01/2024 12:05 PM EST [facility] Start: 09-01-2024 Subsequent hospital visit by physician 09/01/2024 12:05 PM EST Hospital Encounter [facility] [address] [facility] [place] [address] [place] [address] [place] [address] Multiple thyroid nodules [E04.2] [facility] Comment on above: Multiple thyroid nodules [E04.2] Start: 09-01-2024 End: 09-01-2024 Patient encounter procedure 09/01/2024 9:45 AM EST Visit (SP) Office Hematology [address] [place] [address] Mitch Neri MD [address] [place] [address] Schedule Office visit with Dr Culver in 3 weeks Hematology Comment on above: Schedule Office visit with Dr Culver in 3 wee ks Start: 08-26-2024 Advance Directive Discussion Advance Directive Discussion [facility] Start: 08-12-2024 End: 08-12-2024 Patient encounter procedure Endocrinolog y Comment on above: Biopsy ok per 06/23 [facility] Start: 08-07-2024 Adult BMI Screening Adult BMI Screening [facility] Start: 08-07-2024 Tobacco Screening Tobacco Screening [facility] Start: 08-06-2024 End: 11-05-2024 CBC W Auto Differential panel - Blood COMPLETE BLOOD COUNT AND DIFFERENTIAL Lab Routine Invasive lobular carcinoma of breast in female (HCC) Expected: 08/06/2024 (Approximate), Expires: 11/05/2024 [facility] Comment on above: Expected: 08/06/2024 (Approximate), Expi res: 11/05/2024 Start: 08-06-2024 End: 11-05-2024 Comprehensive metabolic 2000 panel - Serum or Plasma COMPREHENSIVE METABOLIC PANEL Lab Routine Invasive lobular carcinoma of breast in female (HCC) Expected: 08/06/2024 (Approximate), Expires: 11/05/2024 [facility] Comment on above: Expected: 08/06/2024 (Approximate), Expi res: 11/05/2024 Start: 08-06-2024 End: 08-06-2024 Patient encounter procedure 08/06/2024 9:45 AM EST Visit (SP) Office Hematology [address] [place] [address] Mitch Neri MD [address] [place] [address] Schedule Office visit with Dr Culver in 3 weeks Hematology Comment on above: Schedule Office visit with Dr Culver in 3 wee ks Start: 07-21-2024 End: 07-21-2024 Patient encounter procedure 07/21/2024 10:00 AM EST Office Visit OPHT Ophthalmology [address] [facility] [place] [address] Rakesh Palma, OD [address] [address] 1 MONTH Ophthalmology Comment on above: 1 MONTH Start: 07-17-2024 End: 07-17-2024 Nursing evaluation of patient and report 07/17/2024 9:15 AM EST Nurse Visit Hematology/Oncology [address] [place] [address] Georgina Solano Nurse Adolfo [address] [place] [address] EKG wallace per staff message-[facility] patient Hematology/Oncology Comment on above: EKG wallace per staff message-[facility] patient Start: 07-16-2024 End: 07-16-2024 Patient encounter procedure 07/16/2024 1:45 PM EST Visit (SP) Office Hematology [address] [place] [address] Mitch Neri MD [address] [place] [address] MD exam and labs prior to the [...] female (HCC) Expected: 07/15/2024 (Approximate), Expires: 10/14/2024 [facility] Comment on above: Expected: 07/15/2024 (Approximate), Expi res: 10/14/2024 Start: 07-15-2024 End: 10-14-2024 Comprehensive metabolic 2000 panel - Serum or Plasma COMPREHENSIVE METABOLIC PANEL Lab Routine Invasive lobular carcinoma of breast in female (HCC) Expected: 07/15/2024 (Approximate), Expires: 10/14/2024 [facility] Comment on above: Expected: 07/15/2024 (Approximate), Expi res: 10/14/2024 Start: 07-15-2024 End: 07-15-2024 Patient encounter procedure 07/15/2024 2:00 PM EST Office Visit Endocrinology [address] [place] [address] Sandy Mcgregor MD, PhD [address] [place] [address] ok per 06/23 [facility] Comment on above: ok per 06/23 [facility] Start: 07-14-2024 End: 07-14-2024 Patient encounter procedure 07/14/2024 3:30 PM EST Office Visit OPHT Ophthalmology [address] [place] [address] Rakesh Palma, OD [address] [place] [address] 1 MONTH Ophthalmology Comment on above: 1 MONTH Start: 07-09-2024 End: 07-09-2024 Telemedicine consultation with patient 07/09/2024 7:45 AM EST Telemedicine [facility] [address] [facility] [place] [address] Sunny Jenkins MD [address] [place] [address] [facility] Start: 06-23-2024 End: 06-23-2024 Patient encounter procedure 06/23/2024 10:30 AM EDT Office Visit OPHT Ophthalmology [address] [place] [address] Rakesh Palma, OD [address] [place] [address] 1 WEEK Ophthalmology Comment on above: 1 [...] prtl coher intrfrmtry io lens pwr louise [facility] Start: 06-17-2024 Subsequent hospital visit by physician Ambulatory Surgery Comment on above: Combined forms of age-related cataract o f both eyes [H25.813] Start: 06-17-2024 End: 06-17-2024 Xcapsl ctrc rmvl insj io lens prosth w/o ecp [facility] Start: 06-10-2024 End: 09-09-2024 Basic metabolic 2000 panel - Serum or Plasma BASIC METABOLIC PANEL Lab Routine Invasive lobular carcinoma of breast in female (HCC) Expected: 06/10/2024 (Approximate), Expires: 09/09/2024 [facility] Comment on above: Expected: 06/10/2024 (Approximate), Expi res: 09/09/2024 Start: 06-10-2024 End: 09-09-2024 CYSTATIN C CYSTATIN C Lab Routine Invasive lobular carcinoma of breast in female (HCC) Expected: 06/10/2024 (Approximate), Expires: 09/09/[address] [facility] Work Phone: Comment on above: Expected: 06/10/2024 (Approximate), Expi res: 09/09/2024 Start: 06-10-2024 End: 06-10-2024 Patient encounter procedure [facility] Start: 06-09-2024 End: 06-09-2024 Patient encounter procedure 06/09/2024 10:30 AM EDT Office Visit OPHT Ophthalmology [address] [place] [address] Rakesh Palma, OD [address] [place] [address] 1 WEEK Ophthalmology Comment on above: 1 WEEK Start: 06-03-2024 End: 06-03-2024 Patient encounter procedure 06/03/2024 1:30 PM EDT Visit (SP) Office Hematology [address] [place] [address] Mitch Neri MD [address] [place] [address] BREAST CA Hematology Comment on above: [...] io lens pwr louise [facility] Start: 06-02-2024 Subsequent hospital visit by physician Ambulatory Surgery Comment on above: Combined forms of age-related cataract o f both eyes [H25.813] Start: 06-02-2024 End: 06-02-2024 Xcapsl ctrc rmvl insj io lens prosth w/o ecp [facility] Start: 05-21-2024 End: 05-21-2024 Follow-up encounter 05/21/2024 10:00 AM EDT Visit (SP) Office Hematology [address] [place] [address] Mitch Neri MD [address] [place] [address] [address] Neri in 4 weeks Hematology Comment on above: Follow up with Dr. Neri in 4 weeks Start: 05-19-2024 End: 05-19-2024 Patient encounter procedure Endocrinolog y Comment on above: thyroid nodule, 4mm Cataract: Left eye ( OS) then Right eye (OD) Start: 05-19-2024 End: 05-19-2024 Anesthesia consultation 05/19/2024 2:20 PM EDT PAT Pre Anesthesia [address] [place] [address] 1, Pacc Castile [address] [place] [address] Cataract: Left eye (OS) then Right eye (OD) Pre Anesthesia Comment on above: Cataract: Left eye (OS) then Right eye ( OD) Start: 05-19-2024 End: 08-18-2024 CBC W Auto Differential panel - Blood COMPLETE BLOOD COUNT AND DIFFERENTIAL Lab Routine Invasive lobular carcinoma of breast in female (HCC) Expected: 05/19/2024 (Approximate), Expires: 08/18/[address] [facility] Work Phone: Comment on above: Expected: 05/19/2024 (Approximate), Expi res: 08/18/2024 Start: 05-19-2024 End: 08-18-2024 Comprehensive metabolic 2000 panel - Serum or Plasma COMPREHENSIVE METABOLIC PANEL Lab Routine Invasive lobular carcinoma of breast in female (HCC) Expected: 05/19/2024 (Approximate), Expires: 08/18/2024 [facility] Comment on above: Expected: 05/19/2024 (Approximate), Expi res: 08/18/2024 Start: 05-15-2024 End: 05-15-2024 Patient encounter procedure 05/15/2024 12:00 PM EDT Education Hematology [address] [place] [address] Schedule chemo teach with Nia for Verzenio Hematology Comment on above: Schedule chemo teach with Nia for Verz bashir Start: 05-14-2024 Depression Screening Depression Screening [facility] Start: 05-14-2024 Fall Risk Screening Fall Risk Screening [facility] Start: 05-14-2024 Medicare Annual Wellness Visit Medicare Annual Wellness Visit [facility] Start: 05-05-2024 End: 05-05-2024 Patient encounter procedure 05/05/2024 3:00 PM EDT Office Visit Endocrinology [address] [facility] [place] [address] Sandy Mcgregor MD, PhD [address] [facility] [place] [address] thyroid nodule, 4mm Endocrinology Comment on above: thyroid nodule, 4mm Start: 04-30-2024 Screening for malignant neoplasm of breast Mammogram Screening [facility] Start: 04-26-2024 Covid-19 Vaccine () Covid-19 Vaccine () [facility] Start: 04-26-2024 Covid-19 Vaccine () Covid-19 Vaccine () [facility] Start: 04-26-2024 Influenza vaccination [facility] Start: 04-21-2024 End: 07-21-2024 25-hydroxyvitamin D3 [Mass/volume] in Serum or Plasma VITAMIN D 25 HYDROXY Lab Routine Invasive lobular carcinoma of breast in female (HCC) Body mass index (BMI) 50.0-59.9, adult (HCC) Expected: 04/21/2024 (Approximate), Expires: 07/21/2024 [facility] Comment on above: Expected: 04/21/2024 (Approximate), Expi res: 07/21/2024 Start: 04-21-2024 End: 07-21-2024 CBC W Auto Differential panel - Blood COMPLETE BLOOD COUNT AND DIFFERENTIAL Lab Routine Invasive lobular carcinoma of breast in female (HCC) Expected: 04/21/2024 (Approximate), Expires: 07/21/[address] [facility] Work Phone: Comment on above: Expected: 04/21/2024 (Approximate), Expi res: 07/21/2024 Start: 04-21-2024 End: 07-21-2024 Comprehensive metabolic 2000 panel - Serum or Plasma COMPREHENSIVE METABOLIC PANEL Lab Routine Invasive lobular carcinoma of breast in female (HCC) Expected: 04/21/2024 (Approximate), Expires: 07/21/2024 [facility] Comment on above: Expected: 04/21/2024 (Approximate), Expi res: 07/21/2024 Start: 04-21-2024 End: 04-21-2024 Patient encounter procedure 04/21/2024 10:00 AM EDT Infusion Center Hematology [address] [place] [address] [facility] Comment on above: [facility] Start: 04-21-2024 End: 04-21-2024 Follow-up encounter 04/21/2024 9:45 AM EDT Visit (SP) Office Hematology [address] [place] [address] Mitch Neri MD [address] [place] [phone] 7 week follow up Hematology Comment on above: 7 week follow up Start: 03-24-2024 End: 03-24-2024 Patient encounter procedure Radiation On cology Comment on above: RPM Lt CW Location: [facility] Start: 03-23-2024 End: 03-23-2024 Patient encounter procedure 03/23/2024 8:45 AM EDT Appointment Radiation Oncology [address] [place] [address] RPM Lt CW Radiation Oncology Comment on above: RPM Lt CW Start: 03-20-2024 End: 03-20-2024 Patient encounter procedure 03/20/2024 8:45 AM EDT Appointment Radiation Oncology [address] [place] [address] RPM Lt CW Radiation Oncology Comment on above: RPM Lt CW Start: 03-19-2024 End: 03-19-2024 Patient encounter procedure 03/19/2024 8:45 AM EDT Appointment Radiation Oncology [address] [place] [address] RPM Lt CW Radiation Oncology Comment on above: RPM Lt CW Start: 03-18-2024 End: 03-18-2024 Patient encounter procedure Radiation On cology Comment on above: RPM Lt CW Location: [facility] Start: 03-17-2024 End: 03-17-2024 Patient encounter procedure Radiation On cology Comment on above: RPM Lt CW Start: 03-16-2024 End: 03-16-2024 Patient encounter procedure 03/16/2024 8:45 AM EDT Appointment Radiation Oncology [address] [place] [address] RPM Lt CW Radiation Oncology Comment on above: RPM Lt CW Start: 03-13-2024 End: 03-13-2024 Patient encounter procedure 03/13/2024 8:45 AM EDT Appointment Radiation Oncology [address] [facility] [place] [address] RPM Lt CW Radiation Oncology Comment on above: RPM Lt CW Start: 03-12-2024 End: 03-12-2024 Patient encounter procedure 03/12/2024 8:45 AM EDT Appointment Radiation Oncology [address] [facility] [place] [address] RPM Lt CW Radiation Oncology Comment on above: RPM Lt CW Start: 03-11-2024 End: 03-11-2024 Patient encounter procedure Radiation On cology Comment on above: RPM Lt CW Location: [facility] Start: 03-10-2024 End: 03-10-2024 Patient encounter procedure 03/10/2024 8:45 AM EDT Appointment Radiation Oncology [address] [facility] [place] [address] RPM Lt CW Radiation Oncology Comment on above: RPM Lt CW Start: 03-09-2024 End: 03-09-2024 Patient encounter procedure 03/09/2024 8:45 AM EDT Appointment Radiation Oncology [address] [place] [address] RPM Lt CW Radiation Oncology Comment on above: RPM Lt CW Start: 03-06-2024 End: 03-06-2024 Patient encounter procedure 03/06/2024 8:45 AM EDT Appointment Radiation Oncology [address] [place] [address] RPM Lt CW Radiation Oncology Comment on above: RPM Lt CW Start: 03-05-2024 End: 03-05-2024 Patient encounter procedure 03/05/2024 8:45 AM EDT Appointment Radiation Oncology [address] [place] [address] RPM Lt CW Radiation Oncology Comment on above: RPM Lt CW Start: 03-04-2024 End: 03-04-2024 Patient encounter procedure 03/04/2024 8:45 AM EDT Appointment Radiation Oncology [address] [place] [address] RPM Lt CW Radiation Oncology Comment on [...] female (HCC) Expected: 03/03/2024 (Approximate), Expires: 06/02/[address] [facility] Work Phone: Comment on above: Expected: 03/03/2024 (Approximate), Expi res: 06/02/2024 Start: 03-03-2024 End: 06-02-2024 Comprehensive metabolic 2000 panel - Serum or Plasma [facility] Comment on above: Expected: 03/03/2024 (Approximate), Expi res: 06/02/2024 Start: 02-20-2024 End: 02-20-2024 Patient encounter procedure Radiation On cology Comment on above: NEW START LEFT BREAST RPM NEW START LEFT RPM B REAST-wants mornings Start: 02-12-2024 End: 02-12-[address] [facility] Imaging Start: 02-07-2024 End: 02-07-2024 Patient encounter procedure 02/07/2024 10:00 AM EDT Office Visit Radiation Oncology [address] [place] [address] Josef Austin MD [address] [place] [address] [place] [address] Dr francesco lott breast cancer Radiation Oncology Comment on above: Dr karamlou dx breast cancer Start: 02-06-2024 End: 02-06-2024 Patient encounter procedure 02/06/2024 3:00 PM EDT Appointment [facility] Oncology - Radiation Oncology [address] [place] [address] [facility] Oncology - Radiation Oncology Start: 01-28-2024 End: 01-27-2025 CT Chest WO and CT angiogram Coronary arteries W contrast IV CT angiogram chest Imaging Routine 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 Expected: 01/28/2024, Expires: 01/27/2025 [facility] Work Phone: Comment on above: Expected: 01/28/2024, Expires: Start: 01-28-2024 End: 01-27-2025 US.doppler Lower extremity vein - bilateral Vas venous duplex lwr bilateral Vascular Ultrasound Routine 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 Other acute pulmonary embolism without acute cor pulmonale (CMS-HCC) Expected: 01/28/2024, Expires: 01/27/2025 [facility] Comment on above: Expected: 01/28/2024, Expires: Start: 01-28-2024 End: 01-28-2024 Patient encounter procedure 01/28/2024 8:15 AM EDT Office Visit [facility] [address] [place] [phone] Sunny Jenkins MD [address] [place] [address] [id number] [facility] Start: 01-21-2024 End: 01-21-2024 Follow-up encounter Hematology/Oncology Comment on above: 1 WEEK FOLLOW UP CHEMOTX TAXOL Start: 01-14-2024 End: 04-14-2024 CBC W Auto Differential panel - Blood [facility] Work Phone: Comment on above: Expected: 01/14/2024 (Approximate), Expi res: 04/14/2024 Expected: 01/14/2024 , Expires: 04/14/2024 Start: 01-14-2024 End: 04-14-2024 Comprehensive metabolic 2000 panel - Serum or Plasma COMPREHENSIVE METABOLIC PANEL Lab Routine Mass of right breast, unspecified quadrant Invasive lobular carcinoma of breast in female (HCC) Other abnormal and inconclusive findings on diagnostic imaging of breast Expected: 01/14/2024, Expires: 04/14/2024 [facility] Comment on above: Expected: 01/14/2024, Expires: Start: 01-14-2024 End: 01-14-2024 Follow-up encounter Hematology/Oncology Comment on above: 1 WEEK FOLLOW UP CHEMOTX TAXOL Start: 01-07-2024 End: 01-07-2024 Follow-up encounter Hematology/Oncology Comment on above: 2 WEEK FOLLOW UP CHEMOTX TAXOL Start: 12-31-2023 End: 12-31-2023 Follow-up encounter 12/31/2023 11:30 AM EDT Infusion Center Hematology/Oncology [address] [place] [address] [place] [address] 2 WEEK FOLLOW UP CHEMOTX TAXOL Hematology/Oncology Comment on above: 2 WEEK FOLLOW UP CHEMOTX TAXOL Start: 12-12-2023 End: 03-12-2024 CBC W Auto Differential panel - Blood COMPLETE BLOOD COUNT AND DIFFERENTIAL Lab Routine Invasive lobular carcinoma of breast in female (HCC) Jessica infection Expected: 12/12/2023, Expires: 03/12/[address] [facility] Work Phone: Comment on above: Expected: 12/12/2023, Expires: 4 Start: 12-12-2023 End: 03-12-2024 Comprehensive metabolic 2000 panel - Serum or Plasma COMPREHENSIVE METABOLIC PANEL Lab Routine Invasive lobular carcinoma of breast in female (HCC) Jessica infection Expected: 12/12/2023, Expires: 03/12/[address] [facility] Work Phone: Comment on above: Expected: 12/12/2023, Expires: 4 Start: 12-10-2023 End: 03-10-2024 CBC W Auto Differential panel - Blood CBC + DIFF Lab Routine Invasive lobular carcinoma of breast in female (HCC) Expected: 12/10/2023, Expires: 03/10/[address] [facility] Work Phone: Comment on above: Expected: 12/10/2023, Expires: Start: 12-10-2023 End: 03-10-2024 Comprehensive metabolic 2000 panel - Serum or Plasma COMP METABOLIC PANEL Lab Routine Invasive lobular carcinoma of breast in female (HCC) Expected: 12/10/2023, Expires: 03/10/[address] [facility] Work Phone: Comment on above: Expected: 12/10/2023, Expires: Start: 12-03-2023 End: 03-03-2024 CBC W Auto Differential panel - Blood CBC + DIFF Lab Routine Invasive lobular carcinoma of breast in female (HCC) Expected: 12/03/2023 (Approximate), Expires: 03/03/[address] [facility] Work Phone: Comment on above: Expected: 12/03/2023 (Approximate), Expi res: 03/03/2024 Start: 12-03-2023 End: 03-03-2024 Comprehensive metabolic 2000 panel - Serum or Plasma COMP METABOLIC PANEL Lab Routine Invasive lobular carcinoma of breast in female (HCC) Expected: 12/03/2023 (Approximate), Expires: 03/03/[address] [facility] Work Phone: Comment on above: Expected: 12/03/2023 (Approximate), Expi res: 03/03/2024 Start: 11-28-2023 End: 11-13-2024 Basic metabolic 2000 panel - Serum or Plasma Basic Metabolic Panel Lab Routine Diuresis Expected: 11/28/2023 (Approximate), Expires: 11/13/2024 [employer] Work Phone: Comment on above: Expected: 11/28/2023 (Approximate), Expi res: 11/13/2024 Start: 11-14-2023 End: 11-14-2023 Patient encounter procedure 11/14/2023 3:00 PM EDT Office Visit [facility] [address] [place] [phone] Leo Gerard, SSIS DEVELOPER-[employer]OVER [address] [place] [address], [facility] [place] [address] [facility] Start: 11-11-2023 End: 02-10-2024 CBC W Auto Differential panel - Blood CBC + DIFF Lab Routine Chest pain, unspecified type Invasive lobular carcinoma of breast in female (HCC) Generalized edema Expected: 11/11/2023, Expires: 02/10/[address] [facility] Work Phone: Comment on above: Expected: 11/11/2023, Expires: Start: 11-11-2023 End: 02-10-2024 Comprehensive metabolic 2000 panel - Serum or Plasma COMP METABOLIC PANEL Lab Routine Chest pain, unspecified type Invasive lobular carcinoma of breast in female (HCC) Generalized edema Expected: 11/11/2023, Expires: 02/10/[address] [facility] Work Phone: Comment on above: Expected: 11/11/2023, Expires: 4 Start: 11-05-2023 End: 02-04-2024 CBC W Auto Differential panel - Blood [facility] Work Phone: Comment on above: Expected: 11/05/2023 (Approximate), Expi res: 02/04/2024 Start: 11-05-2023 End: 02-04-2024 Comprehensive metabolic 2000 panel - Serum or Plasma COMP METABOLIC PANEL Lab Routine Invasive lobular carcinoma of breast in female (HCC) Expected: 11/05/2023 (Approximate), Expires: 02/04/[address] [facility] Work Phone: Comment on above: Expected: 11/05/2023 (Approximate), Expi res: 02/04/2024 Start: 10-08-2023 End: 10-08-2023 Patient encounter procedure 10/08/2023 9:00 AM EST Appointment [facility] [address] [place] [address] Arrived [facility] Comment on above: Arrived Start: 08-26-2023 Advance Directive Discussion Advance Directive Discussion [facility] Start: 08-26-2023 Behavioral Health Screening Behavioral Health Screening [facility] Start: 08-26-2023 Depression Assessment Depression Assessment [facility] Start: 04-26-2023 Covid-19 Vaccine () Covid-19 Vaccine () [facility] Start: 04-26-2023 Influenza vaccination [facility] Start: 02-28-2023 [facility] Start: 02-28-2023 [facility] Start: 02-08-2023 Mammography [facility] Start: 02-08-2023 Screening for malignant neoplasm of breast Mammogram Screening [facility] Start: 02-03-2023 COVID-19 VACCINE (4 - Booster for Romina series) COVID-19 VACCINE (4 - Booster for Romina series) [facility] Start: 08-26-2022 ADVANCE DIRECTIVE DISCUSSION ADVANCE DIRECTIVE DISCUSSION [facility] Start: 08-26-2022 DEPRESSION ASSESSMENT DEPRESSION ASSESSMENT [facility] Start: 04-26-2022 Influenza vaccination [facility] Start: 11-16-2021 COVID-19 VACCINE (3 - Booster for Romina series) COVID-19 VACCINE (3 - Booster for Romina series) [facility] Start: 09-13-2021 COVID-19 VACCINE (3 - Booster for Rmoina series) COVID-19 VACCINE (3 - Booster for Romina series) [facility] Start: 09-12-2021 Mammography MAMMOGRAM [facility] Start: 08-26-2021 ADVANCE DIRECTIVE DISCUSSION ADVANCE DIRECTIVE DISCUSSION [facility] Start: 07-23-2021 Colonoscopy COLONOSCOPY [facility] Start: 07-23-2021 COLORECTAL CANCER SCREENING COLORECTAL CANCER SCREENING [facility] Start: 04-02-2021 DIABETES SCREEN DIABETES SCREEN [facility] Start: 11-04-2019 BONE DENSITY BONE DENSITY [facility] Start: 11-04-2019 Bone Density Screening Bone Density Screening [facility] Start: 11-04-2019 PNEUMOVAX AGE 65 AND OVER WITH 5YR LOOKBACK (#1) PNEUMOVAX AGE 65 AND OVER WITH 5YR LOOKBACK (#1) [facility] Start: 11-04-2019 Screening for osteoporosis Bone Density Screening [facility] Start: 10-25-2019 Medicare Annual Wellness Visit Medicare Annual Wellness Visit [facility] Start: 2014 RSV Vaccine (1 - 1-dose 60+ series) RSV Vaccine (1 - 1-dose 60+ series) [facility] Start: 2014 RSV Vaccine (1 - Risk 60-74 years 1-dose series) RSV Vaccine (1 - Risk 60-74 years 1-dose series) [facility] Start: 01-10-2011 Adult depression screening assessment DEPRESSION SCREENING [facility] Start: 2004 SHINGRIX VACCINE (1 of 2) SHINGRIX VACCINE (1 of 2) [facility] Start: 11-04-1999 COLOGUARD (FIT-DNA) COLOGUARD (FIT-DNA) [facility] Start: 11-04-[address] COLONOGRAPHY [facility] Start: 11-04-1999 FECAL OCCULT BLOOD FECAL OCCULT BLOOD [facility] Start: 11-04-1999 LIPID SCREEN LIPID SCREEN [facility] Start: 11-04-1999 Screening for malignant neoplasm of colon [facility] Start: 11-04-1999 SIGMOIDOSCOPY SIGMOIDOSCOPY [facility] Start: 1994 Mammography MAMMOGRAM [facility] Start: 1994 Screening for malignant neoplasm of breast Mammogram Screening [facility] Start: 1984 Zoledronic acid therapy ALPHA-1 ANTITRYPSIN DEFICIENCY SCREENING [facility] Start: 1973 DTaP,Tdap and Td Vaccines (1 - Tdap) DTaP,Tdap and Td Vaccines (1 - Tdap) [facility] Start: 1973 Urine microalbumin profile [facility] Start: 1972 Adult BMI Follow Up Plan Adult BMI Follow Up Plan [facility] Start: 1972 ANNUAL PCP TEAM CHRONIC DISEASE VISIT ANNUAL PCP TEAM CHRONIC DISEASE VISIT [facility] Start: 1972 Anxiety Screening Anxiety Screening [facility] Start: 1972 BP CONTROLLED (<130/80) BP CONTROLLED (<130/80) [facility] Start: 1972 Depression Screening Depression Screening [facility] Start: 1972 HEPATITIS C SCREENING HEPATITIS C SCREENING [facility] Start: 1972 Hepatitis C screening Hepatitis C Screening [facility] Start: 1972 SPIROMETRY SPIROMETRY [facility] Start: 1965 Screening for malignant neoplasm of cervix Cervical Cancer Screening [facility] Start: 1960 PNEUMOCOCCAL: 65+ (1 - PCV) PNEUMOCOCCAL: 65+ (1 - PCV) [facility] Start: 1954 Statin Use: Cardiovascular St[facility] Use[facility] Bacteria identified in Urine by Culture Urine Culture [facility] Basic metabolic 2000 panel - Serum or Plasma BASIC METABOLIC PANEL Lab Routine Invasive lobular carcinoma of breast in female (HCC) 07/14/2024 3:[address] [facility] Work Phone: End: 04-02-2025 BD DXA TRABECULAR BONE SCORE (TBS) BD DXA TRABECULAR BONE SCORE (TBS) Radiology Routine Encounter for screening for osteoporosis Asymptomatic postmenopausal status 1 Occurrences starting 03/03/2024 until 04/02/2025 [facility] Comment on above: 1 Occurrences starting 03/03/2024 until 04/02/2025 End: 12-23-2024 CBC W Auto Differential panel - Blood COMPLETE BLOOD COUNT AND DIFFERENTIAL Lab Routine Invasive lobular carcinoma of breast in female (HCC) Once per week for 2 Occurrences starting 12/24/2023 until 12/23/[address] [facility] Work Phone: Comment on above: Once per week for 2 Occurrences starting 12/24/2023 until 12/23/2024 CBC W Auto Different ial panel - Blood COMPLETE BLOOD COUNT AND DIFFERENTIAL Lab Routine Invasive lobular carcinoma of breast in female (HCC) 05/05/2024 3:[address] [facility] Work Phone: Chronic hepatitis differentiation between hepatitis B and C virus panel - Serum or Plasma HEP REMOTE PANEL BL Lab Routine Invasive lobular carcinoma of breast in female (HCC) Elevated transaminase level 01/21/2024 1:46 PM EDT [facility] End: 12-23-2024 Comprehensive metabolic 2000 panel - Serum or Plasma COMPREHENSIVE METABOLIC PANEL Lab Routine Invasive lobular carcinoma of breast in female (HCC) Once per week for 2 Occurrences starting 12/24/2023 until 12/23/2024 [facility] Comment on above: Once per week for 2 Occurrences starting 12/24/2023 until 12/23/2024 Comprehensive metabo lic 2000 panel - Serum or Plasma COMPREHENSIVE METABOLIC PANEL Lab Routine Invasive lobular carcinoma of breast in female (HCC) 05/05/2024 3:[address] PM [address] [facility] metabo lic 2000 panel - Serum or Plasma COMPREHENSIVE METABOLIC PANEL Lab Routine Invasive lobular carcinoma of breast in female (HCC) 09/11/2024 9:[address] [facility] Work Phone: End: 12-04-2024 CTA Pulmonary arteries for pulmonary embolus W contrast IV CT CHEST W IVCON PE Radiology STAT Chest pain, unspecified type 1 Occurrences starting 11/05/2023 until 12/04/[address] [facility] Work Phone: Comment on above: 1 Occurrences starting 11/05/2023 until 12/04/2024 CYTOLOGY NON-JEWELRY ESTIMATOR CYTOLOGY NON-GY N Lab Routine Multiple thyroid nodules 07/15/2024 2:[address] [facility] Work Phone: End: 04-02-2025 DXA Skeletal system.axial Views for bone density and vertebral fracture DXA-AXIAL SKELETON WITH VFA Radiology Routine Encounter for screening for osteoporosis Asymptomatic postmenopausal status 1 Occurrences starting 03/03/2024 until 04/02/2025 [facility] Comment on above: 1 Occurrences starting 03/03/2024 until 04/02/2025 End: 07-16-2025 ECG COMPLETE ECG COMPLETE ECG Routine Invasive lobular carcinoma of breast in female (HCC) 1 Occurrences starting 07/16/2024 until 07/16/[address] [facility] Work Phone: Comment on above: 1 Occurrences starting 07/16/2024 until 07/16/2025 ECG COMPLETE ECG COMPLETE ECG Routine Pre-op testing 07/17/2024 9:[address] [facility] Work Phone: ECG COMPLETE ECG COMPLETE ECG 12/24/2024 9:[address] [facility] End: 12-08-2022 Echocardiography ECHO Cardiology Routine AF (paroxysmal atrial fibrillation) (HCC) 1 Occurrences starting 12/08/2021 until 12/08/[address] [facility] Work Phone: Comment on above: 1 Occurrences starting 12/08/2021 until 12/08/2022 End: 09-19-2023 EGD DIAGNOSTIC EGD DIAGNOSTIC Endoscopy Routine Gastroesophageal reflux disease, unspecified whether esophagitis present Hiatal hernia 1 Occurrences starting 09/19/2022 until 09/19/[address] [facility] Work Phone: Comment on above: 1 Occurrences starting 09/19/2022 until 09/19/2023 End: 02-15-2026 EGD DIAGNOSTIC EGD DIAGNOSTIC Endoscopy Routine Hiatal hernia Difficulty breathing 1 Occurrences starting 02/15/2025 until 02/15/[address] [facility] Work Phone: Comment on above: 1 Occurrences starting 02/15/2025 until 02/15/2026 Ferritin [Mass/volum e] in Serum or Plasma FERRITIN Lab Routine Invasive lobular carcinoma of breast in female (HCC) Elevated transaminase level 01/21/2024 1:46 PM EDT [facility] Guidance for percuta neous biopsy.core needle of Thyroid gland IMAGING GUIDED BIOPSY THYROID Radiology Routine Multiple thyroid nodules Ordered: 07/24/[address] [facility] Work Phone: Comment on above: Ordered: 07/24/2024 Hepatitis B virus co re Ab [Presence] in Serum HEPATITIS B CORE ANTIBODY TOTAL Lab Routine Invasive lobular carcinoma of breast in female (HCC) Elevated transaminase level 01/21/2024 1:46 PM EDT [facility] Hepatitis B virus guido rface Ab [Presence] in Serum HEPATITIS B SURFACE ANTIBODY Lab Routine Invasive lobular carcinoma of breast in female (HCC) Elevated transaminase level 01/21/2024 1:46 PM EDT [facility] Hepatitis B virus giudo rface Ag [Presence] in Serum HEPATITIS B SURFACE ANTIGEN Lab Routine Invasive lobular carcinoma of breast in female (HCC) Elevated transaminase level 01/21/2024 1:46 PM EDT [facility] Hepatitis C virus Ab [Presence] in Serum HEPATITIS C ANTIBODY IA WITH CONFIRMATION Lab Routine Invasive lobular carcinoma of breast in female (HCC) Elevated transaminase level 01/21/2024 1:46 PM EDT [facility] IOL BIOMETRY W/ IOL CALC OU (BOTH EYES) IOL BIOMETRY W/ IOL CALC OU (BOTH EYES) OPHT Imaging Routine Combined forms of age-related cataract of both eyes 05/19/2024 2:[address] [facility] Work Phone: Iron and Iron bindin g capacity panel - Serum or Plasma IRON AND TIBC Lab Routine Invasive lobular carcinoma of breast in female (HCC) Elevated transaminase level 01/21/2024 1:[address] [facility] Work Phone: End: 05-16-2026 LUNG DIFFUSION CAPACITY (DLCO) LUNG DIFFUSION CAPACITY (DLCO) PFT Routine Dyspnea and respiratory abnormalities 1 Occurrences starting 04/16/2025 until 05/16/2026 [facility] Comment on above: 1 Occurrences starting 04/16/2025 until 05/16/2026 End: 05-16-2026 LUNG VOLUMES LUNG VOLUMES PFT Routine Dyspnea and respiratory abnormalities 1 Occurrences starting 04/16/2025 until 05/16/[address] [facility] Work Phone: Comment on above: 1 Occurrences starting 04/16/2025 until 05/16/2026 End: 02-12-2025 MG Breast - right Diagnostic for implant TINO DIAGNOSTIC RIGHT Radiology Routine Mass of right breast, unspecified quadrant Invasive lobular carcinoma of breast in female (HCC) Other abnormal and inconclusive findings on diagnostic imaging of breast 1 Occurrences starting 01/14/2024 until 02/12/[address] [facility] Work Phone: Comment on above: 1 Occurrences starting 01/14/2024 until 02/12/2025 Microalbumin/Creatin ine [Mass Ratio] in Urine ALBUMIN/CREATININE RATIO, URINE Lab Routine Stage 3 chronic kidney disease, unspecified whether stage 3a or 3b CKD (HCC) Primary hypertension 02/19/2025 9:01 AM EDT [facility] OUTSIDE VENDOR CARDI AC OUTPATIENT EXTENDED RHYTHM RECORDING (WITHOUT TELEMETRY) OUTSIDE VENDOR CARDIAC OUTPATIENT EXTENDED RHYTHM RECORDING (WITHOUT TELEMETRY) Holter Routine AF (paroxysmal atrial fibrillation) (HCC) Ordered: 12/08/[address] [facility] Work Phone: Comment on above: Ordered: 12/08/2021 Patient Education [facility] Need le Biopsy, Thyroid [facility] Work Phone: Protein/Creatinine [ Mass Ratio] in Urine PROTEIN / CREATININE RATIO Lab Routine Stage 3 chronic kidney disease, unspecified whether stage 3a or 3b CKD (HCC) Primary hypertension 02/19/2025 9:01 AM EDT [facility] End: 09-19-2023 Screening colonoscopy COLONOSCOPY SCREENING Endoscopy Routine Screening for colon cancer 1 Occurrences starting 09/19/2022 until 09/19/[address] [facility] Work Phone: Comment on above: 1 Occurrences starting 09/19/2022 until 09/19/2023 Thyrotropin [Units/v olume] in Serum or Plasma THYROID STIMULATING HORMONE Lab Routine Multiple thyroid nodules 06/01/2024 1:[address] [facility] Work Phone: Tissue Pathology bio psy report [facility] Work Phone: Comment on above: Release Upon Ordering for 1 Occurrences starting 02/23/2025, 1 completed UA DIP, URINE (POC) UA DIP, URIN E (POC) Lab Routine Ordered: 02/18/[address] [facility] Work Phone: Comment on above: Ordered: 02/18/2025 End: 08-15-2024 US AXILLA ONLY LEFT US AXILLA ONLY LEFT Radiology Routine Malignant neoplasm of left female breast, unspecified estrogen receptor status, unspecified site of breast (HCC) 1 Occurrences starting 07/17/2023 until 08/15/[address] [facility] Work Phone: Comment on above: 1 Occurrences starting 07/17/2023 until 08/15/2024 End: 02-12-2025 US Breast - right limited US BREAST LTD RIGHT Radiology Routine Mass of right breast, unspecified quadrant Invasive lobular carcinoma of breast in female (HCC) Other abnormal and inconclusive findings on diagnostic imaging of breast 1 Occurrences starting 01/14/2024 until 02/12/2025 [facility] Comment on above: 1 Occurrences starting 01/14/2024 until 02/12/2025 US HIP-INJECTION LT (POC) KELLY USE ONLY US HIP-INJECTION LT (POC) KELLY USE ONLY Imaging Procedures Routine Primary osteoarthritis of left hip Ordered: 09/06/[address] [facility] Work Phone: Comment on above: Ordered: 09/06/2022 End: 03-21-2026 US Kidney - bilateral and Urinary bladder US KIDNEY/BLADDER Radiology Routine Stage 3 chronic kidney disease, unspecified whether stage 3a or 3b CKD (HCC) 1 Occurrences starting 02/19/2025 until 03/21/2026 [facility] Comment on above: 1 Occurrences starting 02/19/2025 until 03/21/2026 Us soft tissue head & neck real time imge docm US THYROID/PARATHYROID Radiology Routine Thyroid nodule 03/29/2022 4:[address] [facility] Work Phone: End: 06-04-2025 US Thyroid gland US THYROID/PARATHYROID Radiology Routine Multiple thyroid nodules 1 Occurrences starting 05/05/2024 until 06/04/2025 [facility] Comment on above: 1 Occurrences starting 05/05/2024 until 06/04/2025 US Thyroid gland US THYROID/PARA THYROID Radiology Routine Multiple thyroid nodules 06/18/2024 11:[address] [facility] Work Phone: End: 03-17-2026 XR Esophagus Views W contrast PO XR ESOPHAGRAM Radiology Routine Hiatal hernia Difficulty breathing 1 Occurrences starting 02/15/2025 until 03/17/2026 [facility] Comment on above: 1 Occurrences starting 02/15/2025 until 03/17/2026 [facility] Immunizations Immunization Date Immunization Notes Care Provider Lucian bonds 12-09-2022 COVID-19, mRNA, LNP- S, PF, 100mcg/0.5mL Dose [facility] Work Phone: [facility] 04-28-2022 zoster vaccine recombinant [facility] [facility] Work Phone: [facility] 12-31-2021 pneumococcal polysaccharide vaccine, 23 valent [facility] Work Phone: [facility] 02-14-2021 pneumococcal conjuga te vaccine, 13 valent [facility] Work Phone: [facility] 02-14-2021 zoster vaccine recombinant [facility] Work Phone: [facility] 08-04-2016 pneumococcal conjuga te vaccine, 13 valent [facility] Work Phone: [facility] Payers Date Payer Category Payer Self-pay [id number] 2021 Managed Care Other (unspecified) [employer] [facility] [id number] 2021 Private Health Insurance [employer] [facility] [id number] 2021 Unknown [employer] [facility] [place] MEDICARE SUPPLEMENT [id number] 2021-Present [phone] [address] [place] [address] Indemnity [id number] 2021 Unknown [id number] [id number]. [id number] 2021 Unknown [id number] 2019 Medicare MEDICARE MEDICAR E A AND B [id number] 2019-Present [phone] [place] [address] Medicare [id number] 2019 Medicare [id number]. [id number] 1959 Medicare [id number] 2.16.840.1.531939.19 1959 Unknown [id number] 2.16.840.1.253389.19 1954 Unknown [id number] 2.16.840.1.495147.3.579.2. 356 1954 Unknown [id number] 2.16.840.1.491802.3.579.2. 593 1954 Unknown [id number] 2.16.840.1.388936.3.579.2. 593 1954 Unknown [id number] 2.16.840.1.432616.3.579.2. 1286 1954 Unknown [id number] 2.16.840.1.970018.3.579.2. 1286 1954 Unknown [id number] 2.16.840.1.420160.3.579.2. 1286 1954 Unknown [id number] 2.16.840.1.187839.3.579.2. 1286 1954 Unknown [id number] 2.16.840.1.572629.3.579.2. 1286 1954 Unknown [id number] 2.16.840.1.936764.3.579.2. 128 1954 Unknown [id number] 2.16.840.1.654038.3.579.2. 1286 1954 Unknown [id number] 2.16.840.1.033661.3.579.2. 128 1954 Unknown [id number] 2.16.840.1.221868.3.579.2. 1286 1954 Unknown [id number] 2.16.840.1.494855.3.579.2. 1285 1954 Unknown [id number] 2.16.840.1.931766.3.579.2. 1285 1954 Unknown [id number] 2.840.1.872706.3.579.2. 1259 1954 Unknown [id number] 2.840.1.580109.3.579.2. 1285 1954 Unknown [id number] 2.840.1.392163.3.579.2. 1285 1954 Unknown [id number] 2.16.840.1.014446.3.579.2. 1286 Unknown [id number] Unknown [place] BC/BS [id number] Unknown [id number] 2.840.1.068289.3.579.2. 531 Unknown [id number] 2.16840.1.156749.3.579.2. 531 Unknown [id number] 2.840.1.465921.3.579.2. 531 Social History Date Type Detail Facility Tobacco smoking stat us NHIS Unknown if ever smoked [facility] Start: 1955 Sex Assigned At Female F [facility] Start: 04-03-2022 End: 04-02-2023 Tobacco smoking status NHIS Never smoked tobacco [facility] Start: 12-08-2021 End: 04-16-2025 Alcohol intake Current drinker of alcohol (finding) [facility] Start: 03-19-2018 History SDOH Alcohol Comment socially- couple times per year [facility] Start: 1955 Sex Assigned At Not on file C [facility] Start: 11-28-2021 End: 04-03-2022 Exposure to SARS-CoV-2 (event) Not sure [facility] Start: 01-29-2023 End: 07-12-2023 Sex Assigned At [facility] Start: 03-14-2022 History SDOH Financial 5 [facility] Start: 03-14-2022 History SDOH Food Worry 1 [facility] Start: 03-14-2022 History SDOH Transpo rt Med 2 [facility] Start: 04-03-2022 End: 04-02-2023 Tobacco use and exposure Smokeless tobacco non-user [facility] Work Phone: Start: 01-29-2023 End: 07-12-2023 History of Social function [facility] Start: 07-27-2012 How hard is it for y ou to pay for the very basics like food, housing, medical care, and heating Not hard at all [facility] (I/We) worried wheth er (my/our) food would run out before (I/we) got money to buy more. Never true [facility] In the past 12 month s, was there a time when you were not able to pay the mortgage or rent on time? No [facility] Start: 04-02-2023 Alcohol Comment rare [facility] Start: 03-31-2015 End: 11-20-2024 Sex Female (finding) [facility] Start: 08-14-2024 Sexual orientation Heterosexual (may estrella) [facility] Start: 04-05-2025 Alcoholic beverage intake Ex-drinker (finding) [facility] Medical Equipment Procedure Code Equipment Code Equipment Origin al Text Equipment Identifier Dates Cement Simplex P Bone Radiopaque Full Dose - [id number] Start: 03-31-2018 Cement Simplex P Bone Radiopaque Full Dose - [id number] Start: 03-31-2018 Cement Simplex P Bone Radiopaque Full Dose - [id number] Start: 03-31-2018 Stem Triathlon 1 2mm Cocr 50mm Femoral Cemented Total Stabilized Knee - [id number] Start: 03-31-2018 Insert Triathlon 4 X3 9mm Tibial Posterior Stabilize Knee - [id number] Start: 03-31-2018 Component Triath lito 33mm X3 9mm Patellar Symmetric Knee Superior - [id number] Start: 03-31-2018 Insert Triathlon 4 X3 11mm Tibial Bearing Posterior Stabilize Knee - [id number] Start: 03-31-2018 Component Triath lito 33mm X3 9mm Patellar Symmetric Knee Superior - [id number] Start: 03-31-2018 Component Triath lito 4 Femoral Cemented Posterior Stabilize Knee Right - [id number] Start: 03-31-2018 Component Triath lito 4 Femoral Cemented Posterior Stabilize Knee Left - [id number] Start: 03-31-2018 Baseplate Triath lito 4 Naper Cocr Tibial Total Stabilize Cemented Knee - [id number] Start: 03-31-2018 Baseplate Triath lito 4 Naper Cocr Tibial Total Stabilize Cemented Knee - [id number] Start: 03-31-2018 Screw Lcp 6.5mm 8mm Partial Thread Stainless Steel 45mm 32mm Bone Large - [id number] Start: 03-31-2018 Washer Lcp 13mm 6.6mm Stainless Steel Orthopedic 4.5-7.3mm Screw Nonsterile - [id number] Start: 03-31-2018 Screw Lcp 6.5mm 8mm Full Thread Stainless Steel 35mm Bone Large Hexagonal - [id number] Start: 03-31-2018 Cca0t0.165 Rosa on [place] - [id number] Start: 06-02-2024 Cca0t0.130 Rosa on [place] - [id number] Start: 06-17-2024 Goals Date Patient Goal Desired Activity /State Functional Status Date Assessment Result Facility 09-05-2023 Are you deaf, or do you have serious difficulty hearing No 09/05/2023 8:47 AM Cassia Sandoval RN No [facility] 09-05-2023 Are you blind, or do you have serious difficulty seeing, even when wearing glasses No 09/05/2023 8:47 AM Cassia Sandoval RN No [facility] 09-05-2023 Do you have serious difficulty walking or climbing stairs No 09/05/2023 8:47 AM Cassia Sandoval RN No [facility] 09-05-2023 Do you have difficul ty dressing or bathing No 09/05/2023 8:47 AM Cassia Sandoval RN No [facility] 09-05-2023 Because of a physica l, mental, or emotional condition, do you have difficulty doing errands alone such as visiting a physician's office or shopping No 09/05/2023 8:47 AM Cassia Sandoval RN No [facility] Mental Status Date Assessment Result Facility 09-05-2023 Because of a physica l, mental, or emotional condition, do you have serious difficulty concentrating, remembering, or making decisions No 09/05/2023 8:47 AM Cassia Sandoval RN No [facility] Clinical Notes 06-28-2021 to 04-16-2025 Patient Boom Mccain MD - 04/16/2025 8:00 AM Boom Sultana MD - 04/16/2025 8:00 AM EDTPatient Mitch Graham MD - 04/13/2025 2:41 PM EDTPatient Instructions Note Date & Type Note Facility 04-16-2025 Instructions Boom Tim MD - 04/16/2025 8:10 AM EDT Today we discussed your breathing and your breathing test today, we will check a couple more in depth breathing tests and have you come back in 1 month. documented in this encounter [facility] 04-16-2025 History and physical note Images from the original note were not included. . [facility] [place] Note Ms. Caputo is a 69 year old female who presents to the [facility] [place]. Consultation requested by Dr. Gómez aBker for an opinion regarding dyspnea.. My final recommendations/evaluation will be communicated back to the requesting physician by way of shared medical record or letter via [place] mail. HPI: 69 year old female with L Breast Cancer s/p Mastectomy and RT, RA, Scoliosis, Hiatal Hernia, H/O Provoked PE s/p anticoagulation, and GERD that presents for an eval of difficulty breathing . Recording using [employer] software for draft documentation of the visit was discussed with the patient/authorized route sales representative; all questions welcomed and answered. Patient/authorized route sales representative agreed to proceed Minal reports a 15-year history of dyspnea, which has progressively worsened. She experiences dyspnea after taking a few steps and even while talking on the phone. She also reports post-nasal drip and throat clearing due to allergies. She denies wheezing, hemoptysis, or a history of asthma. She has not used inhalers in the past. She also denies any known lung issues during childhood, but notes that she was unable to participate in long-distance running due to scoliosis. She has a history of a PE, which she attributes to chemotherapy. She was on anticoagulation therapy for 3 months and denies any other thromboembolic [...] doing much 2/2 hip pain, previously played volleyball, last 20 years ago Pets: Cat Family [...] reviewed by me Data Reviewed from [facility] (in addition to that noted in HPI, [...] surgery with drain tube present. Assessment: Ms. Caputo is a 69 year old female who presents to the [facility] [place] for evaluation of dyspnea. 1. Dyspnea and respiratory abnormalities (R06.00) 2. Hiatal hernia (K44.9) 3. Other idiopathic scoliosis, unspecified spinal region (M41.20) Chronic, progressively worsening dyspnea over 15 years, with significant functional limitation. Recent spirometry is normal, and CT chest from January 2024 shows no intrinsic lung pathology. Etiology of dyspnea is likely multifactorial, with contributions from severe [...] due to hip pathology. - Follow-up with [facility] after completion of full PFTs to review results and reassess. - Will communicate findings and assessment to Dr. Baker. 4. Class 3 severe obesity with body [...] which included preparing to see the patient, [id number] patient care, completing clinical documentation, obtaining and/or reviewing separately obtained history, performing a medically appropriate examination, counseling and educating the patient/family/caregiver, and ordering medications, tests, or procedures. Boom Tim MD Pulmonary Critical Care Staff [1] Social History Tobacco Use Smoking status: Never Smokeless tobacco: Never Vaping Use Vaping status: Never Used Substance Use Topics Alcohol use: Yes Comment: socially- couple times per year Drug use: Never [facility] 04-16-2025 History and physical note Images from the original note were not included. . [facility] [place] Note Ms. Caputo is a 69 year old female who presents to the [facility] [place]. Consultation requested by Dr. Gómez Baker for an opinion regarding dyspnea.. My final recommendations/evaluation will be communicated back to the requesting physician by way of shared medical record or letter via [place] mail. HPI: 69 year old female with L Breast Cancer s/p Mastectomy and RT, RA, Scoliosis, Hiatal Hernia, H/O Provoked PE s/p anticoagulation, and GERD that presents for an eval of difficulty breathing . Recording using [employer] software for draft documentation of the visit was discussed with the patient/authorized route sales representative; all questions welcomed and answered. Patient/authorized route sales representative agreed to proceed Minal reports a 15-year history of dyspnea, which has progressively worsened. She experiences dyspnea after taking a few steps and even while talking on the phone. She also reports post-nasal drip and throat clearing due to allergies. She denies wheezing, hemoptysis, or a history of asthma. She has not used inhalers in the past. She also denies any known lung issues during childhood, but notes that she was unable to participate in long-distance running due to scoliosis. She has a history of a PE, which she attributes to chemotherapy. She was on anticoagulation therapy for 3 months and denies any other thromboembolic [...] doing much 2/2 hip pain, previously played volleyball, last 20 years ago Pets: Cat Family [...] reviewed by me Data Reviewed from [facility] (in addition to that noted in HPI, [...] surgery with drain tube present. Assessment: Ms. Caputo is a 69 year old female who presents to the [facility] [place] for evaluation of dyspnea. 1. Dyspnea and respiratory abnormalities (R06.00) 2. Hiatal hernia (K44.9) 3. Other idiopathic scoliosis, unspecified spinal region (M41.20) Chronic, progressively worsening dyspnea over 15 years, with significant functional limitation. Recent spirometry is normal, and CT chest from January 2024 shows no intrinsic lung pathology. Etiology of dyspnea is likely multifactorial, with contributions from severe [...] due to hip pathology. - Follow-up with [facility] ATTENDANT after completion of full PFTs to review results and reassess. - Will communicate findings and assessment to Dr. Baker. 4. Class 3 severe obesity with body [...] which included preparing to see the patient, [id number] patient care, completing clinical documentation, obtaining and/or reviewing separately obtained history, performing a medically appropriate examination, counseling and educating the patient/family/caregiver, and ordering medications, tests, or procedures. Boom Tim MD Pulmonary Critical Care Staff [1] Social History Tobacco Use Smoking status: Never Smokeless tobacco: Never Vaping Use Vaping status: Never Used Substance Use Topics Alcohol use: Yes Comment: socially- couple times per year Drug use: Never documented in this encounter [facility] 04-13-2025 Instructions Cinthia Tim LPN - 04/13/2025 3:19 PM EDT Schedule labs prior to Virtual visit with DR Neri 2 months Schedule proliainjection in francine next day documented in this encounter [facility] 04-13-2025 Note [facility] 04-13-2025 History of Presen t illness Narrative PATIENT NAME: Minal Caputo CLINIC NO.: [id number] ATTENDING PHYSICIAN: Mitch Neri MD DATE OF SERVICE: April 13, 2025 Some of the elements of this note have been copied from my previous progress note dated 12/30/2024. All the information has been reviewed carefully. Dear Dr. Mendoza Yang here is an update on a follow up visit on female Minal Caputo at the clinic April 13, 2025 Diagnosis: L Breast Cancer: pT3,N3,M0, Grade 2 ILC, 6.3 cm, LVI present, Margins Negative, ER 80%, MT 5% and Her-2 IHC-0 Germline testing 07/2023: [...] resolution of arthralgia from the Arimidex. HPI: Minal Caputo is a 68 year [...] grade 1 invasive lobular carcinoma ER 80%, MT 5% and HER2/akash with IHC 0. A [...] elected to transfer her care to the [facility] and underwent a L breast mastectomy [...] rashes. Denies any bony pain. She has been off her MTX and wondering if she needs [...] Range Status 03/30/2025 4.9 % Final Abs Monroe Date Value Ref Range Status 03/30/2025 0.18 [...] Histologic Type Invasive lobular carcinoma Histologic Grade ([place] Histologic Score) Glandular (Acinar) / Tubular Differentiation [...] Examined (sentinel and non-sentinel) 4 Number of Randolph Nodes Examined 4 pTNM CLASSIFICATION (AJCC 8th [...] invasive lobular carcinoma, grade 2, ER 80%, MT 5% and HER2/akash negative, IHC 0, cancer [...] symptoms almost nearly resolved and after lengthy discussion she started letrozole August 2024, tolerating well thus [...] do not hesitate to contact me at [phone]. Mitch Neri MD Hematology/Medical Oncology [facility] spent a total of 30 minutes on the date of the service which included preparing to see the patient, [id number] patient care, completing clinical documentation, obtaining and/or reviewing separately obtained history, performing a medically appropriate examination, and counseling and educating the patient/family/caregiver. CC: Sunny Jenkins MD documented in this encounter [facility] 04-12-2025 History of Presen t illness Narrative [facility] Refill Assessment Medication(s): Kisqali Patient's current medication list and adherence status [...] progressing towards achieving therapeutic goals based on medication-specific laboratory parameters, disease state markers and outcomes. Office/provider notes have been reviewed prior to dispensing the medication. Industrial Analyst Assessment Patient confirmed: Yes Med/dose confirmed: Yes Supplies needed: No supplies needed Missed doses: No Estimated days supply on hand: 0 Next cycle/dose due: 04/19/25 Copay amount: 0 Delivery method: FedEx Signature required: Waived on patient request Delivery address: [address] [place] [address] Delivery date: 04/15/25 Questions or concerns for [...] facility-administered medications on file prior to visit. [facility] [place] CLINICAL ASSESSMENT - HEMATOLOGY ONCOLOGY V6: Assessment to use: Refill Date of influenza vaccination reminder: 08/28/2024 Date of most recent vaccination assessment: 08/28/2024 Treatment Plan Information: Diagnosis: T3, N3, M0, invasive lobular carcinoma, grade 2, ER 80%, MT 5% and HER2/akash negative, IHC 0 Previous treatment(s): - L breast mastectomy - DDAC (2 cycles c/b neutropenic fever) - Taxol (2 weeks c/b infection and diverticulitis) - RT (03/03/24-03/24/24) - Verzenio (04/2024 - 05/2024 d/t diarrhea) - Arimidex (04/2024 - current) Treatment Plan: Ribociclib + Anastrozole Medication: Dalia (ribociclib) Sig: Take 2 tablets (400 mg) [...] available Estimated Start Date Info: Per Dr. Neri's discretion Est. Estimated Treatment Duration: 3 years Citlali Negrete documented in this encounter [facility] 04-12-2025 Note [facility] 04-12-2025 Miscellaneous Notes Patient was seen on 04/05/2025 for sinusitis and stated she finished antibiotic and would like another antibiotic due still not feeling better. Please advise. Prescription for cefdinir 300 mg 1 capsule twice daily for 7 days additionally sent into pharmacy to continue to take medication to help with symptoms. Please let patient know. Thank you Spoke with patient, she verbalized understanding documented in this encounter [facility] 04-12-2025 Telephone encounter Note Patient was seen on 04/05/2025 for sinusitis and stated she finished antibiotic and would like another antibiotic due still not feeling better. Please advise. [facility] 04-12-2025 Telephone encounter Note Prescription for cefdinir 300 mg 1 capsule twice daily for 7 days additionally sent into pharmacy to continue to take medication to help with symptoms. Please let patient know. Thank you [facility] 04-12-2025 Telephone encounter Note Spoke with patient, she verbalized understanding [facility] 04-05-2025 History of Presen t illness Narrative Images from the original note were not included. [facility] [address] [place] [address] Patient: Minal Caputo Date of : 1955 Encounter Date: 04/05/2025 Subjective: Chief Complaint Chief Complaint Patient presents with sinus infection History of Present Illness Minal Caputo is a 69 y.o. female, Established patient, that presents to the office for sinus symptoms. History provided by patient. Sinusitis This is a new problem. Episode onset: 1-2 weeks ago with worsening symptom. Cough so severe that she was not able to have EDG Saturday. Maximum temperature: Odell low grade fever. Associated symptoms include congestion, coughing (Primarily dry cough with rare episodes of cleat milky drainage), sinus pressure, a sore throat and swollen glands. Pertinent [...] BP Postition: Sitting) Pulse 66 Temp 36.9 C (98.4 F) (Oral) Wt 120.5 kg (265 lb 9.6 oz) SpO2 96% BMI 48.58 kg/m Physical Exam Physical Exam Vitals reviewed. Constitutional: [...] tenderness or frontal sinus tenderness. Mouth/Throat: Lips: [place]. No lesions. Comments: Due to positioning and [...] Date Allergic Arthritis Back pain Breast cancer ([facility]) 06/26/2023 Cataract COPD (chronic obstructive pulmonary disease) ([facility]) GERD (gastroesophageal reflux disease) Heart murmur History of blood clots HTN (hypertension) Hyperlipidemia Kidney stones Obesity Pneumonia Primary invasive malignant neoplasm of female breast, left ([facility]) 06/28/2023 Recurrent UTI Rheumatoid arthritis ([facility]) Scoliosis Shingles Varicella Visual impairment glasses Past [...] 6 (six) hours as needed for pain. atorvastatin [...] 1 TABLET (10 MEQ TOTAL) BEFORE BEDTIME. Lactobacillus acidophilus 500 million [...] Joshua Son MD on 02/15/2024 8:48 PM Assessment/Plan: 1. [...] antibiotic Cefdinir 300 mg 1 capsule twice daily for 7 days. Discussed with patient management for recurrent sinusitis which could include referral to ENT for further evaluation or referral to bundle wrapper to see if certain allergens causing recurrent symptoms Due to history of recurrent vaginal candidiasis prescribed fluconazole 150 mg 1 tablet every 3 days x2 doses to take at the end of antibiotics course. Apply nystatin cream topically to area of skin irritation twice daily until resolved Follow-up: For acute sinusitis follow-up as needed. Keep June 22, 2025 appointment - Rakesh Lamb DO 04/05/25 1:42 PM documented in this encounter [facility] 04-05-2025 Instructions Rakesh Lamb DO - 04/05/2025 1:00 PM EDT Symptoms consistent with acute sinusitis. Start on antibiotic Cefdinir 300 mg 1 capsule twice daily for 7 days. documented in this encounter [facility] 04-05-2025 Note [facility] 04-05-2025 History of Presen t illness Narrative Pt came in for Activase, however port gave great blood return immediately and flushed with ease. No need for activase at this time. Halina Hunter RN documented in this encounter [facility] 04-01-2025 Note HNO ID: [id number] Author: HANSA FRANZ RDMS, RVT Service: Radiology Author Type: Station Installation Supervisor Type: Progress Notes Filed: 04/01/2025 09:24 Note Text: Radiology Service Progress Note PATIENT NAME: Minal Caputo DATE OF SERVICE: April 01, 2025 TIME: 9:24 AM PATIENT IDENTITY VERIFICATION COMPLETED USING TWO [...] place to prevent falls during this visit? Instructed Patient to Call for Help if Needed, Offered Assistance with Transfers/Clothing, Instructed Patient to Remain Seated (Not on Exam Table) Until Exam, and Increased Observations by Caregivers PATIENT GENDER DATA: Assigned female at . status: : No status: N/A PATIENT RELEVANT IMPLANT DATA REVIEWED: Not Applicable PATIENT PRESENTS WITH AN IMPLANTABLE OR ATTACHED MERCERIZER MACHINE OPERATOR: No RADIOLOGY DEPARTMENT: Ultrasound PERIPHERAL IV DATA: Not applicable SIGNED BY: Hansa Franz RDMS, RVEstee April 01, 2025 9:24 AM [facility] 03-26-2025 Telephone encounter Note Called and spoke with Ashkan to have fitting-was evaluated by plastic surgery 03/05/25. She will fax orders to Dr Neri's office. [facility] 03-26-2025 Miscellaneous Notes Called and spoke with Ashkan to have fitting-was evaluated by plastic surgery 03/05/25. She will fax orders to Dr Neri's office. Adelaide from [facility] [place] calling Patient is there now for a fitting Will need permission to fit her today so she can go home with her items She came without a prescription Will also fax form to office now Please call Adelaide GONSALEZ so they can do the fitting now Adelaide can be reached at: [phone], ok to leave a message documented in this encounter [facility] 03-26-2025 Telephone encounter Note Adelaide from [facility], [facility] [place] calling Patient is there now for a fitting Will need permission to fit her today so she can go home with her items She came without a prescription Will also fax form to office now Please call Adelaide GONSALEZ so they can do the fitting now Adelaide can be reached at: [phone], ok to leave a message [facility] 03-19-2025 Instructions Hellen Matias APRN.MOBILE HEAVY EQUIPMENT OPERATOR - 03/19/2025 10:43 AM EDT PATIENT PREOPERATIVE INSTRUCTIONS Rita Barbosa DO has scheduled you for your procedure at this surgery center: [facility]: [phone] --[id number] [place] [address]. Please enter through the entrance closest to [facility]. Please read below carefully for your personalized instructions. Dietary Restrictions: - No solid food after midnight. Follow surgeon instructions regarding fluids day before procedure and after midnight Medications: Unless instructed differently below, stay on all of your medications until your surgery. If you start any new medications after today's visit, please contact your surgeon. Medications you will take the morning of surgery with a small sip of water LIPITOR,ESOMEPRAZOLE,LOSARTAN,ME TOPROLOL Is Patient Diabetic:No If you are currently using a gtsq-lvi-lfob injectable or oral medication for diabetes or weight loss such as Dulaglutide (Trulicity), Exenatide (Byetta, Bydureon), Liraglutide (Victoza, Saxenda), Semaglutide (Ozempic, Wegovy, Rybelsus), or Tirzepatide (Mounjaro), the medicine should be stopped at least 7 days before surgery. These medicines can cause food to remain in your stomach for a very long time and increase the risks from surgery and anesthesia. Not stopping the medication for a long enough time may result in your surgery being rescheduled. Blood Thinning Medications: - Stop NSAIDS (Ibuprofen, Advil, Aleve, Motrin, Celebrex, Mobic, etc.) 7 days before surgery, as directed by your surgeon. - Stop Aspirin 7 days before surgery, as directed by your surgeon. - Stop , ALL herbals and dietary supplements 7 days before surgery. - You may take Tylenol (Acetaminophen) or any of your pain medications that do not contain aspirin or NSAIDS as needed. Important Reminders: - If you use CPAP/BIPAP, bring the machine with you to the surgery center. - If you are prescribed inhalers for breathing, continue using them. If you are on dialysis, please check with your dialysis center or tobacco dipper to see if any adjustments need to be made to your schedule for the week of your surgery - Candy, mints, and tobacco products are [...] Procedures: - YOU MUST HAVE A RESPONSIBLE LITHOGRAPHIC CAMERA OPERATOR TAKE YOU HOME. A FRAME FEEDER OR DIRECTOR WATER AND WASTE SERVICES CANNOT BE MADE A RESPONSIBLE LITHOGRAPHIC CAMERA OPERATOR. - We recommend that a responsible person [...] Advance Directive, please fax a copy to [phone] or email to for it to be [...] and scanned into your chart that day. Hellen Matias APRN.CHELSY documented in this encounter [facility] 03-19-2025 History and physical note PREANESTHESIA CONSULT CLINIC TELEHEALTH VISIT Patient has been identified by name and date of : Yes This is a virtual visit using Vizimaxom Video Visit. It require patient-provider interaction for the medical decision making as documented below. Reason for contact: [facility] visit Accompanied by: Self This is a virtual visit using Virtual Visit (Audio/Visual) I have discussed the nature of this visit with the patient which will occur via Distance Health (Phone, Virtual Visit) and she agrees to proceed with this interaction . It required patient-provider interaction for the medical decision making as documented below. I have communicated my name and active licensure. The patient's identity and physical location were verified at the time of this visit. Either the patient or their legal route sales representative has been informed of the risks and benefits of and alternatives to treatment through a remote evaluation and consents to proceed with the evaluation remotely. Scheduled Surgery: Diagnostic EGD with Dr. Rita Barbosa Subjective CHIEF COMPLAINT: No chief complaint on file. Patient stated I have hiatal hernia and will have EGD to check status HPI: This is a 69 year old female who presents with stating she has hiatal hernia and has epigastric pain. On pain scale, 5/10 aching pain. SHe has difficulty breathing at times.Consulted Dr. Barbosa After exam,Dx with Hiatal Hernia:Difficulty breathing . 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 Discard after 60 days from fill date. letrozole (FEMARA) 2.5 mg tablet TAKE 1 TABLET BY MOUTH EVERY DAY NAPROXEN ORAL Take by mouth two times a day. (Patient taking differently: Take by mouth as needed.) cholecalciferol (VITAMIN D-3) 5,000 unit tab Take 5,000 Units by mouth once daily. spironolactone (ALDACTONE) 25 mg tablet Take 1 tablet by mouth every afternoon. atorvastatin (LIPITOR) 20 mg tablet Take 1 tablet by mouth once daily. losartan (COZAAR) 50 mg tablet Take 50 mg by mouth once daily. esomeprazole magnesium (NEXIUM ORAL) Take 20 mg by mouth once daily. (Patient taking differently: Take 20 mg by mouth as needed.) furosemide (LASIX) 20 mg tablet Take 20 mg by mouth once daily. MULTIVITAMIN ORAL Take 1 Dose by mouth once daily. potassium chloride (K-TAB) 10 mEq tablet Take 10 mEq by mouth once daily. METOPROLOL 100 MG TAB Take 50 mg by mouth two times a day. No current facility-administered medications for this visit. COVID VACCINATION STATUS: Fully vaccinated REVIEW OF SYSTEMS: Pain Assessment: General: No weight loss, malaise or fevers. and BMI 48.8 Neuro: No history of TIA's, stroke, MOBILE HEAVY EQUIPMENT OPERATOR tumor, impaired sensorium, hemiplegia, paraplegia or quadraplegia. No neurological symptoms or problems. Respiratory: COPD does not use Inhalers Cardiovascular: Positive for: DVT/PE, HLD, Hypertension, H/O A-Fib in the past H/O Palpitations in the past PE in 2023 GI: Positive for GERD takes Nexium H/O Diverticulitis : No history of dysuria, frequency or incontinence,, stones or chronic kidney disease, CKD JEWELRY ESTIMATOR: Negative for abnormal vaginal bleeding, abnormal vaginal discharge., N/A : N/A, Patient's last menstrual period was 08/26/2006 (approximate). Endocrine: No history of diabetes. Has not taken [...] months. No history of oncological symptoms or problems., H?O Left Mastectomy Psych: No history of psychiatric symptoms or problems. Musculoskeletal: Joint pain and Rheumatoid Arthritis; left hip pain Skin: Negative for lesions, rash and itching. Objective PHYSICAL EXAM: Resp 16 Ht 5' 2 (1.58m) Wt 267 lb (121.1kg) LMP 08/26/2006 BMI 48.82 kg/(m^2). Patient unable to assess pulse with examiner Weight as of 02/19/25 VIDEO EXAM: (if completed, performed via video enabled technology) GENERAL: alert and appropriate, in no distress, well-hydrated, well nourished, and happy, smiling, interactive SKIN: no rash noted HEAD: normocephalic, no abnormality or lesion noted EYES: no injection EARS: hearing grossly normal NOSE: external nose normal without rhinorrhea OROPHARYNX: moist mucus membranes NECK: no self-reported cervical adenopathy RESPIRATORY: breathing non-labored, no grunting/flaring/retractions, and resp rate 16 CHEST: equal chest rise with normal respiratory effort HEART: Patient unable to assess pulse with examiner ABDOMEN: soft and non-tender to self-palpation BACK: range of motion normal EXTREMITIES: no visible lower extremity edema NEUROLOGIC: no facial droop, speech is clear and fluent and no obvious deficit Diagnostic tests reviewed for today's visit: Lab Value Units Date High Low HB 11.4 g/dL 12/24/2024 15.5 11.5 HCT 33.5 % 12/24/2024 46.0 36.0 WBC 2.31 k/uL 12/24/2024 11.00 3.70 PLT 304 k/uL 12/24/2024 400 150 NA 142 mmol/L 12/24/2024 144 136 K 4.3 mmol/L 12/24/2024 5.1 3.7 GLUC 181 mg/dL 12/24/2024 99 74 BUN 18 mg/dL 12/24/2024 21 7 CREAT 1.25 mg/dL 12/24/2024 0.96 0.58 PTSEC No results within date range. INR No results within date range. APTT No results within date range. ALT 16 U/L 12/24/2024 38 7 AST 18 U/L 12/24/2024 35 13 TBILI 0.5 mg/dL 12/24/2024 1.3 0.2 TSH No results within date range. Lab Value Units Date High Low HCGQT No results within date range. UHCG No results within date range. HCG, BODY* No results within date range. Lab Value Units Date High Low ABORHD No results within date range. ABSCREEN No results within date range. Hemoglobin A1C (%) Date Value 03/14/2022 6.3 Most recent labs Most recent EKG: in [facility] of 12/24/24 Procedure Date : Dec 24 2024 09:05:05 Edit Date : Dec 24 2024 09:10:11 Diagnosis: SUSPECT ARM LEAD REVERSAL, PLEASE REPEAT SINUS RHYTHM WITH 1ST DEGREE AV BLOCK LATERAL MYOCARDIAL INFARCTION , AGE UNDETERMINED ABNORMAL ECG Impression/Recommendations ASSESSMENT: COPD (chronic obstructive pulmonary disease) ([facility]) Assessment: states was told by machine fitter that she had ANIMAL ASSISTED THERAPIST but another told her she did not have it Does not use use inhaler Currently stable Disorder of mitral valve Assessment: trace mitral regurgitation per 08/2023 ECHO (+) systolic cardiac murmur GERD (gastroesophageal reflux disease) Assessment: trace mitral regurgitation per 08/2023 ECHO (+) systolic cardiac murmur Mixed hyperlipidemia Assessment: takes Lipitor,stable Morbid obesity ([facility]) Assessment: BMI 48.8 Palpitations Assessment: evaluated for possible atrial fibrillation on metoprolol Follows with Dr. John Dc ( Cardiology,) currently stable Primary hypertension Assessment: takes Metoprolol,Losartan last BP in [facility] of 02/23/25 156/70 Pulmonary embolism ([facility]) Assessment: PE 11/05/2023 was on Eliquis for 3 months RA (rheumatoid arthritis) ([facility]) Assessment: Follows with Dr. Celia Lewis Stage 3a chronic kidney disease ([facility]) Assessment: BUN Date Value Ref Range Status 12/24/2024 18 7 - 21 mg/dL Final Currently stable METS: Walk indoors, such as around the house (1.75 METs) Do light work around the house, such as dusting or washing dishes (2.70 METs) Take care of self; that is eating, dressing, bathing, using the toilet (2.75 METs) Walk a block or two on level ground (2.75 METs) Do moderate work around the house such as vacuuming, sweeping floors, or carrying in groceries (3.50 METs) Do yardwork, such as raking leaves, weeding,or pushing a power mower (4.50 METs) Climb a flight of stairs or walk up a hill (5.50 METs) Participate in moderate recreational activities, such as golf, bowling, dancing, doubles tennis, or throwing a baseball or football (6.00 METs) ASA Class: 3 ANESTHESIA FINDINGS: Intubation History: No history of difficult intubation Significant Anesthesia Considerations: None Airway Exam: General: Normal appearance and BMI 48.8 Mallampati Score is CLASS III ULBT: Class I - Lower incisors can bite the upper lip above the case line Neck: Normal appearance and function, Distance from hyoid to mentum during neck extension is at least 3 finger breaths, Short neck, thick neck Mouth: Normal tongue size Dentition: Intact Airway History: No abnormal airway history STOP BANG Score: Criteria: Hypertension BMI > 35 Age over 50 (69 year old) Neck circumference > 15.75 inches Score = 4 PLAN: This patient is optimally prepared for surgery. CONSULTS: Patient does not require consults for optimization at this time. The Following Tests/Procedures Have Been Initiated: Labs not indicated per [facility] protocol, EKG not indicated per [facility] protocol Planned Anesthetic: Per anesthesia choice Instructions Given to Patient: Patient given verbal instructions and voices comprehension and compliance. Copy sent electronically via My Chart, email, or mobile device. I spent a total of 30 minutes on the date of the service which included preparing to see the patient and [id number] patient care This is a virtual visit. It required patient-provider interaction for the medical decision making as documented above. SIGNATURE: Hellen Matias APRN.CNS PATIENT NAME: Minal Caputo DATE: 03/19/25 TIME: 10:42 AM PAGER/CONTACT #: [facility] 03-19-2025 History and physical note PREANESTHESIA CONSULT CLINIC TELEHEALTH VISIT Patient has been identified by name and date of : Yes This is a virtual visit using Vizimaxom Video Visit. It require patient-provider interaction for the medical decision making as documented below. Reason for contact: PACC visit Accompanied by: Self This is a virtual visit using Virtual Visit (Audio/Visual) I have discussed the nature of this visit with the patient which will occur via Distance Health (Phone, Virtual Visit) and she agrees to proceed with this interaction . It required patient-provider interaction for the medical decision making as documented below. I have communicated my name and active licensure. The patient's identity and physical location were verified at the time of this visit. Either the patient or their legal route sales representative has been informed of the risks and benefits of and alternatives to treatment through a remote evaluation and consents to proceed with the evaluation remotely. Scheduled Surgery: Diagnostic EGD with Dr. Rita Barbosa Subjective CHIEF COMPLAINT: No chief complaint on file. Patient stated I have hiatal hernia and will have EGD to check status HPI: This is a 69 year old female who presents with stating she has hiatal hernia and has epigastric pain. On pain scale, 5/10 aching pain. SHe has difficulty breathing at times.Consulted Dr. Barbosa After exam,Dx with Hiatal Hernia:Difficulty breathing . 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 Discard after 60 days from fill date. letrozole (FEMARA) 2.5 mg tablet TAKE 1 TABLET BY MOUTH EVERY DAY NAPROXEN ORAL Take by mouth two times a day. (Patient taking differently: Take by mouth as needed.) cholecalciferol (VITAMIN D-3) 5,000 unit tab Take 5,000 Units by mouth once daily. spironolactone (ALDACTONE) 25 mg tablet Take 1 tablet by mouth every afternoon. atorvastatin (LIPITOR) 20 mg tablet Take 1 tablet by mouth once daily. losartan (COZAAR) 50 mg tablet Take 50 mg by mouth once daily. esomeprazole magnesium (NEXIUM ORAL) Take 20 mg by mouth once daily. (Patient taking differently: Take 20 mg by mouth as needed.) furosemide (LASIX) 20 mg tablet Take 20 mg by mouth once daily. MULTIVITAMIN ORAL Take 1 Dose by mouth once daily. potassium chloride (K-TAB) 10 mEq tablet Take 10 mEq by mouth once daily. METOPROLOL 100 MG TAB Take 50 mg by mouth two times a day. No current facility-administered medications for this visit. COVID VACCINATION STATUS: Fully vaccinated REVIEW OF SYSTEMS: Pain Assessment: General: No weight loss, malaise or fevers. and BMI 48.8 Neuro: No history of TIA's, stroke, MOBILE HEAVY EQUIPMENT OPERATOR tumor, impaired sensorium, hemiplegia, paraplegia or quadraplegia. No neurological symptoms or problems. Respiratory: COPD does not use Inhalers Cardiovascular: Positive for: DVT/PE, HLD, Hypertension, H/O A-Fib in the past H/O Palpitations in the past PE in 2023 GI: Positive for GERD takes Nexium H/O Diverticulitis : No history of dysuria, frequency or incontinence,, stones or chronic kidney disease, CKD JEWELRY ESTIMATOR: Negative for abnormal vaginal bleeding, abnormal vaginal discharge., N/A : N/A, Patient's last menstrual period was 08/26/2006 (approximate). Endocrine: No history of diabetes. Has not taken [...] months. No history of oncological symptoms or problems., H?O Left Mastectomy Psych: No history of psychiatric symptoms or problems. Musculoskeletal: Joint pain and Rheumatoid Arthritis; left hip pain Skin: Negative for lesions, rash and itching. Objective PHYSICAL EXAM: Resp 16 Ht 5' 2 (1.58m) Wt 267 lb (121.1kg) LMP 08/26/2006 BMI 48.82 kg/(m^2). Patient unable to assess pulse with examiner Weight as of 02/19/25 VIDEO EXAM: (if completed, performed via video enabled technology) GENERAL: alert and appropriate, in no distress, well-hydrated, well nourished, and happy, smiling, interactive SKIN: no rash noted HEAD: normocephalic, no abnormality or lesion noted EYES: no injection EARS: hearing grossly normal NOSE: external nose normal without rhinorrhea OROPHARYNX: moist mucus membranes NECK: no self-reported cervical adenopathy RESPIRATORY: breathing non-labored, no grunting/flaring/retractions, and resp rate 16 CHEST: equal chest rise with normal respiratory effort HEART: Patient unable to assess pulse with examiner ABDOMEN: soft and non-tender to self-palpation BACK: range of motion normal EXTREMITIES: no visible lower extremity edema NEUROLOGIC: no facial droop, speech is clear and fluent and no obvious deficit Diagnostic tests reviewed for today's visit: Lab Value Units Date High Low HB 11.4 g/dL 12/24/2024 15.5 11.5 HCT 33.5 % 12/24/2024 46.0 36.0 WBC 2.31 k/uL 12/24/2024 11.00 3.70 PLT 304 k/uL 12/24/2024 400 150 NA 142 mmol/L 12/24/2024 144 136 K 4.3 mmol/L 12/24/2024 5.1 3.7 GLUC 181 mg/dL 12/24/2024 99 74 BUN 18 mg/dL 12/24/2024 21 7 CREAT 1.25 mg/dL 12/24/2024 0.96 0.58 PTSEC No results within date range. INR No results within date range. APTT No results within date range. ALT 16 U/L 12/24/2024 38 7 AST 18 U/L 12/24/2024 35 13 TBILI 0.5 mg/dL 12/24/2024 1.3 0.2 TSH No results within date range. Lab Value Units Date High Low HCGQT No results within date range. UHCG No results within date range. HCG, BODY* No results within date range. Lab Value Units Date High Low ABORHD No results within date range. ABSCREEN No results within date range. Hemoglobin A1C (%) Date Value 03/14/2022 6.3 Most recent labs Most recent EKG: in [facility] of 12/24/24 Procedure Date : Dec 24 2024 09:05:05 Edit Date : Dec 24 2024 09:10:11 Diagnosis: SUSPECT ARM LEAD REVERSAL, PLEASE REPEAT SINUS RHYTHM WITH 1ST DEGREE AV BLOCK LATERAL MYOCARDIAL INFARCTION , AGE UNDETERMINED ABNORMAL ECG Impression/Recommendations ASSESSMENT: COPD (chronic obstructive pulmonary disease) (HCC) Assessment: states was told by machine fitter that she had ANIMAL ASSISTED THERAPIST but another told her she did not have it Does not use use inhaler Currently stable Disorder of mitral valve Assessment: trace mitral regurgitation per 08/2023 ECHO (+) systolic cardiac murmur GERD (gastroesophageal reflux disease) Assessment: trace mitral regurgitation per 08/2023 ECHO (+) systolic cardiac murmur Mixed hyperlipidemia Assessment: takes Lipitor,stable Morbid obesity (HCC) Assessment: BMI 48.8 Palpitations Assessment: evaluated for possible atrial fibrillation on metoprolol Follows with Dr. John cD ( Cardiology,) currently stable Primary hypertension Assessment: takes Metoprolol,Losartan last BP in [facility] of 02/23/25 156/70 Pulmonary embolism (HCC) Assessment: PE 11/05/2023 was on Eliquis for 3 months RA (rheumatoid arthritis) (HCC) Assessment: Follows with Dr. Celia Lewis Stage 3a chronic kidney disease (HCC) Assessment: BUN Date Value Ref Range Status 12/24/2024 18 7 - 21 mg/dL Final Currently stable METS: Walk indoors, such as around the house (1.75 METs) Do light work around the house, such as dusting or washing dishes (2.70 METs) Take care of self; that is eating, dressing, bathing, using the toilet (2.75 METs) Walk a block or two on level ground (2.75 METs) Do moderate work around the house such as vacuuming, sweeping floors, or carrying in groceries (3.50 METs) Do yardwork, such as raking leaves, weeding,or pushing a power mower (4.50 METs) Climb a flight of stairs or walk up a hill (5.50 METs) Participate in moderate recreational activities, such as golf, bowling, dancing, doubles tennis, or throwing a baseball or football (6.00 METs) ASA Class: 3 ANESTHESIA FINDINGS: Intubation History: No history of difficult intubation Significant Anesthesia Considerations: None Airway Exam: General: Normal appearance and BMI 48.8 Mallampati Score is CLASS III ULBT: Class I - Lower incisors can bite the upper lip above the case line Neck: Normal appearance and function, Distance from hyoid to mentum during neck extension is at least 3 finger breaths, Short neck, thick neck Mouth: Normal tongue size Dentition: Intact Airway History: No abnormal airway history STOP BANG Score: Criteria: Hypertension BMI > 35 Age over 50 (69 year old) Neck circumference > 15.75 inches Score = 4 PLAN: This patient is optimally prepared for surgery. CONSULTS: Patient does not require consults for optimization at this time. The Following Tests/Procedures Have Been Initiated: Labs not indicated per PACC protocol, EKG not indicated per PACC protocol Planned Anesthetic: Per anesthesia choice Instructions Given to Patient: Patient given verbal instructions and voices comprehension and compliance. Copy sent electronically via My Chart, email, or mobile device. I spent a total of 30 minutes on the date of the service which included preparing to see the patient and [id number] patient care This is a virtual visit. It required patient-provider interaction for the medical decision making as documented above. SIGNATURE: Hellen Matias APRN.CNS PATIENT NAME: Minal Caputo DATE: 03/19/25 TIME: 10:42 AM PAGER/CONTACT #: documented in this encounter [facility] 03-15-2025 History of Presen t illness Narrative [facility] Refill Assessment Medication(s): Kisqali Patient's current medication list and adherence status [...] progressing towards achieving therapeutic goals based on medication-specific laboratory parameters, disease state markers and outcomes. Office/provider notes have been reviewed prior to dispensing the medication. Industrial Analyst Assessment Patient confirmed: Yes Med/dose confirmed: Yes Supplies needed: No supplies needed Missed doses: No Estimated days supply on hand: 0 Next cycle/dose due: 03/22/25 Copay amount: 0 Delivery method: FedEx Signature required: Waived on patient request Delivery address: [address] [place] [address] Delivery date: 03/19/25 Questions or concerns for the pharmacist?: No [...] TAKE 1 TABLET BY MOUTH EVERY DAY NAPROXEN ORAL Take by mouth two times a day. (Patient taking differently: Take by mouth as needed.) cholecalciferol (VITAMIN D-3) 5,000 unit tab Take 5,000 Units by mouth once daily. spironolactone (ALDACTONE) 25 mg tablet Take 1 tablet by mouth every afternoon. atorvastatin (LIPITOR) 20 mg tablet Take 1 tablet by mouth once daily. losartan (COZAAR) 50 mg tablet Take 50 mg by mouth once daily. esomeprazole magnesium (NEXIUM ORAL) Take 20 mg by mouth once daily. (Patient taking differently: Take 20 mg by mouth as needed.) furosemide (LASIX) 20 mg tablet Take 20 mg by mouth once daily. MULTIVITAMIN ORAL Take 1 Dose by mouth once daily. potassium chloride (K-TAB) 10 mEq tablet Take 10 mEq by mouth once daily. METOPROLOL 100 MG TAB Take 50 mg by mouth two times a day. No current facility-administered medications on file prior to visit. [facility] [place] CLINICAL ASSESSMENT - HEMATOLOGY ONCOLOGY V6: Assessment to use: Refill Date of influenza vaccination reminder: 08/28/2024 Date of most recent vaccination assessment: 08/28/2024 Treatment Plan Information: Diagnosis: T3, N3, M0, invasive lobular carcinoma, grade 2, ER 80%, MT 5% and HER2/akash negative, IHC 0 Previous treatment(s): - L breast mastectomy - DDAC (2 cycles c/b neutropenic fever) - Taxol (2 weeks c/b infection and diverticulitis) - RT (03/03/24-03/24/24) - Verzenio (04/2024 - 05/2024 d/t diarrhea) - Arimidex (04/2024 - current) Treatment Plan: Ribociclib + Anastrozole Medication: Dalia (ribociclib) Sig: Take 2 tablets (400 mg) [...] available Estimated Start Date Info: Per Dr. Neri's discretion Est. Estimated Treatment Duration: 3 years Shanel Oropeza documented in this encounter [facility] 03-15-2025 Note [facility] 03-05-2025 Note [facility] 03-05-2025 History of Presen t illness Narrative Minal is here for f/u, path reviewed with her, suture line intact, sutures removed, reviewed postop wound hygiene; f/u with me as needed. (L72.0) Inclusion cyst (primary encounter diagnosis) Andres Mann MD documented in this encounter [facility] 03-04-2025 Telephone encounter Note Spoke to Minal, appointment rescheduled for tomorrow [facility] 03-04-2025 Miscellaneous Notes Spoke to Minal, appointment rescheduled for tomorrow Minal is calling Andres Mann MD today to request to reschedule her post op appt for today. Please call patient to reschedule Patient has been identified by name and birthdate. Duration of symptoms: N/A Person calling: self Call patient at: on cell [phone] (home) [phone] (cell) Was an appointment scheduled: No Closing statement: Results or non-symptom based questions: Thank you for calling [facility], your call will be returned within the next business day. Brianna Velez documented in this encounter [facility] 03-04-2025 Telephone encounter Note Minal is calling Andres Mann MD today to request to reschedule her post op appt for today. Please call patient to reschedule Patient has been identified by name and birthdate. Duration of symptoms: N/A Person calling: self Call patient at: on cell [phone] (home) [phone] (cell) Was an appointment scheduled: No Closing statement: Results or non-symptom based questions: Thank you for calling [facility], your call will be returned within the next business day. Brianna Velez [facility] 02-23-2025 Surgery Surgical operation note Minal Caputo [id number] February 23, 2025 Time: 1015 Place: [facility] Preop Diagnosis: Left face inclusion cyst Postop diagnosis:same Procedure: Excision of left face inclusion cyst, 2cm excised; complex repair 3.5 cm (cpt 13762) Anesthesia: Local Surgeon: Dharmesh Mann MD No qualified residents to assist with the procedure Legal Aid: ZEN Brief History: The patient was seen In the office with concerns regarding the ff.: face cyst, increasing in size. I discussed expectant management vs. Surgical removal. I discussed The merits and demertis Of each option. I discussed risks and complications associated with the procedure. Discussed potential need/desire for revisions/reoperatiions. No Guarantees given. The patient elected to go ahead with surgical treatment and signed consent. Details of the procedure: The patient was seen in the preop area and the patient noted the procedure to be done and identified the treatment area. Site Verification: patient identified the treatment area, I marked it, the circ nurse confirmed.. I reviewed the planned procedure. The patient was taken to the operating room and laid: supine position. The circulating nurse reviewed the consent, I Infiltrated the treatment area With local anesthetic, it was then prepped and draped in the usual sterile fashion. Blade used:#15 An Incision was made along the marked area - and the dissection was taken through dermis and subcutaneous tissue, the cyst wall identified, dissected from the surrounding soft tissues and removed from the wound. It was sent for permanent section pathology. Hemostasis was obtained, the wound was then irrigated. Repair: The following was done- The atrophic skin excised with a #15 blade. Extensive undermining was done: Layer: subcutaenous Extent: 2cm each side of the defect, width of defect 2cm Deep Subcutaneous tissue - dermal layer closed with: 3-0 monocryl Skin closed with:5-0 prolene Dressing: ointment The patient tolerated the procedure well, instructions given, patient was then taken to the recovery area in stable condition. EBL: minimal Specimens: face cyst Drains: none Start time: ~1000 End time: ~1015 I did the entire procedure myself and was present the entire procedure. Signed: Dharmesh Mann MD [facility] Work Phone: 02-23-2025 Surgical operatio n note Minal Caputo [id number] February 23, 2025 Time: 1015 Place: [facility] Preop Diagnosis: Left face inclusion cyst Postop diagnosis:same Procedure: Excision of left face inclusion cyst, 2cm excised; complex repair 3.5 cm (cpt 25461) Anesthesia: Local Surgeon: Dharmesh Mann MD No qualified residents to assist with the procedure Legal Aid: ZEN Brief History: The patient was seen In the office with concerns regarding the ff.: face cyst, increasing in size. I discussed expectant management vs. Surgical removal. I discussed The merits and demertis Of each option. I discussed risks and complications associated with the procedure. Discussed potential need/desire for revisions/reoperatiions. No Guarantees given. The patient elected to go ahead with surgical treatment and signed consent. Details of the procedure: The patient was seen in the preop area and the patient noted the procedure to be done and identified the treatment area. Site Verification: patient identified the treatment area, I marked it, the circ nurse confirmed.. I reviewed the planned procedure. The patient was taken to the operating room and laid: supine position. The circulating nurse reviewed the consent, I Infiltrated the treatment area With local anesthetic, it was then prepped and draped in the usual sterile fashion. Blade used:#15 An Incision was made along the marked area - and the dissection was taken through dermis and subcutaneous tissue, the cyst wall identified, dissected from the surrounding soft tissues and removed from the wound. It was sent for permanent section pathology. Hemostasis was obtained, the wound was then irrigated. Repair: The following was done- The atrophic skin excised with a #15 blade. Extensive undermining was done: Layer: subcutaenous Extent: 2cm each side of the defect, width of defect 2cm Deep Subcutaneous tissue - dermal layer closed with: 3-0 monocryl Skin closed with:5-0 prolene Dressing: ointment The patient tolerated the procedure well, instructions given, patient was then taken to the recovery area in stable condition. EBL: minimal Specimens: face cyst Drains: none Start time: ~1000 End time: ~1015 I did the entire procedure myself and was present the entire procedure. Signed: Dharmesh Mann MD documented in this encounter [facility] 02-19-2025 Instructions Minal Khanna DO - 02/19/2025 8:57 AM EDT You have Chronic kidney disease stage III, where the last creatinine level was 1.25mg/dL (this has improved from high of 2.1mg/dL in 06/2024) I suspect multifactorial cause of your chronic kidney disease with history of HTN, NSAID use. The creatinine level was highest when you were on verzinio which was stopped due to intestinal side effects I recommend maintaining hydration Work on weight loss Keep good blood pressure and blood sugar control Avoid all NSAIDs (over the counter ones include ibuprofen, naproxen, alleve, motrin and advil.) I will follow up on your lab work as well as ultrasound of the kidneys If you have questions or concerns, please message me on mychart documented in this encounter [facility] 02-19-2025 History of Presen t illness Narrative Images from the original note were not included. Consultation requested by Dr Neri for an opinion regarding kidney function. My final recommendations will be communicated back to the requesting physician by way of shared medical record or letter via US mail Ms. Caputo is a 69 year old female who presents for an evaluation for kidney function with history of A-fib, diverticulitis, GERD, HPl, HTN, obesity, breast cancer, PE in 2023, OA, scoliosis . Breast cancer, diagnosed 07/2023 with mastectomy and lymph node dissection, DDAC started in 10/22/2023, complicated by neutropenic fever after which was switched to taxol 11/2023, course complicated by diverticulitis and decision was made to stop chemo. Had radiation in February 2024. Arimdex started 04/2024, stopped 07/2024 due to arthralgia, letrozole started 08/2024. Verzinio between 04/2024-06/2024 due to GI side effects. Ribociclib started 06/2024. HTN for 20-30 years: on losartan 50mg daily, metoprolol 50mg daily, spironolactone 25mg daily. Also on lasix 20mg daily. Creatinine mikayla in 11/2023 up to 1.35mg/d to as high was 2.17mg/dL in 06/2024, creatinine has trended down and is at 1.25mg/dL when last checked in 12/2024. Of note, in 06/2024, when her serum creatinine was at 2.17mg/dL, her cystatin C was measured at 1.66mg/dL. Fluid intake: 1 26 ounce of water, also drinks mountain dew, orange juice, milk, sometimes sweet tea Is on NSAIDs, uses this as needed. Is about 1-2 times a week, at one point was taking it daily for several months, then started to take it on a PRN basis. PAST MEDICAL HISTORY Diagnosis Date Atrial fibrillation [...] HISTORY OF Bilateral total knee arthroplasty PORT Current Outpatient Medications Medication Sig ribociclib (KISQALI) 400 mg/day (200 mg x 2) tab Take 2 tablets (400 mg) by mouth once daily for 21 days. Then take a 7-day rest period to complete a 28-day treatment cycle. Discard after 60 days from fill date. letrozole (FEMARA) 2.5 mg tablet TAKE 1 TABLET BY MOUTH EVERY DAY NAPROXEN ORAL Take by mouth two times a day. (Patient taking differently: Take by mouth as needed.) cholecalciferol (VITAMIN D-3) 5,000 unit tab Take 5,000 Units by mouth once daily. spironolactone (ALDACTONE) 25 mg tablet Take 1 tablet by mouth every afternoon. atorvastatin (LIPITOR) 20 mg tablet Take 1 tablet by mouth once daily. losartan (COZAAR) 50 mg tablet Take 50 mg by mouth once daily. esomeprazole magnesium (NEXIUM ORAL) Take 20 mg by mouth once daily. (Patient taking differently: Take 20 mg by mouth as needed.) furosemide (LASIX) 20 mg tablet Take 20 mg by mouth once daily. MULTIVITAMIN ORAL Take 1 Dose by mouth once daily. potassium chloride (K-TAB) 10 mEq tablet Take 10 mEq by mouth once daily. METOPROLOL 100 MG TAB Take 50 mg by mouth two times a day. No current facility-administered medications for this visit. ALLERGIES Allergen Reactions Fentanyl Intolerance Drop in RR and drop in pulse ox to 70% Adhesive Tape-Silic* Rash Sulfa (Sulfonamide * Unknown FAMILY HISTORY Problem Relation Age of Onset [...] No Family History Strabismus No Family History Is there no family history of kidney disease Social history: reports that she has never smoked. She has never used smokeless tobacco. She reports rare alcohol use. She reports that she does not use drugs. General no fever no weight loss no fatigue Head / Neck no photophobia no epistaxis no chronic nasal congestion no oral ulcers/sores no metallic or bitter taste Cardiac no chest pain or pressure no palpitations no dizziness no lightheadedness no syncope Vascular EDEMA no claudication no Raynauds Pulmonary DYSPNEA ON EXERTION no cough no hemoptysis GI no loss of appetite no nausea no emesis no diarrhea no constipation URINARY FREQUENCY no nocturia no straining no decreased urine no frothy urine no pink or red urine no flank pain no groin pain Endocrinology HEAT OR COLD INTOLERANCE (Comment: on hormonal therapy) Musculoskeletal JOINT PAIN Neurologic no parathesias no numbness no tremor Derm no rash no malar rash Heme no easy bruising no easy bleeding Other no excessive snoring PHYSICAL EXAMINATION: BP 131/75 (BP Site: Right Arm, BP Position: Sitting, BP Cuff Size: Large Adult) Pulse 71 Ht 157.5 cm (5' 2 ) Wt 121.4 kg (267 lb 10.2 oz) LMP 08/26/2006 (Approximate) BMI 48.95 kg/m BP - standardized method Pulse 1 BP #1: 130/70 Pulse #1: 72 beats/min 2 BP #2 : 135/78 Pulse #2 : 71 beats/min 3 BP #3 : 127/76 Pulse #3 : 70 beats/min Average Average BP: 131/75 Average Pulse: 71 beats/min BP cuff location BP cuff location: Right upper arm BP cuff size BP cuff size: large adult First BP (right) First BP (left) Standin/69 HR 74 General appearance: well appearing, in no acute distress, alert HEENT: NC/AT Neck: supple Lungs: normal respiratory effort, clear to auscultation bilaterally Heart: RRR, normal S1 and S2 Abdomen: soft, NT, ND, normoactive BS Back: no CVA tenderness Extremities: edema wearing compression stockings Neuro: alert and oriented x 3 DATA: Diagnostic tests reviewed for today's visit: Blood work, imaging studies, and office notes were reviewed in epic Sodium (mmol/L) Date Value 12/24/2024 142 09/11/2024 140 07/14/2024 141 Creatinine (mg/dL) Date Value 12/24/2024 1.25 (H) 09/11/2024 1.74 (H) 07/14/2024 1.72 (H) Vitamin D 25 Hydroxy (ng/mL) Date Value 04/21/2024 62.4 Potassium (mmol/L) Date Value 12/24/2024 4.3 09/11/2024 4.8 07/14/2024 4.5 Calcium, Total (mg/dL) Date Value 12/24/2024 9.3 09/11/2024 9.3 07/14/2024 9.8 Hemoglobin (g/dL) Date Value 12/24/2024 11.4 (L) 09/11/2024 11.6 07/06/2024 11.4 (L) Hemoglobin A1C (%) Date Value 03/14/2022 6.3 (H) Latest Ref Rng & Units 12/24/2024 09/11/2024 07/14/2024 BMP Glucose 74 - 99 mg/dL 181 173 149 BUN 7 - 21 mg/dL 18 25 20 Creatinine 0.58 - 0.96 mg/dL 1.25 1.74 1.72 Sodium 136 - 144 mmol/L 142 140 141 Potassium 3.7 - 5.1 mmol/L 4.3 4.8 4.5 Chloride 98 - 107 mmol/L 105 102 103 CO2 22 - 30 mmol/L 25 22 23 Anion Gap 8 - 15 mmol/L 12 16 15 Calcium 8.5 - 10.2 mg/dL 9.3 9.3 9.8 EGFR >=60 mL/min/1.73m 46 31 32 Latest Ref Rng 07/06/2024 Creatinine 0.58 - 0.96 mg/dL 2.17 (H) Cystatin C 0.61 - 0.95 mg/L 1.66 (H) Cystatin C eGFR >=60 mL/min/1.73m 36 (L) Latest Ref Rng 02/19/2025 GLUCOSE UA (POCT) Negative mg/dL Negative BILIRUBIN UA (POCT) Negative Negative KETONE UA (POCT) Negative mg/dL Negative SPECIFIC GRAVITY UA (POCT) 1.005 - 1.030 1.015 HEMOGLOBIN/BLOOD UA (POCT) Negative Negative PH UA (POCT) 4.5 - 8.0 5.5 PROTEIN UA (POCT) Negative mg/dL Negative UROBILINOGEN UA (POCT) Normal E.U./dL 0.2 NITRITE UA (POCT) Negative Negative LEUKOCYTES UA (POCT) Negative Small ! COLOR UA (POCT) Yellow CLARITY UA (POCT) Clear ASSESSMENT/PLAN: Ms. Caputo is a 69 year old female who presents for an evaluation for kidney function with history of A-fib, diverticulitis, GERD, HPl, HTN, obesity, breast cancer, PE in 2023, OA, scoliosis. 1) CKD stage III - appears she had worsening of her kidney function when creatinine mikayla to 1.35mg/dL in 11/2023, peaked at 2.17mg/dL in 06/2024 and now improving, suspect CKD is multifactorial in the background of age related nephron loss, HTN, NSAID use, as well as hemodynamic fluctuations - Discussed avoiding nephrotoxins such as NSAIDs - she has already cut down on this - update renal US - reviewed hydration 2) Hypertension: okay, on losartan 50mg daily, metoprolol 50mg daily, spironolactone 25mg daily. Also on lasix 20mg daily, she did have a lower bp earlier this week - advised to monitor home bps and message me if issues 3) Breast cancer: followed by oncology, currently on ribociclib and lerozole 4) Ca/Phos: okay, will update phos 5.) PTH: check 6) Heme: mildly anemic, will defer to her oncologist 7) obesity: work on weight loss - wants to wait before starting anything new 8) elevated hgA1c in 2021, update now Follow up in 6 months Minal Khanna DO documented in this encounter [facility] 02-19-2025 Note [facility] 02-16-2025 Miscellaneous Notes Patient called into office stating that she received a letter that she was overdue for her mammogram screening. Chart shows that the last one was 01/24/24. MAW scheduled for 06/22/25. Please advise? Patient notified of order placed. documented in this encounter [facility] 02-16-2025 Telephone encounter Note Patient called into office stating that she received a letter that she was overdue for her mammogram screening. Chart shows that the last one was 01/24/24. MAW scheduled for 06/22/25. Please advise? [facility] 02-16-2025 Telephone encounter Note Patient notified of order placed. [facility] 02-15-2025 History of Presen t illness Narrative [facility] Refill Assessment Medication(s): Kisqali Patient's current medication list and adherence status [...] progressing towards achieving therapeutic goals based on medication-specific laboratory parameters, disease state markers and outcomes. Office/provider notes have been reviewed prior to dispensing the medication. Industrial Analyst Assessment Patient confirmed: Yes Med/dose confirmed: Yes Supplies needed: No supplies needed Missed doses: No Estimated days supply on hand: 0 Next cycle/dose due: 02/22/25 Copay amount: 0 Delivery method: FedEx Signature required: Waived on patient request Delivery address: [address] [place] [id number] Delivery date: 02/19/25 Questions or concerns for the pharmacist?: No Did you have any side effects believed to be related to this medication, that resulted in hospitalization?: No Current Outpatient Medications on File Prior to Visit Medication Sig cephALEXin (KEFLEX) 500 mg capsule Take 1 capsule by mouth three times a day for 3 days. ribociclib (KISQALI) 400 mg/day (200 mg x 2) tab Take 2 tablets (400 mg) by mouth once daily for 21 days. Then take a 7-day rest period to complete a 28-day treatment cycle. Discard after 60 days from fill date. letrozole (FEMARA) 2.5 mg tablet TAKE 1 TABLET BY MOUTH EVERY DAY NAPROXEN ORAL Take by mouth two times [...] times a day. No current facility-administered medications on file prior to visit. [facility] [place] CLINICAL ASSESSMENT - HEMATOLOGY ONCOLOGY V6: Assessment to use: Refill Date of influenza vaccination reminder: 08/28/2024 Date of most recent vaccination assessment: 08/28/2024 Treatment Plan Information: Diagnosis: T3, N3, M0, invasive lobular carcinoma, grade 2, ER 80%, MT 5% and HER2/akash negative, IHC 0 Previous [...] available Estimated Start Date Info: Per Dr. Neri's discretion Est. Estimated Treatment Duration: 3 years Shanel Oropeza documented in this encounter [facility] 02-15-2025 Note [facility] 02-15-2025 Note IMPRESSION: Severe left hip osteoarthritis, progressed since 2021. Cryptographic Clerk: BEA Transcribe Date/Time: Feb 15 2025 1:05P Dictated by : ABUNDIO VILLA MD This examination was interpreted and the report reviewed and electronically signed by: ABUNDIO VILLA MD on Feb 15 2025 1:07PM EST [facility] 02-15-2025 History of Presen t illness Narrative Assessment NEW CONSULT PATIENT NAME: Minal Caputo REASON FOR CONSULT: Patient presents with: New Patient: REQUESTING PHYSICIAN: Mitch Neri MD DATE of SERVICE: 01/28/2025 TIME of SERVICE: 1:12 PM PCP: Sunny Jenkins MD Chief Complaint: difficulty breathing Consultation requested by Dr. Mitch Neri for an opinion regarding paraesophageal hernia. My final recommendations will be communicated back to the requesting physician by way of shared Medical record or letter to requesting physician via US mail. HPI: Minal Caputo is a 69-year-old female with a history of a paraesophageal hernia, presenting with dyspnea. Minal reports dyspnea, which she attributes to her paraesophageal hernia. She has a history of scoliosis, which has also contributed to lung issues. She denies dysphagia but endorses heartburn, describing it as severe enough to cause a burning sensation in her nose. She previously took Nexium regularly, which healed her esophagus, but now only takes it as needed, approximately a couple of times a month, depending on her diet. She mentions having had multiple endoscopies, the most recent being about 3 years ago, but her chart shows one in 2022, and a CT scan about a month ago at [facility], which reportedly showed a medium to large hernia. She denies having a current machine fitter and last underwent pulmonary function testing about 15 years ago. She expresses a desire for surgical intervention to address her hernia, despite being advised against it due to her weight. She states, I'm 69 years old, if it comes back, who cares at this point? She emphasizes that her primary concern is her breathing, stating, Anything that's bothering my breathing, you got to do something. She also notes significant limitations in mobility due to her weight, stating, I can't move. If I could move, I wouldn't have a problem. I'm a very active, I was very athletic and very active. I can't move. She expresses a strong aversion to bariatric surgery, stating, I don't want bariatrics. PAST MEDICAL HISTORY: PAST MEDICAL HISTORY Diagnosis Date Atrial fibrillation (HCC) Diverticulitis GERD (gastroesophageal reflux disease) Hiatal hernia HLD (hyperlipidemia) HTN (hypertension) Obesity, unspecified Other and unspecified hyperlipidemia Scoliosis Spinal stenosis, unspecified region other than cervical UTI (urinary tract infection) PAST SURGICAL HISTORY: PAST SURGICAL HISTORY Procedure Laterality Date , CLASSIC, IN-HOSP CARE 1980 COLONOSCOPY CURETTAGE EGD MASTECTOMY, SIMPLE, COMPLETE Left PAST SURGICAL HISTORY OF 1986 spinal instrumentation (Valadez rods) PAST SURGICAL HISTORY OF 2006 lumbar laminectomy PAST SURGICAL HISTORY OF hysteroscopy with removal of fibroid, cyst, polyps PAST SURGICAL HISTORY OF Bilateral total knee arthroplasty PORT FAMILY HISTORY: FAMILY HISTORY Problem Relation Age of Onset [...] No Family History Strabismus No Family History SOCIAL HISTORY: Social History Tobacco Use Smoking status: Never Smokeless tobacco: Never Vaping Use Vaping status: Never Used Substance Use Topics Alcohol use: Yes Comment: socially- couple times per year Drug use: Never Review of Systems: Respiratory: (+) dyspnea Gastrointestinal: (+) heartburn, (-) dysphagia PHYSICAL EXAMINATION: BP (!) 98/4 Pulse 71 Ht 157.5 cm (5' 2.01 ) Wt 126.1 kg (278 lb) LMP 08/26/2006 (Approximate) SpO2 97% BMI 50.83 kg/m PHYSICAL EXAMINATION: General appearance: Obese and Walker IMAGING: CT ABD/PEL OSH 05/04/2024: View External Imaging - CT Scan [ID [id number]] Personal review and interpretation shows moderate paraesophageal hernia (not giant, no other organs in the hernia). EGD 02/11/2023: Findings: A 3 cm hiatal hernia was present. The exam of the esophagus was otherwise normal. Multiple small sessile polyps were found in the gastric body. Biopsies were taken with a cold forceps for histology. The exam of the stomach was otherwise normal. The examined duodenum was normal. Impression: - 3 cm hiatal hernia. - Multiple gastric polyps. Biopsied. - Normal examined duodenum. EGD DIAGNOSTIC (Order #[id number]) on 02/11/2023 - Order Result History Report IMPRESSION and PLAN: 1. Hiatal hernia (K44.9) Difficulty breathing (R06.89) Recent CT scan shows a moderate to large paraesophageal hernia. Patient reports breathing difficulties, which may or may not be related to the hernia. No dysphagia reported. Previous CT scan from 05/04/2024 also noted a moderate-sized hernia. Patient has a history of scoliosis contributing to lung issues. - Obtain the most recent CT scan from [facility] for review. - Refer to pulmonology for evaluation of respiratory issues and to assess the contribution of the hernia to breathing difficulties. - Her weight and deconditioning also likely are contributing to her difficulty breathing. - Schedule an upper endoscopy to evaluate the stomach and esophagus. - Order an esophagram to assess for active regurgitation. 2. Class 3 severe obesity due to excess calories with body mass index (BMI) of 50.0 to 59.9 in adult, unspecified whether serious comorbidity present (HCC) (E66.813) Patient has a high BMI, which increases the risk of hernia recurrence post-surgery. Patient is resistant to bariatric surgery. - Discussed the importance of weight optimization prior to considering surgical repair of the hernia. - Offered referral to medical weight loss specialists to assist with weight management. - Her weight and deconditioning also likely are contributing to her difficulty breathing. 3. Gastroesophageal reflux disease without esophagitis (K21.9) GERD symptoms are currently managed with as-needed Nexium, used a couple of times a month. No current esophagitis reported. - Continue Nexium as needed. - Monitor for any changes in GERD symptoms. I think that her difficulty breathing is likely multifactorial from obesity, deconditioning, scoliosis, and (as lowest contributor) possibly her paraesophageal hernia. We discussed in depth that we would only repair this at her current BMI in combination with weight loss surgery or for severe symptoms, typically GI, if the stomach is for example, torsed. We will complete the above workups and see her back after they are complete. Medical Decision Making: Problems: High: Chronic illness with severe change Data: Unique test result(s) reviewed: 2 Independent interpretation of test from other physician/QHCP Risk: Low: Low risk from testing/treatment Medical Decision Making Level: 4 - Moderate; Gómez Baker MD documented in this encounter [facility] 02-15-2025 Note [facility] 02-15-2025 Note [facility] 02-15-2025 History of Presen t illness Narrative Associated Order(s): Large Joint Arthro/Inj: L hip joint Post-Procedure Diagnose(s): Primary osteoarthritis of left hip Minal Caputo is a patient of Sunny Jenkins MD. CHIEF COMPLAINT: Minal Caputo is a 69 year old female who presents today for follow up of left hip. HISTORY OF PRESENT ILLNESS: PAIN EVALUATION 02/15/2025 1005 Pain Level: 4 Pain Location: Hip-Left Description: Aching;Sore;Dull Duration Amount of Time: 1 Duration Units: Years Frequency: Intermittent Intervention/Comfort measure: Medication;Reposition;Relaxation Follow-up of the left hip Last seen 2 years ago Pain in the left hip/groin Denies any new injury Does not recall fci significant relief from IA hip injection done PHYSICAL EXAMINATION: Specific MSK Exam Antalgic gait IMAGING: Final results and radiologist's interpretation, available in the [facility] health record. Images were reviewed with the patient/family members in the office today. My personal interpretation of the performed imaging is progressed degenerative changes CLINICAL IMPRESSION / ASSESSMENT: (M16.12) Primary osteoarthritis of left hip (primary encounter diagnosis) (M25.552) Pain in left hip PLAN: Discussed with her that the symptoms are from the left hip OA Discussed options of the left hip OA- CSI, surgery She would not qualify for surgery at this time due to current weight. Discussed the risks of surgery with BMI > 40. She would need to be around 215lbs Discussed the option of nutrition consult, she declined CSI to the left IA hip done in office today Large Joint Arthro/Inj: L hip joint 02/15/2025 [...] these instructions. Informed Consent Consent Obtained: Verbal [place] Protocol A moment to CARE was completed. [...] the bedside nurse for hospitalized patients) applicable. Micah Son DO documented in this encounter [facility] 02-15-2025 Note [facility] 02-15-2025 History of Presen t illness Narrative Minal is a 69 yo female, her main concern is the extra skin on her left chest wall that painful and gets irritated with rashes. 07/2023- underwent left mastectomy, Dr. Crump 08/2023- underwent ALND, Dr Crump followed by Lymphatic Bypass, Dr Child. She noted that the scar ended in her lateral chest wall and there is residual skin that is painful by the scar from time to time, she also noted that the fold gets irritated intermittently. PAST MEDICAL HISTORY Diagnosis Date Atrial fibrillation [...] HISTORY OF Bilateral total knee arthroplasty PORT Exam: BMI- 51 Not in acute distress A/o x 3 Affect appropriate No labored breathing Well healed left mastectomy scar. The lateral scar ends with residual skin excess, with some tenderness on palpation.The skin excess extends from the lateral chest wall to the upper back. No evidence of intertrigo at present. Assessment: (R52, L90.5) Painful scar (primary encounter diagnosis) (L98.7) Excess skin I discussed with her the ff.: 1- options Do nothing, or Lipectomy and scar revision 2- merits and demerits of each option. Outlined on her skin the planned incision lines and the anticipated area /amount of skin to be removed. 3.- the sensitivity of her scar may be d form of neuroma and noted that excising the scar and additional skin may or may NOT address this problem. 4- risks and complications of the procedure including delayed wound healing. She will think about this. She then brought to my attention a soft tissue mass on her left face- jawline,present for years. She noted that then she would squeeze it and waxy foul smelling material would come out. It has increased in size and she would like it removed. Exam consistent with an inclusion cyst, ~ 2cm in diameter; currently not inflamed. I reviewed with her what is involved in an excision. I outlined on her skin the incision lines and anticipated scarring. Discussed risks of the procedure. She elected removal and signed consent. Assessment: (L72.0) Inclusion cyst Plan: Excision of face cyst and repair; local; outpatient Andres Mann MD documented in this encounter [facility] 02-15-2025 History of Presen t illness Narrative Radiology Service Progress Note PATIENT NAME: Minal Caputo DATE OF SERVICE: February 15, 2025 TIME: 9:59 AM PATIENT IDENTITY VERIFICATION COMPLETED USING TWO [...] place to prevent falls during this visit? Instructed Patient to Call for Help if Needed, Offered Assistance with Transfers/Clothing, Instructed Patient to Remain Seated (Not on Exam Table) Until Exam, and Increased Observations by Caregivers PATIENT GENDER DATA: Assigned female at . status: : No status: NO. PATIENT RELEVANT IMPLANT DATA REVIEWED: Not Applicable PATIENT PRESENTS WITH AN IMPLANTABLE OR ATTACHED MERCERIZER MACHINE OPERATOR: No RADIOLOGY DEPARTMENT: General X-ray: Exam(s) Completed: Pelvis X-Ray: Pelvis with Hip Left PERIPHERAL IV DATA: Not applicable SIGNED BY: RT Jessica(R) February 15, 2025 9:59 AM documented in this encounter [facility] 02-15-2025 Note [facility] 01-19-2025 History of Presen t illness Narrative [facility] Refill Assessment Medication(s): Kisqali Patient's current medication list and adherence status [...] progressing towards achieving therapeutic goals based on medication-specific laboratory parameters, disease state markers and outcomes. Office/provider notes have been reviewed prior to dispensing the medication. Industrial Analyst Assessment Patient confirmed: Yes Med/dose confirmed: Yes Supplies needed: No supplies needed Missed doses: No Estimated days supply on hand: 0 Next cycle/dose due: 01/25/25 Copay amount: 0 Delivery method: FedEx Signature required: Waived on patient request Delivery address: [address] [place] [id number] Delivery date: 01/22/25 Questions or concerns for the pharmacist?: No [...] TAKE 1 TABLET BY MOUTH EVERY DAY NAPROXEN ORAL Take by mouth two times [...] times a day. No current facility-administered medications on file prior to visit. [facility] [place] CLINICAL ASSESSMENT - HEMATOLOGY ONCOLOGY V6: Assessment to use: Refill Date of influenza vaccination reminder: 08/28/2024 Date of most recent vaccination assessment: 08/28/2024 Treatment Plan Information: Diagnosis: T3, N3, M0, invasive lobular carcinoma, grade 2, ER 80%, MT 5% and HER2/akash negative, IHC 0 Previous treatment(s): - L breast mastectomy - DDAC (2 cycles c/b neutropenic fever) - Taxol (2 weeks c/b infection and diverticulitis) - RT (03/03/24-03/24/24) - Verzenio (04/2024 - 05/2024 d/t diarrhea) - Arimidex (04/2024 - current) Treatment Plan: Ribociclib + Anastrozole Medication: Dalia (ribociclib) Sig: Take 2 tablets (400 mg) [...] available Estimated Start Date Info: Per Dr. Neri's discretion Est. Estimated Treatment Duration: 3 years Shanel Oropeza documented in this encounter [facility] 01-19-2025 Note [facility] 12-30-2024 Instructions Mara Solano LPN - 12/30/2024 9:54 AM EDT Schedule OV with Dr. Son, Ortho Schedule consult with Dr. Candelaria, general surgery F/U with Dr. Neri 04/01/25, port draw appt @ [facility] ( pt will call to schedule port draw) Schedule OV with Dr. Gabby Cobian, plastic surgery Schedule Mammogram ( pt prefers with another appt to reduce travel) documented in this encounter [facility] 12-30-2024 Note [facility] 12-30-2024 History of Presen t illness Narrative PATIENT NAME: Minal Caputo CLINIC NO.: [id number] ATTENDING PHYSICIAN: Mitch Neri MD DATE OF SERVICE: December 30, 2024 Some of the elements of this note have been copied from my previous progress note dated 07/16/2024. All the information has been reviewed carefully. Dear Dr. Mendoza Yang here is an update on a follow up visit on female Minal Caputo at the clinic December 30, 2024 Diagnosis: L Breast Cancer: pT3,N3,M0, Grade 2 ILC, 6.3 cm, LVI present, Margins Negative, ER 80%, MT 5% and Her-2 IHC-0 Germline testing 07/2023: [...] 2024, held secondary to renal function. Resumed 12/30/2024 7. Arimdex 04/2024- Stopped 07/2024 due to arthralgia 8. Verzinio End of April 2024- required dose reduction due to GI AE.-- 100 mg PO BID- 05/2024- Stopped 06/2024 due to diarrhea. 9. Ribociclib 400 mg 21 out of 28 days started June 2024 10. Letrozole 08/2024 after resolution of arthralgia from the Arimidex. HPI: Minal Caputo is a 68 year [...] grade 1 invasive lobular carcinoma ER 80%, MT 5% and HER2/akash with IHC 0. A [...] elected to transfer her care to the [facility] and underwent a L breast mastectomy [...] without any abnormalities. Interval History: She is tolerating the Femara well and also doing well with the Kisquali. Denies any abdominal pain and or fevers. She states that her hiatal hernia has been bothering her and also her movement has been limited due to her L hip pain which has been chronic she has seen ortho in the past. They have encouraged weight loss. PAST MEDICAL HISTORY Diagnosis Date Atrial fibrillation [...] of hands/feet. No weakness. PHYSICAL EXAMINATION: BP 124/50 Pulse 72 Temp (Src) 97.9 (Temporal Artery) Resp 18 Ht 5' 2 (1.58m) Wt 278 lb 12.4 oz (126.5kg) SpO2 97% LMP 08/26/2006 BMI 50.98 kg/(m^2). Wt 125.2 kg (276 lb 0.3 [...] : Deferred LABS: Glucose (mg/dL) Date Value 12/24/2024 181 04/02/2018 129 Potassium (mmol/L) Date Value 12/24/2024 4.3 04/02/2018 4.1 Sodium (mmol/L) Date Value 12/24/2024 142 04/02/2018 136 Chloride (mmol/L) Date Value 12/24/2024 105 04/02/2018 100 CO2 (mmol/L) Date Value 12/24/2024 25 04/02/2018 25 Creatinine (mg/dL) Date Value 12/24/2024 1.25 04/02/2018 0.83 BUN (mg/dL) Date Value 12/24/2024 18 04/02/2018 16 Anion Gap (mmol/L) Date Value 12/24/2024 12 04/02/2018 11 Calcium (mg/dL) Date Value 04/02/2018 8.2 Calcium, Total (mg/dL) Date Value 12/24/2024 9.3 Protein, Total (g/dL) Date Value 12/24/2024 6.7 03/19/2018 6.8 Albumin (g/dL) Date Value 12/24/2024 4.0 03/19/2018 4.2 Bilirubin, Total (mg/dL) Date Value 12/24/2024 0.5 03/19/2018 0.5 Alkaline Phosphatase (U/L) Date Value 12/24/2024 96 03/19/2018 107 AST (U/L) Date Value 12/24/2024 18 03/19/2018 27 ALT (U/L) Date Value 12/24/2024 16 03/19/2018 38 WBC Date Value Ref Range Status 12/24/2024 2.31 (L) 3.70 - 11.00 k/uL Final RBC Date Value Ref Range Status 12/24/2024 3.30 (L) 3.90 - 5.20 m/uL Final Hemoglobin Date Value Ref Range Status 12/24/2024 11.4 (L) 11.5 - 15.5 g/dL Final Hematocrit Date Value Ref Range Status 12/24/2024 33.5 (L) 36.0 - 46.0 % Final MCV Date Value Ref Range Status 12/24/2024 101.5 (H) 80.0 - 100.0 fL Final MCH Date Value Ref Range Status 12/24/2024 34.5 (H) 26.0 - 34.0 pg Final MCHC Date Value Ref Range Status 12/24/2024 34.0 30.5 - 36.0 g/dL Final RDW-CV Date Value Ref Range Status 12/24/2024 18.3 (H) 11.5 - 15.0 % Final Platelet Count Date Value Ref Range Status 12/24/2024 304 150 - 400 k/uL Final MPV Date Value Ref Range Status 12/24/2024 9.1 9.0 - 12.7 fL Final Abs Neut Date Value Ref Range Status 12/24/2024 1.35 (L) 1.45 - 7.50 k/uL Final Lymphocytes % Date Value Ref Range Status 12/24/2024 22.1 % Final Abs Lymph Date Value Ref Range Status 12/24/2024 0.51 (L) 1.00 - 4.00 k/uL Final Monocytes % Date Value Ref Range Status 12/24/2024 10.0 % Final Abs Monroe Date Value Ref Range Status 12/24/2024 0.23 <0.87 k/uL Final Eosin% Date Value Ref Range Status 11/05/2023 0.9 % Final Abs Eosin Date Value Ref Range Status 12/24/2024 0.17 <0.46 k/uL Final Basophils % Date Value Ref Range Status 12/24/2024 2.2 % Final Abs Baso Date Value Ref Range Status 12/24/2024 0.05 <0.11 k/uL Final PATH: L Breast Lumpectomy [...] Examined (sentinel and non-sentinel) 4 Number of Randolph Nodes Examined 4 pTNM CLASSIFICATION (AJCC 8th [...] invasive lobular carcinoma, grade 2, ER 80%, MT 5% and HER2/akash negative, IHC 0, cancer [...] symptoms almost nearly resolved and after lengthy discussion she started letrozole August 2024, tolerating well thus [...] Follow-up on LFTs-resolved Continue PT for lymphedema -Refer to plastics and also continue PT and Pump at home Started Zometa q 6 months 04/21/2024-Held September 2024 dose and resume 12/30/2024 CRI- Following nephrology Hiatal Hernia- Refer to Dr. Bari Odonnell Hip osteoarthritis- Ortho referral and encouraged weight loss Will see patient back in 3 months and follow up on labs and Plastics, Gen surg and also ortho referral. Thank you for the kind referral. If there are any questions and or concerns please do not hesitate to contact me at [phone]. Mitch Neri MD Hematology/Medical Oncology [facility] spent a total of 30 minutes on the date of the service which included preparing to see the patient, [id number] patient care, completing clinical documentation, obtaining and/or reviewing separately obtained history, performing a medically appropriate examination, and counseling and educating the patient/family/caregiver. CC: GregorySunny loera MD documented in this encounter [facility] 12-24-2024 Note HNO ID: [id number] Author: HANSA ARORA MA Service: ? Author Type: Supervisor Process Testing Type: Progress Notes Filed: 12/24/2024 09:13 Note Text: EKG performed as ordered. Hansa Arora MA [facility] 12-24-2024 History of Presen t illness Narrative EKG performed as ordered. Hansa Arora MA documented in this encounter [facility] 12-22-2024 Telephone encounter Note Please schedule repeat EKG and notify patient. [facility] 12-22-2024 Miscellaneous Notes Please schedule repeat EKG and notify patient. documented in this encounter [facility] 12-21-2024 History of Presen t illness Narrative [facility] Ref[facility] Assessment Medication(s): Kisqali Patient's current medication list and adherence status [...] progressing towards achieving therapeutic goals based on medication-specific laboratory parameters, disease state markers and outcomes. Office/provider notes have been reviewed prior to dispensing the medication. Industrial Analyst Assessment Patient confirmed: Yes Med/dose confirmed: Yes Supplies needed: No supplies needed Missed doses: No Estimated days supply on hand: 0 Next cycle/dose due: 12/28/24 Copay amount: 0 Delivery method: FedEx Signature required: Waived on patient request Delivery address: [address] [place] [address] Tiar[facility] [id number] Delivery date: 12/24/24 Questions or concerns for the pharmacist?: No [...] TAKE 1 TABLET BY MOUTH EVERY DAY PENICILLIN V POTASSIUM ORAL Take by mouth. NAPROXEN ORAL Take by mouth two times [...] times a day. No current facility-administered medications on file prior to visit. [facility] [place] CLINICAL ASSESSMENT - HEMATOLOGY ONCOLOGY V6: Assessment to use: Refill Date of influenza vaccination reminder: 08/28/2024 Date of most recent vaccination assessment: 08/28/2024 Treatment Plan Information: Diagnosis: T3, N3, M0, invasive lobular carcinoma, grade 2, ER 80%, MT 5% and HER2/akash negative, IHC 0 Previous treatment(s): - L breast mastectomy - DDAC (2 cycles c/b neutropenic fever) - Taxol (2 weeks c/b infection and diverticulitis) - RT (03/03/24-03/24/24) - Verzenio (04/2024 - 05/2024 d/t diarrhea) - Arimidex (04/2024 - current) Treatment Plan: Ribociclib + Anastrozole Medication: Dalia (ribociclib) Sig: Take 2 tablets (400 mg) [...] available Estimated Start Date Info: Per Dr. Neri's discretion Est. Estimated Treatment Duration: 3 years Shanel Oropeza documented in this encounter [facility] 12-21-2024 Note [facility] 11-24-2024 Telephone encounter Note Reviewed with Dr Neri in office-need for cbc/diff, cmp on week off of Kisqali. Keep appts as scheduled. [facility] 11-24-2024 Miscellaneous Notes Reviewed with Dr Neri in office-need for cbc/diff, cmp on week off of Kisqali. Keep appts as scheduled. documented in this encounter [facility] 11-23-2024 History of Presen t illness Narrative [facility] Medication(s): [facility] Patient's current medication list and adherence status [...] progressing towards achieving therapeutic goals based on medication-specific laboratory parameters, disease state markers and outcomes. Office/provider notes have been reviewed prior to dispensing the medication. Industrial Analyst Assessment Patient confirmed: Yes Med/dose confirmed: Yes Supplies needed: No supplies needed Missed doses: No Estimated days supply on hand: 0 Next cycle/dose due: 11/30/24 Copay amount: 0 Copay form of payment: (N/A) Payment confirmed: Yes Delivery method: FedEx Signature required: Waived on patient request Delivery address: [address] [place] [id number] Delivery date: 11/27/24 Questions or concerns for the pharmacist?: No Did you have any side effects believed to be related to this medication, that resulted in hospitalization?: No Current Outpatient Medications on File Prior to Visit Medication Sig letrozole (FEMARA) 2.5 mg tablet TAKE 1 TABLET BY MOUTH EVERY DAY PENICILLIN V POTASSIUM ORAL Take by mouth. Ribociclib 400 mg/day (200 mg X 2) tablets (KISQALI) Take 2 tablets (400 mg) by mouth once daily for 21 days. Then take a 7-day rest period to complete a 28-day treatment cycle. Discard after 60 days from fill date. NAPROXEN ORAL Take by mouth two times [...] times a day. No current facility-administered medications on file prior to visit. [facility] [place] CLINICAL ASSESSMENT - HEMATOLOGY ONCOLOGY V6: Assessment to use: Refill Date of influenza vaccination reminder: 08/28/2024 Date of most recent vaccination assessment: 08/28/2024 Treatment Plan Information: Diagnosis: T3, N3, M0, invasive lobular carcinoma, grade 2, ER 80%, MT 5% and HER2/akash negative, IHC 0 Previous treatment(s): - L breast mastectomy - DDAC (2 cycles c/b neutropenic fever) - Taxol (2 weeks c/b infection and diverticulitis) - RT (03/03/24-03/24/24) - Verzenio (04/2024 - 05/2024 d/t diarrhea) - Arimidex (04/2024 - current) Treatment Plan: Ribociclib + Anastrozole Medication: Dalia (ribociclib) Sig: Take 2 tablets (400 mg) [...] ECG (07/17/24) QTc 433 - Hep B (5/28/24): Hep B Surf Ab (-), Core Ab (-), Surf Ag (-) Drug-Drug Interactions: 08/28/24 [C] Atorvastatin: ribociclib may increase the serum concentration of atorvastatin - monitor for increased adverse effects (myopathy) Vaccine Recommendations: Td, RSV, covid, flu Est. Tx Plan Start Date: No information available Estimated Start Date Info: Per Dr. Neri's discretion Est. Estimated Treatment Duration: 3 years Halle Serrato documented in this encounter [facility] 11-23-2024 Note [facility] 11-23-2024 Note [facility] 10-26-2024 History of Presen t illness Narrative [facility] Medication(s): Kisqali Patient's current medication list and adherence status [...] progressing towards achieving therapeutic goals based on medication-specific laboratory parameters, disease state markers and outcomes. Office/provider notes have been reviewed prior to dispensing the medication. Industrial Analyst Assessment Patient confirmed: Yes Med/dose confirmed: Yes Supplies needed: No supplies needed Missed doses: No Estimated days supply on hand: 0 Next cycle/dose due: 11/02/24 Copay amount: 0 Delivery method: FedEx Signature required: Waived on patient request Delivery address: [address] [place] [id number] Delivery date: 10/30/24 Questions or concerns for the pharmacist?: No Did you have any side effects believed to be related to this medication, that resulted in hospitalization?: No Current Outpatient Medications on File Prior to Visit Medication Sig letrozole (FEMARA) 2.5 mg tablet TAKE 1 TABLET BY MOUTH EVERY DAY PENICILLIN V POTASSIUM ORAL Take by mouth. Ribociclib 400 mg/day (200 mg X 2) tablets (KISQALI) Take 2 tablets (400 mg) by mouth once daily for 21 days. Then take a 7-day rest period to complete a 28-day treatment cycle. Discard after 60 days from fill date. NAPROXEN ORAL Take by mouth two times [...] times a day. No current facility-administered medications on file prior to visit. [facility] [place] CLINICAL ASSESSMENT - HEMATOLOGY ONCOLOGY V6: Assessment to use: Refill Date of influenza vaccination reminder: 08/28/2024 Date of most recent vaccination assessment: 08/28/2024 Treatment Plan Information: Diagnosis: T3, N3, M0, invasive lobular carcinoma, grade 2, ER 80%, MT 5% and HER2/akash negative, IHC 0 Previous [...] available Estimated Start Date Info: Per Dr. Neri's discretion Est. Estimated Treatment Duration: 3 years Shanel Oropeza documented in this encounter [facility] 10-26-2024 Note [facility] 10-16-2024 Telephone encounter Note Received forms from [employer] compression therapy to sign last page of treatment and 10/02 OV notes [facility] Neri signed treatment notes but not OV notes as they are electronically signed as his OV note. Faxed as directed to [phone] ph: [phone]-left message that forms have been completed [facility] 10-16-2024 Miscellaneous Notes Received forms from [employer] compression therapy to sign last page of treatment and 10/02 OV notes [facility]-DR Neri signed treatment notes but not OV notes as they are electronically signed as his OV note. Faxed as directed to [phone] ph: [phone]-left message that forms have been completed documented in this encounter [facility] 10-15-2024 Note [facility] 10-15-2024 History of Presen t illness Narrative General Surgery Consultation Note Mrs. Caputo is a 68F who presents for initial surgical consultation. Consult scheduled for cutaneous abscess of groin . Does endorse history of abscess in the past. However, patient denies any issues with abscess at present or recently. Denies fevers, skin erythema, drainage. She says she has presented to clinic today for evaluation of excess skin at her previous left mastectomy site. Patient with past medical history of left breast cancer invasive lobular carcinoma pT3 N3 M0 s/p left mastectomy left axillary sentinel lymph node biopsy followed by formal left axillary lymph node dissection with lymphatic reconstruction. Patient says that since her axillary lymph node dissection she has had excess skin and soft tissue at the lateral margin of her mastectomy incision under her axilla. This area frequently rubs up against her clothing and can become quite irritated. She is interested in surgical correction PAST MEDICAL HISTORY Diagnosis Date Atrial fibrillation [...] HISTORY OF Bilateral total knee arthroplasty PORT Social History Tobacco Use Smoking status: Never [...] No Family History Strabismus No Family History REVIEW OF SYSTEMS: All other systems reviewed and negative. PHYSICAL EXAMINATION: General Appearance: Well appearing, alert, in no acute distress, well-hydrated, well nourished.. Skin: Well-healed left mastectomy scar. Over the lateral margin of the scar there is some excess skin and soft tissue causing protrusion/puckering . No overlying skin changes or cellulitis. Head: Normocephalic Eyes: Anicteric sclera Neck: Supple Lungs: Unlabored on room air. Abdomen: Normal abdominal exam. Extremities: No deformities, edema, skin discoloration, clubbing or cyanosis. Impression: Minal Caputo is a 68F with past medical history of left breast cancer invasive lobular carcinoma pT3 N3 M0 s/p left mastectomy left axillary sentinel lymph node biopsy followed by formal left axillary lymph node dissection with lymphatic reconstruction. Patient with excess skin and soft tissue over the lateral aspect of her previous mastectomy incision. Plan: -Referral to plastic surgery placed for possible excess skin excision. cc: Referring provider Mitch Neri [address] [place], [place] [id number] Sierra Atkins MD documented in this encounter [facility] 10-15-2024 Instructions Mio Wells A - 10/15/2024 9:[address] Atkins has ordered a consult with plastic surgery. The number to call is [phone]. documented in this encounter [facility] 10-13-2024 Telephone encounter Note Faxed last OV Dr Neri 10/02/24 as directed. [facility] 10-13-2024 Miscellaneous Notes Faxed last OV Dr Neri 10/02/24 as directed. [facility]eri [facility] today with concern regarding Orders for a Lymphoedema Compression Pump. They are trying to assist patient getting a pump. They would need OV notes. Please advise if these can be faxed to [phone]. Patient has been identified by name and birthdate. Duration of symptoms: N/A Person calling: Jeancarlos Call back at: [phone] Ex 183 Was an appointment scheduled: No Closing statement: Results or non-symptom based questions: Thank you for calling [facility], your call will be returned within the next business day. Elida Bowens documented in this encounter [facility] 10-13-2024 Telephone encounter Note [facility] Mitch Neri [facility] today with concern regarding Orders for a Lymphoedema Compression Pump. They are trying to assist patient getting a pump. They would need OV notes. Please advise if these can be faxed to [phone]. Patient has been identified by name and birthdate. Duration of symptoms: N/A Person calling: Jeancarlos Call back at: [phone] Ex 183 Was an appointment scheduled: No Closing statement: Results or non-symptom based questions: Thank you for calling [facility], your call will be returned within the next business day. Elida Bowens [facility] 10-02-2024 Instructions Mara Solano LPN - 10/02/2024 1:52 PM EST Schedule consult with plastic surgery Mammogram December 2024 Schedule consult w/ nephrology F/U with Dr. Neri 12/30/24, port draw @ [facility] prior Cancel zometa today documented in this encounter [facility] 10-02-2024 Note [facility] 10-02-2024 History of Presen t illness Narrative PATIENT NAME: Minal Fentontrevonlucie CLINIC NO.: [id number] ATTENDING PHYSICIAN: Mitch Neri MD DATE OF [...] cm, LVI present, Margins Negative, ER 80%, MT 5% and Her-2 IHC-0 Germline testing 07/2023: A variant of uncertain significance (VUS) was detected in BAP1 (c.1421C>T). ECHO 08/2023: EF 55-60% and normal wall motion Bone mineral density September 2024 normal Treatment History: July 29, 2023: Left mastectomy [...] 04/21/2024-next September 2024, held secondary to renal function 7. Arimdex 04/2024- Stopped 07/2024 due to arthralgia 8. Verzinio End of April 2024- required dose reduction due to GI AE.-- 100 mg PO BID- 05/2024- Stopped 06/2024 due to diarrhea. 9. Ribociclib 400 mg 21 out of 28 days started June 2024 10. Letrozole 08/2024 after resolution of arthralgia from the Arimidex. HPI: Minal Caputo is a 68 year [...] grade 1 invasive lobular carcinoma ER 80%, MT 5% and HER2/akash with IHC 0. A [...] elected to transfer her care to the [facility] and underwent a L breast mastectomy [...] any abnormalities. Interval History: She states that her arthralgia from the Arimidex has improved. Denies nausea vomiting fevers or chills. She has been eating well. She is also been having some problems with a hiatal hernia. She continues to see physical therapy for her left arm lymphedema. They are also considering a potential pump placement. PAST MEDICAL HISTORY Diagnosis Date Atrial fibrillation [...] of hands/feet. No weakness. PHYSICAL EXAMINATION: BP 174/69[Bp recheck[ Pulse 83 Temp (Src) 97 (Temporal Artery) Resp 18 Ht 5' 2 (1.58m) Wt 284 lb 9.8 oz (129.1kg) SpO2 99% LMP 08/26/2006 BMI 52.04 kg/(m^2). Wt 125.2 kg (276 lb 0.3 [...] : Deferred LABS: Glucose (mg/dL) Date Value 09/11/2024 173 04/02/2018 129 Potassium (mmol/L) Date Value 09/11/2024 4.8 04/02/2018 4.1 Sodium (mmol/L) Date Value 09/11/2024 140 04/02/2018 136 Chloride (mmol/L) Date Value 09/11/2024 102 04/02/2018 100 CO2 (mmol/L) Date Value 09/11/2024 22 04/02/2018 25 Creatinine (mg/dL) Date Value 09/11/2024 1.74 04/02/2018 0.83 BUN (mg/dL) Date Value 09/11/2024 25 04/02/2018 16 Anion Gap (mmol/L) Date Value 09/11/2024 16 04/02/2018 11 Calcium (mg/dL) Date Value 04/02/2018 8.2 Calcium, Total (mg/dL) Date Value 09/11/2024 9.3 Protein, Total (g/dL) Date Value 09/11/2024 6.7 03/19/2018 6.8 Albumin (g/dL) Date Value 09/11/2024 3.9 03/19/2018 4.2 Bilirubin, Total (mg/dL) Date Value 09/11/2024 0.5 03/19/2018 0.5 Alkaline Phosphatase (U/L) Date Value 09/11/2024 94 03/19/2018 107 AST (U/L) Date Value 09/11/2024 22 03/19/2018 27 ALT (U/L) Date Value 09/11/2024 15 03/19/2018 38 WBC Date Value Ref Range Status 09/11/2024 6.04 3.70 - 11.00 k/uL Final RBC Date Value Ref Range Status 09/11/2024 3.67 (L) 3.90 - 5.20 m/uL Final Hemoglobin Date Value Ref Range Status 09/11/2024 11.6 11.5 - 15.5 g/dL Final Hematocrit Date Value Ref Range Status 09/11/2024 35.4 (L) 36.0 - 46.0 % Final MCV Date Value Ref Range Status 09/11/2024 96.5 80.0 - 100.0 fL Final MCH Date Value Ref Range Status 09/11/2024 31.6 26.0 - 34.0 pg Final MCHC Date Value Ref Range Status 09/11/2024 32.8 30.5 - 36.0 g/dL Final RDW-CV Date Value Ref Range Status 09/11/2024 13.6 11.5 - 15.0 % Final Platelet Count Date Value Ref Range Status 09/11/2024 368 150 - 400 k/uL Final MPV Date Value Ref Range Status 09/11/2024 8.8 (L) 9.0 - 12.7 fL Final Abs Neut Date Value Ref Range Status 09/11/2024 4.37 1.45 - 7.50 k/uL Final Lymphocytes % Date Value Ref Range Status 09/11/2024 13.2 % Final Abs Lymph Date Value Ref Range Status 09/11/2024 0.80 (L) 1.00 - 4.00 k/uL Final Monocytes % Date Value Ref Range Status 09/11/2024 4.8 % Final Abs Monroe Date Value Ref Range Status 09/11/2024 0.29 <0.87 k/uL Final Eosin% Date Value Ref Range Status 11/05/2023 0.9 % Final Abs Eosin Date Value Ref Range Status 09/11/2024 0.53 (H) <0.46 k/uL Final Basophils % Date Value Ref Range Status 09/11/2024 0.7 % Final Abs Baso Date Value Ref Range Status 09/11/2024 0.04 <0.11 k/uL Final PATH: L Breast [...] Examined (sentinel and non-sentinel) 4 Number of Randolph Nodes Examined 4 pTNM CLASSIFICATION (AJCC 8th [...] invasive lobular carcinoma, grade 2, ER 80%, MT 5% and HER2/akash negative, IHC 0, cancer [...] symptoms almost nearly resolved and after lengthy discussion she started letrozole August 2024, tolerating well thus [...] inhibitor because of her high normal volume. Her Verzenio was stopped in June 2024 and she was switched to Ribociclib. EKG monitoring did not reveal any QTc prolongation. Acute diverticulitis-patient has had diverticulitis in the past improved on antibiotics. 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 PE Completed 3 months of NOAC and was felt to be provoked. CTA 01/2024 was negative Monitor creatinine-will refer to nephrology. Follow-up on LFTs-resolved Continue PT for lymphedema -will also refer to plastic surgery for extra tissue under the axilla and also discussion of other options for her lymphedema Started Zometa q 6 months 04/21/2024-will hold the September 2024 dose till patient sees nephrology. Will see patient back in 3 months. Will also schedule for a follow-up right breast mammogram.. Thank you for the kind referral. If there are any questions and or concerns please do not hesitate to contact me at [phone]. Mitch Neri MD Hematology/Medical Oncology [facility] Francine Hightower spent a total of 30 minutes on the date of the service which included preparing to see the patient, [id number] patient care, completing clinical documentation, obtaining and/or reviewing separately obtained history, performing a medically appropriate examination, and counseling and educating the patient/family/caregiver. CC: Sunny Jenkins MD documented in this encounter [facility] 09-29-2024 Note HNO ID: [id number] Author: HANSA ARORA MA Service: ? Author Type: Supervisor Process Testing Type: Progress Notes Filed: 09/29/2024 09:23 Note Text: Patient identified by 2 identifiers. EKG performed as ordered. Hansa Arora MA [facility] 09-29-2024 History of Presen t illness Narrative Patient identified by 2 identifiers. EKG performed as ordered. Hansa Arora MA documented in this encounter [facility] 09-21-2024 History of Presen t illness Narrative [facility] Medication(s): Kisqali Patient's current medication list and adherence status [...] progressing towards achieving therapeutic goals based on medication-specific laboratory parameters, disease state markers and outcomes. Office/provider notes have been reviewed prior to dispensing the medication. Industrial Analyst Assessment Patient confirmed: Yes Med/dose confirmed: Yes Supplies needed: No supplies needed Missed doses: No Estimated days supply on hand: 7 Next cycle/dose due: 10/05/24 Copay amount: 0 Payment confirmed: Yes Delivery method: FedEx Signature required: Waived on patient request Delivery address: [address] [place], [place] [address]cortney Mayen [facility] [address] Delivery date: 10/02/24 Questions or concerns for the pharmacist?: Yes Patient questions/concerns: Other (see text box below) Other questions/concerns: started Kisqali on Saturday09/07/2024 Did you have any side effects believed to be related to this medication, that resulted in hospitalization?: No Current Outpatient Medications on File Prior to Visit Medication Sig anastrozole (ARIMIDEX) 1 mg tablet TAKE 1 TABLET BY MOUTH EVERY DAY Ribociclib 400 mg/day (200 mg X 2) tablets (KISQALI) Take 2 tablets (400 mg) by mouth once daily for 21 days. Then take a 7-day rest period to complete a 28-day treatment cycle. Discard after 60 days from fill date. prednisoLONE acetate (PRED FORTE) 1 % ophthalmic suspension Use 1 Drop in the right eye as directed. Starting TOMORROW place one drop in operative eye four times a day. prednisoLONE acetate (PRED FORTE) 1 % ophthalmic suspension Use 1 Drop in the left eye as directed. Starting TOMORROW place one drop in operative eye four times a day. NAPROXEN ORAL Take by [...] times a day. No current facility-administered medications on file prior to visit. [facility] [place] CLINICAL ASSESSMENT - HEMATOLOGY ONCOLOGY V6: Assessment to use: Refill Date of influenza vaccination reminder: 08/28/2024 Date of most recent vaccination assessment: 08/28/2024 Treatment Plan Information: Diagnosis: T3, N3, M0, invasive lobular carcinoma, grade 2, ER 80%, MT 5% and HER2/akash negative, IHC 0 Previous treatment(s): - L breast mastectomy - DDAC (2 cycles c/b neutropenic fever) - Taxol (2 weeks c/b infection and diverticulitis) - RT (03/03/24-03/24/24) - Verzenio (04/2024 - 05/2024 d/t diarrhea) - Arimidex (04/2024 - current) Treatment Plan: Ribociclib + Anastrozole Medication: Dalia (ribociclib) Sig: Take 2 tablets (400 mg) [...] available Estimated Start Date Info: Per Dr. Neri's discretion Est. Estimated Treatment Duration: 3 years Merly Caceres ([employer]) documented in this encounter [facility] 09-21-2024 Note [facility] 09-14-2024 Telephone encounter Note ORAL ANTI-CANCER AGENTS FOLLOW-UP PHONE CALL/VISIT Patient identified by name and date of . YES Patient is on cycle 1, week 1, day 7 of Kisqali for Breast Cancer. SYMPTOM ASSESSMENT Headache: No Visual Changes: No Dizziness: No Do you have any periods of confusion? No Mood changes: No Mouth or throat pain: No Appetite: no changes in appetite, appetite good Taste changes: No Nausea: No Vomiting: No Heartburn: No. Weight gain/loss: No Episodes of palpitations/chest discomfort/pressure/pain No Shortness of breath: No Cough: No Diarrhea: no Constipation: patient reported her stools are hard sometimes, aware she should keep hydrated and could use a stool softener if needed Bladder/Urinary Changes: None Pain: No=0 (pain 0 on a scale of 0-10). Fever: No Chills: No Cold sensitivity: No Numbness/weakness: No Edema: No Skin changes: No Itching: No Yellowing of skin or eyes: No Musculoskeletal/joint changes/issues No Bleeding issues: No Activity Level (0-100%): patient reports she is feeling good, much better on this medication Do you need to take naps? Patient reported she hasn't slept well in years but she does sleep Does the patient need interventions or same day appointment:No ADDITIONAL FOLLOW UP: The next office visit with Dr. Neri is due on: October 02, 2024 at 2pm and was scheduled Yes, reinforced date and time, along with Zometa treatment The following lab tests are due: Pt reminded she has EKG 09/29/24 and she reported she has been getting her labwork as she is supposed to Verified patient is aware of next appointment in the cancer center: Yes. Verified patient verbalized how to correctly refill the oral agent prescription. Reviewed with the patient the speciality pharmacy is supplying her medication Does the patient have any financial difficulties affording this medication? Patient reported her speciality pharmacy is handling her meidcation Patient verbalizes understanding of when to seek Medical Attention? YES Patient verbalizes understanding of after-hours and weekend phone number? YES Patient verbalized importance of medication compliance in taking the oral agent as prescribed. Patient instructed to call if unable to comply. Torri Ibarra RN [facility] 09-14-2024 Miscellaneous Notes ORAL ANTI-CANCER AGENTS FOLLOW-UP PHONE CALL/VISIT Patient identified by name and date of . YES Patient is on cycle 1, week 1, day 7 of Kisqali for Breast Cancer. SYMPTOM ASSESSMENT Headache: No Visual Changes: No Dizziness: No Do you have any periods of confusion? No Mood changes: No Mouth or throat pain: No Appetite: no changes in appetite, appetite good Taste changes: No Nausea: No Vomiting: No Heartburn: No. Weight gain/loss: No Episodes of palpitations/chest discomfort/pressure/pain No Shortness of breath: No Cough: No Diarrhea: no Constipation: patient reported her stools are hard sometimes, aware she should keep hydrated and could use a stool softener if needed Bladder/Urinary Changes: None Pain: No=0 (pain 0 on a scale of 0-10). Fever: No Chills: No Cold sensitivity: No Numbness/weakness: No Edema: No Skin changes: No Itching: No Yellowing of skin or eyes: No Musculoskeletal/joint changes/issues No Bleeding issues: No Activity Level (0-100%): patient reports she is feeling good, much better on this medication Do you need to take naps? Patient reported she hasn't slept well in years but she does sleep Does the patient need interventions or same day appointment:No ADDITIONAL FOLLOW UP: The next office visit with Dr. Neri is due on: October 02, 2024 at 2pm and was scheduled Yes, reinforced date and time, along with Zometa treatment The following lab tests are due: Pt reminded she has EKG 09/29/24 and she reported she has been getting her labwork as she is supposed to Verified patient is aware of next appointment in the cancer center: Yes. Verified patient verbalized how to correctly refill the oral agent prescription. Reviewed with the patient the speciality pharmacy is supplying her medication Does the patient have any financial difficulties affording this medication? Patient reported her speciality pharmacy is handling her meidcation Patient verbalizes understanding of when to seek Medical Attention? YES Patient verbalizes understanding of after-hours and weekend phone number? YES Patient verbalized importance of medication compliance in taking the oral agent as prescribed. Patient instructed to call if unable to comply. Torri Ibarra RN documented in this encounter [facility] 09-14-2024 Telephone encounter Note I called and spoke to Minal and she states she is continuing care and treatment with Dr. Neri monthly. She denies skin changes of the previously treated left chest wall. She continues therapy with the lymphedema clinic. She would like to continue following with Dr. Neri and will notify our office with any further questions and/or concerns regarding radiation therapy. Windy Jiang RN [facility] 09-14-2024 Miscellaneous Notes I called and spoke to Minal and she states she is continuing care and treatment with Dr. Neri monthly. She denies skin changes of the previously treated left chest wall. She continues therapy with the lymphedema clinic. She would like to continue following with Dr. Neri and will notify our office with any further questions and/or concerns regarding radiation therapy. Windy Jiang RN documented in this encounter [facility] 09-02-2024 Telephone encounter Note Spoke with patient regarding provider message-voices understanding and appreciative of call. [facility] 09-02-2024 Miscellaneous Notes Spoke with patient regarding provider message-voices understanding and appreciative of call. ----- Message from Mitch Neri MD sent at 09/02/2024 4:39 PM EST ----- Call with negaitve cytology documented in this encounter [facility] 09-02-2024 Telephone encounter Note ----- Message from Mitch Neri MD sent at 09/02/2024 4:39 PM EST ----- Call with negaitve cytology [facility] 09-01-2024 Note [facility] 09-01-2024 History of Presen t illness Narrative ORAL ANTI-CANCER AGENTS EDUCATION patient called today for oral medication education of kisqali for Breast Cancer Ribociclib 400 mg/day (200 mg X 2) tablets (KISQALI) 42 tablet 3 07/16/2024 -- Sig: Take 2 tablets (400 mg) by mouth once daily for 21 days. Then take a 7-day rest period to complete a 28-day treatment Anticipated/Scheduled start date: 1/13/25 READINESS TO LEARN Cognitive Ability: Alert and oriented Motivation to Learn: Interested Family Support: Unable to assess - Family not present Instruction Provided to: Patient Patient learns best by: Multiple Methods Factors affecting learning: None Physical limitation affecting [...] effects and how to manage them. Yes 6.)Verified patient understands handling precautions of oral [...] provide reinforcement of teaching topics as needed. EKG 07/17/24 will need repeat in September 2024 Has imodium at home Pt to have labs done this week prior to start and again on week off of medication 09/01/24 thyroid biopsy 09/[address] Neri-reviewed with provider in office-ok to move 3 weeks due to start date Cycle #1 09/07-10/01 10/[address] Neri with labs day prior Nia Snider RN documented in this encounter [facility] 08-12-2024 Note HNO ID: [id number] Author: BARBARA PHELAN MA Service: ? Author Type: Supervisor Process Testing Type: Progress Notes Filed: 08/12/2024 13:14 Note Text: Patient appt canceled Patient scheduled incorrectly. Rescheduled with IR [facility] 08-12-2024 History of Presen t illness Narrative Patient appt canceled Patient scheduled incorrectly. Rescheduled with IR documented in this encounter [facility] 07-30-2024 Telephone encounter Note Called and spoke to patient. Scheduled for repeat FNA in [place] with Dr. Mcgregor for 08/12/24 [facility] 07-30-2024 Miscellaneous Notes Called and spoke to patient. Scheduled for repeat FNA in [place] with Dr. Mcgregor for 08/12/24 Called and spoke with patient Below msg reviewed with patient Please contact pt to schedule Thanks The FNA result was inconclusive. Repeat FNA in IR after about 1 month is recommended. Order placed. Please assist patient to schedule. FINAL DIAGNOSIS A - Thyroid, Right Lobe, Fine Needle Aspirate - Mid Non-diagnostic aspirate sample. Insufficient thyroid follicular epithelial cells present for evaluation. FNA done on 07/15 documented in this encounter [facility] 07-24-2024 Telephone encounter Note Called and spoke with patient Below msg reviewed with patient Please contact pt to schedule Thanks [facility] 07-24-2024 Telephone encounter Note The FNA result was inconclusive. Repeat FNA in IR after about 1 month is recommended. Order placed. Please assist patient to schedule. [facility] 07-20-2024 Telephone encounter Note FINAL DIAGNOSIS A - Thyroid, Right Lobe, Fine Needle Aspirate - Mid Non-diagnostic aspirate sample. Insufficient thyroid follicular epithelial cells present for evaluation. FNA done on 07/15 [facility] 07-17-2024 Note HNO ID: [id number] Author: LAURA LOWRY MA Service: ? Author Type: Supervisor Process Testing Type: Progress Notes Filed: 07/17/2024 10:31 Note Text: Patient identified by 2 identifiers. EKG performed as ordered. Laura Lowry MA [facility] 07-17-2024 History of Presen t illness Narrative Patient identified by 2 identifiers. EKG performed as ordered. Laura Lowry MA documented in this encounter [facility] 07-16-2024 History of Presen t illness Narrative Images from the original note were not included. [facility] received prescription(s) for Kisqali from Dr. Neri's office. Benefits investigation was conducted, indicating that a prior authorization is required by patient's insurance plan with [employer]. Encounter will be updated once prior authorization has been submitted by [facility]. Halle Serrato CPhT [facility], Oncology P: / F: documented in this encounter [facility] 07-16-2024 Note [facility] 07-16-2024 Note [facility] 07-16-2024 Note [facility] 07-16-2024 Note [facility] 07-16-2024 Note [facility] 07-16-2024 Note [facility] 07-16-2024 Note [facility] 07-16-2024 Note [facility] 07-16-2024 Note [facility] 07-16-2024 Instructions Cinthia Tim LPN - 07/16/2024 9:21 AM EST Schedule EKG wallace (francine) Schedule EKG 1 week after you start Schedule Office visit with Dr Culver in 3 weeks documented in this encounter [facility] 07-16-2024 Note [facility] 07-16-2024 History of Presen t illness Narrative PATIENT NAME: Minal Caputo CLINIC NO.: [id number] ATTENDING PHYSICIAN: Mitch Neri MD DATE OF [...] cm, LVI present, Margins Negative, ER 80%, MT 5% and Her-2 IHC-0 Germline testing 07/2023: [...] grade 1 invasive lobular carcinoma ER 80%, MT 5% and HER2/akash with IHC 0. A [...] elected to transfer her care to the [facility] and underwent a L breast mastectomy [...] Range Status 07/06/2024 4.5 % Final Abs Monroe Date Value Ref Range Status 07/06/2024 0.25 [...] Examined (sentinel and non-sentinel) 4 Number of Randolph Nodes Examined 4 pTNM CLASSIFICATION (AJCC 8th [...] invasive lobular carcinoma, grade 2, ER 80%, MT 5% and HER2/akash negative, IHC 0, cancer [...] do not hesitate to contact me at [phone]. Mitch Neri MD Hematology/Medical Oncology [facility]ightower spent a total of 30 minutes on the date of the service which included preparing to see the patient, [id number] patient care, completing clinical documentation, obtaining and/or reviewing separately obtained history, performing a medically appropriate examination, and counseling and educating the patient/family/caregiver. CC: Sunny Jenkins MD documented in this encounter [facility] 07-15-2024 Note [facility] 07-15-2024 Procedure note Associated Ord er(s): [...] the patient. Informed Consent Consent Obtained: Written [place] Protocol A moment to CARE was completed. [...] are available. Follow up with referring physician. [facility] 07-15-2024 Procedure note Associated Ord er(s): [...] the patient. Informed Consent Consent Obtained: Written [place] Protocol A moment to CARE was completed. [...] with referring physician. documented in this encounter [facility] 07-15-2024 Nurse Note UNIVERSAL PROTOCOL / [...] Plan of Care Visit completed when applicable. Barbara Phelan MA [facility] 07-15-2024 Nurse Note UNIVERSAL PROTOCOL / [...] Plan of Care Visit completed when applicable. Barbara Phelan MA documented in this encounter [facility] 07-14-2024 Note [facility] 07-14-2024 History of Presen t illness Narrative (Z98.41) Status post cataract surgery, right (primary encounter diagnosis) Comment: 4-5 weeks S/ P PEIOL OD pt happy with improved vision Plan: spec rx given warned symptoms of PCO Follow up in 12 months FULL exam here or in [place] with Dr Millan (Z98.42) Status post cataract surgery, left Comment: 4-5 weeks S/ P PEIOL Os pt reports blur in left without correction discussed cause as uncorrected astigmatism Plan: spec rx given warned symptoms of PCO Follow up in 12 months FULL exam here or in [place] with Dr Millan I have confirmed and [...] of its relevant components. Rakesh Palma, OD July 14, 2024 4:46 PM documented in this encounter [facility] 07-07-2024 Telephone encounter Note Spoke with patient to encourage po intake, stop Verzenio-pt states she has stopped last night already and feels better today-will plan on BMP lab 07/15 while at [place] appt and have results for 07/[address] Neri. [facility] 07-07-2024 Miscellaneous Notes Spoke with patient to encourage po intake, stop Verzenio-pt states she has stopped last night already and feels better today-will plan on BMP lab 07/15 while at [place] appt and have results for 07/[address] Neri. I think that she is pre-renal and I have asked her to stop the Verzinio and push fluids and check Creat next week again, I think that she is seeing me 07/16 and we can do labs then documented in this encounter [facility] 07-07-2024 Telephone encounter Note I think that she is pre-renal and I have asked her to stop the Verzinio and push fluids and check Creat next week again, I think that she is seeing me 07/16 and we can do labs then [facility] 07-01-2024 Telephone encounter Note Please see phone encounter 06/23/24 [facility] 07-01-2024 Miscellaneous Notes Please see phone encounter 06/23/24 documented in this encounter [facility] 06-23-2024 Telephone encounter Note Patient was seen by Dr. Mcgregor for thyroid nodules in April 2024. Please advise if he can place FNA order so we can schedule. Otherwise, providers are booking far out for another consult. [facility] 06-23-2024 Miscellaneous Notes Patient was seen by Dr. Mcgregor for thyroid nodules in April 2024. Please advise if he can place FNA order so we can schedule. Otherwise, providers are booking far out for another consult. Care Coordination Triage Note [facility] Situation: Results US thyroid/parathyroid Background: Disease, current [...] expecting a call. documented in this encounter [facility] 06-23-2024 Note [facility] 06-23-2024 History of Presen t illness [...] its relevant components. Rakesh Palma OD June 23, 2024 12:01 PM documented in this encounter [facility] 06-23-2024 Telephone encounter Note Care Coordination Triage Note [facility] Situation: Results US thyroid/parathyroid Background: Disease, current [...] Myers RN June 23, 2024 11:50 AM [facility] 06-23-2024 Telephone encounter Note Please schedule referral to endocrinology [facility] for biopsy of thyroid nodule found on US. Please notify patient of day/time of appointment, she is expecting a call. [facility] 06-18-2024 Note [facility] 06-18-2024 History of Presen t illness [...] and infection Follow up in 1 week ryan (Z98.42) Status post cataract surgery, left Comment: [...] its relevant components. Rakesh Palma, TRIXIE June 18, 2024 11:30 AM documented in this encounter [facility] 06-18-2024 Note [facility] 06-18-2024 History of Presen t illness [...] PATIENT PRESENTS WITH AN IMPLANTABLE OR ATTACHED MERCERIZER MACHINE OPERATOR: No RADIOLOGY DEPARTMENT: Ultrasound PERIPHERAL IV DATA: Not applicable SIGNED BY: Poonam Oglesby RDMS, RVT June 18, 2024 11:18 AM documented in this encounter [facility] 06-10-2024 Miscellaneous Notes Minal called to inform provider a new referral for core PT is needed. She stated she talked to provider about it in her appointment. documented in this encounter [facility] 06-10-2024 Telephone encounter Note Minal called to inform provider a new referral for core PT is needed. She stated she talked to provider about it in her appointment. [facility] 06-10-2024 History of Presen t illness Narrative Images from the original note were not included. [address] [place] [id number] Subjective: Minal Caputo is a 68 [...] Do you have a durable power of title attorney?: Yes Cognitive Screening Do you have trouble remembering or recalling facts or events?: No Do family members or caregivers report that you have difficulty remembering things?: No Vitals: Vitals: 06/10/24 0921 BP: 128/68 Pulse: 72 Temp: 36.8 C (98.2 F) SpO2: 98% Body mass index is 50.85 kg/m . History: Patient Active Problem List Diagnosis Date Noted Seropositive rheumatoid arthritis ([facility]) 01/28/2024 Cancer of overlapping sites of left breast ([facility]) 07/04/2023 Abnormal glucose 04/24/2023 Severely overweight 04/24/2023 Lower leg edema 04/24/2023 Chronic left hip pain 04/24/2023 Chronic generalized pain 04/24/2023 Spinal stenosis 04/02/2023 Arthritis 04/02/2023 Hypertension 04/02/2023 GERD (gastroesophageal reflux disease) 02/08/2022 Calculus of kidney 07/06/2021 Abnormal mammogram of left breast 09/12/2020 Severe obesity (BMI >= 40) ([facility]) 09/24/2019 Primary osteoarthritis of both knees 12/23/2017 Past Medical History: Diagnosis Date Allergic Arthritis Back pain Breast cancer ([facility]) 06/26/2023 COPD (chronic obstructive pulmonary disease) ([facility]) GERD (gastroesophageal reflux disease) Heart murmur History of blood clots HTN (hypertension) Hyperlipidemia Kidney stones Obesity Pneumonia Primary invasive malignant neoplasm of female breast, left ([facility]) 06/28/2023 Recurrent UTI Rheumatoid arthritis ([facility]) Scoliosis Varicella Visual impairment glasses Past Surgical [...] - 1.00 mg/dL Final METHOD TRACEABLE TO IDMD STANDARD Glucose 01/17/2024 134 (H) 65 - [...] listed below. CARE TEAM: -PCP -Oncology - [facility] - Breast Ca and Thyroid nodules - Personalized Prevention Plan Services: Specialty Evaluation Advised:N/A Preventative Programs Recommended: N/A Prevention Counseling and Education Materials:Staying Healthy: Medicare's Preventive Services (CMS) Diseases: Breast Cancer: What you need to [...] annual wellness visit, subsequent Seropositive rheumatoid arthritis ([facility]) - predniSONE 5 mg tablets,dose pack; One [...] with complicated medical history, currently following Oncology [facility] for breast cancer. She is primarily [...] and hip pain. She was unwilling to [place] referrals or consult services to consider her options. Refused any pain control medicine. Refused any mood stabilizing medicine. Ultimately settled on prednisone to help with polyarthralgia Patient will follow with Rheumatology in the near future as well to re-initiate DMARDs when safe. There are no Patient Instructions on file for this visit. SUNNY JENKINS MD 06/10/24 documented in this encounter [facility] 06-09-2024 Note [facility] 06-09-2024 History of Presen t illness [...] its relevant components. Rakesh Palma OD June 09, 2024 11:23 AM documented in this encounter [facility] 06-03-2024 Instructions Yvonne Marsh LPN - 06/03/2024 2:49 PM EDT Labs in [facility] in 1 week MD exam and labs prior to the visit in 6 weeks documented in this encounter [facility] 06-03-2024 Telephone encounter Note Faxed new verzenio rx with dose reduction along with OV notes today hem/onc for Verzenio 100mg tablet BID to [place] [facility] at fax: [phone]. [facility] 06-03-2024 Miscellaneous Notes Faxed new verzenio rx with dose reduction along with OV notes today hem/onc for Verzenio 100mg tablet BID to [place] pharmacy at fax: [phone]. documented in this encounter [facility] 06-03-2024 Note [facility] 06-03-2024 History of Presen t illness Narrative PATIENT NAME: Minal Fentontrevonlucie CLINIC NO.: [id number] ATTENDING PHYSICIAN: Mitch Neri MD DATE OF SERVICE: June 03, 2024 Some of the elements of this note have been copied from my previous progress note dated 04/21/2024. All the information has been reviewed carefully. Dear Dr. Mednoza Yang here is an update on a follow up visit on female Minal Caputo at the clinic June 03, 2024 Diagnosis: L Breast Cancer: pT3,N3,M0, Grade 2 ILC, 6.3 cm, LVI present, Margins Negative, ER 80%, MT 5% and Her-2 IHC-0 Germline testing 07/2023: [...] grade 1 invasive lobular carcinoma ER 80%, MT 5% and HER2/akash with IHC 0. A [...] elected to transfer her care to the [facility] and underwent a L breast mastectomy [...] Range Status 06/01/2024 5.5 % Final Abs Monroe Date Value Ref Range Status 06/01/2024 0.24 [...] Histologic Type Invasive lobular carcinoma Histologic Grade ([place] Histologic Score) Glandular (Acinar) / Tubular Differentiation [...] Examined (sentinel and non-sentinel) 4 Number of Randolph Nodes Examined 4 pTNM CLASSIFICATION (AJCC 8th [...] invasive lobular carcinoma, grade 2, ER 80%, MT 5% and HER2/akash negative, IHC 0, cancer [...] do not hesitate to contact me at [phone]. Mitch Neri MD Hematology/Medical Oncology [facility] I spent a total of 30 minutes on the date of the service which included preparing to see the patient, [id number] patient care, completing clinical documentation, obtaining and/or reviewing separately obtained history, performing a medically appropriate examination, and counseling and educating the patient/family/caregiver. CC: Sunny Jenkins MD documented in this encounter [facility] 06-03-2024 Note [facility] 06-03-2024 History of Presen t illness [...] its relevant components. documented in this encounter [facility] 06-03-2024 Miscellaneous Notes Patient called and left voicemail requesting a refill on metoprolol tartrate 50 mg to [facility] pharmacy in [place]. Pended in chart. documented in this encounter [facility] 06-03-2024 Telephone encounter Note Patient called and left voicemail requesting a refill on metoprolol tartrate 50 mg to [facility] pharmacy in [place]. Pended in chart. [facility] 05-19-2024 Note [facility] 05-19-2024 History of Presen t illness Narrative Confirmed Aim: [place] Patient wishes to proceed plano both eyes, understands she will need glasses for near vision. Prior Refractive surgery No Written pre-op instructions regarding eye drops and care reviewed with patient. MARIAS Valentine May 19, 2024 2:38 PM documented in this encounter [facility] 05-19-2024 History and physical note Images from the original note were not included. [facility] HISTORY AND PHYSICAL EXAMINATION SERVICE DATE: 05/19/2024 SERVICE TIME: 1:58 PM PRIMARY CARE PHYSICIAN: Sunny Jenkins MD REASON FOR VISIT: Minal Caputo is a 68 year old female who is scheduled for at the request of Dr. Johanne Fitgzerald for consultation. My final recommendation will be [...] during sleep Non-male patient STOP-Bang Score: 4 [id number] Score: Age: 65-74 Sex: female CHF history: No Hypertension history: Yes Stroke/TIA/thromboembolism history: No Vascular disease history: No Diabetes history: No [id number] Score: 3 ARISCAT Score: Age: 51-80 Preoperative [...] fevers. Neuro: No history of TIA's, stroke, MOBILE HEAVY EQUIPMENT OPERATOR tumor, impaired sensorium, hemiplegia, paraplegia or quadraplegia. No neurological symptoms or problems. Respiratory: Positive for Chronic PETERSON, Negative for Asthma, Bronchitis, Current cough, Tobacco Use, URI < 2 weeks, Wheezing Cardiovascular: Positive for HTN, HLD +Palpitations History of PE was on Eliquis for 3 months no history of angina, CHF, [place], cardiac surgery or stents. Denies rest pain, gangrene or revascularization/amputation for PVD GI: Positive for GERD, Hiatal hernia , Negative for Abdominal pain, Hepatitis, Liver disease, IBS, Colon cancer, Rectal cancer : No difficulty urinating, nocturia > 1 time per night or hematuria, Positive for history of kidney stones JEWELRY ESTIMATOR: Negative for abnormal vaginal bleeding, abnormal vaginal [...] monovalent (MODERNA) 11/23/2020 Imm Admin: COVID-19 vaccine ([email or web address]) PAST MEDICAL HISTORY Diagnosis Date Atrial fibrillation [...] fevers. Neuro: No history of TIA's, stroke, MOBILE HEAVY EQUIPMENT OPERATOR tumor, impaired sensorium, hemiplegia, paraplegia or quadraplegia. [...] or incontinence,, stones or chronic kidney disease JEWELRY ESTIMATOR: See HPI : N/A, Patient's last menstrual [...] Obtained from outside source and scanned into [facility] Date: 09/18/2023 Result: LV systolic function normal with EF 55-60% FULL REPORT UNDER CARDIAC TAB, dated 09/23/2023 All in [facility] Instructions Given to Patient: Instructions located in the after visit summary. Patient given verbal and written preop instructions and voices comprehension and compliance. SIGNATURE: Mary Lou Singh APRN.CNP PATIENT NAME: Minal Caputo DATE: 05/19/2024 TIME: 2:02 PM [facility] 05-19-2024 History and physical note Images [...] Zometa q 6 months started 04/21/2024 Arimdex 04/2024Shadi Costello 04/2024 Following with oncology Primary hypertension Assessment: [...] during sleep Non-male patient STOP-Bang Score: 4 [id number] Score: Age: 65-74 Sex: female CHF history: No Hypertension history: Yes Stroke/TIA/thromboembolism history: No Vascular disease history: No Diabetes history: No [id number] Score: 3 ARISCAT Score: Age: 51-80 Preoperative [...] fevers. Neuro: No history of TIA's, stroke, MOBILE HEAVY EQUIPMENT OPERATOR tumor, impaired sensorium, hemiplegia, paraplegia or quadraplegia. No neurological symptoms or problems. Respiratory: Positive for Chronic PETERSON, Negative for Asthma, Bronchitis, Current cough, Tobacco Use, URI < 2 weeks, Wheezing Cardiovascular: Positive for HTN, HLD +Palpitations History of PE was on Eliquis for 3 months no history of angina, CHF, [place], cardiac surgery or stents. Denies rest pain, gangrene or revascularization/amputation for PVD GI: Positive for GERD, Hiatal hernia , Negative for Abdominal pain, Hepatitis, Liver disease, IBS, Colon cancer, Rectal cancer : No difficulty urinating, nocturia > 1 time per night or hematuria, Positive for history of kidney stones JEWELRY ESTIMATOR: Negative for abnormal vaginal bleeding, abnormal vaginal [...] monovalent (MODERNA) 11/23/2020 Imm Admin: COVID-19 vaccine ([email or web address]) PAST MEDICAL HISTORY Diagnosis Date Atrial fibrillation [...] fevers. Neuro: No history of TIA's, stroke, MOBILE HEAVY EQUIPMENT OPERATOR tumor, impaired sensorium, hemiplegia, paraplegia or quadraplegia. [...] or incontinence,, stones or chronic kidney disease JEWELRY ESTIMATOR: See HPI : N/A, Patient's last menstrual [...] Obtained from outside source and scanned into [facility] Date: 09/18/2023 Result: LV systolic function normal with EF 55-60% FULL REPORT UNDER CARDIAC TAB, dated 09/23/2023 All in [facility] Instructions Given to Patient: Instructions located in the after visit summary. Patient given verbal and written preop instructions and voices comprehension and compliance. SIGNATURE: Mary Lou Singh APRN.CNP PATIENT NAME: Minal Caputo DATE: 05/19/2024 TIME: 2:02 PM documented in this encounter [facility] 05-19-2024 Instructions Mary Lou Singh APRN.CNP - 05/19/2024 2:15 PM EDT Images from the original note were not included. [facility] PATIENT PREOPERATIVE INSTRUCTIONS Johanne Fitzgerald MD has scheduled you for your procedure at this surgery center: [facility]: [phone] --[address] [place] [address]. Please read below carefully for your personalized [...] Procedures: - YOU MUST HAVE A RESPONSIBLE LITHOGRAPHIC CAMERA OPERATOR TAKE YOU HOME. A FRAME FEEDER OR DIRECTOR WATER AND WASTE SERVICES CANNOT BE MADE A RESPONSIBLE LITHOGRAPHIC CAMERA OPERATOR. - We recommend that a responsible person stays with you overnight to take care of you. - You cannot stay in a hotel alone after outpatient surgery. You will not be permitted to have your surgery, if you do not have someone to take care of you. If you already have an Advance Directive, please fax a copy to [phone] or email to for it to be [...] your chart that day. Mary Lou Singh APRN.NEY documented in this encounter [facility] 05-15-2024 Note [facility] 05-15-2024 History of Presen t illness [...] enrolled to receive free Verzenio through the [employer] Program with approval dates 05/14/24 through 08/25/24. [employer] program contact number is [phone]. The medication will now ship through their contracted dispensing pharmacy, [facility], phone number [phone]. READINESS TO LEARN Cognitive Ability: Alert and [...] pt will come after eye appt in [place] as follow up to cataract surgery (Dr. Neri aware) and have labs done in [place] day prior to appt Called [facility] pharmacy ph [phone]-rep states they just received rx from [facility] and will take 3 business days to contact patient for shipment which is done overnight once account is set up Nia Snider RN documented in this encounter [facility] 05-07-2024 Telephone encounter Note Addended office note faxed as requested. Windy Jiang RN [facility] 05-07-2024 Miscellaneous Notes Addended office note faxed as requested. Windy Jiang RN Emma, with [employer], called requesting Dr. Norman addend his last office note to include that Minal has been diagnosed with lymphedema in order for her insurance to cover the compression sleeve. Please fax the addended office note to [phone] ATTN: Emma. Thanks Windy Jiang RN documented in this encounter [facility] 05-05-2024 Note [facility] 05-05-2024 History of Presen t illness [...] Mcgregor MD, PhD documented in this encounter [facility] 04-30-2024 Telephone encounter Note Emma, with [employer], called requesting Dr. Norman byrdend his last office note to include that Minal has been diagnosed with lymphedema in order for her insurance to cover the compression sleeve. Please fax the addended office note to [phone] ATTN: Emma. Thanks Windy Jiang RN [facility] 04-22-2024 History of Presen t illness Narrative Images from the original note were not included. [facility] received prescription(s) for Verzenio from Dr. Neri's office. Benefits investigation was conducted, indicating that a prior authorization is required by patient's insurance plan with [employer]. Encounter will be updated once prior authorization has been submitted by [facility]. Halle Serrato [facility], Oncology P: / F: documented in this encounter [facility] 04-22-2024 Note [facility] 04-22-2024 Note [facility] 04-22-2024 Note [facility] 04-22-2024 Note [facility] 04-22-2024 Note [facility] 04-21-2024 Telephone encounter Note Call placed [...] with questions in between. Isadora Wright RN [facility] 04-21-2024 Miscellaneous Notes Call placed to [...] with questions in between. Isadora Wright RN documented in this encounter [facility] 04-21-2024 Instructions Yvonne Marsh LPN - 04/21/2024 10:16 AM EDT Reschedule bone density from [place] to [facility] Schedule chemo teach with Nia Sheppard Follow up with Dr. Neri in 4 weeks Labs prior documented in this encounter [facility] 04-21-2024 Note [facility] 04-21-2024 History of Presen t illness Narrative PATIENT NAME: Minal Caputo [facility] NO.: [id number] ATTENDING PHYSICIAN: Mitch Neri MD DATE OF [...] cm, LVI present, Margins Negative, ER 80%, MT 5% and Her-2 IHC-0 Germline testing 07/2023: [...] grade 1 invasive lobular carcinoma ER 80%, MT 5% and HER2/akash with IHC 0. A [...] elected to transfer her care to the [facility] and underwent a L breast mastectomy [...] Range Status 03/03/2024 8.4 % Final Abs Monroe Date Value Ref Range Status 03/03/2024 0.65 [...] Examined (sentinel and non-sentinel) 4 Number of Randolph Nodes Examined 4 pTNM CLASSIFICATION (AJCC 8th [...] invasive lobular carcinoma, grade 2, ER 80%, MT 5% and HER2/akash negative, IHC 0, cancer [...] yet. Will try to schedule this at [facility] for her Will schedule patient for a [...] 4 weeks for follow up and arrange verzinio teach as well. Thank you for the kind referral. If there are any questions and or concerns please do not hesitate to contact me at [phone]. Mitch Neri MD Hematology/Medical Oncology [facility] spent a total of 30 minutes on the date of the service which included preparing to see the patient, [id number] patient care, completing clinical documentation, obtaining and/or reviewing separately obtained history, performing a medically appropriate examination, and counseling and educating the patient/family/caregiver. CC: Sunny Jenkins MD documented in this encounter [facility] 04-21-2024 Note HNO ID: [id number] Author: RANDELL BURNETT MA Service: ? Author Type: Supervisor Process Testing Type: Progress Notes Filed: 04/21/2024 10:20 Note Text: [facility] 04-13-2024 History of Presen t illness Narrative [address] [place] [id number] Patient: Minal Caputo Date of : 1955 Encounter Date: 04/13/2024 SUBJECTIVE: Chief Complaint: Chief Complaint Patient presents with Results Patient ID: Minal Caputo is a 68 y.o. female. Has a plan 68-year-old female has complicated past medical history History of breast cancer status post resection with lymphadenopathy considered to be in remission received chemotherapy and radiation for suppression. Unfortunately developed pulmonary embolism during that time was on Eliquis for 3 months. Followed at [facility], repeat CT angiogram of chest completed ruled out any pulmonary embolism being pleasant, Eliquis was discontinued. She has recently discontinued any chemotherapy and radiation therapy due to poor tolerance as of 3 weeks ago. Continues to have hip pain and joint pain and therefore requesting refill of her naproxen. Recommended after reestablish with her slabber light to consider re-initiation of methotrexate. Otherwise no acute or new symptoms to share. The following portions of the patient's history were reviewed and updated as appropriate: allergies, current medications, past family history, past medical history, past social history, past surgical history and problem list. PHYSICAL EXAMINATION: Physical Exam Constitutional: Appearance: She is well-developed. She is not ill-appearing. HENT: Head: Normocephalic and atraumatic. Nose: Nose normal. Eyes: General: No scleral icterus. Extraocular Movements: Extraocular movements intact. Pupils: Pupils are equal, round, and reactive to light. Musculoskeletal: Cervical back: Normal range of motion. Neurological: Mental Status: She is alert and oriented to person, place, and time. Psychiatric: Mood and Affect: Mood normal. Behavior: Behavior normal. Thought Content: Thought content normal. Judgment: Judgment normal. ASSESSMENT/PLAN: Minal was seen today for results. Diagnoses and all orders for this visit: Seropositive rheumatoid arthritis ([facility]) Other acute pulmonary embolism without acute cor pulmonale ([facility]) Edema, unspecified type Hypertension, unspecified type Severe obesity (BMI >= 40) ([facility]) Cancer of overlapping sites of left breast ([facility]) Lower leg edema Extensive review of medical history, patient is progressing well, Off completed the Eliquis dosing, CT angiogram chest ruled out any pulmonary embolism burden. No longer on radiation therapy as of 3 weeks ago -last chemotherapy proximally 3 months ago Follows Oncology team for routine screenings, next PET scan in August. Did have multiple concerns regarding her leg edema, appears to be deconditioning and poor ambulation, compression socks and ambulation, leg elevation and lifestyle modifications were shared including decreasing sodium intake and increasing protein intake. Ongoing/chronic hip pain okay to continue naproxen, plan to reestablish with Rheumatology in re-initiate methotrexate. Video Visit via Real-time Synchronous Audiovisual Provider Location: [facility] [address] [place] [phone] Patient Location: Patient's home Video Visit Consent Statement: I discussed risks, benefits, and alternatives of a real-time synchronous audiovisual consultation with the patient (and any accompanying persons) including the risks that the patient's personal health details and medical records will be discussed over real-time, synchronous, interactive video/audio/telecommunication technology, the visit will not be recorded without the express consent of both the provider and the patient, and that there are some limitations compared to [id number] evaluations. The patient consented to the presence of additional virtual and/or in-person participants. We elected to proceed. SUNNY JENKINS MD Family Medicine Physician [facility] 04/13/24 This note was completed with voice recognition software. The document was reviewed for errors however some may still be present. Please do not hesitate to contact/Epic msg the author to verify any questions/concerns. documented in this encounter [facility] 03-24-2024 History of Presen t illness Narrative [facility] Radiation Oncology Department RADIATION ONCOLOGY - COMPLETION NOTE PATIENT: MINAL CAPUTO: 1955 DATES OF TREATMENT: 03/03/2024 to 03/24/24 DIAGNOSIS: Ms. Caputo is a 68-year-old woman with locally advanced breast cancer, [id number], arising from the left breast status post [...] Staff Physician Josef Austin M.D. / WST 8/08/736337:56 AM Electronically Signed cc: Mitch Neri MD ([facility]) Sunny Jenkins MD [address] [facility] [id number] [address] documented in this encounter [facility] 03-23-2024 Note Date of Procedure 03/23/2024. Industrial Analyst Information Pin Setter: MARYANNE. Difficult saving and sending . Interpretation Right Eye Normal foveal contour. Left Eye Normal foveal contour. [facility] 03-23-2024 Note Date of Procedure 03/23/2024. Interval Change Right Eye Intial . Left Eye Intial . [facility] 03-23-2024 History of Presen t illness Narrative [...] as other activities of daily living. Minal Campos Patito has confirmed that she is no longer [...] with lens implantation were discussed with Minal Campos Nessalucie in detail. she appeared to understand and asked that I proceed with plans for surgery. Johanne Fitzgerald MD March 23, 2024 documented in this encounter [facility] 03-19-2024 History of Presen t illness Narrative Radiation Oncology - On Treatment Review (OTR) Note PATIENT NAME: Minal Caputo PATIENT Josef Austin MD documented in this encounter [facility] 03-11-2024 History of Presen t illness Narrative RADIATION ONCOLOGY- ON TREATMENT REVIEW (OTR) NOTE PATIENT NAME: Minal Caputo PATIENT Signed by: Josef Austin MD documented in this encounter [facility] 03-11-2024 Nurse Note Status: Post-menopausal. [facility] 03-11-2024 Nurse Note Status: Post-menopausal. documented in this encounter [facility] 03-05-2024 Telephone encounter Note Patient called back and is scheduled per below [facility] 03-05-2024 Miscellaneous Notes Patient called back and is scheduled per below LVM/LMC to schedule FU in [address] Neri and Andres, and then a Bone Density Scan. Images from the original note were not included. Swapna: Please contact patient to schedule. Thank you! Nery Simeon documented in this encounter [facility] 03-04-2024 Telephone encounter Note Care Coordination Handoff Report [facility] Situation: Patient is transferring her full care from Dr. Neri in [place] to [place] Next Appointment scheduled: 04/21/24 Background: Diagnosis: Breast Cancer Treatment Regimen (refer to [place] Plan) currently receiving radiation therapy. Received 2 cycles of AC and 2 treatments of Taxol. She did not tolerate treatment very well and they were very inconsistent. Assessment: Ambulation: with walker Patient Education Completed: yes Recommendations: Special Considerations: pt's last treatment was 12/31/23 and currently receiving radiation. Pt is considered high risk for recurrence. [facility] name/pager/phone number: Yvonne [phone] Yvonne Baumann RN [facility] Work Phone: 03-04-2024 Miscellaneous Notes Care Coordination Handoff Report [facility] Situation: Patient is transferring her full care from Dr. Neri in [place] to [place] Next Appointment scheduled: 04/21/24 Background: Diagnosis: Breast Cancer Treatment Regimen (refer to [place] Plan) currently receiving radiation therapy. Received 2 cycles of AC and 2 treatments of Taxol. She did not tolerate treatment very well and they were very inconsistent. Assessment: Ambulation: with walker Patient Education Completed: yes Recommendations: Special Considerations: pt's last treatment was 12/31/23 and currently receiving radiation. Pt is considered high risk for recurrence. [facility] name/pager/phone number: Yvonne [phone] Yvonne Baumann RN documented in this encounter [facility] 03-04-2024 Telephone encounter Note LVM/LMC to schedule FU in [address] Karamlou and Zometa, and then a Bone Density Scan. [facility] 03-03-2024 Telephone encounter Note Images from the original note were not included. [place]: Please contact patient to schedule. Thank you! Nery Simeon [facility] 03-03-2024 Instructions Mitch Neri MD - [...] usual activities immediately. documented in this encounter [facility] 03-03-2024 History of Presen t illness Narrative [id number] ATTENDING PHYSICIAN: Mitch Neri MD DATE OF [...] cm, LVI present, Margins Negative, ER 80%, MT 5% and Her-2 IHC-0 Germline testing 07/2023: [...] grade 1 invasive lobular carcinoma ER 80%, MT 5% and HER2/akash with IHC 0. A [...] elected to transfer her care to the [facility] and underwent a L breast mastectomy [...] Range Status 03/03/2024 8.4 % Final Abs Monroe Date Value Ref Range Status 03/03/2024 0.65 [...] Histologic Type Invasive lobular carcinoma Histologic Grade ([place] Histologic Score) Glandular ([facility]cinar) / Tubular Differentiation [...] Examined (sentinel and non-sentinel) 4 Number of Randolph Nodes Examined 4 pTNM CLASSIFICATION (AJCC 8th [...] invasive lobular carcinoma, grade 2, ER 80%, MT 5% and HER2/akash negative, IHC 0, cancer [...] 2024 and has elected to follow at [facility] for radiation rather than closer to [...] do not hesitate to contact me at [phone]. Mitch Neri MD Hematology/Medical Oncology [facility] [place] I spent a total of 30 minutes on the date of the service which included preparing to see the patient, [id number] patient care, completing clinical documentation, obtaining and/or reviewing separately obtained history, performing a medically appropriate examination, and counseling and educating the patient/family/caregiver. CC: Sunny Jenkins MD documented in this encounter [facility] 02-13-2024 Telephone encounter Note Sent information over for emerald. Will call to check on it. [facility] 02-13-2024 Miscellaneous Notes Sent information over for emerald. Will call to check on it. Minal called stating she and Dr. Austin discussed referral to the lymphedema clinic. She would like the appointment scheduled at [facility]. She provided their fax [phone]. Dr. Austin order is pending your approval. Yvonne will you please schedule per patient request. She does prefer a.m. appointments but will take any time that is offered. Thanks Windy Jiang RN documented in this encounter [facility] 02-13-2024 Telephone encounter Note Minal called stating she and Dr. Austin discussed referral to the lymphedema clinic. She would like the appointment scheduled at [facility]. She provided their fax [phone]. Dr. Austin order is pending your approval. Yvonne will you please schedule per patient request. She does prefer a.m. appointments but will take any time that is offered. Thanks Windy Jiang RN [facility] 02-07-2024 History of Presen t illness Narrative Images from the original note were not included. Radiation Oncology - New Patient/Consult Note PATIENT NAME: Minal Caputo PATIENT Signed: Josef Austin MD I spent a total of 60 minutes on the date of the service which included preparing to see the patient, [id number] patient care, and counseling and educating the patient/family/caregiver. This document has been created with the use of voice recognition technology. It may contain inaccuracies, misspellings, inaccurate syntax or inappropriate word context that are a result of the inadequacies/shortcomings of said technology/software. documented in this encounter [facility] 02-07-2024 Nurse Note Radiation Therapy - Patient Education Note PATIENT NAME: Minal Caputo PATIENT February 07, 2024 [facility] [place]/LOCATION: [facility] READINESS TO LEARN Cognitive Ability: [...] need for social work, van service, and coppersmith helper. Patient has an Onbody or Implanted device: No Signed by: Windy Jiang RN [facility] 02-07-2024 Nurse Note Radiation Therapy - Patient Education Note PATIENT NAME: Minal Caputo PATIENT February 07, 2024 [facility] [place] CENTER READINESS TO LEARN Cognitive Ability: [...] need for social work, van service, and coppersmith helper. Patient has an Onbody or Implanted device: No Signed by: Windy Jiang RN documented in this encounter [facility] 02-07-2024 Nurse Note Pacemaker/Defibrillator?N Previous Cancer(s)?N Previous Radiation?N Lupus/Scleroderma?N On body monitoring device?N [facility] 02-07-2024 Nurse Note Pacemaker/Defibrillator?N Previous Cancer(s)?N Previous Radiation?N Lupus/Scleroderma?N On body monitoring device?N documented in this encounter [facility] 02-07-2024 History of Presen t illness Narrative MINAL CAPUTO [id number] 02/07/2024 [facility] Radiation Oncology Department SIMULATION NOTE DATE OF SIMULATION: 02/07/2024 THERAPIST: Vonda Hewitt MACHINE: [employer] DIAGNOSIS: Malignant neoplasm of [id number] AREA: left cw CONTRAST: None Consent in [...] TANYA 48:54 AM documented in this encounter [facility] 02-07-2024 History of Presen t illness Narrative MINAL CAPUTO [id number] 02/07/2024 [facility] Department of Radiation Oncology Treatment Planning [...] M.D. 44:34 AM documented in this encounter [facility] 02-06-2024 Telephone encounter Note Nel: can you get records from Vannessa Turk please Thanks Yvonne Baumann RN [facility] Work Phone: 02-06-2024 History of Presen t illness Narrative Lolis/GEORGINA receives call from patient and relays message that patient is cancelling the CT/Simulation planning session today and she does not wish to reschedule at this time RN received call from patient earlier today questioning purpose for today's appointment RN informs that this planning session is the foundation for creating a radiation treatment plan, as it is targeted and specific to each individual patient, as explained by Dr Aponte and reviewed in JEFFREY video Patient also questions when she will start treatment and is informed typical planning turnaround is 1-2 weeks to begin daily therapy documented in this encounter [facility] 02-06-2024 Miscellaneous Notes Nel: can you get records from Vannessa Turk please Thanks Yvonne Baumann RN Patient is called and scheduled for [facility]. Can you please assist in getting Minal scheduled for radiation therapy here? See note from Yvonne Baumann below. Thanks, Yessi Caban Pt calls stating she is scheduled to start radiation at [facility], however she has changed her mind and would like to come here instead. Please schedule WALLACE as back on 01/20 Dr Neri had recommended radiation therapy WALLACE. Thanks Yvonne Baumann RN documented in this encounter [facility] 02-06-2024 Telephone encounter Note Patient is called and scheduled for tomkimmie. [facility] 02-06-2024 Telephone encounter Note Can you please assist in getting Minal scheduled for radiation therapy here? See note from Yvonne Baumann below. Thanks, Yessi Caban [facility] 02-06-2024 Telephone encounter Note Pt calls stating she is scheduled to start radiation at [facility], however she has changed her mind and would like to come here instead. Please schedule WALLACE as back on 01/20 Dr Neri had recommended radiation therapy WALLACE. Thanks Yvonne Baumann RN [facility] 01-29-2024 Telephone encounter Note Called [facility] spoke with Lolis. Patient saw Dr Aponte on 01/27 and is scheduled for a SIM and follow up on 02/09. Vonda Ballesteros [facility] 01-29-2024 Miscellaneous Notes Called [facility] spoke with Lolis. Patient saw Dr Aponte on 01/27 and is scheduled for a SIM and follow up on 02/09. Vonda Arrieta Pss Records faxed to Vannessa Turk. Nel: Information ready for you. Vonda Arrieta Pss Radiation Referral [facility] Tobi Neumann/Alin: Can you please refer patient and follow up? Closer to home for patient. Thanks! Nery Simeon documented in this encounter [facility] 01-28-2024 History of Presen t illness Narrative Mnial unaccompanied for scheduled consult with Dr Aponte per referral from Dr Neri/Med Onc 07/29/2023 Left mastectomy performed at by Dr. Castillo Prior chemo consisting of 2 courses of DDAC (D/C due to s/e) and Taxol x 2 (also D/C due to s/e) Last dose of Taxol 12/31/2023 Patient advised to D/C methotrexate at this time, until 1 month after completion of radiation (last dose MTX was 01/26/2024) RN placed call to Dr Errol Barry MD/Delivery Motorcycle Driver with this update Referral to [facility] for Lymphedema and other potential issues CT/Sim scheduled for next week to plan IMRT 25 Fx Femara anticipated to after completion of radiation documented in this encounter [facility] 01-28-2024 History of Presen t illness Narrative Images from the original note were not included. [address] [place] [id number] Patient: Minal Caputo Date of : 1955 Encounter Date: 01/28/2024 SUBJECTIVE: Chief Complaint: Chief Complaint Patient presents with Follow-up PE follow up Patient ID: Minal Caputo is a 68 y.o. female. Here today for interval assessment of provoked pulmonary emboli. Notable history of breast cancer with metastatic disease, currently follows Oncology, status post left breast mastectomy. Was recently admitted and on 11/05/2023 found to have lobar and segmental pulmonary emboli in the right upper, middle and lower lobe. She has been adherent to her Eliquis therapy. Tolerating medication well, no significant shortness a breath or decreased activity tolerance. The remainder of her care has been fairly complicated requiring multiple ER and hospital admissions for urinary tract infection, lung infection/pneumonia as well as a groin abscess requiring antibiotic therapy. Of note she has had a very challenging time with her rounds of chemotherapy. Recently re-initiated paclitaxel and 12/31/2023 and shortly seen after for diverticulitis in the ER. The following portions of the patient's history were reviewed and updated as appropriate: allergies, current medications, past family history, past medical history, past social history, past surgical history and problem list. PHYSICAL EXAMINATION: Vitals: 01/28/24 0819 BP: 122/74 Pulse: 78 Temp: 36.7 C (98 F) SpO2: 93% Weight: 118.4 kg (261 lb) Height: 157.5 cm (5' 2 ) Physical Exam Vitals reviewed. Constitutional: General: She is not in acute distress. Appearance: Normal appearance. She is obese. Eyes: Extraocular Movements: Extraocular movements intact. Pupils: [...] and time. Mental status is at baseline. ASSESSMENT/PLAN: Minal was seen today for follow-up. Diagnoses and all orders for this visit: 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 - CT angiogram chest; Future - Vas venous duplex lwr bilateral; Future Seropositive rheumatoid arthritis ([facility]) Severe obesity (BMI >= 40) ([facility]) 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 ([facility]) - CT angiogram chest; Future - Vas venous duplex lwr bilateral; Future Hypertension, unspecified type - losartan (COZAAR) 50 mg tablet; Take 1 tablet (50 mg total) by mouth in the morning. - metoprolol tartrate (LOPRESSOR) 50 mg tablet; Take 1 tablet (50 mg total) by mouth in the morning and 1 tablet (50 mg total) before bedtime. Other acute pulmonary embolism without acute cor pulmonale (CMS-HCC) - Vas venous duplex lwr bilateral; Future 68-year-old female here for follow-up or pulmonary embolism. Has been adherent to her Eliquis Currently on 3 months of therapy Plan to obtain CT imaging and DVT imaging as above prior to stopping. Would class fire pulmonary embolism is provoked secondary to malignancy/breast cancer status post left mastectomy and sentinel node biopsy (currently on chemotherapy for recurrence). Briefly discuss goals of care, patient is unwilling to have a conversation and once to remain full code. Became emotional/tearful upon discussion. Medication refills provided as above Standing recurring Follow-up in 1 month offered the patient SUNNY JENKINS MD Family Medicine Physician [facility] 01/28/24 This note was completed with voice recognition software. The document was reviewed for errors however some may still be present. Please do not hesitate to contact/[facility] the author to verify any questions/concerns. documented in this encounter [facility] 01-22-2024 Telephone encounter Note Pt notified Yvonne Baumann RN [facility] Work Phone: 01-22-2024 Miscellaneous Notes Pt notified Yvonne Baumann RN ----- Message from Mitch Neri MD sent at 01/21/2024 3:35 PM EDT ----- Please let her know that LFT's are better documented in this encounter [facility] 01-22-2024 Telephone encounter Note ----- Message from Mitch Neri MD sent at 01/21/2024 3:35 PM EDT ----- Please let her know that LFT's are better [facility] 01-22-2024 Telephone encounter Note Records faxed to Vannessa Turk. [facility] 01-22-2024 Telephone encounter Note Nel: Information ready for you. Vonda Ballesteros [facility] 01-21-2024 Telephone encounter Note Radiation Referral [facility] Neumann/Alin: Can you please refer patient and follow up? Closer to home for patient. Thanks! Nery Simeon [facility] 01-21-2024 History of Presen t illness Narrative PATIENT NAME: Minal Caputo CLINIC NO.: [id number] ATTENDING PHYSICIAN: Mitch Neri MD DATE OF [...] cm, LVI present, Margins Negative, ER 80%, MT 5% and Her-2 IHC-0 Germline testing 07/2023: [...] grade 1 invasive lobular carcinoma ER 80%, MT 5% and HER2/akash with IHC 0. A [...] elected to transfer her care to the [facility] and underwent a L breast mastectomy [...] Range Status 01/21/2024 8.2 % Final Abs Monroe Date Value Ref Range Status 01/21/2024 0.52 [...] Histologic Type Invasive lobular carcinoma Histologic Grade ([place] Histologic Score) Glandular (Acinar) / Tubular Differentiation [...] Examined (sentinel and non-sentinel) 4 Number of Randolph Nodes Examined 4 pTNM CLASSIFICATION (AJCC 8th [...] invasive lobular carcinoma, grade 2, ER 80%, MT 5% and HER2/akash negative, IHC 0, cancer [...] to receive radiation closer to home in [place]. After radiation therapy we will proceed with [...] do not hesitate to contact me at [phone]. Mitch Neri MD Hematology/Medical Oncology [facility] Hightower spent a total of 30 minutes on the date of the service which included preparing to see the patient, [id number] patient care, completing clinical documentation, obtaining and/or reviewing separately obtained history, performing a medically appropriate examination, and counseling and educating the patient/family/caregiver. CC: GregorySunny loera MD documented in this encounter [facility] 01-15-2024 Telephone encounter Note Note scanned. [facility] 01-15-2024 Miscellaneous Notes Note scanned. Pt is scheduled to see Dr Baer today at 1 for abscess in her groin. Nel: can you keep an eye on records please. Thanks Yvonne Baumann RN documented in this encounter [facility] 01-15-2024 Telephone encounter Note Pt is scheduled to see Dr Baer today at 1 for abscess in her groin. Nel: can you keep an eye on records please. Thanks Yvonne Baumann RN [facility] Work Phone: 01-14-2024 History of Presen t illness Narrative PATIENT NAME: Minal Caputo CLINIC NO.: [id number] ATTENDING PHYSICIAN: Mitch Neri MD DATE OF SERVICE: January 14, 2024 (Elements copied from Dr. Neri's note dated January 07, 2024, have been reviewed and updated where appropriate, and all reflect current assessment and medical decision making during today's encounter, January 14, 2024) CC: Follow up Diagnosis: L Breast Cancer: pT3,N3,M0, Grade 2 ILC, 6.3 cm, LVI present, Margins Negative, ER 80%, MT 5% and Her-2 IHC-0 Germline testing 07/2023: [...] grade 1 invasive lobular carcinoma ER 80%, MT 5% and HER2/akash with IHC 0. A [...] elected to transfer her care to the [facility] and underwent a L breast mastectomy [...] Range Status 01/14/2024 8.0 % Final Abs Monroe Date Value Ref Range Status 01/14/2024 0.35 [...] Histologic Type Invasive lobular carcinoma Histologic Grade ([place] Histologic Score) Glandular (Acinar) / Tubular Differentiation [...] Examined (sentinel and non-sentinel) 4 Number of Randolph Nodes Examined 4 pTNM CLASSIFICATION (AJCC 8th [...] invasive lobular carcinoma, grade 2, ER 80%, MT 5% and HER2/akash negative, IHC 0, cancer [...] which included preparing to see the patient, [id number] patient care, completing clinical documentation, obtaining and/or reviewing separately obtained history, performing a medically appropriate examination, counseling and educating the patient/family/caregiver, ordering medications, tests, or procedures, communicating with other HCPs (not separately reported), independently interpreting results (not separately reported), communicating results to the patient/family/caregiver, and care coordination (not separately reported). documented in this encounter [facility] 01-09-2024 Telephone encounter Note [facility] office. Patient is scheduled to see Dr Baer on 01/14 @ 1:30. Vonda Ballesteros [facility] 01-09-2024 Miscellaneous Notes Called [facility] office. Patient is scheduled to see Dr Baer on 01/14 @ 1:30. Vonda Ballesteros Records faxed to Dr. Valenzuela. Nel: Information ready for you. Vonda Ballesteros Return for Dr. Kim and or Arturo WALLACE skin abscess Nel/Alin: Can you please refer patient and follow up? She will be a new patient. Thanks! Nery Simeon documented in this encounter [facility] 01-08-2024 Telephone encounter Note Records faxed to Dr. Valenzuela. [facility] 01-08-2024 Telephone encounter Note Nel: Information ready for you. Vonda Ballesteros [facility] 01-07-2024 Telephone encounter Note Return for Dr. Kim and or Arturo WALLACE skin abscess Nel/Alin: Can you please refer patient and follow up? She will be a new patient. Thanks! Nery Simeon [facility] 01-07-2024 History of Presen t illness Narrative PAT[facility]: [id number] ATTENDING PHYSICIAN: Mitch Neri MD DATE OF [...] cm, LVI present, Margins Negative, ER 80%, MT 5% and Her-2 IHC-0 Germline testing 07/2023: [...] grade 1 invasive lobular carcinoma ER 80%, MT 5% and HER2/akash with IHC 0. A [...] elected to transfer her care to the [facility] and underwent a L breast mastectomy [...] Range Status 01/07/2024 4.1 % Final Abs Monroe Date Value Ref Range Status 01/07/2024 0.31 [...] Examined (sentinel and non-sentinel) 4 Number of Randolph Nodes Examined 4 pTNM CLASSIFICATION (AJCC 8th [...] invasive lobular carcinoma, grade 2, ER 80%, MT 5% and HER2/akash negative, IHC 0, cancer [...] do not hesitate to contact me at [phone]. Mitch Neri MD Hematology/Medical Oncology [facility] I spent a total of 30 minutes on the date of the service which included preparing to see the patient, [id number] patient care, completing clinical documentation, obtaining and/or reviewing separately obtained history, performing a medically appropriate examination, and counseling and educating the patient/family/caregiver. CC: Sunny Jenkins MD documented in this encounter [facility] 12-31-2023 History of Presen t illness Narrative Summary: IRB [id number] Informed Consent CASE [id number] (IRB [id number]): Tissue [...] Clinical Research Nurse documented in this encounter [facility] 12-24-2023 History of Presen t illness Narrative PATIENT NAME: Minal Caputo [facility] NO.: [id number] ATTENDING PHYSICIAN: Mitch Neri MD DATE OF [...] cm, LVI present, Margins Negative, ER 80%, MT 5% and Her-2 IHC-0 Germline testing 07/2023: [...] grade 1 invasive lobular carcinoma ER 80%, MT 5% and HER2/akash with IHC 0. A [...] elected to transfer her care to the [facility] and underwent a L breast mastectomy [...] Range Status 12/24/2023 9.4 % Final Abs Monroe Date Value Ref Range Status 12/24/2023 0.57 [...] Examined (sentinel and non-sentinel) 4 Number of Randolph Nodes Examined 4 pTNM CLASSIFICATION (AJCC 8th [...] invasive lobular carcinoma, grade 2, ER 80%, MT 5% and HER2/akash negative, IHC 0, cancer [...] do not hesitate to contact me at [phone]. Mitch Neri MD Hematology/Medical Oncology [facility] I spent a total of 30 minutes on the date of the service which included preparing to see the patient, [id number] patient care, completing clinical documentation, obtaining and/or reviewing separately obtained history, performing a medically appropriate examination, and counseling and educating the patient/family/caregiver. CC: Sunny Jenkins MD documented in this encounter [facility] 12-24-2023 History of Presen t illness Narrative FOLLOW UP I have communicated my name and active licensure. The patient's identity and physical location were verified at the time of this visit. Either the patient or their legal route sales representative has been informed of the risks and benefits of -- and alternatives to -- treatment through a remote evaluation and consents to proceed with the evaluation remotely. HPI: Minal Caputo is a 68 year old female with a history of left breast ILC ER+, MT low positive and HER2 negative, diagnosed in [...] No history of dysuria, frequency or incontinence JEWELRY ESTIMATOR: Negative for abnormal vaginal bleeding, abnormal vaginal [...] a history of left breast ILC ER+, MT low positive and HER2 negative, diagnosed in [...] history, and counseling and educating the patient/family/caregiver. Halina Carbajal APRN.CNP documented in this encounter [facility] 12-24-2023 Evaluation note Diagnosis Invasive lobular carcinoma of breast in female (HCC)- Primary Stage 3a chronic kidney disease (HCC) documented in this encounter [facility]04-16-2024 Miscellaneous Notes* Telephone Encounter - Kalyani Rachel CMA - 12/10/2023 11:29 AM EDT Patient called into the office and stated that she will finish tomorrow the Fluconazole. She was asking if she needed to get another refill on it or go a different route, her infection is really bad and she couldn't go to Chemo today due to how bad the infection is. * Telephone Encounter - MIR Sheppard - 12/10/2023 11:29 AM EDT Alternative medication sent in * Telephone Encounter - Kalyani Rachel CMA - 12/10/2023 11:29 AM EDT Called patient to let her know about RX being sent to pharmacy [facility] encounter Note* Telephone Encounter - Kalyani Rachel CMA - 12/10/2023 11:29 AM EDT Patient called into the office and stated that she will finish tomorrow the Fluconazole. She was asking if she needed to get another refill on it or go a different route, her infection is really bad and she couldn't go to Chemo today due to how bad the infection is. [facility]04-16-2024 Telephone encounter Note* Telephone Encounter - MIR Sheppard - 12/10/2023 11:29 AM EDT Alternative medication sent in [facility]04-16-2024 Telephone encounter Note* Telephone Encounter - Kalyani Rachel CMA - 12/10/2023 11:29 AM EDT Called patient to let her know about RX being sent to pharmacy [facility]04[facility] History of Present illness Narrative* Brianna Renner APRN.CNP - 12/10/2023 9:58 AM EDT PATIENT NAME: Minal Capuot [facility] NO.: [id number] ATTENDING PHYSICIAN: Mitch Neri MD DATE OF SERVICE: December 10, 2023 (Elements copied from Cathy Templeton's note dated December 03, 2023, have been reviewed and updated whereappropriate, and all reflect current assessment and medical decision making during today's encounter, December 10, 2023.) Cc: Follow up and Taxol. Diagnosis: Left Breast Cancer: pT3,N3,M0, Grade 2 ILC, 6.3 cm, LVI present, Margins Negative, ER 80%, MT 5% and Her-2 IHC-0 Germline testing 07/2023: [...] grade 1 invasive lobular carcinoma ER 80%, MT 5% and HER2/akash with IHC 0. A [...] elected to transfer her care to the [facility] and underwent a L breast mastectomy [...] Range Status 12/10/2023 4.2 % Final Abs Monroe Date Value Ref Range Status 12/10/2023 0.32 [...] Examined (sentinel and non-sentinel) 4 Number of Randolph Nodes Examined 4 pTNM CLASSIFICATION (AJCC 8th [...] invasive lobular carcinoma, grade 2, ER 80%, MT 5% and HER2/akash negative, IHC 0, cancer [...] as scheduled. PE continue NOAC Brianna Renner APRN.VARNISH REMOVER CC: Sunny Jenkins MD I spent a total of 30 minutes on the date of the service which included preparing to see the patient, [id number] patient care, completing clinical documentation, obtaining and/or reviewing separately obtained history, performing a medically appropriate examination, counseling and educating the pat ient/family/caregiver, ordering medications, tests, or procedures, independently interpreting results (not separately reported), and communicating results to the patient/family/caregiver. [facility] Miscellaneous Notes* Telephone Encounter - Mitch [...] advise Yvonne Baumann RN [facility] Miscellaneous Notes* Telephone Encounter - Yvonne [...] protocol. Yvonne Baumann RN [facility] History of Present illness Narrative* Yvonne [...] Spent: 20 minutes REFERRAL (RECOMMENDATION): N/A Yvonne Baumann RN [facility] History of Present illness Narrative* Cathy Templeton PA-C - 12/03/2023 11:00 AM EDT [id number] ATTENDING PHYSICIAN: Mitch Neri MD DATE OF SERVICE: December 03, 2023 (Elements copied from Dr. Neir's note dated November 30, 2023, have been reviewed and updated whereappropriate, and all reflect current assessment and medical decision making during today's encounter, December 03, 2023) Cc: Follow up to start taxol Diagnosis: L Breast Cancer: pT3,N3,M0, Grade 2 ILC, 6.3 cm, LVI present, Margins Negative, ER 80%, MT 5% and Her-2 IHC-0 Germline testing 07/2023: [...] grade 1 invasive lobular carcinoma ER 80%, MT 5% and HER2/akash with IHC 0. A [...] elected to transfer her care to the [facility] and underwent a L breast mastectomy [...] Range Status 12/03/2023 9.2 % Final Abs Monroe Date Value Ref Range Status 12/03/2023 0.54 [...] Examined (sentinel and non-sentinel) 4 Number of Randolph Nodes Examined 4 pTNM CLASSIFICATION (AJCC 8th [...] invasive lobular carcinoma, grade 2, ER 80%, MT 5% and HER2/akash negative, IHC 0, cancer [...] which included preparing to see the patient, [id number] patient care, completing clinical documentation, obtaining and/or reviewing separately obtained history, performing a medically appropriate examination, counseling and educating the pat ient/family/caregiver, ordering medications, tests, or procedures, independently interpreting results (not separately reported), and communicating results to the patient/family/caregiver. [facility] History of Present illness Narrative* Leo Gerard APRN-VARNISH REMOVER - 11/27/2023 2:45 PM EDT Images from [...] up. (The flucanozole was prescribed by her p nicolasa PCP at [facility]). She has currently taken Fluconazole on [...] nursing note reviewed. Exam conducted with a pit hand present. Constitutional: Appearance: Normal appearance. HENT: Head: [...] affected area 2 times daily. MIR Sheppard 11/27/232253 [facility] History of Present illness Narrative* Katherine Kaiser RN - 11/26/2023 12:00 PM EDT Pt is not getting treatment today. Pt was de-accessed and sent home. Katherine Kaiser RN documented in this encounterCherrington Hospital04-02-2024 History of Present illness Narrative* Mitch Neri MD - 11/26/2023 11:42 AM EDT PATIENT NAME: Minal Caputo CLINIC NO.: [id number] ATTENDING PHYSICIAN: Mitch Neri MD DATE OF [...] cm, LVI present, Margins Negative, ER 80%, MT 5% and Her-2 IHC-0 Germline testing 07/2023: [...] grade 1 invasive lobular carcinoma ER 80%, MT 5% and HER2/akash with IHC 0. A [...] elected to transfer her care to the [facility] and underwent a L breast mastectomy [...] Range Status 11/26/2023 6.9 % Final Abs Monroe Date Value Ref Range Status 11/26/2023 0.47 [...] Histologic Type Invasive lobular carcinoma Histologic Grade (Fremont Histologic Score) Glandular (Acinar) / Tubular Differentiation [...] Examined (sentinel and non-sentinel) 4 Number of Randolph Nodes Examined 4 pTNM CLASSIFICATION (AJCC 8th [...] invasive lobular carcinoma, grade 2, ER 80%, MT 5% and HER2/akash negative, IHC 0, cancer [...] do not hesitate to contact me at [phone]. Mitch Neri MD Hematology/Medical Oncology [facility] I spent a total of 30 minutes on the date of the service which included preparing to see the patient, [id number] patient care, completing clinical documentation, obtaining and/or reviewing separately obtained history, performing a medically appropriate examination, and counseling and educating the patient/family/caregiver. CC: GregorySunny loera MD documented in this encounterCherrington Hospital04-02-2024 History of Present illness Narrative* Nona Lomax RD - 11/26/2023 11:24 AM EDT Oncology Nutrition Therapy Reassessment Per PSS, patient did not receive treatment today, but did go back to infusion to visit nursing and another patient. Briefly spoke to patient who denies needs at this time and requested follow up at later date. Signed by: Nona Lomax MS, RDN, LD documented in this encounterCherrington Hospital03-26-2024 Miscellaneous Notes* Telephone Encounter - Merary Resendiz CNA - 11/19/2023 4:20 PM EDT [facility] requested a verbal order to continue Longterm and provider will follow patient? * Telephone Encounter - Sunny Jenkins MD - 11/19/2023 4:20 PM EDT Ok to follow Please call and notify ThanksSUNNY MD 11/20/23 * Telephone Encounter - Merary Resendiz CNA - 11/19/2023 4:20 PM EDT Notified. documented in this encounterSt. [facility]03-26-2024 Telephone encounter Note* Telephone Encounter - Merary Resendiz CNA - 11/19/2023 4:20 PM [facility] and provider will follow patient[facility] Telephone encounter Note* Telephone Encounter - Sunny Jenkins MD - 11/19/2023 4:20 PM EDT Ok to follow Please call and notify Thanks, SUNNY JENKINS MD 11/20/23 [facility] Telephone encounter Note* Telephone Encounter - Merary Resendiz CNA - 11/19/2023 4:[address] [facility]03-[facility] History of Present illness Narrative* MIR Sheppard - 11/14/2023 3:00 PM EDT Subjective Patient ID: Minal Caputo is a 68 y.o. female. The patient is here today for discharge follow up from hospital. Transition of Care Med Rec completed? Yes Discharged medications: Medications have been reviewed and reconciled with the most recent facilitydischarge document. LA Turner presents to the office for hospital discharge follow up. She was admitted to [facility] on 11/05/2023 for provoked pulmonary embolism likely secondary to cancer. She was also newly diagnosed with diastolic dysfunction and heart failure. She was previously on 20 mg of lasix once da\taurus, but it was increased to 40 mg once daily at discharge from [place]. She was also sent home on 2 [...] She is following with Dr. Kramer at [facility] for oncology. She is status post masectomy [...] BID. Coupon card provided today along with [facility] pharmacy # for support d/t medicare. . [...] subsegmental pulmonary emboli without acute cor pulmonale ([facility]) Diuresis - furosemide (LASIX) 40 mg tablet; Take 1 tablet (40 mg total) by mouth 2 (two) times a day before meals for 14 days. - Basic Metabolic Panel; Future Hospital discharge follow-up Diastolic dysfunction with acute on chronic heart failure ([facility]) Primary hypertension Primary invasive malignant neoplasm of female breast, left ([facility]) Other orders - potassium chloride (K-TAB,KLOR-CON) 10 MEQ CR tablet; Take 1 tablet (10 mEq total) by mouth in the morning and 1 tablet (10 mEq total) before bedtime. MIR Sheppard 11/17/238 documented in this encounterSt. Vincent Hospital03-18-2024 Miscellaneous Notes* Telephone Encounter - Yvonne [...] Thanks Yvonne Baumann RN documented in this encounterCherrington Hospital03-18-2024 Miscellaneous Notes* Telephone Encounter - Yvonne Baumann RN - 11/11/2023 3:00 PM EDT DISCHARGE CALL BACK Today's date: November 11, 2023 Notified of Pt discharge by: previous telephone encounter Patient discharged on 11/08/23 from [facility] to Home Primary Cancer Diagnosis: Breast Cancer Admitting Diagnosis: PE, acute on chronic diastolic hear failure Discharge Summary/SBAR reviewed: Yes Handoff Discussed with Transitional Aerial Crop Duster: No, unavailable Psychosocial Risk Factors: None If [...] appointment: No will send new script of [facility] pharmacy so they can begin authorization process. [...] 11/18. Patient reminded of follow-up appointment with [facility] provider, Dr Neri on 11/19/23: Yes Discussed [...] hours and weekend phone number? YES Yvonne Baumann, RN documented in this encounterCherrington Hospital03-18-2024 Miscellaneous Notes* Telephone Encounter - Perla Marlow - 11/11/2023 12:41 PM EDT D/C summary scanned. * Telephone Encounter - Yvonne Baumann RN - 11/11/2023 11:54 AM EDT Pt has been discharged. Nel: can you get d/c summary please. Thanks Yvonne Baumann RN * Telephone Encounter - Yvonne Baumann RN - 11/07/2023 1:05 PM EDT Spoke with Harlan bedside nurse. He states pt is doing well and is asking about a couple of meds. Med list reviewed with nurse. Nurse states pt did not receive any steroids yesterday or today post chemo infusion. No further questions Yvonne Baumann RN * Telephone Encounter - Yvonne Baumann RN - 11/06/2023 9:20 AM EDT Spoke with Nery bedside nurse who states pt is doing well. Pt currently on a heparin drip. Pt's sats are normal on room air. Denies any concerns at this time. Yvonne Baumann RN documented in this encounterCherrington Hospital03-18-2024 Miscellaneous Notes* Telephone Encounter - Will Dean CMA - 11/11/2023 9:11 AM EDT Patient requesting refill. Patient stated [facility] requested her to double her current dose of 20 mg. * Telephone Encounter - Merary Resendiz CNA - 11/11/2023 9:11 AM EDT Minal called to inform she is out of medication and needs this today. documented in this encounterSt. Vincent Hospital03-18-2024 Telephone encounter Note* Telephone Encounter - Will Dean CMA - 11/11/2023 9:11 AM EDT Patient requesting refill. Patient stated [facility] requested her to double her current dose of [address] [facility]-18-[facility] Telephone encounter Note* Telephone Encounter - Merary Resendiz CNA - 11/11/2023 9:11 AM EDT Minal called to inform she is out of medication and needs this today. [facility] Miscellaneous Notes* Telephone Encounter - Steph [...] also informed us she is currently in [facility] and was admitted. The nurse was in the room at the time I explained results and they went ahead and scheduled a SHEBA and at that time would like to discuss results. documented in this encounterSt. Vincent Hospital03-13-2024 Telephone encounter Note* Telephone Encounter - [...] which patient should start. SUNNY JENKINS MD [facility]03-13-2024 Telephone encounter Note* Telephone Encounter - Steph Rendon CMA - 11/06/2023 9:51 AM EDT Called patient and informed her. She stated understanding and also informed us she is currently in [facility] and was admitted. The nurse was in the room at the time I explained results and they went ahead and scheduled a SHEBA and at that time would like to discuss results. [facility]-12-[facility] Miscellaneous Notes* Telephone Encounter - Yvonne Baumann RN - 11/05/2023 4:11 PM EDT Pt notified of scan results and will roll picker medication today. Yvonne Baumann RN * Telephone Encounter - Yvonne Baumann RN - 11/05/2023 3:[address] Neri received a call from radiologist stating pt has a PE on scan. Dr Neri would like tostart pt on Eliquis Please sign pending script. Yvonne Baumann RN documented in this encounterCherrington Hospital03-12-2024 History of Present illness Narrative* MumtazBrianna APRN.VARNISH REMOVER - 11/05/2023 9:56 AM EDT PATIENT NAME: Minal Caputo CLINIC NO.: [id number] ATTENDING PHYSICIAN: Mitch Neri MD DATE OF [...] cm, LVI present, Margins Negative, ER 80%, MT 5% and Her-2 IHC-0. Germline testing 07/2023: [...] grade 1 invasive lobular carcinoma ER 80%, MT 5% and HER2/akash with IHC 0. A [...] elected to transfer her care to the [facility] and underwent a L breast mastectomy [...] Range Status 11/05/2023 5.4 % Final Abs Monroe Date Value Ref Range Status 11/05/2023 0.38 [...] Examined (sentinel and non-sentinel) 4 Number of Randolph Nodes Examined 4 pTNM CLASSIFICATION (AJCC 8th [...] invasive lobular carcinoma, grade 2, ER 80%, MT 5% and HER2/akash negative, IHC 0, cancer [...] do not hesitate to contact Mitch [facility]eri [facility] [phone]. Brianna Renner APRN.NEY Hematology/Medical Oncology [facility] CC: Sunny Jenkins MD I spent a total of 30 minutes on the date of the service which included preparing to see the patient, [id number] patient care, completing clinical documentation, obtaining and/or reviewing separately obtained history, performing a medically appropriate examination, counseling and educating the pat ient/family/caregiver, ordering medications, tests, or procedures, independently interpreting results (not separately reported), and communicating results to the patient/family/caregiver. documented in this encounterCherrington Hospital03-12-2024 Nurse Note* Kortney Ho - 11/05/2023 9:50 AM EDT Patient is very winded. She states that she is all the time now. Started a few days ago. documented in this encounterCherrington Hospital03-08-2024 Miscellaneous Notes* Telephone Encounter - Merary Resendiz CNA - 11/01/2023 9:30 AM EST She requested a refill on her losartan, also. Which is not on the patient list. documented in this encounterSt. Vincent Hospital03-08-2024 Telephone encounter Note* Telephone Encounter - Merary Resendiz CNA - 11/01/2023 9:30 AM EST She requested a refill on her losartan, also. Which is not on the patient list. [facility]02-29-[facility] History of Present illness Narrative* Gabby [...] Past Histories independently gathered by the clinical technical support professional and the remaining scribed note accurately describes my personal service to the patient. documented in this encounterCherrington Hospital02-28-2024 Miscellaneous Notes* Telephone Encounter - Laura Lowry - 10/23/2023 4:40 PM EST Paperwork faex to Lydia @ [phone]. Laura Lowry * Telephone Encounter - Laura Lowry - 10/22/2023 11:18 AM EST STD paperwork for Lydia has been completed and placed in folder to be signed. Laura Lowry documented in this encounterCherrington Hospital02-28-2024 History of Present illness Narrative* Deepika Garcia LSW - 10/23/2023 3:51 PM EST SOCIAL WORK FOLLOW UP NOTE: CANCER CENTER Date of service:10/23/23 Minal Caputo is [...] as appropriate. BABS Canales documented in this encounterCherrington Hospital02-27-2024 History of Present illness Narrative* Deepika Garcia LSW - 10/22/2023 4:04 PM EST SOCIAL WORK FOLLOW UP NOTE: CANCER CENTER Date of service:10/22/23 Minal Caputo is [...] as appropriate. BABS Canales documented in this encounterCherrington Hospital02-27-2024 History of Present illness Narrative* Nell Cid RN - 10/22/2023 10:07 AM ESTSummary: Doxorubicin administration Doxorubicin administered via right chest infusaport without complications. Doxorubicin administeredvia free flowing normal saline with positive blood return maintained throughout infusion. Pt deniedany pain or discomfort at site. Lilia Cid RN,BSN,OCN documented in this encounterCherrington Hospital02-27-2024 History of Present illness Narrative* Mitch Neri MD - 10/22/2023 9:38 AM EST PATIENT NAME: Minal Caputo CLINIC NO.: [id number] ATTENDING PHYSICIAN: Mitch Neri MD DATE OF [...] cm, LVI present, Margins Negative, ER 80%, MT 5% and Her-2 IHC-0 Germline testing 07/2023: [...] grade 1 invasive lobular carcinoma ER 80%, MT 5% and HER2/akash with IHC 0. A [...] elected to transfer her care to the [facility] and underwent a L breast mastectomy [...] Range Status 10/22/2023 4.4 % Final Abs Monroe Date Value Ref Range Status 10/22/2023 0.54 [...] Histologic Type Invasive lobular carcinoma Histologic Grade ([place]ont Histologic Score) Glandular (Acinar) / Tubular Differentiation [...] Examined (sentinel and non-sentinel) 4 Number of Randolph Nodes Examined 4 pTNM CLASSIFICATION (AJCC 8th [...] invasive lobular carcinoma, grade 2, ER 80%, MT 5% and HER2/akash negative, IHC 0, cancer [...] do not hesitate to contact me at [phone]. Mitch Neri MD Hematology/Medical Oncology [facility] Hightower spent a total of 30 minutes on the date of the service which included preparing to see the patient, [id number] patient care, completing clinical documentation, obtaining and/or reviewing separately obtained history, performing a medically appropriate examination, and counseling and educating the patient/family/caregiver. CC: Sunny Jenkins MD documented in this encounterCherrington Hospital02-27-2024 History of Present illness Narrative* Nona Lomax RD - 10/22/2023 9:32 AM EST Oncology [...] Comments: weight fluctuations expected given diuretic therapy [place] Body Weight: 46.9kg Estimated kilocalorie needs: 6923-2146 kilocalories determined by 30-35 kcal/kg Estimated protein needs: 47-70 grams determined by 1.0-1.5 g/kg [place] weight Estimated fluid needs: ~4771-7289 milliliters based on 1 mL per kcal [...] with Patient: 15 minutes Signed by: Nona Lomax MS, RDN, LD documented in this encounterAngela Ville [address]-19-2024 Miscellaneous Notes* Telephone Encounter - Nery Simeon [...] Thanks Yvonne Baumann RN documented in this encounterCherrington Hospital02-16-2024 Miscellaneous Notes* Telephone Encounter - Laura Lowry - 10/11/2023 12:[address] labs for appt/tx on 10/15. Laura Lowry documented in this encounterCherrington Hospital02-15-2024 Miscellaneous Notes* Telephone Encounter - Kendal Watts RN - 10/10/2023 2:56 PM EST Crystal from [facility] notes that they received an order from Dr Neri for a compression sleeve. Requesting clinical documentation. Office notes from 09/20/23 (Plastic Surgery) and 09/17/23 (Dr Neri) faxed to [phone]. Kendal Watts RN documented in this encounterCherrington Hospital02-14-2024 History of Present illness Narrative* Leo Gerard, SSIS DEVELOPER-VARNISH REMOVER - 10/09/2023 10:30 AM EST Subjective Patient ID: Minal Caputo is a 67 y.o. female. LA Turner presents to the office for sick visit. Patient's past medical history is significant for right breast mass, positive for ILC grade 1 carcinoma, she is [facility] and will begin chemotherapy for invasive [...] this for 7 days. MIR Sheppard 10/09/23 1109 documented in this encounterSt. Vincent Hospital02-12-2024 Miscellaneous Notes* Telephone Encounter - Cassia Mejia RN - 10/07/2023 9:37 AM EST Received call from Minal with concerns of extensive itching and redness around the port she had placed on September 27. Had patient send picture to IR coordinator email and reviewed image and concerns with Dr. Villafuerte, who originally placed port at [place]. Dr. CLARK spoke with patient's oncologist, Dr. Neri, and plan was put in place to postpone chemo treatment and take oral steroids for one week to see if rash and itching improves. Patient updated and agreeable to plan of care. documented in this encounterCherrington Hospital02-02-2024 Miscellaneous Notes* Telephone Encounter - Yessi [...] Thanks Yvonne Baumann RN documented in this encounterCherrington Hospital02-01-2024 Instructions* Patient Instructions* Nell Martin PA-C - 09/26/2023 8:02 AM EST PATIENT PREOPERATIVE INSTRUCTIONS Lynda Villafuerte* has scheduled you for your procedure at this surgery center: [facility]: [phone] --[address] [place] [address]. Please enter through the entrance closest to [...] Procedures: - YOU MUST HAVE A RESPONSIBLE LITHOGRAPHIC CAMERA OPERATOR TAKE YOU HOME. A FRAME FEEDER OR DIRECTOR WATER AND WASTE SERVICES CANNOT BE MADE A RESPONSIBLE LITHOGRAPHIC CAMERA OPERATOR. - We recommend that a responsible person [...] Advance Directive, please fax a copy to [phone] or email to for it to be [...] your chart that day. documented in this encounterCherrington Hospital02-01-2024 History and physical note * Nell [...] fevers. Neuro: No history of TIA's, stroke, MOBILE HEAVY EQUIPMENT OPERATOR tumor, impaired sensorium, hemiplegia, paraplegia or quadraplegia. [...] or incontinence,, stones or chronic kidney disease JEWELRY ESTIMATOR: See HPI : N/A, Patient's last menstrual [...] Obtained from outside source and scanned into [employer] Date: 09/18/2023 Result: LV systolic function normal [...] 2023 TIME: 7:57 AM documented in this encounterCherrington Hospital01-31-2024 Miscellaneous Notes* Telephone Encounter - Citlali Sanchez CMA - 09/25/2023 9:59 AM EST Spoke with patient regarding NM HMT Molecular breast imaging localization test that Dr. Soto ordered on 07/10/23. Patient originally had it scheduled with [facility] on 08/08/23 but patient had cancelled it through her MyChart. Patient stated today that she [facility] and has already had a Mastectomy. Will inform Dr. Soto. documented in this encounterSt. Vincent Hospital01-31-2024 Telephone encounter Note* Telephone Encounter - Citlali Sanchez CMA - 09/25/2023 9:59 AM EST Spoke with patient regarding NM HMT Molecular breast imaging localization test that Dr. Soto ordered on 07/10/23. Patient originally had it scheduled with [facility] on 08/08/23 but patient had cancelled it through her MyChart. Patient stated today that she [facility] and has already had a Mastectomy. Will inform Dr. Soto. [facility]01-26-[facility]24 NoteHNO ID: [id number] Author: GABBY COBIAN MD Service: ? Author [...] 4 weeks after surgery. Do not perform operating room orderly such as laundry and vacuuming. Do not [...] -Consult to lymphedema therapy placed. Please call [phone] to schedule, change, cancel or confirm an appointment. -Return to clinic in when CASSIDY drain meets criteria for removal, okay for home health to remove drain. -Follow up w/ Dr. Cobian in 4 weeks. -If experiencing wound complications or have any questions or concerns during business hours call [phone], option 3 or after hours (after 5 pm or on the weekend) call [phone] and ask for the plastic surgery resident / fellow air support control officer for further instructions. If you have increasing [...] Past Histories independently gathered by the clinical technical support professional and the remaining scribed note accurately describes my personal service to the patient.[facility]12-29-2023 Miscellaneous Notes* Telephone Encounter - Kalyani Rachel CMA - 08/23/2023 10:13 AM EST Doris from Home Health called into the office and just wanted to make you aware of pts blood pressure has been running between 150-180 for her diastolic number. And has also had increased edema in herlegs. documented in this encounterUniversity Of Vermont [facility] CenterFreezing [facility]12-29-2023 Telephone encounter Note* Telephone Encounter - Kalyani Rachel CMA - 08/23/2023 10:13 AM EST Doris from [facility] called into the office and just wanted to make you aware of pts blood pressure has been running between 150-180 for her diastolic number. And has also had increased edema in herlegs. [facility]12-12-[facility] History of Present illness Narrative* Halina Carbajal APRN.VARNISH REMOVER - 08/06/2023 10:45 AM EST BREAST CANCER [...] out 60-80 cc daily. Pathology: SURGICAL PATHOLOGY: [id number] Order: [id number] Collected 07/29/2023 11:29 AM Status: Final result [...] communicated to Dr. Celia Donaldson, Dr. Sandro Sawyer, and Juliet Carbajal NP by Dr. Saravanan Danielle via secure email on 16/07/2023 at 10:11 a.m. Laboratory Developed Test (LDT) Disclaimer: Performance characteristics of immunohistochemical, immunofluorescent and chromogenic in-situ hybridization tests have been determined by the performing laboratory within [facility] [place] ([facility], [facility], [facility], [facility], [facility], [facility], or [facility]) in a manner consistent with CLIA requirements. [...] Examined (sentinel and non-sentinel) 4 Number of Randolph Nodes Examined 4 pTNM CLASSIFICATION (AJCC 8th [...] on (outside case, slides reviewed at the [facility]) Comment(s) Invasive lobular carcinoma is present [...] scheduled consults. Seeing Dr. Yang and Dr. Sawyer today. Reviewed pathology and need for additional [...] were answered; patient has no further concerns. Halina Carbajal APRN.NEY documented in this encounterCherrington Hospital12-12-2023 Nurse Note* Shannan Schulz - 08/06/2023 8:42 AM EST Reviewed and confirmed with patient that there were no changes in the the nursing assessment and vitals that were completed on August 06, 2023 during previous provider appointment. Shannan Schulz documented in this encounterCherrington Hospital12-12-2023 Nurse Note* Shannan Schulz - 08/06/2023 8:33 AM EST Additional intake questions: Has the patient had fever, nausea, vomiting, diarrhea, constipation, fatigue for > 1 week? No Does the patient have a decreased appetite? No Does patient want to see a Applications Consultant? No (yes to any of above refer patient to schedulers for dietitian appointment) ) Does patient have any new or increased numbness or tingling of extremities? No Is patient interested in fertility information? No Does patient need any prescription refills? No Does patient have an advanced directive in place? No, Patient referred to Resource Center documented in this encounterCherrington Hospital12-12-2023 History of Present illness Narrative* Mendoza Yang MD - 08/06/2023 8:30 AM EST BREAST CANCER FOLLOW UP NOTE SERVICE DATE: August 05, 2023 Oncology History Overview Note Prev callbacks, no prev biopsies. Odell a right breast lump few months prior [...] core biopsy ILC grade 1, ER 80% MT 5% HER2 IHC 0 07/08/23: PET: fdg [...] Stage IB (cT2, cN0, cM0, G1, ER+, MT+, HER2-) - Signed by Mendoza Yang MD on 07/23/2023 08/06/2023 Cancer Staged Staging form: Breast, AJCC 8th Edition - Pathologic stage from 08/06/2023: pT3, pN1a, G2, ER+, MT+, HER2- - Signed by Mendoza Yang MD [...] Stage IB (cT2, cN0, cM0, G1, ER+, MT+, HER2-) - Signed by Mendoza Yang MD on 07/23/2023 - Pathologic stage from 08/06/2023: pT3, pN1a, G2, ER+, MT+, HER2- - Signed by Mendoza Yang MD [...] Yang MD Associate Staff Breast Medical Oncology [facility] cc: Rita Amanda MD I spent a total of 45 minutes on the date of the service which included preparing to see the patient, [id number] patient care, completing clinical documentation, obtaining and/or reviewing separately obtained history, and performing a medically appropriate examination. documented in this encounterCherrington Hospital12-04-2023 History of Present illness Narrative* Giovani [...] 8:22AM PATIENT DISCHARGED TO: Ambulatory patient, left [place] department area. A Diagnostic radioactive procedure has taken place, with no further precautions necessary other than routine body substance precautions. More information regarding radiation safety can be found usingthis link: [email or web address] SIGNATURE: RT Nick(Junior) PATIENT NAME: Minal Caputo DATE: July 29, 2023 TIME: 8:30 AM PAGER/CONTACT #: documented in this encounterCherrington Hospital12-01-2023 History and physical note * Maria M Mari APRN.VARNISH REMOVER - 07/26/2023 11:50 AM EST HISTORY AND [...] fevers. Neuro: No history of TIA's, stroke, MOBILE HEAVY EQUIPMENT OPERATOR tumor, impaired sensorium, hemiplegia, paraplegia or quadraplegia. [...] or incontinence,, stones or chronic kidney disease JEWELRY ESTIMATOR: See HPI : N/A, Patient's last menstrual [...] 418 QTC Calculation (Bazett) 444 Calculated P Omak 30 Calculated R Omak 13 Calculated T Omak 40 Impression NORMAL SINUS RHYTHM NORMAL ECG Confirmed by LAMINE ALY MD ([id number]) on 02/06/2023 10:07:03 AM Type of Monitor: [...] fusion rods again noted. RA (rheumatoid arthritis) (HCC) Assessment: sero positive [...] 2023 TIME: 12:03 PM documented in this encounterCherrington Hospital12-01-2023 Instructions* Patient Instructions* Maria M Mari APRN.CNP - 07/26/2023 11:17 AM EST PATIENT PREOPERATIVE INSTRUCTIONS Heather Castillo MD has scheduled you for your procedure at this surgery center: [facility] Scheduling Office: [phone] --[address] [place] [address]. Please read below carefully for your personalized [...] Procedures: - YOU MUST HAVE A RESPONSIBLE LITHOGRAPHIC CAMERA OPERATOR TAKE YOU HOME. A FRAME FEEDER OR DIRECTOR WATER AND WASTE SERVICES CANNOT BE MADE A RESPONSIBLE LITHOGRAPHIC CAMERA OPERATOR. - We recommend that a responsible person [...] call the Saturday before. Your surgeon s director of women's services will tell you what time to call the office. - If you have not reached the departmental director of women's services by 5 P.M., call [phone] after 5 P.M. the day before your surgery. Please be aware that emergency situations arise, which may delay or change your surgical time. If this happens, we will notify you as soon as possible and regret any inconvenience. If you already have an Advance Directive, please fax a copy to [phone] or email to for it to be [...] your chart that day. documented in this encounterCherrington Hospital11-29-2023 Miscellaneous Notes* Telephone Encounter - Leatha Ignacio RN - 07/24/2023 9:24 AM EST Received call back from patient's slabber light. Recommend holding methotrexate 07/28 and resuming 08/04. Patient notified. Leatha Ignacio RN July 24, 2023 9:25 AM documented in this encounterCherrington Hospital11-28-2023 Nurse Note* Clarissa Tang LPN - 07/23/2023 12:31 PM EST Reviewed and confirmed with patient that there were no changes in the the nursing assessment and vitals that were completed on 07/23/2023 during previous provider appointment. Clarissa Tang LPN documented in this encounterCherrington Hospital11-28-2023 History of Present illness Narrative* Nishant Sawyer MD - 07/23/2023 12:00 PM EST Radiation Oncology - New Patient/Consult Note PATIENT NAME: Minal Caputo PATIENT REQUESTING PROVIDER: Heather Castillo MD DIAGNOSIS: 67 year old female with infiltrating lobular carcinoma of the Left breast, centrally located, clinical stage T2N0, ER-positive (80%), MT-positive (5%), and Her2/akash not amplified, s/p biopsy. [...] FINAL DIAGNOSIS A. Breast, left, core biopsy ([id number]; 06/19/2023): ---Invasive lobular carcinoma, preliminary Fremont grade 1 (of 3), measuring at least 4.5 mm in greatest dimension. ---Please see comment. ER: POSITIVE (80%, strong) MT: POSITIVE (5%, moderate) HER2 IHC: NEGATIVE (0) [...] 68 Difficulty with anesthesia No Family History JEWELRY ESTIMATOR HISTORY: OB History T1 L0 SAB0 IAB0 [...] therapy were fully discussed with the patient. Nishant Sawyer MD Medical Decision Making: Problems: High: Illness/injury w/ threat to life/body function Data: Unique test result(s) reviewed: 3+ Independent interpretation of test from other physician/QHCP Risk: Moderate: Moderate risk from testing/treatment Medical Decision Making Level: 5 - High cc: Rita Amanda MD ([facility]) [address] [place] [id number] [facility] [address] [facility] [id number] documented in this encounterCherrington Hospital11-28-2023 History of Present illness Narrative* Nell Rosa RT(R) - 07/23/2023 10:00 AM EST Radiology Service [...] 23, 2023 11:48 AM documented in this encounterCherrington Hospital11-22-2023 Miscellaneous Notes* Addendum Note - Leatha Ignacio RN - 07/17/2023 12:12 PM ESTAddended by: LEATHA IGNACIO on: 07/17/2023 12:12 PM Modules accepted: Orders documented in this encounterCherrington Hospital11-17-2023 Miscellaneous Notes* Telephone Encounter - Milton Tim RN - 07/12/2023 10:37 AM EST July 12, 2023 Message sent to [email or web address], patient is interested in having done. Milton Tim RN * Telephone Encounter - Milton Tim RN - 07/12/2023 10:25 AM EST July 12, 2023 Requested imaging/path slides from: left detailed message requesting a callback for imaging [facility] [address] [place] [address] Pathology Request date: July 12, 2023 FEDEX#: [id number] breast imaging requested [facility] [address] [place] [id number] * Telephone Encounter - Milton Tim RN - 07/12/2023 10:08 AM EST July 12, 2023 Spoke with orlando Lynn via telephone and obtained the following information pertinent to upcoming appointment. Diagnosis: Final Pathologic Diagnosis Left breast core biopsy: INVASIVE MAMMARY CARCINOMA. Histologic Fremont grade 2 (tubule formation 3, nuclear pleomorphism 2, mitotic activity 1; total score 6/9). See comments. Date of Diagnosis: 06/19/23 Institution/Location of Diagnosis: [facility] [address] [place] [address] Referring Physician: Rita Amanda MD Breast MRI: [...] Cough: no Swelling in leg(s): no Ashkenazi Zoroastrianism Decent? No History of genetic testing? No genetic testing done, patient is interested Message was sent to Jesus Otoole to add patient for an appointment. Notes/Comments: Milton Tim RN July 12, 2023 documented in this encounterCherrington Hospital06-16-2023 Miscellaneous Notes* Telephone Encounter - Leslie Forrester MA - 02/08/2023 8:53 AM EDT Greetings, Dr. Son reached out to Dr. Crow Sousa. He used to be with us as a total joint replacement doctor and moved his practice over to [facility]. He is willing to see you and do evaluation. His office number is [phone]. His office address is [facility] [address] [place] [address] [place] [id number]. He does also go to a office on [address] in [place] just confirm with them what office you will be at. Let us know if there is anything else we can help you with. Stay safe and well. Thank you Leslie with Dr. Son documented in this encounterCherrington Hospital06-07-2023 History and physical note * Elida Craft PA-C - 01/30/2023 5:51 AM EDT Patient notes a recent ED visit. Her heart rate has been ranging from 23-127 bpm. She has been trying to get in to cardiology but was told there were no appointments until July 2023. I have called her quality control lead's office and have secured her an appointment for next week. She is aware of the appointment. Message sent to PACC schedulers to cancel virtual PACC appointment and reschedule to an in-person appointment. Patient also provided schedulers number. Thank you, Elida Craft PA-C [facility] documented in this [facility]06-07-[facility] Miscellaneous Notes* Telephone Encounter - Elida Craft PA-C - 01/30/2023 5:48 AM EDT Rigoberto, Please cancel her virtual PACC appointment and reschedule her for an in-person PACC visit due to her significant heart rate variations of 23-127 bpm. I have helped secure her a cardiology appointment prior to her procedure. DOS: 02/11/2023 Thank you, Elida Craft PA-C [facility] documented in this encounterCherrington Hospital04-14-2023 Evaluation note* Encounter Date Diagnosis Assessment Notes Treatment Notes Treatment Clinical Notes Nov, Bronchitis (ICD-10 - J40) Acute bronchitis material was printed Drink plenty fluids, get plenty of rest. Take the doxycycline as prescribed until gone. Continue home medications as prescribed. Follow-up with your family physician if no improvement in 2 to 3 days. Go to the ER for worsening symptoms or concerns. [facility] 04-10-2023 Evaluation note* Encounter Date Diagnosis [...] treatment plan. Patient left in stable condition. [facility] 01-25-2023 Instructions* Patient Instructions* Nell Trujillo APRN.VARNISH REMOVER - 09/19/2022 7:13 AM EST Images from the original note were not included. Thank you for seeing me in clinic today. As we discussed, my recommendations are as follows: 1.EGD 2.Colonoscopy 3.Continue Nexium If you have any questions about the above treatment plan, please do not hesitate to call the officeor send me a Paydiant message. Bowel Preparation Instructions for: Golytely, Nulytely, [...] If you do not have a responsible local tanker truck driver (family member or friend) [...] your exam. 2 07/2019 documented in this encounterCherrington Hospital01-25-2023 History and physical note * Nell [...] Abs Lymph 1.00 - 4.00 k/uL 3.81 Monroe% % 7.9 Abs Monroe <0.87 k/uL 0.68 Eosin% % 2.4 Abs [...] daily I spent more than 30 minutes abdt-xv-jamd with the patient and over half the time was devoted to counseling and/or coordination of care. This note was dictated using [employer] speech recognition software and may contain some errors that were a result of the program not accurately transcribing what was dictated. Nell Trujillo APRN.NEY documented in this encounterCherrington Hospital01-12-2023 History of Present illness Narrative* Micah Son DO - 09/06/2022 3:10 PM ESTAssociated Order(s): Large Joint Arthro/Inj: L hip joint Post-Procedure Diagnose(s): Primary osteoarthritis of left hip Patient presents for a left hip injection. Large Joint Arthro/Inj: L hip joint Informed Consent Consent Obtained: Verbal Naper Protocol A moment to CARE was completed. [...] Micah Son DO 09/06/2022 documented in this encounterCherrington Hospital10-23-2022 Evaluation note* Encounter Date Diagnosis Assessment Notes Treatment Notes Treatment Clinical Notes May, Cough (ICD-10 - R05.9) May, COVID-19 (ICD-10 - U07.1) Today you tested positive for the COVID virus. This mean you need to follow all CDC quarantine guidelines found at coronavirus.[place].go v. It is important to rest, increase [...] weeks for the cough to go away [facility] 08-09-2022 History of Present illness Narrative* [...] instrumentation (Valadez rods) PAST SURGICAL HISTORY OF 2007 lumbar laminectomy Current Outpatient Medications Medication Sig [...] infection or early failure. documented in this encounterCherrington Hospital08-04-2022 History of Present illness Narrative* Hansa Franz RDMS, RVT - 03/29/2022 4:15 PM [...] PERIPHERAL IV DATA: Not applicable SIGNED BY: Hansa Franz RDMS, LUIS March 29, 2022 4:31 PM documented in this encounterCherrington Hospital08-01-2022 Miscellaneous Notes* Telephone Encounter - Nikko Brown - 03/26/2022 12:00 PM EDT Physical therapy order sent to [facility] via fax. documented in this encounterCherrington Hospital07-29-2022 History of Present illness Narrative* Nayan [...] 2022 TIME: 3:48 PM documented in this encounterCherrington Hospital07-25-2022 Instructions* Patient Instructions* Alberto Monsalve DO - 03/19/2022 4:28 PM EDT Do not take Naproxen or other NSAIDs while taking the oral steroid Medrol dose pack. Call [phone] to schedule appointment with Spine Surgery. documented in this encounterCherrington Hospital07-25-2022 History of Present illness Narrative* Alberto Monsalve DO - 03/19/2022 3:37 PM EDT Images from the original note were not included. [facility] [...] in local hospital 03/13/22 and transferred to [facility] on 03/14/22. Since then the right [...] 5/5 on the left. 3/5 right hand tree specialist strength, 5/5 on the left Field Instructor strength significantly weaker on right compare to le 5/5 bilateral shoulder abduction, elbow flexion, elbow extension, wrist extension, wrist flexion, digit abduction, tree specialist strength. SENSORY: sensation intact to light touch [...] which included preparing to see the patient, gtvk-ae-ghyf patient care, completing clinical documentation, obtaining and/or reviewing separately obtained history, performing a medically appropriate examination, counseling and educating the pat ient/family/caregiver, ordering medications, tests, or procedures, independently interpreting results (not separately reported), and communicating results to the patient/family/caregiver. SIGNATURE: Alberto Monsalve DO PATIENT NAME: Minal Caputo DATE: March 19, 2022 TIME: 3:37 PM documented in this encounterCherrington Hospital07-20-2022 History of Past illness Narrative* Problem Noted Date Resolved Date Hypertensive urgency 03/14/2022 03/15/2022 AF (paroxysmal atrial fibrillation) 12/08/2021 03/14/2022 documented as of this encounter (statuses as of 03/15/2022) [facility] Past illness Narrative* Problem Noted Date Resolved Date Hypertensive urgency 03/14/2022 03/15/2022 AF (paroxysmal atrial fibrillation) 12/08/2021 03/14/2022 documented as of this encounter (statuses as of 03/23/2022) [facility] illness Narrative* Problem Noted Date Resolved Date Hypertensive urgency 03/14/2022 03/15/2022 AF (paroxysmal atrial fibrillation) 12/08/2021 03/14/2022 documented as of this encounter (statuses as of 03/23/2022) [facility] illness Narrative* Problem Noted Date Resolved Date Hypertensive urgency 03/14/2022 03/15/2022 AF (paroxysmal atrial fibrillation) 12/08/2021 03/14/2022 documented as of this encounter (statuses as of 03/26/2022) [address]20-[address]22 History of Past illness Narrative* Problem Noted Date Resolved Date Hypertensive urgency 03/14/2022 03/15/2022 AF (paroxysmal atrial fibrillation) 12/08/2021 03/14/2022 documented as of this encounter (statuses as of 03/30/2022) [address]20-[address]22 History of Past illness Narrative* Problem Noted Date Resolved Date Hypertensive urgency 03/14/2022 03/15/2022 AF (paroxysmal atrial fibrillation) 12/08/2021 03/14/2022 documented as of this encounter (statuses as of 04/03/2022) [address]20-2022 History of Past illness Narrative* Problem Noted Date Resolved Date Hypertensive urgency 03/14/2022 03/15/2022 AF (paroxysmal atrial fibrillation) 12/08/2021 03/14/2022 documented as of this encounter (statuses as of 04/03/2022) [address]20-2022 History of Past illness Narrative* Problem Noted Date Resolved Date Hypertensive urgency 03/14/2022 03/15/2022 AF (paroxysmal atrial fibrillation) 12/08/2021 03/14/2022 documented as of this encounter (statuses as of 04/05/2022) [address]20-2022 History of Past illness Narrative* Problem Noted Date Resolved Date Hypertensive urgency 03/14/2022 03/15/2022 AF (paroxysmal atrial fibrillation) 12/08/2021 03/14/2022 documented as of this encounter (statuses as of 09/06/2022) [address]20-[address]22 History of Past illness Narrative* Problem Noted Date Resolved Date Hypertensive urgency 03/14/2022 03/15/2022 AF (paroxysmal atrial fibrillation) 12/08/2021 03/14/2022 documented as of this encounter (statuses as of 09/19/2022) [address]20-[address]22 History of Past illness Narrative* Problem Noted Date Resolved Date Hypertensive urgency 03/14/2022 03/15/2022 AF (paroxysmal atrial fibrillation) 12/08/2021 03/14/2022 documented as of this encounter (statuses as of 01/30/2023) [address]20-[address]22 History of Past illness Narrative* Problem Noted Date Resolved Date Hypertensive urgency 03/14/2022 03/15/2022 AF (paroxysmal atrial fibrillation) 12/08/2021 03/14/2022 documented as of this encounter (statuses as of 01/30/2023) [address]20-[address]22 History of Past illness Narrative* Problem [...] of this encounter (statuses as of 02/08/2023) [facility] Narrative* Problem [...] of this encounter (statuses as of 07/12/2023) [facility] Narrative* Problem [...] of this encounter (statuses as of 07/17/2023) [facility] Narrative* Problem [...] of this encounter (statuses as of 07/24/2023) [facility] Narrative* Problem [...] of this encounter (statuses as of 07/24/2023) [facility] Narrative* Problem [...] of this encounter (statuses as of 07/24/2023) [facility] Narrative* Problem [...] of this encounter (statuses as of 07/26/2023) [facility] Narrative* Problem [...] of this encounter (statuses as of 07/30/2023) [facility]* Problem [...] of this encounter (statuses as of 08/07/2023) [facility] Narrative* Problem [...] of this encounter (statuses as of 08/09/2023) [facility] Narrative* Problem [...] of this encounter (statuses as of 09/26/2023) [address]20-2022 History of Past illness Narrative* Problem Noted Date Diagnosed Date Resolved Date Atrial tachycardia, paroxysmal 03/14/2022 02/05/2023 Last Assessment & Plan: Assessment: patient states that she had AFIB in past-- on Metoprolol Follows with Dr. aDo Ortiz HR 25-120 at home at pulse ox, denies chest pain or palpitations RRR on exam today Hypertensive urgency 03/14/2022 022 AF (paroxysmal atrial fibrillation) 12/08/2021 03/14/2022 documented as of this encounter (statuses as of 09/27/2023) [facility] Narrative* Problem [...] of this encounter (statuses as of 10/08/2023) [address]20-[address]22 History of Past illness Narrative* Problem [...] of this encounter (statuses as of 10/10/2023) [facility]* Problem [...] of this encounter (statuses as of 10/14/2023) [facility] Narrative* Problem [...] of this encounter (statuses as of 10/22/2023) [facility] Narrative* Problem [...] of this encounter (statuses as of 10/22/2023) [address]20-[address]22 History of Past illness Narrative* Problem [...] of this encounter (statuses as of 10/23/2023) [facility]* Problem [...] of this encounter (statuses as of 10/23/2023) [facility] N[facility]* Problem [...] of this encounter (statuses as of 10/23/2023) [facility] Narrative* Problem [...] of this encounter (statuses as of 10/24/2023) [facility]* Problem [...] of this encounter (statuses as of 10/24/2023) [facility] N[facility]* Problem [...] of this encounter (statuses as of 10/24/2023) [facility]arrative* Problem [...] of this encounter (statuses as of 10/24/2023) [facility] N[facility]* Problem [...] of this encounter (statuses as of 11/05/2023) [facility] N[facility]* Problem [...] of this encounter (statuses as of 11/05/2023) [facility]* Problem [...] of this encounter (statuses as of 11/06/2023) [address]20[address]22 History of Past illness Narrative* Problem [...] of this encounter (statuses as of 11/06/2023) [facility]* Problem [...] of this encounter (statuses as of 11/11/2023) [facility] Narrative* Problem [...] of this encounter (statuses as of 11/12/2023) [facility]* Problem [...] of this encounter (statuses as of 11/12/2023) [facility]* Problem [...] of this encounter (statuses as of 11/12/2023) [facility]* Problem [...] of this encounter (statuses as of 11/26/2023) [facility]* Problem [...] of this encounter (statuses as of 11/30/2023) [facility]* Problem [...] of this encounter (statuses as of 12/04/2023) [facility]* Problem [...] of this encounter (statuses as of 12/04/2023) [facility]* Problem [...] of this encounter (statuses as of 12/04/2023) [address]22 History of Past illness Narrative* Problem [...] of this encounter (statuses as of 12/04/2023) [facility]* Problem [...] of this encounter (statuses as of 12/10/2023) [facility]* Problem [...] of this encounter (statuses as of 12/10/2023) [facility] N[facility]ative* Problem Noted Date Diagnosed Date Resolved Date Atrial tachycardia, paroxysmal 03/14/2022 02/05/2023 Last Assessment & Plan: Assessment: patient states that she had AFIB in past-- on Metoprolol Follows with Dr. Taigen States HR 25-120 at home at pulse ox, denies chest pain or palpitations RRR on exam today Hypertensive urgency 03/14/2022 022 AF (paroxysmal atrial fibrillation) 12/08/2021 03/14/2022 documented as of this encounter (statuses as of 12/13/2023) [facility] Present illness Narrative* Micah Son, - 12/19/2021 3:45 PM EDT Associated Order(s): [...] Correspondence will be shared today via the [employer] electronic health record or through regular mail, [...] hip joint Informed Consent Consent Obtained: Verbal Naper Protocol A moment to CARE was completed. [...] applicable Micah Son DO documented in this encounterCherrington Hospital04-25-2022 Miscellaneous Notes* Telephone Encounter - Hansa Berry MA - 12/18/2021 1:38 PM EDT Left detailed message advising pt to keep follow up appt. * Telephone Encounter - Nayan Yan DO - 12/18/2021 12:21 PM EDT Yes she should get her hip injected * Telephone Encounter - Jaye Sauer - 12/15/2021 2:57 PM EDT Minal Caputo called today. : 1955 Allergies: Fentanyl, Adhesive Bandages [Other], and Sulfa (Sulfonamide Antibiotics) (home) [phone] (cell) Reason for call: patient checking to see if provider received disk with images from [facility]. Please call to discuss if hip injections would be beneficial. Has appointment for injection this coming Tuesday 12/19 and wants to know if she should keep this appointment. Patient last appointment: Visit date not found The patients preferred pharmacy has been captured for this encounter? no Jaye Woodene documented in this encounterCherrington Hospital04-15-2022 History of Present illness Narrative* Janine Canales - 12/08/2021 9:36 AM EDT EVENT MONITOR DISPOSABLE PATCH INSTRUCTIONS Patient Name: Minal Caputo Clinic Number: [id number] Skin prepped and cleansed with alcohol Patch secured to prepped area Monitor Activated Serial #: [id number] Patient Instructed: 1.) Prescribed order timeframe 2.) Bathing guidelines 3.) Usage of event button and diary documentation 4.) Return of monitor at the end of prescribed order 5.) Call with problems [phone] or [phone]. [phone] Patient expresses a good understanding of instructions Janine Canales [facility] of Present illness Narrative* John Dc MD - 12/08/2021 8:15 AM EDT Images from the original note were not included. [facility] [place] [facility] Department of Cardiovascular Medicine SECTION OF CARDIAC PACING and ELECTROPHYSIOLOGY OUTPATIENT VISIT DATE December 08, 2021 OUTPATIENT VISIT TYPE NEW PRIMARY CARE PHYSICIAN: Rita Amanda MD ([facility]) [address] [place] [address] REFERRING PHYSICIAN: SELF CHIEF COMPLAINT: Self referral [...] Frequent thirst-No. Leo Ballard RN PHYSICAL EXAMINATION: [facility] 08/26/2006 (Approximate) Physical Exam Constitutional: [...] INFORMATION: John Dc MD documented in this encounterC[facility] Evaluation note* Encounter Date Diagnosis Assessment [...] Patient care instructions given in writting by [facility] At Home document. [employer] Other 11-05-2021 NoteAdmission Information Admitting Physician - CANDE HATHAWAY, Terrell Consulting Physician - Judy Pierre MD Admitting Diagnoses: obstructing kidney stone Hospital Course Significant Findings 65-year-old white female past medical history of obesity, COPD, hypertension, GERD and nephrolithiasis who was admitted as direct admission for possible A. fib. Patient was scheduled to have cystoscopy and possible stent for obstructing kidney stone. EKG read as having A. fib so she was directed [facility] for admission. Patient in the EKG looks [...] EFREN AMANDA Within 5 to 7 [id number] [address]- [facility] (1) Additional Instructions: Patient Education Kidney Stones, [id number] [1] Admission H & P; Terrell IVY MD 06/28/2021 16:34 [facility]Comment [facility]:Result Comment: Electronically Signed By: Terrell IVY MD\.br\Date and Time Signed: 06/30/21 14:[id number] NoteBasic Information Admit Date/Time:06/28/2021 16:05 Chief Complaint aFIB History of Present Illness 65-year-old white female past medical history of obesity, COPD, hypertension, GERD and nephrolithiasis who was admitted as direct admission for possible A. fib. Patient was scheduled to have cystoscopy and possible stent for obstructing kidney stone. EKG read as having A. fib so she was directed [facility] for admission. Patient in the EKG looks [...] 16:27:00 EDT,06/28/21 16:27:00 ED (more content not included)...[facility]Result Comment: Electronically Signed By: CANDE HATHAWAY, Terrell\.aubrey\Date and Time Signed: 06/28/21 16:[id number] Note [id number]:127[facility]* Diagnosis AF (paroxysmal atrial fibrillation) (HCC)- Primary Atrial fibrillation [facility] Diagnosis Paroxysmal atrial fibrillation (HCC)- Primary Atrial fibrillation [facility] Diagnosis Primary osteoarthritis of left hip- Primary Primary localized osteoarthrosis, pelvic region and thigh [facility]* Diagnosis Right arm weakness- Primary Other musculoskeletal symptoms referable to limbs [facility] Diagnosis Neck pain- Primary Cervicalgia [facility]* Diagnosis Primary osteoarthritis of left hip- Primary Primary localized osteoarthrosis, pelvic region and thigh [facility] Diagnosis Thyroid nodule Nontoxic uninodular goiter [facility] Diagnosis Thyroid nodule- Primary Nontoxic uninodular goiter [facility] Diagnosis BMI 50.0-59.9, adult (HCC)- Primary Body Mass Index 50.0-59.9, adult Primary osteoarthritis of left hip Primary localized osteoarthrosis, pelvic region and thigh Type 2 diabetes mellitus with hyperglycemia, unspecified whether fci insulin use ([facility]) [facility]* Diagnosis Cervical disc disorder with radiculopathy- Primary Brachial neuritis or radiculitis nos Weakness of right upper extremity Other musculoskeletal symptoms referable to limbs [facility] noteNo assessment information [facility] Work Phone: Evaluation note* Diagnosis Primary osteoarthritis of left hip- Primary Primary localized osteoarthrosis, pelvic region and thigh [facility]* Diagnosis Gastroesophageal reflux disease, unspecified whether esophagitis present- Primary Screening for colon cancer Special screening for malignant neoplasms, colon Hiatal hernia Diaphragmatic hernia without mention of obstruction or gangrene [facility] Diagnosis Onset Date Resolution Status Multiple thyroid nodules u [facility] Work Phone: Evaluation note* Diagnosis Malignant neoplasm of left female breast, unspecified estrogen receptor status, unspecified site of breast (HCC)- Primary [facility] Diagnosis Malignant neoplasm of left female breast, unspecified estrogen receptor status, unspecified site of breast (HCC) Invasive lobular carcinoma of breast in female (HCC) [facility]* Diagnosis Invasive lobular carcinoma of breast in female (HCC)- Primary Invasive lobular carcinoma of breast in female (HCC) [facility]* Diagnosis Preop examination- Primary Preoperative [...] in female (HCC) [facility]* Diagnosis Invasive lobular carcinoma of breast in female (HCC) Malignant neoplasm of left breast in female, estrogen receptor positive, unspecified site of breast (HCC) Pre-op testing Preoperative examination, unspecified [facility] Diagnosis Invasive lobular carcinoma of breast in female (HCC)- Primary [facility] Diagnosis 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)- Primary S/P left mastectomy Acquired absence of breast and nipple Invasive lobular carcinoma of breast in female (HCC) [facility] Diagnosis Preoperative clearance- Primary Preoperative [...] female (HCC)- Primary [facility] Diagnosis Invasive lobular carcinoma of breast in female (HCC) [facility] Diagnosis Invasive lobular carcinoma of breast in female (HCC)- Primary [facility] Diagnosis Invasive lobular carcinoma of breast in female (HCC)- Primary [facility] Diagnosis Invasive lobular carcinoma of breast in female (HCC)- Primary Post-operative state Other postprocedural status [facility] Diagnosis Invasive lobular carcinoma of breast in female (HCC)- Primary [facility] Diagnosis Invasive lobular carcinoma of breast in female (HCC) [facility] Diagnosis Invasive lobular carcinoma of breast in female (HCC)- Primary [facility]* Diagnosis Chest pain, unspecified type- Primary Invasive lobular carcinoma of breast in female (HCC) Generalized edema Edema [facility] Diagnosis Chest pain, unspecified type Invasive lobular carcinoma of breast in female (HCC) Generalized edema Edema [facility]* Diagnosis Invasive lobular carcinoma of breast in female (HCC)- Primary [facility] Diagnosis Invasive lobular carcinoma of breast in female (HCC)- Primary [facility] Diagnosis Invasive lobular carcinoma of breast in female (HCC) [facility] Diagnosis Invasive lobular carcinoma of breast in female (HCC)- Primary Jessica infection Candidiasis of unspecified site [facility]* Diagnosis Invasive lobular carcinoma of breast in female (HCC)- Primary [facility] Diagnosis Invasive lobular carcinoma of breast in female (HCC)- Primary [facility]* Diagnosis Invasive lobular carcinoma of breast in female (HCC) [facility]* Diagnosis Invasive lobular carcinoma of breast in female (HCC)- Primary Jessica infection Candidiasis of unspecified site [facility]* Diagnosis Invasive lobular carcinoma of breast in female (HCC) Jessica infection Candidiasis of unspecified site [facility]* Diagnosis Invasive lobular carcinoma of breast in female (HCC)- Primary S/P mastectomy, left [facility] Diagnosis Invasive lobular carcinoma of breast in female (HCC)- Primary [facility] Diagnosis Invasive lobular carcinoma of breast in female (HCC) [facility]* Diagnosis Invasive lobular carcinoma of breast in female (HCC)- Primary Cutaneous abscess of groin Cellulitis and abscess of trunk [facility] Diagnosis Invasive lobular carcinoma of breast in female (HCC)- Primary Cutaneous abscess of groin Cellulitis and abscess of trunk [facility]* Diagnosis Invasive lobular carcinoma of breast in female (HCC)- Primary Mass of right breast, unspecified quadrant Other abnormal and inconclusive findings on diagnostic imaging of breast Jessica infection Candidiasis of unspecified site Diverticulitis Diverticulitis of colon (without mention of hemorrhage) Cutaneous abscess of groin Cellulitis and abscess of trunk [facility]* Diagnosis Mass of right breast, unspecified quadrant Invasive lobular carcinoma of breast in female (HCC) Other abnormal and inconclusive findings on diagnostic imaging of breast Elevated transaminase level Nonspecific elevation of levels of transaminase or lactic acid dehydrogenase (LDH) [facility]* Diagnosis Invasive lobular carcinoma of breast in female (HCC)- Primary [facility] Diagnosis Invasive lobular carcinoma of breast in female (HCC)- Primary [facility] Diagnosis Invasive lobular carcinoma of breast in female (HCC)- Primary [facility] Diagnosis Invasive lobular carcinoma of breast in female (HCC) [facility]* Diagnosis Invasive lobular carcinoma of breast in female (HCC)- Primary Body mass index (BMI) 50.0-59.9, adult ([facility]) Encounter for screening for osteoporosis Special screening for osteoporosis Asymptomatic postmenopausal status documented in this encounter [facility] note* Diagnosis Combined forms of age-related cataract of both eyes- Primary Other and combined forms of senile cataract documented in this encounter [facility] note* Diagnosis Invasive lobular carcinoma of breast in female (HCC)- Primary documented in this encounter [facility] note* Diagnosis Pre-op evaluation- Primary Preoperative examination, unspecified Atrial tachycardia, paroxysmal (HCC) Paroxysmal supraventricular tachycardia Primary hypertension Unspecified essential hypertension Mixed hyperlipidemia Gastroesophageal reflux disease, unspecified whether esophagitis present Morbid obesity with BMI of 50.0-59.9, adult ([facility]) Morbid obesity PETERSON (dyspnea on exertion) Other [...] unspecified whether rheumatoid factor present ([facility]) Preoperative clearance- Primary Preoperative examination, unspecified Mixed hyperlipidemia Primary hypertension Unspecified essential hypertension Palpitations PETERSON (dyspnea on exertion) Other dyspnea and respiratory abnormality Disorder of mitral valve Mitral valve disorders Morbid obesity (HCC) Morbid obesity Edema, unspecified type 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), idiopathic Rheumatoid arthritis, involving unspecified site, unspecified whether rheumatoid factor present ([facility]) Invasive lobular carcinoma of breast in female (HCC)- Primary Combined forms of age-related cataract of both eyes Other and combined forms of senile cataract Combined forms of age-related cataract of both eyes Other and combined forms of senile cataract documented in this encounter [facility] note* Diagnosis Pre-op evaluation- Primary Preoperative examination, unspecified Atrial tachycardia, paroxysmal (HCC) Paroxysmal supraventricular tachycardia Primary hypertension Unspecified essential hypertension Mixed hyperlipidemia Gastroesophageal reflux disease, unspecified whether esophagitis present Morbid obesity with BMI of 50.0-59.9, adult ([facility]) Morbid obesity PETERSON (dyspnea on exertion) Other [...] of senile cataract [facility] Diagnosis Pre-op evaluation- Primary Preoperative [...] of senile cataract documented in this encounter [facility] note* Diagnosis Pre-op evaluation- Primary Preoperative [...] unspecified whether rheumatoid factor present ([facility]) Preoperative clearance- Primary Preoperative examination, unspecified Mixed hyperlipidemia Primary hypertension Unspecified essential hypertension Palpitations PETERSON (dyspnea on exertion) Other dyspnea and respiratory abnormality Disorder of mitral valve Mitral valve disorders Morbid obesity (HCC) Morbid obesity Edema, unspecified type 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), idiopathic Rheumatoid arthritis, involving unspecified site, unspecified whether rheumatoid factor present ([facility]) Multiple thyroid nodules- Primary Nontoxic multinodular goiter Combined forms of age-related cataract of both eyes Other and combined forms of senile cataract Combined forms of age-related cataract of both eyes Other and combined forms of senile cataract documented in this encounter [facility] note* Diagnosis Pre-op evaluation- Primary Preoperative [...] unspecified whether rheumatoid factor present ([facility]) Preoperative clearance- Primary Preoperative examination, unspecified Mixed [...] of senile cataract [facility] Diagnosis Pre-op evaluation- Primary Preoperative examination, unspecified Atrial tachycardia, paroxysmal (HCC) Paroxysmal supraventricular tachycardia Primary hypertension Unspecified essential hypertension Mixed hyperlipidemia Gastroesophageal reflux disease, unspecified whether esophagitis present Morbid obesity with BMI of 50.0-59.9, adult ([facility]) Morbid obesity PETERSON (dyspnea on exertion) Other [...] 50.81 kg/m . [facility] Diagnosis Pre-op evaluation- Primary Preoperative [...] of senile cataract [facility] Diagnosis Primary osteoarthritis of left hip Primary localized osteoarthrosis, pelvic region and thigh Pre-op evaluation- Primary Preoperative examination, unspecified Atrial tachycardia, paroxysmal (HCC) Paroxysmal supraventricular tachycardia Primary hypertension Unspecified essential hypertension Mixed hyperlipidemia Gastroesophageal reflux disease, unspecified whether esophagitis present Morbid obesity with BMI of 50.0-59.9, adult ([facility]) Morbid obesity PETERSON (dyspnea on exertion) Other [...] of senile cataract [facility] Diagnosis Pre-op evaluation- Primary Preoperative examination, unspecified Atrial tachycardia, paroxysmal (HCC) Paroxysmal supraventricular tachycardia Primary hypertension Unspecified essential hypertension Mixed hyperlipidemia Gastroesophageal reflux disease, unspecified whether esophagitis present Morbid obesity with BMI of 50.0-59.9, adult ([facility]) Morbid obesity PETERSON (dyspnea on exertion) Other [...] of senile cataract [facility] Diagnosis Pre-op evaluation- Primary Preoperative examination, [...] of senile cataract [facility] Diagnosis Pre-op evaluation- Primary Preoperative examination, [...] of senile cataract [facility] Diagnosis Pre-op evaluation- Primary Preoperative [...] whether acute cor pulmonale present ([facility]) Invasive lobular carcinoma of breast in female ([facility]) Primary hypertension Unspecified essential hypertension Mixed hyperlipidemia Palpitations PETERSON (dyspnea on exertion) Other dyspnea and respiratory abnormality Disorder of mitral valve Mitral valve disorders Rheumatoid arthritis, involving unspecified site, unspecified whether rheumatoid factor present ([facility]) Gastroesophageal reflux disease, unspecified whether esophagitis present Status post cataract surgery, left- Primary Combined forms of age-related cataract of right eye Other and combined forms of senile cataract Combined forms of age-related cataract of both eyes Other and combined forms of senile cataract [facility] Diagnosis Pre-op evaluation- Primary Preoperative examination, unspecified Atrial tachycardia, paroxysmal ([facility]) Paroxysmal supraventricular tachycardia Primary hypertension Unspecified essential hypertension Mixed hyperlipidemia Gastroesophageal reflux disease, unspecified whether esophagitis present Morbid obesity with BMI of 50.0-59.9, adult ([facility]) Morbid obesity PETEROSN (dyspnea on exertion) Other dyspnea and respiratory [...] unspecified whether rheumatoid factor present ([facility]) Preoperative clearance- Primary Preoperative examination, unspecified Mixed [...] Nontoxic multinodular goiter documented in this encounter [facility] note* Diagnosis Pre-op evaluation- Primary Preoperative [...] cataract surgery, left [facility] Diagnosis Edema, unspecified type [facility] Diagnosis Pre-op evaluation- Primary Preoperative examination, [...] cataract surgery, left documented in this encounter [facility] note* Diagnosis Pre-op evaluation- Primary Preoperative [...] in female (HCC) [facility] Diagnosis Pre-op evaluation- Primary Preoperative examination, unspecified Atrial tachycardia, paroxysmal (HCC) Paroxysmal supraventricular tachycardia Primary hypertension Unspecified essential hypertension Mixed hyperlipidemia Gastroesophageal reflux disease, unspecified whether esophagitis present Morbid obesity with BMI of 50.0-59.9, adult ([facility]) Morbid obesity PETERSON (dyspnea on exertion) Other [...] in female (HCC) [facility] Diagnosis Pre-op evaluation- Primary Preoperative [...] cataract surgery, left documented in this encounter [facility] note* Diagnosis Pre-op evaluation- Primary Preoperative [...] Nontoxic multinodular goiter documented in this encounter [facility] note* Diagnosis Pre-op evaluation- Primary Preoperative [...] female (HCC)- Primary [facility] Diagnosis Pre-op evaluation- Primary Preoperative examination, [...] female (HCC)- Primary documented in this encounter [facility] note* Diagnosis Pre-op evaluation- Primary Preoperative examination, unspecified Atrial tachycardia, paroxysmal ([facility]) Paroxysmal supraventricular tachycardia Primary hypertension Unspecified essential hypertension Mixed hyperlipidemia Gastroesophageal reflux disease, unspecified whether esophagitis present Morbid obesity with BMI of 50.0-59.9, adult ([facility]) Morbid obesity PETERSON (dyspnea on exertion) Other [...] Preoperative examination, unspecified [facility] Diagnosis Pre-op evaluation- Primary Preoperative examination, [...] Nontoxic multinodular goiter [facility]* Diagnosis Pre-op evaluation- Primary Preoperative examination, [...] Multiple thyroid nodules- Primary Nontoxic multinodular goiter Multiple thyroid nodules Nontoxic multinodular goiter documented in this encounter [facility] note* Diagnosis Pre-op evaluation- Primary Preoperative [...] in female (HCC) [facility] Diagnosis Edema, unspecified type [facility] Pre-op evaluation- Primary Preoperative [...] female (HCC)- Primary documented in this encounter [facility] note* Diagnosis Pre-op evaluation- Primary Preoperative [...] in female (HCC) [facility] Diagnosis Pre-op evaluation- Primary Preoperative examination, [...] carcinoma of breast in female (HCC)- Primary Elevated serum creatinine Other nonspecific findings on examination of blood Lymphedema Other lymphedema Inconclusive mammogram Encounter for screening mammogram for malignant neoplasm of breast Other screening mammogram [facility] Diagnosis Edema, unspecified type- Primary [facility] Diagnosis 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 (CMS-HCC) documented [facility] SystemEvaluation note* Diagnosis 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- Primary Seropositive rheumatoid arthritis ([facility]) Severe obesity (BMI >= 40) ([facility]) Hypertension, unspecified type Other acute pulmonary embolism without acute cor pulmonale ([facility]) [facility]* Diagnosis Cancer of overlapping sites of left breast ([facility])- Primary documented [facility]* Diagnosis Right non-suppurative otitis media- Primary Nonsuppurative otitis media, not specified as acute or chronic Acute recurrent sinusitis, unspecified location Acute rhinitis Acute nasopharyngitis (common cold) documented [facility]* Diagnosis ASCVD (arteriosclerotic cardiovascular disease) Unspecified cardiovascular disease documented in this [facility]* Diagnosis 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 ([facility])- Primary documented in this encounter [facility]* Diagnosis 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 ([facility])- Primary Diuresis Polyuria Hospital discharge follow-up Other follow-up examination Diastolic dysfunction with acute on chronic heart failure ([facility]) Primary hypertension Unspecified essential hypertension Primary invasive malignant neoplasm of female breast, left ([facility]) documented [facility]* Diagnosis Intertrigo- Primary Other specified erythematous condition Jessica infection Candidiasis of unspecified site documented in this [facility]* Diagnosis Seropositive rheumatoid arthritis ([facility])- Primary Other acute pulmonary embolism without acute cor pulmonale ([facility]) Edema, unspecified type Hypertension, unspecified type Severe obesity (BMI >= 40) ([facility]) Cancer of overlapping sites of left breast ([facility]) Lower leg edema Hip pain, unspecified laterality documented in this encounter [facility]* Diagnosis Jessica infection- Primary Candidiasis of unspecified site documented in this encounter [facility]* Diagnosis Hypertension, unspecified type [facility] Diagnosis Hypertension, unspecified type documented in this encounter [facility]* Diagnosis Medicare annual wellness visit, subsequent- Primary Seropositive rheumatoid arthritis ([facility]) Hip pain, unspecified laterality Polyarthralgia Pain in joint, multiple sites documented in this encounter [facility]* Diagnosis Spinal stenosis, unspecified spinal region- Primary Seropositive rheumatoid arthritis ([facility]) Right non-suppurative otitis media Nonsuppurative otitis media, not specified as acute or chronic Primary osteoarthritis of both knees documented in this encounter [facility]* Diagnosis Hip pain, unspecified laterality documented in this encounter [facility]* Diagnosis Hypertension, unspecified type documented in this encounter [facility]* Diagnosis ASCVD (arteriosclerotic cardiovascular disease) Unspecified cardiovascular disease Edema, unspecified type documented in this encounter [facility]* Diagnosis Hip pain, unspecified laterality documented in this [facility]* Diagnosis Pre-op evaluation- Primary Preoperative examination, unspecified Atrial tachycardia, paroxysmal ([facility]) Paroxysmal supraventricular tachycardia Primary hypertension Unspecified essential hypertension Mixed hyperlipidemia Gastroesophageal reflux disease, unspecified whether esophagitis present Morbid obesity with BMI of 50.0-59.9, adult ([facility]) Morbid obesity PETERSON (dyspnea on exertion) Other [...] unspecified whether rheumatoid factor present ([facility]) Preoperative clearance- Primary Preoperative examination, unspecified Mixed [...] Gastroesophageal reflux disease, unspecified whether esophagitis present H/O left mastectomy- Primary Acquired absence of breast and nipple [facility] Edema, unspecified type documented [facility]* Diagnosis Pre-op evaluation- Primary Preoperative [...] female (HCC)- Primary documented in this encounter [facility] note* Diagnosis Pre-op evaluation- Primary Preoperative [...] female (HCC)- Primary documented in this encounter [facility] note* Diagnosis Pre-op evaluation- Primary Preoperative [...] in female (HCC) [facility] Diagnosis Pre-op evaluation- Primary Preoperative examination, [...] in female (HCC) [facility] Diagnosis Pre-op evaluation- Primary Preoperative examination, [...] carcinoma of breast in female (HCC)- Primary Hiatal hernia Diaphragmatic hernia without mention of obstruction or gangrene documented in this encounter [facility] note* Diagnosis Pre-op evaluation- Primary Preoperative [...] female (HCC)- [facility]- Primary Preoperative [...] female (HCC)- Primary [facility] Diagnosis Pre-op evaluation- Primary Preoperative examination, [...] Gastroesophageal reflux disease, unspecified whether esophagitis present Painful scar- Primary Scar condition and fibrosis of skin Excess skin Inclusion cyst Sebaceous cyst Inclusion cyst Sebaceous cyst [facility] Diagnosis Pre-op evaluation- Primary Preoperative [...] Gastroesophageal reflux disease, unspecified whether esophagitis present Inclusion cyst- Primary Sebaceous cyst Inclusion cyst Sebaceous cyst [facility] Diagnosis Pre-op evaluation- Primary Preoperative examination, [...] Gastroesophageal reflux disease, unspecified whether esophagitis present Primary osteoarthritis of left hip- Primary Primary localized osteoarthrosis, pelvic region and thigh Pain in left hip Pain in joint, pelvic region and thigh Pain in left hip Pain in joint, pelvic region and thigh Inclusion cyst Sebaceous cyst documented in this encounter [facility] note* Diagnosis Pre-op evaluation- Primary Preoperative [...] carcinoma of breast in female (HCC)- Primary Inclusion cyst Sebaceous cyst documented in this encounter [facility] note* Diagnosis Pre-op evaluation- Primary Preoperative [...] Gastroesophageal reflux disease, unspecified whether esophagitis present Pain in left hip Pain in joint, pelvic region and thigh Inclusion cyst Sebaceous cyst [facility] Diagnosis Encounter for screening mammogram for malignant neoplasm of breast- Primary documented [facility]* Diagnosis Pre-op evaluation- Primary Preoperative examination, unspecified Atrial tachycardia, paroxysmal (HCC) Paroxysmal supraventricular tachycardia Primary hypertension Unspecified essential hypertension Mixed hyperlipidemia Gastroesophageal reflux disease, unspecified whether esophagitis present Morbid obesity with BMI of 50.0-59.9, adult (HCC) Morbid obesity PETERSON (dyspnea on exertion) Other dyspnea and respiratory abnormality Preop examination- Primary Preoperative examination, unspecified Mixed hyperlipidemia Primary hypertension Unspecified essential hypertension Palpitations PETRESON (dyspnea on exertion) Other dyspnea and respiratory [...] Gastroesophageal reflux disease, unspecified whether esophagitis present Difficulty breathing- Primary Other dyspnea and respiratory abnormality Hiatal hernia Diaphragmatic hernia without mention of obstruction or gangrene Class 3 severe obesity due to excess calories with body mass index (BMI) of 50.0 to 59.9 in adult, unspecified whether serious comorbidity present (HCC) Gastroesophageal reflux disease without esophagitis Esophageal reflux Inclusion cyst Sebaceous cyst [facility] Diagnosis Pre-op evaluation- Primary Preoperative [...] Gastroesophageal reflux disease, unspecified whether esophagitis present Stage 3 chronic kidney disease, unspecified whether stage 3a or 3b CKD (HCC)- Primary Primary hypertension Unspecified essential hypertension Invasive lobular carcinoma of breast in female (HCC) Abnormal finding of blood chemistry, unspecified Inclusion cyst Sebaceous cyst [facility] Diagnosis Pre-op evaluation- Primary Preoperative examination, unspecified Atrial tachycardia, paroxysmal (HCC) Paroxysmal supraventricular tachycardia Primary hypertension Unspecified essential hypertension Mixed hyperlipidemia Gastroesophageal reflux disease, unspecified whether esophagitis present Morbid obesity with BMI of 50.0-59.9, adult ([facility]) Morbid obesity PETERSON (dyspnea on exertion) Other [...] Gastroesophageal reflux disease, unspecified whether esophagitis present Inclusion cyst Sebaceous cyst [facility] Diagnosis Pre-op evaluation- Primary Preoperative examination, [...] Gastroesophageal reflux disease, unspecified whether esophagitis present Inclusion cyst- Primary Sebaceous cyst [facility] Diagnosis Pre-op evaluation- Primary Preoperative examination, [...] reflux disease, unspecified whether esophagitis present Pre-op evaluation- Primary Preoperative examination, unspecified Primary hypertension Unspecified essential hypertension Chronic obstructive pulmonary disease, unspecified COPD type (HCC) Gastroesophageal reflux disease, unspecified whether esophagitis present Stage 3a chronic kidney disease (HCC) Rheumatoid arthritis, involving unspecified site, unspecified whether rheumatoid factor present (HCC) Pulmonary embolism, other, unspecified chronicity, unspecified whether acute cor pulmonale present (HCC) Palpitations Morbid obesity (HCC) Morbid obesity Mixed hyperlipidemia Disorder of mitral valve Mitral valve disorders * Assessment & Plan Note - Hellen Matias APRN.CNS - 03/19/2025 10:49 AM EDT Associated Problem(s): Stage 3a chronic kidney disease (HCC) Assessment: BUN Date Value Ref Range Status 12/24/2024 18 7 - 21 mg/dL Final Currently stable * Assessment & Plan Note - Hellen Matias APRN.CNS - 03/19/2025 10:48 AM EDT Associated Problem(s): RA (rheumatoid arthritis) (HCC) Assessment: Follows with Dr. Celia Lewis * Assessment & Plan Note - Hellen Matias APRN.CNS - 03/19/2025 10:48 AM EDT Associated Problem(s): Pulmonary embolism (HCC) Assessment: PE 11/05/2023 was on Eliquis for 3 months * Assessment & Plan Note - Hellen Matias APRN.CNS - 03/19/2025 10:47 AM EDT Associated Problem(s): Primary hypertension Assessment: takes Metoprolol,Losartan last BP in epic of 02/23/25 156/70 * Assessment & Plan Note - Hellen Matias APRN.CNS - 03/19/2025 10:47 AM EDT Associated Problem(s): Palpitations Assessment: evaluated for possible atrial fibrillation on metoprolol Follows with Dr. John Dc ( Cardiology,) currently stable * Assessment & Plan Note - Hellen Matias APRN.CNS - 03/19/2025 10:46 AM EDT Associated Problem(s): Morbid obesity (HCC) Assessment: BMI 48.8 * Assessment & Plan Note - Hellen Matias APRN.CNS - 03/19/2025 10:46 AM EDT Associated Problem(s): Mixed hyperlipidemia Assessment: takes Lipitor,stable * Assessment & Plan Note - Hellen Matias APRN.CNS - 03/19/2025 10:45 AM EDT Associated Problem(s): GERD (gastroesophageal reflux disease) Assessment: trace mitral regurgitation per 08/2023 ECHO (+) systolic cardiac murmur * Assessment & Plan Note - Hellen Matias APRN.CNS - 03/19/2025 10:45 AM EDT Associated Problem(s): Disorder of mitral valve Assessment: trace mitral regurgitation per 08/2023 ECHO (+) systolic cardiac murmur * Assessment & Plan Note - Hellen Matias APRN.CNS - 03/19/2025 10:45 AM EDT Associated Problem(s): COPD (chronic obstructive pulmonary disease) (HCC) Assessment: states was told by machine fitter that she had ANIMAL ASSISTED THERAPIST but another told her she did not have it Does not use use inhaler Currently stable documented in this encounter [facility] note* Diagnosis Pre-op evaluation- Primary Preoperative [...] reflux disease, unspecified whether esophagitis present Pre-op evaluation- Primary Preoperative examination, unspecified Primary hypertension Unspecified essential hypertension Chronic obstructive pulmonary disease, unspecified COPD type (HCC) Gastroesophageal reflux disease, unspecified whether esophagitis present Stage 3a chronic kidney disease (HCC) Rheumatoid arthritis, involving unspecified site, unspecified whether rheumatoid factor present (HCC) Pulmonary embolism, other, unspecified chronicity, unspecified whether acute cor pulmonale present (HCC) Palpitations Morbid obesity (HCC) Morbid obesity Mixed hyperlipidemia Disorder of mitral valve Mitral valve disorders Invasive lobular carcinoma of breast in female (HCC) [facility] Diagnosis Encounter for screening mammogram for malignant neoplasm of breast [facility]* Diagnosis Pre-op evaluation- Primary Preoperative [...] reflux disease, unspecified whether esophagitis present Pre-op evaluation- Primary Preoperative examination, unspecified Primary hypertension Unspecified essential hypertension Chronic obstructive pulmonary disease, unspecified COPD type (HCC) Gastroesophageal reflux disease, unspecified whether esophagitis present Stage 3a chronic kidney disease (HCC) Rheumatoid arthritis, involving unspecified site, unspecified whether rheumatoid factor present (HCC) Pulmonary embolism, other, unspecified chronicity, unspecified whether acute cor pulmonale present (HCC) Palpitations Morbid obesity (HCC) Morbid obesity Mixed hyperlipidemia Disorder of mitral valve Mitral valve disorders Invasive lobular carcinoma of breast in female (HCC)- Primary [facility] Diagnosis Acute recurrent pansinusitis- Primary Vaginal candidiasis Candidiasis of vulva and vagina Yeast dermatitis [facility]* Diagnosis Pre-op evaluation- Primary Preoperative [...] reflux disease, unspecified whether esophagitis present Pre-op evaluation- Primary Preoperative examination, unspecified Primary hypertension Unspecified essential hypertension Chronic obstructive pulmonary disease, unspecified COPD type (HCC) Gastroesophageal reflux disease, unspecified whether esophagitis present Stage 3a chronic kidney disease (HCC) Rheumatoid arthritis, involving unspecified site, unspecified whether rheumatoid factor present (HCC) Pulmonary embolism, other, unspecified chronicity, unspecified whether acute cor pulmonale present (HCC) Palpitations Morbid obesity (HCC) Morbid obesity Mixed hyperlipidemia Disorder of mitral valve Mitral valve disorders Invasive lobular carcinoma of breast in female (HCC) [facility]* Diagnosis Pre-op evaluation- Primary Preoperative examination, [...] reflux disease, unspecified whether esophagitis present Pre-op evaluation- Primary Preoperative examination, unspecified Primary hypertension Unspecified essential hypertension Chronic obstructive pulmonary disease, unspecified COPD type (HCC) Gastroesophageal reflux disease, unspecified whether esophagitis present Stage 3a chronic kidney disease (HCC) Rheumatoid arthritis, involving unspecified site, unspecified whether rheumatoid factor present (HCC) Pulmonary embolism, other, unspecified chronicity, unspecified whether acute cor pulmonale present (HCC) Palpitations Morbid obesity (HCC) Morbid obesity Mixed hyperlipidemia Disorder of mitral valve Mitral valve disorders Invasive lobular carcinoma of breast in female (HCC)- Primary [facility] Diagnosis Acute recurrent pansinusitis [facility]* Diagnosis Pre-op evaluation- Primary Preoperative [...] reflux disease, unspecified whether esophagitis present Pre-op evaluation- Primary Preoperative examination, unspecified Primary hypertension Unspecified essential hypertension Chronic obstructive pulmonary disease, unspecified COPD type (HCC) Gastroesophageal reflux disease, unspecified whether esophagitis present Stage 3a chronic kidney disease (HCC) Rheumatoid arthritis, involving unspecified site, unspecified whether rheumatoid factor present (HCC) Pulmonary embolism, other, unspecified chronicity, unspecified whether acute cor pulmonale present (HCC) Palpitations Morbid obesity (HCC) Morbid obesity Mixed hyperlipidemia Disorder of mitral valve Mitral valve disorders Invasive lobular carcinoma of breast in female (HCC)- Primary Bilateral leg edema Edema Osteopenia of multiple sites [facility] Diagnosis Pre-op evaluation- Primary Preoperative examination, [...] reflux disease, unspecified whether esophagitis present Pre-op evaluation- Primary Preoperative examination, unspecified Primary hypertension Unspecified essential hypertension Chronic obstructive pulmonary disease, unspecified COPD type (HCC) Gastroesophageal reflux disease, unspecified whether esophagitis present Stage 3a chronic kidney disease (HCC) Rheumatoid arthritis, involving unspecified site, unspecified whether rheumatoid factor present (HCC) Pulmonary embolism, other, unspecified chronicity, unspecified whether acute cor pulmonale present (HCC) Palpitations Morbid obesity (HCC) Morbid obesity Mixed hyperlipidemia Disorder of mitral valve Mitral valve disorders Dyspnea, unspecified type- Primary [facility] Diagnosis Pre-op evaluation- Primary Preoperative examination, [...] reflux disease, unspecified whether esophagitis present Pre-op evaluation- Primary Preoperative examination, unspecified Primary hypertension Unspecified essential hypertension Chronic obstructive pulmonary disease, unspecified COPD type (HCC) Gastroesophageal reflux disease, unspecified whether esophagitis present Stage 3a chronic kidney disease (HCC) Rheumatoid arthritis, involving unspecified site, unspecified whether rheumatoid factor present (HCC) Pulmonary embolism, other, unspecified chronicity, unspecified whether acute cor pulmonale present (HCC) Palpitations Morbid obesity (HCC) Morbid obesity Mixed hyperlipidemia Disorder of mitral valve Mitral valve disorders Dyspnea and respiratory abnormalities- Primary Other dyspnea and respiratory abnormality Hiatal hernia Diaphragmatic hernia without mention of obstruction or gangrene Other idiopathic scoliosis, unspecified spinal region Class 3 severe obesity with body mass index (BMI) of 45.0 to 49.9 in adult, unspecified obesity type, unspecified whether serious comorbidity present (HCC) documented in this encounter [facility] general Narrative - Reported* Type Description Date Medical History acid reflux Medical History Hypertension Medical History hypercholesterolemia Medical History Scoliosis Surgical History back surgery x2 Surgical History C section Surgical History kidney stone Surgical History knee replacement bilateral Hospitalization History see above [employer] Other InstructionsNot on filedocumented in this encounter [...] through Care Everywhere. * Heart Failure, Adult (Estonian) [facility] documented in this [facility] System[facility]ructionsNot on file documented in this [facility] SystemInstructionsNot on file documented in this encounterPro[facility]ica [facility] SystemReason for referral (narrative)* Outpatient Procedure (Routine) - Pending Review Specialty Diagnoses / Procedures Referred By Binu t Referred To [facility] Diagnoses AF (paroxysmal atrial fibrillation) (HCC) Procedures ECHO ECHO TTHRC R-T 2D W/WOM-MODE COMPL SPEC&COLR D John Dc MD [address] [place] [address] [facility] [address] [place] [id number] Referral ID Status Reason Start Date Expiration Date Visits Requested Visits Authorized [id number] Pending Review Auto-Generat ed Referral 12/08/2021 12/08/2022 1 1 [facility] for referral (narrative)* Diagnostic Procedure Only (Routine) - Closed Specialty Diagnoses / Procedures Referred By Contac t Referred To Contact [facility] IMAG[facility] Diagnoses Thyroid nodule Procedures US THYROID/PARATHYROID US SOFT TISSUE HEAD & NECK REAL TIME IMGE Lopez Servin DO [address] [place] [address] [facility] Referral ID Status Reason Start Date Expiration Date V isits Requested Visits Authorized [id number] Closed Auto-Generate d Referral 03/15/2022 04/14/2023 1 1 [facility] for referral (narrative)* Outpatient Procedure (Routine) - Authorized Specialty Diagnoses / Procedures Referred By Contac t Referred To Contact [facility] Diagnoses Gastroesophageal reflux disease, unspecified whether esophagitis present Hiatal hernia Procedures EGD DIAGNOSTIC ESOPHAGOGASTRODUODENOSC OPY TRANSORAL DIAGNOSTIC Nell Trujillo APRN.CNP [address] [place] [address] [place] [address] [facility] [address] [place] [id number] Referral ID Status Reason Start Date Expiration Date Visits Requested Visits Authorized [id number] Authorized Auto-Generat ed Referral 09/19/2022 09/19/2023 1 1 * Outpatient Procedure (Routine) - Authorized Specialty Diagnoses / Procedures Referred By Contac t Referred To Contact [facility] Diagnoses Screening for colon cancer Procedures COLONOSCOPY SCREENING COLONOSCOPY FLX DX W/COLLJ SPEC WHEN PFRMD Ronnie Nell, 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 [address] [place] [address] [place] [address] [facility] [address] [place] [address] Referral ID Status Reason Start Date Expiration Date Visits Requested Visits Authorized [id number] Authorized Auto-Generat ed Referral 09/19/2022 09/19/[address] [facility] for referral (narrative)* Diagnostic Procedure Only (Routine) - Pending Review Specialty Diagnoses / Procedures Referred By Binu t Referred To Contact BR IMAGING Diagnoses Malignant neoplasm of left female breast, unspecified estrogen receptor status, unspecified site of breast (HCC) Procedures US AXILLA ONLY LEFT US LMTD JOINT/OTH NONVASC XTR STR[place] R-[place] W/[place] [address] [place] [id number] [facility] [address] [place] [phone] Referral ID Status Reason Start Date Expiration Date Visits Requested Visits Authorized [id number] Pending Review Auto-Generat ed Referral 08/15/[address] [facility] for referral (narrative)* Diagnostic Procedure Only (Routine) - Closed Specialty Diagnoses / Procedures Referred By Contdanita t Referred To Contact BR IMAGING Diagnoses Malignant neoplasm of left female breast, unspecified estrogen receptor status, unspecified site of breast (HCC) Procedures US AXILLA ONLY LEFT US LMTD JOINT/OTH NONVASC XTR STRUX R-T W/[place] [address] [place] [address] [facility] [address] [place] [address] Referral ID Status Reason Start Date Expiration Date V isits Requested Visits Authorized [id number] Closed Auto-Generate d Referral 07/17/2023 08/15/2024 1 1 [facility] for referral (narrative)* Diagnostic Procedure Only [...] TIME WITH IMAGE LIMITED Cathy Templeton PA-C [address] [place] [address] [facility] [address] [place] [phone] Referral ID Status Reason Start Date Expiration Date Visits Requested Visits Authorized [id number] Pending Review Auto-Generat ed Referral 01/14/2024 02/12/2025 [...] MAMMOGRAPHY COMPUTER-AIDED DETCJ UNI Cathy Templeton PA-C [address] [place] [address] [facility] [address] [place] [address] Referral ID Status Reason Start Date Expiration Date Visits Requested Visits Authorized [id number] Pending Review Auto-Generat ed Referral 01/14/2024 02/12/2025 1 1 [facility] for referral (narrative)* Diagnostic Procedure Only (Routine) - Pending Review Specialty Diagnoses / Procedures Referred By Contac t Referred To Contact XR IMAGING Diagnoses Encounter for screening for osteoporosis Asymptomatic postmenopausal status Procedures DXA-AXIAL SKELETON WITH VFA DXA BONE DENSITY STUDY AXIAL SKELETON Mitch Neri MD [address] [place] [address] [place] [address] [place] [address] Referral ID Status Reason Start Date Expiration Date Visits Requested Visits Authorized [id number] Pending Review Auto-Generat ed Referral 03/03/2024 04/02/2025 1 1 [facility] for referral (narrative)* Diagnostic Procedure Only (Routine) - Authorized Specialty Diagnoses / Procedures Referred By Contac t Referred To Contact US IMAGING Diagnoses Multiple thyroid nodules Procedures US THYROID/PARATHYROID US SOFT TISSUE HEAD & NECK REAL TIME IMGE Sandy Hillman MD, PhD [address] [place] [address] [place] [address] Referral ID Status Reason Start Date Expiration Date Visits Requested Visits Authorized [id number] Authorized Auto-Generat ed Referral 05/05/2024 06/04/2025 1 1 [facility] for referral (narrative)* Diagnostic Procedure Only (Routine) - Closed Specialty Diagnoses / Procedures [facility] XR [facility]AG[facility] Diagnoses Primary osteoarthritis of left hip Procedures XR HIP GENERAL 3V PELV/AP/LAT LEFT RADEX HIP UNILATERAL WITH PELVIS 2-3 VIEWS Nayan Yan, DO [address] [place] [address] [place] [address] Referral ID Status Reason Start Date Expiration Date V isits Requested Visits Authorized [id number] Closed Auto-Generate d Referral 03/23/2022 04/22/2023 1 1 [facility] for referral (narrative)* Outpatient Procedure (Routine) - New Request Specialty Diagnoses / Procedures Referred By Contac t Referred To Contact [facility] Diagnoses Invasive lobular carcinoma of breast in female (HCC) Procedures ECG COMPLETE ECG ROUTINE ECG W/LEAST 12 LDS W/I&R Mitch Neri MD [address] [place] [address] [facility] [address] [place] [address] Referral ID Status Reason Start Date Expiration Date Visits Requested Visits Authorized [id number] New Request Auto-Generat ed Referral 4 07/16/2025 1 1 * Outpatient Procedure (Routine) - New Request Specialty Diagnoses / Procedures Referred By Binu t Referred To Contact [facility] Diagnoses Invasive lobular carcinoma of breast in female (HCC) Procedures ECG COMPLETE ECG ROUTINE ECG W/LEAST 12 LDS W/I&R Mitch Neri MD [address] [place] [address] [address] Referral ID Status Reason Start Date Expiration Date Visits Requested Visits Authorized [id number] New Request Auto-Generat ed Referral 4 07/16/2025 1 1 [facility] Diagnostic Procedure Only (Routine) - New Request Specialty Diagnoses / Procedures Referred By Binu fontanez Referred To Contact BR IMAGING Diagnoses Invasive lobular carcinoma of breast in female (HCC) Encounter for screening mammogram for malignant neoplasm of breast Procedures TINO SCREENING W SULMA SCREENING DIGITAL BREAST TOMOSYNTHESIS BI SCREENING MAMMOGRAPHY BI 2-VIEW BREAST INC CAD Mitch Neri MD [address] [place] [address] [facility] [address] [place] [address] Referral ID Status Reason Start Date Expiration Date Visits Requested Visits Authorized [id number] New Request Auto-Generat ed Referral 12/30/2024 11/01/2025 1 1 * Consult, Test, Treat (Routine) - Authorized Specialty Diagnoses / Procedures Referred By Binu fontanez Referred To Contact Nephrology Diagnoses Elevated serum creatinine Procedures CONSULT TO NEPHROLOGY OFFICE/OUTPATIENT NEW HIGH MDM 60 MINUTES Mitch Neri MD [address] [place] [address] Referral ID Status Reason Start Date Expiration Date Visits Requested Visits Authorized [id number] Authorized PCP Requested Referral 10/02/2024 10/02/2025 1 1 * Consult, Test, Treat (Routine) - Authorized Specialty Diagnoses / Procedures Referred By Contac t Referred To Contact Plastic Surgery Diagnoses Invasive lobular carcinoma of breast in female (HCC) Lymphedema Procedures CONSULT TO PLASTIC SURGERY OFFICE/OUTPATIENT [facility] 60 MINUTES Mitch Neri MD [address] [place] [address] Referral ID Status Reason Start Date Expiration Date Visits Requested Visits Authorized [id number] Authorized PCP Requested Referral 10/02/2024 10/02/2025 1 1 [facility] for referral (narrative)* Consultation (Routine) - Authorized Specialty Diagnoses / Procedures Referred By Contac t Referred To Contact Rehabilitation Diagnoses Cancer of overlapping sites of left breast (CMS-HCC) Ollie Aponte MD [address] [place] [address] [facility] [address] [place] [address] Referral ID Status Reason Start Date Expiration Date V isits Requested Visits Authorized [id number] Authorized 01/28/2024 01/27/2025 1 1 Scheduling Instructions Potential for Lymphedema issues in Left Arm; s/p mastectomy, pending radiation [facility] for visit Narrative* Diagnostic Procedure Only (Routine) - Closed Specialty Diagnoses / Procedures Referred By Contac t Referred To Contact US IMAGING Diagnoses Thyroid nodule Procedures US THYROID/PARATHYROID US SOFT TISSUE HEAD & NECK REAL TIME IMGE Lopez Servin DO [address] [place] [address] Us Imaging Referral ID Status Reason Start Date Expiration Date V isits Requested Visits Authorized [id number] Closed Auto-Generate d Referral 03/15/2022 04/14/2023 1 1 [facility] for visit Narrative* Diagnostic Procedure Only (Routine) - Closed Specialty Diagnoses / Procedures Referred By Contac t Referred To Contact XR IMAGING Diagnoses Primary osteoarthritis of left hip Procedures XR HIP GENERAL 3V PELV/AP/LAT LEFT RADEX HIP UNILATERAL WITH PELVIS 2-3 VIEWS Nayan Yan, DO [address] [place] [address] [place] [address] Referral ID Status Reason Start Date Expiration Date V isits Requested Visits Authorized [id number] Closed Auto-Generate d Referral 03/23/2022 04/22/2023 1 1 [facility] for visit Narrative* Diagnostic Procedure Only (Routine) - Closed Specialty Diagnoses / Procedures Referred By Contac t Referred To Contact US IMAGING Diagnoses Multiple thyroid nodules Procedures US THYROID/PARATHYROID US SOFT TISSUE HEAD & NECK REAL TIME IMGE Sandy Hillman MD, PhD [address] [place] [address] [place] [address] Referral ID Status Reason Start Date Expiration Date V isits Requested Visits Authorized [id number] Closed Auto-Generate d Referral 05/05/2024 06/04/2025 1 1 [facility] for visit Narrative* Outpatient Procedure (Routine) - Closed Specialty Diagnoses / Procedures Referred By Contac t Referred To Contact [facility] Diagnoses Pre-op testing Procedures ECG COMPLETE ECG ROUTINE ECG W/LEAST 12 LDS W/I&[place] [address] [place] [address] [facility] [place] [address] [place] [address] Referral ID Status Reason Start Date Expiration Date V isits Requested Visits Authorized [id number] Closed Auto-Generate d Referral 07/23/2023 07/22/2024 1 1 [facility] for visit Narrative* Outpatient Procedure (Routine) - Closed Specialty Diagnoses / Procedures Referred By Contac t Referred To Contact [facility] [place] Diagnoses Invasive lobular carcinoma of breast in female (HCC) Procedures ECG COMPLETE ECG ROUTINE ECG W/LEAST 12 LDS W/I&R Mitch Neri MD [address] [place] [address] [facility] [place] [address] [place] [address] Referral ID Status Reason Start Date Expiration Date V isits Requested Visits Authorized [id number] Closed Auto-Generate d Referral 07/16/2024 07/16/2025 1 1 [facility] for visit Narrative* Outpatient Procedure (Routine) - Closed Specialty Diagnoses / Procedures Referred By Contdanita t Referred To Contact [facility] [place] Diagnoses Invasive lobular carcinoma of breast in female (HCC) Procedures ECG COMPLETE ECG ROUTINE ECG W/LEAST 12 LDS W/I&R Mitch Neri MD [address] [place] [address] Phone: tel: fax: [facility] [address] [address] Referral ID Status Reason Start Date Expiration Date V isits Requested Visits Authorized [id number] Closed Auto-Generate d Referral 07/16/2024 07/16/2025 1 1 [facility] for visit Narrative* [place] Prior Authorization (Routine) - Authorized Specialty Diagnoses / Procedures Referred By Binu t Referred To Contact Diagnoses Invasive lobular carcinoma of breast in female (HCC) Mitch Neri MD [address] [place] [address] Phone: tel: fax: Hematology/Oncology [address] [place] [address] Phone: tel: fax: Referral ID Status Reason Start Date Expiration Date V isits Requested Visits Authorized [id number] Authorized 03/03/2024 06/01/2024 99 99 [facility] Summary Purpose Family History No Family History Records Found Relationship Condition Age at Onset Recorded Date/T davis brother Hypertension Unknown father Unknown Heart disease Unknown Hypertension Unknown Not Specified Hypertension Unknown Unknown sister Hypertension Unknown Relationship Condition Age at Onset Recorded Date/T davis brother Hypertension Unknown father Unknown Heart disease Unknown Hypertension Unknown mother Hypertension Unknown Unknown sister Hypertension Unknown Advance Directives No Advanced Directives Records FoundDocuments on File Type Date Recorded Patient Medical Laboratory Technicians Expl anation Advance Directive(s) 12/22/2017 6:24 PM Documents on File Type Date Recorded Patient Medical Laboratory Technicians Expl anation Advance Directive(s) 12/22/2017 6:24 PM Documents on File Type Date Recorded Patient Medical Laboratory Technicians Expl anation Advance Directive(s) 03/15/2022 12:45 PM Advance Directive(s) 12/22/2017 6:24 PM Documents on File Type Date Recorded Patient Medical Laboratory Technicians Expl anation Advance Directive(s) 03/15/2022 12:45 PM Advance Directive(s) 12/22/2017 6:24 PM Advance Directive Response Recorded Date/ Time Advance Directives No January 04 9:04am Advance Directive Response Recorded Date/ Time Advance Directives No June 28, 2022 10:08am Advance Directive Response Recorded Date/ Time Advance Directives No June 28, 2022 11:08am Hospital Course Note HNO ID: [id number] Author: Tam willis (Res) Fredrick Service: Orthopaedic [...] dose, Starting on Sat09/06/22 at 1510, Until Talisha 09/06/22 at 1510 Given 09/06/2022 3:10 PM EST 40 mg Hi p, Left Reason for Referral Specialty Diagnoses / Procedures Referred By Contac t Referred To Contact Diagnoses 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 (CMS-HCC) Other acute pulmonary embolism without acute cor pulmonale (CMS-HCC) Procedures Vas venous duplex lwr bilateral Sunny Jenkins MD [address] [place] [address] Referral ID Status Reason Start Date Expiration Date V isits Requested Visits Authorized [id number] Pending Review 01/28/2024 01/27/2025 1 1 Specialty Diagnoses / Procedures Referred By Contac t Referred To Contact Radiology Diagnoses 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 (CMS-HCC) Procedures CT angiogram chest Sunny Jenkins MD [address] [place] [address] Referral ID Status Reason Start Date Expiration Date V isits Requested Visits Authorized [id number] Pending Review 01/28/2024 01/27/2025 1 1 Specialty Diagnoses / Procedures Referred By Contac t Referred To Contact [facility] Diagnoses Invasive lobular carcinoma of breast in female (HCC) Procedures CONSULT TO LYMPHEDEMA THERAPY OFFICE/OUTPATIENT NEW HIGH MDM 60 MINUTES Josef Austin MD [address] [place] [address] [facility] [place] [address] [place] [address] Referral ID Status Reason Start Date Expiration Date Visits Requested Visits Authorized [id number] Authorized Auto-Generat ed Referral 02/13/2024 02/12/2025 99 99 Specialty Diagnoses / Procedures Referred By Contac t Referred To Contact Radiation Oncology Diagnoses Invasive lobular carcinoma of breast in female (HCC) Procedures RAD/ONC CONSULT OFFICE/OUTPATIENT NEW HIGH [facility] 60 MINUTES Mitch Neri MD [address] [place] [address] Referral ID Status Reason Start Date Expiration Date Visits Requested Visits Authorized [id number] Authorized PCP Requested Referral 01/21/2024 01/20/2025 1 1 Specialty Diagnoses / Procedures Referred By Contac t Referred To Contact General Surgery Diagnoses Cutaneous abscess of groin Procedures CONSULT TO GENERAL SURGERY OFFICE/OUTPATIENT NEW HIGH MDM 60 MINUTES Mitch Neri MD [address] [place] [address] Referral ID Status Reason Start Date Expiration Date Visits Requested Visits Authorized [id number] Authorized PCP Requested Referral 01/07/2024 01/06/2025 1 1 Specialty Diagnoses / Procedures Referred By Contac t Referred To Contact CT IMAGING Diagnoses Chest pain, unspecified type Procedures CT CHEST W IVCON PE DIAGNOSTIC COMPUTED TOMOGRAPHY THORAX W/CONTRAST Brianna Renner, 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 [address] [place] [address] Ct [facility] [place] [address] Referral ID Status Reason Start Date Expiration Date Visits Requested Visits Authorized [id number] Pending Review Auto-Generat ed Referral 11/05/2023 12/04/2024 1 1 Specialty Diagnoses / Procedures Referred By Contac t Referred To Contact Diagnoses Cervical disc disorder with radiculopathy Weakness of right upper extremity Procedures CONSULT TO SPINE SURGERY OFFICE/OUTPATIENT [facility] 60-74 MINUTES Alberto Monsalve DO [address] [place] [address] Referral ID Status Reason Start Date Expiration Date Visits Requested Visits Authorized [id number] Authorized PCP Requested Referral 03/19/2022 03/19/2023 1 1 Specialty Diagnoses / Procedures Referred By Contac t Referred To Contact Nutrition Diagnoses BMI 50.0-59.9, adult (HCC) Type 2 diabetes mellitus with hyperglycemia, unspecified whether fci insulin use (HCC) Procedures CONSULT TO NUTRITION THERAPY OFFICE/OUTPATIENT [facility] 60-[place] [address] [place] [address] Referral ID Status Reason Start Date Expiration Date Visits Requested Visits Authorized [id number] Authorized PCP Requested Referral 04/03/2022 04/03/2023 1 1 Specialty Diagnoses / Procedures Referred By Contac t Referred To Contact Endocrinology Diagnoses Thyroid nodule Procedures CONSULT TO ENDOCRINOLOGY OFFICE/OUTPATIENT [facility] 60-74 MINUTES Lopez Salmon DO [address] [place] [address] Referral ID Status Reason Start Date Expiration Date Visits Requested Visits Authorized [id number] Authorized PCP Requested Referral 04/03/2022 04/03/2023 1 1 Specialty Diagnoses / Procedures Referred By Contac t Referred To Contact Orthopedics Diagnoses Primary osteoarthritis of left hip Procedures CONSULT TO ORTHOPAEDICS OFFICE/OUTPATIENT [facility] 60-74 MINUTES Nayan Yan DO [facility] [address] [place] [address] Referral ID Status Reason Start Date Expiration Date Visits Requested Visits Authorized [id number] Authorized PCP Requested Referral 03/23/2022 03/23/2023 1 1 Specialty Diagnoses / Procedures Referred By Contac t Referred To Contact XR IMAGING Diagnoses Primary osteoarthritis of left hip Procedures XR HIP GENERAL 3V PELV/AP/LAT LEFT RADEX HIP UNILATERAL WITH PELVIS 2-3 VIEWS Nayan Yan, DO [address] [address] Xr Imaging Referral ID Status Reason Start Date Expiration Date V isits Requested Visits Authorized [id number] Closed Auto-Generate d Referral 03/23/2022 04/22/2023 1 1 Specialty Diagnoses / Procedures Referred By Contac t Referred To Contact [facility] Diagnoses Neck pain Procedures CONSULT TO PHYSICAL THERAPY PHYSICAL THERAPY EVALUATION HIGH COMPLEX 45 MINS Lopez Salmon DO [address] [place] [address] [facility] [place] [id number] Referral ID Status Reason Start Date Expiration Date Visits Requested Visits Authorized [id number] Authorized PCP Requested Referral Auto-Generate d Referral 03/23/2022 03/23/2023 99 99 Specialty Diagnoses / Procedures Referred By Contac t Referred To Contact [facility] Diagnoses Right arm weakness Procedures CONSULT TO AUGER PRESS OPERATOR OCCUPATIONAL THERAPY EVAL HIGH COMPLEX 60 MINS Lopez Salmon DO [address] [place] [address] [facility] [address] [address] Referral ID Status Reason Start Date Expiration Date Visits Requested Visits Authorized [id number] Authorized PCP Requested Referral Auto-Generate d Referral 03/15/2022 03/15/2023 99 99 Specialty Diagnoses / Procedures Referred By Contac t Referred To Contact [facility] Diagnoses Right arm weakness Procedures CONSULT TO PHYSICAL THERAPY PHYSICAL THERAPY EVALUATION HIGH COMPLEX 45 MINS Lopez Salmon DO [address] [place] [address] [facility] [address] [address] Referral ID Status Reason Start Date Expiration Date Visits Requested Visits Authorized [id number] Authorized PCP Requested Referral Auto-Generate d Referral 03/15/2022 03/15/2023 99 99 Chief Complaint and Reason for Visit Chief Complaint R92.8 Chief Complaint R06.00 Chief Complaint R06.00 Dysuria Chief Complaint R30.0 Chief Complaint e04.1 Reason for Visit Multiple thyroid nod ules Chief Complaint yeast infection Chief Complaint Admit Date arm lymph September 29, 2024 8 :00am Z13.820 Z78.0 September 30, 2024 7 :48am Chief Complaint Admit Date Z13.820 Z78.0 September 30, 2024 7 :48am arm lymph October 13, 2024 8:00am Additional Source Comments INFORMATION SOURCE (unrecogn ized section and content) DATE CREATED AUTHOR 10/15/2018 [facility] DATE CREATED AUTHOR AUTHOR'S ORGANIZ ATION 08/03/2021 [facility] DATE CREATED AUTHOR AUTHOR'S ORGANIZ ATION 02/10/2022 [facility] dical Specialist DATE CREATED AUTHOR AUTHOR'S ORGANIZ ATION 07/06/2022 [facility] DATE CREATED AUTHOR AUTHOR'S ORGANIZ ATION 12/13/2022 [facility] DATE CREATED AUTHOR AUTHOR'S ORGANIZ ATION 09/23/2023 [facility] DATE CREATED AUTHOR AUTHOR'S ORGANIZ ATION 06/12/2024 [facility] DATE CREATED AUTHOR AUTHOR'S ORGANIZ ATION 09/07/2024 [facility] DATE CREATED AUTHOR AUTHOR'S ORGANIZ ATION 11/21/2024 [facility] DATE CREATED AUTHOR AUTHOR'S ORGANIZ ATION 03/09/2025 [facility] dical Specialists EPIC DATE CREATED AUTHOR AUTHOR'S ORGANIZ ATION 04/05/2025 [facility] DATE CREATED AUTHOR AUTHOR'S ORGANIZ ATION 04/06/2025 [facility] DATE CREATED AUTHOR AUTHOR'S ORGANIZ ATION 04/18/2025 [facility] Source Comments (unrecognize d section and content) In the event this informatio n is protected by the Federal Confidentiality of Alcohol and Drug Abuse Patient Records regulations: The Federal rules restrict any use of the information to criminally investigate or prosecute any alcohol or drug abuse patient.[facility] the event this information is protected by the Federal Confidentiality of Alcohol and Drug Abuse Patient Records regulations: The Federal rules restrict any use of the information to criminally investigate or prosecute any alcohol or drug abuse patient.[facility] Hospital[facility] the event this information is protected by the Federal Confidentiality of Alcohol and Drug Abuse Patient Records regulations: The Federal rules restrict any use of the information to criminally investigate or prosecute any alcohol or drug abuse patient.[facility] Hospital[facility] the event this information is protected by the Federal Confidentiality of Alcohol and Drug Abuse Patient Records regulations: The Federal rules restrict any use of the information to criminally investigate or prosecute any alcohol or drug abuse patient.[facility] Hospital[facility] the event this information is protected by the Federal Confidentiality of Alcohol and Drug Abuse Patient Records regulations: The Federal rules restrict any use of the information to criminally investigate or prosecute any alcohol or drug abuse patient.[facility] Hospital[facility] the event this information is protected by the Federal Confidentiality of Alcohol and Drug Abuse Patient Records regulations: The Federal rules restrict any use of the information to criminally investigate or prosecute any alcohol or drug abuse patient.[facility] Hospital[facility] the event this information is protected by the Federal Confidentiality of Alcohol and Drug Abuse Patient Records regulations: The Federal rules restrict any use of the information to criminally investigate or prosecute any alcohol or drug abuse patient.[facility] Hospital[facility] the event this information is protected by the Federal Confidentiality of Alcohol and Drug Abuse Patient Records regulations: The Federal rules restrict any use of the information to criminally investigate or prosecute any alcohol or drug abuse patient.[facility] Hospital[facility] the event this information is protected by the Federal Confidentiality of Alcohol and Drug Abuse Patient Records regulations: The Federal rules restrict any use of the information to criminally investigate or prosecute any alcohol or drug abuse patient.[facility] Hospital[facility] the event this information is protected by the Federal Confidentiality of Alcohol and Drug Abuse Patient Records regulations: The Federal rules restrict any use of the information to criminally investigate or prosecute any alcohol or drug abuse patient.[facility] HospitalIn the event this information is protected by the Federal Confidentiality of Alcohol and Drug Abuse Patient Records regulations: The Federal rules restrict any use of the information to criminally investigate or prosecute any alcohol or drug abuse patient.[facility] HospitalIn the event this information is protected by the Federal Confidentiality of Alcohol and Drug Abuse Patient Records regulations: The Federal rules restrict any use of the information to criminally investigate or prosecute any alcohol or drug abuse patient.[facility] HospitalIn the event this information is protected by the Federal Confidentiality of Alcohol and Drug Abuse Patient Records regulations: The Federal rules restrict any use of the information to criminally investigate or prosecute any alcohol or drug abuse patient.[facility] HospitalIn the event this information is protected by the Federal Confidentiality of Alcohol and Drug Abuse Patient Records regulations: The Federal rules restrict any use of the information to criminally investigate or prosecute any alcohol or drug abuse patient.[facility] HospitalIn the event this information is protected by the Federal Confidentiality of Alcohol and Drug Abuse Patient Records regulations: The Federal rules restrict any use of the information to criminally investigate or prosecute any alcohol or drug abuse patient.[facility] HospitalIn the event this information is protected by the Federal Confidentiality of Alcohol and Drug Abuse Patient Records regulations: The Federal rules restrict any use of the information to criminally investigate or prosecute any alcohol or drug abuse patient.[facility] HospitalIn the event this information is protected by the Federal Confidentiality of Alcohol and Drug Abuse Patient Records regulations: The Federal rules restrict any use of the information to criminally investigate or prosecute any alcohol or drug abuse patient.[facility] HospitalIn the event this information is protected by the Federal Confidentiality of Alcohol and Drug Abuse Patient Records regulations: The Federal rules restrict any use of the information to criminally investigate or prosecute any alcohol or drug abuse patient.[facility] HospitalIn the event this information is protected by the Federal Confidentiality of Alcohol and Drug Abuse Patient Records regulations: The Federal rules restrict any use of the information to criminally investigate or prosecute any alcohol or drug abuse patient.[facility] HospitalIn the event this information is protected by the Federal Confidentiality of Alcohol and Drug Abuse Patient Records regulations: The Federal rules restrict any use of the information to criminally investigate or prosecute any alcohol or drug abuse patient.[facility] HospitalIn the event this information is protected by the Federal Confidentiality of Alcohol and Drug Abuse Patient Records regulations: The Federal rules restrict any use of the information to criminally investigate or prosecute any alcohol or drug abuse patient.[facility] HospitalIn the event this information is protected by the Federal Confidentiality of Alcohol and Drug Abuse Patient Records regulations: The Federal rules restrict any use of the information to criminally investigate or prosecute any alcohol or drug abuse patient.[facility] HospitalIn the event this information is protected by the Federal Confidentiality of Alcohol and Drug Abuse Patient Records regulations: The Federal rules restrict any use of the information to criminally investigate or prosecute any alcohol or drug abuse patient.[facility] HospitalIn the event this information is protected by the Federal Confidentiality of Alcohol and Drug Abuse Patient Records regulations: The Federal rules restrict any use of the information to criminally investigate or prosecute any alcohol or drug abuse patient.[facility] HospitalIn the event this information is protected by the Federal Confidentiality of Alcohol and Drug Abuse Patient Records regulations: The Federal rules restrict any use of the information to criminally investigate or prosecute any alcohol or drug abuse patient.[facility] HospitalIn the event this information is protected by the Federal Confidentiality of Alcohol and Drug Abuse Patient Records regulations: The Federal rules restrict any use of the information to criminally investigate or prosecute any alcohol or drug abuse patient.[facility] HospitalIn the event this information is protected by the Federal Confidentiality of Alcohol and Drug Abuse Patient Records regulations: The Federal rules restrict any use of the information to criminally investigate or prosecute any alcohol or drug abuse patient.[facility] HospitalIn the event this information is protected by the Federal Confidentiality of Alcohol and Drug Abuse Patient Records regulations: The Federal rules restrict any use of the information to criminally investigate or prosecute any alcohol or drug abuse patient.[facility] HospitalIn the event this information is protected by the Federal Confidentiality of Alcohol and Drug Abuse Patient Records regulations: The Federal rules restrict any use of the information to criminally investigate or prosecute any alcohol or drug abuse patient.[facility] HospitalIn the event this information is protected by the Federal Confidentiality of Alcohol and Drug Abuse Patient Records regulations: The Federal rules restrict any use of the information to criminally investigate or prosecute any alcohol or drug abuse patient.[facility] HospitalIn the event this information is protected by the Federal Confidentiality of Alcohol and Drug Abuse Patient Records regulations: The Federal rules restrict any use of the information to criminally investigate or prosecute any alcohol or drug abuse patient.[facility] HospitalIn the event this information is protected by the Federal Confidentiality of Alcohol and Drug Abuse Patient Records regulations: The Federal rules restrict any use of the information to criminally investigate or prosecute any alcohol or drug abuse patient.[facility] HospitalIn the event this information is protected by the Federal Confidentiality of Alcohol and Drug Abuse Patient Records regulations: The Federal rules restrict any use of the information to criminally investigate or prosecute any alcohol or drug abuse patient.[facility] HospitalIn the event this information is protected by the Federal Confidentiality of Alcohol and Drug Abuse Patient Records regulations: The Federal rules restrict any use of the information to criminally investigate or prosecute any alcohol or drug abuse patient.[facility] HospitalIn the event this information is protected by the Federal Confidentiality of Alcohol and Drug Abuse Patient Records regulations: The Federal rules restrict any use of the information to criminally investigate or prosecute any alcohol or drug abuse patient.[facility] HospitalIn the event this information is protected by the Federal Confidentiality of Alcohol and Drug Abuse Patient Records regulations: The Federal rules restrict any use of the information to criminally investigate or prosecute any alcohol or drug abuse patient.[facility] HospitalIn the event this information is protected by the Federal Confidentiality of Alcohol and Drug Abuse Patient Records regulations: The Federal rules restrict any use of the information to criminally investigate or prosecute any alcohol or drug abuse patient.[facility] HospitalIn the event this information is protected by the Federal Confidentiality of Alcohol and Drug Abuse Patient Records regulations: The Federal rules restrict any use of the information to criminally investigate or prosecute any alcohol or drug abuse patient.[facility] HospitalIn the event this information is protected by the Federal Confidentiality of Alcohol and Drug Abuse Patient Records regulations: The Federal rules restrict any use of the information to criminally investigate or prosecute any alcohol or drug abuse patient.[facility] HospitalIn the event this information is protected by the Federal Confidentiality of Alcohol and Drug Abuse Patient Records regulations: The Federal rules restrict any use of the information to criminally investigate or prosecute any alcohol or drug abuse patient.[facility] HospitalIn the event this information is protected by the Federal Confidentiality of Alcohol and Drug Abuse Patient Records regulations: The Federal rules restrict any use of the information to criminally investigate or prosecute any alcohol or drug abuse patient.[facility] HospitalIn the event this information is protected by the Federal Confidentiality of Alcohol and Drug Abuse Patient Records regulations: The Federal rules restrict any use of the information to criminally investigate or prosecute any alcohol or drug abuse patient.[facility] HospitalIn the event this information is protected by the Federal Confidentiality of Alcohol and Drug Abuse Patient Records regulations: The Federal rules restrict any use of the information to criminally investigate or prosecute any alcohol or drug abuse patient.[facility] HospitalIn the event this information is protected by the Federal Confidentiality of Alcohol and Drug Abuse Patient Records regulations: The Federal rules restrict any use of the information to criminally investigate or prosecute any alcohol or drug abuse patient.[facility] HospitalIn the event this information is protected by the Federal Confidentiality of Alcohol and Drug Abuse Patient Records regulations: The Federal rules restrict any use of the information to criminally investigate or prosecute any alcohol or drug abuse patient.[facility] HospitalIn the event this information is protected by the Federal Confidentiality of Alcohol and Drug Abuse Patient Records regulations: The Federal rules restrict any use of the information to criminally investigate or prosecute any alcohol or drug abuse patient.[facility] HospitalIn the event this information is protected by the Federal Confidentiality of Alcohol and Drug Abuse Patient Records regulations: The Federal rules restrict any use of the information to criminally investigate or prosecute any alcohol or drug abuse patient.[facility] HospitalIn the event this information is protected by the Federal Confidentiality of Alcohol and Drug Abuse Patient Records regulations: The Federal rules restrict any use of the information to criminally investigate or prosecute any alcohol or drug abuse patient.[facility] HospitalIn the event this information is protected by the Federal Confidentiality of Alcohol and Drug Abuse Patient Records regulations: The Federal rules restrict any use of the information to criminally investigate or prosecute any alcohol or drug abuse patient.[facility] HospitalIn the event this information is protected by the Federal Confidentiality of Alcohol and Drug Abuse Patient Records regulations: The Federal rules restrict any use of the information to criminally investigate or prosecute any alcohol or drug abuse patient.[facility] HospitalIn the event this information is protected by the Federal Confidentiality of Alcohol and Drug Abuse Patient Records regulations: The Federal rules restrict any use of the information to criminally investigate or prosecute any alcohol or drug abuse patient.[facility] HospitalIn the event this information is protected by the Federal Confidentiality of Alcohol and Drug Abuse Patient Records regulations: The Federal rules restrict any use of the information to criminally investigate or prosecute any alcohol or drug abuse patient.[facility] HospitalIn the event this information is protected by the Federal Confidentiality of Alcohol and Drug Abuse Patient Records regulations: The Federal rules restrict any use of the information to criminally investigate or prosecute any alcohol or drug abuse patient.[facility] HospitalIn the event this information is protected by the Federal Confidentiality of Alcohol and Drug Abuse Patient Records regulations: The Federal rules restrict any use of the information to criminally investigate or prosecute any alcohol or drug abuse patient.[facility] HospitalIn the event this information is protected by the Federal Confidentiality of Alcohol and Drug Abuse Patient Records regulations: The Federal rules restrict any use of the information to criminally investigate or prosecute any alcohol or drug abuse patient.[facility] HospitalIn the event this information is protected by the Federal Confidentiality of Alcohol and Drug Abuse Patient Records regulations: The Federal rules restrict any use of the information to criminally investigate or prosecute any alcohol or drug abuse patient.[facility] HospitalIn the event this information is protected by the Federal Confidentiality of Alcohol and Drug Abuse Patient Records regulations: The Federal rules restrict any use of the information to criminally investigate or prosecute any alcohol or drug abuse patient.[facility] HospitalIn the event this information is protected by the Federal Confidentiality of Alcohol and Drug Abuse Patient Records regulations: The Federal rules restrict any use of the information to criminally investigate or prosecute any alcohol or drug abuse patient.[facility] HospitalIn the event this information is protected by the Federal Confidentiality of Alcohol and Drug Abuse Patient Records regulations: The Federal rules restrict any use of the information to criminally investigate or prosecute any alcohol or drug abuse patient.[facility] HospitalIn the event this information is protected by the Federal Confidentiality of Alcohol and Drug Abuse Patient Records regulations: The Federal rules restrict any use of the information to criminally investigate or prosecute any alcohol or drug abuse patient.[facility] HospitalIn the event this information is protected by the Federal Confidentiality of Alcohol and Drug Abuse Patient Records regulations: The Federal rules restrict any use of the information to criminally investigate or prosecute any alcohol or drug abuse patient.[facility] HospitalIn the event this information is protected by the Federal Confidentiality of Alcohol and Drug Abuse Patient Records regulations: The Federal rules restrict any use of the information to criminally investigate or prosecute any alcohol or drug abuse patient.[facility] HospitalIn the event this information is protected by the Federal Confidentiality of Alcohol and Drug Abuse Patient Records regulations: The Federal rules restrict any use of the information to criminally investigate or prosecute any alcohol or drug abuse patient.[facility] HospitalIn the event this information is protected by the Federal Confidentiality of Alcohol and Drug Abuse Patient Records regulations: The Federal rules restrict any use of the information to criminally investigate or prosecute any alcohol or drug abuse patient.[facility] HospitalIn the event this information is protected by the Federal Confidentiality of Alcohol and Drug Abuse Patient Records regulations: The Federal rules restrict any use of the information to criminally investigate or prosecute any alcohol or drug abuse patient.[facility] HospitalIn the event this information is protected by the Federal Confidentiality of Alcohol and Drug Abuse Patient Records regulations: The Federal rules restrict any use of the information to criminally investigate or prosecute any alcohol or drug abuse patient.[facility] HospitalIn the event this information is protected by the Federal Confidentiality of Alcohol and Drug Abuse Patient Records regulations: The Federal rules restrict any use of the information to criminally investigate or prosecute any alcohol or drug abuse patient.[facility] HospitalIn the event this information is protected by the Federal Confidentiality of Alcohol and Drug Abuse Patient Records regulations: The Federal rules restrict any use of the information to criminally investigate or prosecute any alcohol or drug abuse patient.[facility] HospitalIn the event this information is protected by the Federal Confidentiality of Alcohol and Drug Abuse Patient Records regulations: The Federal rules restrict any use of the information to criminally investigate or prosecute any alcohol or drug abuse patient.[facility] HospitalIn the event this information is protected by the Federal Confidentiality of Alcohol and Drug Abuse Patient Records regulations: The Federal rules restrict any use of the information to criminally investigate or prosecute any alcohol or drug abuse patient.[facility] HospitalIn the event this information is protected by the Federal Confidentiality of Alcohol and Drug Abuse Patient Records regulations: The Federal rules restrict any use of the information to criminally investigate or prosecute any alcohol or drug abuse patient.[facility] HospitalIn the event this information is protected by the Federal Confidentiality of Alcohol and Drug Abuse Patient Records regulations: The Federal rules restrict any use of the information to criminally investigate or prosecute any alcohol or drug abuse patient.[facility] HospitalIn the event this information is protected by the Federal Confidentiality of Alcohol and Drug Abuse Patient Records regulations: The Federal rules restrict any use of the information to criminally investigate or prosecute any alcohol or drug abuse patient.[facility] HospitalIn the event this information is protected by the Federal Confidentiality of Alcohol and Drug Abuse Patient Records regulations: The Federal rules restrict any use of the information to criminally investigate or prosecute any alcohol or drug abuse patient.[facility] HospitalIn the event this information is protected by the Federal Confidentiality of Alcohol and Drug Abuse Patient Records regulations: The Federal rules restrict any use of the information to criminally investigate or prosecute any alcohol or drug abuse patient.[facility] HospitalIn the event this information is protected by the Federal Confidentiality of Alcohol and Drug Abuse Patient Records regulations: The Federal rules restrict any use of the information to criminally investigate or prosecute any alcohol or drug abuse patient.[facility] HospitalIn the event this information is protected by the Federal Confidentiality of Alcohol and Drug Abuse Patient Records regulations: The Federal rules restrict any use of the information to criminally investigate or prosecute any alcohol or drug abuse patient.[facility] HospitalIn the event this information is protected by the Federal Confidentiality of Alcohol and Drug Abuse Patient Records regulations: The Federal rules restrict any use of the information to criminally investigate or prosecute any alcohol or drug abuse patient.[facility] HospitalIn the event this information is protected by the Federal Confidentiality of Alcohol and Drug Abuse Patient Records regulations: The Federal rules restrict any use of the information to criminally investigate or prosecute any alcohol or drug abuse patient.[facility] HospitalIn the event this information is protected by the Federal Confidentiality of Alcohol and Drug Abuse Patient Records regulations: The Federal rules restrict any use of the information to criminally investigate or prosecute any alcohol or drug abuse patient.[facility] HospitalIn the event this information is protected by the Federal Confidentiality of Alcohol and Drug Abuse Patient Records regulations: The Federal rules restrict any use of the information to criminally investigate or prosecute any alcohol or drug abuse patient.[facility] HospitalIn the event this information is protected by the Federal Confidentiality of Alcohol and Drug Abuse Patient Records regulations: The Federal rules restrict any use of the information to criminally investigate or prosecute any alcohol or drug abuse patient.[facility] HospitalIn the event this information is protected by the Federal Confidentiality of Alcohol and Drug Abuse Patient Records regulations: The Federal rules restrict any use of the information to criminally investigate or prosecute any alcohol or drug abuse patient.[facility] HospitalIn the event this information is protected by the Federal Confidentiality of Alcohol and Drug Abuse Patient Records regulations: The Federal rules restrict any use of the information to criminally investigate or prosecute any alcohol or drug abuse patient.[facility] HospitalIn the event this information is protected by the Federal Confidentiality of Alcohol and Drug Abuse Patient Records regulations: The Federal rules restrict any use of the information to criminally investigate or prosecute any alcohol or drug abuse patient.[facility] HospitalIn the event this information is protected by the Federal Confidentiality of Alcohol and Drug Abuse Patient Records regulations: The Federal rules restrict any use of the information to criminally investigate or prosecute any alcohol or drug abuse patient.[facility] HospitalIn the event this information is protected by the Federal Confidentiality of Alcohol and Drug Abuse Patient Records regulations: The Federal rules restrict any use of the information to criminally investigate or prosecute any alcohol or drug abuse patient.[facility] HospitalIn the event this information is protected by the Federal Confidentiality of Alcohol and Drug Abuse Patient Records regulations: The Federal rules restrict any use of the information to criminally investigate or prosecute any alcohol or drug abuse patient.[facility] HospitalIn the event this information is protected by the Federal Confidentiality of Alcohol and Drug Abuse Patient Records regulations: The Federal rules restrict any use of the information to criminally investigate or prosecute any alcohol or drug abuse patient.[facility] HospitalIn the event this information is protected by the Federal Confidentiality of Alcohol and Drug Abuse Patient Records regulations: The Federal rules restrict any use of the information to criminally investigate or prosecute any alcohol or drug abuse patient.[facility] HospitalIn the event this information is protected by the Federal Confidentiality of Alcohol and Drug Abuse Patient Records regulations: The Federal rules restrict any use of the information to criminally investigate or prosecute any alcohol or drug abuse patient.[facility] HospitalIn the event this information is protected by the Federal Confidentiality of Alcohol and Drug Abuse Patient Records regulations: The Federal rules restrict any use of the information to criminally investigate or prosecute any alcohol or drug abuse patient.[facility] HospitalIn the event this information is protected by the Federal Confidentiality of Alcohol and Drug Abuse Patient Records regulations: The Federal rules restrict any use of the information to criminally investigate or prosecute any alcohol or drug abuse patient.[facility] HospitalIn the event this information is protected by the Federal Confidentiality of Alcohol and Drug Abuse Patient Records regulations: The Federal rules restrict any use of the information to criminally investigate or prosecute any alcohol or drug abuse patient.[facility] HospitalIn the event this information is protected by the Federal Confidentiality of Alcohol and Drug Abuse Patient Records regulations: The Federal rules restrict any use of the information to criminally investigate or prosecute any alcohol or drug abuse patient.[facility] HospitalIn the event this information is protected by the Federal Confidentiality of Alcohol and Drug Abuse Patient Records regulations: The Federal rules restrict any use of the information to criminally investigate or prosecute any alcohol or drug abuse patient.[facility] HospitalIn the event this information is protected by the Federal Confidentiality of Alcohol and Drug Abuse Patient Records regulations: The Federal rules restrict any use of the information to criminally investigate or prosecute any alcohol or drug abuse patient.[facility] HospitalIn the event this information is protected by the Federal Confidentiality of Alcohol and Drug Abuse Patient Records regulations: The Federal rules restrict any use of the information to criminally investigate or prosecute any alcohol or drug abuse patient.[facility] HospitalIn the event this information is protected by the Federal Confidentiality of Alcohol and Drug Abuse Patient Records regulations: The Federal rules restrict any use of the information to criminally investigate or prosecute any alcohol or drug abuse patient.[facility] HospitalIn the event this information is protected by the Federal Confidentiality of Alcohol and Drug Abuse Patient Records regulations: The Federal rules restrict any use of the information to criminally investigate or prosecute any alcohol or drug abuse patient.[facility] HospitalIn the event this information is protected by the Federal Confidentiality of Alcohol and Drug Abuse Patient Records regulations: The Federal rules restrict any use of the information to criminally investigate or prosecute any alcohol or drug abuse patient.[facility] HospitalIn the event this information is protected by the Federal Confidentiality of Alcohol and Drug Abuse Patient Records regulations: The Federal rules restrict any use of the information to criminally investigate or prosecute any alcohol or drug abuse patient.[facility] HospitalIn the event this information is protected by the Federal Confidentiality of Alcohol and Drug Abuse Patient Records regulations: The Federal rules restrict any use of the information to criminally investigate or prosecute any alcohol or drug abuse patient.[facility] HospitalIn the event this information is protected by the Federal Confidentiality of Alcohol and Drug Abuse Patient Records regulations: The Federal rules restrict any use of the information to criminally investigate or prosecute any alcohol or drug abuse patient.[facility] HospitalIn the event this information is protected by the Federal Confidentiality of Alcohol and Drug Abuse Patient Records regulations: The Federal rules restrict any use of the information to criminally investigate or prosecute any alcohol or drug abuse patient.[facility] HospitalIn the event this information is protected by the Federal Confidentiality of Alcohol and Drug Abuse Patient Records regulations: The Federal rules restrict any use of the information to criminally investigate or prosecute any alcohol or drug abuse patient.[facility] HospitalIn the event this information is protected by the Federal Confidentiality of Alcohol and Drug Abuse Patient Records regulations: The Federal rules restrict any use of the information to criminally investigate or prosecute any alcohol or drug abuse patient.[facility] HospitalIn the event this information is protected by the Federal Confidentiality of Alcohol and Drug Abuse Patient Records regulations: The Federal rules restrict any use of the information to criminally investigate or prosecute any alcohol or drug abuse patient.[facility] HospitalIn the event this information is protected by the Federal Confidentiality of Alcohol and Drug Abuse Patient Records regulations: The Federal rules restrict any use of the information to criminally investigate or prosecute any alcohol or drug abuse patient.[facility] HospitalIn the event this information is protected by the Federal Confidentiality of Alcohol and Drug Abuse Patient Records regulations: The Federal rules restrict any use of the information to criminally investigate or prosecute any alcohol or drug abuse patient.[facility] HospitalIn the event this information is protected by the Federal Confidentiality of Alcohol and Drug Abuse Patient Records regulations: The Federal rules restrict any use of the information to criminally investigate or prosecute any alcohol or drug abuse patient.[facility] HospitalIn the event this information is protected by the Federal Confidentiality of Alcohol and Drug Abuse Patient Records regulations: The Federal rules restrict any use of the information to criminally investigate or prosecute any alcohol or drug abuse patient.[facility] HospitalIn the event this information is protected by the Federal Confidentiality of Alcohol and Drug Abuse Patient Records regulations: The Federal rules restrict any use of the information to criminally investigate or prosecute any alcohol or drug abuse patient.[facility] HospitalIn the event this information is protected by the Federal Confidentiality of Alcohol and Drug Abuse Patient Records regulations: The Federal rules restrict any use of the information to criminally investigate or prosecute any alcohol or drug abuse patient.[facility] HospitalIn the event this information is protected by the Federal Confidentiality of Alcohol and Drug Abuse Patient Records regulations: The Federal rules restrict any use of the information to criminally investigate or prosecute any alcohol or drug abuse patient.[facility] HospitalIn the event this information is protected by the Federal Confidentiality of Alcohol and Drug Abuse Patient Records regulations: The Federal rules restrict any use of the information to criminally investigate or prosecute any alcohol or drug abuse patient.[facility] HospitalIn the event this information is protected by the Federal Confidentiality of Alcohol and Drug Abuse Patient Records regulations: The Federal rules restrict any use of the information to criminally investigate or prosecute any alcohol or drug abuse patient.[facility] HospitalIn the event this information is protected by the Federal Confidentiality of Alcohol and Drug Abuse Patient Records regulations: The Federal rules restrict any use of the information to criminally investigate or prosecute any alcohol or drug abuse patient.[facility] HospitalIn the event this information is protected by the Federal Confidentiality of Alcohol and Drug Abuse Patient Records regulations: The Federal rules restrict any use of the information to criminally investigate or prosecute any alcohol or drug abuse patient.[facility] HospitalIn the event this information is protected by the Federal Confidentiality of Alcohol and Drug Abuse Patient Records regulations: The Federal rules restrict any use of the information to criminally investigate or prosecute any alcohol or drug abuse patient.[facility] HospitalIn the event this information is protected by the Federal Confidentiality of Alcohol and Drug Abuse Patient Records regulations: The Federal rules restrict any use of the information to criminally investigate or prosecute any alcohol or drug abuse patient.[facility] HospitalIn the event this information is protected by the Federal Confidentiality of Alcohol and Drug Abuse Patient Records regulations: The Federal rules restrict any use of the information to criminally investigate or prosecute any alcohol or drug abuse patient.[facility] HospitalIn the event this information is protected by the Federal Confidentiality of Alcohol and Drug Abuse Patient Records regulations: The Federal rules restrict any use of the information to criminally investigate or prosecute any alcohol or drug abuse patient.[facility] HospitalIn the event this information is protected by the Federal Confidentiality of Alcohol and Drug Abuse Patient Records regulations: The Federal rules restrict any use of the information to criminally investigate or prosecute any alcohol or drug abuse patient.[facility] HospitalIn the event this information is protected by the Federal Confidentiality of Alcohol and Drug Abuse Patient Records regulations: The Federal rules restrict any use of the information to criminally investigate or prosecute any alcohol or drug abuse patient.[facility] HospitalIn the event this information is protected by the Federal Confidentiality of Alcohol and Drug Abuse Patient Records regulations: The Federal rules restrict any use of the information to criminally investigate or prosecute any alcohol or drug abuse patient.[facility] HospitalIn the event this information is protected by the Federal Confidentiality of Alcohol and Drug Abuse Patient Records regulations: The Federal rules restrict any use of the information to criminally investigate or prosecute any alcohol or drug abuse patient.[facility] HospitalIn the event this information is protected by the Federal Confidentiality of Alcohol and Drug Abuse Patient Records regulations: The Federal rules restrict any use of the information to criminally investigate or prosecute any alcohol or drug abuse patient.[facility] HospitalIn the event this information is protected by the Federal Confidentiality of Alcohol and Drug Abuse Patient Records regulations: The Federal rules restrict any use of the information to criminally investigate or prosecute any alcohol or drug abuse patient.[facility] HospitalIn the event this information is protected by the Federal Confidentiality of Alcohol and Drug Abuse Patient Records regulations: The Federal rules restrict any use of the information to criminally investigate or prosecute any alcohol or drug abuse patient.[facility] HospitalIn the event this information is protected by the Federal Confidentiality of Alcohol and Drug Abuse Patient Records regulations: The Federal rules restrict any use of the information to criminally investigate or prosecute any alcohol or drug abuse patient.[facility] HospitalIn the event this information is protected by the Federal Confidentiality of Alcohol and Drug Abuse Patient Records regulations: The Federal rules restrict any use of the information to criminally investigate or prosecute any alcohol or drug abuse patient.[facility] HospitalIn the event this information is protected by the Federal Confidentiality of Alcohol and Drug Abuse Patient Records regulations: The Federal rules restrict any use of the information to criminally investigate or prosecute any alcohol or drug abuse patient.[facility] HospitalIn the event this information is protected by the Federal Confidentiality of Alcohol and Drug Abuse Patient Records regulations: The Federal rules restrict any use of the information to criminally investigate or prosecute any alcohol or drug abuse patient.[facility] HospitalIn the event this information is protected by the Federal Confidentiality of Alcohol and Drug Abuse Patient Records regulations: The Federal rules restrict any use of the information to criminally investigate or prosecute any alcohol or drug abuse patient.[facility] HospitalIn the event this information is protected by the Federal Confidentiality of Alcohol and Drug Abuse Patient Records regulations: The Federal rules restrict any use of the information to criminally investigate or prosecute any alcohol or drug abuse patient.[facility] HospitalIn the event this information is protected by the Federal Confidentiality of Alcohol and Drug Abuse Patient Records regulations: The Federal rules restrict any use of the information to criminally investigate or prosecute any alcohol or drug abuse patient.[facility] HospitalIn the event this information is protected by the Federal Confidentiality of Alcohol and Drug Abuse Patient Records regulations: The Federal rules restrict any use of the information to criminally investigate or prosecute any alcohol or drug abuse patient.[facility] HospitalIn the event this information is protected by the Federal Confidentiality of Alcohol and Drug Abuse Patient Records regulations: The Federal rules restrict any use of the information to criminally investigate or prosecute any alcohol or drug abuse patient.[facility] HospitalIn the event this information is protected by the Federal Confidentiality of Alcohol and Drug Abuse Patient Records regulations: The Federal rules restrict any use of the information to criminally investigate or prosecute any alcohol or drug abuse patient.[facility] HospitalIn the event this information is protected by the Federal Confidentiality of Alcohol and Drug Abuse Patient Records regulations: The Federal rules restrict any use of the information to criminally investigate or prosecute any alcohol or drug abuse patient.[facility] HospitalIn the event this information is protected by the Federal Confidentiality of Alcohol and Drug Abuse Patient Records regulations: The Federal rules restrict any use of the information to criminally investigate or prosecute any alcohol or drug abuse patient.[facility] HospitalIn the event this information is protected by the Federal Confidentiality of Alcohol and Drug Abuse Patient Records regulations: The Federal rules restrict any use of the information to criminally investigate or prosecute any alcohol or drug abuse patient.[facility] HospitalIn the event this information is protected by the Federal Confidentiality of Alcohol and Drug Abuse Patient Records regulations: The Federal rules restrict any use of the information to criminally investigate or prosecute any alcohol or drug abuse patient.[facility] HospitalIn the event this information is protected by the Federal Confidentiality of Alcohol and Drug Abuse Patient Records regulations: The Federal rules restrict any use of the information to criminally investigate or prosecute any alcohol or drug abuse patient.[facility] HospitalIn the event this information is protected by the Federal Confidentiality of Alcohol and Drug Abuse Patient Records regulations: The Federal rules restrict any use of the information to criminally investigate or prosecute any alcohol or drug abuse patient.[facility] HospitalIn the event this information is protected by the Federal Confidentiality of Alcohol and Drug Abuse Patient Records regulations: The Federal rules restrict any use of the information to criminally investigate or prosecute any alcohol or drug abuse patient.[facility] HospitalIn the event this information is protected by the Federal Confidentiality of Alcohol and Drug Abuse Patient Records regulations: The Federal rules restrict any use of the information to criminally investigate or prosecute any alcohol or drug abuse patient.[facility] HospitalIn the event this information is protected by the Federal Confidentiality of Alcohol and Drug Abuse Patient Records regulations: The Federal rules restrict any use of the information to criminally investigate or prosecute any alcohol or drug abuse patient.[facility] HospitalIn the event this information is protected by the Federal Confidentiality of Alcohol and Drug Abuse Patient Records regulations: The Federal rules restrict any use of the information to criminally investigate or prosecute any alcohol or drug abuse patient.[facility] HospitalIn the event this information is protected by the Federal Confidentiality of Alcohol and Drug Abuse Patient Records regulations: The Federal rules restrict any use of the information to criminally investigate or prosecute any alcohol or drug abuse patient.[facility] HospitalIn the event this information is protected by the Federal Confidentiality of Alcohol and Drug Abuse Patient Records regulations: The Federal rules restrict any use of the information to criminally investigate or prosecute any alcohol or drug abuse patient.[facility] HospitalIn the event this information is protected by the Federal Confidentiality of Alcohol and Drug Abuse Patient Records regulations: The Federal rules restrict any use of the information to criminally investigate or prosecute any alcohol or drug abuse patient.[facility] HospitalIn the event this information is protected by the Federal Confidentiality of Alcohol and Drug Abuse Patient Records regulations: The Federal rules restrict any use of the information to criminally investigate or prosecute any alcohol or drug abuse patient.[facility] HospitalIn the event this information is protected by the Federal Confidentiality of Alcohol and Drug Abuse Patient Records regulations: The Federal rules restrict any use of the information to criminally investigate or prosecute any alcohol or drug abuse patient.[facility] HospitalIn the event this information is protected by the Federal Confidentiality of Alcohol and Drug Abuse Patient Records regulations: The Federal rules restrict any use of the information to criminally investigate or prosecute any alcohol or drug abuse patient.[facility] HospitalIn the event this information is protected by the Federal Confidentiality of Alcohol and Drug Abuse Patient Records regulations: The Federal rules restrict any use of the information to criminally investigate or prosecute any alcohol or drug abuse patient.[facility] HospitalIn the event this information is protected by the Federal Confidentiality of Alcohol and Drug Abuse Patient Records regulations: The Federal rules restrict any use of the information to criminally investigate or prosecute any alcohol or drug abuse patient.[facility] HospitalIn the event this information is protected by the Federal Confidentiality of Alcohol and Drug Abuse Patient Records regulations: The Federal rules restrict any use of the information to criminally investigate or prosecute any alcohol or drug abuse patient.[facility] HospitalIn the event this information is protected by the Federal Confidentiality of Alcohol and Drug Abuse Patient Records regulations: The Federal rules restrict any use of the information to criminally investigate or prosecute any alcohol or drug abuse patient.[facility] HospitalIn the event this information is protected by the Federal Confidentiality of Alcohol and Drug Abuse Patient Records regulations: The Federal rules restrict any use of the information to criminally investigate or prosecute any alcohol or drug abuse patient.[facility] HospitalIn the event this information is protected by the Federal Confidentiality of Alcohol and Drug Abuse Patient Records regulations: The Federal rules restrict any use of the information to criminally investigate or prosecute any alcohol or drug abuse patient.[facility] HospitalIn the event this information is protected by the Federal Confidentiality of Alcohol and Drug Abuse Patient Records regulations: The Federal rules restrict any use of the information to criminally investigate or prosecute any alcohol or drug abuse patient.[facility] HospitalIn the event this information is protected by the Federal Confidentiality of Alcohol and Drug Abuse Patient Records regulations: The Federal rules restrict any use of the information to criminally investigate or prosecute any alcohol or drug abuse patient.[facility] HospitalIn the event this information is protected by the Federal Confidentiality of Alcohol and Drug Abuse Patient Records regulations: The Federal rules restrict any use of the information to criminally investigate or prosecute any alcohol or drug abuse patient.[facility] HospitalIn the event this information is protected by the Federal Confidentiality of Alcohol and Drug Abuse Patient Records regulations: The Federal rules restrict any use of the information to criminally investigate or prosecute any alcohol or drug abuse patient.[facility] HospitalIn the event this information is protected by the Federal Confidentiality of Alcohol and Drug Abuse Patient Records regulations: The Federal rules restrict any use of the information to criminally investigate or prosecute any alcohol or drug abuse patient.[facility] HospitalIn the event this information is protected by the Federal Confidentiality of Alcohol and Drug Abuse Patient Records regulations: The Federal rules restrict any use of the information to criminally investigate or prosecute any alcohol or drug abuse patient.[facility] HospitalIn the event this information is protected by the Federal Confidentiality of Alcohol and Drug Abuse Patient Records regulations: The Federal rules restrict any use of the information to criminally investigate or prosecute any alcohol or drug abuse patient.[facility] Care Teams (unrecognized sec tion and content) Team Status: Active Member Role Status Dates Sunny Jenkins MD Primary Care Provider Active Team Status: Inactive Member Role Status Dates Sunny Jenkins MD Primary Care Provider Active S tart: September 30, 2024 End: September 30, 2024 Mitch Neri MD Attending Provider Active St art: September 30, 2024 End: September 30, 2024 Team Status: Inactive Member Role Status Dates Sunny Jenkisn MD Primary Care Provide r, Attending Provider Active Start: October 13, 2024 End: October 13, 2024 Team Status: Active Member Role Status Dates Sunny Jenkins MD Primary Care Provider Active S tart: October 19, 2024 Nikko Corona , Attending Provider Active Sta rt: October 19, 2024 Team Status: Active Member Role Status Dates Janet Dillard , Primary Care Provider Active Team Status: Inactive Member Role Status Dates Janet Dillard , DO Primary Care Provider Active Nikko Astorga , DO Attending Provider Active Team Status: Inactive Member Role Status Dates DEEPA Ann Attending Provider Active Team Status: Inactive Member Role Status Dates Janet Dillard , DO Primary Care Provider Active Kaylene Lilly , DO Attending Provider Active Advertising Solicitor Relationship Specialty Start Date End Date Rita Amanda PCP - General 01/28/07 Janet Dillard, DO [address] [place] [facility] [place] [address] Referring Family Practice 07/14/21 Advertising Solicitor Relationship Specialty Start Date End Date Rita Amanda PCP - General 01/28/07 Janet Dillard, DO [address] [place] [facility] [place] [address] Referring Family Practice 07/14/21 Advertising Solicitor Relationship Specialty Start Date End Date Rita Amanda PCP - General 01/28/07 Janet Dillard, DO [address] [place] [facility] [place] [address] Referring Family Practice 07/14/21 Advertising Solicitor Relationship Specialty Start Date End Date Rita Amanda PCP - General 01/28/07 Janet Dillard, DO [address] [place] [address] Referring Family Practice 07/14/21 Advertising Solicitor Relationship Specialty Start Date End Date Rita Amanda PCP - General 01/28/07 Janet Dillard, DO [address] [place] [address] Referring Family Practice 07/14/21 Advertising Solicitor Relationship Specialty Start Date End Date Rita Amanda PCP - General 01/28/07 Janet Dillard, DO [address] [place] [address] Referring Family Practice 07/14/21 Advertising Solicitor Relationship Specialty Start Date End Date Rita Amanda PCP - General 01/28/07 Janet Dillard, DO [address] [place] [address] Referring Family Practice 07/14/21 Advertising Solicitor Relationship Specialty Start Date End Date Rita Amanda PCP - General 01/28/07 Janet Dillard, DO [address] [place] [address] Referring Family Practice 07/14/21 Advertising Solicitor Relationship Specialty Start Date End Date Rita Amanda PCP - General 01/28/07 Janet Dillard, DO [address] [place] [address] Referring Family Practice 07/14/21 Advertising Solicitor Relationship Specialty Start Date End Date Rita Amanda PCP - General 01/28/07 Janet Dillard, DO [address] [place] [facility] [place] [address] Referring Family Practice 07/14/21 Team Status: Inactive Member Role Status Dates JUTSINA HaasC Attending Provider Active Emliy Benson APRN Referring Provider Active Janet Dillard DO Primary Care Provider Active Advertising Solicitor Relationship Specialty Start Date End Date Rita Amanda PCP - General 01/28/07 Janet Dillard, DO [address] [place] [facility] [place] [address] Referring Family Medicine 07/14/21 Advertising Solicitor Relationship Specialty Start Date End Date Rita Amanda PCP - General 01/28/07 Janet Dillard, DO [address] [place] [facility] [place] [address] Referring Family Medicine 07/14/21 Team Status: Inactive Member Role Status Dates DEEPA Ann Attending Provider Active PHYSICIAN NO FAMILY Primary Care Provider Active Advertising Solicitor Relationship Specialty Start Date End Date Rita Amanda PCP - General 01/28/07 Janet Dillard, DO [address] [place] [facility] [place] [address] Referring Family Medicine 07/14/21 Advertising Solicitor Relationship Specialty Start Date End Date Rita Amanda PCP - General 01/28/07 Janet Dillard, DO [address] [place] [address] Referring Family Medicine 07/14/21 Advertising Solicitor Relationship Specialty Start Date End Date Rita Amanda PCP - General 01/28/07 Janet Dillard, DO [address] [place] [address] Referring Family Medicine 07/14/21 Advertising Solicitor Relationship Specialty Start Date End Date Rita Amanda PCP - General 01/28/07 Janet Dillard, DO [address] [place] [address] Referring Family Medicine 07/14/21 Advertising Solicitor Relationship Specialty Start Date End Date Rita Amanda PCP - General 01/28/07 Janet Dillard, DO [address] [place] [address] Referring Family Medicine 07/14/21 Advertising Solicitor Relationship Specialty Start Date End Date Rita Amanda PCP - General 01/28/07 Janet Dillard DO [address] [place] [address] Referring Family Medicine 07/14/21 Advertising Solicitor Relationship Specialty Start Date End Date Rita Amanda PCP - General 01/28/07 Puneet Dillardee Flaquita, DO [address] [place] [address] Referring Family Medicine 07/14/21 Advertising Solicitor Relationship Specialty Start Date End Date TreasureRita swann PCP - General 01/28/07 Janet Dillardce, DO [address] [place] [facility] [place] [address] Referring Family Medicine 07/14/21 Advertising Solicitor Relationship Specialty Start Date End Date Rita Amanda PCP - General 01/28/07 Janet Dillard, DO [address] [facility] [place] [address] Referring Family Medicine 07/14/21 Advertising Solicitor Relationship Specialty Start Date End Date Rita Amanda PCP - General 01/28/07 Janet Dillard, DO [address] [place] [address] Referring Family Medicine 07/14/21 Advertising Solicitor Relationship Specialty Start Date End Date Rita Amanda PCP - General 01/28/07 Janet Dillard, DO [address] [place] [address] Referring Family Medicine 07/14/21 Advertising Solicitor Relationship Specialty Start Date End Date Sunny Jenkins MD [address] [place] [address] PCP - General Internal Medicine 08/22/23 Janet Dillard DO [address] [facility] [place] [address] Referring Family Medicine 07/14/21 Yvonne Baumann, RN [address] [facility] [place] [address] Specialty Aerial Crop Duster Hematology/Oncology 09/23/23 Mitch Neri MD [address] [facility] [place] [address] Physician Hematology/Oncology 09/23/23 Cathy [place], PALeonelC [address] [facility] [place] [address] Physician Feather Boner Hematology/Oncology 09/23/23 Deepika Garcia LSW Machine Bookkeeper 09/24/23 Advertising Solicitor Relationship Specialty Start Date End Date Sunny Jenkins MD [address] [place] [address] PCP - General Internal Medicine 08/22/23 Janet Dillard DO [address] [facility] [place] [address] Referring Family Medicine 07/14/21 Yvonne Baumann, RN [address] [facility] [place] [address] Specialty Aerial Crop Duster Hematology/Oncology 09/23/23 Mitch Neri MD [address] [facility] [place] [address] Physician Hematology/Oncology 09/23/23 Cathy Templeton PA-C [address] [place] [address] [place] [address] Physician Feather Boner Hematology/Oncology 09/23/23 Deepika Garcia, CONVENTION SERVICES DIRECTOR Machine Bookkeeper 09/24/23 Advertising Solicitor Relationship Specialty Start Date End Date Sunny Jenkins MD [address] [place] [address] PCP - General Internal Medicine 08/22/23 Janet Dillard DO [address] [place] [address] Referring Family Medicine 07/14/21 Yvonne Baumann RN [address] [facility] [place] [address] Specialty Aerial Crop Duster Hematology/Oncology 09/23/23 Mitch Neri MD [address] [place] [address] [place] [address] Physician Hematology/Oncology 09/23/23 Cathy Templeton PA-C [address] [place] [address] [place] [address] Physician Feather Boner Hematology/Oncology 09/23/23 Deepika Garcia, DEEP Machine Bookkeeper 09/24/23 Advertising Solicitor Relationship Specialty Start Date End Date Sunny Jenkins MD [address] [place] [address] PCP - General Internal Medicine 08/22/23 Janet Dillard DO [address] [place] [address] Referring Family Medicine 07/14/21 Yvonne Baumann RN [address] [facility] [place] [address] Specialty Aerial Crop Duster Hematology/Oncology 09/23/23 Mitch Neri MD [address] [facility] [place] [address] Physician Hematology/Oncology 09/23/23 Cathy Templeton PA-C [address] [place] [address] [place] [address] Physician Feather Boner Hematology/Oncology 09/23/23 Deepika Garcia LSW Machine Bookkeeper 09/24/[address] [facility] [place] [address] Registered Dietitian Nutrition 10/22/23 Advertising Solicitor Relationship Specialty Start Date End Date Sunny Jenkins MD [address], [place], [place] [id number] PCP - General Internal Medicine 08/22/23 Janet Dillard DO [address] [place] [id number] Referring Family Medicine 07/14/21 Yvonne Baumann RN [address] [facility] [place] [address] Specialty Aerial Crop Duster Hematology/Oncology 09/23/23 Mitch Neri MD [address] [facility] [place] [address] Physician Hematology/Oncology 09/23/23 Cathy Templeton PA-C [address] [place] [address] [place] [address] Physician Feather Boner Hematology/Oncology 09/23/23 Deepika Garcia LSW Machine Bookkeeper 09/24/[address] [facility] [place] [address] Registered Dietitian Nutrition 10/22/23 Advertising Solicitor Relationship Specialty Start Date End Date Sunny Jnekins MD [address] [place] [address] PCP - General Internal Medicine 08/22/23 Janet Dillard DO [address] [place], [place] [address] Referring Family Medicine 07/14/21 Yvonne Baumann RN [address] [facility] [place] [address] Specialty Aerial Crop Duster Hematology/Oncology 09/23/23 Mitch Neri MD [address] [place] [address] [place] [address] Physician Hematology/Oncology 09/23/23 Cathy Templeton, PALeonelC [address] [facility] [place] [address] Physician Feather Boner Hematology/Oncology 09/23/23 Deepika Garcia LSW Machine Bookkeeper 09/24/[address] [place] [address] [place] [address] Registered Dietitian Nutrition 10/22/23 Advertising Solicitor Relationship Specialty Start Date End Date Sunny Jenkins MD [address] [place], [place] [id number] PCP - General Internal Medicine 08/22/23 Janet Dillard DO [address] [facility] [place], [place] 3699220 Referring Family Medicine 07/14/21 Yvonne Baumann, RN [address] [facility] [place] [address] Specialty Aerial Crop Duster Hematology/Oncology 09/23/23 Mitch Neri MD [facility] [place], [place] [id number] Physician Hematology/Oncology 09/23/23 Cathy Templeton PA-C [address] [facility] [place] [address] Physician Feather Boner Hematology/Oncology 09/23/23 Deepika Garcia LSW Machine Bookkeeper 09/24/[address] [place], [place] [address] [facility] [address] Registered Dietitian Nutrition 10/22/23 Advertising Solicitor Relationship Specialty Start Date End Date Sunny Jenkins MD [address] [facility], [place] [id number] PCP - General Internal Medicine 08/22/23 Janet Dillard DO [address] [facility] [place] [address] Referring Family Medicine 07/14/21 Yvonne Baumann RN [address] [facility] [place] [address] Specialty Aerial Crop Duster Hematology/Oncology 09/23/23 Mitch Neri MD [address] [facility] [place] [address] Physician Hematology/Oncology 09/23/23 Cathy Templeton PA-C [address] [facility] [place] [address] Physician Feather Boner Hematology/Oncology 09/23/23 Deepika Garcia, CONVENTION SERVICES DIRECTOR Machine Bookkeeper 09/24/[address] [facility] [place] [address] Registered Dietitian Nutrition 10/22/23 Advertising Solicitor Relationship Specialty Start Date End Date Sunny Jenkins MD [address] [facility] [place], [place] [id number] PCP - General Internal Medicine 08/22/23 Janet Dillard DO [address] [place] [address] Referring Family Medicine 07/14/21 Yvonne Baumann, RN [address] [facility] [place] [address] Specialty Aerial Crop Duster Hematology/Oncology 09/23/23 Mitch Neri MD [address] [facility] [place] [address] Physician Hematology/Oncology 09/23/23 Cathy Templeton PA-C [address] [facility] [place] [address] Physician Feather Boner Hematology/Oncology 09/23/23 Deepika Garcia, CONVENTION SERVICES DIRECTOR Machine Bookkeeper 09/24/[address] [facility] [place] [address] Registered Dietitian Nutrition 10/22/23 Advertising Solicitor Relationship Specialty Start Date End Date Sunny Jenkins MD [address] [place] [address] PCP - General Internal Medicine 08/22/23 Janet Dillard DO [address] [place] [address] Referring Family Medicine 07/14/21 Yvonne Baumann, RN [address] [facility] [place] [address] Specialty Aerial Crop Duster Hematology/Oncology 09/23/23 Mitch Neri MD [address] [place] [address] [place] [address] Physician Hematology/Oncology 09/23/23 Cathy Templeton, PA-C [address] [place] [address] [place] [address] Physician Feather Boner Hematology/Oncology 09/23/23 Deepika Garcia LSW Machine Bookkeeper 09/24/[address] [place] [address] [place] [address] Registered Dietitian Nutrition 10/22/23 Advertising Solicitor Relationship Specialty Start Date End Date Sunny Jenkins MD [address] [place] [place] [address] PCP - General Internal Medicine 08/22/23 Janet Dillard DO [address] [place] [address] Referring Family Medicine 07/14/21 Yvonne Baumann RN [address] [facility] [place] [address] Specialty Aerial Crop Duster Hematology/Oncology 09/23/23 Mitch Neri MD [address] [facility] [place] [address] Physician Hematology/Oncology 09/23/23 Cathy Templeton PA-C [address] [facility] [place] [address] Physician Feather Boner Hematology/Oncology 09/23/23 Deepika Garcia, CONVENTION SERVICES DIRECTOR Machine Bookkeeper 09/24/[address] [facility] [address] [place], [place] 333[address] Registered Dietitian Nutrition 10/22/23 Advertising Solicitor Relationship Specialty Start Date End Date Sunny Jenkins MD [address] [facility] [facility] [place] [id number] PCP - General Internal Medicine 08/22/23 Janet Dillard DO [address] [place] [address] Referring Family Medicine 07/14/21 Yvonne Baumann, RN [address] [facility] [place] [address] Specialty Aerial Crop Duster Hematology/Oncology 09/23/23 Mitch Neri MD [address] [facility] [place] [address] Physician Hematology/Oncology 09/23/23 Cathy Templeton PA-C [address] [facility] [place] [address] Physician Feather Boner Hematology/Oncology 09/23/23 Deepika Garcia, CONVENTION SERVICES DIRECTOR Machine Bookkeeper 09/24/[address] [facility] [place] [address] Registered Dietitian Nutrition 10/22/23 Advertising Solicitor Relationship Specialty Start Date End Date Sunny Jenkins MD [address] [place] [address] PCP - General Internal Medicine 08/22/23 Janet Dillard DO [address] [place] [address] Referring Family Medicine 07/14/21 Yvonne Baumann, RN [address] [facility] [address] [place], [place] 1384670 Specialty Aerial Crop Duster Hematology/Oncology 09/23/23 Mitch Neri MD 417 [facility] [place] [address] Physician Hematology/Oncology 09/23/23 Cathy Templeton, PA-C [address] [facility] [place] [address] Physician Feather Boner Hematology/Oncology 09/23/23 Deepika Garcia LSW Machine Bookkeeper 09/24/[address] [place] [address] [place] [address] Registered Dietitian Nutrition 10/22/23 Advertising Solicitor Relationship Specialty Start Date End Date Sunny Jenkins MD [address] [place] [address] PCP - General Internal Medicine 08/22/23 Janet Dillard DO [address] [place] [address] Referring Family Medicine 07/14/21 Yvonne Baumann RN [address] [facility] [place] [address] Specialty Aerial Crop Duster Hematology/Oncology 09/23/23 Mitch Neri MD [address] [facility] [place] [address] Physician Hematology/Oncology 09/23/23 Cathy Templeton PA-C [address] [place] [address] [place] [address] Physician Feather Boner Hematology/Oncology 09/23/23 Deepika Garcia LSW Machine Bookkeeper 09/24/[address] [facility] [place] [address] Registered Dietitian Nutrition 10/22/23 Advertising Solicitor Relationship Specialty Start Date End Date Sunny Jenkins MD [address] [place], [place] [id number] PCP - General Internal Medicine 08/22/23 Janet Dillard DO [address] [place] [address] Referring Family Medicine 07/14/21 Yvonne Baumann RN [address] [facility] [place] [address] Specialty Aerial Crop Duster Hematology/Oncology 09/23/23 Mitch Neri MD [address] [facility] [place] [address] Physician Hematology/Oncology 09/23/23 Cathy Templeton PA-C [address] [facility] [place] [address] Physician Feather Boner Hematology/Oncology 09/23/23 Deepika Garcia, CONVENTION SERVICES DIRECTOR Machine Bookkeeper 09/24/[address] [facility] [place] [address] Registered Dietitian Nutrition 10/22/23 Advertising Solicitor Relationship Specialty Start Date End Date Sunny Jenkins MD [address], [place] [address] PCP - General Internal Medicine 08/22/23 Janet Dillard DO [address] [place], [place] 78708[address] Referring Family Medicine 07/14/21 Yvonne Baumann, RN [address] [facility] [address] [place], [place] 7762270 Specialty Aerial Crop Duster Hematology/Oncology 09/23/23 Mitch Neri MD [address] [place], [place] [address]ry [facility] [place] [address] Physician Hematology/Oncology 09/23/23 Cathy Templeton, PALeonelC [address] [facility] [place] [address] Physician Feather Boner Hematology/Oncology 09/23/23 Deepika Garcia, [facility] Machine Bookkeeper 09/24/[address] [facility] [place] [address] Registered Dietitian Nutrition 10/22/23 Advertising Solicitor Relationship Specialty Start Date End Date Sunny Jenkins MD [address], [place] [id number] PCP - General Internal Medicine 08/22/23 Janet Dillard DO [address] [facility] [place] [address] Referring Family Medicine 07/14/21 Yvonne Baumann RN [address] [facility] [place] [address] Specialty Aerial Crop Duster Hematology/Oncology 09/23/23 Mitch Neri MD [address] [place] [address] [place] [address] Physician Hematology/Oncology 09/23/23 Cathy Templeton PALeonelC [address] [place] [address] [place] [address] Physician Feather Boner Hematology/Oncology 09/23/23 Deepika Garcia LSW Machine Bookkeeper 09/24/[address] [place] [address] [place] [address] Registered Dietitian Nutrition 10/22/23 Advertising Solicitor Relationship Specialty Start Date End Date Sunny Jenkins MD [address] [facility] [place] [address] PCP - General Internal Medicine 08/22/23 Janet Dillard DO [address] [place] [address] Referring Family Medicine 07/14/21 Yvonne Baumann RN [address] [facility] [place] [address] Specialty Aerial Crop Duster Hematology/Oncology 09/23/23 Mitch Neri MD [address] [place] [address] [place] [address] Physician Hematology/Oncology 09/23/23 Cathy Templeton PA-C [address] [facility] [place] [address] Physician Feather Boner Hematology/Oncology 09/23/23 Deepika Garcia, CONVENTION SERVICES DIRECTOR Machine Bookkeeper 09/24/[address] [facility] [place] [address] Registered Dietitian Nutrition 10/22/23 Advertising Solicitor Relationship Specialty Start Date End Date Sunny Jenkins MD [address] [place], [place] [id number] PCP - General Internal Medicine 08/22/23 Janet Dillard DO [address] [place], [place] [address] Referring Family Medicine 07/14/21 Yvonne Baumann, RN [address] [facility] [place] [address] Specialty Aerial Crop Duster Hematology/Oncology 09/23/23 Mitch Neri MD [address] [place] [address] [place] [address] Physician Hematology/Oncology 09/23/23 Cathy Templeton PA-C [address] [facility] [place] [address] Physician Feather Boner Hematology/Oncology 09/23/23 Deepika Garcia LSW Machine Bookkeeper 09/24/[address] [facility] [place] [address] Registered Dietitian Nutrition 10/22/23 Advertising Solicitor Relationship Specialty Start Date End Date Sunny Jenkins MD [address] [place] [address] PCP - General Internal Medicine 08/22/23 Janet Dillard DO [address] [facility] [place] [address]68320 Referring Family Medicine 07/14/21 Yvonne Baumann, RN [address] [facility] [place] [address] Specialty Aerial Crop Duster Hematology/Oncology 09/23/23 Mitch Neri MD [address] [facility] [place] [address] Physician Hematology/Oncology 09/23/23 Cathy Templeton PA-C [address] [facility] [place] [address] Physician Feather Boner Hematology/Oncology 09/23/23 Deepika Garcia LSW Machine Bookkeeper 09/24/[address] [facility] [address] [facility] [place] [address] Registered Dietitian Nutrition 10/22/23 Advertising Solicitor Relationship Specialty Start Date End Date Sunny Jenkins MD [address] [facility] [place], [place] [address] PCP - General Internal Medicine 08/22/23 Janet Dillard DO [address] [facility] [place], [place] 38327[address] Referring Family Medicine 07/14/21 Yvonne Baumann, RN [address] [facility] [place] [address] Specialty Aerial Crop Duster Hematology/Oncology 09/23/23 Mitch Neri MD [address] [facility] [place] [address] Physician Hematology/Oncology 09/23/23 Cathy Templeton PA-C [address] [place] [address] [place] [address] Physician Feather Boner Hematology/Oncology 09/23/23 Deepika Garcia, CONVENTION SERVICES DIRECTOR Machine Bookkeeper 09/24/[address] [place] [address] [place] [address] Registered Dietitian Nutrition 10/22/23 Advertising Solicitor Relationship Specialty Start Date End Date Sunny Jenkins MD [address] [place], [place] [id number] PCP - General Internal Medicine 08/22/23 Janet Dillard DO [address] [place] [address] Referring Family Medicine 07/14/21 Yvonne Baumann, MALOREI [address] [facility] [place] [address] Specialty Aerial Crop Duster Hematology/Oncology 09/23/23 Mitch Neri MD [address] [place] [address] [place] [address] Physician Hematology/Oncology 09/23/23 Cathy Templeton PA-C [address] [place] [address] [place] [address] Physician Feather Boner Hematology/Oncology 09/23/23 Deepika Garcia, DEEP Machine Bookkeeper 09/24/[address] [place] [address] [place] [address] Registered Dietitian Nutrition 10/22/23 Advertising Solicitor Relationship Specialty Start Date End Date Sunny Jenkins MD [address] [place], [place] [id number] PCP - General Internal Medicine 08/22/23 Janet Dillard DO [address] [place], [place] [id number] Referring Family Medicine 07/14/21 Yvonne Baumann, RN [address] [facility] [place] [address] Specialty Aerial Crop Duster Hematology/Oncology 09/23/23 Mitch Neri MD [address] [facility] [place] [address] Physician Hematology/Oncology 09/23/23 Cathy Templeton, PA-C [address] [facility] [place] [address] Physician Feather Boner Hematology/Oncology 09/23/23 Deepika Garcia LSW Machine Bookkeeper 09/24/[address] [facility] [place] [address] Registered Dietitian Nutrition 10/22/23 Team Status: Inactive Member Role Status Dates Janet Dillard DO Primary Care Provider Active Start: January 06, 2024 End: January 06, 2024 Citlali Strickland APRN Attending Provider Active Start: January 06, 2024 End: January 06, 2024 Advertising Solicitor Relationship Specialty Start Date End Date Sunny Jenkins MD [address], [place] [id number] PCP - General Internal Medicine 08/22/23 Janet Dillard DO [address] [facility] [place] [address] Referring Family Medicine 07/14/21 Yvonne Baumann RN [address] [facility] [place] [address] Specialty Aerial Crop Duster Hematology/Oncology 09/23/23 Mitch Neri MD [address] [place] [address] [place] [address] Physician Hematology/Oncology 09/23/23 Cathy Templeton PA-C [address] [place] [address] [place] [address] Physician Feather Boner Hematology/Oncology 09/23/23 Deepika Garcia LSW Machine Bookkeeper 09/24/[address] [place] [address] [place] [address] Registered Dietitian Nutrition 10/22/23 Advertising Solicitor Relationship Specialty Start Date End Date Sunny Jenkins MD [address] [facility] [place], [place] [phone] PCP - General Internal Medicine 08/22/23 Janet Dillard DO [address] [place] [address] Referring Family Medicine 07/14/21 Yvonne Baumann RN [address] [facility] [place] [address] Specialty Aerial Crop Duster Hematology/Oncology 09/23/23 Mitch Neri MD [address] [place] [address] [place] [address] Physician Hematology/Oncology 09/23/23 Cathy Templeton PA-C [address] [facility] [place] [address] Physician Feather Boner Hematology/Oncology 09/23/23 Deepika Garcia LSW Machine Bookkeeper 09/24/[address] [facility] [place] [address] Registered Dietitian Nutrition 10/22/23 Advertising Solicitor Relationship Specialty Start Date End Date Snuny Jenkins MD [address], [place], [place] [id number] PCP - General Internal Medicine 08/22/23 Janet Dillard DO [address] [place], [place] 480[address] Referring Family Medicine 07/14/21 Yvonne Baumann, RN [address] [facility] [place] [address] Specialty Aerial Crop Duster Hematology/Oncology 09/23/23 Mitch Neri MD 417 [facility] [place] [address] Physician Hematology/Oncology 09/23/23 Cathy Templeton PA-C [address] [facility] [place] [address] Physician Feather Boner Hematology/Oncology 09/23/23 Deepika Garcia LSW Machine Bookkeeper 09/24/[address] [facility] [place] [address] Registered Dietitian Nutrition 10/22/23 Advertising Solicitor Relationship Specialty Start Date End Date Sunny Jenkins MD [address] [place] [address] PCP - General Internal Medicine 08/22/23 Janet Dillard DO [address] [place] [id number] Referring Family Medicine 07/14/21 Yvonne Baumann, MALORIE [address] [facility] [place] [address] Specialty Aerial Crop Duster Hematology/Oncology 09/23/23 Mitch Neri MD [address] [facility] [place] [address] Physician Hematology/Oncology 09/23/23 Cathy Templeton PA-C [address] [facility] [place] [address] Physician Feather Boner Hematology/Oncology 09/23/23 Deepika Garcia LSW Machine Bookkeeper 09/24/[address] [place], [place] [address] [facility] [place] [address] Registered Dietitian Nutrition 10/22/23 Advertising Solicitor Relationship Specialty Start Date End Date Sunny Jenkins MD [address] [facility], [place] [id number] PCP - General Internal Medicine 08/22/23 Janet Dillard DO [address] [place] [id number] Referring Family Medicine 07/14/21 Yvonne Baumann RN [address] [facility] [place] [address] Specialty Aerial Crop Duster Hematology/Oncology 09/23/23 Mitch Neri MD [address] [facility] [place] [address] Physician Hematology/Oncology 09/23/23 Cathy Templeton PA-C [address] [place] [address] [place] [address] Physician Feather Boner Hematology/Oncology 09/23/23 Deepika Garcia, CONVENTION SERVICES DIRECTOR Machine Bookkeeper 09/24/[address] [place] [address] [place] [address] Registered Dietitian Nutrition 10/22/23 Advertising Solicitor Relationship Specialty Start Date End Date Sunny Jenkins MD [address] [place], [place] [id number] PCP - General Internal Medicine 08/22/23 Janet Dillard DO [address] [place] [address] Referring Family Medicine 07/14/21 Yvonne Baumann, MALORIE [address] [facility] [place] [address] Specialty Aerial Crop Duster Hematology/Oncology 09/23/23 Mitch Neri MD [address] [place] [address] [place] [address] Physician Hematology/Oncology 09/23/23 Cathy Templeton PA-C [address] [place] [address] [place] [address] Physician Feather Boner Hematology/Oncology 09/23/23 Deepika Garcia, CONVENTION SERVICES DIRECTOR Machine Bookkeeper 09/24/[address] [place] [address] [place] [address] Registered Dietitian Nutrition 10/22/23 Advertising Solicitor Relationship Specialty Start Date End Date Sunyn Jenkins MD [address] [place] [address] PCP - General Internal Medicine 08/22/23 Janet Dillard DO [address] [facility] [place] [address] Referring Family Medicine 07/14/21 Yvonne Baumann, RN [address] [facility] [place] [address] Specialty Aerial Crop Duster Hematology/Oncology 09/23/23 Mitch Neri MD [address] [facility] [place] [address] Physician Hematology/Oncology 09/23/23 Cathy Templeton, PA-C [address] [facility] [place] [address] Physician Feather Boner Hematology/Oncology 09/23/23 Deepika Garcia LSW Machine Bookkeeper 09/24/[address] [facility] [place] [address] Registered Dietitian Nutrition 10/22/23 Advertising Solicitor Relationship Specialty Start Date End Date Sunny Jenkins MD [address] [place] [address] PCP - General Internal Medicine 08/22/23 Janet Dillard DO [address] [place] [address] Referring Family Medicine 07/14/21 Yvonne Baumann RN [address] [place] [address] Specialty Aerial Crop Duster Hematology/Oncology 09/23/23 Mitch Neri MD [address] [place] [address] [place] [address] Physician Hematology/Oncology 09/23/23 Cathy Templeton PA-C [address] [place] [address] [place] [address] Physician Feather Boner Hematology/Oncology 09/23/23 Deepika Garcia LSW Machine Bookkeeper 09/24/[address] [place] [address] [place] [address] Registered Dietitian Nutrition 10/22/23 Advertising Solicitor Relationship Specialty Start Date End Date GregorySunny loera MD [address] [facility] [place] [address] PCP - General Internal Medicine 08/22/23 Janet Dillard DO [address] [place], [place] [address]34[address] Referring Family Medicine 07/14/21 Yvonne Baumann, MALORIE [address] [facility] [place] [address] Specialty Aerial Crop Duster Hematology/Oncology 09/23/23 Mitch Neri MD [address] [place] [address] [place] [address] Physician Hematology/Oncology 09/23/23 Cathy Templeton PA-C [address] [place] [address] [place] [address] Physician Feather Boner Hematology/Oncology 09/23/23 Deepika Garcia, CONVENTION SERVICES DIRECTOR Machine Bookkeeper 09/24/[address] [facility] [place] [address] Registered Dietitian Nutrition 10/22/23 Advertising Solicitor Relationship Specialty Start Date End Date Sunny Jenkins MD [address], [place] [address] PCP - General Internal Medicine 08/22/23 Janet Dillard DO [address] [place] [address] Referring Family Medicine 07/14/21 Yvonne Baumann, RN [address] [facility] [place] [address] Specialty Aerial Crop Duster Hematology/Oncology 09/23/23 Mitch Neri MD [address] [place], [place] [address]ry [facility] [place] [address] Physician Hematology/Oncology 09/23/23 Cathy Templeton, PA-C [address] [place] [address] [place] [address] Physician Feather Boner Hematology/Oncology 09/23/23 Deepika Garcia, CONVENTION SERVICES DIRECTOR Machine Bookkeeper 09/24/[address] [facility] [place] [address] Registered Dietitian Nutrition 10/22/23 Advertising Solicitor Relationship Specialty Start Date End Date Sunny Jenkins MD [address], [place] [address] PCP - General Internal Medicine 08/22/23 Janet Dillard DO [address] [place] [address] Referring Family Medicine 07/14/21 Yvonne Baumann RN [address] [facility] [place] [address] Specialty Aerial Crop Duster Hematology/Oncology 09/23/23 Mitch Neri MD [address] [facility] [place] [address] Physician Hematology/Oncology 09/23/23 Cathy Templeton PA-C [facility] [place] [address] Physician Feather Boner Hematology/Oncology 09/23/23 Deepika Garcia LSW Machine Bookkeeper 09/24/[address] [place] [address] [place] [address] Registered Dietitian Nutrition 10/22/23 Advertising Solicitor Relationship Specialty Start Date End Date Sunny Jenkins MD [address] [facility] [place] [address] PCP - General Internal Medicine 08/22/23 Janet Dillard DO [address] [place] [address] Referring Family Medicine 07/14/21 Yvonne Baumann RN [address] [place] [address] Specialty Aerial Crop Duster Hematology/Oncology 09/23/23 04/21/24 Mitch Neri MD [address] [place] [address] Physician Hematology/Oncology 09/23/23 Cathy Templeton PA-C [address] [place] [address] [place] [address] Physician Feather Boner Hematology/Oncology 09/23/23 Deepika Garcia, CONVENTION SERVICES DIRECTOR Machine Bookkeeper 09/24/[address] [facility] [place] [address] Registered Dietitian Nutrition 10/22/23 Nia Snider, RN Specialty Aerial Crop Duster Hematology/Oncology 04/22/24 Advertising Solicitor Relationship Specialty Start Date End Date Sunny Jenkins MD [address] [place] [address] PCP - General Internal Medicine 08/22/23 Janet Dillard DO [address] [place] [address] Referring Family Medicine 07/14/21 Mitch Neri MD 417 [facility] [place] [address] Physician Hematology/Oncology 09/23/23 Deepika Garcia, CONVENTION SERVICES DIRECTOR Machine Bookkeeper 09/24/[address] [facility] [place] [address] Registered Dietitian Nutrition 10/22/23 Nia Snider, MALORIE Specialty Aerial Crop Duster Hematology/Oncology 04/22/24 Advertising Solicitor Relationship Specialty Start Date End Date Sunny Jenkins MD [address] [place] [address] PCP - General Internal Medicine 08/22/23 Janet Dillard DO [address] [place] [address] Referring Family Medicine 07/14/21 Yvonne Baumann, MALORIE [address] [facility] [place] [address] Specialty Aerial Crop Duster Hematology/Oncology 09/23/23 04/21/24 Mitch Neri MD [address] [place] [address] Physician Hematology/Oncology 09/23/23 Cathy Templeton PALeonelC [address] [facility] [place] [address] Physician Feather Boner Hematology/Oncology 09/23/23 Deepika Garcia LSW Machine Bookkeeper 09/24/[address] [place] [address] [place] [address] Registered Dietitian Nutrition 10/22/23 Advertising Solicitor Relationship Specialty Start Date End Date Sunny Jenkins MD [address] [facility] Avis [facility] [place] [address] PCP - General Internal Medicine 08/22/23 Janet Dillard DO [address] [place] [id number] Referring Family Medicine 07/14/21 Mitch Neri MD [address] [place] [address] Physician Hematology/Oncology 09/23/23 Deepika Garcia LSW Machine Bookkeeper 09/24/[address] [place] [address] [place] [address] Registered Dietitian Nutrition 10/22/23 Nia Snider, RN Specialty Aerial Crop Duster Hematology/Oncology 04/22/24 Advertising Solicitor Relationship Specialty Start Date End Date Sunny Jenkins MD [address] [facility] [place] [address] PCP - General Internal Medicine 08/22/23 Janet Dillard DO [address] [place] [address] Referring Family Medicine 07/14/21 Mitch Neri MD [address] [place] [address] Physician Hematology/Oncology 09/23/23 Deepika Garcia, CONVENTION SERVICES DIRECTOR Machine Bookkeeper 09/24/[address] [place] [address] [place] [address] Registered Dietitian Nutrition 10/22/23 Nia Snider, MALORIE Specialty Aerial Crop Duster Hematology/Oncology 04/22/24 Advertising Solicitor Relationship Specialty Start Date End Date Sunny Jenkins MD [address] [facility] [place] [address] PCP - General Internal Medicine 08/22/23 Janet Dillard DO [address] [place] [address] Referring Family Medicine 07/14/21 Mitch Neri MD [address] [place] [address] [place] [address] Physician Hematology/Oncology 09/23/23 Deepika Garcia, CONVENTION SERVICES DIRECTOR Machine Bookkeeper 09/24/[address] [place] [address] [place] [address] Registered Dietitian Nutrition 10/22/23 Nia Snider, MALORIE Specialty Aerial Crop Duster Hematology/Oncology 04/22/24 Advertising Solicitor Relationship Specialty Start Date End Date Sunny Jenkins MD [address] [place] [address] PCP - General Internal Medicine 08/22/23 Janet Dillard DO [address] [facility] [place] [address] Referring Family Medicine 07/14/21 Mitch Neri MD [address] [place] [address] [place] [address] Physician Hematology/Oncology 09/23/23 Deepika Garcia LSW Machine Bookkeeper 09/24/[address] [place] [address] [place] [address] Registered Dietitian Nutrition 10/22/23 Nia Snider, MALORIE Specialty Aerial Crop Duster Hematology/Oncology 04/22/24 Advertising Solicitor Relationship Specialty Start Date End Date Sunny Jenkins MD [address] [facility] [place] [address] PCP - General Internal Medicine 08/22/23 Janet Dillard DO [address] [place] [address] Referring Family Medicine 07/14/21 Mitch Neri MD [address] [place] [address] [place] [address] Physician Hematology/Oncology 09/23/23 Deepika Garcia LSW Machine Bookkeeper 09/24/[address] [facility] [place] [address] Registered Dietitian Nutrition 10/22/23 Nia Snider, RN Specialty Aerial Crop Duster Hematology/Oncology 04/22/24 Advertising Solicitor Relationship Specialty Start Date End Date Sunny Jenkins MD [address] [place] [address] PCP - General Internal Medicine 08/22/23 Janet Dillrad DO [address] [place], [place] 85856[address] Referring Family Medicine 07/14/21 Mitch Neri MD [address] [place] [address] [place] [address] Physician Hematology/Oncology 09/23/23 Deepika Garcia LSW Machine Bookkeeper 09/24/[address] [place] [address] [place] [address] Registered Dietitian Nutrition 10/22/23 Nia Snider, RN Specialty Aerial Crop Duster Hematology/Oncology 04/22/24 Advertising Solicitor Relationship Specialty Start Date End Date Rita Amanda PCP - General 01/28/07 08/21/23 Janet Dillard DO [address] [place] [id number] Referring Family Medicine 07/14/21 Advertising Solicitor Relationship Specialty Start Date End Date Sunny Jenkins MD [address] [place] [id number] PCP - General Internal Medicine 08/22/23 Janet Dillard DO [address] [place] [place] [address] Referring Family Medicine 07/14/21 Mitch Neri MD 417 [facility] [place] [address] Physician Hematology/Oncology 09/23/23 Deepika Garcia, CONVENTION SERVICES DIRECTOR Machine Bookkeeper 09/24/[address] [facility] [place] [address] Registered Dietitian Nutrition 10/22/23 Nia Snider, MALORIE Specialty Aerial Crop Duster Hematology/Oncology 04/22/24 Advertising Solicitor Relationship Specialty Start Date End Date Sunny Jenkins MD [address] [facility] [place] [address] PCP - General Internal Medicine 08/22/23 Janet Dillard DO [address] [facility] [place], [place] [address] Referring Family Medicine 07/14/21 Mitch Neri MD 417 [facility] [place] [address] Physician Hematology/Oncology 09/23/23 Deepika Garcia, CONVENTION SERVICES DIRECTOR Machine Bookkeeper 09/24/[address] [facility] [place] [address] Registered Dietitian Nutrition 10/22/23 Nia Snider, MALORIE Specialty Aerial Crop Duster Hematology/Oncology 04/22/24 Advertising Solicitor Relationship Specialty Start Date End Date Sunny Jenkins MD [address] [facility] [place], [place] [address]20 PCP - General Internal Medicine 08/22/23 Janet Dillard DO [address] [facility] [place] [address] Referring Family Medicine 07/14/21 Mitch Neri MD [address] [place] [address] [place] [address] Physician Hematology/Oncology 09/23/23 Deepika Garcia, CONVENTION SERVICES DIRECTOR Machine Bookkeeper 09/24/[address] [place] [address] [place] [address] Registered Dietitian Nutrition 10/22/23 Nia Snider, MALORIE Specialty Aerial Crop Duster Hematology/Oncology 04/22/24 Advertising Solicitor Relationship Specialty Start Date End Date Sunny Jenkins MD [address] [facility] [place] [address] PCP - General Internal Medicine 08/22/23 Janet Dillard DO [address] [facility] [place] [address] Referring Family Medicine 07/14/21 Mitch Neri MD [address] [place] [address] [place] [address] Physician Hematology/Oncology 09/23/23 Deepika Garcia, CONVENTION SERVICES DIRECTOR Machine Bookkeeper 09/24/[address] [place] [address] [place] [address] Registered Dietitian Nutrition 10/22/23 Nia Snider, MALORIE Specialty Aerial Crop Duster Hematology/Oncology 04/22/24 Advertising Solicitor Relationship Specialty Start Date End Date Sunny Jenkins MD [address] [place] [address] PCP - General Internal Medicine 08/22/23 Janet Dillard DO [address] [place] [address] Referring Family Medicine 07/14/21 Mitch Neri MD 417 [facility] [place] [address] Physician Hematology/Oncology 09/23/23 Deepika Garcia, CONVENTION SERVICES DIRECTOR Machine Bookkeeper 09/24/[address] [facility] [place] [address] Registered Dietitian Nutrition 10/22/23 Nia Snider, MALORIE Specialty Aerial Crop Duster Hematology/Oncology 04/22/24 Advertising Solicitor Relationship Specialty Start Date End Date Sunny Jenkins MD [address] [place] [address] PCP - General Internal Medicine 08/22/23 Janet Dillard DO [address] [place] [address] Referring Family Medicine 07/14/21 Mitch Neri MD 417 [facility] [place] [address] Physician Hematology/Oncology 09/23/23 Deepika Garcia LSW Machine Bookkeeper 09/24/[address] [facility] [place] [address] Registered Dietitian Nutrition 10/22/23 Nia Snider, RN Specialty Aerial Crop Duster Hematology/Oncology 04/22/24 Advertising Solicitor Relationship Specialty Start Date End Date Sunny Jenkins MD [address] [facility] [place] [address] PCP - General Internal Medicine 08/22/23 Janet Dillard DO [address] [facility] [place] [address] Referring Family Medicine 07/14/21 Mitch Neri MD [address] [facility] [place] [address] Physician Hematology/Oncology 09/23/23 Deepika Garcia LSW Machine Bookkeeper 09/24/[address] [facility] [place] [address] Registered Dietitian Nutrition 10/22/23 Nia Snider, MALORIE Specialty Aerial Crop Duster Hematology/Oncology 04/22/24 Advertising Solicitor Relationship Specialty Start Date End Date Sunny Jenkins MD [address] [facility] [place], [place] [id number] PCP - General Internal Medicine 04/02/23 Advertising Solicitor Relationship Specialty Start Date End Date Sunny Jenkins MD [address] [facility] [place] [address] PCP - General Internal Medicine 08/22/23 Janet Dillard DO [address] [facility] [place], [place] [address]4220 Referring Family Medicine 07/14/21 Mitch Neri MD 417 [facility] [place] [address] Physician Hematology/Oncology 09/23/23 Deepika Garcia, CONVENTION SERVICES DIRECTOR Machine Bookkeeper 09/24/[address] [facility] [place] [address] Registered Dietitian Nutrition 10/22/23 Nia Snider, RN Specialty Aerial Crop Duster Hematology/Oncology 04/22/24 Advertising Solicitor Relationship Specialty Start Date End Date Sunny Jenkins MD [address] [place] [address] PCP - General Internal Medicine 08/22/23 Janet Dillard DO [address] [place] [address] Referring Family Medicine 07/14/21 Mitch Neri MD [address] [place] [address] [place] [address] Physician Hematology/Oncology 09/23/23 Deepika Garcia, CONVENTION SERVICES DIRECTOR Machine Bookkeeper 09/24/[address] [facility] [place] [address] Registered Dietitian Nutrition 10/22/23 Nia Snider, MALORIE Specialty Aerial Crop Duster Hematology/Oncology 04/22/24 Advertising Solicitor Relationship Specialty Start Date End Date Sunny Jenkins MD [address] [place] [address] PCP - General Internal Medicine 08/22/23 Janet Dillard DO [address] [place] [address] Referring Family Medicine 07/14/21 Mitch Neri MD 417 [facility] [place] [address] Physician Hematology/Oncology 09/23/23 Deepika Garcia, CONVENTION SERVICES DIRECTOR Machine Bookkeeper 09/24/[address] [facility] [place] [address] Registered Dietitian Nutrition 10/22/23 Nia Snider, RN Specialty Aerial Crop Duster Hematology/Oncology 04/22/24 Advertising Solicitor Relationship Specialty Start Date End Date Sunny Jenkins MD [address] [place] [address] PCP - General Internal Medicine 08/22/23 Janet Dillard DO [address] [place] [address] Referring Family Medicine 07/14/21 Mitch Neri MD 417 [facility] [place] [address] Physician Hematology/Oncology 09/23/23 Deepika Garcia, CONVENTION SERVICES DIRECTOR Machine Bookkeeper 09/24/[address] [facility] [place] [address] Registered Dietitian Nutrition 10/22/23 Nia Snider, MALORIE Specialty Aerial Crop Duster Hematology/Oncology 04/22/24 Advertising Solicitor Relationship Specialty Start Date End Date Sunny Jenkins MD [address] [place] [address] PCP - General Internal Medicine 08/22/23 Janet Dillard DO [address] [place] [address] Referring Family Medicine 07/14/21 Mitch Neri MD 417 [facility] [place] [address] Physician Hematology/Oncology 09/23/23 Deepika Garcia, CONVENTION SERVICES DIRECTOR Machine Bookkeeper 09/24/[address] [facility] [place] [address] Registered Dietitian Nutrition 10/22/23 Nia Snider, RN Specialty Aerial Crop Duster Hematology/Oncology 04/22/24 Advertising Solicitor Relationship Specialty Start Date End Date Sunny Jenkins MD [address] [place] [address] PCP - General Internal Medicine 08/22/23 Janet Dillard DO [address] [place] [address] Referring Family Medicine 07/14/21 Mitch Neri MD [address] [place] [address] [place] [address] Physician Hematology/Oncology 09/23/23 Deepika Garcia, CONVENTION SERVICES DIRECTOR Machine Bookkeeper 09/24/[address] [place] [address] [place] [address] Registered Dietitian Nutrition 10/22/23 Nia Snider, RN Specialty Aerial Crop Duster Hematology/Oncology 04/22/24 Advertising Solicitor Relationship Specialty Start Date End Date Sunny Jenkins MD [address] [place] [address] PCP - General Internal Medicine 08/22/23 Janet Dillard DO [address] [facility] [place] [address] Referring Family Medicine 07/14/21 Mitch Neri MD [address] [place] [address] Physician Hematology/Oncology 09/23/23 Deepika Garcia, CONVENTION SERVICES DIRECTOR Machine Bookkeeper 09/24/[address] [facility] [place] [address] Registered Dietitian Nutrition 10/22/23 Nia Snider, MALORIE Specialty Aerial Crop Duster Hematology/Oncology 04/22/24 Advertising Solicitor Relationship Specialty Start Date End Date Sunny Jenkins MD [address] [facility] [place] [address] PCP - General Internal Medicine 08/22/23 Janet Dillard DO [address] [facility] [place] [address] Referring Family Medicine 07/14/21 Mitch Neri MD [address] [place] [address] Physician Hematology/Oncology 09/23/23 Deepika Garcia, CONVENTION SERVICES DIRECTOR Machine Bookkeeper 09/24/[address] [facility] [place] [address] Registered Dietitian Nutrition 10/22/23 Nia Snider, MALORIE Specialty Aerial Crop Duster Hematology/Oncology 04/22/24 Advertising Solicitor Relationship Specialty Start Date End Date Sunny Jenkins MD [address] [facility] [place] [address] PCP - General Internal Medicine 08/22/23 Janet Dillard DO [address] [facility] [place], [place] [address] Referring Family Medicine 07/14/21 Mitch Neri MD [address] [place] [address] [place] [address] Physician Hematology/Oncology 09/23/23 Deepika Garcia LSW Machine Bookkeeper 09/24/[address] [place] [address] [place] [address] Registered Dietitian Nutrition 10/22/23 Nia Snider, MALORIE Specialty Aerial Crop Duster Hematology/Oncology 04/22/24 Advertising Solicitor Relationship Specialty Start Date End Date Sunny Jenkins MD [address] [facility] [place] [address] PCP - General Internal Medicine 04/02/23 Team Status: Active Member Role Status Dates Sunny Jenkins MD Primary Care Provider Active S tart: July 26, 2024 Nikko Corona DO Attending Provider Active Sta rt: July 26, 2024 Team Status: Active Member Role Status Dates Sunny Jenkins MD Primary Care Provide r, Attending Provider Active Start: September 29, 2024 Advertising Solicitor Relationship Specialty Start Date End Date Sunny Jenkins MD [address] [facility] [place] [address] PCP - General Internal Medicine 08/22/23 Janet Dillard DO [address] [facility] [place], [place] [id number] Referring Family Medicine 07/14/21 Mitch Neri MD [address] [place] [address] Physician Hematology/Oncology 09/23/23 Deepika Garcia, CONVENTION SERVICES DIRECTOR Machine Bookkeeper 09/24/[address] [place] [address] [place] [address] Registered Dietitian Nutrition 10/22/23 Nia Snider, MALORIE Specialty Aerial Crop Duster Hematology/Oncology 04/22/24 Advertising Solicitor Relationship Specialty Start Date End Date Sunny Jenkins MD [address] [place] [address] PCP - General Internal Medicine 04/02/23 Advertising Solicitor Relationship Specialty Start Date End Date Sunny Jenkins MD [address] [place] [address] PCP - General Internal Medicine 04/02/23 Advertising Solicitor Relationship Specialty Start Date End Date Sunny Jenkins MD [address] [place] [address] PCP - General Internal Medicine 04/02/23 Advertising Solicitor Relationship Specialty Start Date End Date Sunny Jenkins MD [address] [place] [address] PCP - General Internal Medicine 04/02/23 Advertising Solicitor Relationship Specialty Start Date End Date Sunny Jenkins MD [address] [place] [address] PCP - General Internal Medicine 04/02/23 Advertising Solicitor Relationship Specialty Start Date End Date Sunny Jenkins MD [address] [place] [address] PCP - General Internal Medicine 04/02/23 Advertising Solicitor Relationship Specialty Start Date End Date Sunny Jenkins MD [address], [place] [address] PCP - General Internal Medicine 04/02/23 Advertising Solicitor Relationship Specialty Start Date End Date Sunny Jenkins MD [address], [place] [address] PCP - General Internal Medicine 04/02/23 Advertising Solicitor Relationship Specialty Start Date End Date Sunny Jenkins MD [address], [place] [address] PCP - General Internal Medicine 04/02/23 Advertising Solicitor Relationship Specialty Start Date End Date Sunny Jenkins MD [address], [place] [address] PCP - General Internal Medicine 04/02/23 Advertising Solicitor Relationship Specialty Start Date End Date Sunny Jenkins MD [address], [place] [address] PCP - General Internal Medicine 04/02/23 Advertising Solicitor Relationship Specialty Start Date End Date Sunny Jenkins MD [address], [place] [address] PCP - General Internal Medicine 04/02/23 Advertising Solicitor Relationship Specialty Start Date End Date Sunny Jenkins MD [address], [place] [address] PCP - General Internal Medicine 04/02/23 Advertising Solicitor Relationship Specialty Start Date End Date Sunny Jenkins MD [address] [place] [address] PCP - General Internal Medicine 04/02/23 Advertising Solicitor Relationship Specialty Start Date End Date Sunny Jenkins MD [address], [place] [address] PCP - General Internal Medicine 04/02/23 Advertising Solicitor Relationship Specialty Start Date End Date Sunny Jenkins MD [address] [place] [address] PCP - General Internal Medicine 04/02/23 Advertising Solicitor Relationship Specialty Start Date End Date Sunny Jenkins MD [address] [place] [address] PCP - General Internal Medicine 04/02/23 Advertising Solicitor Relationship Specialty Start Date End Date Sunny Jenkins MD [address], [place] [address] PCP - General Internal Medicine 04/02/23 Advertising Solicitor Relationship Specialty Start Date End Date Sunny Jenkins MD [address] [place] [address] PCP - General Internal Medicine 08/22/23 Janet Dillard DO [address] [place] [address] Referring Family Medicine 07/14/21 Mitch Neri MD [address] [facility] [place] [address] Physician Hematology/Oncology 09/23/23 Deepika Garcia, CONVENTION SERVICES DIRECTOR Machine Bookkeeper 09/24/[address] [facility] [place] [address] Registered Dietitian Nutrition 10/22/23 Nia Snider, RN Specialty Aerial Crop Duster Hematology/Oncology 04/22/24 Advertising Solicitor Relationship Specialty Start Date End Date Sunny Jenkins MD [address] [place] [address] PCP - General Internal Medicine 08/22/23 Janet Dillard DO [address] [place] [address] Referring Family Medicine 07/14/21 Mitch Neri MD [address] [facility] [place] [address] Physician Hematology/Oncology 09/23/23 Deepika Garcia, CONVENTION SERVICES DIRECTOR Machine Bookkeeper 09/24/[address] [facility] [place] [address] Registered Dietitian Nutrition 10/22/23 Nia Snider, MALORIE Specialty Aerial Crop Duster Hematology/Oncology 04/22/24 Advertising Solicitor Relationship Specialty Start Date End Date Sunny Jenkins MD [address] [place] [place] [address] PCP - General Internal Medicine 08/22/23 Janet Dillard DO [address] [facility] [place], [place] [id number] Referring Family Medicine 07/14/21 Mitch Neri MD [address] [facility] [place] [address] Physician Hematology/Oncology 09/23/23 Deepika Garcia, CONVENTION SERVICES DIRECTOR Machine Bookkeeper 09/24/[address] [facility] [place] [address] Registered Dietitian Nutrition 10/22/23 Nia Snider, MALORIE Specialty Aerial Crop Duster Hematology/Oncology 04/22/24 Advertising Solicitor Relationship Specialty Start Date End Date Sunny Jenkins MD [address] [facility] [place] [address] PCP - General Internal Medicine 08/22/23 Janet Dillard DO [address] [facility] [place], [place] [address] Referring Family Medicine 07/14/21 Mitch Neri MD [address] [facility] [place] [address] Physician Hematology/Oncology 09/23/23 Deepika Garcia, CONVENTION SERVICES DIRECTOR Machine Bookkeeper 09/24/[address] [facility] [place] [address] Registered Dietitian Nutrition 10/22/23 Nia Snider, MALORIE Specialty Aerial Crop Duster Hematology/Oncology 04/22/24 Advertising Solicitor Relationship Specialty Start Date End Date Sunny Jenkins MD [address] [facility] [place] [address] PCP - General Internal Medicine 08/22/23 Janet Dillard DO [address] [place] [address] Referring Family Medicine 07/14/21 Mitch Neri MD [address] [facility] [place] [address] Physician Hematology/Oncology 09/23/23 Deepika Garcia, CONVENTION SERVICES DIRECTOR Machine Bookkeeper 09/24/[address] [facility] [place] [address] Registered Dietitian Nutrition 10/22/23 Nia Snider, MALORIE Specialty Aerial Crop Duster Hematology/Oncology 04/22/24 Advertising Solicitor Relationship Specialty Start Date End Date Sunny Jenkins MD [address] [place] [address] PCP - General Internal Medicine 08/22/23 Janet Dillard DO [address] [place] [address] Referring Family Medicine 07/14/21 Mitch Neri MD [address] [facility] [place] [address] Physician Hematology/Oncology 09/23/23 Deepika Garcia, CONVENTION SERVICES DIRECTOR Machine Bookkeeper 09/24/[address] [place] [address] Registered Dietitian Nutrition 10/22/23 Nia Snider, MALORIE Specialty Aerial Crop Duster Hematology/Oncology 04/22/24 Advertising Solicitor Relationship Specialty Start Date End Date Sunny Jenkins MD [address] [place], [place] [id number] PCP - General Internal Medicine 08/22/23 Janet Dillard DO [address] [place] [address] Referring Family Medicine 07/14/21 Mitch Neri MD [address] [facility] [place] [address] Physician Hematology/Oncology 09/23/23 Deepika Garcia LSW Machine Bookkeeper 09/24/[address] [place] [address] [place] [address] Registered Dietitian Nutrition 10/22/23 Nia Snider, MALORIE Specialty Aerial Crop Duster Hematology/Oncology 04/22/24 Advertising Solicitor Relationship Specialty Start Date End Date Sunny Jenkins MD PCP - General Internal Medicine 08/22/23 Janet Dillard DO Referring Family Medicine 07/14/21 Mitch Neri MD [address] [facility] [place] [address] Physician Hematology/Oncology 09/23/23 Deepika Garcia LSW Machine Bookkeeper 09/24/[address] [place] [address] [place] [address] Registered Dietitian Nutrition 10/22/23 Nia Snider, MALORIE Specialty Aerial Crop Duster Hematology/Oncology 04/22/24 Advertising Solicitor Relationship Specialty Start Date End Date Sunny Jenkins MD PCP - General Internal Medicine 08/22/23 Janet Dillard DO Referring Family Medicine 07/14/21 Mitch Neri MD [address] [facility] [place] [address] Physician Hematology/Oncology 09/23/23 Deepika Garcia, CONVENTION SERVICES DIRECTOR Machine Bookkeeper 09/24/[address] [facility] [place] [address] Registered Dietitian Nutrition 10/22/23 Nia Snider, MALORIE Specialty Aerial Crop Duster Hematology/Oncology 04/22/24 Advertising Solicitor Relationship Specialty Start Date End Date Sunny Jenkins MD PCP - General Internal Medicine 08/22/23 Janet Dillard DO Referring Family Medicine 07/14/21 Mitch Neri MD [address] [facility] [place] [address] Physician Hematology/Oncology 09/23/23 Deepika Garcia, CONVENTION SERVICES DIRECTOR Machine Bookkeeper 09/24/[address] [facility] [address] Registered Dietitian Nutrition 10/22/23 Nia Snider, MALORIE Specialty Aerial Crop Duster Hematology/Oncology 04/22/24 Advertising Solicitor Relationship Specialty Start Date End Date Sunny Jenkins MD PCP - General Internal Medicine 08/22/23 Janet Dillard DO Referring Family Medicine 07/14/21 Mitch Neri MD [address] [facility] [place] [address] Physician Hematology/Oncology 09/23/23 Deepika Garcia, CONVENTION SERVICES DIRECTOR Machine Bookkeeper 09/24/[address] [facility] [place] [address] Registered Dietitian Nutrition 10/22/23 Nia Snider, RN Specialty Aerial Crop Duster Hematology/Oncology 04/22/24 Advertising Solicitor Relationship Specialty Start Date End Date Sunny Jenkins MD PCP - General Internal Medicine 08/22/23 Janet Dillard DO Referring Family Medicine 07/14/21 Mitch Neri MD [address] [facility] [place] [address] Physician Hematology/Oncology 09/23/23 Deepika Garcia LSW Machine Bookkeeper 09/24/[address] [facility] [place] [address] Registered Dietitian Nutrition 10/22/23 Nia Snider, RN Specialty Aerial Crop Duster Hematology/Oncology 04/22/24 Advertising Solicitor Relationship Specialty Start Date End Date Sunny Jenkins MD PCP - General Internal Medicine 08/22/23 Janet Dillard DO Referring Family Medicine 07/14/21 Mitch Neri MD [address] [facility] [place] [address] Physician Hematology/Oncology 09/23/23 Deepika Garcia, CONVENTION SERVICES DIRECTOR Machine Bookkeeper 09/24/[address] [facility] [place] [address] Registered Dietitian Nutrition 10/22/23 Nia Snider, RN Specialty Aerial Crop Duster Hematology/Oncology 04/22/24 Advertising Solicitor Relationship Specialty Start Date End Date Sunny Jenkins MD PCP - General Internal Medicine 08/22/23 Janet Dillard DO Referring Family Medicine 07/14/21 Mitch Neri MD [address] [place] [address] [place], [place] 1333870 Physician Hematology/Oncology 09/23/23 Deepika Garcia, CONVENTION SERVICES DIRECTOR Machine Bookkeeper 09/24/[address] [place] [address] [place] [address] Registered Dietitian Nutrition 10/22/23 Nia Snider RN Specialty Aerial Crop Duster Hematology/Oncology 04/22/24 Advertising Solicitor Relationship Specialty Start Date End Date Sunny Jenkins MD PCP - General Internal Medicine 08/22/23 Janet Dillard DO Referring Family Medicine 07/14/21 Mitch Neri MD [address] [place] [address] [place] [address] Physician Hematology/Oncology 09/23/23 Deepika Garcia LSW Machine Bookkeeper 09/24/[address] [place] [address] [place] [address] Registered Dietitian Nutrition 10/22/23 Nia Snider, RN Specialty Aerial Crop Duster Hematology/Oncology 04/22/24 Advertising Solicitor Relationship Specialty Start Date End Date Sunny Jenkins MD PCP - General Internal Medicine 08/22/23 Janet Dillard DO Referring Family Medicine 07/14/21 Mitch Neri MD [address] [place] [address] [place] [address] Physician Hematology/Oncology 09/23/23 Deepika Garcia, CONVENTION SERVICES DIRECTOR Machine Bookkeeper 09/24/[address] [facility] [place] [address] Registered Dietitian Nutrition 10/22/23 Nia Snider, RN Specialty Aerial Crop Duster Hematology/Oncology 04/22/24 Advertising Solicitor Relationship Specialty Start Date End Date Sunny Jenkins MD PCP - General Internal Medicine 08/22/23 Janet Dillard DO Referring Family Medicine 07/14/21 Mitch Neri MD [address] [place] [address] [place] [address] Physician Hematology/Oncology 09/23/23 Deepika Garcia, CONVENTION SERVICES DIRECTOR Machine Bookkeeper 09/24/[address] [facility] [place] [address] Registered Dietitian Nutrition 10/22/23 Nia Snider, MALORIE Specialty Aerial Crop Duster Hematology/Oncology 04/22/24 Advertising Solicitor Relationship Specialty Start Date End Date Sunny Jenkins MD PCP - General Internal Medicine 08/22/23 Janet Dillard DO Referring Family Medicine 07/14/21 Mitch Neri MD [address] [facility] [place] [address] Physician Hematology/Oncology 09/23/23 Deepika Garcia, CONVENTION SERVICES DIRECTOR Machine Bookkeeper 09/24/[address] [facility] [place] [address] Registered Dietitian Nutrition 10/22/23 Nia Snider, RN Specialty Aerial Crop Duster Hematology/Oncology 04/22/24 Advertising Solicitor Relationship Specialty Start Date End Date Sunny Jenkins MD PCP - General Internal Medicine 08/22/23 Janet Dillard DO Referring Family Medicine 07/14/21 Mitch Neri MD [facility] [place] [address] Physician Hematology/Oncology 09/23/23 Deepika Garcia LSW Machine Bookkeeper 09/24/[address] [facility] [place] [address] Registered Dietitian Nutrition 10/22/23 Nia Snider, MALORIE Specialty Aerial Crop Duster Hematology/Oncology 04/22/24 Advertising Solicitor Relationship Specialty Start Date End Date Sunny Jenkins MD PCP - General Internal Medicine 08/22/23 Janet Dillard DO Referring Family Medicine 07/14/21 Mitch Neri MD [address] [place] [address] Physician Hematology/Oncology 09/23/23 Deepika Garcia LSW Machine Bookkeeper 09/24/[address] [facility] [place] [address] Registered Dietitian Nutrition 10/22/23 Nia Snider, RN Specialty Aerial Crop Duster Hematology/Oncology 04/22/24 Advertising Solicitor Relationship Specialty Start Date End Date Sunny Jenkins MD PCP - General Internal Medicine 08/22/23 Janet Dillard DO Referring Family Medicine 07/14/21 Mitch Neri MD [address] [place] [address] [place] [address] Physician Hematology/Oncology 09/23/23 Deepika Garcia, CONVENTION SERVICES DIRECTOR Machine Bookkeeper 09/24/[address] [place] [address] [place] [address] Registered Dietitian Nutrition 10/22/23 Nia Snider, RN Specialty Aerial Crop Duster Hematology/Oncology 04/22/24 Advertising Solicitor Relationship Specialty Start Date End Date Sunny Jenkins MD [address] [place] [address] [facility] [place] [address] PCP - General Internal Medicine 04/02/23 Advertising Solicitor Relationship Specialty Start Date End Date Sunny Jenkins MD PCP - General Internal Medicine 08/22/23 Janet Dillard DO Referring Family Medicine 07/14/21 Mitch Neri MD [address] [facility] [place] [address] Physician Hematology/Oncology 09/23/23 Deepika Garcia, CONVENTION SERVICES DIRECTOR Machine Bookkeeper 09/24/[address] [facility] [facility] [address] [place], [place] [address] Registered Dietitian Nutrition 10/22/23 Nia Snider, MALORIE Specialty Aerial Crop Duster Hematology/Oncology 04/22/24 Advertising Solicitor Relationship Specialty Start Date End Date Sunny Jenkins MD PCP - General Internal Medicine 08/22/23 Janet Dillard DO Referring Family Medicine 07/14/21 Mitch Neri MD [address] [place], [place] [address]ry [facility] [place] [address] Physician Hematology/Oncology 09/23/23 Deepika Garcia LSW Machine Bookkeeper 09/24/[address] [place] [address] [place] [address] Registered Dietitian Nutrition 10/22/23 Nia Snider RN Specialty Aerial Crop Duster Hematology/Oncology 04/22/24 Advertising Solicitor Relationship Specialty Start Date End Date Sunny Jenkins MD PCP - General Internal Medicine 08/22/23 Janet Dillard DO Referring Family Medicine 07/14/21 Mitch Neri MD [address] [facility] [place] [address] Physician Hematology/Oncology 09/23/23 Deepika Garcia, CONVENTION SERVICES DIRECTOR Machine Bookkeeper 09/24/[address] [facility] [facility] [address] [place], [place] [address] Registered Dietitian Nutrition 10/22/23 Nia Snider, MALORIE Specialty Aerial Crop Duster Hematology/Oncology 04/22/24 Advertising Solicitor Relationship Specialty Start Date End Date Sunny Jenkins MD PCP - General Internal Medicine 08/22/23 Janet Dillard DO Referring Family Medicine 07/14/21 Mitch Neri MD [address] [place] [address] [place] [address] Physician Hematology/Oncology 09/23/23 Deepika Garcia LSW Machine Bookkeeper 09/24/[address] [place] [address] [place] [address] Registered Dietitian Nutrition 10/22/23 Nia Snider RN Specialty Aerial Crop Duster Hematology/Oncology 04/22/24 Reason for Visit (unrecogniz ed section and content) Reason Comments Event Zio patch Reason Comments Results Reason Comments Pain Reason Comments Established Patient Pain Reason Comments Orders Reason Comments New Pain Specialty Diagnoses / Procedures Referred By Contac t Referred To Contact Orthopedics Diagnoses Primary osteoarthritis of left hip Procedures CONSULT TO ORTHOPAEDICS OFFICE/OUTPATIENT NEW HIGH MDM 60-74 MINUTES Nayan Yan DO [facility] [address] [place] [address] Referral ID Status Reason Start Date Expiration Date V isits Requested Visits Authorized [id number] Closed PCP Requested Referral 03/23/2022 03/23/2023 1 [...] XTR STRUX R-T W/[place] [address] [place] [id number] [facility] [address] [place] [address] Referral ID Status Reason Start Date Expiration Date V isits Requested Visits Authorized [id number] Closed Auto-Generate d Referral 07/17/2023 08/15/2024 1 1 Reason Comments Consult Reason Comments Aerial Crop Duster - Other methotrexate Reason Comments Radiology NM Reason Comments Established Patient Reason Comments Care Coordination appointments Reason Comments Patient Question Reason Comments Care Coordination Clinical Information Request Reason Comments Care Coordination Treatment reschedule Reason Comments Breast Cancer OTV Reason Comments Nutrition Assessment Specialty Diagnoses / Procedures Referred By Contac t Referred To Contact Diagnoses Invasive lobular carcinoma of breast in female (HCC) Mitch Neri MD [address] [place] [address] [employer] [address] [place] [address] Referral ID Status Reason Start Date Expiration Date V isits Requested Visits Authorized [id number] Authorized 09/17/2023 12/16/2023 99 99 Reason Comments Disability Madi Reason Comments Post Op Reason Comments Lab Orders Reason Comments Care Coordination PE Reason Comments Breast Cancer Reason Comments Care Coordination Hospital update Reason Comments Care Coordination Hospital d/c follow up call Reason Comments Care Coordination Medication update Reason Comments Breast Cancer 1 week follow up Reason Comments First Time Treatment Education Reason Comments Care Coordination C1D1 treatment follo w up call Reason Comments Care Coordination Clinical update Reason Comments Breast Cancer Reason Comments Follow Up Reason Comments Research IRB [id number] Case11 z15 Informed Consent Reason Comments Referral [...] Expiration Date V isits Requested Visits Authorized [id number] Authorized 03/03/2024 06/01/2024 99 99 Reason Onset Date Comments SPP Oral Oncology/hematology - Treatment Referra l 04/22/2024 Verzenio 150mg Insurance Authorization 04/22/2024 RAMESH keen Reason Comments Patient Update Post Radiation Nurse Call Reason Comments New Patient Reason Comments Blood Draw (CVAD) Reason Comments medical records Reason Comments Oral Anti-cancer Agent Education Verzeni o Reason Comments Pre-Op Visit Reason Comments Pre-Op Exam Reason Comments Post-Op Visit Reason Comments Medication Dosage Adjustment Verzenio Reason Comments Post-op Cataract OS Reason Comments Post-op Cataract OD Reason Comments Radiology US Reason Comments Med Refill Reason Comments Post-op (Ophthalmology) Both Eyes Reason Comments Results Orders Reason Comments Thyroid Problem Reason Comments Established Patient Reason Onset Date Comments SPP Oral Oncology/hematology - Treatment Referra l 07/16/2024 Kisqali 400 mg Insurance Authorization 07/16/2024 RAMESH keen Reason Comments Refill Request Reason Comments Appointment Cancelled Reason Comments Oral Anti-cancer Agent Education Kisqali Reason Comments Results, Lab Reason Comments Aerial Crop Duster - Other Follow up oral chemo kisquali Reason Comments Patient Update Reason Onset Date Comments SPP Oral Oncology/hematology - Medication Refill 09/21/2024 Kisqali 400mg Reason Comments Established Patient Reason Comments Follow-up PE follow up Reason Comments Sinus Problem Fever Cough Sore Throat Reason Onset Date Comments Med Refill 11/01/2023 Reason Comments transistional care Reason Onset Date Comments HomeHealth 11/19/2023 Reason Comments open sores Reason Comments Results Reason Comments Annual Exam MAW Reason Onset Date Comments Referral 06/10/2024 Reason Onset Date Comments Med Refill 07/22/2024 Reason Comments New Patient Abscess of under lef t arm where she had lymph nodes taken out. Specialty Diagnoses / Procedures Referred By Contdanita t Referred To Contact General Surgery Diagnoses Cutaneous abscess of groin Procedures CONSULT TO GENERAL SURGERY OFFICE/OUTPATIENT NEW HIGH MDM 60 MINUTES Mitch Neri MD [address] [place] [address] Phone: tel: fax: Referral ID Status Reason Start Date Expiration Date V isits Requested Visits Authorized [id number] Closed PCP Requested Referral 01/07/2024 01/06/2025 1 1 Reason Comments Forms Reason Onset Date Comments SPP Oral Oncology/hematology - Medication Refill 10/26/2024 Kisqali Reason Onset Date Comments SPP Oral Oncology/hematology - Medication Refill 11/23/2024 Kisqali 400 mg Reason Onset Date Comments SPP Oral Oncology/hematology - Medication Refill 12/21/2024 Kisqali Reason Comments Orders Scheduling Reason Comments Established Patient Reason Onset Date Comments SPP Oral Oncology/hematology - Medication Refill 01/19/2025 Kisqali Reason Comments Established Patient Pain Reason Onset Date Comments SPP Oral Oncology/hematology - Medication Refill 02/15/2025 Kisqali Reason Comments Radiology XR Specialty Diagnoses / Procedures Referred By Contac t Referred To Contact XR IMAGING Diagnoses Pain in left hip Procedures XR HIP GENERAL 3V PELV/AP/LAT LEFT RADEX HIP UNILATERAL WITH PELVIS 2-3 VIEWS Micah Son, DO [address] [place] [address] Phone: tel: fax: [place] [phone] Referral ID Status Reason Start Date Expiration Date V isits Requested Visits Authorized [id number] Closed Auto-Generate d Referral 02/15/2025 03/17/2026 1 1 Reason Comments New Patient HH Specialty Diagnoses / Procedures Referred By Contac t Referred To Contact General Surgery Diagnoses Hiatal hernia Procedures CONSULT TO GENERAL SURGERY OFFICE/OUTPATIENT NEW HIGH MDM 60 MINUTES Mitch Neri MD [address] [place] [address] Phone: tel: fax: Referral ID Status Reason Start Date Expiration Date V isits Requested Visits Authorized [id number] Closed PCP Requested Referral 12/30/2024 12/30/2025 1 1 Reason Comments Orders Aerial Crop Duster - Other Reason Comments Consult Elevated serum creat inine Specialty Diagnoses / Procedures Referred By Contac t Referred To Contact Nephrology Diagnoses Elevated serum creatinine Procedures CONSULT TO NEPHROLOGY OFFICE/OUTPATIENT NEW HIGH MDM 60 MINUTES Mitch Neri MD [address] [place] [address] Phone: tel: fax: Referral ID Status Reason Start Date Expiration Date V isits Requested Visits Authorized [id number] Closed PCP Requested Referral 10/02/2024 10/02/2025 1 1 Reason Comments Reschedule Post-op Reason Onset Date Comments SPP Oral Oncology/hematology - Medication Refill 03/15/2025 Kisqali Reason Comments permision for fitting/DME Reason Comments sinus infection Reason Onset Date Comments SPP Oral Oncology/hematology - Medication Refill 04/12/2025 Kisqali Reason Onset Date Comments Sinusitis 04/12/2025 Reason Comments Spirometry Specialty Diagnoses / Procedures Referred By Binu t Referred To Contact [facility] Diagnoses Dyspnea, unspecified type Procedures SPIROMETRY WITH DILATOR IF OBSTRUCTED BRNCDILAT RSPSE SPMTRY PRE&POST-BRNCDILAT ADMBoom Pierre MD [address] [place] [address] Phone: tel: fax: [facility] [place] [address] [place] [address] Referral ID Status Reason Start Date Expiration Date V isits Requested Visits Authorized [id number] Closed Auto-Generate d Referral 04/14/2025 05/14/2026 1 1 Reason Comments Difficulty Breathing Goals (unrecognized section and content) Goals may [...] over 30 Minutes, ONCE, 1 dose, On Tu11/05/23 at 1100, Approximate Total Volume = 280 [...] Bag/Syringe/Bottle 12/03/2023 12:19 PM EDT 180 mg Continuous Active and Recently Administ ered Medications (unrecognized section and content) Medication Order 02/21/2025 02/22/2025 02/23/2025 NaCl 0.9% iv infusion 30 mL/hr, INTRAVENOUS, CONTINUOUS, Starting on Sat02/23/25 at 1030, Until Sat02/24/25 at 0302, Preprocedure 1030 (Due) PRN Medication Order 02/21/2025 02/22/2025 02/23/2025 acetaminophen 650 mg tab(s) (TYLENOL) 650 mg, ORAL, EVERY 4 HOURS NEEDED, Starting on Sat02/23/25 at 1029, Until Sat02/24/25 at 0302, breakthrough pain BUPivacaine (PF) 4.5 mL, lidocaine 1%-EPINEPHrine 1:100,000 4.5 mL, sodium bicarbonate 1 mL (CANCELED) X (OR/PROCEDURE) PRN, Starting on Sat02/23/25 at 0937, Until Sat02/23/25 at 1026, Intraprocedure 0949 (Given - Provid er: Andres Mann MD)1008 (Given - Provider: Andres Mann MD - Comment: left cheek) lidocaine (PF) 10 mg/mL (1 %) 1-2 mg injection (XYLOCAINE) 1-2 mg (0.1-0.2 mL), INTRADERMAL, NEEDED, 1 dose, Starting on Sat02/23/25 at 1029, Until Sat02/24/25 at 0302, See admin instructions, May use prior to starting IV, Preprocedure FOR RECORDS PERTAINING TO PATIENTS WHO ARE [...] BE BASED ON THE PRIMARY CLINICAL RECORDS. [facility]. provides no warranty or guarantee of the accuracy or completeness of information in this document.
--- NOTE | 2025-04-19 08:49 | ED.GENADUL1 ---
HPI HPI - General Adult General Chief complaint: Extremity Injury, Lower Stated complaint: hip pain Time Seen by Provider: 04/19/25 08:36 Source: patient Mode of arrival: Wheelchair Limitations: no limitations History of Present Illness HPI narrative: 69-year-old female presenting to the emergency department for concerns of left hip pain. Patient was walking in her kitchen when she heard a pop in her left hip. She stumbled, but did not fall or hit the ground. She denies any actual blunt injury to the area. She is able to walk since the injury, but is now ambulating with a limp. She denies any pain in the lower back, weakness in the extremity, or numbness/tingling in the extremity. She denies history of previous surgeries to the hip. She states she has significant osteoarthritis and requires a hip replacement. Related Data Home Medications ?Medication ?Instructions ?Recorded ?Confirmed cholecalciferol (vitamin D3) 125 125 mcg PO DAILY 01/25/23 10/19/24 mcg (5,000 unit) capsule metoprolol tartrate 50 mg tablet 50 mg PO BID 01/25/23 10/19/24 multivitamin 1 tab PO DAILY 01/25/23 10/19/24 potassium chloride 10 mEq 10 meq PO DAILY 01/25/23 10/19/24 capsule,extended release atorvastatin 40 mg tablet 40 mg PO .[facility] 11/16/23 10/19/24 losartan 50 mg tablet (Cozaar) 50 mg PO DAILY 11/16/23 10/19/24 letrozole 2.5 mg tablet 2.5 mg PO QDAY 10/19/24 10/19/24 naproxen 500 mg tablet 500 mg PO Q12H PRN pain 10/19/24 10/19/24 ribociclib 400 mg/day (200 mg x 2) 400 mg PO Q24H 10/19/24 10/19/24 tablets (Kisqali) Previous Rx's ?Medication ?Instructions ?Recorded furosemide 20 mg tablet 40 mg (2 x 20 mg) PO DAILY #0 tabs 11/08/23 spironolactone 25 mg tablet 25 mg PO DAILY #30 tabs 11/08/23 (Aldactone) oseltamivir 30 mg capsule 30 mg PO BID 5 days #10 caps 10/20/24 Allergies Allergy/AdvReac Type Severity Reaction Status Date / Time Sulfa (Sulfonamide Allergy Intermediate Hives Verified 04/19/25 08:31 Antibiotics) adhesive tape AdvReac Intermediate Rash Verified 04/19/25 08:31 fentanyl AdvReac Intermediate bradycardia Verified 04/19/25 08:31 Opioid HPI Opioid Management Most Recent Opioid Data: Last Pain Scale 10 Today, 08:47 Last MAR Pain Assessment Today, 08:47 Last ORT Total Score 0 10/19/24, 13:33 Last ORT Risk Category Low Risk 10/19/24, 13:33 Review of Systems ROS Status of ROS 10 or more systems reviewed and unremarkable except as noted in history and below [facility] Medical History Breast cancer, left breast ?C50.912 - Malignant neoplasm of unspecified site of left female breast (ICD-10) Pulmonary embolism and infarction ?I26.99 - Other pulmonary embolism without acute cor pulmonale (ICD-10) Pulmonary embolism on right ?I26.99 - Other pulmonary embolism without acute cor pulmonale (ICD-10) Lymph node cancer ?C77.9 - Secondary and unspecified malignant neoplasm of lymph node, unspecified (ICD-10) Numbness and tingling of both lower extremities ?R20.0 - Anesthesia of skin (ICD-10) ?R20.2 - Paresthesia of skin (ICD-10) 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 - Postmastectomy lymphedema syndrome (ICD-10) Rheumatoid arthritis ?M06.9 - Rheumatoid arthritis, unspecified (ICD-10) Spinal stenosis ?M48.00 - Spinal stenosis, site unspecified (ICD-10) Kidney stones ?N20.0 - Calculus of kidney (ICD-10) Heart murmur ?R01.1 - Cardiac murmur, unspecified (ICD-10) Scoliosis ?M41.9 - Scoliosis, unspecified (ICD-10) Hyperlipemia ?E78.5 - Hyperlipidemia, unspecified (ICD-10) Obesity ?E66.9 - Obesity, unspecified (ICD-10) Borderline diabetes ?R73.03 - Prediabetes (ICD-10) Breast cancer ?C50.919 - Malignant neoplasm of unspecified site of unspecified female breast (ICD-10) Edema ?R60.9 - Edema, unspecified (ICD-10) GERD (gastroesophageal reflux disease) ?K21.9 - Gastro-esophageal reflux disease without esophagitis (ICD-10) COPD (chronic obstructive pulmonary disease) ?J44.9 - Chronic obstructive pulmonary disease, unspecified (ICD-10) HTN (hypertension) ?I10 - Essential (primary) hypertension (ICD-10) Surgical History History of mastectomy ?Z90.10 - Acquired absence of unspecified breast and nipple (ICD-10) History of total left knee replacement ?Z96.652 - Presence of left artificial knee joint (ICD-10) History of total right knee replacement ?Z96.651 - Presence of right artificial knee joint (ICD-10) History of back surgery ?Z98.890 - Other specified postprocedural states (ICD-10) Family History Father Family history of CHF (congestive heart failure) Family history of cancer Family history of hypertension Sister Family history of stroke Mother Family history of cancer Family history of hypertension Social History Within the past year, how often did you have a drink containing alcohol: never Within the past year, how many standard drinks containing alcohol did you have on a typical day: 1 or 2 Within the past year, how often did you have six or more drinks on one occasion: never Total score: 0 Score interpretation: A score less than 3 is consistent with normal alcohol consumption. Smoking status: Never smoker Second hand tobacco smoke exposure: No Non-prescribed substance use: denies use Previous occupational history: none Known occupational exposures/hazards: No Highest level of school completed/degree received: high school graduate Do you want help with school or training: No Are you now , , , , never or living with a partner: don't know In a typical week, how many times do you talk on the telephone with family, friends, or neighbors: 3 or more times per week How often do you get together with friends or relatives: once per week How often do you attend scientologist or episcopalian services: never Do you belong to any clubs or organizations such as scientologist groups unions, fraternal or athletic groups, or school groups: no Total score: 1 Score interpretation: A score of less than or equal to 1 indicates the most socially isolated. Little interest or pleasure in doing things: not at all Feeling down, depressed, or hopeless: not at all Feel stressed/tense/nervous/anxious/difficulty sleeping: to some extent Life stressors: other Life stressor details: diagnosis with breast cancer Due to disability, difficulty making decisions: No Do you think of yourself as: straight/heterosexual Gender Identity: female Exam Narrative Exam Narrative: CONSTITUTIONAL: Patient appears uncomfortable and in pain, answering questions and following commands appropriately. SKIN: There is no overlying ecchymosis or skin changes over the left hip. EYES: Sclerae white. EARS, NOSE, THROAT: Moist oral mucosa. RESPIRATORY: Nonlabored respirations CARDIOVASCULAR: Normal rate and regular rhythm. 2+ DP pulses bilaterally GASTROINTESTINAL: Abdomen is nondistended. MUSCULOSKELETAL: There is tenderness to palpation throughout the left hip. There is limited range of motion with left hip flexion secondary to pain. She has good range of motion throughout the rest of the joints of the left lower extremity. Negative log roll. Leg lengths are equal. Full range of motion throughout the right lower extremity. No peripheral edema. No L-spine tenderness. NEUROLOGIC: Patient is awake and alert. Sensation intact to light touch in the bilateral lower extremities. 5/5 strength in the right lower extremity. She has good strength with left knee flexion/extension but limited strength with hip flexion secondary to pain. Constitutional Vital Signs, click to edit/add: Last Vital Signs Temp 97.9 F 04/19/25 08:31 Pulse 71 04/19/25 08:31 Resp 20 04/19/25 08:31 BP 138/56 04/19/25 08:31 Pulse Ox 97 04/19/25 08:31 Course Vital Signs Vital signs: Vital Signs Temperature 97.9 F 04/19/25 08:31 Pulse Rate 71 04/19/25 08:31 Respiratory Rate 20 04/19/25 08:31 Blood Pressure 138/56 04/19/25 08:31 Pulse Oximetry 97 04/19/25 08:31 Temperature 97.9 F 04/19/25 08:31 Pulse Rate 71 04/19/25 08:31 Respiratory Rate 20 04/19/25 08:31 Blood Pressure 138/56 04/19/25 08:31 Pulse Oximetry 97 04/19/25 08:31 Medical Decision Making [facility] Narrative Medical decision making narrative: Patient is a 69-year-old female presenting to the emergency department with acute onset left hip pain while walking through her kitchen today. Vital signs arrival are within normal limits. She is afebrile and hemodynamically stable. Examination as noted above. The patient had no falls or actual blunt injuries, making an acute fracture unlikely. However, differential diagnosis includes left hip fracture, musculoskeletal pain, osteoarthritis related pain, muscle sprain/strain, and less likely dislocation. Though she has limited range of motion of the left hip, this is most likely is related to pain. She is otherwise neurovascularly intact distal to the injury. Her pain was treated with [place] 10 mg. X-rays of the left hip were obtained. X-rays of the left hip independently reviewed/interpreted by myself and reviewed by radiology demonstrated severe joint space narrowing consistent with her history of osteoarthritis. No acute osseous abnormalities, fractures, or dislocations. On reevaluation, patient states her pain is modestly improved. I do believe she stable for discharge and outpatient follow-up with her orthopedic surgeon who she is well-established with. Return precautions were given including any new or concerning symptoms. Patient understands and agrees to the plan. FINAL IMPRESSION: #Acute left hip pain, #History of severe left hip osteoarthritis DISPOSITION: Discharged home CONDITION: Good Medical Records Medical records reviewed: Yes I reviewed the patient's medical records Imaging Data left hip xray: Attestation: I personally reviewed and interpreted this imaging study as follows: Radiologist's impression: ITS Impressions Hip X-Ray 04/19/25 08:41 IMPRESSION: INCREASING DEGENERATIVE CHANGES. NO ACUTE BONY INJURY. Impression dictated by: Pat Roberts M.D. 04/19/2025 9:18 AM Dictation Location: [employer] Electronically authenticated by: [id number] Y Date: 04/19/2025 09:18 Discharge Plan Discharge Chief Complaint: Extremity Injury, Lower Clinical Impression: Degenerative joint disease of left hip Qualifiers: Osteoarthritis type: unspecified Qualified Code(s): M16.12 - Unilateral primary osteoarthritis, left hip Patient Disposition: Home, Self-Care Time of Disposition Decision: 09:31 Condition: Good Mode of Transportation: Private Vehicle Prescriptions / Home Meds: No Action spironolactone [Aldactone] 25 mg tablet 25 mg PO DAILY Qty: 30 0RF furosemide 20 mg tablet 40 mg PO DAILY Qty: 0 0RF letrozole 2.5 mg tablet 2.5 mg PO QDAY Kisqali 400 mg/day (200 mg x 2) tablet 400 mg PO Q24H Rx Instructions: Pt takes for 3 weeks then is 1week off naproxen 500 mg tablet 500 mg PO Q12H PRN (Reason: pain) oseltamivir 30 mg Capsule 30 mg PO BID 5 Days Qty: 10 0RF metoprolol tartrate 50 mg tablet 50 mg PO BID multivitamin Tablet 1 tab PO DAILY cholecalciferol (vitamin D3) 125 mcg (5,000 unit) capsule 125 mcg PO DAILY potassium chloride 10 mEq capsule, extended release 10 meq PO DAILY losartan [Cozaar] 50 mg tablet 50 mg PO DAILY atorvastatin 40 mg tablet 40 mg PO .[facility] Print Language: Scottish Instructions: Osteoarthritis (ED) Referrals: Sunny Jenkins ND [Primary Care Provider] - 1 week
== END 2025-04-19 09:45 | disposition home or self-care (01) ==
PROVIDERS: Emergency Provider Student in an Organized Health Care Education/Training Program; PCP Student in an Organized Health Care Education/Training Program
DX: M16.12 Unilateral primary osteoarthritis, left hip (principal); Z90.10 Acquired absence of unspecified breast and nipple; Z96.653 Presence of artificial knee joint, bilateral
CPT/HCPCS: 73502; 99283

== ENCOUNTER 2025-05-04 10:05 | Emergency (ER) | payer MEDICARE, OTHER, SELFPAY ==
[2025-05-04 10:13] VITALS: BP 147/65; PULSE 88; TEMP 37.3; O2SAT 98; BMI 48.5
--- NOTE | 2025-05-04 10:18 | XR_ITS ---
The [address] [address] Patient Name: MINAL CAPUTO MRN: [id number] date: 1955 Sex: F Assigned Patient Location: ER Current Patient Location: ER Accession/Order Number: [id number] Exam Date: 05/04/2025 10:25 Report Date: 05/04/2025 10:50 At the request of: ROBINSON WHITEHEAD MD Procedure: XR knee RT 3V RIGHT KNEE - 3 views CLINICAL DATA: Right knee pain, without injury. Prior knee replacement. COMPARISON: None AP, lateral and internal oblique views were obtained. There is osteopenia. There is a knee prosthesis. There is also a screw through the tibial plateau from a medial to lateral approach. The hardware appears intact and in appropriate position. No acute fracture or dislocation is identified. There are potential loose bodies at the posterior joint on the lateral view. A trace amount of joint fluid is seen. There is no significant soft tissue swelling. XR/XR knee RT 3V IMPRESSION: SATISFACTORY APPEARANCE OF KNEE REPLACEMENT. NO ACUTE BONY FINDINGS. Impression dictated by: Pat Roberts M.D. 05/04/2025 10:50 AM Dictation Location: [place] [address] Electronically authenticated by: [id number] Y Date: 05/04/2025 10:50
--- NOTE | 2025-05-04 10:18 | ED.GENADUL1 ---
HPI HPI - General Adult General Chief complaint: Extremity Problem, Nontraumatic Stated complaint: lower extremity pain - rt knee Time Seen by Provider: 05/04/25 10:15 Source: patient Mode of arrival: Wheelchair Limitations: no limitations History of Present Illness HPI narrative: 69-year-old female presents for right knee pain. There was no injury and it started yesterday while she was sitting in a chair. She had a knee replacement about 6 years ago at the [facility]. Her ankle, calf, and hip do not hurt. Related Data Home Medications ?Medication ?Instructions ?Recorded ?Confirmed cholecalciferol (vitamin D3) 125 125 mcg PO DAILY 01/25/23 10/19/24 mcg (5,000 unit) capsule metoprolol tartrate 50 mg tablet 50 mg PO BID 01/25/23 10/19/24 multivitamin 1 tab PO DAILY 01/25/23 10/19/24 potassium chloride 10 mEq 10 meq PO DAILY 01/25/23 10/19/24 capsule,extended release atorvastatin 40 mg tablet 40 mg PO .QHS 11/16/23 10/19/24 losartan 50 mg tablet (Cozaar) 50 mg PO DAILY 11/16/23 10/19/24 letrozole 2.5 mg tablet 2.5 mg PO QDAY 10/19/24 10/19/24 naproxen 500 mg tablet 500 mg PO Q12H PRN pain 10/19/24 10/19/24 ribociclib 400 mg/day (200 mg x 2) 400 mg PO Q24H 10/19/24 10/19/24 tablets (Kisqali) Previous Rx's ?Medication ?Instructions ?Recorded furosemide 20 mg tablet 40 mg (2 x 20 mg) PO DAILY #0 tabs 11/08/23 spironolactone 25 mg tablet 25 mg PO DAILY #30 tabs 11/08/23 (Aldactone) oseltamivir 30 mg capsule 30 mg PO BID 5 days #10 caps 10/20/24 acetaminophen 300 mg-codeine 30 mg 1 tab PO Q6H PRN pain 5 days #20 05/04/25 tablet tabs Allergies Allergy/AdvReac Type Severity Reaction Status Date / Time Sulfa (Sulfonamide Allergy Intermediate Hives Verified 05/04/25 10:13 Antibiotics) adhesive tape AdvReac Intermediate Rash Verified 05/04/25 10:13 fentanyl AdvReac Intermediate bradycardia Verified 05/04/25 10:13 Opioid HPI Opioid Management Most Recent Opioid Data: Last Pain Scale 10 Today, 10:40 Last ED Pain Assessment Today, 10:40 Last MAR Pain Assessment Today, 10:33 Last ORT Total Score 0 10/19/24, 13:33 Last ORT Risk Category Low Risk 10/19/24, 13:33 Review of Systems ROS Narrative A ten point review of systems is negative except as noted above. PFSH PFSH Medical History Breast cancer, left breast ?C50.912 - Malignant neoplasm of unspecified site of left female breast (ICD-10) Pulmonary embolism and infarction ?I26.99 - Other pulmonary embolism without acute cor pulmonale (ICD-10) Pulmonary embolism on right ?I26.99 - Other pulmonary embolism without acute cor pulmonale (ICD-10) Lymph node cancer ?C77.9 - Secondary and unspecified malignant neoplasm of lymph node, unspecified (ICD-10) Numbness and tingling of both lower extremities ?R20.0 - Anesthesia of skin (ICD-10) ?R20.2 - Paresthesia of skin (ICD-10) 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 - Postmastectomy lymphedema syndrome (ICD-10) Rheumatoid arthritis ?M06.9 - Rheumatoid arthritis, unspecified (ICD-10) Spinal stenosis ?M48.00 - Spinal stenosis, site unspecified (ICD-10) Kidney stones ?N20.0 - Calculus of kidney (ICD-10) Heart murmur ?R01.1 - Cardiac murmur, unspecified (ICD-10) Scoliosis ?M41.9 - Scoliosis, unspecified (ICD-10) Hyperlipemia ?E78.5 - Hyperlipidemia, unspecified (ICD-10) Obesity ?E66.9 - Obesity, unspecified (ICD-10) Borderline diabetes ?R73.03 - Prediabetes (ICD-10) Breast cancer ?C50.919 - Malignant neoplasm of unspecified site of unspecified female breast (ICD-10) Edema ?R60.9 - Edema, unspecified (ICD-10) GERD (gastroesophageal reflux disease) ?K21.9 - Gastro-esophageal reflux disease without esophagitis (ICD-10) COPD (chronic obstructive pulmonary disease) ?J44.9 - Chronic obstructive pulmonary disease, unspecified (ICD-10) HTN (hypertension) ?I10 - Essential (primary) hypertension (ICD-10) Surgical History History of mastectomy ?Z90.10 - Acquired absence of unspecified breast and nipple (ICD-10) History of total left knee replacement ?Z96.652 - Presence of left artificial knee joint (ICD-10) History of total right knee replacement ?Z96.651 - Presence of right artificial knee joint (ICD-10) History of back surgery ?Z98.890 - Other specified postprocedural states (ICD-10) Family History Father Family history of CHF (congestive heart failure) Family history of cancer Family history of hypertension Sister Family history of stroke Mother Family history of cancer Family history of hypertension Social History Within the past year, how often did you have a drink containing alcohol: never Within the past year, how many standard drinks containing alcohol did you have on a typical day: 1 or 2 Within the past year, how often did you have six or more drinks on one occasion: never Total score: 0 Score interpretation: A score less than 3 is consistent with normal alcohol consumption. Smoking status: Never smoker Second hand tobacco smoke exposure: No Non-prescribed substance use: denies use Previous occupational history: none Known occupational exposures/hazards: No Highest level of school completed/degree received: high school graduate Do you want help with school or training: No Are you now , , , , never or living with a partner: don't know In a typical week, how many times do you talk on the telephone with family, friends, or neighbors: 3 or more times per week How often do you get together with friends or relatives: once per week How often do you attend worship or anglican services: never Do you belong to any clubs or organizations such as worship groups unions, fraternal or athletic groups, or school groups: no Total score: 1 Score interpretation: A score of less than or equal to 1 indicates the most socially isolated. Little interest or pleasure in doing things: not at all Feeling down, depressed, or hopeless: not at all Feel stressed/tense/nervous/anxious/difficulty sleeping: to some extent Life stressors: other Life stressor details: diagnosis with breast cancer Due to disability, difficulty making decisions: No Do you think of yourself as: straight/heterosexual Gender Identity: female Exam Narrative Exam Narrative: Nurses note and vital signs reviewed and patient is not hypoxic. General: The patient appears uncomfortable Skin: Warm, dry, no pallor noted. There is no rash noted. Head: Normocephalic, atraumatic Eye: Normal conjunctiva, no drainage Ears, Nose, Mouth, and Throat: oral mucosa is moist. Nares patent. Cardiovascular: Regular Rate and Rhythm Respiratory: Patient is in no distress, no accessory muscle use, lungs are clear to auscultation, no wheezing, rales or rhonchi GI: Soft and nontender Musculoskeletal: Her right leg is examined. The ankle and hip are nontender. No tenderness in the calf. The knee is not swollen. Old healed surgical scar present from her knee replacement. Neurological: A&O, normal speech Psychiatric: Cooperative Constitutional Vital Signs, click to edit/add: Last Vital Signs Temp 99.1 F 05/04/25 10:13 Pulse 88 05/04/25 10:13 Resp 20 05/04/25 10:13 BP 147/65 H 05/04/25 10:13 Pulse Ox 98 05/04/25 10:13 O2 Del Method Room Air 05/04/25 10:13 Course Vital Signs Vital signs: Vital Signs Temperature 99.1 F 05/04/25 10:13 Pulse Rate 88 05/04/25 10:13 Respiratory Rate 05/04/25 10:13 Blood Pressure 147/65 H 05/04/25 10:13 Pulse Oximetry 98 05/04/25 10:13 Oxygen Delivery Method Room Air 05/04/25 10:13 Temperature 99.1 F 05/04/25 10:13 Pulse Rate 88 05/04/25 10:13 Respiratory Rate 05/04/25 10:13 Blood Pressure 147/65 H 05/04/25 10:13 Pulse Oximetry 98 05/04/25 10:13 Oxygen Delivery Method Room Air 05/04/25 10:13 Medical Decision Making MDM Narrative Medical decision making narrative: X-ray shows no acute findings. She has an appointment with her orthopedist in 6 days and she will keep that appointment. She was prescribed Tylenol 3. Treatment diagnosis and follow-up were discussed with the patient. Differential Diagnosis Differential Diagnosis: Knee pain, hardware malfunction, fracture Imaging Data right knee: Radiologist's impression: ITS Impressions Knee X-Ray 05/04/25 10:18 IMPRESSION: SATISFACTORY APPEARANCE OF KNEE REPLACEMENT. NO ACUTE BONY FINDINGS. Impression dictated by: Pat Roberts M.D. 05/04/2025 10:50 AM Dictation Location: [employer] Electronically authenticated by: [id number] Y Date: 05/04/2025 10:50 Discharge Plan Discharge Chief Complaint: Extremity Problem, Nontraumatic Clinical Impression: Right knee pain Patient Disposition: Home, Self-Care Time of Disposition Decision: 10:59 Condition: Good Mode of Transportation: Private Vehicle Prescriptions / Home Meds: New acetaminophen-codeine 300-30 mg tablet 1 tab PO Q6H PRN (Reason: pain) 5 Days Qty: 20 0RF No Action spironolactone [Aldactone] 25 mg tablet 25 mg PO DAILY Qty: 30 0RF furosemide 20 mg tablet 40 mg PO DAILY Qty: 0 0RF letrozole 2.5 mg tablet 2.5 mg PO QDAY Kisqali 400 mg/day (200 mg x 2) tablet 400 mg PO Q24H Rx Instructions: Pt takes for 3 weeks then is 1week off naproxen 500 mg tablet 500 mg PO Q12H PRN (Reason: pain) oseltamivir 30 mg Capsule 30 mg PO BID 5 Days Qty: 10 0RF metoprolol tartrate 50 mg tablet 50 mg PO BID multivitamin Tablet 1 tab PO DAILY cholecalciferol (vitamin D3) 125 mcg (5,000 unit) capsule 125 mcg PO DAILY potassium chloride 10 mEq capsule, extended release 10 meq PO DAILY losartan [Cozaar] 50 mg tablet 50 mg PO DAILY atorvastatin 40 mg tablet 40 mg PO .QHS Print Language: Scottish Instructions: Knee Pain (ED) Additional Instructions: See your orthopedist at your appointment on Saturday. Referrals: Sunny Jenkins ND [Primary Care Provider] - 1 week
--- OUTSIDE RECORDS SUMMARY | 2025-05-04 10:26 | XMS_ITS | CCD ---
Author Organization [facility] Care Team Providers Care Rocket Scientist Name Role Phone DONTE TREVINO Referring Unavailable [...] Attending Provider Rita Amanda Primary Care Provider [phone] Gilma DO, Janet Flaquita Unavailable NO FAMILY, PHYSICIAN Primary Care Provider Unava ilable Gilma, DO Janet G Primary Care Provider DO Nikko Astorga Attending Provider [phone] Karen Parrish Unavailable GABBY GREY Consulting Unavailable [...] DONTE Patel Attending Unavailable REINECK, DR RICCO Quiros Consulting Unavailkathie SON, DONALDO Consulting Unavailable LAWRENCE LOPEZ Consulting Unavailable Janet Dillard DO Unavailable DO Janet Dillard Primary Care Provider DO Nikko Astorga Attending Provider BYRON MOORE Referring Unavailable GREGORY, ALISSAHAMID M Primary Care Unavailable GABBY COBIAN Attending Unavailable GREGORY, BHARATHID M Primary Care Unavailable MUNA ASIF Referring Unavailable Gregory Sunny HATHAWAY Primary Care Provider Yvonne Baumann RN Unavailable Mitch Neri MD Unavailable Cathy Templeton PA-C Unavailable [phone] Deepika Krueger Unavailable Unavailable Monie VELAZQUEZ, Nona Unavailable Sunny Jenkins MD Primary Care Provider Sunny Jenkins MD Primary Care Provider Yvonne Baumann RN Unavailable Cathy Templeton PA-C Unavailable Nia Snider RN Unavailable Unavailable Sunny Jenkins [...] GREGORY, MUHAMID M Primary Care Unavailable FITZGERALD, JOHANEN Referring Unavailable RAKESH PALMA Attending Unavailable GREGORY, [...] sources) fentaNYL Drug Allergy 04-01-20 18 Intolerance [facility] Sulfonamides (antibiotic) (4 sources) Sulfonamides (Antibiotic) Drug Allergy 03-08-20 07 Unknown [facility] (20 sources) fentaNYL; Translations: [FENTANYL] Drug Allergy 04-01-20 Other: See Comments, Intolerance [facility] Repository (1 source) Penicillins; Translations: [PENICILLINS] Propensity to adverse reactions to drug (disorder) 03-08-20 07 [facility] Repository (20 sources) Sulfonamides (Antibiotic); Translations: [SULFA (SULFONAMIDE ANTIBIOTICS)] Propensity to adverse reactions to drug (disorder) 03-08-20 07 Unknown, Rash [facility] Repository (1 source) OTHER; Translations: [OTHER] Propensity to adverse reactions (disorder) 05-06-20 07 [facility] Repository (20 sources) ADHESIVE BANDAGES [Other] Propensity to adverse reactions 05-06-20 07 [facility] Work Phone: (7 sources) Sulfacetamide Drug Allergy 01-06-20 [facility] (1 source) Adhesive bandage Drug allergy (disorder) 12-04-19 20 [facility] Repository (1 source) Sulfonamides (Antibiotic) Drug allergy (disorder) 12-04-19 20 [facility] Repository (20 sources) Adhesive agent; Translations: [ADHESIVE] Allergy to substance 02-29-20 Other (See Comments) [facility] (20 sources) Adhesive Tape-Silicones; Translations: [ADHESIVE TAPE-SILICONES] Drug Intolerance 07-29-20 [facility] Work Phone: (1 source) Sulfacetamide Drug Allergy 01-06-20 [facility] Repository Medications Current Medications Medication Drug Class(es) Dates Sig (Normalized) Sig (Original) [id number] 200 actuat albuterol 0.09 mg/actuat metered dose [...] Discontinued Start: 11-05-2023 take 2 tablets by [facility] twice daily, then take 1 tablet [...] Start: 11-05-2023 take 2 tablets by [facility] twice daily, then take 1 tablet by [...] for 23 days Take 1 tablet by [facility] two times a day. aspirin 81 [...] 1.5 mg/ml oral solution (2 sources) Uncompetitive D-rpduwz-D-aspartate Receptor Antagonist, Sigma-1 Agonist Start: 06-17-2022 [place] DM 7.5-7.5 MG/5ML 10 ml Orally every 6-8 hours as needed for 8 days May, Active Start: 04-25-2019 [place] DM 7.5- 7.5 MG/5ML 10 ml Orally [...] mg by mouth once daily. lactobacillus acidophilus [id number] unt oral tablet (20 sources) Lactobacillus ac [...] tablet (20 sources) Aromatase Inhibitor Start: 10-20-2024 End: 04-27-2025 take 1 tablet by mouth once daily letrozole (FEMARA) 2.5 mg tablet TAKE 1 TABLET BY MOUTH EVERY DAY 90 tablet 1 04/27/2025 Active Start: 09-28-2024 take 1 tablet by [...] sources) Angiotensin 2 Receptor Rajan Start: End: 4 take 1 tablet by mouth [...] Start: 07-22-2023 take 6 tablets by mo pah every week methotrexate 2.5 mg chemo tablet [...] & Supplies As directed Mar, Active nystatin [id number] unt/ml topical cream (10 sources) Polyene Antifungal Start: 04-05-2025 nystatin (MYCOSTATIN) [...] above: Take 1 tablet by eamon once daily for 14 days. perflutren lipid microspheres 1.3 mL in NaCl (PF) 0.9% 10 mL injection (DEFINITY) (16 sources) Start: 12-08-2021 End: 03-09-2023 perflutren lipid microspheres 1.3 mL in NaCl (PF) 0.9% 10 mL injection (DEFINITY) polyethylene glycol 3350 [id number] mg / potassium chloride 2970 mg / sodium bicarbonate 6740 mg / sodium chloride 5860 mg / sodium sulfate 66524 mg powder for oral solution (1 source) [...] 0 Active take 1 capsule by [facility] every twenty-four hours Potassium Chloride ER 10 [...] Discontinued Start: 12-03-2022 take 1 tablet by eamon every twelve hours prednisone 20 MG 1 tablet Orally BID for 5 days Nov, Active Start: 09-26-2018 End: 03-19-2022 predniSONE (DELTASONE) 10 mg tablet Comment on above: Take 3 tablets by mo uth once daily for 4 days, THEN 2 [...] Orally Once a day Active Vitamin D3 67190 UNIT (1 source) Vitamin D3 51126 UNIT 1 tablet Orally Active Completed/Discontinued Medications [...] hrs (includes Tylenol/Acetaminophen in other medications e.g. [place]). betamethasone 0.5 mg/ml / clotrimazole 10 mg/ml topical cream (20 sources) Azole Antifungal, Corticosteroid Start: 4 End: clotrimazole-betameth asone (LOTRISONE) cream Apply 1 [...] (11 sources) Cephalosporin Antibacterial Start: 4 End: 06-04-202 4 take 1 tablet by mouth every twelve [...] (13 sources) Cephalosporin Antibacterial Start: 5 End: 5 take 1 capsule by mouth three times [...] Start: 04-25-2019 take 1 capsule by [facility] every twelve hours Doxycycline Monohydrate 100 MG [...] above: Take 1 tablet by eamon every 12 hours. ergocalciferol, vitamin D2, (VITAMIN [...] vascular disease; Translations: [Atherosclerotic heart disease of [place] coronary artery without angina pectoris] 11-01-2023 Chronic [...] 12-23-2017 Chronic Other aftercare (1 source) Other manager long term care (current) drug therapy; Translations: [OTH LINE OUT MAN CURRENT DRUG THERAPY] Onset: 12-13-2022 Episodic Other [...] Chronic Other bone disease and musculoskeletal deformities (7 sources) Osteopenia; Translations: [Other specified disorders of [...] Test Name Value Interpretation Reference Range Facility [facility] 04-26-2025 [facility] Telephone (HEMTAIBAN) -- MINAL CAPUTO ([id number]) 1955 F Date Time Provider Department 04/26/25 ROSALIE LOPEZ [facility] During your visit today, we recorded the following information about you: Rosalie Lopez MD 04/26/2025 10:03 AM Signed Opened in error. Allergies As of Date: 04/26/2025 Noted Allergy Reaction FENTANYL 04/01/2018 5 - Intolerance Comments: Drop in RR and drop in pulse ox to 70% ADHESIVE TAPE-SILICONES 07/29/2023 2 - Rash SULFA (SULFONAMIDE ANTIBIOTICS) 03/08/2007 16 - Unknown Date Reviewed: 04/16/2025 Reviewed by: Sol Villafana MA - Fully Assessed Prescriptions as of 04/26/2025 - nystatin (MYCOSTATIN) cream Apply 1 application to affected area. - ribociclib (KISQALI) 400 mg/day (200 mg x 2) tab Take 2 tablets (400 mg) by mouth once daily for 21 days on, then 7 days off to complete a 28-day treatment cycle. Discard after 60 days from fill date. - letrozole (FEMARA) 2.5 mg tablet TAKE 1 TABLET BY MOUTH EVERY DAY - cholecalciferol (VITAMIN D-3) 5,000 unit tab Take 5,000 Units by mouth once daily. - spironolactone (ALDACTONE) 25 mg tablet Take 1 tablet by mouth every afternoon. - atorvastatin (LIPITOR) 20 mg tablet Take 1 tablet by mouth once daily. - losartan (COZAAR) 50 mg tablet Take 50 mg by mouth once daily. - esomeprazole magnesium (NEXIUM ORAL) Take 20 mg by mouth once daily. - furosemide (LASIX) 20 mg tablet Take 20 mg by mouth once daily. - MULTIVITAMIN ORAL Take 1 Dose by mouth once daily. - potassium chloride (K-TAB) 10 mEq tablet Take 10 mEq by mouth once daily. - METOPROLOL 100 MG TAB Take 50 mg by mouth once daily. 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]12/16/2007 Primary osteoarthritis of both knees [M17.0] 12/23/2017 Morbid obesity (HCC) [E66.01] 12/23/2017 Arthritis of both knees [M17.0] 02/24/2018 OA (osteoarthritis) of knee [M17.9] 03/31/2018 Acute post-operative pain [G89.18] 04/21/2018 S/P TKR (total knee replacement) using cement, *04/21/2018 H/O total knee replacement, bilateral [Z96.653] 05/19/2018 AF (paroxysmal atrial fibrillation) ([facility]) [I48.*12/08/2021 03/14/2022 Right arm weakness [R29.898] 03/14/2022 [...] 07/26/2023 Obesity, Class III, BMI >= 40 [E66.813] 07/29/2023 Stage 3a chronic kidney disease (HCC) [N18.31] 12/24/2023 Multiple thyroid nodules [E04.2] 05/18/2024 Pulmonary embolism (HCC) [I26.99] 11/05/2023 Status post cataract surgery, left [Z98.42] 06/09/2024 Combined forms of age-related cataract of right*06/09/2024 Status post cataract surgery, right [Z98.41] 06/18/2024 Osteopenia [M85.80] 04/13/2025 Encounter Status:Closed by ROSALIE LOPEZ on 04/26/25 Normal [facility] CNOVon 04-16-20[address] CNOV [address] [facility] HISTORY PHYSICALon HISTORY PHYSICAL Normal [facility] SPIROMETRY WITH DILATOR IF O BSTRUCTEDon 04-16-2025 FEF25% PRE (L/S) 4.14 L/S [facility] KGB07-72% LLN (L/S) 0.80 L/S [facility] XID86-74% PRE (L/S) 1.53 L/S [facility] AGK07-20% PREDICTED (L/S) 1.74 L/S [facility] FEF75% LLN (L/S) 0.15 L/S [facility] FEF75% PRE (L/S0 0.45 [facility] FEF75% PREDICTED (L/S) 0.41 L/S [facility] FEF75% ULN (L/S) 1.09 L/S [facility] FET PRE (S) 6.41 S [facility] FEV1 LLN (L) 1.33 L [facility] FEV1 PRE (L) 1.62 L [facility] FEV1 PREDICTED (L) 1.91 L [facility] FEV1 ULN (L) 2.45 L [facility] FEV1/FVC LLN (%) 66 % [facility] FEV1/FVC PRE (%) 79 % [facility] FEV1/FVC PREDICTED (%) 79 % [facility] FVC LLN (L) 1.71 L [facility] FVC PRE (L) 2.06 L [facility] FVC PREDICTED (L) 2.[address] [facility] FVC ULN (L) 3.15 L [facility] PEF LLN (L/S) 3.61 L[facility] PEF PRE (L/S) 4.16 L/S [facility] PEF ULN (L/S) 6.72 L/S [facility] [place] [facility] [address] [place], [place] [address] Test Date: 2025-04-16 Pat Name: MINAL CAPUTO Department: Room: Gender: Female Director Clinical Applications: : 1955 Requested By: Melonie Paz MD Order Number: [id number] Reading MD: Melonie Paz MD Interpretive Statements Current ATS/ERS acceptability and repeatability standards for spirometry met. Start of test and EOFE criteria met. //FP IMPRESSION: Spirometry is normal. Electronically Signed On 04-16-2025 09:54:21 EDT by Melonie Paz MD ID: [id number] Name: MINAL CAPUTO Race: White Ht: 61.02 in Wt: 260.59 lbs Age: 69 Gender: Female : 1955 Dx: Dyspnea and respiratory abnormalities_ Smoking Hx: Non-smoker Doctor: BOOM TIM Test Date: 04/16/2025 Site: [facility] Tech: Leonard Cornejo PRE-BRONCH POST-BRONCH Mookie LLN Pred ULN %Pred ZScore Mookie %Pred %Chg ZScore SPIROMETRY FVC 2.06 1.71 2.42 3.15 84 -0.84 FEV1 1.62 1.33 1.91 2.45 84 -0.84 FEV1/FVC 0.79 0.66 0.79 0.90 98 -0.12 FEFMax 4.16 3.61 5.17 6.72 80 -1.06 FEF50 2.52 1.24 2.85 4.46 88 -0.34 FIF50 2.48 FEF50/FIF50 1.01 90-100 FIVC 1.98 NXH64-74 1.53 0.80 1.74 3.07 87 -0.32 ExpiredTime 6.41 TimeToFEFMax 0.13 LESLEY 0.10 VolExtrap% 5 Comments: Current ATS/ERS acceptability and repeatability standards for spirometry met. Start of test and EOFE criteria met. //FP PULMONARY FUNCTION LAB [facility] SPIROMETRY WITH DILATOR IF OBSTRUCTED Normal [facility] CNOVSPon 04-13-2025 CNOVSP [address] [facility] CNOVSPon 04-01-2025 CNOVSP [address] [facility] US KIDNEY/BLADDERon 04-01-20 25 US KIDNEY/BLADDER * * *Final Report* * * DATE OF EXAM: Apr 01 2025 9:29AM VHU [id number] - US KIDNEY/BLADDER / PROCEDURE REASON: [...] Bladder: Normal sonographic appearance. IMPRESSION: No hydronephrosis. Sales Compensation Analyst: [facility] Transcribe Date/Time: Apr 04 2025 12:16P Dictated by : LINDA MARCIAL MD This examination was interpreted and the report reviewed and electronically signed by: LINDA MARCIAL MD on Apr 04 2025 12:18PM EST [id number] Normal [facility] CBC W Auto Differential pane l (Bld)on 03-30-2025 Basophils (Bld) [#/Vol] 0.04 10*3/uL [facility] Basophils/100 WBC (Bld) 1.1 % [facility] Differential cell count method Nom (Bld) Auto [facility] Eosinophils (Bld) [#/Vol] 0.05 10*3/uL [facility] Eosinophils/100 WBC (Bld) 1.4 % [facility] Erythrocyte distribution width (RBC) [Ratio] 14.6 % 11.5 - 15.0 % [facility] Hematocrit (Bld) [Volume fraction] 38.1 % 36.0 - 46.0 % [facility] Hemoglobin (Bld) [Mass/Vol] 12.8 g/dL 11.5 - 15.5 g/dL [facility] Immature granulocytes (Bld) [#/Vol] NINF [facility] Immature granulocytes/100 WBC (Bld) 0.3 % [facility] Interpretation and review of laboratory results Abnormal [facility] Lymphocytes (Bld) [#/Vol] 0.77 10*3/uL Low [facility] Lymphocytes/100 WBC (Bld) 21.2 % [facility] MCH (RBC) [Entitic mass] 34.9 pg High 26.0 - 34.0 pg [facility] MCHC (RBC) [Mass/Vol] 33.6 g/dL 30.5 - 36.0 g/dL [facility] MCV (RBC) [Entitic vol] 103.8 fL High 80.0 - 100.0 fL [facility] Monocytes (Bld) [#/Vol] 0.18 10*3/uL [facility] Monocytes/100 WBC (Bld) 4.9 % [facility] Neutrophils (Bld) [#/Vol] 2.59 10*3/uL [facility] Neutrophils/100 WBC (Bld) 71.1 % [facility] Nucleated RBC (Bld) [#/Vol] [facility] Nucleated RBC/100 WBC (Bld) [Ratio] 0 % /100 WBC [facility] Platelet mean volume (Bld) [Entitic vol] 9 fL 9.0 - 12.7 fL [facility] Platelets (Bld) [#/Vol] 346 10*3/uL [facility] RBC (Bld) [#/Vol] 3.67 10*6/uL Low 3.90 - 5.20 m/uL [facility] WBC (Bld) [#/Vol] 3.64 10*3/uL Low [facility] Basophils (Bld) [#/Vol] 0.04 10*3/uL Normal <0.[address] [facility] Comment on above: Order Comment: Speci men Type: BLOOD SPECIMENOrdering Facility: [facility] Address: [address] [place] [address] Performed By: #### 5 7021-8 ####[facility] LABCLIA [id number] [place] [address] Basophils/100 WBC (Bld) 1.1 % Normal [facility] Comment on above: Order Comment: Speci men Type: BLOOD SPECIMENOrdering Facility: [facility] Address: [address] [place] [address] Performed By: #### 5 7021-8 ####[facility] LABCLIA [id number] [place] [address] Differential cell count method Nom (Bld) Auto Normal [facility] Comment on above: Order Comment: Speci men Type: BLOOD SPECIMENOrdering Facility: [facility] Address: [address] [place] [address] Performed By: #### 5 7021-8 ####[facility] LABCLIA [id number] [place] [address] Eosinophils (Bld) [#/Vol] 0.05 10*3/uL Normal <0.[address] [facility] Comment on above: Order Comment: Speci men Type: BLOOD SPECIMENOrdering Facility: [facility] Address: [address] [place] [address] Performed By: #### 5 7021-8 ####[facility] LABCLIA [id number] [place] [address] Eosinophils/100 WBC (Bld) 1.4 % Normal [facility] Comment on above: Order Comment: Speci men Type: BLOOD SPECIMENOrdering Facility: [facility] Address: [address] [place] [address] Performed By: #### 5 7021-8 ####[facility] LABCLIA [id number] [place] [address] Erythrocyte distribution width (RBC) [Ratio] 14.6 % Normal 11.5-15.[address] [facility] Comment on above: Order Comment: Speci men Type: BLOOD SPECIMENOrdering Facility: [facility] Address: [address] [place] [address] Performed By: #### 5 7021-8 ####[facility] LABCLIA [id number] [place] [address] Hematocrit (Bld) [Volume fraction] 38.1 % Normal 36.0-46.[address] [facility] Comment on above: Order Comment: Speci men Type: BLOOD SPECIMENOrdering Facility: [facility] Address: [address] [place] [address] Performed By: #### 5 7021-8 ####[facility] LABCLIA [id number] [place] [address] Hemoglobin (Bld) [Mass/Vol] 12.8 g/dL Normal 11.5-15.[address] [facility] Comment on above: Order Comment: Speci men Type: BLOOD SPECIMENOrdering Facility: [facility] Address: [address] [place] [address] Performed By: #### 5 7021-8 ####[facility] LABCLIA [id number] [place] [address] Immature granulocytes (Bld) [#/Vol] 10*3/uL Normal <0.[address] [facility] Comment on above: Order Comment: Speci men Type: BLOOD SPECIMENOrdering Facility: [facility] Address: [address] [place] [address] Performed By: #### 5 7021-8 ####[facility] LABCLIA [id number] [place] [address] Immature granulocytes/100 WBC (Bld) 0.3 % Normal [facility] Comment on above: Order Comment: Speci men Type: BLOOD SPECIMENOrdering Facility: [facility] Address: [address] [place] [address] Performed By: #### 5 7021-8 ####[facility] LABCLIA [id number] [place] [address] Lymphocytes (Bld) [#/Vol] 0.77 10*3/uL Low 1.00-4.[address] [facility] Comment on above: Order Comment: Speci men Type: BLOOD SPECIMENOrdering Facility: [facility] Address: [address] [place] [address] Performed By: #### 5 7021-8 ####[facility] LABCLIA [id number] [place] [address] Lymphocytes/100 WBC (Bld) 21.2 % Normal [facility] Comment on above: Order Comment: Speci men Type: BLOOD SPECIMENOrdering Facility: [facility] Address: [address] [place] [address] Performed By: #### 5 7021-8 ####[facility] LABCLIA [id number] [place] [address] MCH (RBC) [Entitic mass] 34.9 pg High 26.0-34.[address] [facility] Comment on above: Order Comment: Speci men Type: BLOOD SPECIMENOrdering Facility: [facility] Address: [address] [place] [address] Performed By: #### 5 7021-8 ####[facility] LABCLIA [id number] [place] [address] MCHC (RBC) [Mass/Vol] 33.6 g/dL Normal 30.5-36.[address] [facility] Comment on above: Order Comment: Speci men Type: BLOOD SPECIMENOrdering Facility: [facility] Address: [address] [place] [address] Performed By: #### 5 7021-8 ####[facility] LABCLIA [id number] [place] [address] MCV (RBC) [Entitic vol] 103.8 fL High 80.0-100.[address] [facility] Comment on above: Order Comment: Speci men Type: BLOOD SPECIMENOrdering Facility: [facility] Address: [address] [place], [place] [id number] Performed By: #### 5 7021-8 ####[facility] LABCLIA [id number] [place] [address] Monocytes (Bld) [#/Vol] 0.18 10*3/uL Normal <0.[address] [facility] Comment on above: Order Comment: Speci men Type: BLOOD SPECIMENOrdering Facility: [facility] Address: [address] [place] [address] Performed By: #### 5 7021-8 ####[facility] LABCLIA [id number] [place] [address] Monocytes/100 WBC (Bld) 4.9 % Normal [facility] Comment on above: Order Comment: Speci men Type: BLOOD SPECIMENOrdering Facility: [facility] Address: [address] [place] [address] Performed By: #### 5 7021-8 ####[facility] LABCLIA [id number] [place] [address] Neutrophils (Bld) [#/Vol] 2.59 10*3/uL Normal 1.45-7.[address] [facility] Comment on above: Order Comment: Speci men Type: BLOOD SPECIMENOrdering Facility: [facility] Address: [address] [place] [address] Performed By: #### 5 7021-8 ####[facility] LABCLIA [id number] [place] [address] Neutrophils/100 WBC (Bld) 71.1 % Normal [facility] Comment on above: Order Comment: Speci men Type: BLOOD SPECIMENOrdering Facility: [facility] Address: [address] [place] [address] Performed By: #### 5 7021-8 ####[facility] LABCLIA [id number] [place] [address] Nucleated RBC (Bld) [#/Vol] 10*3/uL Normal <0.[address] [facility] Comment on above: Order Comment: Speci men Type: BLOOD SPECIMENOrdering Facility: [facility] Address: [address] [place] [address] Performed By: #### 5 7021-8 ####[facility] LABIA [id number] [place] [address] Nucleated RBC/100 WBC (Bld) [Ratio] 0.0 /[address] WBC [address] [facility] Comment on above: Order Comment: Speci men Type: BLOOD SPECIMENOrdering Facility: [facility] Address: [address] [place] [address] Performed By: #### 5 7021-8 ####[facility] LABIA [id number] [place] [address] Platelet mean volume (Bld) [Entitic vol] 9.0 fL Normal 9.0-12.[address] [facility] Comment on above: Order Comment: Speci men Type: BLOOD SPECIMENOrdering Facility: [facility] [facility] [place] Address: [address] [place] [address] Performed By: #### 5 7021-8 ####[facility] LABIA [id number] [place] [address] Platelets (Bld) [#/Vol] 346 10*3/uL Normal 150-[address] [facility] Comment on above: Order Comment: Speci men Type: BLOOD SPECIMENOrdering Facility: [facility] [place] Address: [address] [place] [address] Performed By: #### 5 7021-8 ####[facility] LABIA [id number] [place] [address] RBC (Bld) [#/Vol] 3.67 10*6/uL Low 3.90-5.20 [facility] Comment on above: Order Comment: Speci men Type: BLOOD SPECIMENOrdering Facility: [facility] [place] Address: [address] [place] [address] Performed By: #### 5 7021-8 ####[facility] LABCLIA [id number] [place] [address] WBC (Bld) [#/Vol] 3.64 10*3/uL Low 3.70-11.00 [facility] Comment on above: Order Comment: Speci men Type: BLOOD SPECIMENOrdering Facility: [facility] [place] Address: [address] [place] [address] Performed By: #### 5 7021-8 ####[facility] LABCLIA [id number] [place] [address] Comprehensive metabolic 2000 panelOrdered By: Jennifer Rosa on 03-30-2025 Albumin [Mass/Vol] 4 g/dL 3.9 - 4.9 g/dL [facility] ALP [Catalytic activity/Vol] 105 U/L 34 - 123 U/L [facility] ALT [Catalytic activity/Vol] 19 U/L 7 - 38 U/L [facility] Anion gap [Moles/Vol] 11 mmol/L 8 - 15 mmol/L [facility] AST [Catalytic activity/Vol] 15 U/L 13 - 35 U/L [facility] Bilirubin [Mass/Vol] 0.6 mg/dL 0.2 - 1 .3 mg/dL [facility] Calcium [Mass/Vol] 9.5 mg/dL 8.5 - 10. 2 mg/dL [facility] Chloride [Moles/Vol] 101 mmol/L 98 - 10 7 mmol/L [facility] CO2 [Moles/Vol] 25 mmol/L 22 - 30 mmol/L [facility] Creatinine [Mass/Vol] 1.48 mg/dL High 0.58 - 0.96 mg/dL [facility] GFR/1.73 sq M.predicted among non-blacks MDRD (S/P/Bld) [Vol rate/Area] 38 mL/min/{1.73_m2} Low - PINF [facility] Comment on above: Estimated Glomerular Filtration [...] 140 mg/dL High 74 - 99 mg/dL [facility] Comment on above: The [place] Diabete s Association (ADA) provides guidance for [...] Standards of Medical Care in Diabetes 2016, [place] Diabetes Association. Diabetes Care. 2016.39(Suppl 1). Interpretation and review of laboratory results Abnormal [facility] Potassium [Moles/Vol] 4.5 mmol/L 3.7 - 5.1 mmol/L [facility] Protein [Mass/Vol] 6.9 g/dL 6.3 - 8.0 g/dL [facility] Sodium [Moles/Vol] 137 mmol/L 136 - 144 mmol/L [facility] Urea nitrogen [Mass/Vol] 18 mg/dL 7 - 21 mg/dL [facility] Comprehensive metabolic 2000 panelon 03-30-2025 Albumin [Mass/Vol] 4.0 g/dL Normal 3.9-4.9 [facility] Comment on above: Order Comment: Speci men Type: BLOOD SPECIMENOrdering Facility: [facility] [place] Address: [address] [place] [address] Performed By: #### 2 4323-8 ####[facility] LABCLIA [id number] [place] [address] ALP [Catalytic activity/Vol] 105 U/L Normal 34-[address] [facility] Comment on above: Order Comment: Speci men Type: BLOOD SPECIMENOrdering Facility: [facility] [place] Address: [address] [place] [address] Performed By: #### 2 4323-8 ####[facility] LABCLIA [id number] [place] [address] ALT [Catalytic activity/Vol] 19 U/L Normal 7-[address] [facility] Comment on above: Order Comment: Speci men Type: BLOOD SPECIMENOrdering Facility: [facility] [place] Address: [address] [place], [place] [address] Performed By: #### 2 4323-8 ####[facility] LABCLIA [id number] [place] [address] Anion gap [Moles/Vol] 11 mmol/L Normal 8-[address] [facility] Comment on above: Order Comment: Speci men Type: BLOOD SPECIMENOrdering Facility: [facility] [place] Address: [address] [place] [address] Performed By: #### 2 4323-8 ####[facility] LABCLIA [id number] [place] [address] AST [Catalytic activity/Vol] 15 U/L Normal 13-[address] [facility] Comment on above: Order Comment: Speci men Type: BLOOD SPECIMENOrdering Facility: [facility] [place] Address: [address] [place] [address] Performed By: #### 2 4323-8 ####[facility] LABCLIA [id number] [place] [address] Bilirubin [Mass/Vol] 0.6 mg/dL Normal 0.2-1.3 [facility] Comment on above: Order Comment: Speci men Type: BLOOD SPECIMENOrdering Facility: [facility] [place] Address: [address] [place] [address] Performed By: #### 2 4323-8 ####[facility] LABCLIA [id number] [place] [address] Calcium [Mass/Vol] 9.5 mg/dL Normal 8.5-10.2 [facility] Comment on above: Order Comment: Speci men Type: BLOOD SPECIMENOrdering Facility: [facility] [place] Address: [address] [place] [address] Performed By: #### 2 4323-8 ####[facility] LABCLIA [id number] [place] [address] Chloride [Moles/Vol] 101 mmol/L Normal 98-107 [facility] Comment on above: Order Comment: Speci men Type: BLOOD SPECIMENOrdering Facility: [facility] [place] Address: [address] [place] [address] Performed By: #### 2 4323-8 ####[facility] LABCLIA [id number] [place] [address] CO2 [Moles/Vol] 25 mmol/L Normal 22-[address] [facility] Comment on above: Order Comment: Speci men Type: BLOOD SPECIMENOrdering Facility: [facility] [place] Address: [address] [place] [address] Performed By: #### 2 4323-8 ####[facility] LABCLIA [id number] [place] [address] Creatinine [Mass/Vol] 1.48 mg/dL High 0.58-0.[address] [facility] Comment on above: Order Comment: Speci men Type: BLOOD SPECIMENOrdering Facility: [facility] [place] Address: [address] [place] [address] Performed By: #### 2 4323-8 ####[facility] LABCLIA [id number] [place] [address] eGFRcr SerPlBld CKD-EPI 2020 38 mL/min/1.73m??? Low >=[address] [facility] Comment on above: Order Comment: Speci men Type: BLOOD SPECIMENOrdering Facility: [facility] [place] Address: [address] [place] [address] Result Comment: Cristal mated Glomerular Filtration Rate [...] actual GFR. Performed By: #### 2 4323-8 ####[facility] LABCLIA [id number] [place] [address] Glucose [Mass/Vol] 140 mg/dL High 74-99 [facility] Comment on above: Order Comment: Alison mccain Type: BLOOD SPECIMENOrdering Facility: [facility] [place] Address: [address] [place] [address] Result Comment: The [place] Diabetes Association (ADA) provides guidance for cutoff [...] Standards of Medical Care in Diabetes 2016, [place] Diabetes Association. Diabetes Care. 2016.39(Suppl 1). Performed By: #### 2 4323-8 ####[facility] LABCLIA [id number] [place] [address] Potassium [Moles/Vol] 4.5 mmol/L Normal 3.7-5.[address] [facility] Comment on above: Order Comment: Alison mccain Type: BLOOD SPECIMENOrdering Facility: [facility] [place] Address: [address] [place] [address] Performed By: #### 2 4323-8 ####[facility] LABCLIA [id number] [place] [address] Protein [Mass/Vol] 6.9 g/dL Normal 6.3-8.0 [facility] Comment on above: Order Comment: Alison mccain Type: BLOOD SPECIMENOrdering Facility: [facility] [place] Address: [address] [place] [address] Performed By: #### 2 4323-8 ####[facility] LABCLIA [id number] [place] [address] Sodium [Moles/Vol] 137 mmol/L Normal 136-144 [facility] Comment on above: Order Comment: Speci men Type: BLOOD SPECIMENOrdering Facility: [facility] [place] Address: [address] [place] [address] Performed By: #### 2 4323-8 ####[facility] LABCLIA [id number] [place] [address] Urea nitrogen [Mass/Vol] 18 mg/dL Normal 7-[address] [facility] Comment on above: Order Comment: Speci men Type: BLOOD SPECIMENOrdering Facility: [facility] [place] Address: [address] [place] [address] Performed By: #### 2 4323-8 ####[facility] LABIA [id number] [place] [address] DBT Breast - bilateral scree ningon 03-30-2025 [facility] Radiology Study observation (narrative) [facility] CNPNon 03-26-20[address] CNPN [address] [facility] HISTORY PHYSICALon HISTORY PHYSICAL Normal [facility] BI MAMMOGRAM SCREENING TOMOS YNTHESIS RIGHTon [...] IS VERY IMPORTANT TO YOUR HEALTH. THE [place] GUIDELINES RECOMMEND THAT WOMEN 40 YEARS OF AGE AND OLDER SHOULD HAVE A MAMMOGRAM EVERY YEAR. A REMINDER LETTER WILL BE SENT AT THE APPROPRIATE TIME. ELECTRONICALLY SIGNED BY: Yusuf Staton M.D. Normal Not Available Comment on above: Order Comment: Maste ctomy CNOVon 03-05-[address] [facility] CNPNon 03-04-2025 CNPN [address] [facility] OPERATIVE NOon 02-23-2025 OPERATIVE NO HNO ID: [id number] Author: Andres MANN MD Service: Plastic Surgery Author Type: Physician Type: Operative Report Filed: 02/23/2025 10:13 Note Text: Minal Andres Caputo [id number] February 23, 2025 Time: 1015 Place: [facility] Preop Diagnosis: Left face inclusion cyst Postop diagnosis:same Procedure: Excision of left face inclusion cyst, 2cm excised; complex repair 3.5 cm (cpt 45761) Anesthesia: Local Surgeon: Dharmesh Mann MD No qualified residents to assist with the procedure Mine Motor Engineer: NA Brief History: The patient was seen In [...] the entire procedure. Signed: Dharmesh Mann MD [facility] Pathology biopsy report Inder (Tiss)on 02-23-2025 AP DISCLAIMER [facility] Comment on above: Order Comment: Speci men Type: TISSUE SPECIMEN Ordering Facility: [facility] [place] Address: [address] [place] [address] Result Comment: Albert mccray Developed Test (LDT) Disclaimer: Performance characteristics of immunohistochemical, immunofluorescent, and chromogenic in-situ hybridization tests have been determined by the performing laboratory within [facility] Pathology and Laboratory Medicine Department ([facility], [facility], [facility], [facility], [facility], [facility], or [facility]) in a manner consistent with CLIA [...] appropriately. Performed By: #### 6 6121-5 #### [facility] CLIA [id number] [address] [place] [address] [place] [address] [place] CASE REPORT [facility] Comment on above: Order Comment: Speci men Type: TISSUE SPECIMEN Ordering Facility: [facility] [place] Address: [address] [place] [address] Result Comment: Surg ical Pathology Report Case: [id number] Authorizing Provider: Andres Mann MD Collected: 02/23/2025 10:06 AM Ordering Location: [facility] Surgery Received: 02/23/2025 10:10 AM Pathologist: Rosa Whyte MD Specimen: Cyst, Skin, Excision, cyst - left cheek Performed By: #### 6 6121-5 #### [facility] CLIA [id number] [address] [place] [address] [place] CLINICAL HISTORY Normal [facility] pital Comment on above: Order Comment: Speci men Type: TISSUE SPECIMEN Ordering Facility: [facility] [place] Address: [address] [place] [address] Result Comment: Pre- op diagnosis: Inclusion cyst [L72.0] Performed By: #### 6 6121-5 #### [facility] CLIA [id number] [address] [place] [address] FINAL DIAGNOSIS Normal [facility] ital Comment on above: Order Comment: Speci men Type: TISSUE SPECIMEN Ordering Facility: [facility] [place] Address: [address] [place] [address] Result Comment: A. S kin, left cheek, excision: - Epidermal inclusion cyst. MP/navarro 02/25/2025 at 2321 EDT Performed By: #### 6 6121-5 #### [facility] CLIA [id number] [address] [place] [address] OF [place] FINAL PERFORMING LAB Normal [facility] Comment on above: Order Comment: Speci men Type: TISSUE SPECIMEN Ordering Facility: [facility] [place] Address: [address] [place] [address] Result Comment: Diag nostic interpretation performed at: [facility], [address] [place] [address] CLIA# [id number] Chief Security Officer: Amor Eisenberg MD Performed By: #### 6 6121-5 #### [facility] CLIA [id number] [address] [place] [address] STATES [facility] GROSS DESCRIPTION Normal [facility] Comment on above: Order Comment: Speci men Type: TISSUE SPECIMEN Ordering Facility: [facility] [place] Address: [address] [place] [address] Result Comment: Jairo molina, Skin, Excision Received in formalin is an unoriented elliptical segment of skin and subcutaneous tissue measuring 2.1 x 2.0 x 1.5 cm. The skin surface is grossly unremarkable. The specimen does resemble a ruptured cyst. A agricultural sales representative section is submitted in one cassette. BC February 23, 2025 1:31 PM Gross examination performed at [facility], [address] [place] [address] Performed By: #### 6 6121-5 #### [facility] CLIA [id number] [address] [place] [address] [place] ALBUMIN/CREATININE RATIO, UR INEon 02-19-2025 Albumin DL <= 20 mg/L (U) [Mass/Vol] mg/dL Normal [facility] Comment on above: Order Comment: Speci men Type: URINE SPECIMENOrdering Facility: [facility] [place] Address: [address] [place] [address] Performed By: #### U ACR, 2890-2 ####[facility] LABCLIA [id number] [place] [address] [place] Albumin/Creatinine (U) [Mass ratio] <23 Normal <[address] [facility] Comment on above: Order Comment: Speci men Type: URINE SPECIMENOrdering Facility: [facility] [place] Address: [address] [place] [address] Result Comment: Adul t Male and Female Nephrotic Criteria:<30 mg/g is considered normal to mildly weujfaghr47-265 mg/g is considered moderately increased>300 mg/g is considered severely increasedKDIGO. (2013). KDIGO 2012 Clinical Practice Guideline for the Evaluation and Management of Chronic Kidney Disease. Official Journal of the International Society of Nephrology, 3(1), 1-150. Performed By: #### U ACR, 2890-2 ####[facility] LABCLIA [id number] [address] [address] [place] CNOVon 02-19-2025 CNOV [address] [facility] Prot/Creat Uron 02-19-2025 Creatinine (U) [Mass/Vol] 52.7 mg/dL Normal 20.0-300.[address] [facility] Comment on above: Order Comment: Speci men Type: URINE SPECIMENOrdering Facility: [facility] [place] Address: [address] [place] [address] Performed By: #### U ACR, 2889-2 ####[facility] LABCLIA [id number] [address] STATES OF [facility] Protein/Creatinine (U) [Mass ratio] 0.15 mg/mg High <0.[address] [facility] Comment on above: Order Comment: Speci men Type: URINE SPECIMENOrdering Facility: [facility] [place] Address: [address] [place] [address] Result Comment: Adul t Proteinuria Categories:<0.15 mg/mg is considered normal to mildly increased0.15 - 0.50 mg/mg is considered moderately increased>0.50 mg/mg is considered severely increasedKDIGO. (2013). KDIGO 2012 Clinical Practice Guideline for the Evaluation and Management of Chronic Kidney Disease. Official Journal of the International Society of Nephrology, 3(1), 1-150. Performed By: #### U ACR, 2890-2 ####[facility] LABCLIA [id number] [place] [id number] [place] Protein/Creatinine (U) [Mass ratio]on 02-19-2025 Protein (U) [Mass/Vol] 8 mg/dL Normal 0-[address] [facility] Comment on above: Order Comment: Speci men Type: URINE SPECIMENOrdering Facility: [facility] [place] Address: [address] [place] [address] Performed By: #### U ACR, 2890-2 ####[facility] LABCLIA [id number] [place] [address] [place] UA DIP, URINE (POC)on 2024 BILIRUBIN UA (POCT) Negative Negative [facility] CLARITY UA (POCT) Clear [facility] COLOR UA (POCT) Yellow [facility] GLUCOSE UA (POCT) Negative Negative mg/dL [facility] Hemoglobin Ql (U) Negative Negative [facility] Interpretation and review of laboratory results Abnormal [facility] KETONE UA (POCT) Negative Negative mg/dL [facility] LEUKOCYTES UA (POCT) Small Abnormal Negative [facility] NITRITE UA (POCT) Negative Negative [facility] PH UA (POCT) 5.5 4.5 - 8.0 [facility] Protein Ql (U) Negative Negative mg/dL [facility] SPECIFIC GRAVITY UA (POCT) 1.015 1.005 - 1.030 [facility] UROBILINOGEN UA (POCT) 0.2 Normal E.U./dL [facility] Location:[facility], [address] [facility] [place], [place], [address] [place] [address] POINT OF CARE [facility] CNPNon 02-17-2025 CNPN [address] [facility] CNOVon 02-15-2025 CNOV [address] [facility] CNOV Normal [facility] CNOV Normal [facility] Large Joint Arthro/Inj: L hi p jointon [...] these instructions. Informed Consent Consent Obtained: Verbal [place] Protocol A moment to CARE was completed. [...] the bedside nurse for hospitalized patients) applicable. [facility] US HIP-INJECTION LT (POC) OR I USE ONLYon 02-15-2025 [facility] XR HIP 3V PELV+ AP/LAT LTon 02-15-2025 XR HIP 3V PELV+ AP/LAT LT Normal [facility] XR Pelvis and Hip - left AP [...] spine, incompletely assessed. DIVISION OF RADIOLOGY Provider, [facility] - 02/15/2025 * * *Final Report* [...] Severe left hip osteoarthritis, progressed since 2021. Sales Compensation Analyst: PSCB Transcribe Date/Time: Feb 15 2025 1:05P Dictated by : ABUNDIO VILLA MD This examination was interpreted and the report reviewed and electronically signed by: ABUNDIO VILLA MD on Feb 15 2025 1:07PM EST [facility] Radiology Study observation (narrative) [facility] XR Pelvis and Hip - left AP and Lateral frogOrdered By: Ccf Provider on 02-15-2025 [facility] CNOVSPon 12-30-2024 CNOVSP [address] [facility] CBC W Auto Differential pane l (Bld)on 12-24-2024 Basophils (Bld) [#/Vol] 0.05 10*3/uL [facility] Basophils/100 WBC (Bld) 2.2 % [facility] Differential cell count method Nom (Bld) Auto [facility] Eosinophils (Bld) [#/Vol] 0.17 10*3/uL [facility] Eosinophils/100 WBC (Bld) 7.4 % [facility] Erythrocyte distribution width (RBC) [Ratio] 18.3 % High 11.5 - 15.0 % [facility] Hematocrit (Bld) [Volume fraction] 33.5 % Low 36.0 - 46.0 % [facility] Hemoglobin (Bld) [Mass/Vol] 11.4 g/dL Low 11.5 - 15.5 g/dL [facility] Immature granulocytes (Bld) [#/Vol] [facility] Immature granulocytes/100 WBC (Bld) 0 % [facility] Interpretation and review of laboratory results Abnormal [facility] Lymphocytes (Bld) [#/Vol] 0.51 10*3/uL Low [facility] Lymphocytes/100 WBC (Bld) 22.1 % [facility] MCH (RBC) [Entitic mass] 34.5 pg High 26.0 - 34.0 pg [facility] MCHC (RBC) [Mass/Vol] 34 g/dL 30.5 - 36.0 g/dL [facility] MCV (RBC) [Entitic vol] 101.5 fL High 80.0 - 100.0 fL [facility] Monocytes (Bld) [#/Vol] 0.23 10*3/uL NINF [facility] Monocytes/100 WBC (Bld) 10 % [facility] Neutrophils (Bld) [#/Vol] 1.35 10*3/uL Low [facility] Neutrophils/100 WBC (Bld) 58.3 % [facility] Nucleated RBC (Bld) [#/Vol] [facility] Nucleated RBC/100 WBC (Bld) [Ratio] 0 % /100 WBC [facility] Platelet mean volume (Bld) [Entitic vol] 9.1 fL 9.0 - 12.7 fL [facility] Platelets (Bld) [#/Vol] 304 10*3/uL [facility] RBC (Bld) [#/Vol] 3.3 10*6/uL Low 3.90 - 5.20 m/uL [facility] WBC (Bld) [#/Vol] 2.31 10*3/uL Low [facility] Basophils (Bld) [#/Vol] 0.05 10*3/uL Normal <0.[address] [facility] Comment on above: Order Comment: Speci men Type: BLOOD SPECIMENOrdering Facility: [facility] [place] Address: [address] [place] [address] Performed By: #### 5 7021-8 ####[facility] LABCLIA [id number] [place] [address] Basophils/100 WBC (Bld) 2.2 % Normal [facility] Comment on above: Order Comment: Speci men Type: BLOOD SPECIMENOrdering Facility: [facility] [place] Address: [address] [place] [address] Performed By: #### 5 7021-8 ####[facility] [id number] [place] [address] Differential cell count method Nom (Bld) Auto Normal [facility] Comment on above: Order Comment: Speci men Type: BLOOD SPECIMENOrdering Facility: [facility] [place] Address: [address] [place] [address] Performed By: #### 5 7021-8 ####[facility] [id number] [place] [address] Eosinophils (Bld) [#/Vol] 0.17 10*3/uL Normal <0.[address] [facility] Comment on above: Order Comment: Speci men Type: BLOOD SPECIMENOrdering Facility: [facility] [facility] [place] Address: [address] [place] [address] Performed By: #### 5 7021-8 ####[facility] LABCLIA [id number] [place] [address] Eosinophils/100 WBC (Bld) 7.4 % Normal [facility] Comment on above: Order Comment: Speci men Type: BLOOD SPECIMENOrdering Facility: [facility] [place] Address: [address] [place] [address] Performed By: #### 5 7021-8 ####[facility] LABCLIA [id number] [place] [address] Erythrocyte distribution width (RBC) [Ratio] 18.3 % High 11.5-15.[address] [facility] Comment on above: Order Comment: Speci men Type: BLOOD SPECIMENOrdering Facility: [facility] [place] Address: [address] [place] [address] Performed By: #### 5 7021-8 ####[facility] LABIA [id number] [place] [address] Hematocrit (Bld) [Volume fraction] 33.5 % Low 36.0-46.[address] [facility] Comment on above: Order Comment: Speci men Type: BLOOD SPECIMENOrdering Facility: [facility] [place] Address: [address] [place] [address] Performed By: #### 5 7021-8 ####[facility] LABCLIA [id number] [place] [address] Hemoglobin (Bld) [Mass/Vol] 11.4 g/dL Low 11.5-15.[address] [facility] Comment on above: Order Comment: Speci men Type: BLOOD SPECIMENOrdering Facility: [facility] [place] Address: [address] [place] [address] Performed By: #### 5 7021-8 ####[facility] LABCLIA [id number] [place] [address] Immature granulocytes (Bld) [#/Vol] 10*3/uL Normal <0.[address] [facility] Comment on above: Order Comment: Speci men Type: BLOOD SPECIMENOrdering Facility: [facility] [place] Address: [address] [place] [address] Performed By: #### 5 7021-8 ####[facility] LABCLIA [id number] [place] [address] Immature granulocytes/100 WBC (Bld) 0.0 % Normal [facility] Comment on above: Order Comment: Speci men Type: BLOOD SPECIMENOrdering Facility: [facility] [place] Address: [address] [place] [address] Performed By: #### 5 7021-8 ####[facility] LABCLIA [id number] [place] [address] Lymphocytes (Bld) [#/Vol] 0.51 10*3/uL Low 1.00-4.[address] [facility] Comment on above: Order Comment: Speci men Type: BLOOD SPECIMENOrdering Facility: [facility] [place] Address: [address] [place] [address] Performed By: #### 5 7021-8 ####[facility] LABCLIA [id number] [place] [address] Lymphocytes/100 WBC (Bld) 22.1 % Normal [facility] Comment on above: Order Comment: Speci men Type: BLOOD SPECIMENOrdering Facility: [facility] [place] Address: [address] [place] [address] Performed By: #### 5 7021-8 ####[facility] LABCLIA [id number] [place] [address] MCH (RBC) [Entitic mass] 34.5 pg High 26.0-34.[address] [facility] Comment on above: Order Comment: Speci men Type: BLOOD SPECIMENOrdering Facility: [facility] [place] Address: [address] [place] [address] Performed By: #### 5 7021-8 ####[facility] LABIA [id number] [place] [address] MCHC (RBC) [Mass/Vol] 34.0 g/dL Normal 30.5-36.[address] [facility] Comment on above: Order Comment: Speci men Type: BLOOD SPECIMENOrdering Facility: [facility] [place] Address: [address] [place] [address] Performed By: #### 5 7021-8 ####[facility] LABIA [id number] [place] [address] MCV (RBC) [Entitic vol] 101.5 fL High 80.0-100.[address] [facility] Comment on above: Order Comment: Speci men Type: BLOOD SPECIMENOrdering Facility: [facility] [place] Address: [address] [place] [address] Performed By: #### 5 7021-8 ####[facility] LABIA [id number] [place] [address] Monocytes (Bld) [#/Vol] 0.23 10*3/uL Normal <0.[address] [facility] Comment on above: Order Comment: Speci men Type: BLOOD SPECIMENOrdering Facility: [facility] [place] Address: [address] [place] [address] Performed By: #### 5 7021-8 ####[facility] LABCLIA [id number] [place] [address] Monocytes/100 WBC (Bld) 10.0 % Normal [facility] Comment on above: Order Comment: Speci men Type: BLOOD SPECIMENOrdering Facility: [facility] [place] Address: [address] [place] [address] Performed By: #### 5 7021-8 ####[facility] LABCLIA [id number] [place] [address] Neutrophils (Bld) [#/Vol] 1.35 10*3/uL Low 1.45-7.[address] [facility] Comment on above: Order Comment: Speci men Type: BLOOD SPECIMENOrdering Facility: [facility] [place] Address: [address] [place] [address] Performed By: #### 5 7021-8 ####[facility] LABCLIA [id number] [place] [address] Neutrophils/100 WBC (Bld) 58.3 % Normal [facility] Comment on above: Order Comment: Speci men Type: BLOOD SPECIMENOrdering Facility: [facility] [place] Address: [address] [place] [address] Performed By: #### 5 7021-8 ####[facility] LABCLIA [id number] [place] [address] Nucleated RBC (Bld) [#/Vol] 10*3/uL Normal <0.[address] [facility] Comment on above: Order Comment: Speci men Type: BLOOD SPECIMENOrdering Facility: [facility] [place] Address: [address] [place] [address] Performed By: #### 5 7021-8 ####[facility] LABIA [id number] [place] [address] Nucleated RBC/100 WBC (Bld) [Ratio] 0.0 /100 WBC [address] [facility] Comment on above: Order Comment: Speci men Type: BLOOD SPECIMENOrdering Facility: [facility] [place] Address: [address] [place] [address] Performed By: #### 5 7021-8 ####[facility] LABCLIA [id number] [place] [address] Platelet mean volume (Bld) [Entitic vol] 9.1 fL Normal 9.0-12.[address] [facility] Comment on above: Order Comment: Speci men Type: BLOOD SPECIMENOrdering Facility: [facility] [place] Address: [address] [place] [address] Performed By: #### 5 7021-8 ####[facility] LABCLIA [id number] [place] [address] Platelets (Bld) [#/Vol] 304 10*3/uL Normal 150-[address] [facility] Comment on above: Order Comment: Speci men Type: BLOOD SPECIMENOrdering Facility: [facility] [place] Address: [address] [place] [address] Performed By: #### 5 7021-8 ####[facility] LABCLIA [id number] [place] [address] RBC (Bld) [#/Vol] 3.30 10*6/uL Low 3.90-5.20 [facility] Comment on above: Order Comment: Speci men Type: BLOOD SPECIMENOrdering Facility: [facility] [place] Address: [address] [place] [address] Performed By: #### 5 7021-8 ####[facility] LABCLIA [id number] [place] [address] WBC (Bld) [#/Vol] 2.31 10*3/uL Low 3.70-11.00 [facility] Comment on above: Order Comment: Speci men Type: BLOOD SPECIMENOrdering Facility: [facility] [place] Address: [address] [place] [address] Performed By: #### 5 7021-8 ####[facility] LABCLIA [id number] [place] [address] CNNURSEon 12-24-2024 CNNURSE [address] [facility] Comprehensive metabolic 2000 panelOrdered By: Jennifer Rosa on 12-24-2024 Albumin [Mass/Vol] 4 g/dL 3.9 - 4.9 g/dL [facility] ALP [Catalytic activity/Vol] 96 U/L 34 - 123 U[facility] ALT [Catalytic activity/Vol] 16 U/L 7 - 38 U/L [facility] Anion gap [Moles/Vol] 12 mmol/L 8 - 15 mmol/L [facility] AST [Catalytic activity/Vol] 18 U/L 13 - 35 U/L [facility] Bilirubin [Mass/Vol] 0.5 mg/dL 0.2 - 1 .3 mg/dL [facility] Calcium [Mass/Vol] 9.3 mg/dL 8.5 - 10. 2 mg/dL [facility] Chloride [Moles/Vol] 105 mmol/L 98 - 10 7 mmol/L [facility] CO2 [Moles/Vol] 25 mmol/L 22 - 30 mmol/L [facility] Creatinine [Mass/Vol] 1.25 mg/dL High 0.58 - 0.96 mg/dL [facility] GFR/1.73 sq M.predicted among non-blacks MDRD (S/P/Bld) [Vol rate/Area] 46 mL/min/{1.73_m2} Low - PINF [facility] Comment on above: Estimated Glomerular Filtration [...] 181 mg/dL High 74 - 99 mg/dL [facility] Comment on above: The [place] [employer] Association (ADA) provides guidance for [...] Standards of Medical Care in Diabetes 2016, [place] [employer]. Diabetes Care. 2016.39(Suppl 1). Interpretation and review of laboratory results Abnormal [facility] Potassium [Moles/Vol] 4.3 mmol/L 3.7 - 5.1 mmol/L [facility] Protein [Mass/Vol] 6.7 g/dL 6.3 - 8.0 g/dL [facility] Sodium [Moles/Vol] 142 mmol/L 136 - 144 mmol/L [facility] Urea nitrogen [Mass/Vol] 18 mg/dL 7 - 21 mg/dL [facility] Comprehensive metabolic 2000 panelon 12-24-2024 Albumin [Mass/Vol] 4.0 g/dL Normal 3.9-4.9 [facility] Comment on above: Order Comment: Speci men Type: BLOOD SPECIMENOrdering Facility: [facility] [place] Address: [address] [place] [address] Performed By: #### 2 4323-8 ####[facility] LABCLIA [id number] [place] [address] ALP [Catalytic activity/Vol] 96 U/L Normal 34-[address] [facility] Comment on above: Order Comment: Speci men Type: BLOOD SPECIMENOrdering Facility: [facility] [place] Address: [address] [place] [address] Performed By: #### 2 4323-8 ####[facility] LABCLIA [id number] [place] [address] ALT [Catalytic activity/Vol] 16 U/L Normal 7-[address] [facility] Comment on above: Order Comment: Speci men Type: BLOOD SPECIMENOrdering Facility: [facility] [place] Address: [address] [place] [address] Performed By: #### 2 4323-8 ####[facility] LABCLIA [id number] [place] [address] Anion gap [Moles/Vol] 12 mmol/L Normal 8-[address] [facility] Comment on above: Order Comment: Speci men Type: BLOOD SPECIMENOrdering Facility: [facility] [place] Address: [address] [place], [place] [address] Performed By: #### 2 4323-8 ####[facility] LABCLIA [id number] [place] [address] AST [Catalytic activity/Vol] 18 U/L Normal 13-[address] [facility] Comment on above: Order Comment: Speci men Type: BLOOD SPECIMENOrdering Facility: [facility] [place] Address: [address] [place] [address] Performed By: #### 2 4323-8 ####[facility] LABCLIA [id number] [place] [address] Bilirubin [Mass/Vol] 0.5 mg/dL Normal 0.2-1.3 [facility] Comment on above: Order Comment: Speci men Type: BLOOD SPECIMENOrdering Facility: [facility] [place] Address: [address] [place] [address] Performed By: #### 2 4323-8 ####[facility] LABCLIA [id number] [place] [address] Calcium [Mass/Vol] 9.3 mg/dL Normal 8.5-10.2 [facility] Comment on above: Order Comment: Speci men Type: BLOOD SPECIMENOrdering Facility: [facility] [place] Address: [address] [place] [address] Performed By: #### 2 4323-8 ####[facility] LABCLIA [id number] [place] [address] Chloride [Moles/Vol] 105 mmol/L Normal 98-107 [facility] Comment on above: Order Comment: Speci men Type: BLOOD SPECIMENOrdering Facility: [facility] [place] Address: [address] [place], [place] [address] Performed By: #### 2 4323-8 ####[facility] LABCLIA [id number] [place] [address] CO2 [Moles/Vol] 25 mmol/L Normal 22-[address] [facility] Comment on above: Order Comment: Speci men Type: BLOOD SPECIMENOrdering Facility: [facility] [place] Address: [address] [place] [address] Performed By: #### 2 4323-8 ####[facility] LABCLIA [id number] [place] [address] Creatinine [Mass/Vol] 1.25 mg/dL High 0.58-0.[address] [facility] Comment on above: Order Comment: Speci men Type: BLOOD SPECIMENOrdering Facility: [facility] [place] Address: [address] [place] [address] Performed By: #### 2 4323-8 ####[facility] LABCLIA [id number] [place] [address] Creatinine and Glomerular filtration rate.predicted panel (S/P/Bld) 46 mL/min/1.73m??? Low >=[address] [facility] Comment on above: Order Comment: Speci men Type: BLOOD SPECIMENOrdering Facility: [facility] [place] Address: [address] [place] [address] Result Comment: Cristal mated Glomerular Filtration Rate [...] actual GFR. Performed By: #### 2 4323-8 ####[facility] LABCLIA [id number] [place] [address] Glucose [Mass/Vol] 181 mg/dL High 74-99 [facility] Comment on above: Order Comment: Speci men Type: BLOOD SPECIMENOrdering Facility: [facility] [place] Address: [address] [place] [address] Result Comment: The [place] Diabetes Association (ADA) provides guidance for cutoff [...] Standards of Medical Care in Diabetes 2016, [place] [employer]. Diabetes Care. 2016.39(Suppl 1). Performed By: #### 2 4323-8 ####[facility] LABCLIA [id number] [place] [address] Potassium [Moles/Vol] 4.3 mmol/L Normal 3.7-5.[address] [facility] Comment on above: Order Comment: Speci men Type: BLOOD SPECIMENOrdering Facility: [facility] [place] Address: [address] [id number] Performed By: #### 2 4323-8 ####[facility] LABCLIA [id number] [place] [address] Protein [Mass/Vol] 6.7 g/dL Normal 6.3-8.0 [facility] Comment on above: Order Comment: Speci men Type: BLOOD SPECIMENOrdering Facility: [facility] [place] Address: [address] [place] [address] Performed By: #### 2 4323-8 ####[facility] LABCLIA [id number] [place] [address] Sodium [Moles/Vol] 142 mmol/L Normal 136-144 [facility] Comment on above: Order Comment: Speci men Type: BLOOD SPECIMENOrdering Facility: [facility] [place] Address: [address] [place] [address] Performed By: #### 2 4323-8 ####[facility] LABCLIA [id number] [place] [address] Urea nitrogen [Mass/Vol] 18 mg/dL Normal 7-[address] [facility] Comment on above: Order Comment: Speci men Type: BLOOD SPECIMENOrdering Facility: [facility] [place] Address: [address] [place], [place] [address] Performed By: #### 2 4323-8 ####[facility] LABCLIA [id number] [place] [address] CNPNon 12-22-2024 CNPN [address] [facility] CNPNon 10-16-2024 CNPN Normal [facility] CNOVon 10-15-2024 CNOV [address] [facility] CNPNon 10-13-2024 CNPN Normal [facility] CNOVSPon 10-02-2024 CNOVSP Normal [facility] CNNURSEon 09-29-2024 CNNURSE [address] [facility] CNPNon 09-14-2024 CNPN Normal [facility] CBC W Auto Differential pane l (Bld)on 09-11-2024 Basophils (Bld) [#/Vol] 0.04 10*3/uL [facility] Basophils/100 WBC (Bld) 0.7 % [facility] Differential cell count method Nom (Bld) Auto [facility] Eosinophils (Bld) [#/Vol] 0.53 10*3/uL High [facility] Eosinophils/100 WBC (Bld) 8.8 % [facility] Erythrocyte distribution width (RBC) [Ratio] 13.6 % 11.5 - 15.0 % [facility] Hematocrit (Bld) [Volume fraction] 35.4 % Low 36.0 - 46.0 % [facility] Hemoglobin (Bld) [Mass/Vol] 11.6 g/dL 11.5 - 15.5 g/dL [facility] Immature granulocytes (Bld) [#/Vol] [employer] Immature granulocytes/100 WBC (Bld) 0.2 % [facility] Interpretation and review of laboratory results Abnormal [facility] Lymphocytes (Bld) [#/Vol] 0.80 10*3/uL Low [facility] Lymphocytes/100 WBC (Bld) 13.2 % [facility] MCH (RBC) [Entitic mass] 31.6 pg 26.0 - 34.0 pg [facility] MCHC (RBC) [Mass/Vol] 32.8 g/dL 30.5 - 36.0 g/dL [facility] MCV (RBC) [Entitic vol] 96.5 fL 80.0 - 100.0 fL [facility] Monocytes (Bld) [#/Vol] 0.29 10*3/uL [employer] [facility] [employer] Monocytes/100 WBC (Bld) 4.8 % [facility] Neutrophils (Bld) [#/Vol] 4.37 10*3/uL [facility] Neutrophils/100 WBC (Bld) 72.3 % [facility] Nucleated RBC (Bld) [#/Vol] [employer] [facility] [facility] Nucleated RBC/100 WBC (Bld) [Ratio] 0.0 % /100 WBC [facility] Platelet mean volume (Bld) [Entitic vol] 8.8 fL Low 9.0 - 12.7 fL [facility] Platelets (Bld) [#/Vol] 368 10*3/uL [facility] RBC (Bld) [#/Vol] 3.67 10*6/uL Low 3.90 - 5.20 m/uL [facility] WBC (Bld) [#/Vol] 6.04 10*3/uL [facility] Basophils (Bld) [#/Vol] 0.04 10*3/uL Normal <0.[address] [facility] Comment on above: Order Comment: Speci men Type: BLOOD SPECIMENOrdering Facility: [facility] [place] Address: [address] [place] [address] Performed By: #### 5 7021-8 ####[facility] LABCLIA [id number] [place] [address] Basophils/100 WBC (Bld) 0.7 % Normal [facility] Comment on above: Order Comment: Speci men Type: BLOOD SPECIMENOrdering Facility: [facility] [place] Address: [address] [place] [address] Performed By: #### 5 7021-8 ####[facility] LABCLIA [id number] [place] [address] Differential cell count method Nom (Bld) Auto Normal [facility] Comment on above: Order Comment: Speci men Type: BLOOD SPECIMENOrdering Facility: [facility] [place] Address: [address] [place] [address] Performed By: #### 5 7021-8 ####[facility] LABCLIA [id number] [place] [address] Eosinophils (Bld) [#/Vol] 0.53 10*3/uL High <0.[address] [facility] Comment on above: Order Comment: Speci men Type: BLOOD SPECIMENOrdering Facility: [facility] [place] Address: [address] [place] [address] Performed By: #### 5 7021-8 ####[facility] LABCLIA [id number] [place] [address] Eosinophils/100 WBC (Bld) 8.8 % Normal [facility] Comment on above: Order Comment: Speci men Type: BLOOD SPECIMENOrdering Facility: [facility] [place] Address: [address] [place] [address] Performed By: #### 5 7021-8 ####[facility] LABCLIA [id number] [place] [address] Erythrocyte distribution width (RBC) [Ratio] 13.6 % Normal 11.5-15.[address] [facility] Comment on above: Order Comment: Speci men Type: BLOOD SPECIMENOrdering Facility: [facility] [place] Address: [address] [place] [address] Performed By: #### 5 7021-8 ####[facility] LABIA [id number] [place] [address] Hematocrit (Bld) [Volume fraction] 35.4 % Low 36.0-46.[address] [facility] Comment on above: Order Comment: Speci men Type: BLOOD SPECIMENOrdering Facility: [facility] [place] Address: [address] [place] [address] Performed By: #### 5 7021-8 ####[facility] LABCLIA [id number] [place] [address] Hemoglobin (Bld) [Mass/Vol] 11.6 g/dL Normal 11.5-15.[address] [facility] Comment on above: Order Comment: Speci men Type: BLOOD SPECIMENOrdering Facility: [facility] [place] Address: [address] [place] [address] Performed By: #### 5 7021-8 ####[facility] LABCLIA [id number] [place] [address] Immature granulocytes (Bld) [#/Vol] 10*3/uL Normal <0.[address] [facility] Comment on above: Order Comment: Speci men Type: BLOOD SPECIMENOrdering Facility: [facility] [place] Address: [address] [place] [address] Performed By: #### 5 7021-8 ####[facility] LABCLIA [id number] [place] [address] Immature granulocytes/100 WBC (Bld) 0.2 % Normal [facility] Comment on above: Order Comment: Speci men Type: BLOOD SPECIMENOrdering Facility: [facility] [place] Address: [address] [place] [address] Performed By: #### 5 7021-8 ####[facility] LABCLIA [id number] [place] [address] Lymphocytes (Bld) [#/Vol] 0.80 10*3/uL Low 1.00-4.[address] [facility] Comment on above: Order Comment: Speci men Type: BLOOD SPECIMENOrdering Facility: [facility] [place] Address: [address] [place] [address] Performed By: #### 5 7021-8 ####[facility] LABCLIA [id number] [place] [address] Lymphocytes/100 WBC (Bld) 13.2 % Normal [facility] Comment on above: Order Comment: Speci men Type: BLOOD SPECIMENOrdering Facility: [facility] [place] Address: [address] [place] [address] Performed By: #### 5 7021-8 ####[facility] LABCLIA [id number] [place] [address] MCH (RBC) [Entitic mass] 31.6 pg Normal 26.0-34.[address] [facility] Comment on above: Order Comment: Speci men Type: BLOOD SPECIMENOrdering Facility: [facility] [place] Address: [address] [place] [address] Performed By: #### 5 7021-8 ####[facility] [facility] LABIA [id number] [place] [address] MCHC (RBC) [Mass/Vol] 32.8 g/dL Normal 30.5-36.[address] [facility] Comment on above: Order Comment: Speci men Type: BLOOD SPECIMENOrdering Facility: [facility] [place] Address: [address] [place] [address] Performed By: #### 5 7021-8 ####[facility] LABIA [id number] [place] [address] MCV (RBC) [Entitic vol] 96.5 fL Normal 80.0-100.[address] [facility] Comment on above: Order Comment: Speci men Type: BLOOD SPECIMENOrdering Facility: [facility] [place] Address: [address] [place] [address] Performed By: #### 5 7021-8 ####[facility] LABIA [id number] [place] [address] Monocytes (Bld) [#/Vol] 0.29 10*3/uL Normal <0.[address] [facility] Comment on above: Order Comment: Speci men Type: BLOOD SPECIMENOrdering Facility: [facility] [place] Address: [address] [place] [address] Performed By: #### 5 7021-8 ####[facility] LABCLIA [id number] [place] [address] Monocytes/100 WBC (Bld) 4.8 % Normal [facility] Comment on above: Order Comment: Speci men Type: BLOOD SPECIMENOrdering Facility: [facility] [place] Address: [address] [place] [address] Performed By: #### 5 7021-8 ####[facility] LABCLIA [id number] [place] [address] Neutrophils (Bld) [#/Vol] 4.37 10*3/uL Normal 1.45-7.[address] [facility] Comment on above: Order Comment: Speci men Type: BLOOD SPECIMENOrdering Facility: [facility] [place] Address: [address] [place] [address] Performed By: #### 5 7021-8 ####[facility] LABCLIA [id number] [place] [address] Neutrophils/100 WBC (Bld) 72.3 % Normal [facility] Comment on above: Order Comment: Speci men Type: BLOOD SPECIMENOrdering Facility: [facility] [place] Address: [address] [place] [address] Performed By: #### 5 7021-8 ####[facility] LABCLIA [id number] [place] [address] Nucleated RBC (Bld) [#/Vol] 10*3/uL Normal <0.[address] [facility] Comment on above: Order Comment: Speci men Type: BLOOD SPECIMENOrdering Facility: [facility] [place] Address: [address] [place] [address] Performed By: #### 5 7021-8 ####[facility] LABIA [id number] [place] [address] Nucleated RBC/100 WBC (Bld) [Ratio] 0.0 /100 WBC [address] [facility] Comment on above: Order Comment: Speci men Type: BLOOD SPECIMENOrdering Facility: [facility] [place] Address: [address] [place] [address] Performed By: #### 5 7021-8 ####[facility] LABCLIA [id number] [place] [address] Platelet mean volume (Bld) [Entitic vol] 8.8 fL Low 9.0-12.[address] [facility] Comment on above: Order Comment: Speci men Type: BLOOD SPECIMENOrdering Facility: [facility] [place] Address: [address] [place] [address] Performed By: #### 5 7021-8 ####[facility] LABCLIA [id number] [place] [address] Platelets (Bld) [#/Vol] 368 10*3/uL Normal 150-[address] [facility] Comment on above: Order Comment: Speci men Type: BLOOD SPECIMENOrdering Facility: [facility] [place] Address: [address] [place] [address] Performed By: #### 5 7021-8 ####[facility] LABCLIA [id number] [place] [address] RBC (Bld) [#/Vol] 3.67 10*6/uL Low 3.90-5.20 [facility] Comment on above: Order Comment: Speci men Type: BLOOD SPECIMENOrdering Facility: [facility] [place] Address: [address] [place] [address] Performed By: #### 5 7021-8 ####[facility] LABCLIA [id number] [place] [address] WBC (Bld) [#/Vol] 6.04 10*3/uL Normal 3.70-11.00 [facility] Comment on above: Order Comment: Speci men Type: BLOOD SPECIMENOrdering Facility: [facility] [place] Address: [address] [place] [address] Performed By: #### 5 7021-8 ####[facility] LABCLIA [id number] [place] [address] Comprehensive metabolic 2000 panelon 09-11-2024 Albumin [Mass/Vol] 3.9 g/dL Normal 3.9-4.9 [facility] Comment on above: Order Comment: Speci men Type: BLOOD SPECIMENOrdering Facility: [facility] [place] Address: [address] [place] [address] Performed By: #### 2 4323-8 ####[facility] LABCLIA [id number] [place] [address] [place] ALP [Catalytic activity/Vol] 94 U/L Normal 34-[address] [facility] Comment on above: Order Comment: Speci men Type: BLOOD SPECIMENOrdering Facility: [facility] [place] Address: [address] [place] [address] Performed By: #### 2 4323-8 ####[facility] LABCLIA [id number] [place] [address] [place] ALT [Catalytic activity/Vol] 15 U/L Normal 7-[address] [facility] Comment on above: Order Comment: Speci men Type: BLOOD SPECIMENOrdering Facility: [facility] [place] Address: [address] [place] [address] Performed By: #### 2 4323-8 ####[facility] LABCLIA [id number] [place] [address] [place] Anion gap [Moles/Vol] 16 mmol/L High 8-[address] [facility] Comment on above: Order Comment: Speci men Type: BLOOD SPECIMENOrdering Facility: [facility] [place] Address: [address] [place] [address] Performed By: #### 2 4323-8 ####[facility] LABCLIA [id number] [place] [address] [place] AST [Catalytic activity/Vol] 22 U/L Normal 13-[address] [facility] Comment on above: Order Comment: Speci men Type: BLOOD SPECIMENOrdering Facility: [facility] [place] Address: [address] [place] [address] Performed By: #### 2 4323-8 ####[facility] LABCLIA [id number] [place] [address] [place] Bilirubin [Mass/Vol] 0.5 mg/dL Normal 0.2-1.3 [facility] Comment on above: Order Comment: Speci men Type: BLOOD SPECIMENOrdering Facility: [facility] [place] Address: [address] [place] [address] Performed By: #### 2 4323-8 ####[facility] LABCLIA [id number] [place] [address] [place] Calcium [Mass/Vol] 9.3 mg/dL Normal 8.5-10.2 [facility] Comment on above: Order Comment: Speci men Type: BLOOD SPECIMENOrdering Facility: [facility] [place] Address: [address] [place] [address] Performed By: #### 2 4323-8 ####[facility] LABCLIA [id number] [place] [address] [place] Chloride [Moles/Vol] 102 mmol/L Normal 98-107 [facility] Comment on above: Order Comment: Speci men Type: BLOOD SPECIMENOrdering Facility: [facility] [place] Address: [address] [place] [address] Performed By: #### 2 4323-8 ####[facility] LABCLIA [id number] [place] [address] [place] CO2 [Moles/Vol] 22 mmol/L Normal 22-[address] [facility] Comment on above: Order Comment: Speci men Type: BLOOD SPECIMENOrdering Facility: [facility] [place] Address: [address] [place] [address] Performed By: #### 2 4323-8 ####[facility] LABCLIA [id number] [place] [address] [place] Creatinine [Mass/Vol] 1.74 mg/dL High 0.58-0.[address] [facility] Comment on above: Order Comment: Alison mccain Type: BLOOD SPECIMENOrdering Facility: [facility] [place] Address: [address] [place] [address] Performed By: #### 2 4323-8 ####[facility] LABIA [id number] [place] [address] [facility] [place] Creatinine and Glomerular filtration rate.predicted panel (S/P/Bld) 31 mL/min/1.73m??? Low >=[address] [facility] Comment on above: Order Comment: Alison mccain Type: BLOOD SPECIMENOrdering Facility: [facility] [place] Address: [address] [place] [address] Result Comment: Cristal mated Glomerular Filtration Rate [...] actual GFR. Performed By: #### 2 4323-8 ####[facility] LABCLIA [id number] [place] [address] [place] Glucose [Mass/Vol] 173 mg/dL High 74-99 [facility] Comment on above: Order Comment: Alison mccain Type: BLOOD SPECIMENOrdering Facility: [facility] [place] Address: [address] [place] [address] Result Comment: The [place] Diabetes Association (ADA) provides guidance for cutoff [...] Standards of Medical Care in Diabetes 2016, [place] [employer]. Diabetes Care. 2016.39(Suppl 1). Performed By: #### 2 4323-8 ####[facility] LABCLIA [id number] [address] [address] [place] Potassium [Moles/Vol] 4.8 mmol/L Normal 3.7-5.[address] [facility] Comment on above: Order Comment: Speci men Type: BLOOD SPECIMENOrdering Facility: [facility] [place] Address: [address] [place], [place] [address] Performed By: #### 2 4323-8 ####[facility] LABIA [id number] [place] [address] [place] Protein [Mass/Vol] 6.7 g/dL Normal 6.3-8.0 [facility] Comment on above: Order Comment: Speci men Type: BLOOD SPECIMENOrdering Facility: [facility] [place] Address: [address] [place] [address] Result Comment: Resu lt rechecked. Performed By: #### 2 4323-8 ####[facility] LABIA [id number] [place] [id number] [place] Sodium [Moles/Vol] 140 mmol/L Normal 136-144 [facility] Comment on above: Order Comment: Speci men Type: BLOOD SPECIMENOrdering Facility: [facility] [place] Address: [address] [place] [address] Performed By: #### 2 4323-8 ####[facility] LABCLIA [id number] [place] [id number] [place] Urea nitrogen [Mass/Vol] 25 mg/dL High 7-[address] [facility] Comment on above: Order Comment: Speci men Type: BLOOD SPECIMENOrdering Facility: [facility] [place] Address: [address] [place] [id number] Performed By: #### 2 4323-8 ####[facility] LABCLIA [id number] [place] [address] [facility] [place] CNCOon 09-09-2024 CNCO Letter Text Normal [facility] CNPNon 09-02-2024 CNPN [address] [facility] BRIEF OP NOTon 09-01-2024 BRIEF OP NOT HNO ID: [id number] Author: RADHA CABRERA MD Service: Radiology Author Type: Physician Type: Brief Op Note Filed: 09/01/2024 12:58 Note Text: BRIEF OPERATIVE / PROCEDURE NOTE LOG ID: [id number] SURGERY/PROCEDURE DATE: 09/01/2024 INCISION/PROCEDURE START TIME: 12:47 PM INCISION CLOSE/PROCEDURE END TIME: 12:54 PM SURGEON(S)/PROCEDURALIST(S ) AND EMT PARAMEDIC(S): Surgeons and Role: * Radha Cabrera MD [...] DATE: September 01, 2024 TIME: 12:57 PM [facility] CNCNPATEDon 09-01-2024 [address] [facility] CYTOLOGY NON-GYNon CASE REPORT [facility] Comment on above: Order Comment: Speci men Type: SPECIMEN OBTAINED BY ASPIRATION Ordering Facility: [facility] [place] Address: [address] [place] [address] Result Comment: [facility] Cytology Report Case: [id number] Authorizing Provider: Radha Cabrera MD Collected: 09/01/2024 12:49 PM Ordering Location: [facility] INTERVENTIONAL Received: 09/01/2024 05:30 PM RADIOLOGY Pathologist: Cash Adler MD Specimen: Thyroid, Right, Lobe, 3.6 RT MID THYROID NODULE Performed By: #### C YTONON #### [facility] CLIA [id number] [address] [place] [address] [place] CLINICAL HISTORY Afirma received Normal [facility] Comment on above: Order Comment: Speci men Type: SPECIMEN OBTAINED BY ASPIRATION Ordering Facility: [facility] [place] Address: [address] [place] [address] Result Comment: Pre-op diagnosis: Multiple thyroid nodules [E04.2] Performed By: #### C YTONON #### [facility] CLIA [id number] [address] [place] [address] [place] FINAL DIAGNOSIS Normal [facility] Comment on above: Order Comment: Speci men Type: SPECIMEN OBTAINED BY ASPIRATION Ordering Facility: [facility] [place] Address: [address] [place] [address] Result Comment: A - Thyroid, Right, Lobe, FNA - 3.6 RT MID THYROID NODULE Benign. Follicular cells and cyst contents. The following cell blocks were associated with this case: A1 Cell Block, Alcohol Fixed Performed By: #### C YTONON #### [facility] CLIA [id number] [address] [place] [address] STATES OF [facility] FINAL PERFORMING LAB Normal [facility] Comment on above: Order Comment: Speci men Type: SPECIMEN OBTAINED BY ASPIRATION Ordering Facility: [facility] [place] Address: [address] [place] [address] Result Comment: Tech nical component, patient access registrar screening performed at [facility], [address] [place] [address] CLIA# [id number] Diagnostic interpretation performed at [facility], [address] [place] [address] CLIA# [id number] Chief Security Officer: Jaleel Garza M.D. Performed By: #### C YTONON #### [facility] CLIA [id number] [address] [place] [address] [place] GROSS DESCRIPTION Normal [facility] Comment on above: Order Comment: Speci men Type: SPECIMEN OBTAINED BY ASPIRATION Ordering Facility: [facility] [place] Address: [address] [place] [address] Result Comment: A. T hyroid, Right, Lobe 30 cc cloudy red CytoLyt with particles. ThinPrep and Cell Block prepared. Afirma received Performed By: #### C YTONON #### [facility] CLIA [id number] [address] [place] [address] OF [facility] ORDER COMMENT Normal [facility] Comment on above: Order Comment: Speci men Type: SPECIMEN OBTAINED BY ASPIRATION Ordering Facility: [facility] [place] Address: [address] [place] [address] Result Comment: Pre- op diagnosis: Multiple thyroid nodules [E04.2] Performed By: #### C YTONON #### [facility] CLIA [id number] [address] [place] [address] OF [facility] HISTORY PHYSICALon HISTORY PHYSICAL HNO ID: [id number] Author: RADHA CABRERA MD Service: Radiology Author [...] DATE: September 01, 2024 TIME: 12:37 PM [facility] US FINE NEEDLE ASPIRATIONon 09-01-2024 US FINE NEEDLE ASPIRATION * * *Final Report* * * DATE OF EXAM: Sep 01 2024 1:08PM [facility] 1249 - US FINE NEEDLE ASPIRATION / [...] performed by the: attending radiologist, without an personnel assistant. The attending radiologist performed the following procedural activities: Entire procedure IMPRESSION: Image-guided fine-needle aspiration of RIGHT mid thyroid nodule. Plan: Specimen(s) sent for evaluation. ATTESTATION: Signer name: Radha Cabrera I attest that I was present for the entire procedure. I reviewed the stored images and agree with the report as written. Sales Compensation Analyst: [employer] Transcribe Date/Time: Sep 01 2024 1:09P Dictated by : RADHA CABRERA MD This examination was interpreted and the report reviewed and electronically signed by: RADHA CABRERA MD on Sep 01 2024 1:11PM EST [id number] Normal [facility] CNOVon 08-12-[address]OV [address] [facility] CNPNon 07-20-2024 CNPN [address] [facility] CNNURSEon 07-17-2024 CNNURSE [address] [facility] CNOVSPon 07-16-2024 CNOVSP [address] [facility] CNOVon 07-15-2024 CNOV [address] [facility] CYTOLOGY NON-GYNon CASE REPORT Normal [facility] Comment on above: Order Comment: Speci men Type: SPECIMEN OBTAINED BY ASPIRATIONOrdering Facility: [facility] [place] Address: [address] [place] [address] Result Comment: [facility] Cytology Report Case: [id number] Provider: Sandy Mcgregor MD, PhD Collected: 07/15/2024 02:32 PMOrdering Location: Endocrinology Received: 07/15/2024 03:30 PMPathologist: Torri Nunez MDSpecimen: Thyroid, Right, Lobe, Mid Performed By: #### C YTONOLilia ####[facility] LABCLIA [id number] [place] [address] [place] CLINICAL HISTORY Thyroid Nodules Normal [facility] Comment on above: Order Comment: Speci men Type: SPECIMEN OBTAINED BY ASPIRATIONOrdering Facility: [facility] [place] Address: [address] [place] [address] Result Comment: Afir ma sample received Performed By: #### C YTONON ####[facility] LABCLIA [id number] [place] [address] [place] FINAL DIAGNOSIS Normal [facility] Comment on above: Order Comment: Speci men Type: SPECIMEN OBTAINED BY ASPIRATIONOrdering Facility: [facility] [place] Address: [address] [place] [address] Result Comment: A - Thyroid, Right Lobe, Fine Needle Aspirate - Mid Non-diagnostic aspirate sample. Insufficient thyroid follicular epithelial cells present for evaluation.The following cell blocks were associated with this case:A1 Cell Block, Alcohol Fixed Performed By: #### C YTONON ####[facility] LABCLIA [id number] [address] STATES OF [facility] FINAL PERFORMING LAB Normal [facility] Comment on above: Order Comment: Speci men Type: SPECIMEN OBTAINED BY ASPIRATIONOrdering Facility: [facility] [place] Address: [address] [place] [address] Result Comment: Tech nical component, patient access registrar screening performed at [facility], [address] [place] [address] CLIA# [id number] interpretation performed at [facility], [address] [place], [place] [address] CLIA# [id number] Director: Amor Eisenberg M.D. Performed By: #### C YTONON ####[facility] LABIA [id number] [place] [address] [place] GROSS DESCRIPTION Normal [facility] Comment on above: Order Comment: Speci men Type: SPECIMEN OBTAINED BY ASPIRATIONOrdering Facility: [facility] [place] Address: [address] [place] [address] Result Comment: A. T hyroid, Right, Lobe30 cc hazy pink fluid with particles. ThinPrep and Cell Block prepared and 2 smears. Afirma sample received Performed By: #### C [place] ####[facility] LABCLIA [id number] [facility] [place] [id number] [place] FNA BIOPSYon 07-15-2024 Sandy [...] the patient. Informed Consent Consent Obtained: Written [place] Protocol A moment to CARE was completed. [...] are available. Follow up with referring physician. [facility] US THYROID FNA (POC) ENDO US E ONLYon 07-15-2024 [facility] Basic metabolic 2000 panelon 07-14-2024 Anion gap [Moles/Vol] 15 mmol/L Normal 8-[address] [facility] Comment on above: Order Comment: Speci men Type: BLOOD SPECIMENOrdering Facility: [facility] [place] Address: [address] [place] [id number] Performed By: #### 2 4321-2 ####[facility] LABCLIA [id number] [address] [address] [place] Calcium [Mass/Vol] 9.8 mg/dL Normal 8.5-10.2 [facility] Comment on above: Order Comment: Speci men Type: BLOOD SPECIMENOrdering Facility: [facility] [place] Address: [address] [place] [address] Performed By: #### 2 4321-2 ####[facility] LABCLIA [id number] [place] [address] [place] Chloride [Moles/Vol] 103 mmol/L Normal 98-107 [facility] Comment on above: Order Comment: Speci men Type: BLOOD SPECIMENOrdering Facility: [facility] [place] Address: [address] [place], [place] [address] Performed By: #### 2 4321-2 ####[facility] LABCLIA [id number] [place] [address] [place] CO2 [Moles/Vol] 23 mmol/L Normal 22-[address] [facility] Comment on above: Order Comment: Speci men Type: BLOOD SPECIMENOrdering Facility: [facility] [place] Address: [address] [place], [place] [address] Performed By: #### 2 4321-2 ####[facility] LABCLIA [id number] [place] [id number] [place] Creatinine [Mass/Vol] 1.72 mg/dL High 0.58-0.[address] [facility] Comment on above: Order Comment: Speci men Type: BLOOD SPECIMENOrdering Facility: [facility] [place] Address: [address] [place], [place] [address] Performed By: #### 2 4321-2 ####[facility] LABCLIA [id number] [place] [address] [place] Creatinine and Glomerular filtration rate.predicted panel (S/P/Bld) 32 mL/min/1.73m??? Low >=[address] [facility] Comment on above: Order Comment: Alisno mccain Type: BLOOD SPECIMENOrdering Facility: [facility] [place] Address: [address] [place] [address] Result Comment: Cristal mated Glomerular Filtration Rate [...] actual GFR. Performed By: #### 2 4321-2 ####[facility] LABIA [id number] [place] [address] [place] Glucose [Mass/Vol] 149 mg/dL High 74-99 [facility] Comment on above: Order Comment: Alison mccain Type: BLOOD SPECIMENOrdering Facility: [facility] [place] Address: [address] [place] [address] Result Comment: The [place] [employer] Association (ADA) provides guidance for cutoff [...] Standards of Medical Care in Diabetes 2016, [place] [employer]. Diabetes Care. 2016.39(Suppl 1). Performed By: #### 2 4321-2 ####[facility] LABIA [id number] [place] [address] [place] Potassium [Moles/Vol] 4.5 mmol/L Normal 3.7-5.[address] [facility] Comment on above: Order Comment: Speci men Type: BLOOD SPECIMENOrdering Facility: [facility] [place] Address: [address] [place] [address] Performed By: #### 2 4321-2 ####[facility] LABCLIA [id number] [place] [address] [place] Sodium [Moles/Vol] 141 mmol/L Normal 136-144 [facility] Comment on above: Order Comment: Speci men Type: BLOOD SPECIMENOrdering Facility: [facility] [place] Address: [address] [place] [address] Performed By: #### 2 4321-2 ####[facility] LABCLIA [id number] [place] [address] [place] Urea nitrogen [Mass/Vol] 20 mg/dL Normal 7-[address] [facility] Comment on above: Order Comment: Speci men Type: BLOOD SPECIMENOrdering Facility: [facility] [place] Address: [address] [place] [address] Performed By: #### 2 4321-2 ####[facility] LABCLIA [id number] [place] [address] [place] CBC W Auto Differential pane l (Bld)on 07-06-2024 Basophils (Bld) [#/Vol] 0.03 10*3/uL [facility] Basophils/100 WBC (Bld) 0.5 % [facility] Differential cell count method Nom (Bld) Auto [facility] Eosinophils (Bld) [#/Vol] 0.38 10*3/uL [facility] Eosinophils/100 WBC (Bld) 6.9 % [facility] Erythrocyte distribution width (RBC) [Ratio] 15.8 % High 11.5 - 15.0 % [facility] Hematocrit (Bld) [Volume fraction] 33.9 % Low 36.0 - 46.0 % [facility] Hemoglobin (Bld) [Mass/Vol] 11.4 g/dL Low 11.5 - 15.5 g/dL [facility] Immature granulocytes (Bld) [#/Vol] 0.03 10*3/uL [facility] Immature granulocytes/100 WBC (Bld) 0.5 % [facility] Interpretation and review of laboratory results Abnormal [facility] Lymphocytes (Bld) [#/Vol] 0.94 10*3/uL Low [facility] Lymphocytes/100 WBC (Bld) 17.1 % [facility] MCH (RBC) [Entitic mass] 32.8 pg 26.0 - 34.0 pg [facility] MCHC (RBC) [Mass/Vol] 33.6 g/dL 30.5 - 36.0 g/dL [facility] MCV (RBC) [Entitic vol] 97.4 fL 80.0 - 100.0 fL [facility] Monocytes (Bld) [#/Vol] 0.25 10*3/uL [facility] Monocytes/100 WBC (Bld) 4.5 % [facility] Neutrophils (Bld) [#/Vol] 3.87 10*3/uL [facility] Neutrophils/100 WBC (Bld) 70.5 % [facility] Nucleated RBC (Bld) [#/Vol] [employer] [place] [employer] [facility] Nucleated RBC/100 WBC (Bld) [Ratio] 0.0 % /100 WBC [facility] Platelet mean volume (Bld) [Entitic vol] 8.9 fL Low 9.0 - 12.7 fL [facility] Platelets (Bld) [#/Vol] 255 10*3/uL [facility] RBC (Bld) [#/Vol] 3.48 10*6/uL Low 3.90 - 5.20 m/uL [facility] WBC (Bld) [#/Vol] 5.50 10*3/uL [facility] Basophils (Bld) [#/Vol] 0.03 10*3/uL Normal <0.[address] [facility] Comment on above: Order Comment: Speci men Type: BLOOD SPECIMENOrdering Facility: [facility] [place] Address: [address] [place] [address] Performed By: #### 5 7021-8 ####[facility] LABCLIA [id number] [place] [address] Basophils/100 WBC (Bld) 0.5 % Normal [facility] Comment on above: Order Comment: Speci men Type: BLOOD SPECIMENOrdering Facility: [facility] [place] Address: [address] [place] [address] Performed By: #### 5 7021-8 ####[facility] LABCLIA [id number] [place] [address] Differential cell count method Nom (Bld) Auto Normal [facility] Comment on above: Order Comment: Speci men Type: BLOOD SPECIMENOrdering Facility: [facility] [place] Address: [address] [place] [address] Performed By: #### 5 7021-8 ####[facility] LABCLIA [id number] [place] [address] Eosinophils (Bld) [#/Vol] 0.38 10*3/uL Normal <0.[address] [facility] Comment on above: Order Comment: Speci men Type: BLOOD SPECIMENOrdering Facility: [facility] [place] Address: [address] [place] [address] Performed By: #### 5 7021-8 ####[facility] LABCLIA [id number] [place] [address] Eosinophils/100 WBC (Bld) 6.9 % Normal [facility] Comment on above: Order Comment: Speci men Type: BLOOD SPECIMENOrdering Facility: [facility] [place] Address: [address] [place] [address] Performed By: #### 5 7021-8 ####[facility] LABCLIA [id number] [place] [address] Erythrocyte distribution width (RBC) [Ratio] 15.8 % High 11.5-15.[address] [facility] Comment on above: Order Comment: Speci men Type: BLOOD SPECIMENOrdering Facility: [facility] [place] Address: [address] [place] [address] Performed By: #### 5 7021-8 ####[facility] LABCLIA [id number] [place] [address] Hematocrit (Bld) [Volume fraction] 33.9 % Low 36.0-46.[address] [facility] Comment on above: Order Comment: Speci men Type: BLOOD SPECIMENOrdering Facility: [facility] [place] Address: [address] [place] [address] Performed By: #### 5 7021-8 ####[facility] LABCLIA [id number] [place] [address] Hemoglobin (Bld) [Mass/Vol] 11.4 g/dL Low 11.5-15.[address] [facility] Comment on above: Order Comment: Speci men Type: BLOOD SPECIMENOrdering Facility: [facility] [place] Address: [address] [place] [address] Performed By: #### 5 7021-8 ####[facility] LABIA [id number] [place] [address] Immature granulocytes (Bld) [#/Vol] 0.03 10*3/uL Normal <0.[address] [facility] Comment on above: Order Comment: Speci men Type: BLOOD SPECIMENOrdering Facility: [facility] [place] Address: [address] [place] [address] Performed By: #### 5 7021-8 ####[facility] LABCLIA [id number] [place] [address] Immature granulocytes/100 WBC (Bld) 0.5 % Normal [facility] Comment on above: Order Comment: Speci men Type: BLOOD SPECIMENOrdering Facility: [facility] [place] Address: [address] [place] [address] Performed By: #### 5 7021-8 ####[facility] LABIA [id number] [place] [address] Lymphocytes (Bld) [#/Vol] 0.94 10*3/uL Low 1.00-4.[address] [facility] Comment on above: Order Comment: Speci men Type: BLOOD SPECIMENOrdering Facility: [facility] [place] Address: [address] [place] [address] Performed By: #### 5 7021-8 ####[facility] LABCLIA [id number] [place] [address] Lymphocytes/100 WBC (Bld) 17.1 % Normal [facility] Comment on above: Order Comment: Speci men Type: BLOOD SPECIMENOrdering Facility: [facility] [place] Address: [address] [place] [address] Performed By: #### 5 7021-8 ####[facility] LABCLIA [id number] [place] [address] MCH (RBC) [Entitic mass] 32.8 pg Normal 26.0-34.[address] [facility] Comment on above: Order Comment: Speci men Type: BLOOD SPECIMENOrdering Facility: [facility] [place] Address: [address] [place] [address] Performed By: #### 5 7021-8 ####[facility] LABCLIA [id number] [place] [address] MCHC (RBC) [Mass/Vol] 33.6 g/dL Normal 30.5-36.[address] [facility] Comment on above: Order Comment: Speci men Type: BLOOD SPECIMENOrdering Facility: [facility] [place] Address: [address] [place] [address] Performed By: #### 5 7021-8 ####[facility] LABIA [id number] [place] [address] MCV (RBC) [Entitic vol] 97.4 fL Normal 80.0-100.[address] [facility] Comment on above: Order Comment: Speci men Type: BLOOD SPECIMENOrdering Facility: [facility] [place] Address: [address] [place] [address] Performed By: #### 5 7021-8 ####[facility] LABIA [id number] [place] [address] Monocytes (Bld) [#/Vol] 0.25 10*3/uL Normal <0.[address] [facility] Comment on above: Order Comment: Speci men Type: BLOOD SPECIMENOrdering Facility: [facility] [place] Address: [address] [place] [address] Performed By: #### 5 7021-8 ####[facility] LABCLIA [id number] [place] [address] Monocytes/100 WBC (Bld) 4.5 % Normal [facility] Comment on above: Order Comment: Speci men Type: BLOOD SPECIMENOrdering Facility: [facility] [place] Address: [address] [place] [address] Performed By: #### 5 7021-8 ####[facility] LABCLIA [id number] [place] [address] Neutrophils (Bld) [#/Vol] 3.87 10*3/uL Normal 1.45-7.[address] [facility] Comment on above: Order Comment: Speci men Type: BLOOD SPECIMENOrdering Facility: [facility] [place] Address: [address] [place] [address] Performed By: #### 5 7021-8 ####[facility] LABCLIA [id number] [place] [address] Neutrophils/100 WBC (Bld) 70.5 % Normal [facility] Comment on above: Order Comment: Speci men Type: BLOOD SPECIMENOrdering Facility: [facility] [place] Address: [address] [place] [address] Performed By: #### 5 7021-8 ####[facility] LABCLIA [id number] [place] [address] Nucleated RBC (Bld) [#/Vol] 10*3/uL Normal <0.[address] [facility] Comment on above: Order Comment: Speci men Type: BLOOD SPECIMENOrdering Facility: [facility] [place] Address: [address] [place] [address] Performed By: #### 5 7021-8 ####[facility] LABCLIA [id number] [place] [address] Nucleated RBC/100 WBC (Bld) [Ratio] 0.0 /100 WBC [address] [facility] Comment on above: Order Comment: Speci men Type: BLOOD SPECIMENOrdering Facility: [facility] [place] Address: [address] [place] [address] Performed By: #### 5 7021-8 ####[facility] LABCLIA [id number] [place] [address] Platelet mean volume (Bld) [Entitic vol] 8.9 fL Low 9.0-12.[address] [facility] Comment on above: Order Comment: Speci men Type: BLOOD SPECIMENOrdering Facility: [facility] [place] Address: [address] [place] [address] Performed By: #### 5 7021-8 ####[facility] LABCLIA [id number] [place] [address] Platelets (Bld) [#/Vol] 255 10*3/uL Normal 150-[address] [facility] Comment on above: Order Comment: Speci men Type: BLOOD SPECIMENOrdering Facility: [facility] [place] Address: [address] [place] [address] Performed By: #### 5 7021-8 ####[facility] LABCLIA [id number] [place] [address] RBC (Bld) [#/Vol] 3.48 10*6/uL Low 3.90-5.20 [facility] Comment on above: Order Comment: Speci men Type: BLOOD SPECIMENOrdering Facility: [facility] [place] Address: [address] [place] [address] Performed By: #### 5 7021-8 ####[facility] LABCLIA [id number] [place] [address] WBC (Bld) [#/Vol] 5.50 10*3/uL Normal 3.70-11.00 [facility] Comment on above: Order Comment: Alison mccain Type: BLOOD SPECIMENOrdering Facility: [facility] [place] Address: [address] [place] [address] Performed By: #### 5 7021-8 ####[facility] LABCLIA [id number] [place] [address] CYSTATIN Con 07-06-2024 Cystatin C [Mass/Vol] 1.66 mg/L High 0.61 - 0.95 mg/L [facility] Cystatin C eGFR 36 Low - PINF [facility] Comment on above: Estimated Glomerular Filtration [...] Interpretation and review of laboratory results Abnormal [facility] Cystatin C [Mass/Vol] 1.66 mg/L High 0.61-0.[address] [facility] Comment on above: Order Comment: Alison mccain Type: BLOOD SPECIMENOrdering Facility: [facility] [place] Address: [address] [place] [address] Performed By: #### C YSTC ####[facility] LABCLIA [id number] [place] [address] [place] CYSTATIN C EGFR 36 mL/min/1.73m??? Low >=60 C [facility] Comment on above: Order Comment: Alison mccain Type: BLOOD SPECIMENOrdering Facility: [facility] [place] Address: [address] [place] [address] Result Comment: Cristal mated Glomerular Filtration Rate [...] actual GFR. Performed By: #### C YSTC ####[facility] LABCLIA [id number] [place] [address] [place] Comprehensive metabolic 2000 panelOrdered By: Jennifer Rosa on 07-06-2024 Albumin [Mass/Vol] 4.0 g/dL 3.9 - 4.9 g/dL [facility] ALP [Catalytic activity/Vol] 75 U/L 34 - 123 U/L [facility] ALT [Catalytic activity/Vol] 11 U/L 7 - 38 U/L [facility] Anion gap [Moles/Vol] 14 mmol/L 8 - 15 mmol/L [facility] AST [Catalytic activity/Vol] 10 U/L Low 13 - 35 U/L [facility] Bilirubin [Mass/Vol] 0.3 mg/dL 0.2 - 1 .3 mg/dL [facility] Calcium [Mass/Vol] 9.5 mg/dL 8.5 - 10. 2 mg/dL [facility] Chloride [Moles/Vol] 108 mmol/L High 98 - 10 7 mmol/L [facility] CO2 [Moles/Vol] 21 mmol/L Low 22 - 30 mmol/L [facility] Creatinine [Mass/Vol] 2.17 mg/dL High 0.58 - 0.96 mg/dL [facility] GFR/1.73 sq M.predicted among non-blacks MDRD (S/P/Bld) [Vol rate/Area] 24 mL/min/{1.73_m2} Low - PINF [facility] Comment on above: Estimated Glomerular Filtration [...] 127 mg/dL High 74 - 99 mg/dL [facility] Comment on above: The [place] Diab[employer] s Association (ADA) provides guidance for [...] Standards of Medical Care in Diabetes 2016, [place] Diabetes Association. Diabetes Care. 2016.39(Suppl 1). Interpretation and review of laboratory results Abnormal [facility] Potassium [Moles/Vol] 4.4 mmol/L 3.7 - 5.1 mmol/L [facility] Protein [Mass/Vol] 6.7 g/dL 6.3 - 8.0 g/dL [facility] Sodium [Moles/Vol] 143 mmol/L 136 - 144 mmol/L [facility] Urea nitrogen [Mass/Vol] 28 mg/dL High 7 - 21 mg/dL [facility] Comprehensive metabolic 2000 panelon 07-06-2024 Albumin [Mass/Vol] 4.0 g/dL Normal 3.9-4.9 [facility] Comment on above: Order Comment: Speci men Type: BLOOD SPECIMENOrdering Facility: [facility] [place] Address: [address] [place] [address] Performed By: #### 2 4323-8 ####[facility] LABCLIA [id number] [place] [address] ALP [Catalytic activity/Vol] 75 U/L Normal 34-[address] [facility] Comment on above: Order Comment: Speci men Type: BLOOD SPECIMENOrdering Facility: [facility] [place] Address: [address] [place] [address] Performed By: #### 2 4323-8 ####[facility] LABCLIA [id number] [place] [address] ALT [Catalytic activity/Vol] 11 U/L Normal 7-[address] [facility] Comment on above: Order Comment: Speci men Type: BLOOD SPECIMENOrdering Facility: [facility] [place] Address: [address] [place] [address] Performed By: #### 2 4323-8 ####[facility] LABCLIA [id number] [place] [address] Anion gap [Moles/Vol] 14 mmol/L Normal 8-[address] [facility] Comment on above: Order Comment: Speci men Type: BLOOD SPECIMENOrdering Facility: [facility] [place] Address: [address] [place] [address] Performed By: #### 2 4323-8 ####[facility] LABCLIA [id number] [place] [address] AST [Catalytic activity/Vol] 10 U/L Low 13-[address] [facility] Comment on above: Order Comment: Speci men Type: BLOOD SPECIMENOrdering Facility: [facility] [place] Address: [address] [place] [address] Performed By: #### 2 4323-8 ####[facility] LABCLIA [id number] [place] [address] Bilirubin [Mass/Vol] 0.3 mg/dL Normal 0.2-1.3 [facility] Comment on above: Order Comment: Speci men Type: BLOOD SPECIMENOrdering Facility: [facility] [place] Address: [address] [place] [address] Performed By: #### 2 4323-8 ####[facility] LABCLIA [id number] [place] [address] Calcium [Mass/Vol] 9.5 mg/dL Normal 8.5-10.2 [facility] Comment on above: Order Comment: Speci men Type: BLOOD SPECIMENOrdering Facility: [facility] [place] Address: [address] [place] [address] Performed By: #### 2 4323-8 ####[facility] LABCLIA [id number] [place] [address] Chloride [Moles/Vol] 108 mmol/L High 98-107 [facility] Comment on above: Order Comment: Speci men Type: BLOOD SPECIMENOrdering Facility: [facility] [place] Address: [address] [place] [address] Performed By: #### 2 4323-8 ####[facility] LABCLIA [id number] [place] [address] CO2 [Moles/Vol] 21 mmol/L Low 22-[address] [facility] Comment on above: Order Comment: Speci men Type: BLOOD SPECIMENOrdering Facility: [facility] [place] Address: [address] [place] [address] Performed By: #### 2 4323-8 ####[facility] LABCLIA [id number] [place] [address] Creatinine [Mass/Vol] 2.17 mg/dL High 0.58-0.[address] [facility] Comment on above: Order Comment: Speci men Type: BLOOD SPECIMENOrdering Facility: [facility] [place] Address: [address] [place] [address] Performed By: #### 2 4323-8 ####[facility] LABCLIA [id number] [place] [address] Creatinine and Glomerular filtration rate.predicted panel (S/P/Bld) 24 mL/min/1.73m??? Low >=[address] [facility] Comment on above: Order Comment: Speci men Type: BLOOD SPECIMENOrdering Facility: [facility] [place] Address: [address] [place] [address] Result Comment: Cristal mated Glomerular Filtration Rate [...] actual GFR. Performed By: #### 2 4323-8 ####[facility] LABCLIA [id number] [place] [address] Glucose [Mass/Vol] 127 mg/dL High 74-99 [facility] Comment on above: Order Comment: Speci men Type: BLOOD SPECIMENOrdering Facility: [facility] [place] Address: [address] [place], [place] [id number] Result Comment: The [place] Diabetes Association (ADA) provides guidance for cutoff [...] Standards of Medical Care in Diabetes 2016, [place] Diabetes Association. Diabetes Care. 2016.39(Suppl 1). Performed By: #### 2 4323-8 ####[facility] LABCLIA [id number] [place] [address] Potassium [Moles/Vol] 4.4 mmol/L Normal 3.7-5.[address] [facility] Comment on above: Order Comment: Speci men Type: BLOOD SPECIMENOrdering Facility: [facility] [place] Address: [address] [place] [address] Performed By: #### 2 4323-8 ####[facility] LABCLIA [id number] [place] [address] Protein [Mass/Vol] 6.7 g/dL Normal 6.3-8.0 [facility] Comment on above: Order Comment: Speci men Type: BLOOD SPECIMENOrdering Facility: [facility] [place] Address: [address] [place], [place] [address] Performed By: #### 2 4323-8 ####[facility] LABCLIA [id number] [place] [address] Sodium [Moles/Vol] 143 mmol/L Normal 136-144 [facility] Comment on above: Order Comment: Speci men Type: BLOOD SPECIMENOrdering Facility: [facility] [place] Address: [address] [place] [address] Performed By: #### 2 4323-8 ####[facility] LABCLIA [id number] [place] [address] Urea nitrogen [Mass/Vol] 28 mg/dL High 7-[address] [facility] Comment on above: Order Comment: Speci men Type: BLOOD SPECIMENOrdering Facility: [facility] [place] Address: [address] [place] [id number] Performed By: #### 2 4323-8 ####[facility] LABCLIA [id number] [place] [address] CNPNon 06-23-2024 CNPN Normal [facility] US THYROID/PARATHYROIDon US THYROID/PARATHYROID Normal [facility] ANES POSTPROC EVALon 024 ANES POSTPROC EVAL Normal [facility] ANES PRE-OPon 06-17-2024 ANES PRE-OP Normal [facility] OPERATIVE NOon 06-17-2024 OPERATIVE NO Normal [facility] CNOVSPon 06-03-2024 CNOVSP Normal [facility] CNPNon 06-03-2024 CNPN Normal [facility] ANES POSTPROC EVALon 024 ANES POSTPROC EVAL Normal [facility] ANES PRE-OPon 06-02-2024 ANES PRE-OP Normal [facility] OPERATIVE NOon 06-02-2024 OPERATIVE NO Normal [facility] CBC W Auto Differential pane l (Bld)on 06-01-2024 Basophils (Bld) [#/Vol] 0.04 10*3/uL [employer] [facility] [employer] [facility] Basophils/100 WBC (Bld) 0.9 % [facility] Differential cell count method Nom (Bld) Auto [facility] Eosinophils (Bld) [#/Vol] 0.43 10*3/uL [employer] [facility] Eosinophils/100 WBC (Bld) 9.8 % [facility] Erythrocyte distribution width (RBC) [Ratio] 14.0 % 11.5 - 15.0 % [facility] Hematocrit (Bld) [Volume fraction] 36.5 % 36.0 - 46.0 % [facility] Hemoglobin (Bld) [Mass/Vol] 12.1 g/dL 11.5 - 15.5 g/dL [facility] Immature granulocytes (Bld) [#/Vol] NINF [facility] Immature granulocytes/100 WBC (Bld) 0.5 % [facility] Interpretation and review of laboratory results Abnormal [facility] Lymphocytes (Bld) [#/Vol] 0.92 10*3/uL Low [facility] Lymphocytes/100 WBC (Bld) 20.9 % [facility] MCH (RBC) [Entitic mass] 31.6 pg 26.0 - 34.0 pg [facility] MCHC (RBC) [Mass/Vol] 33.2 g/dL 30.5 - 36.0 g/dL [facility] MCV (RBC) [Entitic vol] 95.3 fL 80.0 - 100.0 fL [facility] Monocytes (Bld) [#/Vol] 0.24 10*3/uL [facility] Monocytes/100 WBC (Bld) 5.5 % [facility] Neutrophils (Bld) [#/Vol] 2.75 10*3/uL [facility] Neutrophils/100 WBC (Bld) 62.4 % [facility] Nucleated RBC (Bld) [#/Vol] NINF [facility] Nucleated RBC/100 WBC (Bld) [Ratio] 0.0 % /100 WBC [facility] Platelet mean volume (Bld) [Entitic vol] 9.0 fL 9.0 - 12.7 fL [facility] Platelets (Bld) [#/Vol] 237 10*3/uL [facility] RBC (Bld) [#/Vol] 3.83 10*6/uL Low 3.90 - 5.20 m/uL [facility] WBC (Bld) [#/Vol] 4.40 10*3/uL [facility] Basophils (Bld) [#/Vol] 0.04 10*3/uL Normal <0.[address] [facility] Comment on above: Order Comment: Speci men Type: BLOOD SPECIMENOrdering Facility: [facility] [place] Address: [address] [place] [address] Performed By: #### 5 7021-8 ####[facility] LABCLIA [id number] [place] [address] Basophils/100 WBC (Bld) 0.9 % Normal [facility] Comment on above: Order Comment: Speci men Type: BLOOD SPECIMENOrdering Facility: [facility] [place] Address: [address] [place] [address] Performed By: #### 5 7021-8 ####[facility] LABCLIA [id number] [place] [address] Differential cell count method Nom (Bld) Auto Normal [facility] Comment on above: Order Comment: Speci men Type: BLOOD SPECIMENOrdering Facility: [facility] [place] Address: [address] [place] [address] Performed By: #### 5 7021-8 ####[facility] LABCLIA [id number] [place] [address] Eosinophils (Bld) [#/Vol] 0.43 10*3/uL Normal <0.[address] [facility] Comment on above: Order Comment: Speci men Type: BLOOD SPECIMENOrdering Facility: [facility] [place] Address: [address] [place] [address] Performed By: #### 5 7021-8 ####[facility] LABCLIA [id number] [place] [address] Eosinophils/100 WBC (Bld) 9.8 % Normal [facility] Comment on above: Order Comment: Speci men Type: BLOOD SPECIMENOrdering Facility: [facility] [place] Address: [address] [place] [address] Performed By: #### 5 7021-8 ####[facility] LABCLIA [id number] [place] [address] Erythrocyte distribution width (RBC) [Ratio] 14.0 % Normal 11.5-15.[address] [facility] Comment on above: Order Comment: Speci men Type: BLOOD SPECIMENOrdering Facility: [facility] [place] Address: [address] [place] [address] Performed By: #### 5 7021-8 ####[facility] LABCLIA [id number] [place] [address] Hematocrit (Bld) [Volume fraction] 36.5 % Normal 36.0-46.[address] [facility] Comment on above: Order Comment: Speci men Type: BLOOD SPECIMENOrdering Facility: [facility] [place] Address: [address] [place] [address] Performed By: #### 5 7021-8 ####[facility] LABCLIA [id number] [place] [address] Hemoglobin (Bld) [Mass/Vol] 12.1 g/dL Normal 11.5-15.[address] [facility] Comment on above: Order Comment: Speci men Type: BLOOD SPECIMENOrdering Facility: [facility] [place] Address: [address] [place] [address] Performed By: #### 5 7021-8 ####[facility] LABCLIA [id number] [place] [address] Immature granulocytes (Bld) [#/Vol] 10*3/uL Normal <0.[address] [facility] Comment on above: Order Comment: Speci men Type: BLOOD SPECIMENOrdering Facility: [facility] [place] Address: [address] [place] [address] Performed By: #### 5 7021-8 ####[facility] LABCLIA [id number] [place] [address] Immature granulocytes/100 WBC (Bld) 0.5 % Normal [facility] Comment on above: Order Comment: Speci men Type: BLOOD SPECIMENOrdering Facility: [facility] [place] Address: [address] [place] [address] Performed By: #### 5 7021-8 ####[facility] LABCLIA [id number] [place] [address] Lymphocytes (Bld) [#/Vol] 0.92 10*3/uL Low 1.00-4.[address] [facility] Comment on above: Order Comment: Speci men Type: BLOOD SPECIMENOrdering Facility: [facility] [place] Address: [address] [place] [address] Performed By: #### 5 7021-8 ####[facility] LABCLIA [id number] [place] [address] Lymphocytes/100 WBC (Bld) 20.9 % Normal [facility] Comment on above: Order Comment: Speci men Type: BLOOD SPECIMENOrdering Facility: [facility] [place] Address: [address] [place] [address] Performed By: #### 5 7021-8 ####[facility] LABCLIA [id number] [place] [address] MCH (RBC) [Entitic mass] 31.6 pg Normal 26.0-34.[address] [facility] Comment on above: Order Comment: Speci men Type: BLOOD SPECIMENOrdering Facility: [facility] [place] Address: [address] [place] [address] Performed By: #### 5 7021-8 ####[facility] LABCLIA [id number] [place] [address] MCHC (RBC) [Mass/Vol] 33.2 g/dL Normal 30.5-36.[address] [facility] Comment on above: Order Comment: Speci men Type: BLOOD SPECIMENOrdering Facility: [facility] [place] Address: [address] [place] [address] Performed By: #### 5 7021-8 ####[facility] LABCLIA [id number] [place] [address] MCV (RBC) [Entitic vol] 95.3 fL Normal 80.0-100.[address] [facility] Comment on above: Order Comment: Speci men Type: BLOOD SPECIMENOrdering Facility: [facility] [place] Address: [address] [place] [address] Performed By: #### 5 7021-8 ####[facility] LABCLIA [id number] [place] [address] Monocytes (Bld) [#/Vol] 0.24 10*3/uL Normal <0.[address] [facility] Comment on above: Order Comment: Speci men Type: BLOOD SPECIMENOrdering Facility: [facility] [place] Address: [address] [place] [address] Performed By: #### 5 7021-8 ####[facility] LABCLIA [id number] [place] [address] Monocytes/100 WBC (Bld) 5.5 % Normal [facility] Comment on above: Order Comment: Speci men Type: BLOOD SPECIMENOrdering Facility: [facility] [place] Address: [address] [place] [address] Performed By: #### 5 7021-8 ####[facility] LABCLIA [id number] [place] [address] Neutrophils (Bld) [#/Vol] 2.75 10*3/uL Normal 1.45-7.[address] [facility] Comment on above: Order Comment: Speci men Type: BLOOD SPECIMENOrdering Facility: [facility] [place] Address: [address] [place] [address] Performed By: #### 5 7021-8 ####[facility] LABCLIA [id number] [place] [address] Neutrophils/100 WBC (Bld) 62.4 % Normal [facility] Comment on above: Order Comment: Speci men Type: BLOOD SPECIMENOrdering Facility: [facility] [place] Address: [address] [place] [address] Performed By: #### 5 7021-8 ####[facility] LABCLIA [id number] [place] [address] Nucleated RBC (Bld) [#/Vol] 10*3/uL Normal <0.[address] [facility] Comment on above: Order Comment: Speci men Type: BLOOD SPECIMENOrdering Facility: [facility] [place] Address: [address] [place] [address] Performed By: #### 5 7021-8 ####[facility] LABCLIA [id number] [place] [address] Nucleated RBC/100 WBC (Bld) [Ratio] 0.0 /100 WBC [address] [facility] Comment on above: Order Comment: Speci men Type: BLOOD SPECIMENOrdering Facility: [facility] [place] Address: [address] [place] [address] Performed By: #### 5 7021-8 ####[facility] LABCLIA [id number] [place] [address] Platelet mean volume (Bld) [Entitic vol] 9.0 fL Normal 9.0-12.[address] [facility] Comment on above: Order Comment: Speci men Type: BLOOD SPECIMENOrdering Facility: [facility] [place] Address: [address] [place] [address] Performed By: #### 5 7021-8 ####[facility] LABCLIA [id number] [place] [address] Platelets (Bld) [#/Vol] 237 10*3/uL Normal 150-[address] [facility] Comment on above: Order Comment: Speci men Type: BLOOD SPECIMENOrdering Facility: [facility] [place] Address: [address] [place] [address] Performed By: #### 5 7021-8 ####[facility] LABCLIA [id number] [place] [address] RBC (Bld) [#/Vol] 3.83 10*6/uL Low 3.90-5.20 [facility] Comment on above: Order Comment: Speci men Type: BLOOD SPECIMENOrdering Facility: [facility] [place] Address: [address] [place] [address] Performed By: #### 5 7021-8 ####[facility] LABCLIA [id number] [place] [address] WBC (Bld) [#/Vol] 4.40 10*3/uL Normal 3.70-11.00 [facility] Comment on above: Order Comment: Speci men Type: BLOOD SPECIMENOrdering Facility: [facility] [place] Address: [address] [place], [place] [address] [address] Performed By: #### 5 7021-8 ####[facility] LABCLIA [id number] [place] [address] Comprehensive metabolic 2000 panelOrdered By: Lebron Pederson on 06-01-2024 Albumin [Mass/Vol] 4.0 g/dL 3.9 - 4.9 g/dL [facility] ALP [Catalytic activity/Vol] 90 U/L 34 - 123 U/L [facility] ALT [Catalytic activity/Vol] 18 U/L 7 - 38 U/L [facility] Anion gap [Moles/Vol] 8 mmol/L 8 - 15 mmol/L [facility] AST [Catalytic activity/Vol] 17 U/L 13 - 35 U/L [facility] Bilirubin [Mass/Vol] 0.3 mg/dL 0.2 - 1 .3 mg/dL [facility] Calcium [Mass/Vol] 9.8 mg/dL 8.5 - 10. 2 mg/dL [facility] Chloride [Moles/Vol] 104 mmol/L 98 - 10 7 mmol/L [facility] CO2 [Moles/Vol] 26 mmol/L 22 - 30 mmol/L [facility] Creatinine [Mass/Vol] 1.92 mg/dL High 0.58 - 0.96 mg/dL [facility] GFR/1.73 sq M.predicted among non-blacks MDRD (S/P/Bld) [Vol rate/Area] 28 mL/min/{1.73_m2} Low - PINF [facility] Comment on above: Estimated Glomerular Filtration [...] 146 mg/dL High 74 - 99 mg/dL [facility] Comment on above: The [place] [employer] Association (ADA) provides guidance for [...] Standards of Medical Care in Diabetes 2016, [place] [employer]. Diabetes Care. 2016.39(Suppl 1). Interpretation and review of laboratory results Abnormal [facility] Potassium [Moles/Vol] 4.5 mmol/L 3.7 - 5.1 mmol/L [facility] Protein [Mass/Vol] 6.7 g/dL 6.3 - 8.0 g/dL [facility] Sodium [Moles/Vol] 138 mmol/L 136 - 144 mmol/L [facility] Urea nitrogen [Mass/Vol] 29 mg/dL High 7 - 21 mg/dL [facility] Comprehensive metabolic 2000 panelon 06-01-2024 Albumin [Mass/Vol] 4.0 g/dL Normal 3.9-4.9 [facility] Comment on above: Order Comment: Speci men Type: BLOOD SPECIMENOrdering Facility: [facility] [place] Address: [address] [place] [address] Performed By: #### 2 4323-8 ####[facility] LABCLIA [id number] [place] [address] ALP [Catalytic activity/Vol] 90 U/L Normal 34-[address] [facility] Comment on above: Order Comment: Speci men Type: BLOOD SPECIMENOrdering Facility: [facility] [place] Address: [address] [place] [address] Performed By: #### 2 4323-8 ####[facility] LABCLIA [id number] [place] [address] ALT [Catalytic activity/Vol] 18 U/L Normal 7-[address] [facility] Comment on above: Order Comment: Speci men Type: BLOOD SPECIMENOrdering Facility: [facility] [place] Address: [address] [place] [address] Performed By: #### 2 4323-8 ####[facility] LABCLIA [id number] [place] [address] Anion gap [Moles/Vol] 8 mmol/L Normal 8-[address] [facility] Comment on above: Order Comment: Speci men Type: BLOOD SPECIMENOrdering Facility: [facility] [place] Address: [address] [place] [address] Performed By: #### 2 4323-8 ####[facility] LABCLIA [id number] [place] [address] AST [Catalytic activity/Vol] 17 U/L Normal 13-[address] [facility] Comment on above: Order Comment: Speci men Type: BLOOD SPECIMENOrdering Facility: [facility] [place] Address: [address] [place] [address] Performed By: #### 2 4323-8 ####[facility] LABCLIA [id number] [place] [address] Bilirubin [Mass/Vol] 0.3 mg/dL Normal 0.2-1.3 [facility] Comment on above: Order Comment: Speci men Type: BLOOD SPECIMENOrdering Facility: [facility] [place] Address: [address] [place] [address] Performed By: #### 2 4323-8 ####[facility] LABCLIA [id number] [place] [address] Calcium [Mass/Vol] 9.8 mg/dL Normal 8.5-10.2 [facility] Comment on above: Order Comment: Speci men Type: BLOOD SPECIMENOrdering Facility: [facility] [place] Address: [address] [place] [address] Performed By: #### 2 4323-8 ####[facility] LABCLIA [id number] [place] [address] Chloride [Moles/Vol] 104 mmol/L Normal 98-107 [facility] Comment on above: Order Comment: Speci men Type: BLOOD SPECIMENOrdering Facility: [facility] [place] Address: [address] [place] [address] Performed By: #### 2 4323-8 ####[facility] LABCLIA [id number] [place] [address] CO2 [Moles/Vol] 26 mmol/L Normal 22-[address] [facility] Comment on above: Order Comment: Speci men Type: BLOOD SPECIMENOrdering Facility: [facility] [place] Address: [address] [place] [address] Performed By: #### 2 4323-8 ####[facility] LABCLIA [id number] [place] [address] Creatinine [Mass/Vol] 1.92 mg/dL High 0.58-0.[address] [facility] Comment on above: Order Comment: Speci men Type: BLOOD SPECIMENOrdering Facility: [facility] [place] Address: [address] [place] [address] Performed By: #### 2 4323-8 ####[facility] LABCLIA [id number] [place] [address] Creatinine and Glomerular filtration rate.predicted panel (S/P/Bld) 28 mL/min/1.73m??? Low >=[address] [facility] Comment on above: Order Comment: Speci men Type: BLOOD SPECIMENOrdering Facility: [facility] [place] Address: [address] [place] [address] Result Comment: Cristal mated Glomerular Filtration Rate [...] actual GFR. Performed By: #### 2 4323-8 ####[facility] LABCLIA [id number] [place] [address] Glucose [Mass/Vol] 146 mg/dL High 74-99 [facility] Comment on above: Order Comment: Speci men Type: BLOOD SPECIMENOrdering Facility: [facility] [place] Address: [address] [place] [address] Result Comment: The [place] Diabetes Association (ADA) provides guidance for cutoff [...] Standards of Medical Care in Diabetes 2016, [place] [employer]. Diabetes Care. 2016.39(Suppl 1). Performed By: #### 2 4323-8 ####[facility] LABCLIA [id number] [place] [address] Potassium [Moles/Vol] 4.5 mmol/L Normal 3.7-5.[address] [facility] Comment on above: Order Comment: Speci men Type: BLOOD SPECIMENOrdering Facility: [facility] [place] Address: [address] [place] [address] Performed By: #### 2 4323-8 ####[facility] LABCLIA [id number] [place] [address] Protein [Mass/Vol] 6.7 g/dL Normal 6.3-8.0 [facility] Comment on above: Order Comment: Joeli men Type: BLOOD SPECIMENOrdering Facility: [facility] [place] Address: [address] [place] [address] Performed By: #### 2 4323-8 ####[facility] LABCLIA [id number] [place] [address] Sodium [Moles/Vol] 138 mmol/L Normal 136-144 [facility] Comment on above: Order Comment: Speci men Type: BLOOD SPECIMENOrdering Facility: [facility] [place] Address: [address] [place] [address] Performed By: #### 2 4323-8 ####[facility] LABCLIA [id number] [place] [address] Urea nitrogen [Mass/Vol] 29 mg/dL High 7-[address] [facility] Comment on above: Order Comment: Speci men Type: BLOOD SPECIMENOrdering Facility: [facility] [place] Address: [address] [place] [address] Performed By: #### 2 4323-8 ####[facility] LABCLIA [id number] [place] [address] TSH SerPl-aCncon 06-01-2024 TSH Qn 4.750 m[IU]/L High 0.270-4.[address] [facility] Comment on above: Order Comment: Speci men Type: BLOOD SPECIMENOrdering Facility: [facility] [place] Address: [address] [place] [address] Performed By: #### 3 016-3 ####[facility] LABCLIA [id number] [facility] [id number] [place], [place] [id number] [place] HISTORY PHYSICALon HISTORY PHYSICAL Normal [facility] CNCNPATEDon 05-15-2024 CNCNPATED Normal [facility] CBC W Auto Differential pane l (Bld)on 05-05-2024 Basophils (Bld) [#/Vol] 0.04 10*3/uL Normal <0.[address] [facility] Comment on above: Order Comment: Speci men Type: BLOOD SPECIMENOrdering Facility: [facility] [place] Address: [address] [place] [address] Performed By: #### 5 7021-8 ####[facility] LABCLIA [id number] [place] [address] [place] Basophils/100 WBC (Bld) 0.6 % Normal [facility] Comment on above: Order Comment: Speci men Type: BLOOD SPECIMENOrdering Facility: [facility] [place] Address: [address] [place] [address] Performed By: #### 5 7021-8 ####[facility] LABCLIA [id number] [place] [address] [place] Differential cell count method Nom (Bld) Auto Normal [facility] Comment on above: Order Comment: Speci men Type: BLOOD SPECIMENOrdering Facility: [facility] [place] Address: [address] [place] [address] Performed By: #### 5 7021-8 ####[facility] LABCLIA [id number] [place] [address] [place] Eosinophils (Bld) [#/Vol] 0.48 10*3/uL High <0.[address] [facility] Comment on above: Order Comment: Speci men Type: BLOOD SPECIMENOrdering Facility: [facility] [place] Address: [address] [place] [address] Performed By: #### 5 7021-8 ####[facility] LABCLIA [id number] [place] [address] [place] Eosinophils/100 WBC (Bld) 6.9 % Normal [facility] Comment on above: Order Comment: Speci men Type: BLOOD SPECIMENOrdering Facility: [facility] [place] Address: [address] [place] [address] Performed By: #### 5 7021-8 ####[facility] LABCLIA [id number] [place] [address] [place] Erythrocyte distribution width (RBC) [Ratio] 13.4 % Normal 11.5-15.[address] [facility] Comment on above: Order Comment: Speci men Type: BLOOD SPECIMENOrdering Facility: [facility] [place] Address: [address] [place] [address] Performed By: #### 5 7021-8 ####[facility] LABCLIA [id number] [place] [address] [place] Hematocrit (Bld) [Volume fraction] 37.0 % Normal 36.0-46.[address] [facility] Comment on above: Order Comment: Speci men Type: BLOOD SPECIMENOrdering Facility: [facility] [place] Address: [address] [place] [address] Performed By: #### 5 7021-8 ####[facility] LABIA [id number] [place] [address] [place] Hemoglobin (Bld) [Mass/Vol] 11.8 g/dL Normal 11.5-15.[address] [facility] Comment on above: Order Comment: Speci men Type: BLOOD SPECIMENOrdering Facility: [facility] [place] Address: [address] [place] [address] Performed By: #### 5 7021-8 ####[facility] LABCLIA [id number] [place] [address] [place] Immature granulocytes (Bld) [#/Vol] 10*3/uL Normal <0.[address] [facility] Comment on above: Order Comment: Speci men Type: BLOOD SPECIMENOrdering Facility: [facility] [place] Address: [address] [place] [address] Performed By: #### 5 7021-8 ####[facility] LABCLIA [id number] [place] [address] [place] Immature granulocytes/100 WBC (Bld) 0.3 % Normal [facility] Comment on above: Order Comment: Speci men Type: BLOOD SPECIMENOrdering Facility: [facility] [place] Address: [address] [place] [address] Performed By: #### 5 7021-8 ####[facility] LABCLIA [id number] [place] [address] [place] Lymphocytes (Bld) [#/Vol] 1.07 10*3/uL Normal 1.00-4.[address] [facility] Comment on above: Order Comment: Speci men Type: BLOOD SPECIMENOrdering Facility: [facility] [place] Address: [address] [place] [address] Performed By: #### 5 7021-8 ####[facility] LABCLIA [id number] [place] [address] [place] Lymphocytes/100 WBC (Bld) 15.4 % Normal [facility] Comment on above: Order Comment: Speci men Type: BLOOD SPECIMENOrdering Facility: [facility] [place] Address: [address] [place] [address] Performed By: #### 5 7021-8 ####[facility] LABIA [id number] [place] [address] [place] MCH (RBC) [Entitic mass] 31.1 pg Normal 26.0-34.[address] [facility] [facility] Comment on above: Order Comment: Speci men Type: BLOOD SPECIMENOrdering Facility: [facility] [place] Address: [address] [place] [address] Performed By: #### 5 7021-8 ####[facility] LABIA [id number] [place] [address] [place] MCHC (RBC) [Mass/Vol] 31.9 g/dL Normal 30.5-36.[address] [facility] Comment on above: Order Comment: Speci men Type: BLOOD SPECIMENOrdering Facility: [facility] [place] Address: [address] [place] [address] Performed By: #### 5 7021-8 ####[facility] LABCLIA [id number] [place] [address] [place] MCV (RBC) [Entitic vol] 97.4 fL Normal 80.0-100.[address] [facility] Comment on above: Order Comment: Speci men Type: BLOOD SPECIMENOrdering Facility: [facility] [place] Address: [address] [place] [address] Performed By: #### 5 7021-8 ####[facility] LABCLIA [id number] [place] [address] [place] Monocytes (Bld) [#/Vol] 0.97 10*3/uL High <0.[address] [facility] Comment on above: Order Comment: Speci men Type: BLOOD SPECIMENOrdering Facility: [facility] [place] Address: [address] [place] [address] Performed By: #### 5 7021-8 ####[facility] LABCLIA [id number] [place] [address] [place] Monocytes/100 WBC (Bld) 13.9 % Normal [facility] Comment on above: Order Comment: Speci men Type: BLOOD SPECIMENOrdering Facility: [facility] [place] Address: [address] [place] [address] Performed By: #### 5 7021-8 ####[facility] LABCLIA [id number] [place] [address] [place] Neutrophils (Bld) [#/Vol] 4.38 10*3/uL Normal 1.45-7.[address] [facility] Comment on above: Order Comment: Speci men Type: BLOOD SPECIMENOrdering Facility: [facility] [place] Address: [address] [place] [address] Performed By: #### 5 7021-8 ####[facility] LABCLIA [id number] [place] [address] [place] Neutrophils/100 WBC (Bld) 62.9 % Normal [facility] Comment on above: Order Comment: Speci men Type: BLOOD SPECIMENOrdering Facility: [facility] [place] Address: [address] [place] [address] Performed By: #### 5 7021-8 ####[facility] LABCLIA [id number] [place] [address] [place] Nucleated RBC (Bld) [#/Vol] 10*3/uL Normal <0.[address] [facility] Comment on above: Order Comment: Speci men Type: BLOOD SPECIMENOrdering Facility: [facility] [place] Address: [address] [place] [address] Performed By: #### 5 7021-8 ####[facility] LABCLIA [id number] [place] [address] [place] Nucleated RBC/100 WBC (Bld) [Ratio] 0.0 /100 WBC [address] [facility] Comment on above: Order Comment: Speci men Type: BLOOD SPECIMENOrdering Facility: [facility] [place] Address: [address] [place] [address] Performed By: #### 5 7021-8 ####[facility] LABIA [id number] [place] [address] [place] Platelet mean volume (Bld) [Entitic vol] 9.8 fL Normal 9.0-12.[address] [facility] Comment on above: Order Comment: Speci men Type: BLOOD SPECIMENOrdering Facility: [facility] [place] Address: [address] [place] [address] Performed By: #### 5 7021-8 ####[facility] LABIA [id number] [place] [address] [place] Platelets (Bld) [#/Vol] 318 10*3/uL Normal 150-[address] [facility] Comment on above: Order Comment: Speci men Type: BLOOD SPECIMENOrdering Facility: [facility] [place] Address: [address] [place] [address] Performed By: #### 5 7021-8 ####[facility] LABCLIA [id number] [place] [address] [place] RBC (Bld) [#/Vol] 3.80 10*6/uL Low 3.90-5.20 [facility] Comment on above: Order Comment: Speci men Type: BLOOD SPECIMENOrdering Facility: [facility] [place] Address: [address] [place] [address] Performed By: #### 5 7021-8 ####[facility] LABCLIA [id number] [place] [address] [place] WBC (Bld) [#/Vol] 6.96 10*3/uL Normal 3.70-11.00 [facility] Comment on above: Order Comment: Speci men Type: BLOOD SPECIMENOrdering Facility: [facility] [place] Address: [address] [place] [address] Performed By: #### 5 7021-8 ####[facility] LABCLIA [id number] [place] [address] [place] CNOVon 05-05-2024 CNOV [address] [facility] Comprehensive metabolic 2000 panelon 05-05-2024 Albumin [Mass/Vol] 3.6 g/dL Low 3.9-4.9 [facility] Comment on above: Order Comment: Speci men Type: BLOOD SPECIMENOrdering Facility: [facility] [place] Address: [address] [place] [address] Performed By: #### 2 4323-8 ####[facility] LABCLIA [id number] [place] [address] [place] ALP [Catalytic activity/Vol] 111 U/L Normal 34-[address] [facility] Comment on above: Order Comment: Speci men Type: BLOOD SPECIMENOrdering Facility: [facility] [place] Address: [address] [place] [address] Performed By: #### 2 4323-8 ####[facility] LABCLIA [id number] [place] [address] [place] ALT [Catalytic activity/Vol] 20 U/L Normal 7-[address] [facility] Comment on above: Order Comment: Speci men Type: BLOOD SPECIMENOrdering Facility: [facility] [place] Address: [address] [place], [place] [address] Performed By: #### 2 4323-8 ####[facility] LABCLIA [id number] [place] [id number] [place] Anion gap [Moles/Vol] 12 mmol/L Normal 8-[address] [facility] Comment on above: Order Comment: Speci men Type: BLOOD SPECIMENOrdering Facility: [facility] [place] Address: [address] [place] [address] Performed By: #### 2 4323-8 ####[facility] LABCLIA [id number] [place] [address] [place] AST [Catalytic activity/Vol] 18 U/L Normal 13-[address] [facility] Comment on above: Order Comment: Speci men Type: BLOOD SPECIMENOrdering Facility: [facility] [place] Address: [address] [place] [address] Performed By: #### 2 4323-8 ####[facility] LABCLIA [id number] [place] [address] [place] Bilirubin [Mass/Vol] 0.3 mg/dL Normal 0.2-1.3 [facility] Comment on above: Order Comment: Speci men Type: BLOOD SPECIMENOrdering Facility: [facility] [place] Address: [address] [place] [address] Performed By: #### 2 4323-8 ####[facility] LABCLIA [id number] [place] [address] [place] Calcium [Mass/Vol] 8.6 mg/dL Normal 8.5-10.2 [facility] Comment on above: Order Comment: Speci men Type: BLOOD SPECIMENOrdering Facility: [facility] [place] Address: [address] [place], [place] [address] Performed By: #### 2 4323-8 ####[facility] LABCLIA [id number] [place] [address] [place] Chloride [Moles/Vol] 104 mmol/L Normal 98-107 [facility] Comment on above: Order Comment: Speci men Type: BLOOD SPECIMENOrdering Facility: [facility] [place] Address: [address] [place] [address] Performed By: #### 2 4323-8 ####[facility] LABCLIA [id number] [place] [address] [place] CO2 [Moles/Vol] 23 mmol/L Normal 22-[address] [facility] Comment on above: Order Comment: Speci men Type: BLOOD SPECIMENOrdering Facility: [facility] [place] Address: [address] [place] [address] Performed By: #### 2 4323-8 ####[facility] LABCLIA [id number] [place] [address] [place] Creatinine [Mass/Vol] 1.13 mg/dL High 0.58-0.[address] [facility] Comment on above: Order Comment: Speci men Type: BLOOD SPECIMENOrdering Facility: [facility] [place] Address: [address] [place] [address] Performed By: #### 2 4323-8 ####[facility] LABIA [id number] [place] [address] [place] Creatinine and Glomerular filtration rate.predicted panel (S/P/Bld) 53 mL/min/1.73m??? Low >=[address] [facility] Comment on above: Order Comment: Speci men Type: BLOOD SPECIMENOrdering Facility: [facility] [place] Address: [address] [place] [address] Result Comment: Cristal mated Glomerular Filtration Rate [...] actual GFR. Performed By: #### 2 4323-8 ####[facility] LABCLIA [id number] [place] [address] [place] Glucose [Mass/Vol] 147 mg/dL High 74-99 [facility] Comment on above: Order Comment: Speci men Type: BLOOD SPECIMENOrdering Facility: [facility] [place] Address: [address] [place] [address] Result Comment: The [place] [employer] (ADA) provides guidance for cutoff [...] Standards of Medical Care in Diabetes 2016, [place] [employer]. Diabetes Care. 2016.39(Suppl 1). Performed By: #### 2 4323-8 ####[facility] LABIA [id number] [place] [address] [place] Potassium [Moles/Vol] 4.3 mmol/L Normal 3.7-5.[address] [facility] Comment on above: Order Comment: Speci men Type: BLOOD SPECIMENOrdering Facility: [facility] [place] Address: [address] [place] [address] Performed By: #### 2 4323-8 ####[facility] LABIA [id number] [place] [address] [place] Protein [Mass/Vol] 6.0 g/dL Low 6.3-8.0 [facility] Comment on above: Order Comment: Speci men Type: BLOOD SPECIMENOrdering Facility: [facility] [place] Address: [address] [place] [address] Performed By: #### 2 4323-8 ####[facility] LABCLIA [id number] [place] [address] [place] Sodium [Moles/Vol] 139 mmol/L Normal 136-144 [facility] Comment on above: Order Comment: Speci men Type: BLOOD SPECIMENOrdering Facility: [facility] [place] Address: [address] [place] [address] Performed By: #### 2 4323-8 ####[facility] LABCLIA [id number] [place] [address] [place] Urea nitrogen [Mass/Vol] 15 mg/dL Normal 7-[address] [facility] Comment on above: Order Comment: Speci men Type: BLOOD SPECIMENOrdering Facility: [facility] [place] Address: [address] [place] [address] Performed By: #### 2 4323-8 ####[facility] LABIA [id number] [place] [address] [place] CNPNon 04-30-2024 CNPN Normal [facility] 25(OH)D3 [facility] 25-hydroxyvitamin D3 [Mass/Vol] 62.4 ng/mL Normal 31.0-80.[address] [facility] Comment on above: Order Comment: Speci men Type: BLOOD SPECIMENOrdering Facility: [facility] [place] Address: [address] [place] [address] Result Comment: Clas sification of 25 [place] Vitamin D status:Deficiency/Insufficiency: < or = 30 ng/ml.Sufficiency/Optimal Levels: 31-80 ng/mLToxicity: > 100 ng/mL.Test performed by chemiluminescent immunoassay. Performed By: #### 1 989-3 ####[facility] LABCLIA [id number] [place] [id number] [place] 25-hydroxyvitamin D3 [Mass/V ol]on 04-21-2024 Interpretation and review of laboratory results Normal [facility] The reference range interval was based on an analysis of samples from healthy adults and may not pertain to children from 0-18 years old. [facility] CBC W Auto Differential pane l (Bld)on 04-21-2024 Basophils (Bld) [#/Vol] 0.05 10*3/uL [facility] Basophils/100 WBC (Bld) 0.8 % [facility] Differential cell count method Nom (Bld) Auto [facility] Eosinophils (Bld) [#/Vol] 0.68 10*3/uL High [facility] Eosinophils/100 WBC (Bld) 10.6 % [facility] Erythrocyte distribution width (RBC) [Ratio] 13.3 % 11.5 - 15.0 % [facility] Hematocrit (Bld) [Volume fraction] 39.4 % 36.0 - 46.0 % [facility] Hemoglobin (Bld) [Mass/Vol] 13.0 g/dL 11.5 - 15.5 g/dL [facility] Immature granulocytes (Bld) [#/Vol] [facility] Immature granulocytes/100 WBC (Bld) 0.3 % [facility] Interpretation and review of laboratory results Abnormal [facility] Lymphocytes (Bld) [#/Vol] 0.86 10*3/uL Low [facility] Lymphocytes/100 WBC (Bld) 13.4 % [facility] MCH (RBC) [Entitic mass] 31.8 pg 26.0 - 34.0 pg [facility] MCHC (RBC) [Mass/Vol] 33.0 g/dL 30.5 - 36.0 g/dL [facility] MCV (RBC) [Entitic vol] 96.3 fL 80.0 - 100.0 fL [facility] Monocytes (Bld) [#/Vol] 0.50 10*3/uL [facility] Monocytes/100 WBC (Bld) 7.8 % [facility] Neutrophils (Bld) [#/Vol] 4.33 10*3/uL [facility] Neutrophils/100 WBC (Bld) 67.1 % [facility] Nucleated RBC (Bld) [#/Vol] [facility] Nucleated RBC/100 WBC (Bld) [Ratio] 0.0 % /100 WBC [facility] Platelet mean volume (Bld) [Entitic vol] 9.0 fL 9.0 - 12.7 fL [facility] Platelets (Bld) [#/Vol] 320 10*3/uL [facility] RBC (Bld) [#/Vol] 4.09 10*6/uL 3.90 - 5.20 m/uL [facility] WBC (Bld) [#/Vol] 6.44 10*3/uL [facility] Basophils (Bld) [#/Vol] 0.05 10*3/uL Normal <0.[address] [facility] Comment on above: Order Comment: Speci men Type: BLOOD SPECIMENOrdering Facility: [facility] [place] Address: [address] [place] [address] Performed By: #### 5 7021-8 ####[facility] [id number] [place] [address] [place] Basophils/100 WBC (Bld) 0.8 % Normal [facility] Comment on above: Order Comment: Speci men Type: BLOOD SPECIMENOrdering Facility: [facility] [place] Address: [address] [place] [address] Performed By: #### 5 7021-8 ####[facility] [id number] [place] [address] [place] Differential cell count method Nom (Bld) Auto Normal [facility] Comment on above: Order Comment: Speci men Type: BLOOD SPECIMENOrdering Facility: [facility] [place] Address: [address] [place] [address] Performed By: #### 5 7021-8 ####[facility] [id number] [place] [address] [place] Eosinophils (Bld) [#/Vol] 0.68 10*3/uL High <0.[address] [facility] Comment on above: Order Comment: Speci men Type: BLOOD SPECIMENOrdering Facility: [facility] [place] Address: [address] [place] [address] Performed By: #### 5 7021-8 ####[facility] [id number] [place] [address] [place] Eosinophils/100 WBC (Bld) 10.6 % Normal [facility] Comment on above: Order Comment: Speci men Type: BLOOD SPECIMENOrdering Facility: [facility] [place] Address: [address] [place] [address] Performed By: #### 5 7021-8 ####[facility] [id number] [place] [address] [place] Erythrocyte distribution width (RBC) [Ratio] 13.3 % Normal 11.5-15.[address] [facility] Comment on above: Order Comment: Speci men Type: BLOOD SPECIMENOrdering Facility: [facility] [place] Address: [address] [place] [address] Performed By: #### 5 7021-8 ####[facility] [id number] [place] [address] [place] Hematocrit (Bld) [Volume fraction] 39.4 % Normal 36.0-46.[address] [facility] Comment on above: Order Comment: Speci men Type: BLOOD SPECIMENOrdering Facility: [facility] [place] Address: [address] [place] [address] Performed By: #### 5 7021-8 ####[facility] [id number] [place] [address] [place] Hemoglobin (Bld) [Mass/Vol] 13.0 g/dL Normal 11.5-15.[address] [facility] Comment on above: Order Comment: Speci men Type: BLOOD SPECIMENOrdering Facility: [facility] [place] Address: [address] [place] [address] Performed By: #### 5 7021-8 ####[facility] [id number] [place] [id number] [place] Immature granulocytes (Bld) [#/Vol] 10*3/uL Normal <0.[address] [facility] Comment on above: Order Comment: Speci men Type: BLOOD SPECIMENOrdering Facility: [facility] [place] Address: [address] [place] [address] Performed By: #### 5 7021-8 ####[facility] [id number] [place] [address] [place] Immature granulocytes/100 WBC (Bld) 0.3 % Normal [facility] Comment on above: Order Comment: Speci men Type: BLOOD SPECIMENOrdering Facility: [facility] [place] Address: [address] [place] [address] Performed By: #### 5 7021-8 ####[facility] [id number] [place] [address] [place] Lymphocytes (Bld) [#/Vol] 0.86 10*3/uL Low 1.00-4.[address] [facility] Comment on above: Order Comment: Speci men Type: BLOOD SPECIMENOrdering Facility: [facility] [place] Address: [address] [place] [address] Performed By: #### 5 7021-8 ####[facility] [id number] [place] [id number] [place] Lymphocytes/100 WBC (Bld) 13.4 % Normal [facility] Comment on above: Order Comment: Speci men Type: BLOOD SPECIMENOrdering Facility: [facility] [place] Address: [address] [place] [address] Performed By: #### 5 7021-8 ####[facility] [id number] [place] [address] [place] MCH (RBC) [Entitic mass] 31.8 pg Normal 26.0-34.[address] [facility] Comment on above: Order Comment: Speci men Type: BLOOD SPECIMENOrdering Facility: [facility] [place] Address: [address] [place] [address] Performed By: #### 5 7021-8 ####[facility] [id number] [place] [address] [place] MCHC (RBC) [Mass/Vol] 33.0 g/dL Normal 30.5-36.[address] [facility] Comment on above: Order Comment: Speci men Type: BLOOD SPECIMENOrdering Facility: [facility] [place] Address: [address] [place] [address] Performed By: #### 5 7021-8 ####[facility] [id number] [place] [address] [place] MCV (RBC) [Entitic vol] 96.3 fL Normal 80.0-100.[address] [facility] Comment on above: Order Comment: Speci men Type: BLOOD SPECIMENOrdering Facility: [facility] [place] Address: [address] [place] [address] Performed By: #### 5 7021-8 ####[facility] [id number] [place] [address] [place] Monocytes (Bld) [#/Vol] 0.50 10*3/uL Normal <0.[address] [facility] Comment on above: Order Comment: Speci men Type: BLOOD SPECIMENOrdering Facility: [facility] [place] Address: [address] [place] [address] Performed By: #### 5 7021-8 ####[facility] [id number] [place] [address] [place] Monocytes/100 WBC (Bld) 7.8 % Normal [facility] Comment on above: Order Comment: Speci men Type: BLOOD SPECIMENOrdering Facility: [facility] [place] Address: [address] [place] [address] Performed By: #### 5 7021-8 ####[facility] [id number] [place] [address] [place] Neutrophils (Bld) [#/Vol] 4.33 10*3/uL Normal 1.45-7.[address] [facility] Comment on above: Order Comment: Speci men Type: BLOOD SPECIMENOrdering Facility: [facility] [place] Address: [address] [place] [address] Performed By: #### 5 7021-8 ####[facility] [id number] [place] [address] [place] Neutrophils/100 WBC (Bld) 67.1 % Normal [facility] Comment on above: Order Comment: Speci men Type: BLOOD SPECIMENOrdering Facility: [facility] [place] Address: [address] [place] [address] Performed By: #### 5 7021-8 ####[facility] [id number] [place] [address] [place] Nucleated RBC (Bld) [#/Vol] 10*3/uL Normal <0.[address] [facility] Comment on above: Order Comment: Speci men Type: BLOOD SPECIMENOrdering Facility: [facility] [place] Address: [address] [place] [address] Performed By: #### 5 7021-8 ####[facility] [id number] [place] [address] [place] Nucleated RBC/100 WBC (Bld) [Ratio] 0.0 /100 WBC Normal [facility] Comment on above: Order Comment: Speci men Type: BLOOD SPECIMENOrdering Facility: [facility] [place] Address: [address] [place] [address] Performed By: #### 5 7021-8 ####[facility] [id number] [place] [address] [place] Platelet mean volume (Bld) [Entitic vol] 9.0 fL Normal 9.0-12.[address] [facility] Comment on above: Order Comment: Speci men Type: BLOOD SPECIMENOrdering Facility: [facility] [place] Address: [address] [place] [address] Performed By: #### 5 7021-8 ####[facility] [id number] [place] [address] [place] Platelets (Bld) [#/Vol] 320 10*3/uL Normal 150-[address] [facility] Comment on above: Order Comment: Speci men Type: BLOOD SPECIMENOrdering Facility: [facility] [place] Address: [address] [place] [address] [place] [address] Performed By: #### 5 7021-8 ####[facility] [id number] [place] [address] [place] RBC (Bld) [#/Vol] 4.09 10*6/uL Normal 3.90-5.20 [facility] Comment on above: Order Comment: Speci men Type: BLOOD SPECIMENOrdering Facility: [facility] [place] Address: [address] [place] [address] Performed By: #### 5 7021-8 ####[facility] [id number] [place] [address] [facility] WBC (Bld) [#/Vol] 6.44 10*3/uL Normal 3.70-11.00 [facility] Comment on above: Order Comment: Speci men Type: BLOOD SPECIMENOrdering Facility: [facility] [place] Address: [address] [place] [address] Performed By: #### 5 7021-8 ####[facility] [id number] [place] [address] [place] CNOVSPon 04-21-2024 CNOVSP [address] [facility] CNPNon 04-21-2024 CNPN Normal [facility] Comprehensive metabolic 2000 panelon 04-21-2024 Albumin [Mass/Vol] 3.8 g/dL Low 3.9 - 4.9 g/dL [facility] ALP [Catalytic activity/Vol] 117 U/L 34 - 123 U/L [facility] ALT [Catalytic activity/Vol] 23 U/L 7 - 38 U/L [facility] Anion gap [Moles/Vol] 12 mmol/L 8 - 15 mmol/L [facility] AST [Catalytic activity/Vol] 20 U/L 13 - 35 U/L [facility] Bilirubin [Mass/Vol] 0.4 mg/dL 0.2 - 1 .3 mg/dL [facility] Calcium [Mass/Vol] 9.2 mg/dL 8.5 - 10. 2 mg/dL [facility] Chloride [Moles/Vol] 102 mmol/L 98 - 10 7 mmol/L [facility] CO2 [Moles/Vol] 28 mmol/L 22 - 30 mmol/L [facility] Creatinine [Mass/Vol] 1.13 mg/dL High 0.58 - 0.96 mg/dL [facility] GFR/1.73 sq M.predicted among non-blacks MDRD (S/P/Bld) [Vol rate/Area] 53 mL/min/{1.73_m2} Low - PINF [facility] Comment on above: Estimated Glomerular Filtration [...] 148 mg/dL High 74 - 99 mg/dL [facility] Comment on above: The [place] Diabete s Association (ADA) provides guidance for [...] Standards of Medical Care in Diabetes 2016, [place] [employer] Association. Diabetes Care. 2016.39(Suppl 1). Interpretation and review of laboratory results Abnormal [facility] Potassium [Moles/Vol] 4.6 mmol/L 3.7 - 5.1 mmol/L [facility] Protein [Mass/Vol] 6.4 g/dL 6.3 - 8.0 g/dL [facility] Sodium [Moles/Vol] 142 mmol/L 136 - 144 mmol/L [facility] Urea nitrogen [Mass/Vol] 23 mg/dL High 7 - 21 mg/dL [facility] Albumin [Mass/Vol] 3.8 g/dL Low 3.9-4.9 [facility] Comment on above: Order Comment: Speci men Type: BLOOD SPECIMENOrdering Facility: [facility] [place] Address: [address] [place] [address] Performed By: #### 2 4323-8 ####[facility] [id number] [place] [address] [place] ALP [Catalytic activity/Vol] 117 U/L Normal 34-[address] [facility] Comment on above: Order Comment: Speci men Type: BLOOD SPECIMENOrdering Facility: [facility] [place] Address: [address] [place] [address] Performed By: #### 2 4323-8 ####[facility] [id number] [place] [address] [place] ALT [Catalytic activity/Vol] 23 U/L Normal 7-[address] [facility] Comment on above: Order Comment: Speci men Type: BLOOD SPECIMENOrdering Facility: [facility] [place] Address: [address] [place] [address] Performed By: #### 2 4323-8 ####[facility] [id number] [place] [address] [place] Anion gap [Moles/Vol] 12 mmol/L Normal 8-[address] [facility] Comment on above: Order Comment: Speci men Type: BLOOD SPECIMENOrdering Facility: [facility] [place] Address: [address] [place] [address] Performed By: #### 2 4323-8 ####[facility] [id number] [place] [address] [place] AST [Catalytic activity/Vol] 20 U/L Normal 13-[address] [facility] Comment on above: Order Comment: Speci men Type: BLOOD SPECIMENOrdering Facility: [facility] [place] Address: [address] [place] [address] Performed By: #### 2 4323-8 ####[facility] [id number] [place] [address] [place] Bilirubin [Mass/Vol] 0.4 mg/dL Normal 0.2-1.3 [facility] Comment on above: Order Comment: Speci men Type: BLOOD SPECIMENOrdering Facility: [facility] [place] Address: [address] [place] [address] Performed By: #### 2 4323-8 ####[facility] [id number] [place] [address] [place] Calcium [Mass/Vol] 9.2 mg/dL Normal 8.5-10.2 [facility] Comment on above: Order Comment: Speci men Type: BLOOD SPECIMENOrdering Facility: [facility] [place] Address: [address] [place] [address] Performed By: #### 2 4323-8 ####[facility] [id number] [place] [address] [place] Chloride [Moles/Vol] 102 mmol/L Normal 98-107 [facility] Comment on above: Order Comment: Speci men Type: BLOOD SPECIMENOrdering Facility: [facility] [place] Address: [address] [place] [address] Performed By: #### 2 4323-8 ####[facility] [id number] [place] [address] [place] CO2 [Moles/Vol] 28 mmol/L Normal 22-[address] [facility] Comment on above: Order Comment: Speci men Type: BLOOD SPECIMENOrdering Facility: [facility] [place] Address: [address] [place] [address] Performed By: #### 2 4323-8 ####[facility] [id number] [place] [address] [place] Creatinine [Mass/Vol] 1.13 mg/dL High 0.58-0.[address] [facility] Comment on above: Order Comment: Speci men Type: BLOOD SPECIMENOrdering Facility: [facility] [place] Address: [address] [place] [address] Performed By: #### 2 4323-8 ####[facility] [id number] [facility] [place] [address] [place] Creatinine and Glomerular filtration rate.predicted panel (S/P/Bld) 53 mL/min/1.73m??? Low >=[address] [facility] Comment on above: Order Comment: Alison mccain Type: BLOOD SPECIMENOrdering Facility: [facility] [place] Address: [address] [place] [address] Result Comment: Cristal mated Glomerular Filtration Rate [...] actual GFR. Performed By: #### 2 4323-8 ####[facility] [id number] [facility] [place] [address] [place] Glucose [Mass/Vol] 148 mg/dL High 74-99 [facility] Comment on above: Order Comment: Alison mccain Type: BLOOD SPECIMENOrdering Facility: [facility] [place] Address: [address] [place] [address] Result Comment: The [place] Diabetes Association (ADA) provides guidance for cutoff [...] Standards of Medical Care in Diabetes 2016, [place] [employer]. Diabetes Care. 2016.39(Suppl 1). Performed By: #### 2 4323-8 ####[facility] [id number] [facility] [place] [address] [place] Potassium [Moles/Vol] 4.6 mmol/L Normal 3.7-5.[address] [facility] Comment on above: Order Comment: Speci men Type: BLOOD SPECIMENOrdering Facility: [facility] [place] Address: [address] [place] [address] Performed By: #### 2 4323-8 ####[facility] [id number] [place] [address] [place] Protein [Mass/Vol] 6.4 g/dL Normal 6.3-8.0 [facility] Comment on above: Order Comment: Speci men Type: BLOOD SPECIMENOrdering Facility: [facility] [place] Address: [address] [place] [address] Performed By: #### 2 4323-8 ####[facility] [id number] [place] [address] [place] Sodium [Moles/Vol] 142 mmol/L Normal 136-144 [facility] Comment on above: Order Comment: Speci men Type: BLOOD SPECIMENOrdering Facility: [facility] [place] Address: [address] [place] [address] Performed By: #### 2 4323-8 ####[facility] [id number] [place] [address] [place] Urea nitrogen [Mass/Vol] 23 mg/dL High 7-[address] [facility] Comment on above: Order Comment: Speci men Type: BLOOD SPECIMENOrdering Facility: [facility] [place] Address: [address] [place], [place] [address] Performed By: #### 2 4323-8 ####[facility] [id number] [place] [address] [place] VITAMIN D 25 HYDROXYon 04-21 25-hydroxyvitamin D3 [Mass/Vol] 62.4 ng/mL 31.0 - 80.0 ng/mL [facility] Comment on above: Classification of 25 [place] Vitamin D status: Deficiency/Insufficiency: < or = 30 ng/ml. Sufficiency/Optimal Levels: 31-80 ng/mL Toxicity: > 100 ng/mL. Test performed by chemiluminescent immunoassay. CORNEAL TOPOGRAPHY PENTACAM OU (BOTH EYES)on 03-23-2024 [facility] Radiology Study observation (narrative) [facility] OCT MACULA CIRRUS OU (BOTH E YES)on 03-23-2024 [facility] Radiology Study observation (narrative) [facility] CBC W Auto Differential pane l (Bld)on 03-03-2024 Basophils (Bld) [#/Vol] 0.04 10*3/uL [employer] [facility] Basophils/100 WBC (Bld) 0.5 % [facility] Differential cell count method Nom (Bld) Auto [facility] Eosinophils (Bld) [#/Vol] 0.55 10*3/uL High [employer] [facility] Eosinophils/100 WBC (Bld) 7.1 % [facility] Erythrocyte distribution width (RBC) [Ratio] 13.0 % 11.5 - 15.0 % [facility] Hematocrit (Bld) [Volume fraction] 41.7 % 36.0 - 46.0 % [facility] Hemoglobin (Bld) [Mass/Vol] 13.5 g/dL 11.5 - 15.5 g/dL [facility] Immature granulocytes (Bld) [#/Vol] [employer] Immature granulocytes/100 WBC (Bld) 0.3 % [facility] Interpretation and review of laboratory results Abnormal [facility] Lymphocytes (Bld) [#/Vol] 1.93 10*3/uL [facility] Lymphocytes/100 WBC (Bld) 25.1 % [facility] MCH (RBC) [Entitic mass] 32.2 pg 26.0 - 34.0 pg [facility] MCHC (RBC) [Mass/Vol] 32.4 g/dL 30.5 - 36.0 g/dL [facility] MCV (RBC) [Entitic vol] 99.5 fL 80.0 - 100.0 fL [facility] Monocytes (Bld) [#/Vol] 0.65 10*3/uL [employer] [facility] Monocytes/100 WBC (Bld) 8.4 % [facility] Neutrophils (Bld) [#/Vol] 4.51 10*3/uL [facility] Neutrophils/100 WBC (Bld) 58.6 % [facility] Nucleated RBC (Bld) [#/Vol] [employer] [facility] Nucleated RBC/100 WBC (Bld) [Ratio] 0.0 % /100 WBC [facility] Platelet mean volume (Bld) [Entitic vol] 9.6 fL 9.0 - 12.7 fL [facility] Platelets (Bld) [#/Vol] 291 10*3/uL [facility] RBC (Bld) [#/Vol] 4.19 10*6/uL 3.90 - 5.20 m/uL [facility] WBC (Bld) [#/Vol] 7.70 10*3/uL [facility] CT CTA CHESTon 02-15-2024 CT CTA [...] Son MD on 02/15/2024 8:48 PM Normal [facility] BILIRUBIN, CONJUGATEDon 12-25 Bilirubin.conjugated [Mass/Vol] mg/dL [facility] - 0.2 mg/dL [facility] Bilirubin.conjugated [Mass/V ol]on 01-21-2024 Interpretation and review of laboratory results Normal [facility] CBC W Auto Differential pane l (Bld)on 01-21-2024 Basophils (Bld) [#/Vol] 0.03 10*3/uL [facility] Basophils/100 WBC (Bld) 0.5 % [facility] Differential cell count method Nom (Bld) Auto [facility] Eosinophils (Bld) [#/Vol] 0.13 10*3/uL [facility] Eosinophils/100 WBC (Bld) 2.0 % [facility] Erythrocyte distribution width (RBC) [Ratio] 18.0 % High 11.5 - 15.0 % [facility] Hematocrit (Bld) [Volume fraction] 38.5 % 36.0 - 46.0 % [facility] Hemoglobin (Bld) [Mass/Vol] 12.5 g/dL 11.5 - 15.5 g/dL [facility] Immature granulocytes (Bld) [#/Vol] 0.03 10*3/uL [facility] Immature granulocytes/100 WBC (Bld) 0.5 % [facility] Interpretation and review of laboratory results Abnormal [facility] Lymphocytes (Bld) [#/Vol] 1.59 10*3/uL [facility] Lymphocytes/100 WBC (Bld) 24.9 % [facility] MCH (RBC) [Entitic mass] 32.1 pg 26.0 - 34.0 pg [facility] MCHC (RBC) [Mass/Vol] 32.5 g/dL 30.5 - 36.0 g/dL [facility] MCV (RBC) [Entitic vol] 99.0 fL 80.0 - 100.0 fL [facility] Monocytes (Bld) [#/Vol] 0.52 10*3/uL [facility] Monocytes/100 WBC (Bld) 8.2 % [facility] Neutrophils (Bld) [#/Vol] 4.08 10*3/uL [facility] Neutrophils/100 WBC (Bld) 63.9 % [facility] Nucleated RBC (Bld) [#/Vol] NINF [facility] Nucleated RBC/100 WBC (Bld) [Ratio] 0.0 % /100 WBC [facility] Platelet mean volume (Bld) [Entitic vol] 9.0 fL 9.0 - 12.7 fL [facility] Platelets (Bld) [#/Vol] 449 10*3/uL High [facility] RBC (Bld) [#/Vol] 3.89 10*6/uL Low 3.90 - 5.20 m/uL [facility] WBC (Bld) [#/Vol] 6.38 10*3/uL [facility] Comprehensive metabolic 2000 panelOrdered By: Faviola Moreno on 01-21-2024 Albumin [Mass/Vol] 4.3 g/dL 3.9 - 4.9 g/dL [facility] ALP [Catalytic activity/Vol] 97 U/L 34 - 123 U/L [facility] ALT [Catalytic activity/Vol] 83 U/L High 7 - 38 U/L [facility] Anion gap [Moles/Vol] 11 mmol/L 9 - 18 mmol/L [facility] AST [Catalytic activity/Vol] 47 U/L High 13 - 35 U/L [facility] Bilirubin [Mass/Vol] 0.4 mg/dL 0.2 - 1 .3 mg/dL [facility] Calcium [Mass/Vol] 10.2 mg/dL 8.5 - 10. 2 mg/dL [facility] Chloride [Moles/Vol] 104 mmol/L 97 - 10 5 mmol/L [facility] CO2 [Moles/Vol] 25 mmol/L 22 - 30 mmol/L [facility] Creatinine [Mass/Vol] 1.13 mg/dL High 0.58 - 0.96 mg/dL [facility] GFR/1.73 sq M.predicted among non-blacks MDRD (S/P/Bld) [Vol rate/Area] 53 mL/min/{1.73_m2} Low - PINF [facility] Comment on above: Estimated Glomerular Filtration [...] 154 mg/dL High 74 - 99 mg/dL [facility] Comment on above: The [place] Diab[employer] s Association (ADA) provides guidance for [...] Standards of Medical Care in Diabetes 2016, [place] [employer] Association. Diabetes Care. 2016.39(Suppl 1). Interpretation and review of laboratory results Abnormal [facility] Potassium [Moles/Vol] 4.2 mmol/L 3.7 - 5.1 mmol/L [facility] Protein [Mass/Vol] 7.1 g/dL 6.3 - 8.0 g/dL [facility] Sodium [Moles/Vol] 140 mmol/L 136 - 144 mmol/L [facility] Urea nitrogen [Mass/Vol] 17 mg/dL 7 - 21 mg/dL [facility] COMPREHENSIVE METABOLIC PANE Lito 01-17-2024 Albumin [Mass/Vol] 4.0 g/dL Normal 3.2-5.3 [facility] Comment on above: Performed By: #### C MP #### [facility] ([id number]) [address], [address] [place] [address] ALP [Catalytic activity/Vol] 82 U/L Normal 39-130 [facility] Comment on above: Performed By: #### C MP #### [facility] ([id number]) [address] [place] [address] ALT [Catalytic activity/Vol] 107 U/L High 0-31 [facility] Comment on above: Performed By: #### C MP #### [facility] ([id number]) [address], [address] [place] [address] Anion gap [Moles/Vol] 12 mmol/L Normal 5-15 [facility] Comment on above: Performed By: #### C MP #### [facility] ([id number]) [address], [address] [place] [address] AST [Catalytic activity/Vol] 46 U/L High 0-41 [facility] Comment on above: Performed By: #### C MP #### [facility] ([id number]) [address], [address] [place] [address] Bilirubin [Mass/Vol] 0.3 mg/dL Normal 0.3-1.2 [facility] Comment on above: Performed By: #### C MP #### [facility] ([id number]) [address], [address] [place] [address] Calcium [Mass/Vol] 9.3 mg/dL Normal 8.5-10.5 [facility] Comment on above: Performed By: #### C MP #### [facility] ([id number]) [address], [address] [place] [address] Chloride [Moles/Vol] 104 mmol/L Normal 98-109 [facility] Comment on above: Performed By: #### C MP #### [facility] ([id number]) [address], [address] [place] [address] CO2 [Moles/Vol] 25 mmol/L Normal 22-32 [facility] Comment on above: Performed By: #### C MP #### [facility] ([id number]) [address], [address] [place] [address] Creatinine [Mass/Vol] 1.08 mg/dL High 0.40-1.00 [facility] Comment on above: Result Comment: METH OD TRACEABLE TO IDMS STANDARD Performed By: #### C MP #### [facility] ([id number]) [address], [address] [place] [address] GFR/1.73 sq M.predicted among non-blacks MDRD (S/P/Bld) [Vol rate/Area] 56 mL/min/{1.73_m2} Low >59 [facility] Comment on above: Result Comment: Reported eGFR is based on the CKD-EPI 2020 equation that does not use a race coefficient. Performed By: #### C MP #### [facility] ([id number]) [address] [place] [address] Glucose [Mass/Vol] 134 mg/dL High 65-99 [facility] Comment on above: Performed By: #### C MP #### [facility] ([id number]) [address] [place] [address] Potassium [Moles/Vol] 4.0 mmol/L Normal 3.5-5.0 [facility] Comment on above: Performed By: #### C MP #### [facility] ([id number]) [address], [address] [place] [address] Protein [Mass/Vol] 6.6 g/dL Normal 6.0-8.0 [facility] Comment on above: Performed By: #### C MP #### [facility] ([id number]) [address], [address] [place] [address] Sodium [Moles/Vol] 141 mmol/L Normal 134-146 [facility] Comment on above: Performed By: #### C MP #### [facility] ([id number]) [address], [address] [place] [address] Urea nitrogen [Mass/Vol] 14 mg/dL Normal 5-27 [facility] Comment on above: Performed By: #### C MP #### [facility] ([id number]) [address], [address] [place] [address] CBC W Auto Differential pane l (Bld)on 01-14-2024 Basophils (Bld) [#/Vol] 0.04 10*3/uL [facility] Basophils/100 WBC (Bld) 0.9 % [facility] Differential cell count method Nom (Bld) Auto [facility] Eosinophils (Bld) [#/Vol] 0.13 10*3/uL [facility] Eosinophils/100 WBC (Bld) 3.0 % [facility] Erythrocyte distribution width (RBC) [Ratio] 17.6 % High 11.5 - 15.0 % [facility] Hematocrit (Bld) [Volume fraction] 35.4 % Low 36.0 - 46.0 % [facility] Hemoglobin (Bld) [Mass/Vol] 11.4 g/dL Low 11.5 - 15.5 g/dL [facility] Immature granulocytes (Bld) [#/Vol] [facility] Immature granulocytes/100 WBC (Bld) 0.5 % [facility] Interpretation and review of laboratory results Abnormal [facility] Lymphocytes (Bld) [#/Vol] 1.27 10*3/uL [facility] Lymphocytes/100 WBC (Bld) 28.9 % [facility] MCH (RBC) [Entitic mass] 31.6 pg 26.0 - 34.0 pg [facility] MCHC (RBC) [Mass/Vol] 32.2 g/dL 30.5 - 36.0 g/dL [facility] MCV (RBC) [Entitic vol] 98.1 fL 80.0 - 100.0 fL [facility] Monocytes (Bld) [#/Vol] 0.35 10*3/uL [facility] Monocytes/100 WBC (Bld) 8.0 % [facility] Neutrophils (Bld) [#/Vol] 2.58 10*3/uL [facility] Neutrophils/100 WBC (Bld) 58.7 % [facility] Nucleated RBC (Bld) [#/Vol] [facility] Nucleated RBC/100 WBC (Bld) [Ratio] 0.0 % /100 WBC [facility] Platelet mean volume (Bld) [Entitic vol] 9.4 fL 9.0 - 12.7 fL [facility] Platelets (Bld) [#/Vol] 397 10*3/uL [facility] RBC (Bld) [#/Vol] 3.61 10*6/uL Low 3.90 - 5.20 m/uL [facility] WBC (Bld) [#/Vol] 4.39 10*3/uL [facility] Comprehensive metabolic 2000 panelOrdered By: Lebron Pederson on 01-14-2024 Albumin [Mass/Vol] 3.9 g/dL 3.9 - 4.9 g/dL [facility] ALP [Catalytic activity/Vol] 91 U/L 34 - 123 U/L [facility] ALT [Catalytic activity/Vol] 139 U/L High 7 - 38 U/L [facility] Anion gap [Moles/Vol] 11 mmol/L 9 - 18 mmol/L [facility] AST [Catalytic activity/Vol] 118 U/L High 13 - 35 U/L [facility] Bilirubin [Mass/Vol] 0.2 mg/dL 0.2 - 1 .3 mg/dL [facility] Calcium [Mass/Vol] 9.6 mg/dL 8.5 - 10. 2 mg/dL [facility] Chloride [Moles/Vol] 103 mmol/L 97 - 10 5 mmol/L [facility] CO2 [Moles/Vol] 24 mmol/L 22 - 30 mmol/L [facility] Creatinine [Mass/Vol] 1.15 mg/dL High 0.58 - 0.96 mg/dL [facility] GFR/1.73 sq M.predicted among non-blacks MDRD (S/P/Bld) [Vol rate/Area] 52 mL/min/{1.73_m2} Low - PINF [facility] Comment on above: Estimated Glomerular Filtration [...] 169 mg/dL High 74 - 99 mg/dL [facility] Comment on above: The [place] Di[employer] Association (ADA) provides guidance for [...] Standards of Medical Care in Diabetes 2016, [place] [employer]. Diabetes Care. 2016.39(Suppl 1). Interpretation and review of laboratory results Abnormal [facility] Potassium [Moles/Vol] 4.3 mmol/L 3.7 - 5.1 mmol/L [facility] Protein [Mass/Vol] 6.4 g/dL 6.3 - 8.0 g/dL [facility] Sodium [Moles/Vol] 138 mmol/L 136 - 144 mmol/L [facility] Urea nitrogen [Mass/Vol] 16 mg/dL 7 - 21 mg/dL [facility] CBC W Auto Differential pane l (Bld)on 01-07-2024 Basophils (Bld) [#/Vol] 0.03 10*3/uL [facility] Basophils/100 WBC (Bld) 0.4 % [facility] Differential cell count method Nom (Bld) Auto [facility] Eosinophils (Bld) [#/Vol] 0.24 10*3/uL [facility] Eosinophils/100 WBC (Bld) 3.2 % [facility] Erythrocyte distribution width (RBC) [Ratio] 18.1 % High 11.5 - 15.0 % [facility] Hematocrit (Bld) [Volume fraction] 33.5 % Low 36.0 - 46.0 % [facility] Hemoglobin (Bld) [Mass/Vol] 11.0 g/dL Low 11.5 - 15.5 g/dL [facility] Immature granulocytes (Bld) [#/Vol] 0.03 10*3/uL [facility] Immature granulocytes/100 WBC (Bld) 0.4 % [facility] Interpretation and review of laboratory results Abnormal [facility] Lymphocytes (Bld) [#/Vol] 0.98 10*3/uL Low [facility] Lymphocytes/100 WBC (Bld) 13.0 % [facility] MCH (RBC) [Entitic mass] 31.9 pg 26.0 - 34.0 pg [facility] MCHC (RBC) [Mass/Vol] 32.8 g/dL 30.5 - 36.0 g/dL [facility] MCV (RBC) [Entitic vol] 97.1 fL 80.0 - 100.0 fL [facility] Monocytes (Bld) [#/Vol] 0.31 10*3/uL NINF [facility] Monocytes/100 WBC (Bld) 4.1 % [facility] Neutrophils (Bld) [#/Vol] 5.93 10*3/uL [facility] Neutrophils/100 WBC (Bld) 78.9 % [facility] Nucleated RBC (Bld) [#/Vol] NINF [facility] Nucleated RBC/100 WBC (Bld) [Ratio] 0.0 % /100 WBC [facility] Platelet mean volume (Bld) [Entitic vol] 9.8 fL 9.0 - 12.7 fL [facility] Platelets (Bld) [#/Vol] 320 10*3/uL [facility] RBC (Bld) [#/Vol] 3.45 10*6/uL Low 3.90 - 5.20 m/uL [facility] WBC (Bld) [#/Vol] 7.52 10*3/uL [facility] Comprehensive metabolic 2000 panelOrdered By: Jennifer Rosa on 01-07-2024 Albumin [Mass/Vol] 4.0 g/dL 3.9 - 4.9 g/dL [facility] ALP [Catalytic activity/Vol] 100 U/L 34 - 123 U/L [facility] ALT [Catalytic activity/Vol] 29 U/L 7 - 38 U/L [facility] Anion gap [Moles/Vol] 9 mmol/L 9 - 18 mmol/L [facility] AST [Catalytic activity/Vol] 16 U/L 13 - 35 U/L [facility] Bilirubin [Mass/Vol] 0.4 mg/dL 0.2 - 1 .3 mg/dL [facility] Calcium [Mass/Vol] 9.7 mg/dL 8.5 - 10. 2 mg/dL [facility] Chloride [Moles/Vol] 101 mmol/L 97 - 10 5 mmol/L [facility] CO2 [Moles/Vol] 28 mmol/L 22 - 30 mmol/L [facility] Creatinine [Mass/Vol] 1.23 mg/dL High 0.58 - 0.96 mg/dL [facility] GFR/1.73 sq M.predicted among non-blacks MDRD (S/P/Bld) [Vol rate/Area] 48 mL/min/{1.73_m2} Low - PINF [facility] Comment on above: Estimated Glomerular Filtration [...] 154 mg/dL High 74 - 99 mg/dL [facility] Comment on above: The [place] [employer] (ADA) provides guidance for [...] Standards of Medical Care in Diabetes 2016, [place] [employer]. Diabetes Care. 2016.39(Suppl 1). Interpretation and review of laboratory results Abnormal [facility] Potassium [Moles/Vol] 4.5 mmol/L 3.7 - 5.1 mmol/L [facility] Protein [Mass/Vol] 6.8 g/dL 6.3 - 8.0 g/dL [facility] Sodium [Moles/Vol] 138 mmol/L 136 - 144 mmol/L [facility] Urea nitrogen [Mass/Vol] 25 mg/dL High 7 - 21 mg/dL [facility] CBC W Auto Differential pane l (Bld)on 12-31-2023 Basophils (Bld) [#/Vol] 0.03 10*3/uL NINF [facility] Basophils/100 WBC (Bld) 0.5 % [facility] Differential cell count method Nom (Bld) Auto [facility] Eosinophils (Bld) [#/Vol] 0.21 10*3/uL [facility] Eosinophils/100 WBC (Bld) 3.8 % [facility] Erythrocyte distribution width (RBC) [Ratio] 18.6 % High 11.5 - 15.0 % [facility] Hematocrit (Bld) [Volume fraction] 36.5 % 36.0 - 46.0 % [facility] Hemoglobin (Bld) [Mass/Vol] 12.2 g/dL 11.5 - 15.5 g/dL [facility] Immature granulocytes (Bld) [#/Vol] 0.03 10*3/uL [facility] Immature granulocytes/100 WBC (Bld) 0.5 % [facility] Interpretation and review of laboratory results Abnormal [facility] Lymphocytes (Bld) [#/Vol] 1.16 10*3/uL [facility] Lymphocytes/100 WBC (Bld) 20.9 % [facility] MCH (RBC) [Entitic mass] 32.0 pg 26.0 - 34.0 pg [facility] MCHC (RBC) [Mass/Vol] 33.4 g/dL 30.5 - 36.0 g/dL [facility] MCV (RBC) [Entitic vol] 95.8 fL 80.0 - 100.0 fL [facility] Monocytes (Bld) [#/Vol] 0.44 10*3/uL [facility] Monocytes/100 WBC (Bld) 7.9 % [facility] Neutrophils (Bld) [#/Vol] 3.68 10*3/uL [facility] Neutrophils/100 WBC (Bld) 66.4 % [facility] Nucleated RBC (Bld) [#/Vol] [facility] Nucleated RBC/100 WBC (Bld) [Ratio] 0.0 % /100 WBC [facility] Platelet mean volume (Bld) [Entitic vol] 9.2 fL 9.0 - 12.7 fL [facility] Platelets (Bld) [#/Vol] 320 10*3/uL [facility] RBC (Bld) [#/Vol] 3.81 10*6/uL Low 3.90 - 5.20 m/uL [facility] WBC (Bld) [#/Vol] 5.55 10*3/uL [facility] Comprehensive metabolic 2000 panelOrdered By: Jennifer Rosa on 12-31-2023 Albumin [Mass/Vol] 4.1 g/dL 3.9 - 4.9 g/dL [facility] ALP [Catalytic activity/Vol] 99 U/L 34 - 123 U/L [facility] ALT [Catalytic activity/Vol] 37 U/L 7 - 38 U/L [facility] Anion gap [Moles/Vol] 10 mmol/L 9 - 18 mmol/L [facility] AST [Catalytic activity/Vol] 22 U/L 13 - 35 U/L [facility] Bilirubin [Mass/Vol] 0.6 mg/dL 0.2 - 1 .3 mg/dL [facility] Calcium [Mass/Vol] 9.3 mg/dL 8.5 - 10. 2 mg/dL [facility] Chloride [Moles/Vol] 103 mmol/L 97 - 10 5 mmol/L [facility] CO2 [Moles/Vol] 27 mmol/L 22 - 30 mmol/L [facility] Creatinine [Mass/Vol] 1.16 mg/dL High 0.58 - 0.96 mg/dL [facility] GFR/1.73 sq M.predicted among non-blacks MDRD (S/P/Bld) [Vol rate/Area] 51 mL/min/{1.73_m2} Low - PINF [facility] Comment on above: Estimated Glomerular Filtration [...] 131 mg/dL High 74 - 99 mg/dL [facility] Comment on above: The [place] [employer] (ADA) provides guidance for [...] Standards of Medical Care in Diabetes 2016, [place] [employer]. Diabetes Care. 2016.39(Suppl 1). Interpretation and review of laboratory results Abnormal [facility] Potassium [Moles/Vol] 4.1 mmol/L 3.7 - 5.1 mmol/L [facility] Protein [Mass/Vol] 6.5 g/dL 6.3 - 8.0 g/dL [facility] Sodium [Moles/Vol] 140 mmol/L 136 - 144 mmol/L [facility] Urea nitrogen [Mass/Vol] 23 mg/dL High 7 - 21 mg/dL [facility] CBC W Auto Differential pane l (Bld)on 12-24-2023 Basophils (Bld) [#/Vol] 0.04 10*3/uL [facility] [employer] [facility] Basophils/100 WBC (Bld) 0.7 % [facility] Differential cell count method Nom (Bld) Auto [facility] Eosinophils (Bld) [#/Vol] 0.18 10*3/uL [facility] Eosinophils/100 WBC (Bld) 3.0 % [facility] Erythrocyte distribution width (RBC) [Ratio] 18.4 % High 11.5 - 15.0 % [facility] Hematocrit (Bld) [Volume fraction] 35.8 % Low 36.0 - 46.0 % [facility] Hemoglobin (Bld) [Mass/Vol] 11.9 g/dL 11.5 - 15.5 g/dL [facility] Immature granulocytes (Bld) [#/Vol] [employer] [facility] Immature granulocytes/100 WBC (Bld) 0.3 % [facility] Interpretation and review of laboratory results Abnormal [facility] Lymphocytes (Bld) [#/Vol] 1.25 10*3/uL [facility] Lymphocytes/100 WBC (Bld) 20.6 % [facility] MCH (RBC) [Entitic mass] 31.6 pg 26.0 - 34.0 pg [facility] MCHC (RBC) [Mass/Vol] 33.2 g/dL 30.5 - 36.0 g/dL [facility] MCV (RBC) [Entitic vol] 95.2 fL 80.0 - 100.0 fL [facility] Monocytes (Bld) [#/Vol] 0.57 10*3/uL NINF [facility] Monocytes/100 WBC (Bld) 9.4 % [facility] Neutrophils (Bld) [#/Vol] 4.02 10*3/uL [facility] Neutrophils/100 WBC (Bld) 66.0 % [facility] Nucleated RBC (Bld) [#/Vol] NINF [facility] Nucleated RBC/100 WBC (Bld) [Ratio] 0.0 % /100 WBC [facility] Platelet mean volume (Bld) [Entitic vol] 9.2 fL 9.0 - 12.7 fL [facility] Platelets (Bld) [#/Vol] 322 10*3/uL [facility] RBC (Bld) [#/Vol] 3.76 10*6/uL Low 3.90 - 5.20 m/uL [facility] WBC (Bld) [#/Vol] 6.08 10*3/uL [facility] Comprehensive metabolic 2000 panelOrdered By: Lebron Pederson on 12-24-2023 Albumin [Mass/Vol] 4.1 g/dL 3.9 - 4.9 g/dL [facility] ALP [Catalytic activity/Vol] 98 U/L 34 - 123 U/L [facility] ALT [Catalytic activity/Vol] 39 U/L High 7 - 38 U/L [facility] Anion gap [Moles/Vol] 12 mmol/L 9 - 18 mmol/L [facility] AST [Catalytic activity/Vol] 26 U/L 13 - 35 U/L [facility] Bilirubin [Mass/Vol] 0.4 mg/dL 0.2 - 1 .3 mg/dL [facility] Calcium [Mass/Vol] 9.4 mg/dL 8.5 - 10. 2 mg/dL [facility] Chloride [Moles/Vol] 104 mmol/L 97 - 10 5 mmol/L [facility] CO2 [Moles/Vol] 27 mmol/L 22 - 30 mmol/L [facility] Creatinine [Mass/Vol] 1.12 mg/dL High 0.58 - 0.96 mg/dL [facility] GFR/1.73 sq M.predicted among non-blacks MDRD (S/P/Bld) [Vol rate/Area] 53 mL/min/{1.73_m2} Low - PINF [facility] Comment on above: Estimated Glomerular Filtration [...] 152 mg/dL High 74 - 99 mg/dL [facility] Comment on above: The [place] [employer] (ADA) provides guidance for [...] Standards of Medical Care in Diabetes 2016, [place] [employer]. Diabetes Care. 2016.39(Suppl 1). Interpretation and review of laboratory results Abnormal [facility] Potassium [Moles/Vol] 4.0 mmol/L 3.7 - 5.1 mmol/L [facility] Protein [Mass/Vol] 6.7 g/dL 6.3 - 8.0 g/dL [facility] Sodium [Moles/Vol] 143 mmol/L 136 - 144 mmol/L [facility] Urea nitrogen [Mass/Vol] 23 mg/dL High 7 - 21 mg/dL [facility] CBC W Auto Differential pane l (Bld)on 12-10-2023 Basophils (Bld) [#/Vol] 0.06 10*3/uL <0.11 k/uL [facility] Basophils/100 WBC (Bld) 0.8 % [facility] Differential cell count method Nom (Bld) Auto [facility] Eosinophils (Bld) [#/Vol] 0.69 10*3/uL High <0.46 k/uL [facility] Eosinophils/100 WBC (Bld) 9.1 % [facility] Erythrocyte distribution width (RBC) [Ratio] 16.7 % High 11.5 - 15.0 % [facility] Hematocrit (Bld) [Volume fraction] 33.6 % Low 36.0 - 46.0 % [facility] Hemoglobin (Bld) [Mass/Vol] 11.0 g/dL Low 11.5 - 15.5 g/dL [facility] Immature granulocytes (Bld) [#/Vol] 0.04 10*3/uL <0.10 k/uL [facility] Immature granulocytes/100 WBC (Bld) 0.5 % [facility] Lymphocytes (Bld) [#/Vol] 1.35 10*3/uL 1.00 - 4.00 k/uL [facility] Lymphocytes/100 WBC (Bld) 17.9 % [facility] MCH (RBC) [Entitic mass] 30.6 pg 26.0 - 34.0 pg [facility] MCHC (RBC) [Mass/Vol] 32.7 g/dL 30.5 - 36.0 g/dL [facility] MCV (RBC) [Entitic vol] 93.6 fL 80.0 - 100.0 fL [facility] Monocytes (Bld) [#/Vol] 0.32 10*3/uL <0.87 k/uL [facility] Monocytes/100 WBC (Bld) 4.2 % [facility] Neutrophils (Bld) [#/Vol] 5.10 10*3/uL 1.45 - 7.50 k/uL [facility] Neutrophils/100 WBC (Bld) 67.5 % [facility] Nucleated RBC (Bld) [#/Vol] <0.01 k/uL [facility] Nucleated RBC/100 WBC (Bld) [Ratio] 0.0 /100 WBC [facility] Platelet mean volume (Bld) [Entitic vol] 9.9 fL 9.0 - 12.7 fL [facility] Platelets (Bld) [#/Vol] 335 10*3/uL 150 - 400 k/uL [facility] RBC (Bld) [#/Vol] 3.59 10*6/uL Low 3.90 - 5.20 m/uL [facility] WBC (Bld) [#/Vol] 7.56 10*3/uL 3.70 - 11.00 k/uL [facility] Comprehensive metabolic 2000 panelon 12-10-2023 Albumin [Mass/Vol] 4.0 g/dL 3.9 - 4.9 g/dL [facility] ALP [Catalytic activity/Vol] 101 U/L 34 - 123 U/L [facility] ALT [Catalytic activity/Vol] 28 U/L 7 - 38 U/L [facility] Anion gap [Moles/Vol] 12 mmol/L 9 - 18 mmol/L [facility] AST [Catalytic activity/Vol] 17 U/L 13 - 35 U/L [facility] Bilirubin [Mass/Vol] 0.3 mg/dL 0.2 - 1 .3 mg/dL [facility] Calcium [Mass/Vol] 10.0 mg/dL 8.5 - 10. 2 mg/dL [facility] Chloride [Moles/Vol] 107 mmol/L High 97 - 10 5 mmol/L [facility] CO2 [Moles/Vol] 24 mmol/L 22 - 30 mmol/L [facility] Creatinine [Mass/Vol] 1.25 mg/dL High 0.58 - 0.96 mg/dL [facility] Estimated Glomerular Filtration Rate 47 mL/min/1.73m Low >=60 mL/min/1.7 3m [facility] Glucose [Mass/Vol] 159 mg/dL High 74 - 99 mg/dL [facility] Potassium [Moles/Vol] 5.0 mmol/L 3.7 - 5.1 mmol/L [facility] Protein [Mass/Vol] 6.6 g/dL 6.3 - 8.0 g/dL [facility] Sodium [Moles/Vol] 143 mmol/L 136 - 144 mmol/L [facility] Urea nitrogen [Mass/Vol] 28 mg/dL High 7 - 21 mg/dL [facility] CBC W Auto Differential pane l (Bld)on 12-03-2023 Basophils (Bld) [#/Vol] 0.11 10*3/uL High <0.11 k/uL [facility] Basophils/100 WBC (Bld) 1.9 % [facility] Differential cell count method Nom (Bld) Auto [facility] Eosinophils (Bld) [#/Vol] 0.21 10*3/uL <0.46 k/uL [facility] Eosinophils/100 WBC (Bld) 3.6 % [facility] Erythrocyte distribution width (RBC) [Ratio] 16.6 % High 11.5 - 15.0 % [facility] Hematocrit (Bld) [Volume fraction] 33.9 % Low 36.0 - 46.0 % [facility] Hemoglobin (Bld) [Mass/Vol] 11.3 g/dL Low 11.5 - 15.5 g/dL [facility] Immature granulocytes (Bld) [#/Vol] 0.03 10*3/uL <0.10 k/uL [facility] Immature granulocytes/100 WBC (Bld) 0.5 % [facility] Lymphocytes (Bld) [#/Vol] 1.19 10*3/uL 1.00 - 4.00 k/uL [facility] Lymphocytes/100 WBC (Bld) 20.4 % [facility] MCH (RBC) [Entitic mass] 31.0 pg 26.0 - 34.0 pg [facility] MCHC (RBC) [Mass/Vol] 33.3 g/dL 30.5 - 36.0 g/dL [facility] MCV (RBC) [Entitic vol] 92.9 fL 80.0 - 100.0 fL [facility] Monocytes (Bld) [#/Vol] 0.54 10*3/uL <0.87 k/uL [facility] Monocytes/100 WBC (Bld) 9.2 % [facility] Neutrophils (Bld) [#/Vol] 3.76 10*3/uL 1.45 - 7.50 k/uL [facility] Neutrophils/100 WBC (Bld) 64.4 % [facility] Nucleated RBC (Bld) [#/Vol] <0.01 k/uL [facility] Nucleated RBC/100 WBC (Bld) [Ratio] 0.0 /100 WBC [facility] Platelet mean volume (Bld) [Entitic vol] 9.3 fL 9.0 - 12.7 fL [facility] Platelets (Bld) [#/Vol] 556 10*3/uL High 150 - 400 k/uL [facility] RBC (Bld) [#/Vol] 3.65 10*6/uL Low 3.90 - 5.20 m/uL [facility] WBC (Bld) [#/Vol] 5.84 10*3/uL 3.70 - 11.00 k/uL [facility] Comprehensive metabolic 2000 panelon 12-03-2023 Albumin [Mass/Vol] 4.4 g/dL 3.9 - 4.9 g/dL [facility] ALP [Catalytic activity/Vol] 104 U/L 34 - 123 U/L [facility] ALT [Catalytic activity/Vol] 31 U/L 7 - 38 U/L [facility] Anion gap [Moles/Vol] 13 mmol/L 9 - 18 mmol/L [facility] AST [Catalytic activity/Vol] 25 U/L 13 - 35 U/L [facility] Bilirubin [Mass/Vol] 0.3 mg/dL 0.2 - 1 .3 mg/dL [facility] Calcium [Mass/Vol] 10.0 mg/dL 8.5 - 10. 2 mg/dL [facility] Chloride [Moles/Vol] 100 mmol/L 97 - 10 5 mmol/L [facility] CO2 [Moles/Vol] 27 mmol/L 22 - 30 mmol/L [facility] Creatinine [Mass/Vol] 1.59 mg/dL High 0.58 - 0.96 mg/dL [facility] Estimated Glomerular Filtration Rate 35 mL/min/1.73m Low >=60 mL/min/1.7 3m [facility] Glucose [Mass/Vol] 156 mg/dL High 74 - 99 mg/dL [facility] Potassium [Moles/Vol] 4.4 mmol/L 3.7 - 5.1 mmol/L [facility] Protein [Mass/Vol] 7.0 g/dL 6.3 - 8.0 g/dL [facility] Sodium [Moles/Vol] 140 mmol/L 136 - 144 mmol/L [facility] Urea nitrogen [Mass/Vol] 33 mg/dL High 7 - 21 mg/dL [facility] CBC W Auto Differential pane l (Bld)on 11-26-2023 Basophils (Bld) [#/Vol] 0.07 10*3/uL <0.11 k/uL [facility] Basophils/100 WBC (Bld) 1.0 % [facility] Differential cell count method Nom (Bld) Auto [facility] Eosinophils (Bld) [#/Vol] 0.05 10*3/uL <0.46 k/uL [facility] Eosinophils/100 WBC (Bld) 0.7 % [facility] Erythrocyte distribution width (RBC) [Ratio] 16.2 % High 11.5 - 15.0 % [facility] Hematocrit (Bld) [Volume fraction] 32.4 % Low 36.0 - 46.0 % [facility] Hemoglobin (Bld) [Mass/Vol] 10.6 g/dL Low 11.5 - 15.5 g/dL [facility] Immature granulocytes (Bld) [#/Vol] 0.04 10*3/uL <0.10 k/uL [facility] Immature granulocytes/100 WBC (Bld) 0.6 % [facility] Lymphocytes (Bld) [#/Vol] 1.04 10*3/uL 1.00 - 4.00 k/uL [facility] Lymphocytes/100 WBC (Bld) 15.2 % [facility] MCH (RBC) [Entitic mass] 30.6 pg 26.0 - 34.0 pg [facility] MCHC (RBC) [Mass/Vol] 32.7 g/dL 30.5 - 36.0 g/dL [facility] MCV (RBC) [Entitic vol] 93.6 fL 80.0 - 100.0 fL [facility] Monocytes (Bld) [#/Vol] 0.47 10*3/uL <0.87 k/uL [facility] Monocytes/100 WBC (Bld) 6.9 % [facility] Neutrophils (Bld) [#/Vol] 5.18 10*3/uL 1.45 - 7.50 k/uL [facility] Neutrophils/100 WBC (Bld) 75.6 % [facility] Nucleated RBC (Bld) [#/Vol] <0.01 k/uL [facility] Nucleated RBC/100 WBC (Bld) [Ratio] 0.0 /100 WBC [facility] Platelet mean volume (Bld) [Entitic vol] 9.0 fL 9.0 - 12.7 fL [facility] Platelets (Bld) [#/Vol] 513 10*3/uL High 150 - 400 k/uL [facility] RBC (Bld) [#/Vol] 3.46 10*6/uL Low 3.90 - 5.20 m/uL [facility] WBC (Bld) [#/Vol] 6.85 10*3/uL 3.70 - 11.00 k/uL [facility] Comprehensive metabolic 2000 panelon 11-26-2023 Albumin [Mass/Vol] 4.1 g/dL 3.9 - 4.9 g/dL [facility] ALP [Catalytic activity/Vol] 105 U/L 34 - 123 U/L [facility] ALT [Catalytic activity/Vol] 24 U/L 7 - 38 U/L [facility] Anion gap [Moles/Vol] 14 mmol/L 9 - 18 mmol/L [facility] AST [Catalytic activity/Vol] 20 U/L 13 - 35 U/L [facility] Bilirubin [Mass/Vol] 0.2 mg/dL 0.2 - 1 .3 mg/dL [facility] Calcium [Mass/Vol] 10.0 mg/dL 8.5 - 10. 2 mg/dL [facility] Chloride [Moles/Vol] 105 mmol/L 97 - 10 5 mmol/L [facility] CO2 [Moles/Vol] 28 mmol/L 22 - 30 mmol/L [facility] Creatinine [Mass/Vol] 1.35 mg/dL High 0.58 - 0.96 mg/dL [facility] Estimated Glomerular Filtration Rate 43 mL/min/1.73m Low >=60 mL/min/1.7 3m [facility] Glucose [Mass/Vol] 160 mg/dL High 74 - 99 mg/dL [facility] Potassium [Moles/Vol] 4.5 mmol/L 3.7 - 5.1 mmol/L [facility] Protein [Mass/Vol] 6.5 g/dL 6.3 - 8.0 g/dL [facility] Sodium [Moles/Vol] 147 mmol/L High 136 - 144 mmol/L [facility] Urea nitrogen [Mass/Vol] 18 mg/dL 7 - 21 mg/dL [facility] CT CTA CHESTon 11-05-2023 CT CTA [...] Garza DO on 11/05/2023 3:07 PM Normal [facility] Comprehensive metabolic 2000 panelon 11-05-2023 Albumin [Mass/Vol] 3.9 g/dL 3.9 - 4.9 g/dL [facility] ALP [Catalytic activity/Vol] 124 U/L High 34 - 123 U/L [facility] ALT [Catalytic activity/Vol] 29 U/L 7 - 38 U/L [facility] Anion gap [Moles/Vol] 15 mmol/L 9 - 18 mmol/L [facility] AST [Catalytic activity/Vol] 18 U/L 13 - 35 U/L [facility] Bilirubin [Mass/Vol] 0.3 mg/dL 0.2 - 1 .3 mg/dL [facility] Calcium [Mass/Vol] 9.0 mg/dL 8.5 - 10. 2 mg/dL [facility] Chloride [Moles/Vol] 105 mmol/L 97 - 10 5 mmol/L [facility] CO2 [Moles/Vol] 22 mmol/L 22 - 30 mmol/L [facility] Creatinine [Mass/Vol] 0.90 mg/dL 0.58 - 0.96 mg/dL [facility] Estimated Glomerular Filtration Rate 69 mL/min/1.73m >=60 mL/min/1.7 3m [facility] Glucose [Mass/Vol] 186 mg/dL High 74 - 99 mg/dL [facility] Potassium [Moles/Vol] 4.1 mmol/L 3.7 - 5.1 mmol/L [facility] Protein [Mass/Vol] 6.4 g/dL 6.3 - 8.0 g/dL [facility] Sodium [Moles/Vol] 142 mmol/L 136 - 144 mmol/L [facility] Urea nitrogen [Mass/Vol] 12 mg/dL 7 - 21 mg/dL [facility] CBC W Auto Differential pane l (Bld)on 10-22-2023 Basophils (Bld) [#/Vol] 0.04 10*3/uL <0.11 k/uL [facility] Basophils/100 WBC (Bld) 0.3 % [facility] Differential cell count method Nom (Bld) Auto [facility] Eosinophils (Bld) [#/Vol] 0.19 10*3/uL <0.46 k/uL [facility] Eosinophils/100 WBC (Bld) 1.6 % [facility] Erythrocyte distribution width (RBC) [Ratio] 14.3 % 11.5 - 15.0 % [facility] Hematocrit (Bld) [Volume fraction] 42.8 % 36.0 - 46.0 % [facility] Hemoglobin (Bld) [Mass/Vol] 14.0 g/dL 11.5 - 15.5 g/dL [facility] Immature granulocytes (Bld) [#/Vol] 0.05 10*3/uL <0.10 k/uL [facility] Immature granulocytes/100 WBC (Bld) 0.4 % [facility] Lymphocytes (Bld) [#/Vol] 2.04 10*3/uL 1.00 - 4.00 k/uL [facility] Lymphocytes/100 WBC (Bld) 16.8 % [facility] MCH (RBC) [Entitic mass] 30.8 pg 26.0 - 34.0 pg [facility] [facility] MCHC (RBC) [Mass/Vol] 32.7 g/dL 30.5 - 36.0 g/dL [facility] MCV (RBC) [Entitic vol] 94.1 fL 80.0 - 100.0 fL [facility] Monocytes (Bld) [#/Vol] 0.54 10*3/uL <0.87 k/uL [facility] Monocytes/100 WBC (Bld) 4.4 % [facility] Neutrophils (Bld) [#/Vol] 9.30 10*3/uL High 1.45 - 7.50 k/uL [facility] Neutrophils/100 WBC (Bld) 76.5 % [facility] Nucleated RBC (Bld) [#/Vol] <0.01 k/uL [facility] Nucleated RBC/100 WBC (Bld) [Ratio] 0.0 /100 WBC [facility] Platelet mean volume (Bld) [Entitic vol] 9.7 fL 9.0 - 12.7 fL [facility] Platelets (Bld) [#/Vol] 300 10*3/uL 150 - 400 k/uL [facility] RBC (Bld) [#/Vol] 4.55 10*6/uL 3.90 - 5.20 m/uL [facility] WBC (Bld) [#/Vol] 12.16 10*3/uL High 3.70 - 11.00 k/uL [facility] Comprehensive metabolic 2000 panelon 10-22-2023 Albumin [Mass/Vol] 4.1 g/dL 3.9 - 4.9 g/dL [facility] ALP [Catalytic activity/Vol] 117 U/L 34 - 123 U/L [facility] ALT [Catalytic activity/Vol] 32 U/L 7 - 38 U/L [facility] Anion gap [Moles/Vol] 11 mmol/L 9 - 18 mmol/L [facility] AST [Catalytic activity/Vol] 17 U/L 13 - 35 U/L [facility] Bilirubin [Mass/Vol] 0.8 mg/dL 0.2 - 1 .3 mg/dL [facility] Calcium [Mass/Vol] 9.5 mg/dL 8.5 - 10. 2 mg/dL [facility] Chloride [Moles/Vol] 108 mmol/L High 97 - 10 5 mmol/L [facility] CO2 [Moles/Vol] 27 mmol/L 22 - 30 mmol/L [facility] Creatinine [Mass/Vol] 1.01 mg/dL High 0.58 - 0.96 mg/dL [facility] Estimated Glomerular Filtration Rate 61 mL/min/1.73m >=60 mL/min/1.7 3m [facility] Glucose [Mass/Vol] 130 mg/dL High 74 - 99 mg/dL [facility] Potassium [Moles/Vol] 4.2 mmol/L 3.7 - 5.1 mmol/L [facility] Protein [Mass/Vol] 6.4 g/dL 6.3 - 8.0 g/dL [facility] Sodium [Moles/Vol] 146 mmol/L High 136 - 144 mmol/L [facility] Urea nitrogen [Mass/Vol] 21 mg/dL 7 - 21 mg/dL [facility] CBC W Auto Differential pane l (Bld)on 09-20-2023 Basophils (Bld) [#/Vol] 0.04 10*3/uL Normal <0.11 [facility] Comment on above: Order Comment: Speci men Type: BLOOD SPECIMEN Ordering Facility: [facility] [place] Address: [address] [place] [address] Performed By: #### 5 7021-8 #### [facility] CLIA [id number] [address] [place] [address] [place] Basophils/100 WBC (Bld) 0.5 % Normal [facility] Comment on above: Order Comment: Speci men Type: BLOOD SPECIMEN Ordering Facility: [facility] [place] Address: [address] [place] [address] Performed By: #### 5 7021-8 #### [facility] CLIA [id number] [address] [place] [address] [place] Differential cell count method Nom (Bld) Auto Normal [facility] Comment on above: Order Comment: Speci men Type: BLOOD SPECIMEN Ordering Facility: [facility] [place] Address: [address] [place] [address] Performed By: #### 5 7021-8 #### [facility] CLIA [id number] [address] [place] [address] [place] Eosinophils (Bld) [#/Vol] 0.28 10*3/uL Normal <0.46 [facility] Comment on above: Order Comment: Speci men Type: BLOOD SPECIMEN Ordering Facility: [facility] [place] Address: [address] [place] [address] Performed By: #### 5 7021-8 #### [facility] CLIA [id number] [address] [place] [address] [place] Eosinophils/100 WBC (Bld) 3.7 % Normal [facility] Comment on above: Order Comment: Speci men Type: BLOOD SPECIMEN Ordering Facility: [facility] [place] Address: [address] [place] [address] Performed By: #### 5 7021-8 #### [facility] CLIA [id number] [address] [place] [address] [place] Erythrocyte distribution width (RBC) [Ratio] 14.1 % Normal 11.5-15.0 [facility] Comment on above: Order Comment: Speci men Type: BLOOD SPECIMEN Ordering Facility: [facility] [place] Address: [address] [place] [address] Performed By: #### 5 7021-8 #### [facility] CLIA [id number] [address] [place] [address] [place] Hematocrit (Bld) [Volume fraction] 46.1 % High 36.0-46.0 [facility] Comment on above: Order Comment: Speci men Type: BLOOD SPECIMEN Ordering Facility: [facility] [place] Address: [address] [place] [address] Performed By: #### 5 7021-8 #### [facility] CLIA [id number] [address] [place] [address] [place] Hemoglobin (Bld) [Mass/Vol] 14.8 g/dL Normal 11.5-15.5 [facility] Comment on above: Order Comment: Speci men Type: BLOOD SPECIMEN Ordering Facility: [facility] [place] Address: [address] [place] [address] Performed By: #### 5 7021-8 #### [facility] CLIA [id number] [address] [place] [address] [place] Immature granulocytes (Bld) [#/Vol] 0.04 10*3/uL Normal <0.10 [facility] Comment on above: Order Comment: Speci men Type: BLOOD SPECIMEN Ordering Facility: [facility] [place] Address: [address] [place] [address] Performed By: #### 5 7021-8 #### [facility] CLIA [id number] [address] [place] [address] [place] Immature granulocytes/100 WBC (Bld) 0.5 % Normal [facility] Comment on above: Order Comment: Speci men Type: BLOOD SPECIMEN Ordering Facility: [facility] [place] Address: [address] [place] [address] Performed By: #### 5 7021-8 #### [facility] CLIA [id number] [address] [place] [address] [place] Lymphocytes (Bld) [#/Vol] 1.63 10*3/uL Normal 1.00-4.00 [facility] Comment on above: Order Comment: Speci men Type: BLOOD SPECIMEN Ordering Facility: [facility] [place] Address: [address] [place] [address] Performed By: #### 5 7021-8 #### [facility] CLIA [id number] [address] [place] [address] [place] Lymphocytes/100 WBC (Bld) 21.4 % Normal [facility] Comment on above: Order Comment: Speci men Type: BLOOD SPECIMEN Ordering Facility: [facility] [place] Address: [address] [place] [address] Performed By: #### 5 7021-8 #### [facility] CLIA [id number] [address] [place] [address] [place] MCH (RBC) [Entitic mass] 31.1 pg Normal 26.0-34.0 [facility] Comment on above: Order Comment: Speci men Type: BLOOD SPECIMEN Ordering Facility: [facility] [place] Address: [address] [place] [address] Performed By: #### 5 7021-8 #### [facility] CLIA [id number] [address] [place] [address] [place] MCHC (RBC) [Mass/Vol] 32.1 g/dL Normal 30.5-36.0 [facility] Comment on above: Order Comment: Speci men Type: BLOOD SPECIMEN Ordering Facility: [facility] [place] Address: [address] [place] [address] Performed By: #### 5 7021-8 #### [facility] CLIA [id number] [address] [place] [address] [place] MCV (RBC) [Entitic vol] 96.8 fL Normal 80.0-100.0 [facility] Comment on above: Order Comment: Speci men Type: BLOOD SPECIMEN Ordering Facility: [facility] [place] Address: [address] [place] [address] Performed By: #### 5 7021-8 #### [facility] CLIA [id number] [address] [place] [address] [place] Monocytes (Bld) [#/Vol] 0.52 10*3/uL Normal <0.87 [facility] Comment on above: Order Comment: Speci men Type: BLOOD SPECIMEN Ordering Facility: [facility] [place] Address: [address] [place] [address] Performed By: #### 5 7021-8 #### [facility] CLIA [id number] [address] [place] [address] [place] Monocytes/100 WBC (Bld) 6.8 % Normal [facility] Comment on above: Order Comment: Speci men Type: BLOOD SPECIMEN Ordering Facility: [facility] [place] Address: [address] [place] [address] Performed By: #### 5 7021-8 #### [facility] CLIA [id number] [address] [place] [address] [place] Neutrophils (Bld) [#/Vol] 5.11 10*3/uL Normal 1.45-7.50 [facility] Comment on above: Order Comment: Speci men Type: BLOOD SPECIMEN Ordering Facility: [facility] [place] Address: [address] [place] [address] Performed By: #### 5 7021-8 #### [facility] CLIA [id number] [address] [place] [address] [place] Neutrophils/100 WBC (Bld) 67.1 % Normal [facility] Comment on above: Order Comment: Speci men Type: BLOOD SPECIMEN Ordering Facility: [facility] [place] Address: [address] [place] [address] Performed By: #### 5 7021-8 #### [facility] CLIA [id number] [address] [place] [address] [place] Nucleated RBC (Bld) [#/Vol] 10*3/uL Normal <0.01 [facility] Comment on above: Order Comment: Speci men Type: BLOOD SPECIMEN Ordering Facility: [facility] [place] Address: [address] [place] [address] Performed By: #### 5 7021-8 #### [facility] CLIA [id number] [address] [place] [address] [place] Nucleated RBC/100 WBC (Bld) [Ratio] 0.0 /100 WBC Normal [facility] Comment on above: Order Comment: Speci men Type: BLOOD SPECIMEN Ordering Facility: [facility] [place] Address: [address] [place] [address] Performed By: #### 5 7021-8 #### [facility] CLIA [id number] [address] [place] [address] [place] Platelet mean volume (Bld) [Entitic vol] 10.2 fL Normal 9.0-12.7 [facility] Comment on above: Order Comment: Speci men Type: BLOOD SPECIMEN Ordering Facility: [facility] [place] Address: [address] [place] [address] Performed By: #### 5 7021-8 #### [facility] CLIA [id number] [address] [place] [address] [place] Platelets (Bld) [#/Vol] 304 10*3/uL Normal 150-400 [facility] Comment on above: Order Comment: Speci men Type: BLOOD SPECIMEN Ordering Facility: [facility] [place] Address: [address] [place] [address] Performed By: #### 5 7021-8 #### [facility] CLIA [id number] [address] [place] [address] [place] RBC (Bld) [#/Vol] 4.76 10*6/uL Normal 3.90-5.20 [facility] Comment on above: Order Comment: Speci men Type: BLOOD SPECIMEN Ordering Facility: [facility] [place] Address: [address] [place] [address] Performed By: #### 5 7021-8 #### [facility] CLIA [id number] [address] [id number] [place] WBC (Bld) [#/Vol] 7.62 10*3/uL Normal 3.70-11.00 [facility] Comment on above: Order Comment: Speci men Type: BLOOD SPECIMEN Ordering Facility: [facility] [place] Address: [address] [place] [id number] Performed By: #### 5 7021-8 #### [facility] CLIA [id number] [address] [id number] [place] CNOVon 09-20-2023 CNOV Office Visit (PLASHL ) -- PATITOMINAL Andres ([id number]) 1955 F Date Time Provider Department 09/20/23 [...] 4 weeks after surgery. 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 Do not [...] -Consult to lymphedema therapy placed. Please call [phone] to schedule, change, cancel or confirm an appointment. -Return to clinic in when CASSIDY drain meets criteria for removal, okay for home health to remove drain. -Follow up w/ Dr. Cobian in 4 weeks. -If experiencing wound complications or have any questions or concerns during business hours call [phone], option 3 or after hours (after 5 pm or on the weekend) call [phone] and ask for the plastic surgery resident / fellow monument erector for further instructions. If you have increasing [...] Past Histories independently gathered by the clinical telecommunications support and the remaining scribed note accurately describes my personal service to the patient. Referring Provider: BYRON JUNE [[id number]] Allergies As of Date: 09/20/2023 Noted Allergy [...] Other Visit (more content not included)... Normal [facility] Comprehensive metabolic 2000 panelon 09-20-2023 Albumin [Mass/Vol] 3.9 g/dL Normal 3.9-4.9 [facility] Comment on above: Order Comment: Speci men Type: BLOOD SPECIMEN Ordering Facility: [facility] [place] Address: [address] [place] [address] Performed By: #### 2 4323-8 #### [facility] CLIA [id number] [address] [id number] [place] ALP [Catalytic activity/Vol] 124 U/L High 34-123 [facility] Comment on above: Order Comment: Speci men Type: BLOOD SPECIMEN Ordering Facility: [facility] [place] Address: [address] [place] [address] Performed By: #### 2 4323-8 #### [facility] CLIA [id number] [address] [place] [address] [place] ALT [Catalytic activity/Vol] 37 U/L Normal 7-38 [facility] Comment on above: Order Comment: Speci men Type: BLOOD SPECIMEN Ordering Facility: [facility] [place] Address: [address] [place] [address] Performed By: #### 2 4323-8 #### [facility] CLIA [id number] [address] [place] [address] [place] Anion gap [Moles/Vol] 17 mmol/L Normal 9-18 [facility] Comment on above: Order Comment: Speci men Type: BLOOD SPECIMEN Ordering Facility: [facility] [place] Address: [address] [place] [address] Performed By: #### 2 4323-8 #### [facility] CLIA [id number] [address] [place] [address] [place] AST [Catalytic activity/Vol] 31 U/L Normal 13-35 [facility] Comment on above: Order Comment: Speci men Type: BLOOD SPECIMEN Ordering Facility: [facility] [place] Address: [address] [place] [address] Performed By: #### 2 4323-8 #### [facility] CLIA [id number] [address] [place] [address] [place] Bilirubin [Mass/Vol] 0.4 mg/dL Normal 0.2-1.3 [facility] Comment on above: Order Comment: Speci men Type: BLOOD SPECIMEN Ordering Facility: [facility] [place] Address: [address] [place] [address] Performed By: #### 2 4323-8 #### [facility] CLIA [id number] [address] [place] [address] [place] Calcium [Mass/Vol] 9.1 mg/dL Normal 8.5-10.2 [facility] Comment on above: Order Comment: Speci men Type: BLOOD SPECIMEN Ordering Facility: [facility] [place] Address: [address] [place] [address] Performed By: #### 2 4323-8 #### [facility] CLIA [id number] [address] [place] [address] [place] Chloride [Moles/Vol] 104 mmol/L Normal 97-105 [facility] Comment on above: Order Comment: Speci men Type: BLOOD SPECIMEN Ordering Facility: [facility] [place] Address: [address] [place] [address] Performed By: #### 2 4323-8 #### [facility] CLIA [id number] [address] [place] [address] [place] CO2 [Moles/Vol] 21 mmol/L Low 22-30 [facility] Comment on above: Order Comment: Speci men Type: BLOOD SPECIMEN Ordering Facility: [facility] [place] Address: [address] [place] [address] Performed By: #### 2 4323-8 #### [facility] CLIA [id number] [address] [place] [address] [place] Creatinine [Mass/Vol] 0.82 mg/dL Normal 0.58-0.96 [facility] Comment on above: Order Comment: Speci men Type: BLOOD SPECIMEN Ordering Facility: [facility] [place] Address: [address] [place] [address] Performed By: #### 2 4323-8 #### [facility] CLIA [id number] [address] [place] [address] [place] Creatinine and Glomerular filtration rate.predicted panel (S/P/Bld) 78 mL/min/1.73m??? Normal >=60 [facility] Comment on above: Order Comment: Speci men Type: BLOOD SPECIMEN Ordering Facility: [facility] [place] Address: [address] [place] [address] Result Comment: Cristal mated Glomerular Filtration Rate [...] GFR. Performed By: #### 2 4323-8 #### [facility] CLIA [id number] [address] [place] [address] [place] Glucose [Mass/Vol] 117 mg/dL High 74-99 [facility] Comment on above: Order Comment: Alison mccain Type: BLOOD SPECIMEN Ordering Facility: [facility] [place] Address: [address] [place] [address] Result Comment: The [place] [employer] (ADA) provides guidance for cutoff [...] Standards of Medical Care in Diabetes 2016, [place] [employer]. Diabetes Care. 2016.39(Suppl 1). Performed By: #### 2 4323-8 #### [facility] CLIA [id number] [address] [place] [address] [place] Potassium [Moles/Vol] 4.2 mmol/L Normal 3.7-5.1 [facility] Comment on above: Order Comment: Alison mccain Type: BLOOD SPECIMEN Ordering Facility: [facility] [place] Address: [address] [id number] Performed By: #### 2 4323-8 #### [facility] CLIA [id number] [address] [place] [address] [place] Protein [Mass/Vol] 6.8 g/dL Normal 6.3-8.0 [facility] Comment on above: Order Comment: Alison mccain Type: BLOOD SPECIMEN Ordering Facility: [facility] [place] Address: [address] [place] [address] Performed By: #### 2 4323-8 #### [facility] CLIA [id number] [address] [place] [address] [place] Sodium [Moles/Vol] 142 mmol/L Normal 136-144 [facility] Comment on above: Order Comment: Alison mccain Type: BLOOD SPECIMEN Ordering Facility: [facility] [place] Address: [address] [place] [address] Performed By: #### 2 4323-8 #### [facility] CLIA [id number] [address] [place] [address] [place] Urea nitrogen [Mass/Vol] 9 mg/dL Normal 7-21 [facility] Comment on above: Order Comment: Alison mccain Type: BLOOD SPECIMEN Ordering Facility: [facility] [place] Address: [address] [place] [address] Performed By: #### 2 4323-8 #### [facility] CLIA [id number] [address] [place] [address] [place] PT panel Coag (PPP)on 2023 INR Coag (PPP) [Relative time] 1.0 {INR} Normal 0.9-1.3 [facility] Comment on above: Order Comment: Alison mccain Type: BLOOD SPECIMEN Ordering Facility: [facility] [place] Address: [address] [place] [address] Result Comment: Rosalinda min K Antagonist (VKA) Therapeutic Range: INR 2 to 3 (Target INR of 2.5) Note: For patients treated with VKA drugs, such as warfarin, the [place] [employer] 2012 Guideline recommends [...] 2012, 141:7S-47S Tim RA, et al. [facility] 2017, 70: 252-289 Performed By: #### 3 4528-0 #### [facility] CLIA [id number] [address] [place] [address] [place] PT Coag (PPP) [Time] 10.9 s Normal 9.7-13.0 [facility] Comment on above: Order Comment: Speci men Type: BLOOD SPECIMEN Ordering Facility: [facility] [place] Address: [facility] [place] [address] Performed By: #### 3 4528-0 #### [facility] CLIA [id number] [address] [id number] [place] [facility] Natasha 09-13-2023 CNPN Telephone (YADIRA) -- MINAL CAPUTO ([id number]) 1955 F Date Time Provider Department 09/13/23 [...] - Unknown Date Reviewed: 09/13/2023 Reviewed by: Isaodra Bowers LPN - Fully Assessed Reason for [...] Encounter Status:Closed by STEVO OLIVA on 09/13/23 [facility] INJ SENTINEL NODE BREAST LEFTon 07-29-2023 [facility] US AXILLA ONLY LEFTon 2022 [facility] Activated partial thrombopla stin time (aPTT) in platelet poor plasma by coagulation aOrdered By: Janet Dillard on 02-28-2023 aPTT Coag (PPP) [Time] 27.6 s 25.1-36.5 [facility] - CoagulationOrde red By: Janet Dillard on 02-28-2023 PT Coag (PPP) [Time] 12.1 s 9.0-12.9 [facility] Platelet poor plasma interna tional normalized ratio (INR) by coagulation assay (relatOrdered By: Janet Dillard on 02-28-2023 INR Coag (PPP) [Relative time] 1.0 {INR} [facility] Comment on above: INR Therapeutic Rang [...] 02-28-2023 Platelets (Bld) [#/Vol] 304 10*3/uL 150-450 [facility] CBC AUTO DIFFon 12-11-2022 BASO # 0.0 103/ul Normal 0.0-0.1 [facility] Comment on above: Performed By: #### C BC #### [facility] [address] [address] [address] Jessica Fall Basophils/100 WBC (Bld) 0.1 % Critically low 0.2-2.0 [facility] Comment on above: Performed By: #### C BC #### [facility] [address] [address] [address] Jessica Fall EO # 0.0 103/ul Normal 0.0-0.7 [facility] Comment on above: Performed By: #### C BC #### [facility] [address] [address] [address] Jessica Fall Eosinophils/100 WBC (Bld) 0.0 % Critically low 0.9-7.0 [facility] Comment on above: Performed By: #### C BC #### [facility] [address] [address] [address] Jessica Fall Erythrocyte distribution width (RBC) [Ratio] 13.9 % Normal 11.0-15.0 [facility] Comment on above: Performed By: #### C BC #### [facility] [address] [address] [address] Jessica Fall Hematocrit (Bld) [Volume fraction] 43.5 % Normal 36.0-48.0 [facility] Comment on above: Performed By: #### C BC #### [facility] [address] [address] [address] Jessica Fall Hemoglobin (Bld) [Mass/Vol] 14.6 g/dL Normal 12.0-16.0 [facility] Comment on above: Performed By: #### C BC #### [facility] [address] [address] [address] Jessica Fall IG # 0.18 10e3/ul Critically high 0.00-0.03 [facility] Comment on above: Performed By: #### C BC #### [facility] [address] [address] [address] Jessica Fall IG % 1.0 % Critically high 0.0-0.5 [facility] Comment on above: Performed By: #### C BC #### [facility] [address] [address] [address] Jessica Fall LYMPH # 1.5 103/ul Normal 1.2-3.8 [facility] Comment on above: Performed By: #### C BC #### [facility] [address] [place] [address] Dr. Jessica Fall Lymphocytes/100 WBC (Bld) 8.3 % Critically low 20.5-60.0 [facility] Comment on above: Performed By: #### C BC #### [facility] [address] [place] [address] Dr. Jessica Fall MANUAL DIFF REQ NO Normal [facility] Comment on above: Performed By: #### C BC #### [facility] [address] [place] [address] Dr. Jessica Fall MCH (RBC) [Entitic mass] 29.6 pg Normal 26.7-34.0 [facility] Comment on above: Performed By: #### C BC #### [facility] [address] [address] [address] Jessica Fall MCHC (RBC) [Mass/Vol] 33.6 g/dL Normal 29.9-35.2 [facility] Comment on above: Performed By: #### C BC #### [facility] [address] [place] [address] Dr. Jessica Fall MCV (RBC) [Entitic vol] 88.1 fL Normal 81.0-99.0 [facility] Comment on above: Performed By: #### C BC #### [facility] [address] [address] [address] Jessica Fall MONO # 0.7 103/ul Normal 0.3-0.8 [facility] Comment on above: Performed By: #### C BC #### [facility] [address] [address] [address] Jessica Fall Monocytes/100 WBC (Bld) 3.7 % Normal 1.7-12.0 [facility] Comment on above: Performed By: #### C BC #### [facility] [address] [place] [address] Dr. Jessica Fall NEUT # 15.6 103/ul Critically high 1.4-6.5 [facility] Comment on above: Performed By: #### C BC #### [facility] [address] [place] [address] Dr. Jessica Fall Neutrophils/100 WBC (Bld) 86.9 % Critically high 43.0-75.0 [facility] Comment on above: Performed By: #### C BC #### [facility] [address] [place] [address] Dr. Jessica Fall Platelet mean volume (Bld) [Entitic vol] 9.7 fL Normal 9.5-13.5 [facility] Comment on above: Performed By: #### C BC #### [facility] [address] [place] [address] Dr. Jessica Fall PLT 372 103/ul Normal 150-450 [facility] Comment on above: Performed By: #### C BC #### [facility] [address] [place] [address] Dr. Jessica Fall RBC 4.94 106/ul Normal 4.20-5.40 [facility] Comment on above: Performed By: #### C BC #### [facility] [address] [place] [address] Dr. Jessica Fall WBC 17.9 103/ul Critically high 4.0-11.0 [facility] Comment on above: Performed By: #### C BC #### [facility] [address] [address] [address] Jessica Fall PROF CHEM 8 (BAS METB)on Anion gap [Moles/Vol] 13.8 mmol/L Normal [facility] Comment on above: Performed By: #### B MP #### [facility] [address] [address] [address] Jessica Fall Calcium [Mass/Vol] 8.8 mg/dL Normal 8.5-10.1 [facility] Comment on above: Performed By: #### B MP #### [facility] [address] [address] [address] Jessica Fall Chloride [Moles/Vol] 104 mmol/L Normal 98-107 [facility] Comment on above: Performed By: #### B MP #### [facility] [address] [place] [address] Dr. Jessica Fall CO2 [Moles/Vol] 26.5 mmol/L Normal 21.0-32.0 [facility] Comment on above: Performed By: #### B MP #### [facility] [address] [address] [address] Jessica Fall Creatinine [Mass/Vol] 0.95 mg/dL Normal 0.55-1.02 [facility] Comment on above: Performed By: #### B MP #### [facility] [address] [place] [address] Dr. Jessica Fall EGFR-AF COMORAN >60 Normal >=60 [facility] Comment on above: Performed By: #### B MP #### [facility] [address] [place] [address] Dr. Jessica Fall EGFR-NON AF COMORAN 58 mL/min/1.73m2 Critically low >=60 [facility] Comment on above: Performed By: #### B MP #### [facility] [address] [address] [address] Jessica Fall Glucose [Mass/Vol] 246 mg/dL Critically high 74-106 [facility] Comment on above: Performed By: #### B MP #### [facility] [address] [address] [address] Jessica Fall Potassium [Moles/Vol] 4.3 mmol/L Normal 3.5-5.1 [facility] Comment on above: Performed By: #### B MP #### [facility] [address] [place] [address] Dr. Jessica Fall Sodium [Moles/Vol] 140 mmol/L Normal 136-145 [facility] Comment on above: Performed By: #### B MP #### [facility] [address] [place] [address] Dr. Jessica Fall Urea nitrogen [Mass/Vol] 19.0 mg/dL Critically high 7.0-18.0 [facility] Comment on above: Performed By: #### B MP #### [facility] [address] [place] [address] Dr. Jessica Fall Urea nitrogen/Creatinine [Mass ratio] 20.0 mg/mg Normal [facility] Comment on above: Performed By: #### B MP #### [facility] [address] [place] [address] Dr. Jessica Fall CBC AUTO DIFFon 12-10-2022 BASO # 0.0 103/ul Normal 0.0-0.1 [facility] Comment on above: Performed By: #### C BC #### [facility] [address] [place] [address] Dr. Jessica Fall Basophils/100 WBC (Bld) 0.2 % Normal 0.2-2.0 [facility] Comment on above: Performed By: #### C BC #### [facility] [address] [place] [address] Dr. Jessica Fall EO # 0.0 103/ul Normal 0.0-0.7 [facility] Comment on above: Performed By: #### C BC #### [facility] [address] [place] [address] Dr. Jessica Fall Eosinophils/100 WBC (Bld) 0.0 % Critically low 0.9-7.0 [facility] Comment on above: Performed By: #### C BC #### [facility] [address] [place] [address] Dr. Jessica Fall Erythrocyte distribution width (RBC) [Ratio] 14.2 % Normal 11.0-15.0 [facility] Comment on above: Performed By: #### C BC #### [facility] [address] [place] [address] Dr. Jessica Fall Hematocrit (Bld) [Volume fraction] 44.9 % Normal 36.0-48.0 [facility] Comment on above: Performed By: #### C BC #### [facility] [address] [place] [address] Dr. Jessica Fall Hemoglobin (Bld) [Mass/Vol] 14.9 g/dL Normal 12.0-16.0 [facility] Comment on above: Performed By: #### C BC #### [facility] [address] [place] [address] Dr. Jessica Fall IG # 0.08 10e3/ul Critically high 0.00-0.03 [facility] Comment on above: Performed By: #### C BC #### [facility] [address] [place] [address] Dr. Jessica Fall IG % 0.8 % Critically high 0.0-0.5 [facility] Comment on above: Performed By: #### C BC #### [facility] [address] [place] [address] Dr. Jessica Fall LYMPH # 1.3 103/ul Normal 1.2-3.8 [facility] Comment on above: Performed By: #### C BC #### [facility] [address] [place] [address] Dr. Jessica Fall Lymphocytes/100 WBC (Bld) 12.1 % Critically low 20.5-60.0 [facility] Comment on above: Performed By: #### C BC #### [facility] [address] [place] [address] Dr. Jessica Fall MANUAL DIFF REQ NO Normal [facility] Comment on above: Performed By: #### C BC #### [facility] [address] [place] [address] Dr. Jessica Fall MCH (RBC) [Entitic mass] 29.7 pg Normal 26.7-34.0 [facility] Comment on above: Performed By: #### C BC #### [facility] [address] [address] [address] Jessica Fall MCHC (RBC) [Mass/Vol] 33.2 g/dL Normal 29.9-35.2 [facility] Comment on above: Performed By: #### C BC #### [facility] [address] [address] [address] Jessica Fall MCV (RBC) [Entitic vol] 89.4 fL Normal 81.0-99.0 [facility] Comment on above: Performed By: #### C BC #### [facility] [address] [place] [address] Dr. Jessica Fall MONO # 0.1 103/ul Critically low 0.3-0.8 [facility] Comment on above: Performed By: #### C BC #### [facility] [address] [place] [address] Dr. Jessica Fall Monocytes/100 WBC (Bld) 1.2 % Critically low 1.7-12.0 [facility] Comment on above: Performed By: #### C BC #### [facility] [address] [place] [address] Dr. Jessica Fall NEUT # 8.9 103/ul Critically high 1.4-6.5 [facility] Comment on above: Performed By: #### C BC #### [facility] [address] [place] [address] Dr. Jessica Fall Neutrophils/100 WBC (Bld) 85.7 % Critically high 43.0-75.0 [facility] Comment on above: Performed By: #### C BC #### [facility] [address] [place] [address] Dr. Jessica Fall Platelet mean volume (Bld) [Entitic vol] 9.8 fL Normal 9.5-13.5 [facility] Comment on above: Performed By: #### C BC #### [facility] [address] [address] [address] Jessica Fall PLT 337 103/ul Normal 150-450 [facility] Comment on above: Performed By: #### C BC #### [facility] [address] [address] [address] Jessica Fall RBC 5.02 106/ul Normal 4.20-5.40 [facility] Comment on above: Performed By: #### C BC #### [facility] [address] [address] [address] Jessica Fall WBC 10.4 103/ul Normal 4.0-11.0 [facility] Comment on above: Performed By: #### C BC #### [facility] [address] [place] [address] Dr. Jessica Fall GLYCOHEMOGLOBIN A1Con 2022 ADA RECOMMENDATION SEE BELOW Normal [facility] Comment on above: Result Comment: ADA RECOMMENDED LIMIT 4.0 - 6.0 ADA THERAPEUTIC TARGET < 7.0 ACTION SUGGESTED > 7.0 Performed By: #### A 1C #### [facility] [address] [place] [address] Dr. Jessica Fall Glucose [Mass/Vol] 134 mg/dL Normal [facility] Comment on above: Performed By: #### A 1C #### [facility] [address] [place] [address] Dr. Jessica Fall HbA1c (Bld) [Mass fraction] 6.3 % Critically high 4.5-6.2 [facility] Comment on above: Performed By: #### A 1C #### [facility] [address] [place] [address] Dr. Jessica Fall PROF CHEM 8 (BAS METB)on Anion gap [Moles/Vol] 12.8 mmol/L Normal [facility] Comment on above: Performed By: #### C BC #### [facility] [address] [place] [address] Dr. Jessica Fall Calcium [Mass/Vol] 8.8 mg/dL Normal 8.5-10.1 [facility] Comment on above: Performed By: #### C BC #### [facility] [address] [address] [address] Jessica Fall Chloride [Moles/Vol] 102 mmol/L Normal 98-107 [facility] Comment on above: Performed By: #### C BC #### [facility] [address] [address] [address] Jessica Fall CO2 [Moles/Vol] 26.2 mmol/L Normal 21.0-32.0 [facility] Comment on above: Performed By: #### C BC #### [facility] [address] [address] [address] Jessica Fall Creatinine [Mass/Vol] 1.01 mg/dL Normal 0.55-1.02 [facility] Comment on above: Performed By: #### C BC #### [facility] [address] [address] [address] Jessica Fall EGFR-AF COMORAN >60 Normal >=60 [facility] Comment on above: Performed By: #### C BC #### [facility] [address] [address] [address] Jessica Fall EGFR-NON AF COMORAN 55 mL/min/1.73m2 Critically low >=60 [facility] Comment on above: Performed By: #### C BC #### [facility] [address] [address] [address] Jessica Fall Glucose [Mass/Vol] 219 mg/dL Critically high 74-106 [facility] Comment on above: Performed By: #### C BC #### [facility] [address] [address] [address] Jessica Fall Potassium [Moles/Vol] 4.0 mmol/L Normal 3.5-5.1 [facility] Comment on above: Performed By: #### C BC #### [facility] [address] [address] [address] Jessica Fall Sodium [Moles/Vol] 137 mmol/L Normal 136-145 [facility] Comment on above: Performed By: #### C BC #### [facility] [address] [place] [address] Dr. Jessica Fall Urea nitrogen [Mass/Vol] 22.0 mg/dL Critically high 7.0-18.0 [facility] Comment on above: Performed By: #### C BC #### [facility] [address] [place] [address] Dr. Jessica Fall Urea nitrogen/Creatinine [Mass ratio] 21.8 mg/mg Normal [facility] Comment on above: Performed By: #### C BC #### [facility] [address] [place] [address] Dr. Jessica Fall BNPon 12-09-2022 Natriuretic peptide B (Bld) [Mass/Vol] 77.0 pg/mL Normal <=900.0 [facility] Comment on above: Performed By: #### C BC #### [facility] [address] [place] [address] Dr. Jessica Fall CBC AUTO DIFFon 12-09-2022 BASO # 0.1 103/ul Normal 0.0-0.1 [facility] Comment on above: Performed By: #### C BC #### [facility] [address] [place] [address] Dr. Jessica Fall Basophils/100 WBC (Bld) 0.5 % Normal 0.2-2.0 [facility] Comment on above: Performed By: #### C BC #### [facility] [address] [place] [address] Dr. Jessica Fall EO # 0.1 103/ul Normal 0.0-0.7 [facility] Comment on above: Performed By: #### C BC #### [facility] [address] [place] [address] Dr. Jessica Fall Eosinophils/100 WBC (Bld) 0.5 % Critically low 0.9-7.0 [facility] Comment on above: Performed By: #### C BC #### [facility] [address] [place] [address] Dr. Jessica Fall Erythrocyte distribution width (RBC) [Ratio] 14.1 % Normal 11.0-15.0 [facility] Comment on above: Performed By: #### C BC #### [facility] [address] [address] [address] Jessica Fall Hematocrit (Bld) [Volume fraction] 46.5 % Normal 36.0-48.0 [facility] Comment on above: Performed By: #### C BC #### [facility] [address] [place] [address] Dr. Jessica Fall Hemoglobin (Bld) [Mass/Vol] 15.6 g/dL Normal 12.0-16.0 [facility] Comment on above: Performed By: #### C BC #### [facility] [address] [place] [address] Dr. Jessica Fall IG # 0.07 10e3/ul Critically high 0.00-0.03 [facility] Comment on above: Performed By: #### C BC #### [facility] [address] [place] [address] Dr. Jessica Fall IG % 0.6 % Critically high 0.0-0.5 [facility] Comment on above: Performed By: #### C BC #### [facility] [address] [place] [address] Dr. Jessica Fall LYMPH # 4.5 103/ul Critically high 1.2-3.8 [facility] Comment on above: Performed By: #### C BC #### [facility] [address] [place] [address] Dr. Jessica Fall Lymphocytes/100 WBC (Bld) 40.1 % Normal 20.5-60.0 [facility] Comment on above: Performed By: #### C BC #### [facility] [address] [place] [address] Dr. Jessica Fall MANUAL DIFF REQ NO Normal [facility] Comment on above: Performed By: #### C BC #### [facility] [address] [place] [address] Dr. Jessica Fall MCH (RBC) [Entitic mass] 29.7 pg Normal 26.7-34.0 [facility] Comment on above: Performed By: #### C BC #### [facility] [address] [address] [address] Jessica Fall MCHC (RBC) [Mass/Vol] 33.5 g/dL Normal 29.9-35.2 [facility] Comment on above: Performed By: #### C BC #### [facility] [address] [address] [address] Jessica Fall MCV (RBC) [Entitic vol] 88.4 fL Normal 81.0-99.0 [facility] Comment on above: Performed By: #### C BC #### [facility] [address] [address] [address] Jessica Fall MONO # 0.8 103/ul Normal 0.3-0.8 [facility] Comment on above: Performed By: #### C BC #### [facility] [address] [place] [address] Dr. Jessica Fall Monocytes/100 WBC (Bld) 7.0 % Normal 1.7-12.0 [facility] Comment on above: Performed By: #### C BC #### [facility] [address] [place] [address] Dr. Jessica Fall NEUT # 5.8 103/ul Normal 1.4-6.5 [facility] Comment on above: Performed By: #### C BC #### [facility] [address] [place] [address] Dr. Jessica Fall Neutrophils/100 WBC (Bld) 51.3 % Normal 43.0-75.0 [facility] Comment on above: Performed By: #### C BC #### [facility] [address] [place] [address] Dr. Jessica Fall Platelet mean volume (Bld) [Entitic vol] 9.4 fL Critically low 9.5-13.5 [facility] Comment on above: Performed By: #### C BC #### [facility] [address] [place] [address] Dr. Jessica Fall PLT 354 103/ul Normal 150-450 [facility] Comment on above: Performed By: #### C BC #### [facility] [address] [address] [address] Jessica Fall RBC 5.26 106/ul Normal 4.20-5.40 [facility] Comment on above: Performed By: #### C BC #### [facility] [address] [address] [address] Jessica Fall WBC 11.3 103/ul Critically high 4.0-11.0 [facility] Comment on above: Performed By: #### C BC #### [facility] [address] [address] [address] Jessica Fall CTA CHEST WO W [...] Dharmesh LOPEZ Date: 2022-12-09 21:04 Normal [facility] INFLUENZA A AND B AGon 12-09 INFLUANEGH SEE BELOW Normal [facility] Comment on above: Result Comment: Nega tive for Flu A protein angiten. Infection due to Flu A cannot be ruled out. Flu A angiten in the sample may be below the detection limit of the test. Performed By: #### D DIM #### [facility] [address] [place] [address] Dr. Jessica Fall [facility] SEE BELOW Normal [facility] Comment on above: Result Comment: Nega tive for Flu B protein antigen. Infection due to Flu B cannot be ruled out. Flu B antigen in the sample may be below the detection limit of the test. Performed By: #### D DIM #### [facility] [address] [place] [address] Dr. Jessica Fall INFLUENZA A AG Negative Normal NEGATIVE SEE COMMENT [facility] Comment on above: Performed By: #### D DIM #### [facility] [address] [place] [address] Dr. Jessica Fall INFLUENZA B AG Negative Normal NEGATIVE SEE COMMENT [facility] Comment on above: Performed By: #### D DIM #### [facility] [address] [place] [address] Dr. Jessica Fall PROF CHEM 8 (BAS METB)on Anion gap [Moles/Vol] 15.6 mmol/L Normal [facility] Comment on above: Performed By: #### C BC #### [facility] [address] [place] [address] Dr. Jessica Fall Calcium [Mass/Vol] 8.8 mg/dL Normal 8.5-10.1 [facility] Comment on above: Performed By: #### C BC #### [facility] [address] [place] [address] Dr. Jessica Fall Chloride [Moles/Vol] 104 mmol/L Normal 98-107 [facility] Comment on above: Performed By: #### C BC #### [facility] [address] [place] [address] Dr. Jessica Fall CO2 [Moles/Vol] 26.4 mmol/L Normal 21.0-32.0 [facility] Comment on above: Performed By: #### C BC #### [facility] [address] [place] [address] Dr. Jessica Fall Creatinine [Mass/Vol] 1.15 mg/dL Critically high 0.55-1.02 [facility] Comment on above: Performed By: #### C BC #### [facility] [address] [address] [address] Jessica Fall EGFR-AF COMORAN 57 mL/min/1.73m2 Critically low >=60 [facility] Comment on above: Performed By: #### C BC #### [facility] [address] [address] [address] Jessica Fall EGFR-NON AF COMORAN 47 mL/min/1.73m2 Critically low >=60 [facility] Comment on above: Performed By: #### C BC #### [facility] [address] [address] [address] Jessica Fall Glucose [Mass/Vol] 126 mg/dL Critically high 74-106 [facility] Comment on above: Performed By: #### C BC #### [facility] [address] [address] [address] Jessica Fall Potassium [Moles/Vol] 4.0 mmol/L Normal 3.5-5.1 [facility] Comment on above: Performed By: #### C BC #### [facility] [address] [address] [address] Jessica Fall Sodium [Moles/Vol] 142 mmol/L Normal 136-145 [facility] Comment on above: Performed By: #### C BC #### [facility] [address] [address] [address] Jessica Fall Urea nitrogen [Mass/Vol] 25.0 mg/dL Critically high 7.0-18.0 [facility] Comment on above: Performed By: #### C BC #### [facility] [address] [address] [address] Jessica Fall Urea nitrogen/Creatinine [Mass ratio] 21.7 mg/mg Normal [facility] Comment on above: Performed By: #### C BC #### [facility] [address] [address] [address] Jessica Fall RESPIRATORY PANEL PLUSon Adenovirus Not detected Normal NOT DETECTED [facility] Comment on above: Performed By: #### R SPLUS #### [facility] [address] [place] [address] Dr. Jessica Ferrara. Parapertusis Not detected Normal NOT DETECTED [facility] Comment on above: Performed By: #### R SPLUS #### [facility] [address] [place] [address] Dr. Jessica Ferrara. Pertussis Not detected Normal NOT DETECTED [facility] Comment on above: Performed By: #### R SPLUS #### [facility] [address] [place] [address] Dr. Jessica Fall Chlamydia Pneumoniae Not detected Normal NOT DETECTED [facility] Comment on above: Performed By: #### R SPLUS #### [facility] [address] [place] [address] Dr. Jessica Fall Coronavirus 229E Not detected Normal NOT DETECTED [facility] Comment on above: Performed By: #### R SPLUS #### [facility] [address] [place] [address] Dr. Jessica Fall Coronavirus HKU1 Not detected Normal NOT DETECTED [facility] Comment on above: Performed By: #### R SPLUS #### [facility] [address] [place] [address] Dr. Jessica Fall Coronavirus NL63 Not detected Normal NOT DETECTED [facility] Comment on above: Performed By: #### R SPLUS #### [facility] [address] [place] [address] Dr. Jessica Fall Coronavirus OC43 Not detected Normal NOT DETECTED [facility] Comment on above: Performed By: #### R SPLUS #### [facility] [address] [place] [address] Dr. Jessica Fall Influenza A H1 Not detected Normal NOT DETECTED [facility] Comment on above: Performed By: #### R SPLUS #### [facility] [address] [place] [address] Dr. Jessica Fall Influenza A H1 2009 Not detected Normal NOT DETECTED [facility] Comment on above: Performed By: #### R SPLUS #### [facility] [address] [place] [address] Dr. Jessica Fall Influenza A H3 Not detected Normal NOT DETECTED [facility] Comment on above: Performed By: #### R SPLUS #### [facility] [address] [place] [address] Dr. Jessica Fall Influenza B Not detected Normal NOT DETECTED [facility] Comment on above: Performed By: #### R SPLUS #### [facility] [address] [place] [address] Dr. Jessica Fall Metapneumovirus Detected Abnormal NOT DETECTED [facility] Comment on above: Performed By: #### R SPLUS #### [facility] [address] [place] [address] Dr. Jessica Fall Mycoplas. Pneumoniae Not detected Normal NOT DETECTED [facility] Comment on above: Performed By: #### R SPLUS #### [facility] [address] [place] [address] Dr. Jessica Fall Parainfluenza 1 Not detected Normal NOT DETECTED [facility] Comment on above: Performed By: #### R SPLUS #### [facility] [address] [place] [address] Dr. Jessica Fall Parainfluenza 2 Not detected Normal NOT DETECTED [facility] Comment on above: Performed By: #### R SPLUS #### [facility] [address] [place] [address] Dr. Jessica Fall Parainfluenza 3 Not detected Normal NOT DETECTED [facility] Comment on above: Performed By: #### R SPLUS #### [facility] [address] [place] [address] Dr. Jessica Fall Parainfluenza 4 Not detected Normal NOT DETECTED [facility] Comment on above: Performed By: #### R SPLUS #### [facility] [address] [place] [address] Dr. Jessica Fall Rhino/Enterovirus Not detected Normal NOT DETECTED [facility] Comment on above: Performed By: #### R SPLUS #### [facility] [address] [place] [address] Dr. Jessica Fall RP2 Header 1 RESPIRATORY PANEL: VIRUSES Normal [facility] Comment on above: Performed By: #### R SPLUS #### [facility] [address] [address] [address] Jessica Fall RP2 Header 2 RESPIRATORY PANEL: BACTERIA Normal [facility] Comment on above: Performed By: #### R SPLUS #### [facility] [address] [place] [address] Dr. Jessica Fall RSV Not detected Normal NOT DETECTED [facility] Comment on above: Performed By: #### R SPLUS #### [facility] [address] [address] [address] Jessica Fall SARS-CoV-2 (COVID-19) RNA NORAH+probe Ql (Unsp spec) Not detected Normal NOT DETECTED [facility] Comment on above: Performed By: #### R SPLUS #### [facility] [address] [place] [address] Dr. Jessica Fall TROPONIN, HIGH SENSITIVITYon 12-09-2022 HSTROP 9.3 pg/mL Normal 4.0-51.3 [facility] Comment on above: Result Comment: CUT- OFF POINTS HAVE BEEN ESTABLISHED BASED ON THE FOURTH UNIVERSAL DEFINITIONS OF MYOCARDIAL INFARCTION. THE UPPER REFERENCE LIMIT (URL) OF TROPONIN, DEFINED THE 99TH PERCENTILE OF cTnI DISTRIBUTION IN A REFERENCE POPULATION, HAS BEEN CONFIRMED THE DECISION THRESHOLD FOR PR DIAGNOSIS. Performed By: #### C BC #### [facility] [address] [place] [address] Dr. Jessica Fall XR CHEST 1 Von [...] Dharmesh LOPEZ Date: 2022-12-09 18:44 Normal [facility] COVID + FLU Quick Testingon 12-03-2022 SARS-CoV-2 (COVID-19) RNA NORAH+probe Ql (Unsp spec) Negative [facility] Other COVID + FLU Quick Testing Negative [facility] Other Urine culture routineOrdered By: DAYANNA SCHUMACHER on 08-12-2022 Bacteria identified Cx Nom (U) Escherichia coli [facility] COVID Quick Testingon 2021 Result Positive [facility] Other XR HIP GENERAL 3V PELV/AP/LA T LEFTon 03-23-2022 [facility] XR Pelvis and Hip - left AP and Lateral frogon 03-23-2022 IMPRESSION: No appreciable change in the advanced left hip degenerative arthritis. Sales Compensation Analyst: BEA Transcribe Date/Time: Mar 23 2022 4:32P [...] abnormality. [id number] E_DIVISION OF RADIOLOGY Provider, Chance quiros [place] - 03/23/2022 * * *Final Report* * [...] in the advanced left hip degenerative arthritis. Sales Compensation Analyst: BEA Transcribe Date/Time: Mar 23 2022 4:32P Dictated by : LESA LESTER MD This examination was interpreted and the report reviewed and electronically signed by: LESA LESTER MD on Mar 23 2022 4:34PM EST [facility] Radiology Study observation (narrative) [facility] XR Pelvis and Hip - left AP and Lateral frogOrdered By: Ccf Provider on 03-23-2022 [facility] CARDIAC JALEEL 3-6on 2 CK [Catalytic activity/Vol] 57 U/L Normal 26-192 [facility] Comment on above: Performed By: #### C BC #### [facility] [address] [address] [address] Jessica Fall CK.MB [Mass/Vol] 0.63 ng/mL Normal <=3.60 [facility] Comment on above: Performed By: #### C BC #### [facility] [address] [address] [address] Jessica Fall HSTROP 9.7 pg/mL Normal 4.0-51.3 [facility] Comment on above: Result Comment: CUT- OFF POINTS HAVE BEEN ESTABLISHED BASED ON THE FOURTH UNIVERSAL DEFINITIONS OF MYOCARDIAL INFARCTION. THE UPPER REFERENCE LIMIT (URL) OF TROPONIN, DEFINED THE 99TH PERCENTILE OF cTnI DISTRIBUTION IN A REFERENCE POPULATION, HAS BEEN CONFIRMED THE DECISION THRESHOLD FOR PR DIAGNOSIS. Performed By: #### C #### [facility] [address] [address] [address] CSPINE WO CONon [...] CHRISTINE AVILES Date: 2022-03-14 01:54 Normal [facility] CT HEAD WO CONon 03-14-2022 CT [...] Palomo RAM Date: 2022-03-14 03:31 Normal [facility] [address] TSPINE WO CONon 2 CT [...] or bony displacement. Electronically authenticated by: RAKESH SOALRES Date: 2022-03-14 03:40 Normal [facility] CTA CHEST WO W CONon 022 [...] GABBY GREY Date: 2022-03-13 22:22 Normal [facility] Covid-19 PCR (CVDTB)on 02-24 SARS-CoV-2 (COVID-19) RNA NORAH+probe Ql (Unsp spec) Not detected Normal NOT DETECTED [facility] Comment on above: Result Comment: When [...] for this test is supported by the [place] of [employer] and Human Service's declaration that [...] used). Performed By: #### C VDTBH #### [facility] [address] [place] [address] Dr. Jessica Fall BNPon 03-13-2022 Natriuretic peptide B (Bld) [Mass/Vol] 87.0 pg/mL Normal <=900.0 [facility] Comment on above: Performed By: #### C MP, BNP, HSTROPN #### [facility] [address] [place] [address] Dr. Jessica Fall CARDIAC JALEEL 3-6on 2 CK [Catalytic activity/Vol] 61 U/L Normal 26-192 [facility] Comment on above: Performed By: #### D DIM #### [facility] [address] [place] [address] Dr. Jessica Fall CK.MB [Mass/Vol] 0.57 ng/mL Normal <=3.60 [facility] Comment on above: Performed By: #### D DIM #### [facility] [address] [place] [address] Dr. Jessica Fall HSTROP 8.9 pg/mL Normal 4.0-51.3 [facility] Comment on above: Result Comment: CUT- OFF POINTS HAVE BEEN ESTABLISHED BASED ON THE FOURTH UNIVERSAL DEFINITIONS OF MYOCARDIAL INFARCTION. THE UPPER REFERENCE LIMIT (URL) OF TROPONIN, DEFINED THE 99TH PERCENTILE OF cTnI DISTRIBUTION IN A REFERENCE POPULATION, HAS BEEN CONFIRMED THE DECISION THRESHOLD FOR PR DIAGNOSIS. Performed By: #### D DIM #### [facility] [address] [place] [address] Dr. Jessica Fall CBC AUTO DIFFon 03-13-2022 BASO # 0.1 103/ul Normal 0.0-0.1 [facility] Comment on above: Performed By: #### C BC #### [facility] [address] [place] [address] Dr. Jessica Fall Basophils/100 WBC (Bld) 0.6 % Normal 0.2-2.0 [facility] Comment on above: Performed By: #### C BC #### [facility] [address] [place] [address] Dr. Jessica Fall EO # 0.2 103/ul Normal 0.0-0.7 [facility] Comment on above: Performed By: #### C BC #### [facility] [address] [place] [address] Dr. Jessica Fall Eosinophils/100 WBC (Bld) 2.6 % Normal 0.9-7.0 [facility] Comment on above: Performed By: #### C BC #### [facility] [address] [place] [address] Dr. Jessica Fall Erythrocyte distribution width (RBC) [Ratio] 13.3 % Normal 11.0-15.0 [facility] Comment on above: Performed By: #### C BC #### [facility] [address] [place] [address] Dr. Jessica Fall Hematocrit (Bld) [Volume fraction] 44.1 % Normal 36.0-48.0 [facility] Comment on above: Performed By: #### C BC #### [facility] [address] [place] [address] Dr. Jessica Fall Hemoglobin (Bld) [Mass/Vol] 14.6 g/dL Normal 12.0-16.0 [facility] Comment on above: Performed By: #### C BC #### [facility] [address] [place] [address] Dr. Jessica Fall IG # 0.02 10e3/ul Normal 0.00-0.03 [facility] Comment on above: Performed By: #### C BC #### [facility] [address] [place] [address] Dr. Jessica Fall IG % 0.2 % Normal 0.0-0.5 [facility] Comment on above: Performed By: #### C BC #### [facility] [address] [place] [address] Dr. Jessica Fall LYMPH # 2.5 103/ul Normal 1.2-3.8 [facility] Comment on above: Performed By: #### C BC #### [facility] [address] [place] [address] Dr. Jessica Fall Lymphocytes/100 WBC (Bld) 28.8 % Normal 20.5-60.0 [facility] Comment on above: Performed By: #### C BC #### [facility] [address] [place] [address] Dr. Jessica Fall MANUAL DIFF REQ NO Normal [facility] Comment on above: Performed By: #### C BC #### [facility] [address] [place] [address] Dr. Jessica Fall MCH (RBC) [Entitic mass] 30.2 pg Normal 26.7-34.0 [facility] Comment on above: Performed By: #### C BC #### [facility] [address] [place] [address] Dr. Jessica Fall MCHC (RBC) [Mass/Vol] 33.1 g/dL Normal 29.9-35.2 [facility] Comment on above: Performed By: #### C BC #### [facility] [address] [place] [address] Dr. Jessica Fall MCV (RBC) [Entitic vol] 91.1 fL Normal 81.0-99.0 [facility] Comment on above: Performed By: #### C BC #### [facility] [address] [place] [address] Dr. Jessica Fall MONO # 0.8 103/ul Normal 0.3-0.8 [facility] Comment on above: Performed By: #### C BC #### [facility] [address] [place] [address] Dr. Jessica Fall Monocytes/100 WBC (Bld) 8.8 % Normal 1.7-12.0 [facility] Comment on above: Performed By: #### C BC #### [facility] [address] [address] [address] Jessica Fall NEUT # 5.2 103/ul Normal 1.4-6.5 [facility] Comment on above: Performed By: #### C BC #### [facility] [address] [address] [address] Jessica Fall Neutrophils/100 WBC (Bld) 59.0 % Normal 43.0-75.0 [facility] Comment on above: Performed By: #### C BC #### [facility] [address] [place] [address] Dr. Jessica Fall Platelet mean volume (Bld) [Entitic vol] 10.1 fL Normal 9.5-13.5 [facility] Comment on above: Performed By: #### C BC #### [facility] [address] [place] [address] Dr. Jessica Fall PLT 301 103/ul Normal 150-450 [facility] Comment on above: Performed By: #### C BC #### [facility] [address] [place] [address] Dr. Jessica Fall RBC 4.84 106/ul Normal 4.20-5.40 [facility] Comment on above: Performed By: #### C BC #### [facility] [address] [place] [address] Dr. Jessica Fall WBC 8.8 103/ul Normal 4.0-11.0 [facility] Comment on above: Performed By: #### C BC #### [facility] [address] [place] [address] Dr. Jessica Fall D-DIMERon 03-13-2022 D-DIMER 0.82 mg/L FEU Critically high <=0.59 [facility] Comment on above: Performed By: #### D DIM #### [facility] [address] [place] [address] Dr. Jessica Fall D-DIMER COMMENTS SEE BELOW Normal [facility] Comment on above: Result Comment: Incr [...] hospitalization. Performed By: #### D DIM #### [facility] [address] [place] [address] Dr. Jessica Fall PROF 14(COMP METB)on 022 Albumin [Mass/Vol] 3.7 g/dL Normal 3.4-5.0 [facility] Comment on above: Performed By: #### C MP, BNP, HSTROPN #### [facility] [address] [place] [address] Dr. Jessica Fall Albumin/Globulin [Mass ratio] 1.1 {ratio} Normal [facility] Comment on above: Performed By: #### C MP, BNP, HSTROPN #### [facility] [address] [place] [address] Dr. Jessica Fall ALP [Catalytic activity/Vol] 94 U/L Normal 46-116 [facility] Comment on above: Performed By: #### C MP, BNP, HSTROPN #### [facility] [address] [place] [address] Dr. Jessica Fall ALT [Catalytic activity/Vol] 50 U/L Normal 14-59 [facility] Comment on above: Performed By: #### C MP, BNP, HSTROPN #### [facility] [address] [place] [address] Dr. Jessica Fall Anion gap [Moles/Vol] 14.1 mmol/L Normal [facility] Comment on above: Performed By: #### C MP, BNP, HSTROPN #### [facility] [address] [place] [address] Dr. Jessica Fall AST [Catalytic activity/Vol] 18 U/L Normal 15-37 [facility] Comment on above: Performed By: #### C MP, BNP, HSTROPN #### [facility] [address] [place] [address] Dr. Jessica Fall Bilirubin [Mass/Vol] 0.4 mg/dL Normal 0.2-1.0 [facility] Comment on above: Performed By: #### C MP, BNP, HSTROPN #### [facility] [address] [place] [address] Dr. Jessica Fall Calcium [Mass/Vol] 9.0 mg/dL Normal 8.5-10.1 [facility] Comment on above: Performed By: #### C MP, BNP, HSTROPN #### [facility] [address] [place] [address] Dr. Jessica Fall Chloride [Moles/Vol] 103 mmol/L Normal 98-107 [facility] Comment on above: Performed By: #### C MP, BNP, HSTROPN #### [facility] [address] [place] [address] Dr. Jessica Fall CO2 [Moles/Vol] 26.7 mmol/L Normal 21.0-32.0 [facility] Comment on above: Performed By: #### C MP, BNP, HSTROPN #### [facility] [address] [place] [address] Dr. Jessica Fall Creatinine [Mass/Vol] 1.17 mg/dL Critically high 0.55-1.02 [facility] Comment on above: Performed By: #### C MP, BNP, HSTROPN #### [facility] [address] [place] [address] Dr. Jessica Fall EGFR-AF COMORAN 56 mL/min/1.73m2 Critically low >=60 [facility] Comment on above: Performed By: #### C MP, BNP, HSTROPN #### [facility] [address] [place] [address] Dr. Jessica Fall EGFR-NON AF COMORAN 46 mL/min/1.73m2 Critically low >=60 [facility] Comment on above: Performed By: #### C MP, BNP, HSTROPN #### [facility] [address] [place] [address] Dr. Jessica Fall Globulin (S) [Mass/Vol] 3.4 g/dL Normal [facility] Comment on above: Performed By: #### C MP, BNP, HSTROPN #### [facility] [address] [place] [address] Dr. Jessica Fall Glucose [Mass/Vol] 132 mg/dL Critically high 74-106 [facility] Comment on above: Performed By: #### C MP, BNP, HSTROPN #### [facility] [address] [place] [address] Dr. Jessica Fall Potassium [Moles/Vol] 3.8 mmol/L Normal 3.5-5.1 [facility] Comment on above: Performed By: #### C MP, BNP, HSTROPN #### [facility] [address] [place] [address] Dr. Jessica Fall Protein [Mass/Vol] 7.1 g/dL Normal 6.4-8.2 [facility] Comment on above: Performed By: #### C MP, BNP, HSTROPN #### [facility] [address] [place] [address] Dr. Jessica Fall Sodium [Moles/Vol] 140 mmol/L Normal 136-145 [facility] Comment on above: Performed By: #### C MP, BNP, HSTROPN #### [facility] [address] [place] [address] Dr. Jessica Fall Urea nitrogen [Mass/Vol] 17.0 mg/dL Normal 7.0-18.0 [facility] Comment on above: Performed By: #### C MP, BNP, HSTROPN #### [facility] [address] [place] [address] Dr. Jessica Fall Urea nitrogen/Creatinine [Mass ratio] 14.5 mg/mg Normal [facility] Comment on above: Performed By: #### C MP, BNP, HSTROPN #### [facility] [address] [place] [address] Dr. Jessica Fall TROPONIN, HIGH SENSITIVITYon 03-13-2022 HSTROP 8.1 pg/mL Normal 4.0-51.3 [facility] Comment on above: Result Comment: CUT- OFF POINTS HAVE BEEN ESTABLISHED BASED ON THE FOURTH UNIVERSAL DEFINITIONS OF MYOCARDIAL INFARCTION. THE UPPER REFERENCE LIMIT (URL) OF TROPONIN, DEFINED THE 99TH PERCENTILE OF cTnI DISTRIBUTION IN A REFERENCE POPULATION, HAS BEEN CONFIRMED THE DECISION THRESHOLD FOR PR DIAGNOSIS. Performed By: #### C MP, BNP, HSTROPN #### [facility] [address] [place], [place] [address] Dr. Jessica Fall XR CHEST 1 Von [...] CRISTINA FARIAS Date: 2022-03-13 19:44 Normal [facility] SCREENING MAMMOGRAM W/SULMA, BILATERAL*on 02-08-2022 SCREENING [...] Visible on only one projection. Asymmetries that return checker to be summation artifact are benign (BI-RADS 2). The BI-RADS [employer] offers guidance regarding the other categories of [...] VERY IMPORTANT TO YOUR HEALTH. THE CURRENT [employer] GUIDELINES RECOMMENDS ANNUAL MAMMOGRAPHY BEGINNING AT AGE 39 THIS FACILITY USES A REMINDER SYSTEM TO ENSURE ALL PATIENTS RECEIVE REMINDER NOTIFICATIONS AT THE APPROPRIATE TIME BASED ON THE RECOMMENDATIONS OF THIS EXAM. Report reported and signed by Crow Tompkins on 02/09/2022 0728 Normal [facility] Assistant Superintendent XR Chest 2 Views*on 08-24-20 21 XR [...] by Crow Tompkins on 08/28/2021 0724 Normal [facility] Assistant Superintendent XR Hip Complete Left*on 07-28 XR Hip [...] by Crow Tompkins on 08/28/2021 0727 Normal [facility] Assistant Superintendent Reminderson 08-02-2021 Reminders - From: Jeannie Patten To: Yessi Brown; Sent: 07/03/2021 12:02:12 EST Show up: 07/17/2021 12:01:00 EST Subject: Reminder Message Reminder Message Please Remember to:_ PATIENT RELATED REMINDER:_ ( X ) Call Patient to schedule Renal US prior to next appointment at [facility] (08/02/2021) ( ) Ask Patient to ( ) Call Relative ( ) Schedule Patient ( ) Follow up on Results ( ) Other: PROVIDER RELATED REMINDER:_ ( ) [employer] Specialist ( ) Call Pharmacy ( ) Call Lab ( ) Other: Special Instructions:_ Comments:_ patient cancelled her 08-02 appointment and did not wish to reschedule, no need to track Normal [facility] COVID Quick Testingon 2020 Result Negative [facility] Other Coding Summary.on 07-07-2021 Coding Summary. [id number] Gh0bWw +PGhlYWQ+QQ4PCWGmA47vbHNgx J5ZP5bHAU1TNGSLDLEBBG1GTV5 xlZC3FLmaC5RedfIs VmauvBVrYX11UTr4ADN7hKndVD ndqY3jyXRjW5x7YaHqIZ11bN56 PAiqCQZeMgA4KvThhzcpfZRi H3ioImUtmTYvRac+PHRhYmxlIH tfQOMoWRqpVWOxPtEmpTkuQG5f Qx2dPBQdIDErzZhbkLUeZuHk e0vbPGPlVYxsJL2toMlhV8ZvqV B9QTJuw6i7Bw18bVI+PHRkIHN0 wZqqBGsmf484GrAdr1ymQXK6 qSHaRQwkFHJ1M14sp1A9HEXqWZ YwYII2fWT0lA4rnHlddngtI3Br jSYuXpX9UQH3pVJqoA6ilVal xxcovJ6jKfj+S68ITU1TUOPIRA 3JGwy8H2ElGfmtnTZ+YL37OAPo PT29hXZndSNag0nyhAk7CwMc CTNiOQH5mRfeQRuen1DxMCZgS6 8fbVQnk0W7LUNpnTyfzRMdNcGm zEQ6fU8mYCqfqprbh7iuuasl Bqtmh4yyfl51xO70M23jDScqXW HrELV3LHSqBLKvmIcxlz6zuI2r Ii8+RRydg8uet7mpeEh3PqQr KCUftjXicEqtLIZ0q0JlYa53C9 FosNkxx9TqHbo5em94gLFvy9R2 tJB6KPbgYQGwdO0dAYkpVoR5 UMEsKbRvaD47wVOiNNccJw5caB vniBdkMO7hKWHkdndcIWOpkS0k WXIscXRajGbeFF6lVQFwwoae k394KhZpMTP9CXHfaTNdN9JzmA 9uZzBbXYIvVDMsU8IrwHUmPVes L522WBmqTvO5GNLqslKnW1Jt AEXydGqoHcF2s6V0Pk0Je0Wupn khXKT8HZbkHMTiCjXhKzJeAsU9 N2TsJfy7FIOaqZkyZN4lS4Zf TAJjwpydwyppyOU7PAQvFTIjaH 90wXZvMOgcUw2rz8Q8k042GBLc DAIgeZ52Uf8zgPftQUViqVPQ jM9zkbbki7ybujupVzCjBKBnCX o2YAy9VARkgLirVeAmKCV6SyV8 OPP2pKIprR9naTsujqexaT1p Oyc+P04xbI8zSXN2TOF8wwznUM UzhbPkNP99PX52L8QeJvobvBTn bGU+JUYpknAcnUayFJ4hDvYi q8dpu1VfWWxmG4AhAOFaLNxjEd p2QNLyNUL7tSD2kR6jTPNnSRnt t0P8yGN1X4NkjeNpkn1uk4nt IZRoFUqhE52cdXYkm1Z3ZDTocD N0ULEtrJkwBbRosW86Byc+PGNv jUvin6CnMkblw8bbk7kncNf2 OmIkMSKfaqJsrTzvGXS8v1UhRd 41L24xXNfmCXMkFTOlAPRbMZJk mVbbvo7joI6hGz2+PGNvbCB3 tUP9sJ5kRALiHjV5KTdqP209Uv EqmNZgVhysy6qlt0rogRj6IzBo DZMmjrWciRgkPLT3m6TxRp37 H56sUTxgTNYgXPBzXQSiLRBukC kvhn5toX6jWt5+GQ5je3pcwr29 aT33xAD+MXMhXCU9eCoqCKsn LYZxkI1eTEopYcR1LDRbHkMovV 62uCKsQVkmWr6gmZqffGxjUX3c YKHmotapj742LhKvg0zjLJGx fXLgQJzmVFR8N34ev7E8NJCuHE HuROD4qHV7fT6zsLkitqztrCUu sQpcerUvbCxpGHdxRBodM658 IHRvcDsnPlBhdGllbnQgTmFtZT u1J7XdKra4BLZqcOxkXN5tjTVj UKluDa5miPecvJjfCE3pSZUl yjfgn817GmDcp8xcLUShhOXrYG jlYLA4P45uf8G2KKKzGXHySAQ3 aEW8oW9guNekvwsqmAMqgMht uhBsoRayDOziOIeuF758QLWvaB euOdIgkjYtNRPruRI4JU33ZT92 iSMat6T1iCT4Y6FqQLLcxgto zyoceZY1WYMmSUQnoE84Di4tpZ lpRe5zQRHmNVM4ARVnvJUfZ4Gw rS0fDkMjVLPsPJIlY7WkwHHa ECggF077PDbjRyW9YDTgvkVzW0 PuWHTghFyzMaN5n0Q0Wd3SU4N7 BA14XY45cWBoj9H6uYS6K8Mw TICrbrldtzwquUM5PKGqBFFfaH 85Mm2jzPuzWq7eNECrSJA7QUXq dPUvM9EhaA7cQgZaSRZeWJBx C6UioBMoHQuoI767FUqjJbQ4JD WdggTmH3YbNXRgxQomEsV7p5S4 Vq4YBQj2NU15CG96kXHwb2N0 nNZ5L7CoVZUhkyjhjowvxMQ8ZP GcHAJviY35Vs0ipUtgVe5wRGSp YOY7OVRsfGRyC4UhfB3jEfGz MFMmHXSkU9IkyRMeFBbjL030FW yaNkD6PVJrwgLcN7KfSAPexThq PsN5o9W4Uh0XDHHxGO45DWF7 jXD5LN22EM30F3TbPxwhvJXjsI U+PHRhYmxlIHdpZHRoPScxMDAl GdSjiJzfLO4xXh3jRDCdQPTq wSgyfEIvKiSvb4arXZFmBMwcQN 0lbJbuU5CxlXN6FXEdd1h1Mx65 U99uK5CtvYM+SIHqcFP5jFF0 hL4oIzRpWmW5HBecY902EpZabL EsWoctt7uib1odxTu1RmA4ADMo riJyvVpnDKH6l8FfJi92L27j IHdpZHRoPSIxNSUiIHZhbGlnbj 5riZ3tCw1+UVNpkHU1qVL7uI3t TtJzMrZ3OLrrF904JtUrrEPc Glwcv2nwx5vysHb8VoNnBRZzjy JnvQteAWI8n8UfKx95J6BxdWxi w6TtSmz4ht80qRMer0T6uMJ4 E7PtGXVxwsipzPDlhGikSZ2lUL DfokejSSSydI2dCVPnS3o0SiJb PxI5RRgnC0TlqmM9RVCunPOw NWenZKF5C08qo3E0VYDrLYFoGX I4iPS7yI0jcIolbonclBCmoQqr qqEjeBsoPHewAIutZ443OECo jMxnCSRsiC4bOFBeeWFpiRjhEC 4wNTBpbjsnPldPTExFTlNMRUdF TCwgRElBTkEgSjwvdGQ+PHRk SIL7pBjePCamVUIaaB6xRBKtK5 j9IfPfHoR1HQplC6KrZUAseoyg Oe53sL7gMjLlAoM4MOitB6Uq lzW2BNVonHYrCCsiLDJ7E43vt8 K8VAUiFQTpYZZ2aAQ0kI6qeSct bjogbGVmdDsgdmVydGljYWwt BDrrI013DJAohNfyKpYzVaEqHq E0XZA5Z7XlMgy8REQxtRexSP7u hILfRNmhBm8yuPzlqHvpWQ0c GUJmtsqhMOUvnO0qJUWbyZSfkG msEA6bWKPrhtuky591CsUzENS6 YEMhlEFeH7JreA8yGdEtJLHn URMsD8SjnWIyMGupI948AAohYy P2APTybcRbN2UaMYOwkLxxSsC4 f7L7Kc71MfBKRDYyxjsziBI+ ZSKdHDL0gIksONkiOYKlvG4lHU PtJ0n4XoRqAoO6DLxiD2GfACLc uqtaFz08oI0ePlBaAtE6TFig J4NsehB8FZPqiTHhLNvvSVH1B4 5el4H3QAZnBQTrLPD1qTZ9rL2h bGlnbjogbGVmdDsgdmVydGlj GTebJAilY664SQElfIewJcFjnW FsZTwvdGQ+NIGwJCJ8lHbsIIxe OENpcI8oDINzJ0k1IcZuFgV0 NWnhD8TsFCNpidlpBg80tJ1lHd YbZbV8UVpnR3AikhU8KLEatNXn SRttFCH4L19mj8P1UMIxIENm ULL8kIC4vR2arIbazealdXQtgF wdemZnaJzcOCwfDNpwU621VZTx yWgqSe1gi6RmslC5eO4bZU88 YJ27P2MeZqlqbKJvlSO+PHRhYm xlIHdpZHRoPScxMDAlJyBzdHls IQ0gGz0uHHGnVWRqeOspiPLd VbIyj8tqKIPuGYprLM7ccPqeC9 EaoNM5ZJNjz0h2Oz13P09yH5Ll dXA+ZBXrnOZ1hRR4sT2pYbPk QhQ1HGtrN944VzCvbCEnJnzus7 nnv2cwnYv5BuGgGOYxsxNzzUpi JOL8o9UbTz68N60bJFkaJSWc DMSyPVMeLGInbKjcki3etP5bEa 8+WZGkqLR5sNG8aZ5kVqJcKcW3 NQsqQ350IwEpdELvDlabK54h U1VyqXX+BZAjVlm0GKXiiKhxHU 1nrZFfVPknZh5xFGA1SkZbTyDq SYtiX8DsUPTiaclkrewxlAM7 ECAwEXPayQ02Ls9crHlaWk3kCK NeBDN7IFJahQYpD3MdoF4tCmAk AGCmVPAtO5JlyJCjWDnmY648 FSvwUoD8EUFfndEuQ4AwHLHcrK rmXgE0t3D1Oj7AwKziwPOsZX4l AiDmEBm2K7MwEbh8TNZlkDvi GE2bdXWdUJxjEl8vhMjjxQcmNI 5oLGSxwiyla962AcAgm1tpKMHd vMZmSShtGNE9R19li5J9BPZk YZSgNEK8kRU1eK0mmYdcpdomyR KomSeraxHqiLgrNNmvTUsuK032 FRTrkOtsYkPZHud8E7LzLbf4 OGHxuNlcMB3kiJEeRHhbHv3baE eftFbbII5cPYLyislal009ExVu b6oqETHobXBfUYaqJTM2L28b e5M1YNDdMRStOHT3fNY8fK8wjC lnbjogbGVmdDsgdmVydGljYWwt YZeuA802KVAbdXzcZy4YQsn9 I6ZpGwd8FBJxeDzuAF4osPLnMO lpMm7sgKjhmLdqDT3vWCXfoxoa f355BqOib5ojXSXoeXUeCLhw CGF0X57tr9Y8QRAkLKVmATO2sW G5dC6hwNnqnjntrCRpxInxaiGf iNsxITkpTTvwI901KSNzzCzi PlBheWVyOjwvdGQ+WI57sc15Q3 MeIfgbQbu1XYSkOBK9gAJ6jI2v QPVaUPnub2J7sGX9J9VxqyLd ci1j (more content not included)... Normal [facility] Coding Summary. CD:[id number] Gh0bWw +PGhlYWQ+LW2UAUCuE36qqGHna A2WE4nPER3SOWDALEPIMX3SIZ5 yuCA6ZQpeI6FjevRj DsbefRUeCZ82TXj4MFZ0iVvvWU fouW0ppNYcR4u8FyWhMJ80bS19 LIfiOTUcEiR0ErOfanlltPYl S1jxUyOgtSIiOue+PHRhYmxlIH uuOYZuUFrhLNVtRqVpsNmjRH3h In5fKHZvCIHduNrkfLSgAhLp g4xkAHUcAWppMC6nsHcsV4PbyB D4GCEzh1g0Ap48mRZ+PHRkIHN0 bDwsVWyzb870VwQke6aqUJW0 iXRaSGipOOQ8R96ve1P7PJKcCJ EsGZK1bCL1yN0sxZwrhjfnF4Hj pOVxRjA4VGZ2iPXzgG0oiPdw dhbxjW4pGhf+D81MKT2VNOQIXP 5CUdp2B3TpYpymeRW+RP03HFQy UM44qQHpjEGbz1oyuZu9TpDk YRTgUTP2wQuzBLkah9EeRROfN4 1pkUGta6Q8NRImpYenuDQnMfAo bAW5sT8kWMtgivrzp9jzzmpm Qfyit3vmat96nK25N94jXCqfHH QnANG3YZElVMIdxHdufq1lsF0g Ii8+BPiez4vsd8bxlNa8ByBq VVSsbgWlvLvxOPI2q4KfJo88Q5 NjdCehg1ZbEyw5qm11iZFxp2K5 gQP0HDncPWDfsE3vKPaiKnU8 IIGgLdNjtG58oGGtADqxTs1abC okcCbuCX4eJCNzrhfgVXUqiD3h OMYvaBAfjXpwYF4wFFEbxsil c221YuFrMLT2NBKggXQqF0UetC 9dDrQuTYStARPkV5VhlQHeXRaw V131HCfwKeW7ITUfanGyL7Tp UXAzrAtfJkE8l3T0Ly6Rk7Iwef zoOTP8EHacXMWvYcB2CtJqDnT2 Z1NfThb4KYZzmEjlAC2rN3Xg AJUcgblalgmpqIV5PTZbJRXutF 11yNHdFDvdJn9ea9V1s982IZDm ZVBxcL29La0ddSqaZCYjyNYF bO2eyqflb9yddjgrHbQfBNBhCL k0ERb7HHJomLzvAsYlGBR5TpP3 MDC0cTOxzM1ceRwxskriqF5m Oyc+D81qsY8kNQG2PAS3ecjvMY JxhuBuLA83BB45V0ViQcoyeWPn bGU+LMFvpdCjxOmvRE2rAyQh h7qqs7XbULipX0FlIYOlXRqoAf a2KFUhVJY4yJV8mZ9vZZPnGBen t4O5hYY7P3IkpkPxlp4uw6sp MTBfVXccW53iwQZyu9C6KPRlcN I5KISwbInsLlXpnJ42Rrj+PGNv cIgyu2SaKwmdl8qnv8vwbRc8 KrDbUUVbenKfcBzwHWZ3h5ElUm 03P75kWUfdSUDeICCwBSWhZXAv tFlhqh4gsS1yEv3+PGNvbCB3 nAB5qN6aMKYlFlP7VNyoR807Ty ForOBrPtjnx5sil7fzkPg6MyIu IYYsdqUfjVfqWUB5w3NqBj49 K31pFOblQDQiQISiQKWsMHWwqG ituk8ifP5sDb2+LH8xr3meno66 jY92fLD+VHQzLTG7dKpgGHoz UMEbwZ0eQKzxHyB5ORZmPgSvrW 50mDQdTIdsUy7teMeenOixOB1b OILgbivxx041CgJwp1zkZBMx oIAcKSqaLJT3Z51mv8R5GFXeNH OpNHL3wIY0rC3wrXpzslotdMTz zTdfvvFcjNqpJAvtQSogP345 IHRvcDsnPlBhdGllbnQgTmFtZT a3N9IpExe3KURtyGxcNA1wmEGu VCgrZn7zrHlkrAmaXM4kJJWo cwnuz189XoCvu5ftGRRmrREvWX pePQW6V91fm8J4XGXcMJIxTJQ0 gYO1gB7qwPmydslurQHunPae hfQczNzlJZgeBPsqB057IZKgdF xyOrGglcVvAMRucSZ2AJ08IK01 cLKib0P7bDB3E2VdGWQdlirw dpnxtPC3RPVqZMSwgD93Zf2hlV veWe6pMNBfNJF3YFWniGRaP9Ei cN7tBzBeMGByEKLtI8LotNNu YBytH595NTfuBzW3EQElyvOhR9 EaWFClzEzkLfT0h6F6Ph2LW1X5 FT82PE93pNEgm3R6nEC5A3Yz CILiuedvkiescDM1VSIwMKLrvB 98Rx6ioUnnSo0wVNXtKHU9QJOx pCJyE3YpmE3qWmJaWPRrRXAu R9AizOBlKOksW537XDzpGrX5PR AgulFqY9KsTWOpkZdsBlR5d7P0 Au4QIVb5UT22UB69xJDis7J7 vWW2J8IqJJHwwjjoenncdFE3OS UsVAWzmM55Mg7lzOhmTc8xGPNe VWG1XAFneLJrN9CjnY3aLvFa AJDfIZPfR0IqxNOwGAmhW286DK xjJnU7GYIwqxKcM5WaYBTvmPdl NrC4u3Z3Ae3HJVOsZK74AVT7 lTG4GL73EQ72U5WpWbccmOSccC U+PHRhYmxlIHdpZHRoPScxMDAl KrHvgFouRQ5pHj1hCUUmQRBk nCggyJYyVnCgp4rfXKGaHWtgTZ 9ewJhpQ4ZkeYL3AAMqa0t9Sn02 T97cR3TkmEN+QNBghYH6rZI7 tR1rFlQtXtH2YZkiN373JqIqaG UdLniej2aiz4knnJj1VcH3JTQe ezMgzEbgDYZ8y9YtUj16X04y IHdpZHRoPSIxNSUiIHZhbGlnbj 2dpM5dIo2+VNXnhHV8lNR2eF4c BiBbAgD2RHnqH138HiGajIOo Ineio1cvj7tqdZm8TwStGNRfea XrwMeeVVJ0c2QwJl59O8CycIzl v4FuDit1dq85mTTpc8D0cPB7 E2VvODDacxwpaTYzzFroXD2zRJ WiaohyHEJytS7iTSVpV4j7NnVx QiX8RJnfZ0OjywA4GBHilWOt YAkxLJP9L14gb6J4OJLfHVGmHX W3vPA8mT1scQuekzbqiZKvnAjl wzNihVdbFQaeQXhgQ090HYHb qEzaIRUoaD5lUFByfXOgfSlpWU 4wNTBpbjsnPldPTExFTlNMRUdF TCwgRElBTkEgSjwvdGQ+PHRk POZ9aBlkOYytYQMlwQ4yZHMdB4 d6KfJgQgZ9DMyjL5MgDQUbcios Uy53zX0sRxYaZoI0VBaoS7Rv eiI7IPGhnMXxIVagIIL7R01uc2 E6ZTGtHVXrHJT6fPW2yT1xnFig bjogbGVmdDsgdmVydGljYWwt FHpiN784HWTvtPzaGdQwDaCpFy F8LTK9P6UfOrj2RMCfiKxmUU1f tYGoFCooPx4dvBvhbQrzGW1h AOEsfakiEXMcdH6uHFNlwERuwJ rrTQ5oQJPpmcijo877ZfWhTCV2 QBPybYYjX3TeaS5rKyYxEJAy SVBnN3VgyMZmCXyoV969WBufXb X1JYYqltTsW0CjLSMxfJncVhD0 l8N0Bj94OwJYMDVigetnjSV+ RNIkRGZ5cOpzJOjlKLPeuA5uHC ZpF1o9EsXfGhH6RMywT3SdMLMa nlunTb93rL6mGmQwWaG1CZzb W9AeqpY1FMQfoUOrXUzvBYK9X5 2dq4G0YEEtCWKpUWM7yJD3fK5w bGlnbjogbGVmdDsgdmVydGlj ZXqvDNucI675PFTwqAotGqRrcM FsZTwvdGQ+GVCcRFU4dOziQXfk NHNdpS9eDAKsJ3n1EwDaDgQ8 PXotO7EgBOCwwhlaGp72lJ3cBy PqFrW0CWsnR3DtzzV5EVNgkNQz OKbjZWC0O11ye2Z5PJFwPNVh PSL1yNR2gJ2vdVklftobhZTawJ yicaCpcMyrPSubTVchE698NDGv nHtcMv6kj0UjnqL2oQ0tHH78 QB38X7HyEfaaiDXjyPE+PHRhYm xlIHdpZHRoPScxMDAlJyBzdHls UR5pDy7bMTRkKJJqhRotoVWv XvZej2umWQPyRZucEA9edHgkD7 AivGT6FKAjo8o6Kx79A03sA5Pi dXA+IBSvrOP5pJW4xU1iMhKo CvL5EJonX981RoHdcEBlBfycj9 xat5jxeYw2LuDhVEBsukChpZky PPK5i8KgNa64L71fKGugGQSi HYOyNPDeRGJbhSqcgr7bhK9oPn 8+VSHgnIW1hNJ8lO6mPuLmYjW2 PUzaO768CiYsuLGlWoxeG63q Q5XeuXS+YBGcBtu1BQYrfSjsLA 1vnNQuTXulFe0cYTO4WtEzHjPg FZquU2UeRHTtuppjlqpmgRS4 IQJxMPQphT34Yn3egAvwVp3zKL JeKPX7KZWioGGxX8PxrX2wGcVe MRQqFQTtI8GwrOLoVMyeS895 RTrwOlF4OEGnfoNaR8ZxFWRbtO cwLnP9k5H8Ma8KsEaodLSwTI0e YjObRQh9W1TkDye9DWTliFfb XF6mqHEdHWkmKi1kyQfsiQapAJ 8jZMQzqzxed528KiNpb5riXFZg dQToTFjpSCR2N40ro6Y8ADGh MGSqDHV4pMV1uU7oxFgrhogopO HwzAfwkfUoxDztYKniOYszO429 GJAtbNhzCnSTObz7U4PdLuf3 UUIimNkdBY5dlFUaRLymHf8ebO tdtJpqRJ1mWGVliplih076ZzJc i4unDOJstTLeHTmaCZW3G53q f9E0TQLxDMCoCPH9cUN7qA0gkZ lnbjogbGVmdDsgdmVydGljYWwt RNvrS168SWIusBynGz6WEsm1 M6LxUpf3RJDdcVelQD4biFRvYZ ilEg2pzAimaJyqPE5eGKRkkwmo s859FkBqj2oaIQEmcKMvXSir GII2Z99js1T7BGSwRQZyVKZ0aK F1jV1yfAywbgthnKUkdWhfyvGa fTzoGKajHWwrE221KLIfwGtz PlBheWVyOjwvdGQ+DB72um77E1 CaXwyuVpj8FLFhYHV9dAD8sI2a GIQaFQtzi7P5gJF6M2RustZn ci1j (more content not included)... [facility] Coding Summary. CD:[id number]:[id number] Gh0bWw +PGhlYWQ+EJ2HHTUkL27fhGNuy N5YS5vXEB5UAZMHCBITDJ0BEF4 btJI9DCwjN7UgzsHp VuhiuCAxIY25JPn3IUN8kBzqSZ zlqU2zaYMtX4y1MoHqOX24wP57 NNgyYZDpGeM9AfZnxjjiyQMz O8gaRiEvnLUyGvy+PHRhYmxlIH hcZLXgVTahBSIpHmVgsJjuVF9c Ko9eDITjQEIjkWthyFGsQrRo k5mdSOSbFJbqTU8eqNehW6GusQ H2BPOnu1g6Rd49oKK+PHRkIHN0 tZeiOSqaa149KhVuq8qsTAM7 cHFzMYfmSPO8P13sr7X9XHCmWN VpHNT0fUR5iJ6dvOszdbyeD7Lx qNMnEjV2UQU9wRAatH5bhIzr lwdhbP5jBpx+D18MRK7RWNAWDI 9GVud4R3MeAzuguSP+WW51JDBk XY41vKJbiSFmt1kweHq3LzUz EXIdEAI9xUjnUPpso2AlKAZoB3 2bbSJhf0W8ETIwbLdwfHIdMbLg wXK8bZ2oGGapiavsx3erucyh Abone6ynzd88lF39T12jGAxvML LzHQX8YHZlAQDyrOxxnu8rlS5q Ii8+HCtzv2fuu7ngbGw9StWa TPHiqdYbrYypVGK4l4TgTd70R3 PlcViox9UiZhu2ht20aLKbw2I4 uOK0YPfaVIZawY9rJKqmYcT0 HWXgDeSpdH36aAOuQAwmLw1uoD qckPevKG8cIZXjdyvnBAUlkH7w IXDmmQFszFftCO5yHMLxjpaq b169KcSfDRJ0YRZirTMdW1XnaN 4wZhJmTAOaNPJeF0IhnHUxYIru M555OJufZzE5RKFcjyZtT3Bp DYXdkTgyBxE3q3P6Vq4Og1Cbqd ofBAW1AWjoLLFlWiUfBwTeSfF8 F5YhAjy0GQRudGbhYO2aH1Lb NYEixvdhhwsgeOS2LCWpGIXteT 19cVAsMUcrFp6lj7R5f805SGUi SOYjfR33Ic2pzEjxNZKshOQD eY7dcshkh6ngwkyoFwCxPALeDK y3BLj0FBAytIzgCvXdWMG3AqQ4 DLI9sJPitN8jqIitgzlfqG5h Oyc+J42guW8tKJP4WRA6dgoeMH EjitOlCL15OL73T3YcXtbcdXRn bGU+QGYzyvHmpQkySP3oCjDp r7fdu6VcRScxQ3AfFANlWUjhSk p9SROgHXB0uJZ6dG6zPAVmPTdg j5T2jPW3Y4YzczFasy4lr5eq HBIqXJfdF25mvTIhz9G8SSWccO J0MRMtpXehVcYopO86Bcr+PGNv iZylr0PcTuonx3uvl4ocgVx7 AkXvWBXpijAvdPmwKFS6h8XtGr 71M06wSEfpVKAwBLUdFSQmZHIu zQfhbq4edR0pSj0+PGNvbCB3 nTH5jS5xRJUtUoG2NAapE290Nb VlwPYdUqxpp5pat2dbuKs0DhNv PCNmkeUcuSluADN2n4ZlAh01 R40gNOhvZCNiARAqLPTjTTYasD maoj7khN7wUw4+SM7sa2miuf36 gD44cOV+ZRSoFQH4bCgtJRuz HMZblE5jFEjtEhZ9JGTpXdLyiT 44jZVzAHzdWx3ihMvhxRvhLX2i OWHpkjhpo388FxOrg9jmPKPo hGDxCTprFJC0P16lq2J5IWMgMX ThYUU0aYN8fM5zjXoiyofpwFKj rNislmYvfKlfKLvjGEllJ093 IHRvcDsnPlBhdGllbnQgTmFtZT b1D3GkFzw8MHSigKfcYP6ewJHp JOkvTg3woIlteLcjSF8lHJWt pbxiy025KcRvs6caXKSxmCBrGE qjZVD7F44ku4W9IRDrRNDxJFG3 gJM7qN7mmJepiqnxvJOokMll nvKgiKkkGNwsANiuU972XNDnjJ meDxSgjnElHRVgdUG3QX23SH37 qQOku4M4jOO0S3RySPUgrsid mssjoRC8TADoOTOijH05Ab0moM xeCw9dUYSjZJV4EACawGFhV0Nb fN6yIhZiHZXgQCIgO0BisBXy YEitR810LKraVbZ5UYGydmTgF0 MvZPRpkBbxDvS5n9V7Vz9IK6Z6 ZO80NF68lVHmh6B8tTC3C2Yw QNAxmnuyloglqVX7LUPlMKFzrB 44Dd8kmBecVh9gDGKxTIY0YDZv cPMgT7OaeS0zVmVhDNFqAXOn O9KbySUlPXehH581SCazBrK3HR TektYdN9BpFQBsgYnoPhG3n4L7 Yk2DYNt5XZ15RY04vEJkn9U7 gKV9Q7UeQVKprcznifphjQC4LN HuPJTckU35Ye2biYuaXj2aVIEf GZM4ZVDgcSYfI7QkeD9vUbUe TXQqBLXqA7TagTMoYAtnM610XX mgMmY3EZYvmnWjB6CdDHWmfUyp LuM9e7S8Mz5LAAOhGJ63GER3 yVB9RV14MF01V9KcXumugWVtgY U+PHRhYmxlIHdpZHRoPScxMDAl KuFluEkhXE6zQu7aISFoVBYo gEujjUQbToZhy3tpKUFlACtpVE 2mzZpiO5PgcUX3YJIsh6w1Hv39 I18bN5BsyJU+PDDuiCL1sJE1 fU0mMfTqCsA5VFraD047GrPatK VpBqppp4nwh5icmAo7AiK5EEUc igYqgJhvXWV3u9FzQa10G77g IHdpZHRoPSIxNSUiIHZhbGlnbj 3pvI1uZl2+QUEgfSI8iAQ9gG0z KjUnOgX3ZFuzF450YfYqhZHw Lkshg0sft3tsqDd1SkZcGYYnpa ZjoBujNEL9p8WwHo55T0AmxPdo n3PtMwi0yc34dNIkw6B1rSW7 Q7CjKKFfivkrdNVdqSfaCH9vKP ZaebhkQZVyuX8mULDwT3j0CdUa SnU0APzqO8IyseW7AMNqyXNg HBgtMUD5U36ny3O7ONAcIVMiDH K8wGQ1yO9slLmckiicaENoqCtn vtBmfQfxCAjfHNjwF913YAHb aIyuYICuxV8sYEDpcRTrnIjxQT 4wNTBpbjsnPldPTExFTlNMRUdF TCwgRElBTkEgSjwvdGQ+PHRk PKB8nRfsUGhcVZNcaU7fIQHiH5 w1HnEuHyM5NPruQ1FmTAEpxshg Le04fW2aLwLmFkQ6GCpyH9Fm lsQ5UUVsqMYsHWmzSAD9U48gj7 I5HMSrCKZxATM3xQL7yW8ftKcf bjogbGVmdDsgdmVydGljYWwt HUjaB535DCDdvKynOgFnOtWfGf Y7VUS4K8QpYkn8TYNdbUdwCQ7i dRCaCEjnSs0qtRyxkUitPE9l BUZsxhbuTSCqmS0hPRMrdQOsxI euUO8uVOKwvkklz204DmLvCJE4 CLYmcQEgJ0IibN2iWtUlLDBa ZWIoE6KdhNDzBYeeH058SFekFj H1AZNgvaOcO5TxNDIilFgbItO1 v8K5Kj11OaMXNQZunvgayPU+ BZTkAVD5vPbtDXkdHXFppA0bJC QtO1f3UnMlXqN1DSceK6CuENXk wzhcUz23fW4yZgKkPjT7QMur S2GhfiX5WJXxkSNbYOivKUM2Z3 2dc7Z2BXWgWFXrXUQ0hFC6tR3f bGlnbjogbGVmdDsgdmVydGlj PSyyKGorH929FSUtmCtgXeXjqR FsZTwvdGQ+NZTyNXA9iNwdNSay QBGbaE8xOZXtJ1j6ZlYcHuY6 QCcbC4AbUAUvofwfBy82kW7jPh MjGvA0JWcsR9OahgQ8FQLcsDYu MFdaHXT8R91jm5Q6XWOuJUBo SLJ5aEZ5hG7kdBxkxomueKZbjV mrbzGzuTkrIFkdBTpvW705FXCh nXibMwFmOlLhBZDifyemP9Yf OTEIHQpuR6YpC1AaeJcbiEN+PC 16zv92B3YdZemdLow8HIZiRHI7 uLC8uL2iCGCpDOyvm2V2kRF7 S7PnxqQjrj8if7jaHSJpSBoxO0 8haGMtl5M0DKEchLW1LCNfsCao RlPjzH33Gjh+JRPnfWgoy5Zj Vbkqw3yme4lxkDp0YiQcAJIhog RriJcuYWW2u7NwGg87L97vBKff NSRuSHFzJSGdIZVjmDxyle7y fJ0hNf6+KPVxyLN7sTZ0xN4hDq ArOiX0JPzfN684EyPueAVvWndf o0dph6unsCx3DnJfWNGkpeUg nHyvWHD3i0DtMy81O4HswZalz8 GwEib5ko63pUGwq8C7sKE9L8Ds NFKevtyakTVuqFfdGG0mTDJq zsebVLXjwY5wQEWuQ7j9OlXoTe X9PGekN6OlarV7QRTgsFXkDZNb lHKMqD0iefycq4qyuurrFhKs GPWoBOy3QDi2KOCvzPoiHyMiBC F8QjV0IIV8hBZcaP3xuNxpfvmu tM3lRax+SXl6o4gxhOUfRB8m tMW0NX63QX07tMEhs0K2wHK5Z9 LgEJSdxgqjltfywMR1TRVrQCHj kS15Cx1fwIwqHi2pUUUvBTZ4 OAHxqIYjB5IizI1jOpJsWBAyHE VkH1XleJNjDAjbP549ANuiInV4 NDTvlaChU2CzURDihKrdEgS6 t0J5Ps9APF26SP61JP54bYBnr9 P9nCW6P1NtRKUzctwapvxdlFF5 QEHwSVWmpN59Et6gfPltWq1l GDNtQUQ4EOIedANeN8SyqC8nBb BbXTMdHZVkT6SivZIcNSkzL010 MVplYiC7WPZnjqWiB4TiFCKk wPljNqL4i3P3Lr9UYq41JO47DY 82oUZgo1V3vJX3X4LoYLGcvxmd awuqlQU3LPUbAAFobY29Ln1l oHrgBi5aVEWzXUJ6HCZmjNUrU5 BbmU1wPcLaQZIxIDGgP5RlcDMo KFugB454RSnsYyG0SZDlyrZh H7GdMFVtsZdrMbD9i8L7Fe8STH oghkq8R4LoRyzsxIS+VB31USJu DB86kSVpnIBfc2kuuHe6JgPt MCUn (more content not included)... Normal [facility] Discharge Instructionson Discharge Instructions [id number]#1.00CD:127 Normal [facility] Lab Reportson 06-30-2021 Lab Reports [id number]#1.00CD:127 Normal [facility] Message from Medicareon Message from Medicare [id number]#1.00CD:127 Normal [facility] RAD - CT Reporton 06-30-2021 RAD - CT Report [id number]#1.00CD:127 Normal [facility] BMPon 06-29-2021 Anion gap [Moles/Vol] 15 mmol/L Normal 6-16 [facility] Comment on above: Performed By: #### 2 [id number], [id number] #### [facility] Laboratory [address] [place] [address] Calcium [Mass/Vol] 8.6 mg/dL Low 8.9-11.1 [facility] Comment on above: Performed By: #### 2 [id number], [id number] #### [facility] Laboratory [address] [place] [address] Chloride [Moles/Vol] 104 mmol/L Normal 101-111 [facility] Comment on above: Performed By: #### 2 [id number], [id number] #### [facility] Laboratory [address] [place] [address] CO2 [Moles/Vol] 23 mmol/L Normal 21-31 [facility] Comment on above: Performed By: #### 2 [id number], [id number] #### [facility] Laboratory [address] [place] [address] Creatinine [Mass/Vol] 1.0 mg/dL Normal 0.5-1.3 [facility] Comment on above: Performed By: #### 2 [id number], [id number] #### [facility] Laboratory [address] [place] [address] Glucose [Mass/Vol] 107 mg/dL Normal 55-199 [facility] Comment on above: Result Comment: If t his glucose result represents a fasting glucose, interpretation should refer to the following reference range: 55-99 mg/dL Performed By: #### 2 [id number], [id number] #### [facility] Laboratory [address] [place] [address] Potassium [Moles/Vol] 4.5 mmol/L Normal 3.5-5.3 [facility] Comment on above: Performed By: #### 2 377454, [id number] #### [facility] Laboratory [address] [place] [address] Sodium [Moles/Vol] 137 mmol/L Normal 135-145 [facility] Comment on above: Performed By: #### 2 963754, [id number] #### [facility] Laboratory [address] [place] [address] Urea nitrogen [Mass/Vol] 21 mg/dL Normal 5-21 [facility] Comment on above: Performed By: #### 2 956023, [id number] #### [facility] Laboratory [address] [place] [address] Urea nitrogen/Creatinine [Mass ratio] 21 No Units High 10-20 [facility] Comment on above: Performed By: #### 2 315064, [id number] #### [facility] Laboratory [address] [place] [address] Inpatient Clinical Summaryon 06-29-2021 Inpatient Clinical Summary [address] [address] Clinical Summary Person Information: Name: MINAL CAPUTO Age: 65 Years : 1955 Sex: Female PCP: EFREN AMANDA MD Marital Status: Race: White Ethnicity: Non- or Language: [place] Visit Id: Visit Reason: New onset afib Speciality: Acuity: Enc Type: Observation Med Service: Medical Arrival: 06/28/2021 15:07:59 Discharge: Dispo Type: Address: [address] [place] [id number] Provider Notes: Diagnosis: 1:Premature atrial beat; 2:Kidney [...] Physician: Follow up: With: Address: When: EFREN TREASURE [address] [facility] [address] [place] [address] Business (1) Within 5 to 7 days Type Location Start [facility] Surgery [facility] 06/29/2021 5:00 PM 06/29/2021 5:46 PM Confirmed Patient Education Information: Kidney Stones, Sosm-zb-Ussc Normal [facility] Inpatient Patient Summaryon 06-29-2021 Inpatient Patient Summary [place] [id number] Patient Discharge Instructions PERSON INFORMATION Name: MINAL CAPUTO Date of : 1955 Current Date: 06/29/2021 17:34:14 PHYSICIANS Admitting Physician: Terrell CASTELLON MD Primary Care Physician: TREASURE HATHAWAY, EFREN PCP Comment: Discharge Diagnosis: 1:Premature atrial beat; 2:Kidney stone; 3:COPD mixed type; 4:Hypertension; 5:Acid reflux; 6:DVT prophylaxis Condition at Discharge: Improved FLORYTREVONHEMINAL Andres has been given the following list [...] results: Follow up: With: Address: When: EFREN Mcintyre[address] [facility] [address] [place], [place] [id number] Business (1) Within 5 to 7 days In the event that this physician does not participate in your insurance network, please consult with your insurance company to find a nearby participating provider. Type Location Start [facility] 06/29/2021 5:00 PM 06/29/2021 5:46 [...] By Mouth every day. Pharmacy Information: Other: [facility] Comment: PATIENT EDUCATION INFORMATION Instructions: Kidney Stones Kidney stones are rock-like masses that form inside of the kidneys. Kidneys are organs that make pee (urine). A kidney stone may move into other parts of the u (more content not included)... [facility] Interdisciplinary Note - Yariel e Manageron 06-29-2021 Interdisciplinary Note - Developer [employer] spoke with patient in room. Patient [...] for cysto with stent to be placed. [facility] Comment on above: Result Comment: Elec tronically Signed By: Teddy ESPANA, Tequila\.br\Date and Time Signed: 06/29/21 11:22 EDT Monitor Recordon 06-29-2021 Monitor Record [id number]#1.00CD:127 [facility] Monitor Record [id number]#1.00CD:127 [facility] Monitor Record [id number]#1.00CD:127 [facility] Monitor Record [id number]#1.00CD:127 [facility] Monitor Record [id number]#1.00CD:127 Normal [facility] Outside Recordson 06-29-2021 Outside Records [id number]#1.00CD:127 Normal [facility] Patient Education - [employer] 1 08-29-2020 [...] these instructions at home: Medicines ? Take xmat-elz-pnfhicu and prescription medicines only as told by [...] 01/28/2009 Document Revised: 12/29/2019 Document Reviewed: 12/29/2019 [employer] Patient Education ? 2019 [employer]. [facility] Progress Note-Physicianon Progress Note-Physician Basic Information [...] 16:48:00) Lymph Auto: 16.9 % (06/28/21 16:48:00) Garza Auto: 8.3 % (06/28/21 16:48:00) Eos Auto: 2.4 % (06/28/21 16:48:00) Basophil Auto: 0.4 % (06/28/21 16:48:00) Neutro Absolute: 6.6 E9/L (06/28/21 16:48:00) Lymph Absolute: 1.6 E9/L (06/28/21 16:48:00) Garza Absolute: 0.8 E9/L (06/28/21 16:48:00) Eos Absolute: [...] and scoliosis. (more content not included)... Normal [facility] Comment on above: Result Comment: Elec tronically Signed By: BIJU HATHAWAY, Terrell\.br\Date and Time Signed: 06/29/21 11:13 EDT Troponin 6 Hr.on 06-29-2021 Troponin I.cardiac [Mass/Vol] 2.70 pg/mL Low 10.10-27.1 0 [facility] Comment on above: Result Comment: The 95% CI (Confidence Interval) PPV (Positive Predictive Value) for myocardial infarction in females is 38 pg/mL, in males 51 pg/mL. The results should be used in conjunction with clinical conditions of myocardial infarction. (Access High Sensitivity Troponin I Instructions For Use, Rosalee Sumeet, March 2018) Performed By: #### 1 [id number] #### [facility] Laboratory [address] [place] [address] Troponin 9 Hr.on 06-29-2021 Troponin I.cardiac [Mass/Vol] 2.90 pg/mL Low 10.10-27.1 0 [facility] Comment on above: Result Comment: The 95% CI (Confidence Interval) PPV (Positive Predictive Value) for myocardial infarction in females is 38 pg/mL, in males 51 pg/mL. The results should be used in conjunction with clinical conditions of myocardial infarction. (Access High Sensitivity Troponin I Instructions For Use, [employer], March 2018) Performed By: #### 1 [id number] #### [facility] [address] [place] [address] US Renalon 06-29-2021 US Renal Exam Date/Time: [...] Transcribed by: BOOGIE Technologist: JOSE GUADALUPE Caceres [facility] XR Abdomen 1 Viewon 06-29-20 21 [...] V. Transcribed by: BOOGIE Technologist: CHECO Normal [facility] eGFRon 06-29-2021 GFR/1.73 sq M.predicted among blacks MDRD (S/P/Bld) [Vol rate/Area] mL/min/{1.73_m2} Normal >=59 [facility] Comment on above: Order Comment: Order added by Discern Expert. Result Comment: eGFR is race adjusted. AA=. Performed By: #### 2 [id number], [id number] #### [facility] [address] [place] [address] GFR/1.73 sq M.predicted among non-blacks MDRD (S/P/Bld) [Vol rate/Area] 55 mL/min/1.73 m2 Low >=59 [facility] Comment on above: Order Comment: Order added by Discern Expert. Result Comment: Cook Mayonnaise renetta kidney disease could be indicated at eGFR's of less than 60 mL/min/1.73m2. Kidney failure is indicated at less than 15 mL/min/1.73m2. Performed By: #### 2 [id number], [id number] #### [facility] [address] [place] [address] Ambulatory Clinical Summaryo n 06-28-2021 Ambulatory Clinical Summary {[id number]}CD: [id number] Normal [facility] Auto Diffon 06-28-2021 Basophils/100 WBC (Bld) 0.4 % Normal 0.0-2.0 [facility] Comment on above: Order Comment: Order Added by Discern Expert. Performed By: #### 2 191059, 3150547, 5249235, 25837661, [id number], 1013053 ####[address] [place] [address] Basophils/Leukocytes Auto (Bld) [Pure # fraction] 0.0 E9/L Normal 0.0-0.2 [facility] Comment on above: Order Comment: Order Added by Discern Expert. Performed By: #### 2 035072, 5210564, 2939290, 68127461, 23037157, 2532304 ####[address] [place] [address] Eosinophils/100 WBC (Bld) 2.4 % Normal 0.0-8.0 [facility] Comment on above: Order Comment: Order Added by Scott Expert. Performed By: #### 2 816035, 6318429, 9908954, 69004111, 66839061, 5176113 ####[address] [address] Eosinophils/Leukocyt es Auto (Bld) [Pure # fraction] 0.2 E9/L Normal 0.0-0.5 [facility] Comment on above: Order Comment: Order Added by Scott Expert. Performed By: #### 2 133643, 4952985, 6615040, 85141363, 07234850, 9606731 ####[address] [address] Lymphocytes/100 WBC (Bld) 16.9 % Normal 14.0-50.0 [facility] Comment on above: Order Comment: Order Added by Scott Expert. Performed By: #### 2 347664, 4701695, 3243828, 15218797, 02541794, 4841500 ####[address] [place] [address] Lymphocytes/Leukocyt es Auto (Bld) [Pure # fraction] 1.6 E9/L Normal 1.0-4.0 [facility] Comment on above: Order Comment: Order Added by Discern Expert. Performed By: #### 2 538374, 3804185, 2784178, 22652959, 43104199, 5500549 ####[address] [place] [address] Monocytes/100 WBC (Bld) 8.3 % Normal 4.0-14.0 [facility] Comment on above: Order Comment: Order Added by Discern Expert. Performed By: #### 2 250528, 8218987, 4635466, 55952575, 93787303, 7877768 ####[address] [address] Monocytes/Leukocytes Auto (Bld) [Pure # fraction] 0.8 E9/L Normal 0.2-1.0 [facility] Comment on above: Order Comment: Order Added by Scott Expert. Performed By: #### 2 443069, 7941808, 8499919, 38528539, 34799492, 4147940 ####[address] [address] Neutrophils/100 WBC (Bld) 72.0 % Normal 36.0-75.0 [facility] Comment on above: Order Comment: Order Added by Scott Expert. Performed By: #### 2 514616, 3531860, 7877118, 09895021, 28029279, 8039148 ####[address] [address] Neutrophils/Leukocyt es Auto (Bld) [Pure # fraction] 6.6 E9/L Normal 2.0-7.5 [facility] Comment on above: Order Comment: Order Added by Scott Expert. Performed By: #### 2 970616, 8153634, 2891199, 19376892, 45958513, 8811700 ####[facility] [address] [place] [address] BMPon 06-28-2021 Creatinine [Mass/Vol] 1.5 mg/dL High 0.5-1.3 [facility] Comment on above: Performed By: #### 2 497568, 6156126, 5005226, 50124871, 10579418, 9286151 ####[facility] [address] [place] [address] Urea nitrogen [Mass/Vol] 25 mg/dL High 5-21 [facility] Comment on above: Performed By: #### 2 460859, 6191132, 1026260, 17928210, 61470257, 4159204 ####[facility] [address] [place] [address] Urea nitrogen/Creatinine [Mass ratio] 17 No Units Normal 10-20 [facility] Comment on above: Performed By: #### 2 165782, 0373403, 8019284, 42966935, 30429894, 7954535 ####[facility] [address] [place] [address] Anion gap [Moles/Vol] 14 mmol/L Normal 6-16 [facility] Comment on above: Performed By: #### 2 545909, 4182235, 8865863, 82096115, 70951898, 7895371 ####[facility] [address] [place] [address] Calcium [Mass/Vol] 8.7 mg/dL Low 8.9-11.1 [facility] Comment on above: Performed By: #### 2 771219, 8664888, 5493655, 39111896, 45701977, 7491152 ####[facility] [address] [place] [address] Chloride [Moles/Vol] 102 mmol/L Normal 101-111 [facility] Comment on above: Performed By: #### 2 473357, 6435618, 2194319, 71399668, 20859264, 1833706 ####[facility] [address] [place] [address] CO2 [Moles/Vol] 27 mmol/L Normal 21-31 [facility] Comment on above: Performed By: #### 2 146094, 5942012, 0795210, 38753806, 92484156, 1236944 ####[facility] [address] [place] [address] Glucose [Mass/Vol] 121 mg/dL Normal 55-199 [facility] Comment on above: Result Comment: If t his glucose result represents a fasting glucose, interpretation should refer to the following reference range: 55-99 mg/dL Performed By: #### 2 480348, 6632950, 4354777, 23446411, 50371417, 3522976 ####[facility] [address] [place] [address] Potassium [Moles/Vol] 3.8 mmol/L Normal 3.5-5.3 [facility] Comment on above: Performed By: #### 2 552493, 0523573, 3453002, 34745985, 46796320, 0419129 ####[facility] [address] [place] [address] Sodium [Moles/Vol] 139 mmol/L Normal 135-145 [facility] Comment on above: Performed By: #### 2 181050, 5982800, 0630682, 10476600, 93258799, 0108269 ####[facility] [address] [place] [address] BUNon 06-28-2021 Urea nitrogen [Mass/Vol] 25 mg/dL High 5-21 [facility] Comment on above: Performed By: #### 2 778951, 1707342, 7311876, 84906841, 5442686, 0542199 ####[facility] [address] [place] [address] CBC w/ Auto Diffon Erythrocyte distribution width (RBC) [Ratio] 14.3 % High 10.9-14.2 [facility] Comment on above: Performed By: #### 2 623445, 7998448, 4153891, 79357034, 77601747, 7666442 ####[facility] [address] [place] [address] Hematocrit (Bld) [Volume fraction] 41.3 % Normal 34.0-46.0 [facility] Comment on above: Performed By: #### 2 734747, 4994233, 0502571, 37704081, 17603838, 3514636 ####[facility] [address] [place] [address] Hemoglobin (Bld) [Mass/Vol] 13.6 g/dL Normal 12.0-16.0 [facility] Comment on above: Performed By: #### 2 611091, 7024995, 8380795, 47060450, 28188401, 8106067 ####[address] [place] [address] MCH (RBC) [Entitic mass] 29.7 pg Normal 27.0-34.0 [facility] Comment on above: Performed By: #### 2 540241, 9724602, 0246254, 38487905, 62295716, 1497669 ####[address] [address] MCHC (RBC) [Mass/Vol] 32.9 g/dL Normal 31.4-36.0 [facility] Comment on above: Performed By: #### 2 952654, 1705434, 6093987, 59993480, 34473169, 3407487 ####[address] [address] MCV (RBC) [Entitic vol] 90.0 fL Normal 80.0-100.0 [facility] Comment on above: Performed By: #### 2 001060, 5822365, 9581898, 56424794, 35548908, 1646160 ####[address] [place] [address] Platelet mean volume (Bld) [Entitic vol] 7.7 fL Normal 6.4-10.8 [facility] Comment on above: Performed By: #### 2 859184, 3595788, 7712166, 08210188, 41772897, 4716599 ####[address] [place] [address] Platelets (Bld) [#/Vol] 300.0 E9/L Normal 150.0-500. 0 [facility] Comment on above: Performed By: #### 2 238617, 6673042, 0443839, 86231313, 01682321, 0793610 ####[address] [address] RBC (Bld) [#/Vol] 4.6 E12/L Normal 4.3-5.9 [facility] Comment on above: Performed By: #### 2 185931, 0500900, 3857984, 75577284, 45383391, 1839274 ####[address] [address] WBC corrected for nucl RBC Auto (Bld) [#/Vol] 9.2 E9/L Normal 4.0-11.0 [facility] Comment on above: Performed By: #### 2 403484, 2716590, 8589341, 39016170, 10070545, 2672854 ####[address] [address] CBC w/Indiceson 06-28-2021 Erythrocyte distribution width (RBC) [Ratio] 14.2 % Normal 10.9-14.2 [facility] Comment on above: Performed By: #### 2 158024, 7202054, 3239359, 95093193, 3451685, 8587928 ####[address] [place] [address] Hematocrit (Bld) [Volume fraction] 44.1 % Normal 34.0-46.0 [facility] Comment on above: Performed By: #### 2 692787, 3633308, 9316423, 55120827, 3999518, 8672135 ####[address] [place] [address] Hemoglobin (Bld) [Mass/Vol] 14.5 g/dL Normal 12.0-16.0 [facility] Comment on above: Performed By: #### 2 312839, 6533501, 2268065, 77742612, 0176301, 6021454 ####[address] [place] [address] MCH (RBC) [Entitic mass] 29.7 pg Normal 27.0-34.0 [facility] Comment on above: Performed By: #### 2 501340, 2630577, 9729705, 74561788, 4544143, 8740281 ####[address] [address] MCHC (RBC) [Mass/Vol] 32.9 g/dL Normal 31.4-36.0 [facility] Comment on above: Performed By: #### 2 035381, 0372986, 5161956, 22631021, 2754738, 8991722 ####[address] [address] MCV (RBC) [Entitic vol] 90.5 fL Normal 80.0-100.0 [facility] Comment on above: Performed By: #### 2 242449, 2444541, 1398905, 77709316, 5371540, 3054956 ####[address] [address] Platelet mean volume (Bld) [Entitic vol] 7.9 fL Normal 6.4-10.8 [facility] Comment on above: Performed By: #### 2 580837, 0054155, 9958458, 43004528, 6135164, 8669098 ####[address] [place] [address] Platelets (Bld) [#/Vol] 289.0 E9/L Normal 150.0-500. 0 [facility] Comment on above: Performed By: #### 2 201453, 8749444, 0896736, 93833765, 0061395, 4667362 ####[address] [address] RBC (Bld) [#/Vol] 4.9 E12/L Normal 4.3-5.9 [facility] Comment on above: Performed By: #### 2 199985, 6141698, 2587178, 42557519, 6201617, 2453449 ####[facility] [address] [place] [address] WBC corrected for nucl RBC Auto (Bld) [#/Vol] 9.5 E9/L Normal 4.0-11.0 [facility] Comment on above: Performed By: #### 2 564300, 8865223, 7496489, 96858027, 4147752, 6169830 ####[facility] [address] [place] [address] Consent for Procedure/Surger yon 06-28-2021 Consent for Procedure/Surgery [id number]:127 Normal [facility] Consultation Noteon 06-28-20 Consultation Note Patient: MINAL TAMAYO Age: 65 years Sex: Female : 1955 Associated Diagnoses: None Author: Ignacio HATHAWAY, Judy Black Basic Information Time Seen: Date & Time 06/28/2021 14:31:00. Source of history: Medical personnel, Medical record, Patient. History limitation: None. History of Present Illness 65 yo F with hx of nephrolithiasis who presented to the [facility] ER yesterday with LLQ pain [...] cardiac hx and has never seen a assurance engineer. Father hx CHF. Currently denies fever, chills, [...] All Problems Abdominal pain / SNOMED CT 74343838 / Confirmed Arthritis / SNOMED CT 5235302 / Confirmed COPD mixed type / SNOMED CT 20485178 / Confirmed Feeling of incomplete bladder emptying / SNOMED CT 580892697 / Confirmed Hydronephrosis with obstructing calculus / SNOMED CT 38666102 / Confirmed Hypertension / SNOMED CT 2467736229 / Confirmed Kidney stone / SNOMED CT 093743910 / Confirmed left kidney, Active Problems (7) Abdominal pain Arthritis COPD mixed type Feeling of incomplete bladder emptying Hydronephrosis with obstructing calculus Hypertension Kidney stone Histories Past Medical History: No active or resolved past medical his (more content not included)... Normal [facility] Comment on above: Result Comment: Elec tronically Signed By: Ignacio HATHAWAY, Judy Acevedo.br\Date and Time Signed: 06/28/21 14:54 EDT Creatinineon 06-28-2021 Creatinine [Mass/Vol] 1.5 mg/dL High 0.5-1.3 [facility] Comment on above: Performed By: #### 2 819755, 2646540, 4531211, 80893741, 6953039, 2853137 ####[facility] [address] [place] [address] Glu Fastingon 06-28-2021 Glucose [Mass/Vol] 102 mg/dL High 55-99 [facility] Comment on above: Performed By: #### 2 893061, 6070990, 7580078, 19931338, 3512031, 2109038 ####[facility] [address] [place] [address] Immunization Recordson 06-28 Immunization Records [id number]:127 Normal [facility] Lyteson 06-28-2021 Anion gap [Moles/Vol] 15 mmol/L Normal 6-16 [facility] Comment on above: Performed By: #### 2 683338, 4731524, 5719295, 85455855, 9916702, 6900120 ####[facility] [address] [place] [address] Chloride [Moles/Vol] 101 mmol/L Normal 101-111 [facility] Comment on above: Performed By: #### 2 377698, 9973244, 7212689, 68906264, 7005854, 6375116 ####[facility] [address] [place] [address] CO2 [Moles/Vol] 27 mmol/L Normal 21-31 [facility] Comment on above: Performed By: #### 2 810934, 7734281, 9480546, 24061616, 6124013, 5129618 ####[facility] [address] [place] [address] Potassium [Moles/Vol] 3.7 mmol/L Normal 3.5-5.3 [facility] Comment on above: Performed By: #### 2 388261, 5060010, 3477094, 01365081, 7957898, 0317075 ####[facility] [address] [place] [address] Sodium [Moles/Vol] 139 mmol/L Normal 135-145 [facility] Comment on above: Performed By: #### 2 613259, 6637987, 9014654, 82051277, 8048317, 0152612 ####[facility] [address] [place] [address] Magnesiumon 06-28-2021 Magnesium [Mass/Vol] 1.9 mg/dL Normal 1.3-2.4 [facility] Comment on above: Performed By: #### 2 068798, 1081471, 2426702, 89059533, 50019299, 4479993 ####[facility] [address] [place] [address] Outside Radiologyon 06-28-20 21 Outside Radiology [id number]:127 Normal [facility] Patient Educationon 06-28-20 21 Patient Education [...] Follow these instructions at home: ? Take qhfd-hom-ctxobkq and prescription medicines only as told by [...] 06/08/2008 Document Revised: 08/23/2018 Document Reviewed: 08/23/2018 [employer] Patient Education ? 2019 Heap. Normal [facility] Troponin 0 Hr.on 06-28-2021 Troponin I.cardiac [Mass/Vol] 2.70 pg/mL Low 10.10-27.1 0 [facility] Comment on above: Result Comment: The 95% CI (Confidence Interval) PPV (Positive Predictive Value) for myocardial infarction in females is 38 pg/mL, in males 51 pg/mL. The results should be used in conjunction with clinical conditions of myocardial infarction. (Access High Sensitivity Troponin I Instructions For Use, [employer], March 2018) Performed By: #### 2 490820, 1329058, 3600637, 74263735, 66702030, 9651090 ####[facility] [address] [place] [address] Troponin 3 Hr.on 06-28-2021 Troponin I.cardiac [Mass/Vol] 3.00 pg/mL Low 10.10-27.1 0 [facility] Comment on above: Result Comment: The 95% CI (Confidence Interval) PPV (Positive Predictive Value) for myocardial infarction in females is 38 pg/mL, in males 51 pg/mL. The results should be used in conjunction with clinical conditions of myocardial infarction. (Access High Sensitivity Troponin I Instructions For Use, Rosalee Sumeet, March 2018) Performed By: #### 1 8567741 ####[facility] [address] [place] [address] UA With Cult Reflexon 2020 Bacteria LM Ql (Urine sed) TRACE Normal Trace [facility] Comment on above: Order Comment: Urina ry Catheter Insertion triggered Urinalysis With Culture Reflex order by discern. Performed By: #### 1 0688637 #### [facility] [address] [place] [address] Bilirubin Ql (U) Negative Normal Negative [facility] Comment on above: Order Comment: Urina ry Catheter Insertion triggered Urinalysis With Culture Reflex order by discern. Performed By: #### 1 8131162 #### [facility] [address] [place] [address] Calcium oxalate crystals LM Ql (Urine sed) Present Normal [facility] Comment on above: Order Comment: Urina ry Catheter Insertion triggered Urinalysis With Culture Reflex order by discern. Performed By: #### 1 0872102 #### [facility] [address] [place] [address] Clarity (U) CLEAR Normal Clear [facility] Comment on above: Order Comment: Urina ry Catheter Insertion triggered Urinalysis With Culture Reflex order by discern. Performed By: #### 1 7795663 #### [facility] [address] [place] [address] Color (U) YELLOW Normal Yellow [facility] Comment on above: Order Comment: Urina ry Catheter Insertion triggered Urinalysis With Culture Reflex order by discern. Performed By: #### 1 8836137 #### [facility] [address] [place] [address] Crystals LM Ql (Urine sed) Present Normal [facility] Comment on above: Order Comment: Urina ry Catheter Insertion triggered Urinalysis With Culture Reflex order by discern. Performed By: #### 1 5049699 #### [facility] [address] [place] [address] Epithelial cells.squamous LM.HPF (Urine sed) [#/Area] 3-4 Normal 0-2 [facility] Comment on above: Order Comment: Urina ry Catheter Insertion triggered Urinalysis With Culture Reflex order by discern. Performed By: #### 1 5467090 #### [facility] [address] [place] [address] Glucose Test strip (U) [Mass/Vol] Negative Normal Negative [facility] Comment on above: Order Comment: Urina ry Catheter Insertion triggered Urinalysis With Culture Reflex order by discern. Performed By: #### 1 7256820 #### [facility] [address] [place] [address] Hemoglobin Ql (U) 2+ Abnormal Negative [facility] Comment on above: Order Comment: Urina ry Catheter Insertion triggered Urinalysis With Culture Reflex order by discern. Performed By: #### 1 1237073 #### [facility] [address] [place] [address] Ketones (U) [Mass/Vol] 1+ Abnormal Negative [facility] Comment on above: Order Comment: Urina ry Catheter Insertion triggered Urinalysis With Culture Reflex order by discern. Performed By: #### 1 4798432 #### [facility] [address] [place] [address] [place].plasma/Lithi um.RBC (Bld) [Mass ratio] 21-30 Abnormal 0-3 [facility] Comment on above: Order Comment: Urina ry Catheter Insertion triggered Urinalysis With Culture Reflex order by discern. Performed By: #### 1 6814998 #### [facility] [address] [place] [address] Mucus Ql (Urine sed) 1+ Normal Fish [facility] Comment on above: Order Comment: Urina ry Catheter Insertion triggered Urinalysis With Culture Reflex order by discern. Performed By: #### 1 2765330 #### [facility] [address] [place] [address] Nitrite Ql (U) Negative Normal Negative [facility] Comment on above: Order Comment: Urina ry Catheter Insertion triggered Urinalysis With Culture Reflex order by discern. Performed By: #### 1 2470869 #### [facility] [address] [place] [address] pH (U) 5.5 [pH] Invalid Interpretation Code 5.0-9.0 [facility] Comment on above: Order Comment: Urina ry Catheter Insertion triggered Urinalysis With Culture Reflex order by discern. Performed By: #### 1 2166670 #### [facility] [address] [place] [address] Protein (U) [Mass/Vol] Negative Normal Negative [facility] Comment on above: Order Comment: Urina ry Catheter Insertion triggered Urinalysis With Culture Reflex order by discern. Performed By: #### 1 0854097 #### [facility] [address] [place] [address] Specific gravity (U) [Rel density] >=1.030 Invalid Interpretation Code 1.005-1.03 0 [facility] Comment on above: Order Comment: Urina ry Catheter Insertion triggered Urinalysis With Culture Reflex order by discern. Performed By: #### 1 8837425 #### [facility] [address] [place] [address] Type of Urine collection method Merino Normal [facility] Comment on above: Order Comment: Urina ry Catheter Insertion triggered Urinalysis With Culture Reflex order by discern. Performed By: #### 1 5972595 #### [facility] [address] [place] [address] Urobilinogen Qn (U) 0.2 {Gerber'U}/dL Normal 0.0-1.0 [facility] Comment on above: Order Comment: Urina ry Catheter Insertion triggered Urinalysis With Culture Reflex order by discern. Performed By: #### 1 7881740 #### [facility] [address] [place] [address] WBC Auto Ql (U) Negative Normal Negative [facility] Comment on above: Order Comment: Urina ry Catheter Insertion triggered Urinalysis With Culture Reflex order by discern. Performed By: #### 1 1705297 #### [facility] [address] [place] [address] WBC LM.HPF (Urine sed) [#/Area] 0-5 Normal 0-5 [facility] Comment on above: Order Comment: Urina ry Catheter Insertion triggered Urinalysis With Culture Reflex order by discern. Performed By: #### 1 7902690 #### [facility] [address] [place] [address] Urology Office/Clinic Noteon 06-28-2021 Urology Office/Clinic Note [...] UVJ stone with hydro on CT yesterday [facility] ER. pt continues to have severe pain despite toradol and percocet. pt's last po intake was a cracker at 5 am and a few sips of water around 8 am. no fever today. UA in clinic shows blood only. case discussed with Dr Pierre (monument erector MD). Will schedule cysto with possible stent [...] General anesthesia. [place] [facility] [place]. Ordered: Office Visit Level 5 Est 62896 Urnls Dip Stick Auto w/o Microscopy POC 75390 Follow-up With When Contact Information TREASURE HATHAWAY, EFREN [address] [address]- Additional Instructions: Patient Education Hydronephrosis Problem List/Past [...] Minerals Nexium 20 mg Cap-DR, Oral, Daily [place] 325 mg-5 mg oral tablet, 1 tab(s), [...] Protein Urine Dipstick: Trace (06/28/21 11:25:00) Specific [place] Urine Dipstick: >=1.030 (06/28/21 11:25:00) Urine Appearance Urine Dipstick: Clear (06/28/21 11:25:00) Urine Color Urine Dipstick: Yellow (06/28/21 11:25:00) Urobilinogen Urine Dipstick: Normal 0.2-1 EU/dl (06/28/21 11:25:00) pH Urine Dipstick: 5.5 (06/28/21 11:25:00) Normal [facility] Comment on above: Result Comment: Elec [...] 06/28/2021 2:42 pm Signed by: Farooq Mendiola MD. Transcribed by: BOOGIE Technologist: SHANI Normal [facility] XR Chest 2 Viewson XR Chest [...] M.D. Transcribed by: BOOGIE Technologist: SHANI Caceres [facility] eGFRon 06-28-2021 GFR/1.73 sq M.predicted among blacks MDRD (S/P/Bld) [Vol rate/Area] 42 mL/min/1.73 m2 Low >=59 [facility] Comment on above: Order Comment: Order added by Discern Expert. Result Comment: eGFR is race adjusted. AA=. Performed By: #### 2 942310, 4238191, 7288289, 30562595, 92683390, 2460596 ####[facility] [address] [place] [address] GFR/1.73 sq M.predicted among non-blacks MDRD (S/P/Bld) [Vol rate/Area] 35 mL/min/1.73 m2 Low >=59 [facility] Comment on above: Order Comment: Order added by Discern Expert. Result Comment: Cook Mayonnaise renetta kidney disease could be indicated at eGFR's of less than 60 mL/min/1.73m2. Kidney failure is indicated at less than 15 mL/min/1.73m2. Performed By: #### 2 683859, 6286978, 6374934, 09556671, 38089403, 2687553 ####[facility] [address] [place] [address] GFR/1.73 sq M.predicted among blacks MDRD (S/P/Bld) [Vol rate/Area] 42 mL/min/1.73 m2 Low >=59 [facility] Comment on above: Order Comment: Order added by Discern Expert. Result Comment: eGFR is race adjusted. AA=. Performed By: #### 2 235519, 3413079, 1440598, 53243703, 9009969, 4609678 ####[facility] [address] [place] [address] GFR/1.73 sq M.predicted among non-blacks MDRD (S/P/Bld) [Vol rate/Area] 35 mL/min/1.73 m2 Low >=59 [facility] Comment on above: Order Comment: Order added by Discern Expert. Result Comment: Cook Mayonnaise renetta kidney disease could be indicated at eGFR's of less than 60 mL/min/1.73m2. Kidney failure is indicated at less than 15 mL/min/1.73m2. Performed By: #### 2 511853, 5959517, 4714761, 55519822, 7310688, 5738077 ####[facility] [address] [place] [address] XR KNEE 3V AP/LAT/MERCHANT L Ton 10-02-2018 [...] IMPRESSION: 1. Postsurgical change. No complication identified.. Sales Compensation Analyst: [facility] Transcribe Date/Time: Oct 02 2018 10:08A Dictated by : JEANA HAWKINS MD This examination was interpreted and the report reviewed and electronically signed by: JEANA HAWKINS MD on Oct 02 2018 10:09AM EST [id number] XR KNEE 3V AP/LAT/MERCHANT R Ton 10-02-2018 [...] IMPRESSION: 1. Postsurgical change. No complication identified.. Sales Compensation Analyst: [facility] Transcribe Date/Time: Oct 02 2018 10:08A Dictated by : JEANA HAWKINS MD This examination was interpreted and the report reviewed and electronically signed by: JEANA HAWKINS MD on Oct 02 2018 10:09AM EST [id number] XR KNEE 3V AP/LAT/MERCHANT L Ton 05-19-2018 [...] interval complication. Small right-sided joint effusion suspected. 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 Small right-sided joint effusion suspected. Sales Compensation Analyst: [employer] Transcribe Date/Time: May 19 2018 12:19P Dictated by : MAYITO MCDONALD MD This examination was interpreted and the report reviewed and electronically signed by: MAYITO MCDONALD MD on May 19 2018 12:26PM EST [id number] Normal [facility] CASE MANAGEMon 04-03-2018 CASE MANAGEM HNO ID: [id number] Author: Tracie (Rn) MALORIE Hancock Service: Care Management Author Type: Registered Nurse Type: Care Mgt Progress Note Filed: 04/03/2018 12:18 PM Note Text: CARE MANAGEMENT DISCHARGE NOTE SERVICE DATE: 04/03/2018 SERVICE TIME: 04-03-18 LOS: 1 day Admission Date: 03/31/2018 DISCHARGE ARRANGEMENT (list agency and phone number) retirement facility: Was an expedited discharge program used? No Provider: [facility] CAREGIVER ASSESSMENT: Caregiver is ready, willing and able to meet the patient's needs as recommended by the inter-professional team? Yes Patient's transition needs and plan for meeting these needs: going to SNF Does the patient have an acute stroke diagnosis, or has the patient had a stroke during this admission? No HANDOFF COMMUNICATION: Dr. Trevino via [email or web address] faxed DC instructions TRANSPORTATION ARRANGEMENTS: Mode of Transportation: [employer] and Phone #: Javier Durant [phone] . Date of Trip: 04-03-18 Type of Service: BLS Non-emergency Is Patient Medicaid Pending: No Discussion of financial coverage occurred with Patient - she paid $402.00 up front via [employer] to Javier Durant . Wheel Alignment Technician Location: [facility] Destination: [facility] Financial Care Management Responsibility: None Estimated Charge: N/A Approving Travel Accommodations Rater: N/A ADDITIONAL CONTACT RESOURCES: Discharge Information Row Name Patient Update from 02/24/2018 in Orthopaedics Admission (Current) from 03/31/2018 in [facility] 5D Medical Follow-Up Appointment Specialty ? Congregational Ortho Provider Name ? Poornima Mcknight RN Address ? [address], [address], [place] ? [place] [address] Phone Number ? [phone] Appointment Date ? 04/21/18 Appointment Time ? 2:00PM Additonal Instructions ? Patient should bring the following to appointment: Picture ID, Insurance Card, Copay (if applicable), Medications/Med List. Please provide a minimum of 24 hours' notice for cancelations/rescheduling. Needs Prior to Discharge: Ready for Discharge SIGNATURE: Tracie Hancock RN PATIENT NAME: Minal Caputo DATE: April 03, 2018 TIME: 12:13 PM PAGER/CONTACT #: [phone] [facility] CONSULT PROGon 04-03-2018 Protein mass conc HNO ID: [id number] Author: Jose Velasco (Pa) Service: Pain Management Author Type: Physician Safety Sealer Type: Consult Progress Note Filed: 04/03/2018 10:49 [...] - , CLASSIC, IN-HOSP CARE 1980 - [facility] AFTER DELIVERY - PAST SURGICAL HISTORY OF [...] 03, 2018 TIME: 10:46 AM [facility] NURSING PROGon 04-03-2018 Protein mass conc HNO ID: [id number] Author: Radha (Rn) MALORIE Hough Service: Nursing Author Type: Registered Nurse Type: Nursing Progress Note Filed: 04/03/2018 3:07 PM Note Text: Nursing Progress Note Patient Name: Minal Caputo Patient Location: [address]/[place] [address] Daily Note:Report called to LENIN Duncan at [phone] This note was completed by: Radha Hough RN [facility] PROGRESSon 04-03-2018 Protein mass conc HNO ID: [id number] Author: Elaine Alcala Service: Orthopaedic Surgery Author [...] today. Elaine Alcala MD Resident, Orthopaedic Surgery [phone] April 03, 2018 [facility] THERAPY NTon 04-03-2018 THERAPY NT HNO ID: [id number] Author: Barbara (PtStan Felder Service: Physical Therapy Author Type: Physical Therapist Type: Therapy (PT/OT/Speech/Resp) Filed: 04/03/2018 2:28 PM Note Text: Physical Therapy Treatment SERVICE DATE: 04/03/2018 SERVICE TIME: 1134 to 1205 ROOM: [id number] Recommended Discharge Disposition: Subacute/SNF Justification For Post [...] Diagnosis: Reduced mobility-other Interventions Provided: Therapeutic Exercise (28469);Gait Training (87481) Therapeutic Exercise (51135) Treatment Minutes: 21 1 unit Skilled Intervention(s): Instruction in therapeutic exercise anti-embolitics and TKR exercises. Verbal and tactile cuing provided . Education in TKR precautions, HEP, POC, nonpharm pain management, and importance of repositioning/activity. Performed anti-embolitics and TKR exercises bilaterally ([id number]). Gait Training (83808) Treatment Minutes: 10 1 unit Skilled Intervention(s): [...] for this therapy evaluation/treatment. SIGNATURE: Rupesh Anthony, CRISTOPHER PATIENT NAME: Minal Caputo DATE: April 03, 2018 TIME: 12:17 PM I reviewed and agree with the documentation corresponding to this therapy visit. SIGNATURE: Barbara Felder, PT DATE: April 03, 2018 TIME: 2:28 PM Normal [facility] Basic Metabolic Panlon 04-02 Anion gap molar conc 11 mmol/L Normal -18 [facility] Comment on above: Performed By: #### T SCR30 #### [place] [address] Calcium mass conc 8.2 mg/dL Low 8.5-10.2 [facility] Comment on above: Performed By: #### T SCR30 #### [place] [address] Chloride molar conc 100 mmol/L Normal 97-105 [facility] Comment on above: Performed By: #### T SCR30 #### [place] [address] CO2 molar conc 25 mmol/L Normal 22-30 [facility] Comment on above: Performed By: #### T SCR30 #### [place] [address] Creatinine mass conc 0.83 mg/dL Normal 0.58-0.96 [facility] Comment on above: Performed By: #### T SCR30 #### [place] [address] eGFR- Amer. >60 Normal >60 [facility] Comment on above: Performed By: #### T SCR30 #### [place] [address] GFR/1.73 sq M predicted among non-blacks MDRD vol rate/area (S/P/Bld) mL/min/{1.73_m2} Normal >60 [facility] Comment on above: Performed By: #### T SCR30 #### [place] [address] Glucose mass conc 129 mg/dL High 74-99 [facility] Comment on above: Performed By: #### T SCR30 #### [place] [address] Potassium molar conc 4.1 mmol/L Normal 3.7-5.1 [facility] Comment on above: Performed By: #### T SCR30 #### [place] [address] Sodium molar conc 136 mmol/L Normal 136-144 [facility] Comment on above: Performed By: #### T SCR30 #### [place] [address] Urea nitrogen mass conc 16 mg/dL Normal 7-21 [facility] Comment on above: Performed By: #### T SCR30 #### [place] [address] CASE MANAGEMon 04-02-2018 CASE MANAGEM HNO ID: [id number] Author: Tracie Spring) MALORIE Hancock Service: Care Management Author Type: Registered Nurse Type: Care Mgt Progress Note Filed: 04/02/2018 9:17 AM Note Text: CARE MANAGEMENT PROGRESS NOTE SERVICE DATE: 04/02/2018 SERVICE TIME: 9:16 am LOS: 1 day Observation letter given to Minal Patito on 04-01-18 SIGNATURE: Tracie Hancock RN PATIENT NAME: Minal Caputo DATE: April 02, 2018 TIME: 9:16 AM PAGER/CONTACT #: [phone] Normal [facility] CBC and Differentialon 04-02 Abs Baso <0.03 Normal <0.11 [facility] Comment on above: Performed By: #### T SCR30 #### [place] [address] Abs Garza 1.54 k/uL High <0.87 [facility] Comment on above: Performed By: #### T SCR30 #### [place] [address] Abs Neut 7.77 k/uL High 1.45-7.50 [facility] Comment on above: Performed By: #### T SCR30 #### [place] [address] Basophils/100 WBC (Bld) 0.2 % Normal [facility] Comment on above: Performed By: #### T SCR30 #### [place] [address] Eosinophils #/vol (Bld) 0.07 10*3/uL Normal <0.46 [facility] Comment on above: Performed By: #### T SCR30 #### [place] [address] Eosinophils/100 WBC (Bld) 0.6 % Normal [facility] Comment on above: Performed By: #### T SCR30 #### [place] [address] Erythrocyte distribution width Ratio (RBC) 13.9 % Normal 11.5-15.0 [facility] Comment on above: Performed By: #### T SCR30 #### [place] [address] Hematocrit Volume Fraction (Bld) 31.7 % Low 36.0-46.0 [facility] Comment on above: Performed By: #### T SCR30 #### [place] [address] Hemoglobin mass conc (Bld) 10.2 g/dL Low 11.5-15.5 [facility] Comment on above: Performed By: #### T SCR30 #### [place] [address] Lymphocytes #/vol (Bld) 2.68 10*3/uL Normal 1.00-4.00 [facility] Comment on above: Performed By: #### T SCR30 #### [place] [address] Lymphocytes/100 WBC (Bld) 22.2 % Normal [facility] Comment on above: Performed By: #### T SCR30 #### [place] [address] MCH Entitic mass (RBC) 30.3 pG Normal 26.0-34.0 [facility] Comment on above: Performed By: #### T SCR30 #### [place] [address] MCHC mass conc (RBC) 32.2 g/dL Normal 30.5-36.0 [facility] Comment on above: Performed By: #### T SCR30 #### [place] [address] MCV Entitic volume (RBC) 94.1 fL Normal 80.0-100.0 [facility] Comment on above: Performed By: #### T SCR30 #### [place] [address] Monocytes/100 WBC (Bld) 12.7 % Normal [facility] Comment on above: Performed By: #### T SCR30 #### [place] [address] Neutrophils/100 WBC (Bld) 64.3 % Normal [facility] Comment on above: Performed By: #### T SCR30 #### [place] [address] NRBCs 0.0 /100 WBC Normal 0 [facility] Comment on above: Performed By: #### T SCR30 #### [place] [address] Platelet mean volume Entitic volume (Bld) 10.9 fL Normal 9.0-12.7 [facility] Comment on above: Performed By: #### T SCR30 #### [place] [address] Platelets #/vol (Bld) 263 10*3/uL Normal 150-400 [facility] Comment on above: Performed By: #### T SCR30 #### [place] [address] RBC #/vol (Bld) 3.37 10*6/uL Low 3.90-5.20 [facility] Comment on above: Performed By: #### T SCR30 #### [place] [address] WBC #/vol (Bld) 12.08 10*3/uL High 3.70-11.00 [facility] Comment on above: Performed By: #### T SCR30 #### [place] [address] CONSULTon 04-02-2018 CONSULT HNO ID: [id number] Author: Jose Velasco (Pa) Service: Pain Management Author Type: Physician Safety Sealer Type: Consults Filed: 04/02/2018 3:15 PM Note [...] - , CLASSIC, IN-HOSP CARE 1980 - [facility] AFTER DELIVERY - PAST SURGICAL HISTORY OF [...] 02, 2018 TIME: 3:08 PM [facility] PROGRESSon 04-02-2018 Protein mass conc HNO ID: [id number] Author: Jennifer Calvo ([facility]-) David Service: Hospital Medicine Author Type: [...] with more than 50% of the total qoia-lj-sayj time of the visit in counseling / coordination of care. [facility] Protein mass conc HNO ID: [id number] Author: Ady Brizuela Service: General Internal Medicine [...] 04/28/18 2359 03/31/18 2030 pneumatic compression stockings ([place]) 03/31/18 2030 activity - mobilize patient ([place]) 03/31/18 1030 graduated compression stockings [place] VTE Prophylaxis: VTE prophylaxis appropriate SIGNATURE: Ady Brizuela MD PATIENT NAME: Minal Caputo DATE: April 02, 2018 TIME: 3:40 PM PAGER: [phone] [facility] Protein mass conc HNO ID: [id number] Author: Elaine Alcala Service: Orthopaedic Surgery Author [...] today. Elaine Alcala MD Resident, Orthopaedic Surgery [id number] April 02, 2018 10:37 AM [facility] THERAPY NTon 04-02-2018 THERAPY NT HNO ID: [id number] Author: Barbara (Pt) Bradford Service: Physical Therapy Author Type: Physical Therapist Type: Therapy (PT/OT/Speech/Resp) Filed: 04/02/2018 4:54 PM Note Text: Physical Therapy Treatment SERVICE DATE: 04/02/2018 SERVICE TIME: 1536 to 1610 ROOM: [place] [address] Recommended Discharge Disposition: Subacute/SNF Justification For Post [...] Diagnosis: Reduced mobility-other Interventions Provided: Therapeutic Exercise (41330);Therapeutic Activity (93749) Therapeutic Exercise (64857) Treatment Minutes: 14 1 unit Skilled Intervention(s): Instruction in therapeutic exercise seated TKR exercises. Verbal and tactile cuing provided . Education in HEP, POC, nonpharm pain management and importance of repositioning/activity. Performed seated TKR exercises ([id number]). Therapeutic Activity (88693) Treatment Minutes: 20 1 unit Skilled Intervention(s): [...] corresponding to this therapy visit. SIGNATURE: Barbara Felder, PT DATE: April 02, 2018 TIME: 4:53 PM [facility] THERAPY NT HNO ID: [id number] Author: Barbara (Pt) Bradford Service: Physical Therapy Author Type: Physical Therapist Type: Therapy (PT/OT/Speech/Resp) Filed: 04/02/2018 2:03 PM Note Text: Physical Therapy Treatment SERVICE DATE: 04/02/2018 SERVICE TIME: 1055 to 1118 ROOM: [place] [address] Recommended Discharge Disposition: Subacute/SNF Justification For Post [...] Diagnosis: Reduced mobility-other Interventions Provided: Therapeutic Exercise (78877) Therapeutic Exercise (27550) Treatment Minutes: 23 2 units Skilled Intervention(s): Instruction in therapeutic exercise anti-embolitics and TKR exercises. Verbal and tactile cuing provided . Education in HEP, POC, nonpharm pain management, and importance of repositioning/activity. Performed anti-embolitics and supine TKR exercises ([id number] bilat). Total Timed Code Treatment Minutes: 23 [...] 02, 2018 TIME: 2:02 PM [facility] THERAPY NT HNO ID: [id number] Author: Zacarias Dominguez/Mychal Rouse Service: Occupational Therapy Author Type: Occupational Therapist Type: Therapy (PT/OT/Speech/Resp) Filed: 04/02/2018 9:45 AM Note Text: Occupational Therapy Treatment SERVICE DATE: 04/02/2018 SERVICE TIME: 853 to 921 ROOM: [place] [address] Recommended Discharge Disposition: Subacute/SNF Justification For Post [...] daily living (ADL) Interventions Provided: Therapeutic Activity (76419);Self Correction Management (59571) Self Correction Management (67649) Treatment Minutes: 14 1 unit Skilled Intervention(s): [...] 0854) Self Care Current Status (G8987): CK (04/01/181124) [...] corresponding to this therapy visit. SIGNATURE: LAMAR English/L DATE: April 02, 2018 TIME: 9:43 AM [facility] Basic Metabolic Panlon 04-01 Anion gap molar conc 12 mmol/L Normal 9-18 [facility] Comment on above: Performed By: #### C BC, BMP ####[place] [id number] Calcium mass conc 8.3 mg/dL Low 8.5-10.2 [facility] Comment on above: Performed By: #### C BC, BMP ####[place] [id number] Chloride molar conc 102 mmol/L Normal 97-105 [facility] Comment on above: Performed By: #### C BC, BMP ####[place] [id number] CO2 molar conc 24 mmol/L Normal 22-30 [facility] Comment on above: Performed By: #### C BC, BMP ####[place] [id number] Creatinine mass conc 0.86 mg/dL Normal 0.58-0.96 [facility] Comment on above: Performed By: #### C BC, BMP ####[place] [id number] eGFR- Amer. >60 Normal >60 [facility] Comment on above: Performed By: #### C BC, BMP ####[place] [id number] GFR/1.73 sq M predicted among non-blacks MDRD vol rate/area (S/P/Bld) mL/min/{1.73_m2} Normal >60 [facility] Comment on above: Performed By: #### C BC, BMP ####[place] [id number] Glucose mass conc 152 mg/dL High 74-99 [facility] Comment on above: Performed By: #### C BC, BMP ####[place] [id number] Potassium molar conc 4.0 mmol/L Normal 3.7-5.1 [facility] Comment on above: Performed By: #### C BC, BMP ####[facility] [phone] Sodium molar conc 138 mmol/L Normal 136-144 [facility] Comment on above: Performed By: #### C BC, BMP ####[facility] [phone] Urea nitrogen mass conc 16 mg/dL Normal 7-21 [facility] Comment on above: Performed By: #### C BC, BMP ####[facility] [phone] CASE MANAGEMon 04-01-2018 CASE MANAGEM HNO ID: [id number] Author: Tracie (Rn) MALORIE Hancock Service: Care [...] (Osteoarthritis) of Knee Attendees Present at Rounds: Sports Specialist: Nurse Travel Accommodations Rater/Safety Sealer Nurse Travel Accommodations Rater: Patient: Minal Campos Patito Pharmacy: Physical Therapy: Provider: Staff Nurse: Needs [...] April 01, 2018 TIME: 10:02 AM CSN: [id number] [facility]: [id number] Author: Tracie (Rn) MALORIE Hancock Service: Care Management Author Type: Registered Nurse Type: Care Mgt Initial Assessment Filed: 04/01/2018 10:12 AM Note Text: CARE MANAGEMENT: ASSESSMENT AND DISCHARGE PLAN SERVICE DATE: 04/01/2018 SERVICE TIME: 10:05 am PRIMARY CARE PHYSICIAN: Rita Amanda MD ADMISSION STATUS: Inpatient Needs Prior to Discharge: OT/PT Evaluation;Other: See Comment (home vs rehab TBD) MEDICAL: Patient/Mica Layer Stated Goals: To have reduction in pain To have reduction in symptoms To improve my functional status Health Insurance: [employer] Health Issues Impacting Discharge Plan: hiatal hernia, [...] 0 I feel financially burdened by my rmw-vh-jexajk expenses for my prescription medication: Disagree completely [...] 01, 2018 TIME: 10:05 AM PAGER/CONTACT #: [phone] Normal [facility] CBCon 04-01-2018 Erythrocyte distribution width Ratio (RBC) 14.0 % Normal 11.5-15.0 [facility] Comment on above: Performed By: #### C BC, BMP ####[facility] [phone] Hematocrit Volume Fraction (Bld) 34.0 % Low 36.0-46.0 [facility] Comment on above: Performed By: #### C BC, BMP ####[place] [id number] Hemoglobin mass conc (Bld) 11.1 g/dL Low 11.5-15.5 [facility] Comment on above: Performed By: #### C BC, BMP ####[address] MCH Entitic mass (RBC) 30.4 pG Normal 26.0-34.0 [facility] Comment on above: Performed By: #### C BC, BMP ####[place] [id number] MCHC mass conc (RBC) 32.6 g/dL Normal 30.5-36.0 [facility] Comment on above: Performed By: #### C BC, BMP ####[place] [id number] MCV Entitic volume (RBC) 93.2 fL Normal 80.0-100.0 [facility] Comment on above: Performed By: #### C BC, BMP ####[address] Platelet mean volume Entitic volume (Bld) 10.9 fL Normal 9.0-12.7 [facility] Comment on above: Performed By: #### C BC, BMP ####[address] Platelets #/vol (Bld) 290 10*3/uL Normal 150-400 [facility] Comment on above: Performed By: #### C BC, BMP ####[address] RBC #/vol (Bld) 3.65 10*6/uL Low 3.90-5.20 [facility] Comment on above: Performed By: #### C BC, BMP ####[address] WBC #/vol (Bld) 15.94 10*3/uL High 3.70-11.00 [facility] Comment on above: Performed By: #### C , [facility] ####[place] [address] [address] [phone] CONSULTon 04-01-2018 CONSULT HNO ID: [id number] Author: Ady Brizuela Service: General Internal Medicine [...] 04/01/2018 Neut% 55.6 03/19/2018 Lymph% 31.7 03/19/2018 Garza% 6.4 03/19/2018 Eosin% 5.5 03/19/2018 Baso% 0.8 03/19/2018 Abs Neut (ANC) 4.39 03/19/2018 Abs Garza 0.51 03/19/2018 Abs Eosin 0.44 03/19/2018 Abs [...] April 01, 2018 TIME: 8:53 AM PAGER: [phone] [facility] NURSING PROGon 04-01-2018 Protein mass conc HNO ID: [id number] Author: Pat Newman RN (Acn) Service: (none) Author Type: Advance Clinical Nurse Type: Nursing Progress Note Filed: 04/01/2018 3:43 PM Note Text: Nursing Progress Note Patient Name: Minal Caputo Patient Location: [facility]-[id number] Daily Note: Reviewed isometric and incentive spirometry [...] note was completed by: Pat Newman, RN [facility] Protein mass conc HNO ID: [id number] Author: Romana (Rn) Jones, RN Service: (none) Author Type: Registered Nurse Type: Nursing Progress Note Filed: 03/31/2018 10:37 PM Note Text: Nursing Progress Note Patient Name: Minal Caputo Patient [facility]/[id number] Daily Note:2045 pt drowsy, pt VSS at this time. Pt placed on continuous pulse ox in room, on 3L/O2 at 97% NC. Pt has strong and equal p/p, no N/T, no N/V, with good sensation and pulse. Call light within reach. This note was completed by: Romana Goldman, MALORIE [facility] PROGRESSon 04-01-2018 Protein mass conc HNO ID: [id number] Author: Jennifer Calvo ([facility]-) David Service: Hospital Medicine Author Type: [...] with more than 50% of the total qheg-zr-pmmy time of the visit in counseling / coordination of care. [facility] Protein mass conc HNO ID: [id number] Author: Elaine Alcala Service: Orthopaedic Surgery Author [...] tomorrow. Elaine Alcala MD Resident, Orthopaedic Surgery [id number] 04/01/2018 12:21 PM Please page 2BONE ([id number]) from 5p-6a and on weekends for any issues. [facility] THERAPY NTon 04-01-2018 THERAPY NT HNO ID: [id number] Author: Barbara (PtStan Felder Service: Physical Therapy Author Type: Physical Therapist Type: Therapy (PT/OT/Speech/Resp) Filed: 04/01/2018 4:00 PM Note Text: Physical Therapy Evaluation SERVICE DATE: 04/01/2018 SERVICE TIME: 1358 to 1501 ROOM: [place] [address] Recommended Discharge Disposition: Subacute/SNF Justification For Post [...] Diagnosis: Reduced mobility-other Interventions Provided: Evaluation;Therapeutic Exercise (17665);Therapeutic Activity (60709);Gait Training (26525) $ Evaluation-Low (54399) Billed Units: 1 unit Therapeutic Exercise (05921) Treatment Minutes: 20 1 unit Skilled Intervention(s): Instruction in therapeutic exercise supine TKR exercises Verbal and tactile cuing provided . Education in HEp and TKR booklet Therapeutic Activity (74777) Treatment Minutes: 10 1 unit Skilled Intervention(s): Instructed patient in supine to sit pushing with upper extremities to sit up Instructed patient in sit to supine using safe, effective technique Education with POC, precuations, nonpharm pain control techniques Gait Training (16292) Treatment Minutes: 10 1 unit Skilled Intervention(s): [...] period of 04/01/2018 through 04/15/2018. [facility] THERAPY NT O ID: [id number] Author: Zacarias Dominguez/Mychal Rouse Service: Occupational Therapy Author Type: Occupational Therapist Type: Therapy (PT/OT/Speech/Resp) Filed: 04/01/2018 1:22 PM Note Text: Occupational Therapy Evaluation SERVICE DATE: 04/01/2018 SERVICE TIME: 1125 to 1202 ROOM: [place] [address] Recommended Discharge Disposition: Subacute/SNF Justification For Post [...] of daily living (ADL) Interventions Provided: Evaluation;Self Correction Management (59315) $ Evaluation-Low (01145) Billed Units: 1 unit Self Correction Management (47701) Treatment Minutes: 22 1 unit Skilled Intervention(s): [...] 112) Self Care Current Status (G8987): CK (04/01/181124) [...] 01, 2018 TIME: 1:22 PM [facility] THERAPY NT HNO ID: [id number] Author: Barbara Felder Service: Physical Therapy Author Type: Physical Therapist Type: Therapy (PT/OT/Speech/Resp) Filed: 04/01/2018 11:59 AM Note Text: PHYSICAL THERAPY MISSED VISIT SERVICE DATE: 04/01/2018 SERVICE TIME: 1145 to 1145 ROOM: [id number] Attempted Evaluation. Patient not seen due to Another service at bedside. OT bedside SIGNATURE: Barbara Felder PT PATIENT NAME: Minal Caputo DATE: April 01, 2018 TIME: 11:58 AM [facility] ANES Angel 03-31-2018 ANES POST HNO ID: [id number] Author: Day Walker Service: Anesthesiology Author Type: [...] TIME: 5:16 PM PAGER/CONTACT #: [facility] ANES PREOPon 03-31-2018 ANES PREOP HNO ID: [id number] Author: Skye An Service: Anesthesiology Author Type: [...] injection (XYLOCAINE) 0.1-0.2 mL INTRADERMAL PRN Donte Belle Freestone lactated ringers infusion 5-30 mL/hr INTRAVENOUS CONTINUOUS Donte L Freestone Last Rate: 30 mL/hr at 03/31/18 1150 30 mL/hr at 03/31/18 1150 celecoxib 200 mg cap(s) (CeleBREX) 200 mg ORAL Pre-Op Once Donte L Freestone ceFAZolin 3 g in D5W 100 mL (ANCEF) 3 g INTRAVENOUS ONCE Donte L Uriel Allergies: ALLERGIES Allergen Reactions - Adhesive Bandages [...] March 31, 2018 TIME: 12:06 PM CSN: [id number] [facility] BRIEF OP NOTon 03-31-2018 BRIEF OP NOT HNO ID: [id number] Author: Donte Trevino Service: Orthopaedic Surgery Author Type: Physician Type: Brief Op Note Filed: 03/31/2018 4:59 PM Note Text: BRIEF OP NOTE LOG ID: [id number] Surgery/Procedure Date: 03/31/2018 Incision/Procedure Start Time: 1:54 PM Incision Close/Procedure End Time: 4:40 PM Surgeon(s)/Proceduralist(s ) and Safety Sealer(s): Surgeon(s) and Role: * Donte Trevino - Primary * Elaine Alcala - Resident - Assisting * Froylan (Res) Denise - Resident - Assisting Procedure(s): bilateral TKAs Anesthesia: General Findings: DJD Estimated Blood Loss: 100 mls Specimens: None Complications: Fx medial tibial plateau right tibia Pre-Op/Pre-Procedure Diagnosis: As below Post-Op/Post-Procedure Diagnosis: Arthritis of both knees [M17.0] SIGNATURE: Elaine Alcala MD PATIENT NAME: Minal Caputo DATE: March 31, 2018 TIME: 4:50 PM PAGER/CONTACT #: [facility] NURSING PROGon 03-31-2018 Protein mass conc HNO ID: [id number] Author: Amy (Rn) MALORIE Mcdonnell Service: (none) Author Type: Registered Nurse Type: Nursing Progress Note Filed: 03/31/2018 6:33 PM Note Text: Nursing Progress Note Patient Name: Minal Caputo [facility] Daily Note: Patient with decreased respirations and O2 sat of 70-80%'s. here nasal and oral airways inserted. Narcan given as ordered patient bagged at this time. 1758 Second dose of narcan given as ordered. Patient continues to be bagged by 180 O2 sat remains 80'-90's third dose of Narcan given as ordered. 181 More awake moaning Oral airway out per patient Nasal airway remains in place. 180 O2 sat 90's respirations 10 to 12, fourth dose of Narcan given as ordered. 1830 Family in PACU to see patient and aware of delay in PACU for two hours. Patient shivering warm blankets applied. This note was completed by: Amy Mcdonnell RN [facility] Protein mass conc HNO ID: [id number] Author: Rosa JulianRn) MALORIE Zarco Service: Nursing Author Type: Registered Nurse Type: Nursing Progress Note Filed: 03/31/2018 4:54 PM Note Text: Discharge Status: Patient is Awakening, and is extubated. Skin condition was warm. Transported to recovery room via bed with siderails up. Accompanied by highway maintainer and resident. [facility] Protein mass conc HNO ID: [id number] Author: Rosa JulianRn) MALORIE Zarco Service: Nursing [...] and providing warm irrigation fluid. [facility] Protein mass conc HNO ID: [id number] Author: Lolis JulianRn) MALORIE Jin Service: (none) Author Type: Registered Nurse Type: Nursing Progress Note Filed: 03/31/2018 11:48 AM Note Text: Nursing Progress Note Patient Name: Minal Caputo [facility] Daily Note: Pt aware of procedure. Alert and oriented x 3. Pt states just discomfort in bilateral knees while lying in the bed. 2+ dp/pt pulses to bilateral feet. Adequate push/pulls to bilateral feet. IV tolerated well. IV fluids running. Safety maintained. This note was completed by: Lolis Jin RN [facility] OPERATIVE NOon 03-31-2018 OPERATIVE NO HNO ID: [id number] Author: Donte Trevino Service: Orthopaedic Surgery Author Type: Physician Type: Operative Report Filed: 03/31/2018 5:40 PM Note Text: OPERATIVE/PROCEDURE REPORT LOG ID: [id number] Surgery/Procedure Date: 03/31/2018 Incision/Procedure Start Time: 1:54 PM Incision Close/Procedure End Time: 4:40 PM Surgeon(s)/Proceduralist(s ) and Safety Sealer(s): Surgeon(s) and Role: * Donte Trevino - [...] Implant Name Type Inv. Item Serial No. Vertica Architect Lot No. LRB Model Num No. Used CEMENT SIMPLEX P BONE RADIOPAQUE FULL DOSE - [id number] Cement / Putty CEMENT SIMPLEX P BONE RADIOPAQUE FULL DOSE ANTONI [id number] Right [id number] CEMENT SIMPLEX P BONE RADIOPAQUE FULL DOSE - [id number] Cement / Putty CEMENT SIMPLEX P BONE RADIOPAQUE FULL DOSE ANTONI [id number] Left [id number] 2 BASEPLATE TRIATHLON 4 UNIVERSAL COCR TIBIAL TOTAL STABILIZE CEMENTED KNEE - [id number] Plate BASEPLATE TRIATHLON 4 UNIVERSAL COCR TIBIAL TOTAL STABILIZE CEMENTED KNEE STRY/[employer] [id number] Left [id number] COMPONENT TRIATHLON 33MM X3 9MM PATELLAR SYMMETRIC KNEE SUPERIOR - [id number] Joint - Knee COMPONENT TRIATHLON 33MM X3 9MM PATELLAR SYMMETRIC KNEE SUPERIOR STRY/[employer] [id number] Left [id number] 1 COMPONENT TRIATHLON 4 FEMORAL CEMENTED POSTERIOR STABILIZE KNEE LEFT - [id number] Joint COMPONENT TRIATHLON 4 FEMORAL CEMENTED POSTERIOR STABILIZE KNEE LEFT STRY/[employer] [id number] Left [id number] 1 INSERT TRIATHLON 4 X3 11MM TIBIAL BEARING POSTERIOR STABILIZE KNEE - [id number] Joint - Knee INSERT TRIATHLON 4 X3 11MM TIBIAL BEARING POSTERIOR STABILIZE KNEE STRY/[employer] [id number] Left [id number] 1 CEMENT SIMPLEX P BONE RADIOPAQUE FULL DOSE - [id number] Cement / Putty CEMENT SIMPLEX P BONE RADIOPAQUE FULL DOSE ANTONI [id number] Right [id number] 1 COMPONENT TRIATHLON 33MM X3 9MM PATELLAR SYMMETRIC KNEE SUPERIOR - [id number] Joint - Knee COMPONENT TRIATHLON 33MM X3 9MM PATELLAR SYMMETRIC KNEE SUPERIOR STRY/[employer] [id number] Right 5550-L-339 1 BASEPLATE TRIATHLON 4 UNIVERSAL COCR TIBIAL TOTAL STABILIZE CEMENTED KNEE - [id number] Plate BASEPLATE TRIATHLON 4 UNIVERSAL COCR TIBIAL TOTAL STABILIZE CEMENTED KNEE [employer]Y/[employer] [id number] Right [id number] 1 COMPONENT TRIATHLON 4 FEMORAL CEMENTED POSTERIOR STABILIZE KNEE RIGHT - Joint - Knee COMPONENT TRIATHLON 4 FEMORAL CEMENTED POSTERIOR STABILIZE KNEE RIGHT STRY/[employer] [id number] Right [id number] 1 STEM TRIATHLON 12MM COCR 50MM FEMORAL CEMENTED TOTAL STABILIZED KNEE - [id number] Joint - Knee STEM TRIATHLON 12MM COCR 50MM FEMORAL CEMENTED TOTAL STABILIZED KNEE [employer]Y/[employer] [id number] Right [id number] 1 SCREW LCP 6.5MM 8MM PARTIAL THREAD STAINLESS STEEL 45MM 32MM BONE LARGE - [id number] Screw SCREW LCP 6.5MM 8MM PARTIAL THREAD STAINLESS STEEL 45MM 32MM BONE LARGE [employer] Right 217.045 1 WASHER LCP 13MM 6.6MM STAINLESS STEEL ORTHOPEDIC 4.5-7.3MM SCREW NONSTERILE - [id number] Screw WASHER LCP 13MM 6.6MM STAINLESS STEEL ORTHOPEDIC 4.5-7.3MM SCREW NONSTERILE [employer] Right 219.99 2 SCREW LCP 6.5MM 8MM FULL THREAD STAINLESS STEEL 35MM BONE LARGE HEXAGONAL - [id number] Screw SCREW LCP 6.5MM 8MM FULL THREAD STAINLESS STEEL 35MM BONE LARGE HEXAGONAL [employer] Right 218.035 1 INSERT TRIATHLON 4 X3 9MM TIBIAL POSTERIOR STABILIZE KNEE - [id number] Joint - Knee INSERT TRIATHLON 4 X3 9MM TIBIAL POSTERIOR STABILIZE KNEE [facility] [id number] Right [id number] 1 PROBLEM LIST: ACTIVE PROBLEM LIST Spinal [...] cuts were made for the femoral component. coat cutter was used to remove notch bone.Attention [...] TIME: 5:01 PM PAGER/CONTACT #: [facility] PT EDon 03-31-2018 PT ED HNO ID: [id number] Author: Karly (Rn) MALORIE Mendoza Service: Nursing [...] None REFERRAL (RECOMMENDATION): None Electronically Signed By: Karyl Mendoza RN [facility] XR KNEE 2V AP/LAT RTon 03-31 [...] recent surgery. IMPRESSION: Satisfactory postoperative right knee. Sales Compensation Analyst: PSCB Transcribe Date/Time: Mar 31 2018 6:26P Dictated by : GARRETT REYES MD This examination was interpreted and the report reviewed and electronically signed by: GARRETT REYES MD on Mar 31 2018 6:27PM EST [id number] [facility] NURSING PROGon 03-26-2018 Protein mass conc HNO ID: [id number] Author: Poornima (Rn) Pinky, RN Service: (none) Author Type: Registered Nurse [...] office visit with Dr. Roldan, note in [facility] includes the followin. Patient was informed of the skin testing result. Since she also has (-) oral challenge, she has no penicillin allergy Chart check complete. 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 She is referred [...] - , CLASSIC, IN-HOSP CARE 1980 - [facility] AFTER DELIVERY - PAST SURGICAL HISTORY OF [...] 10:47 AM Signed Penicillin G Sodium Lot #[id number] Exp. 03/27/18 [facility] NDC: 5725-5669-44 Prepen Lot #[id number] Exp. 06/13 [employer] NDC: 19131-018-94 0.9% Sodium chloride Inj Lot# [id number] Exp. 07/26/2019 [facility] NDC:2944-9115-14 Skin testing at 15 minute intervals. Prick [...] ?0/0 ORAL Antibiotic?Challenge ? Amoxicillin 250mg/5ml Lot: [id number] Exp: 04/03/2018 ? Given at 0830 Dose:?250 mg/5ml Observed for 60 minutes. Patient denies any symptoms of adverse reaction (rash/hives/itching/swelli ng/breathing difficulties). ? Patient was evaluated by physician and discharged from clinic at 0930. [facility] XR KNEE 4V AP/PA BOTH+LAT/ME R [...] Degenerative changes with no acute process seen. Sales Compensation Analyst: BEA Transcribe Date/Time: Feb 24 2018 11:07A Dictated by : MAYITO MCDONALD MD This examination was interpreted and the report reviewed and electronically signed by: MAYITO MCDONALD MD on Feb 24 2018 12:22PM EST [id number] [facility] XR KNEE 4V AP/PA BOTH+LAT/ME R [...] Degenerative changes with no acute process seen. Sales Compensation Analyst: BEA Transcribe Date/Time: Feb 24 2018 11:07A Dictated by : MAYITO MCDONALD MD This examination was interpreted and the report reviewed and electronically signed by: MAYITO MCDONALD MD on Feb 24 2018 12:22PM EST [id number] [facility] No Panel Information [facility] Vital Signs Date Time Vital Sign Value Performing Clinician Facility 04-16-2025 07:46-0400 Body height 157.5 cm Boom Tim MD Work Phone: [facility] 04-16-2025 07:46-0400 Body mass index (BMI) [Ratio] 47.66 kg/m2 Boom Tim MD Work Phone: [facility] 04-16-2025 07:46-0400 Body weight 118.2 kg Boom Tim MD Work Phone: [facility] 04-16-2025 07:46-0400 Diastolic blood pressure 63 mm[Hg] Boom Tim MD Work Phone: [facility] 04-16-2025 07:46-0400 Heart rate 81 /min Boom Tim MD Work Phone: [facility] 04-16-2025 07:46-0400 SaO2% (BldA) [Mass fraction] 98 % Boom Tim MD Work Phone: [facility] 04-16-2025 07:46-0400 Systolic blood pressure 149 mm[Hg] Boom Tim MD Work Phone: [facility] 04-13-2025 14:43-0400 Body height 157.5 cm Mitch Neri MD Work Phone: [facility] 04-13-2025 14:43-0400 Body mass index (BMI) [Ratio] 48.37 kg/m2 Mitch Neri MD Work Phone: [facility] 04-13-2025 14:43-0400 Body temperature 97.59 [degF] Mitch Neri MD Work Phone: [facility] 04-13-2025 14:43-0400 Body weight 119.95 kg Mitch Neri MD Work Phone: [facility] 04-13-2025 14:43-0400 Diastolic blood pressure 53 mm[Hg] Mitch Neri MD Work Phone: [facility] 04-13-2025 14:43-0400 Heart rate 72 /min Mitch Neri MD Work Phone: [facility] 04-13-2025 14:43-0400 Respiratory rate 18 /min Mitch Neri MD Work Phone: [facility] 04-13-2025 14:43-0400 SaO2% (BldA) [Mass fraction] 98 % Mitch Neri MD Work Phone: [facility] 04-13-2025 14:43-0400 Systolic blood pressure 151 mm[Hg] Mitch Neri MD Work Phone: [facility] 04-05-2025 13:07-0400 Body mass index (BMI) [Ratio] 48.58 kg/m2 Rakesh Lamb DO Work Phone: [facility] 04-05-2025 13:07-0400 Body temperature 98.4 [degF] Rakesh Lamb DO Work Phone: [facility] 04-05-2025 13:07-0400 Body weight 120.47 kg Rakesh Lamb DO Work Phone: [facility] 04-05-2025 13:07-0400 Diastolic blood pressure 72 mm[Hg] Rakesh Lamb DO Work Phone: [facility] 04-05-2025 13:07-0400 Heart rate 66 /min Rakesh Lamb DO Work Phone: [facility] 04-05-2025 13:07-0400 SaO2% (BldA) [Mass fraction] 96 % Rakesh Lamb DO Work Phone: [facility] 04-05-2025 13:07-0400 Systolic blood pressure 134 mm[Hg] Rakesh Lamb DO Work Phone: [facility] 03-19-2025 10:28-0400 Body height 157.5 cm [facility] 03-19-2025 10:28-0400 Body mass index (BMI) [Ratio] 48.83 kg/m2 [facility] 03-19-2025 10:28-0400 Body weight 121.11 kg [facility] 03-19-2025 10:28-0400 Respiratory rate 16 /min [facility] 02-23-2025 10:17-0400 Body temperature 97.2 [degF] ZEN Mann MD Work Phone: [facility] 02-23-2025 10:17-0400 Diastolic blood pressure 70 mm[Hg] NA Donovan HATHAWAY Work Phone: [facility] 02-23-2025 10:17-0400 Respiratory rate 18 /min NA Donovan HATHAWAY Work Phone: [facility] 02-23-2025 10:17-0400 SaO2% (BldA) [Mass fraction] 97 % ZEN Mann MD Work Phone: [facility] 02-23-2025 10:17-0400 Systolic blood pressure 156 mm[Hg] NA Donovan HATHAWAY Work Phone: [facility] 02-23-2025 09:23-0400 Heart rate 73 /min ZEN Mann MD Work Phone: [facility] 02-19-2025 08:20-0400 Body height 157.5 cm Minal Deitzer DO Work Phone: [facility] 02-19-2025 08:20-0400 Body mass index (BMI) [Ratio] 48.95 kg/m2 Minal Deitzer DO Work Phone: [facility] 02-19-2025 08:20-0400 Body weight 121.4 kg Minal Deitzer DO Work Phone: [facility] 02-19-2025 08:20-0400 Diastolic blood pressure 75 mm[Hg] Minal Deitzer DO Work Phone: [facility] 02-19-2025 08:20-0400 Heart rate 71 /min Minal Deitzer DO Work Phone: [facility] 02-19-2025 08:20-0400 Systolic blood pressure 131 mm[Hg] Minal Deitzer DO Work Phone: [facility] 02-15-2025 11:09-0400 Body height 157.5 cm Gómez Baker MD Work Phone: [facility] 02-15-2025 11:09-0400 Body mass index (BMI) [Ratio] 50.83 kg/m2 Gómez Baker MD Work Phone: [facility] 02-15-2025 11:09-0400 Body weight 126.1 kg Gómez Baker MD Work Phone: [facility] 02-15-2025 11:09-0400 Diastolic blood pressure 4 mm[Hg] Gómez Baker MD Work Phone: [facility] 02-15-2025 11:09-0400 Heart rate 71 /min Gómez Baker MD Work Phone: [facility] 02-15-2025 11:09-0400 SaO2% (BldA) [Mass fraction] 97 % Gómez Baker MD Work Phone: [facility] 02-15-2025 11:09-0400 Systolic blood pressure 98 mm[Hg] Gómez Baker MD Work Phone: [facility] 12-30-2024 09:31-0400 Body height 157.5 cm Mitch Neri MD Work Phone: [facility] 12-30-2024 09:31-0400 Body mass index (BMI) [Ratio] 50.99 kg/m2 Mitch Neri MD Work Phone: [facility] 12-30-2024 09:31-0400 Body temperature 97.9 [degF] Mitch Neri MD Work Phone: [facility] 12-30-2024 09:31-0400 Body weight 126.45 kg Mitch Neri MD Work Phone: [facility] 12-30-2024 09:31-0400 Diastolic blood pressure 50 mm[Hg] Mitch Neri MD Work Phone: [facility] 12-30-2024 09:31-0400 Heart rate 72 /min Mitch Neri MD Work Phone: [facility] 12-30-2024 09:31-0400 Respiratory rate 18 /min Mitch Neri MD Work Phone: [facility] 12-30-2024 09:31-0400 SaO2% (BldA) [Mass fraction] 97 % Mitch Neri MD Work Phone: [facility] 12-30-2024 09:31-0400 Systolic blood pressure 124 mm[Hg] Mitch Neri MD Work Phone: [facility] 10-15-2024 08:42-0500 Body mass index (BMI) [Ratio] 50.4 kg/m2 Sierra Atkins MD Work Phone: [facility] 10-15-2024 08:42-0500 Body temperature 97.5 [degF] Sierra Atkins MD Work Phone: [facility] 10-15-2024 08:42-0500 Body weight 125 kg Sierra Atkins MD Work Phone: [facility] 10-15-2024 08:42-0500 Diastolic blood pressure 86 mm[Hg] Sierra Atkins MD Work Phone: [facility] 10-15-2024 08:42-0500 Heart rate 79 /min Sierra Atkins MD Work Phone: [facility] 10-15-2024 08:42-0500 SaO2% (BldA) [Mass fraction] 97 % Sierra Atkins MD Work Phone: [facility] 10-15-2024 08:42-0500 Systolic blood pressure 154 mm[Hg] Sierra Atkins MD Work Phone: [facility] 10-02-2024 13:31-0500 Diastolic blood pressure 69 mm[Hg] Mitch Neri MD Work Phone: [facility] Comment on above: Bp recheck 10-02-2024 13:31-0500 Systolic blood pressure 174 mm[Hg] Mitch Neri MD Work Phone: [facility] Comment on above: Bp recheck 10-02-2024 13:29-0500 Body height 157.5 cm Mitch Neri MD Work Phone: [facility] 10-02-2024 13:29-0500 Body mass index (BMI) [Ratio] 52.06 kg/m2 Mitch Neri MD Work Phone: [facility] 10-02-2024 13:29-0500 Body temperature 97 [degF] Mitch Neri MD Work Phone: [facility] 10-02-2024 13:29-0500 Body weight 129.1 kg Mitch Neri MD Work Phone: [facility] 10-02-2024 13:29-0500 Heart rate 83 /min Mitch Neri MD Work Phone: [facility] 10-02-2024 13:29-0500 Respiratory rate 18 /min Mitch Neri MD Work Phone: [facility] 10-02-2024 13:29-0500 SaO2% (BldA) [Mass fraction] 99 % Mitch Neri MD Work Phone: [facility] 07-16-2024 08:33-0500 Body height 157.5 cm Mitch Neri MD Work Phone: [facility] 07-16-2024 08:33-0500 Body mass index (BMI) [Ratio] 51.33 kg/m2 Mitch Neri MD Work Phone: [facility] 07-16-2024 08:33-0500 Body temperature 98.1 [degF] Mitch Neri MD Work Phone: [facility] 07-16-2024 08:33-0500 Body weight 127.3 kg Mitch Neri MD Work Phone: [facility] 07-16-2024 08:33-0500 Diastolic blood pressure 42 mm[Hg] Mitch Neri MD Work Phone: [facility] 07-16-2024 08:33-0500 Heart rate 73 /min Mitch Neri MD Work Phone: [facility] 07-16-2024 08:33-0500 Respiratory rate 18 /min Mitch Neri MD Work Phone: [facility] 07-16-2024 08:33-0500 SaO2% (BldA) [Mass fraction] 99 % Mitch Neri MD Work Phone: [facility] 07-16-2024 08:33-0500 Systolic blood pressure 121 mm[Hg] Mitch Neri MD Work Phone: [facility] 07-15-2024 14:03-0500 Diastolic blood pressure 72 mm[Hg] Sandy Mcgregor MD, PhD Work Phone: [facility] 07-15-2024 14:03-0500 Heart rate 77 /min Sandy Mcgregor MD, PhD Work Phone: [facility] 07-15-2024 14:03-0500 Systolic blood pressure 126 mm[Hg] Sandy Mcgregor MD, PhD Work Phone: [facility] 06-10-2024 09:21-0400 Body height 157.5 cm Sunny Jenkins MD Work Phone: [facility] 06-10-2024 09:21-0400 Body mass index (BMI) [Ratio] 50.85 kg/m2 Sunny Jenkins MD Work Phone: [facility] 06-10-2024 09:21-0400 Body temperature 98.2 [degF] Sunny Jenkisn MD Work Phone: [facility] 06-10-2024 09:21-0400 Body weight 126.1 kg Sunny Jenkins MD Work Phone: [facility] 06-10-2024 09:21-0400 Diastolic blood pressure 68 mm[Hg] Sunny Jenkins MD Work Phone: [facility] 06-10-2024 09:21-0400 Heart rate 72 /min Sunny Jenkins MD Work Phone: [facility] 06-10-2024 09:21-0400 SaO2% (BldA) [Mass fraction] 98 % Sunny Jenkins MD Work Phone: [facility] 06-10-2024 09:21-0400 Systolic blood pressure 128 mm[Hg] Sunny Jenkins MD Work Phone: [facility] 06-03-2024 13:03-0400 Body height 157.5 cm Mitch Neri MD Work Phone: [facility] 06-03-2024 13:03-0400 Body mass index (BMI) [Ratio] 50.12 kg/m2 Mitch Neri MD Work Phone: [facility] 06-03-2024 13:03-0400 Body temperature 97.9 [degF] Mitch Neri MD Work Phone: [facility] 06-03-2024 13:03-0400 Body weight 124.3 kg Mitch Neri MD Work Phone: [facility] 06-03-2024 13:03-0400 Diastolic blood pressure 83 mm[Hg] Mitch Neri MD Work Phone: [facility] 06-03-2024 13:03-0400 Heart rate 72 /min Mitch Neri MD Work Phone: [facility] 06-03-2024 13:03-0400 Respiratory rate 18 /min Mitch Neri MD Work Phone: [facility] 06-03-2024 13:03-0400 SaO2% (BldA) [Mass fraction] 96 % Mitch Neri MD Work Phone: [facility] 06-03-2024 13:03-0400 Systolic blood pressure 142 mm[Hg] Mitch Neri MD Work Phone: [facility] 05-19-2024 14:01-0400 Body height 157.5 cm Pacc 1 Work Phone: [facility] 05-19-2024 14:01-0400 Body mass index (BMI) [Ratio] 50.81 kg/m2 Pacc 1 Work Phone: [facility] 05-19-2024 14:01-0400 Body temperature 98.2 [degF] Pacc 1 Work Phone: [facility] 05-19-2024 14:01-0400 Body weight 126 kg Pacc 1 Work Phone: [facility] 05-19-2024 14:01-0400 Diastolic blood pressure 82 mm[Hg] Pacc 1 Work Phone: [facility] 05-19-2024 14:01-0400 Heart rate 81 /min Pacc 1 Work Phone: [facility] 05-19-2024 14:01-0400 Respiratory rate 16 /min Pacc 1 Work Phone: [facility] 05-19-2024 14:01-0400 SaO2% (BldA) [Mass fraction] 96 % Pacc 1 Work Phone: [facility] 05-19-2024 14:01-0400 Systolic blood pressure 145 mm[Hg] Pacc 1 Work Phone: [facility] 05-05-2024 14:06-0400 Body mass index (BMI) [Ratio] 54.87 kg/m2 Sandy Mcgregor MD, PhD Work Phone: [facility] 05-05-2024 14:06-0400 Body weight 128.1 kg Sandy Mcgregor MD, PhD Work Phone: [facility] 05-05-2024 14:06-0400 Diastolic blood pressure 56 mm[Hg] Sandy Mcgregor MD, PhD Work Phone: [facility] 05-05-2024 14:06-0400 Heart rate 72 /min Sandy Mcgregor MD, PhD Work Phone: [facility] 05-05-2024 14:06-0400 Systolic blood pressure 120 mm[Hg] Sandy Mcgregor MD, PhD Work Phone: [facility] 04-21-2024 09:37-0400 Body height 152.8 cm Mitch Neri MD Work Phone: [facility] 04-21-2024 09:37-0400 Body mass index (BMI) [Ratio] 54.25 kg/m2 Mitch Neri MD Work Phone: [facility] 04-21-2024 09:37-0400 Body temperature 97.7 [degF] Mitch Neri MD Work Phone: [facility] 04-21-2024 09:37-0400 Body weight 126.65 kg Mitch Neri MD Work Phone: [facility] 04-21-2024 09:37-0400 Diastolic blood pressure 64 mm[Hg] Mitch Neri MD Work Phone: [facility] 04-21-2024 09:37-0400 Heart rate 78 /min Mitch Neri MD Work Phone: [facility] 04-21-2024 09:37-0400 Respiratory rate 18 /min Mitch Neri MD Work Phone: [facility] 04-21-2024 09:37-0400 SaO2% (BldA) [Mass fraction] 95 % Mitch Neri MD Work Phone: [facility] 04-21-2024 09:37-0400 Systolic blood pressure 141 mm[Hg] Mitch Neri MD Work Phone: [facility] 03-19-2024 09:01-0400 Body mass index (BMI) [Ratio] 52.73 kg/m2 Josef Austin MD Work Phone: [facility] 03-19-2024 09:01-0400 Body temperature 97.2 [degF] Josef Austin MD Work Phone: [facility] 03-19-2024 09:01-0400 Body weight 123.1 kg Josef Austin MD Work Phone: [facility] 03-19-2024 09:01-0400 Diastolic blood pressure 71 mm[Hg] Josef Austin MD Work Phone: [facility] 03-19-2024 09:01-0400 Heart rate 72 /min Josef Austin MD Work Phone: [facility] 03-19-2024 09:01-0400 Respiratory rate 18 /min Josef Austin MD Work Phone: [facility] 03-19-2024 09:01-0400 SaO2% (BldA) [Mass fraction] 99 % Josef Austin MD Work Phone: [facility] 03-19-2024 09:01-0400 Systolic blood pressure 159 mm[Hg] Josef Austin MD Work Phone: [facility] 03-11-2024 09:16-0400 Body mass index (BMI) [Ratio] 52.47 kg/m2 Josef Austin MD Work Phone: [facility] 03-11-2024 09:16-0400 Body temperature 97.9 [degF] Josef Austin MD Work Phone: [facility] 03-11-2024 09:16-0400 Body weight 122.5 kg Josef Austin MD Work Phone: [facility] 03-11-2024 09:16-0400 Diastolic blood pressure 80 mm[Hg] Josef Austin MD Work Phone: [facility] 03-11-2024 09:16-0400 Heart rate 70 /min Josef Austin MD Work Phone: [facility] 03-11-2024 09:16-0400 Respiratory rate 18 /min Josef Austin MD Work Phone: [facility] 03-11-2024 09:16-0400 SaO2% (BldA) [Mass fraction] 98 % Josef Austin MD Work Phone: [facility] 03-11-2024 09:16-0400 Systolic blood pressure 141 mm[Hg] Josef Austin MD Work Phone: [facility] 03-03-2024 15:58-0400 Body height 152.8 cm Mitch Neri MD Work Phone: [facility] 03-03-2024 15:58-0400 Body mass index (BMI) [Ratio] 52.85 kg/m2 Mitch Neri MD Work Phone: [facility] 03-03-2024 15:58-0400 Body temperature 98.01 [degF] Mitch Neri MD Work Phone: [facility] 03-03-2024 15:58-0400 Body weight 123.4 kg Mitch Neri MD Work Phone: [facility] 03-03-2024 15:58-0400 Diastolic blood pressure 83 mm[Hg] Mitch Neri MD Work Phone: [facility] 03-03-2024 15:58-0400 Heart rate 71 /min Mitch Neri MD Work Phone: [facility] 03-03-2024 15:58-0400 Respiratory rate 16 /min Mitch Neri MD Work Phone: [facility] 03-03-2024 15:58-0400 SaO2% (BldA) [Mass fraction] 96 % Mitch Neri MD Work Phone: [facility] 03-03-2024 15:58-0400 Systolic blood pressure 157 mm[Hg] Mitch Neri MD Work Phone: [facility] 02-07-2024 10:06-0400 Body mass index (BMI) [Ratio] 51.61 kg/m2 Josef Austin MD Work Phone: [facility] 02-07-2024 10:06-0400 Body temperature 96.91 [degF] Josef Austin MD Work Phone: [facility] 02-07-2024 10:06-0400 Body weight 120.5 kg Josef Austin MD Work Phone: [facility] 02-07-2024 10:06-0400 Diastolic blood pressure 57 mm[Hg] Josef Austin MD Work Phone: [facility] 02-07-2024 10:06-0400 Heart rate 75 /min Josef Austin MD Work Phone: [facility] 02-07-2024 10:06-0400 Respiratory rate 18 /min Josef Austin MD Work Phone: [facility] 02-07-2024 10:06-0400 SaO2% (BldA) [Mass fraction] 96 % Josef Austin MD Work Phone: [facility] 02-07-2024 10:06-0400 Systolic blood pressure 105 mm[Hg] Josef Austin MD Work Phone: [facility] 01-28-2024 08:19-0400 Body height 157.5 cm Sunny Jenkins MD Work Phone: [facility] 01-28-2024 08:19-0400 Body mass index (BMI) [Ratio] 47.74 kg/m2 Sunny Jenkins MD Work Phone: [facility] 01-28-2024 08:19-0400 Body temperature 98.01 [degF] Sunny Jenkins MD Work Phone: [facility] 01-28-2024 08:19-0400 Body weight 118.39 kg Sunny Jenkins MD Work Phone: [facility] 01-28-2024 08:19-0400 Diastolic blood pressure 74 mm[Hg] Sunny Jenkins MD Work Phone: [facility] 01-28-2024 08:19-0400 Heart rate 78 /min Sunny Jenkins MD Work Phone: [facility] 01-28-2024 08:19-0400 SaO2% (BldA) [Mass fraction] 93 % Sunny Jenkins MD Work Phone: [facility] 01-28-2024 08:19-0400 Systolic blood pressure 122 mm[Hg] Sunny Jenkins MD Work Phone: [facility] 01-21-2024 13:53-0400 Body height 152.8 cm Mitch Neri MD Work Phone: [facility] 01-21-2024 13:53-0400 Body mass index (BMI) [Ratio] 51.14 kg/m2 Mitch Neri MD Work Phone: [facility] 01-21-2024 13:53-0400 Body temperature 97.7 [degF] Mitch Neri MD Work Phone: [facility] 01-21-2024 13:53-0400 Body weight 119.4 kg Mitch Neri MD Work Phone: [facility] 01-21-2024 13:53-0400 Diastolic blood pressure 75 mm[Hg] Mitch Neri MD Work Phone: [facility] 01-21-2024 13:53-0400 Heart rate 109 /min Mitch Neri MD Work Phone: [facility] 01-21-2024 13:53-0400 Respiratory rate 16 /min Mitch Neri MD Work Phone: [facility] 01-21-2024 13:53-0400 SaO2% (BldA) [Mass fraction] 98 % Mitch Neri MD Work Phone: [facility] 01-21-2024 13:53-0400 Systolic blood pressure 131 mm[Hg] Mitch Neri MD Work Phone: [facility] 01-14-2024 12:55-0400 Body height 152.8 cm Cathy Yokasta PA-C Work Phone: [facility] 01-14-2024 12:55-0400 Body mass index (BMI) [Ratio] 51.57 kg/m2 Cathy Yokasta PA-C Work Phone: [facility] 01-14-2024 12:55-0400 Body temperature 97.7 [degF] Cathy Yokasta PA-C Work Phone: [facility] 01-14-2024 12:55-0400 Body weight 120.4 kg Cathy Yokasta PA-C Work Phone: [facility] 01-14-2024 12:55-0400 Diastolic blood pressure 71 mm[Hg] Cathy Yokasta PA-C Work Phone: [facility] 01-14-2024 12:55-0400 Heart rate 82 /min Cathy Yokasta PA-C Work Phone: [facility] 01-14-2024 12:55-0400 Respiratory rate 16 /min Cathy Yokasta PA-C Work Phone: [facility] 01-14-2024 12:55-0400 SaO2% (BldA) [Mass fraction] 100 % Cathy Yokasta PA-C Work Phone: [facility] 01-14-2024 12:55-0400 Systolic blood pressure 128 mm[Hg] Cathy Yokasta PA-C Work Phone: [facility] 01-07-2024 12:51-0400 Body mass index (BMI) [Ratio] 51.05 kg/m2 Mitch Neri MD Work Phone: [facility] 01-07-2024 12:51-0400 Body temperature 97.9 [degF] Mitch Neri MD Work Phone: [facility] 01-07-2024 12:51-0400 Body weight 119.2 kg Mitch Neri MD Work Phone: [facility] 01-07-2024 12:51-0400 Diastolic blood pressure 44 mm[Hg] Mitch Neri MD Work Phone: [facility] 01-07-2024 12:51-0400 Heart rate 86 /min Mitch Neri MD Work Phone: [facility] 01-07-2024 12:51-0400 Respiratory rate 18 /min Mitch Neri MD Work Phone: [facility] 01-07-2024 12:51-0400 SaO2% (BldA) [Mass fraction] 97 % Mitch Neri MD Work Phone: [facility] 01-07-2024 12:51-0400 Systolic blood pressure 116 mm[Hg] Mitch Neri MD Work Phone: [facility] 01-06-2024 10:20-0400 Body height 157.48 cm [facility] 01-06-2024 10:20-0400 Body mass index (BMI) [Ratio] 47.7 kg/m2 [facility] 01-06-2024 10:20-0400 Body temperature 97.2 [degF] [facility] 01-06-2024 10:20-0400 Body weight 118.44 kg [facility] 01-06-2024 10:20-0400 Diastolic blood pressure 91 mm[Hg] [facility] 01-06-2024 10:20-0400 Heart rate 118 /min [facility] 01-06-2024 10:20-0400 Respiratory rate 20 /min [facility] 01-06-2024 10:20-0400 SaO2% (BldA) [Mass fraction] 98 % [facility] 01-06-2024 10:20-0400 Systolic blood pressure 146 mm[Hg] [facility] 12-31-2023 11:20-0400 Body temperature 98.29 [degF] Chair [place] Work Phone: [facility] 12-31-2023 11:20-0400 Diastolic blood pressure 82 mm[Hg] Chair [place] Work Phone: [facility] 12-31-2023 11:20-0400 Heart rate 75 /min Chair [place] Work Phone: [facility] 12-31-2023 11:20-0400 Respiratory rate 16 /min Chair [place] Work Phone: [facility] 12-31-2023 11:20-0400 SaO2% (BldA) [Mass fraction] 94 % Chair [place] Work Phone: [facility] 12-31-2023 11:20-0400 Systolic blood pressure 120 mm[Hg] Chair [place] Work Phone: [facility] 12-24-2023 10:01-0400 Body height 152.8 cm Mitch Neri MD Work Phone: [facility] 12-24-2023 10:01-0400 Body mass index (BMI) [Ratio] 51.01 kg/m2 Mitch Neri MD Work Phone: [facility] 12-24-2023 10:01-0400 Body temperature 97.11 [degF] Mitch Neri MD Work Phone: [facility] 12-24-2023 10:01-0400 Body weight 119.1 kg Mitch Neri MD Work Phone: [facility] 12-24-2023 10:01-0400 Diastolic blood pressure 60 mm[Hg] Mitch Neri MD Work Phone: [facility] 12-24-2023 10:01-0400 Heart rate 72 /min Mitch Neri MD Work Phone: [facility] 12-24-2023 10:01-0400 Respiratory rate 16 /min Mitch Neri MD Work Phone: [facility] 12-24-2023 10:01-0400 SaO2% (BldA) [Mass fraction] 96 % Mitch Neri MD Work Phone: [facility] 12-24-2023 10:01-0400 Systolic blood pressure 129 mm[Hg] Mitch Neri MD Work Phone: [facility] 12-10-2023 09:51-0400 Body height 152.8 cm Brianna Renner GIN FEEDER.VENDOR MANAGEMENT CONSULTANT Work Phone: [facility] 12-10-2023 09:51-0400 Body temperature 97.81 [degF] Brianna Renner GIN FEEDER.VENDOR MANAGEMENT CONSULTANT Work Phone: [facility] 12-10-2023 09:51-0400 Body weight 118.1 kg Brianna Renner APRN.VENDOR MANAGEMENT CONSULTANT Work Phone: [facility] 12-10-2023 09:51-0400 Diastolic blood pressure 80 mm[Hg] Brianna Renner GIN FEEDER.VENDOR MANAGEMENT CONSULTANT Work Phone: [facility] 12-10-2023 09:51-0400 Heart rate 97 /min Brianna Renner GIN FEEDER.VENDOR MANAGEMENT CONSULTANT Work Phone: [facility] 12-10-2023 09:51-0400 Respiratory rate 18 /min Brianna Renner GIN FEEDER.VENDOR MANAGEMENT CONSULTANT Work Phone: [facility] 12-10-2023 09:51-0400 SaO2% (BldA) [Mass fraction] 95 % Brianna Renner GIN FEEDER.VENDOR MANAGEMENT CONSULTANT Work Phone: [facility] 12-10-2023 09:51-0400 Systolic blood pressure 133 mm[Hg] Brianna Renner GIN FEEDER.VENDOR MANAGEMENT CONSULTANT Work Phone: [facility] 12-03-2023 10:35-0400 Body height 152.8 cm Cathy Templeton PA-C Work Phone: [facility] 12-03-2023 10:35-0400 Body temperature 97.39 [degF] Cathy Yokasta PA-C Work Phone: [facility] 12-03-2023 10:35-0400 Body weight 117.5 kg Cathy Yokasta PA-C Work Phone: [facility] 12-03-2023 10:35-0400 Diastolic blood pressure 67 mm[Hg] Cathy Yokasta PA-C Work Phone: [facility] 12-03-2023 10:35-0400 Heart rate 77 /min Cathy Yokasta PA-C Work Phone: [facility] 12-03-2023 10:35-0400 Respiratory rate 16 /min Cathy Yokasta PA-C Work Phone: [facility] 12-03-2023 10:35-0400 SaO2% (BldA) [Mass fraction] 95 % Cathy Yokasta PA-C Work Phone: [facility] 12-03-2023 10:35-0400 Systolic blood pressure 137 mm[Hg] Cathy Yokasta PA-C Work Phone: [facility] 11-27-2023 14:54-0400 Body height 157.5 cm Leo Gerard APRN-VENDOR MANAGEMENT CONSULTANT Work Phone: [facility] 11-27-2023 14:54-0400 Body mass index (BMI) [Ratio] 48.05 kg/m2 Leo Gerard GIN FEEDER-VENDOR MANAGEMENT CONSULTANT Work Phone: [facility] 11-27-2023 14:54-0400 Body temperature 99 [degF] Leo Gerard GIN FEEDER-VENDOR MANAGEMENT CONSULTANT Work Phone: [facility] 11-27-2023 14:54-0400 Body weight 119.2 kg Leo Gerard GIN FEEDER-VENDOR MANAGEMENT CONSULTANT Work Phone: [facility] 11-27-2023 14:54-0400 Diastolic blood pressure 78 mm[Hg] Leo Gerard GIN FEEDER-VENDOR MANAGEMENT CONSULTANT Work Phone: [facility] 11-27-2023 14:54-0400 Heart rate 75 /min Leo Gerard GIN FEEDER-VENDOR MANAGEMENT CONSULTANT Work Phone: [facility] 11-27-2023 14:54-0400 SaO2% (BldA) [Mass fraction] 96 % Leo Gerard GIN FEEDER-VENDOR MANAGEMENT CONSULTANT Work Phone: [facility] 11-27-2023 14:54-0400 Systolic blood pressure 138 mm[Hg] Leo Gerard GIN FEEDER-VENDOR MANAGEMENT CONSULTANT Work Phone: [facility] 11-26-2023 11:14-0400 Body height 153.8 cm Mitch Neri MD Work Phone: [facility] 11-26-2023 11:14-0400 Body temperature 98.01 [degF] Mitch Neri MD Work Phone: [facility] 11-26-2023 11:14-0400 Body weight 119.7 kg Mitch Neri MD Work Phone: [facility] 11-26-2023 11:14-0400 Diastolic blood pressure 60 mm[Hg] Mitch Neri MD Work Phone: [facility] 11-26-2023 11:14-0400 Heart rate 84 /min Mitch Neri MD Work Phone: [facility] 11-26-2023 11:14-0400 Respiratory rate 16 /min Mitch Neri MD Work Phone: [facility] 11-26-2023 11:14-0400 SaO2% (BldA) [Mass fraction] 98 % Mitch Neri MD Work Phone: [facility] 11-26-2023 11:14-0400 Systolic blood pressure 123 mm[Hg] Mitch Neri MD Work Phone: [facility] 11-14-2023 15:19-0400 Body height 157.5 cm Leo Gerard GIN FEEDER-VENDOR MANAGEMENT CONSULTANT Work Phone: [facility] 11-14-2023 15:19-0400 Body mass index (BMI) [Ratio] 49.01 kg/m2 Leo Gerard GIN FEEDER-VENDOR MANAGEMENT CONSULTANT Work Phone: [facility] 11-14-2023 15:19-0400 Body temperature 98.2 [degF] Leo Gerard GIN FEEDER-VENDOR MANAGEMENT CONSULTANT Work Phone: [facility] 11-14-2023 15:19-0400 Body weight 121.56 kg Leo Gerard GIN FEEDER-VENDOR MANAGEMENT CONSULTANT Work Phone: [facility] 11-14-2023 15:19-0400 Diastolic blood pressure 80 mm[Hg] Leo Gerard GIN FEEDER-VENDOR MANAGEMENT CONSULTANT Work Phone: [facility] 11-14-2023 15:19-0400 Heart rate 82 /min Leo Gerard GIN FEEDER-VENDOR MANAGEMENT CONSULTANT Work Phone: [facility] 11-14-2023 15:19-0400 SaO2% (BldA) [Mass fraction] 93 % Leo Gerard GIN FEEDER-VENDOR MANAGEMENT CONSULTANT Work Phone: [facility] 11-14-2023 15:19-0400 Systolic blood pressure 140 mm[Hg] Leo Gerard GIN FEEDER-VENDOR MANAGEMENT CONSULTANT Work Phone: [facility] 11-05-2023 10:44-0400 SaO2% (BldA) [Mass fraction] 90 % Brianna Renner GIN FEEDER.VENDOR MANAGEMENT CONSULTANT Work Phone: [facility] 11-05-2023 10:42-0400 Diastolic blood pressure 77 mm[Hg] Chair [place] Work Phone: [facility] 11-05-2023 10:42-0400 Systolic blood pressure 143 mm[Hg] Chair Francine Work Phone: [facility] 11-05-2023 09:44-0400 Body height 153.8 cm Brianna Renner APRN.VENDOR MANAGEMENT CONSULTANT Work Phone: [facility] 11-05-2023 09:44-0400 Body temperature 97.3 [degF] Brianna Renner APRN.VENDOR MANAGEMENT CONSULTANT Work Phone: [facility] 11-05-2023 09:44-0400 Body weight 123.8 kg Brianna Renner APRN.VENDOR MANAGEMENT CONSULTANT Work Phone: [facility] 11-05-2023 09:44-0400 Diastolic blood pressure 78 mm[Hg] Brianna Renner GIN FEEDER.VENDOR MANAGEMENT CONSULTANT Work Phone: [facility] 11-05-2023 09:44-0400 Heart rate 84 /min Brianna Renner APRN.VENDOR MANAGEMENT CONSULTANT Work Phone: [facility] 11-05-2023 09:44-0400 Respiratory rate 24 /min Brianna Renner APRN.VENDOR MANAGEMENT CONSULTANT Work Phone: [facility] 11-05-2023 09:44-0400 Systolic blood pressure 168 mm[Hg] Brianna Renner GIN FEEDER.VENDOR MANAGEMENT CONSULTANT Work Phone: [facility] 10-23-2023 13:38-0500 Body temperature 97.9 [degF] [facility] [place] Work Phone: [facility] 10-23-2023 13:38-0500 Diastolic blood pressure 84 mm[Hg] [facility] [place] Work Phone: [facility] 10-23-2023 13:38-0500 Heart rate 71 /min [facility] [place] Work Phone: [facility] 10-23-2023 13:38-0500 Respiratory rate 18 /min [facility] [place] Work Phone: [facility] 10-23-2023 13:38-0500 SaO2% (BldA) [Mass fraction] 95 % [facility] [place] Work Phone: [facility] 10-23-2023 13:38-0500 Systolic blood pressure 211 mm[Hg] [facility] [place] Work Phone: [facility] 10-22-2023 09:09-0500 Body height 153.8 cm Mitch Neri MD Work Phone: [facility] 10-22-2023 09:09-0500 Body temperature 97.9 [degF] Mitch Neri MD Work Phone: [facility] 10-22-2023 09:09-0500 Body weight 121.7 kg Mitch Neri MD Work Phone: [facility] 10-22-2023 09:09-0500 Diastolic blood pressure 66 mm[Hg] Mitch Neri MD Work Phone: [facility] 10-22-2023 09:09-0500 Heart rate 72 /min Mitch Neri MD Work Phone: [facility] 10-22-2023 09:09-0500 Respiratory rate 16 /min Mitch Neri MD Work Phone: [facility] 10-22-2023 09:09-0500 SaO2% (BldA) [Mass fraction] 95 % Mitch Neri MD Work Phone: [facility] 10-22-2023 09:09-0500 Systolic blood pressure 185 mm[Hg] Mitch Neri MD Work Phone: [facility] 10-09-2023 10:28-0500 Body height 157.5 cm Leo Gerard APRN-VENDOR MANAGEMENT CONSULTANT Work Phone: [facility] 10-09-2023 10:28-0500 Body mass index (BMI) [Ratio] 51.03 kg/m2 Leo Gerard APRN-VENDOR MANAGEMENT CONSULTANT Work Phone: [facility] 10-09-2023 10:28-0500 Body temperature 98.4 [degF] Leo Gerard APRN-VENDOR MANAGEMENT CONSULTANT Work Phone: [facility] 10-09-2023 10:28-0500 Body weight 126.55 kg Leo Gerard GIN FEEDER-VENDOR MANAGEMENT CONSULTANT Work Phone: [facility] 10-09-2023 10:28-0500 Diastolic blood pressure 78 mm[Hg] Leo Gerard GIN FEEDER-VENDOR MANAGEMENT CONSULTANT Work Phone: [facility] 10-09-2023 10:28-0500 Heart rate 83 /min Leo Gerard GIN FEEDER-VENDOR MANAGEMENT CONSULTANT Work Phone: [facility] 10-09-2023 10:28-0500 SaO2% (BldA) [Mass fraction] 98 % Leo Gerard GIN FEEDER-VENDOR MANAGEMENT CONSULTANT Work Phone: [facility] 10-09-2023 10:28-0500 Systolic blood pressure 158 mm[Hg] Leo Gerard GIN FEEDER-VENDOR MANAGEMENT CONSULTANT Work Phone: [facility] 09-26-2023 08:04-0500 Body height 157.5 cm Pacc 1 Work Phone: [facility] 09-26-2023 08:04-0500 Body temperature 98.4 [degF] Pacc 1 Work Phone: [facility] 09-26-2023 08:04-0500 Body weight 124.5 kg Pacc 1 Work Phone: [facility] 09-26-2023 08:04-0500 Diastolic blood pressure 56 mm[Hg] Pacc 1 Work Phone: [facility] 09-26-2023 08:04-0500 Heart rate 74 /min Pacc 1 Work Phone: [facility] 09-26-2023 08:04-0500 Respiratory rate 20 /min Pacc 1 Work Phone: [facility] 09-26-2023 08:04-0500 SaO2% (BldA) [Mass fraction] 94 % Pacc 1 Work Phone: [facility] 09-26-2023 08:04-0500 Systolic blood pressure 152 mm[Hg] Pacc 1 Work Phone: [facility] 08-06-2023 08:35-0500 Body temperature 96.8 [degF] Mendoza Yang MD Work Phone: [facility] 08-06-2023 08:35-0500 Body weight 123.78 kg Mendoza Yang MD Work Phone: [facility] 08-06-2023 08:35-0500 Diastolic blood pressure 63 mm[Hg] Mendoza Yang MD Work Phone: [facility] 08-06-2023 08:35-0500 Heart rate 65 /min Mendoza Yang MD Work Phone: [facility] 08-06-2023 08:35-0500 Respiratory rate 20 /min Mendoza Yang MD Work Phone: [facility] 08-06-2023 08:35-0500 SaO2% (BldA) [Mass fraction] 96 % Mendoza Yang MD Work Phone: [facility] 08-06-2023 08:35-0500 Systolic blood pressure 169 mm[Hg] Mendoza Yang MD Work Phone: [facility] 07-26-2023 11:55-0500 Body height 160 cm Pacc 4 Work Phone: [facility] 07-26-2023 11:55-0500 Body temperature 97.81 [degF] Pacc 4 Work Phone: [facility] 07-26-2023 11:55-0500 Body weight 126.8 kg Pacc 4 Work Phone: [facility] 07-26-2023 11:55-0500 Diastolic blood pressure 74 mm[Hg] Pacc 4 Work Phone: [facility] 07-26-2023 11:55-0500 Heart rate 69 /min Pacc 4 Work Phone: [facility] 07-26-2023 11:55-0500 Respiratory rate 17 /min Pacc 4 Work Phone: [facility] 07-26-2023 11:55-0500 SaO2% (BldA) [Mass fraction] 95 % Pacc 4 Work Phone: [facility] 07-26-2023 11:55-0500 Systolic blood pressure 174 mm[Hg] Pacc 4 Work Phone: [facility] 02-28-2023 12:30-0400 Diastolic blood pressure 80 mm[Hg] DO Janet Gilma Work Phone: [facility] 02-28-2023 12:30-0400 Heart rate 62 /min DO Janet Gilma Work Phone: [facility] 02-28-2023 12:30-0400 Respiratory rate 16 /min DO Janet Gilma Work Phone: [facility] 02-28-2023 12:30-0400 SaO2% (BldA) [Mass fraction] 100 % DO Janet Gilma Work Phone: [facility] 02-28-2023 12:30-0400 Systolic blood pressure 184 mm[Hg] DO Janet Gilma Work Phone: [facility] 02-28-2023 09:53-0400 Body height 157.48 cm DO Janet Gilma Work Phone: [facility] 02-28-2023 09:53-0400 Body weight 127 kg DO Janet Gilma Work Phone: [facility] 12-07-2022 17:10-0400 Body height 154.94 cm Debbie Ramirez Other [employer] Other 12-07-2022 17:10-0400 Body mass index (BMI) [Ratio] 52.22 kg/m2 Debbie Ramirez Other [employer] Other 12-07-2022 17:10-0400 Body temperature 100 [degF] Debbie Ramirez Other [employer] Other 12-07-2022 17:10-0400 Body weight 125.38 kg Debbie Ramirez Other [employer] Other 12-07-2022 17:10-0400 Diastolic blood pressure 93 mm[Hg] Debbie Antoinemond Other [employer] Other 12-07-2022 17:10-0400 Respiratory rate 20 /min Debbie Antoinemond Other [employer] Other 12-07-2022 17:10-0400 SaO2% (BldA) [Mass fraction] 95 % Debbie Ramirez Other [employer] Other 12-07-2022 17:10-0400 Systolic blood pressure 142 mm[Hg] Debbie Ramirez Other [employer] Other 12-03-2022 18:30-0400 Body height 154.94 cm Karen Parrish Other [employer] Other 12-03-2022 18:30-0400 Body mass index (BMI) [Ratio] 52.9 kg/m2 Karen Parrish Other [employer] Other 12-03-2022 18:30-0400 Body temperature 100 [degF] Karen Parrish Other [employer] Other 12-03-2022 18:30-0400 Body weight 127.01 kg Karen Parrish Other [employer] Other 12-03-2022 18:30-0400 Diastolic blood pressure 97 mm[Hg] Karen Parrish Other [employer] Other 12-03-2022 18:30-0400 Respiratory rate 20 /min Karen Parrish Other [employer] Other 12-03-2022 18:30-0400 SaO2% (BldA) [Mass fraction] 93 % Karen Parrish Other [employer] Other 12-03-2022 18:30-0400 Systolic blood pressure 189 mm[Hg] Karen Parrish Other [employer] Other 06-17-2022 10:25-0400 Body height 154.94 cm Dayanna Endy Other [employer] Other 06-17-2022 10:25-0400 Body mass index (BMI) [Ratio] 52.9 kg/m2 Dayanna Mikeault Other [employer] Other 06-17-2022 10:25-0400 Body temperature 98.6 [degF] Dayanna Endy Other [employer] Other 06-17-2022 10:25-0400 Body weight 127.01 kg Dayanna Endy Other [employer] Other 06-17-2022 10:25-0400 Diastolic blood pressure 90 mm[Hg] Dayanna Endy Other [employer] Other 06-17-2022 10:25-0400 Respiratory rate 20 /min Dayanna Endy Other [employer] Other 06-17-2022 10:25-0400 SaO2% (BldA) [Mass fraction] 98 % Dayanna Schumacher Other [facility] [employer] Other 06-17-2022 10:25-0400 Systolic blood pressure 190 mm[Hg] Dayanna Schumacher Other [facility] [employer] Other 04-03-2022 13:17-0400 Body height 157.5 cm Shailesh Izquierdo MD Work Phone: [facility] 04-03-2022 13:17-0400 Body weight 127.01 kg Shailesh Izquierdo MD Work Phone: [facility] 03-19-2022 15:23-0400 Body weight 125.83 kg Alberto Mendis DO Work Phone: [facility] 03-19-2022 15:23-0400 Diastolic blood pressure 81 mm[Hg] Alberto Mendis DO Work Phone: [facility] 03-19-2022 15:23-0400 Heart rate 104 /min Alberto Mendis DO Work Phone: [facility] 03-19-2022 15:23-0400 Systolic blood pressure 174 mm[Hg] Alberto Mendis DO Work Phone: [facility] 12-08-2021 08:25-0400 Body height 157.5 cm John Dc MD Work Phone: [facility] 12-08-2021 08:25-0400 Body weight 124.74 kg John Dc MD Work Phone: [facility] 12-08-2021 08:25-0400 Diastolic blood pressure 79 mm[Hg] John Dc MD Work Phone: [facility] 12-08-2021 08:25-0400 Heart rate 73 /min John Dc MD Work Phone: [facility] 12-08-2021 08:25-0400 Systolic blood pressure 128 mm[Hg] John Dc MD Work Phone: [facility] Encounters Encounter Date Encounter Type Care Provider Facility Start: 04-26-2025 End: 04-27-2025 Telephone encounter Rosalie Lopez MD Work Phone: [facility] Comment on above: Refill Request Start: 04-16-2025 End: 04-16-2025 Patient encounter procedure [facility] [place] Work Phone: Pulmonary Lab Comment on above: Dyspnea and respirat ory abnormalities (Primary Dx); Hiatal hernia; Other idiopathic scoliosis, unspecified spinal region; Class 3 severe obesity with body mass index (BMI) of 45.0 to 49.9 in adult, unspecified obesity type, unspecified whether serious comorbidity present (HCC) Start: 04-16-2025 End: 04-16-2025 ambulatory [facility] Pulmonary Lab Comment on above: Spirometry Start: 04-13-2025 End: 04-13-2025 Patient encounter procedure Mitch Neri MD Work Phone: Hematology Comment on above: Invasive lobular car cinoma of breast in female (HCC) (Primary Dx); Bilateral leg edema; Osteopenia of multiple sites Start: 04-13-2025 End: 04-13-2025 ambulatory SUNNY RHODESF Facility:[facility] Start: 04-12-2025 End: 04-12-2025 Specialty Pharmacy Muna Fox [facility] Comment on above: SPP Oral Oncology/he matology - Medication Refill (Kisqali) Sinusitis Acute recurrent pans inusitis Start: 04-09-2025 End: 04-10-2025 Refill Mitch Neri MD Work Phone: Hematology Comment on above: Refill Request Start: 04-05-2025 End: 04-05-2025 Office outpatient visit 15 minutes Rakesh Lamb DO Work Phone: [facility] Comment on above: Acute recurrent pans inusitis (Primary Dx); Vaginal candidiasis; Yeast dermatitis Start: 04-05-2025 End: 04-05-2025 ambulatory Chair 9 Francine Work Phone: Hematology/Oncology Comment on above: Invasive lobular car cinoma of breast in female (HCC) (Primary Dx) Start: 04-01-2025 ambulatory MINAL KHANNA Facility: [facility] Start: 03-30-2025 End: 03-30-2025 ambulatory [facility] Work Phone: Hematology/Oncology Comment on above: Invasive lobular car cinoma of breast in female (HCC) Encounter for screen ing mammogram for malignant neoplasm of breast Start: 03-26-2025 End: 03-26-2025 Telephone encounter Mitch Neri MD Work Phone: Hematology Comment on above: permision for fittin g/DME Start: 03-19-2025 End: 03-19-2025 Preprocedural examination done [facility] Work Phone: Start: 03-19-2025 Encounter for other preprocedural examination RAKESH PALMA [facility] Start: 03-19-2025 End: 03-19-2025 [facility] Virtual Pre Anesthesia Comment on above: [...] 03-15-2025 Specialty Pharmacy Muna Fox [facility] Comment on above: SPP Oral Oncology/he matology - Medication Refill (Kisqali ) Start: 03-05-2025 End: 03-05-2025 Patient encounter ang Mann MD Work Phone: Plastic Surgery Comment on above: Inclusion cyst (Prim parker Dx) Start: 03-05-2025 End: 03-05-2025 ambulatory SUNNY Saunders GREGORY Facility:[facility] Start: 03-05-2025 End: 03-05-2025 ambulatory LEO GERARD Not Available Start: 03-04-2025 End: 03-04-2025 Telephone encounter Andres Mann MD Work Phone: Plastic Surgery Comment on above: Reschedule Post-op Start: 02-23-2025 [facility] Facility :[facility] Start: 02-23-2025 End: 02-23-2025 Subsequent hospital visit by physician Andres Mann MD Work Phone: [facility] Surgery Comment on above: Inclusion cyst [L72. 0] Start: 02-22-2025 End: 04-24-2025 Follow-up encounter Minal Khanna DO Work Phone: Kidney Medicine Start: 02-19-2025 End: 02-19-2025 Patient encounter procedure Minal Khanna DO Work Phone: Kidney Medicine Comment on above: Stage 3 chronic kidn ey disease, unspecified whether stage 3a or 3b CKD (HCC) (Primary Dx); Primary hypertension; Invasive lobular carcinoma of breast in female (HCC); Abnormal finding of blood chemistry, unspecified Start: 02-19-2025 End: 02-19-2025 [facility] Facility:[facility] Start: 02-17-2025 End: 02-17-2025 Telephone encounter Gómez Baker MD Work Phone: General Surgery Comment on above: Orders; Care Coordin ator - Other Start: 02-16-2025 End: 02-17-2025 Orders Only Leo Gerard GIN FEEDER-VENDOR MANAGEMENT CONSULTANT Work Phone: [facility] Comment [...] Subsequent hospital visit by physician Evelin Womack [facility] Rej Work Phone: Radiology Comment on [...] (Kisqali ) Start: 02-15-2025 End: 02-15-2025 ambulatory [facility] Start: 01-20-2025 End: 01-20-2025 Refill Sunny Jenkins MD Work Phone: [facility] Comment on above: Edema, unspecified t ype Start: 01-19-2025 End: 01-19-2025 Specialty Pharmacy [facility] Comment on above: SPP [...] Start: 12-30-2024 End: 12-30-2024 ambulatory SUNNY JENKINS Facility:[facility] Start: 12-24-2024 End: 12-24-2024 Nursing evaluation of patient and report Georgina Nurse Adolfo Solano Work Phone: Hematology/Oncology Comment on above: Invasive lobular car cinoma of breast in female (HCC) Start: 12-24-2024 End: 12-24-2024 ambulatory Lab[facility] Work Phone: Hematology/Oncology Comment on above: Invasive lobular car cinoma of breast in female (HCC) Start: 12-22-2024 End: 12-22-2024 Telephone encounter Marlee Myers RN Hematology Comment on above: Orders; Scheduling Start: 12-21-2024 End: 12-21-2024 Specialty Pharmacy [facility] Comment on above: SPP Oral Oncology/he matology - Medication Refill (Kisqali) Start: 11-23-2024 End: 11-24-2024 Specialty Pharmacy [facility] Comment on above: SPP Oral Oncology/he matology - Medication Refill (Kisqali 400 mg) EKG or bloodwork? Start: 10-26-2024 End: 10-26-2024 Specialty Pharmacy [facility] Comment on above: SPP Oral Oncology/he matology - Medication Refill (Kisqali) Start: 10-20-2024 End: 10-20-2024 Refill Sunny Jenkins MD Work Phone: [facility] Comment on above: Edema, unspecified t ype Start: 10-19-2024 Non-patient / Non-visit Ayaz Jenkins MD Work Phone: [facility] Out[facility] Work Phone: Start: 10-16-2024 End: 10-16-2024 Telephone encounter Nia Snider RN Hematology Comment on above: Forms Start: 10-15-2024 End: 10-15-2024 ambulatory SUNNY JENKINS Facility:[facility] Start: 10-15-2024 End: 10-15-2024 Office outpatient new 30 minutes Sierra Atkins MD Work Phone: General Surgery Comment on above: H/O left mastectomy (Primary Dx) Start: 10-14-2024 End: 10-14-2024 Refill Christine Conner GIN FEEDER-VENDOR MANAGEMENT CONSULTANT Work Phone: [facility] Comment on above: Hip pain, unspecifie d laterality Start: 10-13-2024 End: 10-13-2024 Telephone encounter Mitch Neri MD Work Phone: Hematology Comment on above: Orders Start: 10-13-2024 End: 10-13-2024 ambulatory Sunny Jenkins MD Work Phone: [facility] Work Phone: Start: 10-13-2024 End: 10-13-2024 Discharged Recurring Sunny Jenkins MD Work Phone: [facility] Start: 10-02-2024 End: 10-02-2024 Patient encounter procedure Mitch Neri MD Work Phone: Hematology Comment on above: Invasive lobular car cinoma of breast in female (HCC) (Primary Dx); Elevated serum creatinine; Lymphedema; Inconclusive mammogram; Encounter for screening mammogram for malignant neoplasm of breast Start: 10-02-2024 End: 11-23-2024 ambulatory SUNNY JENKINS Facility:[facility] Start: 09-30-2024 End: 09-30-2024 Patient encounter procedure Sunny Jenkins MD Work Phone: [facility] Work Phone: Start: 09-30-2024 End: 09-30-2024 ambulatory Sunny Jenkins MD Work Phone: [facility] Work Phone: Start: 09-29-2024 End: 09-29-2024 ambulatory MITCH NERI Facility:[facility] Start: 09-29-2024 End: 09-29-2024 Nursing evaluation of patient and report Georgina Solano Work Phone: Hematology/Oncology Comment on above: Invasive lobular car cinoma of breast in female (HCC) Start: 09-29-2024 Registered Recurring Sunny cardona MD Work Phone: [facility] Therapy Start: 09-21-2024 End: 09-21-2024 Specialty Pharmacy Suzanne Hung [facility] Comment on above: SPP Oral Oncology/he matology - Medication Refill (Kisqali 400mg) Start: 09-17-2024 End: 09-18-2024 ambulatory Mitch Neri MD Work Phone: Hematology Start: 09-17-2024 End: 09-18-2024 Patient encounter procedure Mitch Neri MD Work Phone: Hematology Comment on above: anastrozole Start: 09-14-2024 End: 09-21-2024 Telephone encounter Torri Ibarra RN Hematology Comment on above: Network Cabler - O ther (Follow up oral chemo kisquali) Patient Update Start: 09-13-2024 End: 09-13-2024 Refill Sunny Jenkins MD Work Phone: [facility] Comment on above: Edema, [...] Dx) Start: 08-12-2024 ambulatory SUNNY JENKINS Facility :[facility] Start: 07-28-2024 End: 07-29-2024 ambulatory Mitch Neri MD Work Phone: Hematology Start: 07-28-2024 End: 07-29-2024 Patient encounter procedure Mitch Neri MD Work Phone: Hematology Comment on above: Kisqali prescription Start: 07-26-2024 Non-patient / Non-visit Ayaz Jenkins MD Work Phone: [facility] Work Phone: Start: 07-25-2024 End: 07-26-2024 Refill Sunny Jenkins MD Work Phone: [facility] Comment on above: ASCVD (arteriosclero tic cardiovascular disease); Edema, unspecified type Start: 07-22-2024 End: 07-22-2024 Refill Sunny Jenkins MD Work Phone: [facility] Comment on above: Hypertension, unspec ified type Start: 07-20-2024 End: 07-30-2024 Telephone encounter Sandy Mcgregor MD, PhD Work Phone: Endocrinology Comment on above: Results Start: 07-18-2024 End: 07-20-2024 Refill Mitch Neri MD Work Phone: Hematology Comment on above: Refill Request Start: 07-17-2024 End: 07-17-2024 ambulatory MITCH NERI Facility:[facility] Start: 07-17-2024 Encounter for other preprocedural examination RAKESH PALMA [facility] Start: 07-17-2024 End: 07-17-2024 Nursing evaluation of patient and report Georgina Solano Work Phone: Hematology/Oncology Comment on above: Pre-op testing Start: 07-17-2024 End: 07-17-2024 Patient encounter status Georgina Solano Work Phone: [facility] Start: 07-16-2024 End: 09-08-[address] [facility] Start: 07-16-2024 End: 07-16-2024 Patient encounter procedure Mitch Neri MD Work Phone: Hematology Comment on above: Invasive lobular car cinoma of breast in female (HCC) (Primary Dx) SPP Oral Oncology/he matology - Treatment Referral (Kisqali 400 mg); Insurance Authorization ([place] pending) Start: 07-15-2024 End: 07-15-2024 ambulatory SUNNY JENKINS Facility:[facility] Start: 07-15-2024 End: 07-15-2024 Patient encounter procedure [...] Start: 06-23-2024 End: 06-23-2024 ambulatory RAKESH PALMA Facility:[facility] Start: 06-23-2024 End: 06-23-2024 Patient encounter procedure Rakesh Palma OD Work Phone: Ophthalmology Comment on above: Status post cataract surgery, right (Primary Dx); Status post cataract surgery, left Start: 06-21-2024 End: 06-21-2024 Refill Sunny Jenkins MD Work Phone: [facility] Comment on above: Edema, unspecified t ype Start: 06-18-2024 End: 06-18-2024 Subsequent hospital visit by physician [facility] Comment on above: Multiple thyroid nod ules [E04.2] Start: 06-18-2024 End: 06-18-2024 ambulatory Poonam Oglesby RT(R) Radiology Comment on above: Radiology Start: 06-18-2024 End: 06-18-2024 Patient encounter procedure Rakesh Palma OD Work Phone: Ophthalmology Comment on above: Status post cataract surgery, right (Primary Dx); Status post cataract surgery, left Start: 06-17-2024 End: 06-17-2024 ambulatory JOHANNE FITZGERALD Facility:[facility] Start: 06-10-2024 End: 06-14-2024 Telephone encounter Merary Resendiz CNA [facility] Comment on above: Referral Start: 06-10-2024 End: 06-10-2024 Patient encounter procedure Sunny Jenkins MD [facility] Comment on above: Medicare annual well ness visit, subsequent (Primary Dx); Seropositive rheumatoid arthritis ([facility]-HCC); Hip pain, unspecified laterality; Polyarthralgia Start: 06-10-2024 End: 06-10-2024 [facility] Start: 06-10-2024 Encounter for genera l adult medical examination without abnormal findings SUNNY Saunders GREGORY [facility] Start: 06-09-2024 End: 06-09-2024 ambulatory SUNNY JENKINS Facility:[facility] Start: 06-09-2024 End: 06-09-2024 Patient encounter procedure [...] Start: 06-03-2024 End: 06-03-2024 ambulatory MITCH NERI Facility:[facility] Start: 06-03-2024 End: 06-03-2024 ambulatory [facility] Facility:[facility] Start: 06-03-2024 End: 06-03-2024 Patient encounter procedure Johanne Fitzgerald MD Work Phone: Ophthalmology Comment on above: Follow-up examinatio n following surgery (Primary Dx) Start: 06-02-2024 End: 06-02-2024 ambulatory [facility] [place] [facility] [facility] Facility:[facility] Start: 06-01-2024 End: 06-01-2024 ambulatory Lab/[place] Work Phone: Hematology/Oncology Comment on above: Invasive lobular car cinoma of breast in female (HCC) (Primary Dx); Multiple thyroid nodules Hypertension, unspec ified type Start: 05-27-2024 End: 05-27-2024 ambulatory Muhamid Gregory Facility:[facility] Start: 05-26-2024 ambulatory [facility] Start: 05-19-2024 End: 05-19-2024 [facility] Sameera 1 Work Phone: Pre Anesthesia Comment on [...] Start: 05-19-2024 End: 05-19-2024 Preprocedural examination done [facility] [place] 1 Work Phone: [facility] Work Phone: Start: 05-15-2024 End: 05-15-2024 ambulatory Chemo Ed [facility] Rej Hematology Start: 05-15-2024 End: 05-15-2024 Patient [...] n Start: 04-22-2024 End: 04-22-2024 [facility] Start: 04-22-2024 End: 04-22-2024 Patient encounter procedure Muna Fox [facility] Comment on above: SPP Oral Oncology/he matology - Treatment Referral (Verzenio 150mg); Insurance Authorization (RAMESH martinezing) Start: 04-21-2024 End: 04-22-2024 Telephone encounter Isadora [...] 25 minutes Sunny Jenkins MD Work Phone: [facility] Comment on above: Seropositive rheumat oid arthritis ([facility]-HCC) (Primary Dx); Other acute pulmonary embolism without acute cor pulmonale ([facility]-HCC); Edema, unspecified type; Hypertension, unspecified type; Severe obesity (BMI >= 40) ([facility]-HCC); Cancer of overlapping sites of left breast ([facility]); Lower leg edema; Hip pain, unspecified laterality Start: 04-13-2024 End: 04-13-2024 ambulatory SUNNY JENKINS [facility] Start: 03-24-2024 Patient encounter procedure [...] encounter Mitch beebe MD Work Phone: Cancer [facility] Comment on above: Appointment Start: 02-13-2024 Telephone encounter Josef Austin MD Work Phone: Radiation Oncology Start: 02-12-2024 End: 02-12-2024 [facility] Start: 02-11-2024 End: 03-26-2024 ambulatory OLLIE Ferrara [facility] Start: 02-07-2024 ambulatory Windy Jiang [employer]LE[employer] ATTORNEY Radia tion Oncology Comment on above: Patient [...] End: 02-06-2024 Documentation procedure Bhavya Arenas RN [facility] Oncology - Radiation Oncology Start: 02-06-2024 Telephone encounter Yvonne Baumann RN Work Phone: Hematology/Oncology Comment on above: Care Coordination (C hange in treatment plan) Start: 01-29-2024 ambulatory Mitch Neri MD Work Phone: Hematology/Oncology Comment on above: Question on my radia tion schedule Start: 01-28-2024 End: 01-28-2024 ambulatory [facility] Start: 01-28-2024 End: 01-28-2024 Documentation procedure Bhavya Arenas RN [facility] Oncology - Radiation Oncology Start: 01-28-2024 End: 01-28-2024 ambulatory [facility] Start: 01-28-2024 End: 01-28-2024 Office outpatient visit 25 minutes Sunny Jenkins MD Work Phone: [facility] Comment on above: Multiple subsegmenta l pulmonary emboli without acute cor pulmonale (Primary Dx); Seropositive rheumatoid arthritis ([facility]); Severe obesity (BMI >= 40) ([facility]); 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 ([facility]-HCC); Hypertension, unspecified type; Other acute pulmonary embolism without acute cor pulmonale ([facility]-HCC) Start: 01-22-2024 Telephone encounter Yvonne Baumann RN Work Phone: Hematology/Oncology Comment on above: Care Coordination (L ab results) Start: 01-21-2024 End: 01-21-2024 Patient encounter procedure Mitch Neri MD Work Phone: Hematology/Oncology Start: 01-21-2024 End: 01-21-2024 ambulatory [facility] Work Phone: Hematology/Oncology Comment on above: Mass of right breast , unspecified quadrant; Invasive lobular carcinoma of breast in female (HCC); Other abnormal and inconclusive findings on diagnostic imaging of breast; Elevated transaminase level Invasive lobular car cinoma of breast in female (HCC) (Primary Dx) Couple of questions Start: 01-21-2024 Telephone encounter Mitch beebe MD Work Phone: Cancer [facility] Comment on above: Referral Information (Radiation) Start: 01-17-2024 End: 01-17-2024 ambulatory CATHY TEMPLETON [facility] Start: 01-15-2024 Telephone encounter Yvonne Baumann RN [...] Start: 01-14-2024 End: 01-14-2024 ambulatory [facility] Work Phone: Hematology/Oncology Comment on above: Invasive lobular car cinoma of breast in female (HCC) (Primary Dx); Cutaneous abscess of groin Start: 01-07-2024 Telephone encounter Mitch beebe MD Work Phone: Cancer [facility] Comment on above: Referral Information Start: 01-07-2024 End: 01-07-2024 Patient encounter procedure Mitch Neri MD Work Phone: Hematology/Oncology Start: 01-07-2024 End: 01-07-2024 ambulatory [facility] Work Phone: Hematology/Oncology Comment on above: Invasive lobular car cinoma of breast in female (HCC) Invasive lobular car cinoma of breast in female (HCC) (Primary Dx); Cutaneous abscess of groin Start: 01-06-2024 End: 01-06-2024 ambulatory [facility] Work Phone: Start: 01-06-2024 End: 01-06-2024 Patient encounter procedure [facility] Work Phone: Start: 12-31-2023 Chart abstracting Mary awan RN Work Phone: Hematology/Oncology Comment on above: Research (IRB [phone] [id number] Informed Consent) Start: 12-31-2023 End: 12-31-2023 Zoila Lewis MD Work Phone: [facility] Start: 12-31-2023 End: 12-31-2023 ambulatory Chair 20 Francine Work Phone: Hematology/Oncology Comment on above: Invasive lobular car cinoma of breast in female (HCC) (Primary Dx) Start: 12-24-2023 End: 12-24-2023 ambulatory Halina Carbajal APRN.VENDOR MANAGEMENT CONSULTANT Work Phone: [facility] Comment on above: Invasive lobular car cinoma of breast in female (HCC) (Primary Dx); S/P mastectomy, left Start: 12-24-2023 End: 12-24-2023 Telemedicine consultation with patient Halina Solomon LIN.VENDOR MANAGEMENT CONSULTANT Work Phone: [facility] Center Start: 12-24-2023 End: [...] 12-21-2023 End: 12-21-2023 Orders Only Leo Gerard GIN FEEDER-VENDOR MANAGEMENT CONSULTANT Work Phone: [facility] Start: 12-13-2023 End: 12-13-2023 Orders Only Sunny Jenkins MD Work Phone: [facility] Comment on above: Edema, unspecified t ype (Primary Dx) Multiple subsegmenta l pulmonary emboli without acute cor pulmonale (CMS-HCC) Start: 12-11-2023 End: 12-11-2023 Orders Only Leo Emersons GIN FEEDER-VENDOR MANAGEMENT CONSULTANT Work Phone: [facility] Start: 12-10-2023 End: 12-10-2023 Telephone encounter Kalyani Rachel CMA [facility] Start: 12-10-2023 End: 12-10-2023 Patient encounter procedure Brianna Renner GIN FEEDER.VENDOR MANAGEMENT CONSULTANT Work Phone: [facility] Start: 12-10-2023 End: 12-10-2023 [...] Office outpatient visit 10 minutes Leo Gerard GIN FEEDER-VENDOR MANAGEMENT CONSULTANT Work Phone: [facility] Comment on above: Intertrigo (Primary Dx); Jessica infection Start: 11-26-2023 End: 11-26-2023 Nutrition therapy Nona Lomax RD Work Phone: Nutrition Therapy Comment on above: Nutrition Assessment Start: 11-26-2023 End: 11-26-2023 Patient encounter procedure Mitch Neri MD Work Phone: [employer] Start: 11-26-2023 End: 11-26-2023 ambulatory [facility] Work Phone: Hematology/Oncology Comment on above: Chest pain, unspecif ied type; Invasive lobular carcinoma of breast in female (HCC); Generalized edema Invasive lobular car cinoma of breast in female (HCC) (Primary Dx) Start: 11-19-2023 Telephone encounter Merary Resendiz CNA [facility] Comment on above: HomeHealth Start: 11-14-2023 End: 11-14-2023 Transitional care manage srvc 7 day discharge Leo Gerard APRN-VENDOR MANAGEMENT CONSULTANT Work Phone: [facility] Comment [...] Start: 11-05-2023 End: 11-05-2023 ambulatory BRIANNA RENNER [facility] Start: 11-05-2023 Telephone encounter Yvonne Baumann RN Work Phone: Hematology/Oncology Comment on above: Care Coordination (P E) Multiple subsegmenta l pulmonary emboli without acute cor pulmonale (CMS-HCC) (Primary Dx) Start: 11-05-2023 End: 11-05-2023 Patient encounter procedure Brianna Mumtaz GIN FEEDER.VENDOR MANAGEMENT CONSULTANT Work Phone: [facility] Start: 11-05-2023 End: 11-05-2023 ambulatory Lab/[place] Work Phone: Hematology/Oncology Comment on above: Invasive [...] state Start: 10-23-2023 End: 10-23-2023 ambulatory Lab/[place] Work Phone: Hematology/Oncology Comment on above: [...] Office outpatient visit 10 minutes Leo Gerard GIN FEEDER-VENDOR MANAGEMENT CONSULTANT Work Phone: [facility] Comment on above: Right non-suppurativ e otitis media (Primary Dx); Acute recurrent sinusitis, unspecified location; Acute rhinitis Start: 10-07-2023 Telephone encounter Cassia Mejia RN An mike Comment on above: Patient Question Start: 09-27-2023 Telephone encounter Yvonne Baumann RN Work Phone: Hematology/Oncology Comment on above: Care Coordination (a ppointments) Start: 09-26-2023 End: 09-26-2023 [facility] Kenny 1 Work Phone: Pre Anesthesia Comment on above: Preoperative clearan ce (Primary Dx); Mixed hyperlipidemia; Primary hypertension; Palpitations; PETERSON (dyspnea on exertion); Disorder of mitral valve; Morbid obesity (HCC); Edema, unspecified type; Idiopathic scoliosis and kyphoscoliosis; Rheumatoid arthritis, involving unspecified site, unspecified whether rheumatoid factor present (HCC) Start: 09-26-2023 End: 09-26-2023 Preoperative state Pacc 1 Work Phone: [facility] Work Phone: Start: 09-25-2023 Telephone encounter Citlali Sanchez CMA [facility] Physicians General Surgery Start: 09-24-2023 End: 10-25-2023 ambulatory [facility] Start: 09-20-2023 End: 09-21-2023 ambulatory [facility] Facility:[facility] Start: 09-18-2023 End: 09-18-2023 ambulatory [facility] Start: 08-23-2023 Telephone encounter Kalyani Cadena [facility] Physicians Family Medicine Start: 08-06-2023 End: 08-06-2023 Patient encounter procedure Halina Carbajal APRN.VENDOR MANAGEMENT CONSULTANT Work Phone: Breast Center Comment on above: Invasive lobular car cinoma of left breast in female (HCC) (Primary Dx); S/P left mastectomy Start: 08-06-2023 End: 08-06-2023 ambulatory Mendoza Yang MD Work Phone: Hematology/Oncology Comment on above: Invasive lobular car cinoma of breast in female (HCC) (Primary Dx) Start: 08-06-2023 End: 08-06-2023 Patient encounter procedure Mendoza Yang MD Work Phone: [facility] Start: 07-29-2023 End: 07-29-2023 Patient encounter status Rita Amanda Work Phone: [facility] Start: 07-29-2023 End: 07-29-2023 Subsequent hospital visit by physician [facility] Work Phone: Molecular Imaging Comment on above: Invasive lobular car cinoma of breast in female (HCC) [C50.919] Start: 07-26-2023 End: 07-26-2023 [facility] Kenny 4 Work Phone: Pre Anesthesia Comment on above: Preop examination (P rimary Dx); Mixed hyperlipidemia; Primary hypertension; Palpitations; PETERSON (dyspnea on exertion); Gastroesophageal reflux disease, unspecified whether esophagitis present; Disorder of mitral valve; Morbid obesity (HCC); Edema, unspecified type; Idiopathic scoliosis and kyphoscoliosis; Rheumatoid arthritis, involving unspecified site, unspecified whether rheumatoid factor present (HCC) Start: 07-26-2023 End: 07-26-2023 Preprocedural examination done [facility] 4 Work Phone: [facility] Work Phone: Start: 07-24-2023 Telephone encounter Leatha tillman RN Work Phone: Breast Center Comment on above: Network Cabler - O ther (methotrexate) Start: 07-23-2023 End: [...] surgery center DO Janet Dillard Work Phone: [facility]-Ultrasound [facility] [place] Work Phone: Start: 02-28-2023 End: 02-28-2023 ambulatory DO Janet Dillard Work Phone: [facility] Work Phone: Start: 02-08-2023 ambulatory Micah Son DO Work Phone: Orthopaedics Start: 02-08-2023 E-mail encounter jacqui saunders caregiver Micah Son DO Work Phone: NAYAN HOANG [facility] Start: 01-30-2023 Telephone encounter Elida jurado PA-C Work Phone: Pre Anesthesia Comment on above: Reschedule PACC Start: 01-29-2023 End: 01-29-2023 Admission to establishment Pacc [place] [facility] 2 Work Phone: [facility] Start: 01-29-2023 End: 01-29-2023 ambulatory Pacc [place] [facility] Work Phone: Pre Anesthesia Comment on above: Canceled (CC cx: Equ ipment, Prep, Appropriateness) Start: 12-10-2022 End: 12-11-2022 Evaluation and management of inpatient DR DONTE CUELLAR . Facility: Start: 12-07-2022 End: 12-07-2022 ambulatory Debbie Ramirez Other [facility] Other Start: 12-07-2022 Office outpatient vi sit 15 minutes Debbie Ramirez [facility] Start: 12-03-2022 End: 12-03-2022 ambulatory Karen Parrish Other [facility] Other Start: 12-03-2022 Office outpatient vi sit 25 minutes Karen Parrish [facility] Start: 10-02-2022 End: 10-02-2022 ambulatory PHYSICIAN NO [facility] Work Phone: Start: 10-02-2022 End: 10-02-2022 Departed Referred PHYSICIAN NO [facility] [place] Work Phone: Start: 09-19-2022 End: 09-19-2022 ambulatory Nell Trujillo APRN.VENDOR MANAGEMENT CONSULTANT Work Phone: Gastroenterology Comment on above: Gastroesophageal ref lux disease, unspecified whether esophagitis present (Primary Dx); Screening for colon cancer; Hiatal hernia Start: 09-19-2022 End: 09-19-2022 Telemedicine consultation with patient Nell Trujillo APRN.VENDOR MANAGEMENT CONSULTANT Work Phone: NIGHAT SAMEERA [facility] Start: 09-06-2022 End: 09-06-2022 Patient encounter procedure Micah Son DO Work Phone: Orthopaedics Comment on above: 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 (Primary Dx) Start: 08-12-2022 End: 08-12-2022 ambulatory DO Janet Raj Mathewe Work Phone: [facility] Work Phone: Start: 08-12-2022 End: 08-12-2022 Departed Referred DO Janet Gilma Work Phone: [facility]-Lab [facility] [place] Start: 07-03-2022 ambulatory Facility:[facility] Start: 07-02-2022 ambulatory Facility:9 [id number] Start: 07-02-2022 End: 07-02-2022 ambulatory DO Janet G Gilma Work Phone: [facility] Work Phone: Start: 07-02-2022 End: 07-02-2022 Patient encounter procedure DO Janet Gilma Work Phone: [facility]-Electrodiagnostics Start: 06-17-2022 End: 06-17-2022 ambulatory Dayanna Schumacher Other [facility] Other Start: 06-17-2022 Office outpatient vi sit 15 minutes Dayanna Schumacher [facility] Start: 05-02-2022 End: 05-02-2022 Patient encounter procedure HENRIK Perez Work Phone: [facility]-MRI [facility] [place] Start: 04-03-2022 End: 04-03-2022 Orders Only Lopez Salmon DO Work Phone: Neurology Comment on above: Thyroid nodule (Prim parker Dx) BMI 50.0-59.9, adult (HCC) (Primary Dx); Primary osteoarthritis of left hip; Type 2 diabetes mellitus with hyperglycemia, unspecified whether penitentiary insulin use (HCC) Start: 03-29-2022 End: 03-29-2022 Subsequent hospital visit by physician [facility] Work Phone: [facility]iology Ultrasound Comment on above: Thyroid [...] upper extremity Start: 03-15-2022 Orders Only Meño Surinder DO Work Phone: Endovascular Center Comment on above: Right arm weakness ( Primary Dx) Start: 03-13-2022 End: 03-14-2022 ambulatory GABBY GREY Facility:[facility]1 Start: 12-19-2021 End: 12-19-2021 Patient encounter procedure Micah Son DO Work Phone: Orthopaedics Comment on above: 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 (Primary Dx) Start: 12-15-2021 Telephone encounter Nayan Yan DO Work Phone: [address] [place] [address] Comment on above: Results Start: 12-08-2021 End: 12-08-2021 ambulatory [facility] Work Phone: Cardiology Comment on above: Event (Zio patch) Start: 12-08-2021 End: 12-08-2021 Patient encounter procedure John Dc MD Work Phone: Cardiology Comment on above: AF (paroxysmal atria l fibrillation) (HCC) (Primary Dx) Start: 07-07-2021 End: 07-07-2021 ambulatory Debbie Ramirez Other [facility] Other Start: 07-07-2021 Nursing evaluation o f patient and report Debbie Ramirez [facility] Start: 10-02-2018 Patient encounter procedure [facility] Start: 05-19-2018 Patient encounter procedure [facility] Start: 03-31-2018 End: 04-03-2018 Patient encounter procedure [facility] Start: 02-24-2018 Patient encounter procedure [facility] Procedures Date Procedure Procedure Detail Performing Clinician Start: 04-16-2025 Brncdilat rspse spmt ry pre&post-brncdilat admn Boom Tim MD Work Phone: Start: 04-05-2025 Adult depression scr eening assessment Rakesh Lamb DO Work Phone: Start: 03-30-2025 MAMM SCREENING BILAT ERAL W CAD Leo Gerard GIN FEEDER-VENDOR MANAGEMENT CONSULTANT Work Phone: Start: 03-30-2025 End: 03-30-2025 Blood count complete auto&auto difrntl wbc Mitch Neri MD Work Phone: Start: 02-19-2025 Urnls dip stick/tabl et rgnt auto w/o microscopy Minalzen Khanna DO Work Phone: Start: 02-15-2025 Arthrocentesis aspir &/inj major jt/bursa w/us Micah D Son DO Work Phone: Start: 02-15-2025 Arthrocentesis aspir &/inj major jt/bursa w/us Micah D Son DO Work Phone: Start: 02-15-2025 Radex hip unilateral with pelvis 2-3 views Micah Son DO Work Phone: Start: 12-24-2024 Ecg routine ecg w/le ast 12 lds i&r only [facility] Provider Start: 12-24-2024 Blood count complete auto&auto difrntl wbc Mitch Neri MD Work Phone: Start: 09-30-2024 Dual energy X-ray absorptiometry Sunny Jenkins MD Work Phone: Start: 09-11-2024 Blood count complete auto&auto difrntl nishant Neri MD Work Phone: Start: 07-17-2024 Ecg [...] Work Phone: Start: 01-21-2024 Bilirubin direct Cathy Lucas Yokasta PA-C Work Phone: Start: 01-14-2024 Blood count complete auto&auto difrntl wbc Mitch Neri MD Work Phone: Start: 01-07-2024 Blood count complete auto&auto difrntl wbc Mitch Neri MD Work Phone: Start: 12-31-2023 Blood count complete auto&auto difrntl wbc iMtch Neri MD Work Phone: Start: 12-24-2023 Blood count complete auto&auto difrntl wbc Brianna Renner GIN FEEDER.VENDOR MANAGEMENT CONSULTANT Work Phone: Start: 12-10-2023 Blood count complete auto&auto difrntl wbc Cathy Saunders Yokasta PA-C Work Phone: Start: 12-03-2023 Blood count complete auto&auto difrntl wbc Mitch Neri MD Work Phone: Start: 11-26-2023 Blood count complete auto&auto difrntl wbc Brianna Renner GIN FEEDER.VENDOR MANAGEMENT CONSULTANT Work Phone: Start: 11-05-2023 CBC + DIFF Mitch beebe MD Work Phone: Start: 11-05-2023 Comprehensive metabo lic panel Mitch Neri MD Work Phone: Start: 10-22-2023 Blood count complete auto&auto difrntl wbc Cathy Saunders Yokasta PA-C Work Phone: Start: 07-29-2023 Lymphatics & lymph n odes imaging Heather Castillo MD Work Phone: Start: 07-23-2023 Us lmtd joint/oth no nvasc xtr strux r-t w/img Heather Castillo MD Work Phone: Start: 05-14-2023 Adult depression scr eening assessment Kalyani Rachel CMA Start: 04-24-2023 Lipid 1996 panel - S cl[place] or Plasma Milton Tim RN Start: 02-11-2023 Colonoscopy Milton torres RN Start: 09-06-2022 Arthrocentesis aspir &/inj major jt/bursa w/us Micah D Son DO Work Phone: Start: 08-12-2022 Urine culture PHYSICIAN NO FAMILY Start: 03-29-2022 soft tissue head & neck real time imge docm Meño Cadena DO Work Phone: Start: 03-23-2022 Radex hip unilateral with pelvis 2-3 views Nayan Yan DO Work Phone: Start: 02-08-2022 Mammography Lopez Cullen galileo DO Work Phone: Start: 12-19-2021 End: 12-19-2021 Arthrocentesis aspir&/inj major jt/bursa w/us Micah D Son DO Work Phone: Start: 09-12-2020 Mammography Meño Arzola marcel DO Work Phone: Start: 03-19-2018 Antibody screen DONTE MARCOS Comment on above: Performed By: #### T SCR[address] #### [place] [address] Start: 07-23-2016 Colonoscopy John torres MD Work Phone: Start: 01-10-2010 Adult depression scr eening assessment John Dc MD Work Phone: Plan of Treatment Date Care Activity Detail Author Start: 04-24-2028 Lipid 1996 panel - Serum or Plasma Lipid Screening [facility] Start: 04-24-2028 Lipid panel Lipid Screening [facility] Start: 03-30-2028 Diabetes Screening Diabetes Screening [facility] Start: 02-12-2028 Colonoscopy Colonoscopy [facility] Start: 02-12-2028 Colorectal Cancer Screening Colorectal Cancer Screening [facility] Start: 02-12-2028 Screening for malignant neoplasm of colon [facility] Start: 12-25-2027 Diabetes Screening Diabetes Screening [facility] Start: 11-09-2027 LIPID SCREEN LIPID SCREEN [facility] Start: 09-11-2027 Diabetes Screening Diabetes Screening [facility] Start: 07-14-2027 Diabetes Screening Diabetes Screening [facility] Start: 07-06-2027 Diabetes Screening Diabetes Screening [facility] Start: 06-01-2027 Diabetes Screening Diabetes Screening [facility] Start: 05-05-2027 Diabetes Screening Diabetes Screening [facility] Start: 04-21-2027 Diabetes Screening Diabetes Screening [facility] Start: 03-03-2027 Diabetes Screening Diabetes Screening [facility] Start: 01-20-2027 Diabetes Screening Diabetes Screening [facility] Start: 01-16-2027 Diabetes Screening Diabetes Screening [facility] Start: 01-13-2027 Diabetes Screening Diabetes Screening [facility] Start: 01-06-2027 Diabetes Screening Diabetes Screening [facility] Start: 12-30-2026 Diabetes Screening Diabetes Screening [facility] Start: 12-23-2026 Diabetes Screening Diabetes Screening [facility] Start: 12-09-2026 Diabetes Screening Diabetes Screening [facility] Start: 12-02-2026 Diabetes Screening Diabetes Screening [facility] Start: 11-25-2026 Diabetes Screening Diabetes Screening [facility] Start: 11-04-2026 Diabetes Screening Diabetes Screening [facility] Start: 10-22-2026 Diabetes Screening Diabetes Screening [facility] Start: 09-20-2026 Diabetes Screening Diabetes Screening [facility] Start: 07-26-2026 Diabetes Screening Diabetes Screening [facility] Start: 04-24-2026 Diabetes Screening Diabetes Screening [facility] Start: 04-05-2026 Adult BMI Screening Adult BMI Screening [facility] Start: 04-05-2026 Depression Screening Depression Screening [facility] Start: 04-05-2026 Tobacco Screening Tobacco Screening [facility] Start: 03-30-2026 Complete blood count Hemoglobin/Hematocrit [facility] Start: 03-30-2026 Creatinine measurement Serum Creatinine [facility] Start: 03-30-2026 Screening for malignant neoplasm of breast Mammogram Screening [facility] Start: 03-05-2026 Screening for malignant neoplasm of breast Mammogram Screening [facility] Start: 12-30-2025 BP Controlled (<130/80) BP Controlled (<130/80) [facility] in Start: 12-24-2025 Complete blood count Hemoglobin/Hematocrit [facility] Start: 12-24-2025 Creatinine measurement Serum Creatinine [facility] Start: 11-08-2025 DIABETES SCREEN DIABETES SCREEN [facility] Start: 11-01-2025 End: 11-01-2025 Patient encounter procedure 11/01/2025 2:00 PM EDT Office Visit Rheumatology [address] [facility] [place] [address] Nany Lopez MD [address] [place], [place] [id number] RA Rheumatology Comment on above: RA Start: 09-11-2025 Complete blood count Hemoglobin/Hematocrit [facility] Start: 09-11-2025 Creatinine measurement Serum Creatinine [facility] Start: 08-23-2025 End: 08-23-2025 Patient encounter procedure [facility] Comment on above: 6 month follow up Start: 07-16-2025 BP Controlled (<130/80) BP Controlled (<130/80) [facility] Start: 07-15-2025 BP Controlled (<130/80) BP Controlled (<130/80) [facility] Start: 07-15-2025 End: 07-15-2025 ambulatory 07/15/2025 9:00 AM [facility] Hematology/Oncology [address] [place] [address] [place] [address] Prolia injection day after RADHA virtual visit per staff message Hematology/Oncology Comment on above: Prolia injection day after RADHA virtual v isit per staff message Start: 07-14-2025 End: 10-13-2025 CBC W Auto Differential panel - Blood COMPLETE BLOOD COUNT AND DIFFERENTIAL Lab Routine Invasive lobular carcinoma of breast in female (HCC) Expected: 07/14/2025 (Approximate), Expires: 10/13/2025 [facility] Work Phone: Comment on above: Expected: 07/14/2025 (Approximate), Expi res: 10/13/2025 Start: 07-14-2025 End: 10-13-2025 Comprehensive metabolic 2000 panel - Serum or Plasma COMPREHENSIVE METABOLIC PANEL Lab Routine Invasive lobular carcinoma of breast in female (HCC) Expected: 07/14/2025 (Approximate), Expires: 10/13/2025 [facility] Comment on above: Expected: 07/14/2025 (Approximate), Expi res: 10/13/2025 Start: 07-14-2025 Creatinine measurement Serum Creatinine [facility] Start: 07-14-2025 End: 07-14-2025 Patient encounter procedure 07/14/2025 9:30 AM EST [facility] Hematology [address] [place] [address] Mitch Neri MD [address] [place] [id number] Schedule labs prior to Virtual visit with DR Neri Hematology Comment on above: Schedule labs prior to Virtual visit wit DR Neri Start: 07-07-2025 End: 07-07-2025 ambulatory 07/07/2025 9:00 AM [facility] Hematology/Oncology [address] [place] [address] [place] [address] lab Hematology/Oncology Comment on above: lab Start: 07-06-2025 Complete blood count Hemoglobin/Hematocrit [facility] Start: 07-06-2025 Creatinine measurement Serum Creatinine [facility] Start: 06-22-2025 End: 06-22-2025 Patient encounter procedure 06/22/2025 9:00 AM EDT Office Visit [facility] Physicians Family Medicine [address] [place] [phone] Sunny Jenkins MD [address] [place] [address] [facility] Start: 06-10-2025 Adult BMI Screening Adult BMI Screening [facility] Start: 06-10-2025 Depression Screening Depression Screening [facility] Start: 06-10-2025 Fall Risk Screening Fall Risk Screening [facility] Start: 06-10-2025 Medicare Annual Wellness Visit Medicare Annual Wellness Visit [facility] Start: 06-10-2025 Tobacco Screening Tobacco Screening [facility] Start: 06-10-2025 End: 06-10-2025 Patient encounter procedure 06/10/2025 1:30 PM EDT Appointment Procedures [address] [place] [address] Debbie Gunn MD [address] [facility] [address] [place], [place] [id number] Procedures Start: 06-01-2025 Complete blood count Hemoglobin/Hematocrit [facility] Start: 06-01-2025 Creatinine measurement Serum Creatinine [facility] Start: 05-24-2025 End: 05-24-2025 Anesthesia consultation 05/24/2025 8:00 AM EDT PAT Pre Anesthesia [address] [place] [address] Virtual pacc/06/10/ [phone] Pre Anesthesia Comment on above: Virtual pacc/06/10/ph [phone] Start: 05-17-2025 End: 05-17-2025 Patient encounter procedure 05/17/2025 8:30 AM EDT Office Visit Pulmonary Medicine [address] [place], [place] [id number] Dayanna Alatrore APRN.VENDOR MANAGEMENT CONSULTANT [address] [place] [address] Return in about 1 month (around 05/17/2025). Pulmonary Medicine Comment on above: Return in about 1 month (around ). Start: 05-17-2025 End: 05-17-2025 ambulatory Pulmonary Lab Comment on above: Dyspnea and respiratory abnormalities [R 06.00, R06.89] Start: 05-10-2025 End: 05-10-2025 Specialty Pharmacy 05/10/2025 7:15 AM EDT Specialty Pharmacy [facility] [address] [place] [address] Drive [id number] [place] [address] Pharmacist, [facility] [address] [place] [address] [place] [address] Refill - Kisqali [28DS] [facility] Comment on above: Refill - Kisqali [28DS] Start: 05-05-2025 BP Controlled (<130/80) BP Controlled (<130/80) [facility] Start: 05-05-2025 Complete blood count Hemoglobin/Hematocrit [facility] Start: 05-05-2025 Creatinine measurement Serum Creatinine [facility] Start: 05-05-2025 End: 08-04-2025 Thyrotropin [Units/volume] in Serum or Plasma THYROID STIMULATING HORMONE Lab Routine Multiple thyroid nodules Expected: 05/05/2025, Expires: 08/04/2025 [facility] Work Phone: Comment on above: Expected: 05/05/2025, Expires: Start: 04-26-2025 Influenza vaccination [facility] Start: 04-21-2025 Complete blood count Hemoglobin/Hematocrit [facility] Start: 04-21-2025 Creatinine measurement Serum Creatinine [facility] Start: 04-14-2025 End: 04-14-2025 Specialty Pharmacy 04/14/2025 7:45 AM EDT Specialty Pharmacy [facility] [email or web address] [address] [address] Pharmacist, [facility] [address] [place] [address] Refill - Kisqali [28DS] C025 - refill rqst 04/09 [facility] Comment on above: Refill - Kisqali [28DS] C0825 - refill rqst 04/09 Start: 04-13-2025 End: 04-13-2025 Patient encounter procedure 04/13/2025 2:45 PM EDT Visit (SP) Office Hematology [address] [place] [address] Mitch Neri MD [address] [place] [address] F/U with Dr. Neri Hematology Comment on above: F/U with Dr. Neri Start: 04-13-2025 Tobacco Screening Tobacco Screening [facility] Start: 04-12-2025 End: 04-12-2025 Specialty Pharmacy 04/12/2025 7:30 AM EDT Specialty Pharmacy [facility] [email or web address] [address] [place] [address] Pharmacist, [facility] 1 [address] [facility] [place], [place] [id number] Refill - Kisqali [28DS] C004/19 [facility] Comment on above: Refill - Kisqali [28DS] Start: 04-05-2025 End: 04-05-2025 ambulatory 04/05/2025 10:00 AM EDT Infusion Center Hematology/Oncology [address] [place] [address] [place] [address] activase per Nel L Hematology/Oncology Comment on above: activase per Nel L Start: 04-02-2025 End: 04-02-2025 Patient encounter procedure Procedures Comment on above: Hiatal hernia [K44.9] Start: 04-01-2025 End: 04-01-2025 Patient encounter procedure 04/01/2025 3:15 PM EDT Office Visit [facility] Family Medicine [address] [place] [address] [place] [phone] Sunny Jenkins MD [address] [place] [address] [facility] Physicians Family Medicine Start: 04-01-2025 End: 07-01-2025 CBC W Auto Differential panel - Blood COMPLETE BLOOD COUNT AND DIFFERENTIAL Lab Routine Invasive lobular carcinoma of breast in female (HCC) Expected: 04/01/2025 (Approximate), Expires: 07/01/2025 [facility] Work Phone: Comment on above: Expected: 04/01/2025 (Approximate), Expi res: 07/01/2025 Start: 04-01-2025 End: 07-01-2025 Comprehensive metabolic 2000 panel - Serum or Plasma COMPREHENSIVE METABOLIC PANEL Lab Routine Invasive lobular carcinoma of breast in female (HCC) Expected: 04/01/2025 (Approximate), Expires: 07/01/2025 [facility] Comment on above: Expected: 04/01/2025 (Approximate), Expi res: 07/01/2025 Start: 04-01-2025 End: 04-01-2025 Patient encounter procedure Hematology Comment on above: F/U with Dr. Neri 04/01/25 Stage 3 chronic kidn ey disease, unspecified whether stage 3a or 3b CKD (HCC) [N18.30] Start: 03-19-2025 End: 03-19-2025 Anesthesia consultation 03/19/2025 10:30 AM EDT PAT Pre Anesthesia [id number] [address] [address] VV [id number] EGD 04/02 Pre Anesthesia Comment on above: VV [phone] EGD 04/02 Start: 03-16-2025 DIABETES SCREEN DIABETES SCREEN [facility] Start: 03-15-2025 DIABETES SCREEN DIABETES SCREEN [facility] Start: 03-15-2025 End: 03-15-2025 Specialty Pharmacy 03/15/2025 7:15 AM EDT Specialty Pharmacy [facility] [address] [place], [place] [id number][id number] [place] [address] Pharmacist, [address]ty[address] [place] [address] Refill - Kisqali [28DS] [facility] Comment on above: Refill - Kisqali [28DS] C003/22 Start: 03-05-2025 End: 03-05-2025 Patient encounter procedure 03/05/2025 11:30 AM EDT Office Visit Plastic Surgery [address] [place] [phone] Andres Mann MD [facility] [place] [address] POST OP Plastic Surgery Comment on above: POST OP Start: 03-04-2025 End: 03-04-2025 Patient encounter procedure 03/04/2025 11:45 AM EDT Office Visit Plastic Surgery [address] [place] [phone] Andres Mann MD [address] [place] [address] POST OP Plastic Surgery Comment on above: POST OP Start: 03-03-2025 Complete blood count Hemoglobin/Hematocrit [facility] Start: 03-03-2025 Creatinine measurement Serum Creatinine [facility] Start: 02-23-2025 End: 02-23-2025 Admission to same day surgery center [facility] Surgery Comment on above: CLOSURE COMPLEX WOUND OF CHEEK(S) 1.1 -> 2.5CM Start: 02-23-2025 End: 02-23-2025 Repair complex f/c/c/m/n/ax/g/h/f 1.1-2.5 cm AV OR Start: 02-23-2025 Subsequent hospital visit by physician [facility] Surgery Comment on above: Inclusion cyst [L72.0] Start: 02-19-2025 End: 05-21-2025 25-hydroxyvitamin D3 [Mass/volume] in Serum or Plasma VITAMIN D 25 HYDROXY Lab Routine Stage 3 chronic kidney disease, unspecified whether stage 3a or 3b CKD (HCC) Primary hypertension Expected: 02/19/2025, Expires: 05/21/2025 [facility] Comment on above: Expected: 02/19/2025, Expires: Start: 02-19-2025 End: 05-21-2025 Hemoglobin A1c in Blood HEMOGLOBIN A1C Lab Routine Stage 3 chronic kidney disease, unspecified whether stage 3a or 3b CKD (HCC) Abnormal finding of blood chemistry, unspecified Expected: 02/19/2025, Expires: 05/21/2025 [facility] Comment on above: Expected: 02/19/2025, Expires: Start: 02-19-2025 End: 05-21-2025 Parathyrin.intact [Mass/volume] in Serum or Plasma PTH INTACT Lab Routine Stage 3 chronic kidney disease, unspecified whether stage 3a or 3b CKD (HCC) Expected: 02/19/2025, Expires: 05/21/2025 [facility] Comment on above: Expected: 02/19/2025, Expires: Start: 02-19-2025 End: 05-21-2025 Renal function 2000 panel - Serum or Plasma RENAL FUNCTION PANEL Lab Routine Stage 3 chronic kidney disease, unspecified whether stage 3a or 3b CKD (HCC) Primary hypertension Expected: 02/19/2025, Expires: 05/21/2025 [facility] Comment on above: Expected: 02/19/2025, Expires: Start: 02-19-2025 End: 02-19-2025 Patient encounter procedure 02/19/2025 8:20 AM EDT Office Visit Kidney Medicine [address] [place] [address] Minal Khanna DO [address] [place] [address] Elevated serum creatinine Kidney Medicine Comment on [...] 11:10 AM EDT Office Visit General Surgery [address] [facility] [place] [address] Gó[place] [address] [place] [address] Hiatal hernia [K44.9] General Surgery Comment on above: Hiatal hernia [K44.9] Start: 02-15-2025 End: 02-15-2025 Patient encounter procedure Plastic Surg nat Comment on above: SHEBA ok to add per Nidia Follow up Start: 02-15-2025 End: 02-15-2025 Specialty Pharmacy 02/15/2025 7:15 AM EDT Specialty Pharmacy [facility] [address] [facility] [address] [place] [address] Pharmacist, Specialtygroup [address] [place] [address] [place], [place] [id number] Refill - Kisqali [28DS] C002/22 [facility] Comment on above: Refill - Kisqali [28DS] C002/22 Start: 02-06-2025 BP Controlled (<130/80) BP Controlled (<130/80) [facility] Start: 01-27-2025 Adult BMI Screening Adult BMI Screening [facility] Start: 01-27-2025 Tobacco Screening Tobacco Screening [facility] Start: 01-23-2025 Screening for malignant neoplasm of breast Mammogram Screening [facility] Start: 01-20-2025 Complete blood count Hemoglobin/Hematocrit [facility] Start: 01-20-2025 Creatinine measurement Serum Creatinine [facility] Start: 01-19-2025 End: 01-19-2025 Specialty Pharmacy 01/19/2025 7:30 AM EDT Specialty Pharmacy [facility] [address] [place], [place] [id number]-[id number] [place] [address] Pharmacist, Specialtygroup [address] [place] [address] Refill - Kisqali [28DS] C001/25 [facility] Comment on above: Refill - Kisqali [28DS] C001/25 Start: 01-16-2025 Creatinine measurement Serum Creatinine [facility] Start: 01-13-2025 BP Controlled (<130/80) BP Controlled (<130/80) [facility] Start: 01-13-2025 Complete blood count Hemoglobin/Hematocrit [facility] Start: 01-13-2025 Creatinine measurement Serum Creatinine [facility] Start: 01-11-2025 End: 01-11-2025 Patient encounter procedure 01/11/2025 9:20 AM EDT Office Visit Kidney Medicine [address] [place] [phone] [place] [address] [place] [address] Elevated serum creatinine [R79.89] Kidney Medicine Comment on above: Elevated serum creatinine [R79.89] Start: 01-06-2025 BP Controlled (<130/80) BP Controlled (<130/80) [facility] inic Start: 01-06-2025 Complete blood count Hemoglobin/Hematocrit [facility] Start: 01-06-2025 Creatinine measurement Serum Creatinine [facility] Start: 12-30-2024 End: 03-31-2025 CBC W Auto Differential panel - Blood COMPLETE BLOOD COUNT AND DIFFERENTIAL Lab Routine Invasive lobular carcinoma of breast in female (HCC) Expected: 12/30/2024 (Approximate), Expires: 03/31/2025 [facility] Comment on above: Expected: 12/30/2024 (Approximate), Expi res: 03/31/2025 Start: 12-30-2024 Complete blood count Hemoglobin/Hematocrit [facility] Start: 12-30-2024 End: 03-31-2025 Comprehensive metabolic 2000 panel - Serum or Plasma COMPREHENSIVE METABOLIC PANEL Lab Routine Invasive lobular carcinoma of breast in female (HCC) Expected: 12/30/2024 (Approximate), Expires: 03/31/2025 [facility] Work Phone: Comment on above: Expected: 12/30/2024 (Approximate), Expi res: 03/31/2025 Start: 12-30-2024 Creatinine measurement Serum Creatinine [facility] Start: 12-30-2024 End: 11-01-2025 DBT Breast - bilateral screening TINO SCREENING W SULMA Radiology Routine Invasive lobular carcinoma of breast in female (HCC) Encounter for screening mammogram for malignant neoplasm of breast Expected: 12/30/2024, Expires: 11/01/2025 [facility] Comment on above: Expected: 12/30/2024, Expires: Start: 12-30-2024 End: 12-30-2024 Admission to same day surgery center 12/30/2024 9:45 AM EDT Visit (SP) Office Hematology [address] [place] [address] Mitch Neri MD [address] [place] [address] Schedule consult with plastic surgery Hematology Comment on above: Schedule consult with plastic surgery Start: 12-30-2024 End: 12-30-2024 Patient encounter procedure 12/30/2024 9:45 AM EDT Visit (SP) Office Hematology [address] [place] [address] Mitch Neri MD [address] [place] [address] BREAST CA Hematology Comment on above: BREAST CA Start: 12-24-2024 End: 12-24-2024 ambulatory 12/24/2024 9:00 AM EDT [facility] Hematology/Oncology [address] [place] [address] [place] [address] lab/port Hematology/Oncology Comment on above: lab/port Start: 12-23-2024 BP Controlled (<130/80) BP Controlled (<130/80) [facility] in Start: 12-23-2024 Complete blood count Hemoglobin/Hematocrit [facility] Start: 12-23-2024 Creatinine measurement Serum Creatinine [facility] Start: 12-21-2024 End: 12-21-2024 Specialty Pharmacy 12/21/2024 8:00 AM EDT Specialty Pharmacy [facility] [address] [place], [place] [id number]-[address] [place] [address] Pharmacist, Specialtygroup [address] [place] [address] Refill - Kisqali [28DS] C5/5 [facility] Comment on above: Refill - Kisqali [28DS] C5/5 Start: 11-26-2024 Adult BMI Screening Adult BMI Screening [facility] Start: 11-26-2024 Tobacco Screening Tobacco Screening [facility] Start: 11-25-2024 BP Controlled (<130/80) BP Controlled (<130/80) [facility] in Start: 11-25-2024 End: 11-25-2024 Patient encounter procedure 11/25/2024 8:20 AM EDT Office Visit Kidney Medicine [address] [place] [address] Minal Khanna DO [address] [place], [place] [phone] Elevated serum creatinine [R79.89] Kidney Medicine Comment on above: Elevated serum creatinine [R79.89] Start: 11-24-2024 End: 02-23-2025 CBC W Auto Differential panel - Blood COMPLETE BLOOD COUNT AND DIFFERENTIAL Lab Routine Invasive lobular carcinoma of breast in female (HCC) Expected: 11/24/2024, Expires: 02/23/2025 [facility] Work Phone: Comment on above: Expected: 11/24/2024, Expires: Start: 11-24-2024 End: 02-23-2025 Comprehensive metabolic 2000 panel - Serum or Plasma COMPREHENSIVE METABOLIC PANEL Lab Routine Invasive lobular carcinoma of breast in female (HCC) Expected: 11/24/2024, Expires: 02/23/2025 [facility] Comment on above: Expected: 11/24/2024, Expires: Start: 11-23-2024 End: 11-23-2024 Specialty Pharmacy 11/23/2024 7:15 AM EDT Specialty Pharmacy [facility] [address] [place], [place] [id number] [place] [address] Pharmacist, Specialtygroup [address] [place] [phone] Refill - Kisqali [28DS] C0407 [facility] Special[facility] Pharmacy Comment on above: Refill - Kisqali [28DS] C0407 Start: 11-16-2024 Tobacco Screening Tobacco Screening [facility] Start: 11-13-2024 Adult BMI Screening Adult BMI Screening [facility] Start: 2024 End: 2024 Patient encounter procedure 2024 10:00 AM EDT Office Visit [facility] [address] [place] [address] [place] [address] Rakesh Lamb DO [address] [facility], [facility] [address], [place] [address] [facility] Start: 10-26-2024 End: 10-26-2024 Specialty Pharmacy 10/26/2024 7:30 AM EST Specialty Pharmacy [facility] [address] [facility] [address] [place] [address] Pharmacist, [facility]tygroup [address] [place] [address] [place] [address] Refill - Kisqali [28DS] c010 [facility] Comment on above: Refill - Kisqali [28DS] c0310 Start: 10-15-2024 End: 10-15-2024 Patient encounter procedure 10/15/2024 9:00 AM EST Office Visit General Surgery [address] [facility] [place] [address] Sierra Atkins MD [address] [place], [place] [phone] New: cutaneous abscess of groin; ref by [...] 10-09-2024 Adult BMI Screening Adult BMI Screening [facility] Start: 10-09-2024 Tobacco Screening Tobacco Screening [facility] Start: 10-08-2024 End: 10-08-2024 Patient encounter procedure 10/08/2024 9:00 AM EST Office Visit General Surgery [address] [facility] [place] [address] Sierra Atkins MD [address] [place], [place] [phone] Cutaneous abscess of groin [L02.214] General Surgery Comment on above: Cutaneous abscess of groin [L02.214] Start: 10-02-2024 End: 10-02-2024 Patient encounter procedure Hematology Comment on above: BREAST CA zometa Start: 09-29-2024 End: 09-29-2024 Nursing evaluation of patient and report 09/29/2024 9:15 AM EST Nurse Visit Hematology/Oncology [address] [facility] [place] [address] Georgina Solano Nurse Adolfo [address] [facility] [facility] [place] [address] EKG per CC CHART Hematology/Oncology Comment on above: EKG per CC CHART Start: 09-21-2024 End: 09-21-2024 Specialty Pharmacy 09/21/2024 7:45 AM EST Specialty Pharmacy [email or web address] [address] [place] [address] Pharmacist, Specialtygroup [address] [place] [address] [place], [place] [phone] Refill - Kisqali [28ds] confirm cycle start date - next cycle ~ 09/29 [facility] Comment on above: Refill - Kisqali [28ds] confirm cycle st art date - next cycle ~ 09/29 Start: 09-18-2024 Adult BMI Screening Adult BMI Screening [facility] Start: 09-14-2024 End: 09-14-2024 Patient encounter procedure 09/14/2024 2:00 PM EST Office Visit Radiation Oncology [address] [facility] [place] [address] Josef Austin MD [address] [place] [address] [place] [address] 6 month rv Radiation Oncology Comment on above: 6 month rv Start: 09-10-2024 End: 09-10-2024 Patient encounter procedure 09/10/2024 10:15 AM EST Office Visit [facility] [address] [place] [address] [place] [address] Sunny Jenkins MD [address], [place] [address] [facility] Start: 09-08-2024 End: 09-08-2024 Patient encounter procedure 09/08/2024 8:20 AM EST Appointment Radiology [address] [place] [address] Encounter for screening for osteoporosis [Z13.820] Radiology Comment on above: Encounter for screening for osteoporosis [Z13.820] Start: 09-01-2024 End: 09-01-2024 Biopsy thyroid percutaneous core needle BIOPSY THYROID Multiple thyroid nodules 09/01/2024 2:40 PM EST [facility] Start: 09-01-2024 End: 09-01-2024 Admission to same day surgery center 09/01/2024 12:05 PM EST - 09/01/2024 1:05 PM EST Surgery [facility] [address] [place] [address] [place] [address] [place] [address] BIOPSY THYROID [facility] Comment on above: BIOPSY THYROID Start: 09-01-2024 End: 09-01-2024 Biopsy thyroid percutaneous core needle BIOPSY THYROID Multiple thyroid nodules 09/01/2024 12:05 PM EST [facility] Start: 09-01-2024 Subsequent hospital visit by physician 09/01/2024 12:05 PM EST Hospital Encounter [facility] [address] [place] [address] [place] [address] [place] [address] Multiple thyroid nodules [E04.2] [facility] Comment on above: Multiple thyroid nodules [E04.2] Start: 09-01-2024 End: 09-01-2024 Patient encounter procedure 09/01/2024 9:45 AM EST Visit (SP) Office Hematology [address] [place] [address] Mitch Neri MD [address] [place] [address] Schedule Office visit with Dr Culver in 3 weeks Hematology Comment on above: Schedule Office visit with Dr Culver in 3 wee tn Start: 08-26-2024 Advance Directive Discussion Advance Directive Discussion [facility] Start: 08-12-2024 End: 08-12-2024 Patient encounter procedure Endocrinolog y Comment on above: Biopsy ok per 06/23 [facility] Start: 08-07-2024 Adult BMI Screening Adult BMI Screening [facility] Start: 08-07-2024 Tobacco Screening Tobacco Screening [facility] Start: 08-06-2024 End: 11-05-2024 CBC W Auto Differential panel - Blood COMPLETE BLOOD COUNT AND DIFFERENTIAL Lab Routine Invasive lobular carcinoma of breast in female (HCC) Expected: 08/06/2024 (Approximate), Expires: 11/05/2024 [facility] Comment on above: Expected: 08/06/2024 (Approximate), Expi res: 11/05/2024 Start: 08-06-2024 End: 11-05-2024 Comprehensive metabolic 2000 panel - Serum or Plasma COMPREHENSIVE METABOLIC PANEL Lab Routine Invasive lobular carcinoma of breast in female (HCC) Expected: 08/06/2024 (Approximate), Expires: 11/05/2024 [facility] Comment on above: Expected: 08/06/2024 (Approximate), Expi res: 11/05/2024 Start: 08-06-2024 End: 08-06-2024 Patient encounter procedure 08/06/2024 9:45 AM EST Visit (SP) Office Hematology [address] [place] [address] Mitch Neri MD [address] [place] [address] [phone] Schedule Office visit with Dr Culver in 3 weeks Hematology Comment on above: Schedule Office visit with Dr Culver in 3 wee ks Start: 07-21-2024 End: 07-21-2024 Patient encounter procedure 07/21/2024 10:00 AM EST Office Visit OPHT Ophthalmology [address] [facility] [place] [address] Rakesh Palma, OD [address] [facility] [place] [address] 1 MONTH Ophthalmology Comment on above: 1 MONTH Start: 07-17-2024 End: 07-17-2024 Nursing evaluation of patient and report 07/17/2024 9:15 AM EST Nurse Visit Hematology/Oncology [address] [facility] [facility] [place] [address] Georgina Solano Nurse Adolfo [address] [facility] [place] [address] EKG wallace per staff message-[facility] patient Hematology/Oncology Comment on above: EKG wallace per staff message-[facility] patient Start: 07-16-2024 End: 07-16-2024 Patient encounter procedure 07/16/2024 1:45 PM EST Visit (SP) Office Hematology [address] [place] [address] Mitch Neri MD [address] [place] [address] MD exam and labs prior to the [...] female (HCC) Expected: 07/15/2024 (Approximate), Expires: 10/14/2024 [facility] Comment on above: Expected: 07/15/2024 (Approximate), Expi res: 10/14/2024 Start: 07-15-2024 End: 10-14-2024 Comprehensive metabolic 2000 panel - Serum or Plasma COMPREHENSIVE METABOLIC PANEL Lab Routine Invasive lobular carcinoma of breast in female (HCC) Expected: 07/15/2024 (Approximate), Expires: 10/14/2024 [facility] Comment on above: Expected: 07/15/2024 (Approximate), Expi res: 10/14/2024 Start: 07-15-2024 End: 07-15-2024 Patient encounter procedure 07/15/2024 2:00 PM EST Office Visit Endocrinology [address] [place] [address] Sandy Mcgregor MD, PhD [address] [place] [address] ok per 06/23 [facility] Comment on above: ok per 06/23 [facility] Start: 07-14-2024 End: 07-14-2024 Patient encounter procedure 07/14/2024 3:30 PM EST Office Visit OPHT Ophthalmology [address] [facility] [place] [address] Rakesh Palma, OD [address] [facility] [place] [address] 1 MONTH Ophthalmology Comment on above: 1 MONTH Start: 07-09-2024 End: 07-09-2024 Telemedicine consultation with patient 07/09/2024 7:45 AM EST [facility] [address] [place] [phone] Sunny Jenkins MD [address] [place], [place] [phone] [facility] Start: 06-23-2024 End: 06-23-2024 Patient encounter procedure 06/23/2024 10:30 AM EDT Office Visit OPHT Ophthalmology [address] [facility] [place] [address] Rakesh Palma, OD [address] [facility] [place] [address] 1 WEEK Ophthalmology Comment on above: 1 [...] insj io lens prosth w/o ecp [facility] [place] Start: 06-10-2024 End: 09-09-2024 Basic metabolic 2000 panel - Serum or Plasma BASIC METABOLIC PANEL Lab Routine Invasive lobular carcinoma of breast in female (HCC) Expected: 06/10/2024 (Approximate), Expires: 09/09/2024 [facility] Comment on above: Expected: 06/10/2024 (Approximate), Expi res: 09/09/2024 Start: 06-10-2024 End: 09-09-2024 CYSTATIN C CYSTATIN C Lab Routine Invasive lobular carcinoma of breast in female (HCC) Expected: 06/10/2024 (Approximate), Expires: 09/09/2024 [facility] Work Phone: Comment on above: Expected: 06/10/2024 (Approximate), Expi res: 09/09/2024 Start: 06-10-2024 End: 06-10-2024 Patient encounter procedure [facility] Start: 06-09-2024 End: 06-09-2024 Patient encounter procedure 06/09/2024 10:30 AM EDT Office Visit [facility]HT Ophthalmology [address] [place] [address] Rakesh Palma, OD [address] [place] [address] 1 WEEK Ophthalmology Comment on above: 1 WEEK Start: 06-03-2024 End: 06-03-2024 Patient encounter procedure 06/03/2024 1:30 PM EDT Visit (SP) Office Hematology [address] [facility] [place] [address] Mitch Neri MD [address] [place] [address] BREAST CA Hematology Comment on above: [...] lens prosth w/o ecp [facility] [place] Start: 05-21-2024 End: 05-21-2024 Follow-up encounter 05/21/2024 10:00 AM EDT Visit (SP) Office Hematology [address] [place] [address] Mitch Neri MD [address] [place], [place] [phone] Follow up with Dr. Neri in 4 weeks Hematology Comment on above: Follow up with Dr. Neri in 4 weeks Start: 05-19-2024 End: 05-19-2024 Patient encounter procedure Endocrinolog y Comment on above: thyroid nodule, 4mm Cataract: Left eye ( OS) then Right eye (OD) Start: 05-19-2024 End: 05-19-2024 Anesthesia consultation 05/19/2024 2:20 PM EDT PAT Pre Anesthesia [address] [place] [address] 1, Pacc [place] [address] [place] [address] Cataract: Left eye (OS) then Right eye (OD) Pre Anesthesia Comment on above: Cataract: Left eye (OS) then Right eye ( OD) Start: 05-19-2024 End: 08-18-2024 CBC W Auto Differential panel - Blood COMPLETE BLOOD COUNT AND DIFFERENTIAL Lab Routine Invasive lobular carcinoma of breast in female (HCC) Expected: 05/19/2024 (Approximate), Expires: 08/18/2024 [facility] Work Phone: Comment on above: Expected: 05/19/2024 (Approximate), Expi res: 08/18/2024 Start: 05-19-2024 End: 08-18-2024 Comprehensive metabolic 2000 panel - Serum or Plasma COMPREHENSIVE METABOLIC PANEL Lab Routine Invasive lobular carcinoma of breast in female (HCC) Expected: 05/19/2024 (Approximate), Expires: 08/18/2024 [facility] Comment on above: Expected: 05/19/2024 (Approximate), Expi res: 08/18/2024 Start: 05-15-2024 End: 05-15-2024 Patient encounter procedure 05/15/2024 12:00 PM EDT Education Hematology [address] [place] [address] Schedule chemo teach with Nia for Verzenio Hematology Comment on above: Schedule chemo teach with Nia for Verz bashir Start: 05-14-2024 Depression Screening Depression Screening [facility] Start: 05-14-2024 Fall Risk Screening Fall Risk Screening [facility] Start: 05-14-2024 Medicare Annual Wellness Visit Medicare Annual Wellness Visit [facility] Start: 05-05-2024 End: 05-05-2024 Patient encounter procedure 05/05/2024 3:00 PM EDT Office Visit Endocrinology [address] [place] [address] Sandy Mcgregor MD, PhD [address] [place] [address] thyroid nodule, 4mm Endocrinology Comment on above: thyroid nodule, 4mm Start: 04-30-2024 Screening for malignant neoplasm of breast Mammogram Screening [facility] Start: 04-26-2024 Covid-19 Vaccine () Covid-19 Vaccine () [facility] Start: 04-26-2024 Covid-19 Vaccine (4 - 2024-25 season) Covid-19 Vaccine ( season) [facility] Start: 04-26-2024 Influenza vaccination [facility] Start: 04-21-2024 End: 07-21-2024 25-hydroxyvitamin D3 [Mass/volume] in Serum or Plasma VITAMIN D 25 HYDROXY Lab Routine Invasive lobular carcinoma of breast in female (HCC) Body mass index (BMI) 50.0-59.9, adult (HCC) Expected: 04/21/2024 (Approximate), Expires: 07/21/2024 [facility] Comment on above: Expected: 04/21/2024 (Approximate), Expi res: 07/21/2024 Start: 04-21-2024 End: 07-21-2024 CBC W Auto Differential panel - Blood COMPLETE BLOOD COUNT AND DIFFERENTIAL Lab Routine Invasive lobular carcinoma of breast in female (HCC) Expected: 04/21/2024 (Approximate), Expires: 07/21/2024 [facility] Work Phone: Comment on above: Expected: 04/21/2024 (Approximate), Expi res: 07/21/2024 Start: 04-21-2024 End: 07-21-2024 Comprehensive metabolic 2000 panel - Serum or Plasma COMPREHENSIVE METABOLIC PANEL Lab Routine Invasive lobular carcinoma of breast in female (HCC) Expected: 04/21/2024 (Approximate), Expires: 07/21/2024 [facility] Comment on above: Expected: 04/21/2024 (Approximate), Expi res: 07/21/2024 Start: 04-21-2024 End: 04-21-2024 Patient encounter procedure 04/21/2024 10:00 AM EDT Infusion Center Hematology [address] [place] [address] [facility] H[facility] Comment on above: [facility] Start: 04-21-2024 End: 04-21-2024 Follow-up encounter 04/21/2024 9:45 AM EDT Visit (SP) Office Hematology [address] [place] [address] Mitch Neri MD [address] [place] [address] 7 week follow up Hematology Comment on above: 7 week follow up Start: 03-24-2024 End: 03-24-2024 Patient encounter procedure Radiation On cology Comment on above: RPM Lt CW Location: [facility] Start: 03-23-2024 End: 03-23-2024 Patient encounter procedure 03/23/2024 8:45 AM EDT Appointment Radiation Oncology [address] [place] [address] RPM Lt CW Radiation Oncology Comment on above: RPM Lt CW Start: 03-20-2024 End: 03-20-2024 Patient encounter procedure 03/20/2024 8:45 AM EDT Appointment Radiation Oncology [address] [place] [address] RPM Lt CW Radiation Oncology Comment on above: RPM Lt CW Start: 03-19-2024 End: 03-19-2024 Patient encounter procedure 03/19/2024 8:45 AM EDT Appointment Radiation Oncology [address] [place] [address] RPM Lt CW Radiation Oncology Comment on above: RPM Lt CW Start: 03-18-2024 End: 03-18-2024 Patient encounter procedure Radiation On cology Comment on above: RPM Lt CW Location: [facility] Start: 03-17-2024 End: 03-17-2024 Patient encounter procedure Radiation On cology Comment on above: RPM Lt CW Start: 03-16-2024 End: 03-16-2024 Patient encounter procedure 03/16/2024 8:45 AM EDT Appointment Radiation Oncology [address] [place] [address] RPM Lt CW Radiation Oncology Comment on above: RPM Lt CW Start: 03-13-2024 End: 03-13-2024 Patient encounter procedure 03/13/2024 8:45 AM EDT Appointment Radiation Oncology [address] [place] [address] RPM Lt CW Radiation Oncology Comment on above: RPM Lt CW Start: 03-12-2024 End: 03-12-2024 Patient encounter procedure 03/12/2024 8:45 AM EDT Appointment Radiation Oncology [address] [place] [address] RPM Lt CW Radiation Oncology Comment on above: RPM Lt CW Start: 03-11-2024 End: 03-11-2024 Patient encounter procedure Radiation On cology Comment on above: RPM Lt CW Location: [facility] Start: 03-10-2024 End: 03-10-2024 Patient encounter procedure 03/10/2024 8:45 AM EDT Appointment Radiation Oncology [address] [place] [address] RPM Lt CW Radiation Oncology Comment on above: RPM Lt CW Start: 03-09-2024 End: 03-09-2024 Patient encounter procedure 03/09/2024 8:45 AM EDT Appointment Radiation Oncology [address] [place] [address] RPM Lt CW Radiation Oncology Comment on above: RPM Lt CW Start: 03-06-2024 End: 03-06-2024 Patient encounter procedure 03/06/2024 8:45 AM EDT Appointment Radiation Oncology [address] [place] [address] RPM Lt CW Radiation Oncology Comment on above: RPM Lt CW Start: 03-05-2024 End: 03-05-2024 Patient encounter procedure 03/05/2024 8:45 AM EDT Appointment Radiation Oncology [address] [place] [address] RPM Lt CW Radiation Oncology Comment on above: RPM Lt CW Start: 03-04-2024 End: 03-04-2024 Patient encounter procedure 03/04/2024 8:45 AM EDT Appointment Radiation Oncology [address] [place] [address] RPM Lt CW Radiation Oncology Comment on [...] female (HCC) Expected: 03/03/2024 (Approximate), Expires: 06/02/2024 [facility] Work Phone: Comment on above: Expected: 03/03/2024 (Approximate), Expi res: 06/02/2024 Start: 03-03-2024 End: 06-02-2024 Comprehensive metabolic 2000 panel - Serum or Plasma [facility] Comment on above: Expected: 03/03/2024 (Approximate), Expi res: 06/02/2024 Start: 02-20-2024 End: 02-20-2024 Patient encounter procedure Radiation On cology Comment on above: NEW START LEFT BREAST RPM NEW START LEFT RPM B REAST-wants mornings Start: 02-12-2024 End: 02-12-2024 Patient encounter procedure [facility] - CT Imaging Start: 02-07-2024 End: 02-07-2024 Patient encounter procedure 02/07/2024 10:00 AM EDT Office Visit Radiation Oncology [address] [place] [address] [place] [address] Josef Austin MD [address] [place] [address] Dr francesco lott breast cancer Radiation Oncology Comment on above: Dr francesco lott breast cancer Start: 02-06-2024 End: 02-06-2024 Patient encounter procedure 02/06/2024 3:00 PM EDT Appointment [facility] Oncology - Radiation Oncology Former[facility] [place] [address] [facility] Oncology - Radiation Oncology Start: 01-28-2024 End: 01-27-2025 CT Chest WO and CT angiogram Coronary arteries W contrast IV CT angiogram chest Imaging Routine 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 Expected: 01/28/2024, Expires: 01/27/2025 [facility] Work Phone: Comment on above: Expected: 01/28/2024, Expires: Start: 01-28-2024 End: 01-27-2025 US.doppler Lower extremity vein - bilateral Vas venous duplex lwr bilateral Vascular Ultrasound Routine 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 Other acute pulmonary embolism without acute cor pulmonale (CMS-HCC) Expected: 01/28/2024, Expires: 01/27/2025 [facility] Comment on above: Expected: 01/28/2024, Expires: Start: 01-28-2024 End: 01-28-2024 Patient encounter procedure 01/28/2024 8:15 AM EDT Office Visit [facility] [address] [place] [address] [place] [address] Sunny Jenkins MD [address] [place] [address] [facility] Start: 01-21-2024 End: 01-21-2024 Follow-up encounter Hematology/Oncology Comment on above: 1 WEEK FOLLOW UP CHEMOTX TAXOL Start: 01-14-2024 End: 04-14-2024 CBC W Auto Differential panel - Blood [facility] Work Phone: Comment on above: Expected: 01/14/2024 (Approximate), Expi res: 04/14/2024 Expected: 01/14/2024 , Expires: 04/14/2024 Start: 01-14-2024 End: 04-14-2024 Comprehensive metabolic 2000 panel - Serum or Plasma COMPREHENSIVE METABOLIC PANEL Lab Routine Mass of right breast, unspecified quadrant Invasive lobular carcinoma of breast in female (HCC) Other abnormal and inconclusive findings on diagnostic imaging of breast Expected: 01/14/2024, Expires: 04/14/2024 [facility] Comment on above: Expected: 01/14/2024, Expires: Start: 01-14-2024 End: 01-14-2024 Follow-up encounter Hematology/Oncology Comment on above: 1 WEEK FOLLOW UP CHEMOTX TAXOL Start: 01-07-2024 End: 01-07-2024 Follow-up encounter Hematology/Oncology Comment on above: 2 WEEK FOLLOW UP CHEMOTX TAXOL Start: 12-31-2023 End: 12-31-2023 Follow-up encounter 12/31/2023 11:30 AM EDT Infusion Center Hematology/Oncology [address] [place] [address] [place] [address] 2 WEEK FOLLOW UP CHEMOTX TAXOL Hematology/Oncology Comment on above: 2 WEEK FOLLOW UP CHEMOTX TAXOL Start: 12-12-2023 End: 03-12-2024 CBC W Auto Differential panel - Blood COMPLETE BLOOD COUNT AND DIFFERENTIAL Lab Routine Invasive lobular carcinoma of breast in female (HCC) Jessica infection Expected: 12/12/2023, Expires: 03/12/2024 [facility] Work Phone: Comment on above: Expected: 12/12/2023, Expires: Start: 12-12-2023 End: 03-12-2024 Comprehensive metabolic 2000 panel - Serum or Plasma COMPREHENSIVE METABOLIC PANEL Lab Routine Invasive lobular carcinoma of breast in female (HCC) Jessica infection Expected: 12/12/2023, Expires: 03/12/2024 [facility] Work Phone: Comment on above: Expected: 12/12/2023, Expires: 4 Start: 12-10-2023 End: 03-10-2024 CBC W Auto Differential panel - Blood CBC + DIFF Lab Routine Invasive lobular carcinoma of breast in female (HCC) Expected: 12/10/2023, Expires: 03/10/2024 [facility] Work Phone: Comment on above: Expected: 12/10/2023, Expires: Start: 12-10-2023 End: 03-10-2024 Comprehensive metabolic 2000 panel - Serum or Plasma COMP METABOLIC PANEL Lab Routine Invasive lobular carcinoma of breast in female (HCC) Expected: 12/10/2023, Expires: 03/10/2024 [facility] Work Phone: Comment on above: Expected: 12/10/2023, Expires: Start: 12-03-2023 End: 03-03-2024 CBC W Auto Differential panel - Blood CBC + DIFF Lab Routine Invasive lobular carcinoma of breast in female (HCC) Expected: 12/03/2023 (Approximate), Expires: 03/03/2024 [facility] Work Phone: Comment on above: Expected: 12/03/2023 (Approximate), Expi res: 03/03/2024 Start: 12-03-2023 End: 03-03-2024 Comprehensive metabolic 2000 panel - Serum or Plasma COMP METABOLIC PANEL Lab Routine Invasive lobular carcinoma of breast in female (HCC) Expected: 12/03/2023 (Approximate), Expires: 03/03/2024 [facility] Work Phone: Comment on above: Expected: 12/03/2023 (Approximate), Expi res: 03/03/2024 Start: 11-28-2023 End: 11-13-2024 Basic metabolic 2000 panel - Serum or Plasma Basic Metabolic Panel Lab Routine Diuresis Expected: 11/28/2023 (Approximate), Expires: 11/13/2024 [facility] Work Phone: Comment on above: Expected: 11/28/2023 (Approximate), Expi res: 11/13/2024 Start: 11-14-2023 End: 11-14-2023 Patient encounter procedure 11/14/2023 3:00 PM EDT Office Visit [facility] [address] [place] [phone] Leo Gerard APRN-VENDOR MANAGEMENT CONSULTANT [address] [place] [phone] [facility] Start: 11-11-2023 End: 02-10-2024 CBC W Auto Differential panel - Blood CBC + DIFF Lab Routine Chest pain, unspecified type Invasive lobular carcinoma of breast in female (HCC) Generalized edema Expected: 11/11/2023, Expires: 02/10/2024 [facility] Work Phone: Comment on above: Expected: 11/11/2023, Expires: Start: 11-11-2023 End: 02-10-2024 Comprehensive metabolic 2000 panel - Serum or Plasma COMP METABOLIC PANEL Lab Routine Chest pain, unspecified type Invasive lobular carcinoma of breast in female (HCC) Generalized edema Expected: 11/11/2023, Expires: 02/10/2024 [facility] Work Phone: Comment on above: Expected: 11/11/2023, Expires: Start: 11-05-2023 End: 02-04-2024 CBC W Auto Differential panel - Blood [facility] Work Phone: Comment on above: Expected: 11/05/2023 (Approximate), Expi res: 02/04/2024 Start: 11-05-2023 End: 02-04-2024 Comprehensive metabolic 2000 panel - Serum or Plasma COMP METABOLIC PANEL Lab Routine Invasive lobular carcinoma of breast in female (HCC) Expected: 11/05/2023 (Approximate), Expires: 02/04/2024 [facility] Work Phone: Comment on above: Expected: 11/05/2023 (Approximate), Expi res: 02/04/2024 Start: 10-08-2023 End: 10-08-2023 Patient encounter procedure 10/08/2023 9:00 AM EST Appointment [facility] [address] [place] [id number] Arrived [facility] Comment on above: Arrived Start: 08-26-2023 Advance Directive Discussion Advance Directive Discussion [facility] Start: 08-26-2023 Behavioral Health Screening Behavioral Health Screening [facility] Start: 08-26-2023 Depression Assessment Depression Assessment [facility] Start: 04-26-2023 Covid-19 Vaccine () Covid-19 Vaccine () [facility] Start: 04-26-2023 Influenza vaccination [facility] Start: 02-28-2023 [facility] Start: 02-28-2023 [facility] Start: 02-08-2023 Mammography [facility] Start: 02-08-2023 Screening for malignant neoplasm of breast Mammogram Screening [facility] Start: 02-03-2023 COVID-19 VACCINE (4 - Booster for Romina series) COVID-19 VACCINE (4 - Booster for Romina series) [facility] Start: 08-26-2022 ADVANCE DIRECTIVE DISCUSSION ADVANCE DIRECTIVE DISCUSSION [facility] Start: 08-26-2022 DEPRESSION ASSESSMENT DEPRESSION ASSESSMENT [facility] Start: 04-26-2022 Influenza vaccination [facility] Start: 11-16-2021 COVID-19 VACCINE (3 - Booster for Romina series) COVID-19 VACCINE (3 - Booster for Romina series) [facility] Start: 09-13-2021 COVID-19 VACCINE (3 - Booster for Romina series) COVID-19 VACCINE (3 - Booster for Romina series) [facility] Start: 09-12-2021 Mammography MAMMOGRAM [facility] Start: 08-26-2021 ADVANCE DIRECTIVE DISCUSSION ADVANCE DIRECTIVE DISCUSSION [facility] Start: 07-23-2021 Colonoscopy COLONOSCOPY [facility] Start: 07-23-2021 COLORECTAL CANCER SCREENING COLORECTAL CANCER SCREENING [facility] Start: 04-02-2021 DIABETES SCREEN DIABETES SCREEN [facility] Start: 11-04-2019 BONE DENSITY BONE DENSITY [facility] Start: 11-04-2019 Bone Density Screening Bone Density Screening [facility] Start: 11-04-2019 PNEUMOVAX AGE 65 AND OVER WITH 5YR LOOKBACK (#1) PNEUMOVAX AGE 65 AND OVER WITH 5YR LOOKBACK (#1) [facility] Start: 11-04-2019 Screening for osteoporosis Bone Density Screening [facility] Start: 10-25-2019 Medicare Annual Wellness Visit Medicare Annual Wellness Visit [facility] Start: 2014 RSV Vaccine (1 - 1-dose 60+ series) RSV Vaccine (1 - 1-dose 60+ series) [facility] Start: 2014 RSV Vaccine (1 - Risk 60-74 years 1-dose series) RSV Vaccine (1 - Risk 60-74 years 1-dose series) [facility] Start: 01-10-2011 Adult depression screening assessment DEPRESSION SCREENING [facility] Start: 2004 SHINGRIX VACCINE (1 of 2) SHINGRIX VACCINE (1 of 2) [facility] Start: 11-04-1999 COLOGUARD (FIT-DNA) COLOGUARD (FIT-DNA) [facility] Start: 11-04-[address] COLONOGRAPHY [facility] Start: 11-04-1999 FECAL OCCULT BLOOD FECAL OCCULT BLOOD [facility] Start: 11-04-1999 LIPID SCREEN LIPID SCREEN [facility] Start: 11-04-1999 Screening for malignant neoplasm of colon [facility] Start: 11-04-1999 SIGMOIDOSCOPY SIGMOIDOSCOPY [facility] Start: 1994 Mammography MAMMOGRAM [facility] Start: 1994 Screening for malignant neoplasm of breast Mammogram Screening [facility] Start: 1984 Zoledronic acid therapy ALPHA-1 ANTITRYPSIN DEFICIENCY SCREENING [facility] Start: 1973 DTaP,Tdap and Td Vaccines (1 - Tdap) DTaP,Tdap and Td Vaccines (1 - Tdap) [facility] Start: 1973 [facility]album[facility] Start: 1972 Adult BMI Follow Up Plan Adult BMI Follow Up Plan [facility] Start: 1972 ANNUAL PCP TEAM CHRONIC DISEASE VISIT ANNUAL PCP TEAM CHRONIC DISEASE VISIT [facility] Start: 1972 Anxiety Screening Anxiety Screening [facility] Start: 1972 BP CONTROLLED (<130/80) BP CONTROLLED (<130/80) [facility] Start: 1972 Depression Screening Depression Screening [facility] Start: 1972 HEPATITIS C SCREENING HEPATITIS C SCREENING [facility] Start: 1972 Hepatitis C screening Hepatitis C Screening [facility] Start: 1972 SPIROMETRY SPIROMETRY [facility] Start: 1965 Screening for malignant neoplasm of cervix Cervical Cancer Screening [facility] Start: 1960 PNEUMOCOCCAL: 65+ (1 - PCV) PNEUMOCOCCAL: 65+ (1 - PCV) [facility] Start: 1954 Statin Use: Cardiovascular Statin Use: Cardiovascular [facility] Bacteria identified in Urine by Culture Urine Culture [facility] Basic metabolic 2000 panel - Serum or Plasma BASIC METABOLIC PANEL Lab Routine Invasive lobular carcinoma of breast in female (HCC) 07/14/2024 3:52 PM EST [facility] Work Phone: End: 04-02-2025 BD DXA TRABECULAR BONE SCORE (TBS) BD DXA TRABECULAR BONE SCORE (TBS) Radiology Routine Encounter for screening for osteoporosis Asymptomatic postmenopausal status 1 Occurrences starting 03/03/2024 until 04/02/2025 [facility] Comment on above: 1 Occurrences starting 03/03/2024 until 04/02/2025 End: 04-30-2025 CBC W Auto Differential panel - Blood COMPLETE BLOOD COUNT AND DIFFERENTIAL Lab Routine Invasive lobular carcinoma of breast in female (HCC) Once per week for 2 Occurrences starting 12/24/2023 until 12/23/2024 [facility] Work Phone: Comment on above: Once per week for 2 Occurrences starting 12/24/2023 until 12/23/2024 CBC W Auto Different ial panel - Blood COMPLETE BLOOD COUNT AND DIFFERENTIAL Lab Routine Invasive lobular carcinoma of breast in female (HCC) 05/05/2024 3:22 PM EDT [facility] Work Phone: Chronic hepatitis differentiation between hepatitis B and C virus panel - Serum or Plasma HEP REMOTE PANEL BL Lab Routine Invasive lobular carcinoma of breast in female (HCC) Elevated transaminase level 01/21/2024 1:46 PM EDT [facility] End: 12-23-2024 Comprehensive metabolic 2000 panel - Serum or Plasma COMPREHENSIVE METABOLIC PANEL Lab Routine Invasive lobular carcinoma of breast in female (HCC) Once per week for 2 Occurrences starting 12/24/2023 until 12/23/2024 [facility] Comment on above: Once per week for 2 Occurrences starting 12/24/2023 until 12/23/2024 Comprehensive metabo lic 2000 panel - Serum or Plasma COMPREHENSIVE METABOLIC PANEL Lab Routine Invasive lobular carcinoma of breast in female (HCC) 05/05/2024 3:22 PM EDT [facility] Comprehensive metabo lic 2000 panel - Serum or Plasma COMPREHENSIVE METABOLIC PANEL Lab Routine Invasive lobular carcinoma of breast in female (HCC) 09/11/2024 9:24 AM EST [facility] Work Phone: End: 12-04-2024 CTA Pulmonary arteries for pulmonary embolus W contrast IV CT CHEST W IVCON PE Radiology STAT Chest pain, unspecified type 1 Occurrences starting 11/05/2023 until 12/04/2024 [facility] Work Phone: Comment on above: 1 Occurrences starting 11/05/2023 until 12/04/2024 CYTOLOGY NON-COMPUTER SYSTEMS SUPPORT SPECIALIST CYTOLOGY NON-GY N Lab Routine Multiple thyroid nodules 07/15/2024 2:32 PM [facility] Work Phone: End: 04-02-2025 DXA Skeletal system.axial Views for bone density and vertebral fracture DXA-AXIAL SKELETON WITH VFA Radiology Routine Encounter for screening for osteoporosis Asymptomatic postmenopausal status 1 Occurrences starting 03/03/2024 until 04/02/2025 [facility] Comment on above: 1 Occurrences starting 03/03/2024 until 04/02/2025 End: 07-16-2025 ECG COMPLETE ECG COMPLETE ECG Routine Invasive lobular carcinoma of breast in female (HCC) 1 Occurrences starting 07/16/2024 until 07/16/2025 [facility] Work Phone: Comment on above: 1 Occurrences starting 07/16/2024 until 07/16/2025 ECG COMPLETE ECG COMPLETE ECG Routine Pre-op testing 07/17/2024 9:25 AM EST [facility] Work Phone: ECG COMPLETE ECG COMPLETE ECG 12/24/2024 9:05 AM EDT [facility] End: 12-08-2022 Echocardiography ECHO Cardiology Routine AF (paroxysmal atrial fibrillation) (HCC) 1 Occurrences starting 12/08/2021 until 12/08/2022 [facility] Work Phone: Comment on above: 1 Occurrences starting 12/08/2021 until 12/08/2022 End: 09-19-2023 EGD DIAGNOSTIC EGD DIAGNOSTIC Endoscopy Routine Gastroesophageal reflux disease, unspecified whether esophagitis present Hiatal hernia 1 Occurrences starting 09/19/2022 until 09/19/2023 [facility] Work Phone: Comment on above: 1 Occurrences starting 09/19/2022 until 09/19/2023 End: 02-15-2026 EGD DIAGNOSTIC EGD DIAGNOSTIC Endoscopy Routine Hiatal hernia Difficulty breathing 1 Occurrences starting 02/15/2025 until 02/15/2026 [facility] Work Phone: Comment on above: 1 Occurrences starting 02/15/2025 until 02/15/2026 Ferritin [Mass/volum e] in Serum or Plasma FERRITIN Lab Routine Invasive lobular carcinoma of breast in female (HCC) Elevated transaminase level 01/21/2024 1:46 PM EDT [facility] Guidance for percuta neous biopsy.core needle of Thyroid gland IMAGING GUIDED BIOPSY THYROID Radiology Routine Multiple thyroid nodules Ordered: 07/24/2024 [facility] Work Phone: Comment on above: Ordered: 07/24/2024 Hepatitis B virus co re Ab [Presence] in Serum HEPATITIS B CORE ANTIBODY TOTAL Lab Routine Invasive lobular carcinoma of breast in female (HCC) Elevated transaminase level 01/21/2024 1:46 PM EDT [facility] Hepatitis B virus guido rface Ab [Presence] in Serum HEPATITIS B SURFACE ANTIBODY Lab Routine Invasive lobular carcinoma of breast in female (HCC) Elevated transaminase level 01/21/2024 1:46 PM EDT [facility] Hepatitis B virus guido rface Ag [Presence] in Serum HEPATITIS B SURFACE ANTIGEN Lab Routine Invasive lobular carcinoma of breast in female (HCC) Elevated transaminase level 01/21/2024 1:46 PM EDT [facility] Hepatitis C virus Ab [Presence] in Serum HEPATITIS C ANTIBODY IA WITH CONFIRMATION Lab Routine Invasive lobular carcinoma of breast in female (HCC) Elevated transaminase level 01/21/2024 1:46 PM EDT [facility] IOL BIOMETRY W/ IOL CALC OU (BOTH EYES) IOL BIOMETRY W/ IOL CALC OU (BOTH EYES) OPHT Imaging Routine Combined forms of age-related cataract of both eyes 05/19/2024 2:38 PM EDT [facility] Work Phone: Iron and Iron bindin g capacity panel - Serum or Plasma IRON AND TIBC Lab Routine Invasive lobular carcinoma of breast in female (HCC) Elevated transaminase level 01/21/2024 1:46 PM EDT [facility] Work Phone: End: 05-16-2026 LUNG DIFFUSION CAPACITY (DLCO) LUNG DIFFUSION CAPACITY (DLCO) PFT Routine Dyspnea and respiratory abnormalities 1 Occurrences starting 04/16/2025 until 05/16/2026 [facility] Comment on above: 1 Occurrences starting 04/16/2025 until 05/16/2026 End: 05-16-2026 LUNG VOLUMES LUNG VOLUMES PFT Routine Dyspnea and respiratory abnormalities 1 Occurrences starting 04/16/2025 until 05/16/2026 [facility] Work Phone: Comment on above: 1 Occurrences starting 04/16/2025 until 05/16/2026 End: 02-12-2025 MG Breast - right Diagnostic for implant TINO DIAGNOSTIC RIGHT Radiology Routine Mass of right breast, unspecified quadrant Invasive lobular carcinoma of breast in female (HCC) Other abnormal and inconclusive findings on diagnostic imaging of breast 1 Occurrences starting 01/14/2024 until 02/12/2025 [facility] Work Phone: Comment on above: 1 Occurrences starting 01/14/2024 until 02/12/2025 Microalbumin/Creatin ine [Mass Ratio] in Urine ALBUMIN/CREATININE RATIO, URINE Lab Routine Stage 3 chronic kidney disease, unspecified whether stage 3a or 3b CKD (HCC) Primary hypertension 02/19/2025 9:01 AM EDT [facility] OUTSIDE VENDOR CARDI AC OUTPATIENT EXTENDED RHYTHM RECORDING (WITHOUT TELEMETRY) OUTSIDE VENDOR CARDIAC OUTPATIENT EXTENDED RHYTHM RECORDING (WITHOUT TELEMETRY) Holter Routine AF (paroxysmal atrial fibrillation) (HCC) Ordered: 12/08/2021 [facility] Work Phone: Comment on above: Ordered: 12/08/2021 Patient Education [facility] Need le Biopsy, Thyroid [facility] Work Phone: Protein/Creatinine [ Mass Ratio] in Urine PROTEIN / CREATININE RATIO Lab Routine Stage 3 chronic kidney disease, unspecified whether stage 3a or 3b CKD (HCC) Primary hypertension 02/19/2025 9:01 AM EDT [facility] End: 09-19-2023 Screening colonoscopy COLONOSCOPY SCREENING Endoscopy Routine Screening for colon cancer 1 Occurrences starting 09/19/2022 until 09/19/2023 [facility] Work Phone: Comment on above: 1 Occurrences starting 09/19/2022 until 09/19/2023 Thyrotropin [Units/v olume] in Serum or Plasma THYROID STIMULATING HORMONE Lab Routine Multiple thyroid nodules 06/01/2024 1:56 PM EDT [facility] Work Phone: Tissue Pathology bio psy report [facility] Work Phone: Comment on above: Release Upon Ordering for 1 Occurrences starting 02/23/2025, 1 completed UA DIP, URINE (POC) UA DIP, URIN E (POC) Lab Routine Ordered: 02/18/2025 [facility] Work Phone: Comment on above: Ordered: 02/18/2025 End: 08-15-2024 US AXILLA ONLY LEFT US AXILLA ONLY LEFT Radiology Routine Malignant neoplasm of left female breast, unspecified estrogen receptor status, unspecified site of breast (HCC) 1 Occurrences starting 07/17/2023 until 08/15/2024 [facility] Work Phone: Comment on above: 1 Occurrences starting 07/17/2023 until 08/15/2024 End: 02-12-2025 US Breast - right limited US BREAST LTD RIGHT Radiology Routine Mass of right breast, unspecified quadrant Invasive lobular carcinoma of breast in female (HCC) Other abnormal and inconclusive findings on diagnostic imaging of breast 1 Occurrences starting 01/14/2024 until 02/12/2025 [facility] Comment on above: 1 Occurrences starting 01/14/2024 until 02/12/2025 US HIP-INJECTION LT (POC) KELLY USE ONLY US HIP-INJECTION LT (POC) KELLY USE ONLY Imaging Procedures Routine Primary osteoarthritis of left hip Ordered: 09/06/2022 [facility] Work Phone: Comment on above: Ordered: 09/06/2022 End: 03-21-2026 US Kidney - bilateral and Urinary bladder US KIDNEY/BLADDER Radiology Routine Stage 3 chronic kidney disease, unspecified whether stage 3a or 3b CKD (HCC) 1 Occurrences starting 02/19/2025 until 03/21/2026 [facility] Comment on above: 1 Occurrences starting 02/19/2025 until 03/21/2026 Us soft tissue head & neck real time imge docm US THYROID/PARATHYROID Radiology Routine Thyroid nodule 03/29/2022 4:34 PM EDT [facility] Work Phone: End: 06-04-2025 US Thyroid gland US THYROID/PARATHYROID Radiology Routine Multiple thyroid nodules 1 Occurrences starting 05/05/2024 until 06/04/2025 [facility] Comment on above: 1 Occurrences starting 05/05/2024 until 06/04/2025 US Thyroid gland US THYROID/PARA THYROID Radiology Routine Multiple thyroid nodules 06/18/2024 11:24 AM EDT [facility] Work Phone: End: 03-17-2026 XR Esophagus Views W contrast PO XR ESOPHAGRAM Radiology Routine Hiatal hernia Difficulty breathing 1 Occurrences starting 02/15/2025 until 03/17/2026 [facility] Comment on above: 1 Occurrences starting 02/15/2025 until 03/17/2026 [facility] Immunizations Immunization Date Immunization Notes Care Provider Fa cili 12-09-2022 COVID-19, mRNA, LNP- S, PF, 100mcg/0.5mL Dose [facility] Work Phone: [facility] 04-28-2022 zoster vaccine recombinant [facility] Work Phone: [facility] 12-31-2021 pneumococcal polysaccharide vaccine, 23 valent [facility] Work Phone: [facility] 02-14-2021 pneumococcal conjuga te vaccine, 13 valent [facility] Work Phone: [facility] 02-14-2021 zoster vaccine recombinant [facility] Work Phone: [facility] 08-04-2016 pneumococcal conjuga te vaccine, 13 valent [facility] Work Phone: [facility] Payers Date Payer Category Payer Self-pay [id number] 2021 Managed Care Other (unspecified) [facility] [id number] 2021 Private Health Insurance [employer] [place] [id number] 2021 Unknown [employer] RADHA [place] [facility] MEDIC[facility] SUPPLEMENT [id number] 2021-Present [phone] [id number] [place] [address] Indemnity [id number]. [id number] 2021 Unknown [id number]. 1.13.159.2. [id number] 2021 Unknown [id number] 2019 Medicare MEDICARE MEDICAR E A AND B [id number] 2019-Present [phone] [place] [address] Medicare [id number] 2019 Medicare [id number]. 1.13.159.2. [id number] 1959 Medicare [id number] 2.16.840.1.097743.19 1959 Unknown [id number] 2.16.840.1.625210.19 1954 Unknown [id number] 2.16.840.1.758317.3.579.2. 356 1954 Unknown [id number] 2.16.840.1.592960.3.579.2. 593 1954 Unknown [id number] 2.16.840.1.397439.3.579.2. 593 1954 Unknown [id number] 2.16.840.1.487213.3.579.2. 1286 1954 Unknown [id number] 2.16.840.1.340723.3.579.2. 1285 1954 Unknown [id number] 2.16.840.1.937325.3.579.2. 1286 1954 Unknown [id number] 2.16.840.1.792415.3.579.2. 1286 1954 Unknown [id number] 2.16.840.1.359035.3.579.2. 1285 1954 Unknown [id number] 2.16.840.1.579646.3.579.2. 128 1954 Unknown [id number] 2.16.840.1.017219.3.579.2. 1286 1954 Unknown [id number] 2.16.840.1.160177.3.579.2. 128 1954 Unknown [id number] 2.16.840.1.829786.3.579.2. 128 1954 Unknown [id number] 2.16.840.1.996660.3.579.2. 128 1954 Unknown [id number] 2.16.840.1.041387.3.579.2. 128 1954 Unknown [id number] 2.16.840.1.668416.3.579.2. 1259 1954 Unknown [id number] 2.16.840.1.144223.3.579.2. 1286 1954 Unknown [id number] 2.16.840.1.700311.3.579.2. 1286 1954 Unknown [id number] 2.16.840.1.549737.3.579.2. 1286 Unknown [id number] Unknown Hardik BC/BS [id number] Unknown [id number] 2.16.840.1.097792.3.579.2. 531 Unknown [id number] 2.16840.1.170927.3.579.2. 531 Unknown [id number] 2.16.840.1.975607.3.579.2. 531 Social History Date Type Detail Facility Tobacco smoking stat [facility] Unknown if ever smoked [facility] Start: 1955 Sex Assigned At Female F [facility] Start: 04-03-2022 End: 04-02-2023 Tobacco smoking status NHIS Never smoked tobacco [facility] Start: 12-08-2021 End: 04-16-2025 Alcohol intake Current drinker of alcohol (finding) [facility] Start: 03-19-2018 History SDOH Alcohol Comment socially- couple times per year [facility] Start: 1955 Sex Assigned At Not on file C [facility] Start: 11-28-2021 End: 04-03-2022 Exposure to SARS-CoV-2 (event) Not sure [facility] Start: 01-29-2023 End: 07-12-2023 Sex Assigned At [facility] Start: 03-14-2022 History SDOH Financial 5 [facility] Start: 03-14-2022 History SDOH Food Worry 1 [facility] Start: 03-14-2022 History SDOH Transpo rt Med 2 [facility] Start: 04-03-2022 End: 04-02-2023 Tobacco use and exposure Smokeless tobacco non-user [facility] Work Phone: Start: 01-29-2023 End: 07-12-2023 History of Social function [facility] Start: 07-27-2012 How hard is it for y ou to pay for the very basics like food, housing, medical care, and heating Not hard at all [facility] (I/We) worried mignon er (my/our) food would run out before (I/we) got money to buy more. Never true [facility] In the past 12 month s, was there a time when you were not able to pay the mortgage or rent on time? No [facility] Start: 04-02-2023 Alcohol Comment rare [facility] Start: 03-31-2015 End: 11-20-2024 Sex Female (finding) [facility] Start: 08-14-2024 Sexual orientation Heterosexual (fin sameer) [facility] Start: 04-05-2025 Alcoholic beverage intake Ex-drinker (finding) [facility] Medical Equipment Procedure Code Equipment Code Equipment Origin al Text Equipment Identifier Dates Cement Simplex P Bone Radiopaque Full Dose - [id number] Start: 03-31-2018 Cement Simplex P Bone Radiopaque Full Dose - [id number] Start: 03-31-2018 Cement Simplex P Bone Radiopaque Full Dose - [id number] Start: 03-31-2018 Stem Triathlon 1 2mm Cocr 50mm Femoral Cemented Total Stabilized Knee - [id number] Start: 03-31-2018 Insert Triathlon 4 X3 9mm Tibial Posterior Stabilize Knee - [id number] Start: 03-31-2018 Component Triath lito 33mm X3 9mm Patellar Symmetric Knee Superior - [id number] Start: 03-31-2018 Insert Triathlon 4 X3 11mm Tibial Bearing Posterior Stabilize Knee - [id number] Start: 03-31-2018 Component Triath lito 33mm X3 9mm Patellar Symmetric Knee Superior - [id number] Start: 03-31-2018 Component Triath lito 4 Femoral Cemented Posterior Stabilize Knee Right - [id number] Start: 03-31-2018 Component Triath lito 4 Femoral Cemented Posterior Stabilize Knee Left - [id number] Start: 03-31-2018 Baseplate Triath lito 4 [place] Cocr Tibial Total Stabilize Cemented Knee - [id number] Start: 03-31-2018 Baseplate Triath lito 4 [place] Cocr Tibial Total Stabilize Cemented Knee - [id number] Start: 03-31-2018 Screw Lcp 6.5mm 8mm Partial Thread Stainless Steel 45mm 32mm Bone Large - [id number] Start: 03-31-2018 Washer Lcp 13mm 6.6mm Stainless Steel Orthopedic 4.5-7.3mm Screw Nonsterile - [id number] Start: 03-31-2018 Screw Lcp 6.5mm 8mm Full Thread Stainless Steel 35mm Bone Large Hexagonal - [id number] Start: 03-31-2018 Cca0t0.165 Rosa on [facility] - [id number] Start: 06-02-2024 Cca0t0.130 Rosa on [facility] - [id number] Start: 06-17-2024 Goals Date Patient Goal Desired Activity /State Functional Status Date Assessment Result Facility 09-05-2023 Are you deaf, or do you have serious difficulty hearing No 09/05/2023 8:47 AM Cassia Sandoval RN No [facility] 09-05-2023 Are you blind, or do you have serious difficulty seeing, even when wearing glasses No 09/05/2023 8:47 AM Cassia Sandoval RN No [facility] 09-05-2023 Do you have serious difficulty walking or climbing stairs No 09/05/2023 8:47 AM Cassia Sandoval RN No [facility] 09-05-2023 Do you have difficul ty dressing or bathing No 09/05/2023 8:47 AM Cassia Sandoval RN No [facility] 09-05-2023 Because of a physica l, mental, or emotional condition, do you have difficulty doing errands alone such as visiting a physician's office or shopping No 09/05/2023 8:47 AM Cassia Sandoval RN No [facility] Mental Status Date Assessment Result Facility 09-05-2023 Because of a physica l, mental, or emotional condition, do you have serious difficulty concentrating, remembering, or making decisions No 09/05/2023 8:47 AM Cassia Sandoval RN No [facility] Clinical Notes 06-28-2021 to 04-26-2025 Telephone Encounter - Rosalie Lopez MD - 04/26/2025 10:03 AM EDTTelephone Encounter - Rosalie Lopez MD - 04/26/2025 10:03 AM EDTPatient Boom Mccain MD - 04/16/2025 8:00 AM EDT Note Date & Type Note Facility 04-26-2025 Telephone encounter Note Opened in error. [facility] Work Phone: 04-26-2025 Miscellaneous Notes Opened in error. documented in this encounter [facility] 04-16-2025 Instructions Boom Tim MD - 04/16/2025 8:10 AM EDT Today we discussed your breathing and your breathing test today, we will check a couple more in depth breathing tests and have you come back in 1 month. documented in this encounter [facility] 04-16-2025 History and physical note Images from the original note were not included. . [facility] [place] Note Ms. Caputo is a 69 year old female who presents to the [facility] [place]. Consultation requested by Dr. Gómez Baker for [...] eval of difficulty breathing . Recording using Vigster software for draft documentation of the visit was discussed with the patient/authorized agricultural sales representative; all questions welcomed and answered. Patient/authorized agricultural sales representative agreed to proceed Minal reports [...] personally reviewed by me [facility] (in addition to that noted [...] year old female who presents to the [facility] [place] for evaluation of dyspnea. 1. Dyspnea and [...] due to hip pathology. - Follow-up with HOT IRON WORKER after completion of full PFTs to review results and reassess. - Will communicate findings and assessment to Dr. Baker. 4. Class 3 severe obesity with body mass index (BMI) of 45.0 to 49.9 in adult, unspecified obesity type, unspecified whether serious comorbidity present ([facility]) (E66.363) Obesity is a significant barrier to hip [...] which included preparing to see the patient, mhgm-xi-hars patient care, completing clinical documentation, obtaining and/or [...] couple times per year Drug use: Never [facility] 04-16-2025 History and physical note Images from the original note were not included. . [facility] [place] Note Ms. Caputo is a 69 year old female who presents to the [facility] [place]. Consultation requested by Dr. Gómez Baker for [...] eval of difficulty breathing . Recording using Vigster software for draft documentation of the visit was discussed with the patient/authorized agricultural sales representative; all questions welcomed and answered. Patient/authorized agricultural sales representative agreed to proceed Minal reports [...] personally reviewed by me Data [facility] (in addition to that noted [...] year old female who presents to the [facility] [place] for evaluation of dyspnea. 1. Dyspnea and [...] due to hip pathology. - Follow-up with HOT IRON WORKER after completion of full PFTs to [...] which included preparing to see the patient, oqez-vk-swml patient care, completing clinical documentation, obtaining and/or [...] Drug use: Never documented in this encounter [facility] 04-13-2025 Instructions Cinthia Tim LPN - 04/13/2025 3:19 PM EDT Schedule labs prior to Virtual visit with DR Neri 2 months Schedule proliainjection in [place] next day documented in this encounter [facility] 04-13-[address] [facility] 04-13-2025 History of Presen t illness Narrative PATIENT NAME: Minal Caputo [facility] NO.: [id number] ATTENDING PHYSICIAN: Mitch Neri MD DATE OF [...] cm, LVI present, Margins Negative, ER 80%, DC 5% and Her-2 IHC-0 Germline testing 07/2023: [...] grade 1 invasive lobular carcinoma ER 80%, DC 5% and HER2/akash with IHC 0. A [...] elected to transfer her care to the [facility] and underwent a L breast [...] Range Status 03/30/2025 4.9 % Final Abs Garza Date Value Ref Range Status 03/30/2025 0.18 [...] Examined (sentinel and non-sentinel) 4 Number of [place] Nodes Examined 4 pTNM CLASSIFICATION (AJCC 8th [...] invasive lobular carcinoma, grade 2, ER 80%, DC 5% and HER2/akash negative, IHC 0, cancer [...] Verzenio was started later due to patient personnel assistant program in late April 2024 at [...] do not hesitate to contact me at [phone]. Mitch Neri MD Hematology/Medical Oncology [facility] I spent a total of 30 minutes on the date of the service which included preparing to see the patient, gdjo-qw-velr patient care, completing clinical documentation, obtaining and/or reviewing separately obtained history, performing a medically appropriate examination, and counseling and educating the patient/family/caregiver. CC: Sunny Jenkins MD documented in this encounter [facility] 04-12-2025 History of Presen t illness [...] been reviewed prior to dispensing the medication. Director Clinical Applications Assessment Patient confirmed: Yes Med/dose confirmed: Yes Supplies needed: No supplies needed Missed doses: No Estimated days supply on hand: 0 Next cycle/dose due: 04/19/25 Copay amount: 0 Delivery method: FedEx Signature required: Waived on patient request Delivery address: [address] [place] [address] Delivery date: 04/15/25 Questions or concerns for [...] facility-administered medications on file prior to visit. [facility] SPECIALTY CLINICAL ASSESSMENT - HEMATOLOGY ONCOLOGY V6: Assessment to use: Refill Date of influenza vaccination reminder: 08/28/2024 Date of most recent vaccination assessment: 08/28/2024 Treatment Plan Information: Diagnosis: T3, N3, M0, invasive lobular carcinoma, grade 2, ER 80%, DC 5% and HER2/akash negative, IHC 0 Previous [...] years Citlali Negrete documented in this encounter [facility] 04-12-[address] [facility] 04-12-2025 Miscellaneous Notes Patient was seen on [...] she verbalized understanding documented in this encounter [facility] 04-12-2025 Telephone encounter Note Patient was seen on 04/05/2025 for sinusitis and stated she finished antibiotic and would like another antibiotic due still not feeling better. Please advise. [facility] 04-12-2025 Telephone encounter Note Prescription for cefdinir 300 mg 1 capsule twice daily for 7 days additionally sent into pharmacy to continue to take medication to help with symptoms. Please let patient know. Thank you [facility] 04-12-2025 Telephone encounter Note Spoke with patient, she verbalized understanding [facility] 04-05-2025 History of Presen t illness Narrative Images from the original note were not included. [facility] [address] [place] [id number] Patient: Minal Caputo Date of : 1955 [...] able to have EDG Saturday. Maximum temperature: [place] low grade fever. Associated symptoms include congestion, [...] tenderness or frontal sinus tenderness. Mouth/Throat: Lips: [place]. No lesions. Comments: Due to positioning and [...] Date Allergic Arthritis Back pain Breast cancer ([facility]) 06/26/2023 Cataract COPD (chronic obstructive pulmonary disease) ([facility]) GERD (gastroesophageal reflux disease) Heart murmur History of blood clots HTN (hypertension) Hyperlipidemia Kidney stones Obesity Pneumonia Primary invasive malignant neoplasm of female breast, left ([facility]) 06/28/2023 Recurrent UTI Rheumatoid arthritis ([facility]) Scoliosis Shingles Varicella Visual impairment glasses Past [...] ENT for further evaluation or referral to mobile home installer to see if certain allergens causing recurrent [...] 04/05/25 1:42 PM documented in this encounter [facility] 04-05-2025 Instructions Rakesh Lamb DO - 04/05/2025 1:00 PM EDT Symptoms consistent with acute sinusitis. Start on antibiotic Cefdinir 300 mg 1 capsule twice daily for 7 days. documented in this encounter [facility] 04-05-[address] [facility] 04-05-2025 History of Presen t illness Narrative Pt came in for Activase, however port gave great blood return immediately and flushed with ease. No need for activase at this time. Halina Hunter RN documented in this encounter [facility] 04-01-2025 Note HNO ID: [id number] Author: HANSA FRANZ RDMS, RVT Service: Radiology Author Type: Quality Assurance Practice Manager Type: Progress Notes Filed: 04/01/2025 09:24 Note [...] PATIENT PRESENTS WITH AN IMPLANTABLE OR ATTACHED FIBERGLASS FABRICATOR: No RADIOLOGY DEPARTMENT: Ultrasound PERIPHERAL IV DATA: Not applicable SIGNED BY: Hansa Franz RDMS, RVT April 01, 2025 9:24 AM [facility] 03-26-2025 Telephone encounter Note Called and spoke with Ashkan to have fitting-was evaluated by plastic surgery 03/05/25. She will fax orders to Dr Neri's office. [facility] 03-26-2025 Miscellaneous Notes Called and spoke with Ashkan to have fitting-was evaluated by plastic surgery 03/05/25. She will fax orders to Dr Neri's office. Adelaide from [facility], [facility] in [place] calling Patient is there now for a fitting Will need permission to fit her today so she can go home with her items She came without a prescription Will also fax form to office now Please call Adelaide GONSALEZ so they can do the fitting now Adelaide can be reached at: [phone], ok to leave a message documented in this encounter [facility] 03-26-2025 Telephone encounter Note Adelaide from [facility], [facility] in [place] calling Patient is there now for a fitting Will need permission to fit her today so she can go home with her items She came without a prescription Will also fax form to office now Please call Adelaide GONSALEZ so they can do the fitting now Adelaide can be reached at: [phone], ok to leave a message [facility] 03-19-2025 Instructions Hellen Matias APRN.INVESTMENT OFFICER - 03/19/2025 10:43 AM EDT PATIENT PREOPERATIVE INSTRUCTIONS Rita Barbosa DO has scheduled you for your procedure at this surgery center: [facility]: [phone] --[id number] [place] [address]. Please enter through the entrance closest to [...] Diabetic:No If you are currently using a qipi-odc-heug injectable or oral medication for diabetes or [...] please check with your dialysis center or child specialist to see if any adjustments need to [...] Procedures: - YOU MUST HAVE A RESPONSIBLE OUTSIDE SALES ADVERTISING EXECUTIVE TAKE YOU HOME. A HARDNESS INSPECTOR OR DIRECTOR OF REHABILITATION AND WELLNESS CANNOT BE MADE A RESPONSIBLE OUTSIDE SALES ADVERTISING EXECUTIVE. - We recommend that a responsible person [...] Advance Directive, please fax a copy to [phone] or email to for it to be [...] into your chart that day. Hellen Matias APRN.INVESTMENT OFFICER documented in this encounter [facility] 03-19-2025 History and physical note PREANESTHESIA CONSULT CLINIC TELEHEALTH VISIT Patient has been identified by name and date of : Yes This is a virtual visit using [employer] Zoom Video Visit. It require patient-provider interaction for [...] visit. Either the patient or their legal agricultural sales representative has been informed of the [...] 48.8 Neuro: No history of TIA's, stroke, INVESTMENT OFFICER tumor, impaired sensorium, hemiplegia, paraplegia or quadraplegia. No neurological symptoms or problems. Respiratory: COPD does not use Inhalers Cardiovascular: Positive for: DVT/PE, HLD, Hypertension, H/O A-Fib in the past H/O Palpitations in the past PE in 2023 GI: Positive for GERD takes Nexium H/O Diverticulitis : No history of dysuria, frequency or incontinence,, stones or chronic kidney disease, CKD COMPUTER SYSTEMS SUPPORT SPECIALIST: Negative for abnormal vaginal bleeding, abnormal vaginal [...] Most recent labs Most recent EKG: in epic of 12/24/24 Procedure Date : Dec 24 2024 09:05:05 Edit Date : Dec 24 2024 09:10:11 Diagnosis: SUSPECT ARM LEAD REVERSAL, PLEASE REPEAT SINUS RHYTHM WITH 1ST DEGREE AV BLOCK LATERAL MYOCARDIAL INFARCTION , AGE UNDETERMINED ABNORMAL ECG Impression/Recommendations ASSESSMENT: COPD (chronic obstructive pulmonary disease) ([facility]) Assessment: states was told by booster plant operator that she had ALUMINUM BOATS ASSEMBLER but another told her she did not have it Does not use use inhaler Currently stable Disorder of mitral valve Assessment: trace mitral regurgitation per 08/2023 ECHO (+) systolic cardiac murmur GERD (gastroesophageal reflux disease) Assessment: trace mitral regurgitation per 08/2023 ECHO (+) systolic cardiac murmur Mixed hyperlipidemia Assessment: takes Lipitor,stable Morbid obesity ([facility]) Assessment: BMI 48.8 Palpitations Assessment: evaluated for possible atrial fibrillation on metoprolol Follows with Dr. John Dc ( Cardiology,) currently stable Primary hypertension Assessment: takes Metoprolol,Losartan last BP in epic of 02/23/25 156/70 Pulmonary embolism ([facility]) Assessment: PE 11/05/2023 was on Eliquis for 3 months RA (rheumatoid arthritis) ([facility]) Assessment: Follows with Dr. Celia Lewis Stage 3a chronic kidney disease ([facility]) Assessment: BUN Date Value Ref Range Status [...] included preparing to see the patient and iyhl-pd-[id number] patient care This is a virtual visit. It required patient-provider interaction for the medical decision making as documented above. SIGNATURE: Hellen Matias APRN.CNS PATIENT NAME: Minal Caputo DATE: 03/19/25 TIME: 10:42 AM PAGER/CONTACT #: T [facility] 03-19-2025 History and physical note PREANESTHESIA CONSULT CLINIC TELEHEALTH VISIT Patient has been identified by name and date of : Yes This is a virtual visit using [employer] Zoom Video Visit. It require patient-provider interaction for [...] visit. Either the patient or their legal agricultural sales representative has been informed of the [...] 48.8 Neuro: No history of TIA's, stroke, INVESTMENT OFFICER tumor, impaired sensorium, hemiplegia, paraplegia or quadraplegia. No neurological symptoms or problems. Respiratory: COPD does not use Inhalers Cardiovascular: Positive for: DVT/PE, HLD, Hypertension, H/O A-Fib in the past H/O Palpitations in the past PE in 2023 GI: Positive for GERD takes Nexium H/O Diverticulitis : No history of dysuria, frequency or incontinence,, stones or chronic kidney disease, CKD COMPUTER SYSTEMS SUPPORT SPECIALIST: Negative for abnormal vaginal bleeding, abnormal vaginal [...] Most recent labs Most recent EKG: in [facility] of 12/24/24 Procedure Date : Dec 24 2024 09:05:05 Edit Date : Dec 24 2024 09:10:11 Diagnosis: SUSPECT ARM LEAD REVERSAL, PLEASE REPEAT SINUS RHYTHM WITH 1ST DEGREE AV BLOCK LATERAL MYOCARDIAL INFARCTION , AGE UNDETERMINED ABNORMAL ECG Impression/Recommendations ASSESSMENT: COPD (chronic obstructive pulmonary disease) ([facility]) Assessment: states was told by booster plant operator that she had ALUMINUM BOATS ASSEMBLER but another told her she did not have it Does not use use inhaler Currently stable Disorder of mitral valve Assessment: trace mitral regurgitation per 08/2023 ECHO (+) systolic cardiac murmur GERD (gastroesophageal reflux disease) Assessment: trace mitral regurgitation per 08/2023 ECHO (+) systolic cardiac murmur Mixed hyperlipidemia Assessment: takes Lipitor,stable Morbid obesity ([facility]) Assessment: BMI 48.8 Palpitations Assessment: evaluated for possible atrial fibrillation on metoprolol Follows with Dr. John Dc ( Cardiology,) currently stable Primary hypertension Assessment: takes Metoprolol,Losartan last BP in [facility] of 02/23/25 156/70 Pulmonary embolism ([facility]) Assessment: PE 11/05/2023 was on Eliquis for 3 months RA (rheumatoid arthritis) ([facility]) Assessment: Follows with Dr. Celia Lewis Stage 3a chronic kidney disease ([facility]) Assessment: BUN Date Value Ref Range Status [...] included preparing to see the patient and [id number]-[id number] patient care This is a virtual visit. It required patient-provider interaction for the medical decision making as documented above. SIGNATURE: Hellen Matias APRN.INVESTMENT OFFICER PATIENT NAME: Minal Caputo DATE: 03/19/25 TIME: 10:42 AM PAGER/CONTACT #: documented in this encounter [facility] 03-15-2025 History of Presen t illness [...] been reviewed prior to dispensing the medication. Director Clinical Applications Assessment Patient confirmed: Yes Med/dose confirmed: Yes Supplies needed: No supplies needed Missed doses: No Estimated days supply on hand: 0 Next cycle/dose due: 03/22/25 Copay amount: 0 Delivery method: FedEx Signature required: Waived on patient request Delivery address: [address] [place] [address] Delivery date: 03/19/25 Questions or concerns for [...] facility-administered medications on file prior to visit. [facility] SPECIALTY CLINICAL ASSESSMENT - HEMATOLOGY ONCOLOGY V6: Assessment to use: Refill Date of influenza vaccination reminder: 08/28/2024 Date of most recent vaccination assessment: 08/28/2024 Treatment Plan Information: Diagnosis: T3, N3, M0, invasive lobular carcinoma, grade 2, ER 80%, DC 5% and HER2/akash negative, IHC 0 Previous [...] years Shanel Oropeza documented in this encounter [facility] 03-15-[address] [facility] 03-05-[address] [facility] 03-05-2025 History of Presen t illness Narrative Minal is here for f/u, path reviewed with her, suture line intact, sutures removed, reviewed postop wound hygiene; f/u with me as needed. (L72.0) Inclusion cyst (primary encounter diagnosis) Andres Mann MD documented in this encounter [facility] 03-04-2025 Telephone encounter Note Spoke to Minal, appointment rescheduled for tomorrow [facility] 03-04-2025 Miscellaneous Notes Spoke to Minal, appointment rescheduled for tomorrow Minal is calling Andres Mann MD today to request to reschedule her post op appt for today. Please call patient to reschedule Patient has been identified by name and birthdate. Duration of symptoms: N/A Person calling: self Call patient at: on cell [phone] (home) [phone] (cell) Was an appointment scheduled: No Closing statement: Results or non-symptom based questions: Thank you for calling [facility], your call will be returned within the next business day. Brianna Velez documented in this encounter [facility] 03-04-2025 Telephone encounter Note Minal is calling Andres Mann MD today to request to reschedule her post op appt for today. Please call patient to reschedule Patient has been identified by name and birthdate. Duration of symptoms: N/A Person calling: self Call patient at: on cell [phone] (home) [phone] (cell) Was an appointment scheduled: No Closing statement: Results or non-symptom based questions: Thank you for calling [facility], your call will be returned within the next business day. Brianna Velez [facility] 02-23-2025 Surgery Surgical operation note Minal Caputo [id number] February 23, 2025 Time: 1015 Place: [facility] Preop Diagnosis: Left face inclusion cyst Postop diagnosis:same Procedure: Excision of left face inclusion cyst, 2cm excised; complex repair 3.5 cm (cpt 55971) Anesthesia: Local Surgeon: Dharmesh Mann MD No qualified residents to assist with the procedure Mine Motor Engineer: ZEN Brief History: The patient was seen [...] the entire procedure. Signed: Dharmesh Mann MD [facility] Work Phone: 02-23-2025 Surgical operatio n note Minal J Wollenslegel [id number] February 23, 2025 Time: 1015 Place: [facility] Preop Diagnosis: Left face inclusion cyst Postop diagnosis:same Procedure: Excision of left face inclusion cyst, 2cm excised; complex repair 3.5 cm (cpt 05229) Anesthesia: Local Surgeon: Dharmesh Mann MD No qualified residents to assist with the procedure Mine Motor Engineer: NA Brief History: The patient was seen In [...] Dharmesh Mann MD documented in this encounter [facility] 02-19-2025 Instructions Minal Khanna DO - [...] me on mychart documented in this encounter [facility] 02-19-2025 History of Presen t illness [...] Minal Khanna DO documented in this encounter [facility] 02-19-[address] [facility] 02-16-2025 Miscellaneous Notes Patient called into office stating that she received a letter that she was overdue for her mammogram screening. Chart shows that the last one was 01/24/24. MAW scheduled for 06/22/25. Please advise? Patient notified of order placed. documented in this encounter [facility] 02-16-2025 Telephone encounter Note Patient called into office stating that she received a letter that she was overdue for her mammogram screening. Chart shows that the last one was 01/24/24. MAW scheduled for 06/22/25. Please advise? [facility] 02-16-2025 Telephone encounter Note Patient notified of order placed. [facility] 02-15-2025 History of Presen t illness [...] been reviewed prior to dispensing the medication. Director Clinical Applications Assessment Patient confirmed: Yes Med/dose confirmed: Yes Supplies needed: No supplies needed Missed doses: No Estimated days supply on hand: 0 Next cycle/dose due: 02/22/25 Copay amount: 0 Delivery method: FedEx Signature required: Waived on patient request Delivery address: [address] [place] [address] Delivery date: 02/19/25 Questions or concerns for [...] facility-administered medications on file prior to visit. [facility] RX SPECIALTY CLINICAL ASSESSMENT - HEMATOLOGY ONCOLOGY V6: Assessment to use: Refill Date of influenza vaccination reminder: 08/28/2024 Date of most recent vaccination assessment: 08/28/2024 Treatment Plan Information: Diagnosis: T3, N3, M0, invasive lobular carcinoma, grade 2, ER 80%, DC 5% and HER2/akash negative, IHC 0 Previous treatment(s): - L breast mastectomy - DDAC (2 cycles c/b neutropenic fever) - Taxol (2 weeks c/b infection and diverticulitis) - RT (03/03/24-03/24/24) - Verzenio (04/2024 - 05/2024 d/t diarrhea) - Arimidex (04/2024 - current) Treatment Plan: Ribociclib + Anastrozole Medication: Hilarioteodoraqali (ribociclib) Sig: Take 2 tablets (400 mg) [...] years Shanel Oropeza documented in this encounter [facility] 02-15-[address] [facility] 02-15-2025 Note IMPRESSION: Severe left hip osteoarthritis, progressed since 2021. Sales Compensation Analyst: PSCB Transcribe Date/Time: Feb 15 2025 1:05P [...] CT scan about a month ago at [facility], which reportedly showed a medium to large hernia. She denies having a current booster plant operator and last underwent pulmonary function testing about [...] View External Imaging - CT Scan [ID [id number]] Personal review and interpretation shows moderate paraesophageal [...] - Normal examined duodenum. EGD DIAGNOSTIC (Order #[id number]) on 02/11/2023 - Order Result History Report [...] Obtain the most recent CT scan from [facility] for review. - Refer to pulmonology [...] adult, unspecified whether serious comorbidity present (HCC) (E66.613) Patient has a high BMI, which increases [...] Gómez Baker MD documented in this encounter [facility] 02-15-[address] [facility] 02-15-[address] [facility] 02-15-2025 History of Presen t illness Narrative [...] Denies any new injury Does not recall manager long term care significant relief from IA hip injection done PHYSICAL EXAMINATION: Specific MSK Exam Antalgic gait IMAGING: Final results and radiologist's interpretation, available in the [facility] health record. Images were reviewed [...] these instructions. Informed Consent Consent Obtained: Verbal [place] Protocol A moment to CARE was completed. [...] Micah Son DO documented in this encounter [facility] 02-15-[address] [facility] 02-15-2025 History of Presen t illness Narrative [...] Andres Mann MD documented in this encounter [facility] 02-15-2025 History of Presen t illness [...] PATIENT PRESENTS WITH AN IMPLANTABLE OR ATTACHED FIBERGLASS FABRICATOR: No RADIOLOGY DEPARTMENT: General X-ray: Exam(s) Completed: Pelvis X-Ray: Pelvis with Hip Left PERIPHERAL IV DATA: Not applicable SIGNED BY: RT Jessica(R) February 15, 2025 9:59 AM documented in this encounter [facility] 02-15-[address] [facility] 01-19-2025 History of Presen t illness Narrative [...] been reviewed prior to dispensing the medication. Director Clinical Applications Assessment Patient confirmed: Yes Med/dose confirmed: Yes Supplies needed: No supplies needed Missed doses: No Estimated days supply on hand: 0 Next cycle/dose due: 01/25/25 Copay amount: 0 Delivery method: FedEx Signature required: Waived on patient request Delivery address: [address] [place] [address] Delivery date: 01/22/25 Questions or concerns for [...] facility-administered medications on file prior to visit. [facility] RX SPECIALTY CLINICAL ASSESSMENT - HEMATOLOGY ONCOLOGY V6: Assessment to use: Refill Date of influenza vaccination reminder: 08/28/2024 Date of most recent vaccination assessment: 08/28/2024 Treatment Plan Information: Diagnosis: T3, N3, M0, invasive lobular carcinoma, grade 2, ER 80%, DC 5% and HER2/akash negative, IHC 0 Previous [...] years Shanel Oropeza documented in this encounter [facility] 01-19-[address] [facility] 12-30-2024 Instructions Mara Solano LPN - 12/30/2024 9:54 AM EDT Schedule OV with Dr. Son, Ortho Schedule consult with Dr. Candelaria, general surgery F/U with Dr. Neri 04/01/25, port draw appt @ [facility] ( pt will call to schedule port draw) Schedule OV with Dr. Gabby Cobian, plastic surgery Schedule Mammogram ( pt prefers with another appt to reduce travel) documented in this encounter [facility] 12-30-[address] [facility] 12-30-2024 History of Presen t illness Narrative PATIENT NAME: Minal Caputo CLINIC NO.: [id number] ATTENDING PHYSICIAN: Mitch Neri MD DATE OF [...] cm, LVI present, Margins Negative, ER 80%, DC 5% and Her-2 IHC-0 Germline testing 07/2023: [...] grade 1 invasive lobular carcinoma ER 80%, DC 5% and HER2/akash with IHC 0. A [...] elected to transfer her care to the [facility] and underwent a L breast [...] Range Status 12/24/2024 10.0 % Final Abs Garza Date Value Ref Range Status 12/24/2024 0.23 [...] Histologic Type Invasive lobular carcinoma Histologic Grade (Shannon Histologic Score) Glandular (Acinar) / Tubular Differentiation [...] Examined (sentinel and non-sentinel) 4 Number of [place] Nodes Examined 4 pTNM CLASSIFICATION (AJCC 8th [...] invasive lobular carcinoma, grade 2, ER 80%, DC 5% and HER2/akash negative, IHC 0, cancer [...] Verzenio was started later due to patient personnel assistant program in late April 2024 at [...] do not hesitate to contact me at [phone]. Mitch Neri MD Hematology/Medical Oncology [facility] I spent a total of 30 minutes on the date of the service which included preparing to see the patient, mrdc-[id number] patient care, completing clinical documentation, obtaining and/or reviewing separately obtained history, performing a medically appropriate examination, and counseling and educating the patient/family/caregiver. CC: Sunny Jenkins MD documented in this encounter [facility] 12-24-2024 Note HNO ID: [id number] Author: HANSA ARORA MA Service: ? Author Type: Shift Supervisor Film Processing Type: Progress Notes Filed: 12/24/2024 09:13 Note Text: EKG performed as ordered. Hansa Arora MA [facility] 12-24-2024 History of Presen t illness Narrative EKG performed as ordered. Hansa Arora MA documented in this encounter [facility] 12-22-2024 Telephone encounter Note Please schedule repeat EKG and notify patient. [facility] 12-22-2024 Miscellaneous Notes Please schedule repeat EKG and notify patient. documented in this encounter [facility] 12-21-2024 History of Presen t illness [...] been reviewed prior to dispensing the medication. Director Clinical Applications Assessment Patient confirmed: Yes Med/dose confirmed: Yes Supplies needed: No supplies needed Missed doses: No Estimated days supply on hand: 0 Next cycle/dose due: 12/28/24 Copay amount: 0 Delivery method: FedEx Signature required: Waived on patient request Delivery address: [address] [facility] [id number] Delivery date: 12/24/24 Questions or concerns for [...] facility-administered medications on file prior to visit. [facility] RX SPECIALTY CLINICAL ASSESSMENT - HEMATOLOGY ONCOLOGY V6: Assessment to use: Refill Date of influenza vaccination reminder: 08/28/2024 Date of most recent vaccination assessment: 08/28/2024 Treatment Plan Information: Diagnosis: T3, N3, M0, invasive lobular carcinoma, grade 2, ER 80%, DC 5% and HER2/akash negative, IHC 0 Previous [...] years Shanel Oropeza documented in this encounter [facility] 12-21-[address] [facility] 11-24-2024 Telephone encounter Note Reviewed with Dr Neri in office-need for cbc/diff, cmp on week off of Kisqali. Keep appts as scheduled. [facility] 11-24-2024 Miscellaneous Notes Reviewed with Dr Neri in office-need for cbc/diff, cmp on week off of Kisqali. Keep appts as scheduled. documented in this encounter [facility] 11-23-2024 History of Presen t illness Narrative [facility] Refill Assessment Medication(s): [facility] Patient's current medication list and adherence status [...] been reviewed prior to dispensing the medication. Director Clinical Applications Assessment Patient confirmed: Yes Med/dose confirmed: Yes Supplies needed: No supplies needed Missed doses: No Estimated days supply on hand: 0 Next cycle/dose due: 11/30/24 Copay amount: 0 Copay form of payment: (N/A) Payment confirmed: Yes Delivery method: FedEx Signature required: Waived on patient request Delivery address: [address] [place] [address] [facility] [address] Delivery date: 11/27/24 Questions or concerns for [...] facility-administered medications on file prior to visit. [facility] RX SPECIALTY CLINICAL ASSESSMENT - HEMATOLOGY ONCOLOGY V6: Assessment to use: Refill Date of influenza vaccination reminder: 08/28/2024 Date of most recent vaccination assessment: 08/28/2024 Treatment Plan Information: Diagnosis: T3, N3, M0, invasive lobular carcinoma, grade 2, ER 80%, DC 5% and HER2/akash negative, IHC 0 Previous [...] years Halle Serrato documented in this encounter [facility] 11-23-[address] [facility] 11-23-[address] [facility] 10-26-2024 History of Presen t illness Narrative [...] been reviewed prior to dispensing the medication. Director Clinical Applications Assessment Patient confirmed: Yes Med/dose confirmed: Yes Supplies needed: No supplies needed Missed doses: No Estimated days supply on hand: 0 Next cycle/dose due: 11/02/24 Copay amount: 0 Delivery method: FedEx Signature required: Waived on patient request Delivery address: [address] [place] [address] Delivery date: 10/30/24 Questions or concerns for [...] facility-administered medications on file prior to visit. [facility] RX SPECIALTY CLINICAL ASSESSMENT - HEMATOLOGY ONCOLOGY V6: Assessment to use: Refill Date of influenza vaccination reminder: 08/28/2024 Date of most recent vaccination assessment: 08/28/2024 Treatment Plan Information: Diagnosis: T3, N3, M0, invasive lobular carcinoma, grade 2, ER 80%, DC 5% and HER2/akash negative, IHC 0 Previous [...] years Shanel Oropeza documented in this encounter [facility] 10-26-[address] [facility] 10-16-2024 Telephone encounter Note Received forms from [employer] to sign last page of treatment and 10/02 OV notes [facility] Neri signed treatment notes but not OV notes as they are electronically signed as his OV note. Faxed as directed to [phone] ph: [phone]-left message that forms have been completed [facility] 10-16-2024 Miscellaneous Notes Received forms from [employer] to sign last page of treatment and 10/02 OV notes [facility] Neri signed treatment notes but not OV notes as they are electronically signed as his OV note. Faxed as directed to [phone] ph: [phone]-left message that forms have been completed documented in this encounter [facility] 10-15-[address] [facility] 10-15-2024 History of Presen t illness Narrative [...] skin excision. cc: Referring provider Mitch Neri [address] [place] [address] Sierra Atkins MD documented in this encounter [facility] 10-15-2024 Instructions Mio Wells - 10/15/2024 9:[address] Atkins has ordered a consult with plastic surgery. The number to call is [phone]. documented in this encounter [facility] 10-13-2024 Telephone encounter Note Faxed last OV Dr Neri 10/02/24 as directed. [facility] 10-13-2024 Miscellaneous Notes Faxed last OV Dr Neri 10/02/24 as directed. [facility] is calling Mitch Neri MD today with concern regarding Orders for a Lymphoedema Compression Pump. They are trying to assist patient getting a pump. They would need OV notes. Please advise if these can be faxed to [phone]. Patient has been identified by name and birthdate. Duration of symptoms: N/A Person calling: Jeancarlos Call back at: [phone] Ex 183 Was an appointment scheduled: No Closing statement: Results or non-symptom based questions: Thank you for calling [facility], your call will be returned within the next business day. Elida Bowens documented in this encounter [facility] 10-13-2024 Telephone encounter Note [facility] is calling Mitch Neri MD today with concern regarding Orders for a Lymphoedema Compression Pump. They are trying to assist patient getting a pump. They would need OV notes. Please advise if these can be faxed to [phone]. Patient has been identified by name and birthdate. Duration of symptoms: N/A Person calling: Jeancarlos Call back at: [phone] Ex 183 Was an appointment scheduled: No Closing statement: Results or non-symptom based questions: Thank you for calling [facility], your call will be returned within the next business day. Elida Bowens [facility] 10-02-2024 Instructions Mara Solano LPN - 10/02/2024 1:52 PM EST Schedule consult with plastic surgery Mammogram December 2024 Schedule consult w/ nephrology F/U with Dr. Neri 12/30/24, oscar landis @ [facility] prior Cancel zometa today documented in this encounter [facility] 10-02-[address] [facility] 10-02-2024 History of Presen t illness Narrative PATIENT NAME: Minal Caputo CLINIC NO.: [id number] ATTENDING PHYSICIAN: Mitch Neri MD DATE OF [...] cm, LVI present, Margins Negative, ER 80%, DC 5% and Her-2 IHC-0 Germline testing 07/2023: [...] grade 1 invasive lobular carcinoma ER 80%, DC 5% and HER2/akash with IHC 0. A [...] elected to transfer her care to the [facility] and underwent a L breast [...] Range Status 09/11/2024 4.8 % Final Abs Garza Date Value Ref Range Status 09/11/2024 0.29 [...] Histologic Type Invasive lobular carcinoma Histologic Grade (Shannon Histologic Score) Glandular (Acinar) / Tubular Differentiation [...] Examined (sentinel and non-sentinel) 4 Number of [place] Nodes Examined 4 pTNM CLASSIFICATION (AJCC 8th [...] invasive lobular carcinoma, grade 2, ER 80%, DC 5% and HER2/akash negative, IHC 0, cancer [...] Verzenio was started later due to patient personnel assistant program in late April 2024 at [...] do not hesitate to contact me at [phone]. Mitch Neri MD Hematology/Medical Oncology [facility] I spent a total of 30 minutes on the date of the service which included preparing to see the patient, [id number] patient care, completing clinical documentation, obtaining and/or reviewing separately obtained history, performing a medically appropriate examination, and counseling and educating the patient/family/caregiver. CC: Sunny Jenkins MD documented in this encounter [facility] 09-29-2024 Note HNO ID: [id number] Author: HANSA ARORA MA Service: ? Author Type: Shift Supervisor Film Processing Type: Progress Notes Filed: 09/29/2024 09:23 Note Text: Patient identified by 2 identifiers. EKG performed as ordered. Hansa Arora MA [facility] 09-29-2024 History of Presen t illness Narrative Patient identified by 2 identifiers. EKG performed as ordered. Hansa Arora MA documented in this encounter [facility] 09-21-2024 History of Presen t illness [...] been reviewed prior to dispensing the medication. Director Clinical Applications Assessment Patient confirmed: Yes Med/dose confirmed: Yes Supplies needed: No supplies needed Missed doses: No Estimated days supply on hand: 7 Next cycle/dose due: 10/05/24 Copay amount: 0 Payment confirmed: Yes Delivery method: FedEx Signature required: Waived on patient request Delivery address: [address] [place] [id number] Delivery date: 10/02/24 Questions or concerns for [...] facility-administered medications on file prior to visit. [facility] SPECIAL[facility] CLINICAL ASSESSMENT - HEMATOLOGY ONCOLOGY V6: Assessment to use: Refill Date of influenza vaccination reminder: 08/28/2024 Date of most recent vaccination assessment: 08/28/2024 Treatment Plan Information: Diagnosis: T3, N3, M0, invasive lobular carcinoma, grade 2, ER 80%, DC 5% and HER2/akash negative, IHC 0 Previous treatment(s): - L breast mastectomy - DDAC (2 cycles c/b neutropenic fever) - Taxol (2 weeks c/b infection and diverticulitis) - RT (03/03/24-03/24/24) - Verzenio (04/2024 - 05/2024 d/t diarrhea) - Arimidex (04/2024 - current) Treatment Plan: Ribociclib + Anastrozole Medication: Dahliatanja (ribociclib) Sig: Take 2 tablets (400 mg) [...] Estimated Treatment Duration: 3 years Merly Caceres ([employer]) documented in this encounter [facility] 09-21-[address] [facility] 09-14-2024 Telephone encounter Note ORAL ANTI-CANCER AGENTS [...] if unable to comply. Torri Ibarra RN [facility] 09-14-2024 Miscellaneous Notes ORAL ANTI-CANCER AGENTS [...] Torri Ibarra RN documented in this encounter [facility] 09-14-2024 Telephone encounter Note I called [...] concerns regarding radiation therapy. Windy Jiang RN [facility] 09-14-2024 Miscellaneous Notes I called and [...] Windy Jiang RN documented in this encounter [facility] 09-02-2024 Telephone encounter Note Spoke with patient regarding provider message-voices understanding and appreciative of call. [facility] 09-02-2024 Miscellaneous Notes Spoke with patient regarding provider message-voices understanding and appreciative of call. ----- Message from Mitch Neri MD sent at 09/02/2024 4:39 PM EST ----- Call with negaitve cytology documented in this encounter [facility] 09-02-2024 Telephone encounter Note ----- Message from Mitch Neri MD sent at 09/02/2024 4:39 PM EST ----- Call with negaitve cytology [facility] 09-01-[address] [facility] 09-01-2024 History of Presen t illness Narrative [...] complete a 28-day treatment Anticipated/Scheduled start date: 09/07/24 READINESS TO LEARN Cognitive Ability: Alert and [...] Nia Snider RN documented in this encounter [facility] 08-12-2024 Note HNO ID: [id number] Author: BARBARA PHELAN MA Service: ? Author Type: Shift Supervisor Film Processing Type: Progress Notes Filed: 08/12/2024 13:14 Note Text: Patient appt canceled Patient scheduled incorrectly. Rescheduled with IR [facility] 08-12-2024 History of Presen t illness Narrative Patient appt canceled Patient scheduled incorrectly. Rescheduled with IR documented in this encounter [facility] 07-30-2024 Telephone encounter Note Called and spoke to patient. Scheduled for repeat FNA in [place] with Dr. Mcgregor for 08/12/24 [facility] 07-30-2024 Miscellaneous Notes Called and spoke to patient. Scheduled for repeat FNA in [place] with Dr. Mcgregor for 08/12/24 Called and [...] done on 07/15 documented in this encounter [facility] 07-24-2024 Telephone encounter Note Called and spoke with patient Below msg reviewed with patient Please contact pt to schedule Thanks [facility] 07-24-2024 Telephone encounter Note The FNA result was inconclusive. Repeat FNA in IR after about 1 month is recommended. Order placed. Please assist patient to schedule. [facility] 07-20-2024 Telephone encounter Note FINAL DIAGNOSIS A - Thyroid, Right Lobe, Fine Needle Aspirate - Mid Non-diagnostic aspirate sample. Insufficient thyroid follicular epithelial cells present for evaluation. FNA done on 07/15 [facility] 07-17-2024 Note HNO ID: [id number] Author: LAURA LOWRY MA Service: ? Author Type: Shift Supervisor Film Processing Type: Progress Notes Filed: 07/17/2024 10:31 Note Text: Patient identified by 2 identifiers. EKG performed as ordered. Laura Lowry MA [facility] 07-17-2024 History of Presen t illness Narrative Patient identified by 2 identifiers. EKG performed as ordered. Laura Lowry MA documented in this encounter [facility] 07-16-2024 History of Presen t illness Narrative Images from the original note were not included. [facility] received prescription(s) for Kisqali from Dr. Neri's office. Benefits investigation was conducted, indicating that a prior authorization is required by patient's insurance plan with [employer]. Encounter will be updated once prior authorization has been submitted by [facility]. Halle Serrato CPhT [facility], Oncology P: / F: documented in this encounter [facility] 07-16-[address] [facility] 07-16-[address] [facility] 07-16-[address] [facility] 07-16-[address] [facility] 07-16-[address] [facility] 07-16-[address] [facility] 07-16-[address] [facility] 07-16-[address] [facility] 07-16-[address] [facility] 07-16-2024 Instructions Cinthia Tim LPN - 07/16/2024 9:21 AM EST Schedule EKG wallace (francine) Schedule EKG 1 week after you start Schedule Office visit with Dr Culver in 3 weeks documented in this encounter [facility] 07-16-[address] [facility] 07-16-2024 History of Presen t illness Narrative PATIENT NAME: Minal Caputo CLINIC NO.: [id number] ATTENDING PHYSICIAN: Mitch Neri MD DATE OF [...] cm, LVI present, Margins Negative, ER 80%, DC 5% and Her-2 IHC-0 Germline testing 07/2023: [...] grade 1 invasive lobular carcinoma ER 80%, DC 5% and HER2/akash with IHC 0. A [...] elected to transfer her care to the [facility] and underwent a L breast [...] Range Status 07/06/2024 4.5 % Final Abs Garza Date Value Ref Range Status 07/06/2024 0.25 [...] Examined (sentinel and non-sentinel) 4 Number of [place] Nodes Examined 4 pTNM CLASSIFICATION (AJCC 8th [...] invasive lobular carcinoma, grade 2, ER 80%, DC 5% and HER2/akash negative, IHC 0, cancer [...] Verzenio was started later due to patient personnel assistant program in late April 2024 at [...] do not hesitate to contact me at [phone]. Mitch Neri MD Hematology/Medical Oncology [facility] Hightower spent a total of 30 minutes on the date of the service which included preparing to see the patient, [id number] patient care, completing clinical documentation, obtaining and/or reviewing separately obtained history, performing a medically appropriate examination, and counseling and educating the patient/family/caregiver. CC: Sunny Jenkins MD documented in this encounter [facility] 07-15-[address] [facility] 07-15-2024 Procedure note Associated Ord er(s): FNA [...] the patient. Informed Consent Consent Obtained: Written [place] Protocol A moment to CARE was completed. [...] are available. Follow up with referring physician. [facility] 07-15-2024 Procedure note Associated Ord er(s): [...] the patient. Informed Consent Consent Obtained: Written [place] Protocol A moment to CARE was completed. [...] with referring physician. documented in this encounter [facility] 07-15-2024 Nurse Note UNIVERSAL PROTOCOL / [...] Visit completed when applicable. Barbara Phelan MA [facility] 07-15-2024 Nurse Note UNIVERSAL PROTOCOL / [...] Barbara Phelan MA documented in this encounter [facility] 07-14-[address] [facility] 07-14-2024 History of Presen t illness Narrative (Z98.41) Status post cataract surgery, right (primary encounter diagnosis) Comment: 4-5 weeks S/ P PEIOL OD pt happy with improved vision Plan: spec rx given warned symptoms of PCO Follow up in 12 months FULL exam here or in [place] with Dr Millan (Z98.42) Status post cataract surgery, left Comment: 4-5 weeks S/ P PEIOL Os pt reports blur in left without correction discussed cause as uncorrected astigmatism Plan: spec rx given warned symptoms of PCO Follow up in 12 months FULL exam here or in [place] with Dr Millan I have confirmed and [...] of its relevant components. Rakesh Palma, TRIXIE July 14, 2024 4:46 PM documented in this encounter [facility] 07-07-2024 Telephone encounter Note Spoke with patient to encourage po intake, stop Verzenio-pt states she has stopped last night already and feels better today-will plan on BMP lab 07/15 while at [facility] and have results for 07/[address] Neri. [facility] 07-07-2024 Miscellaneous Notes Spoke with patient to encourage po intake, stop Verzenio-pt states she has stopped last night already and feels better today-will plan on BMP lab 07/15 while at [place] appt and have results for 07/[address] Neri. I think that she is pre-renal and I have asked her to stop the Verzinio and push fluids and check Creat next week again, I think that she is seeing me 07/16 and we can do labs then documented in this encounter [facility] 07-07-2024 Telephone encounter Note I think that she is pre-renal and I have asked her to stop the Verzinio and push fluids and check Creat next week again, I think that she is seeing me 07/16 and we can do labs then [facility] 07-01-2024 Telephone encounter Note Please see phone encounter 06/23/24 [facility] 07-01-2024 Miscellaneous Notes Please see phone encounter 06/23/24 documented in this encounter [facility] 06-23-2024 Telephone encounter Note Patient was seen by Dr. Mcgregor for thyroid nodules in April 2024. Please advise if he can place FNA order so we can schedule. Otherwise, providers are booking far out for another consult. [facility] 06-23-2024 Miscellaneous Notes Patient was seen by Dr. Mcgregor for thyroid nodules in April 2024. Please advise if he can place FNA order so we can schedule. Otherwise, providers are booking far out for another consult. Care Coordination Triage Note [facility] [place] Situation: Results US thyroid/parathyroid Background: Disease, current [...] expecting a call. documented in this encounter [facility] 06-23-[address] [facility] 06-23-2024 History of Presen t illness Narrative [...] 2024 12:01 PM documented in this encounter [facility] 06-23-2024 Telephone encounter Note Care Coordination Triage Note [facility] Situation: Results US thyroid/parathyroid Background: Disease, current [...] Myers RN June 23, 2024 11:50 AM [facility] 06-23-2024 Telephone encounter Note Please schedule referral to endocrinology [facility] for biopsy of thyroid nodule found on US. Please notify patient of day/time of appointment, she is expecting a call. [facility] 06-18-[address] [facility] 06-18-2024 History of Presen t illness Narrative [...] 2024 11:30 AM documented in this encounter [facility] 06-18-[address] [facility] 06-18-2024 History of Presen t illness Narrative [...] PATIENT PRESENTS WITH AN IMPLANTABLE OR ATTACHED FIBERGLASS FABRICATOR: No RADIOLOGY DEPARTMENT: Ultrasound PERIPHERAL IV DATA: Not applicable SIGNED BY: Poonam Oglesby RDMS, RVT June 18, 2024 11:18 AM documented in this encounter [facility] 06-10-2024 Miscellaneous Notes Minal called to inform provider a new referral for core PT is needed. She stated she talked to provider about it in her appointment. documented in this encounter [facility] 06-10-2024 Telephone encounter Note Minal called to inform provider a new referral for core PT is needed. She stated she talked to provider about it in her appointment. [facility] 06-10-2024 History of Presen t illness Narrative Images from the original note were not included. [address] [place] [id number] Subjective: Minal Caputo is a 68 [...] Do you have a durable power of collections attorney?: Yes Cognitive Screening Do you have trouble remembering or recalling facts or events?: No Do family members or caregivers report that you have difficulty remembering things?: No Vitals: Vitals: 06/10/24 0921 BP: 128/68 Pulse: 72 Temp: 36.8 C (98.2 F) SpO2: 98% Body mass index is 50.85 kg/m . History: Patient Active Problem List Diagnosis Date Noted Seropositive rheumatoid arthritis ([facility] 01/28/2024 Cancer of overlapping sites of left breast ([facility]) 07/04/2023 Abnormal glucose 04/24/2023 Severely overweight 04/24/2023 Lower leg edema 04/24/2023 Chronic left hip pain 04/24/2023 Chronic generalized pain 04/24/2023 Spinal stenosis 04/02/2023 Arthritis 04/02/2023 Hypertension 04/02/2023 GERD (gastroesophageal reflux disease) 02/08/2022 Calculus of kidney 07/06/2021 Abnormal mammogram of left breast 09/12/2020 Severe obesity (BMI >= 40) ([facility]) 09/24/2019 Primary osteoarthritis of both knees 12/23/2017 Past Medical History: Diagnosis Date Allergic Arthritis Back pain Breast cancer ([facility]) 06/26/2023 COPD (chronic obstructive pulmonary disease) ([facility]) GERD (gastroesophageal reflux disease) Heart murmur History of blood clots HTN (hypertension) Hyperlipidemia Kidney stones Obesity Pneumonia Primary invasive malignant neoplasm of female breast, left ([facility]) 06/28/2023 Recurrent UTI Rheumatoid arthritis ([facility]) Scoliosis Varicella Visual impairment glasses Past Surgical [...] listed below. CARE TEAM: -PCP -Oncology - [facility] - Breast Ca and Thyroid nodules - Personalized Prevention Plan Services: Specialty Evaluation Advised:N/A Preventative Programs Recommended: N/A Prevention Counseling and Education Materials:Staying Healthy: Medicare's Preventive Services ([facility]) Diseases: Breast Cancer: What you need to [...] annual wellness visit, subsequent Seropositive rheumatoid arthritis ([facility]) - predniSONE 5 mg tablets,dose pack; One [...] with complicated medical history, currently following Oncology [facility] for breast cancer. She is primarily [...] and hip pain. She was unwilling to [place] referrals or consult services to consider her options. Refused any pain control medicine. Refused any mood stabilizing medicine. Ultimately settled on prednisone to help with polyarthralgia Patient will follow with Rheumatology in the near future as well to re-initiate DMARDs when safe. There are no Patient Instructions on file for this visit. SUNNY JENKINS MD 06/10/24 documented in this encounter [facility] 06-09-[address] [facility] 06-09-2024 History of Presen t illness Narrative (Z98.42) Status post cataract surgery, left (primary encounter diagnosis) Comment: 1 week S/P PEIOL OS healing well pt happy with improved vision Plan: advised follow tapering schedule with [facility]ESH 3-2-1 (H25.811) Combined forms of age-related cataract [...] 2024 11:23 AM documented in this encounter [facility] 06-03-2024 Instructions Yvonne Marsh LPN - 06/03/2024 2:49 PM EDT Labs in [facility] in 1 week MD exam and labs prior to the visit in 6 weeks documented in this encounter [facility] 06-03-2024 Telephone encounter Note Faxed new verzenio rx with dose reduction along with OV notes today hem/onc for Verzenio 100mg tablet BID to [facility] pharmacy at fax: [phone]. [facility] 06-03-2024 Miscellaneous Notes Faxed new verzenio rx with dose reduction along with OV notes today hem/onc for Verzenio 100mg tablet BID to [facility] pharmacy at fax: [phone]. documented in this encounter [facility] 06-03-[address] [facility] 06-03-2024 History of Presen t illness Narrative PATIENT NAME: Minal Caputo CLINIC NO.: [id number] ATTENDING PHYSICIAN: Mitch Neri MD DATE OF [...] cm, LVI present, Margins Negative, ER 80%, DC 5% and Her-2 IHC-0 Germline testing 07/2023: [...] grade 1 invasive lobular carcinoma ER 80%, DC 5% and HER2/akash with IHC 0. A [...] elected to transfer her care to the [facility] and underwent a L breast [...] Range Status 06/01/2024 5.5 % Final Abs Garza Date Value Ref Range Status 06/01/2024 0.24 [...] Examined (sentinel and non-sentinel) 4 Number of [place] Nodes Examined 4 pTNM CLASSIFICATION (AJCC 8th [...] invasive lobular carcinoma, grade 2, ER 80%, DC 5% and HER2/akash negative, IHC 0, cancer [...] Verzenio was started later due to patient personnel assistant program in late April 2024 at [...] do not hesitate to contact me at [phone]. Mitch Neri MD Hematology/Medical Oncology [facility] I spent a total of 30 minutes on the date of the service which included preparing to see the patient, [id number] patient care, completing clinical documentation, obtaining and/or reviewing separately obtained history, performing a medically appropriate examination, and counseling and educating the patient/family/caregiver. CC: Sunny Jenkins MD documented in this encounter [facility] 06-03-[address] [facility] 06-03-2024 History of Presen t illness Narrative [...] its relevant components. documented in this encounter [facility] 06-03-2024 Miscellaneous Notes Patient called and left voicemail requesting a refill on metoprolol tartrate 50 mg to [facility] pharmacy in [place]. Pended in chart. documented in this encounter [facility] 06-03-2024 Telephone encounter Note Patient called and left voicemail requesting a refill on metoprolol tartrate 50 mg to [facility] pharmacy in [place]. Pended in chart. [facility] 05-19-[address] [facility] 05-19-2024 History of Presen t illness Narrative Confirmed Aim: [place] Patient wishes to proceed plano both eyes, understands she will need glasses for near vision. Prior Refractive surgery No Written pre-op instructions regarding eye drops and care reviewed with patient. MARISA Valentine May 19, 2024 2:38 PM documented in this encounter [facility] 05-19-2024 History and physical note Images [...] during sleep Non-male patient STOP-Bang Score: 4 [id number] Score: Age: 65-74 Sex: female CHF history: No Hypertension history: Yes Stroke/TIA/thromboembolism history: No Vascular disease history: No Diabetes history: No [id number] Score: 3 ARISCAT Score: Age: 51-80 Preoperative [...] fevers. Neuro: No history of TIA's, stroke, INVESTMENT OFFICER tumor, impaired sensorium, hemiplegia, paraplegia or quadraplegia. No neurological symptoms or problems. Respiratory: Positive for Chronic PETERSON, Negative for Asthma, Bronchitis, Current cough, Tobacco Use, URI < 2 weeks, Wheezing Cardiovascular: Positive for HTN, HLD +Palpitations History of PE was on Eliquis for 3 months no history of angina, CHF, PR, cardiac surgery or stents. Denies rest pain, gangrene or revascularization/amputation for PVD GI: Positive for GERD, Hiatal hernia , Negative for Abdominal pain, Hepatitis, Liver disease, IBS, Colon cancer, Rectal cancer : No difficulty urinating, nocturia > 1 time per night or hematuria, Positive for history of kidney stones COMPUTER SYSTEMS SUPPORT SPECIALIST: Negative for abnormal vaginal bleeding, abnormal vaginal [...] monovalent (MODERNA) 11/23/2020 Imm Admin: COVID-19 vaccine ([employer]) PAST MEDICAL HISTORY Diagnosis Date Atrial fibrillation (HCC) Diverticulitis GERD (gastroesophageal reflux disease) Hiatal hernia HLD (hyperlipidemia) HTN (hypertension) Obesity, unspecified Other and unspecified hyperlipidemia Scoliosis Spinal stenosis, unspecified region other than cervical UTI (urinary tract infection) PAST SURGICAL HISTORY Procedure Laterality Date , CLASSIC, IN-HOSP CARE 1980 COLONOSCOPY CURETTAGE EGD MASTECTOMY, SIMPLE, COMPLETE Left PAST SURGICAL HISTORY OF 1986 spinal instrumentation (Vaaldez rods) PAST SURGICAL HISTORY OF 2006 lumbar [...] Prior to Admission medications as of 05/19/24 3275 Medication Sig Last Dose Taking anastrozole (ARIMIDEX) [...] fevers. Neuro: No history of TIA's, stroke, INVESTMENT OFFICER tumor, impaired sensorium, hemiplegia, paraplegia or quadraplegia. [...] or incontinence,, stones or chronic kidney disease COMPUTER SYSTEMS SUPPORT SPECIALIST: See HPI : N/A, Patient's last menstrual [...] UNDER CARDIAC TAB, dated 09/23/2023 All in [facility] Instructions Given to Patient: Instructions located in the after visit summary. Patient given verbal and written preop instructions and voices comprehension and compliance. SIGNATURE: Mary Lou Singh APRN.CNP PATIENT NAME: Minal Caputo DATE: 05/19/2024 TIME: 2:02 PM [facility] 05-19-2024 History and physical note Images [...] during sleep Non-male patient STOP-Bang Score: 4 [id number] Score: Age: 65-74 Sex: female CHF history: No Hypertension history: Yes Stroke/TIA/thromboembolism history: No Vascular disease history: No Diabetes history: No [id number] Score: 3 ARISCAT Score: Age: 51-80 Preoperative [...] fevers. Neuro: No history of TIA's, stroke, INVESTMENT OFFICER tumor, impaired sensorium, hemiplegia, paraplegia or quadraplegia. No neurological symptoms or problems. Respiratory: Positive for Chronic PETERSON, Negative for Asthma, Bronchitis, Current cough, Tobacco Use, URI < 2 weeks, Wheezing Cardiovascular: Positive for HTN, HLD +Palpitations History of PE was on Eliquis for 3 months no history of angina, CHF, PR, cardiac surgery or stents. Denies rest pain, gangrene or revascularization/amputation for PVD GI: Positive for GERD, Hiatal hernia , Negative for Abdominal pain, Hepatitis, Liver disease, IBS, Colon cancer, Rectal cancer : No difficulty urinating, nocturia > 1 time per night or hematuria, Positive for history of kidney stones COMPUTER SYSTEMS SUPPORT SPECIALIST: Negative for abnormal vaginal bleeding, abnormal vaginal [...] monovalent (MODERNA) 11/23/2020 Imm Admin: COVID-19 vaccine ([employer]) PAST MEDICAL HISTORY Diagnosis Date Atrial fibrillation [...] Prior to Admission medications as of 05/19/24 7845 Medication Sig Last Dose Taking anastrozole (ARIMIDEX) [...] Arm Weakness Copd (Chronic Obstructive Pulmonary Disease) ([facility]) Gerd (Gastroesophageal Reflux Disease) Primary Hypertension Peterson (Dyspnea On Exertion) Edema Palpitations Invasive Lobular Carcinoma of Breast in Female ([facility]) Ra (Rheumatoid Arthritis) ([facility]) Obesity, Class III, BMI >= 40 Subjective [...] fevers. Neuro: No history of TIA's, stroke, INVESTMENT OFFICER tumor, impaired sensorium, hemiplegia, paraplegia or quadraplegia. [...] or incontinence,, stones or chronic kidney disease COMPUTER SYSTEMS SUPPORT SPECIALIST: See HPI : N/A, Patient's last menstrual [...] TIME: 2:02 PM documented in this encounter [facility] 05-19-2024 Instructions Mary Lou Singh APRN.CNP - 05/19/2024 2:15 PM EDT Images from the original note were not included. [facility] PATIENT PREOPERATIVE INSTRUCTIONS Johanne Fitzgerald MD has scheduled you for your procedure at this surgery center: [facility]: [phone] --[phone] [facility]. [facility] [place] [address]. Please read below carefully for your personalized [...] Procedures: - YOU MUST HAVE A RESPONSIBLE OUTSIDE SALES ADVERTISING EXECUTIVE TAKE YOU HOME. A HARDNESS INSPECTOR OR DIRECTOR OF REHABILITATION AND WELLNESS CANNOT BE MADE A RESPONSIBLE OUTSIDE SALES ADVERTISING EXECUTIVE. - We recommend that a responsible person stays with you overnight to take care of you. - You cannot stay in a hotel alone after outpatient surgery. You will not be permitted to have your surgery, if you do not have someone to take care of you. If you already have an Advance Directive, please fax a copy to [phone] or email to for it to be [...] Lou Singh APRN.NEY documented in this encounter [facility] 05-15-[address] [facility] 05-15-2024 History of Presen t illness Narrative [...] enrolled to receive free Verzenio through the [employer] with approval dates 05/14/24 through 08/25/24. [employer] program contact number is [phone]. The medication will now ship through their contracted dispensing pharmacy, [facility], phone number [phone]. READINESS TO LEARN Cognitive Ability: Alert and [...] pt will come after eye appt in [place] as follow up to cataract surgery (Dr. Neri aware) and have labs done in [place] day prior to appt Called [facility] pharmacy [phone] states they just received rx from [facility] and will take 3 business days to contact patient for shipment which is done overnight once account is set up Nia Snider RN documented in this encounter [facility] 05-07-2024 Telephone encounter Note Addended office note faxed as requested. Windy Jiang RN [facility] 05-07-2024 Miscellaneous Notes Addended office note faxed as requested. Windy Jiang RN Emma, with [employer], called requesting Dr. Norman santamaria his last office note to include that Minal has been diagnosed with lymphedema in order for her insurance to cover the compression sleeve. Please fax the addended office note to [phone] ATTN: Emma. Thanks Windy Jiang RN documented in this encounter [facility] 05-05-[address] [facility] 05-05-2024 History of Presen t illness Narrative [...] Mcgregor MD, PhD documented in this encounter [facility] 04-30-2024 Telephone encounter Note Emma, with [employer], called requesting Dr. Norman byrdend his last office note to include that Minal has been diagnosed with lymphedema in order for her insurance to cover the compression sleeve. Please fax the addended office note to [phone] ATTN: Emma. Thanks Windy Jiang RN [facility] 04-22-2024 History of Presen t illness Narrative Images from the original note were not included. [facility] received prescription(s) for Verzenio from Dr. Neri's office. Benefits investigation was conducted, indicating that a prior authorization is required by patient's insurance plan with [employer]. Encounter will be updated once prior authorization has been submitted by [facility]. Halle Serrato [facility], Oncology P: / F: documented in this encounter [facility] 04-22-[address] [facility] 04-22-[address] [facility] 04-22-[address] [facility] 04-22-[address] [facility] 04-22-[address] [facility] 04-21-2024 Telephone encounter Note Call placed to [...] with questions in between. Isadora Wright RN [facility] 04-21-2024 Miscellaneous Notes Call placed to [...] Isadora Wright RN documented in this encounter [facility] 04-21-2024 Instructions Yvonne Marsh LPN - 04/21/2024 10:16 AM EDT Reschedule bone density from [place] to [facility] Schedule chemo teach with Nia Sheppard Follow up with Dr. Neri in 4 weeks Labs prior documented in this encounter [facility] 04-21-[address] [facility] 04-21-2024 History of Presen t illness Narrative PATIENT NAME: Minal Caputo CLINIC NO.: [id number] ATTENDING PHYSICIAN: Mitch Neri MD DATE OF [...] cm, LVI present, Margins Negative, ER 80%, DC 5% and Her-2 IHC-0 Germline testing 07/2023: [...] grade 1 invasive lobular carcinoma ER 80%, DC 5% and HER2/akash with IHC 0. A [...] elected to transfer her care to the [facility] and underwent a L breast [...] Range Status 03/03/2024 8.4 % Final Abs Garza Date Value Ref Range Status 03/03/2024 0.65 [...] Histologic Type Invasive lobular carcinoma Histologic Grade (Shannon Histologic Score) Glandular (Acinar) / Tubular Differentiation [...] Examined (sentinel and non-sentinel) 4 Number of [place] Nodes Examined 4 pTNM CLASSIFICATION (AJCC 8th [...] invasive lobular carcinoma, grade 2, ER 80%, DC 5% and HER2/akash negative, IHC 0, cancer [...] yet. Will try to schedule [facility] at [facility] for her Will schedule patient for a [...] do not hesitate to contact me at [phone]. Mitch Neri MD Hematology/Medical Oncology [facility] I spent a total of 30 minutes on the date of the service which included preparing to see the patient, [id number] patient care, completing clinical documentation, obtaining and/or reviewing separately obtained history, performing a medically appropriate examination, and counseling and educating the patient/family/caregiver. CC: Sunny Jenkins MD documented in this encounter [facility] 04-21-2024 Note HNO ID: [id number] Author: RANDELL BURNETT MA Service: ? Author Type: Shift Supervisor Film Processing Type: Progress Notes Filed: 04/21/2024 10:20 Note Text: [facility] 04-13-2024 History of Presen t illness Narrative [address] [place] [id number] Patient: Minal Caputo Date of : [...] on Eliquis for 3 months. Followed at [facility], repeat CT angiogram of chest completed ruled out any pulmonary embolism being pleasant, Eliquis was discontinued. She has recently discontinued any chemotherapy and radiation therapy due to poor tolerance as of 3 weeks ago. Continues to have hip pain and joint pain and therefore requesting refill of her naproxen. Recommended after reestablish with her traffic engineering technician to consider re-initiation of methotrexate. Otherwise no [...] orders for this visit: Seropositive rheumatoid arthritis ([facility]) Other acute pulmonary embolism without acute cor pulmonale ([facility]) Edema, unspecified type Hypertension, unspecified type Severe obesity (BMI >= 40) ([facility]) Cancer of overlapping sites of left breast ([facility]) Lower leg edema Extensive review of medical [...] Visit via Real-time Synchronous Audiovisual Provider Location: [facility] [address] [place] [id number] Patient Location: Patient's home Video Visit Consent [...] that there are some limitations compared to [id number] evaluations. The patient consented to the presence of additional virtual and/or in-person participants. We elected to proceed. SUNNY JENKINS MD Family Medicine Physician [facility] 04/13/24 This note was completed with voice recognition software. The document was reviewed for errors however some may still be present. Please do not hesitate to contact/Epic msg the author to verify any questions/concerns. documented in this encounter [facility] 03-24-2024 History of Presen t illness Narrative [facility] Radiation Oncology Department RADIATION ONCOLOGY - COMPLETION NOTE PATIENT: MINAL CAPUTO: [id number] DATES OF TREATMENT: 03/03/2024 to 03/24/24 DIAGNOSIS: Ms. Caputo is a 68-year-old woman with locally advanced breast cancer, [id number], arising from the left breast status post [...] Mitch Neri MD ([facility]) Sunny Jenkins MD [address] [facility] [address] [address] documented in this encounter [facility] 03-23-2024 Note Date of Procedure 03/23/2024. Director Clinical Applications Information System Configuration Specialist: MARYANNE. Difficult saving and sending . Interpretation [...] March 23, 2024 documented in this encounter [facility] 03-19-2024 History of Presen t illness Narrative Radiation Oncology - On Treatment Review (OTR) Note PATIENT NAME: Minal Caputo PATIENT Josef Austin MD documented in this encounter [facility] 03-11-2024 History of Presen t illness Narrative RADIATION ONCOLOGY- ON TREATMENT REVIEW (OTR) NOTE PATIENT NAME: Minal Caputo PATIENT Signed by: Josef Austin MD documented in this encounter [facility] 03-11-2024 Nurse Note Status: Post-menopausal. [facility] 03-11-2024 Nurse Note Status: Post-menopausal. documented in this encounter [facility] 03-05-2024 Telephone encounter Note Patient called back and is scheduled per below [facility] 03-05-2024 Miscellaneous Notes Patient called back and is scheduled per below LVM/LMC to schedule FU in [address] Neri and Andres, and then a Bone Density Scan. Images from the original note were not included. Gary: Please contact patient to schedule. Thank you! Nery Simeon documented in this encounter [facility] 03-04-2024 Telephone encounter Note Care Coordination Handoff Report [facility] Situation: Patient is transferring her full care from Dr. Neri in [place] to [place] Next Appointment scheduled: 04/21/24 Background: Diagnosis: Breast Cancer Treatment Regimen (refer to [employer] [place] [employer]) currently receiving radiation therapy. Received 2 cycles of AC and 2 treatments of Taxol. She did not tolerate treatment very well and they were very inconsistent. Assessment: Ambulation: with walker Patient Education Completed: yes Recommendations: Special Considerations: pt's last treatment was 12/31/23 and currently receiving radiation. Pt is considered high risk for recurrence. [facility] name/pager/phone number: Yvonne [phone] Yvonne Baumann RN [facility] Work Phone: 03-04-2024 Miscellaneous Notes Care Coordination Handoff Report [facility] Situation: Patient is transferring her full care from Dr. Neri in [place] to [place] Next Appointment scheduled: 04/21/24 Background: Diagnosis: Breast Cancer Treatment Regimen (refer to [employer] [place] [employer]) currently receiving radiation therapy. Received 2 cycles of AC and 2 treatments of Taxol. She did not tolerate treatment very well and they were very inconsistent. Assessment: Ambulation: with walker Patient Education Completed: yes Recommendations: Special Considerations: pt's last treatment was 12/31/23 and currently receiving radiation. Pt is considered high risk for recurrence. [facility] name/pager/phone number: Yvonne [phone] Yvonne Baumann RN documented in this encounter [facility] 03-04-2024 Telephone encounter Note LVM/LMC to schedule FU in [address] Neri and Andres, and then a Bone Density Scan. [facility] 03-03-2024 Telephone encounter Note Images from the original note were not included. Swapna: Please contact patient to schedule. Thank you! Nery Simeon [facility] 03-03-2024 Instructions Mitch Neri MD - [...] usual activities immediately. documented in this encounter [facility] 03-03-2024 History of Presen t illness Narrative PATIENT NAME: Minal Fentontrevonhe CLINIC NO.: [id number] ATTENDING PHYSICIAN: Mitch Neri MD DATE OF [...] cm, LVI present, Margins Negative, ER 80%, DC 5% and Her-2 IHC-0 Germline testing 07/2023: [...] grade 1 invasive lobular carcinoma ER 80%, DC 5% and HER2/akash with IHC 0. A [...] elected to transfer her care to the [facility] and underwent a L breast [...] Range Status 03/03/2024 8.4 % Final Abs Garza Date Value Ref Range Status 03/03/2024 0.65 [...] Examined (sentinel and non-sentinel) 4 Number of [place] Nodes Examined 4 pTNM CLASSIFICATION (AJCC 8th [...] invasive lobular carcinoma, grade 2, ER 80%, DC 5% and HER2/akash negative, IHC 0, cancer [...] 2024 and has elected to follow at [facility] for radiation rather than closer to [...] do not hesitate to contact me at [phone]. Mitch Neri MD Hematology/Medical Oncology [facility] Hightower spent a total of 30 minutes on the date of the service which included preparing to see the patient, [id number] patient care, completing clinical documentation, obtaining and/or reviewing separately obtained history, performing a medically appropriate examination, and counseling and educating the patient/family/caregiver. CC: Sunny Jenkins MD documented in this encounter [facility] 02-13-2024 Telephone encounter Note Sent information over for emerald. Will call to check on it. [facility] 02-13-2024 Miscellaneous Notes Sent information over for emerald. Will call to check on it. Minal called stating she and Dr. Austin discussed referral to the lymphedema clinic. She would like the appointment scheduled at [facility]. She provided their fax [phone]. Dr. Austin order is pending your approval. Yvonne will you please schedule per patient request. She does prefer a.m. appointments but will take any time that is offered. Thanks Windy Jiang RN documented in this encounter [facility] 02-13-2024 Telephone encounter Note Minal called stating she and Dr. Austin discussed referral to the lymphedema clinic. She would like the appointment scheduled at [facility]. She provided their fax [phone]. Dr. Austin order is pending your approval. Yvonne will you please schedule per patient request. She does prefer a.m. appointments but will take any time that is offered. Thanks Windy Jiang RN [facility] 02-07-2024 History of Presen t illness Narrative Images from the original note were not included. Radiation Oncology - New Patient/Consult Note PATIENT NAME: Minal Caputo PATIENT Signed: Josef Austin MD I spent a total of 60 minutes on the date of the service which included preparing to see the patient, [id number] patient care, and counseling and educating the patient/family/caregiver. This document has been created with the use of voice recognition technology. It may contain inaccuracies, misspellings, inaccurate syntax or inappropriate word context that are a result of the inadequacies/shortcomings of said technology/software. documented in this encounter [facility] 02-07-2024 Nurse Note Radiation Therapy - Patient Education Note PATIENT NAME: Minal Caputo PATIENT February 07, 2024 [facility] FACILITY/LOCATION: [facility] READINESS TO LEARN Cognitive Ability: Alert [...] need for social work, van service, and retail seasonal specialist. Patient has an Onbody or Implanted device: No Signed by: Windy Jiang RN [facility] 02-07-2024 Nurse Note Radiation Therapy - Patient Education Note PATIENT NAME: Minal Caputo PATIENT February 07, 2024 [facility] FACILITY/LOCATION: [facility] READINESS TO LEARN Cognitive Ability: Alert [...] need for social work, van service, and retail seasonal specialist. Patient has an Onbody or Implanted device: No Signed by: Windy Jiang RN documented in this encounter [facility] 02-07-2024 Nurse Note Pacemaker/Defibrillator?N Previous Cancer(s)?N Previous Radiation?N Lupus/Scleroderma?N On body monitoring device?N [facility] 02-07-2024 Nurse Note Pacemaker/Defibrillator?N Previous Cancer(s)?N Previous Radiation?N Lupus/Scleroderma?N On body monitoring device?N documented in this encounter [facility] 02-07-2024 History of Presen t illness Narrative MINAL CAPUTO [id number] 02/07/2024 [facility] Radiation Oncology Department SIMULATION NOTE DATE OF SIMULATION: 02/07/2024 THERAPIST: Vonda Hewitt MACHINE: [employer] DIAGNOSIS: Malignant neoplasm of [id number] AREA: left cw CONTRAST: None Consent in [...] TANYA 48:54 AM documented in this encounter [facility] 02-07-2024 History of Presen t illness Narrative MINAL CAPUTO [id number] 02/07/2024 [facility] Department of Radiation Oncology Treatment Planning [...] M.D. 44:34 AM documented in this encounter [facility] 02-06-2024 Telephone encounter Note Nel: can you get records from [facility] Turk please Thanks Yvonne Baumann RN [facility] Work Phone: 02-06-2024 History of Presen [...] begin daily therapy documented in this encounter [facility] 02-06-2024 Miscellaneous Notes Nel: can you get records from [facility] Burke please Thanks Yvonne Baumann RN Patient is called and scheduled for tommorow. Can you please assist in getting Minal scheduled for radiation therapy here? See note from Yvonne Baumann below. Thanks, Yessi Caban Pt calls stating she is scheduled to start radiation at [facility], however she has changed her mind and would like to come here instead. Please schedule [facility] as back on 01/20 Dr Neri had recommended radiation therapy [facility]. Thanks Yvonne Baumann RN documented in this encounter [facility] 02-06-2024 Telephone encounter Note Patient is called and scheduled for tommorow. [facility] 02-06-2024 Telephone encounter Note Can you please assist in getting Minal scheduled for radiation therapy here? See note from Yvonne Baumann below. Thanks, Yessi Caban [facility] 02-06-2024 Telephone encounter Note Pt calls stating she is scheduled to start radiation at [facility], however she has changed her mind and would like to come here instead. Please schedule [facility] as back on 01/20 Dr Neri had recommended radiation therapy [facility]. Thanks Yvonne Baumann, RN [facility] 01-29-2024 Telephone encounter Note Called [facility] spoke with Lolis. Patient saw Dr Aponte on 01/27 and is scheduled for a SIM and follow up on 02/09. Vonda Ballesteros [facility] 01-29-2024 Miscellaneous Notes Called [facility] spoke with Lolis. Patient saw Dr Aponte on 01/27 and is scheduled for a SIM and follow up on 02/09. Vonda Ballesteros Records faxed to [facility]. Nel: Information ready for you. Vonda Ballesteros Radiation Referral [facility] Tobi Neumann/Alin: Can you please refer patient and follow up? Closer to home for patient. Thanks! Nery Simeon documented in this encounter [facility] 01-28-2024 History of Presen t illness Narrative Minal unaccompanied for scheduled consult with Dr Aponte per referral from Dr Neir/Med Onc 07/29/2023 Left mastectomy performed at by Dr. Castillo Prior chemo consisting of 2 courses of DDAC (D/C due to s/e) and Taxol x 2 (also D/C due to s/e) Last dose of Taxol 12/31/2023 Patient advised to D/C methotrexate at this time, until 1 month after completion of radiation (last dose MTX was 01/26/2024) RN placed call to Dr Errol Barry MD/Denture Technician with this update Referral to [facility] for Lymphedema and other potential issues CT/Sim scheduled for next week to plan IMRT 25 Fx Femara anticipated to after completion of radiation documented in this encounter [facility] 01-28-2024 History of Presen t illness Narrative Images from the original note were not included. [address] [place] [phone] Patient: Minal Caputo Date of : [...] duplex lwr bilateral; Future Seropositive rheumatoid arthritis ([facility]) Severe obesity (BMI >= 40) ([facility]) 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 ([facility]) - CT angiogram chest; Future - Vas [...] patient SUNNY JENKINS MD Family Medicine Physician [facility] 01/28/24 This note was completed with voice recognition software. The document was reviewed for errors however some may still be present. Please do not hesitate to contact/Epic msg the author to verify any questions/concerns. documented in this encounter [facility] 01-22-2024 Telephone encounter Note Pt notified Yvonne Baumann RN [facility] Work Phone: 01-22-2024 Miscellaneous Notes Pt notified Yvonne Baumann RN ----- Message from Mitch Neri MD sent at 01/21/2024 3:35 PM EDT ----- Please let her know that LFT's are better documented in this encounter [facility] 01-22-2024 Telephone encounter Note ----- Message from Mitch Neri MD sent at 01/21/2024 3:35 PM EDT ----- Please let her know that LFT's are better [facility] 01-22-2024 Telephone encounter Note Records faxed to [facility]. [facility] 01-22-2024 Telephone encounter Note Nel: Information ready for you. Vonda Ballesteros [facility] 01-21-2024 Telephone encounter Note Radiation Referral [facility] Tobi Neumann/Alin: Can you please refer patient and follow up? Closer to home for patient. Thanks! Nery Simeon [facility] 01-21-2024 History of Presen t illness Narrative PATIENT NAME: Minal Caputo CLINIC NO.: [id number] ATTENDING PHYSICIAN: Mitch Neri MD DATE OF [...] cm, LVI present, Margins Negative, ER 80%, DC 5% and Her-2 IHC-0 Germline testing 07/2023: [...] grade 1 invasive lobular carcinoma ER 80%, DC 5% and HER2/akash with IHC 0. A [...] elected to transfer her care to the [facility] and underwent a L breast [...] Range Status 01/21/2024 8.2 % Final Abs Garza Date Value Ref Range Status 01/21/2024 0.52 [...] Histologic Type Invasive lobular carcinoma Histologic Grade (Shannon Histologic Score) Glandular (Acinar) / Tubular Differentiation [...] Examined (sentinel and non-sentinel) 4 Number of [place] Nodes Examined 4 pTNM CLASSIFICATION (AJCC 8th [...] invasive lobular carcinoma, grade 2, ER 80%, DC 5% and HER2/akash negative, IHC 0, cancer [...] to receive radiation closer to home in [place]. After radiation therapy we will proceed with [...] do not hesitate to contact me at [phone]. Mitch Neri MD Hematology/Medical Oncology [facility]ine Hightower spent a total of 30 minutes on the date of the service which included preparing to see the patient, [id number] patient care, completing clinical documentation, obtaining and/or reviewing separately obtained history, performing a medically appropriate examination, and counseling and educating the patient/family/caregiver. CC: Sunny Jenkins MD documented in this encounter [facility] 01-15-2024 Telephone encounter Note Note scanned. [facility] 01-15-2024 Miscellaneous Notes Note scanned. Pt is scheduled to see Dr Baer today at 1 for abscess in her groin. Nel: can you keep an eye on records please. Thanks Yvonne Baumann, MALORIE documented in this encounter [facility] 01-15-2024 Telephone encounter Note Pt is scheduled to see Dr Baer today at 1 for abscess in her groin. Nel: can you keep an eye on records please. Thanks Yvonne Baumann RN [facility] Work Phone: 01-14-2024 History of Presen t illness Narrative PATIENT NAME: Minal Caputo CLINIC NO.: [id number] ATTENDING PHYSICIAN: Mitch Neri MD DATE OF SERVICE: January 14, 2024 (Elements copied from Dr. Neri's note dated January 07, 2024, have been reviewed and updated where appropriate, and all reflect current assessment and medical decision making during today's encounter, January 14, 2024) CC: Follow up Diagnosis: L Breast Cancer: pT3,N3,M0, Grade 2 ILC, 6.3 cm, LVI present, Margins Negative, ER 80%, DC 5% and Her-2 IHC-0 Germline testing 07/2023: [...] grade 1 invasive lobular carcinoma ER 80%, DC 5% and HER2/akash with IHC 0. A [...] elected to transfer her care to the [facility] and underwent a L breast [...] Range Status 01/14/2024 8.0 % Final Abs Garza Date Value Ref Range Status 01/14/2024 0.35 [...] Examined (sentinel and non-sentinel) 4 Number of [place] Nodes Examined 4 pTNM CLASSIFICATION (AJCC 8th [...] invasive lobular carcinoma, grade 2, ER 80%, DC 5% and HER2/akash negative, IHC 0, cancer [...] which included preparing to see the patient, [id number] patient care, completing clinical documentation, obtaining and/or reviewing separately obtained history, performing a medically appropriate examination, counseling and educating the patient/family/caregiver, ordering medications, tests, or procedures, communicating with other HCPs (not separately reported), independently interpreting results (not separately reported), communicating results to the patient/family/caregiver, and care coordination (not separately reported). documented in this encounter [facility] 01-09-2024 Telephone encounter Note [facility]. Patient is scheduled to see Dr Baer on 01/14 @ 1:30. Vonda Ballesteros [facility] 01-09-2024 Miscellaneous Notes Called [facility] office. Patient is scheduled to see Dr Baer on 01/14 @ 1:30. Vonda Ballesteros Records faxed to Dr. Kim/Arturo. Nel: Information ready for you. Vonda Ballesteros Return for Dr. iKm and or Arturo WALLACE skin abscess Nel/Alin: Can you please refer patient and follow up? She will be a new patient. Thanks! Nery Simeon documented in this encounter [facility] 01-08-2024 Telephone encounter Note Records faxed to Dr. Kim/Arturo. [facility] 01-08-2024 Telephone encounter Note Nel: Information ready for you. Vonda Ballesteros [facility] 01-07-2024 Telephone encounter Note Return for Dr. Kim and or Arturo GONSALEZ skin abscess Nel/Alin: Can you please refer patient and follow up? She will be a new patient. Thanks! Nery Simeon [facility] 01-07-2024 History of Presen t illness Narrative PATIENT NAME: Minal Caputo CLINIC NO.: [id number] ATTENDING PHYSICIAN: Mitch Neri MD DATE OF [...] cm, LVI present, Margins Negative, ER 80%, DC 5% and Her-2 IHC-0 Germline testing 07/2023: [...] grade 1 invasive lobular carcinoma ER 80%, DC 5% and HER2/akash with IHC 0. A [...] elected to transfer her care to the [facility] and underwent a L breast [...] Range Status 01/07/2024 4.1 % Final Abs Garza Date Value Ref Range Status 01/07/2024 0.31 [...] Examined (sentinel and non-sentinel) 4 Number of [place] Nodes Examined 4 pTNM CLASSIFICATION (AJCC 8th [...] invasive lobular carcinoma, grade 2, ER 80%, DC 5% and HER2/akash negative, IHC 0, cancer [...] do not hesitate to contact me at [phone]. Mitch Neri MD Hematology/Medical Oncology [facility] Hightower spent a total of 30 minutes on the date of the service which included preparing to see the patient, [id number] patient care, completing clinical documentation, obtaining and/or reviewing separately obtained history, performing a medically appropriate examination, and counseling and educating the patient/family/caregiver. CC: Sunny Jenkins MD documented in this encounter [facility] 12-31-2023 History of Presen t illness Narrative Summary: IRB [id number] Informed Consent CASE [id number] (IRB [id number]): Tissue [...] Clinical Research Nurse documented in this encounter [facility] 12-24-2023 History of Presen t illness Narrative PATIENT NAME: Minal Caputo CLINIC NO.: [id number] ATTENDING PHYSICIAN: Mitch Neri MD DATE OF [...] cm, LVI present, Margins Negative, ER 80%, DC 5% and Her-2 IHC-0 Germline testing 07/2023: [...] grade 1 invasive lobular carcinoma ER 80%, DC 5% and HER2/akash with IHC 0. A [...] elected to transfer her care to the [facility] and underwent a L breast [...] Range Status 12/24/2023 9.4 % Final Abs Garza Date Value Ref Range Status 12/24/2023 0.57 [...] Examined (sentinel and non-sentinel) 4 Number of [place] Nodes Examined 4 pTNM CLASSIFICATION (AJCC 8th [...] invasive lobular carcinoma, grade 2, ER 80%, DC 5% and HER2/akash negative, IHC 0, cancer [...] do not hesitate to contact me at [phone]. Mitch Neri MD Hematology/Medical Oncology [facility] Francine I spent a total of 30 minutes on the date of the service which included preparing to see the patient, efhz-nr-[id number] patient care, completing clinical documentation, obtaining and/or reviewing separately obtained history, performing a medically appropriate examination, and counseling and educating the patient/family/caregiver. CC: Sunny Jenkins MD documented in this encounter [facility] 12-24-2023 History of Presen t illness Narrative FOLLOW UP I have communicated my name and active licensure. The patient's identity and physical location were verified at the time of this visit. Either the patient or their legal agricultural sales representative has been informed of the risks and benefits of -- and alternatives to -- treatment through a remote evaluation and consents to proceed with the evaluation remotely. HPI: Minal Caputo is a 68 year old female with a history of left breast ILC ER+, DC low positive and HER2 negative, diagnosed in [...] No history of dysuria, frequency or incontinence COMPUTER SYSTEMS SUPPORT SPECIALIST: Negative for abnormal vaginal bleeding, abnormal vaginal [...] a history of left breast ILC ER+, DC low positive and HER2 negative, diagnosed in [...] Halina Carbajal APRN.CNP documented in this encounter [facility] 12-24-2023 Evaluation note Diagnosis Invasive lobular carcinoma of breast in female (HCC)- Primary Stage 3a chronic kidney disease (HCC) documented in this encounter [facility]04-16-2024 Miscellaneous Notes* Telephone Encounter - Kalyani [...] being sent to pharmacy [facility] encounter Note* Telephone Encounter - [...] due to how bad the infection is. [facility]04-16-[facility] Telephone encounter Note* Telephone Encounter - MIR Sheppard - 12/10/2023 11:29 AM EDT Alternative medication sent in [facility] [id number] Telephone encounter Note* Telephone Encounter - Kalyani Rachel CMA - 12/10/2023 11:29 AM EDT Called patient to let her know about RX being sent to pharmacy [facility] [id number] History of Present illness Narrative* Brianna Renner APRN.NEY - 12/10/2023 9:58 AM EDT [id number] ATTENDING PHYSICIAN: Mitch Neri MD DATE OF SERVICE: December 10, 2023 (Elements copied from Cathy Templeton's note dated December 03, 2023, have been reviewed and updated whereappropriate, and all reflect current assessment and medical decision making during today's encounter, December 10, 2023.) Cc: Follow up and Taxol. Diagnosis: Left Breast Cancer: pT3,N3,M0, Grade 2 ILC, 6.3 cm, LVI present, Margins Negative, ER 80%, DC 5% and Her-2 IHC-0 Germline testing 07/2023: [...] grade 1 invasive lobular carcinoma ER 80%, DC 5% and HER2/akash with IHC 0. A [...] elected to transfer her care to the [facility] and underwent a L breast [...] Range Status 12/10/2023 4.2 % Final Abs Garza Date Value Ref Range Status 12/10/2023 0.32 [...] Histologic Type Invasive lobular carcinoma Histologic Grade (Shannon Histologic Score) Glandular (Acinar) / Tubular Differentiation [...] Examined (sentinel and non-sentinel) 4 Number of [place] Nodes Examined 4 pTNM CLASSIFICATION (AJCC 8th [...] invasive lobular carcinoma, grade 2, ER 80%, DC 5% and HER2/akash negative, IHC 0, cancer [...] as scheduled. PE continue NOAC Brianna Renner APRN.VENDOR MANAGEMENT CONSULTANT CC: Sunny Jenkins MD I spent a total of 30 minutes on the date of the service which included preparing to see the patient, [id number]-[id number] patient care, completing clinical documentation, obtaining and/or reviewing separately obtained history, performing a medically appropriate examination, counseling and educating the pat ient/family/caregiver, ordering medications, tests, or procedures, independently interpreting results (not separately reported), and communicating results to the patient/family/caregiver. documented [facility] Miscellaneous Notes* Telephone Encounter - Mitch [...] advise Yvonne Baumann RN documented in this encounterC[facility] Miscellaneous Notes* Telephone Encounter - Yvonne [...] protocol. Yvonne Baumann RN documented in this encounterC[facility] History of Present illness Narrative* Yvonne [...] N/A Yvonne Baumann RN documented in this encounterC[facility] History of Present illness Narrative* Cathy Templeton PA-C - 12/03/2023 11:00 AM EDT PATIENT NAME: Minal Caputo CLINIC NO.: [id number] ATTENDING PHYSICIAN: Mitch Neri MD DATE OF [...] cm, LVI present, Margins Negative, ER 80%, DC 5% and Her-2 IHC-0 Germline testing 07/2023: [...] grade 1 invasive lobular carcinoma ER 80%, DC 5% and HER2/akash with IHC 0. A [...] elected to transfer her care to the [facility] and underwent a L breast [...] Range Status 12/03/2023 9.2 % Final Abs Garza Date Value Ref Range Status 12/03/2023 0.54 [...] Examined (sentinel and non-sentinel) 4 Number of [place] Nodes Examined 4 pTNM CLASSIFICATION (AJCC 8th [...] invasive lobular carcinoma, grade 2, ER 80%, DC 5% and HER2/akash negative, IHC 0, cancer [...] in 1 week for week 2. PE mercedes Templeton PA-C CC: Sunny Jenkins MD I spent a total of 30 minutes on the date of the service which included preparing to see the patient, [id number]-[id number] patient care, completing clinical documentation, obtaining and/or reviewing separately obtained history, performing a medically appropriate examination, counseling and educating the pat ient/family/caregiver, ordering medications, tests, or procedures, independently interpreting results (not separately reported), and communicating results to the patient/family/caregiver. documented in this encounterC[facility] History of Present illness Narrative* Leo Gerard, GIN FEEDER-VENDOR MANAGEMENT CONSULTANT - 11/27/2023 2:45 PM EDT Images from [...] prescribed by her p nicolasa PCP at [facility]). She has currently taken Fluconazole [...] nursing note reviewed. Exam conducted with a foreign law consultant present. Constitutional: Appearance: Normal appearance. HENT: Head: [...] daily. MIR Sheppard 11/27/232253 documented [facility] History of Present illness Narrative* Katherine Kaiser RN - 11/26/2023 12:00 PM EDT Pt is not getting treatment today. Pt was de-accessed and sent home. Katherine Kaiser RN documented in this encounterC[facility] History of Present illness Narrative* Mitch Neri MD - 11/26/2023 11:42 AM EDT PATIENT NAME: Minal Francoisjalenhe CLINIC NO.: [id number] ATTENDING PHYSICIAN: Mitch Neri MD DATE OF [...] cm, LVI present, Margins Negative, ER 80%, DC 5% and Her-2 IHC-0 Germline testing 07/2023: [...] grade 1 invasive lobular carcinoma ER 80%, DC 5% and HER2/akash with IHC 0. A [...] elected to transfer her care to the [facility] and underwent a L breast [...] Range Status 11/26/2023 6.9 % Final Abs Garza Date Value Ref Range Status 11/26/2023 0.47 [...] Examined (sentinel and non-sentinel) 4 Number of [place] Nodes Examined 4 pTNM CLASSIFICATION (AJCC 8th [...] invasive lobular carcinoma, grade 2, ER 80%, DC 5% and HER2/akash negative, IHC 0, cancer [...] do not hesitate to contact me at [phone]. Mitch Neri MD Hematology/Medical Oncology [facility] Francine I spent a total of 30 minutes on the date of the service which included preparing to see the patient, [id number] patient care, completing clinical documentation, obtaining and/or reviewing separately obtained history, performing a medically appropriate examination, and counseling and educating the patient/family/caregiver. CC: Sunny Jenkins MD documented in this encounterC[facility]04-[facility] History of Present illness Narrative* Nona [...] Lomax MS, RDN, LD documented in this encounterC[facility]03-[facility]24 Miscellaneous Notes* Telephone Encounter - Merary Resendiz CNA - 11/19/2023 4:20 PM EDT [facility] requested a verbal order to continue Longterm and provider will follow patient? * Telephone Encounter - Sunny Jenkins MD - 11/19/2023 4:20 PM EDT Ok to follow Please call and notify SUNNY Chris MD 11/20/23 * Telephone Encounter - Merary Resendiz CNA - 11/19/2023 4:20 PM EDT Notified. documented in this encounterTol[facility]03-26-[facility]24 Telephone encounter Note* Telephone Encounter - Merary Resendiz CNA - 11/19/2023 4:[facility] and provider will follow patient? [facility] Telephone encounter Note* Telephone Encounter - Sunny Jenkins MD - 11/19/2023 4:20 PM EDT Ok to follow Please call and notify SUNNY Chris MD 11/20/23 [facility]03-[facility] Telephone encounter Note* Telephone Encounter - Merary Resendiz CNA - 11/19/2023 4:20 PM EDT Notified. [facility]03-[facility] History of Present illness Narrative* MIR [...] discharge follow up. She was admitted to [facility] on 11/05/2023 for provoked pulmonary embolism likely secondary to cancer. She was also newly diagnosed with diastolic dysfunction and heart failure. She was previously on 20 mg of lasix once da\taurus, but it was increased to 40 mg once daily at discharge from [place]. She was also sent home on 2 [...] She is following with Dr. Kramer at [facility] for oncology. She is status post masectomy [...] BID. Coupon card provided today along with [facility] pharmacy # for support d/t medicare. . [...] pulmonary emboli without acute cor pulmonale (CMS-HCC) Diuresis - furosemide (LASIX) 40 mg tablet; Take 1 tablet (40 mg total) by mouth 2 (two) times a day before meals for 14 days. - Basic Metabolic Panel; Future Hospital discharge follow-up Diastolic dysfunction with acute on chronic heart failure ([facility]-HCC) Primary hypertension Primary invasive malignant neoplasm of female breast, left (CMS-HCC) Other orders - potassium chloride (K-TAB,KLOR-CON) 10 MEQ CR tablet; Take 1 tablet (10 mEq total) by mouth in the morning and 1 tablet (10 mEq total) before bedtime. MIR Sheppard 11/17/232321 documented in this encounterToledo Hospital03-18-2024 Miscellaneous Notes* Telephone Encounter - Yvonne [...] Thanks Yvonne Baumann RN documented in this encounterCleveland [facility]03-[facility]-2024 Miscellaneous Notes* Telephone Encounter - Yvonne Baumann RN - 11/11/2023 3:00 PM EDT DISCHARGE CALL BACK Today's date: November 11, 2023 Notified of Pt discharge by: previous telephone encounter [place] [facility] [place] Primary Cancer Diagnosis: Breast Cancer Admitting Diagnosis: PE, acute on chronic diastolic hear failure Discharge Summary/SBAR reviewed: Yes Handoff Discussed with [facility]er: No, unavailable Psychosocial Risk Factors: None If [...] appointment: No will send new script of [facility] so they can begin authorization [...] 11/18. Patient reminded of follow-up appointment with [facility] provider, Dr Neri on 11/19/23: Yes Discussed [...] YES Yvonne Baumann RN documented in this encounterC[facility]03-18-2024 Miscellaneous Notes* Telephone Encounter - Perla [...] time. Yvonne Baumann RN documented in this encounterCleveland Clinic [facility]03-18-2024 Miscellaneous Notes* Telephone Encounter - Will Dean CMA - 11/11/2023 9:11 AM EDT Patient requesting refill. Patient stated [facility] requested her to double her current dose of 20 mg. * Telephone Encounter - Merary Resendiz CNA - 11/11/2023 9:11 AM EDT Minal called to inform she is out of medication and needs this today. documented in this encounterToledo Hospital03-18-2024 Telephone encounter Note* Telephone Encounter - Will Dean CMA - 11/11/2023 9:11 AM EDT Patient requesting refill. Patient stated [facility] requested her to double her current dose of 20 mg. [facility]03-[facility] Telephone encounter Note* Telephone Encounter - Merary Resendiz CNA - 11/11/2023 9:11 AM EDT Minal called to inform she is out of medication and needs this today. [facility]03-13-[facility] Miscellaneous Notes* Telephone Encounter - Steph [...] also informed us she is currently in [facility] and was admitted. The nurse was in the room at the time I explained results and they went ahead and scheduled a SHEBA and at that time would like to discuss results. documented in this encounterToledo Hospital03-13-2024 Telephone encounter Note* Telephone Encounter - [...] which patient should start. SUNNY JENKINS MD [facility]03-13-[facility]24 Telephone encounter Note* Telephone Encounter - Steph Rendon CMA - 11/06/2023 9:51 AM EDT Called patient and informed her. She stated understanding and also informed us she is currently in [facility] and was admitted. The nurse was in the room at the time I explained results and they went ahead and scheduled a SHEBA and at that time would like to discuss results. [facility]03-12-[facility] Miscellaneous Notes* Telephone Encounter - Yvonne Baumann RN - 11/05/2023 4:11 PM EDT Pt notified of scan results and will chicken picker medication today. Yvonne Baumann RN * Telephone Encounter - Yvonne Baumann RN - 11/05/2023 3:[address] Neri received a call from radiologist stating pt has a PE on scan. Dr Neri would like tostart pt on Eliquis Please sign pending script. Yvonne Baumann RN documented in this encounterCleveland Clinic [facility]03-12-2024 History of Present illness Narrative* Brianna Renner, LENA.VENDOR MANAGEMENT CONSULTANT - 11/05/2023 9:56 AM EDT PATIENT NAME: Minal Caputo CLINIC NO.: [id number] ATTENDING PHYSICIAN: Mitch Neri MD DATE OF [...] cm, LVI present, Margins Negative, ER 80%, DC 5% and Her-2 IHC-0. Germline testing 07/2023: [...] grade 1 invasive lobular carcinoma ER 80%, DC 5% and HER2/akash with IHC 0. A [...] elected to transfer her care to the [facility] and underwent a L breast [...] Range Status 11/05/2023 5.4 % Final Abs Garza Date Value Ref Range Status 11/05/2023 0.38 [...] Histologic Type Invasive lobular carcinoma Histologic Grade (Shannon Histologic Score) Glandular (Acinar) / Tubular Differentiation [...] Examined (sentinel and non-sentinel) 4 Number of [place] Nodes Examined 4 pTNM CLASSIFICATION (AJCC 8th [...] invasive lobular carcinoma, grade 2, ER 80%, DC 5% and HER2/akash negative, IHC 0, cancer [...] concerns please do not hesitate to contact Enrique Saleem [phone]. Brianna Renner APRN.VENDOR MANAGEMENT CONSULTANT Hematology/Medical Oncology [facility] CC: Sunny Jenkins MD I spent a total of 30 minutes on the date of the service which included preparing to see the patient, [id number] patient care, completing clinical documentation, obtaining and/or reviewing separately obtained history, performing a medically appropriate examination, counseling and educating the pat ient/family/caregiver, ordering medications, tests, or procedures, independently interpreting results (not separately reported), and communicating results to the patient/family/caregiver. documented in this encounterCleveland Clinic [facility]03-12-2024 Nurse Note* Kortney Ho - 11/05/2023 9:50 AM EDT Patient is very winded. She states that she is all the time now. Started a few days ago. documented in this encounterCleveland Clinic [facility]03-08-2024 Miscellaneous Notes* Telephone Encounter - Merary Resendiz CNA - 11/01/2023 9:30 AM EST She requested a refill on her losartan, also. Which is not on the patient list. documented in this encounterToledo Hospital03-08-2024 Telephone encounter Note* Telephone Encounter - Merary Resendiz CNA - 11/01/2023 9:30 AM EST She requested a refill on her losartan, also. Which is not on the patient list. [facility]02[facility] History of Present illness Narrative* Gabby [...] Past Histories independently gathered by the clinical telecommunications support and the remaining scribed note accurately describes my personal service to the patient. documented in this encounterCleveland Clinic [facility]02-28-2024 Miscellaneous Notes* Telephone Encounter - Laura Lowry - 10/23/2023 4:40 PM EST Paperwork faex to Lydai @ [phone]. Laura Lowry * Telephone Encounter - Laura Lowry - 10/22/2023 11:18 AM EST STD paperwork for Lydia has been completed and placed in folder to be signed. Laura Lowry documented in this encounterCleveland Clinic [facility] Hospital02-28-2024 History of Present illness Narrative* Deepika Garcia LSW - 10/23/2023 3:51 PM EST SOCIAL WORK FOLLOW UP NOTE: [facility] Date of service:10/23/23 Minal Campos Chiquitavazqueztonya is being seen for a follow up [...] as appropriate. BABS Canales documented in this encounterCleveland Clinic [facility] Hospital02-27-2024 History of Present illness Narrative* Deepika Garcia LSW - 10/22/2023 4:04 PM EST SOCIAL WORK FOLLOW UP NOTE: [facility] Date of service:10/22/23 Minal Caputo [...] as appropriate. BABS Canales documented in this encounterCleveland Clinic [facility] Hospital02-27-2024 History of Present illness Narrative* Nell Cid RN - 10/22/2023 10:07 AM ESTSummary: Doxorubicin administration Doxorubicin administered via right chest infusaport without complications. Doxorubicin administeredvia free flowing normal saline with positive blood return maintained throughout infusion. Pt deniedany pain or discomfort at site. Lilia Cid RN,BSN,OCN documented in this encounterCleveland Clinic [facility]02-27-2024 History of Present illness Narrative* Mitch Neri MD - 10/22/2023 9:38 AM EST PATIENT NAME: Minal Caputo CLINIC NO.: [id number] ATTENDING PHYSICIAN: Mitch Neri MD DATE OF [...] cm, LVI present, Margins Negative, ER 80%, DC 5% and Her-2 IHC-0 Germline testing 07/2023: [...] grade 1 invasive lobular carcinoma ER 80%, DC 5% and HER2/akash with IHC 0. A [...] elected to transfer her care to the [facility] and underwent a L breast [...] Range Status 10/22/2023 4.4 % Final Abs Garza Date Value Ref Range Status 10/22/2023 0.54 [...] Histologic Type Invasive lobular carcinoma Histologic Grade (Shannon Histologic Score) Glandular (Acinar) / Tubular Differentiation [...] Examined (sentinel and non-sentinel) 4 Number of [place] Nodes Examined 4 pTNM CLASSIFICATION (AJCC 8th [...] invasive lobular carcinoma, grade 2, ER 80%, DC 5% and HER2/akash negative, IHC 0, cancer [...] do not hesitate to contact me at [phone]. Mitch Neri MD Hematology/Medical Oncology [facility] Francine Hightower spent a total of 30 minutes on the date of the service which included preparing to see the patient, [id number] patient care, completing clinical documentation, obtaining and/or reviewing separately obtained history, performing a medically appropriate examination, and counseling and educating the patient/family/caregiver. CC: Sunny Jenkins MD documented in this encounterCleveland Clinic Med[facility]02-27-2024 History of Present illness Narrative* Nona [...] Comments: weight fluctuations expected given diuretic therapy [place] Body Weight: 46.9kg Estimated kilocalorie needs: 9604-3580 kilocalories determined by 30-35 kcal/kg Estimated protein needs: 47-70 grams determined by 1.0-1.5 g/kg [place] weight Estimated fluid needs: ~2988-6954 milliliters based on 1 mL per kcal [...] Lomax MS, RDN, LD documented in this encounterCleveland Clinic Medina Hospital02-19-2024 Miscellaneous Notes* Telephone Encounter - Nery [...] Thanks Yvonne Baumann RN documented in this encounterCleveland Clinic Medina Hospital02-16-2024 Miscellaneous Notes* Telephone Encounter - Laura Lowry - 10/11/2023 12:[address] labs for appt/tx on 10/15. Laura Lowry documented in this encounterCleveland Clinic Medina Hospital02-15-2024 Miscellaneous Notes* Telephone Encounter - Kendal Watts RN - 10/10/2023 2:56 PM EST Crystal from [facility] notes that they received an order from Dr Neri for a compression sleeve. Requesting clinical documentation. Office notes from 09/20/23 (Plastic Surgery) and 09/17/23 (Dr Neri) faxed to [phone]. Kendal Watts RN documented in this encounterCleveland Clinic Medina Hospital02-14-2024 History of Present illness Narrative* MIR Sheppard - 10/09/2023 10:30 AM EST Subjective Patient ID: Minal Caputo is a 67 y.o. female. HPI Minal presents to the office for sick visit. Patient's past medical history is significant for right breast mass, positive for ILC grade 1 carcinoma, she is [facility] and will begin chemotherapy for invasive [...] this for 7 days. MIR Sheppard 10/09/23 4352 documented in this encounterToledo Hospital02-12-2024 Miscellaneous Notes* Telephone Encounter - Cassia Mejia RN - 10/07/2023 9:37 AM EST Received call from Minal with concerns of extensive itching and redness around the port she had placed on September 27. Had patient send picture to IR coordinator email and reviewed image and concerns with Dr. Villafuerte, who originally placed port at [place]. Dr. CLARK spoke with patient's oncologist, Dr. Neri, and plan was put in place to postpone chemo treatment and take oral steroids for one week to see if rash and itching improves. Patient updated and agreeable to plan of care. documented in this encounterCleveland Clinic Med[facility] Hospital02-02-2024 Miscellaneous Notes* Telephone Encounter - Yessi [...] Thanks Yvonne Baumann RN documented in this encounterCleveland Clinic Medina Hospital02-01-2024 Instructions* Patient Instructions* Nell Martin PA-C - 09/26/2023 8:02 AM EST PATIENT PREOPERATIVE INSTRUCTIONS Lynda Villafuerte* has scheduled you for your procedure at this surgery center: [facility]: [phone] --[address] [place] [address]. Please enter through the entrance closest to [...] Procedures: - YOU MUST HAVE A RESPONSIBLE OUTSIDE SALES ADVERTISING EXECUTIVE TAKE YOU HOME. A HARDNESS INSPECTOR OR DIRECTOR OF REHABILITATION AND WELLNESS CANNOT BE MADE A RESPONSIBLE OUTSIDE SALES ADVERTISING EXECUTIVE. - We recommend that a responsible person [...] Advance Directive, please fax a copy to [phone] or email to for it to be [...] your chart that day. documented in this encounterCleveland Clinic Medina Hospital02-01-2024 History and physical note * Nell [...] Arm Weakness Copd (Chronic Obstructive Pulmonary Disease) ([facility]) Gerd (Gastroesophageal Reflux Disease) Primary Hypertension Peterson [...] fevers. Neuro: No history of TIA's, stroke, INVESTMENT OFFICER tumor, impaired sensorium, hemiplegia, paraplegia or quadraplegia. [...] or incontinence,, stones or chronic kidney disease COMPUTER SYSTEMS SUPPORT SPECIALIST: See HPI : N/A, Patient's last menstrual [...] Obtained from outside source and scanned into Generate Date: 09/18/2023 Result: LV systolic function normal [...] 2023 TIME: 7:57 AM documented in this encounterCleveland Clinic Medina Hospital01-31-2024 Miscellaneous Notes* Telephone Encounter - Citlali Sanchez CMA - 09/25/2023 9:59 AM EST Spoke with patient regarding NM HMT Molecular breast imaging localization test that Dr. Soto ordered on 07/10/23. Patient originally had it scheduled with [facility] on 08/08/23 but patient had cancelled it through her MyChart. Patient stated today that she [facility] and has already had a Mastectomy. Will inform Dr. Soto. documented in this encounterToledo Hospital01-31-2024 Telephone encounter Note* Telephone Encounter - Citlali Sanchez CMA - 09/25/2023 9:59 AM EST Spoke with patient regarding NM HMT Molecular breast imaging localization test that Dr. Soto ordered on 07/10/23. Patient originally had it scheduled with [facility] on 08/08/23 but patient had cancelled it through her MyChart. Patient stated today that she [facility] and has already had a Mastectomy. Will inform Dr. Soto. [facility]01-26-[facility]24 NoteHNO ID: [id number] Author: AGBBY COBIAN MD Service: ? Author Type: Physician [...] 4 weeks after surgery. 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 Do not [...] -Consult to lymphedema therapy placed. Please call [phone] to schedule, change, cancel or confirm an appointment. -Return to clinic in when CASSIDY drain meets criteria for removal, okay for home health to remove drain. -Follow up w/ Dr. Cobian in 4 weeks. -If experiencing wound complications or have any questions or concerns during business hours call [phone], option 3 or after hours (after 5 pm or on the weekend) call [phone] and ask for the plastic surgery resident / fellow monument erector for further instructions. If you have increasing [...] Past Histories independently gathered by the clinical telecommunications support and the remaining scribed note accurately describes my personal service to the patient.[facility]12-29-2023 Miscellaneous Notes* Telephone Encounter - Kalyani Rachel CMA - 08/23/2023 10:13 AM EST Doris from [facility] called into the office and just wanted to make you aware of pts blood pressure has been running between 150-180 for her diastolic number. And has also had increased edema in herlegs. documented in this encounterToledo Hospital12-29-2023 Telephone encounter Note* Telephone Encounter - Kalyani Rachel CMA - 08/23/2023 10:13 AM EST Doris from [facility] called into the office and just wanted to make you aware of pts blood pressure has been running between 150-180 for her diastolic number. And has also had increased edema in herlegs. [facility]12-12-2023 History of Present illness Narrative* Halina Carbajal APRN.VENDOR MANAGEMENT CONSULTANT - 08/06/2023 10:45 AM EST BREAST CANCER [...] out 60-80 cc daily. Pathology: SURGICAL PATHOLOGY: [id number] Order: [id number] Collected 07/29/2023 11:29 AM Status: Final result Visible to patient: No (scheduled for 08/11/2023 4:46 PM) Dx: Invasive lobular carcinoma of breast ... 0 Result Notes Component FINAL DIAGNOSIS A. Left breast, mastectomy: - Invasive lobular carcinoma, Shannon grade 2, at least 63 mm, negative [...] lymph node, 14 mm, with extranodal extension (08/26). C. Left axillary sentinel lymph node #2, excision: Metastatic carcinoma in one lymph node, 4 mm (08/26). D. Left axillary sentinel lymph node #3, excision: Metastatic carcinoma in one lymph node, 18 mm, with extranodal extension (08/26). E. Left axillary sentinel lymph node #4, [...] been determined by the performing laboratory within [facility] s [facility] [place] ([facility], [facility], [facility], [facility], [facility], [facility], or [facility]) in a manner consistent with CLIA [...] Examined (sentinel and non-sentinel) 4 Number of [place] Nodes Examined 4 pTNM CLASSIFICATION (AJCC 8th [...] on (outside case, slides reviewed at the [facility]) Comment(s) Invasive lobular carcinoma is present [...] concerns. Halina Carbajal APRN.NEY documented in this encounterCleveland Clinic Medina Hospital12-12-2023 Nurse Note* Shannan Schulz - 08/06/2023 8:42 AM EST Reviewed and confirmed with patient that there were no changes in the the nursing assessment and vitals that were completed on August 06, 2023 during previous provider appointment. Shannan Schulz documented in this encounterCleveland Clinic Medina Hospital12-12-2023 Nurse Note* Shannan Schulz - 08/06/2023 8:33 AM EST Additional intake questions: Has the patient had fever, nausea, vomiting, diarrhea, constipation, fatigue for > 1 week? No Does the patient have a decreased appetite? No Does patient want to see a Optical Element Coater? No (yes to any of above refer patient to schedulers for dietitian appointment) ) Does patient have any new or increased numbness or tingling of extremities? No Is patient interested in fertility information? No Does patient need any prescription refills? No Does patient have an advanced directive in place? No, Patient referred to [facility] documented in this encounterCleveland Clinic Medina Hospital12-12-2023 History of Present illness Narrative* Mendoza Yang MD - 08/06/2023 8:30 AM EST BREAST CANCER FOLLOW UP NOTE SERVICE DATE: August 05, 2023 Oncology History Overview Note Prev callbacks, no prev biopsies. [place] a right breast lump few months prior [...] core biopsy ILC grade 1, ER 80% DC 5% HER2 IHC 0 07/08/23: PET: fdg [...] Stage IB (cT2, cN0, cM0, G1, ER+, DC+, HER2-) - Signed by Mendoza Yang MD on 07/23/2023 08/06/2023 Cancer Staged Staging form: Breast, AJCC 8th Edition - Pathologic stage from 08/06/2023: pT3, pN1a, G2, ER+, DC+, HER2- - Signed by Mendoza Yang MD [...] Stage IB (cT2, cN0, cM0, G1, ER+, DC+, HER2-) - Signed by Mendoza Yang MD on 07/23/2023 - Pathologic stage from 08/06/2023: pT3, pN1a, G2, ER+, DC+, HER2- - Signed by Mendoza Yang MD [...] Yang MD Associate Staff Breast Medical Oncology [facility] cc: Rita Amanda MD I spent a total of 45 minutes on the date of the service which included preparing to see the patient, [id number]-yo-[id number] patient care, completing clinical documentation, obtaining and/or reviewing separately obtained history, and performing a medically appropriate examination. documented in this encounterCleveland Clinic Medina Hospital12-04-2023 History of Present illness Narrative* Giovani [...] radiation safety can be found usingthis link: [email or web address] [email or web address]%[email or web address]%20Medicine%[email or web address] SIGNATURE: GHISLAINE Romero) PATIENT NAME: Minal Caputo DATE: July 29, 2023 TIME: 8:30 AM PAGER/CONTACT #: documented in this encounterCleveland Clinic Medina Hospital12-01-2023 History and physical note * Maria M Mari APRN.VENDOR MANAGEMENT CONSULTANT - 07/26/2023 11:50 AM EST HISTORY AND [...] fevers. Neuro: No history of TIA's, stroke, INVESTMENT OFFICER tumor, impaired sensorium, hemiplegia, paraplegia or quadraplegia. [...] or incontinence,, stones or chronic kidney disease COMPUTER SYSTEMS SUPPORT SPECIALIST: See HPI : N/A, Patient's last menstrual [...] 418 QTC Calculation (Bazett) 444 Calculated P [place] 30 Calculated R [place] 13 Calculated T [place] 40 Impression NORMAL SINUS RHYTHM NORMAL ECG Confirmed by LAMINE ALY MD ([id number]) on 02/06/2023 10:07:03 AM Type of Monitor: [...] fusion rods again noted. RA (rheumatoid arthritis) ([facility]) Assessment: sero positive RA methotrexate and [...] 2023 TIME: 12:03 PM documented in this encounterCleveland Clinic Medina Hospital12-01-2023 Instructions* Patient Instructions* Maria M Mari APRN.CNP - 07/26/2023 11:17 AM EST PATIENT PREOPERATIVE INSTRUCTIONS Heather Castillo MD has scheduled you for your procedure at this surgery center: [facility] Scheduling Office: [phone] --[address] [place] [address]. Please read below carefully for your personalized [...] Procedures: - YOU MUST HAVE A RESPONSIBLE OUTSIDE SALES ADVERTISING EXECUTIVE TAKE YOU HOME. A HARDNESS INSPECTOR OR DIRECTOR OF REHABILITATION AND WELLNESS CANNOT BE MADE A RESPONSIBLE OUTSIDE SALES ADVERTISING EXECUTIVE. - We recommend that a responsible person [...] call the Saturday before. Your surgeon s health plan manager will tell you what time to call the office. - If you have not reached the departmental health plan manager by 5 P.M., call [phone] after 5 P.M. the day before your surgery. Please be aware that emergency situations arise, which may delay or change your surgical time. If this happens, we will notify you as soon as possible and regret any inconvenience. If you already have an Advance Directive, please fax a copy to [phone] or email to for it to be [...] your chart that day. documented in this encounterCleveland Clinic Medina Hospital11-29-2023 Miscellaneous Notes* Telephone Encounter - Leatha Ignacio RN - 07/24/2023 9:24 AM EST Received call back from patient's traffic engineering technician. Recommend holding methotrexate 07/28 and resuming 08/04. Patient notified. Leatha Ignacio RN July 24, 2023 9:25 AM documented in this encounterCleveland Clinic Medina Hospital11-28-2023 Nurse Note* Clarissa Tang LPN - 07/23/2023 12:31 PM EST Reviewed and confirmed with patient that there were no changes in the the nursing assessment and vitals that were completed on 07/23/2023 during previous provider appointment. Clarissa Tang LPN documented in this encounterCleveland Clinic Medina Hospital11-28-2023 History of Present illness Narrative* Nishant Sawyer MD - 07/23/2023 12:00 PM EST Radiation Oncology - New Patient/Consult Note PATIENT NAME: Minal Caputo PATIENT REQUESTING PROVIDER: Heather Castillo MD DIAGNOSIS: 67 year old female with infiltrating lobular carcinoma of the Left breast, centrally located, clinical stage T2N0, ER-positive (80%), DC-positive (5%), and Her2/akash not amplified, s/p biopsy. [...] FINAL DIAGNOSIS A. Breast, left, core biopsy ([id number]; 06/19/2023): ---Invasive lobular carcinoma, preliminary Shannon grade 1 (of 3), measuring at least 4.5 mm in greatest dimension. ---Please see comment. ER: POSITIVE (80%, strong) DC: POSITIVE (5%, moderate) HER2 IHC: NEGATIVE (0) [...] 68 Difficulty with anesthesia No Family History COMPUTER SYSTEMS SUPPORT SPECIALIST HISTORY: OB History T1 L0 SAB0 IAB0 [...] 5 - High cc: Rita Amanda MD ([facility]) [address] [place] [id number] [address] KitchenLynda [address] [facility] [id number] documented in this encounterCleveland Clinic Medina Hospital11-28-2023 History of Present illness Narrative* Nell [...] IV DATA: Not applicable SIGNED BY: RT Jeff(Junior) July 23, 2023 11:48 AM documented in this encounterCleveland Clinic Medina Hospital11-22-2023 Miscellaneous Notes* Addendum Note - Leatha Ignacio RN - 07/17/2023 12:12 PM ESTAddended by: LEATHA IGNACIO on: 07/17/2023 12:12 PM Modules accepted: Orders documented in this encounterCleveland Clinic Medina Hospital11-17-2023 Miscellaneous Notes* Telephone Encounter - Milton Tim RN - 07/12/2023 10:37 AM EST July 12, 2023 Message sent to genetics, patient is interested in having done. Milton Tim RN * Telephone Encounter - Milton Tim RN - 07/12/2023 10:25 AM EST July 12, 2023 Requested imaging/path slides from: left detailed message requesting a callback for imaging FACILITY: [facility] [address] [place] [address] Pathology Request date: July 12, 2023 FEDEX#: [id number] breast imaging requested [facility] [address] [place] [address] * Telephone Encounter - Milton Tim RN - 07/12/2023 10:08 AM EST July 12, 2023 Spoke with orlando yLnn via telephone and obtained the following information pertinent to upcoming appointment. Diagnosis: Final Pathologic Diagnosis Left breast core biopsy: INVASIVE MAMMARY CARCINOMA. Histologic Shannon grade 2 (tubule formation 3, nuclear pleomorphism 2, mitotic activity 1; total score 6/9). See comments. Date of Diagnosis: 06/19/23 Institution/Location of Diagnosis: [facility] [address] [place] [address] Referring Physician: Rita Amanda MD Breast MRI: [...] Cough: no Swelling in leg(s): no Ashkenazi Mosque Decent? No History of genetic testing? No genetic testing done, patient is interested Message was sent to Jesus Otoole to add patient for an appointment. Notes/Comments: Milton Tim RN July 12, 2023 documented in this encounterCleveland Clinic Medina Hospital06-16-2023 Miscellaneous Notes* Telephone Encounter - Leslie Forrester MA - 02/08/2023 8:53 AM EDT Greetings, Dr. Son reached out to Dr. Crow Sousa. He used to be with us as a total joint replacement doctor and moved his practice over to [facility]. He is willing to see you and do evaluation. His office number is [phone]. His office address is [address] [address]. He does also go to a office on [address] in [place] just confirm with them what office you will be at. Let us know if there is anything else we can help you with. Stay safe and well. Thank you Leslie with Dr. Son documented in this encounterCleveland Clinic Medina Hospital06-07-2023 History and physical note * Elida Craft PA-C - 01/30/2023 5:51 AM EDT Patient notes a recent ED visit. Her heart rate has been ranging from 23-127 bpm. She has been trying to get in to cardiology but was told there were no appointments until July 2023. I have called her assurance engineer's office and have secured her an appointment for next week. She is aware of the appointment. Message sent to [facility] schedulers to cancel virtual [facility] appointment and reschedule to an in-person appointment. Patient also provided schedulers number. Thank you, Elida Craft PA-C [facility] documented in this encounterCleveland Clinic Medina Hospital06-07-2023 Miscellaneous Notes* Telephone Encounter - Elida Craft PA-C - 01/30/2023 5:48 AM EDT Rigoberto, Please cancel her virtual PACC appointment and reschedule her for an in-person PACC visit due to her significant heart rate variations of 23-127 bpm. I have helped secure her a cardiology appointment prior to her procedure. DOS: 02/11/2023 Thank you, Elida Craft PA-C [facility] documented in this encounterCleveland Clinic Medina Hospital04-14-2023 Evaluation note* Encounter Date Diagnosis Assessment [...] the ER for worsening symptoms or concerns. [facility] Other 04-10-2023 Evaluation note* Encounter Date Diagnosis [...] treatment plan. Patient left in stable condition. [facility] Other 01-25-2023 Instructions* Patient Instructions* Nell Trujillo APRN.VENDOR MANAGEMENT CONSULTANT - 09/19/2022 7:13 AM EST Images from the original note were not included. Thank you for seeing me in clinic today. As we discussed, my recommendations are as follows: 1.EGD 2.Colonoscopy 3.Continue Nexium If you have any questions about the above treatment plan, please do not hesitate to call the officeor send me a Fann[place]ee message. Bowel Preparation Instructions for: Golytely, Nulytely, [...] If you do not have a responsible dolly driver (family member or friend) with you [...] your exam. 2 07/2019 documented in this encounterCleveland Clinic Medina Hospital01-25-2023 History and physical note * Nell [...] Abs Lymph 1.00 - 4.00 k/uL 3.81 Garza% % 7.9 Abs Garza <0.87 k/uL 0.68 Eosin% % 2.4 Abs [...] require surgery. Her last EGD was in 2015 and revealed a 3 [...] daily I spent more than 30 minutes dmuy-oo-opqp with the patient and over half the time was devoted to counseling and/or coordination of care. This note was dictated using [employer] speech recognition software and may contain some errors that were a result of the program not accurately transcribing what was dictated. Nell Trujillo APRN.NEY documented in this encounterCleveland Clinic Medina Hospital01-12-2023 History of Present illness Narrative* Micah Son DO - 09/06/2022 3:10 PM ESTAssociated Order(s): Large Joint Arthro/Inj: L hip joint Post-Procedure Diagnose(s): Primary osteoarthritis of left hip Patient presents for a left hip injection. Large Joint Arthro/Inj: L hip joint Informed Consent Consent Obtained: Verbal [place] Protocol A moment to CARE was completed. [...] Micah Son DO 09/06/2022 documented in this [facility]10-23-2022 Evaluation note* Encounter Date Diagnosis Assessment Notes Treatment Notes Treatment Clinical Notes May, Cough (ICD-10 - R05.9) May, COVID-19 (ICD-10 - U07.1) Today you tested positive for the COVID virus. This mean you need to follow all CDC quarantine guidelines found at coronavirus.[place].go v. It is important to rest, increase [...] weeks for the cough to go away [facility] Other 08-09-2022 History of Present illness Narrative* [...] infection or early failure. documented in this encounterCleveland Clinic Medina Hospital08-04-2022 History of Present illness Narrative* Hansa [...] Not applicable SIGNED BY: Hansa Franz RDMS, RVT March 29, 2022 4:31 PM documented in this encounterCleveland Clinic Medina Hospital08-01-2022 Miscellaneous Notes* Telephone Encounter - Nikko Brown - 03/26/2022 12:00 PM EDT Physical therapy order sent to [facility] via fax. documented in this encounterCleveland Clinic Medina Hospital07-29-2022 History of Present illness Narrative* Nayan [...] 2022 TIME: 3:48 PM documented in this encounterCleveland Clinic Medina Hospital07-25-2022 Instructions* Patient Instructions* Alberto Monsalve DO - 03/19/2022 4:28 PM EDT Do not take Naproxen or other NSAIDs while taking the oral steroid Medrol dose pack. Call [phone] to schedule appointment with Spine Surgery. documented in this encounterCleveland Clinic Medina Hospital07-25-2022 History of Present illness Narrative* Alberto Monsalve DO - 03/19/2022 3:37 PM EDT Images from the original note were not included. [facility] [place] [facility] - [facility] [...] Denies prior episodes. She was seen in [facility] 03/13/22 and transferred to [facility] on 03/14/22. Since then the right [...] L4-5 laminectomy and PSF -Thoracic scoliosis surgery [facility] Previously treated by: -Neurology Dr. Salmon while [...] 5/5 on the left. 3/5 right hand teacher drama strength, 5/5 on the left Limnology Teacher strength significantly weaker on right compare to le 5/5 bilateral shoulder abduction, elbow flexion, elbow extension, wrist extension, wrist flexion, digit abduction, teacher drama strength. SENSORY: sensation intact to light touch [...] which included preparing to see the patient, [id number]-vbud patient care, completing clinical documentation, obtaining and/or reviewing separately obtained history, performing a medically appropriate examination, counseling and educating the pat ient/family/caregiver, ordering medications, tests, or procedures, independently interpreting results (not separately reported), and communicating results to the patient/family/caregiver. SIGNATURE: Alberto Monsalve DO PATIENT NAME: Minal Caputo DATE: March 19, 2022 TIME: 3:37 PM [facility] of Past illness Narrative* Problem Noted Date Resolved Date Hypertensive urgency 03/14/2022 03/15/2022 AF (paroxysmal atrial fibrillation) 12/08/2021 03/14/2022 documented as of this encounter (statuses as of 03/15/2022) [address]20-2022 History of Past illness Narrative* Problem Noted Date Resolved Date Hypertensive urgency 03/14/2022 03/15/2022 AF (paroxysmal atrial fibrillation) 12/08/2021 03/14/2022 documented as of this encounter (statuses as of 03/23/2022) [facility] of [facility] illness Narrative* Problem Noted Date Resolved Date Hypertensive urgency 03/14/2022 03/15/2022 AF (paroxysmal atrial fibrillation) 12/08/2021 03/14/2022 documented as of this encounter (statuses as of 03/23/2022) [address]20-2022 History of Past illness Narrative* Problem Noted Date Resolved Date Hypertensive urgency 03/14/2022 03/15/2022 AF (paroxysmal atrial fibrillation) 12/08/2021 03/14/2022 documented as of this encounter (statuses as of 03/26/2022) [facility] of [facility] Narrative* Problem Noted Date Resolved Date Hypertensive urgency 03/14/2022 03/15/2022 AF (paroxysmal atrial fibrillation) 12/08/2021 03/14/2022 documented as of this encounter (statuses as of 03/30/2022) [address]20-2022 History of Past illness Narrative* Problem Noted Date Resolved Date Hypertensive urgency 03/14/2022 03/15/2022 AF (paroxysmal atrial fibrillation) 12/08/2021 03/14/2022 documented as of this encounter (statuses as of 04/03/2022) [address]20-2022 History of Past illness Narrative* Problem Noted Date Resolved Date Hypertensive urgency 03/14/2022 03/15/2022 AF (paroxysmal atrial fibrillation) 12/08/2021 03/14/2022 documented as of this encounter (statuses as of 04/03/2022) [address]20-2022 History of Past illness Narrative* Problem Noted Date Resolved Date Hypertensive urgency 03/14/2022 03/15/2022 AF (paroxysmal atrial fibrillation) 12/08/2021 03/14/2022 documented as of this encounter (statuses as of 04/05/2022) [address]20-2022 History of Past illness Narrative* Problem Noted Date Resolved Date Hypertensive urgency 03/14/2022 03/15/2022 AF (paroxysmal atrial fibrillation) 12/08/2021 03/14/2022 documented as of this encounter (statuses as of 09/06/2022) [address]20-2022 History of Past illness Narrative* Problem Noted Date Resolved Date Hypertensive urgency 03/14/2022 03/15/2022 AF (paroxysmal atrial fibrillation) 12/08/2021 03/14/2022 documented as of this encounter (statuses as of 09/19/2022) [address]20-2022 History of Past illness Narrative* Problem Noted Date Resolved Date Hypertensive urgency 03/14/2022 03/15/2022 AF (paroxysmal atrial fibrillation) 12/08/2021 03/14/2022 documented as of this encounter (statuses as of 01/30/2023) [address]20-2022 History of Past illness Narrative* Problem Noted Date Resolved Date Hypertensive urgency 03/14/2022 03/15/2022 AF (paroxysmal atrial fibrillation) 12/08/2021 03/14/2022 documented as of this encounter (statuses as of 01/30/2023) [address]20-2022 History of Past illness Narrative* Problem [...] of this encounter (statuses as of 02/08/2023) [address]20-2022 History of Past illness Narrative* Problem [...] of this encounter (statuses as of 07/12/2023) [facility] Narr[facility]* Problem [...] of this encounter (statuses as of 07/17/2023) [facility] Narrative* Problem [...] of this encounter (statuses as of 07/24/2023) [facility] Narrative* Problem [...] of this encounter (statuses as of 07/24/2023) [facility] Narrative* Problem [...] of this encounter (statuses as of 07/24/2023) [facility] Narrative* Problem [...] of this encounter (statuses as of 07/26/2023) [facility] Narrative* Problem [...] of this encounter (statuses as of 07/30/2023) [address]20-2022 History of Past illness Narrative* Problem [...] of this encounter (statuses as of 08/07/2023) [facility] Narrative* Problem [...] of this encounter (statuses as of 08/09/2023) [facility] Narrative* Problem [...] of this encounter (statuses as of 09/26/2023) [address]20-2022 History of Past illness Narrative* Problem [...] of this encounter (statuses as of 09/27/2023) [facility] Narrative* Problem [...] of this encounter (statuses as of 10/08/2023) [facility] Narrative* Problem [...] of this encounter (statuses as of 10/10/2023) [facility] Narrative* Problem [...] of this encounter (statuses as of 10/14/2023) [facility] Narrative* Problem [...] of this encounter (statuses as of 10/22/2023) [facility]arr[facility]* Problem [...] of this encounter (statuses as of 10/22/2023) [facility] Narrative* Problem [...] of this encounter (statuses as of 10/23/2023) [address]20-2022 History of Past illness Narrative* Problem [...] of this encounter (statuses as of 10/23/2023) [address]20-2022 History of Past illness Narrative* Problem [...] of this encounter (statuses as of 10/23/2023) [facility]arr[facility]* Problem [...] of this encounter (statuses as of 10/24/2023) [address]20-[address]22 History of Past illness Narrative* Problem [...] of this encounter (statuses as of 10/24/2023) [facility] Narrative* Problem [...] of this encounter (statuses as of 10/24/2023) [facility] Narrative* Problem [...] of this encounter (statuses as of 10/24/2023) [facility]arr[facility]* Problem [...] of this encounter (statuses as of 11/05/2023) [facility]arr[facility]* Problem [...] of this encounter (statuses as of 11/05/2023) [facility]* Problem [...] of this encounter (statuses as of 11/06/2023) [facility] Narr[facility]* Problem [...] of this encounter (statuses as of 11/06/2023) [facility] Narr[facility]* Problem [...] of this encounter (statuses as of 11/11/2023) [facility]arrative* Problem [...] of this encounter (statuses as of 11/12/2023) [facility] Narrative* Problem [...] of this encounter (statuses as of 11/12/2023) [address]20-2022 History of Past illness Narrative* Problem [...] of this encounter (statuses as of 11/12/2023) [facility] Narrative* Problem [...] of this encounter (statuses as of 11/26/2023) [facility] Narrative* Problem [...] of this encounter (statuses as of 11/30/2023) [facility]* Problem [...] of this encounter (statuses as of 12/04/2023) [facility]arr[facility]* Problem [...] of this encounter (statuses as of 12/04/2023) [facility] Narr[facility]* Problem [...] of this encounter (statuses as of 12/04/2023) [facility]* Problem [...] of this encounter (statuses as of 12/04/2023) [facility]arr[facility]* Problem [...] of this encounter (statuses as of 12/10/2023) [facility] Narrative* Problem [...] of this encounter (statuses as of 12/10/2023) [facility] N[facility]ative* Problem [...] of this encounter (statuses as of 12/13/2023) [facility] of Present illness Narrative* Micah Son DO - 12/19/2021 3:45 PM EDT Associated [...] Correspondence will be shared today via the Generate electronic health record or through regular mail, [...] hip joint Informed Consent Consent Obtained: Verbal [place] Protocol A moment to CARE was completed. [...] applicable Micah Son DO documented in this encounterC[facility] Miscellaneous Notes* Telephone Encounter - Hansa [...] Bandages [Other], and Sulfa (Sulfonamide Antibiotics) (home) [phone] (cell) Reason for call: patient checking to see if provider received disk with images from [facility] in [facility]. Please call to discuss if hip injections would be beneficial. Has appointment for injection this coming Tuesday 12/19 and wants to know if she should keep this appointment. Patient last appointment: Visit date not found The patients preferred pharmacy has been captured for this encounter? no Jaye Sauer documented in this encounterC[facility] History of Present illness Narrative* Janine Canales - 12/08/2021 9:36 AM EDT EVENT MONITOR DISPOSABLE PATCH INSTRUCTIONS Patient Name: Minal Caputo Clinic Number: [id number] Skin prepped and cleansed with alcohol Patch secured to prepped area Monitor Activated Serial #: [id number] Patient Instructed: 1.) Prescribed order timeframe 2.) Bathing guidelines 3.) Usage of event button and diary documentation 4.) Return of monitor at the end of prescribed order 5.) Call with problems [phone] or [phone] ext. [phone] Patient expresses a good understanding of instructions Janine Canales documented in [facility] encounterC[facility] History of Present illness Narrative* John Dc MD - 12/08/2021 8:15 AM EDT Images from the original note were not included. [facility] [place] Department of Cardiovascular Medicine SECTION OF CARDIAC PACING and ELECTROPHYSIOLOGY OUTPATIENT VISIT DATE December 08, 2021 OUTPATIENT VISIT TYPE NEW PRIMARY CARE PHYSICIAN: Rita Amanda MD ([facility]) [address] [place] [address] REFERRING PHYSICIAN: SELF CHIEF COMPLAINT: Self referral [...] Frequent thirst-No. Leo Ballard RN PHYSICAL EXAMINATION: LMP 08/26/2006 (Approximate) Physical Exam Constitutional: General: She [...] (WITHOUT TELEMETRY) Order Specific Question: Vendor Answer: GUILLAUME Order Specific Question: ICD/Pacemaker? Answer: Yes Order [...] INFORMATION: John Dc MD documented in this encounterC[facility] Evaluation note* Encounter Date Diagnosis Assessment [...] Patient care instructions given in writting by [facility] Care At Home document. [facility] Other 11-05-2021 NoteAdmission Information Admitting Physician - BIJU HATHAWAY, Terrell Consulting Physician - Judy Pierre MD Admitting Diagnoses: obstructing kidney stone Hospital Course Significant Findings 65-year-old white female past medical history of obesity, COPD, hypertension, GERD and nephrolithiasis who was admitted as direct admission for possible A. fib. Patient was scheduled to have cystoscopy and possible stent for obstructing kidney stone. EKG read as having A. fib so [facility]. Patient in the EKG [...] EFREN AMANDA Within 5 to 7 days [id number] [facility] [address] [place] [id number] Business (1) Additional Instructions: Patient Education Kidney Stones, [id number] [1] Admission H & P; Terrell CASTELLON MD 06/28/2021 16:34 [facility]Result Comment: Electronically Signed By: Terrell CASTELLON MD\.br\Date and Time Signed: 06/30/21 14:[id number] NoteBasic Information Admit Date/Time:06/28/2021 16:05 Chief Complaint aFIB History of Present Illness 65-year-old white female past medical history of obesity, COPD, hypertension, GERD and nephrolithiasis who was admitted as direct admission for possible A. fib. Patient was scheduled to have cystoscopy and possible stent for obstructing kidney stone. EKG read as having A. fib so [facility]. Patient in the EKG [...] 16:27:00 EDT,06/28/21 16:27:00 ED (more content not included)...[facility]Result Comment: Electronically Signed By: BIJU HATHAWAY, Alaa\.br\Date and Time Signed: 06/28/21 16:[id number] Note [id number]:127[facility]* Diagnosis AF (paroxysmal atrial fibrillation) (HCC)- Primary Atrial fibrillation [facility] encounter [facility] Diagnosis Paroxysmal atrial fibrillation (HCC)- Primary Atrial fibrillation [facility] this encounter [facility]* Diagnosis Primary osteoarthritis of left hip- Primary Primary localized osteoarthrosis, pelvic region and thigh documented [facility] this encounter [facility]* Diagnosis Right arm weakness- Primary Other musculoskeletal symptoms referable to limbs documented [facility] this encounter [facility]* Diagnosis Neck pain- Primary Cervicalgia [facility] encounter [facility]* Diagnosis Primary osteoarthritis of left hip- Primary Primary localized osteoarthrosis, pelvic region and thigh documented [facility] this encounter [facility]* Diagnosis Thyroid nodule Nontoxic uninodular goiter documented [facility] this encounter [facility]* Diagnosis Thyroid nodule- Primary Nontoxic uninodular goiter documented in this encounter [facility]* Diagnosis BMI 50.0-59.9, adult (HCC)- Primary Body Mass Index 50.0-59.9, adult Primary osteoarthritis of left hip Primary localized osteoarthrosis, pelvic region and thigh Type 2 diabetes mellitus with hyperglycemia, unspecified whether penitentiary insulin use (HCC) documented in this encounter [facility]* Diagnosis Cervical disc disorder with radiculopathy- Primary Brachial neuritis or radiculitis nos Weakness of right upper extremity Other musculoskeletal symptoms referable to limbs documented in this encounter [facility] noteNo assessment information availableHarrison [facility] Work Phone: Evaluation note* Diagnosis Primary osteoarthritis of left hip- Primary Primary localized osteoarthrosis, pelvic region and thigh documented [facility] this encounter [facility]* Diagnosis Gastroesophageal reflux disease, unspecified whether esophagitis present- Primary Screening for colon cancer Special screening for malignant neoplasms, colon Hiatal hernia Diaphragmatic hernia without mention of obstruction or gangrene documented in this encounter [facility]* Diagnosis Onset Date Resolution Status Multiple thyroid nodules [facility] Work Phone: Evaluation note* Diagnosis Malignant neoplasm of left female breast, unspecified estrogen receptor status, unspecified site of breast (HCC)- Primary [facility] Malignant neoplasm of left female breast, unspecified estrogen receptor status, unspecified site of breast (HCC) Invasive lobular carcinoma of breast in female (HCC) [facility] Diagnosis Invasive lobular carcinoma of breast in female (HCC)- Primary Invasive lobular carcinoma of breast in female (HCC) [facility]* Diagnosis Preop examination- Primary Preoperative [...] Preoperative examination, unspecified [facility] Diagnosis Invasive lobular carcinoma of breast in female (HCC)- Primary [facility] Diagnosis 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)- Primary S/P left mastectomy Acquired absence of breast and nipple Invasive lobular carcinoma of breast in female (HCC) [facility] Diagnosis Preoperative clearance- Primary Preoperative [...] Other postprocedural status [facility]* [...] (HCC)- Primary [facility]* Diagnosis Invasive lobular carcinoma of breast in female (HCC)- Primary [facility] Diagnosis Invasive lobular carcinoma of breast in female (HCC) [facility] Diagnosis Invasive lobular carcinoma of breast in female (HCC)- Primary Body mass index (BMI) 50.0-59.9, adult ([facility]) Encounter for screening for osteoporosis Special screening for osteoporosis Asymptomatic postmenopausal status [facility] Diagnosis Combined forms of age-related cataract of both eyes- Primary Other and combined forms of senile cataract [facility]* [...] unspecified site, unspecified whether rheumatoid factor present ([facility]) Preoperative clearance- Primary Preoperative examination, unspecified Mixed hyperlipidemia Primary hypertension Unspecified essential hypertension Palpitations PETERSON (dyspnea on exertion) Other dyspnea and respiratory abnormality Disorder of mitral valve Mitral valve disorders Morbid obesity (HCC) Morbid obesity Edema, unspecified type 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), idiopathic Rheumatoid arthritis, involving unspecified site, unspecified whether rheumatoid factor present ([facility]) Invasive lobular carcinoma of breast in female (HCC)- Primary Combined forms of age-related cataract of both eyes Other and combined forms of senile cataract Combined forms of age-related cataract of both eyes Other and combined forms of senile cataract documented in this encounter [facility] note* Diagnosis Pre-op evaluation- Primary Preoperative [...] unspecified site, unspecified whether rheumatoid factor present ([facility]) Preoperative clearance- Primary Preoperative examination, unspecified Mixed [...] of senile cataract [facility] encounter [facility]* Diagnosis Pre-op evaluation- Primary Preoperative examination, unspecified Atrial tachycardia, paroxysmal (HCC) Paroxysmal supraventricular tachycardia Primary hypertension Unspecified essential hypertension Mixed hyperlipidemia Gastroesophageal reflux disease, unspecified whether esophagitis present Morbid obesity with BMI of 50.0-59.9, adult ([facility]) Morbid obesity PETERSON (dyspnea on exertion) Other [...] Invasive lobular carcinoma of breast in female ([facility])- Primary Combined forms of age-related cataract of both eyes Other and combined forms of senile cataract Combined forms of age-related cataract of both eyes Other and combined forms of senile cataract documented [facility] this encounter [facility]* Diagnosis [...] unspecified site, unspecified whether rheumatoid factor present ([facility]) Multiple thyroid nodules- Primary Nontoxic multinodular goiter Combined forms of age-related cataract of both eyes Other and combined forms of senile cataract Combined forms of age-related cataract of both eyes Other and combined forms of senile cataract [facility] encounter [facility] Diagnosis Pre-op evaluation- Primary Preoperative [...] unspecified site, unspecified whether rheumatoid factor present ([facility]) Preoperative clearance- Primary Preoperative examination, unspecified Mixed hyperlipidemia Primary hypertension Unspecified essential hypertension Palpitations PETERSON (dyspnea on exertion) Other dyspnea and respiratory abnormality Disorder of mitral valve Mitral valve disorders Morbid obesity (HCC) Morbid obesity Edema, unspecified type 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), idiopathic Rheumatoid arthritis, involving unspecified site, unspecified whether rheumatoid factor present ([facility]) Invasive lobular carcinoma of breast in female (HCC) Combined forms of age-related cataract of both eyes Other and combined forms of senile cataract Combined forms of age-related cataract of both eyes Other and combined forms of senile cataract [facility] Diagnosis Pre-op evaluation- Primary Preoperative [...] & Plan Note - Mary Lou Singh APRN.VENDOR MANAGEMENT CONSULTANT - 05/18/2024 8:47 AM EDTAssociated Problem(s): GERD [...] 50.81 kg/m . [facility] encounter [facility] Diagnosis Pre-op evaluation- Primary Preoperative [...] of senile cataract documented [facility] encounter [facility]* Diagnosis Primary osteoarthritis of left hip Primary localized osteoarthrosis, pelvic region and thigh Pre-op evaluation- Primary Preoperative examination, unspecified Atrial tachycardia, paroxysmal (HCC) Paroxysmal supraventricular tachycardia Primary hypertension Unspecified essential hypertension Mixed hyperlipidemia Gastroesophageal reflux disease, unspecified whether esophagitis present Morbid obesity with BMI of 50.0-59.9, adult ([facility]) Morbid obesity PETERSON (dyspnea on exertion) Other [...] of senile cataract [facility] [...] of senile cataract [facility] Diagnosis Pre-op evaluation- Primary Preoperative [...] of senile cataract [facility] Diagnosis Pre-op evaluation- Primary Preoperative [...] of senile cataract [facility] Pre-op evaluation- Primary Preoperative [...] of senile cataract [facility] Diagnosis Pre-op evaluation- Primary Preoperative [...] Nontoxic multinodular goiter [facility] [...] cataract surgery, left [facility] Diagnosis Edema, unspecified type [facility] Diagnosis Pre-op evaluation- Primary [...] cataract surgery, left [facility] Diagnosis Pre-op evaluation- Primary Preoperative [...] in female (HCC) [facility] Diagnosis Pre-op evaluation- Primary Preoperative [...] in female (HCC) [facility] Diagnosis [...] cataract surgery, left [facility] Diagnosis [...] Nontoxic multinodular goiter documented in this encounter [facility] note* Diagnosis Pre-op evaluation- Primary Preoperative [...] Primary [facility] Diagnosis Pre-op evaluation- Primary Preoperative examination, unspecified Atrial tachycardia, paroxysmal (HCC) Paroxysmal supraventricular tachycardia Primary hypertension Unspecified essential hypertension Mixed hyperlipidemia Gastroesophageal reflux disease, unspecified whether esophagitis present Morbid obesity with BMI of 50.0-59.9, adult ([facility]) Morbid obesity PETERSON (dyspnea on exertion) Other [...] Primary [facility] [...] Preoperative examination, unspecified [facility] Diagnosis [...] Nontoxic multinodular goiter documented in this encounter [facility] note* Diagnosis Pre-op evaluation- Primary Preoperative [...] Nontoxic multinodular goiter [facility] [...] in female (HCC) [facility] Diagnosis Edema, unspecified type [facility] Diagnosis Pre-op evaluation- Primary [...] female (HCC)- Primary documented in this encounter [facility] note* Diagnosis Pre-op evaluation- Primary Preoperative [...] in female (HCC) [facility] [...] Other screening mammogram [facility] Diagnosis Edema, unspecified type- Primary [facility]* Diagnosis 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 (CMS-HCC) [facility]* Diagnosis 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- Primary Seropositive rheumatoid arthritis ([facility]) Severe obesity (BMI >= 40) ([facility]) Hypertension, unspecified type Other acute pulmonary embolism without acute cor pulmonale ([facility]) [facility] Diagnosis Cancer of overlapping sites of left breast ([facility])- Primary [facility] in [facility]* Diagnosis Right non-suppurative otitis media- Primary Nonsuppurative otitis media, not specified as acute or chronic Acute recurrent sinusitis, unspecified location Acute rhinitis Acute nasopharyngitis (common cold) documented in this [facility]* Diagnosis ASCVD (arteriosclerotic cardiovascular disease) Unspecified cardiovascular disease documented in this [facility]* Diagnosis 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 ([facility])- Primary documented in [facility]* Diagnosis 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 ([facility])- Primary Diuresis Polyuria Hospital discharge follow-up Other follow-up examination Diastolic dysfunction with acute on chronic heart failure ([facility]) Primary hypertension Unspecified essential hypertension Primary invasive malignant neoplasm of female breast, left ([facility]) [facility]* Diagnosis Intertrigo- Primary Other specified erythematous condition Jessica infection Candidiasis of unspecified site [facility]* Diagnosis Seropositive rheumatoid arthritis ([facility])- Primary Other acute pulmonary embolism without acute cor pulmonale ([facility]) Edema, unspecified type Hypertension, unspecified type Severe obesity (BMI >= 40) ([facility]) Cancer of overlapping sites of left breast ([facility]) Lower leg edema Hip pain, unspecified laterality documented [facility]* Diagnosis Jessica infection- Primary Candidiasis of unspecified site documented [facility]* Diagnosis Hypertension, unspecified type documented [facility] this [facility]* Diagnosis Hypertension, unspecified type documented in this [facility]* Diagnosis Medicare annual wellness visit, subsequent- Primary Seropositive rheumatoid arthritis ([facility]) Hip pain, unspecified laterality Polyarthralgia Pain in joint, multiple sites documented [facility]* Diagnosis Spinal stenosis, unspecified spinal region- Primary Seropositive rheumatoid arthritis ([facility]) Right non-suppurative otitis media Nonsuppurative otitis media, not specified as acute or chronic Primary osteoarthritis of both knees documented [facility]* Diagnosis Hip pain, unspecified laterality documented [facility]* Diagnosis Hypertension, unspecified type documented [facility]* Diagnosis ASCVD (arteriosclerotic cardiovascular disease) Unspecified cardiovascular disease Edema, unspecified type documented [facility]* Diagnosis Hip pain, unspecified laterality documented [facility]* Diagnosis Pre-op evaluation- Primary Preoperative examination, unspecified Atrial tachycardia, paroxysmal ([facility]) Paroxysmal supraventricular tachycardia Primary hypertension Unspecified essential hypertension Mixed hyperlipidemia Gastroesophageal reflux disease, unspecified whether esophagitis present Morbid obesity with BMI of 50.0-59.9, adult ([facility]) Morbid obesity PETERSON (dyspnea on exertion) Other [...] unspecified site, unspecified whether rheumatoid factor present ([facility]) Preoperative clearance- Primary Preoperative examination, unspecified Mixed hyperlipidemia Primary hypertension Unspecified essential hypertension Palpitations PETERSON (dyspnea on exertion) Other dyspnea and respiratory abnormality Disorder of mitral valve Mitral valve disorders Morbid obesity (HCC) Morbid obesity Edema, unspecified type 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), idiopathic Rheumatoid arthritis, involving unspecified site, unspecified whether rheumatoid factor present ([facility]) Pre-op evaluation- Primary Preoperative examination, unspecified Morbid obesity (HCC) Morbid obesity Multiple thyroid nodules Nontoxic multinodular goiter Pulmonary embolism, other, unspecified chronicity, unspecified whether acute cor pulmonale present ([facility]) Invasive lobular carcinoma of breast in female [...] breast and nipple [facility] Diagnosis Edema, unspecified type [facility] Pre-op evaluation- Primary Preoperative [...] female (HCC)- Primary documented in this encounter [facility]* Diagnosis Pre-op evaluation- Primary Preoperative [...] female (HCC)- Primary [facility]* Diagnosis [...] Invasive lobular carcinoma of breast in female ([facility]) [facility] Diagnosis Pre-op evaluation- Primary Preoperative [...] in female (HCC) [facility] [...] obstruction or gangrene documented [facility] this [facility]* Diagnosis [...] female (HCC)- Primary documented in this encounter [facility] note* Diagnosis Pre-op evaluation- Primary Preoperative [...] unspecified site, unspecified whether rheumatoid factor present ([facility]) Pre-op evaluation- Primary Preoperative examination, unspecified Morbid [...] Primary [facility] Diagnosis Pre-op evaluation- Primary Preoperative examination, unspecified Atrial tachycardia, paroxysmal (HCC) Paroxysmal supraventricular tachycardia Primary hypertension Unspecified essential hypertension Mixed hyperlipidemia Gastroesophageal reflux disease, unspecified whether esophagitis present Morbid obesity with BMI of 50.0-59.9, adult ([facility]) Morbid obesity PETERSON (dyspnea on exertion) Other [...] cyst Sebaceous cyst documented [facility] this [facility]* Diagnosis [...] cyst Sebaceous cyst documented in this encounter [facility]* Diagnosis Pre-op evaluation- Primary Preoperative examination, unspecified Atrial tachycardia, paroxysmal (HCC) Paroxysmal supraventricular tachycardia Primary hypertension Unspecified essential hypertension Mixed hyperlipidemia Gastroesophageal reflux disease, unspecified whether esophagitis present Morbid obesity with BMI of 50.0-59.9, adult ([facility]) Morbid obesity PETERSON (dyspnea on exertion) Other [...] cyst Sebaceous cyst documented [facility] this [facility]* Diagnosis [...] cyst Sebaceous cyst documented in this encounter [facility] note* Diagnosis Pre-op evaluation- Primary Preoperative [...] cyst Sebaceous cyst [facility] Diagnosis Encounter for screening mammogram for malignant neoplasm of breast- Primary [facility] Diagnosis Pre-op evaluation- Primary [...] in adult, unspecified whether serious comorbidity present ([facility]) Gastroesophageal reflux disease without esophagitis Esophageal reflux Inclusion cyst Sebaceous cyst [facility] Diagnosis Pre-op evaluation- Primary Preoperative examination, unspecified Atrial tachycardia, paroxysmal (HCC) Paroxysmal supraventricular tachycardia Primary hypertension Unspecified essential hypertension Mixed hyperlipidemia Gastroesophageal reflux disease, unspecified whether esophagitis present Morbid obesity with BMI of 50.0-59.9, adult ([facility]) Morbid obesity PETERSON (dyspnea on exertion) Other [...] unspecified site, unspecified whether rheumatoid factor present ([facility]) Preoperative clearance- Primary Preoperative examination, unspecified Mixed [...] cyst Sebaceous cyst documented [facility]* Diagnosis [...] cyst Sebaceous cyst documented in this [facility]* Diagnosis [...] Primary Sebaceous cyst [facility] [...] Assessment & Plan Note - Hellen Matias APRN.INVESTMENT OFFICER - 03/19/2025 10:49 AM EDT Associated Problem(s): [...] Dr. 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 [employer] but another told her she did not have it Does not use use inhaler Currently stable [facility] Diagnosis Pre-op evaluation- Primary Preoperative [...] in female (HCC) [facility] Diagnosis Encounter for screening mammogram for malignant neoplasm of breast [facility] Diagnosis Pre-op evaluation- Primary [...] Primary [facility] Diagnosis Acute recurrent pansinusitis- Primary Vaginal candidiasis Candidiasis of vulva and vagina Yeast dermatitis documented [facility] Diagnosis Pre-op evaluation- Primary [...] in female (HCC) documented [facility] this [facility]* Diagnosis [...] Primary [facility] Diagnosis Acute recurrent pansinusitis documented [facility]* Diagnosis Pre-op evaluation- Primary [...] of multiple sites [facility] Diagnosis Pre-op evaluation- Primary Preoperative [...] unspecified type- Primary documented in this encounter [facility] note* Diagnosis Pre-op evaluation- Primary Preoperative [...] comorbidity present (HCC) documented in this encounter [facility] general Narrative - Reported* Type Description Date Medical History acid reflux Medical History Hypertension Medical History hypercholesterolemia Medical History Scoliosis Surgical History back surgery x2 Surgical History C section Surgical History kidney stone Surgical History knee replacement bilateral Hospitalization History see above [facility] [employer] Other InstructionsNot on filedocumented in this encounter [...] through Care Everywhere. * Heart Failure, Adult ([place]) [facility] [...] W/WOM-MODE COMPL SPEC&COLR D John Dc MD [address] [place] [address] [facility] [place] [address] [place] [address] Referral ID Status Reason Start Date Expiration Date Visits Requested Visits Authorized [id number] Pending Review Auto-Generat ed Referral 12/08/2021 12/08/2022 1 1 [facility] for [facility] (narrative)* Diagnostic Procedure Only (Routine) - Closed Specialty Diagnoses / Procedures Referred By Contac t Referred To Contact US IMAGING Diagnoses Thyroid nodule Procedures US THYROID/PARATHYROID US SOFT TISSUE HEAD & NECK REAL TIME IMGE Lopez Servin DO [address] [place] [address] [facility] Referral ID Status Reason Start Date Expiration Date V isits Requested Visits Authorized [id number] Closed Auto-Generate d Referral 03/15/2022 04/14/2023 1 1 [facility] for referral (narrative)* Outpatient Procedure (Routine) - Authorized Specialty Diagnoses / Procedures Referred By Contac t Referred To Contact [facility] Diagnoses Gastroesophageal reflux disease, unspecified whether esophagitis present Hiatal hernia Procedures EGD DIAGNOSTIC ESOPHAGOGASTRODUODENOSC OPY TRANSORAL DIAGNOSTIC Nell Trujillo APRN.CNP [address] [place] [address] [facility] [place] [address] [place] [address] Referral ID Status Reason Start Date Expiration Date Visits Requested Visits Authorized [id number] Authorized Auto-Generat ed Referral 09/19/2022 09/19/2023 1 1 * Outpatient Procedure (Routine) - Authorized Specialty Diagnoses / Procedures Referred By Contac t Referred To Contact [facility] Diagnoses Screening for colon cancer Procedures COLONOSCOPY SCREENING COLONOSCOPY FLX DX W/COLLJ SPEC WHEN PFRMD Nell Trujillo APRN.CNP [address] [place] [address] [facility] [place] [address] [place] [address] Referral ID Status Reason Start Date Expiration Date Visits Requested Visits Authorized [id number] Authorized Auto-Generat ed Referral 09/19/2022 09/19/2023 1 1 [facility] for referral (narrative)* Diagnostic Procedure Only (Routine) - Pending Review Specialty Diagnoses / Procedures Referred By Contac t Referred To Contact [facility] Diagnoses Malignant neoplasm of left female breast, unspecified estrogen receptor status, unspecified site of breast (HCC) Procedures US AXILLA ONLY LEFT US LMTD JOINT/OTH NONVASC XTR STRUX R-T W/[place] [address] [address] [id number] [facility] [address] [address] Referral ID Status Reason Start Date Expiration Date Visits Requested Visits Authorized [id number] Pending Review Auto-Generat ed Referral 08/15/2024 1 1 [facility] for referral (narrative)* Diagnostic Procedure Only (Routine) - Closed Specialty Diagnoses / Procedures Referred By Contac t Referred To Contact [facility] Diagnoses Malignant neoplasm of left female breast, unspecified estrogen receptor status, unspecified site of breast (HCC) Procedures US AXILLA ONLY LEFT US LMTD JOINT/OTH NONVASC XTR STRUX R-T W/[place] [address] [address] [id number] [facility] [address] [place] [address] Referral ID Status Reason Start Date Expiration Date V isits Requested Visits Authorized [id number] Closed Auto-Generate d Referral 07/17/2023 08/15/2024 1 1 [facility] for referral (narrative)* Diagnostic Procedure Only [...] TIME WITH IMAGE LIMITED Cathy Templeton PA-C [address] [place] [address] [place] [address] [facility] [address] [place] [address] Referral ID Status Reason Start Date Expiration Date Visits Requested Visits Authorized [id number] Pending Review Auto-Generat ed Referral 01/14/2024 02/12/2025 [...] MAMMOGRAPHY COMPUTER-AIDED DETCJ UNI Cathy Templeton PA-C [address] [place] [address] [place] [address] [facility] [address] [place] [address] Referral ID Status Reason Start Date Expiration Date Visits Requested Visits Authorized [id number] Pending Review Auto-Generat ed Referral 01/14/2024 02/12/2025 1 1 [facility] for referral (narrative)* Diagnostic Procedure Only (Routine) - Pending Review Specialty Diagnoses / Procedures Referred By Contac t Referred To Contact XR IMAGING Diagnoses Encounter for screening for osteoporosis Asymptomatic postmenopausal status Procedures DXA-AXIAL SKELETON WITH VFA DXA BONE DENSITY STUDY AXIAL SKELETON Mitch Neri MD [address] [place] [address] [place] [address] [place] [address] Referral ID Status Reason Start Date Expiration Date Visits Requested Visits Authorized [id number] Pending Review Auto-Generat ed Referral 03/03/2024 04/02/2025 1 1 [facility] for referral (narrative)* Diagnostic Procedure Only (Routine) - Authorized Specialty Diagnoses / Procedures Referred By Contac t Referred To Contact US IMAGING Diagnoses Multiple thyroid nodules Procedures US THYROID/PARATHYROID US SOFT TISSUE HEAD & NECK REAL TIME IMGE Sandy Hillman MD, PhD [address] [place] [address] [place] [address] Referral ID Status Reason Start Date Expiration Date Visits Requested Visits Authorized [id number] Authorized Auto-Generat ed Referral 05/05/2024 06/04/2025 1 1 [facility] for referral (narrative)* Diagnostic Procedure Only (Routine) - Closed Specialty Diagnoses / Procedures [facility] X[facility] Diagnoses Primary osteoarthritis of left hip Procedures XR HIP GENERAL 3V PELV/AP/LAT LEFT RADEX HIP UNILATERAL WITH PELVIS 2-3 VIEWS Nayan Yan, DO [address] [place] [address] [place] [address] Referral ID Status Reason Start Date Expiration Date V isits Requested Visits Authorized [id number] Closed Auto-Generate d Referral 03/23/2022 04/22/2023 1 1 [facility] for referral (narrative)* Outpatient Procedure (Routine) - New Request Specialty Diagnoses / Procedures Referred By Contac t Referred To Contact [facility] Diagnoses Invasive lobular carcinoma of breast in female (HCC) Procedures ECG COMPLETE ECG ROUTINE ECG W/LEAST 12 LDS W/I&R Mitch Neri MD [address] [place] [address] [facility] [place] [address] [place] [address] Referral ID Status Reason Start Date Expiration Date Visits Requested Visits Authorized [id number] New Request Auto-Generat ed Referral 07/16/2025 1 1 * Outpatient Procedure (Routine) - New Request Specialty Diagnoses / Procedures Referred By Contac t Referred To Contact [facility] Diagnoses Invasive lobular carcinoma of breast in female (HCC) Procedures ECG COMPLETE ECG ROUTINE ECG W/LEAST 12 LDS W/I&R Mitch Neri MD [address] [place] [address] [facility] [place] [address] [place] [address] Referral ID Status Reason Start Date Expiration Date Visits Requested Visits Authorized [id number] New Request Auto-Generat ed Referral 07/16/2025 [facility] Diagnostic Procedure Only (Routine) - New Request Specialty Diagnoses / Procedures Referred By Contac t Referred To Contact [facility] Diagnoses Invasive lobular carcinoma of breast in female (HCC) Encounter for screening mammogram for malignant neoplasm of breast Procedures TINO SCREENING W SULMA SCREENING DIGITAL BREAST TOMOSYNTHESIS BI SCREENING MAMMOGRAPHY BI 2-VIEW BREAST INC CAD Mitch Neri MD [address] [place] [address] [facility] [address] [place] [phone] Referral ID Status Reason Start Date Expiration Date Visits Requested Visits Authorized [id number] New Request Auto-Generat ed Referral 12/30/2024 11/01/2025 1 1 * Consult, Test, Treat (Routine) - Authorized Specialty Diagnoses / Procedures Referred By Contac t Referred To Contact Nephrology Diagnoses Elevated serum creatinine Procedures CONSULT TO NEPHROLOGY OFFICE/OUTPATIENT NEW HIGH MDM 60 MINUTES Mitch Neri MD [address] [place] [address] Referral ID Status Reason Start Date Expiration Date Visits Requested Visits Authorized [id number] Authorized PCP Requested Referral 10/02/2024 10/02/2025 1 1 * Consult, Test, Treat (Routine) - Authorized Specialty Diagnoses / Procedures [facility] To Contact Pl[facility] Surgery Diagnoses Invasive lobular carcinoma of breast in female (HCC) Lymphedema Procedures CONSULT TO PLASTIC SURGERY OFFICE/OUTPATIENT [facility] 60 MINUTES Mitch Neri MD [address] [place] [address] Referral ID Status Reason Start Date Expiration Date Visits Requested Visits Authorized [id number] Authorized PCP Requested Referral 10/02/2024 10/02/2025 1 1 [facility] for referral (narrative)* Consultation (Routine) - Authorized Specialty Diagnoses / Procedures [facility] Referred To Contact Rehabilitation Diagnoses Cancer of overlapping sites of left breast (CMS-HCC) Ollie Aponte MD [address] [place] [address] [facility] [address] [place] [address] Referral ID Status Reason Start Date Expiration Date V isits Requested Visits Authorized [id number] Authorized 01/28/2024 01/27/2025 1 1 Scheduling Instructions Potential for Lymphedema issues in Left Arm; s/p mastectomy, pending radiation [facility] for visit Narrative* Diagnostic Procedure Only (Routine) - Closed Specialty Diagnoses / Procedures [facility] Referred To Contact US IMAGING Diagnoses Thyroid nodule Procedures US THYROID/PARATHYROID US SOFT TISSUE HEAD & NECK REAL TIME IMGE Lopez Servin DO [address] [place] [address] [facility] Imaging Referral ID Status Reason Start Date Expiration Date V isits Requested Visits Authorized [id number] Closed Auto-Generate d Referral 03/15/2022 04/14/2023 1 1 [facility] for visit Narrative* Diagnostic Procedure Only (Routine) - Closed Specialty Diagnoses / Procedures Referred By Contac t Referred To Contact XR IMAGING Diagnoses Primary osteoarthritis of left hip Procedures XR HIP GENERAL 3V PELV/AP/LAT LEFT RADEX HIP UNILATERAL WITH PELVIS 2-3 VIEWS Nayan Yan, DO [address] [place] [address] [place] [address] Referral ID Status Reason Start Date Expiration Date V isits Requested Visits Authorized [id number] Closed Auto-Generate d Referral 03/23/2022 04/22/2023 1 1 [facility] for visit Narrative* Diagnostic Procedure Only (Routine) - Closed Specialty Diagnoses / Procedures Referred By Contac t Referred To Contact US IMAGING Diagnoses Multiple thyroid nodules Procedures US THYROID/PARATHYROID US SOFT TISSUE HEAD & NECK REAL TIME IMGE Sandy Hillman MD, PhD [address] [place] [address] [place] [address] Referral ID Status Reason Start Date Expiration Date V isits Requested Visits Authorized [id number] Closed Auto-Generate d Referral 05/05/2024 06/04/2025 1 1 [facility] for visit Narrative* Outpatient Procedure (Routine) - Closed Specialty Diagnoses / Procedures Referred By Contac t Referred To Contact [facility] Diagnoses Pre-op testing Procedures ECG COMPLETE ECG ROUTINE ECG W/LEAST 12 LDS W/I&[place] [address] [place] [address] [facility] [place] [address] [place] [address] Referral ID Status Reason Start Date Expiration Date V isits Requested Visits Authorized [id number] Closed Auto-Generate d Referral 07/23/2023 07/22/2024 1 1 [facility] for visit Narrative* Outpatient Procedure (Routine) - Closed Specialty Diagnoses / Procedures Referred By Contac t Referred To Contact [facility] Diagnoses Invasive lobular carcinoma of breast in female (HCC) Procedures ECG COMPLETE ECG ROUTINE ECG W/LEAST 12 LDS W/I&R Mitch Neri MD [address] [place] [address] [facility] [place] [address] [place] [address] Referral ID Status Reason Start Date Expiration Date V isits Requested Visits Authorized [id number] Closed Auto-Generate d Referral 07/16/2024 07/16/2025 1 1 [facility] for visit Narrative* Outpatient Procedure (Routine) - Closed Specialty Diagnoses / Procedures Referred By Contac t Referred To Contact [facility] Diagnoses Invasive lobular carcinoma of breast in female (HCC) Procedures ECG COMPLETE ECG ROUTINE ECG W/LEAST 12 LDS W/I&R Mitch Neri MD [address] [place] [address] Phone: tel: fax: [facility] [address] [address] Referral ID Status Reason Start Date Expiration Date V isits Requested Visits Authorized [id number] Closed Auto-Generate d Referral 07/16/2024 07/16/2025 1 1 [facility] for visit Narrative* [place] Prior Authorization (Routine) - Authorized Specialty Diagnoses / Procedures Referred By Contac t Referred To Contact Diagnoses Invasive lobular carcinoma of breast in female (HCC) Mitch Neri MD [address] [place] [address] Phone: tel: fax: Hematology/Oncology [address] [place] [address] Phone: tel: fax: Referral ID Status Reason Start Date Expiration Date V isits Requested Visits Authorized [id number] Authorized 03/03/2024 06/01/2024 99 99 [facility] Summary Purpose Family History Relationship Condition Age at Onset Recorded Date/T davis brother Hypertension Unknown father Unknown Heart disease Unknown Hypertension Unknown Not Specified Hypertension Unknown Unknown sister Hypertension Unknown Relationship Condition Age at Onset Recorded Date/T davis brother Hypertension Unknown father Unknown Heart disease Unknown Hypertension Unknown mother Hypertension Unknown Unknown sister Hypertension Unknown Advance Directives Documents on File Type Date Recorded Patient Mica Layer Expl anation Advance Directive(s) 12/22/2017 6:24 PM Documents on File Type Date Recorded Patient Mica Layer Expl anation Advance Directive(s) 12/22/2017 6:24 PM Documents on File Type Date Recorded Patient Mica Layer Expl anation Advance Directive(s) 03/15/2022 12:45 PM Advance Directive(s) 12/22/2017 6:24 PM Documents on File Type Date Recorded Patient Mica Layer Expl anation Advance Directive(s) 03/15/2022 12:45 PM Advance Directive(s) 12/22/2017 6:24 PM Advance Directive Response Recorded Date/ Time Advance Directives No January 04 9:04am Advance Directive Response Recorded Date/ Time Advance Directives No June 28, 2022 10:08am Advance Directive Response Recorded Date/ Time Advance Directives No June 28, 2022 11:08am Hospital Course Note HNO ID: [id number] Author: Tam willis (Res) Fredrick Service: Orthopaedic [...] By Binu fontanez Referred To Contact Diagnoses 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 (CMS-HCC) Other acute pulmonary embolism without acute cor pulmonale (CMS-HCC) Procedures Vas venous duplex lwr bilateral Sunny Jenkins MD [address] [facility] [place] [address] Referral ID Status Reason Start Date Expiration Date V isits Requested Visits Authorized [id number] Pending Review 01/28/2024 01/27/2025 1 1 Specialty Diagnoses / Procedures Referred By Binu fontanez Referred To Contact Radiology Diagnoses 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 (CMS-HCC) Procedures CT angiogram chest Sunny Jenkins MD [address] [facility] [address] [facility] [address] Referral ID Status Reason Start Date Expiration Date V isits Requested Visits Authorized [id number] Pending Review 01/28/2024 01/27/2025 1 1 Specialty Diagnoses / Procedures Referred By Binu fontanez Referred To Contact [facility] Diagnoses Invasive lobular carcinoma of breast in female (HCC) Procedures CONSULT TO LYMPHEDEMA THERAPY OFFICE/OUTPATIENT NEW HIGH MDM 60 MINUTES Josef Austin MD [address] [place] [address] [place] [address] [facility] [place] [address] [place] [address] Referral ID Status Reason Start Date Expiration Date Visits Requested Visits Authorized [id number] Authorized Auto-Generat ed Referral 02/13/2024 02/12/2025 99 99 Specialty Diagnoses / Procedures Referred By Contac t Referred To Contact Radiation Oncology Diagnoses Invasive lobular carcinoma of breast in female (HCC) Procedures RAD/ONC CONSULT OFFICE/OUTPATIENT NEW [facility] MDM 60 MINUTES Mitch Neri MD [address] [place] [address] Referral ID Status Reason Start Date Expiration Date Visits Requested Visits Authorized [id number] Authorized PCP Requested Referral 01/21/2024 01/20/2025 1 1 Specialty Diagnoses / Procedures Referred By Contac t Referred To Contact General Surgery Diagnoses Cutaneous abscess of groin Procedures CONSULT TO GENERAL SURGERY OFFICE/OUTPATIENT [facility] MDM 60 MINUTES Mitch Neri MD [address] [place] [address] Referral ID Status Reason Start Date Expiration Date Visits Requested Visits Authorized [id number] Authorized PCP Requested Referral 01/07/2024 01/06/2025 1 1 Specialty Diagnoses / Procedures Referred By Contac t Referred To Contact CT IMAGING Diagnoses Chest pain, unspecified type Procedures CT CHEST W IVCON PE DIAGNOSTIC COMPUTED TOMOGRAPHY THORAX W/CONTRAST Brianna Renner, [employer].[address] [place] [address] [place] [address] Referral ID Status Reason Start Date Expiration Date Visits Requested Visits Authorized [id number] Pending Review Auto-Generat ed Referral 11/05/2023 12/04/2024 1 1 Specialty Diagnoses / Procedures Referred By Contac t Referred To Contact Diagnoses Cervical disc disorder with radiculopathy Weakness of right upper extremity Procedures CONSULT TO SPINE SURGERY OFFICE/OUTPATIENT NEW HIGH MDM 60-74 MINUTES Alberto Monsalve, [address] [place] [id number] Referral ID Status Reason Start Date Expiration Date Visits Requested Visits Authorized [id number] Authorized PCP Requested Referral 03/19/2022 03/19/2023 1 1 Specialty Diagnoses / Procedures Referred By Contac t Referred To Contact Nutrition Diagnoses BMI 50.0-59.9, adult (HCC) Type 2 diabetes mellitus with hyperglycemia, unspecified whether penitentiary insulin use (HCC) Procedures CONSULT TO NUTRITION THERAPY OFFICE/OUTPATIENT [facility] 60-[place] [address] [place] [address] Referral ID Status Reason Start Date Expiration Date Visits Requested Visits Authorized [id number] Authorized PCP Requested Referral 04/03/2022 04/03/2023 1 1 Specialty Diagnoses / Procedures Referred By Contac t Referred To Contact Endocrinology Diagnoses Thyroid nodule Procedures CONSULT TO ENDOCRINOLOGY OFFICE/OUTPATIENT [facility]) 60-74 MINUTES Lopez Salmon DO [address] [place] [address] Referral ID Status Reason Start Date Expiration Date Visits Requested Visits Authorized [id number] Authorized PCP Requested Referral 04/03/2022 04/03/2023 1 1 Specialty Diagnoses / Procedures Referred By Contac t Referred To Contact Orthopedics Diagnoses Primary osteoarthritis of left hip Procedures CONSULT TO ORTHOPAEDICS OFFICE/OUTPATIENT [facility] 60-74 [place] [address] Referral ID Status Reason Start Date Expiration Date Visits Requested Visits Authorized [id number] Authorized PCP Requested Referral 03/23/2022 03/23/2023 1 1 Specialty Diagnoses / Procedures Referred By Contac t Referred To Contact XR IMAGING Diagnoses Primary osteoarthritis of left hip Procedures XR HIP GENERAL 3V PELV/AP/LAT LEFT RADEX HIP UNILATERAL WITH PELVIS 2-3 VIEWS Nayan Yan DO [facility] [address] [place] [address] Xr Imaging Referral ID Status Reason Start Date Expiration Date V isits Requested Visits Authorized [id number] Closed Auto-Generate d Referral 03/23/2022 04/22/2023 1 1 Specialty Diagnoses / Procedures Referred By Contac t Referred To Contact [facility] Diagnoses Neck pain Procedures CONSULT TO PHYSICAL THERAPY PHYSICAL THERAPY EVALUATION HIGH COMPLEX 45 MINS Luis AntonioLopez, [address] [place] [address] [facility] [address] [address] Referral ID Status Reason Start Date Expiration Date Visits Requested Visits Authorized [id number] Authorized PCP Requested Referral Auto-Generate d Referral 03/23/2022 03/23/2023 99 99 Specialty Diagnoses / Procedures Referred By Contac t Referred To Contact [facility] Diagnoses Right arm weakness Procedures CONSULT TO TECHNICAL SERVICES REP OCCUPATIONAL THERAPY EVAL HIGH COMPLEX 60 MINS Luis AntonioLopez, [address] [place] [address] [address] Referral ID Status Reason Start Date Expiration Date Visits Requested Visits Authorized [id number] Authorized PCP Requested Referral Auto-Generate d Referral 03/15/2022 03/15/2023 99 99 Specialty Diagnoses / Procedures Referred By Contac t Referred To Contact [facility] Diagnoses Right arm weakness Procedures CONSULT TO PHYSICAL THERAPY PHYSICAL THERAPY EVALUATION HIGH COMPLEX 45 MINS Luis AntonioLopez, DO [address] [place] [address] [address] Referral ID Status Reason Start Date Expiration Date Visits Requested Visits Authorized [id number] Authorized PCP Requested Referral Auto-Generate d Referral [...] section and content) DATE CREATED AUTHOR 10/15/2018 [facility] DATE CREATED AUTHOR AUTHOR'S ORGANIZ ATION 08/03/2021 [facility] DATE CREATED AUTHOR AUTHOR'S ORGANIZ ATION 02/10/2022 [facility] dical Specialist DATE CREATED AUTHOR AUTHOR'S ORGANIZ ATION 07/06/2022 [facility] DATE CREATED AUTHOR AUTHOR'S ORGANIZ ATION 12/13/2022 [facility] DATE CREATED AUTHOR AUTHOR'S ORGANIZ ATION 09/23/2023 [facility] DATE CREATED AUTHOR AUTHOR'S ORGANIZ ATION 06/12/2024 [facility] DATE CREATED AUTHOR AUTHOR'S ORGANIZ ATION 09/07/2024 [facility] DATE CREATED AUTHOR AUTHOR'S ORGANIZ ATION 11/21/2024 [facility] DATE CREATED AUTHOR AUTHOR'S ORGANIZ ATION 03/09/2025 [facility] dical Specialists [facility] DATE CREATED AUTHOR AUTHOR'S ORGANIZ ATION 04/05/2025 [facility] DATE CREATED AUTHOR AUTHOR'S ORGANIZ ATION 04/06/2025 [facility] DATE CREATED AUTHOR AUTHOR'S ORGANIZ ATION 04/18/[address] [facility] DATE CREATED AUTHOR AUTHOR'S ORGANIZ ATION 04/26/2025 [facility] d[facility] Source Comments (unrecognize d section and content) In the event this informatio n is protected by the Federal Confidentiality of Alcohol and Drug Abuse Patient Records regulations: The Federal rules restrict any use of the information to criminally investigate or prosecute any alcohol or drug abuse patient.[facility] the event this information is protected by the Federal Confidentiality of Alcohol and Drug Abuse Patient Records regulations: The Federal rules restrict any use of the information to criminally investigate or prosecute any alcohol or drug abuse patient.[facility] the event this information is protected by the Federal Confidentiality of Alcohol and Drug Abuse Patient Records regulations: The Federal rules restrict any use of the information to criminally investigate or prosecute any alcohol or drug abuse patient.[facility] Hospital[facility] the event this information is protected by the Federal Confidentiality of Alcohol and Drug Abuse Patient Records regulations: The Federal rules restrict any use of the information to criminally investigate or prosecute any alcohol or drug abuse patient.[facility] Hospital[facility] the event this information is protected by the Federal Confidentiality of Alcohol and Drug Abuse Patient Records regulations: The Federal rules restrict any use of the information to criminally investigate or prosecute any alcohol or drug abuse patient.[facility] Hospital[facility] the event this information is protected by the Federal Confidentiality of Alcohol and Drug Abuse Patient Records regulations: The Federal rules restrict any use of the information to criminally investigate or prosecute any alcohol or drug abuse patient.[facility] Hospital[facility] the event this information is protected by the Federal Confidentiality of Alcohol and Drug Abuse Patient Records regulations: The Federal rules restrict any use of the information to criminally investigate or prosecute any alcohol or drug abuse patient.[facility] Hospital[facility] the event this information is protected by the Federal Confidentiality of Alcohol and Drug Abuse Patient Records regulations: The Federal rules restrict any use of the information to criminally investigate or prosecute any alcohol or drug abuse patient.[facility] Hospital[facility] the event this information is protected by the Federal Confidentiality of Alcohol and Drug Abuse Patient Records regulations: The Federal rules restrict any use of the information to criminally investigate or prosecute any alcohol or drug abuse patient.[facility] Hospital[facility] the event this information is protected by the Federal Confidentiality of Alcohol and Drug Abuse Patient Records regulations: The Federal rules restrict any use of the information to criminally investigate or prosecute any alcohol or drug abuse patient.[facility] Hospital[facility] the event this information is protected by the Federal Confidentiality of Alcohol and Drug Abuse Patient Records regulations: The Federal rules restrict any use of the information to criminally investigate or prosecute any alcohol or drug abuse patient.[facility] Hospital[facility] the event this information is protected by the Federal Confidentiality of Alcohol and Drug Abuse Patient Records regulations: The Federal rules restrict any use of the information to criminally investigate or prosecute any alcohol or drug abuse patient.[facility] HospitalIn the event this information is protected by the Federal Confidentiality of Alcohol and Drug Abuse Patient Records regulations: The Federal rules restrict any use of the information to criminally investigate or prosecute any alcohol or drug abuse patient.[facility] HospitalIn the event this information is protected by the Federal Confidentiality of Alcohol and Drug Abuse Patient Records regulations: The Federal rules restrict any use of the information to criminally investigate or prosecute any alcohol or drug abuse patient.[facility] HospitalIn the event this information is protected by the Federal Confidentiality of Alcohol and Drug Abuse Patient Records regulations: The Federal rules restrict any use of the information to criminally investigate or prosecute any alcohol or drug abuse patient.[facility] HospitalIn the event this information is protected by the Federal Confidentiality of Alcohol and Drug Abuse Patient Records regulations: The Federal rules restrict any use of the information to criminally investigate or prosecute any alcohol or drug abuse patient.[facility] HospitalIn the event this information is protected by the Federal Confidentiality of Alcohol and Drug Abuse Patient Records regulations: The Federal rules restrict any use of the information to criminally investigate or prosecute any alcohol or drug abuse patient.[facility] HospitalIn the event this information is protected by the Federal Confidentiality of Alcohol and Drug Abuse Patient Records regulations: The Federal rules restrict any use of the information to criminally investigate or prosecute any alcohol or drug abuse patient.[facility] HospitalIn the event this information is protected by the Federal Confidentiality of Alcohol and Drug Abuse Patient Records regulations: The Federal rules restrict any use of the information to criminally investigate or prosecute any alcohol or drug abuse patient.[facility] HospitalIn the event this information is protected by the Federal Confidentiality of Alcohol and Drug Abuse Patient Records regulations: The Federal rules restrict any use of the information to criminally investigate or prosecute any alcohol or drug abuse patient.[facility] HospitalIn the event this information is protected by the Federal Confidentiality of Alcohol and Drug Abuse Patient Records regulations: The Federal rules restrict any use of the information to criminally investigate or prosecute any alcohol or drug abuse patient.[facility] HospitalIn the event this information is protected by the Federal Confidentiality of Alcohol and Drug Abuse Patient Records regulations: The Federal rules restrict any use of the information to criminally investigate or prosecute any alcohol or drug abuse patient.[facility] HospitalIn the event this information is protected by the Federal Confidentiality of Alcohol and Drug Abuse Patient Records regulations: The Federal rules restrict any use of the information to criminally investigate or prosecute any alcohol or drug abuse patient.[facility] HospitalIn the event this information is protected by the Federal Confidentiality of Alcohol and Drug Abuse Patient Records regulations: The Federal rules restrict any use of the information to criminally investigate or prosecute any alcohol or drug abuse patient.[facility] HospitalIn the event this information is protected by the Federal Confidentiality of Alcohol and Drug Abuse Patient Records regulations: The Federal rules restrict any use of the information to criminally investigate or prosecute any alcohol or drug abuse patient.[facility] HospitalIn the event this information is protected by the Federal Confidentiality of Alcohol and Drug Abuse Patient Records regulations: The Federal rules restrict any use of the information to criminally investigate or prosecute any alcohol or drug abuse patient.[facility] HospitalIn the event this information is protected by the Federal Confidentiality of Alcohol and Drug Abuse Patient Records regulations: The Federal rules restrict any use of the information to criminally investigate or prosecute any alcohol or drug abuse patient.[facility] HospitalIn the event this information is protected by the Federal Confidentiality of Alcohol and Drug Abuse Patient Records regulations: The Federal rules restrict any use of the information to criminally investigate or prosecute any alcohol or drug abuse patient.[facility] HospitalIn the event this information is protected by the Federal Confidentiality of Alcohol and Drug Abuse Patient Records regulations: The Federal rules restrict any use of the information to criminally investigate or prosecute any alcohol or drug abuse patient.[facility] HospitalIn the event this information is protected by the Federal Confidentiality of Alcohol and Drug Abuse Patient Records regulations: The Federal rules restrict any use of the information to criminally investigate or prosecute any alcohol or drug abuse patient.[facility] HospitalIn the event this information is protected by the Federal Confidentiality of Alcohol and Drug Abuse Patient Records regulations: The Federal rules restrict any use of the information to criminally investigate or prosecute any alcohol or drug abuse patient.[facility] HospitalIn the event this information is protected by the Federal Confidentiality of Alcohol and Drug Abuse Patient Records regulations: The Federal rules restrict any use of the information to criminally investigate or prosecute any alcohol or drug abuse patient.[facility] HospitalIn the event this information is protected by the Federal Confidentiality of Alcohol and Drug Abuse Patient Records regulations: The Federal rules restrict any use of the information to criminally investigate or prosecute any alcohol or drug abuse patient.[facility] HospitalIn the event this information is protected by the Federal Confidentiality of Alcohol and Drug Abuse Patient Records regulations: The Federal rules restrict any use of the information to criminally investigate or prosecute any alcohol or drug abuse patient.[facility] HospitalIn the event this information is protected by the Federal Confidentiality of Alcohol and Drug Abuse Patient Records regulations: The Federal rules restrict any use of the information to criminally investigate or prosecute any alcohol or drug abuse patient.[facility] HospitalIn the event this information is protected by the Federal Confidentiality of Alcohol and Drug Abuse Patient Records regulations: The Federal rules restrict any use of the information to criminally investigate or prosecute any alcohol or drug abuse patient.[facility] HospitalIn the event this information is protected by the Federal Confidentiality of Alcohol and Drug Abuse Patient Records regulations: The Federal rules restrict any use of the information to criminally investigate or prosecute any alcohol or drug abuse patient.[facility] HospitalIn the event this information is protected by the Federal Confidentiality of Alcohol and Drug Abuse Patient Records regulations: The Federal rules restrict any use of the information to criminally investigate or prosecute any alcohol or drug abuse patient.[facility] HospitalIn the event this information is protected by the Federal Confidentiality of Alcohol and Drug Abuse Patient Records regulations: The Federal rules restrict any use of the information to criminally investigate or prosecute any alcohol or drug abuse patient.[facility] HospitalIn the event this information is protected by the Federal Confidentiality of Alcohol and Drug Abuse Patient Records regulations: The Federal rules restrict any use of the information to criminally investigate or prosecute any alcohol or drug abuse patient.[facility] HospitalIn the event this information is protected by the Federal Confidentiality of Alcohol and Drug Abuse Patient Records regulations: The Federal rules restrict any use of the information to criminally investigate or prosecute any alcohol or drug abuse patient.[facility] HospitalIn the event this information is protected by the Federal Confidentiality of Alcohol and Drug Abuse Patient Records regulations: The Federal rules restrict any use of the information to criminally investigate or prosecute any alcohol or drug abuse patient.[facility] HospitalIn the event this information is protected by the Federal Confidentiality of Alcohol and Drug Abuse Patient Records regulations: The Federal rules restrict any use of the information to criminally investigate or prosecute any alcohol or drug abuse patient.[facility] HospitalIn the event this information is protected by the Federal Confidentiality of Alcohol and Drug Abuse Patient Records regulations: The Federal rules restrict any use of the information to criminally investigate or prosecute any alcohol or drug abuse patient.[facility] HospitalIn the event this information is protected by the Federal Confidentiality of Alcohol and Drug Abuse Patient Records regulations: The Federal rules restrict any use of the information to criminally investigate or prosecute any alcohol or drug abuse patient.[facility] HospitalIn the event this information is protected by the Federal Confidentiality of Alcohol and Drug Abuse Patient Records regulations: The Federal rules restrict any use of the information to criminally investigate or prosecute any alcohol or drug abuse patient.[facility] HospitalIn the event this information is protected by the Federal Confidentiality of Alcohol and Drug Abuse Patient Records regulations: The Federal rules restrict any use of the information to criminally investigate or prosecute any alcohol or drug abuse patient.[facility] HospitalIn the event this information is protected by the Federal Confidentiality of Alcohol and Drug Abuse Patient Records regulations: The Federal rules restrict any use of the information to criminally investigate or prosecute any alcohol or drug abuse patient.[facility] HospitalIn the event this information is protected by the Federal Confidentiality of Alcohol and Drug Abuse Patient Records regulations: The Federal rules restrict any use of the information to criminally investigate or prosecute any alcohol or drug abuse patient.[facility] HospitalIn the event this information is protected by the Federal Confidentiality of Alcohol and Drug Abuse Patient Records regulations: The Federal rules restrict any use of the information to criminally investigate or prosecute any alcohol or drug abuse patient.[facility] HospitalIn the event this information is protected by the Federal Confidentiality of Alcohol and Drug Abuse Patient Records regulations: The Federal rules restrict any use of the information to criminally investigate or prosecute any alcohol or drug abuse patient.[facility] HospitalIn the event this information is protected by the Federal Confidentiality of Alcohol and Drug Abuse Patient Records regulations: The Federal rules restrict any use of the information to criminally investigate or prosecute any alcohol or drug abuse patient.[facility] HospitalIn the event this information is protected by the Federal Confidentiality of Alcohol and Drug Abuse Patient Records regulations: The Federal rules restrict any use of the information to criminally investigate or prosecute any alcohol or drug abuse patient.[facility] HospitalIn the event this information is protected by the Federal Confidentiality of Alcohol and Drug Abuse Patient Records regulations: The Federal rules restrict any use of the information to criminally investigate or prosecute any alcohol or drug abuse patient.[facility] HospitalIn the event this information is protected by the Federal Confidentiality of Alcohol and Drug Abuse Patient Records regulations: The Federal rules restrict any use of the information to criminally investigate or prosecute any alcohol or drug abuse patient.[facility] HospitalIn the event this information is protected by the Federal Confidentiality of Alcohol and Drug Abuse Patient Records regulations: The Federal rules restrict any use of the information to criminally investigate or prosecute any alcohol or drug abuse patient.[facility] HospitalIn the event this information is protected by the Federal Confidentiality of Alcohol and Drug Abuse Patient Records regulations: The Federal rules restrict any use of the information to criminally investigate or prosecute any alcohol or drug abuse patient.[facility] HospitalIn the event this information is protected by the Federal Confidentiality of Alcohol and Drug Abuse Patient Records regulations: The Federal rules restrict any use of the information to criminally investigate or prosecute any alcohol or drug abuse patient.[facility] HospitalIn the event this information is protected by the Federal Confidentiality of Alcohol and Drug Abuse Patient Records regulations: The Federal rules restrict any use of the information to criminally investigate or prosecute any alcohol or drug abuse patient.[facility] HospitalIn the event this information is protected by the Federal Confidentiality of Alcohol and Drug Abuse Patient Records regulations: The Federal rules restrict any use of the information to criminally investigate or prosecute any alcohol or drug abuse patient.[facility] HospitalIn the event this information is protected by the Federal Confidentiality of Alcohol and Drug Abuse Patient Records regulations: The Federal rules restrict any use of the information to criminally investigate or prosecute any alcohol or drug abuse patient.[facility] HospitalIn the event this information is protected by the Federal Confidentiality of Alcohol and Drug Abuse Patient Records regulations: The Federal rules restrict any use of the information to criminally investigate or prosecute any alcohol or drug abuse patient.[facility] HospitalIn the event this information is protected by the Federal Confidentiality of Alcohol and Drug Abuse Patient Records regulations: The Federal rules restrict any use of the information to criminally investigate or prosecute any alcohol or drug abuse patient.[facility] HospitalIn the event this information is protected by the Federal Confidentiality of Alcohol and Drug Abuse Patient Records regulations: The Federal rules restrict any use of the information to criminally investigate or prosecute any alcohol or drug abuse patient.[facility] HospitalIn the event this information is protected by the Federal Confidentiality of Alcohol and Drug Abuse Patient Records regulations: The Federal rules restrict any use of the information to criminally investigate or prosecute any alcohol or drug abuse patient.[facility] HospitalIn the event this information is protected by the Federal Confidentiality of Alcohol and Drug Abuse Patient Records regulations: The Federal rules restrict any use of the information to criminally investigate or prosecute any alcohol or drug abuse patient.[facility] HospitalIn the event this information is protected by the Federal Confidentiality of Alcohol and Drug Abuse Patient Records regulations: The Federal rules restrict any use of the information to criminally investigate or prosecute any alcohol or drug abuse patient.[facility] HospitalIn the event this information is protected by the Federal Confidentiality of Alcohol and Drug Abuse Patient Records regulations: The Federal rules restrict any use of the information to criminally investigate or prosecute any alcohol or drug abuse patient.[facility] HospitalIn the event this information is protected by the Federal Confidentiality of Alcohol and Drug Abuse Patient Records regulations: The Federal rules restrict any use of the information to criminally investigate or prosecute any alcohol or drug abuse patient.[facility] HospitalIn the event this information is protected by the Federal Confidentiality of Alcohol and Drug Abuse Patient Records regulations: The Federal rules restrict any use of the information to criminally investigate or prosecute any alcohol or drug abuse patient.[facility] HospitalIn the event this information is protected by the Federal Confidentiality of Alcohol and Drug Abuse Patient Records regulations: The Federal rules restrict any use of the information to criminally investigate or prosecute any alcohol or drug abuse patient.[facility] HospitalIn the event this information is protected by the Federal Confidentiality of Alcohol and Drug Abuse Patient Records regulations: The Federal rules restrict any use of the information to criminally investigate or prosecute any alcohol or drug abuse patient.[facility] HospitalIn the event this information is protected by the Federal Confidentiality of Alcohol and Drug Abuse Patient Records regulations: The Federal rules restrict any use of the information to criminally investigate or prosecute any alcohol or drug abuse patient.[facility] HospitalIn the event this information is protected by the Federal Confidentiality of Alcohol and Drug Abuse Patient Records regulations: The Federal rules restrict any use of the information to criminally investigate or prosecute any alcohol or drug abuse patient.[facility] HospitalIn the event this information is protected by the Federal Confidentiality of Alcohol and Drug Abuse Patient Records regulations: The Federal rules restrict any use of the information to criminally investigate or prosecute any alcohol or drug abuse patient.[facility] HospitalIn the event this information is protected by the Federal Confidentiality of Alcohol and Drug Abuse Patient Records regulations: The Federal rules restrict any use of the information to criminally investigate or prosecute any alcohol or drug abuse patient.[facility] HospitalIn the event this information is protected by the Federal Confidentiality of Alcohol and Drug Abuse Patient Records regulations: The Federal rules restrict any use of the information to criminally investigate or prosecute any alcohol or drug abuse patient.[facility] HospitalIn the event this information is protected by the Federal Confidentiality of Alcohol and Drug Abuse Patient Records regulations: The Federal rules restrict any use of the information to criminally investigate or prosecute any alcohol or drug abuse patient.[facility] HospitalIn the event this information is protected by the Federal Confidentiality of Alcohol and Drug Abuse Patient Records regulations: The Federal rules restrict any use of the information to criminally investigate or prosecute any alcohol or drug abuse patient.[facility] HospitalIn the event this information is protected by the Federal Confidentiality of Alcohol and Drug Abuse Patient Records regulations: The Federal rules restrict any use of the information to criminally investigate or prosecute any alcohol or drug abuse patient.[facility] HospitalIn the event this information is protected by the Federal Confidentiality of Alcohol and Drug Abuse Patient Records regulations: The Federal rules restrict any use of the information to criminally investigate or prosecute any alcohol or drug abuse patient.[facility] HospitalIn the event this information is protected by the Federal Confidentiality of Alcohol and Drug Abuse Patient Records regulations: The Federal rules restrict any use of the information to criminally investigate or prosecute any alcohol or drug abuse patient.[facility] HospitalIn the event this information is protected by the Federal Confidentiality of Alcohol and Drug Abuse Patient Records regulations: The Federal rules restrict any use of the information to criminally investigate or prosecute any alcohol or drug abuse patient.[facility] HospitalIn the event this information is protected by the Federal Confidentiality of Alcohol and Drug Abuse Patient Records regulations: The Federal rules restrict any use of the information to criminally investigate or prosecute any alcohol or drug abuse patient.[facility] HospitalIn the event this information is protected by the Federal Confidentiality of Alcohol and Drug Abuse Patient Records regulations: The Federal rules restrict any use of the information to criminally investigate or prosecute any alcohol or drug abuse patient.[facility] HospitalIn the event this information is protected by the Federal Confidentiality of Alcohol and Drug Abuse Patient Records regulations: The Federal rules restrict any use of the information to criminally investigate or prosecute any alcohol or drug abuse patient.[facility] HospitalIn the event this information is protected by the Federal Confidentiality of Alcohol and Drug Abuse Patient Records regulations: The Federal rules restrict any use of the information to criminally investigate or prosecute any alcohol or drug abuse patient.[facility] HospitalIn the event this information is protected by the Federal Confidentiality of Alcohol and Drug Abuse Patient Records regulations: The Federal rules restrict any use of the information to criminally investigate or prosecute any alcohol or drug abuse patient.[facility] HospitalIn the event this information is protected by the Federal Confidentiality of Alcohol and Drug Abuse Patient Records regulations: The Federal rules restrict any use of the information to criminally investigate or prosecute any alcohol or drug abuse patient.[facility] HospitalIn the event this information is protected by the Federal Confidentiality of Alcohol and Drug Abuse Patient Records regulations: The Federal rules restrict any use of the information to criminally investigate or prosecute any alcohol or drug abuse patient.[facility] HospitalIn the event this information is protected by the Federal Confidentiality of Alcohol and Drug Abuse Patient Records regulations: The Federal rules restrict any use of the information to criminally investigate or prosecute any alcohol or drug abuse patient.[facility] HospitalIn the event this information is protected by the Federal Confidentiality of Alcohol and Drug Abuse Patient Records regulations: The Federal rules restrict any use of the information to criminally investigate or prosecute any alcohol or drug abuse patient.[facility] HospitalIn the event this information is protected by the Federal Confidentiality of Alcohol and Drug Abuse Patient Records regulations: The Federal rules restrict any use of the information to criminally investigate or prosecute any alcohol or drug abuse patient.[facility] HospitalIn the event this information is protected by the Federal Confidentiality of Alcohol and Drug Abuse Patient Records regulations: The Federal rules restrict any use of the information to criminally investigate or prosecute any alcohol or drug abuse patient.[facility] HospitalIn the event this information is protected by the Federal Confidentiality of Alcohol and Drug Abuse Patient Records regulations: The Federal rules restrict any use of the information to criminally investigate or prosecute any alcohol or drug abuse patient.[facility] HospitalIn the event this information is protected by the Federal Confidentiality of Alcohol and Drug Abuse Patient Records regulations: The Federal rules restrict any use of the information to criminally investigate or prosecute any alcohol or drug abuse patient.[facility] HospitalIn the event this information is protected by the Federal Confidentiality of Alcohol and Drug Abuse Patient Records regulations: The Federal rules restrict any use of the information to criminally investigate or prosecute any alcohol or drug abuse patient.[facility] HospitalIn the event this information is protected by the Federal Confidentiality of Alcohol and Drug Abuse Patient Records regulations: The Federal rules restrict any use of the information to criminally investigate or prosecute any alcohol or drug abuse patient.[facility] HospitalIn the event this information is protected by the Federal Confidentiality of Alcohol and Drug Abuse Patient Records regulations: The Federal rules restrict any use of the information to criminally investigate or prosecute any alcohol or drug abuse patient.[facility] HospitalIn the event this information is protected by the Federal Confidentiality of Alcohol and Drug Abuse Patient Records regulations: The Federal rules restrict any use of the information to criminally investigate or prosecute any alcohol or drug abuse patient.[facility] HospitalIn the event this information is protected by the Federal Confidentiality of Alcohol and Drug Abuse Patient Records regulations: The Federal rules restrict any use of the information to criminally investigate or prosecute any alcohol or drug abuse patient.[facility] HospitalIn the event this information is protected by the Federal Confidentiality of Alcohol and Drug Abuse Patient Records regulations: The Federal rules restrict any use of the information to criminally investigate or prosecute any alcohol or drug abuse patient.[facility] HospitalIn the event this information is protected by the Federal Confidentiality of Alcohol and Drug Abuse Patient Records regulations: The Federal rules restrict any use of the information to criminally investigate or prosecute any alcohol or drug abuse patient.[facility]In the event this information is protected by the Federal Confidentiality of Alcohol and Drug Abuse Patient Records regulations: The Federal rules restrict any use of the information to criminally investigate or prosecute any alcohol or drug abuse patient.[facility]In the event this information is protected by the Federal Confidentiality of Alcohol and Drug Abuse Patient Records regulations: The Federal rules restrict any use of the information to criminally investigate or prosecute any alcohol or drug abuse patient.[facility] HospitalIn the event this information is protected by the Federal Confidentiality of Alcohol and Drug Abuse Patient Records regulations: The Federal rules restrict any use of the information to criminally investigate or prosecute any alcohol or drug abuse patient.[facility]In the event this information is protected by the Federal Confidentiality of Alcohol and Drug Abuse Patient Records regulations: The Federal rules restrict any use of the information to criminally investigate or prosecute any alcohol or drug abuse patient.[facility] HospitalIn the event this information is protected by the Federal Confidentiality of Alcohol and Drug Abuse Patient Records regulations: The Federal rules restrict any use of the information to criminally investigate or prosecute any alcohol or drug abuse patient.[facility] HospitalIn the event this information is protected by the Federal Confidentiality of Alcohol and Drug Abuse Patient Records regulations: The Federal rules restrict any use of the information to criminally investigate or prosecute any alcohol or drug abuse patient.[facility] HospitalIn the event this information is protected by the Federal Confidentiality of Alcohol and Drug Abuse Patient Records regulations: The Federal rules restrict any use of the information to criminally investigate or prosecute any alcohol or drug abuse patient.[facility] HospitalIn the event this information is protected by the Federal Confidentiality of Alcohol and Drug Abuse Patient Records regulations: The Federal rules restrict any use of the information to criminally investigate or prosecute any alcohol or drug abuse patient.[facility] HospitalIn the event this information is protected by the Federal Confidentiality of Alcohol and Drug Abuse Patient Records regulations: The Federal rules restrict any use of the information to criminally investigate or prosecute any alcohol or drug abuse patient.[facility] HospitalIn the event this information is protected by the Federal Confidentiality of Alcohol and Drug Abuse Patient Records regulations: The Federal rules restrict any use of the information to criminally investigate or prosecute any alcohol or drug abuse patient.[facility] HospitalIn the event this information is protected by the Federal Confidentiality of Alcohol and Drug Abuse Patient Records regulations: The Federal rules restrict any use of the information to criminally investigate or prosecute any alcohol or drug abuse patient.[facility] HospitalIn the event this information is protected by the Federal Confidentiality of Alcohol and Drug Abuse Patient Records regulations: The Federal rules restrict any use of the information to criminally investigate or prosecute any alcohol or drug abuse patient.[facility] HospitalIn the event this information is protected by the Federal Confidentiality of Alcohol and Drug Abuse Patient Records regulations: The Federal rules restrict any use of the information to criminally investigate or prosecute any alcohol or drug abuse patient.[facility] HospitalIn the event this information is protected by the Federal Confidentiality of Alcohol and Drug Abuse Patient Records regulations: The Federal rules restrict any use of the information to criminally investigate or prosecute any alcohol or drug abuse patient.[facility] HospitalIn the event this information is protected by the Federal Confidentiality of Alcohol and Drug Abuse Patient Records regulations: The Federal rules restrict any use of the information to criminally investigate or prosecute any alcohol or drug abuse patient.[facility] HospitalIn the event this information is protected by the Federal Confidentiality of Alcohol and Drug Abuse Patient Records regulations: The Federal rules restrict any use of the information to criminally investigate or prosecute any alcohol or drug abuse patient.[facility] HospitalIn the event this information is protected by the Federal Confidentiality of Alcohol and Drug Abuse Patient Records regulations: The Federal rules restrict any use of the information to criminally investigate or prosecute any alcohol or drug abuse patient.[facility] HospitalIn the event this information is protected by the Federal Confidentiality of Alcohol and Drug Abuse Patient Records regulations: The Federal rules restrict any use of the information to criminally investigate or prosecute any alcohol or drug abuse patient.[facility] HospitalIn the event this information is protected by the Federal Confidentiality of Alcohol and Drug Abuse Patient Records regulations: The Federal rules restrict any use of the information to criminally investigate or prosecute any alcohol or drug abuse patient.[facility] HospitalIn the event this information is protected by the Federal Confidentiality of Alcohol and Drug Abuse Patient Records regulations: The Federal rules restrict any use of the information to criminally investigate or prosecute any alcohol or drug abuse patient.[facility] HospitalIn the event this information is protected by the Federal Confidentiality of Alcohol and Drug Abuse Patient Records regulations: The Federal rules restrict any use of the information to criminally investigate or prosecute any alcohol or drug abuse patient.[facility] HospitalIn the event this information is protected by the Federal Confidentiality of Alcohol and Drug Abuse Patient Records regulations: The Federal rules restrict any use of the information to criminally investigate or prosecute any alcohol or drug abuse patient.[facility] HospitalIn the event this information is protected by the Federal Confidentiality of Alcohol and Drug Abuse Patient Records regulations: The Federal rules restrict any use of the information to criminally investigate or prosecute any alcohol or drug abuse patient.[facility] HospitalIn the event this information is protected by the Federal Confidentiality of Alcohol and Drug Abuse Patient Records regulations: The Federal rules restrict any use of the information to criminally investigate or prosecute any alcohol or drug abuse patient.[facility] HospitalIn the event this information is protected by the Federal Confidentiality of Alcohol and Drug Abuse Patient Records regulations: The Federal rules restrict any use of the information to criminally investigate or prosecute any alcohol or drug abuse patient.[facility] HospitalIn the event this information is protected by the Federal Confidentiality of Alcohol and Drug Abuse Patient Records regulations: The Federal rules restrict any use of the information to criminally investigate or prosecute any alcohol or drug abuse patient.[facility] HospitalIn the event this information is protected by the Federal Confidentiality of Alcohol and Drug Abuse Patient Records regulations: The Federal rules restrict any use of the information to criminally investigate or prosecute any alcohol or drug abuse patient.[facility] HospitalIn the event this information is protected by the Federal Confidentiality of Alcohol and Drug Abuse Patient Records regulations: The Federal rules restrict any use of the information to criminally investigate or prosecute any alcohol or drug abuse patient.[facility] HospitalIn the event this information is protected by the Federal Confidentiality of Alcohol and Drug Abuse Patient Records regulations: The Federal rules restrict any use of the information to criminally investigate or prosecute any alcohol or drug abuse patient.[facility] HospitalIn the event this information is protected by the Federal Confidentiality of Alcohol and Drug Abuse Patient Records regulations: The Federal rules restrict any use of the information to criminally investigate or prosecute any alcohol or drug abuse patient.[facility] HospitalIn the event this information is protected by the Federal Confidentiality of Alcohol and Drug Abuse Patient Records regulations: The Federal rules restrict any use of the information to criminally investigate or prosecute any alcohol or drug abuse patient.[facility] HospitalIn the event this information is protected by the Federal Confidentiality of Alcohol and Drug Abuse Patient Records regulations: The Federal rules restrict any use of the information to criminally investigate or prosecute any alcohol or drug abuse patient.[facility] HospitalIn the event this information is protected by the Federal Confidentiality of Alcohol and Drug Abuse Patient Records regulations: The Federal rules restrict any use of the information to criminally investigate or prosecute any alcohol or drug abuse patient.[facility] HospitalIn the event this information is protected by the Federal Confidentiality of Alcohol and Drug Abuse Patient Records regulations: The Federal rules restrict any use of the information to criminally investigate or prosecute any alcohol or drug abuse patient.[facility] HospitalIn the event this information is protected by the Federal Confidentiality of Alcohol and Drug Abuse Patient Records regulations: The Federal rules restrict any use of the information to criminally investigate or prosecute any alcohol or drug abuse patient.[facility] HospitalIn the event this information is protected by the Federal Confidentiality of Alcohol and Drug Abuse Patient Records regulations: The Federal rules restrict any use of the information to criminally investigate or prosecute any alcohol or drug abuse patient.[facility] HospitalIn the event this information is protected by the Federal Confidentiality of Alcohol and Drug Abuse Patient Records regulations: The Federal rules restrict any use of the information to criminally investigate or prosecute any alcohol or drug abuse patient.[facility] HospitalIn the event this information is protected by the Federal Confidentiality of Alcohol and Drug Abuse Patient Records regulations: The Federal rules restrict any use of the information to criminally investigate or prosecute any alcohol or drug abuse patient.[facility] HospitalIn the event this information is protected by the Federal Confidentiality of Alcohol and Drug Abuse Patient Records regulations: The Federal rules restrict any use of the information to criminally investigate or prosecute any alcohol or drug abuse patient.[facility] HospitalIn the event this information is protected by the Federal Confidentiality of Alcohol and Drug Abuse Patient Records regulations: The Federal rules restrict any use of the information to criminally investigate or prosecute any alcohol or drug abuse patient.[facility] HospitalIn the event this information is protected by the Federal Confidentiality of Alcohol and Drug Abuse Patient Records regulations: The Federal rules restrict any use of the information to criminally investigate or prosecute any alcohol or drug abuse patient.[facility] HospitalIn the event this information is protected by the Federal Confidentiality of Alcohol and Drug Abuse Patient Records regulations: The Federal rules restrict any use of the information to criminally investigate or prosecute any alcohol or drug abuse patient.[facility] HospitalIn the event this information is protected by the Federal Confidentiality of Alcohol and Drug Abuse Patient Records regulations: The Federal rules restrict any use of the information to criminally investigate or prosecute any alcohol or drug abuse patient.[facility] HospitalIn the event this information is protected by the Federal Confidentiality of Alcohol and Drug Abuse Patient Records regulations: The Federal rules restrict any use of the information to criminally investigate or prosecute any alcohol or drug abuse patient.[facility] HospitalIn the event this information is protected by the Federal Confidentiality of Alcohol and Drug Abuse Patient Records regulations: The Federal rules restrict any use of the information to criminally investigate or prosecute any alcohol or drug abuse patient.[facility] HospitalIn the event this information is protected by the Federal Confidentiality of Alcohol and Drug Abuse Patient Records regulations: The Federal rules restrict any use of the information to criminally investigate or prosecute any alcohol or drug abuse patient.[facility] HospitalIn the event this information is protected by the Federal Confidentiality of Alcohol and Drug Abuse Patient Records regulations: The Federal rules restrict any use of the information to criminally investigate or prosecute any alcohol or drug abuse patient.[facility] HospitalIn the event this information is protected by the Federal Confidentiality of Alcohol and Drug Abuse Patient Records regulations: The Federal rules restrict any use of the information to criminally investigate or prosecute any alcohol or drug abuse patient.[facility] HospitalIn the event this information is protected by the Federal Confidentiality of Alcohol and Drug Abuse Patient Records regulations: The Federal rules restrict any use of the information to criminally investigate or prosecute any alcohol or drug abuse patient.[facility] HospitalIn the event this information is protected by the Federal Confidentiality of Alcohol and Drug Abuse Patient Records regulations: The Federal rules restrict any use of the information to criminally investigate or prosecute any alcohol or drug abuse patient.[facility] HospitalIn the event this information is protected by the Federal Confidentiality of Alcohol and Drug Abuse Patient Records regulations: The Federal rules restrict any use of the information to criminally investigate or prosecute any alcohol or drug abuse patient.[facility] HospitalIn the event this information is protected by the Federal Confidentiality of Alcohol and Drug Abuse Patient Records regulations: The Federal rules restrict any use of the information to criminally investigate or prosecute any alcohol or drug abuse patient.[facility] HospitalIn the event this information is protected by the Federal Confidentiality of Alcohol and Drug Abuse Patient Records regulations: The Federal rules restrict any use of the information to criminally investigate or prosecute any alcohol or drug abuse patient.[facility] HospitalIn the event this information is protected by the Federal Confidentiality of Alcohol and Drug Abuse Patient Records regulations: The Federal rules restrict any use of the information to criminally investigate or prosecute any alcohol or drug abuse patient.[facility] HospitalIn the event this information is protected by the Federal Confidentiality of Alcohol and Drug Abuse Patient Records regulations: The Federal rules restrict any use of the information to criminally investigate or prosecute any alcohol or drug abuse patient.[facility] HospitalIn the event this information is protected by the Federal Confidentiality of Alcohol and Drug Abuse Patient Records regulations: The Federal rules restrict any use of the information to criminally investigate or prosecute any alcohol or drug abuse patient.[facility] HospitalIn the event this information is protected by the Federal Confidentiality of Alcohol and Drug Abuse Patient Records regulations: The Federal rules restrict any use of the information to criminally investigate or prosecute any alcohol or drug abuse patient.[facility] HospitalIn the event this information is protected by the Federal Confidentiality of Alcohol and Drug Abuse Patient Records regulations: The Federal rules restrict any use of the information to criminally investigate or prosecute any alcohol or drug abuse patient.[facility] HospitalIn the event this information is protected by the Federal Confidentiality of Alcohol and Drug Abuse Patient Records regulations: The Federal rules restrict any use of the information to criminally investigate or prosecute any alcohol or drug abuse patient.[facility] HospitalIn the event this information is protected by the Federal Confidentiality of Alcohol and Drug Abuse Patient Records regulations: The Federal rules restrict any use of the information to criminally investigate or prosecute any alcohol or drug abuse patient.[facility] HospitalIn the event this information is protected by the Federal Confidentiality of Alcohol and Drug Abuse Patient Records regulations: The Federal rules restrict any use of the information to criminally investigate or prosecute any alcohol or drug abuse patient.[facility] HospitalIn the event this information is protected by the Federal Confidentiality of Alcohol and Drug Abuse Patient Records regulations: The Federal rules restrict any use of the information to criminally investigate or prosecute any alcohol or drug abuse patient.[facility] HospitalIn the event this information is protected by the Federal Confidentiality of Alcohol and Drug Abuse Patient Records regulations: The Federal rules restrict any use of the information to criminally investigate or prosecute any alcohol or drug abuse patient.[facility] HospitalIn the event this information is protected by the Federal Confidentiality of Alcohol and Drug Abuse Patient Records regulations: The Federal rules restrict any use of the information to criminally investigate or prosecute any alcohol or drug abuse patient.[facility] HospitalIn the event this information is protected by the Federal Confidentiality of Alcohol and Drug Abuse Patient Records regulations: The Federal rules restrict any use of the information to criminally investigate or prosecute any alcohol or drug abuse patient.[facility] HospitalIn the event this information is protected by the Federal Confidentiality of Alcohol and Drug Abuse Patient Records regulations: The Federal rules restrict any use of the information to criminally investigate or prosecute any alcohol or drug abuse patient.[facility] HospitalIn the event this information is protected by the Federal Confidentiality of Alcohol and Drug Abuse Patient Records regulations: The Federal rules restrict any use of the information to criminally investigate or prosecute any alcohol or drug abuse patient.[facility] HospitalIn the event this information is protected by the Federal Confidentiality of Alcohol and Drug Abuse Patient Records regulations: The Federal rules restrict any use of the information to criminally investigate or prosecute any alcohol or drug abuse patient.[facility] HospitalIn the event this information is protected by the Federal Confidentiality of Alcohol and Drug Abuse Patient Records regulations: The Federal rules restrict any use of the information to criminally investigate or prosecute any alcohol or drug abuse patient.[facility] Care Teams (unrecognized sec tion and [...] S tart: October 19, 2024 Nikko Corona DO Attending Provider Active Sta rt: October 19, 2024 Team Status: Active Member Role Status Dates Janet Dillard DO Primary Care Provider Active Team Status: Inactive Member Role Status Dates Janet Dillard DO Primary Care Provider Active Nikko Astorga DO Attending Provider Active Team Status: Inactive Member Role Status Dates DEEPA Ann Attending Provider Active Team Status: Inactive Member Role Status Dates Janet G Gilma , DO Primary Care Provider Active Kaylene Lilly , Attending Provider Active Rocket 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 Start Date End Date Treasure Rita Cha PCP - General 01/28/07 Janet Dillard, DO [address] [facility] [address] Referring Family Practice 07/14/21 Rocket 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 Start Date End Date Rita Amanda PCP - General 01/28/07 Janet Dillard, DO [address] [place] [address] Referring Family Practice 07/14/21 Rocket 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 Start Date End Date Rita Amanda PCP - General 01/28/07 Janet Dillard, DO [address] [facility] [address] Referring Family Practice 07/14/21 Rocket 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 Start Date End Date Rita Amanda PCP - General 01/28/07 Janet Dillard, DO [address] [facility] [address] Referring Family Practice 07/14/21 Rocket 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 Start Date End Date Rita Amanda PCP - General 01/28/07 Janet Dillard, DO [address] [place] [address] Referring Family Practice 07/14/21 Rocket 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 Start Date End Date Rita Amanda PCP - General 01/28/07 Janet Dillard, DO [address] [place] [address] Referring Family Practice 07/14/21 Rocket 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 Start Date End Date Rita Amanda PCP - General 01/28/07 Janet Dillard, DO [address] [place] [address] Referring Family Practice 07/14/21 Rocket 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 Start Date End Date Rita Amanda PCP - General 01/28/07 Janet Dillard, DO [address] [place] [address] Referring Family Practice 07/14/21 Rocket 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 Start Date End Date Rita Amanda PCP - General 01/28/07 Janet Dillard, DO [address] [place] [address] Referring Family Practice 07/14/21 Rocket 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 Start Date End Date Rita Amanda PCP - General 01/28/07 Janet Dillard, DO [address] [place] [address] Referring Family Practice 07/14/21 Team Status: Inactive Member Role Status Dates HENRIK Haas Attending Provider Active Emily Benson APRN Referring Provider Active Janet Dillard DO Primary Care Provider Active Rocket 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 Start Date End Date Rita Amanda PCP - General 01/28/07 Janet Dillard, DO [address] [facility] [address] Referring Family Medicine 07/14/21 Rocket 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 Start Date End Date Rita Amanda PCP - General 01/28/07 Janet Dillard, DO [address] [place] [facility] [place] [place] [address] Referring Family Medicine 07/14/21 Team Status: Inactive Member Role Status Dates DEEPA Ann Attending Provider Active [facility]IC[facility] Primary Care Provider Active Rocket 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 Start Date End Date Rita Amanda PCP - General 01/28/07 Janet Dillard, DO [address] [place] [facility] [place] [place] [address] Referring Family Medicine 07/14/21 Rocket 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 Start Date End Date Rita Amanda PCP - General 01/28/07 Janet Dillard, DO [address] [place] [facility] [place] [place] [address] Referring Family Medicine 07/14/21 Rocket 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 Start Date End Date Rita Amanda PCP - General 01/28/07 Janet Dillard, DO [address] [place] [facility] [place] [address] Referring Family Medicine 07/14/21 Rocket 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 Start Date End Date Rita Amanda PCP - General 01/28/07 Janet Dillardce, DO [address] [place] [address] Referring Family Medicine 07/14/21 Rocket 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 Start Date End Date ProvidenceRita swannd PCP - General 01/28/07 Janet Dillard, DO [address] [place] [address] Referring Family Medicine 07/14/21 Rocket 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 Start Date End Date TreasureRitad PCP - General 01/28/07 Janet Dillard, DO [address] [place] [address] Referring Family Medicine 07/14/21 Rocket 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 Start Date End Date Rita Amanda PCP - General 01/28/07 Janet Dillard, DO [address] [place] [address] Referring Family Medicine 07/14/21 Rocket 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 Start Date End Date TreasureRitad PCP - General 01/28/07 Janet Dillard, DO [address] [place] [address] Referring Family Medicine 07/14/21 Rocket 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 Start Date End Date Rita Amandad PCP - General 01/28/07 Janet Dillard DO [address] [facility] [place] [address] Referring Family Medicine 07/14/21 Rocket 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 Start Date End Date Rita Amandad PCP - General 01/28/07 Janet Dillard DO [address] [facility] [place] [address] Referring Family Medicine 07/14/21 Rocket 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 Start Date End Date TreasureRita swannd PCP - General 01/28/07 Janet Dillard DO [address] [facility] [address] Referring Family Medicine 07/14/21 Rocket 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 Start Date End Date Sunny Jenkins MD [address] [place] [address] PCP - General Internal Medicine 08/22/23 Janet Dillard DO [address] [facility] [place] [address] Referring Family Medicine 07/14/21 Yvonne Baumann, RN [address] [address] Specialty Network Cabler Hematology/Oncology 09/23/23 Mitch Neri MD [address] [place] [address] Physician Hematology/Oncology 09/23/23 Cathy Templeton PA-C [address] [place] [address] [place] [address] Physician Safety Sealer Hematology/Oncology 09/23/23 Deepika Garcia LSW Rehabilitation Services Counselor 09/24/23 Rocket 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 Start Date End Date Sunny Jenkins MD [address], [place] [address] PCP - General Internal Medicine 08/22/23 Janet Dillard DO [address] [facility] [place] [address] Referring Family Medicine 07/14/21 Yvonne Baumann, RN [address] [facility] [place] [address] Specialty Network Cabler Hematology/Oncology 09/23/23 Mitch Neri MD [address] [place] [address] Physician Hematology/Oncology 09/23/23 Cathy Templeton PA-C [address] [place] [address] [place] [address] Physician Safety Sealer Hematology/Oncology 09/23/23 Deepika Garcia LSW Rehabilitation Services Counselor 09/24/23 Rocket 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 Start Date End Date Sunny Jenkins MD [address] [place] [address] PCP - General Internal Medicine 08/22/23 Janet Dillard DO [address] [place] [address] Referring Family Medicine 07/14/21 Yvonne Baumann RN [address] [facility] [place] [address] Specialty Network Cabler Hematology/Oncology 09/23/23 Mitch Neri MD [address] [facility] [place] [address] Physician Hematology/Oncology 09/23/23 Cathy Templeton, PALeonelC [address] [facility] [place] [address] Physician Safety Sealer Hematology/Oncology 09/23/23 Deepika Garcia LSW Rehabilitation Services Counselor 09/24/23 Rocket 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 Start Date End Date Sunny Jenkins MD [address] [place] [address] PCP - General Internal Medicine 08/22/23 Janet Dillard DO [address] [place] [address] Referring Family Medicine 07/14/21 Yvonne Baumann RN [address] [facility] [place] [address] Specialty Network Cabler Hematology/Oncology 09/23/23 Mitch Neri MD [address] [facility] [place] [address] Physician Hematology/Oncology 09/23/23 Cathy Templeton PA-C [address] [facility] [place] [address] Physician Safety Sealer Hematology/Oncology 09/23/23 Deepika Garcia LSW Rehabilitation Services Counselor 09/24/[address] [facility] [place] [address] Registered Dietitian Nutrition 10/22/23 Rocket 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 Start Date End Date Sunny Jenkins MD [address], [place] [address] PCP - General Internal Medicine 08/22/23 Janet Dillard DO [address] [place] [address] Referring Family Medicine 07/14/21 Yvonne Baumann RN [address] [facility] [place] [address] Specialty Network Cabler Hematology/Oncology 09/23/23 Mitch Neri MD [address] [place] [address] [place] [address] Physician Hematology/Oncology 09/23/23 Cathy Templeton PAShlomo [address] [place] [address] [place] [address] Physician Safety Sealer Hematology/Oncology 09/23/23 Deepika Garcia [facility] Rehabilitation Services Counselor 09/24/[address] [place] [address] [place] [address] Registered Dietitian Nutrition 10/22/23 Rocket 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 Start Date End Date Sunny Jenkins MD [address] [place] [address] PCP - General Internal Medicine 08/22/23 Janet Dillard DO [address] [place], [place] [id number] Referring Family Medicine 07/14/21 Yvonne Baumann, RN [address] [facility] [place] [address] Specialty Network Cabler Hematology/Oncology 09/23/23 Mitch Neri MD [address] [place] [address] Physician Hematology/Oncology 09/23/23 Cathy Templeton PA-C [address] [address] Physician Safety Sealer Hematology/Oncology 09/23/23 Deepika Garcia LSW Rehabilitation Services Counselor 09/24/[address] [facility] [place] [address] Registered Dietitian Nutrition 10/22/23 Rocket 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 Start Date End Date Sunny Jenkins MD [address] [facility] [place], [place] [id number] PCP - General Internal Medicine 08/22/23 Janet Dillard DO [address] [place] [address] Referring Family Medicine 07/14/21 Yvonne Baumann RN [address] [place] [address] Specialty Network Cabler Hematology/Oncology 09/23/23 Mitch Neri MD [address] [facility] [place] [address] Physician Hematology/Oncology 09/23/23 Cathy Templeton PA-C [address] [place] [address] [place] [address] Physician Safety Sealer Hematology/Oncology 09/23/23 Deepika Garcia, PUBLICITY PERSON Rehabilitation Services Counselor 09/24/[address] [place] [address] [place] [address] Registered Dietitian Nutrition 10/22/23 Rocket 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 Start Date End Date Sunny Jenkins MD [address] [place] [address] PCP - General Internal Medicine 08/22/23 Janet Dillard DO [address] [place], [place] [id number] Referring Family Medicine 07/14/21 Yvonne Baumann, RN [address] [place] [address] [place] [address] Specialty Network Cabler Hematology/Oncology 09/23/23 Mitch Neri MD [address] [place] [address] [place] [address] Physician Hematology/Oncology 09/23/23 Cathy Templeton PA-C [address] [place] [address] [place] [address] Physician Safety Sealer Hematology/Oncology 09/23/23 Deepika Garcia, PUBLICITY PERSON Rehabilitation Services Counselor 09/24/[address] [place] [address] [place] [address] Registered Dietitian Nutrition 10/22/23 Rocket 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 Start Date End Date Sunny Jenkins MD [address] [place] [address] PCP - General Internal Medicine 08/22/23 Janet Dillard DO [address] [facility] [place], [place] [address] Referring Family Medicine 07/14/21 Yvonne Baumann, MALORIE [address] [facility] [place] [address] Specialty Network Cabler Hematology/Oncology 09/23/23 Mitch Neri MD [address] [facility] [place] [address] Physician Hematology/Oncology 09/23/23 Cathy Templeton, PALeonelC [address] [facility] [place] [address] Physician Safety Sealer Hematology/Oncology 09/23/23 Deepika Garcia LSW Rehabilitation Services Counselor 09/24/[address] [place] [address] [place] [address] Registered Dietitian Nutrition 10/22/23 Rocket 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 Start Date End Date Sunny Jenkins MD [address] [facility] [place], [place] 355[address]20 PCP - General Internal Medicine 08/22/23 Janet Dillard DO [address] [facility] [place] [address] Referring Family Medicine 07/14/21 Yvonne Baumann RN [address] [facility] [place] [address] Specialty Network Cabler Hematology/Oncology 09/23/23 Mitch Neri MD [address] [facility] [place] [address] Physician Hematology/Oncology 09/23/23 Cathy Templeton PA-C [address] [facility] [place] [address] Physician Safety Sealer Hematology/Oncology 09/23/23 Deepika Garcia, PUBLICITY PERSON Rehabilitation Services Counselor 09/24/[address] [place] [address] [place] [address] Registered Dietitian Nutrition 10/22/23 Rocket 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 Start Date End Date Gregory, Sunny Saunders MD [address] [place] [address] PCP - General Internal Medicine 08/22/23 Janet Dillard DO [address] [place] [address] Referring Family Medicine 07/14/21 Yvonne Baumann, RN [address] [facility] [place] [address] Specialty Network Cabler Hematology/Oncology 09/23/23 Mitch Neri MD [address] [facility] [place] [address] Physician Hematology/Oncology 09/23/23 Cathy Templeton PA-C [address] [facility] [place] [address] Physician Safety Sealer Hematology/Oncology 09/23/23 Deepika Garcia, PUBLICITY PERSON Rehabilitation Services Counselor 09/24/[address] [facility] [place] [address] Registered Dietitian Nutrition 10/22/23 Rocket 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 Start Date End Date Gregory, Muhamid M, MD [address] [place], [place] [id number] PCP - General Internal Medicine 08/22/23 Janet Dillard DO [address] [facility] [place] [address] Referring Family Medicine 07/14/21 Yvonne Baumann, MALORIE [address] [facility] [place] [address] Specialty Network Cabler Hematology/Oncology 09/23/23 Mitch Neri MD [address] [place] [address] [place] [address] Physician Hematology/Oncology 09/23/23 Cathy Templeton PA-C [address] [place] [address] [place] [address] Physician Safety Sealer Hematology/Oncology 09/23/23 Deepika Garcia LSW Rehabilitation Services Counselor 09/24/[address] [place] [address] [place] [address] Registered Dietitian Nutrition 10/22/23 Rocket 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 Start Date End Date Sunny Jenkins MD [address] [place] [address] PCP - General Internal Medicine 08/22/23 Janet Dillard DO [address] [facility] [place] [address] Referring Family Medicine 07/14/21 Yvonne Baumann RN [address] [facility] [place] [address] Specialty Network Cabler Hematology/Oncology 09/23/23 Mitch Neri MD [address] [place] [address] [place] [address] Physician Hematology/Oncology 09/23/23 Cathy Templeton PA-C [address] [place] [address] [place] [address] Physician Safety Sealer Hematology/Oncology 09/23/23 Deepika Garcia, PUBLICITY PERSON Rehabilitation Services Counselor 09/24/[address] [place] [address] [place] [address] Registered Dietitian Nutrition 10/22/23 Rocket 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 Start Date End Date Sunny Jenkins MD [address], [place], [place] [address] PCP - General Internal Medicine 08/22/23 Janet Dillard DO [address] [place] [address] Referring Family Medicine 07/14/21 Yvonne Baumann, RN [address] [facility] [place] [address] Specialty Network Cabler Hematology/Oncology 09/23/23 Mitch Neri MD [address] [place] [address] [place] [address] Physician Hematology/Oncology 09/23/23 Cathy Templeton PA-C [address] [place] [address] [place] [address] Physician Safety Sealer Hematology/Oncology 09/23/23 Deepika Garcia, PUBLICITY PERSON Rehabilitation Services Counselor 09/24/[address] [facility] [place] [address] Registered Dietitian Nutrition 10/22/23 Rocket 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 Start Date End Date Sunny Jenkins MD [address] [place] [address] PCP - General Internal Medicine 08/22/23 Janet Dillard DO [address] [place] [address] Referring Family Medicine 07/14/21 Yvonne Baumann RN [address] [facility] [place] [address] Specialty Network Cabler Hematology/Oncology 09/23/23 Mitch Neri MD [address] [place] [address] [address], [facility] Physician Hematology/Oncology 09/23/23 Cathy Templeton, PA-C [address] [place] [address] [place] [address] Physician Safety Sealer Hematology/Oncology 09/23/23 Deepika Garcia LSW Rehabilitation Services Counselor 09/24/[address] [place] [address] [place] [address] Registered Dietitian Nutrition 10/22/23 Rocket 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 Start Date End Date Sunny Jenkins MD [address] [place] [address] PCP - General Internal Medicine 08/22/23 Janet Dillard DO [address] [place], [place] [id number] Referring Family Medicine 07/14/21 Yvonne Baumann RN [address] [facility] [place] [address] Specialty Network Cabler Hematology/Oncology 09/23/23 Mitch Neri MD [address] [place] [address] Physician Hematology/Oncology 09/23/23 Cathy Templeton PA-C [address] [facility] [place] [address] Physician Safety Sealer Hematology/Oncology 09/23/23 Deepika Garcia LSW Rehabilitation Services Counselor 09/24/[address] [facility] [place] [address] Registered Dietitian Nutrition 10/22/23 Rocket 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 Start Date End Date Sunny Jenkins MD [address], [place], [place] [address] PCP - General Internal Medicine 08/22/23 Janet Dillard DO [address] [place], [place] [address] Referring Family Medicine 07/14/21 Yvonne Baumann RN [address] [facility] [place] [address] Specialty Network Cabler Hematology/Oncology 09/23/23 Mitch Neri MD [address] [facility] [place] [address] Physician Hematology/Oncology 09/23/23 Cathy Templeton PA-C [address] [facility] [place] [address] Physician Safety Sealer Hematology/Oncology 09/23/23 Deepika Garcia, PUBLICITY PERSON Rehabilitation Services Counselor 09/24/[address] [facility] [place] [address] Registered Dietitian Nutrition 10/22/23 Rocket 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 Start Date End Date Sunny Jenkins MD [address] [place] [address] PCP - General Internal Medicine 08/22/23 Janet Dillard DO [address] [place], [place] 55[address] Referring Family Medicine 07/14/21 Yvonne Baumann, MALORIE [address] [facility] [address] [place], [place] 72[address]70 Specialty Network Cabler Hematology/Oncology 09/23/23 Mitch Neri MD [address] [place] [address] [place] [address] Physician Hematology/Oncology 09/23/23 Cathy Templeton PA-C [address] [facility] [place] [address] Physician Safety Sealer Hematology/Oncology 09/23/23 Deepika Garcia, [facility] Rehabilitation Services Counselor 09/24/[address] [facility] [place] [address] Registered Dietitian Nutrition 10/22/23 Rocket 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 Start Date End Date Sunny Jenkins MD [address] [place] [id number] PCP - General Internal Medicine 08/22/23 Janet Dillard DO [address] [facility] [place], [place] 532[address] Referring Family Medicine 07/14/21 Yvonne Baumann, RN [address] [facility] [place] [address] Specialty Network Cabler Hematology/Oncology 09/23/23 Mitch Neri MD [address] [place] [address] [place] [address] Physician Hematology/Oncology 09/23/23 Cathy Templeton, PA-C [address] [place] [address] [place] [address] Physician Safety Sealer Hematology/Oncology 09/23/23 Deepika Garcia LSW Rehabilitation Services Counselor 09/24/[address] [place] [address] [place] [address] Registered Dietitian Nutrition 10/22/23 Rocket 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 Start Date End Date Sunny Jenkins MD [address] [facility] [place], [place] [address] PCP - General Internal Medicine 08/22/23 Janet Dillard DO [address] [facility] [address] Referring Family Medicine 07/14/21 Yvonne Baumann, RN [address] [facility] [place] [address] Specialty Network Cabler Hematology/Oncology 09/23/23 Mitch Neri MD [address] [facility] [place] [address] Physician Hematology/Oncology 09/23/23 Cathy Templeton PA-C [address] [facility] [place] [address] Physician Safety Sealer Hematology/Oncology 09/23/23 Deepika Garcia, PUBLICITY PERSON Rehabilitation Services Counselor 09/24/[address] [facility] [place] [address] Registered Dietitian Nutrition 10/22/23 Rocket 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 Start Date End Date Sunny Jenkins MD [address], [facility] [place], [place] [address]20 PCP - General Internal Medicine 08/22/23 Janet Dillard DO [address] [place] [address] Referring Family Medicine 07/14/21 Yvonne Baumann, RN [address] [facility] [address] [place], [place] 1525770 Specialty Network Cabler Hematology/Oncology 09/23/23 Mitch Neri MD [address] [facility] [place] [address] Physician Hematology/Oncology 09/23/23 Cathy Templeton PA-C [address] [place], [place] [address] [facility] [place] [address] Physician Safety Sealer Hematology/Oncology 09/23/23 Deepika Garcia, DEEP Rehabilitation Services Counselor 09/24/[address] [facility] [place] [address] Registered Dietitian Nutrition 10/22/23 Rocket 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 Start Date End Date Sunny Jenkins MD [address] [place] [address] PCP - General Internal Medicine 08/22/23 Janet Dillard DO [address] [place] [address] Referring Family Medicine 07/14/21 Yvonne Baumann RN [address] [facility] [place] [address] Specialty Network Cabler Hematology/Oncology 09/23/23 Mitch Neri MD [address] [place] [address] [place] [address] Physician Hematology/Oncology 09/23/23 Cathy Templeton, PA-C [address] [place] [address] [place] [address] Physician Safety Sealer Hematology/Oncology 09/23/23 Deepika Garcia LSW Rehabilitation Services Counselor 09/24/[address] [place] [address] [place] [address] Registered Dietitian Nutrition 10/22/23 Rocket 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 Start Date End Date Sunny Jenkins MD [address] [place] [address] PCP - General Internal Medicine 08/22/23 Janet Dillard DO [address] [facility] [place], [place] [id number] Referring Family Medicine 07/14/21 Yvonne Baumann RN [address] [facility] [place] [address] Specialty Network Cabler Hematology/Oncology 09/23/23 Mitch Neri MD [address] [facility] [place] [address] Physician Hematology/Oncology 09/23/23 Cathy Templeton PA-C [address] [place] [address] [place] [address] Physician Safety Sealer Hematology/Oncology 09/23/23 Deepika Garcia LSW Rehabilitation Services Counselor 09/24/[address] [place] [address] [place] [address] Registered Dietitian Nutrition 10/22/23 Team Status: Inactive Member Role Status Dates Janet Dillard DO Primary Care Provider Active Start: January 06, 2024 End: January 06, 2024 Citlali Strickland APRN Attending Provider Active Start: January 06, 2024 End: January 06, 2024 Rocket 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 Start Date End Date Sunny Jenkins MD [address] [facility] [place], [place] [id number] PCP - General Internal Medicine 08/22/23 Janet Dillard DO [address] [place], [place] [phone] Referring Family Medicine 07/14/21 Yvonne Baumann, RN [address] [facility] [place] [address] Specialty Network Cabler Hematology/Oncology 09/23/23 Mitch Neri MD [address] [place] [address] [place] [address] Physician Hematology/Oncology 09/23/23 Cathy Templeton PA-C [address] [place] [address] [place] [address] Physician Safety Sealer Hematology/Oncology 09/23/23 Deepika Garcia, PUBLICITY PERSON Rehabilitation Services Counselor 09/24/[address] [facility] [place] [address] Registered Dietitian Nutrition 10/22/23 Rocket 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 Start Date End Date Sunny Jenkins MD [address] [place] [address] PCP - General Internal Medicine 08/22/23 Janet Dillard DO [address] [place], [place] 513[address] Referring Family Medicine 07/14/21 Yvonne Baumann RN [address] [facility] [place] [address] Specialty Network Cabler Hematology/Oncology 09/23/23 Mitch Neri MD [address] [place] [address] [place] [address] Physician Hematology/Oncology 09/23/23 Cathy Templeton PA-C [address] [facility] [place] [address] Physician Safety Sealer Hematology/Oncology 09/23/23 Deepika Garcia, PUBLICITY PERSON Rehabilitation Services Counselor 09/24/[address] [facility] [place] [address] Registered Dietitian Nutrition 10/22/23 Rocket 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 Start Date End Date Sunny Jenkins MD [address] [place] [place] [id number] PCP - General Internal Medicine 08/22/23 Janet Dillard DO [address] [facility] [place] 3099220 Referring Family Medicine 07/14/21 Yvonne Baumann, RN [address] [facility] [place] [address] Specialty Network Cabler Hematology/Oncology 09/23/23 Mitch Neri MD [address] [place] [address] [place] [address] Physician Hematology/Oncology 09/23/23 Cathy Templeton, PA-C [address] [place] [address] [place] [address] Physician Safety Sealer Hematology/Oncology 09/23/23 Deepika Garcia LSW Rehabilitation Services Counselor 09/24/[address] [place] [address] [place] [address] Registered Dietitian Nutrition 10/22/23 Rocket 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 Start Date End Date Sunny Jenkins MD [address] [place], [place] [id number] PCP - General Internal Medicine 08/22/23 Janet Dillard DO [address] [facility] [address] Referring Family Medicine 07/14/21 Yvonne Baumann, MALORIE [address] [facility] [place] [address] Specialty Network Cabler Hematology/Oncology 09/23/23 Mitch Neri MD [address] [place] [address] [place] [address] Physician Hematology/Oncology 09/23/23 Cathy Templeton PA-C [address] [facility] [place] [address] Physician Safety Sealer Hematology/Oncology 09/23/23 Deepika Garcia, PUBLICITY PERSON Rehabilitation Services Counselor 09/24/[address] [facility] [place] [address] Registered Dietitian Nutrition 10/22/23 Rocket 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 Start Date End Date Sunny Jenkins MD [address], [place] [facility] [facility] [place] [place] [id number] PCP - General Internal Medicine 08/22/23 Janet Dillard DO [address] [place] [address] Referring Family Medicine 07/14/21 Yvonne Baumann, RN [address] [facility] [address] [place], [place] 5758[address] Specialty Network Cabler Hematology/Oncology 09/23/23 Mitch Neri MD 417 [facility] [place] [address] Physician Hematology/Oncology 09/23/23 Cathy Templeton PA-C [address] [place] [address] [place] [address] Physician Safety Sealer Hematology/Oncology 09/23/23 Deepika Garcia, PUBLICITY PERSON Rehabilitation Services Counselor 09/24/[address] [facility] [place] [address] Registered Dietitian Nutrition 10/22/23 Rocket 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 Start Date End Date Sunny Jenkins MD [address] [place] [address] PCP - General Internal Medicine 08/22/23 Janet Dillard DO [address] [place] [address] Referring Family Medicine 07/14/21 Yvonne Baumann RN [address] [facility] [place] [address] Specialty Network Cabler Hematology/Oncology 09/23/23 Mitch Neri MD [address] [place], [place] [address]ry [facility] [place] [address] Physician Hematology/Oncology 09/23/23 Cathy Templeton, PA-C [address] [place] [address] [place] [address] Physician Safety Sealer Hematology/Oncology 09/23/23 Deepika Garcia LSW Rehabilitation Services Counselor 09/24/[address] [place] [address] [place] [address] Registered Dietitian Nutrition 10/22/23 Rocket 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 Start Date End Date Sunny Jenkins MD [address] [place] [address] PCP - General Internal Medicine 08/22/23 Janet Dillard DO [address] [facility] [place], [place] [address] Referring Family Medicine 07/14/21 Yvonne Baumann RN [address] [facility] [place] [address] Specialty Network Cabler Hematology/Oncology 09/23/23 Mitch Neri MD 417 [facility] [place] [address] Physician Hematology/Oncology 09/23/23 Cathy Templeton PA-C [address] [facility] [place] [address] Physician Safety Sealer Hematology/Oncology 09/23/23 Deepika Garcia, PUBLICITY PERSON Rehabilitation Services Counselor 09/24/[address] [place] [address] [place] [address] Registered Dietitian Nutrition 10/22/23 Rocket 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 Start Date End Date Sunny Jenkins MD [address], [place], [place] [id number] PCP - General Internal Medicine 08/22/23 Janet Dillard DO [address] [place] [address] Referring Family Medicine 07/14/21 Yvonne Baumann, RN [address] [facility] [address] [place], [place] [id number] Specialty Network Cabler Hematology/Oncology 09/23/23 Mitch Neri MD [address] [place] [address] [place] [address] Physician Hematology/Oncology 09/23/23 Cathy Templeton PA-C [address] [place] [address] [place] [address] Physician Safety Sealer Hematology/Oncology 09/23/23 Deepika Garcia, PUBLICITY PERSON Rehabilitation Services Counselor 09/24/[address] [place] [address] [place] [address] Registered Dietitian Nutrition 10/22/23 Rocket 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 Start Date End Date Sunny Jenkins MD [address] [place] [address] PCP - General Internal Medicine 08/22/23 Janet Dillard DO [address] [facility] [place] [address] Referring Family Medicine 07/14/21 Yvonne Baumann, RN [address] [facility] [place] [address] Specialty Network Cabler Hematology/Oncology 09/23/23 Mitch Neri MD [address] [place] [address] [place] [address] Physician Hematology/Oncology 09/23/23 Cathy Templeton PA-C [address] [facility] [place] [address] Physician Safety Sealer Hematology/Oncology 09/23/23 Deepika Garcia LSW Rehabilitation Services Counselor 09/24/[address] [place] [address] [place] [address] Registered Dietitian Nutrition 10/22/23 Rocket 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 Start Date End Date Sunny Jenkins MD [address] [place] [address] PCP - General Internal Medicine 08/22/23 Janet Dillard DO [address] [place] [address] Referring Family Medicine 07/14/21 Yvonne Baumann RN [address] [facility] [place] [address] Specialty Network Cabler Hematology/Oncology 09/23/23 Mitch Neri MD [address] [facility] [place] [address] Physician Hematology/Oncology 09/23/23 Cathy Templeton PA-C [address] [place] [address] [place] [address] Physician Safety Sealer Hematology/Oncology 09/23/23 Deepika Garcia LSW Rehabilitation Services Counselor 09/24/[address] [place] [address] [place] [address] Registered Dietitian Nutrition 10/22/23 Rocket 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 Start Date End Date Sunny Jenkins MD [address] [place], [place] [id number] PCP - General Internal Medicine 08/22/23 Janet Dillard DO [address] [place], [place] [id number] Referring Family Medicine 07/14/21 Yvonne Baumann RN [address] [facility] [place] [address] Specialty Network Cabler Hematology/Oncology 09/23/23 Mitch Neri MD [address] [facility] [place] [address] Physician Hematology/Oncology 09/23/23 Cathy Templeton PA-C [address] [place] [address] [place] [address] Physician Safety Sealer Hematology/Oncology 09/23/23 Deepika Garcia, PUBLICITY PERSON Rehabilitation Services Counselor 09/24/[address] [facility] [place] [address] Registered Dietitian Nutrition 10/22/23 Rocket 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 Start Date End Date Sunny Jenkins MD [address] [place] [place], [place] [id number] PCP - General Internal Medicine 08/22/23 Janet Dillard DO [address] [place], [place] [address] Referring Family Medicine 07/14/21 Yvonne Baumann RN [address] [facility] [place] [address] Specialty Network Cabler Hematology/Oncology 09/23/23 04/21/24 Mitch Neri MD [address] [facility] [place] [address] Physician Hematology/Oncology 09/23/23 Cathy Temlpeton, PA-C [address] [facility] [place] [address] Physician Safety Sealer Hematology/Oncology 09/23/23 Deepika Garcia LSW Rehabilitation Services Counselor 09/24/[address] [facility] [place] [address] Registered Dietitian Nutrition 10/22/23 Nia Snider, MALORIE Specialty Network Cabler Hematology/Oncology 04/22/24 Rocket 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 Start Date End Date Sunny Jenkins MD [address] [place] [place], [place] 647[address] PCP - General Internal Medicine 08/22/23 Janet Dillard DO [address] [facility] [place], [place] [address] Referring Family Medicine 07/14/21 Mitch Neri MD [address] [facility] [place] [address] Physician Hematology/Oncology 09/23/23 Deepika Garcia, PUBLICITY PERSON Rehabilitation Services Counselor 09/24/[address] [facility] [place] [address] Registered Dietitian Nutrition 10/22/23 Nia Snider, [place]IE Specialty Network Cabler Hematology/Oncology 04/22/24 Rocket 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 Start Date End Date Sunny Jenkins MD [address] [facility] [place] [address] PCP - General Internal Medicine 08/22/23 Janet Dillard DO [address] [facility] [address] Referring Family Medicine 07/14/21 Yvonne Baumann RN [address] [facility] [place] [address] Specialty Network Cabler Hematology/Oncology 09/23/23 04/21/24 Mitch Neri MD [address] [employer] [facility] [place] [address] Physician Hematology/Oncology 09/23/23 Cathy Templeton, PALeonelC [address] [facility] [place] [address] Physician Safety Sealer Hematology/Oncology 09/23/23 Deepika Garcia, [facility] Rehabilitation Services Counselor 09/24/[address] [facility] [place] [address] Registered Dietitian Nutrition 10/22/23 Rocket 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 Start Date End Date Sunny Jenkins MD [address] [place] [address] PCP - General Internal Medicine 08/22/23 Janet Dillard DO [address] [place] [phone] Referring Family Medicine 07/14/21 Mitch Neri MD [address] [facility] [place] [address] Physician Hematology/Oncology 09/23/23 Deepika Garcia [facility] Rehabilitation Services Counselor 09/24/[address] [facility] [place] [address] Registered Dietitian Nutrition 10/22/23 Nia Snider, MAL[place]IE Specialty Network Cabler Hematology/Oncology 04/22/24 Rocket 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 Start Date End Date Sunny Jenkins MD [address] [place] [address] PCP - General Internal Medicine 08/22/23 Janet Dillard DO [address] [place] [id number] Referring Family Medicine 07/14/21 Mitch Neri MD [address] [facility] [place] [address] Physician Hematology/Oncology 09/23/23 Deepika Garcia, PUBLICITY PERSON Rehabilitation Services Counselor 09/24/[address] [facility] [place] [address] Registered Dietitian Nutrition 10/22/23 Nia Snider, RN Specialty Network Cabler Hematology/Oncology 04/22/24 Rocket 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 Start Date End Date Sunny Jenkins MD [address] [facility] [place] [address] PCP - General Internal Medicine 08/22/23 Janet Dillard DO [address] [place] [address] Referring Family Medicine 07/14/21 Mitch Neri MD [address] [place] [address] [place] [address] Physician Hematology/Oncology 09/23/23 Deepika Garcia, PUBLICITY PERSON Rehabilitation Services Counselor 09/24/[address] [place] [address] [place] [address] Registered Dietitian Nutrition 10/22/23 Nia Snider, RN Specialty Network Cabler Hematology/Oncology 04/22/24 Rocket 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 Start Date End Date Sunny Jenkins MD [address] [place] [address] PCP - General Internal Medicine 08/22/23 Janet Dillard DO [address] [place], [place] 1284720 Referring Family Medicine 07/14/21 Mitch Neri MD [address] [facility] [place] [address] Physician Hematology/Oncology 09/23/23 Deepika Garcia, PUBLICITY PERSON Rehabilitation Services Counselor 09/24/[address] [facility] [place] [address] Registered Dietitian Nutrition 10/22/23 Nia Snider, RN Specialty Network Cabler Hematology/Oncology 04/22/24 Rocket 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 Start Date End Date Sunny Jenkins MD [address] [place] [address] PCP - General Internal Medicine 08/22/23 Janet Dillard DO [address] [place] [address] Referring Family Medicine 07/14/21 Mitch Neri MD [address] [facility] [place] [address] Physician Hematology/Oncology 09/23/23 Deepika Garcia, PUBLICITY PERSON Rehabilitation Services Counselor 09/24/[address] [facility] [place] [address] Registered Dietitian Nutrition 10/22/23 Nia Snider, MALORIE Specialty Network Cabler Hematology/Oncology 04/22/24 Rocket 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 Start Date End Date Sunny Jenkins MD [address] [place] [address] PCP - General Internal Medicine 08/22/23 Janet Dillard DO [address] [place] [address] Referring Family Medicine 07/14/21 Mitch Neri MD [address] [facility] [place] [address] Physician Hematology/Oncology 09/23/23 Deepika Garcia, PUBLICITY PERSON Rehabilitation Services Counselor 09/24/[address] [facility] [place] [address] Registered Dietitian Nutrition 10/22/23 Nia Snider, RN Specialty Network Cabler Hematology/Oncology 04/22/24 Rocket 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 Start Date End Date Rita Amanda PCP - General 01/28/07 08/21/23 Janet Dillard DO [address] [place], [place] [phone] Referring Family Medicine 07/14/21 Rocket 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 Start Date End Date Sunny Jenkins MD [address] [place] [address] PCP - General Internal Medicine 08/22/23 Janet Dillard DO [address] [place], [place] 5807420 Referring Family Medicine 07/14/21 Mitch Neri MD [address] [facility] [place] [address] Physician Hematology/Oncology 09/23/23 Deepika Garcia, PUBLICITY PERSON Rehabilitation Services Counselor 09/24/[address] [facility] [place] [address] Registered Dietitian Nutrition 10/22/23 Nia Snider, MAL[place]IE Specialty Network Cabler Hematology/Oncology 04/22/24 Rocket 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 Start Date End Date Sunny Jenkins MD [address] [facility] [place] [address] PCP - General Internal Medicine 08/22/23 Janet Dillard DO [address] [facility] [place] [address] Referring Family Medicine 07/14/21 Mitch Neri MD [address] [facility] [place] [address] Physician Hematology/Oncology 09/23/23 Deepika Garcia, PUBLICITY PERSON Rehabilitation Services Counselor 09/24/[address] [place] [address] [place] [address] Registered Dietitian Nutrition 10/22/23 Nia Snider, MAL[place]IE Specialty Network Cabler Hematology/Oncology 04/22/24 Rocket 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 Start Date End Date Sunny Jenkins MD [address] [facility] [place] [address] PCP - General Internal Medicine 08/22/23 Janet Dillard DO [address] [facility] [place] [address] Referring Family Medicine 07/14/21 Mitch Neri MD [address] [place] [address] [place] [address] Physician Hematology/Oncology 09/23/23 Deepika Garcia, PUBLICITY PERSON Rehabilitation Services Counselor 09/24/[address] [place] [address] [place] [address] Registered Dietitian Nutrition 10/22/23 Nia Snider, [place] Specialty Network Cabler Hematology/Oncology 04/22/24 Rocket 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 Start Date End Date Sunny Jenkins MD [address] [place] [address] PCP - General Internal Medicine 08/22/23 Janet Dillard DO [address] [facility] [place] [address] Referring Family Medicine 07/14/21 Mitch Neri MD [address] [place] [address] [place] [address] Physician Hematology/Oncology 09/23/23 Deepika Garcia LSW Rehabilitation Services Counselor 09/24/[address] [place] [address] [place] [address] Registered Dietitian Nutrition 10/22/23 Nia Snider, RN Specialty Network Cabler Hematology/Oncology 04/22/24 Rocket 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 Start Date End Date Sunny Jenkins MD [address] [facility] [place] [address] PCP - General Internal Medicine 08/22/23 Janet Dillard DO [address] [facility] [place] [address] Referring Family Medicine 07/14/21 Mitch Neri MD [address] [place] [address] [place] [address] Physician Hematology/Oncology 09/23/23 Deepika Garcia LSW Rehabilitation Services Counselor 09/24/[address] [facility] [place] [address] Registered Dietitian Nutrition 10/22/23 Nia Snider, RN Specialty Network Cabler Hematology/Oncology 04/22/24 Rocket 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 Start Date End Date Sunny Jenkins MD [address] [place] [address] PCP - General Internal Medicine 08/22/23 Janet Dillard DO [address] [place] [phone] Referring Family Medicine 07/14/21 Mitch Neri MD [address] [facility] [place] [address] Physician Hematology/Oncology 09/23/23 Deepika Garcia LSW Rehabilitation Services Counselor 09/24/[address] [place] [address] [place] [address] Registered Dietitian Nutrition 10/22/23 Nia Snider, RN Specialty Network Cabler Hematology/Oncology 04/22/24 Rocket 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 Start Date End Date Sunny Jenkins MD [address] [place] [address] PCP - General Internal Medicine 08/22/23 Janet Dillard DO [address] [place], [place] 1737[address] Referring Family Medicine 07/14/21 Mitch Neri MD [address] [facility] [place] [address] Physician Hematology/Oncology 09/23/23 Deepika Garcia, PUBLICITY PERSON Rehabilitation Services Counselor 09/24/[address] [place] [address] [place] [address] Registered Dietitian Nutrition 10/22/23 Nia Snider, RN Specialty Network Cabler Hematology/Oncology 04/22/24 Rocket 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 Start Date End Date Sunny Jenkins MD [address] [facility] [address] PCP - General Internal Medicine 04/02/23 Rocket 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 Start Date End Date Sunny Jenkins MD [address] [facility] [place] [address] PCP - General Internal Medicine 08/22/23 Janet Dillard DO 1479 [facility], [place] [phone] Referring Family Medicine 07/14/21 Mitch Neri MD [address] [place] [address] [place] [address] Physician Hematology/Oncology 09/23/23 Deepika Garcia, PUBLICITY PERSON Rehabilitation Services Counselor 09/24/[address] [place] [address] [place] [address] Registered Dietitian Nutrition 10/22/23 Nia Snider, RN Specialty Network Cabler Hematology/Oncology 04/22/24 Rocket 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 Start Date End Date Sunny Jenkins MD [address] [facility] [place], [place] 43587[address] PCP - General Internal Medicine 08/22/23 Janet Dillard DO [address] [facility] [place] [address] Referring Family Medicine 07/14/21 Mitch Neri MD [address] [place] [address] [place] [address] Physician Hematology/Oncology 09/23/23 Deepika Garcia, PUBLICITY PERSON Rehabilitation Services Counselor 09/24/[address] [facility] [place] [address] Registered Dietitian Nutrition 10/22/23 Nia Snider, [place]IE Specialty Network Cabler Hematology/Oncology 04/22/24 Rocket 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 Start Date End Date Sunny Jenkins MD [address] [facility] [place] [address] PCP - General Internal Medicine 08/22/23 GilmaPuneetee FlaquitaDO [address] [facility] [place] [address] Referring Family Medicine 07/14/21 Mitch Neri MD [address] [facility] [place] [address] Physician Hematology/Oncology 09/23/23 Deepika Garcia, PUBLICITY PERSON Rehabilitation Services Counselor 09/24/[address] [facility] [place] [address] Registered Dietitian Nutrition 10/22/23 Nia Snider, [place] Specialty Network Cabler Hematology/Oncology 04/22/24 Rocket 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 Start Date End Date Sunny Jenkins MD [address] [place] [address] PCP - General Internal Medicine 08/22/23 Janet Dillard DO [address] [place] [address] Referring Family Medicine 07/14/21 Mitch Neri MD [address] [facility] [place] [address] Physician Hematology/Oncology 09/23/23 Deepika Garcia, PUBLICITY PERSON Rehabilitation Services Counselor 09/24/[address] [facility] [place] [address] Registered Dietitian Nutrition 10/22/23 Nia Snider, [place] Specialty Network Cabler Hematology/Oncology 04/22/24 Rocket 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 Start Date End Date Sunny Jenkins MD [address] [facility] [place] [address] PCP - General Internal Medicine 08/22/23 Janet Dillard DO [address] [place] [address] Referring Family Medicine 07/14/21 Mitch Neri MD [address] [facility] [place] [address] Physician Hematology/Oncology 09/23/23 Deepika Garcia, PUBLICITY PERSON Rehabilitation Services Counselor 09/24/[address] [facility] [place] [address] Registered Dietitian Nutrition 10/22/23 Nia Snider, [place] Specialty Network Cabler Hematology/Oncology 04/22/24 Rocket 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 Start Date End Date Sunny Jenkins MD [address] [facility] [place] [address] PCP - General Internal Medicine 08/22/23 Janet Dillard DO [address] [facility] [place] [address] Referring Family Medicine 07/14/21 Mitch Neri MD [address] [place] [address] [place] [address] Physician Hematology/Oncology 09/23/23 Deepika Garcia, PUBLICITY PERSON Rehabilitation Services Counselor 09/24/[address] [place] [address] [place] [address] Registered Dietitian Nutrition 10/22/23 Nia Snider RN Specialty Network Cabler Hematology/Oncology 04/22/24 Rocket 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 Start Date End Date Sunny Jenkins MD [address] [facility] [place] [address] PCP - General Internal Medicine 08/22/23 Janet Dillard DO [address] [facility] [place] [address] Referring Family Medicine 07/14/21 Mitch Neri MD [address] [place] [address] [place] [address] Physician Hematology/Oncology 09/23/23 Deepika Garcia LSW Rehabilitation Services Counselor 09/24/[address] [place] [address] [place] [address] Registered Dietitian Nutrition 10/22/23 Nia Snider RN Specialty Network Cabler Hematology/Oncology 04/22/24 Rocket 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 Start Date End Date Sunny Jenkins MD [address] [place] [address] PCP - General Internal Medicine 08/22/23 Janet Dillard DO [address] [place] [address] Referring Family Medicine 07/14/21 Mitch Neri MD [address] [facility] [place] [address] Physician Hematology/Oncology 09/23/23 Deepika Garcia, PUBLICITY PERSON Rehabilitation Services Counselor 09/24/[address] [facility] [place] [address] Registered Dietitian Nutrition 10/22/23 Nia Snider, RN Specialty Network Cabler Hematology/Oncology 04/22/24 Rocket 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 Start Date End Date Sunny Jenkins MD [address] [facility] [place] [address] PCP - General Internal Medicine 08/22/23 Janet Dillard, [address] [place] [address] Referring Family Medicine 07/14/21 Mitch Neri MD [address] [facility] [place] [address] Physician Hematology/Oncology 09/23/23 Deepika Garcia, PUBLICITY PERSON Rehabilitation Services Counselor 09/24/[address] [facility] [place] [address] Registered Dietitian Nutrition 10/22/23 Nia Snider, [place] Specialty Network Cabler Hematology/Oncology 04/22/24 Rocket 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 Start Date End Date Sunny Jenkins MD [address] [place] [address] PCP - General Internal Medicine 04/02/23 Team Status: Active Member Role Status Dates Sunny Jenkins MD Primary Care Provider Active S tart: July 26, 2024 Nikko Corona DO Attending Provider Active Sta rt: July 26, 2024 Team Status: Active Member Role Status Dates Sunny Jenkins MD Primary Care Provide r, Attending Provider Active Start: September 29, 2024 Rocket 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 Start Date End Date Sunny Jenkins MD [address] [facility] [place], [place] [address] PCP - General Internal Medicine 08/22/23 Janet Dillard DO [address] [place], [place] [id number] Referring Family Medicine 07/14/21 Mitch Neri MD [address] [place] [address] [place] [address] Physician Hematology/Oncology 09/23/23 Deepika Garcia LSW Rehabilitation Services Counselor 09/24/[address] [place] [address] [place] [address] Registered Dietitian Nutrition 10/22/23 Nia Snider, [place] Specialty Network Cabler Hematology/Oncology 04/22/24 Rocket 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 Start Date End Date Sunny Jenkins MD [address], [place] [address] PCP - General Internal Medicine 04/02/23 Rocket 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 Start Date End Date Sunny Jenkins MD [address], [place] [address] PCP - General Internal Medicine 04/02/23 Rocket 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 Start Date End Date Sunny Jenkins MD [address], [place] [address] PCP - General Internal Medicine 04/02/23 Rocket 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 Start Date End Date Sunny Jenkins MD [address], [place] [address] PCP - General Internal Medicine 04/02/23 Rocket 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 Start Date End Date Sunny Jenkins MD [address], [place] [address] PCP - General Internal Medicine 04/02/23 Rocket 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 Start Date End Date Sunny Jenkins MD [address], [place] [address] PCP - General Internal Medicine 04/02/23 Rocket 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 Start Date End Date Sunny Jenkins MD [address], [place] [address] PCP - General Internal Medicine 04/02/23 Rocket 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 Start Date End Date Sunny Jenkins MD [address], [place] [address] PCP - General Internal Medicine 04/02/23 Rocket 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 Start Date End Date Sunny Jenkins MD [address], [place] [address] PCP - General Internal Medicine 04/02/23 Rocket 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 Start Date End Date Sunny Jenkins MD [address], [place] [address] PCP - General Internal Medicine 04/02/23 Rocket 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 Start Date End Date Sunny Jenkins MD [address], [place] [address] PCP - General Internal Medicine 04/02/23 Rocket 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 Start Date End Date Sunny Jenkins MD [address], [place] [address] PCP - General Internal Medicine 04/02/23 Rocket 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 Start Date End Date Sunny Jenkins MD [address], [place] [address] PCP - General Internal Medicine 04/02/23 Rocket 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 Start Date End Date Sunny Jenkins MD [address], [place] [address] PCP - General Internal Medicine 04/02/23 Rocket 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 Start Date End Date Sunny Jenkins MD [address], [place] [address] PCP - General Internal Medicine 04/02/23 Rocket 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 Start Date End Date Sunny Jenkins MD [address] [place] [address] PCP - General Internal Medicine 04/02/23 Rocket 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 Start Date End Date Sunny Jenkins MD [address] [place] [address] PCP - General Internal Medicine 04/02/23 Rocket 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 Start Date End Date Sunny Jenkins MD [address] [facility] [place] [address] PCP - General Internal Medicine 04/02/23 Rocket 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 Start Date End Date Sunny Jenkins MD [address] [facility] [place] [address] PCP - General Internal Medicine 08/22/23 Janet Dillard DO [address] [facility], [place] [id number] Referring Family Medicine 07/14/21 Mitch Neri MD [address] [place] [address] [place] [address] Physician Hematology/Oncology 09/23/23 Deepika Garcia LSW Rehabilitation Services Counselor 09/24/[address] [place] [address] [place] [address] Registered Dietitian Nutrition 10/22/23 iNa Snider, [facility] Hematology/Oncology 04/22/24 Rocket 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 Start Date End Date Sunny Jenkins MD [address] [place], [place] [id number] PCP - General Internal Medicine 08/22/23 Janet Dillard DO [address] [facility] [place] [address] Referring Family Medicine 07/14/21 Mitch Neri MD [address] [place] [address] [place] [address] Physician Hematology/Oncology 09/23/23 Deepika Garcia, PUBLICITY PERSON Rehabilitation Services Counselor 09/24/[address] [place] [address] [place] [address] Registered Dietitian Nutrition 10/22/23 Nia Snider RN [facility] Hematology/Oncology 04/22/24 Rocket 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 Start Date End Date Sunny Jenkins MD [address] [facility] [place] [address] PCP - General Internal Medicine 08/22/23 Janet Dillard DO [address] [facility] [place] [address] Referring Family Medicine 07/14/21 Mitch Neri MD [address] [place] [address] [place] [address] Physician Hematology/Oncology 09/23/23 Deepika Garcia, PUBLICITY PERSON Rehabilitation Services Counselor 09/24/[address] [place] [address] [place] [address] Registered Dietitian Nutrition 10/22/23 Nia Snider, [facility] Hematology/Oncology 04/22/24 Rocket 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 Start Date End Date Sunny Jenkins MD [address] [place] [address] PCP - General Internal Medicine 08/22/23 Janet Dillard DO [address] [place] [address] Referring Family Medicine 07/14/21 Mitch Neri MD [address] [facility] [place] [address] Physician Hematology/Oncology 09/23/23 Deepika Garcia LSW Rehabilitation Services Counselor 09/24/[address] [facility] [place] [address] Registered Dietitian Nutrition 10/22/23 Nia Snider, [facility] Hematology/Oncology 04/22/24 Rocket 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 Start Date End Date Sunny Jenkins MD [address] [place] [address] PCP - General Internal Medicine 08/22/23 Janet Dillard DO [address] [place] [address] Referring Family Medicine 07/14/21 Mitch Neri MD [address] [facility] [place] [address] Physician Hematology/Oncology 09/23/23 Deepika Garcia LSW Rehabilitation Services Counselor 09/24/[address] [facility] [place] [address] Registered Dietitian Nutrition 10/22/23 Nia Snider, [facility] Hematology/Oncology 04/22/24 Rocket 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 Start Date End Date Sunny Jenkins MD [address] [facility] [place] [address] PCP - General Internal Medicine 08/22/23 Janet Dillard DO [address] [facility] [place] [address] Referring Family Medicine 07/14/21 Mitch Neri MD [address] [facility] [place] [address] Physician Hematology/Oncology 09/23/23 Deepika Garcia, PUBLICITY PERSON Rehabilitation Services Counselor 09/24/[address] [facility] [place] [address] Registered Dietitian Nutrition 10/22/23 Nia Snider, [facility] Hematology/Oncology 04/22/24 Rocket 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 Start Date End Date Sunny Jenkins MD [address] [facility] [place] [address] PCP - General Internal Medicine 08/22/23 Janet Dillard DO [address] [facility] [place] [address] Referring Family Medicine 07/14/21 Mitch Neri MD [address] [facility] [place] [address] Physician Hematology/Oncology 09/23/23 Deepika Garcia, PUBLICITY PERSON Rehabilitation Services Counselor 09/24/[address] [place] [address] [place] [address] Registered Dietitian Nutrition 10/22/23 Nia Snider, RN [facility] Hematology/Oncology 04/22/24 Rocket 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 Start Date End Date Sunny Jenkins MD PCP - General Internal Medicine 08/22/23 Janet Dillard DO Referring Family Medicine 07/14/21 Mitch Neri MD [address] [place] [address] [place] [address] Physician Hematology/Oncology 09/23/23 Deepika Garcia, PUBLICITY PERSON Rehabilitation Services Counselor 09/24/[address] [place] [address] [place] [address] Registered Dietitian Nutrition 10/22/23 Nia Snidre RN [facility] Hematology/Oncology 04/22/24 Rocket 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 Start Date End Date Sunny Jenkins MD PCP - General Internal Medicine 08/22/23 Janet Dillard DO Referring Family Medicine 07/14/21 Mitch Neri MD [address] [place] [address] [place] [address] Physician Hematology/Oncology 09/23/23 Deepika Garcia LSW Rehabilitation Services Counselor 09/24/[address] [place] [address] [place] [address] Registered Dietitian Nutrition 10/22/23 Nia Snider, RN [facility] Hematology/Oncology 04/22/24 Rocket 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 Start Date End Date Sunny Jenkins MD PCP - General Internal Medicine 08/22/23 Janet Dillard DO Referring Family Medicine 07/14/21 Mitch Neri MD [address] [place] [address] [place] [address] Physician Hematology/Oncology 09/23/23 Deepika Garcia, PUBLICITY PERSON Rehabilitation Services Counselor 09/24/[address] [facility] [place] [address] Registered Dietitian Nutrition 10/22/23 Nia Snider, [facility] Hematology/Oncology 04/22/24 Rocket 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 Start Date End Date Sunny Jenkins MD PCP - General Internal Medicine 08/22/23 Janet Dillard DO Referring Family Medicine 07/14/21 Mitch Neri MD [address] [place] [address] [place] [address] Physician Hematology/Oncology 09/23/23 Deepika Garcia, PUBLICITY PERSON Rehabilitation Services Counselor 09/24/[address] [facility] [place] [address] Registered Dietitian Nutrition 10/22/23 Nia Snider, [facility] Hematology/Oncology 04/22/24 Rocket 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 Start Date End Date Sunny Jenkins MD PCP - General Internal Medicine 08/22/23 Janet Dillard DO Referring Family Medicine 07/14/21 Mitch Neri MD [address] [facility] [place] [address] Physician Hematology/Oncology 09/23/23 Deepika Garcia, PUBLICITY PERSON Rehabilitation Services Counselor 09/24/[address] [facility] [place] [address] Registered Dietitian Nutrition 10/22/23 Nia Snider, RN [facility] Hematology/Oncology 04/22/24 Rocket 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 Start Date End Date Sunny Jenkins MD PCP - General Internal Medicine 08/22/23 Janet Dillard DO Referring Family Medicine 07/14/21 Mitch Neri MD [address] [place] [address] [place] [address] Physician Hematology/Oncology 09/23/23 Deepika Garcia LSW Rehabilitation Services Counselor 09/24/[address] [facility] [place] [address] Registered Dietitian Nutrition 10/22/23 Nia Snider, [facility] Hematology/Oncology 04/22/24 Rocket 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 Start Date End Date Sunny Jenkins MD PCP - General Internal Medicine 08/22/23 Janet Dillard DO Referring Family Medicine 07/14/21 Mitch Neri MD [address] [facility] [place] [address] Physician Hematology/Oncology 09/23/23 Deepika Garcia, PUBLICITY PERSON Rehabilitation Services Counselor 09/24/[address] [facility] [place] [address] Registered Dietitian Nutrition 10/22/23 Nia Snider, [facility] Hematology/Oncology 04/22/24 Rocket 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 Start Date End Date Sunny Jenkins MD PCP - General Internal Medicine 08/22/23 Janet Dillard DO Referring Family Medicine 07/14/21 Mitch Neri MD [address] [facility] [place] [address] Physician Hematology/Oncology 09/23/23 Deepika Garcia LSW Rehabilitation Services Counselor 09/24/[address] [facility] [place] [address] Registered Dietitian Nutrition 10/22/23 Nia Snider RN [facility] Hematology/Oncology 04/22/24 Rocket 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 Start Date End Date Sunny Jenkins MD PCP - General Internal Medicine 08/22/23 Janet Dillard DO Referring Family Medicine 07/14/21 Mitch Neri MD [address] [facility] [place] [address] Physician Hematology/Oncology 09/23/23 Deepika Garcia LSW Rehabilitation Services Counselor 09/24/[address] [facility] [place] [address] Registered Dietitian Nutrition 10/22/23 Nia Snider, [facility] Hematology/Oncology 04/22/24 Rocket 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 Start Date End Date Sunny Jenkins MD PCP - General Internal Medicine 08/22/23 Janet Dillard DO Referring Family Medicine 07/14/21 Mitch Neri MD [address] [place] [address] Physician Hematology/Oncology 09/23/23 Deepika Garcia, PUBLICITY PERSON Rehabilitation Services Counselor 09/24/[address] [place] [address] [place] [address] Registered Dietitian Nutrition 10/22/23 Nia Snider, [facility] Hematology/Oncology 04/22/24 Rocket 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 Start Date End Date Sunny Jenkins MD PCP - General Internal Medicine 08/22/23 Janet Dillard DO Referring Family Medicine 07/14/21 Mitch Neri MD [address] [facility] [place] [address] Physician Hematology/Oncology 09/23/23 Deepika Garcia, PUBLICITY PERSON Rehabilitation Services Counselor 09/24/[address] [place] [address] [place] [address] Registered Dietitian Nutrition 10/22/23 Nia Snider, [facility] Hematology/Oncology 04/22/24 Rocket 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 Start Date End Date Sunny Jenkins MD PCP - General Internal Medicine 08/22/23 Janet Dillard DO Referring Family Medicine 07/14/21 Mitch Neri MD [address] [facility] [place] [address] Physician Hematology/Oncology 09/23/23 Deepika Garcia, PUBLICITY PERSON Rehabilitation Services Counselor 09/24/[address] [facility] [place] [address] Registered Dietitian Nutrition 10/22/23 Nia Snider, [facility] Hematology/Oncology 04/22/24 Rocket 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 Start Date End Date Sunny Jenkins MD PCP - General Internal Medicine 08/22/23 Janet Dillard DO Referring Family Medicine 07/14/21 Mitch Neri MD [address] [place] [address] Physician Hematology/Oncology 09/23/23 Deepika Garcia, PUBLICITY PERSON Rehabilitation Services Counselor 09/24/[address] [place] [address] Registered Dietitian Nutrition 10/22/23 Nia Snider, RN [facility] Hematology/Oncology 04/22/24 Rocket 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 Start Date End Date Sunny Jenkins MD PCP - General Internal Medicine 08/22/23 Janet Dillard DO Referring Family Medicine 07/14/21 Mitch Neri MD [address] [facility] [place] [address] Physician Hematology/Oncology 09/23/23 Deepika Garcia, PUBLICITY PERSON Rehabilitation Services Counselor 09/24/[address] [facility] [place] [address] Registered Dietitian Nutrition 10/22/23 Nia Snider, RN [facility] Hematology/Oncology 04/22/24 Rocket 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 Start Date End Date Sunny Jenkins MD [address] [facility] [address] PCP - General Internal Medicine 04/02/23 Rocket 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 Start Date End Date Sunny Jenkins MD PCP - General Internal Medicine 08/22/23 Janet Dillard DO Referring Family Medicine 07/14/21 Mitch Neri MD [address] [place] [address] [place] [address] Physician Hematology/Oncology 09/23/23 Deepika Garcia, PUBLICITY PERSON Rehabilitation Services Counselor 09/24/[address] [place] [address] [place] [address] Registered Dietitian Nutrition 10/22/23 Nia Snider, RN [facility] Hematology/Oncology 04/22/24 Rocket 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 Start Date End Date Sunny Jenkins MD PCP - General Internal Medicine 08/22/23 Janet Dillard DO Referring Family Medicine 07/14/21 Mitch Neri MD [address] [place] [address] [place] [address] Physician Hematology/Oncology 09/23/23 Deepika Garcia, PUBLICITY PERSON Rehabilitation Services Counselor 09/24/[address] [facility] [place] [address] Registered Dietitian Nutrition 10/22/23 Nia Snider, RN [facility] Hematology/Oncology 04/22/24 Rocket 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 Start Date End Date Sunny Jenkins MD PCP - General Internal Medicine 08/22/23 Janet Dillard DO Referring Family Medicine 07/14/21 Mitch Neri MD [address] [place] [address] [place] [address] Physician Hematology/Oncology 09/23/23 Deepika Garcia LSW Rehabilitation Services Counselor 09/24/[address] [place] [address] [place] [address] Registered Dietitian Nutrition 10/22/23 Nia Snider, RN [facility] Hematology/Oncology 04/22/24 Rocket 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 Start Date End Date Sunny Jenkins MD PCP - General Internal Medicine 08/22/23 Janet Dillard DO Referring Family Medicine 07/14/21 Mitch Neri MD [address] [place] [address] [place] [address] Physician Hematology/Oncology 09/23/23 Deepika Garcia LSW Rehabilitation Services Counselor 09/24/[address] [facility] [place] [address] Registered Dietitian Nutrition 10/22/23 Nia Snider, RN [facility] Hematology/Oncology 04/22/24 Rocket 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 Start Date End Date Sunny Jenkins MD PCP - General Internal Medicine 08/22/23 Janet Dillard DO Referring Family Medicine 07/14/21 Mitch Neri MD [address] [facility] [place] [address] Physician Hematology/Oncology 09/23/23 Deepika Garcia LSW Rehabilitation Services Counselor 09/24/[address] [facility] [place] [address] Registered Dietitian Nutrition 10/22/23 Nia Snider RN [facility] Network [facility] Hematology/Oncology 04/22/24 Rocket 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 Start Date End Date Sunny Jenkins MD PCP - General Internal Medicine 08/22/23 Janet Dillard DO Referring Family Medicine 07/14/21 Mitch Neri MD [address] [place] [address] Physician Hematology/Oncology 09/23/23 Deepika Garcia LSW Rehabilitation Services Counselor 09/24/[address] [facility] [place] [address] Registered Dietitian Nutrition 10/22/23 Nia Snider, [facility] Hematology/Oncology 04/22/24 Reason for Visit (unrecogniz ed section and content) Reason Comments Event Zio patch Reason Comments Results Reason Comments Pain Reason Comments Established Patient Pain Reason Comments Orders Reason Comments New Pain Specialty Diagnoses / Procedures Referred By Contac t Referred To Contact Orthopedics Diagnoses Primary osteoarthritis of left hip Procedures CONSULT TO ORTHOPAEDICS OFFICE/OUTPATIENT NEW HIGH MDM 60-74 MINUTES Nayan Yan, [facility] [address] [place] [address] Referral ID Status Reason Start Date Expiration Date V isits Requested Visits Authorized [id number] Closed PCP Requested Referral 03/23/2022 03/23/2023 1 [...] XTR STRUX R-T W/[place] [address] [place] [address] [facility] [address] [place] [address] Referral ID Status Reason Start Date Expiration Date V isits Requested Visits Authorized [id number] Closed Auto-Generate d Referral 07/17/2023 08/15/2024 1 1 Reason Comments Consult Reason Comments Network [facility] - Other methotrexate Reason Comments Radiology NM [...] in female (HCC) Mitch Neri MD [address] [place] [address] [address] [facility] [address] [place] [address] Referral ID Status Reason Start Date Expiration Date V isits Requested Visits Authorized [id number] Authorized 09/17/2023 12/16/2023 99 99 Reason Comments [...] Expiration Date V isits Requested Visits Authorized [id number] Authorized 03/03/2024 06/01/2024 99 99 Reason Onset [...] pendi ng Reason Comments Refill Request Reason Comments Appointment Cancelled Reason Comments Oral Anti-cancer Agent Education Kisqali Reason Comments Results, Lab Reason Comments Network [facility] - Other Follow up oral chemo kisquali [...] out. Specialty Diagnoses / Procedures Referred By Contac t Referred To Contact General Surgery Diagnoses Cutaneous abscess of groin Procedures CONSULT TO GENERAL SURGERY OFFICE/OUTPATIENT NEW HIGH MDM 60 MINUTES Mitch Neri MD [address] [place] [address] Phone: tel: fax: Referral ID Status Reason Start Date Expiration Date V isits Requested Visits Authorized [id number] Closed PCP Requested Referral 01/07/2024 01/06/2025 1 [...] PELVIS 2-3 VIEWS Micah Son, DO [address] [place] [address] Phone: tel: fax: [place] [address] Referral ID Status Reason Start Date Expiration Date V isits Requested Visits Authorized [id number] Closed Auto-Generate d Referral 02/15/2025 03/17/2026 1 1 Reason Comments New Patient HH Specialty Diagnoses / Procedures [facility] Referred To Contact General Surgery Diagnoses Hiatal hernia Procedures CONSULT TO GENERAL SURGERY OFFICE/OUTPATIENT [facility] 60 MINUTES Mitch Neri MD [address] [place] [address] Phone: tel: fax: Referral ID Status Reason Start Date Expiration Date V isits Requested Visits Authorized [id number] Closed PCP Requested Referral 12/30/2024 12/30/2025 1 1 Reason Comments Orders Network [facility] - Other Reason Comments Consult Elevated serum creat inine Specialty Diagnoses / Procedures Referred By Contac t Referred To Contact Nephrology Diagnoses Elevated serum creatinine Procedures CONSULT TO NEPHROLOGY OFFICE/OUTPATIENT [facility] 60 MINUTES Mitch Neri MD [address] [place] [address] Phone: tel: fax: Referral ID Status Reason Start Date Expiration Date V isits Requested Visits Authorized [id number] Closed PCP Requested Referral 10/02/2024 10/02/2025 1 [...] DILATOR IF OBSTRUCTED BRNCDILAT RSPSE SPMTRY PRE&POST-BRNCDILAT Boom Hobson MD [address] [place] [address] Phone: tel: fax: [facility] [place] [address] [place] [address] Referral ID Status Reason Start Date Expiration Date V isits Requested Visits Authorized [id number] Closed Auto-Generate d Referral 04/14/2025 05/14/2026 1 [...] On Sat10/22/23 at 1030, CAUTION: vesicant -- EXP:91910/23/23 Administer total dose over 15 minutes. Hazardous [...] 25 mg, INTRAVENOUS, ONCE, 1 dose, On e 12/03/23 at 1200, Give prior to chemotherapy. Given [...] BE BASED ON THE PRIMARY CLINICAL RECORDS. [employer] provides no warranty or guarantee of the accuracy or completeness of information in this document.
[2025-05-04] MEDS: KETOROLAC TROMETHAMINE 60 MG/2 ML VIAL IM (10:33)
== END 2025-05-04 11:35 | disposition home or self-care (01) ==
PROVIDERS: Emergency Provider Emergency Medicine; PCP Student in an Organized Health Care Education/Training Program
DX: M25.561 Pain in right knee (principal); Z96.653 Presence of artificial knee joint, bilateral; Z90.10 Acquired absence of unspecified breast and nipple; C50.919 Malignant neoplasm of unspecified site of unspecified female breast
CPT/HCPCS: 73562; 96372; 99284; J1885

== ENCOUNTER 2025-05-27 08:32 | Emergency (ER) | payer MEDICARE, OTHER, SELFPAY ==
--- OUTSIDE RECORDS SUMMARY | 2025-05-10 04:50 | XMS_ITS ---
Author Organization [facility] Address [address] [place] [address] Care Team Providers Care Supervisor [employer] Name Role Phone Sunny Jenkins Primary Care Provider Davin Figueroa Unavailable [phone] Tamika Manriquez Unavailable [phone] REASON FOR VISIT LEFT HIP, Left hip pain Social History Tobacco Use: Social History Observation Description Date Details (start date - stop date) Never Smoker NA - NA Smoking History Question Answer Notes Smoking Status NonSmoker AUDIT-C (Standard) Question Answer Notes Did you have a drink contain ing alcohol in the past year? Yes How often did you have six o r more drinks on one occasion in the past year? Never (0 point) How many drinks did you have on a typical day when you were drinking in the past year? Declined to specify (0 point) How often did you have a dri nk containing alcohol in the past year? Declined to specify (0 point) Problems Problem Type SNOMED Code ICD Code Onset Dates Problem Status W/U Status Risk Notes Problem Localized, primary osteoarthritis of the pelvic region and thigh (144529830) Osteoarthritis of one hip, left (M16.12) Active confirmed Encounters Encounter Location Date Provider Diagnosis [facility] [address] [place] [address] [address] [facility] [place] [address] 05/10/2025 Tamika Mitra Left hip pain M25.55 2 and Osteoarthritis of one hip, left M16.12 Assessments Encounter Date Diagnosis (ICD Code) Assessment Notes Treatment Notes Treatment Clinical Notes Section Notes 05/10/2025 Left hip pain (ICD-10 - M25.552) Left hip pain Left hip OA 05/10/2025 Osteoarthritis of one hip, left (ICD-10 - M16.12) Left hip pain Left hip OA 05/10/2025 Other Discussed treatment options with patient. At this time patient does have advanced osteoarthritis to her left hip. Did discuss with patient that she is not currently a surgical candidate as she did get left hip intra-articular corticosteroid injection 2 months ago. Need least 3 months between time of injection and surgery. Patient was given a handout to get home exercises for stretching and strengthening. May continue activity modification, rest, ice and elevation, and use of anti-inflammatorie s as needed for pain control. Patient to continue using walker as needed to assist with ambulation. Continue activity as tolerated otherwise. Patient was in agreement with treatment plan. All questions and concerns were addressed at the time of the appointment. Will plan to have patient back in 3 months for repeat clinical evaluation. Radiographs required. Patient encouraged to the office with any questions or concerns. Left hip pain Left hip OA Plan Of Treatment Treatment Notes Assessment Notes Other Discussed treatment options with patient. At this time patient does have advanced osteoarthritis to her left hip. Did discuss with patient that she is not currently a surgical candidate as she did get left hip intra-articular corticosteroid injection 2 months ago. Need least 3 months between time of injection and surgery. Patient was given a handout to get home exercises for stretching and strengthening. May continue activity modification, rest, ice and elevation, and use of anti-inflammatories as needed for pain control. Patient to continue using walker as needed to assist with ambulation. Continue activity as tolerated otherwise. Patient was in agreement with treatment plan. All questions and concerns were addressed at the time of the appointment. Will plan to have patient back in 3 months for repeat clinical evaluation. Radiographs required. Patient encouraged to the office with any questions or concerns. Pending Test Test Name Order Date PELVIS - AP ONLY [id number] 05/10/2025 Next Appt Details Follow Up: h&p, Reason: Provider Name:Jesus Mustafa, 07/01/2025 07:30:00 AM, [address], [place], [address], Progress Notes * MINAL CAPUTODOB:[birth year] (69 yo F)Acc No.[id number]:05/10/2025 Patient: MINAL METZGER Provider: Alexys Manriquez PA-C :1955 A ge:69 Y S ex:Female Date:05/10/2025 Address:[address] [place], [place] [id number] Pcp:Sunny Jenkins Subjective: * Chief Complaints: * 1 . LEFT HIP. 2. Left hip pain. * HPI: G eneral Info per Patient Report: Have you seen another doctor in this practice? N o. S rojas affected is L eft. J oint or body part affected is H ip. S tart of Pain/Cause of Injury C hronic (lasting or reoccurring for more than 3-6 months). P ain occurred S tanding, walking, laying down. W ork related: Lilia EDEN N o. T hird alliance party responsibility: N o. U niversal Questions H eight (ft): 5 ft, H eight (inches): 2 inches, W eight (lbs) 2 65. O steoporosis Screening D exa Scan ever Completed Y es. Patient is a 69-year-old female presents the office for evaluation of left hip pain. Patient says she has had ongoing left hip pain that has been severe for the last 2 years. Hip pain has kept her pretty and active and she has required walker use to assist with ambulation for the last year secondary to hip pain. Has noted significant worsening of pain in the left hip over the last 6 months. She states pain is most severe to the groin but does radiate into the lateral hip and buttocks. She is unable to lay down flat secondary to pain. She has sharp, stabbing pain with any kind of weightbearing, walking, or activity. 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 She is currently in remission. Still has port in place. She does note pain to the left hip that wakes her at night. Has chronic grinding and crepitus through the hip and has had multiple episodes of popping over the last month or 2. No previous hip surgeries but did have bilateral total knees completed at [facility] [place] 6 or 7 years ago. Has some history of chronic low back pain which is not bothering her at this time. She will take Tylenol rarely. Notes minimal to no relief from Tylenol. She does live alone. Has been doing some chair yoga. Has had left hip intra-articular corticosteroid injections in the past without relief. Last 1 was completed at [facility] 2 months ago. Not doing any physical therapy. Patient has a history of some decreased kidney function. No history of diabetes. She did have a pulmonary embolism when undergoing chemotherapy and was treated with Eliquis for 3 months. Not currently on a blood thinner. Does have a history of anemia. Last hemoglobin level was 12.8. * ROS: C onstitutional: Fever N o. W eight loss N o. F atigue N o.?Headache N o. L oss of Appetite N o. A ppetite Change Y es. D ifficulty Sleeping N o. U nexplained Weight Loss N o. M arked Fatigue N o. ? E ar/Nose/Throat: Difficulty Swallowing N o. L oss of Hearing N o.?Hoarseness N o. E ar pain N o. N ose bleed N o. E yes: Glasses/ Contacts N o. C hange in Vision N o. ? T eeth: Gum Trouble N o. G astrointestinal: Bloody Stool N o. N ausea/Vomiting N o. R eflux?Yes. S tomach Pain/Ulcers N o. F requent Diarrhea N o. F requent Constipation N o. H emorrhoids N o. U ncontrolled Loss of Stool N o. H eartburn/Acid Stomach N o. S kin: Frequent Rashes N o. F requent Itchiness N o. E asy Bruising N o. S wollen Ankles Y es. M usculoskeletal: Joint Swelling Y es. J oint pain Y es. J oint stiffness N o. B ack Pain Y es. J oint Weakness Y es. M uscle Cramps N o.?Muscle Weakness N o. N anderson Pain N o. C old Hands/Feet N o. ? H ematologic: Admits A nemia, N o. B ruising N o. B leeding problem N o. R espiratory: Shortness of Breath Y es. M orning Cough N o. P roductive Cough/Sputum Y es. C ardiovascular: Heart or Chest Pain N o. A bnormal Heart Beat N o.?Leg Swelling Y es. P oor Heart Function N o. S welling of Feet Y es. ? G enitourinary: Burning on Urination N o. I ncontinence Y es. P elvic Pain N o. D ifficulty Starting to Urinate N o. U rinate at Night More Than Once N o. U nable to Completely Empty Bladder N o. N eurological: Numbness/ Tingling N o. S eizures/ Epilepsy N o.?Weakness/ Paralysis of Feet/Hands N o. M huong loss N o. B alance Problems Y es. C oordination Problems N o. T remors N o. D izziness N o. F ainting No. B lackouts/Fainting N o. H eadaches/Migraines N o. P sychiatric: Depression N o. A nxiety N o. N ervous Exhaustion N o. P aranoia N o. O bsessive/Compulsive Behavior N o. * Medical History: B lood Clots in Legs/Lungs: Yes, Cancer: Yes, Cancer Type: Breast, Chronic back pain:: Yes, CPAP Machine:: No, DRUG ALLERGIES: Yes, Healthcare worker: No, High Blood Pressure: Yes, Kidney stones: Yes, Latex Allergy: Yes, Osteoarthritis: Yes, Pulmonary embolism: Yes, Respiratory problems:: Yes, Rheumatoid arthritis: Yes, Have you been in close contact with someone who has had MRSA within the last year?: No, Have you ever had or presently have MRSA?: No, Have you been seen by a dentist in the last year?: Yes, Do you have any dental problems i.e. Broken, loose, or chipped teeth, absess, gum disease?: No. * Family History: M other: Arthritis. S iblings: Cancer,Stroke,Scoliosis. F ather: Arthritis,Cancer,Heart Disease,Hypertension. * Social History: S moking History S moking Status N onSmoker. E xercise regularly D o you exercise? N o. D o you live W ith whom do you live? a lone. W hat is your place of residence? W here do you live? P rivate home. W orking status W hat is your working status? r etired. A LEVY-C (Standard) D id you have a drink containing alcohol in the past year? Y es, H ow often did you have six or more drinks on one occasion in the past year? Never (0 point), H ow many drinks did you have on a typical day when you were drinking in the past year? D eclined to specify (0 point), H ow often did you have a drink containing alcohol in the past year? D eclined to specify (0 point). Objective: * Vitals: * Examination: G eneral examination: G eneral examination: Patient is a pleasant well-appearing 69-year-old female sitting comfortably in a chair. She is awake, alert and oriented x 3, and in no acute distress. Answering questions appropriately. Normal mood and affect. X -ray Imaging Studies: 2 view left hip x-rays completed on 04/19/[address] [facility] were reviewed. Images were read and interpreted by Dr. Pat Roberts. Images showed no acute fracture or dislocation. There is increased narrowing at the superior joint hip space with subchondral sclerosis and cystic changes. There is hypertrophy at the periphery of the femoral head and superior acetabulum. Mild sclerosis noted at the SI joint. Osteopenia noted. See dictation by RSS Dictated by Dr. Mustafa AP pelvis obtained and reviewed. Radiograph demonstrates complete loss of left hip joint space with subchondral sclerosis and periarticular osteophytes. Superior lateral wear pattern. Right hip demonstrates moderate to severe degenerative changes. Severe degenerative changes noted of her lumbar spine with prior hardware. There appears to be the beginning of scoliosis as her lumbar spine appears to lean towards the left. L eft Lower Extremity: S kin intact erythema or ecchymosis. Minimal edema. Trace effusion. No tenderness to buttocks, lateral hip, groin, or thigh. Hip range of motion forward flexion 90 degrees, internal rotation 0 degrees, external rotation 10 degrees. Reproduction of hip and groin pain with hip range of motion. 4- out of 5 hip flexion strength, limited due to pain. 4 out of 5 hip abduction strength. Motor intact quad, hamstring, TA, GSC, EHL, FHL. Sensation intact light touch SPN, DPN, sural, saphenous, tibial nerve distribution. 2+ DP pulse. Toes warm and well-perfused. No calf pain. Negative Channing. Assessment: * Assessment: 1. L eft hip pain - M25.552 (Primary) 2 . O steoarthritis of one hip, left - M16.12 Left hip pain Left hip OA. Plan: * Treatment: * Follow Up: h &p Forms: * Images: * Electronic signature of Terell misael Manriquez PA-C on 05/27/2025 at 08:43 AM EDT Sign off status: Pending * Provider: Alexys Manriquez PA-C Date: 0 05/10/2025 Generated for Nola keen/Darron/Roseline on: 1 08:43 AM EDT History and Physical Notes * HPI (History of Present Illness) Category Sub-Category Detail Notes Category Not es General Info per Patient Report Side affected is Left Patient is a 69-year -old female presents the office for evaluation of left hip pain. Patient says she has had ongoing left hip pain that has been severe for the last 2 years. Hip pain has kept her pretty and active and she has required walker use to assist with ambulation for the last year secondary to hip pain. Has noted significant worsening of pain in the left hip over the last 6 months. She states pain is most severe to the groin but does radiate into the lateral hip and buttocks. She is unable to lay down flat secondary to pain. She has sharp, stabbing pain with any kind of weightbearing, walking, or activity. 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 She is currently in remission. Still has port in place. She does note pain to the left hip that wakes her at night. Has chronic grinding and crepitus through the hip and has had multiple episodes of popping over the last month or 2. No previous hip surgeries but did have bilateral total knees completed at [facility] 6 or 7 years ago. Has some history of chronic low back pain which is not bothering her at this time. She will take Tylenol rarely. Notes minimal to no relief from Tylenol. She does live alone. Has been doing some chair yoga. Has had left hip intra-articular corticosteroid injections in the past without relief. Last 1 was completed at [facility] 2 months ago. Not doing any physical therapy. Patient has a history of some decreased kidney function. No history of diabetes. She did have a pulmonary embolism when undergoing chemotherapy and was treated with Eliquis for 3 months. Not currently on a blood thinner. Does have a history of anemia. Last hemoglobin level was 12.8. Joint or body part affected is Hip Pain occurred Standing, walking, l aying down Work related: No Have you seen another doctor in this practice? No Start of Pain/Cause of Injury Chronic (l asting or reoccurring for more than 3-6 months) Third alliance party responsibility: No MVA No [place] Questions Height (ft):: 5 ft Height (inches):: 2 inches Weight (lbs): 265 Osteoporosis Screening Dexa Scan ever Completed: Yes Examination Category Sub-Category Detail Notes Category Not es General examination General examination: Patient is a pleasant well-appearing 69-year-old female sitting comfortably in a chair. She is awake, alert and oriented x 3, and in no acute distress. Answering questions appropriately. Normal mood and affect. X-ray Imaging Studies 2 view left hip x-rays completed on 04/19/[address] [facility] were reviewed. Images were read and interpreted by Dr. Pat Roberts. Images showed no acute fracture or dislocation. There is increased narrowing at the superior joint hip space with subchondral sclerosis and cystic changes. There is hypertrophy at the periphery of the femoral head and superior acetabulum. Mild sclerosis noted at the SI joint. Osteopenia noted. See dictation by RSS Dictated by Dr. [place] AP pelvis obtained and reviewed. Radiograph demonstrates complete loss of left hip joint space with subchondral sclerosis and periarticular osteophytes. Superior lateral wear pattern. Right hip demonstrates moderate to severe degenerative changes. Severe degenerative changes noted of her lumbar spine with prior hardware. There appears to be the beginning of scoliosis as her lumbar spine appears to lean towards the left. Left Lower Extremity Skin in tact erythema or ecchymosis. Minimal edema. Trace effusion. No tenderness to buttocks, lateral hip, groin, or thigh. Hip range of motion forward flexion 90 degrees, internal rotation 0 degrees, external rotation 10 degrees. Reproduction of hip and groin pain with hip range of motion. 4- out of 5 hip flexion strength, limited due to pain. 4 out of 5 hip abduction strength. Motor intact quad, hamstring, TA, GSC, EHL, FHL. Sensation intact light touch SPN, DPN, sural, saphenous, tibial nerve distribution. 2+ DP pulse. Toes warm and well-perfused. No calf pain. Negative Channing.
--- OUTSIDE RECORDS SUMMARY | 2025-05-17 08:00 | XMS_ITS | Encounter Summary ---
Author Organization [facility] Address [facility] [place] [address] Care Team Providers Care Petrographer Name Role Phone Janet Dillard DO Unavailable Unavailabl Sunny Stone MD Primary Care Provider [phone] Mitch Garcia MD Unavailable [phone] Deepika Garcia Unavailable Unavailable Nona Lomax RD Unavailable [phone] Nia Snider RN Unavailable Unavailable Source Comments In the event this information is protected by the Federal Confidentiality of Alcohol and Drug AbusePatient Records regulations: The Federal rules restrict any use of the information to criminally investigate or prosecute any alcohol or drug abuse patient.[facility] Reason for Visit * Reason Comments Spirometry * Outpatient Procedure (Routine) - Closed Specialty Diagnoses / Procedures Referred By Contac t Referred To Contact [facility] Diagnoses Dyspnea and respiratory abnormalities Procedures LUNG VOLUMES Boom Mcintosh MD [address] [place] [address] Phone: tel: fax: [facility] [place] [address] [place] [address] Referral ID Status Reason Start Date Expiration Date V isits Requested Visits Authorized [id number] Closed Auto-Generate d Referral 04/16/2025 05/16/2026 1 1 Encounter Details Date Type Department Care Team (Desiree st Contact Info) Description 05/17/2025 8:00 AM EDT Procedure Pulmonary Lab [address] [place] [address] Spirometry Social History Tobacco Use Types Packs/Day [...] is lower risk 9 01/29/2023 Data from: https://www.neighborhoodatlas.[facility]/. Last address used for calculation Armando Mayen [...] Care Team (Late st Contact Info) Description 06/07/2025 7:30 AM EDT Specialty Pharmacy [facility] [address] [place] [address] Pharmacist, [facility] [address] [place] [address] [place] [address] Refill - Kisqali [28DS] C10/20 06/08/2025 9:00 AM EDT Office Visit Rheumatology [address] [facility] [place] [address] Immanuel Oliveros SPOOL SALVAGER.HEMATOLOGY TECHNICIAN [address] [facility] [place] [address] RA 06/10/2025 1:30 PM EDT Appointment Procedures [address] [place] [address] Debbie Gunn MD [address] [place], [place] [id number] 07/07/2025 9:00 AM [facility] Infusion Center Hematology/Oncolo gy [address] [place] [address] lab 07/14/2025 9:30 AM [facility] Hematology [address] [place] [address] Mitch Garcia MD [address] [facility] [place] [address] Schedule labs prior to Virtual visit with DR Garcia 07/15/2025 9:00 AM [facility] Hematology/Oncolo gy [address] [place] [address] Prolia injection day after RADHA virtual visit per staff message 08/23/2025 10:00 AM EST Office Visit Kidney Medicine [address] [place] [address] Shante Carroll, SPOOL SALVAGER.HEMATOLOGY TECHNICIAN [address] [facility] [place] [address] 6 month follow up documented as of this encounter Procedures Procedure Name Priority Date/Time Associated Diagnosis Comments LUNG VOLUMES Routine 05/17/2025 7:41 AM EDT Dyspnea and respiratory abnormalities documented in this encounter Results * LUNG VOLUMES (05/17/2025 7:41 AM EDT) VC (L) BOX 1.74 L PULMONARY FUNCTION LAB SVC PREDICTED (L) 2.42 L/S PULMONARY FUNCTION LAB SVC LLN (L) 1.71 L/S PULMONAR Y FUNCTION LAB SVC ULN (L) 3.15 L/S PULMONAR Y FUNCTION LAB IC BOX (L) 1.58 L PULMONARY FUNCTION LAB IC PREDICTED (L) 1.61 L/S PULMONARY FUNCTION LAB ERV BOX (L) 0.16 L PULMONAR Y FUNCTION LAB ERV PREDICTED (L) 0.81 L/S PULMONARY FUNCTION LAB DLCO (ml/min/mmHg) 12.26 ml/min/mmH g PULMONARY FUNCTION LAB DLCO PREDICTED (ml/min/mmHg) 17.54 ml/min/mmH g PULMONARY FUNCTION LAB DLCO LLN (ml/min/mmHg) 13.19 ml/min/mmH g PULMONARY FUNCTION LAB DLCO ULN (ml/min/mmHg) 22.90 ml/min/mmH g PULMONARY FUNCTION LAB FRC Gas (L) 1.38 L PULMONAR Y FUNCTION LAB RV Box PREDICTED (L) 1.76 L PULMONARY FUNCTION LAB RV Gas (L) 1.22 L PULMONARY FUNCTION LAB RV Gas PREDICTED (L) 1.76 L PULMONARY FUNCTION LAB TLC Box PREDICTED (L) 4.48 L PULMONARY FUNCTION LAB TLC Gas (L) 2.96 L PULMONAR Y FUNCTION LAB TLC Gas PREDICTED (L) 4.48 L PULMONARY FUNCTION LAB RV/TLC Box PREDICTED (%) 39 % PULMONARY FUNCTION LAB RV/TLC Gas (%) 41 % PULMO NARY FUNCTION LAB RV/TLC Gas PREDICTED (%) 39 L PULMONARY FUNCTION LAB VA (L) 2.93 L PULMONARY FUNCTION LAB VA PREDICTED (L) 4.10 L PULMONARY FUNCTION LAB DLCO/VA (ml/min/mmHg/L) 0.04 ml/min/mmH g/L PULMONARY FUNCTION LAB DLCO/VA PREDICTED (ml/min/mmHg/L) 0.04 ml/min/mmH g/L PULMONARY FUNCTION LAB DLCOcor (ml/min/mmHg) 12.11 ml/min/mmH g PULMONARY FUNCTION LAB DLCOcor PREDICTED (ml/min/mmHg) 17.54 ml/min/mmH g PULMONARY FUNCTION LAB DLCO/VAcor (ml/min/mmHg/L) 0.04 ml/min/mmH g/L PULMONARY FUNCTION LAB 05/17/2025 7:41 AM EDT Narrative PULMONARY FUNCTION LAB - 05/24/2025 10:16 AM EDT [facility] [address] 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 Only one acceptable or usable maneuver obtained for multiple breath washout. Repeatability could not be assessed. Results should be interpreted with caution. Current ATS/ERS acceptability and repeatability standards for DLCO met with 2 acceptable maneuvers. //AP IMPRESSION: Decrease in TLC indicates restriction. The kCO (DLCO/VA) reflects a normal transfer/diffusion of CO from the alveolar regions to the blood. Clinical correlation recommended. Electronically Signed On 05-24-2025 10:16:17 EDT by Arpita Rodriguez MD ID: [id number] Name: YUE CAPUTO Race: White Ht: 61.02 in Wt: 257.28 lbs Age: 69 Gender: Female : 1955 Dx: Dyspnea and respiratory abnormalities_ Smoking Hx: Non-smoker Doctor: BOOM MCINTOSH Test Date: 05/17/2025 Site: [facility] Tech: Faviola Kent PRE-BRONCH POST-BRONCH Mookie LLN Pred ULN %Pred ZScore Mookie %Pred %Chg ZScore LUNG VOLUMES FRC(N2) 1.38 1.75 2.46 3.35 56 -2.71 ERV 0.16 0.81 19 RV(N2) 1.22 1.06 1.76 2.69 69 -1.23 SVC 1.74 1.71 2.42 3.15 72 -1.57 IC 1.58 1.61 98 TLC(N2) 2.96 3.55 4.48 5.52 66 -2.80 RV/TLC(N2) 41 27 39 52 104 0.24 LUNG DIFFUSION DLCOunc 12.26 13.19 17.54 22.90 69 -2.05 DLCOStdPB 12.11 13.19 17.54 22.90 69 -2.12 VA 2.93 3.28 4.10 5.02 71 -2.41 Kco 4.13 3.26 4.27 5.42 96 -0.21 Comments: BBLV attempted but pt not able to do. Only one acceptable or usable maneuver obtained for multiple breath washout. Repeatability could not be assessed. Results should be interpreted with caution. Current ATS/ERS acceptability and repeatability standards for DLCO met with 2 acceptable maneuvers. //AP us Boom Mcintosh MD SCHEDULED PROCEDURES Final Resul t PULMONARY FUNCTION LAB [address] [place] [address] documented in this encounter Visit Diagnoses Diagnosis Dyspnea and respiratory abnormalities- Primary Other dyspnea and respiratory abnormality documented in this encounter Care Teams Petrographer Relationship Specialty Start Date End Date Sunny Jenkins MD PCP - General Internal Medicine 08/22/23 Janet Dillard DO Referring Family Medicine 07/14/21 Mitch Garcia MD [address] [facility] [place] [address] Physician Hematology/Oncology 09/23/23 Deepika Garcia LSW Boom Truck Driver 09/24/[address] [place] [address] Registered Dietitian Nutrition 10/22/23 Nia Snider, MALORIE Specialty Repairer Helper Hematology/Oncology 04/22/24 documented as of this encounter
--- OUTSIDE RECORDS SUMMARY | 2025-05-17 08:15 | XMS_ITS | Encounter Summary ---
Author Organization [facility] Address [facility] [place] [address] Care Team Providers Care Jewelry Department Supervisor Name Role Phone Janet Dillard DO Unavailable Unavailabl Sunny Stone MD Primary Care Provider [phone] Mitch Garcia MD Unavailable [phone] Deepika Garcia Unavailable Unavailable Nona Lomax RD Unavailable [phone] Nia Snider RN Unavailable Unavailable Source Comments In the event this information is protected by the Federal Confidentiality of Alcohol and Drug AbusePatient Records regulations: The Federal rules restrict any use of the information to criminally investigate or prosecute any alcohol or drug abuse patient.[facility] Reason for Visit * Reason Comments Spirometry * Outpatient Procedure (Routine) - Closed Specialty Diagnoses / Procedures Referred By Contac t Referred To Contact [facility] Diagnoses Dyspnea and respiratory abnormalities Procedures LUNG DIFFUSION CAPACITY (DLCO) DIFFUSING CAPACITY Boom Mcintosh MD [address] [place] [address] Phone: tel: fax: Respiratory [place] [address] [place] [id number] Referral ID Status Reason Start Date Expiration Date V isits Requested Visits Authorized [id number] Closed Auto-Generate d Referral 04/16/2025 05/16/2026 1 1 Encounter Details Date Type Department Care Team (Desiree wilburn Contact Info) Description 05/17/2025 8:15 AM EDT Procedure Pulmonary Lab [address] [facility] [address] Spirometry Social History Tobacco Use Types Packs/Day [...] 9 01/29/2023 Data from: https://www.neighborhoodatlas.medicine.[facility]/. Last address used for calculation [...] AM EDT Specialty Pharmacy [facility] [id number] [place] [address] Pharmacist, [facility] [address] [place] [address] [place] [address] Refill - Kisqali [28DS] /06/08/2025 9:00 AM EDT Office Visit Rheumatology [address] [facility] [place] [address] Immanuel Oliveros LOCOMOTIVE INSPECTOR.PLATE DRILLER [address] [facility] [address] RA 06/10/2025 1:30 PM EDT Appointment Procedures [address] [place] [address] Debbie Gunn MD [address] [place], [place] [id number] 07/07/2025 9:00 AM [facility] Infusion Center Hematology/Oncolo gy [address] [facility] [address] [facility] [place] [address] lab 07/14/2025 9:30 AM [facility] Hematology [address] [place] [address] Mitch Garcia MD [address] [place] [address] Schedule labs prior to Virtual visit with DR Garcia 07/15/2025 9:00 AM [facility] Hematology/Oncolo gy [address] [facility] [place] [address] Prolia injection day after RADHA virtual visit per staff message 08/23/2025 10:00 AM EST Office Visit Kidney Medicine [address] [place] [address] Shante Carroll, LOCOMOTIVE INSPECTOR.PLATE DRILLER [address] [facility] [place] [address] 6 month follow up documented as of this encounter Procedures Procedure Name Priority Date/Time Associated Diagnosis Comments LUNG DIFFUSION CAPACITY (DLCO) Routine 05/17/2025 7:41 AM EDT Dyspnea and respiratory abnormalities documented in this encounter Results * LUNG DIFFUSION CAPACITY (DLCO) (05/17/2025 7:41 AM EDT) 05/17/2025 7:41 AM EDT Narrative PULMONARY FUNCTION LAB - 05/24/2025 10:16 AM EDT [facility] [address] [place], [place] [address] Test Date: 2025-05-17 Pat Name: YUE CAPUTO Department: Room: Gender: Female Weft Straightener: : 1955 Requested By: Order Number: [id number] Reading MD: Arpita Rodriguez MD Interpretive Statements [...] 10:16:17 EDT by Arpita Rodriguez MD ID: [id number] Name: YUE CAPUTO Race: White Ht: 61.02 in Wt: 257.28 lbs Age: 69 Gender: Female : 1955 Dx: Dyspnea and respiratory abnormalities_ Smoking Hx: Non-smoker Doctor: BOOM MCINTOSH Test Date: 05/17/2025 Site: [facility] Tech: Faviola Kent PRE-BRONCH POST-BRONCH Mookie LLN [...] Final Resul t PULMONARY FUNCTION LAB [address] [place] [address] documented in this encounter Visit Diagnoses Diagnosis Dyspnea and respiratory abnormalities- Primary Other dyspnea and respiratory abnormality documented in this encounter Care Teams Jewelry Department Supervisor Relationship Specialty Start Date End Date Sunny Jenkins MD PCP - General Internal Medicine 08/22/23 Janet Dillard DO Referring Family Medicine 07/14/21 Mitch Garcia MD [address] [facility] [place] [address] Physician Hematology/Oncology 09/23/23 Deepika Garcia LSW Hospitalist Medical Director 09/24/[address] [facility] [place] [address] Registered Dietitian Nutrition 10/22/23 Nia Snider, RN Specialty Veterans Employment Representative Hematology/Oncology 04/22/24 documented as of this encounter
--- OUTSIDE RECORDS SUMMARY | 2025-05-17 08:30 | XMS_ITS | Encounter Summary ---
Author Organization [facility] Address [address] [place] [address] Care Team Providers Care Dry Wall Nailer Name Role Phone Janet Dillard DO Unavailable Unavailabl Sunny Stone MD Primary Care Provider [phone] Mitch Garcia MD Unavailable [phone] Deepika Garcia Unavailable Unavailable Nona Lomax RD Unavailable [phone] Nia Snider RN Unavailable Unavailable Source Comments In the event this information is protected by the Federal Confidentiality of Alcohol and Drug AbusePatient Records regulations: The Federal rules restrict any use of the information to criminally investigate or prosecute any alcohol or drug abuse patient.[facility] Reason for Visit * Reason Comments Dyspnea Encounter Details Date Type Department Care Team (Latest Contact Info) Description 05/17/2025 8:30 AM EDT Office Visit Pulmonary Medicine [address] [place], [place] [id number] Dayanna Alatorre APRN.PLASTIC SURGERY TECHNICIAN [address] [place], [place] [id number] Dyspnea and respiratory abnormalities (Primary Dx); Hiatal [...] lower risk 9 01/29/2023 Data from: https://www.neighborhoodatlas.medicine.[facility].edu/. Last address used for calculation [address] 01/29/2023 Comments No Sex and Gender Information Value Date Recorded Sex Assigned at Female 08/14/2024 10:40 AM EST Legal Sex Female 8:08 AM EST Gender Identity Not on file Sexual Orientation Straight 08/14/2024 10 :40 AM EST documented as of this encounter Last Filed Vital Signs Vital Sign Reading Time Taken Comments Blood Pressure 152/55 05/17/2025 8:21 AM EDT Pulse 71 05/17/2025 8:21 AM EDT Temperature - - Respiratory Rate - - Oxygen Saturation 97% 05/17/2025 8:21 AM EDT RA Inhaled Oxygen Concentration - - Weight 116.7 kg (257 lb 4.4 oz) 05/17/2025 8:21 AM EDT Height - - Body Mass Index 47.06 04/16/2025 7:46 AM EDT documented in this [...] this encounter Patient Instructions * Patient Instructions* Dayanna Alatorre APRN.PLASTIC SURGERY TECHNICIAN - 05/17/2025 8:38 AM EDT -Star Astepro - Azelastine 2 sprays each nostril at bedtime. This medication can be used twice daily if it is effective. This medication has a bitter taste, and can cause drowsiness. -Technique for nasal spray administration: First, look slightly down, breathe normally, you do not need to sniff while you spray. To use the nose spray, place the tip in your nose with the opposite hand (left hand, right side of nose, right hand, left side of nose), and aim or point toward the outside of the nose. Do not sniff or snort medication afterwards as this can cause most of the medication to be swallowed. Rather, dab your nose with a tissue if any runs out. documented in this encounter Progress Notes * Dayanna Alatorre APRN.CNP - 05/17/2025 8:42 AM EDT Images from the original note were not included. [facility] ESTABLISHED PATIENT OFFICE VISIT May 17, 2025 My final reccommendations will be communicated back to the requesting physician by way of shared medical record or US mail. Recording using [employer] software for draft documentation of the visit was discussed with the patient/authorized field representatives director; all questions welcomed and answered. Patient/authorized field representatives director agreed to proceed 1. Dyspnea and respiratory abnormalities (R06.00) 2. Hiatal hernia (K44.9) 3. Other idiopathic scoliosis, unspecified spinal region (M41.20) 4. Class 3 severe obesity with body mass index (BMI) of 45.0 to 49.9 in adult, unspecified obesity type, unspecified whether serious comorbidity present (HCC) (E66.643) Chronic dyspnea with slightly reduced diffusing capacity and mild restriction on lung volumes, likely multifactorial due to large hiatal hernia, scoliosis, severe obesity, and deconditioning from limited mobility. Prior inhaler trials have been ineffective. No evidence of intrinsic pulmonary pathology on CT scan. - Discussed that dyspnea is likely multifactorial due to hiatal hernia, scoliosis, obesity, and deconditioning. - Advised deep breathing exercises to help maintain lung expansion. - Discussed pulmonary rehab as a potential option after hip replacement surgery. - See as needed. I have discussed the above recommendations in detail with the patient. Patient verbalizes understanding and is in agreement with plan as stated above. Patient has been instructed to call our office, their PCP, or go to the nearest emergency department for new or worsening problems, including but not limited to, increasing shortness of breath, cough, fever, or chills. Electronically signed by Dayanna Alatorre APRN.[facility] May 17, 2025 8:46 AM INTERVAL HPI: 05/17/2025 Yue Caputo is a 69 year old female who has a past medical history of Atrial fibrillation (HCC), Diverticulitis, GERD (gastroesophageal reflux disease), Hiatal hernia, HLD (hyperlipidemia), HTN (hypertension), Obesity, unspecified, Other and unspecified hyperlipidemia, Scoliosis, Spinal stenosis, unspecified region other than cervical, and UTI (urinary tract infection). Never smoker. Yue Caputo is a 69-year-old female with a history of dyspnea, scoliosis, and a large hiatal hernia, presenting for follow-up. Yue reports chronic dyspnea that has persisted for years without significant change. She has tried various inhalers in the past, none of which have provided relief. Recent pulmonary function tests revealed slightly reduced diffusing capacity and slight restriction in lung volumes. She has a known large hiatal hernia and scoliosis, which are believed to contribute to her respiratory symptoms. She has not been tested for sleep apnea and expresses no interest in pursuing it. She also reports chronic heartburn and acid reflux, which have been less severe recently due to decreased appetite attributed to Kisqali. She denies current chest pain or pressure, but reports constant throat clearing due to sinus drainage, which she believes is allergy-driven. She has not used nasal sprays recently. Yue is scheduled for hip replacement surgery in July and anticipates rehabilitation afterward. She has a history of scoliosis surgeries approximately 40 years ago for the upper spine and 25 years ago for the lower spine, with rods placed at the top of the spine. She expresses concern about the potential for lung collapse due to her scoliosis, noting that her cousin with scoliosis experienced a collapsed lung. A complete ROS was preformed and all areas were negative except for what is listed Constitutional: (+) decreased appetite Ears/Nose/Mouth/Throat: (+) postnasal drip, (+) throat clearing Respiratory: (+) shortness of breath Gastrointestinal: (+) heartburn I have reviewed and updated the complete medication list in the EMR. ALLERGIES Allergen Reactions Fentanyl Intolerance Drop in RR and drop in pulse ox to 70% Adhesive Tape-Silic* Rash Sulfa (Sulfonamide * Unknown IMMUNIZATIONS: Immunization History Administered Date(s) Administered COVID-19 original vaccine, full dose, monovalent (MODERNA) 07/19/2021 12/09/2022 COVID-19 vaccine (DEMOND) 11/23/2020 pneumococcal conjugate (PCV13) vaccine, 13 valent (PREVNAR 13) 08/04/2016 02/14/2021 pneumococcal polysaccharide (PPV23) vaccine, 23 valent (PNEUMOVAX 23) 12/31/2021 zoster (RZV) vaccine, recombinant (SHINGRIX) 02/14/2021 04/28/2022 PHYSICAL EXAMINATION: BP 152/55 (BP Site: Right Arm, BP Position: Sitting, BP Cuff Size: Thigh) Pulse 71 Wt 116.7 kg (257 lb 4.4 oz) LMP 08/26/2006 (Approximate) SpO2 97% BMI 47.06 kg/m?? General: Alert, oriented, no acute distress Respiratory: Clear to posterior auscultation, bilaterally Cardiovascular: Jugular venous pressure normal. Regular rate and rhythm, normal S1 and S2, no murmurs or added sounds Abdomen: Soft, non-tender, normal bowel sounds Extremities: No clubbing, cyanosis, or edema DATA REVIEW: I have personally reviewed the following: Most recent labs reviewed. Hemoglobin (g/dL) Date Value 03/30/2025 12.8 04/02/2018 10.2 Hematocrit (%) Date Value 03/30/2025 38.1 04/02/2018 31.7 WBC (k/uL) Date Value 03/30/2025 3.64 04/02/2018 12.08 Glucose (mg/dL) Date Value 03/30/2025 140 04/02/2018 [...] (U/L) Date Value 03/30/2025 19 03/19/2018 38 Last Spirometry SPIROMETRY WITH DILATOR IF OBSTRUCTED Collected: 04/16/2025 7:25 AM (Final result) Narrative: Melody [facility] [address] [facility] [place] [id number] Test Date: 2025-04-16 Pat Name: YUE CAPUTO Department: Room: Gender: Female Manager Continuous Improvement: : 1955 Requested By: Melonie Paz MD Order Number: [id number] Reading MD: Melonie Paz MD Interpretive Statements Current ATS/ERS acceptability and repeatability standards for spirometry met. Start of test and EOFE criteria met. //FP IMPRESSION: Spirometry is normal. Electronically Signed On 04-16-2025 09:54:21 EDT by Melonie Paz MD ID: [id number] Name: YUE CAPUTO Race: White Ht: 61.02 in Wt: 260.59 lbs Age: 69 Gender: Female : 1955 Dx: Dyspnea and respiratory abnormalities_ Smoking Hx: Non-smoker Doctor: BOOM TIM Test Date: 04/16/2025 Site: [facility] Tech: Leonard Cornejo PRE-BRONCH POST-BRONCH Mookie LLN Pred ULN %Pred ZScore Mookie %Pred %Chg ZScore SPIROMETRY FVC 2.06 1.71 2.42 3.15 84 -0.84 FEV1 1.62 1.33 1.91 2.45 84 -0.84 FEV1/FVC 0.79 0.66 0.79 0.90 98 -0.12 FEFMax 4.16 3.61 5.17 6.72 80 -1.06 FEF50 2.52 1.24 2.85 4.46 88 -0.34 FIF50 2.48 FEF50/FIF50 1.01 90-100 FIVC 1.98 FLW50-98 1.53 0.80 1.74 3.07 87 -0.32 ExpiredTime 6.41 TimeToFEFMax 0.13 LESLEY 0.10 VolExtrap% 5 Comments: Current ATS/ERS acceptability and repeatability standards for spirometry met. Start of test and EOFE criteria met. //FP Latest Ref Rng & Units 04/16/2025 05/17/2025 Spirometry Data FVC PRE (L) L 2.06 FEV1 PRE (L) L 1.62 FEV1/FVC PRE (%) % 79 LLE80-28% PRE (L/S) L/S 1.53 PEF PRE (L/S) L/S 4.16 VC (L) BOX L 1.74 P IC BOX (L) L 1.58 P ERV BOX (L) L 0.16 P DLCO (ml/min/mmHg) ml/min/mmHg 12.26 P VA (L) L 2.93 P DLCO/VA (ml/min/mmHg/L) ml/min/mmHg/L 0.04 P DLCOcor (ml/min/mmHg) ml/min/mmHg 12.11 P P Preliminary result Last CT Chest - Impression Only CTA CHEST (NONGATED) W IVCON Exam End: 02/13/2024 9:11 AM (Final result) Last XR Chest - Impression Only XR CHEST 2V FRONTAL/LAT Collected: 12/03/2022 (Final result) Impression: No acute cardiopulmonary abnormality identified. Report reported and signed by Jacinto Duckworth on 12/03/2022 1128 No results found for this or any previous visit (from the past [id number] hours). Dayanna Alatorre APRN.[facility] May 17, 2025 This note was partially generated using [employer] voice recognition system, and there may be some incorrect words, spellings, and punctuation that were not noted in checking the note before saving. documented in this encounter Plan of Treatment Upcoming Encounters Date Type Department Care Team (Late st Contact Info) Description 06/07/2025 7:30 AM EDT Specialty Pharmacy [facility] [address] [place] [address] [id number] [place] [address] Pharmacist, [facility] [address] [place] [address] [place] [address] Refill - Kisqali [28DS] 06/08/2025 9:00 AM EDT Office Visit Rheumatology [address] [place] [address] Immanuel Oliveros APRN.PLASTIC SURGERY TECHNICIAN [address] [facility] [place] [address] 06/10/2025 1:30 PM EDT Appointment Procedures [address] [place] [address] Debbie Gunn MD [address] [place] [address] [address] [place], [place] [id number] 07/07/2025 9:00 AM EST [facility] Hematology/Oncolo gy [address] [place] [address] lab 07/14/2025 9:30 AM [facility] Hematology [address] [place] [address] Mitch Garcia MD [address] [place] [address] Schedule labs prior to Virtual visit with DR Garcia 07/15/2025 9:00 AM EST Infusion Center Hematology/Oncolo gy [address] [place] [address] Prolia injection day after RADHA virtual visit per staff message 08/23/2025 10:00 AM EST Office Visit Kidney Medicine [address] [address] Shante Carroll APRN.PLASTIC SURGERY TECHNICIAN [address] [facility] [place] [address] 6 month follow up documented as of this encounter Visit Diagnoses [...] (HCC) documented in this encounter Care Teams Dry Wall Nailer Relationship Specialty Start Date End Date Sunny Jenkins MD PCP - General Internal Medicine 08/22/23 Janet Dillard DO Referring Family Medicine 07/14/21 Mitch Garcia MD [address] [place] [address] [place] [address] Physician Hematology/Oncology 09/23/23 Deepika Garcia LSW Apparel Manager 09/24/[address] [place] [address] [place] [address] Registered Dietitian Nutrition 10/22/23 Nia Snider, RN Specialty Forklift Truck Mechanic Hematology/Oncology 04/22/24 documented as of this encounter
--- OUTSIDE RECORDS SUMMARY | 2025-05-24 07:47 | XMS_ITS ---
Author Name Auto Generated Organization OHIP Care Team Providers Care Counter Helper Name Role Phone RADHA CABRERA Admitting Unavailable RADHA CABRERA Attending Unavailable GREGORY, MUHAMID M Primary Care Unavailable YUE NEGRO Referring Unavailable GREGORY, MUHAMID M Primary Care Unavailable Andres MANN Admitting Unavailable Andres MANN Attending Unavailable GREGORY, MUHAMID M Primary Care Unavailable MARY, LEO Referring Unavailable LASHIN, OSSAMA M Attending Unavailable LASHIN, OSSAMA M Referring Unavailable GREGORY, MUHAMID M Primary Care Unavailable RAKESH BRUNER Attending Unavailable SHEPHERDOLIVER Referring Unavailable GREGORY, MUHAMID M Primary Care Unavailable LASHIN, OSSAMA M Referring Unavailable GREGORY, MUHAMID M Primary Care Unavailable PEACE SHEPHERDA Admitting Unavailable OLIVER SHEPHERD Attending Unavailable SHEPHERD, OLIVER Referring Unavailable GREGORY, MUHAMID M Primary Care Unavailable GREGORY, MUHAMID M Primary Care Unavailable JOSE, MARIA A Referring Unavailable JOHNATHAN J ADRYAN Attending Unavailable JOSE, MARIA A Referring Unavailable GREGORY, MUHAMID M Primary Care Unavailable NICOLE SON Attending Unavailable KARAMLOU, MARIA A Referring Unavailable GREGORY, MUHAMID M Primary Care Unavailable GÓMEZ BAKER Referring Unavailable GREGORY, MUHAMID M Primary Care Unavailable KARAMLOU, MARIA A Attending Unavailable SHEPHERD, OLIVER Referring Unavailable GREGORY, MUHAMID M Primary Care Unavailable SHEPHERD, OLIVER Admitting Unavailable SHEPHERD, OLIVER Attending Unavailable SHEPHERD, OLIVER Referring Unavailable GREGORY, MUHAMID M Primary Care Unavailable Andres MANN Attending Unavailable SELF Referring Unavailable GREGORY, MUHAMID M Primary Care Unavailable RITA TIMMONS Referring Unavailable GREGORY, MUHAMID M Primary Care Unavailable KARAMLOU, MARIA A Referring Unavailable GREGORY, MUHAMID M Primary Care Unavailable KARAMLOU, MARIA A Referring Unavailable GREGORY, MUHAMID M Primary Care Unavailable KARAMLOU, MARIA A Attending Unavailable GREGORY, MUHAMID M Primary Care Unavailable KARAMLOU, MARIA A Referring Unavailable GREGORY, MUHAMID M Primary Care Unavailable KARAYLEEN, MARIA A Attending Unavailable GREGORY, MUHAMID M Primary Care Unavailable KARAMLOU, MARIA A Referring Unavailable GREGORY, MUHAMID M Primary Care Unavailable DAYANNA FARIAS Attending Unavailable JULES TIM Referring Unavailable GREGORY, MUHAMID M Primary Care Unavailable KARAMLOU, MARIA A Referring Unavailable GREGORY, MUHAMID M Primary Care Unavailable RAKESH BRUNER Attending Unavailable SHEPHERD, OLIVER Referring Unavailable GREGORY, MUHAMID M Primary Care Unavailable GREGORY, MUHAMID M Primary Care Unavailable JULES TIM Referring Unavailable GREGORY, MUHAMID M Primary Care Unavailable JULES TIM Referring Unavailable GREGORY, MUHAMID M Primary Care Unavailable GREGORY, MUHAMID M Primary Care Unavailable KARAMLOU, MARIA A Attending Unavailable GREGORY, MUHAMID M Primary Care Unavailable LASHIN, OSSAMA M Attending Unavailable LASHIN, OSSAMA M Referring Unavailable GREGORY, MUHAMID M Primary Care Unavailable GREGORY, MUHAMID M Primary Care Unavailable YUE NEGRO Attending Unavailable KARAMLOU, MARIA A Referring Unavailable GREGORY, MUHAMID M Primary Care Unavailable RAKESH BRUNER Attending Unavailable SHEPHERD, OLIVER Referring Unavailable GREGORY, MUHAMID M Primary Care Unavailable GREGORY, MUHAMID M Primary Care Unavailable SHANTHI PRINCE Referring Unavailable GREGORY, MUHAMID M Primary Care Unavailable KARAMLOU, MARIA A Attending Unavailable GREGORY, MUHAMID M Primary Care Unavailable GREGORY, MUHAMID M Primary Care Unavailable PEACE SHEPHERDA Attending Unavailable SHEPHERD, OLIVER Referring Unavailable GREGORY, MUHAMID M Primary Care Unavailable GREGORY, MUHAMID M Primary Care Unavailable KARAMLOU, MARIA A Attending Unavailable GREGORY, MUHAMID M Primary Care Unavailable NICOLE SON Referring Unavailable GREGORY, MUHAMID M Primary Care Unavailable GÓMEZ BAKER Attending Unavailable KARAMLOU, MARIA A Referring Unavailable GREGORY, MUHAMID M Primary Care Unavailable KARAMLOU, MARIA A Referring Unavailable GREGORY, MUHAMID M Primary Care Unavailable ANNEL ATKINS Attending Unavailable GREGORY, MUHAMID M Primary Care Unavailable JULES TIM Unavailable GÓMEZ BAKER Referring Unavailable GREGORY, MUHAMID M Primary Care Unavailable KARAMLOU, MARIA A Referring Unavailable GREGORY, MUHAMID M Primary Care Unavailable KARAMLOU, MARIA A Referring Unavailable GREGORY, MUHAMID M Primary Care Unavailable RAKESH BRUNER Attending Unavailable SHEPHERD, OLIVER Referring Unavailable GREGORY, MUHAMID M Primary Care Unavailable GREGORY, MUHAMID M Attending Unavailable GREGORY, MUHAMID M Referring Unavailable GREGORY, MUHAMID M Primary Care Unavailable RAKESH LAMB Attending Unavailable GREGORY, MUHAMID M Referring Unavailable GREGORY, MUHAMID M Primary Care Unavailable Gregory, Muhamid Admitting Unavailable Gregory, Muhamid Primary Care Unavailable Gregory, Muhamid Attending Unavailable Karamlou, Maria A Admitting Unavailable Karamlou, Maria A Attending Unavailable Gregory, Muhamid Primary Care Unavailable PROBLEMS DATE TYPE CONDITION / CODE ATTENDING STATUS [facility] 07/29/2023 Active Obesity, Class I II, BMI 40-49.9 (morbid obesity) (HCC) / E66.813(ICD-10) NA Active [facility] 01/31/2023 Active PETERSON (dyspnea on exertion) / R06.09(ICD-10) NA Active [facility] 03/15/2022 Active Class 3 severe o besity with body mass index (BMI) of 45.0 to 49.9 in adult, unspecified obesity type, unspecified whether serious comorbidity present (HCC) / E66.813(ICD-10) DAYANNA FARIAS Active [facility] 03/15/2022 Active Class 3 severe o besity with body mass index (BMI) of 45.0 to 49.9 in adult, unspecified obesity type, unspecified whether serious comorbidity present (HCC) / Z68.42(ICD-10) DAYANNA FARIAS Active [facility] 05/17/2025 Active Dyspnea and resp iratory abnormalities / R06.00(ICD-10) FARIAS DAYANNA Active [facility] 05/17/2025 Active Dyspnea and resp iratory abnormalities / R06.89(ICD-10) PARTHA FARIASIE Active [facility] 05/17/2025 Active Hiatal hernia / K44.9(ICD-10) DAYANNA FARIAS Active [facility] 05/17/2025 Active Other idiopathic scoliosis, unspecified spinal region / M41.20(ICD-10) DINORA DAYANNA Active [facility] 04/16/2025 Active Dyspnea, unspeci fied type / R06.00(ICD-10) NA Active [facility] 04/13/2025 Active Osteopenia of mu ltiple sites / M85.89(ICD-10) MARIA A GARCIA Active [facility] 04/13/2025 Active Bilateral leg ed clara / R60.0(ICD-10) MARIA A GARCIA Active [facility] 04/05/2025 Unknown Acute recurrent pansinusitis / J01.41(ICD-10) RAKESH LAMB Active [facility] 04/05/2025 Unknown Acute candidiasi s of vulva and vagina / B37.31(ICD-10) RAKESH LAMB Active [facility] 04/05/2025 Unknown Candidiasis of s kin and nail / B37.2(ICD-10) RAKESH LAMB Active [facility] 04/05/2025 Unknown sinus infection / UNK(Unknown) RAKESH LAMB Active [facility] 04/01/2025 Active Stage 3 chronic kidney disease, unspecified whether stage 3a or 3b CKD (HCC) / N18.30(ICD-10) NA Active [facility] 05/18/2024 Active Pulmonary emboli sm, other, unspecified chronicity, unspecified whether acute cor pulmonale present (HCC) / I26.99(ICD-10) NA Active [facility] 12/24/2023 Active Stage 3a chronic kidney disease (HCC) / N18.31(ICD-10) NA Active [facility] 07/26/2023 Active Rheumatoid arthr itis, involving unspecified site, unspecified whether rheumatoid factor present (HCC) / M06.9(ICD-10) Active [facility] 07/26/2023 Active Morbid obesity ( HCC) / E66.01(ICD-10) Active [facility] 07/26/2023 Active Disorder of mitr al valve / I05.9(ICD-10) Active [facility] 02/05/2023 Active Palpitations / R00.2(ICD-10) Active [facility] 01/31/2023 Active Primary hyperten johny / I10(ICD-10) Active [facility] 03/15/2022 Active Gastroesophageal reflux disease, unspecified whether esophagitis present / K21.9(ICD-10) Active [facility] 03/15/2022 Active Chronic obstruct mecca pulmonary disease, unspecified COPD type ([facility]) / J44.9(ICD-10) NA Active [facility] 03/19/2018 Active Mixed hyperlipid emia / E78.2(ICD-10) [facility] 03/19/2025 Active Pre-op evaluatio n / Z01.818(ICD-10) Active [facility] 02/23/2025 Active Inclusion cyst / L72.0(ICD-10) Andres MANN Active [facility] 02/19/2025 Active Abnormal finding of blood chemistry, unspecified / R79.9(ICD-10) YUE NEGRO Active [facility] 02/15/2025 Active Difficulty breat alejandra / R06.89(ICD-10) GÓMEZ BAKER Active [facility] 02/15/2025 Active Painful scar / R52(ICD-10) Andres MANN Active [facility] 02/15/2025 Active Painful scar / L90.5(ICD-10) Andres MANN Active [facility] 02/15/2025 Active Excess skin / L98.7(ICD-10) Andres MANN Active [facility] 02/15/2025 Active Primary osteoart hritis of left hip / M16.12(ICD-10) NICOLE SON Active [facility] 02/15/2025 Active Pain in left hip / M25.552(ICD-10) NICOLE SON Active [facility] 07/23/2023 Active Invasive lobular carcinoma of breast in female (HCC) / C50.919(ICD-10) NA Active [facility] 10/15/2024 Active Cutaneous absces s of groin / L02.214(ICD-10) ANNEL ATKINS Active [facility] 10/13/2024 Unknown Lymphedema, not elsewhere classified / I89.0(ICD-10) Flip Jenkins [facility] 09/30/2024 Unknown Encounter for sc reening for osteoporosis / Z13.820(ICD-10) Maria A Garcia [facility] 05/18/2024 Active Multiple thyroid nodules / E04.2(ICD-10) RADHA CABRERA [facility] 07/17/2024 Active Pre-op testing / Z01.818(ICD-10) NA Active [facility] 06/18/2024 Active Status post josh ract surgery, right / Z98.41(ICD-10) RAKESH BRUNER Active [facility] 06/09/2024 Active Status post josh ract surgery, left / Z98.42(ICD-10) RAKESH BRUNER Active [facility] 01/28/2024 Unknown Rheumatoid arthr itis with rheumatoid factor, unspecified / M05.9(ICD-10) FLIP JENKINS [facility] 06/10/2024 Unknown Encounter for ge neral adult medical examination without abnormal findings / Z00.00(ICD-10) FLIP JENKINS Active [facility] 06/10/2024 Unknown Pain in unspecif ied hip / M25.559(ICD-10) FLIP JENKINS Active [facility] 06/10/2024 Unknown Pain in unspecif ied joint / M25.50(ICD-10) FLIP JENKINS Active [facility] 06/10/2024 Unknown Annual Exam / FREETEXT(AOF) FLIP JENKINS Active [facility] 06/02/2024 Active Combined forms o f age-related cataract of both eyes / H25.813(ICD-10) OLIVER SHEPHERD Active [facility] PROCEDURES No Procedure Records Found RESULTS HISTORY PHYSICAL Observed: 05/24/2025 8:00 AM Status: COMPLETED Source: [facility] HNO ID: [id number] Author: HANSA SCHWARTZ APRN.COP EXAMINER Service: ? Author Type: Nurse Practitioner Type: H&P Filed: 05/24/2025 08:22 Note Text: [facility] HISTORY AND PHYSICAL EXAMINATION SERVICE DATE: 05/24/2025 SERVICE TIME: 8:21 AM PRIMARY CARE PHYSICIAN: Flip Jenkins MD Assessment Patient has the following medical conditions which may affect sintia-operative course: Pulmonary embolism (HCC) Assessment: PE 11/05/2023 was on Eliquis for 3 months Primary hypertension Assessment: Stable, compliant on rx . Follows with PCP. Last 3 Encounter BP Readings: Date: BP: 05/17/2025 152/55 04/16/2025 149/63 04/13/2025 151/53 Palpitations Assessment: - Stable on Metoprolol - Evaluated for possible atrial fibrillation on metoprolol - Follows with Dr. John Dc ( Cardiology) Mixed hyperlipidemia Assessment: Compliant on statin therapy, Atorvastatin (Lipitor). Encouraged lifestyle modifications. Disorder of mitral valve Assessment: trace mitral regurgitation per 08/2023 ECHO COPD (chronic obstructive pulmonary disease) (HCC) Assessment: - Follows with Pulmonology - Office Visit with Dayanna Farias APRN.CNP (05/17/2025) - Office Visit with Jules Tim MD (04/16/2025) - Compliant on inhalers. - Denies any new or worsening respiratory symptoms. Denies recent exacerbations or hospitalizations. - Denies use of oxygen. - pulse ox 95% on RA PETERSON (dyspnea on exertion) Assessment: at baseline GERD (gastroesophageal reflux disease) Assessment: - Controlled on medication. - Advised avoidance of triggers. - Following with PCP. Stage 3a chronic kidney disease (HCC) Assessment: Follows with nephrology Latest Ref Rng AND Units 03/30/2025 12/24/2024 09/11/2024 BMP Glucose 74 - 99 mg/dL 140 181 173 BUN 7 - 21 mg/dL 18 18 25 Creatinine 0.58 - 0.96 mg/dL 1.48 1.25 1.74 Sodium 136 - 144 mmol/L 137 142 140 Potassium 3.7 - 5.1 mmol/L 4.5 4.3 4.8 Chloride 98 - 107 mmol/L 101 105 102 CO2 22 - 30 mmol/L 25 25 22 Anion Gap 8 - 15 mmol/L 11 12 16 Calcium 8.5 - 10.2 mg/dL 9.5 9.3 9.3 EGFR >=60 mL/min/1.73m? 38 46 31 Invasive lobular carcinoma of breast in female (HCC) Assessment: - History of Left mastectomy with chemo and radiation - Radiation L chest wall and regional nodes 03/03/2024-03/24/2024 - Following with oncology Obesity, Class III, BMI >= 40 Assessment: Body mass index is 47.01 kg/m?. ANESTHESIA FINDINGS: Intubation History: No history of difficult intubation. No abnormal airway history Significant Anesthesia Considerations: none Airway History: No history of difficult airway No abnormal airway history Richardson Activity Status Index: METS: Walk indoors, such as around the house (1.75 METs) Do light work around the house, such as dusting or washing dishes (2.70 METs) Take care of self; that is eating, dressing, bathing, using the toilet (2.75 METs) Walk a block or two on level ground (2.75 METs) Do moderate work around the house, such as vacuuming, sweeping floors, or carrying in groceries (3.50 METs) Do yardwork, such as raking leaves, weeding, or pushing a power mower (4.50 METs) Climb a flight of stairs or walk up a hill (5.50 METs) DASI Score: 23.45 Patient denies any chest pain or undue shortness of breath with the above physical activity. Clinical Frailty Scale: 3. Well, with treated comorbid disease STOP-Bang Score: Has or is being treated for high blood pressure BMI greater than 35 kg/m2 Patient over 50 years old Has a large neck Denies snoring loudly Denies feeling tired, fatigued, or sleepy during the daytime Has not been observed to stop breathing or choking/gasping during sleep Non-male patient STOP-Bang Score: 4 ARISCAT Score: Age: 51-80 Preoperative SpO2: 91-95% Respiratory infection in the last month: No Preoperative anemia: No Surgical incision: peripheral Duration of surgery: <2 hrs Emergency procedure: No ARISCAT Score: 11 I - PHYSICAL EVALUATION AIRWAY Patient intubated: No. Tracheostomy tube not present Mallampati: IV. TM distance: >3 FB. Neck ROM: limited flexion and extension. Mouth openin FB. Short neck: yes. Thick neck: yes Microretrognathia/Micronagthia/Recessed Chin: No DENTAL Dental findings: teeth intact. II - ANESTHESIA PLAN Informed Consent Prepared for Surgery: optimally prepared for surgery. CONSULTS: Patient does not require consults for optimization at this time Planned Anesthetic: anesthesia choice The Following Tests/Procedures Have Been Initiated: No orders of the defined types were placed in this encounter. This is a virtual visit using WhatsNexx visit. It required patient-provider interaction for the medical decision making as documented below. REASON FOR VISIT: Yue Caputo is a 69 year old female who is scheduled for EGD DIAGNOSTIC at the request of Dr. @[email or web address]@ for consultation. My final recommendation will be communicated back to the requesting physician by way of shared medical record or letter. Subjective The patient has the following: COVID-19 Immunization Status This patient has no relevant Health Maintenance data. CHIEF COMPLAINT: pre op HPI: Patient has been identified by name and date of : Yes Reason for contact: PACC visit Accompanied by: Self Patient is a 69 year old female scheduled for pre anesthesia consultation for procedure on at [facility]. Patient presenting with hx of GERD. Denies abdominal pain. Denies hematemesis, difficulty swallowing or breathing, nausea or vomiting. Has elected for procedure above. This is a virtual visit. The visit was conducted using WhatsNexx visit. It required patient-provider interaction for the medical decision making as documented below. I have communicated my name and active licensure. The patient's identity and physical location were verified at the time of this visit. Either the patient or their legal customer loyalty representative has been informed of the risks and benefits of and alternatives to treatment through a remote evaluation and consents to proceed with the evaluation remotely. REVIEW OF SYSTEMS: General: No weight loss, malaise or fevers. Neurological: Negative for: dementia, headaches, impaired sensorium, peripheral neuropathy, seizures, TIA and strokes. Respiratory: Positive for: COPD, current cough, bronchodilator used daily for the last 3 months, dyspnea and orthopnea. Negative for: asthma, bronchitis, home oxygen, pneumonia within 6 weeks, tobacco use, URI < 2 weeks and obstructive sleep apnea. Cardiovascular: Positive for: DVT/PE, hyperlipidemia, hypertension and murmur/valvular heart disease Negative for: abdominal aortic aneurysm, AICD/PPM, angina, anticoagulation therapy, arrhythmia, atrial fibrillation, CAD, chest pain, CHF, congenital heart defect, recent ID, PTCA, PVD, open heart surgery and valve surgery. GI: Positive for: GERD Negative for: abdominal pain, GI bleed <30 days, hepatitis, liver disease, nausea, vomiting and ETOH >2 drinks/day. : CKD 3 Negative for: on dialysis, dysuria, frequent urination, hematuria and urinary tract infection. 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 Endocrine: Negative for: diabetes mellitus, hyperthyroidism and hypothyroidism. Hematology: Negative for: anemia, bruises/bleeds easily, factor V Leiden, hemophilia, thrombocytopenia, von Willebrand disease, transfusion of at least 4 units within 72 hours prior to surgery and chronic anti-coagulation/platelet meds. Oncology: H of breast cancer . No history of CA metastasis, chemo within 30 days, or radiotherapy within 90 days. No history of oncological symptoms or problems. Psych: No history of psychiatric symptoms or problems. Musculoskeletal: Positive for: rheumatoid arthritis. Skin: Negative for lesions, rash and itching. Implanted Devices: No implanted devices. The patient has the following comorbidities: PAST MEDICAL HISTORY Diagnosis Date Atrial fibrillation [...] Family History Strabismus No Family History SOCIAL HISTORY[1] Prior to Admission medications as of 05/24/25 0801 Medication Sig Last Dose Taking letrozole (FEMARA) 2.5 mg tablet TAKE 1 TABLET BY MOUTH EVERY DAY Yes ribociclib (KISQALI) 400 mg/day (200 mg x 2) tab Take 2 tablets (400 mg) by mouth once daily for 21 days on, then 7 days off to complete a 28-day treatment cycle. Discard after 60 days from fill date. Yes cholecalciferol (VITAMIN D-3) 5,000 unit tab Take 5,000 Units by mouth once daily. Yes spironolactone (ALDACTONE) 25 mg tablet Take 1 tablet by mouth every afternoon. Yes atorvastatin (LIPITOR) 20 mg tablet Take 1 tablet by mouth once daily. Yes losartan (COZAAR) 50 mg tablet Take 50 mg by mouth once daily. Yes esomeprazole magnesium (NEXIUM ORAL) Take 20 mg by mouth once daily. Yes furosemide (LASIX) 20 mg tablet Take 20 mg by mouth once daily. Yes MULTIVITAMIN ORAL Take 1 Dose by mouth once daily. Yes potassium chloride (K-TAB) 10 mEq tablet Take 10 mEq by mouth once daily. Yes METOPROLOL 100 MG TAB Take 50 mg by mouth once daily. Yes nystatin (MYCOSTATIN) cream Apply 1 application to affected area. Patient not taking: Reported on 05/17/2025 No medication comments found. ALLERGIES Allergen Reactions Fentanyl Intolerance Drop in RR and drop in pulse ox to 70% Adhesive Tape-Silic* Rash Sulfa (Sulfonamide * Unknown Objective PHYSICAL EXAM: (if completed, exam performed via video enabled technology) General: alert and oriented, healthy appearance and morbidly obese. Pertinent negatives noted - not distressed. Skin: normal color, no rash or lesions. HEENT: Head is normocephalic, no abnormality or lesion noted. Eyes show no injection and visual acuity is grossly normal Ears noted grossly normal hearing Nose exam notes external nose is normal without rhinorrhea Oropharynx exam notes moist mucous membranes with no noted tonsillar hypertrophy, erythremia or edema Uvula is midline. . Cardiovascular: Regular rate and rhythm per pt report. Respiratory: normal breath sounds, no wheezes or crackles. Equal chest rise with normal respiratory effort. Abdomen: soft. Pertinent negatives noted - not distended and not tender. No pain per palpation per patient. Extremities: no deformity, no edema or tenderness, no joint swelling or clubbing. Neurological: normal cognition and motor skills. Gait stated to be normal per patient. PAIN ASSESSMENT: VITALS: Pulse 96 Temp [no fever[ Resp 16 Ht 5' 2 (1.58m) Wt 257 lb (116.6kg) SpO2 95% LMP 08/26/2006 BMI 46.99 kg/(m2). Diagnostic tests reviewed for today's visit: Lab Value Units Date High Low HB 12.8 g/dL 03/30/2025 15.5 11.5 HCT 38.1 % 03/30/2025 46.0 36.0 WBC 3.64 k/uL 03/30/2025 11.00 3.70 PLT 346 k/uL 03/30/2025 400 150 NA 137 mmol/L 03/30/2025 144 136 K 4.5 mmol/L 03/30/2025 5.1 3.7 GLUC 140 mg/dL 03/30/2025 99 74 BUN 18 mg/dL 03/30/2025 21 7 CREAT 1.48 mg/dL 03/30/2025 0.96 0.58 PTSEC No results within date range. INR No results within date range. APTT No results within date range. ALT 19 U/L 03/30/2025 38 7 AST 15 U/L 03/30/2025 35 13 TBILI 0.6 mg/dL 03/30/2025 1.3 0.2 TSH No results within date [...] 6.3 Recent Results (from the past 8760 hours) ECG COMPLETE Collection Time: 12/24/24 9:05 AM Result Value Ventricular Rate 70 Atrial Rate 70 P-R Interval 218 QRS Duration 76 QT Interval 392 QTC Calculation (Bazett) 423 Calculated R [place] 169 Calculated T [place] 143 Impression SUSPECT ARM LEAD REVERSAL, PLEASE REPEAT SINUS RHYTHM WITH 1ST DEGREE AV BLOCK LATERAL MYOCARDIAL INFARCTION , AGE UNDETERMINED ABNORMAL ECG No results found for this or any previous visit (from the past 13880 hours). Instructions Given to Patient: Instructions located in the after visit summary. Patient given verbal and written preop instructions and voices comprehension and compliance. SIGNATURE: Hansa Schwartz APRN.NEY PATIENT NAME: Yue Caputo DATE: May 24, 2025 TIME: 7:06 AM PAGER/CONTACT #: [1] Social History Tobacco Use Smoking status: Never Smokeless tobacco: Never Vaping Use Vaping status: Never Used Substance Use Topics Alcohol use: Not Currently Comment: socially- couple times per year Drug use: Never PROGRESS Observed: 05/17/2025 8:42 AM Status: COMPLETED Source: [facility] ID: [id number] Author: DAYANNA FARIAS APRN.NEY Service: ? Author Type: Nurse Practitioner Type: Progress Notes Filed: 05/17/2025 08:46 Note Text: [facility] ESTABLISHED PATIENT OFFICE VISIT May 17, 2025 My final reccommendations will be communicated back to the requesting physician by way of shared medical record or US mail. Recording using Xinguodu software for draft documentation of the visit was discussed with the patient/authorized customer loyalty representative; all questions welcomed and answered. Patient/authorized customer loyalty representative agreed to proceed 1. Dyspnea and respiratory abnormalities (R06.00) 2. Hiatal hernia (K44.9) 3. Other idiopathic scoliosis, unspecified spinal region (M41.20) 4. Class 3 severe obesity with body mass index (BMI) of 45.0 to 49.9 in adult, unspecified obesity type, unspecified whether serious comorbidity present (HCC) (E66.833) Chronic dyspnea with slightly reduced diffusing capacity [...] fever, or chills. Electronically signed by Dayanna Farias APRN.[facility] May 17, 2025 8:46 AM INTERVAL HPI: [...] LMP 08/26/2006 (Approximate) SpO2 97% BMI 47.06 kg/m? General: Alert, oriented, no acute distress Respiratory: [...] Collected: 04/16/2025 7:25 AM (Final result) Narrative: [place] [facility] [address] 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 Start of test and EOFE criteria met. //FP IMPRESSION: Spirometry is normal. Electronically Signed On 04-16-2025 09:54:21 EDT by Melonie Paz MD ID: [id number] Name: YUE CAPUTO Race: White Ht: 61.02 in Wt: 260.59 lbs Age: 69 Gender: Female : 1955 Dx: Dyspnea and respiratory abnormalities_ Smoking Hx: Non-smoker Doctor: JULES TIM Test Date: 04/16/2025 Site: [facility] Tech: Leonard Cornejo PRE-BRONCH POST-BRONCH Mookie LLN Pred ULN %Pred ZScore Mookie %Pred %Chg ZScore SPIROMETRY FVC 2.06 1.71 2.42 3.15 84 -0.84 FEV1 1.62 1.33 1.91 2.45 84 -0.84 FEV1/FVC 0.79 0.66 0.79 0.90 98 -0.12 FEFMax 4.16 3.61 5.17 6.72 80 -1.06 FEF50 2.52 1.24 2.85 4.46 88 -0.34 FIF50 2.48 FEF50/FIF50 1.01 90-100 FIVC 1.98 ZUI18-93 1.53 0.80 1.74 3.07 87 -0.32 ExpiredTime 6.41 TimeToFEFMax 0.13 LESLEY 0.10 VolExtrap% 5 Comments: Current ATS/ERS acceptability and repeatability standards for spirometry met. Start of test and EOFE criteria met. //FP Latest Ref Rng AND Units 04/16/2025 05/17/2025 Spirometry Data FVC PRE (L) L 2.06 FEV1 PRE (L) L 1.62 FEV1/FVC PRE (%) % 79 MOE31-57% PRE (L/S) L/S 1.53 PEF PRE (L/S) [...] or any previous visit (from the past 25462 hours). Dayanna Farias APRN.CNP May 17, 2025 This note was partially generated using Landpoint voice recognition system, and there may be some incorrect words, spellings, and punctuation that were not noted in checking the note before saving. CNOV Observed: 05/17/2025 8:30 AM Status: COMPLETED Source: [facility] Office Visit (PULMLO) YUE CAPUTO ([id number]) 1955 F Date Time Provider Department 05/17/25 8:30 AM DAYANNA FARIAS During your visit today, we recorded the following information about you: Pulse Blood pressure Weight 71/minute 152/55 116.7 kg Dayanna Farias APRN.CNP 05/17/2025 8:38 AM Signed -Star Astepro - Azelastine 2 sprays each [...] with a tissue if any runs out. Dayanna Farias APRN.NEY 05/17/2025 8:46 AM Signed [facility] ESTABLISHED PATIENT OFFICE VISIT May 17, 2025 My final reccommendations will be communicated back to the requesting physician by way of shared medical record or US mail. Recording using Xinguodu software for draft documentation of the visit was discussed with the patient/authorized customer loyalty representative; all questions welcomed and answered. Patient/authorized customer loyalty representative agreed to proceed 1. Dyspnea and respiratory abnormalities (R06.00) 2. Hiatal hernia (K44.9) 3. Other idiopathic scoliosis, unspecified spinal region (M41.20) 4. Class 3 severe obesity with body mass index (BMI) of 45.0 to 49.9 in adult, unspecified obesity type, unspecified whether serious comorbidity present (HCC) (E66.813) Chronic dyspnea with slightly reduced diffusing capacity [...] fever, or chills. Electronically signed by Dayanna Farias APRN.NEY [facility] May 17, 2025 8:46 AM INTERVAL HPI: [...] LMP 08/26/2006 (Approximate) SpO2 97% BMI 47.06 kg/m? General: Alert, oriented, no acute distress Respiratory: [...] 04/16/2025 7:25 AM (Final result) Narrative: [place] [facility] [address] [place] [address] Test Date: 2025-04-16 Pat Name: YUE CAPUTO Department: Room: Gender: Female Retail Cashier Associate: : 1955 Requested By: Melonie Paz MD Order Number: [id number] Reading MD: Melonie Paz MD Interpretive Statements Current ATS/ERS acceptability and repeatability standards for spirometry met. Start of test and EOFE criteria met. //FP IMPRESSION: Spirometry is normal. Electronically Signed On 04-16-2025 09:54:21 EDT by Melonie Paz MD ID: [id number] Name: YUE CAPUTO Race: White Ht: 61.02 in Wt: 260.59 lbs Age: 69 Gender: Female : 1955 Dx: Dyspnea and respiratory abnormalities_ Smoking Hx: Non-smoker Doctor: JULES TIM Test Date: 04/16/2025 Site: [facility] Tech: Leonard Cornejo PRE-BRONCH POST-BRONCH Mookie LLN Pred ULN %Pred ZScore Mookie %Pred %Chg ZScore SPIROMETRY FVC 2.06 1.71 2.42 3.15 84 -0.84 FEV1 1.62 1.33 1.91 2.45 84 -0.84 FEV1/FVC 0.79 0.66 0.79 0.90 98 -0.12 FEFMax 4.16 3.61 5.17 6.72 80 -1.06 FEF50 2.52 1.24 2.85 4.46 88 -0.34 FIF50 2.48 FEF50/FIF50 1.01 90-100 FIVC 1.98 BFM70-87 1.53 0.80 1.74 3.07 87 -0.32 ExpiredTime 6.41 TimeToFEFMax 0.13 LESLEY 0.10 VolExtrap% 5 Comments: Current ATS/ERS acceptability and repeatability standards for spirometry met. Start of test and EOFE criteria met. //FP Latest Ref Rng AND Units 04/16/2025 05/17/2025 Spirometry Data FVC PRE (L) L 2.06 FEV1 PRE (L) L 1.62 FEV1/FVC PRE (%) % 79 GEY26-75% PRE (L/S) L/S 1.53 PEF PRE (L/S) [...] or any previous visit (from the past 51874 hours). Dayanna Farias APRN.COP EXAMINER May 17, 2025 This note was partially generated using Landpoint voice recognition system, and there may be some incorrect words, spellings, and punctuation that were not noted in checking the note before saving. Referring Provider: JULES TIM [[id number]] Allergies As of Date: 05/17/2025 Noted Allergy Reaction FENTANYL 04/01/2018 5 - Intolerance Comments: Drop in RR and drop in pulse ox to 70% ADHESIVE TAPE-SILICONES 07/29/2023 2 - Rash SULFA (SULFONAMIDE ANTIBIOTICS) 03/08/2007 16 - Unknown Date Reviewed: 05/17/2025 Reviewed by: Dayanna Farias APRN.COP EXAMINER - Fully Assessed Reason for Visit: Dyspnea [3833] Primary Visit Diagnosis:Dyspnea and respiratory abnormalities [R06.00, R06.89] Other Visit Diagnoses:Hiatal hernia [K44.9] Other idiopathic scoliosis, unspecified spinal region [M41.20] Class 3 severe obesity with body mass index (BMI) of 45.0 to 49.9 in adult, unspecified obesity type, unspecified whether serious comorbidity present (HCC) [E66.813, Z68.42] Prescriptions as of 05/17/2025 - letrozole (FEMARA) 2.5 mg tablet TAKE 1 TABLET BY MOUTH EVERY DAY - nystatin (MYCOSTATIN) cream Apply 1 application to affected area. - ribociclib (KISQALI) 400 mg/day (200 mg x 2) tab Take 2 tablets (400 mg) by mouth once daily for 21 days on, then 7 days off to complete a 28-day treatment cycle. Discard after 60 days from fill date. - cholecalciferol (VITAMIN D-3) 5,000 unit tab [...] once daily. Problem List As Of Date 05/17/2025 Noted Resolved SPINAL STENOSIS NOS [M48.00] Mixed [...] bilateral [Z96.653] 05/19/2018 AF (paroxysmal atrial fibrillation) ([facility]) [I48.*12/08/2021 03/14/2022 Right arm weakness [R29.898] 03/14/2022 Atrial tachycardia, paroxysmal (HCC) [I47.19] 03/14/2022 02/05/2023 Hypertensive urgency [I16.0] 03/14/2022 03/15/2022 COPD (chronic obstructive pulmonary disease) (H*03/14/2022 GERD (gastroesophageal reflux disease) [K21.9] 03/14/2022 Primary hypertension [I10] 01/31/2023 PETERSON (dyspnea on exertion) [R06.09] 01/31/2023 Edema [R60.9] 01/31/2023 Palpitations [R00.2] 02/05/2023 Invasive lobular carcinoma of breast in female *07/23/2023 RA (rheumatoid arthritis) ([facility]) [M06.9] 07/26/2023 Obesity, Class III, BMI >= 40 [E66.813] 07/29/2023 Stage 3a chronic kidney disease (HCC) [N18.31] 12/24/2023 Multiple thyroid nodules [E04.2] 05/18/2024 Pulmonary embolism (HCC) [I26.99] 11/05/2023 Status post cataract surgery, left [Z98.42] 06/09/2024 Combined forms of age-related cataract of right*06/09/2024 Status post cataract surgery, right [Z98.41] 06/18/2024 Osteopenia [M85.80] 04/13/2025 Other instructions from your clinician: -Star Astepro - Azelastine 2 sprays each [...] with a tissue if any runs out. Level of Service: OFFICE/OUTPATIENT ESTABLISHED MOD MDM 30 MIN [79958] Additional E/M codes: VISIT CPLX INHERENT EANDM ASSOC WITH MED * Encounter Status:Closed by DAYANNA FARIAS on 05/17/25 LUNG VOLUMES Observed: 05/17/2025 7:41 AM Status: F Source: [facility] [address] [place] [address] Test Date: 2025-05-17 Pat Name: YUE CAPUTO Department: Room: Gender: Female Retail Cashier Associate: : 1955 Requested By: Order Number: [id number] Reading MD: Arpita Rodriguez MD Interpretive Statements [...] 10:16:17 EDT by Arpita Rodriguez MD ID: [id number] Name: YUE CAPUTO Race: White Ht: 61.02 in Wt: 257.28 lbs Age: 69 Gender: Female : 1955 Dx: Dyspnea and respiratory abnormalities_ Smoking Hx: Non-smoker Doctor: JULES TIM Test Date: 05/17/2025 Site: [facility] Tech: Faviola Kent PRE-BRONCH POST-BRONCH Mookie LLN [...] DLCO met with 2 acceptable maneuvers. //AP VC BOX (L) : 1.74 L SVC_PRED (L) : 2.42 L/S SVC_LLN (L) : 1.71 L/S SVC_ULN (L/S) : 3.15 L/S IC BOX (L) : 1.58 L IC_PRED (L) : 1.61 L/S ERV BOX (L) : 0.16 L ERV_PREDICTED (L) : 0.81 L/S DLCO (ML/MIN/MMHG) : 12.26 ml/min/mmHg DLCO_PRED (ML/MIN/MMHG) : 17.54 ml/min/mmHg DLCO_LLN(ML/MIN/MMHG) : 13.19 ml/min/mmHg DLCO_ULN (ML/MIN/MMHG) : 22.90 ml/min/mmHg FRC GAS (L) : 1.38 L RV_PLETH_PRED (L) : 1.76 L RV GAS (L) : 1.22 L RV_N2_PRED (L) : 1.76 L TLC_PLETH_PRED (L) : 4.48 L TLC GAS (L) : 2.96 L TLC_N2_PRED (L) : 4.48 L RV_TLC_PLETH_PRED (%) : 39 % RV/TLC GAS (%) : 41 % RV_TLC_N2_PRED (%) : 39 L VA (L) : 2.93 L VA_PRD (L) : 4.10 L DLCO/VA (ML/MIN/MMHG/L) : 0.04 ml/min/mmHg/L DLCO_VA_PRED (L) : 0.04 ml/min/mmHg/L DLCOCOR (ML/MIN/MMHG) : 12.11 ml/min/mmHg DLCOCOR_PRED (ML/MIN/MMHG) : 17.54 ml/min/mmHg DLCO/VACOR (ML/MIN/MMHG/L) : 0.04 ml/min/mmHg/L LUNG DIFFUSION CAPACITY (DLCO) Observed: 05/17/2025 7:41 AM Status: F Source: [place] [address] Test Date: 2025-05-17 Pat Name: YUE CAPUTO Department: Room: Gender: Female Retail Cashier Associate: : 1955 Requested By: Order Number: [id number] Reading MD: Arpita Rodriguez MD Interpretive Statements [...] 10:16:17 EDT by Arpita Rodriguez MD ID: [id number] Name: ORALIANIMISHAYUE CUTLER Race: White Ht: 61.02 in Wt: 257.28 lbs Age: 69 Gender: Female : 1955 Dx: Dyspnea and respiratory abnormalities_ Smoking Hx: Non-smoker Doctor: JULES TIM Test Date: 05/17/2025 Site: [facility] Tech: Faviola Kent PRE-BRONCH POST-BRONCH Mookie LLN [...] DLCO met with 2 acceptable maneuvers. //AP PROGRESS Observed: 05/10/2025 12:36 PM Status: COMPLETED Source: [facility] ID: [id number] Author: SUZANNE GONGORA RPh Service: ? Author Type: ? Type: Progress Notes Filed: 05/12/2025 11:21 Note Text: [facility] Refill Assessment Medication(s): Kisqali No new clinical information to review since last SPP refill encounter. Next OV scheduled 07/14. Kisqali Cycles (21 days on / 7 days off): C1D1 - 1 C2D1 - 2 C3D1 - 3 C4D1 - 4 C5D1 - 5 C6D1 - 6 C7D1 - 6 C8D1 - 7/28/25 C9D1 - 8 C10D1- 9 C11D1- 06/14/25 ALLERGIES Allergen Reactions Fentanyl Intolerance Drop in [...] reviewed prior to dispensing the medication. Suzanne Gongora [facility] PharmD, [facility] Clinical Pharmacist, Oncology [facility] P: , F: Pool: P [facility] Pool #: [id number] Retail Cashier Associate Assessment Patient confirmed: Yes Med/dose confirmed: Yes Supplies needed: No supplies needed Missed doses: No Estimated days supply on hand: 0 Next cycle/dose due: 05/17/25 Copay amount: 0 Delivery method: FedEx Signature required: Waived on patient request Delivery Address Options from [facility]: [facility] Home Delivery Address Calculated: [address] [place] [id number] Delivery date: 05/14/25 Questions or concerns for the pharmacist?: No Did you have any side effects believed to be related to this medication, that resulted in hospitalization?: No Current Outpatient Medications on File Prior to Visit Medication Sig letrozole (FEMARA) 2.5 mg tablet TAKE 1 TABLET BY MOUTH EVERY DAY nystatin (MYCOSTATIN) cream Apply 1 application to affected area. ribociclib (KISQALI) 400 mg/day (200 mg x 2) tab Take 2 tablets (400 mg) by mouth once daily for 21 days on, then 7 days off to complete a 28-day treatment cycle. Discard after 60 days from fill date. cholecalciferol (VITAMIN D-3) 5,000 unit tab Take [...] facility-administered medications on file prior to visit. [facility] CLINICAL ASSESSMENT - HEMATOLOGY ONCOLOGY [...] 80%, OK 5% and HER2/akash negative, IHC 0 Previous [...] Est. Estimated Treatment Duration: 3 years Shanel FRITZ Observed: 04/26/2025 12:00 AM Status: COMPLETED Source: [facility] Telephone ([employer]) YUE CAPUTO ([id number]) 1955 F Date Time Provider Department 04/26/25 [facility] During your visit today, we recorded the [...] bilateral [Z96.653] 05/19/2018 AF (paroxysmal atrial fibrillation) ([facility]) [I48.*12/08/2021 03/14/2022 Right arm weakness [R29.898] 03/14/2022 Atrial tachycardia, paroxysmal ([facility]) [I47.19] 03/14/2022 02/05/2023 Hypertensive urgency [I16.0] 03/14/2022 [...] Encounter Status:Closed by ROSALIE LOPEZ on 04/26/25 HISTORY PHYSICAL Observed: 04/16/2025 8:00 AM Status: COMPLETED Source: [facility] HNO ID: [id number] Author: JULES TIM MD Service: ? Author Type: Physician Type: H&P Filed: 04/16/2025 08:19 Note Text: . [facility] Note Ms. Caputo is a 69 year old female who presents to the [facility]. Consultation requested by Dr. Gómez Baker for [...] eval of difficulty breathing . Recording using Xinguodu software for draft documentation of the visit was discussed with the patient/authorized customer loyalty representative; all questions welcomed and answered. Patient/authorized customer loyalty representative agreed to proceed Yue reports a [...] (118.2kg) SpO2 98% LMP 08/26/2006 BMI 47.65 kg/(m2). GEN: Alert, comfortable, sitting up in chair, no distress CV: RRR PULM: CTAB, no wheezing or crackles Labs / Imaging / Diagnostic Studies: All radiography listed below personally reviewed by me Data Reviewed from [facility] (in addition to that noted in HPI, [...] year old female who presents to the [facility] for evaluation of dyspnea. 1. Dyspnea and [...] due to hip pathology. - Follow-up with HEART COORDINATOR after completion of full PFTs to review results and reassess. - Will communicate findings and assessment to Dr. Baker. 4. Class 3 severe obesity with body mass index (BMI) of 45.0 to 49.9 in adult, unspecified obesity type, unspecified whether serious comorbidity present (HCC) (E66.553) Obesity is a significant barrier to hip [...] which included preparing to see the patient, iufm-xa-uaxc patient care, completing clinical documentation, obtaining and/or reviewing separately obtained history, performing a medically appropriate examination, counseling and educating the patient/family/caregiver, and ordering medications, tests, or procedures. Jules Tim MD Pulmonary Critical Care Staff [1] Social History Tobacco Use Smoking status: Never Smokeless tobacco: Never Vaping Use Vaping status: Never Used Substance Use Topics Alcohol use: Yes Comment: socially- couple times per year Drug use: Never CNOV Observed: 04/16/2025 8:00 AM Status: COMPLETED Source: [facility] Office Visit (PULMLO) PATITOYUE Andres ([id number]) 1955 F Date Time Provider Department 04/16/25 8:00 AM JULES TIM [place] During your visit today, we recorded the following information about you: Pulse Blood pressure Weight Height 81/minute 149/63 118.2 kg 1.575 m Jules Tim MD 04/16/2025 8:19 AM Signed . [facility] Note Ms. Caputo is a 69 year old female who presents to the [facility]. Consultation requested by Dr. Gómez Baker for [...] eval of difficulty breathing . Recording using Xinguodu software for draft documentation of the visit was discussed with the patient/authorized customer loyalty representative; all questions welcomed and answered. Patient/authorized customer loyalty representative agreed to proceed Yue reports a [...] (118.2kg) SpO2 98% LMP 08/26/2006 BMI 47.65 kg/(m2). GEN: Alert, comfortable, sitting up in chair, no distress CV: RRR PULM: CTAB, no wheezing or crackles Labs / Imaging / Diagnostic Studies: All radiography listed below personally reviewed by me Data Reviewed from [facility] (in addition to that noted in HPI, [...] year old female who presents to the [facility] for evaluation of dyspnea. 1. Dyspnea and [...] due to hip pathology. - Follow-up with HEART COORDINATOR after completion of full PFTs to review [...] which included preparing to see the patient, olir-mq-isii patient care, completing clinical documentation, obtaining and/or reviewing separately obtained history, performing a medically appropriate examination, counseling and educating the patient/family/caregiver, and ordering medications, tests, or procedures. Jules Tim MD Pulmonary Critical Care Staff [1] Social History Tobacco Use Smoking status: Never Smokeless tobacco: Never Vaping Use Vaping status: Never Used Substance Use Topics Alcohol use: Yes Comment: socially- couple times per year Drug use: Never Jules Tim MD 04/16/2025 8:11 AM Addendum Today we discussed your breathing and your breathing test today, we will check a couple more in depth breathing tests and have you come back in 1 month. Referring Provider: GÓMEZ BAKER [[id number]] Allergies As of Date: 04/16/2025 Noted Allergy Reaction FENTANYL 04/01/2018 5 - Intolerance Comments: Drop in RR and drop in pulse ox to 70% ADHESIVE TAPE-SILICONES 07/29/2023 2 - Rash SULFA (SULFONAMIDE ANTIBIOTICS) 03/08/2007 16 - Unknown Date Reviewed: 04/16/2025 Reviewed by: Sol Villafana MA - Fully Assessed Reason for Visit: Difficulty Breathing [206] Primary Visit Diagnosis:Dyspnea and respiratory abnormalities [R06.00, R06.89] Other Visit Diagnoses:Hiatal hernia [K44.9] Other idiopathic scoliosis, unspecified spinal region [M41.20] Class 3 severe obesity with body mass index (BMI) of 45.0 to 49.9 in adult, unspecified obesity type, unspecified whether serious comorbidity present (HCC) [E66.813, Z68.42] Order(s):LUNG VOLUMES [3423219] Order #: [id number]: 1 FUTURE LUNG DIFFUSION CAPACITY (DLCO) [[id number]] Order #: [id number]: 1 FUTURE Prescriptions as of 04/16/2025 - cefdinir (OMNICEF) 300 mg capsule Take 300 mg by mouth. - nystatin (MYCOSTATIN) cream Apply 1 application [...] once daily. Problem List As Of Date 04/16/2025 Noted Resolved SPINAL STENOSIS NOS [M48.00] Mixed [...] surgery, right [Z98.41] 06/18/2024 Osteopenia [M85.80] 04/13/2025 Other instructions from your clinician: Today we discussed your breathing and your breathing test today, we will check a couple more in depth breathing tests and have you come back in 1 month. Disposition: Return in about 1 month (around 05/17/2025). Follow-up and Disposition History for Encounter Date Provider Department Center 04/16/2025 [id number] TIMDILLON [place] [facility] Encounter Status:Closed by JULES TIM on 04/16/25 SPIROMETRY WITH DILATOR IF OBSTRUCTED Observed: 04/16/2025 7:25 AM Status: F Source: [facility] [address] [place] [address] Test Date: 2025-04-16 Pat Name: YUE CAPUTO Department: Room: Gender: Female Retail Cashier Associate: : 1955 Requested By: Melonie Paz MD Order Number: [id number] Reading MD: Melonie Paz MD Interpretive Statements Current ATS/ERS acceptability and repeatability standards for spirometry met. Start of test and EOFE criteria met. //FP IMPRESSION: Spirometry is normal. Electronically Signed On 04-16-2025 09:54:21 EDT by Melonie Paz MD ID: [id number] Name: YUE CAPUTO Race: White Ht: 61.02 in Wt: 260.59 lbs Age: 69 Gender: Female : 1955 Dx: Dyspnea and respiratory abnormalities_ Smoking Hx: Non-smoker Doctor: JULES TIM Test Date: 04/16/2025 Site: [facility] Tech: Leonard Cornejo PRE-BRONCH POST-BRONCH Mookie LLN Pred ULN %Pred ZScore Mookie %Pred %Chg ZScore SPIROMETRY FVC 2.06 1.71 2.42 3.15 84 -0.84 FEV1 1.62 1.33 1.91 2.45 84 -0.84 FEV1/FVC 0.79 0.66 0.79 0.90 98 -0.12 FEFMax 4.16 3.61 5.17 6.72 80 -1.06 FEF50 2.52 1.24 2.85 4.46 88 -0.34 FIF50 2.48 FEF50/FIF50 1.01 90-100 FIVC 1.98 EXS53-40 1.53 0.80 1.74 3.07 87 -0.32 ExpiredTime 6.41 TimeToFEFMax 0.13 LESLEY 0.10 VolExtrap% 5 Comments: Current ATS/ERS acceptability and repeatability standards for spirometry met. Start of test and EOFE criteria met. //FP FVC_PRE (L) : 2.06 L FVC_PRED (L) : 2.42 L FVC_LLN (L) : 1.71 L FVC_ULN (L) : 3.15 L FEV1_PRE (L) : 1.62 L FEV1_PRED (L) : 1.91 L FEV1_LLN (L) : 1.33 L FEV1_ULN (L) : 2.45 L FEV1/FVC_PRE (%) : 79 % FEV1/FVC_PRED (%) : 79 % FEV1/FVC_LLN (%) : 66 % BDQ88_FIN (L/S) : 4.14 L/S HIO46_WXW (L/S) : 0.45 L/S EAA24_CFHT (L/S) : 0.41 L/S AMK24_EXQ (L/S) : 0.15 L/S HKI19_LMD (L/S) : 1.09 L/S FPX55-41%_PRE (L/S) : 1.53 L/S CCD91-88%_PRED (L/S) : 1.74 L/S QWQ02-56%_LLN (L/S) : 0.80 L/S PEF_PRE (L/S) : 4.16 L/S PEFMAX_LLN (L/S) : 3.61 L/S PEFMAX_ULN (L/S) : 6.72 L/S FET_PRE (S) : 6.41 S PROGRESS Observed: 04/13/2025 2:41 PM Status: COMPLETED Source: [facility] HNO ID: [id number] Author: MARIA A GARCIA MD Service: ? Author Type: Physician Type: Progress Notes Filed: 04/13/2025 15:03 Note Text: PATIENT NAME: Yue Fentontrevonlucie CLINIC NO.: [id number] ATTENDING PHYSICIAN: Maria A Garcia MD DATE OF SERVICE: April 13, 2025 Some of the elements of this note have been copied from my previous progress note dated 12/30/2024. All the information has been reviewed carefully. Dear Dr. Mendoza Yang here is an update on a follow up visit on female Yue Caputo at the clinic April 13, 2025 [...] of arthralgia from the Arimidex. HPI: Yue Caputo is a 68 year old year [...] elected to transfer her care to the [facility] and underwent a L breast mastectomy [...] Range Status 03/30/2025 4.9 % Final Abs [place] Date Value Ref Range Status 03/30/2025 0.18 [...] Examined (sentinel and non-sentinel) 4 Number of [place] Nodes Examined 4 pTNM CLASSIFICATION (AJCC 8th Edition) Reporting of pT, pN, and (when applicable) pM categories is based on information available to the pathologist at the time the report is issued. As per the AJCC (Chapter 1, 8th Ed.) it is the managing physician?s responsibility to establish the final pathologic stage [...] and US: Negative. Assessment and Plan: Yue Caputo is a 67 year old year [...] Verzenio was started later due to patient administrative library assistant program in late April 2024 at [...] do not hesitate to contact me at [phone]. Maria A Garcia MD Hematology/Medical Oncology [facility] spent a total of 30 minutes on the date of the service which included preparing to see the patient, uztw-cr-dehg patient care, completing clinical documentation, obtaining and/or reviewing separately obtained history, performing a medically appropriate examination, and counseling and educating the patient/family/caregiver. CC: Flip Jenkins MD CNOVSP Observed: 04/13/2025 2:30 PM Status: COMPLETED Source: [facility] Visit (SP) Office (HEMAVN) YUE CAPUTO ([id number]) 1955 F Date Time Provider Department 04/13/25 2:30 PM MARIA A GARCIA During your visit today, we recorded the following information about you: Temperature Pulse Respiration Blood pressure 97.6 degrees 72/minute 18/minute 151/53 Weight Height 120 kg 1.575 m Maria A Garcia MD 04/13/2025 3:03 PM Signed PATIENT NAME: Yue Campos Patito CLINIC NO.: [id number] ATTENDING PHYSICIAN: Maria A Garcia MD DATE OF SERVICE: April 13, 2025 Some of the elements of this note have been copied from my previous progress note dated 12/30/2024. All the information has been reviewed carefully. Dear Dr. Mendoza Yang here is an update on a follow up visit on female Yue Caputo at the clinic April 13, 2025 [...] of arthralgia from the Arimidex. HPI: Yue Caputo is a 68 year old year [...] elected to transfer her care to the [facility] and underwent a L breast mastectomy [...] Range Status 03/30/2025 4.9 % Final Abs [place] Date Value Ref Range Status 03/30/2025 0.18 [...] Histologic Type Invasive lobular carcinoma Histologic Grade ([place] Histologic Score) Glandular (Acinar) / Tubular Differentiation [...] Examined (sentinel and non-sentinel) 4 Number of [place] Nodes Examined 4 pTNM CLASSIFICATION (AJCC 8th Edition) Reporting of pT, pN, and (when applicable) pM categories is based on information available to the pathologist at the time the report is issued. As per the AJCC (Chapter 1, 8th Ed.) it is the managing physician?s responsibility to establish the final pathologic stage [...] and US: Negative. Assessment and Plan: Yue Caputo is a 67 year old year [...] Verzenio was started later due to patient administrative library assistant program in late April 2024 at [...] do not hesitate to contact me at [phone]. Maria A Garcia MD Hematology/Medical Oncology [facility] I spent a total of 30 minutes on the date of the service which included preparing to see the patient, clnt-me-dcor patient care, completing clinical documentation, obtaining and/or reviewing separately obtained history, performing a medically appropriate examination, and counseling and educating the patient/family/caregiver. CC: GregoryFlip loera MD Allen, Crystal, LPN 04/13/2025 3:20 PM Addendum Schedule labs prior to Virtual visit with DR Garcia 2 months Schedule proliainjection in [place] next day Allergies As of Date: 04/13/2025 Noted Allergy Reaction FENTANYL 04/01/2018 5 - Intolerance Comments: Drop in RR and drop in pulse ox to 70% ADHESIVE TAPE-SILICONES 07/29/2023 2 - Rash SULFA (SULFONAMIDE ANTIBIOTICS) 03/08/2007 16 - Unknown Date Reviewed: 04/13/2025 Reviewed by: Divya Fierro MA - Fully Assessed Reason for Visit: Established Patient [175] Primary Visit Diagnosis:Invasive lobular carcinoma of breast in female (HCC) [C50.919] Other Visit Diagnoses:Bilateral leg edema [R60.0] Osteopenia of multiple sites [M85.89] Order(s):COMPRESSION STOCKINGS [6490750] Order #: [id number] CONSULT TO LYMPHEDEMA THERAPY [9002085] Order #: [id number]: 1 FUTURE COMPLETE BLOOD COUNT AND DIFFERENTIAL [SQCBCDIF] Order #: [id number] FUTURE COMPREHENSIVE METABOLIC PANEL [SQCMP] Order #: [id number] FUTURE Disposition: Return in about 3 months (around 07/14/2025). Follow-up and Disposition History for Encounter Date Provider Department Center 04/13/2025 [id number] A GARCIA REJ Prescriptions as of 04/13/2025 - cefdinir (OMNICEF) 300 mg capsule Take 300 mg by mouth. - nystatin (MYCOSTATIN) cream Apply 1 application [...] once daily. Problem List As Of Date 04/13/2025 Noted Resolved SPINAL STENOSIS NOS [M48.00] Mixed [...] surgery, right [Z98.41] 06/18/2024 Osteopenia [M85.80] 04/13/2025 Other instructions from your clinician: Schedule labs prior to Virtual visit with DR Garcia 2 months Schedule proliainjection in [place] next day Encounter Status:Closed by MARIA A GARCIA on 04/13/25 PROGRESS Observed: 04/12/2025 9:26 AM Status: COMPLETED Source: [facility] HNO ID: [id number] Author: SUZANNE GONGORA [facility] Service: ? Author Type: ? Type: Progress Notes Filed: 04/14/2025 08:32 Note Text: [facility] Refill Assessment Medication(s): Kisqali Reviewed [...] days off): C1D1 - 1 C2D1 - 2/06/19 C3D1 - 3 C4D1 - 4 C5D1 - 5 C6D1 - 6/10/20 C7D1 - 6 C8D1 - 7 C9D1 [...] reviewed prior to dispensing the medication. Suzanne Gongora, [facility] PharmD, BCPS Clinical Pharmacist, Oncology [facility] P: , F: Pool: P [facility] Pool #: [id number] Retail Cashier Associate Assessment Patient confirmed: Yes Med/dose confirmed: Yes Supplies needed: No supplies needed Missed doses: No Estimated days supply on hand: 0 Next cycle/dose due: 04/19/25 Copay amount: 0 Delivery method: FedEx Signature required: Waived on patient request Delivery address: [address] [place] [address] Delivery date: 04/15/25 Questions or concerns for [...] facility-administered medications on file prior to visit. [facility] CLINICAL ASSESSMENT - HEMATOLOGY ONCOLOGY [...] 80%, OK 5% and HER2/akash negative, IHC 0 Previous [...] Est. Estimated Treatment Duration: 3 years Citlali Caden PROGRESS Observed: 04/05/2025 10:06 AM Status: COMPLETED Source: [facility] HNO ID: [id number] Author: HALINA VAUGHAN RN Service: ? Author Type: Registered Nurse Type: Progress Notes Filed: 04/05/2025 10:07 Note Text: Pt came in for Activase, however port gave great blood return immediately and flushed with ease. No need for activase at this time. Halina Vaughan RN CNOVSP Observed: 04/01/2025 9:45 AM Status: COMPLETED Source: [facility] Visit (SP) Office (HEMAVN) PATITOYUE Andres ([id number]) 1955 F Date Time Provider Department 04/01/25 9:45 AM MARIA A GARCIA During your visit today, we recorded the following information about you: Temperature Pulse Blood pressure Weight 98.1 degrees 68/minute 142/51 120.5 kg Allergies As of Date: 04/01/2025 Noted Allergy Reaction FENTANYL 04/01/2018 5 - Intolerance Comments: Drop in RR and drop in pulse ox to 70% ADHESIVE TAPE-SILICONES 07/29/2023 2 - Rash SULFA (SULFONAMIDE ANTIBIOTICS) 03/08/2007 16 - Unknown Date Reviewed: 04/01/2025 Reviewed by: Michelle Norton MA - Fully Assessed Reason for Visit: Established Patient [175] Primary Visit Diagnosis:Invasive lobular carcinoma of breast in female (HCC) [C50.919] Prescriptions as of 04/02/2025 - ribociclib (KISQALI) 400 mg/day (200 mg [...] once daily. Problem List As Of Date 04/01/2025 Noted Resolved SPINAL STENOSIS NOS [M48.00] Mixed [...] Status post cataract surgery, right [Z98.41] 06/18/2024 Encounter Status:Closed by MARIA A GARCIA on 04/02/25 US KIDNEY/BLADDER Observed: 04/01/2025 9:29 AM Status: F Source: [facility] * * *Final Report* * * DATE OF EXAM: Apr 01 2025 9:29AM U 1055 - US KIDNEY/BLADDER / PROCEDURE REASON: [...] Bladder: Normal sonographic appearance. IMPRESSION: No hydronephrosis. Vascular Neurologist: BEA Transcribe Date/Time: Apr 04 2025 12:16P Dictated by : LINDA MARCIAL MD This examination was interpreted and the report reviewed and electronically signed by: LINDA MARCIAL MD on Apr 04 2025 12:18PM EST [id number] PROGRESS Observed: 04/01/2025 8:45 AM Status: COMPLETED Source: [facility] HNO ID: [id number] Author: HANSA FRANZ RDMS, RVT Service: Radiology Author Type: Nursing Scheduler Type: Progress Notes Filed: 04/01/2025 09:24 Note Text: Radiology Service Progress Note PATIENT NAME: Yue Caputo DATE OF SERVICE: April 01, 2025 [...] PATIENT PRESENTS WITH AN IMPLANTABLE OR ATTACHED BASIN OPERATOR: No RADIOLOGY DEPARTMENT: Ultrasound PERIPHERAL IV DATA: Not applicable SIGNED BY: Hansa Franz RDMS, LUIS April 01, 2025 9:24 AM COMP METAB 2000 PNL SERPL Collected: 9:12 AM Status: F Source: [facility] Order Comment: Specimen Type : BLOOD SPECIMEN Ordering Facility: [facility] Address: [address] [place] [address] TYPE CODE TESTS RESULT OUT OF RANGE REFERENCE UNITS LAB 2885-2(LOINC) Prot SerPl-mCnc 6.9 6.3-8.0 g/dL LAB 1751-7(LOINC) Albumin SerPl-mCnc 4.0 3.9-4.9 g/dL LAB 36941-6(LOINC) Calcium SerPl-mCnc 9.5 8.5-10.2 mg/dL LAB 1975-2(LOINC) Bilirub SerPl-mCnc 0.6 0.2-1.3 mg/dL LAB 6768-6(LOINC) ALP SerPl-cCnc 105 34-123 U/L LAB 1920-8(LOINC) AST SerPl-cCnc 15 13-35 U/L LAB 1742-6(LOINC) ALT SerPl-cCnc 19 7-38 U/L LAB 2345-7(LOINC) Glucose SerPl-mCnc 140 High 74-99 mg/dL Result Comment: The [place] Diabetes Association (ADA) provides [...] [place] Diabetes Association. Diabetes Care. 2016.39(Suppl 1). LAB 3094-0(LOINC) BUN SerPl-mCnc 18 7-21 mg/dL LAB 2160-0(LOINC) Creat SerPl-mCnc 1.48 High 0.58-0.96 mg/dL LAB 2951-2(LOINC) Sodium SerPl-sCnc 137 136-144 mmol/L LAB 2823-3(LOINC) Potassium SerPl-sCnc 4.5 3.7-5.1 mmol/L LAB 2075-0(LOINC) Chloride SerPl-sCnc 101 98-107 mmol/L LAB 2027-9(LOINC) CO2 SerPl-sCnc 25 22-30 mmol/L LAB 12898-7(LOINC) Anion Gap SerPl-sCnc 11 8-15 mmol/L LAB 72535-9(LOINC) eGFRcr SerPlBld CKD-EPI 2020 38 Low >=60 mL/min/1. 73m??? Result Comment: Estimated Gl omerular Filtration Rate (eGFR) is calculated using the 2020 CKD-EPI creatinine equation. This equation utilizes serum creatinine, sex, and age as parameters. The creatinine assay has traceable calibration to isotope dilution-mass spectrometry. Refer to KDIGO guidelines for clinical interpretation. In patients with unstable renal function, e.g. those with acute kidney injury, the eGFR may not accurately reflect actual GFR. Performed By: #### 77785-6 # ### [facility] CLIA [id number] [address] [place] [id number] CBC W AUTO DIFF BLD Collected: 03/30/2025 9:[address] atus: F Source: [facility] Comment: Specimen Type : BLOOD SPECIMEN Ordering Facility: [facility] Address: [address] [id number] TYPE CODE TESTS RESULT OUT OF RANGE REFERENCE UNITS LAB 6690-2([facility]) WBC # Bld Auto 3.64 Low 3.70-11.00 k/uL LAB 789-8([facility]) RBC # Bld Auto 3.67 Low 3.90-5.20 m/ uL LAB 718-7([facility]) Hgb Bld-mCnc 12.8 11.5-15.5 g/dL LAB 4544-3([facility]) Hct VFr Bld Auto 38.1 36.0-46.0 % LAB 787-2([facility]) MCV RBC Auto 103.8 High 80.0-100.0 fL LAB 785-6([facility]) MCH RBC Qn Auto 34.9 High 26.0-34.0 p g LAB 786-4([facility]) MCHC RBC Auto-mCnc 33.6 30.5-36.0 g/dL LAB 09959-2([facility]) RDW RBC-Rto 14.6 11.5-15.0 % LAB 777-3([facility]) Platelet # Bld Auto 346 150-400 k/uL LAB 69144-6([facility]) PMV Bld Auto 9.0 9.0-12.7 fL LAB 770-8([facility]) Neutrophils/leuk NFr Bld Auto 71.1 % LAB 751-8([facility]) Neutrophils # Bld Auto 2.59 1.45-7.50 k/uL LAB 736-9([facility]) Lymphocytes/leuk NFr Bld Auto 21.2 % LAB 731-0([facility]) Lymphocytes # Bld Auto 0.77 Low 1.00-4.00 k/uL LAB 5905-5([facility]) Monocytes/leuk NFr Bld Auto 4.9 % LAB 742-7([facility]) Monocytes # Bld Auto 0.18 <0.87 k/uL LAB 713-8([facility]) Eosinophil/leuk NFr Bld Auto 1.4 % LAB 711-2([facility]) Eosinophil # Bld Auto 0.05 <0.46 k/uL LAB 706-2([facility]) Basophils/leuk NFr Bld Auto 1.1 % LAB 704-7(LOINC) Basophils # Bld Auto 0.04 <0.11 k/uL LAB 35731-0(LOINC) Imm Granulocytes/tanisha k NFr Bld Auto 0.3 % LAB 17877-2(LOINC) Imm Granulocytes # Bld Auto <0.03 <0.10 k/uL LAB 84303-8(LOINC) nRBC/100 WBC Bld-Rto 0.0 /100 WBC LAB 771-6([facility]) nRBC # Bld Auto <0.01 <0.01 k/u L LAB 22195-4([facility]) Differential method Bld Auto Performed By: #### 67780-0 # ### [facility] CLIA [id number] [address] [place] [address] CNPN Observed: 03/30/2025 12:00 AM Status: COMPLETED Source: [facility] Telephone (HEMTSA) YUE CAPUTO ([id number]) 1955 F Date Time Provider Department 03/30/25 PERLA LESLIE During your visit today, we recorded the following information about you: Perla Leslie RN 03/30/2025 11:56 AM Signed Pt in for port draw today at the [facility]. Unable to get blood return even with repositioning. Reviewed with patient need for activase and procedure. Pt agreeable to come next week to get activase. RADHA: Please place orders. Pt coming 04/05/25 to [place] office. Thanks. MALORIE Ch Kasra, MD 03/30/2025 10:56 PM Signed Israel Neumann Can pharmacy place orders. Perla Deluca RN 04/01/2025 4:34 PM Signed Sure thing! Thanks. PHARM: can you enter this for RADHA? Perla Leslie RN Allergies As of Date: 03/30/2025 Noted Allergy Reaction FENTANYL 04/01/2018 5 - Intolerance Comments: Drop in RR and drop in pulse ox to 70% ADHESIVE TAPE-SILICONES 07/29/2023 2 - Rash SULFA (SULFONAMIDE ANTIBIOTICS) 03/08/2007 16 - Unknown Date Reviewed: 03/19/2025 Reviewed by: Cesar Jones APRN.PHARMACY INNOVATION ASSISTANT - Fully Assessed Reason for Visit: Orders [681] Prescriptions as of 05/04/2025 - letrozole (FEMARA) 2.5 mg tablet TAKE 1 TABLET BY MOUTH EVERY DAY - nystatin (MYCOSTATIN) cream Apply 1 application to affected area. - ribociclib (KISQALI) 400 mg/day (200 mg x 2) tab Take 2 tablets (400 mg) by mouth once daily for 21 days on, then 7 days off to complete a 28-day treatment cycle. Discard after 60 days from fill date. - cholecalciferol (VITAMIN D-3) 5,000 unit tab [...] once daily. Problem List As Of Date 03/30/2025 Noted Resolved SPINAL STENOSIS NOS [M48.00] Mixed [...] Status post cataract surgery, right [Z98.41] 06/18/2024 Encounter Status:Closed by PERLA LESLIE on 05/04/25 CATRINA Observed: 03/26/2025 12:00 AM Status: COMPLETED Source: [facility] Telephone (HEMAVN) PATITOYUE ([id number]) 1955 F Date Time Provider Department 03/26/25 MARIA A GARCIA During your visit today, we recorded the following information about you: Janet Wong, RN 03/26/2025 1:41 PM Signed Adelaide from [facility] [place] calling Patient is there now for a fitting Will need permission to fit her today so she can go home with her items She came without a prescription Will also fax form to office now Please call Adelaide GONSALEZ so they can do the fitting now Adelaide can be reached at: [phone], ok to leave a message Nia Arias RN 03/26/2025 3:27 PM Signed Called and spoke with Haydee-herber to have fitting-was evaluated by plastic surgery 03/05/25. She will fax orders to Dr Garcia's office. Allergies As of Date: 03/26/2025 Noted Allergy Reaction FENTANYL 04/01/2018 5 - Intolerance Comments: Drop in RR and drop in pulse ox to 70% ADHESIVE TAPE-SILICONES 07/29/2023 2 - Rash SULFA (SULFONAMIDE ANTIBIOTICS) 03/08/2007 16 - Unknown Date Reviewed: 03/19/2025 Reviewed by: Cesar Jones APRN.PHARMACY INNOVATION ASSISTANT - Fully Assessed Reason for Visit: permision for fitting/DME [Other] Prescriptions as of 03/26/2025 - ribociclib (KISQALI) 400 mg/day (200 mg x 2) tab Take 2 tablets (400 mg) by mouth once daily for 21 days on, then 7 days off to complete a 28-day treatment cycle. Discard after 60 days from fill date. - letrozole (FEMARA) 2.5 mg tablet TAKE 1 TABLET BY MOUTH EVERY DAY - NAPROXEN ORAL Take by mouth two times a day. - cholecalciferol (VITAMIN D-3) 5,000 unit tab [...] mg by mouth two times a day. Problem List As Of Date 03/26/2025 Noted Resolved SPINAL STENOSIS NOS [M48.00] Mixed [...] Status post cataract surgery, right [Z98.41] 06/18/2024 Encounter Status:Closed by NIA ARIAS on 03/26/25 HISTORY PHYSICAL Observed: 03/19/2025 10:30 AM Status: COMPLETED Source: [facility] HNO ID: [id number] Author: CESAR JONES APRN.PHARMACY INNOVATION ASSISTANT Service: ? Author Type: Clinical Nurse Specialist Type: H&P Filed: 03/19/2025 10:55 Note Text: PREANESTHESIA CONSULT CLINIC TELEHEALTH VISIT Patient has been identified by name and date of : Yes This is a virtual visit using [employer] Zoom Video Visit. It require patient-provider interaction [...] visit. Either the patient or their legal customer loyalty representative has been informed of the risks and benefits of and alternatives to treatment through a remote evaluation and consents to proceed with the evaluation remotely. Scheduled Surgery: Diagnostic EGD with Dr. Rita Timmons Subjective CHIEF COMPLAINT: No chief complaint on file. Patient stated I have hiatal hernia and will have EGD to check status HPI: This is a 69 year old female who presents with stating she has hiatal hernia and has epigastric pain. On pain scale, 5/10 aching pain. SHe has difficulty breathing at times.Consulted Dr. Timmons After exam,Dx with Hiatal Hernia:Difficulty breathing . [...] Breast in Female (Hcc) Ra (Rheumatoid Arthritis) ([facility]) Obesity, Class III, BMI >= 40 Stage [...] 48.8 Neuro: No history of TIA's, stroke, PHARMACY INNOVATION ASSISTANT tumor, impaired sensorium, hemiplegia, paraplegia or quadraplegia. No neurological symptoms or problems. Respiratory: COPD does not use Inhalers Cardiovascular: Positive for: DVT/PE, HLD, Hypertension, H/O A-Fib in the past H/O Palpitations in the past PE in 2023 GI: Positive for GERD takes Nexium H/O Diverticulitis : No history of dysuria, frequency or incontinence,, stones or chronic kidney disease, CKD COLD MILL INSPECTOR: Negative for abnormal vaginal bleeding, abnormal vaginal [...] 267 lb (121.1kg) LMP 08/26/2006 BMI 48.82 kg/(m2). Patient unable to assess pulse with examiner [...] Most recent labs Most recent EKG: in [facility] 12/24/24 Procedure Date : Dec 24 2024 09:05:05 Edit Date : Dec 24 2024 09:10:11 Diagnosis: SUSPECT ARM LEAD REVERSAL, PLEASE REPEAT SINUS RHYTHM WITH 1ST DEGREE AV BLOCK LATERAL MYOCARDIAL INFARCTION , AGE UNDETERMINED ABNORMAL ECG Impression/Recommendations ASSESSMENT: COPD (chronic obstructive pulmonary disease) ([facility]) Assessment: states was told by learning and development director that she had CHEMISTRY LABORATORY TECHNICIAN but another told her she did not have it Does not use use inhaler Currently stable Disorder of mitral valve Assessment: trace mitral regurgitation per 08/2023 ECHO (+) systolic cardiac murmur GERD (gastroesophageal reflux disease) Assessment: trace mitral regurgitation per 08/2023 ECHO (+) systolic cardiac murmur Mixed hyperlipidemia Assessment: takes Lipitor,stable Morbid obesity ([facility]) Assessment: BMI 48.8 Palpitations Assessment: evaluated for possible atrial fibrillation on metoprolol Follows with Dr. John Dc ( Cardiology,) currently stable Primary hypertension Assessment: takes Metoprolol,Losartan last BP in [facility] of 02/23/25 156/70 Pulmonary embolism ([facility]) Assessment: PE 11/05/2023 was on Eliquis for 3 months RA (rheumatoid arthritis) ([facility]) Assessment: Follows with Dr. Celia Lewis Stage 3a chronic kidney disease ([facility]) Assessment: BUN Date Value Ref Range Status [...] included preparing to see the patient and auro-pd-awnw patient care This is a virtual visit. It required patient-provider interaction for the medical decision making as documented above. SIGNATURE: Cesar Jones APRN.CNS PATIENT NAME: Yue Caputo DATE: 03/19/25 TIME: 10:42 AM PAGER/CONTACT #: [phone] Observed: 03/15/2025 11:23 AM Status: COMPLETED Source: [facility] HNO ID: [id number] Author: CHIDI HORTA RPh Service: ? Author Type: ? Type: Progress Notes Filed: 03/18/2025 08:53 Note Text: [facility] Refill Assessment Medication(s): Kisqali Reviewed chart notes since last CCSP encounter. Pt had an inclusion cyst excised on 02/23. No new concerns or ADRS reported concerning kisqali treatment. No changes to therapy noted at this time. Refill appropriate. Labs reviewed from 02/19-02/23: no dose limiting toxicities noted Kisqali Cycles (21 days on / 7 days off): C1D1 - 09/07/24 C2D1 - 10/05/24 C3D1 - 11/02/24 C4D1 - 11/30/24 C5D1 - 12/28/24 C6D1 - 6 C7D1 - 02/22/25 C8D1 - 03/22/25 C9D1 - 04/19/25 Next clinic visit scheduled 04/01/25. ALLERGIES Allergen Reactions Fentanyl Intolerance Drop in [...] been reviewed prior to dispensing the medication. Chidi Horta, HueyD Clinical Pharmacist, Oncology [facility] P: , F: Pool: P CC [facility] Pool #: [id number] Retail Cashier Associate Assessment Patient confirmed: Yes Med/dose confirmed: Yes Supplies needed: No supplies needed Missed doses: No Estimated days supply on hand: 0 Next cycle/dose due: 03/22/25 Copay amount: 0 Delivery method: FedEx Signature required: Waived on patient request Delivery address: [address] [place] [address] Delivery date: 03/19/25 Questions or concerns for [...] facility-administered medications on file prior to visit. [facility] CLINICAL ASSESSMENT - HEMATOLOGY ONCOLOGY V6: Assessment to use: Refill Date of influenza vaccination reminder: 08/28/2024 Date of most recent vaccination assessment: 08/28/2024 Treatment Plan Information: Diagnosis: T3, N3, M0, invasive lobular carcinoma, grade 2, ER 80%, OK 5% and HER2/akash negative, IHC 0 Previous [...] Estimated Treatment Duration: 3 years Shanel Oropeza PROGRESS Observed: 03/05/2025 11:34 AM Status: COMPLETED Source: [facility] HNO ID: [id number] Author: Andres MANN MD Service: ? Author Type: Physician Type: Progress Notes Filed: 03/05/2025 11:47 Note Text: Yue is here for f/u, path reviewed with her, suture line intact, sutures removed, reviewed postop wound hygiene; f/u with me as needed. (L72.0) Inclusion cyst (primary encounter diagnosis) Andres Mann MD CNOV Observed: 03/05/2025 11:30 AM Status: COMPLETED Source: [facility] Office Visit (PLASAM) YUE CAPUTO ([id number]) 1955 F Date Time Provider Department 03/05/25 11:30 AM Andres MANN During your visit today, we recorded the following information about you: Andres Mann MD 03/05/2025 11:47 AM Signed Yue is here for f/u, path reviewed with her, suture line intact, sutures removed, reviewed postop wound hygiene; f/u with me as needed. (L72.0) Inclusion cyst (primary encounter diagnosis) Andres Mann MD Referring Provider: SELF [200] Allergies As of Date: 03/05/2025 Noted Allergy Reaction FENTANYL 04/01/2018 5 - Intolerance Comments: Drop in RR and drop in pulse ox to 70% ADHESIVE TAPE-SILICONES 07/29/2023 2 - Rash SULFA (SULFONAMIDE ANTIBIOTICS) 03/08/2007 16 - Unknown Date Reviewed: 02/23/2025 Reviewed by: Kendal Kohler, MALORIE - Fully Assessed Primary Visit Diagnosis:Inclusion cyst [L72.0] Prescriptions as of 03/05/2025 - ribociclib (KISQALI) 400 mg/day (200 mg x 2) tab Take 2 tablets (400 mg) by mouth once daily for 21 days. Then take a 7-day rest period to complete a 28-day treatment cycle. Discard after 60 days from fill date. - letrozole (FEMARA) 2.5 mg tablet TAKE 1 TABLET BY MOUTH EVERY DAY - NAPROXEN ORAL Take by mouth two times a day. - cholecalciferol (VITAMIN D-3) 5,000 unit tab [...] mg by mouth two times a day. Problem List As Of Date 03/05/2025 Noted Resolved SPINAL STENOSIS NOS [M48.00] Mixed [...] bilateral [Z96.653] 05/19/2018 AF (paroxysmal atrial fibrillation) ([facility]) [I48.*12/08/2021 03/14/2022 Right arm weakness [R29.898] 03/14/2022 [...] Status post cataract surgery, right [Z98.41] 06/18/2024 Encounter Status:Closed by Andres MANN on 03/05/25 BI MAMMOGRAM SCREENING TOMOSYNTHESIS RIGHT Observed: 03/05/2025 8:55 AM Status: F Source: [facility] EPIC Order Comment: Mastectomy This is a summary report. Th e complete report is available in the patient's [...] IS VERY IMPORTANT TO YOUR HEALTH. THE [place] [employer] GUIDELINES RECOMMEND THAT WOMEN 40 YEARS OF AGE AND OLDER SHOULD HAVE A MAMMOGRAM EVERY YEAR. A REMINDER LETTER WILL BE SENT AT THE APPROPRIATE TIME. ELECTRONICALLY SIGNED BY: Sae Reyna Observed: 03/04/2025 12:00 AM Status: COMPLETED Source: [facility] Telephone (PLASAV) YUE CAPUTO ([id number]) 1955 F Date Time Provider Department 03/04/25 Andres MANN During your visit today, we recorded the following information about you: Brianna Velez 03/04/2025 8:38 AM Signed Yue is calling Andres Mann MD today to request to reschedule her post op appt for today. Please call patient to reschedule Patient has been identified by name and birthdate. Duration of symptoms: N/A Person calling: self Call patient at: on cell [phone] (home) [phone] (cell) Was an appointment scheduled: No Closing statement: Results or non-symptom based questions: Thank you for calling [facility], your call will be returned within the next business day. Eladio White, RN 03/04/2025 9:04 AM Signed Spoke to Yeu, appointment rescheduled for tomorrow Allergies As of Date: 03/04/2025 Noted Allergy Reaction FENTANYL 04/01/2018 5 - Intolerance Comments: Drop in RR and drop in pulse ox to 70% ADHESIVE TAPE-SILICONES 07/29/2023 2 - Rash SULFA (SULFONAMIDE ANTIBIOTICS) 03/08/2007 16 - Unknown Date Reviewed: 02/23/2025 Reviewed by: Kendal Kohler RN - Fully Assessed Reason for Visit: Reschedule Post-op [Other] Prescriptions as of 03/04/2025 - ribociclib (KISQALI) 400 mg/day (200 mg x 2) tab Take 2 tablets (400 mg) by mouth once daily for 21 days. Then take a 7-day rest period to complete a 28-day treatment cycle. Discard after 60 days from fill date. - letrozole (FEMARA) 2.5 mg tablet TAKE 1 TABLET BY MOUTH EVERY DAY - NAPROXEN ORAL Take by mouth two times a day. - cholecalciferol (VITAMIN D-3) 5,000 unit tab [...] mg by mouth two times a day. Problem List As Of Date 03/04/2025 Noted Resolved SPINAL STENOSIS NOS [M48.00] Mixed [...] disease) [K21.9] 03/14/2022 Primary hypertension [I10] 01/31/2023 EPTERSON (dyspnea on exertion) [R06.09] 01/31/2023 Edema [R60.9] [...] Status post cataract surgery, right [Z98.41] 06/18/2024 Encounter Status:Closed by ELADIO HAYES on 03/04/25 TISS PATH BX REPORT Collected: 02/24/20 10:06 AM Status: F Source: [facility] Order Comment: Specimen Type : TISSUE SPECIMEN Ordering Facility: [facility] Address: [address] [place] [address] TYPE CODE TESTS RESULT OUT OF RANGE REFERENCE UNITS PATHOLOGY [id number] CASE REPORT Result Comment: Surgical Pat hology Report Case: [id number] Authorizing Provider: Andres Mann MD Collected: 02/23/2025 10:06 AM Ordering Location: [facility] Surgery Received: 02/23/2025 10:10 AM Pathologist: Rosa Whyte MD Specimen: Cyst, Skin, Excision, cyst - left cheek PATHOLOGY [id number] FINAL DIAGNOSIS Result Comment: A. Skin, lef t cheek, excision: - Epidermal inclusion cyst. MP/kr 02/25/2025 at 2321 EDT PATHOLOGY [id number] GROSS DESCRIPTION Result Comment: A. Cyst, Ski n, Excision Received in formalin is an unoriented elliptical segment of skin and subcutaneous tissue measuring 2.1 x 2.0 x 1.5 cm. The skin surface is grossly unremarkable. The specimen does resemble a ruptured cyst. A customer loyalty representative section is submitted in one cassette. February 23, 2025 1:31 PM Gross examination performed at [facility], [address] [place] [address] PATHOLOGY CDX2 CLINICAL HISTORY Result Comment: Pre-op diagn osis: Inclusion cyst [L72.0] PATHOLOGY FPLAB FINAL PERFORMING LAB Result Comment: Diagnostic i nterpretation performed at: [facility], [address] [place] [address], [facility] [place] [address] CLIA# [id number] Gang Sawyer: Amor Eisenberg MD PATHOLOGY [id number] AP DISCLAIMER Result Comment: Laboratory D eveloped Test (LDT) Disclaimer: Performance characteristics of immunohistochemical, immunofluorescent, and chromogenic in-situ hybridization tests have been determined by the performing laboratory within [facility]'s Lopez Dharmesh [facility] Pathology and Laboratory Medicine Department ([facility], [facility], [facility], [facility], [facility], [facility], or [facility]) in a manner consistent with CLIA requirements. One or more of these tests may not have been cleared or approved by the FDA. [facility] is regulated under CLIA as qualified to perform high-complexity testing. These tests are used for clinical purposes. These should not be regarded as investigational or for research. Positive and negative controls stain appropriately. Performed By: #### 95495-3 # ### [facility] CLIA [id number] [address] [place] [address] [place] OPERATIVE NO Observed: 02/23/2025 9:45 AM Status: COMPLETED Source: [facility] HNO ID: [id number] Author: Andres MANN MD Service: Plastic Surgery Author Type: Physician Type: Operative Report Filed: 02/23/2025 10:13 Note Text: Yue Caputo [id number] February 23, 2025 Time: 1015 Place: [facility] Preop Diagnosis: Left face inclusion cyst Postop diagnosis:same Procedure: Excision of left face inclusion cyst, 2cm excised; complex repair 3.5 cm (cpt 32721) Anesthesia: Local Surgeon: Dharmesh Mann MD No qualified residents to assist with the procedure Manager Of Warehouse: ZEN Brief History: The patient was seen [...] the entire procedure. Signed: Dharmesh Mann MD PROT/CREAT UR Collected: 9:01 AM Status: F Source: [facility] Order Comment: Specimen Type : URINE SPECIMEN Ordering Facility: [facility] Address: [address] [place] [address] TYPE CODE TESTS RESULT OUT OF RANGE REFERENCE UNITS LAB 2888-6(LOINC) Prot Ur-mCnc 8 0-20 mg/dL LAB 2161-8(LOINC) Creat Ur-mCnc 52.7 20.0-300.0 mg/dL LAB 2890-2(LOINC) Prot/Creat Ur 0.15 High <0.15 mg/mg Result Comment: Adult Protei emmanuelle Categories: <0.15 mg/mg is considered normal to mildly increased 0.15 - 0.50 mg/mg is considered moderately increased >0.50 mg/mg is considered severely increased KDIGO. (2013). KDIGO 2012 Clinical Practice Guideline for the Evaluation and Management of Chronic Kidney Disease. Official Journal of the International Society of Nephrology, 3(1), 1-150. Performed By: #### 2890-2, U ACR #### [facility] CLIA [id number] [address] [place] [address] [place] ALBUMIN/CREATININE RATIO, URINE Collect ed: 02/19/2025 9:01 AM Status: F Source: [facility] Order Comment: Specimen Type : URINE SPECIMEN Ordering Facility: [facility] Address: [address] [place], [place] [id number] TYPE CODE TESTS RESULT OUT OF RANGE REFERENCE UNITS LAB 2161-8(LOINC) Creat Ur-mCnc 52.7 20.0-300.0 m g/dL LAB 83598-8(LOINC ) Microalbumin Ur-mCnc <12.0 mg/L LAB 9318-7(LOINC) Albumin/Creat Ur <23 <30 mg/g Result Comment: Adult Male a nd Female Nephrotic Criteria: <30 mg/g is considered normal to mildly increased 30-300 mg/g is considered moderately increased >300 mg/g is considered severely increased KDIGO. (2013). KDIGO 2012 Clinical Practice Guideline for the Evaluation and Management of Chronic Kidney Disease. Official Journal of the International Society of Nephrology, 3(1), 1-150. Performed By: #### 2890-2, U ACR #### [facility] CLIA [id number] [address] [place] [address] CNOV Observed: 02/19/2025 8:20 AM Status: COMPLETED Source: [facility] Office Visit ([facility]) YUE CAPUTO ([id number]) 1955 F Date Time Provider Department 02/19/25 8:20 AM YUE NEGRO [facility] During your visit today, we recorded the following information about you: Pulse Blood pressure Weight Height 71/minute 131/75 121.4 kg 1.575 m Yue Negro DO 02/19/2025 12:28 PM Signed Consultation requested by Dr Garcia for an opinion regarding kidney function. My [...] 10.2 oz) LMP 08/26/2006 (Approximate) BMI 48.95 kg/m? BP - standardized method Pulse 1 BP [...] Value 03/14/2022 6.3 (H) Latest Ref Rng AND Units 12/24/2024 09/11/202407/1407/14/2024 BMP Glucose 74 - 99 mg/dL 181 [...] 10.2 mg/dL 9.3 9.3 9.8 EGFR >=60 mL/min/1.73m? 46 31 32 Latest Ref Rng 07/06/2024 Creatinine 0.58 - 0.96 mg/dL 2.17 (H) Cystatin C 0.61 - 0.95 mg/L 1.66 (H) Cystatin C eGFR >=60 mL/min/1.73m? 36 (L) Latest Ref Rng 02/19/2025 GLUCOSE [...] update now Follow up in 6 months DO Marky Reyes Diana, DO 02/19/2025 12:11 PM Addendum You have Chronic kidney disease stage III, [...] or concerns, please message me on mychart Referring Provider: MARIA A GARCIA [[id number]] Allergies As of Date: 02/19/2025 Noted Allergy Reaction FENTANYL 04/01/2018 5 - Intolerance Comments: Drop in RR and drop in pulse ox to 70% ADHESIVE TAPE-SILICONES 07/29/2023 2 - Rash SULFA (SULFONAMIDE ANTIBIOTICS) 03/08/2007 16 - Unknown Date Reviewed: 02/19/2025 Reviewed by: Mary Hilario OCCA - Fully Assessed Reason for Visit: Consult [173] Cmt: Elevated serum creatinine Primary Visit Diagnosis:Stage 3 chronic kidney disease, unspecified whether stage 3a or 3b CKD (HCC) [N18.30] Other Visit Diagnoses:Primary hypertension [I10] Invasive lobular carcinoma of breast in female (HCC) [C50.919] Abnormal finding of blood chemistry, unspecified [R79.9] Order(s):UA DIP, URINE (POC) [] Order #: [id number] ALBUMIN/CREATININE RATIO, URINE [SQUACR] Order #: [id number]. #:[id number] PROTEIN / CREATININE RATIO [SQPRATIO] Order #: [id number]. #:[id number] RENAL FUNCTION PANEL [SQRFP] Order #: [id number] FUTURE VITAMIN D 25 HYDROXY [SQVITD] Order #: [id number] FUTURE PTH INTACT [SQPTHI] Order #: [id number] FUTURE HEMOGLOBIN A1C [HSIKV6I] Order #: [id number] FUTURE CONSULT TO NEPHROLOGY [9018] Order #: [id number]: 1 KIDNEY/BLADDER [7705984] Order #: [id number] FUTURE UA DIP, URINE (POC) [] Order #: [id number]. #:[id number] Prescriptions as of 02/19/2025 - ribociclib (KISQALI) 400 mg/day (200 mg x 2) tab Take 2 tablets (400 mg) by mouth once daily for 21 days. Then take a 7-day rest period to complete a 28-day treatment cycle. Discard after 60 days from fill date. - letrozole (FEMARA) 2.5 mg tablet TAKE 1 TABLET BY MOUTH EVERY DAY - NAPROXEN ORAL Take by mouth two times a day. - cholecalciferol (VITAMIN D-3) 5,000 unit tab [...] mg by mouth two times a day. Problem List As Of Date 02/19/2025 Noted Resolved SPINAL STENOSIS NOS [M48.00] Mixed [...] bilateral [Z96.653] 05/19/2018 AF (paroxysmal atrial fibrillation) ([facility]) [I48.*12/08/2021 03/14/2022 Right arm weakness [R29.898] 03/14/2022 [...] Status post cataract surgery, right [Z98.41] 06/18/2024 Other instructions from your clinician: You have Chronic kidney disease stage III, [...] or concerns, please message me on mychart Medications Discontinued During This Encounter Prescriptions - cephALEXin (KEFLEX) 500 mg capsule (Discontinued) Take 1 capsule by mouth three times a day for 3 days. Disposition: Return in about 6 months (around 08/21/2025) for with Kidney medicine HEART COORDINATOR . Follow-up and Disposition History for Encounter Date Provider Department Center 02/19/2025 [id number], DIANA [facility] Encounter Status:Closed by YUE NEGRO on 02/19/25 PROGRESS Observed: 02/19/2025 8:20 AM Status: COMPLETED Source: [facility] ID: [id number] Author: YUE NEGRO, DO Service: ? Author Type: Physician Type: Progress Notes Filed: 02/19/2025 12:28 Note Text: Consultation requested by Dr Garcia for an opinion regarding kidney function. My [...] 10.2 oz) LMP 08/26/2006 (Approximate) BMI 48.95 kg/m? BP - standardized method Pulse 1 BP [...] Value 03/14/2022 6.3 (H) Latest Ref Rng AND Units 12/24/2024 09/11/2024 07/14/2024 BMP Glucose 74 [...] 10.2 mg/dL 9.3 9.3 9.8 EGFR >=60 mL/min/1.73m? 46 31 32 Latest Ref Rng 07/06/2024 Creatinine 0.58 - 0.96 mg/dL 2.17 (H) Cystatin C 0.61 - 0.95 mg/L 1.66 (H) Cystatin C eGFR >=60 mL/min/1.73m? 36 (L) Latest Ref Rng 02/19/2025 GLUCOSE [...] update now Follow up in 6 months DO CATRINA Reyes Observed: 02/17/2025 12:00 AM Status: COMPLETED Source: [facility] Telephone ([facility]) YUE CAPUTO ([id number]) 1955 F Date Time Provider Department 02/17/25 GÓMEZ BAKER During your visit today, we recorded the following information about you: Allergies As of Date: 02/17/2025 Noted Allergy Reaction FENTANYL 04/01/2018 5 - Intolerance Comments: Drop in RR and drop in pulse ox to 70% ADHESIVE TAPE-SILICONES 07/29/2023 2 - Rash SULFA (SULFONAMIDE ANTIBIOTICS) 03/08/2007 16 - Unknown Date Reviewed: 02/15/2025 Reviewed by: Beryl Leung MA - Fully Assessed Reason for Visit: Orders [561] Digital Community Manager - Other [3602] Prescriptions as of 02/17/2025 - cephALEXin (KEFLEX) 500 mg capsule Take 1 capsule by mouth three times a day for 3 days. - ribociclib (KISQALI) 400 mg/day (200 mg x 2) tab Take 2 tablets (400 mg) by mouth once daily for 21 days. Then take a 7-day rest period to complete a 28-day treatment cycle. Discard after 60 days from fill date. - letrozole (FEMARA) 2.5 mg tablet TAKE 1 TABLET BY MOUTH EVERY DAY - NAPROXEN ORAL Take by mouth two times a day. - cholecalciferol (VITAMIN D-3) 5,000 unit tab [...] mg by mouth two times a day. Problem List As Of Date 02/17/2025 Noted Resolved SPINAL STENOSIS NOS [M48.00] Mixed [...] Status post cataract surgery, right [Z98.41] 06/18/2024 Encounter Status:Closed by MINDA POSADAS on 02/17/25 PROGRESS Observed: 02/15/2025 2:34 PM Status: COMPLETED Source: [facility] HNO ID: [id number] Author: CHIDI HORTA RPh Service: ? Author Type: ? Type: Progress Notes Filed: 02/17/2025 15:07 Note Text: [facility] Specialty Refill Assessment Medication(s): Kisqali Reviewed chart notes since last [facility] encounter. No new concerns or ADRS reported by pt regarding kisqali. No changes to treatment noted at this time. No new labs. Refill appropriate. Kisqali Cycles (21 days on / 7 days off): C1D1 - 1 C2D1 - 2/06/19 C3D1 - 3 C4D1 - 4 C5D1 - 5 C6D1 - 6 C7D1 - 02/22/25 C8D1 - 7 Next clinic visit scheduled 04/01/25. ALLERGIES Allergen Reactions Fentanyl Intolerance Drop in [...] been reviewed prior to dispensing the medication. Chidi Horta, PharmD Clinical Pharmacist, Oncology [facility] P: , F: Pool: P [facility] Pool #: [id number] Retail Cashier Associate Assessment Patient confirmed: Yes Med/dose confirmed: Yes Supplies needed: No supplies needed Missed doses: No Estimated days supply on hand: 0 Next cycle/dose due: 02/22/25 Copay amount: 0 Delivery method: FedEx Signature required: Waived on patient request Delivery address: [address] [place] [address] Delivery date: 02/19/25 Questions or concerns for [...] facility-administered medications on file prior to visit. [facility] CLINICAL ASSESSMENT - HEMATOLOGY ONCOLOGY V6: Assessment to use: Refill Date of influenza vaccination reminder: 08/28/2024 Date of most recent vaccination assessment: 08/28/2024 Treatment Plan Information: Diagnosis: T3, N3, M0, invasive lobular carcinoma, grade 2, ER 80%, OK 5% and HER2/akash negative, IHC 0 Previous [...] discretion Est. Estimated Treatment Duration: 3 years Shanelcary Oropeza CNOV Observed: 02/15/2025 11:10 AM Status: COMPLETED Source: [facility] Office Visit ([facility]) YUE CAPUTO ([id number]) 1955 F Date Time Provider Department 02/15/25 11:10 AM GÓMEZ BAKER During your visit today, we recorded the following information about you: Pulse Blood pressure Weight Height 71/minute 98/4 126.1 kg 1.575 m Gómez Baker MD 02/17/2025 9:46 AM Signed Assessment NEW CONSULT PATIENT NAME: Yue Caputo REASON FOR CONSULT: Patient presents with: New Patient: BILL REQUESTING PHYSICIAN: Maria A Garcia MD DATE of SERVICE: 01/28/2025 TIME of SERVICE: 1:12 PM PCP: Flip Jenkins MD Chief Complaint: difficulty breathing Consultation requested by Dr. Maria A Garcia for an opinion regarding paraesophageal hernia. My final recommendations will be communicated back to the requesting physician by way of shared Medical record or letter to requesting physician via US mail. HPI: Yue Caputo is a 69-year-old female with a history of a paraesophageal hernia, presenting with dyspnea. Yue reports dyspnea, which she attributes to her [...] CT scan about a month ago at [facility], which reportedly showed a medium to large hernia. 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 PHYSICAL EXAMINATION: General appearance: Obese and Walker IMAGING: CT ABD/PEL OSH 05/04/2024: View External Imaging - CT Scan [ID [id number]] Personal review and interpretation shows moderate paraesophageal [...] - Normal examined duodenum. EGD DIAGNOSTIC (Order #[id number]) on 02/11/2023 - Order Result History Report [...] Obtain the most recent CT scan from [facility] for review. - Refer to pulmonology [...] Level: 4 - Moderate; Gómez Baker MD Referring Provider: MARIA A GARCIA [[id number]] Allergies As of Date: 02/15/2025 Noted Allergy Reaction FENTANYL 04/01/2018 5 - Intolerance Comments: Drop in RR and drop in pulse ox to 70% ADHESIVE TAPE-SILICONES 07/29/2023 2 - Rash SULFA (SULFONAMIDE ANTIBIOTICS) 03/08/2007 16 - Unknown Date Reviewed: 02/15/2025 Reviewed by: Beryl Leung MA - Fully Assessed Reason for Visit: New Patient [172] Cmt: Primary Visit Diagnosis:Difficulty breathing [R06.89] Other Visit Diagnoses:Hiatal hernia [K44.9] Class 3 severe obesity due to excess calories with body mass index (BMI) of 50.0 to 59.9 in adult, unspecified whether serious comorbidity present ([facility]) [E66.813, Z68.43] Gastroesophageal reflux disease without esophagitis [K21.9] Order(s):CONSULT TO GENERAL SURGERY [9011] Order #: [id number]: 1 CONSULT TO PULMONARY MEDICINE [5639516] Order #: [id number]: 1 EGD DIAGNOSTIC [GI9] Order #: [id number] FUTURE XR ESOPHAGRAM [6329906] Order #: [id number] FUTURE Prescriptions as of 02/17/2025 - cephALEXin (KEFLEX) 500 mg capsule Take 1 capsule by mouth three times a day for 3 days. - ribociclib (KISQALI) 400 mg/day (200 mg x 2) tab Take 2 tablets (400 mg) by mouth once daily for 21 days. Then take a 7-day rest period to complete a 28-day treatment cycle. Discard after 60 days from fill date. - letrozole (FEMARA) 2.5 mg tablet TAKE 1 TABLET BY MOUTH EVERY DAY - NAPROXEN ORAL Take by mouth two times a day. - cholecalciferol (VITAMIN D-3) 5,000 unit tab [...] mg by mouth two times a day. Problem List As Of Date 02/15/2025 Noted Resolved SPINAL STENOSIS NOS [M48.00] Mixed [...] Status post cataract surgery, right [Z98.41] 06/18/2024 Encounter Status:Closed by GÓMEZ BAKER on 02/17/25 PROGRESS Observed: 02/15/2025 11:10 AM Status: COMPLETED Source: [facility] HNO ID: [id number] Author: GÓMEZ BAKER MD Service: ? Author Type: Physician Type: Progress Notes Filed: 02/17/2025 09:46 Note Text: Assessment NEW CONSULT PATIENT NAME: Yue Caputo REASON FOR CONSULT: Patient presents with: New Patient: HH REQUESTING PHYSICIAN: Maria A Garcia MD DATE of SERVICE: 01/28/2025 TIME of SERVICE: 1:12 PM PCP: Flip Jenkins MD Chief Complaint: difficulty breathing Consultation requested by Dr. Maria A Garcia for an opinion regarding paraesophageal hernia. My final recommendations will be communicated back to the requesting physician by way of shared Medical record or letter to requesting physician via US mail. HPI: Yue Caputo is a 69-year-old female with a history of a paraesophageal hernia, presenting with dyspnea. Yue reports dyspnea, which she attributes to her [...] CT scan about a month ago at [facility], which reportedly showed a medium to large hernia. 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 PHYSICAL EXAMINATION: General appearance: Obese and Walker IMAGING: CT ABD/PEL OSH 05/04/2024: View External Imaging - CT Scan [ID [id number]] Personal review and interpretation shows moderate paraesophageal [...] - Normal examined duodenum. EGD DIAGNOSTIC (Order #[id number]) on 02/11/2023 - Order Result History Report [...] Obtain the most recent CT scan from [facility] for review. - Refer to pulmonology [...] in adult, unspecified whether serious comorbidity present ([facility]) (E66.813) Patient has a high BMI, which [...] Level: 4 - Moderate; Gómez Baker MD PROGRESS Observed: 02/15/2025 10:11 AM Status: COMPLETED Source: [facility] HNO ID: [id number] Author: NICOLE SON, DO Service: ? Author Type: Physician Type: Progress Notes Filed: 02/15/2025 14:17 Note Text: Yue Caputo is a patient of Flip Jenkins MD. 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 Images were reviewed with the [...] these instructions. Informed Consent Consent Obtained: Verbal De Berry Protocol A moment to CARE was completed. [...] the bedside nurse for hospitalized patients) applicable. Nicole Son DO XR HIP 3V PELV+ AP/LAT LT Observed: 01/25 10:02 AM Status: F Source: [facility] * * *Final Report* * * DATE [...] in the lower lumbar spine, incompletely assessed. IMPRESSION: Severe left hip osteoarthritis, progressed since 2021. Vascular Neurologist: BEA Transcribe Date/Time: Feb 15 2025 1:05P Dictated by : ABUNDIO VILLA MD This examination was interpreted and the report reviewed and electronically signed by: ABUNDIO VILLA MD on Feb 15 2025 1:07PM EST [id number] PROGRESS Observed: 02/15/2025 9:56 AM Status: COMPLETED Source: [facility] HNO ID: [id number] Author: Andres MANN MD Service: ? Author Type: Physician Type: Progress Notes Filed: 02/15/2025 10:27 Note Text: Yue is a 69 yo female, her main [...] of face cyst and repair; local; outpatient J Adryan Mann MD PROGRESS Observed: 02/15/2025 9:45 AM Status: COMPLETED Source: [facility] ID: [id number] Author: IDA BUCHANAN RT(R) Service: Radiology Author Type: Technologist Type: Progress Notes Filed: 02/15/2025 09:59 Note Text: Radiology Service Progress Note PATIENT NAME: Yue Caputo DATE OF SERVICE: February 15, 2025 [...] PATIENT PRESENTS WITH AN IMPLANTABLE OR ATTACHED BASIN OPERATOR: No RADIOLOGY DEPARTMENT: General X-ray: Exam(s) Completed: Pelvis X-Ray: Pelvis with Hip Left PERIPHERAL IV DATA: Not applicable SIGNED BY: RT Jessica(R) February 15, 2025 9:59 AM MIGUELINA Observed: 02/15/2025 9:45 AM Status: COMPLETED Source: [facility] Office Visit ([place]) YUE CAPUTO ([id number]) 1955 F Date Time Provider Department 02/15/25 9:45 AM NICOLE SON During your visit today, we recorded the following information about you: Nicole Son DO 02/15/2025 2:17 PM Signed Yue Caputo is a patient of Flip Jenkins MD. CHIEF COMPLAINT: Yue Caputo is a 69 year old [...] Denies any new injury Does not recall shelter significant relief from [place] hip injection done PHYSICAL EXAMINATION: Specific MSK Exam Antalgic gait IMAGING: Final results and radiologist's interpretation, available in the [facility] health record. Images were reviewed with the [...] these instructions. Informed Consent Consent Obtained: Verbal De Berry Protocol A moment to CARE was completed. [...] the bedside nurse for hospitalized patients) applicable. Nicole Son DO Referring Provider: AMRIA A GARCIA [[id number]] Allergies As of Date: 02/15/2025 Noted Allergy Reaction FENTANYL 04/01/2018 5 - Intolerance Comments: Drop in RR and drop in pulse ox to 70% ADHESIVE TAPE-SILICONES 07/29/2023 2 - Rash SULFA (SULFONAMIDE ANTIBIOTICS) 03/08/2007 16 - Unknown Date Reviewed: 02/15/2025 Reviewed by: Beryl Leung MA - Fully Assessed Reason for Visit: Established Patient [175] Pain [78] Primary Visit Diagnosis:Primary osteoarthritis of left hip [M16.12] Other Visit Diagnosis:Pain in left hip [M25.552] Order(s):XR HIP GENERAL 3V PELV/AP/LAT LEFT [[id number]] Order #: [id number] [facility] HIP-INJECTION LT (POC) KELLY USE ONLY [[id number]] Order #: [id number]. #:[id number]: 1 Large Joint Arthro/Inj: L hip joint [GND076] Order #: [id number] [] lidocaine (PF) 10 mg/mL (1 %) 4 mL injection (XYLOCAINE)Disp: Rfl: [] triamcinolone acetonide 40 mg injection (KeNALog 40)Disp: Rfl: Prescriptions as of 02/15/2025 - cephALEXin (KEFLEX) 500 mg capsule Take 1 capsule by mouth three times a day for 3 days. - ribociclib (KISQALI) 400 mg/day (200 mg x 2) tab Take 2 tablets (400 mg) by mouth once daily for 21 days. Then take a 7-day rest period to complete a 28-day treatment cycle. Discard after 60 days from fill date. - letrozole (FEMARA) 2.5 mg tablet TAKE 1 TABLET BY MOUTH EVERY DAY - NAPROXEN ORAL Take by mouth two times a day. - cholecalciferol (VITAMIN D-3) 5,000 unit tab [...] mg by mouth two times a day. Problem List As Of Date 02/15/2025 Noted Resolved SPINAL STENOSIS NOS [M48.00] Mixed [...] Status post cataract surgery, right [Z98.41] 06/18/2024 Prescriptions ordered this encounter Disp Refills Start End LIDOCAINE (PF) 10 MG/ML (1 %) INJECT* 02/15/2025 02/15/2025 Route: Inj-ORTHO TRIAMCINOLONE ACETONIDE 40 MG/ML CAYDEN* 02/15/2025 02/15/2025 Route: Inj-ORTHO Encounter Status:Closed by NICOLE SON on 02/15/25 MIGUELINA Observed: 02/15/2025 9:15 AM Status: COMPLETED Source: [facility] Office Visit (PLASAV) YUE CAPUTO ([id number]) 1955 F Date Time Provider Department 02/15/25 9:15 AM Andres MANN During your visit today, we recorded the following information about you: Andres Mann MD 02/15/2025 10:27 AM Signed Yue is a 69 yo female, her main [...] of face cyst and repair; local; outpatient J Adryan Mann MD Referring Provider: MARIA A GARCIA [[id number]] Allergies As of Date: 02/15/2025 Noted Allergy Reaction FENTANYL 04/01/2018 5 - Intolerance Comments: Drop in RR and drop in pulse ox to 70% ADHESIVE TAPE-SILICONES 07/29/2023 2 - Rash SULFA (SULFONAMIDE ANTIBIOTICS) 03/08/2007 16 - Unknown Date Reviewed: 12/30/2024 Reviewed by: Maria A Garcia MD - Fully Assessed Primary Visit Diagnosis:Painful scar [R52, L90.5] Other Visit Diagnoses:Excess skin [L98.7] Inclusion cyst [L72.0] Order(s):cephALEXin (KEFLEX) 500 mg capsuleTake 1 capsule by mouth three times a day for 3 days.Disp: 9 capsuleRfl: 0 Prescriptions as of 02/15/2025 - cephALEXin (KEFLEX) 500 mg capsule Take 1 capsule by mouth three times a day for 3 days. - ribociclib (KISQALI) 400 mg/day (200 mg x 2) tab Take 2 tablets (400 mg) by mouth once daily for 21 days. Then take a 7-day rest period to complete a 28-day treatment cycle. Discard after 60 days from fill date. - letrozole (FEMARA) 2.5 mg tablet TAKE 1 TABLET BY MOUTH EVERY DAY - NAPROXEN ORAL Take by mouth two times a day. - cholecalciferol (VITAMIN D-3) 5,000 unit tab [...] mg by mouth two times a day. Problem List As Of Date 02/15/2025 Noted Resolved SPINAL STENOSIS NOS [M48.00] Mixed [...] Status post cataract surgery, right [Z98.41] 06/18/2024 Prescriptions ordered this encounter Disp Refills Start End CEPHALEXIN 500 MG CAPSULE 9 ca* 0 02/15/2025 02/18/2025 Route: PO Sig: Take 1 capsule by mouth three times a day for 3 days. Encounter Status:Closed by Andres MANN on 02/15/25 PROGRESS Observed: 01/19/2025 12:18 PM Status: COMPLETED Source: [facility] HNO ID: [id number] Author: CHIDI HORTA RPh Service: ? Author Type: ? Type: Progress Notes Filed: 01/21/2025 07:43 Note Text: [facility] Refill Assessment Medication(s): Hayleesqali Reviewed OV note on 12/30 and other chart notes since last CCSP encounter. Pt tolerating treatment well. She endorses chronic L hip pain and her hiatal hernia bothering her - otherwise no new concerns or ADRS. Encouraged to lose weight and referred to Dr. Candelaria for hernia and ortho for L hip osteoarthritis. Dr. Garcia recommends continuation of therapy with no changes at this time. Refill appropriate. Labs reviewed from 12/24: - WBC 2.31 (G2), Hgb 11.4, Plt 304, ANC 1.35 (G2) - CMP stable/improved Kisqali Cycles (21 days on / 7 days off): C1D1 - 09/07/24 C2D1 - 10/05/24 C3D1 - 11/02/24 C4D1 - 11/30/24 C5D1 - 12/28/24 C6D1 - 01/25/25 C7D1 - 02/22/25 Next clinic visit scheduled 04/01/25. ALLERGIES Allergen Reactions Fentanyl Intolerance Drop in [...] been reviewed prior to dispensing the medication. Chidi Horta, HueyD Clinical Pharmacist, Oncology [facility] P: , F: Pool: P [facility] Pool #: [id number] Retail Cashier Associate Assessment Patient confirmed: Yes Med/dose confirmed: Yes Supplies needed: No supplies needed Missed doses: No Estimated days supply on hand: 0 Next cycle/dose due: 01/25/25 Copay amount: 0 Delivery method: FedEx Signature required: Waived on patient request Delivery address: [address] [place] [address] Delivery date: 01/22/25 Questions or concerns for [...] facility-administered medications on file prior to visit. [facility] SPECIALTY CLINICAL ASSESSMENT - HEMATOLOGY ONCOLOGY [...] 80%, OK 5% and HER2/akash negative, IHC 0 Previous [...] Estimated Treatment Duration: 3 years Shanel Oropeza CNOVSP Observed: 12/30/2024 9:45 AM Status: COMPLETED Source: [facility] Visit (SP) Office (HEMAVN) YUE CAPUTO ([id number]) 1955 F Date Time Provider Department 12/30/24 9:45 AM MARIA A GARCIA During your visit today, we recorded the following information about you: Temperature Pulse Respiration Blood pressure 97.9 degrees 72/minute 18/minute 124/50 Weight Height 126.5 kg 1.575 m Maria A Garcia MD 12/30/2024 9:57 AM Signed PATIENT NAME: Yue Campos [facility] CLINIC NO.: [id number] ATTENDING PHYSICIAN: Maria A Garcia MD DATE OF SERVICE: December 30, 2024 Some of the elements of this note have been copied from my previous progress note dated 07/16/2024. All the information has been reviewed carefully. Dear Dr. Mendoza Yang here is an update on a follow up visit on female Yue Campos Net[place]ie at the clinic December 30, 2024 Diagnosis: [...] of arthralgia from the Arimidex. HPI: Yue Caputo is a 68 year old year [...] elected to transfer her care to the [facility] and underwent a L breast mastectomy [...] (126.5kg) SpO2 97% LMP 08/26/2006 BMI 50.98 kg/(m2). Wt 125.2 kg (276 lb 0.3 oz) [...] Range Status 12/24/2024 10.0 % Final Abs [place] Date Value Ref Range Status 12/24/2024 0.23 [...] Examined (sentinel and non-sentinel) 4 Number of [place] Nodes Examined 4 pTNM CLASSIFICATION (AJCC 8th Edition) Reporting of pT, pN, and (when applicable) pM categories is based on information available to the pathologist at the time the report is issued. As per the AJCC (Chapter 1, 8th Ed.) it is the managing physician?s responsibility to establish the final pathologic stage [...] and US: Negative. Assessment and Plan: Yue Caputo is a 67 year old year [...] Verzenio was started later due to patient administrative library assistant program in late April 2024 at [...] do not hesitate to contact me at [phone]. Maria A Garcia MD Hematology/Medical Oncology [facility] spent a total of 30 minutes on the date of the service which included preparing to see the patient, [id number] patient care, completing clinical documentation, obtaining and/or reviewing separately obtained history, performing a medically appropriate examination, and counseling and educating the patient/family/caregiver. CC: Flip Jenkins MD Knott, Christina, ANIMAL HUSBANDRY PROFESSOR 12/30/2024 9:54 AM Addendum Schedule OV with Dr. Son, Ortho Schedule consult with Dr. Candelaria, general surgery F/U with Dr. Garcia 04/01/25, port draw appt @ [facility] ( pt will call to schedule port draw) Schedule OV with Dr. Claudio Cobian, plastic surgery Schedule Mammogram ( pt prefers with another appt to reduce travel) Allergies As of Date: 12/30/2024 Noted Allergy Reaction FENTANYL 04/01/2018 5 - Intolerance Comments: Drop in RR and drop in pulse ox to 70% ADHESIVE TAPE-SILICONES 07/29/2023 2 - Rash SULFA (SULFONAMIDE ANTIBIOTICS) 03/08/2007 16 - Unknown Date Reviewed: 12/30/2024 Reviewed by: Maria A Garcia MD - Fully Assessed Reason for Visit: Established Patient [175] Primary Visit Diagnosis:Invasive lobular carcinoma of breast in female (HCC) [C50.919] Other Visit Diagnosis:Hiatal hernia [K44.9] Order(s):CONSULT TO GENERAL SURGERY [9004] Order #: [id number]: 1 FUTURE COMPLETE BLOOD COUNT AND DIFFERENTIAL [SQCBCDIF] Order #: [id number] FUTURE COMPREHENSIVE METABOLIC PANEL [SQCMP] Order #: [id number] FUTURE Disposition: Return in about 3 months (around 04/01/2025). Follow-up and Disposition History for Encounter Date Provider Department Center 12/30/2024 [id number], KASRA HEMAVN Rej Prescriptions as of 12/30/2024 - ribociclib (KISQALI) 400 mg/day (200 mg x 2) tab Take 2 tablets (400 mg) by mouth once daily for 21 days. Then take a 7-day rest period to complete a 28-day treatment cycle. Discard after 60 days from fill date. - letrozole (FEMARA) 2.5 mg tablet TAKE 1 TABLET BY MOUTH EVERY DAY - NAPROXEN ORAL Take by mouth two times a day. - cholecalciferol (VITAMIN D-3) 5,000 unit tab [...] mg by mouth two times a day. Problem List As Of Date 12/30/2024 Noted Resolved SPINAL STENOSIS NOS [M48.00] Mixed [...] Status post cataract surgery, right [Z98.41] 06/18/2024 Other instructions from your clinician: Schedule OV with Dr. Son, Ortho Schedule consult with Dr. Candelaria, general surgery F/U with Dr. Garcia 04/01/25, port draw appt @ [facility] ( pt will call to schedule port draw) Schedule OV with Dr. Claudio Cobian, plastic surgery Schedule Mammogram ( pt prefers with another appt to reduce travel) Encounter Status:Closed by MARIA A GARCIA on 12/30/24 PROGRESS Observed: 12/30/2024 9:35 AM Status: COMPLETED Source: [facility] HNO ID: [id number] Author: MARIA A GARCIA MD Service: ? Author Type: Physician Type: Progress Notes Filed: 12/30/2024 09:57 Note Text: PATIENT NAME: Yue Caputo [facility] NO.: [id number] ATTENDING PHYSICIAN: Maria A Garcia MD DATE OF SERVICE: December 30, 2024 Some of the elements of this note have been copied from my previous progress note dated 07/16/2024. All the information has been reviewed carefully. Dear Dr. Mendoza Yang here is an update on a follow up visit on female Yue Caputo at the clinic December 30, 2024 [...] of arthralgia from the Arimidex. HPI: Yue Caputo is a 68 year old year [...] elected to transfer her care to the [facility] and underwent a L breast mastectomy [...] (126.5kg) SpO2 97% LMP 08/26/2006 BMI 50.98 kg/(m2). Wt 125.2 kg (276 lb 0.3 oz) [...] Range Status 12/24/2024 10.0 % Final Abs [place] Date Value Ref Range Status 12/24/2024 0.23 [...] Examined (sentinel and non-sentinel) 4 Number of [place] Nodes Examined 4 pTNM CLASSIFICATION (AJCC 8th Edition) Reporting of pT, pN, and (when applicable) pM categories is based on information available to the pathologist at the time the report is issued. As per the AJCC (Chapter 1, 8th Ed.) it is the managing physician?s responsibility to establish the final pathologic stage [...] and US: Negative. Assessment and Plan: Yue Caputo is a 67 year old year [...] Verzenio was started later due to patient administrative library assistant program in late April 2024 at [...] do not hesitate to contact me at [phone]. Maria A Garcia MD Hematology/Medical Oncology [facility] I spent a total of 30 minutes on the date of the service which included preparing to see the patient, [id number] patient care, completing clinical documentation, obtaining and/or reviewing separately obtained history, performing a medically appropriate examination, and counseling and educating the patient/family/caregiver. CC: Flip Jenkins MD CNNURSE Observed: 12/24/2024 9:30 AM Status: COMPLETED Source: [facility] Nurse Visit (HEMASA) YUE CAPUTO ([id number]) 1955 F Date Time Provider Department 12/24/24 9:30 AM GEORGINA NURSE ISRAEL RILEY SOFÍA During your visit today, we recorded the following information about you: Hansa Pena MA 12/24/2024 9:13 AM Signed EKG performed as ordered. Hansa Pena MA Referring Provider: MARIA A GARCIA [[id number]] Allergies As of Date: 12/24/2024 Noted Allergy Reaction FENTANYL 04/01/2018 5 - Intolerance Comments: Drop in RR and drop in pulse ox to 70% ADHESIVE TAPE-SILICONES 07/29/2023 2 - Rash SULFA (SULFONAMIDE ANTIBIOTICS) 03/08/2007 16 - Unknown Date Reviewed: 10/15/2024 Reviewed by: Yvonne Langford MA - Fully Assessed Visit Diagnosis:Invasive lobular carcinoma of breast in female (HCC) [C50.919] Order(s):ECG COMPLETE [ECG01] Order #: [id number] ECG COMPLETE [ECG01] Order #: [id number] Prescriptions as of 12/24/2024 - ribociclib (KISQALI) 400 mg/day (200 mg x 2) tab Take 2 tablets (400 mg) by mouth once daily for 21 days. Then take a 7-day rest period to complete a 28-day treatment cycle. Discard after 60 days from fill date. - letrozole (FEMARA) 2.5 mg tablet TAKE 1 TABLET BY MOUTH EVERY DAY - PENICILLIN V POTASSIUM ORAL Take by mouth. - NAPROXEN ORAL Take by mouth two times a day. - cholecalciferol (VITAMIN D-3) 5,000 unit tab [...] mg by mouth two times a day. Problem List As Of Date 12/24/2024 Noted Resolved SPINAL STENOSIS NOS [M48.00] Mixed [...] Status post cataract surgery, right [Z98.41] 06/18/2024 Encounter Status:Closed by HANSA PENA on 12/24/24 PROGRESS Observed: 12/24/2024 9:12 AM Status: COMPLETED Source: [facility] HNO ID: [id number] Author: HANSA PENA MA Service: ? Author Type: Non Categorical Preschool Teacher Type: Progress Notes Filed: 12/24/2024 09:13 Note Text: EKG performed as ordered. Hansa Pena MA CBC W AUTO DIFF BLD Collected: 12/24/2024 8:[address] atus: F Source: [facility] Order Comment: Specimen Type : BLOOD SPECIMEN Ordering Facility: [facility] Address: [address] [place] [address] TYPE CODE TESTS RESULT OUT OF RANGE REFERENCE UNITS LAB 6690-2(LOINC) WBC # Bld Auto 2.31 Low 3.70-11.00 k/uL LAB 789-8(LOINC) RBC # Bld Auto 3.30 Low 3.90-5.20 m/ uL LAB 718-7(LOINC) Hgb Bld-mCnc 11.4 Low 11.5-15.5 g/dL LAB 4544-3([facility]) Hct VFr Bld Auto 33.5 Low 36.0-46.0 % LAB 787-2([facility]) MCV RBC Auto 101.5 High 80.0-100.0 fL LAB 785-6([facility]) MCH RBC Qn Auto 34.5 High 26.0-34.0 p g LAB 786-4([facility]) MCHC RBC Auto-mCnc 34.0 30.5-36.0 g/dL LAB 37920-6([facility]) RDW RBC-Rto 18.3 High 11.5-15.0 % LAB 777-3([facility]) Platelet # Bld Auto 304 150-400 k/uL LAB 67931-5([facility]) PMV Bld Auto 9.1 9.0-12.7 fL LAB 770-8([facility]) Neutrophils/leuk NFr Bld Auto 58.3 % LAB 751-8([facility]) Neutrophils # Bld Auto 1.35 Low 1.45-7.50 k/uL LAB 736-9([facility]) Lymphocytes/leuk NFr Bld Auto 22.1 % LAB 731-0([facility]) Lymphocytes # Bld Auto 0.51 Low 1.00-4.00 k/uL LAB 5905-5([facility]) Monocytes/leuk NFr Bld Auto 10.0 % LAB 742-7([facility]) Monocytes # Bld Auto 0.23 <0.87 k/uL LAB 713-8([facility]) Eosinophil/leuk NFr Bld Auto 7.4 % LAB 711-2([facility]) Eosinophil # Bld Auto 0.17 <0.46 k/uL LAB 706-2([facility]) Basophils/leuk NFr Bld Auto 2.2 % LAB 704-7([facility]) Basophils # Bld Auto 0.05 <0.11 k/uL LAB 03422-8([facility]) Imm Granulocytes/tanisha k NFr Bld Auto 0.0 % LAB 52196-7([facility]) Imm Granulocytes # Bld Auto <0.03 <0.10 k/uL LAB 72087-3([facility]) nRBC/100 WBC Bld-Rto 0.0 /100 WBC LAB 771-6([facility]) nRBC # Bld Auto <0.01 <0.01 k/u L LAB 90578-8([facility]) Differential method Bld Auto Performed By: #### 47485-4 # ### [facility] CLIA [id number] [address] [place] [address] COMP METAB 2000 PNL SERPL Collected: 8:54 AM Status: F Source: [facility] Order Comment: Specimen Type : BLOOD SPECIMEN Ordering Facility: [facility] Address: [address] [place] [address] TYPE CODE TESTS RESULT OUT OF RANGE REFERENCE UNITS LAB 2885-2([facility]) Prot SerPl-mCnc 6.7 6.3-8.0 g/dL LAB 1751-7(INC) Albumin SerPl-mCnc 4.0 3.9-4.9 g/dL LAB 96823-0(LOINC) Calcium SerPl-mCnc 9.3 8.5-10.2 mg/dL LAB 1975-2(INC) Bilirub SerPl-mCnc 0.5 0.2-1.3 mg/dL LAB 6768-6(INC) ALP SerPl-cCnc 96 34-123 U/L LAB 1920-8(LOINC) AST SerPl-cCnc 18 13-35 U/L LAB 1742-6(LOINC) ALT SerPl-cCnc 16 7-38 U/L LAB 2345-7(LOINC) Glucose SerPl-mCnc 181 High 74-99 mg/dL Result Comment: The [place] Diabetes Association (ADA) provides [...] [place] Diabetes Association. Diabetes Care. 2016.39(Suppl 1). LAB 3094-0(INC) BUN SerPl-mCnc 18 7-21 mg/ dL LAB 2160-0(LOINC) Creat SerPl-mCnc 1.25 High 0.58-0.96 mg/dL LAB 2951-2(LOINC) Sodium SerPl-sCnc 142 136-144 mmol/L LAB 2823-3(LOINC) Potassium SerPl-sCnc 4.3 3.7-5.1 mmol/L LAB 2075-0(LOINC) Chloride SerPl-sCnc 105 98-107 mmol/L LAB 2028-9(LOINC) CO2 SerPl-sCnc 25 22-30 mmo l/L LAB 09779-3(LOINC) Anion Gap SerPl-sCnc 12 8-15 mmol/L LAB 77836-3(LOINC) Creatinine + eGFR Pnl SerPlBld 46 Low >=60 mL/min/1 .73m??? Result Comment: Estimated Gl omerular Filtration Rate (eGFR) is calculated using the 2020 CKD-EPI creatinine equation. This equation utilizes serum creatinine, sex, and age as parameters. The creatinine assay has traceable calibration to isotope dilution-mass spectrometry. Refer to KDIGO guidelines for clinical interpretation. In patients with unstable renal function, e.g. those with acute kidney injury, the eGFR may not accurately reflect actual GFR. Performed By: #### 12186-2 # ### [facility] CLIA [id number] [address] [place] [address] CNPN Observed: 12/22/2024 12:00 AM Status: COMPLETED Source: [facility] Telephone (HEMAVN) YUE CAPUTO ([id number]) 1955 F Date Time Provider Department 12/22/24 JENNIFER MYERS During your visit today, we recorded the following information about you: Jennifer Myers RN 12/22/2024 3:39 PM Signed Please schedule repeat EKG and notify patient. Yessi Mccarthy 12/23/2024 10:12 AM Signed Sent [place] a message to see if patient can complete EKG there. Waiting on response. Yessi Mccarthy 12/23/2024 10:32 AM Signed Scheduled by team in [place] for EKG tomorrow 12/24 Allergies As of Date: 12/22/2024 Noted Allergy Reaction FENTANYL 04/01/2018 5 - Intolerance Comments: Drop in RR and drop in pulse ox to 70% ADHESIVE TAPE-SILICONES 07/29/2023 2 - Rash SULFA (SULFONAMIDE ANTIBIOTICS) 03/08/2007 16 - Unknown Date Reviewed: 10/15/2024 Reviewed by: Yvonne Langford MA - Fully Assessed Reason for Visit: Orders [681] Scheduling [3921] Prescriptions as of 12/23/2024 - ribociclib (KISQALI) 400 mg/day (200 mg x 2) tab Take 2 tablets (400 mg) by mouth once daily for 21 days. Then take a 7-day rest period to complete a 28-day treatment cycle. Discard after 60 days from fill date. - letrozole (FEMARA) 2.5 mg tablet TAKE 1 TABLET BY MOUTH EVERY DAY - PENICILLIN V POTASSIUM ORAL Take by mouth. - NAPROXEN ORAL Take by mouth two times a day. - cholecalciferol (VITAMIN D-3) 5,000 unit tab [...] mg by mouth two times a day. Problem List As Of Date 12/22/2024 Noted Resolved SPINAL STENOSIS NOS [M48.00] Mixed [...] bilateral [Z96.653] 05/19/2018 AF (paroxysmal atrial fibrillation) ([facility]) [I48.*12/08/2021 03/14/2022 Right arm weakness [R29.898] 03/14/2022 Atrial tachycardia, paroxysmal ([facility]) [I47.19] 03/14/2022 02/05/2023 Hypertensive urgency [I16.0] 03/14/2022 [...] Status post cataract surgery, right [Z98.41] 06/18/2024 Encounter Status:Closed by JENNIFER MYERS on 12/22/24 PROGRESS Observed: 12/21/2024 2:57 PM Status: COMPLETED Source: [facility] HNO ID: [id number] Author: CHIDI HORTA RPh Service: ? Author Type: ? Type: Progress Notes Filed: 12/23/2024 08:02 Note Text: [facility] Refill Assessment Medication(s): Hayleestanja Reviewed chart notes since last CCSP encounter. Dr. Garcia's office encouraging pt to complete labs and EKG. Although these have not yet been completed, pharmacy advised to send refill at this time. No new labs to review. Kisqali Cycles (21 days on / 7 days off): C1D1 - 09/07/24 C2D1 - 10/05/24 C3D1 - 11/02/24 C4D1 - 11/30/24 C5D1 - 12/28/24 C6D1 - 01/25/25 Next clinic visit scheduled 12/30/24. ALLERGIES Allergen Reactions Fentanyl Intolerance Drop in [...] been reviewed prior to dispensing the medication. Chidi Horta, PharmD Clinical Pharmacist, Oncology [facility] P: , F: Pool: P [facility] Pool #: [id number] Retail Cashier Associate Assessment Patient confirmed: Yes Med/dose confirmed: Yes Supplies needed: No supplies needed Missed doses: No Estimated days supply on hand: 0 Next cycle/dose due: 12/28/24 Copay amount: 0 Delivery method: FedEx Signature required: Waived on patient request Delivery address: [place] [address] Delivery date: 12/24/24 Questions or concerns for [...] facility-administered medications on file prior to visit. [facility] CLINICAL ASSESSMENT - HEMATOLOGY ONCOLOGY V6: Assessment to use: Refill Date of influenza vaccination reminder: 08/28/2024 Date of most recent vaccination assessment: 08/28/2024 Treatment Plan Information: Diagnosis: T3, N3, M0, invasive lobular carcinoma, grade 2, ER 80%, OK 5% and HER2/akash negative, IHC 0 Previous [...] Estimated Treatment Duration: 3 years Shanel Oropeza PROGRESS Observed: 11/23/2024 9:46 AM Status: COMPLETED Source: [facility] HNO ID: [id number] Author: SUZANNE GONGORA RPh Service: ? Author Type: ? Type: Progress Notes Filed: 11/26/2024 09:05 Note Text: [facility] Refill Assessment Medication(s): Kisqali No new clinical information to review since last SPP refill encounter. Next OV scheduled 12/30 with labs prior. Kisqali Cycles (21 days on / 7 days off): C1D1 - 09/07/24 C2D1 - /06/19 C3D1 - 11/02/24 C4D1 - 11/30/24 C5D1 - 12/28/24 ALLERGIES Allergen Reactions Fentanyl Intolerance Drop in [...] reviewed prior to dispensing the medication. Suzanne Gongora RPh PharmD, BCPS Clinical Pharmacist, Oncology [facility] P: , F: Pool: P [facility] Pool #: [id number] Retail Cashier Associate Assessment Patient confirmed: Yes Med/dose confirmed: Yes Supplies needed: No supplies needed Missed doses: No Estimated days supply on hand: 0 Next cycle/dose due: 11/30/24 Copay amount: 0 Copay form of payment: (N/A) Payment confirmed: Yes Delivery method: FedEx Signature required: Waived on patient request Delivery address: [address] [place] [address] Delivery date: 04/04/25 Questions or concerns for the pharmacist?: No [...] facility-administered medications on file prior to visit. [facility] SPECIALTY CLINICAL ASSESSMENT - HEMATOLOGY ONCOLOGY [...] 80%, OK 5% and HER2/akash negative, IHC 0 Previous [...] Estimated Treatment Duration: 3 years Halle Serrato PROGRESS Observed: 11/23/2024 9:46 AM Status: COMPLETED Source: [facility] HNO ID: [id number] Author: SUZANNE GONGORA RPh Service: ? Author Type: Pharmacist Type: Progress Notes Filed: 12/21/2024 10:19 Note Text: From: Maria A Garcia MD Sent: 12/19/2024 2:28 PM EDT To: Nia Arias, RN; Suzanne Gongora RPh; * Go ahead and sentd the script and she will get those studies ----- Message ----- From: Suzanne Gongora RPh Sent: 12/18/2024 6:02 PM EDT To: Maria A Garcia MD; Nia Arias, RN; * Patient will be due for a new cycle of Kisqali soon. Based on prior encounter notes, patient was advised to have repeat labs/EKG completed. I do not see anything recently completed. Patient will be due for a new cycle start soon, and we will need a new prescription. I wanted to see if you wanted us to pend that refill or if you would like labs/EKG done first. Please advise. Thanks, Suzanne Gongora RPh PharmD, [facility] Clinical Pharmacist, Oncology [facility] P: , F: Pool: P [facility] ONCOLOGY Pool #: [id number] PROGRESS Observed: 10/26/2024 11:30 AM Status: COMPLETED Source: [facility] HNO ID: [id number] Author: CHIDI HORTA RPh Service: ? Author Type: ? Type: Progress Notes Filed: 10/29/2024 08:09 Note Text: [facility] Refill Assessment Medication(s): Kisqali Reviewed OV note on 10/02. Pt endorses improvement in arthralgia but continues to have problems with a hiatal hernia. Letrozole was restarted and pt seems to be tolerating so far. BMD scan 10/[address] Garcia recommends continuation of therapy with no changes at this time. Refill appropriate. No new labs to review since last [facility] encounter. Next clinic visit scheduled 12/30/24. ALLERGIES Allergen Reactions Fentanyl Intolerance Drop in [...] been reviewed prior to dispensing the medication. Kisqali Cycles (21 days on / 7 days off): C1D1 - 1 C2D1 - 2 C3D1 - 3 C4D1 - 4 Chidi Horta, HueyD Clinical Pharmacist, Oncology [facility] P: , F: Pool: P [facility] ONCOLOG[facility] Pool #: [id number] Retail Cashier Associate Assessment Patient confirmed: Yes Med/dose confirmed: Yes Supplies needed: No supplies needed Missed doses: No Estimated days supply on hand: 0 Next cycle/dose due: 11/02/24 Copay amount: 0 Delivery method: FedEx Signature required: Waived on patient request Delivery address: [address] [place] [address] Delivery date: 10/30/24 Questions or concerns for [...] facility-administered medications on file prior to visit. [facility] CLINICAL ASSESSMENT - HEMATOLOGY ONCOLOGY [...] 80%, OK 5% and HER2/akash negative, IHC 0 Previous [...] Est. Estimated Treatment Duration: 3 years Shanel FRITZ Observed: 10/16/2024 12:00 AM Status: COMPLETED Source: [facility] Telephone (HEMAVN) YUE CAPUTO ([id number]) 1955 F Date Time Provider Department 10/16/24 NIA ARIAS During your visit today, we recorded the following information about you: Nia Arias, RN 10/16/2024 1:00 PM Signed Received forms from [employer] compression therapy to sign last page of treatment and 10/02 OV notes [facility] Garcia signed treatment notes but not OV notes as they are electronically signed as his OV note. Faxed as directed to [phone] ph: [phone] message that forms have been completed Allergies As of Date: 10/16/2024 Noted Allergy Reaction FENTANYL 04/01/2018 5 - Intolerance Comments: Drop in RR and drop in pulse ox to 70% ADHESIVE TAPE-SILICONES 07/29/2023 2 - Rash SULFA (SULFONAMIDE ANTIBIOTICS) 03/08/2007 16 - Unknown Date Reviewed: 10/15/2024 Reviewed by: Yvonne Langford MA - Fully Assessed Reason for Visit: Forms [683] Prescriptions as of 10/16/2024 - PENICILLIN V POTASSIUM ORAL Take by mouth. - letrozole (FEMARA) 2.5 mg tablet Take 1 tablet by mouth once daily. - Ribociclib 400 mg/day (200 mg X 2) tablets (KISQALI) Take 2 tablets (400 mg) by mouth once daily for 21 days. Then take a 7-day rest period to complete a 28-day treatment cycle. Discard after 60 days from fill date. - NAPROXEN ORAL Take by mouth two times a day. - cholecalciferol (VITAMIN D-3) 5,000 unit tab [...] mg by mouth two times a day. Problem List As Of Date 10/16/2024 Noted Resolved SPINAL STENOSIS NOS [M48.00] Mixed [...] bilateral [Z96.653] 05/19/2018 AF (paroxysmal atrial fibrillation) ([facility]) [I48.*12/08/2021 03/14/2022 Right arm weakness [R29.898] 03/14/2022 Atrial tachycardia, paroxysmal ([facility]) [I47.19] 03/14/2022 02/05/2023 Hypertensive urgency [I16.0] 03/14/2022 03/15/2022 COPD (chronic obstructive pulmonary disease) (H*03/14/2022 GERD (gastroesophageal reflux disease) [K21.9] 03/14/2022 Primary hypertension [I10] 01/31/2023 PETERSON (dyspnea on exertion) [R06.09] 01/31/2023 Edema [R60.9] 01/31/2023 Palpitations [R00.2] 02/05/2023 Invasive lobular carcinoma of breast in female *07/23/2023 RA (rheumatoid arthritis) (HCC) [M06.9] 07/26/2023 Obesity, Class III, BMI >= 40 [E66.01] 07/29/2023 Stage 3a chronic kidney disease (HCC) [N18.31] 12/24/2023 Multiple thyroid nodules [E04.2] 05/18/2024 Pulmonary embolism (HCC) [I26.99] 11/05/2023 Status post cataract surgery, left [Z98.42] 06/09/2024 Combined forms of age-related cataract of right*06/09/2024 Status post cataract surgery, right [Z98.41] 06/18/2024 Encounter Status:Closed by NIA ARIAS on 10/16/24 PROGRESS Observed: 10/15/2024 2:21 PM Status: COMPLETED Source: [facility] HNO ID: [id number] Author: ANNEL ATKINS MD Service: ? Author Type: Physician Type: Progress Notes Filed: 10/15/2024 14:38 Note Text: General Surgery Consultation Note Mrs. Caputo is [...] edema, skin discoloration, clubbing or cyanosis. Impression: Yue Caputo is a 68F with past medical [...] possible excess skin excision. cc: Referring provider Maria A Garcia [address] [place] [address] Annel Atkins MD CNOV Observed: 10/15/2024 9:00 AM Status: COMPLETED Source: [facility] Office Visit (GENSLN) YUE CAPUTO ([id number]) 1955 F Date Time Provider Department 10/15/24 9:00 AM ANNEL ATKINS During your visit today, we recorded the following information about you: Temperature Pulse Blood pressure Weight 97.5 degrees 79/minute 154/86 125 kg Minda Posadas 10/15/2024 9:[address] Atkins has ordered a consult with plastic surgery. The number to call is [phone]. Annel Atkins MD 10/15/2024 2:38 PM Signed General Surgery Consultation Note Mrs. Caputo is [...] edema, skin discoloration, clubbing or cyanosis. Impression: Yue Caputo is a 68F with past medical [...] possible excess skin excision. cc: Referring provider Maria A Garcia [address] [place] [address] Annel Atkins MD Referring Provider: MARIA A GARCIA [[id number]] Allergies As of Date: 10/15/2024 Noted Allergy Reaction FENTANYL 04/01/2018 5 - Intolerance Comments: Drop in RR and drop in pulse ox to 70% ADHESIVE TAPE-SILICONES 07/29/2023 2 - Rash SULFA (SULFONAMIDE ANTIBIOTICS) 03/08/2007 16 - Unknown Date Reviewed: 10/15/2024 Reviewed by: Yvonne Langford MA - Fully Assessed Reason for Visit: New Patient [172] Cmt: Abscess of under left arm where she had lymph nodes taken out. Primary Visit Diagnosis:H/O left mastectomy [Z90.12] Order(s):CONSULT TO GENERAL SURGERY [9011] Order #: [id number]: 1 CONSULT TO PLASTIC SURGERY [9033] Order #: [id number]: 1 FUTURE Prescriptions as of 10/15/2024 - PENICILLIN V POTASSIUM ORAL Take by mouth. - letrozole (FEMARA) 2.5 mg tablet Take 1 tablet by mouth once daily. - Ribociclib 400 mg/day (200 mg X 2) tablets (KISQALI) Take 2 tablets (400 mg) by mouth once daily for 21 days. Then take a 7-day rest period to complete a 28-day treatment cycle. Discard after 60 days from fill date. - NAPROXEN ORAL Take by mouth two times a day. - cholecalciferol (VITAMIN D-3) 5,000 unit tab [...] mg by mouth two times a day. Problem List As Of Date 10/15/2024 Noted Resolved SPINAL STENOSIS NOS [M48.00] Mixed [...] bilateral [Z96.653] 05/19/2018 AF (paroxysmal atrial fibrillation) ([facility]) [I48.*12/08/2021 03/14/2022 Right arm weakness [R29.898] 03/14/2022 [...] Class III, BMI >= 40 [E66.01] 07/29/2023 Stage 3a chronic kidney disease (HCC) [N18.31] 12/24/2023 Multiple thyroid nodules [E04.2] 05/18/2024 Pulmonary embolism (HCC) [I26.99] 11/05/2023 Status post cataract surgery, left [Z98.42] 06/09/2024 Combined forms of age-related cataract of right*06/09/2024 Status post cataract surgery, right [Z98.41] 06/18/2024 Other instructions from your clinician: Dr. Atkins has ordered a consult with plastic surgery. The number to call is [phone]. Level of Service: OFFICE/OUTPATIENT [facility] 30 MINUTES [86177] Encounter Status:Closed by ANNEL ATKINS on 10/15/24 [facility] Observed: 10/13/2024 12:00 AM Status: COMPLETED Source: [facility] Telephone (HEMAVN) YUE CAPUTO ([id number]) 1955 F Date Time Provider Department 10/13/24 MARIA A GARCIA During your visit today, we recorded the following information about you: Elida Bowens 10/13/2024 10:16 AM Signed [employer] is calling Maria A Garcia MD today with concern regarding Orders for a Lymphoedema Compression Pump. They are trying to assist patient getting a pump. They would need OV notes. Please advise if these can be faxed to [phone]. Patient has been identified by name and birthdate. Duration of symptoms: N/A Person calling: Jeancarlos Call back at: [phone] Ex 183 Was an appointment scheduled: No Closing statement: Results or non-symptom based questions: Thank you for calling [facility], your call will be returned within the next business day. Nia Gordon, MALORIE 10/13/2024 10:40 AM Signed Faxed last OV Dr Garcia 10/02/24 as directed. Allergies As of Date: 10/13/2024 Noted Allergy Reaction FENTANYL 04/01/2018 5 - Intolerance Comments: Drop in RR and drop in pulse ox to 70% ADHESIVE TAPE-SILICONES 07/29/2023 2 - Rash SULFA (SULFONAMIDE ANTIBIOTICS) 03/08/2007 16 - Unknown Date Reviewed: 10/02/2024 Reviewed by: Maria A Garcia MD - Fully Assessed Reason for Visit: Orders [681] Prescriptions as of 10/13/2024 - letrozole (FEMARA) 2.5 mg tablet Take 1 tablet by mouth once daily. - Ribociclib 400 mg/day (200 mg X 2) tablets (KISQALI) Take 2 tablets (400 mg) by mouth once daily for 21 days. Then take a 7-day rest period to complete a 28-day treatment cycle. Discard after 60 days from fill date. - NAPROXEN ORAL Take by mouth two times a day. - cholecalciferol (VITAMIN D-3) 5,000 unit tab [...] mg by mouth two times a day. Problem List As Of Date 10/13/2024 Noted Resolved SPINAL STENOSIS NOS [M48.00] Mixed [...] bilateral [Z96.653] 05/19/2018 AF (paroxysmal atrial fibrillation) ([facility]) [I48.*12/08/2021 03/14/2022 Right arm weakness [R29.898] 03/14/2022 [...] Class III, BMI >= 40 [E66.01] 07/29/2023 Stage 3a chronic kidney disease (HCC) [N18.31] 12/24/2023 Multiple thyroid nodules [E04.2] 05/18/2024 Pulmonary embolism (HCC) [I26.99] 11/05/2023 Status post cataract surgery, left [Z98.42] 06/09/2024 Combined forms of age-related cataract of right*06/09/2024 Status post cataract surgery, right [Z98.41] 06/18/2024 Encounter Status:Closed by NIA ARIAS on 10/13/24 CNOVSP Observed: 10/02/2024 2:00 PM Status: COMPLETED Source: [facility] Visit (SP) Office (HEMAVN) PATITOYUE ([id number]) 1955 F Date Time Provider Department 10/02/24 2:00 PM MARIA A GARCIA During your visit today, we recorded the following information about you: Temperature Pulse Respiration Blood pressure 97 degrees 83/minute 18/minute 174/69 Weight Height 129.1 kg 1.575 m Maria A Garcia MD 10/02/2024 1:59 PM Signed PATIENT NAME: Yue Campos Patito CLINIC NO.: [id number] ATTENDING PHYSICIAN: Maria A Garcia MD DATE OF SERVICE: July 16, 2024 Some of the elements of this note have been copied from my previous progress note dated 06/03/2024. All the information has been reviewed carefully. Dear Dr. Mendoza Yang here is an update on a follow up visit on female Yue Porrasnimishalucie at the clinic July 16, 2024 Diagnosis: [...] of arthralgia from the Arimidex. HPI: Yue Caputo is a 68 year old year [...] elected to transfer her care to the [facility] and underwent a L breast mastectomy [...] (129.1kg) SpO2 99% LMP 08/26/2006 BMI 52.04 kg/(m2). Wt 125.2 kg (276 lb 0.3 oz) [...] Range Status 09/11/2024 4.8 % Final Abs [place] Date Value Ref Range Status 09/11/2024 0.29 [...] Examined (sentinel and non-sentinel) 4 Number of [place] Nodes Examined 4 pTNM CLASSIFICATION (AJCC 8th Edition) Reporting of pT, pN, and (when applicable) pM categories is based on information available to the pathologist at the time the report is issued. As per the AJCC (Chapter 1, 8th Ed.) it is the managing physician?s responsibility to establish the final pathologic stage [...] and US: Negative. Assessment and Plan: Yue Caputo is a 67 year old year [...] Verzenio was started later due to patient administrative library assistant program in late April 2024 at [...] do not hesitate to contact me at [phone]. Maria A Garcia MD Hematology/Medical Oncology [facility] I spent a total of 30 minutes on the date of the service which included preparing to see the patient, [id number] patient care, completing clinical documentation, obtaining and/or reviewing separately obtained history, performing a medically appropriate examination, and counseling and educating the patient/family/caregiver. CC: Flip Jenkins MD Knott, Christina, LPN 10/02/2024 1:53 PM Addendum Schedule consult with plastic surgery Mammogram December 2024 Schedule consult w/ nephrology F/U with Dr. Garcia 12/30/24, oscar draw @ [place] prior Cancel zometa today Allergies As of Date: 10/02/2024 Noted Allergy Reaction FENTANYL 04/01/2018 5 - Intolerance Comments: Drop in RR and drop in pulse ox to 70% ADHESIVE TAPE-SILICONES 07/29/2023 2 - Rash SULFA (SULFONAMIDE ANTIBIOTICS) 03/08/2007 16 - Unknown Date Reviewed: 10/02/2024 Reviewed by: Maria A Garcia MD - Fully Assessed Reason for Visit: Established Patient [175] Primary Visit Diagnosis:Invasive lobular carcinoma of breast in female (HCC) [C50.919] Other Visit Diagnoses:Elevated serum creatinine [R79.89] Lymphedema [I89.0] Inconclusive mammogram [R92.2] Encounter for screening mammogram for malignant neoplasm of breast [Z12.31] Order(s):CONSULT TO PLASTIC SURGERY [9033] Order #: [id number]: 1 FUTURE CONSULT TO NEPHROLOGY [9018] Order #: [id number]: 1 FUTURE COMPREHENSIVE METABOLIC PANEL [SQCMP] Order #: [id number] FUTURE COMPLETE BLOOD COUNT AND DIFFERENTIAL [SQCBCDIF] Order #: [id number] FUTURE TINO SCREENING W SULMA [5415003] Order #: [id number] FUTURE Disposition: Return in about 3 months (around 12/30/2024). Follow-up and Disposition History for Encounter Date Provider Department Center 10/02/2024 [id number]-HISZVAWBMARIA A GARCIA Rej Prescriptions as of 10/02/2024 - letrozole (FEMARA) 2.5 mg tablet Take 1 tablet by mouth once daily. - Ribociclib 400 mg/day (200 mg X 2) tablets (KISQALI) Take 2 tablets (400 mg) by mouth once daily for 21 days. Then take a 7-day rest period to complete a 28-day treatment cycle. Discard after 60 days from fill date. - NAPROXEN ORAL Take by mouth two times a day. - cholecalciferol (VITAMIN D-3) 5,000 unit tab [...] mg by mouth two times a day. Problem List As Of Date 10/02/2024 Noted Resolved SPINAL STENOSIS NOS [M48.00] Mixed [...] bilateral [Z96.653] 05/19/2018 AF (paroxysmal atrial fibrillation) ([facility]) [I48.*12/08/2021 03/14/2022 Right arm weakness [R29.898] 03/14/2022 Atrial tachycardia, paroxysmal ([facility]) [I47.19] 03/14/2022 02/05/2023 Hypertensive urgency [I16.0] 03/14/2022 03/15/2022 COPD (chronic obstructive pulmonary disease) (H*03/14/2022 GERD (gastroesophageal reflux disease) [K21.9] 03/14/2022 Primary hypertension [I10] 01/31/2023 PETERSON (dyspnea on exertion) [R06.09] 01/31/2023 Edema [R60.9] 01/31/2023 Palpitations [R00.2] 02/05/2023 Invasive lobular carcinoma of breast in female *07/23/2023 RA (rheumatoid arthritis) (HCC) [M06.9] 07/26/2023 Obesity, Class III, BMI >= 40 [E66.01] 07/29/2023 Stage 3a chronic kidney disease (HCC) [N18.31] 12/24/2023 Multiple thyroid nodules [E04.2] 05/18/2024 Pulmonary embolism (HCC) [I26.99] 11/05/2023 Status post cataract surgery, left [Z98.42] 06/09/2024 Combined forms of age-related cataract of right*06/09/2024 Status post cataract surgery, right [Z98.41] 06/18/2024 Other instructions from your clinician: Schedule consult with plastic surgery Mammogram December 2024 Schedule consult w/ nephrology F/U with Dr. Garcia 12/30/24, oscar landis @ [place] prior Cancel zometa today Encounter Status:Closed by MARIA A GARCIA on 10/02/24 PROGRESS Observed: 10/02/2024 1:38 PM Status: COMPLETED Source: [facility] HNO ID: [id number] Author: MARIA A GARCIA MD Service: ? Author Type: Physician Type: Progress Notes Filed: 10/02/2024 13:59 Note Text: PATIENT NAME: Yue Caputo CLINIC NO.: [id number] ATTENDING PHYSICIAN: Maria A Garcia MD DATE OF SERVICE: July 16, 2024 Some of the elements of this note have been copied from my previous progress note dated 06/03/2024. All the information has been reviewed carefully. Dear Dr. Mendoza Yang here is an update on a follow up visit on female Yue Caputo at the clinic July 16, 2024 [...] of arthralgia from the Arimidex. HPI: Yue Caputo is a 68 year old year [...] elected to transfer her care to the [facility] and underwent a L breast mastectomy [...] (129.1kg) SpO2 99% LMP 08/26/2006 BMI 52.04 kg/(m2). Wt 125.2 kg (276 lb 0.3 oz) [...] Range Status 09/11/2024 4.8 % Final Abs [place] Date Value Ref Range Status 09/11/2024 0.29 [...] Histologic Type Invasive lobular carcinoma Histologic Grade ([place] Histologic Score) Glandular (Acinar) / Tubular Differentiation [...] Examined (sentinel and non-sentinel) 4 Number of [place] Nodes Examined 4 pTNM CLASSIFICATION (AJCC 8th Edition) Reporting of pT, pN, and (when applicable) pM categories is based on information available to the pathologist at the time the report is issued. As per the AJCC (Chapter 1, 8th Ed.) it is the managing physician?s responsibility to establish the final pathologic stage [...] and US: Negative. Assessment and Plan: Yue Caputo is a 67 year old year [...] Verzenio was started later due to patient administrative library assistant program in late April 2024 at [...] do not hesitate to contact me at [phone]. Maria A Garcia MD Hematology/Medical Oncology [facility] Hightower spent a total of 30 minutes on the date of the service which included preparing to see the patient, [id number] patient care, completing clinical documentation, obtaining and/or reviewing separately obtained history, performing a medically appropriate examination, and counseling and educating the patient/family/caregiver. CC: Flip Jenkins MD PROGRESS Observed: 09/29/2024 9:22 AM Status: COMPLETED Source: [facility] HNO ID: [id number] Author: HANSA PENA MA Service: ? Author Type: Non Categorical Preschool Teacher Type: Progress Notes Filed: 09/29/2024 09:23 Note Text: Patient identified by 2 identifiers. EKG performed as ordered. Hansa Pena MA CNNURSE Observed: 09/29/2024 9:15 AM Status: COMPLETED Source: [facility] Nurse Visit (HEMASA) YUE CAPUTO ([id number]) 1955 F Date Time Provider Department 09/29/24 9:15 AM GEORGINA NURSE ISRAEL RILEY HEMFRED During your visit today, we recorded the following information about you: Hansa Pena MA 09/29/2024 9:23 AM Signed Patient identified by 2 identifiers. EKG performed as ordered. Hansa Pena MA Referring Provider: MARIA A GARCIA [[id number]] Allergies As of Date: 09/29/2024 Noted Allergy Reaction FENTANYL 04/01/2018 5 - Intolerance Comments: Drop in RR and drop in pulse ox to 70% ADHESIVE TAPE-SILICONES 07/29/2023 2 - Rash SULFA (SULFONAMIDE ANTIBIOTICS) 03/08/2007 16 - Unknown Date Reviewed: 09/01/2024 Reviewed by: Radha Cabrera MD - Fully Assessed Visit Diagnosis:Invasive lobular carcinoma of breast in female (HCC) [C50.919] Order(s):ECG COMPLETE [ECG01] Order #: [id number] Prescriptions as of 09/29/2024 - letrozole (FEMARA) 2.5 mg tablet Take 1 tablet by mouth once daily. - Ribociclib 400 mg/day (200 mg X 2) tablets (KISQALI) Take 2 tablets (400 mg) by mouth once daily for 21 days. Then take a 7-day rest period to complete a 28-day treatment cycle. Discard after 60 days from fill date. - prednisoLONE acetate (PRED FORTE) 1 % ophthalmic suspension Use 1 Drop in the right eye as directed. Starting TOMORROW place one drop in operative eye four times a day. - prednisoLONE acetate (PRED FORTE) 1 % ophthalmic suspension Use 1 Drop in the left eye as directed. Starting TOMORROW place one drop in operative eye four times a day. - NAPROXEN ORAL Take by mouth two times a day. - cholecalciferol (VITAMIN D-3) 5,000 unit tab [...] mg by mouth two times a day. Problem List As Of Date 09/29/2024 Noted Resolved SPINAL STENOSIS NOS [M48.00] Mixed [...] Class III, BMI >= 40 [E66.01] 07/29/2023 Stage 3a chronic kidney disease (HCC) [N18.31] 12/24/2023 Multiple thyroid nodules [E04.2] 05/18/2024 Pulmonary embolism (HCC) [I26.99] 11/05/2023 Status post cataract surgery, left [Z98.42] 06/09/2024 Combined forms of age-related cataract of right*06/09/2024 Status post cataract surgery, right [Z98.41] 06/18/2024 Encounter Status:Closed by HANSA PENA on 09/29/24 PROGRESS Observed: 09/21/2024 11:37 AM Status: COMPLETED Source: [facility] HNO ID: [id number] Author: SUZANNE GONGORA RPh Service: ? Author Type: ? Type: Progress Notes Filed: 09/30/2024 10:25 Note Text: [facility] Refill Assessment Medication(s): Kisqali Reviewed encounter notes since initial specialty review. Has follow up scheduled 10/02. Patient reported starting first cycle on 09/07. EKG done 09/29. Labs reviewed 09/11. QTcF = 411 from 09/29 EKG Next clinic visit scheduled 10/02. Kisqali Cycles are as follows (21 days on / 7 days off): C1D1 - 09/07/24 C2D1 - 10/05/24 C3D1 - 11/02/24 ALLERGIES Allergen Reactions Fentanyl Intolerance Drop in [...] reviewed prior to dispensing the medication. Suzanne Gongora RPh PharmD, BCPS Clinical Pharmacist, Oncology [facility] P: , F: Pool: P CC [facility] Pool #: [id number] Retail Cashier Associate Assessment Patient confirmed: Yes Med/dose confirmed: Yes Supplies needed: No supplies needed Missed doses: No Estimated days supply on hand: 7 Next cycle/dose due: 10/05/24 Copay amount: 0 Payment confirmed: Yes Delivery method: FedEx Signature required: Waived on patient request Delivery address: [address] [place] [address] Delivery date: 10/02/24 Questions or concerns for [...] facility-administered medications on file prior to visit. [facility] CLINICAL ASSESSMENT - HEMATOLOGY ONCOLOGY [...] 80%, OK 5% and HER2/akash negative, IHC 0 Previous [...] Estimated Treatment Duration: 3 years Merly Caceres ([employer] Cutter) CATRINA Observed: 09/14/2024 12:00 AM Status: COMPLETED Source: [facility] Telephone (HEMAVN) YUE CAPUTO ([id number]) 1955 F Date Time Provider Department 09/14/24 TORRI VINCENT During your visit today, we recorded the following information about you: Torri Vincent RN 09/14/2024 4:05 PM Signed [facility]AL ANTI-CANCER AGENTS FOLLOW-UP PHONE CALL/VISIT Patient [...] UP: The next office visit with Dr. Garcia is due on: October 02, 2024 at [...] to call if unable to comply. Torri Vincent RN Allergies As of Date: 09/14/2024 Noted Allergy Reaction FENTANYL 04/01/2018 5 - Intolerance Comments: Drop in RR and drop in pulse ox to 70% ADHESIVE TAPE-SILICONES 07/29/2023 2 - Rash SULFA (SULFONAMIDE ANTIBIOTICS) 03/08/2007 16 - Unknown Date Reviewed: 09/01/2024 Reviewed by: Radha Cabrera MD - Fully Assessed Reason for Visit: Digital Community Manager - Other [3604] Cmt: Follow up oral chemo kisquali Prescriptions as of 09/14/2024 - anastrozole (ARIMIDEX) 1 mg tablet TAKE 1 TABLET BY MOUTH EVERY DAY - Ribociclib 400 mg/day (200 mg X 2) tablets (KISQALI) Take 2 tablets (400 mg) by mouth once daily for 21 days. Then take a 7-day rest period to complete a 28-day treatment cycle. Discard after 60 days from fill date. - prednisoLONE acetate (PRED FORTE) 1 % ophthalmic suspension Use 1 Drop in the right eye as directed. Starting TOMORROW place one drop in operative eye four times a day. - prednisoLONE acetate (PRED FORTE) 1 % ophthalmic suspension Use 1 Drop in the left eye as directed. Starting TOMORROW place one drop in operative eye four times a day. - NAPROXEN ORAL Take by mouth two times a day. - cholecalciferol (VITAMIN D-3) 5,000 unit tab [...] mg by mouth two times a day. Problem List As Of Date 09/14/2024 Noted Resolved SPINAL STENOSIS NOS [M48.00] Mixed [...] Class III, BMI >= 40 [E66.01] 07/29/2023 Stage 3a chronic kidney disease (HCC) [N18.31] 12/24/2023 Multiple thyroid nodules [E04.2] 05/18/2024 Pulmonary embolism (HCC) [I26.99] 11/05/2023 Status post cataract surgery, left [Z98.42] 06/09/2024 Combined forms of age-related cataract of right*06/09/2024 Status post cataract surgery, right [Z98.41] 06/18/2024 Encounter Status:Closed by TORRI VINCENT on 09/14/24 CATRINA Observed: 09/14/2024 12:00 AM Status: COMPLETED Source: [facility] Telephone (RADTSA) YUE CAPUTO ([id number]) 1955 F Date Time Provider Department 09/14/24 Raj FAULKNER During your visit today, we recorded the following information about you: Mikael Jiang RN 09/14/2024 10:26 AM Signed I called and spoke to Yue and she states she is continuing care and treatment with Dr. Garcia monthly. She denies skin changes of the previously treated left chest wall. She continues therapy with the lymphedema clinic. She would like to continue following with Dr. Garcia and will notify our office with any further questions and/or concerns regarding radiation therapy. Mikael Jiang RN Allergies As of Date: 09/14/2024 Noted Allergy Reaction FENTANYL 04/01/2018 5 - Intolerance Comments: Drop in RR and drop in pulse ox to 70% ADHESIVE TAPE-SILICONES 07/29/2023 2 - Rash SULFA (SULFONAMIDE ANTIBIOTICS) 03/08/2007 16 - Unknown Date Reviewed: 09/01/2024 Reviewed by: Radha Cabrera MD - Fully Assessed Reason for Visit: Patient Update [1234] Prescriptions as of 09/21/2024 - anastrozole (ARIMIDEX) 1 mg tablet TAKE 1 TABLET BY MOUTH EVERY DAY - Ribociclib 400 mg/day (200 mg X 2) tablets (KISQALI) Take 2 tablets (400 mg) by mouth once daily for 21 days. Then take a 7-day rest period to complete a 28-day treatment cycle. Discard after 60 days from fill date. - prednisoLONE acetate (PRED FORTE) 1 % ophthalmic suspension Use 1 Drop in the right eye as directed. Starting TOMORROW place one drop in operative eye four times a day. - prednisoLONE acetate (PRED FORTE) 1 % ophthalmic suspension Use 1 Drop in the left eye as directed. Starting TOMORROW place one drop in operative eye four times a day. - NAPROXEN ORAL Take by mouth two times a day. - cholecalciferol (VITAMIN D-3) 5,000 unit tab [...] mg by mouth two times a day. Problem List As Of Date 09/14/2024 Noted Resolved SPINAL STENOSIS NOS [M48.00] Mixed [...] Class III, BMI >= 40 [E66.01] 07/29/2023 Stage 3a chronic kidney disease (HCC) [N18.31] 12/24/2023 Multiple thyroid nodules [E04.2] 05/18/2024 Pulmonary embolism (HCC) [I26.99] 11/05/2023 Status post cataract surgery, left [Z98.42] 06/09/2024 Combined forms of age-related cataract of right*06/09/2024 Status post cataract surgery, right [Z98.41] 06/18/2024 Encounter Status:Closed by MIKAEL JIANG on 09/21/24 CBC W AUTO DIFF BLD Collected: 09/11/2024 9:[address] atus: F Source: [facility] Order Comment: Specimen Type : BLOOD SPECIMEN Ordering Facility: [facility] Address: [address] [place] [address] TYPE CODE TESTS RESULT OUT OF RANGE REFERENCE UNITS LAB 6690-2([facility]) WBC # Bld Auto 6.04 3.70-11.00 k/uL LAB 789-8([facility]) RBC # Bld Auto 3.67 Low 3.90-5.20 m/ uL LAB 718-7([facility]) Hgb Bld-mCnc 11.6 11.5-15.5 g/dL LAB 4544-3([facility]) Hct VFr Bld Auto 35.4 Low 36.0-46.0 % LAB 787-2([facility]) MCV RBC Auto 96.5 80.0-100.0 fL LAB 785-6([facility]) MCH RBC Qn Auto 31.6 26.0-34.0 p g LAB 786-4([facility]) MCHC RBC Auto-mCnc 32.8 30.5-36.0 g/dL LAB 74907-1([facility]) RDW RBC-Rto 13.6 11.5-15.0 % LAB 777-3([facility]) Platelet # Bld Auto 368 150-400 k/uL LAB 78900-3([facility]) PMV Bld Auto 8.8 Low 9.0-12.7 fL LAB 770-8([facility]) Neutrophils/leuk NFr Bld Auto 72.3 % LAB 751-8([facility]) Neutrophils # Bld Auto 4.37 1.45-7.50 k/uL LAB 736-9([facility]) Lymphocytes/leuk NFr Bld Auto 13.2 % LAB 731-0([facility]) Lymphocytes # Bld Auto 0.80 Low 1.00-4.00 k/uL LAB 5905-5([facility]) Monocytes/leuk NFr Bld Auto 4.8 % LAB 742-7([facility]) Monocytes # Bld Auto 0.29 <0.87 k/uL LAB 713-8([facility]) Eosinophil/leuk NFr Bld Auto 8.8 % LAB 711-2([facility]) Eosinophil # Bld Auto 0.53 High <0.46 k/uL LAB 706-2([facility]) Basophils/leuk NFr Bld Auto 0.7 % LAB 704-7([facility]) Basophils # Bld Auto 0.04 <0.11 k/uL LAB 35480-1([facility]) Imm Granulocytes/tanisha k NFr Bld Auto 0.2 % LAB 70915-5([facility]) Imm Granulocytes # Bld Auto <0.03 <0.10 k/uL LAB 26578-4([facility]) nRBC/100 WBC Bld-Rto 0.0 /100 WBC LAB 771-6([facility]) nRBC # Bld Auto <0.01 <0.01 k/u L LAB 34286-0([facility]) Differential method Bld Auto Performed By: #### 31264-9 # ### [facility] CLIA [id number] [address] [place] [address] COMP METAB 2000 PNL SERPL Collected: 9:24 AM Status: F Source: [facility] Order Comment: Specimen Type : BLOOD SPECIMEN Ordering Facility: [facility] Address: [address] [place] [address] TYPE CODE TESTS RESULT OUT OF RANGE REFERENCE UNITS LAB 2885-2([facility]) Prot SerPl-mCnc 6.7 6.3-8.0 g/dL Result Comment: Result reche cked. LAB 1751-7([facility]) Albumin SerPl-mCnc 3.9 3.9-4.9 g/dL LAB 17785-3([facility]) Calcium SerPl-mCnc 9.3 8.5-10.2 mg/dL LAB 1975-2([facility]) Bilirub SerPl-mCnc 0.5 0.2-1.3 mg/dL LAB 6768-6(LOINC) ALP SerPl-cCnc 94 34-123 U/L LAB 1920-8(LOINC) AST SerPl-cCnc 22 13-35 U/L LAB 1742-6(LOINC) ALT SerPl-cCnc 15 7-38 U/L LAB 2345-7(LOINC) Glucose SerPl-mCnc 173 High 74-99 mg/dL Result Comment: The [place] Diabetes Association (ADA) provides [...] [place] Diabetes Association. Diabetes Care. 2016.39(Suppl 1). LAB 3094-0(LOINC) BUN SerPl-mCnc 25 High 7-21 mg/ dL LAB 2160-0(LOINC) Creat SerPl-mCnc 1.74 High 0.58-0.96 mg/dL LAB 2951-2(LOINC) Sodium SerPl-sCnc 140 136-144 mmol/L LAB 2823-3(LOINC) Potassium SerPl-sCnc 4.8 3.7-5.1 mmol/L LAB 2075-0(LOINC) Chloride SerPl-sCnc 102 98-107 mmol/L LAB 2028-9(LOINC) CO2 SerPl-sCnc 22 22-30 mmo l/L LAB 41985-0(LOINC) Anion Gap SerPl-sCnc 16 High 8-15 mmol/L LAB 83127-1(LOINC) Creatinine + eGFR Pnl SerPlBld 31 Low >=60 mL/min/1 .73m??? Result Comment: Estimated Gl omerular Filtration Rate (eGFR) is calculated using the 2020 CKD-EPI creatinine equation. This equation utilizes serum creatinine, sex, and age as parameters. The creatinine assay has traceable calibration to isotope dilution-mass spectrometry. Refer to KDIGO guidelines for clinical interpretation. In patients with unstable renal function, e.g. those with acute kidney injury, the eGFR may not accurately reflect actual GFR. Performed By: #### 10383-4 # ### [facility] CLIA [id number] [address] [place] [address] CNCO Observed: 09/09/2024 12:00 AM Status: COMPLETED Source: [facility] Letter Text CNPN Observed: 09/02/2024 12:00 AM Status: COMPLETED Source: [facility] Telephone (HEMAVN) YUE CAPUTO ([id number]) 1955 F Date Time Provider Department 09/02/24 NIA ARIAS During your visit today, we recorded the following information about you: Nia Arias RN 09/02/2024 4:53 PM Signed ----- Message from Maria A Garcia MD sent at 09/02/2024 4:39 PM EST ----- Call with Nia Cisse RN 09/02/2024 4:55 PM Signed Spoke with patient regarding provider message-voices understanding and appreciative of call. Nia Arias, MALORIE 09/07/2024 3:27 PM Signed Pt calling back-would like port draw 09/11 in [place] and fax bone density orders to [facility] at fax: [phone] faxed as directed. Ailyn Baron 09/07/2024 3:41 PM Signed Spoke to Yue scheduled lab draw on SaturdaySep 11 at 915. Allergies As of Date: 09/02/2024 Noted Allergy Reaction FENTANYL 04/01/2018 5 - Intolerance Comments: Drop in RR and drop in pulse ox to 70% ADHESIVE TAPE-SILICONES 07/29/2023 2 - Rash SULFA (SULFONAMIDE ANTIBIOTICS) 03/08/2007 16 - Unknown Date Reviewed: 09/01/2024 Reviewed by: Radha Cabrera MD - Fully Assessed Reason for Visit: Results, Lab [1201] Prescriptions as of 09/07/2024 - anastrozole (ARIMIDEX) 1 mg tablet TAKE 1 TABLET BY MOUTH EVERY DAY - Ribociclib 400 mg/day (200 mg X 2) tablets (KISQALI) Take 2 tablets (400 mg) by mouth once daily for 21 days. Then take a 7-day rest period to complete a 28-day treatment cycle. Discard after 60 days from fill date. - prednisoLONE acetate (PRED FORTE) 1 % ophthalmic suspension Use 1 Drop in the right eye as directed. Starting TOMORROW place one drop in operative eye four times a day. - prednisoLONE acetate (PRED FORTE) 1 % ophthalmic suspension Use 1 Drop in the left eye as directed. Starting TOMORROW place one drop in operative eye four times a day. - NAPROXEN ORAL Take by mouth two times a day. - cholecalciferol (VITAMIN D-3) 5,000 unit tab [...] mg by mouth two times a day. Problem List As Of Date 09/02/2024 Noted Resolved SPINAL STENOSIS NOS [M48.00] Mixed [...] Class III, BMI >= 40 [E66.01] 07/29/2023 Stage 3a chronic kidney disease (HCC) [N18.31] 12/24/2023 Multiple thyroid nodules [E04.2] 05/18/2024 Pulmonary embolism (HCC) [I26.99] 11/05/2023 Status post cataract surgery, left [Z98.42] 06/09/2024 Combined forms of age-related cataract of right*06/09/2024 Status post cataract surgery, right [Z98.41] 06/18/2024 Encounter Status:Closed by NIA ARIAS on 09/02/24 US FINE NEEDLE ASPIRATION Observed: 02/2025 1:08 PM Status: F Source: [facility] * * *Final Report* * * DATE OF EXAM: Sep 01 2024 1:08PM [facility] 1249 - US FINE NEEDLE ASPIRATION / [...] the patient as documented. Medication reconciliation: Done Sintia-procedure discussion: The appropriate elements of the pre-procedure [...] performed by the: attending radiologist, without an administrative library assistant. The attending radiologist performed the following procedural activities: Entire procedure IMPRESSION: Image-guided fine-needle aspiration of RIGHT mid thyroid nodule. Plan: Specimen(s) sent for evaluation. ATTESTATION: Signer name: Radha Cabrera I attest that I was present for the entire procedure. I reviewed the stored images and agree with the report as written. Vascular Neurologist: PSCB Transcribe Date/Time: Sep 01 2024 1:09P Dictated by : RADHA CABRERA MD This examination was interpreted and the report reviewed and electronically signed by: RADHA CABRERA MD on Sep 01 2024 1:11PM EST [id number] OP NOT Observed: 09/01/2024 12:57 PM Status: COMPLETED Source: [facility] ID: [id number] Author: RADHA CABRERA MD Service: Radiology Author Type: Physician Type: Brief Op Note Filed: 09/01/2024 12:58 Note Text: BRIEF OPERATIVE / PROCEDURE NOTE LOG ID: [id number] SURGERY/PROCEDURE DATE: 09/01/2024 INCISION/PROCEDURE START TIME: 12:47 PM INCISION CLOSE/PROCEDURE END TIME: 12:54 PM SURGEON(S)/PROCEDURALIST(S) AND TAKER OFF DRYING KILN(S): Surgeons and Role: * Radha Cabrera MD [...] Preop SIGNATURE: Radha Cabrera MD PATIENT NAME: Yue Caputo DATE: September 01, 2024 TIME: 12:57 PM CYTOLOGY NON-COLD MILL INSPECTOR Collected: 12:49 PM Status: F Source: [facility] Order Comment: Specimen Type : SPECIMEN OBTAINED BY ASPIRATION Ordering Facility: [facility] Address: [address] [place] [address] TYPE CODE TESTS RESULT OUT OF RANGE REFERENCE UNITS PATHOLOGY [id number] CASE REPORT Result Comment: Medical Cyto logy Report Case: [id number] Authorizing Provider: Radha Cabrera MD Collected: 09/01/2024 12:49 PM Ordering Location: [facility] Received: 09/01/2024 05:30 PM RADIOLOGY Pathologist: Cash Adler MD Specimen: Thyroid, Right, Lobe, 3.6 RT MID THYROID NODULE PATHOLOGY [id number] FINAL DIAGNOSIS Result Comment: A - Thyroid, Right, Lobe, FNA - 3.6 RT MID THYROID NODULE Benign. Follicular cells and cyst contents. The following cell blocks were associated with this case: A1 Cell Block, Alcohol Fixed OLOGY [id number] GROSS DESCRIPTION Result Comment: A. Thyroid, Right, Lobe 30 cc cloudy red CytoLyt with particles. ThinPrep and Cell Block prepared. Afirma received PATHOLOGY CDX2 CLINICAL HISTORY Afirma received Result Comment: Pre-op diagnosis: Multiple thyroid nodules [E04.2] PATHOLOGY ORDERC ORDER COMMENT Result Comment: Pre-op diagn osis: Multiple thyroid nodules [E04.2] PATHOLOGY FPLAB FINAL PERFORMING LAB Result Comment: Technical co mponent, looseleaf binder coverer screening performed at [facility], [address] [place] [address] CLIA# [id number] Diagnostic interpretation performed at [facility], [address] [place] [address] CLIA# [id number] Gang Sawyer: Juan Garza M.D. Performed By: #### CYTONON # ### [facility] [place] [id number] [address] [place] [address] [place] HISTORY PHYSICAL Observed: 09/01/2024 12:37 PM Status: COMPLETED Source: [facility] HNO ID: [id number] Author: RADHA CABRERA MD Service: Radiology Author [...] n/a SIGNATURE: Radha Cabrera MD PATIENT NAME: Yue Caputo DATE: September 01, 2024 TIME: 12:37 PM PROGRESS Observed: 09/01/2024 9:47 AM Status: COMPLETED Source: [facility] HNO ID: [id number] Author: NIA ARIAS RN Service: ? Author Type: Registered Nurse Type: Progress Notes Filed: 09/01/2024 10:42 Note Text: ORAL ANTI-CANCER AGENTS EDUCATION patient called today [...] medication 09/01/24 thyroid biopsy 09/[address] Garcia-reviewed with provider in office-ok to move 3 weeks due to start date Cycle #09/07-10/01 10/[address] Garcia with labs day prior Nai Arias RN CNCNPATED Observed: 09/01/2024 12:00 AM Status: COMPLETED Source: [facility] Education (HEMAVN) YUE CAPUTO ([id number]) 1955 F Date Time Provider Department 09/01/24 NIA ARIAS Reason for Visit: Oral Anti-cancer Agent Education [3227] Cmt: Dalia During your visit today, we recorded the following information about you: Allergies As of Date: 09/01/2024 Noted Allergy Reaction FENTANYL 04/01/2018 5 - Intolerance Comments: Drop in RR and drop in pulse ox to 70% ADHESIVE TAPE-SILICONES 07/29/2023 2 - Rash SULFA (SULFONAMIDE ANTIBIOTICS) 03/08/2007 16 - Unknown Date Reviewed: 09/01/2024 Reviewed by: Radha Cabrera MD - Fully Assessed Prescriptions as of 09/14/2024 - anastrozole (ARIMIDEX) 1 mg tablet TAKE 1 TABLET BY MOUTH EVERY DAY - Ribociclib 400 mg/day (200 mg X 2) tablets (HAYLEESQALI) Take 2 tablets (400 mg) by mouth once daily for 21 days. Then take a 7-day rest period to complete a 28-day treatment cycle. Discard after 60 days from fill date. - prednisoLONE acetate (PRED FORTE) 1 % ophthalmic suspension Use 1 Drop in the right eye as directed. Starting TOMORROW place one drop in operative eye four times a day. - prednisoLONE acetate (PRED FORTE) 1 % ophthalmic suspension Use 1 Drop in the left eye as directed. Starting TOMORROW place one drop in operative eye four times a day. - NAPROXEN ORAL Take by mouth two times a day. - cholecalciferol (VITAMIN D-3) 5,000 unit tab [...] mg by mouth two times a day. Encounter Status:Closed by NIA ARIAS on 09/01/24 PROGRESS Observed: 08/12/2024 1:12 PM Status: COMPLETED Source: [facility] HNO ID: [id number] Author: BARBARA PHELAN MA Service: ? Author Type: Non Categorical Preschool Teacher Type: Progress Notes Filed: 08/12/2024 13:14 Note Text: Patient appt canceled Patient scheduled incorrectly. Rescheduled with IR CNOV Observed: 08/12/2024 1:00 PM Status: COMPLETED Source: [facility] Office Visit (ENDOLN) YUE CAPUTO ([id number]) 1955 F Date Time Provider Department 08/12/24 1:00 PM SANDY MCGREGOR ENDOLN During your visit today, we recorded the following information about you: Barbara Phelan MA 08/12/2024 1:14 PM Signed Patient appt canceled Patient scheduled incorrectly. Rescheduled with IR Referring Provider: SANDY MCGREGOR [[id number]] Allergies As of Date: 08/12/2024 Noted Allergy Reaction FENTANYL 04/01/2018 5 - Intolerance Comments: Drop in RR and drop in pulse ox to 70% ADHESIVE TAPE-SILICONES 07/29/2023 2 - Rash SULFA (SULFONAMIDE ANTIBIOTICS) 03/08/2007 16 - Unknown Date Reviewed: 08/12/2024 Reviewed by: Barbara Phelan MA - Fully Assessed Reason for Visit: Appointment Cancelled [1023] Primary Visit Diagnosis:Multiple thyroid nodules [E04.2] Prescriptions as of 08/12/2024 - anastrozole (ARIMIDEX) 1 mg tablet TAKE 1 TABLET BY MOUTH EVERY DAY - Ribociclib 400 mg/day (200 mg X 2) tablets (KISQALI) Take 2 tablets (400 mg) by mouth once daily for 21 days. Then take a 7-day rest period to complete a 28-day treatment cycle. Discard after 60 days from fill date. - prednisoLONE acetate (PRED FORTE) 1 % ophthalmic suspension Use 1 Drop in the right eye as directed. Starting TOMORROW place one drop in operative eye four times a day. - prednisoLONE acetate (PRED FORTE) 1 % ophthalmic suspension Use 1 Drop in the left eye as directed. Starting TOMORROW place one drop in operative eye four times a day. - NAPROXEN ORAL Take by mouth two times a day. - cholecalciferol (VITAMIN D-3) 5,000 unit tab [...] mg by mouth two times a day. Problem List As Of Date 08/12/2024 Noted Resolved SPINAL STENOSIS NOS [M48.00] Mixed [...] bilateral [Z96.653] 05/19/2018 AF (paroxysmal atrial fibrillation) ([facility]) [I48.*12/08/2021 03/14/2022 Right arm weakness [R29.898] 03/14/2022 [...] Class III, BMI >= 40 [E66.01] 07/29/2023 Stage 3a chronic kidney disease (HCC) [N18.31] 12/24/2023 Multiple thyroid nodules [E04.2] 05/18/2024 Pulmonary embolism (HCC) [I26.99] 11/05/2023 Status post cataract surgery, left [Z98.42] 06/09/2024 Combined forms of age-related cataract of right*06/09/2024 Status post cataract surgery, right [Z98.41] 06/18/2024 Encounter Status:Closed by BARBARA PHELAN on 08/12/24 CATRINA Observed: 07/20/2024 12:00 AM Status: COMPLETED Source: [facility] Telephone (ENDOLN) YUE CAPUTO ([id number]) 1955 F Date Time Provider Department 07/20/24 SANDY MCGREGOR ENDOLN During your visit today, we recorded the following information about you: Barbara Phelan MA 07/20/2024 4:12 PM Signed FINAL DIAGNOSIS A - Thyroid, Right Lobe, Fine Needle Aspirate - Mid Non-diagnostic aspirate sample. Insufficient thyroid follicular epithelial cells present for evaluation. FNA done on 07/15 Sandy Mcgregor MD, PhD 07/24/2024 1:24 PM Signed The FNA result was inconclusive. Repeat FNA in IR after about 1 month is recommended. Order placed. Please assist patient to schedule. Barbara Phelan MA 07/24/2024 4:27 PM Signed Called and spoke with patient Below msg reviewed with patient Please contact pt to schedule Thanks Ny Lagos 07/30/2024 11:37 AM Signed Called and spoke to patient. [facility] 08/12/24 Barbara Phelan MA 08/12/2024 1:15 PM Signed Please assist patient with scheduling thyroid bx in IR Thanks Aryan Walker 08/12/2024 2:03 PM Signed Pt Sent to IR schedulers Allergies As of Date: 07/20/2024 Noted Allergy Reaction FENTANYL 04/01/2018 5 - Intolerance Comments: Drop in RR and drop in pulse ox to 70% ADHESIVE TAPE-SILICONES 07/29/2023 2 - Rash SULFA (SULFONAMIDE ANTIBIOTICS) 03/08/2007 16 - Unknown Date Reviewed: 07/16/2024 Reviewed by: Maria A Garcia MD - Fully Assessed Reason for Visit: Results [95] Primary Visit Diagnosis:Multiple thyroid nodules [E04.2] Order(s):IMAGING GUIDED BIOPSY THYROID [[id number]] Order #: [id number] Prescriptions as of 08/12/2024 - anastrozole (ARIMIDEX) 1 mg tablet TAKE 1 TABLET BY MOUTH EVERY DAY - Ribociclib 400 mg/day (200 mg X 2) tablets (KISQALI) Take 2 tablets (400 mg) by mouth once daily for 21 days. Then take a 7-day rest period to complete a 28-day treatment cycle. Discard after 60 days from fill date. - prednisoLONE acetate (PRED FORTE) 1 % ophthalmic suspension Use 1 Drop in the right eye as directed. Starting TOMORROW place one drop in operative eye four times a day. - prednisoLONE acetate (PRED FORTE) 1 % ophthalmic suspension Use 1 Drop in the left eye as directed. Starting TOMORROW place one drop in operative eye four times a day. - NAPROXEN ORAL Take by mouth two times a day. - cholecalciferol (VITAMIN D-3) 5,000 unit tab [...] mg by mouth two times a day. Problem List As Of Date 07/20/2024 Noted Resolved SPINAL STENOSIS NOS [M48.00] Mixed [...] Class III, BMI >= 40 [E66.01] 07/29/2023 Stage 3a chronic kidney disease (HCC) [N18.31] 12/24/2023 Multiple thyroid nodules [E04.2] 05/18/2024 Pulmonary embolism (HCC) [I26.99] 11/05/2023 Status post cataract surgery, left [Z98.42] 06/09/2024 Combined forms of age-related cataract of right*06/09/2024 Status post cataract surgery, right [Z98.41] 06/18/2024 Encounter Status:Closed by NY LAGOS on 07/30/24 PROGRESS Observed: 07/17/2024 10:29 AM Status: COMPLETED Source: [facility] HNO ID: [id number] Author: VIKY JOHNS MA Service: ? Author Type: Non Categorical Preschool Teacher Type: Progress Notes Filed: 07/17/2024 10:31 Note Text: Patient identified by 2 identifiers. EKG performed as ordered. Viky Johns MA CNNURSE Observed: 07/17/2024 9:15 AM Status: COMPLETED Source: [facility] Nurse Visit (HEMASA) YUE CAPUTO ([id number]) 1955 F Date Time Provider Department 07/17/24 9:15 AM MA NURSE [place] SAND HEMASA During your visit today, we recorded the following information about you: Viky Johns MA 07/17/2024 10:31 AM Signed Patient identified by 2 identifiers. EKG performed as ordered. Viky Johns MA Referring Provider: MARIA A GARCIA [[id number]] Allergies As of Date: 07/17/2024 Noted Allergy Reaction FENTANYL 04/01/2018 5 - Intolerance Comments: Drop in RR and drop in pulse ox to 70% ADHESIVE TAPE-SILICONES 07/29/2023 2 - Rash SULFA (SULFONAMIDE ANTIBIOTICS) 03/08/2007 16 - Unknown Date Reviewed: 07/16/2024 Reviewed by: Maria A Garcia MD - Fully Assessed Visit Diagnosis:Pre-op testing [Z01.818] Order(s):ECG COMPLETE [ECG01] Order #: [id number]. #:[id number]--[id number] Prescriptions as of 07/17/2024 - Ribociclib 400 mg/day (200 mg X 2) tablets (KISQALI) Take 2 tablets (400 mg) by mouth once daily for 21 days. Then take a 7-day rest period to complete a 28-day treatment cycle. Discard after 60 days from fill date. - prednisoLONE acetate (PRED FORTE) 1 % ophthalmic suspension Use 1 Drop in the right eye as directed. Starting TOMORROW place one drop in operative eye four times a day. - prednisoLONE acetate (PRED FORTE) 1 % ophthalmic suspension Use 1 Drop in the left eye as directed. Starting TOMORROW place one drop in operative eye four times a day. - anastrozole (ARIMIDEX) 1 mg tablet Take 1 tablet by mouth once daily. - NAPROXEN ORAL Take by mouth two times a day. - cholecalciferol (VITAMIN D-3) 5,000 unit tab [...] mg by mouth two times a day. Problem List As Of Date 07/17/2024 Noted Resolved SPINAL STENOSIS NOS [M48.00] Mixed [...] bilateral [Z96.653] 05/19/2018 AF (paroxysmal atrial fibrillation) ([facility]) [I48.*12/08/2021 03/14/2022 Right arm weakness [R29.898] 03/14/2022 [...] Class III, BMI >= 40 [E66.01] 07/29/2023 Stage 3a chronic kidney disease (HCC) [N18.31] 12/24/2023 Multiple thyroid nodules [E04.2] 05/18/2024 Pulmonary embolism (HCC) [I26.99] 11/05/2023 Status post cataract surgery, left [Z98.42] 06/09/2024 Combined forms of age-related cataract of right*06/09/2024 Status post cataract surgery, right [Z98.41] 06/18/2024 Encounter Status:Closed by VIKY JOHNS on 07/17/24 PROGRESS Observed: 07/16/2024 3:30 PM Status: COMPLETED Source: [facility] HNO ID: [id number] Author: ?, ?, ? Service: ? Author Type: ? Type: Progress Notes Filed: 07/16/2024 15:32 Note Text: [facility] received prescription(s) for Kisqali from Dr. Garcia's office. Benefits investigation was conducted, indicating that a prior authorization is required by patient's insurance plan with [employer]. Encounter will be updated once prior authorization has been submitted by [facility]. Halle Serrato CPhT [facility], Oncology P: / F: PROGRESS Observed: 07/16/2024 3:30 PM Status: COMPLETED Source: [facility] HNO ID: [id number] Author: CHIDI HORTA RPh Service: ? Author Type: Pharmacist Type: Progress Notes Filed: 08/28/2024 12:16 Note Text: [facility] received prescription(s) for Kisqali from Jose's office. Benefits investigation was conducted, indicating that a prior authorization is required. RAMESH was approved with details listed below. Plan Name: [employer] Phone/Fax: / RAMESH reference number: RAMESH Approval Dates: Per claim, approved ON APPEAL through 08/25/2099 Prescriptions will now be processed through [facility] for determination of next steps. Addendum July 27, 2024 5:01 PM : The first copay is high ~$2,553.09 due to the different phases of the patient's traditional Medicare part D plan. After this fill patient has reached their catastrophic coverage phase, and it is expected his/her copays will be $0 thereafter. There is no funding available for patients diagnosis at this time. Patient will be referred to [employer] Online Assistance Program. Note will be update once pt is contacted. Suzanne Gongora [facility] PharmD, BCPS Clinical Pharmacist, Oncology [facility] P: , F: Pool: P [facility] Pool #: [id number] Addendum August 28, 2024 12:15 PM : Bryce funding became available and was obtained for pt. She was approved for $15,000 [employer] bryce that will cover the entirety of her $2000 MOOP. Note will be updated once pt is contacted. Chidi Horta RPh PROGRESS Observed: 07/16/2024 3:30 PM Status: COMPLETED Source: [facility] HNO ID: [id number] Author: CHIDI HORTA RPh Service: ? Author Type: Pharmacist Type: Progress Notes Filed: 08/28/2024 13:32 Note Text: [facility] received prescription(s) for kisqali from Dr. Garcia's office. Benefits investigation was conducted, indicating that a prior authorization is required. RAMESH was approved on appeal with details listed below: Plan Name: Joan RAMESH reference number: RAMESH Approval Dates: through 08/25/2099 Pt's copay is $0 (bryce applied). Shipment has been arranged, and pt will receive medication(s) on 09/01/24. Pt has been instructed to follow-up with clinic to confirm start date. A full drug interaction report was conducted, and identified: [C] Atorvastatin: ribociclib may increase the serum concentration of atorvastatin - monitor for increased adverse effects (myopathy, rhabdomyolysis) - pt/MD aware I reviewed with Yue appropriate dose and dosing frequency, administration directions (Take 2 tablets (400 mg) by mouth once daily for 21 days. Then take a 7-day rest period to complete a 28-day treatment cycle. Discard after 60 days from fill date. Take with or without food at the same time each day, preferably in the morning.), potential side effects, ability to self-administer and proper storage and handling requirements. She expressed understanding of the information we provided today, and received our contact information for the pharmacy if she had any other questions. Office/provider notes have been reviewed prior to dispensing the medication. PAST MEDICAL HISTORY Diagnosis Date Atrial fibrillation (HCC) Diverticulitis GERD (gastroesophageal reflux disease) Hiatal hernia HLD (hyperlipidemia) HTN (hypertension) Obesity, unspecified Other and unspecified hyperlipidemia Scoliosis Spinal stenosis, unspecified region other than cervical UTI (urinary tract infection) Current Outpatient Medications on File Prior to Visit Medication Sig Ribociclib 400 mg/day (200 mg X 2) [...] facility-administered medications on file prior to visit. ALLERGIES Allergen Reactions Fentanyl Intolerance Drop in RR and drop in pulse ox to 70% Adhesive Tape-Silic* Rash Sulfa (Sulfonamide * Unknown Problem List Noted Noted By Resolved Resolved By Status post cataract surgery, right 06/18/2024 Rakesh Bruner, OD No Status post cataract surgery, left 06/09/2024 Rakesh Bruner R, OD No Combined forms of age-related cataract of right eye 06/09/2024 Rakesh Bruner R, OD No Multiple thyroid nodules 05/18/2024 Mary Lou Singh, SALES AND MARKETING MANAGER.COP EXAMINER No Stage 3a chronic kidney disease (HCC) 12/24/2023 Maria A Garcia MD No Pulmonary embolism (HCC) 11/05/2023 Mary Lou Singh, SALES AND MARKETING MANAGER.COP EXAMINER No Obesity, Class III, BMI >= 40 07/29/2023 Stacy Hooker MD No RA (rheumatoid arthritis) (HCC) 07/26/2023 Maria M Mari, SALES AND MARKETING MANAGER.COP EXAMINER No Invasive lobular carcinoma of breast in female ([facility]) 07/23/2023 Mendoza Yang MD No Palpitations 02/05/2023 John Dc MD No Primary hypertension 01/31/2023 Berenice Jordan, SALES AND MARKETING MANAGER.COP EXAMINER No PETERSON (dyspnea on exertion) 01/31/2023 Berenice Jordan SALES AND MARKETING MANAGER.COP EXAMINER No Edema 01/31/2023 Berenice Jordan, SALES AND MARKETING MANAGER.COP EXAMINER No Right arm weakness 03/14/2022 Nikko Ricardo, DO No COPD (chronic obstructive pulmonary disease) ([facility]) 03/14/2022 Nikko Ricardo, DO No GERD (gastroesophageal reflux disease) 03/14/2022 Nikko Ricardo, DO No H/O total knee replacement, bilateral 05/19/2018 Poornima Mcknight RN No Acute post-operative pain 04/21/2018 Sheila Trevino MD No S/P TKR (total knee replacement) using cement, bilateral 04/21/2018 Sheila Trevino MD No OA (osteoarthritis) of knee 03/31/2018 David Allred PA-C No Arthritis of both knees 02/24/2018 Poornima Mcknight RN No Overview Signed 02/24/2018 5:03 PM by Poornima Mcknight (Ball Maker), RUG HOOKER HAND Added automatically from request for surgery [id number] Primary osteoarthritis of both knees 12/23/2017 Rakesh Bliss MD No Morbid obesity (HCC) 12/23/2017 Rakesh Bliss MD No Idiopathic scoliosis and kyphoscoliosis 12/16/2007 James Baker MD No Disorder of mitral valve 05/08/2007 Wei Mccormack MD No Undiagnosed cardiac murmurs 05/06/2007 Wei Mccormack MD No Spinal stenosis, unspecified region other than cervical Wei Mccormack MD No Mixed hyperlipidemia Wei Mccormack MD No Obesity, unspecified Wei Mccormack MD No Atrial tachycardia, paroxysmal (HCC) 03/14/2022 Nikko Ricardo, DO 02/05/2023 John Dc MD Hypertensive urgency 03/14/2022 Nikko Ricardo, DO 03/15/2022 Virgilio Zheng MD AF (paroxysmal atrial fibrillation) (HCC) 12/08/2021 John Dc MD 03/14/2022 Nikko Ricardo DO Retail Cashier Associate Assessment Patient confirmed: Yes Med/dose confirmed: Yes Supplies needed: Welcome packet Missed doses: (NA) Estimated days supply on hand: 0 Next cycle/dose due: (Per Dr. Garcia's discretion) Copay amount: 1999 Copay form of payment: (Bryce) Payment confirmed: Yes Delivery method: FedEx Signature required: Waived on patient request Delivery address: [address] [place] [address] (leave at front door)[place] [address] Delivery date: 09/01/24 Questions or concerns for the pharmacist?: Yes Patient questions/concerns: Medication cost, Co-pay/assistance programs, Medication dose, Medication route, Medication storage, Delivery, Side effects Did you have any side effects believed to be related to this medication, that resulted in hospitalization?: (NA) [facility] CLINICAL ASSESSMENT - HEMATOLOGY ONCOLOGY V6: Ivent complete: No Assessment to use: Initial testing and baseline labs: Yes Reviewed supportive care medication appropriateness based on emetogenic risk of therapy: Yes Counseling on intended outcome of therapy: Therapeutic intent Reviewed intended chemotherapy cycling and dosing regimen: Yes Patient device teaching: N/A Diagnosis: Yes Prior therapy and current medication list (including drug interaction assessment): Yes Comorbidities: Yes Medical history: Yes Ability to properly self-adminster medication: Yes Therapeutic goals based on possible outcomes of therapy: Yes Does the patient have any additional functional limitations, dietary needs, or safety measures?: No Date of influenza vaccination reminder: 08/28/2024 Date of most recent vaccination assessment: 08/28/2024 Treatment Plan Information: Diagnosis: T3, N3, M0, invasive lobular carcinoma, grade 2, ER 80%, OK 5% and HER2/akash negative, IHC 0 Previous [...] discretion Est. Estimated Treatment Duration: 3 years Chidi Horta, PharmD Clinical Pharmacist, Oncology [facility] P: , F: Pool: P [facility] Pool #: [id number] PROGRESS Observed: 07/16/2024 3:30 PM Status: COMPLETED Source: [facility] HNO ID: [id number] Author: ?, ?, ? Service: ? Author Type: ? Type: Progress Notes Filed: 08/28/2024 12:03 Note Text: Patient has been enrolled in a new $15,000 bryce for Dx: Breast Cancer through [employer] 07/29/24 to 07/28/25. Halle Serrato CPhT [facility], Oncology P: / F: PROGRESS Observed: 07/16/2024 3:30 PM Status: COMPLETED Source: [facility] HNO ID: [id number] Author: MALINI LONDON, MALORIE Service: ? 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 The records your doctor provided did not show you met any requirements. Expedited appeal submitted on behalf of Dr. Garcia with a letter of medical necessity and pertinent clinical documentation via fax to # Note will be updated accordingly. Discussed with Muna Fox, PharmD, Suzanne Gongora, PharmD and Chidi Horta, PharmD. Malini London RN PROGRESS Observed: 07/16/2024 3:30 PM Status: COMPLETED Source: [facility] HNO ID: [id number] Author: ?, ?, ? Service: ? Author Type: ? Type: Progress Notes Filed: 08/11/2024 07:19 Note Text: Completed application for free Kisqali submitted to [facility] via fax #[phone] for review. Estimated turnaround for review of the application (7-10 business days). [facility] will update encounter with any direct updates received from the program. Halle Serrato PROGRESS Observed: 07/16/2024 3:30 PM Status: COMPLETED Source: [facility] HNO ID: [id number] Author: MALINI LONDON RN Service: ? Author Type: Registered Nurse Type: Progress Notes Filed: 07/21/2024 12:43 Note Text: [facility] received prescription(s) for kisqali from Dr. Garcia's office. Benefits investigation was conducted, indicating that a prior authorization is required by pt's plan with [employer]. Before the PA can be submitted, the following must be completed: reply from Dr. Garcia to clarify patient diagnosis early stage disease, staff message sent to provider. Please notify [facility] once everything has been completed to proceed with submission of prior authorization to the plan. Thank you! Malini London RN PROGRESS Observed: 07/16/2024 3:30 PM Status: COMPLETED Source: [facility] HNO ID: [id number] Author: MALINI LONDON RN Service: ? Author Type: Registered Nurse Type: Progress Notes Filed: 07/21/2024 19:52 Note Text: [facility] received prescription(s) for kisqali from Dr. Garcia's office. Benefits investigation was conducted, indicating that a prior authorization is required. PA was initiated and pending review. Plan Name: [employer] Plan Agent/Barnes: prior authorization submitted through [employer] portal Phone/Fax: Case: RAMESH Timeline: expedited request pending clinical review Malini London RN PROGRESS Observed: 07/16/2024 3:30 PM Status: COMPLETED Source: [facility] HNO ID: [id number] Author: ?, ?, ? Service: ? Author Type: ? Type: Progress Notes Filed: 07/22/2024 14:55 Note Text: [facility] received prescription(s) for Kisqali from Dr Garcia's office. Benefits investigation was conducted, indicating that a prior authorization is required. PA was denied with details listed below. Plan Name: [employer] Plan Agent/Barnes: prior authorization submitted through [employer] portal Phone/Fax: Case: RAMESH Denial reason: Member has recurrent or metastatic hormone receptor (HR) positive and/or progesterone receptor positive (OK+) disease...the records your doctor gave us did not show you met any of the requirements. Full denial letter has been scanned into patients chart. [facility] will review and assess if appeal is appropriate. Note will be updated accordingly. Nell Urbina [facility] Oncology P: [phone] F: [phone] [email or web address] PROGRESS Observed: 07/16/2024 9:05 AM Status: COMPLETED Source: [facility] HNO ID: [id number] Author: MARIA A GARCIA MD Service: ? Author Type: Physician Type: Progress Notes Filed: 07/16/2024 13:44 Note Text: PATIENT NAME: Yue Caputo CLINIC NO.: [id number] ATTENDING PHYSICIAN: Maria A Garcia MD DATE OF SERVICE: July 16, 2024 Some of the elements of this note have been copied from my previous progress note dated 06/03/2024. All the information has been reviewed carefully. Dear Dr. Mendoza Yang here is an update on a follow up visit on female Yue Caputo at the clinic July 16, 2024 [...] of 28 days started June 2020 HPI: Yue Caputo is a 68 year old year [...] elected to transfer her care to the [facility] and underwent a L breast mastectomy [...] (127.3kg) SpO2 99% LMP 08/26/2006 BMI 51.32 kg/(m2). Wt 125.2 kg (276 lb 0.3 oz) [...] Range Status 07/06/2024 4.5 % Final Abs [place] Date Value Ref Range Status 07/06/2024 0.25 [...] Examined (sentinel and non-sentinel) 4 Number of [place] Nodes Examined 4 pTNM CLASSIFICATION (AJCC 8th Edition) Reporting of pT, pN, and (when applicable) pM categories is based on information available to the pathologist at the time the report is issued. As per the AJCC (Chapter 1, 8th Ed.) it is the managing physician?s responsibility to establish the final pathologic stage [...] and US: Negative. Assessment and Plan: Yue Caputo is a 67 year old year [...] Verzenio was started later due to patient administrative library assistant program in late April 2024 at [...] do not hesitate to contact me at [phone]. Maria A Garcia MD Hematology/Medical Oncology [facility] I spent a total of 30 minutes on the date of the service which included preparing to see the patient, [id number]-[id number]-fbel patient care, completing clinical documentation, obtaining and/or reviewing separately obtained history, performing a medically appropriate examination, and counseling and educating the patient/family/caregiver. CC: Flip Jenkins MD CNOVSP Observed: 07/16/2024 8:45 AM Status: COMPLETED Source: [facility] Visit (SP) Office (HEMAVN) YUE CAPUTO ([id number]) 1955 F Date Time Provider Department 07/16/24 8:45 AM MARIA A GARCIA During your visit today, we recorded the following information about you: Temperature Pulse Respiration Blood pressure 98.1 degrees 73/minute 18/minute 121/42 Weight Height 127.3 kg 1.575 m Maria A Garcia MD 07/16/2024 1:44 PM Signed PATIENT NAME: Yue Caputo CLINIC NO.: [id number] ATTENDING PHYSICIAN: Maira A Garcia MD DATE OF SERVICE: July 16, 2024 Some of the elements of this note have been copied from my previous progress note dated 06/03/2024. All the information has been reviewed carefully. Dear Dr. Mendoza Yang here is an update on a follow up visit on female Yue Caputo at the clinic July 16, 2024 [...] of 28 days started June 2020 HPI: Yue Caputo is a 68 year old year [...] elected to transfer her care to the [facility] and underwent a L breast mastectomy [...] (127.3kg) SpO2 99% LMP 08/26/2006 BMI 51.32 kg/(m2). Wt 125.2 kg (276 lb 0.3 oz) [...] Range Status 07/06/2024 4.5 % Final Abs [place] Date Value Ref Range Status 07/06/2024 0.25 [...] Histologic Type Invasive lobular carcinoma Histologic Grade ([place] Histologic Score) Glandular (Acinar) / Tubular Differentiation [...] Examined (sentinel and non-sentinel) 4 Number of [place] Nodes Examined 4 pTNM CLASSIFICATION (AJCC 8th Edition) Reporting of pT, pN, and (when applicable) pM categories is based on information available to the pathologist at the time the report is issued. As per the AJCC (Chapter 1, 8th Ed.) it is the managing physician?s responsibility to establish the final pathologic stage [...] and US: Negative. Assessment and Plan: Yue Caputo is a 67 year old year [...] Verzenio was started later due to patient administrative library assistant program in late April 2024 at [...] do not hesitate to contact me at [phone]. Maria A Garcia MD Hematology/Medical Oncology [facility] I spent a total of 30 minutes on the date of the service which included preparing to see the patient, uxeb-tp-[id number] patient care, completing clinical documentation, obtaining and/or reviewing separately obtained history, performing a medically appropriate examination, and counseling and educating the patient/family/caregiver. CC: Flip Jenkins MD Allen, Crystal, LPN 07/16/2024 9:21 AM Signed Schedule EKG pasha (da) Schedule EKG 1 week after you start Schedule Office visit with Dr Culver in 3 weeks Allergies As of Date: 07/16/2024 Noted Allergy Reaction FENTANYL 04/01/2018 5 - Intolerance Comments: Drop in RR and drop in pulse ox to 70% ADHESIVE TAPE-SILICONES 07/29/2023 2 - Rash SULFA (SULFONAMIDE ANTIBIOTICS) 03/08/2007 16 - Unknown Date Reviewed: 07/16/2024 Reviewed by: Maria A Garcia MD - Fully Assessed Reason for Visit: Established Patient [175] Primary Visit Diagnosis:Invasive lobular carcinoma of breast in female (HCC) [C50.919] Order(s):ECG COMPLETE [ECG01] Order #: [id number] FUTURE Ribociclib 400 mg/day (200 mg X 2) tablets (KISQALI)Take 2 tablets (400 mg) by mouth once daily. Then take a 7-day rest period to complete a 28-day treatment cycle. Discard after 60 days from fill date.Disp: 21 tabletRfl: 3 ECG COMPLETE [ECG01] Order #: [id number] FUTURE COMPLETE BLOOD COUNT AND DIFFERENTIAL [SQCBCDIF] Order #: [id number] FUTURE COMPREHENSIVE METABOLIC PANEL [SQCMP] Order #: [id number] FUTURE Disposition: Return in 3 weeks (on 08/06/2024) for BREAST CA. Follow-up and Disposition History for Encounter Date Provider Department Center 07/16/2024 [id number], KASRA HEMAVN Rej Prescriptions as of 07/16/2024 - Ribociclib 400 mg/day (200 mg X 2) tablets (KISQALI) Take 2 tablets (400 mg) by mouth once daily. Then take a 7-day rest period to complete a 28-day treatment cycle. Discard after 60 days from fill date. - prednisoLONE acetate (PRED FORTE) 1 % ophthalmic suspension Use 1 Drop in the right eye as directed. Starting TOMORROW place one drop in operative eye four times a day. - prednisoLONE acetate (PRED FORTE) 1 % ophthalmic suspension Use 1 Drop in the left eye as directed. Starting TOMORROW place one drop in operative eye four times a day. - anastrozole (ARIMIDEX) 1 mg tablet Take 1 tablet by mouth once daily. - NAPROXEN ORAL Take by mouth two times a day. - cholecalciferol (VITAMIN D-3) 5,000 unit tab [...] mg by mouth two times a day. Medication notes this encounter ABEMACICLIB 100 MG TABLET >> Cinthia Tim LPN 07/16/2024 9:15 AM diarrhea Problem List As Of Date 07/16/2024 Noted Resolved SPINAL STENOSIS NOS [M48.00] Mixed [...] Class III, BMI >= 40 [E66.01] 07/29/2023 Stage 3a chronic kidney disease (HCC) [N18.31] 12/24/2023 Multiple thyroid nodules [E04.2] 05/18/2024 Pulmonary embolism (HCC) [I26.99] 11/05/2023 Status post cataract surgery, left [Z98.42] 06/09/2024 Combined forms of age-related cataract of right*06/09/2024 Status post cataract surgery, right [Z98.41] 06/18/2024 Other instructions from your clinician: Schedule EKG pasha (da) Schedule EKG 1 week after you start Schedule Office visit with Dr Culver in 3 weeks Encounter Status:Closed by MARIA A GARCIA on 07/16/24 CYTOLOGY NON-COLD MILL INSPECTOR Collected: 07/15/2024 2:32 PM Statu s: F Source: [facility] Order Comment: Specimen Type : SPECIMEN OBTAINED BY ASPIRATION Ordering Facility: [facility] Address: [address] [place] [address] TYPE CODE TESTS RESULT OUT OF RANGE REFERENCE UNITS PATHOLOGY [id number] CASE REPORT Result Comment: Medical Cyto logy Report Case: [id number] Authorizing Provider: Sandy Mcgregor MD, PhD Collected: 07/15/2024 02:32 PM Ordering Location: Endocrinology Received: 07/15/2024 03:30 PM Pathologist: Torri Nunez MD Specimen: Thyroid, Right, Lobe, Mid PATHOLOGY [id number] FINAL DIAGNOSIS Result Comment: A - Thyroid, Right Lobe, Fine Needle Aspirate - Mid Non-diagnostic aspirate sample. Insufficient thyroid follicular epithelial cells present for evaluation. The following cell blocks were associated with this case: A1 Cell Block, Alcohol Fixed OLOGY [id number] GROSS DESCRIPTION Result Comment: A. Thyroid, Right, Lobe 30 cc hazy pink fluid with particles. ThinPrep and Cell Block prepared and 2 smears. Afirma sample received PATHOLOGY CDX2 CLINICAL HISTORY Thyroid Nodules Result Comment: Afirma sample received PATHOLOGY [facility] FINAL PERFORMING LAB Result Comment: Technical co mponent, looseleaf binder coverer screening performed at [facility], [address] [place] [address] CLIA# [id number] Diagnostic interpretation performed at [facility], [address] [place] [address] CLIA# [id number] Gang Sawyer: Amor Eisenberg M.D. Performed By: #### CYTONON # ### [facility] CLIA [id number] [address] [place] [address] PROCEDURE Observed: 07/15/2024 2:06 PM Status: COMPLETED Source: [facility] HNO ID: [id number] Author: SANDY MCGREGOR MD, PhD Service: ? Author Type: Physician Type: Procedures Filed: 07/15/2024 14:41 Note Text: FNA BIOPSY Referring Physician: Sandy Mcgregor MD, P* Primary Care Physician: Flip Jenkins MD Patient on anti-platelet or anticoagulant drugs: No. The risks, benefits and anticipated outcomes of the procedure, the risks and benefits of the alternatives to the procedure, and the roles and tasks of the personnel to be involved, were discussed with the patient. Informed Consent Consent Obtained: Written De Berry Protocol A moment to CARE was completed. [...] are available. Follow up with referring physician. CNOV Observed: 07/15/2024 2:00 PM Status: COMPLETED Source: [facility] Office Visit (ENDOLN) YUE CAPUTO ([id number]) 1955 F Date Time Provider Department 07/15/24 2:00 PM SANDY MCGREGOR ENDOLN During your visit today, we recorded the following information about you: Pulse Blood pressure 77/minute 126/72 Barbara Phelan MA 07/15/2024 2:38 PM Signed UNIVERSAL PROTOCOL / SAFETY CHECKLIST Procedure to [...] Plan of Care Visit completed when applicable. GEORGINA Maxwell Ossama M, MD, PhD 07/15/2024 2:41 PM Signed FNA BIOPSY Referring Physician: Sandy Mcgregor MD, P* Primary Care Physician: Flip Jenkins MD Patient on anti-platelet or anticoagulant drugs: No. The risks, benefits and anticipated outcomes of the procedure, the risks and benefits of the alternatives to the procedure, and the roles and tasks of the personnel to be involved, were discussed with the patient. Informed Consent Consent Obtained: Written [place] Berry Protocol A moment to CARE was completed. [...] are available. Follow up with referring physician. Referring Provider: SANDY MCGREGOR [[id number]] Allergies As of Date: 07/15/2024 Noted Allergy Reaction FENTANYL 04/01/2018 5 - Intolerance Comments: Drop in RR and drop in pulse ox to 70% ADHESIVE TAPE-SILICONES 07/29/2023 2 - Rash SULFA (SULFONAMIDE ANTIBIOTICS) 03/08/2007 16 - Unknown Date Reviewed: 07/15/2024 Reviewed by: Sandy Mcgregor MD, PhD - Fully Assessed Reason for Visit: Thyroid Problem [110] Primary Visit Diagnosis:Multiple thyroid nodules [E04.2] Order(s):US THYROID FNA (POC) ENDO USE ONLY [4379655] Order #: [id number]. #:[id number]: 1 CYTOLOGY NON-COLD MILL INSPECTOR [[id number]] Order #: [id number]. #:[id number] FNA BIOPSY [QQO505] Order #: [id number] Prescriptions as of 07/15/2024 - prednisoLONE acetate (PRED FORTE) 1 % ophthalmic suspension Use 1 Drop in the right eye as directed. Starting TOMORROW place one drop in operative eye four times a day. - abemaciclib (VERZENIO) 100 mg tablet Take 1 tablet (100 mg) by mouth two times a day. - prednisoLONE acetate (PRED FORTE) 1 % ophthalmic suspension Use 1 Drop in the left eye as directed. Starting TOMORROW place one drop in operative eye four times a day. - anastrozole (ARIMIDEX) 1 mg tablet Take 1 tablet by mouth once daily. - NAPROXEN ORAL Take by mouth two times a day. - cholecalciferol (VITAMIN D-3) 5,000 unit tab [...] mg by mouth two times a day. Problem List As Of Date 07/15/2024 Noted Resolved SPINAL STENOSIS NOS [M48.00] Mixed [...] Class III, BMI >= 40 [E66.01] 07/29/2023 Stage 3a chronic kidney disease (HCC) [N18.31] 12/24/2023 Multiple thyroid nodules [E04.2] 05/18/2024 Pulmonary embolism (HCC) [I26.99] 11/05/2023 Status post cataract surgery, left [Z98.42] 06/09/2024 Combined forms of age-related cataract of right*06/09/2024 Status post cataract surgery, right [Z98.41] 06/18/2024 Visit Notes: >> Barbara Phelan MA Wed Jul 15, 2024 1:59 PM Status: Signed UNIVERSAL PROTOCOL / SAFETY CHECKLIST Procedure to [...] of Care Visit completed when applicable. Barbara hPelan MA Encounter Status:Closed by SANDY MCGREGOR on 07/15/24 PROGRESS Observed: 07/14/2024 4:44 PM Status: COMPLETED Source: [facility] HNO ID: [id number] Author: RAKESH BRUNER OD Service: ? Author Type: WOOD GRAINER Type: Progress Notes Filed: 07/14/2024 16:46 Note Text: (Z98.41) Status post cataract surgery, right (primary encounter diagnosis) Comment: 4-5 weeks S/ P PEIOL OD pt happy with improved vision Plan: spec rx given warned symptoms of PCO Follow up in 12 months FULL exam here or in [place] with Dr Millan (Z98.42) Status post cataract surgery, left Comment: 4-5 weeks S/ P PEIOL Os pt reports blur in left without correction discussed cause as uncorrected astigmatism Plan: spec rx given warned symptoms of PCO Follow up in 12 months FULL exam here or in [place] with Dr Millan I have confirmed and [...] with all of its relevant components. Rakesh Bruner, OD July 14, 2024 4:46 PM BAS METAB 2000 PNL SERPL Collected: 3:52 PM Status: F Source: [facility] Order Comment: Specimen Type : BLOOD SPECIMEN Ordering Facility: [facility] Address: [address] [id number] TYPE CODE TESTS RESULT OUT OF RANGE REFERENCE UNITS LAB 2345-7(LOINC) Glucose SerPl-mCnc 149 High 74-99 mg/dL Result Comment: The [place] Diabetes Association (ADA) provides [...] [place] Diabetes Association. Diabetes Care. 2016.39(Suppl 1). LAB 3094-0(LOINC) BUN SerPl-mCnc 20 7-21 mg/ dL LAB 2160-0(LOINC) Creat SerPl-mCnc 1.72 High 0.58-0.96 mg/dL LAB 2951-2(LOINC) Sodium SerPl-sCnc 141 136-144 mmol/L LAB 2823-3(LOINC) Potassium SerPl-sCnc 4.5 3.7-5.1 mmol/L LAB 2075-0(LOINC) Chloride SerPl-sCnc 103 98-107 mmol/L LAB 2028-9(LOINC) CO2 SerPl-sCnc 23 22-30 mmo l/L LAB 63701-7(LOINC) Anion Gap SerPl-sCnc 15 8-15 mmol/L LAB 02178-2(LOINC) Calcium SerPl-mCnc 9.8 8.5-10.2 mg/dL LAB 48038-5(LOINC) Creatinine + eGFR Pnl SerPlBld 32 Low >=60 mL/min/1 .73m??? Result Comment: Estimated Gl omerular Filtration Rate (eGFR) is calculated using the 2020 CKD-EPI creatinine equation. This equation utilizes serum creatinine, sex, and age as parameters. The creatinine assay has traceable calibration to isotope dilution-mass spectrometry. Refer to KDIGO guidelines for clinical interpretation. In patients with unstable renal function, e.g. those with acute kidney injury, the eGFR may not accurately reflect actual GFR. Performed By: #### 78820-4 # ### [facility] CLIA [id number] [address] [place] [address] CYSTATIN C Collected: 10:56 AM Status: F Source: [facility] Comment: Specimen Type : BLOOD SPECIMEN Ordering Facility: [facility] Address: [address] [place] [address] TYPE CODE TESTS RESULT OUT OF RANGE REFERENCE UNITS LAB 37934-0(LOINC) Cystatin C SerPl-mCnc 1.66 High 0.61-0.95 mg/L LAB CYSTC CYSTATIN C EGFR 36 Low >=60 mL/min/1. 73m??? Result Comment: Estimated Gl omerular Filtration Rate (eGFR) is calculated using the 2012 CKD-EPI cystatin C equation. This equation utilizes serum cystatin C, sex, and age as parameters. The cystatin C assay has traceable calibration to the ERM-DA471/[facility] reference material. Refer to KDIGO guidelines for clinical interpretation. In patients with unstable renal function, e.g. those with acute kidney injury, the eGFR may not accurately reflect actual GFR. Performed By: #### CYSTC ### # [facility] CLIA [id number] [address] [place] [address] [place] COMP METAB 2000 PNL SERPL Collected: 10:56 AM Status: F Source: [facility] Comment: Specimen Type : BLOOD SPECIMEN Ordering Facility: [facility] Address: [address] [place] [address] TYPE CODE TESTS RESULT OUT OF RANGE REFERENCE UNITS LAB 2885-2(LOINC) Prot SerPl-mCnc 6.7 6.3-8.0 g/dL LAB 1751-7(LOINC) Albumin SerPl-mCnc 4.0 3.9-4.9 g/dL LAB 44437-2(LOINC) Calcium SerPl-mCnc 9.5 8.5-10.2 mg/dL LAB 1975-2(LOINC) Bilirub SerPl-mCnc 0.3 0.2-1.3 mg/dL LAB 6768-6(LOINC) ALP SerPl-cCnc 75 34-123 U/L LAB 1920-8(LOINC) AST SerPl-cCnc 10 Low 13-35 U/L LAB 1742-6(LOINC) ALT SerPl-cCnc 11 7-38 U/L LAB 2345-7(LOINC) Glucose SerPl-mCnc 127 High 74-99 mg/dL Result Comment: The [place] Diabetes Association (ADA) provides [...] [place] Diabetes Association. Diabetes Care. 2016.39(Suppl 1). LAB 3094-0(LOINC) BUN SerPl-mCnc 28 High 7-21 mg/ dL LAB 2160-0(LOINC) Creat SerPl-mCnc 2.17 High 0.58-0.96 mg/dL LAB 2951-2(LOINC) Sodium SerPl-sCnc 143 136-144 mmol/L LAB 2823-3(LOINC) Potassium SerPl-sCnc 4.4 3.7-5.1 mmol/L LAB 2075-0(LOINC) Chloride SerPl-sCnc 108 High 98-107 mmol/L LAB 2028-9(LOINC) CO2 SerPl-sCnc 21 Low 22-30 mmo l/L LAB 55099-8(LOINC) Anion Gap SerPl-sCnc 14 8-15 mmol/L LAB 19968-0(LOINC) Creatinine + eGFR Pnl SerPlBld 24 Low >=60 mL/min/1 .73m??? Result Comment: Estimated Gl omerular Filtration Rate (eGFR) is calculated using the 2020 CKD-EPI creatinine equation. This equation utilizes serum creatinine, sex, and age as parameters. The creatinine assay has traceable calibration to isotope dilution-mass spectrometry. Refer to KDIGO guidelines for clinical interpretation. In patients with unstable renal function, e.g. those with acute kidney injury, the eGFR may not accurately reflect actual GFR. Performed By: #### 00722-9 # ### [facility] CLIA [id number] [address] [place] [address] CBC W AUTO DIFF BLD Collected: 07/06/2024 10:56 AM S tatus: F Source: [facility] Order Comment: Specimen Type : BLOOD SPECIMEN Ordering Facility: [facility] Address: [address] [place] [address] TYPE CODE TESTS RESULT OUT OF RANGE REFERENCE UNITS LAB 6690-2([facility]) WBC # Bld Auto 5.50 3.70-11.00 k/uL LAB 789-8([facility]) RBC # Bld Auto 3.48 Low 3.90-5.20 m/ uL LAB 718-7([facility]) Hgb Bld-mCnc 11.4 Low 11.5-15.5 g/dL LAB 4544-3([facility]) Hct VFr Bld Auto 33.9 Low 36.0-46.0 % LAB 787-2([facility]) MCV RBC Auto 97.4 80.0-100.0 fL LAB 785-6([facility]) MCH RBC Qn Auto 32.8 26.0-34.0 p g LAB 786-4([facility]) MCHC RBC Auto-mCnc 33.6 30.5-36.0 g/dL LAB 49324-7([facility]) RDW RBC-Rto 15.8 High 11.5-15.0 % LAB 777-3([facility]) Platelet # Bld Auto 255 150-400 k/uL LAB 60957-8([facility]) PMV Bld Auto 8.9 Low 9.0-12.7 fL LAB 770-8([facility]) Neutrophils/leuk NFr Bld Auto 70.5 % LAB 751-8([facility]) Neutrophils # Bld Auto 3.87 1.45-7.50 k/uL LAB 736-9([facility]) Lymphocytes/leuk NFr Bld Auto 17.1 % LAB 731-0([facility]) Lymphocytes # Bld Auto 0.94 Low 1.00-4.00 k/uL LAB 5905-5([facility]) Monocytes/leuk NFr Bld Auto 4.5 % LAB 742-7([facility]) Monocytes # Bld Auto 0.25 <0.87 k/uL LAB 713-8(LO[facility]) Eosinophil/leuk NFr Bld Auto 6.9 % LAB 711-2(LOINC) Eosinophil # Bld Auto 0.38 <0.46 k/uL LAB 706-2(LOINC) Basophils/leuk NFr Bld Auto 0.5 % LAB 704-7(LOINC) Basophils # Bld Auto 0.03 <0.11 k/uL LAB 68151-9(LOINC) Imm Granulocytes/tanisha k NFr Bld Auto 0.5 % LAB 87299-9(LOINC) Imm Granulocytes # Bld Auto 0.03 <0.10 k/uL LAB 39729-0(LOINC) nRBC/100 WBC Bld-Rto 0.0 /100 WBC LAB 771-6(LOINC) nRBC # Bld Auto <0.01 <0.01 k/u L LAB 52518-2(LOINC) Differential method Bld Auto Performed By: #### 56944-1 # ### [facility] CLIA [id number] [address] [place] [address] PROGRESS Observed: 06/23/2024 11:58 AM Status: COMPLETED Source: [facility] HNO ID: [id number] Author: RAKESH BRUNER, TRIIXE Service: ? Author Type: WOOD GRAINER Type: Progress Notes Filed: 06/23/2024 12:02 Note Text: (Z98.41) Status post cataract surgery, right (primary [...] with all of its relevant components. Rakesh Bruner OD June 23, 2024 12:01 PM CNPN Observed: 06/23/2024 12:00 AM Status: COMPLETED Source: [facility] Telephone (HEMAVN) YUE CAPUTO ([id number]) 1955 F Date Time Provider Department 06/23/24 JENNIFER MYERS During your visit today, we recorded the following information about you: Jennifer Myers RN 06/23/2024 11:39 AM Signed Please schedule referral to endocrinology [facility] for biopsy of thyroid nodule found on US. Please notify patient of day/time of appointment, she is expecting a call. Jennifer Myers RN 06/23/2024 12:02 PM Addendum Care Coordination Triage Note [facility] Situation: Results US thyroid/parathyroid Background: Disease, current [...] stability or previous biopsy results. Recommendations: Per Jose, patient directed to: -Referral to endocrinology placed to expect biopsy of nodule -Placed scheduling request Patient expressed understanding and agreeable to plan. Office contact number provided. Jennifer Myers RN June 23, 2024 11:50 AM Carlos Bruner 06/23/2024 12:44 PM Signed Patient was seen by Dr. Mcgregor for thyroid nodules in April 2024. Please advise if he can place FNA order so we can schedule. Otherwise, providers are booking far out for another consult. Sandy Mcgregor MD, PhD 06/30/2024 1:02 PM Signed Please schedule patient for FNA with at [facility] on 07/15 at 1 or 2 PM according to her preference. Sandy Mcgregor MD, PhD 06/30/2024 1:02 PM Signed Addended by: SANDY MCGREGOR on: 06/30/2024 01:02 PM Modules accepted: Orders Rosa Beaulieu LPN 06/30/2024 5:11 PM Signed Left message on machine to call the office. Detailed [employer] message also sent Rosa Beaulieu LPN 07/01/2024 3:11 PM Signed Spoke to patient, message given from . She scheduled an appointment for 08/12. Please cancel that appointment and reschedule for 07/15/2024 for FNA at 2:00PM Ajjamal Ny 07/01/2024 3:28 PM Signed Appointment scheduled per below. Advised that patient was already aware of date, time, and location. Previous appt cancelled. Allergies As of Date: 06/23/2024 Noted Allergy Reaction FENTANYL 04/01/2018 5 - Intolerance Comments: Drop in RR and drop in pulse ox to 70% ADHESIVE TAPE-SILICONES 07/29/2023 2 - Rash SULFA (SULFONAMIDE ANTIBIOTICS) 03/08/2007 16 - Unknown Date Reviewed: 06/23/2024 Reviewed by: Rakesh Bruner, TRIXIE - Fully Assessed Reason for Visit: Results [95] Orders [681] Primary Visit Diagnosis:Multiple thyroid nodules [E04.2] Order(s):ENDO THYROID/LYMPH NODE FNA [[id number]] Order #: [id number] Prescriptions as of 07/01/2024 - prednisoLONE acetate (PRED FORTE) 1 % ophthalmic suspension Use 1 Drop in the right eye as directed. Starting TOMORROW place one drop in operative eye four times a day. - abemaciclib (VERZENIO) 100 mg tablet Take 1 tablet (100 mg) by mouth two times a day. - prednisoLONE acetate (PRED FORTE) 1 % ophthalmic suspension Use 1 Drop in the left eye as directed. Starting TOMORROW place one drop in operative eye four times a day. - anastrozole (ARIMIDEX) 1 mg tablet Take 1 tablet by mouth once daily. - NAPROXEN ORAL Take by mouth two times a day. - cholecalciferol (VITAMIN D-3) 5,000 unit tab [...] mg by mouth two times a day. Problem List As Of Date 06/23/2024 Noted Resolved SPINAL STENOSIS NOS [M48.00] Mixed [...] Class III, BMI >= 40 [E66.01] 07/29/2023 Stage 3a chronic kidney disease (HCC) [N18.31] 12/24/2023 Multiple thyroid nodules [E04.2] 05/18/2024 Pulmonary embolism (HCC) [I26.99] 11/05/2023 Status post cataract surgery, left [Z98.42] 06/09/2024 Combined forms of age-related cataract of right*06/09/2024 Status post cataract surgery, right [Z98.41] 06/18/2024 Encounter Status:Closed by JENNIFER MYERS on 06/23/24 PROGRESS Observed: 06/18/2024 11:26 AM Status: COMPLETED Source: [facility] ID: [id number] Author: RAKESH BRUNER OD Service: ? Author Type: WOOD GRAINER Type: Progress Notes Filed: 06/18/2024 11:31 Note Text: (Z98.41) Status post cataract surgery, right (primary [...] with all of its relevant components. Rakesh Bruner, OD June 18, 2024 11:30 AM US THYROID/PARATHYROID Observed: 024 11:24 AM Status: F Source: [facility] * * *Final Report* * * DATE OF EXAM: Jun 18 2024 11:24AM LNU 1048 - US THYROID/PARATHYROID / PROCEDURE REASON: Multiple thyroid nodules * * * * Physician Interpretation * * * * EXAMINATION: THYROID ULTRASOUND CLINICAL HISTORY: Multiple thyroid nodules TECHNIQUE: Sonography and Doppler imaging of the thyroid was performed. Images were obtained and stored in a permanent archive. MQ: [id number]_1 COMPARISON: Ultrasound performed 03/29/2022 RESULT: Right Lobe: 5.3 x 2.5 x 2.5 cm; homogeneous echogenicity, expected vascular flow. Left Lobe: 3.6 x 1.5 x 1.5 cm; homogeneous echogenicity, expected vascular flow. Isthmus: 0.3 cm The most suspicious thyroid nodule(s) (up to four) as below: NODULE 1: Location: Right mid Size: 3.6 x 2.3 x 1.9 cm Characteristics: Composition: Solid or almost completely solid, 2 points Echogenicity: Hypoechoic, 2 points Shape: Oiqpa-ztzs-qcfd, 0 points Margin: Smooth, 0 points Echogenic foci (add points for all that apply): None, 0 points Internal vascularity: present Interval growth: No significant growth given differences in technique TI-RADS Category: TR4 ACR Recommendation: TI-RADS 4 nodule. FNA is recommended. NODULE 2: Location: Right lower pole Size: 0.8 x 0.5 x 0.7 cm Characteristics: Composition: Solid or almost completely solid, 2 points Echogenicity: Hypoechoic, 2 points Shape: Rshug-gpup-qtoa, 0 points Margin: Smooth, 0 points Echogenic foci (add points for all that apply): None, 0 points Internal vascularity: present Interval growth: No significant growth given differences in technique TI-RADS Category: TR4 ACR Recommendation: TI-RADS 4 nodule. No FNA or follow-up imaging is advised. NODULE 3: Location: Left mid Size: 0.7 x 0.5 x 0.7 cm Characteristics: Composition: Solid or almost completely solid, 2 points Echogenicity: Hypoechoic, 2 points Shape: Agrhv-xfti-uvsg, 0 points Margin: Smooth, 0 points Echogenic foci (add points for all that apply): None, 0 points Internal vascularity: absent Interval growth: No prior available for comparison TI-RADS Category: TR4 ACR Recommendation: TI-RADS 4 nodule. No FNA or follow-up imaging is advised. IMPRESSION: Thyroid nodule(s) is/are present. Fine needle aspiration is recommended if not previously performed. TI-RADS Category: TR4 ACR Recommendation: TI-RADS 4 nodule. FNA is recommended. ACR recommendations are strictly based on the size and imaging appearance at the time of the exam and do not consider stability or previous biopsy results. Vascular Neurologist: BEA Transcribe Date/Time: Jun 19 2024 10:58A Dictated by : NII SMART MD This examination was interpreted and the report reviewed and electronically signed by: NII SMART MD on Jun 19 2024 11:11AM EST [id number] PROGRESS Observed: 06/18/2024 11:18 AM Status: COMPLETED Source: [facility] HNO ID: [id number] Author: POONAM OGLESBY RT(R) Service: ? Author Type: Technologist Type: Progress Notes Filed: 06/18/2024 11:18 Note Text: Radiology Service Progress Note PATIENT NAME: Yue Caputo DATE OF SERVICE: June 18, 2024 [...] PATIENT PRESENTS WITH AN IMPLANTABLE OR ATTACHED BASIN OPERATOR: No RADIOLOGY DEPARTMENT: Ultrasound PERIPHERAL IV DATA: Not applicable SIGNED BY: Poonam Oglesby RDMS, RVT June 18, 2024 11:18 AM ANES POSTPROC EVAL Observed: 06/17/2024 1:28 PM Status: COMPLETED Source: [facility] HNO ID: [id number] Author: CHEYENNE AHN MD Service: Anesthesiology Author Type: Anesthesiologist Type: Anesthesia Postprocedure Evaluation Filed: 06/17/2024 13:28 Note Text: POST ANESTHESIA EVALUATION NOTE : 1955 Procedure Summary Date: 06/17/24 Room / Location: [address] Anesthesia Start: 1226 Anesthesia Stop: 1244 Procedures: PHACOEMULSIFICATION CATARACT IMPLANT INTRAOCULAR LENS W/O ENDOSCOPIC CYCLOPHOTOCOAGULATION (Right: Eye) OPHTHALMIC BIOMETRY BY PARTIAL COHERENCE INTERFEROMETRY W/INTRAOCULAR LENS POWER CALCULATION (Right: Eye) Diagnosis: Combined forms of age-related cataract of both eyes (Combined forms of age-related cataract of both eyes [H25.813]) Surgeons: Oliver Shepherd MD Responsible Provider: Cheyenne Ahn MD Anesthesia Type: MAC ASA Status: 3 Anesthesia Type: MAC Last Vitals Vitals Value Taken Time BP 121/58 06/17/24 1300 Temp 36.3 ?C (97.3 ?F) 06/17/24 1245 HR SpO2 69 06/17/24 1300 Resp 18 06/17/24 1300 SpO2 99 % 06/17/24 1300 Post Anesthesia Patient Status Patient Evaluation: PACU. PACU/ICU Patient Condition: stable. Neurological Status: aware and responsive. Pulmonary Status: breathing comfortably on room air Airway Control: returned to baseline unsupported. Cardiovascular Status: stable. Pain Management: clinically adequate Postoperative Hydration: acceptable. Intraoperative Events: no significant anesthesia events Post Operative Nausea/Vomiting Status: no significant post operative nausea or vomiting Recommendation: continue current plan of care. Anesthesia Observations No Documentation SIGNATURE: Cheyenne Ahn MD PATIENT NAME: Yue Caputo DATE: June 17, 2024 TIME: 1:28 PM CSN: [id number] OPERATIVE NO Observed: 06/17/2024 12:26 PM Status: COMPLETED Source: [facility] ID: [id number] Author: OLIVER SHEPHERD MD Service: Ophthalmology Author Type: Physician Type: Operative Report Filed: 06/17/2024 12:43 Note Text: OPERATIVE/PROCEDURE REPORT Patient Name: Yue Caputo LOG ID: [id number] Surgery/Procedure Date: 06/17/2024 Incision/Procedure Start Time: 12:33 PM Incision Close/Procedure End Time: 12:41 PM Surgeon(s)/Proceduralist(s) and Riverboat Master(s): Surgeons and Role: * Oliver Shepherd MD - Primary Procedure(s): Procedure(s) (LRB): PHACOEMULSIFICATION CATARACT IMPLANT INTRAOCULAR LENS W/O ENDOSCOPIC CYCLOPHOTOCOAGULATION (Right) OPHTHALMIC BIOMETRY BY PARTIAL COHERENCE INTERFEROMETRY W/INTRAOCULAR LENS POWER CALCULATION (Right) Preoperative Diagnosis: Pre-Op Diagnosis Codes: * Combined forms of age-related cataract of right eye Postoperative Diagnosis: same Operative Indications: The patient has a functionally significant cataract. The risks, benefits, and alternatives of cataract extraction with intraocular lens implantation were discussed with the patient who agreed to have the procedure done. Anesthesia: Monitored Anesthesia Care Procedure Details: Preoperatively, 2% lidocaine gel was instilled into the operative eye. The patient was taken to the operating room in a supine position on the operating table. The operative eye was then prepped with povidone-iodine and draped in the usual sterile fashion for intraocular surgery. Under the operating microscope, a temporal paracentesis was created. A small amount of preservative-free 1% lidocaine was instilled into the anterior chamber. The anterior chamber was then deepened with Viscoat. A temporal triplanar clear corneal incision was created with a 2.4 mm keratome. A cystitome and Utrata forceps were used to fashion a continuous curvilinear capsulorrhexis. Balanced salt solution was used to hydrodissect and hydrodelineate the nucleus. The phacoemulsification tip was introduced into the eye, and anterior cortex was aspirated. The nucleus was removed with CDE 6.99 . Irrigation and aspiration was used to remove residual cortex. The capsular bag was examined and found to be intact. The anterior chamber was deepened with Provisc, and a 13 diopter, model clareon lens was injected into the capsular bag. Irrigation and aspiration was used to remove residual viscoelastic. The wounds were hydrated, examined, and found to be watertight. 0.1 cc of cefuroxime was injected into the anterior chamber. The drapes were removed, and ofloxacin 0.3% was instilled into the operative eye. The patient was taken to the recovery area in stable condition. No qualified resident/fellow was available. Estimated Blood Loss: minimal Specimens: * No specimens in log * Implantable Devices: Implant Name Type Inv. Item Serial No. [employer] Lot No. LRB No. Used Action Model No. CCA0T0.130 [facility] - [id number] Intraocular Lens CCA0T0.130 [facility] [id number] [employer] [facility] Right 1 Implanted CCA0T0.130 I have reviewed the images and report from the Ophthalmic Biometry 06/17/2024 to determine the Intraocular lens Power Calculation for the IOL lens implant. I have interpreted and agree with the calculation of the IOL as listed below. Drains: None Complications: None Oliver Shepherd MD June 17, 2024 12:42 PM ANES PRE-OP Observed: 06/17/2024 12:13 PM Status: COMPLETED Source: [facility] ID: [id number] Author: CHEYENNE AHN MD Service: Anesthesiology Author Type: Anesthesiologist Type: Anesthesia Preprocedure Evaluation Filed: 06/17/2024 12:14 Note Text: ANESTHESIOLOGY DAY OF SURGERY NOTE : 1955 Procedure Information Date/Time: 06/17/24 1210 Procedures: PHACOEMULSIFICATION CATARACT IMPLANT INTRAOCULAR LENS W/O ENDOSCOPIC CYCLOPHOTOCOAGULATION (Right: Eye) OPHTHALMIC BIOMETRY BY PARTIAL COHERENCE INTERFEROMETRY W/INTRAOCULAR LENS POWER CALCULATION (Right: Eye) Location: [place] [address] / [facility] Surgeons: Oliver Shepherd MD Estimated body mass index is 50.12 kg/m? as calculated from the following: Height as of 06/03/24: 157.5 cm (5' 2 ). Weight as of 06/03/24: 124.3 kg (274 lb 0.5 oz). Most recent hematocrit and potassium results: Hematocrit 36.5 06/01/2024 Potassium 4.5 06/01/2024 Relevant Problems CARDIO (+) PETERSON (dyspnea on exertion) (+) Primary hypertension (+) Pulmonary embolism (HCC) (+) Undiagnosed cardiac murmurs GI (+) GERD (gastroesophageal reflux disease) -RENAL (+) Stage 3a chronic kidney disease (HCC) PULMONARY (+) COPD (chronic obstructive pulmonary disease) ([facility]) (+) PETERSON (dyspnea on exertion) Other (+) Arthritis of both knees (+) RA (rheumatoid arthritis) ([facility]) I - PHYSICAL EVALUATION AIRWAY Patient intubated: No. Tracheostomy tube not present Mallampati: II. TM distance: >3 FB. Neck ROM: full ROM without neurological symptoms. Mouth opening: adequate. Short neck: no. Thick neck: no Additional exam findings: no II - ANESTHESIA PLAN ASA Score: 3 Anesthetic Plan: MAC The patient is not a current smoker. NPO Status: adequate Beta Rajan Monitoring Plan Monitoring plan: standard ASA. Post Procedure Analgesic Plan Postoperative analgesic plan: multimodal analgesia. Informed Consent Anesthetic risks, benefits, alternatives, personnel and consent discussed: yes. Patient / Responsible Green Party agrees to proceed: yes Patient / Surrogate agrees to blood products: Yes Potential Anesthesia issues that may suggest increased risk of complications or contraindication to planned procedure: none. Vitals Value Taken Time BP 130/60 06/17/24 1156 Pulse 62 06/17/24 1156 Resp 14 06/17/24 1156 Temp 36.3 ?C (97.3 ?F) 06/17/24 1156 SpO2 100 % 06/17/24 1156 Facility-Administered Medications as of 06/17/2024 Medication Dose Route Frequency [COMPLETED] PHENYLephrine 2.5 % 1 Drop (AK-DILATE, ARMIDA-SYNEPHRINE) 1 Drop RIGHT EYE q 5 MIN [COMPLETED] tropicamide 1 % 1 Drop (MYDRIACYL) 1 Drop RIGHT EYE q 5 MIN [COMPLETED] cyclopentolate 1 % 1 Drop (CYCLOGYL) 1 Drop RIGHT EYE q 5 MIN [COMPLETED] lidocaine 4% 1 Drop ophthalmic solution (XYLOCAINE) 1 Drop RIGHT EYE q 5 MIN [COMPLETED] lidocaine 4% 1 Drop ophthalmic solution (XYLOCAINE) 1 Drop LEFT EYE q 5 MIN [COMPLETED] Povidone-Iodine 5 % 30 mL ophth soln (BETADINE) 30 mL LEFT EYE ONCE [COMPLETED] balanced salts 15 mL (BSS) 15 mL LEFT EYE ONCE [COMPLETED] tropicamide 1 % 1 Drop (MYDRIACYL) 1 Drop LEFT EYE q 5 MIN [COMPLETED] PHENYLephrine 2.5 % 1 Drop (AK-DILATE, ARMIDA-SYNEPHRINE) 1 Drop LEFT EYE q 5 MIN Outpatient Medications as of 06/17/2024 Medication Sig prednisoLONE acetate (PRED FORTE) 1 % ophthalmic suspension Use 1 Drop in the left eye as directed. Starting TOMORROW place one drop in operative eye four times a day. atorvastatin (LIPITOR) 20 mg tablet Take 1 tablet by mouth once daily. (Patient taking differently: Take 40 mg by mouth once daily.) losartan (COZAAR) 50 mg tablet Take 50 mg by mouth once daily. METOPROLOL 100 MG TAB Take 50 mg by mouth two times a day. NAPROXEN ORAL Take by mouth two times a day. cholecalciferol (VITAMIN D-3) 5,000 unit tab Take 5,000 Units by mouth once daily. spironolactone (ALDACTONE) 25 mg tablet Take 1 tablet by mouth every afternoon. esomeprazole magnesium (NEXIUM ORAL) Take 20 mg [...] obtained within 48 hours of Surgery/Procedure. SIGNATURE: Cheyenne Ahn MD PATIENT NAME: Yue Caputo DATE: June 17, 2024 TIME: 12:13 PM CSN: [id number] PROGRESS Observed: 06/09/2024 11:21 AM Status: COMPLETED Source: [facility] ID: [id number] Author: RAKESH BRUNER OD Service: ? Author Type: WOOD GRAINER Type: Progress Notes Filed: 06/09/2024 11:24 Note Text: (Z98.42) Status post cataract surgery, left (primary [...] with all of its relevant components. Rakesh Bruner, OD June 09, 2024 11:23 AM [place] Observed: 06/03/2024 1:30 PM Status: COMPLETED Source: [facility] Visit (SP) Office (HEMAVN) YUE CAPUTO ([id number]) 1955 F Date Time Provider Department 06/03/24 1:30 PM MARIA A GARCIA During your visit today, we recorded the following information about you: Temperature Pulse Respiration Blood pressure 97.9 degrees 72/minute 18/minute 142/83 Weight Height 124.3 kg 1.575 m Maria A Garcia MD 06/03/2024 1:31 PM Signed PATIENT NAME: Yue Caputo CLINIC NO.: [id number] ATTENDING PHYSICIAN: Maria A Garcia MD DATE OF SERVICE: June 03, 2024 Some of the elements of this note have been copied from my previous progress note dated 04/21/2024. All the information has been reviewed carefully. Dear Dr. Mendoza Yagn here is an update on a follow up visit on female Yue Caputo at the clinic June 03, 2024 [...] AE.-- 100 mg PO BID- 05/2024 HPI: Yue Caputo is a 68 year old year [...] elected to transfer her care to the [facility] and underwent a L breast mastectomy [...] Range Status 06/01/2024 5.5 % Final Abs [place] Date Value Ref Range Status 06/01/2024 0.24 [...] Histologic Type Invasive lobular carcinoma Histologic Grade ([place] Histologic Score) Glandular (Acinar) / Tubular Differentiation [...] Examined (sentinel and non-sentinel) 4 Number of [place] Nodes Examined 4 pTNM CLASSIFICATION (AJCC 8th Edition) Reporting of pT, pN, and (when applicable) pM categories is based on information available to the pathologist at the time the report is issued. As per the AJCC (Chapter 1, 8th Ed.) it is the managing physician?s responsibility to establish the final pathologic stage [...] and US: Negative. Assessment and Plan: Yue Caputo is a 67 year old year [...] Verzenio was started later due to patient administrative library assistant program in late April 2024 at [...] do not hesitate to contact me at [phone]. Maria A Garcia MD Hematology/Medical Oncology [facility] I spent a total of 30 minutes on the date of the service which included preparing to see the patient, [id number] patient care, completing clinical documentation, obtaining and/or reviewing separately obtained history, performing a medically appropriate examination, and counseling and educating the patient/family/caregiver. CC: Flip Jenkins MD Letso, Tiffany, LPN 06/03/2024 2:49 PM Signed Labs in [facility] in 1 week MD exam and labs prior to the visit in 6 weeks Referring Provider: OLIVER SHEPHERD [[id number]] Allergies As of Date: 06/03/2024 Noted Allergy Reaction FENTANYL 04/01/2018 5 - Intolerance Comments: Drop in RR and drop in pulse ox to 70% ADHESIVE TAPE-SILICONES 07/29/2023 2 - Rash SULFA (SULFONAMIDE ANTIBIOTICS) 03/08/2007 16 - Unknown Date Reviewed: 06/03/2024 Reviewed by: Maria A Garcia MD - Fully Assessed Reason for Visit: Established Patient [175] Primary Visit Diagnosis:Invasive lobular carcinoma of breast in female (HCC) [C50.919] Order(s):CYSTATIN C [SQCYSTC] Order #: [id number] FUTURE BASIC METABOLIC PANEL [SQBMP] Order #: [id number] FUTURE COMPLETE BLOOD COUNT AND DIFFERENTIAL [SQCBCDIF] Order #: [id number] FUTURE COMPREHENSIVE METABOLIC PANEL [SQCMP] Order #: [id number] FUTURE abemaciclib (VERZENIO) 100 mg tabletTake 1 tablet (100 mg) by mouth two times a day.Disp: 60 tabletRfl: 5 Disposition: Return in about 6 weeks (around 07/15/2024). Follow-up and Disposition History for Encounter Date Provider Department Center 06/03/2024 [id number], KASRA HEMAVN Rej Prescriptions as of 07/15/2024 - prednisoLONE acetate (PRED FORTE) 1 % ophthalmic suspension Use 1 Drop in the right eye as directed. Starting TOMORROW place one drop in operative eye four times a day. - abemaciclib (VERZENIO) 100 mg tablet Take 1 tablet (100 mg) by mouth two times a day. - prednisoLONE acetate (PRED FORTE) 1 % ophthalmic suspension Use 1 Drop in the left eye as directed. Starting TOMORROW place one drop in operative eye four times a day. - anastrozole (ARIMIDEX) 1 mg tablet Take 1 tablet by mouth once daily. - NAPROXEN ORAL Take by mouth two times a day. - cholecalciferol (VITAMIN D-3) 5,000 unit tab [...] mg by mouth two times a day. Problem List As Of Date 06/03/2024 Noted Resolved SPINAL STENOSIS NOS [M48.00] Mixed [...] Class III, BMI >= 40 [E66.01] 07/29/2023 Stage 3a chronic kidney disease (HCC) [N18.31] 12/24/2023 Multiple thyroid nodules [E04.2] 05/18/2024 Pulmonary embolism (HCC) [I26.99] 11/05/2023 Other instructions from your clinician: Labs in [place] [facility] in 1 week MD exam and labs prior to the visit in 6 weeks Encounter Status:Closed by MARIA A GARCIA on 06/03/24 PROGRESS Observed: 06/03/2024 12:40 PM Status: COMPLETED Source: [facility] HNO ID: [id number] Author: MARIA A GARCIA MD Service: ? Author Type: Physician Type: Progress Notes Filed: 06/03/2024 13:31 Note Text: PATIENT NAME: Yue Caputo CLINIC NO.: [id number] ATTENDING PHYSICIAN: Maria A Garcia MD DATE OF SERVICE: June 03, 2024 Some of the elements of this note have been copied from my previous progress note dated 04/21/2024. All the information has been reviewed carefully. Dear Dr. Mendoza Yang here is an update on a follow up visit on female Yue Caputo at the clinic June 03, 2024 [...] AE.-- 100 mg PO BID- 05/2024 HPI: Yue Caputo is a 68 year old year [...] elected to transfer her care to the [facility] and underwent a L breast mastectomy [...] Range Status 06/01/2024 5.5 % Final Abs [place] Date Value Ref Range Status 06/01/2024 0.24 [...] Histologic Type Invasive lobular carcinoma Histologic Grade ([place] Histologic Score) Glandular (Acinar) / Tubular Differentiation [...] Examined (sentinel and non-sentinel) 4 Number of [place] Nodes Examined 4 pTNM CLASSIFICATION (AJCC 8th Edition) Reporting of pT, pN, and (when applicable) pM categories is based on information available to the pathologist at the time the report is issued. As per the AJCC (Chapter 1, 8th Ed.) it is the managing physician?s responsibility to establish the final pathologic stage [...] and US: Negative. Assessment and Plan: Yue Caputo is a 67 year old year [...] Verzenio was started later due to patient administrative library assistant program in late April 2024 at [...] do not hesitate to contact me at [phone]. Maria A Garcia MD Hematology/Medical Oncology [facility] I spent a total of 30 minutes on the date of the service which included preparing to see the patient, [id number] patient care, completing clinical documentation, obtaining and/or reviewing separately obtained history, performing a medically appropriate examination, and counseling and educating the patient/family/caregiver. CC: Flip Jenkins MD PROGRESS Observed: 06/03/2024 11:49 AM Status: COMPLETED Source: [facility] HNO ID: [id number] Author: OLIVER SHEPHERD MD Service: ? Author Type: Physician Type: Progress Notes Filed: 06/03/2024 12:02 Note Text: S/P Cataract Surgery with a Posterior Chamber [...] by others. I have seen and examined Yue Caputo. I have discussed the case and the management of this patient's care with the Resident/Fellow, if applicable. I also have reviewed and agree with the assessment and plan as stated above and agree with all of its relevant components. CNPLilia Observed: 06/03/2024 12:00 AM Status: COMPLETED Source: [facility] Telephone (HEMAVN) YUE CAPUTO ([id number]) 1955 F Date Time Provider Department 06/03/24 NIA ARIAS During your visit today, we recorded the following information about you: Nia Arias RN 06/03/2024 1:32 PM Signed Faxed new verzenio rx with dose reduction along with OV notes today hem/onc for Verzenio 100mg tablet BID to [facility] pharmacy at fax: [phone]. Allergies As of Date: 06/03/2024 Noted Allergy Reaction FENTANYL 04/01/2018 5 - Intolerance Comments: Drop in RR and drop in pulse ox to 70% ADHESIVE TAPE-SILICONES 07/29/2023 2 - Rash SULFA (SULFONAMIDE ANTIBIOTICS) 03/08/2007 16 - Unknown Date Reviewed: 06/03/2024 Reviewed by: Maria A Garcia MD - Fully Assessed Reason for Visit: Medication Dosage Adjustment [1205] Cmt: Verzenio Prescriptions as of 06/03/2024 - abemaciclib (VERZENIO) 100 mg tablet Take 1 tablet (100 mg) by mouth two times a day. - prednisoLONE acetate (PRED FORTE) 1 % ophthalmic suspension Use 1 Drop in the left eye as directed. Starting TOMORROW place one drop in operative eye four times a day. - anastrozole (ARIMIDEX) 1 mg tablet Take 1 tablet by mouth once daily. - NAPROXEN ORAL Take by mouth two times a day. - cholecalciferol (VITAMIN D-3) 5,000 unit tab [...] mg by mouth two times a day. Problem List As Of Date 06/03/2024 Noted Resolved SPINAL STENOSIS NOS [M48.00] Mixed [...] Class III, BMI >= 40 [E66.01] 07/29/2023 Stage 3a chronic kidney disease (HCC) [N18.31] 12/24/2023 Multiple thyroid nodules [E04.2] 05/18/2024 Pulmonary embolism (HCC) [I26.99] 11/05/2023 Encounter Status:Closed by NIA ARIAS on 06/03/24 ANES POSTPROC EVAL Observed: 06/02/2024 10:36 AM Status: COMPLETED Source: [facility] HNO ID: [id number] Author: BERTA KENT MD Service: Anesthesiology Author Type: Anesthesiologist Type: Anesthesia Postprocedure Evaluation Filed: 06/02/2024 10:36 Note Text: POST ANESTHESIA EVALUATION NOTE : 1955 Procedure Summary Date: 06/02/24 Room / Location: [place] [address] / [facility] Anesthesia Start: 1001 Anesthesia Stop: 1023 Procedures: PHACOEMULSIFICATION CATARACT IMPLANT INTRAOCULAR LENS W/O ENDOSCOPIC CYCLOPHOTOCOAGULATION (Left: Eye) OPHTHALMIC BIOMETRY BY PARTIAL COHERENCE INTERFEROMETRY W/INTRAOCULAR LENS POWER CALCULATION (Left: Eye) Diagnosis: Combined forms of age-related cataract of both eyes (Combined forms of age-related cataract of both eyes [H25.813]) Surgeons: Oliver Shepherd MD Responsible Provider: Berta Kent I, MD Anesthesia Type: MAC ASA Status: 3 Anesthesia Type: MAC Last Vitals See nursing rcord Post Anesthesia Patient Status Patient Evaluation: PACU. [...] of care. Anesthesia Observations No Documentation SIGNATURE: Berta Kent MD PATIENT NAME: Yue Caputo DATE: June 02, 2024 TIME: 10:36 AM CSN: [id number] ANES PRE-OP Observed: 06/02/2024 10:06 AM Status: COMPLETED Source: [facility] ID: [id number] Author: BERTA KENT MD Service: Anesthesiology Author Type: Anesthesiologist Type: Anesthesia Preprocedure Evaluation Filed: 06/02/2024 10:07 Note Text: ANESTHESIOLOGY DAY OF SURGERY NOTE : 1955 Procedure Information Anesthesia Start Date/Time: 06/02/24 1001 Procedures: PHACOEMULSIFICATION CATARACT IMPLANT INTRAOCULAR LENS W/O ENDOSCOPIC CYCLOPHOTOCOAGULATION (Left: Eye) OPHTHALMIC BIOMETRY BY PARTIAL COHERENCE INTERFEROMETRY W/INTRAOCULAR LENS POWER CALCULATION (Left: Eye) Location: [address] Surgeons: Oliver Shepherd MD Estimated body mass index is 50.81 kg/m? as calculated from the following: Height as of 05/19/24: 157.5 cm (5' 2 ). Weight as of 05/19/24: 126 kg (277 lb 12.5 oz). Most recent hematocrit and potassium results: Hematocrit 36.5 06/01/2024 Potassium 4.5 06/01/2024 Relevant Problems CARDIO (+) PETERSON (dyspnea on exertion) (+) Primary hypertension (+) Pulmonary embolism (HCC) (+) Undiagnosed cardiac murmurs GI (+) GERD (gastroesophageal reflux disease) -RENAL (+) Stage 3a chronic kidney disease (HCC) PULMONARY (+) COPD (chronic obstructive pulmonary disease) ([facility]) (+) PETERSON (dyspnea on exertion) Other (+) Arthritis of both knees (+) RA (rheumatoid arthritis) ([facility]) I - PHYSICAL EVALUATION AIRWAY Patient intubated: No. Tracheostomy tube not present Mallampati: III. TM distance: >3 FB. Neck ROM: full ROM without neurological symptoms. Mouth opening: adequate. Short neck: no. Thick neck: yes DENTAL Dental findings: missing tooth/teeth. II - ANESTHESIA PLAN ASA Score: 3 Anesthetic Plan: MAC NPO Status: adequate Beta Rajan Monitoring Plan Monitoring plan: standard ASA. Post Procedure Analgesic Plan Informed Consent Anesthetic risks, benefits, alternatives, personnel and consent discussed: yes. Patient / Responsible Green Party agrees to proceed: yes Patient / Surrogate agrees to blood products: blood products not planned DNR status not reviewed with patient and/or family prior to surgery. Significant changes in the patient condition since the History and Physical, not otherwise documented in primary service progress note: no. Vitals Value Taken Time BP 131/62 06/02/24901 Pulse Resp 16 06/02/24901 Temp 36.4 ?C (97.6 ?F) 06/02/24901 SpO2 100 % 06/02/24901 Facility-Administered Medications as of 06/02/2024 Medication Dose Route Frequency - NaCl 0.9% iv infusion 30 mL/hr INTRAVENOUS CONTINUOUS - [COMPLETED] lidocaine 4% 1 Drop ophthalmic solution (XYLOCAINE) 1 Drop LEFT EYE q 5 MIN - [COMPLETED] Povidone-Iodine 5 % 30 mL ophth soln (BETADINE) 30 mL LEFT EYE ONCE - [COMPLETED] balanced salts 15 mL (BSS) 15 mL LEFT EYE ONCE - [COMPLETED] tropicamide 1 % 1 Drop (MYDRIACYL) 1 Drop LEFT EYE q 5 MIN - [COMPLETED] PHENYLephrine 2.5 % 1 Drop (AK-DILATE, ARMIDA-SYNEPHRINE) 1 Drop LEFT EYE q 5 MIN Outpatient Medications as of 06/02/2024 Medication Sig - NAPROXEN ORAL Take by mouth two times a day. - cholecalciferol (VITAMIN D-3) 5,000 unit tab Take 5,000 Units by mouth once daily. - spironolactone (ALDACTONE) 25 mg tablet Take 1 tablet by mouth every afternoon. - atorvastatin (LIPITOR) 20 mg tablet Take 1 tablet by mouth once daily. (Patient taking differently: Take 40 mg by mouth once daily.) - losartan (COZAAR) 50 mg tablet Take [...] mg by mouth two times a day. I have interviewed and examined the patient. I have reviewed the medical record and/or the pre-anesthesia evaluation, pertinent labs, and test results. This contains updated information obtained within 48 hours of Surgery/Procedure. SIGNATURE: Berta Kent MD PATIENT NAME: Yue Caputo DATE: June 02, 2024 TIME: 10:06 AM CSN: [id number] OPERATIVE NO Observed: 06/02/2024 10:01 AM Status: COMPLETED Source: [facility] ID: [id number] Author: OLIVER SHEPHERD MD Service: Ophthalmology Author Type: Physician Type: Operative Report Filed: 06/02/2024 10:23 Note Text: OPERATIVE/PROCEDURE REPORT Patient Name: Yue Caputo LOG ID: [id number] Surgery/Procedure Date: 06/02/2024 Incision/Procedure Start Time: 10:11 AM Incision Close/Procedure End Time: 10:21 AM Surgeon(s)/Proceduralist(s) and Riverboat Master(s): Surgeons and Role: * Oliver Shepherd MD - Primary * Dereje Chew MD - Resident - Assisting Procedure(s): Procedure(s) (LRB): PHACOEMULSIFICATION CATARACT IMPLANT INTRAOCULAR LENS W/O ENDOSCOPIC CYCLOPHOTOCOAGULATION (Left) OPHTHALMIC BIOMETRY BY PARTIAL COHERENCE INTERFEROMETRY W/INTRAOCULAR LENS POWER CALCULATION (Left) Preoperative Diagnosis: Pre-Op Diagnosis Codes: * Combined forms of age-related cataract of left eye Postoperative Diagnosis: same Operative Indications: The patient has a functionally significant cataract. The risks, benefits, and alternatives of cataract extraction with intraocular lens implantation were discussed with the patient who agreed to have the procedure done. Anesthesia: Monitored Anesthesia Care Procedure Details: Preoperatively, 2% lidocaine gel was instilled into the operative eye. The patient was taken to the operating room in a supine position on the operating table. The operative eye was then prepped with povidone-iodine and draped in the usual sterile fashion for intraocular surgery. Under the operating microscope, a temporal paracentesis was created. A small amount of preservative-free 1% lidocaine was instilled into the anterior chamber. The anterior chamber was then deepened with Viscoat. A temporal triplanar clear corneal incision was created with a 2.4 mm keratome. A cystitome and Utrata forceps were used to fashion a continuous curvilinear capsulorrhexis. Balanced salt solution was used to hydrodissect and hydrodelineate the nucleus. The phacoemulsification tip was introduced into the eye, and anterior cortex was aspirated. The nucleus was removed with CDE 3.26 . Irrigation and aspiration was used to remove residual cortex. The capsular bag was examined and found to be intact. The anterior chamber was deepened with Provisc, and a 16.5 diopter, model clareon lens was injected into the capsular bag. Irrigation and aspiration was used to remove residual viscoelastic. The wounds were hydrated, examined, and found to be watertight. 0.1 cc of cefuroxime was injected into the anterior chamber. The drapes were removed, and ofloxacin 0.3% was instilled into the operative eye. The patient was taken to the recovery area in stable condition. I/primary surgeon/proceduralist performed the procedure with assistance. Estimated Blood Loss: minimal Specimens: * No specimens in log * Implantable Devices: Implant Name Type Inv. Item Serial No. [employer] Lot No. LRB No. Used Action Model No. [id number] [facility] [id number] Intraocular Lens [id number] [facility] [employer]OME [id number] [facility] Left 1 Implanted [id number] I have reviewed the images and report from the Ophthalmic Biometry 06/02/2024 to determine the Intraocular lens Power Calculation for the IOL lens implant. I have interpreted and agree with the calculation of the IOL as listed below. Drains: None Complications: None Oliver Shepherd MD June 02, 2024 10:22 AM COMP METAB 2000 PNL SERPL Collected: 1:56 PM Status: F Source: [facility] Order Comment: Specimen Type : BLOOD SPECIMEN Ordering Facility: [facility] Address: [address] [place] [address] TYPE CODE TESTS RESULT OUT OF RANGE REFERENCE UNITS LAB 2885-2(LOINC) Prot SerPl-mCnc 6.7 6.3-8.0 g/dL LAB 1751-7(LOINC) Albumin SerPl-mCnc 4.0 3.9-4.9 g/dL LAB 30710-5(LOINC) Calcium SerPl-mCnc 9.8 8.5-10.2 mg/dL LAB 1975-2(LOINC) Bilirub SerPl-mCnc 0.3 0.2-1.3 mg/dL LAB 6768-6(LOINC) ALP SerPl-cCnc 90 34-123 U/L LAB 1920-8(LOINC) AST SerPl-cCnc 17 13-35 U/L LAB 1742-6(LOINC) ALT SerPl-cCnc 18 7-38 U/L LAB 2345-7(LOINC) Glucose SerPl-mCnc 146 High 74-99 mg/dL Result Comment: The [place] Diabetes Association (ADA) provides [...] [place] Diabetes Association. Diabetes Care. 2016.39(Suppl 1). LAB 3094-0(LOINC) BUN SerPl-mCnc 29 High 7-21 mg/ dL LAB 2160-0(LOINC) Creat SerPl-mCnc 1.92 High 0.58-0.96 mg/dL LAB 2951-2(LOINC) Sodium SerPl-sCnc 138 136-144 mmol/L LAB 2823-3(LOINC) Potassium SerPl-sCnc 4.5 3.7-5.1 mmol/L LAB 2075-0(LOINC) Chloride SerPl-sCnc 104 98-107 mmol/L LAB 2028-9(LOINC) CO2 SerPl-sCnc 26 22-30 mmo l/L LAB 44513-4(LOINC) Anion Gap SerPl-sCnc 8 8-15 mmol/L LAB 75173-7(LOINC) Creatinine + eGFR Pnl SerPlBld 28 Low >=60 mL/min/1 .73m??? Result Comment: Estimated Gl omerular Filtration Rate (eGFR) is calculated using the 2020 CKD-EPI creatinine equation. This equation utilizes serum creatinine, sex, and age as parameters. The creatinine assay has traceable calibration to isotope dilution-mass spectrometry. Refer to KDIGO guidelines for clinical interpretation. In patients with unstable renal function, e.g. those with acute kidney injury, the eGFR may not accurately reflect actual GFR. Performed By: #### 48189-5 # ### [facility] CLIA [id number] [address] [place] [address] TSH SERPL-ACNC Collected: 1:56 PM Status: F Source: [facility] Comment: Specimen Type : BLOOD SPECIMEN Ordering Facility: [facility] Address: [address] [place] [address] TYPE CODE TESTS RESULT OUT OF RANGE REFERENCE UNITS LAB 3016-3([facility]) TSH SerPl-aCnc 4.750 High 0.270-4.200 mIU/L Performed By: #### 3016-3 ## ## [facility] CLIA [id number] [address] [place] [address] [place] CBC W AUTO DIFF BLD Collected: 06/01/2024 1:[address] atus: F Source: [facility] Comment: Specimen Type : BLOOD SPECIMEN Ordering Facility: [facility] Address: [address] [place] [address] TYPE CODE TESTS RESULT OUT OF RANGE REFERENCE UNITS LAB 6690-2([facility]) WBC # Bld Auto 4.40 3.70-11.00 k/uL LAB 789-8([facility]) RBC # Bld Auto 3.83 Low 3.90-5.20 m/ uL LAB 718-7([facility]) Hgb Bld-mCnc 12.1 11.5-15.5 g/dL LAB 4544-3([facility]) Hct VFr Bld Auto 36.5 36.0-46.0 % LAB 787-2([facility]) MCV RBC Auto 95.3 80.0-100.0 fL LAB 785-6([facility]) MCH RBC Qn Auto 31.6 26.0-34.0 p g LAB 786-4([facility]) MCHC RBC Auto-mCnc 33.2 30.5-36.0 g/dL LAB 58751-9([facility]) RDW RBC-Rto 14.0 11.5-15.0 % LAB 777-3([facility]) Platelet # Bld Auto 237 150-400 k/uL LAB 70077-0([facility]) PMV Bld Auto 9.0 9.0-12.7 fL LAB 770-8([facility]) Neutrophils/leuk NFr Bld Auto 62.4 % LAB 751-8([facility]) Neutrophils # Bld Auto 2.75 1.45-7.50 k/uL LAB 736-9([facility]) Lymphocytes/leuk NFr Bld Auto 20.9 % LAB 731-0([facility]) Lymphocytes # Bld Auto 0.92 Low 1.00-4.00 k/uL LAB 5905-5([facility]) Monocytes/leuk NFr Bld Auto 5.5 % LAB 742-7([facility]) Monocytes # Bld Auto 0.24 <0.87 k/uL LAB 713-8([facility]) Eosinophil/leuk NFr Bld Auto 9.8 % LAB 711-2([facility]) Eosinophil # Bld Auto 0.43 <0.46 k/uL LAB 706-2([facility]) Basophils/leuk NFr Bld Auto 0.9 % LAB 704-7([facility]) Basophils # Bld Auto 0.04 <0.11 k/uL LAB 62583-6(LOINC) Imm Granulocytes/tanisha k NFr Bld Auto 0.5 % LAB 62999-9(LOINC) Imm Granulocytes # Bld Auto <0.03 <0.10 k/uL LAB 35280-6(LOINC) nRBC/100 WBC Bld-Rto 0.0 /100 WBC LAB 771-6(LOINC) nRBC # Bld Auto <0.01 <0.01 k/u L LAB 72417-6([facility]) Differential method Bld Auto Performed By: #### 69008-7 # ### [facility] CLIA [id number] [address] [place] [address] ALLERGIES DATE TYPE / CODE NAME / CODE REACTION SEVERITY SOURCE 01/06/2024 Drug Allergy/4160 19012(SNOMED CT) adhesive/S851987 245(RXNORM) Rash Unknown [facility] 01/06/2024 Drug Allergy/4160 19310(SNOMED CT) sulfacetamide/F0 74509363(RXNORM) Rash Unknown [facility] 07/29/2023 DRUG/1752966 03(SNOMED CT) ADHESIVE TAPE-SILICONES Rash [facility] 07/29/2023 DRUG/9432825 03(SNOMED CT) ADHESIVE TAPE-SILICONES RASH [facility] 04/02/2023 Drug Class~Enviro n~NON-CBORD/ 895222132(SN OMED CT) ADHESIVE Other ( See Comments) [facility] 12/20/2018 DRUG INGREDI~NON- CBORD/692332 003(SNOMED CT) FENTANYL [facility] 12/20/2018 Drug Class~NON-CB ORD/25249070 3(SNOMED CT) SULFA (SULFONAMIDE ANTIBIOTICS) Rash [facility] 04/01/2018 DRUG INGREDI/4195 [id number](SNOMED CT) FENTANYL INTOLERANCE [facility] 03/08/2007 Drug Class/779008 003(SNOMED CT) SULFA (SULFONAMIDE ANTIBIOTICS) UNKNOWN [facility] ENCOUNTERS ADMIT/DISCHARGE ACCOUNT NUMBER ADMITTING ENCOUNTER CLASS LOCATION SOURCE 05/24/2025/05/24/[id number] 05/17/2025/05/17/20 25 [id number] [facility] HospitalBuil ding:RHIANNA [facility] 05/17/2025/05/17/20 25 [id number] [facility] HospitalBuil ding:ERMIAS [facility] 05/17/2025/05/17/20 25 [id number] [facility] HospitalBu[facility] ding:ERMIAS [facility] 04/16/2025/04/16/20 25 [id number] [facility] Hospital[facility] ding:RHIANNA [facility] 04/16/2025/04/16/20 25 [id number] [facility] Hospital[facility] ding:ERMIAS [facility] 04/13/2025/04/13/20 25 [id number] [facility] HospitalBuil ding:WILLIE [facility] 04/05/2025/04/05/20 25 [id number] [address] [place] [address] 04/05/2025/04/05/20 25 [id number] [facility] HospitalBuil ding:SUSY [facility] 04/01/2025 [id number] [facility] HospitalBuil ding:WILLIE [facility] 04/01/2025 [id number] [facility] 03/30/2025/03/30/20 25 [id number] [facility] HospitalBuil ding:SALB [facility] 03/30/2025/03/30/20 25 [id number] [facility] HospitalBuil ding:HESA [facility] 03/19/2025/03/19/20 25 [id number] [facility] HospitalBuil ding:NOPA [facility] 03/05/2025/03/05/20 25 [id number] [facility] HospitalBuil ding:AMPL [facility] 03/05/2025/03/05/20 25 [id number] Ambulatory Building:[facility] 02/23/2025 [id number] Andres MANN [facility]MOUNIKASGKrystal m: AVSGBed: 06 [facility] 02/19/2025/02/20/20 25 [id number] [facility] HospitalBuil ding:NPAV [facility] 02/15/2025/02/16/20 25 [id number] [facility] HospitalBuil ding:BMINO [facility] 02/15/2025 [id number] [facility] HospitalBuil ding:ROAV [facility] 02/15/2025/02/16/20 25 [id number] [facility] HospitalBuil ding:AVPL [facility] 02/15/2025/02/16/20 25 [id number] [facility] HospitalBuil ding:ORAV [facility] 12/30/2024/12/31/19 25 [id number] [facility] HospitalBuil ding:HEMOUNIKA [facility] 12/30/2024/12/31/19 25 [id number] [facility] HospitalBuil ding:HEMOUNIKA [facility] 12/24/2024 [id number] [facility] HospitalBuil ding:HESA [facility] 12/24/2024 [id number] [facility] HospitalBuil ding:HESA [facility] 10/15/2024/10/15/19 25 [id number] [facility] HospitalBuil ding:LNGS [facility] 10/13/2024/10/13/19 25 [id number] Flip Jenkins [facility] 10/02/2024/11/24/19 25 [id number] [facility] HospitalBuil ding:WILLIE [facility] 10/02/2024 [id number] [facility] HospitalBuil ding:HEMOUNIKA [facility] 09/30/2024/09/30/19 25 [id number] Maria A Garcia [facility] 09/29/2024/09/29/19 25 [id number] [facility] HospitalBuil ding:LA NENA [facility] 09/11/2024/09/11/19 [id number] [facility] HospitalBuil ding:LA NENA [facility] 09/01/2024/09/01/19 [id number] RADHA CABRERA [facility]:FVIRRoo m: POOLBed: 08 [facility] 08/12/2024 [id number] [facility] HospitalBuil ding:COLTON [facility] 07/17/2024/07/17/20 24 [id number] [facility] HospitalBuil ding:LA NENA [facility] 07/16/2024/09/08/19 25 [id number] [facility] HospitalBuil ding:WILLIE [facility] 07/15/2024/07/15/20 24 [id number] [facility] HospitalBuil ding:COLTON [facility] 07/14/2024/07/14/20 24 [id number] [facility] HospitalBuil ding:MERRITT [facility] 07/14/2024/07/14/20 24 [id number] [facility] HospitalBuil ding:MARIEL [facility] 07/06/2024/07/06/20 24 [id number] [facility] HospitalBuil ding:LA NENA [facility] 07/06/2024 [id number] [facility] HospitalBuil ding:LJ [facility] 06/23/2024/06/23/20 24 [id number] [facility] HospitalBuil ding:MERRITT [facility] 06/18/2024/06/18/20 24 [id number] [facility] HospitalBuil ding:GUS [facility] 06/18/2024/06/18/20 24 [id number] [facility] HospitalBuil ding:MERRITT [facility] 06/17/2024/06/17/20 24 [id number] OLIVER SHEPHERD [facility] HospitalBuil ding:W768Wwf m: SINTIA-008Bed: L [facility] 06/10/2024/06/10/20 24 [id number] Ambulatory [facility] 06/09/2024/06/09/20 24 [id number] [facility] HospitalBuil ding:MERRITT [facility] 06/03/2024/06/03/20 24 [id number] [facility] HospitalBuil ding:MCKAYLAMOUNIKA [facility] 06/03/2024/06/03/20 24 [id number] [facility] HospitalBuil ding:MERRITT [facility] 06/02/2024/06/02/20 24 [id number] [address] SHE[address]D [facility] ding:H685Qaj m: SINTIA-013Bed: L010-13 [facility] 06/01/2024/06/01/[id number] [facility] ding:LA NENA [facility] 06/01/2024 [id number] [facility] HospitalBuil ding:LJ [facility] PAYERS ENCOUNTER GUARANTOR PAYER SUBSCRIBER SOURCE 05/24/2025 Primary Insurance:MEDICARE A AND BPolicy Number: [id number] Date:1599-72-37Wxag Name:Deedee VASQUEZ: [id number] [place] [address] [facility] 05/24/2025 Secondary Insurance:[employer] [place] MEDICARE SUPPLEMENTPolicy Number: [id number] Date:1486-47-01Mppk Name:Surinder VASQUEZ: [id number] [place] [address] [facility] 05/17/2025 Primary Insurance:MEDICARE A AND BPolicy Number: [id number] Date:6840-36-83Yvxv Name:Deedee VASQUEZ: [id number] [place] [address] [facility] 05/17/2025 Secondary Insurance:[place] [place] MEDICARE SUPPLEMENTPolicy Number: [id number] Date:6832-01-37Zcbz Name:Surinder LOPEZB: [id number] [place] [address] [facility] 05/17/2025 Primary Insurance:MEDICARE A AND BPolicy Number: [id number] Date:4427-04-84Doga Name:Deedee CAPUTOB: [id number] [place] [address] [facility] 05/17/2025 Secondary Insurance:[employer] [place] MEDICARE SUPPLEMENTPolicy Number: [id number] Date:0238-64-75Hpcd Name:Surinder CAPUTOB: [id number] [place] [address] [facility] 05/17/2025 Primary Insurance:MEDICARE A AND BPolicy Number: [id number] Date:1148-47-11Wnnh Name:Deedee CAPUTOB: [id number] [place] [address] [facility] 05/17/2025 Secondary Insurance:[employer] [place] MEDICARE SUPPLEMENTPolicy Number: [id number] Date:5864-90-21Hqnp Name:Surinder CAPUTOB: [id number] [place] [address] [facility] 04/16/2025 Primary Insurance:MEDICARE A AND BPolicy Number: [id number] Date:7186-32-96Trmf Name:Deedee CAPUTOB: [id number] [place] [address] [facility] 04/16/2025 Secondary Insurance:[employer] [place] MEDICARE SUPPLEMENTPolicy Number: [id number] Date:7747-38-87Edpc Name:Surinder CAPUTOB: [id number] [place] [address] [facility] 04/16/2025 Primary Insurance:MEDICARE A AND BPolicy Number: [id number] Date:9795-72-88Bcsn Name:Deedee LOPEZB: [id number] [place] [address] [facility] 04/16/2025 Secondary Insurance:[employer] [place] MEDICARE SUPPLEMENTPolicy Number: [id number] Date:6666-24-12Gqav Name:Surinder CAPUTOB: [id number] [place] [address] [facility] 04/13/2025 Primary Insurance:MEDICARE A AND BPolicy Number: [id number] Date:3915-54-02Rcxj Name:Deedee CAPUTOB: [id number] [place] [address] [facility] 04/13/2025 Secondary Insurance:[employer] [place] MEDICARE SUPPLEMENTPolicy Number: [id number] Date:8972-35-02Htap Name:Surinder Campos BIGGMIGUELSTORMY: [id number] [place] [address] [facility] 04/05/2025 YUE PERKINS CHRISTINA: [address] [address]Eat: (HP) Primary Insurance:MEDICARE PART A & BPolicy Number: [id number] Date:2019-10-25 YUE PERKINS JOHNB: [id number] [address]Fgm: (HP) (WP) [facility] 04/05/2025 Secondary Insurance:[employer] [place] [employer] SUPPLEMENT PLANPolicy Number: [id number] Date:2021-02-23 YUE VASQUEZ: [id number], [place] [address]Cam: (HP) () [facility] 04/05/2025 Primary Insurance:MEDICARE A AND BPolicy Number: [id number] Date:9815-90-43Selq Name:Deedee CAPUTOB: [id number] [place] [address] [facility] 04/05/2025 Secondary Insurance:[employer] [place] MEDICARE SUPPLEMENTPolicy Number: [id number] Date:9708-23-98Feiv Name:Surinedr CAPUTOB: [id number] [place] [address] [facility] 04/01/2025 Primary Insurance:MEDICARE A AND BPolicy Number: [id number] Date:0859-20-22Rexm Name:Deedee ACPUTOB: [id number] [place] [address] [facility] 04/01/2025 Secondary Insurance:[employer] [place] MEDICARE SUPPLEMENTPolicy Number: [id number] Date:7522-99-92Zqbt Name:Surinder CAPUTOB: [id number] [place] [address] [facility] 04/01/2025 Primary Insurance:MEDICARE A AND BPolicy Number: [id number] Date:5029-16-00Urzv Name:Deedee CAPUTODOB: [id number] [place] [address] [facility] 04/01/2025 Secondary Insurance:[employer] [place] MEDICARE SUPPLEMENTPolicy Number: [id number] Date:8175-70-09Rvfd Name:Surinder Campos BIGGBrianTREVONLUCIEB: [id number] [place] [address] [facility] 03/30/2025 Primary Insurance:MEDICARE A AND BPolicy Number: [id number] Date:7216-01-72Nvuq Name:Deedee CAPUTOB: [id number] [place] [address] [facility] 03/30/2025 Secondary Insurance:[employer] [place] MEDICARE SUPPLEMENTPolicy Number: [id number] Date:9184-23-40Enxz Name:Surinder PORRASVAZQUEZBrianTREVONLUCIEB: [id number] [place] [address] [facility] 03/30/2025 Primary Insurance:MEDICARE A AND BPolicy Number: [id number] Date:2464-12-94Byvp Name:Deedee PORRASVAZQUEZBrianTREVONLUCIEB: [id number] [place] [address] [facility] 03/30/2025 Secondary Insurance:[employer] [place] MEDICARE SUPPLEMENTPolicy Number: [id number] Date:9538-03-20Byud Name:Surinder Campos JOHNB: [id number] [place] [address] [facility] 03/19/2025 Primary Insurance:MEDICARE A AND BPolicy Number: [id number] Date:7697-78-88Votf Name:Deedee Campos JOHNB: [id number] [place] [address] [facility] 03/19/2025 Secondary Insurance:[employer] [place] MEDICARE SUPPLEMENTPolicy Number: [id number] Date:4228-11-72Ghre Name:Surinder Campos JOHNB: [id number] [place] [address] [facility] 03/05/2025 Primary Insurance:MEDICARE A AND BPolicy Number: [id number] Date:6706-12-57Vjsq Name:Deedee Campos CHRISTINA: [id number] [address] [facility] 03/05/2025 Secondary Insurance:[employer] [place] MEDICARE SUPPLEMENTPolicy Number: [id number] Date:7446-08-56Auxt Name:Surinder CAPUTOB: [id number] [facility] [place] [address] [facility] 03/05/2025 YUE CAPUTOB: [place] [address]Ikq: () Primary Insurance:MEDICAREPolic y Number: [id number] Date:8476-73-09Lalr Name:Medicare DIANA J WOLLENSLEGELB: [id number] [place] [address] [facility] 03/05/2025 Secondary Insurance:[place] OF [place] [facility] Number: [id number] Date:2021-02-23 YUE CAPUTOB: [id number] [facility] [place] [address] [facility] 02/23/2025 Primary Insurance:MEDICARE A AND BPolicy Number: [id number] Date:6761-20-21Fmpj Name:Deedee PORRASVAZQUEZBrianTREVONLUCIEB: [id number] [facility] [place] [address] [facility] 02/23/2025 Secondary Insurance:[employer] [place] MEDICARE SUPPLEMENTPolicy Number: [id number] Date:5680-00-59Yjfn Name:Surinder CAPUTOB: [id number] [facility] [place] [address] [facility] 02/19/2025 Primary Insurance:MEDICARE A AND BPolicy Number: [id number] Date:6203-76-20Xbym Name:Deedee CAPUTOB: [id number] [place] [address] [facility] 02/19/2025 Secondary Insurance:[employer] [place] MEDICARE SUPPLEMENTPolicy Number: [id number] Date:2243-03-71Vlxr Name:Surinder CAPUTOB: [id number] [place] [address] [facility] 02/15/2025 Primary Insurance:MEDICARE A AND BPolicy Number: [id number] Date:2490-12-10Xtqv Name:Deedee Campos BIGGBrianMARQUITAB: [id number] [place] [address] [facility] 02/15/2025 Secondary Insurance:[employer] [place] MEDICARE SUPPLEMENTPolicy Number: [id number] Date:6808-25-65Vbgd Name:Surinder Campos JOHNB: [id number] [place] [address] [facility] 02/15/2025 Primary Insurance:MEDICARE A AND BPolicy Number: [id number] Date:9687-27-60Sknw Name:Deedee Campos CHRISTINA: [id number] [place] [address] [facility] 02/15/2025 Secondary Insurance:[employer] [place] MEDICARE SUPPLEMENTPolicy Number: [id number] Date:4897-46-89Opaa Name:Surinder Campos JOHNB: [id number] [place] [address] [facility] 02/15/2025 Primary Insurance:MEDICARE A AND BPolicy Number: [id number] Date:4725-05-92Ytrk Name:Deedee Campos NETOLUCIEB: [id number] [place] [address] [facility] 02/15/2025 Secondary Insurance:[employer] [place] MEDICARE SUPPLEMENTPolicy Number: [id number] Date:3676-14-77Hinz Name:Surinder LOPEZB: [id number] [place] [address] [facility] 02/15/2025 Primary Insurance:MEDICARE A AND BPolicy Number: [id number] Date:7320-43-61Glxg Name:Deedee LOPEZB: [id number] [place] [address] [facility] 02/15/2025 Secondary Insurance:[employer] [place] MEDICARE SUPPLEMENTPolicy Number: [id number] Date:3196-05-54Fuqk Name:Surinder LOPEZB: [id number] [place] [address] [facility] 12/30/2024 Primary Insurance:MEDICARE A AND BPolicy Number: [id number] Date:6641-77-53Rkse Name:Deedee LOPEZB: [id number] [place] [address] [facility] 12/30/2024 Secondary Insurance:[employer] [place] MEDICARE SUPPLEMENTPolicy Number: [id number] Date:3343-69-22Jkpg Name:Surinder LOPEZB: [id number] [place] [address] [facility] 12/30/2024 Primary Insurance:MEDICARE A AND BPolicy Number: [id number] Date:7171-49-13Kytx Name:Deedee CAPUTOB: [id number] [place] [address] [facility] 12/30/2024 Secondary Insurance:[employer] [place] MEDICARE SUPPLEMENTPolicy Number: [id number] Date:6977-02-52Iihs Name:Surinder CAPUTOB: [id number] [place] [address] [facility] 12/24/2024 Primary Insurance:MEDICARE A AND BPolicy Number: [id number] Date:2732-57-86Ljuh Name:Deedee VASQUEZ: [id number] [place] [address] [facility] 12/24/2024 Secondary Insurance:[employer] [place] MEDICARE SUPPLEMENTPolicy Number: [id number] Date:6450-94-37Nghe Name:Surinder LOPEZB: [id number] [place] [address] [facility] 12/24/2024 Primary Insurance:MEDICARE A AND BPolicy Number: [id number] Date:6425-03-55Sifk Name:Deedee LOPEZB: [id number] [place] [address] [facility] 12/24/2024 Secondary Insurance:[employer] [place] MEDICARE SUPPLEMENTPolicy Number: [id number] Date:5702-11-34Sxmo Name:Suridner LOPEZB: [id number] [place] [address] [facility] 10/15/2024 Primary Insurance:MEDICARE A AND BPolicy Number: [id number] Date:1204-37-68Fhtd Name:Deedee LOPEZB: [id number] [place] [address] [facility] 10/15/2024 Secondary Insurance:[employer] [place] MEDICARE SUPPLEMENTPolicy Number: [id number] Date:9128-63-50Rmhh Name:Surinder LOPEZB: [id number] [place] [address] [facility] 10/13/[address] [place] [address]Bwb: () Primary Insurance:MedicarePolic y Number: [id number] Date:2024-08-13 Yue LopezB: [id number] [place] [address]Heq: () [facility] 10/13/2024 Secondary Insurance:[place] Number: [id number] Date:2024-08-13 Yue CaputoB: [id number] [place] [address]Fux: () [facility] 10/13/2024 Tertiary Insuran ce:Self PayPolicy Number: Effective Date:2024-08-13 [facility] Primary Insurance:MEDICARE A AND BPolicy Number: [id number] Date:5540-67-58Hfvu Name:Deedee Campos BIGGBrianTREVONLUCIESTORMY: [id number] [place] [address] [facility] 10/02/2024 Secondary Insurance:[employer] [place] MEDICARE SUPPLEMENTPolicy Number: [id number] Date:5325-89-21Lqfv Name:Surinder PORRASVAZQUEZMIGUELB: [id number] [place] [address] [facility] 10/02/2024 Primary Insurance:MEDICARE A AND BPolicy Number: [id number] Date:3008-18-91Dexi Name:Deedee PORRASVAZQUEZMIGUELB: [id number] [place] [address] [facility] 10/02/2024 Secondary Insurance:[employer] [place] MEDICARE SUPPLEMENTPolicy Number: [id number] Date:3079-54-50Rwyb Name:Surinder Campos NETOLUCIEB: [id number] [place] [address] [facility] 09/30/2024 Yue Campos [address] [place] [address]Scn: () Primary Insurance:MedicarePolic y Number: [id number] Date:2024-09-07 Yue CaputoB: [id number] [place] [address]Bwi: () [facility] 09/30/2024 Secondary Insurance:[place] [employer] [facility] Number: [id number] Date:2024-09-07 Yue PorrasvazquezbriantrevonlucieB: [id number] [place] [address]Vag: () [facility] 09/30/2024 Tertiary Insuran ce:Self PayPolicy Number: Effective Date:2024-09-08 [facility] Primary Insurance:MEDICARE A AND BPolicy Number: [id number] Date:7763-31-69Gywn Name:Deedee Campos CHRISTINA: [id number] [place] [address] [facility] 09/29/2024 Secondary Insurance:[employer] [place] MEDICARE SUPPLEMENTPolicy Number: [id number] Date:5635-56-50Wkjq Name:Surinder Campos JOHNB: [id number] [place] [address] [facility] 09/11/2024 Primary Insurance:MEDICARE A AND BPolicy Number: [id number] Date:2033-90-74Luzn Name:Deedee Campos CHRISTINA: [id number] [place] [address] [facility] 09/11/2024 Secondary Insurance:[employer] [place] MEDICARE SUPPLEMENTPolicy Number: [id number] Date:4453-01-98Vcyk Name:Surinder Campos CHRISTINA: [id number] [place] [address] [facility] 09/01/2024 Primary Insurance:MEDICARE A AND BPolicy Number: [id number] Date:8865-37-06Xrjy Name:Deedee LOPEZB: [id number] [address] [place] [address] [facility] 09/01/2024 Secondary Insurance:[employer] [place] [employer] MEDICARE SUPPLEMENTPolicy Number: [id number] Date:7998-48-36Nkdz Name:Surinder CAPUTOB: [id number] [facility] [place] [address] [facility] 08/12/2024 Primary Insurance:MEDICARE A AND BPolicy Number: [id number] Date:8953-99-82Xrbe Name:Deedee CAPUTOB: [id number] [address] [facility] [place] [address] [facility] 08/12/2024 Secondary Insurance:[employer] [place] MEDICARE SUPPLEMENTPolicy Number: [id number] Date:0316-80-69Udub Name:Surinder CAPUTOB: [id number] [facility] [place] [address] [facility] 07/17/2024 Primary Insurance:MEDICARE A AND BPolicy Number: [id number] Date:1363-23-37Qxju Name:Deedee CAPUTOB: [id number] [place] [address] [facility] 07/17/2024 Secondary Insurance:[employer] [place] MEDICARE SUPPLEMENTPolicy Number: [id number] Date:0335-69-17Vdqs Name:Surinder CAPUTOB: [id number] [place] [address] [facility] 07/16/2024 Primary Insurance:MEDICARE A AND BPolicy Number: [id number] Date:4613-52-99Pnjy Name:Deedee LOPEZB: [id number] [place] [address] [facility] 07/16/2024 Secondary Insurance:[employer] [place] MEDICARE SUPPLEMENTPolicy Number: [id number] Date:2126-11-93Sedn Name:Surinder CAPUTOB: [id number] [place] [address] [facility] 07/15/2024 Primary Insurance:MEDICARE A AND BPolicy Number: [id number] Date:6403-70-39Iggb Name:Deedee LOPEZB: [id number] [place] [address] [facility] 07/15/2024 Secondary Insurance:[employer] [place] MEDICARE SUPPLEMENTPolicy Number: [id number] Date:6732-47-10Zhlc Name:Surinder CAPUTOB: [id number] [place] [address] [facility] 07/14/2024 Primary Insurance:MEDICARE A AND BPolicy Number: [id number] Date:4702-29-46Akim Name:Deedee CAPUTOB: [id number] [place] [address] [facility] 07/14/2024 Secondary Insurance:[employer] [place] MEDICARE SUPPLEMENTPolicy Number: [id number] Date:6157-54-96Ktfx Name:Surinder CAPUTOB: [id number] [place] [address] [facility] 07/14/2024 Primary Insurance:MEDICARE A AND BPolicy Number: [id number] Date:8779-22-94Sjbs Name:Deedee CAPUTOB: [id number] [place] [address] [facility] 07/14/2024 Secondary Insurance:[employer] [place] MEDICARE SUPPLEMENTPolicy Number: [id number] Date:0124-57-29Hppt Name:Surinder LOPEZB: [id number] [place] [address] [facility] 07/06/2024 Primary Insurance:MEDICARE A AND BPolicy Number: [id number] Date:1957-10-85Mhqj Name:Deedee CAPUTOB: [id number] [place] [address] [facility] 07/06/2024 Secondary Insurance:[employer] [place] MEDICARE SUPPLEMENTPolicy Number: [id number] Date:3497-41-94Fxir Name:Surinder CAPUTOB: [id number] [place] [address] [facility] 07/06/2024 Primary Insurance:MEDICARE A AND BPolicy Number: [id number] Date:4172-66-47Ikwo Name:Deedee PORRASVAZQUEZBrianTREVONLUCIEB: [id number] [place] [address] [facility] 07/06/2024 Secondary Insurance:[employer] [place] MEDICARE SUPPLEMENTPolicy Number: [id number] Date:1961-46-28Jorr Name:Surinder PORRASVAZQUEZBrianTREVONLUCIEB: [id number] [place] [address] [facility] 06/23/2024 Primary Insurance:MEDICARE A AND BPolicy Number: [id number] Date:2278-32-72Duyj Name:Deedee CAPUTOB: [id number] [place] [address] [facility] 06/23/2024 Secondary Insurance:[employer] [place] MEDICARE SUPPLEMENTPolicy Number: [id number] Date:6516-09-20Bwes Name:Surinder Campos BIGGMIGUELB: [id number] [place] [address] [facility] 06/18/2024 Primary Insurance:MEDICARE A AND BPolicy Number: [id number] Date:5784-07-79Wywh Name:Deedee CAPUTOB: [id number] [place] [address] [facility] 06/18/2024 Secondary Insurance:[employer] [place] MEDICARE SUPPLEMENTPolicy Number: [id number] Date:5948-07-14Kddj Name:Surinder Campos JOHNB: [id number] [place] [address] [facility] 06/18/2024 Primary Insurance:MEDICARE A AND BPolicy Number: [id number] Date:9399-50-72Deot Name:Deedee Campos JOHNB: [id number] [place] [address] [facility] 06/18/2024 Secondary Insurance:[employer] [place] MEDICARE SUPPLEMENTPolicy Number: [id number] Date:1614-69-44Ovik Name:Surinder Campos JOHNB: [id number] [place] [address] [facility] 06/17/2024 Primary Insurance:MEDICARE A AND BPolicy Number: [id number] Date:5999-20-31Xbxk Name:Deedee Campos JOHNB: [id number] [place] [address] [facility] 06/17/2024 Secondary Insurance:[employer] [place] MEDICARE SUPPLEMENTPolicy Number: [id number] Date:7161-33-56Owtu Name:Surinder Campos CHRISTINA: [id number] [place] [address] [facility] 06/10/2024 YUE VASQUEZ: [id number] [place], [place] [address]Pzf: (HP) Primary Insurance:MEDICARE PART A & BPolicy Number: [id number] Date:2019-10-25 YUE PORRASVAZQUEZBrianTREVONLUCIEB: [id number], [place] [address]Xkm: (HP) (WP) [facility] 06/10/2024 Secondary Insurance:[facility]UAL [facility] SUPPLEMENT PLANPolicy Number: [id number] Date:2021-02-23 YUE PORRASMARISSAB: [id number] [address]Uxo: (HP) (WP) [facility] 06/09/2024 Primary Insurance:MEDICARE A AND BPolicy Number: [id number] Date:0406-69-21Lkbu Name:Deedee Campos JOHNB: [id number] [place] [address] [facility] 06/09/2024 Secondary Insurance:[employer] [place] MEDICARE SUPPLEMENTPolicy Number: [id number] Date:3915-31-93Keaw Name:Surinder Campos JOHNB: [id number] [place] [address] [facility] 06/03/2024 Primary Insurance:MEDICARE A AND BPolicy Number: [id number] Date:9025-84-17Mnig Name:Deedee Campos JOHNB: [id number] [place] [address] [facility] 06/03/2024 Secondary Insurance:[employer] [place] MEDICARE SUPPLEMENTPolicy Number: [id number] Date:0431-69-03Wzdt Name:Surinder Campos CHRISTINA: [id number] [place] [address] [facility] 06/03/2024 Primary Insurance:MEDICARE A AND BPolicy Number: [id number] Date:8703-29-00Evny Name:Deedee CAPUTOB: [id number] [facility] [place] [address] [facility] 06/03/2024 Secondary Insurance:[employer] [place] MEDICARE SUPPLEMENTPolicy Number: [id number] Date:9698-35-63Avew Name:Surinder Campos ENTOLUCIEB: [id number] [place] [address] [facility] 06/02/2024 Primary Insurance:MEDICARE A AND BPolicy Number: [id number] Date:5347-67-11Qhkb Name:Deedee Campos JOHNB: [id number] [place] [address] [facility] 06/02/2024 Secondary Insurance:[employer] [place] MEDICARE SUPPLEMENTPolicy Number: [id number] Date:3331-15-20Zouf Name:Surinder Campos CHRISTINA: [id number] [place] [address] [facility] 06/01/2024 Primary Insurance:MEDICARE A AND BPolicy Number: [id number] Date:3190-87-69Qxne Name:Deedee Campos JOHNB: [id number] [place] [address] [facility] 06/01/2024 Secondary Insurance:[employer] [place] MEDICARE SUPPLEMENTPolicy Number: [id number] Date:5028-03-42Fkmh Name:Surinder Campos NETOLUCIEB: [id number] [facility] [place] [address] [facility] 06/01/2024 Primary Insurance:MEDICARE A AND BPolicy Number: [id number] Date:6843-14-35Hzqf Name:Deedee VASQUEZ: [id number] [facility] [place] [address] [facility] 06/01/2024 Secondary Insurance:[employer] [place] MEDICARE SUPPLEMENTPolicy Number: [id number] Date:9246-32-79Dejo Name:Surinder VASQUEZ: [id number] [place] [address] [facility]
--- OUTSIDE RECORDS SUMMARY | 2025-05-24 08:00 | XMS_ITS | Encounter Summary ---
Author Organization [facility] Address [address] [place] [address] Care Team Providers Care Data Center Solutions Architect Name Role Phone Janet Dillard DO Unavailable Unavailabl Sunny Stone MD Primary Care Provider [phone] Mitch Garcia MD Unavailable [phone] Deepika Garcia Unavailable Unavailable Nona Lomax RD Unavailable Nia Snider RN Unavailable Unavailable Source Comments In the event this information is protected by the Federal Confidentiality of Alcohol and Drug AbusePatient Records regulations: The Federal rules restrict any use of the information to criminally investigate or prosecute any alcohol or drug abuse patient.[facility] Encounter Details Date Type Department Care Team (Late st Contact Info) Description 05/24/2025 8:00 AM EDT PAT Pre Anesthesia [address] [place] [address] Pulmonary embolism, other, unspecified chronicity, unspecified whether acute cor pulmonale present (HCC) (Primary Dx); Primary hypertension; Palpitations; Mixed hyperlipidemia; Disorder of mitral valve; Chronic obstructive pulmonary disease, unspecified COPD type (HCC); GLOVER (dyspnea on exertion); Gastroesophageal reflux disease, unspecified whether esophagitis present; Stage 3a chronic kidney disease (HCC); Invasive lobular carcinoma of breast in female (HCC); Obesity, Class III, BMI >= 40 Social History Tobacco Use Types Packs/Day Years [...] in a retirement (including now)? No 07/30/2023 AUDIT-C Answer Date Recorded Q1: How often do you have a drink containing alcohol? Never 05/24/2025 Q2: How many drinks containi ng alcohol do you have on a typical day when you are drinking? Patient does not drink Q3: How often do you have si x or more drinks on one occasion? Never 05/24/2025 Area Deprivation Index Answer Date Joaquin rded National Score (1-100), lower number is lower ri sk 92 01/29/2023 State Score (1-10), lower number is lower risk 9 01/29/2023 Data from: https://www.neighborhoodatlas.medicine.[facility]/. Last address used for calculation Armando Mayen 01/29/2023 Comments No Sex and Gender Information Value Date Recorded Sex Assigned at Female 08/14/2024 10:40 AM EST Legal Sex Female 8:08 AM EST Gender Identity Not on file Sexual Orientation Straight 08/14/2024 10 :40 AM EST documented as of this encounter Last Filed Vital Signs Vital Sign Reading Time Taken Comments Blood Pressure - - Pulse 96 05/24/2025 7:56 AM EDT Temperature - - Respiratory Rate 16 05/24/2025 7:56 AM EDT Oxygen Saturation 95% 05/24/2025 7:56 AM EDT Inhaled Oxygen Concentration - - Weight 116.6 kg (257 lb) 05/24/2025 7:56 AM EDT Height 157.5 cm (5' 2 ) 05/24/2025 7:56 AM EDT Body Mass Index 47.01 05/24/2025 7:56 AM EDT documented in this encounter Functional Status * AUDIT-C Score Answer Date of Assessment Author 0 05/24/2025 8:01 AM EDT Me ginny Schwartz APRN.SALES CONSULTANT RESIDENTIAL MANAGER * Question Answer Date of Assessment Author Q1: How often do you have a drink containing alcohol? Never 05/24/2025 8:01 AM EDT Kristin Schwartz REFERRAL NURSE.SALES CONSULTANT RESIDENTIAL MANAGER Q2: How many drinks containing alcohol do you have on a typical day when you are drinking? Patient does not drink 05/24/2025 8:01 AM EDT Kristin Schwartz REFERRAL NURSE.SALES CONSULTANT RESIDENTIAL MANAGER Q3: How often do you have six or more drinks on one occasion? Never 05/24/2025 8:01 AM EDT Kristin Schwartz APRN.SALES CONSULTANT RESIDENTIAL MANAGER * Are you deaf or do you [...] this encounter Patient Instructions * Patient Instructions* Kristin Schwartz, LENA.SALES CONSULTANT RESIDENTIAL MANAGER - 05/24/2025 7:06 AM EDT Images from the original note were not included. [facility] PATIENT PREOPERATIVE INSTRUCTIONS Debbie Gunn MD has scheduled you for your procedure at this surgery center: [facility]: [phone] --[address] [place] [address]. Please enter through the entrance closest to [facility]. Please read below carefully for your personalized instructions. Arrival Time for Surgery: - The Surgery Center or hospital where you are having surgery will call the afternoon before surgery (or Saturday for Saturday surgery) with a scheduled arrival time. - If you have not heard by 4 pm, please contact the surgery center above. Dietary Restrictions: - No solid food after midnight. - You may have 12 ounces of clear liquids (water, clear juices such as apple juice or gatorade, carbonated beverages, clear tea, black coffee, jello) until 2 hours before scheduled arrival at facility. - Do not drink any alcohol after midnight the night before your surgery. - no milk/creamer or other additives like honey - no pulp juices Medications: Hold any vitamins the day of surgery, please stop herbal supplements 7 days before surgery Pre-Surgery Med Instructions Medication Instructions letrozole (FEMARA) 2.5 mg tablet Do not take the day of surgery ribociclib (KISQALI) 400 mg/day (200 mg x 2) tab If you normally take this medication in the morning, take the morning of surgery. cholecalciferol (VITAMIN D-3) 5,000 unit tab Do not take the day of surgery spironolactone (ALDACTONE) 25 mg tablet Do not take the day of surgery atorvastatin (LIPITOR) 20 mg tablet If you normally take this medication in the morning, take the morning of surgery. losartan (COZAAR) 50 mg tablet If you normally take this medication in the morning, take the morning of surgery. esomeprazole magnesium (NEXIUM ORAL) If you normally take this medication in the morning, take the morning of surgery. furosemide (LASIX) 20 mg tablet Do not take the day of surgery MULTIVITAMIN ORAL Do not take the day of surgery potassium chloride (K-TAB) 10 mEq tablet Do not take the day of surgery METOPROLOL 100 MG TAB If you normally take this medication in the morning, take the morning of surgery. Unless instructed differently below, stay on all of your medications until your surgery. If you start any new medications after today's visit, please contact your surgeon. Blood Thinning Medications: - Stop NSAIDS (Ibuprofen, Advil, Aleve, Motrin, Celebrex, Mobic, etc.) 7 days before surgery, as directed by your surgeon. - Stop Aspirin 7 days before surgery, as directed by your surgeon. - Stop herbal supplements 7 days before surgery. - You may take Tylenol (Acetaminophen) or any of your pain medications that do not contain aspirin or NSAIDS as needed. Important Reminders: - If you use CPAP/BIPAP, bring the machine with you to the surgery center. - If you are prescribed inhalers for breathing, continue using them. -Please be sure to brush your teeth and you can use mouth wash or rinse your mouth if dry. - Candy, mints, gum, or tobacco products are NOT permitted the morning of surgery. - Hearing aids, dentures and glasses may be worn the morning of surgery. - If you have dentures or partials, please have a case to place them in or leave at home day of surgery. - NO jewelry, body piercings, [...] Procedures: - YOU MUST HAVE A RESPONSIBLE CHEMICAL TREATMENT PLANT TECHNICIAN TAKE YOU HOME. A VIDEO SPECIALIST OR PATIENT ACCESS COORDINATOR CANNOT BE MADE A RESPONSIBLE CHEMICAL TREATMENT PLANT TECHNICIAN. - We recommend that a responsible person stays with you overnight to take care of you. - You cannot stay in a hotel alone after outpatient surgery. You will not be permitted to have yoursurgery, if you do not have someone to take care of you. Please be aware that emergency situations arise, which may delay or change your surgical time. If this happens, we will notify you as soon as possible and regret any inconvenience. If you already have an Advance Directive, please fax a copy to [phone] or email to for it to be added to your chart. If you do not have an Advance Directive, you can find the appropriate form and more information at [email or web address]. We recommend that youcomplete the Advance Directive form found on the website and bring it with you the day of your surgery. It can be witnessed and scanned into your chart that day. Kristin CEBALLOS, REFERRAL NURSE-SALES CONSULTANT RESIDENTIAL MANAGER documented in this encounter H&P Notes * Kristin Schwartz APRN.CNP - 05/24/2025 8:00 AM EDT Images from the original note were not included. [facility] Pre[facility]est[facility] HISTORY AND PHYSICAL EXAMINATION SERVICE DATE: 05/24/2025 SERVICE TIME: 8:21 AM PRIMARY CARE PHYSICIAN: Sunny Jenkins MD Assessment Patient has the following medical conditions which may affect aaron-operative course: Pulmonary embolism (HCC) Assessment: PE 11/05/2023 [...] 08/2023 ECHO COPD (chronic obstructive pulmonary disease) ([facility]) Assessment: - Follows with Pulmonology - Office Visit with Dayanna Alatorre APRN.SALES CONSULTANT RESIDENTIAL MANAGER (05/17/2025) - Office Visit with Jules Mcintosh MD (04/16/2025) - Compliant on inhalers. - Denies any new or worsening respiratory symptoms. Denies recent exacerbations or hospitalizations. - Denies use of oxygen. - pulse ox 95% on RA GLOVER (dyspnea on exertion) Assessment: at baseline GERD (gastroesophageal reflux disease) Assessment: - Controlled on medication. - Advised avoidance of triggers. - Following with PCP. Stage 3a chronic kidney disease (HCC) Assessment: Follows with nephrology Latest Ref Rng & Units 03/30/2025 12/24/2024 09/11/2024 BMP Glucose 74 [...] 10.2 mg/dL 9.5 9.3 9.3 EGFR >=60 mL/min/1.73m 38 46 31 Invasive lobular carcinoma of breast in female (HCC) Assessment: - History of Left mastectomy with chemo and radiation - Radiation L chest wall and regional nodes 03/03/2024-03/24/2024 - Following with oncology Obesity, Class III, BMI >= 40 Assessment: Body mass index is 47.01 kg/m??. ANESTHESIA FINDINGS: Intubation History: No history of [...] encounter. This is a virtual visit using [employer] video visit. It required patient-provider interaction for themedical decision making as documented below. REASON FOR VISIT: Yue Solomon is a 69 year old female who is scheduled for EGD DIAGNOSTIC at the request of @PACCSURG@ for consultation. My final recommendation will be communicated backto the requesting physician by way of shared [...] pre anesthesia consultation for procedure on at [facility]. Patient presenting with hx of GERD. Denies abdominal pain. Denies hematemesis, difficulty swallowing or breathing, nausea or vomiting. Has elected for procedure above. This is a virtual visit. The visit was conducted using [employer] video visit. It required patient-provider interaction for the medical decision making as documented below. I have communicated my name and active licensure. The patient's identity and physical location wereverified at the time of this visit. Either the patient or their legal installation service representative has been informed of the risks [...] chest pain, CHF, congenital heart defect, recent UT, PTCA, PVD, open heart surgery and valve surgery. GI: Positive for: GERD Negative for: abdominal pain, GI bleed <30 days, hepatitis, liver disease, nausea, vomiting and ETOH >2 drinks/day. : CKD 3 Negative for: on dialysis, dysuria, frequent urination, hematuria and urinary tract infection. 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 Pertinent negatives noted - notdistressed. Skin: normal color, no rash or lesions. [...] or crackles. Equal chest rise with normal respiratoryeffort. Abdomen: soft. Pertinent negatives noted - not [...] (116.6kg) SpO2 95% LMP 08/26/2006 BMI 46.99 kg/(m^2). Diagnostic tests reviewed for today's visit: Lab [...] 392 QTC Calculation (Bazett) 423 Calculated R Ingalls 169 Calculated T Ingalls 143 Impression SUSPECT ARM LEAD REVERSAL, PLEASE REPEAT SINUS RHYTHM WITH 1ST DEGREE AV BLOCK LATERAL MYOCARDIAL INFARCTION , AGE UNDETERMINED ABNORMAL ECG No results found for this or any previous visit (from the past [id number] hours). Instructions Given to Patient: Instructions located in the after visit summary. Patient given verbal and written preop instructions and voices comprehension and compliance. SIGNATURE: Kristin Schwartz APRN.CNP PATIENT NAME: Yue Solomon DATE: May 24, 2025 TIME: 7:06 AM [...] EDT Specialty Pharmacy [facility] [address] [facility] [id number] [place] [address] Pharmacist, [facility] [address] [place] [address] [address] [place] [id number] Refill - Kisqali [28DS] 06/08/2025 9:00 AM EDT Office Visit Rheumatology [address] [facility] [place] [id number] Immanuel Oliveros APRN.SALES CONSULTANT RESIDENTIAL MANAGER [address] [facility] [address] RA 06/10/2025 1:30 PM EDT Appointment Procedures [address] [place] [address] Debbie Gunn MD [address] [place] [address] [address] [place], [place] [id number] 07/07/2025 9:00 AM EST Infusion Center Hematology/Oncolo gy [address] [facility] [place] [address] lab 07/14/2025 9:30 AM EST [facility] Hematology [address] [place] [address] Mitch Garcia MD [address] [place] [address] Schedule labs prior to Virtual visit with DR Garcia 07/15/2025 9:00 AM EST Infusion Center Hematology/Oncolo gy [address] [facility] [place] [address] Prolia injection day after RADHA virtual visit per staff message 08/23/2025 10:00 AM EST Office Visit Kidney Medicine [address] [place] [address] Shante Carroll, REFERRAL NURSE.SALES CONSULTANT RESIDENTIAL MANAGER [address] [place] [address] 6 month follow up documented as of this encounter Visit Diagnoses Diagnosis Pulmonary embolism, other, unspecified chronicity, unspecified whether acute cor pulmonale present (HCC)- Primary Primary hypertension Unspecified essential hypertension Palpitations Mixed hyperlipidemia Disorder of mitral valve Mitral valve disorders Chronic obstructive pulmonary disease, unspecified COPD type (HCC) GLOVER (dyspnea on exertion) Other dyspnea and respiratory abnormality Gastroesophageal reflux disease, unspecified whether esophagitis present Stage 3a chronic kidney disease (HCC) Invasive lobular carcinoma of breast in female (HCC) Obesity, Class III, BMI >= 40 Morbid obesity * Assessment & Plan Note - Kristin Schwartz APRN.CNP - 05/24/2025 8:06 AM EDT Associated Problem(s): Obesity, Class III, BMI >= 40 Assessment: Body mass index is 47.01 kg/m??. * Assessment & Plan Note - Kristin Schwartz APRN.CNP - 05/24/2025 8:06 AM EDT Associated Problem(s): Invasive lobular carcinoma of breast in female (HCC) Assessment: - History of Left mastectomy with chemo and radiation - Radiation L chest wall and regional nodes 03/03/2024-03/24/2024 - Following with oncology * Assessment & Plan Note - Kristin Schwartz APRN.CNP - 05/24/2025 8:05 AM EDT Associated Problem(s): Stage 3a chronic kidney disease (HCC) Images from the original note were not included. Assessment: Follows with nephrology Latest Ref Rng & Units 03/30/2025 12/24/2024 09/11/2024 BMP Glucose 74 [...] 10.2 mg/dL 9.5 9.3 9.3 EGFR >=60 mL/min/1.73m 38 46 31 * Assessment & Plan Note - Kristin Schwartz APRN.CNP - 05/24/2025 8:05 AM EDT Associated Problem(s): GERD (gastroesophageal reflux disease) Assessment: - Controlled on medication. - Advised avoidance of triggers. - Following with PCP. * Assessment & Plan Note - Kristin Schwartz APRN.CNP - 05/24/2025 8:05 AM EDT Associated Problem(s): GLOVER (dyspnea on exertion) Assessment: at baseline * Assessment & Plan Note - Kristin Schwartz APRN.CNP - 05/24/2025 8:04 AM EDT Associated Problem(s): COPD (chronic obstructive pulmonary disease) (HCC) Assessment: - Follows with Pulmonology - Office Visit with Dayanna Alatorre APRN.CNP (05/17/2025) - Office Visit with Jules Mcintosh MD (04/16/2025) - Compliant on inhalers. - Denies any new or worsening respiratory symptoms. Denies recent exacerbations or hospitalizations. - Denies use of oxygen. - pulse ox 95% on RA * Assessment & Plan Note - Kristin Schwartz APRN.CNP - 05/24/2025 8:04 AM EDT Associated Problem(s): Disorder of mitral valve Assessment: trace mitral regurgitation per 08/2023 ECHO * Assessment & Plan Note - Kristin Schwartz APRN.CNP - 05/24/2025 8:03 AM EDT Associated Problem(s): Mixed hyperlipidemia Assessment: Compliant on statin therapy, Atorvastatin (Lipitor). Encouraged lifestyle modifications. * Assessment & Plan Note - Kristin Schwartz APRN.CNP - 05/24/2025 8:03 AM EDT Associated Problem(s): Palpitations Assessment: - Stable on Metoprolol - Evaluated for possible atrial fibrillation on metoprolol - Follows with Dr. John Dc ( Cardiology) * Assessment & Plan Note - Kristin Schwartz APRN.CNP - 05/24/2025 8:03 AM EDT Associated Problem(s): Primary hypertension Assessment: Stable, compliant on rx . Follows with PCP. Last 3 Encounter BP Readings: Date: BP: 05/17/2025 152/55 04/16/2025 149/63 04/13/2025 151/53 * Assessment & Plan Note - rKistin Schwartz APRN.CNP - 05/24/2025 8:02 AM EDT Associated Problem(s): Pulmonary embolism (HCC) Assessment: PE 11/05/2023 was on Eliquis for 3 months documented in this encounter Care Teams Data Center Solutions Architect Relationship Specialty Start Date End Date Sunny Jenkins MD PCP - General Internal Medicine 08/22/23 Janet Dillard DO Referring Family Medicine 07/14/21 Mitch Garcia MD [address] [place] [address] [place] [address] Physician Hematology/Oncology 09/23/23 Deepika Garcia LSW Vegetable Handler 09/24/[address] [place] [address] [place] [address] Registered Dietitian Nutrition 10/22/23 Nia Snider, RN Specialty Cone Trucker Hematology/Oncology 04/22/24 documented as of this encounter
[2025-05-27] VITALS (40 sets, daily range): BP systolic 144–191; BP diastolic 84–128; PULSE 98–141; TEMP 36.7; O2SAT 77–100; BMI 46.6
--- OUTSIDE RECORDS SUMMARY | 2025-05-27 08:40 | XMS_ITS ---
Author Organization [facility] Address [address] [place], [place] [id number] Care Team Providers Care Manager Relationship Name Role Phone Janet Dillard DO Unavailable Unavailabl Sunny Stone MD Primary Care Provider [phone] Mitch Garcia MD Unavailable [phone] Deepika Garcia CRYSTALLIZER OPERATOR Unavailable Unavailable Nona Lomax RD Unavailable [phone] Nia Snider RN Unavailable Unavailable Oncology - Breast Status:Enrolled (Active) Start date:08/28/2024 Enrollment date:08/28/2024 Linked medications:ribociclib succinate (Active) Continued Care and Services Coordination
--- OUTSIDE RECORDS SUMMARY | 2025-05-27 08:40 | XMS_ITS | Encounter Summary ---
Author Organization [facility] Address [address] [place] [address] Phone Care Team Providers Care Hydro Plant Operator Name Role Phone Unavailable Primary Care Provider Unavailabl e Encounter Details Date Type Department Care Team (Late st Contact Info) Description 03/16/2022 Orders Only [facility] [address] [place] [address] Conversion, Onbase Social History Tobacco Use Types [...]
--- OUTSIDE RECORDS SUMMARY | 2025-05-27 08:40 | XMS_ITS | Clinical Summary ---
Author Organization [facility] Address [address] [place] [address] Phone Care Team Providers Care Health And Physical Education Teacher Name Role Phone Unavailable Primary Care Provider [...] COVID-19 Vaccine (1 - 2023-2 5 season) 2025 Influenza Vaccine (#1) 2025 RSV High Risk: [...]
--- OUTSIDE RECORDS SUMMARY | 2025-05-27 08:40 | XMS_ITS | Encounter Summary ---
Author Organization [facility] Address [address] [place] [address] Care Team Providers Care Admissions Nurse Name Role Phone Janet Dillard DO Unavailable Unavailabl Sunny Stone MD Primary Care Provider [phone] Yvonne Baumann RN Unavailable [phone] Mitch Garcia MD Unavailable [phone] Hilda TempletonC Unavailable [phone] Deepika Garcia Unavailable Unavailable Nona Lomax RD Unavailable [phone] Nia Snider RN Unavailable Unavailable Source Comments In the event this information is protected by the Federal Confidentiality of Alcohol and Drug AbusePatient Records regulations: The Federal rules restrict any use of the information to criminally investigate or prosecute any alcohol or drug abuse patient.[facility] Encounter Details Date Type Department [...] place to sleep or slept in a prison (including now)? No 07/30/2023 Area Deprivation Index [...] AM EDT Specialty Pharmacy [facility] [address] [place], [place] [address] [place] [address] Pharmacist, [facility] [address] [place] [address] [place] [address] Refill - Kisqali [28DS] C10/20 06/08/2025 9:00 AM EDT Office Visit Rheumatology [address] [facility] [place] [address] Immanuel Oliveros APRN.EXPERIMENTAL WORKER [address] [facility] [place] [id number] RA 06/10/2025 1:30 PM EDT Appointment Procedures [address] [facility] [place] [address] Debbie Gunn MD [address] [place] [address] [place], [place] [id number] 07/07/2025 9:00 AM EST Infusion Center Hematology/Oncolo gy [address] [facility] [place] [address] lab 07/14/2025 9:30 AM EST [facility] Hematology [address] [place] [address] Mitch Garcia MD [address] [place] [address] Schedule labs prior to Virtual visit with DR Garcia 07/15/2025 9:00 AM EST [facility] Hematology/Oncolo gy [address] [facility] [place] [address] Prolia injection day after RADHA virtual visit per staff message 08/23/2025 10:00 AM EST Office Visit Kidney Medicine [address] [place] [address] Shante Carroll APRN.EXPERIMENTAL WORKER [address] [facility] [place] [address] 6 month follow up documented as of this encounter Visit Diagnoses Not on filedocumented in this encounter Care Teams Admissions Nurse Relationship Specialty Start Date End Date Sunny Jenkins MD PCP - General Internal Medicine 08/22/23 Janet Dillard DO Referring Family Medicine 07/14/21 Yvonne Baumann, MALORIE [address] [facility] [place] [address] Specialty Emergency Department Director Hematology/Oncology 09/23/23 04/21/24 Mitch Garcia MD [address] [place] [address] Physician Hematology/Oncology 09/23/23 Hilda Templeton, PA-C [address] [place] [address] [place] [address] Physician Aviation Mechanic Hematology/Oncology 09/23/23 Deepika Garcia LSW Assistant Sales Manager 09/24/[address] [place] [address] [place] [address] Registered Dietitian Nutrition 10/22/23 Nia Snider, MALORIE Specialty Emergency Department Director Hematology/Oncology 04/22/24 documented as of this encounter
--- OUTSIDE RECORDS SUMMARY | 2025-05-27 08:40 | XMS_ITS | Encounter Summary ---
Author Organization [facility] Address [address] [place] [address] Care Team Providers Care Teletype Clerk Name Role Phone Janet Dillard DO Unavailable Unavailabl Sunny Stone MD Primary Care Provider [phone] Mitch Garcia MD Unavailable [phone] Deepika Garcia STORE PLANNER Unavailable Unavailable Nona Lomax RD Unavailable [phone] Nia Snider RN Unavailable Unavailable Source Comments In the event this information is protected by the Federal Confidentiality of Alcohol and Drug AbusePatient Records regulations: The Federal rules restrict any use of the information to criminally investigate or prosecute any alcohol or drug abuse patient.[facility] Encounter Details Date Type Department Care Team (Late st Contact Info) Description 09/08/2024 Get Medical Advice Hematology [address] [facility] [place] [address] Mitch Garcia MD [address] [place] [address] Called to jury duty Social History [...] place to sleep or slept in a [place] health care facility (including now)? No 07/30/2023 Area Deprivation Index Answer Date Joaquin rded National Score (1-100), lower number is lower ri sk 92 01/29/2023 State Score (1-10), lower number is lower risk 9 01/29/2023 Data from: https://www.neighborhoodatlas.medicine.[facility].edu/. Last address used for calculation Armando [...] AM EDT Specialty Pharmacy [facility] [address] [place], [place] 028304-b-100 [place] [address] Pharmacist, [facility]ty[facility] [address] [place] [address] [place] [address] Refill - Kisqali [28DS] C10/20 06/08/2025 9:00 AM EDT Office Visit Rheumatology 5700 [facility] [place] [id number] Immanuel Oliveros APRN.CONSTRUCTION CONTROLLER 5700 [facility] [place]INE [place] [id number] RA 06/10/2025 1:30 PM EDT Appointment Procedures [address] [place] [id number] Debbie Gunn MD [address] [place] [address] [place] [address] 07/07/2025 9:00 AM EST Infusion Center Hematology/Oncolo gy [address] [facility] [place] [address] lab 07/14/2025 9:30 AM EST [facility] Hematology [address] [place] [address] Mitch Garcia MD [address] [place] [address] Schedule labs prior to Virtual visit with DR Garcia 07/15/2025 9:[address] [facility] Hematology/Oncolo gy [address] [place] [address] Prolia injection day after RADHA virtual visit per staff message 08/23/2025 10:00 AM EST Office Visit Kidney Medicine [address] [place] [address] Shante Carroll, RADIATION OFFICER.CONSTRUCTION CONTROLLER [address] [facility] [place] [address] 6 month follow up documented as of this encounter Visit Diagnoses Not on filedocumented in this encounter Care Teams Teletype Clerk Relationship Specialty Start Date End Date Sunny Jenkins MD PCP - General Internal Medicine 08/22/23 Janet Dillard DO Referring Family Medicine 07/14/21 Mitch Garcia MD [address] [place] [address] Physician Hematology/Oncology 09/23/23 Deepika Garcia LSW Marketing Editor 09/24/[address] [place] [address] [place] [address] Registered Dietitian Nutrition 10/22/23 Nia Snider, MALORIE Specialty Director Meetings Hematology/Oncology 04/22/24 documented as of this encounter
--- OUTSIDE RECORDS SUMMARY | 2025-05-27 08:40 | XMS_ITS | Encounter Summary ---
Author Organization [facility] Address [address] [place] [address] Care Team Providers Care Bacon De Rinder Name Role Phone Janet Dillard DO Unavailable Unavailabl Sunny Stone MD Primary Care Provider [phone] Yvonne Baumann RN Unavailable [phone] Mitch Garcia MD Unavailable [phone] Hilda TempletonC Unavailable [phone] Deepika Garcia Unavailable Unavailable Nona Lomax RD Unavailable [phone] Nia Snider RN Unavailable Unavailable Source Comments [...] AM EDT Specialty Pharmacy [facility] [address] [place], [place] 250244-b-100 [place] [address] Pharmacist, [facility] [address] [place] [address] [place] [address] Refill - Kisqali [28DS] C10/20 06/08/2025 9:00 AM EDT Office Visit Rheumatology 5700 [facility] [place] [address] Immanuel Oliveros APRN.IMCU SPECIALIST 5700 [facility] [place]INE [place] [id number] RA 06/10/2025 1:30 PM EDT Appointment Procedures [address] [facility] [place] [address] Debbie Gunn MD [address] [place] [address] [address] [place], [place] [id number] 07/07/2025 9:00 AM EST Infusion Center Hematology/Oncolo gy [address] [facility] [place] [address] lab 07/14/2025 9:30 AM EST [facility] Hematology [address] [place] [address] Mitch Garcia MD [address] [place] [address] Schedule labs prior to Virtual visit with DR Garcia 07/15/2025 9:00 AM EST [facility] Hematology/Oncolo gy [address] [place] [address] Prolia injection day after RADHA virtual visit per staff message 08/23/2025 10:00 AM EST Office Visit Kidney Medicine [address] [place] [address] Shante Carroll APRN.IMCU SPECIALIST [address] [facility] [place] [address] 6 month follow up documented as of this encounter Visit Diagnoses Not on filedocumented in this encounter Care Teams Bacon De Rinder Relationship Specialty Start Date End Date Sunny Jenkins MD PCP - General Internal Medicine 08/22/23 Janet Dillard DO Referring Family Medicine 07/14/21 Yvonne Baumann, MALORIE [address] [place] [address] Specialty Transcription Manager Hematology/Oncology 09/23/23 04/21/24 Mitch Garcia MD [address] [place] [address] Physician Hematology/Oncology 09/23/23 Hilda Templeton, PA-C [address] [place] [address] [place] [address] Physician Metal Furniture Repairer Hematology/Oncology 09/23/23 Deepika Garcia LSW [place]fgrass Management Professor 09/24/[address] [place] [address] [place] [address] Registered Dietitian Nutrition 10/22/23 Nia Snider, MALORIE Specialty Transcription Manager Hematology/Oncology 04/22/24 documented as of this encounter
--- OUTSIDE RECORDS SUMMARY | 2025-05-27 08:40 | XMS_ITS | Encounter Summary ---
Author Organization [facility] Address [address] [place] [address] Care Team Providers Care Pulp House Supervisor Name Role Phone Janet Dillard DO Unavailable Unavailabl Sunny Stone MD Primary Care Provider [phone] Mitch Garcia MD Unavailable [phone] Deepika Garcia Unavailable Unavailable Nona Lomax RD Unavailable [phone] Nia Snider RN Unavailable Unavailable Source Comments In the event this information is protected by the Federal Confidentiality of Alcohol and Drug AbusePatient Records regulations: The Federal rules restrict any use of the information to criminally investigate or prosecute any alcohol or drug abuse patient.[facility] Encounter Details Date Type Department Care Team (Late st Contact Info) Description 01/06/2025 Patient [facility] PHARMAC[facility] HB-3 [address] [place] [address] Jackelyn Grover RPh At your next appointment, choose [facility]. Social History Tobacco Use Types [...] place to sleep or slept in a snf (including now)? No 07/30/2023 Area Deprivation Index Answer Date Joaquin rded National Score (1-100), lower number is lower ri sk 92 01/29/2023 State Score (1-10), lower number is lower risk 9 01/29/2023 Data from: https://www.neighborhoodatlas.medicine.[facility].edu/. Last address used for calculation Armando [...] AM EDT Specialty Pharmacy [facility] [address] [place] [address] AC4-b-100 [place] [address] Pharmacist, [facility] [address] [place] [address] [place] [address] Refill - Kisqali [28DS] /20 06/08/2025 9:00 AM EDT Office Visit Rheumatology 5700 [facility] [place] [address] Immanuel Oliveros APRN.CHUTE BOSS 5700 [facility] [place] [address] RA 06/10/2025 1:30 PM EDT Appointment Procedures [address] [place] [address] Debbie Gunn MD [address] [facility] [address] [place], [place] [id number] 07/07/2025 9:00 AM [facility] Infusion Center Hematology/Oncolo gy [address] [facility] [place] [address] lab 07/14/2025 9:[address] [facility] Hematology [address] [place] [address] Mitch Garcia MD [address] [place] [address] Schedule labs prior to Virtual visit with DR Garcia 07/15/2025 9:00 AM EST [facility] Center Hematology/Oncolo gy [address] [place] [address] Prolia injection day after RADHA virtual visit per staff message 08/23/2025 10:00 AM EST Office Visit Kidney Medicine [address] [place] [address] Shante Carroll APRN.CHUTE BOSS [address] [facility] [address] 6 month follow up documented as of this encounter Visit Diagnoses Not on filedocumented in this encounter Care Teams Pulp House Supervisor Relationship Specialty Start Date End Date Sunny Jenkins MD PCP - General Internal Medicine 08/22/23 Janet Dillard DO Referring Family Medicine 07/14/21 Mitch Garcia MD [address] [place] [address] Physician Hematology/Oncology 09/23/23 Deepika Garcia LSW Hospital Cleaning Specialist 09/24/[address] [place] [address] [place] [address] Registered Dietitian Nutrition 10/22/23 Nia Snider, MALORIE Specialty Stroke Program Coordinator Hematology/Oncology 04/22/24 documented as of this encounter
--- OUTSIDE RECORDS SUMMARY | 2025-05-27 08:40 | XMS_ITS | Encounter Summary ---
Author Organization [facility] Address [address] [place] [address] Care Team Providers Care Zipper Joiner Name Role Phone Chris Amanda Primary Care Provider [phone] Janet Dillard DO Unavailable UnavailSunny Coates MD Primary Care Provider [phone] Yvonne Baumann RN Unavailable [phone] Mitch Garcia MD Unavailable [phone] Hilda TempletonC Unavailable [phone] Deepika Garcia Unavailable Unavailable Nona Lomax RD Unavailable [phone] Nia Snider RN Unavailable Unavailable Source Comments In the event this information is protected by the Federal Confidentiality of Alcohol and Drug AbusePatient Records regulations: The Federal rules restrict any use of the information to criminally investigate or prosecute any alcohol or drug abuse patient.[facility] Encounter Details Date Type Department Care Team (Late st Contact Info) Description 04/03/2022 Patient Msg Neurology [address] [place] [address] Lopez Salmon DO [address] [place] [address] [place] thyroid Social History Tobacco Use Types [...] to sleep or slept in a senior care (including now)? No 03/14/2022 Area Deprivation Index Answer Date Joaquin rded National Score (1-100), lower number is lower ri sk 84 03/23/2022 State Score (1-10), lower number is lower risk N ot on file 03/23/2022 Data from: https://www.neighborhoodatlas.medicine.[facility].edu/. Last address used for calculation Armando [...] AM EDT Specialty Pharmacy [facility] AC4-b-100 [place] [address] Pharmacist, [facility] [address] [place] [address] Refill - Kisqali [28DS] C10/20 06/08/2025 9:00 AM EDT Office Visit Rheumatology 5700 [facility] [place] [address] Immanuel Oliveros APRN.EP SPECIALIST [address] [facility] [place] [address] RA 06/10/2025 1:30 PM EDT Appointment Procedures [address] [place] [address] Debbie Gunn MD [address] [place] [address] [address] [place], [place] 9428235 07/07/2025 9:00 AM [facility] Infusion Center Hematology/Oncolo gy [address] [facility] [place] [address] lab 07/14/2025 9:30 AM EST [facility] Hematology [address] [place] [address] Mitch Garcia MD [address] [place] [address] Schedule labs prior to Virtual visit with DR Garcia 07/15/2025 9:00 AM [facility] Infusion Center Hematology/Oncolo gy [address] [facility] [place] [address] Prolia injection day after RADHA virtual visit per staff message 08/23/2025 10:00 AM EST Office Visit Kidney Medicine [address] [place] [address] Shante Carroll, CHILLER TECHNICIAN.EP SPECIALIST [address] [facility] [place] [address] 6 month follow up documented as of this encounter Visit Diagnoses Not on filedocumented in this encounter Care Teams Zipper Joiner Relationship Specialty Start Date End Date Chris Amanda PCP - General 01/28/07 08/21/23 Sunny Jenkins MD PCP - General Internal Medicine 08/22/23 Janet Dillard DO Referring Family Medicine 07/14/21 Yvonne Baumann, RN [address] [place] [address] [place] [address] Specialty Back Winder Hematology/Oncology 09/23/23 04/21/24 Mitch Garcia MD [address] [place] [address] [place] [address] Physician Hematology/Oncology 09/23/23 Hilda Templeton, PA-C [address] [place] [address] [place] [address] Physician Surveillance Systems Engineer Hematology/Oncology 09/23/23 Deepika Garcia LSW Brim Stretcher 09/24/[address] [place] [address] [place] [address] Registered Dietitian Nutrition 10/22/23 Nia Snider, RN Specialty Back Winder Hematology/Oncology 04/22/24 documented as of this encounter
--- OUTSIDE RECORDS SUMMARY | 2025-05-27 08:40 | XMS_ITS | Encounter Summary ---
Author Organization [facility] Address [address] [place] [address] Care Team Providers Care Bolt Threader Name Role Phone Janet Dillard DO Unavailable Unavailabl Sunny Stone MD Primary Care Provider [phone] Mitch Garcia MD Unavailable [phone] Deepika Garcia Unavailable Unavailable Nona Lomax RD Unavailable [phone] Nia Snider RN Unavailable Unavailable Source Comments In the event this information is protected by the Federal Confidentiality of Alcohol and Drug AbusePatient Records regulations: The Federal rules restrict any use of the information to criminally investigate or prosecute any alcohol or drug abuse patient.[facility] Encounter Details Date Type Department Care Team (Late st Contact Info) Description 01/06/2025 Patient [facility] PHARMACY HB-3 [address] [place] [address] Jackelyn Grover RPh At your next appointment, choose [facility] Pharm[facility]. Social History Tobacco Use [...] is lower risk 9 01/29/2023 Data from: https://www.neighborhoodatlas.medicine.[facility].edu/. Last address used for calculation [...] AM EDT Specialty Pharmacy [facility] [address] [place] [address] AC4[address]100 [place] [address] Pharmacist, [facility] [address] [place] [address] [place] [address] Refill - Kisqali [28DS] /20 06/08/2025 9:00 AM EDT Office Visit Rheumatology 5700 [facility] [place] [address] Immanuel [place]os APRN.SHOTGUN SHELL LOADING MACHINE OPERATOR 5700 [facility] [place] [address] RA 06/10/2025 1:30 PM EDT Appointment Procedures [address] [place] [address] Debbie Gunn MD [address] [facility] [address] [place], [place] [id number] 07/07/2025 9:00 AM [facility] Infusion Center Hematology/Oncolo gy [address] [facility] [address] lab 07/14/2025 9:30 AM EST [facility] Hematology [address] [place] [address] Mitch Garcia MD [address] [place] [address] Schedule labs prior to Virtual visit with DR Garcia 07/15/2025 9:00 AM EST [facility] Hematology/Oncolo gy [address] [facility] [place] [address] Prolia injection day after RADHA virtual visit per staff message 08/23/2025 10:00 AM EST Office Visit Kidney Medicine [address] [place] [address] Shante Carroll APRN.SHOTGUN SHELL LOADING MACHINE OPERATOR [address] [facility] [place] [address] 6 month follow up documented as of this encounter Visit Diagnoses Not on filedocumented in this encounter Care Teams Bolt Threader Relationship Specialty Start Date End Date Sunny Jenkins MD PCP - General Internal Medicine 08/22/23 Janet Dillard DO Referring Family Medicine 07/14/21 Mitch Garcia MD [address] [place] [address] Physician Hematology/Oncology 09/23/[address] Deepika Garcia LSW Highway Patrol Commander 09/24/[address] [place] [address] [place] [address] Registered Dietitian Nutrition 10/22/23 Nia Snider, MALORIE Specialty Transportation Engineering Technician Hematology/Oncology 04/22/24 documented as of this encounter
--- OUTSIDE RECORDS SUMMARY | 2025-05-27 08:40 | XMS_ITS | Patient Health Record ---
Author Organization [facility] Address [address] [place] [address] Care Team Providers Care Administrative Medical Director Name Role Phone Sunny Jenkins Primary Care Provider Davin Figueroa Unavailable [phone] Tamika Manriquez Unavailable [phone] Reason For Referral No Information Social History Tobacco Use: Social History Observation [...] osteoarthritis of the pelvic region and thigh ([id number]) Osteoarthritis of one hip, left (M16.12) Active confirmed Encounters Encounter Location Date Provider Diagnosis [facility] [address] [place] [address] DR EDEN [address] [place] [id number] 05/10/2025 Tamikamilli Manriquez Left hip pain M25.55 2 and Osteoarthritis [...] pain Left hip OA Plan Of Treatment Pending Test Test Name Order Date PELVIS - AP ONLY [id number] 05/10/2025 Next Appt Details Provider Name:Jesus Mustafa, 07/01/2025 07:30:00 AM, [address] [facility] , [place], [address], Insurance Providers Payer Name Payer Address Payer Phone Subscriber Number Group Number Insured Name Patient Relationship to Insured Coverage Start Date Cover[place] [address] [place] [address] [id number] MINAL YUEN Self - patient is the insured 5 [facility] [address] [facility] [place] [id number] MINAL YUEN Self - patient is the insured 5 Medical (General) History Medical History History ICD Code Blood Clots in Legs/Lungs: Yes Cancer: Yes Cancer Type: Breast Chronic back pain:: Yes CPAP Machine:: No DRUG ALLERGIES: Yes Healthcare worker: No High Blood Pressure: Yes Kidney stones: Yes Latex Allergy: Yes Osteoarthritis: Yes Pulmonary embolism: Yes Respiratory problems:: Yes Rheumatoid arthritis: Yes Have you been in close conta ct with someone who has had MRSA within the last year?: No Have you ever had or presently have MRSA ?: No Have you been seen by a dentist in the ast year?: Yes Do you have any dental probl ems i.e. Broken, loose, or chipped teeth, absess, gum disease?: No
--- NOTE | 2025-05-27 08:41 | ECG_ITS ---
[facility] Test Date: 2025-05-27 Pat Name: MINAL CAPUTO Department: Room: - Gender: Female Business Process Lead: : 1955 Requested By: Joselito Ash Order Number: [id number] Reading MD: BARRINGTON HAYWARD M.D. Measurements Intervals [place] Rate: 118 P: 33 DE: 178 QRS: 33 QRSD: 70 T: 39 QT: 314 QTc: 384 Interpretive Statements 1120 Sinus tachycardia 4068 Nonspecific Twave abnormality 8102 Low QRS voltage in chest leads 9140 abnormal rhythm ECG Compared to ECG 10/19/2024 12:23:03 Low QRS voltage now present Electronically Signed On 05-27-2025 11:48:56 EDT by BARRINGTON HAYWARD M.D.
--- NOTE | 2025-05-27 08:41 | XR_ITS ---
The [address] [address] Patient Name: MINAL CAPUTO MRN: [id number] date: 1955 Sex: F Assigned Patient Location: ED.MAIN Current Patient Location: ED.MAIN Accession/Order Number: [id number] Exam Date: 05/27/2025 09:20 Report Date: 05/27/2025 09:48 At the request of: ZABRINA BENITEZ Procedure: XR chest 1V PORTABLE ERECT CHEST 1909 hours CLINICAL HISTORY: shortness of breath COMPARISON: 10/19/2024 Evaluation is slightly limited by body habitus, technique and positioning. There is a right Aevkex-y-Ygfg catheter. The cardiac silhouette jd enlarged and a hiatal hernia is again seen. There is continued mild increase in interstitial markings. There is some hazy density may be technical however parenchymal change is not excluded, particularly at the left base where the hemidiaphragm is partially obscured. No pneumothorax is noted. There is no sizable pleural effusion within limits of only this single view. The bony structures are osteopenic. There is dextroscoliotic curvature and degenerative changes at the shoulders. Valadez rods are present. XR/XR chest 1V IMPRESSION: HIATAL HERNIA. CARDIOMEGALY WITH CONTINUED INTERSTITIAL CHANGES AND POSSIBLE GROUNDGLASS OPACITY. FAILURE IS IN THE DIFFERENTIAL. SIMILAR FINDINGS WERE SEEN PREVIOUSLY. CLINICAL CORRELATION IS RECOMMENDED. Impression dictated by: Pat Roberts M.D. 05/27/2025 9:48 AM Dictation Location: [place] [address] Electronically authenticated by: [id number] Y Date: 05/27/2025 09:48
--- OUTSIDE RECORDS SUMMARY | 2025-05-27 08:41 | XMS_ITS | Encounter Summary ---
Author Organization [facility] Address [address] [place] [address] Care Team Providers Care Crown Ironer Name Role Phone Chris Amanda Primary Care Provider [phone] Janet Dillard DO Unavailable UnavailSunny Coates MD Primary Care Provider [phone] Yvonne Baumann RN Unavailable [phone] Mitch Garcia MD Unavailable [phone] Hilda Templeton-C Unavailable [phone] Deepika Garcia Unavailable Unavailable Nona Lomax RD Unavailable [phone] Nia Snider RN Unavailable Unavailable Source Comments In the event this information is protected by the Federal Confidentiality of Alcohol and Drug AbusePatient Records regulations: The Federal rules restrict any use of the information to criminally investigate or prosecute any alcohol or drug abuse patient.[facility] Encounter Details Date Type Department Care Team (Late st Contact Info) Description 07/19/2023 Lab Requisition [facility] Laboratory [address] [place] [address] Mendoza Yang MD [address] [place] [address] Person encountering health services to consult on [...] slept in a jail (including now)? No 03/14/2022 Area Deprivation Index Answer Date Joaquin rded National Score (1-100), lower number is lower ri sk 92 01/29/2023 State Score (1-10), lower number is lower risk 9 01/29/2023 Data from: https://www.neighborhoodatlas.medicine.[facility].edu/. Last address used for calculation Armando You [...] Date Author No 03/16/2022 3:33 PM Michell Frerara RN documented in this encounter Plan of Treatment Upcoming Encounters Date Type Department Care Team (Late st Contact Info) Description 06/07/2025 7:30 AM EDT Specialty Pharmacy [facility] [address] [place] [address] Pharmacist, Specialtygroup [address] [place] [address] [place] [address] Refill - Kisqali [28DS] C10/06/08/2025 9:00 AM EDT Office Visit Rheumatology [address] [place] [id number] Immanuel Oliveros APRN.MELTER SUPERVISOR [address] [facility] [address] RA 06/10/2025 1:30 PM EDT Appointment Procedures [address] [place] [address] Debbie Gunn MD [address] [address] [place], [place] [id number] 07/07/2025 9:00 AM EST Infusion Center Hematology/Oncolo gy [address] [place] [address] lab 07/14/2025 9:30 AM EST [facility] Hematology [address] [place] [address] Mitch Garcia MD [address] [place] [address] Schedule labs prior to Virtual visit with DR Garcia 07/15/2025 9:00 AM EST Infusion Center Hematology/Oncolo gy [address] [place], [place] [id number] Prolia injection day after RADHA virtual visit per staff message 08/23/2025 10:00 AM EST Office Visit Kidney Medicine [address] [place] [address] Shante Carroll, CERTIFIED PHARMACIST ASSISTANT.MELTER SUPERVISOR [address] [facility] [place] [address] 6 month follow up documented as of this encounter Procedures Procedure Name Priority Date/Time Associated Diagnosis Comments OUTSIDE SURG PATH SLIDE REVIEW Routine 07/19/2023 4:11 PM EST Person encountering health services to consult on behalf of another person documented in this encounter Results * OUTSIDE SURG PATH SLIDE REVIEW (07/19/2023 4:11 PM EST) Case Report Surgical Pathology Report Case: [id number] Authorizing Provider: Mendoza Yang MD Collected: 07/19/2023 04:11 PM Ordering Location: [facility] Main Received: 07/19/2023 04:10 PM [facility] Pathologist: Arash Perez MD Specimen: SLIDE(S), 9 SLIDES [id number] 07/22/2023 12:22 PM EST [facility] FINAL DIAGNOSIS A. Breast, left, core biopsy ([id number]; 06/19/2023): ---Invasive lobular carcinoma, preliminary [place] grade 1 (of 3), measuring at least 4.5 mm in greatest dimension. ---Please see comment. 07/22/2023 12:22 PM EST [facility] at 1222 EST Diagnosis Comment Immunoperoxidase studies for estrogen receptor (ER), progesterone receptor (NV), and HER2 were performed at an outside institution and provided for review. Immunostain results for the invasive carcinoma cells are as follows: ER: POSITIVE (80%, strong) NV: POSITIVE (5%, moderate) HER2 IHC: NEGATIVE (0) Controls react as expected 07/22/2023 12:22 PM EST [facility] Performing Lab Diagnostic interpretation performed at [facility], [address] [place] [address] CLIA# [id number] Lithoduplicator Operator: Amor Eisenberg M.D. 07/22/2023 12:22 PM EST [facility] Blocks or Slides MICROSCOPE SLIDE / Unknown 07/19/2023 4:11 PM EST 07/19/2023 4:10 PM EST us Mendoza Yang MD SURGICAL PATHOLOGY Final Result [facility] [address] [place] [address] documented in this encounter Visit Diagnoses Diagnosis Person encountering health services to consult on behalf of another person Other person consulting on behalf of another person documented in this encounter Care Teams Crown Ironer Relationship Specialty Start Date End Date Chris Amanda PCP - General 01/28/07 08/21/23 Sunny Jenkins MD PCP - General Internal Medicine 08/22/23 Janet Dillard DO Referring Family Medicine 07/14/21 Yvonne Baumann, RN [address] [place] [address] [place] [address] Specialty Health Service Coordinator Hematology/Oncology 09/23/23 04/21/24 Mitch Garcia MD [address] [place] [address] [place] [address] Physician Hematology/Oncology 09/23/23 Hilda Templeton, PA-C [address] [place] [address] [place] [address] Physician Fruit Ii Farmworker Hematology/Oncology 09/23/23 Deepika Garcia LSW Stucco Plasterer 09/24/[address] [place] [address] [place] [address] Registered Dietitian Nutrition 10/22/23 Nia Snider, MALORIE Specialty Health Service Coordinator Hematology/Oncology 04/22/24 documented as of this encounter
--- OUTSIDE RECORDS SUMMARY | 2025-05-27 08:41 | XMS_ITS | Encounter Summary ---
Author Organization [facility] Address [address] [place] [address] Care Team Providers Care Brimming Machine Operator Name Role Phone Janet Dillard DO Primary Care Provider Janet Dillard DO Unavailable [phone] Unallocated, Noms Provider MD Primary Care Provi gaurang Janet Dillard DO Unavailable [phone] Encounter Details Date Type Department Care Team (Late st Contact Info) Description 03/05/2023 Abstract [facility] Family Medicine [address] [place] [address] Janet Dillard DO [address] [phone] Social History Tobacco Use Types Packs/Day Years [...] on filedocumented in this encounter Care Teams Brimming Machine Operator Relationship Specialty Start Date End Date Janet Dillard DO PCP - General Family Medicine 01/16/23 04/02/23 Janet Dillard DO [address] [facility] 200 [place] [phone] PCP - ACO Reach 01/17/23 10/01/24 Unallocated, Noms Provider, [place] [address] PCP - General 04/03/23 Janet Dillard, 17[address] [facility] 200 [place] [address] PCP - ACO Reach 10/09/24 11/26/24 documented as of this encounter
--- OUTSIDE RECORDS SUMMARY | 2025-05-27 08:41 | XMS_ITS | Encounter Summary ---
Author Organization [facility] Address [address] [place] [address] Care Team Providers Care Management Analyst Name Role Phone Chris Amanda Primary Care Provider [phone] Janet Dillard DO Unavailable UnavailSunny Coates MD Primary Care Provider [phone] Yvonne Baumann RN Unavailable [phone] Mitch Garcia MD Unavailable [phone] Hilda TempletonC Unavailable [phone] Deepika Garcia Unavailable Unavailable Nona Lomax RD Unavailable [phone] Nia Snider RN Unavailable Unavailable Source Comments In the event this information is protected by the Federal Confidentiality of Alcohol and Drug AbusePatient Records regulations: The Federal rules restrict any use of the information to criminally investigate or prosecute any alcohol or drug abuse patient.[facility] Encounter Details Date Type Department Care Team (Late st Contact Info) Description 02/08/2023 GI Preprocedure Call [facility] Surgery [address] [place] [address] TreasureChrisd [address] [place] [address] Social History Tobacco Use Types Packs/Day Years [...] in a care home (including now)? No 03/14/2022 Area Deprivation Index Answer Date Joaquin rded National Score (1-100), lower number is lower ri sk 92 01/29/2023 State Score (1-10), lower number is lower risk 9 01/29/2023 Data from: https://www.neighborhoodatlas.medicine.[facility].edu/. Last address used for calculation [...] AM EDT Specialty Pharmacy [facility] [address] [place] [address] Pharmacist, Specialtygroup [address] [place] [address] [place] [address] Refill - Kisqali [28DS] 06/08/2025 9:00 AM EDT Office Visit Rheumatology [address] [facility] Tammy Cleary [facility] [place] [phone] Immanuel Oliveros APRN.HEARING THERAPY TEACHER [address] [place] [address] RA 06/10/2025 1:30 PM EDT Appointment Procedures [address] [place] [address] Debbie Gunn MD [address] [facility] [place] [address] 07/07/2025 9:00 AM EST Infusion Center Hematology/Oncolo gy [address] [place] [address] lab 07/14/2025 9:30 AM EST [facility] Hematology [address] [place] [address] Mitch Garcia MD [address] [place] [address] Schedule labs prior to Virtual visit with DR Garcia 07/15/2025 9:00 AM EST Infusion Center Hematology/Oncolo gy [address] [place] [address] Prolia injection day after RADHA virtual visit per staff message 08/23/2025 10:00 AM EST Office Visit Kidney Medicine [address] [place] [address] Shante Carroll APRN.HEARING THERAPY TEACHER [address] [facility] [place] [address] 6 month follow up documented as of this encounter Visit Diagnoses Not on filedocumented in this encounter Care Teams Management Analyst Relationship Specialty Start Date End Date Chris Amanda PCP - General 01/28/07 08/21/23 Sunny Jenkins MD PCP - General Internal Medicine 08/22/23 Janet Dillard DO Referring Family Medicine 07/14/21 Yvonne Baumann, RN [address] [place] [address] [place] [address] Specialty Key Sander Hematology/Oncology 09/23/23 04/21/24 Mitch Garcia MD [address] [place] [address] [place] [address] Physician Hematology/Oncology 09/23/23 Hilda Templeton PALeonelC [address] [place] [address] [place] [address] Physician Pararescue Manager Hematology/Oncology 09/23/23 Deepika Garcia LSW Analytical Engineer 09/24/[address] [place] [address] [place] [address] Registered Dietitian Nutrition 10/22/23 Nia Snider, MALORIE Specialty Key Sander Hematology/Oncology 04/22/24 documented as of this encounter
--- OUTSIDE RECORDS SUMMARY | 2025-05-27 08:41 | XMS_ITS | Encounter Summary ---
Author Organization [facility] tem Address [id number] [address] [place] [address] Care Team Providers Care Pneumatic Tool Repairer Name Role Phone Sunny Jenkins MD Primary Care Provider [phone] Encounter Details Date Type Department Care Team (Late st Contact Info) Description 04/30/2023 Telephone [facility] Physicians Family Medicine [address] [place] [address] Will Dean CMA Social History [...] she thinks it was from ED or [facility]. Patient stated she takes it for her hip. Pain scale is a 10 while walking. Please send to [facility] pharmacy is applicable. * Telephone Encounter - [...] Visit [facility] [address] [place] [phone] Sunny Jenkins MD [address] [place] [address] documented as of this encounter Visit Diagnoses Not on filedocumented in this encounter Additional Health Concerns Assessment Noted Time PHQ-9 Depression Total Score: 0 04/24/20 23 7:45 AM EDT documented as of this encounter Care Teams Pneumatic Tool Repairer Relationship Specialty Start Date End Date Sunny Jenkins MD [address] [place] [address] PCP - General Internal Medicine 04/02/23 documented as of this encounter
--- OUTSIDE RECORDS SUMMARY | 2025-05-27 08:41 | XMS_ITS | Encounter Summary ---
Author Organization [facility] Address [address] [place] [address] Care Team Providers Care Route Delivery Clerk Name Role Phone Chris Amanda Primary Care Provider [phone] Janet Dillard DO Unavailable UnavailSunny Coates MD Primary Care Provider [phone] Yvonne Baumann RN Unavailable [phone] Mitch Garcia MD Unavailable [phone] Hilda TempletonC Unavailable [phone] Deepika Garcia Unavailable Unavailable Nona Lomax RD Unavailable [phone] Nia Snider RN Unavailable Unavailable Source Comments In the event this information is protected by the Federal Confidentiality of Alcohol and Drug AbusePatient Records regulations: The Federal rules restrict any use of the information to criminally investigate or prosecute any alcohol or drug abuse patient.[facility] Encounter Details Date Type Department Care Team (Late st Contact Info) Description 08/09/2023 Patient Msishaan iPawn [facility] [address] [place] [address] Jesus Otoole, MS [address] [place] [address] Genetic Test Result Social History Tobacco Use [...] No 07/30/2023 Area Deprivation Index Answer Date Joqauin rded National Score (1-100), lower number is lower ri sk 92 01/29/2023 State Score (1-10), lower number is lower risk 9 01/29/2023 Data from: https://www.neighborhoodatlas.medicine.[facility].edu/. Last address used for calculation Armando [...] AM EDT Specialty [facility]acy [facility] [address] [place] [address] Pharmacist, Specialtygroup [address] [place] [address] [place] [address] Refill - Kisqali [28DS] 06/08/2025 9:00 AM EDT Office Visit Rheumatology 5700 [place] [address] Immanuel Oliveros APRN.BYPRODUCTS EXTRACTOR [address] [facility] [place], [place] [address] RA 06/10/2025 1:30 PM EDT Appointment Procedures [address] [place] [address] Debbie Gunn MD [address] [place] [address] [place] [address] 07/07/2025 9:00 AM EST [facility] Hematology/Oncolo gy [address] [facility] [place] [place] [address] lab 07/14/2025 9:30 AM EST [facility] Hematology [address] [place] [address] Mitch Garcia MD [address] [place] [address] Schedule labs prior to Virtual visit with DR Garcia 07/15/2025 9:00 AM EST [facility] Hematology/Oncolo gy [address] [facility] [place] [place] [address] Prolia injection day after RADHA virtual visit per staff message 08/23/2025 10:00 AM EST Office Visit Kidney Medicine [address] [place] [address] Shante Carroll APRN.BYPRODUCTS EXTRACTOR [address] [facility] [place] [address] 6 month follow up documented as of this encounter Visit Diagnoses Not on filedocumented in this encounter Care Teams Route Delivery Clerk Relationship Specialty Start Date End Date Chris Amanda PCP - General 01/28/07 08/21/23 Sunny Jenkins MD PCP - General Internal Medicine 08/22/23 Janet Dillard DO Referring Family Medicine 07/14/21 Yvonne Baumann, RN [address] [place] [address] [place] [address] Specialty Emt/Paramedic Hematology/Oncology 09/23/23 04/21/24 Mitch Garcia MD [address] [place] [address] [place] [address] Physician Hematology/Oncology 09/23/23 Hilda Templeton PA-C [address] [place] [address] [place] [address] Physician Claims Sorter Hematology/Oncology 09/23/23 Deepika Garcia LSW Recreation Superintendent 09/24/[address] [place] [address] [place] [address] Registered Dietitian Nutrition 10/22/23 Nia Snider, MALORIE Specialty Emt/Paramedic Hematology/Oncology 04/22/24 documented as of this encounter
--- OUTSIDE RECORDS SUMMARY | 2025-05-27 08:41 | XMS_ITS | Encounter Summary ---
Author Organization [facility] Address [address] [place] [address] Care Team Providers Care Crop Adjuster Name Role Phone Chris Amanda Primary Care Provider [phone] Janet Dillard DO Unavailable UnavailSunny Coates MD Primary Care Provider [phone] Yvonne Baumann RN Unavailable [phone] Mitch Garcia MD Unavailable [phone] Hilda TempletonC Unavailable [phone] Deepika Garcia Unavailable Unavailable Nona Lomax RD Unavailable [phone] Nia Snidre RN Unavailable Unavailable Source Comments In the event this information is protected by the Federal Confidentiality of Alcohol and Drug AbusePatient Records regulations: The Federal rules restrict any use of the information to criminally investigate or prosecute any alcohol or drug abuse patient.[facility] Encounter Details Date Type Department Care Team (Late st Contact Info) Description 05/22/2016 Patient Msg Medical Records [address] [place] [address] Provider, [facility] Procedure Social [...] EDT Specialty Pharmacy [facility] [address] [facility] [address] [place] [address] Pharmacist, Specialtygroup [address] [place] [address] [place] [address] Refill - Kisqali [28DS] 06/08/2025 9:00 AM EDT Office Visit Rheumatology 5700 [place] [address] Immanuel Oliveros APRN.CABLE WORKER HELPER 5700 [place] [address] RA 06/10/2025 1:30 PM EDT Appointment Procedures [address] [place] [address] Debbie Gunn MD [address] [place] [address] [place], [place] [address] 07/07/2025 9:00 AM EST Infusion Center Hematology/Oncolo gy [address] [facility] [place] [address] lab 07/14/2025 9:30 AM EST [facility] Hematology [address] [place] [address] Mitch Garcia MD [address] [place] [address] Schedule labs prior to Virtual visit with DR Garcia 07/15/2025 9:00 AM EST Infusion Center Hematology/Oncolo gy [address] [facility] [place] [address] Prolia injection day after RADHA virtual visit per staff message 08/23/2025 10:00 AM EST Office Visit Kidney Medicine [address] [facility] [place] [address] Shante Carroll APRN.CABLE WORKER HELPER [address] [facility] [place] [address] 6 month follow up documented as of this encounter Visit Diagnoses Not on filedocumented in this encounter Additional Health Concerns Infection Onset Date Last Indicated Resolved Time COVID-19 Rule-Out 03/14/2022 03/14/2022 03/14/2022 4:49 PM EDT documented as of this encounter Care Teams Crop Adjuster Relationship Specialty Start Date End Date Chris Amanda PCP - General 01/28/07 08/21/23 Sunny Jenkins MD PCP - General Internal Medicine 08/22/23 Janet Dillard DO Referring Family Medicine 07/14/21 Yvonne Baumann, RN [address] [place] [address] [place] [address] Specialty Breaking Machine Operator Hematology/Oncology 09/23/23 04/21/24 Mitch Garcia MD [address] [place] [address] [place] [address] Physician Hematology/Oncology 09/23/23 Hilda Templeton, PA-C [address] [place] [address] [place] [address] Physician Data Entry Associate Hematology/Oncology 09/23/23 Deepika Garcia LSW Pet Care Associate 09/24/[address] [place] [address] [place] [address] Registered Dietitian Nutrition 10/22/23 Nia Snider, MALORIE Specialty Breaking Machine Operator Hematology/Oncology 04/22/24 documented as of this encounter
--- OUTSIDE RECORDS SUMMARY | 2025-05-27 08:41 | XMS_ITS | Encounter Summary ---
Author Organization [facility] Address [address] [place] [address] Care Team Providers Care Propulsion Motor And Generator Repairer Name Role Phone Janet Dillard DO Primary Care Provider [phone] Janet Dillard DO Unavailable [phone] Unallocated, Noms Provider MD Primary Care Provi gaurang Janet Dillard DO Unavailable [phone] Encounter Details Date Type Department Care Team (Late st Contact Info) Description 02/28/2023 External Result Encounter [facility] External Department Unsolicited MereisabellaNikko, DO [address] [place] [address] Social History Tobacco Use Types Packs/Day Years [...] Pat Roberts M.D.02/28/2023 3:33 PM Dictation Location: [place] [address] Tech: Betty Payne Transcribed By: ZULAY 02/28/23 1533 Dictated By: Pat Roberts MD 02/28/23 1524 Signed By: <Electronically signed by MD Pat Roberts in OV> 02/28/23 1533 Narrative 03/04/2023 3:39 PM EDT [place] [address] Ultrasound Report Signed Patient: Yue Solomon MR#: [id number] : 1955 Acct:[id number] Age/Sex: 67 / F ADM Date: 02/28/23 Loc: Room: Type: [facility] Attending Dr: Nikko Astorga DO Ordering Provider: Nikko Astorga DO Date of Service: 02/28/23 US/US needle aspiration: E04.1 Copies to: Nikko Astorga DO ULTRASOUND-GUIDED RIGHT THYROID NODULE BIOPSY CLINICAL DATA: Bilateral thyroid nodules on previous outside imaging COMPARISON: 03/29/2022 from [facility]. Real-time ultrasound evaluation of the thyroid [...] aspiration Procedure Note Radiology, Radiologist, - 03/04/2023 [facility] [address] Ultrasound Report Signed Patient: Yue Solomon JMR#: [id number] : 5Acct:[id number] Age/Sex: 67 / FADM Date: 02/28/23 Loc: Room:Type: [facility] Attending Dr: Nikko Astorga DO Ordering Provider: Nikko Astorga DO Date of Service: 02/28/23 US/US needle aspiration: E04.1 Copies to: Nikko Astorga DO ULTRASOUND-GUIDED RIGHT THYROID NODULE BIOPSY CLINICAL DATA: Bilateral thyroid nodules on previous outside imaging COMPARISON: 03/29/2022 from [facility]. Real-time ultrasound evaluation of the thyroid [...] preparation and local anesthesia with lidocaine, three 65-pyhpducik-jeisvs aspiration specimens were obtained under direct ultrasound [...] Pat Roberts M.D.02/28/2023 3:33 PM Dictation Location: [place] [address] Tech: Betty Payne Transcribed By: ZULAY 02/28/23 1533 Dictated By: Pat Roberts MD 02/28/23 1524 Signed By: <Electronically signed by MD Pat Roberts in OV> 02/28/23 1533 us Nikko Astorga DO IMG XR PROCEDURES Final Res ult documented in this encounter Visit Diagnoses Not on filedocumented in this encounter Care Teams Propulsion Motor And Generator Repairer Relationship Specialty Start Date End Date Janet Dillard DO PCP - General Family Medicine 01/16/23 04/02/23 aJnet Dillard DO [address] [facility] 200 [place] [address] PCP - ACO Reach 01/17/23 10/01/24 Unallocated, Noms Provider, MD Kimber [facility] [place] [address] PCP - General 04/03/23 Janet Dillard DO [address] [facility] 200 [place] [id number] PCP - ACO Reach 10/09/24 11/26/24 documented as of this encounter
--- OUTSIDE RECORDS SUMMARY | 2025-05-27 08:41 | XMS_ITS | Encounter Summary ---
Author Organization [facility] tem Address [id number] [address] [place] [address] Care Team Providers Care Laminating Machine Operator Helper Name Role Phone Sunny Jenkins MD Primary Care Provider [phone] Encounter Details Date Type Department Care Team (Late st Contact Info) Description 07/11/2023 Orders Only Vannessa Odonnell [facility] - Medical Oncology [address] [place] [phone] Juan David Good MD [address] [place] [address] [address] [place] [address] [id number] Social History Tobacco Use Types Packs/Day Years [...] Description 06/22/2025 9:00 AM EDT Office Visit [facility] Physicians Family Medicine [address] [place] [address] [place] [phone] Sunny Jenkins MD [address] [facility] D [facility] [phone] documented as of this encounter Visit Diagnoses Not on filedocumented in this encounter Additional Health Concerns Assessment Noted Time PHQ-9 Depression Total Score: 3 05/14/20 23 3:00 PM EDT documented as of this encounter Care Teams Laminating Machine Operator Helper Relationship Specialty Start Date End Date Sunny Jenkins MD [address] [facility] [place] [address] PCP - General Internal Medicine 04/02/23 documented as of this encounter
--- OUTSIDE RECORDS SUMMARY | 2025-05-27 08:41 | XMS_ITS | Encounter Summary ---
Author Organization [facility] Address [address] [place] [place] [address] Care Team Providers Care Sales Representative Supervisor Name Role Phone Janet Dillard DO Unavailable [phone] Unallocated, Noms Provider Primary Care Provi gaurang Janet Dillard DO Unavailable [phone] Encounter Details Date Type Department Care Team (Late st Contact Info) Description 04/24/2023 Abstract [facility] Family Medicine [address] [facility] [place] [phone] Janet Dillard DO 1714 [facility] 200 [place] [address] Social History Tobacco Use Types [...] on filedocumented in this encounter Care Teams Sales Representative Supervisor Relationship Specialty Start Date End Date Janet Dillard DO 171 [facility] 200 [place] [address] PCP - ACO Reach 01/17/23 10/01/24 Unallocated, Noms Provider, MD [place] [address] PCP - General 04/03/23 Janet Dillard DO 1715 [facility] 200 [place] [address] PCP - ACO Reach 10/09/24 11/26/24 documented as of this encounter
--- OUTSIDE RECORDS SUMMARY | 2025-05-27 08:41 | XMS_ITS | Encounter Summary ---
Author Organization [facility] Address [address] [place] [address] Care Team Providers Care Supervisor Inspection Department Name Role Phone Janet Dillard DO Unavailable Unavailabl Sunny Stone MD Primary Care Provider [phone] Mitch Garcia MD Unavailable [phone] Deepika Garcia Unavailable Unavailable Nona Lomax RD Unavailable [phone] Nia Snider RN Unavailable Unavailable Source Comments In the event this information is protected by the Federal Confidentiality of Alcohol and Drug AbusePatient Records regulations: The Federal rules restrict any use of the information to criminally investigate or prosecute any alcohol or drug abuse patient.[facility] Encounter Details Date Type Department Care Team (Late st Contact Info) Description 08/12/2024 Patient Msg Nuclear Medicine [address] [place] [address] Provider, Ccf Scheduling Social History Tobacco Use [...] No 07/30/2023 Housing Stability Vital Sign Answer Raaf e Recorded In the last 12 months, [...] risk 9 01/29/2023 Data from: https://www.neighborhoodatlas.medicine.[facility].edu/. Last address used for calculation Armando [...] AM EDT Specialty Pharmacy [facility] [address] [place] [address] Drive [address] [place], [place] [id number] Pharmacist, [facility] [address] [place] [address] [place] [address] Refill - Kisqali [28DS] C10/20 06/08/2025 9:00 AM EDT Office Visit Rheumatology 5700 [facility] Caroline [facility] [place] [address] Immanuel Oliveros APRN.PRODUCT TECHNOLOGY SCIENTIST 5700 [facility] CAROLINE [facility] [place] [address] RA 06/10/2025 1:30 PM EDT Appointment Procedures [address] [facility] [address] Debbie Gunn MD [address] [place] [address] [place], [place] [id number] 07/07/2025 9:00 AM [facility] Hematology/Oncolo [address] [place] [address] lab 07/14/2025 9:30 AM EST [facility] Hematology [address] [place] [address] Mitch Garcia MD [address] [place] [address] Schedule labs prior to Virtual visit with DR Garcia 07/15/2025 9:00 AM EST Infusion Center Hematology/Oncolo gy [address] [facility] [place] [address] Prolia injection day after RADHA virtual visit per staff message 08/23/2025 10:00 AM EST Office Visit Kidney Medicine [address] [place] [address] Shante Carroll APRN.PRODUCT TECHNOLOGY SCIENTIST [address] [facility] [place] [address] 6 month follow up documented as of this encounter Visit Diagnoses Not on filedocumented in this encounter Care Teams Supervisor Inspection Department Relationship Specialty Start Date End Date Sunny Jenkins MD PCP - General Internal Medicine 08/22/23 Janet Dillard DO Referring Family Medicine 07/14/21 Mitch Garcia MD [address] [place] [address] Physician Hematology/Oncology 09/23/23 Deepika Garcia LSW Gold Charmer 09/24/[address] [place] [address] [place] [address] Registered Dietitian Nutrition 10/22/23 Nia Snider, RN Specialty Sales Officer Hematology/Oncology 04/22/24 documented as of this encounter
--- OUTSIDE RECORDS SUMMARY | 2025-05-27 08:41 | XMS_ITS | Encounter Summary ---
Author Organization [facility] Address [address] [place] [address] Care Team Providers Care Jawbone Puller Name Role Phone Janet Dillard DO Primary Care Provider Janet Dillard DO Unavailable [phone] Unallocated, Noms Provider MD Primary Care Provi gaurang Janet Dillard DO Unavailable [phone] Encounter Details Date Type Department Care Team (Late st Contact Info) Description 03/01/2023 Abstract [facility] Family Medicine [address] [place] [address] Janet Dillard DO [address] [phone] Social History Tobacco Use Types Packs/Day Years [...] on filedocumented in this encounter Care Teams Jawbone Puller Relationship Specialty Start Date End Date Janet Dillard DO PCP - General Family Medicine 01/16/23 04/02/23 Janet Dillard DO 1715 [facility] [address] [place] [address] PCP - ACO Reach 01/17/23 10/01/24 Unallocated, Noms Provider, [place] [address] PCP - General 04/03/23 Janet Dillard, 1715 [facility] 200 [place] [address] PCP - ACO Reach 10/09/24 11/26/24 documented as of this encounter
--- OUTSIDE RECORDS SUMMARY | 2025-05-27 08:41 | XMS_ITS | Encounter Summary ---
Author Organization [facility] Address [address] [place] [address] Care Team Providers Care Supply Tech Name Role Phone Chris Amanda Primary Care Provider [phone] Janet Dillard DO Unavailable UnavailSunny Coates MD Primary Care Provider [phone] Yvonne Baumann RN Unavailable [phone] Mitch Garcia MD Unavailable [phone] Hilda TempletonC Unavailable [phone] Deepika Gracia Unavailable Unavailable Nona Lomax RD Unavailable [phone] Nia Snider RN Unavailable Unavailable Source Comments In the event this information is protected by the Federal Confidentiality of Alcohol and Drug AbusePatient Records regulations: The Federal rules restrict any use of the information to criminally investigate or prosecute any alcohol or drug abuse patient.[facility] Encounter Details Date Type Department Care Team (Late st Contact Info) Description 05/11/2016 Patient Msg Medical Records 95[address] [place] [address] Provider, Ccf [facility] Medical Procedure Social [...] EDT Specialty Pharmacy [facility] 3[address] [facility] [address] [place] [address] Pharmacist, [facility] [address] [place] [address] [place] [address] Refill - Kisqali [28DS] 06/08/2025 9:00 AM EDT Office Visit Rheumatology 5700 [place] [address] Immanuel Oliveros APRN.COATING LINE WORKER 5700 [place] [address] RA 06/10/2025 1:30 PM EDT Appointment Procedures [address] [place] [address] Debbie Gunn MD [address] [place] [address] [place], [place] [id number] 07/07/2025 9:00 AM EST Infusion Center Hematology/Oncolo gy [address] [facility] [place] [address] lab 07/14/2025 9:30 AM EST [facility] Hematology [address] [place] [address] Mitch Garcia MD 417 [place] [address] Schedule labs prior to Virtual visit with DR Garcia 07/15/2025 9:00 AM EST Infusion Center Hematology/Oncolo gy [address] [facility] [place] [place] [address] Prolia injection day after RADHA virtual visit per staff message 08/23/2025 10:00 AM EST Office Visit Kidney Medicine [address] [facility] [place] [address] Shante Carroll APRN.COATING LINE WORKER [address] [facility] [place] [address] 6 month follow up documented as of this encounter Visit Diagnoses Not on filedocumented in this encounter Additional Health Concerns Infection Onset Date Last Indicated Resolved Time COVID-19 Rule-Out 03/14/2022 03/14/2022 03/14/2022 4:49 PM EDT documented as of this encounter Care Teams Supply Tech Relationship Specialty Start Date End Date Chris Amanda PCP - General 01/28/07 08/21/23 Sunny Jenkins MD PCP - General Internal Medicine 08/22/23 Janet Dillard DO Referring Family Medicine 07/14/21 Yvonne Baumann, RN [address] [place] [address] [place] [address] Specialty Aircraft Seat Upholsterer Hematology/Oncology 09/23/23 04/21/24 Mitch Garcia MD [address] [place] [address] [place] [address] Physician Hematology/Oncology 09/23/23 Hilda Templeton, PA-C [address] [place] [address] [place] [address] Physician Lead Software Engineer Hematology/Oncology 09/23/23 Deepika Garcia LSW Recreation Counselor 09/24/[address] [place] [address] [place] [address] Registered Dietitian Nutrition 10/22/23 Nia Snider, MALORIE Specialty Aircraft Seat Upholsterer Hematology/Oncology 04/22/24 documented as of this encounter
--- OUTSIDE RECORDS SUMMARY | 2025-05-27 08:41 | XMS_ITS | Encounter Summary ---
Author Organization [facility] Address [address] [place] [address] Care Team Providers Care Fleet Administrative Assistant Name Role Phone Janet Dillard DO Primary Care Provider Janet Dillard DO Unavailable [phone] Unallocated, Noms Provider MD Primary Care Provi gaurang Janet Dillard DO Unavailable [phone] Encounter Details Date Type Department Care Team (Late st Contact Info) Description 03/15/2023 Abstract [facility] Otol[facility] [address] [place] [address] Nkiko Astorga DO [address] [place] [address] Social History Tobacco Use Types Packs/Day Years [...] on filedocumented in this encounter Care Teams Fleet Administrative Assistant Relationship Specialty Start Date End Date Janet Dillard DO PCP - General Family Medicine 01/16/23 04/02/23 Janet Dillard DO 1715 [facility] [address] [place] [address] PCP - ACO Reach 01/17/23 10/01/24 Unallocated, Noms Provider, [place] [address] PCP - General 04/03/23 Janet Dillard DO 1715 [facility] [address] [place] [address] PCP - ACO Reach 10/09/24 11/26/24 documented as of this encounter
--- OUTSIDE RECORDS SUMMARY | 2025-05-27 08:41 | XMS_ITS | Encounter Summary ---
Author Organization [facility] Address [address] [place] [address] Care Team Providers Care Rn Transitional Care Name Role Phone Janet Dillard DO Primary Care Provider [phone] Janet Dillard DO Unavailable [phone] Unallocated, Noms Provider MD Primary Care Provi gaurang Janet Dillard DO Unavailable [phone] Encounter Details Date Type Department Care Team (Late st Contact Info) Description 01/17/2023 Orders Only [facility] Otolaryngology [address] [facility] [place] [address] Ban Gil MA Thyroid nodule (Primary Dx) [...] goiter documented in this encounter Care Teams Rn Transitional Care Relationship Specialty Start Date End Date Janet Dillard DO PCP - General Family Medicine 01/16/23 04/02/23 Janet Dillard DO 1715 [facility] [address] [place] [address] PCP - ACO Reach 01/17/23 10/01/24 Unallocated, Noms Provider, [place] [address] PCP - General 04/03/23 Janet Dillrad, 17[address] [facility] [address] [place] [address] PCP - ACO Reach 10/09/24 11/26/24 documented as of this encounter
--- OUTSIDE RECORDS SUMMARY | 2025-05-27 08:41 | XMS_ITS | Encounter Summary ---
Author Organization [facility] Address [address] [place] [address] Care Team Providers Care Etl Data Architect Name Role Phone Janet Dillard DO Unavailable Unavailabl Sunny Stone MD Primary Care Provider [phone] Yvonne Baumann RN Unavailable [phone] Mitch Garcia MD Unavailable [phone] Hilda Templeton PA-C Unavailable [phone] Deepika Garcia SAILING INSTRUCTOR Unavailable Unavailable Nona Lomax RD Unavailable [phone] Nia Snider RN Unavailable Unavailable Source Comments In the event this information is protected by the Federal Confidentiality of Alcohol and Drug AbusePatient Records regulations: The Federal rules restrict any use of the information to criminally investigate or prosecute any alcohol or drug abuse patient.[facility] Encounter Details Date Type Department Care Team (Late st Contact Info) Description 03/04/2024 Patient Msg Hematology [address] [place] [address] Provider, Ccf Schedule Hematology Appointments [...] in a senior care (including now)? No 07/30/2023 Area Deprivation Index Answer Date Joaquin rded National Score (1-100), lower number is lower ri sk 92 01/29/2023 State Score (1-10), lower number is lower risk 9 01/29/2023 Data from: https://www.neighborhoodatlas.medicine.[facility].edu/. Last address used for calculation Armando [...] Date Author No 09/05/2023 8:47 AM Belle Sadnoval RN documented in this encounter Plan of Treatment Upcoming Encounters Date Type Department Care Team (Late st Contact Info) Description 06/07/2025 7:30 AM EDT Specialty Pharmacy [facility] [address] [place], [place] 207074[address] [place] [address] Pharmacist, Specialty[facility] [address] [place] [address] [place] [address] Refill - Kisqali [28DS] C10/20 06/08/2025 9:00 AM EDT Office Visit Rheumatology 5700 [facility] [place] [id number] Immanuel Oliveros APRN.HOME HELP AIDE [address] [place] [address] RA 06/10/2025 1:30 PM EDT Appointment Procedures [address] [facility] [place] [address] Debbie Gunn MD [address] [place] [address] [place] [address] 07/07/2025 9:00 AM EST Infusion Center Hematology/Oncolo gy [address] [place] [address] lab 07/14/2025 9:30 AM EST [facility] Hematology [address] [place] [address] Mitch Garcia MD 417 [place] [address] Schedule labs prior to Virtual visit with DR Garcia 07/15/2025 9:00 AM EST [facility] Hematology/Oncolo gy [address] [place] [address] Prolia injection day after RADHA virtual visit per staff message 08/23/2025 10:00 AM EST Office Visit Kidney Medicine [address] [place] [address] Shante Carroll, LENA.HOME HELP AIDE [address] [facility] [place] [address] 6 month follow up documented as of this encounter Visit Diagnoses Not on filedocumented in this encounter Care Teams Etl Data Architect Relationship Specialty Start Date End Date Sunny Jenkins MD PCP - General Internal Medicine 08/22/23 Janet Dillard DO Referring Family Medicine 07/14/21 Yvonne Baumann, RN [address] [place] [address] [place] [address] Specialty Surgery Manager Hematology/Oncology 09/23/23 04/21/24 Mitch Garcia MD [address] [place] [address] Physician Hematology/Oncology 09/23/23 Hilda Templeton PALeonelC [address] [place] [address] Physician Automobile Upholsterer Hematology/Oncology 09/23/23 Deepika Garcia LSW Manager Change 09/24/[address] [place] [address] Registered Dietitian Nutrition 10/22/23 Nia Snider, MALORIE Specialty Surgery Manager Hematology/Oncology 04/22/24 documented as of this encounter
--- OUTSIDE RECORDS SUMMARY | 2025-05-27 08:41 | XMS_ITS | Encounter Summary ---
Author Organization [facility] Address [address] [place] [address] Care Team Providers Care Mender Hand Name Role Phone Janet Dillard DO Unavailable Unavailabl Sunny Stone MD Primary Care Provider [phone] Yvonne Baumann RN Unavailable [phone] Mitch Garcia MD Unavailable [phone] Hilda Templeton PA-C Unavailable [phone] Deepika Garcia ONCOLOGY REP Unavailable Unavailable Nona Lomax RD Unavailable [phone] Nia Snider RN Unavailable Unavailable Source Comments In the event this information is protected by the Federal Confidentiality of Alcohol and Drug AbusePatient Records regulations: The Federal rules restrict any use of the information to criminally investigate or prosecute any alcohol or drug abuse patient.[facility] Encounter Details Date Type Department Care Team (Late st Contact Info) Description 02/26/2024 Get Medical Advice Radiation Oncology [address] [place] [address] Josef Austin MD [address] [place] [address] Radiation schedule Social History Tobacco Use Types [...] lower risk 9 01/29/2023 Data from: https://www.neighborhoodatlas.medicine.[facility].edu/. Last address used for calculation [...] EDT Specialty Pharmacy [facility] [address] [place], [place] [address]10074-[address] [place] [address] Pharmacist, [facility]ty[facility] [address] [place] [address] [place] [address] Refill - Kisqali [28DS] 06/08/2025 9:00 AM EDT Office Visit Rheumatology 5700 [place], [place] [phone] Immanuel Oliveros APRN.PLASTIC INJECTION MOLD MAKER 5700 [place] [address] RA 06/10/2025 1:30 PM EDT Appointment Procedures [address] [place] [address] Debbie Gunn MD [address] [facility] [address] [place], [place] [address] 07/07/2025 9:00 AM [facility] Center Hematology/Oncolo gy [address] [place] [address] lab 07/14/2025 9:30 AM [facility] Hematology [address] [place] [address] Mitch Garcia MD [address] [place] [address] Schedule labs prior to Virtual visit with DR Garcia 07/15/2025 9:00 AM [facility] Center Hematology/Oncolo gy [address] [place] [address] Prolia injection day after RADHA virtual visit per staff message 08/23/2025 10:00 AM EST Office Visit Kidney Medicine [address] [place] [address] Shante Carroll APRN.PLASTIC INJECTION MOLD MAKER [address] [place] [address] 6 month follow up documented as of this encounter Visit Diagnoses Not on filedocumented in this encounter Care Teams Mender Hand Relationship Specialty Start Date End Date Sunny Jenkins MD PCP - General Internal Medicine 08/22/23 Janet Dillard DO Referring Family Medicine 07/14/21 Yvonne Baumann, RN [address] [place] [address] [place] [address] Specialty Printing Machinist Hematology/Oncology 09/23/23 04/21/24 Mitch Garcia MD [address] [place] [address] [place] [address] Physician Hematology/Oncology 09/23/23 Hilda Templeton PA-C [address] [place] [address] [place] [address] Physician Shop And Alteration Tailor Hematology/Oncology 09/23/23 Deepika Garcia LSW Pushcart Peddler 09/24/[address] [place] [address] [place] [address] Registered Dietitian Nutrition 10/22/23 Nia Snider, MALORIE Specialty Printing Machinist Hematology/Oncology 04/22/24 documented as of this encounter
--- OUTSIDE RECORDS SUMMARY | 2025-05-27 08:41 | XMS_ITS | Encounter Summary ---
Author Organization [facility] Address [address] [place] [address] Care Team Providers Care Senior Label Specialist Name Role Phone Janet Dillard DO Unavailable Unavailabl Sunny Stone MD Primary Care Provider [phone] Mitch Garcia MD Unavailable [phone] Deepika Garcia Unavailable Unavailable Nona Lomax RD Unavailable [phone] Nia Snider RN Unavailable Unavailable Source Comments In the event this information is protected by the Federal Confidentiality of Alcohol and Drug AbusePatient Records regulations: The Federal rules restrict any use of the information to criminally investigate or prosecute any alcohol or drug abuse patient.[facility] Encounter Details Date Type Department Care Team (Late st Contact Info) Description 09/01/2024 Patient Msg Hematology [address] [place] [address] Provider, [facility] Dahliaqali plan Social History Tobacco Use Types Packs/Day [...] is lower risk 9 01/29/2023 Data from: https://www.neighborhoodatlas.medicine.[facility].edu/. Last address used for calculation Armando [...] Pharmacy [facility] [place] [address] Pharmacist, Specialty[facility] [address] [place] [address] Refill - Kisqali [28DS] C10/20 06/08/2025 9:00 AM EDT Office Visit Rheumatology 5700 [facility] [place] [address] Immanuel Oliveros APRN.DUMP WORKER [address] [facility] [address] [facility] [place] [address] RA 06/10/2025 1:30 PM EDT Appointment Procedures [address] [place] [address] Debbie Gunn MD [address] [facility] [address] [place], [place] [address] 07/07/2025 9:00 AM EST Infusion Center Hematology/Oncolo gy [address] [facility] [place] [address] lab 07/14/2025 9:30 AM EST [facility] Hematology [address] [place] [address] Mitch Garcia MD [address] [place] [address] Schedule labs prior to Virtual visit with DR Garcia 07/15/2025 9:00 AM [facility] Hematology/Oncolo gy [address] [facility] [place] [address] Prolia injection day after RADHA virtual visit per staff message 08/23/2025 10:00 AM EST Office Visit Kidney Medicine [address] [place] [address] Shante Carroll APRN.DUMP WORKER [address] [facility] [place] [address] 6 month follow up documented as of this encounter Visit Diagnoses Not on filedocumented in this encounter Care Teams Senior Label Specialist Relationship Specialty Start Date End Date Sunny Jenkins MD PCP - General Internal Medicine 08/22/23 Janet Dillard DO Referring Family Medicine 07/14/21 Mitch Garcia MD [address] [place] [address] Physician Hematology/Oncology 09/23/23 Deepika Garcia LSW Silver Service Waiter 09/24/[address] [place] [address] [place] [address] Registered Dietitian Nutrition 10/22/23 Nia Snider, RN Specialty Warp Tying Machine Knotter Hematology/Oncology 04/22/24 documented as of this encounter
--- OUTSIDE RECORDS SUMMARY | 2025-05-27 08:41 | XMS_ITS | Encounter Summary ---
Author Organization [facility] Address [address] [place] [address] Care Team Providers Care Housing Quality Standard Inspector Name Role Phone Chris Amanda Primary Care Provider [phone] Janet Dillard DO Unavailable UnavailSunny Coates MD Primary Care Provider [phone] Yvonne Baumann RN Unavailable [phone] Mitch Garcia MD Unavailable [phone] Hilda Templeton-C Unavailable [phone] Deepika Garcia Unavailable Unavailable Nona Lomax RD Unavailable [phone] Nia Snider RN Unavailable Unavailable Source Comments In the event this information is protected by the Federal Confidentiality of Alcohol and Drug AbusePatient Records regulations: The Federal rules restrict any use of the information to criminally investigate or prosecute any alcohol or drug abuse patient.[facility] Encounter Details Date Type Department Care Team (Late st Contact Info) Description 01/18/2023 Patient Msg Gastroenterology [address] [place] [address] Provider, [facility] Miralax prep instructions [...] slept in a assisted (including now)? No 03/14/2022 Area Deprivation Index Answer Date Joaquin rded National Score (1-100), lower number is lower ri sk 84 09/07/2022 State Score (1-10), lower number is lower risk N ot on file 09/07/2022 Data from: https://www.neighborhoodatlas.medicine.[facility].edu/. Last address used for calculation Armando [...] EDT Specialty Pharmacy [facility] [address] [place], [place] 383434[address] [place] [address] Pharmacist, [facility]ty[facility] 1 [address] [facility] [place] [address] Refill - Kisqali [28DS] 06/08/2025 9:00 AM EDT Office Visit Rheumatology 5700 [place], [place] [id number] Immanuel Oliveros APRN.PLUMBER PIPE FITTING 5700 [place], [place] 3525953 RA 06/10/2025 1:30 PM EDT Appointment Procedures [address] [place] [address] Debbie Gunn MD [address] [facility] [address] [place], [place] [address] 07/07/2025 9:00 AM [facility] Hematology/Oncolo gy [address] [facility] [place] [address] lab 07/14/2025 9:30 AM [facility] Hematology [address] [place] [address] Mitch Garcia MD 417 [place] [address] Schedule labs prior to Virtual visit with DR Garcia 07/15/2025 9:00 AM [facility] Hematology/Oncolo gy [address] [facility] [place] [address] Prolia injection day after RADHA virtual visit per staff message 08/23/2025 10:00 AM EST Office Visit Kidney Medicine [address] [place] [address] Shante Carroll APRN.PLUMBER PIPE FITTING [address] [facility] [place] [address] 6 month follow up documented as of this encounter Visit Diagnoses Not on filedocumented in this encounter Care Teams Housing Quality Standard Inspector Relationship Specialty Start Date End Date Chris Amanda PCP - General 01/28/07 08/21/23 Sunny Jenkins MD PCP - General Internal Medicine 08/22/23 Janet Dillard DO Referring Family Medicine 07/14/21 Yvonne Baumann RN [address] [place] [address] [place] [address] Specialty Electro Mechanical Technician Hematology/Oncology 09/23/23 04/21/24 Mitch Garcia MD [address] [facility] [place] [address] Physician Hematology/Oncology 09/23/23 Hilda Templeton PA-C [address] [place] [address] [place] [address] Physician Investigator Narcotics Hematology/Oncology 09/23/23 Deepika Garcia LSW Loan Service Officer 09/24/[address] [place] [address] [place] [address] Registered Dietitian Nutrition 10/22/23 Nia Snider, RN Specialty Electro Mechanical Technician Hematology/Oncology 04/22/24 documented as of this encounter
--- OUTSIDE RECORDS SUMMARY | 2025-05-27 08:41 | XMS_ITS | Encounter Summary ---
Author Organization [facility] Address [address] [place] [address] Care Team Providers Care Entertainment & Media Correspondent Name Role Phone Janet Dillard DO Primary Care Provider [phone] Janet Dillard DO Unavailable [phone] Unallocated, Noms Provider MD Primary Care Provi gaurang Janet Dillard DO Unavailable [phone] Encounter Details Date Type Department Care Team (Late st Contact Info) Description 03/13/2023 Abstract [facility] Otolaryngology [address] [place] [address] Nikko Astorga DO [address] [place] [address] Social History Tobacco Use Types Packs/Day Years [...] on filedocumented in this encounter Care Teams Entertainment & Media Correspondent Relationship Specialty Start Date End Date Janet Dillard DO PCP - General Family Medicine 01/16/23 04/02/23 Janet Dillard DO [address] [facility] [address] [place] [phone] PCP - ACO Reach 01/17/23 10/01/24 Unallocated, Noms Provider, [place] [address] PCP - General 04/03/23 Janet Dillard DO [address] [facility] [address] [place] [phone] PCP - ACO Reach 10/09/24 11/26/24 documented as of this encounter
--- OUTSIDE RECORDS SUMMARY | 2025-05-27 08:41 | XMS_ITS | Clinical Summary ---
Author Organization [facility] Address [address] [place] [address] Care Team Providers Care Water Trainer Name Role Phone Unallocated, [facility] Provider MD Primary Care Provi gaurang Allergies [...] Take before meals. Active Cholecalciferol (Vitamin D3) 088136 UNIT/GM powder Take 1 capsule by mouth [...] 03/05/2025 9:00 AM EDT Ancillary Procedure [facility] [address] [facility] [address] [place] [phone] Encounter for screening mammogram for malignant neoplasm [...] IMPORTANT TO YOUR HEALTH. THE MAURITIAN CANCER SOCIETYGUIDELINES RECOMMEND THAT WOMEN 40 YEARS OF AGE AND OLDER SHOULD HAVE AMAMMOGRAM EVERY YEAR. A REMINDER LETTER WILL BE SENT AT THE APPROPRIATE TIME. ELECTRONICALLY SIGNED BY: Yusuf Sttaon M.D. us Jesi Gerard MD IMG BI PROCEDURES Final Resul t * Colonoscopy (07/23/2016 12:00 PM EST) Anatomical Region Laterality Modality Endoscopy 07/23/2016 12:0 0 PM EST Narrative 07/23/2016 12:00 PM EST PERFORMED AT [facility] LOCATION:[id number] Procedure Note CONVERSION, GENERIC - 01/10/2023 PERFORMED AT [facility] LOCATION:[id number] Chris Amanda ENDOSCOPY PROCEDURE ORDERABLES Final Result from Last 3 Months or Most Recently Relevant to Health Maintenance Insurance [facility]ICARE [facility] Advance Directives Documents on File Type Date Recorded Patient Laboratory Scientist Expl anation Advance Directives and Living Will 04/08/2018 2018-04-08 full code Care Teams Water Trainer Relationship Specialty Start Date End Date Unallocated, Noms Provider, [address] [place], [place] [id number] PCP - General 04/03/23
--- OUTSIDE RECORDS SUMMARY | 2025-05-27 08:41 | XMS_ITS | Encounter Summary ---
Author Organization [facility] Address [address] [place] [place] [address] Care Team Providers Care Patient Financial Services Manager Name Role Phone Janet Dillard DO Unavailable Unavailabl Sunny Stone MD Primary Care Provider [phone] Mitch Garcia MD Unavailable [phone] Deepika Garcia Unavailable Unavailable Nona Lomax RD Unavailable [phone] Nia Snider RN Unavailable Unavailable Source Comments In the event this information is protected by the Federal Confidentiality of Alcohol and Drug AbusePatient Records regulations: The Federal rules restrict any use of the information to criminally investigate or prosecute any alcohol or drug abuse patient.[facility] Reason for Visit * Reason Comments Radiology Pre Procedure Instructions Encounter Details Date Type Department Care Team (Late st Contact Info) Description 08/24/2024 Telephone [facility] [address] [place] [address] Kishan Barrios, seed and fertilizer specialist Pre Procedure Instructions Social History Tobacco Use [...] lower risk 9 01/29/2023 Data from: https://www.neighborhoodatlas.medicine.[facility].edu/. Last address used for calculation [...] arrive at 1130 am and Report to [facility] First Floor Radiology Registration Desk. You can expect to be here for 4-8 hours. Diet: You may eat. Medications: Ok to take your cardiac, blood pressure, anti-seizure, and chronic pain medications with a sip of water, please take prior to arrival. Bring your current medication list. Labs: Lab-work needs to be drawn? No.. Atm Mechanic/Transportation: How will you be arriving for your procedure? Private car. You will need a responsible adult to accompany you to and from the procedure. Your pile driver is required to stay with you until you are taken into the procedure room. Questions: [phone] documented in this encounter Plan of Treatment Upcoming Encounters Date Type Department Care Team (Late st Contact Info) Description 06/07/2025 7:30 AM EDT Specialty Pharmacy [facility] [address] [facility] [address] [place] [address] Pharmacist, Specialty[facility] [address] [place] [address] [address] [place] [id number] Refill - Kisqali [28DS] 06/08/2025 9:00 AM EDT Office Visit Rheumatology 5700 [facility] [place] [id number] Immanuel Oliveros APRN.PROFESSOR OF VIOLIN [address] [facility] [place] [id number] RA 06/10/2025 1:30 PM EDT Appointment Procedures [address] [place] [address] Debbie Gunn MD [address] [place] [address] [address] [place], [place] [id number] 07/07/2025 9:00 AM EST Infusion Center Hematology/Oncolo gy [address] [facility] [place] [address] lab 07/14/2025 9:30 AM EST [facility] Hematology [address] [place] [address] Mitch Garcia MD [address] [place] [address] Schedule labs prior to Virtual visit with DR Garcia 07/15/2025 9:00 AM EST Infusion Center Hematology/Oncolo gy [address] [facility] [place] [address] Prolia injection day after RADHA virtual visit per staff message 08/23/2025 10:00 AM EST Office Visit Kidney Medicine [address] [place] [address] Shante Carroll, PROOFER BLACK AND WHITE.PROFESSOR OF VIOLIN [address] [place] [address] 6 month follow up documented as of this encounter Visit Diagnoses Not on filedocumented in this encounter Care Teams Patient Financial Services Manager Relationship Specialty Start Date End Date Sunny Jenkins MD PCP - General Internal Medicine 08/22/23 Janet Dillard DO Referring Family Medicine 07/14/21 Mitch Garcia MD [address] [facility] [place] [address] Physician Hematology/Oncology 09/23/23 Deepika Garcia LSW Loan Servicing Officer 09/24/[address] [facility] [place] [address] Registered Dietitian Nutrition 10/22/23 Nia Snider, MALORIE Specialty Scoreboard Operator Hematology/Oncology 04/22/24 documented as of this encounter
--- OUTSIDE RECORDS SUMMARY | 2025-05-27 08:41 | XMS_ITS | Clinical Summary ---
Author Organization [facility] Address [id number] [address] [place] [address] Care Team Providers Care K 9 Police Officer Name Role Phone Sunny Jenkins MD Primary Care Provider [phone] Allergies Active Allergy Reactions Criticality Noted Date Comments Adhesive Other (See Comments) 04/02/2023 Adhesive Tape-Silicones Rash Low 07/29/2023 Fentanyl 12/20/2018 Sulfa (Sulfonamide Antibiotics) Rash Low 11/25 Medications cholecalciferol, vitamin D3, 5,000 units tablet Take 1 tablet (5,000 Units total) by mouth in the morning. Active nystatin-triamcino lone (MYCOLOG II) ointmentIndication s:Jessica infection Apply 1 Application topically in the morning and 1 Application before bedtime. 30 g 05/14/20 23 Active acetaminophen (TYLENOL EXTRA STRENGTH) 500 mg tablet Take 2 tablets (1,000 mg total) by mouth every 6 (six) hours as needed for pain. 100 tablet 1 07/16/20 23 Active methotrexate 2.5 mg chemo tablet TAKE 6 TABLETS ONCE A WEEK. 6 tablet 10/08/19 24 Active folic acid (FOLVITE) 1 mg tablet TAKE 1 TABLET BY MOUTH IN THE MORNING. EXCEPT THE DAYS OF TAKING METHOTREXATE. 90 tablet 1 12/31/19 24 Active Lactobacillus acidophilus 500 million cell tablet Take by mouth in the morning. Active metoprolol tartrate (LOPRESSOR) 50 mg tabletIndications: Hypertension, unspecified type Take 1 tablet (50 mg total) by mouth in the morning and 1 tablet (50 mg total) before bedtime. 180 tablet 2 06/04/20 24 Active predniSONE 5 mg tablets,dose packIndications:Se ropositive rheumatoid arthritis (CMS-HCC),Hip pain, unspecified laterality,Polyart hralgia One tab in the morning and one evening in the evening. 60 each 06/10/20 24 Active losartan (COZAAR) 50 mg tabletIndications: Hypertension, unspecified type Take 1 tablet (50 mg total) by mouth in the morning. 180 tablet 2 07/22/20 24 Active atorvastatin (LIPITOR) 40 mg tabletIndications: ASCVD (arteriosclerotic cardiovascular disease) TAKE 1 TABLET (40 MG TOTAL) BY MOUTH IN THE MORNING 90 tablet 2 07/26/20 24 Active spironolactone (ALDACTONE) 25 mg tabletIndications: Edema, unspecified type TAKE 1 TABLET (25 MG TOTAL) BY MOUTH IN THE MORNING 90 tablet 2 09/13/19 25 Active naproxen (NAPROSYN) 500 mg tabletIndications: Hip pain, unspecified laterality TAKE 1 TABLET (500 MG TOTAL) BY MOUTH IN THE MORNING AND BEFORE BEDTIME 60 tablet 2 10/14/19 25 Active KLOR-CON M10 10 mEq CR tabletIndications: Edema, unspecified type TAKE 1 TABLET (10 MEQ TOTAL) BY MOUTH IN THE MORNING AND 1 TABLET (10 MEQ TOTAL) BEFORE BEDTIME. 180 tablet 1 10/20/19 25 Active furosemide (LASIX) 20 mg tabletIndications: Edema, unspecified type TAKE 1 TABLET BY MOUTH 2 TIMES A DAY BEFORE MEALS. 180 tablet 1 01/21/20 25 Active nystatin (MYCOSTATIN) creamIndications:Y east dermatitis Apply 1 Application topically in the morning and 1 Application before bedtime. 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 that she had DIRECTOR OF HOUSING but another told her she did not have it Does use inhaler + GLOVER and orthopnea Encounters Date Type Department Care Team Description 04/12/2025 Orders Only [facility] [address] [place] [phone] Julian Mathew, DO Acute recurrent pansinusitis 04/12/2025 Telephone [facility] [address] [place] [address] [place] [phone] Merary Resendiz CNA Sinusitis 04/05/2025 1:00 PM EDT Office Visit [facility] [address] [place] [address] [place] [phone] Julian Mathew, Acute recurrent pansinusitis (Primary Dx); Vaginal candidiasis; Yeast dermatitis 04/05/2025 Travel 03/30/2025 Orders Only [facility] [place] [phone] Merary Resendiz CNA Encounter for screening mammogram for malignant neoplasm of breast from Last 3 Months Immunizations Immunization Administration Dates Next Due COVID-19, mRNA, LNP-S, PF, 100mcg/0.5mL Dose Pneumococcal Conjugate 13-Valent 02/14/2021,07/26 Pneumococcal Polysaccharide 12/31/2021 Zoster Vaccine Recombinant 04/28/2022,02/14/2021 [...] Office Visit [facility] [address] [place] [address] [place] [phone] Sunny Jenkins MD 605 [place] [address] Health Maintenance Due Date Last Done Comments Statin Use: Cardiovascular 1955 Adult BMI Follow Up Plan 1972 DTaP,Tdap and Td Vaccines (1 - Tdap) 1973 COVID-19 Vaccine ( - season) 2025 12/09/2022, 07/19/2021, 11/23/2020 Influenza Vaccine 04/26/2025 Fall [...] Laterality Modality Breast Bilateral Mammography Jesi Gerard LENS HARDENER-FLYER MAKER IMG MAMMOGRAPHY ORDERAB LES Final Result from Last 3 Months Insurance MEDICARE [facility] [place] [id number] Care Teams K [id number] Police Officer Relationship Specialty Start Date End Date Sunny Jenkins MD [address] [facility] [place] [place] [address] PCP - General Internal Medicine 04/02/23
--- OUTSIDE RECORDS SUMMARY | 2025-05-27 08:41 | XMS_ITS | Encounter Summary ---
Author Organization [facility] Address [address] [place] [address] Care Team Providers Care Pipe Straightener Name Role Phone Chris Amanda Primary Care Provider [phone] Janet Dillard DO Unavailable UnavailSunny Coates MD Primary Care Provider [phone] Yvonne Baumann RN Unavailable [phone] Mitch Garcia MD Unavailable [phone] Hilda TempletonC Unavailable [phone] Deepika Garcia Unavailable Unavailable Nona Lomax RD Unavailable [phone] Nia Snider RN Unavailable Unavailable Source Comments In the event this information is protected by the Federal Confidentiality of Alcohol and Drug AbusePatient Records regulations: The Federal rules restrict any use of the information to criminally investigate or prosecute any alcohol or drug abuse patient.[facility] Encounter Details Date Type Department Care Team (Late st Contact Info) Description 05/22/2016 Patient Msg Medical Records [address] [place] [address] Provider, [facility] Procedure Social [...] EDT Specialty Pharmacy [facility] [address] [facility] [address] [place] [address] Pharmacist, [facility] [address] [place] [address] [place] [address] Refill - Kisqali [28DS] 06/08/2025 9:00 AM EDT Office Visit Rheumatology 5700 [place] [address] Immanuel Oliveros APRN.DINING SERVICE WORKER 5700 [place] [address] RA 06/10/2025 1:30 PM EDT Appointment Procedures [address] [place] [address] Debbie Gunn MD [address] [place] [address] [address] [place], [place] [id number] 07/07/2025 9:00 AM EST Infusion Center Hematology/Oncolo gy [address] [facility] [place] [address] lab 07/14/2025 9:30 AM EST [facility] Hematology [address] [place] [address] Mitch Garcia MD [address] [place] [address] Schedule labs prior to Virtual visit with DR Garcia 07/15/2025 9:00 AM EST Infusion Center Hematology/Oncolo gy [address] [facility] [place] [address] Prolia injection day after RADHA virtual visit per staff message 08/23/2025 10:00 AM EST Office Visit Kidney Medicine [address] [facility] [place] [address] Shante Carroll APRN.DINING SERVICE WORKER [address] [facility] [place] [address] 6 month follow up documented as of this encounter Visit Diagnoses Not on filedocumented in this encounter Additional Health Concerns Infection Onset Date Last Indicated Resolved Time COVID-19 Rule-Out 03/14/2022 03/14/2022 03/14/2022 4:49 PM EDT documented as of this encounter Care Teams Pipe Straightener Relationship Specialty Start Date End Date Chris Amanda PCP - General 01/28/07 08/21/23 Sunny Jenkins MD PCP - General Internal Medicine 08/22/23 Janet Dillard DO Referring Family Medicine 07/14/21 Yvonne Baumann, RN [address] [place] [address] [place] [address] Specialty Generator Operator Hematology/Oncology 09/23/23 04/21/24 Mitch Garcia MD [address] [place] [address] [place] [address] Physician Hematology/Oncology 09/23/23 Hilda Templeton, PA-C [address] [place] [address] [place] [address] Physician Piper Installer Hematology/Oncology 09/23/23 Deepika Garcia LSW Customs Examiner 09/24/[address] [place] [address] [place] [address] Registered Dietitian Nutrition 10/22/23 Nia Snider, MALORIE Specialty Generator Operator Hematology/Oncology 04/22/24 documented as of this encounter
--- OUTSIDE RECORDS SUMMARY | 2025-05-27 08:41 | XMS_ITS | Encounter Summary ---
Author Organization [facility] Address [address] [place] [address] Care Team Providers Care Fitness Manager Name Role Phone Chris Amanda Primary Care Provider [phone] Janet Dillard DO Unavailable UnavailSunny Coates MD Primary Care Provider [phone] Yvonne Baumann RN Unavailable [phone] Mitch Garcia MD Unavailable [phone] Hilda Templeton-C Unavailable [phone] Deepika Garcia Unavailable Unavailable Nona Lomax RD Unavailable [phone] Nia Snider RN Unavailable Unavailable Source Comments In the event this information is protected by the Federal Confidentiality of Alcohol and Drug AbusePatient Records regulations: The Federal rules restrict any use of the information to criminally investigate or prosecute any alcohol or drug abuse patient.[facility] Encounter Details Date Type Department Care Team (Late st Contact Info) Description 01/07/2023 Patient Msg Gastroenterology [address] [id number] Provider, Kaylenef KASEY COLONOSCOPY PREPARATION Social History [...] N ot on file 09/07/2022 Data from: https://www.neighborhoodatlas.medicine.[facility].edu/. Last address used for calculation Armando [...] EDT Specialty Pharmacy [facility] [address] [place], [place] 622504-b-100 [place] [address] Pharmacist, Specialtygroup 1 [address] [facility] [place] [address] Refill - Kisqali [28DS] 06/08/2025 9:00 AM EDT Office Visit Rheumatology 5700 [place], [place] [id number] Immanuel Oliveros APRN.MINGLER OPERATOR 5700 [place], [place] [id number] RA 06/10/2025 1:30 PM EDT Appointment Procedures [address] [place] [address] Debbie Gunn MD [address] [facility] [address] [place], [place] [id number] 07/07/2025 9:00 AM [facility] Center Hematology/Oncolo gy [address] [place] [address] lab 07/14/2025 9:30 AM [facility] Hematology [address] [place] [address] Mitch Garcia MD [address] [place] [address] Schedule labs prior to Virtual visit with DR Garcia 07/15/2025 9:00 AM [facility] Hematology/Oncolo gy [address] [place] [address] Prolia injection day after RADHA virtual visit per staff message 08/23/2025 10:00 AM EST Office Visit Kidney Medicine [address] [place] [address] Shante Carroll APRN.MINGLER OPERATOR [address] [facility] [place] [address] 6 month follow up documented as of this encounter Visit Diagnoses Not on filedocumented in this encounter Care Teams Fitness Manager Relationship Specialty Start Date End Date Chris Amanda PCP - General 01/28/07 08/21/23 Sunny Jenkins MD PCP - General Internal Medicine 08/22/23 Janet Dillard DO Referring Family Medicine 07/14/21 Yvonne Baumann RN [address] [place] [address] [place] [address] Specialty Make Ready Mechanic Hematology/Oncology 09/23/23 04/21/24 Mitch Garcia MD [address] [facility] [place] [address] Physician Hematology/Oncology 09/23/23 Hilda Templeton PA-C [address] [place] [address] [place] [address] Physician Clerk Carrier Hematology/Oncology 09/23/23 Deepika Garcia LSW Guard Range 09/24/[address] [place] [address] [place] [address] Registered Dietitian Nutrition 10/22/23 Nia Snider, RN Specialty Make Ready Mechanic Hematology/Oncology 04/22/24 documented as of this encounter
--- OUTSIDE RECORDS SUMMARY | 2025-05-27 08:41 | XMS_ITS | Encounter Summary ---
Author Organization [facility] Address [address] [place] [address] Care Team Providers Care Director Of Coding Name Role Phone Janet Dillard DO Unavailable [phone] Unallocated, Noms Provider Primary Care Provi gaurang Janet Dillard DO Unavailable [phone] Encounter Details Date Type Department Care Team (Late st Contact Info) Description 11/08/2023 Orders Only [facility] [address] [facility] [place] [address] Shaikh Walker MD [address] [facility] [place] [address] Social History Tobacco Use Types Packs/Day Years [...] * SCANNED LABS (11/08/2023 10:28 AM EDT) Shaikh Aaron [facility] CHG PERFORMABLES Final Resu lt documented in this encounter Visit Diagnoses Not on filedocumented in this encounter Care Teams Director Of Coding Relationship Specialty Start Date End Date Janet Dillard DO [address] [facility] [address] [place] [id number] PCP - ACO Reach 01/17/23 10/01/24 Unallocated, Noms Provider, [address] [place] [address] PCP - General 04/03/23 Janet Dillard DO [address] [facility] [address] [place] [address] PCP - ACO Reach 10/09/24 11/26/24 documented as of this encounter
--- OUTSIDE RECORDS SUMMARY | 2025-05-27 08:41 | XMS_ITS | Encounter Summary ---
Author Organization [facility] Address [address] [place] [address] Care Team Providers Care Funeral Car Driver Name Role Phone Chris Amanda Primary Care Provider [phone] Janet Dillard DO Unavailable UnavailSunny Coates MD Primary Care Provider [phone] Yvonne Baumann RN Unavailable [phone] Mitch Garcia MD Unavailable [phone] Hilda TempletonC Unavailable [phone] Deepika Garcia Unavailable Unavailable Nona Lomax RD Unavailable [phone] Nia Snider RN Unavailable Unavailable Source Comments In the event this information is protected by the Federal Confidentiality of Alcohol and Drug AbusePatient Records regulations: The Federal rules restrict any use of the information to criminally investigate or prosecute any alcohol or drug abuse patient.[facility] Encounter Details Date Type Department Care Team (Late st Contact Info) Description 06/14/2022 Patient Msg Orthopaedics [address] [place] [address] Micah Deal DO [address] [place] [address] Request an Appointment Social History Tobacco Use [...] N ot on file 03/23/2022 Data from: https://www.neighborhoodatlas.medicine.[facility].edu/. Last address used for calculation Armando [...] AM EDT Specialty Pharmacy [facility] [address]100 [place] [address] Pharmacist, [facility]ty[facility] [address] [place] [address] [place] [id number] Refill - Kisqali [28DS] 06/08/2025 9:00 AM EDT Office Visit Rheumatology 5700 [facility] [place], [place] [phone] Immanuel Oliveros APRN.NETWORKING ENGINEER [address] [place] [id number] RA 06/10/2025 1:30 PM EDT Appointment Procedures [address] [place] [address] Debbie Gunn MD [address] [facility] [place] [address] 07/07/2025 9:00 AM EST Infusion Center Hematology/Oncolo gy [address] [place] [address] lab 07/14/2025 9:30 AM EST [facility] Hematology [address] [place] [address] Mitch Garcia MD [address] [place] [address] Schedule labs prior to Virtual visit with DR Garcia 07/15/2025 9:00 AM EST Infusion Center Hematology/Oncolo gy [address] [place] [address] Prolia injection day after RADHA virtual visit per staff message 08/23/2025 10:00 AM EST Office Visit Kidney Medicine [address] [place] [address] Shante Carroll APRN.NETWORKING ENGINEER [address] [facility] [place] [address] 6 month follow up documented as of this encounter Visit Diagnoses Not on filedocumented in this encounter Care Teams Funeral Car Driver Relationship Specialty Start Date End Date Chris Amanda PCP - General 01/28/07 08/21/23 Sunny Jenkins MD PCP - General Internal Medicine 08/22/23 Janet Dillard DO Referring Family Medicine 07/14/21 Yvonne Baumann RN [address] [place] [address] [place] [address] Specialty Work Manager Hematology/Oncology 09/23/23 04/21/24 Mitch Garcia MD [address] [place] [address] [place] [address] Physician Hematology/Oncology 09/23/23 Hilda Templeton PALeonelC [address] [place] [address] [place] [address] Physician Farm Equipment Operator Hematology/Oncology 09/23/23 Deepika Garcia LSW Job Placement Specialist 09/24/[address] [place] [address] [place] [address] Registered Dietitian Nutrition 10/22/23 Nia Snider, MALORIE Specialty Work Manager Hematology/Oncology 04/22/24 documented as of this encounter
--- OUTSIDE RECORDS SUMMARY | 2025-05-27 08:42 | XMS_ITS | Encounter Summary ---
Author Organization [facility] Address [address] [place] [address] Care Team Providers Care Spacer Type Bar And Segment Name Role Phone Chris Amanda Primary Care Provider [phone] Janet Dillard DO Unavailable UnavailSunny Caotes MD Primary Care Provider [phone] Yvonne Baumann RN Unavailable [phone] Mitch Garcia MD Unavailable [phone] Hilda Templeton-C Unavailable [phone] Deepika Garcia Unavailable Unavailable Nona Lomax RD Unavailable [phone] Nia Snider RN Unavailable Unavailable Source Comments In the event this information is protected by the Federal Confidentiality of Alcohol and Drug AbusePatient Records regulations: The Federal rules restrict any use of the information to criminally investigate or prosecute any alcohol or drug abuse patient.[facility] Encounter Details Date Type Department Care Team (Late st Contact Info) Description 07/16/2016 Abstract [facility] 9[address] [place] [address] Smith Perez MD [address] [place] [address] Social History Tobacco Use Types Packs/Day Years [...] EDT Specialty Pharmacy [facility] [address] [place], [place] [address]-b-100 [place] [address] Pharmacist, [facility]ty[facility] [address] [place] [address] [place] [address] Refill - Kisqali [28DS] 06/08/2025 9:00 AM EDT Office Visit Rheumatology 5700 [place] [address] Immanuel Oliveros APRN.PHYSICAL BIOCHEMIST 5700 [place] [address] RA 06/10/2025 1:30 PM EDT Appointment Procedures [address] [place] [address] Debbie Gunn MD [address] [facility] [address] [place], [place] [address]35 07/07/2025 9:00 AM EST Infusion Center Hematology/Oncolo gy [address] [facility] [place] [address] lab 07/14/2025 9:30 AM EST [facility] Hematology [address] [place] [address] Mitch Garcia MD 417 [place] [address] Schedule labs prior to Virtual visit with DR Garcia 07/15/2025 9:00 AM EST Infusion Center Hematology/Oncolo gy [address] [facility] [place] [address] Prolia injection day after RADHA virtual visit per staff message 08/23/2025 10:00 AM EST Office Visit Kidney Medicine [address] [facility] [place] [address] Shante Carroll APRN.PHYSICAL BIOCHEMIST [address] [facility] [place] [address] 6 month follow up documented as of this encounter Visit Diagnoses Not on filedocumented in this encounter Additional Health Concerns Infection Onset Date Last Indicated Resolved Time COVID-19 Rule-Out 03/14/2022 03/14/2022 03/14/2022 4:49 PM EDT documented as of this encounter Care Teams Spacer Type Bar And Segment Relationship Specialty Start Date End Date Chris Amanda PCP - General 01/28/07 08/21/23 Sunny Jenkins MD PCP - General Internal Medicine 08/22/23 Janet Dillard DO Referring Family Medicine 07/14/21 Yvonne Baumann RN [address] [facility] [place] [address] Specialty Financial Services Auditor Hematology/Oncology 09/23/23 04/21/24 Mitch Garcia MD [address] [place] [address] [place] [address] Physician Hematology/Oncology 09/23/23 Hilda Templeton, PALeonelC [address] [facility] [place] [address] Physician Central Service Tech Hematology/Oncology 09/23/23 Deepika Garcia LSW Associate Professor Of Psychology 09/24/[address] [place] [address] [place] [address] Registered Dietitian Nutrition 10/22/23 Nia Snider, RN Specialty Financial Services Auditor Hematology/Oncology 04/22/24 documented as of this encounter
--- OUTSIDE RECORDS SUMMARY | 2025-05-27 08:42 | XMS_ITS | Encounter Summary ---
Author Organization [facility] Address [address] [place] [address] Care Team Providers Care Bakery Manager Name Role Phone aJnet Dillard DO Unavailable Unavailabl Sunny Stone MD Primary Care Provider [phone] Mitch Garcia MD Unavailable [phone] Deepika Garcia Unavailable Unavailable Nona Lomax RD Unavailable [phone] Nia Snider RN Unavailable Unavailable Source Comments In the event this information is protected by the Federal Confidentiality of Alcohol and Drug AbusePatient Records regulations: The Federal rules restrict any use of the information to criminally investigate or prosecute any alcohol or drug abuse patient.[facility] Encounter Details Date Type Department Care Team (Late st Contact Info) Description 03/19/2025 Patient Msg Pre Anesthesia [address] [place] [address] Hellen Matias APRN.CALCINE FURNACE LOADER [address] [place] [address] Pre Op Instructions Social History Tobacco Use [...] EDT Specialty Pharmacy [facility] [address] [place], [place] [address]-b-100 [place] [address] Pharmacist, Specialtygroup [address] [place] [address] [place] [address] Refill - Kisqali [28DS] C10/20 06/08/2025 9:00 AM EDT Office Visit Rheumatology 5700 [facility] Caroline [facility] [place] [place] [address] Immanuel Oliveros APRN.LICENSING MANAGER [address] [facility] [place] [address] RA 06/10/2025 1:30 PM EDT Appointment Procedures [address] [place] [address] Debbie Gunn MD [address] [place] [address] [place] [address] 07/07/2025 9:00 AM EST Infusion Center Hematology/Oncolo gy [address] [facility] [place] [address] lab 07/14/2025 9:30 AM EST [facility] Hematology [address] [place] [address] Mitch Garcia MD 417 [place] [address] Schedule labs prior to Virtual visit with DR Garcia 07/15/2025 9:00 AM EST [facility] Center Hematology/Oncolo gy [address] [facility] [place] [address] Prolia injection day after RADHA virtual visit per staff message 08/23/2025 10:00 AM EST Office Visit Kidney Medicine [address] [place] [address] Shante Carroll, BODY AND FENDER WORKER.LICENSING MANAGER [address] [facility] [place] [address] 6 month follow up documented as of this encounter Visit Diagnoses Not on filedocumented in this encounter Care Teams Bakery Manager Relationship Specialty Start Date End Date Sunny Jenkins MD PCP - General Internal Medicine 08/22/23 Janet Dillard DO Referring Family Medicine 07/14/21 Mitch Garcia MD [address] [place] [address] Physician Hematology/Oncology 09/23/23 Deepika Garcia LSW Sample Grader 09/24/[address] [facility] [place] [address] Registered Dietitian Nutrition 10/22/23 Nia Snider, MALORIE Specialty Protective Signal Repairer Hematology/Oncology 04/22/24 documented as of this encounter
--- OUTSIDE RECORDS SUMMARY | 2025-05-27 08:42 | XMS_ITS | Encounter Summary ---
Author Organization [facility] Address [address] [place] [address] Care Team Providers Care Rawhide Trimmer Name Role Phone Chris Amanda Primary Care Provider [phone] Janet Dillard DO Unavailable UnavailSunny Coates MD Primary Care Provider [phone] Yvonne Baumann RN Unavailable [phone] Mitch Garcia MD Unavailable [phone] Hilda Templeton-C Unavailable [phone] Deepika Garcia Unavailable Unavailable Nona Lomax RD Unavailable [phone] Nia Snider RN Unavailable Unavailable Source Comments In the event this information is protected by the Federal Confidentiality of Alcohol and Drug AbusePatient Records regulations: The Federal rules restrict any use of the information to criminally investigate or prosecute any alcohol or drug abuse patient.[facility] Encounter Details Date Type Department Care Team (Late st Contact Info) Description 02/02/2018 Get Medical Advice Orthopaedics [address] [id number] Chidi Garcia PA-C [address] [place] [address] RE: Visit Follow Up Question Social History [...] AM EDT Specialty Pharmacy [facility] [address] [place], [place] 490064-b-100 [place] [address] Pharmacist, [facility]tygroup [address] [place] [address] [place] [address] Refill - Kisqali [28DS] C10/20 06/08/2025 9:00 AM EDT Office Visit Rheumatology 5700 [place] [address] Immanuel Oliveros APRN.FINAL FINISHER 5700 [place] [address] RA 06/10/2025 1:30 PM EDT Appointment Procedures [address] [place] [address] Debbie Gunn MD [address] [facility] [address] [place], [place] [address] 07/07/2025 9:00 AM EST Infusion Center Hematology/Oncolo gy [address] [facility] [place] [address] lab 07/14/2025 9:30 AM EST [facility] Hematology [address] [place] [address] Mitch Garcia MD 417 [place] [address] Schedule labs prior to Virtual visit with DR Garcia 07/15/2025 9:00 AM EST Infusion Center Hematology/Oncolo gy [address] [place] [address] [place] [address] Prolia injection day after RADHA virtual visit per staff message 08/23/2025 10:00 AM EST Office Visit Kidney Medicine [address] [facility] [address] Shante Carroll, COLLAR STITCHER.FINAL FINISHER [address] [facility] [place] [address] 6 month follow up documented as of this encounter Visit Diagnoses Not on filedocumented in this encounter Additional Health Concerns Infection Onset Date Last Indicated Resolved Time COVID-19 Rule-Out 03/14/2022 03/14/2022 03/14/2022 4:49 PM EDT documented as of this encounter Care Teams Rawhide Trimmer Relationship Specialty Start Date End Date Chris Amanda PCP - General 01/28/07 08/21/23 Sunny Jenkins MD PCP - General Internal Medicine 08/22/23 Janet Dillard DO Referring Family Medicine 07/14/21 Yvonne Baumann, RN [address] [place] [address] [place] [address] Specialty Refractory Specialist Hematology/Oncology 09/23/23 04/21/24 Mitch Garcia MD [address] [place] [address] Physician Hematology/Oncology 09/23/23 Hilda Templeton, PA-C [address] [place] [address] [place] [address] Physician Commercial Fisherman Hematology/Oncology 09/23/23 Deepika Garcia LSW Spanish Medical Interpreter 09/24/[address] [place] [address] [place] [address] Registered Dietitian Nutrition 10/22/23 Nia Snider, MALORIE Specialty Refractory Specialist Hematology/Oncology 04/22/24 documented as of this encounter
--- OUTSIDE RECORDS SUMMARY | 2025-05-27 08:42 | XMS_ITS | Encounter Summary ---
Author Organization [facility] Address [address] [place] [address] Care Team Providers Care Installment Agent Name Role Phone Janet Dillard DO Unavailable Unavailabl Sunny Stone MD Primary Care Provider [phone] Mitch Garcia MD Unavailable [phone] Deepika Garcia Unavailable Unavailable Nona Lomax RD Unavailable [phone] Nia Snider RN Unavailable Unavailable Source Comments In the event this information is protected by the Federal Confidentiality of Alcohol and Drug AbusePatient Records regulations: The Federal rules restrict any use of the information to criminally investigate or prosecute any alcohol or drug abuse patient.[facility] Encounter Details Date Type Department Care Team (Late st Contact Info) Description 03/16/2025 Patient Msg Gastroenterology [address] [place] [address] Provider, [facility] EGD Prep Instructions [...] is lower risk 9 01/29/2023 Data from: https://www.neighborhoodatlas.medicine.[facility].edu/. Last address [...] AM EDT Specialty Pharmacy [facility] [address] [place] [address]-b-100 [place] [address] Pharmacist, Specialtygroup [address] [place] [address] Refill - Kisqali [28DS] C10/20 06/08/2025 9:00 AM EDT Office Visit Rheumatology 5700 [facility] [place] [address] Immanuel Oliveros APRN.PARALLEL COMPUTING SOFTWARE ENGINEER 5700 [facility] [place] [address] RA 06/10/2025 1:30 PM EDT Appointment Procedures [address] [place] [address] Debbie Gunn MD [address] [place] [address] [address] [place], [place] [address] 07/07/2025 9:00 AM EST Infusion Center Hematology/Oncolo gy [address] [place] [address] lab 07/14/2025 9:30 AM EST [facility] Hematology [address] [place] [address] iMtch Garcia MD [address] [place] [address] Schedule labs prior to Virtual visit with DR Garcia 07/15/2025 9:00 AM EST [facility] Center Hematology/Oncolo gy [address] [place] [address] Prolia injection day after RADHA virtual visit per staff message 08/23/2025 10:00 AM EST Office Visit Kidney Medicine [address] [place] [address] Shante Carroll APRN.PARALLEL COMPUTING SOFTWARE ENGINEER [address] [facility] [place] [address] 6 month follow up documented as of this encounter Visit Diagnoses Not on filedocumented in this encounter Care Teams Installment Agent Relationship Specialty Start Date End Date Sunny Jenkins MD PCP - General Internal Medicine 08/22/23 Janet Dillard DO Referring Family Medicine 07/14/21 Mitch Garcia MD [address] [place] [address] Physician Hematology/Oncology 09/23/23 Deepika Garcia LSW Business Sales Consultant 09/24/[address] [place] [address] [place] [address] Registered Dietitian Nutrition 10/22/23 Nia Snider, RN Specialty Sales Representative Education Courses Hematology/Oncology 04/22/24 documented as of this encounter
--- OUTSIDE RECORDS SUMMARY | 2025-05-27 08:42 | XMS_ITS ---
Author Organization [facility] Address [address] [place] [address] Care Team Providers Care Inspector And Sorter Name Role Phone Janet Dillard DO Unavailable UnavailSunny Coates MD Primary Care Provider [phone] Mitch Garcia MD Unavailable [phone] Deepika Garcia LAP GRINDER Unavailable Unavailable Nona Lomax RD Unavailable [phone] Nia Snider RN Unavailable Unavailable Active Problems [...] chronic kidney disease 12/24/2023 Assessment & Plan (05/24/2025 8:05 AM EDT): Images from the original note were not [...] 9.3 EGFR >=60 mL/min/1.73m 38 46 31 Assessment & Plan (03/19/2025 10:49 AM EDT): Assessment: BUN Date Value Ref Range Status 12/24/2024 18 7 - 21 mg/dL Final Currently stable Pulmonary embolism 11/05/2023 Assessment & Plan (05/24/2025 8:02 AM EDT): Assessment: PE 11/05/2023 was on Eliquis for 3 months Assessment & Plan (03/19/2025 10:48 AM EDT): Assessment: PE 11/05/2023 was on Eliquis for 3 months Assessment & Plan (05/19/2024 2:19 PM EDT): Assessment: PE 11/05/2023 was on Eliquis for 3 months Obesity, Class III, BMI >= 40 07/29/2023 Assessment & Plan (05/24/2025 8:06 AM EDT): Assessment: Body mass index is 47.01 kg/m . RA (rheumatoid arthritis) 07/26/2023 Assessment & Plan [...] from 07/23/2023:Stage IB(cT2, cN0, cM0, G1, ER+, CA+, HER2-) - Signed by Mendoza Yang MD on 07/23/2023 Pathologic stage from 08/06/2023: pT3, pN3, G2, ER+, CA+, HER2- - Signed by Mendoza Yang MD on 09/12/2023 Assessment & Plan (05/24/2025 8:06 AM EDT): Assessment: - History of Left mastectomy with chemo and radiation - Radiation L chest wall and regional nodes 03/03/2024-03/24/2024 - Following with oncology Assessment & Plan (05/18/2024 8:43 AM EDT): Assessment: History of Left mastectomy with chemo and radiation Radiation L chest wall and regional nodes 03/03/2024-03/24/2024 . Zometa q 6 months started 04/21/2024 Arimdex 04/2024 Verzinio 04/2024 Following with oncology Palpitations 02/05/2023 Assessment & Plan (05/24/2025 8:20 AM EDT): Assessment: - Stable on Metoprolol - Evaluated for possible atrial fibrillation on metoprolol - Follows with Dr. John Dc ( Cardiology) Assessment & Plan (03/19/2025 10:47 AM EDT): [...] Asymptomatic Primary hypertension 01/31/2023 Assessment & Plan (05/24/2025 8:03 AM EDT): Assessment: Stable, compliant on rx . Follows with PCP. Last 3 Encounter BP Readings: Date: BP: 05/17/2025 152/55 04/16/2025 149/63 04/13/2025 151/53 Assessment & Plan (03/19/2025 10:47 AM EDT): [...] (dyspnea on exertion) 01/31/2023 Assessment & Plan (05/24/2025 8:05 AM EDT): Assessment: at baseline Assessment & Plan (05/19/2024 2:17 PM EDT): [...] On Lasix States went to ED at [facility] [place] 01/28 ( records requested) for edema and was advised to increase Lasix and follow up with cardiology. Saw Dr. Dc 06/13- note in Epic No JVD noted Right arm weakness 03/14/2022 COPD (chronic obstructive pulmonary disease) Assessment & Plan (05/24/2025 8:18 AM EDT): Assessment: - Follows with Pulmonology - Office Visit with Dayanna Alatorre APRN.COMMERCIAL LINES SALES EXECUTIVE (05/17/2025) - Office Visit with Jules Mcintosh MD (04/16/2025) - Compliant on inhalers. - Denies any new or worsening respiratory symptoms. Denies recent exacerbations or hospitalizations. - Denies use of oxygen. - pulse ox 95% on RA Assessment & Plan (03/19/2025 10:45 AM EDT): Assessment: was told by propeller driven airplane mechanic that she had CHILD CARE SPECIALIST but another told her she did not have it Does not use use inhaler Currently stable Assessment & Plan (01/31/2023 1:08 PM EDT): Assessment: was told by propeller driven airplane mechanic that she had CHILD CARE SPECIALIST but another told her she did not have it Does use inhaler + GLOVER and orthopnea GERD (gastroesophageal reflux disease) Assessment & Plan (05/24/2025 8:05 AM EDT): Assessment: - Controlled on medication. - Advised avoidance of triggers. - Following with PCP. Assessment & Plan (03/19/2025 10:45 AM EDT): [...] (02/24/2018): Added automatically from request for surgery [id number] Primary osteoarthritis of both knees 12/23/2017 Morbid [...] of mitral valve 05/08/2007 Assessment & Plan (05/24/2025 8:04 AM EDT): Assessment: trace mitral regurgitation per 08/2023 ECHO Assessment & Plan (03/19/2025 10:45 AM EDT): [...] c ervical Mixed hyperlipidemia Assessment & Plan (05/24/2025 8:03 AM EDT): Assessment: Compliant on statin therapy, Atorvastatin (Lipitor). Encouraged lifestyle modifications. Assessment & Plan (03/19/2025 10:46 AM EDT): [...]
--- OUTSIDE RECORDS SUMMARY | 2025-05-27 08:42 | XMS_ITS | Encounter Summary ---
Author Organization [facility] Address [address] [place] [address] Care Team Providers Care Laborer Vegetable Farm Name Role Phone Janet Dillard DO Unavailable Unavailabl Sunny Stone MD Primary Care Provider [phone] Mitch Garcia MD Unavailable [phone] Deepika Garcia DESIZING MACHINE OPERATOR HEAD END Unavailable Unavailable Nona Lomax RD Unavailable [phone] Nia Snider RN Unavailable Unavailable Source Comments In the event this information is protected by the Federal Confidentiality of Alcohol and Drug AbusePatient Records regulations: The Federal rules restrict any use of the information to criminally investigate or prosecute any alcohol or drug abuse patient.[facility] Encounter Details Date Type Department Care Team (Late st Contact Info) Description 03/19/2025 Get Medical Advice Hematology [address] [facility] [place] [address] Mitch Garcia MD [address] [place] [address] Bloodwork? Social History Tobacco Use Types [...] is lower risk 9 01/29/2023 Data from: https://www.neighborhoodatlas.medicine.[facility].edu/. Last address used for calculation [...] AM EDT Specialty Pharmacy [facility] [id number] [place] [address] Pharmacist, [facility] [address] [place] [address] [place] [address] Refill - Kisqali [28DS] C10/20 06/08/2025 9:00 AM EDT Office Visit Rheumatology [address] [phone] Immanuel Oliveros APRN.BATH STEWARD/STEWARDESS [address] [facility] [place] [address] RA 06/10/2025 1:30 PM EDT Appointment Procedures [address] [place] [address] Debbie Gunn MD [address] [place] [address] 07/07/2025 9:00 AM EST Infusion Center Hematology/Oncolo gy [address] [place] [address] lab 07/14/2025 9:30 AM EST [facility] Hematology [address] [place] [address] Mitch Garcia MD [address] [place] [address] Schedule labs prior to Virtual visit with DR Garcia 07/15/2025 9:00 AM EST Infusion Center Hematology/Oncolo gy [address] [place] [place] [address] Prolia injection day after RADHA virtual visit per staff message 08/23/2025 10:00 AM EST Office Visit Kidney Medicine [address] [place] [address] Shante Carroll, STORE RECEIVING SPECIALIST.BATH STEWARD/STEWARDESS [address] [facility] [place] [address] 6 month follow up documented as of this encounter Visit Diagnoses Not on filedocumented in this encounter Care Teams Laborer Vegetable Farm Relationship Specialty Start Date End Date Sunny Jenkins MD PCP - General Internal Medicine 08/22/23 Janet Dillard DO Referring Family Medicine 07/14/21 Mitch Garcia MD [address] [place] [address] Physician Hematology/Oncology 09/23/23 Deepika Garcia LSW Licensed Nursing Assistant 09/24/[address] [place] [address] [place] [address] Registered Dietitian Nutrition 10/22/23 Nia Snider, RN Specialty Zoning Engineer Hematology/Oncology 04/22/24 documented as of this encounter
--- OUTSIDE RECORDS SUMMARY | 2025-05-27 08:43 | XMS_ITS | Encounter Summary ---
Author Organization [facility] Address [address] [place] [address] Care Team Providers Care Carton Maker Name Role Phone Janet Dillard DO Unavailable Unavailabl Sunny Stone MD Primary Care Provider [phone] Yvonne Baumann RN Unavailable [phone] Mitch Garcia MD Unavailable [phone] Hilda Templeton PA-C Unavailable [phone] Deepika Garcia Unavailable Unavailable Nona Lomax RD Unavailable [phone] Nia Snider RN Unavailable Unavailable Source Comments In the event this information is protected by the Federal Confidentiality of Alcohol and Drug AbusePatient Records regulations: The Federal rules restrict any use of the information to criminally investigate or prosecute any alcohol or drug abuse patient.[facility] Encounter Details Date Type Department Care Team (Late st Contact Info) Description 04/20/2024 Patient Msg Hematology [address] [place] [address] Provider, [facility] Social History [...] risk 9 01/29/2023 Data from: https://www.neighborhoodatlas.medicine.[facility].edu/. Last address used for calculation Armando [...] AM EDT Specialty Pharmacy [facility] [address] [place], [place] [address]24[address] [place] [address] Pharmacist, [facility] [address] [place] [address] [place] [address] Refill - Kisqali [28DS] C10/20 06/08/2025 9:00 AM EDT Office Visit Rheumatology [address] [facility] [place] [address] Immanuel Oliveros APRN.CASE RESOURCE MANAGER [address] [facility] [place] [address] RA 06/10/2025 1:30 PM EDT Appointment Procedures [address] [place] [address] Debbie Gunn MD [address] [place] [address] [place] [address] 07/07/2025 9:00 AM EST Infusion Center Hematology/Oncolo gy [address] [address] lab 07/14/2025 9:30 AM EST [facility] Hematology [address] [place] [address] Mitch Garcia MD [address] [place] [address] Schedule labs prior to Virtual visit with DR Garcia 07/15/2025 9:00 AM EST [facility] Center Hematology/Oncolo gy [address] [address] Prolia injection day after RADHA virtual visit per staff message 08/23/2025 10:00 AM EST Office Visit Kidney Medicine [address] [place] [address] Shante Carroll APRN.CASE RESOURCE MANAGER [address] [facility] [place] [address] 6 month follow up documented as of this encounter Visit Diagnoses Not on filedocumented in this encounter Care Teams Carton Maker Relationship Specialty Start Date End Date Sunny Jenkins MD PCP - General Internal Medicine 08/22/23 Janet Dillard DO Referring Family Medicine 07/14/21 Yvonne Baumann, MALORIE [address] [place] [address] [place] [address] Specialty Cleat Feeder Hematology/Oncology 09/23/23 04/21/24 Mitch Garcia MD [address] [place] [address] Physician Hematology/Oncology 09/23/23 Hilda Templeton, PA-C [address] [place] [address] [place] [address] Physician Batch Unit Treater Hematology/Oncology 09/23/23 Deepika Garcia LSW Fur Cleaner 09/24/[address] [place] [address] Registered Dietitian Nutrition 10/22/23 Nia Snider, MALORIE Specialty Cleat Feeder Hematology/Oncology 04/22/24 documented as of this encounter
--- OUTSIDE RECORDS SUMMARY | 2025-05-27 08:43 | XMS_ITS | Encounter Summary ---
Author Organization [employer] Address [id number] [address] [place] [address] Care Team Providers Care Rn Cardiology Name Role Phone Sunny Jenkins MD Primary Care Provider [phone] Encounter Details Date Type Department Care Team (Late st Contact Info) Description 11/11/2023 [facility] [address] [place] [address] [place] [address] Will Dean CMA Social History [...] Office Visit [facility] [address] [place] [phone] Sunny Jenkins MD [address] [place] [address] documented as of this encounter Visit Diagnoses Not on filedocumented in this encounter Additional Health Concerns Assessment Noted Time PHQ-9 Depression Total Score: 3 05/14/20 23 3:00 PM EDT documented as of this encounter Care Teams Rn Cardiology Relationship Specialty Start Date End Date Sunny Jenkins MD [address] [facility] [address] PCP - General Internal Medicine 04/02/23 documented as of this encounter
--- OUTSIDE RECORDS SUMMARY | 2025-05-27 08:43 | XMS_ITS | Encounter Summary ---
Author Organization [employer] Address [id number] [address] [place] [address] Care Team Providers Care Fly Maker Name Role Phone Sunny Jenkins MD Primary Care Provider [phone] Encounter Details Date Type Department Care Team (Late Contact Info) Description 11/14/2023 Orders Only [facility] [address] [place] [address] [place] [address] External, Scanning Provider Social History [...] Family Medicine [address] [facility] [place] [address] Sunny Jenkins MD [address] [place], [place] [id number] documented as of this encounter Procedures Procedure Name Priority Date/Time Associated Diagnosis Comments ECHO DOPPLER Routine 11/05/2023 1:57 PM EDT documented in this encounter Visit Diagnoses Not on filedocumented in this encounter Additional Health Concerns Assessment Noted Time PHQ-9 Depression Total Score: 3 05/14/20 3:00 PM EDT documented as of this encounter Care Teams Fly Maker Relationship Specialty Start Date End Date Sunny Jenkins MD [address] [facility] [place] [address] PCP - General Internal Medicine 04/02/23 documented as of this encounter
--- OUTSIDE RECORDS SUMMARY | 2025-05-27 08:43 | XMS_ITS | Clinical Summary ---
Author Organization [facility] Address [address] [place] [address] Care Team Providers Care Hotel Lobby Concierge Name Role Phone Janet Dillard DO Unavailable UnavailSunny Coates MD Primary Care Provider [phone] Mitch Garcia MD Unavailable [phone] Deepika Garcia WASHTUB WORKER Unavailable Unavailable Nona Lomax RD Unavailable [phone] Nia Snider RN Unavailable Unavailable Allergies Active [...] mg by mouth once daily. 0 0 8 Active MULTIVITAMIN ORAL Take 1 Dose by mouth once daily. Active potassium chloride (K-TAB) 10 mEq tablet Take 10 mEq by mouth once daily. Active furosemide (LASIX) 20 mg tablet Take 20 mg by mouth once daily. 8 Active losartan (COZAAR) 50 mg tablet Take 50 mg by mouth once daily. 1 Active esomeprazole magnesium (NEXIUM ORAL) Take 20 mg by mouth once daily. Active atorvastatin (LIPITOR) 20 mg tablet Take 1 tablet by mouth once daily. 30 tablet 2 2 Active spironolactone (ALDACTONE) 25 mg tablet Take 1 tablet by mouth every afternoon. 4 Active cholecalciferol (VITAMIN D-3) 5,000 unit tab Take 5,000 Units by mouth once daily. Active ribociclib (KISQALI) 400 mg/day (200 mg x 2) tabIndications: Invasive lobular carcinoma of breast in female (HCC) Take 2 tablets (400 mg) by mouth once daily for 21 days on, then 7 days off to complete a 28-day treatment cycle. Discard after 60 days from fill date. 42 tablet 3 05/13/2025 10:43 AM EDT 5 Active nystatin (MYCOSTATIN) cream Apply 1 application to affected area. 5 Active letrozole (FEMARA) 2.5 mg tablet TAKE 1 TABLET BY MOUTH EVERY DAY 90 tablet 1 5 Active Active Problems Problem Noted Date Diagnosed [...] from 07/23/2023:Stage IB(cT2, cN0, cM0, G1, ER+, MT+, HER2-) - Signed by Mendoza Yang MD on 07/23/2023 Pathologic stage from 08/06/2023: pT3, pN3, G2, ER+, MT+, HER2- - Signed by [...] On Lasix States went to ED at [place] 01/28 ( records requested) for edema and was advised to increase Lasix and follow up with cardiology. Saw Dr. Dc 02/05- note in Epic No JVD noted Right arm weakness 03/14/2022 COPD (chronic obstructive pulmonary disease) Assessment & Plan (05/24/2025 8:18 AM EDT): Assessment: - Follows with Pulmonology - Office Visit with Dayanna Alatorre APRN.PRACTICE CLINICIAN (05/17/2025) - Office Visit with Boom Mcintosh MD (04/16/2025) - Compliant on inhalers. - Denies any new or worsening respiratory symptoms. Denies recent exacerbations or hospitalizations. - Denies use of oxygen. 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 but another told her she did not have it Does use inhaler + GLOVER and orthopnea GERD (gastroesophageal reflux disease) 2 Assessment & Plan (05/24/2025 8:05 AM EDT): [...] (02/24/2018): Added automatically from request for surgery [id number] Primary osteoarthritis of both knees 12/23/2017 Morbid [...] RRR on exam today Hypertensive urgency 03/14/2022 07/21/2 022 AF (paroxysmal atrial fibrillation) 12/08/2021 03/14/2022 Encounters Date Type Department Care Team Description 05/25/2025 Patient Msg Gastroenterology [address] [place] [address] Debbie Gunn MD egd prep instructions 05/24/2025 8:00 AM EDT PAT Pre Anesthesia [address] [place] [address] Pulmonary embolism, other, unspecified chronicity, unspecified whether acute cor pulmonale present (HCC) (Primary Dx); Primary hypertension; Palpitations; Mixed hyperlipidemia; Disorder of mitral valve; Chronic obstructive pulmonary disease, unspecified COPD type (HCC); GLOVER (dyspnea on exertion); Gastroesophageal reflux disease, unspecified whether esophagitis present; Stage 3a chronic kidney disease (HCC); Invasive lobular carcinoma of breast in female (HCC); Obesity, Class III, BMI >= 40 05/24/2025 Patient Msg Pre Anesthesia [address] [place] [address] Kristin Schwartz APRN.PRACTICE CLINICIAN PATIENT PREOPERATIVE INSTRUCTIONS 05/17/2025 8:30 AM EDT Office Visit Pulmonary Medicine [address] [place] [address] Dayanna Alatorre APRN.NEY Dyspnea and respiratory abnormalities (Primary Dx); Hiatal hernia; Other idiopathic scoliosis, unspecified spinal region; Class 3 severe obesity with body mass index (BMI) of 45.0 to 49.9 in adult, unspecified obesity type, unspecified whether serious comorbidity present (HCC) 05/17/2025 8:15 AM EDT Procedure Pulmonary Lab [address] [place] [address] Spirometry 05/17/2025 8:00 AM EDT Procedure Pulmonary Lab [address] [place] [address] Spirometry 05/11/2025 Travel 05/10/2025 Specialty Pharmacy [facility] [address] [employer] [address] [address] Muna Fox RPh SPP Oral Oncology/hematology - Medication Refill (Kisqali) 04/29/2025 Telephone Rheumatology [address] [place] [address] Nany Bustillos MD Appointment 04/26/2025 Refill Hematology [address] [place] [address] Mitch Garcia MD Refill Request 04/26/2025 Telephone [facility] Oncology [address] [place] [address] July Bustillos MD 04/16/2025 8:00 AM EDT Office Visit Pulmonary Medicine [address] [place] [address] Boom Mcintosh MD Dyspnea and respiratory abnormalities (Primary Dx); Hiatal hernia; Other idiopathic scoliosis, unspecified spinal region; Class 3 severe obesity with body mass index (BMI) of 45.0 to 49.9 in adult, unspecified obesity type, unspecified whether serious comorbidity present (HCC) 04/16/2025 7:30 AM EDT Procedure Pulmonary Lab [address] [place] [address] Spirometry 04/14/2025 Orders Only Respiratory Carver [address] [place] [address] Boom Mcnitosh MD Dyspnea, unspecified type (Primary Dx) 04/13/2025 2:30 PM EDT Visit (SP) Office Hematology [address] [place] [address] Mitch Garcia MD Invasive lobular carcinoma of breast in female (HCC) (Primary Dx); Bilateral leg edema; Osteopenia of multiple sites 04/13/2025 Travel 04/12/2025 Specialty Pharmacy [facility] [address] [address] Muna Fox RP SPP Oral Oncology/hematology - Medication Refill (Kisqali) 04/09/2025 Refill Hematology [address] [facility] [place] [address] Mitch Garcia MD Refill Request 04/05/2025 10:00 AM EDT Infusion Center Hematology/Oncolog y [address] [place] [address] Invasive lobular carcinoma of breast in female (HCC) (Primary Dx) 04/01/2025 8:38 AM EDT - 04/01/2025 11:59 PM EDT Hospital Encounter [facility] Radiology Ultrasound [address] [place] [address] Stage 3 chronic kidney disease, unspecified whether stage 3a or 3b CKD (HCC) [N18.30] Discharge Disposition: Home 04/01/2025 GI Preprocedure Call [facility] Surgery [address] [place] [address] Chris Timmons DO 03/30/2025 8:30 AM EDT Infusion Center Hematology/Oncolog y [address] [place] [address] Invasive lobular carcinoma of breast in female (HCC) 03/30/2025 Telephone Hematology [address] [place] [address] Mitch Garcia MD Orders (THAT SPECIAL WOMAN (Mastectomy Supplies) ) 03/30/2025 Telephone Hematology/Oncolog y [address] [place] [address] Perla Salazar RN Orders 03/26/2025 Telephone Hematology [address] [place] [address] Mitch Garcia MD permision for fitting/DME 03/19/2025 10:30 AM EDT PAT Pre Anesthesia [address] [place] [address] Pre-op evaluation (Primary Dx); Primary hypertension; Chronic [...] mitral valve 03/19/2025 Get Medical Advice Hematology [address] [place] [address] Mitch Garcia MD Bloodwork? 03/19/2025 Patient Msg Pre Anesthesia [address] [place] [address] Hellen Matias APRN.QUOTATION CLERK Pre Op Instructions 03/17/2025 Travel 03/16/2025 Patient Msg Gastroenterology [address] [place] [address] Provider, [facility] EGD Prep Instructions 03/15/2025 Specialty Pharmacy [facility] [address] [place] [address] Muna Fox [facility] SPP Oral Oncology/hematology - Medication Refill (Kisqali ) 03/05/2025 11:30 AM EDT Office Visit Plastic Surgery [address] [facility] [place] [address] Andres Man MD Inclusion cyst (Primary Dx) 03/04/2025 Telephone Plastic Surgery [address] [place] [address] Andres Man MD Reschedule Post-op from Last 3 Months Immunizations Immunization Administration [...] slept in a long-term (including now)? No 07/30/2023 AUDIT-C Answer Date [...] is lower risk 9 01/29/2023 Data from: https://www.neighborhoodatlas.medicine.[facility].edu/. Last address used for calculation Armando Mayen 01/29/2023 Comments No Sex and Gender Information Value Date Recorded Sex Assigned at Female 08/14/2024 10:40 AM EST Legal Sex Female 8:08 AM EST Gender Identity Not on file Sexual Orientation Straight 08/14/2024 10 :40 AM EST Last Filed Vital Signs Vital Sign Reading Time Taken Comments Blood Pressure 152/55 05/17/2025 8:21 AM EDT Pulse 96 05/24/2025 7:56 AM EDT Temperature 36.4 C (97.6 F) 04/13/2025 2:43 PM EDT Respiratory Rate 16 05/24/2025 7:56 AM EDT Oxygen Saturation 95% 05/24/2025 7:56 AM EDT Inhaled Oxygen Concentration - - Weight 116.6 kg (257 lb) 05/24/2025 7:56 AM EDT Height 157.5 cm (5' 2 ) 05/24/2025 7:56 AM EDT Body Mass Index 47.01 05/24/2025 7:56 AM EDT Plan of Treatment Upcoming Encounters Date Type Department Care Team (Late st Contact Info) Description 06/07/2025 7:30 AM EDT Specialty Pharmacy [facility] [address] [place], [place] [id number] [place], [place] [id number] Pharmacist, [facility] [address] [place] [address] [place] [address] Refill - Kisqali [28DS] C10/20 06/08/2025 9:00 AM EDT Office Visit Rheumatology [address] [place] [address] Immanuel Oliveros APRN.PRACTICE CLINICIAN [address] [facility] [address] [place] [address] RA 06/10/2025 1:30 PM EDT Appointment Procedures [address] [place] [address] Debbie Gunn MD [address] [place] [address] 07/07/2025 9:00 AM EST Infusion Center Hematology/Oncolo gy [address] [place] [address] lab 07/14/2025 9:30 AM EST [facility] Hematology [address] [place] [address] Mitch Garcia MD [address] [place] [address] Schedule labs prior to Virtual visit with DR Garcia 07/15/2025 9:00 AM EST Infusion Center Hematology/Oncolo gy [address] [facility] [place] [place] [address] Prolia injection day after RADHA virtual visit per staff message 08/23/2025 10:00 AM EST Office Visit Kidney Medicine [address] [place] [address] Shante Carroll, CORDUROY CUTTING SUPERVISOR.PRACTICE CLINICIAN [address] [facility] [place] [address] 6 month follow up Health Maintenance Due Date Last Done Comments [...] Completed 01/21/2024 Medical Devices Implanted Type Area Industrial Chemicals Supervisor Device Identifier Shelf Expiration Date Model / Serial / Lot Cement Simplex P Bone Radiopaque Full Dose - [id number] Implanted:Qty : 1 on 03/31/2018 at [facility] Cement / Putty Right: Bone - Knee ANTONI 08/25/2020 [id number] / / [id number] Cement Simplex P Bone Radiopaque Full Dose - [id number] Implanted:Qty : 2 on 03/31/2018 at [facility] Cement / Putty Left: Bone - Knee ANTONI 08/25/2020 [id number] / / [id number] Cement Simplex P Bone Radiopaque Full Dose - [id number] Implanted:Qty : 1 on 03/31/2018 at [facility] Cement / Putty Right: Bone - Knee ANTONI 08/25/2020 [id number] / / [id number] Cca0t0.165 [facility] [employer] - [id number] Implanted:Qty : 1 on 06/02/2024 by Johanne Shepherd MD at [facility] Intraocular Lens Left: Eye [facility] 11/27/2026 CCA0T0.165 / [id number] / Cca0t0.130 [facility] [employer] - [id number] Implanted:Qty : 1 on 06/17/2024 at [facility] Intraocular Lens Right: Eye [facility] 11/10/2026 CCA0T0.130 / [id number] / Stem Triathlon 12mm Cocr 50mm Femoral Cemented Total Stabilized Knee - [id number] Implanted:Qty : 1 on 03/31/2018 at [facility] Joint - Knee Right: Bone - Knee [facility] 03/02/2023 [id number] / / [id number] Insert Triathlon 4 X3 9mm Tibial Posterior Stabilize Knee - [id number] Implanted:Qty : 1 on 03/31/2018 at [facility] Joint - Knee Right: Bone - Knee [facility] 09/04/2022 [id number] / / [id number] Component Triathlon 33mm X3 9mm Patellar Symmetric Knee Superior - [id number] Implanted:Qty : 1 on 03/31/2018 at [facility] Joint - Knee Left: Bone - Knee [facility] 10/06/2022 5550-[id number]-339 / / [id number] Insert Triathlon 4 X3 11mm Tibial Bearing Posterior Stabilize Knee - [id number] Implanted:Qty : 1 on 03/31/2018 at [facility] Joint - Knee Left: Bone - Knee [facility] 09/11/2022 [id number] / / [id number] Component Triathlon 33mm X3 9mm Patellar Symmetric Knee Superior - [id number] Implanted:Qty : 1 on 03/31/2018 at [facility] Joint - Knee Right: Bone - Knee [facility] 08/08/2022 5550-L-339 / / [id number] Component Triathlon 4 Femoral Cemented Posterior Stabilize Knee Right - [id number] Implanted:Qty : 1 on 03/31/2018 at [facility] Joint - Knee Right: Bone - Knee [facility] 01/07/2023 [id number] / / [id number] Component Triathlon 4 Femoral Cemented Posterior Stabilize Knee Left - [id number] Implanted:Qty : 1 on 03/31/2018 at [facility] Joint Left: Bone - Knee [facility] 12/27/2022 [id number] / / [id number] Baseplate Triathlon 4 [place] Cocr Tibial Total Stabilize Cemented Knee - [id number] Implanted:Qty : 1 on 03/31/2018 at [facility] Plate Left: Bone - Knee [facility] 02/19/2023 [id number] / / [id number] Baseplate Triathlon 4 [place] Cocr Tibial Total Stabilize Cemented Knee - [id number] Implanted:Qty : 1 on 03/31/2018 at [facility] Plate Right: Bone - Knee [facility] 01/27/2023 [id number] / / [id number] Screw Lcp 6.5mm 8mm Partial Thread Stainless Steel 45mm 32mm Bone Large - [id number] Implanted:Qty : 1 on 03/31/2018 at [facility] Screw Right: Bone - Knee [employer] 217.045 / / Washer Lcp 13mm 6.6mm Stainless Steel Orthopedic 4.5-7.3mm Screw Nonsterile - [id number] Implanted:Qty : 2 on 03/31/2018 at [facility] Screw Right: Bone - Knee [employer] 219.99 / / Screw Lcp 6.5mm 8mm Full Thread Stainless Steel 35mm Bone Large Hexagonal - [id number] Implanted:Qty : 1 on 03/31/2018 at [facility] Screw Right: Bone - Knee [employer] 218.035 / / Procedures Procedure Name Priority Date/Time Associated Diagnosis Comments LUNG DIFFUSION CAPACITY (DLCO) Routine 05/17/2025 7:41 AM EDT Dyspnea and respiratory abnormalities LUNG VOLUMES Routine 05/17/2025 7:41 AM EDT Dyspnea and respiratory abnormalities SPIROMETRY WITH DILATOR IF OBSTRUCTED Routine 04/16/2025 [...] DISEASE 03/03/2025 PT ED PATIENT INFORMATION 03/03/2025 HEPATITIS C ANTIBODY IA WITH CONFIRMATION Routine 01/21/2024 1:46 PM EDT Invasive lobular carcinoma of breast in female (HCC) Elevated transaminase level COLONOSCOPY SCREENING Routine 02/11/2023 10:45 AM EDT Screening for colon cancer from Last 3 Months or Most Recently Relevant to Health Maintenance Results * LUNG DIFFUSION CAPACITY (DLCO) (05/17/2025 7:41 AM EDT) 05/17/2025 7:41 AM EDT Narrative PULMONARY FUNCTION LAB - 05/24/2025 10:16 AM EDT [place] [facility] [address] [place], [place] [address] Test Date: 2025-05-17 Pat Name: YUE BARTONKARTIK Department: Room: Gender: Female Material Handler 2Nd Shift: : 1955 Requested By: Order Number: [id number] Reading MD: Arpita Rodriguez MD Interpretive Statements [...] 10:16:17 EDT by Arpita Rodriguez MD ID: [id number] Name: YUE CAPUTO Race: White Ht: 61.02 in Wt: 257.28 lbs Age: 69 Gender: Female : 1955 Dx: Dyspnea and respiratory abnormalities_ Smoking Hx: Non-smoker Doctor: BOOM MCINTOSH Test Date: 05/17/2025 Site: [facility] Tech: Faviola Kent PRE-BRONCH POST-BRONCH Mookie [...] Final Resul t PULMONARY FUNCTION LAB [address] [facility] [place] [facility] [place] [address] * LUNG VOLUMES (05/17/2025 7:41 AM EDT) [...] FUNCTION LAB - 05/24/2025 10:16 AM EDT [facility] [address] [facility] [place] [address] Test Date: 2025-05-17 Pat Name: YUE CAPUTO Department: Room: Gender: Female Material Handler 2Nd Shift: : 1955 Requested By: Order Number: [id number] Reading MD: Arpita Rodriguez MD Interpretive Statements [...] 10:16:17 EDT by Arpita Rodriguez MD ID: [id number] Name: YUE CAPUTO Race: White Ht: 61.02 in Wt: 257.28 lbs Age: 69 Gender: Female : 1955 Dx: Dyspnea and respiratory abnormalities_ Smoking Hx: Non-smoker Doctor: BOOM MCINTOSH Test Date: 05/17/2025 Site: [facility] Tech: Faviola Kent PRE-BRONCH POST-BRONCH Mookie [...] Final Resul t PULMONARY FUNCTION LAB [address] [facility] [place] [id number] * SPIROMETRY WITH DILATOR IF OBSTRUCTED (04/16/2025 [...] ULN (L/S) 1.09 L/S PULMONARY FUNCTION LAB PDI97-97% PRE (L/S) 1.53 L/S PULMONARY FUNCTION LAB VPL59-49% PREDICTED (L/S) 1.74 L/S PULMONARY FUNCTION LAB VLC24-13% LLN (L/S) 0.80 L/S PULMONARY FUNCTION LAB PEF PRE (L/S) 4.16 L/S PULMON SHANICE FUNCTION LAB PEF LLN (L/S) 3.61 L/S PULMON [facility] FUNCTION LAB PEF ULN (L/S) 6.72 L/S PULMON SHANICE FUNCTION LAB FET PRE (S) 6.41 S PULMONAR Y FUNCTION LAB 04/16/2025 7:25 AM EDT Narrative PULMONARY FUNCTION LAB - 04/16/2025 9:54 AM EDT [place] [facility] [address] [facility] [address] [place], [place] [address] Test Date: 2025-04-16 Pat Name: YUE PATIOT Department: Room: Gender: Female Material Handler 2Nd Shift: : 1955 Requested By: Melonie Paz MD Order Number: [id number] Reading MD: Melonie Paz MD Interpretive Statements Current ATS/ERS acceptability and repeatability standards for spirometry met. Start of test and EOFE criteria met. //FP IMPRESSION: Spirometry is normal. Electronically Signed On 04-16-2025 09:54:21 EDT by Melonie Paz MD ID: [id number] Name: YUE CAPUTO Race: White Ht: 61.02 in Wt: 260.59 lbs Age: 69 Gender: Female : 1955 Dx: Dyspnea and respiratory abnormalities_ Smoking Hx: Non-smoker Doctor: BOOM MCINTOSH Test Date: 04/16/2025 Site: [facility] Tech: Leonard Cornejo PRE-BRONCH POST-BRONCH Mookie LLN Pred ULN %Pred ZScore Mookie %Pred %Chg ZScore SPIROMETRY FVC 2.06 1.71 2.42 3.15 84 -0.84 FEV1 1.62 1.33 1.91 2.45 84 -0.84 FEV1/FVC 0.79 0.66 0.79 0.90 98 -0.12 FEFMax 4.16 3.61 5.17 6.72 80 -1.06 FEF50 2.52 1.24 2.85 4.46 88 -0.34 FIF50 2.48 FEF50/FIF50 1.01 90-100 FIVC 1.98 OJK98-68 1.53 0.80 1.74 3.07 87 -0.32 ExpiredTime 6.41 TimeToFEFMax 0.13 LESLEY 0.10 VolExtrap% 5 Comments: Current ATS/ERS acceptability and repeatability standards for spirometry met. Start of test and EOFE criteria met. //FP us Boom Mcintosh MD SCHEDULED PROCEDURES Final Resul t PULMONARY FUNCTION LAB [address] [place] [address] * US KIDNEY/BLADDER (04/01/2025 9:29 AM EDT) Anatomical Region Laterality Modality Abdomen Ultrasound 04/01/2025 9:29 AM EDT Impressions 04/04/2025 12:20 PM EDT IMPRESSION: No hydronephrosis. Printer Floor Covering Assistant: BEA Transcribe Date/Time: Apr 04 2025 12:16P Dictated by : LINDA MARCIAL MD This examination was interpreted and the report reviewed and electronically signed by: LINDA MARCIAL MD on Apr 04 2025 12:18PM EST Narrative 04/04/2025 12:20 PM EDT * * *Final Report* * * DATE OF EXAM: Apr 01 2025 9:29AM [facility] 1055 - US KIDNEY/BLADDER / PROCEDURE REASON: [...] Bladder: Normal sonographic appearance. Procedure Note Provider, [facility] - 04/04/2025 * * *Final Report* * * DATE OF EXAM: Apr 01 2025 9:29AM [facility] 1055 - US KIDNEY/BLADDER / PROCEDURE REASON: [...] Normal sonographic appearance. IMPRESSION IMPRESSION: No hydronephrosis. Printer Floor Covering Assistant: PSCB Transcribe Date/Time: Apr 04 2025 12:16P Dictated by : LINDA MARCIAL MD This examination was interpreted and the report reviewed and electronically signed by: LINDA MARCIAL MD on Apr 04 2025 12:18PM EST us Yue Negro DO US-PAMA Final Result * (ABNORMAL) COMPREHENSIVE METABOLIC PANEL (03/30/2025 9:12 AM EDT) Protein, Total 6.9 6.3 - 8.0 g/dL 03/30/2025 10:31 AM EDT [facility] Albumin 4.0 3.9 - 4.9 g/dL 03/30/2025 10:31 AM EDT [facility] Calcium, Total 9.5 8.5 - 10.2 mg/dL 03/30/2025 10:31 AM EDT [facility] Bilirubin, Total 0.6 0.2 - 1.3 mg/dL 03/30/2025 10:31 AM EDT [facility] Alkaline Phosphatase 105 34 - 123 U/L 03/30/2025 10:31 AM EDT [facility] AST 15 13 - 35 U/L 03/30/2025 10:31 AM EDT [facility] ALT 19 7 - 38 U/L 03/30/2025 10:31 AM EDT [facility] Glucose 140(H) 74 - 99 mg/dL 03/30/2025 10:31 AM [facility] Comment: The [place] Diabetes Association (ADA) provides guidance for cutoff [...] Standards of Medical Care in Diabetes 2016, [place] Diabetes Association. Diabetes Care. 2016.39(Suppl 1). BUN 18 7 - 21 mg/dL 03/30/2025 10:31 AM [facility] Creatinine 1.48(H) 0.58 - 0.96 mg/dL 03/30/2025 10:31 AM [facility] Sodium 137 136 - 144 mmol/L 03/30/2025 10:31 AM [facility] Potassium 4.5 3.7 - 5.1 mmol/L 03/30/2025 10:31 AM [facility] Chloride 101 98 - 107 mmol/L 03/30/2025 10:31 AM [facility] CO2 25 22 - 30 mmol/L 03/30/2025 10:31 AM [facility] Anion Gap 11 8 - 15 mmol/L 03/30/2025 10:31 AM [facility] Estimated Glomerular Filtration Rate 38(L) >=60 mL/min/1. 73m 03/30/2025 10:31 AM [facility] Comment:Estimated Glomerular Filtration Rate [...] us Mitch Garcia MD LABORATORY Final Result [facility] [address] [place] [address] * (ABNORMAL) COMPLETE BLOOD COUNT AND DIFFERENTIAL (03/30/2025 9:11 AM EDT) WBC 3.64(L) 3.70 - 11.00 k/uL 03/30/2025 9:33 AM EDT [facility] RBC 3.67(L) 3.90 - 5.20 m/uL 03/30/2025 9:33 AM EDT [facility] Hemoglobin 12.8 11.5 - 15.5 g/dL 03/30/2025 9:33 AM EDT [facility] Hematocrit 38.1 36.0 - 46.0 % 03/30/2025 9:33 AM EDT [facility] MCV 103.8(H) 80.0 - 100.0 fL 03/30/2025 9:33 AM EDT [facility] MCH 34.9(H) 26.0 - 34.0 pg 03/30/2025 9:33 AM EDT [facility] MCHC 33.6 30.5 - 36.0 g/dL 03/30/2025 9:33 AM EDT [facility] RDW-CV 14.6 11.5 - 15.0 % 03/30/2025 9:33 AM EDT [facility] Platelet Count 346 150 - 400 k/uL 03/30/2025 9:33 AM EDT [facility] MPV 9.0 9.0 - 12.7 fL 03/30[facility]2025 [facility] Neutrophils % 71.1 % 03/30/2025 9:33 AM EDT [facility] Abs Neut 2.59 1.45 - 7.50 k/uL 03/30/2025 9:33 AM EDT [facility] Lymphocytes % 21.2 % 03/30/2025 9:33 AM EDT [facility] Abs Lymph 0.77(L) 1.00 - 4.00 k/uL 03/30/2025 9:33 AM EDT [facility] Monocytes % 4.9 % 03/30/2025 9:33 AM EDT [facility] Abs [place] 0.18 <0.87 k/uL 03/30/2025 9:33 AM EDT [facility] Eosinophils % 1.4 % 03/30/2025 9:33 AM EDT [facility] Abs Eosin 0.05 <0.46 k/uL 03/30/2025 9:33 AM EDT [facility] Basophils % 1.1 % 03/30/2025 9:33 AM EDT [facility] LAB Abs Baso 0.04 <0.11 k/uL 03/30/2025 9:33 AM [facility] Immature Granulocytes % 0.3 % [facility] Immature Gran <0.03 <0.10 k/uL 03/30/2025 9:33 AM EDT [facility] NRBC 0.0 /100 WBC 03/30/2025 9:33 AM [facility] [facility] Absolute nRBC <0.01 <0.01 k/uL 03/30/2025 9:33 AM [facility] Diff Type Auto 03/30/2025 9:33 AM [facility] Blood BLOOD SPECIMEN / Unknown Venipuncture / Unknown 03/30/2025 9:11 AM EDT 03/30/2025 9:12 AM EDT us Mitch Garcia MD LABORATORY Final Result [facility] [address] [place] [address] * PT ED PATIENT INFORMATION (03/03/2025) 03/03/2025 Narrative ANGELITA - 04/03/2025 Provider FAMILIA your patient YUE CAPUTO has not started their Angelita program, time has . Angelita program: PATIENT SAFETY INSTRUCTIONS FOR HEALTHCARE SETTINGS Chris Timmons DO ANGELITA Final Result Performing Organization Address City/[facility]/ZIP Co de Phone Number ANGELITA * PT ED DIGESTIVE DISEASE (03/03/2025) 03/03/2025 Narrative ANGELITA - 04/03/2025 Provider FAMILIA your patient YUE CAPUTO has not started their Angelita program, time has . Angelita program: UPPER GI ENDOSCOPY (EGD) Chris Timmons DO ANGELITA Final Result ANGELITA * HEPATITIS C ANTIBODY IA WITH CONFIRMATION (01/21/2024 1:46 PM EDT) Hep C Antibody IA Negative Negative 01/22/2024 2:21 PM EDT [facility] Comment:The result suggests no evidence of active infection with Hepatitis C virus. Should recent infection be suspected, repeat testing may be considered 4-6 weeks after this draw. Blood BLOOD SPECIMEN / Unknown Port - Continuous Access Dev. / Unknown 01/21/2024 1:46 PM EDT 01/21/2024 1:48 PM EDT us Hilda Templeton PA-C LABORATORY Final Result [facility] [address] [address], [place] * COLONOSCOPY SCREENING (02/11/2023 10:45 AM EDT) Anatomical Region Laterality Modality Other 02/11/2023 10:4 5 AM EDT Narrative 02/11/2023 11:26 AM EDT [facility] Gastrointestinal Endoscopy Patient Name: Yue Caputo Procedure Date: 02/11/2023 10:45 AM Date of : 1955 Admit Type: Outpatient Age: 67 Room: [place] [address] Gender: Female Note Status: Finalized Attending MD: [...] or abscess without bleeding CPT copyright 2020 [employer]. All rights reserved. The codes documented in this report are preliminary and upon exhibit display representative review may be revised to meet current [...] Estimated blood loss: none. us Nell Pack CORDUROY CUTTING SUPERVISOR.PRACTICE CLINICIAN DIGESTIVE DISEASE Final Res ult from Last 3 Months or Most Recently Relevant to Health Maintenance Insurance MEDICARE [facility] Care Teams Hotel Lobby Concierge Relationship Specialty Start Date End Date Sunny Jenkins MD PCP - General Internal Medicine 08/22/23 Janet Dillard DO Referring Family Medicine 07/14/21 Mitch Garcia MD [address] [place] [address] [place] [address] Physician Hematology/Oncology 09/23/23 Deepika Garcia LSW Sprinkler Repair Technician 09/24/[address] [place] [address] [place] [address] Registered Dietitian Nutrition 10/22/23 Nia Snider, MALORIE Specialty Gas Engine Operator Hematology/Oncology 04/22/24
--- OUTSIDE RECORDS SUMMARY | 2025-05-27 08:43 | XMS_ITS | Encounter Summary ---
Author Organization [facility] Address [address] [place] [address] Care Team Providers Care Safety And Health Consultant Name Role Phone Janet Dillard DO Unavailable Unavailabl Sunny Stone MD Primary Care Provider Mitch Garcia MD Unavailable [phone] Deepika Garcia Unavailable Unavailable Nona Lomax RD Unavailable Nia Snider RN Unavailable Unavailable Source Comments In the event this information is protected by the Federal Confidentiality of Alcohol and Drug AbusePatient Records regulations: The Federal rules restrict any use of the information to criminally investigate or prosecute any alcohol or drug abuse patient.[facility] Reason for Visit * Reason Comments Appointment Encounter Details Date Type Department Care Team (Late st Contact Info) Description 04/29/2025 Telephone Rheumatology [address] [place] [place] [address] Nany Bustillos MD [address] [place] [place] [address] Appointment Social History Tobacco Use Types Packs/Day [...] encounter Miscellaneous Notes * Telephone Encounter - Petty Degroot - 05/07/2025 12:54 PM EDT Called and spoke with patient, scheduled patient for sooner appt with Rheum on 06/08/2025 with Immanuel Oliveros APRN.BIOMASS TECHNICIAN * Telephone Encounter - Nany Bustillos MD - 04/29/2025 11:19 AM EDT Please schedule new patient for rheumatoid arthritis referral from Mitch Garcia MD May schedule earliest [facility] rheumatology physician/J2EE CONSULTANT. Thank you! documented in this encounter Plan of Treatment Upcoming Encounters Date Type Department Care Team (Late st Contact Info) Description 06/07/2025 7:30 AM EDT Specialty [facility] [address] [place] [address] AC4[address] [place] [address] Pharmacist, [facility] [address] [place] [address] [place] [address] Refill - Kisqali [28DS] 06/08/2025 9:00 AM EDT Office Visit Rheumatology 5700 [facility] [place] [address] Immanuel Oliveros APRN.BIOMASS TECHNICIAN 5700 [facility] [place] [address] RA 06/10/2025 1:30 PM EDT Appointment Procedures [address] [place] [address] Debbie Gunn MD [address] [place] [address] [address] [place], [place] [id number] 07/07/2025 9:00 AM [facility] Infusion Center Hematology/Oncolo gy [address] [facility] [place] [address] lab 07/14/2025 9:30 AM EST [facility] Hematology [address] [place] [address] Mitch Garcia MD [address] [place] [address] Schedule labs prior to Virtual visit with DR Garcia 07/15/2025 9:00 AM [facility] Infusion Center Hematology/Oncolo gy [address] [facility] [place] [address] Prolia injection day after RADHA virtual visit per staff message 08/23/2025 10:00 AM EST Office Visit Kidney Medicine [address] [place] [address] Shante Carroll APRN.BIOMASS TECHNICIAN [address] [facility] [place] [address] 6 month follow up documented as of this encounter Visit Diagnoses Not on filedocumented in this encounter Care Teams Safety And Health Consultant Relationship Specialty Start Date End Date Sunny Jenkins MD PCP - General Internal Medicine 08/22/23 Janet Dillard DO Referring Family Medicine 07/14/21 Mitch Garcia MD [address] [facility] [place] [address] Physician Hematology/Oncology 09/23/23 Deepika Garcia LSW Rouge Miller 09/24/[address] [place] [address] [place] [address] Registered Dietitian Nutrition 10/22/23 Nia Snider, RN Specialty Diversified Crops I Farmworker Hematology/Oncology 04/22/24 documented as of this encounter
--- OUTSIDE RECORDS SUMMARY | 2025-05-27 08:43 | XMS_ITS | Encounter Summary ---
Author Organization [facility] Address [address] [place] [address] Care Team Providers Care Steffen House Supervisor Name Role Phone Janet Dillard DO Unavailable Unavailabl Sunny Stone MD Primary Care Provider [phone] Yvonne Baumann RN Unavailable [phone] Mitch Garcia MD Unavailable [phone] Hilda Templeton PA-C Unavailable [phone] Deepika Garcia Unavailable Unavailable Nona Lomax RD Unavailable [phone] Nia Snider RN Unavailable Unavailable Source Comments In the event this information is protected by the Federal Confidentiality of Alcohol and Drug AbusePatient Records regulations: The Federal rules restrict any use of the information to criminally investigate or prosecute any alcohol or drug abuse patient.[facility] Encounter Details Date Type Department Care Team (Late st Contact Info) Description 10/16/2023 Patient Msg Dermatology and Plastics [place] [address] [place] [address] Provider, [facility] APPOINTMENT Social History Tobacco Use [...] risk 9 01/29/2023 Data from: https://www.neighborhoodatlas.medicine.[facility].edu/. Last address used for calculation [...] AM EDT Specialty [facility] [address] [place] [address] AC4-b[address]100 [place] [address] Pharmacist, [facility] [address] [place] [address] [place] [address] Refill - Kisqali [28DS] C10/20 06/08/2025 9:00 AM EDT Office Visit Rheumatology 5700 [facility] [place] [address] Immanuel Oliveros APRN.FINANCIAL BUSINESS ANALYST 5700 [facility] [place] [address] RA 06/10/2025 1:30 PM EDT Appointment Procedures [address] [facility] [place] [address] Debbie Gunn MD [address] [place] [address] [place] [address] 07/07/2025 9:00 AM EST Infusion Center Hematology/Oncolo gy [address] [facility] [address] lab 07/14/2025 9:[address] [facility] Hematology [address] [place] [address] Mitch Garcia MD [address] [place] [address] Schedule labs prior to Virtual visit with DR Garcia 07/15/2025 9:[address] [facility] Hematology/Oncolo gy [address] [facility] [address] Prolia injection day after RADHA virtual visit per staff message 08/23/2025 10:00 AM EST Office Visit Kidney Medicine [address] [place] [address] Shante Carroll APRN.FINANCIAL BUSINESS ANALYST [address] [facility] [place] [address] 6 month follow up documented as of this encounter Visit Diagnoses Not on filedocumented in this encounter Care Teams Steffen House Supervisor Relationship Specialty Start Date End Date Sunny Jenkins MD PCP - General Internal Medicine 08/22/23 Janet Dillard DO Referring Family Medicine 07/14/21 Yvonne Baumann, MALORIE [address] [place] [address] [place] [address] Specialty Pulverizing And Sifting Operator Hematology/Oncology 09/23/23 04/21/24 Mitch Garcia MD [address] [place] [address] Physician Hematology/Oncology 09/23/23 Hilda Templeton, PA-C [address] [place] [address] [place] [address] [address]car Hematology/Oncology 09/23/23 Deepika Garcia LSW Supervisor Furnace Room 09/24/[address] [facility] [place] [address] Registered Dietitian Nutrition 10/22/23 Nia Snider, MALORIE Specialty Pulverizing And Sifting Operator Hematology/Oncology 04/22/24 documented as of this encounter
--- OUTSIDE RECORDS SUMMARY | 2025-05-27 08:43 | XMS_ITS | Encounter Summary ---
Author Organization [employer] [facility] tem Address [id number] [address] [place] [address] Care Team Providers Care System Administrator Name Role Phone Sunny Jenkins MD Primary Care Provider [phone] Encounter Details Date Type Department Care Team (Late st Contact Info) Description 12/11/2023 [email or web address] [address] [place] [address] Will Dean CMA Social History [...] 12/11/2023 9:04 AM EDT [facility] [employer] [facility] stating that her prescription for ibrexafungerp is too costly for her to last picker. Can something else be called in for [...] Office Visit [facility] [address] [place] [phone] Sunny Jenkins MD [address] [place] [address] documented as of this encounter Visit Diagnoses Not on filedocumented in this encounter Additional Health Concerns Assessment Noted Time PHQ-9 Depression Total Score: 3 05/14/20 23 3:00 PM EDT documented as of this encounter Care Teams System Administrator Relationship Specialty Start Date End Date Sunny Jenkins MD [address] [place] [address] PCP - General Internal Medicine 04/02/23 documented as of this encounter
--- OUTSIDE RECORDS SUMMARY | 2025-05-27 08:43 | XMS_ITS | Encounter Summary ---
Author Organization [facility] Address [address] [place] [address] Care Team Providers Care Senior Commercial Loan Officer Name Role Phone Janet Dillard DO Unavailable Unavailabl Sunny Stone MD Primary Care Provider [phone] Mitch Garcia MD Unavailable [phone] Deepika Garcia STRAWHAT BLOCKING OPERATOR Unavailable Unavailable Nona Lomax RD Unavailable [phone] Nia Snider RN Unavailable Unavailable Source Comments In the event this information is protected by the Federal Confidentiality of Alcohol and Drug AbusePatient Records regulations: The Federal rules restrict any use of the information to criminally investigate or prosecute any alcohol or drug abuse patient.[facility] Reason for Visit * Reason Comments Orders THAT SPECIAL WOMAN ( Mastectomy Supplies) Encounter Details Date Type Department Care Team (Late st Contact Info) Description 03/30/2025 Telephone [facility] [address] [facility] [place], [place] [id number] Mitch Garcia MD [address] [place] [address] Orders (THAT SPECIAL WOMAN (Mastectomy Supplies) [...] lower risk 9 01/29/2023 Data from: https://www.neighborhoodatlas.medicine.[facility].edu/. Last address used for calculation Armando [...] [employer] [address] [place] [address] Prescription sign and faxed back. Prescription sent to scanning. documented in this encounter Plan of Treatment Upcoming Encounters Date Type Department Care Team (Late st Contact Info) Description 06/07/2025 7:30 AM EDT Specialty [facility] [address] [place], [place] [address]174-b-[address] [place] [address] Pharmacist, [facility]ty[facility] [address] [place] [address] [place] [address] Refill - Kisqali [28DS] C10/20 06/08/2025 9:00 AM EDT Office Visit Rheumatology [address] [facility] [address] Immanuel Oliveros APRN.IRONMOLDER 57[address] [facility] [place] [place] [address] RA 06/10/2025 1:30 PM EDT Appointment Procedures [address] [place] [address] Debbie Gunn MD [address] [facility] [place] [address] 07/07/2025 9:00 AM [facility] Infusion Center Hematology/Oncolo gy [address] [facility] [place] [address] lab 07/14/2025 9:[address] [facility] Hematology [address] [place] [address] Mitch Garcia MD [address] [place] [address] Schedule labs prior to Virtual visit with DR Garcia 07/15/2025 9:00 AM [facility] Hematology/Oncolo gy [address] [facility] [place] [address] Prolia injection day after RADHA virtual visit per staff message 08/23/2025 10:00 AM EST Office Visit Kidney Medicine [address] [place] [address] Shante Carroll, SKI LIFT OPERATOR.IRONMOLDER [address] [facility] [place] [address] 6 month follow up documented as of this encounter Visit Diagnoses Not on filedocumented in this encounter Care Teams Senior Commercial Loan Officer Relationship Specialty Start Date End Date Sunny Jenkins MD PCP - General Internal Medicine 08/22/23 Janet Dillard DO Referring Family Medicine 07/14/21 Mitch Garcia MD [address] [facility] [place] [address] Physician Hematology/Oncology 09/23/23 Deepika Garcia LSW Food Bagging Machine Operator 09/24/[address] [place] [address] [place] [address] Registered Dietitian Nutrition 10/22/23 Nia Snider, MALORIE Specialty Professor Of Law Hematology/Oncology 04/22/24 documented as of this encounter
--- OUTSIDE RECORDS SUMMARY | 2025-05-27 08:43 | XMS_ITS | Encounter Summary ---
Author Organization [facility] Address [address] [place] [address] Care Team Providers Care Shelter Supervisor Name Role Phone Janet Dillard DO Unavailable Unavailabl Sunny Stone MD Primary Care Provider [phone] Mitch Garcia MD Unavailable [phone] Deepika Garcia Unavailable Unavailable Nona Lomax RD Unavailable [phone] Nia Snider RN Unavailable Unavailable Source Comments In the event this information is protected by the Federal Confidentiality of Alcohol and Drug AbusePatient Records regulations: The Federal rules restrict any use of the information to criminally investigate or prosecute any alcohol or drug abuse patient.[facility] Encounter Details Date Type Department Care Team (Late st Contact Info) Description 04/01/2025 GI Preprocedure Call [facility] Surgery [address] [address] [place] [address] [place] [address] Social History Tobacco Use Types [...] is lower risk 9 01/29/2023 Data from: https://www.neighborhoodatlas.medicine.[facility].edu/. Last address used for calculation [...] AM EDT Specialty Pharmacy [facility]4-b[address]100 [place] [address] Pharmacist, Specialty[facility] [address] [place] [address] [place] [address] Refill - Kisqali [28DS] C10/20 06/08/2025 9:00 AM EDT Office Visit Rheumatology 5700 [facility] [place] [id number] Immanuel Oliveros APRN.CRANKSHAFT STRAIGHTENER 5700 [facility] [place] [address] RA 06/10/2025 1:30 PM EDT Appointment Procedures [address] [facility] [place] [address] Debbie Gunn MD [address] [place] [address] [place] [address] 07/07/2025 9:00 AM EST Infusion Center Hematology/Oncolo gy [address] [facility] [place] [address] lab 07/14/2025 9:[address] [facility] Hematology [address] [place] [address] Mitch Garcia MD 417 [place] [address] Schedule labs prior to Virtual visit with DR Garcia 07/15/2025 9:00 AM EST Infusion Center Hematology/Oncolo gy [address] [facility] [place] [address] Prolia injection day after RADHA virtual visit per staff message 08/23/2025 10:00 AM EST Office Visit Kidney Medicine [address] [place] [address] Shante Carroll, SENIOR SALES EXECUTIVE.CRANKSHAFT STRAIGHTENER [address] [facility] [place] [address] 6 month follow up documented as of this encounter Visit Diagnoses Not on filedocumented in this encounter Care Teams Shelter Supervisor Relationship Specialty Start Date End Date Sunny Jenkins MD PCP - General Internal Medicine 08/22/23 Janet Dillard DO Referring Family Medicine 07/14/21 Mitch Garcia MD [address] [place] [address] Physician Hematology/Oncology 09/23/23 Deepika Garcia LSW Dairy Farm Worker 09/24/[address] [facility] [place] [address] Registered Dietitian Nutrition 10/22/23 Nia Snider, MALORIE Specialty Supervisor Ticket Sales Hematology/Oncology 04/22/24 documented as of this encounter
--- OUTSIDE RECORDS SUMMARY | 2025-05-27 08:43 | XMS_ITS | Encounter Summary ---
Author Organization [facility] Address [address] [place] [address] Care Team Providers Care Direct Mail Marketer Name Role Phone Chris Amanda Primary Care Provider [phone] Janet Dillard DO Unavailable UnavailSunny Coates MD Primary Care Provider [phone] Yvonne Baumann RN Unavailable [phone] Mitch Garcia MD Unavailable [phone] Hilda Templeton-C Unavailable [phone] Deepika Garcia Unavailable Unavailable Nona Lomax RD Unavailable [phone] Nia Snider RN Unavailable Unavailable Source Comments In the event this information is protected by the Federal Confidentiality of Alcohol and Drug AbusePatient Records regulations: The Federal rules restrict any use of the information to criminally investigate or prosecute any alcohol or drug abuse patient.[facility] Encounter Details Date Type Department Care Team (Late st Contact Info) Description 03/26/2019 Patient Msg Orthopaedics [address] [address] Sheila Trevino MD [address] [place] [phone] Appointment Cancellation Request Social History Tobacco Use [...] AM EDT Specialty [facility] [address] [place] [address] [place] [address] Pharmacist, [facility]ty[facility] [address] [facility] [place] [address] Refill - Kibrianqali [28DS] 06/08/2025 9:00 AM EDT Office Visit Rheumatology 5700 [facility] [place] [address] Immanuel Oliveros APRN.CONSTRUCTION EQUIPMENT MECHANIC HELPER 57[address] [facility] [place] [address] RA 06/10/2025 1:30 PM EDT Appointment Procedures [address] [place] [address] Debbie Gunn MD [address] [place] [address] [place], [place] [id number] 07/07/2025 9:00 AM [facility] Infusion Center Hematology/Oncolo gy [address] [facility] [place] [place] [address] lab 07/14/2025 9:30 AM [facility] Hematology [address] [place] [address] Mitch Garcia MD [address] [place] [address] Schedule labs prior to Virtual visit with DR Garcia 07/15/2025 9:00 AM [facility] Hematology/Oncolo gy [address] [facility] [place] [address] Prolia injection day after RADHA virtual visit per staff message 08/23/2025 10:00 AM EST Office Visit Kidney Medicine [address] [place] [address] Shante Carroll APRN.CONSTRUCTION EQUIPMENT MECHANIC HELPER [address] [facility] [place] [address] 6 month follow up documented as of this encounter Visit Diagnoses Not on filedocumented in this encounter Additional Health Concerns Infection Onset Date Last Indicated Resolved Time COVID-19 Rule-Out 03/14/2022 03/14/2022 03/14/2022 4:49 PM EDT documented as of this encounter Care Teams Direct Mail Marketer Relationship Specialty Start Date End Date Chris Amanda PCP - General 01/28/07 08/21/23 Sunny Jenkins MD PCP - General Internal Medicine 08/22/23 Janet Dillard DO Referring Family Medicine 07/14/21 Yvonne Baumann RN [address] [place] [address] [place] [address] Specialty Communications Tech Hematology/Oncology 09/23/23 04/21/24 Mitch Garcia MD [address] [place] [address] [place] [address] Physician Hematology/Oncology 09/23/23 Hilda Templeton, PA-C [address] [place] [address] [place] [address] Physician Cold Mill Inspector Hematology/Oncology 09/23/23 Deepika Garcia LSW Assembler Dc Field Ring 09/24/[address] [place] [address] [place] [address] Registered Dietitian Nutrition 10/22/23 Nia Snider, MALORIE Specialty Communications Tech Hematology/Oncology 04/22/24 documented as of this encounter
--- OUTSIDE RECORDS SUMMARY | 2025-05-27 08:43 | XMS_ITS | Encounter Summary ---
Author Organization [facility] Address [address] [place], [place] [id number] Care Team Providers Care System Analyst Name Role Phone Janet Dillard DO Unavailable Unavailabl Sunny Stone MD Primary Care Provider [phone] Mitch Garcia MD Unavailable [phone] Deepika Garcia Unavailable Unavailable Nona Lomax RD Unavailable [phone] Nia Snider RN Unavailable Unavailable Source Comments In the event this information is protected by the Federal Confidentiality of Alcohol and Drug AbusePatient Records regulations: The Federal rules restrict any use of the information to criminally investigate or prosecute any alcohol or drug abuse patient.[facility] Encounter Details Date Type Department Care Team (Late st Contact Info) Description 05/24/2025 Patient Msg Pre Anesthesia [address] [place], [place] [id number] Kristin Schwartz, RUMPER.PERIOPERATIVE ASSISTANT [address] [place] [address] PATIENT PREOPERATIVE INSTRUCTIONS Social History Tobacco Use Types Packs/Day Years [...] in a detention (including now)? No 07/30/2023 AUDIT-C Answer Date [...] is lower risk 9 01/29/2023 Data from: https://www.neighborhoodatlas.medicine.[facility].edu/. Last address used for calculation Armando Mayen 01/29/2023 Comments No Sex and Gender Information Value Date Recorded Sex Assigned at Female 08/14/2024 10:40 AM EST Legal Sex Female 8:08 AM EST Gender Identity Not on file Sexual Orientation Straight 08/14/2024 10 :40 AM EST documented as of this encounter Functional Status * AUDIT-C Score Answer Date of Assessment Author 0 05/24/2025 8:01 AM Me ginny Tristan, RUMPER.PERIOPERATIVE ASSISTANT * Question Answer Date of Assessment Author Q1: How often do you have a drink containing alcohol? Never 05/24/2025 8:01 AM Kristin Tristan, RUMPER.PERIOPERATIVE ASSISTANT Q2: How many drinks containing alcohol do you have on a typical day when you are drinking? Patient does not drink 05/24/2025 8:01 AM Kristin Tristan, RUMPER.PERIOPERATIVE ASSISTANT Q3: How often do you have six or more drinks on one occasion? Never 05/24/2025 8:01 AM Kristin Tristan, RUMPER.PERIOPERATIVE ASSISTANT * Are you deaf or do you [...] 09/05/2023 8:47 AM Cassia Sandoval RN * Because of [...] Entry Date Author No 09/05/2023 8:47 AM EST Belle Xiong RN documented in this encounter Plan of Treatment Upcoming Encounters Date Type Department Care Team (Late st Contact Info) Description 06/07/2025 7:30 AM EDT Specialty [facility] [address] [place] [address] AC[address] [place] [address] Pharmacist, [facility] [address] [place] [address] [place] [address] Refill - Kisqali [28DS] /06/08/2025 9:00 AM EDT Office Visit Rheumatology 5700 [facility] [place] [address] Immanuel Oliveros APRN.PERIOPERATIVE ASSISTANT 5700 [facility] [place] [address] RA 06/10/2025 1:30 PM EDT Appointment Procedures [address] [place] [address] Debbie Gunn MD [address] [place] [address] [place] [address] 07/07/2025 9:00 AM EST Infusion Center Hematology/Oncolo gy [address] [place] [address] lab 07/14/2025 9:30 AM EST [facility] Hematology [address] [place] [address] Mitch Garcia MD [address] [place] [address] Schedule labs prior to Virtual visit with DR Garcia 07/15/2025 9:00 AM EST Infusion Center Hematology/Oncolo gy [address] [place] [address] Prolia injection day after RADHA virtual visit per staff message 08/23/2025 10:00 AM EST Office Visit Kidney Medicine [address] [place] [address] Shante Carroll, RUMPER.PERIOPERATIVE ASSISTANT [address] [facility] [address] [place], [place] [id number] 6 month follow up documented as of this encounter Visit Diagnoses Not on filedocumented in this encounter Care Teams System Analyst Relationship Specialty Start Date End Date Sunny Jenkins MD PCP - General Internal Medicine 08/22/23 Janet Dillard DO Referring Family Medicine 07/14/21 Mitch Garcia MD [address] [facility] [place] [address] Physician Hematology/Oncology 09/23/23 Deepika Garcia LSW Uptwist Spinner 09/24/[address] [place] [address] Registered Dietitian Nutrition 10/22/23 Nia Snider, RN Specialty Cnc Mill And Lathe Operator Hematology/Oncology 04/22/24 documented as of this encounter
--- OUTSIDE RECORDS SUMMARY | 2025-05-27 08:43 | XMS_ITS | Encounter Summary ---
Author Organization [employer] tem Address [facility]-[id number] [address] [place] [address] Care Team Providers Care Face Hardener Name Role Phone Sunny Jenkins MD Primary Care Provider [phone] Encounter Details Date Type Department Care Team (Late st Contact Info) Description 11/19/2023 [facility] [address] [place] [address] [place] [address] Sunny Jenkins MD [address] [place] [address] Social History Tobacco Use Types [...] PCP. Patient being discharged from the [facility] 11/19/2023. Patient scheduled for SHEBA appointment with [...] Office Visit [facility] [address] [place] [address] Sunny Jenkins MD 605 [place] [address] documented as of this encounter Visit Diagnoses Not on filedocumented in this encounter Additional Health Concerns Assessment Noted Time PHQ-9 Depression Total Score: 3 05/14/20 23 3:00 PM EDT documented as of this encounter Care Teams Face Hardener Relationship Specialty Start Date End Date Sunny Jenkins MD [address], [facility] [place] [address] PCP - General Internal Medicine 04/02/23 documented as of this encounter
--- OUTSIDE RECORDS SUMMARY | 2025-05-27 08:43 | XMS_ITS | Encounter Summary ---
Author Organization [facility] Address [address] [place] [address] Care Team Providers Care Judicial Assistant Name Role Phone Chris Amanda Primary Care Provider [phone] Janet Dillard DO Unavailable UnavailSunny Coates MD Primary Care Provider [phone] Yvonne Baumann RN Unavailable [phone] Mitch Garcia MD Unavailable [phone] Hilda Templeton-C Unavailable [phone] Deepika Garcia Unavailable Unavailable Nona Lomax RD Unavailable [phone] Nia Snider RN Unavailable Unavailable Source Comments In the event this information is protected by the Federal Confidentiality of Alcohol and Drug AbusePatient Records regulations: The Federal rules restrict any use of the information to criminally investigate or prosecute any alcohol or drug abuse patient.[facility] Encounter Details Date Type Department Care Team (Late st Contact Info) Description 03/19/2022 Patient Msg Neurology [address] [place] [address] Provider, [facility] Requested EMG Appointment [...] slept in a longterm (including now)? No 03/14/2022 Area Deprivation Index Answer Date Joaquin rded National Score (1-100), lower number is lower ri sk 84 03/23/2022 State Score (1-10), lower number is lower risk N ot on file 03/23/2022 Data from: https://www.neighborhoodatlas.medicine.[facility].edu/. Last address used for calculation [...] Amanda Coffey RN * Do you have difficulty [...] AM EDT Specialty Pharmacy [facility] [address] [facility] [address] AC[address] [place] [address] Pharmacist, [facility] [address] [place] [address] [place] [address] Refill - Kisqali [28DS] C10/20 06/08/2025 9:00 AM EDT Office Visit Rheumatology 57[address] [facility] [place] [address] Immanuel Oliveros APRN.INSPECTOR GENERAL 5700 [facility] [place] [address] RA 06/10/2025 1:30 PM EDT Appointment Procedures [address] [place] [address] Debbie Gunn MD [address] [facility] [place] [address] 07/07/2025 9:00 AM [facility] Infusion Center Hematology/Oncolo gy [address] [facility] [address] lab 07/14/2025 9:30 AM [facility] Hematology [address] [place] [address] Mitch Garcia MD [address] [place] [address] Schedule labs prior to Virtual visit with DR Garcia 07/15/2025 9:00 AM [facility] Center Hematology/Oncolo gy [address] [facility] [place] [address] Prolia injection day after RADHA virtual visit per staff message 08/23/2025 10:00 AM EST Office Visit Kidney Medicine [address] [place] [address] Shante Carroll APRN.INSPECTOR GENERAL [address] [facility] [place] [address] 6 month follow up documented as of this encounter Visit Diagnoses Not on filedocumented in this encounter Care Teams Judicial Assistant Relationship Specialty Start Date End Date Chris Amanda PCP - General 01/28/07 08/21/23 Sunny Jenkins MD PCP - General Internal Medicine 08/22/23 Janet Dillard DO Referring Family Medicine 07/14/21 Yvonne Baumann RN [address] [place] [address] [place] [address] Specialty Artillery Specialist Hematology/Oncology 09/23/23 04/21/24 Mitch Garcia MD [address] [place] [address] [place] [address] Physician Hematology/Oncology 09/23/23 Hilda Templeton PA-C [address] [place] [address] [place] [address] Physician Toy Electric Train Repairer Hematology/Oncology 09/23/23 Deepika Garcia LSW Technical Services Representative 09/24/[address] [place] [address] [place] [address] Registered Dietitian Nutrition 10/22/23 Nia Snider, MALORIE Specialty Artillery Specialist Hematology/Oncology 04/22/24 documented as of this encounter
--- OUTSIDE RECORDS SUMMARY | 2025-05-27 08:43 | XMS_ITS | Encounter Summary ---
Author Organization [facility] Address [address] [place] [address] Care Team Providers Care Dance Master Name Role Phone Janet Dillard DO Unavailable Unavailabl Sunny Stone MD Primary Care Provider [phone] Mitch Garcia MD Unavailable [phone] Deepika Garcia Unavailable Unavailable Nona Lomax RD Unavailable [phone] Nia Snider RN Unavailable Unavailable Source Comments In the event this information is protected by the Federal Confidentiality of Alcohol and Drug AbusePatient Records regulations: The Federal rules restrict any use of the information to criminally investigate or prosecute any alcohol or drug abuse patient.[facility] Encounter Details Date Type Department Care Team (Late st Contact Info) Description 05/25/2025 Patient Msg Gastroenterology [address] [place], [place] [id number] Debbie Gunn MD [address] [place] [address] [place] [address] egd prep instructions Social History Tobacco Use Types [...] a care home (including now)? No 07/30/2023 AUDIT-C Answer Date [...] is lower risk 9 01/29/2023 Data from: https://www.neighborhoodatlas.medicine.[facility].edu/. Last address used for calculation [address] 01/29/2023 Comments No Sex and Gender [...] AM EDT Specialty Pharmacy [facility] [address] [facility] [address] AC[address] [place] [address] Pharmacist, [facility]ty[facility] [address] [place] [address] [place] [address] Refill - Kisqali [28DS] /06/08/2025 9:00 AM EDT Office Visit Rheumatology 5700 [place], [place] [id number] Immanuel Oliveros APRN.BLENDER CONVEYOR OPERATOR 5700 [facility] [place] [address] RA 06/10/2025 1:30 PM EDT Appointment Procedures [address] [place] [address] Debbie Gunn MD [address] [place] [address] [place] [address] 07/07/2025 9:00 AM EST Infusion Center Hematology/Oncolo gy [address] [facility] [place] [address] lab 07/14/2025 9:30 AM EST [facility] Hematology [address] [place] [address] Mitch Garcia MD [address] [place] [address] Schedule labs prior to Virtual visit with DR Garcia 07/15/2025 9:00 AM EST Infusion Center Hematology/Oncolo gy [address] [facility] [place] [address] Prolia injection day after RADHA virtual visit per staff message 08/23/2025 10:00 AM EST Office Visit Kidney Medicine [address] [place] [address] Shante Carroll, VIDEOTAPE RECORDING ENGINEER.BLENDER CONVEYOR OPERATOR [address] [facility] [place] [address] 6 month follow up documented as of this encounter Visit Diagnoses Not on filedocumented in this encounter Care Teams Dance Master Relationship Specialty Start Date End Date Sunny Jenkins MD PCP - General Internal Medicine 08/22/23 Janet Dillard DO Referring Family Medicine 07/14/21 Mitch Garcia MD [address] [place] [address] Physician Hematology/Oncology 09/23/23 Deepika Garcia LSW Art History Instructor 09/24/[address] [place] [address] [place] [address] Registered Dietitian Nutrition 10/22/23 Nia Snider, RN Specialty Inspector Agricultural Commodities Hematology/Oncology 04/22/24 documented as of this encounter
--- OUTSIDE RECORDS SUMMARY | 2025-05-27 08:43 | XMS_ITS | Encounter Summary ---
Author Organization [facility] Address [address] [place] [address] Care Team Providers Care Catering Server Name Role Phone Janet Dillard DO Unavailable Unavailabl Sunny Stone MD Primary Care Provider [phone] Yvonne Baumann RN Unavailable [phone] Mitch Garcia MD Unavailable [phone] Hilda TempletonC Unavailable [phone] Deepika Garcia Unavailable Unavailable Nona Lomax RD Unavailable [phone] Nia Snider RN Unavailable Unavailable Source Comments In the event this information is protected by the Federal Confidentiality of Alcohol and Drug AbusePatient Records regulations: The Federal rules restrict any use of the information to criminally investigate or prosecute any alcohol or drug abuse patient.[facility] Encounter Details Date Type Department Care Team [...] place to sleep or slept in a mcfp (including now)? No 07/30/2023 Area Deprivation Index [...] Assessment Author No 09/05/2023 8:47 AM Belle Sadnoval RN * Are you blind or do [...] AM EDT Specialty Pharmacy [facility] [address] [place], [place] 912084-b-100 [place] [address] Pharmacist, [facility]ty[facility] [address] [place] [address] [place] [address] Refill - Kisqali [28DS] C10/20 06/08/2025 9:00 AM EDT Office Visit Rheumatology 5700 [facility] [address] [place] [address] Immanuel Oliveros APRN.POLICY CHANGE CLERKS SUPERVISOR 57[address] [facility] [place] [id number] RA 06/10/2025 1:30 PM EDT Appointment Procedures [address] [facility] [place] [address] Debbie Gunn MD [address] [place] [address] [address] [place], [place] [address] 07/07/2025 9:00 AM EST Infusion Center Hematology/Oncolo gy [address] [facility] [place] [address] lab 07/14/2025 9:30 AM EST [facility] Hematology [address] [place] [address] Mitch Garcia MD 417 [place] [address] Schedule labs prior to Virtual visit with DR Garcia 07/15/2025 9:00 AM EST [facility] Center Hematology/Oncolo gy [address] [facility] [place] [address] Prolia injection day after RADHA virtual visit per staff message 08/23/2025 10:00 AM EST Office Visit Kidney Medicine [address] [place] [address] Shante Carroll APRN.POLICY CHANGE CLERKS SUPERVISOR [address] [facility] [place] [address] 6 month follow up documented as of this encounter Visit Diagnoses Not on filedocumented in this encounter Care Teams Catering Server Relationship Specialty Start Date End Date Sunny Jenkins MD PCP - General Internal Medicine 08/22/23 Janet Dillard DO Referring Family Medicine 07/14/21 Yvonne Baumann, MALORIE [address] [facility] [place] [address] Specialty Senior Cost Accountant Hematology/Oncology 09/23/23 04/21/24 Mitch Garcia MD [address] [place] [address] Physician Hematology/Oncology 09/23/23 Hilda Templeton, PA-C [address] [place] [address] [place] [address] Physician Drip Pumper Hematology/Oncology 09/23/23 Deepika Garcia LSW Horseback Excavator 09/24/[address] [place] [address] [place] [address] Registered Dietitian Nutrition 10/22/23 Nia Snider, MALORIE Specialty Senior Cost Accountant Hematology/Oncology 04/22/24 documented as of this encounter
--- OUTSIDE RECORDS SUMMARY | 2025-05-27 08:43 | XMS_ITS | Encounter Summary ---
Author Organization [facility] Address [facility]-[id number] [address] [place] [address] Care Team Providers Care Cuff Stitcher Name Role Phone Sunny Jenkins MD Primary Care Provider Reason for Visit * Reason Comments Med Refill Encounter Details Date Type Department Care Team (Late st Contact Info) Description 10/04/2023 Refill [facility] Rhe[facility] [address] [phone] Celia Lewis MD [address] [address] Social History Tobacco Use Types Packs/Day Years [...] Visit [facility] [address] [place] [address] Sunny Jenkins MD [address] [facility] [place] [address] documented as of this encounter Visit Diagnoses Not on filedocumented in this encounter Additional Health Concerns Assessment Noted Time PHQ-9 Depression Total Score: 3 05/14/20 23 3:00 PM EDT documented as of this encounter Care Teams Cuff Stitcher Relationship Specialty Start Date End Date Sunny Jenkins MD [address] [place] [address] PCP - General Internal Medicine 04/02/23 documented as of this encounter
--- OUTSIDE RECORDS SUMMARY | 2025-05-27 08:43 | XMS_ITS | Encounter Summary ---
Author Organization [employer] [facility] tem Address [facility][id number] [address] [place] [address] Care Team Providers Care Wildlife Enforcement Major Name Role Phone Sunny Coleman MD Primary Care Provider [phone] Encounter Details Date Type Department Care Team (Late st Contact Info) Description 08/02/2023 [facility] [address] [place] [address] [place] [address] Will Dean CMA Social History [...] Office Visit [facility] [address] [place] [address] Sunny Coleman MD [address] [place], [place] [address] documented as of this encounter Visit Diagnoses Not on filedocumented in this encounter Additional Health Concerns Assessment Noted Time PHQ-9 Depression Total Score: 3 05/14/20 23 3:00 PM EDT documented as of this encounter Care Teams Wildlife Enforcement Major Relationship Specialty Start Date End Date Sunny Coleman MD [address] [place], [place] [address] PCP - General Internal Medicine 04/02/23 documented as of this encounter
--- NOTE | 2025-05-27 08:44 | ED.SOB1 ---
HPI - SOB/Dyspnea General Chief Complaint: Shortness of Breath/Dyspnea Stated Complaint: SOB Time Seen by Provider: 05/27/25 08:41 Source: patient Mode of arrival: Wheelchair Limitations: no limitations History of Present Illness HPI Narrative: cc - shortness of breath Pt drove herself to the ED and then called and asked staff to meet her at the car. She developed shortness of breath yesterday and it increased this morning. She said she has chest congestion but I cannot cough it up . She is concerned that she has pneumonia. No fever or chills. No chest pain. No leg swelling or pain in the calf or popliteal area. She had a Pulm workup and told me they said that my hiatal hernia and my scoliosis cause my trouble breathing . She has breast cancer and is currently undergoing chemotherapy and has a chest port. Related Data Home Medications ?Medication ?Instructions ?Recorded ?Confirmed cholecalciferol (vitamin D3) 125 125 mcg PO DAILY 01/25/23 10/19/24 mcg (5,000 unit) capsule metoprolol tartrate 50 mg tablet 50 mg PO BID 01/25/23 10/19/24 multivitamin 1 tab PO DAILY 01/25/23 10/19/24 potassium chloride 10 mEq 10 meq PO DAILY 01/25/23 10/19/24 capsule,extended release atorvastatin 40 mg tablet 40 mg PO .QHS 11/16/23 10/19/24 losartan 50 mg tablet (Cozaar) 50 mg PO DAILY 11/16/23 10/19/24 letrozole 2.5 mg tablet 2.5 mg PO QDAY 10/19/24 10/19/24 naproxen 500 mg tablet 500 mg PO Q12H PRN pain 10/19/24 10/19/24 ribociclib 400 mg/day (200 mg x 2) 400 mg PO Q24H 10/19/24 10/19/24 tablets (Kisqali) Previous Rx's ?Medication ?Instructions ?Recorded furosemide 20 mg tablet 40 mg (2 x 20 mg) PO DAILY #0 tabs 11/08/23 spironolactone 25 mg tablet 25 mg PO DAILY #30 tabs 11/08/23 (Aldactone) oseltamivir 30 mg capsule 30 mg PO BID 5 days #10 caps 10/20/24 acetaminophen 300 mg-codeine 30 mg 1 tab PO Q6H PRN pain 5 days #20 05/04/25 tablet tabs Allergies Allergy/AdvReac Type Severity Reaction Status Date / Time Sulfa (Sulfonamide Allergy Intermediate Hives Verified 05/27/25 08:36 Antibiotics) adhesive tape AdvReac Intermediate Rash Verified 05/27/25 08:36 fentanyl AdvReac Intermediate bradycardia Verified 05/27/25 08:36 PFSH PFSH Medical History Breast cancer, left breast ?C50.912 - Malignant neoplasm of unspecified site of left female breast (ICD-10) Pulmonary embolism and infarction ?I26.99 - Other pulmonary embolism without acute cor pulmonale (ICD-10) Pulmonary embolism on right ?I26.99 - Other pulmonary embolism without acute cor pulmonale (ICD-10) Lymph node cancer ?C77.9 - Secondary and unspecified malignant neoplasm of lymph node, unspecified (ICD-10) Numbness and tingling of both lower extremities ?R20.0 - Anesthesia of skin (ICD-10) ?R20.2 - Paresthesia of skin (ICD-10) 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 - Postmastectomy lymphedema syndrome (ICD-10) Rheumatoid arthritis ?M06.9 - Rheumatoid arthritis, unspecified (ICD-10) Spinal stenosis ?M48.00 - Spinal stenosis, site unspecified (ICD-10) Kidney stones ?N20.0 - Calculus of kidney (ICD-10) Heart murmur ?R01.1 - Cardiac murmur, unspecified (ICD-10) Scoliosis ?M41.9 - Scoliosis, unspecified (ICD-10) Hyperlipemia ?E78.5 - Hyperlipidemia, unspecified (ICD-10) Obesity ?E66.9 - Obesity, unspecified (ICD-10) Borderline diabetes ?R73.03 - Prediabetes (ICD-10) Breast cancer ?C50.919 - Malignant neoplasm of unspecified site of unspecified female breast (ICD-10) Edema ?R60.9 - Edema, unspecified (ICD-10) GERD (gastroesophageal reflux disease) ?K21.9 - Gastro-esophageal reflux disease without esophagitis (ICD-10) COPD (chronic obstructive pulmonary disease) ?J44.9 - Chronic obstructive pulmonary disease, unspecified (ICD-10) HTN (hypertension) ?I10 - Essential (primary) hypertension (ICD-10) Surgical History History of mastectomy ?Z90.10 - Acquired absence of unspecified breast and nipple (ICD-10) History of total left knee replacement ?Z96.652 - Presence of left artificial knee joint (ICD-10) History of total right knee replacement ?Z96.651 - Presence of right artificial knee joint (ICD-10) History of back surgery ?Z98.890 - Other specified postprocedural states (ICD-10) Family History Father Family history of CHF (congestive heart failure) Family history of cancer Family history of hypertension Sister Family history of stroke Mother Family history of cancer Family history of hypertension Social History Within the past year, how often did you have a drink containing alcohol: never Within the past year, how many standard drinks containing alcohol did you have on a typical day: 1 or 2 Within the past year, how often did you have six or more drinks on one occasion: never Total score: 0 Score interpretation: A score less than 3 is consistent with normal alcohol consumption. Smoking status: Never smoker Second hand tobacco smoke exposure: No Non-prescribed substance use: denies use Previous occupational history: none Known occupational exposures/hazards: No Highest level of school completed/degree received: high school graduate Do you want help with school or training: No Are you now , , , , never or living with a partner: don't know In a typical week, how many times do you talk on the telephone with family, friends, or neighbors: 3 or more times per week How often do you get together with friends or relatives: once per week How often do you attend alevism or worship services: never Do you belong to any clubs or organizations such as alevism groups unions, fraternal or athletic groups, or school groups: no Total score: 1 Score interpretation: A score of less than or equal to 1 indicates the most socially isolated. Little interest or pleasure in doing things: not at all Feeling down, depressed, or hopeless: not at all Feel stressed/tense/nervous/anxious/difficulty sleeping: to some extent Life stressors: other Life stressor details: diagnosis with breast cancer Due to disability, difficulty making decisions: No Do you think of yourself as: straight/heterosexual Gender Identity: female Exam Narrative Exam Narrative: Nurses notes and vital signs reviewed and patient is not hypoxic. afebrile General: Anxious and tachypneic. Skin: Warm, dry, no pallor noted. Head: Normocephalic, atraumatic. Neck: Supple, non-tender. Eye: Pupils are equal, round and EOMI. No scleral icterus. Ears, Nose, Mouth, and Throat: Oral mucosa is moist Cardiovascular: Tachycardia. Respiratory: No accessory muscle use or respiratory distress. Lungs are clear to auscultation, no wheezing, rales or rhonchi Musculoskeletal: normal ROM, no calf or popliteal tenderness, no lower extremity edema/swelling GI: Abdomen is soft, non-distended. Normal bowel sounds. No tenderness to palpation. No rebound, guarding, or rigidity noted. Neurological: A&O x4. No cranial nerve dysfunction observed. No truncal ataxia. Moves all extremities. Sensation intact. Psychiatric: Cooperative and interactive. Anxious and emotional. Constitutional Vital Signs, click to edit/add: Last Vital Signs Temp 98.1 F 05/27/25 08:36 Pulse 100 H 05/27/25 14:20 Resp 19 05/27/25 14:20 BP 146/84 H 05/27/25 12:50 Pulse Ox 95 05/27/25 14:20 O2 Del Method Nasal Cannula 05/27/25 12:28 O2 Flow Rate 2 05/27/25 12:28 Course Vital Signs Vital signs: Vital Signs Temperature 98.1 F 05/27/25 08:36 Pulse Rate 129 H 05/27/25 08:36 Respiratory Rate 34 H 05/27/25 08:36 Blood Pressure 173/90 H 05/27/25 08:36 Pulse Oximetry 94 L 05/27/25 08:36 Oxygen Delivery Method Room Air 05/27/25 08:36 Temperature 98.1 F 05/27/25 08:36 Pulse Rate 100 H 05/27/25 14:20 Respiratory Rate 19 05/27/25 14:20 Blood Pressure 146/84 H 05/27/25 12:50 Pulse Oximetry 95 05/27/25 14:20 Oxygen Delivery Method Nasal Cannula 05/27/25 12:28 Oxygen Delivery Flow Rate 2 05/27/25 12:28 MDM - SOB/Dyspnea MDM Narrative Medical decision making narrative: Patient was placed on cardiac care unit nurse and EKG obtained. Blood drawn and sent for evaluation. Portable chest x-ray obtained. Normal white blood cell count and unremarkable CBC. CMP likewise unremarkable and the lactate was normal. D-dimer is elevated at 4.69. Troponin was elevated at 418.3. BNP was normal. Patient was sent for CTA of the chest with concern for pulmonary embolism as a primary diagnosis. Repeat troponin was elevated at 677 According to the radiologist report, CT angio chest revealed bilateral distal/peripheral pulmonary emboli. The patient was immediately ordered to undergo heparin bolus and heparin drip for treatment of her pulmonary emboli. She and I discussed her findings, diagnosis, recommended treatment and need for transfer. She was agreeable to be transferred to [facility] under the service of the hospitalist with an ICU stay. Call was placed to [facility] to discuss transfer @ 1150. Door Machine Operator was told that I had to talk with Dr Adams regarding this patient and @ 12:25, I spoke with Dr Adams, who accepted the patient's transfer to [facility]. @ 12:27 I confirmed that the CTA images are available on PACS at [facility] after the phone cut out. @12:32 I was able to talk with Dr Adams some more and he agreed to accept the patient - agrees with our workup and treatment. Patient informed of acceptance at [facility] and now we are awaiting bed assignment and then will initiate transportation. @[address] Benjamin, the hospitalist. e accepted the patient's admission to their ICU. Apparently Dr Adams will be a exchange underwriting consultant on the case. Transport arrived @ 14:28 and pt is stable for transfer to [facility]. Differential Diagnosis Differential diagnosis: Likely acute exacerbation of chronic obstructive airways disease, congestive heart failure, community acquired pneumonia, asthma with exacerbation and pulmonary embolism Medical Records Attestation: I reviewed the patient's medical records. Medical records narrative: Prior admission for diastolic dysfunction/heart failure Lab Data Attestation: I reviewed the patient's lab results. Labs: Lab Results 05/27/25 05/27/25 Range/Units 08:56 10:56 WBC 4.2 (4.0-11.0) 10^3/uL RBC 3.44 L (4.20-5.40) 10^6/uL Hgb 12.3 (12.0-16.0) g/dL Hct 36.0 (36.0-48.0) % MCV 104.7 H (81.0-99.0) fL MCH 35.8 H (26.7-34.0) pg MCHC 34.2 (29.9-35.2) g/dL RDW 14.6 (11.0-15.0) % Plt Count 211 (150-450) 10^3/uL MPV 9.8 (9.5-13.5) fL Seg Neuts % (Manual) 77.0 H (43.0-75.0) Lymphocytes % (Manual) 14.0 L (20.5-60.0) % Atypical Lymphs % (Man) 6.0 % Monocytes % (Manual) 3.0 (1.7-12.0) % Eosinophils % (Manual) 0.0 L (0.9-7.0) % Basophils % (Manual) 0.0 L (0.2-2.0) % Neutrophils # (Manual) 3.23 (1.4-6.5) 10^3/uL Lymphocytes # (Manual) 0.58 L (1.20-3.80) 10^3/uL Abs Atypical Lymphs Man 0.25 Monocytes # (Manual) 0.12 L (0.30-0.80) 10^3/uL Eosinophils # (Manual) 0.00 (0.00-0.70) 10^3/uL Basophils # (Manual) 0.00 (0.00-0.10) 10^3/uL PT 11.9 H (9.0-11.6) sec INR 1.14 APTT 26.3 (22.3-36.2) sec D-Dimer 4.69 H* (<=0.59) mg/L FEU Sodium 139 (136-145) mmol/L Potassium 3.9 (3.5-5.1) mmol/L Chloride 100 (98-107) mmol/L Carbon Dioxide 25.5 (21.0-32.0) mmol/L Anion Gap 17.4 BUN 16.0 (7.0-18.0) mg/dL Creatinine 1.43 H (0.55-1.02) mg/dL Est GFR ( Amer) 44 L (>=60 mL/min/1.73m^2) Est GFR (Non-Af Amer) 36 L (>=60 mL/min/1.73m^2) BUN/Creatinine Ratio 11.2 Glucose 185 H (74-106) mg/dL Lactate 1.9 (0.4-2.0) mmol/L Calcium 8.7 (8.5-10.1) mg/dL Total Bilirubin 0.9 (0.2-1.0) mg/dL AST 11 L (15-37) U/L ALT 24 (14-59) U/L Alkaline Phosphatase 94 (46-116) U/L Troponin I High Sens 418.3 H* 677.0 H* (4.0-51.3) pg/mL NT-Pro-B Natriuret Pep 218.0 (<=900.0) pg/mL Total Protein 7.3 (6.4-8.2) g/dL Albumin 3.3 L (3.4-5.0) g/dL Globulin 4.0 g/dL Albumin/Globulin Ratio 0.8 Imaging Data Chest x-ray: Attestation: I have reviewed the pertinent imaging results. Radiologist's impression: ITS Impressions Chest X-Ray 05/27/25 08:41 IMPRESSION: HIATAL HERNIA. CARDIOMEGALY WITH CONTINUED INTERSTITIAL CHANGES AND POSSIBLE GROUNDGLASS OPACITY. FAILURE IS IN THE DIFFERENTIAL. SIMILAR FINDINGS WERE SEEN PREVIOUSLY. CLINICAL CORRELATION IS RECOMMENDED. Impression dictated by: Pat Roberts M.D. 05/27/2025 9:48 AM Dictation Location: [place] [address] Electronically authenticated by: [id number] Y Date: 05/27/2025 09:48 Chest CTA 05/27/25 10:45 IMPRESSION: BILATERAL PULMONARY EMBOLI. ATELECTASIS AND/OR SCARRING. LARGE HIATAL HERNIA. Impression dictated by: Pat Roberts M.D. 05/27/2025 11:36 AM Dictation Location: [place] [address] Electronically authenticated by: [id number] Y Date: 05/27/2025 11:36 ECG Data Attestation: I personally reviewed and interpreted this ECG as follows: Interpretation: EKG interpretation:Emergency Department physician interpretation.sinus tachycardia at 118bpm. Normal axis, normal intervals and nonspecific T wave changes without ST segment elevation or depression. Critical Care Time Critical Care Time Critical Care Time: Yes Total Critical Care Time: 62 Attestation: Critical Care Time: 62 minutes, critical care time is separate from any procedures that are performed. The following was considered in the determination of critical care but not limited to the level medical decision-making, intensive cardiac and/or respiratory monitor, frequent vital sign monitoring, evaluation of laboratory studies, evaluation of a radiographic studies, oxygen monitoring and constant monitoring. Discharge Plan Discharge Chief Complaint: Shortness of Breath/Dyspnea Clinical Impression: Pulmonary emboli, Elevated troponin Patient Disposition: [facility] Time of Disposition Decision: 11:57
--- OUTSIDE RECORDS SUMMARY | 2025-05-27 08:44 | XMS_ITS | Encounter Summary ---
Author Organization [employer] tem Address [facility]-[id number] [address] [place] [address] Care Team Providers Care Sewing Room Supervisor Name Role Phone Sunny Jenkins MD Primary Care Provider Encounter Details Date Type Department Care Team (Late Contact Info) Description 02/17/2025 Telephone [facility] [address] [place] [address] [place] [address] Cristina Kent CNA Social History [...] Family Medicine [address] [place] [address] Sunny Jenkins MD [address] [place] [address] documented as of this encounter Visit Diagnoses Not on filedocumented in this encounter Additional Health Concerns Assessment Noted Time PHQ-9 Depression Total Score: 3 06/10/20 24 9:00 AM EDT documented as of this encounter Care Teams Sewing Room Supervisor Relationship Specialty Start Date End Date Sunny Jenkins MD [address] [facility] [place] [address] PCP - General Internal Medicine 04/02/23 documented as of this encounter
--- OUTSIDE RECORDS SUMMARY | 2025-05-27 08:44 | XMS_ITS | Encounter Summary ---
Author Organization [employer] Address [id number] [address] [place] [address] Care Team Providers Care Cow Tester Name Role Phone Sunny Jenkins MD Primary Care Provider [phone] Encounter Details Date Type Department Care Team (Late st Contact Info) Description 02/10/2024 Telephone [facility] Rhe[facility]ology 5700 [facility] [address] [place] [address] Mike Elliott CMA Social History [...] new radiology oncologist ; Dr. Josef Fitzgerald [facility]. I spoke directly to Dr. Austin & [...] Office Visit [facility] [address] [place] [address] [place] [address] Sunny Jenkins MD [address] [facility] [place] [address] documented as of this encounter Visit Diagnoses Not on filedocumented in this encounter Additional Health Concerns Assessment Noted Time PHQ-9 Depression Total Score: 3 05/14/20 23 3:00 PM EDT documented as of this encounter Care Teams Cow Tester Relationship Specialty Start Date End Date Sunny Jenkins MD [address] [facility] [place] [address] PCP - General Internal Medicine 04/02/23 documented as of this encounter
--- OUTSIDE RECORDS SUMMARY | 2025-05-27 08:44 | XMS_ITS | Encounter Summary ---
Author Organization [facility] Address [id number] [address] [place] [address] Care Team Providers Care Esl Tutor Name Role Phone Sunny Jenkins MD Primary Care Provider [phone] Encounter Details Date Type Department Care Team (Late st Contact Info) Description 01/09/2024 [facility] [address] [place] [address] [place] [address] Will Dean CMA Social History [...] she had been in the ER at [facility] 01/08/2024 (records requested) and was diagnosed with diverticulitis.Patient had questioned being on two doses of antibiotics and if she should be on them both at the same time. She did state that she had a ct preformed at that time also with [place]. Chemo was not preformed due to her [...] Visit [facility] [address] [place] [address] Sunny Jenkins MD [address] [place] [address] documented as of this encounter Visit Diagnoses Not on filedocumented in this encounter Additional Health Concerns Assessment Noted Time PHQ-9 Depression Total Score: 3 05/14/20 23 3:00 PM EDT documented as of this encounter Care Teams Esl Tutor Relationship Specialty Start Date End Date Sunny Jenkins MD [address] [facility] [place] [address] PCP - General Internal Medicine 04/02/23 documented as of this encounter
--- OUTSIDE RECORDS SUMMARY | 2025-05-27 08:44 | XMS_ITS | Encounter Summary ---
Author Organization [employer] [facility] tem Address [facility]-[id number] [address] [place] [address] Care Team Providers Care Warehouse Supervisor Name Role Phone Sunny Jenkins MD Primary Care Provider Encounter Details Date Type Department Care Team (Late st Contact Info) Description 12/19/[address] [facility] [address] [place] [address] [address] Will Dean CMA Social History [...] please. Initial prescription ended. Please send to [facility] in [place] * Telephone Encounter - MIR [...] Office Visit [facility] [address] [place] [address] [place] [address] Sunny Jenkins MD [address] [place] [address] documented as of this encounter Visit Diagnoses Not on filedocumented in this encounter Additional Health Concerns Assessment Noted Time PHQ-9 Depression Total Score: 3 05/14/20 23 3:00 PM EDT documented as of this encounter Care Teams Warehouse Supervisor Relationship Specialty Start Date End Date Sunny Jenkins MD [address] [place] [address] PCP - General Internal Medicine 04/02/23 documented as of this encounter
--- OUTSIDE RECORDS SUMMARY | 2025-05-27 08:44 | XMS_ITS | Encounter Summary ---
Author Organization [employer] tem Address [facility]-[id number] [address] [place] [address] Care Team Providers Care Court Bailiff Or Sheriff Name Role Phone Sunny Jenkins MD Primary Care Provider [phone] Encounter Details Date Type Department Care Team (Late Contact Info) Description 01/10/2024 Orders Only [facility] [address] [place] [address] [place] [address] External, Scanning Provider Social History [...] Family Medicine [address] [facility] [place] [address] Sunny Jenkins MD [address] [place], [place] [address] documented as of this encounter Procedures Procedure Name Priority Date/Time Associated Diagnosis Comments ELECTROCARDIOGRAM REPORT Routine 024 12:36 PM EDT documented in this encounter Visit Diagnoses Not on filedocumented in this encounter Additional Health Concerns Assessment Noted Time PHQ-9 Depression Total Score: 3 05/14/20 23 3:00 PM EDT documented as of this encounter Care Teams Court Bailiff Or Sheriff Relationship Specialty Start Date End Date Sunny Jenkins MD [address] [place] [address] PCP - General Internal Medicine 04/02/23 documented as of this encounter
--- OUTSIDE RECORDS SUMMARY | 2025-05-27 08:44 | XMS_ITS | Encounter Summary ---
Author Organization [facility] tem Address [facility]-[id number] [address] [place] [address] Care Team Providers Care Oil Tanker Captain Name Role Phone Sunny Jenkins MD Primary Care Provider [phone] Reason for Referral * Physical Therapy (Routine) - Closed Specialty Diagnoses / Procedures Referred By Contdanita t Referred To Contact Rehabilitation Diagnoses Lymphedema Sunny Jenkins MD [address] [place] [address] Phone: tel: fax: Referral ID Status Reason Start Date Expiration Date V isits Requested Visits Authorized [id number] Closed Specialty Services Required 08/12/2024 02/10/2025 1 1 Encounter Details Date Type Department Care Team (Late st Contact Info) Description 08/12/2024 Orders Only [facility] [address] [place] [address] Sunny Jenkins MD [address] [place] [address] Lymphedema (Primary Dx) Social History Tobacco [...] Office Visit [facility] [address] [place] [phone] Sunny Jenkins MD [address] [place], [place] [id number] Scheduled Referrals Name Type Priority Associated Diagnoses [...] documented as of this encounter Care Teams Oil Tanker Captain Relationship Specialty Start Date End Date Sunny Jenkins MD [address] [place] [address] PCP - General Internal Medicine 04/02/23 documented as of this encounter
--- OUTSIDE RECORDS SUMMARY | 2025-05-27 08:44 | XMS_ITS | Encounter Summary ---
Author Organization [facility] Address [address] [place] [address] Care Team Providers Care Shuttler Car Name Role Phone Chris Amanda Primary Care Provider [phone] Janet Dillard DO Unavailable UnavailSunny Coates MD Primary Care Provider [phone] Yvonne Baumann RN Unavailable [phone] Mitch Garcia MD Unavailable [phone] Hilda Templeton PA-C Unavailable [phone] Deepika Garcia Unavailable Unavailable Nona Lomax RD Unavailable [phone] Nia Snider RN Unavailable Unavailable Source Comments In the event this information is protected by the Federal Confidentiality of Alcohol and Drug AbusePatient Records regulations: The Federal rules restrict any use of the information to criminally investigate or prosecute any alcohol or drug abuse patient.[facility] Reason for Visit * Reason Comments Radiology XR Encounter Details Date Type Department Care Team (Late st Contact Info) Description 03/23/2022 Radiology Radiology [address] [place] [address] Codie Rice, RT(R) Radiology XR Social History [...] in a skilled nursing (including now)? No 03/14/2022 Area Deprivation Index Answer Date Joaquin rded National Score (1-100), lower number is lower ri sk 84 03/23/2022 State Score (1-10), lower number is lower risk N ot on file 03/23/2022 Data from: https://www.neighborhoodatlas.medicine.[facility].edu/. Last address used for calculation Armando You [...] IV DATA: Not applicable SIGNED BY: RT Demetra(R) March 23, 2022 4:01 PM documented in this encounter Plan of Treatment Upcoming Encounters Date Type Department Care Team (Late st Contact Info) Description 06/07/2025 7:30 AM EDT Specialty Pharmacy [facility] [address] [place] [address] AC4-b-[address] [place] [address] Pharmacist, [facility] [address] [place] [address] [place] [address] Refill - Kisqali [28DS] 06/08/2025 9:00 AM EDT Office Visit Rheumatology 5700 [facility] [place] [address] Immanuel Oliveros APRN.DISH MAKER [address] [place] [address] RA 06/10/2025 1:30 PM EDT Appointment Procedures [address] [place] [address] Debbie Gunn MD [address] [place] [address] [place] [address] 07/07/2025 9:00 AM [facility] Infusion Center Hematology/Oncolo gy [address] [address] [place] [address] lab 07/14/2025 9:30 AM [facility] Hematology [address] [place] [address] Mitch Garcia MD [address] [place] [address] Schedule labs prior to Virtual visit with DR Garcia 07/15/2025 9:00 AM EST Infusion Center Hematology/Oncolo gy [address] [facility] [place] [address] Prolia injection day after RADHA virtual visit per staff message 08/23/2025 10:00 AM EST Office Visit Kidney Medicine [address] [place] [address] Shante Carroll APRN.DISH MAKER [address] [facility] [address] 6 month follow up documented as of this encounter Visit Diagnoses Not on filedocumented in this encounter Care Teams Shuttler Car Relationship Specialty Start Date End Date Chris Amanda PCP - General 01/28/07 08/21/23 Sunny Jenkins MD PCP - General Internal Medicine 08/22/23 Janet Dillard DO Referring Family Medicine 07/14/21 Yvonne Baumann RN [address] [place] [address] [place] [address] Specialty Vegetable Vendor Hematology/Oncology 09/23/23 04/21/24 Mitch Garcia MD [address] [place] [address] [place] [address] Physician Hematology/Oncology 09/23/23 Hilda Templeton PA-C [address] [place] [address] [place] [address] Physician Microarray Analyst Hematology/Oncology 09/23/23 Deepika Garcia LSW Filter Press Pumper 09/24/[address] [place] [address] [place] [address] Registered Dietitian Nutrition 10/22/23 Nia Snider, MALORIE Specialty Vegetable Vendor Hematology/Oncology 04/22/24 documented as of this encounter
--- OUTSIDE RECORDS SUMMARY | 2025-05-27 08:44 | XMS_ITS | Encounter Summary ---
Author Organization [facility] Address [address] [place] [address] Care Team Providers Care Sterile Instrument Technician Name Role Phone Janet Dillard DO Unavailable Unavailabl Sunny Stone MD Primary Care Provider [phone] Mitch Garcia MD Unavailable [phone] Deepika Garcia Unavailable Unavailable Nona Lomax RD Unavailable [phone] Nia Snider RN Unavailable Unavailable Source Comments In the event this information is protected by the Federal Confidentiality of Alcohol and Drug AbusePatient Records regulations: The Federal rules restrict any use of the information to criminally investigate or prosecute any alcohol or drug abuse patient.[facility] Encounter Details Date Type Department Care Team (Late st Contact Info) Description 07/07/2024 Patient [facility] HB-3 [address] [place] [address] Jackelyn Grover RPh At your next appointment, choose [facility]. Social History Tobacco Use Types [...] risk 9 01/29/2023 Data from: https://www.neighborhoodatlas.medicine.[facility].edu/. Last address used for calculation Armando [...] AM EDT Specialty Pharmacy [facility] [address] [place] [address] AC4-b-[address] [place] [address] Pharmacist, [facility] [address] [place] [address] [place] [address] Refill - Kisqali [28DS] /20 06/08/2025 9:00 AM EDT Office Visit Rheumatology [address] [facility] [address] Immanuel Oliveros APRN.MENTAL HEALTH PROGRAM DIRECTOR 57[address] [facility] [place] [address] RA 06/10/2025 1:30 PM EDT Appointment Procedures [address] [place] [address] Debbie Gunn MD [address] [address] [place], [place] [address] 07/07/2025 9:00 AM [facility] Infusion Center Hematology/Oncolo gy [address] [place] [address] lab 07/14/2025 9:30 AM EST [facility] Hematology [address] [place] [address] Mitch Garcia MD [address] [place] [address] Schedule labs prior to Virtual visit with DR Garcia 07/15/2025 9:00 AM EST [facility] Hematology/Oncolo gy [address] [place] [address] Prolia injection day after RADHA virtual visit per staff message 08/23/2025 10:00 AM EST Office Visit Kidney Medicine [address] [place] [address] Shante Carroll APRN.MENTAL HEALTH PROGRAM DIRECTOR [address] [facility] [place] [address] 6 month follow up documented as of this encounter Visit Diagnoses Not on filedocumented in this encounter Care Teams Sterile Instrument Technician Relationship Specialty Start Date End Date Sunny Jenkins MD PCP - General Internal Medicine 08/22/23 Janet Dillard DO Referring Family Medicine 07/14/21 Mitch Garcia MD [address] [place] [address] Physician Hematology/Oncology 09/23/23 Deepika Garcia LSW Infantry Unit Leader 09/24/[address] [place] [address] [place] [address] Registered Dietitian Nutrition 10/22/23 Nia Snider, MALORIE Specialty Music Historian Hematology/Oncology 04/22/24 documented as of this encounter
--- OUTSIDE RECORDS SUMMARY | 2025-05-27 08:44 | XMS_ITS | Encounter Summary ---
Author Organization [employer] tem Address [facility][id number] [address] [place] [address] Care Team Providers Care Manga Artist Name Role Phone Sunny Jenkins MD Primary Care Provider [phone] Encounter Details Date Type Department Care Team (Late Contact Info) Description 01/09/2024 Telephone [facility] [address] [place] [address] [place] [address] Will Dean, KELLEY Social History [...] Medicine [address] [facility] [place] [address] Sunny Jenkins MD [address] [place] [address] documented as of this encounter Visit Diagnoses Not on filedocumented in this encounter Additional Health Concerns Assessment Noted Time PHQ-9 Depression Total Score: 3 05/14/20 23 3:00 PM EDT documented as of this encounter Care Teams Manga Artist Relationship Specialty Start Date End Date Sunny Jenkins MD [address] [place] [address] PCP - General Internal Medicine 04/02/23 documented as of this encounter
--- OUTSIDE RECORDS SUMMARY | 2025-05-27 08:44 | XMS_ITS | Encounter Summary ---
Author Organization [facility] Address [address] [place] [address] Care Team Providers Care Salesperson New Cars Name Role Phone Janet Dillard DO Unavailable Unavailabl Sunny Stone MD Primary Care Provider [phone] Yvonne Baumann RN Unavailable [phone] Mitch Garcia MD Unavailable [phone] Hilda Templeton PA-C Unavailable [phone] Deepika Garcia Unavailable Unavailable Nona Lomax RD Unavailable [phone] Nia Snider RN Unavailable Unavailable Source Comments In the event this information is protected by the Federal Confidentiality of Alcohol and Drug AbusePatient Records regulations: The Federal rules restrict any use of the information to criminally investigate or prosecute any alcohol or drug abuse patient.[facility] Encounter Details Date Type Department Care Team (Late st Contact Info) Description 09/23/2023 Patient [facility] Radiology Procedure [address] [place] [address] Provider, [facility] You are scheduled for a [...] risk 9 01/29/2023 Data from: https://www.neighborhoodatlas.medicine.[facility].edu/. Last address used for calculation [...] EDT Specialty Pharmacy [facility] [address] [place], [place] [address]-b-100 [place] [address] Pharmacist, Specialtygroup [address] [place] [address] [place] [address] Refill - Kisqali [28DS] C10/06/08/2025 9:00 AM EDT Office Visit Rheumatology 57[address] [place], [place] [address] Immanuel Oliveros APRN.SHIFT LEADER 5700 [place] [address] RA 06/10/2025 1:30 PM EDT Appointment Procedures [address] [place] [address] Debbie Gunn MD [address] [facility] [place] [address] 07/07/2025 9:00 AM EST Infusion Center Hematology/Oncolo gy [address] [facility] [facility] [address] lab 07/14/2025 9:30 AM EST [facility] Hematology [address] [place] [address] Mitch Garcia MD [address] [place] [address] Schedule labs prior to Virtual visit with DR Garcia 07/15/2025 9:00 AM EST [facility] Hematology/Oncolo gy [address] [facility] [place] [address] Prolia injection day after RADHA virtual visit per staff message 08/23/2025 10:00 AM EST Office Visit Kidney Medicine [address] [place] [address] Shante Carroll, TRAINING MGR.SHIFT LEADER [address] [facility] [place] [address] 6 month follow up documented as of this encounter Visit Diagnoses Not on filedocumented in this encounter Care Teams Salesperson New Cars Relationship Specialty Start Date End Date Sunny Jenkins MD PCP - General Internal Medicine 08/22/23 Janet Dillard DO Referring Family Medicine 07/14/21 Yvonne Baumann, RN [address] [facility] [place] [address] Specialty Dam Tender Hematology/Oncology 09/23/23 04/21/24 Mitch Garcia MD [address] [place] [address] Physician Hematology/Oncology 09/23/23 Hilda Templeton PA-C [address] [facility] [place] [address] Physician Deli/Bakery Associate Hematology/Oncology 09/23/23 Deepika Garcia LSW Lead Pourer 09/24/[address] [facility] [facility] [place] [address] Registered Dietitian Nutrition 10/22/23 Nia Snider, RN Specialty Dam Tender Hematology/Oncology 04/22/24 documented as of this encounter
--- OUTSIDE RECORDS SUMMARY | 2025-05-27 08:44 | XMS_ITS | Encounter Summary ---
Author Organization [facility] Address [address] [place] [address] Care Team Providers Care Recreation Superintendent Name Role Phone Janet Dillard DO Unavailable Unavailabl Sunny Stone MD Primary Care Provider [phone] Yvonne Baumann RN Unavailable [phone] Mitch Garcia MD Unavailable [phone] Hilda Templeton PA-C Unavailable [phone] Deepika Garcia Unavailable Unavailable Nona Lomax RD Unavailable [phone] Nia Snider RN Unavailable Unavailable Source Comments In the event this information is protected by the Federal Confidentiality of Alcohol and Drug AbusePatient Records regulations: The Federal rules restrict any use of the information to criminally investigate or prosecute any alcohol or drug abuse patient.[facility] Encounter Details Date Type Department Care Team (Late st Contact Info) Description 09/19/2023 Patient [facility] Radiology Procedure [address] [place] [address] Provider, [facility] You are scheduled for a [...] AM EDT Specialty Pharmacy [facility] [address] [place] [address] AC4-b[address] [place] [address] Pharmacist, Specialtygroup [address] [place] [address] [place] [address] Refill - Kisqali [28DS] C10/20 06/08/2025 9:00 AM EDT Office Visit Rheumatology 5700 [place] [address] Immanuel Oliveros APRN.WATCH PARTS INSPECTOR 5700 [place] [address] RA 06/10/2025 1:30 PM EDT Appointment Procedures [address] [place] [address] Debbie Gunn MD [address] [facility] [place] [address] 07/07/2025 9:00 AM EST Infusion Center Hematology/Oncolo gy [address] [facility] [place] [address] lab 07/14/2025 9:30 AM EST [facility] Hematology [address] [place] [address] Mitch Garcia MD [address] [place] [address] Schedule labs prior to Virtual visit with DR Garcia 07/15/2025 9:00 AM EST [facility] Hematology/Oncolo gy [address] [facility] [place] [place] [address] Prolia injection day after RADHA virtual visit per staff message 08/23/2025 10:00 AM EST Office Visit Kidney Medicine [address] [place] [address] Shante Carroll, REFRIGERATOR ASSEMBLER.WATCH PARTS INSPECTOR [address] [facility] [place] [place] [address] 6 month follow up documented as of this encounter Visit Diagnoses Not on filedocumented in this encounter Care Teams Recreation Superintendent Relationship Specialty Start Date End Date Sunny Jenkins MD PCP - General Internal Medicine 08/22/23 Janet Dillard DO Referring Family Medicine 07/14/21 Yvonne Baumann, RN [address] [facility] [place] [place] [address] Specialty Lifeline Representatives Hematology/Oncology 09/23/23 04/21/24 Mitch Garcia MD [address] [place] [address] Physician Hematology/Oncology 09/23/23 Hilda Templeton PA-C [address] [facility] [place] [place] [address] Physician Dry Kiln Burner Hematology/Oncology 09/23/23 Deepika Garcia LSW Bible Teacher 09/24/[address] [place] [place] [address] Registered Dietitian Nutrition 10/22/23 Nia Snider, RN Specialty Lifeline Representatives Hematology/Oncology 04/22/24 documented as of this encounter
--- OUTSIDE RECORDS SUMMARY | 2025-05-27 08:44 | XMS_ITS | Encounter Summary ---
Author Organization [employer] [facility] tem Address [facility][id number] [address] [place] [address] Care Team Providers Care Sourcing Assistant Name Role Phone Sunny Coleman MD Primary Care Provider [phone] Encounter Details Date Type Department Care Team (Late st Contact Info) Description 12/12/2023 [facility] [address] [place] [address] [address] [place] [address] Will eDan CMA Social History Tobacco Use Types Packs/Day [...] Visit [facility] [address] [place] [phone] Sunny Coleman MD 605 [place] [address] documented as of this encounter Visit Diagnoses Not on filedocumented in this encounter Additional Health Concerns Assessment Noted Time PHQ-9 Depression Total Score: 3 05/14/20 23 3:00 PM EDT documented as of this encounter Care Teams Sourcing Assistant Relationship Specialty Start Date End Date Sunny Coleman MD [address] [place] [address] PCP - General Internal Medicine 04/02/23 documented as of this encounter
--- OUTSIDE RECORDS SUMMARY | 2025-05-27 08:44 | XMS_ITS | Encounter Summary ---
Author Organization [employer] tem Address [facility]-[id number] [address] [place] [address] Care Team Providers Care Ordering Machine Operator Name Role Phone Sunny Jenkins MD Primary Care Provider [phone] Encounter Details Date Type Department Care Team (Late st Contact Info) Description 01/28/2024 Telephone [facility] Rheumatology [address] [facility] [address] [place] [address] Leatha Pepper CNA Social History [...] 11:26 AM EDT Pat (radiation nurse) from [facility] called on behalf Dr. Brittany Aponte. Pat stated due to possible radiation Dr. Aponte wants the patient to stop using methotrexate 3-4 weeks prior & 1 month after it is completed. Pat asked would Dr. Barry be agreeable with these changes? Any question give their office a call at [phone]. * Telephone Encounter - Errol Barry MD [...] Description 06/22/2025 9:00 AM EDT Office Visit [facility] Family Medicine [address] [place] [phone] Sunny Jenkins MD 605 [place] [address] documented as of this encounter Visit Diagnoses Not on filedocumented in this encounter Additional Health Concerns Assessment Noted Time PHQ-9 Depression Total Score: 3 05/14/20 23 3:00 PM EDT documented as of this encounter Care Teams Ordering Machine Operator Relationship Specialty Start Date End Date Sunny Jenkins MD [address] [facility] [place] [address] PCP - General Internal Medicine 04/02/23 documented as of this encounter
--- OUTSIDE RECORDS SUMMARY | 2025-05-27 08:44 | XMS_ITS | Encounter Summary ---
Author Organization [employer] tem Address [id number] [address] [place] [address] Care Team Providers Care Language And Literature Division Chair Name Role Phone Sunny Jenkins MD Primary Care Provider [phone] Encounter Details Date Type Department Care Team (Late Contact Info) Description 08/04/2024 Orders Only [facility] [address] [place] [address] [place] [address] External, Scanning Provider Social History Tobacco Use [...] Family Medicine [address] [facility] [place] [address] Sunny Jenkins MD [address] [place], [place] [address] documented as of this encounter Visit Diagnoses Not on filedocumented in this encounter Additional Health Concerns Assessment Noted Time PHQ-9 Depression Total Score: 3 06/10/20 24 9:00 AM EDT documented as of this encounter Care Teams Language And Literature Division Chair Relationship Specialty Start Date End Date Sunny Jenkins MD [address] [place] [address] PCP - General Internal Medicine 04/02/23 documented as of this encounter
--- OUTSIDE RECORDS SUMMARY | 2025-05-27 08:44 | XMS_ITS | Encounter Summary ---
Author Organization [employer] Address [id number] [address] [place] [address] Care Team Providers Care Sulfuric Acid Plant Operator Name Role Phone Sunny Jenkins MD Primary Care Provider [phone] Encounter Details Date Type Department Care Team (Late st Contact Info) Description 12/30/2023 Telephone [facility] [address] [place] [address] [place] [address] Steph Rendon CMA Social History [...] Visit [facility] [address] [place] [id number] Sunny Jenkins MD [address] [facility] [address] [facility] [place] [address] documented as of this encounter Visit Diagnoses Not on filedocumented in this encounter Additional Health Concerns Assessment Noted Time PHQ-9 Depression Total Score: 3 05/14/20 23 3:00 PM EDT documented as of this encounter Care Teams Sulfuric Acid Plant Operator Relationship Specialty Start Date End Date Sunny Jenkins MD [address] [facility] [place] [address] PCP - General Internal Medicine 04/02/23 documented as of this encounter
--- OUTSIDE RECORDS SUMMARY | 2025-05-27 08:44 | XMS_ITS | Encounter Summary ---
Author Organization [employer] Address [id number] [address] [place] [address] Care Team Providers Care Benefits Assistant Name Role Phone Sunny Jenkins MD Primary Care Provider [phone] Encounter Details Date Type Department Care Team (Late Contact Info) Description 02/03/2024 Orders Only [facility] Oncology - Radiation Oncology [address] [place] [id number] Ref Prov, [place] [address] Social History Tobacco Use Types Packs/Day Years [...] Family Medicine [address] [place] [address] Sunny Jenkins MD [address], [place], [place] [id number] documented as of this encounter Procedures Procedure [...] documented as of this encounter Care Teams Benefits Assistant Relationship Specialty Start Date End Date Sunny Jenkins MD [address] [facility] [address], [facility] [place] [address] PCP - General Internal Medicine 04/02/23 documented as of this encounter
[2025-05-27] MEDS: 0.9 % SODIUM CHLORIDE 1,000 ML 250 ML IV (09:12)
[2025-05-27 09:32] LABS: Hematocrit 36.0 % (36.0-48.0); Hemoglobin 12.3 g/dL (12.0-16.0); Mean Corpuscular HGB Conc 34.2 g/dL (29.9-35.2); Mean Corpuscular Hemoglobin 35.8 pg (26.7-34.0); Mean Corpuscular Volume 104.7 fL (81.0-99.0); Platelet Count 211 10^3/uL (150-450); Red Blood Count 3.44 10^6/uL (4.20-5.40); White Blood Count 4.2 10^3/uL (4.0-11.0)
[2025-05-27 09:43] LABS: Alanine Aminotransferase 24 U/L (14-59); Albumin Globulin Ratio 0.8; Albumin Level 3.3 g/dL (3.4-5.0); Alkaline Phosphatase 94 U/L (46-116); Anion Gap 17.4; Aspartate Amino Transferase 11 U/L (15-37); Blood Urea Nitrogen 16.0 mg/dL (7.0-18.0); Calcium 8.7 mg/dL (8.5-10.1); Carbon Dioxide 25.5 mmol/L (21.0-32.0); Chloride 100 mmol/L (98-107); Estimated GFR (African America 44 (>=60 mL/min/1.73m^2); Estimated GFR (Non-African Ame 36 (>=60 mL/min/1.73m^2); Globulin 4.0 g/dL; Glucose 185 mg/dL (74-106); Potassium 3.9 mmol/L (3.5-5.1); Sodium 139 mmol/L (136-145); Total Protein 7.3 g/dL (6.4-8.2)
[2025-05-27 09:44] LABS: Lactate/Lactic Acid 1.9 mmol/L (0.4-2.0)
--- NOTE | 2025-05-27 09:46 | PC.NURSE ---
pt adjusted for comfort in bed at this time -- had taken off her gown so this RN helped get it back on. warm blankets on. denies any other needs at this time
[2025-05-27 09:50] LABS: NT Pro B Type Natriuretic Pept 218.0 pg/mL (<=900.0)
[2025-05-27 10:33] LABS: Atypical Lymphocytes % Manual 6.0 %; Atypical Lymphocytes Abs Man 0.25; Basophils Abs Manual 0.00 10^3/uL (0.00-0.10); Basophils Percent Manual 0.0 % (0.2-2.0); Eosinophils Absolute Manual 0.00 10^3/uL (0.00-0.70); Eosinophils Percent Manual 0.0 % (0.9-7.0); Lymphocytes Absolute Manual 0.58 10^3/uL (1.20-3.80); Lymphocytes Percent Manual 14.0 % (20.5-60.0); Monocytes Absolute Manual 0.12 10^3/uL (0.30-0.80); Monocytes Percent Manual 3.0 % (1.7-12.0); Segmented Neut Absolute Manual 3.23 10^3/uL (1.4-6.5); Segmented Neutrophils % Manual 77.0 (43.0-75.0)
--- NOTE | 2025-05-27 10:45 | CT_ITS ---
The [address] [address] Patient Name: MINAL CAPUTO MRN: [id number] date: 1955 Sex: F Assigned Patient Location: ER Current Patient Location: Accession/Order Number: [id number] Exam Date: 05/27/2025 10:24 Report Date: 05/27/2025 11:36 At the request of: ZABRINA BENITEZ Procedure: CT angio chest CT PULMONARY ANGIOGRAM WITH CONTRAST CLINICAL HISTORY: shortness of breath. Elevated d-dimer. COMPARISON: 07/25/2024 TECHNIQUE: Spiral images were obtained through the chest following intravenous administration of 100 mL of Omnipaque 350. Images were reviewed using both narrow and wide window settings. Sagittal, coronal and 3 D volume-rendered reconstructions were performed and reviewed. This CT exam was performed using one or more following dose reduction techniques: Automated exposure control, adjustment of the mA and/or kV according to patient size, or use of iterative reconstruction technique. FINDINGS: The heart is. Normal in size. There is no pericardial effusion. No aortic aneurysm or dissection is seen. There is adequate opacification of the pulmonary arteries. Distal main as well as segmental and subsegmental pulmonary artery filling defects are present bilaterally compatible with emboli. No pathologic lymphadenopathy is seen. Thyroid nodularity is again noted on the right. There is prior left mastectomy and axillary lymph node dissection. There is a large hiatal hernia. Prominent S-shaped thoracolumbar scoliotic curvature is seen and there are Valadez rods. There is bibasilar atelectasis and/or scarring, greater on the left. Apical scarring is also seen, greater on the right. There is no developing consolidation, effusion or pneumothorax. Limited cuts through the upper abdomen show no contributory abnormality. CT/CT angio chest IMPRESSION: BILATERAL PULMONARY EMBOLI. ATELECTASIS AND/OR SCARRING. LARGE HIATAL HERNIA. Impression dictated by: Pat Roberts M.D. 05/27/2025 11:36 AM Dictation Location: [place] [address] Electronically authenticated by: [id number] Y Date: 05/27/2025 11:36
--- NOTE | 2025-05-27 10:50 | PC.NURSE ---
pt back from CT, vitals obtained
[2025-05-27 11:59] LABS: INR 1.14; Prothrombin Time 11.9 sec (9.0-11.6)
[2025-05-27 12:04] LABS: Partial Thromboplastin Time 26.3 sec (22.3-36.2)
[2025-05-27] MEDS: HEPARIN SODIUM (PORCINE) 5,000 UNIT/ML VIAL 4100 UNIT IV (12:11)
[2025-05-27] MEDS: HEPARIN SODIUM,PORCINE/D5W 25,000 UNIT/500 ML IV.SOLN 28 UNIT IV (12:13)
--- NOTE | 2025-05-27 14:06 | PC.NURSE ---
report called to Felipe ESPANA [facility]
== END 2025-05-27 14:52 | disposition short-term general hospital (02) ==
PROVIDERS: Emergency Provider Emergency Medicine; PCP Student in an Organized Health Care Education/Training Program
DX: I26.99 Other pulmonary embolism without acute cor pulmonale (principal); R79.89 Other specified abnormal findings of blood chemistry; R06.02 Shortness of breath; K44.9 Diaphragmatic hernia without obstruction or gangrene; Z90.12 Acquired absence of left breast and nipple; Z79.60 Long term (current) use of unspecified immunomodulators and immunosuppressants; C50.912 Malignant neoplasm of unspecified site of left female breast
CPT/HCPCS: 36415; 71045; 71275; 80053; 83605; 83880; 84484; 85007; 85027; 85378; 85610; 85730; 87040; 93005; 96374; 99285; J1644; Q9967